=== PATIENT | female | born 1935 | race Asian ===

== ENCOUNTER 2017-01-06 22:35 | Inpatient (IN) | payer MEDICARE, OTHER ==
[~2017-01-06] VITALS: Ht 144.8 cm; Wt 41.5 kg
[~2017-01-06 22:35] MED LIST: CALC650T12 PO; DICL75TA2 PO; DOCU250C58 PO; FER325 PO; FURO40SO PO; GABA300S PO; HYDR-3672 PO; METO-429 PO; NIFE60TA7 PO; PANT40TA4 PO; POTA8CAP PO; SITA50TA2 PO; vit d
[2017-01-06 23:00] VITALS: BP 128/69; PULSE 62; RESP 20
[2017-01-06] MEDS ORDERED: MAGNESIUM HYDROXIDE 30ML CUP PO PRN (23:30)
[2017-01-06] MEDS ORDERED: LACTULOSE 30ML CUP PO PRN (23:30)
[2017-01-06] MEDS ORDERED: BISACODYL 10 MG SUPP PR PRN (23:30)
[2017-01-06 23:56] VITALS: Ht 144.8 cm; Wt 41.5 kg
[2017-01-07] MEDS ORDERED: GUAIFENESIN/DM 5ML CUP PO PRN
[2017-01-07] MEDS ORDERED: LORAZEPAM 2 MG INJ IV PRN
[2017-01-07] MEDS ORDERED: ONDANSETRON 4 MG INJ IV PRN
[2017-01-07] MEDS ORDERED: LORAZEPAM 1 MG TAB PO PRN
[2017-01-07] MEDS ORDERED: DEXTROSE 50% 50 ML SYRINGE IV PRN ×2 (01:00)
[2017-01-07] MEDS ORDERED: GLUCAGON 1 MG INJ IM PRN (01:00)
[2017-01-07] MEDS ORDERED: GLUCOSE GEL 15 GRAM TUBE PO PRN ×2 (01:00)
[2017-01-07] MEDS ORDERED: GLUCOSE GEL 15 GRAM TUBE BUCCAL PRN (01:00)
[2017-01-07] MEDS: ACCUCHECK AT 2AM (Patients on SS coverage) XX SCH (02:45)
[2017-01-07] MEDS: PANTOPRAZOLE (EC) 40 MG TAB PO SCH (06:30)
[2017-01-07 07:30] VITALS: BP 156/69; RESP 20
[2017-01-07] MEDS ORDERED: NOVOLOG PEN INSULIN ASPART (BOLUS with meals) SC SCH (07:35)
[2017-01-07 07:48] LABS: ADD SCAN DIFF NO
[2017-01-07 07:53] LABS: ABNORMAL IP MESSAGE 1; EOSINOPHILS # 0.2 10^3/ul (0.0-0.5); EOSINOPHILS % 3.4 % (0.0-7.0); HEMATOCRIT 32.7 % (37.0-47.0); HEMOGLOBIN 10.3 g/dl (12.0-16.0); LYMPHOCYTES % 14.7 % (15.0-51.0); MEAN CORPUSCULAR HEMOGLOBIN 24.1 pg (29.0-33.0); MEAN CORPUSCULAR HGB CONC 31.5 g/dl (32.0-37.0); MEAN CORPUSCULAR VOLUME 76.6 fl (82.0-101.0); MONOCYTE # 0.8 10^3/ul (0.3-0.9); MONOCYTES % 11.8 % (0.0-11.0); NEUTROPHIL # 4.9 10^3/ul (1.6-7.5); NEUTROPHILS % 69.7 % (39.0-77.0); PLATELET COUNT 140 10^3/UL (140-415); RED BLOOD COUNT 4.27 10^6/ul (4.20-5.40); RED CELL DISTRIBUTION WIDTH 22.5 % (11.5-14.5)
[2017-01-07 08:03] LABS: ALBUMIN 2.8 g/dl (3.3-4.9)
[2017-01-07 08:04] LABS: POTASSIUM 4.9 mmol/L (3.5-5.1)
[2017-01-07] MEDS: NOVOLOG PEN INSULIN ASPART (BOLUS with meals) SC SCH ×3 (08:04→17:59)
[2017-01-07] MEDS: Insulin NOVOLOG SS MILD Algorithm (SS with meals and bedtime) SC SCH ×4 (08:05→21:52)
[2017-01-07 08:06] LABS: ALBUMIN/GLOBULIN RATIO 0.77; BILIRUBIN,INDIRECT 0.6 mg/dl (0-1.1); BILIRUBIN,TOTAL 0.6 mg/dl (0.2-1.3); CREATININE 2.16 mg/dl (0.44-1.00); TOTAL PROTEIN 6.4 g/dl (6.1-8.1)
[2017-01-07 08:07] LABS: CALCIUM 7.9 mg/dl (8.4-10.2)
[2017-01-07 08:07] LABS: ADD UMIC YES; URINE BILIRUBIN (Dip) NEGATIVE (NEGATIVE); URINE BLOOD (Dip) NEGATIVE (NEGATIVE); URINE COLOR LT. YELLOW (YELLOW); URINE GLUCOSE (Dip) NEGATIVE (NEGATIVE); URINE KETONES (Dip) NEGATIVE (NEGATIVE); URINE LEUKOCYTE ESTERASE (Dip) NEGATIVE (NEGATIVE); URINE NITRITE (Dip) NEGATIVE (NEGATIVE); URINE TOTAL PROTEIN (Dip) 2+ (NEGATIVE); URINE UROBILINOGEN (Dip) 0.2 E.U./dL (0.1-1.0)
[2017-01-07 08:26] LABS: SQUAMOUS EPITHELIAL CELL,UR OCCASIONAL; URINE RBCS NONE SEEN /HPF (0)
[2017-01-07] MEDS: ACETAMINOPHEN 325 MG TAB PO PRN ×3 (08:34→21:48)
[2017-01-07] MEDS: ASPIRIN 81 MG TAB PO SCH (08:34)
[2017-01-07] MEDS: METOPROLOL 25 MG TAB PO SCH ×2 (08:35→21:32)
[2017-01-07] MEDS: DOCUSATE SODIUM 100 MG CAP PO SCH ×2 (08:35→21:32)
[2017-01-07] MEDS: OLANZAPINE 5 MG TAB PO SCH (08:36)
[2017-01-07] MEDS: ISOSORBIDE DINITRATE (SA) 40 MG TAB PO SCH ×3 (08:36→21:49)
[2017-01-07] MEDS: AMLODIPINE 5 MG TAB PO SCH ×2 (08:36→21:32)
[2017-01-07] MEDS: HEPARIN 5,000 UNIT/0.5 ML SYG SC SCH ×2 (08:37→21:51)
--- NOTE | 2017-01-07 11:03 | HP ---
DATE OF ADMISSION: 01/06/2017 CHIEF COMPLAINT: Respiratory failure, urinary tract infection HISTORY OF PRESENT ILLNESS: This is a 81-year-old female with a past medical history of diabetes, h ypertension, COPD, history of CKD stage IV, history of diastolic heart failure, anemia, insomnia who was admitted to an outside hospital with acute respiratory failure and altered mental status. The patient was in her usual state of health until about 2 days prior to admission when she was complain ing of shortness of breath, increased chest pain, cough. As a result, she came into [facility] and was subsequently admitted. The patient was diagnosed with acute respiratory failure secondary to pneumonia as well as chronic obstructive pulmonary disease exacerbation and urinary tr act infection. The patient was treated with IV antibiotics, nebulized therapy, steroids with clinic al improvement. Patient during the hospital course did have an episode of acute encephalopathy whic h is felt to be due to prolonged hospital stay and sepsis. The patient had a CT scan of the head wh ich was negative for any acute findings. The patient's mental status improved back towards baseline . The patient also had acute kidney injury during the hospital course. This was felt to be seconda ry to sepsis. Her renal function stabilized and returned back to her previous baseline. The patient was subsequently stabilized and transferred over to [facility] for continued c are. Upon my evaluation of the patient at this time she is currently stable, has no fevers, chills, nause a, vomiting. PAST MEDICAL HISTORY: As stated above, history of CKD stage IV, diabetes, anemia, osteoarthritis, C OPD, diastolic heart failure. PAST SURGICAL HISTORY: . ALLERGIES: NO KNOWN DRUG ALLERGIES. FAMILY HISTORY: No family history of kidney disease or heart disease. MEDICATIONS: Patient medications have been reviewed and reconciled. REVIEW OF SYSTEMS: A 14-point review of systems was conducted. Pertinent positives in HPI, otherwi se negative. PHYSICAL EXAMINATION: VITAL SIGNS: Blood pressure is 120/69, respirations 20, pulse 62, temperature 98.5. HEENT: Head is normocephalic. NECK: Supple. HEART: Regular rate. LUNGS: Show diminished breath sounds at the base. ABDOMEN: Soft, nontender to palpation. No rebound or guarding. EXTREMITIES: Negative for clubbing, cyanosis, no edema. DERMATOLOGIC: No rashes. MUSCULOSKELETAL: No joint effusions. NEUROLOGIC: No change in exam. MEDICATIONS: The patient's medications have been reviewed. LABORATORY DATA: Shows a white count of 7.0, hemoglobin 10.3, hematocrit 32.7, platelet count 140. Sodium 142, potassium 4.9, chloride 108, BUN 52, creatinine 2.16. ASSESSMENT AND PLAN: This is a 81-year-old female who presents with: 1. Acute respiratory failure secondary to chronic obstructive pulmonary disease exacerbation, pneum onia. The patient is clinically improved status post antibiotics. At this point, continue current treatment plan. Continue supplemental oxygen and nebulizer therapy, monitor closely. 2. Nonoliguric acute kidney injury on top of chronic kidney disease, stage IV. Etiology secondary to hemodynamics. The patient's renal function has improved, currently at baseline. Continue suppor tive care, renally dose all meds, avoid nephrotoxins. 3. Urinary tract infection. Patient has completed antibiotic course. 4. Acute encephalopathy and dementia. Etiology is toxic metabolic. The patient's mental status im proved. Continue to monitor. 5. History of diastolic heart failure. The patient is currently stable, euvolemic. Continue medic al management. 6. Hypertension. Continue current blood pressure regimen. 7. Diabetes. Continue current insulin regimen. 8. Anemia. The patient is status post blood transfusion. Continue to monitor H and H levels. 9. GI and deep venous thrombosis prophylaxis. Continue proton pump inhibitor and heparin. 10. General debility. Continue physical therapy. 11. Dementia. Continue Zyprexa. Dictated By: MIKE ROSA/MADAN Conf#: [id number] DID#: [id number]
--- NOTE | 2017-01-07 13:07 | CONS ---
DATE OF ADMISSION: 01/06/2017 DATE OF CONSULTATION: 01/06/2017 TYPE OF CONSULTATION: REHABILITATION POST-ADMISSION PHYSICIAN EVALUATION. REHABILITATION IMPAIRMENT CATEGORY: Toxic metabolic encephalopathy. ACTIVE COMORBIDITIES: 1. Status post acute respiratory failure chronic pulmonary disease exacerbation. 2. Diastolic heart failure. 3. Diabetes mellitus type 2. 4. Hypertension. 5. Acute kidney injury. 6. Urinary tract infection. 7. Impairments in self-care, mobility and cognition. HISTORY OF PRESENT ILLNESS: The patient is a pleasant 81-year-old female with a history of multipl e medical comorbidities who presented with increasing shortness of breath, cough and chest discomfor t. The patient was noted to have acute respiratory failure secondary to chronic obstructive pulmona ry disease exacerbation and diastolic heart failure. The patient was also noted to have acute on ch ronic encephalopathy in addition to acute kidney injury. She was also followed closely for her diab etes mellitus and her hypertension. Patient has been noted to have a significant impairment in self -care and mobility as compared to baseline, and has now been cleared to transfer to the rehabilitati on unit for comprehensive interdisciplinary rehab care. FUNCTIONAL HISTORY: Prior to recent events, the patient was independent in self-care tasks and mobi lity. Currently, the patient requires maximal assist for self-care and moderate assist for mobility tasks. SOCIAL HISTORY: The patient reportedly lives at home with family and hopes to return there upon dis charge. PAST MEDICAL HISTORY: 1. Diabetes mellitus. 2. Hypertension. 3. COPD. 4. Chronic kidney disease. 5. Anemia. CURRENT MEDICATIONS: 1. Insulin sliding scale. 2. Metoprolol 25 mg b.i.d. 3. Aspirin 81 mg p.o. daily. 4. Protonix 40 mg p.o. daily. 5. Zofran p.r.n. 6. Isordil 20 mg t.i.d. 7. Apresoline p.r.n. 8. Heparin subq. 9. Norvasc 5 mg b.i.d. 10. NovoLog 8 units subcutaneous prior to meals. 11. Ativan p.r.n. 12. Levemir 60 units subcu at bedtime. 13. Zyprexa 5 mg p.o. daily. 14. Robitussin p.r.n. ALLERGIES: THE PATIENT WITH NO KNOWN DRUG ALLERGIES. PHYSICAL EXAMINATION: VITAL SIGNS: The patient is currently afebrile with stable vital signs. HEENT: Extraocular motions intact. Oropharynx clear. NECK: Supple. LUNGS: Clear anteriorly. CARDIAC: S1, S2. ABDOMEN: Soft, nontender, positive bowel sounds. EXTREMITIES: Reveals multiple ecchymoses. NEUROLOGIC: She is awake and alert. She is oriented to person. She will follow simple 1-step com mands. She demonstrates antigravity strength in bilateral upper extremity and lower extremity. PLAN: The patient has been admitted for comprehensive interdisciplinary acute rehab and is anticipa gilbert to tolerate 3 hours of daily therapy in divided doses for at least 5/7 days a week. Treatment p harish will include: 1. Physical therapy to focus on bed mobility, transfers, and household ambulation with the goal of having the patient reach standby assist level. 2. Occupational therapy to focus on hygiene, grooming, dressing, bathing, and toileting activities with goal of having the patient reach standby assist level. 3. Speech therapy for full cognitive assessment and retraining with the goal of having the patient return to baseline cognition. 4. Rehabilitation nursing for carryover of therapeutic interventions, the goal of continent of rachael l and bladder, and the goal of pain adequately managed on oral medications. REHABILITATION BARRIER: Cognition. INTERVENTION FOR BARRIER: Speech therapy. ESTIMATED LENGTH OF STAY: 10 days. DISPOSITION GOAL: Home. I acknowledge that I performed a full physical examination on this patient within 24 hours of admiss ion to the rehabilitation unit and believe the patient is a good candidate for comprehensive interdi sciplinary rehab care and is anticipated to make reasonable goals in a reasonable period of time as outlined above. Dictated By: ADRIANNE OLIVAREZ/MADAN Conf#: [id number] DID#: [id number]
[2017-01-07 20:00] VITALS: BP 133/60; RESP 18
[2017-01-07] MEDS: SENNA TAB PO SCH (21:32)
[2017-01-07] MEDS: INSULIN DETEMIR [LEVEMIR] 3ML CART SC SCH (21:50)
[2017-01-08] MEDS: ACCUCHECK AT 2AM (Patients on SS coverage) XX SCH (02:30)
[2017-01-08] MEDS: PANTOPRAZOLE (EC) 40 MG TAB PO SCH (06:35)
[2017-01-08] MEDS: Insulin NOVOLOG SS MILD Algorithm (SS with meals and bedtime) SC SCH ×4 (07:05→21:00)
[2017-01-08] MEDS: OLANZAPINE 5 MG TAB PO SCH (08:27)
[2017-01-08] MEDS: DOCUSATE SODIUM 100 MG CAP PO SCH ×2 (08:27→20:42)
[2017-01-08] MEDS: AMLODIPINE 5 MG TAB PO SCH ×2 (08:27→20:40)
[2017-01-08] MEDS: ASPIRIN 81 MG TAB PO SCH (08:27)
[2017-01-08] MEDS: METOPROLOL 25 MG TAB PO SCH ×2 (08:28→21:34)
[2017-01-08] MEDS: ISOSORBIDE DINITRATE (SA) 40 MG TAB PO SCH ×3 (08:28→20:40)
[2017-01-08] MEDS: ACETAMINOPHEN 325 MG TAB PO PRN (08:29)
[2017-01-08] MEDS: NOVOLOG PEN INSULIN ASPART (BOLUS with meals) SC SCH ×3 (08:30→17:54)
[2017-01-08] MEDS: HEPARIN 5,000 UNIT/0.5 ML SYG SC SCH (08:31)
--- NOTE | 2017-01-08 09:42 | PN ---
DATE: 01/08/2017 SUBJECTIVE: The patient is complaining of left foot pain. No other acute events noted. No hemopty sis, hematemesis or hematochezia. OBJECTIVE: VITAL SIGNS: Blood pressure 133/60, respirations 18, pulse 68, temperature 97.8. HEENT: Head is normocephalic. NECK: Supple. HEART: Regular rate. LUNGS: Show diminished breath sounds at the base. ABDOMEN: Soft, nontender to palpation. No rebound or guarding. EXTREMITIES: Negative for clubbing or cyanosis. No edema. Positive tenderness to palpation of the left anterior dorsal foot. NEUROLOGIC: No change in exam. DERMATOLOGIC: No rashes. MEDICATIONS: The patient's medications have been reviewed. LABORATORY DATA: Currently pending. ASSESSMENT AND PLAN: 1. Acute respiratory failure secondary to chronic obstructive pulmonary disease exacerbation and pn eumonia. The patient is clinically improved. The patient is status post antibiotics. Will continu e to monitor. 2. Nonoliguric acute kidney injury on top of chronic kidney disease stage IV. Etiology is secondar y to hemodynamics. Renal function has stabilized back to baseline. Continue supportive care. 3. Urinary tract infection. The patient completed an antibiotic course. 4. Left foot pain. Etiology is unclear. Will check a chest x-ray, check a uric acid level, contin ue pain control. 5. History of diastolic heart failure. Continue medical management. 6. Hypertension. Continue the current blood pressure regimen. 7. Diabetes. Continue the current insulin regimen. 8. Anemia. The patient is status post blood transfusion. Continue to monitor hemoglobin and hemat ocrit levels. 9. Dementia. Continue Zyprexa. 10. Gastrointestinal and deep venous thrombosis prophylaxis. Continue proton pump inhibitor and Lo venox. Dictated By: MIKE ALBERT DO NR/NTS Conf#: [id number] DID#: [id number]
[2017-01-08 16:26] VITALS: BP 150/53; RESP 16
--- NOTE | 2017-01-08 16:53 | RADRPT ---
PROCEDURE: XR Left Foot. CLINICAL INDICATION: Left foot pain. TECHNIQUE: Two views. Frontal and lateral. COMPARISON: None. FINDINGS: There is no acute fracture or dislocation. There is an old healed fracture of the distal neck of th e third metatarsal with minimal deformity. The soft tissues are normal. There is diffuse osteopenia. Articular surfaces are intact. There is no lytic or blastic lesion. There is no radiopaque foreign body. IMPRESSION: 1. Diffuse osteopenia. 2. Old healed fracture of the distal neck of the third metatarsal. 3. Otherwise normal images of the left foot. RPTAT: QQ .Lane Hernandez MD, MD Date Time Electronically viewed and signed by .Lane Hernandez MD, on 01/08/2017 16:52 .R/
[2017-01-08 20:10] VITALS: BP 138/65; RESP 20
[2017-01-08] MEDS: SENNA TAB PO SCH (20:40)
[2017-01-08] MEDS: ZOLPIDEM 5 MG TAB PO PRN (20:41)
[2017-01-08] MEDS: INSULIN DETEMIR [LEVEMIR] 3ML CART SC SCH (20:51)
[2017-01-09] MEDS: ACCUCHECK AT 2AM (Patients on SS coverage) XX SCH (02:00)
[2017-01-09] MEDS: PANTOPRAZOLE (EC) 40 MG TAB PO SCH (06:37)
[2017-01-09 07:00] LABS: ADD SCAN DIFF NO
[2017-01-09 07:09] LABS: ABNORMAL IP MESSAGE 1; BASOPHILS % 0.2 % (0.0-2.0); EOSINOPHILS # 0.2 10^3/ul (0.0-0.5); HEMATOCRIT 32.2 % (37.0-47.0); HEMOGLOBIN 10.4 g/dl (12.0-16.0); LYMPHOCYTES # 0.8 10^3/ul (0.8-2.9); LYMPHOCYTES % 13.7 % (15.0-51.0); MEAN CORPUSCULAR HEMOGLOBIN 24.6 pg (29.0-33.0); MEAN CORPUSCULAR HGB CONC 32.3 g/dl (32.0-37.0); MEAN CORPUSCULAR VOLUME 76.3 fl (82.0-101.0); MONOCYTE # 0.6 10^3/ul (0.3-0.9); MONOCYTES % 9.6 % (0.0-11.0); NEUTROPHIL # 4.4 10^3/ul (1.6-7.5); PLATELET COUNT 175 10^3/UL (140-415); RED BLOOD COUNT 4.22 10^6/ul (4.20-5.40); RED CELL DISTRIBUTION WIDTH 22.1 % (11.5-14.5)
[2017-01-09 07:27] LABS: POTASSIUM 4.4 mmol/L (3.5-5.1)
[2017-01-09 07:29] LABS: CREATININE 2.44 mg/dl (0.44-1.00)
[2017-01-09 07:30] LABS: CALCIUM 8.3 mg/dl (8.4-10.2); MAGNESIUM 2.4 mg/dl (1.7-2.5)
[2017-01-09 07:44] VITALS: BP 147/65; PULSE 59; RESP 20
[2017-01-09] MEDS: OLANZAPINE 5 MG TAB PO SCH (08:11)
[2017-01-09] MEDS: ASPIRIN 81 MG TAB PO SCH (08:13)
[2017-01-09] MEDS: AMLODIPINE 5 MG TAB PO SCH ×2 (08:13→20:07)
[2017-01-09] MEDS: METOPROLOL 25 MG TAB PO SCH ×2 (08:13→20:07)
[2017-01-09] MEDS: DOCUSATE SODIUM 100 MG CAP PO SCH ×2 (08:14→20:06)
[2017-01-09] MEDS: ISOSORBIDE DINITRATE (SA) 40 MG TAB PO SCH ×3 (08:14→21:01)
[2017-01-09] MEDS: Insulin NOVOLOG SS MILD Algorithm (SS with meals and bedtime) SC SCH ×4 (08:17→21:04)
[2017-01-09] MEDS: NOVOLOG PEN INSULIN ASPART (BOLUS with meals) SC SCH ×3 (08:17→17:38)
[2017-01-09] MEDS: ENOXAPARIN 30 MG/0.3 ML SYG SC SCH (08:18)
--- NOTE | 2017-01-09 09:39 | PN ---
DATE: 01/09/2017 SUBJECTIVE: The patient is stable, no acute events overnight. No fevers, chills, nausea, vomiting. OBJECTIVE: VITAL SIGNS: Blood pressure 146/65, respiration 20, pulse 59, temperature 98.2. HEENT: Head is normocephalic. NECK: Supple. HEART: Regular rate. LUNGS: Show diminished breath sounds at the base. ABDOMEN: Soft, nontender to palpation. No rebound or guarding. EXTREMITIES: Negative for clubbing, cyanosis, no edema. DERMATOLOGIC: No rashes. MUSCULOSKELETAL: No joint effusions. The patient has mild pain over the left foot, improved. NEUROLOGICAL: No change in exam. IMAGING: X-rays of the left foot shows diffuse osteopenia, old healed fracture, otherwise, normal. LABORATORY DATA: Laboratory data shows uric acid 8.3. Sodium 147, potassium 4.4, chloride 113, BUN 6, creatinine 2.44. White count 6.9, hemoglobin 10.4, hematocrit 32.2, platelet count is 175. ASSESSMENT AND PLAN: 1. Acute respiratory failure secondary to chronic obstructive pulmonary disease exacerbation, pneum onia. The patient is clinically improving. Continue supplemental oxygen. The patient is status po st antibiotics. 2. Nonoliguric acute kidney injury on top of chronic kidney disease stage IV. Etiology is secondar y to hemodynamics, sepsis. Renal function is near baseline. Continue current treatment plan, suppo rtive care, renally dose all meds. 3. Urinary tract infection. The patient has completed antibiotic course. 4. Left foot pain. The patient's x-ray shows no acute fracture. The patient has an elevated uric acid level, questionable gout. We will continue to monitor. If pain continues we will give colchic ine. 5. Acute diastolic heart failure. Continue medical management. 6. Hypertension. Continue current blood pressure regimen. 7. Diabetes. Continue current insulin regimen. 8. Anemia. Continue to monitor hemoglobin and hematocrit levels. 9. Dementia. Continue Zyprexa. 10. Gastrointestinal and deep venous thrombosis prophylaxis. Continue proton pump inhibitor and Lo venox. 11. Hypernatremia. We will encourage free water intake 300 mL q. shift. Dictated By: MIKE ROSA/MADAN Conf#: [id number] DID#: [id number]
[2017-01-09 09:54] VITALS: BP 147/65; RESP 18
--- NOTE | 2017-01-09 11:23 | CONS ---
Date/Time of Note Date/Time of Note DATE: 01/09/17 TIME: 11:22 Consult Date/Type/Reason Admit Date/Time Jan 06, 2017 at 22:35 Initial Consult Date Subjective Doing well Objective pulm-cta abd-soft min assist ambulation Vital Signs Date Time Temp Pulse Resp B/P Pulse Ox O2 Delivery O2 Flow Rate FiO2 01/09/17 09:54 98.2 59 18 147/65 94 01/09/17 07:44 Room Air 01/07/17 19:32 2.0 Intake and Output 01/08/17 01/08/17 01/09/17 15:00 23:00 07:00 Intake Total 300 ml 50 ml Balance 300 ml 50 ml Results/Medications Result Diagram: 01/09/17 0600 01/09/17 0600 Results 24 hrs Laboratory Tests Test 01/08/17 11:45 01/08/17 17:02 01/08/17 20:36 01/09/17 06:00 Bedside Glucose 128 138 143 Anion Gap 17 H Basophils # 0.0 Basophils % 0.2 Blood Urea Nitrogen 60 H Calcium Level 8.3 L Carbon Dioxide Level 21 Chloride Level 113 H Creatinine 2.44 H Eosinophils # 0.2 Eosinophils % 3.0 Glucose Level 189 Hematocrit 32.2 L Hemoglobin 10.4 L Lymphocytes # 0.8 Lymphocytes % 13.7 L Magnesium Level 2.4 Mean Corpuscular Hemoglobin 24.6 L Mean Corpuscular Hemoglobin Concent 32.3 Mean Corpuscular Volume 76.3 L Mean Platelet Volume Monocytes # 0.6 Monocytes % 9.6 Neutrophils # 4.4 Neutrophils % 73.0 Nucleated Red Blood Cells # 0.0 Nucleated Red Blood Cells % 0.0 Phosphorus Level 4.0 Platelet Count 175 # Potassium Level 4.4 Red Blood Count 4.22 Red Cell Distribution Width 22.1 H Sodium Level 147 H White Blood Count 6.0 Test 01/09/17 07:35 Bedside Glucose 168 Medications Current Medications Docusate Sodium (Colace) 100 mg BID PO Last administered on 01/09/17 08:14; Admin Dose 100 MG; Start 01/07/17 at 09:00 Senna (Senokot) 1 tab HS PO Last administered on 01/08/17 20:40; Admin Dose 1 TAB; Start 01/07/17 at 21:00 Magnesium Hydroxide (Milk Of Mag) 30 ml BID PRN PO CONSTIPATION; Start at 23:30 Lactulose (Enulose) 20 gm DAILY PRN PO CONSTIPATION; Start 01/06/17 at 23:30 Bisacodyl (Dulcolax Supp) 10 mg DAILY PRN [place] CONSTIPATION; Start 01/06/17 at 23 :30 Metoprolol Tartrate (Lopressor) 25 mg BID PO Last administered on 01/09/17 08: 13; Admin Dose 25 MG; Start 01/07/17 at 09:00 Aspirin (Aspirin) 81 mg DAILY PO Last administered on 01/09/17 08:13; Admin Dose 81 MG; Start 01/07/17 at 09:00 Pantoprazole (Protonix Tab) 40 mg DAILY@06 PO Last administered on 01/09/17 06: 37; Admin Dose 40 MG; Start 01/07/17 at 06:00 Ondansetron HCl (Zofran Inj) 4 mg Q4H PRN IV NAUSEA AND/OR VOMITING; Start 01/07 at 00:00 Acetaminophen (Tylenol Tab) 650 mg Q6H PRN PO PAIN AND OR ELEVATED TEMP Last administered on 01/08/17 08:29; Admin Dose 650 MG; Start 01/07/17 at 00:00 Isosorbide Dinitrate (Isordil (Sa)) 20 mg TID PO Last administered on 01/09/17 08:14; Admin Dose 20 MG; Start 01/07/17 at 09:00 Amlodipine Besylate (Norvasc) 5 mg BID PO Last administered on 01/09/17 08:13; Admin Dose 5 MG; Start 01/07/17 at 09:00 Lorazepam (Ativan) 1 mg Q12 PRN PO AGITATION; Start 01/07/17 at 00:00 Lorazepam (Ativan) 0.5 mg Q4 PRN IV ANXIETY; Start 01/07/17 at 00:00 Hydralazine HCl (Apresoline) 50 mg TID PO Last administered on 01/09/17 08:13; Admin Dose 50 MG; Start 01/07/17 at 09:00 Insulin Detemir (Levemir) 6 unit DAILY@20 SC Last administered on 01/08/17 20: 51; Admin Dose 6 UNIT; Start 01/07/17 at 20:00 Guaifenesin/ Dextromethorphan (Robitussin Dm Liquid Cup) 10 ml Q4H PRN PO COUGH ; Start 01/07/17 at 00:00 Olanzapine (Zyprexa) 5 mg DAILY PO Last administered on 01/09/17 08:11; Admin Dose 5 MG; Start 01/07/17 at 09:00 Miscellaneous Information 1 ea NOTE XX ; Start 01/07/17 at 01:00 Glucose (Glutose) 15 gm Q15M PRN PO DECREASED GLUCOSE; Start 01/07/17 at 01:00 Glucose (Glutose) 22.5 gm Q15M PRN PO DECREASED GLUCOSE; Start 01/07/17 at 01:00 Dextrose (D50w Syringe) 25 ml Q15M PRN IV DECREASED GLUCOSE; Start 01/07/17 at 01:00 Dextrose (D50w Syringe) 50 ml Q15M PRN IV DECREASED GLUCOSE; Start 01/07/17 at 01:00 Glucagon (Glucagen) 1 mg Q15M PRN IM DECREASED GLUCOSE; Start 01/07/17 at 01:00 Glucose (Glutose) 15 gm Q15M PRN BUCCAL DECREASED GLUCOSE; Start 01/07/17 at 01: 00 Diagnostic Test (Pha) (Accucheck) 1 ea 02 XX Last administered on 01/08/17 02: 30; Admin Dose 1 EA; Start 01/07/17 at 02:00 Enoxaparin Sodium (Lovenox) 30 mg DAILY SC Last administered on 01/09/17 08:18 ; Admin Dose 30 MG; Start 01/09/17 at 09:00 Zolpidem Tartrate (Ambien) 5 mg HS PRN PO INSOMNIA Last administered on 20:41; Admin Dose 5 MG; Start 01/08/17 at 12:00 Acetaminophen/ Hydrocodone Bitart ([place] (5/325)) 1 tab Q6H PRN PO PAIN; Start 01/09/17 at 11:00 Assessment/Plan Additional Assessment/Plan Rehab- Toxic metabolic encephalopathy. Continue treatment plan Foot pain- xray negative. [place] prn Status post acute respiratory failure chronic pulmonary disease exacerbation. Diastolic heart failure. Diabetes mellitus type 2. Hypertension. Acute kidney injury. Urinary tract infection. ADRIANNE BURDEN MD Jan 09, 2017 11:23
[2017-01-09] MEDS: HYDROCODONE/APAP (5/325) TAB PO PRN (12:31)
[2017-01-09 20:00] VITALS: BP 152/65; RESP 19
[2017-01-09] MEDS: ACETAMINOPHEN 325 MG TAB PO PRN (20:06)
[2017-01-09] MEDS: SENNA TAB PO SCH (20:07)
[2017-01-09] MEDS: ZOLPIDEM 5 MG TAB PO PRN (21:00)
[2017-01-09] MEDS: INSULIN DETEMIR [LEVEMIR] 3ML CART SC SCH (21:03)
[2017-01-10] MEDS: ACCUCHECK AT 2AM (Patients on SS coverage) XX SCH (02:00)
[2017-01-10] MEDS: PANTOPRAZOLE (EC) 40 MG TAB PO SCH (06:40)
[2017-01-10 06:51] LABS: ADD SCAN DIFF NO
[2017-01-10 06:57] LABS: ABNORMAL IP MESSAGE 1; EOSINOPHILS # 0.2 10^3/ul (0.0-0.5); EOSINOPHILS % 3.8 % (0.0-7.0); HEMATOCRIT 32.1 % (37.0-47.0); HEMOGLOBIN 10.1 g/dl (12.0-16.0); LYMPHOCYTES # 1.1 10^3/ul (0.8-2.9); LYMPHOCYTES % 18.2 % (15.0-51.0); MEAN CORPUSCULAR HGB CONC 31.5 g/dl (32.0-37.0); MEAN CORPUSCULAR VOLUME 76.2 fl (82.0-101.0); MONOCYTE # 0.6 10^3/ul (0.3-0.9); MONOCYTES % 9.9 % (0.0-11.0); NEUTROPHIL # 4.1 10^3/ul (1.6-7.5); NEUTROPHILS % 67.8 % (39.0-77.0); PLATELET COUNT 166 10^3/UL (140-415); RED BLOOD COUNT 4.21 10^6/ul (4.20-5.40); RED CELL DISTRIBUTION WIDTH 22.4 % (11.5-14.5); WHITE BLOOD COUNT 6.1 10^3/ul (4.8-10.8)
[2017-01-10 07:02] LABS: POTASSIUM 4.5 mmol/L (3.5-5.1)
[2017-01-10 07:05] LABS: CREATININE 2.26 mg/dl (0.44-1.00)
[2017-01-10 07:06] LABS: CALCIUM 8.2 mg/dl (8.4-10.2); MAGNESIUM 2.4 mg/dl (1.7-2.5); PHOSPHORUS 3.7 mg/dl (2.5-4.9)
[2017-01-10 07:30] VITALS: BP 143/63; RESP 20
[2017-01-10] MEDS: OLANZAPINE 5 MG TAB PO SCH (08:03)
[2017-01-10] MEDS: AMLODIPINE 5 MG TAB PO SCH ×2 (08:03→20:40)
[2017-01-10] MEDS: ASPIRIN 81 MG TAB PO SCH (08:03)
[2017-01-10] MEDS: METOPROLOL 25 MG TAB PO SCH ×2 (08:04→20:40)
[2017-01-10] MEDS: ISOSORBIDE DINITRATE (SA) 40 MG TAB PO SCH ×3 (08:04→20:40)
[2017-01-10] MEDS: DOCUSATE SODIUM 100 MG CAP PO SCH ×2 (08:05→20:39)
[2017-01-10] MEDS: ENOXAPARIN 30 MG/0.3 ML SYG SC SCH (08:08)
[2017-01-10] MEDS: NOVOLOG PEN INSULIN ASPART (BOLUS with meals) SC SCH ×3 (08:08→17:46)
[2017-01-10] MEDS: Insulin NOVOLOG SS MILD Algorithm (SS with meals and bedtime) SC SCH ×4 (08:10→21:00)
[2017-01-10 08:16] VITALS: BP 143/63; PULSE 72; RESP 18
--- NOTE | 2017-01-10 09:33 | CONS ---
Date/Time of Note Date/Time of Note DATE: 01/10/17 TIME: 09:32 Consult Date/Type/Reason Admit Date/Time Jan 06, 2017 at 22:35 Initial Consult Date Subjective no new c/o. good uop. no cp/sob/n/v/f/c. Objective Vital Signs Date Time Temp Pulse Resp B/P Pulse Ox O2 Delivery O2 Flow Rate FiO2 01/10/17 08:16 98.2 72 18 143/63 99 Nasal Cannula 01/10/17 05:55 2.0 Intake and Output 01/09/17 01/09/17 01/10/17 15:00 23:00 07:00 Intake Total 2300 ml 200 ml Balance 2300 ml 200 ml HEENT: Head is normocephalic. NECK: Supple. HEART: Regular rate. LUNGS: Show diminished breath sounds at the base. ABDOMEN: Soft, nontender to palpation. No rebound or guarding. EXTREMITIES: Negative for clubbing, cyanosis, no edema. DERMATOLOGIC: No rashes. MUSCULOSKELETAL: No joint effusions. The patient has mild pain over the left foot, improved. NEUROLOGICAL: No change in exam. Results/Medications Result Diagram: 01/10/1718 01/10/17 0618 Results 24 hrs Laboratory Tests Test 01/09/17 11:52 01/09/17 17:10 01/09/17 20:56 01/10/17 06:18 Bedside Glucose 84 237 H 195 Anion Gap 16 Basophils # 0.0 Basophils % 0.0 Blood Urea Nitrogen 53 H Calcium Level 8.2 L Carbon Dioxide Level 20 L Chloride Level 114 H Creatinine 2.26 H Eosinophils # 0.2 Eosinophils % 3.8 Glucose Level 134 # Hematocrit 32.1 L Hemoglobin 10.1 L Lymphocytes # 1.1 Lymphocytes % 18.2 Magnesium Level 2.4 Mean Corpuscular Hemoglobin 24.0 L Mean Corpuscular Hemoglobin Concent 31.5 L Mean Corpuscular Volume 76.2 L Mean Platelet Volume Monocytes # 0.6 Monocytes % 9.9 Neutrophils # 4.1 Neutrophils % 67.8 Nucleated Red Blood Cells # 0.0 Nucleated Red Blood Cells % 0.0 Phosphorus Level 3.7 Platelet Count 166 Potassium Level 4.5 Red Blood Count 4.21 Red Cell Distribution Width 22.4 H Sodium Level 145 H White Blood Count 6.1 Test 01/10/17 07:29 Bedside Glucose 146 Medications Current Medications Docusate Sodium (Colace) 100 mg BID PO Last administered on 01/09/17 20:06; Admin Dose 100 MG; Start 01/07/17 at 09:00 Senna (Senokot) 1 tab HS PO Last administered on 01/09/17 20:07; Admin Dose 1 TAB; Start 01/07/17 at 21:00 Magnesium Hydroxide (Milk Of Mag) 30 ml BID PRN PO CONSTIPATION; Start at 23:30 Lactulose (Enulose) 20 gm DAILY PRN PO CONSTIPATION; Start 01/06/17 at 23:30 Bisacodyl (Dulcolax Supp) 10 mg DAILY PRN [place] CONSTIPATION; Start 01/06/17 at 23 :30 Metoprolol Tartrate (Lopressor) 25 mg BID PO Last administered on 01/10/17 08: 04; Admin Dose 25 MG; Start 01/07/17 at 09:00 Aspirin (Aspirin) 81 mg DAILY PO Last administered on 01/10/17 08:03; Admin Dose 81 MG; Start 01/07/17 at 09:00 Pantoprazole (Protonix Tab) 40 mg DAILY@06 PO Last administered on 01/10/17 06: 40; Admin Dose 40 MG; Start 01/07/17 at 06:00 Ondansetron HCl (Zofran Inj) 4 mg Q4H PRN IV NAUSEA AND/OR VOMITING; Start 01/07 at 00:00 Acetaminophen (Tylenol Tab) 650 mg Q6H PRN PO PAIN AND OR ELEVATED TEMP Last administered on 01/09/17 20:06; Admin Dose 650 MG; Start 01/07/17 at 00:00 Isosorbide Dinitrate (Isordil (Sa)) 20 mg TID PO Last administered on 01/10/17 08:04; Admin Dose 20 MG; Start 01/07/17 at 09:00 Amlodipine Besylate (Norvasc) 5 mg BID PO Last administered on 01/10/17 08:03; Admin Dose 5 MG; Start 01/07/17 at 09:00 Lorazepam (Ativan) 1 mg Q12 PRN PO AGITATION; Start 01/07/17 at 00:00 Lorazepam (Ativan) 0.5 mg Q4 PRN IV ANXIETY; Start 01/07/17 at 00:00 Hydralazine HCl (Apresoline) 50 mg TID PO Last administered on 01/10/17 08:05; Admin Dose 50 MG; Start 01/07/17 at 09:00 Insulin Detemir (Levemir) 6 unit DAILY@20 SC Last administered on 01/09/17 21: 03; Admin Dose 6 UNIT; Start 01/07/17 at 20:00 Guaifenesin/ Dextromethorphan (Robitussin Dm Liquid Cup) 10 ml Q4H PRN PO COUGH ; Start 01/07/17 at 00:00 Olanzapine (Zyprexa) 5 mg DAILY PO Last administered on 01/10/17 08:03; Admin Dose 5 MG; Start 01/07/17 at 09:00 Miscellaneous Information 1 ea NOTE XX ; Start 01/07/17 at 01:00 Glucose (Glutose) 15 gm Q15M PRN PO DECREASED GLUCOSE; Start 01/07/17 at 01:00 Glucose (Glutose) 22.5 gm Q15M PRN PO DECREASED GLUCOSE; Start 01/07/17 at 01:00 Dextrose (D50w Syringe) 25 ml Q15M PRN IV DECREASED GLUCOSE; Start 01/07/17 at 01:00 Dextrose (D50w Syringe) 50 ml Q15M PRN IV DECREASED GLUCOSE; Start 01/07/17 at 01:00 Glucagon (Glucagen) 1 mg Q15M PRN IM DECREASED GLUCOSE; Start 01/07/17 at 01:00 Glucose (Glutose) 15 gm Q15M PRN BUCCAL DECREASED GLUCOSE; Start 01/07/17 at 01: 00 Diagnostic Test (Pha) (Accucheck) 1 ea 02 XX Last administered on 01/08/17 02: 30; Admin Dose 1 EA; Start 01/07/17 at 02:00 Enoxaparin Sodium (Lovenox) 30 mg DAILY SC Last administered on 01/10/17 08:08 ; Admin Dose 30 MG; Start 01/09/17 at 09:00 Zolpidem Tartrate (Ambien) 5 mg HS PRN PO INSOMNIA Last administered on 21:00; Admin Dose 5 MG; Start 01/08/17 at 12:00 Acetaminophen/ Hydrocodone Bitart ([place] (5/325)) 1 tab Q6H PRN PO PAIN Last administered on 01/09/17t 12:31; Admin Dose 1 TAB; Start 01/09/17 at 11:00 Assessment/Plan Chief Complaint/Hosp Course 1. Acute respiratory failure secondary to chronic obstructive pulmonary disease exacerbation, pneumonia. The patient is clinically improving. Continue supplemental oxygen. The patient is status post antibiotics. 2. Nonoliguric acute kidney injury on top of chronic kidney disease stage IV. Etiology is secondary to hemodynamics, sepsis. Renal function is near baseline. Continue current treatment plan, supportive care, renally dose all meds. 3. Urinary tract infection. The patient has completed antibiotic course. 4. Left foot pain. The patient's x-ray shows no acute fracture. The patient has an elevated uric acid level, questionable gout. We will continue to monitor. If pain continues we will give colchicine. 5. Acute diastolic heart failure. Continue medical management. 6. Hypertension. Continue current blood pressure regimen. 7. Diabetes. Continue current insulin regimen. 8. Anemia. Continue to monitor hemoglobin and hematocrit levels. 9. Dementia. Continue Zyprexa. 10. Gastrointestinal and deep venous thrombosis prophylaxis. Continue proton pump inhibitor and Lovenox. 11. Hypernatremia. We will encourage free water intake 300 mL q. shift. Problems: ADY SUN MD Jan 10, 2017 09:32
--- NOTE | 2017-01-10 09:47 | CONS ---
Date/Time of Note Date/Time of Note DATE: 01/10/17 TIME: 09:47 Consult Date/Type/Reason Admit Date/Time Jan 06, 2017 at 22:35 Subjective Comfortable Objective pulm-cta abd-soft Vital Signs Date Time Temp Pulse Resp B/P Pulse Ox O2 Delivery O2 Flow Rate FiO2 01/10/17 08:16 98.2 72 18 143/63 99 Nasal Cannula 01/10/17 05:55 2.0 Intake and Output 01/09/17 01/09/17 01/10/17 15:00 23:00 07:00 Intake Total 2300 ml 200 ml Balance 2300 ml 200 ml Results/Medications Result Diagram: 01/10/1718 01/10/1718 Results 24 hrs Laboratory Tests Test 01/09/17 11:52 01/09/17 17:10 01/09/17 20:56 01/10/17 06:18 Bedside Glucose 84 237 H 195 Anion Gap 16 Basophils # 0.0 Basophils % 0.0 Blood Urea Nitrogen 53 H Calcium Level 8.2 L Carbon Dioxide Level 20 L Chloride Level 114 H Creatinine 2.26 H Eosinophils # 0.2 Eosinophils % 3.8 Glucose Level 134 # Hematocrit 32.1 L Hemoglobin 10.1 L Lymphocytes # 1.1 Lymphocytes % 18.2 Magnesium Level 2.4 Mean Corpuscular Hemoglobin 24.0 L Mean Corpuscular Hemoglobin Concent 31.5 L Mean Corpuscular Volume 76.2 L Mean Platelet Volume Monocytes # 0.6 Monocytes % 9.9 Neutrophils # 4.1 Neutrophils % 67.8 Nucleated Red Blood Cells # 0.0 Nucleated Red Blood Cells % 0.0 Phosphorus Level 3.7 Platelet Count 166 Potassium Level 4.5 Red Blood Count 4.21 Red Cell Distribution Width 22.4 H Sodium Level 145 H White Blood Count 6.1 Test 01/10/17 07:29 Bedside Glucose 146 Medications Current Medications Docusate Sodium (Colace) 100 mg BID PO Last administered on 01/09/17 20:06; Admin Dose 100 MG; Start 01/07/17 at 09:00 Senna (Senokot) 1 tab HS PO Last administered on 01/09/17 20:07; Admin Dose 1 TAB; Start 01/07/17 at 21:00 Magnesium Hydroxide (Milk Of Mag) 30 ml BID PRN PO CONSTIPATION; Start at 23:30 Lactulose (Enulose) 20 gm DAILY PRN PO CONSTIPATION; Start 01/06/17 at 23:30 Bisacodyl (Dulcolax Supp) 10 mg DAILY PRN [place] CONSTIPATION; Start 01/06/17 at 23 :30 Metoprolol Tartrate (Lopressor) 25 mg BID PO Last administered on 01/10/17 08: 04; Admin Dose 25 MG; Start 01/07/17 at 09:00 Aspirin (Aspirin) 81 mg DAILY PO Last administered on 01/10/17 08:03; Admin Dose 81 MG; Start 01/07/17 at 09:00 Pantoprazole (Protonix Tab) 40 mg DAILY@06 PO Last administered on 01/10/17 06: 40; Admin Dose 40 MG; Start 01/07/17 at 06:00 Ondansetron HCl (Zofran Inj) 4 mg Q4H PRN IV NAUSEA AND/OR VOMITING; Start 01/07 at 00:00 Acetaminophen (Tylenol Tab) 650 mg Q6H PRN PO PAIN AND OR ELEVATED TEMP Last administered on 01/09/17 20:06; Admin Dose 650 MG; Start 01/07/17 at 00:00 Isosorbide Dinitrate (Isordil (Sa)) 20 mg TID PO Last administered on 01/10/17 08:04; Admin Dose 20 MG; Start 01/07/17 at 09:00 Amlodipine Besylate (Norvasc) 5 mg BID PO Last administered on 01/10/17 08:03; Admin Dose 5 MG; Start 01/07/17 at 09:00 Lorazepam (Ativan) 1 mg Q12 PRN PO AGITATION; Start 01/07/17 at 00:00 Lorazepam (Ativan) 0.5 mg Q4 PRN IV ANXIETY; Start 01/07/17 at 00:00 Hydralazine HCl (Apresoline) 50 mg TID PO Last administered on 01/10/17 08:05; Admin Dose 50 MG; Start 01/07/17 at 09:00 Insulin Detemir (Levemir) 6 unit DAILY@20 SC Last administered on 01/09/17 21: 03; Admin Dose 6 UNIT; Start 01/07/17 at 20:00 Guaifenesin/ Dextromethorphan (Robitussin Dm Liquid Cup) 10 ml Q4H PRN PO COUGH ; Start 01/07/17 at 00:00 Olanzapine (Zyprexa) 5 mg DAILY PO Last administered on 01/10/17 08:03; Admin Dose 5 MG; Start 01/07/17 at 09:00 Miscellaneous Information 1 ea NOTE XX ; Start 01/07/17 at 01:00 Glucose (Glutose) 15 gm Q15M PRN PO DECREASED GLUCOSE; Start 01/07/17 at 01:00 Glucose (Glutose) 22.5 gm Q15M PRN PO DECREASED GLUCOSE; Start 01/07/17 at 01:00 Dextrose (D50w Syringe) 25 ml Q15M PRN IV DECREASED GLUCOSE; Start 01/07/17 at 01:00 Dextrose (D50w Syringe) 50 ml Q15M PRN IV DECREASED GLUCOSE; Start 01/07/17 at 01:00 Glucagon (Glucagen) 1 mg Q15M PRN IM DECREASED GLUCOSE; Start 01/07/17 at 01:00 Glucose (Glutose) 15 gm Q15M PRN BUCCAL DECREASED GLUCOSE; Start 01/07/17 at 01: 00 Diagnostic Test (Pha) (Accucheck) 1 ea 02 XX Last administered on 01/08/17 02: 30; Admin Dose 1 EA; Start 01/07/17 at 02:00 Enoxaparin Sodium (Lovenox) 30 mg DAILY SC Last administered on 01/10/17 08:08 ; Admin Dose 30 MG; Start 01/09/17 at 09:00 Zolpidem Tartrate (Ambien) 5 mg HS PRN PO INSOMNIA Last administered on 21:00; Admin Dose 5 MG; Start 01/08/17 at 12:00 Acetaminophen/ Hydrocodone Bitart ([place] (5/325)) 1 tab Q6H PRN PO PAIN Last administered on 01/09/17 12:31; Admin Dose 1 TAB; Start 01/09/17 at 11:00 Assessment/Plan Additional Assessment/Plan Rehab- Toxic metabolic encephalopathy. Continue rehab program Status post acute respiratory failure chronic pulmonary disease exacerbation. Diastolic heart failure. Diabetes mellitus type 2-monitor Hypertension. Acute kidney injury. Urinary tract infection. ADRIANNE BURDEN MD Jan 10, 2017 09:47
[2017-01-10 12:29] VITALS: BP 109/58; PULSE 58; RESP 18
[2017-01-10 19:26] VITALS: BP 158/67; RESP 20
[2017-01-10] MEDS: SENNA TAB PO SCH (20:38)
[2017-01-10] MEDS: ZOLPIDEM 5 MG TAB PO PRN (20:41)
[2017-01-10] MEDS: INSULIN DETEMIR [LEVEMIR] 3ML CART SC SCH (21:42)
[2017-01-11] MEDS: ACCUCHECK AT 2AM (Patients on SS coverage) XX SCH (02:00)
[2017-01-11] MEDS: PANTOPRAZOLE (EC) 40 MG TAB PO SCH (06:12)
[2017-01-11] MEDS: Insulin NOVOLOG SS MILD Algorithm (SS with meals and bedtime) SC SCH ×4 (07:05→20:26)
[2017-01-11 07:45] VITALS: BP 132/63; PULSE 62; RESP 18
[2017-01-11] MEDS: NOVOLOG PEN INSULIN ASPART (BOLUS with meals) SC SCH (07:56)
[2017-01-11] MEDS: ENOXAPARIN 30 MG/0.3 ML SYG SC SCH (08:05)
[2017-01-11] MEDS: METOPROLOL 25 MG TAB PO SCH ×2 (08:07→20:15)
[2017-01-11] MEDS: OLANZAPINE 5 MG TAB PO SCH (08:07)
[2017-01-11] MEDS: ASPIRIN 81 MG TAB PO SCH (08:07)
[2017-01-11] MEDS: DOCUSATE SODIUM 100 MG CAP PO SCH ×2 (08:07→20:15)
[2017-01-11] MEDS: ISOSORBIDE DINITRATE (SA) 40 MG TAB PO SCH ×3 (08:07→20:18)
[2017-01-11] MEDS: AMLODIPINE 5 MG TAB PO SCH ×2 (08:08→20:16)
[2017-01-11 08:21] VITALS: BP 158/67; PULSE 66; RESP 18
--- NOTE | 2017-01-11 09:53 | CONS ---
Date/Time of Note Date/Time of Note DATE: 01/11/17 TIME: 09:50 Consult Date/Type/Reason Admit Date/Time Jan 06, 2017 at 22:35 Objective Vital Signs Date Time Temp Pulse Resp B/P Pulse Ox O2 Delivery O2 Flow Rate FiO2 01/11/17 08:21 98.0 66 18 158/67 98 01/11/17 07:45 Room Air 01/10/17 17:42 2.0 Intake and Output 01/10/17 01/10/17 01/11/17 15:00 23:00 07:00 Intake Total 750 ml 1530 ml 300 ml Output Total 782 ml Balance 750 ml 748 ml 300 ml Results/Medications Result Diagram: 01/10/1718 01/10/17 0618 Results 24 hrs Laboratory Tests Test 01/10/17 11:46 01/10/17 16:45 01/10/17 21:01 01/11/17 01:18 Bedside Glucose 93 190 85 131 Test 01/11/17 07:11 Bedside Glucose 105 Medications Current Medications Docusate Sodium (Colace) 100 mg BID PO Last administered on 01/10/17 20:39; Admin Dose 100 MG; Start 01/07/17 at 09:00 Senna (Senokot) 1 tab HS PO Last administered on 01/10/17 20:38; Admin Dose 1 TAB; Start 01/07/17 at 21:00 Magnesium Hydroxide (Milk Of Mag) 30 ml BID PRN PO CONSTIPATION; Start at 23:30 Lactulose (Enulose) 20 gm DAILY PRN PO CONSTIPATION; Start 01/06/17 at 23:30 Bisacodyl (Dulcolax Supp) 10 mg DAILY PRN [place] CONSTIPATION; Start 01/06/17 at 23 :30 Metoprolol Tartrate (Lopressor) 25 mg BID PO Last administered on 01/11/17 08: 07; Admin Dose 25 MG; Start 01/07/17 at 09:00 Aspirin (Aspirin) 81 mg DAILY PO Last administered on 01/11/17 08:07; Admin Dose 81 MG; Start 01/07/17 at 09:00 Pantoprazole (Protonix Tab) 40 mg DAILY@06 PO Last administered on 01/11/17 06: 12; Admin Dose 40 MG; Start 01/07/17 at 06:00 Ondansetron HCl (Zofran Inj) 4 mg Q4H PRN IV NAUSEA AND/OR VOMITING; Start 01/07 at 00:00 Acetaminophen (Tylenol Tab) 650 mg Q6H PRN PO PAIN AND OR ELEVATED TEMP Last administered on 01/09/17 20:06; Admin Dose 650 MG; Start 01/07/17 at 00:00 Isosorbide Dinitrate (Isordil (Sa)) 20 mg TID PO Last administered on 01/11/17 08:07; Admin Dose 20 MG; Start 01/07/17 at 09:00 Amlodipine Besylate (Norvasc) 5 mg BID PO Last administered on 01/11/17 08:08; Admin Dose 5 MG; Start 01/07/17 at 09:00 Lorazepam (Ativan) 1 mg Q12 PRN PO AGITATION; Start 01/07/17 at 00:00 Lorazepam (Ativan) 0.5 mg Q4 PRN IV ANXIETY; Start 01/07/17 at 00:00 Hydralazine HCl (Apresoline) 50 mg TID PO Last administered on 01/11/17 08:08; Admin Dose 50 MG; Start 01/07/17 at 09:00 Insulin Detemir (Levemir) 6 unit DAILY@20 SC Last administered on 01/10/17 21: 42; Admin Dose 6 UNIT; Start 01/07/17 at 20:00 Guaifenesin/ Dextromethorphan (Robitussin Dm Liquid Cup) 10 ml Q4H PRN PO COUGH ; Start 01/07/17 at 00:00 Olanzapine (Zyprexa) 5 mg DAILY PO Last administered on 01/11/17 08:07; Admin Dose 5 MG; Start 01/07/17 at 09:00 Miscellaneous Information 1 ea NOTE XX ; Start 01/07/17 at 01:00 Glucose (Glutose) 15 gm Q15M PRN PO DECREASED GLUCOSE; Start 01/07/17 at 01:00 Glucose (Glutose) 22.5 gm Q15M PRN PO DECREASED GLUCOSE; Start 01/07/17 at 01:00 Dextrose (D50w Syringe) 25 ml Q15M PRN IV DECREASED GLUCOSE; Start 01/07/17 at 01:00 Dextrose (D50w Syringe) 50 ml Q15M PRN IV DECREASED GLUCOSE; Start 01/07/17 at 01:00 Glucagon (Glucagen) 1 mg Q15M PRN IM DECREASED GLUCOSE; Start 01/07/17 at 01:00 Glucose (Glutose) 15 gm Q15M PRN BUCCAL DECREASED GLUCOSE; Start 01/07/17 at 01: 00 Diagnostic Test (Pha) (Accucheck) 1 ea 02 XX Last administered on 01/08/17 02: 30; Admin Dose 1 EA; Start 01/07/17 at 02:00 Enoxaparin Sodium (Lovenox) 30 mg DAILY SC Last administered on 01/11/17 08:05 ; Admin Dose 30 MG; Start 01/09/17 at 09:00 Zolpidem Tartrate (Ambien) 5 mg HS PRN PO INSOMNIA Last administered on 20:41; Admin Dose 5 MG; Start 01/08/17 at 12:00 Acetaminophen/ Hydrocodone Bitart ([place] (5/325)) 1 tab Q6H PRN PO PAIN Last administered on 01/09/17 12:31; Admin Dose 1 TAB; Start 01/09/17 at 11:00 Assessment/Plan Chief Complaint/Hosp Course 1. Acute respiratory failure secondary to chronic obstructive pulmonary disease exacerbation, pneumonia. The patient is clinically improving. Continue supplemental oxygen. The patient is status post antibiotics. 2. Nonoliguric acute kidney injury on top of chronic kidney disease stage IV. Etiology is secondary to hemodynamics, sepsis. Renal function is near baseline. Continue current treatment plan, supportive care, renally dose all meds. 3. Urinary tract infection. The patient has completed antibiotic course. 4. Left foot pain. The patient's x-ray shows no acute fracture. The patient has an elevated uric acid level, questionable gout. We will continue to monitor. If pain continues we will give colchicine. 5. Acute diastolic heart failure. Continue medical management. 6. Hypertension. Continue current blood pressure regimen. 7. Diabetes. Continue current insulin regimen. 8. Anemia. Continue to monitor hemoglobin and hematocrit levels. 9. Dementia. Continue Zyprexa. 10. Gastrointestinal and deep venous thrombosis prophylaxis. Continue proton pump inhibitor and Lovenox. 11. Hypernatremia. We will encourage free water intake 300 mL q. shift. Problems: ADY SUN MD Jan 11, 2017 09:53
[2017-01-11 12:11] VITALS: BP 132/61; PULSE 58; RESP 18
[2017-01-11 19:39] VITALS: BP 144/65; RESP 17
[2017-01-11] MEDS: SENNA TAB PO SCH (20:15)
[2017-01-11] MEDS: ZOLPIDEM 5 MG TAB PO PRN (20:16)
[2017-01-11] MEDS: INSULIN DETEMIR [LEVEMIR] 3ML CART SC SCH (20:27)
[2017-01-12] MEDS: ACCUCHECK AT 2AM (Patients on SS coverage) XX SCH (02:37)
[2017-01-12] MEDS: PANTOPRAZOLE (EC) 40 MG TAB PO SCH (06:27)
[2017-01-12 07:30] VITALS: BP 147/64; RESP 20
[2017-01-12] MEDS: ASPIRIN 81 MG TAB PO SCH (08:19)
[2017-01-12] MEDS: ISOSORBIDE DINITRATE (SA) 40 MG TAB PO SCH ×3 (08:19→21:30)
[2017-01-12] MEDS: HYDROCODONE/APAP (5/325) TAB PO PRN (08:19)
[2017-01-12] MEDS: DOCUSATE SODIUM 100 MG CAP PO SCH ×2 (08:20→21:29)
[2017-01-12] MEDS: OLANZAPINE 5 MG TAB PO SCH (08:20)
[2017-01-12] MEDS: AMLODIPINE 5 MG TAB PO SCH ×2 (08:20→21:29)
[2017-01-12] MEDS: ENOXAPARIN 30 MG/0.3 ML SYG SC SCH (08:23)
[2017-01-12] MEDS: Insulin NOVOLOG SS MILD Algorithm (SS with meals and bedtime) SC SCH ×4 (08:24→21:33)
[2017-01-12] MEDS: METOPROLOL 25 MG TAB PO SCH ×2 (09:00→21:30)
--- NOTE | 2017-01-12 09:30 | PN ---
DATE: 01/12/2017 SUBJECTIVE: The patient is stable, no acute events overnight. No fevers, chills, nausea, vomiting, no shortness breath. OBJECTIVE: VITAL SIGNS: Blood pressure is 147/64, respirations 20, pulse 60, temperature 98.3. HEENT: Head is normocephalic. NECK: Supple. HEART: Regular rate. LUNGS: Show diminished breath sounds at base. ABDOMEN: Soft, nontender to palpation, no rebound or guarding. EXTREMITIES: Negative for clubbing, cyanosis, no edema. DERMATOLOGIC: No rashes. MUSCULOSKELETAL: No joint effusions. NEUROLOGIC: No change in exam. MEDICATIONS: The patient's medications have been reviewed. LABORATORY DATA: Has been reviewed. No new labs. ASSESSMENT AND PLAN: 1. Acute respiratory failure secondary to chronic obstructive pulmonary disease exacerbation and pn eumonia. The patient is clinically improving. Continue supplemental oxygen. Patient is status pos t antibiotics. 2. Nonoliguric acute kidney injury on top of chronic kidney disease stage IV. Etiology secondary t o hemodynamics. Renal function has been stable. Continue supportive care, renally dose medications , avoid nephrotoxins. 3. Left foot pain, improved. Continue to monitor. 4. Acute diastolic heart failure. Continue medical management. 5. Hypertension. Continue current blood pressure regimen. 6. Diabetes. Continue current insulin regimen. 7. Anemia. Continue to monitor hemoglobin and hematocrit levels. 8. Dementia with psychosis. Continue Zyprexa. 9. Hypernatremia. Continue to encourage free water intake. 10. Status post urinary tract infection. 11. Gastrointestinal and deep venous thrombosis prophylaxis. Continue proton pump inhibitor and Lo venox. Dictated By: MIKE ROSA/MADAN Conf#: [id number] DID#: [id number]
--- NOTE | 2017-01-12 11:47 | CONS ---
Date/Time of Note Date/Time of Note DATE: 01/12/17 TIME: 11:46 Consult Date/Type/Reason Admit Date/Time Jan 06, 2017 at 22:35 Subjective No new complaints Objective Vital Signs Date Time Temp Pulse Resp B/P Pulse Ox O2 Delivery O2 Flow Rate FiO2 01/12/17 07:30 98.3 60 20 147/64 96 01/11/17 12:11 Room Air 01/10/17 17:42 2.0 Intake and Output 01/11/17 01/11/17 01/12/17 15:00 23:00 07:00 Intake Total 650 ml 200 ml 700 ml Output Total 550 ml 150 ml Balance 100 ml 50 ml 700 ml INTERDISCIPLINARY TEAM CONFERENCE BOWEL- Cont BLADDER-Cont SKIN- intact OT- DRESSING-min BATHING-min TOILETING-min PT- BED MOBILITY-cga TRANSFERS-cga AMBULATION-cga 150 feet SPEECH- COGNITION-mod A/P- Interdisciplinary team conference held today. Please see interdisciplinary sheet. Working toward d.c. on 01/16 with post discharge follow up of physical therapy, occupational therapy. Results/Medications Result Diagram: 01/10/1718 01/10/17 0618 Results 24 hrs Laboratory Tests Test 01/11/17 16:45 01/11/17 20:08 01/12/17 02:24 01/12/17 07:36 Bedside Glucose 175 248 H 196 143 Test 01/12/17 11:27 Bedside Glucose 224 H Medications Current Medications Docusate Sodium (Colace) 100 mg BID PO Last administered on 01/12/17 08:20; Admin Dose 100 MG; Start 01/07/17 at 09:00 Senna (Senokot) 1 tab HS PO Last administered on 01/11/17 20:15; Admin Dose 1 TAB; Start 01/07/17 at 21:00 Magnesium Hydroxide (Milk Of Mag) 30 ml BID PRN PO CONSTIPATION; Start at 23:30 Lactulose (Enulose) 20 gm DAILY PRN PO CONSTIPATION; Start 01/06/17 at 23:30 Bisacodyl (Dulcolax Supp) 10 mg DAILY PRN [place] CONSTIPATION; Start 01/06/17 at 23 :30 Metoprolol Tartrate (Lopressor) 25 mg BID PO Last administered on 01/11/17 20: 15; Admin Dose 25 MG; Start 01/07/17 at 09:00 Aspirin (Aspirin) 81 mg DAILY PO Last administered on 01/12/17 08:19; Admin Dose 81 MG; Start 01/07/17 at 09:00 Pantoprazole (Protonix Tab) 40 mg DAILY@06 PO Last administered on 01/12/17 06: 27; Admin Dose 40 MG; Start 01/07/17 at 06:00 Ondansetron HCl (Zofran Inj) 4 mg Q4H PRN IV NAUSEA AND/OR VOMITING; Start 01/07 at 00:00 Acetaminophen (Tylenol Tab) 650 mg Q6H PRN PO PAIN AND OR ELEVATED TEMP Last administered on 01/09/17 20:06; Admin Dose 650 MG; Start 01/07/17 at 00:00 Isosorbide Dinitrate (Isordil (Sa)) 20 mg TID PO Last administered on 01/12/17 08:19; Admin Dose 20 MG; Start 01/07/17 at 09:00 Amlodipine Besylate (Norvasc) 5 mg BID PO Last administered on 01/12/17 08:20; Admin Dose 5 MG; Start 01/07/17 at 09:00 Lorazepam (Ativan) 1 mg Q12 PRN PO AGITATION; Start 01/07/17 at 00:00 Lorazepam (Ativan) 0.5 mg Q4 PRN IV ANXIETY; Start 01/07/17 at 00:00 Hydralazine HCl (Apresoline) 50 mg TID PO Last administered on 01/12/17 08:20; Admin Dose 50 MG; Start 01/07/17 at 09:00 Insulin Detemir (Levemir) 6 unit DAILY@20 SC Last administered on 01/11/17 20: 27; Admin Dose 6 UNIT; Start 01/07/17 at 20:00 Guaifenesin/ Dextromethorphan (Robitussin Dm Liquid Cup) 10 ml Q4H PRN PO COUGH ; Start 01/07/17 at 00:00 Olanzapine (Zyprexa) 5 mg DAILY PO Last administered on 01/12/17 08:20; Admin Dose 5 MG; Start 01/07/17 at 09:00 Miscellaneous Information 1 ea NOTE XX ; Start 01/07/17 at 01:00 Glucose (Glutose) 15 gm Q15M PRN PO DECREASED GLUCOSE; Start 01/07/17 at 01:00 Glucose (Glutose) 22.5 gm Q15M PRN PO DECREASED GLUCOSE; Start 01/07/17 at 01:00 Dextrose (D50w Syringe) 25 ml Q15M PRN IV DECREASED GLUCOSE; Start 01/07/17 at 01:00 Dextrose (D50w Syringe) 50 ml Q15M PRN IV DECREASED GLUCOSE; Start 01/07/17 at 01:00 Glucagon (Glucagen) 1 mg Q15M PRN IM DECREASED GLUCOSE; Start 01/07/17 at 01:00 Glucose (Glutose) 15 gm Q15M PRN BUCCAL DECREASED GLUCOSE; Start 01/07/17 at 01: 00 Diagnostic Test (Pha) (Accucheck) 1 ea 02 XX Last administered on 01/12/17 02: 37; Admin Dose 1 EA; Start 01/07/17 at 02:00 Enoxaparin Sodium (Lovenox) 30 mg DAILY SC Last administered on 01/12/17 08:23 ; Admin Dose 30 MG; Start 01/09/17 at 09:00 Zolpidem Tartrate (Ambien) 5 mg HS PRN PO INSOMNIA Last administered on 20:16; Admin Dose 5 MG; Start 01/08/17 at 12:00 Acetaminophen/ Hydrocodone Bitart ([place] (5/325)) 1 tab Q6H PRN PO PAIN Last administered on 01/12/17 08:19; Admin Dose 1 TAB; Start 01/09/17 at 11:00 ADRIANNE BURDEN MD Jan 12, 2017 11:47
[2017-01-12 19:49] VITALS: BP 139/63; PULSE 67; RESP 16
[2017-01-12] MEDS: ZOLPIDEM 5 MG TAB PO PRN (21:29)
[2017-01-12] MEDS: SENNA TAB PO SCH (21:29)
[2017-01-12] MEDS: INSULIN DETEMIR [LEVEMIR] 3ML CART SC SCH (21:32)
[2017-01-13] MEDS: ACCUCHECK AT 2AM (Patients on SS coverage) XX SCH (02:00)
[2017-01-13] MEDS: PANTOPRAZOLE (EC) 40 MG TAB PO SCH (05:39)
[2017-01-13 06:27] LABS: ADD SCAN DIFF NO
[2017-01-13 06:39] LABS: ABNORMAL IP MESSAGE 1; EOSINOPHILS # 0.3 10^3/ul (0.0-0.5); HEMATOCRIT 29.2 % (37.0-47.0); LYMPHOCYTES # 0.8 10^3/ul (0.8-2.9); LYMPHOCYTES % 20.1 % (15.0-51.0); MEAN CORPUSCULAR HEMOGLOBIN 23.7 pg (29.0-33.0); MEAN CORPUSCULAR HGB CONC 30.8 g/dl (32.0-37.0); MEAN PLATELET VOLUME 11.6 fl (7.4-10.4); MONOCYTE # 0.3 10^3/ul (0.3-0.9); MONOCYTES % 8.2 % (0.0-11.0); NEUTROPHIL # 2.7 10^3/ul (1.6-7.5); NEUTROPHILS % 65.2 % (39.0-77.0); PLATELET COUNT 177 10^3/UL (140-415); RED BLOOD COUNT 3.79 10^6/ul (4.20-5.40); RED CELL DISTRIBUTION WIDTH 22.3 % (11.5-14.5); WHITE BLOOD COUNT 4.2 10^3/ul (4.8-10.8)
[2017-01-13 06:59] LABS: POTASSIUM 4.2 mmol/L (3.5-5.1)
[2017-01-13 07:01] LABS: CREATININE 1.87 mg/dl (0.44-1.00)
[2017-01-13 07:02] LABS: CALCIUM 7.8 mg/dl (8.4-10.2); MAGNESIUM 2.2 mg/dl (1.7-2.5); PHOSPHORUS 4.8 mg/dl (2.5-4.9)
[2017-01-13 08:28] VITALS: BP 135/65; RESP 18
[2017-01-13] MEDS: ASPIRIN 81 MG TAB PO SCH (08:31)
[2017-01-13] MEDS: AMLODIPINE 5 MG TAB PO SCH ×2 (08:31→20:07)
[2017-01-13] MEDS: DOCUSATE SODIUM 100 MG CAP PO SCH ×2 (08:31→20:07)
[2017-01-13] MEDS: ISOSORBIDE DINITRATE (SA) 40 MG TAB PO SCH ×3 (08:31→20:08)
[2017-01-13] MEDS: METOPROLOL 25 MG TAB PO SCH ×2 (08:32→20:08)
[2017-01-13] MEDS: OLANZAPINE 5 MG TAB PO SCH (08:32)
[2017-01-13] MEDS: ENOXAPARIN 30 MG/0.3 ML SYG SC SCH (08:34)
[2017-01-13] MEDS: Insulin NOVOLOG SS MILD Algorithm (SS with meals and bedtime) SC SCH ×4 (08:35→20:11)
--- NOTE | 2017-01-13 09:00 | PN ---
DATE: 01/13/2017 SUBJECTIVE: The patient is stable, no acute events overnight. No fevers, chills, nausea, vomiting. OBJECTIVE: VITAL SIGNS: Blood pressure 135/65, respirations 18, pulse 69, temperature 98.5. HEENT: Head is normocephalic. NECK: Supple. HEART: Regular rate. LUNGS: Show diminished breath sounds at the base. ABDOMEN: Soft, nontender to palpation. No rebound or guarding. EXTREMITIES: Negative for clubbing, cyanosis, no edema. DERMATOLOGIC: No rashes. MUSCULOSKELETAL: No joint effusions. NEUROLOGIC: No change in exam. MEDICATIONS: The patient's medications have been reviewed. LABORATORY DATA: Showed sodium 144, potassium 4.2, chloride 113, BUN 15, creatinine 1.87. White co unt 4.0, hemoglobin 9.0, hematocrit 29.2, platelet count is 177. ASSESSMENT AND PLAN: 1. Acute respiratory failure secondary to chronic obstructive pulmonary disease exacerbation, pneum onia. The patient is clinically improving. Continue current treatment plan. Continue supplemental oxygen. 2. Oliguric acute kidney injury on top of chronic kidney disease stage IV. Etiology is hemodynamic s. Renal function has slowly been improving. Continue supportive care, renally dose meds, avoid ne phrotoxins. 3. Acute diastolic heart failure. Patient is currently euvolemic. Continue medical management. 4. Hypertension. Continue current blood pressure regimen. 5. Diabetes. Continue current insulin regimen. We will adjust Lantus as needed. 6. Anemia. Continue to monitor hemoglobin and hematocrit levels. 7. Dementia with psychosis. Continue Zyprexa. 8. Hyponatremia, improved. Continue free water intake. 9. Status post urinary tract infection. 10. Gastrointestinal and deep venous thrombosis prophylaxis. Continue proton pump inhibitor and Lo venox. Dictated By: MIKE ROSA/NTS Conf#: [id number] DID#: [id number]
[2017-01-13] MEDS: HYDROCODONE/APAP (5/325) TAB PO PRN (12:45)
--- NOTE | 2017-01-13 18:59 | PN ---
DATE: 01/13/2017 SUBJECTIVE: Patient seen. Patient overall in a good mood, with no complaints. I appreciate Dr. Ra guo's input and coverage during my vacation. The patient's kidney function also is improving. I appreciate nephrology input. PHYSICAL EXAMINATION VITAL SIGNS: Temperature is 98.5, pulse 69, respirations 18, blood pressure 125/65, saturation 96% on room air. GENERAL: No acute distress. HEENT: Normocephalic, atraumatic. The patient is pale. HEENT: Temporal wasting. CARDIOVASCULAR: Positive S1 and S2. Regular rate. LUNGS: Mild rhonchi at the bases. ABDOMEN: Soft, nontender. EXTREMITIES: No clubbing, cyanosis, or edema. LABORATORY DATA: White count is normal at 4.2, hemoglobin went down to 9, hematocrit 29, platelet c ount 177, neutrophils 65%, lymphocytes 20%. Chemistry: Sodium is 144, potassium 4.2, chloride 113, bicarbonate 19, BUN is 50, creatinine 1.87, glucose of 233. Last glucose level of 261, 204, and 16 7. UA on admission was negative. Cultures including urine culture shows mixed gram-positive organi sm, only 10,000 to 20,000. MRSA of the nares was negative. MEDICATIONS: Patient's medications reviewed, include the followin. [place] 5/325 q.6h. p.r.n. 2. Lovenox 30 mg subq every day. 3. Ambien 5 at bedtime p.r.n. 4. Senna 1 tab at bedtime. 5. Levemir 6 units daily. 6. Colace 100 b.i.d. 7. Lopressor 25 b.i.d. 8. Aspirin 81 mg daily. 9. Isordil 20 mg t.i.d. 10. Norvasc 5 mg b.i.d. 11. Hydralazine 50 t.i.d. 12. Zyprexa 5 mg daily. 13. Insulin aspart per sliding scale. 14. Protonix 40 mg daily. 15. Accu-Cheks q.a.c. and nightly, hypoglycemia protocol. 16. Zofran p.r.n. 17. Tylenol p.r.n. 18. Lorazepam p.r.n. 19. Robitussin p.r.n. 20. Milk of Magnesia p.r.n. 21. Lactulose. 22. Dulcolax p.r.n. Foot x-ray on 01/26/2017. This was of the left foot, shows old healed fracture of the distal neck t o the third metatarsal. Otherwise, normal of the left foot. There is diffuse osteopenia as well. ASSESSMENT AND PLAN: This is a 81-year-old [place] female with history of chronic obstructive pulm onary disease, who recently presented with chronic obstructive pulmonary disease exacerbation and pn eumonia, more stabilized, but overall with significant dyspnea on disability with generalized weakne ss. 1. Generalized weakness with deconditioning, status post recent hospitalization. Continue physical therapy, occupational therapy, help with activities of daily living with anticipation hopefully to go home with home health. 2. Status post pneumonia, status post antibiotic management. 3. Continue deep vein thrombosis prophylaxis and gastrointestinal prophylaxis. 4. Diabetes mellitus. Will increase Levemir to 8 units daily. 5. Hypertension. Continue all medications. Continue deep venous thrombosis prophylaxis as well. 6. Continue gastrointestinal prophylaxis with Protonix. 7. Diastolic dysfunction, heart failure, stable. No evidence of fluid overload state. 8. Recent psychosis, which may be induced likely secondary to steroid use for treatment of chronic obstructive pulmonary disease, now off steroids. Continue Zyprexa. 9. Left foot pain. Reviewed x-rays. 10. Unremarkable urinalysis. 11. Anemia. Continue to monitor hematocrit and hemoglobin. Currently no need for transfusion. 12. I reviewed the patient's colonoscopy, biopsy done in February 2014, with no significant pathology. We will follow. Dictated By: DYLON HULL/MADAN Conf#: [id number] DID#: [id number]
[2017-01-13 19:37] VITALS: BP 152/68; RESP 20
[2017-01-13] MEDS: SENNA TAB PO SCH (20:07)
[2017-01-13] MEDS: ZOLPIDEM 5 MG TAB PO PRN (20:09)
[2017-01-13] MEDS: INSULIN DETEMIR [LEVEMIR] 3ML CART SC SCH (20:11)
[2017-01-14] MEDS: ACCUCHECK AT 2AM (Patients on SS coverage) XX SCH (02:00)
[2017-01-14] MEDS: PANTOPRAZOLE (EC) 40 MG TAB PO SCH (05:28)
[2017-01-14 05:35] VITALS: BP 131/73; PULSE 63
[2017-01-14 07:57] VITALS: BP 150/88; RESP 18
[2017-01-14] MEDS: ENOXAPARIN 30 MG/0.3 ML SYG SC SCH (08:25)
[2017-01-14] MEDS: Insulin NOVOLOG SS MILD Algorithm (SS with meals and bedtime) SC SCH ×4 (08:25→20:52)
[2017-01-14] MEDS: ASPIRIN 81 MG TAB PO SCH (08:26)
[2017-01-14] MEDS: OLANZAPINE 5 MG TAB PO SCH (08:26)
[2017-01-14] MEDS: ISOSORBIDE DINITRATE (SA) 40 MG TAB PO SCH ×3 (08:26→20:44)
[2017-01-14] MEDS: DOCUSATE SODIUM 100 MG CAP PO SCH ×2 (08:27→20:42)
[2017-01-14] MEDS: AMLODIPINE 5 MG TAB PO SCH ×2 (08:27→20:43)
[2017-01-14] MEDS: METOPROLOL 25 MG TAB PO SCH ×2 (08:27→20:43)
--- NOTE | 2017-01-14 09:22 | PN ---
DATE: 01/14/2017 SUBJECTIVE: The patient is stable, no acute events overnight. No fevers, chills, nausea, vomiting. No shortness of breath. OBJECTIVE: VITAL SIGNS: Blood pressure is 150/88, respirations 18, pulse 67, temperature 98.2. HEENT: Head is normocephalic. NECK: Supple. HEART: Regular rate. LUNGS: Show diminished breath sounds at the bases. ABDOMEN: Soft, nontender to palpation. No rebound or guarding. EXTREMITIES: Negative for clubbing, cyanosis. No edema. DERMATOLOGIC: No rashes. MUSCULOSKELETAL: No joint effusions. NEUROLOGIC: No change in exam. MEDICATIONS: The patient's medications have been reviewed. LABORATORY DATA: Has been reviewed. No new labs. ASSESSMENT AND PLAN: 1. Nonoliguric acute kidney injury on top of chronic kidney disease stage IV. Etiology of acute ki dney injury is secondary to hemodynamics. Renal function has slowly been improving. Continue suppo rtive care, renally dose all medications, avoid nephrotoxins. 2. Acute diastolic heart failure. The patient is currently euvolemic. Continue medical management . 3. Hypertension. Continue current blood pressure regimen. 4. Diabetes. Continue current insulin regimen. 5. Anemia. Continue to monitor hemoglobin and hematocrit levels. 6. Hypernatremia, improved. 7. Status post urinary tract infection. 8. Status post respiratory failure. 9. Gastrointestinal and deep venous thrombosis prophylaxis. Continue proton pump inhibitor and [place] enox. Dictated By: MIKE ROSA/MADAN Conf#: [id number] DID#: [id number]
--- NOTE | 2017-01-14 12:29 | CONS ---
Date/Time of Note Date/Time of Note DATE: 01/14/17 TIME: 12:28 Consult Date/Type/Reason Admit Date/Time Jan 06, 2017 at 22:35 Subjective in good spirits Objective pulm-cta sba ambulation Vital Signs Date Time Temp Pulse Resp B/P Pulse Ox O2 Delivery O2 Flow Rate FiO2 01/14/17 07:57 98.2 67 18 150/88 94 01/12/17 19:49 Room Air 01/10/17 17:42 2.0 Intake and Output 01/13/17 01/13/17 01/14/17 15:00 23:00 07:00 Intake Total 720 ml 1080 ml 400 ml Output Total 150 ml 500 ml Balance 570 ml 1080 ml -100 ml Results/Medications Result Diagram: 01/13/17 0559 01/13/17 0559 Results 24 hrs Laboratory Tests Test 01/13/17 17:00 01/13/17 20:05 01/14/17 02:26 01/14/17 07:45 Bedside Glucose 261 H 219 149 153 Test 01/14/17 12:00 Bedside Glucose 107 Medications Current Medications Docusate Sodium (Colace) 100 mg BID PO Last administered on 01/14/17 08:27; Admin Dose 100 MG; Start 01/07/17 at 09:00 Senna (Senokot) 1 tab HS PO Last administered on 01/13/17 20:07; Admin Dose 1 TAB; Start 01/07/17 at 21:00 Magnesium Hydroxide (Milk Of Mag) 30 ml BID PRN PO CONSTIPATION; Start at 23:30 Lactulose (Enulose) 20 gm DAILY PRN PO CONSTIPATION; Start 01/06/17 at 23:30 Bisacodyl (Dulcolax Supp) 10 mg DAILY PRN [place] CONSTIPATION; Start 01/06/17 at 23 :30 Metoprolol Tartrate (Lopressor) 25 mg BID PO Last administered on 01/14/17 08: 27; Admin Dose 25 MG; Start 01/07/17 at 09:00 Aspirin (Aspirin) 81 mg DAILY PO Last administered on 01/14/17 08:26; Admin Dose 81 MG; Start 01/07/17 at 09:00 Pantoprazole (Protonix Tab) 40 mg DAILY@06 PO Last administered on 01/14/17 05: 28; Admin Dose 40 MG; Start 01/07/17 at 06:00 Ondansetron HCl (Zofran Inj) 4 mg Q4H PRN IV NAUSEA AND/OR VOMITING; Start 01/07 at 00:00 Acetaminophen (Tylenol Tab) 650 mg Q6H PRN PO PAIN AND OR ELEVATED TEMP Last administered on 01/09/17 20:06; Admin Dose 650 MG; Start 01/07/17 at 00:00 Isosorbide Dinitrate (Isordil (Sa)) 20 mg TID PO Last administered on 01/14/17 08:26; Admin Dose 20 MG; Start 01/07/17 at 09:00 Amlodipine Besylate (Norvasc) 5 mg BID PO Last administered on 01/14/17 08:27; Admin Dose 5 MG; Start 01/07/17 at 09:00 Lorazepam (Ativan) 1 mg Q12 PRN PO AGITATION; Start 01/07/17 at 00:00 Lorazepam (Ativan) 0.5 mg Q4 PRN IV ANXIETY; Start 01/07/17 at 00:00 Hydralazine HCl (Apresoline) 50 mg TID PO Last administered on 01/14/17 08:27; Admin Dose 50 MG; Start 01/07/17 at 09:00 Insulin Detemir (Levemir) 6 unit DAILY@20 SC Last administered on 01/13/17 20: 11; Admin Dose 6 UNIT; Start 01/07/17 at 20:00 Guaifenesin/ Dextromethorphan (Robitussin Dm Liquid Cup) 10 ml Q4H PRN PO COUGH ; Start 01/07/17 at 00:00 Olanzapine (Zyprexa) 5 mg DAILY PO Last administered on 01/14/17 08:26; Admin Dose 5 MG; Start 01/07/17 at 09:00 Miscellaneous Information 1 ea NOTE XX ; Start 01/07/17 at 01:00 Glucose (Glutose) 15 gm Q15M PRN PO DECREASED GLUCOSE; Start 01/07/17 at 01:00 Glucose (Glutose) 22.5 gm Q15M PRN PO DECREASED GLUCOSE; Start 01/07/17 at 01:00 Dextrose (D50w Syringe) 25 ml Q15M PRN IV DECREASED GLUCOSE; Start 3/1/17 at 01:00 Dextrose (D50w Syringe) 50 ml Q15M PRN IV DECREASED GLUCOSE; Start 01/07/17 at 01:00 Glucagon (Glucagen) 1 mg Q15M PRN IM DECREASED GLUCOSE; Start 01/07/17 at 01:00 Glucose (Glutose) 15 gm Q15M PRN BUCCAL DECREASED GLUCOSE; Start 01/07/17 at 01: 00 Diagnostic Test (Pha) (Accucheck) 1 ea 02 XX Last administered on 01/12/17 02: 37; Admin Dose 1 EA; Start 01/07/17 at 02:00 Enoxaparin Sodium (Lovenox) 30 mg DAILY SC Last administered on 01/14/17 08:25 ; Admin Dose 30 MG; Start 01/09/17 at 09:00 Zolpidem Tartrate (Ambien) 5 mg HS PRN PO INSOMNIA Last administered on 20:09; Admin Dose 5 MG; Start 01/08/17 at 12:00 Acetaminophen/ Hydrocodone Bitart ([place] (5/325)) 1 tab Q6H PRN PO PAIN Last administered on 01/13/17 12:45; Admin Dose 1 TAB; Start 01/09/17 at 11:00 Assessment/Plan Additional Assessment/Plan Rehab- Toxic metabolic encephalopathy. Continue rehab therapies Status post acute respiratory failure chronic pulmonary disease exacerbation. Diastolic heart failure. Diabetes mellitus type 2-monitor Hypertension. Acute kidney injury. Urinary tract infection. ADRIANNE BURDEN MD Jan 14, 2017 12:29
[2017-01-14 12:49] VITALS: BP 152/70
--- NOTE | 2017-01-14 16:10 | PN ---
DATE: 01/14/2017 SUBJECTIVE: The patient is seen with currently no complaints, participating with physical therapy. Anticipate discharge in two days. PHYSICAL EXAMINATION: VITAL SIGNS: Patient is afebrile. Temperature 98.2, pulse 67, respirations 18, blood pressure 152/7 0, saturation 94%. GENERAL: No acute distress. HEENT: Normocephalic, atraumatic. The patient is pale. HEENT: Temporal wasting. Oxygen in place. CARDIOVASCULAR: Positive S1 and S2. LUNGS: Decreased bilaterally. ABDOMEN: Soft, nontender. EXTREMITIES: No clubbing, cyanosis, or edema. LABORATORY DATA: No new labs today. Labs yesterday were all reviewed. BUN and creatinine was 50/1 .87 with a hemoglobin of 9 and hematocrit of 29. MEDICATIONS: Include: 1. [place] p.r.n. 2. Lovenox 30 mg subQ every day. 3. Ambien 5 mg at bedtime. 4. Senna 1 tab at bedtime. 5. Levemir 6 units daily. 6. Colace 100 b.i.d. 7. Lopressor 25 b.i.d. 8. Aspirin 81 mg daily. 9. Isordil 20 mg t.i.d. 10. Norvasc 5 mg b.i.d. 11. Hydralazine 50 t.i.d. 12. Zyprexa 5 mg daily. 13. Insulin per sliding scale. 14. Protonix 40 mg daily. 15. Accu-Chek q.a.c. and every bedtime. 16. Hyperglycemia protocol. 17. Zofran p.r.n. 18. Tylenol p.r.n. 19. Ativan p.r.n. 20. Robitussin p.r.n. 21. Milk of magnesia. 22. Lactulose. 23. Dulcolax p.r.n. ASSESSMENT AND PLAN: This is a 81-year-old [place] female with history of COPD, who recently prese nted with COPD exacerbation, pneumonia and encephalopathy, general debilitated state. 1. Generalized weakness and deconditioning, status post recent hospitalization complicated by confu robert, encephalopathy. Continue physical therapy, occupational therapy, help with activities of maria g y living. The patient continues to improve. 2. Status post pneumonia, status post antibiotic management. 3. Continue deep vein thrombosis prophylaxis on Lovenox. 4. Diabetes mellitus. Glucose levels are better now in the low 100s. Continue Levemir 6 units at bedtime. 5. Hypertension, better controlled. Continue current regimen. 6. Continue Protonix for GI prophylaxis. 7. Diastolic and systolic dysfunction heart failure, compensated. No evidence of fluid overload st ate. 8. Acute renal failure, improving. Check a.m. labs. 9. Left foot pain, x-ray was reviewed, showed old healed fracture of the distal neck of the 3rd met atarsal. 10. Anemia, likely anemia of chronic disease. Monitor. We will follow. Dictated By: DYLON HULL/MADAN Conf#: [id number] DID#: [id number]
--- NOTE | 2017-01-14 19:15 | CONS ---
DATE OF ADMISSION: 01/06/2017 DATE OF CONSULTATION: 01/14/2017 TYPE OF CONSULTATION: Psychological. REFERRING PHYSICIAN: Adrianne Barone MD CONSULTING PSYCHOLOGIST: Ron Duran, PhD REASON FOR CONSULTATION: This consultation was requested by Dr. Bhumika Barone in order to evaluate the cognitive and emotional functioning of this patient related to her present medical condition. HISTORY OF PRESENT ILLNESS: The patient is a 81-year-old female. She has a past history of multipl e medical problems. The patient had acute respiratory failure and altered mental status. The patie nt was doing fairly well approximately 2 days prior to admission to the hospital. The patient was f inally cleared medically and then transferred to the acute rehabilitation unit for acute multidiscip linary rehabilitation. The patient was nervous and depressed about what was going on. The patient was confused at the time, but her thinking has cleared for the most part. The patient is motivated to get better and does want to return to her previous level of functioning. FAMILY AND SOCIAL HISTORY: The patient presently lives with her daughter. The patient reports that she wants to return there after discharge. The patient does say that she goes back and forth betwe en her different daughters. MEDICATIONS: The patient is on: 1. Zyprexa 5 mg daily. 2. Ativan 1 mg q.12h. p.r.n. and 0.5 q.4h. p.r.n. SUBSTANCE USE: The patient reports that she smoked, but stopped approximately 15 years ago. The pa karina reports that she does not drink or use other drugs. MENTAL STATUS EXAMINATION: APPEARANCE: The patient was seen in her wheelchair. She appears of average height and weight. The patient is on oxygen. The patient is right-handed. BEHAVIOR: The patient was cooperative during the consultation. The patient did attempt to answer a ll questions presented to her by the interviewer. MOOD AND AFFECT: The patient's mood appears to be somewhat nervous and depressed. The patient's af fect was slightly anxious. PERCEPTION: The patient reports no hallucinations or delusions. The patient was alert to person, p lace, situation, and time. MEMORY AND COGNITION: The patient's memory and cognition are just very slightly impaired at the pre sent time. They are not as impaired as she was in the last few days by report. The patient was abl e to say the month and the year. The patient was not exactly able to say the name of the hospital. She thought it was "[facility]." She could say who the numerical control machine machinist is , but could not say who the governor of the state, or the mayor of the the [facility] is. The patient could n ot spell "world" backwards. The patient was able to do 1 serial 7 subtraction from 100, but then co uld not go further. Given her age and her previous level of cognitive functioning, the patient is e xperiencing some mild level of cognitive dysfunction at the present time. INTELLIGENCE: Intelligence appears to fall in the average range when functioning well. INSIGHT: Fair. JUDGMENT: Fair. THOUGHT CONTENT: The patient is concerned about her present medical condition. The patient does wa nt to return to her previous level of functioning. The patient is frustrated about her present cond ition and fears that she will not be able to get better and function as she was before. DISCUSSION: The patient can likely benefit from some cognitive/behavioral psychotherapy while she i s on the unit. This psychotherapy would focus on her underlying level of frustration and on her con fusion that is beginning to clear. DIAGNOSTIC IMPRESSION: 1. 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 2. F06.8, cognitive disorder, not otherwise specified. Dictated By: RON DURAN PHD MEGHAN/MADAN Conf#: [id number] DID#: [id number] CC: ADRIANNE BARONE MD;*EndCC*
[2017-01-14 20:32] VITALS: BP 145/63; RESP 18
[2017-01-14] MEDS: SENNA TAB PO SCH (20:42)
[2017-01-14] MEDS: ZOLPIDEM 5 MG TAB PO PRN (20:42)
[2017-01-14] MEDS: INSULIN DETEMIR [LEVEMIR] 3ML CART SC SCH (20:52)
[2017-01-15] VITALS: BP 155/62; PULSE 72
[2017-01-15] MEDS: ACCUCHECK AT 2AM (Patients on SS coverage) XX SCH (02:56)
[2017-01-15] MEDS: PANTOPRAZOLE (EC) 40 MG TAB PO SCH (05:20)
[2017-01-15] MEDS: ACETAMINOPHEN 325 MG TAB PO PRN (05:20)
[2017-01-15 07:30] VITALS: BP 155/67; RESP 20
[2017-01-15] MEDS: ENOXAPARIN 30 MG/0.3 ML SYG SC SCH (07:58)
[2017-01-15] MEDS: Insulin NOVOLOG SS MILD Algorithm (SS with meals and bedtime) SC SCH ×4 (07:58→21:45)
[2017-01-15] MEDS: OLANZAPINE 5 MG TAB PO SCH (09:13)
[2017-01-15] MEDS: DOCUSATE SODIUM 100 MG CAP PO SCH ×2 (09:15→21:34)
[2017-01-15] MEDS: METOPROLOL 25 MG TAB PO SCH ×2 (09:16→21:33)
[2017-01-15] MEDS: ASPIRIN 81 MG TAB PO SCH (09:16)
[2017-01-15] MEDS: AMLODIPINE 5 MG TAB PO SCH ×2 (09:17→21:35)
[2017-01-15] MEDS: HYDROCODONE/APAP (5/325) TAB PO PRN (09:17)
[2017-01-15] MEDS: ISOSORBIDE DINITRATE (SA) 40 MG TAB PO SCH ×3 (09:17→21:34)
--- NOTE | 2017-01-15 10:04 | PN ---
DATE: 01/15/2017 SUBJECTIVE: The patient is stable, no acute events overnight. No fevers, chills, nausea, vomiting. No shortness of breath. OBJECTIVE: VITAL SIGNS: Blood pressure is 155/60, respirations 18, pulse 62, temperature 98.4. HEENT: Head is normocephalic. NECK: Supple. HEART: Regular rate. LUNGS: Show diminished breath sounds at the bases. ABDOMEN: Soft, nontender to palpation. No rebound or guarding. EXTREMITIES: Negative for clubbing, cyanosis. No edema. DERMATOLOGIC: No rashes. MUSCULOSKELETAL: No joint effusions. NEUROLOGIC: No change in exam. MEDICATIONS: The patient's medications have been reviewed. LABORATORY DATA: Has been reviewed. No new labs. ASSESSMENT AND PLAN: 1. Nonoliguric acute kidney injury on top of chronic kidney disease stage IV. Etiology of acute ki dney injury is secondary to hemodynamics. Renal function has slowly been improving. Continue suppo rtive care, renally dose all meds, avoid nephrotoxins. 2. Acute diastolic heart failure. The patient appears euvolemic. Continue current medical managem ent. 3. Hypertension. Continue current blood pressure regimen. 4. Diabetes. Continue Accu-Cheks and sliding scale. 5. Anemia. Continue to monitor hemoglobin and hematocrit levels. 6. Hypernatremia, improved. Continue current free water intake. 7. Status post urinary tract infection. 8. Status post respiratory failure. 9. Gastrointestinal and deep venous thrombosis prophylaxis. Continue proton pump inhibitor and [place] enox. Dictated By: MIKE ROSA/MADAN Conf#: [id number] DID#: [id number]
--- NOTE | 2017-01-15 12:06 | CONS ---
Date/Time of Note Date/Time of Note DATE: 01/15/17 TIME: 12:05 Consult Date/Type/Reason Admit Date/Time Jan 06, 2017 at 22:35 Subjective comfortable Objective up for activities sba ambulation Vital Signs Date Time Temp Pulse Resp B/P Pulse Ox O2 Delivery O2 Flow Rate FiO2 01/15/17 07:30 99.0 62 20 155/67 96 01/12/17 19:49 Room Air Intake and Output 01/14/17 01/14/17 01/15/17 14:59 22:59 06:59 Intake Total 720 ml 840 ml 550 ml Output Total 350 ml 850 ml 800 ml Balance 370 ml -10 ml -250 ml Results/Medications Result Diagram: 01/13/17 0559 01/13/17 0559 Results 24 hrs Laboratory Tests Test 01/14/17 17:04 01/14/17 20:15 01/15/17 02:05 01/15/17 07:24 Bedside Glucose 244 H 210 174 172 Medications Current Medications Docusate Sodium (Colace) 100 mg BID PO Last administered on 01/15/17 09:15; Admin Dose 100 MG; Start 01/07/17 at 09:00 Senna (Senokot) 1 tab HS PO Last administered on 01/14/17 20:42; Admin Dose 1 TAB; Start 01/07/17 at 21:00 Magnesium Hydroxide (Milk Of Mag) 30 ml BID PRN PO CONSTIPATION; Start at 23:30 Lactulose (Enulose) 20 gm DAILY PRN PO CONSTIPATION; Start 01/06/17 at 23:30 Bisacodyl (Dulcolax Supp) 10 mg DAILY PRN [place] CONSTIPATION; Start 01/06/17 at 23 :30 Metoprolol Tartrate (Lopressor) 25 mg BID PO Last administered on 01/15/17 09: 16; Admin Dose 25 MG; Start 01/07/17 at 09:00 Aspirin (Aspirin) 81 mg DAILY PO Last administered on 01/15/17 09:16; Admin Dose 81 MG; Start 01/07/17 at 09:00 Pantoprazole (Protonix Tab) 40 mg DAILY@06 PO Last administered on 01/15/17 05: 20; Admin Dose 40 MG; Start 01/07/17 at 06:00 Ondansetron HCl (Zofran Inj) 4 mg Q4H PRN IV NAUSEA AND/OR VOMITING; Start 01/07 at 00:00 Acetaminophen (Tylenol Tab) 650 mg Q6H PRN PO PAIN AND OR ELEVATED TEMP Last administered on 01/15/17 05:20; Admin Dose 650 MG; Start 01/07/17 at 00:00 Isosorbide Dinitrate (Isordil (Sa)) 20 mg TID PO Last administered on 01/15/17 09:17; Admin Dose 20 MG; Start 01/07/17 at 09:00 Amlodipine Besylate (Norvasc) 5 mg BID PO Last administered on 01/15/17 09:17; Admin Dose 5 MG; Start 01/07/17 at 09:00 Lorazepam (Ativan) 1 mg Q12 PRN PO AGITATION; Start 01/07/17 at 00:00 Lorazepam (Ativan) 0.5 mg Q4 PRN IV ANXIETY; Start 01/07/17 at 00:00 Hydralazine HCl (Apresoline) 50 mg TID PO Last administered on 01/15/17 09:17; Admin Dose 50 MG; Start 01/07/17 at 09:00 Insulin Detemir (Levemir) 6 unit DAILY@20 SC Last administered on 01/14/17 20: 52; Admin Dose 6 UNIT; Start 01/07/17 at 20:00 Guaifenesin/ Dextromethorphan (Robitussin Dm Liquid Cup) 10 ml Q4H PRN PO COUGH ; Start 01/07/17 at 00:00 Olanzapine (Zyprexa) 5 mg DAILY PO Last administered on 01/15/17 09:13; Admin Dose 5 MG; Start 01/07/17 at 09:00 Miscellaneous Information 1 ea NOTE XX ; Start 01/07/17 at 01:00 Glucose (Glutose) 15 gm Q15M PRN PO DECREASED GLUCOSE; Start 01/07/17 at 01:00 Glucose (Glutose) 22.5 gm Q15M PRN PO DECREASED GLUCOSE; Start 01/07/17 at 01:00 Dextrose (D50w Syringe) 25 ml Q15M PRN IV DECREASED GLUCOSE; Start 01/07/17 at 01:00 Dextrose (D50w Syringe) 50 ml Q15M PRN IV DECREASED GLUCOSE; Start 01/07/17 at 01:00 Glucagon (Glucagen) 1 mg Q15M PRN IM DECREASED GLUCOSE; Start 01/07/17 at 01:00 Glucose (Glutose) 15 gm Q15M PRN BUCCAL DECREASED GLUCOSE; Start 01/07/17 at 01: 00 Diagnostic Test (Pha) (Accucheck) 1 ea 02 XX Last administered on 01/15/17 02: 56; Admin Dose 1 EA; Start 01/07/17 at 02:00 Enoxaparin Sodium (Lovenox) 30 mg DAILY SC Last administered on 01/15/17 07:58 ; Admin Dose 30 MG; Start 01/09/17 at 09:00 Zolpidem Tartrate (Ambien) 5 mg HS PRN PO INSOMNIA Last administered on 20:42; Admin Dose 5 MG; Start 01/08/17 at 12:00 Acetaminophen/ Hydrocodone Bitart ([place] (5/325)) 1 tab Q6H PRN PO PAIN Last administered on 01/15/17 09:17; Admin Dose 1 TAB; Start 01/09/17 at 11:00 Assessment/Plan Additional Assessment/Plan Rehab- Toxic metabolic encephalopathy. Continue rehab program. Anticipate dc tomorrow Status post acute respiratory failure chronic pulmonary disease exacerbation. Diastolic heart failure. Diabetes mellitus type 2-monitor Hypertension. Acute kidney injury. Urinary tract infection. ADRIANNE BURDEN MD Jan 15, 2017 12:06
--- NOTE | 2017-01-15 15:27 | PN ---
DATE: 01/15/2017 SUBJECTIVE: The patient is seen lying in bed comfortably, anticipated discharge is tomorrow. The p atient had a temperature of 99 this morning. Otherwise, the patient denies any evidence of infectio n. Denies dysuria, denies any cough. The patient overall with no complaints. PHYSICAL EXAMINATION: VITAL SIGNS: Temperature 99, pulse 62, respirations 20, blood pressure 155/67, saturation 96%. GENERAL: No acute distress. HEENT: Normocephalic, atraumatic. The patient is pale. CARDIOVASCULAR: S1 and S2, regular rate. LUNGS: Clear. ABDOMEN: Soft, nontender. EXTREMITIES: No clubbing, cyanosis, or edema. LABORATORY DATA: White count is 4.2, hemoglobin 9, hematocrit 29, that was 2 days ago. Chemistry o n 01/13/2017: Sodium 144, potassium 4.2, chloride 113, bicarbonate 19, BUN is 50, creatinine 1.87, glucose of 233. Last glucose levels were 190, 172, 174, better. UA on admission on 01/07/2017, was negative. The patient's urine culture on admission shows mixed gram-positive organisms. MEDICATIONS: Include: 1. [place] p.r.n. 2. Lovenox 30 mg subcutaneous daily. 3. Ambien 5 mg at bedtime p.r.n. 4. Senna 1 tab at bedtime. 5. Levemir 6 units daily. 6. Colace 100 b.i.d. 7. Metoprolol 25 b.i.d. 8. Aspirin 81 mg daily. 9. Isordil 20 mg t.i.d. 10. Norvasc 5 mg b.i.d. 11. Hydralazine 50 t.i.d. 12. Zyprexa 5 mg daily. 13. Insulin aspart per sliding scale. 14. Protonix 40 mg daily. 15. Hypoglycemia protocol. 16. Zofran p.r.n. 17. Tylenol p.r.n. 18. Ativan p.r.n. 19. Robitussin p.r.n. 20. Milk of magnesia p.r.n. 21. Lactulose p.r.n. 22. Dulcolax p.r.n. ASSESSMENT AND PLAN: This is a 81-year-old [place] female with history of chronic obstructive pulm onary disease, who recently presented with COPD exacerbation, pneumonia, encephalopathy and generali zed debilitated state. 1. Generalized weakness and recent confusion, deconditioning. The patient is now undergoing rehabi litation with physical therapy, continues to improve, more coherent. 2. Status post pneumonia, status post antibiotic management. We will repeat labs in the a.m. as th e patient had a temperature of 99. 3. Continue deep vein thrombosis prophylaxis and Protonix gastrointestinal prophylaxis. 4. Diabetes mellitus. Increase Levemir to 8 units. 5. Hypertension. Continue to monitor. Continue current regimen for now. 6. Diastolic dysfunction heart failure and systolic dysfunction heart failure, currently compensate d. 7. Acute on chronic renal insufficiency. We will follow up a.m. labs. Follow up the patient closely. Dictated By: DYLON HULL/MADAN Conf#: [id number] DID#: [id number]
[2017-01-15 20:00] VITALS: BP 145/61; RESP 18
[2017-01-15] MEDS ORDERED: INSULIN DETEMIR [LEVEMIR] 3ML CART SC SCH (20:00)
[2017-01-15] MEDS: SENNA TAB PO SCH (21:33)
[2017-01-15] MEDS: ZOLPIDEM 5 MG TAB PO PRN (21:35)
[2017-01-16] MEDS: ACCUCHECK AT 2AM (Patients on SS coverage) XX SCH (02:00)
[2017-01-16] MEDS: PANTOPRAZOLE (EC) 40 MG TAB PO SCH (06:08)
[2017-01-16] MEDS: Insulin NOVOLOG SS MILD Algorithm (SS with meals and bedtime) SC SCH (07:05)
[2017-01-16 07:29] LABS: ADD SCAN DIFF NO
[2017-01-16 07:30] VITALS: BP 148/67; RESP 18
[2017-01-16 07:33] LABS: BASOPHILS % 0.3 % (0.0-2.0); EOSINOPHILS # 0.2 10^3/ul (0.0-0.5); EOSINOPHILS % 5.5 % (0.0-7.0); HEMATOCRIT 29.8 % (37.0-47.0); HEMOGLOBIN 9.5 g/dl (12.0-16.0); LYMPHOCYTES # 1.5 10^3/ul (0.8-2.9); LYMPHOCYTES % 40.2 % (15.0-51.0); MEAN CORPUSCULAR HEMOGLOBIN 24.1 pg (29.0-33.0); MEAN CORPUSCULAR HGB CONC 31.9 g/dl (32.0-37.0); MEAN CORPUSCULAR VOLUME 75.6 fl (82.0-101.0); MEAN PLATELET VOLUME 11.5 fl (7.4-10.4); MONOCYTE # 0.5 10^3/ul (0.3-0.9); MONOCYTES % 12.3 % (0.0-11.0); NEUTROPHIL # 1.6 10^3/ul (1.6-7.5); NEUTROPHILS % 40.9 % (39.0-77.0); PLATELET COUNT 277 10^3/UL (140-415); RED BLOOD COUNT 3.94 10^6/ul (4.20-5.40); RED CELL DISTRIBUTION WIDTH 21.4 % (11.5-14.5); WHITE BLOOD COUNT 3.8 10^3/ul (4.8-10.8)
[2017-01-16 07:48] LABS: ALBUMIN 2.9 g/dl (3.3-4.9)
[2017-01-16 07:49] LABS: POTASSIUM 4.1 mmol/L (3.5-5.1)
[2017-01-16 07:51] LABS: BILIRUBIN,INDIRECT 0.2 mg/dl (0-1.1); BILIRUBIN,TOTAL 0.2 mg/dl (0.2-1.3); CREATININE 1.98 mg/dl (0.44-1.00)
[2017-01-16 07:51] LABS: MAGNESIUM 2.1 mg/dl (1.7-2.5); PHOSPHORUS 3.7 mg/dl (2.5-4.9)
[2017-01-16 07:52] LABS: ALBUMIN/GLOBULIN RATIO 0.87; CALCIUM 8.5 mg/dl (8.4-10.2); TOTAL PROTEIN 6.2 g/dl (6.1-8.1)
--- NOTE | 2017-01-16 08:57 | PN ---
DATE: 01/16/2017 SUBJECTIVE: The patient is stable, no acute events overnight. No fevers, chills, nausea, vomiting. OBJECTIVE: VITAL SIGNS: Blood pressure 145/61, respirations 18, pulse 63, temperature 98.1. HEENT: Head is normocephalic. NECK: Supple. HEART: Regular rate. LUNGS: Show diminished breath sounds at the bases. ABDOMEN: Soft, nontender to palpation. No rebound, guarding. EXTREMITIES: Negative for clubbing, cyanosis. No edema. DERMATOLOGIC: No rashes. MUSCULOSKELETAL: No joint effusions. NEUROLOGIC: No change in exam. MEDICATIONS: The patient's medications have been reviewed. LABORATORY DATA: Shows sodium 149, potassium 4.1, chloride 115, BUN 48, creatinine 1.98. White cou nt 3.8, hemoglobin 9.5, hematocrit 29.8, platelet count is 277. ASSESSMENT AND PLAN: 1. Nonoliguric acute kidney injury on top of chronic kidney disease stage IV. Etiology of acute ki dney injury is secondary to hemodynamics. Renal function appears to have stabilized around a creati nine of 1.7 to 1.8 mg/dL. Continue current treatment plan, supportive care, renally dose all medica tions, avoid nephrotoxins. 2. Hypernatremia. The patient has a free water deficit of approximately 1.5 liters. We will rehana nue to encourage free water intake. 3. Acute diastolic heart failure, improved. Continue medical management. 4. Hypertension. Current blood pressure regimen. 5. Diabetes. Continue Accu-Cheks, insulin sliding scale. 6. Anemia. Continue to monitor hemoglobin and hematocrit levels. 7. Status post urinary tract infection. 8. Status post respiratory failure. Dictated By: MIKE ROSA/MADAN Conf#: [id number] DID#: [id number]
[2017-01-16] MEDS: ASPIRIN 81 MG TAB PO SCH (09:22)
[2017-01-16] MEDS: DOCUSATE SODIUM 100 MG CAP PO SCH (09:24)
[2017-01-16] MEDS: ISOSORBIDE DINITRATE (SA) 40 MG TAB PO SCH (09:25)
[2017-01-16] MEDS: AMLODIPINE 5 MG TAB PO SCH (09:25)
[2017-01-16] MEDS: METOPROLOL 25 MG TAB PO SCH (09:27)
[2017-01-16] MEDS: OLANZAPINE 5 MG TAB PO SCH (09:27)
[2017-01-16] MEDS: ENOXAPARIN 30 MG/0.3 ML SYG SC SCH (09:28)
[2017-01-16] MEDS: ACETAMINOPHEN 325 MG TAB PO PRN (09:37)
[2017-01-16] MEDS ORDERED: INSULIN DETEMIR [LEVEMIR] 3ML CART SC SCH (20:00)
== END 2017-01-16 12:04 | disposition home health service (06) | DRG 91 ==
LOC: VRC 22:35
PROVIDERS: ADMIT Physical Medicine & Rehabilitation; ATTEND Internal Medicine
DX: G92 Toxic encephalopathy (principal); J96.00 Acute respiratory failure, unspecified whether with hypoxia or hypercapnia; J18.9 Pneumonia, unspecified organism; I50.31 Acute diastolic (congestive) heart failure; E87.0 Hyperosmolality and hypernatremia; N17.9 Acute kidney failure, unspecified; N18.4 Chronic kidney disease, stage 4 (severe); F03.90 Unspecified dementia, unspecified severity, without behavioral disturbance, psychotic disturbance, mood disturbance, and anxiety; I13.0 Hypertensive heart and chronic kidney disease with heart failure and stage 1 through stage 4 chronic kidney disease, or unspecified chronic kidney disease; D64.9 Anemia, unspecified; E11.9 Type 2 diabetes mellitus without complications; J44.1 Chronic obstructive pulmonary disease with (acute) exacerbation; N39.0 Urinary tract infection, site not specified; M79.672 Pain in left foot; M85.872 Other specified disorders of bone density and structure, left ankle and foot; F06.31 Mood disorder due to known physiological condition with depressive features; F06.8 Other specified mental disorders due to known physiological condition
CPT/HCPCS: 73620; 80048; 80053; 81001; 81003; 82962; 83735; 84100; 84560; 85025; 87081; 87086; 92507; 92523; 92526; 92610; 95852; 97110; 97112; 97116; 97150; 97163; 97166; 97530; 97535; J1650; J1815

== ENCOUNTER 2018-10-16 16:59 | Inpatient (IN) | payer MEDICARE, OTHER ==
[~2018-10-16] VITALS: Ht 149.9 cm; Wt 38.6 kg
[~2018-10-16 16:59] MED LIST changes: +NIFE60TA18 PO; -NIFE60TA7 PO
[2018-10-16] MEDS ORDERED: ACET-2047 GTB (17:56)
[2018-10-16] MEDS ORDERED: AMLO5TAB4 GTB (17:59)
[2018-10-16] MEDS ORDERED: LORA1TAB GTB (18:01)
[2018-10-16] MEDS ORDERED: DOCU-144 GTB (18:02)
[2018-10-16] MEDS ORDERED: CLON1PAT2 TD (18:02)
[2018-10-16] MEDS ORDERED: FERR220S13 GTB (18:03)
[2018-10-16] MEDS ORDERED: FOLI-49 GTB (18:04)
[2018-10-16] MEDS ORDERED: HYDR-3671 GTB (18:05)
[2018-10-16] MEDS ORDERED: IPRA3AMP29 INHALATION (18:07)
[2018-10-16] MEDS ORDERED: LINA145C GTB (18:08)
[2018-10-16] MEDS ORDERED: INSU100I27 SQ (18:08)
[2018-10-16] MEDS ORDERED: METO-429 GTB ×2 (18:10→18:11)
[2018-10-16] MEDS ORDERED: POLY17PO6 GTB (18:12)
[2018-10-16] MEDS ORDERED: NEPHRO-VITE GTB (18:13)
[2018-10-16] MEDS ORDERED: CALC1TAB93 GTB (18:14)
[2018-10-16] MEDS ORDERED: PANT40TA3 GTB (18:14)
[2018-10-16] MEDS ORDERED: SEVE800T7 GTB (18:15)
[2018-10-16] MEDS ORDERED: QUET25TA GTB (18:16)
[2018-10-16] MEDS ORDERED: LINA5TAB GTB (18:16)
[2018-10-16] MEDS ORDERED: CHOL400T8 GTB (18:17)
[2018-10-16] MEDS ORDERED: ONDA4TAB13 GTB (18:18)
[2018-10-16] MEDS ORDERED: NOVO3I SC (18:21)
[2018-10-16] MEDS ORDERED: ONDANSETRON 4 MG INJ IV PRN ×2 (19:00→22:00)
[2018-10-16] MEDS ORDERED: ACETAMINOPHEN 325 MG TAB PO PRN (19:00)
--- NOTE | 2018-10-16 20:08 | ERD ---
ER Documentation Chief Complaint Chief Complaint bib ra from dialysis, did not recieve dialysis, here for weakness HPI Patient is an 83-year-old female with CHF, COPD, diabetes, anemia, and dialysis who presents for low blood pressure and altered mental status. The patient was brought in by ambulance. She came from dialysis. She did not get dialysis because she was altered and the pressure was low. She had been given 1 Ativan prior as well. Please note the history and physical exam is limited secondary to mental status. ROS All systems reviewed and are negative except as per history of present illness. Medications Home Meds Reported Medications Insulin Aspart* (Novolog Insulin Pen*) 100 Unit/Ml Soln, 0 SC .SLIDING SCALE AC, EA IF BS 150-199=2 UNITS,200-249=3 UNITS,250-299=5 UNITS,300-349=7 UNITS>349=10 UNITS THEN CALL MD. 10/16/18 Ondansetron Hcl* (Zofran*) 4 Mg Tab, 4 MG GTB Q4H PRN for NAUSEA AND OR VOMITING, TAB 10/16/18 Cholecalciferol (Vitamin D3) 400 Unit Tablet, 800 UNIT GTB DAILY, TAB 10/16/18 Linagliptin (TRADJENTA) 5 Mg Tablet, 5 MG GTB DAILY, TAB 10/16/18 Quetiapine Fumarate* (Seroquel*) 25 Mg Tablet, 25 MG GTB BID, #60 TAB 10/16/18 Sevelamer Carbonate* (Renvela*) 800 Mg Tablet, 0.8 GM GTB BID, TAB 10/16/18 Pantoprazole* (Protonix*) 40 Mg Tablet.dr, 40 MG GTB QAM, TAB 10/16/18 Calcium Carbonate/Vitamin D3 (OYSTER SHELL 500 MG + VIT D TB) 1 Each Tablet, 1 EACH GTB BID, TAB 10/16/18 [Nephro-Roque] No Conflict Check, 0.8 MG GTB DAILY 10/16/18 Polyethylene Glycol* (Miralax*) 17 Gm Powd.pack, 17 GM GTB Q24H, #30 PACKET 10/16/18 Metoprolol Tartrate* (Lopressor*) 50 Mg Tab, 50 MG GTB DAILY, #60 TAB Q MON,WED,FRI,SUN,HOLD FOR SBP<110 OR ID<60 10/16/18 Metoprolol Tartrate* (Lopressor*) 50 Mg Tab, 50 MG GTB DAILY, #60 TAB QTUE,ANDREW,SAT,HOLD FOR SBP<110 OR ID<60 10/16/18 Linaclotide (LINZESS) 145 Mcg Capsule, 145 MCG GTB DAILY, #30 CAP 10/16/18 Insulin Detemir (Levemir Flextouch) 100 Unit/1 Ml Insuln.pen, 18 UNIT SQ DAILY, EA 10/16/18 Ipratropium-Albuterol (Ipratropium-Albuterol) 0.5-3 Mg/3 Ml Ampul.neb, 3 ML INHALATION Q6, #30 VIAL FOR 14 DAYS,STOP DATE 10/17/18 10/16/18 Hydralazine Hcl* (Hydralazine Hcl*) 25 Mg Tab, 25 MG GTB DAILY, #60 TAB Q TUE,ANDREW,SAT,HOLD IF SBP<110 OR ID<60 10/16/18 Folic Acid* (Folic Acid*) 1 Mg Tablet, 1 MG GTB DAILY, TAB 10/16/18 Ferrous Sulfate* (Ferrous Sulfate*) 220 Mg/5 Ml Solution, 7.5 ML GTB BID, ML 10/16/18 Docusate Sodium* (Colace*) 100 Mg Capsule, 100 MG GTB DAILY, #30 CAP 10/16/18 Clonidine Patch (CLONIDINE PATCH) 0.2 Mg/24 Hr Patch, 1 PATCH.WK TD Q SUN, #4 PATCH.WK 10/16/18 Lorazepam* (Lorazepam*) 1 Mg Tablet, 1 MG GTB HS PRN for ANXIETY, #30 TAB Q TUE,ANDREW,SAT 10/16/18 Amlodipine Besylate* (Norvasc*) 5 Mg Tablet, 5 MG GTB DAILY, TAB TAKE Q TUE,ANDREW,SAT FOR HTN, HOLD FOR SBP<110 OR ID<60 10/16/18 Amlodipine Besylate* (Norvasc*) 5 Mg Tablet, 5 MG GTB BID, TAB TAKE Q MON,WED,FRI,SUN,HOLD FOR SBP<110 OR ID<60 10/16/18 Acetaminophen* (Acetaminophen*) 650 Mg Tablet, 650 MG GTB Q6H PRN for PAIN LEVEL 1-1010, #30 TAB 10/16/18 Discontinued Reported Medications Diclofenac Sodium* (Diclofenac Sodium*) 75 Mg Tablet.dr, 75 MG PO BID 02/13/14 [vit d] No Conflict Check 02/13/14 Potassium Chloride* (Potassium Chloride*) 8 Meq Capsule.er, 10 MEQ PO DAILY 02/13/14 Metoprolol Tartrate (LOPRESSOR) 50 Mg Tab, 25 MG PO BID, TAB 02/13/14 Hydralazine Hcl* (Hydralazine Hcl*) 50 Mg Tablet, 50 MG PO DAILY 02/13/14 Nifedipine* (Nifedipine ER*) 60 Mg Tablet.sa, 60 MG PO BID 02/13/14 Furosemide* (Furosemide*) 40 Mg/5 Ml Solution, MG PO DAILY 02/13/14 Sitagliptin* (Januvia*) 50 Mg Tablet, 50 MG PO DAILY 02/13/14 Pantoprazole (Protonix) 40 Mg Tabec, 40 MG PO DAILY 02/13/14 Gabapentin (GABAPENTIN) 300 Mg/6 Ml Solution, 300 MG PO HS 02/13/14 Calcium Carbonate (Calcium Carbonate) 650 Mg Tablet, 650 MG PO BID 02/13/14 Docusate Sodium* (Colace*) 250 Mg Capsule, 250 MG PO BID 02/13/14 Ferrous Sulfate* (Ferrous Sulfate*) 325 Mg Tabec, 325 MG PO DAILY 02/13/14 Allergies Allergies: Coded Allergies: No Known Allergy (Unverified , 10/16/18) PMhx/Soc History of Surgery: No Anesthesia Reaction: No Hx 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 Disorder: No Hx Respiratory Disorders: Yes (COPD) Hx Cardiac Disorders: Yes (HTN) Hx Psychiatric Problems: Yes (confusion and agitation) Hx Alcohol Use: No Hx Substance Use: No Hx Tobacco Use: Yes Smoking Status: Never smoker FmHx Unable to obtain Physical Exam Vitals Vital Signs Date Temp Pulse Resp B/P (MAP) Pulse Ox O2 O2 Flow FiO2 Time Delivery Rate 10/16/18 98.0 90 20 102/44 97 Room Air 19:40 (63) 10/16/18 86 24 112/52 96 Room Air 18:45 (72) 10/16/18 83 14 97/47 (64) 96 Room Air 17:32 10/16/18 Nasal 2 17:13 Cannula 10/16/18 98.3 86 19 129/79 96 17:09 (96) Physical Exam Const: Altered Head: Atraumatic Eyes: Normal Conjunctiva ENT: Normal External Ears, Nose and Mouth. Neck: Full range of motion. No meningismus. Resp: Clear to auscultation bilaterally Cardio: Regular rate and rhythm, no murmurs Abd: Soft, non tender, non distended. Normal bowel sounds Skin: No petechiae or rashes Back: No midline or flank tenderness Ext: No cyanosis, or edema Neur: Eyes closed but will respond to sternal rub Result Diagram: 10/16/18 1747 10/16/18 1747 Results 24 hrs Laboratory Tests Test 10/16/18 17:47 10/16/18 17:48 White Blood Count 10.7 10^3/ul Red Blood Count 4.45 10^6/ul Hemoglobin 10.7 g/dl Hematocrit 36.5 % Mean Corpuscular Volume 82.0 fl Mean Corpuscular Hemoglobin 24.0 pg Mean Corpuscular Hemoglobin Concent 29.3 g/dl Red Cell Distribution Width 21.8 % Platelet Count 263 10^3/UL Mean Platelet Volume 10.5 fl Immature Granulocytes % 0.900 % Neutrophils % 71.0 % Lymphocytes % 14.9 % Monocytes % 7.9 % Eosinophils % 4.7 % Basophils % 0.6 % Nucleated Red Blood Cells % 1.2 /100WBC Immature Granulocytes # 0.100 10^3/ul Neutrophils # 7.6 10^3/ul Lymphocytes # 1.6 10^3/ul Monocytes # 0.9 10^3/ul Eosinophils # 0.5 10^3/ul Basophils # 0.1 10^3/ul Nucleated Red Blood Cells # 0.1 10^3/ul Prothrombin Time 13.0 Sec Prothrombin Time Ratio 1.0 INR International Normalized Ratio 0.97 Activated Partial Thromboplast Time 32.0 Sec Sodium Level 131 mmol/L Potassium Level 3.4 mmol/L Chloride Level 91 mmol/L Carbon Dioxide Level 26 mmol/L Anion Gap 14 Blood Urea Nitrogen 46 mg/dl Creatinine 4.43 mg/dl Est Glomerular Filtrat Rate mL/min mL/min Glucose Level 124 mg/dl Calcium Level 8.9 mg/dl Ammonia 23 umol/l Troponin I < 0.012 ng/ml Lactic Acid Level 2.5 mmol/L Current Medications Medications Dose Sig/Ricardo Start Time Status Last (Trade) Ordered Route PRN Stop Time Admin Dose Reason Admin Ondansetron 4 mg BRIDGE ORDER 10/16/18 HCl (Zofran PRN IV 19:00 Inj) NAUSEA AND/OR 10/17/18 18:59 VOMITING 650 mg ER BRIDGE 10/16/18 Acetaminophen PRN PO MILD 19:00 (Tylenol PAIN(1-3)OR 10/17/18 18:59 Tab) ELEVATED TEMP Procedures/MDM CT brain read by radiology. Chest x-ray read by radiology. EKG read by me: Rate/Rhythm: Regular rate and rhythm at a normal rate Intervals: Normal Impression: No evidence of ischemia or arrhythmia Patient is a 83-year-old female with multiple comorbidities who presents after she missed dialysis. Blood pressure was slightly low. At this point I see no sign of obvious infection and I doubt sepsis. I do believe the patient requires admission for dialysis as her next scheduled dialysis would be Thursday. I spoke with Dr. Perez her primary doctor who says that she has a history of dementia. The patient will be admitted to a medical surgical bed as her potassium is actually low at 3.4. Departure Diagnosis: Primary Impression: Missed dialysis Additional Impressions: Acute weakness Altered mental status Altered mental status type: unspecified Qualified Codes: R41.82 - Altered mental status, unspecified Condition: Serious MEGAN BRIGGS MD Oct 16, 2018 20:08
[2018-10-16 20:22] VITALS: BP 123/60; PULSE 88; RESP 18
[2018-10-16] MEDS ORDERED: POLYETHYLENE GLYCOL 17 GM PACKET GTB PRN (22:00)
[2018-10-16] MEDS ORDERED: GLUCOSE GEL 15 GRAM TUBE PO PRN ×2 (22:30)
[2018-10-16] MEDS ORDERED: GLUCAGON 1 MG INJ IM PRN (22:30)
[2018-10-16] MEDS ORDERED: DEXTROSE 50% 50 ML SYRINGE IV PRN ×2 (22:30)
--- NOTE | 2018-10-16 22:30 | NUR ---
Admitted an 83 y/o female patient from ER Dx: Encephalopathy, missed HD. MD was called for admission orders received and carried out. deck supervisor/ Harley made aware of 1:1 sitter order for the patient. Pt's daughter had called twice and informed staff that patient needs a sitter, had asked the doctor herself to put it in order. Said further that bed alarm is not enough and that she can't afford for another fall to happen. Patient had a fall at [facility] last July and sustained fracture of left hip, had surgery and since then unable to walk. Patient is confused and disoriented. Nursing Office will update of staff availability for 1:1 sitter. Fall risks precautions in place.
[2018-10-16 23:16] VITALS: Ht 149.9 cm; Wt 38.6 kg
[2018-10-16] MEDS: FERROUS SULFATE 60 MG/ML 5ML CUP GTB SCH (23:54)
[2018-10-16] MEDS: METOPROLOL 25 MG TAB GTB SCH (23:55)
[2018-10-16] MEDS: SENNA TAB GTB SCH (23:55)
[2018-10-16] MEDS: QUETIAPINE 25 MG TAB GTB SCH (23:55)
[2018-10-17 01:45] VITALS: BP 103/64; PULSE 62; RESP 16
[2018-10-17] MEDS: ACCU-CHEK XX SCH ×5 (02:16→21:44)
[2018-10-17] MEDS: PANTOPRAZOLE (EC) 40 MG TAB PO SCH (05:59)
--- NOTE | 2018-10-17 06:58 | NUR ---
END OF SHIFT: PATIENT SLEPT WELL. NO S/S HYPO/HYPERGLYCEMIA NOTED.HOURLY ROUNDING DONE. BED ALARM ON AND STAFF PRESENT IN THE ROOM FOR SAFETY.V/S STABLE. KEPT CLEAN AND DRY.NO RESP. DISTRESS NOTED.
[2018-10-17 07:43] VITALS: BP_SYST 110; BP_SYST 97; BP_DIAS 52; BP_DIAS 67; PULSE 69; RESP 18
[2018-10-17] MEDS ORDERED: INSULIN DETEMIR [LEVEMIR] (100 UNITS/ML) SYG SC SCH (08:00)
[2018-10-17] MEDS: DOCUSATE SODIUM 10 MG/ML (10ML CUP) GTB SCH (08:27)
[2018-10-17] MEDS: FOLIC ACID 1 MG TAB GTB SCH (08:28)
[2018-10-17] MEDS: FERROUS SULFATE 60 MG/ML 5ML CUP GTB SCH ×2 (08:28→21:43)
[2018-10-17] MEDS: LINAGLIPTIN 5 MG TABLET G-TUBE SCH (08:28)
[2018-10-17] MEDS: MULTIVIT/CA CARB/B CMPLX/FA TAB GTB SCH (08:29)
[2018-10-17] MEDS: SEVELAMER CARBONATE 0.8 GM PKT GTB SCH (08:29)
[2018-10-17] MEDS: QUETIAPINE 25 MG TAB GTB SCH ×2 (08:29→21:43)
[2018-10-17] MEDS: SENNA TAB GTB SCH ×2 (08:29→21:43)
[2018-10-17] MEDS: METOPROLOL 25 MG TAB GTB SCH (08:31)
[2018-10-17] MEDS: INSULIN ASPART [NOVOLOG] 3 ML PEN SC SCH ×4 (08:39→21:00)
--- NOTE | 2018-10-17 13:10 | NUR ---
Patient has low BP 78/42, P 65 on Left Arm, 74/37 on Right Arm, P 64. Dr. Perez at nursing station made him aware. Will give 500ml bolus of NS. Patient is awake and alert. Will monitor patient closely
[2018-10-17] MEDS ORDERED: SOD CHLORIDE 0.9% 500 ML IV ONE (13:30)
[2018-10-17 14:02] VITALS: BP 93/47; PULSE 70; RESP 16
--- NOTE | 2018-10-17 14:34 | NUR ---
Spoke to Dr. Perez made him aware patient's blood culture is gram positive cocci in pairs and chains. Vanco IV was ordered per pharmacy to dose. His also aware about the patient's current BP 93/47, P 62. No further order given
[2018-10-17] MEDS ORDERED: VANCOMYCIN IV PER PHARMACY XX SCH (15:00)
--- NOTE | 2018-10-17 15:55 | NUR ---
RX NOTE: VANCOMYCIN IV PER RX PROTOCOL 83 YO FROM SNF, ADMITTED FROM HD CENTER FOR HYPOTENSION AND AMS. PMHX: ESRD-HD/COPD/DM/CHF WT~ 84LBS BUN/SCR = 49/4/95. 10/16 BLD CX X1: GPC (SPECIATION PENDING) A/P: ESRD- ON HD. WILL GIVE VANCOMYCIN 1GM X1. REBOLUS NEEDED FOR THERAPEUTIC GOAL "TROUGH" OF 10-20. RX WILL TO CONTINUE TO FOLLOW CLOSELY.
[2018-10-17] MEDS ORDERED: VANCOMYCIN 1 GM 250 ML IVPB SCH (16:00)
--- NOTE | 2018-10-17 17:46 | HP ---
DATE OF ADMISSION: 10/16/2018 REASON FOR ADMISSION: Hypotension at the dialysis center and mild encephalopathy. HISTORY OF PRESENT ILLNESS: Patient is an 83-year-old [place]ian female, very well known to me with hi story of end-stage renal disease on dialysis 3 times a week with Dr. Juliocesar Stringer. Also, history of diastolic dysfunction heart failure, diabetes mellitus type 2, hypertension, vascular dementia and an xiety disorder. The patient also has history of COPD. The patient was in usual state of health up u ntil the day of admission when she was at dialysis center and noted to have a blood pressure in the 8 0s. Also, patient was somewhat more confused. She was transferred to [facility] Emergency Department for further evaluation. Upon presentation, the patient underwent various tests including labs, which shows a normal white count of 10.7, hemoglobin 10.7, BUN, creatinine was 46/4.43 and a po tassium of 3.4. Lactic acid was slightly high at 2.5 and troponin was negative. The patient receive d Zofran, Tylenol. Because of her end-stage dialysis, she did not receive aggressive fluid hydration . Overall, it was decided to admit the patient for monitoring and likely resume dialysis. EKG showe d normal sinus rhythm at 85 beats per minute. The patient needed further care. Upon evaluation, the daughter is at bedside. The patient is resting comfortably without oxygen. No reports of fever, ch ills, fall, etc. PAST MEDICAL HISTORY: End-stage renal disease on dialysis, diabetes mellitus, anemia, osteoarthritis , COPD, diastolic dysfunction heart failure, dysphagia and moderate caloric-protein malnutrition. SURGICAL HISTORY: Includes and G-tube placement. ALLERGIES: NO DRUG ALLERGIES. FAMILY HISTORY: Noncontributory. REVIEW OF SYSTEMS: Per HPI. MEDICATIONS: The patient's home medications were reviewed as she currently resides at [facility]. 1. Levemir 18 units daily. 2. Linzess 145 twice a day. 3. Lopressor 50 mg b.i.d., sometimes not given on dialysis days. 4. MiraLax 17 grams daily. 5. Nephro-Roque 1 tab daily. 6. Oyster brittany 500 mg b.i.d. 7. Tylenol p.r.n. 8. Amlodipine 5 mg daily. 9. Ativan 1 mg twice a day. 10. Clonidine 0.2 as directed. 11. Colace 100 b.i.d. 12. Ferrous sulfate 325 as directed. 13. Folic acid 1 mg daily. 14. Hydralazine 25 daily. 15. Insulin aspart 70/30 per sliding scale. 16. Ipratropium as directed. 17. Protonix 40 mg daily. 18. Renvela as directed. 19. Senna, as directed. 20. Seroquel 25 twice a day. 21. Tradjenta 5 mg daily. 22. Vitamin D3 400 daily. 23. Zofran p.r.n. PHYSICAL EXAMINATION: VITAL SIGNS: Temperature 97.6, pulse 69, respirations 18, blood pressure 110/67, saturation 97%. GENERAL: The patient in no acute distress. HEENT: Atraumatic, normocephalic. Temporal wasting, decreased dentition, pale. CARDIOVASCULAR: S1, S2, regular rate. LUNGS: Clear. ABDOMEN: Soft. G-tube in place. EXTREMITIES: No clubbing, cyanosis, or edema. LABORATORY DATA: White count is normal at 7.2, hemoglobin 9.7, hematocrit 31, platelet count of 360, neutrophils 65%, seds 15%. Chemistry: Sodium 131, potassium 3.6, chloride 91, bicarbonate 28, BUN is 49, creatinine 4.95, glucose 107. Hemoglobin A1c is normal at 5.2. Lactic acid normalized at 1.2 . AST 22, ALT 19, alkaline phosphatase 68. TSH 0.863. INR is 0.97. IMAGING: CAT scan of the brain done in the emergency department shows no acute intracranial hemorrha ge or mass effect. There is old left MCA and left IMPLEMENTATION TECHNICIAN patch territory infarct with otherwise mild pr esumed chronic small vessel ischemic changes and central atrophy. MRI of the brain has improved sens itivity for acute infarct or septal lesion. The patient's chest x-ray reveals left lower lung field subsegmental atelectasis. No focal consolidation, pleural effusion, or pneumothorax. ASSESSMENT AND PLAN: This is an unfortunate 83-year-old [place]ian female with end-stage renal disease , COPD, vascular dementia, CVA as above CAT scan shows, mild malnutrition, dysphagia, who presented w ith hypotension. 1. Respiratory: Stable, in no distress. O2 support as needed. 2. Cardiovascular: The patient with hypotension; actually just now the nurse informed me that the b marcinod pressure again is low in the low 80s. Will give the patient a bolus of fluids. Clinically, burch s not appear to be fluid overload state based on clinical exam and on chest x-ray. The patient will be placed on DVT prophylaxis with heparin. 3. Diabetes mellitus. Continue Accu-Chek every morning and at bedtime. Titrate insulin as needed. 4. Dysphagia. Continue G-tube feeding. The patient also has pureed diet for gratification and disc ussed with the nursing staff. Continue aspiration precautions. We will follow. 5. Hypertension. Hold all blood pressure medication. May consider echocardiogram to evaluate eject ion fraction in the setting of hypotension. 6. Psychiatric disorder. Resume psych meds. The patient with a sitter with risk of fall. 7. Anemia, likely anemia of chronic disease due to CKD. 8. End-stage renal disease. Dialysis is not urgent. The patient is overall stable, appears to be m ore on the dry side. Dr. Juliocesar Stringer to follow. Case discussed with the patient's daughter. We wi ll follow. Dictated By: DYLON HULL/MADAN Conf#: [id number] DID#: [id number]
--- NOTE | 2018-10-17 18:40 | NUR ---
Shift report No significant changes noted. Blood sugar checked administered insulin coverage. Urine specimen sent for UA and culture. Repeat blood culture came back positive with the same organism. Started on Vanco 1gm IV. Patient had puree diet for dinner. Repositioned q2h. office rental clerk at bedside at all times. Dr. Natarajan consulted
--- NOTE | 2018-10-17 19:02 | QN ---
Documentation Comment seen and examined JOSE RAUL ANDREWS MD Oct 17, 2018 19:02
[2018-10-17 20:00] VITALS: BP 98/55; PULSE 70; RESP 18
--- NOTE | 2018-10-17 20:16 | CONS ---
DATE OF ADMISSION: 10/16/2018 DATE OF CONSULTATION: TYPE OF CONSULTATION: Renal REASON FOR CONSULTATION: Hemodialysis. HISTORY OF PRESENT ILLNESS: This is an 83-year-old woman with the past medical history of end-stage renal disease on hemodialysis 3 times a week on Thursday, , Thursday, diastolic dysfunction, d iabetes, hypertension, vascular dementia, anxiety disorder, COPD who lives at the [facility], who was sent in from dialysis center due to low blood pressures. According to the daughter, patient had history of UTI before and was treated with antibiotics through the G-tube. The patient h as had her new Perm-A-Cath six months ago according to the snf and had been giving all her b lood pressure medicines even before dialysis. The patient was also on clonidine patch. When the pat ient went to dialysis center, she was noted to have blood pressure in the 80s. The patient was also more confused. On admission, vital signs showed a blood pressure of 110 with the dips to like 90s, r espirations 18, afebrile, pulse 69. The patient had a CT of the brain and showed no acute intracrani al abnormality, old left MCA and left SOCIAL WORK ASSISTANT patch territory. Chest x-ray revealed left lower lobe segm ental atelectasis. Labs showed a white count of 10.7, hemoglobin 10.7, BUN of 46 and creatinine of 4 .43, potassium 3.4. Lactic acid was slightly high at 2.5 and troponin was negative. The patient was admitted for further management. PAST MEDICAL HISTORY: 1. End-stage renal on hemodialysis for the last one year. 2. Hypertension. 3. Hyperlipidemia. 4. Vascular dementia. 5. Chronic obstructive pulmonary disease. 6. Congestive heart failure. 7. Moderate ____ and malnutrition. 8. Osteoarthritis. PAST SURGICAL HISTORY: and G-tube placement. ALLERGIES: NO DRUG ALLERGIES. FAMILY HISTORY: Noncontributory. SOCIAL HISTORY: The patient used to live with her daughter, however, currently resides at [facility]. [facility]S [facility]: 1. Levemir 18. 2. Linzess. 3. Lopressor 50 b.i.d. 4. MiraLax. 5. Nephro-Roque. 6. ____. 7. Tylenol. 8. Amlodipine. 9. Ativan. 10. Clonidine patch 0.2. 11. Colace. 12. Iron sulfate. 13. Folic acid. 14. Hydralazine. 15. Protonix. 16. Renvela. 17. Senna. 18. Seroquel. 19. Tradjenta. 20. Vitamin D3. 21. Zofran p.r.n. REVIEW OF SYSTEMS: The patient is currently confused and could not be obtained. PHYSICAL EXAMINATION: VITAL SIGNS: Currently temperature 98.0, blood pressure 93/47, pulse 70, respirations 16. GENERAL: The patient appears very confused. HEENT: Pupils equal, round, reactive to light. Actually, patient appears dry. NECK: Supple. No JVD. HEART: Regular rate and rhythm. LUNGS: Clear to auscultation bilaterally. ABDOMEN: Soft, nontender, nondistended. The patient has a G-tube in place. EXTREMITIES: Multiple bruises present. The patient has a right chest wall Perm-A-Cath. LABORATORY DATA: Sodium 131, potassium 3.6, chloride 91, BUN of 49, creatinine 4.95. White count 10 .7, hemoglobin 10.7, platelet count 263. UA shows 138 WBC, 18 RBCs, moderate bacteria. INR 0.97. DIAGNOSTIC DATA: CT of the head showed old left MCA and left SOCIAL WORK ASSISTANT branch territory infarcts. Chest x -ray is essentially negative. ASSESSMENT AND PLAN: This is an 83-year-old female with: 1. Hypotension, could be secondary to sepsis as the patient has positive bacteremia/urinary tract in fection. The patient could continue on blood pressure medicines aggressively while going for dialysi s. 2. Altered level of consciousness, likely secondary to metabolic encephalopathy, secondary to low bl ood pressures. 3. Mild hyponatremia. 4. End-stage renal disease on hemodialysis. 5. Diabetes. 6. Dysphagia, status post G-tube feeding. 7. History of vascular dementia. 8. Hypertension. 9. History of falls. 10. Anemia. PLAN: At this period of time, patient is admitted to med-surg. We will continue the patient on vanc omycin and Rocephin. Urine cultures will be sent. We will also hold off on dialysis now. We will c all ID consultation with Dr. Proctor and vascular consultation with Dr. Sagastume. Based on the blood cul tures, patient will likely need Perm-A-Cath removal. I spoke to the daughter, ____, over the phone t o hold off all blood pressure medicines. Rest of the treatment will depend on the patient's hospital ization course. Dictated By: JOSE RAUL FERNANDO/MADAN Conf#: [id number] DID#: [id number] CC: DYLON WALLS MD;*EndCC*
[2018-10-17] MEDS: GLUCOSE GEL 15 GRAM TUBE BUCCAL PRN ×2 (21:10→21:33)
--- NOTE | 2018-10-17 21:30 | NUR ---
BLOOD GLUCOSE LEVEL 54,RECHECKED TO VERIFY 52. PATIENT ALERT AND AWAKE.NO DIAPHORESIS NOTED.GIVEN GLUCOSE GEL PRN.
--- NOTE | 2018-10-17 21:33 | NUR ---
BLOOD GLUCOSE 57,59 ON BLOOD DRAW.GLUCOSE GEL GIVEN ORDERED.
[2018-10-17] MEDS: CEFTRIAXONE 1 GM/50 ML (PMX) 50 ML IVPB SCH (21:44)
--- NOTE | 2018-10-17 21:59 | NUR ---
BLOOD SUGAR RECHECKED 103 AT THIS TIME.PATIENT REMAINS AWAKE AND ALERT .
--- NOTE | 2018-10-17 22:23 | NUR ---
RECHECKED BLOOD SUGAR,[id number].
[2018-10-18] VITALS (20 sets, daily range): BP systolic 92–146; BP diastolic 47–69; PULSE 74–98; RESP 18–20
[2018-10-18] MEDS: ACCU-CHEK XX SCH ×5 (02:00→21:00)
[2018-10-18] MEDS: PANTOPRAZOLE (EC) 40 MG TAB PO SCH (05:21)
--- NOTE | 2018-10-18 06:12 | NUR ---
SHIFT NOTES: PATIENT WITH 1 TO 1 SITTER AT BEDSIDE.TOLERATED TUBE FEEDING WEE. TURNED AND REPOSITIONED Q 2HOURS.KEPT CLEAN AND DRY.PATIENT CONFUSED AND DISORIENTED.NO C/O PAIN OR DISCOMFORT.V/S STABLE.NO RESP. DISTRESS NOTED. AFEBRILE.
[2018-10-18] MEDS: SENNA TAB GTB SCH ×2 (09:13→20:44)
[2018-10-18] MEDS: SEVELAMER CARBONATE 0.8 GM PKT GTB SCH (09:14)
[2018-10-18] MEDS: MULTIVIT/CA CARB/B CMPLX/FA TAB GTB SCH (09:14)
[2018-10-18] MEDS: LINAGLIPTIN 5 MG TABLET G-TUBE SCH (09:14)
[2018-10-18] MEDS: DOCUSATE SODIUM 10 MG/ML (10ML CUP) GTB SCH (09:14)
[2018-10-18] MEDS: FERROUS SULFATE 60 MG/ML 5ML CUP GTB SCH ×2 (09:14→20:44)
[2018-10-18] MEDS: QUETIAPINE 25 MG TAB GTB SCH ×2 (09:14→20:44)
[2018-10-18] MEDS: FOLIC ACID 1 MG TAB GTB SCH (09:14)
[2018-10-18] MEDS ORDERED: ALBUMIN HUMAN 25% 50 ML IV PRN (10:30)
[2018-10-18] MEDS ORDERED: POTASSIUM CHLORIDE (SR) 10 MEQ TAB PO SCH (10:30)
--- NOTE | 2018-10-18 10:44 | NUR ---
MEE CONFIRMATION # [id number] FOR HD TODAY
--- NOTE | 2018-10-18 11:41 | CONS ---
DATE OF ADMISSION: 10/16/2018 DATE OF CONSULTATION: 10/17/2018 TYPE OF CONSULTATION: Infectious disease. REASON FOR CONSULTATION: Antibiotic management. HISTORY OF PRESENT ILLNESS: Zahira White is an 83-year-old female admitted on 10/16/2018 with hypert ension from the dialysis center and is being seen for antibiotic management. She is an 83-year-old F ilip[place] with: 1. End-stage renal disease on hemodialysis 3 times a week. 2. Diastolic dysfunction heart failure. 3. Diabetes mellitus. 4. Hypertension. 5. Vascular dementia. 6. Anxiety disorder 7. COPD. Patient was in her usual state of health until the day of admission, 10/16/2018, when she was at dial ysis and had a blood pressure in the 80s. She is also confused and was transferred to [facility]. She had a white count of 10.7, hemoglobin 10.7. BUN and creatinine 46/4.3, potassiu m 3.4. Lactic acid was 2.5. Troponin was negative. She received Zofran and Tylenol. She was admit gilbert. EKG showed regular sinus rhythm. PAST MEDICAL HISTORY: As outlined and includes protein calorie malnutrition. PAST SURGICAL HISTORY: Status post , status post G-tube placement. ALLERGIES: None to penicillin, sulfa or food. FAMILY HISTORY: Noncontributory. SOCIAL HISTORY: She does not smoke, drink or abuse drugs. MEDICATIONS: Per chart. REVIEW OF SYSTEMS: As per HPI. PHYSICAL EXAMINATION: GENERAL: The patient is an elderly appearing female who is somewhat demented. No acute distress. VITAL SIGNS: Stable. She is afebrile. SKIN: Without generalized rash. HEENT: Within normal limits. NECK: Supple. LYMPH NODES: None palpable. CHEST: Decreased breath sounds at the bases. HEART: Without murmur or gallop. ABDOMEN: Soft, nontender, without organosplenomegaly or masses. She has a G-tube. EXTREMITIES: Without cyanosis, clubbing, or edema. RECTAL AND GENITAL: Deferred. NEUROLOGIC: No focal neurological abnormalities. HOSPITAL COURSE: On admission, her white count was 7.2. BUN and creatinine 49/4.95. A CAT scan of the brain showed no acute intracranial hemorrhage or mass effect. There is an old MCA and left AIRCRAFT ENGINE MECHANIC OVERHAUL p atch territory infarct with otherwise mild presumed chronic small vessel ischemic changes and central atrophy. Her blood cultures have grown out gram-positive cocci in pairs and chains. Her white coun t is 7.6. IMPRESSION AND PLAN: The fear is that she has a Perm-A-Cath infection. Her chest x-ray shows left l ower lobe subsegmental atelectasis, no focal consolidation, pleural effusions or pneumothorax. The p atient's on vancomycin and ceftriaxone. I believe a repeat blood culture was done. Urine culture wa s done and the PermCath may have to be changed. I will dictate my findings to Dr. Walls and Dr. Dixon in. Dictated By: EDIE CHANG MD, JD/NTS Conf#: [id number] DID#: [id number] CC: DYLON WALLS MD; JOSE RAUL ANDREWS;*End*
--- NOTE | 2018-10-18 12:29 | CONS ---
DATE OF ADMISSION: 10/16/2018 DATE OF CONSULTATION: 10/18/2018 REFERRING PHYSICIAN: Dr. Linda Andrews. REASON FOR CONSULTATION: To evaluate for line infection. HISTORY OF PRESENT ILLNESS: This is a fairly demented 83-year-old Filipina woman. She was brought i n from a [facility] basically with some confusion and hypotension. She is a dialysis patient. She has a right IJ Perm-A-Cath that has been in place for about 6 months, it seems. She was found to lane ve positive blood cultures, gram-positive cocci in pairs and chains, has not been speciated yet, but that was the initial Gram stain. Dr. Andrews asked me to evaluate her for possible catheter removal. Again, she is bedridden. She has a G-tube for feeding. She has had a history of UTIs. She has RN SECURITY D. PAST MEDICAL HISTORY: Significant for end-stage renal disease, diabetes, anemia, arthritis, COPD, CH F, dysphagia, and dementia. PAST SURGICAL HISTORY: and a G-tube placement. MEDICATIONS: Consist of: 1. Levemir. 2. Linzess. 3. Lopressor. 4. MiraLax. 5. Nephro-Roque. 6. Tylenol. 7. Amlodipine. 8. Ativan. 9. Clonidine. 10. Colace. 11. Iron. 12. Folate. 13. Hydralazine. 14. Insulin. 15. Protonix. 16. Is getting some nebulizers. 17. Renvela. 18. Seroquel. 19. Tradjenta. 20. Vitamin D. 21. Zofran. She has also now been gettin. Subcutaneous heparin. 23. Ceftriaxone. 24. Vancomycin. SOCIAL HISTORY: It is really unclear as she is not able to give me any further history. Again, she is living in a fci. Her daughter is apparently a dialysis nurse. FAMILY HISTORY: Noncontributory. REVIEW OF SYSTEMS: She is currently lethargic. She does wake up and is a little bit agitated when s he wakes up. She has apparently been trying to pull out the catheter, but overall just has a fairly high level of dementia. PHYSICAL EXAMINATION GENERAL: She is an elderly Somali woman. She has no acute distress. VITAL SIGNS: She is afebrile. Her blood pressure is 146/69, heart rate 79, respiratory rate is 18. She is 94% sat on room air. NECK: She has 2+ carotid, radial and brachial pulses bilaterally. She has a right chest wall Perm-A -Cath in place. I do not see any external signs of infection. There is no erythema or drainage arou nd it. LUNGS: Clear. HEART: Regular rate and rhythm. ABDOMEN: Soft, nontender, nondistended. She does have a G-tube. The site looks okay. There is a l ittle bit of purulent stuff around the site, but it is not unusual looking. EXTREMITIES: She has 2+ femoral, popliteal, DP and PT pulses bilaterally. No leg edema. LABORATORY DATA: Show a white count of 7.6. It was a little higher at 10.7 yesterday when she came in. Her potassium is fine at 3.4. Creatinine is baseline in the 4 to [address] done kathrine ral days ago shows just old left-sided stroke. Again, the microbiology - the blood cultures showed 2 bottles with gram-positive cocci in pairs and chains. She has not dialyzed since last week, on of last week. IMPRESSION: Likely dialysis catheter infection. She is currently afebrile with normal white count. After several doses of IV antibiotics, she has not dialyzed in several days, so talked to Dr. Andrews , and she is going to dialyze either today or tomorrow and then can probably remove the catheter afte r dialysis and then plan for a few days holiday and then plan to replace the catheter later in the we ek. Dictated By: MIKEL JONES/MADAN Conf#: [id number] DID#: [id number] CC: LINDA ANDREWS; DYLON WALLS MD;*EndCC*
[2018-10-18] MEDS ORDERED: POTASSIUM CHLORIDE 20 MEQ POWDER FOR ORAL SOLN GTB SCH (12:30)
--- NOTE | 2018-10-18 13:36 | PN ---
DATE: 10/18/2018 SUBJECTIVE: The patient was seen. Unfortunately, her blood culture turned out to be positive for gr am-positive cocci in pairs, 2/2 bottles. The patient was started on antibiotic therapy with IV vanco mycin and IV ceftriaxone. ID was consulted and also vascular surgery was consulted. This patient mo st likely will have her dialysis catheter removed as we are concerned about line sepsis as the patien t's initial presentation was hypotension, encephalopathy. Repeat blood cultures were ordered as well and we will follow. I appreciate ID input and recommendation. PHYSICAL EXAMINATION: VITAL SIGNS: Temperature 97.5, pulse 79, respirations 18, blood pressure improved to 146/69, saturat ion 94%. GENERAL: The patient is in no acute distress. The patient is pale, alert. CARDIOVASCULAR: S1 and S2. Regular rate. LUNGS: Clear. ABDOMEN: Soft, nontender. EXTREMITIES: No clubbing, cyanosis or edema. SKIN: The patient is very thin. She does have a G-tube and a left upper extremity, PermCath. LABORATORY DATA: White count is 7.6, hemoglobin 9.1, hematocrit 30, platelet count of 330, neutrophi ls 72%, lymphocytes 14%. Chemistry: Sodium 132, potassium slightly low at 3.4, chloride 93, bicarbo rayray 25, BUN is 75, creatinine 4.6 and glucose of 170. TSH was 0.86. Hepatitis B antibody was posit mayur she is immune, antigen negative. Urinalysis also is positive for leukocyte esterase +2 and WBC m any 128 also suggestive of UTI, but urine culture is negative. CURRENT MEDICATIONS: Include: 1. Potassium chloride 10 mEq daily. 2. Heparin 4000 after dialysis. 3. Albumin as directed. 4. Rocephin 1 g q.24 hours. 5. Vancomycin dose per pharmacy. 6. Colace 100 daily. 7. Folic acid 1 mg daily. 8. Multivitamin. 9. Kianna-Roque 1 tab daily. 10. Tradjenta 5 mg daily. 11. Renvela 0.8 daily. 12. Accu-Chek as directed. 13. Protonix 40 mg daily. 14. MiraLax p.r.n. 15. Seroquel 25 b.i.d. 16. Ativan 1 mg q.8 p.r.n. 17. Senna 1 tab b.i.d. 18. Zofran p.r.n. 19. Tylenol p.r.n. ASSESSMENT AND PLAN: This is an 83-year-old [place] female with history of end-stage renal disease, chronic obstructive pulmonary disease, vascular dementia and cerebrovascular accident, who presented with hypotension, encephalopathy, was found to have bacteremia, likely line sepsis, also urinary tra ct infection. 1. Respiratory: Stable. O2 support as needed. 2. Cardiovascular: The patient's blood pressure is now better, status post bolus of fluids, treated for bacteremia currently. Heparin for deep venous thrombosis prophylaxis. 3. Diabetes mellitus. Continue Accu-Cheks. 4. Dysphagia. Continue G-tube feeding for oral gratification. Continue aspiration precautions. 5. Hypertension. Hold blood pressure medications in the setting of sepsis, bacteremia and hypotensi on. 6. Psychiatric disorder. Resume all psychiatric meds including Seroquel. 7. The patient has a sitter to monitor for risk of fall. 8. Anemia, likely anemia of chronic disease. Observe. 9. End-stage renal disease, dialysis per Dr. Natarajan. Likely, we will dialyze her and remove the kiran e and a new line be placed by Dr. Sagastume. Overall, clinically stable. We will follow. Case to be discussed with family. Dictated By: DYLON HULL/MADAN Conf#: [id number] DID#: [id number] CC: MIKEL SAGASTUME MD;*EndCC*
--- NOTE | 2018-10-18 16:59 | CONS ---
Date/Time of Note Date/Time of Note DATE: 10/18/18 TIME: 16:47 Assessment/Plan Assessment/Plan Chief Complaint/Hosp Course 83 y/o with This is an 83-year-old female with: 1. Hypotension, could be secondary to sepsis as the patient has positive bacteremia/urinary tract infection. The patient was continued on blood pressure medicines aggressively 2. Altered level of consciousness, likely secondary to metabolic encephalopathy, secondary to low blood pressures. vs Vascular dementia 3. Mild hyponatremia. 4. End-stage renal disease on hemodialysis. 5. Diabetes. 6. Dysphagia, status post G-tube feeding. 7. History of vascular dementia. 8. Hypertension. 9. History of falls. 10. Anemia. Plan -HD with high K bath today -PT patient has been afebrile white count has been normal but blood culture is positive spoke to Dr. Sagastume will do dialysis today for a good session and will likely give line holiday after -Also wait for final cultures -Appreciate vascular/ID consultation -HD today -HOLD Off BP meds -Renally dose all meds Consultation Date/Type/Reason Admit Date/Time Oct 16, 2018 at 18:45 Initial Consult Date 24 HR Interval Summary Free Text/Dictation She has been afebrile Cultures positive from gram-positive cocci in pairs/chains On vancomycin Exam/Review of Systems Vital Signs Vitals Vital Signs Date Temp Pulse Resp B/P (MAP) Pulse Ox O2 O2 Flow FiO2 Time Delivery Rate 10/18/18 90 16:15 10/18/18 18 118/59 Room Air 16:07 (78) 10/18/18 98.3 96 14:15 10/16/18 2 17:13 Intake and Output 10/17/18 10/17/18 10/18/18 1515:00 23:00 07:00 IntakeIntake Total 900 ml 250 ml 400 ml BalanceBalance 900 ml 250 ml 400 ml Exam GENERAL: The patient appears very confused. HEENT: Pupils equal, round, reactive to light. Actually, patient appears dry. NECK: Supple. No JVD. HEART: Regular rate and rhythm. LUNGS: Clear to auscultation bilaterally. ABDOMEN: Soft, nontender, nondistended. The patient has a G-tube in place. EXTREMITIES: Multiple bruises present. The patient has a right chest wall Perm-A-Cath. Medications Medications Current Medications Docusate Sodium (Colace Liquid Cup) 100 mg DAILY GTB Last administered on 10/18/18 09:14; Admin Dose 100 MG; Start 10/17/18 at 09:00 Ferrous Sulfate (Feosol Liquid Cup) 330 mg BID GTB Last administered on 10/18/18 09:14; Admin Dose 330 MG; Start 10/16/18 at 22:00 Folic Acid (Folic Acid) 1 mg DAILY GTB Last administered on 10/18/18 09:14; Admin Dose 1 MG; Start 10/17/18 at 09:00 Insulin Detemir (Levemir) 8 units DAILY@0800 SC Last administered on 10/17/18 08:40; Admin Dose 8 UNITS; Start 10/17/18 at 08:00; Status Hold Polyethylene Glycol (Miralax) 8.5 gm DAILY PRN GTB CONSTIPATION; Start 10/16/18 at 22:00 Multivit/Ca Carb/ B Cmplx/FA/Prenat (Kianna-Roque) 1 tab DAILY GTB Last administered on 10/18/18 09:14; Admin Dose 1 TAB; Start 10/17/18 at 09:00 Quetiapine Fumarate (Seroquel) 25 mg BID GTB Last administered on 10/18/18 09:14; Admin Dose 25 MG; Start 10/16/18 at 22:00 Linagliptin (Tradjenta) 5 mg DAILY G-TUBE Last administered on 10/18/18 09:14; Admin Dose 5 MG; Start 10/17/18 at 09:00 Diagnostic Test (Pha) (Accu-Chek) 1 ea AC MEALS AND BEDTIME XX Last administered on 10/18/18at 13:33; Admin Dose 1 EA; Start 10/17/18 at 07:00 Lorazepam (Ativan) 1 mg Q8H PRN GTB ANXIETY; Start 10/16/18 at 22:00 Pantoprazole (Protonix Tab) 40 mg DAILY@06 PO Last administered on 10/18/18 05:21; Admin Dose 40 MG; Start 10/17/18 at 06:00 Sevelamer Carbonate (Renvela) 0.8 gm DAILY GTB Last administered on 10/18/18 09:14; Admin Dose 0.8 GM; Start 10/17/18 at 09:00 Senna (Senokot) 1 tab BID GTB Last administered on 10/18/18at 09:13; Admin Dose 1 TAB; Start 10/16/18 at 22:00 Ondansetron HCl (Zofran Inj) 4 mg Q6H PRN IV NAUSEA AND/OR VOMITING; Start 10/16/18 at 22:00 Acetaminophen (Tylenol Liquid) 650 mg Q6 PRN GTB PAIN; Start 10/16/18 at 22:00 Miscellaneous Information (* Miscellaneous Pharmacy Order) LINZESS CAPSULE 145 ... DAILY PO ; Start 10/17/18 at 09:00; Status UNV Diagnostic Test (Pha) (Accu-Chek) 1 ea 02 XX Last administered on 10/17/18at 02:16; Admin Dose 1 EA; Start 10/17/18 at 02:00 Insulin Aspart (Novolog Insulin Pen) NOVOLOG *MODERATE* ALGORITHM WITH MEALS BEDTIME SC Last administered on 10/17/18at 17:48; Admin Dose 4 UNIT; Start 10/17/18 at 08:00; Status Hold Miscellaneous Information 1 ea NOTE XX ; Start 10/16/18 at 22:30 Glucose (Glutose) 15 gm Q15M PRN PO DECREASED GLUCOSE; Start 10/16/18 at 22:30 Glucose (Glutose) 22.5 gm Q15M PRN PO DECREASED GLUCOSE; Start 10/16/18 at 2 2:30 Dextrose (D50w Syringe) 25 ml Q15M PRN IV DECREASED GLUCOSE; Start 10/16/18 at 22:30 Dextrose (D50w Syringe) 50 ml Q15M PRN IV DECREASED GLUCOSE; Start 10/16/18 at 22:30 Glucagon (Glucagen) 1 mg Q15M PRN IM DECREASED GLUCOSE; Start 10/16/18 at 22:30 Glucose (Glutose) 15 gm Q15M PRN BUCCAL DECREASED GLUCOSE Last administered on 10/17/18at 21:33; Admin Dose 15 GM; Start 10/16/18 at 22:30 Vancomycin HCl (Vanco Iv Per Pharmacy) VANCOMYCIN PER PHARMACY PER PROTOCOL XX ; Start 10/17/18 at 15:00 Ceftriaxone Sodium 50 ml @ 100 mls/hr Q24H IVPB Last administered on 10/17/18at 21:44; Admin Dose 100 MLS/HR; Start 10/17/18 at 19:30 Heparin Sodium (Porcine) (Heparin (1000 Units/ml)) 4,000 unit AFTER DIALYSIS CATHETER ; Start 10/18/18 at 10:30 Albumin Human 50 ml @ 100 mls/hr WITH DIALYSIS PRN IV SBP<90; Start 10/18/18 at 10:30 Miscellaneous Information (*Rx Drug Level Order Reminder*) 1 ONCE ONCE XX ; Start 10/19/18 at 05:00; Stop 10/19/18 at 05:01 Potassium Chloride (Potassium Chloride Pwd/Soln) 10 meq DAILY GTB Last administered on 10/18/18at 13:33; Admin Dose 10 MEQ; Start 10/18/18 at 12:30 Results Result Diagram: 10/18/18 0608 10/18/18 0608 Results 24 hrs Laboratory Tests Test 10/17/18 17:45 10/17/18 20:59 10/17/18 21:22 10/17/18 21:23 Bedside Glucose 187 52 L 57 L Glucose Level 59 #L Test 10/17/18 21:59 10/17/18 22:23 10/18/18 06:06 10/18/18 06:08 Bedside Glucose 103 134 Hepatitis B NEGATIVE Surface Antigen Hepatitis B POSITIVE H Surface Antibody White Blood 7.6 Count Red Blood Count 3.73 L Hemoglobin 9.1 L Hematocrit 29.5 L Mean Corpuscular 79.1 L Volume Mean Corpuscular 24.4 L Hemoglobin Mean Corpuscular 30.8 L Hemoglobin Mckayla nt Red Cell 21.3 H Distribution Width Platelet Count 313 Mean Platelet 11.1 H Volume Immature 0.900 H Granulocytes % Neutrophils % 71.5 Lymphocytes % 13.8 L Monocytes % 7.4 Eosinophils % 6.3 Basophils % 0.1 Nucleated Red 1.3 H Blood Cells % Immature 0.070 H Granulocytes # Neutrophils # 5.4 Lymphocytes # 1.1 Monocytes # 0.6 Eosinophils # 0.5 Basophils # 0.0 Nucleated Red 0.1 H Blood Cells # Sodium Level 132 L Potassium Level 3.4 L Chloride Level 93 L Carbon Dioxide 25 Level Anion Gap 14 H Blood Urea 75 H Nitrogen Creatinine 4.60 H Est Glomerular Filtrat Rate mL/min Glucose Level 170 # Calcium Level 8.3 L Phosphorus Level 3.0 Magnesium Level 2.4 Test 10/18/18 08:26 12/10/18 13:17 Bedside Glucose 179 180 DARRYL,JOSE RAUL MD Oct 18, 2018 16:59
[2018-10-18] MEDS: HEPARIN 1000 UNITS/ML 10 ML INJ CATHETER SCH (17:50)
--- NOTE | 2018-10-18 18:26 | NUR ---
EOSS: PT STABLE THROUGHOUT SHIFT, STILL COMBATIVE, SPITTING AND YELLING AT 1:1 SITTER AND TRYING TO PULL OUT PERMACATH, IV LINE, AND GTUBE. 1:[address] AT ALL TIMES. ALL DUE MEDS GIVEN, HOURLY ROUNDING COMPLETED. PT WITH VERY POOR APPETITE BUT GIVEN BOLUS GTUBE FEEDING ORDERED. WILL ENDORSE CARE OF PT TO ONCOMING SANDBLASTER SUPERVISOR RN.
[2018-10-18] MEDS: CEFTRIAXONE 1 GM/50 ML (PMX) 50 ML IVPB SCH (20:50)
[2018-10-18] MEDS: ACETAMINOPHEN 650MG/20.3ML CUP GTB PRN (20:50)
[2018-10-19 02:00] VITALS: BP 122/55; PULSE 87; RESP 18
[2018-10-19] MEDS: ACCU-CHEK XX SCH ×5 (02:00→21:00)
[2018-10-19] MEDS: LORAZEPAM 1 MG TAB GTB PRN (02:16)
[2018-10-19] MEDS: PANTOPRAZOLE (EC) 40 MG TAB PO SCH (05:18)
--- NOTE | 2018-10-19 06:24 | NUR ---
END OF SHIFT NOTE: PATIENT IS SO CONFUSED. WITH 1:1 SITTER. TRYING TO SPIT AND PUNCH SITTER AND NURSE. PULLED OUT IV ACCESS TWICE. MEDICATED WITH TYLENOL FOR PAIN. NO SIGNS OF RESPIRATORY DISTRESS. WITH FEW HOURS SLEEP. REPOSITION EVERY 2 HOURS. FALL PRECAUTION OBSERVED. ALL NEEDS ATTENDED TO.
[2018-10-19 07:21] VITALS: BP 131/60; PULSE 90; RESP 18
[2018-10-19] MEDS: LINAGLIPTIN 5 MG TABLET G-TUBE SCH (09:13)
[2018-10-19] MEDS: FOLIC ACID 1 MG TAB GTB SCH (09:23)
[2018-10-19] MEDS: SENNA TAB GTB SCH ×2 (09:23→21:51)
[2018-10-19] MEDS: FERROUS SULFATE 60 MG/ML 5ML CUP GTB SCH ×2 (09:23→21:51)
[2018-10-19] MEDS: DOCUSATE SODIUM 10 MG/ML (10ML CUP) GTB SCH (09:23)
[2018-10-19] MEDS: MULTIVIT/CA CARB/B CMPLX/FA TAB GTB SCH (09:23)
[2018-10-19] MEDS: QUETIAPINE 25 MG TAB GTB SCH ×2 (09:23→21:51)
[2018-10-19] MEDS ORDERED: [UNRECOGNIZED DRUG - OTHER] XX SCH (09:30)
--- NOTE | 2018-10-19 09:46 | NUR ---
Residual check prior to med administration, zero. Addendum: 10/19/18 at 0947 by HANSA MADDEN Amended: Links added.
[2018-10-19] MEDS: LINEZOLID 600 MG/D5W (PMX) 300 ML IVPB SCH ×2 (11:30→21:50)
[2018-10-19 14:12] VITALS: BP 134/61; PULSE 87; RESP 14
--- NOTE | 2018-10-19 14:14 | CONS ---
Date/Time of Note Date/Time of Note DATE: 10/19/18 TIME: 14:14 Assessment/Plan Assessment/Plan Chief Complaint/Hosp Course No acute changes overnight patient had been restless all night currently sleeping she is in no distress afebrile she has a sitter at bedside Temperature 98.2 pulse 90 respirations 18 blood pressure 131/60 saturation 98 on room air Indwelling: Right chest permacath Microbiology: Blood cultures since admission grew VRE repeat blood cultures negative urine culture negative Antimicrobials: Zyvox Rocephin Chest x-ray on admission revealed left lower lung field subsegmental atelectasis no focal consolidation pleural effusion or pneumothorax Physical examination: Chronically ill-appearing elderly woman who is in no distress. Head atraumatic normocephalic. Neck is supple. Chest rise s ymmetrical breath sounds diminished bases. Heart: S1-S2. Abdomen soft bowel sounds present extremities without edema Assessment: 1. Sepsis with VRE bacteremia, cannot rule out line stream infection 2. Positive urinalysis on admission, urine culture came back negative 3. End-stage renal disease, hemodialysis dependent 4. Dementia 5. Failure to thrive 6. Diabetes Plan: We are going to discontinue Rocephin, continue Zyvox order 2D echo, repeat chest x-ray in a.m. Patient may need hemodialysis catheter change Consultation Date/Type/Reason Admit Date/Time Oct 16, 2018 at 18:45 Initial Consult Date Type of Consult ID Exam/Review of Systems Vital Signs Vitals Vital Signs Date Temp Pulse Resp B/P (MAP) Pulse Ox O2 O2 Flow FiO2 Time Delivery Rate 10/19/18 98.1 87 14 134/61 98 14:12 (85) 10/19/18 Room Air 07:21 10/16/18 2 17:13 Intake and Output 10/18/18 10/18/18 10/19/18 1515:00 23:00 07:00 IntakeIntake Total 120 ml 350 ml OutputOutput Total 2400 ml BalanceBalance 120 ml -2050 ml Medications Medications Current Medications Docusate Sodium (Colace Liquid Cup) 100 mg DAILY GTB Last administered on 10/19/18at 09:23; Admin Dose 100 MG; Start 10/17/18 at 09:00 Ferrous Sulfate (Feosol Liquid Cup) 330 mg BID GTB Last administered on 10/19/18at 09:23; Admin Dose 330 MG; Start 10/16/18 at 22:00 Folic Acid (Folic Acid) 1 mg DAILY GTB Last administered on 10/19/18 09:23; Admin Dose 1 MG; Start 10/17/18 at 09:00 Insulin Detemir (Levemir) 8 units DAILY@0800 SC Last administered on 10/17/18at 08:40; Admin Dose 8 UNITS; Start 10/17/18 at 08:00; Status Hold Polyethylene Glycol (Miralax) 8.5 gm DAILY PRN GTB CONSTIPATION; Start 10/16/18 at 22:00 Multivit/Ca Carb/ B Cmplx/FA/Prenat (Kianna-Roque) 1 tab DAILY GTB Last adminis tered on 10/19/18 09:23; Admin Dose 1 TAB; Start 10/17/18 at 09:00 Quetiapine Fumarate (Seroquel) 25 mg BID GTB Last administered on 10/19/18 09:23; Admin Dose 25 MG; Start 10/16/18 at 22:00 Linagliptin (Tradjenta) 5 mg DAILY G-TUBE Last administered on 10/19/18 09:13; Admin Dose 5 MG; Start 10/17/18 at 09:00 Diagnostic Test (Pha) (Accu-Chek) 1 ea AC MEALS AND BEDTIME XX Last administered on 10/19/18 11:30; Admin Dose 1 EA; Start 10/17/18 at 07:00 Lorazepam (Ativan) 1 mg Q8H PRN GTB ANXIETY Last administered on 10/19/18 02:16; Admin Dose 1 MG; Start 10/16/18 at 22:00 Pantoprazole (Protonix Tab) 40 mg DAILY@06 PO Last administered on 10/19/18 05:18; Admin Dose 40 MG; Start 10/17/18 at 06:00 Senna (Senokot) 1 tab BID GTB Last administered on 10/19/18 09:23; Admin Dose 1 TAB; Start 10/16/18 at 22:00 Ondansetron HCl (Zofran Inj) 4 mg Q6H PRN IV NAUSEA AND/OR VOMITING; Start 10/16/18 at 22:00 Acetaminophen (Tylenol Liquid) 650 mg Q6 PRN GTB PAIN Last administered on 1 2/10/18at 20:50; Admin Dose 650 MG; Start 10/16/18 at 22:00 Miscellaneous Information (* Miscellaneous Pharmacy Order) LINZESS CAPSULE 145 ... DAILY PO ; Start 10/17/18 at 09:00; Status UNV Diagnostic Test (Pha) (Accu-Chek) 1 ea 02 XX Last administered on 10/17/18at 02:16; Admin Dose 1 EA; Start 10/17/18 at 02:00 Insulin Aspart (Novolog Insulin Pen) NOVOLOG *MODERATE* ALGORITHM WITH MEALS BEDTIME SC Last administered on 10/17/18at 17:48; Admin Dose 4 UNIT; Start 10/17/18 at 08:00; Status Hold Miscellaneous Information 1 ea NOTE XX ; Start 10/16/18 at 22:30 Glucose (Glutose) 15 gm Q15M PRN PO DECREASED GLUCOSE; Start 10/16/18 at 22:30 Glucose (Glutose) 22.5 gm Q15M PRN PO DECREASED GLUCOSE; Start 10/16/18 at 22:30 Dextrose (D50w Syringe) 25 ml Q15M PRN IV DECREASED GLUCOSE; Start 10/16/18 at 22:30 Dextrose (D50w Syringe) 50 ml Q15M PRN IV DECREASED GLUCOSE; Start 10/16/18 at 22:30 Glucagon (Glucagen) 1 mg Q15M PRN IM DECREASED GLUCOSE; Start 10/16/18 at 22:30 Glucose (Glutose) 15 gm Q15M PRN BUCCAL DECREASED GLUCOSE Last administered on 10/17/18at 21:33; Admin Dose 15 GM; Start 10/16/18 at 22:30 Ceftriaxone Sodium 50 ml @ 100 mls/hr Q24H IVPB Last administered on 10/18/18a t 20:50; Admin Dose 100 MLS/HR; Start 10/17/18 at 19:30 Heparin Sodium (Porcine) (Heparin (1000 Units/ml)) 4,000 unit AFTER DIALYSIS CATHETER Last administered on 10/18/18at 17:50; Admin Dose 4,000 UNIT; Start 10/18/18 at 10:30 Albumin Human 50 ml @ 100 mls/hr WITH DIALYSIS PRN IV SBP<90; Start 10/18/18 at 10:30 Miscellaneous Information (*Order Clarification Bulletin) WAITING FOR LINZESS VE RIFICAT... Q8H XX ; Start 10/19/18 at 09:30 Linezolid 300 ml @ 300 mls/hr Q12 IVPB Last administered on 10/19/18at 11:30; Admin Dose 300 MLS/HR; Start 10/19/18 at 11:00 Results Result Diagram: 10/18/18 0608 10/19/18 0502 Results 24 hrs Laboratory Tests Test 10/18/18 17:46 10/18/18 21:00 10/19/18 05:02 10/19/18 08:01 Bedside Glucose 147 153 154 Sodium Level 143 Potassium Level 4.4 Chloride Level 107 # Carbon Dioxide 30 Level Anion Gap 6 # Blood Urea 22 #H Nitrogen Creatinine 1.69 #H Est Glomerular Filtrat Rate mL/min Glucose Level 103 # Calcium Level 8.7 Random 10.5 Vancomycin Level Test 10/19/18 11:45 Bedside Glucose 130 PHYLICIA HOLCOMB NP Oct 19, 2018 14:14
--- NOTE | 2018-10-19 15:36 | PN ---
Date/Time of Note Date/Time of Note DATE: 10/19/18 TIME: 15:33 Assessment/Plan VTE Prophylaxis Risk score (from Ns)>0 risk: 12 SCD applied (from [facility] [place]): No SCD contraindicated: other Pharmacological prophylaxis: other Lines/Catheters IV Catheter Type (from [facility]): Saline Lock Assessment/Plan Hospital Course 83 y/o with This is an 83-year-old female with: 1. Hypotension, could be secondary to sepsis as the patient has positive bacteremia/urinary tract infection. The patient was continued on blood pressure medicines aggressively 2. Altered level of consciousness, likely secondary to metabolic encephalopathy, secondary to low blood pressures. vs Vascular dementia 3. Mild hyponatremia. 4. End-stage renal disease on hemodialysis. 5. Diabetes. 6. Dysphagia, status post G-tube feeding. 7. History of vascular dementia. 8. Hypertension. 9. History of falls. 10. Anemia. 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 ? source UA VS PERMACATH Plan -HD tmw -? Source of VRE > cathether vs UA - ? Line exchange vs new line, will send cx from permcat -cw zyvox -Appreciate vascular/ID consultation -HOLD Off BP meds -Renally dose all meds Subjective 24 Hr Interval Summary Free Text/Dictation Pt look and respond better today Exam/Review of Systems Vital Signs Vitals Vital Signs Date Temp Pulse Resp B/P (MAP) Pulse Ox O2 O2 Flow FiO2 Time Delivery Rate 10/19/18 98.1 87 14 134/61 98 14:12 (85) 10/19/18 Room Air 07:21 10/16/18 2 17:13 Intake and Output 10/18/18 10/18/18 10/19/18 1515:00 23:00 07:00 IntakeIntake Total 120 ml 350 ml OutputOutput Total 2400 ml BalanceBalance 120 ml -2050 ml Exam GENERAL: The patient calmer today HEENT: Pupils equal, round, reactive to light. Actually, patient appears dry. NECK: Supple. No JVD. HEART: Regular rate and rhythm. LUNGS: Clear to auscultation bilaterally. ABDOMEN: Soft, nontender, nondistended. The patient has a G-tube in place. EXTREMITIES: Multiple bruises present. The patient has a right chest wall Perm-A-Cath. Medications Medications Current Medications Docusate Sodium (Colace Liquid Cup) 100 mg DAILY GTB Last administered on 10/19/18 09:23; Admin Dose 100 MG; Start 10/17/18 at 09:00 Ferrous Sulfate (Feosol Liquid Cup) 330 mg BID GTB Last administered on 10/19/18 09:23; Admin Dose 330 MG; Start 10/16/18 at 22:00 Folic Acid (Folic Acid) 1 mg DAILY GTB Last administered on 10/19/18 09:23; Admin Dose 1 MG; Start 10/17/18 at 09:00 Insulin Detemir (Levemir) 8 units DAILY@0800 SC Last administered on 10/17/18 08:40; Admin Dose 8 UNITS; Start 10/17/18 at 08:00; Status Hold Polyethylene Glycol (Miralax) 8.5 gm DAILY PRN GTB CONSTIPATION; Start 10/16/18 at 22:00 Multivit/Ca Carb/ B Cmplx/FA/Prenat (Kianna-Roque) 1 tab DAILY GTB Last administered on 10/19/18 09:23; Admin Dose 1 TAB; Start 10/17/18 at 09:00 Quetiapine Fumarate (Seroquel) 25 mg BID GTB Last administered on 10/19/18 09:23; Admin Dose 25 MG; Start 10/16/18 at 22:00 Linagliptin (Tradjenta) 5 mg DAILY G-TUBE Last administered on 10/19/18 09:13; Admin Dose 5 MG; Start 10/17/18 at 09:00 Diagnostic Test (Pha) (Accu-Chek) 1 ea AC MEALS AND BEDTIME XX Last administered on 10/19/18 11:30; Admin Dose 1 EA; Start 10/17/18 at 07:00 Lorazepam (Ativan) 1 mg Q8H PRN GTB ANXIETY Last administered on 10/19/18 02:16; Admin Dose 1 MG; Start 10/16/18 at 22:00 Pantoprazole (Protonix Tab) 40 mg DAILY@06 PO Last administered on 10/19/18 05:18; Admin Dose 40 MG; Start 10/17/18 at 06:00 Senna (Senokot) 1 tab BID GTB Last administered on 10/19/18 09:23; Admin Dose 1 TAB; Start 10/16/18 at 22:00 Ondansetron HCl (Zofran Inj) 4 mg Q6H PRN IV NAUSEA AND/OR VOMITING; Start 10/16/18 at 22:00 Acetaminophen (Tylenol Liquid) 650 mg Q6 PRN GTB PAIN Last administered on 10/18/18at 20:50; Admin Dose 650 MG; Start 10/16/18 at 22:00 Miscellaneous Information (* Miscellaneous Pharmacy Order) LINZESS CAPSULE 145 ... DAILY PO ; Start 10/17/18 at 09:00; Status UNV Diagnostic Test (Pha) (Accu-Chek) 1 ea 02 XX Last administered on 10/17/18at 02:16; Admin Dose 1 EA; Start 10/17/18 at 02:00 Insulin Aspart (Novolog Insulin Pen) NOVOLOG *MODERATE* ALGORITHM WITH MEALS BEDTIME SC Last administered on 10/17/18at 17:48; Admin Dose 4 UNIT; Start 10/17/18 at 08:00; Status Hold Miscellaneous Information 1 ea NOTE XX ; Start 10/16/18 at 22:30 Glucose (Glutose) 15 gm Q15M PRN PO DECREASED GLUCOSE; Start 10/16/18 at 22:30 Glucose (Glutose) 22.5 gm Q15M PRN PO DECREASED GLUCOSE; Start 10/16/18 at 22: 30 Dextrose (D50w Syringe) 25 ml Q15M PRN IV DECREASED GLUCOSE; Start 10/16/18 at 22:30 Dextrose (D50w Syringe) 50 ml Q15M PRN IV DECREASED GLUCOSE; Start 10/16/18 at 22:30 Glucagon (Glucagen) 1 mg Q15M PRN IM DECREASED GLUCOSE; Start 10/16/18 at 22:30 Glucose (Glutose) 15 gm Q15M PRN BUCCAL DECREASED GLUCOSE Last administered on 10/17/18at 21:33; Admin Dose 15 GM; Start 10/16/18 at 22:30 Heparin Sodium (Porcine) (Heparin (1000 Units/ml)) 4,000 unit AFTER DIALYSIS CATHETER Last administered on 10/18/18at 17:50; Admin Dose 4,000 UNIT; Start 10/18/18 at 10:30 Albumin Human 50 ml @ 100 mls/hr WITH DIALYSIS PRN IV SBP<90; Start 10/18/18 at 10:30 Miscellaneous Information (*Order Clarification Bulletin) WAITING FOR LINZESS VERIFICAT... Q8H XX ; Start 10/19/18 at 09:30 Linezolid 300 ml @ 300 mls/hr Q12 IVPB Last administered on 10/19/18at 11:30; Admin Dose 300 MLS/HR; Start 10/19/18 at 11:00 Results Result Diagram: 10/18/18 0608 10/19/18 0502 Results 24 hrs Laboratory Tests Test 10/18/18 17:46 10/18/18 21:00 10/19/18 05:02 10/19/18 08:01 Bedside Glucose 147 153 154 Sodium Level 143 Potassium Level 4.4 Chloride Level 107 # Carbon Dioxide 30 Level Anion Gap 6 # Blood Urea 22 #H Nitrogen Creatinine 1.69 #H Est Glomerular Filtrat Rate mL/min Glucose Level 103 # Calcium Level 8.7 Random 10.5 Vancomycin Level Test 10/19/18 11:45 Bedside Glucose 130 JOSE RAUL ANDREWS MD Oct 19, 2018 15:36
[2018-10-19] MEDS: ACETAMINOPHEN 650MG/20.3ML CUP GTB PRN (16:59)
--- NOTE | 2018-10-19 19:29 | NUR ---
End of shift summary: Patient in stable condition .Alert x1-2 .V.S within normal limits .1:1 sitter .Feeding bolus given q 8 hrs..Patient VRE(+) Blood culture .MD notified .new orders given .Patient on contact isolation per protocol .Urine collected by I&O cath and sent to microbiology lab,pending results. Pending stool culture .Endorsed next shift RN to follow up .Planning Hemodialysis tomorrow .Called De [facility] regarding MD order .Conformation number:[phone]. Full report given to next shift RN.
[2018-10-19 19:53] VITALS: BP 145/51; PULSE 95; RESP 16
[2018-10-20] VITALS (20 sets, daily range): BP systolic 107–188; BP diastolic 51–93; PULSE 90–102; RESP 14–18
--- NOTE | 2018-10-20 00:31 | PN ---
DATE: 10/19/2018 SUBJECTIVE: Blood cultures came back as VRE bacteremia. The patient's vancomycin was discontinued. We started the patient on Zyvox. The patient is status post dialysis yesterday. PHYSICAL EXAMINATION: VITAL SIGNS: Temperature 98.2, pulse 90, respirations 19, blood pressure 121/60, saturation 98%. GENERAL: The patient is in no acute distress, comfortable, pale. HEENT: Temporal wasting. CARDIOVASCULAR: S1, S2. Right chest dialysis catheter. ABDOMEN: Soft, nontender. EXTREMITIES: No clubbing, cyanosis or edema. SKIN: The patient does have a G-tube. LABORATORY DATA: Sodium 143, potassium 4.4, chloride 107, bicarbonate 30, BUN is 22, creatinine 1.69 and glucose of 103. Last glucose level of 120, 154. Blood culture shows VRE, 2/2. Repeat blood cu ltures the following day on 10/17/2018 are negative. MEDICATIONS: 1. Linezolid IV q.12. 2. Heparin as directed. 3. Rocephin 1 gram q.24 hours. 4. Colace 100 daily. 5. Folic acid 1 mg daily. 6. Kianna-Roque 1 tab daily. 7. Tradjenta 5 mg daily. 8. Protonix 40 mg daily. 9. Accu-Chek as directed. 10. Hypoglycemia protocol as directed. 11. Ferrous sulfate 325 b.i.d. 12. MiraLax p.r.n. 13. Seroquel 25 b.i.d. 14. Ativan p.r.n. 15. Senna 1 tab b.i.d. 16. Zofran p.r.n. 17. Tylenol p.r.n. ASSESSMENT AND PLAN: This is an 83-year-old Filipina female with history of end-stage renal disease, chronic obstructive pulmonary disease, vascular dementia, cerebrovascular accident, presented with h ypotension, encephalopathy and was found to have bacteremia likely line sepsis, also urinary tract in fection. 1. Respiratory. Continue O2 support. 2. Cardiovascular. Vitals are stable. Continue heparin for deep venous thrombosis prophylaxis. 3. Diabetes mellitus. Continue above Accu-Chek. Glucose level in the low 100s. 4. Dysphagia, on oral feedings for oral gratification and bolus feedings as well. Dietary is follow ing. 5. Psychiatric disorder. Resume all medications including Seroquel. 6. Bacteremia and urinary tract infection. Continue Zyvox and Rocephin. ID is following. Repeat c ultures are so far negative. Awaiting PermCath placement by Dr. Reddy. 7. End-stage renal disease, dialysis per Dr. Juliocesar Stringer and Dr. Natarajan, clinically stable. 8. The patient with 1:1 sitter due to risk of danger to self, falls and removing lines. We will follow. Daughter is aware of plan of care. Dictated By: DYLON WALLS MD JL/NTS Conf#: [id number] DID#: [id number] CC: MIKEL REDDY MD;*EndCC*
[2018-10-20] MEDS: LORAZEPAM 1 MG TAB GTB PRN (01:43)
[2018-10-20] MEDS: ACCU-CHEK XX SCH ×5 (02:00→21:33)
[2018-10-20] MEDS: PANTOPRAZOLE (EC) 40 MG TAB PO SCH (05:51)
--- NOTE | 2018-10-20 06:46 | NUR ---
END OF SHIFT NOTE: PATIENT STILL CONFUSED, TRYING TO PULLS CHRIS CATHETER AND IV ACCES. WITH 1:1 SITTER. FALL PRECAUTION MAINTAIN. REPOSITION AND INCONTINENT CHECK EVERY 2 HOURS. TUBE FEEDING EVERY 8 HOURS AND TOLERATED WELL. ALL NEEDS ATTENDED TO.
[2018-10-20] MEDS: QUETIAPINE 25 MG TAB GTB SCH ×2 (08:36→20:18)
[2018-10-20] MEDS: FOLIC ACID 1 MG TAB GTB SCH (08:36)
[2018-10-20] MEDS: FERROUS SULFATE 60 MG/ML 5ML CUP GTB SCH ×2 (08:36→20:18)
[2018-10-20] MEDS: MULTIVIT/CA CARB/B CMPLX/FA TAB GTB SCH (08:36)
--- NOTE | 2018-10-20 08:58 | RADRPT ---
Echocardiogram Report Patient Name: MIGUEL BA Gender: Female Date: 1935 Study Date: 19-Oct-2018 Legal Instructor: Kike Henao [facility] Location: 2273 Ref. Physician: PHYLICIA HOLOCMB Quality: Adequate Procedures: Transthoracic echocardiogram with complete 2D, M-Mode, and doppler examination. Indications: r/o vegetation. 2D/M Mode Doppler Measurement Value Normal Ranges Measurement Value Normal Ranges LVIDd 2D 3.1 3.5 - 5.6 cm AV Peak Steve 1.4 m/sec LVIDs 2D 2.1 2.1 - 4.1 cm AV Peak PG 8.0 mmHg LVPWd 2D 1.1 0.6 - 1.1 cm AI Peak PG 43.0 mmHg IVSd 2D 1.3 0.6 - 1.1 cm AI Peak Steve 3.3 m/sec AoR Diam 2D 2.9 2.0 - 3.7 cm AI PHT 215.0 msec LA/Ao 2D 1 0 - 1 LVOT Peak Steve 1.1 m/sec LA Dimen 2D 2.7 2.3 - 4.0 cm LVOT Peak PG 5.0 mmHg TR Peak Steve 3.0 m/sec TR Peak PG 37.0 mmHg RVSP 40.0 mmHg RA Pressure 3.0 Findings Left Ventricle: Normal left ventricular systolic function. Normal left ventricular cavity size. Moderate concentric left ventricular hypertrophy. Ejection fraction is visually estimated at 65 %. Abnormal Diastolic Function. Right Ventricle: Normal right ventricular size. Normal right ventricular systolic function. Left Atrium: The left atrium is normal in size. Right Atrium: The right atrium is normal in size. Mitral Valve: Mitral valve leaflets appear moderately thickened. Moderate mitral annular calcification. Trace mitral regurgitation. Aortic Valve: Aortic valve not well visualized. No hemodynamically significant aortic stenosis by doppler. Aortic sclerosis without significant stenosis. Aortic cusps appear mildly calcified. Mild to moderate aortic valve regurgitation. Tricuspid Valve: Estimated peak PA systolic pressure 40 mmHg. Tricuspid valve appears moderately thickened. There is mild tricuspid regurgitation. Pulmonic Valve: Pulmonic valve not well visualized. Pericardium: Normal pericardium with no significant pericardial effusion. Aorta: Normal aortic root. IVC: Normal size and normal respiratory collapse consistent with normal right atrial pressure. Conclusions Normal left ventricular systolic function. Normal left ventricular cavity size. Moderate concentric left ventricular hypertrophy. Ejection fraction is visually estimated at 65 %. Abnormal Diastolic Function. Mitral valve leaflets appear moderately thickened. Moderate mitral annular calcification. Trace mitral regurgitation. Aortic valve not well visualized. No hemodynamically significant aortic stenosis by doppler. Aortic sclerosis without significant stenosis. Aortic cusps appear mildly calcified. Mild to moderate aortic valve regurgitation. Estimated peak PA systolic pressure 40 mmHg. Tricuspid valve appears moderately thickened. There is mild tricuspid regurgitation. Electronically Signed By: Scottie Stevens 20-Oct-2018 08:56:54 -0800 Patient Name: MIGUEL BA Study Date: 19-Oct-2018 [id number]
[2018-10-20] MEDS: SENNA TAB GTB SCH ×2 (09:29→20:18)
[2018-10-20] MEDS: LINAGLIPTIN 5 MG TABLET G-TUBE SCH (09:29)
[2018-10-20] MEDS: DOCUSATE SODIUM 10 MG/ML (10ML CUP) GTB SCH (09:29)
[2018-10-20] MEDS: LINEZOLID 600 MG/D5W (PMX) 300 ML IVPB SCH ×2 (09:30→20:18)
[2018-10-20] MEDS ORDERED: CALAMINE 170 ML LOT TOP PRN (14:00)
--- NOTE | 2018-10-20 14:00 | NUR ---
Pt completed hemodialysis well total uf removal 800 ml.
[2018-10-20] MEDS: HEPARIN 1000 UNITS/ML 10 ML INJ CATHETER SCH (14:22)
--- NOTE | 2018-10-20 15:09 | NUR ---
CM NOTE Received call from [place] at [facility] (P:[phone], F:[phone]) inquiring about pt d/c. informed [place] that there were no d/c orders as of yet. CM to update [place] when d/c orders available. Ranulfo Hatfield RN CM [phone]
--- NOTE | 2018-10-20 15:55 | CONS ---
Date/Time of Note Date/Time of Note DATE: 10/20/18 TIME: 15:53 Assessment/Plan Assessment/Plan Chief Complaint/Hosp Course 1300 Patient is awake, in hemodialysis, looks comfortable, no fevers overnight WBC 6.9 H&H 9.1 and 31.1 platelets 289 neutrophils 52.1 Indwelling: Right chest permacath, PEG Microbiology: Blood cultures since admission grew VRE repeat blood cultures negative urine culture negative Antimicrobials: Zyvox Chest x-ray on admission revealed left lower lung field subsegmental atelectasis no focal consolidation pleural effusion or pneumothorax Physical examination: Chronically ill-appearing elderly woman who is in no distress. Head atraumatic normocephalic. Neck is supple. Chest rise symmetrical breath sounds diminished bases. Heart: S1-S2. Abdomen soft bowel sounds present extremities without edema Assessment: 1. Sepsis with VRE bacteremia, can't rule out line sepsis 2. Positive urinalysis on admission, urine culture came back negative 3. End-stage renal disease, hemodialysis dependent 4. Dementia 5. Failure to thrive 6. Diabetes Plan: Patient remains stable she had blood culture drawn during hemodialysis today, repeat blood cultures had been negative, 2D echo revealed no vegetations, continue on current antibiotics Consultation Date/Type/Reason Admit Date/Time Oct 16, 2018 at 18:45 Initial Consult Date Type of Consult ID Exam/Review of Systems Vital Signs Vitals Vital Signs Date Temp Pulse Resp B/P (MAP) Pulse Ox O2 O2 Flow FiO2 Time Delivery Rate 10/20/18 96 161/68 99 Room Air 14:04 (99) 10/20/18 98.2 16 13:46 10/16/18 2 17:13 Intake and Output 10/19/18 10/19/18 10/20/18 1414:59 22:59 06:59 IntakeIntake Total 400 ml 650 ml 350 ml BalanceBalance 400 ml 650 ml 350 ml Medications Medications Current Medications Docusate Sodium (Colace Liquid Cup) 100 mg DAILY GTB Last administered on 10/20/18at 09:29; Admin Dose 100 MG; Start 10/17/18 at 09:00 Ferrous Sulfate (Feosol Liquid Cup) 330 mg BID GTB Last administered on 10/20/18at 08:36; Admin Dose 330 MG; Start 10/16/18 at 22:00 Folic Acid (Folic Acid) 1 mg DAILY GTB Last administered on 10/20/18 08:36; Admin Dose 1 MG; Start 10/17/18 at 09:00 Insulin Detemir (Levemir) 8 units DAILY@0800 SC Last administered on 10/17/18 08:40; Admin Dose 8 UNITS; Start 10/17/18 at 08:00; Status Hold Polyethylene Glycol (Miralax) 8.5 gm DAILY PRN GTB CONSTIPATION; Start 10/16/18 at 22:00 Multivit/Ca Carb/ B Cmplx/FA/Prenat (Kianna-Roque) 1 tab DAILY GTB Last administered on 10/20/18 08:36; Admin Dose 1 TAB; Start 10/17/18 at 09:00 Quetiapine Fumarate (Seroquel) 25 mg BID GTB Last administered on 10/20/18 08:36; Admin Dose 25 MG; Start 10/16/18 at 22:00 Linagliptin (Tradjenta) 5 mg DAILY G-TUBE Last administered on 10/20/18 09:29; Admin Dose 5 MG; Start 10/17/18 at 09:00 Diagnostic Test (Pha) (Accu-Chek) 1 ea AC MEALS AND BEDTIME XX Last administered on 10/19/18 17:06; Admin Dose 1 EA; Start 10/17/18 at 07:00 Lorazepam (Ativan) 1 mg Q8H PRN GTB ANXIETY Last administered on 10/20/18 01:43; Admin Dose 1 MG; Start 10/16/18 at 22:00 Pantoprazole (Protonix Tab) 40 mg DAILY@06 PO Last administered on 10/20/18 05:51; Admin Dose 40 MG; Start 10/17/18 at 06:00 Senna (Senokot) 1 tab BID GTB Last administered on 10/20/18 09:29; Admin Dose 1 TAB; Start 10/16/18 at 22:00 Ondansetron HCl (Zofran Inj) 4 mg Q6H PRN IV NAUSEA AND/OR VOMITING; Start 10/16/18 at 22:00 Acetaminophen (Tylenol Liquid) 650 mg Q6 PRN GTB PAIN Last administered on 10/19/18 16:59; Admin Dose 650 MG; Start 10/16/18 at 22:00 Diagnostic Test (Pha) (Accu-Chek) 1 ea 02 XX Last administered on 10/17/18at 02:16; Admin Dose 1 EA; Start 10/17/18 at 02:00 Insulin Aspart (Novolog Insulin Pen) NOVOLOG *MODERATE* ALGORITHM WITH MEALS BEDTIME SC Last administered on 10/17/18at 17:48; Admin Dose 4 UNIT; Start 10/17/18 at 08:00; Status Hold Miscellaneous Information 1 ea NOTE XX ; Start 10/16/18 at 22:30 Glucose (Glutose) 15 gm Q15M PRN PO DECREASED GLUCOSE; Start 10/16/18 at 22:30 Glucose (Glutose) 22.5 gm Q15M PRN PO DECREASED GLUCOSE; Start 10/16/18 at 22:30 Dextrose (D50w Syringe) 25 ml Q15M PRN IV DECREASED GLUCOSE; Start 10/16/18 at 22:30 Dextrose (D50w Syringe) 50 ml Q15M PRN IV DECREASED GLUCOSE; Start 10/16/18 at 22:30 Glucagon (Glucagen) 1 mg Q15M PRN IM DECREASED GLUCOSE; Start 10/16/18 at 22:30 Glucose (Glutose) 15 gm Q15M PRN BUCCAL DECREASED GLUCOSE Last administered on 10/17/18at 21:33; Admin Dose 15 GM; Start 10/16/18 at 22:30 Heparin Sodium (Porcine) (Heparin (1000 Units/ml)) 4,000 unit AFTER DIALYSIS CATHETER Last administered on 10/20/18at 14:22; Admin Dose 4,000 UNIT; Start 10/18/18 at 10:30 Albumin Human 50 ml @ 100 mls/hr WITH DIALYSIS PRN IV SBP<90; Start 10/18/18 at 10:30 Linezolid 300 ml @ 300 mls/hr Q12 IVPB Last administered on 10/20/18at 09:30; Admin Dose 300 MLS/HR; Start 10/19/18 at 11:00 Hydroxyzine HCl (Atarax) 25 mg Q6H PRN GTB ITCHING; Start 10/20/18 at 14:00 Calamine (Calamine Lotion) 1 applic BID PRN TOP itching; Start 10/20/18 at 14:00 Results Result Diagram: 10/20/18 0435 10/20/18 0435 Results 24 hrs Laboratory Tests Test 10/19/18 17:06 10/19/18 22:00 10/20/18 04:35 10/20/18 08:23 Bedside Glucose 179 109 152 White Blood 6.9 Count Red Blood Count 3.79 L Hemoglobin 9.1 L Hematocrit 31.1 L Mean Corpuscular 82.1 Volume Mean Corpuscular 24.0 L Hemoglobin Mean Corpuscular 29.3 L Hemoglobin Mckayla nt Red Cell 21.7 H Distribution Width Platelet Count 289 Mean Platelet 10.9 H Volume Immature 0.600 H Granulocytes % Neutrophils % 52.1 Lymphocytes % 20.5 Monocytes % 12.0 H Eosinophils % 14.4 H Basophils % 0.4 Nucleated Red 0.6 H Blood Cells % Immature 0.040 H Granulocytes # Neutrophils # 3.6 Lymphocytes # 1.4 Monocytes # 0.8 Eosinophils # 1.0 H Basophils # 0.0 Nucleated Red 0.0 Blood Cells # Sodium Level 144 Potassium Level 4.0 Chloride Level 105 Carbon Dioxide 31 Level Anion Gap 8 Blood Urea 43 #H Nitrogen Creatinine 2.27 H Est Glomerular Filtrat Rate mL/min Glucose Level 83 Calcium Level 8.8 Phosphorus Level 2.2 L Magnesium Level 2.4 Test 10/20/18 12:13 Bedside Glucose 127 PHYLICIA HOLCOMB NP Oct 20, 2018 15:55
--- NOTE | 2018-10-20 18:46 | CONS ---
Date/Time of Note Date/Time of Note DATE: 10/20/18 TIME: 18:44 Assessment/Plan Assessment/Plan Chief Complaint/Hosp Course 83 y/o with This is an 83-year-old female with: 1. Hypotension, could be secondary to sepsis as the patient has positive bacteremia/urinary tract infection. The patient was continued on blood pressure medicines aggressively 2. Altered level of consciousness, likely secondary to metabolic encephalopathy, secondary to low blood pressures. vs Vascular dementia 3. Mild hyponatremia. 4. End-stage renal disease on hemodialysis. 5. Diabetes. 6. Dysphagia, status post G-tube feeding. 7. History of vascular dementia. 8. Hypertension. 9. History of falls. 10. Anemia. 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 ? source UA VS PERMACATH Plan -HD TOday -Acute blood cultures have been negative even though patient was not treated for VRE before and blood cultures from permacath pending UA\CX have been negative toO, she does not look septic normal white count no fevers we will check with ID if you still have permacath needs to be exchanged or removed -cw zyvox -Appreciate vascular/ID consultation -Can resume some bp meds after HD -Renally dose all meds Consultation Date/Type/Reason Admit Date/Time Oct 16, 2018 at 18:45 Initial Consult Date 24 HR Interval Summary Free Text/Dictation HD Today Appears much more calmer Exam/Review of Systems Vital Signs Vitals Vital Signs Date Temp Pulse Resp B/P (MAP) Pulse Ox O2 O2 Flow FiO2 Time Delivery Rate 10/20/18 96 161/68 99 Room Air 14:04 (99) 10/20/18 98.2 16 13:46 10/16/18 2 17:13 Intake and Output 10/19/18 10/19/18 10/20/18 1414:59 22:59 06:59 IntakeIntake Total 400 ml 650 ml 350 ml BalanceBalance 400 ml 650 ml 350 ml Exam GENERAL: The patient calmer today HEENT: Pupils equal, round, reactive to light. NECK: Supple. No JVD. HEART: Regular rate and rhythm. LUNGS: Clear to auscultation bilaterally. ABDOMEN: Soft, nontender, nondistended. The patient has a G-tube in place. EXTREMITIES: Multiple bruises present. The patient has a right chest wall Perm-A-Cath. Medications Medications Current Medications Docusate Sodium (Colace Liquid Cup) 100 mg DAILY GTB Last administered on 10/20/18 09:29; Admin Dose 100 MG; Start 10/17/18 at 09:00 Ferrous Sulfate (Feosol Liquid Cup) 330 mg BID GTB Last administered on 10/20/18 08:36; Admin Dose 330 MG; Start 10/16/18 at 22:00 Folic Acid (Folic Acid) 1 mg DAILY GTB Last administered on 10/20/18 08:36; Admin Dose 1 MG; Start 10/17/18 at 09:00 Insulin Detemir (Levemir) 8 units DAILY@0800 SC Last administered on 10/17/18 08:40; Admin Dose 8 UNITS; Start 10/17/18 at 08:00; Status Hold Polyethylene Glycol (Miralax) 8.5 gm DAILY PRN GTB CONSTIPATION; Start 10/16/18 at 22:00 Multivit/Ca Carb/ B Cmplx/FA/Prenat (Kianna-Roque) 1 tab DAILY GTB Last administered on 10/20/18 08:36; Admin Dose 1 TAB; Start 10/17/18 at 09:00 Quetiapine Fumarate (Seroquel) 25 mg BID GTB Last administered on 10/20/18 08:36; Admin Dose 25 MG; Start 10/16/18 at 22:00 Linagliptin (Tradjenta) 5 mg DAILY G-TUBE Last administered on 10/20/18 09:29; Admin Dose 5 MG; Start 10/17/18 at 09:00 Diagnostic Test (Pha) (Accu-Chek) 1 ea AC MEALS AND BEDTIME XX Last administered on 10/19/18 17:06; Admin Dose 1 EA; Start 10/17/18 at 07:00 Lorazepam (Ativan) 1 mg Q8H PRN GTB ANXIETY Last administered on 10/20/18 01: 43; Admin Dose 1 MG; Start 10/16/18 at 22:00 Pantoprazole (Protonix Tab) 40 mg DAILY@06 PO Last administered on 10/20/18 05:51; Admin Dose 40 MG; Start 10/17/18 at 06:00 Senna (Senokot) 1 tab BID GTB Last administered on 10/20/18 09:29; Admin Dose 1 TAB; Start 10/16/18 at 22:00 Ondansetron HCl (Zofran Inj) 4 mg Q6H PRN IV NAUSEA AND/OR VOMITING; Start 10/16/18 at 22:00 Acetaminophen (Tylenol Liquid) 650 mg Q6 PRN GTB PAIN Last administered on 10/19/18at 16:59; Admin Dose 650 MG; Start 10/16/18 at 22:00 Diagnostic Test (Pha) (Accu-Chek) 1 ea 02 XX Last administered on 10/17/18at 02:16; Admin Dose 1 EA; Start 10/17/18 at 02:00 Insulin Aspart (Novolog Insulin Pen) NOVOLOG *MODERATE* ALGORITHM WITH MEALS BEDTIME SC Last administered on 10/17/18at 17:48; Admin Dose 4 UNIT; Start 10/17/18 at 08:00; Status Hold Miscellaneous Information 1 ea NOTE XX ; Start 10/16/18 at 22:30 Glucose (Glutose) 15 gm Q15M PRN PO DECREASED GLUCOSE; Start 10/16/18 at 22:30 Glucose (Glutose) 22.5 gm Q15M PRN PO DECREASED GLUCOSE; Start 10/16/18 at 22:30 Dextrose (D50w Syringe) 25 ml Q15M PRN IV DECREASED GLUCOSE; Start 10/16/18 at 22:30 Dextrose (D50w Syringe) 50 ml Q15M PRN IV DECREASED GLUCOSE; Start 10/16/18 at 22:30 Glucagon (Glucagen) 1 mg Q15M PRN IM DECREASED GLUCOSE; Start 10/16/18 at 22:30 Glucose (Glutose) 15 gm Q15M PRN BUCCAL DECREASED GLUCOSE Last administered on 10/17/18at 21:33; Admin Dose 15 GM; Start 10/16/18 at 22:30 Heparin Sodium (Porcine) (Heparin (1000 Units/ml)) 4,000 unit AFTER DIALYSIS CATHETER Last administered on 10/20/18at 14:22; Admin Dose 4,000 UNIT; Start 10/18/18 at 10:30 Albumin Human 50 ml @ 100 mls/hr WITH DIALYSIS PRN IV SBP<90; Start 10/18/18 at 10:30 Linezolid 300 ml @ 300 mls/hr Q12 IVPB Last administered on 10/20/18at 09:30; Admin Dose 300 MLS/HR; Start 10/19/18 at 11:00 Hydroxyzine HCl (Atarax) 25 mg Q6H PRN GTB ITCHING; Start 10/20/18 at 14:00 Calamine (Calamine Lotion) 1 applic BID PRN TOP itching; Start 10/20/18 at 14:00 Results Result Diagram: 10/20/18 0435 10/20/18 0435 Results 24 hrs Laboratory Tests Test 10/19/18 22:00 10/20/18 04:35 10/20/18 08:23 10/20/18 12:13 Bedside Glucose 109 152 127 White Blood 6.9 Count Red Blood Count 3.79 L Hemoglobin 9.1 L Hematocrit 31.1 L Mean Corpuscular 82.1 Volume Mean Corpuscular 24.0 L Hemoglobin Mean Corpuscular 29.3 L Hemoglobin Mckayla nt Red Cell 21.7 H Distribution Width Platelet Count 289 Mean Platelet 10.9 H Volume Immature 0.600 H Granulocytes % Neutrophils % 52.1 Lymphocytes % 20.5 Monocytes % 12.0 H Eosinophils % 14.4 H Basophils % 0.4 Nucleated Red 0.6 H Blood Cells % Immature 0.040 H Granulocytes # Neutrophils # 3.6 Lymphocytes # 1.4 Monocytes # 0.8 Eosinophils # 1.0 H Basophils # 0.0 Nucleated Red 0.0 Blood Cells # Sodium Level 144 Potassium Level 4.0 Chloride Level 105 Carbon Dioxide 31 Level Anion Gap 8 Blood Urea 43 #H Nitrogen Creatinine 2.27 H Est Glomerular Filtrat Rate mL/min Glucose Level 83 Calcium Level 8.8 Phosphorus Level 2.2 L Magnesium Level 2.4 Test 10/20/18 17:12 Bedside Glucose 193 JOSE RAUL ANDREWS MD Oct 20, 2018 18:46
--- NOTE | 2018-10-20 18:53 | NUR ---
END OF SHIFT Patient alert, confused. no acute distress. Still with episode of trying to pull out IV and dialysis access, will continue 1;1 sitter. Needs attended. Due medication given, tolerated well. Fed patient with maximum encouragement. Will continue to monitor.
[2018-10-20] MEDS: AMLODIPINE 5 MG TAB GTB SCH (20:18)
--- NOTE | 2018-10-20 20:18 | PN ---
DATE: 10/20/2018 SUBJECTIVE: The patient seen. The patient is alert, comfortable, in no distress. The patient does have VRE bacteremia. Repeat blood cultures are negative. Urine culture is negative as well. PHYSICAL EXAMINATION: VITAL SIGNS: Temperature 98.2, pulse 96, respirations 16, blood pressure 161/68, saturation 99% on r oom air. GENERAL: No acute distress, the patient is pale, temporal wasting, frail. HEENT: Normocephalic, atraumatic. CARDIOVASCULAR: S1, S2, regular rate. LUNGS: Clear. ABDOMEN: Soft, G-tube in place. EXTREMITIES: No clubbing, cyanosis, or edema. LABORATORY DATA: White count is 6.9, hemoglobin 9.1, hematocrit 31, platelet count 289, neutrophils 52%, lymphs 21%. Chemistry: Sodium is 144, potassium 4.0, chloride 105, bicarbonate 31, BUN 42, cre atinine 2.27, glucose 83. Urinalysis showed +2 leukocyte esterase. Cultures: Only blood cultures i nitially showed VRE. CURRENT MEDICATIONS: Include: 1. Atarax. 2. Calamine. 3. Linezolid. 4. Heparin. 5. Albumin. 6. Colace. 7. Folic acid. 8. Multivitamin. 9. Tradjenta. 10. Accu-Chek. 11. Protonix. 12. Hypoglycemia protocol. 13. Ferrous sulfate. 14. MiraLax. 15. Seroquel. 16. Ativan. 17. Senna. 18. Zofran p.r.n. 19. Tylenol p.r.n. ASSESSMENT AND PLAN: This is an 83-year-old [place] female with history of end-stage renal disease, chronic obstructive pulmonary disease, vascular dementia, CVA, who presented with hypotension and en cephalopathy, was found to have bacteremia possibly due to line sepsis versus urinary tract infection versus other. 1. Respiratory. Continue O2 support. 2. Cardiovascular. Blood pressure is now back up. May start some of her meds again as her infectio n is under control. 3. Diabetes mellitus. Continue Accu-Chek. 4. Dysphagia. Continue G-tube feeding and feeding for gratification. 5. Psychiatric disorder. Resume Seroquel. 6. Bacteremia and urinary tract infection. Remains on Zyvox. ID to decide on the type and duration of antibiotics. 7. End-stage renal disease, dialysis per nephrology. 8. Continue 1:1 sitter as the patient is a danger to self with risk of fall, clinically stable. DISPOSITION: Per ID. Back to group home facility. Case discussed briefly with egg caser. We will follow. Dictated By: DYLON HULL/MADAN Conf#: [id number] DID#: [id number]
[2018-10-20] MEDS ORDERED: INSULIN ASPART [NOVOLOG] 3 ML PEN SC ONE (22:30)
--- NOTE | 2018-10-20 23:10 | NUR ---
RN NOTE called Dr Perez at 2223 for blood glucose results. relayed BS results 193 at 1712pm and [address] Perez said he isnt worried about the 193 result. no new orders, but for 226, to give 1 time Novolog 4 units. at 2240, patient was refusing blood glucose check. was able to take blood glucose at 2301pm, with result of 153. novolog no longer given.
[2018-10-21] MEDS: LORAZEPAM 1 MG TAB GTB PRN (01:44)
[2018-10-21] MEDS: ACCU-CHEK XX SCH ×5 (01:44→21:37)
[2018-10-21 01:49] VITALS: BP 184/81; PULSE 96; RESP 18
[2018-10-21] MEDS: LANSOPRAZOLE 30 MG CAP GTB SCH (06:24)
--- NOTE | 2018-10-21 07:28 | NUR ---
EOSS patient alert x 1., confused. 1:1 sitter maintained. blood glucose monitored. encouraged food intake, patient refused. IV antibiotic given as ordered, denies pain. needs attended. patient did not sleep at night. ativan 1mg given prn as ordered. will continue to monitor
[2018-10-21 08:17] VITALS: BP 144/73; PULSE 92; RESP 18
--- NOTE | 2018-10-21 08:35 | NUR ---
YOSVANY Ruvalcaba, aware of abnormal preliminary blood culture result.
[2018-10-21] MEDS ORDERED: METOPROLOL 50 MG TAB GTB SCH (09:00)
[2018-10-21] MEDS: FERROUS SULFATE 60 MG/ML 5ML CUP GTB SCH ×2 (09:19→21:09)
[2018-10-21] MEDS: MULTIVIT/CA CARB/B CMPLX/FA TAB GTB SCH (09:19)
[2018-10-21] MEDS: DOCUSATE SODIUM 10 MG/ML (10ML CUP) GTB SCH (09:19)
[2018-10-21] MEDS: AMLODIPINE 5 MG TAB GTB SCH ×2 (09:20→21:11)
[2018-10-21] MEDS: FOLIC ACID 1 MG TAB GTB SCH (09:20)
[2018-10-21] MEDS: SENNA TAB GTB SCH ×2 (09:20→21:10)
[2018-10-21] MEDS: QUETIAPINE 25 MG TAB GTB SCH ×2 (09:21→21:11)
[2018-10-21] MEDS: hydrOXYzine HCL 25 MG TAB GTB PRN (09:27)
[2018-10-21] MEDS: LINAGLIPTIN 5 MG TABLET G-TUBE SCH (09:27)
--- NOTE | 2018-10-21 10:17 | CONS ---
Date/Time of Note Date/Time of Note DATE: 10/21/18 TIME: 10:15 Assessment/Plan Assessment/Plan Chief Complaint/Hosp Course No acute events, looks comfortable, afebrile Indwelling: Right chest permacath, PEG Microbiology: Blood cultures since admission grew VRE, repeat blood cultures from HD cath + Antimicrobials: Zyvox Chest x-ray on admission revealed left lower lung field subsegmental atelectasis no focal consolidation pleural effusion or pneumothorax Physical examination: Chronically ill-appearing elderly woman who is in no distress. Head atraumatic normocephalic. Neck is supple. Chest rise symmetri brittany breath sounds diminished bases. Heart: S1-S2. Abdomen soft bowel sounds present extremities without edema Assessment: 1. Sepsis with VRE bacteremia 2 to infected Pcath 2. Positive urinalysis on admission, urine culture came back negative 3. End-stage renal disease, hemodialysis dependent 4. Dementia 5. Failure to thrive 6. Diabetes Plan: Patient remains stable, repeat bld cx drawn form HD cath yesterday +, consider dc pcath with line holiday DW Dr Natarajan Consultation Date/Type/Reason Admit Date/Time Oct 16, 2018 at 18:45 Initial Consult Date Type of Consult ID Exam/Review of Systems Vital Signs Vitals Vital Signs Date Temp Pulse Resp B/P (MAP) Pulse Ox O2 O2 Flow FiO2 Time Delivery Rate 10/21/18 98.0 92 18 144/73 99 Room Air 08:17 (96) Intake and Output 10/20/18 10/20/18 10/21/18 1515:00 23:00 07:00 IntakeIntake Total 300 ml 300 ml 60 ml OutputOutput Total 400 ml BalanceBalance -100 ml 300 ml 60 ml Medications Medications Current Medications Docusate Sodium (Colace Liquid Cup) 100 mg DAILY GTB Last administered on 10/21/18at 09:19; Admin Dose 100 MG; Start 10/17/18 at 09:00 Ferrous Sulfate (Feosol Liquid Cup) 330 mg BID GTB Last administered on 10/21/18at 09:19; Admin Dose 330 MG; Start 10/16/18 at 22:00 Folic Acid (Folic Acid) 1 mg DAILY GTB Last administered on 10/21/18at 09:20; Admin Dose 1 MG; Start 10/17/18 at 09:00 Insulin Detemir (Levemir) 8 units DAILY@0800 SC Last administered on 10/17/18 08:40; Admin Dose 8 UNITS; Start 10/17/18 at 08:00; Status Hold Polyethylene Glycol (Miralax) 8.5 gm DAILY PRN GTB CONSTIPATION; Start 10/16/18 at 22:00 Multivit/Ca Carb/ B Cmplx/FA/Prenat (Kianna-Roque) 1 tab DAILY GTB Last administered on 10/21/18 09:19; Admin Dose 1 TAB; Start 10/17/18 at 09:00 Quetiapine Fumarate (Seroquel) 25 mg BID GTB Last administered on 10/21/18 09:21; Admin Dose 25 MG; Start 10/16/18 at 22:00 Linagliptin (Tradjenta) 5 mg DAILY G-TUBE Last administered on 10/21/18 09:27; Admin Dose 5 MG; Start 10/17/18 at 09:00 Diagnostic Test (Pha) (Accu-Chek) 1 ea AC MEALS AND BEDTIME XX Last administered on 10/20/18 21:33; Admin Dose 1 EA; Start 10/17/18 at 07:00 Lorazepam (Ativan) 1 mg Q8H PRN GTB ANXIETY Last administered on 10/21/18 01:44; Admin Dose 1 MG; Start 10/16/18 at 22:00 Senna (Senokot) 1 tab BID GTB Last administered on 10/21/18 09:20; Admin Dose 1 TAB; Start 10/16/18 at 22:00 Ondansetron HCl (Zofran Inj) 4 mg Q6H PRN IV NAUSEA AND/OR VOMITING; Start 10/16/18 at 22:00 Acetaminophen (Tylenol Liquid) 650 mg Q6 PRN GTB PAIN Last administered on 10/19/18 16:59; Admin Dose 650 MG; Start 10/16/18 at 22:00 Diagnostic Test (Pha) (Accu-Chek) 1 ea 02 XX Last administered on 10/17/18 02:16; Admin Dose 1 EA; Start 10/17/18 at 02:00 Insulin Aspart (Novolog Insulin Pen) NOVOLOG *MODERATE* ALGORITHM WITH MEALS BEDTIME SC Last administered on 10/17/18 17:48; Admin Dose 4 UNIT; Start 10/17/18 at 08:00; Status Hold Miscellaneous Information 1 ea NOTE XX ; Start 10/16/18 at 22:30 Glucose (Glutose) 15 gm Q15M PRN PO DECREASED GLUCOSE; Start 10/16/18 at 22:30 Glucose (Glutose) 22.5 gm Q15M PRN PO DECREASED GLUCOSE; Start 10/16/18 at 22:30 Dextrose (D50w Syringe) 25 ml Q15M PRN IV DECREASED GLUCOSE; Start 10/16/18 at 22:30 Dextrose (D50w Syringe) 50 ml Q15M PRN IV DECREASED GLUCOSE; Start 10/16/18 at 22:30 Glucagon (Glucagen) 1 mg Q15M PRN IM DECREASED GLUCOSE; Start 10/16/18 at 22:30 Glucose (Glutose) 15 gm Q15M PRN BUCCAL DECREASED GLUCOSE Last administered on 10/17/18at 21:33; Admin Dose 15 GM; Start 10/16/18 at 22:30 Heparin Sodium (Porcine) (Heparin (1000 Units/ml)) 4,000 unit AFTER DIALYSIS CATHETER Last administered on 10/20/18at 14:22; Admin Dose 4,000 UNIT; Start 10/18/18 at 10:30 Albumin Human 50 ml @ 100 mls/hr WITH DIALYSIS PRN IV SBP<90; Start 10/18/18 at 10:30 Linezolid 300 ml @ 300 mls/hr Q12 IVPB Last administered on 10/20/18at 20:18; Admin Dose 300 MLS/HR; Start 10/19/18 at 11:00 Hydroxyzine HCl (Atarax) 25 mg Q6H PRN GTB ITCHING Last administered on 10/21/18at 09:27; Admin Dose 25 MG; Start 10/20/18 at 14:00 Calamine (Calamine Lotion) 1 applic BID PRN TOP itching; Start 10/20/18 at 14:00 Amlodipine Besylate (Norvasc) 5 mg BID GTB Last administered on 10/21/18at 09:20; Admin Dose 5 MG; Start 10/20/18 at 21:00 Hydralazine HCl (Apresoline) 25 mg DAILY GTB Last administered on 10/21/18at 09:27; Admin Dose 25 MG; Start 10/20/18 at 19:30 Metoprolol Tartrate (Lopressor) 50 mg DAILY GTB Last administered on 10/21/18at 09:20; Admin Dose 50 MG; Start 10/21/18 at 09:00 Lansoprazole (Prevacid) 30 mg DAILY@06 GTB Last administered on 10/21/18at 06:24; Admin Dose 30 MG; Start 10/21/18 at 06:00 Results Result Diagram: 10/20/18 0435 10/20/18 0435 Results 24 hrs Laboratory Tests Test 10/20/18 12:13 10/20/18 17:12 10/20/18 21:28 10/20/18 23:01 Bedside Glucose 127 193 226 H 153 Test 10/21/18 06:31 10/21/18 08:11 10/21/18 09:26 Bedside Glucose 114 142 163 PHYLICIA HOLCOMB NP Oct 21, 2018 10:17
[2018-10-21] MEDS: LINEZOLID 600 MG/D5W (PMX) 300 ML IVPB SCH ×2 (11:42→21:54)
[2018-10-21 13:10] VITALS: BP 167/72; PULSE 79; RESP 20
--- NOTE | 2018-10-21 16:00 | PN ---
DATE: 10/21/2018 SUBJECTIVE: Unfortunately, repeat blood cultures which were drawn on 10/20/2018 does report a gram-p ositive cocci in pairs. Due to that, we will have to decide whether to remove the patient's Perm-A-C ath. Case to be discussed with and Vascular, ID and Nephrology. Case discussed with the family at [facility]. The patient overall clinically looks much better. She is on the appropriate antibiotics and responding well, but unfortunately again repeat blood cultures are positive. OBJECTIVE: VITAL SIGNS: Blood pressure is 167/72, pulse 79, respirations 20, temperature 97.7, saturation 100%. GENERAL: No acute distress. The patient is frail, pale. Temporal wasting. BMI 17.2. CARDIOVASCULAR: S1, S2. LUNGS: Right chest Perm-A-Cath. ABDOMEN: Soft. G-tube in place. EXTREMITIES: No clubbing, cyanosis or edema. The patient is very thin. LABORATORY DATA: No new labs today. Her glucose level 197, 162 and 142. The patient's blood cultur es again showed gram-positive cocci in pairs. Urine culture on 10/17/2018 and 10/19/2018 negative. MEDICATIONS: 1. Lopressor 50 daily. We can make it twice a day. 2. Prevacid 20 mg daily. 3. Norvasc 5 mg b.i.d. 4. Hydralazine 25 daily. We can change the frequency. 5. p.r.n. 6. Calamine as directed. 7. Linezolid IV q.12. 8. Heparin as directed. 9. Albumin as directed. 10. Colace as directed. 11. Folic acid as directed. 12. Kianna-Roque as directed. 13. Tradjenta 5 mg daily. 14. Accu-Chek q.a.c. and at bedtime. 15. Hypoglycemia protocol. 16. Protonix 40 b.i.d. 17. MiraLax p.r.n. 18. Seroquel 25 b.i.d. 19. Ativan 1 mg q.8h. p.r.n. 20. Senna. 21. Zofran. 22. Tylenol p.r.n. ASSESSMENT AND PLAN: This is an 83-year-old [place] female with history of end-stage renal disease, chronic obstructive pulmonary disease, vascular dementia, cerebrovascular accident, presented with h ypotension, encephalopathy, was found to have bacteremia, likely due to line sepsis versus urinary tr act infection. 1. Respiratory. O2 support as needed. 2. Cardiovascular. Blood pressure is back up. Continue to titrate medications up. 3. Diabetes mellitus. Continue Accu-Chek, glucose level in the 100s. 4. Dysphagia. Continue G-tube feeding and oral feedings for oral gratification. 5. Psychiatric disorder including Seroquel. 6. Bacteremia, likely due to line infection, likely we will need to remove the patient's Perm-A-Cath and have a line holiday. 7. End-stage renal disease, dialysis per nephrology. 8. Continue 1:1 sitter due to the risk of fall, which happened previously. 9. Anemia. No need for transfusion. Epogen p.r.n. 10. Repeat blood cultures tomorrow. Again, we will discuss with the team regarding removal of the l ine. We will follow. Dictated By: DYLON HULL/MADAN Conf#: [id number] DID#: [id number]
--- NOTE | 2018-10-21 18:33 | CONS ---
Date/Time of Note Date/Time of Note DATE: 10/21/18 TIME: 18:31 Assessment/Plan Assessment/Plan Chief Complaint/Hosp Course 83 y/o with This is an 83-year-old female with: 1. Hypotension, could be secondary to sepsis as the patient has positive bacteremia/urinary tract infection. The patient was continued on blood pressure medicines aggressively 2. Altered level of consciousness, likely secondary to metabolic encephalopathy, secondary to low blood pressures. vs Vascular dementia 3. Mild hyponatremia. 4. End-stage renal disease on hemodialysis. 5. Diabetes. 6. Dysphagia, status post G-tube feeding. 7. History of vascular dementia. 8. Hypertension. 9. History of falls. 10. Anemia. 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 ? 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 surface fabricator and then remove the permacath -cw zyvox -Appreciate vascular/ID consultation -bp medications have been resumed -Renally dose all meds Consultation Date/Type/Reason Admit Date/Time Oct 16, 2018 at 18:45 Initial Consult Date 24 HR Interval Summary Free Text/Dictation Culture positive from permacath yesterday No new complaints Exam/Review of Systems Vital Signs Vitals Vital Signs Date Temp Pulse Resp B/P (MAP) Pulse Ox O2 O2 Flow FiO2 Time Delivery Rate 10/21/18 97.7 79 20 167/72 100 Room Air 13:10 (103) Intake and Output 10/20/18 10/20/18 10/21/18 1515:00 23:00 07:00 IntakeIntake Total 300 ml 300 ml 60 ml OutputOutput Total 400 ml BalanceBalance -100 ml 300 ml 60 ml Exam GENERAL: The patient calmer today HEENT: Pupils equal, round, reactive to light. NECK: Supple. No JVD. HEART: Regular rate and rhythm. LUNGS: Clear to auscultation bilaterally. ABDOMEN: Soft, nontender, nondistended. The patient has a G-tube in place. EXTREMITIES: Multiple bruises present. The patient has a right chest wall Perm-A-Cath. Medications Medications Current Medications Docusate Sodium (Colace Liquid Cup) 100 mg DAILY GTB Last administered on 10/21/18at 09:19; Admin Dose 100 MG; Start 10/17/18 at 09:00 Ferrous Sulfate (Feosol Liquid Cup) 330 mg BID GTB Last administered on 10/21/18 09:19; Admin Dose 330 MG; Start 10/16/18 at 22:00 Folic Acid (Folic Acid) 1 mg DAILY GTB Last administered on 10/21/18 09:20; Admin Dose 1 MG; Start 10/17/18 at 09:00 Insulin Detemir (Levemir) 8 units DAILY@0800 SC Last administered on 10/17/18 08:40; Admin Dose 8 UNITS; Start 10/17/18 at 08:00; Status Hold Polyethylene Glycol (Miralax) 8.5 gm DAILY PRN GTB CONSTIPATION; Start 10/16/18 at 22:00 Multivit/Ca Carb/ B Cmplx/FA/Prenat (Kianna-Roque) 1 tab DAILY GTB Last administered on 10/21/18 09:19; Admin Dose 1 TAB; Start 10/17/18 at 09:00 Quetiapine Fumarate (Seroquel) 25 mg BID GTB Last administered on 10/21/18 09:21; Admin Dose 25 MG; Start 10/16/18 at 22:00 Linagliptin (Tradjenta) 5 mg DAILY G-TUBE Last administered on 10/21/18 09:27; Admin Dose 5 MG; Start 10/17/18 at 09:00 Diagnostic Test (Pha) (Accu-Chek) 1 ea AC MEALS AND BEDTIME XX Last administered on 10/20/18 21:33; Admin Dose 1 EA; Start 10/17/18 at 07:00 Lorazepam (Ativan) 1 mg Q8H PRN GTB ANXIETY Last administered on 10/21/18 01:44; Admin Dose 1 MG; Start 10/16/18 at 22:00 Senna (Senokot) 1 tab BID GTB Last administered on 10/21/18 09:20; Admin Dose 1 TAB; Start 10/16/18 at 22:00 Ondansetron HCl (Zofran Inj) 4 mg Q6H PRN IV NAUSEA AND/OR VOMITING; Start 10/16/18 at 22:00 Acetaminophen (Tylenol Liquid) 650 mg Q6 PRN GTB PAIN Last administered on 10/19/18 16:59; Admin Dose 650 MG; Start 10/16/18 at 22:00 Diagnostic Test (Pha) (Accu-Chek) 1 ea 02 XX Last administered on 10/17/18at 02:16; Admin Dose 1 EA; Start 10/17/18 at 02:00 Insulin Aspart (Novolog Insulin Pen) NOVOLOG *MODERATE* ALGORITHM WITH MEALS BEDTIME SC Last administered on 10/17/18at 17:48; Admin Dose 4 UNIT; Start 10/17/18 at 08:00; Status Hold Miscellaneous Information 1 ea NOTE XX ; Start 10/16/18 at 22:30 Glucose (Glutose) 15 gm Q15M PRN PO DECREASED GLUCOSE; Start 10/16/18 at 22:30 Glucose (Glutose) 22.5 gm Q15M PRN PO DECREASED GLUCOSE; Start 10/16/18 at 22:30 Dextrose (D50w Syringe) 25 ml Q15M PRN IV DECREASED GLUCOSE; Start 10/16/18 at 22:30 Dextrose (D50w Syringe) 50 ml Q15M PRN IV DECREASED GLUCOSE; Start 10/16/18 at 22:30 Glucagon (Glucagen) 1 mg Q15M PRN IM DECREASED GLUCOSE; Start 10/16/18 at 22:30 Glucose (Glutose) 15 gm Q15M PRN BUCCAL DECREASED GLUCOSE Last administered on 10/17/18at 21:33; Admin Dose 15 GM; Start 10/16/18 at 22:30 Heparin Sodium (Porcine) (Heparin (1000 Units/ml)) 4,000 unit AFTER DIALYSIS CATHETER Last administered on 10/20/18at 14:22; Admin Dose 4,000 UNIT; Start 10/18/18 at 10:30 Albumin Human 50 ml @ 100 mls/hr WITH DIALYSIS PRN IV SBP<90; Start 10/18/18 at 10:30 Linezolid 300 ml @ 300 mls/hr Q12 IVPB Last administered on 10/21/18at 11:42; Admin Dose 300 MLS/HR; Start 10/19/18 at 11:00 Hydroxyzine HCl (Atarax) 25 mg Q6H PRN GTB ITCHING Last administered on at 09:27; Admin Dose 25 MG; Start 10/20/18 at 14:00 Calamine (Calamine Lotion) 1 applic BID PRN TOP itching; Start 10/20/18 at 14:00 Amlodipine Besylate (Norvasc) 5 mg BID GTB Last administered on 10/21/18at 09:20; Admin Dose 5 MG; Start 10/20/18 at 21:00 Lansoprazole (Prevacid) 30 mg DAILY@06 GTB Last administered on 10/21/18at 06:24; Admin Dose 30 MG; Start 10/21/18 at 06:00 Hydralazine HCl (Apresoline) 25 mg TID GTB ; Start 10/21/18 at 21:00 Metoprolol Tartrate (Lopressor) 50 mg BID GTB ; Start 10/21/18 at 21:00 Results Result Diagram: 10/20/18 0435 10/20/18 0435 Results 24 hrs Laboratory Tests Test 10/20/18 21:28 10/20/18 23:01 10/21/18 06:31 10/21/18 08:11 Bedside Glucose 226 H 153 114 142 Test 10/21/18 09:26 10/21/18 12:26 10/21/18 17:25 Bedside Glucose 163 197 174 JOSE RAUL ANDREWS MD Oct 21, 2018 18:33
--- NOTE | 2018-10-21 18:40 | NUR ---
END OF SHIFT Patient alert and verbally responsive. No acute distress. Due medications given. Needs attended. Continue to have 1:1 sitter, patient still with episode of trying to pull out iv lines. Patient to have dialysis in am, endorsed to incoming nurse to confirm with [facility]. Will continue to monitor.
[2018-10-21] MEDS ORDERED: ALBUMIN HUMAN 25% 100 ML IV PRN (19:00)
[2018-10-21 19:29] VITALS: BP 168/77; PULSE 87; RESP 16
[2018-10-21] MEDS: METOPROLOL 50 MG TAB GTB SCH (21:11)
[2018-10-22] VITALS (20 sets, daily range): BP systolic 77–155; BP diastolic 54–74; PULSE 78–102; RESP 16–18
[2018-10-22] MEDS: ACCU-CHEK XX SCH ×5 (01:57→21:03)
--- NOTE | 2018-10-22 02:54 | NUR ---
Spoke with Wen at Dialysis [facility]. Marc will be doing dialysis for pt this AM.
[2018-10-22] MEDS: LANSOPRAZOLE 30 MG CAP GTB SCH (05:50)
--- NOTE | 2018-10-22 06:53 | NUR ---
END OF SHIFT REPORT Pt alert and confused. Pt with 1:1 sitter. Pt's vitals stable. All due meds given. No acute distress noted. Blood glucose check completed with no insulin coverage. Pt currently receiving hemodialysis. Will endorse pt to AM shift nurse for continuation of care.
[2018-10-22] MEDS: LINAGLIPTIN 5 MG TABLET G-TUBE SCH (09:24)
[2018-10-22] MEDS: SENNA TAB GTB SCH ×2 (09:24→21:02)
[2018-10-22] MEDS: DOCUSATE SODIUM 10 MG/ML (10ML CUP) GTB SCH (09:24)
[2018-10-22] MEDS: FOLIC ACID 1 MG TAB GTB SCH (09:24)
[2018-10-22] MEDS: MULTIVIT/CA CARB/B CMPLX/FA TAB GTB SCH (09:24)
[2018-10-22] MEDS: QUETIAPINE 25 MG TAB GTB SCH ×2 (09:24→21:03)
[2018-10-22] MEDS: FERROUS SULFATE 60 MG/ML 5ML CUP GTB SCH ×2 (09:25→21:02)
[2018-10-22] MEDS: HEPARIN 1000 UNITS/ML 10 ML INJ CATHETER SCH (09:34)
[2018-10-22] MEDS: LINEZOLID 600 MG/D5W (PMX) 300 ML IVPB SCH ×2 (10:49→21:15)
--- NOTE | 2018-10-22 10:58 | CONS ---
Date/Time of Note Date/Time of Note DATE: 10/22/18 TIME: 10:57 Assessment/Plan Assessment/Plan Chief Complaint/Hosp Course No acute changes over night, looks comfortable, afebrile Indwelling: Right chest permacath, PEG Microbiology: Blood cultures since admission grew VRE, repeat blood cultures from HD cath + Antimicrobials: Zyvox Chest x-ray on admission revealed left lower lung field subsegmental atelectasis no focal consolidation pleural effusion or pneumothorax Physical examination: Chronically ill-appearing elderly woman who is in no distress. Head atraumatic normocephalic. Neck is supple. Chest rise symmetrical breath sounds diminished bases. Heart: S1-S2. Abdomen soft bowel sounds present extremities without edema Assessment: 1. Sepsis with VRE bacteremia 2 to infected Pcath 2. Positive urinalysis on admission, urine culture came back negative 3. End-stage renal disease, hemodialysis dependent 4. Dementia 5. Failure to thrive 6. Diabetes Plan: Patient remains stable, pending dc pcath, continue abx [facility] staff Consultation Date/Type/Reason Admit Date/Time Oct 16, 2018 at 18:45 Initial Consult Date Type of Consult ID Exam/Review of Systems Vital Signs Vitals Vital Signs Date Temp Pulse Resp B/P (MAP) Pulse Ox O2 O2 Flow FiO2 Time Delivery Rate 10/22/18 95 09:40 10/22/18 18 153/74 Room Air 08:47 (100) 10/22/18 97.4 100 07:45 Intake and Output 10/21/18 10/21/18 10/22/18 1515:00 23:00 07:00 IntakeIntake Total 480 ml 300 ml 180 ml OutputOutput Total 200 ml BalanceBalance 480 ml 300 ml -20 ml Medications Medications Current Medications Docusate Sodium (Colace Liquid Cup) 100 mg DAILY GTB Last administered on at 09:24; Admin Dose 100 MG; Start 10/17/18 at 09:00 Ferrous Sulfate (Feosol Liquid Cup) 330 mg BID GTB Last administered on 10/22/18at 09:25; Admin Dose 330 MG; Start 10/16/18 at 22:00 Folic Acid (Folic Acid) 1 mg DAILY GTB Last administered on 10/22/18at 09:24; Admin Dose 1 MG; Start 10/17/18 at 09:00 Insulin Detemir (Levemir) 8 units DAILY@0800 SC Last administered on 10/17/18 08:40; Admin Dose 8 UNITS; Start 10/17/18 at 08:00; Status Hold Polyethylene Glycol (Miralax) 8.5 gm DAILY PRN GTB CONSTIPATION; Start 10/16/18 at 22:00 Multivit/Ca Carb/ B Cmplx/FA/Prenat (Kianna-Roque) 1 tab DAILY GTB Last administered on 10/22/18 09:24; Admin Dose 1 TAB; Start 10/17/18 at 09:00 Quetiapine Fumarate (Seroquel) 25 mg BID GTB Last administered on 10/22/18 09:24; Admin Dose 25 MG; Start 10/16/18 at 22:00 Linagliptin (Tradjenta) 5 mg DAILY G-TUBE Last administered on 10/22/18 09:24 ; Admin Dose 5 MG; Start 10/17/18 at 09:00 Diagnostic Test (Pha) (Accu-Chek) 1 ea AC MEALS AND BEDTIME XX Last administered on 10/21/18 21:37; Admin Dose 1 EA; Start 10/17/18 at 07:00 Lorazepam (Ativan) 1 mg Q8H PRN GTB ANXIETY Last administered on 10/21/18 01:44; Admin Dose 1 MG; Start 10/16/18 at 22:00 Senna (Senokot) 1 tab BID GTB Last administered on 10/22/18 09:24; Admin Dose 1 TAB; Start 10/16/18 at 22:00 Ondansetron HCl (Zofran Inj) 4 mg Q6H PRN IV NAUSEA AND/OR VOMITING; Start 10/16/18 at 22:00 Acetaminophen (Tylenol Liquid) 650 mg Q6 PRN GTB PAIN Last administered on 10/19/18 16:59; Admin Dose 650 MG; Start 10/16/18 at 22:00 Diagnostic Test (Pha) (Accu-Chek) 1 ea 02 XX Last administered on 10/22/18 01:57; Admin Dose 1 EA; Start 10/17/18 at 02:00 Insulin Aspart (Novolog Insulin Pen) NOVOLOG *MODERATE* ALGORITHM WITH MEALS BEDTIME SC Last administered on 10/17/18 17:48; Admin Dose 4 UNIT; Start 10/17/18 at 08:00; Status Hold Miscellaneous Information 1 ea NOTE XX ; Start 10/16/18 at 22:30 Glucose (Glutose) 15 gm Q15M PRN PO DECREASED GLUCOSE; Start 10/16/18 at 22:30 Glucose (Glutose) 22.5 gm Q15M PRN PO DECREASED GLUCOSE; Start 10/16/18 at 22:30 Dextrose (D50w Syringe) 25 ml Q15M PRN IV DECREASED GLUCOSE; Start 10/16/18 at 22:30 Dextrose (D50w Syringe) 50 ml Q15M PRN IV DECREASED GLUCOSE; Start 10/16/18 at 22:30 Glucagon (Glucagen) 1 mg Q15M PRN IM DECREASED GLUCOSE; Start 10/16/18 at 22:30 Glucose (Glutose) 15 gm Q15M PRN BUCCAL DECREASED GLUCOSE Last administered on 10/17/18at 21:33; Admin Dose 15 GM; Start 10/16/18 at 22:30 Heparin Sodium (Porcine) (Heparin (1000 Units/ml)) 4,000 unit AFTER DIALYSIS CATHETER Last administered on 10/22/18at 09:34; Admin Dose 4,000 UNIT; Start 10/18/18 at 10:30 Linezolid 300 ml @ 300 mls/hr Q12 IVPB Last administered on 10/22/18at 10:49; Admin Dose 300 MLS/HR; Start 10/19/18 at 11:00 Hydroxyzine HCl (Atarax) 25 mg Q6H PRN GTB ITCHING Last administered on 10/21/18at 09:27; Admin Dose 25 MG; Start 10/20/18 at 14:00 Calamine (Calamine Lotion) 1 applic BID PRN TOP itching; Start 10/20/18 at 14:00 Amlodipine Besylate (Norvasc) 5 mg BID GTB Last administered on 10/21/18at 21:11; Admin Dose 5 MG; Start 10/20/18 at 21:00 Lansoprazole (Prevacid) 30 mg DAILY@06 GTB Last administered on 10/22/18at 05:50; Admin Dose 30 MG; Start 10/21/18 at 06:00 Hydralazine HCl (Apresoline) 25 mg TID GTB Last administered on 10/21/18at 21:12; Admin Dose 25 MG; Start 10/21/18 at 21:00 Metoprolol Tartrate (Lopressor) 50 mg BID GTB Last administered on 10/21/18at 21:11; Admin Dose 50 MG; Start 10/21/18 at 21:00 Heparin Sodium (Porcine) (Heparin (1000 Units/ml)) 4,000 unit AFTER DIALYSIS CATHETER ; Start 10/21/18 at 19:00 Albumin Human 100 ml @ 100 mls/hr WITH DIALYSIS PRN IV SBP<90; Start 10/21/18 at 19:00 Results Result Diagram: 10/22/18 0444 10/22/18 0444 Results 24 hrs Laboratory Tests Test 10/21/18 12:26 10/21/18 17:25 10/21/18 21:07 10/22/18 01:54 Bedside Glucose 197 174 148 142 Test 10/22/18 04:44 10/22/18 09:22 White Blood 6.4 Count Red Blood Count 4.08 L Hemoglobin 9.9 L Hematocrit 32.5 L Mean Corpuscular 79.7 L Volume Mean Corpuscular 24.3 L Hemoglobin Mean Corpuscular 30.5 L Hemoglobin Mckayla nt Red Cell 21.3 H Distribution Width Platelet Count 270 Mean Platelet 11.3 H Volume Immature 0.300 Granulocytes % Neutrophils % 60.8 Lymphocytes % 17.8 Monocytes % 9.2 Eosinophils % 11.4 H Basophils % 0.5 Nucleated Red 0.8 H Blood Cells % Immature 0.020 Granulocytes # Neutrophils # 3.9 Lymphocytes # 1.1 Monocytes # 0.6 Eosinophils # 0.7 H Basophils # 0.0 Nucleated Red 0.1 H Blood Cells # Sodium Level 137 Potassium Level 4.5 Chloride Level 99 Carbon Dioxide 30 Level Anion Gap 8 Blood Urea 31 H Nitrogen Creatinine 2.07 H Est Glomerular Filtrat Rate mL/min Glucose Level 124 Calcium Level 9.2 Bedside Glucose 117 PHYLICIA HOLCOMB NP Oct 22, 2018 10:58
[2018-10-22] MEDS: AMLODIPINE 5 MG TAB GTB SCH ×2 (11:06→21:03)
[2018-10-22] MEDS: METOPROLOL 50 MG TAB GTB SCH ×2 (11:06→21:02)
[2018-10-22] MEDS ORDERED: LIDOCAINE 1% (MPF) 5 ML VIAL INJ ONE (12:00)
--- NOTE | 2018-10-22 13:24 | QN ---
Documentation Comment R IJ permacath removed at bedside using sharp dissection - tips and cuff intact Catheter tip sent for C&S MIKEL REDDY MD Oct 22, 2018 13:24
--- NOTE | 2018-10-22 18:24 | NUR ---
END OF SHIFT Patient in no acute distress, confused. continue 1;1 sitter. Permacath on right chest was removed by Dr. Sagastume, sent catheter tip for culture. Due medications given, tolerated well. Needs attended. Repositioned every 2hours. Will continue to monitor.
--- NOTE | 2018-10-22 19:01 | CONS ---
Date/Time of Note Date/Time of Note DATE: 10/22/18 TIME: 19:00 Assessment/Plan Assessment/Plan Chief Complaint/Hosp Course 83 y/o with This is an 83-year-old female with: 1. Hypotension, could be secondary to sepsis as the patient has positive bacteremia/urinary tract infection. The patient was continued on blood pressure medicines aggressively 2. Altered level of consciousness, likely secondary to metabolic encephalopathy, secondary to low blood pressures. vs Vascular dementia 3. Mild hyponatremia. 4. End-stage renal disease on hemodialysis. 5. Diabetes. 6. Dysphagia, status post G-tube feeding. 7. History of vascular dementia. 8. Hypertension. 9. History of falls. 10. Anemia. 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 S/P REMOVAL TODAY Plan -DC Permacath today - f/u repeat cx - LIine holiday -fluid restriction while line holiday -cw zyvox -Appreciate vascular/ID consultation -bp medications have been resumed -Renally dose all meds Consultation Date/Type/Reason Admit Date/Time Oct 16, 2018 at 18:45 Initial Consult Date 24 HR Interval Summary Free Text/Dictation bld cx permcath +VRE Exam/Review of Systems Vital Signs Vitals Vital Signs Date Temp Pulse Resp B/P (MAP) Pulse Ox O2 O2 Flow FiO2 Time Delivery Rate 10/22/18 97.8 83 18 146/63 99 13:58 (90) 10/22/18 Room Air 08:47 Intake and Output 10/21/18 10/21/18 10/22/18 1515:00 23:00 07:00 IntakeIntake Total 480 ml 300 ml 180 ml OutputOutput Total 200 ml BalanceBalance 480 ml 300 ml -20 ml Exam GENERAL: The patient calmer today HEENT: Pupils equal, round, reactive to light. NECK: Supple. No JVD. HEART: Regular rate and rhythm. LUNGS: Clear to auscultation bilaterally. ABDOMEN: Soft, nontender, nondistended. The patient has a G-tube in place. EXTREMITIES: Multiple bruises present. The patient has a right chest wall Perm-A-Cath.S/P REOVOAL TODAY Medications Medications Current Medications Docusate Sodium (Colace Liquid Cup) 100 mg DAILY GTB Last administered on 10/22/18at 09:24; Admin Dose 100 MG; Start 10/17/18 at 09:00 Ferrous Sulfate (Feosol Liquid Cup) 330 mg BID GTB Last administered on 10/22/18 09:25; Admin Dose 330 MG; Start 10/16/18 at 22:00 Folic Acid (Folic Acid) 1 mg DAILY GTB Last administered on 10/22/18 09:24; Admin Dose 1 MG; Start 10/17/18 at 09:00 Insulin Detemir (Levemir) 8 units DAILY@0800 SC Last administered on 10/17/18 08:40; Admin Dose 8 UNITS; Start 10/17/18 at 08:00; Status Hold Polyethylene Glycol (Miralax) 8.5 gm DAILY PRN GTB CONSTIPATION; Start 10/16/18 at 22:00 Multivit/Ca Carb/ B Cmplx/FA/Prenat (Kianna-Roque) 1 tab DAILY GTB Last administered on 10/22/18 09:24; Admin Dose 1 TAB; Start 10/17/18 at 09:00 Quetiapine Fumarate (Seroquel) 25 mg BID GTB Last administered on 10/22/18 09:24; Admin Dose 25 MG; Start 10/16/18 at 22:00 Linagliptin (Tradjenta) 5 mg DAILY G-TUBE Last administered on 10/22/18 09:24; Admin Dose 5 MG; Start 10/17/18 at 09:00 Diagnostic Test (Pha) (Accu-Chek) 1 ea AC MEALS AND BEDTIME XX Last administered on 10/21/18 21:37; Admin Dose 1 EA; Start 10/17/18 at 07:00 Lorazepam (Ativan) 1 mg Q8H PRN GTB ANXIETY Last administered on 10/21/18 01:44; Admin Dose 1 MG; Start 10/16/18 at 22:00 Senna (Senokot) 1 tab BID GTB Last administered on 10/22/18 09:24; Admin Dose 1 TAB; Start 10/16/18 at 22:00 Ondansetron HCl (Zofran Inj) 4 mg Q6H PRN IV NAUSEA AND/OR VOMITING; Start 10/16/18 at 22:00 Acetaminophen (Tylenol Liquid) 650 mg Q6 PRN GTB PAIN Last administered on 10/19/18 16:59; Admin Dose 650 MG; Start 10/16/18 at 22:00 Diagnostic Test (Pha) (Accu-Chek) 1 ea 02 XX Last administered on 10/22/18at 01:57; Admin Dose 1 EA; Start 10/17/18 at 02:00 Insulin Aspart (Novolog Insulin Pen) NOVOLOG *MODERATE* ALGORITHM WITH MEALS BEDTIME SC Last administered on 10/17/18at 17:48; Admin Dose 4 UNIT; Start 10/17/18 at 08:00; Status Hold Miscellaneous Information 1 ea NOTE XX ; Start 10/16/18 at 22:30 Glucose (Glutose) 15 gm Q15M PRN PO DECREASED GLUCOSE; Start 10/16/18 at 22:30 Glucose (Glutose) 22.5 gm Q15M PRN PO DECREASED GLUCOSE; Start 10/16/18 at 22:30 Dextrose (D50w Syringe) 25 ml Q15M PRN IV DECREASED GLUCOSE; Start 10/16/18 at 22:30 Dextrose (D50w Syringe) 50 ml Q15M PRN IV DECREASED GLUCOSE; Start 10/16/18 at 22:30 Glucagon (Glucagen) 1 mg Q15M PRN IM DECREASED GLUCOSE; Start 10/16/18 at 22:30 Glucose (Glutose) 15 gm Q15M PRN BUCCAL DECREASED GLUCOSE Last administered on 10/17/18at 21:33; Admin Dose 15 GM; Start 10/16/18 at 22:30 Heparin Sodium (Porcine) (Heparin (1000 Units/ml)) 4,000 unit AFTER DIALYSIS CATHETER Last administered on 10/22/18at 09:34; Admin Dose 4,000 UNIT; Start 10/18/18 at 10:30 Linezolid 300 ml @ 300 mls/hr Q12 IVPB Last administered on 10/22/18at 10:49; Admin Dose 300 MLS/HR; Start 10/19/18 at 11:00 Hydroxyzine HCl (Atarax) 25 mg Q6H PRN GTB ITCHING Last administered on 10/21/18at 09:27; Admin Dose 25 MG; Start 10/20/18 at 14:00 Calamine (Calamine Lotion) 1 applic BID PRN TOP itching; Start 10/20/18 at 14:00 Amlodipine Besylate (Norvasc) 5 mg BID GTB Last administered on 10/21/18at 21:11; Admin Dose 5 MG; Start 10/20/18 at 21:00 Lansoprazole (Prevacid) 30 mg DAILY@06 GTB Last administered on 10/22/18at 05:50; Admin Dose 30 MG; Start 10/21/18 at 06:00 Hydralazine HCl (Apresoline) 25 mg TID GTB Last administered on 10/22/18at 13:49; Admin Dose 25 MG; Start 10/21/18 at 21:00 Metoprolol Tartrate (Lopressor) 50 mg BID GTB Last administered on 10/21/18at 21:11; Admin Dose 50 MG; Start 10/21/18 at 21:00 Heparin Sodium (Porcine) (Heparin (1000 Units/ml)) 4,000 unit AFTER DIALYSIS CATHETER ; Start 10/21/18 at 19:00 Albumin Human 100 ml @ 100 mls/hr WITH DIALYSIS PRN IV SBP<90; Start 10/21/18 at 19:00 Results Result Diagram: 10/22/18 0444 10/22/18 0444 Results 24 hrs Laboratory Tests Test 10/21/18 21:07 10/22/18 01:54 10/22/18 04:44 10/22/18 09:22 Bedside Glucose 148 142 117 White Blood 6.4 Count Red Blood Count 4.08 L Hemoglobin 9.9 L Hematocrit 32.5 L Mean Corpuscular 79.7 L Volume Mean Corpuscular 24.3 L Hemoglobin Mean Corpuscular 30.5 L Hemoglobin Mckayla nt Red Cell 21.3 H Distribution Width Platelet Count 270 Mean Platelet 11.3 H Volume Immature 0.300 Granulocytes % Neutrophils % 60.8 Lymphocytes % 17.8 Monocytes % 9.2 Eosinophils % 11.4 H Basophils % 0.5 Nucleated Red 0.8 H Blood Cells % Immature 0.020 Granulocytes # Neutrophils # 3.9 Lymphocytes # 1.1 Monocytes # 0.6 Eosinophils # 0.7 H Basophils # 0.0 Nucleated Red 0.1 H Blood Cells # Sodium Level 137 Potassium Level 4.5 Chloride Level 99 Carbon Dioxide 30 Level Anion Gap 8 Blood Urea 31 H Nitrogen Creatinine 2.07 H Est Glomerular Filtrat Rate mL/min Glucose Level 124 Calcium Level 9.2 Test 10/22/18 12:42 10/22/18 17:28 Bedside Glucose 231 H 132 JOSE RAUL ANDREWS MD Oct 22, 2018 19:01
--- NOTE | 2018-10-22 20:38 | PN ---
DATE: 10/22/2018 SUBJECTIVE: Patient was seen. The patient's PermCath was removed today due to bacteremia and most l ikely line sepsis. The patient is alert, remains confused but overall comfortable. [facility]. The patient also to have a low air mattress. PHYSICAL EXAMINATION: VITAL SIGNS: Temperature 97.8, pulse 83, respiration 18, blood pressure 146/63, saturation 99% on ro om air. GENERAL: No acute distress. The patient is frail, pale. CARDIOVASCULAR: S1, S2, regular rate. LUNGS: Clear. ABDOMEN: Soft. G-tube in place. EXTREMITIES: No clubbing, cyanosis, or edema. LABORATORY DATA: White count 6.4, hemoglobin 9.9, hematocrit 33, platelet count of 270 with normal d ifferential. Chemistry: Sodium is 137, potassium 4.5, chloride 99, bicarbonate 30, BUN is 31, creat inine 2.07, glucose 124. Patient was dialyzed this morning. Last glucose level 132, 231, 117. Kirsten ent's cultures again, blood cultures on admission on 10/16/2018 showed 2/2 bottles of VRE, repeat cul tures on 10/20/2018 shows enterococcus species and urine culture was negative. CURRENT MEDICATIONS: Reviewed and include: 1. Hydralazine 25 t.i.d. 2. Lopressor 50 b.i.d. 3. Heparin as directed. 4. Albumin as directed. 5. Prevacid 30 mg daily. 6. Norvasc 5 mg b.i.d. 7. Atarax 25 q.6h. p.r.n. 8. Calamine lotion b.i.d. p.r.n. 9. Linezolid IV dosed per pharmacy. 10. Colace 100 daily. 11. Folic acid 1 mg daily. 12. Kianna-Roque 1 tab daily. 13. Tradjenta 5 mg daily. 14. Hypoglycemia protocol. 15. PRN meds were reviewed. 16. Also, she is on ferrous sulfate 30 mg b.i.d. 17. MiraLax p.r.n. 18. Seroquel 25 b.i.d. 19. Ativan 1 mg via G-tube q.8h. p.r.n. 20. Senna. 21. Zofran. 22. Tylenol. ASSESSMENT AND PLAN: This is an 83-year-old Stateless female with history of end-stage renal disease, COPD, vascular dementia, CVA, who presented with hypotension, encephalopathy, was found to have bact eremia, likely due to line sepsis, also urinary tract infection. 1. Respiratory. Remains stable off oxygen. 2. Cardiovascular. Blood pressure is better controlled. Continue above meds with holding parameter s. 3. Diabetes mellitus. Accu-Cheks are good in the 100s. 4. Dysphagia. Remains with G-tube feeding. Oral intake is about 20%, but she does have bolus feedi ngs 3 times a day. 5. Psychiatric disorder. Continue Seroquel. Mood appears to be stable. The patient has a 1:1 sitt er due to danger to self, risk of fall and confusion. 6. Bacteremia. Due to line infection, we will repeat blood cultures. In the meantime, continue abo ve antibiotics with linezolid. ID is following and assisting with antibiotic management. 7. End-stage renal disease. Dialysis was done today. Likely, we will need line rest and another Pe rmCath will be placed hopefully early next week. 8. Anemia. Epogen p.r.n. Currently, no need for transfusion. 9. We will follow. Continue Protonix for GI prophylaxis. 10. Continue stool softeners. We will follow closely. Dictated By: DYLON HULL/MADAN Conf#: [id number] DID#: [id number]
[2018-10-23 02:00] VITALS: BP 138/82; PULSE 89; RESP 18
[2018-10-23] MEDS: ACCU-CHEK XX SCH ×5 (02:23→21:40)
[2018-10-23] MEDS: LANSOPRAZOLE 30 MG CAP GTB SCH (05:21)
--- NOTE | 2018-10-23 06:45 | NUR ---
EOSS: Patient remain stable. No s/s of SOB or any discomfort noted. Patient 1:[address] Bed in low position and locked. Will endorse to morning nurse for continuity of care.
[2018-10-23 07:53] VITALS: BP 131/58; PULSE 84; RESP 17
[2018-10-23] MEDS: FERROUS SULFATE 60 MG/ML 5ML CUP GTB SCH ×2 (08:49→21:38)
[2018-10-23] MEDS: AMLODIPINE 5 MG TAB GTB SCH ×2 (08:50→21:39)
[2018-10-23] MEDS: SENNA TAB GTB SCH ×2 (08:51→21:39)
[2018-10-23] MEDS: LINAGLIPTIN 5 MG TABLET G-TUBE SCH (08:51)
[2018-10-23] MEDS: MULTIVIT/CA CARB/B CMPLX/FA TAB GTB SCH (08:51)
[2018-10-23] MEDS: FOLIC ACID 1 MG TAB GTB SCH (08:51)
[2018-10-23] MEDS: QUETIAPINE 25 MG TAB GTB SCH ×2 (08:51→21:39)
[2018-10-23] MEDS: METOPROLOL 50 MG TAB GTB SCH ×2 (08:52→21:39)
[2018-10-23] MEDS: DOCUSATE SODIUM 10 MG/ML (10ML CUP) GTB SCH (08:58)
[2018-10-23] MEDS: LINEZOLID 600 MG/D5W (PMX) 300 ML IVPB SCH ×2 (10:21→21:42)
[2018-10-23 14:00] VITALS: BP 142/66; PULSE 78; RESP 18
--- NOTE | 2018-10-23 14:24 | CONS ---
Date/Time of Note Date/Time of Note DATE: 10/23/18 TIME: 14:21 Consultation Date/Type/Reason Admit Date/Time Oct 16, 2018 at 18:45 Type of Consult SUBJECTIVE: Pt is awake, alert, afebrile. S/P Permacath removal yesterday. VS: stable. T:98.1 LABS: Reviewed. Indwelling: Right chest permacath(removed), PEG Microbiology: Blood cultures since admission grew VRE, repeat blood cultures from HD cath + Antimicrobials: Zyvox Chest x-ray on admission revealed left lower lung field subsegmental atelectasis no focal consolidation pleural effusion or pneumothorax Physical examination: GEN:Chronically ill-appearing elderly woman who is in no distress. Head atraumatic normocephalic. Neck is supple. Chest rise symmetrical breath sounds diminished bases. Heart: S1-S2. Abdomen soft bowel sounds present Extremities without edema Assessment: 1. Sepsis with VRE bacteremia 2 to infected Pcath 2. Positive urinalysis on admission, urine culture came back negative 3. End-stage renal disease, hemodialysis dependent 4. Dementia 5. Failure to thrive 6. Diabetes Plan: Patient remains stable. S/P removal of pcath yesterday. Will continue current abx. Repeat blood culture from yesterday is neg. Social History Smoking Status: Never smoker Exam/Review of Systems Vital Signs Vitals Vital Signs Date Temp Pulse Resp B/P (MAP) Pulse Ox O2 O2 Flow FiO2 Time Delivery Rate 10/23/18 98.1 84 17 131/58 96 Room Air 07:53 (82) Intake and Output 10/22/18 10/22/18 10/23/18 1515:00 23:00 07:00 IntakeIntake Total 480 ml 60 ml 300 ml OutputOutput Total 2200 ml BalanceBalance -1720 ml 60 ml 300 ml Medications Medications Current Medications Docusate Sodium (Colace Liquid Cup) 100 mg DAILY GTB Last administered on 10/23/18at 08:58; Admin Dose 100 MG; Start 10/17/18 at 09:00 Ferrous Sulfate (Feosol Liquid Cup) 330 mg BID GTB Last administered on 10/23/18at 08:49; Admin Dose 330 MG; Start 10/16/18 at 22:00 Folic Acid (Folic Acid) 1 mg DAILY GTB Last administered on 10/23/18at 08:51; Admin Dose 1 MG; Start 10/17/18 at 09:00 Insulin Detemir (Levemir) 8 units DAILY@0800 SC Last administered on 10/17/18 08:40; Admin Dose 8 UNITS; Start 10/17/18 at 08:00; Status Hold Polyethylene Glycol (Miralax) 8.5 gm DAILY PRN GTB CONSTIPATION; Start 10/16/18 at 22:00 Multivit/Ca Carb/ B Cmplx/FA/Prenat (Kianna-Roque) 1 tab DAILY GTB Last administered on 10/23/18 08:51; Admin Dose 1 TAB; Start 10/17/18 at 09:00 Quetiapine Fumarate (Seroquel) 25 mg BID GTB Last administered on 10/23/18 08:51; Admin Dose 25 MG; Start 10/16/18 at 22:00 Linagliptin (Tradjenta) 5 mg DAILY G-TUBE Last administered on 10/23/18 08:51; Admin Dose 5 MG; Start 10/17/18 at 09:00 Diagnostic Test (Pha) (Accu-Chek) 1 ea AC MEALS AND BEDTIME XX Last administered on 10/23/18 11:30; Admin Dose 1 EA; Start 10/17/18 at 07:00 Lorazepam (Ativan) 1 mg Q8H PRN GTB ANXIETY Last administered on 10/21/18 01:44; Admin Dose 1 MG; Start 10/16/18 at 22:00 Senna (Senokot) 1 tab BID GTB Last administered on 10/23/18 08:51; Admin Dose 1 TAB; Start 10/16/18 at 22:00 Ondansetron HCl (Zofran Inj) 4 mg Q6H PRN IV NAUSEA AND/OR VOMITING; Start 10/16/18 at 22:00 Acetaminophen (Tylenol Liquid) 650 mg Q6 PRN GTB PAIN Last administered on 10/19/18 16:59; Admin Dose 650 MG; Start 10/16/18 at 22:00 Diagnostic Test (Pha) (Accu-Chek) 1 ea 02 XX Last administered on 10/23/18 02:23; Admin Dose 1 EA; Start 10/17/18 at 02:00 Insulin Aspart (Novolog Insulin Pen) NOVOLOG *MODERATE* ALGORITHM WITH MEALS BEDTIME SC Last administered on 10/17/18at 17:48; Admin Dose 4 UNIT; Start 10/17/18 at 08:00; Status Hold Miscellaneous Information 1 ea NOTE XX ; Start 10/16/18 at 22:30 Glucose (Glutose) 15 gm Q15M PRN PO DECREASED GLUCOSE; Start 10/16/18 at 22:30 Glucose (Glutose) 22.5 gm Q15M PRN PO DECREASED GLUCOSE; Start 10/16/18 at 22:30 Dextrose (D50w Syringe) 25 ml Q15M PRN IV DECREASED GLUCOSE; Start 10/16/18 at 22:30 Dextrose (D50w Syringe) 50 ml Q15M PRN IV DECREASED GLUCOSE; Start 10/16/18 at 22:30 Glucagon (Glucagen) 1 mg Q15M PRN IM DECREASED GLUCOSE; Start 10/16/18 at 22:30 Glucose (Glutose) 15 gm Q15M PRN BUCCAL DECREASED GLUCOSE Last administered on 10/17/18at 21:33; Admin Dose 15 GM; Start 10/16/18 at 22:30 Heparin Sodium (Porcine) (Heparin (1000 Units/ml)) 4,000 unit AFTER DIALYSIS CATHETER Last administered on 10/22/18at 09:34; Admin Dose 4,000 UNIT; Start 10/18/18 at 10:30 Linezolid 300 ml @ 300 mls/hr Q12 IVPB Last administered on 10/23/18at 10:21; Admin Dose 300 MLS/HR; Start 10/19/18 at 11:00 Hydroxyzine HCl (Atarax) 25 mg Q6H PRN GTB ITCHING Last administered on 10/21/18at 09:27; Admin Dose 25 MG; Start 10/20/18 at 14:00 Calamine (Calamine Lotion) 1 applic BID PRN TOP itching; Start 10/20/18 at 14:00 Amlodipine Besylate (Norvasc) 5 mg BID GTB Last administered on 10/23/18at 08:50; Admin Dose 5 MG; Start 10/20/18 at 21:00 Lansoprazole (Prevacid) 30 mg DAILY@06 GTB Last administered on 10/23/18at 05:21; Admin Dose 30 MG; Start 10/21/18 at 06:00 Hydralazine HCl (Apresoline) 25 mg TID GTB Last administered on 10/23/18at 12:57; Admin Dose 25 MG; Start 10/21/18 at 21:00 Metoprolol Tartrate (Lopressor) 50 mg BID GTB Last administered on 10/23/18at 08:52; Admin Dose 50 MG; Start 10/21/18 at 21:00 Heparin Sodium (Porcine) (Heparin (1000 Units/ml)) 4,000 unit AFTER DIALYSIS CATHETER ; Start 10/21/18 at 19:00 Albumin Human 100 ml @ 100 mls/hr WITH DIALYSIS PRN IV SBP<90; Start 10/21/18 at 19:00 Results Result Diagram: 10/22/18 0444 10/22/18 0444 Results 24 hrs Laboratory Tests Test 10/22/18 17:28 10/22/18 20:38 10/23/18 08:34 10/23/18 12:52 Bedside Glucose 132 141 185 150 SCOTT SHEEHAN Oct 23, 2018 14:24
[2018-10-23] MEDS: LORAZEPAM 1 MG TAB GTB PRN ×2 (14:30→22:30)
--- NOTE | 2018-10-23 18:28 | NUR ---
END OF SHIFT REPORT Pt alert and confused. Pt with 1:1 sitter. Pt's vitals stable. All due medications given. No acute distress noted. Blood glucose check completed with no insulin coverage.Diet order clarified with Dr. Perez. When it was ordered Gtube feeding other diet was automatically discontinued. Patients daughter was upset that we stopped feeding patient with pureed food. New order received. Patient will have additional to bolus Gtube feeding pureed nectar thick meals TID. Patient remained safe during the day. Will continue to monitor.
[2018-10-23 19:16] VITALS: BP 162/73; PULSE 87; RESP 16
--- NOTE | 2018-10-23 19:18 | CONS ---
Date/Time of Note Date/Time of Note DATE: 10/23/18 TIME: 19:16 Assessment/Plan Assessment/Plan Chief Complaint/Hosp Course 1. SEPSIS 2. Altered level of consciousness, likely secondary to metabolic encephalopathy, secondary to low blood pressures. vs Vascular dementia 3. Mild hyponatremia. 4. End-stage renal disease on hemodialysis. 5. Diabetes. 6. Dysphagia, status post G-tube feeding. 7. History of vascular dementia. 8. Hypertension. 9. History of falls. 10. Anemia. 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 PLAN ANTIBIOTIC CONTINUE HD Consultation Date/Type/Reason Admit Date/Time Oct 16, 2018 at 18:45 Initial Consult Date RENAL NO SOB NO CP Exam/Review of Systems Vital Signs Vitals Vital Signs Date Temp Pulse Resp B/P (MAP) Pulse Ox O2 O2 Flow FiO2 Time Delivery Rate 10/23/18 97.4 78 18 142/66 95 Room Air 14:00 (91) Intake and Output 10/22/18 10/22/18 10/23/18 1414:59 22:59 06:59 IntakeIntake Total 480 ml 60 ml 300 ml OutputOutput Total 2200 ml BalanceBalance -1720 ml 60 ml 300 ml Exam Respiratory: clear to auscultation Cardiovascular: regular rate and rhythm Gastrointestinal: soft Musculoskeletal: nl extremities to inspection Extremities: normal pulses Medications Medications Current Medications Docusate Sodium (Colace Liquid Cup) 100 mg DAILY GTB Last administered on 10/23/18at 08:58; Admin Dose 100 MG; Start 10/17/18 at 09:00 Ferrous Sulfate (Feosol Liquid Cup) 330 mg BID GTB Last administered on 10/23/18at 08:49; Admin Dose 330 MG; Start 10/16/18 at 22:00 Folic Acid (Folic Acid) 1 mg DAILY GTB Last administered on 10/23/18at 08:51; Admin Dose 1 MG; Start 10/17/18 at 09:00 Insulin Detemir (Levemir) 8 units DAILY@0800 SC Last administered on 10/17/18at 08:40; Admin Dose 8 UNITS; Start 10/17/18 at 08:00; Status Hold Polyethylene Glycol (Miralax) 8.5 gm DAILY PRN GTB CONSTIPATION; Start 10/16/18 at 22:00 Multivit/Ca Carb/ B Cmplx/FA/Prenat (Kianna-Roque) 1 tab DAILY GTB Last administered on 10/23/18 08:51; Admin Dose 1 TAB; Start 10/17/18 at 09:00 Quetiapine Fumarate (Seroquel) 25 mg BID GTB Last administered on 10/23/18 08:51; Admin Dose 25 MG; Start 10/16/18 at 22:00 Linagliptin (Tradjenta) 5 mg DAILY G-TUBE Last administered on 10/23/18 08 :51; Admin Dose 5 MG; Start 10/17/18 at 09:00 Diagnostic Test (Pha) (Accu-Chek) 1 ea AC MEALS AND BEDTIME XX Last administered on 10/23/18 17:31; Admin Dose 1 EA; Start 10/17/18 at 07:00 Lorazepam (Ativan) 1 mg Q8H PRN GTB ANXIETY Last administered on 10/23/18 14:30; Admin Dose 1 MG; Start 10/16/18 at 22:00 Senna (Senokot) 1 tab BID GTB Last administered on 10/23/18 08:51; Admin Dose 1 TAB; Start 10/16/18 at 22:00 Ondansetron HCl (Zofran Inj) 4 mg Q6H PRN IV NAUSEA AND/OR VOMITING; Start 10/16/18 at 22:00 Acetaminophen (Tylenol Liquid) 650 mg Q6 PRN GTB PAIN Last administered on 16:59; Admin Dose 650 MG; Start 10/16/18 at 22:00 Diagnostic Test (Pha) (Accu-Chek) 1 ea 02 XX Last administered on 10/23/18at 02:23; Admin Dose 1 EA; Start 10/17/18 at 02:00 Insulin Aspart (Novolog Insulin Pen) NOVOLOG *MODERATE* ALGORITHM WITH MEALS BEDTIME SC Last administered on 10/17/18 17:48; Admin Dose 4 UNIT; Start 10/17/18 at 08:00; Status Hold Miscellaneous Information 1 ea NOTE XX ; Start 10/16/18 at 22:30 Glucose (Glutose) 15 gm Q15M PRN PO DECREASED GLUCOSE; Start 10/16/18 at 22:30 Glucose (Glutose) 22.5 gm Q15M PRN PO DECREASED GLUCOSE; Start 10/16/18 at 22:30 Dextrose (D50w Syringe) 25 ml Q15M PRN IV DECREASED GLUCOSE; Start 10/16/18 at 22:30 Dextrose (D50w Syringe) 50 ml Q15M PRN IV DECREASED GLUCOSE; Start 10/16/18 at 22:30 Glucagon (Glucagen) 1 mg Q15M PRN IM DECREASED GLUCOSE; Start 10/16/18 at 22:30 Glucose (Glutose) 15 gm Q15M PRN BUCCAL DECREASED GLUCOSE Last administered on 10/17/18at 21:33; Admin Dose 15 GM; Start 10/16/18 at 22:30 Heparin Sodium (Porcine) (Heparin (1000 Units/ml)) 4,000 unit AFTER DIALYSIS CATHETER Last administered on 10/22/18at 09:34; Admin Dose 4,000 UNIT; Start 10/18/18 at 10:30 Linezolid 300 ml @ 300 mls/hr Q12 IVPB Last administered on 10/23/18at 10:21; Admin Dose 300 MLS/HR; Start 10/19/18 at 11:00 Hydroxyzine HCl (Atarax) 25 mg Q6H PRN GTB ITCHING Last administered on 10/21/18at 09:27; Admin Dose 25 MG; Start 10/20/18 at 14:00 Calamine (Calamine Lotion) 1 applic BID PRN TOP itching; Start 10/20/18 at 14:00 Amlodipine Besylate (Norvasc) 5 mg BID GTB Last administered on 10/23/18at 08:50; Admin Dose 5 MG; Start 10/20/18 at 21:00 Lansoprazole (Prevacid) 30 mg DAILY@06 GTB Last administered on 10/23/18at 05:21; Admin Dose 30 MG; Start 10/21/18 at 06:00 Hydralazine HCl (Apresoline) 25 mg TID GTB Last administered on 10/23/18at 12:57; Admin Dose 25 MG; Start 10/21/18 at 21:00 Metoprolol Tartrate (Lopressor) 50 mg BID GTB Last administered on 10/23/18at 08:52; Admin Dose 50 MG; Start 10/21/18 at 21:00 Heparin Sodium (Porcine) (Heparin (1000 Units/ml)) 4,000 unit AFTER DIALYSIS CATHETER ; Start 10/21/18 at 19:00 Albumin Human 100 ml @ 100 mls/hr WITH DIALYSIS PRN IV SBP<90; Start 10/21/18 at 19:00 Results Result Diagram: 10/22/18 0444 10/22/18 0444 Results 24 hrs Laboratory Tests Test 10/22/18 20:38 10/23/18 08:34 10/23/18 12:52 10/23/18 17:28 Bedside Glucose 141 185 150 161 GEOFF KATHLEEN MD Oct 23, 2018 19:18
[2018-10-23] MEDS: hydrOXYzine HCL 25 MG TAB GTB PRN (23:17)
[2018-10-24 01:16] VITALS: BP 137/60; PULSE 84; RESP 18
--- NOTE | 2018-10-24 01:17 | PN ---
DATE: 10/23/2018 SUBJECTIVE: The patient was seen, comfortable with no complaints. Appetite is borderline not eating too much, but she does have bolus feedings via G-tube. The patient is currently on line rest as pat aurelia's Perm-A-Cath was removed. PHYSICAL EXAMINATION: VITAL SIGNS: Temperature 97.4, pulse 78, respirations 18, blood pressure 142/66, saturation 95% on r oom air. GENERAL: No acute distress. The patient is frail, pale. CARDIOVASCULAR: S1, S2, regular rate. LUNGS: Clear. ABDOMEN: Soft. G-tube in place. EXTREMITIES: No clubbing, cyanosis, or edema. LABORATORY DATA: No new labs today. Last glucose level 161, 150, and 185. The patient repeated blo od cultures on 10/22/2018, which shows no growth. Again, blood cultures previously did show VRE. Th e patient is on linezolid. Catheter tip culture is pending. MEDICATIONS: Reviewed and include: 1. Hydralazine. 2. Lopressor. 3. Heparin. 4. Albumin p.r.n. 5. Prevacid. 6. Norvasc. 7. Atarax. 8. Calamine. 9. Linezolid. 10. Colace. 11. Folic acid. 12. Kianna-Roque. 13. Tradjenta. 14. Accu-Cheks. 15. Hypoglycemia protocol. 16. Ferrous sulfate. 17. MiraLax. 18. Seroquel. 19. Ativan. 20. Senna. 21. Zofran. 22. Tylenol. ASSESSMENT AND PLAN: This is an 83-year-old [place] female with history of end-stage renal disease, chronic obstructive pulmonary disease, vascular dementia and cerebrovascular accident who presented with hypotension, encephalopathy, was found to have bacteremia, likely due to line sepsis, also urina ry tract infection. 1. Respiratory. Stable off oxygen. 2. Cardiovascular. Continue above blood pressure meds. 3. Diabetes mellitus. Glucose levels are in the 100s. Continue the same. 4. Dysphagia. Continue G-tube feeding and oral feeding for gratification with aspiration precaution s. 5. Psychiatric disorder, on Seroquel. Mood appears to be stable. 6. Bacteremia, on Zyvox. We will need to be on it for 2 weeks. 7. End-stage renal disease. A dialysis access will be done likely on Thursday as currently patient is receiving antibiotics for line sepsis. 8. Anemia. Epogen p.r.n. Currently, no need for transfusion. 9. Continue Protonix for GI prophylaxis. 10. Continue supportive care. Patient with a 1:1 sitter due to danger to self, history of falls. W e will follow. Dictated By: DYLON HULL/MADAN Conf#: [id number] DID#: [id number]
[2018-10-24] MEDS: ACCU-CHEK XX SCH ×6 (01:31→21:27)
[2018-10-24] MEDS: hydrOXYzine HCL 25 MG TAB GTB PRN (04:39)
--- NOTE | 2018-10-24 05:15 | NUR ---
EOSS: Patient remain stable. No s/s of SOB or any discomfort noted. Patient 1:[address] Bed in low position and locked. IV site on LAC infiltrated, not successful IV insertion x2, will endorse to morning nurse.
[2018-10-24] MEDS: LANSOPRAZOLE 30 MG CAP GTB SCH (06:14)
[2018-10-24 07:18] VITALS: BP 141/65; PULSE 78; RESP 16
[2018-10-24] MEDS: FOLIC ACID 1 MG TAB GTB SCH (08:14)
[2018-10-24] MEDS: QUETIAPINE 25 MG TAB GTB SCH ×2 (08:15→20:23)
[2018-10-24] MEDS: AMLODIPINE 5 MG TAB GTB SCH ×2 (08:15→20:23)
[2018-10-24] MEDS: DOCUSATE SODIUM 10 MG/ML (10ML CUP) GTB SCH (08:15)
[2018-10-24] MEDS: FERROUS SULFATE 60 MG/ML 5ML CUP GTB SCH ×2 (08:15→20:23)
[2018-10-24] MEDS: MULTIVIT/CA CARB/B CMPLX/FA TAB GTB SCH (08:15)
[2018-10-24] MEDS: METOPROLOL 50 MG TAB GTB SCH ×2 (08:15→20:23)
[2018-10-24] MEDS: SENNA TAB GTB SCH ×2 (08:15→20:23)
[2018-10-24] MEDS: LINAGLIPTIN 5 MG TABLET G-TUBE SCH (08:16)
[2018-10-24] MEDS: LINEZOLID 600 MG/D5W (PMX) 300 ML IVPB SCH ×3 (10:25→21:59)
--- NOTE | 2018-10-24 11:12 | CONS ---
Date/Time of Note Date/Time of Note DATE: 10/24/18 TIME: 11:08 Consultation Date/Type/Reason Admit Date/Time Oct 16, 2018 at 18:45 Initial Consult Date Type of Consult SUBJECTIVE: Pt is awake, alert, afebrile. S/P Permacath removal. VS: stable. T:98.0 LABS: Reviewed. WBC-7.1 Indwelling: Right chest permacath(removed), PEG Microbiology: Blood cultures since admission grew VRE. Repeat blood cultures from HD cath + are negative. Catheter Culture upon removal: KAMI STAIN Final Gram stain not appropriate for this specimen type WOUND CULTURE Preliminary Organism 1 ENTEROCOCCUS SPECIES QUANTITY Antimicrobials: Zyvox Chest x-ray on admission revealed left lower lung field subsegmental atelectasis no focal consolidation pleural effusion or pneumothorax Physical examination: GEN:Chronically ill-appearing elderly woman who is in no distress. Head atraumatic normocephalic. Neck is supple. Chest rise symmetrical breath sounds diminished bases. Heart: S1-S2. Abdomen soft bowel sounds present Extremities without edema Assessment: 1. Sepsis with VRE bacteremia 2 to infected Pcath 2. Positive urinalysis on admission, urine culture came back negative 3. End-stage renal disease, hemodialysis dependent 4. Dementia 5. Failure to thrive 6. Diabetes Plan: Patient remains stable. S/P removal of pcath. Will continue current abx. Repeat blood cultures are negative. Cath tip culture is pending final results. Exam/Review of Systems Vital Signs Vitals Vital Signs Date Temp Pulse Resp B/P (MAP) Pulse Ox O2 O2 Flow FiO2 Time Delivery Rate 10/24/18 98.0 78 16 141/65 100 Room Air 07:18 (90) Intake and Output 10/23/18 10/23/18 10/24/18 1515:00 23:00 07:00 IntakeIntake Total 300 ml 670 ml 150 ml BalanceBalance 300 ml 670 ml 150 ml Medications Medications Current Medications Docusate Sodium (Colace Liquid Cup) 100 mg DAILY GTB Last administered on 10/24/18at 08:15; Admin Dose 100 MG; Start 10/17/18 at 09:00 Ferrous Sulfate (Feosol Liquid Cup) 330 mg BID GTB Last administered on 10/24/18at 08:15; Admin Dose 330 MG; Start 10/16/18 at 22:00 Folic Acid (Folic Acid) 1 mg DAILY GTB Last administered on 10/24/18at 08:14; Admin Dose 1 MG; Start 10/17/18 at 09:00 Insulin Detemir (Levemir) 8 units DAILY@0800 SC Last administered on 10/17/18at 08:40; Admin Dose 8 UNITS; Start 10/17/18 at 08:00; Status Hold Polyethylene Glycol (Miralax) 8.5 gm DAILY PRN GTB CONSTIPATION; Start 10/16/18 at 22:00 Multivit/Ca Carb/ B Cmplx/FA/Prenat (Kianna-Roque) 1 tab DAILY GTB Last administered on 10/24/18at 08:15; Admin Dose 1 TAB; Start 10/17/18 at 09:00 Quetiapine Fumarate (Seroquel) 25 mg BID GTB Last administered on 10/24/18at 08:15; Admin Dose 25 MG; Start 10/16/18 at 22:00 Linagliptin (Tradjenta) 5 mg DAILY G-TUBE Last administered on 10/24/18 08:16; Admin Dose 5 MG; Start 10/17/18 at 09:00 Diagnostic Test (Pha) (Accu-Chek) 1 ea AC MEALS AND BEDTIME XX Last administered on 10/24/18at 07:56; Admin Dose 1 EA; Start 10/17/18 at 07:00 Lorazepam (Ativan) 1 mg Q8H PRN GTB ANXIETY Last administered on 10/23/18at 22:30; Admin Dose 1 MG; Start 10/16/18 at 22:00 Senna (Senokot) 1 tab BID GTB Last administered on 10/24/18at 08:15; Admin Dose 1 TAB; Start 10/16/18 at 22:00 Ondansetron HCl (Zofran Inj) 4 mg Q6H PRN IV NAUSEA AND/OR VOMITING; Start 10/16/18 at 22:00 Acetaminophen (Tylenol Liquid) 650 mg Q6 PRN GTB PAIN Last administered on 10/19/18at 16:59; Admin Dose 650 MG; Start 10/16/18 at 22:00 Diagnostic Test (Pha) (Accu-Chek) 1 ea 02 XX Last administered on 10/23/18at 02:23; Admin Dose 1 EA; Start 10/17/18 at 02:00 Insulin Aspart (Novolog Insulin Pen) NOVOLOG *MODERATE* ALGORITHM WITH MEALS BEDTIME SC Last administered on 10/17/18at 17:48; Admin Dose 4 UNIT; Start 10/17/18 at 08:00; Status Hold Miscellaneous Information 1 ea NOTE XX ; Start 10/16/18 at 22:30 Glucose (Glutose) 15 gm Q15M PRN PO DECREASED GLUCOSE; Start 10/16/18 at 22:30 Glucose (Glutose) 22.5 gm Q15M PRN PO DECREASED GLUCOSE; Start 10/16/18 at 22:30 Dextrose (D50w Syringe) 25 ml Q15M PRN IV DECREASED GLUCOSE; Start 10/16/18 at 22:30 Dextrose (D50w Syringe) 50 ml Q15M PRN IV DECREASED GLUCOSE; Start 10/16/18 at 22:30 Glucagon (Glucagen) 1 mg Q15M PRN IM DECREASED GLUCOSE; Start 10/16/18 at 22:30 Glucose (Glutose) 15 gm Q15M PRN BUCCAL DECREASED GLUCOSE Last administered on 10/17/18at 21:33; Admin Dose 15 GM; Start 10/16/18 at 22:30 Heparin Sodium (Porcine) (Heparin (1000 Units/ml)) 4,000 unit AFTER DIALYSIS CATHETER Last administered on 10/22/18at 09:34; Admin Dose 4,000 UNIT; Start 10/18/18 at 10:30 Linezolid 300 ml @ 300 mls/hr Q12 IVPB Last administered on 10/24/18at 10:25; Admin Dose 300 MLS/HR; Start 10/19/18 at 11:00 Hydroxyzine HCl (Atarax) 25 mg Q6H PRN GTB ITCHING Last administered on 10/24/18at 04:39; Admin Dose 25 MG; Start 10/20/18 at 14:00 Calamine (Calamine Lotion) 1 applic BID PRN TOP itching; Start 10/20/18 at 14:00 Amlodipine Besylate (Norvasc) 5 mg BID GTB Last administered on 10/24/18at 08:15; Admin Dose 5 MG; Start 10/20/18 at 21:00 Lansoprazole (Prevacid) 30 mg DAILY@06 GTB Last administered on 10/24/18at 06:14; Admin Dose 30 MG; Start 10/21/18 at 06:00 Hydralazine HCl (Apresoline) 25 mg TID GTB Last administered on 10/24/18at 08:15; Admin Dose 25 MG; Start 10/21/18 at 21:00 Metoprolol Tartrate (Lopressor) 50 mg BID GTB Last administered on 10/24/18at 08:15; Admin Dose 50 MG; Start 10/21/18 at 21:00 Heparin Sodium (Porcine) (Heparin (1000 Units/ml)) 4,000 unit AFTER DIALYSIS CATHETER ; Start 10/21/18 at 19:00 Albumin Human 100 ml @ 100 mls/hr WITH DIALYSIS PRN IV SBP<90; Start 10/21/18 at 19:00 Results Result Diagram: 10/24/1828 10/24/18 0528 Results 24 hrs Laboratory Tests Test 10/23/18 12:52 10/23/18 17:28 10/23/18 21:38 10/24/18 05:28 Bedside Glucose 150 161 138 White Blood 7.1 Count Red Blood Count 3.59 L Hemoglobin 8.8 L Hematocrit 28.6 L Mean Corpuscular 79.7 L Volume Mean Corpuscular 24.5 L Hemoglobin Mean Corpuscular 30.8 L Hemoglobin Mckayla nt Red Cell 19.8 H Distribution Width Platelet Count 218 Mean Platelet 11.9 H Volume Immature 0.400 Granulocytes % Neutrophils % 58.2 Lymphocytes % 19.1 Monocytes % 8.4 Eosinophils % 13.6 H Basophils % 0.3 Nucleated Red 0.0 Blood Cells % Immature 0.030 Granulocytes # Neutrophils # 4.1 Lymphocytes # 1.4 Monocytes # 0.6 Eosinophils # 1.0 H Basophils # 0.0 Nucleated Red 0.0 Blood Cells # Sodium Level 133 L Potassium Level 4.5 Chloride Level 94 L Carbon Dioxide 29 Level Anion Gap 10 Blood Urea 49 H Nitrogen Creatinine 2.45 H Est Glomerular Filtrat Rate mL/min Glucose Level 162 Calcium Level 8.6 Phosphorus Level 4.6 Magnesium Level 2.1 Test 10/24/18 07:55 Bedside Glucose 136 SCOTT SHEEHAN Oct 24, 2018 11:12
[2018-10-24 12:51] VITALS: BP 126/58; PULSE 80; RESP 20
[2018-10-24 13:49] VITALS: BP 134/63; PULSE 84; RESP 20
--- NOTE | 2018-10-24 17:21 | CONS ---
Date/Time of Note Date/Time of Note DATE: 10/24/18 TIME: 17:20 Assessment/Plan Assessment/Plan Chief Complaint/Hosp Course 1. SEPSIS on antibiotic 2. s/p ams 3. Mild hyponatremia. 4. End-stage renal disease on hemodialysis. 5. Diabetes. 6. hx hip fracture 7. History of vascular dementia. 8. Hypertension. 9. History of falls. 10. Anemia. 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 PLAN ANTIBIOTIC CONTINUE HD cath placement am Consultation Date/Type/Reason Admit Date/Time Oct 16, 2018 at 18:45 Initial Consult Date RENAL NO SOB NO CP permacath am 24 HR Interval Summary Constitutional: no complaints Exam/Review of Systems Vital Signs Vitals Vital Signs Date Temp Pulse Resp B/P (MAP) Pulse Ox O2 O2 Flow FiO2 Time Delivery Rate 10/24/18 98.7 84 20 134/63 98 Room Air 13:49 (86) Intake and Output 10/23/18 10/23/18 10/24/18 1515:00 23:00 07:00 IntakeIntake Total 300 ml 670 ml 150 ml BalanceBalance 300 ml 670 ml 150 ml Exam Respiratory: clear to auscultation Cardiovascular: regular rate and rhythm Gastrointestinal: soft, bowel sounds (+) Extremities: No edema Medications Medications Current Medications Docusate Sodium (Colace Liquid Cup) 100 mg DAILY GTB Last administered on 10/24/18at 08:15; Admin Dose 100 MG; Start 10/17/18 at 09:00 Ferrous Sulfate (Feosol Liquid Cup) 330 mg BID GTB Last administered on 10/24/18 08:15; Admin Dose 330 MG; Start 10/16/18 at 22:00 Folic Acid (Folic Acid) 1 mg DAILY GTB Last administered on 10/24/18at 08:14; Admin Dose 1 MG; Start 10/17/18 at 09:00 Insulin Detemir (Levemir) 8 units DAILY@0800 SC Last administered on 10/17/18at 08:40; Admin Dose 8 UNITS; Start 10/17/18 at 08:00; Status Hold Polyethylene Glycol (Miralax) 8.5 gm DAILY PRN GTB CONSTIPATION; Start 10/16/18 at 22:00 Multivit/Ca Carb/ B Cmplx/FA/Prenat (Kianna-Roque) 1 tab DAILY GTB Last administered on 10/24/18 08:15; Admin Dose 1 TAB; Start 10/17/18 at 09:00 Quetiapine Fumarate (Seroquel) 25 mg BID GTB Last administered on 10/24/18at 08:15; Admin Dose 25 MG; Start 10/16/18 at 22:00 Linagliptin (Tradjenta) 5 mg DAILY G-TUBE Last administered on 10/24/18 08:16; Admin Dose 5 MG; Start 10/17/18 at 09:00 Diagnostic Test (Pha) (Accu-Chek) 1 ea AC MEALS AND BEDTIME XX Last administered on 10/24/18 11:30; Admin Dose 1 EA; Start 10/17/18 at 07:00 Lorazepam (Ativan) 1 mg Q8H PRN GTB ANXIETY Last administered on 10/23/18 22:30; Admin Dose 1 MG; Start 10/16/18 at 22:00 Senna (Senokot) 1 tab BID GTB Last administered on 10/24/18 08:15; Admin Dose 1 TAB; Start 10/16/18 at 22:00 Ondansetron HCl (Zofran Inj) 4 mg Q6H PRN IV NAUSEA AND/OR VOMITING; Start 10/16/18 at 22:00 Acetaminophen (Tylenol Liquid) 650 mg Q6 PRN GTB PAIN Last administered on 10/19/18at 16:59; Admin Dose 650 MG; Start 10/16/18 at 22:00 Diagnostic Test (Pha) (Accu-Chek) 1 ea 02 XX Last administered on 10/23/18at 02:23; Admin Dose 1 EA; Start 10/17/18 at 02:00 Insulin Aspart (Novolog Insulin Pen) NOVOLOG *MODERATE* ALGORITHM WITH MEALS BEDTIME SC Last administered on 10/17/18at 17:48; Admin Dose 4 UNIT; Start 10/17/18 at 08:00; Status Hold Miscellaneous Information 1 ea NOTE XX ; Start 10/16/18 at 22:30 Glucose (Glutose) 15 gm Q15M PRN PO DECREASED GLUCOSE; Start 10/16/18 at 22:30 Glucose (Glutose) 22.5 gm Q15M PRN PO DECREASED GLUCOSE; Start 10/16/18 at 22:30 Dextrose (D50w Syringe) 25 ml Q15M PRN IV DECREASED GLUCOSE; Start 10/16/18 at 22:30 Dextrose (D50w Syringe) 50 ml Q15M PRN IV DECREASED GLUCOSE; Start 10/16/18 at 22:30 Glucagon (Glucagen) 1 mg Q15M PRN IM DECREASED GLUCOSE; Start 10/16/18 at 22:30 Glucose (Glutose) 15 gm Q15M PRN BUCCAL DECREASED GLUCOSE Last administered on 10/17/18at 21:33; Admin Dose 15 GM; Start 10/16/18 at 22:30 Linezolid 300 ml @ 300 mls/hr Q12 IVPB Last administered on 10/24/18at 10:25; Admin Dose 300 MLS/HR; Start 10/19/18 at 11:00 Hydroxyzine HCl (Atarax) 25 mg Q6H PRN GTB ITCHING Last administered on at 04:39; Admin Dose 25 MG; Start 10/20/18 at 14:00 Calamine (Calamine Lotion) 1 applic BID PRN TOP itching; Start 10/20/18 at 14:00 Amlodipine Besylate (Norvasc) 5 mg BID GTB Last administered on 10/24/18at 08:15; Admin Dose 5 MG; Start 10/20/18 at 21:00 Lansoprazole (Prevacid) 30 mg DAILY@06 GTB Last administered on 10/24/18at 06:14; Admin Dose 30 MG; Start 10/21/18 at 06:00 Hydralazine HCl (Apresoline) 25 mg TID GTB Last administered on 10/24/18at 13:53; Admin Dose 25 MG; Start 10/21/18 at 21:00 Metoprolol Tartrate (Lopressor) 50 mg BID GTB Last administered on 10/24/18at 08:15; Admin Dose 50 MG; Start 10/21/18 at 21:00 Heparin Sodium (Porcine) (Heparin (1000 Units/ml)) 4,000 unit AFTER DIALYSIS CATHETER ; Start 10/21/18 at 19:00 Albumin Human 100 ml @ 100 mls/hr WITH DIALYSIS PRN IV SBP<90; Start 10/21/18 at 19:00 Results Result Diagram: 10/24/18 0528 10/24/18 05 Results 24 hrs Laboratory Tests Test 10/23/18 17:28 10/23/18 21:38 10/24/18 05:28 10/24/18 07:55 Bedside Glucose 161 138 136 White Blood 7.1 Count Red Blood Count 3.59 L Hemoglobin 8.8 L Hematocrit 28.6 L Mean Corpuscular 79.7 L Volume Mean Corpuscular 24.5 L Hemoglobin Mean Corpuscular 30.8 L Hemoglobin Mckayla nt Red Cell 19.8 H Distribution Width Platelet Count 218 Mean Platelet 11.9 H Volume Immature 0.400 Granulocytes % Neutrophils % 58.2 Lymphocytes % 19.1 Monocytes % 8.4 Eosinophils % 13.6 H Basophils % 0.3 Nucleated Red 0.0 Blood Cells % Immature 0.030 Granulocytes # Neutrophils # 4.1 Lymphocytes # 1.4 Monocytes # 0.6 Eosinophils # 1.0 H Basophils # 0.0 Nucleated Red 0.0 Blood Cells # Sodium Level 133 L Potassium Level 4.5 Chloride Level 94 L Carbon Dioxide 29 Level Anion Gap 10 Blood Urea 49 H Nitrogen Creatinine 2.45 H Est Glomerular Filtrat Rate mL/min Glucose Level 162 Calcium Level 8.6 Phosphorus Level 4.6 Magnesium Level 2.1 Test 10/24/18 12:31 Bedside Glucose 191 GEOFF KATHLEEN MD Oct 24, 2018 17:21
--- NOTE | 2018-10-24 17:37 | NUR ---
Notified MD 2 consecutive BG check >180, NNO at this time
--- NOTE | 2018-10-24 18:36 | NUR ---
End of Shift Notes Dialysis order noted, per Dr Stringer patient will have a permacath inserted tomorrow. Attempted to verify with Dr Sagastume however Dr Torres is transitions manager rn and unsure of schedule. Notified Dr Myke MD made aware, orders to wait until tomorrow AM to verify then place HD orders. Currently patient does not have a dialysis access. All other needs attended to, no complaints of pain, kept clean and dry tolerating tube feeding well. Hourly roundings done, call light within reach, continued on 1:1 sitter due to fall risk.
[2018-10-24 19:17] VITALS: BP 162/72; PULSE 90; RESP 18
--- NOTE | 2018-10-24 19:18 | PN ---
DATE: 10/24/2018 SUBJECTIVE: The patient was seen, comfortable. The patient is currently receiving IV antibiotics. His PermCath was removed due to line sepsis/bacteremia. The patient overall appears to be comfortabl e. Daughter is at bedside. PHYSICAL EXAMINATION: VITAL SIGNS: Temperature 98.7, pulse 84, respirations 20, blood pressure 134/63, saturation 98% on r oom air. GENERAL: In no acute distress. The patient is frail, pale, cachectic. CARDIOVASCULAR: S1, S2. LUNGS: Decreased bilaterally, otherwise clear. ABDOMEN: Soft. G-tube in place. EXTREMITIES: No clubbing, cyanosis or edema. LABORATORY DATA: White count today 7.1, hemoglobin 8.8, hematocrit 29, platelet count of 218, neutro phils 58%, lymphocytes 19%. Chemistry: Sodium is 133, potassium 4.5, chloride 94, bicarbonate 29, B UN is 49, creatinine 2.45, glucose 162. Last glucose level is 191. The last positive blood culture was on 10/20/2018. Repeat blood cultures on 10/23/2018 negative. Wound culture showed Enterococcus species. This is from the catheter line. We will follow with results. MEDICATIONS: 1. Hydralazine. 2. Lopressor. 3. Heparin. 4. Albumin. 5. Prevacid. 6. Norvasc. 7. Atarax. 8. Calamine. 9. Linezolid. 10. Colace. 11. Folic acid. 12. Kianna-Roque. 13. Tradjenta. 14. Accu-Cheks hypoglycemia protocol. 15. Ferrous sulfate. 16. MiraLax. 17. Seroquel. 18. Ativan. 19. Senna. 20. Zofran. 21. Tylenol. All medications were reviewed. ASSESSMENT AND PLAN: This is an 83-year-old [place] female with history of end-stage renal disease, chronic obstructive pulmonary disease, vascular dementia, cerebrovascular accident, who presented wi th hypotension, was found to have line sepsis. 1. Respiratory: Off oxygen, stable. 2. Cardiovascular: Continue above blood pressure meds. 3. Diabetes mellitus. Glucose levels are in the 100s. Continue Tradjenta and continue insulin slid ing scale. 4. Dysphagia. Has a G-tube. Also, oral feeding for gratification. 5. Psychiatric disorder. Mood appears to be stable. Seroquel in place. 6. Bacteremia, on Zyvox. Follow up catheter tip cultures and adjustment of antibiotics per ID. 7. End-stage renal disease. The patient will need another access with a PermCath hopefully tomorrow . 8. Anemia. Continue Epogen. 9. End-stage renal disease. Again, dialysis is currently on hold and she will need a line as it was removed due to line sepsis. 10. Continue supportive care. The patient is with 1:1 sitter due to risk of fall. 11. Remain stable. Case was discussed with daughter. Dictated By: DYLON HULL/NTS Conf#: [id number] DID#: [id number] CC: MIKEL REDDY MD;*EndCC*
[2018-10-24 20:30] VITALS: BP 129/63; PULSE 85
[2018-10-24] MEDS: LORAZEPAM 1 MG TAB GTB PRN (21:42)
[2018-10-25] VITALS (20 sets, daily range): BP systolic 107–169; BP diastolic 49–87; PULSE 84–110; RESP 16–20
--- NOTE | 2018-10-25 01:01 | NUR ---
$100 noted a $100.oo bill on a cup inside her gown. asked her if she wants it to be send to security for safekeeping but pt refused. advised the product safety technician to keep an eye on it and endorse accordingly. advised pt to give it back to her daughter in am and pt agreed. Addendum: 10/25/18 at 0722 by CORAL JACQUES RN fake $ 100 bill as endorsed by yesterday oliva juárez.
--- NOTE | 2018-10-25 05:18 | NUR ---
shift note had been restless the whole night. medicated with ativan x1 po. vs taken and recorded. accucheck done. cooperative but forgetful. maintained on contact isolation. aviation safety equipment technician at all times. placed on npo at midnight. scheduled for [address] estevez. no orders to get consent yet. due meds given. bed alarm on.
[2018-10-25] MEDS: LANSOPRAZOLE 30 MG CAP GTB SCH (05:37)
[2018-10-25] MEDS: ACCU-CHEK XX SCH ×4 (07:00→20:18)
--- NOTE | 2018-10-25 07:25 | NUR ---
HD confirmation #: [id number]. Per report, patient scheduled for permacath placement later today. HD to be done after placement
--- NOTE | 2018-10-25 08:48 | SIPON ---
Date/Time of Note Date/Time of Note DATE: 10/25/18 TIME: 08:46 Operative Report Preoperative Diagnosis ESRD Postoperative Diagnosis same Operation/Procedure Performed L IJ permacath placement using ultrasound and fluoroscopic guidance Surgeon see signature line assistant education director none Anesthesia: other Estimated blood loss: minimal Transfusion Required none Specimen none Grafts/Implants 18 cm tunneled hemodialysis catheter placement Complications none MIKEL REDDY MD Oct 25, 2018 08:48
[2018-10-25] MEDS ORDERED: LIDOCAINE 2% (MDV) 20 ML INJ ONE (08:50)
[2018-10-25] MEDS ORDERED: HEPARIN 1000 UNITS/ML 10 ML INJ ONE (08:51)
[2018-10-25] MEDS: AMLODIPINE 5 MG TAB GTB SCH ×2 (09:00→20:13)
[2018-10-25] MEDS: METOPROLOL 50 MG TAB GTB SCH ×2 (09:00→20:13)
--- NOTE | 2018-10-25 09:09 | OPR ---
DATE OF OPERATION: 10/25/2018 PREOPERATIVE DIAGNOSIS: End-stage renal disease. POSTOPERATIVE DIAGNOSIS: End-stage renal disease. PROCEDURE PERFORMED: Insertion of left internal jugular vein tunneled hemodialysis catheter using ul trasound and fluoroscopic guidance. ANESTHESIA: Local anesthesia. ESTIMATED BLOOD LOSS: Minimal. COMPLICATIONS: No intraprocedural complications. INDICATIONS: This is an 83-year-old woman. She had an infected catheter removed last week and out f or 3 days. She needs to dialyze and she is very demented, so we brought her down today for insertion of a new left internal jugular vein Perm-A-Cath. I looked at the right IJ. There was thrombus in t he right IJ site so I am going to put it back in there especially recent catheter was removed that wa s infected. DESCRIPTION OF PROCEDURE: The patient was brought to the laborer/key man, placed on the table in supine pos ition. Left neck and chest wall were prepped and draped in the usual sterile fashion. I used ultras ound to identify the left internal jugular vein. It was fully compressible with no filling defects. I infiltrated over the vein at the base of the neck using about 10 mL of 1% Xylocaine using micropun cture needle to enter the vein under ultrasound guidance. An 0.018 wire was inserted through the nee dle into vein, and a micropuncture sheath was advanced over the wire into the vein and then advanced 0.035 Amplatz wire down through the heart into the inferior vena cava. I then anesthetized the tract down on to the left anterior chest wall below the clavicle using another 10 mL of 1% Xylocaine. I m jose daniel a small incision below the clavicle and tunneled 18 cm tunneled hemodialysis catheter between the 2 incisions leaving the cuff in the mid portion of the tract. I then dilated over the wire and then placed a large peel away sheath over the wire into the right atrium. I then removed the wire and th e obturator and placed into the catheter through the peel-away sheath, peeled the sheath away leaving the tip of the catheter in the right atrium. There was good backflow from both ports and both flush ed easily. I then left 1.2 mL of heparin and of 1000 unit per mL heparin in each port. I anchored t he catheter to the skin with 3-0 nylon sutures. I put some 4-0 Monocryl sutures at the puncture site in the neck and also around the exit site to keep it from oozing. A very bulky dressing was then ap plied and she was then transferred back to the room in stable condition. She tolerated the procedure well without any complication. The catheter is ready to use. Dictated By: MIKEL JONES/MADAN Conf#: [id number] DID#: [id number] CC: GEOFF KATHLEEN MD; MIKEL REDDY MD; DYLON WALLS MD; JOSE RAUL ANDREWS;*EndCC*
[2018-10-25] MEDS: LORAZEPAM 1 MG TAB GTB PRN ×2 (09:47→16:57)
[2018-10-25] MEDS: FERROUS SULFATE 60 MG/ML 5ML CUP GTB SCH ×2 (09:47→20:14)
[2018-10-25] MEDS: LINAGLIPTIN 5 MG TABLET G-TUBE SCH (09:47)
[2018-10-25] MEDS: QUETIAPINE 25 MG TAB GTB SCH ×2 (09:48→20:13)
[2018-10-25] MEDS: DOCUSATE SODIUM 10 MG/ML (10ML CUP) GTB SCH (09:48)
[2018-10-25] MEDS: FOLIC ACID 1 MG TAB GTB SCH (09:48)
[2018-10-25] MEDS: SENNA TAB GTB SCH ×2 (09:48→20:13)
[2018-10-25] MEDS: MULTIVIT/CA CARB/B CMPLX/FA TAB GTB SCH (09:48)
[2018-10-25] MEDS: LINEZOLID 600 MG/D5W (PMX) 300 ML IVPB SCH (10:21)
--- NOTE | 2018-10-25 10:34 | NUR ---
Permacath placed on left chest, noted with some bleeding upon arrival to the unit, pressure applied x 20 minutes, dressing changed. No signs of distress, remains at baseline mental status, will monitor closely.
--- NOTE | 2018-10-25 15:02 | CONS ---
Date/Time of Note Date/Time of Note DATE: 10/25/18 TIME: 15:01 Assessment/Plan Assessment/Plan Chief Complaint/Hosp Course No acute changes patient is status post left chest permacath, repeat blood cultures negative, she remains on Zyvox Chest x-ray on admission revealed left lower lung field subsegmental atelectasis no focal consolidation pleural effusion or pneumothorax Physical examination: Chronically ill-appearing elderly woman who is awake, confused, in no distress. Head atraumatic normocephalic. Neck is supple. Chest rise symmetrical breath sounds diminished bases. Heart: S1-S2. Abdomen soft bowel sounds present extremities without edema Assessment: 1. Sepsis with VRE bacteremia 2 to infected Pcath 2. Positive urinalysis on admission, urine culture came back negative 3. End-stage renal disease, hemodialysis dependent 4. Dementia 5. Failure to thrive 6. Diabetes Plan: Patient remains stable, repeat blood cultures negative, status post new permacath, continue abx for 2 more weeks may change to IV daptomycin DW staff Consultation Date/Type/Reason Admit Date/Time Oct 16, 2018 at 18:45 Initial Consult Date Type of Consult ID Exam/Review of Systems Vital Signs Vitals Vital Signs Date Temp Pulse Resp B/P (MAP) Pulse Ox O2 O2 Flow FiO2 Time Delivery Rate 10/25/18 97.9 90 16 132/59 95 14:56 (83) 10/25/18 Room Air 02:00 Intake and Output 10/24/18 10/24/18 10/25/18 1515:00 23:00 07:00 IntakeIntake Total 400 ml 350 ml 300 ml BalanceBalance 400 ml 350 ml 300 ml Medications Medications Current Medications Docusate Sodium (Colace Liquid Cup) 100 mg DAILY GTB Last administered on 10/25/18at 09:48; Admin Dose 100 MG; Start 10/17/18 at 09:00 Ferrous Sulfate (Feosol Liquid Cup) 330 mg BID GTB Last administered on 10/25/18at 09:47; Admin Dose 330 MG; Start 10/16/18 at 22:00 Folic Acid (Folic Acid) 1 mg DAILY GTB Last administered on 10/25/18at 09:48; Admin Dose 1 MG; Start 10/17/18 at 09:00 Insulin Detemir (Levemir) 8 units DAILY@0800 SC Last administered on 10/17/18 08:40; Admin Dose 8 UNITS; Start 10/17/18 at 08:00; Status Hold Polyethylene Glycol (Miralax) 8.5 gm DAILY PRN GTB CONSTIPATION; Start 10/16/18 at 22:00 Multivit/Ca Carb/ B Cmplx/FA/Prenat (Kianna-Roque) 1 tab DAILY GTB Last administered on 10/25/18 09:48; Admin Dose 1 TAB; Start 10/17/18 at 09:00 Quetiapine Fumarate (Seroquel) 25 mg BID GTB Last administered on 10/25/18 09:48; Admin Dose 25 MG; Start 10/16/18 at 22:00 Linagliptin (Tradjenta) 5 mg DAILY G-TUBE Last administered on 10/25/18 09:47; Admin Dose 5 MG; Start 10/17/18 at 09:00 Diagnostic Test (Pha) (Accu-Chek) 1 ea AC MEALS AND BEDTIME XX Last administered on 10/25/18 11:30; Admin Dose 1 EA; Start 10/17/18 at 07:00 Lorazepam (Ativan) 1 mg Q8H PRN GTB ANXIETY Last administered on 10/24/18 21:42; Admin Dose 1 MG; Start 10/16/18 at 22:00 Senna (Senokot) 1 tab BID GTB Last administered on 10/25/18 09:48; Admin Dose 1 TAB; Start 10/16/18 at 22:00 Ondansetron HCl (Zofran Inj) 4 mg Q6H PRN IV NAUSEA AND/OR VOMITING; Start 10/16/18 at 22:00 Acetaminophen (Tylenol Liquid) 650 mg Q6 PRN GTB PAIN Last administered on 10/19/18 16:59; Admin Dose 650 MG; Start 10/16/18 at 22:00 Diagnostic Test (Pha) (Accu-Chek) 1 ea 02 XX Last administered on 10/23/18 02:23; Admin Dose 1 EA; Start 10/17/18 at 02:00 Insulin Aspart (Novolog Insulin Pen) NOVOLOG *MODERATE* ALGORITHM WITH MEALS BEDTIME SC Last administered on 10/17/18 17:48; Admin Dose 4 UNIT; Start 10/17/18 at 08:00; Status Hold Miscellaneous Information 1 ea NOTE XX ; Start 10/16/18 at 22:30 Glucose (Glutose) 15 gm Q15M PRN PO DECREASED GLUCOSE; Start 10/16/18 at 22:30 Glucose (Glutose) 22.5 gm Q15M PRN PO DECREASED GLUCOSE; Start 10/16/18 at 22:30 Dextrose (D50w Syringe) 25 ml Q15M PRN IV DECREASED GLUCOSE; Start 10/16/18 at 22:30 Dextrose (D50w Syringe) 50 ml Q15M PRN IV DECREASED GLUCOSE; Start 10/16/18 at 22:30 Glucagon (Glucagen) 1 mg Q15M PRN IM DECREASED GLUCOSE; Start 10/16/18 at 22:30 Glucose (Glutose) 15 gm Q15M PRN BUCCAL DECREASED GLUCOSE Last administered on 10/17/18at 21:33; Admin Dose 15 GM; Start 10/16/18 at 22:30 Linezolid 300 ml @ 300 mls/hr Q12 IVPB Last administered on 10/25/18at 10:21; Admin Dose 300 MLS/HR; Start 10/19/18 at 11:00 Hydroxyzine HCl (Atarax) 25 mg Q6H PRN GTB ITCHING Last administered on 10/24/18at 04:39; Admin Dose 25 MG; Start 10/20/18 at 14:00 Calamine (Calamine Lotion) 1 applic BID PRN TOP itching; Start 10/20/18 at 14:00 Amlodipine Besylate (Norvasc) 5 mg BID GTB Last administered on 10/24/18at 20:23; Admin Dose 5 MG; Start 10/20/18 at 21:00 Lansoprazole (Prevacid) 30 mg DAILY@06 GTB Last administered on 10/25/18at 05:37; Admin Dose 30 MG; Start 10/21/18 at 06:00 Hydralazine HCl (Apresoline) 25 mg TID GTB Last administered on 10/24/18at 20:23; Admin Dose 25 MG; Start 10/21/18 at 21:00 Metoprolol Tartrate (Lopressor) 50 mg BID GTB Last administered on 10/24/18at 20:23; Admin Dose 50 MG; Start 10/21/18 at 21:00 Heparin Sodium (Porcine) (Heparin (1000 Units/ml)) 4,000 unit AFTER DIALYSIS CATHETER ; Start 10/21/18 at 19:00 Albumin Human 100 ml @ 100 mls/hr WITH DIALYSIS PRN IV SBP<90; Start 10/21/18 at 19:00 Results Result Diagram: 10/24/18 0528 10/24/18 0528 Results 24 hrs Laboratory Tests Test 10/24/18 17:28 10/24/18 20:26 10/25/18 09:14 10/25/18 12:54 Bedside Glucose 183 181 161 205 PHYLICIA HOLCOMB NP Oct 25, 2018 15:02
--- NOTE | 2018-10-25 17:02 | CONS ---
Date/Time of Note Date/Time of Note DATE: 10/25/18 TIME: 17:00 Assessment/Plan Assessment/Plan Chief Complaint/Hosp Course 83 y/o with This is an 83-year-old female with: 1. Hypotension, could be secondary to sepsis as the patient has positive bacteremia/urinary tract infection VRE bactermia. s/p permcath removal and new placement The patient was continued on blood pressure medicines aggressively 2. Altered level of consciousness, likely secondary to metabolic encephalopathy, secondary to low blood pressures. vs Vascular dementia 3. Mild hyponatremia. 4. End-stage renal disease on hemodialysis. 5. Diabetes. 6. Dysphagia, status post G-tube feeding. 7. History of vascular dementia. 8. Hypertension. 9. History of falls. 10. Anemia. 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 S/P REMOVAL TODAY now with nre permcatth Plan - permcagth today - hd today -cw zyvox? Dapto> ? SNIF Will cover DAPTO -Appreciate vascular/ID consultation -bp medications have been resumed -Renally dose all meds Consultation Date/Type/Reason Admit Date/Time Oct 16, 2018 at 18:45 Initial Consult Date 24 HR Interval Summary Free Text/Dictation Pt got permcath today > Hd in progress Exam/Review of Systems Vital Signs Vitals Vital Signs Date Temp Pulse Resp B/P (MAP) Pulse Ox O2 O2 Flow FiO2 Time Delivery Rate 10/25/18 97.9 90 16 132/59 95 14:56 (83) 10/25/18 Room Air 02:00 Intake and Output 10/24/18 10/24/18 10/25/18 1515:00 23:00 07:00 IntakeIntake Total 400 ml 350 ml 300 ml BalanceBalance 400 ml 350 ml 300 ml Exam Respiratory: clear to auscultation Cardiovascular: regular rate and rhythm Gastrointestinal: soft, bowel sounds (+) Extremities: No edema permcath Medications Medications Current Medications Docusate Sodium (Colace Liquid Cup) 100 mg DAILY GTB Last administered on 10/25/18at 09:48; Admin Dose 100 MG; Start 10/17/18 at 09:00 Ferrous Sulfate (Feosol Liquid Cup) 330 mg BID GTB Last administered on 10/25/18at 09:47; Admin Dose 330 MG; Start 10/16/18 at 22:00 Folic Acid (Folic Acid) 1 mg DAILY GTB Last administered on 10/25/18 09:48; Admin Dose 1 MG; Start 10/17/18 at 09:00 Insulin Detemir (Levemir) 8 units DAILY@0800 SC Last administered on 10/17/18 08:40; Admin Dose 8 UNITS; Start 10/17/18 at 08:00; Status Hold Polyethylene Glycol (Miralax) 8.5 gm DAILY PRN GTB CONSTIPATION; Start 10/16/18 at 22:00 Multivit/Ca Carb/ B Cmplx/FA/Prenat (Kianna-Roque) 1 tab DAILY GTB Last administered on 10/25/18 09:48; Admin Dose 1 TAB; Start 10/17/18 at 09:00 Quetiapine Fumarate (Seroquel) 25 mg BID GTB Last administered on 10/25/18 09:48; Admin Dose 25 MG; Start 10/16/18 at 22:00 Linagliptin (Tradjenta) 5 mg DAILY G-TUBE Last administered on 10/25/18 09:47; Admin Dose 5 MG; Start 10/17/18 at 09:00 Diagnostic Test (Pha) (Accu-Chek) 1 ea AC MEALS AND BEDTIME XX Last administered on 10/25/18 11:30; Admin Dose 1 EA; Start 10/17/18 at 07:00 Lorazepam (Ativan) 1 mg Q8H PRN GTB ANXIETY Last administered on 10/25/18 16:57; Admin Dose 1 MG; Start 10/16/18 at 22:00 Senna (Senokot) 1 tab BID GTB Last administered on 10/25/18 09:48; Admin Dose 1 TAB; Start 10/16/18 at 22:00 Ondansetron HCl (Zofran Inj) 4 mg Q6H PRN IV NAUSEA AND/OR VOMITING; Start 10/16/18 at 22:00 Acetaminophen (Tylenol Liquid) 650 mg Q6 PRN GTB PAIN Last administered on 10/19/18 16:59; Admin Dose 650 MG; Start 10/16/18 at 22:00 Diagnostic Test (Pha) (Accu-Chek) 1 ea 02 XX Last administered on 10/23/18 02:23; Admin Dose 1 EA; Start 10/17/18 at 02:00 Insulin Aspart (Novolog Insulin Pen) NOVOLOG *MODERATE* ALGORITHM WITH MEALS BEDTIME SC Last administered on 10/17/18at 17:48; Admin Dose 4 UNIT; Start 10/17/18 at 08:00; Status Hold Miscellaneous Information 1 ea NOTE XX ; Start 10/16/18 at 22:30 Glucose (Glutose) 15 gm Q15M PRN PO DECREASED GLUCOSE; Start 10/16/18 at 22:30 Glucose (Glutose) 22.5 gm Q15M PRN PO DECREASED GLUCOSE; Start 10/16/18 at 22:30 Dextrose (D50w Syringe) 25 ml Q15M PRN IV DECREASED GLUCOSE; Start 10/16/18 at 22:30 Dextrose (D50w Syringe) 50 ml Q15M PRN IV DECREASED GLUCOSE; Start 10/16/18 at 22:30 Glucagon (Glucagen) 1 mg Q15M PRN IM DECREASED GLUCOSE; Start 10/16/18 at 22:30 Glucose (Glutose) 15 gm Q15M PRN BUCCAL DECREASED GLUCOSE Last administered on 10/17/18at 21:33; Admin Dose 15 GM; Start 10/16/18 at 22:30 Hydroxyzine HCl (Atarax) 25 mg Q6H PRN GTB ITCHING Last administered on 10/24/18at 04:39; Admin Dose 25 MG; Start 10/20/18 at 14:00 Calamine (Calamine Lotion) 1 applic BID PRN TOP itching; Start 10/20/18 at 14:00 Amlodipine Besylate (Norvasc) 5 mg BID GTB Last administered on 10/24/18at 20:23; Admin Dose 5 MG; Start 10/20/18 at 21:00 Lansoprazole (Prevacid) 30 mg DAILY@06 GTB Last administered on 10/25/18at 05:37; Admin Dose 30 MG; Start 10/21/18 at 06:00 Hydralazine HCl (Apresoline) 25 mg TID GTB Last administered on 10/24/18at 20:23; Admin Dose 25 MG; Start 10/21/18 at 21:00 Metoprolol Tartrate (Lopressor) 50 mg BID GTB Last administered on 10/24/18at 20:23; Admin Dose 50 MG; Start 10/21/18 at 21:00 Heparin Sodium (Porcine) (Heparin (1000 Units/ml)) 4,000 unit AFTER DIALYSIS CATHETER ; Start 10/21/18 at 19:00 Albumin Human 100 ml @ 100 mls/hr WITH DIALYSIS PRN IV SBP<90; Start 10/21/18 at 19:00 Linezolid (Zyvox) 600 mg BID GTB ; Start 10/25/18 at 21:00 Results Result Diagram: 10/24/18 0528 10/24/18 0528 Results 24 hrs Laboratory Tests Test 10/24/18 17:28 10/24/18 20:26 10/25/18 09:14 10/25/18 12:54 Bedside Glucose 183 181 161 205 JOSE RAUL ANDREWS MD Oct 25, 2018 17:02
--- NOTE | 2018-10-25 18:22 | NUR ---
End of Shift Notes Patient currently being dialyzed, alert and oriented x 1 verbally responsive, no signs of acute distress. Permacath on left chest, no signs of bleeding noted. Denies any pain, still noted with poor appetite, tolerating gtube bolus feeding well. No nausea/vomiting noted, able to sit up in chair during shift, kept clean and dry repositioned throughout shift, continued with 1:1 sitter for safety issues. Hourly roundings done, all needs attended to.
--- NOTE | 2018-10-25 19:02 | PN ---
DATE: 10/25/2018 SUBJECTIVE: The patient is seen. The patient is status post left IJ Perm-A-Cath placement. The pat ient tolerated the procedure well. The patient is now receiving dialysis with a new line. The patie nt is slightly anxious. PHYSICAL EXAMINATION: VITAL SIGNS: Temperature 97.9, pulse 101, respirations 16, blood pressure ____, saturation 98% on ro om air. GENERAL: No acute distress. HEENT: Head is normocephalic and atraumatic. The patient is frail. Temporal wasting. Anxious. CARDIOVASCULAR: S1, S2. LUNGS: Clear. ABDOMEN: Soft, nontender. G-tube in place. EXTREMITIES: No clubbing, cyanosis or edema. LABORATORY DATA: No new labs today. Last glucose level 205, 161, and 181. MEDICATIONS: The patient's current meds were all reviewed includin. Still on the Nasalide but now p.o. via G-tube 600 twice a day. 2. Hydralazine. 3. Lopressor. 4. Heparin. 5. Albumin. 6. Prevacid. 7. Norvasc. 8. Atarax. 9. Calamine. 10. Colace. 11. Folic acid. 12. Kianna-Roque. 13. Tradjenta. 14. Hypoglycemia protocol. 15. MiraLax. 16. Seroquel. 17. Ativan. 18. Senna. 19. Zofran. 20. Tylenol. ASSESSMENT AND PLAN: This is an 83-year-old Citizen Of [place] female with end-stage renal disease, chronic ob structive pulmonary disease, vascular dementia, and cerebrovascular accident who presented with hyper tension and was found to have line sepsis. 1. Respiratory. Off oxygen stable. 2. Cardiovascular. Continue above meds. Some meds are being placed on hold due to dialysis. 3. Diabetes mellitus. Continue Tradjenta and insulin sliding scale for now. 4. Dysphagia. Continue G-tube feeding and puree diet for oral gratification. 5. Psychiatric disorder. Mood overall stable, slightly anxious since she is getting dialysis. 6. Bacteremia, on Zyvox. We will need a total of two weeks. Repeat blood cultures are now negative . 7. Disposition. Hopefully, tomorrow back to the longterm facility. 8. Anemia. Continue Epogen. 9. End-stage renal disease, now on dialysis. Monitor electrolytes tomorrow. 10. If clinically better, but we will follow discharge planning for tomorrow. Dictated By: DYLON HULL/MADAN Conf#: [id number] DID#: [id number]
[2018-10-25] MEDS: HEPARIN 1000 UNITS/ML 10 ML INJ CATHETER SCH (19:42)
[2018-10-25] MEDS: ZYVOX 600 MG TAB GTB SCH (20:12)
[2018-10-25] MEDS: ACETAMINOPHEN 650MG/20.3ML CUP GTB PRN (20:14)
--- NOTE | 2018-10-25 21:55 | NUR ---
agitation and combative behavior patient was very agitated, paranoid, anxious and was hitting the 2 tax expert in their arms. bleeding noted to left subclavian permacath. tax expert tried to calm her down to no avail. called dr. hernandez and got an order for ativan 0.5mg iv x1. medicated patient and after 30 mins, she settles down and was able to change the dressing on her permacath. saturation check and was 96% on ra.
[2018-10-25] MEDS ORDERED: LORAZEPAM 2 MG INJ IV ONE (22:00)
--- NOTE | 2018-10-25 23:19 | NUR ---
bleeding noted an oozing blood in the patient's left subclavian permacath. pressure applied still bleeding continuous. applied surgicel and covered with gauze and abd pad and secured with paper tape. abdominal binder changed. will monitor.
[2018-10-26] VITALS (10 sets, daily range): BP systolic 100–194; BP diastolic 56–81; PULSE 75–101; RESP 17–20
--- NOTE | 2018-10-26 00:13 | NUR ---
Dr. Perez was informed of bleeding from permacath, BP 194/81, HR 87, patient's permacath started to ooze after dialysis then would stop. Patient started bleeding again and continues to bleed. Surgicell was applied, suture appears to be in place. ordered Hydralazine and Haldol because patient is also very agitated. Dr. Perez ordered to call the vascular surgeon.
--- NOTE | 2018-10-26 00:20 | NUR ---
Dr. Holm was informed of patient's status and per report from R.N, bleeding would stop but started to ooze again when patient moves. MD ordered to apply a sand bag.
[2018-10-26] MEDS: HALOPERIDOL 5 MG INJ IM PRN ×2 (00:27→22:53)
[2018-10-26] MEDS ORDERED: hydrALAzine 20 MG INJ IV ONE (00:30)
--- NOTE | 2018-10-26 00:50 | NUR ---
Maximus, Mediator was informed that we cannot locate a sand bag, he will follow up.
--- NOTE | 2018-10-26 00:58 | NUR ---
Dr. Perez was informed that patient is still restless, nurses at bedside trying to calm her down, haldol was given, permacath site still oozing. MD ordered to apply restraints.
--- NOTE | 2018-10-26 01:03 | NUR ---
Spoke with Maximus, Counselor At Law, he was informed that we are still looking for a sand bag. Will see patient.
[2018-10-26] MEDS ORDERED: DIPHENHYDRAMINE 50 MG INJ ONE (01:23)
[2018-10-26] MEDS ORDERED: HALOPERIDOL 5 MG INJ IM ONE (01:30)
[2018-10-26] MEDS ORDERED: LORAZEPAM 2 MG INJ IV ONE (01:30)
[2018-10-26] MEDS ORDERED: DIPHENHYDRAMINE 50 MG INJ IV ONE (01:30)
--- NOTE | 2018-10-26 01:45 | NUR ---
Dr. Perez was informed that CLEAN UP SUPERVISOR was called because patient's permacath site continued to bleed and patient was very restless.
--- NOTE | 2018-10-26 01:51 | NUR ---
Left a message for Kady on numbers listed on face sheet and board, no answer.
[2018-10-26] MEDS: ACCU-CHEK XX SCH ×5 (02:00→21:26)
--- NOTE | 2018-10-26 03:35 | NUR ---
director of manufacturing patient very agitated and restless. would pull on her left permacath and gt. sitter at bedside holding her and trying to calm her down but bleeding still continuous to left permacath. changed the dressing several times and surgicel was applied. charge was able to obtain an order for soft limb restraint. applied to patient. rn and mud jack operator was able to focus on applying pressure on her left subclavian permacath. but still bleeding would stop and start again. director of manufacturing was called as bp was elevated as documented. even after giving hydralazine 20mg iv. placed on monitor. director of manufacturing responded and applied pressure dressing to site. cbc was drawn and ordered sandbag and applied. dr. meyer came and ordered, haldol, ativan and benadryl. after 10 mins bleeding seems to stop, patient was calmer and bp improved. human resources safety manager still at bedside.
[2018-10-26] MEDS: LANSOPRAZOLE 30 MG CAP GTB SCH (06:11)
--- NOTE | 2018-10-26 06:52 | NUR ---
shift note patient still restless even with haldol, and ativan. still attempts to pull permacath. bilateral upper soft limb secured. bleeding somehow stopped to left upper chest. sand bag off. gt clamped. binder saturated with blood. ordered a new one. incontinent care given. turned and repositioned. vs taken and recorded. bp improved with hydralazine. accucheck done. maintained on contact isolation. heplock x2 patent. product safety technician at bedside. bed alarm on.
[2018-10-26] MEDS: DOCUSATE SODIUM 10 MG/ML (10ML CUP) GTB SCH (08:24)
[2018-10-26] MEDS: MULTIVIT/CA CARB/B CMPLX/FA TAB GTB SCH (08:24)
[2018-10-26] MEDS: ZYVOX 600 MG TAB GTB SCH ×3 (08:24→23:44)
[2018-10-26] MEDS: FOLIC ACID 1 MG TAB GTB SCH (08:24)
[2018-10-26] MEDS: FERROUS SULFATE 60 MG/ML 5ML CUP GTB SCH ×2 (08:24→21:26)
[2018-10-26] MEDS: SENNA TAB GTB SCH ×2 (08:25→21:26)
[2018-10-26] MEDS: LINAGLIPTIN 5 MG TABLET G-TUBE SCH (08:25)
[2018-10-26] MEDS: AMLODIPINE 5 MG TAB GTB SCH ×2 (08:26→21:24)
[2018-10-26] MEDS: METOPROLOL 50 MG TAB GTB SCH ×2 (08:26→21:25)
[2018-10-26] MEDS: QUETIAPINE 25 MG TAB GTB SCH ×2 (08:26→21:24)
--- NOTE | 2018-10-26 10:00 | NUR ---
Patient's restraint discontinued, currently resting comfortably, no signs of agitation or restlessness no attempts at pulling lines and tubes. Spoke with Dr Perez, also notified Alejandro (daughter) will continue 1:1 sitter at this time
--- NOTE | 2018-10-26 13:21 | NUR ---
Noted with cough, blood tinged sputum, afebrile, no signs of diaphoresis or distress. Spoke with Dr Perez, relayed assessments, orders placed
--- NOTE | 2018-10-26 16:36 | CONS ---
Date/Time of Note Date/Time of Note DATE: 10/26/18 TIME: 16:34 Assessment/Plan Assessment/Plan Chief Complaint/Hosp Course 83 y/o with This is an 83-year-old female with: 1. Hypotension, could be secondary to sepsis as the patient has positive bacteremia/urinary tract infection VRE bactermia. s/p permcath removal and new placement The patient was continued on blood pressure medicines aggressively 2. Altered level of consciousness, likely secondary to metabolic encephalopathy, secondary to low blood pressures. vs Vascular dementia 3. Mild hyponatremia. 4. End-stage renal disease on hemodialysis. 5. Diabetes. 6. Dysphagia, status post G-tube feeding. 7. History of vascular dementia. 8. Hypertension. 9. History of falls. 10. Anemia. 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 S/P REMOVAL TODAY now with nre permcatth Plan - next HD tmw thru left permcath - prbc -cw zyvox? Dapto> ? SNIF Will cover DAPTO? -Appreciate vascular/ID consultation -bp medications have been resumed -Renally dose all meds Consultation Date/Type/Reason Admit Date/Time Oct 16, 2018 at 18:45 Initial Consult Date 24 HR Interval Summary Free Text/Dictation pT WAS NOTED TO HAVE bleeding from permcath s/p HD yesterday Pt has dried blood Hb 7.1 Exam/Review of Systems Vital Signs Vitals Vital Signs Date Temp Pulse Resp B/P (MAP) Pulse Ox O2 O2 Flow FiO2 Time Delivery Rate 10/26/18 97.8 83 17 121/56 99 Room Air 14:00 (77) Intake and Output 10/25/18 10/25/18 10/26/18 1515:00 23:00 07:00 IntakeIntake Total 300 ml 180 ml OutputOutput Total 1500 ml BalanceBalance 300 ml -1320 ml Exam Respiratory: clear to auscultation Cardiovascular: regular rate and rhythm Gastrointestinal: soft, bowel sounds (+) Extremities: No edema left permcath with dried clotted blood JOSE RAUL ANDREWS MD Oct 26, 2018 16:35
--- NOTE | 2018-10-26 16:52 | PN ---
DATE: 10/26/2018 SUBJECTIVE: The patient was seen. Unfortunately yesterday evening, the patient had bleeding from he r new PermCath in the left IJ area. ____ placed to put pressure. Hemoglobin did drop to 7.5 and hem atocrit of 24. We will transfuse 1 unit of PRBC. Last dialysis was yesterday. PHYSICAL EXAMINATION: VITAL SIGNS: Temperature 97.8, pulse 83, respirations 17, blood pressure 121/56, saturation 99%. GENERAL: The patient is frail, pale, weak. CARDIOVASCULAR: S1, S2. Regular rate. LUNGS: Clear. ABDOMEN: Soft, nontender. EXTREMITIES: No clubbing, cyanosis or edema. SKIN: Left IJ PermCath, definitely blood all over. LABORATORY DATA: White count is 8.6, hemoglobin 7.5, hematocrit 24, platelet count 182, normal diffe rential. Chemistry: Sodium 131, potassium 4.2, chloride 95, bicarbonate 29, BUN is 31, creatinine _ ___, glucose of 166. MEDICATIONS: Were all reviewed and include: 1. Haldol. 2. Zyvox. 3. Hydralazine. 4. Lopressor. 5. Heparin. 6. Prevacid. 7. Norvasc. 8. Atarax. 9. Calamine. 10. Colace. 11. Folic acid. 12. Kianna-Roque. 13. Tradjenta. 14. Accu-Cheks hypoglycemia protocol. 15. Ativan. 16. Seroquel. 17. MiraLax. 18. Ferrous sulfate. 19. Senna. 20. Zofran. 21. Tylenol. ASSESSMENT AND PLAN: This is an 83-year-old [place]ian female with end-stage renal disease, chronic ob structive pulmonary disease, vascular dementia, cerebrovascular accident, who presented with hypotens ion and was found to have line sepsis. 1. Respiratory: Stable off of oxygen. 2. Cardiovascular: Continue above medications. The patient is on hydralazine, Lopressor, Norvasc. 3. Gastrointestinal: We will transfuse the patient 1 unit of PRBC due to above bleeding. Continue Protonix. 4. Dysphagia and malnutrition. Continue G-tube feeding and puree diet for oral gratification. 5. Psychiatric disorder. Continue Ativan and Haldol as needed. 6. Bacteremia, on Zyvox. We will need a total of 2 weeks of treatment. 7. Disposition: Tomorrow if H and H is stable after dialysis, see if PermCath line works appropriat dennise. Discharge planning for tomorrow. We will follow. Dictated By: DYLON HULL/MADAN Conf#: [id number] DID#: [id number] CC: MIKEL REDDY MD;*End*
--- NOTE | 2018-10-26 16:59 | NUR ---
Per Dr Natarajan, okay to transfuse patient today, HD order placed for tomorrow. Confirmation # [id number]
[2018-10-26] MEDS ORDERED: ALBUMIN HUMAN 25% 50 ML IV PRN (17:00)
[2018-10-26] MEDS ORDERED: SODIUM CHLORIDE 0.9% 1L BAG IV PRN (17:00)
--- NOTE | 2018-10-26 18:33 | CONS ---
Date/Time of Note Date/Time of Note DATE: 10/26/18 TIME: 18:31 Assessment/Plan Assessment/Plan Chief Complaint/Hosp Course 1130 No acute changes patient is sleeping, looks comfortable, no fevers Indwelling: left chest permacath Chest x-ray on admission revealed left lower lung field subsegmental atelectasis no focal consolidation pleural effusion or pneumothorax Physical examination: Chronically ill-appearing elderly woman who is awake, confused, in no distress. Head atraumatic normocephalic. Neck is supple. Chest rise symmetrical breath sounds diminished bases. Heart: S1-S2. Abdomen soft bowel sounds present extremities without edema Assessment: 1. Sepsis with VRE bacteremia 2 to infected Pcath 2. Positive urinalysis on admission, urine culture came back negative 3. End-stage renal disease, hemodialysis dependent 4. Dementia 5. Failure to thrive 6. Diabetes Plan: Patient remains stable, status post new permacath, continue abx==> last dose Nov 06, may change Zyvox to IV daptomycin if plts get too low DW staff Consultation Date/Type/Reason Admit Date/Time Oct 16, 2018 at 18:45 Initial Consult Date Type of Consult ID Exam/Review of Systems Vital Signs Vitals Vital Signs Date Temp Pulse Resp B/P (MAP) Pulse Ox O2 O2 Flow FiO2 Time Delivery Rate 10/26/18 97.8 83 17 121/56 99 Room Air 14:00 (77) Intake and Output 10/25/18 10/25/18 10/26/18 1515:00 23:00 07:00 IntakeIntake Total 300 ml 180 ml OutputOutput Total 1500 ml BalanceBalance 300 ml -1320 ml PHYLICIA HOLCOMB NP Oct 26, 2018 18:33
--- NOTE | 2018-10-26 19:28 | NUR ---
End of Shift Notes Patient in bed alert and oriented x 1 verbally responsive, no episodes of attempting to pull out tubes/lines, resting comfortably. No signs of distress, all needs attended to continue with 1:1 sitter. Tolerating gtube feeding well, will transfuse once blood product is ready, no more episodes of bleeding at permacat site
[2018-10-26] MEDS: LORAZEPAM 1 MG TAB GTB PRN (21:24)
--- NOTE | 2018-10-26 23:07 | NUR ---
Patient is still bleeding on her new permacath on her left upper chest. Called salesperson books surgeon and spoke with Mhiai Dunlap and per Dr. Holm just keep putting pressure and apply sandbag and will see her tomorrow for stitches on the surgical site. Will continue to monitor patient.
--- NOTE | 2018-10-26 23:53 | NUR ---
Started 1 unit of PRBC. Will continue to monitor patient.
[2018-10-27] VITALS (23 sets, daily range): BP systolic 101–178; BP diastolic 52–102; PULSE 84–98; RESP 18
[2018-10-27] MEDS: hydrOXYzine HCL 25 MG TAB GTB PRN (00:14)
[2018-10-27] MEDS: ACCU-CHEK XX SCH ×5 (01:25→20:56)
--- NOTE | 2018-10-27 03:00 | NUR ---
1 unit of PRBC transfused. No complaints at this time. Will continue to monitor patient.
--- NOTE | 2018-10-27 05:37 | NUR ---
EOSS: Transfused 1 unit of PRBC. Ativan and Haldol administered last night due to patient being agitated. Left upper chest permacath still oozing blood. Surgicell applied and 4x4 gauze applied with surgical tape on top and sandbag applied. Informed Dr. Holm and per just keep putting pressure and they will do some stitches in the AM. 1:1 sitter still with patient. Will endorse to morning nurse for continuity of care.
[2018-10-27] MEDS: LANSOPRAZOLE 30 MG CAP GTB SCH (05:53)
[2018-10-27] MEDS: FERROUS SULFATE 60 MG/ML 5ML CUP GTB SCH ×2 (08:57→20:54)
[2018-10-27] MEDS: DOCUSATE SODIUM 10 MG/ML (10ML CUP) GTB SCH (08:57)
[2018-10-27] MEDS: ZYVOX 600 MG TAB GTB SCH (08:58)
[2018-10-27] MEDS: QUETIAPINE 25 MG TAB GTB SCH ×2 (08:58→20:55)
[2018-10-27] MEDS: MULTIVIT/CA CARB/B CMPLX/FA TAB GTB SCH (08:58)
[2018-10-27] MEDS: FOLIC ACID 1 MG TAB GTB SCH (08:58)
[2018-10-27] MEDS: METOPROLOL 50 MG TAB GTB SCH ×2 (08:58→20:56)
[2018-10-27] MEDS: SENNA TAB GTB SCH ×2 (08:59→20:55)
[2018-10-27] MEDS: AMLODIPINE 5 MG TAB GTB SCH ×2 (08:59→20:55)
[2018-10-27] MEDS: LINAGLIPTIN 5 MG TABLET G-TUBE SCH (08:59)
--- NOTE | 2018-10-27 12:44 | CONS ---
Date/Time of Note Date/Time of Note DATE: 10/27/18 TIME: 12:42 Assessment/Plan Assessment/Plan Chief Complaint/Hosp Course 83 y/o with This is an 83-year-old female with: 1. Hypotension, could be secondary to sepsis as the patient has positive bacteremia/urinary tract infection VRE bactermia. s/p permcath removal and new placement The patient was continued on blood pressure medicines aggressively 2. Altered level of consciousness, likely secondary to metabolic encephalopathy, secondary to low blood pressures. vs Vascular dementia 3. Mild hyponatremia. 4. End-stage renal disease on hemodialysis. 5. Diabetes. 6. Dysphagia, status post G-tube feeding. 7. History of vascular dementia. 8. Hypertension. 9. History of falls. 10. Anemia. 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 S/P REMOVAL now with new permcatth Plan - HD today - Monitor H/H -cw zyvox? OK to dc from renal prespective if SNIF covers dapto or zyvox> per ID -Appreciate vascular/ID consultation -bp medications have been resumed -Renally dose all meds Consultation Date/Type/Reason Admit Date/Time Oct 16, 2018 at 18:45 Initial Consult Date 24 HR Interval Summary Free Text/Dictation It was bleeding from the permacath site last night according to the nurses however today he does not is not bleeding HD today Exam/Review of Systems Vital Signs Vitals Vital Signs Date Temp Pulse Resp B/P (MAP) Pulse Ox O2 O2 Flow FiO2 Time Delivery Rate 10/27/18 98.6 94 18 178/71 100 Room Air 09:00 (106) Exam Exam Respiratory: clear to auscultation Cardiovascular: regular rate and rhythm Gastrointestinal: soft, bowel sounds (+) Extremities: No edema left permcath with dried clotted blood JOSE RAUL ANDREWS MD Oct 27, 2018 12:44
--- NOTE | 2018-10-27 13:40 | CONS ---
Date/Time of Note Date/Time of Note DATE: 10/27/18 TIME: 13:38 Assessment/Plan Assessment/Plan Chief Complaint/Hosp Course No acute changes, patient is sleeping, no fevers Indwelling: left chest permacath Chest x-ray on admission revealed left lower lung field subsegmental atelectasis no focal consolidation pleural effusion or pneumothorax Physical examination: Chronically ill-appearing elderly woman who is awake, confused, in no distress. Head atraumatic normocephalic. Neck is supple. Chest rise symmetrical breath sounds diminished bases. Heart: S1-S2. Abdomen soft bowel sounds present extremities without edema Assessment: 1. Sepsis with VRE bacteremia 2 to infected Pcath 2. Positive urinalysis on admission, urine culture came back negative 3. End-stage renal disease, hemodialysis dependent 4. Dementia 5. Failure to thrive 6. Diabetes Plan: Patient remains unchanged, continue abx==> last dose Nov 06, will c hange Zyvox to IV daptomycin since her plts trending down DW staff Consultation Date/Type/Reason Admit Date/Time Oct 16, 2018 at 18:45 Initial Consult Date Type of Consult ID Exam/Review of Systems Vital Signs Vitals Vital Signs Date Temp Pulse Resp B/P (MAP) Pulse Ox O2 O2 Flow FiO2 Time Delivery Rate 10/27/18 126/60 10:20 (82) 10/27/18 98.6 94 18 100 Room Air 09:00 PHYLICIA HOLCOMB NP Oct 27, 2018 13:40
[2018-10-27] MEDS ORDERED: DAPTOMYCIN IVPB SCH ×5 (14:30→16:00)
[2018-10-27] MEDS ORDERED: SOD CHLORIDE 0.9% IVPB SCH ×5 (14:30→16:00)
[2018-10-27] MEDS: LORAZEPAM 1 MG TAB GTB PRN (16:56)
--- NOTE | 2018-10-27 17:07 | NUR ---
Pt is getting agitated and restless. Unable to follow instructions. Pt doesn't listen to staff. Pt is confused.Dialysis ongoing right now and interfering with the dialysis, pt is reaching for the dialysis catheter. Dialysis catheter started to ooze blood and pt cannot keep still during the treatment. Bilateral wrist restraint placed to prevent pulling the dialysis catheter. Dr. Perez informed of placing the bilateral wrist restraint. Order in place.
--- NOTE | 2018-10-27 19:51 | NUR ---
Left chest perma cath bleeding after the dialysis. Dressing changed surgicel applied with pressure dressing. Sand bag in place. Endorsed to FADY Cosme for continuity of care.
--- NOTE | 2018-10-27 21:05 | PN ---
DATE: 10/27/2018 SUBJECTIVE: The patient is seen. Currently being dialyzed. The left IJ PermCath is still draining some blood in it. The area is soaked. PHYSICAL EXAMINATION: VITAL SIGNS: Temperature 98.3, pulse 84, respiration 18, blood pressure 125/59, saturation 98%. GENERAL: No acute distress. The patient is frail, pale. CARDIOVASCULAR: S1, S2, regular rate. LUNGS: Clear. ABDOMEN: Soft, nontender. EXTREMITIES: No clubbing, cyanosis, or edema. LABORATORY DATA: White count 9.1, hemoglobin 8.7, hematocrit 27, platelet count 143. Sodium 135, po tassium 4.5, chloride 97, bicarbonate 26, BUN 65, creatinine 2.27, glucose 145. MEDICATIONS: All reviewed. ASSESSMENT AND PLAN: This is an 83-year-old Polish female with end-stage renal disease, chronic ob structive pulmonary disease, vascular dementia, and CVA who presented with hypotension and was found to have line sepsis. 1. Respiratory. Off oxygen. 2. Cardiovascular. Continue above meds. The patient is on hydralazine, Lopressor, and Norvasc. 3. Gastrointestinal. Status post transfusion. Monitor hemoglobin and hematocrit as there is some a ctive blood noted at the PermCath site. Again, we will follow hemoglobin and hematocrit. 4. Dysphagia and malnutrition. Continue G-tube feeding and oral feeding for gratification. 5. Psychiatric disorder. Continue psych meds. 6. Bacteremia, on Zyvox. Complete 2 weeks' course of treatment. DISPOSITION: If H and H is stable, any facility will take the patient back. We will follow. Galileo stiles to assist with placement. Dictated By: DYLON HULL/MADAN Conf#: [id number] DID#: [id number]
[2018-10-28] VITALS (10 sets, daily range): BP systolic 122–175; BP diastolic 47–98; PULSE 79–96; RESP 16–18
[2018-10-28] MEDS: ACCU-CHEK XX SCH ×5 (02:25→20:18)
--- NOTE | 2018-10-28 06:02 | NUR ---
BRITTA NOTE: DISCHARGE PLANNING Updated clinicals and new order for Daptomycin faxed to [facility] (P:[phone], F:[phone]). Confirmation received. Ranulfo Obregon RN CM [id number] Addendum: 10/28/18 at 1150 by FELICIANO OBREGON CM Per Maria Luisa at [facility], pt ok to return once IV Daptomycin is completed.
[2018-10-28] MEDS: LANSOPRAZOLE 30 MG CAP GTB SCH (06:26)
--- NOTE | 2018-10-28 06:35 | NUR ---
restless and agitated during the shift, trying to pull new permacath on left chest that is bleeding. Maintained the sandbag on and watched for progression. Closely watched by product safety officer at the bedside.
--- NOTE | 2018-10-28 08:58 | NUR ---
NURSES NOTES :LATE ENTRY FOR 0730 RECEIVED PT DURING ROUNDS . PT AWAKE, VERBALLY RESPONSIVE, CONFUSED AND DISORIENTED. SOFT UPPER LIMB RESTRAINTS NOTED , RESTRAINT PROTOCOL FOLLOWED.PT NOTED SCRATCHING SKIN , FOLLOWS COMMAND WHEN INSTRUCTED NOT TO PULL OUT TUBING. SITTER AT BEDSIDE.REALITY ORIENTATION PROVIDED. WILL REASSESS NEED FOR RESTRAINT.
--- NOTE | 2018-10-28 09:03 | NUR ---
NURSES NOTES: PT MORE ALERT , VERBALLY RESPONSIVE , MORE COOPERATIVE FOLLOWS COMMAND ALTHOUGH STILL CONFUSED. RESTRAINT WAS DCD AT 0800.. SITTER AT BEDSIDE. SAFETY PRECAUTIONS OBSERVED AND MAINTAINED.
[2018-10-28] MEDS: DOCUSATE SODIUM 10 MG/ML (10ML CUP) GTB SCH (10:00)
[2018-10-28] MEDS: FERROUS SULFATE 60 MG/ML 5ML CUP GTB SCH ×2 (10:00→20:12)
[2018-10-28] MEDS: FOLIC ACID 1 MG TAB GTB SCH (10:01)
[2018-10-28] MEDS: QUETIAPINE 25 MG TAB GTB SCH ×2 (10:01→20:11)
[2018-10-28] MEDS: SENNA TAB GTB SCH ×2 (10:01→20:12)
[2018-10-28] MEDS: MULTIVIT/CA CARB/B CMPLX/FA TAB GTB SCH (10:01)
[2018-10-28] MEDS: METOPROLOL 50 MG TAB GTB SCH ×2 (10:02→20:12)
[2018-10-28] MEDS: LINAGLIPTIN 5 MG TABLET G-TUBE SCH (10:02)
[2018-10-28] MEDS: AMLODIPINE 5 MG TAB GTB SCH ×2 (10:03→20:11)
[2018-10-28] MEDS: hydrOXYzine HCL 25 MG TAB GTB PRN (10:03)
--- NOTE | 2018-10-28 12:06 | NUR ---
PATIENT SLEEPING AT THIS TIME, HAD TO RE-ORIENT Pt THAT SHE WAS IN THE HOSPITAL AND WE ARE TAKING CARE OF HER. Pt FOLLOWED COMMANDS AND SHE IS CALM AT THIS TIME.
--- NOTE | 2018-10-28 16:30 | PN ---
DATE: 10/28/2018 SUBJECTIVE: Unfortunately, yesterday, the patient also had again bleeding through the left Perm-A-Ca th. Hemoglobin dropped again from 8.7 to 7.7. We will transfuse 1 unit of PRBC and continue to [facility] for bleeding. The patient also remains on daptomycin for VRE bacteremia. PHYSICAL EXAMINATION: VITAL SIGNS: Temperature 97.8, pulse 92, respirations 16, blood pressure 148/98, saturation 95% on r oom air. GENERAL: No acute distress. The patient is frail, pale. CARDIOVASCULAR: S1 and S2, regular rate. LUNGS: Clear. ABDOMEN: Soft, nontender. EXTREMITIES: No clubbing, cyanosis, or edema. LABORATORY DATA: White count is 6.8, hemoglobin 7.7, hematocrit 24, platelets count is 135, neutroph ils 73%, lymphocytes 13%. Chemistry: Sodium 140, potassium 4.2, chloride 102, bicarbonate 31, BUN i s 32, creatinine 0.6, glucose 126. MEDICATIONS: All reviewed. They include: 1. Daptomycin. 2. Albumin. 3. Sodium chloride p.r.n. 4. Haldol. 5. Hydralazine. 6. Lopressor. 7. Heparin. 8. Prevacid. 9. Norvasc. 10. Atarax. 11. Calamine. 12. Colace. 13. Folic acid. 14. Kianna-Roque. 15. Tradjenta. 16. Accu-Cheks. 17. Ferrous sulfate. 18. MiraLax. 19. Seroquel. 20. Ativan. 21. Senna. 22. Sulfa. 23. Tylenol. ASSESSMENT AND PLAN: This is an 83-year-old [place]ian female with end-stage renal disease, chronic ob structive pulmonary disease, vascular dementia, cerebrovascular accident who presented with hypotensi on, was found to have line sepsis. 1. Respiratory. Off oxygen. No evidence of fluid overload state. 2. Cardiovascular. Continue above meds. Blood pressure is under control. 3. Gastrointestinal. Continue Protonix for gastrointestinal prophylaxis. 4. Anemia, partly blood loss from the Perm-A-Cath. We will transfuse 1 unit of PRBC. Monitor H and H and monitor for bleeding. 5. Dysphagia and malnutrition. Continue bolus feedings and oral feeding. 6. Psychiatric disorder. Resume all psych meds. 7. Bacteremia. Continue daptomycin. Will need total of 2 weeks of antibiotic care. We will follow. Continue physical therapy as tolerated. Dictated By: DYLON HULL/MADAN Conf#: [id number] DID#: [id number]
--- NOTE | 2018-10-28 17:18 | NUR ---
NURSES NOTES: DR. ANDREWS SEEN PT AT BEDSIDE , INFORMED THAT PT IS SCHEDULED TO RECEIVE 1 UNIT OF PRBC TODAY. PER DR. ANDREWS BLOOD TRANSFUSION CAN BE GIVEN TOMORROW DURING HEMODIALYSIS.
--- NOTE | 2018-10-28 17:20 | CONS ---
Date/Time of Note Date/Time of Note DATE: 10/28/18 TIME: 17:18 Assessment/Plan Assessment/Plan Chief Complaint/Hosp Course 83 y/o with This is an 83-year-old female with: 1. Hypotension, could be secondary to sepsis as the patient has positive bacteremia/urinary tract infection VRE bactermia. s/p permcath removal and new placement The patient was continued on blood pressure medicines aggressively 2. Altered level of consciousness, likely secondary to metabolic encephalopathy, secondary to low blood pressures. vs Vascular dementia 3. Mild hyponatremia. 4. End-stage renal disease on hemodialysis. 5. Diabetes. 6. Dysphagia, status post G-tube feeding. 7. History of vascular dementia. 8. Hypertension. 9. History of falls. 10. Anemia. 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 S/P REMOVAL now with new permcatth Plan - HD tmw, will give Prbc along with HD tmw - Monitor H/H -on iv dapto -Appreciate vascular/ID consultation -bp medications have been resumed -Renally dose all meds Consultation Date/Type/Reason Admit Date/Time Oct 16, 2018 at 18:45 Initial Consult Date 24 HR Interval Summary Free Text/Dictation Pt had bleeding from permacth site which has stopped hb 7.7 today Exam/Review of Systems Vital Signs Vitals Vital Signs Date Temp Pulse Resp B/P (MAP) Pulse Ox O2 O2 Flow FiO2 Time Delivery Rate 10/28/18 98.0 79 16 122/53 99 Room Air 14:20 (76) Intake and Output 10/27/18 10/27/18 10/28/18 1515:00 23:00 07:00 IntakeIntake Total 410 ml 270 ml OutputOutput Total 1400 ml BalanceBalance 410 ml -1130 ml Exam Respiratory: clear to auscultation Cardiovascular: regular rate and rhythm Gastrointestinal: soft, bowel sounds (+) Extremities: No edema left permcath with dried clotted blood JOSE RAUL ANDREWS MD Oct 28, 2018 17:20
--- NOTE | 2018-10-28 18:07 | NUR ---
NURSES NOTES: CALLED MEECarmen SPOKE TO GINA RE: HEMODIALSYIS SCHEDULE 10/29/18. CONFIRMATION # [id number].
--- NOTE | 2018-10-28 18:22 | NUR ---
SHIFT SUMMARY: NO SIGNIFICANT CHANGE OF CONDITON. NO SOB NOTED.LEFT CHEST PERMACATH INTACT AND DRY. NO ACTIVE BLEEDING NOTED.PT STILL CONFUSED BUT FOLLOW COMMANDS. DENIES PAIN AT THSIS TIME. SITTER AT BEDSIDE. ALL NEEDS ATTENDED AND RENDERED. CALL LIGHT WITHIN REACH. Addendum: 10/28/18 at 1856 by ANDREA DAVIS RN ADDENDUM TO ABOVE NOTES: NEPHRO 1 CAN BOLUS GIVEN AT 8AM AND 2PM TODAY. GT INTACT , PATENT, PLACEMENT AND RESIDUAL CHECKED. ASPIRATION PRECAUTIONS OBSERVED.
--- NOTE | 2018-10-28 19:26 | CONS ---
Date/Time of Note Date/Time of Note DATE: 10/28/18 TIME: 19:19 Assessment/Plan Assessment/Plan Chief Complaint/Hosp Course 1235 No acute changes, looks comfortable, afebrile Indwelling: left chest permacath Chest x-ray on admission revealed left lower lung field subsegmental atelectasis no focal consolidation pleural effusion or pneumothorax Physical examination: Chronically ill-appearing elderly woman who is awake, confused, in no distress. Head atraumatic normocephalic. Neck is supple. Chest rise symmetrical breath sounds diminished bases. Heart: S1-S2. Abdomen soft bowel sounds present extremities without edema Assessment: 1. Sepsis with VRE bacteremia 2 to infected Pcath 2. Positive urinalysis on admission, urine culture came back negative 3. End-stage renal disease, hemodialysis dependent 4. Dementia 5. Failure to thrive 6. Diabetes Plan: Patient remains unchanged, continue Daptomycin ==> last dose Nov 06 staff Consultation Date/Type/Reason Admit Date/Time Oct 16, 2018 at 18:45 Initial Consult Date Type of Consult ID Exam/Review of Systems Vital Signs Vitals Vital Signs Date Temp Pulse Resp B/P (MAP) Pulse Ox O2 O2 Flow FiO2 Time Delivery Rate 10/28/18 98.0 79 16 122/53 99 Room Air 14:20 (76) Intake and Output 10/27/18 10/27/18 10/28/18 1515:00 23:00 07:00 IntakeIntake Total 410 ml 270 ml OutputOutput Total 1400 ml BalanceBalance 410 ml -1130 ml PHYLICIA HOLCOMB NP Oct 28, 2018 19:26
[2018-10-29] VITALS (16 sets, daily range): BP systolic 87–140; BP diastolic 42–74; PULSE 82–115; RESP 14–20
[2018-10-29] MEDS: LORAZEPAM 1 MG TAB GTB PRN ×2 (00:20→16:20)
[2018-10-29] MEDS: ACCU-CHEK XX SCH ×5 (01:52→21:32)
[2018-10-29] MEDS: hydrOXYzine HCL 25 MG TAB GTB PRN ×2 (02:09→21:32)
--- NOTE | 2018-10-29 02:15 | NUR ---
PT has been attempting to climb out of bed throughout shift. Ativan given. Reassessed pt. Ativan not effective. 1:1 sitter is holding pt hands to prevent pt from pulling out lines and climb out of bed. Pt has also been scratching skin. Atarax given for itchiness. Will continue to monitor. Addendum: 10/29/18 at 0548 by SOFÍA HANKINS RN Pt self inflicted abrasion on right forearm with nails. Site is bleeding and muscle/tendon is exposed. plastic technician aware. Pictures taken. Will notify . Ordered wound care consult. Will endorse to next shift to have family members clip pt nails. Addendum: 10/29/18 at 0602 by SOFÍA HANKINS RN Incident occurred when pt was being turned on her side and her sharp, pointy nails rubbed against her thin skin. Addendum: 10/29/18 at 0610 by SCOTTY SLOAN RN During AM Care - patient vigorously scratched her right forearm with her pointed and sharp finger nails - sustained a laceration 7 x 1.5 cms ,+ bleeding - Steri- strips applied , bleeding controlled - covered with gauze and kerligs. made aware , wound consult ordered. Addendum: 10/29/18 at 0737 by SOFÍA HANKINS RN Correction: Wound was not an abrasion. Wound is a full thickness wound secondary to pt scratching herself.
[2018-10-29] MEDS: HALOPERIDOL 5 MG INJ IM PRN ×3 (02:37→20:08)
--- NOTE | 2018-10-29 02:39 | NUR ---
Haldol given, med not scanning.
--- NOTE | 2018-10-29 06:17 | NUR ---
Family notification: Patient's next of kin contacted to relay the incidence and plan of care -[phone] ( not accepting any calls ) . [phone] message left to call back the unit.
--- NOTE | 2018-10-29 06:34 | NUR ---
1:[address] S[address] ORDER [address] sonia Perez to confirm whether he wanted soft mitten restraints or to keep 1:1 sitter. He said he wanted both and I explained manager pest, Roberto Wade, said it can only be either restraint or sitter. Dr. Perez stated, "Okay sitter #1 and no restraints." Will continue with order. That is the order we have now.
--- NOTE | 2018-10-29 06:39 | NUR ---
EOSS All due meds and nephro novasource given via G tube. Pt denies pain. Accuchecks done. No coverage required. Pt turned Q2 hours. Pt continues to try and climb out of bed and pulling out lines. Pt self inflicted abrasion on right forearm. Notified Dr. Perez. Received order for wound care consult and to continue with 1:1 sitter. Pictures taken. Family notified by meteorologist in charge. Steristrips applied and covered with gauze and wrapped with kerlix roll. Pt scheduled to have HD and 1 unit PRBC transfusion during dialysis treatment. Hourly rounding done. Bed left in lowest position with bed alarm on. Will endorse to next shift.
[2018-10-29] MEDS: LANSOPRAZOLE 30 MG CAP GTB SCH (06:48)
[2018-10-29] MEDS: QUETIAPINE 25 MG TAB GTB SCH ×2 (07:57→21:32)
[2018-10-29] MEDS: FERROUS SULFATE 60 MG/ML 5ML CUP GTB SCH ×2 (07:57→21:31)
[2018-10-29] MEDS: MULTIVIT/CA CARB/B CMPLX/FA TAB GTB SCH (07:57)
[2018-10-29] MEDS: SENNA TAB GTB SCH ×2 (07:57→21:31)
[2018-10-29] MEDS: LINAGLIPTIN 5 MG TABLET G-TUBE SCH (07:57)
[2018-10-29] MEDS: METOPROLOL 50 MG TAB GTB SCH ×2 (07:58→21:32)
[2018-10-29] MEDS: AMLODIPINE 5 MG TAB GTB SCH ×2 (07:59→21:31)
[2018-10-29] MEDS: DOCUSATE SODIUM 10 MG/ML (10ML CUP) GTB SCH (08:05)
[2018-10-29] MEDS: FOLIC ACID 1 MG TAB GTB SCH (08:05)
--- NOTE | 2018-10-29 11:37 | CONS ---
[facility] HCIS Consult Follow-up Patient Name: Zahira White Unit Number: [id number] Date of : 1935 Patient Status: Admitted Inpatient Attending Doctor: Kemar Perez MD Edit: JOSE RALU ANDREWS MD on 10/29/18 @ 15:44 Pt seen and examined Spoke to daugther at bedside Hd today along with blood Date/Time of Note Date/Time of Note DATE: 10/29/18 TIME: 11:33 Assessment/Plan Assessment/Plan Chief Complaint/Hosp Course 1. End-stage renal disease on hemodialysis. 2. Altered level of consciousness, likely secondary to metabolic encephalopathy, secondary to low blood pressures. vs Vascular dementia 3. Mild hyponatremia resolved. 4. Hypotension, resolved. 5. Diabetes. 6. Dysphagia, status post G-tube placement 7. History of vascular dementia. 8. Hypertension. 9. History of falls. 10. Anemia. 11. VRE bacteremia FROM PERMACATH S/P REMOVAL, now with new Permcatth Additional Assessment/Plan - HD today with 1 unit PRBC - Monitor H/H -on iv daptomycin -Appreciate vascular/ID consultation -c/w BP medications -Renally dose all meds Consultation Date/Type/Reason Admit Date/Time Oct 16, 2018 at 18:45 Initial Consult Date 10/16/2018 Type of Consult nephrology 24 HR Interval Summary Constitutional: disoriented Exam/Review of Systems Vital Signs Vitals Vital Signs Date Temp Pulse Resp B/P (MAP) Pulse Ox O2 O2 Flow FiO2 Time Delivery Rate 10/29/18 98.3 94 14 138/64 98 Room Air 07:32 (88) Intake and Output 10/28/18 10/28/18 10/29/18 1414:59 22:59 06:59 IntakeIntake Total 100 ml 110 ml BalanceBalance 100 ml 110 ml Exam left chest Permcath Eyes: nl conjunctiva Respiratory: normal air movement Cardiovascular: regular rate and rhythm Gastrointestinal: soft, other (G tube) Genitourinary - Female: CVA tenderness; No nl adnexae, No nl external genitalia, No CMT, No uterus, No other Musculoskeletal: joint tenderness, swelling (left hand) 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: confused FLAVIO CLAYTON Oct 29, 2018 11:37
--- NOTE | 2018-10-29 11:39 | NUR ---
WOUND CONSULT FOR RIGHT FOREARM WOUND CONSULT: 83 year old female with history of End-stage renal disease on dialysis, diabetes mellitus, anemia, osteoarthritis, COPD, diastolic dysfunction heart failure, dysphagia and moderate caloric-protein malnutrition per medical history. Patient awake, alert, confuse with 1:1 sitter in room. Patient appears restless during skin/wound assessment. She is trying to get up and constantly moving her legs. Patient on dialysis. Unable to assess Sacrococcyx area at this time. On low air loss surface. ASSESSMENT: - Right forearm skin tear with steri-strips. Ecchymosis. Thin, fragile skin. No drainage. No odor. Recommendation: Deep Steri-strips on until it fall-off by itself. Cover with Xeroform and gauze. Then, wrap with roll-gauze. - Bilateral heels and bilateral ankles: Cover with foam border dressing and apply socks to prevent friction. - Continue low air loss surface. - Reposition every 2 hours. Discussed assessment and plan of care with Ignacia SHRESTHA. RN to obtain wound care recommendations from . YARITZA Garcia RN Addendum: 10/29/18 at 1146 by KACEY DUENAS RN Sacrococcyx: Cover with foam border dressing for prophylactic protection. Assess skin under dressing every shift. Change every 3 days and as needed.
--- NOTE | 2018-10-29 16:24 | CONS ---
Date/Time of Note Date/Time of Note DATE: 10/29/18 TIME: 16:22 Assessment/Plan Assessment/Plan Chief Complaint/Hosp Course 1200 Patient had been agitated she has restraints and sitter at bedside currently sleeping in no distress WBC 8.5 H&H 6.9 and 21.9 platelets 117 Indwelling: Left chest permacath Antimicrobials: Daptomycin Physical examination: Chronically ill-appearing elderly woman who is awake, confused, in no distress. Head atraumatic normocephalic. Neck is supple. Chest rise symmetrical breath sounds diminished bases. Heart: S1-S2. Abdomen soft bowel sounds present extremities without edema Assessment: 1. Sepsis with VRE bacteremia 2 to infected Pcath 2. Positive urinalysis on admission, urine culture came back negative 3. End-stage renal disease, hemodialysis dependent 4. Dementia 5. Failure to thrive 6. Diabetes Plan: Patient remains unchanged, repeat blood cultures have been negative, continue Daptomycin ==> last dose Nov 06 staff Consultation Date/Type/Reason Admit Date/Time Oct 16, 2018 at 18:45 Initial Consult Date Type of Consult ID Exam/Review of Systems Vital Signs Vitals Vital Signs Date Temp Pulse Resp B/P (MAP) Pulse Ox O2 O2 Flow FiO2 Time Delivery Rate 10/29/18 20 115/42 Room Air 13:38 (66) 10/29/18 114 13:38 10/29/18 97.8 97 13:38 Intake and Output 10/28/18 10/28/18 10/29/18 1515:00 23:00 07:00 IntakeIntake Total 100 ml 110 ml BalanceBalance 100 ml 110 ml PHYLICIA HOLCOMB NP Oct 29, 2018 16:24
--- NOTE | 2018-10-29 16:46 | PN ---
DATE: 10/29/2018 SUBJECTIVE: The patient is seen. Unfortunately overnight, the patient scratched herself. Hospital policy is not to place mittens if the patient is already on 1:1 sitter. Anyhow, the patient remains with a sitter, who is monitoring the patient closely. The patient did not sleep well at night, so no w the patient is sleeping comfortably. Hemoglobin continues to drop down to 6.9. We will transfuse the patient more blood during dialysis today. Dr. Sagastume is following. PHYSICAL EXAMINATION: VITAL SIGNS: Temperature 98.3, pulse 94, respirations 14, blood pressure 138/64, saturation 98% on r oom air. GENERAL: The patient is in no acute distress, frail, pale, resting, sleeping. CARDIOVASCULAR: S1, S2. LUNGS: Decreased bilaterally, but overall breathing comfortably. ABDOMEN: Soft. G-tube in place. EXTREMITIES: No clubbing, cyanosis or edema. There is definite skin ecchymosis of the wrists, hands and the shoulder area. LABORATORY DATA: White count is 8.5, hemoglobin 6.9, hematocrit 21.9, platelet counts 117, neutrophi ls 62% lymphocytes 23%. Chemistry: Sodium 140, potassium 4.2, chloride 101, bicarbonate 29, B UN is 51, creatinine 2.28 and glucose 133. MEDICATIONS: Include: 1. Daptomycin IV dose per pharmacy q.48 hours. 2. Albumin as directed. 3. Haldol 2 mg IM q.4 p.r.n. 4. Hydralazine 25 t.i.d. 5. Lopressor 50 mg b.i.d. 6. Heparin as directed after dialysis. 7. Prevacid 20 mg daily. 8. Norvasc 5 mg b.i.d. 9. Atarax p.r.n. 10. Calamine as directed. 11. Colace 100 daily. 12. Folic acid 1 mg daily. 13. Kianna-Roque 1 tab daily. 14. Tradjenta 5 mg daily. 15. Accu-Chek as directed hypoglycemia protocol. 16. Ferrous sulfate 325 b.i.d. 17. MiraLax as directed. 18. Seroquel 25 b.i.d. 19. Ativan p.r.n. 20. Senna b.i.d. 21. Zofran p.r.n. 22. Tylenol p.r.n. ASSESSMENT AND PLAN: This is an unfortunate 83-year-old [place] female with end-stage renal disease , chronic obstructive pulmonary disease, vascular dementia, cerebrovascular accident, who presented w ith hypotension, was found to have line sepsis and vancomycin-resistant Enterococcus. 1. Respiratory: Off oxygen, breathing comfortably. No evidence of fluid overload state. 2. Cardiovascular: Blood pressure has been stable. 3. Infectious disease. The patient with vancomycin-resistant Enterococcus bacteremia. Continue dap tomycin. Infectious disease is following. The patient is afebrile with normal white count. 4. Ongoing anemia and bleeding through the PermCath versus other. Continue transfusion with dialysi s today. Vascular surgeon hopefully to follow. 5. Gastrointestinal. Continue Protonix for gastrointestinal prophylaxis. 6. Dysphagia. The patient has G-tube feeding and also oral feeding for oral gratification as tolera gilbert. 7. Psychiatric disorder. Resume psych meds including Seroquel. 8. Continue 1:1 sitter due to danger to self. 9. Wound care consultation requested for her wounds. Once bleeding issue is addressed and hemoglobi n and hematocrit is stable, discharge planning to proceed. Again, case was discussed as well with child support case officer. We will follow. Dictated By: DYLON HULL/MADAN Conf#: [id number] DID#: [id number] CC: MIKEL SAGASTUME MD;*EndCC*
[2018-10-29] MEDS: DAPTOMYCIN 230 MG in SOD CHLORIDE 0.9% 100 ML IVPB SCH (17:25)
--- NOTE | 2018-10-29 18:41 | NUR ---
END OF SHIFT SUMMARY Pt alert oriented x1. All due meds given as ordered via apple sauce and one at a time. Gt bolus feeding done TID. Pt did not tolerate well, couple hours later pt spit up roughly 15cc of feeding. Pt sat up in bed all the way; 90 degrees. Pt continues with permacath to Left upper chest and IV site at right hand. HD this morning and 1unit of PRBCs done. 1 more unit ordered; type and cross to be done soon, 1unit awaiting in blood bank. Wound care consult ordered; nurse came to assess the wound; no stitches needed. Xeroform dressing ordered as well as allevyn and socks to bilateral heels to prevent friction. Pt remains with 1:1 sitter and MD ordered soft wrist restraints during HD as well as Haldol 2mg x1 now and again in 1/2hr if needed; pt only required one dose. Pt tolerated well able to allow HD. pt permacath bleed today as well; MD admissions clerk notified with new order to enter a nurse to MD communication to change dressing if bleeding continues and apply 5lb bag x1hr. Order transcribed and followed through. Pt's permacath continues to bleed, 5lb bag reapplied. No injuries, no adverse events occurred during my shift. Will continue to monitor pt and endorse new plan of care to oncoming shift RN.
--- NOTE | 2018-10-29 21:00 | NUR ---
2nd unit of blood started. Will continue to monitor patient.
[2018-10-30] MEDS: ACCU-CHEK XX SCH ×5 (01:39→20:22)
[2018-10-30 01:57] VITALS: BP 149/65; PULSE 82; RESP 16
--- NOTE | 2018-10-30 02:00 | NUR ---
2nd unit of blood transfused. No allergic reactions noted. Will continue to monitor patient.
[2018-10-30] MEDS: hydrOXYzine HCL 25 MG TAB GTB PRN (03:43)
[2018-10-30] MEDS: LORAZEPAM 1 MG TAB GTB PRN (03:44)
[2018-10-30] MEDS: HALOPERIDOL 5 MG INJ IM PRN (04:45)
--- NOTE | 2018-10-30 05:08 | NUR ---
EOSS: 1:1 sitter maintained this shift. Patient is agitated and trying to pull out lines when awake. Slept couple of hours this shift. No bleeding noted on the left permacath. Dressing changed. Bed in low position and locked. Siderails x2 up. Will endorse to morning nurse for continuity of care.
[2018-10-30] MEDS: LANSOPRAZOLE 30 MG CAP GTB SCH (06:23)
[2018-10-30 07:31] VITALS: BP 108/55; PULSE 70; RESP 16
[2018-10-30] MEDS: LINAGLIPTIN 5 MG TABLET G-TUBE SCH (08:58)
[2018-10-30] MEDS: MULTIVIT/CA CARB/B CMPLX/FA TAB GTB SCH (08:58)
[2018-10-30] MEDS: FERROUS SULFATE 60 MG/ML 5ML CUP GTB SCH ×2 (08:58→20:21)
[2018-10-30] MEDS: DOCUSATE SODIUM 10 MG/ML (10ML CUP) GTB SCH (08:58)
[2018-10-30] MEDS: FOLIC ACID 1 MG TAB GTB SCH (08:58)
[2018-10-30] MEDS: SENNA TAB GTB SCH ×2 (08:59→20:21)
[2018-10-30] MEDS: QUETIAPINE 25 MG TAB GTB SCH ×2 (08:59→20:21)
[2018-10-30] MEDS: METOPROLOL 50 MG TAB GTB SCH ×2 (08:59→20:21)
[2018-10-30] MEDS: AMLODIPINE 5 MG TAB GTB SCH ×2 (09:00→20:22)
[2018-10-30 13:36] VITALS: BP 100/98; PULSE 74; RESP 16
--- NOTE | 2018-10-30 14:02 | CONS ---
Date/Time of Note Date/Time of Note DATE: 10/30/18 TIME: 14:01 Assessment/Plan Assessment/Plan Chief Complaint/Hosp Course 1. End-stage renal disease on hemodialysis. 2. Altered level of consciousness, likely secondary to metabolic encephalopathy, secondary to low blood pressures. vs Vascular dementia 3. Mild hyponatremia resolved. 4. Hypotension, resolved. 5. Diabetes. 6. Dysphagia, status post G-tube placement 7. History of vascular dementia. 8. Hypertension. 9. History of falls. 10. Anemia. 11. VRE bacteremia FROM PERMACATH S/P REMOVAL, now with new Permcatth Additional Assessment/Plan - HD yesterday - Monitor H/H -on iv daptomycin -Appreciate vascular/ID consultation -c/w BP medications -Renally dose all meds Consultation Date/Type/Reason Admit Date/Time Oct 16, 2018 at 18:45 Initial Consult Date 10/16/2018 Type of Consult nephrology Reason for Consultation Dr Stringer 24 HR Interval Summary Constitutional: disoriented Exam/Review of Systems Vital Signs Vitals Vital Signs Date Temp Pulse Resp B/P (MAP) Pulse Ox O2 O2 Flow FiO2 Time Delivery Rate 10/30/18 97.7 74 16 100/98 97 13:36 (99) 10/29/18 Room Air 20:09 Intake and Output 10/29/18 10/29/18 10/30/18 1515:00 23:00 07:00 IntakeIntake Total 50 ml 280 ml 350 ml OutputOutput Total 950 ml BalanceBalance -900 ml 280 ml 350 ml Exam left chest Permcath bleeding Constitutional: alert, oriented Gastrointestinal: soft, other (G tube) FLAVIO CLAYTON Oct 30, 2018 14:02
--- NOTE | 2018-10-30 15:20 | CONS ---
Date/Time of Note Date/Time of Note DATE: 10/30/18 TIME: 15:18 Consultation Date/Type/Reason Admit Date/Time Oct 16, 2018 at 18:45 Initial Consult Date Type of Consult SUBJECTIVE: Pt is awake, alert, afebrile. VS: stable. T:97.7 LABS: Reviewed. WBC-7.8 Indwelling: Right chest permacath(removed), PEG Microbiology: Blood cultures since admission grew VRE. Repeat blood cultures from HD cath + are negative. Repeat blood cultures have been negative Antimicrobials: Daptomycin Chest x-ray on admission revealed left lower lung field subsegmental atelectasis no focal consolidation pleural effusion or pneumothorax Physical examination: GEN:Chronically ill-appearing elderly woman who is in no distress. Head atraumatic normocephalic. Neck is supple. Chest rise symmetrical breath sounds diminished bases. Heart: S1-S2. Abdomen soft bowel sounds present Extremities without edema Assessment: 1. Sepsis with VRE bacteremia 2 to infected Pcath 2. Positive urinalysis on admission, urine culture came back negative 3. End-stage renal disease, hemodialysis dependent 4. Dementia 5. Failure to thrive 6. Diabetes Plan: Patient remains stable. Will continue current abx. Repeat blood cultures are negative. Daptomycin ==> last dose Nov 06 Plan: Patient remains unchanged, Exam/Review of Systems Vital Signs Vitals Vital Signs Date Temp Pulse Resp B/P (MAP) Pulse Ox O2 O2 Flow FiO2 Time Delivery Rate 10/30/18 97.7 74 16 100/98 97 13:36 (99) 10/29/18 Room Air 20:09 Intake and Output 10/29/18 10/29/18 10/30/18 1515:00 23:00 07:00 IntakeIntake Total 50 ml 280 ml 350 ml OutputOutput Total 950 ml BalanceBalance -900 ml 280 ml 350 ml SCOTT SHEEHAN Oct 30, 2018 15:20
--- NOTE | 2018-10-30 18:51 | NUR ---
NO ACUTE DISTRESS DURING THE DAY.Pt was calm and was sleeping moist of the day with 1:1 sitter. Pt's vitals stable.Had episode of BP =100/38, Dr. Perez aware.Hydralazine been held. All due meds given. No acute distress noted.No s/s of bleeding noted during the day.Dressing change done. Blood glucose check completed with no insulin coverage.Bolus of Novosource given twice. patient had x 1 large BM. No falls , no injury . Will continue to monitor.
[2018-10-30 19:30] VITALS: BP 138/65; PULSE 75; RESP 16
[2018-10-31 01:10] VITALS: BP 137/66; PULSE 80; RESP 16
[2018-10-31] MEDS: ACCU-CHEK XX SCH ×5 (02:00→21:23)
[2018-10-31] MEDS: LORAZEPAM 1 MG TAB GTB PRN (03:27)
[2018-10-31] MEDS: hydrOXYzine HCL 25 MG TAB GTB PRN (03:27)
[2018-10-31] MEDS: LANSOPRAZOLE 30 MG CAP GTB SCH (05:35)
[2018-10-31] MEDS: HALOPERIDOL 5 MG INJ IM PRN (05:36)
[2018-10-31 07:18] VITALS: BP 106/55; PULSE 91; RESP 18
[2018-10-31] MEDS: QUETIAPINE 25 MG TAB GTB SCH ×2 (09:07→21:24)
[2018-10-31] MEDS: LINAGLIPTIN 5 MG TABLET G-TUBE SCH (09:07)
[2018-10-31] MEDS: SENNA TAB GTB SCH ×2 (09:07→21:23)
[2018-10-31] MEDS: MULTIVIT/CA CARB/B CMPLX/FA TAB GTB SCH (09:07)
[2018-10-31] MEDS: FOLIC ACID 1 MG TAB GTB SCH (09:07)
[2018-10-31] MEDS: METOPROLOL 50 MG TAB GTB SCH ×2 (09:08→21:24)
[2018-10-31] MEDS: FERROUS SULFATE 60 MG/ML 5ML CUP GTB SCH ×2 (09:08→21:23)
[2018-10-31] MEDS: AMLODIPINE 5 MG TAB GTB SCH ×2 (09:08→21:24)
[2018-10-31] MEDS: DOCUSATE SODIUM 10 MG/ML (10ML CUP) GTB SCH (09:11)
[2018-10-31 09:26] VITALS: BP 116/46; PULSE 87
--- NOTE | 2018-10-31 10:08 | PN ---
DATE: 10/30/2018 The patient is seen. She is currently sedated. She received a dose of Haldol at night. She was anxi ous. Overall, no acute events. Status post of 2 units PRBC with dialysis yesterday. The patient's H and H corrected adequately. No active bleeding. Case discussed with Dr. Stringer the focusing machine operator. PHYSICAL EXAMINATION: VITAL SIGNS: Temperature 97.7, pulse 74, respirations 16, blood pressure 100/90, saturation 97%. GENERAL: No acute distress. HEENT: Normocephalic, atraumatic, is resting comfortably, pale. HEENT: Temporal wasting. CARDIOVASCULAR: S1, S2. LUNGS: Clear. ABDOMEN: Soft, nontender. G-tube in place. EXTREMITIES: No clubbing, cyanosis, or edema. LABORATORY DATA: White count 7.8, hemoglobin 9.4, hematocrit 29, platelet count of 81. Chemistry: Sodium is 140, potassium 4.1, chloride 98, bicarbonate 30, BUN is 42, creatinine 0.91 and glucose of 140. Microbiology: Repeat blood culture on 10/23/2018 and are negative. MEDICATIONS: Reviewed and include, daptomycin albumin, sodium chloride, Haldol, hydralazine, metopro lol, heparin, Prevacid, Norvasc, hydralazine, calamine, Colace, folic acid, Kianna-Roque, Tradjenta. Ac cu-Cheks glucose, ferrous sulfate, MiraLax, Senokot, Ativan, Zofran and Tylenol. ASSESSMENT AND PLAN: This is an 83-year-old [place]ian female with history of end-stage renal disease, COPD, vascular dementia, CVA, presented with hypotension, was found to have sepsis and vancomycin-re sistant Enterococcus VRE. 1. Respiratory. Continue monitoring O2 as needed. No evidence of fluid overload state. 2. Cardiovascular. Blood pressure is under control and may even discontinue one or two medications. 3. Infectious disease. Continue treatment for VRE bacteremia, likely due to sepsis. Patient is on daptomycin, last dose on 11/06/2018. 4. Anemia with questionable bleeding through the new Perm-A-Cath. Currently, no evidence of bleedin g, status post transfusion. Monitor hemoglobin and hematocrit. 5. Gastrointestinal. Continue Protonix for gastrointestinal prophylaxis. 6. Dysphagia. Continue G-tube feeding, oral feeding for oral gratification. 7. Psychiatric, p.r.n. Haldol. The patient also on Seroquel. 8. Wound care consult is following, remains stable. DISPOSITION: I discussed with caser up regarding placement. We will follow. Dictated By: DYLON HULL/MADAN Conf#: [id number] DID#: [id number] CC: MIKEL REDDY MD;*EndCC*
--- NOTE | 2018-10-31 10:33 | CONS ---
Date/Time of Note Date/Time of Note DATE: 10/31/18 TIME: 10:31 Assessment/Plan Assessment/Plan Chief Complaint/Hosp Course 1. End-stage renal disease on hemodialysis. 2. Altered level of consciousness, likely secondary to metabolic encephalopathy, secondary to low blood pressures. vs Vascular dementia, better 3. Mild hyponatremia resolved. 4. Hypotension, resolved. 5. Diabetes. 6. Dysphagia, status post G-tube placement 7. History of vascular dementia. 8. Hypertension. 9. History of falls. 10. Anemia. 11. 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 left hand edema and pain Additional Assessment/Plan -left hand xray per primary team - c/w HD - Monitor H/H -on iv daptomycin -Appreciate vascular/ID consultation -c/w BP medications -Renally dose all meds Consultation Date/Type/Reason Admit Date/Time Oct 16, 2018 at 18:45 Initial Consult Date 10/16/2018 Type of Consult nephrology Reason for Consultation Dr Leone 24 HR Interval Summary Constitutional: disoriented Exam/Review of Systems Vital Signs Vitals Vital Signs Date Temp Pulse Resp B/P (MAP) Pulse Ox O2 O2 Flow FiO2 Time Delivery Rate 10/31/18 87 116/46 09:26 (69) 10/31/18 98.0 18 96 Room Air 07:18 Intake and Output 10/30/18 10/30/18 10/31/18 1515:00 23:00 07:00 IntakeIntake Total 780 ml 350 ml BalanceBalance 780 ml 350 ml Exam left chest Permcath with a sand bag Neck: supple Respiratory: diminished breath sounds Cardiovascular: regular rate and rhythm Gastrointestinal: soft, other (g tube) Musculoskeletal: joint tenderness (left wrist), muscle weakness FLAVIO CLAYTON Oct 31, 2018 10:33
--- NOTE | 2018-10-31 12:54 | CONS ---
Date/Time of Note Date/Time of Note DATE: 10/31/18 TIME: 12:53 Assessment/Plan Assessment/Plan Chief Complaint/Hosp Course No acute events overnight patient is sleeping, looks comfortable, she has a sitter at bedside, no fevers Indwelling: Left chest permacath Antimicrobials: Daptomycin Physical examination: Chronically ill-appearing elderly woman who is awake, confused, in no distress. Head atraumatic normocephalic. Neck is supple. Chest rise symmetrical breath sounds diminished bases. Heart: S1-S2. Abdomen soft bowel sounds present extremities without edema Assessment: 1. Status post sepsis with VRE bacteremia 2 to infected Pcath 2. Positive urinalysis on admission, urine culture came back negative 3. End-stage renal disease, hemodialysis dependent 4. Dementia 5. Failure to thrive 6. Diabetes Plan: Patient remains unchanged, repeat blood cultures have been negative, continue Daptomycin ==> last dose Nov 06 staff Consultation Date/Type/Reason Admit Date/Time Oct 16, 2018 at 18:45 Initial Consult Date Type of Consult ID Exam/Review of Systems Vital Signs Vitals Vital Signs Date Temp Pulse Resp B/P (MAP) Pulse Ox O2 O2 Flow FiO2 Time Delivery Rate 10/31/18 87 116/46 09:26 (69) 10/31/18 98.0 18 96 Room Air 07:18 Intake and Output 10/30/18 10/30/18 10/31/18 1515:00 23:00 07:00 IntakeIntake Total 780 ml 350 ml BalanceBalance 780 ml 350 ml PHYLICIA HOLCOMB NP Oct 31, 2018 12:54
[2018-10-31 13:15] VITALS: BP 114/59; PULSE 78; RESP 18
--- NOTE | 2018-10-31 15:49 | PN ---
DATE: 10/31/2018 SUBJECTIVE: The patient was seen. Unfortunately, the patient with possible still bleeding from the left PermCath. PHYSICAL EXAMINATION: VITAL SIGNS: Temperature 98.6, pulse 78, respiration 18, blood pressure 114/59, saturation 99%. GENERAL: The patient is frail. Somebody body ecchymosis is noted. HEENT: The patient is pale, frail, temporal wasting. CARDIOVASCULAR: S1, S2, regular rate. LUNGS: Clear. ABDOMEN: Soft. G-tube in place. EXTREMITIES: No clubbing, cyanosis or edema. LABORATORY DATA: Done yesterday was reviewed. No labs today. Last glucose level: 203, 124, 187. MEDICATIONS: All reviewed as well and include: 1. Daptomycin. 2. Albumin. 3. Haldol. 4. Hydralazine. 5. Lopressor. 6. Heparin after dialysis only. 7. Prevacid 30 daily. 8. Norvasc 5 mg b.i.d. 9. Atarax 25 q.6 p.r.n. 10. Calamine lotion as directed. 11. Colace as directed. 12. Kianna-Roque. 13. Tradjenta. 14. Accu-Cheks hypoglycemia protocol. 15. Seroquel. 16. MiraLax. 17. Iron. 18. Ativan. 19. Senna. 20. Zofran. 21. Tylenol. ASSESSMENT AND PLAN: This is an 83-year-old Luxembourger female with history of end-stage renal disease, chronic obstructive pulmonary disease vascular dementia and cerebrovascular accident, presented with hypotension, was found to have line sepsis vancomycin-resistant Enterococcus. 1. Respiratory: O2 support as needed. 2. Cardiovascular: Vitals are stable. 3. Infectious disease: The patient with vancomycin-resistant Enterococcus bacteremia to complete a course of 2 weeks with daptomycin. 4. Anemia. Monitor bleeding from the PermCath. Transfuse p.r.n. 5. End-stage renal disease. Dialysis done by Dr. Stringer. 6. Dysphagia. Continue G-tube feeding and p.r.n. oral gratification. 7. Psychiatric. Continue Seroquel and p.r.n. Haldol. The patient has a sitter due to risk to harm herself. 8. Wound care consultation is following. We will follow labs tomorrow. Dictated By: DYLON HULL/MADAN Conf#: [id number] DID#: [id number] CC: MIKEL REDDY MD;*End*
[2018-10-31] MEDS: DAPTOMYCIN 230 MG in SOD CHLORIDE 0.9% 100 ML IVPB SCH (16:55)
--- NOTE | 2018-10-31 18:30 | NUR ---
Shift report Patient remain stable during my shift. No acute distress noted. Permacath dressing was done in am by nightclub manager nurse, no sign and symptoms of bleeding noted. Dressing changed was done on right forearm. Blood glucose checked no sign of hypoglycemia noted. Bolus of Novosource given twice. Patient had BM x1. Seen by Dr. Stringer he was concerned about patient's left hand swollen and discoloration. Left hand X-ray was ordered and done. Ice pack was placed on left hand per MD. Notified Dr. Perez his been aware about the patient's hand. Patient still confused, remain on 1:1 sitter. Scheduled for dialysis tomorrow, spoke to [facility] with confirmation no. [id number].
[2018-10-31 19:21] VITALS: BP 146/64; PULSE 93; RESP 18
[2018-11-01] VITALS (22 sets, daily range): BP systolic 79–146; BP diastolic 37–71; PULSE 86–111; RESP 14–18
[2018-11-01] MEDS: ACCU-CHEK XX SCH ×5 (02:00→20:55)
--- NOTE | 2018-11-01 06:11 | NUR ---
shift summary no other major changes noted. Vital signs stable.
[2018-11-01] MEDS: LANSOPRAZOLE 30 MG CAP GTB SCH (06:51)
[2018-11-01] MEDS: DOCUSATE SODIUM 10 MG/ML (10ML CUP) GTB SCH (08:56)
[2018-11-01] MEDS: MULTIVIT/CA CARB/B CMPLX/FA TAB GTB SCH (08:56)
[2018-11-01] MEDS: SENNA TAB GTB SCH ×2 (08:56→20:54)
[2018-11-01] MEDS: hydrOXYzine HCL 25 MG TAB GTB PRN ×2 (08:56→20:54)
[2018-11-01] MEDS: FERROUS SULFATE 60 MG/ML 5ML CUP GTB SCH ×2 (08:56→20:55)
[2018-11-01] MEDS: LINAGLIPTIN 5 MG TABLET G-TUBE SCH (08:56)
[2018-11-01] MEDS: FOLIC ACID 1 MG TAB GTB SCH (08:56)
[2018-11-01] MEDS: AMLODIPINE 5 MG TAB GTB SCH ×2 (08:57→20:54)
[2018-11-01] MEDS: QUETIAPINE 25 MG TAB GTB SCH ×2 (08:57→20:54)
[2018-11-01] MEDS: METOPROLOL 50 MG TAB GTB SCH ×2 (08:57→20:55)
--- NOTE | 2018-11-01 10:33 | QN ---
Documentation Comment L IJ permacath site was bleeding again. I placed a 3-0 Vicryl pursestring stitch around the exit site with no more bleeding. - she is pulling on the catheter - needs a bulky dressing and close monitoring to prevent this MIKEL REDDY MD Nov 01, 2018 10:33
--- NOTE | 2018-11-01 11:30 | NUR ---
Dr. Sagastume informed of patient's left perm-a-cath still bleeding, MD resutured the perm-a-cath, covered with dry dressing, no active bleeding at this time.
[2018-11-01] MEDS ORDERED: SOD CHLORIDE 0.9% IVPB SCH (12:00)
[2018-11-01] MEDS ORDERED: DESMOPRESSIN IVPB SCH (12:00)
[2018-11-01] MEDS ORDERED: GUAIFENESIN 20 MG/ML 5ML CUP PO PRN (13:30)
--- NOTE | 2018-11-01 13:45 | NUR ---
SS NOTE: LOS SW ATTEMPTED TO MEET WITH PT REGARDING LOS. PT IS 83 YR OLD FEMALE ADMITTED FOR ENCEPHALOPATHY. PT APPEARED TO BE CONFUSED AND NOT A&O. SW PLACED CALL AND LEFT VM FOR PT'S DAUGHTER CAESAR ([phone]). SW REMAINS AVAILABLE FOR F/U NEEDED.
--- NOTE | 2018-11-01 13:57 | NUR ---
Confirmed with Dr. Natarajan the indication for Desmopressin, per MD for bleeding. Informed Dr. Tanika ISSA sutured perm-a-cath site, no further bleeding. To continue to give medication as ordered.
--- NOTE | 2018-11-01 14:26 | CONS ---
Date/Time of Note Date/Time of Note DATE: 11/01/18 TIME: 14:25 Assessment/Plan Assessment/Plan Chief Complaint/Hosp Course No acute events overnight patient is sleeping, sitter at bedside, no fevers Indwelling: Left chest permacath Antimicrobials: Daptomycin Physical examination: Chronically ill-appearing elderly woman who is awake, confused, in no distress. Head atraumatic normocephalic. Neck is supple. Chest rise symmetrical breath sounds diminished bases. Heart: S1-S2. Abdomen soft bowel sounds present extremities without edema Assessment: 1. Status post sepsis with VRE bacteremia 2 to infected Pcath 2. Positive urinalysis on admission, urine culture came back negative 3. End-stage renal disease, hemodialysis dependent 4. Dementia 5. Failure to thrive 6. Diabetes Plan: Patient remains unchanged, completing Daptomycin ==> last dose Nov 06 staff Consultation Date/Type/Reason Admit Date/Time Oct 16, 2018 at 18:45 Initial Consult Date Type of Consult ID Exam/Review of Systems Vital Signs Vitals Vital Signs Date Temp Pulse Resp B/P (MAP) Pulse Ox O2 O2 Flow FiO2 Time Delivery Rate 11/01/18 87 117/58 13:50 (77) 11/01/18 98.7 17 99 07:21 10/31/18 Room Air 13:15 Intake and Output 10/31/18 10/31/18 11/01/18 1515:00 23:00 07:00 IntakeIntake Total 920 ml BalanceBalance 920 ml Medications Medications Current Medications Docusate Sodium (Colace Liquid Cup) 100 mg DAILY GTB Last administered on 11/01/18at 08:56; Admin Dose 100 MG; Start 10/17/18 at 09:00 Ferrous Sulfate (Feosol Liquid Cup) 330 mg BID GTB Last administered on 8at 08:56; Admin Dose 330 MG; Start 10/16/18 at 22:00 Folic Acid (Folic Acid) 1 mg DAILY GTB Last administered on 11/01/18at 08:56; Admin Dose 1 MG; Start 10/17/18 at 09:00 Insulin Detemir (Levemir) 8 units DAILY@0800 SC Last administered on 10/17/18at 08:40; Admin Dose 8 UNITS; Start 10/17/18 at 08:00; Status Hold Polyethylene Glycol (Miralax) 8.5 gm DAILY PRN GTB CONSTIPATION; Start 10/16/18 at 22:00 Multivit/Ca Carb/ B Cmplx/FA/Prenat (Kianna-Roque) 1 tab DAILY GTB Last administered on 11/01/18 08:56; Admin Dose 1 TAB; Start 10/17/18 at 09:00 Quetiapine Fumarate (Seroquel) 25 mg BID GTB Last administered on 11/01/18 08:57; Admin Dose 25 MG; Start 10/16/18 at 22:00 Linagliptin (Tradjenta) 5 mg DAILY G-TUBE Last administered on 11/01/18 08:56; Admin Dose 5 MG; Start 10/17/18 at 09:00 Diagnostic Test (Pha) (Accu-Chek) 1 ea AC MEALS AND BEDTIME XX Last administered on 11/01/18 06:51; Admin Dose 1 EA; Start 10/17/18 at 07:00 Lorazepam (Ativan) 1 mg Q8H PRN GTB ANXIETY Last administered on 10/31/18 03:27; Admin Dose 1 MG; Start 10/16/18 at 22:00 Senna (Senokot) 1 tab BID GTB Last administered on 11/01/18 08:56; Admin Dose 1 TAB; Start 10/16/18 at 22:00 Ondansetron HCl (Zofran Inj) 4 mg Q6H PRN IV NAUSEA AND/OR VOMITING; Start 10/16/18 at 22:00 Acetaminophen (Tylenol Liquid) 650 mg Q6 PRN GTB PAIN Last administered on 10/25/18at 20:14; Admin Dose 650 MG; Start 10/16/18 at 22:00 Diagnostic Test (Pha) (Accu-Chek) 1 ea 02 XX Last administered on 11/01/18 02:00; Admin Dose 1 EA; Start 10/17/18 at 02:00 Insulin Aspart (Novolog Insulin Pen) NOVOLOG *MODERATE* ALGORITHM WITH MEALS BEDTIME SC Last administered on 10/17/18 17:48; Admin Dose 4 UNIT; Start 10/17/18 at 08:00; Status Hold Miscellaneous Information 1 ea NOTE XX ; Start 10/16/18 at 22:30 Glucose (Glutose) 15 gm Q15M PRN PO DECREASED GLUCOSE; Start 10/16/18 at 22:30 Glucose (Glutose) 22.5 gm Q15M PRN PO DECREASED GLUCOSE; Start 10/16/18 at 22:30 Dextrose (D50w Syringe) 25 ml Q15M PRN IV DECREASED GLUCOSE; Start 10/16/18 at 22:30 Dextrose (D50w Syringe) 50 ml Q15M PRN IV DECREASED GLUCOSE; Start 10/16/18 at 22:30 Glucagon (Glucagen) 1 mg Q15M PRN IM DECREASED GLUCOSE; Start 10/16/18 at 22:30 Glucose (Glutose) 15 gm Q15M PRN BUCCAL DECREASED GLUCOSE Last administered on 10/17/18at 21:33; Admin Dose 15 GM; Start 10/16/18 at 22:30 Hydroxyzine HCl (Atarax) 25 mg Q6H PRN GTB ITCHING Last administered on 11/01/18at 08:56; Admin Dose 25 MG; Start 10/20/18 at 14:00 Calamine (Calamine Lotion) 1 applic BID PRN TOP itching; Start 10/20/18 at 1 4:00 Amlodipine Besylate (Norvasc) 5 mg BID GTB Last administered on 10/31/18at 21:24; Admin Dose 5 MG; Start 10/20/18 at 21:00 Lansoprazole (Prevacid) 30 mg DAILY@06 GTB Last administered on 11/01/18at 06:51; Admin Dose 30 MG; Start 10/21/18 at 06:00 Hydralazine HCl (Apresoline) 25 mg TID GTB Last administered on 10/31/18at 21:24; Admin Dose 25 MG; Start 10/21/18 at 21:00 Metoprolol Tartrate (Lopressor) 50 mg BID GTB Last administered on 10/31/18at 21:24; Admin Dose 50 MG; Start 10/21/18 at 21:00 Heparin Sodium (Porcine) (Heparin (1000 Units/ml)) 4,000 unit AFTER DIALYSIS CATHETER Last administered on 10/25/18at 19:42; Admin Dose 4,000 UNIT; Start 10/21/18 at 19:00 Haloperidol (Haldol) 2 mg Q4H PRN IM AGITATION Last administered on 10/31/18at 05:36; Admin Dose 2 MG; Start 10/26/18 at 00:30 Albumin Human 50 ml @ 100 mls/hr WITH DIALYSIS PRN IV SBP<90 Last administered on 10/29/18at 12:34; Admin Dose 100 MLS/HR; Start 10/26/18 at 17:00 Sodium Chloride (NS) -To prime the dialy... DIRECTED FOR HD PRN IV SBP<90; Start 10/26/18 at 17:00 Daptomycin 230 mg/ Sodium Chloride 100 ml @ 200 mls/hr Q48H IVPB Last administered on 10/31/18at 16:55; Admin Dose 200 MLS/HR; Start 10/29/18 at 16:00 Desmopressin Acetate 11.6 mcg/ Sodium Chloride 52.9 ml @ 105.8 mls/ hr ONCE IVPB Last administered on 11/01/18at 13:49; Admin Dose 105.8 MLS/HR; Start 11/01/18 at 12:00; Stop 11/01/18 at 18:00 PHYLICIA HOLCOMB NP Nov 01, 2018 14:26
--- NOTE | 2018-11-01 15:02 | CONS ---
Date/Time of Note Date/Time of Note DATE: 11/01/18 TIME: 14:59 Assessment/Plan Assessment/Plan Chief Complaint/Hosp Course 83 y/o with This is an 83-year-old female with: 1. Hypotension, could be secondary to sepsis as the patient has positive bacteremia/urinary tract infection VRE bactermia. s/p permcath removal and new placement The patient was continued on blood pressure medicines aggressively 2. Altered level of consciousness, likely secondary to metabolic encephalopathy, secondary to low blood pressures. vs Vascular dementia 3. Mild hyponatremia. 4. End-stage renal disease on hemodialysis. 5. Diabetes. 6. Dysphagia, status post G-tube feeding. 7. History of vascular dementia. 8. Hypertension. 9. History of falls. 10. Anemia. 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 S/P REMOVAL now with new permcatth 12 Persistent on and off bledeing from permcath > s/p suture today, but pt keep on pulling Plan - HD today - Dr Estevez put it suture along exit site - ddvap as uremic - Monitor H/H -on iv dapto -Appreciate vascular/ID consultation -Renally dose all meds Consultation Date/Type/Reason Admit Date/Time Oct 16, 2018 at 18:45 Initial Consult Date 24 HR Interval Summary Free Text/Dictation permcath site was bleeding again called dr estevez who had put stich around exit site, bleeding stopped pt very uremic Exam/Review of Systems Vital Signs Vitals Vital Signs Date Temp Pulse Resp B/P (MAP) Pulse Ox O2 O2 Flow FiO2 Time Delivery Rate 11/01/18 87 117/58 13:50 (77) 11/01/18 98.7 17 99 07:21 10/31/18 Room Air 13:15 Intake and Output 10/31/18 10/31/18 11/01/18 1515:00 23:00 07:00 IntakeIntake Total 920 ml BalanceBalance 920 ml Exam left chest Permcath not bleeding Constitutional: alert, oriented Gastrointestinal: soft, other (G tube) Medications Medications Current Medications Docusate Sodium (Colace Liquid Cup) 100 mg DAILY GTB Last administered on 11/01at 08:56; Admin Dose 100 MG; Start 10/17/18 at 09:00 Ferrous Sulfate (Feosol Liquid Cup) 330 mg BID GTB Last administered on 11/01/18 08:56; Admin Dose 330 MG; Start 10/16/18 at 22:00 Folic Acid (Folic Acid) 1 mg DAILY GTB Last administered on 11/01/18 08:56; Admin Dose 1 MG; Start 10/17/18 at 09:00 Insulin Detemir (Levemir) 8 units DAILY@0800 SC Last administered on 10/17/18 08:40; Admin Dose 8 UNITS; Start 10/17/18 at 08:00; Status Hold Polyethylene Glycol (Miralax) 8.5 gm DAILY PRN GTB CONSTIPATION; Start 10/16/18 at 22:00 Multivit/Ca Carb/ B Cmplx/FA/Prenat (Kianna-Roque) 1 tab DAILY GTB Last administered on 11/01/18 08:56; Admin Dose 1 TAB; Start 10/17/18 at 09:00 Quetiapine Fumarate (Seroquel) 25 mg BID GTB Last administered on 11/01/18 08:57; Admin Dose 25 MG; Start 10/16/18 at 22:00 Linagliptin (Tradjenta) 5 mg DAILY G-TUBE Last administered on 11/01/18 08: 56; Admin Dose 5 MG; Start 10/17/18 at 09:00 Diagnostic Test (Pha) (Accu-Chek) 1 ea AC MEALS AND BEDTIME XX Last administered on 11/01/18 06:51; Admin Dose 1 EA; Start 10/17/18 at 07:00 Lorazepam (Ativan) 1 mg Q8H PRN GTB ANXIETY Last administered on 10/31/18 03:27; Admin Dose 1 MG; Start 10/16/18 at 22:00 Senna (Senokot) 1 tab BID GTB Last administered on 11/01/18 08:56; Admin Dose 1 TAB; Start 10/16/18 at 22:00 Ondansetron HCl (Zofran Inj) 4 mg Q6H PRN IV NAUSEA AND/OR VOMITING; Start 10/16/18 at 22:00 Acetaminophen (Tylenol Liquid) 650 mg Q6 PRN GTB PAIN Last administered on 10/25/18 20:14; Admin Dose 650 MG; Start 10/16/18 at 22:00 Diagnostic Test (Pha) (Accu-Chek) 1 ea 02 XX Last administered on 11/01/18at 02:00; Admin Dose 1 EA; Start 10/17/18 at 02:00 Insulin Aspart (Novolog Insulin Pen) NOVOLOG *MODERATE* ALGORITHM WITH MEALS BEDTIME SC Last administered on 10/17/18at 17:48; Admin Dose 4 UNIT; Start 10/17/18 at 08:00; Status Hold Miscellaneous Information 1 ea NOTE XX ; Start 10/16/18 at 22:30 Glucose (Glutose) 15 gm Q15M PRN PO DECREASED GLUCOSE; Start 10/16/18 at 22:30 Glucose (Glutose) 22.5 gm Q15M PRN PO DECREASED GLUCOSE; Start 10/16/18 at 22:30 Dextrose (D50w Syringe) 25 ml Q15M PRN IV DECREASED GLUCOSE; Start 10/16/18 at 22:30 Dextrose (D50w Syringe) 50 ml Q15M PRN IV DECREASED GLUCOSE; Start 10/16/18 at 22:30 Glucagon (Glucagen) 1 mg Q15M PRN IM DECREASED GLUCOSE; Start 10/16/18 at 22:30 Glucose (Glutose) 15 gm Q15M PRN BUCCAL DECREASED GLUCOSE Last administered on 10/17/18at 21:33; Admin Dose 15 GM; Start 10/16/18 at 22:30 Hydroxyzine HCl (Atarax) 25 mg Q6H PRN GTB ITCHING Last administered on at 08:56; Admin Dose 25 MG; Start 10/20/18 at 14:00 Calamine (Calamine Lotion) 1 applic BID PRN TOP itching; Start 10/20/18 at 14:00 Amlodipine Besylate (Norvasc) 5 mg BID GTB Last administered on 10/31/18at 21:24; Admin Dose 5 MG; Start 10/20/18 at 21:00 Lansoprazole (Prevacid) 30 mg DAILY@06 GTB Last administered on 11/01/18at 06:51; Admin Dose 30 MG; Start 10/21/18 at 06:00 Hydralazine HCl (Apresoline) 25 mg TID GTB Last administered on 10/31/18at 21:24; Admin Dose 25 MG; Start 10/21/18 at 21:00 Metoprolol Tartrate (Lopressor) 50 mg BID GTB Last administered on 10/31/18 21:24; Admin Dose 50 MG; Start 10/21/18 at 21:00 Heparin Sodium (Porcine) (Heparin (1000 Units/ml)) 4,000 unit AFTER DIALYSIS CATHETER Last administered on 10/25/18at 19:42; Admin Dose 4,000 UNIT; Start 10/21/18 at 19:00 Haloperidol (Haldol) 2 mg Q4H PRN IM AGITATION Last administered on 10/31/18 05:36; Admin Dose 2 MG; Start 10/26/18 at 00:30 Albumin Human 50 ml @ 100 mls/hr WITH DIALYSIS PRN IV SBP<90 Last administered on 10/29/18at 12:34; Admin Dose 100 MLS/HR; Start 10/26/18 at 17:00 Sodium Chloride (NS) -To prime the dialy... DIRECTED FOR HD PRN IV SBP<90; Start 10/26/18 at 17:00 Daptomycin 230 mg/ Sodium Chloride 100 ml @ 200 mls/hr Q48H IVPB Last admi nistered on 10/31/18at 16:55; Admin Dose 200 MLS/HR; Start 10/29/18 at 16:00 Desmopressin Acetate 11.6 mcg/ Sodium Chloride 52.9 ml @ 105.8 mls/ hr ONCE IVPB Last administered on 11/01/18at 13:49; Admin Dose 105.8 MLS/HR; Start 11/01/18 at 12:00; Stop 11/01/18 at 18:00 JOSE RAUL ANDREWS MD Nov 01, 2018 15:02
--- NOTE | 2018-11-01 16:59 | NUR ---
Called [facility] [phone] spoke with Bridget, patient both negative for hepatitis B antigen and surface. To call on 11/03 to fax the result.
[2018-11-01] MEDS ORDERED: ALBUMIN HUMAN 25% 100 ML IV ONE (17:30)
[2018-11-01] MEDS ORDERED: ALBUMIN HUMAN 25% 100 ML IV PRN (18:00)
[2018-11-01] MEDS: HEPARIN 1000 UNITS/ML 10 ML INJ CATHETER SCH (18:02)
--- NOTE | 2018-11-01 18:15 | NUR ---
END OF SHIFT Patient alert, no acute distress. Ongoing dialysis at this time. left chest perm-a-cath no bleeding, covered with dry dressing. Bolus Gt feeding given, tolerated well. Needs attended. Continue 1:1 sitter. due medications given. Will continue to monitor.
--- NOTE | 2018-11-01 18:39 | PN ---
DATE: 11/01/2018 SUBJECTIVE: The patient is seen. I appreciate Dr. Sagastume' left IJ Perm-A-Cath, was sutured as the pa tient had some bleeding now. There is no abnormal bleeding. The patient is currently receiving dial ysis. Slightly hypotensive. Albumin will be given. PHYSICAL EXAMINATION: VITAL SIGNS: Temperature 98.7, pulse 87, earlier blood pressure 113/50, saturation 99%. GENERAL: No acute distress. The patient is resting, pale. CARDIOVASCULAR: S1, S2, regular rate. LUNGS: Clear. ABDOMEN: Soft. G-tube in place. EXTREMITIES: No clubbing, cyanosis, or edema. LABORATORY DATA: White count 9.3, hemoglobin 8.4, hematocrit 25, platelet counts of 102. Chemistry: Last glucose level of 171, 191, and 126. Sodium 137, potassium 4.0, chloride 87, bicarbonate 27, B UN is 81, creatinine 2.89. I am concerned that H and H will continue to drop. She had an x-ray of the hand that shows pronounce d soft tissue swelling over the dorsum of the left hand without visible underlying fracture or other bony lesions. MEDICATIONS: All reviewed include: 1. Daptomycin. 2. Desmopressin. 3. Albumin. 4. Normal saline p.r.n. 5. Haldol 6. Hydralazine. 7. Lopressor. 8. Heparin. 9. Prevacid. 10. Norvasc. 11. Atarax. 12. Calamine. 13. Colace. 14. Folic acid. 15. Kianna-Roque. 16. Tradjenta, hypoglycemia protocol. 17. Lorazepam. 19. Seroquel. 20. MiraLax. 21. Ferrous sulfate. 22. Senna. 23. Zofran. 24. Tylenol. ASSESSMENT AND PLAN: This is an 83-year-old [place] female with history of end-stage renal disease, COPD, vascular dementia, and CVA who presented with hypotension, was found to have underlying sepsis . 1. Respiratory. Stable. 2. Cardiovascular. Blood pressure slightly low during dialysis. Observe. Albumin to be provided. 4. Infectious Disease. The patient has VRE bacteremia on daptomycin, to complete a course of 2 week s. 5. Anemia. May need more transfusion. Follow up H and H tomorrow. 6. End-stage renal disease. Continue dialysis per Dr. Stringer. The patient is currently being dialyz ed. 7. Dysphagia. Continue G-tube feeding and oral feeding for gratification. 8. Psychiatric disorder. Resume Seroquel and p.r.n. Haldol. Continue 1:1 sitter due to risk for se lf. 9. Continue wound care. We will follow closely. Dictated By: DYLON HULL/MADAN Conf#: [id number] DID#: [id number] CC: DYLON WALLS MD;*EndCC*
[2018-11-01] MEDS: LORAZEPAM 1 MG TAB GTB PRN (20:54)
[2018-11-02 02:00] VITALS: BP 132/65; PULSE 84; RESP 18
[2018-11-02] MEDS: ACCU-CHEK XX SCH ×5 (02:35→20:40)
--- NOTE | 2018-11-02 04:36 | NUR ---
SHIFT NOTES: PT STABLE THIS SHIFT. PT WAS RESTLESS AFTER DIALYSIS. PT WAS GIVEN ATIVAN AND ATARAX FOR ANXIETY AND ITCHING RESPECTIVELY. OTHER DUE MEDS GIVEN VIA GTUBE. BOLUS FEEDING GIVEN. SLEPT AT INTERVALS. V/S STABLE. FALL PRECAUTION MAINTAINED. 1:1 SITTER AT THE BEDSIDE. WILL CONTINUE TO MONITOR.
[2018-11-02] MEDS: LANSOPRAZOLE 30 MG CAP GTB SCH (05:44)
--- NOTE | 2018-11-02 06:53 | NUR ---
CRITICAL VALUE: PT'S LATEST HGB IS 6.6. DR. WALLS NOTIFIED, RECEIVED ORDER TO TRANSFUSE 1 UNIT PRBC THIS AM. ORDER NOTED. WILL ENDORSE TO ONCOMING NURSE.
[2018-11-02 07:31] VITALS: BP 155/69; PULSE 84; RESP 18
[2018-11-02] MEDS: QUETIAPINE 25 MG TAB GTB SCH ×2 (08:24→20:43)
[2018-11-02] MEDS: FOLIC ACID 1 MG TAB GTB SCH (08:24)
[2018-11-02] MEDS: MULTIVIT/CA CARB/B CMPLX/FA TAB GTB SCH (08:24)
[2018-11-02] MEDS: SENNA TAB GTB SCH ×2 (08:24→20:43)
[2018-11-02] MEDS: METOPROLOL 50 MG TAB GTB SCH ×2 (08:24→20:44)
[2018-11-02] MEDS: AMLODIPINE 5 MG TAB GTB SCH ×2 (08:25→20:44)
[2018-11-02] MEDS: LINAGLIPTIN 5 MG TABLET G-TUBE SCH (08:25)
[2018-11-02] MEDS: DOCUSATE SODIUM 10 MG/ML (10ML CUP) GTB SCH (08:27)
[2018-11-02] MEDS: FERROUS SULFATE 60 MG/ML 5ML CUP GTB SCH ×2 (08:27→20:42)
--- NOTE | 2018-11-02 13:27 | NUR ---
Patient's Gtube noted with a tear, leaking present. Notified Dr Perez, he will speak with Dr Baird for replacement.
[2018-11-02 14:25] VITALS: BP 120/51; PULSE 82; RESP 18
--- NOTE | 2018-11-02 14:59 | PN ---
DATE: 11/02/2018 SUBJECTIVE: The patient is receiving 1 unit of PRBC as hemoglobin dropped to 6.6, ____ left IJ PermC ath was fixed and sutured and there is no recurrent bleeding. The patient's G-tube is malfunctioning per nursing staff. GI to be consulted. PHYSICAL EXAMINATION: VITAL SIGNS: Temperature 98.5, pulse 84, respirations 18, blood pressure 155/69, saturation 99%. GENERAL: The patient is resting comfortably. The patient has a sitter. HEENT: With temporal wasting, pale. CARDIOVASCULAR: S1 and S2. Regular rate. LUNGS: Clear. ABDOMEN: Soft. G-tube in place. EXTREMITIES: No clubbing, cyanosis or edema. SKIN: The patient does have skin ecchymosis especially in the left hand. LABORATORY DATA: White count 6.6, hemoglobin 6.6, hematocrit 20, platelet count 106, neutrophils 67, bands 4%. Chemistry: Sodium is 141, potassium 3.9, chloride 100, bicarbonate 31, BUN is 29, creati nine 1.56 and glucose 117. MEDICATIONS: All reviewed, include daptomycin. ASSESSMENT AND PLAN: This is an 83-year-old [place] female with history of end-stage renal disease, chronic obstructive pulmonary disease, vascular dementia and cerebrovascular accident, who presented with hypotension, was found to have line sepsis. 1. Respiratory: Stable. 2. Cardiovascular: Monitor vitals. Currently stable. 3. Infectious disease. The patient with vancomycin-resistant Enterococcus bacteremia on daptomycin. 4. Anemia. Transfuse. I do not anticipate further need for transfusion as the patient's bleeding h as stopped. I appreciate vascular surgery in an intervention. 6. End-stage renal disease. Continue dialysis per Dr. Stringer. 7. Dysphagia. Continue G-tube feeding and oral feeding for gratification. 8. Psychiatric disorder. Resume all psych meds including Seroquel and Haldol. Continue 1:1 sitter due to risk for self. 9. Continue wound care. 10. Malfunctioning G-tube. GI to be consulted. Monitor H and H. She is not being dialyzed today, but she may need 1 more unit. We will follow. Dictated By: DYLON HULL/MADAN Conf#: [id number] DID#: [id number] CC: MIKEL REDDY MD;*End*
--- NOTE | 2018-11-02 15:06 | CONS ---
Date/Time of Note Date/Time of Note DATE: 11/02/18 TIME: 15:05 Assessment/Plan Assessment/Plan Chief Complaint/Hosp Course Awake looks comfortable, status post blood transfusion this morning no fevers Indwelling: Left chest permacath Antimicrobials: Daptomycin Physical examination: Chronically ill-appearing elderly woman who is awake, confused, in no distress. Head atraumatic normocephalic. Neck is supple. Chest rise symmetrical breath sounds diminished bases. Heart: S1-S2. Abdomen soft bowel sounds present extremities without edema Assessment: 1. Status post sepsis with VRE bacteremia 2 to infected Pcath 2. Positive urinalysis on admission, urine culture came back negative 3. End-stage renal disease, hemodialysis dependent 4. Dementia 5. Failure to thrive 6. Diabetes 7. Acute on chronic anemia, status post blood transfusion Plan: Patient remains unchanged, completing Daptomycin ==> last dose Nov 06 staff Consultation Date/Type/Reason Admit Date/Time Oct 16, 2018 at 18:45 Initial Consult Date Type of Consult ID Exam/Review of Systems Vital Signs Vitals Vital Signs Date Temp Pulse Resp B/P (MAP) Pulse Ox O2 O2 Flow FiO2 Time Delivery Rate 11/02/18 98.6 82 18 120/51 100 14:25 (74) 11/02/18 Room Air 07:31 Intake and Output 11/01/18 11/01/18 11/02/18 1414:59 22:59 06:59 IntakeIntake Total 52.9 ml 240 ml 409 ml OutputOutput Total 1700 ml BalanceBalance 52.9 ml -1460 ml 409 ml Medications Medications Current Medications Docusate Sodium (Colace Liquid Cup) 100 mg DAILY GTB Last administered on 11/02/18at 08:27; Admin Dose 100 MG; Start 10/17/18 at 09:00 Ferrous Sulfate (Feosol Liquid Cup) 330 mg BID GTB Last administered on 11/02/18at 08:27; Admin Dose 330 MG; Start 10/16/18 at 22:00 Folic Acid (Folic Acid) 1 mg DAILY GTB Last administered on 11/02/18at 08:24; Admin Dose 1 MG; Start 10/17/18 at 09:00 Insulin Detemir (Levemir) 8 units DAILY@0800 SC Last administered on 10/17/18at 08:40; Admin Dose 8 UNITS; Start 10/17/18 at 08:00; Status Hold Polyethylene Glycol (Miralax) 8.5 gm DAILY PRN GTB CONSTIPATION; Start 10/16/18 at 22:00 Multivit/Ca Carb/ B Cmplx/FA/Prenat (Kianna-Roque) 1 tab DAILY GTB Last administered on 11/02/18 08:24; Admin Dose 1 TAB; Start 10/17/18 at 09:00 Quetiapine Fumarate (Seroquel) 25 mg BID GTB Last administered on 11/02/18 08:24; Admin Dose 25 MG; Start 10/16/18 at 22:00 Linagliptin (Tradjenta) 5 mg DAILY G-TUBE Last administered on 11/02/18 08:25; Admin Dose 5 MG; Start 10/17/18 at 09:00 Diagnostic Test (Pha) (Accu-Chek) 1 ea AC MEALS AND BEDTIME XX Last administered on 11/02/18 11:30; Admin Dose 1 EA; Start 10/17/18 at 07:00 Lorazepam (Ativan) 1 mg Q8H PRN GTB ANXIETY Last administered on 11/01/18 20:54; Admin Dose 1 MG; Start 10/16/18 at 22:00 Senna (Senokot) 1 tab BID GTB Last administered on 11/02/18 08:24; Admin Dose 1 TAB; Start 10/16/18 at 22:00 Ondansetron HCl (Zofran Inj) 4 mg Q6H PRN IV NAUSEA AND/OR VOMITING; Start 10/16/18 at 22:00 Acetaminophen (Tylenol Liquid) 650 mg Q6 PRN GTB PAIN Last administered on 10/25/18at 20:14; Admin Dose 650 MG; Start 10/16/18 at 22:00 Diagnostic Test (Pha) (Accu-Chek) 1 ea 02 XX Last administered on 11/02/18 02:35; Admin Dose 1 EA; Start 10/17/18 at 02:00 Insulin Aspart (Novolog Insulin Pen) NOVOLOG *MODERATE* ALGORITHM WITH MEALS BEDTIME SC Last administered on 10/17/18 17:48; Admin Dose 4 UNIT; Start 10/17 at 08:00; Status Hold Miscellaneous Information 1 ea NOTE XX ; Start 10/16/18 at 22:30 Glucose (Glutose) 15 gm Q15M PRN PO DECREASED GLUCOSE; Start 10/16/18 at 22:30 Glucose (Glutose) 22.5 gm Q15M PRN PO DECREASED GLUCOSE; Start 10/16/18 at 22:30 Dextrose (D50w Syringe) 25 ml Q15M PRN IV DECREASED GLUCOSE; Start 10/16/18 at 22:30 Dextrose (D50w Syringe) 50 ml Q15M PRN IV DECREASED GLUCOSE; Start 10/16/18 at 22:30 Glucagon (Glucagen) 1 mg Q15M PRN IM DECREASED GLUCOSE; Start 10/16/18 at 22:30 Glucose (Glutose) 15 gm Q15M PRN BUCCAL DECREASED GLUCOSE Last administered on 10/17/18at 21:33; Admin Dose 15 GM; Start 10/16/18 at 22:30 Hydroxyzine HCl (Atarax) 25 mg Q6H PRN GTB ITCHING Last administered on 11/01/18at 20:54; Admin Dose 25 MG; Start 10/20/18 at 14:00 Calamine (Calamine Lotion) 1 applic BID PRN TOP itching; Start 10/20/18 at 14:00 Amlodipine Besylate (Norvasc) 5 mg BID GTB Last administered on 11/02/18at 08:25; Admin Dose 5 MG; Start 10/20/18 at 21:00 Lansoprazole (Prevacid) 30 mg DAILY@06 GTB Last administered on 11/02/18at 05:44; Admin Dose 30 MG; Start 10/21/18 at 06:00 Hydralazine HCl (Apresoline) 25 mg TID GTB Last administered on 11/02/18at 14:13; Admin Dose 25 MG; Start 10/21/18 at 21:00 Metoprolol Tartrate (Lopressor) 50 mg BID GTB Last administered on 11/02/18at 08:24; Admin Dose 50 MG; Start 10/21/18 at 21:00 Heparin Sodium (Porcine) (Heparin (1000 Units/ml)) 4,000 unit AFTER DIALYSIS CATHETER Last administered on 11/01/18at 18:02; Admin Dose 3,200 UNIT; Start 10/21/18 at 19:00 Haloperidol (Haldol) 2 mg Q4H PRN IM AGITATION Last administered on 10/31/18at 05:36; Admin Dose 2 MG; Start 10/26/18 at 00:30 Albumin Human 50 ml @ 100 mls/hr WITH DIALYSIS PRN IV SBP<90 Last administered on 10/29/18at 12:34; Admin Dose 100 MLS/HR; Start 10/26/18 at 17:00 Sodium Chloride (NS) -To prime the dialy... DIRECTED FOR HD PRN IV SBP<90; Start 10/26/18 at 17:00 Daptomycin 230 mg/ Sodium Chloride 100 ml @ 200 mls/hr Q48H IVPB Last administered on 10/31/18at 16:55; Admin Dose 200 MLS/HR; Start 10/29/18 at 16:00 PHYLICIA HOLCOMB NP Nov 02, 2018 15:06
--- NOTE | 2018-11-02 15:31 | NUR ---
Restraint order discontinued, spoke with Dr Perez, notified MD nursing staff will contact him if restraint will be needed. Order was discontinued as soon as chart check was done. Patient was placed on 1:1 sitter during shift, no restraint was placed on her, no agitation, restlessness or pulling at lines/tubes were noted. Will monitor closely fall precautions in place
[2018-11-02] MEDS: DAPTOMYCIN 230 MG in SOD CHLORIDE 0.9% 100 ML IVPB SCH (17:10)
--- NOTE | 2018-11-02 17:41 | CONS ---
Date/Time of Note Date/Time of Note DATE: 11/02/18 TIME: 17:40 Assessment/Plan Assessment/Plan Chief Complaint/Hosp Course 1. SEPSIS on antibiotic 2. s/p ams 3. Mild hyponatremia. 4. End-stage renal disease on hemodialysis. 5. Diabetes. 6. hx hip fracture 7. History of vascular dementia. 8. Hypertension. 9. History of falls. 10. Anemia. 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 PLAN ANTIBIOTIC CONTINUE HD prbc Consultation Date/Type/Reason Admit Date/Time Oct 16, 2018 at 18:45 Initial Consult Date RENAL no bleeding from cath site Exam/Review of Systems Vital Signs Vitals Vital Signs Date Temp Pulse Resp B/P (MAP) Pulse Ox O2 O2 Flow FiO2 Time Delivery Rate 11/02/18 98.6 82 18 120/51 100 14:25 (74) 11/02/18 Room Air 07:31 Intake and Output 11/01/18 11/01/18 11/02/18 1515:00 23:00 07:00 IntakeIntake Total 52.9 ml 240 ml 409 ml OutputOutput Total 1700 ml BalanceBalance 52.9 ml -1460 ml 409 ml Exam Cardiovascular: regular rate and rhythm Gastrointestinal: soft Musculoskeletal: nl extremities to inspection Extremities: normal pulses Medications Medications Current Medications Docusate Sodium (Colace Liquid Cup) 100 mg DAILY GTB Last administered on 11/02/18at 08:27; Admin Dose 100 MG; Start 10/17/18 at 09:00 Ferrous Sulfate (Feosol Liquid Cup) 330 mg BID GTB Last administered on 11/02/18 08:27; Admin Dose 330 MG; Start 10/16/18 at 22:00 Folic Acid (Folic Acid) 1 mg DAILY GTB Last administered on 11/02/18at 08:24; Admin Dose 1 MG; Start 10/17/18 at 09:00 Insulin Detemir (Levemir) 8 units DAILY@0800 SC Last administered on 10/17/18at 08:40; Admin Dose 8 UNITS; Start 10/17/18 at 08:00; Status Hold Polyethylene Glycol (Miralax) 8.5 gm DAILY PRN GTB CONSTIPATION; Start 10/16/18 at 22:00 Multivit/Ca Carb/ B Cmplx/FA/Prenat (Kianna-Roque) 1 tab DAILY GTB Last administered on 11/02/18 08:24; Admin Dose 1 TAB; Start 10/17/18 at 09:00 Quetiapine Fumarate (Seroquel) 25 mg BID GTB Last administered on 11/02/18 08:24; Admin Dose 25 MG; Start 10/16/18 at 22:00 Linagliptin (Tradjenta) 5 mg DAILY G-TUBE Last administered on 11/02/18 08:25; Admin Dose 5 MG; Start 10/17/18 at 09:00 Diagnostic Test (Pha) (Accu-Chek) 1 ea AC MEALS AND BEDTIME XX Last administered on 11/02/18 11:30; Admin Dose 1 EA; Start 10/17/18 at 07:00 Lorazepam (Ativan) 1 mg Q8H PRN GTB ANXIETY Last administered on 11/01/18 20:54; Admin Dose 1 MG; Start 10/16/18 at 22:00 Senna (Senokot) 1 tab BID GTB Last administered on 11/02/18 08:24; Admin Dose 1 TAB; Start 10/16/18 at 22:00 Ondansetron HCl (Zofran Inj) 4 mg Q6H PRN IV NAUSEA AND/OR VOMITING; Start 10/16/18 at 22:00 Acetaminophen (Tylenol Liquid) 650 mg Q6 PRN GTB PAIN Last administered on 10/25/18 20:14; Admin Dose 650 MG; Start 10/16/18 at 22:00 Diagnostic Test (Pha) (Accu-Chek) 1 ea 02 XX Last administered on 11/02/18 02:35; Admin Dose 1 EA; Start 10/17/18 at 02:00 Insulin Aspart (Novolog Insulin Pen) NOVOLOG *MODERATE* ALGORITHM WITH MEALS BEDTIME SC Last administered on 10/17/18 17:48; Admin Dose 4 UNIT; Start 10/17/18 at 08:00; Status Hold Miscellaneous Information 1 ea NOTE XX ; Start 10/16/18 at 22:30 Glucose (Glutose) 15 gm Q15M PRN PO DECREASED GLUCOSE; Start 10/16/18 at 22:30 Glucose (Glutose) 22.5 gm Q15M PRN PO DECREASED GLUCOSE; Start 10/16/18 at 22:30 Dextrose (D50w Syringe) 25 ml Q15M PRN IV DECREASED GLUCOSE; Start 10/16/18 at 22:30 Dextrose (D50w Syringe) 50 ml Q15M PRN IV DECREASED GLUCOSE; Start 10/16/18 at 22:30 Glucagon (Glucagen) 1 mg Q15M PRN IM DECREASED GLUCOSE; Start 10/16/18 at 22:30 Glucose (Glutose) 15 gm Q15M PRN BUCCAL DECREASED GLUCOSE Last administered on 10/17/18at 21:33; Admin Dose 15 GM; Start 10/16/18 at 22:30 Hydroxyzine HCl (Atarax) 25 mg Q6H PRN GTB ITCHING Last administered on 11/01/18at 20:54; Admin Dose 25 MG; Start 10/20/18 at 14:00 Calamine (Calamine Lotion) 1 applic BID PRN TOP itching; Start 10/20/18 at 14:00 Amlodipine Besylate (Norvasc) 5 mg BID GTB Last administered on 11/02/18 08:25; Admin Dose 5 MG; Start 10/20/18 at 21:00 Lansoprazole (Prevacid) 30 mg DAILY@06 GTB Last administered on 11/02/18at 05:44; Admin Dose 30 MG; Start 10/21/18 at 06:00 Hydralazine HCl (Apresoline) 25 mg TID GTB Last administered on 11/02/18at 14:13; Admin Dose 25 MG; Start 10/21/18 at 21:00 Metoprolol Tartrate (Lopressor) 50 mg BID GTB Last administered on 11/02/18 08:24; Admin Dose 50 MG; Start 10/21/18 at 21:00 Heparin Sodium (Porcine) (Heparin (1000 Units/ml)) 4,000 unit AFTER DIALYSIS CATHETER Last administered on 11/01/18at 18:02; Admin Dose 3,200 UNIT; Start 10/21/18 at 19:00 Haloperidol (Haldol) 2 mg Q4H PRN IM AGITATION Last administered on 10/31/18 05:36; Admin Dose 2 MG; Start 10/26/18 at 00:30 Albumin Human 50 ml @ 100 mls/hr WITH DIALYSIS PRN IV SBP<90 Last administered on 10/29/18at 12:34; Admin Dose 100 MLS/HR; Start 10/26/18 at 17:00 Sodium Chloride (NS) -To prime the dialy... DIRECTED FOR HD PRN IV SBP<90; Start 10/26/18 at 17:00 Daptomycin 230 mg/ Sodium Chloride 100 ml @ 200 mls/hr Q48H IVPB Last administered on 11/02/18at 17:10; Admin Dose 200 MLS/HR; Start 10/29/18 at 16:00 GEOFF KATHLEEN MD Nov 02, 2018 17:41
[2018-11-02] MEDS: ACETAMINOPHEN 650MG/20.3ML CUP GTB PRN (17:46)
--- NOTE | 2018-11-02 19:30 | NUR ---
End of Shift Notes Seen by Dr Baird, plans to replace Gtube tomorrow, daughter spoke with him directly. No distress noted, all needs attended to, seen by Dr Stringer. Endorsed to oncoming shift to expect HD orders for tomorrow. Hourly roundings done, aspiration precatuions in place continue with 1:1 sitter. No episodes of agitation or restlessness noted, will monitor closely
[2018-11-02 19:54] VITALS: BP 165/74; PULSE 90; RESP 18
[2018-11-02 22:31] VITALS: BP 128/61; PULSE 77; RESP 18
[2018-11-03] VITALS (17 sets, daily range): BP systolic 88–165; BP diastolic 40–85; PULSE 73–94; RESP 17–18
[2018-11-03] MEDS: ACCU-CHEK XX SCH ×5 (01:35→21:00)
[2018-11-03] MEDS: LANSOPRAZOLE 30 MG CAP GTB SCH (05:30)
--- NOTE | 2018-11-03 06:21 | NUR ---
EOSS No acute changes in patient's condition. BP remains high. Pt A &OX1. All due meds crushed and given. G tube broken and leaking. No c/o pain. Pt repositioned Q 2 hours. Contact precautions maintained. 1:1 sitter maintained. Pt continues to attempt to pull lines and punch sitter. Plan for day is for Dr. Stringer to put in orders for hemodialysis today. Ice packs applied to hands for swelling and bruising. Hourly rounding done. Bed left in lowest position with bed alarm on. Call light left within reach.
[2018-11-03] MEDS: FERROUS SULFATE 60 MG/ML 5ML CUP GTB SCH ×2 (09:36→20:54)
[2018-11-03] MEDS: DOCUSATE SODIUM 10 MG/ML (10ML CUP) GTB SCH (09:37)
[2018-11-03] MEDS: FOLIC ACID 1 MG TAB GTB SCH (09:38)
[2018-11-03] MEDS: MULTIVIT/CA CARB/B CMPLX/FA TAB GTB SCH (09:38)
[2018-11-03] MEDS: hydrOXYzine HCL 25 MG TAB GTB PRN (09:38)
[2018-11-03] MEDS: SENNA TAB GTB SCH ×2 (09:38→20:54)
[2018-11-03] MEDS: QUETIAPINE 25 MG TAB GTB SCH ×2 (09:38→20:54)
[2018-11-03] MEDS: LORAZEPAM 1 MG TAB GTB PRN ×2 (09:39→20:53)
[2018-11-03] MEDS: LINAGLIPTIN 5 MG TABLET G-TUBE SCH (09:39)
[2018-11-03] MEDS: METOPROLOL 50 MG TAB GTB SCH ×2 (09:40→21:00)
[2018-11-03] MEDS: AMLODIPINE 5 MG TAB GTB SCH ×2 (09:40→21:00)
--- NOTE | 2018-11-03 12:33 | CONS ---
Date/Time of Note Date/Time of Note DATE: 11/03/18 TIME: 12:33 Assessment/Plan Assessment/Plan Hospital Course Patient remains intermittently agitated, currently sleeping no fevers overnight WBC 9.7 H&H 8.6 and 25.3 platelets 148 neutrophils 68.8 Indwelling: Left chest permacath Antimicrobials: Daptomycin Physical examination: Chronically ill-appearing elderly woman who is awake, confused, in no distress. Head atraumatic normocephalic. Neck is supple. Chest rise symmetrical breath sounds diminished bases. Heart: S1-S2. Abdomen soft bowel sounds present extremities without edema Assessment: 1. Status post sepsis with VRE bacteremia 2 to infected Pcath 2. Positive urinalysis on admission, urine culture came back negative 3. End-stage renal disease, hemodialysis dependent 4. Dementia 5. Failure to thrive 6. Diabetes 7. Acute on chronic anemia, status post blood transfusion Plan: Patient remains unchanged, completing Daptomycin ==> last dose Nov 06 staff Result Diagram: 11/03/18 0608 11/03/18 0608 Results 24hrs Laboratory Tests Test 11/02/18 17:54 11/02/18 20:40 11/03/18 06:08 11/03/18 09:33 Bedside Glucose 247 H 161 182 White Blood 9.7 # Count Red Blood Count 3.08 #L Hemoglobin 8.6 #L Hematocrit 25.3 #L Mean Corpuscular 82.1 Volume Mean Corpuscular 27.9 L Hemoglobin Mean Corpuscular 34.0 Hemoglobin Mckayla nt Red Cell 16.0 H Distribution Width Platelet Count 148 # Mean Platelet 12.4 H Volume Immature 0.600 H Granulocytes % Neutrophils % 68.8 Lymphocytes % 13.3 L Monocytes % 10.0 Eosinophils % 6.8 Basophils % 0.5 Nucleated Red 0.0 Blood Cells % Immature 0.060 H Granulocytes # Neutrophils # 6.6 Lymphocytes # 1.3 Monocytes # 1.0 H Eosinophils # 0.7 H Basophils # 0.1 Nucleated Red 0.0 Blood Cells # Sodium Level 141 Potassium Level 3.6 Chloride Level 98 Carbon Dioxide 30 Level Anion Gap 13 Blood Urea 65 #H Nitrogen Creatinine 2.50 H Est Glomerular Filtrat Rate mL/min Glucose Level 153 Calcium Level 9.6 Phosphorus Level 2.3 L Magnesium Level 2.4 Consultation Date/Type/Reason Admit Date/Time Oct 16, 2018 at 18:45 Initial Consult Date Type of Consult ID Exam/Review of Systems Vital Signs Vitals Vital Signs Date Temp Pulse Resp B/P (MAP) Pulse Ox O2 O2 Flow FiO2 Time Delivery Rate 11/03/18 98.1 94 18 151/63 97 08:00 (92) 11/02/18 Room Air 07:31 Intake and Output 11/02/18 11/02/18 11/03/18 1515:00 23:00 07:00 IntakeIntake Total 150 ml OutputOutput Total 1 ml BalanceBalance 149 ml Medications Medications Current Medications Docusate Sodium (Colace Liquid Cup) 100 mg DAILY GTB Last administered on 11/03/18 09:37; Admin Dose 100 MG; Start 10/17/18 at 09:00 Ferrous Sulfate (Feosol Liquid Cup) 330 mg BID GTB Last administered on 11/03/18 09:36; Admin Dose 330 MG; Start 10/16/18 at 22:00 Folic Acid (Folic Acid) 1 mg DAILY GTB Last administered on 11/03/18 09:38; Admin Dose 1 MG; Start 10/17/18 at 09:00 Insulin Detemir (Levemir) 8 units DAILY@0800 SC Last administered on 10/17/18 08:40; Admin Dose 8 UNITS; Start 10/17/18 at 08:00; Status Hold Polyethylene Glycol (Miralax) 8.5 gm DAILY PRN GTB CONSTIPATION; Start 10/16/18 at 22:00 Multivit/Ca Carb/ B Cmplx/FA/Prenat (Kianna-Roque) 1 tab DAILY GTB Last administered on 11/03/18 09:38; Admin Dose 1 TAB; Start 10/17/18 at 09:00 Quetiapine Fumarate (Seroquel) 25 mg BID GTB Last administered on 11/03/18 09:38; Admin Dose 25 MG; Start 10/16/18 at 22:00 Linagliptin (Tradjenta) 5 mg DAILY G-TUBE Last administered on 11/03/18 09:39; Admin Dose 5 MG; Start 10/17/18 at 09:00 Diagnostic Test (Pha) (Accu-Chek) 1 ea AC MEALS AND BEDTIME XX Last administered on 11/03/18 07:00; Admin Dose 1 EA; Start 10/17/18 at 07:00 Lorazepam (Ativan) 1 mg Q8H PRN GTB ANXIETY Last administered on 11/03/18 09:39; Admin Dose 1 MG; Start 10/16/18 at 22:00 Senna (Senokot) 1 tab BID GTB Last administered on 11/03/18 09:38; Admin Dose 1 TAB; Start 10/16/18 at 22:00 Ondansetron HCl (Zofran Inj) 4 mg Q6H PRN IV NAUSEA AND/OR VOMITING; Start 10/16/18 at 22:00 Acetaminophen (Tylenol Liquid) 650 mg Q6 PRN GTB PAIN Last administered on 11/02/18 17:46; Admin Dose 650 MG; Start 10/16/18 at 22:00 Diagnostic Test (Pha) (Accu-Chek) 1 ea 02 XX Last administered on 11/02/18 02:35; Admin Dose 1 EA; Start 10/17/18 at 02:00 Insulin Aspart (Novolog Insulin Pen) NOVOLOG *MODERATE* ALGORITHM WITH MEALS BEDTIME SC Last administered on 10/17/18at 17:48; Admin Dose 4 UNIT; Start 10/17/18 at 08:00; Status Hold Miscellaneous Information 1 ea NOTE XX ; Start 10/16/18 at 22:30 Glucose (Glutose) 15 gm Q15M PRN PO DECREASED GLUCOSE; Start 10/16/18 at 22:30 Glucose (Glutose) 22.5 gm Q15M PRN PO DECREASED GLUCOSE; Start 10/16/18 at 22:30 Dextrose (D50w Syringe) 25 ml Q15M PRN IV DECREASED GLUCOSE; Start 10/16/18 at 22:30 Dextrose (D50w Syringe) 50 ml Q15M PRN IV DECREASED GLUCOSE; Start 10/16/18 at 22:30 Glucagon (Glucagen) 1 mg Q15M PRN IM DECREASED GLUCOSE; Start 10/16/18 at 22:30 Glucose (Glutose) 15 gm Q15M PRN BUCCAL DECREASED GLUCOSE Last administered on 10/17/18at 21:33; Admin Dose 15 GM; Start 10/16/18 at 22:30 Hydroxyzine HCl (Atarax) 25 mg Q6H PRN GTB ITCHING Last administered on 11/03/18 09:38; Admin Dose 25 MG; Start 10/20/18 at 14:00 Calamine (Calamine Lotion) 1 applic BID PRN TOP itching; Start 10/20/18 at 14:00 Amlodipine Besylate (Norvasc) 5 mg BID GTB Last administered on 11/03/18 09:40; Admin Dose 5 MG; Start 10/20/18 at 21:00 Lansoprazole (Prevacid) 30 mg DAILY@06 GTB Last administered on 11/03/18at 05 :30; Admin Dose 30 MG; Start 10/21/18 at 06:00 Hydralazine HCl (Apresoline) 25 mg TID GTB Last administered on 11/03/18 09:37; Admin Dose 25 MG; Start 10/21/18 at 21:00 Metoprolol Tartrate (Lopressor) 50 mg BID GTB Last administered on 11/03/18 09:40; Admin Dose 50 MG; Start 10/21/18 at 21:00 Heparin Sodium (Porcine) (Heparin (1000 Units/ml)) 4,000 unit AFTER DIALYSIS CATHETER Last administered on 11/01/18 18:02; Admin Dose 3,200 UNIT; Start 10/21/18 at 19:00 Haloperidol (Haldol) 2 mg Q4H PRN IM AGITATION Last administered on 10/31/18 05:36; Admin Dose 2 MG; Start 10/26/18 at 00:30 Albumin Human 50 ml @ 100 mls/hr WITH DIALYSIS PRN IV SBP<90 Last administered on 10/29/18at 12:34; Admin Dose 100 MLS/HR; Start 10/26/18 at 17:00 Sodium Chloride (NS) -To prime the dialy... DIRECTED FOR HD PRN IV SBP<90; Start 10/26/18 at 17:00 Daptomycin 230 mg/ Sodium Chloride 100 ml @ 200 mls/hr Q48H IVPB Last administered on 11/02/18 17:10; Admin Dose 200 MLS/HR; Start 10/29/18 at 16:00 PHYLICIA HOLCOMB NP Nov 03, 2018 12:33
--- NOTE | 2018-11-03 13:38 | PN ---
DATE: 11/03/2018 SUBJECTIVE: The patient seen per nursing staff when the patient received a bolus of feeding, it came up a little bit on the mouth and some was tinged with blood slightly. I did request GI consultation as well with Dr. Baird. I did ask for GI consultation. PHYSICAL EXAMINATION: VITAL SIGNS: Temperature 98.1, pulse 74, respiration 18, blood pressure 151/63, saturation 97%. GENERAL: The patient is in no acute distress. The patient is frail, pale, currently resting comfort ably. CARDIOVASCULAR: S1 and S2, regular rate. LUNGS: Clear. ABDOMEN: Soft. G-tube in place. EXTREMITIES: No clubbing, cyanosis, or edema. Patient is contracted. LABORATORY DATA: White count 9.7, hemoglobin 8.6, hematocrit 25, platelet count of 148, much improve d. Sodium 141, potassium 3.6, chloride 98, bicarbonate 30, BUN is 65, creatinine 2.5, glucose 153. Last glucose was 182. CURRENT MEDICATIONS: All reviewed, include: 1. Daptomycin. 2. Albumin. 3. Normal saline p.r.n. 4. Haldol. 5. Hydralazine. 6. Lopressor. 7. Heparin. 8. Prevacid. 9. Norvasc. 10. 11. Colace. 12. Folic acid. 13. Kianna-Roque. 14. Tradjenta. 15. Accu-Chek. 16. MiraLax. 17. Ativan. 18. Senna. 19. . X-ray of the hand was ordered as well, shows pronounced soft tissue swelling over the dorsum of the l eft hand without visible underlying fracture or other bony lesion. ASSESSMENT AND PLAN: This is an 83-year-old [place] female with history of end-stage renal disease, chronic obstructive sleep apnea, vascular dementia and cerebrovascular accident who presented with h ypotension, was found to have line sepsis. 1. Respiratory. Stable. 2. Cardiovascular. Vitals are stable with the above blood pressure meds. 3. Infectious disease. The patient is currently being treated for Vancomycin-resistant enterococci bacteremia, likely due to line sepsis, on daptomycin, to finish the course of antibiotics on 11/06/[address] Proctor. 4. Anemia, status post transfusion. The patient had significant bleeding from her left internal jug ular. Area was sutured by the vascular surgeon. 5. End-stage renal disease, dialysis per Dr. Stringer. 6. Anemia. Again, transfuse p.r.n. 7. Dysphagia. Continue G-tube feeding. 8. Psychiatric disorder. Patient with 1:1 sitter and on antipsychotics. 9. Malfunctioning G-tube with questionable gastrointestinal bleed. Gastroenterology to be consulted . Continue Prevacid and G-tube likely needs to be changed. We will follow. Dictated By: DYLON HULL/MADAN Conf#: [id number] DID#: [id number]
--- NOTE | 2018-11-03 15:16 | NUR ---
PT status: Called [facility] and scheduled patient for Dialysis today per Dr orders, will be done between 6pm-10pm, confirmation # [id number].
--- NOTE | 2018-11-03 15:27 | CONS ---
Date/Time of Note Date/Time of Note DATE: 11/03/18 TIME: 15:26 Assessment/Plan Assessment/Plan Hospital Course 83 y/o with This is an 83-year-old female with: 1. Hypotension, could be secondary to sepsis as the patient has positive bacteremia/urinary tract infection VRE bactermia. s/p permcath removal and new placement The patient was continued on blood pressure medicines aggressively 2. Altered level of consciousness, likely secondary to metabolic encephalopathy, secondary to low blood pressures. vs Vascular dementia 3. Mild hyponatremia. 4. End-stage renal disease on hemodialysis. 5. Diabetes. 6. Dysphagia, status post G-tube feeding. 7. History of vascular dementia. 8. Hypertension. 9. History of falls. 10. Anemia. 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 S/P REMOVAL now with new permcatth 12 Persistent on and off bledeing from permcath > s/p suture Plan - HD today - Monitor H/H -on iv dapto per ID -GI consultation for G-tube leaking -Appreciate vascular/ID consultation -Renally dose all meds Result Diagram: 11/03/18 0608 11/03/18 0608 Results 24hrs Laboratory Tests Test 11/02/18 17:54 11/02/18 20:40 11/03/18 06:08 11/03/18 09:33 Bedside Glucose 247 H 161 182 White Blood 9.7 # Count Red Blood Count 3.08 #L Hemoglobin 8.6 #L Hematocrit 25.3 #L Mean Corpuscular 82.1 Volume Mean Corpuscular 27.9 L Hemoglobin Mean Corpuscular 34.0 Hemoglobin Mckayla nt Red Cell 16.0 H Distribution Width Platelet Count 148 # Mean Platelet 12.4 H Volume Immature 0.600 H Granulocytes % Neutrophils % 68.8 Lymphocytes % 13.3 L Monocytes % 10.0 Eosinophils % 6.8 Basophils % 0.5 Nucleated Red 0.0 Blood Cells % Immature 0.060 H Granulocytes # Neutrophils # 6.6 Lymphocytes # 1.3 Monocytes # 1.0 H Eosinophils # 0.7 H Basophils # 0.1 Nucleated Red 0.0 Blood Cells # Sodium Level 141 Potassium Level 3.6 Chloride Level 98 Carbon Dioxide 30 Level Anion Gap 13 Blood Urea 65 #H Nitrogen Creatinine 2.50 H Est Glomerular Filtrat Rate mL/min Glucose Level 153 Calcium Level 9.6 Phosphorus Level 2.3 L Magnesium Level 2.4 Test 11/03/18 13:32 Bedside Glucose 152 Consultation Date/Type/Reason Admit Date/Time Oct 16, 2018 at 18:45 Initial Consult Date 24 HR Interval Summary Free Text/Dictation Patient remains confused. Exam/Review of Systems Vital Signs Vitals Vital Signs Date Temp Pulse Resp B/P (MAP) Pulse Ox O2 O2 Flow FiO2 Time Delivery Rate 11/03/18 99.2 73 18 110/47 97 14:00 (68) 11/02/18 Room Air 07:31 Intake and Output 11/02/18 11/02/18 11/03/18 1414:59 22:59 06:59 IntakeIntake Total 150 ml OutputOutput Total 1 ml BalanceBalance 149 ml Exam Exam left chest Permcath not bleeding Constitutional: CONFUSED Gastrointestinal: soft, other (G tube) LEAKING LEFT Permacath Bruises++ Medications Medications Current Medications Docusate Sodium (Colace Liquid Cup) 100 mg DAILY GTB Last administered on 11/03/18at 09:37; Admin Dose 100 MG; Start 10/17/18 at 09:00 Ferrous Sulfate (Feosol Liquid Cup) 330 mg BID GTB Last administered on 11/03/18at 09:36; Admin Dose 330 MG; Start 10/16/18 at 22:00 Folic Acid (Folic Acid) 1 mg DAILY GTB Last administered on 11/03/18at 09:38; Admin Dose 1 MG; Start 10/17/18 at 09:00 Insulin Detemir (Levemir) 8 units DAILY@0800 SC Last administered on 10/17/18at 08:40; Admin Dose 8 UNITS; Start 10/17/18 at 08:00; Status Hold Polyethylene Glycol (Miralax) 8.5 gm DAILY PRN GTB CONSTIPATION; Start 10/16/18 at 22:00 Multivit/Ca Carb/ B Cmplx/FA/Prenat (Kianna-Roque) 1 tab DAILY GTB Last administered on 11/03/18at 09:38; Admin Dose 1 TAB; Start 10/17/18 at 09:00 Quetiapine Fumarate (Seroquel) 25 mg BID GTB Last administered on 11/03/18 09:38; Admin Dose 25 MG; Start 10/16/18 at 22:00 Linagliptin (Tradjenta) 5 mg DAILY G-TUBE Last administered on 11/03/18 09:39; Admin Dose 5 MG; Start 10/17/18 at 09:00 Diagnostic Test (Pha) (Accu-Chek) 1 ea AC MEALS AND BEDTIME XX Last administered on 11/03/18 11:30; Admin Dose 1 EA; Start 10/17/18 at 07:00 Lorazepam (Ativan) 1 mg Q8H PRN GTB ANXIETY Last administered on 11/03/18 09:39; Admin Dose 1 MG; Start 10/16/18 at 22:00 Senna (Senokot) 1 tab BID GTB Last administered on 11/03/18 09:38; Admin Dose 1 TAB; Start 10/16/18 at 22:00 Ondansetron HCl (Zofran Inj) 4 mg Q6H PRN IV NAUSEA AND/OR VOMITING; Start 10/16/18 at 22:00 Acetaminophen (Tylenol Liquid) 650 mg Q6 PRN GTB PAIN Last administered on 11/02/18 17:46; Admin Dose 650 MG; Start 10/16/18 at 22:00 Diagnostic Test (Pha) (Accu-Chek) 1 ea 02 XX Last administered on 11/02/18 02:35; Admin Dose 1 EA; Start 10/17/18 at 02:00 Insulin Aspart (Novolog Insulin Pen) NOVOLOG *MODERATE* ALGORITHM WITH MEALS BEDTIME SC Last administered on 10/17/18 17:48; Admin Dose 4 UNIT; Start 10/17/18 at 08:00; Status Hold Miscellaneous Information 1 ea NOTE XX ; Start 10/16/18 at 22:30 Glucose (Glutose) 15 gm Q15M PRN PO DECREASED GLUCOSE; Start 10/16/18 at 22:30 Glucose (Glutose) 22.5 gm Q15M PRN PO DECREASED GLUCOSE; Start 10/16/18 at 22:30 Dextrose (D50w Syringe) 25 ml Q15M PRN IV DECREASED GLUCOSE; Start 10/16/18 at 22:30 Dextrose (D50w Syringe) 50 ml Q15M PRN IV DECREASED GLUCOSE; Start 10/16/18 at 22:30 Glucagon (Glucagen) 1 mg Q15M PRN IM DECREASED GLUCOSE; Start 10/16/18 at 22:30 Glucose (Glutose) 15 gm Q15M PRN BUCCAL DECREASED GLUCOSE Last administered on 10/17/18 21:33; Admin Dose 15 GM; Start 10/16/18 at 22:30 Hydroxyzine HCl (Atarax) 25 mg Q6H PRN GTB ITCHING Last administered on 11/03/18 09:38; Admin Dose 25 MG; Start 10/20/18 at 14:00 Calamine (Calamine Lotion) 1 applic BID PRN TOP itching; Start 10/20/18 at 14:00 Amlodipine Besylate (Norvasc) 5 mg BID GTB Last administered on 11/03/18 09:40; Admin Dose 5 MG; Start 10/20/18 at 21:00 Lansoprazole (Prevacid) 30 mg DAILY@06 GTB Last administered on 11/03/18 05:30; Admin Dose 30 MG; Start 10/21/18 at 06:00 Hydralazine HCl (Apresoline) 25 mg TID GTB Last administered on 11/03/18 13:37; Admin Dose 25 MG; Start 10/21/18 at 21:00 Metoprolol Tartrate (Lopressor) 50 mg BID GTB Last administered on 11/03/18 09:40; Admin Dose 50 MG; Start 10/21/18 at 21:00 Heparin Sodium (Porcine) (Heparin (1000 Units/ml)) 4,000 unit AFTER DIALYSIS CATHETER Last administered on 11/01/18 18:02; Admin Dose 3,200 UNIT; Start 10/21/18 at 19:00 Haloperidol (Haldol) 2 mg Q4H PRN IM AGITATION Last administered on 10/31/18 05:36; Admin Dose 2 MG; Start 10/26/18 at 00:30 Albumin Human 50 ml @ 100 mls/hr WITH DIALYSIS PRN IV SBP<90 Last administered on 10/29/18 12:34; Admin Dose 100 MLS/HR; Start 10/26/18 at 17:00 Sodium Chloride (NS) -To prime the dialy... DIRECTED FOR HD PRN IV SBP<90; Start 10/26/18 at 17:00 Daptomycin 230 mg/ Sodium Chloride 100 ml @ 200 mls/hr Q48H IVPB Last administered on 11/02/18 17:10; Admin Dose 200 MLS/HR; Start 10/29/18 at 16:00 Sodium Chloride (NS) -To prime the dialy... DIRECTED FOR HD PRN IV SBP<90; Start 11/03/18 at 15:30 JOSE RAUL ANDREWS MD Nov 03, 2018 15:27
[2018-11-03] MEDS ORDERED: SODIUM CHLORIDE 0.9% 1L BAG IV PRN (15:30)
[2018-11-03] MEDS: ACETAMINOPHEN 650MG/20.3ML CUP GTB PRN (16:31)
--- NOTE | 2018-11-03 17:57 | CONS ---
DATE OF ADMISSION: 10/16/2018 DATE OF CONSULTATION: 11/02/2018 TYPE OF CONSULTATION: Gastroenterology. From Chriss Baird MD, to Kemar Walls MD HISTORY OF PRESENT ILLNESS: The patient is an 83-year-old [place] female with end-stage renal disea se on dialysis, diastolic heart failure, diabetes mellitus, hypertension, dementia, was admitted a fe w days ago with complaints of hypotension which was noticed when the patient was on dialysis. The alvaro collins was admitted for further management. There was no GI bleeding then. 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 The patient has been optimized during her stay in the hospital. GI consult was call ed in for malfunctioning of the G-tube. As per the staff whenever they give the bolus, there is a qu estionable some food is coming out through the mouth. PAST MEDICAL HISTORY: End-stage renal disease, diabetes mellitus, COPD, diastolic dysfunction. ALLERGIES: NONE. PAST SURGICAL HISTORY: and G-tube placement. MEDICATIONS: All reviewed. DIAGNOSTIC DATA: CT scan of the head was normal. No acute changes. IMPRESSION: 1. Dysphagia, status post G-tube placement. 2. Malfunctioning G-tube. 3. Psychiatric disorder. 4. Hypertension. 5. End-stage renal disease. 6. Anemia. 7. Hypertension, which is optimized. PLAN: I discussed with the daughter. We will change the G-tube. I have asked staff to bring the G- tube to the floor. Dictated By: CHRISS BAIRD MD PJ/NTS Conf#: [id number] DID#: [id number] CC: KEMAR WALLS MD; MIKEL REDDY MD;*EndCC*
--- NOTE | 2018-11-03 18:54 | NUR ---
EOSS: Patient is in bed with a 1:1 sitter. Pt is a/o x1, not able to comprehend care plan. PT has bed alarm on. Hemodialysis nurse is in patient room to start dialysis. Gtube will be replaced by tomorrow until gtube FR20 and Fr26 is found to replace current gtube. Current gtube is leaking. No other signs of distress noted. Call light within reach.
[2018-11-04 01:50] VITALS: BP 133/88; PULSE 86; RESP 17
[2018-11-04] MEDS: ACCU-CHEK XX SCH ×5 (02:00→21:00)
[2018-11-04] MEDS: LANSOPRAZOLE 30 MG CAP GTB SCH (05:12)
[2018-11-04] MEDS: LORAZEPAM 1 MG TAB GTB PRN (05:12)
--- NOTE | 2018-11-04 06:39 | PN ---
Date/Time of Note Date/Time of Note DATE: 11/04/18 TIME: 06:39 Assessment/Plan VTE Prophylaxis Risk score (from [facility])>0 risk: 6 SCD applied (from [facility]): No Lines/Catheters IV Catheter Type (from Nrsg): Saline Lock Urinary Cath still in place: No Assessment/Plan Hospital Course 83 yo female 1. Dysphagia, status post G-tube placement. 2. Malfunctioning G-tube. 3. Psychiatric disorder. 4. Hypertension. 5. End-stage renal disease. 6. Anemia. 7. Hypertension, which is optimized. Plan: Result Diagram: 11/04/1845611/04/18456 Results 24hrs Laboratory Tests Test 11/03/18 09:33 11/03/18 13:32 11/03/18 18:24 11/03/18 22:18 Bedside Glucose 182 152 190 117 Test 11/04/18 04:57 White Blood 10.0 Count Red Blood Count 2.93 L Hemoglobin 8.2 L Hematocrit 24.3 L Mean Corpuscular 82.9 Volume Mean Corpuscular 28.0 L Hemoglobin Mean Corpuscular 33.7 Hemoglobin Mckayla nt Red Cell 16.1 H Distribution Width Platelet Count 188 # Mean Platelet 12.3 H Volume Immature 0.600 H Granulocytes % Neutrophils % 71.2 Lymphocytes % 13.4 L Monocytes % 9.6 Eosinophils % 4.9 Basophils % 0.3 Nucleated Red 0.2 H Blood Cells % Immature 0.060 H Granulocytes # Neutrophils # 7.1 Lymphocytes # 1.3 Monocytes # 1.0 H Eosinophils # 0.5 Basophils # 0.0 Nucleated Red 0.0 Blood Cells # Sodium Level 139 Potassium Level 3.7 Chloride Level 100 Carbon Dioxide 32 H Level Anion Gap 7 Blood Urea 25 #H Nitrogen Creatinine 1.27 #H Est Glomerular Filtrat Rate mL/min Glucose Level 175 Calcium Level 8.7 Phosphorus Level 1.7 L Magnesium Level 2.0 Creatine Kinase 111 Exam/Review of Systems Vital Signs Vitals Vital Signs Date Temp Pulse Resp B/P (MAP) Pulse Ox O2 O2 Flow FiO2 Time Delivery Rate 11/04/18 98.3 86 17 133/88 95 01:50 (103) 11/03/18 Room Air 19:00 Intake and Output 11/03/18 11/03/18 11/04/18 1515:00 23:00 07:00 OutputOutput Total 700 ml BalanceBalance -700 ml Medications Medications Current Medications Docusate Sodium (Colace Liquid Cup) 100 mg DAILY GTB Last administered on 11/03/18 09:37; Admin Dose 100 MG; Start 10/17/18 at 09:00 Ferrous Sulfate (Feosol Liquid Cup) 330 mg BID GTB Last administered on 11/03/18 20:54; Admin Dose 330 MG; Start 10/16/18 at 22:00 Folic Acid (Folic Acid) 1 mg DAILY GTB Last administered on 11/03/18 09:38; Admin Dose 1 MG; Start 10/17/18 at 09:00 Insulin Detemir (Levemir) 8 units DAILY@0800 SC Last administered on 10/17/18 08:40; Admin Dose 8 UNITS; Start 10/17/18 at 08:00; Status Hold Polyethylene Glycol (Miralax) 8.5 gm DAILY PRN GTB CONSTIPATION; Start 10/16/18 at 22:00 Multivit/Ca Carb/ B Cmplx/FA/Prenat (Kianna-Roque) 1 tab DAILY GTB Last administered on 11/03/18 09:38; Admin Dose 1 TAB; Start 10/17/18 at 09:00 Quetiapine Fumarate (Seroquel) 25 mg BID GTB Last administered on 11/03/18 20:54; Admin Dose 25 MG; Start 10/16/18 at 22:00 Linagliptin (Tradjenta) 5 mg DAILY G-TUBE Last administered on 11/03/18 09:39; Admin Dose 5 MG; Start 10/17/18 at 09:00 Diagnostic Test (Pha) (Accu-Chek) 1 ea AC MEALS AND BEDTIME XX Last administered on 11/03/18 17:30; Admin Dose 1 EA; Start 10/17/18 at 07:00 Lorazepam (Ativan) 1 mg Q8H PRN GTB ANXIETY Last administered on 11/04/18 05:12; Admin Dose 1 MG; Start 10/16/18 at 22:00 Senna (Senokot) 1 tab BID GTB Last administered on 11/03/18 20:54; Admin Dose 1 TAB; Start 10/16/18 at 22:00 Ondansetron HCl (Zofran Inj) 4 mg Q6H PRN IV NAUSEA AND/OR VOMITING; Start 10/16/18 at 22:00 Acetaminophen (Tylenol Liquid) 650 mg Q6 PRN GTB PAIN Last administered on 11/03/18at 16:31; Admin Dose 650 MG; Start 10/16/18 at 22:00 Diagnostic Test (Pha) (Accu-Chek) 1 ea 02 XX Last administered on 11/02/18at 02:35; Admin Dose 1 EA; Start 10/17/18 at 02:00 Insulin Aspart (Novolog Insulin Pen) NOVOLOG *MODERATE* ALGORITHM WITH MEALS BEDTIME SC Last administered on 10/17/18at 17:48; Admin Dose 4 UNIT; Start 10/17/18 at 08:00; Status Hold Miscellaneous Information 1 ea NOTE XX ; Start 10/16/18 at 22:30 Glucose (Glutose) 15 gm Q15M PRN PO DECREASED GLUCOSE; Start 10/16/18 at 22:30 Glucose (Glutose) 22.5 gm Q15M PRN PO DECREASED GLUCOSE; Start 10/16/18 at 22:30 Dextrose (D50w Syringe) 25 ml Q15M PRN IV DECREASED GLUCOSE; Start 10/16/18 at 22:30 Dextrose (D50w Syringe) 50 ml Q15M PRN IV DECREASED GLUCOSE; Start 10/16/18 at 22:30 Glucagon (Glucagen) 1 mg Q15M PRN IM DECREASED GLUCOSE; Start 10/16/18 at 22:30 Glucose (Glutose) 15 gm Q15M PRN BUCCAL DECREASED GLUCOSE Last administered on 10/17/18at 21:33; Admin Dose 15 GM; Start 10/16/18 at 22:30 Hydroxyzine HCl (Atarax) 25 mg Q6H PRN GTB ITCHING Last administered on 11/03/18at 09:38; Admin Dose 25 MG; Start 10/20/18 at 14:00 Calamine (Calamine Lotion) 1 applic BID PRN TOP itching; Start 10/20/18 at 14:00 Amlodipine Besylate (Norvasc) 5 mg BID GTB Last administered on 11/03/18at 09:40; Admin Dose 5 MG; Start 10/20/18 at 21:00 Lansoprazole (Prevacid) 30 mg DAILY@06 GTB Last administered on 11/04/18at 05:12; Admin Dose 30 MG; Start 10/21/18 at 06:00 Hydralazine HCl (Apresoline) 25 mg TID GTB Last administered on 11/03/18at 13:37; Admin Dose 25 MG; Start 10/21/18 at 21:00 Metoprolol Tartrate (Lopressor) 50 mg BID GTB Last administered on 11/03/18at 09:40; Admin Dose 50 MG; Start 10/21/18 at 21:00 Heparin Sodium (Porcine) (Heparin (1000 Units/ml)) 4,000 unit AFTER DIALYSIS CATHETER Last administered on 11/01/18at 18:02; Admin Dose 3,200 UNIT; Start 10/21/18 at 19:00 Haloperidol (Haldol) 2 mg Q4H PRN IM AGITATION Last administered on 10/31/18at 05:36; Admin Dose 2 MG; Start 10/26/18 at 00:30 Albumin Human 50 ml @ 100 mls/hr WITH DIALYSIS PRN IV SBP<90 Last administered on 10/29/18at 12:34; Admin Dose 100 MLS/HR; Start 10/26/18 at 17:00 Sodium Chloride (NS) -To prime the dialy... DIRECTED FOR HD PRN IV SBP<90; Start 10/26/18 at 17:00 Daptomycin 230 mg/ Sodium Chloride 100 ml @ 200 mls/hr Q48H IVPB Last adm inistered on 11/02/18at 17:10; Admin Dose 200 MLS/HR; Start 10/29/18 at 16:00 Sodium Chloride (NS) -To prime the dialy... DIRECTED FOR HD PRN IV SBP<90; Start 11/03/18 at 15:30 CHRISS WELCH MD Nov 04, 2018 06:39
--- NOTE | 2018-11-04 06:57 | NUR ---
Hemodialysis completed last night via Perma Cath in left chest area. Patient confused, calling out & yelling becoming disruptive. Was medicated last night with Ativan with seroquel , made her sleep for a while. GT bolus feeding given last night, no vomiting or leakage noted. Accu check result within normal limits. Remain with 1:1 sitter for safety , contact isolation precaution observed. Kept comfortable in bed, Vital signs stable.
[2018-11-04 07:15] VITALS: BP 183/74; PULSE 88; RESP 18
--- NOTE | 2018-11-04 08:55 | PN ---
Date/Time of Note Date/Time of Note DATE: 11/04/18 TIME: 08:53 Assessment/Plan VTE Prophylaxis [place] [facility] [place] risk: 6 SCD applied ([place] [facility] [place] No SCD contraindicated: patient refusal Pharmacological prophylaxis: NA/contraindicated Pharm contraindication: low risk/ambulating Lines/Catheters IV Catheter Type (from [facility]): Saline Lock Urinary Cath still in place: No Assessment/Plan Hospital Course 83 yo female 1. Dysphagia, status post G-tube placement. 2. Malfunctioning G-tube. 3. Psychiatric disorder. 4. Hypertension. 5. End-stage renal disease. 6. Anemia. 7. Hypertension, which is optimized. PLAN: 18 lao g tube placed. Return gastric fluid. KUB fir g tub placement Pt examined and plan of care discussed with Dr. Baird Result Diagram: 11/04/18 0457 11/04/18 0457 Results 24hrs Laboratory Tests Test 11/03/18 09:33 11/03/18 13:32 11/03/18 18:24 11/03/18 22:18 Bedside Glucose 182 152 190 117 Test 11/04/18 04:57 White Blood 10.0 Count Red Blood Count 2.93 L Hemoglobin 8.2 L Hematocrit 24.3 L Mean Corpuscular 82.9 Volume Mean Corpuscular 28.0 L Hemoglobin Mean Corpuscular 33.7 Hemoglobin Mckayla nt Red Cell 16.1 H Distribution Width Platelet Count 188 # Mean Platelet 12.3 H Volume Immature 0.600 H Granulocytes % Neutrophils % 71.2 Lymphocytes % 13.4 L Monocytes % 9.6 Eosinophils % 4.9 Basophils % 0.3 Nucleated Red 0.2 H Blood Cells % Immature 0.060 H Granulocytes # Neutrophils # 7.1 Lymphocytes # 1.3 Monocytes # 1.0 H Eosinophils # 0.5 Basophils # 0.0 Nucleated Red 0.0 Blood Cells # Sodium Level 139 Potassium Level 3.7 Chloride Level 100 Carbon Dioxide 32 H Level Anion Gap 7 Blood Urea 25 #H Nitrogen Creatinine 1.27 #H Est Glomerular Filtrat Rate mL/min Glucose Level 175 Calcium Level 8.7 Phosphorus Level 1.7 L Magnesium Level 2.0 Creatine Kinase 111 Exam/Review of Systems Vital Signs Vitals Vital Signs Date Temp Pulse Resp B/P (MAP) Pulse Ox O2 O2 Flow FiO2 Time Delivery Rate 11/04/18 98.6 88 18 183/74 98 07:15 (110) 11/03/18 Room Air 19:00 Intake and Output 11/03/18 11/03/18 11/04/18 1515:00 23:00 07:00 OutputOutput Total 700 ml BalanceBalance -700 ml Exam Constitutional: alert Psych: no complaints Head: normocephalic Eyes: nl sclera, PERRL ENMT: mucosa pink and moist Respiratory: clear to auscultation Cardiovascular: regular rate and rhythm Gastrointestinal: soft, non-tender Extremities: normal pulses 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: nl speech Medications Medications Current Medications Docusate Sodium (Colace Liquid Cup) 100 mg DAILY GTB Last administered on 11/03/18 09:37; Admin Dose 100 MG; Start 10/17/18 at 09:00 Ferrous Sulfate (Feosol Liquid Cup) 330 mg BID GTB Last administered on 11/03/18 20:54; Admin Dose 330 MG; Start 10/16/18 at 22:00 Folic Acid (Folic Acid) 1 mg DAILY GTB Last administered on 11/03/18 09:38; Admin Dose 1 MG; Start 10/17/18 at 09:00 Insulin Detemir (Levemir) 8 units DAILY@0800 SC Last administered on 10/17/18 08:40; Admin Dose 8 UNITS; Start 10/17/18 at 08:00; Status Hold Polyethylene Glycol (Miralax) 8.5 gm DAILY PRN GTB CONSTIPATION; Start 10/16/18 at 22:00 Multivit/Ca Carb/ B Cmplx/FA/Prenat (Kianna-Roque) 1 tab DAILY GTB Last administered on 11/03/18 09:38; Admin Dose 1 TAB; Start 10/17/18 at 09:00 Quetiapine Fumarate (Seroquel) 25 mg BID GTB Last administered on 11/03/18 20:54; Admin Dose 25 MG; Start 10/16/18 at 22:00 Linagliptin (Tradjenta) 5 mg DAILY G-TUBE Last administered on 11/03/18 09:39; Admin Dose 5 MG; Start 10/17/18 at 09:00 Diagnostic Test (Pha) (Accu-Chek) 1 ea AC MEALS AND BEDTIME XX Last administered on 11/03/18 17:30; Admin Dose 1 EA; Start 10/17/18 at 07:00 Lorazepam (Ativan) 1 mg Q8H PRN GTB ANXIETY Last administered on 11/04/18at 05:12; Admin Dose 1 MG; Start 10/16/18 at 22:00 Senna (Senokot) 1 tab BID GTB Last administered on 11/03/18at 20:54; Admin Dose 1 TAB; Start 10/16/18 at 22:00 Ondansetron HCl (Zofran Inj) 4 mg Q6H PRN IV NAUSEA AND/OR VOMITING; Start at 22:00 Acetaminophen (Tylenol Liquid) 650 mg Q6 PRN GTB PAIN Last administered on 11/03/18at 16:31; Admin Dose 650 MG; Start 10/16/18 at 22:00 Diagnostic Test (Pha) (Accu-Chek) 1 ea 02 XX Last administered on 11/02/18at 02:35; Admin Dose 1 EA; Start 10/17/18 at 02:00 Insulin Aspart (Novolog Insulin Pen) NOVOLOG *MODERATE* ALGORITHM WITH MEALS BEDTIME SC Last administered on 10/17/18at 17:48; Admin Dose 4 UNIT; Start 10/17/18 at 08:00; Status Hold Miscellaneous Information 1 ea NOTE XX ; Start 10/16/18 at 22:30 Glucose (Glutose) 15 gm Q15M PRN PO DECREASED GLUCOSE; Start 10/16/18 at 22:30 Glucose (Glutose) 22.5 gm Q15M PRN PO DECREASED GLUCOSE; Start 10/16/18 at 22:30 Dextrose (D50w Syringe) 25 ml Q15M PRN IV DECREASED GLUCOSE; Start 10/16/18 at 22:30 Dextrose (D50w Syringe) 50 ml Q15M PRN IV DECREASED GLUCOSE; Start 10/16/18 at 22:30 Glucagon (Glucagen) 1 mg Q15M PRN IM DECREASED GLUCOSE; Start 10/16/18 at 22:30 Glucose (Glutose) 15 gm Q15M PRN BUCCAL DECREASED GLUCOSE Last administered on 10/17/18at 21:33; Admin Dose 15 GM; Start 10/16/18 at 22:30 Hydroxyzine HCl (Atarax) 25 mg Q6H PRN GTB ITCHING Last administered on 11/03/18at 09:38; Admin Dose 25 MG; Start 10/20/18 at 14:00 Calamine (Calamine Lotion) 1 applic BID PRN TOP itching; Start 10/20/18 at 14:00 Amlodipine Besylate (Norvasc) 5 mg BID GTB Last administered on 11/03/18 09:40; Admin Dose 5 MG; Start 10/20/18 at 21:00 Lansoprazole (Prevacid) 30 mg DAILY@06 GTB Last administered on 11/04/18 05:12; Admin Dose 30 MG; Start 10/21/18 at 06:00 Hydralazine HCl (Apresoline) 25 mg TID GTB Last administered on 11/03/18 13:37; Admin Dose 25 MG; Start 10/21/18 at 21:00 Metoprolol Tartrate (Lopressor) 50 mg BID GTB Last administered on 11/03/18 09:40; Admin Dose 50 MG; Start 10/21/18 at 21:00 Heparin Sodium (Porcine) (Heparin (1000 Units/ml)) 4,000 unit AFTER DIALYSIS CATHETER Last administered on 11/01/18 18:02; Admin Dose 3,200 UNIT; Start 10/21/18 at 19:00 Haloperidol (Haldol) 2 mg Q4H PRN IM AGITATION Last administered on 10/31/18 05:36; Admin Dose 2 MG; Start 10/26/18 at 00:30 Albumin Human 50 ml @ 100 mls/hr WITH DIALYSIS PRN IV SBP<90 Last administered on 10/29/18 12:34; Admin Dose 100 MLS/HR; Start 10/26/18 at 17:00 Sodium Chloride (NS) -To prime the dialy... DIRECTED FOR HD PRN IV SBP<90; Start 10/26/18 at 17:00 Daptomycin 230 mg/ Sodium Chloride 100 ml @ 200 mls/hr Q48H IVPB Last administered on 11/02/18 17:10; Admin Dose 200 MLS/HR; Start 10/29/18 at 16:00 Sodium Chloride (NS) -To prime the dialy... DIRECTED FOR HD PRN IV SBP<90; Start 11/03/18 at 15:30 TONY VENCES Nov 04, 2018 08:55
--- NOTE | 2018-11-04 09:06 | PN ---
DATE: 11/04/2018 SUBJECTIVE: The patient seen, awaiting a G-tube replacement by Dr. Baird as it somewhat malfunction ing and leaking. The patient's H and H now maintaining. No need for transfusion today. The patient still being treated for VRE bacteremia with daptomycin. Wound culture also showed VRE on 10/22/2018 . PHYSICAL EXAMINATION: VITAL SIGNS: Patient is anxious. Temperature 98.6, pulse 88, respiration 18, blood pressure slightl y high this morning 183/74, saturation 98%. GENERAL: The patient is frail, cachectic. HEENT: Temporal wasting and left IJ Perm-A-Cath in place. CARDIOVASCULAR: S1, S2 regular. LUNGS: Clear. ABDOMEN: Soft. EXTREMITIES: No clubbing, cyanosis, or edema. LABORATORY DATA: Today shows a white count of 10, hemoglobin 8.2, hematocrit 24, platelets 188, neut rophils 71%, lymphocytes 13%. Chemistry: Sodium 139, potassium 3.7, chloride 100, bicarbonate 32, B UN 25, creatinine 1.27, glucose 175. Phosphorus slightly low at 1.7. CK is 111. MEDICATIONS: 1. Daptomycin, dose per pharmacy. 2. Haldol p.r.n. 3. Hydralazine 25 t.i.d. 4. Lopressor 50 b.i.d. 5. Heparin as directed. 6. Prevacid 30 mg daily. 7. Norvasc 5 mg b.i.d. 8. Atarax p.r.n. 9. Calamine lotion p.r.n. 10. Colace 100 daily. 11. Folic acid 1 mg daily. 12. Kianna-Roque 1 tab daily. 13. Tradjenta 5 mg daily. 14. Accu-Chek as directed. 15. Hypoglycemia protocol as directed. 16. 325 b.i.d. 17. MiraLax p.r.n. 18. Seroquel 25 b.i.d. 19. Ativan. 20. Senna. 21. Zofran. 22. Tylenol p.r.n. ASSESSMENT AND PLAN: This is an unfortunate 83-year-old [place] female with history of end-stage re nal disease, COPD, vascular dementia, CVA, who presented with hypotension and was found to have line sepsis. 1. Respiratory. Remains stable. 2. Cardiovascular, titrate blood pressure medication up. At times meds are being placed on hold due to dialysis. 3. Infectious disease. Currently being treated for VRE bacteremia and wound infection. Plan to jerri at for [address] Proctor. 4. Malfunctioning G-tube. Awaiting Dr. Baird to change the G-tube. 5. In-stent disease on dialysis per Dr. Stringer 3 times a week. 6. Anemia. Transfuse p.r.n. Hemoglobin and hematocrit now is more stable after Dr. Sagastume sutured t he left IJ site. 7. Dysphagia. Continue G-tube feeding, also has oral feedings for gratification. 8. Psychiatric disorder meant to 1:1 sitter as the patient is a danger to self with history of fall and fractures in the past. Definitely needs to be placed on close monitoring until discharge. 9. Continue anxiolytics p.r.n. 10. Discharge once off antibiotics. 11. Diabetes mellitus. Accu-Chek in the 100s. Continue the same regimen. We will follow. Dictated By: DYLON HULL/MADAN Conf#: [id number] DID#: [id number] CC: DYLON WALLS MD;*EndCC*
[2018-11-04] MEDS ORDERED: DIATR MEGLU/DIATRIZOATE SODIUM 120 ML BTL ONE (09:15)
[2018-11-04] MEDS: DOCUSATE SODIUM 10 MG/ML (10ML CUP) GTB SCH (10:18)
[2018-11-04] MEDS: FERROUS SULFATE 60 MG/ML 5ML CUP GTB SCH ×2 (10:18→21:43)
[2018-11-04] MEDS: SENNA TAB GTB SCH ×2 (10:19→21:43)
[2018-11-04] MEDS: MULTIVIT/CA CARB/B CMPLX/FA TAB GTB SCH (10:19)
[2018-11-04] MEDS: LINAGLIPTIN 5 MG TABLET G-TUBE SCH (10:19)
[2018-11-04] MEDS: FOLIC ACID 1 MG TAB GTB SCH (10:20)
[2018-11-04] MEDS: METOPROLOL 50 MG TAB GTB SCH ×2 (10:20→21:43)
[2018-11-04] MEDS: AMLODIPINE 5 MG TAB GTB SCH ×2 (10:20→21:44)
[2018-11-04] MEDS: QUETIAPINE 25 MG TAB GTB SCH (10:20)
[2018-11-04] MEDS: hydrOXYzine HCL 25 MG TAB GTB PRN (10:20)
[2018-11-04] MEDS: ACETAMINOPHEN 650MG/20.3ML CUP GTB PRN (10:21)
[2018-11-04 14:28] VITALS: BP 104/51; PULSE 61; RESP 18
--- NOTE | 2018-11-04 15:06 | CONS ---
Date/Time of Note Date/Time of Note DATE: 11/04/18 TIME: 15:05 Assessment/Plan Assessment/Plan Hospital Course 1230 Patient is sleeping looks comfortable sitter at bedside, no fevers overnight Indwelling: Left chest permacath Antimicrobials: Daptomycin Physical examination: Chronically ill-appearing elderly woman who is awake, confused, in no distress. Head atraumatic normocephalic. Neck is supple. Chest rise symmetrical breath sounds diminished bases. Heart: S1-S2. Abdomen soft bowel sounds present extremities without edema Assessment: 1. Status post sepsis with VRE bacteremia 2 to infected Pcath 2. Positive urinalysis on admission, urine culture came back negative 3. End-stage renal disease, hemodialysis dependent 4. Dementia 5. Failure to thrive 6. Diabetes 7. Acute on chronic anemia, status post blood transfusion Plan: Patient remains unchanged, completing Daptomycin ==> last dose Nov 06, KUB noted [facility] staff Result Diagram: 11/04/18 0457 11/04/18 0457 Results 24hrs Laboratory Tests Test 11/03/18 18:24 11/03/18 22:18 11/04/18 04:57 11/04/18 09:19 Bedside Glucose 190 117 126 White Blood 10.0 Count Red Blood Count 2.93 L Hemoglobin 8.2 L Hematocrit 24.3 L Mean Corpuscular 82.9 Volume Mean Corpuscular 28.0 L Hemoglobin Mean Corpuscular 33.7 Hemoglobin Mckayla nt Red Cell 16.1 H Distribution Width Platelet Count 188 # Mean Platelet 12.3 H Volume Immature 0.600 H Granulocytes % Neutrophils % 71.2 Lymphocytes % 13.4 L Monocytes % 9.6 Eosinophils % 4.9 Basophils % 0.3 Nucleated Red 0.2 H Blood Cells % Immature 0.060 H Granulocytes # Neutrophils # 7.1 Lymphocytes # 1.3 Monocytes # 1.0 H Eosinophils # 0.5 Basophils # 0.0 Nucleated Red 0.0 Blood Cells # Sodium Level 139 Potassium Level 3.7 Chloride Level 100 Carbon Dioxide 32 H Level Anion Gap 7 Blood Urea 25 #H Nitrogen Creatinine 1.27 #H Est Glomerular Filtrat Rate mL/min Glucose Level 175 Calcium Level 8.7 Phosphorus Level 1.7 L Magnesium Level 2.0 Creatine Kinase 111 Test 11/04/18 12:51 Bedside Glucose 219 Consultation Date/Type/Reason Admit Date/Time Oct 16, 2018 at 18:45 Initial Consult Date Type of Consult ID Exam/Review of Systems Vital Signs Vitals Vital Signs Date Temp Pulse Resp B/P (MAP) Pulse Ox O2 O2 Flow FiO2 Time Delivery Rate 11/04/18 98.3 61 18 104/51 97 14:28 (68) 11/03/18 Room Air 19:00 Intake and Output 11/03/18 11/03/18 11/04/18 1515:00 23:00 07:00 OutputOutput Total 700 ml BalanceBalance -700 ml Medications Medications Current Medications Docusate Sodium (Colace Liquid Cup) 100 mg DAILY GTB Last administered on 11/04/18 10:18; Admin Dose 100 MG; Start 10/17/18 at 09:00 Ferrous Sulfate (Feosol Liquid Cup) 330 mg BID GTB Last administered on 11/04/18 10:18; Admin Dose 330 MG; Start 10/16/18 at 22:00 Folic Acid (Folic Acid) 1 mg DAILY GTB Last administered on 11/04/18 10:20; Admin Dose 1 MG; Start 10/17/18 at 09:00 Insulin Detemir (Levemir) 8 units DAILY@0800 SC Last administered on 10/17/18at 08:40; Admin Dose 8 UNITS; Start 10/17/18 at 08:00; Status Hold Polyethylene Glycol (Miralax) 8.5 gm DAILY PRN GTB CONSTIPATION; Start 10/16/18 at 22:00 Multivit/Ca Carb/ B Cmplx/FA/Prenat (Kianna-Roque) 1 tab DAILY GTB Last administered on 11/04/18 10:19; Admin Dose 1 TAB; Start 10/17/18 at 09:00 Quetiapine Fumarate (Seroquel) 25 mg BID GTB Last administered on 11/04/18 10:20; Admin Dose 25 MG; Start 10/16/18 at 22:00 Linagliptin (Tradjenta) 5 mg DAILY G-TUBE Last administered on 11/04/18 10:19; Admin Dose 5 MG; Start 10/17/18 at 09:00 Diagnostic Test (Pha) (Accu-Chek) 1 ea AC MEALS AND BEDTIME XX Last administered on 11/04/18at 07:00; Admin Dose 1 EA; Start 10/17/18 at 07:00 Lorazepam (Ativan) 1 mg Q8H PRN GTB ANXIETY Last administered on 11/04/18at 05:12; Admin Dose 1 MG; Start 10/16/18 at 22:00 Senna (Senokot) 1 tab BID GTB Last administered on 11/04/18at 10:19; Admin Dose 1 TAB; Start 10/16/18 at 22:00 Ondansetron HCl (Zofran Inj) 4 mg Q6H PRN IV NAUSEA AND/OR VOMITING; Start 10/16/18 at 22:00 Acetaminophen (Tylenol Liquid) 650 mg Q6 PRN GTB PAIN Last administered on 11/04/18at 10:21; Admin Dose 650 MG; Start 10/16/18 at 22:00 Diagnostic Test (Pha) (Accu-Chek) 1 ea 02 XX Last administered on 11/02/18at 02:35; Admin Dose 1 EA; Start 10/17/18 at 02:00 Insulin Aspart (Novolog Insulin Pen) NOVOLOG *MODERATE* ALGORITHM WITH MEALS BEDTIME SC Last administered on 10/17/18at 17:48; Admin Dose 4 UNIT; Start 10/17/18 at 08:00; Status Hold Miscellaneous Information 1 ea NOTE XX ; Start 10/16/18 at 22:30 Glucose (Glutose) 15 gm Q15M PRN PO DECREASED GLUCOSE; Start 10/16/18 at 22:30 Glucose (Glutose) 22.5 gm Q15M PRN PO DECREASED GLUCOSE; Start 10/16/18 at 22:3 0 Dextrose (D50w Syringe) 25 ml Q15M PRN IV DECREASED GLUCOSE; Start 10/16/18 at 22:30 Dextrose (D50w Syringe) 50 ml Q15M PRN IV DECREASED GLUCOSE; Start 10/16/18 at 22:30 Glucagon (Glucagen) 1 mg Q15M PRN IM DECREASED GLUCOSE; Start 10/16/18 at 22:30 Glucose (Glutose) 15 gm Q15M PRN BUCCAL DECREASED GLUCOSE Last administered on 10/17/18at 21:33; Admin Dose 15 GM; Start 10/16/18 at 22:30 Hydroxyzine HCl (Atarax) 25 mg Q6H PRN GTB ITCHING Last administered on 11/04/18at 10:20; Admin Dose 25 MG; Start 10/20/18 at 14:00 Calamine (Calamine Lotion) 1 applic BID PRN TOP itching; Start 10/20/18 at 14:00 Amlodipine Besylate (Norvasc) 5 mg BID GTB Last administered on 11/04/18 10:20; Admin Dose 5 MG; Start 10/20/18 at 21:00 Lansoprazole (Prevacid) 30 mg DAILY@06 GTB Last administered on 11/04/18 05:12; Admin Dose 30 MG; Start 10/21/18 at 06:00 Hydralazine HCl (Apresoline) 25 mg TID GTB Last administered on 11/04/18 10:19; Admin Dose 25 MG; Start 10/21/18 at 21:00 Metoprolol Tartrate (Lopressor) 50 mg BID GTB Last administered on 11/04/18 10:20; Admin Dose 50 MG; Start 10/21/18 at 21:00 Heparin Sodium (Porcine) (Heparin (1000 Units/ml)) 4,000 unit AFTER DIALYSIS CATHETER Last administered on 11/01/18at 18:02; Admin Dose 3,200 UNIT; Start 10/21/18 at 19:00 Haloperidol (Haldol) 2 mg Q4H PRN IM AGITATION Last administered on 10/31/18 05:36; Admin Dose 2 MG; Start 10/26/18 at 00:30 Albumin Human 50 ml @ 100 mls/hr WITH DIALYSIS PRN IV SBP<90 Last administered on 10/29/18at 12:34; Admin Dose 100 MLS/HR; Start 10/26/18 at 17:00 Sodium Chloride (NS) -To prime the dialy... DIRECTED FOR HD PRN IV SBP<90; Start 10/26/18 at 17:00 Daptomycin 230 mg/ Sodium Chloride 100 ml @ 200 mls/hr Q48H IVPB Last administered on 11/02/18at 17:10; Admin Dose 200 MLS/HR; Start 10/29/18 at 16:00 Sodium Chloride (NS) -To prime the dialy... DIRECTED FOR HD PRN IV SBP<90; Start 11/03/18 at 15:30 PHYLICIA HOLCOMB NP Nov 04, 2018 15:06
[2018-11-04] MEDS: DAPTOMYCIN 230 MG in SOD CHLORIDE 0.9% 100 ML IVPB SCH (16:53)
--- NOTE | 2018-11-04 17:23 | CONS ---
Date/Time of Note Date/Time of Note DATE: 11/04/18 TIME: 17:22 Assessment/Plan Assessment/Plan Hospital Course 83 y/o with This is an 83-year-old female with: 1. Hypotension, could be secondary to sepsis as the patient has positive bacteremia/urinary tract infection VRE bactermia. s/p permcath removal and new placement The patient was continued on blood pressure medicines aggressively 2. Altered level of consciousness, likely secondary to metabolic encephalopathy, secondary to low blood pressures. vs Vascular dementia 3. Mild hyponatremia. 4. End-stage renal disease on hemodialysis. 5. Diabetes. 6. Dysphagia, status post G-tube feeding. 7. History of vascular dementia. 8. Hypertension. 9. History of falls. 10. Anemia. 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 S/P REMOVAL now with new permcatth 12 Persistent on and off bleedeing from permcath > s/p suture now stopped Plan - HD tmw - Monitor H/H -on iv dapto per ID - hold bp meds before HD -Appreciate vascular/ID consultation -Renally dose all meds Result Diagram: 11/04/18 0457 11/04/18 0457 Results 24hrs Laboratory Tests Test 11/03/18 18:24 11/03/18 22:18 11/04/18 04:57 11/04/18 09:19 Bedside Glucose 190 117 126 White Blood 10.0 Count Red Blood Count 2.93 L Hemoglobin 8.2 L Hematocrit 24.3 L Mean Corpuscular 82.9 Volume Mean Corpuscular 28.0 L Hemoglobin Mean Corpuscular 33.7 Hemoglobin Mckayla nt Red Cell 16.1 H Distribution Width Platelet Count 188 # Mean Platelet 12.3 H Volume Immature 0.600 H Granulocytes % Neutrophils % 71.2 Lymphocytes % 13.4 L Monocytes % 9.6 Eosinophils % 4.9 Basophils % 0.3 Nucleated Red 0.2 H Blood Cells % Immature 0.060 H Granulocytes # Neutrophils # 7.1 Lymphocytes # 1.3 Monocytes # 1.0 H Eosinophils # 0.5 Basophils # 0.0 Nucleated Red 0.0 Blood Cells # Sodium Level 139 Potassium Level 3.7 Chloride Level 100 Carbon Dioxide 32 H Level Anion Gap 7 Blood Urea 25 #H Nitrogen Creatinine 1.27 #H Est Glomerular Filtrat Rate mL/min Glucose Level 175 Calcium Level 8.7 Phosphorus Level 1.7 L Magnesium Level 2.0 Creatine Kinase 111 Test 11/04/18 12:51 Bedside Glucose 219 Consultation Date/Type/Reason Admit Date/Time Oct 16, 2018 at 18:45 Initial Consult Date 24 HR Interval Summary Free Text/Dictation New G tube placed Pt awake today Exam/Review of Systems Vital Signs Vitals Vital Signs Date Temp Pulse Resp B/P (MAP) Pulse Ox O2 O2 Flow FiO2 Time Delivery Rate 11/04/18 98.3 61 18 104/51 97 14:28 (68) 11/03/18 Room Air 19:00 Intake and Output 11/03/18 11/03/18 11/04/18 1515:00 23:00 07:00 OutputOutput Total 700 ml BalanceBalance -700 ml Exam eft chest Permcath not bleeding Constitutional: CONFUSED Gastrointestinal: soft, other (G tube) LEAKING LEFT Permacath Bruises++ Medications Medications Current Medications Docusate Sodium (Colace Liquid Cup) 100 mg DAILY GTB Last administered on 11/04/18at 10:18; Admin Dose 100 MG; Start 10/17/18 at 09:00 Ferrous Sulfate (Feosol Liquid Cup) 330 mg BID GTB Last administered on 11/04/18at 10:18; Admin Dose 330 MG; Start 10/16/18 at 22:00 Folic Acid (Folic Acid) 1 mg DAILY GTB Last administered on 11/04/18at 10:20; Admin Dose 1 MG; Start 10/17/18 at 09:00 Insulin Detemir (Levemir) 8 units DAILY@0800 SC Last administered on 10/17/18at 08:40; Admin Dose 8 UNITS; Start 10/17/18 at 08:00; Status Hold Polyethylene Glycol (Miralax) 8.5 gm DAILY PRN GTB CONSTIPATION; Start 10/16/18 at 22:00 Multivit/Ca Carb/ B Cmplx/FA/Prenat (Kianna-Roque) 1 tab DAILY GTB Last administered on 11/04/18at 10:19; Admin Dose 1 TAB; Start 10/17/18 at 09:00 Quetiapine Fumarate (Seroquel) 25 mg BID GTB Last administered on 11/04/18at 10:20; Admin Dose 25 MG; Start 10/16/18 at 22:00 Linagliptin (Tradjenta) 5 mg DAILY G-TUBE Last administered on 11/04/18 10:19; Admin Dose 5 MG; Start 10/17/18 at 09:00 Diagnostic Test (Pha) (Accu-Chek) 1 ea AC MEALS AND BEDTIME XX Last administered on 11/04/18at 11:30; Admin Dose 1 EA; Start 10/17/18 at 07:00 Lorazepam (Ativan) 1 mg Q8H PRN GTB ANXIETY Last administered on 11/04/18 05:12; Admin Dose 1 MG; Start 10/16/18 at 22:00 Senna (Senokot) 1 tab BID GTB Last administered on 11/04/18 10:19; Admin Dose 1 TAB; Start 10/16/18 at 22:00 Ondansetron HCl (Zofran Inj) 4 mg Q6H PRN IV NAUSEA AND/OR VOMITING; Start 10/16/18 at 22:00 Acetaminophen (Tylenol Liquid) 650 mg Q6 PRN GTB PAIN Last administered on 11/04/18at 10:21; Admin Dose 650 MG; Start 10/16/18 at 22:00 Diagnostic Test (Pha) (Accu-Chek) 1 ea 02 XX Last administered on 11/02/18at 02:35; Admin Dose 1 EA; Start 10/17/18 at 02:00 Insulin Aspart (Novolog Insulin Pen) NOVOLOG *MODERATE* ALGORITHM WITH MEALS BEDTIME SC Last administered on 10/17/18at 17:48; Admin Dose 4 UNIT; Start 10/17/18 at 08:00; Status Hold Miscellaneous Information 1 ea NOTE XX ; Start 10/16/18 at 22:30 Glucose (Glutose) 15 gm Q15M PRN PO DECREASED GLUCOSE; Start 10/16/18 at 22:30 Glucose (Glutose) 22.5 gm Q15M PRN PO DECREASED GLUCOSE; Start 10/16/18 at 22:30 Dextrose (D50w Syringe) 25 ml Q15M PRN IV DECREASED GLUCOSE; Start 10/16/18 at 22:30 Dextrose (D50w Syringe) 50 ml Q15M PRN IV DECREASED GLUCOSE; Start 10/16/18 at 22:30 Glucagon (Glucagen) 1 mg Q15M PRN IM DECREASED GLUCOSE; Start 10/16/18 at 22:30 Glucose (Glutose) 15 gm Q15M PRN BUCCAL DECREASED GLUCOSE Last administered on 10/17/18 21:33; Admin Dose 15 GM; Start 10/16/18 at 22:30 Hydroxyzine HCl (Atarax) 25 mg Q6H PRN GTB ITCHING Last administered on 11/04/18 10:20; Admin Dose 25 MG; Start 10/20/18 at 14:00 Calamine (Calamine Lotion) 1 applic BID PRN TOP itching; Start 10/20/18 at 14:00 Amlodipine Besylate (Norvasc) 5 mg BID GTB Last administered on 11/04/18 10:20; Admin Dose 5 MG; Start 10/20/18 at 21:00 Lansoprazole (Prevacid) 30 mg DAILY@06 GTB Last administered on 11/04/18 05:12; Admin Dose 30 MG; Start 10/21/18 at 06:00 Hydralazine HCl (Apresoline) 25 mg TID GTB Last administered on 11/04/18 10:19; Admin Dose 25 MG; Start 10/21/18 at 21:00 Metoprolol Tartrate (Lopressor) 50 mg BID GTB Last administered on 11/04/18 10:20; Admin Dose 50 MG; Start 10/21/18 at 21:00 Heparin Sodium (Porcine) (Heparin (1000 Units/ml)) 4,000 unit AFTER DIALYSIS CATHETER Last administered on 11/01/18 18:02; Admin Dose 3,200 UNIT; Start 10/21/18 at 19:00 Haloperidol (Haldol) 2 mg Q4H PRN IM AGITATION Last administered on 10/31/18 05:36; Admin Dose 2 MG; Start 10/26/18 at 00:30 Albumin Human 50 ml @ 100 mls/hr WITH DIALYSIS PRN IV SBP<90 Last administered on 10/29/18 12:34; Admin Dose 100 MLS/HR; Start 10/26/18 at 17:00 Sodium Chloride (NS) -To prime the dialy... DIRECTED FOR HD PRN IV SBP<90; Start 10/26/18 at 17:00 Daptomycin 230 mg/ Sodium Chloride 100 ml @ 200 mls/hr Q48H IVPB Last administered on 11/04/18at 16:53; Admin Dose 200 MLS/HR; Start 10/29/18 at 16:00 Sodium Chloride (NS) -To prime the dialy... DIRECTED FOR HD PRN IV SBP<90; Start 11/03/18 at 15:30 JOSE RAUL ANDREWS MD Nov 04, 2018 17:23
--- NOTE | 2018-11-04 18:56 | NUR ---
EOSS: Patient is in bed resting, asleep. Pt had a few spoons of her dinner, and plenty of liquids. Pt has an 1:1 sitter, side rails up x3, and call light within reach. Pt will have dialysis scheduled for tomorrow per Dr wallace, called [facility] confirmation # [id number]. Pt blood sugar wnl, no coverage needed. Will endorse to next shift.
[2018-11-04 19:26] VITALS: BP 131/58; PULSE 65; RESP 16
[2018-11-05] VITALS (19 sets, daily range): BP systolic 91–152; BP diastolic 34–96; PULSE 72–95; RESP 16–18
[2018-11-05] MEDS: hydrOXYzine HCL 25 MG TAB GTB PRN (00:40)
[2018-11-05] MEDS: QUETIAPINE 25 MG TAB GTB SCH ×3 (00:40→21:18)
[2018-11-05] MEDS: ACCU-CHEK XX SCH ×5 (02:00→21:20)
[2018-11-05] MEDS: LORAZEPAM 1 MG TAB GTB PRN ×2 (03:47→15:26)
--- NOTE | 2018-11-05 05:34 | NUR ---
No event overnight. Slept thru from start of the shift until midnight. Patient is confused and disoriented with paranoia, unable to re-orientate with situation, maintain with 1:1 sitter for safety precautions. Medicated with Ativan & atarax on the shift as needed, helpful. Patient had 2x large loose BMs with 1 medium size formed soft BM with it. Tolerated GT feeding, no leaking, no vomiting occurred. All needs anticipated, fall risks precautions & contact isolation precaution observed.
[2018-11-05] MEDS: LANSOPRAZOLE 30 MG CAP GTB SCH (06:32)
--- NOTE | 2018-11-05 07:30 | PN ---
Date/Time of Note Date/Time of Note DATE: 11/05/18 TIME: 07:29 Assessment/Plan VTE Prophylaxis Risk score (from [facility] [place]0 risk: 8 SCD applied (from [facility] [place]): No SCD contraindicated: patient refusal Pharmacological prophylaxis: NA/contraindicated Pharm contraindication: bleeding Lines/Catheters IV C[facility]ter Type (from [facility] Saline Lock Urinary Cath still in place: No Assessment/Plan Hospital Course 83 yo female 1. Dysphagia, status post G-tube placement. 2. Malfunctioning G-tube. 3. Psychiatric disorder. 4. Hypertension. 5. End-stage renal disease. 6. Anemia. 7. Hypertension, which is optimized. PLAN: 18 bhutanese g tube placed. Return gastric fluid. KUB confirmed placement of G tube Pt examined and plan of care discussed with Dr. Baird Result Diagram: 11/05/18 0610 11/05/18 0610 Results 24hrs Laboratory Tests Test 11/04/18 09:19 11/04/18 12:51 11/04/18 18:25 11/04/18 21:42 Bedside Glucose 126 219 112 124 Test 11/05/18 06:10 White Blood 10.9 H Count Red Blood Count 2.92 L Hemoglobin 8.2 L Hematocrit 24.3 L Mean Corpuscular 83.2 Volume Mean Corpuscular 28.1 L Hemoglobin Mean Corpuscular 33.7 Hemoglobin Mckayla nt Red Cell 16.1 H Distribution Width Platelet Count 220 Mean Platelet 11.9 H Volume Immature 0.600 H Granulocytes % Neutrophils % 72.7 Lymphocytes % 12.6 L Monocytes % 8.7 Eosinophils % 5.1 Basophils % 0.3 Nucleated Red 0.2 H Blood Cells % Immature 0.060 H Granulocytes # Neutrophils # 7.9 H Lymphocytes # 1.4 Monocytes # 0.9 Eosinophils # 0.6 H Basophils # 0.0 Nucleated Red 0.0 Blood Cells # Sodium Level 137 Potassium Level 3.9 Chloride Level 102 Carbon Dioxide 30 Level Anion Gap 5 Blood Urea 53 H Nitrogen Creatinine 2.43 #H Est Glomerular Filtrat Rate mL/min Glucose Level 151 Calcium Level 8.8 Phosphorus Level 2.9 Magnesium Level 2.4 Exam/Review of Systems Vital Signs Vitals Vital Signs Date Temp Pulse Resp B/P (MAP) Pulse Ox O2 O2 Flow FiO2 Time Delivery Rate 11/05/18 97.7 81 16 152/70 99 07:13 (97) 12/26/18 Room Air 19:00 Intake and Output 11/04/18 11/04/18 11/05/18 1515:00 23:00 07:00 IntakeIntake Total 460 ml 120 ml BalanceBalance 460 ml 120 ml Medications Medications Current Medications Docusate Sodium (Colace Liquid Cup) 100 mg DAILY GTB Last administered on 11/04/18 10:18; Admin Dose 100 MG; Start 10/17/18 at 09:00 Ferrous Sulfate (Feosol Liquid Cup) 330 mg BID GTB Last administered on 11/04 21:43; Admin Dose 330 MG; Start 10/16/18 at 22:00 Folic Acid (Folic Acid) 1 mg DAILY GTB Last administered on 11/04/18 10:20; Admin Dose 1 MG; Start 10/17/18 at 09:00 Insulin Detemir (Levemir) 8 units DAILY@0800 SC Last administered on 10/17/18 08:40; Admin Dose 8 UNITS; Start 10/17/18 at 08:00; Status Hold Polyethylene Glycol (Miralax) 8.5 gm DAILY PRN GTB CONSTIPATION; Start 10/16/18 at 22:00 Multivit/Ca Carb/ B Cmplx/FA/Prenat (Kianna-Roque) 1 tab DAILY GTB Last administered on 11/04/18 10:19; Admin Dose 1 TAB; Start 10/17/18 at 09:00 Quetiapine Fumarate (Seroquel) 25 mg BID GTB Last administered on 11/05/18at 00:40; Admin Dose 25 MG; Start 10/16/18 at 22:00 Linagliptin (Tradjenta) 5 mg DAILY G-TUBE Last administered on 11/04/18 10:19; Admin Dose 5 MG; Start 10/17/18 at 09:00 Diagnostic Test (Pha) (Accu-Chek) 1 ea AC MEALS AND BEDTIME XX Last administered on 11/04/18at 18:00; Admin Dose 1 EA; Start 10/17/18 at 07:00 Lorazepam (Ativan) 1 mg Q8H PRN GTB ANXIETY Last administered on 11/05/18 03:47; Admin Dose 1 MG; Start 10/16/18 at 22:00 Senna (Senokot) 1 tab BID GTB Last administered on 11/04/18at 21:43; Admin Dose 1 TAB; Start 10/16/18 at 22:00 Ondansetron HCl (Zofran Inj) 4 mg Q6H PRN IV NAUSEA AND/OR VOMITING; Start 10/16/18 at 22:00 Acetaminophen (Tylenol Liquid) 650 mg Q6 PRN GTB PAIN Last administered on 11/04/18at 10:21; Admin Dose 650 MG; Start 10/16/18 at 22:00 Diagnostic Test (Pha) (Accu-Chek) 1 ea 02 XX Last administered on 11/02/18at 02 :35; Admin Dose 1 EA; Start 10/17/18 at 02:00 Insulin Aspart (Novolog Insulin Pen) NOVOLOG *MODERATE* ALGORITHM WITH MEALS BEDTIME SC Last administered on 10/17/18at 17:48; Admin Dose 4 UNIT; Start 10/17/18 at 08:00; Status Hold Miscellaneous Information 1 ea NOTE XX ; Start 10/16/18 at 22:30 Glucose (Glutose) 15 gm Q15M PRN PO DECREASED GLUCOSE; Start 10/16/18 at 22:30 Glucose (Glutose) 22.5 gm Q15M PRN PO DECREASED GLUCOSE; Start 10/16/18 at 22:30 Dextrose (D50w Syringe) 25 ml Q15M PRN IV DECREASED GLUCOSE; Start 10/16/18 at 22:30 Dextrose (D50w Syringe) 50 ml Q15M PRN IV DECREASED GLUCOSE; Start 10/16/18 at 22:30 Glucagon (Glucagen) 1 mg Q15M PRN IM DECREASED GLUCOSE; Start 10/16/18 at 22:30 Glucose (Glutose) 15 gm Q15M PRN BUCCAL DECREASED GLUCOSE Last administered on 10/17/18at 21:33; Admin Dose 15 GM; Start 10/16/18 at 22:30 Hydroxyzine HCl (Atarax) 25 mg Q6H PRN GTB ITCHING Last administered on 11/05/18at 00:40; Admin Dose 25 MG; Start 10/20/18 at 14:00 Calamine (Calamine Lotion) 1 applic BID PRN TOP itching; Start 10/20/18 at 14:00 Amlodipine Besylate (Norvasc) 5 mg BID GTB Last administered on 11/04/18at 21:44; Admin Dose 5 MG; Start 10/20/18 at 21:00 Lansoprazole (Prevacid) 30 mg DAILY@06 GTB Last administered on 11/05/18 06:32; Admin Dose 30 MG; Start 10/21/18 at 06:00 Hydralazine HCl (Apresoline) 25 mg TID GTB Last administered on 11/04/18 21:44; Admin Dose 25 MG; Start 10/21/18 at 21:00 Metoprolol Tartrate (Lopressor) 50 mg BID GTB Last administered on 11/04/18 21:43; Admin Dose 50 MG; Start 10/21/18 at 21:00 Heparin Sodium (Porcine) (Heparin (1000 Units/ml)) 4,000 unit AFTER DIALYSIS CATHETER Last administered on 11/01/18 18:02; Admin Dose 3,200 UNIT; Start 10/21/18 at 19:00 Haloperidol (Haldol) 2 mg Q4H PRN IM AGITATION Last administered on 10/31/18 05:36; Admin Dose 2 MG; Start 10/26/18 at 00:30 Albumin Human 50 ml @ 100 mls/hr WITH DIALYSIS PRN IV SBP<90 Last administered on 10/29/18 12:34; Admin Dose 100 MLS/HR; Start 10/26/18 at 17:00 Sodium Chloride (NS) -To prime the dialy... DIRECTED FOR HD PRN IV SBP<90; Start 10/26/18 at 17:00 Daptomycin 230 mg/ Sodium Chloride 100 ml @ 200 mls/hr Q48H IVPB Last administered on 11/04/18at 16:53; Admin Dose 200 MLS/HR; Start 10/29/18 at 16:00 Sodium Chloride (NS) -To prime the dialy... DIRECTED FOR HD PRN IV SBP<90; Start 11/03/18 at 15:30 TONY VENCES Nov 05, 2018 07:30
[2018-11-05] MEDS: FOLIC ACID 1 MG TAB GTB SCH (08:31)
[2018-11-05] MEDS: MULTIVIT/CA CARB/B CMPLX/FA TAB GTB SCH (08:31)
[2018-11-05] MEDS: DOCUSATE SODIUM 10 MG/ML (10ML CUP) GTB SCH (08:31)
[2018-11-05] MEDS: FERROUS SULFATE 60 MG/ML 5ML CUP GTB SCH ×2 (08:31→21:20)
[2018-11-05] MEDS: LINAGLIPTIN 5 MG TABLET G-TUBE SCH (08:32)
[2018-11-05] MEDS: AMLODIPINE 5 MG TAB GTB SCH ×2 (08:33→21:19)
[2018-11-05] MEDS: METOPROLOL 50 MG TAB GTB SCH ×2 (08:33→21:19)
[2018-11-05] MEDS: SENNA TAB GTB SCH ×2 (08:33→21:18)
--- NOTE | 2018-11-05 11:04 | CONS ---
Date/Time of Note Date/Time of Note DATE: 11/05/18 TIME: 11:03 Assessment/Plan Assessment/Plan Hospital Course All noted, looks comfortable, no fevers Indwelling: Left chest permacath, PEG Antimicrobials: Daptomycin Physical examination: Chronically ill-appearing elderly woman who is awake, confused, in no distress. Head atraumatic normocephalic. Neck is supple. Chest rise symmetrical breath sounds diminished bases. Heart: S1-S2. Abdomen soft bowel sounds present extremities without edema Assessment: 1. Status post sepsis with VRE bacteremia 2 to infected Pcath 2. Positive urinalysis on admission, urine culture came back negative 3. End-stage renal disease, hemodialysis dependent 4. Dementia 5. Failure to thrive 6. Diabetes 7. Acute on chronic anemia, status post blood transfusion Plan: Patient remains unchanged, completing Daptomycin ==> last dose tomorrow Nov 06, GI rec-s noted [facility] staff Result Diagram: 11/05/18 0610 11/05/18 0610 Results 24hrs Laboratory Tests Test 11/04/18 12:51 11/04/18 18:25 11/04/18 21:42 11/05/18 06:10 Bedside Glucose 219 112 124 White Blood 10.9 H Count Red Blood Count 2.92 L Hemoglobin 8.2 L Hematocrit 24.3 L Mean Corpuscular 83.2 Volume Mean Corpuscular 28.1 L Hemoglobin Mean Corpuscular 33.7 Hemoglobin Mckayla nt Red Cell 16.1 H Distribution Width Platelet Count 220 Mean Platelet 11.9 H Volume Immature 0.600 H Granulocytes % Neutrophils % 72.7 Lymphocytes % 12.6 L Monocytes % 8.7 Eosinophils % 5.1 Basophils % 0.3 Nucleated Red 0.2 H Blood Cells % Immature 0.060 H Granulocytes # Neutrophils # 7.9 H Lymphocytes # 1.4 Monocytes # 0.9 Eosinophils # 0.6 H Basophils # 0.0 Nucleated Red 0.0 Blood Cells # Sodium Level 137 Potassium Level 3.9 Chloride Level 102 Carbon Dioxide 30 Level Anion Gap 5 Blood Urea 53 H Nitrogen Creatinine 2.43 #H Est Glomerular Filtrat Rate mL/min Glucose Level 151 Calcium Level 8.8 Phosphorus Level 2.9 Magnesium Level 2.4 Test 11/05/18 08:00 Bedside Glucose 139 Consultation Date/Type/Reason Admit Date/Time Oct 16, 2018 at 18:45 Initial Consult Date Type of Consult ID Exam/Review of Systems Vital Signs Vitals Vital Signs Date Temp Pulse Resp B/P (MAP) Pulse Ox O2 O2 Flow FiO2 Time Delivery Rate 11/05/18 97.7 81 16 152/70 99 07:13 (97) 11/03/18 Room Air 19:00 Intake and Output 11/04/18 11/04/18 11/05/18 1515:00 23:00 07:00 IntakeIntake Total 460 ml 120 ml BalanceBalance 460 ml 120 ml Medications Medications Current Medications Docusate Sodium (Colace Liquid Cup) 100 mg DAILY GTB Last administered on 11/05/18 08:31; Admin Dose 100 MG; Start 10/17/18 at 09:00 Ferrous Sulfate (Feosol Liquid Cup) 330 mg BID GTB Last administered on 08:31; Admin Dose 330 MG; Start 10/16/18 at 22:00 Folic Acid (Folic Acid) 1 mg DAILY GTB Last administered on 11/05/18 08:31; Admin Dose 1 MG; Start 10/17/18 at 09:00 Insulin Detemir (Levemir) 8 units DAILY@0800 SC Last administered on 10/17/18 08:40; Admin Dose 8 UNITS; Start 10/17/18 at 08:00; Status Hold Polyethylene Glycol (Miralax) 8.5 gm DAILY PRN GTB CONSTIPATION; Start 10/16/18 at 22:00 Multivit/Ca Carb/ B Cmplx/FA/Prenat (Kianna-Roque) 1 tab DAILY GTB Last administered on 11/05/18 08:31; Admin Dose 1 TAB; Start 10/17/18 at 09:00 Quetiapine Fumarate (Seroquel) 25 mg BID GTB Last administered on 11/05/18 08:31; Admin Dose 25 MG; Start 10/16/18 at 22:00 Linagliptin (Tradjenta) 5 mg DAILY G-TUBE Last administered on 11/05/18 08:32; Admin Dose 5 MG; Start 10/17/18 at 09:00 Diagnostic Test (Pha) (Accu-Chek) 1 ea AC MEALS AND BEDTIME XX Last administered on 11/05/18 08:08; Admin Dose 1 EA; Start 10/17/18 at 07:00 Lorazepam (Ativan) 1 mg Q8H PRN GTB ANXIETY Last administered on 11/05/18 03:47; Admin Dose 1 MG; Start 10/16/18 at 22:00 Senna (Senokot) 1 tab BID GTB Last administered on 11/04/18at 21:43; Admin Dose 1 TAB; Start 10/16/18 at 22:00 Ondansetron HCl (Zofran Inj) 4 mg Q6H PRN IV NAUSEA AND/OR VOMITING; Start 10/16/18 at 22:00 Acetaminophen (Tylenol Liquid) 650 mg Q6 PRN GTB PAIN Last administered on 11/04/18at 10:21; Admin Dose 650 MG; Start 10/16/18 at 22:00 Diagnostic Test (Pha) (Accu-Chek) 1 ea 02 XX Last administered on 11/02/18at 02:35; Admin Dose 1 EA; Start 10/17/18 at 02:00 Insulin Aspart (Novolog Insulin Pen) NOVOLOG *MODERATE* ALGORITHM WITH MEALS BEDTIME SC Last administered on 10/17/18at 17:48; Admin Dose 4 UNIT; Start 10/17/18 at 08:00; Status Hold Miscellaneous Information 1 ea NOTE XX ; Start 10/16/18 at 22:30 Glucose (Glutose) 15 gm Q15M PRN PO DECREASED GLUCOSE; Start 10/16/18 at 22:30 Glucose (Glutose) 22.5 gm Q15M PRN PO DECREASED GLUCOSE; Start 10/16/18 at 22:30 Dextrose (D50w Syringe) 25 ml Q15M PRN IV DECREASED GLUCOSE; Start 10/16/18 at 22:30 Dextrose (D50w Syringe) 50 ml Q15M PRN IV DECREASED GLUCOSE; Start 10/16/18 at 22:30 Glucagon (Glucagen) 1 mg Q15M PRN IM DECREASED GLUCOSE; Start 10/16/18 at 22:30 Glucose (Glutose) 15 gm Q15M PRN BUCCAL DECREASED GLUCOSE Last administered on 10/17/18at 21:33; Admin Dose 15 GM; Start 10/16/18 at 22:30 Hydroxyzine HCl (Atarax) 25 mg Q6H PRN GTB ITCHING Last administered on 11/05/18at 00:40; Admin Dose 25 MG; Start 10/20/18 at 14:00 Calamine (Calamine Lotion) 1 applic BID PRN TOP itching; Start 10/20/18 at 14:00 Amlodipine Besylate (Norvasc) 5 mg BID GTB Last administered on 11/04/18 21:44; Admin Dose 5 MG; Start 10/20/18 at 21:00 Lansoprazole (Prevacid) 30 mg DAILY@06 GTB Last administered on 11/05/18 06:32; Admin Dose 30 MG; Start 10/21/18 at 06:00 Hydralazine HCl (Apresoline) 25 mg TID GTB Last administered on 11/04/18 21: 44; Admin Dose 25 MG; Start 10/21/18 at 21:00 Metoprolol Tartrate (Lopressor) 50 mg BID GTB Last administered on 11/04/18 21:43; Admin Dose 50 MG; Start 10/21/18 at 21:00 Heparin Sodium (Porcine) (Heparin (1000 Units/ml)) 4,000 unit AFTER DIALYSIS CATHETER Last administered on 11/01/18 18:02; Admin Dose 3,200 UNIT; Start 10/21/18 at 19:00 Haloperidol (Haldol) 2 mg Q4H PRN IM AGITATION Last administered on 10/31/18 05:36; Admin Dose 2 MG; Start 10/26/18 at 00:30 Albumin Human 50 ml @ 100 mls/hr WITH DIALYSIS PRN IV SBP<90 Last administered on 10/29/18at 12:34; Admin Dose 100 MLS/HR; Start 10/26/18 at 17:00 Sodium Chloride (NS) -To prime the dialy... DIRECTED FOR HD PRN IV SBP<90; Start 10/26/18 at 17:00 Daptomycin 230 mg/ Sodium Chloride 100 ml @ 200 mls/hr Q48H IVPB Last administered on 11/04/18 16:53; Admin Dose 200 MLS/HR; Start 10/29/18 at 16:00 Sodium Chloride (NS) -To prime the dialy... DIRECTED FOR HD PRN IV SBP<90; Start 11/03/18 at 15:30 PHYLICIA HOLCOMB NP Nov 05, 2018 11:04
--- NOTE | 2018-11-05 12:11 | PN ---
DATE: 11/05/2018 SUBJECTIVE: The patient is stable. No events overnight. No fevers or chills. The patient remains markedly confused. OBJECTIVE: VITAL SIGNS: Blood pressure is 152/70, respirations 16, pulse 81, temperature 97.7. HEENT: Head is normocephalic. NECK: Supple. HEART: Regular rate. LUNGS: Show diminished breath sounds at the base. ABDOMEN: Soft, nontender to palpation. No rebound or guarding. EXTREMITIES: Negative for clubbing, cyanosis. No edema. DERMATOLOGIC: No rashes. MUSCULOSKELETAL: No joint effusion. NEUROLOGIC: No change in exam. MEDICATIONS: Have been reviewed. LABORATORY DATA: Have been reviewed. ASSESSMENT AND PLAN: 1. 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 Continue cu rrent antibiotic therapy. Follow up infectious disease. Anticipate another 24 hours of IV antibioti cs. 2. Dysphagia. The patient has been seen by GI, status post G-tube placement. Anticipate continuing tube feeding. 3. Anemia. Monitor hemoglobin and hematocrit levels. 4. End-stage renal disease. Continue hemodialysis per Dr. Stringer. 5. Psychosis, psychiatric disorder. The patient is on 1:1 sitter. Continue to monitor. Continue m edical management. 6. Diabetes. Continue current insulin regimen. 7. Gastrointestinal and deep venous thrombosis prophylaxis. 8. Hypertension. Continue current blood pressure regimen. Dictated By: MIKE ALBERT DO NR/NTS Conf#: [id number] DID#: [id number] CC: MIKEL REDDY MD; DYLON WALLS MD;*End*
--- NOTE | 2018-11-05 13:16 | CONS ---
Date/Time of Note Date/Time of Note DATE: 11/05/18 TIME: 13:15 Assessment/Plan Assessment/Plan Hospital Course 1. End-stage renal disease on hemodialysis. 2. Altered level of consciousness, likely secondary to metabolic encephalopathy, secondary to low blood pressures. vs Vascular dementia, better 3. Mild hyponatremia resolved. 4. Hypotension, resolved. 5. Diabetes. 6. Dysphagia, status post G-tube placement 7. History of vascular dementia. 8. Hypertension. 9. History of falls. 10. Anemia. 11. 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 left hand edema and pain Assessment/Plan - HD today - Monitor H/H -on iv dapto per ID - hold bp meds before HD -Appreciate vascular/ID consultation -Renally dose all meds Result Diagram: 11/05/18 0610 11/05/18 0610 Results 24hrs Laboratory Tests Test 11/04/18 18:25 11/04/18 21:42 11/05/18 06:10 11/05/18 08:00 Bedside Glucose 112 124 139 White Blood 10.9 H Count Red Blood Count 2.92 L Hemoglobin 8.2 L Hematocrit 24.3 L Mean Corpuscular 83.2 Volume Mean Corpuscular 28.1 L Hemoglobin Mean Corpuscular 33.7 Hemoglobin Mckayla nt Red Cell 16.1 H Distribution Width Platelet Count 220 Mean Platelet 11.9 H Volume Immature 0.600 H Granulocytes % Neutrophils % 72.7 Lymphocytes % 12.6 L Monocytes % 8.7 Eosinophils % 5.1 Basophils % 0.3 Nucleated Red 0.2 H Blood Cells % Immature 0.060 H Granulocytes # Neutrophils # 7.9 H Lymphocytes # 1.4 Monocytes # 0.9 Eosinophils # 0.6 H Basophils # 0.0 Nucleated Red 0.0 Blood Cells # Sodium Level 137 Potassium Level 3.9 Chloride Level 102 Carbon Dioxide 30 Level Anion Gap 5 Blood Urea 53 H Nitrogen Creatinine 2.43 #H Est Glomerular Filtrat Rate mL/min Glucose Level 151 Calcium Level 8.8 Phosphorus Level 2.9 Magnesium Level 2.4 Test 11/05/18 12:29 Bedside Glucose 128 Consultation Date/Type/Reason Admit Date/Time Oct 16, 2018 at 18:45 Initial Consult Date 10/16/2018 Type of Consult nephrology Reason for Consultation dr Stringer Exam/Review of Systems Vital Signs Vitals Vital Signs Date Temp Pulse Resp B/P (MAP) Pulse Ox O2 O2 Flow FiO2 Time Delivery Rate 11/05/18 97.7 81 16 152/70 99 07:13 (97) 11/03/18 Room Air 19:00 Intake and Output 11/04/18 11/04/18 11/05/18 1515:00 23:00 07:00 IntakeIntake Total 460 ml 120 ml BalanceBalance 460 ml 120 ml Exam left chest Permcath Neck: supple Gastrointestinal: soft, other (GT) 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: confused Medications Medications Current Medications Docusate Sodium (Colace Liquid Cup) 100 mg DAILY GTB Last administered on 11/05/18 08:31; Admin Dose 100 MG; Start 10/17/18 at 09:00 Ferrous Sulfate (Feosol Liquid Cup) 330 mg BID GTB Last administered on 11/05/18 08:31; Admin Dose 330 MG; Start 10/16/18 at 22:00 Folic Acid (Folic Acid) 1 mg DAILY GTB Last administered on 11/05/18 08:31; Admin Dose 1 MG; Start 10/17/18 at 09:00 Insulin Detemir (Levemir) 8 units DAILY@0800 SC Last administered on 10/17/18 08:40; Admin Dose 8 UNITS; Start 10/17/18 at 08:00; Status Hold Polyethylene Glycol (Miralax) 8.5 gm DAILY PRN GTB CONSTIPATION; Start 10/16/18 at 22:00 Multivit/Ca Carb/ B Cmplx/FA/Prenat (Kianna-Roque) 1 tab DAILY GTB Last administered on 11/05/18 08:31; Admin Dose 1 TAB; Start 10/17/18 at 09:00 Quetiapine Fumarate (Seroquel) 25 mg BID GTB Last administered on 11/05/18 08:31; Admin Dose 25 MG; Start 10/16/18 at 22:00 Linagliptin (Tradjenta) 5 mg DAILY G-TUBE Last administered on 11/05/18 08:32; Admin Dose 5 MG; Start 10/17/18 at 09:00 Diagnostic Test (Pha) (Accu-Chek) 1 ea AC MEALS AND BEDTIME XX Last administered on 11/05/18at 12:27; Admin Dose 1 EA; Start 10/17/18 at 07:00 Lorazepam (Ativan) 1 mg Q8H PRN GTB ANXIETY Last administered on 11/05/18at 03:47; Admin Dose 1 MG; Start 10/16/18 at 22:00 Senna (Senokot) 1 tab BID GTB Last administered on 11/04/18at 21:43; Admin Dose 1 TAB; Start 10/16/18 at 22:00 Ondansetron HCl (Zofran Inj) 4 mg Q6H PRN IV NAUSEA AND/OR VOMITING; Start 10/16/18 at 22:00 Acetaminophen (Tylenol Liquid) 650 mg Q6 PRN GTB PAIN Last administered on 11/04/18at 10:21; Admin Dose 650 MG; Start 10/16/18 at 22:00 Diagnostic Test (Pha) (Accu-Chek) 1 ea 02 XX Last administered on 11/02/18at 02:35; Admin Dose 1 EA; Start 10/17/18 at 02:00 Insulin Aspart (Novolog Insulin Pen) NOVOLOG *MODERATE* ALGORITHM WITH MEALS BEDTIME SC Last administered on 10/17/18at 17:48; Admin Dose 4 UNIT; Start 10/17/18 at 08:00; Status Hold Miscellaneous Information 1 ea NOTE XX ; Start 10/16/18 at 22:30 Glucose (Glutose) 15 gm Q15M PRN PO DECREASED GLUCOSE; Start 10/16/18 at 22:30 Glucose (Glutose) 22.5 gm Q15M PRN PO DECREASED GLUCOSE; Start 10/16/18 at 22:30 Dextrose (D50w Syringe) 25 ml Q15M PRN IV DECREASED GLUCOSE; Start 10/16/18 at 22:30 Dextrose (D50w Syringe) 50 ml Q15M PRN IV DECREASED GLUCOSE; Start 10/16/18 at 22:30 Glucagon (Glucagen) 1 mg Q15M PRN IM DECREASED GLUCOSE; Start 10/16/18 at 22:30 Glucose (Glutose) 15 gm Q15M PRN BUCCAL DECREASED GLUCOSE Last administered on 10/17/18at 21:33; Admin Dose 15 GM; Start 10/16/18 at 22:30 Hydroxyzine HCl (Atarax) 25 mg Q6H PRN GTB ITCHING Last administered on 11/05/18at 00:40; Admin Dose 25 MG; Start 10/20/18 at 14:00 Calamine (Calamine Lotion) 1 applic BID PRN TOP itching; Start 10/20/18 at 14:00 Amlodipine Besylate (Norvasc) 5 mg BID GTB Last administered on 11/04/18at 21:44; Admin Dose 5 MG; Start 10/20/18 at 21:00 Lansoprazole (Prevacid) 30 mg DAILY@06 GTB Last administered on 11/05/18 06:32; Admin Dose 30 MG; Start 10/21/18 at 06:00 Hydralazine HCl (Apresoline) 25 mg TID GTB Last administered on 11/04/18 2 1:44; Admin Dose 25 MG; Start 10/21/18 at 21:00 Metoprolol Tartrate (Lopressor) 50 mg BID GTB Last administered on 11/04/18 21:43; Admin Dose 50 MG; Start 10/21/18 at 21:00 Heparin Sodium (Porcine) (Heparin (1000 Units/ml)) 4,000 unit AFTER DIALYSIS CATHETER Last administered on 11/01/18at 18:02; Admin Dose 3,200 UNIT; Start 10/21/18 at 19:00 Haloperidol (Haldol) 2 mg Q4H PRN IM AGITATION Last administered on 10/31/18 05:36; Admin Dose 2 MG; Start 10/26/18 at 00:30 Albumin Human 50 ml @ 100 mls/hr WITH DIALYSIS PRN IV SBP<90 Last administered on 10/29/18 12:34; Admin Dose 100 MLS/HR; Start 10/26/18 at 17:00 Sodium Chloride (NS) -To prime the dialy... DIRECTED FOR HD PRN IV SBP<90; Start 10/26/18 at 17:00 Daptomycin 230 mg/ Sodium Chloride 100 ml @ 200 mls/hr Q48H IVPB Last administered on 11/04/18 16:53; Admin Dose 200 MLS/HR; Start 10/29/18 at 16:00 Sodium Chloride (NS) -To prime the dialy... DIRECTED FOR HD PRN IV SBP<90; Start 11/03/18 at 15:30 FLAVIO CLAYTON Nov 05, 2018 13:16
--- NOTE | 2018-11-05 13:54 | NUR ---
HD NURSE HERE TO START HD, REPORT GIVEN, PT SLEEPING AND APPEARS COMFORTABLE.
[2018-11-05] MEDS: ACETAMINOPHEN 650MG/20.3ML CUP GTB PRN (14:49)
[2018-11-05] MEDS: HEPARIN 1000 UNITS/ML 10 ML INJ CATHETER SCH (17:36)
--- NOTE | 2018-11-05 18:12 | NUR ---
EOSS: PT STABLE THROUGHOUT SHIFT. CONTINUES TO YELL AND TRY TO PULL OUT LINES. 1:[address] HD DONE, PT TOLERATED WELL. WILL ENDORSE CARE OF PT TO ONCOMING MATCHER OFFBEARER RN.
[2018-11-06] MEDS: LORAZEPAM 1 MG TAB GTB PRN (00:39)
[2018-11-06] MEDS: ACCU-CHEK XX SCH ×5 (02:00→21:00)
[2018-11-06 02:30] VITALS: BP 136/83; PULSE 81; RESP 18
--- NOTE | 2018-11-06 04:15 | NUR ---
PT AWAKE MOST OF THE SHIFT WITH INTERMITTENT SCREAMING AND LOUD CONVERSATION WITH SELF AND CASING SEWER. PT CONFUSED,INTERMITTENTLY TRYING TO PULL HER LINES/PERMA CATHETER. KEPT CASING SEWER. TOLERATED BOLUS GT FEEDING GIVEN. PROVIDED ASSISTANCE. CALL LIGHT WITHIN REACH.
[2018-11-06] MEDS: LANSOPRAZOLE 30 MG CAP GTB SCH (06:45)
--- NOTE | 2018-11-06 07:11 | PN ---
Date/Time of Note Date/Time of Note DATE: 11/06/18 TIME: 07:11 Assessment/Plan VTE Prophylaxis Risk score (from Nsg)>0 risk: 6 SCD applied (from Nsg): Yes Pharmacological prophylaxis: other Lines/Catheters IV Catheter Type (from Nrsg): Saline Lock Urinary Cath still in place: No Assessment/Plan Hospital Course medicine follow up (coverage for Dr Perez) SUBJECTIVE: The patient is stable. No events overnight. No fevers or chills. The patient remains markedly confused. OBJECTIVE: HEENT: Head is normocephalic. NECK: Supple. HEART: Regular rate. LUNGS: Show diminished breath sounds at the base. ABDOMEN: Soft, nontender to palpation. No rebound or guarding. EXTREMITIES: Negative for clubbing, cyanosis. No edema. DERMATOLOGIC: No rashes. MUSCULOSKELETAL: No joint effusion. NEUROLOGIC: No change in exam. MEDICATIONS: Have been reviewed. LABORATORY DATA: Have been reviewed. ASSESSMENT AND PLAN: 1. 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 Continue current antibiotic therapy. Follow up infectious disease. 2. Dysphagia. The patient has been seen by GI, status post G-tube placement. Anticipate continuing tube feeding. 3. Anemia. Monitor hemoglobin and hematocrit levels. 4. End-stage renal disease. Continue hemodialysis per Dr. Stringer. 5. Psychosis, psychiatric disorder. The patient is on 1:1 sitter. Continue to monitor. Continue medical management. 6. Diabetes. Continue current insulin regimen. 7. Gastrointestinal and deep venous thrombosis prophylaxis. 8. Hypertension. Continue current blood pressure regimen. Result Diagram: 11/05/18 0610 11/05/18 0610 Results 24hrs Laboratory Tests Test 11/05/18 08:00 11/05/18 12:29 11/05/18 17:38 11/05/18 21:17 Bedside Glucose 139 128 130 178 Exam/Review of Systems Vital Signs Vitals Vital Signs Date Temp Pulse Resp B/P (MAP) Pulse Ox O2 O2 Flow FiO2 Time Delivery Rate 11/06/18 98.5 81 18 136/83 100 02:30 (100) 11/05/18 Room Air 17:29 Intake and Output 11/05/18 11/05/18 11/06/18 1515:00 23:00 07:00 IntakeIntake Total 250 ml 490 ml 420 ml OutputOutput Total 2400 ml BalanceBalance 250 ml -1910 ml 420 ml Medications Medications Current Medications Docusate Sodium (Colace Liquid Cup) 100 mg DAILY GTB Last administered on 11/05/18 08:31; Admin Dose 100 MG; Start 10/17/18 at 09:00 Ferrous Sulfate (Feosol Liquid Cup) 330 mg BID GTB Last administered on 11/05/18 21:20; Admin Dose 330 MG; Start 10/16/18 at 22:00 Folic Acid (Folic Acid) 1 mg DAILY GTB Last administered on 11/05/18 08:31; Admin Dose 1 MG; Start 10/17/18 at 09:00 Insulin Detemir (Levemir) 8 units DAILY@0800 SC Last administered on 10/17/18 08:40; Admin Dose 8 UNITS; Start 10/17/18 at 08:00; Status Hold Polyethylene Glycol (Miralax) 8.5 gm DAILY PRN GTB CONSTIPATION; Start 10/16/18 at 22:00 Multivit/Ca Carb/ B Cmplx/FA/Prenat (Kianna-Roque) 1 tab DAILY GTB Last administered on 11/05/18 08:31; Admin Dose 1 TAB; Start 10/17/18 at 09:00 Quetiapine Fumarate (Seroquel) 25 mg BID GTB Last administered on 11/05/18 21:18; Admin Dose 25 MG; Start 10/16/18 at 22:00 Linagliptin (Tradjenta) 5 mg DAILY G-TUBE Last administered on 11/05/18 08:32; Admin Dose 5 MG; Start 10/17/18 at 09:00 Diagnostic Test (Pha) (Accu-Chek) 1 ea AC MEALS AND BEDTIME XX Last administered on 11/05/18 21:20; Admin Dose 1 EA; Start 10/17/18 at 07:00 Lorazepam (Ativan) 1 mg Q8H PRN GTB ANXIETY Last administered on 11/06/18 00:39; Admin Dose 1 MG; Start 10/16/18 at 22:00 Senna (Senokot) 1 tab BID GTB Last administered on 11/05/18 21:18; Admin Dose 1 TAB; Start 10/16/18 at 22:00 Ondansetron HCl (Zofran Inj) 4 mg Q6H PRN IV NAUSEA AND/OR VOMITING; Start 10/16/18 at 22:00 Acetaminophen (Tylenol Liquid) 650 mg Q6 PRN GTB PAIN Last administered on 11/05/18at 14:49; Admin Dose 650 MG; Start 10/16/18 at 22:00 Diagnostic Test (Pha) (Accu-Chek) 1 ea 02 XX Last administered on 11/02/18at 02:35; Admin Dose 1 EA; Start 10/17/18 at 02:00 Insulin Aspart (Novolog Insulin Pen) NOVOLOG *MODERATE* ALGORITHM WITH MEALS BEDTIME SC Last administered on 10/17/18at 17:48; Admin Dose 4 UNIT; Start 10/17/18 at 08:00; Status Hold Miscellaneous Information 1 ea NOTE XX ; Start 10/16/18 at 22:30 Glucose (Glutose) 15 gm Q15M PRN PO DECREASED GLUCOSE; Start 10/16/18 at 22:30 Glucose (Glutose) 22.5 gm Q15M PRN PO DECREASED GLUCOSE; Start 10/16/18 at 22:30 Dextrose (D50w Syringe) 25 ml Q15M PRN IV DECREASED GLUCOSE; Start 10/16/18 at 22:30 Dextrose (D50w Syringe) 50 ml Q15M PRN IV DECREASED GLUCOSE; Start 10/16/18 at 22:30 Glucagon (Glucagen) 1 mg Q15M PRN IM DECREASED GLUCOSE; Start 10/16/18 at 22:30 Glucose (Glutose) 15 gm Q15M PRN BUCCAL DECREASED GLUCOSE Last administered on 10/17/18at 21:33; Admin Dose 15 GM; Start 10/16/18 at 22:30 Hydroxyzine HCl (Atarax) 25 mg Q6H PRN GTB ITCHING Last administered on 11/05/18at 00:40; Admin Dose 25 MG; Start 10/20/18 at 14:00 Calamine (Calamine Lotion) 1 applic BID PRN TOP itching; Start 10/20/18 at 14:00 Amlodipine Besylate (Norvasc) 5 mg BID GTB Last administered on 11/05/18at 2 1:19; Admin Dose 5 MG; Start 10/20/18 at 21:00 Lansoprazole (Prevacid) 30 mg DAILY@06 GTB Last administered on 11/06/18at 06:45; Admin Dose 30 MG; Start 10/21/18 at 06:00 Hydralazine HCl (Apresoline) 25 mg TID GTB Last administered on 11/05/18 21:19; Admin Dose 25 MG; Start 10/21/18 at 21:00 Metoprolol Tartrate (Lopressor) 50 mg BID GTB Last administered on 11/05/18 21:19; Admin Dose 50 MG; Start 10/21/18 at 21:00 Heparin Sodium (Porcine) (Heparin (1000 Units/ml)) 4,000 unit AFTER DIALYSIS CATHETER Last administered on 11/05/18 17:36; Admin Dose 4,000 UNIT; Start 10/21/18 at 19:00 Haloperidol (Haldol) 2 mg Q4H PRN IM AGITATION Last administered on 10/31/18 05:36; Admin Dose 2 MG; Start 10/26/18 at 00:30 Albumin Human 50 ml @ 100 mls/hr WITH DIALYSIS PRN IV SBP<90 Last administered on 10/29/18at 12:34; Admin Dose 100 MLS/HR; Start 10/26/18 at 17:00 Sodium Chloride (NS) -To prime the dialy... DIRECTED FOR HD PRN IV SBP<90; Start 10/26/18 at 17:00 Daptomycin 230 mg/ Sodium Chloride 100 ml @ 200 mls/hr Q48H IVPB Last administered on 11/04/18at 16:53; Admin Dose 200 MLS/HR; Start 10/29/18 at 16:00 Sodium Chloride (NS) -To prime the dialy... DIRECTED FOR HD PRN IV SBP<90; Start 11/03/18 at 15:30 JOHNATHAN RUTLEDGE DO Nov 06, 2018 07:11
[2018-11-06 07:16] VITALS: BP 175/74; PULSE 84; RESP 20
[2018-11-06] MEDS: LINAGLIPTIN 5 MG TABLET G-TUBE SCH (08:19)
[2018-11-06] MEDS: SENNA TAB GTB SCH ×2 (08:19→21:00)
[2018-11-06] MEDS: FOLIC ACID 1 MG TAB GTB SCH (08:20)
[2018-11-06] MEDS: AMLODIPINE 5 MG TAB GTB SCH ×2 (08:21→21:47)
[2018-11-06] MEDS: DOCUSATE SODIUM 10 MG/ML (10ML CUP) GTB SCH (08:21)
[2018-11-06] MEDS: QUETIAPINE 25 MG TAB GTB SCH ×2 (08:21→21:49)
[2018-11-06] MEDS: FERROUS SULFATE 60 MG/ML 5ML CUP GTB SCH ×2 (08:21→21:49)
[2018-11-06] MEDS: MULTIVIT/CA CARB/B CMPLX/FA TAB GTB SCH (08:21)
[2018-11-06] MEDS: METOPROLOL 50 MG TAB GTB SCH ×2 (08:22→21:47)
[2018-11-06] MEDS: ACETAMINOPHEN 650MG/20.3ML CUP GTB PRN ×2 (08:34→16:39)
--- NOTE | 2018-11-06 12:06 | NUR ---
11/06/18 . THIS POURED WALL FOREMAN PLACED A CALL TO INTAKE FOR [facility] - [phone] , SPOKE TO PAYAL MADE AWARE AND STATED WILL HAVE TO CHECK WITH THEIR OFFICE IF AUTH HAS BEEN OBTAINED AND WILL INFORMED THIS RN BRITTA .
--- NOTE | 2018-11-06 12:35 | NUR ---
11/06/18 . AF. PATIENT PRIMARY RN ( BO Soler ) UPDATED OF THE BED STATUS @ [facility] .
--- NOTE | 2018-11-06 12:58 | NUR ---
11/06/18 . AF. FOLLOW CALL MADE @ [facility] , SPOKE TO INTAKE ( PAYAL ) INFORMED THIS RN CM THAT THEY ARE UNABLE TO ACCEPT PT. TODAY , SINCE SNF WONT BE ABLE TO ARRANGE TRANSPORTATION FOR OUT PT. DIALYSIS . PER BEDSIDE RN , DIALYSIS DAYS ARE . [facility] ASSURED THIS DISC INSPECTOR THAT SHE WILL ENDORSE TO ADMISSION ON THURSDAY TO ARRANGE TRANSPORTATION FOR OUT . PT. DIALYSIS .
[2018-11-06 14:00] VITALS: BP 121/60; PULSE 75; RESP 18
[2018-11-06] MEDS ORDERED: SOD CHLORIDE 0.9% 250 ML IV ONE (14:00)
--- NOTE | 2018-11-06 14:53 | CONS ---
Date/Time of Note Date/Time of Note DATE: 11/06/18 TIME: 14:51 Assessment/Plan Assessment/Plan Hospital Course 1. End-stage renal disease on hemodialysis. 2. Altered level of consciousness, likely secondary to metabolic encephalopathy, secondary to low blood pressures. vs Vascular dementia, better 3. Mild hyponatremia resolved. 4. Hypotension, resolved. 5. Diabetes. 6. Dysphagia, status post G-tube placement 7. History of vascular dementia. 8. Hypertension. 9. History of falls. 10. Anemia. 11. VRE bacteremia FROM PERMACATH S/P REMOVAL, now with new Permcath 12. left hand edema and pain 13. Hypotension Assessment/Plan - HD today -today is last day for a/b therapy -pt was given bolus -hold BP meds - Monitor H/H -on iv dapto per ID - hold bp meds before HD -Appreciate vascular/ID consultation -Renally dose all meds Result Diagram: 11/05/18 0610 11/05/18 0610 Results 24hrs Laboratory Tests Test 11/05/18 17:38 11/05/18 21:17 11/06/18 07:50 11/06/18 12:26 Bedside Glucose 130 178 121 151 Consultation Date/Type/Reason Admit Date/Time Oct 16, 2018 at 18:45 Initial Consult Date 10/16/2018 Type of Consult nephrology Reason for Consultation dr Stringer 24 HR Interval Summary Free Text/Dictation hypotension Exam/Review of Systems Vital Signs Vitals Vital Signs Date Temp Pulse Resp B/P (MAP) Pulse Ox O2 O2 Flow FiO2 Time Delivery Rate 11/06/18 98.9 84 20 175/74 97 07:16 (107) 11/05/18 Room Air 17:29 Intake and Output 11/05/18 11/05/18 11/06/18 1515:00 23:00 07:00 IntakeIntake Total 250 ml 490 ml 420 ml OutputOutput Total 2400 ml BalanceBalance 250 ml -1910 ml 420 ml Exam left chest Permcath Constitutional: alert Psych: no complaints Head: normocephalic Neck: supple Respiratory: diminished breath sounds Cardiovascular: regular rate and rhythm Gastrointestinal: soft, other (GT) Musculoskeletal: muscle weakness 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: confused Medications Medications Current Medications Docusate Sodium (Colace Liquid Cup) 100 mg DAILY GTB Last administered on 11/06/18at 08:21; Admin Dose 100 MG; Start 10/17/18 at 09:00 Ferrous Sulfate (Feosol Liquid Cup) 330 mg BID GTB Last administered on 8at 08:21; Admin Dose 330 MG; Start 10/16/18 at 22:00 Folic Acid (Folic Acid) 1 mg DAILY GTB Last administered on 11/06/18 08:20; Admin Dose 1 MG; Start 10/17/18 at 09:00 Insulin Detemir (Levemir) 8 units DAILY@0800 SC Last administered on 10/17/18 08:40; Admin Dose 8 UNITS; Start 10/17/18 at 08:00; Status Hold Polyethylene Glycol (Miralax) 8.5 gm DAILY PRN GTB CONSTIPATION; Start 10/16/18 at 22:00 Multivit/Ca Carb/ B Cmplx/FA/Prenat (Kianna-Roque) 1 tab DAILY GTB Last administered on 11/06/18 08:21; Admin Dose 1 TAB; Start 10/17/18 at 09:00 Quetiapine Fumarate (Seroquel) 25 mg BID GTB Last administered on 11/06/18 08:21; Admin Dose 25 MG; Start 10/16/18 at 22:00 Linagliptin (Tradjenta) 5 mg DAILY G-TUBE Last administered on 11/06/18 08:19; Admin Dose 5 MG; Start 10/17/18 at 09:00 Diagnostic Test (Pha) (Accu-Chek) 1 ea AC MEALS AND BEDTIME XX Last administered on 11/06/18 12:25; Admin Dose 1 EA; Start 10/17/18 at 07:00 Lorazepam (Ativan) 1 mg Q8H PRN GTB ANXIETY Last administered on 11/06/18 00:39; Admin Dose 1 MG; Start 10/16/18 at 22:00 Senna (Senokot) 1 tab BID GTB Last administered on 11/06/18 08:19; Admin Dose 1 TAB; Start 10/16/18 at 22:00 Ondansetron HCl (Zofran Inj) 4 mg Q6H PRN IV NAUSEA AND/OR VOMITING; Start 10/16/18 at 22:00 Acetaminophen (Tylenol Liquid) 650 mg Q6 PRN GTB PAIN Last administered on 12/29/18at 08:34; Admin Dose 650 MG; Start 10/16/18 at 22:00 Diagnostic Test (Pha) (Accu-Chek) 1 ea 02 XX Last administered on 11/02/18at 02:35; Admin Dose 1 EA; Start 10/17/18 at 02:00 Insulin Aspart (Novolog Insulin Pen) NOVOLOG *MODERATE* ALGORITHM WITH MEALS BEDTIME SC Last administered on 10/17/18at 17:48; Admin Dose 4 UNIT; Start at 08:00; Status Hold Miscellaneous Information 1 ea NOTE XX ; Start 10/16/18 at 22:30 Glucose (Glutose) 15 gm Q15M PRN PO DECREASED GLUCOSE; Start 10/16/18 at 22:30 Glucose (Glutose) 22.5 gm Q15M PRN PO DECREASED GLUCOSE; Start 10/16/18 at 22:30 Dextrose (D50w Syringe) 25 ml Q15M PRN IV DECREASED GLUCOSE; Start 10/16/18 at 22:30 Dextrose (D50w Syringe) 50 ml Q15M PRN IV DECREASED GLUCOSE; Start 10/16/18 at 22:30 Glucagon (Glucagen) 1 mg Q15M PRN IM DECREASED GLUCOSE; Start 10/16/18 at 22:30 Glucose (Glutose) 15 gm Q15M PRN BUCCAL DECREASED GLUCOSE Last administered on 10/17/18at 21:33; Admin Dose 15 GM; Start 10/16/18 at 22:30 Hydroxyzine HCl (Atarax) 25 mg Q6H PRN GTB ITCHING Last administered on 11/05/18at 00:40; Admin Dose 25 MG; Start 10/20/18 at 14:00 Calamine (Calamine Lotion) 1 applic BID PRN TOP itching; Start 10/20/18 at 14:00 Amlodipine Besylate (Norvasc) 5 mg BID GTB Last administered on 11/06/18at 08:21; Admin Dose 5 MG; Start 10/20/18 at 21:00 Lansoprazole (Prevacid) 30 mg DAILY@06 GTB Last administered on 11/06/18at 06:45; Admin Dose 30 MG; Start 10/21/18 at 06:00 Hydralazine HCl (Apresoline) 25 mg TID GTB Last administered on 11/06/18at 08:21; Admin Dose 25 MG; Start 10/21/18 at 21:00 Metoprolol Tartrate (Lopressor) 50 mg BID GTB Last administered on 11/06/18 08:22; Admin Dose 50 MG; Start 10/21/18 at 21:00 Heparin Sodium (Porcine) (Heparin (1000 Units/ml)) 4,000 unit AFTER DIALYSIS CATHETER Last administered on 11/05/18 17:36; Admin Dose 4,000 UNIT; Start 10/21/18 at 19:00 Haloperidol (Haldol) 2 mg Q4H PRN IM AGITATION Last administered on 10/31/18 05:36; Admin Dose 2 MG; Start 10/26/18 at 00:30 Albumin Human 50 ml @ 100 mls/hr WITH DIALYSIS PRN IV SBP<90 Last administered on 10/29/18 12:34; Admin Dose 100 MLS/HR; Start 10/26/18 at 17:00 Sodium Chloride (NS) -To prime the dialy... DIRECTED FOR HD PRN IV SBP<90; Start 10/26/18 at 17:00 Daptomycin 230 mg/ Sodium Chloride 100 ml @ 200 mls/hr Q48H IVPB Last administered on 11/04/18at 16:53; Admin Dose 200 MLS/HR; Start 10/29/18 at 16:00 Sodium Chloride (NS) -To prime the dialy... DIRECTED FOR HD PRN IV SBP<90; Start 11/03/18 at 15:30 Sodium Chloride 250 ml @ 250 mls/hr Q1H ONCE IV Last administered on 11/06/18at 14:37; Admin Dose 250 MLS/HR; Start 11/06/18 at 14:00; Stop 11/06/18 at 14:59 FLAVIO CLAYTON Nov 06, 2018 14:53
[2018-11-06] MEDS: DAPTOMYCIN 230 MG in SOD CHLORIDE 0.9% 100 ML IVPB SCH (15:06)
--- NOTE | 2018-11-06 18:32 | NUR ---
EOSS: PT WITH 1:1 SITTER AT ALL TIMES, FREQUENTLY YELLING, TRYING TO PULL OUT LINES. HAD 2 LARGE BM'S TODAY AND 2 SM BM'S. PT KEPT CLEAN AND DRY. HOURLY ROUNDING COMPLETED, ALL DUE MEDS GIVEN. PT WITH ONE EPISODE OF LOW BP, 250ML NS BOLUS GIVEN PER MD ORDER. BP WNL AFTER BOLUS. PT MEDICATED FOR PAIN WITH TYLENOL X2. WILL ENDORSE CARE OF PT TO ONCOMING TUBE WASHER RN.
[2018-11-06 19:24] VITALS: BP 140/64; PULSE 74; RESP 18
[2018-11-06 22:00] VITALS: BP 154/63; RESP 18
[2018-11-07 02:00] VITALS: BP 120/56; PULSE 77; RESP 18
[2018-11-07] MEDS: ACCU-CHEK XX SCH ×5 (02:00→20:20)
[2018-11-07] MEDS: LANSOPRAZOLE 30 MG CAP GTB SCH (05:53)
--- NOTE | 2018-11-07 06:27 | NUR ---
Shift Summary Patient did not sleep much during shift. Patient refused morning Prevacid, but received all other due medications during shift. Patient is incontinent and voided several times during shift. Patient kept calm by 1:1 sitter. wound care provided. Will endorse care to next shift.
[2018-11-07 07:52] VITALS: BP 139/74; PULSE 88; RESP 16
[2018-11-07] MEDS: SENNA TAB GTB SCH ×2 (09:13→20:19)
[2018-11-07] MEDS: QUETIAPINE 25 MG TAB GTB SCH ×2 (09:13→20:19)
[2018-11-07] MEDS: MULTIVIT/CA CARB/B CMPLX/FA TAB GTB SCH (09:13)
[2018-11-07] MEDS: LINAGLIPTIN 5 MG TABLET G-TUBE SCH (09:13)
[2018-11-07] MEDS: FOLIC ACID 1 MG TAB GTB SCH (09:13)
[2018-11-07] MEDS: hydrOXYzine HCL 25 MG TAB GTB PRN (09:14)
[2018-11-07] MEDS: FERROUS SULFATE 60 MG/ML 5ML CUP GTB SCH ×2 (09:16→20:18)
[2018-11-07] MEDS: DOCUSATE SODIUM 10 MG/ML (10ML CUP) GTB SCH (09:51)
[2018-11-07] MEDS: AMLODIPINE 5 MG TAB GTB SCH ×2 (09:51→20:19)
[2018-11-07] MEDS: METOPROLOL 50 MG TAB GTB SCH ×2 (09:52→20:19)
--- NOTE | 2018-11-07 11:02 | CONS ---
Date/Time of Note Date/Time of Note DATE: 11/07/18 TIME: 11:01 Assessment/Plan Assessment/Plan Hospital Course 83 yo female 1. Dysphagia, status post G-tube placement. 2. Malfunctioning G-tube. 3. Psychiatric disorder. 4. Hypertension. 5. End-stage renal disease. 6. Anemia. 7. Hypertension, which is optimized. Plan: Assessment/Plan 3 yo female 1. Dysphagia, status post G-tube placement. 2. Malfunctioning G-tube. 3. Psychiatric disorder. 4. Hypertension. 5. End-stage renal disease. 6. Anemia. 7. Hypertension, which is optimized. PLAN: 20 [place] g tube placed. Patient is tolerating feeding no high residual Result Diagram: 11/05/18 0610 11/05/18 0610 Results 24hrs Laboratory Tests Test 11/06/18 12:26 11/06/18 17:34 11/06/18 21:40 11/07/18 08:01 Bedside Glucose 151 170 125 147 Consultation Date/Type/Reason Admit Date/Time Oct 16, 2018 at 18:45 Initial Consult Date 24 HR Interval Summary Free Text/Dictation No complaints patient is tolerating feeding Exam/Review of Systems Vital Signs Vitals Vital Signs Date Temp Pulse Resp B/P (MAP) Pulse Ox O2 O2 Flow FiO2 Time Delivery Rate 11/07/18 98.6 88 16 139/74 98 Room Air 07:52 (95) Intake and Output 11/06/18 11/06/18 11/07/18 1515:00 23:00 07:00 IntakeIntake Total 250 ml 600 ml BalanceBalance 250 ml 600 ml Exam Constitutional: alert, oriented, well developed Psych: no complaints, nl mood/affect Head: normocephalic, atraumatic Eyes: nl conjunctiva, EOMI, nl lids, nl sclera, PERRL ENMT: nl external ears & nose, nl lips & teeth, nl nasal mucosa & septum Neck: supple, non-tender Respiratory: clear to auscultation, normal air movement Cardiovascular: regular rate and rhythm, nl pulses Gastrointestinal: soft, nl liver, spleen, non-tender Musculoskeletal: nl extremities to inspection, nl gait and stance Extremities: normal pulses 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: GUM REMOVER II-XII intact, nl mental status, nl speech, nl strength Skin: nl turgor; No rash or lesions Lymph: nl lymph nodes Medications Medications Current Medications Docusate Sodium (Colace Liquid Cup) 100 mg DAILY GTB Last administered on 11/07/18 09:51; Admin Dose 100 MG; Start 10/17/18 at 09:00 Ferrous Sulfate (Feosol Liquid Cup) 330 mg BID GTB Last administered on 11/07/18 09:16; Admin Dose 330 MG; Start 10/16/18 at 22:00 Folic Acid (Folic Acid) 1 mg DAILY GTB Last administered on 11/07/18 09:13; Admin Dose 1 MG; Start 10/17/18 at 09:00 Insulin Detemir (Levemir) 8 units DAILY@0800 SC Last administered on 10/17/18 08:40; Admin Dose 8 UNITS; Start 10/17/18 at 08:00; Status Hold Polyethylene Glycol (Miralax) 8.5 gm DAILY PRN GTB CONSTIPATION; Start 10/16/18 at 22:00 Multivit/Ca Carb/ B Cmplx/FA/Prenat (Kianna-Roque) 1 tab DAILY GTB Last administered on 11/07/18 09:13; Admin Dose 1 TAB; Start 10/17/18 at 09:00 Quetiapine Fumarate (Seroquel) 25 mg BID GTB Last administered on 11/07/18 09:13; Admin Dose 25 MG; Start 10/16/18 at 22:00 Linagliptin (Tradjenta) 5 mg DAILY G-TUBE Last administered on 11/07/18 09:13; Admin Dose 5 MG; Start 10/17/18 at 09:00 Diagnostic Test (Pha) (Accu-Chek) 1 ea AC MEALS AND BEDTIME XX Last administered on 11/07/18 07:00; Admin Dose 1 EA; Start 10/17/18 at 07:00 Lorazepam (Ativan) 1 mg Q8H PRN GTB ANXIETY Last administered on 11/06/18 00:39; Admin Dose 1 MG; Start 10/16/18 at 22:00 Senna (Senokot) 1 tab BID GTB Last administered on 11/07/18 09:13; Admin Dose 1 TAB; Start 10/16/18 at 22:00 Ondansetron HCl (Zofran Inj) 4 mg Q6H PRN IV NAUSEA AND/OR VOMITING; Start 10/16/18 at 22:00 Acetaminophen (Tylenol Liquid) 650 mg Q6 PRN GTB PAIN Last administered on 11/06/18at 16:39; Admin Dose 650 MG; Start 10/16/18 at 22:00 Diagnostic Test (Pha) (Accu-Chek) 1 ea 02 XX Last administered on 11/02/18at 02:35; Admin Dose 1 EA; Start 10/17/18 at 02:00 Insulin Aspart (Novolog Insulin Pen) NOVOLOG *MODERATE* ALGORITHM WITH MEALS BEDTIME SC Last administered on 10/17/18at 17:48; Admin Dose 4 UNIT; Start 10/17/18 at 08:00; Status Hold Miscellaneous Information 1 ea NOTE XX ; Start 10/16/18 at 22:30 Glucose (Glutose) 15 gm Q15M PRN PO DECREASED GLUCOSE; Start 10/16/18 at 22:30 Glucose (Glutose) 22.5 gm Q15M PRN PO DECREASED GLUCOSE; Start 10/16/18 at 22:30 Dextrose (D50w Syringe) 25 ml Q15M PRN IV DECREASED GLUCOSE; Start 10/16/18 at 22:30 Dextrose (D50w Syringe) 50 ml Q15M PRN IV DECREASED GLUCOSE; Start 10/16/18 at 22:30 Glucagon (Glucagen) 1 mg Q15M PRN IM DECREASED GLUCOSE; Start 10/16/18 at 22:30 Glucose (Glutose) 15 gm Q15M PRN BUCCAL DECREASED GLUCOSE Last administered on 10/17/18at 21:33; Admin Dose 15 GM; Start 10/16/18 at 22:30 Hydroxyzine HCl (Atarax) 25 mg Q6H PRN GTB ITCHING Last administered on 11/07/18at 09:14; Admin Dose 25 MG; Start 10/20/18 at 14:00 Calamine (Calamine Lotion) 1 applic BID PRN TOP itching; Start 10/20/18 at 14:00 Amlodipine Besylate (Norvasc) 5 mg BID GTB Last administered on 11/07/18at 09:51; Admin Dose 5 MG; Start 10/20/18 at 21:00 Lansoprazole (Prevacid) 30 mg DAILY@06 GTB Last administered on 11/06/18at 06:45; Admin Dose 30 MG; Start 10/21/18 at 06:00 Hydralazine HCl (Apresoline) 25 mg TID GTB Last administered on 11/07/18 09:53; Admin Dose 25 MG; Start 10/21/18 at 21:00 Metoprolol Tartrate (Lopressor) 50 mg BID GTB Last administered on 11/07/18 09:52; Admin Dose 50 MG; Start 10/21/18 at 21:00 Heparin Sodium (Porcine) (Heparin (1000 Units/ml)) 4,000 unit AFTER DIALYSIS CATHETER Last administered on 11/05/18 17:36; Admin Dose 4,000 UNIT; Start 10/21/18 at 19:00 Haloperidol (Haldol) 2 mg Q4H PRN IM AGITATION Last administered on 10/31/18 05:36; Admin Dose 2 MG; Start 10/26/18 at 00:30 Albumin Human 50 ml @ 100 mls/hr WITH DIALYSIS PRN IV SBP<90 Last administered on 10/29/18at 12:34; Admin Dose 100 MLS/HR; Start 10/26/18 at 17:00 Sodium Chloride (NS) -To prime the dialy... DIRECTED FOR HD PRN IV SBP<90; Start 10/26/18 at 17:00 Daptomycin 230 mg/ Sodium Chloride 100 ml @ 200 mls/hr Q48H IVPB Last administered on 11/06/18at 15:06; Admin Dose 200 MLS/HR; Start 10/29/18 at 16:00 Sodium Chloride (NS) -To prime the dialy... DIRECTED FOR HD PRN IV SBP<90; Start 11/03/18 at 15:30 CHRISS WELCH MD Nov 07, 2018 11:02
[2018-11-07 14:09] VITALS: BP 128/59; PULSE 73; RESP 16
--- NOTE | 2018-11-07 18:13 | CONS ---
Date/Time of Note Date/Time of Note DATE: 11/07/18 TIME: 18:12 Assessment/Plan Assessment/Plan Hospital Course 1. SEPSIS 2. s/p ams 3. Mild hyponatremia. 4. End-stage renal disease on hemodialysis. 5. Diabetes. 6. hx hip fracture 7. History of vascular dementia. 8. Hypertension. 9. History of falls. 10. Anemia. 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 plan hd am Result Diagram: 11/05/18 0610 11/05/18 0610 Results 24hrs Laboratory Tests Test 11/06/18 21:40 11/07/18 08:01 11/07/18 14:17 11/07/18 17:41 Bedside Glucose 125 147 100 227 H Consultation Date/Type/Reason Admit Date/Time Oct 16, 2018 at 18:45 Initial Consult Date RENAL no bleeding from cath site no sob no distress 24 HR Interval Summary Constitutional: no complaints Exam/Review of Systems Vital Signs Vitals Vital Signs Date Temp Pulse Resp B/P (MAP) Pulse Ox O2 O2 Flow FiO2 Time Delivery Rate 11/07/18 98.1 73 16 128/59 96 Room Air 14:09 (82) Intake and Output 11/06/18 11/06/18 11/07/18 1515:00 23:00 07:00 IntakeIntake Total 250 ml 600 ml BalanceBalance 250 ml 600 ml Exam Respiratory: clear to auscultation Cardiovascular: regular rate and rhythm Gastrointestinal: soft, bowel sounds (+) Extremities: No edema Medications Medications Current Medications Docusate Sodium (Colace Liquid Cup) 100 mg DAILY GTB Last administered on 11/07/18at 09:51; Admin Dose 100 MG; Start 10/17/18 at 09:00 Ferrous Sulfate (Feosol Liquid Cup) 330 mg BID GTB Last administered on 11/07/18at 09:16; Admin Dose 330 MG; Start 10/16/18 at 22:00 Folic Acid (Folic Acid) 1 mg DAILY GTB Last administered on 11/07/18at 09:13; Admin Dose 1 MG; Start 10/17/18 at 09:00 Insulin Detemir (Levemir) 8 units DAILY@0800 SC Last administered on 10/17/18at 08:40; Admin Dose 8 UNITS; Start 10/17/18 at 08:00; Status Hold Polyethylene Glycol (Miralax) 8.5 gm DAILY PRN GTB CONSTIPATION; Start 10/16/18 at 22:00 Multivit/Ca Carb/ B Cmplx/FA/Prenat (Kianna-Roque) 1 tab DAILY GTB Last administered on 11/07/18 09:13; Admin Dose 1 TAB; Start 10/17/18 at 09:00 Quetiapine Fumarate (Seroquel) 25 mg BID GTB Last administered on 11/07/18 09:13; Admin Dose 25 MG; Start 10/16/18 at 22:00 Linagliptin (Tradjenta) 5 mg DAILY G-TUBE Last administered on 11/07/18 09:13; Admin Dose 5 MG; Start 10/17/18 at 09:00 Diagnostic Test (Pha) (Accu-Chek) 1 ea AC MEALS AND BEDTIME XX Last a dministered on 11/07/18 17:44; Admin Dose 1 EA; Start 10/17/18 at 07:00 Lorazepam (Ativan) 1 mg Q8H PRN GTB ANXIETY Last administered on 11/06/18 00:39; Admin Dose 1 MG; Start 10/16/18 at 22:00 Senna (Senokot) 1 tab BID GTB Last administered on 11/07/18 09:13; Admin Dose 1 TAB; Start 10/16/18 at 22:00 Ondansetron HCl (Zofran Inj) 4 mg Q6H PRN IV NAUSEA AND/OR VOMITING; Start 10/16/18 at 22:00 Acetaminophen (Tylenol Liquid) 650 mg Q6 PRN GTB PAIN Last administered on 11/06/18 16:39; Admin Dose 650 MG; Start 10/16/18 at 22:00 Diagnostic Test (Pha) (Accu-Chek) 1 ea 02 XX Last administered on 11/02/18 02:35; Admin Dose 1 EA; Start 10/17/18 at 02:00 Insulin Aspart (Novolog Insulin Pen) NOVOLOG *MODERATE* ALGORITHM WITH MEALS BEDTIME SC Last administered on 10/17/18 17:48; Admin Dose 4 UNIT; Start 10/17/18 at 08:00; Status Hold Miscellaneous Information 1 ea NOTE XX ; Start 10/16/18 at 22:30 Glucose (Glutose) 15 gm Q15M PRN PO DECREASED GLUCOSE; Start 10/16/18 at 22:30 Glucose (Glutose) 22.5 gm Q15M PRN PO DECREASED GLUCOSE; Start 10/16/18 at 22:30 Dextrose (D50w Syringe) 25 ml Q15M PRN IV DECREASED GLUCOSE; Start 10/16/18 at 22:30 Dextrose (D50w Syringe) 50 ml Q15M PRN IV DECREASED GLUCOSE; Start 10/16/18 at 22:30 Glucagon (Glucagen) 1 mg Q15M PRN IM DECREASED GLUCOSE; Start 10/16/18 at 22:30 Glucose (Glutose) 15 gm Q15M PRN BUCCAL DECREASED GLUCOSE Last administered on 10/17/18at 21:33; Admin Dose 15 GM; Start 10/16/18 at 22:30 Hydroxyzine HCl (Atarax) 25 mg Q6H PRN GTB ITCHING Last administered on 11/07/18at 09:14; Admin Dose 25 MG; Start 10/20/18 at 14:00 Calamine (Calamine Lotion) 1 applic BID PRN TOP itching; Start 10/20/18 at 14:00 Amlodipine Besylate (Norvasc) 5 mg BID GTB Last administered on 11/07/18at 09:51; Admin Dose 5 MG; Start 10/20/18 at 21:00 Lansoprazole (Prevacid) 30 mg DAILY@06 GTB Last administered on 11/06/18at 06:45; Admin Dose 30 MG; Start 10/21/18 at 06:00 Hydralazine HCl (Apresoline) 25 mg TID GTB Last administered on 11/07/18at 14:37; Admin Dose 25 MG; Start 10/21/18 at 21:00 Metoprolol Tartrate (Lopressor) 50 mg BID GTB Last administered on 11/07/18at 09:52; Admin Dose 50 MG; Start 10/21/18 at 21:00 Heparin Sodium (Porcine) (Heparin (1000 Units/ml)) 4,000 unit AFTER DIALYSIS CATHETER Last administered on 11/05/18at 17:36; Admin Dose 4,000 UNIT; Start 10/21/18 at 19:00 Haloperidol (Haldol) 2 mg Q4H PRN IM AGITATION Last administered on 10/31/18at 05:36; Admin Dose 2 MG; Start 10/26/18 at 00:30 Albumin Human 50 ml @ 100 mls/hr WITH DIALYSIS PRN IV SBP<90 Last administered on 10/29/18at 12:34; Admin Dose 100 MLS/HR; Start 10/26/18 at 17:00 Sodium Chloride (NS) -To prime the dialy... DIRECTED FOR HD PRN IV SBP<90; Start 10/26/18 at 17:00 Daptomycin 230 mg/ Sodium Chloride 100 ml @ 200 mls/hr Q48H IVPB Last administered on 11/06/18at 15:06; Admin Dose 200 MLS/HR; Start 10/29/18 at 16:00 Sodium Chloride (NS) -To prime the dialy... DIRECTED FOR HD PRN IV SBP<90; Start 11/03/18 at 15:30 GEOFF KATHLEEN MD Nov 07, 2018 18:13
--- NOTE | 2018-11-07 18:40 | NUR ---
End of shift summary: Patient in stable condition .V.S within normal limits . Patient alert x 1 ,1:1` sitter for pt's safety .Planning HD tomorrow 11/08/18 Bolus Tube feeding TID ..Called [facility] regarding MD order .Conformation # [id number]. Pending SNF placement . Full report will be given to next shift RN.
[2018-11-07 19:19] VITALS: BP 155/70; PULSE 74; RESP 16
[2018-11-08] VITALS (18 sets, daily range): BP systolic 98–166; BP diastolic 44–74; PULSE 73–110; RESP 16–18
[2018-11-08] MEDS: ACCU-CHEK XX SCH ×5 (02:00→21:27)
[2018-11-08] MEDS: LANSOPRAZOLE 30 MG CAP GTB SCH (05:49)
--- NOTE | 2018-11-08 06:11 | NUR ---
SHIFT NOTES: PATIENT WITH 1 TO 1 SITTER AT BEDSIDE. SCREAMS AND YELLS AT TIMES.PATIENT CONFUSED AND DISORIENTED.BOLUS FEEDING TID TOLERATED WELL. NO RESIDUAL NOTED.KEPT CLEAN AND DRY. LEFT CHEST DIALYSIS CATHETER INTACT. NO BLEEDING NOTED.V/S STABLE,PATIENT FOR HEMODIALYSIS TODAY.NO DIABETIC REACTION NOTED.
--- NOTE | 2018-11-08 06:53 | PN ---
Date/Time of Note Date/Time of Note DATE: 11/08/18 TIME: 06:51 Assessment/Plan VTE Prophylaxis Risk score (from Ns)>0 risk: 8 SCD applied (from Ns): Yes Pharmacological prophylaxis: NA/contraindicated Pharm contraindication: low risk/ambulating Lines/Catheters [facility] Saline Lock Urinary Cath still in place: No Assessment/Plan Hospital Course 83 yo female 1. Dysphagia, status post G-tube placement. 2. Malfunctioning G-tube. 3. Psychiatric disorder. 4. Hypertension. 5. End-stage renal disease. 6. Anemia. 7. Hypertension, which is optimized. 8. 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 PLAN: Continue tube feed bolus, diet as tolerated Pt examined and plan of care discussed with Dr. Baird Result Diagram: 11/05/18 0610 11/05/18 0610 Results 24hrs Laboratory Tests Test 11/07/18 08:01 11/07/18 14:17 11/07/18 17:41 11/07/18 20:15 Bedside Glucose 147 100 227 H 135 Subjective 24 Hr Interval Summary Free Text/Dictation Tolerating tube feeds boluses. NO leaking at tube feed site. Exam/Review of Systems Vital Signs Vitals Vital Signs Date Temp Pulse Resp B/P (MAP) Pulse Ox O2 O2 Flow FiO2 Time Delivery Rate 11/08/18 98.5 73 16 128/74 98 02:00 (92) 11/07/18 Room Air 14:09 Intake and Output 11/07/18 11/07/18 11/08/18 1515:00 23:00 07:00 IntakeIntake Total 250 ml 200 ml BalanceBalance 250 ml 200 ml Exam Constitutional: alert, oriented Psych: no complaints Head: normocephalic Eyes: nl sclera, PERRL ENMT: mucosa pink and moist Respiratory: clear to auscultation Cardiovascular: regular rate and rhythm Gastrointestinal: soft, non-tender, bowel sounds Musculoskeletal: nl gait and stance 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: confused Medications Medications Current Medications Docusate Sodium (Colace Liquid Cup) 100 mg DAILY GTB Last administered on 11/07/18at 09:51; Admin Dose 100 MG; Start 10/17/18 at 09:00 Ferrous Sulfate (Feosol Liquid Cup) 330 mg BID GTB Last administered on 11/07/18at 20:18; Admin Dose 330 MG; Start 10/16/18 at 22:00 Folic Acid (Folic Acid) 1 mg DAILY GTB Last administered on 11/07/18 09:13; Admin Dose 1 MG; Start 10/17/18 at 09:00 Insulin Detemir (Levemir) 8 units DAILY@0800 SC Last administered on 10/17/18 08:40; Admin Dose 8 UNITS; Start 10/17/18 at 08:00; Status Hold Polyethylene Glycol (Miralax) 8.5 gm DAILY PRN GTB CONSTIPATION; Start 10/16/18 at 22:00 Multivit/Ca Carb/ B Cmplx/FA/Prenat (Kianna-Roque) 1 tab DAILY GTB Last administered on 11/07/18 09:13; Admin Dose 1 TAB; Start 10/17/18 at 09:00 Quetiapine Fumarate (Seroquel) 25 mg BID GTB Last administered on 11/07/18 20:19; Admin Dose 25 MG; Start 10/16/18 at 22:00 Linagliptin (Tradjenta) 5 mg DAILY G-TUBE Last administered on 11/07/18 09:13; Admin Dose 5 MG; Start 10/17/18 at 09:00 Diagnostic Test (Pha) (Accu-Chek) 1 ea AC MEALS AND BEDTIME XX Last administered on 11/07/18 20:20; Admin Dose 1 EA; Start 10/17/18 at 07:00 Lorazepam (Ativan) 1 mg Q8H PRN GTB ANXIETY Last administered on 11/06/18 00:39; Admin Dose 1 MG; Start 10/16/18 at 22:00 Senna (Senokot) 1 tab BID GTB Last administered on 11/07/18 20:19; Admin Dose 1 TAB; Start 10/16/18 at 22:00 Ondansetron HCl (Zofran Inj) 4 mg Q6H PRN IV NAUSEA AND/OR VOMITING; Start 1 12/17/17 at 22:00 Acetaminophen (Tylenol Liquid) 650 mg Q6 PRN GTB PAIN Last administered on 11/06/18 16:39; Admin Dose 650 MG; Start 10/16/18 at 22:00 Diagnostic Test (Pha) (Accu-Chek) 1 ea 02 XX Last administered on 12/25/18at 02:35; Admin Dose 1 EA; Start 10/17/18 at 02:00 Insulin Aspart (Novolog Insulin Pen) NOVOLOG *MODERATE* ALGORITHM WITH MEALS BEDTIME SC Last administered on 10/17/18at 17:48; Admin Dose 4 UNIT; Start 10/17/18 at 08:00; Status Hold Miscellaneous Information 1 ea NOTE XX ; Start 10/16/18 at 22:30 Glucose (Glutose) 15 gm Q15M PRN PO DECREASED GLUCOSE; Start 10/16/18 at 22:30 Glucose (Glutose) 22.5 gm Q15M PRN PO DECREASED GLUCOSE; Start 10/16/18 at 22:30 Dextrose (D50w Syringe) 25 ml Q15M PRN IV DECREASED GLUCOSE; Start 10/16/18 at 22:30 Dextrose (D50w Syringe) 50 ml Q15M PRN IV DECREASED GLUCOSE; Start 10/16/18 at 22:30 Glucagon (Glucagen) 1 mg Q15M PRN IM DECREASED GLUCOSE; Start 10/16/18 at 22:30 Glucose (Glutose) 15 gm Q15M PRN BUCCAL DECREASED GLUCOSE Last administered on 10/17/18at 21:33; Admin Dose 15 GM; Start 10/16/18 at 22:30 Hydroxyzine HCl (Atarax) 25 mg Q6H PRN GTB ITCHING Last administered on 11/07/18at 09:14; Admin Dose 25 MG; Start 10/20/18 at 14:00 Calamine (Calamine Lotion) 1 applic BID PRN TOP itching; Start 10/20/18 at 14:00 Amlodipine Besylate (Norvasc) 5 mg BID GTB Last administered on 11/07/18at 20:19; Admin Dose 5 MG; Start 10/20/18 at 21:00 Lansoprazole (Prevacid) 30 mg DAILY@06 GTB Last administered on 11/08/18at 05:49; Admin Dose 30 MG; Start 10/21/18 at 06:00 Hydralazine HCl (Apresoline) 25 mg TID GTB Last administered on 11/07/18at 20:20; Admin Dose 25 MG; Start 10/21/18 at 21:00 Metoprolol Tartrate (Lopressor) 50 mg BID GTB Last administered on 11/07/18at 20:19; Admin Dose 50 MG; Start 10/21/18 at 21:00 Heparin Sodium (Porcine) (Heparin (1000 Units/ml)) 4,000 unit AFTER DIALYSIS CATHETER Last administered on 11/05/18at 17:36; Admin Dose 4,000 UNIT; Start 10/21/18 at 19:00 Haloperidol (Haldol) 2 mg Q4H PRN IM AGITATION Last administered on 10/31/18 05:36; Admin Dose 2 MG; Start 10/26/18 at 00:30 Albumin Human 50 ml @ 100 mls/hr WITH DIALYSIS PRN IV SBP<90 Last administered on 10/29/18at 12:34; Admin Dose 100 MLS/HR; Start 10/26/18 at 17:00 Sodium Chloride (NS) -To prime the dialy... DIRECTED FOR HD PRN IV SBP<90; Start 10/26/18 at 17:00 Daptomycin 230 mg/ Sodium Chloride 100 ml @ 200 mls/hr Q48H IVPB Last administered on 11/06/18at 15:06; Admin Dose 200 MLS/HR; Start 10/29/18 at 16:00 Sodium Chloride (NS) -To prime the dialy... DIRECTED FOR HD PRN IV SBP<90; Start 11/03/18 at 15:30 TONY VENCES Nov 08, 2018 06:53
[2018-11-08] MEDS: AMLODIPINE 5 MG TAB GTB SCH ×2 (09:00→21:08)
[2018-11-08] MEDS: METOPROLOL 50 MG TAB GTB SCH ×2 (09:00→21:06)
--- NOTE | 2018-11-08 09:12 | NUR ---
BRITTA NOTE: SNF UPDATE S/W Maria Luisa at [facility] (P:[phone], F:[phone]) regarding acceptance back. Per Maria Luisa, she is working on transportation to dialysis for pt. Updated clinicals faxed per Maria Luisa request. Confirmation received. Ranulfo Obregon RN CM [id number] Addendum: 11/08/18 at 1533 by FELICIANO OBREGON CM S/W Maria Luisa from [facility] who states that they are accepting pt, however unable to accept until Thursday when transportation can be arranged due to Dialysis Center being closed tomorrow. FADY Otto aware.
[2018-11-08] MEDS: MULTIVIT/CA CARB/B CMPLX/FA TAB GTB SCH (09:15)
[2018-11-08] MEDS: DOCUSATE SODIUM 10 MG/ML (10ML CUP) GTB SCH (09:15)
[2018-11-08] MEDS: SENNA TAB GTB SCH ×2 (09:15→21:07)
[2018-11-08] MEDS: QUETIAPINE 25 MG TAB GTB SCH ×2 (09:15→21:07)
[2018-11-08] MEDS: LINAGLIPTIN 5 MG TABLET G-TUBE SCH (09:15)
[2018-11-08] MEDS: FOLIC ACID 1 MG TAB GTB SCH (09:15)
[2018-11-08] MEDS: FERROUS SULFATE 60 MG/ML 5ML CUP GTB SCH ×2 (09:15→21:05)
--- NOTE | 2018-11-08 10:14 | PDOCDIS ---
Discharge Instructions CONDITION [id number] Patient Condition: [id number] Stable HOME CARE INSTRUCTIONS: [id number] Special Diet: [id number] pureed FOLLOW UP/APPOINTMENTS Follow-up Plan see reconciliation, fall precautions at all times, psychiatry follow up DYLON WALLS MD Nov 08, 2018 10:14
[2018-11-08] MEDS: hydrOXYzine HCL 25 MG TAB GTB PRN (12:56)
[2018-11-08] MEDS ORDERED: DIVALPROEX (EC) 125 MG TAB PO SCH (13:00)
[2018-11-08] MEDS: VALPROIC ACID LIQUID CUP 250 MG/5 ML CUP PO SCH ×2 (14:33→21:05)
--- NOTE | 2018-11-08 16:00 | NUR ---
Patient with ongoing dialysis, will give IV ATB after dialysis
--- NOTE | 2018-11-08 16:33 | DS ---
DATE OF ADMISSION: 10/16/2018 DATE OF DISCHARGE: 11/08/2018 REASON FOR ADMISSION: Hypotension, mild encephalopathy, rule out sepsis. HISTORY OF PRESENT ILLNESS: The patient is an 83-year-old [place] female with multiple medical prob lems including end-stage renal disease on dialysis 3 times a week, diastolic dysfunction, heart failu re, diabetes mellitus, hypertension, vascular dementia, anxiety disorder, COPD, anemia, who was broug ht into [facility] after she was noted to be hypotensive in the dialysis center in the 80s. Upon presentation, lactic acid was high at 2.5. We were concerned about sepsis. Blood pre ssure meds were placed on hold and she was found to have bacteremia as the blood cultures were positi ve. The patient was started on antibiotics and multiple physicians were consulted during this hospit alization including Dr. Proctor, the infectious disease specialist, Dr. Juliocesar Stringer, the field superintendent , Dr. Stevens, who just was consulted regarding the echocardiogram and Dr. Sagastume, the vascular surgeon . Ultimately blood cultures revealed VRE. Initially she was placed on Zyvox and then daptomycin. S he completed a course of 2 weeks. During hospitalization, she required transfusions due to a somewha t malfunctioning left IJ. Her right IJ Perm-A-Cath was removed due to her line sepsis. The patient also very anxious and was asked to have a sitter due to danger to self. The patient had previous hi story of fall. H and H has stabilized and repeat blood cultures actually came back positive again on 10/22/2018. This is from the wound culture, but then repeat cultures on the was negative, so 2 weeks course of antibiotics were given and patient is stable. She will be dialyzed today and patien t can then be discharged back to the [facility] facility for further medical management. DISCHARGE MEDICATIONS: The patient will be discharged with the following medications: 1. Accu-Chek q.a.c. and at bedtime. 2. Tylenol p.r.n. 3. Norvasc 5 mg twice a day. Calamine lotion as directed. 4. Daptomycin to be discontinued. 5. Depakote. I just started that today 125 t.i.d. due to her mood. 6. Colace 100 mg daily. 7. Ferrous sulfate 330 b.i.d. 8. Folic acid 1 mg daily. 9. Haldol 1 to 2 IM q.4h p.r.n. 10. Hydralazine 25 t.i.d. 11. Hydroxyzine q.6h p.r.n. for pruritus. 12. Insulin Aspart per sliding scale. 13. Levimir 8 units daily. 14. Prevacid 30 mg daily. 15. Tradjenta 5 mg daily. 16. Ativan 1 mg q. 8 hours as needed. 17. Lopressor 50 mg b.i.d. 18. Treatment of hypoglycemia as directed. 19. Multivitamin or Kianna-Roque 1 tab daily. 20. Zofran 4 mg G-tube q.4h p.r.n. nausea, vomiting. 21. MiraLax as directed. 22. Seroquel 25 b.i.d. 23. Senna 1 tab b.i.d. FINAL DIAGNOSES: 1. Hypotension, rule out sepsis. 2. Line sepsis, organism VRE. 3. End-stage renal disease. 4. Anemia, status post multiple transfusions. 5. Malfunctioning left IJ status post suturing by Dr. Sagastume. 6. advanced renal disease. 7. Hypertension. 8. Anxiety disorder. 9. Diabetes mellitus, overall controlled. 10. Dysphagia. 11. Moderate caloric-protein malnutrition, on G-tube feeding as well as oral feeding for oral gratif ication. 12. Constipation. 13. Malfunctioning G-tube that was replaced as well by Dr. Baird. 14. History of falls. 15. Significant vascular dementia. 16. History of hip fracture. 17. Thrombocytopenia, resolved. May be medication induced. 18. Atherosclerotic cardiovascular disease. 19. The patient had a sitter throughout her stay due to risk for a fall. DIET: Again via G-tube and pureed via oral and a renal 2 gram sodium. CONDITION ON DISCHARGE: The patient will be discharged in fair condition. LONG-TERM PROGNOSIS: Remains guarded due to multiple medical issues. Case discussed with the [facility] on an intermittent basis. Dictated By: DYLON HULL/MADAN Conf#: [id number] DID#: [id number] CC: DYLON WALLS MD;*EndCC*
--- NOTE | 2018-11-08 16:40 | CONS ---
Date/Time of Note Date/Time of Note DATE: 11/08/18 TIME: 16:39 Assessment/Plan Assessment/Plan Hospital Course 1. SEPSIS 2. s/p ams 3. s/p prbc 4. End-stage renal disease on hemodialysis. 5. Diabetes. 6. hx hip fracture 7. History of vascular dementia. 8. Hypertension. 9. History of falls. 10. Anemia. 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 plan hd am dc planning Result Diagram: 11/08/18 0911 11/08/18 0911 Results 24hrs Laboratory Tests Test 11/07/18 17:41 11/07/18 20:15 11/08/18 08:44 11/08/18 09:11 Bedside Glucose 227 H 135 151 White Blood 9.7 Count Red Blood Count 2.96 L Hemoglobin 8.3 L Hematocrit 25.0 L Mean Corpuscular 84.5 Volume Mean Corpuscular 28.0 L Hemoglobin Mean Corpuscular 33.2 Hemoglobin Mckayla nt Red Cell 16.1 H Distribution Width Platelet Count 343 # Mean Platelet 11.7 H Volume Immature 0.300 Granulocytes % Neutrophils % 71.1 Lymphocytes % 13.1 L Monocytes % 8.2 Eosinophils % 7.0 Basophils % 0.3 Nucleated Red 0.3 H Blood Cells % Immature 0.030 Granulocytes # Neutrophils # 6.9 Lymphocytes # 1.3 Monocytes # 0.8 Eosinophils # 0.7 H Basophils # 0.0 Nucleated Red 0.0 Blood Cells # Sodium Level 142 Potassium Level 3.9 Chloride Level 99 Carbon Dioxide 28 Level Anion Gap 15 H Blood Urea 87 H Nitrogen Creatinine 3.05 H Est Glomerular Filtrat Rate mL/min Glucose Level 137 Calcium Level 9.6 Test 11/08/18 12:56 Bedside Glucose 144 Consultation Date/Type/Reason Admit Date/Time Oct 16, 2018 at 18:45 Initial Consult Date RENAL no bleeding from cath site no sob no distress 24 HR Interval Summary Constitutional: no complaints; No disoriented, No febrile Exam/Review of Systems Vital Signs Vitals Vital Signs Date Temp Pulse Resp B/P (MAP) Pulse Ox O2 O2 Flow FiO2 Time Delivery Rate 11/08/18 98.2 88 18 149/65 97 14:00 (93) 11/07/18 Room Air 14:09 Intake and Output 11/07/18 11/07/18 11/08/18 1515:00 23:00 07:00 IntakeIntake Total 250 ml 200 ml BalanceBalance 250 ml 200 ml Exam Neck: supple Respiratory: diminished breath sounds Cardiovascular: regular rate and rhythm Gastrointestinal: soft Musculoskeletal: nl extremities to inspection Extremities: normal pulses Medications Medications Current Medications Docusate Sodium (Colace Liquid Cup) 100 mg DAILY GTB Last administered on 1 09:15; Admin Dose 100 MG; Start 10/17/18 at 09:00 Ferrous Sulfate (Feosol Liquid Cup) 330 mg BID GTB Last administered on 11/08/18 09:15; Admin Dose 330 MG; Start 10/16/18 at 22:00 Folic Acid (Folic Acid) 1 mg DAILY GTB Last administered on 11/08/18 09:15; Admin Dose 1 MG; Start 10/17/18 at 09:00 Insulin Detemir (Levemir) 8 units DAILY@0800 SC Last administered on 10/17/18 08:40; Admin Dose 8 UNITS; Start 10/17/18 at 08:00; Status Hold Polyethylene Glycol (Miralax) 8.5 gm DAILY PRN GTB CONSTIPATION; Start 10/16/18 at 22:00 Multivit/Ca Carb/ B Cmplx/FA/Prenat (Kianna-Roque) 1 tab DAILY GTB Last administered on 11/08/18 09:15; Admin Dose 1 TAB; Start 10/17/18 at 09:00 Quetiapine Fumarate (Seroquel) 25 mg BID GTB Last administered on 11/08/18 09:15; Admin Dose 25 MG; Start 10/16/18 at 22:00 Linagliptin (Tradjenta) 5 mg DAILY G-TUBE Last administered on 11/08/18 09: 15; Admin Dose 5 MG; Start 10/17/18 at 09:00 Diagnostic Test (Pha) (Accu-Chek) 1 ea AC MEALS AND BEDTIME XX Last administered on 11/07/18 20:20; Admin Dose 1 EA; Start 10/17/18 at 07:00 Lorazepam (Ativan) 1 mg Q8H PRN GTB ANXIETY Last administered on 11/06/18 00:39; Admin Dose 1 MG; Start 10/16/18 at 22:00 Senna (Senokot) 1 tab BID GTB Last administered on 12/31/18at 09:15; Admin Dose 1 TAB; Start 10/16/18 at 22:00 Ondansetron HCl (Zofran Inj) 4 mg Q6H PRN IV NAUSEA AND/OR VOMITING; Start 10/16/18 at 22:00 Acetaminophen (Tylenol Liquid) 650 mg Q6 PRN GTB PAIN Last administered on at 16:39; Admin Dose 650 MG; Start 10/16/18 at 22:00 Diagnostic Test (Pha) (Accu-Chek) 1 ea 02 XX Last administered on 11/02/18at 02:35; Admin Dose 1 EA; Start 10/17/18 at 02:00 Insulin Aspart (Novolog Insulin Pen) NOVOLOG *MODERATE* ALGORITHM WITH MEALS BEDTIME SC Last administered on 10/17/18at 17:48; Admin Dose 4 UNIT; Start 10/17/18 at 08:00; Status Hold Miscellaneous Information 1 ea NOTE XX ; Start 10/16/18 at 22:30 Glucose (Glutose) 15 gm Q15M PRN PO DECREASED GLUCOSE; Start 10/16/18 at 22:30 Glucose (Glutose) 22.5 gm Q15M PRN PO DECREASED GLUCOSE; Start 10/16/18 at 22:30 Dextrose (D50w Syringe) 25 ml Q15M PRN IV DECREASED GLUCOSE; Start 10/16/18 at 22:30 Dextrose (D50w Syringe) 50 ml Q15M PRN IV DECREASED GLUCOSE; Start 10/16/18 at 22:30 Glucagon (Glucagen) 1 mg Q15M PRN IM DECREASED GLUCOSE; Start 10/16/18 at 22:30 Glucose (Glutose) 15 gm Q15M PRN BUCCAL DECREASED GLUCOSE Last administered on 10/17/18at 21:33; Admin Dose 15 GM; Start 10/16/18 at 22:30 Hydroxyzine HCl (Atarax) 25 mg Q6H PRN GTB ITCHING Last administered on 11/08/18at 12:56; Admin Dose 25 MG; Start 10/20/18 at 14:00 Calamine (Calamine Lotion) 1 applic BID PRN TOP itching; Start 10/20/18 at 1 4:00 Amlodipine Besylate (Norvasc) 5 mg BID GTB Last administered on 11/07/18at 20:19; Admin Dose 5 MG; Start 10/20/18 at 21:00 Lansoprazole (Prevacid) 30 mg DAILY@06 GTB Last administered on 11/08/18 05:49; Admin Dose 30 MG; Start 10/21/18 at 06:00 Hydralazine HCl (Apresoline) 25 mg TID GTB Last administered on 11/07/18 20:20; Admin Dose 25 MG; Start 10/21/18 at 21:00 Metoprolol Tartrate (Lopressor) 50 mg BID GTB Last administered on 11/07/18 20:19; Admin Dose 50 MG; Start 10/21/18 at 21:00 Heparin Sodium (Porcine) (Heparin (1000 Units/ml)) 4,000 unit AFTER DIALYSIS CATHETER Last administered on 11/05/18 17:36; Admin Dose 4,000 UNIT; Start 10/21/18 at 19:00 Haloperidol (Haldol) 2 mg Q4H PRN IM AGITATION Last administered on 10/31/18 05:36; Admin Dose 2 MG; Start 10/26/18 at 00:30 Albumin Human 50 ml @ 100 mls/hr WITH DIALYSIS PRN IV SBP<90 Last administered on 10/29/18at 12:34; Admin Dose 100 MLS/HR; Start 10/26/18 at 17:00 Sodium Chloride (NS) -To prime the dialy... DIRECTED FOR HD PRN IV SBP<90; Start 10/26/18 at 17:00 Daptomycin 230 mg/ Sodium Chloride 100 ml @ 200 mls/hr Q48H IVPB Last administered on 11/06/18at 15:06; Admin Dose 200 MLS/HR; Start 10/29/18 at 16:00 Sodium Chloride (NS) -To prime the dialy... DIRECTED FOR HD PRN IV SBP<90; Start 11/03/18 at 15:30 Valproate Sodium (Depakene Liquid Cup) 125 mg TID PO Last administered on 11/08/18at 14:33; Admin Dose 125 MG; Start 11/08/18 at 13:36 GEOFF KATHLEEN MD Nov 08, 2018 16:40
--- NOTE | 2018-11-08 18:12 | NUR ---
END OF SHIFT Patient alert, confused. Continue 1:1sitter for safety. Ongoing dialysis at this time. Needs attended. Due medications given, tolerated well. Will continue to monitor.
[2018-11-08] MEDS: DAPTOMYCIN 230 MG in SOD CHLORIDE 0.9% 100 ML IVPB SCH (18:48)
[2018-11-08] MEDS: LORAZEPAM 1 MG TAB GTB PRN (21:06)
[2018-11-09 02:00] VITALS: BP 137/63; PULSE 83; RESP 18
[2018-11-09] MEDS: ACCU-CHEK XX SCH ×5 (02:00→21:00)
[2018-11-09] MEDS: hydrOXYzine HCL 25 MG TAB GTB PRN (05:27)
[2018-11-09] MEDS: LANSOPRAZOLE 30 MG CAP GTB SCH (05:27)
--- NOTE | 2018-11-09 05:48 | NUR ---
SHIFT REPORT; NO SIGNIFICANT CHANGE OF CONDITION WAS NOTED THIS SHIFT. PATIENT CONTINUE ON HER ROUTINE ACTIVITY WHICH IS SCREAMING AND CURSING THE STAFFS.PATIENT IS COMBATIVE. ON 1:1 SITTER TO PREVENT PULLING OUT HER PERMACATH AND GTUBE.DUE MEDICATIONS WAS GIVEN. NOVASOURCE 250ML WAS GIVEN AT 10PM, WITH ASPIRATION PRECAUTION. FALL RISK. ALL NEEDS MET AND ATTENDED. WILL CONTINUE TO MONITOR.
[2018-11-09 07:51] VITALS: BP 132/60; PULSE 88; RESP 18
[2018-11-09] MEDS: FERROUS SULFATE 60 MG/ML 5ML CUP GTB SCH ×2 (08:51→22:03)
[2018-11-09] MEDS: ACETAMINOPHEN 650MG/20.3ML CUP GTB PRN (08:51)
[2018-11-09] MEDS: DOCUSATE SODIUM 10 MG/ML (10ML CUP) GTB SCH (08:51)
[2018-11-09] MEDS: QUETIAPINE 25 MG TAB GTB SCH ×2 (08:52→22:03)
[2018-11-09] MEDS: LORAZEPAM 1 MG TAB GTB PRN (08:52)
[2018-11-09] MEDS: VALPROIC ACID LIQUID CUP 250 MG/5 ML CUP PO SCH ×3 (08:52→22:03)
[2018-11-09] MEDS: FOLIC ACID 1 MG TAB GTB SCH (08:52)
[2018-11-09] MEDS: LINAGLIPTIN 5 MG TABLET G-TUBE SCH (08:52)
[2018-11-09] MEDS: MULTIVIT/CA CARB/B CMPLX/FA TAB GTB SCH (08:52)
[2018-11-09] MEDS: METOPROLOL 50 MG TAB GTB SCH ×2 (08:53→21:00)
[2018-11-09] MEDS: SENNA TAB GTB SCH ×2 (08:53→21:00)
[2018-11-09] MEDS: AMLODIPINE 5 MG TAB GTB SCH ×2 (08:53→21:00)
--- NOTE | 2018-11-09 09:17 | CONS ---
Date/Time of Note Date/Time of Note DATE: 11/09/18 TIME: 09:15 Consult Date/Type/Reason Admit Date/Time Oct 16, 2018 at 18:45 Initial Consult Date Subjective tolerating tube feeds, no PEG leak, no n/v Objective Vital Signs Date Temp Pulse Resp B/P (MAP) Pulse Ox O2 O2 Flow FiO2 Time Delivery Rate 11/09/18 98.6 88 18 132/60 99 07:51 (84) 11/08/18 Room Air 19:12 Intake and Output 11/08/18 11/08/18 11/09/18 1515:00 23:00 07:00 IntakeIntake Total 600 ml 300 ml OutputOutput Total 1900 ml BalanceBalance -1300 ml 300 ml Exam Constitutional: alert, oriented Psych: no complaints Head: normocephalic Eyes: nl sclera, PERRL ENMT: mucosa pink and moist Respiratory: clear to auscultation Cardiovascular: regular rate and rhythm Gastrointestinal: soft, non-tender, bowel sounds Musculoskeletal: nl gait and stance 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: confused Results/Medications Result Diagram: 11/08/18 0911 11/08/18 0911 Results 24 hrs Laboratory Tests Test 11/08/18 12:56 11/08/18 17:46 11/08/18 21:22 11/09/18 08:30 Bedside Glucose 144 199 160 134 Medications Current Medications Docusate Sodium (Colace Liquid Cup) 100 mg DAILY GTB Last administered on 11/09/18 08:51; Admin Dose 100 MG; Start 10/17/18 at 09:00 Ferrous Sulfate (Feosol Liquid Cup) 330 mg BID GTB Last administered on 08:51; Admin Dose 330 MG; Start 10/16/18 at 22:00 Folic Acid (Folic Acid) 1 mg DAILY GTB Last administered on 11/09/18 08:52; Admin Dose 1 MG; Start 10/17/18 at 09:00 Insulin Detemir (Levemir) 8 units DAILY@0800 SC Last administered on 10/17/18at 08:40; Admin Dose 8 UNITS; Start 10/17/18 at 08:00; Status Hold Polyethylene Glycol (Miralax) 8.5 gm DAILY PRN GTB CONSTIPATION; Start 10/16/18 at 22:00 Multivit/Ca Carb/ B Cmplx/FA/Prenat (Kianna-Roque) 1 tab DAILY GTB Last administered on 11/09/18 08:52; Admin Dose 1 TAB; Start 10/17/18 at 09:00 Quetiapine Fumarate (Seroquel) 25 mg BID GTB Last administered on 11/09/18 08:52; Admin Dose 25 MG; Start 10/16/18 at 22:00 Linagliptin (Tradjenta) 5 mg DAILY G-TUBE Last administered on 11/09/18 08:52; Admin Dose 5 MG; Start 10/17/18 at 09:00 Diagnostic Test (Pha) (Accu-Chek) 1 ea AC MEALS AND BEDTIME XX Last administered on 11/08/18 21:27; Admin Dose 1 EA; Start 10/17/18 at 07:00 Lorazepam (Ativan) 1 mg Q8H PRN GTB ANXIETY Last administered on 11/09/18 08:52; Admin Dose 1 MG; Start 10/16/18 at 22:00 Senna (Senokot) 1 tab BID GTB Last administered on 11/09/18 08:53; Admin Dose 1 TAB; Start 10/16/18 at 22:00 Ondansetron HCl (Zofran Inj) 4 mg Q6H PRN IV NAUSEA AND/OR VOMITING; Start 10/16/18 at 22:00 Acetaminophen (Tylenol Liquid) 650 mg Q6 PRN GTB PAIN Last administered on 11/09/18 08:51; Admin Dose 650 MG; Start 10/16/18 at 22:00 Diagnostic Test (Pha) (Accu-Chek) 1 ea 02 XX Last administered on 11/02/18at 02:35; Admin Dose 1 EA; Start 10/17/18 at 02:00 Insulin Aspart (Novolog Insulin Pen) NOVOLOG *MODERATE* ALGORITHM WITH MEALS BEDTIME SC Last administered on 10/17/18at 17:48; Admin Dose 4 UNIT; Start 10/17/18 at 08:00; Status Hold Miscellaneous Information 1 ea NOTE XX ; Start 10/16/18 at 22:30 Glucose (Glutose) 15 gm Q15M PRN PO DECREASED GLUCOSE; Start 10/16/18 at 22:30 Glucose (Glutose) 22.5 gm Q15M PRN PO DECREASED GLUCOSE; Start 10/16/18 at 22:30 Dextrose (D50w Syringe) 25 ml Q15M PRN IV DECREASED GLUCOSE; Start 10/16/18 at 22:30 Dextrose (D50w Syringe) 50 ml Q15M PRN IV DECREASED GLUCOSE; Start 10/16/18 at 22:30 Glucagon (Glucagen) 1 mg Q15M PRN IM DECREASED GLUCOSE; Start 10/16/18 at 22:30 Glucose (Glutose) 15 gm Q15M PRN BUCCAL DECREASED GLUCOSE Last administered on 10/17/18 21:33; Admin Dose 15 GM; Start 10/16/18 at 22:30 Hydroxyzine HCl (Atarax) 25 mg Q6H PRN GTB ITCHING Last administered on 11/09/18 05:27; Admin Dose 25 MG; Start 10/20/18 at 14:00 Calamine (Calamine Lotion) 1 applic BID PRN TOP itching; Start 10/20/18 at 14:00 Amlodipine Besylate (Norvasc) 5 mg BID GTB Last administered on 11/09/18 08:53; Admin Dose 5 MG; Start 10/20/18 at 21:00 Lansoprazole (Prevacid) 30 mg DAILY@06 GTB Last administered on 11/09/18 05:27; Admin Dose 30 MG; Start 10/21/18 at 06:00 Hydralazine HCl (Apresoline) 25 mg TID GTB Last administered on 11/09/18 08:53; Admin Dose 25 MG; Start 10/21/18 at 21:00 Metoprolol Tartrate (Lopressor) 50 mg BID GTB Last administered on 11/09/18 08:53; Admin Dose 50 MG; Start 10/21/18 at 21:00 Heparin Sodium (Porcine) (Heparin (1000 Units/ml)) 4,000 unit AFTER DIALYSIS CATHETER Last administered on 11/05/18 17:36; Admin Dose 4,000 UNIT; Start 10/21/18 at 19:00 Haloperidol (Haldol) 2 mg Q4H PRN IM AGITATION Last administered on 10/31/18 05:36; Admin Dose 2 MG; Start 10/26/18 at 00:30 Albumin Human 50 ml @ 100 mls/hr WITH DIALYSIS PRN IV SBP<90 Last administered on 10/29/18at 12:34; Admin Dose 100 MLS/HR; Start 10/26/18 at 17:00 Sodium Chloride (NS) -To prime the dialy... DIRECTED FOR HD PRN IV SBP<90; Start 10/26/18 at 17:00 Daptomycin 230 mg/ Sodium Chloride 100 ml @ 200 mls/hr Q48H IVPB Last administered on 11/08/18at 18:48; Admin Dose 200 MLS/HR; Start 10/29/18 at 16:00 Sodium Chloride (NS) -To prime the dialy... DIRECTED FOR HD PRN IV SBP<90; Start 11/03/18 at 15:30 Valproate Sodium (Depakene Liquid Cup) 125 mg TID PO Last administered on 11/09/18at 08:52; Admin Dose 125 MG; Start 11/08/18 at 13:36 Assessment/Plan Additional Assessment/Plan 1. Dysphagia, status post G-tube placement. 2. Malfunctioning G-tube. 3. Psychiatric disorder. 4. Hypertension. 5. End-stage renal disease. 6. Anemia. 7. Hypertension, which is optimized. 8. 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 PLAN: Continue tube feed bolus, diet as tolerated PEG care per floor protocol VICTORINO PATEL MD Nov 09, 2018 09:17
[2018-11-09 13:15] VITALS: BP 92/43; PULSE 77; RESP 18
--- NOTE | 2018-11-09 15:06 | CONS ---
Date/Time of Note Date/Time of Note DATE: 11/09/18 TIME: 15:04 Assessment/Plan Assessment/Plan Hospital Course 83 y/o with This is an 83-year-old female with: 1. Hypotension, could be secondary to sepsis as the patient has positive bacteremia/urinary tract infection VRE bactermia. s/p permcath removal and new placement The patient was continued on blood pressure medicines aggressively 2. Altered level of consciousness, likely secondary to metabolic encephalopathy, secondary to low blood pressures. vs Vascular dementia 3. Mild hyponatremia. 4. End-stage renal disease on hemodialysis. 5. Diabetes. 6. Dysphagia, status post G-tube feeding. 7. History of vascular dementia. 8. Hypertension. 9. History of falls. 10. Anemia. 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 S/P REMOVAL now with new permcatth 12 Persistent on and off bleedeing from permcath > s/p suture now stopped Plan - HD tmw -on iv dapto per ID - hold bp meds before HD -Appreciate vascular/ID consultation -Renally dose all meds Result Diagram: 11/08/18 0911 11/08/18 0911 Results 24hrs Laboratory Tests Test 11/08/18 17:46 11/08/18 21:22 11/09/18 08:30 11/09/18 11:30 Bedside Glucose 199 160 134 180 Consultation Date/Type/Reason Admit Date/Time Oct 16, 2018 at 18:45 Initial Consult Date 24 HR Interval Summary Free Text/Dictation Plan is to dc in am Pt is comfortable Exam/Review of Systems Vital Signs Vitals Vital Signs Date Temp Pulse Resp B/P (MAP) Pulse Ox O2 O2 Flow FiO2 Time Delivery Rate 11/09/18 98.1 77 18 92/43 (59) 93 Room Air 13:15 Intake and Output 11/08/18 11/08/18 11/09/18 1515:00 23:00 07:00 IntakeIntake Total 600 ml 300 ml OutputOutput Total 1900 ml BalanceBalance -1300 ml 300 ml Exam Neck: supple Respiratory: diminished breath sounds Cardiovascular: regular rate and rhythm Gastrointestinal: soft Musculoskeletal: nl extremities to inspection Extremities: normal pulses Medications Medications Current Medications Docusate Sodium (Colace Liquid Cup) 100 mg DAILY GTB Last administered on 11/09/18at 08:51; Admin Dose 100 MG; Start 10/17/18 at 09:00 Ferrous Sulfate (Feosol Liquid Cup) 330 mg BID GTB Last administered on 11/09/18 08:51; Admin Dose 330 MG; Start 10/16/18 at 22:00 Folic Acid (Folic Acid) 1 mg DAILY GTB Last administered on 11/09/18 08:52; Admin Dose 1 MG; Start 10/17/18 at 09:00 Insulin Detemir (Levemir) 8 units DAILY@0800 SC Last administered on 10/17/18at 08:40; Admin Dose 8 UNITS; Start 10/17/18 at 08:00; Status Hold Polyethylene Glycol (Miralax) 8.5 gm DAILY PRN GTB CONSTIPATION; Start 10/16/18 at 22:00 Multivit/Ca Carb/ B Cmplx/FA/Prenat (Kianna-Roque) 1 tab DAILY GTB Last administered on 11/09/18 08:52; Admin Dose 1 TAB; Start 10/17/18 at 09:00 Quetiapine Fumarate (Seroquel) 25 mg BID GTB Last administered on 11/09/18 08:52; Admin Dose 25 MG; Start 10/16/18 at 22:00 Linagliptin (Tradjenta) 5 mg DAILY G-TUBE Last administered on 11/09/18 08:52; Admin Dose 5 MG; Start 10/17/18 at 09:00 Diagnostic Test (Pha) (Accu-Chek) 1 ea AC MEALS AND BEDTIME XX Last administered on 11/08/18at 21:27; Admin Dose 1 EA; Start 10/17/18 at 07:00 Senna (Senokot) 1 tab BID GTB Last administered on 11/09/18 08:53; Admin Dose 1 TAB; Start 10/16/18 at 22:00 Ondansetron HCl (Zofran Inj) 4 mg Q6H PRN IV NAUSEA AND/OR VOMITING; Start 10/16/18 at 22:00 Acetaminophen (Tylenol Liquid) 650 mg Q6 PRN GTB PAIN Last administered on 11/09/18 08:51; Admin Dose 650 MG; Start 10/16/18 at 22:00 Diagnostic Test (Pha) (Accu-Chek) 1 ea 02 XX Last administered on 11/02/18at 02:35; Admin Dose 1 EA; Start 10/17/18 at 02:00 Insulin Aspart (Novolog Insulin Pen) NOVOLOG *MODERATE* ALGORITHM WITH MEALS BEDTIME SC Last administered on 10/17/18at 17:48; Admin Dose 4 UNIT; Start 10/17/18 at 08:00; Status Hold Miscellaneous Information 1 ea NOTE XX ; Start 10/16/18 at 22:30 Glucose (Glutose) 15 gm Q15M PRN PO DECREASED GLUCOSE; Start 10/16/18 at 22:30 Glucose (Glutose) 22.5 gm Q15M PRN PO DECREASED GLUCOSE; Start 10/16/18 at 22:30 Dextrose (D50w Syringe) 25 ml Q15M PRN IV DECREASED GLUCOSE; Start 10/16/18 at 22:30 Dextrose (D50w Syringe) 50 ml Q15M PRN IV DECREASED GLUCOSE; Start 10/16/18 at 22:30 Glucagon (Glucagen) 1 mg Q15M PRN IM DECREASED GLUCOSE; Start 10/16/18 at 22:30 Glucose (Glutose) 15 gm Q15M PRN BUCCAL DECREASED GLUCOSE Last administered on 10/17/18at 21:33; Admin Dose 15 GM; Start 10/16/18 at 22:30 Hydroxyzine HCl (Atarax) 25 mg Q6H PRN GTB ITCHING Last administered on 11/09/18 05:27; Admin Dose 25 MG; Start 10/20/18 at 14:00 Calamine (Calamine Lotion) 1 applic BID PRN TOP itching; Start 10/20/18 at 14:00 Amlodipine Besylate (Norvasc) 5 mg BID GTB Last administered on 11/09/18 08:53; Admin Dose 5 MG; Start 10/20/18 at 21:00 Lansoprazole (Prevacid) 30 mg DAILY@06 GTB Last administered on 11/09/18 05:27; Admin Dose 30 MG; Start 10/21/18 at 06:00 Hydralazine HCl (Apresoline) 25 mg TID GTB Last administered on 11/09/18 08:53; Admin Dose 25 MG; Start 10/21/18 at 21:00 Metoprolol Tartrate (Lopressor) 50 mg BID GTB Last administered on 11/09/18 08:53; Admin Dose 50 MG; Start 10/21/18 at 21:00 Heparin Sodium (Porcine) (Heparin (1000 Units/ml)) 4,000 unit AFTER DIALYSIS CATHETER Last administered on 11/05/18at 17:36; Admin Dose 4,000 UNIT; Start 10/21/18 at 19:00 Haloperidol (Haldol) 2 mg Q4H PRN IM AGITATION Last administered on 10/31/18at 05:36; Admin Dose 2 MG; Start 10/26/18 at 00:30 Albumin Human 50 ml @ 100 mls/hr WITH DIALYSIS PRN IV SBP<90 Last administered on 10/29/18at 12:34; Admin Dose 100 MLS/HR; Start 10/26/18 at 17:00 Sodium Chloride (NS) -To prime the dialy... DIRECTED FOR HD PRN IV SBP<90; Start 10/26/18 at 17:00 Daptomycin 230 mg/ Sodium Chloride 100 ml @ 200 mls/hr Q48H IVPB Last administered on 11/08/18at 18:48; Admin Dose 200 MLS/HR; Start 10/29/18 at 16:00 Sodium Chloride (NS) -To prime the dialy... DIRECTED FOR HD PRN IV SBP<90; Start 11/03/18 at 15:30 Valproate Sodium (Depakene Liquid Cup) 125 mg TID PO Last administered on 11/09/18at 13:19; Admin Dose 125 MG; Start 11/08/18 at 13:36 Lorazepam (Ativan) 0.5 mg Q8H PRN GTB ANXIETY; Start 11/09/18 at 15:00 JOSE RAUL ANDREWS MD Nov 09, 2018 15:06
--- NOTE | 2018-11-09 15:52 | NUR ---
Called [facility],, scheduled dialysis for tomorrow spoke with Dian with confirmation #[id number]
--- NOTE | 2018-11-09 16:21 | PN ---
DATE: 11/09/2018 SUBJECTIVE: The patient was not discharged yesterday as the facility is arranging hemodialysis trans portation. This may take a day or two to arrange. Case discussed with nursing staff. Overall, teo ent remains comfortable lying in bed, currently resting. PHYSICAL EXAMINATION: VITAL SIGNS: Temperature 98.6, pulse 98, respirations 18, blood pressure 122/ , saturation 99% o n room air. GENERAL: In no acute distress. The patient is frail. Temporal wasting. CARDIOVASCULAR: S1, S2. Regular rate. LUNGS: Clear. CHEST: Left IJ is in place. ABDOMEN: Soft, nontender. G-tube in place. EXTREMITIES: No clubbing, cyanosis or edema. LABORATORY DATA: No new labs today. Labs dated yesterday show a white count of 9.7, hemoglobin 8.3. Chemistry on 11/08 shows sodium 142, potassium 3.9, chloride 99, bicarb 28, BUN is 87, creatinine 3 .05 and glucose of 137. MEDICATIONS: 1. Depakote 125 t.i.d. I started that yesterday due to patient's mood. 2. Daptomycin as directed. We can discontinue that. She finished a course for 2 weeks of IV antibi otics for VRE bacteremia. 3. The patient is on Haldol p.r.n. 4. Hydralazine 25 t.i.d. 5. Metoprolol tartrate 50 b.i.d. 6. Heparin as directed. 7. Prevacid 20 mg daily. 8. Norvasc 5 mg b.i.d. 9. Atarax p.r.n. 10. Calamine lotion as directed. 11. Colace daily. 12. Folic acid as directed. 13. Kianna-Roque 1 tab daily. 14. Tradjenta 5 mg daily. 15. Accu-Chek as directed. 16. Hypoglycemia protocol as directed. 17. Ferrous sulfate b.i.d. 18. MiraLax p.r.n. 19. Seroquel 25 b.i.d. 20. Ativan 1 mg q.8 p.r.n. 21. Senna 1 tab b.i.d. 22. Zofran p.r.n. 23. Tylenol p.r.n. ASSESSMENT AND PLAN: This is an 83-year-old [place] female with history of end-stage renal disease, chronic obstructive pulmonary disease, vascular dementia, cerebrovascular accident, who presented wi th hypotension and was found to have line sepsis. 1. Respiratory. Stable off oxygen. 2. Cardiovascular. Blood pressure is controlled. Continue all current meds. Sometimes her blood p ressure meds are being held on dialysis days. 3. Infectious disease. The patient completed the course of 2 weeks of IV antibiotics for vancomycin -resistant enterococcal bacteremia. The patient is afebrile. 4. Malfunctioning G-tube. Dr. Baird changed the G-tube, currently functioning well. 5. End-stage renal disease. Dialysis 3 times a week per Dr. Stringer. Arrange outpatient dialysis per case management. 6. Anemia. Follow up tomorrow's H and H. Transfuse p.r.n. 7. Dysphagia. Continue G-tube feeding. Maximum nutritional support. 8. Psychiatric disorder and danger to self. I started her on Depakote yesterday. Continue one-to-o ne sitter due to danger to self. 9. Discharge planning hopefully tomorrow. 10. Diabetes mellitus. Glucose levels are controlled. We will follow. Dictated By: DYLON HULL/MADAN Conf#: [id number] DID#: [id number]
--- NOTE | 2018-11-09 18:34 | NUR ---
END OF SHIFT Patient in no acute distress. Due medications given. GT bolus feeding given. Needs attended. Repositioned every 2 hours. continue 1:1 sitter for patient's safety. Will continue to monitor,
[2018-11-09 19:23] VITALS: BP 94/46; PULSE 75; RESP 16
[2018-11-10] VITALS (24 sets, daily range): BP systolic 103–206; BP diastolic 55–162; PULSE 60–116; RESP 16–20
[2018-11-10] MEDS: ACCU-CHEK XX SCH ×5 (00:15→20:41)
[2018-11-10] MEDS: LORAZEPAM 0.5 MG TAB GTB PRN ×2 (02:46→13:48)
[2018-11-10] MEDS: hydrOXYzine HCL 25 MG TAB GTB PRN (02:46)
--- NOTE | 2018-11-10 04:30 | NUR ---
hematoma called to room by William schofield and showed me the hematoma on her forehead. 2.5cm x 2.5cm. according to him the patient was able to get hold of the call light and hit her forehead. vs taken and recorded. ice pack applied. battery recharger came to room and notify md and wax room supervisor. battery recharger also notified daughter.
--- NOTE | 2018-11-10 04:40 | NUR ---
Went to patient's room and found RN and [employer] CONSULTANT at bedside, patient has a hematoma on her forehead. Per report, patient hit herself with the call light. No change in LOC. Dr. Perez was informed, no orders.
--- NOTE | 2018-11-10 04:50 | NUR ---
Abimael, Nuisance Wildlife Trapper was informed of the incident, stated he will come up to see the patient. He was informed that Dr. Perez did not give any orders.
--- NOTE | 2018-11-10 05:05 | NUR ---
Patient was seen by Abimael Guest Attendant.
--- NOTE | 2018-11-10 05:05 | NUR ---
Called patient's daughter, Alejandro. She was informed of patient's condition and she requested to speak with her mom. Alejandro was placed on hold so the call can be transferred but the line was disconnected. Called Alejandro back and was unable to contact her because 'this line is not accepting any calls at this time". Ed, AIRCRAFT MECHANIC ARMAMENT also called her back from patient's room and got the same message.
[2018-11-10] MEDS: LANSOPRAZOLE 30 MG CAP GTB SCH (06:06)
--- NOTE | 2018-11-10 07:56 | NUR ---
Pt scheduled to have dialysis today. Sitter at bedside. Per sitter and dialysis nurse, pt more agitated this morning, attempted to grab dialysis nurse and dialysis machine along with its tubings. Sitter at bedside trying to hold pt's arms but pt still very agitated, screaming, and unable to calm pt down. Dialysis nurse stated does not feel safe to start dialysis with pt constantly trying to grab tubings and the nurses and would not start dialysis unless pt is in restraints. Ish called but he's not in today. Received call from Andrea RAM and explained the situation. Andrea aware pt needs restraints and gave permission to call MD for order. MD Perez made aware, received order for brayden soft wrist restraints. Order received and carried out. Attempted to call daughter Markus [phone] to made her aware but phone not accepting calls at this time. Will try back again later.
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
[2018-11-10] MEDS: QUETIAPINE 25 MG TAB GTB SCH ×2 (08:39→20:39)
[2018-11-10] MEDS: FOLIC ACID 1 MG TAB GTB SCH (08:39)
[2018-11-10] MEDS: LINAGLIPTIN 5 MG TABLET G-TUBE SCH (08:39)
[2018-11-10] MEDS: SENNA TAB GTB SCH ×2 (08:39→20:42)
--- NOTE | 2018-11-10 08:39 | CONS ---
Date/Time of Note Date/Time of Note DATE: 11/10/18 TIME: 08:33 Assessment/Plan Assessment/Plan Hospital Course 1. Dysphagia, status post G-tube placement. 2. Malfunctioning G-tube. 3. Psychiatric disorder. 4. Hypertension. 5. End-stage renal disease. 6. Anemia. 7. Hypertension, which is optimized. 8. 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 PLAN: Continue tube feed bolus, diet as tolerated PEG care per floor protocol given acute increase in WBC and disoriented, would recommend ID consult per primary Result Diagram: 11/10/18 0450 11/10/18 0450 Results 24hrs Laboratory Tests Test 11/09/18 11:30 11/09/18 17:18 11/09/18 22:11 11/10/18 04:50 Bedside Glucose 180 135 160 White Blood Count 23.5 #H Red Blood Count 2.84 L Hemoglobin 8.0 L Hematocrit 23.9 L Mean Corpuscular Volume 84.2 Mean Corpuscular 28.2 L Hemoglobin Mean Corpuscular 33.5 Hemoglobin Concent Red Cell Distribution 16.0 H Width Platelet Count 347 Mean Platelet Volume 11.5 H Immature Granulocytes % 0.900 H Neutrophils % 87.2 H Lymphocytes % 4.2 L Monocytes % 5.8 Eosinophils % 1.7 Basophils % 0.2 Nucleated Red Blood 0.3 H Cells % Immature Granulocytes # 0.210 H Neutrophils # 20.5 H Lymphocytes # 1.0 Monocytes # 1.4 H Eosinophils # 0.4 Basophils # 0.0 Nucleated Red Blood 0.1 H Cells # Sodium Level 139 Potassium Level 3.6 Chloride Level 100 Carbon Dioxide Level 24 Anion Gap 15 H Blood Urea Nitrogen 80 H Creatinine 3.43 H Est Glomerular Filtrat Rate mL/min Glucose Level 244 #H Calcium Level 9.5 Phosphorus Level 2.7 Magnesium Level 2.4 Consultation Date/Type/Reason Admit Date/Time Oct 16, 2018 at 18:45 Initial Consult Date Type of Consult GI 24 HR Interval Summary Constitutional: disoriented Exam/Review of Systems Vital Signs Vitals Vital Signs Date Temp Pulse Resp B/P (MAP) Pulse Ox O2 O2 Flow FiO2 Time Delivery Rate 11/10/18 98.1 106 19 112/76 96 Room Air 04:20 (88) Intake and Output 11/09/18 11/09/18 11/10/18 1515:00 23:00 07:00 IntakeIntake Total 50 ml 500 ml 300 ml BalanceBalance 50 ml 500 ml 300 ml Exam Constitutional: frail Psych: confusion Head: normocephalic, atraumatic Eyes: nl conjunctiva, EOMI, nl lids ENMT: nl external ears & nose, nl lips & teeth, nl nasal mucosa & septum Neck: supple, non-tender Respiratory: clear to auscultation, normal air movement Cardiovascular: regular rate and rhythm, nl pulses Gastrointestinal: soft, non-tender, bowel sounds, other (PEG c/d/i) Medications Medications Current Medications Docusate Sodium (Colace Liquid Cup) 100 mg DAILY GTB Last administered on 11/09/18 08:51; Admin Dose 100 MG; Start 10/17/18 at 09:00 Ferrous Sulfate (Feosol Liquid Cup) 330 mg BID GTB Last administered on 11/09/18 22:03; Admin Dose 330 MG; Start 10/16/18 at 22:00 Folic Acid (Folic Acid) 1 mg DAILY GTB Last administered on 11/09/18 08:52; Admin Dose 1 MG; Start 10/17/18 at 09:00 Insulin Detemir (Levemir) 8 units DAILY@0800 SC Last administered on 10/17/18 08:40; Admin Dose 8 UNITS; Start 10/17/18 at 08:00; Status Hold Polyethylene Glycol (Miralax) 8.5 gm DAILY PRN GTB CONSTIPATION; Start 10/16/18 at 22:00 Multivit/Ca Carb/ B Cmplx/FA/Prenat (Kianna-Roque) 1 tab DAILY GTB Last administered on 11/09/18 08:52; Admin Dose 1 TAB; Start 10/17/18 at 09:00 Quetiapine Fumarate (Seroquel) 25 mg BID GTB Last administered on 11/09/18 22:03; Admin Dose 25 MG; Start 10/16/18 at 22:00 Linagliptin (Tradjenta) 5 mg DAILY G-TUBE Last administered on 11/09/18 08:52; Admin Dose 5 MG; Start 10/17/18 at 09:00 Diagnostic Test (Pha) (Accu-Chek) 1 ea AC MEALS AND BEDTIME XX Last administered on 11/09/18 21:00; Admin Dose 1 EA; Start 10/17/18 at 07:00 Senna (Senokot) 1 tab BID GTB Last administered on 11/09/18 08:53; Admin Dose 1 TAB; Start 10/16/18 at 22:00 Ondansetron HCl (Zofran Inj) 4 mg Q6H PRN IV NAUSEA AND/OR VOMITING; Start 10/16/18 at 22:00 Acetaminophen (Tylenol Liquid) 650 mg Q6 PRN GTB PAIN Last administered on 11/09/18 08:51; Admin Dose 650 MG; Start 10/16/18 at 22:00 Diagnostic Test (Pha) (Accu-Chek) 1 ea 02 XX Last administered on 11/02/18at 02:35; Admin Dose 1 EA; Start 10/17/18 at 02:00 Insulin Aspart (Novolog Insulin Pen) NOVOLOG *MODERATE* ALGORITHM WITH MEALS BEDTIME SC Last administered on 10/17/18at 17:48; Admin Dose 4 UNIT; Start 10/17/18 at 08:00; Status Hold Miscellaneous Information 1 ea NOTE XX ; Start 10/16/18 at 22:30 Glucose (Glutose) 15 gm Q15M PRN PO DECREASED GLUCOSE; Start 10/16/18 at 22:30 Glucose (Glutose) 22.5 gm Q15M PRN PO DECREASED GLUCOSE; Start 10/16/18 at 22:30 Dextrose (D50w Syringe) 25 ml Q15M PRN IV DECREASED GLUCOSE; Start 10/16/18 at 22:30 Dextrose (D50w Syringe) 50 ml Q15M PRN IV DECREASED GLUCOSE; Start 10/16/18 at 22:30 Glucagon (Glucagen) 1 mg Q15M PRN IM DECREASED GLUCOSE; Start 10/16/18 at 22:30 Glucose (Glutose) 15 gm Q15M PRN BUCCAL DECREASED GLUCOSE Last administered on 10/17/18at 21:33; Admin Dose 15 GM; Start 10/16/18 at 22:30 Hydroxyzine HCl (Atarax) 25 mg Q6H PRN GTB ITCHING Last administered on 11/10/18 02:46; Admin Dose 25 MG; Start 10/20/18 at 14:00 Calamine (Calamine Lotion) 1 applic BID PRN TOP itching; Start 10/20/18 at 14:00 Amlodipine Besylate (Norvasc) 5 mg BID GTB Last administered on 11/09/18 08:53; Admin Dose 5 MG; Start 10/20/18 at 21:00 Lansoprazole (Prevacid) 30 mg DAILY@06 GTB Last administered on 11/10/18 06:06; Admin Dose 30 MG; Start 10/21/18 at 06:00 Hydralazine HCl (Apresoline) 25 mg TID GTB Last administered on 11/09/18 08:53; Admin Dose 25 MG; Start 10/21/18 at 21:00 Metoprolol Tartrate (Lopressor) 50 mg BID GTB Last administered on 11/09/18 08:53; Admin Dose 50 MG; Start 10/21/18 at 21:00 Heparin Sodium (Porcine) (Heparin (1000 Units/ml)) 4,000 unit AFTER DIALYSIS CATHETER Last administered on 11/05/18 17:36; Admin Dose 4,000 UNIT; Start 10/21/18 at 19:00 Haloperidol (Haldol) 2 mg Q4H PRN IM AGITATION Last administered on 10/31/18 05:36; Admin Dose 2 MG; Start 10/26/18 at 00:30 Albumin Human 50 ml @ 100 mls/hr WITH DIALYSIS PRN IV SBP<90 Last administered on 10/29/18 12:34; Admin Dose 100 MLS/HR; Start 10/26/18 at 17:00 Sodium Chloride (NS) -To prime the dialy... DIRECTED FOR HD PRN IV SBP<90; Start 10/26/18 at 17:00 Daptomycin 230 mg/ Sodium Chloride 100 ml @ 200 mls/hr Q48H IVPB Last administered on 11/08/18 18:48; Admin Dose 200 MLS/HR; Start 10/29/18 at 16:00 Sodium Chloride (NS) -To prime the dialy... DIRECTED FOR HD PRN IV SBP<90; Start 11/03/18 at 15:30 Valproate Sodium (Depakene Liquid Cup) 125 mg TID PO Last administered on 11/09/18 22:03; Admin Dose 125 MG; Start 11/08/18 at 13:36 Lorazepam (Ativan) 0.5 mg Q8H PRN GTB ANXIETY Last administered on 1/2/19at 02:46; Admin Dose 0.5 MG; Start 11/09/18 at 15:00 VICTORINO PATEL MD Nov 10, 2018 08:39
[2018-11-10] MEDS: VALPROIC ACID LIQUID CUP 250 MG/5 ML CUP PO SCH ×3 (08:40→20:41)
[2018-11-10] MEDS: FERROUS SULFATE 60 MG/ML 5ML CUP GTB SCH ×2 (08:41→20:40)
[2018-11-10] MEDS: DOCUSATE SODIUM 10 MG/ML (10ML CUP) GTB SCH (08:43)
[2018-11-10] MEDS: METOPROLOL 50 MG TAB GTB SCH ×2 (08:47→20:40)
[2018-11-10] MEDS: AMLODIPINE 5 MG TAB GTB SCH ×2 (08:47→20:39)
[2018-11-10] MEDS: MULTIVIT/CA CARB/B CMPLX/FA TAB GTB SCH (08:48)
[2018-11-10] MEDS: HEPARIN 1000 UNITS/ML 10 ML INJ CATHETER SCH (12:04)
[2018-11-10] MEDS: HALOPERIDOL 5 MG INJ IM PRN (12:20)
--- NOTE | 2018-11-10 12:31 | CONS ---
Date/Time of Note Date/Time of Note DATE: 11/10/18 TIME: 12:29 Assessment/Plan Assessment/Plan Hospital Course Patient is very agitated today status post hemodialysis. No fevers overnight she is awake in no distress has a sitter at bedside. WBC today went up to 23.5 with neutrophils 87.2 bands 12, blood cultures were ordered and drawn chest x- ray ordered pending. Indwelling: Left chest permacath, PEG Antimicrobials: Daptomycin Physical examination: Chronically ill-appearing elderly woman who is awake, confused, in no distress. Head atraumatic normocephalic. Neck is supple. Chest rise symmetrical breath sounds diminished bases. Heart: S1-S2. Abdomen soft bowel sounds present extremities without edema Assessment: 1. Leukocytosis with severe agitation and mental status change, concern for nosocomial sepsis 2. Status post VRE bacteremia 2 to infected Pcath 3. Positive urinalysis on admission, urine culture came back negative 4. End-stage renal disease, hemodialysis dependent 5. Dementia 6. Failure to thrive 7. Diabetes 8. Anemia Plan: Patient is doing worse with mental status change and leukocytosis with bandemia, will discontinue daptomycin, start her on vancomycin, meropenem and empiric Flagyl and follow cultures and chest x-ray Discussed with staff at bedside Result Diagram: 11/10/18 0450 11/10/18 0450 Results 24hrs Laboratory Tests Test 11/09/18 17:18 11/09/18 22:11 11/10/18 04:50 11/10/18 08:37 Bedside Glucose 135 160 164 White Blood Count 23.5 #H Red Blood Count 2.84 L Hemoglobin 8.0 L Hematocrit 23.9 L Mean Corpuscular Volume 84.2 Mean Corpuscular 28.2 L Hemoglobin Mean Corpuscular 33.5 Hemoglobin Concent Red Cell Distribution 16.0 H Width Platelet Count 347 Mean Platelet Volume 11.5 H Immature Granulocytes % 0.900 H Neutrophils % 87.2 H Segmented Neutrophils 77 % (Manual) Band Neutrophils % 12 H (Manual) Lymphocytes % 4.2 L Lymphocytes % (Manual) 3 L Monocytes % 5.8 Monocytes % (Manual) 3 Eosinophils % 1.7 Eosinophils % (Manual) 2 Basophils % 0.2 Metamyelocytes % 2 H (manual) Myelocytes % (Manual) 1 H Nucleated Red Blood 2 H Cells % Immature Granulocytes # 0.210 H Neutrophils # 20.5 H Neutrophils # (Manual) 18.8 H Band Neutrophils # 2.8 H Lymphocytes (Manual) 0.7 L Lymphocytes # 1.0 Monocytes # 1.4 H Monocytes # (Manual) 0.7 Eosinophils # 0.4 Basophils # 0.0 Metamyelocytes # 0.4 H Myelocytes # 0.2 H Nucleated Red Blood 0.1 H Cells # Platelet Estimate NORMAL Giant Platelets 7 H Platelet Morphology @See below Comment Polychromasia 1+ Basophilic Stippling 1+ Anisocytosis 1+ Microcytosis 1+ Sodium Level 139 Potassium Level 3.6 Chloride Level 100 Carbon Dioxide Level 24 Anion Gap 15 H Blood Urea Nitrogen 80 H Creatinine 3.43 H Est Glomerular Filtrat Rate mL/min Glucose Level 244 #H Calcium Level 9.5 Phosphorus Level 2.7 Magnesium Level 2.4 Test 11/10/18 10:59 11/10/18 12:07 Lactic Acid Level 1.8 Bedside Glucose 136 Consultation Date/Type/Reason Admit Date/Time Oct 16, 2018 at 18:45 Initial Consult Date Type of Consult ID Exam/Review of Systems Vital Signs Vitals Vital Signs Date Temp Pulse Resp B/P (MAP) Pulse Ox O2 O2 Flow FiO2 Time Delivery Rate 11/10/18 83 11:01 11/10/18 20 184/147 92 Room Air 08:40 (159) 11/10/18 98.0 08:00 Intake and Output 11/09/18 11/09/18 11/10/18 1515:00 23:00 07:00 IntakeIntake Total 50 ml 500 ml 300 ml BalanceBalance 50 ml 500 ml 300 ml Medications Medications Current Medications Docusate Sodium (Colace Liquid Cup) 100 mg DAILY GTB Last administered on 11/10/18 08:43; Admin Dose 100 MG; Start 10/17/18 at 09:00 Ferrous Sulfate (Feosol Liquid Cup) 330 mg BID GTB Last administered on 11/10/18 08:41; Admin Dose 330 MG; Start 10/16/18 at 22:00 Folic Acid (Folic Acid) 1 mg DAILY GTB Last administered on 11/10/18 08:39; Admin Dose 1 MG; Start 10/17/18 at 09:00 Insulin Detemir (Levemir) 8 units DAILY@0800 SC Last administered on 10/17/18at 08:40; Admin Dose 8 UNITS; Start 10/17/18 at 08:00; Status Hold Polyethylene Glycol (Miralax) 8.5 gm DAILY PRN GTB CONSTIPATION; Start 10/16/18 at 22:00 Multivit/Ca Carb/ B Cmplx/FA/Prenat (Kianna-Roque) 1 tab DAILY GTB Last administered on 11/10/18 08:48; Admin Dose 1 TAB; Start 10/17/18 at 09:00 Quetiapine Fumarate (Seroquel) 25 mg BID GTB Last administered on 11/10/18 08:39; Admin Dose 25 MG; Start 10/16/18 at 22:00 Linagliptin (Tradjenta) 5 mg DAILY G-TUBE Last administered on 11/10/18 08:39; Admin Dose 5 MG; Start 10/17/18 at 09:00 Diagnostic Test (Pha) (Accu-Chek) 1 ea AC MEALS AND BEDTIME XX Last administered on 11/09/18 21:00; Admin Dose 1 EA; Start 10/17/18 at 07:00 Senna (Senokot) 1 tab BID GTB Last administered on 11/10/18 08:39; Admin Dose 1 TAB; Start 10/16/18 at 22:00 Ondansetron HCl (Zofran Inj) 4 mg Q6H PRN IV NAUSEA AND/OR VOMITING; Start 10/16/18 at 22:00 Acetaminophen (Tylenol Liquid) 650 mg Q6 PRN GTB PAIN Last administered on 11/09/18 08:51; Admin Dose 650 MG; Start 10/16/18 at 22:00 Diagnostic Test (Pha) (Accu-Chek) 1 ea 02 XX Last administered on 11/02/18at 02:35; Admin Dose 1 EA; Start 10/17/18 at 02:00 Insulin Aspart (Novolog Insulin Pen) NOVOLOG *MODERATE* ALGORITHM WITH MEALS BEDTIME SC Last administered on 10/17/18at 17:48; Admin Dose 4 UNIT; Start 10/17/18 at 08:00; Status Hold Miscellaneous Information 1 ea NOTE XX ; Start 10/16/18 at 22:30 Glucose (Glutose) 15 gm Q15M PRN PO DECREASED GLUCOSE; Start 10/16/18 at 22:30 Glucose (Glutose) 22.5 gm Q15M PRN PO DECREASED GLUCOSE; Start 10/16/18 at 22:30 Dextrose (D50w Syringe) 25 ml Q15M PRN IV DECREASED GLUCOSE; Start 10/16/18 at 22:30 Dextrose (D50w Syringe) 50 ml Q15M PRN IV DECREASED GLUCOSE; Start 10/16/18 at 22:30 Glucagon (Glucagen) 1 mg Q15M PRN IM DECREASED GLUCOSE; Start 10/16/18 at 22:30 Glucose (Glutose) 15 gm Q15M PRN BUCCAL DECREASED GLUCOSE Last administered on 10/17/18 21:33; Admin Dose 15 GM; Start 10/16/18 at 22:30 Hydroxyzine HCl (Atarax) 25 mg Q6H PRN GTB ITCHING Last administered on 11/10/18 02:46; Admin Dose 25 MG; Start 10/20/18 at 14:00 Calamine (Calamine Lotion) 1 applic BID PRN TOP itching; Start 10/20/18 at 14:00 Amlodipine Besylate (Norvasc) 5 mg BID GTB Last administered on 11/09/18 08:53; Admin Dose 5 MG; Start 10/20/18 at 21:00 Lansoprazole (Prevacid) 30 mg DAILY@06 GTB Last administered on 11/10/18 06:06; Admin Dose 30 MG; Start 10/21/18 at 06:00 Hydralazine HCl (Apresoline) 25 mg TID GTB Last administered on 11/09/18 08:53; Admin Dose 25 MG; Start 10/21/18 at 21:00 Metoprolol Tartrate (Lopressor) 50 mg BID GTB Last administered on 11/09/18 08:53; Admin Dose 50 MG; Start 10/21/18 at 21:00 Heparin Sodium (Porcine) (Heparin (1000 Units/ml)) 4,000 unit AFTER DIALYSIS CATHETER Last administered on 11/10/18 12:04; Admin Dose 4,000 UNIT; Start 10/21/18 at 19:00 Haloperidol (Haldol) 2 mg Q4H PRN IM AGITATION Last administered on 11/10/18 12:20; Admin Dose 2 MG; Start 10/26/18 at 00:30 Albumin Human 50 ml @ 100 mls/hr WITH DIALYSIS PRN IV SBP<90 Last administered on 10/29/18at 12:34; Admin Dose 100 MLS/HR; Start 10/26/18 at 17:00 Sodium Chloride (NS) -To prime the dialy... DIRECTED FOR HD PRN IV SBP<90; Start 10/26/18 at 17:00 Sodium Chloride (NS) -To prime the dialy... DIRECTED FOR HD PRN IV SBP<90; Start 11/03/18 at 15:30 Valproate Sodium (Depakene Liquid Cup) 125 mg TID PO Last administered on 11/10/18at 08:40; Admin Dose 125 MG; Start 11/08/18 at 13:36 Lorazepam (Ativan) 0.5 mg Q8H PRN GTB ANXIETY Last administered on 11/10/18at 02:46; Admin Dose 0.5 MG; Start 11/09/18 at 15:00 Metronidazole (Flagyl) 500 mg Q8 GTB ; Start 11/10/18 at 14:00 PHYLICIA HOLCOMB NP Nov 10, 2018 12:31
[2018-11-10] MEDS ORDERED: VANCOMYCIN IV PER PHARMACY XX SCH (13:00)
--- NOTE | 2018-11-10 13:00 | NUR ---
HD is finished, pt is even more agitated, will not stop reaching her arms and legs out, screaming. MD Perez was at bedside and agreed pt should continue brayden soft wrist restraints as well as sitter 1:1. Family finally came in and made her aware of what happened. She is trying to calm pt now. Will continue to monitor pt and will d/c restraint if pt's behavior permits.
[2018-11-10] MEDS ORDERED: VANCOMYCIN 1 GM 250 ML IVPB SCH (13:30)
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
[2018-11-10] MEDS: ACETAMINOPHEN 650MG/20.3ML CUP GTB PRN (14:22)
[2018-11-10] MEDS ORDERED: MEROPENEM 500MG/50 ML (PMX) 50 ML IVPB SCH (14:30)
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
--- NOTE | 2018-11-10 17:04 | CONS ---
Date/Time of Note Date/Time of Note DATE: 11/10/18 TIME: 17:03 Assessment/Plan Assessment/Plan Hospital Course 83 y/o with This is an 83-year-old female with: 1. Hypotension, could be secondary to sepsis as the patient has positive bacteremia/urinary tract infection VRE bactermia. s/p permcath removal and new placement The patient was continued on blood pressure medicines aggressively 2. Altered level of consciousness, likely secondary to metabolic encephalopathy, secondary to low blood pressures. vs Vascular dementia 3. Mild hyponatremia. 4. End-stage renal disease on hemodialysis. 5. Diabetes. 6. Dysphagia, status post G-tube feeding. 7. History of vascular dementia. 8. Hypertension. 9. History of falls. 10. Anemia. 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 leukocytosis > broadened coverage - hold bp meds before HD -Appreciate vascular/ID consultation -Renally dose all meds Result Diagram: 11/10/18 0450 11/10/18 0450 Results 24hrs Laboratory Tests Test 11/09/18 17:18 11/09/18 22:11 11/10/18 04:50 11/10/18 08:37 Bedside Glucose 135 160 164 White Blood Count 23.5 #H Red Blood Count 2.84 L Hemoglobin 8.0 L Hematocrit 23.9 L Mean Corpuscular Volume 84.2 Mean Corpuscular 28.2 L Hemoglobin Mean Corpuscular 33.5 Hemoglobin Concent Red Cell Distribution 16.0 H Width Platelet Count 347 Mean Platelet Volume 11.5 H Immature Granulocytes % 0.900 H Neutrophils % 87.2 H Segmented Neutrophils 77 % (Manual) Band Neutrophils % 12 H (Manual) Lymphocytes % 4.2 L Lymphocytes % (Manual) 3 L Monocytes % 5.8 Monocytes % (Manual) 3 Eosinophils % 1.7 Eosinophils % (Manual) 2 Basophils % 0.2 Metamyelocytes % 2 H (manual) Myelocytes % (Manual) 1 H Nucleated Red Blood 2 H Cells % Immature Granulocytes # 0.210 H Neutrophils # 20.5 H Neutrophils # (Manual) 18.8 H Band Neutrophils # 2.8 H Lymphocytes (Manual) 0.7 L Lymphocytes # 1.0 Monocytes # 1.4 H Monocytes # (Manual) 0.7 Eosinophils # 0.4 Basophils # 0.0 Metamyelocytes # 0.4 H Myelocytes # 0.2 H Nucleated Red Blood 0.1 H Cells # Platelet Estimate NORMAL Giant Platelets 7 H Platelet Morphology @See below Comment Polychromasia 1+ Basophilic Stippling 1+ Anisocytosis 1+ Microcytosis 1+ Sodium Level 139 Potassium Level 3.6 Chloride Level 100 Carbon Dioxide Level 24 Anion Gap 15 H Blood Urea Nitrogen 80 H Creatinine 3.43 H Est Glomerular Filtrat Rate mL/min Glucose Level 244 #H Calcium Level 9.5 Phosphorus Level 2.7 Magnesium Level 2.4 Test 11/10/18 10:59 11/10/18 12:07 Lactic Acid Level 1.8 Bedside Glucose 136 Consultation Date/Type/Reason Admit Date/Time Oct 16, 2018 at 18:45 Initial Consult Date 24 HR Interval Summary Free Text/Dictation pt was much more combatibve today Exam/Review of Systems Vital Signs Vitals Vital Signs Date Temp Pulse Resp B/P (MAP) Pulse Ox O2 O2 Flow FiO2 Time Delivery Rate 11/10/18 98.2 105 19 114/63 94 Room Air 16:00 (80) Intake and Output 11/09/18 11/09/18 11/10/18 1515:00 23:00 07:00 IntakeIntake Total 50 ml 500 ml 300 ml BalanceBalance 50 ml 500 ml 300 ml Exam Neck: supple Respiratory: diminished breath sounds Cardiovascular: regular rate and rhythm Gastrointestinal: soft Musculoskeletal: nl extremities to inspection Extremities: normal pulses Medications Medications Current Medications Docusate Sodium (Colace Liquid Cup) 100 mg DAILY GTB Last administered on 11/10/18 08:43; Admin Dose 100 MG; Start 10/17/18 at 09:00 Ferrous Sulfate (Feosol Liquid Cup) 330 mg BID GTB Last administered on 11/10/18 08:41; Admin Dose 330 MG; Start 10/16/18 at 22:00 Folic Acid (Folic Acid) 1 mg DAILY GTB Last administered on 11/10/18 08:39; Admin Dose 1 MG; Start 10/17/18 at 09:00 Insulin Detemir (Levemir) 8 units DAILY@0800 SC Last administered on 10/17/18at 08:40; Admin Dose 8 UNITS; Start 10/17/18 at 08:00; Status Hold Polyethylene Glycol (Miralax) 8.5 gm DAILY PRN GTB CONSTIPATION; Start 10/16/18 at 22:00 Multivit/Ca Carb/ B Cmplx/FA/Prenat (Kianna-Roque) 1 tab DAILY GTB Last administered on 11/10/18 08:48; Admin Dose 1 TAB; Start 10/17/18 at 09:00 Linagliptin (Tradjenta) 5 mg DAILY G-TUBE Last administered on 11/10/18 08:39; Admin Dose 5 MG; Start 10/17/18 at 09:00 Diagnostic Test (Pha) (Accu-Chek) 1 ea AC MEALS AND BEDTIME XX Last administered on 11/09/18 21:00; Admin Dose 1 EA; Start 10/17/18 at 07:00 Senna (Senokot) 1 tab BID GTB Last administered on 11/10/18 08:39; Admin Dose 1 TAB; Start 10/16/18 at 22:00 Ondansetron HCl (Zofran Inj) 4 mg Q6H PRN IV NAUSEA AND/OR VOMITING; Start 10/16/18 at 22:00 Acetaminophen (Tylenol Liquid) 650 mg Q6 PRN GTB PAIN Last administered on 11/10/18 14:22; Admin Dose 650 MG; Start 10/16/18 at 22:00 Diagnostic Test (Pha) (Accu-Chek) 1 ea 02 XX Last administered on 11/02/18at 02:35; Admin Dose 1 EA; Start 10/17/18 at 02:00 Insulin Aspart (Novolog Insulin Pen) NOVOLOG *MODERATE* ALGORITHM WITH MEALS BEDTIME SC Last administered on 10/17/18at 17:48; Admin Dose 4 UNIT; Start 10/17/18 at 08:00; Status Hold Miscellaneous Information 1 ea NOTE XX ; Start 10/16/18 at 22:30 Glucose (Glutose) 15 gm Q15M PRN PO DECREASED GLUCOSE; Start 10/16/18 at 22:30 Glucose (Glutose) 22.5 gm Q15M PRN PO DECREASED GLUCOSE; Start 10/16/18 at 22:30 Dextrose (D50w Syringe) 25 ml Q15M PRN IV DECREASED GLUCOSE; Start 10/16/18 at 22:30 Dextrose (D50w Syringe) 50 ml Q15M PRN IV DECREASED GLUCOSE; Start 10/16/18 at 22:30 Glucagon (Glucagen) 1 mg Q15M PRN IM DECREASED GLUCOSE; Start 10/16/18 at 22:30 Glucose (Glutose) 15 gm Q15M PRN BUCCAL DECREASED GLUCOSE Last administered on 10/17/18at 21:33; Admin Dose 15 GM; Start 10/16/18 at 22:30 Hydroxyzine HCl (Atarax) 25 mg Q6H PRN GTB ITCHING Last administered on 11/10/18 02:46; Admin Dose 25 MG; Start 10/20/18 at 14:00 Calamine (Calamine Lotion) 1 applic BID PRN TOP itching; Start 10/20/18 at 14:00 Amlodipine Besylate (Norvasc) 5 mg BID GTB Last administered on 11/09/18 08:53; Admin Dose 5 MG; Start 10/20/18 at 21:00 Lansoprazole (Prevacid) 30 mg DAILY@06 GTB Last administered on 11/10/18 06:06; Admin Dose 30 MG; Start 10/21/18 at 06:00 Hydralazine HCl (Apresoline) 25 mg TID GTB Last administered on 11/10/18 12:56; Admin Dose 25 MG; Start 10/21/18 at 21:00 Metoprolol Tartrate (Lopressor) 50 mg BID GTB Last administered on 11/09/18 08:53; Admin Dose 50 MG; Start 10/21/18 at 21:00 Heparin Sodium (Porcine) (Heparin (1000 Units/ml)) 4,000 unit AFTER DIALYSIS CATHETER Last administered on 11/10/18 12:04; Admin Dose 4,000 UNIT; Start 10/21/18 at 19:00 Haloperidol (Haldol) 2 mg Q4H PRN IM AGITATION Last administered on 11/10/18 12:20; Admin Dose 2 MG; Start 10/26/18 at 00:30 Albumin Human 50 ml @ 100 mls/hr WITH DIALYSIS PRN IV SBP<90 Last administered on 10/29/18at 12:34; Admin Dose 100 MLS/HR; Start 10/26/18 at 17:00 Sodium Chloride (NS) -To prime the dialy... DIRECTED FOR HD PRN IV SBP<90; Start 10/26/18 at 17:00 Sodium Chloride (NS) -To prime the dialy... DIRECTED FOR HD PRN IV SBP<90; Start 11/03/18 at 15:30 Valproate Sodium (Depakene Liquid Cup) 125 mg TID PO Last administered on 11/10/18at 12:56; Admin Dose 125 MG; Start 11/08/18 at 13:36 Lorazepam (Ativan) 0.5 mg Q8H PRN GTB ANXIETY Last administered on 11/10/18at 13:48; Admin Dose 0.5 MG; Start 11/09/18 at 15:00 Metronidazole (Flagyl) 500 mg Q8 GTB ; Start 11/10/18 at 14:00 Vancomycin HCl (Vanco Iv Per Pharmacy) VANCOMYCIN PER PHARMACY PER PROTOCOL XX ; Start 11/10/18 at 13:00 Meropenem/Sodium Chloride 50 ml @ 100 mls/hr DAILY@2000 IVPB ; Start 11/10/18 at 14:30 Vancomycin HCl 250 ml @ 125 mls/hr ONCE IVPB Last administered on 11/10/18at 13:20; Admin Dose 125 MLS/HR; Start 11/10/18 at 13:30; Stop 11/10/18 at 20:00 Quetiapine Fumarate (Seroquel) 50 mg BID GTB ; Start 11/10/18 at 21:00 JOSE RAUL ANDREWS MD Nov 10, 2018 17:04
--- NOTE | 2018-11-10 17:26 | PSY ---
Date/Time of Note Date/Time of Note DATE: 11/10/18 TIME: 17:25 Psychiatric Subjective Eval Subjective Evaluation Chief Complaint: bib ra from dialysis, did not recieve dialysis, here for weakness History of present illness Patient is an 83-year-old [place] female, with history of diabetes mellitus type 2, hypertension, vascular dementia end-stage renal disease on dialysis. The patient is disorganized and confused very agitated. Daughter at the bedside, states patient gets increasingly agitated when Haldol is given an patient's da ughter demanded that Haldol be discontinued Past psychiatric history History of dementia Hospitalization: no Medical history Problems Medical Problems: (1) Acute weakness Status: Acute (2) Altered mental status Status: Acute (3) Missed dialysis Status: Acute Allergies: Coded Allergies: No Known Allergy (Unverified , 10/16/18) Substance Abuse Substance abuse history: No Prior substance abuse treatmen: No Social History Marital status: other DPA/Conservatorship: No Psychiatric Objective Eval Review of Systems: Review of Systems: Not Applicable Physical Examination: Physical Examination: Not Applicable Appetite: Adequate Energy: Adequate Interest: Adequate Mental Status Examination: Appearance: Poor Hygiene Eye Contact: Fair Psychomotor Activity: Agitated Behavior: Agitated Speech: Disorganized AFFECT: Constricted Mood: Anxious Though Process: Illogical Orientation: x2 Insight: Impared Judgement: Impared Attention Span: Distractible Laboratory Results Laboratory Tests Test 11/08/18 17:46 11/08/18 21:22 11/09/18 08:30 11/09/18 11:30 Bedside Glucose 199 mg/dL 160 mg/dL 134 mg/dL 180 mg/dL Test 11/09/18 17:18 11/09/18 22:11 11/10/18 04:50 11/10/18 08:37 Bedside Glucose 135 mg/dL 160 mg/dL 164 mg/dL White Blood Count 23.5 10^3/ul Red Blood Count 2.84 10^6/ul Hemoglobin 8.0 g/dl Hematocrit 23.9 % Mean Corpuscular 84.2 fl Volume Mean Corpuscular 28.2 pg Hemoglobin Mean Corpuscular 33.5 g/dl Hemoglobin Concent Red Cell 16.0 % Distribution Width Platelet Count 347 10^3/UL Mean Platelet 11.5 fl Volume Immature 0.900 % Granulocytes % Neutrophils % 87.2 % Segmented 77 % Neutrophils % (Manual) Band Neutrophils % 12 % (Manual) Lymphocytes % 4.2 % Lymphocytes % 3 % (Manual) Monocytes % 5.8 % Monocytes % 3 % (Manual) Eosinophils % 1.7 % Eosinophils % 2 % (Manual) Basophils % 0.2 % Metamyelocytes % 2 % (manual) Myelocytes % 1 % (Manual) Nucleated Red 2 % Blood Cells % Immature 0.210 10^3/ul Granulocytes # Neutrophils # 20.5 10^3/ul Neutrophils # 18.8 10^3/ul (Manual) Band Neutrophils # 2.8 10^3/ul Lymphocytes 0.7 10^3/ul (Manual) Lymphocytes # 1.0 10^3/ul Monocytes # 1.4 10^3/ul Monocytes # 0.7 10^3/ul (Manual) Eosinophils # 0.4 10^3/ul Basophils # 0.0 10^3/ul Metamyelocytes # 0.4 10^3/ul Myelocytes # 0.2 10^3/ul Nucleated Red 0.1 10^3/ul Blood Cells # Platelet Estimate NORMAL Giant Platelets 7 % Platelet @See below Morphology Comment Polychromasia 1+ Basophilic 1+ Stippling Anisocytosis 1+ Microcytosis 1+ Sodium Level 139 mmol/L Potassium Level 3.6 mmol/L Chloride Level 100 mmol/L Carbon Dioxide 24 mmol/L Level Anion Gap 15 Blood Urea 80 mg/dl Nitrogen Creatinine 3.43 mg/dl Est Glomerular mL/min Filtrat Rate mL/min Glucose Level 244 mg/dl Calcium Level 9.5 mg/dl Phosphorus Level 2.7 mg/dl Magnesium Level 2.4 mg/dl Test 11/10/18 10:59 11/10/18 12:07 Lactic Acid Level 1.8 mmol/L Bedside Glucose 136 mg/dL Assessment and Plan Recommendation/Plan Discharge Disposition: Other Legal Status: Voluntary (Does not meets criteria for 5150 hold) MARELY SAMANO NP Nov 10, 2018 17:26
--- NOTE | 2018-11-10 18:54 | NUR ---
END OF SHIFT SUMMARY Pt alert and oriented, all due meds given as ordered. Pt very aggressive and agitated today. MD was notified ordered to give the PRN Haldol. Ativan later given. Pt was very combative throughout dialysis and after, kicking, scratching, spitting. MD, munitions worker and family made aware. Pt continues with 1:1 sitter and soft limb restraints to upper extremities. Radiology able to do chest x-ray after second attempt. Pt had sepsis risk today, MD notified with new orders. Orders noted and carried out. Q2hrs monitoring and assessing was done. GT bolus feeding administered. Site intact. Accu-checks done. Will continue to monitor pt and document accordingly. Will endorse new plan of care to oncoming shift.
[2018-11-10] MEDS: metroNIDAZOLE 500 MG TAB GTB SCH (19:10)
--- NOTE | 2018-11-10 22:00 | NUR ---
PER PHARMACIST MIN, GIVE THE FLAGYL AT 0500AM CATCH UP TIME DUE TO THE PREVIOUS SHIFT LATE ADMINISTRATION.
[2018-11-11] VITALS (10 sets, daily range): BP systolic 100–141; BP diastolic 50–78; PULSE 69–85; RESP 18
[2018-11-11] MEDS: ACCU-CHEK XX SCH ×5 (02:00→21:00)
[2018-11-11] MEDS: metroNIDAZOLE 500 MG TAB GTB SCH ×3 (05:12→14:07)
[2018-11-11] MEDS: LANSOPRAZOLE 30 MG CAP GTB SCH (05:12)
--- NOTE | 2018-11-11 05:52 | NUR ---
SHIFT REPORT: NO SIGNIFICANT CHANGE OF CONDITION WAS NOTED THIS SHIFT. PATIENT IS CONTINUE ON SOFT WRIST RESTRAINT PROTECTION FOR SELF PULLING OUT OF IV'S AND TUBING. CONTINUE ALSO ON 1:1 SITTER. PATIENT IS HIGH RISK FOR FALL. DUE MEDICATIONS GIVEN VIA GTUBE. ALL NEEDS MET AND ATTENDED. WILL CONTINUE TO MONITOR.
[2018-11-11] MEDS: MULTIVIT/CA CARB/B CMPLX/FA TAB GTB SCH (09:25)
[2018-11-11] MEDS: LINAGLIPTIN 5 MG TABLET G-TUBE SCH (09:25)
[2018-11-11] MEDS: FERROUS SULFATE 60 MG/ML 5ML CUP GTB SCH ×2 (09:26→21:43)
[2018-11-11] MEDS: AMLODIPINE 5 MG TAB GTB SCH ×2 (09:26→21:45)
[2018-11-11] MEDS: QUETIAPINE 25 MG TAB GTB SCH ×2 (09:27→21:45)
[2018-11-11] MEDS: METOPROLOL 50 MG TAB GTB SCH ×2 (09:27→21:45)
[2018-11-11] MEDS: SENNA TAB GTB SCH ×2 (09:27→21:45)
[2018-11-11] MEDS: FOLIC ACID 1 MG TAB GTB SCH (09:28)
[2018-11-11] MEDS: VALPROIC ACID LIQUID CUP 250 MG/5 ML CUP PO SCH ×3 (09:29→21:44)
[2018-11-11] MEDS: DOCUSATE SODIUM 10 MG/ML (10ML CUP) GTB SCH (09:52)
--- NOTE | 2018-11-11 14:47 | CONS ---
Date/Time of Note Date/Time of Note DATE: 11/11/18 TIME: 14:46 Assessment/Plan Assessment/Plan Hospital Course Patient looks comfortable no fevers overnight WBC today 8.9 no shift no bands Blood cultures since yesterday negative Chest x-ray from yesterday revealed no evidence for active cardiopulmonary disease Indwelling: Left chest permacath, PEG Antimicrobials: Vancomycin, meropenem, Flagyl Physical examination: Chronically ill-appearing elderly woman who is awake, confused, in no distress. Head atraumatic normocephalic. Neck is supple. Chest rise symmetrical breath sounds diminished bases. Heart: S1-S2. Abdomen soft bowel sounds present extremities without edema Assessment: 1. Status post leukocytosis with severe agitation and mental status change 2. Status post VRE bacteremia 2 to infected Pcath 3. Positive urinalysis on admission, urine culture came back negative 4. End-stage renal disease, hemodialysis dependent 5. Dementia 6. Failure to thrive 7. Diabetes 8. Anemia Plan: Stable, cultures negative, chest x-ray negative, WBC normalized, no vomiting, no diarrhea, DC antibiotics and observe Discussed with staff at bedside Result Diagram: 11/11/18 0547 11/11/18 0547 Results 24hrs Laboratory Tests Test 11/10/18 17:57 11/10/18 20:37 11/11/18 05:47 11/11/18 08:08 Bedside Glucose 136 150 133 White Blood Count 8.9 # Red Blood Count 2.60 L Hemoglobin 7.2 L Hematocrit 22.2 L Mean Corpuscular Volume 85.4 Mean Corpuscular 27.7 L Hemoglobin Mean Corpuscular 32.4 Hemoglobin Concent Red Cell Distribution 16.1 H Width Platelet Count 295 Mean Platelet Volume 11.8 H Immature Granulocytes % 0.600 H Neutrophils % 72.9 Lymphocytes % 8.2 L Monocytes % 10.6 Eosinophils % 7.2 H Basophils % 0.5 Nucleated Red Blood 0.3 H Cells % Immature Granulocytes # 0.050 H Neutrophils # 6.5 Lymphocytes # 0.7 L Monocytes # 0.9 Eosinophils # 0.6 H Basophils # 0.0 Nucleated Red Blood 0.0 Cells # Sodium Level 143 Potassium Level 4.4 Chloride Level 101 Carbon Dioxide Level 30 Anion Gap 12 Blood Urea Nitrogen 38 #H Creatinine 2.34 #H Est Glomerular Filtrat Rate mL/min Glucose Level 151 Calcium Level 9.7 Phosphorus Level 2.6 Magnesium Level 2.4 Total Bilirubin 0.7 Direct Bilirubin 0.00 Indirect Bilirubin 0.7 Aspartate Amino 44 Transf (AST/SGOT) Alanine 23 Aminotransferase (ALT/SG PT) Alkaline Phosphatase 81 Total Protein 7.1 Albumin 4.0 Globulin 3.10 Albumin/Globulin Ratio 1.29 Test 11/11/18 13:00 Bedside Glucose 132 Consultation Date/Type/Reason Admit Date/Time Oct 16, 2018 at 18:45 Initial Consult Date Type of Consult ID Exam/Review of Systems Vital Signs Vitals Vital Signs Date Temp Pulse Resp B/P (MAP) Pulse Ox O2 O2 Flow FiO2 Time Delivery Rate 11/11/18 98.4 69 18 100/50 99 Room Air 14:12 (67) Intake and Output 11/10/18 11/10/18 11/11/18 1515:00 23:00 07:00 IntakeIntake Total 60 ml 1053 ml 50 ml OutputOutput Total 400 ml BalanceBalance -340 ml 1053 ml 50 ml Medications Medications Current Medications Docusate Sodium (Colace Liquid Cup) 100 mg DAILY GTB Last administered on 11/11/18 09:52; Admin Dose 100 MG; Start 10/17/18 at 09:00 Ferrous Sulfate (Feosol Liquid Cup) 330 mg BID GTB Last administered on 11/11/18 09:26; Admin Dose 330 MG; Start 10/16/18 at 22:00 Folic Acid (Folic Acid) 1 mg DAILY GTB Last administered on 11/11/18 09:28; Admin Dose 1 MG; Start 10/17/18 at 09:00 Insulin Detemir (Levemir) 8 units DAILY@0800 SC Last administered on 10/17/18at 08:40; Admin Dose 8 UNITS; Start 10/17/18 at 08:00; Status Hold Polyethylene Glycol (Miralax) 8.5 gm DAILY PRN GTB CONSTIPATION; Start 10/16/18 at 22:00 Multivit/Ca Carb/ B Cmplx/FA/Prenat (Kianna-Roque) 1 tab DAILY GTB Last administered on 11/11/18 09:25; Admin Dose 1 TAB; Start 10/17/18 at 09:00 Linagliptin (Tradjenta) 5 mg DAILY G-TUBE Last administered on 11/11/18 09:25; Admin Dose 5 MG; Start 10/17/18 at 09:00 Diagnostic Test (Pha) (Accu-Chek) 1 ea AC MEALS AND BEDTIME XX Last administered on 11/11/18 11:30; Admin Dose 1 EA; Start 10/17/18 at 07:00 Senna (Senokot) 1 tab BID GTB Last administered on 11/11/18 09:27; Admin Dose 1 TAB; Start 10/16/18 at 22:00 Ondansetron HCl (Zofran Inj) 4 mg Q6H PRN IV NAUSEA AND/OR VOMITING; Start 10/16/18 at 22:00 Acetaminophen (Tylenol Liquid) 650 mg Q6 PRN GTB PAIN Last administered on 11/10/18 14:22; Admin Dose 650 MG; Start 10/16/18 at 22:00 Diagnostic Test (Pha) (Accu-Chek) 1 ea 02 XX Last administered on 11/02/18at 02:35; Admin Dose 1 EA; Start 10/17/18 at 02:00 Insulin Aspart (Novolog Insulin Pen) NOVOLOG *MODERATE* ALGORITHM WITH MEALS BEDTIME SC Last administered on 10/17/18 17:48; Admin Dose 4 UNIT; Start 10/17/18 at 08:00; Status Hold Miscellaneous Information 1 ea NOTE XX ; Start 10/16/18 at 22:30 Glucose (Glutose) 15 gm Q15M PRN PO DECREASED GLUCOSE; Start 10/16/18 at 22:30 Glucose (Glutose) 22.5 gm Q15M PRN PO DECREASED GLUCOSE; Start 10/16/18 at 22:30 Dextrose (D50w Syringe) 25 ml Q15M PRN IV DECREASED GLUCOSE; Start 10/16/18 at 22:30 Dextrose (D50w Syringe) 50 ml Q15M PRN IV DECREASED GLUCOSE; Start 10/16/18 at 22:30 Glucagon (Glucagen) 1 mg Q15M PRN IM DECREASED GLUCOSE; Start 10/16/18 at 22:30 Glucose (Glutose) 15 gm Q15M PRN BUCCAL DECREASED GLUCOSE Last administered on 10/17/18at 21:33; Admin Dose 15 GM; Start 10/16/18 at 22:30 Hydroxyzine HCl (Atarax) 25 mg Q6H PRN GTB ITCHING Last administered on 11/10/18 02:46; Admin Dose 25 MG; Start 10/20/18 at 14:00 Calamine (Calamine Lotion) 1 applic BID PRN TOP itching; Start 10/20/18 at 14:00 Amlodipine Besylate (Norvasc) 5 mg BID GTB Last administered on 11/11/18 09:26; Admin Dose 5 MG; Start 10/20/18 at 21:00 Lansoprazole (Prevacid) 30 mg DAILY@06 GTB Last administered on 11/11/18 05:12; Admin Dose 30 MG; Start 10/21/18 at 06:00 Hydralazine HCl (Apresoline) 25 mg TID GTB Last administered on 11/11/18 09:52; Admin Dose 25 MG; Start 10/21/18 at 21:00 Metoprolol Tartrate (Lopressor) 50 mg BID GTB Last administered on 11/11/18 09:27; Admin Dose 50 MG; Start 10/21/18 at 21:00 Heparin Sodium (Porcine) (Heparin (1000 Units/ml)) 4,000 unit AFTER DIALYSIS CATHETER Last administered on 11/10/18 12:04; Admin Dose 4,000 UNIT; Start 12/22/17 at 19:00 Haloperidol (Haldol) 2 mg Q4H PRN IM AGITATION Last administered on 11/10/18 12:20; Admin Dose 2 MG; Start 10/26/18 at 00:30 Albumin Human 50 ml @ 100 mls/hr WITH DIALYSIS PRN IV SBP<90 Last administered on 10/29/18at 12:34; Admin Dose 100 MLS/HR; Start 10/26/18 at 17:00 Sodium Chloride (NS) -To prime the dialy... DIRECTED FOR HD PRN IV SBP<90; Start 10/26/18 at 17:00 Sodium Chloride (NS) -To prime the dialy... DIRECTED FOR HD PRN IV SBP<90; Start 11/03/18 at 15:30 Valproate Sodium (Depakene Liquid Cup) 125 mg TID PO Last administered on 11/11/18 09:29; Admin Dose 125 MG; Start 11/08/18 at 13:36 Lorazepam (Ativan) 0.5 mg Q8H PRN GTB ANXIETY Last administered on 1/2/19at 13:48; Admin Dose 0.5 MG; Start 11/09/18 at 15:00 Metronidazole (Flagyl) 500 mg Q8 GTB Last administered on 11/11/18at 14:07; Admin Dose 500 MG; Start 11/10/18 at 14:00 Vancomycin HCl (Vanco Iv Per Pharmacy) VANCOMYCIN PER PHARMACY PER PROTOCOL XX ; Start 11/10/18 at 13:00 Meropenem/Sodium Chloride 50 ml @ 100 mls/hr DAILY@2000 IVPB Last administered on 11/10/18at 17:52; Admin Dose 100 MLS/HR; Start 11/10/18 at 14:30 Quetiapine Fumarate (Seroquel) 50 mg BID GTB Last administered on 11/11/18at 09:27; Admin Dose 50 MG; Start 11/10/18 at 21:00 PHYLICIA HOLCOMB NP Nov 11, 2018 14:47
--- NOTE | 2018-11-11 15:13 | CONS ---
Date/Time of Note Date/Time of Note DATE: 11/11/18 TIME: 15:11 Assessment/Plan Assessment/Plan Hospital Course 1. Dysphagia, status post G-tube placement. 2. Malfunctioning G-tube. 3. Psychiatric disorder. 4. Hypertension. 5. End-stage renal disease. 6. Anemia. 7. Hypertension, which is optimized. 8. 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 PLAN: Continue tube feed bolus, diet as tolerated PEG care per floor protocol given acute increase in WBC and disoriented, would recommend ID consult per primary continue supportive care Result Diagram: 11/11/18 0547 11/11/18 0547 Results 24hrs Laboratory Tests Test 11/10/18 17:57 11/10/18 20:37 11/11/18 05:47 11/11/18 08:08 Bedside Glucose 136 150 133 White Blood Count 8.9 # Red Blood Count 2.60 L Hemoglobin 7.2 L Hematocrit 22.2 L Mean Corpuscular Volume 85.4 Mean Corpuscular 27.7 L Hemoglobin Mean Corpuscular 32.4 Hemoglobin Concent Red Cell Distribution 16.1 H Width Platelet Count 295 Mean Platelet Volume 11.8 H Immature Granulocytes % 0.600 H Neutrophils % 72.9 Lymphocytes % 8.2 L Monocytes % 10.6 Eosinophils % 7.2 H Basophils % 0.5 Nucleated Red Blood 0.3 H Cells % Immature Granulocytes # 0.050 H Neutrophils # 6.5 Lymphocytes # 0.7 L Monocytes # 0.9 Eosinophils # 0.6 H Basophils # 0.0 Nucleated Red Blood 0.0 Cells # Sodium Level 143 Potassium Level 4.4 Chloride Level 101 Carbon Dioxide Level 30 Anion Gap 12 Blood Urea Nitrogen 38 #H Creatinine 2.34 #H Est Glomerular Filtrat Rate mL/min Glucose Level 151 Calcium Level 9.7 Phosphorus Level 2.6 Magnesium Level 2.4 Total Bilirubin 0.7 Direct Bilirubin 0.00 Indirect Bilirubin 0.7 Aspartate Amino 44 Transf (AST/SGOT) Alanine 23 Aminotransferase (ALT/SG PT) Alkaline Phosphatase 81 Total Protein 7.1 Albumin 4.0 Globulin 3.10 Albumin/Globulin Ratio 1.29 Test 11/11/18 13:00 Bedside Glucose 132 Consultation Date/Type/Reason Admit Date/Time Oct 16, 2018 at 18:45 Initial Consult Date Type of Consult GI 24 HR Interval Summary Free Text/Dictation tolerating tube feed without leak Exam/Review of Systems Vital Signs Vitals Vital Signs Date Temp Pulse Resp B/P (MAP) Pulse Ox O2 O2 Flow FiO2 Time Delivery Rate 11/11/18 98.4 69 18 100/50 99 Room Air 14:12 (67) Intake and Output 11/10/18 11/10/18 11/11/18 1515:00 23:00 07:00 IntakeIntake Total 60 ml 1053 ml 50 ml OutputOutput Total 400 ml BalanceBalance -340 ml 1053 ml 50 ml Exam Psych: no complaints, nl mood/affect Head: normocephalic, atraumatic Eyes: nl conjunctiva, EOMI, nl lids ENMT: nl external ears & nose, nl lips & teeth, nl nasal mucosa & septum Neck: supple, non-tender Respiratory: clear to auscultation, normal air movement Cardiovascular: regular rate and rhythm, nl pulses Gastrointestinal: soft, non-tender, other (GT c/d/i) Medications Medications Current Medications Docusate Sodium (Colace Liquid Cup) 100 mg DAILY GTB Last administered on 11/11/18 09:52; Admin Dose 100 MG; Start 10/17/18 at 09:00 Ferrous Sulfate (Feosol Liquid Cup) 330 mg BID GTB Last administered on 11/11/18 09:26; Admin Dose 330 MG; Start 10/16/18 at 22:00 Folic Acid (Folic Acid) 1 mg DAILY GTB Last administered on 11/11/18 09:28; Admin Dose 1 MG; Start 10/17/18 at 09:00 Insulin Detemir (Levemir) 8 units DAILY@0800 SC Last administered on 10/17/18at 08:40; Admin Dose 8 UNITS; Start 10/17/18 at 08:00; Status Hold Polyethylene Glycol (Miralax) 8.5 gm DAILY PRN GTB CONSTIPATION; Start 10/16/18 at 22:00 Multivit/Ca Carb/ B Cmplx/FA/Prenat (Kianna-Roque) 1 tab DAILY GTB Last administered on 11/11/18 09:25; Admin Dose 1 TAB; Start 10/17/18 at 09:00 Linagliptin (Tradjenta) 5 mg DAILY G-TUBE Last administered on 11/11/18 09:25; Admin Dose 5 MG; Start 10/17/18 at 09:00 Diagnostic Test (Pha) (Accu-Chek) 1 ea AC MEALS AND BEDTIME XX Last ad ministered on 11/11/18 11:30; Admin Dose 1 EA; Start 10/17/18 at 07:00 Senna (Senokot) 1 tab BID GTB Last administered on 11/11/18 09:27; Admin Dose 1 TAB; Start 10/16/18 at 22:00 Ondansetron HCl (Zofran Inj) 4 mg Q6H PRN IV NAUSEA AND/OR VOMITING; Start 10/16/18 at 22:00 Acetaminophen (Tylenol Liquid) 650 mg Q6 PRN GTB PAIN Last administered on 11/10/18 14:22; Admin Dose 650 MG; Start 10/16/18 at 22:00 Diagnostic Test (Pha) (Accu-Chek) 1 ea 02 XX Last administered on 11/02/18 02:35; Admin Dose 1 EA; Start 10/17/18 at 02:00 Insulin Aspart (Novolog Insulin Pen) NOVOLOG *MODERATE* ALGORITHM WITH MEALS BEDTIME SC Last administered on 10/17/18at 17:48; Admin Dose 4 UNIT; Start 10/17/18 at 08:00; Status Hold Miscellaneous Information 1 ea NOTE XX ; Start 10/16/18 at 22:30 Glucose (Glutose) 15 gm Q15M PRN PO DECREASED GLUCOSE; Start 10/16/18 at 22:30 Glucose (Glutose) 22.5 gm Q15M PRN PO DECREASED GLUCOSE; Start 10/16/18 at 22:30 Dextrose (D50w Syringe) 25 ml Q15M PRN IV DECREASED GLUCOSE; Start 10/16/18 at 22:30 Dextrose (D50w Syringe) 50 ml Q15M PRN IV DECREASED GLUCOSE; Start 10/16/18 at 22:30 Glucagon (Glucagen) 1 mg Q15M PRN IM DECREASED GLUCOSE; Start 10/16/18 at 22:30 Glucose (Glutose) 15 gm Q15M PRN BUCCAL DECREASED GLUCOSE Last administered on 10/17/18at 21:33; Admin Dose 15 GM; Start 10/16/18 at 22:30 Hydroxyzine HCl (Atarax) 25 mg Q6H PRN GTB ITCHING Last administered on 11/10/18 02:46; Admin Dose 25 MG; Start 10/20/18 at 14:00 Calamine (Calamine Lotion) 1 applic BID PRN TOP itching; Start 10/20/18 at 14:00 Amlodipine Besylate (Norvasc) 5 mg BID GTB Last administered on 11/11/18 09:26; Admin Dose 5 MG; Start 10/20/18 at 21:00 Lansoprazole (Prevacid) 30 mg DAILY@06 GTB Last administered on 11/11/18 05:12; Admin Dose 30 MG; Start 10/21/18 at 06:00 Hydralazine HCl (Apresoline) 25 mg TID GTB Last administered on 11/11/18 09:52; Admin Dose 25 MG; Start 10/21/18 at 21:00 Metoprolol Tartrate (Lopressor) 50 mg BID GTB Last administered on 11/11/18 09:27; Admin Dose 50 MG; Start 10/21/18 at 21:00 Heparin Sodium (Porcine) (Heparin (1000 Units/ml)) 4,000 unit AFTER DIALYSIS CATHETER Last administered on 11/10/18 12:04; Admin Dose 4,000 UNIT; Start 10/21/18 at 19:00 Albumin Human 50 ml @ 100 mls/hr WITH DIALYSIS PRN IV SBP<90 Last administered on 10/29/18at 12:34; Admin Dose 100 MLS/HR; Start 10/26/18 at 17:00 Sodium Chloride (NS) -To prime the dialy... DIRECTED FOR HD PRN IV SBP<90; Start 10/26/18 at 17:00 Sodium Chloride (NS) -To prime the dialy... DIRECTED FOR HD PRN IV SBP<90; Start 11/03/18 at 15:30 Valproate Sodium (Depakene Liquid Cup) 125 mg TID PO Last administered on 11/11/18 14:49; Admin Dose 125 MG; Start 11/08/18 at 13:36 Lorazepam (Ativan) 0.5 mg Q8H PRN GTB ANXIETY Last administered on 11/10/18 13:48; Admin Dose 0.5 MG; Start 11/09/18 at 15:00 Quetiapine Fumarate (Seroquel) 50 mg BID GTB Last administered on 11/11/18 09:27; Admin Dose 50 MG; Start 11/10/18 at 21:00 VICTORINO PATEL MD Nov 11, 2018 15:12
--- NOTE | 2018-11-11 16:06 | NUR ---
SPOKE WITH NEELAM IN BLOOD BANK UNIT OF PRBC NOT AVAILABLE YET. WILL CALL RN . Addendum: 11/11/18 at 1839 by REID GILMORE RN END OF SHIFT NOTES: PATIENT CALM ALL DAY AFTER RESTRAINTS REMOVED WITH 1:1 SITTER AT BEDSIDE.ALL NEEDS ATTENDED, NO SIGNIFICANT CHANGES DURING THE DAY. ALL MEDS CRUSHED GIVEN VIA G-TUBE.PT TURNED AND REPOSITIONED EVERY 2 HOURS, ISOLATION MAINTAINED. 1 UNIT PRBC STARTED VIA NEW IV LINE ON RIGHT AC. VITALS STABLE CONTINUE TO ASSESS.DIALYSIS CALLED TO [facility] SPOKE WITH NIKIA # [id number] GIVEN FOR AM HD.
--- NOTE | 2018-11-11 16:29 | CONS ---
Date/Time of Note Date/Time of Note DATE: 11/11/18 TIME: 16:27 Assessment/Plan Assessment/Plan Hospital Course 83 y/o with This is an 83-year-old female with: 1. Hypotension, could be secondary to sepsis as the patient has positive bacteremia/urinary tract infection VRE bactermia. s/p permcath removal and new placement The patient was continued on blood pressure medicines aggressively 2. Altered level of consciousness, likely secondary to metabolic encephalopathy, secondary to low blood pressures. vs Vascular dementia 3. Mild hyponatremia. 4. End-stage renal disease on hemodialysis. 5. Diabetes. 6. Dysphagia, status post G-tube feeding. 7. History of vascular dementia. 8. Hypertension. 9. History of falls. 10. Anemia. 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 leukocytosis > broadened coverage> however normalised ? error before - hold bp meds before HD -Appreciate vascular/ID consultation -Renally dose all meds Result Diagram: 11/11/18 0547 11/11/18 0547 Results 24hrs Laboratory Tests Test 11/10/18 17:57 11/10/18 20:37 11/11/18 05:47 11/11/18 08:08 Bedside Glucose 136 150 133 White Blood Count 8.9 # Red Blood Count 2.60 L Hemoglobin 7.2 L Hematocrit 22.2 L Mean Corpuscular Volume 85.4 Mean Corpuscular 27.7 L Hemoglobin Mean Corpuscular 32.4 Hemoglobin Concent Red Cell Distribution 16.1 H Width Platelet Count 295 Mean Platelet Volume 11.8 H Immature Granulocytes % 0.600 H Neutrophils % 72.9 Lymphocytes % 8.2 L Monocytes % 10.6 Eosinophils % 7.2 H Basophils % 0.5 Nucleated Red Blood 0.3 H Cells % Immature Granulocytes # 0.050 H Neutrophils # 6.5 Lymphocytes # 0.7 L Monocytes # 0.9 Eosinophils # 0.6 H Basophils # 0.0 Nucleated Red Blood 0.0 Cells # Sodium Level 143 Potassium Level 4.4 Chloride Level 101 Carbon Dioxide Level 30 Anion Gap 12 Blood Urea Nitrogen 38 #H Creatinine 2.34 #H Est Glomerular Filtrat Rate mL/min Glucose Level 151 Calcium Level 9.7 Phosphorus Level 2.6 Magnesium Level 2.4 Total Bilirubin 0.7 Direct Bilirubin 0.00 Indirect Bilirubin 0.7 Aspartate Amino 44 Transf (AST/SGOT) Alanine 23 Aminotransferase (ALT/SG PT) Alkaline Phosphatase 81 Total Protein 7.1 Albumin 4.0 Globulin 3.10 Albumin/Globulin Ratio 1.29 Test 11/11/18 13:00 Bedside Glucose 132 Consultation Date/Type/Reason Admit Date/Time Oct 16, 2018 at 18:45 Initial Consult Date 24 HR Interval Summary Free Text/Dictation 1 unit of blood today pending dc Exam/Review of Systems Vital Signs Vitals Vital Signs Date Temp Pulse Resp B/P (MAP) Pulse Ox O2 O2 Flow FiO2 Time Delivery Rate 11/11/18 98.4 69 18 100/50 99 Room Air 14:12 (67) Intake and Output 11/10/18 11/10/18 11/11/18 1515:00 23:00 07:00 IntakeIntake Total 60 ml 1053 ml 50 ml OutputOutput Total 400 ml BalanceBalance -340 ml 1053 ml 50 ml Exam Neck: supple Respiratory: diminished breath sounds Cardiovascular: regular rate and rhythm Gastrointestinal: soft Musculoskeletal: nl extremities to inspection Extremities: normal pulses permcath left Medications Medications Current Medications Docusate Sodium (Colace Liquid Cup) 100 mg DAILY GTB Last administered on 11/11/18 09:52; Admin Dose 100 MG; Start 10/17/18 at 09:00 Ferrous Sulfate (Feosol Liquid Cup) 330 mg BID GTB Last administered on 09:26; Admin Dose 330 MG; Start 10/16/18 at 22:00 Folic Acid (Folic Acid) 1 mg DAILY GTB Last administered on 11/11/18 09:28; Admin Dose 1 MG; Start 10/17/18 at 09:00 Insulin Detemir (Levemir) 8 units DAILY@0800 SC Last administered on 10/17/18at 08:40; Admin Dose 8 UNITS; Start 10/17/18 at 08:00; Status Hold Polyethylene Glycol (Miralax) 8.5 gm DAILY PRN GTB CONSTIPATION; Start 10/16/18 at 22:00 Multivit/Ca Carb/ B Cmplx/FA/Prenat (Kianna-Roque) 1 tab DAILY GTB Last administered on 11/11/18 09:25; Admin Dose 1 TAB; Start 10/17/18 at 09:00 Linagliptin (Tradjenta) 5 mg DAILY G-TUBE Last administered on 11/11/18 09:25; Admin Dose 5 MG; Start 10/17/18 at 09:00 Diagnostic Test (Pha) (Accu-Chek) 1 ea AC MEALS AND BEDTIME XX Last administered on 11/11/18 11:30; Admin Dose 1 EA; Start 10/17/18 at 07:00 Senna (Senokot) 1 tab BID GTB Last administered on 11/11/18 09:27; Admin Dose 1 TAB; Start 10/16/18 at 22:00 Ondansetron HCl (Zofran Inj) 4 mg Q6H PRN IV NAUSEA AND/OR VOMITING; Start 10/16/18 at 22:00 Acetaminophen (Tylenol Liquid) 650 mg Q6 PRN GTB PAIN Last administered on 14:22; Admin Dose 650 MG; Start 10/16/18 at 22:00 Diagnostic Test (Pha) (Accu-Chek) 1 ea 02 XX Last administered on 11/02/18at 02:35; Admin Dose 1 EA; Start 10/17/18 at 02:00 Insulin Aspart (Novolog Insulin Pen) NOVOLOG *MODERATE* ALGORITHM WITH MEALS BEDTIME SC Last administered on 10/17/18at 17:48; Admin Dose 4 UNIT; Start 10/17/18 at 08:00; Status Hold Miscellaneous Information 1 ea NOTE XX ; Start 10/16/18 at 22:30 Glucose (Glutose) 15 gm Q15M PRN PO DECREASED GLUCOSE; Start 10/16/18 at 22:30 Glucose (Glutose) 22.5 gm Q15M PRN PO DECREASED GLUCOSE; Start 10/16/18 at 22:30 Dextrose (D50w Syringe) 25 ml Q15M PRN IV DECREASED GLUCOSE; Start 10/16/18 at 22:30 Dextrose (D50w Syringe) 50 ml Q15M PRN IV DECREASED GLUCOSE; Start 10/16/18 at 22:30 Glucagon (Glucagen) 1 mg Q15M PRN IM DECREASED GLUCOSE; Start 10/16/18 at 22:30 Glucose (Glutose) 15 gm Q15M PRN BUCCAL DECREASED GLUCOSE Last administered on 10/17/18 21:33; Admin Dose 15 GM; Start 10/16/18 at 22:30 Hydroxyzine HCl (Atarax) 25 mg Q6H PRN GTB ITCHING Last administered on 11/10/18 02:46; Admin Dose 25 MG; Start 10/20/18 at 14:00 Calamine (Calamine Lotion) 1 applic BID PRN TOP itching; Start 10/20/18 at 14:00 Amlodipine Besylate (Norvasc) 5 mg BID GTB Last administered on 11/11/18 09:26; Admin Dose 5 MG; Start 10/20/18 at 21:00 Lansoprazole (Prevacid) 30 mg DAILY@06 GTB Last administered on 11/11/18 05:12; Admin Dose 30 MG; Start 10/21/18 at 06:00 Hydralazine HCl (Apresoline) 25 mg TID GTB Last administered on 11/11/18 09:52; Admin Dose 25 MG; Start 10/21/18 at 21:00 Metoprolol Tartrate (Lopressor) 50 mg BID GTB Last administered on 11/11/18 09:27; Admin Dose 50 MG; Start 10/21/18 at 21:00 Heparin Sodium (Porcine) (Heparin (1000 Units/ml)) 4,000 unit AFTER DIALYSIS CATHETER Last administered on 11/10/18 12:04; Admin Dose 4,000 UNIT; Start 10/21/18 at 19:00 Albumin Human 50 ml @ 100 mls/hr WITH DIALYSIS PRN IV SBP<90 Last administered on 10/29/18at 12:34; Admin Dose 100 MLS/HR; Start 10/26/18 at 17:00 Sodium Chloride (NS) -To prime the dialy... DIRECTED FOR HD PRN IV SBP<90; Start 10/26/18 at 17:00 Sodium Chloride (NS) -To prime the dialy... DIRECTED FOR HD PRN IV SBP<90; Start 11/03/18 at 15:30 Valproate Sodium (Depakene Liquid Cup) 125 mg TID PO Last administered on 11/11/18 14:49; Admin Dose 125 MG; Start 11/08/18 at 13:36 Lorazepam (Ativan) 0.5 mg Q8H PRN GTB ANXIETY Last administered on 11/10/18at 13:48; Admin Dose 0.5 MG; Start 11/09/18 at 15:00 Quetiapine Fumarate (Seroquel) 50 mg BID GTB Last administered on 11/11/18at 09:27; Admin Dose 50 MG; Start 11/10/18 at 21:00 JOSE RAUL ANDREWS MD Nov 11, 2018 16:29
[2018-11-11] MEDS ORDERED: ALBUMIN HUMAN 25% 100 ML IV PRN (16:30)
--- NOTE | 2018-11-11 20:52 | PN ---
DATE: 11/11/2018 SUBJECTIVE: Patient seen, noted a drop in her hemoglobin as it is 7.2 with hematocrit of 22. One un it of PRBC was ordered. We are awaiting transfusion. The patient to be dialyzed again tomorrow. Wh ite count actually improved to 8.9. Case discussed with ID as severe leukocytosis may be an error. PHYSICAL EXAMINATION: VITAL SIGNS: Temperature 98.4, pulse 60, respirations 18, blood pressure is 100/50, saturation is 99 % on room air. GENERAL: No acute distress. The patient is frail, pale. CARDIOVASCULAR: S1, S2, regular rate. LUNGS: Clear. ABDOMEN: Soft. G-tube in place. EXTREMITIES: No clubbing, cyanosis, or edema. She has a left chest IJ hemodialysis line. LABORATORY DATA: White count 8.9, hemoglobin 7.2, hematocrit 22, platelet count of 295, neutrophils 73%, 8%. Chemistry: Sodium 143, potassium 4.4, chloride 101, bicarbonate 30, BUN is 38, creat inine 2.34, glucose 151. LFTs are all normal. Blood cultures dated from yesterday were all negative . Chest x-ray which was ordered yesterday as well, shows the following: No evidence of active cardiopu lmonary disease, left tunneled dialysis catheter without pneumothorax. MEDICATIONS: All reviewed and include: 1. Seroquel 50 b.i.d. 2. Merrem dose per pharmacy. 3. Flagyl dose per pharmacy. 4. Vancomycin dose per pharmacy. Other medications include: 1. Ativan 2. Depakote. 3. Haldol. We discontinued the Haldol per family request. 4. Hydralazine. 5. Lopressor. 6. Heparin. 7. Prevacid. 8. Norvasc. 9. Atarax. 10. Calamine. 11. Colace. 12. Folic acid. 13. Kianna-Roque. 14. Tradjenta. 15. Accu-Cheks. 16. Hypoglycemic protocol. 17. Senna. 18. Zofran 19. Tylenol p.r.n. ASSESSMENT AND PLAN: This is an 83-year-old [place] female with history of end-stage renal disease, chronic obstructive p ulmonary disease, vascular dementia cerebrovascular accident who presented with hypotension due to li ne sepsis. 1. Respiratory. Off oxygen. Repeat chest x-ray is negative. 2. Severe leukocytosis yesterday, likely possible error. May continue discontinue antibiotics and o bserving. 3. Acute psychosis. I appreciate psychiatric input. Continue antipsychotics. Hold Haldol per fami ly request. 4. Infectious disease. Finished a course of antibiotics for VRE bacteremia which was due to line se psis. The patient now has a new line. 5. Anemia. Transfuse a unit of PRBC. Monitor hemoglobin and hematocrit. May benefit from Epogen. 6. End-stage renal disease. Continue dialysis 3 times a week with Dr. Stringer. 7. Dysphagia. The patient has a G-tube. Also, oral feeding p.r.n. for oral gratification. 8. Disposition: Likely tomorrow. Monitor H and H and monitor fever and white count. Otherwise, di gladysrge planning for likely tomorrow. 9. Diabetes mellitus, overall well controlled. We will follow. The patient remains with 1:1 sitter due to danger to self. Dictated By: DYLON HULL/MADAN Conf#: [id number] DID#: [id number]
[2018-11-11] MEDS: LORAZEPAM 0.5 MG TAB GTB PRN (21:44)
[2018-11-12] VITALS (17 sets, daily range): BP systolic 80–155; BP diastolic 43–65; PULSE 70–93; RESP 16–18
[2018-11-12] MEDS: ACCU-CHEK XX SCH ×4 (02:00→17:35)
[2018-11-12] MEDS: LANSOPRAZOLE 30 MG CAP GTB SCH (06:42)
--- NOTE | 2018-11-12 07:31 | NUR ---
REMAINS CONFUSED. 1:[address] PATIENT FINISHED 1 UNIT OF PRBC LAST NIGHT, NO ADVERSE EFFECT NOTED. DISCHARGE PLANNING IN PROGRESS.
--- NOTE | 2018-11-12 08:30 | NUR ---
BRITTA NOTE: SNF UPDATE Updated clinicals faxed to [facility] (P:[phone], F:[phone]). Confirmation received. Ranulfo Obregon RN CM [id number] Addendum: 11/12/18 at 1415 by FELICIANO OBREGON CM Received call from Beatriz at [facility] who states that she is accepting pt. Pt scheduled for transportation via [facility] (P:[phone]) scheduled for 1829. trip#[id number], FADY Peterson aware. Addendum: 11/12/18 at 1517 by FELICIANO OBREGON CM Called pt dtr Alejandro (P:[phone]) and informed her of transfer. Pt Dtr. agreeable.
--- NOTE | 2018-11-12 08:30 | NUR ---
CM NOTE: IMM No family at bedside. Pt unable to sign. Original placed in pt chart. Ranulfo Hatfield RN CM [id number]
[2018-11-12] MEDS: METOPROLOL 50 MG TAB GTB SCH (09:00)
[2018-11-12] MEDS: AMLODIPINE 5 MG TAB GTB SCH (09:00)
--- NOTE | 2018-11-12 09:02 | CONS ---
Date/Time of Note Date/Time of Note DATE: 11/12/18 TIME: 09:01 Assessment/Plan Assessment/Plan Hospital Course 1. Dysphagia, status post G-tube placement. 2. Malfunctioning G-tube. 3. Psychiatric disorder. 4. Hypertension. 5. End-stage renal disease. 6. Anemia. 7. Hypertension, which is optimized. 8. 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 PLAN: Continue tube feed bolus, diet as tolerated PEG care per floor protocol given acute increase in WBC and disoriented, would recommend ID consult per primary continue supportive care given no new GI recs, GI will follow peripherally Result Diagram: 11/12/1838 11/12/1838 Results 24hrs Laboratory Tests Test 11/11/18 13:00 11/11/18 17:41 11/11/18 22:17 11/12/18 06:38 Bedside Glucose 132 152 151 White Blood Count 5.6 # Red Blood Count 3.22 #L Hemoglobin 9.3 #L Hematocrit 27.2 #L Mean Corpuscular Volume 84.5 Mean Corpuscular 28.9 L Hemoglobin Mean Corpuscular 34.2 Hemoglobin Concent Red Cell Distribution 15.2 H Width Platelet Count 255 Mean Platelet Volume 11.8 H Immature Granulocytes % 0.700 H Neutrophils % 59.0 Lymphocytes % 13.3 L Monocytes % 12.1 H Eosinophils % 14.4 H Basophils % 0.5 Nucleated Red Blood 0.5 H Cells % Immature Granulocytes # 0.040 H Neutrophils # 3.3 Lymphocytes # 0.7 L Monocytes # 0.7 Eosinophils # 0.8 H Basophils # 0.0 Nucleated Red Blood 0.0 Cells # Sodium Level 138 Potassium Level 4.4 Chloride Level 101 Carbon Dioxide Level 27 Anion Gap 10 Blood Urea Nitrogen 62 H Creatinine 3.13 H Est Glomerular Filtrat Rate mL/min Glucose Level 106 # Calcium Level 9.2 Phosphorus Level 4.1 Magnesium Level 2.6 H Total Bilirubin 0.4 Direct Bilirubin 0.00 Indirect Bilirubin 0.4 Aspartate Amino 35 Transf (AST/SGOT) Alanine 27 Aminotransferase (ALT/SG PT) Alkaline Phosphatase 89 Total Protein 7.4 Albumin 3.7 Globulin 3.70 H Albumin/Globulin Ratio 1.00 Consultation Date/Type/Reason Admit Date/Time Oct 16, 2018 at 18:45 Initial Consult Date Type of Consult GI 24 HR Interval Summary Free Text/Dictation no n/v, tolerating tube feeds Exam/Review of Systems Vital Signs Vitals Vital Signs Date Temp Pulse Resp B/P (MAP) Pulse Ox O2 O2 Flow FiO2 Time Delivery Rate 11/12/18 97.6 70 16 138/60 98 07:35 (86) 11/11/18 Room Air 14:12 Intake and Output 11/11/18 11/11/18 11/12/18 1515:00 23:00 07:00 IntakeIntake Total 30 ml 350 ml 50 ml BalanceBalance 30 ml 350 ml 50 ml Exam Psych: confusion Head: normocephalic, atraumatic Eyes: nl conjunctiva, EOMI, nl lids ENMT: nl external ears & nose, nl lips & teeth, nl nasal mucosa & septum Neck: supple, non-tender Respiratory: clear to auscultation, normal air movement Cardiovascular: regular rate and rhythm, nl pulses Gastrointestinal: soft, non-tender, bowel sounds, other (GT c/d/i) Medications Medications Current Medications Docusate Sodium (Colace Liquid Cup) 100 mg DAILY GTB Last administered on 11/11/18 09:52; Admin Dose 100 MG; Start 10/17/18 at 09:00 Ferrous Sulfate (Feosol Liquid Cup) 330 mg BID GTB Last administered on 11/11/18 21:43; Admin Dose 330 MG; Start 10/16/18 at 22:00 Folic Acid (Folic Acid) 1 mg DAILY GTB Last administered on 11/11/18 09:28; Admin Dose 1 MG; Start 10/17/18 at 09:00 Insulin Detemir (Levemir) 8 units DAILY@0800 SC Last administered on 10/17/18at 08:40; Admin Dose 8 UNITS; Start 10/17/18 at 08:00; Status Hold Polyethylene Glycol (Miralax) 8.5 gm DAILY PRN GTB CONSTIPATION; Start 10/16/18 at 22:00 Multivit/Ca Carb/ B Cmplx/FA/Prenat (Kianna-Roque) 1 tab DAILY GTB Last administered on 11/11/18 09:25; Admin Dose 1 TAB; Start 10/17/18 at 09:00 Linagliptin (Tradjenta) 5 mg DAILY G-TUBE Last administered on 11/11/18 09:25; Admin Dose 5 MG; Start 10/17/18 at 09:00 Diagnostic Test (Pha) (Accu-Chek) 1 ea AC MEALS AND BEDTIME XX Last administered on 11/11/18 17:47; Admin Dose 1 EA; Start 10/17/18 at 07:00 Senna (Senokot) 1 tab BID GTB Last administered on 11/11/18 21:45; Admin Dose 1 TAB; Start 10/16/18 at 22:00 Ondansetron HCl (Zofran Inj) 4 mg Q6H PRN IV NAUSEA AND/OR VOMITING; Start 10/16/18 at 22:00 Acetaminophen (Tylenol Liquid) 650 mg Q6 PRN GTB PAIN Last administered on 11/10/18 14:22; Admin Dose 650 MG; Start 10/16/18 at 22:00 Diagnostic Test (Pha) (Accu-Chek) 1 ea 02 XX Last administered on 11/02/18 02:35; Admin Dose 1 EA; Start 10/17/18 at 02:00 Insulin Aspart (Novolog Insulin Pen) NOVOLOG *MODERATE* ALGORITHM WITH MEALS BEDTIME SC Last administered on 10/17/18 17:48; Admin Dose 4 UNIT; Start 10/17/18 at 08:00; Status Hold Miscellaneous Information 1 ea NOTE XX ; Start 10/16/18 at 22:30 Glucose (Glutose) 15 gm Q15M PRN PO DECREASED GLUCOSE; Start 10/16/18 at 22:30 Glucose (Glutose) 22.5 gm Q15M PRN PO DECREASED GLUCOSE; Start 10/16/18 at 22:30 Dextrose (D50w Syringe) 25 ml Q15M PRN IV DECREASED GLUCOSE; Start 10/16/18 at 22:30 Dextrose (D50w Syringe) 50 ml Q15M PRN IV DECREASED GLUCOSE; Start 10/16/18 at 22:30 Glucagon (Glucagen) 1 mg Q15M PRN IM DECREASED GLUCOSE; Start 10/16/18 at 22:30 Glucose (Glutose) 15 gm Q15M PRN BUCCAL DECREASED GLUCOSE Last administered on 10/17/18at 21:33; Admin Dose 15 GM; Start 10/16/18 at 22:30 Hydroxyzine HCl (Atarax) 25 mg Q6H PRN GTB ITCHING Last administered on 11/10/18 02:46; Admin Dose 25 MG; Start 10/20/18 at 14:00 Calamine (Calamine Lotion) 1 applic BID PRN TOP itching; Start 10/20/18 at 14:00 Amlodipine Besylate (Norvasc) 5 mg BID GTB Last administered on 11/11/18 21:45; Admin Dose 5 MG; Start 10/20/18 at 21:00 Lansoprazole (Prevacid) 30 mg DAILY@06 GTB Last administered on 11/12/18 06:42; Admin Dose 30 MG; Start 10/21/18 at 06:00 Hydralazine HCl (Apresoline) 25 mg TID GTB Last administered on 11/11/18 21:45; Admin Dose 25 MG; Start 10/21/18 at 21:00 Metoprolol Tartrate (Lopressor) 50 mg BID GTB Last administered on 11/11/18 21:45; Admin Dose 50 MG; Start 10/21/18 at 21:00 Heparin Sodium (Porcine) (Heparin (1000 Units/ml)) 4,000 unit AFTER DIALYSIS CATHETER Last administered on 11/10/18 12:04; Admin Dose 4,000 UNIT; Start 10/21/18 at 19:00 Albumin Human 50 ml @ 100 mls/hr WITH DIALYSIS PRN IV SBP<90 Last administered on 10/29/18at 12:34; Admin Dose 100 MLS/HR; Start 10/26/18 at 17:00 Sodium Chloride (NS) -To prime the dialy... DIRECTED FOR HD PRN IV SBP<90; Start 10/26/18 at 17:00 Sodium Chloride (NS) -To prime the dialy... DIRECTED FOR HD PRN IV SBP<90; Start 11/03/18 at 15:30 Valproate Sodium (Depakene Liquid Cup) 125 mg TID PO Last administered on 11/11/18 21:44; Admin Dose 125 MG; Start 11/08/18 at 13:36 Lorazepam (Ativan) 0.5 mg Q8H PRN GTB ANXIETY Last administered on 11/11/18 21:44; Admin Dose 0.5 MG; Start 11/09/18 at 15:00 Quetiapine Fumarate (Seroquel) 50 mg BID GTB Last administered on 11/11/18 21:45; Admin Dose 50 MG; Start 11/10/18 at 21:00 Albumin Human 100 ml @ 100 mls/hr WITH DIALYSIS PRN IV SBP<90; Start 11/11/18 at 16:30 VICTORINO PATEL MD Nov 12, 2018 09:02
[2018-11-12] MEDS: FOLIC ACID 1 MG TAB GTB SCH (09:20)
[2018-11-12] MEDS: DOCUSATE SODIUM 10 MG/ML (10ML CUP) GTB SCH (09:20)
[2018-11-12] MEDS: FERROUS SULFATE 60 MG/ML 5ML CUP GTB SCH (09:20)
[2018-11-12] MEDS: VALPROIC ACID LIQUID CUP 250 MG/5 ML CUP PO SCH ×2 (09:20→14:06)
[2018-11-12] MEDS: SENNA TAB GTB SCH (09:21)
[2018-11-12] MEDS: QUETIAPINE 25 MG TAB GTB SCH (09:21)
[2018-11-12] MEDS: LINAGLIPTIN 5 MG TABLET G-TUBE SCH (09:21)
[2018-11-12] MEDS: MULTIVIT/CA CARB/B CMPLX/FA TAB GTB SCH (09:21)
--- NOTE | 2018-11-12 10:39 | CONS ---
Date/Time of Note Date/Time of Note DATE: 11/12/18 TIME: 10:38 Assessment/Plan Assessment/Plan Hospital Course 1. End-stage renal disease on hemodialysis. 2. Altered level of consciousness, likely secondary to metabolic encephalopathy, secondary to low blood pressures. vs Vascular dementia, better 3. Mild hyponatremia resolved. 4. Hypotension, resolved. 5. Diabetes. 6. Dysphagia, status post G-tube placement 7. History of vascular dementia. 8. Hypertension. 9. History of falls. 10. Anemia. 11. VRE bacteremia FROM PERMACATH S/P REMOVAL, now with new Permcath 12. left hand edema and pain 13. Hypotension Assessment/Plan - HD today -d/c pending to SNF per primary - 1 unit prbc done yesterday -WBC normal - hold bp meds before HD -Appreciate vascular/ID consultation -Renally dose all meds Result Diagram: 11/12/18 0638 11/12/18 0638 Results 24hrs Laboratory Tests Test 11/11/18 13:00 11/11/18 17:41 11/11/18 22:17 11/12/18 06:38 Bedside Glucose 132 152 151 White Blood Count 5.6 # Red Blood Count 3.22 #L Hemoglobin 9.3 #L Hematocrit 27.2 #L Mean Corpuscular Volume 84.5 Mean Corpuscular 28.9 L Hemoglobin Mean Corpuscular 34.2 Hemoglobin Concent Red Cell Distribution 15.2 H Width Platelet Count 255 Mean Platelet Volume 11.8 H Immature Granulocytes % 0.700 H Neutrophils % 59.0 Lymphocytes % 13.3 L Monocytes % 12.1 H Eosinophils % 14.4 H Basophils % 0.5 Nucleated Red Blood 0.5 H Cells % Immature Granulocytes # 0.040 H Neutrophils # 3.3 Lymphocytes # 0.7 L Monocytes # 0.7 Eosinophils # 0.8 H Basophils # 0.0 Nucleated Red Blood 0.0 Cells # Sodium Level 138 Potassium Level 4.4 Chloride Level 101 Carbon Dioxide Level 27 Anion Gap 10 Blood Urea Nitrogen 62 H Creatinine 3.13 H Est Glomerular Filtrat Rate mL/min Glucose Level 106 # Calcium Level 9.2 Phosphorus Level 4.1 Magnesium Level 2.6 H Total Bilirubin 0.4 Direct Bilirubin 0.00 Indirect Bilirubin 0.4 Aspartate Amino 35 Transf (AST/SGOT) Alanine 27 Aminotransferase (ALT/SG PT) Alkaline Phosphatase 89 Total Protein 7.4 Albumin 3.7 Globulin 3.70 H Albumin/Globulin Ratio 1.00 Test 11/12/18 09:18 Bedside Glucose 105 Consultation Date/Type/Reason Admit Date/Time Oct 16, 2018 at 18:45 Initial Consult Date 10/16/2018 Type of Consult nephrology Reason for Consultation Dr Stringer 24 HR Interval Summary Free Text/Dictation confused Exam/Review of Systems Vital Signs Vitals Vital Signs Date Temp Pulse Resp B/P (MAP) Pulse Ox O2 O2 Flow FiO2 Time Delivery Rate 11/12/18 97.6 70 16 138/60 98 07:35 (86) 11/11/18 Room Air 14:12 Intake and Output 11/11/18 11/11/18 11/12/18 1515:00 23:00 07:00 IntakeIntake Total 30 ml 350 ml 50 ml BalanceBalance 30 ml 350 ml 50 ml Exam Perm cath left chest Constitutional: alert ENMT: nl external ears & nose Neck: supple Respiratory: diminished breath sounds Cardiovascular: regular rate and rhythm Gastrointestinal: soft 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: confused Skin: ecchymosis, laceration Medications Medications Current Medications Docusate Sodium (Colace Liquid Cup) 100 mg DAILY GTB Last administered on 11/12/18 09:20; Admin Dose 100 MG; Start 10/17/18 at 09:00 Ferrous Sulfate (Feosol Liquid Cup) 330 mg BID GTB Last administered on 11/12/18 09:20; Admin Dose 330 MG; Start 10/16/18 at 22:00 Folic Acid (Folic Acid) 1 mg DAILY GTB Last administered on 11/12/18 09:20; Admin Dose 1 MG; Start 10/17/18 at 09:00 Insulin Detemir (Levemir) 8 units DAILY@0800 SC Last administered on 10/17/18at 08:40; Admin Dose 8 UNITS; Start 10/17/18 at 08:00; Status Hold Polyethylene Glycol (Miralax) 8.5 gm DAILY PRN GTB CONSTIPATION; Start 10/16/18 at 22:00 Multivit/Ca Carb/ B Cmplx/FA/Prenat (Kianna-Roque) 1 tab DAILY GTB Last administered on 11/12/18 09:21; Admin Dose 1 TAB; Start 10/17/18 at 09:00 Linagliptin (Tradjenta) 5 mg DAILY G-TUBE Last administered on 11/12/18 09:21; Admin Dose 5 MG; Start 10/17/18 at 09:00 Diagnostic Test (Pha) (Accu-Chek) 1 ea AC MEALS AND BEDTIME XX Last administered on 11/12/18 07:00; Admin Dose 1 EA; Start 10/17/18 at 07:00 Senna (Senokot) 1 tab BID GTB Last administered on 11/12/18 09:21; Admin Dose 1 TAB; Start 10/16/18 at 22:00 Ondansetron HCl (Zofran Inj) 4 mg Q6H PRN IV NAUSEA AND/OR VOMITING; Start 10/16/18 at 22:00 Acetaminophen (Tylenol Liquid) 650 mg Q6 PRN GTB PAIN Last administered on 11/10/18 14:22; Admin Dose 650 MG; Start 10/16/18 at 22:00 Diagnostic Test (Pha) (Accu-Chek) 1 ea 02 XX Last administered on 11/02/18at 02:35; Admin Dose 1 EA; Start 10/17/18 at 02:00 Insulin Aspart (Novolog Insulin Pen) NOVOLOG *MODERATE* ALGORITHM WITH MEALS BEDTIME SC Last administered on 10/17/18 17:48; Admin Dose 4 UNIT; Start 10/17/18 at 08:00; Status Hold Miscellaneous Information 1 ea NOTE XX ; Start 10/16/18 at 22:30 Glucose (Glutose) 15 gm Q15M PRN PO DECREASED GLUCOSE; Start 10/16/18 at 22:30 Glucose (Glutose) 22.5 gm Q15M PRN PO DECREASED GLUCOSE; Start 10/16/18 at 22:30 Dextrose (D50w Syringe) 25 ml Q15M PRN IV DECREASED GLUCOSE; Start 10/16/18 at 22:30 Dextrose (D50w Syringe) 50 ml Q15M PRN IV DECREASED GLUCOSE; Start 10/16/18 at 22:30 Glucagon (Glucagen) 1 mg Q15M PRN IM DECREASED GLUCOSE; Start 10/16/18 at 22:30 Glucose (Glutose) 15 gm Q15M PRN BUCCAL DECREASED GLUCOSE Last administered on 10/17/18at 21:33; Admin Dose 15 GM; Start 10/16/18 at 22:30 Hydroxyzine HCl (Atarax) 25 mg Q6H PRN GTB ITCHING Last administered on 11/10/18 02:46; Admin Dose 25 MG; Start 10/20/18 at 14:00 Calamine (Calamine Lotion) 1 applic BID PRN TOP itching; Start 10/20/18 at 14 :00 Amlodipine Besylate (Norvasc) 5 mg BID GTB Last administered on 11/11/18 21:45; Admin Dose 5 MG; Start 10/20/18 at 21:00 Lansoprazole (Prevacid) 30 mg DAILY@06 GTB Last administered on 11/12/18 06:42; Admin Dose 30 MG; Start 10/21/18 at 06:00 Hydralazine HCl (Apresoline) 25 mg TID GTB Last administered on 11/11/18 21:45; Admin Dose 25 MG; Start 10/21/18 at 21:00 Metoprolol Tartrate (Lopressor) 50 mg BID GTB Last administered on 11/11/18 21:45; Admin Dose 50 MG; Start 10/21/18 at 21:00 Heparin Sodium (Porcine) (Heparin (1000 Units/ml)) 4,000 unit AFTER DIALYSIS CATHETER Last administered on 11/10/18 12:04; Admin Dose 4,000 UNIT; Start 10/21/18 at 19:00 Albumin Human 50 ml @ 100 mls/hr WITH DIALYSIS PRN IV SBP<90 Last administered on 10/29/18at 12:34; Admin Dose 100 MLS/HR; Start 10/26/18 at 17:00 Sodium Chloride (NS) -To prime the dialy... DIRECTED FOR HD PRN IV SBP<90; Start 10/26/18 at 17:00 Sodium Chloride (NS) -To prime the dialy... DIRECTED FOR HD PRN IV SBP<90; Start 11/03/18 at 15:30 Valproate Sodium (Depakene Liquid Cup) 125 mg TID PO Last administered on 11/12/18 09:20; Admin Dose 125 MG; Start 11/08/18 at 13:36 Lorazepam (Ativan) 0.5 mg Q8H PRN GTB ANXIETY Last administered on 11/11/18 21:44; Admin Dose 0.5 MG; Start 11/09/18 at 15:00 Quetiapine Fumarate (Seroquel) 50 mg BID GTB Last administered on 11/12/18at 09:21; Admin Dose 50 MG; Start 11/10/18 at 21:00 Albumin Human 100 ml @ 100 mls/hr WITH DIALYSIS PRN IV SBP<90; Start 11/11/18 at 16:30 FLAVIO CLAYTON Nov 12, 2018 10:39
--- NOTE | 2018-11-12 11:29 | CONS ---
Date/Time of Note Date/Time of Note DATE: 11/12/18 TIME: 11:28 Assessment/Plan Assessment/Plan Hospital Course Patient looks comfortable no fevers overnight WBC 5.6 H&H 9.3 and 27.2 platelets 255, no shift Blood cultures negative Chest x-ray 11/10/18 revealed no evidence for active cardiopulmonary disease Indwelling: Left chest permacath, PEG Antimicrobials: none Physical examination: Chronically ill-appearing elderly woman who is awake, confused, in no distress. Head atraumatic normocephalic. Neck is supple. Chest rise symmetrical breath sounds diminished bases. Heart: S1-S2. Abdomen soft bowel sounds present extremities without edema Assessment: 1. Status post leukocytosis with severe agitation and mental status change 2. Status post VRE bacteremia 2 to infected Pcath 3. Positive urinalysis on admission, urine culture came back negative 4. End-stage renal disease, hemodialysis dependent 5. Dementia 6. Failure to thrive 7. Diabetes 8. Anemia Plan: Stable off abx Result Diagram: 11/12/18 0638 11/12/18 0638 Results 24hrs Laboratory Tests Test 11/11/18 13:00 11/11/18 17:41 11/11/18 22:17 11/12/18 06:38 Bedside Glucose 132 152 151 White Blood Count 5.6 # Red Blood Count 3.22 #L Hemoglobin 9.3 #L Hematocrit 27.2 #L Mean Corpuscular Volume 84.5 Mean Corpuscular 28.9 L Hemoglobin Mean Corpuscular 34.2 Hemoglobin Concent Red Cell Distribution 15.2 H Width Platelet Count 255 Mean Platelet Volume 11.8 H Immature Granulocytes % 0.700 H Neutrophils % 59.0 Lymphocytes % 13.3 L Monocytes % 12.1 H Eosinophils % 14.4 H Basophils % 0.5 Nucleated Red Blood 0.5 H Cells % Immature Granulocytes # 0.040 H Neutrophils # 3.3 Lymphocytes # 0.7 L Monocytes # 0.7 Eosinophils # 0.8 H Basophils # 0.0 Nucleated Red Blood 0.0 Cells # Sodium Level 138 Potassium Level 4.4 Chloride Level 101 Carbon Dioxide Level 27 Anion Gap 10 Blood Urea Nitrogen 62 H Creatinine 3.13 H Est Glomerular Filtrat Rate mL/min Glucose Level 106 # Calcium Level 9.2 Phosphorus Level 4.1 Magnesium Level 2.6 H Total Bilirubin 0.4 Direct Bilirubin 0.00 Indirect Bilirubin 0.4 Aspartate Amino 35 Transf (AST/SGOT) Alanine 27 Aminotransferase (ALT/SG PT) Alkaline Phosphatase 89 Total Protein 7.4 Albumin 3.7 Globulin 3.70 H Albumin/Globulin Ratio 1.00 Test 11/12/18 09:18 Bedside Glucose 105 Consultation Date/Type/Reason Admit Date/Time Oct 16, 2018 at 18:45 Initial Consult Date Type of Consult ID Exam/Review of Systems Vital Signs Vitals Vital Signs Date Temp Pulse Resp B/P (MAP) Pulse Ox O2 O2 Flow FiO2 Time Delivery Rate 11/12/18 97.6 70 16 138/60 98 07:35 (86) 11/11/18 Room Air 14:12 Intake and Output 11/11/18 11/11/18 11/12/18 1515:00 23:00 07:00 IntakeIntake Total 30 ml 350 ml 50 ml BalanceBalance 30 ml 350 ml 50 ml Medications Medications Current Medications Docusate Sodium (Colace Liquid Cup) 100 mg DAILY GTB Last administered on 11/12/18 09:20; Admin Dose 100 MG; Start 10/17/18 at 09:00 Ferrous Sulfate (Feosol Liquid Cup) 330 mg BID GTB Last administered on 11/12/18 09:20; Admin Dose 330 MG; Start 10/16/18 at 22:00 Folic Acid (Folic Acid) 1 mg DAILY GTB Last administered on 11/12/18 09:20; Admin Dose 1 MG; Start 10/17/18 at 09:00 Insulin Detemir (Levemir) 8 units DAILY@0800 SC Last administered on 10/17/18at 08:40; Admin Dose 8 UNITS; Start 10/17/18 at 08:00; Status Hold Polyethylene Glycol (Miralax) 8.5 gm DAILY PRN GTB CONSTIPATION; Start 10/16/18 at 22:00 Multivit/Ca Carb/ B Cmplx/FA/Prenat (Kianna-Roque) 1 tab DAILY GTB Last administered on 11/12/18 09:21; Admin Dose 1 TAB; Start 10/17/18 at 09:00 Linagliptin (Tradjenta) 5 mg DAILY G-TUBE Last administered on 11/12/18 09:21; Admin Dose 5 MG; Start 10/17/18 at 09:00 Diagnostic Test (Pha) (Accu-Chek) 1 ea AC MEALS AND BEDTIME XX Last administered on 11/12/18 07:00; Admin Dose 1 EA; Start 10/17/18 at 07:00 Senna (Senokot) 1 tab BID GTB Last administered on 11/12/18 09:21; Admin Dose 1 TAB; Start 10/16/18 at 22:00 Ondansetron HCl (Zofran Inj) 4 mg Q6H PRN IV NAUSEA AND/OR VOMITING; Start 10/16/18 at 22:00 Acetaminophen (Tylenol Liquid) 650 mg Q6 PRN GTB PAIN Last administered on 11/10/18 14:22; Admin Dose 650 MG; Start 10/16/18 at 22:00 Diagnostic Test (Pha) (Accu-Chek) 1 ea 02 XX Last administered on 11/02/18 02:35; Admin Dose 1 EA; Start 10/17/18 at 02:00 Insulin Aspart (Novolog Insulin Pen) NOVOLOG *MODERATE* ALGORITHM WITH MEALS BEDTIME SC Last administered on 10/17/18 17:48; Admin Dose 4 UNIT; Start 10/17/18 at 08:00; Status Hold Miscellaneous Information 1 ea NOTE XX ; Start 10/16/18 at 22:30 Glucose (Glutose) 15 gm Q15M PRN PO DECREASED GLUCOSE; Start 10/16/18 at 22:30 Glucose (Glutose) 22.5 gm Q15M PRN PO DECREASED GLUCOSE; Start 10/16/18 at 22:30 Dextrose (D50w Syringe) 25 ml Q15M PRN IV DECREASED GLUCOSE; Start 10/16/18 at 22:30 Dextrose (D50w Syringe) 50 ml Q15M PRN IV DECREASED GLUCOSE; Start 10/16/18 at 22:30 Glucagon (Glucagen) 1 mg Q15M PRN IM DECREASED GLUCOSE; Start 10/16/18 at 22:30 Glucose (Glutose) 15 gm Q15M PRN BUCCAL DECREASED GLUCOSE Last administered on 10/17/18 21:33; Admin Dose 15 GM; Start 10/16/18 at 22:30 Hydroxyzine HCl (Atarax) 25 mg Q6H PRN GTB ITCHING Last administered on 11/10/18 02:46; Admin Dose 25 MG; Start 10/20/18 at 14:00 Calamine (Calamine Lotion) 1 applic BID PRN TOP itching; Start 10/20/18 at 14:00 Amlodipine Besylate (Norvasc) 5 mg BID GTB Last administered on 11/11/18 21:45; Admin Dose 5 MG; Start 10/20/18 at 21:00 Lansoprazole (Prevacid) 30 mg DAILY@06 GTB Last administered on 11/12/18 06:42; Admin Dose 30 MG; Start 10/21/18 at 06:00 Hydralazine HCl (Apresoline) 25 mg TID GTB Last administered on 11/11/18 21:45; Admin Dose 25 MG; Start 10/21/18 at 21:00 Metoprolol Tartrate (Lopressor) 50 mg BID GTB Last administered on 11/11/18 21:45; Admin Dose 50 MG; Start 10/21/18 at 21:00 Heparin Sodium (Porcine) (Heparin (1000 Units/ml)) 4,000 unit AFTER DIALYSIS CATHETER Last administered on 11/10/18 12:04; Admin Dose 4,000 UNIT; Start 10/21/18 at 19:00 Albumin Human 50 ml @ 100 mls/hr WITH DIALYSIS PRN IV SBP<90 Last administered on 10/29/18at 12:34; Admin Dose 100 MLS/HR; Start 10/26/18 at 17:00 Sodium Chloride (NS) -To prime the dialy... DIRECTED FOR HD PRN IV SBP<90; Start 10/26/18 at 17:00 Sodium Chloride (NS) -To prime the dialy... DIRECTED FOR HD PRN IV SBP<90; Start 11/03/18 at 15:30 Valproate Sodium (Depakene Liquid Cup) 125 mg TID PO Last administered on 11/12/18 09:20; Admin Dose 125 MG; Start 11/08/18 at 13:36 Lorazepam (Ativan) 0.5 mg Q8H PRN GTB ANXIETY Last administered on 11/11/18 21:44; Admin Dose 0.5 MG; Start 11/09/18 at 15:00 Quetiapine Fumarate (Seroquel) 50 mg BID GTB Last administered on 11/12/18 09:21; Admin Dose 50 MG; Start 11/10/18 at 21:00 Albumin Human 100 ml @ 100 mls/hr WITH DIALYSIS PRN IV SBP<90; Start 11/11/18 at 16:30 PHYLICIA HOLCOMB NP Nov 12, 2018 11:29
--- NOTE | 2018-11-12 13:08 | PDOCDIS ---
Discharge Instructions CONDITION [id number] Patient Condition: [id number] Stable HOME CARE INSTRUCTIONS: [id number] Special Diet: [id number] PUREED, NECTAR THICK, GTF BOLUS FOLLOW UP/APPOINTMENTS Follow-up Plan see reconciliation, fall precautions at all times, psychiatry follow up REFERRALS 2 [id number] Agency Name and Phone [address], see Number: reconciliation DYLON WALLS MD Nov 12, 2018 13:08
--- NOTE | 2018-11-12 13:44 | DS ---
DATE OF ADMISSION: 10/16/2018 DATE OF DISCHARGE: 11/12/2018 REASON FOR ADMISSION: Hypotension and mild encephalopathy, rule out sepsis. HOSPITAL COURSE: The patient is an 83-year-old Croatian female with multiple medical problems includ ing end-stage renal disease on dialysis 3 times a week, diastolic dysfunction heart failure, diabetes mellitus, hypertension, vascular dementia, anxiety disorder, COPD, anemia, psychiatric disorder, who was brought into [facility] from the dialysis center. The patient was noted to be hypotensive. Upon presentation, she had elevated lactic acid and we were concerned about sepsis. U ltimately, blood cultures came back positive for VRE as patient was given antibiotics initially with Zyvox then this was switched to daptomycin. The patient was treated for 2 weeks during her hospitali zation. The right IJ was removed and she had a left IJ placed due to the line sepsis. In addition, she required multiple transfusions due to bleeding from the new IJ line. This was sutured and the pa tient has been more stable with low hemoglobin. She did receive another unit of blood yesterday. Th e patient is anemic partly due to end-stage renal disease and she may benefit from Epogen. The patie nt required 1:1 sitter due to danger to self. Wound culture also showed possible VRE, but she was treated for more than 2 weeks with IV antibiotics for her VRE. White count normalized and the pa tient is doing otherwise stable, currently being dialyzed. Temperature 97.6, pulse 70, respirations 16, blood pressure 138/60, saturation 98%. DISCHARGE MEDICATIONS: The patient was discharged back to the assisted facility with the foll owing medications: 1. Accu-Chek before every meal and at bedtime. 2. Tylenol p.r.n. for pain. 3. Norvasc 5 mg. As her blood pressure has been quite okay, we will just make it once a day. 4. Calamine lotion p.r.n. 5. Colace 100 daily. 6. Ferrous sulfate 325 b.i.d. 7. Folic acid 1 mg daily. 8. Hypoglycemic protocol. 9. Hydralazine 25 t.i.d., hold for systolic blood pressure less than 100 mg. 10. Atarax p.r.n. 11. Insulin aspart per sliding scale. 12. Levemir 8 units daily. 13. Prevacid 30 mg daily. 14. Tradjenta 5 mg daily. 15. Ativan 0.5 q.8 p.r.n. for anxiety. 16. Lopressor 50 mg b.i.d., hold for systolic blood pressure less than 110, heart rate less than 60. 17. Kianna-Roque 1 tab daily. 18. Zofran 4 mg p.o. or G-tube q.4 p.r.n. 19. MiraLax 17 grams daily. 20. Seroquel 50 b.i.d. 21. Senna as directed. 22. Depakote 125 t.i.d. 23. Vitamin D3 800 mg via G-tube daily. Fall precautions. During her stay also, G-tube was changed by Dr. Baird due to old G-tube which was malfunctioning. The patient will be discharged with today in fair condition. Continue G-tube feedi ng. FINAL DIAGNOSES: 1. Hypotension, rule out sepsis. 2. Sepsis, organism vancomycin-resistant Enterococcus. 3. End-stage renal disease. 4. Anemia, status post multiple transfusions. 5. Malfunctioning left IJ status post suturing. 6. Malnutrition. 7. Dysphagia. 8. Anxiety disorder. 9. Acute psychosis. 10. Diabetes mellitus, overall controlled. 11. Dysphagia. 12. Moderate caloric-protein malnutrition. 13. Constipation. 14. History of recurrent falls. 15. Vascular dementia. 16. History of hip fracture. 17. Thrombocytopenia, resolved. 18. Atherosclerotic cardiovascular disease 19. Constipation. 20. Rash, pruritus, possible medication induced. 21. Anemia, status post multiple transfusions. Case was discussed with the daughter on intermittent basis. The patient is stable for discharge afte r dialysis today back to the assisted facility. Dictated By: DYLON HULL/MADAN Conf#: [id number] DID#: [id number] CC: MIKEL REDDY MD;*EndCC*
--- NOTE | 2018-11-12 14:43 | NUR ---
Hemodialysis completed, no uf removed, Albumin given for BP support, in no distress, no sob, denies pain, access remains clean and dry, secured, safety observed, primary RN aware. BP 124/60 post HD Addendum: 11/12/18 at 1444 by CARLO COTO Amended: Links added.
[2018-11-12] MEDS: HEPARIN 1000 UNITS/ML 10 ML INJ CATHETER SCH (14:49)
[2018-11-12] MEDS: ACETAMINOPHEN 650MG/20.3ML CUP GTB PRN (15:33)
--- NOTE | 2018-11-12 18:13 | NUR ---
End of Shift Notes Patient to be discharged today to [facility] ([place]), report given to Brisa SHRESTHA. Daughter Markus is aware of the transfer, patient was dialyzed today, no distress noted. All needs attended to, vitals stable, will endorse to oncoming shift for discharge
== END 2018-11-12 19:20 | DRG 314 ==
LOC: E/R 16:59 → 2NE 18:45
PROVIDERS: ADMIT Internal Medicine; ATTEND Internal Medicine
PROC: 5A1D70Z Performance of Urinary Filtration, Intermittent, Less than 6 Hours Per Day (ICD-10-PCS; 2018-10-18)
PROC: 02PAX3Z Removal of Infusion Device from Heart, External Approach (ICD-10-PCS; 2018-10-22)
PROC: 02H633Z Insertion of Infusion Device into Right Atrium, Percutaneous Approach (ICD-10-PCS; 2018-10-25)
PROC: 0JH63XZ Insertion of Tunneled Vascular Access Device into Chest Subcutaneous Tissue and Fascia, Percutaneous Approach (ICD-10-PCS; principal; 2018-10-25 08:30)
PROC: 30233N1 Transfusion of Nonautologous Red Blood Cells into Peripheral Vein, Percutaneous Approach (ICD-10-PCS; 2018-10-26)
PROC: 0D20XUZ Change Feeding Device in Upper Intestinal Tract, External Approach (ICD-10-PCS; 2018-11-04)
DX: T82.7XXA Infection and inflammatory reaction due to other cardiac and vascular devices, implants and grafts, initial encounter (principal); G93.41 Metabolic encephalopathy; A41.81 Sepsis due to Enterococcus; R65.20 Severe sepsis without septic shock; N18.6 End stage renal disease; I13.2 Hypertensive heart and chronic kidney disease with heart failure and with stage 5 chronic kidney disease, or end stage renal disease; I50.30 Unspecified diastolic (congestive) heart failure; E44.0 Moderate protein-calorie malnutrition; E87.1 Hypo-osmolality and hyponatremia; N39.0 Urinary tract infection, site not specified; Z68.1 Body mass index [BMI] 19.9 or less, adult; J98.11 Atelectasis; K94.23 Gastrostomy malfunction; F23 Brief psychotic disorder; Z16.21 Resistance to vancomycin; D63.1 Anemia in chronic kidney disease; E11.22 Type 2 diabetes mellitus with diabetic chronic kidney disease; E78.5 Hyperlipidemia, unspecified; F01.50 Vascular dementia, unspecified severity, without behavioral disturbance, psychotic disturbance, mood disturbance, and anxiety; F41.9 Anxiety disorder, unspecified; F03.90 Unspecified dementia, unspecified severity, without behavioral disturbance, psychotic disturbance, mood disturbance, and anxiety; I95.9 Hypotension, unspecified; J44.9 Chronic obstructive pulmonary disease, unspecified; L27.0 Generalized skin eruption due to drugs and medicaments taken internally; M19.90 Unspecified osteoarthritis, unspecified site; M79.642 Pain in left hand; R13.10 Dysphagia, unspecified; R62.7 Adult failure to thrive; R60.0 Localized edema; T82.838A Hemorrhage due to vascular prosthetic devices, implants and grafts, initial encounter; Z99.2 Dependence on renal dialysis; Z91.15 Patient's noncompliance with renal dialysis; Z86.73 Personal history of transient ischemic attack (TIA), and cerebral infarction without residual deficits; Z91.81 History of falling; Z79.4 Long term (current) use of insulin
CPT/HCPCS: 36415; 36430; 49465; 70450; 71045; 74018; 80048; 80053; 80202; 81001; 82140; 82550; 82947; 82962; 83036; 83605; 83735; 84100; 84443; 84484; 85025; 85610; 85730; 86644; 86706; 86850; 86900; 86901; 86920; 87040; 87070; 87086; 87340; 90935; 93005; 93306; A4310; C1750; J0360; J0696; J1200; J1630; J1644; J1815; J2060; J2185; J2597; J3370; J7040; P9016; P9047

== ENCOUNTER 2018-11-16 02:09 | Inpatient (IN) | payer MEDICARE, OTHER ==
[~2018-11-16] VITALS: Ht 149.9 cm; Wt 44.0 kg
[~2018-11-16 02:09] MED LIST changes: +ACET-2047 GTB; +AMLO5TAB4 GTB; +CALC1TAB93 GTB; -CALC650T12 PO; +CHOL400T8 GTB; +CLON1PAT2 TD; -DICL75TA2 PO; +DOCU-144 GTB; -DOCU250C58 PO; -FER325 PO; +FERR220S13 GTB; +FOLI-49 GTB; -FURO40SO PO; -GABA300S PO; +HYDR-3671 GTB; -HYDR-3672 PO; +INSU100I27 SQ; +IPRA3AMP29 INHALATION; +LINA145C GTB; +LINA5TAB GTB; +LORA1TAB GTB; +METO-429 GTB; -METO-429 PO; +NEPHRO-VITE GTB; -NIFE60TA18 PO; +NOVO3I SC; +ONDA4TAB13 GTB; +PANT40TA3 GTB; -PANT40TA4 PO; +POLY17PO6 GTB; -POTA8CAP PO; +QUET25TA GTB; +SEVE800T7 GTB; -SITA50TA2 PO; -vit d
[2018-11-16 02:21] VITALS: Ht 149.9 cm; Wt 44.0 kg
[2018-11-16] MEDS ORDERED: morphine 4 MG/ML VIAL IV STA (03:11)
[2018-11-16] MEDS ORDERED: VALP250S2 PO (04:12)
[2018-11-16] MEDS ORDERED: SEVE0.8P PO (04:43)
[2018-11-16] MEDS ORDERED: LANS30CA PO (04:43)
[2018-11-16] MEDS ORDERED: FER325 PO (04:43)
[2018-11-16] MEDS ORDERED: HYDR-3671 PO (04:43)
[2018-11-16] MEDS ORDERED: SENN-120 PO (04:43)
[2018-11-16] MEDS ORDERED: PIPER-TAZO 3.375 GM IV (PMX) 100 ML IVPB ONE (06:00)
[2018-11-16] MEDS ORDERED: LORAZEPAM 2 MG INJ IV ONE (06:30)
[2018-11-16] MEDS: SENNA TAB PO SCH ×2 (09:00→21:18)
[2018-11-16] MEDS ORDERED: HYDROCODONE/APAP (5/325) TAB PO PRN (09:00)
[2018-11-16] MEDS ORDERED: ALBUTEROL/IPRATROPIUM (NEB) 3 ML AMP HHN PRN (09:00)
[2018-11-16] MEDS ORDERED: MAGNESIUM HYDROXIDE 30ML CUP PO PRN (09:00)
[2018-11-16] MEDS ORDERED: DOCUSATE SODIUM 100 MG CAP PO PRN (09:00)
[2018-11-16] MEDS: DOCUSATE SODIUM 100 MG CAP PO SCH (09:00)
[2018-11-16] MEDS: LANSOPRAZOLE 30 MG CAP PO SCH (09:00)
[2018-11-16] MEDS ORDERED: NACL 0.9% 3 ML SYG IV SCH (09:00)
[2018-11-16] MEDS ORDERED: VANCOMYCIN IV PER PHARMACY XX SCH (09:00)
[2018-11-16] MEDS ORDERED: ACETAMINOPHEN 325 MG TAB GTB PRN (09:00)
[2018-11-16] MEDS: FOLIC ACID 1 MG TAB GTB SCH (09:00)
[2018-11-16] MEDS: LINAGLIPTIN 5 MG TABLET GTB SCH (09:00)
[2018-11-16 10:52] VITALS: BP 170/110; PULSE 99; RESP 16
[2018-11-16] MEDS ORDERED: VANCOMYCIN 1 GM 250 ML IVPB SCH (11:00)
[2018-11-16] MEDS: SEVELAMER CARBONATE 0.8 GM PKT PO SCH ×2 (11:30→17:16)
[2018-11-16] MEDS: QUETIAPINE 25 MG TAB GTB SCH ×2 (11:41→21:18)
[2018-11-16] MEDS: METOPROLOL 50 MG TAB GTB SCH ×2 (11:41→21:20)
[2018-11-16] MEDS: AMLODIPINE 5 MG TAB GTB SCH ×2 (11:41→21:18)
[2018-11-16 13:01] VITALS: BP 145/65; PULSE 63; RESP 16
--- NOTE | 2018-11-16 13:57 | QN ---
Documentation Comment seen and examined JOSE RAUL ANDREWS MD Nov 16, 2018 13:57
--- NOTE | 2018-11-16 14:08 | CONS ---
DATE OF ADMISSION: 11/16/2018 DATE OF CONSULTATION: 11/16/2018 TYPE OF CONSULTATION: Infectious disease. REASON FOR CONSULTATION: Antibiotic management. HISTORY OF PRESENT ILLNESS: Zahira White is an 83-year-old unfortunate female well known to us from previous recent admission, who comes in now with cellulitis of the hand. The patient was brought in by RA from [facility] with right hand swelling and pain after dialysis last night. She has chronic altered mental status. Her problems include: 1. Senile dementia. 2. Chronic obstructive pulmonary disease. 3. Pneumonia. 4. Hypertension. 5. Anxiety. Patient was hospitalized here for a prolonged period of time. She was admitted on 06/2018 and was here until 11/14/2018. 6. As noted, she has end-stage renal disease on hemodialysis, diastolic dysfunction heart failure, d iabetes mellitus, hypertension, vascular dementia, anxiety and COPD. She is status post sepsis with VRE bacteremia secondary to an infected Perm-A-Cath. She was on daptomycin; last dose 11/06/2018. S he has an indwelling left chest Perm-A-Cath and a G-tube, status post leukocytosis with severe agitat ion and mental status changes, status post VRE bacteremia secondary to Perm-A-Cath infection, positiv e urinalysis, urine culture negative. End-stage renal disease, on hemodialysis, dementia, failure to thrive, and so on. She now comes in with cellulitis of the right hand. PAST MEDICAL HISTORY: Operations as outlined. FAMILY HISTORY: Noncontributory. SOCIAL HISTORY: She does not smoke, drink or abuse drugs. ALLERGIES: None to penicillin, sulfa or foods. MEDICATIONS: Per chart. REVIEW OF SYSTEMS: As per HPI. PHYSICAL EXAMINATION: GENERAL: She is an elderly appearing female who is demented. No acute distress. VITAL SIGNS: Stable. She is afebrile. SKIN: Without generalized rash. HEENT: Within normal limits. NECK: Supple. LYMPH NODES: None palpable. CHEST: Decreased breath sounds at the bases with occasional rhonchi. THORAX: She has a Perm-A-Cath in the left chest. HEART: Without murmur or gallops. ABDOMEN: Soft, nontender. G-tube in place. No organosplenomegaly or masses. EXTREMITIES: Without cyanosis, clubbing, or edema. RECTAL AND GENITAL: Deferred. NEUROLOGIC: The patient is demented. No focal neurological abnormality. The patient was started on vancomycin and Zosyn. Her white count was 10.1, H and H was 7.9 and 23.9, platelet count 241,000 with 80% polys. BUN and c reatinine 27/11.42. We will continue this patient on current therapy. I will dictate my findings to Dr. Perez. Blood cultures have been done. I want to thank him for asking me to see this unfortunate lady in consultation. Dictated By: EDIE CHANG MD, JD/NTS Conf#: [id number] DID#: [id number] CC: DYLON PEREZ MD;*[facility]*
[2018-11-16] MEDS: PIPER-TAZO 2.25 GM (PMX) 50 ML IVPB SCH ×2 (14:20→21:18)
[2018-11-16] MEDS: VALPROIC ACID LIQUID CUP 250 MG/5 ML CUP PO SCH ×2 (14:20→21:18)
[2018-11-16 14:29] VITALS: BP 146/67; PULSE 67; RESP 16
--- NOTE | 2018-11-16 14:59 | CONS ---
DATE OF ADMISSION: 11/16/2018 DATE OF CONSULTATION: 11/16/2018 REASON FOR CONSULTATION: End-stage renal disease on hemodialysis. HISTORY OF PRESENT ILLNESS: This is an 83-year-old female with a past medical history of hypertensio n, hyperlipidemia, history of vascular dementia and a malfunctioning right IJ, dysphagia, diabetes, p rotein-energy malnutrition, history of hip fracture who was recently admitted from [facility] from 10/16/2018 to 11/12/2018. At that time, patient had blood cultures that are positive for VRE, was treated and antibiotics, Zyvox and then the Perm-A-Cath was switched to daptomycin. Ri t Perm-A-Cath was removed. The patient had a left IJ placed. The patient was having intermittent episodes of bleeding. Patient was discharged to [facility] on 11/12/2018. However, according to huber vera daughter, the patient had been doing fine on the day of dialysis. After dialysis, she was noted t o have swelling of the right arm. She was also noted to have black stools and was sent into the ER f or further evaluation. History is somewhat limited as the patient is unable to give any meaningful h istory. On arrival to ED, vital signs showed blood pressure 155/65, afebrile, heart rate 93. Labs s howed hemoglobin of 7.9. BMP within normal limit except BUN of 19, creatinine 1.42, lipase of 343. Patient had x-ray of the right hand that showed extensive soft tissue swelling along the dorsum of th e right hand and wrist but no soft tissue gas or foreign body. The patient also had an extreme venou s study that showed no evidence of venous thrombus, problem large fluid collection of the dorsum of t he hand and both shown. Also has arterial study that shows unremarkable flow in the subclavian, axil nitza and brachial arteries and the patient was admitted for further management. PAST MEDICAL HISTORY: 1. End-stage renal disease on hemodialysis Thursday, Thursday, Thursday. Left IJ Perm-A-Cath. 2. Hypertension. 3. Hyperlipidemia. 4. Dysphagia, G-tube. 5. Anxiety disorder. 6. Moderate protein-energy malnutrition. 7. History of recurrent falls. 8. History of vascular dementia. 9. Atherosclerotic aortic disease. ALLERGIES: NONE. PAST SURGICAL HISTORY: Perm-A-Cath placement. SOCIAL HISTORY: No history of smoking, alcohol or any drug use. Currently lives at [facility]. MEDICATION: At the [facility] are: 1. Levimir. 2. Linzess. 3. Lopressor. 4. MiraLax. 5. Nephro-Roque. 6. Tylenol. 7. Amlodipine. 8. Ativan. 9. Colace. 10. Iron sulfate. 11. Folic acid. 12. Hydralazine. 13. Protonix. 14. Renvela. 15. Senna. 16. Seroquel. 17. Tradjenta. REVIEW OF SYSTEMS: The patient is currently confused and this could not be obtained. PHYSICAL EXAMINATION: VITAL SIGNS: Blood pressure 145/65, afebrile, heart rate 63, respirations 16, saturation 95% on room air. GENERAL: The patient is awake, alert; however, somewhat combative and confused in between. HEENT: Pupils equal, round, reactive to light. NECK: Supple. HEART: Regular rate and rhythm. LUNGS: Clear to auscultate bilaterally. CARDIOVASCULAR: Patient has a left IJ in place. Her right arm is extremely swollen, especially the fingers on the right hand, unable to open and close the fist. The patient has a marked swelling also on the right forearm tender to palpation. Patient has also noted multiple bruises. EXTREMITIES: No clubbing, cyanosis, or edema. DIAGNOSTIC DATA: Sodium 134, potassium 3.9, chloride 97, bicarbonate 27, BUN of 19, creatinine 1.42. White count 10.1, hemoglobin 7.9, platelet count 241. ASSESSMENT AND PLAN: This is an 83-year-old female presenting with: 1. Right hand swelling, likely secondary to cellulitis, hematoma, questionable fall. 2. Gastrointestinal bleed with melena. 3. Hypertension. 4. Diabetes. 5. End-stage renal disease on hemodialysis. 6. History of falls. 7. Vascular dementia. 8. History of sepsis with VRE. 9. Dysphagia, status post G-tube. 10. History of hip fracture. 11. Thrombocytopenia. 12. Atherosclerotic heart disease. PLAN: At this period of time, the patient is admitted to med-surg. We will make sure the patient do es not get any Heparin IV antibiotics per primary team. Patient will also benefit from a CT scan. W e will continue the patient on hemodialysis. Patient is getting GI evaluation and an EGD today. Dictated By: JOSE RAUL FERNANDO/MADAN Conf#: [id number] DID#: [id number] CC: DYLON WALLS MD;*EndCC*
[2018-11-16] MEDS ORDERED: SODIUM CHLORIDE 0.9% 1L BAG IV PRN (15:00)
--- NOTE | 2018-11-16 15:28 | HP ---
DATE OF ADMISSION: 11/16/2018 REASON FOR ADMISSION: GI bleed, right hand, wrist swelling and severe hematoma. HISTORY OF PRESENT ILLNESS: The patient is an unfortunate 83-year-old [place] female, very frail wi th history of end-stage renal disease on dialysis 3 times a week with Dr. Juliocesar Stringer. The patient also has history of diastolic dysfunction heart failure, diabetes mellitus type 2 controlled, hyperte nsion, vascular dementia and anxiety disorder. Unfortunately, the patient is very anxious, high risk of fall and self-endangerment. The patient was recently admitted to [facility] to line sepsis and VRE bacteremia throughout her stay and she was here for more than 2 weeks. She was on for 1:1 sitter. The patient had to be placed on intermittent restraints at times and received anxiolytics and antipsychotics. The patient resides at [facility] as she was evaluated after she came back from the dialysis center that to have black stools. On top of carie t, there were reports of significant swelling of her right upper extremity. With all this in mind, i t was decided to send her to the emergency department for evaluation. Upon presentation, the patient 's hemoglobin was 7.9. X-rays done of the right hand showed the following: Extensive soft tissue sw elling involving the dorsum of the right hand and wrist, but no soft tissue gas or foreign body. No evidence of fracture, dislocation or erosions imaging evidence of an osteomyelitis, basically j ust swelling. Venous ultrasound shows no evidence of DVT of the right upper extremity. Probable lar ge complex fluid collection of the dorsum of the hand. CT or MRI with contrast may be helpful for fu rther evaluation. This was followed by the arterial study and shows unremarkable flow in the subclav christina, axillary and brachial arteries. Ultimately, the patient received antibiotics with Zosyn, morphi ne and Ativan were given as well. The patient was admitted to the medical/surgical floor for further care. Upon presentation, I already consulted Dr. Baird, the GI specialist and I also requested Dr. Stringer, the director of public safety, to see the patient in consultation for dialysis purposes and close antoinette corrales and Dr. Juan Miranda, the orthopedic doctor, due to her extensive right hand and wrist swelling, whic h is most likely due to possible hematoma and possible due to traumatic possible self-inflicting inju ry. I have left a message with the patient's daughter whose name is Alejandro. The patient otherwise is anxious, awaiting EGD. Also, case was discussed with dietary regarding bolus feeding. The patient is admitted for further care. The patient currently cannot provide any history. PAST MEDICAL HISTORY: Includes end-stage renal disease on dialysis 3 times a week, diabetes mellitus , anemia, osteoarthritis, COPD, diastolic dysfunction heart failure, dysphagia, moderate caloric-prot ein malnutrition. PAST SURGICAL HISTORY: Hip replacement surgery due to recent hip fracture, and G-tube plac ement. ALLERGIES: NO KNOWN DRUG ALLERGIES. FAMILY HISTORY: Noncontributory. SOCIAL HISTORY: The patient has a daughter whose name is Alejandro, who helps with care. The patient re sides at [facility]. REVIEW OF SYSTEMS: Per HPI. HOME MEDICATIONS: All reviewed at [facility]. They include the followin. Appropriate feeding and she is on pureed texture nectar consistently for oral gratification. 2. Tylenol p.r.n. 3. Ativan 0.5 q.8 p.r.n. 4. Colace 100 mg daily. 5. Depakote 125 t.i.d. This is for mood I started her. 6. Ferrous sulfate 325 b.i.d. 7. Folic acid 1 mg daily. 8. Hydralazine 25 t.i.d. 9. Insulin aspart per sliding scale. 10. Insulin Levemir 8 units daily. 11. Tradjenta 5 mg daily. 12. Metoprolol titrate 50 mg twice a day. 13. Norvasc 5 mg b.i.d. 14. Prevacid 30 mg daily. 15. Kianna-Roque 1 tab daily. 16. Senna 8.6 b.i.d. 17. Seroquel 50 mg b.i.d. PHYSICAL EXAMINATION: VITAL SIGNS: Temperature 96.6, pulse 62, respirations 16, blood pressure 145/65, saturation 95%. GENERAL: The patient is in no acute distress, resting comfortably, agitated. The patient has to be monitored. HEENT: The patient is pale, frail. CARDIOVASCULAR: S1, S2. Regular rate. LUNGS: Clear. Left IJ PermCath. EXTREMITIES: Right hand was remarkably swollen with a significant hematoma with decreased range of m otion at the right wrist movement due to the significant hematoma. There is no any erythema. It burch s not look infected. This appears to be just fluid collection causing severe swelling and skin tight ness making it very difficult for her to flex the hand. Arm is being elevated. LABORATORY DATA: White count is 10.1, hemoglobin 7.9, hematocrit 24, platelet count 241, neutrophils 80%, lymphocytes 10%. Chemistry: Sodium 134, potassium 3.9, chloride 97, bicarbonate 27, BUN is 19 , creatinine 1.42 and glucose of 195. AST 22, ALT 26, alkaline phosphatase is 78, albumin is 4.0. L ipase is elevated borderline at 343. The patient's INR is 0.94. The patient's PTT is high at 117, m ay be due to heparin administration. ASSESSMENT AND PLAN: This is an unfortunate 83-year-old with end-stage renal disease, chronic obstru ctive pulmonary disease, vascular dementia and cerebrovascular accident, who presents with gastrointe stinal bleed and the right hand and wrist swelling consistent with hematoma. 1. Rule out gastrointestinal bleed with black stools per report. GI will be consulted. The patient likely will undergo an EGD. Hold blood thinners. The patient will be placed on Protonix and transf use p.r.n. 2. Right hand and wrist swelling due to hematoma causing some compression. We will consult Dr. Bindu Miranda, the orthopedic doctor, for possible I and D and evaluation. The area does not look infected, but empirically the patient was started on antibiotics per Dr. Proctor. 3. End-stage renal disease. Dialysis 3 times a week. No evidence of fluid overload state. 4. Dysphagia. Continue pureed nectar for oral gratification and bolus feedings per dietary. A mess age was left with daughter. 5. Diabetes mellitus. Check Accu-Cheks. 6. Disposition once the above is addressed. 7. Clinically stable. 8. Hypertension. Continue with meds. Remains stable. 9. The patient is to be placed on 1:1 sitter due to anxiety. Continue antipsychotics and make sure patient is comfortable at all times. Long-term prognosis is overall guarded due to multiple medical issues. We will follow. Dictated By: DYLON HULL/MADAN Conf#: [id number] DID#: [id number] CC: CHRISS BAIRD MD;*End*
--- NOTE | 2018-11-16 16:48 | CONS ---
DATE OF ADMISSION: 11/16/2018 DATE OF CONSULTATION: 11/16/2018 TYPE OF CONSULTATION: Orthopedic surgical. HISTORY OF PRESENT ILLNESS: The patient is an 83-year-old female, a resident of [facility] with dementia, who was admitted on 11/16/2018 because of the extensive swelling involving the ri ght upper extremity along with the history of tarry stool. At the time of admission, she was afebrile and there was no leukocytosis; however, there was anemia w ith the hemoglobin of 7.9 and extensive swelling involving the right forearm, right wrist and right h and was noted. PAST MEDICAL HISTORY: She has multiple medical problems including end-stage renal disease on dialysi s, history of diastolic dysfunction, heart failure, diabetes mellitus type 2, hypertension, vascular dementia and anxiety disorder. On top of that, there was a recent tarry stool and history of septice gamaliel not too long ago, probably arising from the infection of the AV fistula. PHYSICAL EXAMINATION: My examination revealed an 83-year-old female who cannot participate in the hi story taking or physical examination. There was a rather extensive bulbous swelling involving both d orsal aspect and volar aspect of the hand extending upward along the wrist and forearm. There were n o signs of acute pyogenic process such as redness, increased warmth or acute tenderness. The range o f motion of the right fingers could not be assessed properly because of the extensive swelling. It f elt more like a collection of fluid under the skin rather than edema. DIAGNOSTIC DATA: X-rays of the right hand was showing extensive soft tissue swelling. DIAGNOSTIC IMPRESSION: Extensive bulbous swelling involving the right hand, right wrist and right fo rearm, possibly from extravasation of fluid or hematoma. TREATMENT PLAN: If we allow the skin to be pushed out by the extensive collection of fluid or hemato ma, the circulation to the skin will be compromised leading into the necrosis and destruction. For t hat reason, we should decompress the area as soon as possible in order to save the integrity of the s kin. Prior to any surgical intervention, MRI scan could be of help and this was ordered on an emerge ncy basis and the patient was tentatively scheduled for extensive incision and drainage in earliest c onvenience. Dictated By: CESARIO CARDOZO/MADAN Conf#: [id number] DID#: [id number] CC: DYLON WALLS MD; CHRISS WELCH MD;*End*
[2018-11-16 20:00] VITALS: BP 168/66; PULSE 86; RESP 18
--- NOTE | 2018-11-16 20:41 | CONS ---
Date/Time of Note Date/Time of Note DATE: 11/16/18 TIME: 20:32 Assessment/Plan Assessment/Plan Hospital Course Cardiovascular preop evaluation Right hand hematoma Renal failure on dialysis Hypertension Dementia Anemia Possible GI bleed Recommendations: I have ordered an baseline EKG and echocardiogram Dialysis as per renal team Her old chart was reviewed. In 2013 patient had a stress test which showed ejection fraction of 80% and no evidence of reversible ischemia considered a normal stress test at the time Based on above no further cardiac workup would be indicated. Continue with the blood pressure medication especially beta-farrah up to and including day of surgery Thank you for his referral. We will continue to follow along with you CHRISTEN ESCOBEDO MD [facility] Result Diagram: 11/16/187 11/16/18 0237 Results 24hrs Laboratory Tests Test 11/16/18 02:37 White Blood Count 10.1 # Red Blood Count 2.82 L Hemoglobin 7.9 L Hematocrit 23.9 L Mean Corpuscular Volume 84.8 Mean Corpuscular Hemoglobin 28.0 L Mean Corpuscular Hemoglobin Concent 33.1 Red Cell Distribution Width 14.9 H Platelet Count 241 Mean Platelet Volume 10.5 H Immature Granulocytes % 0.500 H Neutrophils % 79.8 H Lymphocytes % 10.3 L Monocytes % 7.0 Eosinophils % 2.2 Basophils % 0.2 Nucleated Red Blood Cells % 0.2 H Immature Granulocytes # 0.050 H Neutrophils # 8.1 H Lymphocytes # 1.0 Monocytes # 0.7 Eosinophils # 0.2 Basophils # 0.0 Nucleated Red Blood Cells # 0.0 Prothrombin Time 12.7 Prothrombin Time Ratio 1.0 INR International Normalized Ratio 0.94 Activated Partial Thromboplast Time 117.6 *H Sodium Level 134 L Potassium Level 3.9 Chloride Level 97 Carbon Dioxide Level 27 Anion Gap 10 Blood Urea Nitrogen 19 Creatinine 1.42 H Est Glomerular Filtrat Rate mL/min Glucose Level 195 Calcium Level 8.8 Total Bilirubin 0.7 Direct Bilirubin 0.00 Indirect Bilirubin 0.7 Aspartate Amino Transf (AST/SGOT) 32 Alanine Aminotransferase (ALT/SGPT) 26 Alkaline Phosphatase 78 Total Protein 7.7 Albumin 4.0 Globulin 3.70 H Albumin/Globulin Ratio 1.08 Lipase 343 H Consultation Date/Type/Reason Admit Date/Time Nov 16, 2018 at 05:51 Date of Consultation: Nov 16, 2018 Type of Consult cv Reason for Consultation cv preop evaluation Requesting Provider: DYLON WALLS MD Hx of Present Illness Interventional cardiology consultation note Chief complaint: hand hematoma Reason for consult: Cardia vascular preop evaluation History of present illness: Thank you for this referral. This is an unfortunate 83-year-old [place]ian female, with history of end-stage renal disease on dialysis , diastolic dysfunction heart failure, diabetes mellitus type 2 controlled, hypertension, vascular dementia and anxiety disorder who was admitted for upper extremity hematoma scheduled for I&D of the hematoma of the right hand and wrist. Patient himself is not able to provide any history to me and she is very confused and agitated.. The patient was recently admitted to [facility] due to line sepsis and VRE bacteremia throughout her stay and she was here for more than 2 weeks. She was on for 1:1 sitter. The patient had to be placed on intermittent restraints at times and received anxiolytics and antipsychotics. The patient resides at [facility] as she was evaluated after she came back from the [facility] that to have black stools. On top of that, there were reports of significant swelling of her right upper extremity. Upon presentation, the patient's hemoglobin was 7.9. X-rays done of the right hand showed the following: Extensive soft tissue swelling involving the dorsum of the right hand and wrist, but no soft tissue gas or foreign body. Patient has been scheduled for above procedure were kindly asked to evaluate and optimize prior to the surgery. Again patient has very limited activity is not able to provide any reliable history to me PAST MEDICAL HISTORY: Includes end-stage renal disease on dialysis 3 times a week, diabetes mellitus, anemia, osteoarthritis, COPD, diastolic dysfunction heart failure, dysphagia, moderate caloric-protein malnutrition. PAST SURGICAL HISTORY: Hip replacement surgery due to recent hip fracture, C- section and G-tube placement. ALLERGIES: NO KNOWN DRUG ALLERGIES. FAMILY HISTORY: Noncontributory. SOCIAL HISTORY: The patient has a daughter whose name is Alejandro, who helps with care. The patient resides at [facility]. REVIEW OF SYSTEMS: Per HPI. HOME MEDICATIONS: All reviewed at [facility]. They include the followin. Appropriate feeding and she is on pureed texture nectar consistently for oral gratification. 2. Tylenol p.r.n. 3. Ativan 0.5 q.8 p.r.n. 4. Colace 100 mg daily. 5. Depakote 125 t.i.d. This is for mood I started her. 6. Ferrous sulfate 325 b.i.d. 7. Folic acid 1 mg daily. 8. Hydralazine 25 t.i.d. 9. Insulin aspart per sliding scale. 10. Insulin Levemir 8 units daily. 11. Tradjenta 5 mg daily. 12. Metoprolol titrate 50 mg twice a day. 13. Norvasc 5 mg b.i.d. 14. Prevacid 30 mg daily. 15. Kianna-Roque 1 tab daily. 16. Senna 8.6 b.i.d. 17. Seroquel 50 mg b.i.d. Allergies: Medications were reviewed as per medical reconciliation sheet Family history: Social history: Past medical history: Review of system: Patient denies all others except for above-mentioned Past Medical History Medications Current Medications IV Flush (NS 3 ml) 3 ml PER PROTOCOL IV ; Start 11/16/18 at 09:00 Ondansetron HCl (Zofran Inj) 4 mg Q6H PRN IV NAUSEA AND/OR VOMITING; Start 11/16/18 at 09:00 Acetaminophen (Tylenol Tab) 650 mg Q6H PRN PO PAIN LEVEL 1-3 OR FEVER; Start 11/16/18 at 09:00 Acetaminophen/ Hydrocodone Bitart ([place] (5/325)) 1 tab Q6H PRN PO MODERATE PAIN LEVEL 4-6; Start 11/16/18 at 09:00 Morphine Sulfate (morphine SULFATE (PF)) 2 mg Q4H PRN IV SEVERE PAIN LEVEL 7- 10; Start 11/16/18 at 09:00 Docusate Sodium (Colace) 100 mg Q12H PRN PO CONSTIPATION; Start 11/16/18 at 09:00 Magnesium Hydroxide (Milk Of Mag) 30 ml DAILY PRN PO CONSTIPATION; Start 11/16/18 at 09:00 Vancomycin HCl (Vanco Iv Per Pharmacy) 1 ea NOTE XX ; Start 11/16/18 at 09:00 Amlodipine Besylate (Norvasc) 5 mg BID GTB Last administered on 11/16/18at 11:41; Admin Dose 5 MG; Start 11/16/18 at 09:00 Docusate Sodium (Colace) 100 mg DAILY PO ; Start 11/16/18 at 09:00 Folic Acid (Folic Acid) 1 mg DAILY GTB ; Start 11/16/18 at 09:00 Hydralazine HCl (Apresoline) 25 mg Q8 PO Last administered on 11/16/18at 14:20; Admin Dose 25 MG; Start 11/16/18 at 14:00 Albuterol/ Ipratropium (Duoneb) 3 ml Q6 PRN HHN sob; Start 11/16/18 at 09:00 Lansoprazole (Prevacid) 30 mg QAM PO ; Start 11/16/18 at 09:00 Linagliptin (Tradjenta) 5 mg DAILY GTB ; Start 11/16/18 at 09:00 Lorazepam (Ativan) 1 mg HS PRN GTB ANXIETY; Start 11/16/18 at 09:00 Metoprolol Tartrate (Lopressor) 50 mg BID GTB Last administered on 11/16/18at 11:41; Admin Dose 50 MG; Start 11/16/18 at 09:00 Quetiapine Fumarate (Seroquel) 25 mg BID GTB Last administered on 11/16/18at 11:41; Admin Dose 25 MG; Start 11/16/18 at 09:00 Senna (Senokot) 1 tab BID PO ; Start 11/16/18 at 09:00 Sevelamer Carbonate (Renvela) 0.8 gm WITH MEALS PO ; Start 11/16/18 at 11:30 Valproate Sodium (Depakene Liquid Cup) 250 mg Q8 PO Last administered on 11/16/18 14:20; Admin Dose 250 MG; Start 11/16/18 at 14:00 Piperacillin Sod/ Tazobactam Sod 50 ml @ 100 mls/hr Q8 IVPB Last administered on 11/16/18 14:20; Admin Dose 100 MLS/HR; Start 11/16/18 at 14:00 Vancomycin HCl 250 ml @ 125 mls/hr ONCE IVPB Last administered on 11/16/18 11:40; Admin Dose 125 MLS/HR; Start 11/16/18 at 11:00; Stop 11/16/18 at 23:59 Sodium Chloride (NS) -To prime the dialy... DIRECTED FOR HD PRN IV SBP<90; Start 11/16/18 at 15:00 Allergies: Coded Allergies: No Known Allergy (Unverified , 10/16/18) Social History Smoking Status: Never smoker Exam/Review of Systems Vital Signs Vitals Vital Signs Date Temp Pulse Resp B/P (MAP) Pulse Ox O2 O2 Flow FiO2 Time Delivery Rate 11/16/18 97.5 67 16 146/67 98 14:29 (93) 11/16/18 Room Air 13:01 Exam General: Elderly frail male in no acute distress HEENT: NC/AT. pupils are equal. round. NECK: NO JVD. no stridor. CV: RRR. systolic murmur; no gallop or rubs. PULM: no wheezing or rhonchi. GI: SOFT, NT, ND, no rebound or guarding Extremity: Right upper extremity is covered with dressing neuro: awake and alert, OX1 only. Psych: calm moment rectal: deferred An x-ray shows 1. Extensive soft-tissue swelling involving the dorsum of the right hand and wrist but no soft tissue gas or foreign body. 2. No evidence of fracture dislocation or erosions or plain imaging evidence of osteomyelitis. Medications Medications Current Medications IV Flush (NS 3 ml) 3 ml PER PROTOCOL IV ; Start 11/16/18 at 09:00 Ondansetron HCl (Zofran Inj) 4 mg Q6H PRN IV NAUSEA AND/OR VOMITING; Start 11/16/18 at 09:00 Acetaminophen (Tylenol Tab) 650 mg Q6H PRN PO PAIN LEVEL 1-3 OR FEVER; Start 11/16/18 at 09:00 Acetaminophen/ Hydrocodone Bitart ([place] (5/325)) 1 tab Q6H PRN PO MODERATE KIRAN N LEVEL 4-6; Start 11/16/18 at 09:00 Morphine Sulfate (morphine SULFATE (PF)) 2 mg Q4H PRN IV SEVERE PAIN LEVEL 7- 10; Start 11/16/18 at 09:00 Docusate Sodium (Colace) 100 mg Q12H PRN PO CONSTIPATION; Start 11/16/18 at 09:00 Magnesium Hydroxide (Milk Of Mag) 30 ml DAILY PRN PO CONSTIPATION; Start 11/16/18 at 09:00 Vancomycin HCl (Vanco Iv Per Pharmacy) 1 ea NOTE XX ; Start 11/16/18 at 09:00 Amlodipine Besylate (Norvasc) 5 mg BID GTB Last administered on 11/16/18 11:41; Admin Dose 5 MG; Start 11/16/18 at 09:00 Docusate Sodium (Colace) 100 mg DAILY PO ; Start 11/16/18 at 09:00 Folic Acid (Folic Acid) 1 mg DAILY GTB ; Start 11/16/18 at 09:00 Hydralazine HCl (Apresoline) 25 mg Q8 PO Last administered on 11/16/18 14:20; Admin Dose 25 MG; Start 11/16/18 at 14:00 Albuterol/ Ipratropium (Duoneb) 3 ml Q6 PRN HHN sob; Start 11/16/18 at 09:00 Lansoprazole (Prevacid) 30 mg QAM PO ; Start 11/16/18 at 09:00 Linagliptin (Tradjenta) 5 mg DAILY GTB ; Start 11/16/18 at 09:00 Lorazepam (Ativan) 1 mg HS PRN GTB ANXIETY; Start 11/16/18 at 09:00 Metoprolol Tartrate (Lopressor) 50 mg BID GTB Last administered on 11/16/18 11:41; Admin Dose 50 MG; Start 11/16/18 at 09:00 Quetiapine Fumarate (Seroquel) 25 mg BID GTB Last administered on 11/16/18 11:41; Admin Dose 25 MG; Start 11/16/18 at 09:00 Senna (Senokot) 1 tab BID PO ; Start 11/16/18 at 09:00 Sevelamer Carbonate (Renvela) 0.8 gm WITH MEALS PO ; Start 11/16/18 at 11:30 Valproate Sodium (Depakene Liquid Cup) 250 mg Q8 PO Last administered on 11/16/18 14:20; Admin Dose 250 MG; Start 11/16/18 at 14:00 Piperacillin Sod/ Tazobactam Sod 50 ml @ 100 mls/hr Q8 IVPB Last administered on 11/16/18 14:20; Admin Dose 100 MLS/HR; Start 11/16/18 at 14:00 Vancomycin HCl 250 ml @ 125 mls/hr ONCE IVPB Last administered on 11/16/18 11:40; Admin Dose 125 MLS/HR; Start 11/16/18 at 11:00; Stop 11/16/18 at 23:59 Sodium Chloride (NS) -To prime the dialy... DIRECTED FOR HD PRN IV SBP<90; Start 11/16/18 at 15:00 CHRISTEN ESCOBEDO MD Nov 16, 2018 20:41
[2018-11-16] MEDS: LORAZEPAM 1 MG TAB GTB PRN (22:10)
[2018-11-16 23:29] VITALS: BP 136/71
[2018-11-17] VITALS (22 sets, daily range): BP systolic 104–203; BP diastolic 48–95; PULSE 76–108; RESP 16–41
[2018-11-17] MEDS: VALPROIC ACID LIQUID CUP 250 MG/5 ML CUP PO SCH ×3 (05:12→21:10)
[2018-11-17] MEDS: PIPER-TAZO 2.25 GM (PMX) 50 ML IVPB SCH ×3 (05:44→21:09)
[2018-11-17] MEDS: SEVELAMER CARBONATE 0.8 GM PKT PO SCH ×3 (07:35→18:35)
--- NOTE | 2018-11-17 07:41 | PN ---
Date/Time of Note Date/Time of Note DATE: 11/17/18 TIME: 07:36 Assessment/Plan VTE Prophylaxis Risk score (from Ns)>0 risk: 8 SCD applied (from Ns): Yes Lines/Catheters IV Catheter Type (from Nrsg): Saline Lock Assessment/Plan Result Diagram: 11/17/18 0541 11/17/18 0541 Results 24hrs Laboratory Tests Test 11/17/18 05:41 11/17/18 06:10 White Blood Count 8.9 Red Blood Count 2.39 L Hemoglobin 6.8 *L Hematocrit 20.3 L Mean Corpuscular Volume 84.9 Mean Corpuscular Hemoglobin 28.5 L Mean Corpuscular Hemoglobin Concent 33.5 Red Cell Distribution Width 15.3 H Platelet Count 214 Mean Platelet Volume 11.7 H Immature Granulocytes % 0.700 H Neutrophils % Lymphocytes % Monocytes % Eosinophils % Basophils % Nucleated Red Blood Cells % 0.7 H Immature Granulocytes # 0.060 H Neutrophils # Lymphocytes # Monocytes # Eosinophils # Basophils # Nucleated Red Blood Cells # Sodium Level 137 Potassium Level 4.3 Chloride Level 98 Carbon Dioxide Level 28 Anion Gap 11 Blood Urea Nitrogen 32 #H Creatinine 2.30 H Est Glomerular Filtrat Rate mL/min Glucose Level 112 # Calcium Level 8.7 Phosphorus Level 4.0 Magnesium Level 2.2 Total Bilirubin 0.5 Direct Bilirubin 0.00 Indirect Bilirubin 0.5 Aspartate Amino Transf (AST/SGOT) 25 Alanine Aminotransferase (ALT/SGPT) 20 Alkaline Phosphatase 68 Total Protein 7.1 Albumin 3.8 Globulin 3.30 H Albumin/Globulin Ratio 1.15 Hemoglobin A1c 6.2 H Subjective 24 Hr Interval Summary Free Text/Dictation 83 yo female with ESRD (HD 3x/wk), diastolic dysfunction heart failure, DM2, htn, vascular dementia, s/p peg was recently in hospital for line sepsis and VRE bacteremia at which time we changed out a malfunctioning g tube at bedside. She was transferred from [facility] for black stools and found to have hgb of 7.9 which today has fallen to 6.8. Pt also has swelling of RUE, X rays shows extensive soft tissue swelling involving dorsum or right hand and wrist. Exam/Review of Systems Vital Signs Vitals Vital Signs Date Temp Pulse Resp B/P (MAP) Pulse Ox O2 O2 Flow FiO2 Time Delivery Rate 11/17/18 97.6 76 16 143/67 100 Room Air 02:01 (92) Intake and Output 11/16/18 11/16/18 11/17/18 1515:00 23:00 07:00 IntakeIntake Total 300 ml 50 ml 50 ml BalanceBalance 300 ml 50 ml 50 ml Medications Medications Current Medications IV Flush (NS 3 ml) 3 ml PER PROTOCOL IV ; Start 11/16/18 at 09:00 Ondansetron HCl (Zofran Inj) 4 mg Q6H PRN IV NAUSEA AND/OR VOMITING; Start 11/16/18 at 09:00 Acetaminophen (Tylenol Tab) 650 mg Q6H PRN PO PAIN LEVEL 1-3 OR FEVER; Start 11/16/18 at 09:00 Acetaminophen/ Hydrocodone Bitart ([place] (5/325)) 1 tab Q6H PRN PO MODERATE PAIN LEVEL 4-6; Start 11/16/18 at 09:00 Morphine Sulfate (morphine SULFATE (PF)) 2 mg Q4H PRN IV SEVERE PAIN LEVEL 7- 10; Start 11/16/18 at 09:00 Docusate Sodium (Colace) 100 mg Q12H PRN PO CONSTIPATION; Start 11/16/18 at 09:00 Magnesium Hydroxide (Milk Of Mag) 30 ml DAILY PRN PO CONSTIPATION; Start 11/16/18 at 09:00 Vancomycin HCl (Vanco Iv Per Pharmacy) 1 ea NOTE XX ; Start 11/16/18 at 09:00 Amlodipine Besylate (Norvasc) 5 mg BID GTB Last administered on 11/16/18at 21:18; Admin Dose 5 MG; Start 11/16/18 at 09:00 Docusate Sodium (Colace) 100 mg DAILY PO ; Start 11/16/18 at 09:00 Folic Acid (Folic Acid) 1 mg DAILY GTB ; Start 11/16/18 at 09:00 Hydralazine HCl (Apresoline) 25 mg Q8 PO Last administered on 11/16/18at 21:19; Admin Dose 25 MG; Start 11/16/18 at 14:00 Albuterol/ Ipratropium (Duoneb) 3 ml Q6 PRN HHN sob; Start 11/16/18 at 09:00 Lansoprazole (Prevacid) 30 mg QAM PO ; Start 11/16/18 at 09:00 Linagliptin (Tradjenta) 5 mg DAILY GTB ; Start 11/16/18 at 09:00 Lorazepam (Ativan) 1 mg HS PRN GTB ANXIETY Last administered on 11/16/18 22:10; Admin Dose 1 MG; Start 11/16/18 at 09:00 Metoprolol Tartrate (Lopressor) 50 mg BID GTB Last administered on 11/16/18 21:20; Admin Dose 50 MG; Start 11/16/18 at 09:00 Quetiapine Fumarate (Seroquel) 25 mg BID GTB Last administered on 11/16/18 21:18; Admin Dose 25 MG; Start 11/16/18 at 09:00 Senna (Senokot) 1 tab BID PO Last administered on 11/16/18 21:18; Admin Dose 1 TAB; Start 11/16/18 at 09:00 Sevelamer Carbonate (Renvela) 0.8 gm WITH MEALS PO ; Start 11/16/18 at 11:30 Valproate Sodium (Depakene Liquid Cup) 250 mg Q8 PO Last administered on 11/16/18 21:18; Admin Dose 250 MG; Start 11/16/18 at 14:00 Piperacillin Sod/ Tazobactam Sod 50 ml @ 100 mls/hr Q8 IVPB Last administered on 11/17/18 05:44; Admin Dose 100 MLS/HR; Start 11/16/18 at 14:00 Sodium Chloride (NS) -To prime the dialy... DIRECTED FOR HD PRN IV SBP<90; Start 11/16/18 at 15:00 TONY VENCES Nov 17, 2018 07:41
--- NOTE | 2018-11-17 07:57 | CONS ---
Date/Time of Note Date/Time of Note DATE: 11/17/18 TIME: 07:45 Assessment/Plan Assessment/Plan Hospital Course 83 yo female in ESRD on HD presents for melena and anemia and also found to have edematous Rt hand/wrist 1. UGIB manifested through melena and anemia 2. Anemia, acute on chronic 3. ESRD on HD -receiving HD currently 4. Edematous Rt hand and wrist -I and D today with Dr Dean 5. Dysphagia -on tube feeds and pureed nectar for oral gratification 6. DM2 7. HTN 8. H/O diastolic dysfunction heart failure Plan: 2 units PRBC with HD EGD today- NPO now, INR 0.94, No anti coagulants Monitor HH and for active GI bleeding Monitor lipase PPI BID Pt examined and plan of care discussed with Dr. Baird Result Diagram: 11/17/18 0541 11/17/18 0541 Results 24hrs Laboratory Tests Test 11/17/18 05:41 11/17/18 06:10 White Blood Count 8.9 Red Blood Count 2.39 L Hemoglobin 6.8 *L Hematocrit 20.3 L Mean Corpuscular Volume 84.9 Mean Corpuscular Hemoglobin 28.5 L Mean Corpuscular Hemoglobin Concent 33.5 Red Cell Distribution Width 15.3 H Platelet Count 214 Mean Platelet Volume 11.7 H Immature Granulocytes % 0.700 H Neutrophils % Lymphocytes % Monocytes % Eosinophils % Basophils % Nucleated Red Blood Cells % 0.7 H Immature Granulocytes # 0.060 H Neutrophils # Lymphocytes # Monocytes # Eosinophils # Basophils # Nucleated Red Blood Cells # Sodium Level 137 Potassium Level 4.3 Chloride Level 98 Carbon Dioxide Level 28 Anion Gap 11 Blood Urea Nitrogen 32 #H Creatinine 2.30 H Est Glomerular Filtrat Rate mL/min Glucose Level 112 # Calcium Level 8.7 Phosphorus Level 4.0 Magnesium Level 2.2 Total Bilirubin 0.5 Direct Bilirubin 0.00 Indirect Bilirubin 0.5 Aspartate Amino Transf (AST/SGOT) 25 Alanine Aminotransferase (ALT/SGPT) 20 Alkaline Phosphatase 68 Total Protein 7.1 Albumin 3.8 Globulin 3.30 H Albumin/Globulin Ratio 1.15 Hemoglobin A1c 6.2 H Consultation Date/Type/Reason Admit Date/Time Nov 16, 2018 at 05:51 Hx of Present Illness 83 yo female with ESRD (HD 3x/wk), diastolic dysfunction heart failure, DM2, htn, vascular dementia, s/p peg was recently in hospital for line sepsis and VRE bacteremia at which time we changed out a malfunctioning g tube at bedside. She was transferred from [facility] for black stools and found to have hgb of 7.9 which today has fallen to 6.8. Unable to get HPI from pt due to dementia and confusion. MANAGER LOCAL and RN deny any signs of GI bleeding. No bm. No coffee ground in g tube residuals. No n/v. Lipase is 343. WBC wnl. Afebrile. INR 0.94. Pt does not show any non verbal cues to pain during abdominal palpitation . Pt also has swelling of RUE, X rays shows extensive soft tissue swelling involving dorsum or right hand and wrist. Past Medical History Medications Current Medications IV Flush (NS 3 ml) 3 ml PER PROTOCOL IV ; Start 11/16/18 at 09:00 Ondansetron HCl (Zofran Inj) 4 mg Q6H PRN IV NAUSEA AND/OR VOMITING; Start 11/16/18 at 09:00 Acetaminophen (Tylenol Tab) 650 mg Q6H PRN PO PAIN LEVEL 1-3 OR FEVER; Start 11/16/18 at 09:00 Acetaminophen/ Hydrocodone Bitart ([place] (5/325)) 1 tab Q6H PRN PO MODERATE PAIN LEVEL 4-6; Start 11/16/18 at 09:00 Morphine Sulfate (morphine SULFATE (PF)) 2 mg Q4H PRN IV SEVERE PAIN LEVEL 7- 10; Start 11/16/18 at 09:00 Docusate Sodium (Colace) 100 mg Q12H PRN PO CONSTIPATION; Start 11/16/18 at 09:00 Magnesium Hydroxide (Milk Of Mag) 30 ml DAILY PRN PO CONSTIPATION; Start 11/16/18 at 09:00 Vancomycin HCl (Vanco Iv Per Pharmacy) 1 ea NOTE XX ; Start 11/16/18 at 09:00 Amlodipine Besylate (Norvasc) 5 mg BID GTB Last administered on 11/16/18at 21:18; Admin Dose 5 MG; Start 11/16/18 at 09:00 Docusate Sodium (Colace) 100 mg DAILY PO ; Start 11/16/18 at 09:00 Folic Acid (Folic Acid) 1 mg DAILY GTB ; Start 11/16/18 at 09:00 Hydralazine HCl (Apresoline) 25 mg Q8 PO Last administered on 11/16/18 21:19; Admin Dose 25 MG; Start 11/16/18 at 14:00 Albuterol/ Ipratropium (Duoneb) 3 ml Q6 PRN HHN sob; Start 11/16/18 at 09:00 Lansoprazole (Prevacid) 30 mg QAM PO ; Start 11/16/18 at 09:00 Linagliptin (Tradjenta) 5 mg DAILY GTB ; Start 11/16/18 at 09:00 Lorazepam (Ativan) 1 mg HS PRN GTB ANXIETY Last administered on 11/16/18at 22:10; Admin Dose 1 MG; Start 11/16/18 at 09:00 Metoprolol Tartrate (Lopressor) 50 mg BID GTB Last administered on 11/16/18 21:20; Admin Dose 50 MG; Start 11/16/18 at 09:00 Quetiapine Fumarate (Seroquel) 25 mg BID GTB Last administered on 11/16/18 21:18; Admin Dose 25 MG; Start 11/16/18 at 09:00 Senna (Senokot) 1 tab BID PO Last administered on 11/16/18 21:18; Admin Dose 1 TAB; Start 11/16/18 at 09:00 Sevelamer Carbonate (Renvela) 0.8 gm WITH MEALS PO ; Start 11/16/18 at 11:30 Valproate Sodium (Depakene Liquid Cup) 250 mg Q8 PO Last administered on 11/16/18at 21:18; Admin Dose 250 MG; Start 11/16/18 at 14:00 Piperacillin Sod/ Tazobactam Sod 50 ml @ 100 mls/hr Q8 IVPB Last administered on 11/17/18at 05:44; Admin Dose 100 MLS/HR; Start 11/16/18 at 14:00 Sodium Chloride (NS) -To prime the dialy... DIRECTED FOR HD PRN IV SBP<90; Start 11/16/18 at 15:00 Allergies: Coded Allergies: No Known Allergy (Unverified , 10/16/18) Social History Smoking Status: Never smoker Exam/Review of Systems Vital Signs Vitals Vital Signs Date Temp Pulse Resp B/P (MAP) Pulse Ox O2 O2 Flow FiO2 Time Delivery Rate 11/17/18 97.6 76 16 143/67 100 Room Air 02:01 (92) Intake and Output 11/16/18 11/16/18 11/17/18 1515:00 23:00 07:00 IntakeIntake Total 300 ml 50 ml 50 ml BalanceBalance 300 ml 50 ml 50 ml Exam Constitutional: alert Psych: confusion Head: normocephalic Eyes: nl sclera, PERRL Respiratory: clear to auscultation Cardiovascular: regular rate and rhythm Gastrointestinal: soft, non-tender Extremities: other (RUE is extremely edematous with blisters) 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: confused Skin: ecchymosis, other (poor turgor) Medications Medications Current Medications IV Flush (NS 3 ml) 3 ml PER PROTOCOL IV ; Start 11/16/18 at 09:00 Ondansetron HCl (Zofran Inj) 4 mg Q6H PRN IV NAUSEA AND/OR VOMITING; Start 11/16/18 at 09:00 Acetaminophen (Tylenol Tab) 650 mg Q6H PRN PO PAIN LEVEL 1-3 OR FEVER; Start 11/16/18 at 09:00 Acetaminophen/ Hydrocodone Bitart ([place] (5/325)) 1 tab Q6H PRN PO MODERATE PAIN LEVEL 4-6; Start 11/16/18 at 09:00 Morphine Sulfate (morphine SULFATE (PF)) 2 mg Q4H PRN IV SEVERE PAIN LEVEL 7- 10; Start 11/16/18 at 09:00 Docusate Sodium (Colace) 100 mg Q12H PRN PO CONSTIPATION; Start 11/16/18 at 09:00 Magnesium Hydroxide (Milk Of Mag) 30 ml DAILY PRN PO CONSTIPATION; Start 11/16/18 at 09:00 Vancomycin HCl (Vanco Iv Per Pharmacy) 1 ea NOTE XX ; Start 11/16/18 at 09:00 Amlodipine Besylate (Norvasc) 5 mg BID GTB Last administered on 11/16/18at 21:18; Admin Dose 5 MG; Start 11/16/18 at 09:00 Docusate Sodium (Colace) 100 mg DAILY PO ; Start 11/16/18 at 09:00 Folic Acid (Folic Acid) 1 mg DAILY GTB ; Start 11/16/18 at 09:00 Hydralazine HCl (Apresoline) 25 mg Q8 PO Last administered on 11/16/18 21:19; Admin Dose 25 MG; Start 11/16/18 at 14:00 Albuterol/ Ipratropium (Duoneb) 3 ml Q6 PRN HHN sob; Start 11/16/18 at 09:00 Lansoprazole (Prevacid) 30 mg QAM PO ; Start 11/16/18 at 09:00 Linagliptin (Tradjenta) 5 mg DAILY GTB ; Start 11/16/18 at 09:00 Lorazepam (Ativan) 1 mg HS PRN GTB ANXIETY Last administered on 11/16/18at 22:10; Admin Dose 1 MG; Start 11/16/18 at 09:00 Metoprolol Tartrate (Lopressor) 50 mg BID GTB Last administered on 11/16/18 21 :20; Admin Dose 50 MG; Start 11/16/18 at 09:00 Quetiapine Fumarate (Seroquel) 25 mg BID GTB Last administered on 11/16/18 21:18; Admin Dose 25 MG; Start 11/16/18 at 09:00 Senna (Senokot) 1 tab BID PO Last administered on 11/16/18 21:18; Admin Dose 1 TAB; Start 11/16/18 at 09:00 Sevelamer Carbonate (Renvela) 0.8 gm WITH MEALS PO ; Start 11/16/18 at 11:30 Valproate Sodium (Depakene Liquid Cup) 250 mg Q8 PO Last administered on 11/16/18 21:18; Admin Dose 250 MG; Start 11/16/18 at 14:00 Piperacillin Sod/ Tazobactam Sod 50 ml @ 100 mls/hr Q8 IVPB Last administered on 11/17/18at 05:44; Admin Dose 100 MLS/HR; Start 11/16/18 at 14:00 Sodium Chloride (NS) -To prime the dialy... DIRECTED FOR HD PRN IV SBP<90; Start 11/16/18 at 15:00 TONY VENCES Nov 17, 2018 07:57
[2018-11-17] MEDS: METOPROLOL 50 MG TAB GTB SCH ×2 (08:06→21:00)
[2018-11-17] MEDS: FOLIC ACID 1 MG TAB GTB SCH (08:06)
[2018-11-17] MEDS: QUETIAPINE 25 MG TAB GTB SCH ×2 (08:07→21:10)
[2018-11-17] MEDS: SENNA TAB PO SCH ×2 (08:07→21:10)
[2018-11-17] MEDS: LANSOPRAZOLE 30 MG CAP PO SCH (08:07)
[2018-11-17] MEDS: DOCUSATE SODIUM 100 MG CAP PO SCH (08:07)
[2018-11-17] MEDS: AMLODIPINE 5 MG TAB GTB SCH ×2 (08:07→21:00)
--- NOTE | 2018-11-17 08:57 | CONS ---
Date/Time of Note Date/Time of Note DATE: 11/17/18 TIME: 08:53 Consult Date/Type/Reason Admit Date/Time Nov 16, 2018 at 05:51 Initial Consult Date 11/16/18 Type of Consultation: cv Requesting Provider: DYLON WALLS MD Subjective cv follow up note Sl DW/ Staff pt remains intermittently very agitated and yelling no report of any chest pain or pressure or palpitations. O: General: Elderly frail male in no acute distress HEENT: NC/AT. pupils are equal. round. NECK: NO JVD. no stridor. CV: RRR. systolic murmur; no gallop or rubs. PULM: no wheezing or rhonchi. GI: SOFT, NT, ND, no rebound or guarding Extremity: Right upper extremity is covered with dressing neuro: awake and alert, OX1 only. Psych: agitated and yelling rectal: deferred An x-ray shows 1. Extensive soft-tissue swelling involving the dorsum of the right hand and wr ist but no soft tissue gas or foreign body. 2. No evidence of fracture dislocation or erosions or plain imaging evidence of osteomyelitis. review of old chart shows ECHO done Oct 2018: Normal left ventricular systolic function. Normal left ventricular cavity size. Moderate concentric left ventricular hypertrophy. Ejection fraction is visually estimated at 65 %. Abnormal Diastolic Function. Mitral valve leaflets appear moderately thickened. Moderate mitral annular calcification. Trace mitral regurgitation. Aortic valve not well visualized. No hemodynamically significant aortic stenosis by doppler. Aortic sclerosis without significant stenosis. Aortic cusps appear mildly calcified. Mild to moderate aortic valve regurgitation. Estimated peak PA systolic pressure 40 mmHg. Tricuspid valve appears moderately thickened. There is mild tricuspid regurgitation. ECG 11/16/18: NSR no ischemia Objective Vital Signs Date Temp Pulse Resp B/P (MAP) Pulse Ox O2 O2 Flow FiO2 Time Delivery Rate 11/17/18 97.6 76 16 143/67 100 Room Air 02:01 (92) Intake and Output 11/16/18 11/16/18 11/17/18 1515:00 23:00 07:00 IntakeIntake Total 300 ml 50 ml 50 ml BalanceBalance 300 ml 50 ml 50 ml Results/Medications Result Diagram: 11/17/18 0541 11/17/18 0541 Results 24 hrs Laboratory Tests Test 11/17/18 05:41 11/17/18 06:10 White Blood Count 8.9 Red Blood Count 2.39 L Hemoglobin 6.8 *L Hematocrit 20.3 L Mean Corpuscular Volume 84.9 Mean Corpuscular Hemoglobin 28.5 L Mean Corpuscular Hemoglobin Concent 33.5 Red Cell Distribution Width 15.3 H Platelet Count 214 Mean Platelet Volume 11.7 H Immature Granulocytes % 0.700 H Neutrophils % Lymphocytes % Monocytes % Eosinophils % Basophils % Nucleated Red Blood Cells % 0.7 H Immature Granulocytes # 0.060 H Neutrophils # Lymphocytes # Monocytes # Eosinophils # Basophils # Nucleated Red Blood Cells # Sodium Level 137 Potassium Level 4.3 Chloride Level 98 Carbon Dioxide Level 28 Anion Gap 11 Blood Urea Nitrogen 32 #H Creatinine 2.30 H Est Glomerular Filtrat Rate mL/min Glucose Level 112 # Calcium Level 8.7 Phosphorus Level 4.0 Magnesium Level 2.2 Total Bilirubin 0.5 Direct Bilirubin 0.00 Indirect Bilirubin 0.5 Aspartate Amino Transf (AST/SGOT) 25 Alanine Aminotransferase (ALT/SGPT) 20 Alkaline Phosphatase 68 Total Protein 7.1 Albumin 3.8 Globulin 3.30 H Albumin/Globulin Ratio 1.15 Hemoglobin A1c 6.2 H Medications Current Medications IV Flush (NS 3 ml) 3 ml PER PROTOCOL IV ; Start 11/16/18 at 09:00 Ondansetron HCl (Zofran Inj) 4 mg Q6H PRN IV NAUSEA AND/OR VOMITING; Start 11/16/18 at 09:00 Acetaminophen (Tylenol Tab) 650 mg Q6H PRN PO PAIN LEVEL 1-3 OR FEVER; Start 11/16/18 at 09:00 Acetaminophen/ Hydrocodone Bitart ([place] (5/325)) 1 tab Q6H PRN PO MODERATE PAIN LEVEL 4-6; Start 11/16/18 at 09:00 Morphine Sulfate (morphine SULFATE (PF)) 2 mg Q4H PRN IV SEVERE PAIN LEVEL 7- 10; Start 11/16/18 at 09:00 Docusate Sodium (Colace) 100 mg Q12H PRN PO CONSTIPATION; Start 11/16/18 at 09:00 Magnesium Hydroxide (Milk Of Mag) 30 ml DAILY PRN PO CONSTIPATION; Start 11/16/18 at 09:00 Vancomycin HCl (Vanco Iv Per Pharmacy) 1 ea NOTE XX ; Start 11/16/18 at 09:00 Amlodipine Besylate (Norvasc) 5 mg BID GTB Last administered on 11/16/18 21:18; Admin Dose 5 MG; Start 11/16/18 at 09:00 Docusate Sodium (Colace) 100 mg DAILY PO ; Start 11/16/18 at 09:00 Folic Acid (Folic Acid) 1 mg DAILY GTB ; Start 11/16/18 at 09:00 Hydralazine HCl (Apresoline) 25 mg Q8 PO Last administered on 11/16/18 21:19; Admin Dose 25 MG; Start 11/16/18 at 14:00 Albuterol/ Ipratropium (Duoneb) 3 ml Q6 PRN HHN sob; Start 11/16/18 at 09:00 Lansoprazole (Prevacid) 30 mg QAM PO ; Start 11/16/18 at 09:00 Linagliptin (Tradjenta) 5 mg DAILY GTB ; Start 11/16/18 at 09:00 Lorazepam (Ativan) 1 mg HS PRN GTB ANXIETY Last administered on 11/16/18at 22:10; Admin Dose 1 MG; Start 11/16/18 at 09:00 Metoprolol Tartrate (Lopressor) 50 mg BID GTB Last administered on 11/16/18 21:20; Admin Dose 50 MG; Start 11/16/18 at 09:00 Quetiapine Fumarate (Seroquel) 25 mg BID GTB Last administered on 11/16/18 21:18; Admin Dose 25 MG; Start 11/16/18 at 09:00 Senna (Senokot) 1 tab BID PO Last administered on 11/16/18 21:18; Admin Dose 1 TAB; Start 11/16/18 at 09:00 Sevelamer Carbonate (Renvela) 0.8 gm WITH MEALS PO ; Start 11/16/18 at 11:30 Valproate Sodium (Depakene Liquid Cup) 250 mg Q8 PO Last administered on 11/16/18 21:18; Admin Dose 250 MG; Start 11/16/18 at 14:00 Piperacillin Sod/ Tazobactam Sod 50 ml @ 100 mls/hr Q8 IVPB Last administered on 11/17/18at 05:44; Admin Dose 100 MLS/HR; Start 11/16/18 at 14:00 Sodium Chloride (NS) -To prime the dialy... DIRECTED FOR HD PRN IV SBP<90; Start 11/16/18 at 15:00 Pantoprazole (Protonix Iv) 40 mg BID@06,18 IV ; Start 11/17/18 at 18:00 Assessment/Plan Chief Complaint/Hosp Course Cardiovascular preop evaluation Right hand hematoma Renal failure on dialysis Hypertension Dementia Anemia Possible GI bleed AI Recommendations: transfusion with HD today Dialysis as per renal team Her old chart was reviewed. In 2013 patient had a stress test which showed ejection fraction of 80% and no evidence of reversible ischemia considered a normal stress test at the time Based on above no further cardiac workup would be indicated. Continue with the blood pressure medication especially beta-farrah up to and including day of surgery Thank you for his referral. We will continue to follow along with you CHRISTEN ESCOBEDO MD [facility] CHRISTEN ESCOBEDO MD Nov 17, 2018 08:57
[2018-11-17] MEDS: LINAGLIPTIN 5 MG TABLET GTB SCH (09:00)
[2018-11-17] MEDS ORDERED: HEPARIN 1000 UNITS/ML 10 ML INJ CATHETER ONE (10:30)
[2018-11-17] MEDS: morphine SULFATE/PF (2 MG/2 ML) SYG IV PRN ×2 (11:15→20:12)
--- NOTE | 2018-11-17 12:04 | RADRPT ---
Vent Rate: 88 bpm RR Interval: 0 msec DC Interval: 188 msec QRS Duration: 90 msec QT Interval: 400 msec QTC Interval: 484 msec P-R-T [place]: 86 - 97 - 87 degrees Normal sinus rhythm Rightward axis Minimal voltage criteria for LVH, may be normal variant Possible Anterior infarct , age undetermined Abnormal ECG Electronically Signed By: Jason Chandler [id number]
--- NOTE | 2018-11-17 12:06 | CONS ---
Date/Time of Note Date/Time of Note DATE: 11/17/18 TIME: 12:03 Assessment/Plan Assessment/Plan Assessment/Plan 83 y/o with 1. Right hand swelling, likely secondary to hematoma, questionable fall. with compression 2. Gastrointestinal bleed with melena. 3. Hypertension. 4. Diabetes. 5. End-stage renal disease on hemodialysis. 6. History of falls. 7. Vascular dementia. 8. History of sepsis with VRE. 9. Dysphagia, status post G-tube. 10. History of hip fracture. 11. Thrombocytopenia. 12. Atherosclerotic heart disease. Plan - HD today - I and D today - prbc today - EGD? pending - renally dose all meds Result Diagram: 11/17/18 0541 11/17/18 0541 Results 24hrs Laboratory Tests Test 11/17/18 05:28 11/17/18 05:41 11/17/18 06:10 11/17/18 09:14 Hepatitis B Surface NEGATIVE Antigen White Blood Count 8.9 Red Blood Count 2.39 L Hemoglobin 6.8 *L Hematocrit 20.3 L Mean Corpuscular Volume 84.9 Mean Corpuscular 28.5 L Hemoglobin Mean Corpuscular 33.5 Hemoglobin Concent Red Cell Distribution 15.3 H Width Platelet Count 214 Mean Platelet Volume 11.7 H Immature Granulocytes % 0.700 H Neutrophils % Segmented Neutrophils 73 % (Manual) Band Neutrophils % 3 (Manual) Lymphocytes % Lymphocytes % (Manual) 19 Monocytes % Eosinophils % Eosinophils % (Manual) 5 Basophils % Nucleated Red Blood 1 H Cells % Immature Granulocytes # 0.060 H Neutrophils # Neutrophils # (Manual) 6.5 Band Neutrophils # 0.2 Lymphocytes (Manual) 1.6 Lymphocytes # Monocytes # Eosinophils # Basophils # Nucleated Red Blood Cells # Platelet Estimate NORMAL Giant Platelets 1 H Polychromasia 1+ Basophilic Stippling 1+ Anisocytosis 1+ Microcytosis 1+ Spherocytes 1+ Sodium Level 137 Potassium Level 4.3 Chloride Level 98 Carbon Dioxide Level 28 Anion Gap 11 Blood Urea Nitrogen 32 #H Creatinine 2.30 H Est Glomerular Filtrat Rate mL/min Glucose Level 112 # Calcium Level 8.7 Phosphorus Level 4.0 Magnesium Level 2.2 Total Bilirubin 0.5 Direct Bilirubin 0.00 Indirect Bilirubin 0.5 Aspartate Amino 25 Transf (AST/SGOT) Alanine 20 Aminotransferase (ALT/SG PT) Alkaline Phosphatase 68 Total Protein 7.1 Albumin 3.8 Globulin 3.30 H Albumin/Globulin Ratio 1.15 Hemoglobin A1c 6.2 H Bedside Glucose 121 Consultation Date/Type/Reason Admit Date/Time Nov 16, 2018 at 05:51 Initial Consult Date 11/16/18 Requesting Provider: DYLON WALLS MD 24 HR Interval Summary Free Text/Dictation S/P HD today with PRBC Plan to do to I/D today Exam/Review of Systems Vital Signs Vitals Vital Signs Date Temp Pulse Resp B/P (MAP) Pulse Ox O2 O2 Flow FiO2 Time Delivery Rate 11/17/18 108 10:30 11/17/18 18 140/95 100 Room Air 10:30 (110) 11/17/18 97.6 02:01 Intake and Output 11/16/18 11/16/18 11/17/18 1515:00 23:00 07:00 IntakeIntake Total 300 ml 50 ml 50 ml BalanceBalance 300 ml 50 ml 50 ml Exam GENERAL: The patient is awake, alert; however, somewhat combative and confused in between. HEENT: Pupils equal, round, reactive to light. NECK: Supple. HEART: Regular rate and rhythm. LUNGS: Clear to auscultate bilaterally. CARDIOVASCULAR: Patient has a left IJ in place. Her right arm is extremely swollen, especially the fingers on the right hand, unable to open and close the fist. The patient has a marked swelling also on the right forearm tender to palpation. Patient has also noted multiple bruises. EXTREMITIES: No clubbing, cyanosis, or edema. Medications Medications Current Medications IV Flush (NS 3 ml) 3 ml PER PROTOCOL IV ; Start 11/16/18 at 09:00 Ondansetron HCl (Zofran Inj) 4 mg Q6H PRN IV NAUSEA AND/OR VOMITING; Start 11/16/18 at 09:00 Acetaminophen (Tylenol Tab) 650 mg Q6H PRN PO PAIN LEVEL 1-3 OR FEVER; Start 11/16/18 at 09:00 Acetaminophen/ Hydrocodone Bitart ([place] (5/325)) 1 tab Q6H PRN PO MODERATE PAIN LEVEL 4-6; Start 11/16/18 at 09:00 Morphine Sulfate (morphine SULFATE (PF)) 2 mg Q4H PRN IV SEVERE PAIN LEVEL 7-10 Last administered on 11/17/18at 11:15; Admin Dose 2 MG; Start 11/16/18 at 09:00 Docusate Sodium (Colace) 100 mg Q12H PRN PO CONSTIPATION; Start 11/16/18 at 09:00 Magnesium Hydroxide (Milk Of Mag) 30 ml DAILY PRN PO CONSTIPATION; Start 11/16/18 at 09:00 Vancomycin HCl (Vanco Iv Per Pharmacy) 1 ea NOTE XX ; Start 11/16/18 at 09:00 Amlodipine Besylate (Norvasc) 5 mg BID GTB Last administered on 11/16/18 21:18; Admin Dose 5 MG; Start 11/16/18 at 09:00 Docusate Sodium (Colace) 100 mg DAILY PO ; Start 11/16/18 at 09:00 Folic Acid (Folic Acid) 1 mg DAILY GTB ; Start 11/16/18 at 09:00 Hydralazine HCl (Apresoline) 25 mg Q8 PO Last administered on 11/16/18 21:19; Admin Dose 25 MG; Start 11/16/18 at 14:00 Albuterol/ Ipratropium (Duoneb) 3 ml Q6 PRN HHN sob; Start 11/16/18 at 09:00 Lansoprazole (Prevacid) 30 mg QAM PO ; Start 11/16/18 at 09:00 Linagliptin (Tradjenta) 5 mg DAILY GTB ; Start 11/16/18 at 09:00 Lorazepam (Ativan) 1 mg HS PRN GTB ANXIETY Last administered on 11/16/18at 22:10; Admin Dose 1 MG; Start 11/16/18 at 09:00 Metoprolol Tartrate (Lopressor) 50 mg BID GTB Last administered on 11/16/18at 21:20; Admin Dose 50 MG; Start 11/16/18 at 09:00 Quetiapine Fumarate (Seroquel) 25 mg BID GTB Last administered on 11/16/18 21:18; Admin Dose 25 MG; Start 11/16/18 at 09:00 Senna (Senokot) 1 tab BID PO Last administered on 11/16/18 21:18; Admin Dose 1 TAB; Start 11/16/18 at 09:00 Sevelamer Carbonate (Renvela) 0.8 gm WITH MEALS PO ; Start 11/16/18 at 11:30 Valproate Sodium (Depakene Liquid Cup) 250 mg Q8 PO Last administered on 11/16/18at 21:18; Admin Dose 250 MG; Start 11/16/18 at 14:00 Piperacillin Sod/ Tazobactam Sod 50 ml @ 100 mls/hr Q8 IVPB Last administered on 11/17/18at 05:44; Admin Dose 100 MLS/HR; Start 11/16/18 at 14:00 Sodium Chloride (NS) -To prime the dialy... DIRECTED FOR HD PRN IV SBP<90; S tart 11/16/18 at 15:00 Pantoprazole (Protonix Iv) 40 mg BID@06,18 IV ; Start 11/17/18 at 18:00 Hydralazine HCl (Apresoline) 10 mg Q4H PRN IV ELEVATED BLOOD PRESSURE; Start 11/17/18 at 10:30 Miscellaneous Information (*Rx Drug Level Order Reminder*) VANCO RANDOM @ 0,500 ONCE ONCE XX ; Start 11/18/18 at 05:00; Stop 11/18/18 at 05:01 JOSE RAUL ANDREWS MD Nov 17, 2018 12:06
--- NOTE | 2018-11-17 12:35 | PREAC ---
Date/Time of Note Date/Time of Note DATE: 11/17/18 TIME: 12:31 Anesthesia Eval and Record Evaluation Time Pre-Procedure Interview DATE: 11/17/18 TIME: 12:31 Age 83 Sex female NPO: 8 hrs Preoperative diagnosis right hand hematoma Planned procedure i and d right hand and wrist hematoma Past Medical History Past Medical History: Includes Cardio: HTN, CHF Endo: Diabetes Pulm: COPD Neuro: CVA Renal: ESRD on dialysis Heme: Anemia Surgery & Anesthesia Issues No known issue Meds Anticoagulation: No Beta Magalys within 24 hr: Yes Reported Medications Sennosides* (Senna Lax*) 8.6 Mg Tablet, 1 TAB PO BID, TAB 11/16/18 Sevelamer Carbonate* (Renvela*) 0.8 Gm Powd.pack, 0.8 GM PO WITH MEALS, PACKET 11/16/18 Lansoprazole* (Lansoprazole*) 30 Mg Capsule.dr, 30 MG PO QAM, CAP 11/16/18 Hydralazine Hcl* (Hydralazine Hcl*) 25 Mg Tab, 25 MG PO Q8, #90 TAB 11/16/18 Ferrous Sulfate* (Ferrous Sulfate*) 325 Mg Tabec, 325 MG PO BID for anemia, TAB 11/16/18 Valproate Sodium (Valproic Acid) 250 Mg/5 Ml Solution, 250 MG PO Q8, ML 11/16/18 Insulin Aspart* (Novolog Insulin Pen*) 100 Unit/Ml Soln, 0 SC .SLIDING SCALE AC, EA IF BS 160-200=2 UNITS,201-250=4 UNITS,251-300=8 UNITS,301-350=12 UNITS;351-400=16 UNITS THEN CALL . 10/16/18 Ondansetron Hcl* (Zofran*) 4 Mg Tab, 4 MG GTB Q4H PRN for NAUSEA AND OR VOMITING, TAB 10/16/18 Linagliptin (TRADJENTA) 5 Mg Tablet, 5 MG GTB DAILY, TAB 10/16/18 Quetiapine Fumarate* (Seroquel*) 25 Mg Tablet, 25 MG GTB BID, #60 TAB 10/16/18 [Nephro-Roque] No Conflict Check, 0.8 MG GTB DAILY 10/16/18 Polyethylene Glycol* (Miralax*) 17 Gm Powd.pack, 17 GM GTB Q24H, #30 PACKET 10/16/18 Metoprolol Tartrate* (Lopressor*) 50 Mg Tab, 50 MG GTB DAILY, #60 TAB Q MON,WED,FRI,SUN,HOLD FOR SBP<110 OR AZ<60 10/16/18 Metoprolol Tartrate* (Lopressor*) 50 Mg Tab, 50 MG GTB BID, #60 TAB QTUE,ANDREW,SAT,HOLD FOR SBP<110 OR AZ<60 10/16/18 Linaclotide (LINZESS) 145 Mcg Capsule, 145 MCG GTB DAILY, #30 CAP 10/16/18 Ipratropium-Albuterol (Ipratropium-Albuterol) 0.5-3 Mg/3 Ml Ampul.neb, 3 ML INHALATION Q6, #30 VIAL FOR 14 DAYS,STOP DATE 10/17/18 10/16/18 Hydralazine Hcl* (Hydralazine Hcl*) 25 Mg Tab, 25 MG GTB DAILY, #60 TAB Q TUE,ANDREW,SAT,HOLD IF SBP<110 OR [place]<60 10/16/18 Folic Acid* (Folic Acid*) 1 Mg Tablet, 1 MG GTB DAILY, TAB 10/16/18 Docusate Sodium* (Colace*) 100 Mg Capsule, 100 MG GTB DAILY, #30 CAP 10/16/18 Lorazepam* (Lorazepam*) 1 Mg Tablet, 1 MG GTB HS PRN for ANXIETY, #30 TAB Q TUE,ANDREW,SAT 10/16/18 Amlodipine Besylate* (Norvasc*) 5 Mg Tablet, 5 MG GTB BID, TAB TAKE Q TUE,ANDREW,SAT FOR HTN, HOLD FOR SBP<110 OR AZ<60 10/16/18 Acetaminophen* (Acetaminophen*) 650 Mg Tablet, 650 MG GTB Q6H PRN for PAIN LEVEL 1-1010, #30 TAB 10/16/18 Discontinued Reported Medications Cholecalciferol (Vitamin D3) 400 Unit Tablet, 800 UNIT GTB DAILY, TAB 10/16/18 Sevelamer Carbonate* (Renvela*) 800 Mg Tablet, 0.8 GM GTB BID, TAB 10/16/18 Pantoprazole* (Protonix*) 40 Mg Tablet.dr, 40 MG GTB QAM, TAB 10/16/18 Calcium Carbonate/Vitamin D3 (OYSTER SHELL 500 MG + VIT D TB) 1 Each Tablet, 1 EACH GTB BID, TAB 10/16/18 Insulin Detemir (Levemir Flextouch) 100 Unit/1 Ml Insuln.pen, 18 UNIT SQ DAILY, EA 10/16/18 Ferrous Sulfate* (Ferrous Sulfate*) 220 Mg/5 Ml Solution, 7.5 ML GTB BID, ML 10/16/18 Clonidine Patch (CLONIDINE PATCH) 0.2 Mg/24 Hr Patch, 1 PATCH.WK TD Q SUN, #4 PATCH.WK 10/16/18 Amlodipine Besylate* (Norvasc*) 5 Mg Tablet, 5 MG GTB BID, TAB TAKE Q MON,WED,FRI,SUN,HOLD FOR SBP<110 OR [place]<60 10/16/18 Current Medications IV Flush (NS 3 ml) 3 ml PER PROTOCOL IV ; Start 11/16/18 at 09:00 Ondansetron HCl (Zofran Inj) 4 mg Q6H PRN IV NAUSEA AND/OR VOMITING; Start 11/16/18 at 09:00 Acetaminophen (Tylenol Tab) 650 mg Q6H PRN PO PAIN LEVEL 1-3 OR FEVER; Start 11/16/18 at 09:00 Acetaminophen/ Hydrocodone Bitart ([place] (5/325)) 1 tab Q6H PRN PO MODERATE PAIN LEVEL 4-6; Start 11/16/18 at 09:00 Morphine Sulfate (morphine SULFATE (PF)) 2 mg Q4H PRN IV SEVERE PAIN LEVEL 7-10 Last administered on 11/17/18at 11:15; Admin Dose 2 MG; Start 11/16/18 at 09:00 Docusate Sodium (Colace) 100 mg Q12H PRN PO CONSTIPATION; Start 11/16/18 at 09:00 Magnesium Hydroxide (Milk Of Mag) 30 ml DAILY PRN PO CONSTIPATION; Start 11/16/18 at 09:00 Vancomycin HCl (Vanco Iv Per Pharmacy) 1 ea NOTE XX ; Start 11/16/18 at 09:00 Amlodipine Besylate (Norvasc) 5 mg BID GTB Last administered on 11/16/18at 21:18; Admin Dose 5 MG; Start 11/16/18 at 09:00 Docusate Sodium (Colace) 100 mg DAILY PO ; Start 11/16/18 at 09:00 Folic Acid (Folic Acid) 1 mg DAILY GTB ; Start 11/16/18 at 09:00 Hydralazine HCl (Apresoline) 25 mg Q8 PO Last administered on 11/16/18at 21:19; Admin Dose 25 MG; Start 11/16/18 at 14:00 Albuterol/ Ipratropium (Duoneb) 3 ml Q6 PRN HHN sob; Start 11/16/18 at 09:00 Lansoprazole (Prevacid) 30 mg QAM PO ; Start 11/16/18 at 09:00 Linagliptin (Tradjenta) 5 mg DAILY GTB ; Start 11/16/18 at 09:00 Lorazepam (Ativan) 1 mg HS PRN GTB ANXIETY Last administered on 11/16/18at 22:10; Admin Dose 1 MG; Start 11/16/18 at 09:00 Metoprolol Tartrate (Lopressor) 50 mg BID GTB Last administered on 11/16/18at 21:20; Admin Dose 50 MG; Start 11/16/18 at 09:00 Quetiapine Fumarate (Seroquel) 25 mg BID GTB Last administered on 11/16/18at 21:18; Admin Dose 25 MG; Start 11/16/18 at 09:00 Senna (Senokot) 1 tab BID PO Last administered on 11/16/18at 21:18; Admin Dose 1 TAB; Start 11/16/18 at 09:00 Sevelamer Carbonate (Renvela) 0.8 gm WITH MEALS PO ; Start 11/16/18 at 11:30 Valproate Sodium (Depakene Liquid Cup) 250 mg Q8 PO Last administered on 11/16/18at 21:18; Admin Dose 250 MG; Start 11/16/18 at 14:00 Piperacillin Sod/ Tazobactam Sod 50 ml @ 100 mls/hr Q8 IVPB Last administered on 11/17/18at 05:44; Admin Dose 100 MLS/HR; Start 11/16/18 at 14:00 Sodium Chloride (NS) -To prime the dialy... DIRECTED FOR HD PRN IV SBP<90; Start 11/16/18 at 15:00 Pantoprazole (Protonix Iv) 40 mg BID@06,18 IV ; Start 11/17/18 at 18:00 Hydralazine HCl (Apresoline) 10 mg Q4H PRN IV ELEVATED BLOOD PRESSURE; Start 11/17/18 at 10:30 Miscellaneous Information (*Rx Drug Level Order Reminder*) VANCO RANDOM @ 0,500 ONCE ONCE XX ; Start 11/18/18 at 05:00; Stop 11/18/18 at 05:01 Meds reviewed: Yes Allergies Coded Allergies: No Known Allergy (Unverified , 10/16/18) Allergies Reviewed: Yes Labs/Studies Labs Reviewed: Reviewed by anesthesiologist Result Diagram: 11/17/18 0541 11/17/18 0541 Laboratory Tests 11/17/18 05:41 Blood Bank Test 11/16/18 16:26 Antibody Screen NEGATIVE Blood Product Summary Counts Blood Type A POSITIVE Crossmatch Red Blood Cells test: N/A Studies: ECG, CXR Pre-procedure Exam Last vitals Vital Signs Date Temp Pulse Resp B/P (MAP) Pulse Ox O2 O2 Flow FiO2 Time Delivery Rate 11/17/18 108 10:30 11/17/18 18 140/95 100 Room Air 10:30 (110) 11/17/18 98.3 07:00 Airway: Adequate mouth opening, Adequate thyromental dist Mallampati: Mallampati I Teeth: Normal Lung: Normal Heart: Normal ASA Physical Status ASA physical status: 3 Emergency: None Planned Anesthetic General/MAC: LMA Planned Pain Management Parenteral pain med Pre-operative Attestations Prior to commencing anesthesia and surgery, the patient was re-evaluated, there was verification of: *The patient's identity *The results of appropriate recent lab work and preoperative vital signs *The above evaluation not changing prior to induction *Anesthetic plan, risk benefits, alternative and complications discussed with patient/family; questions answered; patient/family understands, accepts and wishes to proceed. KEON REYNA Nov 17, 2018 12:35
[2018-11-17] MEDS ORDERED: PROPOFOL 20 ML ONE (12:40)
[2018-11-17] MEDS ORDERED: FENTAnyl 50 MCG/ML VIAL ONE (13:14)
[2018-11-17] MEDS ORDERED: POLYMYXIN B 500000 UNIT INJ ONE (13:16)
--- NOTE | 2018-11-17 13:19 | HPN ---
Date/Time of Note Date/Time of Note DATE: 11/17/18 TIME: 13:18 Interval H&P Admission Note Pt. seen H&P reviewed: No system changes LADONNA RIVERA MD Nov 17, 2018 13:19
[2018-11-17] MEDS ORDERED: CEFAZOLIN 1 GM INJ ONE (13:37)
[2018-11-17] MEDS ORDERED: DEXAMETHASONE 4 MG/ML 5 ML INJ ONE (13:37)
[2018-11-17] MEDS ORDERED: ONDANSETRON 4 MG INJ ONE (13:37)
--- NOTE | 2018-11-17 14:20 | CONS ---
Date/Time of Note Date/Time of Note DATE: 11/17/18 TIME: 14:16 Assessment/Plan Assessment/Plan Hospital Course No acute changes WBC 8.9 H&H 6.8 and 20.3 platelets 214 X-ray of the hand revealed extensive soft tissue swelling no soft tissue gas or foreign body, no evidence of fracture or dislocation or evidence of oste omyelitis. Ultrasound revealed no evidence for DVT. Arterial study was unremarkable Blood cultures negative Antimicrobials: Vanco, Zosyn Indwelling: Left chest permacath, PEG Physical examination: Chronically ill-appearing elderly woman who is awake, confused, in no distress. Head atraumatic normocephalic. Neck is supple. Chest rise symmetrical breath sounds diminished bases. Heart: S1-S2. Abdomen soft bowel sounds present extremities without R FA edema/erythema Assessment: 1. Right hand cellulitis 2. Status post VRE bacteremia, status post new Pcath 3. End-stage renal disease, hemodialysis dependent 4. Dementia 5. Failure to thrive 6. Diabetes 8. Anemia Plan: Clinically stable, continue antibiotics, await for surgical intervention, blood transfusion per primary Result Diagram: 11/17/18 0541 11/17/18 0541 Results 24hrs Laboratory Tests Test 11/17/18 05:28 11/17/18 05:41 11/17/18 06:10 11/17/18 09:14 Hepatitis B Surface NEGATIVE Antigen White Blood Count 8.9 Red Blood Count 2.39 L Hemoglobin 6.8 *L Hematocrit 20.3 L Mean Corpuscular Volume 84.9 Mean Corpuscular 28.5 L Hemoglobin Mean Corpuscular 33.5 Hemoglobin Concent Red Cell Distribution 15.3 H Width Platelet Count 214 Mean Platelet Volume 11.7 H Immature Granulocytes % 0.700 H Neutrophils % Segmented Neutrophils 73 % (Manual) Band Neutrophils % 3 (Manual) Lymphocytes % Lymphocytes % (Manual) 19 Monocytes % Eosinophils % Eosinophils % (Manual) 5 Basophils % Nucleated Red Blood 1 H Cells % Immature Granulocytes # 0.060 H Neutrophils # Neutrophils # (Manual) 6.5 Band Neutrophils # 0.2 Lymphocytes (Manual) 1.6 Lymphocytes # Monocytes # Eosinophils # Basophils # Nucleated Red Blood Cells # Platelet Estimate NORMAL Giant Platelets 1 H Polychromasia 1+ Basophilic Stippling 1+ Anisocytosis 1+ Microcytosis 1+ Spherocytes 1+ Sodium Level 137 Potassium Level 4.3 Chloride Level 98 Carbon Dioxide Level 28 Anion Gap 11 Blood Urea Nitrogen 32 #H Creatinine 2.30 H Est Glomerular Filtrat Rate mL/min Glucose Level 112 # Calcium Level 8.7 Phosphorus Level 4.0 Magnesium Level 2.2 Total Bilirubin 0.5 Direct Bilirubin 0.00 Indirect Bilirubin 0.5 Aspartate Amino 25 Transf (AST/SGOT) Alanine 20 Aminotransferase (ALT/SG PT) Alkaline Phosphatase 68 Total Protein 7.1 Albumin 3.8 Globulin 3.30 H Albumin/Globulin Ratio 1.15 Hemoglobin A1c 6.2 H Bedside Glucose 121 Consultation Date/Type/Reason Admit Date/Time Nov 16, 2018 at 05:51 Initial Consult Date 11/16/18 Type of Consult id Requesting Provider: DYLON WALLS MD Exam/Review of Systems Vital Signs Vitals Vital Signs Date Temp Pulse Resp B/P (MAP) Pulse Ox O2 O2 Flow FiO2 Time Delivery Rate 11/17/18 108 10:30 11/17/18 18 140/95 100 Room Air 10:30 (110) 11/17/18 98.3 07:00 Intake and Output 11/16/18 11/16/18 11/17/18 1515:00 23:00 07:00 IntakeIntake Total 300 ml 50 ml 50 ml BalanceBalance 300 ml 50 ml 50 ml Medications Medications Current Medications IV Flush (NS 3 ml) 3 ml PER PROTOCOL IV ; Start 11/16/18 at 09:00 Ondansetron HCl (Zofran Inj) 4 mg Q6H PRN IV NAUSEA AND/OR VOMITING; Start 11/16/18 at 09:00 Acetaminophen (Tylenol Tab) 650 mg Q6H PRN PO PAIN LEVEL 1-3 OR FEVER; Start 11/16/18 at 09:00 Acetaminophen/ Hydrocodone Bitart ([place] (5/325)) 1 tab Q6H PRN PO MODERATE PAIN LEVEL 4-6; Start 11/16/18 at 09:00 Morphine Sulfate (morphine SULFATE (PF)) 2 mg Q4H PRN IV SEVERE PAIN LEVEL 7-10 Last administered on 11/17/18at 11:15; Admin Dose 2 MG; Start 11/16/18 at 09:00 Docusate Sodium (Colace) 100 mg Q12H PRN PO CONSTIPATION; Start 11/16/18 at 09:00 Magnesium Hydroxide (Milk Of Mag) 30 ml DAILY PRN PO CONSTIPATION; Start 11/16/18 at 09:00 Vancomycin HCl (Vanco Iv Per Pharmacy) 1 ea NOTE XX ; Start 11/16/18 at 09:00 Amlodipine Besylate (Norvasc) 5 mg BID GTB Last administered on 11/16/18 21:18; Admin Dose 5 MG; Start 11/16/18 at 09:00 Docusate Sodium (Colace) 100 mg DAILY PO ; Start 11/16/18 at 09:00 Folic Acid (Folic Acid) 1 mg DAILY GTB ; Start 11/16/18 at 09:00 Hydralazine HCl (Apresoline) 25 mg Q8 PO Last administered on 11/16/18 21:19; Admin Dose 25 MG; Start 11/16/18 at 14:00 Albuterol/ Ipratropium (Duoneb) 3 ml Q6 PRN HHN sob; Start 11/16/18 at 09:00 Lansoprazole (Prevacid) 30 mg QAM PO ; Start 11/16/18 at 09:00 Linagliptin (Tradjenta) 5 mg DAILY GTB ; Start 11/16/18 at 09:00 Lorazepam (Ativan) 1 mg HS PRN GTB ANXIETY Last administered on 11/16/18at 22:10; Admin Dose 1 MG; Start 11/16/18 at 09:00 Metoprolol Tartrate (Lopressor) 50 mg BID GTB Last administered on 11/16/18at 21:20; Admin Dose 50 MG; Start 11/16/18 at 09:00 Quetiapine Fumarate (Seroquel) 25 mg BID GTB Last administered on 11/16/18 21:18; Admin Dose 25 MG; Start 11/16/18 at 09:00 Senna (Senokot) 1 tab BID PO Last administered on 11/16/18 21:18; Admin Dose 1 TAB; Start 11/16/18 at 09:00 Sevelamer Carbonate (Renvela) 0.8 gm WITH MEALS PO ; Start 11/16/18 at 11:30 Valproate Sodium (Depakene Liquid Cup) 250 mg Q8 PO Last administered on 11/16/18at 21:18; Admin Dose 250 MG; Start 11/16/18 at 14:00 Piperacillin Sod/ Tazobactam Sod 50 ml @ 100 mls/hr Q8 IVPB Last administered on 11/17/18at 05:44; Admin Dose 100 MLS/HR; Start 11/16/18 at 14:00 Sodium Chloride (NS) -To prime the dialy... DIRECTED FOR HD PRN IV SBP<90; Start 11/16/18 at 15:00 Pantoprazole (Protonix Iv) 40 mg BID@06,18 IV ; Start 11/17/18 at 18:00 Hydralazine HCl (Apresoline) 10 mg Q4H PRN IV ELEVATED BLOOD PRESSURE; Start 11/17/18 at 10:30 Miscellaneous Information (*Rx Drug Level Order Reminder*) VANCO RANDOM @ 0,500 ONCE ONCE XX ; Start 11/18/18 at 05:00; Stop 11/18/18 at 05:01 PHYLICIA HOLCOMB NP Nov 17, 2018 14:20
--- NOTE | 2018-11-17 14:28 | PAC ---
Date/Time of Note Date/Time of Note DATE: 11/17/18 TIME: 14:26 Post-Anesthesia Notes Post-Anesthesia Note Last documented vital signs Vital Signs Date Temp Pulse Resp B/P (MAP) Pulse Ox O2 O2 Flow FiO2 Time Delivery Rate 11/17/18 98.0 108 17 190/89 100 1426 11/17/18 18 140/95 100 Room Air 10:30 (110) 11/17/18 98.3 07:00 Activity: WNL Respiratory function: WNL Cardiovascular function: WNL Mental status: Baseline Pain reasonably controlled: Yes Hydration appropriate: Yes Nausea/Vomiting absent: Yes Comments will treat increased blood pressure with labetalol KEON REYNA Nov 17, 2018 14:28
[2018-11-17] MEDS ORDERED: BACITRACIN 50000 UNITS INJ IRR ONE (14:29)
[2018-11-17] MEDS ORDERED: NACL 0.9% 3 ML SYG IV SCH (14:30)
[2018-11-17] MEDS ORDERED: KETOROLAC 30 MG INJ IV PRN (14:30)
[2018-11-17] MEDS ORDERED: LABETALOL HCL 20MG INJ IV PRN (14:30)
[2018-11-17] MEDS ORDERED: ONDANSETRON 4 MG INJ IV PRN (14:30)
[2018-11-17] MEDS ORDERED: MIDAZOLAM 1 MG/ML 2 ML INJ IV PRN (14:30)
[2018-11-17] MEDS ORDERED: morphine 2 MG INJ IV PRN (14:30)
[2018-11-17] MEDS ORDERED: FENTAnyl 50 MCG/ML VIAL IV PRN ×3 (14:30)
[2018-11-17] MEDS ORDERED: METOCLOPRAMIDE 10 MG INJ IV PRN (14:30)
[2018-11-17] MEDS ORDERED: ALBUTEROL 0.083% (NEB) 2.5 MG/3 ML AMP HHN PRN (14:30)
[2018-11-17] MEDS ORDERED: DIPHENHYDRAMINE 50 MG INJ IV PRN (14:30)
[2018-11-17] MEDS ORDERED: HYDROmorphONE 1 MG/5 ML IV SYRINGE IV PRN ×3 (14:30)
[2018-11-17] MEDS ORDERED: EPHEDrine SULFATE 50 MG/5 ML SYG IV PRN (14:30)
[2018-11-17] MEDS ORDERED: hydrALAzine 20 MG INJ IV PRN (14:30)
[2018-11-17] MEDS ORDERED: MEPERIDINE 25 MG INJ IV PRN (14:30)
--- NOTE | 2018-11-17 14:35 | SIPON ---
Date/Time of Note Date/Time of Note DATE: 11/17/18 TIME: 14:31 Operative Report Preoperative Diagnosis hematoma Rt. hand Postoperative Diagnosis same Operation/Procedure Performed incision & drainage of hematoma Rt hand Surgeon see signature line economist research assistant none Anesthesia: general Estimated blood loss: 0 - 10 ml's Transfusion Required none Specimen none Grafts/Implants none Complications none LADONNA RIVERA MD Nov 17, 2018 14:35
[2018-11-17] MEDS: hydrALAzine 20 MG INJ IV PRN (14:57)
--- NOTE | 2018-11-17 15:39 | OPR ---
DATE OF OPERATION: 11/17/2018 PREOPERATIVE DIAGNOSIS: Hematoma, right hand. POSTOPERATIVE DIAGNOSIS: Hematoma, right hand. PROCEDURE PERFORMED: Incision and evacuation of the hematoma from the right hand. ANESTHESIA: General anesthesia. SURGEON: Cesario Rivera MD PROCEDURE AND FINDINGS: Under general anesthesia, the patient was placed in supine position upon the operating table. A tourniquet was placed over the proximal portion of the right arm, but was never used. Usual prep and drape was done exposing the right hand and right wrist and right forearm. Afte r gentle evaluation which confirmed preoperative diagnosis of large hematoma, the hematoma over the d orsal aspect of the right hand was approached through about an inch and a half longitudinal incision over the dorsum of the right hand right in the middle of the palpable hematoma. On opening, burst of hematoma was noted. It was not fluidy anymore and it was organizing in a way. A specimen was taken for culture and sensitivity. After rather aggressive mechanical evacuation of the organizing hemato ma, further debridement and irrigation was carried out using hydrogen peroxide followed by powerful i rrigation with antibiotic solution. After the satisfactory irrigation and evacuation, #10 Guido-Pr att tube was laid in that space and then closure of the incision was carried out using 3-0 Vicryl in an interrupted fashion. dressings were applied. The patient tolerated the entire procedure very well and was sent to the recovery room in good condit ion. Dictated By: CESARIO RIVERA MD IK/NTS Conf#: [id number] DID#: [id number] CC: CHRISS WELCH MD; DYLON WALLS MD;*[facility]*
[2018-11-17] MEDS: SOD CHLORIDE 0.9% 1,000 ML IV SCH (16:11)
--- NOTE | 2018-11-17 18:33 | PN ---
DATE: 11/17/2018 SUBJECTIVE: Patient is seen status post I and D of right hand and wrist hematoma. Also, status post dialysis with 2 units of PRBC was given. The patient currently resting comfortably and the right ar m is elevated. I reviewed Dr. Juan Miranda's operative report. Specimen was sent for cultures. PHYSICAL EXAMINATION: VITAL SIGNS: Temperature is 98.3, pulse 103, respirations 18, blood pressure ____, saturation 93%. GENERAL: ____ no acute distress. HEENT: Normocephalic, atraumatic. The patient is resting. CARDIOVASCULAR: S1, S2, regular rate. LUNGS: Clear. ABDOMEN: Soft, nontender. EXTREMITIES: No clubbing, cyanosis, or edema. LABORATORY DATA: White count is 8.9, hemoglobin was 6.8, this is before the transfusion, hematocrit ____, platelet count 214. Sodium 137, potassium 4.3, chloride 98, bicarbonate 28, BUN is 32, creatin ine 2.3, and glucose of 112. MRSA screening and blood cultures are negative. MEDICATIONS: Include: 1. Lovenox. 2. Protonix. 3. Dilaudid. 4. Fentanyl. 5. Toradol. 6. Zofran. 7. Reglan. 8. Labetalol. 9. Hydralazine. 10. Demerol. 11. Benadryl. 12. Versed. 13. [place]. 14. Normal saline. 15. Hydralazine. 16. Sodium chloride. 17. Depakote. 18. Zosyn. 19. Renvela. 20. Zofran. 21. Tylenol. 22. Morphine. 23. Colace. 24. Milk of magnesia. 25. Vancomycin. 26. Norvasc. 27. Colace. 28. Folic acid. 29. DuoNeb. 30. Prevacid. 31. Tradjenta. 32. Ativan. 33. Lopressor. 34. Seroquel. 35. Senna. ASSESSMENT AND PLAN: This is an 83-year-old [place] female with end-stage renal disease, CODP, vasc ular dementia, CVA, who presented with gastrointestinal bleed, also right hand and wrist swelling con sistent with hematoma. 1. Right hand hematoma status post I and D. Continue wound care. Arm elevation. Monitor H and H p ostoperatively. 2. Anemia, status post 2 units of PRBC. Transfuse p.r.n. 3. End-stage renal disease status post dialysis today. Monitor electrolytes. 4. Dysphagia, on oral with pureed and bolus feeding. 5. Diabetes mellitus. Continue Accu-Cheks with coverage glucose levels are in the 100s. 6. The patient is in to 1:1 sitter due to danger to self and psychiatric disorder. 7. Hypertension. Continue current medications. 8. Gastrointestinal bleed. Patient to undergo EGD in the a.m. We will follow. Dictated By: DYLON HULL/MADAN Conf#: [id number] DID#: [id number]
[2018-11-17] MEDS: PANTOPRAZOLE 40 MG INJ IV SCH (18:35)
[2018-11-18] VITALS (10 sets, daily range): BP systolic 117–142; BP diastolic 55–75; PULSE 84–109; RESP 8–27
--- NOTE | 2018-11-18 00:45 | OPR ---
DATE OF OPERATION: 11/17/2018 PREOPERATIVE DIAGNOSIS: Extensive hematoma involving the right hand and wrist. POSTOPERATIVE DIAGNOSIS: Extensive hematoma involving the right hand and wrist. PROCEDURE PERFORMED: Incision and evacuation of the extensive hematoma from the dorsal aspect of the right hand, and closure over a Guido-Tran tube. ANESTHESIA: General anesthesia. SURGEON: Cesario Rivera MD PROCEDURE AND FINDINGS: Under anesthesia, the patient was placed in supine position up on the operat ing table. The entire extensive hematoma was evaluated under anesthesia, and this hematoma was appro ached through the longitudinal incision made over the dorsal aspect of the mid portion of the right h and. On opening the incision, it was obvious that this is an organizing hematoma involving the entir e dorsal aspect of the right hand under the skin and extending all throughout the hand and also exten ding upward along the wrist. After obtaining specimen for Gram stain and culture and sensitivity edelmira t, mechanical evacuation of the large amount of organizing hematoma was removed. After removing the majority of the hematoma, the area was irrigated with hydrogen peroxide, which was followed by aggres sive mechanical irrigation using power irrigation system. At the end of the procedure, a #9 Guido- Tran tube was inserted into the area, and then the closure of the incision was carried out using 3-0 nylon in an interrupted fashion. Sterile pressure dressings were applied. The patient tolerated the entire procedure very well and was sent to the recovery room in good condit ion. Dictated By: CESARIO RIVERA MD IK/NTS Conf#: [id number] DID#: [id number] CC: DYLON WALLS MD;*EndCC*
[2018-11-18] MEDS: PANTOPRAZOLE 40 MG INJ IV SCH ×2 (05:10→17:20)
[2018-11-18] MEDS: PIPER-TAZO 2.25 GM (PMX) 50 ML IVPB SCH ×3 (05:10→20:36)
[2018-11-18] MEDS: VALPROIC ACID LIQUID CUP 250 MG/5 ML CUP PO SCH ×3 (06:33→20:35)
[2018-11-18] MEDS: morphine SULFATE/PF (2 MG/2 ML) SYG IV PRN (06:33)
[2018-11-18] MEDS: SOD CHLORIDE 0.9% 1,000 ML IV SCH ×2 (06:53→13:30)
--- NOTE | 2018-11-18 07:09 | PN ---
Date/Time of Note Date/Time of Note DATE: 11/18/18 TIME: 07:07 Assessment/Plan VTE Prophylaxis Risk score (from Ns)>0 risk: 7 SCD applied (from Ns): Yes Pharmacological prophylaxis: NA/contraindicated Pharm contraindication: bleeding Lines/Catheters IV Catheter Type (from [facility]): Peripheral IV Assessment/Plan Hospital Course 83 yo female in ESRD on HD presents for melena and anemia and also found to have edematous Rt hand/wrist 1. UGIB manifested through melena and anemia 2. Anemia, acute on chronic -s/p 2 units with HD on 11/17 3. ESRD on HD -receiving HD currently 4. Hematoma of Rt hand and wrist -I and D drainage by Dr. Dean 11/17 5. Dysphagia -on tube feeds and pureed nectar for oral gratification 6. DM2 7. HTN 8. H/O diastolic dysfunction heart failure Plan: EGD today- NPO now, INR 0.94, No anti coagulants Monitor HH and for active GI bleeding PPI BID Pt examined and plan of care discussed with Dr. Baird Result Diagram: 11/18/1815 11/18/18 05 Results 24hrs Laboratory Tests Test 11/17/18 09:14 11/17/18 16:27 11/18/18 05:15 11/18/18 05:19 Bedside Glucose 121 White Blood Count 11.9 #H 6.6 # Red Blood Count 3.87 #L 3.29 L Hemoglobin 10.6 #L 9.2 L Hematocrit 31.9 #L 27.3 L Mean Corpuscular 82.4 83.0 Volume Mean Corpuscular 27.4 L 28.0 L Hemoglobin Mean Corpuscular 33.2 33.7 Hemoglobin Concent Red Cell Distribution 15.7 H 16.4 H Width Platelet Count 168 # 146 Mean Platelet Volume 11.0 H 11.7 H Immature Granulocytes 1.400 H 1.500 H % Neutrophils % 92.5 H 76.5 Lymphocytes % 2.8 L 10.3 L Monocytes % 2.9 11.2 H Eosinophils % 0.1 0.2 Basophils % 0.3 0.3 Nucleated Red Blood 0.4 H 0.8 H Cells % Immature Granulocytes 0.170 H 0.100 H # Neutrophils # 11.0 H 5.0 Lymphocytes # 0.3 L 0.7 L Monocytes # 0.3 0.7 Eosinophils # 0.0 0.0 Basophils # 0.0 0.0 Nucleated Red Blood 0.1 H 0.1 H Cells # Phosphorus Level 3.7 Magnesium Level 2.0 Lipase 64 Sodium Level 139 Potassium Level 3.8 Chloride Level 102 Carbon Dioxide Level 28 Anion Gap 9 Blood Urea Nitrogen 20 # Creatinine 1.75 H Est Glomerular Filtrat Rate mL/min Glucose Level 148 Calcium Level 7.9 L Random Vancomycin 13.0 Level Exam/Review of Systems Vital Signs Vitals Vital Signs Date Temp Pulse Resp B/P (MAP) Pulse Ox O2 O2 Flow FiO2 Time Delivery Rate 11/18/18 97.4 97 18 135/55 95 01:51 (81) 11/17/18 Room Air 15:42 11/17/18 10.0 14:50 Intake and Output 11/17/18 11/17/18 11/18/18 1515:00 23:00 07:00 IntakeIntake Total 400 ml 350 ml 850 ml OutputOutput Total 1115 ml 75 ml 60 ml BalanceBalance -715 ml 275 ml 790 ml Medications Medications Current Medications IV Flush (NS 3 ml) 3 ml PER PROTOCOL IV ; Start 11/16/18 at 09:00 Ondansetron HCl (Zofran Inj) 4 mg Q6H PRN IV NAUSEA AND/OR VOMITING; Start 11/16/18 at 09:00 Acetaminophen (Tylenol Tab) 650 mg Q6H PRN PO PAIN LEVEL 1-3 OR FEVER; Start 11/16/18 at 09:00 Morphine Sulfate (morphine SULFATE (PF)) 2 mg Q4H PRN IV SEVERE PAIN LEVEL 7-10 Last administered on 11/18/18at 06:33; Admin Dose 2 MG; Start 11/16/18 at 09:00 Docusate Sodium (Colace) 100 mg Q12H PRN PO CONSTIPATION; Start 11/16/18 at 09:00 Magnesium Hydroxide (Milk Of Mag) 30 ml DAILY PRN PO CONSTIPATION; Start 11/16/18 at 09:00 Vancomycin HCl (Vanco Iv Per Pharmacy) 1 ea NOTE XX ; Start 11/16/18 at 09:00 Docusate Sodium (Colace) 100 mg DAILY PO ; Start 11/16/18 at 09:00 Folic Acid (Folic Acid) 1 mg DAILY GTB ; Start 11/16/18 at 09:00 Albuterol/ Ipratropium (Duoneb) 3 ml Q6 PRN HHN sob; Start 11/16/18 at 09:00 Lansoprazole (Prevacid) 30 mg QAM PO ; Start 11/16/18 at 09:00 Linagliptin (Tradjenta) 5 mg DAILY GTB ; Start 11/16/18 at 09:00 Lorazepam (Ativan) 1 mg HS PRN GTB ANXIETY Last administered on 11/16/18 22:10; Admin Dose 1 MG; Start 11/16/18 at 09:00 Quetiapine Fumarate (Seroquel) 25 mg BID GTB Last administered on 11/17/18 21:10; Admin Dose 25 MG; Start 11/16/18 at 09:00 Senna (Senokot) 1 tab BID PO Last administered on 11/17/18 21:10; Admin Dose 1 TAB; Start 11/16/18 at 09:00 Sevelamer Carbonate (Renvela) 0.8 gm WITH MEALS PO Last administered on 11/17/18 18:35; Admin Dose 0.8 GM; Start 11/16/18 at 11:30 Valproate Sodium (Depakene Liquid Cup) 250 mg Q8 PO Last administered on 11/18/18 06:33; Admin Dose 250 MG; Start 11/16/18 at 14:00 Piperacillin Sod/ Tazobactam Sod 50 ml @ 100 mls/hr Q8 IVPB Last administered on 11/18/18 05:10; Admin Dose 100 MLS/HR; Start 11/16/18 at 14:00 Sodium Chloride (NS) -To prime the dialy... DIRECTED FOR HD PRN IV SBP<90; Start 11/16/18 at 15:00 Pantoprazole (Protonix Iv) 40 mg BID@06,18 IV Last administered on 11/18/18 05:10; Admin Dose 40 MG; Start 11/17/18 at 18:00 Hydralazine HCl (Apresoline) 10 mg Q4H PRN IV ELEVATED BLOOD PRESSURE Last administered on 11/17/18 14:57; Admin Dose 10 MG; Start 11/17/18 at 10:30 Sodium Chloride 1,000 ml @ 60 mls/hr [id number] IV Last administered on 1/9/19at 16:11; Admin Dose 60 MLS/HR; Start 11/17/18 at 14:13 Enoxaparin Sodium (Lovenox) 30 mg DAILY SC ; Start 11/18/18 at 09:00 Acetaminophen/ Hydrocodone Bitart ([place] (5/325)) 1 tab Q3H PRN PO MODERATE PAIN LEVEL 4-6; Start 11/17/18 at 14:30 Amlodipine Besylate (Norvasc) 5 mg BID GTB ; Start 11/18/18 at 09:00 Hydralazine HCl (Apresoline) 25 mg Q8 PO Last administered on 11/18/18at 06:33; Admin Dose 25 MG; Start 11/18/18 at 06:00 Metoprolol Tartrate (Lopressor) 50 mg BID GTB ; Start 11/18/18 at 09:00 TONY VENCES Nov 18, 2018 07:09
[2018-11-18] MEDS: QUETIAPINE 25 MG TAB GTB SCH ×2 (08:50→20:35)
[2018-11-18] MEDS: AMLODIPINE 5 MG TAB GTB SCH ×2 (08:50→20:35)
[2018-11-18] MEDS: METOPROLOL 50 MG TAB GTB SCH ×2 (08:51→20:34)
[2018-11-18] MEDS: FOLIC ACID 1 MG TAB GTB SCH (08:51)
[2018-11-18] MEDS ORDERED: ENOXAPARIN 30 MG/0.3 ML SYG SC SCH (09:00)
[2018-11-18] MEDS: LINAGLIPTIN 5 MG TABLET GTB SCH (09:00)
--- NOTE | 2018-11-18 09:29 | PN ---
DATE: 11/18/2018 SUBJECTIVE: The patient is seen. The patient is alert, quite anxious, status post transfusion yeste rday. Hemoglobin improved but back down. It was 10.6 post-surgery after transfusion and now is 9.2. We will follow. PHYSICAL EXAMINATION: VITAL SIGNS: Temperature is 97.4, pulse 97, respirations 18, blood pressure 135/55, saturation 95%. GENERAL: No acute distress. The patient is pale. CARDIOVASCULAR: S1, S2, regular rate. LUNGS: Clear. ABDOMEN: Soft, nontender. EXTREMITIES: Currently hanging on the special brace support after surgery. The patient is quite anx ious. LABORATORY DATA: White count 6.6, hemoglobin 9.2, hematocrit 27, platelet count 146, neutrophils 77, sed. 10%. Chemistry: Sodium 139, potassium 3.8, chloride 102, bicarbonate 28, BUN is 20, creatinin e 0.75, glucose 148. The patient's MRSA screening and blood cultures are all negative. MEDICATIONS INCLUDE: 1. Lovenox. 2. Norvasc. 3. Lopressor. 4. Hydralazine. 5. Protonix. 6. [place]. 7. Zosyn. 8. Renvela. 9. Tylenol. 10. Morphine. 11. Colace. 12. Milk of magnesia. 13. Colace. 14. Folic acid. 15. DuoNeb. 16. Ativan. 17. Seroquel. 18. Depakote. 19. Zofran. 20. Prevacid. 21. Tradjenta. 22. Senna. ASSESSMENT AND PLAN: This is an 83-year-old [place] female with end-stage renal disease, chronic ob structive pulmonary disease, vascular dementia, cerebrovascular accident, presented with gastrointest inal bleed also right hand and wrist swelling consistent with hematoma. 1. Right hand hematoma quite extensive causing significant skin tightening. The patient is now stat us post incision and drainage. Continue arm elevation and wound care. 2. Anemia. Monitor hemoglobin and hematocrit, status post 2 units of PRBC. 3. Questionable gastrointestinal bleed. The patient is awaiting esophagogastroduodenoscopy. Hold L ovenox. 4. End-stage renal disease. Continue dialysis [address] Stringer is following. 5. Dysphagia. Continue oral feeding and G-tube feeding. 6. Diabetes mellitus. Continue Accu-Cheks. Glucose levels are controlled in the low 100s. 7. Hypertension. Continue current medications withholding parameters were discussed with nursing st aff overnight. 8. Anxiety. Continue antipsychotics in 1:1 sitter with danger to self. 9. We will follow closely. Dictated By: DYLON HULL/MADAN Conf#: [id number] DID#: [id number] CC: DYLON WALLS MD; CHRISS WELCH MD;*End*
--- NOTE | 2018-11-18 09:45 | CONS ---
Date/Time of Note Date/Time of Note DATE: 11/18/18 TIME: 09:44 Consult Date/Type/Reason Admit Date/Time Nov 16, 2018 at 05:51 Initial Consult Date 11/16/18 Type of Consultation: cv Requesting Provider: DYLON PEREZ MD Subjective cv follow up note Sl DW/ Staff d/w Dr Perez pt is still intermittently very agitated and yelling/screaming no report of any chest pain or pressure or palpitations. s/p I/D 11/17 Awaiting EGD O: General: Elderly frail male in no acute distress HEENT: NC/AT. pupils are equal. round. NECK: NO JVD. no stridor. CV: RRR. systolic murmur; no gallop or rubs. PULM: no wheezing or rhonchi. GI: SOFT, NT, ND, no rebound or guarding Extremity: Right upper extremity is covered with dressing neuro: awake and alert, OX1 only. Psych: agitated and yelling rectal: deferred An x-ray shows 1. Extensive soft-tissue swelling involving the dorsum of the right hand and wrist but no soft tissue gas or foreign body. 2. No evidence of fracture dislocation or erosions or plain imaging evidence of osteomyelitis. review of old chart shows ECHO done Oct 2018: Normal left ventricular systolic function. Normal left ventricular cavity size. Moderate concentric left ventricular hypertrophy. Ejection fraction is visually estimated at 65 %. Abnormal Diastolic Function. Mitral valve leaflets appear moderately thickened. Moderate mitral annular calcification. Trace mitral regurgitation. Aortic valve not well visualized. No hemodynamically significant aortic stenosis by doppler. Aortic sclerosis without significant stenosis. Aortic cusps appear mildly calcified. Mild to moderate aortic valve reg urgitation. Estimated peak PA systolic pressure 40 mmHg. Tricuspid valve appears moderately thickened. There is mild tricuspid regurgitation. ECG 11/16/18: NSR no ischemia Objective Vital Signs Date Temp Pulse Resp B/P (MAP) Pulse Ox O2 O2 Flow FiO2 Time Delivery Rate 11/18/18 97.4 97 18 135/55 95 01:51 (81) 11/17/18 Room Air 15:42 11/17/18 10.0 14:50 Intake and Output 11/17/18 11/17/18 11/18/18 1515:00 23:00 07:00 IntakeIntake Total 400 ml 350 ml 850 ml OutputOutput Total 1115 ml 75 ml 60 ml BalanceBalance -715 ml 275 ml 790 ml Results/Medications Result Diagram: 11/18/18 0515 11/18/18 0519 Results 24 hrs Laboratory Tests Test 11/17/18 16:27 11/18/18 05:15 11/18/18 05:19 11/18/18 08:04 White Blood Count 11.9 #H 6.6 # Red Blood Count 3.87 #L 3.29 L Hemoglobin 10.6 #L 9.2 L Hematocrit 31.9 #L 27.3 L Mean Corpuscular 82.4 83.0 Volume Mean Corpuscular 27.4 L 28.0 L Hemoglobin Mean Corpuscular 33.2 33.7 Hemoglobin Concen t Red Cell 15.7 H 16.4 H Distribution Width Platelet Count 168 # 146 Mean Platelet 11.0 H 11.7 H Volume Immature 1.400 H 1.500 H Granulocytes % Neutrophils % 92.5 H 76.5 Lymphocytes % 2.8 L 10.3 L Monocytes % 2.9 11.2 H Eosinophils % 0.1 0.2 Basophils % 0.3 0.3 Nucleated Red 0.4 H 0.8 H Blood Cells % Immature 0.170 H 0.100 H Granulocytes # Neutrophils # 11.0 H 5.0 Lymphocytes # 0.3 L 0.7 L Monocytes # 0.3 0.7 Eosinophils # 0.0 0.0 Basophils # 0.0 0.0 Nucleated Red 0.1 H 0.1 H Blood Cells # Phosphorus Level 3.7 Magnesium Level 2.0 Lipase 64 Sodium Level 139 Potassium Level 3.8 Chloride Level 102 Carbon Dioxide 28 Level Anion Gap 9 Blood Urea 20 # Nitrogen Creatinine 1.75 H Est Glomerular Filtrat Rate mL/min Glucose Level 148 Calcium Level 7.9 L Random Vancomycin 13.0 Level Lab Scanned BLOOD TRANSFUSION Report Medications Current Medications IV Flush (NS 3 ml) 3 ml PER PROTOCOL IV ; Start 11/16/18 at 09:00 Ondansetron HCl (Zofran Inj) 4 mg Q6H PRN IV NAUSEA AND/OR VOMITING; Start 11/16/18 at 09:00 Acetaminophen (Tylenol Tab) 650 mg Q6H PRN PO PAIN LEVEL 1-3 OR FEVER; Start 11/16/18 at 09:00 Morphine Sulfate (morphine SULFATE (PF)) 2 mg Q4H PRN IV SEVERE PAIN LEVEL 7-10 Last administered on 11/18/18 06:33; Admin Dose 2 MG; Start 11/16/18 at 09:00 Docusate Sodium (Colace) 100 mg Q12H PRN PO CONSTIPATION; Start 11/16/18 at 09:00 Magnesium Hydroxide (Milk Of Mag) 30 ml DAILY PRN PO CONSTIPATION; Start 11/16/18 at 09:00 Vancomycin HCl (Vanco Iv Per Pharmacy) 1 ea NOTE XX ; Start 11/16/18 at 09:00 Docusate Sodium (Colace) 100 mg DAILY PO ; Start 11/16/18 at 09:00 Folic Acid (Folic Acid) 1 mg DAILY GTB Last administered on 11/18/18 08:51; Admin Dose 1 MG; Start 11/16/18 at 09:00 Albuterol/ Ipratropium (Duoneb) 3 ml Q6 PRN HHN sob; Start 11/16/18 at 09:00 Lansoprazole (Prevacid) 30 mg QAM PO ; Start 11/16/18 at 09:00 Linagliptin (Tradjenta) 5 mg DAILY GTB ; Start 11/16/18 at 09:00 Lorazepam (Ativan) 1 mg HS PRN GTB ANXIETY Last administered on 11/16/18 22:10; Admin Dose 1 MG; Start 11/16/18 at 09:00 Quetiapine Fumarate (Seroquel) 25 mg BID GTB Last administered on 11/18/18 08:50; Admin Dose 25 MG; Start 11/16/18 at 09:00 Senna (Senokot) 1 tab BID PO Last administered on 11/17/18 21:10; Admin Dose 1 TAB; Start 11/16/18 at 09:00 Sevelamer Carbonate (Renvela) 0.8 gm WITH MEALS PO Last administered on 11/17/18 18:35; Admin Dose 0.8 GM; Start 11/16/18 at 11:30 Valproate Sodium (Depakene Liquid Cup) 250 mg Q8 PO Last administered on 11/18/18 06:33; Admin Dose 250 MG; Start 11/16/18 at 14:00 Piperacillin Sod/ Tazobactam Sod 50 ml @ 100 mls/hr Q8 IVPB Last administered on 1/10/19at 05:10; Admin Dose 100 MLS/HR; Start 11/16/18 at 14:00 Sodium Chloride (NS) -To prime the dialy... DIRECTED FOR HD PRN IV SBP<90; Start 11/16/18 at 15:00 Pantoprazole (Protonix Iv) 40 mg BID@06,18 IV Last administered on 11/18/18at 05:10; Admin Dose 40 MG; Start 11/17/18 at 18:00 Hydralazine HCl (Apresoline) 10 mg Q4H PRN IV ELEVATED BLOOD PRESSURE Last administered on 11/17/18 14:57; Admin Dose 10 MG; Start 11/17/18 at 10:30 Sodium Chloride 1,000 ml @ 60 mls/hr [id number] IV Last administered on 11/17/18 16:11; Admin Dose 60 MLS/HR; Start 11/17/18 at 14:13 Acetaminophen/ Hydrocodone Bitart ([place] (5/325)) 1 tab Q3H PRN PO MODERATE PAIN LEVEL 4-6; Start 11/17/18 at 14:30 Amlodipine Besylate (Norvasc) 5 mg BID GTB Last administered on 11/18/18 08:50; Admin Dose 5 MG; Start 11/18/18 at 09:00 Hydralazine HCl (Apresoline) 25 mg Q8 PO Last administered on 11/18/18 06:33; Admin Dose 25 MG; Start 11/18/18 at 06:00 Metoprolol Tartrate (Lopressor) 50 mg BID GTB Last administered on 11/18/18 08:51; Admin Dose 50 MG; Start 11/18/18 at 09:00 Assessment/Plan Chief Complaint/Hosp Course Cardiovascular preop evaluation Right hand hematoma Renal failure on dialysis Hypertension Dementia Anemia Possible GI bleed AI Recommendations: transfusion with HD today Dialysis as per renal team Her old chart was reviewed. In 2013 patient had a stress test which showed ejection fraction of 80% and no evidence of reversible ischemia considered a normal stress test at the time Based on above no further cardiac workup would be indicated. Continue with the blood pressure medication especially beta-farrah up to and including day of surgery Thank you for his referral. We will continue to follow along with you CHRISTEN ESCOBEDO MD [facility] CHRISTEN ESCOBEDO MD Nov 18, 2018 09:45
--- NOTE | 2018-11-18 11:18 | CONS ---
Date/Time of Note Date/Time of Note DATE: 11/18/18 TIME: 11:16 Assessment/Plan Assessment/Plan Hospital Course No acute events overnight. Patient is lying comfortably in bed, no fevers, right arm elevated WBC 6.6 H&H 9.2 and 27.3 platelets 146 Blood cultures negative Antimicrobials: Vanco, Zosyn Indwelling: Left chest permacath, PEG Physical examination: Chronically ill-appearing elderly woman who is awake, con fused, in no distress. Head atraumatic normocephalic. Neck is supple. Chest rise symmetrical breath sounds diminished bases. Heart: S1-S2. Abdomen soft bowel sounds present extremities without R FA edema/erythema Assessment: 1. Right hand hematoma, status post I&D 11/17/18 2. Status post VRE bacteremia, status post new Pcath 3. End-stage renal disease, hemodialysis dependent 4. Dementia 5. Failure to thrive 6. Diabetes 8. Anemia Plan: Clinically stable, continue antibiotics, await for intraoperative cultures, follow ortho recommendations Result Diagram: 11/18/18 0515 11/18/18 0519 Results 24hrs Laboratory Tests Test 11/17/18 16:27 11/18/18 05:15 11/18/18 05:19 11/18/18 08:04 White Blood Count 11.9 #H 6.6 # Red Blood Count 3.87 #L 3.29 L Hemoglobin 10.6 #L 9.2 L Hematocrit 31.9 #L 27.3 L Mean Corpuscular 82.4 83.0 Volume Mean Corpuscular 27.4 L 28.0 L Hemoglobin Mean Corpuscular 33.2 33.7 Hemoglobin Concen t Red Cell 15.7 H 16.4 H Distribution Width Platelet Count 168 # 146 Mean Platelet 11.0 H 11.7 H Volume Immature 1.400 H 1.500 H Granulocytes % Neutrophils % 92.5 H 76.5 Lymphocytes % 2.8 L 10.3 L Monocytes % 2.9 11.2 H Eosinophils % 0.1 0.2 Basophils % 0.3 0.3 Nucleated Red 0.4 H 0.8 H Blood Cells % Immature 0.170 H 0.100 H Granulocytes # Neutrophils # 11.0 H 5.0 Lymphocytes # 0.3 L 0.7 L Monocytes # 0.3 0.7 Eosinophils # 0.0 0.0 Basophils # 0.0 0.0 Nucleated Red 0.1 H 0.1 H Blood Cells # Phosphorus Level 3.7 Magnesium Level 2.0 Lipase 64 Sodium Level 139 Potassium Level 3.8 Chloride Level 102 Carbon Dioxide 28 Level Anion Gap 9 Blood Urea 20 # Nitrogen Creatinine 1.75 H Est Glomerular Filtrat Rate mL/min Glucose Level 148 Calcium Level 7.9 L Random Vancomycin 13.0 Level Lab Scanned BLOOD TRANSFUSION Report Consultation Date/Type/Reason Admit Date/Time Nov 16, 2018 at 05:51 Initial Consult Date 11/16/18 Type of Consult id Requesting Provider: DYLON WALLS MD Exam/Review of Systems Vital Signs Vitals Vital Signs Date Temp Pulse Resp B/P (MAP) Pulse Ox O2 O2 Flow FiO2 Time Delivery Rate 11/18/18 97.4 97 18 135/55 95 01:51 (81) 11/17/18 Room Air 15:42 11/17/18 10.0 14:50 Intake and Output 11/17/18 11/17/18 11/18/18 1414:59 22:59 06:59 IntakeIntake Total 400 ml 350 ml 850 ml OutputOutput Total 1115 ml 75 ml 60 ml BalanceBalance -715 ml 275 ml 790 ml Medications Medications Current Medications IV Flush (NS 3 ml) 3 ml PER PROTOCOL IV ; Start 11/16/18 at 09:00 Ondansetron HCl (Zofran Inj) 4 mg Q6H PRN IV NAUSEA AND/OR VOMITING; Start 11/16/18 at 09:00 Acetaminophen (Tylenol Tab) 650 mg Q6H PRN PO PAIN LEVEL 1-3 OR FEVER; Start 11/16/18 at 09:00 Morphine Sulfate (morphine SULFATE (PF)) 2 mg Q4H PRN IV SEVERE PAIN LEVEL 7-10 Last administered on 11/18/18at 06:33; Admin Dose 2 MG; Start 11/16/18 at 09:00 Docusate Sodium (Colace) 100 mg Q12H PRN PO CONSTIPATION; Start 11/16/18 at 09:00 Magnesium Hydroxide (Milk Of Mag) 30 ml DAILY PRN PO CONSTIPATION; Start 11/16/18 at 09:00 Vancomycin HCl (Vanco Iv Per Pharmacy) 1 ea NOTE XX ; Start 11/16/18 at 09:00 Docusate Sodium (Colace) 100 mg DAILY PO ; Start 11/16/18 at 09:00 Folic Acid (Folic Acid) 1 mg DAILY GTB Last administered on 11/18/18 08:51; Admin Dose 1 MG; Start 11/16/18 at 09:00 Albuterol/ Ipratropium (Duoneb) 3 ml Q6 PRN HHN sob; Start 11/16/18 at 09:00 Lansoprazole (Prevacid) 30 mg QAM PO ; Start 11/16/18 at 09:00 Linagliptin (Tradjenta) 5 mg DAILY GTB ; Start 11/16/18 at 09:00 Lorazepam (Ativan) 1 mg HS PRN GTB ANXIETY Last administered on 11/16/18 22:10; Admin Dose 1 MG; Start 11/16/18 at 09:00 Quetiapine Fumarate (Seroquel) 25 mg BID GTB Last administered on 11/18/18 08:50; Admin Dose 25 MG; Start 11/16/18 at 09:00 Senna (Senokot) 1 tab BID PO Last administered on 11/17/18 21:10; Admin Dose 1 TAB; Start 11/16/18 at 09:00 Sevelamer Carbonate (Renvela) 0.8 gm WITH MEALS PO Last administered on 11/17/18 18:35; Admin Dose 0.8 GM; Start 11/16/18 at 11:30 Valproate Sodium (Depakene Liquid Cup) 250 mg Q8 PO Last administered on 11/18/18 06:33; Admin Dose 250 MG; Start 11/16/18 at 14:00 Piperacillin Sod/ Tazobactam Sod 50 ml @ 100 mls/hr Q8 IVPB Last administered on 11/18/18 05:10; Admin Dose 100 MLS/HR; Start 11/16/18 at 14:00 Sodium Chloride (NS) -To prime the dialy... DIRECTED FOR HD PRN IV SBP<90; Start 11/16/18 at 15:00 Pantoprazole (Protonix Iv) 40 mg BID@06,18 IV Last administered on 11/18/18 05:10; Admin Dose 40 MG; Start 11/17/18 at 18:00 Hydralazine HCl (Apresoline) 10 mg Q4H PRN IV ELEVATED BLOOD PRESSURE Last administered on 11/17/18at 14:57; Admin Dose 10 MG; Start 11/17/18 at 10:30 Sodium Chloride 1,000 ml @ 60 mls/hr [id number] IV Last administered on 11/17/18at 16:11; Admin Dose 60 MLS/HR; Start 11/17/18 at 14:13 Acetaminophen/ Hydrocodone Bitart ([place] (5/325)) 1 tab Q3H PRN PO MODERATE PAIN LEVEL 4-6; Start 11/17/18 at 14:30 Amlodipine Besylate (Norvasc) 5 mg BID GTB Last administered on 11/18/18at 08:50; Admin Dose 5 MG; Start 11/18/18 at 09:00 Hydralazine HCl (Apresoline) 25 mg Q8 PO Last administered on 11/18/18at 06:33; Admin Dose 25 MG; Start 11/18/18 at 06:00 Metoprolol Tartrate (Lopressor) 50 mg BID GTB Last administered on 11/18/18at 08:51; Admin Dose 50 MG; Start 11/18/18 at 09:00 PHYLICIA HOLCOMB NP Nov 18, 2018 11:18
--- NOTE | 2018-11-18 11:25 | PREAC ---
Date/Time of Note Date/Time of Note DATE: 11/18/18 TIME: 11:23 Anesthesia Eval and Record Evaluation Time Pre-Procedure Interview DATE: 11/18/18 TIME: 11:23 Age 83 Sex female NPO: 8 hrs Preoperative diagnosis melena Planned procedure EGD Past Medical History Past Medical History: Includes Cardio: HTN, Other (EF65%) Endo: Diabetes Renal: ESRD on dialysis, HD last: (yesterday) Surgery & Anesthesia Issues No known issue Meds Anticoagulation: No Beta Magalys within 24 hr: Yes Reported Medications Sennosides* (Senna Lax*) 8.6 Mg Tablet, 1 TAB PO BID, TAB 11/16/18 Sevelamer Carbonate* (Renvela*) 0.8 Gm Powd.pack, 0.8 GM PO WITH MEALS, PACKET 11/16/18 Lansoprazole* (Lansoprazole*) 30 Mg Capsule.dr, 30 MG PO QAM, CAP 11/16/18 Hydralazine Hcl* (Hydralazine Hcl*) 25 Mg Tab, 25 MG PO Q8, #90 TAB 11/16/18 Ferrous Sulfate* (Ferrous Sulfate*) 325 Mg Tabec, 325 MG PO BID for anemia, TAB 11/16/18 Valproate Sodium (Valproic Acid) 250 Mg/5 Ml Solution, 250 MG PO Q8, ML 11/16/18 Insulin Aspart* (Novolog Insulin Pen*) 100 Unit/Ml Soln, 0 SC .SLIDING SCALE AC, EA IF BS 160-200=2 UNITS,201-250=4 UNITS,251-300=8 UNITS,301-350=12 UNITS;351-400=16 UNITS THEN CALL . 10/16/18 Ondansetron Hcl* (Zofran*) 4 Mg Tab, 4 MG GTB Q4H PRN for NAUSEA AND OR VOMITING, TAB 10/16/18 Linagliptin (TRADJENTA) 5 Mg Tablet, 5 MG GTB DAILY, TAB 10/16/18 Quetiapine Fumarate* (Seroquel*) 25 Mg Tablet, 25 MG GTB BID, #60 TAB 10/16/18 [Nephro-Roque] No Conflict Check, 0.8 MG GTB DAILY 10/16/18 Polyethylene Glycol* (Miralax*) 17 Gm Powd.pack, 17 GM GTB Q24H, #30 PACKET 10/16/18 Metoprolol Tartrate* (Lopressor*) 50 Mg Tab, 50 MG GTB DAILY, #60 TAB Q MON,WED,FRI,SUN,HOLD FOR SBP<110 OR AK<60 10/16/18 Metoprolol Tartrate* (Lopressor*) 50 Mg Tab, 50 MG GTB BID, #60 TAB QTUE,ANDREW,SAT,HOLD FOR SBP<110 OR AK<60 10/16/18 Linaclotide (LINZESS) 145 Mcg Capsule, 145 MCG GTB DAILY, #30 CAP 10/16/18 Ipratropium-Albuterol (Ipratropium-Albuterol) 0.5-3 Mg/3 Ml Ampul.neb, 3 ML INHALATION Q6, #30 VIAL FOR 14 DAYS,STOP DATE 10/17/18 10/16/18 Hydralazine Hcl* (Hydralazine Hcl*) 25 Mg Tab, 25 MG GTB DAILY, #60 TAB Q TUE,ANDREW,SAT,HOLD IF SBP<110 OR AK<60 10/16/18 Folic Acid* (Folic Acid*) 1 Mg Tablet, 1 MG GTB DAILY, TAB 10/16/18 Docusate Sodium* (Colace*) 100 Mg Capsule, 100 MG GTB DAILY, #30 CAP 10/16/18 Lorazepam* (Lorazepam*) 1 Mg Tablet, 1 MG GTB HS PRN for ANXIETY, #30 TAB Q TUE,ANDREW,SAT 10/16/18 Amlodipine Besylate* (Norvasc*) 5 Mg Tablet, 5 MG GTB BID, TAB TAKE Q TUE,ANDREW,SAT FOR HTN, HOLD FOR SBP<110 OR AK<60 10/16/18 Acetaminophen* (Acetaminophen*) 650 Mg Tablet, 650 MG GTB Q6H PRN for PAIN LEVEL 1-1010, #30 TAB 10/16/18 Discontinued Reported Medications Cholecalciferol (Vitamin D3) 400 Unit Tablet, 800 UNIT GTB DAILY, TAB 10/16/18 Sevelamer Carbonate* (Renvela*) 800 Mg Tablet, 0.8 GM GTB BID, TAB 10/16/18 Pantoprazole* (Protonix*) 40 Mg Tablet.dr, 40 MG GTB QAM, TAB 10/16/18 Calcium Carbonate/Vitamin D3 (OYSTER SHELL 500 MG + VIT D TB) 1 Each Tablet, 1 EACH GTB BID, TAB 10/16/18 Insulin Detemir (Levemir Flextouch) 100 Unit/1 Ml Insuln.pen, 18 UNIT SQ DAILY, EA 10/16/18 Ferrous Sulfate* (Ferrous Sulfate*) 220 Mg/5 Ml Solution, 7.5 ML GTB BID, ML 10/16/18 Clonidine Patch (CLONIDINE PATCH) 0.2 Mg/24 Hr Patch, 1 PATCH.WK TD Q SUN, #4 PATCH.WK 10/16/18 Amlodipine Besylate* (Norvasc*) 5 Mg Tablet, 5 MG GTB BID, TAB TAKE Q MON,WED,FRI,SUN,HOLD FOR SBP<110 OR AK<60 10/16/18 Current Medications IV Flush (NS 3 ml) 3 ml PER PROTOCOL IV ; Start 11/16/18 at 09:00 Ondansetron HCl (Zofran Inj) 4 mg Q6H PRN IV NAUSEA AND/OR VOMITING; Start 11/16/18 at 09:00 Acetaminophen (Tylenol Tab) 650 mg Q6H PRN PO PAIN LEVEL 1-3 OR FEVER; Start 11/16/18 at 09:00 Morphine Sulfate (morphine SULFATE (PF)) 2 mg Q4H PRN IV SEVERE PAIN LEVEL 7-10 Last administered on 11/18/18at 06:33; Admin Dose 2 MG; Start 11/16/18 at 09:00 Docusate Sodium (Colace) 100 mg Q12H PRN PO CONSTIPATION; Start 11/16/18 at 09:00 Magnesium Hydroxide (Milk Of Mag) 30 ml DAILY PRN PO CONSTIPATION; Start 11/16/18 at 09:00 Vancomycin HCl (Vanco Iv Per Pharmacy) 1 ea NOTE XX ; Start 11/16/18 at 09:00 Docusate Sodium (Colace) 100 mg DAILY PO ; Start 11/16/18 at 09:00 Folic Acid (Folic Acid) 1 mg DAILY GTB Last administered on 11/18/18at 08:51; Admin Dose 1 MG; Start 11/16/18 at 09:00 Albuterol/ Ipratropium (Duoneb) 3 ml Q6 PRN HHN sob; Start 11/16/18 at 09:00 Lansoprazole (Prevacid) 30 mg QAM PO ; Start 11/16/18 at 09:00 Linagliptin (Tradjenta) 5 mg DAILY GTB ; Start 11/16/18 at 09:00 Lorazepam (Ativan) 1 mg HS PRN GTB ANXIETY Last administered on 11/16/18 22:10; Admin Dose 1 MG; Start 11/16/18 at 09:00 Quetiapine Fumarate (Seroquel) 25 mg BID GTB Last administered on 11/18/18 08:50; Admin Dose 25 MG; Start 11/16/18 at 09:00 Senna (Senokot) 1 tab BID PO Last administered on 11/17/18 21:10; Admin Dose 1 TAB; Start 11/16/18 at 09:00 Sevelamer Carbonate (Renvela) 0.8 gm WITH MEALS PO Last administered on 11/17/18 18:35; Admin Dose 0.8 GM; Start 11/16/18 at 11:30 Valproate Sodium (Depakene Liquid Cup) 250 mg Q8 PO Last administered on 11/18/18 06:33; Admin Dose 250 MG; Start 11/16/18 at 14:00 Piperacillin Sod/ Tazobactam Sod 50 ml @ 100 mls/hr Q8 IVPB Last administered on 11/18/18 05:10; Admin Dose 100 MLS/HR; Start 11/16/18 at 14:00 Sodium Chloride (NS) -To prime the dialy... DIRECTED FOR HD PRN IV SBP<90; Start 11/16/18 at 15:00 Pantoprazole (Protonix Iv) 40 mg BID@06,18 IV Last administered on 11/18/18 05:10; Admin Dose 40 MG; Start 11/17/18 at 18:00 Hydralazine HCl (Apresoline) 10 mg Q4H PRN IV ELEVATED BLOOD PRESSURE Last administered on 11/17/18 14:57; Admin Dose 10 MG; Start 11/17/18 at 10:30 Sodium Chloride 1,000 ml @ 60 mls/hr [id number] IV Last administered on 11/17/18 16:11; Admin Dose 60 MLS/HR; Start 11/17/18 at 14:13 Acetaminophen/ Hydrocodone Bitart ([place] (5/325)) 1 tab Q3H PRN PO MODERATE PAIN LEVEL 4-6; Start 11/17/18 at 14:30 Amlodipine Besylate (Norvasc) 5 mg BID GTB Last administered on 11/18/18at 08:50; Admin Dose 5 MG; Start 11/18/18 at 09:00 Hydralazine HCl (Apresoline) 25 mg Q8 PO Last administered on 11/18/18at 06:33; Admin Dose 25 MG; Start 11/18/18 at 06:00 Metoprolol Tartrate (Lopressor) 50 mg BID GTB Last administered on 11/18/18at 08:51; Admin Dose 50 MG; Start 11/18/18 at 09:00 Meds reviewed: Yes Allergies Coded Allergies: No Known Allergy (Unverified , 10/16/18) Allergies Reviewed: Yes Labs/Studies Labs Reviewed: Reviewed by anesthesiologist Result Diagram: 11/18/1851411/18/18518 Laboratory Tests 11/18/18 05:15 11/18/18 05:19 test: N/A Studies: ECG (sr), CXR (n/a) Pre-procedure Exam Last vitals Vital Signs Date Temp Pulse Resp B/P (MAP) Pulse Ox O2 O2 Flow FiO2 Time Delivery Rate 11/18/18 97.4 97 18 135/55 95 01:51 (81) 11/17/18 Room Air 15:42 11/17/18 10.0 14:50 Airway: Adequate mouth opening Mallampati: Mallampati I Teeth: Abnormal Lung: Normal Heart: Normal ASA Physical Status ASA physical status: 3 Emergency: None Planned Anesthetic General/MAC: MAC Planned Pain Management Parenteral pain med Pre-operative Attestations Prior to commencing anesthesia and surgery, the patient was re-evaluated, there was verification of: *The patient's identity *The results of appropriate recent lab work and preoperative vital signs *The above evaluation not changing prior to induction *Anesthetic plan, risk benefits, alternative and complications discussed with patient/family; questions answered; patient/family understands, accepts and wishes to proceed. MARGARET BRYAN MD Nov 18, 2018 11:25
[2018-11-18] MEDS ORDERED: PROPOFOL 20 ML ONE (11:27)
[2018-11-18] MEDS: SEVELAMER CARBONATE 0.8 GM PKT PO SCH ×3 (11:30→17:20)
[2018-11-18] MEDS: DOCUSATE SODIUM 100 MG CAP PO SCH (13:03)
[2018-11-18] MEDS: LANSOPRAZOLE 30 MG CAP PO SCH (13:03)
[2018-11-18] MEDS: SENNA TAB PO SCH ×2 (13:04→20:35)
--- NOTE | 2018-11-18 13:40 | PAC ---
Date/Time of Note Date/Time of Note DATE: 11/18/18 TIME: 13:40 Post-Anesthesia Notes Post-Anesthesia Note Last documented vital signs Vital Signs Date Temp Pulse Resp B/P (MAP) Pulse Ox O2 O2 Flow FiO2 Time Delivery Rate 11/18/18 98.2 84 16 140/69 100 Nasal 2.0 12:28 (92) Cannula 11/18/18 98.2 12:01 Activity: WNL Respiratory function: WNL Cardiovascular function: WNL Mental status: Baseline Pain reasonably controlled: Yes Hydration appropriate: Yes Nausea/Vomiting absent: No MARGARET BRYAN MD Nov 18, 2018 13:40
--- NOTE | 2018-11-18 14:34 | CONS ---
Date/Time of Note Date/Time of Note DATE: 11/18/18 TIME: 14:32 Assessment/Plan Assessment/Plan Assessment/Plan 83 y/o with 1. Right hand swelling, likely secondary to hematoma, questionable fall. with compression s/p I and D on 11/17/18 2. Gastrointestinal bleed with melena. 3. Hypertension. 4. Diabetes. 5. End-stage renal disease on hemodialysis. 6. History of falls. 7. Vascular dementia. 8. History of sepsis with VRE. 9. Dysphagia, status post G-tube. 10. History of hip fracture. 11. Thrombocytopenia. 12. Atherosclerotic heart disease. Plan - HD tmw - EGD today - renally dose all meds - abx per ID Result Diagram: 11/18/1815 11/18/18518 Results 24hrs Laboratory Tests Test 11/17/18 16:27 11/18/18 05:15 11/18/18 05:19 11/18/18 08:04 White Blood Count 11.9 #H 6.6 # Red Blood Count 3.87 #L 3.29 L Hemoglobin 10.6 #L 9.2 L Hematocrit 31.9 #L 27.3 L Mean Corpuscular 82.4 83.0 Volume Mean Corpuscular 27.4 L 28.0 L Hemoglobin Mean Corpuscular 33.2 33.7 Hemoglobin Concen t Red Cell 15.7 H 16.4 H Distribution Width Platelet Count 168 # 146 Mean Platelet 11.0 H 11.7 H Volume Immature 1.400 H 1.500 H Granulocytes % Neutrophils % 92.5 H 76.5 Lymphocytes % 2.8 L 10.3 L Monocytes % 2.9 11.2 H Eosinophils % 0.1 0.2 Basophils % 0.3 0.3 Nucleated Red 0.4 H 0.8 H Blood Cells % Immature 0.170 H 0.100 H Granulocytes # Neutrophils # 11.0 H 5.0 Lymphocytes # 0.3 L 0.7 L Monocytes # 0.3 0.7 Eosinophils # 0.0 0.0 Basophils # 0.0 0.0 Nucleated Red 0.1 H 0.1 H Blood Cells # Phosphorus Level 3.7 Magnesium Level 2.0 Lipase 64 Sodium Level 139 Potassium Level 3.8 Chloride Level 102 Carbon Dioxide 28 Level Anion Gap 9 Blood Urea 20 # Nitrogen Creatinine 1.75 H Est Glomerular Filtrat Rate mL/min Glucose Level 148 Calcium Level 7.9 L Random Vancomycin 13.0 Level Lab Scanned BLOOD TRANSFUSION Report Consultation Date/Type/Reason Admit Date/Time Nov 16, 2018 at 05:51 Initial Consult Date 11/16/18 Requesting Provider: DYLON WALLS MD 24 HR Interval Summary Free Text/Dictation s/p I AND D Yesterday pT VERY CONFUSED Exam/Review of Systems Vital Signs Vitals Vital Signs Date Temp Pulse Resp B/P (MAP) Pulse Ox O2 O2 Flow FiO2 Time Delivery Rate 11/18/18 84 16 140/69 100 Nasal 2.0 12:28 (92) Cannula 11/18/18 98.2 12:01 Intake and Output 11/17/18 11/17/18 11/18/18 1414:59 22:59 06:59 IntakeIntake Total 400 ml 350 ml 850 ml OutputOutput Total 1115 ml 75 ml 60 ml BalanceBalance -715 ml 275 ml 790 ml Exam ENERAL: The patient is awake, alert; however, somewhat combative and confused in between. HEENT: Pupils equal, round, reactive to light. NECK: Supple. HEART: Regular rate and rhythm. LUNGS: Clear to auscultate bilaterally. CARDIOVASCULAR: Patient has a left IJ in place. Rt arm with drain EXTREMITIES: No clubbing, cyanosis, or edema. Medications Medications Current Medications IV Flush (NS 3 ml) 3 ml PER PROTOCOL IV ; Start 11/16/18 at 09:00 Ondansetron HCl (Zofran Inj) 4 mg Q6H PRN IV NAUSEA AND/OR VOMITING; Start 11/16/18 at 09:00 Acetaminophen (Tylenol Tab) 650 mg Q6H PRN PO PAIN LEVEL 1-3 OR FEVER; Start 11/16/18 at 09:00 Morphine Sulfate (morphine SULFATE (PF)) 2 mg Q4H PRN IV SEVERE PAIN LEVEL 7-10 Last administered on 11/18/18at 06:33; Admin Dose 2 MG; Start 11/16/18 at 09:00 Docusate Sodium (Colace) 100 mg Q12H PRN PO CONSTIPATION; Start 11/16/18 at 09:00 Magnesium Hydroxide (Milk Of Mag) 30 ml DAILY PRN PO CONSTIPATION; Start 11/16/18 at 09:00 Vancomycin HCl (Vanco Iv Per Pharmacy) 1 ea NOTE XX ; Start 11/16/18 at 09:00 Docusate Sodium (Colace) 100 mg DAILY PO Last administered on 11/18/18 13:03; Admin Dose 100 MG; Start 11/16/18 at 09:00 Folic Acid (Folic Acid) 1 mg DAILY GTB Last administered on 11/18/18 08:51; Admin Dose 1 MG; Start 11/16/18 at 09:00 Albuterol/ Ipratropium (Duoneb) 3 ml Q6 PRN HHN sob; Start 11/16/18 at 09:00 Lansoprazole (Prevacid) 30 mg QAM PO Last administered on 11/18/18 13:03; Admin Dose 30 MG; Start 11/16/18 at 09:00 Linagliptin (Tradjenta) 5 mg DAILY GTB ; Start 11/16/18 at 09:00 Lorazepam (Ativan) 1 mg HS PRN GTB ANXIETY Last administered on 11/16/18 22:10; Admin Dose 1 MG; Start 11/16/18 at 09:00 Quetiapine Fumarate (Seroquel) 25 mg BID GTB Last administered on 11/18/18 08:50; Admin Dose 25 MG; Start 11/16/18 at 09:00 Senna (Senokot) 1 tab BID PO Last administered on 11/18/18 13:04; Admin Dose 1 TAB; Start 11/16/18 at 09:00 Sevelamer Carbonate (Renvela) 0.8 gm WITH MEALS PO Last administered on 11/18/18 13:03; Admin Dose 0.8 GM; Start 11/16/18 at 11:30 Valproate Sodium (Depakene Liquid Cup) 250 mg Q8 PO Last administered on 11/18/18 13:03; Admin Dose 250 MG; Start 11/16/18 at 14:00 Piperacillin Sod/ Tazobactam Sod 50 ml @ 100 mls/hr Q8 IVPB Last administered on 11/18/18 13:30; Admin Dose 100 MLS/HR; Start 11/16/18 at 14:00 Sodium Chloride (NS) -To prime the dialy... DIRECTED FOR HD PRN IV SBP<90; Start 11/16/18 at 15:00 Pantoprazole (Protonix Iv) 40 mg BID@06,18 IV Last administered on 11/18/18 05:10; Admin Dose 40 MG; Start 11/17/18 at 18:00 Hydralazine HCl (Apresoline) 10 mg Q4H PRN IV ELEVATED BLOOD PRESSURE Last administered on 11/17/18at 14:57; Admin Dose 10 MG; Start 11/17/18 at 10:30 Sodium Chloride 1,000 ml @ 60 mls/hr [id number] IV Last administered on 11/18/18at 13:30; Admin Dose 60 MLS/HR; Start 11/17/18 at 14:13 Acetaminophen/ Hydrocodone Bitart ([place] (5/325)) 1 tab Q3H PRN PO MODERATE PAIN LEVEL 4-6; Start 11/17/18 at 14:30 Amlodipine Besylate (Norvasc) 5 mg BID GTB Last administered on 11/18/18 08:50; Admin Dose 5 MG; Start 11/18/18 at 09:00 Hydralazine HCl (Apresoline) 25 mg Q8 PO Last administered on 11/18/18at 06:33; Admin Dose 25 MG; Start 11/18/18 at 06:00 Metoprolol Tartrate (Lopressor) 50 mg BID GTB Last administered on 11/18/18 08:51; Admin Dose 50 MG; Start 11/18/18 at 09:00 Vancomycin HCl 250 ml @ 125 mls/hr ONCE ONCE IVPB ; Start 11/18/18 at 16:00; Stop 11/18/18 at 17:59 JOSE RAUL ANDREWS MD Nov 18, 2018 14:34
[2018-11-18] MEDS ORDERED: VANCOMYCIN 1 GM 250 ML IVPB ONE (16:00)
[2018-11-19] VITALS (17 sets, daily range): BP systolic 111–151; BP diastolic 42–70; PULSE 83–114; RESP 17–20
[2018-11-19] MEDS: LORAZEPAM 1 MG TAB GTB PRN ×2 (00:21→22:23)
[2018-11-19] MEDS: PIPER-TAZO 2.25 GM (PMX) 50 ML IVPB SCH ×2 (06:42→13:12)
[2018-11-19] MEDS: PANTOPRAZOLE 40 MG INJ IV SCH ×2 (06:42→17:47)
[2018-11-19] MEDS: VALPROIC ACID LIQUID CUP 250 MG/5 ML CUP PO SCH ×3 (06:42→22:20)
[2018-11-19] MEDS: LANSOPRAZOLE 30 MG CAP PO SCH (08:56)
[2018-11-19] MEDS: QUETIAPINE 25 MG TAB GTB SCH ×2 (08:56→21:11)
[2018-11-19] MEDS: LINAGLIPTIN 5 MG TABLET GTB SCH (08:56)
[2018-11-19] MEDS: FOLIC ACID 1 MG TAB GTB SCH (08:56)
[2018-11-19] MEDS: SENNA TAB PO SCH ×2 (08:56→21:11)
[2018-11-19] MEDS: SEVELAMER CARBONATE 0.8 GM PKT PO SCH ×3 (08:56→16:38)
[2018-11-19] MEDS: AMLODIPINE 5 MG TAB GTB SCH ×2 (09:00→21:11)
[2018-11-19] MEDS: METOPROLOL 50 MG TAB GTB SCH ×2 (09:00→21:11)
[2018-11-19] MEDS: DOCUSATE SODIUM 100 MG CAP PO SCH (09:00)
--- NOTE | 2018-11-19 10:40 | PN ---
Date/Time of Note Date/Time of Note DATE: 11/19/18 TIME: 10:29 Assessment/Plan VTE Prophylaxis Risk score (from Ns)>0 risk: 9 SCD applied (from Ns): No SCD contraindicated: patient refusal Pharmacological prophylaxis: NA/contraindicated Pharm contraindication: bleeding Lines/Catheters IV Catheter Type (from [facility]): Peripheral IV Assessment/Plan Hospital Course 83 yo female in ESRD on HD presents for melena and anemia and also found to have edematous Rt hand/wrist 1. UGIB manifested through melena and anemia 2. Anemia, acute on chronic -Hgb 6.8->10.6->9.2->8.3 -No evidence of active GI bleeding, consider etiology of blood loss anemia to be from hematoma in hand -s/p 2 units with HD on 11/17 3. ESRD on HD -receiving HD currently 4. Hematoma of Rt hand and wrist -I and D drainage by Dr. Dean 11/17 5. Dysphagia -on tube feeds and pureed nectar for oral gratification 6. DM2 7. HTN 8. H/O diastolic dysfunction heart failure 9. S/P EGD 11/18 10. Moderate gastritis with no bleeding noted. Plan: Anemia work up Re start Novasource bolus TID Monitor HH closely and for active GI bleeding PPI BID Pt examined and plan of care discussed with Dr. Baird Result Diagram: 11/19/18 0559 11/19/18 0559 Results 24hrs Laboratory Tests Test 11/19/18 05:59 White Blood Count 6.8 Red Blood Count 2.98 L Hemoglobin 8.3 L Hematocrit 25.7 L Mean Corpuscular Volume 86.2 Mean Corpuscular Hemoglobin 27.9 L Mean Corpuscular Hemoglobin Concent 32.3 Red Cell Distribution Width 16.8 H Platelet Count 153 Mean Platelet Volume 11.2 H Immature Granulocytes % 1.600 H Neutrophils % 67.5 Lymphocytes % 12.1 L Monocytes % 13.7 H Eosinophils % 4.7 Basophils % 0.4 Nucleated Red Blood Cells % 0.9 H Immature Granulocytes # 0.110 H Neutrophils # 4.6 Lymphocytes # 0.8 Monocytes # 0.9 Eosinophils # 0.3 Basophils # 0.0 Nucleated Red Blood Cells # 0.1 H Sodium Level 143 Potassium Level 3.4 L Chloride Level 107 Carbon Dioxide Level 27 Anion Gap 9 Blood Urea Nitrogen 27 H Creatinine 2.24 H Est Glomerular Filtrat Rate mL/min Glucose Level 89 # Calcium Level 7.6 L Phosphorus Level 3.6 Magnesium Level 2.0 Subjective 24 Hr Interval Summary Free Text/Dictation RN and 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 RN states no blood or coffee ground noted in g tube when checked for residuals. Pt had minimal food this am. Pt was on novasource boluses TID. Exam/Review of Systems Vital Signs Vitals Vital Signs Date Temp Pulse Resp B/P (MAP) Pulse Ox O2 O2 Flow FiO2 Time Delivery Rate 11/19/18 85 09:55 11/19/18 20 121/58 Room Air 09:10 (79) 11/19/18 97.6 95 08:00 11/18/18 2.0 12:28 Intake and Output 11/18/18 11/18/18 11/19/18 1515:00 23:00 07:00 IntakeIntake Total 250 ml 490 ml 600 ml OutputOutput Total 70 ml BalanceBalance 250 ml 420 ml 600 ml Exam Constitutional: alert Psych: no complaints Head: normocephalic Eyes: nl sclera, PERRL ENMT: mucosa pink and moist Respiratory: clear to auscultation Cardiovascular: regular rate and rhythm Gastrointestinal: soft, non-tender, other (g tube site clean and dry) Musculoskeletal: nl extremities to inspection Extremities: normal pulses 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: confused Medications Medications Current Medications IV Flush (NS 3 ml) 3 ml PER PROTOCOL IV ; Start 11/16/18 at 09:00 Ondansetron HCl (Zofran Inj) 4 mg Q6H PRN IV NAUSEA AND/OR VOMITING; Start 11/16/18 at 09:00 Acetaminophen (Tylenol Tab) 650 mg Q6H PRN PO PAIN LEVEL 1-3 OR FEVER; Start 11/16/18 at 09:00 Docusate Sodium (Colace) 100 mg Q12H PRN PO CONSTIPATION; Start 11/16/18 at 09:00 Magnesium Hydroxide (Milk Of Mag) 30 ml DAILY PRN PO CONSTIPATION; Start 11/16/18 at 09:00 Vancomycin HCl (Vanco Iv Per Pharmacy) 1 ea NOTE XX ; Start 11/16/18 at 09:00 Folic Acid (Folic Acid) 1 mg DAILY GTB Last administered on 11/19/18 08:56; Admin Dose 1 MG; Start 11/16/18 at 09:00 Albuterol/ Ipratropium (Duoneb) 3 ml Q6 PRN HHN sob; Start 11/16/18 at 09:00 Lansoprazole (Prevacid) 30 mg QAM PO Last administered on 11/19/18 08:56; Admin Dose 30 MG; Start 11/16/18 at 09:00 Linagliptin (Tradjenta) 5 mg DAILY GTB Last administered on 11/19/18 08:56; Admin Dose 5 MG; Start 11/16/18 at 09:00 Lorazepam (Ativan) 1 mg HS PRN GTB ANXIETY Last administered on 11/19/18 00:21; Admin Dose 1 MG; Start 11/16/18 at 09:00 Quetiapine Fumarate (Seroquel) 25 mg BID GTB Last administered on 11/19/18 08:56; Admin Dose 25 MG; Start 11/16/18 at 09:00 Senna (Senokot) 1 tab BID PO Last administered on 11/19/18 08:56; Admin Dose 1 TAB; Start 11/16/18 at 09:00 Sevelamer Carbonate (Renvela) 0.8 gm WITH MEALS PO Last administered on 11/19/18 08:56; Admin Dose 0.8 GM; Start 11/16/18 at 11:30 Valproate Sodium (Depakene Liquid Cup) 250 mg Q8 PO Last administered on 11/19/18 06:42; Admin Dose 250 MG; Start 11/16/18 at 14:00 Piperacillin Sod/ Tazobactam Sod 50 ml @ 100 mls/hr Q8 IVPB Last administered on 11/19/18 06:42; Admin Dose 100 MLS/HR; Start 11/16/18 at 14:00 Sodium Chloride (NS) -To prime the dialy... DIRECTED FOR HD PRN IV SBP<90; Start 11/16/18 at 15:00 Pantoprazole (Protonix Iv) 40 mg BID@06,18 IV Last administered on 11/19/18 06:42; Admin Dose 40 MG; Start 11/17/18 at 18:00 Hydralazine HCl (Apresoline) 10 mg Q4H PRN IV ELEVATED BLOOD PRESSURE Last administered on 11/17/18at 14:57; Admin Dose 10 MG; Start 11/17/18 at 10:30 Sodium Chloride 1,000 ml @ 60 mls/hr [id number] IV Last administered on 11/18/18at 13:30; Admin Dose 60 MLS/HR; Start 11/17/18 at 14:13 Acetaminophen/ Hydrocodone Bitart ([place] (5/325)) 1 tab Q3H PRN PO MODERATE PAIN LEVEL 4-6; Start 11/17/18 at 14:30 Amlodipine Besylate (Norvasc) 5 mg BID GTB Last administered on 11/18/18at 20:35; Admin Dose 5 MG; Start 11/18/18 at 09:00 Hydralazine HCl (Apresoline) 25 mg Q8 PO Last administered on 11/19/18at 06:42; Admin Dose 25 MG; Start 11/18/18 at 06:00 Metoprolol Tartrate (Lopressor) 50 mg BID GTB Last administered on 11/18/18at 20:34; Admin Dose 50 MG; Start 11/18/18 at 09:00 Albumin Human 50 ml @ 100 mls/hr WITH DIALYSIS PRN IV SBP<90; Start 11/18/18 at 14:30 Morphine Sulfate (morphine) 6 mg Q4H PRN PO SEVERE PAIN LEVEL 7-10; Start 11/18/18 at 23:00 Docusate Sodium (Colace Liquid Cup) 100 mg DAILY GTB ; Start 11/19/18 at 09:30 TONY VENCES Nov 19, 2018 10:40
[2018-11-19] MEDS: SOD CHLORIDE 0.9% 1,000 ML IV SCH (11:22)
--- NOTE | 2018-11-19 12:46 | CONS ---
Date/Time of Note Date/Time of Note DATE: 11/19/18 TIME: 12:43 Assessment/Plan Assessment/Plan Hospital Course 1. Right hand swelling, likely secondary to hematoma, questionable fall. with compression s/p I and D on 11/17/18 2. Gastrointestinal bleed with melena. 3. Hypertension. 4. Diabetes. 5. End-stage renal disease on hemodialysis. 6. History of falls. 7. Vascular dementia. 8. History of sepsis with VRE. 9. Dysphagia, status post G-tube. 10. History of hip fracture. 11. Thrombocytopenia. 12. Atherosclerotic heart disease. Assessment/Plan - HD today - EGD today - renally dose all meds - abx per ID Result Diagram: 11/19/18 0559 11/19/18 0559 Results 24hrs Laboratory Tests Test 11/19/18 05:57 11/19/18 05:59 Absolute Reticulocyte Count 0.038 Percent Reticulocyte Count 1.3 Iron Level 85 Total Iron Binding Capacity 173 L Percent Iron Saturation 49 White Blood Count 6.8 Red Blood Count 2.98 L Hemoglobin 8.3 L Hematocrit 25.7 L Mean Corpuscular Volume 86.2 Mean Corpuscular Hemoglobin 27.9 L Mean Corpuscular Hemoglobin Concent 32.3 Red Cell Distribution Width 16.8 H Platelet Count 153 Mean Platelet Volume 11.2 H Immature Granulocytes % 1.600 H Neutrophils % 67.5 Lymphocytes % 12.1 L Monocytes % 13.7 H Eosinophils % 4.7 Basophils % 0.4 Nucleated Red Blood Cells % 0.9 H Immature Granulocytes # 0.110 H Neutrophils # 4.6 Lymphocytes # 0.8 Monocytes # 0.9 Eosinophils # 0.3 Basophils # 0.0 Nucleated Red Blood Cells # 0.1 H Sodium Level 143 Potassium Level 3.4 L Chloride Level 107 Carbon Dioxide Level 27 Anion Gap 9 Blood Urea Nitrogen 27 H Creatinine 2.24 H Est Glomerular Filtrat Rate mL/min Glucose Level 89 # Calcium Level 7.6 L Phosphorus Level 3.6 Magnesium Level 2.0 Consultation Date/Type/Reason Admit Date/Time Nov 16, 2018 at 05:51 Initial Consult Date 11/16/18 Type of Consult nephrology Reason for Consultation Dr Stringer Requesting Provider: DYLON WALLS MD 24 HR Interval Summary Constitutional: no complaints, disoriented Exam/Review of Systems Vital Signs Vitals Vital Signs Date Temp Pulse Resp B/P (MAP) Pulse Ox O2 O2 Flow FiO2 Time Delivery Rate 11/19/18 90 12:25 11/19/18 20 121/58 Room Air 09:10 (79) 11/19/18 97.6 95 08:00 11/18/18 2.0 12:28 Intake and Output 11/18/18 11/18/18 11/19/18 1515:00 23:00 07:00 IntakeIntake Total 250 ml 490 ml 600 ml OutputOutput Total 70 ml BalanceBalance 250 ml 420 ml 600 ml Exam left chest perm cath Constitutional: alert Eyes: nl conjunctiva Gastrointestinal: soft, surgical scars, other (GT) Genitourinary - Female: CVA tenderness; No nl adnexae, No nl external genitalia, No CMT, No uterus, No other Musculoskeletal: muscle weakness 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: confused Skin: ecchymosis Medications Medications Current Medications IV Flush (NS 3 ml) 3 ml PER PROTOCOL IV ; Start 11/16/18 at 09:00 Ondansetron HCl (Zofran Inj) 4 mg Q6H PRN IV NAUSEA AND/OR VOMITING; Start 11/16/18 at 09:00 Acetaminophen (Tylenol Tab) 650 mg Q6H PRN PO PAIN LEVEL 1-3 OR FEVER; Start 11/16/18 at 09:00 Docusate Sodium (Colace) 100 mg Q12H PRN PO CONSTIPATION; Start 11/16/18 at 09:00 Magnesium Hydroxide (Milk Of Mag) 30 ml DAILY PRN PO CONSTIPATION; Start 11/16/18 at 09:00 Vancomycin HCl (Vanco Iv Per Pharmacy) 1 ea NOTE XX ; Start 11/16/18 at 09:00 Folic Acid (Folic Acid) 1 mg DAILY GTB Last administered on 11/19/18at 08:56; Admin Dose 1 MG; Start 11/16/18 at 09:00 Albuterol/ Ipratropium (Duoneb) 3 ml Q6 PRN HHN sob; Start 11/16/18 at 09:00 Lansoprazole (Prevacid) 30 mg QAM PO Last administered on 11/19/18at 08:56; Admin Dose 30 MG; Start 11/16/18 at 09:00 Linagliptin (Tradjenta) 5 mg DAILY GTB Last administered on 11/19/18at 08:56; Admin Dose 5 MG; Start 11/16/18 at 09:00 Lorazepam (Ativan) 1 mg HS PRN GTB ANXIETY Last administered on 11/19/18 00:21; Admin Dose 1 MG; Start 11/16/18 at 09:00 Quetiapine Fumarate (Seroquel) 25 mg BID GTB Last administered on 11/19/18 08:56; Admin Dose 25 MG; Start 11/16/18 at 09:00 Senna (Senokot) 1 tab BID PO Last administered on 11/19/18 08:56; Admin Dose 1 TAB; Start 11/16/18 at 09:00 Sevelamer Carbonate (Renvela) 0.8 gm WITH MEALS PO Last administered on 11/19/18 08:56; Admin Dose 0.8 GM; Start 11/16/18 at 11:30 Valproate Sodium (Depakene Liquid Cup) 250 mg Q8 PO Last administered on 11/19/18 06:42; Admin Dose 250 MG; Start 11/16/18 at 14:00 Piperacillin Sod/ Tazobactam Sod 50 ml @ 100 mls/hr Q8 IVPB Last administered on 11/19/18 06:42; Admin Dose 100 MLS/HR; Start 11/16/18 at 14:00 Sodium Chloride (NS) -To prime the dialy... DIRECTED FOR HD PRN IV SBP<90; Start 11/16/18 at 15:00 Pantoprazole (Protonix Iv) 40 mg BID@06,18 IV Last administered on 11/19/18 06:42; Admin Dose 40 MG; Start 11/17/18 at 18:00 Hydralazine HCl (Apresoline) 10 mg Q4H PRN IV ELEVATED BLOOD PRESSURE Last administered on 11/17/18 14:57; Admin Dose 10 MG; Start 11/17/18 at 10:30 Sodium Chloride 1,000 ml @ 60 mls/hr [id number] IV Last administered on 11/19/18 11:22; Admin Dose 60 MLS/HR; Start 11/17/18 at 14:13 Acetaminophen/ Hydrocodone Bitart ([place] (5/325)) 1 tab Q3H PRN PO MODERATE PAIN LEVEL 4-6; Start 11/17/18 at 14:30 Amlodipine Besylate (Norvasc) 5 mg BID GTB Last administered on 11/18/18at 20:35; Admin Dose 5 MG; Start 11/18/18 at 09:00 Hydralazine HCl (Apresoline) 25 mg Q8 PO Last administered on 11/19/18at 06:42; Admin Dose 25 MG; Start 11/18/18 at 06:00 Metoprolol Tartrate (Lopressor) 50 mg BID GTB Last administered on 11/18/18at 20:34; Admin Dose 50 MG; Start 11/18/18 at 09:00 Albumin Human 50 ml @ 100 mls/hr WITH DIALYSIS PRN IV SBP<90; Start 11/18/18 at 14:30 Morphine Sulfate (morphine) 6 mg Q4H PRN PO SEVERE PAIN LEVEL 7-10; Start 11/18/18 at 23:00 Docusate Sodium (Colace Liquid Cup) 100 mg DAILY GTB ; Start 11/19/18 at 09:30 FLAVIO CLAYTON Nov 19, 2018 12:46
[2018-11-19] MEDS: DOCUSATE SODIUM 10 MG/ML (10ML CUP) GTB SCH (13:12)
--- NOTE | 2018-11-19 14:00 | PN ---
DATE: 11/19/2018 SUBJECTIVE: The patient was seen, appears to be comfortable, anxious, status post dialysis today. N oted a drop in hemoglobin from 9.2 to 8.3. We will continue to monitor. PHYSICAL EXAMINATION: VITAL SIGNS: Temperature is 97.6, pulse 85, respiration is 20, blood pressure 121/58, saturation 95% . GENERAL: The patient is frail, pale, anxious. CARDIOVASCULAR: S1, S2. Regular rate. LUNGS: Clear. ABDOMEN: Soft, nontender. EXTREMITIES: No clubbing, cyanosis or edema. Right upper extremity is currently elevated in a speci al support, status post surgery. LABORATORY DATA: White count is 6.8, hemoglobin 8.3, hematocrit 26, platelet count 153, neutrophils 68%, lymphocytes 21%. Chemistry: Sodium 143, potassium 3.4, chloride 107, bicarbonate 27, BUN is 27 , creatinine 2.24, glucose of 89. B12 is 940. Folic acid is greater than 20. Iron levels were actu ally normal. TIBC is low at 173, suggestive of anemia of chronic disease. The patient on blood cult ures, MRSA screening negative. Wound culture also shows no organism. MEDICATIONS: Include: 1. Colace. 2. Morphine p.r.n. 3. Albumin. 4. Norvasc. 5. Metoprolol. 6. Hydralazine. 7. Protonix. 8. [place]. 9. Depakote. 10. Zosyn. 11. Zofran. 12. Tylenol. 13. Colace. 14. Milk of [place]. 15. Vancomycin. 16. Folic acid. 17. Prevacid. 18. Tradjenta. 19. Ativan. 20. Seroquel. 21. Senna. ASSESSMENT AND PLAN: This is an 83-year-old [place] female with history of end-stage renal disease, chronic obstructive pulmonary disease, vascular dementia and cerebrovascular accident, who presented with gastrointestinal bleed and also severe right hand and wrist swelling consistent with hematoma. 1. Right hematoma status post evacuation. Continue wound care and arm elevation. 2. Anemia. Monitor H and H, partly maybe hemodilution. Transfuse p.r.n. Hep-Lock IV fluids. GI i s following. 3. Questionable gastrointestinal bleed. Follow up GI recommendation. 4. End-stage renal disease. Dialysis 3 times a week Thursday, Thursday, Thursday, status post dialysis today. 5. Dysphagia. Continue bolus feeding. Pureed diet for oral gratification. 6. Diabetes mellitus. Glucose levels are good. Continue Accu-Cheks. 7. Hypertension. The patient's blood pressure is controlled as well. 8. Anxiety and psychosis. Continue antipsychotics and anxiolytics. The patient remained stable. DISPOSITION: Hopefully back to the nursing home facility once H and H remains stable. Dictated By: DYLON HULL/NTS Conf#: [id number] DID#: [id number] CC: CHRISS WELCH MD;*EndCC*
--- NOTE | 2018-11-19 15:46 | CONS ---
Date/Time of Note Date/Time of Note DATE: 11/19/18 TIME: 15:44 Assessment/Plan Assessment/Plan Hospital Course No acute events. Patient is status post hemodialysis awake, confused his overnight. Right upper extremity Armani wrapped WBC 6.8 H&H 8.3 and 25.7 platelets 153 neutrophils 67.5 Microbiology: Intraoperative cultures preliminary negative Antimicrobials: Vanco, Zosyn Indwelling: Left chest permacath, PEG Physical examination: Chronically ill-appearing elderly woman who is awake, confused, in no distress. Head atraumatic normocephalic. Neck is supple. Chest rise symmetrical breath sounds diminished bases. Heart: S1-S2. Abdomen soft bowel sounds present extremities without R FA edema/erythema Assessment: 1. Right hand hematoma, status post I&D 11/17/18 2. Status post VRE bacteremia, status post new Pcath 3. End-stage renal disease, hemodialysis dependent 4. Dementia 5. Failure to thrive 6. Diabetes 8. Anemia Plan: Remains stable, intraoperative cultures are negative, we will discontinue antibiotics and observe her, follow ortho recommendations Result Diagram: 11/19/18 0559 11/19/18 0559 Results 24hrs Laboratory Tests Test 11/19/18 05:57 11/19/18 05:59 Absolute Reticulocyte Count 0.038 Percent Reticulocyte Count 1.3 Iron Level 85 Total Iron Binding Capacity 173 L Percent Iron Saturation 49 Ferritin 1090.0 H Vitamin B12 Level 940 H Folate > 20.0 H White Blood Count 6.8 Red Blood Count 2.98 L Hemoglobin 8.3 L Hematocrit 25.7 L Mean Corpuscular Volume 86.2 Mean Corpuscular Hemoglobin 27.9 L Mean Corpuscular Hemoglobin Concent 32.3 Red Cell Distribution Width 16.8 H Platelet Count 153 Mean Platelet Volume 11.2 H Immature Granulocytes % 1.600 H Neutrophils % 67.5 Lymphocytes % 12.1 L Monocytes % 13.7 H Eosinophils % 4.7 Basophils % 0.4 Nucleated Red Blood Cells % 0.9 H Immature Granulocytes # 0.110 H Neutrophils # 4.6 Lymphocytes # 0.8 Monocytes # 0.9 Eosinophils # 0.3 Basophils # 0.0 Nucleated Red Blood Cells # 0.1 H Sodium Level 143 Potassium Level 3.4 L Chloride Level 107 Carbon Dioxide Level 27 Anion Gap 9 Blood Urea Nitrogen 27 H Creatinine 2.24 H Est Glomerular Filtrat Rate mL/min Glucose Level 89 # Calcium Level 7.6 L Phosphorus Level 3.6 Magnesium Level 2.0 Consultation Date/Type/Reason Admit Date/Time Nov 16, 2018 at 05:51 Initial Consult Date 11/16/18 Type of Consult id Requesting Provider: DYLON WALLS MD Exam/Review of Systems Vital Signs Vitals Vital Signs Date Temp Pulse Resp B/P (MAP) Pulse Ox O2 O2 Flow FiO2 Time Delivery Rate 11/19/18 90 12:25 11/19/18 20 121/58 Room Air 09:10 (79) 11/19/18 97.6 95 08:00 11/18/18 2.0 12:28 Intake and Output 11/18/18 11/18/18 11/19/18 1515:00 23:00 07:00 IntakeIntake Total 250 ml 490 ml 600 ml OutputOutput Total 70 ml BalanceBalance 250 ml 420 ml 600 ml Medications Medications Current Medications IV Flush (NS 3 ml) 3 ml PER PROTOCOL IV ; Start 11/16/18 at 09:00 Ondansetron HCl (Zofran Inj) 4 mg Q6H PRN IV NAUSEA AND/OR VOMITING; Start 11/16/18 at 09:00 Acetaminophen (Tylenol Tab) 650 mg Q6H PRN PO PAIN LEVEL 1-3 OR FEVER; Start 11/16/18 at 09:00 Docusate Sodium (Colace) 100 mg Q12H PRN PO CONSTIPATION; Start 11/16/18 at 09:00 Magnesium Hydroxide (Milk Of Mag) 30 ml DAILY PRN PO CONSTIPATION; Start 11/16/18 at 09:00 Vancomycin HCl (Vanco Iv Per Pharmacy) 1 ea NOTE XX ; Start 11/16/18 at 09:00 Folic Acid (Folic Acid) 1 mg DAILY GTB Last administered on 11/19/18at 08:56; Admin Dose 1 MG; Start 11/16/18 at 09:00 Albuterol/ Ipratropium (Duoneb) 3 ml Q6 PRN HHN sob; Start 11/16/18 at 09:00 Lansoprazole (Prevacid) 30 mg QAM PO Last administered on 11/19/18at 08:56; Admin Dose 30 MG; Start 11/16/18 at 09:00 Linagliptin (Tradjenta) 5 mg DAILY GTB Last administered on 11/19/18 08:56; Admin Dose 5 MG; Start 11/16/18 at 09:00 Lorazepam (Ativan) 1 mg HS PRN GTB ANXIETY Last administered on 11/19/18 00:21; Admin Dose 1 MG; Start 11/16/18 at 09:00 Quetiapine Fumarate (Seroquel) 25 mg BID GTB Last administered on 11/19/18 08:56; Admin Dose 25 MG; Start 11/16/18 at 09:00 Senna (Senokot) 1 tab BID PO Last administered on 11/19/18 08:56; Admin Dose 1 TAB; Start 11/16/18 at 09:00 Sevelamer Carbonate (Renvela) 0.8 gm WITH MEALS PO Last administered on 11/19/18 13:12; Admin Dose 0.8 GM; Start 11/16/18 at 11:30 Valproate Sodium (Depakene Liquid Cup) 250 mg Q8 PO Last administered on 11/19/18 13:12; Admin Dose 250 MG; Start 11/16/18 at 14:00 Piperacillin Sod/ Tazobactam Sod 50 ml @ 100 mls/hr Q8 IVPB Last administered on 11/19/18 13:12; Admin Dose 100 MLS/HR; Start 11/16/18 at 14:00 Sodium Chloride (NS) -To prime the dialy... DIRECTED FOR HD PRN IV SBP<90; S tart 11/16/18 at 15:00 Pantoprazole (Protonix Iv) 40 mg BID@06,18 IV Last administered on 11/19/18at 0 6:42; Admin Dose 40 MG; Start 11/17/18 at 18:00 Hydralazine HCl (Apresoline) 10 mg Q4H PRN IV ELEVATED BLOOD PRESSURE Last administered on 11/17/18 14:57; Admin Dose 10 MG; Start 11/17/18 at 10:30 Acetaminophen/ Hydrocodone Bitart ([place] (5/325)) 1 tab Q3H PRN PO MODERATE PAIN LEVEL 4-6; Start 11/17/18 at 14:30 Amlodipine Besylate (Norvasc) 5 mg BID GTB Last administered on 11/18/18 20:35; Admin Dose 5 MG; Start 11/18/18 at 09:00 Hydralazine HCl (Apresoline) 25 mg Q8 PO Last administered on 11/19/18at 13:13; Admin Dose 25 MG; Start 11/18/18 at 06:00 Metoprolol Tartrate (Lopressor) 50 mg BID GTB Last administered on 11/18/18at 20:34; Admin Dose 50 MG; Start 11/18/18 at 09:00 Albumin Human 50 ml @ 100 mls/hr WITH DIALYSIS PRN IV SBP<90; Start 11/18/18 at 14:30 Morphine Sulfate (morphine) 6 mg Q4H PRN PO SEVERE PAIN LEVEL 7-10; Start 11/18/18 at 23:00 Docusate Sodium (Colace Liquid Cup) 100 mg DAILY GTB Last administered on 11/19/18at 13:12; Admin Dose 100 MG; Start 11/19/18 at 09:30 PHYLICIA HOLCOMB NP Nov 19, 2018 15:46
--- NOTE | 2018-11-19 16:06 | CONS ---
Date/Time of Note Date/Time of Note DATE: 11/19/18 TIME: 16:04 Consult Date/Type/Reason Admit Date/Time Nov 16, 2018 at 05:51 Initial Consult Date 11/16/18 Type of Consultation: cv Requesting Provider: DYLON WALLS MD Subjective Cardiology follow up note Sl DW/ Staff pt is still getting agitated and yelling/screaming no report of any chest pain or pressure or palpitations. s/p I/D 11/17 O: General: Elderly frail male in no acute distress HEENT: NC/AT. pupils are equal. round. NECK: NO JVD. no stridor. CV: RRR. systolic murmur; no gallop or rubs. PULM: no wheezing or rhonchi. GI: SOFT, NT, ND, no rebound or guarding Extremity: Right upper extremity is covered with dressing neuro: awake and alert, OX1 only. Psych: agitated and yelling rectal: deferred An x-ray shows 1. Extensive soft-tissue swelling involving the dorsum of the right hand and wrist but no soft tissue gas or foreign body. 2. No evidence of fracture dislocation or erosions or plain imaging evidence of osteomyelitis. review of old chart shows ECHO done Oct 2018: Normal left ventricular systolic function. Normal left ventricular cavity size. Moderate concentric left ventricular hypertrophy. Ejection fraction is visually estimated at 65 %. Abnormal Diastolic Function. Mitral valve leaflets appear moderately thickened. Moderate mitral annular calcification. Trace mitral regurgitation. Aortic valve not well visualized. No hemodynamically significant aortic stenosis by doppler. Aortic sclerosis without significant stenosis. Aortic cusps appear mildly calcified. Mild to moderate aortic valve regurgitation. Estimated peak PA systolic pressure 40 mmHg. Tricuspid valve appears moderately thickened. There is mild tricuspid regurgitation. ECG 11/16/18: NSR no ischemia Objective Vital Signs Date Temp Pulse Resp B/P (MAP) Pulse Ox O2 O2 Flow FiO2 Time Delivery Rate 11/19/18 90 12:25 11/19/18 20 121/58 Room Air 09:10 (79) 11/19/18 97.6 95 08:00 11/18/18 2.0 12:28 Intake and Output 11/18/18 11/18/18 11/19/18 1515:00 23:00 07:00 IntakeIntake Total 250 ml 490 ml 600 ml OutputOutput Total 70 ml BalanceBalance 250 ml 420 ml 600 ml Results/Medications Result Diagram: 11/19/18 0559 11/19/18 0559 Results 24 hrs Laboratory Tests Test 11/19/18 05:57 11/19/18 05:59 Absolute Reticulocyte Count 0.038 Percent Reticulocyte Count 1.3 Iron Level 85 Total Iron Binding Capacity 173 L Percent Iron Saturation 49 Ferritin 1090.0 H Vitamin B12 Level 940 H Folate > 20.0 H White Blood Count 6.8 Red Blood Count 2.98 L Hemoglobin 8.3 L Hematocrit 25.7 L Mean Corpuscular Volume 86.2 Mean Corpuscular Hemoglobin 27.9 L Mean Corpuscular Hemoglobin Concent 32.3 Red Cell Distribution Width 16.8 H Platelet Count 153 Mean Platelet Volume 11.2 H Immature Granulocytes % 1.600 H Neutrophils % 67.5 Lymphocytes % 12.1 L Monocytes % 13.7 H Eosinophils % 4.7 Basophils % 0.4 Nucleated Red Blood Cells % 0.9 H Immature Granulocytes # 0.110 H Neutrophils # 4.6 Lymphocytes # 0.8 Monocytes # 0.9 Eosinophils # 0.3 Basophils # 0.0 Nucleated Red Blood Cells # 0.1 H Sodium Level 143 Potassium Level 3.4 L Chloride Level 107 Carbon Dioxide Level 27 Anion Gap 9 Blood Urea Nitrogen 27 H Creatinine 2.24 H Est Glomerular Filtrat Rate mL/min Glucose Level 89 # Calcium Level 7.6 L Phosphorus Level 3.6 Magnesium Level 2.0 Medications Current Medications IV Flush (NS 3 ml) 3 ml PER PROTOCOL IV ; Start 11/16/18 at 09:00 Ondansetron HCl (Zofran Inj) 4 mg Q6H PRN IV NAUSEA AND/OR VOMITING; Start 11/16/18 at 09:00 Acetaminophen (Tylenol Tab) 650 mg Q6H PRN PO PAIN LEVEL 1-3 OR FEVER; Start 11/16/18 at 09:00 Docusate Sodium (Colace) 100 mg Q12H PRN PO CONSTIPATION; Start 11/16/18 at 09:00 Magnesium Hydroxide (Milk Of Mag) 30 ml DAILY PRN PO CONSTIPATION; Start 11/16/18 at 09:00 Folic Acid (Folic Acid) 1 mg DAILY GTB Last administered on 11/19/18at 08:56; Admin Dose 1 MG; Start 11/16/18 at 09:00 Albuterol/ Ipratropium (Duoneb) 3 ml Q6 PRN HHN sob; Start 11/16/18 at 09:00 Lansoprazole (Prevacid) 30 mg QAM PO Last administered on 11/19/18 08:56; Admin Dose 30 MG; Start 11/16/18 at 09:00 Linagliptin (Tradjenta) 5 mg DAILY GTB Last administered on 11/19/18 08:56; Admin Dose 5 MG; Start 11/16/18 at 09:00 Lorazepam (Ativan) 1 mg HS PRN GTB ANXIETY Last administered on 11/19/18 00:21; Admin Dose 1 MG; Start 11/16/18 at 09:00 Quetiapine Fumarate (Seroquel) 25 mg BID GTB Last administered on 11/19/18 08:56; Admin Dose 25 MG; Start 11/16/18 at 09:00 Senna (Senokot) 1 tab BID PO Last administered on 11/19/18 08:56; Admin Dose 1 TAB; Start 11/16/18 at 09:00 Sevelamer Carbonate (Renvela) 0.8 gm WITH MEALS PO Last administered on 11/19 13:12; Admin Dose 0.8 GM; Start 11/16/18 at 11:30 Valproate Sodium (Depakene Liquid Cup) 250 mg Q8 PO Last administered on 11/19/18 13:12; Admin Dose 250 MG; Start 11/16/18 at 14:00 Sodium Chloride (NS) -To prime the dialy... DIRECTED FOR HD PRN IV SBP<90; Start 11/16/18 at 15:00 Pantoprazole (Protonix Iv) 40 mg BID@06,18 IV Last administered on 11/19/18 06:42; Admin Dose 40 MG; Start 11/17/18 at 18:00 Hydralazine HCl (Apresoline) 10 mg Q4H PRN IV ELEVATED BLOOD PRESSURE Last administered on 11/17/18 14:57; Admin Dose 10 MG; Start 11/17/18 at 10:30 Acetaminophen/ Hydrocodone Bitart ([place] (5/325)) 1 tab Q3H PRN PO MODERATE PAIN LEVEL 4-6; Start 11/17/18 at 14:30 Amlodipine Besylate (Norvasc) 5 mg BID GTB Last administered on 11/18/18at 20:35; Admin Dose 5 MG; Start 11/18/18 at 09:00 Hydralazine HCl (Apresoline) 25 mg Q8 PO Last administered on 11/19/18at 13:13; Admin Dose 25 MG; Start 11/18/18 at 06:00 Metoprolol Tartrate (Lopressor) 50 mg BID GTB Last administered on 11/18/18at 20:34; Admin Dose 50 MG; Start 11/18/18 at 09:00 Albumin Human 50 ml @ 100 mls/hr WITH DIALYSIS PRN IV SBP<90; Start 11/18/18 at 14:30 Morphine Sulfate (morphine) 6 mg Q4H PRN PO SEVERE PAIN LEVEL 7-10; Start 11/18/18 at 23:00 Docusate Sodium (Colace Liquid Cup) 100 mg DAILY GTB Last administered on 11/19/18at 13:12; Admin Dose 100 MG; Start 11/19/18 at 09:30 Assessment/Plan Chief Complaint/Hosp Course Cardiovascular preop evaluation Right hand hematoma Renal failure on dialysis Hypertension Dementia Anemia Possible GI bleed AI Recommendations: transfusion with HD prn Dialysis as per renal team Her old chart was reviewed. In 2013 patient had a stress test which showed ejection fraction of 80% and no evidence of reversible ischemia considered a normal stress test at the time Based on above no further cardiac workup would be indicated. Continue with the blood pressure medication especially beta-farrah up to and including day of surgery Thank you for his referral. We will continue to follow along with you as needed CHRISTEN ESCOBEDO MD [facility] CHRISTEN ESCOBEDO MD Nov 19, 2018 16:06
[2018-11-19] MEDS: ACETAMINOPHEN 325 MG TAB PO PRN (16:46)
[2018-11-20 02:00] VITALS: BP 127/82; PULSE 100; RESP 18
[2018-11-20] MEDS: PANTOPRAZOLE 40 MG INJ IV SCH ×2 (06:08→17:12)
[2018-11-20] MEDS: VALPROIC ACID LIQUID CUP 250 MG/5 ML CUP PO SCH ×3 (06:08→22:11)
[2018-11-20 07:20] VITALS: BP 143/53; PULSE 98; RESP 17
[2018-11-20] MEDS: DOCUSATE SODIUM 10 MG/ML (10ML CUP) GTB SCH (08:11)
[2018-11-20] MEDS: SEVELAMER CARBONATE 0.8 GM PKT PO SCH ×3 (08:11→17:12)
[2018-11-20] MEDS: FOLIC ACID 1 MG TAB GTB SCH (08:12)
[2018-11-20] MEDS: LINAGLIPTIN 5 MG TABLET GTB SCH (08:12)
[2018-11-20] MEDS: QUETIAPINE 25 MG TAB GTB SCH ×2 (08:12→20:55)
[2018-11-20] MEDS: LANSOPRAZOLE 30 MG CAP PO SCH (08:12)
[2018-11-20] MEDS: AMLODIPINE 5 MG TAB GTB SCH ×2 (08:12→20:56)
[2018-11-20] MEDS: METOPROLOL 50 MG TAB GTB SCH ×2 (08:13→20:56)
[2018-11-20] MEDS: SENNA TAB PO SCH ×2 (08:13→20:55)
--- NOTE | 2018-11-20 13:05 | CONS ---
Date/Time of Note Date/Time of Note DATE: 11/20/18 TIME: 13:04 Assessment/Plan Assessment/Plan Assessment/Plan Assessment/Plan Hospital Course 83 yo female in ESRD on HD presents for melena and anemia and also found to have edematous Rt hand/wrist 1. UGIB manifested through melena and anemia 2. Anemia, acute on chronic -Hgb 6.8->10.6->9.2->8.3 -No evidence of active GI bleeding, consider etiology of blood loss anemia to be from hematoma in hand -s/p 2 units with HD on 11/17 3. ESRD on HD -receiving HD currently 4. Hematoma of Rt hand and wrist -I and D drainage by Dr. Dean 11/17 5. Dysphagia -on tube feeds and pureed nectar for oral gratification 6. DM2 7. HTN 8. H/O diastolic dysfunction heart failure 9. S/P EGD 11/18 10. Moderate gastritis with no bleeding noted. 11. Confusion Plan: Anemia work up Re start Novasource bolus TID Monitor HH closely and for active GI bleeding PPI BID Result Diagram: 11/20/18 0506 11/20/18 0506 Results 24hrs Laboratory Tests Test 11/19/18 18:10 11/20/18 05:06 11/20/18 08:10 Stool Occult Blood NEGATIVE White Blood Count 7.7 Red Blood Count 3.09 L Hemoglobin 8.6 L Hematocrit 26.4 L Mean Corpuscular Volume 85.4 Mean Corpuscular Hemoglobin 27.8 L Mean Corpuscular Hemoglobin Concent 32.6 Red Cell Distribution Width 16.2 H Platelet Count 171 Mean Platelet Volume 11.0 H Immature Granulocytes % 1.300 H Neutrophils % 71.4 Lymphocytes % 8.6 L Monocytes % 12.4 H Eosinophils % 5.9 Basophils % 0.4 Nucleated Red Blood Cells % 1.0 H Immature Granulocytes # 0.100 H Neutrophils # 5.5 Lymphocytes # 0.7 L Monocytes # 1.0 H Eosinophils # 0.5 Basophils # 0.0 Nucleated Red Blood Cells # 0.1 H Sodium Level 143 Potassium Level 3.4 L Chloride Level 104 Carbon Dioxide Level 31 Anion Gap 8 Blood Urea Nitrogen 17 # Creatinine 1.62 H Est Glomerular Filtrat Rate mL/min Glucose Level 139 # Calcium Level 8.3 L Phosphorus Level 1.5 #L Magnesium Level 2.2 Bedside Glucose 119 Consultation Date/Type/Reason Admit Date/Time Nov 16, 2018 at 05:51 Initial Consult Date 11/16/18 Requesting Provider: DYLON WALLS MD 24 HR Interval Summary Constitutional: no complaints Exam/Review of Systems Vital Signs Vitals Vital Signs Date Temp Pulse Resp B/P (MAP) Pulse Ox O2 O2 Flow FiO2 Time Delivery Rate 11/20/18 98.0 98 17 143/53 96 Room Air 07:20 (83) 11/18/18 2.0 12:28 Intake and Output 11/19/18 11/19/18 11/20/18 1515:00 23:00 07:00 IntakeIntake Total 430 ml 412 ml 50 ml OutputOutput Total 240 ml 30 ml BalanceBalance 190 ml 382 ml 50 ml Exam Constitutional: alert, oriented, well developed Psych: no complaints, nl mood/affect Head: normocephalic, atraumatic Eyes: nl conjunctiva, EOMI, nl lids, nl sclera, PERRL ENMT: nl external ears & nose, nl lips & teeth, nl nasal mucosa & septum Neck: supple, non-tender Respiratory: clear to auscultation, normal air movement Cardiovascular: regular rate and rhythm, nl pulses Gastrointestinal: soft, nl liver, spleen, non-tender Musculoskeletal: nl extremities to inspection, nl gait and stance Extremities: normal pulses 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: 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, nl mental status, nl speech, nl strength Skin: nl turgor; No rash or lesions Lymph: nl lymph nodes Medications Medications Current Medications IV Flush (NS 3 ml) 3 ml PER PROTOCOL IV ; Start 11/16/18 at 09:00 Ondansetron HCl (Zofran Inj) 4 mg Q6H PRN IV NAUSEA AND/OR VOMITING; Start 11/16/18 at 09:00 Acetaminophen (Tylenol Tab) 650 mg Q6H PRN PO PAIN LEVEL 1-3 OR FEVER Last administered on 11/19/18at 16:46; Admin Dose 650 MG; Start 11/16/18 at 09:00 Docusate Sodium (Colace) 100 mg Q12H PRN PO CONSTIPATION; Start 11/16/18 at 09:00 Magnesium Hydroxide (Milk Of Mag) 30 ml DAILY PRN PO CONSTIPATION; Start at 09:00 Folic Acid (Folic Acid) 1 mg DAILY GTB Last administered on 11/20/18 08:12; Admin Dose 1 MG; Start 11/16/18 at 09:00 Albuterol/ Ipratropium (Duoneb) 3 ml Q6 PRN HHN sob; Start 11/16/18 at 09:00 Lansoprazole (Prevacid) 30 mg QAM PO Last administered on 11/20/18 08:12; Admin Dose 30 MG; Start 11/16/18 at 09:00 Linagliptin (Tradjenta) 5 mg DAILY GTB Last administered on 11/20/18 08:12; Admin Dose 5 MG; Start 11/16/18 at 09:00 Lorazepam (Ativan) 1 mg HS PRN GTB ANXIETY Last administered on 11/19/18 22:23; Admin Dose 1 MG; Start 11/16/18 at 09:00 Quetiapine Fumarate (Seroquel) 25 mg BID GTB Last administered on 11/20/18 08:12; Admin Dose 25 MG; Start 11/16/18 at 09:00 Senna (Senokot) 1 tab BID PO Last administered on 11/20/18 08:13; Admin Dose 1 TAB; Start 11/16/18 at 09:00 Sevelamer Carbonate (Renvela) 0.8 gm WITH MEALS PO Last administered on 11/20/18 11:33; Admin Dose 0.8 GM; Start 11/16/18 at 11:30 Valproate Sodium (Depakene Liquid Cup) 250 mg Q8 PO Last administered on 11/20/18 06:08; Admin Dose 250 MG; Start 11/16/18 at 14:00 Sodium Chloride (NS) -To prime the dialy... DIRECTED FOR HD PRN IV SBP<90; Start 11/16/18 at 15:00 Pantoprazole (Protonix Iv) 40 mg BID@06,18 IV Last administered on 11/20/18 06:08; Admin Dose 40 MG; Start 11/17/18 at 18:00 Hydralazine HCl (Apresoline) 10 mg Q4H PRN IV ELEVATED BLOOD PRESSURE Last administered on 11/17/18 14:57; Admin Dose 10 MG; Start 11/17/18 at 10:30 Acetaminophen/ Hydrocodone Bitart ([place] (5/325)) 1 tab Q3H PRN PO MODERATE PAIN LEVEL 4-6; Start 11/17/18 at 14:30 Amlodipine Besylate (Norvasc) 5 mg BID GTB Last administered on 11/20/18at 08:12; Admin Dose 5 MG; Start 11/18/18 at 09:00 Hydralazine HCl (Apresoline) 25 mg Q8 PO Last administered on 11/20/18at 06:13; Admin Dose 25 MG; Start 11/18/18 at 06:00 Metoprolol Tartrate (Lopressor) 50 mg BID GTB Last administered on 11/20/18at 08:13; Admin Dose 50 MG; Start 11/18/18 at 09:00 Albumin Human 50 ml @ 100 mls/hr WITH DIALYSIS PRN IV SBP<90; Start 11/18/18 at 14:30 Morphine Sulfate (morphine) 6 mg Q4H PRN PO SEVERE PAIN LEVEL 7-10; Start 11/18/18 at 23:00 Docusate Sodium (Colace Liquid Cup) 100 mg DAILY GTB Last administered on 11/20/18at 08:11; Admin Dose 100 MG; Start 11/19/18 at 09:30 CHRISS WELCH MD Nov 20, 2018 13:05
--- NOTE | 2018-11-20 13:41 | CONS ---
Date/Time of Note Date/Time of Note DATE: 11/20/18 TIME: 13:38 Assessment/Plan Assessment/Plan Result Diagram: 11/20/18 0506 11/20/18 0506 Results 24hrs Laboratory Tests Test 11/19/18 18:10 11/20/18 05:06 11/20/18 08:10 Stool Occult Blood NEGATIVE White Blood Count 7.7 Red Blood Count 3.09 L Hemoglobin 8.6 L Hematocrit 26.4 L Mean Corpuscular Volume 85.4 Mean Corpuscular Hemoglobin 27.8 L Mean Corpuscular Hemoglobin Concent 32.6 Red Cell Distribution Width 16.2 H Platelet Count 171 Mean Platelet Volume 11.0 H Immature Granulocytes % 1.300 H Neutrophils % 71.4 Lymphocytes % 8.6 L Monocytes % 12.4 H Eosinophils % 5.9 Basophils % 0.4 Nucleated Red Blood Cells % 1.0 H Immature Granulocytes # 0.100 H Neutrophils # 5.5 Lymphocytes # 0.7 L Monocytes # 1.0 H Eosinophils # 0.5 Basophils # 0.0 Nucleated Red Blood Cells # 0.1 H Sodium Level 143 Potassium Level 3.4 L Chloride Level 104 Carbon Dioxide Level 31 Anion Gap 8 Blood Urea Nitrogen 17 # Creatinine 1.62 H Est Glomerular Filtrat Rate mL/min Glucose Level 139 # Calcium Level 8.3 L Phosphorus Level 1.5 #L Magnesium Level 2.2 Bedside Glucose 119 Consultation Date/Type/Reason Admit Date/Time Nov 16, 2018 at 05:51 Initial Consult Date SUBJECTIVE: Patient is awake, alert, afebrile. Looks comfortable. VS: stable. T: 98.0 LABS: reviewed. WBC-7.7 Microbiology: Intraoperative cultures preliminary negative Antimicrobials: Vanco, Zosyn Indwelling: Left chest permacath, PEG PHYSICAL EXAM: GEN: Chronically ill-appearing elderly woman who is awake, confused, in no distress. HENT: Head atraumatic normocephalic. Neck is supple. PULM: Chest rise symmetrical breath sounds diminished bases. Heart: S1-S2. Abdomen soft bowel sounds present Extremities without R FA edema/erythema Assessment: 1. Right hand hematoma, status post I&D 11/17/18 2. Status post VRE bacteremia, status post new Pcath 3. End-stage renal disease, hemodialysis dependent 4. Dementia 5. Failure to thrive 6. Diabetes 8. Anemia Plan: Patient remains stable. Continue to monitor off of antbx. Requesting Provider: DYLON WALLS MD Exam/Review of Systems Vital Signs Vitals Vital Signs Date Temp Pulse Resp B/P (MAP) Pulse Ox O2 O2 Flow FiO2 Time Delivery Rate 11/20/18 98.0 98 17 143/53 96 Room Air 07:20 (83) 11/18/18 2.0 12:28 Intake and Output 11/19/18 11/19/18 11/20/18 1515:00 23:00 07:00 IntakeIntake Total 430 ml 412 ml 50 ml OutputOutput Total 240 ml 30 ml BalanceBalance 190 ml 382 ml 50 ml Medications Medications Current Medications IV Flush (NS 3 ml) 3 ml PER PROTOCOL IV ; Start 11/16/18 at 09:00 Ondansetron HCl (Zofran Inj) 4 mg Q6H PRN IV NAUSEA AND/OR VOMITING; Start 11/16/18 at 09:00 Acetaminophen (Tylenol Tab) 650 mg Q6H PRN PO PAIN LEVEL 1-3 OR FEVER Last administered on 11/19/18at 16:46; Admin Dose 650 MG; Start 11/16/18 at 09:00 Docusate Sodium (Colace) 100 mg Q12H PRN PO CONSTIPATION; Start 11/16/18 at 09:00 Magnesium Hydroxide (Milk Of Mag) 30 ml DAILY PRN PO CONSTIPATION; Start 11/16/18 at 09:00 Folic Acid (Folic Acid) 1 mg DAILY GTB Last administered on 11/20/18at 08:12; Admin Dose 1 MG; Start 11/16/18 at 09:00 Albuterol/ Ipratropium (Duoneb) 3 ml Q6 PRN HHN sob; Start 11/16/18 at 09:00 Lansoprazole (Prevacid) 30 mg QAM PO Last administered on 11/20/18at 08:12; Admin Dose 30 MG; Start 11/16/18 at 09:00 Linagliptin (Tradjenta) 5 mg DAILY GTB Last administered on 11/20/18at 08:12; Admin Dose 5 MG; Start 11/16/18 at 09:00 Lorazepam (Ativan) 1 mg HS PRN GTB ANXIETY Last administered on 11/19/18at 22:23; Admin Dose 1 MG; Start 11/16/18 at 09:00 Quetiapine Fumarate (Seroquel) 25 mg BID GTB Last administered on 11/20/18 08:12; Admin Dose 25 MG; Start 11/16/18 at 09:00 Senna (Senokot) 1 tab BID PO Last administered on 11/20/18 08:13; Admin Dose 1 TAB; Start 11/16/18 at 09:00 Sevelamer Carbonate (Renvela) 0.8 gm WITH MEALS PO Last administered on 11/20/18 11:33; Admin Dose 0.8 GM; Start 11/16/18 at 11:30 Valproate Sodium (Depakene Liquid Cup) 250 mg Q8 PO Last administered on 11/20/18 06:08; Admin Dose 250 MG; Start 11/16/18 at 14:00 Sodium Chloride (NS) -To prime the dialy... DIRECTED FOR HD PRN IV SBP<90; Start 11/16/18 at 15:00 Pantoprazole (Protonix Iv) 40 mg BID@06,18 IV Last administered on 11/20/18 06:08; Admin Dose 40 MG; Start 11/17/18 at 18:00 Hydralazine HCl (Apresoline) 10 mg Q4H PRN IV ELEVATED BLOOD PRESSURE Last administered on 11/17/18 14:57; Admin Dose 10 MG; Start 11/17/18 at 10:30 Acetaminophen/ Hydrocodone Bitart ([place] (5/325)) 1 tab Q3H PRN PO MODERATE PAIN LEVEL 4-6; Start 11/17/18 at 14:30 Amlodipine Besylate (Norvasc) 5 mg BID GTB Last administered on 11/20/18 08:12; Admin Dose 5 MG; Start 11/18/18 at 09:00 Hydralazine HCl (Apresoline) 25 mg Q8 PO Last administered on 11/20/18 06:13; Admin Dose 25 MG; Start 11/18/18 at 06:00 Metoprolol Tartrate (Lopressor) 50 mg BID GTB Last administered on 11/20/18 08:13; Admin Dose 50 MG; Start 11/18/18 at 09:00 Albumin Human 50 ml @ 100 mls/hr WITH DIALYSIS PRN IV SBP<90; Start 11/18/18 at 14:30 Morphine Sulfate (morphine) 6 mg Q4H PRN PO SEVERE PAIN LEVEL 7-10; Start 11/18/18 at 23:00 Docusate Sodium (Colace Liquid Cup) 100 mg DAILY GTB Last administered on 11/20/18at 08:11; Admin Dose 100 MG; Start 11/19/18 at 09:30 SCOTT SHEEHAN Nov 20, 2018 13:41
[2018-11-20 14:00] VITALS: BP 137/57; PULSE 92; RESP 18
--- NOTE | 2018-11-20 14:16 | PN ---
Date/Time of Note Date/Time of Note DATE: 11/20/18 TIME: 14:15 Assessment/Plan VTE Prophylaxis Risk score (from Ns)>0 risk: 8 SCD applied (from [facility] [place]): Yes SCD contraindicated: low risk/ambulating Pharmacological prophylaxis: NA/contraindicated Pharm contraindication: low risk/ambulating (err) Assessment/Plan Hospital Course 1. Right hand swelling, likely secondary to hematoma, questionable fall. with compression s/p I and D on 11/17/18 2. Gastrointestinal bleed with melena. 3. Hypertension. 4. Diabetes. 5. End-stage renal disease on hemodialysis. 6. History of falls. 7. Vascular dementia. 8. History of sepsis with VRE. 9. Dysphagia, status post G-tube. 10. History of hip fracture. 11. Thrombocytopenia. 12. Atherosclerotic heart disease. Assessment/Plan Assessment/Plan - HDyestarday - EGD today - renally dose all meds - abx per ID Result Diagram: 11/20/18 0506 11/20/18 0506 Results 24hrs Laboratory Tests Test 11/19/18 18:10 11/20/18 05:06 11/20/18 08:10 Stool Occult Blood NEGATIVE White Blood Count 7.7 Red Blood Count 3.09 L Hemoglobin 8.6 L Hematocrit 26.4 L Mean Corpuscular Volume 85.4 Mean Corpuscular Hemoglobin 27.8 L Mean Corpuscular Hemoglobin Concent 32.6 Red Cell Distribution Width 16.2 H Platelet Count 171 Mean Platelet Volume 11.0 H Immature Granulocytes % 1.300 H Neutrophils % 71.4 Lymphocytes % 8.6 L Monocytes % 12.4 H Eosinophils % 5.9 Basophils % 0.4 Nucleated Red Blood Cells % 1.0 H Immature Granulocytes # 0.100 H Neutrophils # 5.5 Lymphocytes # 0.7 L Monocytes # 1.0 H Eosinophils # 0.5 Basophils # 0.0 Nucleated Red Blood Cells # 0.1 H Sodium Level 143 Potassium Level 3.4 L Chloride Level 104 Carbon Dioxide Level 31 Anion Gap 8 Blood Urea Nitrogen 17 # Creatinine 1.62 H Est Glomerular Filtrat Rate mL/min Glucose Level 139 # Calcium Level 8.3 L Phosphorus Level 1.5 #L Magnesium Level 2.2 Bedside Glucose 119 Exam/Review of Systems Vital Signs Vitals Vital Signs Date Temp Pulse Resp B/P (MAP) Pulse Ox O2 O2 Flow FiO2 Time Delivery Rate 11/20/18 98.0 98 17 143/53 96 Room Air 07:20 (83) 11/18/18 2.0 12:28 Intake and Output 11/19/18 11/19/18 11/20/18 1515:00 23:00 07:00 IntakeIntake Total 430 ml 412 ml 50 ml OutputOutput Total 240 ml 30 ml BalanceBalance 190 ml 382 ml 50 ml Medications Medications Current Medications IV Flush (NS 3 ml) 3 ml PER PROTOCOL IV ; Start 11/16/18 at 09:00 Ondansetron HCl (Zofran Inj) 4 mg Q6H PRN IV NAUSEA AND/OR VOMITING; Start 11/16/18 at 09:00 Acetaminophen (Tylenol Tab) 650 mg Q6H PRN PO PAIN LEVEL 1-3 OR FEVER Last administered on 11/19/18at 16:46; Admin Dose 650 MG; Start 11/16/18 at 09:00 Docusate Sodium (Colace) 100 mg Q12H PRN PO CONSTIPATION; Start 11/16/18 at 09:00 Magnesium Hydroxide (Milk Of Mag) 30 ml DAILY PRN PO CONSTIPATION; Start 11/16/18 at 09:00 Folic Acid (Folic Acid) 1 mg DAILY GTB Last administered on 11/20/18at 08:12; Admin Dose 1 MG; Start 11/16/18 at 09:00 Albuterol/ Ipratropium (Duoneb) 3 ml Q6 PRN HHN sob; Start 11/16/18 at 09:00 Lansoprazole (Prevacid) 30 mg QAM PO Last administered on 11/20/18at 08:12; Admin Dose 30 MG; Start 11/16/18 at 09:00 Linagliptin (Tradjenta) 5 mg DAILY GTB Last administered on 11/20/18 08:12; Admin Dose 5 MG; Start 11/16/18 at 09:00 Lorazepam (Ativan) 1 mg HS PRN GTB ANXIETY Last administered on 11/19/18at 22:23; Admin Dose 1 MG; Start 11/16/18 at 09:00 Quetiapine Fumarate (Seroquel) 25 mg BID GTB Last administered on 11/20/18 08:12; Admin Dose 25 MG; Start 11/16/18 at 09:00 Senna (Senokot) 1 tab BID PO Last administered on 11/20/18 08:13; Admin Dose 1 TAB; Start 11/16/18 at 09:00 Sevelamer Carbonate (Renvela) 0.8 gm WITH MEALS PO Last administered on 11/20/18 11:33; Admin Dose 0.8 GM; Start 11/16/18 at 11:30 Valproate Sodium (Depakene Liquid Cup) 250 mg Q8 PO Last administered on 11/20/18at 14:05; Admin Dose 250 MG; Start 11/16/18 at 14:00 Sodium Chloride (NS) -To prime the dialy... DIRECTED FOR HD PRN IV SBP<90; Start 11/16/18 at 15:00 Pantoprazole (Protonix Iv) 40 mg BID@06,18 IV Last administered on 11/20/18at 06:08; Admin Dose 40 MG; Start 11/17/18 at 18:00 Hydralazine HCl (Apresoline) 10 mg Q4H PRN IV ELEVATED BLOOD PRESSURE Last administered on 11/17/18at 14:57; Admin Dose 10 MG; Start 11/17/18 at 10:30 Acetaminophen/ Hydrocodone Bitart ([place] (5/325)) 1 tab Q3H PRN PO MODERATE PAIN LEVEL 4-6; Start 11/17/18 at 14:30 Amlodipine Besylate (Norvasc) 5 mg BID GTB Last administered on 11/20/18 08:12; Admin Dose 5 MG; Start 11/18/18 at 09:00 Hydralazine HCl (Apresoline) 25 mg Q8 PO Last administered on 11/20/18at 14:08; Admin Dose 25 MG; Start 11/18/18 at 06:00 Metoprolol Tartrate (Lopressor) 50 mg BID GTB Last administered on 11/20/18 08 :13; Admin Dose 50 MG; Start 11/18/18 at 09:00 Albumin Human 50 ml @ 100 mls/hr WITH DIALYSIS PRN IV SBP<90; Start 11/18/18 at 14:30 Morphine Sulfate (morphine) 6 mg Q4H PRN PO SEVERE PAIN LEVEL 7-10; Start 11/18/18 at 23:00 Docusate Sodium (Colace Liquid Cup) 100 mg DAILY GTB Last administered on 1/12/19at 08:11; Admin Dose 100 MG; Start 11/19/18 at 09:30 Guaifenesin/ Dextromethorphan (Robitussin Dm Liquid Cup) 5 ml Q4H PRN PO cough; Start 11/20/18 at 14:00 FLAVIO CLAYTON Nov 20, 2018 14:16
--- NOTE | 2018-11-20 14:19 | CONS ---
Date/Time of Note Date/Time of Note DATE: 11/20/18 TIME: 14:18 Assessment/Plan Assessment/Plan Hospital Course 1. Right hand swelling, likely secondary to hematoma, questionable fall. with compression s/p I and D on 11/17/18 2. Gastrointestinal bleed with melena. 3. Hypertension. 4. Diabetes. 5. End-stage renal disease on hemodialysis. 6. History of falls. 7. Vascular dementia. 8. History of sepsis with VRE. 9. Dysphagia, status post G-tube. 10. History of hip fracture. 11. Thrombocytopenia. 12. Atherosclerotic heart disease. Assessment/Plan - HD yestarday - EGD today - renally dose all meds - abx per ID Result Diagram: 11/20/18 0506 11/20/18 0506 Results 24hrs Laboratory Tests Test 11/19/18 18:10 11/20/18 05:06 11/20/18 08:10 Stool Occult Blood NEGATIVE White Blood Count 7.7 Red Blood Count 3.09 L Hemoglobin 8.6 L Hematocrit 26.4 L Mean Corpuscular Volume 85.4 Mean Corpuscular Hemoglobin 27.8 L Mean Corpuscular Hemoglobin Concent 32.6 Red Cell Distribution Width 16.2 H Platelet Count 171 Mean Platelet Volume 11.0 H Immature Granulocytes % 1.300 H Neutrophils % 71.4 Lymphocytes % 8.6 L Monocytes % 12.4 H Eosinophils % 5.9 Basophils % 0.4 Nucleated Red Blood Cells % 1.0 H Immature Granulocytes # 0.100 H Neutrophils # 5.5 Lymphocytes # 0.7 L Monocytes # 1.0 H Eosinophils # 0.5 Basophils # 0.0 Nucleated Red Blood Cells # 0.1 H Sodium Level 143 Potassium Level 3.4 L Chloride Level 104 Carbon Dioxide Level 31 Anion Gap 8 Blood Urea Nitrogen 17 # Creatinine 1.62 H Est Glomerular Filtrat Rate mL/min Glucose Level 139 # Calcium Level 8.3 L Phosphorus Level 1.5 #L Magnesium Level 2.2 Bedside Glucose 119 Consultation Date/Type/Reason Admit Date/Time Nov 16, 2018 at 05:51 Initial Consult Date 11/16/18 Type of Consult nephrology Requesting Provider: DYLON WALLS MD 24 HR Interval Summary Constitutional: disoriented Exam/Review of Systems Vital Signs Vitals Vital Signs Date Temp Pulse Resp B/P (MAP) Pulse Ox O2 O2 Flow FiO2 Time Delivery Rate 11/20/18 98.0 98 17 143/53 96 Room Air 07:20 (83) 11/18/18 2.0 12:28 Intake and Output 11/19/18 11/19/18 11/20/18 1515:00 23:00 07:00 IntakeIntake Total 430 ml 412 ml 50 ml OutputOutput Total 240 ml 30 ml BalanceBalance 190 ml 382 ml 50 ml Exam right chest Permcath Head: normocephalic Eyes: nl conjunctiva Respiratory: diminished breath sounds Cardiovascular: regular rate and rhythm Gastrointestinal: soft Medications Medications Current Medications IV Flush (NS 3 ml) 3 ml PER PROTOCOL IV ; Start 11/16/18 at 09:00 Ondansetron HCl (Zofran Inj) 4 mg Q6H PRN IV NAUSEA AND/OR VOMITING; Start 11/16/18 at 09:00 Acetaminophen (Tylenol Tab) 650 mg Q6H PRN PO PAIN LEVEL 1-3 OR FEVER Last administered on 11/19/18at 16:46; Admin Dose 650 MG; Start 11/16/18 at 09:00 Docusate Sodium (Colace) 100 mg Q12H PRN PO CONSTIPATION; Start 11/16/18 at 09:00 Magnesium Hydroxide (Milk Of Mag) 30 ml DAILY PRN PO CONSTIPATION; Start 11/16/18 at 09:00 Folic Acid (Folic Acid) 1 mg DAILY GTB Last administered on 11/20/18at 08:12; Admin Dose 1 MG; Start 11/16/18 at 09:00 Albuterol/ Ipratropium (Duoneb) 3 ml Q6 PRN HHN sob; Start 11/16/18 at 09:00 Lansoprazole (Prevacid) 30 mg QAM PO Last administered on 11/20/18at 08:12; Admin Dose 30 MG; Start 11/16/18 at 09:00 Linagliptin (Tradjenta) 5 mg DAILY GTB Last administered on 11/20/18at 08:12; Admin Dose 5 MG; Start 11/16/18 at 09:00 Lorazepam (Ativan) 1 mg HS PRN GTB ANXIETY Last administered on 11/19/18at 22:23; Admin Dose 1 MG; Start 11/16/18 at 09:00 Quetiapine Fumarate (Seroquel) 25 mg BID GTB Last administered on 11/20/18 08:12; Admin Dose 25 MG; Start 11/16/18 at 09:00 Senna (Senokot) 1 tab BID PO Last administered on 11/20/18 08:13; Admin Dose 1 TAB; Start 11/16/18 at 09:00 Sevelamer Carbonate (Renvela) 0.8 gm WITH MEALS PO Last administered on 11/20/18 11:33; Admin Dose 0.8 GM; Start 11/16/18 at 11:30 Valproate Sodium (Depakene Liquid Cup) 250 mg Q8 PO Last administered on 11/20/18 14:05; Admin Dose 250 MG; Start 11/16/18 at 14:00 Sodium Chloride (NS) -To prime the dialy... DIRECTED FOR HD PRN IV SBP<90; Start 11/16/18 at 15:00 Pantoprazole (Protonix Iv) 40 mg BID@06,18 IV Last administered on 11/20/18 06:08; Admin Dose 40 MG; Start 11/17/18 at 18:00 Hydralazine HCl (Apresoline) 10 mg Q4H PRN IV ELEVATED BLOOD PRESSURE Last administered on 11/17/18at 14:57; Admin Dose 10 MG; Start 11/17/18 at 10:30 Acetaminophen/ Hydrocodone Bitart ([place] (5/325)) 1 tab Q3H PRN PO MODERATE PAIN LEVEL 4-6; Start 11/17/18 at 14:30 Amlodipine Besylate (Norvasc) 5 mg BID GTB Last administered on 11/20/18 08:12; Admin Dose 5 MG; Start 11/18/18 at 09:00 Hydralazine HCl (Apresoline) 25 mg Q8 PO Last administered on 11/20/18 14:08; Admin Dose 25 MG; Start 11/18/18 at 06:00 Metoprolol Tartrate (Lopressor) 50 mg BID GTB Last administered on 11/20/18 08:13; Admin Dose 50 MG; Start 11/18/18 at 09:00 Albumin Human 50 ml @ 100 mls/hr WITH DIALYSIS PRN IV SBP<90; Start 11/18/18 at 14:30 Morphine Sulfate (morphine) 6 mg Q4H PRN PO SEVERE PAIN LEVEL 7-10; Start 11/18/18 at 23:00 Docusate Sodium (Colace Liquid Cup) 100 mg DAILY GTB Last administered on 11/20/18at 08:11; Admin Dose 100 MG; Start 11/19/18 at 09:30 Guaifenesin/ Dextromethorphan (Robitussin Dm Liquid Cup) 5 ml Q4H PRN PO cough; Start 11/20/18 at 14:00 FLAVIO CLAYTON Nov 20, 2018 14:18
--- NOTE | 2018-11-20 16:32 | PN ---
DATE: 11/20/2018 SUBJECTIVE: The patient seen lying in bed comfortably. She is now off the hand support brace after her surgery. The patient is comfortable. The patient has a 1:1 sitter. Noted labs today is patient with slight hypokalemia and hypophosphatemia. PHYSICAL EXAMINATION: VITAL SIGNS: Blood pressure is 123/53, pulse 98, respirations 18, temperature 98, saturation 96%. GENERAL: No acute distress. The patient is frail, pale. CARDIOVASCULAR: S1, S2, regular rate. LUNGS: Clear. ABDOMEN: Soft, nontender. EXTREMITIES: Right hand is banded, otherwise no edema throughout. LABORATORY DATA: White count is 7.7, hemoglobin 8.6, hematocrit 26, platelet count is 171, neutrophi ls 71%, lymphocytes 9%. Chemistry: Sodium 143, potassium 3.4, chloride 104, bicarbonate 31, BUN is 17, creatinine 1.62, and glucose of 139. Stool occult blood turned out to be negative. MEDICATIONS: Include: 1. Colace 100 daily. 2. Amlodipine 5 mg b.i.d. 3. Lopressor 50 b.i.d. 4. Hydralazine 25 q.8. 5. Protonix 40 IV b.i.d. 6. [place] p.r.n. 7. Hydralazine p.r.n. 8. Depakote 250 q.8. 9. Renvela with meals. 10. Zofran p.r.n. 11. Tylenol p.r.n. 12. Milk of magnesia p.r.n. 14. Folic acid 1 mg daily. 15. DuoNeb p.r.n. 16. Prevacid 10 mg daily. 17. Tradjenta 5 mg daily. 18. Ativan 1 mg at bedtime p.r.n. 19. Seroquel 25 b.i.d. 20. Senna 1 tab b.i.d. BLOOD CULTURES: MRSA screening negative. Wound culture from the wound was negative as well. ASSESSMENT AND PLAN: This is an 83-year-old [place] female with history of end-stage renal disease, COPD, vascular dementia, CVA, presented with GI bleed. Also, was found to have a right hand and wri st swelling consistent with hematoma. 1. Right hematoma, status post evacuation. Cultures are negative. Now off antibiotics. I apprecia te also ID input. 2. Anemia. H and H overall stable. No need for transfusion. May benefit from Epogen. No evidence of GI bleed as stool occult blood is negative. 3. End-stage renal disease, dialysis 3 times a week. 4. Mild cough. Continue aspiration precautions. Robitussin p.r.n. for cough. 5. Malnutrition and dysphagia. Continue G-tube feeding, bolus feedings and p.r.n. pureed diet for o ral gratification. 6. Hypertension. Continue above. Blood pressure is overall controlled. 7. Psychiatric disorder. Resume all psych medications. The patient with 1:1 sitter. 8. Clinically improving. DISPOSITION: Soon back to nursing home facility. We will follow. Dictated By: DYLON HULL/MADAN Conf#: [id number] DID#: [id number]
[2018-11-20] MEDS ORDERED: POTASSIUM CHLORIDE 20 MEQ POWDER FOR ORAL SOLN GTB ONE (17:30)
[2018-11-20] MEDS ORDERED: POTASSIUM CHLORIDE (SR) 8 MEQ CAP PO ONE (17:30)
[2018-11-20] MEDS: GUAIFENESIN/DM 5ML CUP PO PRN (17:33)
[2018-11-20 20:00] VITALS: BP 148/68; PULSE 104; RESP 18
[2018-11-20] MEDS: LORAZEPAM 1 MG TAB GTB PRN (22:11)
[2018-11-21 02:00] VITALS: BP 165/71; PULSE 89; RESP 18
[2018-11-21] MEDS: morphine LIQ (10 MG/5 ML) CUP PO PRN ×2 (06:07→21:45)
[2018-11-21] MEDS: PANTOPRAZOLE 40 MG INJ IV SCH (06:10)
[2018-11-21] MEDS: VALPROIC ACID LIQUID CUP 250 MG/5 ML CUP PO SCH ×3 (06:10→20:37)
[2018-11-21 09:35] VITALS: BP 136/56; PULSE 86; RESP 18
[2018-11-21] MEDS: DOCUSATE SODIUM 10 MG/ML (10ML CUP) GTB SCH (09:37)
[2018-11-21] MEDS: SEVELAMER CARBONATE 0.8 GM PKT PO SCH ×3 (09:37→17:35)
[2018-11-21] MEDS: LANSOPRAZOLE 30 MG CAP PO SCH (09:38)
[2018-11-21] MEDS: QUETIAPINE 25 MG TAB GTB SCH ×2 (09:38→20:37)
[2018-11-21] MEDS: SENNA TAB PO SCH ×2 (09:38→20:37)
[2018-11-21] MEDS: LINAGLIPTIN 5 MG TABLET GTB SCH (09:38)
[2018-11-21] MEDS: METOPROLOL 50 MG TAB GTB SCH ×2 (09:38→20:40)
[2018-11-21] MEDS: FOLIC ACID 1 MG TAB GTB SCH (09:38)
[2018-11-21] MEDS: AMLODIPINE 5 MG TAB GTB SCH ×2 (09:39→20:40)
--- NOTE | 2018-11-21 12:35 | CONS ---
Date/Time of Note Date/Time of Note DATE: 11/21/18 TIME: 12:33 Assessment/Plan Assessment/Plan Result Diagram: 11/20/18 0506 11/21/18 0511 Results 24hrs Laboratory Tests Test 11/21/18 05:11 Sodium Level 142 Potassium Level 3.6 Chloride Level 106 Carbon Dioxide Level 29 Anion Gap 7 Blood Urea Nitrogen 32 #H Creatinine 2.12 H Est Glomerular Filtrat Rate mL/min Glucose Level 115 Calcium Level 8.7 Consultation Date/Type/Reason Admit Date/Time Nov 16, 2018 at 05:51 Initial Consult Date SUBJECTIVE: Patient is awake, alert, afebrile. no acute events over night. VS: stable. T: 98.2 LABS: reviewed. Microbiology: Intraoperative cultures preliminary negative Antimicrobials: S/P Vanco, Zosyn Indwelling: Left chest permacath, PEG PHYSICAL EXAM: GEN: Chronically ill-appearing elderly woman who is awake, confused, in no distress. HENT: Head atraumatic normocephalic. Neck is supple. PULM: Chest rise symmetrical breath sounds diminished bases. Heart: S1-S2. Abdomen soft bowel sounds present Extremities without R FA edema/erythema Assessment: 1. Right hand hematoma, status post I&D 11/17/18 2. Status post VRE bacteremia, status post new Pcath 3. End-stage renal disease, hemodialysis dependent 4. Dementia 5. Failure to thrive 6. Diabetes 8. Anemia Plan: Patient remains stable. Continue to monitor off of antbx. Requesting Provider: DYLON WALLS MD Exam/Review of Systems Vital Signs Vitals Vital Signs Date Temp Pulse Resp B/P (MAP) Pulse Ox O2 O2 Flow FiO2 Time Delivery Rate 11/21/18 98.2 86 18 136/56 96 09:35 (82) 11/20/18 Room Air 14:00 11/18/18 2.0 12:28 Intake and Output 11/20/18 11/20/18 11/21/18 1414:59 22:59 06:59 IntakeIntake Total 70 ml 920 ml 20 ml BalanceBalance 70 ml 920 ml 20 ml Medications Medications Current Medications IV Flush (NS 3 ml) 3 ml PER PROTOCOL IV ; Start 11/16/18 at 09:00 Ondansetron HCl (Zofran Inj) 4 mg Q6H PRN IV NAUSEA AND/OR VOMITING; Start 11/16/18 at 09:00 Acetaminophen (Tylenol Tab) 650 mg Q6H PRN PO PAIN LEVEL 1-3 OR FEVER Last administered on 11/19/18 16:46; Admin Dose 650 MG; Start 11/16/18 at 09:00 Docusate Sodium (Colace) 100 mg Q12H PRN PO CONSTIPATION; Start 11/16/18 at 09:00 Magnesium Hydroxide (Milk Of Mag) 30 ml DAILY PRN PO CONSTIPATION; Start 11/16/18 at 09:00 Folic Acid (Folic Acid) 1 mg DAILY GTB Last administered on 11/21/18 09:38; Admin Dose 1 MG; Start 11/16/18 at 09:00 Albuterol/ Ipratropium (Duoneb) 3 ml Q6 PRN HHN sob; Start 11/16/18 at 09:00 Lansoprazole (Prevacid) 30 mg QAM PO Last administered on 11/21/18 09:38; Admin Dose 30 MG; Start 11/16/18 at 09:00 Linagliptin (Tradjenta) 5 mg DAILY GTB Last administered on 11/21/18 09:38; Admin Dose 5 MG; Start 11/16/18 at 09:00 Lorazepam (Ativan) 1 mg HS PRN GTB ANXIETY Last administered on 11/20/18 22:11; Admin Dose 1 MG; Start 11/16/18 at 09:00 Quetiapine Fumarate (Seroquel) 25 mg BID GTB Last administered on 11/21/18 09:38; Admin Dose 25 MG; Start 11/16/18 at 09:00 Senna (Senokot) 1 tab BID PO Last administered on 11/21/18 09:38; Admin Dose 1 TAB; Start 11/16/18 at 09:00 Sevelamer Carbonate (Renvela) 0.8 gm WITH MEALS PO Last administered on 11/21/18 12:25; Admin Dose 0.8 GM; Start 11/16/18 at 11:30 Valproate Sodium (Depakene Liquid Cup) 250 mg Q8 PO Last administered on 11/21/18 06:10; Admin Dose 250 MG; Start 11/16/18 at 14:00 Sodium Chloride (NS) -To prime the dialy... DIRECTED FOR HD PRN IV SBP<90; Start 11/16/18 at 15:00 Pantoprazole (Protonix Iv) 40 mg BID@06,18 IV Last administered on 11/21/18 06:10; Admin Dose 40 MG; Start 11/17/18 at 18:00 Hydralazine HCl (Apresoline) 10 mg Q4H PRN IV ELEVATED BLOOD PRESSURE Last administered on 11/17/18 14:57; Admin Dose 10 MG; Start 11/17/18 at 10:30 Acetaminophen/ Hydrocodone Bitart ([place] (5/325)) 1 tab Q3H PRN PO MODERATE PAIN LEVEL 4-6; Start 11/17/18 at 14:30 Amlodipine Besylate (Norvasc) 5 mg BID GTB Last administered on 11/21/18 09:39; Admin Dose 5 MG; Start 11/18/18 at 09:00 Hydralazine HCl (Apresoline) 25 mg Q8 PO Last administered on 11/21/18 06:10; Admin Dose 25 MG; Start 11/18/18 at 06:00 Metoprolol Tartrate (Lopressor) 50 mg BID GTB Last administered on 11/21/18 09:38; Admin Dose 50 MG; Start 11/18/18 at 09:00 Albumin Human 50 ml @ 100 mls/hr WITH DIALYSIS PRN IV SBP<90; Start 11/18/18 at 14:30 Morphine Sulfate (morphine) 6 mg Q4H PRN PO SEVERE PAIN LEVEL 7-10 Last administered on 11/21/18 06:07; Admin Dose 6 MG; Start 11/18/18 at 23:00 Docusate Sodium (Colace Liquid Cup) 100 mg DAILY GTB Last administered on 11/21/18 09:37; Admin Dose 100 MG; Start 11/19/18 at 09:30 Guaifenesin/ Dextromethorphan (Robitussin Dm Liquid Cup) 5 ml Q4H PRN PO cough Last administered on 11/20/18 17:33; Admin Dose 5 ML; Start 11/20/18 at 14:00 SCOTT SHEEHAN Nov 21, 2018 12:35
--- NOTE | 2018-11-21 13:45 | CONS ---
Date/Time of Note Date/Time of Note DATE: 11/21/18 TIME: 13:44 Assessment/Plan Assessment/Plan Hospital Course 1. Right hand swelling, likely secondary to hematoma, questionable fall. with compression s/p I and D on 11/17/18 2. Gastrointestinal bleed with melena. 3. Hypertension. 4. Diabetes. 5. End-stage renal disease on hemodialysis. 6. History of falls. 7. Vascular dementia. 8. History of sepsis with VRE. 9. Dysphagia, status post G-tube. 10. History of hip fracture. 11. Thrombocytopenia. 12. Atherosclerotic heart disease. plan hd tomorrow Result Diagram: 11/20/18 0506 11/21/18 0511 Results 24hrs Laboratory Tests Test 11/21/18 05:11 Sodium Level 142 Potassium Level 3.6 Chloride Level 106 Carbon Dioxide Level 29 Anion Gap 7 Blood Urea Nitrogen 32 #H Creatinine 2.12 H Est Glomerular Filtrat Rate mL/min Glucose Level 115 Calcium Level 8.7 Consultation Date/Type/Reason Admit Date/Time Nov 16, 2018 at 05:51 Initial Consult Date 11/16/18 Type of Consult no sob resting Requesting Provider: DYLON WALLS MD Exam/Review of Systems Vital Signs Vitals Vital Signs Date Temp Pulse Resp B/P (MAP) Pulse Ox O2 O2 Flow FiO2 Time Delivery Rate 11/21/18 98.2 86 18 136/56 96 09:35 (82) 11/20/18 Room Air 14:00 11/18/18 2.0 12:28 Intake and Output 11/20/18 11/20/18 11/21/18 1515:00 23:00 07:00 IntakeIntake Total 70 ml 920 ml 20 ml BalanceBalance 70 ml 920 ml 20 ml Exam Neck: supple Respiratory: clear to auscultation Cardiovascular: regular rate and rhythm Gastrointestinal: soft, bowel sounds (+) Extremities: No edema Medications Medications Current Medications IV Flush (NS 3 ml) 3 ml PER PROTOCOL IV ; Start 11/16/18 at 09:00 Ondansetron HCl (Zofran Inj) 4 mg Q6H PRN IV NAUSEA AND/OR VOMITING; Start 11/16/18 at 09:00 Acetaminophen (Tylenol Tab) 650 mg Q6H PRN PO PAIN LEVEL 1-3 OR FEVER Last administered on 11/19/18at 16:46; Admin Dose 650 MG; Start 11/16/18 at 09:00 Docusate Sodium (Colace) 100 mg Q12H PRN PO CONSTIPATION; Start 11/16/18 at 09:00 Magnesium Hydroxide (Milk Of Mag) 30 ml DAILY PRN PO CONSTIPATION; Start 11/16/18 at 09:00 Folic Acid (Folic Acid) 1 mg DAILY GTB Last administered on 11/21/18 09:38; Admin Dose 1 MG; Start 11/16/18 at 09:00 Albuterol/ Ipratropium (Duoneb) 3 ml Q6 PRN HHN sob; Start 11/16/18 at 09:00 Lansoprazole (Prevacid) 30 mg QAM PO Last administered on 11/21/18 09:38; Admin Dose 30 MG; Start 11/16/18 at 09:00 Linagliptin (Tradjenta) 5 mg DAILY GTB Last administered on 11/21/18 09:38; Admin Dose 5 MG; Start 11/16/18 at 09:00 Lorazepam (Ativan) 1 mg HS PRN GTB ANXIETY Last administered on 11/20/18 22:11; Admin Dose 1 MG; Start 11/16/18 at 09:00 Quetiapine Fumarate (Seroquel) 25 mg BID GTB Last administered on 11/21/18 09:38; Admin Dose 25 MG; Start 11/16/18 at 09:00 Senna (Senokot) 1 tab BID PO Last administered on 11/21/18 09:38; Admin Dose 1 TAB; Start 11/16/18 at 09:00 Sevelamer Carbonate (Renvela) 0.8 gm WITH MEALS PO Last administered on 11/21/18 12:25; Admin Dose 0.8 GM; Start 11/16/18 at 11:30 Valproate Sodium (Depakene Liquid Cup) 250 mg Q8 PO Last administered on 11/21/18 06:10; Admin Dose 250 MG; Start 11/16/18 at 14:00 Sodium Chloride (NS) -To prime the dialy... DIRECTED FOR HD PRN IV SBP<90; Start 11/16/18 at 15:00 Pantoprazole (Protonix Iv) 40 mg BID@,18 IV Last administered on 11/21/18 06:10; Admin Dose 40 MG; Start 11/17/18 at 18:00 Hydralazine HCl (Apresoline) 10 mg Q4H PRN IV ELEVATED BLOOD PRESSURE Last administered on 11/17/18at 14:57; Admin Dose 10 MG; Start 11/17/18 at 10:30 Acetaminophen/ Hydrocodone Bitart ([place] (5/325)) 1 tab Q3H PRN PO MODERATE PAIN LEVEL 4-6; Start 11/17/18 at 14:30 Amlodipine Besylate (Norvasc) 5 mg BID GTB Last administered on 11/21/18at 09:39; Admin Dose 5 MG; Start 11/18/18 at 09:00 Hydralazine HCl (Apresoline) 25 mg Q8 PO Last administered on 11/21/18 06:10; Admin Dose 25 MG; Start 11/18/18 at 06:00 Metoprolol Tartrate (Lopressor) 50 mg BID GTB Last administered on 11/21/18 09:38; Admin Dose 50 MG; Start 11/18/18 at 09:00 Albumin Human 50 ml @ 100 mls/hr WITH DIALYSIS PRN IV SBP<90; Start 11/18/18 at 14:30 Morphine Sulfate (morphine) 6 mg Q4H PRN PO SEVERE PAIN LEVEL 7-10 Last administered on 11/21/18 06:07; Admin Dose 6 MG; Start 11/18/18 at 23:00 Docusate Sodium (Colace Liquid Cup) 100 mg DAILY GTB Last administered on 11/21/18 09:37; Admin Dose 100 MG; Start 11/19/18 at 09:30 Guaifenesin/ Dextromethorphan (Robitussin Dm Liquid Cup) 5 ml Q4H PRN PO cough Last administered on 11/20/18 17:33; Admin Dose 5 ML; Start 11/20/18 at 14:00 GEOFF KATHLEEN MD Nov 21, 2018 13:45
[2018-11-21 14:00] VITALS: BP 140/65; PULSE 86; RESP 18
--- NOTE | 2018-11-21 15:50 | PN ---
DATE: 11/21/2018 SUBJECTIVE: The patient seen. The patient slept most of the day, but I did see that she got a dose of oral morphine early this morning. PHYSICAL EXAMINATION: VITAL SIGNS: Temperature 98.3, pulse 86, respiration 18, blood pressure 140/65, saturation 96%. GENERAL: The patient is frail, sleeping. CARDIOVASCULAR: S1, S2. LUNGS: Decreased bilaterally. ABDOMEN: Soft, nontender. EXTREMITIES: Right hand is banded. The left knuckles had some swelling. LABORATORY DATA: Sodium 142, potassium 3.6, chloride 106, bicarbonate 29, BUN 32, creatinine 2.12, a nd glucose 115. CBC not done today. Last hemoglobin 8.6 yesterday. MEDICATIONS: All reviewed and include: 1. Robitussin. 2. Colace. 3. Morphine. 4. Albumin. 5. Norvasc. 6. Lopressor. 7. Hydralazine. 8. Protonix. 9. ____ 10. Depakote 11. Renvela. 12. Zofran. 13. Tylenol. 14. Milk of magnesia. 15. Folic acid. 16. DuoNeb. 17. Prevacid. 18. Tradjenta. 19. Ativan 20. Seroquel. 21. Senna. ASSESSMENT AND PLAN: This is an 83-year-old [place] female with history of end-stage renal disease, chronic obstructive pulmonary disease, vascular dementia, cerebrovascular accident who presented wit h gastrointestinal bleed. Also, was found to have right hand and wrist swelling. Continue with ruiz jennifer. 1. Right hematoma status post evacuation. Continue wound care. Hemoglobin and hematocrit have been stable. 2. Anemia. H and H again is stable. Questionable gastrointestinal bleed, but stool occult blood is negative. Continue proton pump inhibitor. May benefit from Epogen. Transfuse p.r.n. Follow up CB C tomorrow. 3. End-stage renal disease. Next dialysis is due for tomorrow on Thursday. 4. Mild cough, resolved. 5. Malnutrition and dysphagia. Continue G-tube feeding. The patient is not eating much by mouth. 6. Hypertension. Continue all meds. 7. Psychiatric disorder, on multiple psych meds and 1:1 sitter. PLAN: Plan is for discharge tomorrow after dialysis. We will follow. Dictated By: DYLON HULL/MADAN Conf#: [id number] DID#: [id number]
--- NOTE | 2018-11-21 17:00 | CONS ---
Date/Time of Note Date/Time of Note DATE: 11/21/18 TIME: 17:00 Assessment/Plan Assessment/Plan Assessment/Plan Hospital Course 83 yo female in ESRD on HD presents for melena and anemia and also found to have edematous Rt hand/wrist 1. UGIB manifested through melena and anemia 2. Anemia, acute on chronic -Hgb 6.8->10.6->9.2->8.3 -No evidence of active GI bleeding, consider etiology of blood loss anemia to be from hematoma in hand -s/p 2 units with HD on 11/17 3. ESRD on HD -receiving HD currently 4. Hematoma of Rt hand and wrist -I and D drainage by Dr. Dean 11/17 5. Dysphagia -on tube feeds and pureed nectar for oral gratification 6. DM2 7. HTN 8. H/O diastolic dysfunction heart failure 9. S/P EGD 11/18 10. Moderate gastritis with no bleeding noted. 11. Confusion Plan: Anemia work up Re start Novasource bolus TID Monitor HH closely and for active GI bleeding Discussed with the daughter there is no further bleeding and patient is tolerating feeding Result Diagram: 11/20/18 0506 11/21/18 0511 Results 24hrs Laboratory Tests Test 11/21/18 05:11 Sodium Level 142 Potassium Level 3.6 Chloride Level 106 Carbon Dioxide Level 29 Anion Gap 7 Blood Urea Nitrogen 32 #H Creatinine 2.12 H Est Glomerular Filtrat Rate mL/min Glucose Level 115 Calcium Level 8.7 Consultation Date/Type/Reason Admit Date/Time Nov 16, 2018 at 05:51 Initial Consult Date 11/16/18 Requesting Provider: DYLON WALLS MD 24 HR Interval Summary Constitutional: no complaints Exam/Review of Systems Vital Signs Vitals Vital Signs Date Temp Pulse Resp B/P (MAP) Pulse Ox O2 O2 Flow FiO2 Time Delivery Rate 11/21/18 98.3 86 18 140/65 96 14:00 (90) 11/20/18 Room Air 14:00 11/18/18 2.0 12:28 Intake and Output 11/20/18 11/20/18 11/21/18 1515:00 23:00 07:00 IntakeIntake Total 70 ml 920 ml 20 ml BalanceBalance 70 ml 920 ml 20 ml Exam Constitutional: alert, oriented, well developed Psych: no complaints, nl mood/affect Head: normocephalic, atraumatic Eyes: nl conjunctiva, EOMI, nl lids, nl sclera, PERRL ENMT: nl external ears & nose, nl lips & teeth, nl nasal mucosa & septum Neck: supple, non-tender Respiratory: clear to auscultation, normal air movement Cardiovascular: regular rate and rhythm, nl pulses Gastrointestinal: soft, nl liver, spleen, non-tender Musculoskeletal: nl extremities to inspection, nl gait and stance Extremities: normal pulses 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: TASSEL SNIPPER II-XII intact, nl mental status, nl speech, nl strength Skin: nl turgor; No rash or lesions Lymph: nl lymph nodes Medications Medications Current Medications IV Flush (NS 3 ml) 3 ml PER PROTOCOL IV ; Start 11/16/18 at 09:00 Ondansetron HCl (Zofran Inj) 4 mg Q6H PRN IV NAUSEA AND/OR VOMITING; Start 11/16/18 at 09:00 Acetaminophen (Tylenol Tab) 650 mg Q6H PRN PO PAIN LEVEL 1-3 OR FEVER Last administered on 11/19/18at 16:46; Admin Dose 650 MG; Start 11/16/18 at 09:00 Docusate Sodium (Colace) 100 mg Q12H PRN PO CONSTIPATION; Start 11/16/18 at 09:00 Magnesium Hydroxide (Milk Of Mag) 30 ml DAILY PRN PO CONSTIPATION; Start 11/16/18 at 09:00 Folic Acid (Folic Acid) 1 mg DAILY GTB Last administered on 11/21/18at 09:38; Admin Dose 1 MG; Start 11/16/18 at 09:00 Albuterol/ Ipratropium (Duoneb) 3 ml Q6 PRN HHN sob; Start 11/16/18 at 09:00 Linagliptin (Tradjenta) 5 mg DAILY GTB Last administered on 11/21/18at 09:38; Admin Dose 5 MG; Start 11/16/18 at 09:00 Lorazepam (Ativan) 1 mg HS PRN GTB ANXIETY Last administered on 11/20/18at 22:11; Admin Dose 1 MG; Start 11/16/18 at 09:00 Quetiapine Fumarate (Seroquel) 25 mg BID GTB Last administered on 11/21/18at 09:38; Admin Dose 25 MG; Start 11/16/18 at 09:00 Senna (Senokot) 1 tab BID PO Last administered on 11/21/18 09:38; Admin Dose 1 TAB; Start 11/16/18 at 09:00 Sevelamer Carbonate (Renvela) 0.8 gm WITH MEALS PO Last administered on 11/21/18 12:25; Admin Dose 0.8 GM; Start 11/16/18 at 11:30 Valproate Sodium (Depakene Liquid Cup) 250 mg Q8 PO Last administered on 11/21/18 15:17; Admin Dose 250 MG; Start 11/16/18 at 14:00 Sodium Chloride (NS) -To prime the dialy... DIRECTED FOR HD PRN IV SBP<90; Start 11/16/18 at 15:00 Hydralazine HCl (Apresoline) 10 mg Q4H PRN IV ELEVATED BLOOD PRESSURE Last administered on 11/17/18at 14:57; Admin Dose 10 MG; Start 11/17/18 at 10:30 Acetaminophen/ Hydrocodone Bitart ([place] (5/325)) 1 tab Q3H PRN PO MODERATE PAIN LEVEL 4-6; Start 11/17/18 at 14:30 Amlodipine Besylate (Norvasc) 5 mg BID GTB Last administered on 11/21/18 09:39; Admin Dose 5 MG; Start 11/18/18 at 09:00 Hydralazine HCl (Apresoline) 25 mg Q8 PO Last administered on 11/21/18 15:17; Admin Dose 25 MG; Start 11/18/18 at 06:00 Metoprolol Tartrate (Lopressor) 50 mg BID GTB Last administered on 11/21/18 09:38; Admin Dose 50 MG; Start 11/18/18 at 09:00 Albumin Human 50 ml @ 100 mls/hr WITH DIALYSIS PRN IV SBP<90; Start 11/18/18 at 14:30 Morphine Sulfate (morphine) 6 mg Q4H PRN PO SEVERE PAIN LEVEL 7-10 Last administered on 11/21/18 06:07; Admin Dose 6 MG; Start 11/18/18 at 23:00 Docusate Sodium (Colace Liquid Cup) 100 mg DAILY GTB Last administered on 11/21/18 09:37; Admin Dose 100 MG; Start 11/19/18 at 09:30 Guaifenesin/ Dextromethorphan (Robitussin Dm Liquid Cup) 5 ml Q4H PRN PO cough Last administered on 11/20/18at 17:33; Admin Dose 5 ML; Start 11/20/18 at 14:00 Lansoprazole (Prevacid) 30 mg BID@0600,1800 GTB ; Start 11/21/18 at 18:00 CHRISS WELCH MD Nov 21, 2018 17:00
[2018-11-21] MEDS: LANSOPRAZOLE 30 MG CAP GTB SCH (18:45)
[2018-11-21 20:00] VITALS: BP 120/59; PULSE 100; RESP 19
[2018-11-22] VITALS (19 sets, daily range): BP systolic 80–153; BP diastolic 52–105; PULSE 81–112; RESP 17–20
[2018-11-22] MEDS: morphine LIQ (10 MG/5 ML) CUP PO PRN (02:16)
[2018-11-22] MEDS: LANSOPRAZOLE 30 MG CAP GTB SCH ×2 (05:25→17:07)
[2018-11-22] MEDS: VALPROIC ACID LIQUID CUP 250 MG/5 ML CUP PO SCH ×3 (05:25→21:29)
--- NOTE | 2018-11-22 07:02 | PN ---
Date/Time of Note Date/Time of Note DATE: 11/22/18 TIME: 07:00 Assessment/Plan VTE Prophylaxis Risk score (from Nsg)>0 risk: 6 SCD applied (from Nsg): Yes Pharmacological prophylaxis: NA/contraindicated Pharm contraindication: bleeding Lines/Catheters IV Catheter Type (from Nrsg): Saline Lock Urinary Cath still in place: No Assessment/Plan Hospital Course 83 yo female in ESRD on HD presents for melena and anemia and also found to have edematous Rt hand/wrist 1. UGIB manifested through melena and anemia -no melena noted or GI bleeding noted by nursing staff 2. Anemia, acute on chronic, acute likely due to blood loss in rt hand -Hgb 6.8->10.6->9.2->8.3 -No evidence of active GI bleeding, consider etiology of blood loss anemia to be from hematoma in hand -s/p 2 units with HD on 11/17 -Fe wnl, TIBC low, Ferritin, folate, b12 high, FOB neg 3. ESRD on HD -receiving HD currently 4. Hematoma of Rt hand and wrist -I and D drainage by Dr. Dean 11/17 5. Dysphagia -on tube feeds and pureed nectar for oral gratification 6. DM2 7. HTN 8. H/O diastolic dysfunction heart failure 9. S/P EGD 11/18 10. Moderate gastritis with no bleeding noted. Gastric biopsy results: Stomach, biopsy: -- Antral and oxyntic mucosa showing minimal plasma cell infiltration and small focus of intestinal metaplasia. -- No Helicobacter pylori is identified in Giemsa stain (positive control concurrently reviewed). -- No evidence of dysplasia or malignancy. Plan: Re start Novasource bolus TID Monitor HH closely and for active GI bleeding PPI BID Pt examined and plan of care discussed with Dr. Baird Result Diagram: 11/22/1842611/22/18426 Results 24hrs Laboratory Tests Test 11/22/18 04:27 White Blood Count 11.8 #H Red Blood Count 3.02 L Hemoglobin 8.4 L Hematocrit 26.4 L Mean Corpuscular Volume 87.4 Mean Corpuscular Hemoglobin 27.8 L Mean Corpuscular Hemoglobin Concent 31.8 L Red Cell Distribution Width 16.5 H Platelet Count 195 Mean Platelet Volume 10.7 H Immature Granulocytes % 1.000 H Neutrophils % 72.1 Lymphocytes % 11.3 L Monocytes % 10.5 Eosinophils % 4.8 Basophils % 0.3 Nucleated Red Blood Cells % 0.6 H Immature Granulocytes # 0.120 H Neutrophils # 8.5 H Lymphocytes # 1.3 Monocytes # 1.2 H Eosinophils # 0.6 H Basophils # 0.0 Nucleated Red Blood Cells # 0.1 H Sodium Level 144 Potassium Level 3.8 Chloride Level 107 Carbon Dioxide Level 30 Anion Gap 7 Blood Urea Nitrogen 43 #H Creatinine 2.43 H Est Glomerular Filtrat Rate mL/min Glucose Level 119 Calcium Level 8.7 Phosphorus Level 2.8 Magnesium Level 2.5 Subjective 24 Hr Interval Summary Free Text/Dictation no evidence of GI bleeding. No N/V. Bm have brown. formed. Exam/Review of Systems Vital Signs Vitals Vital Signs Date Temp Pulse Resp B/P (MAP) Pulse Ox O2 O2 Flow FiO2 Time Delivery Rate 11/22/18 98.6 97 20 153/62 98 Room Air 02:13 (92) 11/18/18 2.0 12:28 Intake and Output 11/21/18 11/21/18 11/22/18 1515:00 23:00 07:00 IntakeIntake Total 270 ml 240 ml BalanceBalance 270 ml 240 ml Exam Constitutional: alert Psych: no complaints Head: normocephalic Eyes: nl sclera, PERRL ENMT: mucosa pink and moist Respiratory: clear to auscultation Cardiovascular: regular rate and rhythm Gastrointestinal: soft, non-tender Extremities: other (RUE gauze bandage around hand, echymosis) Skin: ecchymosis Medications Medications Current Medications IV Flush (NS 3 ml) 3 ml PER PROTOCOL IV ; Start 11/16/18 at 09:00 Ondansetron HCl (Zofran Inj) 4 mg Q6H PRN IV NAUSEA AND/OR VOMITING; Start 11/16/18 at 09:00 Acetaminophen (Tylenol Tab) 650 mg Q6H PRN PO PAIN LEVEL 1-3 OR FEVER Last administered on 11/19/18at 16:46; Admin Dose 650 MG; Start 11/16/18 at 09:00 Docusate Sodium (Colace) 100 mg Q12H PRN PO CONSTIPATION; Start 11/16/18 at 09 :00 Magnesium Hydroxide (Milk Of Mag) 30 ml DAILY PRN PO CONSTIPATION; Start 11/16/18 at 09:00 Folic Acid (Folic Acid) 1 mg DAILY GTB Last administered on 11/21/18 09:38; Admin Dose 1 MG; Start 11/16/18 at 09:00 Albuterol/ Ipratropium (Duoneb) 3 ml Q6 PRN HHN sob; Start 11/16/18 at 09:00 Linagliptin (Tradjenta) 5 mg DAILY GTB Last administered on 11/21/18 09:38; Admin Dose 5 MG; Start 11/16/18 at 09:00 Lorazepam (Ativan) 1 mg HS PRN GTB ANXIETY Last administered on 11/20/18 22:11; Admin Dose 1 MG; Start 11/16/18 at 09:00 Quetiapine Fumarate (Seroquel) 25 mg BID GTB Last administered on 11/21/18 20:37; Admin Dose 25 MG; Start 11/16/18 at 09:00 Senna (Senokot) 1 tab BID PO Last administered on 11/21/18 20:37; Admin Dose 1 TAB; Start 11/16/18 at 09:00 Sevelamer Carbonate (Renvela) 0.8 gm WITH MEALS PO Last administered on 11/21/18 12:25; Admin Dose 0.8 GM; Start 11/16/18 at 11:30 Valproate Sodium (Depakene Liquid Cup) 250 mg Q8 PO Last administered on 11/22/18 05:25; Admin Dose 250 MG; Start 11/16/18 at 14:00 Sodium Chloride (NS) -To prime the dialy... DIRECTED FOR HD PRN IV SBP<90; Start 11/16/18 at 15:00 Hydralazine HCl (Apresoline) 10 mg Q4H PRN IV ELEVATED BLOOD PRESSURE Last administered on 11/17/18 14:57; Admin Dose 10 MG; Start 11/17/18 at 10:30 Acetaminophen/ Hydrocodone Bitart ([place] (5/325)) 1 tab Q3H PRN PO MODERATE PAIN LEVEL 4-6; Start 11/17/18 at 14:30 Amlodipine Besylate (Norvasc) 5 mg BID GTB Last administered on 11/21/18 20:40; Admin Dose 5 MG; Start 11/18/18 at 09:00 Hydralazine HCl (Apresoline) 25 mg Q8 PO Last administered on 11/22/18 05:26; Admin Dose 25 MG; Start 11/18/18 at 06:00 Metoprolol Tartrate (Lopressor) 50 mg BID GTB Last administered on 11/21/18at 20:40; Admin Dose 50 MG; Start 11/18/18 at 09:00 Albumin Human 50 ml @ 100 mls/hr WITH DIALYSIS PRN IV SBP<90; Start 11/18/18 at 14:30 Morphine Sulfate (morphine) 6 mg Q4H PRN PO SEVERE PAIN LEVEL 7-10 Last administered on 11/22/18at 02:16; Admin Dose 6 MG; Start 11/18/18 at 23:00 Docusate Sodium (Colace Liquid Cup) 100 mg DAILY GTB Last administered on 11/21/18at 09:37; Admin Dose 100 MG; Start 11/19/18 at 09:30 Guaifenesin/ Dextromethorphan (Robitussin Dm Liquid Cup) 5 ml Q4H PRN PO cough Last administered on 11/20/18at 17:33; Admin Dose 5 ML; Start 11/20/18 at 14:00 Lansoprazole (Prevacid) 30 mg BID@0600,1800 GTB Last administered on 11/22/18 05:25; Admin Dose 30 MG; Start 11/21/18 at 18:00 TONY VENCES Nov 22, 2018 07:02
--- NOTE | 2018-11-22 07:53 | PN ---
DATE: 11/19/2018 Second postop day. Considerable reduction in swelling. Guido-Tran tube was removed and new dress ings were applied. She can be discharged any time from orthopedics point. Need to be seen by orthop edics in 1 week for followup care. Dictated By: CESARIO RIVERA MD IK/NTS Conf#: [id number] DID#: [id number] CC: DYLON WALLS MD; CHRISS WELCH MD;*EndCC*
[2018-11-22] MEDS: LINAGLIPTIN 5 MG TABLET GTB SCH (08:25)
[2018-11-22] MEDS: SEVELAMER CARBONATE 0.8 GM PKT PO SCH ×3 (08:25→17:07)
[2018-11-22] MEDS: DOCUSATE SODIUM 10 MG/ML (10ML CUP) GTB SCH (08:25)
[2018-11-22] MEDS: SENNA TAB PO SCH ×2 (08:25→21:29)
[2018-11-22] MEDS: FOLIC ACID 1 MG TAB GTB SCH (08:25)
[2018-11-22] MEDS: QUETIAPINE 25 MG TAB GTB SCH ×2 (08:25→21:30)
--- NOTE | 2018-11-22 08:25 | PQ ---
Date/Time of Note Date/Time of Note DATE: 11/22/18 TIME: 08:[address] Perez, A review of the medical record found a need for documentation clarification. patient admitted with dementia and has G tube. per RD notes patient does have dysphagia, poor PO intake, muscle wasting with BMI 19. per Rd notes patient does have "Severe protein calorie malnutrition" malnutrition is documented in progress note, please specify if you agree with RD assessment. Thank you Please clarify a diagnosis being treated. To facilitate accurate and complete coding, please glenna ( x ) the suspected diagnosis that apply: ( x ) Severe protein calorie malnutrition ( ) Moderate protein calorie malnutrition ( ) Mild protein calorie malnutrition ( ) Other Please provide your response by clicking edit document,make your choice (x ) , click ok/save and finally click sign. You may alsodocument your responseinyour progress notes. Thank you for your time. Jessica BENITEZ,CCS,CCDS Clinical Consular Officer Health Information Management, CDI and Coding Services [phone] Room # 1525 - [address] [address] JESSICA CINTRON Nov 22, 2018 08:25 DYLON PEREZ MD Nov 22, 2018 13:35
[2018-11-22] MEDS: METOPROLOL 50 MG TAB GTB SCH ×2 (08:26→21:30)
[2018-11-22] MEDS: AMLODIPINE 5 MG TAB GTB SCH (08:26)
[2018-11-22] MEDS: ALBUMIN HUMAN 25% 50 ML IV PRN (11:25)
--- NOTE | 2018-11-22 13:20 | CONS ---
Date/Time of Note Date/Time of Note DATE: 11/22/18 TIME: 13:20 Assessment/Plan Assessment/Plan Hospital Course 83 y/o with 1. Right hand swelling, likely secondary to hematoma, questionable fall. with compression s/p I and D on 11/17/18 2. Gastrointestinal bleed with melena. 3. Hypertension. 4. Diabetes. 5. End-stage renal disease on hemodialysis. 6. History of falls. 7. Vascular dementia. 8. History of sepsis with VRE. 9. Dysphagia, status post G-tube. 10. History of hip fracture. 11. Thrombocytopenia. 12. Atherosclerotic heart disease. Plan - HD today - Hold BP meds before hd - renally dose all meds - abx per ID Result Diagram: 11/22/1842611/22/18426 Results 24hrs Laboratory Tests Test 11/22/18 04:27 11/22/18 08:23 White Blood Count 11.8 #H Red Blood Count 3.02 L Hemoglobin 8.4 L Hematocrit 26.4 L Mean Corpuscular Volume 87.4 Mean Corpuscular Hemoglobin 27.8 L Mean Corpuscular Hemoglobin Concent 31.8 L Red Cell Distribution Width 16.5 H Platelet Count 195 Mean Platelet Volume 10.7 H Immature Granulocytes % 1.000 H Neutrophils % 72.1 Lymphocytes % 11.3 L Monocytes % 10.5 Eosinophils % 4.8 Basophils % 0.3 Nucleated Red Blood Cells % 0.6 H Immature Granulocytes # 0.120 H Neutrophils # 8.5 H Lymphocytes # 1.3 Monocytes # 1.2 H Eosinophils # 0.6 H Basophils # 0.0 Nucleated Red Blood Cells # 0.1 H Sodium Level 144 Potassium Level 3.8 Chloride Level 107 Carbon Dioxide Level 30 Anion Gap 7 Blood Urea Nitrogen 43 #H Creatinine 2.43 H Est Glomerular Filtrat Rate mL/min Glucose Level 119 Calcium Level 8.7 Phosphorus Level 2.8 Magnesium Level 2.5 Bedside Glucose 135 Consultation Date/Type/Reason Admit Date/Time Nov 16, 2018 at 05:51 Initial Consult Date 11/16/18 Requesting Provider: DYLON WALLS MD 24 HR Interval Summary Free Text/Dictation S/P HD today Pt still very confused, combative Exam/Review of Systems Vital Signs Vitals Vital Signs Date Temp Pulse Resp B/P (MAP) Pulse Ox O2 O2 Flow FiO2 Time Delivery Rate 11/22/18 104 12:33 11/22/18 18 93/60 (71) 94 Room Air 12:30 11/22/18 98.6 02:13 11/18/18 2.0 12:28 Intake and Output 11/21/18 11/21/18 11/22/18 1515:00 23:00 07:00 IntakeIntake Total 270 ml 240 ml BalanceBalance 270 ml 240 ml Exam ENERAL: The patient is awake, alert; however, somewhat combative and confused in between. HEENT: Pupils equal, round, reactive to light. NECK: Supple. HEART: Regular rate and rhythm. LUNGS: Clear to auscultate bilaterally. CARDIOVASCULAR: Patient has a left IJ in place. Rt arm s/p I and d WRAPPED EXTREMITIES: No clubbing, cyanosis, or edema. Medications Medications Current Medications IV Flush (NS 3 ml) 3 ml PER PROTOCOL IV ; Start 11/16/18 at 09:00 Ondansetron HCl (Zofran Inj) 4 mg Q6H PRN IV NAUSEA AND/OR VOMITING; Start 11/16/18 at 09:00 Acetaminophen (Tylenol Tab) 650 mg Q6H PRN PO PAIN LEVEL 1-3 OR FEVER Last administered on 11/19/18at 16:46; Admin Dose 650 MG; Start 11/16/18 at 09:00 Docusate Sodium (Colace) 100 mg Q12H PRN PO CONSTIPATION; Start 11/16/18 at 09:00 Magnesium Hydroxide (Milk Of Mag) 30 ml DAILY PRN PO CONSTIPATION; Start 11/16/18 at 09:00 Folic Acid (Folic Acid) 1 mg DAILY GTB Last administered on 11/22/18at 08:25; Admin Dose 1 MG; Start 11/16/18 at 09:00 Albuterol/ Ipratropium (Duoneb) 3 ml Q6 PRN HHN sob; Start 11/16/18 at 09:00 Linagliptin (Tradjenta) 5 mg DAILY GTB Last administered on 11/22/18at 08:25; Admin Dose 5 MG; Start 11/16/18 at 09:00 Lorazepam (Ativan) 1 mg HS PRN GTB ANXIETY Last administered on 11/20/18at 22:11; Admin Dose 1 MG; Start 11/16/18 at 09:00 Quetiapine Fumarate (Seroquel) 25 mg BID GTB Last administered on 11/22/18 08:25; Admin Dose 25 MG; Start 11/16/18 at 09:00 Senna (Senokot) 1 tab BID PO Last administered on 11/22/18 08:25; Admin Dose 1 TAB; Start 11/16/18 at 09:00 Sevelamer Carbonate (Renvela) 0.8 gm WITH MEALS PO Last administered on 11/22/18 08:25; Admin Dose 0.8 GM; Start 11/16/18 at 11:30 Valproate Sodium (Depakene Liquid Cup) 250 mg Q8 PO Last administered on 11/22/18 05:25; Admin Dose 250 MG; Start 11/16/18 at 14:00 Sodium Chloride (NS) -To prime the dialy... DIRECTED FOR HD PRN IV SBP<90; Start 11/16/18 at 15:00 Hydralazine HCl (Apresoline) 10 mg Q4H PRN IV ELEVATED BLOOD PRESSURE Last admi nistered on 11/17/18 14:57; Admin Dose 10 MG; Start 11/17/18 at 10:30 Acetaminophen/ Hydrocodone Bitart ([place] (5/325)) 1 tab Q3H PRN PO MODERATE PAIN LEVEL 4-6; Start 11/17/18 at 14:30 Amlodipine Besylate (Norvasc) 5 mg BID GTB Last administered on 11/21/18 20:40; Admin Dose 5 MG; Start 11/18/18 at 09:00 Hydralazine HCl (Apresoline) 25 mg Q8 PO Last administered on 11/22/18 05:26; Admin Dose 25 MG; Start 11/18/18 at 06:00 Metoprolol Tartrate (Lopressor) 50 mg BID GTB Last administered on 11/21/18 20:40; Admin Dose 50 MG; Start 11/18/18 at 09:00 Albumin Human 50 ml @ 100 mls/hr WITH DIALYSIS PRN IV SBP<90 Last administered on 11/22/18 11:25; Admin Dose 100 MLS/HR; Start 11/18/18 at 14:30 Morphine Sulfate (morphine) 6 mg Q4H PRN PO SEVERE PAIN LEVEL 7-10 Last administered on 1/14/19at 02:16; Admin Dose 6 MG; Start 11/18/18 at 23:00 Docusate Sodium (Colace Liquid Cup) 100 mg DAILY GTB Last administered on 11/22/18at 08:25; Admin Dose 100 MG; Start 11/19/18 at 09:30 Guaifenesin/ Dextromethorphan (Robitussin Dm Liquid Cup) 5 ml Q4H PRN PO cough Last administered on 11/20/18at 17:33; Admin Dose 5 ML; Start 11/20/18 at 14:00 Lansoprazole (Prevacid) 30 mg BID@0600,1800 GTB Last administered on 11/22/18at 05:25; Admin Dose 30 MG; Start 11/21/18 at 18:00 JOSE RAUL ANDREWS MD Nov 22, 2018 13:20
--- NOTE | 2018-11-22 14:35 | PN ---
DATE: 11/22/2018 SUBJECTIVE: The patient was seen and very anxious, status post dialysis today. Vital signs document ed just now as I requested to the nursing staff. PHYSICAL EXAMINATION: VITAL SIGNS: Blood pressure 128/52, pulse 112, respiration is 16, temperature is 98.2, saturation 92 % on room air. GENERAL: The patient is frail. HEENT: Pale, temporal wasting, cachectic. CARDIOVASCULAR: S1, S2. Tachycardic. LUNGS: Decreased bilaterally. ABDOMEN: Soft, nontender. EXTREMITIES: No clubbing, cyanosis or edema. LABORATORY DATA: White count jumped up to 11.8, hemoglobin 8.4, hematocrit 26, platelet count 195, n eutrophils 72%, lymphocytes 11%. Chemistry: Sodium 144, potassium 3.8, chloride 107, bicarbonate 30 , BUN is 43, creatinine 2.43, glucose of 119. The patient's wound culture on 11/17/2018 was negative . Otherwise, all other cultures are negative. MEDICATIONS: All reviewed and include: 1. Prevacid. 2. Robitussin. 3. Colace. 4. Morphine. 5. Albumin. 6. Norvasc. 7. Lopressor. 8. Hydralazine. 9. [place]. 10. Depakote. 11. Renvela. 12. Zofran. 13. Tylenol. 14. Colace. 15. Milk of Magnesia. 16. Folic acid. 17. DuoNeb. 18. Tradjenta. 19. Ativan. 20. Seroquel. 21. Senna. DIAGNOSTIC DATA: Again, EGD was done showed chronic gastritis and pathology report showed antral and oxyntic mucosa showing minimal infiltration and small focus of interstitial metaplasia. No ev idence of dysplasia. No H. pylori. ASSESSMENT AND PLAN: This is an 83-year-old [place] female with history of end-stage renal disease, chronic obstructive pulmonary disease, vascular dementia, cerebrovascular accident, presented with q uestionable gastrointestinal bleed and also was found to have right hand hematoma and wrist swelling. 1. Right hand hematoma status post evacuation. SIOBHAN drainage was removed. Continue wound care and fo llow up with orthopedics in 1 week. 2. Anemia. H and H is now stable. Status post EGD, no active bleeding. Continue proton pump inhib itor. 3. End-stage renal disease. Dialysis was done today. 4. Tachycardia and borderline blood pressure. We will monitor. 5. Anxiety, multifactorial. 6. Continue 1:1 sitter due to danger to self and recurrent falls. 7. Hypertension. May continue reducing the patient's meds due to low borderline blood pressure. 8. Continue G-tube feeding. 9. Severe caloric-protein malnutrition, on G-tube feeding. We will follow. The patient's BMI is 19 .6. Dictated By: DYLON WALLS MD JL/NTS Conf#: [id number] DID#: [id number] CC: CHRISS WELCH MD;*EndCC*
--- NOTE | 2018-11-22 14:43 | CONS ---
Date/Time of Note Date/Time of Note DATE: 11/22/18 TIME: 14:42 Assessment/Plan Assessment/Plan Hospital Course Patient is very restless, status post hemodialysis no fevers overnight. WBC today 11.8 platelets 195 neutrophils 72.1 Microbiology: Intraoperative cultures negative Indwelling: Left chest permacath, PEG Physical examination: Chronically ill-appearing elderly woman who is awake, confused, in no distress. Head atraumatic normocephalic. Neck is supple. Chest rise symmetrical breath sounds diminished bases. Heart: S1-S2. Abdomen soft bowel sounds present, right upper extremity Armani wrapped Assessment: 1. Right hand hematoma, status post I&D 11/17/18 2. Status post VRE bacteremia, status post new Pcath 3. End-stage renal disease, hemodialysis dependent 4. Dementia 5. Failure to thrive 6. Diabetes 8. Anemia Plan: Clinically unchanged, on and off restless, white blood cell count mildly increased today, will check chest x-ray to make sure she didn't not aspirated, follow CBC in a.m. Result Diagram: 11/22/18 0427 11/22/18 0427 Results 24hrs Laboratory Tests Test 11/22/18 04:27 11/22/18 08:23 White Blood Count 11.8 #H Red Blood Count 3.02 L Hemoglobin 8.4 L Hematocrit 26.4 L Mean Corpuscular Volume 87.4 Mean Corpuscular Hemoglobin 27.8 L Mean Corpuscular Hemoglobin Concent 31.8 L Red Cell Distribution Width 16.5 H Platelet Count 195 Mean Platelet Volume 10.7 H Immature Granulocytes % 1.000 H Neutrophils % 72.1 Lymphocytes % 11.3 L Monocytes % 10.5 Eosinophils % 4.8 Basophils % 0.3 Nucleated Red Blood Cells % 0.6 H Immature Granulocytes # 0.120 H Neutrophils # 8.5 H Lymphocytes # 1.3 Monocytes # 1.2 H Eosinophils # 0.6 H Basophils # 0.0 Nucleated Red Blood Cells # 0.1 H Sodium Level 144 Potassium Level 3.8 Chloride Level 107 Carbon Dioxide Level 30 Anion Gap 7 Blood Urea Nitrogen 43 #H Creatinine 2.43 H Est Glomerular Filtrat Rate mL/min Glucose Level 119 Calcium Level 8.7 Phosphorus Level 2.8 Magnesium Level 2.5 Bedside Glucose 135 Consultation Date/Type/Reason Admit Date/Time Nov 16, 2018 at 05:51 Initial Consult Date 11/16/18 Type of Consult id Requesting Provider: DYLON WALLS MD Exam/Review of Systems Vital Signs Vitals Vital Signs Date Temp Pulse Resp B/P (MAP) Pulse Ox O2 O2 Flow FiO2 Time Delivery Rate 11/22/18 98.1 112 18 128/52 94 Room Air 14:04 (77) 11/18/18 2.0 12:28 Intake and Output 11/21/18 11/21/18 11/22/18 1515:00 23:00 07:00 IntakeIntake Total 270 ml 240 ml BalanceBalance 270 ml 240 ml Medications Medications Current Medications IV Flush (NS 3 ml) 3 ml PER PROTOCOL IV ; Start 11/16/18 at 09:00 Ondansetron HCl (Zofran Inj) 4 mg Q6H PRN IV NAUSEA AND/OR VOMITING; Start 11/16/18 at 09:00 Acetaminophen (Tylenol Tab) 650 mg Q6H PRN PO PAIN LEVEL 1-3 OR FEVER Last administered on 11/19/18at 16:46; Admin Dose 650 MG; Start 11/16/18 at 09:00 Docusate Sodium (Colace) 100 mg Q12H PRN PO CONSTIPATION; Start 11/16/18 at 09:00 Magnesium Hydroxide (Milk Of Mag) 30 ml DAILY PRN PO CONSTIPATION; Start 11/16/18 at 09:00 Folic Acid (Folic Acid) 1 mg DAILY GTB Last administered on 11/22/18at 08:25; Admin Dose 1 MG; Start 11/16/18 at 09:00 Albuterol/ Ipratropium (Duoneb) 3 ml Q6 PRN HHN sob; Start 11/16/18 at 09:00 Linagliptin (Tradjenta) 5 mg DAILY GTB Last administered on 11/22/18at 08:25; Admin Dose 5 MG; Start 11/16/18 at 09:00 Lorazepam (Ativan) 1 mg HS PRN GTB ANXIETY Last administered on 11/20/18at 22:11; Admin Dose 1 MG; Start 11/16/18 at 09:00 Quetiapine Fumarate (Seroquel) 25 mg BID GTB Last administered on 11/22/18at 08:25; Admin Dose 25 MG; Start 11/16/18 at 09:00 Senna (Senokot) 1 tab BID PO Last administered on 11/22/18 08:25; Admin Dose 1 TAB; Start 11/16/18 at 09:00 Sevelamer Carbonate (Renvela) 0.8 gm WITH MEALS PO Last administered on 11/22/18 08:25; Admin Dose 0.8 GM; Start 11/16/18 at 11:30 Valproate Sodium (Depakene Liquid Cup) 250 mg Q8 PO Last administered on 11/22/18 14:24; Admin Dose 250 MG; Start 11/16/18 at 14:00 Sodium Chloride (NS) -To prime the dialy... DIRECTED FOR HD PRN IV SBP<90; Start 11/16/18 at 15:00 Hydralazine HCl (Apresoline) 10 mg Q4H PRN IV ELEVATED BLOOD PRESSURE Last administered on 11/17/18 14:57; Admin Dose 10 MG; Start 11/17/18 at 10:30 Acetaminophen/ Hydrocodone Bitart ([place] (5/325)) 1 tab Q3H PRN PO MODERATE PAIN LEVEL 4-6; Start 11/17/18 at 14:30 Hydralazine HCl (Apresoline) 25 mg Q8 PO Last administered on 11/22/18 14:24; Admin Dose 25 MG; Start 11/18/18 at 06:00 Metoprolol Tartrate (Lopressor) 50 mg BID GTB Last administered on 11/21/18 20:40; Admin Dose 50 MG; Start 11/18/18 at 09:00 Albumin Human 50 ml @ 100 mls/hr WITH DIALYSIS PRN IV SBP<90 Last administered on 11/22/18 11:25; Admin Dose 100 MLS/HR; Start 11/18/18 at 14:30 Morphine Sulfate (morphine) 6 mg Q4H PRN PO SEVERE PAIN LEVEL 7-10 Last administered on 11/22/18 02:16; Admin Dose 6 MG; Start 11/18/18 at 23:00 Docusate Sodium (Colace Liquid Cup) 100 mg DAILY GTB Last administered on 11/22/18 08:25; Admin Dose 100 MG; Start 11/19/18 at 09:30 Guaifenesin/ Dextromethorphan (Robitussin Dm Liquid Cup) 5 ml Q4H PRN PO cough Last administered on 1/12/19at 17:33; Admin Dose 5 ML; Start 11/20/18 at 14:00 Lansoprazole (Prevacid) 30 mg BID@0600,1800 GTB Last administered on 11/22/18at 05:25; Admin Dose 30 MG; Start 11/21/18 at 18:00 Amlodipine Besylate (Norvasc) 2.5 mg BID GTB ; Start 11/22/18 at 21:00 PHYLICIA HOLCOMB NP Nov 22, 2018 14:43
--- NOTE | 2018-11-22 15:36 | CONS ---
Date/Time of Note Date/Time of Note DATE: 11/22/18 TIME: 15:34 Consult Date/Type/Reason Admit Date/Time Nov 16, 2018 at 05:51 Initial Consult Date 11/16/18 Type of Consultation: cv Requesting Provider: DYLON WALLS MD Subjective Cardiology follow up note Sl DW/ Staff pt is still getting agitated and yelling/screaming. no report of any chest pain or pressure or palpitations but pt is a very poor historian s/p I/D 11/17 EGD 11.18.18 O: General: Elderly frail male in no acute distress HEENT: NC/AT. pupils are equal. round. NECK: NO JVD. no stridor. CV: RRR. systolic murmur; no gallop or rubs. PULM: no wheezing or rhonchi. GI: SOFT, NT, ND, no rebound or guarding Extremity: Right upper extremity is covered with dressing neuro: awake and alert, does not answer my question Psych: agitated and yelling rectal: deferred An x-ray shows 1. Extensive soft-tissue swelling involving the dorsum of the right hand and wrist but no soft tissue gas or foreign body. 2. No evidence of fracture dislocation or erosions or plain imaging evidence of osteomyelitis. review of old chart shows ECHO done Oct 2018: Normal left ventricular systolic function. Normal left ventricular cavity size. Moderate concentric left ventricular hypertrophy. Ejection fraction is visually estimated at 65 %. Abnormal Diastolic Function. Mitral valve leaflets appear moderately thickened. Moderate mitral annular calcification. Trace mitral regurgitation. Aortic valve not well visualized. No hemodynamically significant aortic stenosis by doppler. Aortic sclerosis without significant stenosis. Aortic cusps appear mildly calcified. Mild to moderate aortic valve regurgitation. Estimated peak PA systolic pressure 40 mmHg. Tricuspid valve appears moderately thickened. There is mild tricuspid regurgitation. ECG 11/16/18: NSR no ischemia Objective Vital Signs Date Temp Pulse Resp B/P (MAP) Pulse Ox O2 O2 Flow FiO2 Time Delivery Rate 11/22/18 98.1 112 18 128/52 94 Room Air 14:04 (77) 11/18/18 2.0 12:28 Intake and Output 11/21/18 11/21/18 11/22/18 1414:59 22:59 06:59 IntakeIntake Total 270 ml 240 ml BalanceBalance 270 ml 240 ml Results/Medications Result Diagram: 11/22/18 0427 11/22/18 0427 Results 24 hrs Laboratory Tests Test 11/22/18 04:27 11/22/18 08:23 White Blood Count 11.8 #H Red Blood Count 3.02 L Hemoglobin 8.4 L Hematocrit 26.4 L Mean Corpuscular Volume 87.4 Mean Corpuscular Hemoglobin 27.8 L Mean Corpuscular Hemoglobin Concent 31.8 L Red Cell Distribution Width 16.5 H Platelet Count 195 Mean Platelet Volume 10.7 H Immature Granulocytes % 1.000 H Neutrophils % 72.1 Lymphocytes % 11.3 L Monocytes % 10.5 Eosinophils % 4.8 Basophils % 0.3 Nucleated Red Blood Cells % 0.6 H Immature Granulocytes # 0.120 H Neutrophils # 8.5 H Lymphocytes # 1.3 Monocytes # 1.2 H Eosinophils # 0.6 H Basophils # 0.0 Nucleated Red Blood Cells # 0.1 H Sodium Level 144 Potassium Level 3.8 Chloride Level 107 Carbon Dioxide Level 30 Anion Gap 7 Blood Urea Nitrogen 43 #H Creatinine 2.43 H Est Glomerular Filtrat Rate mL/min Glucose Level 119 Calcium Level 8.7 Phosphorus Level 2.8 Magnesium Level 2.5 Bedside Glucose 135 Medications Current Medications IV Flush (NS 3 ml) 3 ml PER PROTOCOL IV ; Start 11/16/18 at 09:00 Ondansetron HCl (Zofran Inj) 4 mg Q6H PRN IV NAUSEA AND/OR VOMITING; Start 11/16/18 at 09:00 Acetaminophen (Tylenol Tab) 650 mg Q6H PRN PO PAIN LEVEL 1-3 OR FEVER Last administered on 11/19/18at 16:46; Admin Dose 650 MG; Start 11/16/18 at 09:00 Docusate Sodium (Colace) 100 mg Q12H PRN PO CONSTIPATION; Start 11/16/18 at 09:00 Magnesium Hydroxide (Milk Of Mag) 30 ml DAILY PRN PO CONSTIPATION; Start 11/16/18 at 09:00 Folic Acid (Folic Acid) 1 mg DAILY GTB Last administered on 11/22/18at 08:25; Admin Dose 1 MG; Start 11/16/18 at 09:00 Albuterol/ Ipratropium (Duoneb) 3 ml Q6 PRN HHN sob; Start 11/16/18 at 09:00 Linagliptin (Tradjenta) 5 mg DAILY GTB Last administered on 11/22/18 08:25; Admin Dose 5 MG; Start 11/16/18 at 09:00 Lorazepam (Ativan) 1 mg HS PRN GTB ANXIETY Last administered on 11/20/18 22:11; Admin Dose 1 MG; Start 11/16/18 at 09:00 Quetiapine Fumarate (Seroquel) 25 mg BID GTB Last administered on 11/22/18 08:25; Admin Dose 25 MG; Start 11/16/18 at 09:00 Senna (Senokot) 1 tab BID PO Last administered on 11/22/18 08:25; Admin Dose 1 TAB; Start 11/16/18 at 09:00 Sevelamer Carbonate (Renvela) 0.8 gm WITH MEALS PO Last administered on 11/22/18 08:25; Admin Dose 0.8 GM; Start 11/16/18 at 11:30 Valproate Sodium (Depakene Liquid Cup) 250 mg Q8 PO Last administered on 11/22/18 14:24; Admin Dose 250 MG; Start 11/16/18 at 14:00 Sodium Chloride (NS) -To prime the dialy... DIRECTED FOR HD PRN IV SBP<90; Start 11/16/18 at 15:00 Hydralazine HCl (Apresoline) 10 mg Q4H PRN IV ELEVATED BLOOD PRESSURE Last administered on 11/17/18 14:57; Admin Dose 10 MG; Start 11/17/18 at 10:30 Acetaminophen/ Hydrocodone Bitart ([place] (5/325)) 1 tab Q3H PRN PO MODERATE PAIN LEVEL 4-6; Start 11/17/18 at 14:30 Hydralazine HCl (Apresoline) 25 mg Q8 PO Last administered on 11/22/18 14:24; Admin Dose 25 MG; Start 11/18/18 at 06:00 Metoprolol Tartrate (Lopressor) 50 mg BID GTB Last administered on 11/21/18 20:40; Admin Dose 50 MG; Start 11/18/18 at 09:00 Albumin Human 50 ml @ 100 mls/hr WITH DIALYSIS PRN IV SBP<90 Last administered on 11/22/18 11:25; Admin Dose 100 MLS/HR; Start 11/18/18 at 14:30 Morphine Sulfate (morphine) 6 mg Q4H PRN PO SEVERE PAIN LEVEL 7-10 Last administered on 11/22/18 02:16; Admin Dose 6 MG; Start 11/18/18 at 23:00 Docusate Sodium (Colace Liquid Cup) 100 mg DAILY GTB Last administered on 11/22/18 08:25; Admin Dose 100 MG; Start 11/19/18 at 09:30 Guaifenesin/ Dextromethorphan (Robitussin Dm Liquid Cup) 5 ml Q4H PRN PO cough Last administered on 11/20/18at 17:33; Admin Dose 5 ML; Start 11/20/18 at 14:00 Lansoprazole (Prevacid) 30 mg BID@0600,1800 GTB Last administered on 11/22/18at 05:25; Admin Dose 30 MG; Start 11/21/18 at 18:00 Amlodipine Besylate (Norvasc) 2.5 mg BID GTB ; Start 11/22/18 at 21:00 Assessment/Plan Chief Complaint/Hosp Course Cardiovascular preop evaluation Right hand hematoma Renal failure on dialysis Hypertension Dementia Anemia Possible GI bleed: Status post EGD AI Recommendations: transfusion with HD prn Dialysis as per renal team Her old chart was reviewed. In 2013 patient had a stress test which showed ejection fraction of 80% and no evidence of reversible ischemia considered a normal stress test at the time Based on above no further cardiac workup would be indicated. Continue with the blood pressure medication especially beta-farrah up to and including day of surgery Thank you for his referral. We will continue to follow along with you as needed CHRISTEN ESCOBEDO MD [facility] CHRISTEN ESCOBEDO MD Nov 22, 2018 15:35
[2018-11-22] MEDS: HYDROCODONE/APAP (5/325) TAB PO PRN (17:07)
[2018-11-22] MEDS: AMLODIPINE 2.5 MG TAB GTB SCH (21:31)
[2018-11-22] MEDS: ACETAMINOPHEN 325 MG TAB PO PRN (21:31)
[2018-11-22] MEDS: LORAZEPAM 1 MG TAB GTB PRN (21:31)
[2018-11-23 02:00] VITALS: BP 111/52; PULSE 88; RESP 18
[2018-11-23] MEDS: VALPROIC ACID LIQUID CUP 250 MG/5 ML CUP PO SCH ×3 (06:19→21:50)
[2018-11-23] MEDS: LANSOPRAZOLE 30 MG CAP GTB SCH ×2 (06:19→17:28)
[2018-11-23 08:33] VITALS: BP 115/45; PULSE 88; RESP 16
--- NOTE | 2018-11-23 09:04 | CONS ---
Date/Time of Note Date/Time of Note DATE: 11/23/18 TIME: 09:03 Consult Date/Type/Reason Admit Date/Time Nov 16, 2018 at 05:51 Initial Consult Date 11/16/18 Type of Consultation: cv Requesting Provider: DYLON WALLS MD Subjective Cardiology follow up note Sl DW/ Staff pt is still getting confused and agitated and yelling/screaming. no report of any chest pain or pressure or palpitations but pt is a very poor historian s/p I/D 11/17 EGD 11.18.18 O: General: Elderly frail male in no acute distress HEENT: NC/AT. pupils are equal. round. NECK: NO JVD. no stridor. CV: RRR. systolic murmur; no gallop or rubs. PULM: no wheezing or rhonchi. GI: SOFT, NT, ND, no rebound or guarding Extremity: Right upper extremity is covered with dressing neuro: sleeping now Psych: calm now rectal: deferred CXR 11/22: 1. Left lung interstitial opacities may reflect edema or pneumonia. Findings are new when compared to the prior examination. 2. Mild cardiomegaly and aortic atherosclerosis. 3. Left chest Perma-Cath with tip in the lower SVC. review of old chart shows ECHO done Oct 2018: Normal left ventricular systolic function. Normal left ventricular cavity size. Moderate concentric left ventricular hypertrophy. Ejection fraction is visually estimated at 65 %. Abnormal Diastolic Function. Mitral valve leaflets appear moderately thickened. Moderate mitral annular calcification. Trace mitral regurgitation. Aortic valve not well visualized. No hemodynamically significant aortic stenosis by doppler. Aortic sclerosis without significant stenosis. Aortic cusps appear mildly calcified. Mild to moderate aortic valve regurgitation. Estimated peak PA systolic pressure 40 mmHg. Tricuspid valve appears moderately thickened. There is mild tricuspid regurgitation. ECG 11/16/18: NSR no ischemia Objective Vital Signs Date Temp Pulse Resp B/P (MAP) Pulse Ox O2 O2 Flow FiO2 Time Delivery Rate 11/23/18 100.2 88 16 115/45 96 08:33 (68) 11/22/18 Room Air 14:04 Intake and Output 11/22/18 11/22/18 11/23/18 1414:59 22:59 06:59 IntakeIntake Total 50 ml OutputOutput Total 1700 ml BalanceBalance -1700 ml 50 ml Results/Medications Result Diagram: 11/23/18 0511/23/18 0521 Results 24 hrs Laboratory Tests Test 11/23/18 05:21 White Blood Count 7.6 # Red Blood Count 2.93 L Hemoglobin 8.1 L Hematocrit 26.1 L Mean Corpuscular Volume 89.1 Mean Corpuscular Hemoglobin 27.6 L Mean Corpuscular Hemoglobin Concent 31.0 L Red Cell Distribution Width 16.7 H Platelet Count 173 Mean Platelet Volume 11.2 H Immature Granulocytes % 1.100 H Neutrophils % 73.8 Lymphocytes % 9.0 L Monocytes % 12.0 H Eosinophils % 3.8 Basophils % 0.3 Nucleated Red Blood Cells % 0.8 H Immature Granulocytes # 0.080 H Neutrophils # 5.6 Lymphocytes # 0.7 L Monocytes # 0.9 Eosinophils # 0.3 Basophils # 0.0 Nucleated Red Blood Cells # 0.1 H Sodium Level 143 Potassium Level 3.5 Chloride Level 101 Carbon Dioxide Level 34 H Anion Gap 8 Blood Urea Nitrogen 31 #H Creatinine 2.10 H Est Glomerular Filtrat Rate mL/min Glucose Level 127 Calcium Level 8.5 Phosphorus Level 1.9 L Magnesium Level 2.4 Medications Current Medications IV Flush (NS 3 ml) 3 ml PER PROTOCOL IV ; Start 11/16/18 at 09:00 Ondansetron HCl (Zofran Inj) 4 mg Q6H PRN IV NAUSEA AND/OR VOMITING; Start 11/16/18 at 09:00 Acetaminophen (Tylenol Tab) 650 mg Q6H PRN PO PAIN LEVEL 1-3 OR FEVER Last administered on 11/22/18at 21:31; Admin Dose 650 MG; Start 11/16/18 at 09:00 Docusate Sodium (Colace) 100 mg Q12H PRN PO CONSTIPATION; Start 11/16/18 at 09:00 Magnesium Hydroxide (Milk Of Mag) 30 ml DAILY PRN PO CONSTIPATION; Start 11/16/18 at 09:00 Folic Acid (Folic Acid) 1 mg DAILY GTB Last administered on 11/22/18at 08:25; Admin Dose 1 MG; Start 11/16/18 at 09:00 Albuterol/ Ipratropium (Duoneb) 3 ml Q6 PRN HHN sob; Start 11/16/18 at 09:00 Linagliptin (Tradjenta) 5 mg DAILY GTB Last administered on 11/22/18 08:25; Admin Dose 5 MG; Start 11/16/18 at 09:00 Lorazepam (Ativan) 1 mg HS PRN GTB ANXIETY Last administered on 11/22/18 21:31; Admin Dose 1 MG; Start 11/16/18 at 09:00 Quetiapine Fumarate (Seroquel) 25 mg BID GTB Last administered on 11/22/18 21:30; Admin Dose 25 MG; Start 11/16/18 at 09:00 Senna (Senokot) 1 tab BID PO Last administered on 11/22/18 21:29; Admin Dose 1 TAB; Start 11/16/18 at 09:00 Sevelamer Carbonate (Renvela) 0.8 gm WITH MEALS PO Last administered on 11/22/18 17:07; Admin Dose 0.8 GM; Start 11/16/18 at 11:30 Valproate Sodium (Depakene Liquid Cup) 250 mg Q8 PO Last administered on 11/23/18 06:19; Admin Dose 250 MG; Start 11/16/18 at 14:00 Sodium Chloride (NS) -To prime the dialy... DIRECTED FOR HD PRN IV SBP<90; Start 11/16/18 at 15:00 Hydralazine HCl (Apresoline) 10 mg Q4H PRN IV ELEVATED BLOOD PRESSURE Last administered on 11/17/18 14:57; Admin Dose 10 MG; Start 11/17/18 at 10:30 Acetaminophen/ Hydrocodone Bitart ([place] (5/325)) 1 tab Q3H PRN PO MODERATE PAIN LEVEL 4-6 Last administered on 11/22/18 17:07; Admin Dose 1 TAB; Start 11/17/18 at 14:30 Hydralazine HCl (Apresoline) 25 mg Q8 PO Last administered on 11/22/18 21:31; Admin Dose 25 MG; Start 11/18/18 at 06:00 Metoprolol Tartrate (Lopressor) 50 mg BID GTB Last administered on 11/22/18 21:30; Admin Dose 50 MG; Start 11/18/18 at 09:00 Albumin Human 50 ml @ 100 mls/hr WITH DIALYSIS PRN IV SBP<90 Last administered on 11/22/18 11:25; Admin Dose 100 MLS/HR; Start 11/18/18 at 14:30 Morphine Sulfate (morphine) 6 mg Q4H PRN PO SEVERE PAIN LEVEL 7-10 Last administered on 11/22/18at 02:16; Admin Dose 6 MG; Start 11/18/18 at 23:00 Docusate Sodium (Colace Liquid Cup) 100 mg DAILY GTB Last administered on 11/22/18at 08:25; Admin Dose 100 MG; Start 11/19/18 at 09:30 Guaifenesin/ Dextromethorphan (Robitussin Dm Liquid Cup) 5 ml Q4H PRN PO cough Last administered on 11/20/18at 17:33; Admin Dose 5 ML; Start 11/20/18 at 14:00 Lansoprazole (Prevacid) 30 mg BID@0600,1800 GTB Last administered on 11/23/18at 06:19; Admin Dose 30 MG; Start 11/21/18 at 18:00 Amlodipine Besylate (Norvasc) 2.5 mg BID GTB Last administered on 11/22/18at 21:31; Admin Dose 2.5 MG; Start 11/22/18 at 21:00 Assessment/Plan Chief Complaint/Hosp Course Cardiovascular preop evaluation Right hand hematoma Renal failure on dialysis Hypertension Dementia Anemia Possible GI bleed: Status post EGD AI Recommendations: transfusion with HD prn Dialysis as per renal team Her old chart was reviewed. In 2013 patient had a stress test which showed ejection fraction of 80% and no evidence of reversible ischemia considered a normal stress test at the time Based on above no further cardiac workup would be indicated. Continue with the blood pressure medication especially beta-farrah up to and including day of surgery Thank you for his referral. We will continue to follow along with you as needed CHRISTEN ESCOBEDO MD [facility] CHRISTEN ESCOBEDO MD Nov 23, 2018 09:04
--- NOTE | 2018-11-23 09:10 | PN ---
Date/Time of Note Date/Time of Note DATE: 11/23/18 TIME: 09:09 Assessment/Plan VTE Prophylaxis Risk score (from Nsg)>0 risk: 9 SCD applied (from Ns): Yes Pharmacological prophylaxis: NA/contraindicated Pharm contraindication: bleeding, renal impairment Lines/Catheters IV Catheter Type (from Nrs): Saline Lock Urinary Cath still in place: No Assessment/Plan Hospital Course 83 yo female in ESRD on HD presents for melena and anemia and also found to have edematous Rt hand/wrist 1. UGIB manifested through melena and anemia -no melena noted or GI bleeding noted by nursing staff 2. Anemia, acute on chronic, acute likely due to blood loss in rt hand -Hgb 6.8->10.6->9.2->8.3 -No evidence of active GI bleeding, consider etiology of blood loss anemia to be from hematoma in hand -s/p 2 units with HD on 11/17 -Fe wnl, TIBC low, Ferritin, folate, b12 high, FOB neg 3. ESRD on HD -receiving HD currently 4. Hematoma of Rt hand and wrist -I and D drainage by Dr. Dean 11/17 5. Dysphagia -on tube feeds and pureed nectar for oral gratification 6. DM2 7. HTN 8. H/O diastolic dysfunction heart failure 9. S/P EGD 11/18 10. Moderate gastritis with no bleeding noted. Gastric biopsy results: Stomach, biopsy: -- Antral and oxyntic mucosa showing minimal plasma cell infiltration and small focus of intestinal metaplasia. -- No Helicobacter pylori is identified in Giemsa stain (positive control concurrently reviewed). -- No evidence of dysplasia or malignancy. Plan: Continue present care Monitor HH closely and for active GI bleeding PPI BID Pt examined and plan of care discussed with Dr. Baird Result Diagram: 11/23/18 0511/23/1821 Results 24hrs Laboratory Tests Test 11/23/18 05:21 White Blood Count 7.6 # Red Blood Count 2.93 L Hemoglobin 8.1 L Hematocrit 26.1 L Mean Corpuscular Volume 89.1 Mean Corpuscular Hemoglobin 27.6 L Mean Corpuscular Hemoglobin Concent 31.0 L Red Cell Distribution Width 16.7 H Platelet Count 173 Mean Platelet Volume 11.2 H Immature Granulocytes % 1.100 H Neutrophils % 73.8 Lymphocytes % 9.0 L Monocytes % 12.0 H Eosinophils % 3.8 Basophils % 0.3 Nucleated Red Blood Cells % 0.8 H Immature Granulocytes # 0.080 H Neutrophils # 5.6 Lymphocytes # 0.7 L Monocytes # 0.9 Eosinophils # 0.3 Basophils # 0.0 Nucleated Red Blood Cells # 0.1 H Sodium Level 143 Potassium Level 3.5 Chloride Level 101 Carbon Dioxide Level 34 H Anion Gap 8 Blood Urea Nitrogen 31 #H Creatinine 2.10 H Est Glomerular Filtrat Rate mL/min Glucose Level 127 Calcium Level 8.5 Phosphorus Level 1.9 L Magnesium Level 2.4 Subjective 24 Hr Interval Summary Free Text/Dictation No acute changes. No bm since 11/21. Tolerating tube feed boluses TID. Resting comfortably. Exam/Review of Systems Vital Signs Vitals Vital Signs Date Temp Pulse Resp B/P (MAP) Pulse Ox O2 O2 Flow FiO2 Time Delivery Rate 11/23/18 100.2 88 16 115/45 96 08:33 (68) 11/22/18 Room Air 14:04 Intake and Output 11/22/18 11/22/18 11/23/18 1515:00 23:00 07:00 IntakeIntake Total 50 ml OutputOutput Total 1700 ml BalanceBalance -1700 ml 50 ml Exam Constitutional: alert, oriented Psych: no complaints Head: normocephalic Eyes: nl sclera, PERRL ENMT: mucosa pink and moist Respiratory: diminished breath sounds Cardiovascular: regular rate and rhythm Gastrointestinal: soft 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: confused Medications Medications Current Medications IV Flush (NS 3 ml) 3 ml PER PROTOCOL IV ; Start 11/16/18 at 09:00 Ondansetron HCl (Zofran Inj) 4 mg Q6H PRN IV NAUSEA AND/OR VOMITING; Start 11/16/18 at 09:00 Acetaminophen (Tylenol Tab) 650 mg Q6H PRN PO PAIN LEVEL 1-3 OR FEVER Last administered on 11/22/18at 21:31; Admin Dose 650 MG; Start 11/16/18 at 09:00 Docusate Sodium (Colace) 100 mg Q12H PRN PO CONSTIPATION; Start 11/16/18 at 09:00 Magnesium Hydroxide (Milk Of Mag) 30 ml DAILY PRN PO CONSTIPATION; Start 11/16/18 at 09:00 Folic Acid (Folic Acid) 1 mg DAILY GTB Last administered on 11/22/18 08:25; Admin Dose 1 MG; Start 11/16/18 at 09:00 Albuterol/ Ipratropium (Duoneb) 3 ml Q6 PRN HHN sob; Start 11/16/18 at 09:00 Linagliptin (Tradjenta) 5 mg DAILY GTB Last administered on 11/22/18 08:25; Admin Dose 5 MG; Start 11/16/18 at 09:00 Lorazepam (Ativan) 1 mg HS PRN GTB ANXIETY Last administered on 11/22/18 21:31; Admin Dose 1 MG; Start 11/16/18 at 09:00 Quetiapine Fumarate (Seroquel) 25 mg BID GTB Last administered on 11/22/18 21:30; Admin Dose 25 MG; Start 11/16/18 at 09:00 Senna (Senokot) 1 tab BID PO Last administered on 11/22/18 21:29; Admin Dose 1 TAB; Start 11/16/18 at 09:00 Sevelamer Carbonate (Renvela) 0.8 gm WITH MEALS PO Last administered on 11/22/18 17:07; Admin Dose 0.8 GM; Start 11/16/18 at 11:30 Valproate Sodium (Depakene Liquid Cup) 250 mg Q8 PO Last administered on 11/23/18 06:19; Admin Dose 250 MG; Start 11/16/18 at 14:00 Sodium Chloride (NS) -To prime the dialy... DIRECTED FOR HD PRN IV SBP<90; Start 11/16/18 at 15:00 Hydralazine HCl (Apresoline) 10 mg Q4H PRN IV ELEVATED BLOOD PRESSURE Last administered on 11/17/18 14:57; Admin Dose 10 MG; Start 11/17/18 at 10:30 Acetaminophen/ Hydrocodone Bitart ([place] (5/325)) 1 tab Q3H PRN PO MODERATE PAIN LEVEL 4-6 Last administered on 11/22/18 17:07; Admin Dose 1 TAB; Start 11/17/18 at 14:30 Hydralazine HCl (Apresoline) 25 mg Q8 PO Last administered on 11/22/18 21:31; Admin Dose 25 MG; Start 11/18/18 at 06:00 Metoprolol Tartrate (Lopressor) 50 mg BID GTB Last administered on 11/22/18 21:30; Admin Dose 50 MG; Start 11/18/18 at 09:00 Albumin Human 50 ml @ 100 mls/hr WITH DIALYSIS PRN IV SBP<90 Last administered on 11/22/18 11:25; Admin Dose 100 MLS/HR; Start 11/18/18 at 14:30 Morphine Sulfate (morphine) 6 mg Q4H PRN PO SEVERE PAIN LEVEL 7-10 Last administered on 11/22/18 02:16; Admin Dose 6 MG; Start 11/18/18 at 23:00 Docusate Sodium (Colace Liquid Cup) 100 mg DAILY GTB Last administered on 11/22/18 08:25; Admin Dose 100 MG; Start 11/19/18 at 09:30 Guaifenesin/ Dextromethorphan (Robitussin Dm Liquid Cup) 5 ml Q4H PRN PO cough Last administered on 11/20/18 17:33; Admin Dose 5 ML; Start 11/20/18 at 14:00 Lansoprazole (Prevacid) 30 mg BID@0600,1800 GTB Last administered on 11/23/18 06:19; Admin Dose 30 MG; Start 11/21/18 at 18:00 Amlodipine Besylate (Norvasc) 2.5 mg BID GTB Last administered on 11/22/18 21:31; Admin Dose 2.5 MG; Start 11/22/18 at 21:00 TONY VENCES Nov 23, 2018 09:10
[2018-11-23] MEDS: SEVELAMER CARBONATE 0.8 GM PKT PO SCH ×3 (09:51→17:28)
[2018-11-23] MEDS: ACETAMINOPHEN 325 MG TAB PO PRN (09:52)
[2018-11-23] MEDS: DOCUSATE SODIUM 10 MG/ML (10ML CUP) GTB SCH (09:52)
[2018-11-23] MEDS: FOLIC ACID 1 MG TAB GTB SCH (09:52)
[2018-11-23] MEDS: QUETIAPINE 25 MG TAB GTB SCH ×2 (09:52→20:47)
[2018-11-23] MEDS: SENNA TAB PO SCH ×2 (09:52→20:48)
[2018-11-23] MEDS: AMLODIPINE 2.5 MG TAB GTB SCH ×2 (09:53→20:46)
[2018-11-23] MEDS: METOPROLOL 50 MG TAB GTB SCH ×2 (09:53→20:48)
[2018-11-23] MEDS: LINAGLIPTIN 5 MG TABLET GTB SCH (09:58)
--- NOTE | 2018-11-23 11:41 | CONS ---
Date/Time of Note Date/Time of Note DATE: 11/23/18 TIME: 11:40 Assessment/Plan Assessment/Plan Hospital Course Low-grade fevers with a T-max of 100.4. WBC 7.6 platelets 173 neutrophils 73.8 Chest x-ray revealed left lung interstitial opacities questionable edema versus pneumonia. Findings are new Indwelling: Left chest permacath, PEG Physical examination: Chronically ill-appearing elderly woman who is awake, con fused, in no distress. Head atraumatic normocephalic. Neck is supple. Chest rise symmetrical breath sounds diminished bases. Heart: S1-S2. Abdomen soft bowel sounds present, right upper extremity Armani wrapped Assessment: 1. Healthcare associated pneumonia, possibly aspiration 2. Right hand hematoma, status post I&D 11/17/18 3. Status post VRE bacteremia, status post new Pcath 4. End-stage renal disease, hemodialysis dependent 5. Dementia 6. Failure to thrive 7. Diabetes 8. Anemia Plan: Clinically unchanged, we will will start her on broad-spectrum antibiotics with vancomycin and meropenem Result Diagram: 11/23/1821 11/23/18 0521 Results 24hrs Laboratory Tests Test 11/23/18 05:21 11/23/18 09:58 White Blood Count 7.6 # Red Blood Count 2.93 L Hemoglobin 8.1 L Hematocrit 26.1 L Mean Corpuscular Volume 89.1 Mean Corpuscular Hemoglobin 27.6 L Mean Corpuscular Hemoglobin Concent 31.0 L Red Cell Distribution Width 16.7 H Platelet Count 173 Mean Platelet Volume 11.2 H Immature Granulocytes % 1.100 H Neutrophils % 73.8 Lymphocytes % 9.0 L Monocytes % 12.0 H Eosinophils % 3.8 Basophils % 0.3 Nucleated Red Blood Cells % 0.8 H Immature Granulocytes # 0.080 H Neutrophils # 5.6 Lymphocytes # 0.7 L Monocytes # 0.9 Eosinophils # 0.3 Basophils # 0.0 Nucleated Red Blood Cells # 0.1 H Sodium Level 143 Potassium Level 3.5 Chloride Level 101 Carbon Dioxide Level 34 H Anion Gap 8 Blood Urea Nitrogen 31 #H Creatinine 2.10 H Est Glomerular Filtrat Rate mL/min Glucose Level 127 Calcium Level 8.5 Phosphorus Level 1.9 L Magnesium Level 2.4 Bedside Glucose 150 Consultation Date/Type/Reason Admit Date/Time Nov 16, 2018 at 05:51 Initial Consult Date 11/16/18 Type of Consult id Requesting Provider: DYLON WALLS MD Exam/Review of Systems Vital Signs Vitals Vital Signs Date Temp Pulse Resp B/P (MAP) Pulse Ox O2 O2 Flow FiO2 Time Delivery Rate 11/23/18 98.8 11:08 11/23/18 88 16 115/45 96 08:33 (68) 11/22/18 Room Air 14:04 Intake and Output 11/22/18 11/22/18 11/23/18 1515:00 23:00 07:00 IntakeIntake Total 50 ml OutputOutput Total 1700 ml BalanceBalance -1700 ml 50 ml Medications Medications Current Medications IV Flush (NS 3 ml) 3 ml PER PROTOCOL IV ; Start 11/16/18 at 09:00 Ondansetron HCl (Zofran Inj) 4 mg Q6H PRN IV NAUSEA AND/OR VOMITING; Start 11/16/18 at 09:00 Acetaminophen (Tylenol Tab) 650 mg Q6H PRN PO PAIN LEVEL 1-3 OR FEVER Last administered on 11/23/18at 09:52; Admin Dose 650 MG; Start 11/16/18 at 09:00 Docusate Sodium (Colace) 100 mg Q12H PRN PO CONSTIPATION; Start 11/16/18 at 09:00 Magnesium Hydroxide (Milk Of Mag) 30 ml DAILY PRN PO CONSTIPATION; Start 11/16/18 at 09:00 Folic Acid (Folic Acid) 1 mg DAILY GTB Last administered on 11/23/18at 09:52; Admin Dose 1 MG; Start 11/16/18 at 09:00 Albuterol/ Ipratropium (Duoneb) 3 ml Q6 PRN HHN sob; Start 11/16/18 at 09:00 Linagliptin (Tradjenta) 5 mg DAILY GTB Last administered on 11/23/18at 09:58; Admin Dose 5 MG; Start 11/16/18 at 09:00 Lorazepam (Ativan) 1 mg HS PRN GTB ANXIETY Last administered on 11/22/18at 21:31; Admin Dose 1 MG; Start 11/16/18 at 09:00 Quetiapine Fumarate (Seroquel) 25 mg BID GTB Last administered on 11/23/18at 09:52; Admin Dose 25 MG; Start 11/16/18 at 09:00 Senna (Senokot) 1 tab BID PO Last administered on 11/23/18 09:52; Admin Dose 1 TAB; Start 11/16/18 at 09:00 Sevelamer Carbonate (Renvela) 0.8 gm WITH MEALS PO Last administered on 11/23/18 09:51; Admin Dose 0.8 GM; Start 11/16/18 at 11:30 Valproate Sodium (Depakene Liquid Cup) 250 mg Q8 PO Last administered on 11/23/18 06:19; Admin Dose 250 MG; Start 11/16/18 at 14:00 Sodium Chloride (NS) -To prime the dialy... DIRECTED FOR HD PRN IV SBP<90; Start 11/16/18 at 15:00 Hydralazine HCl (Apresoline) 10 mg Q4H PRN IV ELEVATED BLOOD PRESSURE Last administered on 11/17/18 14:57; Admin Dose 10 MG; Start 11/17/18 at 10:30 Acetaminophen/ Hydrocodone Bitart ([place] (5/325)) 1 tab Q3H PRN PO MODERATE PAIN LEVEL 4-6 Last administered on 11/22/18 17:07; Admin Dose 1 TAB; Start 11/17/18 at 14:30 Hydralazine HCl (Apresoline) 25 mg Q8 PO Last administered on 11/22/18 21:31; Admin Dose 25 MG; Start 11/18/18 at 06:00 Metoprolol Tartrate (Lopressor) 50 mg BID GTB Last administered on 11/23/18 09:53; Admin Dose 50 MG; Start 11/18/18 at 09:00 Albumin Human 50 ml @ 100 mls/hr WITH DIALYSIS PRN IV SBP<90 Last administered on 11/22/18 11:25; Admin Dose 100 MLS/HR; Start 11/18/18 at 14:30 Morphine Sulfate (morphine) 6 mg Q4H PRN PO SEVERE PAIN LEVEL 7-10 Last administered on 11/22/18 02:16; Admin Dose 6 MG; Start 11/18/18 at 23:00 Docusate Sodium (Colace Liquid Cup) 100 mg DAILY GTB Last administered on 11/23/18 09:52; Admin Dose 100 MG; Start 11/19/18 at 09:30 Guaifenesin/ Dextromethorphan (Robitussin Dm Liquid Cup) 5 ml Q4H PRN PO cough Last administered on 11/20/18at 17:33; Admin Dose 5 ML; Start 11/20/18 at 14:00 Lansoprazole (Prevacid) 30 mg BID@0600,1800 GTB Last administered on 11/23/18at 06:19; Admin Dose 30 MG; Start 11/21/18 at 18:00 Amlodipine Besylate (Norvasc) 2.5 mg BID GTB Last administered on 11/23/18at 09:53; Admin Dose 2.5 MG; Start 11/22/18 at 21:00 Vancomycin HCl (Vanco Iv Per Pharmacy) VANCOMYCIN PER PHARMACY PER PROTOCOL XX ; Start 11/23/18 at 12:00; Status UNV Meropenem/Sodium Chloride 50 ml @ 100 mls/hr Q12 IVPB ; Start 11/23/18 at 13:00 PHYLICIA HOLCOMB NP Nov 23, 2018 11:41
[2018-11-23] MEDS ORDERED: VANCOMYCIN IV PER PHARMACY XX SCH (12:00)
[2018-11-23] MEDS ORDERED: MEROPENEM 500MG/50 ML (PMX) 50 ML IVPB SCH (13:00)
[2018-11-23] MEDS ORDERED: VANCOMYCIN 750 MG (PMX) 250 ML IVPB SCH (13:30)
--- NOTE | 2018-11-23 14:12 | PN ---
DATE: 11/23/2018 SUBJECTIVE: Unfortunately, the patient is spiking up fever. Case was discussed with ID. The patien t empirically was on broad spectrum antibiotics with vancomycin and Merrem. Chest x-ray shows left l sun interstitial opacity, may reflect edema or pneumonia. Findings are new. Again, we are concerned that patient may have aspirated. ID is following closely. PHYSICAL EXAMINATION: VITAL SIGNS: Blood pressure is 115/45, pulse 88, respirations 16, temperature 98.8, saturation 96%. T-max is 100.4. GENERAL: The patient is in no acute distress, currently sleeping, lethargic. CARDIOVASCULAR: S1, S2. LUNGS: Decreased bilaterally. ABDOMEN: Soft, nontender. EXTREMITIES: No clubbing, cyanosis or edema. LABORATORY DATA: White count 7.6, hemoglobin 8.1, hematocrit 26, platelet count is 173, neutrophils 74%, lymphs 9%. Chemistry: Sodium 143, potassium 3.5, chloride 101, bicarbonate 34, BUN is 31, crea tinine 2.1, glucose 127. DIAGNOSTIC DATA: Again, chest x-ray does show left lung interstitial opacity, may reflect edema or p neumonia. Findings are new compared to the prior exam. Mild cardiomegaly and aortic atherosclerosis . Left chest PermCath with tip in the low SVC. CURRENT MEDICATIONS: Reviewed and include: 1. Merrem daily. 2. Vancomycin daily as directed. 3. Norvasc 2.5 b.i.d. 4. Prevacid 30 mg twice a day. 5. Robitussin p.r.n. 6. Colace 100 daily. 7. Morphine sulfate as directed. 8. Albumin p.r.n. 9. Lopressor 50 b.i.d. 10. Hydralazine 25 mg q.8. 11. [place] p.r.n. 12. ____ 13. Depakote 250 q.8. 14. Renvela 0.8 t.i.d. meals. 15. Zofran p.r.n. 16. Tylenol p.r.n. 17. Colace p.r.n. 18. Milk of Magnesia. 19. Folic acid 1 mg daily. 20. DuoNeb q.6 p.r.n. 21. Tradjenta 5 mg daily. 22. Lorazepam 1 mg at bedtime p.r.n. 23. Seroquel 25 b.i.d. 24. Senna 1 tab b.i.d. ASSESSMENT AND PLAN: This is an 83-year-old [place] female with past medical history of end-stage r enal disease, dementia, psychiatric disorder, chronic obstructive pulmonary disease, who presented wi th right hand severe hematoma which may have been due to fall and also gastrointestinal bleed. 1. Right hand hematoma, status post evacuation and SIOBHAN drainage removal. Continue wound care. Follo w up with orthopedics in 1 week. 2. Anemia. Transfuse p.r.n. Status post EGD. Stool occult blood was negative and no significant f inding on EGD. Continue proton pump inhibitor. 3. End-stage renal disease. Dialysis 3 times a week on Thursday, Thursday and Thursday. 4. Tachycardia, stable, resolved. Blood pressure is stable. 5. Anxiety, multifactorial. Continue 1:1 sitter due to danger to self and recurrent falls. 6. Continue G-tube feeding. 7. Hospital-acquired pneumonia likely due to aspiration. Broad spectrum antibiotics started again. We will follow up with fever curve. Follow up labs. DISPOSITION: ____ Dictated By: DYLON HULL/MADAN Conf#: [id number] DID#: [id number] CC: CHRISS WELCH MD;*EndCC*
--- NOTE | 2018-11-23 14:36 | CONS ---
Date/Time of Note Date/Time of Note DATE: 11/23/18 TIME: 14:34 Assessment/Plan Assessment/Plan Hospital Course 83 y/o with 1. Right hand swelling, likely secondary to hematoma, questionable fall. with compression s/p I and D on 11/17/18 2. Gastrointestinal bleed with melena. 3. Hypertension. 4. Diabetes. 5. End-stage renal disease on hemodialysis. 6. History of falls. 7. Vascular dementia.with AMS 8. History of sepsis with VRE. 9. Dysphagia, status post G-tube. 10. History of hip fracture. 11. Thrombocytopenia. 12. Atherosclerotic heart disease. Plan - HD TMW - Restarted abx - Monitor fevers - Hold BP meds before hd - renally dose all meds Result Diagram: 11/23/1852011/23/18520 Results 24hrs Laboratory Tests Test 11/23/18 05:21 11/23/18 09:58 White Blood Count 7.6 # Red Blood Count 2.93 L Hemoglobin 8.1 L Hematocrit 26.1 L Mean Corpuscular Volume 89.1 Mean Corpuscular Hemoglobin 27.6 L Mean Corpuscular Hemoglobin Concent 31.0 L Red Cell Distribution Width 16.7 H Platelet Count 173 Mean Platelet Volume 11.2 H Immature Granulocytes % 1.100 H Neutrophils % 73.8 Lymphocytes % 9.0 L Monocytes % 12.0 H Eosinophils % 3.8 Basophils % 0.3 Nucleated Red Blood Cells % 0.8 H Immature Granulocytes # 0.080 H Neutrophils # 5.6 Lymphocytes # 0.7 L Monocytes # 0.9 Eosinophils # 0.3 Basophils # 0.0 Nucleated Red Blood Cells # 0.1 H Sodium Level 143 Potassium Level 3.5 Chloride Level 101 Carbon Dioxide Level 34 H Anion Gap 8 Blood Urea Nitrogen 31 #H Creatinine 2.10 H Est Glomerular Filtrat Rate mL/min Glucose Level 127 Calcium Level 8.5 Phosphorus Level 1.9 L Magnesium Level 2.4 Bedside Glucose 150 Consultation Date/Type/Reason Admit Date/Time Nov 16, 2018 at 05:51 Initial Consult Date 11/16/18 Requesting Provider: DYLON WALLS MD 24 HR Interval Summary Free Text/Dictation Fevers again today pt sleepy Exam/Review of Systems Vital Signs Vitals Vital Signs Date Temp Pulse Resp B/P (MAP) Pulse Ox O2 O2 Flow FiO2 Time Delivery Rate 11/23/18 98.8 11:08 11/23/18 88 16 115/45 96 08:33 (68) 11/22/18 Room Air 14:04 Intake and Output 11/22/18 11/22/18 11/23/18 1515:00 23:00 07:00 IntakeIntake Total 50 ml OutputOutput Total 1700 ml BalanceBalance -1700 ml 50 ml Exam ENERAL: The patient is sleepy HEENT: Pupils equal, round, reactive to light. NECK: Supple. HEART: Regular rate and rhythm. LUNGS: Clear to auscultate bilaterally. CARDIOVASCULAR: Patient has a left IJ in place. Rt arm s/p I and d WRAPPED EXTREMITIES: No clubbing, cyanosis, or edema. Medications Medications Current Medications IV Flush (NS 3 ml) 3 ml PER PROTOCOL IV ; Start 11/16/18 at 09:00 Ondansetron HCl (Zofran Inj) 4 mg Q6H PRN IV NAUSEA AND/OR VOMITING; Start 11/16/18 at 09:00 Acetaminophen (Tylenol Tab) 650 mg Q6H PRN PO PAIN LEVEL 1-3 OR FEVER Last administered on 11/23/18at 09:52; Admin Dose 650 MG; Start 11/16/18 at 09:00 Docusate Sodium (Colace) 100 mg Q12H PRN PO CONSTIPATION; Start 11/16/18 at 09:00 Magnesium Hydroxide (Milk Of Mag) 30 ml DAILY PRN PO CONSTIPATION; Start 11/16/18 at 09:00 Folic Acid (Folic Acid) 1 mg DAILY GTB Last administered on 11/23/18at 09:52; Admin Dose 1 MG; Start 11/16/18 at 09:00 Albuterol/ Ipratropium (Duoneb) 3 ml Q6 PRN HHN sob; Start 11/16/18 at 09:00 Linagliptin (Tradjenta) 5 mg DAILY GTB Last administered on 11/23/18at 09:58; Admin Dose 5 MG; Start 11/16/18 at 09:00 Lorazepam (Ativan) 1 mg HS PRN GTB ANXIETY Last administered on 11/22/18at 21:31; Admin Dose 1 MG; Start 11/16/18 at 09:00 Quetiapine Fumarate (Seroquel) 25 mg BID GTB Last administered on 11/23/18 09:52; Admin Dose 25 MG; Start 11/16/18 at 09:00 Senna (Senokot) 1 tab BID PO Last administered on 11/23/18 09:52; Admin Dose 1 TAB; Start 11/16/18 at 09:00 Sevelamer Carbonate (Renvela) 0.8 gm WITH MEALS PO Last administered on 11/23/18 12:17; Admin Dose 0.8 GM; Start 11/16/18 at 11:30 Valproate Sodium (Depakene Liquid Cup) 250 mg Q8 PO Last administered on 11/23/18 06:19; Admin Dose 250 MG; Start 11/16/18 at 14:00 Sodium Chloride (NS) -To prime the dialy... DIRECTED FOR HD PRN IV SBP<90; Start 11/16/18 at 15:00 Hydralazine HCl (Apresoline) 10 mg Q4H PRN IV ELEVATED BLOOD PRESSURE Last administered on 11/17/18 14:57; Admin Dose 10 MG; Start 11/17/18 at 10:30 Acetaminophen/ Hydrocodone Bitart ([place] (5/325)) 1 tab Q3H PRN PO MODERATE PAIN LEVEL 4-6 Last administered on 11/22/18 17:07; Admin Dose 1 TAB; Start 11/17/18 at 14:30 Hydralazine HCl (Apresoline) 25 mg Q8 PO Last administered on 11/22/18 21:31; Admin Dose 25 MG; Start 11/18/18 at 06:00 Metoprolol Tartrate (Lopressor) 50 mg BID GTB Last administered on 11/23/18 09:53; Admin Dose 50 MG; Start 11/18/18 at 09:00 Albumin Human 50 ml @ 100 mls/hr WITH DIALYSIS PRN IV SBP<90 Last administered on 11/22/18 11:25; Admin Dose 100 MLS/HR; Start 11/18/18 at 14:30 Morphine Sulfate (morphine) 6 mg Q4H PRN PO SEVERE PAIN LEVEL 7-10 Last administered on 11/22/18 02:16; Admin Dose 6 MG; Start 11/18/18 at 23:00 Docusate Sodium (Colace Liquid Cup) 100 mg DAILY GTB Last administered on 1 /15/19at 09:52; Admin Dose 100 MG; Start 11/19/18 at 09:30 Guaifenesin/ Dextromethorphan (Robitussin Dm Liquid Cup) 5 ml Q4H PRN PO cough Last administered on 11/20/18at 17:33; Admin Dose 5 ML; Start 11/20/18 at 14:00 Lansoprazole (Prevacid) 30 mg BID@0600,1800 GTB Last administered on 11/23/18at 06:19; Admin Dose 30 MG; Start 11/21/18 at 18:00 Amlodipine Besylate (Norvasc) 2.5 mg BID GTB Last administered on 11/23/18at 09:53; Admin Dose 2.5 MG; Start 11/22/18 at 21:00 Vancomycin HCl (Vanco Iv Per Pharmacy) VANCOMYCIN PER PHARMACY PER PROTOCOL XX ; Start 11/23/18 at 12:00 Vancomycin/Sodium Chloride 250 ml @ 125 mls/hr ONCE IVPB Last administered on 11/23/18at 13:55; Admin Dose 125 MLS/HR; Start 11/23/18 at 13:30; Stop 11/23/18 at 20:00 Meropenem/Sodium Chloride 50 ml @ 100 mls/hr Q24H IVPB ; Start 11/24/18 at 13:00 JOSE RAUL ANDREWS MD Nov 23, 2018 14:36
[2018-11-23 14:37] VITALS: BP 99/48; PULSE 77; RESP 18
[2018-11-23 20:00] VITALS: BP 135/56; PULSE 82; RESP 18
[2018-11-23] MEDS: GUAIFENESIN/DM 5ML CUP PO PRN (21:50)
[2018-11-24] VITALS (18 sets, daily range): BP systolic 58–132; BP diastolic 45–97; PULSE 78–99; RESP 17–20
[2018-11-24] MEDS: VALPROIC ACID LIQUID CUP 250 MG/5 ML CUP PO SCH ×3 (06:43→20:18)
[2018-11-24] MEDS: LANSOPRAZOLE 30 MG CAP GTB SCH ×2 (06:45→17:42)
[2018-11-24] MEDS: FOLIC ACID 1 MG TAB GTB SCH (08:24)
[2018-11-24] MEDS: SENNA TAB PO SCH ×2 (08:24→20:17)
[2018-11-24] MEDS: SEVELAMER CARBONATE 0.8 GM PKT PO SCH ×3 (08:24→17:42)
[2018-11-24] MEDS: QUETIAPINE 25 MG TAB GTB SCH ×2 (08:25→20:17)
[2018-11-24] MEDS: DOCUSATE SODIUM 10 MG/ML (10ML CUP) GTB SCH (08:25)
[2018-11-24] MEDS: MULTIVIT/CA CARB/B CMPLX/FA TAB GTB SCH (08:26)
[2018-11-24] MEDS: LINAGLIPTIN 5 MG TABLET GTB SCH (08:34)
--- NOTE | 2018-11-24 08:45 | CONS ---
Date/Time of Note Date/Time of Note DATE: 11/24/18 TIME: 08:44 Consult Date/Type/Reason Admit Date/Time Nov 16, 2018 at 05:51 Initial Consult Date 11/16/18 Type of Consultation: cv Requesting Provider: DYLON WALLS MD Subjective Cardiology follow up note Sl DW/ Staff pt is still getting confused and agitated and yelling/screaming. no report of any chest pain or pressure or palpitations but pt is a very poor historian s/p I/D 11/17 EGD 11.18.18 O: General: Elderly frail male in no acute distress HEENT: NC/AT. pupils are equal. round. NECK: NO JVD. no stridor. CV: RRR. systolic murmur; no gallop or rubs. PULM: no wheezing or rhonchi. GI: SOFT, NT, ND, no rebound or guarding Extremity: Right upper extremity is covered with dressing neuro: Awake and agitated Psych: Agitated rectal: deferred CXR 11/22: 1. Left lung interstitial opacities may reflect edema or pneumonia. Findings are new when compared to the prior examination. 2. Mild cardiomegaly and aortic atherosclerosis. 3. Left chest Perma-Cath with tip in the lower SVC. review of old chart shows ECHO done Oct 2018: Normal left ventricular systolic function. Normal left ventricular cavity size. Moderate concentric left ventricular hypertrophy. Ejection fraction is visually estimated at 65 %. Abnormal Diastolic Function. Mitral valve leaflets appear moderately thickened. Moderate mitral annular calcification. Trace mitral regurgitation. Aortic valve not well visualized. No hemodynamically significant aortic stenosis by doppler. Aortic sclerosis without significant stenosis. Aortic cusps appear mildly calcified. Mild to moderate aortic valve regurgitation. Estimated peak PA systolic pressure 40 mmHg. Tricuspid valve appears moderately thickened. There is mild tricuspid regurgitation. ECG 11/16/18: NSR no ischemia Objective Vital Signs Date Temp Pulse Resp B/P (MAP) Pulse Ox O2 O2 Flow FiO2 Time Delivery Rate 11/24/18 98.0 78 20 132/62 96 02:04 (85) 11/22/18 Room Air 14:04 Intake and Output 11/23/18 11/23/18 11/24/18 1515:00 23:00 07:00 IntakeIntake Total 50 ml 530 ml 240 ml OutputOutput Total 0 ml BalanceBalance 50 ml 530 ml 240 ml Results/Medications Result Diagram: 11/24/18 0540 11/24/18 0540 Results 24 hrs Laboratory Tests Test 11/23/18 09:58 11/24/18 05:40 11/24/18 08:30 Bedside Glucose 150 150 White Blood Count 11.9 #H Red Blood Count 2.82 L Hemoglobin 7.9 L Hematocrit 24.7 L Mean Corpuscular Volume 87.6 Mean Corpuscular Hemoglobin 28.0 L Mean Corpuscular Hemoglobin Concent 32.0 Red Cell Distribution Width 16.6 H Platelet Count 192 Mean Platelet Volume 11.3 H Immature Granulocytes % 0.900 H Neutrophils % 76.9 Lymphocytes % 10.3 L Monocytes % 9.3 Eosinophils % 2.4 Basophils % 0.2 Nucleated Red Blood Cells % 0.3 H Immature Granulocytes # 0.110 H Neutrophils # 9.2 H Lymphocytes # 1.2 Monocytes # 1.1 H Eosinophils # 0.3 Basophils # 0.0 Nucleated Red Blood Cells # 0.0 Sodium Level 141 Potassium Level 3.6 Chloride Level 100 Carbon Dioxide Level 29 Anion Gap 12 Blood Urea Nitrogen 49 #H Creatinine 2.73 H Est Glomerular Filtrat Rate mL/min Glucose Level 123 Calcium Level 8.6 Phosphorus Level 2.2 L Magnesium Level 2.4 Medications Current Medications IV Flush (NS 3 ml) 3 ml PER PROTOCOL IV ; Start 11/16/18 at 09:00 Ondansetron HCl (Zofran Inj) 4 mg Q6H PRN IV NAUSEA AND/OR VOMITING; Start 11/16/18 at 09:00 Acetaminophen (Tylenol Tab) 650 mg Q6H PRN PO PAIN LEVEL 1-3 OR FEVER Last administered on 11/23/18at 09:52; Admin Dose 650 MG; Start 11/16/18 at 09:00 Docusate Sodium (Colace) 100 mg Q12H PRN PO CONSTIPATION; Start 11/16/18 at 09:00 Magnesium Hydroxide (Milk Of Mag) 30 ml DAILY PRN PO CONSTIPATION; Start 11/16/18 at 09:00 Folic Acid (Folic Acid) 1 mg DAILY GTB Last administered on 11/24/18at 08:24; Admin Dose 1 MG; Start 11/16/18 at 09:00 Albuterol/ Ipratropium (Duoneb) 3 ml Q6 PRN HHN sob; Start 11/16/18 at 09:00 Linagliptin (Tradjenta) 5 mg DAILY GTB Last administered on 11/24/18 08:34; Admin Dose 5 MG; Start 11/16/18 at 09:00 Lorazepam (Ativan) 1 mg HS PRN GTB ANXIETY Last administered on 11/22/18 21:31; Admin Dose 1 MG; Start 11/16/18 at 09:00 Quetiapine Fumarate (Seroquel) 25 mg BID GTB Last administered on 11/24/18 08:25; Admin Dose 25 MG; Start 11/16/18 at 09:00 Senna (Senokot) 1 tab BID PO Last administered on 11/24/18 08:24; Admin Dose 1 TAB; Start 11/16/18 at 09:00 Sevelamer Carbonate (Renvela) 0.8 gm WITH MEALS PO Last administered on 11/24/18 08:24; Admin Dose 0.8 GM; Start 11/16/18 at 11:30 Valproate Sodium (Depakene Liquid Cup) 250 mg Q8 PO Last administered on 11/24/18 06:43; Admin Dose 250 MG; Start 11/16/18 at 14:00 Sodium Chloride (NS) -To prime the dialy... DIRECTED FOR HD PRN IV SBP<90; Start 11/16/18 at 15:00 Hydralazine HCl (Apresoline) 10 mg Q4H PRN IV ELEVATED BLOOD PRESSURE Last administered on 11/17/18 14:57; Admin Dose 10 MG; Start 11/17/18 at 10:30 Acetaminophen/ Hydrocodone Bitart ([place] (5/325)) 1 tab Q3H PRN PO MODERATE PAIN LEVEL 4-6 Last administered on 11/22/18 17:07; Admin Dose 1 TAB; Start 11/17/18 at 14:30 Hydralazine HCl (Apresoline) 25 mg Q8 PO Last administered on 11/23/18 21:50; Admin Dose 25 MG; Start 11/18/18 at 06:00 Metoprolol Tartrate (Lopressor) 50 mg BID GTB Last administered on 11/23/18 20:48; Admin Dose 50 MG; Start 11/18/18 at 09:00 Albumin Human 50 ml @ 100 mls/hr WITH DIALYSIS PRN IV SBP<90 Last administered on 11/22/18 11:25; Admin Dose 100 MLS/HR; Start 11/18/18 at 14:30 Morphine Sulfate (morphine) 6 mg Q4H PRN PO SEVERE PAIN LEVEL 7-10 Last administered on 11/22/18 02:16; Admin Dose 6 MG; Start 11/18/18 at 23:00 Docusate Sodium (Colace Liquid Cup) 100 mg DAILY GTB Last administered on 11/24/18 08:25; Admin Dose 100 MG; Start 11/19/18 at 09:30 Guaifenesin/ Dextromethorphan (Robitussin Dm Liquid Cup) 5 ml Q4H PRN PO cough Last administered on 11/23/18 21:50; Admin Dose 5 ML; Start 11/20/18 at 14:00 Lansoprazole (Prevacid) 30 mg BID@0600,1800 GTB Last administered on 11/24/18 06:45; Admin Dose 30 MG; Start 11/21/18 at 18:00 Amlodipine Besylate (Norvasc) 2.5 mg BID GTB Last administered on 11/23/18 20:46; Admin Dose 2.5 MG; Start 11/22/18 at 21:00 Vancomycin HCl (Vanco Iv Per Pharmacy) VANCOMYCIN PER PHARMACY PER PROTOCOL XX ; Start 11/23/18 at 12:00 Meropenem/Sodium Chloride 50 ml @ 100 mls/hr Q24H IVPB ; Start 11/24/18 at 13:00 Multivit/Ca Carb/ B Cmplx/FA/Prenat ([place]na-Roque) 1 tab DAILY GTB Last administered on 11/24/18 08:26; Admin Dose 1 TAB; Start 11/24/18 at 09:00 Assessment/Plan Chief Complaint/Hosp Course Cardiovascular preop evaluation Right hand hematoma: Status post IND now Renal failure on dialysis Hypertension Dementia Anemia Possible GI bleed: Status post EGD AI Recommendations: transfusion with HD prn Dialysis as per renal team Neuro workup and treatment as per internal medicine Thank you for his referral. We will continue to follow along with you as needed CHRISTEN ESCOBEDO MD [facility] CHRISTEN ESCOBEDO MD Nov 24, 2018 08:45
[2018-11-24] MEDS: METOPROLOL 50 MG TAB GTB SCH ×2 (09:00→20:18)
[2018-11-24] MEDS: AMLODIPINE 2.5 MG TAB GTB SCH ×2 (09:00→20:18)
[2018-11-24] MEDS: ACETAMINOPHEN 325 MG TAB PO PRN ×2 (10:57→20:19)
--- NOTE | 2018-11-24 11:25 | PN ---
Date/Time of Note Date/Time of Note DATE: 11/24/18 TIME: 11:24 Assessment/Plan VTE Prophylaxis Risk score (from Nsg)>0 risk: 6 SCD applied (from Nsg): Yes Pharmacological prophylaxis: NA/contraindicated Pharm contraindication: bleeding Lines/Catheters IV Catheter Type (from Nrsg): Saline Lock Urinary Cath still in place: No Assessment/Plan Hospital Course 83 yo female in ESRD on HD presents for melena and anemia and also found to have edematous Rt hand/wrist 1. UGIB manifested through melena and anemia -no melena noted or GI bleeding noted by nursing staff 2. Anemia, acute on chronic, acute likely due to blood loss in rt hand -Hgb 6.8->10.6->9.2->8.3 -No evidence of active GI bleeding, consider etiology of blood loss anemia to be from hematoma in hand -s/p 2 units with HD on 11/17 -Fe wnl, TIBC low, Ferritin, folate, b12 high, FOB neg 3. ESRD on HD -receiving HD currently 4. Hematoma of Rt hand and wrist -I and D drainage by Dr. Dean 11/17 5. Dysphagia -on tube feeds and pureed nectar for oral gratification 6. DM2 7. HTN 8. H/O diastolic dysfunction heart failure 9. S/P EGD 11/18 10. Moderate gastritis with no bleeding noted. 11. Hospital acquired pneumonia- concern for aspiration Gastric biopsy results: Stomach, biopsy: -- Antral and oxyntic mucosa showing minimal plasma cell infiltration and small focus of intestinal metaplasia. -- No Helicobacter pylori is identified in Giemsa stain (positive control conc urrently reviewed). -- No evidence of dysplasia or malignancy. Plan: Cont abx Continue present care Monitor HH closely and for active GI bleeding PPI BID Pt examined and plan of care discussed with Dr. Baird Result Diagram: 11/24/18 0540 11/24/18 0540 Results 24hrs Laboratory Tests Test 11/24/18 05:40 11/24/18 08:30 White Blood Count 11.9 #H Red Blood Count 2.82 L Hemoglobin 7.9 L Hematocrit 24.7 L Mean Corpuscular Volume 87.6 Mean Corpuscular Hemoglobin 28.0 L Mean Corpuscular Hemoglobin Concent 32.0 Red Cell Distribution Width 16.6 H Platelet Count 192 Mean Platelet Volume 11.3 H Immature Granulocytes % 0.900 H Neutrophils % 76.9 Lymphocytes % 10.3 L Monocytes % 9.3 Eosinophils % 2.4 Basophils % 0.2 Nucleated Red Blood Cells % 0.3 H Immature Granulocytes # 0.110 H Neutrophils # 9.2 H Lymphocytes # 1.2 Monocytes # 1.1 H Eosinophils # 0.3 Basophils # 0.0 Nucleated Red Blood Cells # 0.0 Sodium Level 141 Potassium Level 3.6 Chloride Level 100 Carbon Dioxide Level 29 Anion Gap 12 Blood Urea Nitrogen 49 #H Creatinine 2.73 H Est Glomerular Filtrat Rate mL/min Glucose Level 123 Calcium Level 8.6 Phosphorus Level 2.2 L Magnesium Level 2.4 Bedside Glucose 150 Subjective 24 Hr Interval Summary Free Text/Dictation No evidence of GI bleeding. Last bm 11/21. No N/V. No abd pain. Pt has been febrile. Exam/Review of Systems Vital Signs Vitals Vital Signs Date Temp Pulse Resp B/P (MAP) Pulse Ox O2 O2 Flow FiO2 Time Delivery Rate 11/24/18 100.8 10:57 11/24/18 128/60 98 08:20 (82) 11/24/18 78 02:04 11/22/18 Room Air 14:04 Intake and Output 11/23/18 11/23/18 11/24/18 1515:00 23:00 07:00 IntakeIntake Total 50 ml 530 ml 240 ml OutputOutput Total 0 ml BalanceBalance 50 ml 530 ml 240 ml Exam Constitutional: alert, oriented Psych: no complaints Eyes: nl sclera, PERRL Gastrointestinal: soft, non-tender 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: confused Medications Medications Current Medications IV Flush (NS 3 ml) 3 ml PER PROTOCOL IV ; Start 11/16/18 at 09:00 Ondansetron HCl (Zofran Inj) 4 mg Q6H PRN IV NAUSEA AND/OR VOMITING; Start 11/16/18 at 09:00 Acetaminophen (Tylenol Tab) 650 mg Q6H PRN PO PAIN LEVEL 1-3 OR FEVER Last administered on 11/24/18at 10:57; Admin Dose 650 MG; Start 11/16/18 at 09:00 Docusate Sodium (Colace) 100 mg Q12H PRN PO CONSTIPATION; Start 11/16/18 at 09:00 Magnesium Hydroxide (Milk Of Mag) 30 ml DAILY PRN PO CONSTIPATION; Start 11/16/18 at 09:00 Folic Acid (Folic Acid) 1 mg DAILY GTB Last administered on 11/24/18 08:24; Admin Dose 1 MG; Start 11/16/18 at 09:00 Albuterol/ Ipratropium (Duoneb) 3 ml Q6 PRN HHN sob; Start 11/16/18 at 09:00 Linagliptin (Tradjenta) 5 mg DAILY GTB Last administered on 11/24/18 08:34; Admin Dose 5 MG; Start 11/16/18 at 09:00 Lorazepam (Ativan) 1 mg HS PRN GTB ANXIETY Last administered on 11/22/18 21:31; Admin Dose 1 MG; Start 11/16/18 at 09:00 Quetiapine Fumarate (Seroquel) 25 mg BID GTB Last administered on 11/24/18 08:25; Admin Dose 25 MG; Start 11/16/18 at 09:00 Senna (Senokot) 1 tab BID PO Last administered on 11/24/18 08:24; Admin Dose 1 TAB; Start 11/16/18 at 09:00 Sevelamer Carbonate (Renvela) 0.8 gm WITH MEALS PO Last administered on 11/09 08:24; Admin Dose 0.8 GM; Start 11/16/18 at 11:30 Valproate Sodium (Depakene Liquid Cup) 250 mg Q8 PO Last administered on 11/24/18 06:43; Admin Dose 250 MG; Start 11/16/18 at 14:00 Sodium Chloride (NS) -To prime the dialy... DIRECTED FOR HD PRN IV SBP<90; Start 11/16/18 at 15:00 Hydralazine HCl (Apresoline) 10 mg Q4H PRN IV ELEVATED BLOOD PRESSURE Last administered on 11/17/18 14:57; Admin Dose 10 MG; Start 11/17/18 at 10:30 Acetaminophen/ Hydrocodone Bitart ([place] (5/325)) 1 tab Q3H PRN PO MODERATE PAIN LEVEL 4-6 Last administered on 11/22/18 17:07; Admin Dose 1 TAB; Start 11/17/18 at 14:30 Hydralazine HCl (Apresoline) 25 mg Q8 PO Last administered on 11/23/18 21:50; Admin Dose 25 MG; Start 11/18/18 at 06:00 Metoprolol Tartrate (Lopressor) 50 mg BID GTB Last administered on 11/23/18 20:48; Admin Dose 50 MG; Start 11/18/18 at 09:00 Albumin Human 50 ml @ 100 mls/hr WITH DIALYSIS PRN IV SBP<90 Last administered on 11/22/18 11:25; Admin Dose 100 MLS/HR; Start 11/18/18 at 14:30 Morphine Sulfate (morphine) 6 mg Q4H PRN PO SEVERE PAIN LEVEL 7-10 Last administered on 11/22/18 02:16; Admin Dose 6 MG; Start 11/18/18 at 23:00 Docusate Sodium (Colace Liquid Cup) 100 mg DAILY GTB Last administered on 11/24/18 08:25; Admin Dose 100 MG; Start 11/19/18 at 09:30 Guaifenesin/ Dextromethorphan (Robitussin Dm Liquid Cup) 5 ml Q4H PRN PO cough Last administered on 11/23/18 21:50; Admin Dose 5 ML; Start 11/20/18 at 14:00 Lansoprazole (Prevacid) 30 mg BID@0600,1800 GTB Last administered on 11/24/18 06:45; Admin Dose 30 MG; Start 11/21/18 at 18:00 Amlodipine Besylate (Norvasc) 2.5 mg BID GTB Last administered on 11/23/18 20:46; Admin Dose 2.5 MG; Start 11/22/18 at 21:00 Vancomycin HCl (Vanco Iv Per Pharmacy) VANCOMYCIN PER PHARMACY PER PROTOCOL XX ; Start 11/23/18 at 12:00 Meropenem/Sodium Chloride 50 ml @ 100 mls/hr Q24H IVPB ; Start 11/24/18 at 13:00 Multivit/Ca Carb/ B Cmplx/FA/Prenat (Kianna-Roque) 1 tab DAILY GTB Last administered on 11/24/18 08:26; Admin Dose 1 TAB; Start 11/24/18 at 09:00 TONY VENCES Nov 24, 2018 11:25
--- NOTE | 2018-11-24 13:46 | CONS ---
Date/Time of Note Date/Time of Note DATE: 11/24/18 TIME: 13:45 Assessment/Plan Assessment/Plan Hospital Course Patient is in hemodialysis. Looks comfortable. She spiked fever of 100.8. Blood cultures were sent. Antimicrobials: Vancomycin, meropenem Chest x-ray 11/23/18 revealed left lung interstitial opacities questionable edema versus pneumonia. Findings are new Indwelling: Left chest permacath, PEG Physical examination: Chronically ill-appearing elderly woman who is awake, confused, in no distress. Head atraumatic normocephalic. Neck is supple. Chest rise symmetrical breath sounds diminished bases. Heart: S1-S2. Abdomen soft bowel sounds present, right upper extremity Armani wrapped Assessment: 1. Healthcare associated pneumonia, possibly aspiration 2. Right hand hematoma, status post I&D 11/17/18 3. Status post VRE bacteremia, status post new Pcath 4. End-stage renal disease, hemodialysis dependent 5. Dementia 6. Failure to thrive 7. Diabetes 8. Anemia Plan: Clinically unchanged, started on broad-spectrum antibiotics yesterday for concern of pneumonia, still ongoing fevers, pending repeat blood cultures Result Diagram: 11/24/18 0540 11/24/18 0540 Results 24hrs Laboratory Tests Test 11/24/18 05:40 11/24/18 08:30 White Blood Count 11.9 #H Red Blood Count 2.82 L Hemoglobin 7.9 L Hematocrit 24.7 L Mean Corpuscular Volume 87.6 Mean Corpuscular Hemoglobin 28.0 L Mean Corpuscular Hemoglobin Concent 32.0 Red Cell Distribution Width 16.6 H Platelet Count 192 Mean Platelet Volume 11.3 H Immature Granulocytes % 0.900 H Neutrophils % 76.9 Lymphocytes % 10.3 L Monocytes % 9.3 Eosinophils % 2.4 Basophils % 0.2 Nucleated Red Blood Cells % 0.3 H Immature Granulocytes # 0.110 H Neutrophils # 9.2 H Lymphocytes # 1.2 Monocytes # 1.1 H Eosinophils # 0.3 Basophils # 0.0 Nucleated Red Blood Cells # 0.0 Sodium Level 141 Potassium Level 3.6 Chloride Level 100 Carbon Dioxide Level 29 Anion Gap 12 Blood Urea Nitrogen 49 #H Creatinine 2.73 H Est Glomerular Filtrat Rate mL/min Glucose Level 123 Calcium Level 8.6 Phosphorus Level 2.2 L Magnesium Level 2.4 Bedside Glucose 150 Consultation Date/Type/Reason Admit Date/Time Nov 16, 2018 at 05:51 Initial Consult Date 11/16/18 Type of Consult id Requesting Provider: DYLON WALLS MD Exam/Review of Systems Vital Signs Vitals Vital Signs Date Temp Pulse Resp B/P (MAP) Pulse Ox O2 O2 Flow FiO2 Time Delivery Rate 11/24/18 91 13:20 11/24/18 17 109/48 98 Room Air 11:50 (68) 11/24/18 99.0 11:42 Intake and Output 11/23/18 11/23/18 11/24/18 1515:00 23:00 07:00 IntakeIntake Total 50 ml 530 ml 240 ml OutputOutput Total 0 ml BalanceBalance 50 ml 530 ml 240 ml Medications Medications Current Medications IV Flush (NS 3 ml) 3 ml PER PROTOCOL IV ; Start 11/16/18 at 09:00 Ondansetron HCl (Zofran Inj) 4 mg Q6H PRN IV NAUSEA AND/OR VOMITING; Start 11/16/18 at 09:00 Acetaminophen (Tylenol Tab) 650 mg Q6H PRN PO PAIN LEVEL 1-3 OR FEVER Last administered on 11/24/18at 10:57; Admin Dose 650 MG; Start 11/16/18 at 09:00 Docusate Sodium (Colace) 100 mg Q12H PRN PO CONSTIPATION; Start 11/16/18 at 09:00 Magnesium Hydroxide (Milk Of Mag) 30 ml DAILY PRN PO CONSTIPATION; Start 11/16/18 at 09:00 Folic Acid (Folic Acid) 1 mg DAILY GTB Last administered on 11/24/18at 08:24; Admin Dose 1 MG; Start 11/16/18 at 09:00 Albuterol/ Ipratropium (Duoneb) 3 ml Q6 PRN HHN sob; Start 11/16/18 at 09:00 Linagliptin (Tradjenta) 5 mg DAILY GTB Last administered on 11/24/18at 08:34; Admin Dose 5 MG; Start 11/16/18 at 09:00 Lorazepam (Ativan) 1 mg HS PRN GTB ANXIETY Last administered on 11/22/18at 21:31; Admin Dose 1 MG; Start 11/16/18 at 09:00 Quetiapine Fumarate (Seroquel) 25 mg BID GTB Last administered on 1/16/19at 08:25; Admin Dose 25 MG; Start 11/16/18 at 09:00 Senna (Senokot) 1 tab BID PO Last administered on 11/24/18 08:24; Admin Dose 1 TAB; Start 11/16/18 at 09:00 Sevelamer Carbonate (Renvela) 0.8 gm WITH MEALS PO Last administered on 11/24/18 08:24; Admin Dose 0.8 GM; Start 11/16/18 at 11:30 Valproate Sodium (Depakene Liquid Cup) 250 mg Q8 PO Last administered on 11/24/18 06:43; Admin Dose 250 MG; Start 11/16/18 at 14:00 Sodium Chloride (NS) -To prime the dialy... DIRECTED FOR HD PRN IV SBP<90; Start 11/16/18 at 15:00 Hydralazine HCl (Apresoline) 10 mg Q4H PRN IV ELEVATED BLOOD PRESSURE Last administered on 11/17/18 14:57; Admin Dose 10 MG; Start 11/17/18 at 10:30 Acetaminophen/ Hydrocodone Bitart ([place] (5/325)) 1 tab Q3H PRN PO MODERATE PAIN LEVEL 4-6 Last administered on 11/22/18 17:07; Admin Dose 1 TAB; Start 11/17/18 at 14:30 Hydralazine HCl (Apresoline) 25 mg Q8 PO Last administered on 11/23/18 21:50; Admin Dose 25 MG; Start 11/18/18 at 06:00 Metoprolol Tartrate (Lopressor) 50 mg BID GTB Last administered on 11/23/18 20:48; Admin Dose 50 MG; Start 11/18/18 at 09:00 Albumin Human 50 ml @ 100 mls/hr WITH DIALYSIS PRN IV SBP<90 Last administered on 11/22/18 11:25; Admin Dose 100 MLS/HR; Start 11/18/18 at 14:30 Morphine Sulfate (morphine) 6 mg Q4H PRN PO SEVERE PAIN LEVEL 7-10 Last administered on 11/22/18 02:16; Admin Dose 6 MG; Start 11/18/18 at 23:00 Docusate Sodium (Colace Liquid Cup) 100 mg DAILY GTB Last administered on 11/24/18 08:25; Admin Dose 100 MG; Start 11/19/18 at 09:30 Guaifenesin/ Dextromethorphan (Robitussin Dm Liquid Cup) 5 ml Q4H PRN PO cough Last administered on 11/23/18at 21:50; Admin Dose 5 ML; Start 11/20/18 at 14:00 Lansoprazole (Prevacid) 30 mg BID@0600,1800 GTB Last administered on 11/24/18at 06:45; Admin Dose 30 MG; Start 11/21/18 at 18:00 Amlodipine Besylate (Norvasc) 2.5 mg BID GTB Last administered on 11/23/18at 20:46; Admin Dose 2.5 MG; Start 11/22/18 at 21:00 Vancomycin HCl (Vanco Iv Per Pharmacy) VANCOMYCIN PER PHARMACY PER PROTOCOL XX ; Start 11/23/18 at 12:00 Meropenem/Sodium Chloride 50 ml @ 100 mls/hr Q24H IVPB ; Start 11/24/18 at 13:00 Multivit/Ca Carb/ B Cmplx/FA/Prenat ([place]ianna-Roque) 1 tab DAILY GTB Last administered on 11/24/18at 08:26; Admin Dose 1 TAB; Start 11/24/18 at 09:00 PHYLICIA HOLCOMB NP Nov 24, 2018 13:46
--- NOTE | 2018-11-24 14:45 | CONS ---
Date/Time of Note Date/Time of Note DATE: 11/24/18 TIME: 14:42 Assessment/Plan Assessment/Plan Hospital Course 83 y/o with 1. Right hand swelling, likely secondary to hematoma, questionable fall. with compression s/p I and D on 11/17/18 2. Gastrointestinal bleed with melena. 3. Hypertension. 4. Diabetes. 5. End-stage renal disease on hemodialysis. 6. History of falls. 7. Vascular dementia.with AMS 8. History of sepsis with VRE. 9. Dysphagia, status post G-tube. 10. History of hip fracture. 11. Thrombocytopenia. 12. Atherosclerotic heart disease. 13 ongoing fevers questionable pneumonia Plan - HD today -Also send blood cultures from permacath - Restarted abx on vancomycin/meropenem - Monitor fevers - Hold BP meds before hd - renally dose all meds Result Diagram: 11/24/18 0540 11/24/18 0540 Results 24hrs Laboratory Tests Test 11/24/18 05:40 11/24/18 08:30 White Blood Count 11.9 #H Red Blood Count 2.82 L Hemoglobin 7.9 L Hematocrit 24.7 L Mean Corpuscular Volume 87.6 Mean Corpuscular Hemoglobin 28.0 L Mean Corpuscular Hemoglobin Concent 32.0 Red Cell Distribution Width 16.6 H Platelet Count 192 Mean Platelet Volume 11.3 H Immature Granulocytes % 0.900 H Neutrophils % 76.9 Lymphocytes % 10.3 L Monocytes % 9.3 Eosinophils % 2.4 Basophils % 0.2 Nucleated Red Blood Cells % 0.3 H Immature Granulocytes # 0.110 H Neutrophils # 9.2 H Lymphocytes # 1.2 Monocytes # 1.1 H Eosinophils # 0.3 Basophils # 0.0 Nucleated Red Blood Cells # 0.0 Sodium Level 141 Potassium Level 3.6 Chloride Level 100 Carbon Dioxide Level 29 Anion Gap 12 Blood Urea Nitrogen 49 #H Creatinine 2.73 H Est Glomerular Filtrat Rate mL/min Glucose Level 123 Calcium Level 8.6 Phosphorus Level 2.2 L Magnesium Level 2.4 Bedside Glucose 150 Consultation Date/Type/Reason Admit Date/Time Nov 16, 2018 at 05:51 Initial Consult Date 11/16/18 Requesting Provider: DYLON WALLS MD 24 HR Interval Summary Free Text/Dictation Still having fevers 100.8 Exam/Review of Systems Vital Signs Vitals Vital Signs Date Temp Pulse Resp B/P (MAP) Pulse Ox O2 O2 Flow FiO2 Time Delivery Rate 11/24/18 92 17 115/67 98 Room Air 14:19 (83) 11/24/18 99.0 11:42 Intake and Output 11/23/18 11/23/18 11/24/18 1515:00 23:00 07:00 IntakeIntake Total 50 ml 530 ml 240 ml OutputOutput Total 0 ml BalanceBalance 50 ml 530 ml 240 ml Exam ENERAL: The patient is sleepy HEENT: Pupils equal, round, reactive to light. NECK: Supple. HEART: Regular rate and rhythm. LUNGS: Clear to auscultate bilaterally. CARDIOVASCULAR: Patient has a left IJ in place. Rt arm s/p I and d WRAPPED EXTREMITIES: No clubbing, cyanosis, or edema. Medications Medications Current Medications IV Flush (NS 3 ml) 3 ml PER PROTOCOL IV ; Start 11/16/18 at 09:00 Ondansetron HCl (Zofran Inj) 4 mg Q6H PRN IV NAUSEA AND/OR VOMITING; Start 11/16/18 at 09:00 Acetaminophen (Tylenol Tab) 650 mg Q6H PRN PO PAIN LEVEL 1-3 OR FEVER Last administered on 11/24/18at 10:57; Admin Dose 650 MG; Start 11/16/18 at 09:00 Docusate Sodium (Colace) 100 mg Q12H PRN PO CONSTIPATION; Start 11/16/18 at 09:00 Magnesium Hydroxide (Milk Of Mag) 30 ml DAILY PRN PO CONSTIPATION; Start 11/16/18 at 09:00 Folic Acid (Folic Acid) 1 mg DAILY GTB Last administered on 11/24/18at 08:24; Admin Dose 1 MG; Start 11/16/18 at 09:00 Albuterol/ Ipratropium (Duoneb) 3 ml Q6 PRN HHN sob; Start 11/16/18 at 09:00 Linagliptin (Tradjenta) 5 mg DAILY GTB Last administered on 11/24/18at 08:34; Admin Dose 5 MG; Start 11/16/18 at 09:00 Lorazepam (Ativan) 1 mg HS PRN GTB ANXIETY Last administered on 11/22/18at 21:31; Admin Dose 1 MG; Start 11/16/18 at 09:00 Quetiapine Fumarate (Seroquel) 25 mg BID GTB Last administered on 11/24/18 08:25; Admin Dose 25 MG; Start 11/16/18 at 09:00 Senna (Senokot) 1 tab BID PO Last administered on 11/24/18 08:24; Admin Dose 1 TAB; Start 11/16/18 at 09:00 Sevelamer Carbonate (Renvela) 0.8 gm WITH MEALS PO Last administered on 11/24/18 08:24; Admin Dose 0.8 GM; Start 11/16/18 at 11:30 Valproate Sodium (Depakene Liquid Cup) 250 mg Q8 PO Last administered on 9at 06:43; Admin Dose 250 MG; Start 11/16/18 at 14:00 Sodium Chloride (NS) -To prime the dialy... DIRECTED FOR HD PRN IV SBP<90; Start 11/16/18 at 15:00 Hydralazine HCl (Apresoline) 10 mg Q4H PRN IV ELEVATED BLOOD PRESSURE Last administered on 11/17/18 14:57; Admin Dose 10 MG; Start 11/17/18 at 10:30 Acetaminophen/ Hydrocodone Bitart ([place] (5/325)) 1 tab Q3H PRN PO MODERATE PAIN LEVEL 4-6 Last administered on 11/22/18 17:07; Admin Dose 1 TAB; Start 11/17/18 at 14:30 Hydralazine HCl (Apresoline) 25 mg Q8 PO Last administered on 11/23/18 21:50; Admin Dose 25 MG; Start 11/18/18 at 06:00 Metoprolol Tartrate (Lopressor) 50 mg BID GTB Last administered on 11/23/18 20:48; Admin Dose 50 MG; Start 11/18/18 at 09:00 Albumin Human 50 ml @ 100 mls/hr WITH DIALYSIS PRN IV SBP<90 Last administered on 11/22/18 11:25; Admin Dose 100 MLS/HR; Start 11/18/18 at 14:30 Morphine Sulfate (morphine) 6 mg Q4H PRN PO SEVERE PAIN LEVEL 7-10 Last administered on 11/22/18 02:16; Admin Dose 6 MG; Start 11/18/18 at 23:00 Docusate Sodium (Colace Liquid Cup) 100 mg DAILY GTB Last administered on 11/24/18at 08:25; Admin Dose 100 MG; Start 11/19/18 at 09:30 Guaifenesin/ Dextromethorphan (Robitussin Dm Liquid Cup) 5 ml Q4H PRN PO cough Last administered on 11/23/18at 21:50; Admin Dose 5 ML; Start 11/20/18 at 14:00 Lansoprazole (Prevacid) 30 mg BID@0600,1800 GTB Last administered on 11/24/18at 06:45; Admin Dose 30 MG; Start 11/21/18 at 18:00 Amlodipine Besylate (Norvasc) 2.5 mg BID GTB Last administered on 11/23/18at 20:46; Admin Dose 2.5 MG; Start 11/22/18 at 21:00 Vancomycin HCl (Vanco Iv Per Pharmacy) VANCOMYCIN PER PHARMACY PER PROTOCOL XX ; Start 11/23/18 at 12:00 Meropenem/Sodium Chloride 50 ml @ 100 mls/hr Q24H IVPB ; Start 11/24/18 at 13:00 Multivit/Ca Carb/ B Cmplx/FA/Prenat ([place]Ro[place]) 1 tab DAILY GTB Last administered on 11/24/18 08:26; Admin Dose 1 TAB; Start 11/24/18 at 09:00 JOSE RAUL ANDREWS MD Nov 24, 2018 14:45
[2018-11-24] MEDS: MEROPENEM 500MG/50 ML (PMX) 50 ML IVPB SCH (14:52)
--- NOTE | 2018-11-24 18:23 | PN ---
DATE: 11/24/2018 SUBJECTIVE: The patient is seen, currently resting comfortably. The patient continues to have a low -grade temperature of 100.8. The patient was started on broad-spectrum antibiotics for pneumonia as noted on the chest x-ray. The patient may have likely aspirated. This patient is quite challenging. She is combative and does not follow directions, etc. White count increased to 11.9, hemoglobin sl ightly low at 7.9. The patient continues to be monitored closely. PHYSICAL EXAMINATION: VITAL SIGNS: Temperature 99.2, pulse 92, respirations 17, blood pressure 115/67, saturation is 98% o n room air. GENERAL: The patient is in no acute distress. The patient is frail, pale. CARDIOVASCULAR: S1, S2. LUNGS: Decreased bilaterally. Poor effort. ABDOMEN: Soft. G-tube in place. EXTREMITIES: No clubbing or cyanosis. Right hand is covered. LABORATORY DATA: White count increased to 11.9, hemoglobin 7.9, hematocrit 25, platelet count of 192 with normal differential. Chemistry: Sodium 141, potassium 3.6, chloride 100, bicarb 29, BUN is 49 , creatinine 2.73, glucose of 123, phosphorus is slightly low at 2.2. MEDICATIONS: Reviewed, include: 1. Merrem. 2. Kianna-Roque. 3. Vancomycin. 4. Norvasc. 5. Prevacid. 6. Robitussin. 7. Colace. 8. Morphine. 9. Lopressor. 10. Hydralazine. 11. [place]. 12. Depakote. 13. Renvela. 14. Zofran. 15. Tylenol. 16. Milk of Magnesia. 17. Folic acid. 18. DuoNeb. 19. Tradjenta. 20. Ativan. 21. Seroquel. 22. Senna. ASSESSMENT AND PLAN: This is an 83-year-old [place] female with a history of end-stage renal diseas e, dementia, psychiatric disorder, chronic obstructive pulmonary disease, who presented with right lane nd severe hematoma status post possible fall, status post I and D and evacuation of hematoma, unfortu nately now with possible aspiration pneumonia. 1. Respiratory. Continue antibiotics per ID. Follow up chest x-ray within 1 to 2 days. Monitor WB C. Monitor fevers. 2. Cardiovascular. Continue above meds. Vitals are stable. 3. End-stage renal disease. Dialysis 3 times a week. 4. Anxiety, multifactorial. Continue one-to-one sitter due to danger to self and recurrent falls. 5. Dysphagia. Continue G-tube feeding. 6. Diabetes mellitus, controlled with the above treatment plan. Glucose level in the low 100s. 7. Blood cultures were ordered as well and we would follow closely, make sure there is no recurrent line infection. 8. Status post vancomycin-resistant enterococcal bacteremia, now has a new PermCath. 9. Overall prognosis is guarded due to her multiple medical issues and behavioral disturbances. We will follow. Dictated By: DYLON HULL/MADAN Conf#: [id number] DID#: [id number]
[2018-11-24] MEDS: LORAZEPAM 1 MG TAB GTB PRN (20:19)
[2018-11-25] MEDS: morphine LIQ (10 MG/5 ML) CUP PO PRN (00:09)
[2018-11-25 01:43] VITALS: BP 117/86; PULSE 92; RESP 18
[2018-11-25] MEDS: VALPROIC ACID LIQUID CUP 250 MG/5 ML CUP PO SCH ×3 (05:43→22:09)
[2018-11-25] MEDS: LANSOPRAZOLE 30 MG CAP GTB SCH (05:43)
[2018-11-25 08:00] VITALS: BP 130/69; PULSE 69; RESP 17
[2018-11-25] MEDS: SEVELAMER CARBONATE 0.8 GM PKT PO SCH ×3 (08:15→16:53)
[2018-11-25] MEDS: LINAGLIPTIN 5 MG TABLET GTB SCH (08:16)
[2018-11-25] MEDS: DOCUSATE SODIUM 10 MG/ML (10ML CUP) GTB SCH (08:16)
[2018-11-25] MEDS: QUETIAPINE 25 MG TAB GTB SCH ×2 (08:16→20:51)
[2018-11-25] MEDS: AMLODIPINE 2.5 MG TAB GTB SCH ×2 (08:16→20:52)
[2018-11-25] MEDS: SENNA TAB PO SCH ×2 (08:16→20:51)
[2018-11-25] MEDS: MULTIVIT/CA CARB/B CMPLX/FA TAB GTB SCH (08:16)
[2018-11-25] MEDS: FOLIC ACID 1 MG TAB GTB SCH (08:16)
[2018-11-25] MEDS: METOPROLOL 50 MG TAB GTB SCH ×2 (08:17→20:53)
--- NOTE | 2018-11-25 08:37 | CONS ---
Date/Time of Note Date/Time of Note DATE: 11/25/18 TIME: 08:37 Consult Date/Type/Reason Admit Date/Time Nov 16, 2018 at 05:51 Initial Consult Date 11/16/18 Type of Consultation: cv Requesting Provider: DYLON WALLS MD Subjective Cardiology follow up note Sl DW/ Staff pt is still getting confused and agitated and yelling/screaming. no report of any chest pain or pressure or palpitations but pt is a very poor historian s/p I/D 11/17 EGD 11.18.18 O: General: Elderly frail male in no acute distress HEENT: NC/AT. pupils are equal. round. NECK: NO JVD. no stridor. CV: RRR. systolic murmur; no gallop or rubs. PULM: no wheezing or rhonchi. GI: SOFT, NT, ND, no rebound or guarding Extremity: Right upper extremity is covered with dressing neuro: SLEEPING Psych: calm rectal: deferred CXR 11/22: 1. Left lung interstitial opacities may reflect edema or pneumonia. Findings are new when compared to the prior examination. 2. Mild cardiomegaly and aortic atherosclerosis. 3. Left chest Perma-Cath with tip in the lower SVC. review of old chart shows ECHO done Oct 2018: Normal left ventricular systolic function. Normal left ventricular cavity size. Moderate concentric left ventricular hypertrophy. Ejection fraction is visually estimated at 65 %. Abnormal Diastolic Function. Mitral valve leaflets appear moderately thickened. Moderate mitral annular calcification. Trace mitral regurgitation. Aortic valve not well visualized. No hemodynamically significant aortic stenosis by doppler. Aortic sclerosis without significant stenosis. Aortic cusps appear mildly calcified. Mild to moderate aortic valve re gurgitation. Estimated peak PA systolic pressure 40 mmHg. Tricuspid valve appears moderately thickened. There is mild tricuspid regurgitation. ECG 11/16/18: NSR no ischemia Objective Vital Signs Date Temp Pulse Resp B/P (MAP) Pulse Ox O2 O2 Flow FiO2 Time Delivery Rate 11/25/18 97.4 69 17 130/69 94 Room Air 08:00 (89) Intake and Output 11/24/18 11/24/18 11/25/18 1515:00 23:00 07:00 IntakeIntake Total 50 ml OutputOutput Total 401 ml BalanceBalance -401 ml 50 ml Results/Medications Result Diagram: 11/25/1811/25/19 0519 Results 24 hrs Laboratory Tests Test 11/25/18 05:19 11/25/18 08:15 White Blood Count 7.5 # Red Blood Count 2.86 L Hemoglobin 7.8 L Hematocrit 24.9 L Mean Corpuscular Volume 87.1 Mean Corpuscular Hemoglobin 27.3 L Mean Corpuscular Hemoglobin Concent 31.3 L Red Cell Distribution Width 16.5 H Platelet Count 183 Mean Platelet Volume 11.4 H Immature Granulocytes % 1.200 H Neutrophils % 67.0 Lymphocytes % 12.3 L Monocytes % 15.3 H Eosinophils % 3.8 Basophils % 0.4 Nucleated Red Blood Cells % 0.4 H Immature Granulocytes # 0.090 H Neutrophils # 5.1 Lymphocytes # 0.9 Monocytes # 1.2 H Eosinophils # 0.3 Basophils # 0.0 Nucleated Red Blood Cells # 0.0 Sodium Level 136 Potassium Level 3.4 L Chloride Level 99 Carbon Dioxide Level 33 H Anion Gap 4 #L Blood Urea Nitrogen 30 #H Creatinine 1.70 #H Est Glomerular Filtrat Rate mL/min Glucose Level 101 Calcium Level 8.1 L Phosphorus Level 2.0 L Magnesium Level 2.3 Random Vancomycin Level 10.5 Bedside Glucose 101 Medications Current Medications IV Flush (NS 3 ml) 3 ml PER PROTOCOL IV ; Start 11/16/18 at 09:00 Ondansetron HCl (Zofran Inj) 4 mg Q6H PRN IV NAUSEA AND/OR VOMITING; Start 11/16/18 at 09:00 Acetaminophen (Tylenol Tab) 650 mg Q6H PRN PO PAIN LEVEL 1-3 OR FEVER Last administered on 11/24/18at 20:19; Admin Dose 650 MG; Start 11/16/18 at 09:00 Docusate Sodium (Colace) 100 mg Q12H PRN PO CONSTIPATION; Start 11/16/18 at 09:00 Magnesium Hydroxide (Milk Of Mag) 30 ml DAILY PRN PO CONSTIPATION; Start 11/16/18 at 09:00 Folic Acid (Folic Acid) 1 mg DAILY GTB Last administered on 11/25/18at 08:16; Admin Dose 1 MG; Start 11/16/18 at 09:00 Albuterol/ Ipratropium (Duoneb) 3 ml Q6 PRN HHN sob; Start 11/16/18 at 09:00 Linagliptin (Tradjenta) 5 mg DAILY GTB Last administered on 11/25/18 08:16; Admin Dose 5 MG; Start 11/16/18 at 09:00 Lorazepam (Ativan) 1 mg HS PRN GTB ANXIETY Last administered on 11/24/18 20:19; Admin Dose 1 MG; Start 11/16/18 at 09:00 Quetiapine Fumarate (Seroquel) 25 mg BID GTB Last administered on 11/25/18 08:16; Admin Dose 25 MG; Start 11/16/18 at 09:00 Senna (Senokot) 1 tab BID PO Last administered on 11/25/18 08:16; Admin Dose 1 TAB; Start 11/16/18 at 09:00 Sevelamer Carbonate (Renvela) 0.8 gm WITH MEALS PO Last administered on 11/25/18 08:15; Admin Dose 0.8 GM; Start 11/16/18 at 11:30 Valproate Sodium (Depakene Liquid Cup) 250 mg Q8 PO Last administered on 11/25/18at 05:43; Admin Dose 250 MG; Start 11/16/18 at 14:00 Sodium Chloride (NS) -To prime the dialy... DIRECTED FOR HD PRN IV SBP<90; Start 11/16/18 at 15:00 Hydralazine HCl (Apresoline) 10 mg Q4H PRN IV ELEVATED BLOOD PRESSURE Last administered on 11/17/18 14:57; Admin Dose 10 MG; Start 11/17/18 at 10:30 Acetaminophen/ Hydrocodone Bitart ([place] (5/325)) 1 tab Q3H PRN PO MODERATE PAIN LEVEL 4-6 Last administered on 11/22/18at 17:07; Admin Dose 1 TAB; Start 11/17/18 at 14:30 Hydralazine HCl (Apresoline) 25 mg Q8 PO Last administered on 11/25/18 05:49; Admin Dose 25 MG; Start 11/18/18 at 06:00 Metoprolol Tartrate (Lopressor) 50 mg BID GTB Last administered on 11/25/18 08:17; Admin Dose 50 MG; Start 11/18/18 at 09:00 Albumin Human 50 ml @ 100 mls/hr WITH DIALYSIS PRN IV SBP<90 Last administered on 11/22/18 11:25; Admin Dose 100 MLS/HR; Start 11/18/18 at 14:30 Morphine Sulfate (morphine) 6 mg Q4H PRN PO SEVERE PAIN LEVEL 7-10 Last administered on 11/25/18 00:09; Admin Dose 6 MG; Start 11/18/18 at 23:00 Docusate Sodium (Colace Liquid Cup) 100 mg DAILY GTB Last administered on 11/25/18 08:16; Admin Dose 100 MG; Start 11/19/18 at 09:30 Guaifenesin/ Dextromethorphan (Robitussin Dm Liquid Cup) 5 ml Q4H PRN PO cough Last administered on 11/23/18 21:50; Admin Dose 5 ML; Start 11/20/18 at 14:00 Lansoprazole (Prevacid) 30 mg BID@0600,1800 GTB Last administered on 11/25/18 05:43; Admin Dose 30 MG; Start 11/21/18 at 18:00 Amlodipine Besylate (Norvasc) 2.5 mg BID GTB Last administered on 11/25/18 08:16; Admin Dose 2.5 MG; Start 11/22/18 at 21:00 Vancomycin HCl (Vanco Iv Per Pharmacy) VANCOMYCIN PER PHARMACY PER PROTOCOL XX ; Start 11/23/18 at 12:00 Meropenem/Sodium Chloride 50 ml @ 100 mls/hr Q24H IVPB Last administered on 11/24/18 14:52; Admin Dose 100 MLS/HR; Start 11/24/18 at 13:00 Multivit/Ca Carb/ B Cmplx/FA/Prenat ([place]) 1 tab DAILY GTB Last administered on 11/25/18 08:16; Admin Dose 1 TAB; Start 11/24/18 at 09:00 Assessment/Plan Chief Complaint/Hosp Course Cardiovascular preop evaluation Right hand hematoma: Status post IND now Renal failure on dialysis Hypertension Dementia Anemia Possible GI bleed: Status post EGD AI Recommendations: transfusion with HD prn Dialysis as per renal team Neuro workup and treatment as per internal medicine Thank you for his referral. We will continue to follow along with you as needed CHRISTEN ESCOBEDO MD LOCATED WITHIN [facility] CHRISTEN ESCOBEDO MD Nov 25, 2018 08:37
[2018-11-25] MEDS ORDERED: POTASSIUM CHLORIDE (SR) 20 MEQ TAB PO STA (09:45)
[2018-11-25] MEDS ORDERED: POTASSIUM CHLORIDE 20 MEQ POWDER FOR ORAL SOLN PO STA (10:03)
[2018-11-25] MEDS ORDERED: POTASSIUM CHLORIDE 20 MEQ POWDER FOR ORAL SOLN GTB STA (10:04)
--- NOTE | 2018-11-25 10:57 | CONS ---
Date/Time of Note Date/Time of Note DATE: 11/25/18 TIME: 10:48 Assessment/Plan Assessment/Plan Hospital Course seen for anemia initially. large rt wrist hematoma.CKD recent EGD: gastritis, no bleeding has been on BID PPI although not on flow sheet, nurse reports small, non melenic, non bloody BM;s will decrease PPI to once daily ac breakfast f/u gi prn Result Diagram: 11/25/18 0519 11/25/18 0519 Results 24hrs Laboratory Tests Test 11/25/18 05:19 11/25/18 08:15 White Blood Count 7.5 # Red Blood Count 2.86 L Hemoglobin 7.8 L Hematocrit 24.9 L Mean Corpuscular Volume 87.1 Mean Corpuscular Hemoglobin 27.3 L Mean Corpuscular Hemoglobin Concent 31.3 L Red Cell Distribution Width 16.5 H Platelet Count 183 Mean Platelet Volume 11.4 H Immature Granulocytes % 1.200 H Neutrophils % 67.0 Lymphocytes % 12.3 L Monocytes % 15.3 H Eosinophils % 3.8 Basophils % 0.4 Nucleated Red Blood Cells % 0.4 H Immature Granulocytes # 0.090 H Neutrophils # 5.1 Lymphocytes # 0.9 Monocytes # 1.2 H Eosinophils # 0.3 Basophils # 0.0 Nucleated Red Blood Cells # 0.0 Sodium Level 136 Potassium Level 3.4 L Chloride Level 99 Carbon Dioxide Level 33 H Anion Gap 4 #L Blood Urea Nitrogen 30 #H Creatinine 1.70 #H Est Glomerular Filtrat Rate mL/min Glucose Level 101 Calcium Level 8.1 L Phosphorus Level 2.0 L Magnesium Level 2.3 Random Vancomycin Level 10.5 Bedside Glucose 101 Consultation Date/Type/Reason Admit Date/Time Nov 16, 2018 at 05:51 Initial Consult Date 11/16/18 Type of Consult consult follow up Requesting Provider: DYLON WALLS MD Exam/Review of Systems Vital Signs Vitals Vital Signs Date Temp Pulse Resp B/P (MAP) Pulse Ox O2 O2 Flow FiO2 Time Delivery Rate 11/25/18 97.4 69 17 130/69 94 Room Air 08:00 (89) Intake and Output 11/24/18 11/24/18 11/25/18 1515:00 23:00 07:00 IntakeIntake Total 50 ml OutputOutput Total 401 ml BalanceBalance -401 ml 50 ml Medications Medications Current Medications IV Flush (NS 3 ml) 3 ml PER PROTOCOL IV ; Start 11/16/18 at 09:00 Ondansetron HCl (Zofran Inj) 4 mg Q6H PRN IV NAUSEA AND/OR VOMITING; Start 11/16/18 at 09:00 Acetaminophen (Tylenol Tab) 650 mg Q6H PRN PO PAIN LEVEL 1-3 OR FEVER Last administered on 11/24/18 20:19; Admin Dose 650 MG; Start 11/16/18 at 09:00 Docusate Sodium (Colace) 100 mg Q12H PRN PO CONSTIPATION; Start 11/16/18 at 09:00 Magnesium Hydroxide (Milk Of Mag) 30 ml DAILY PRN PO CONSTIPATION; Start 11/16/18 at 09:00 Folic Acid (Folic Acid) 1 mg DAILY GTB Last administered on 11/25/18at 08:16; Admin Dose 1 MG; Start 11/16/18 at 09:00 Albuterol/ Ipratropium (Duoneb) 3 ml Q6 PRN HHN sob; Start 11/16/18 at 09:00 Linagliptin (Tradjenta) 5 mg DAILY GTB Last administered on 11/25/18 08:16; Admin Dose 5 MG; Start 11/16/18 at 09:00 Lorazepam (Ativan) 1 mg HS PRN GTB ANXIETY Last administered on 11/24/18 20:19; Admin Dose 1 MG; Start 11/16/18 at 09:00 Quetiapine Fumarate (Seroquel) 25 mg BID GTB Last administered on 11/25/18 08:16; Admin Dose 25 MG; Start 11/16/18 at 09:00 Senna (Senokot) 1 tab BID PO Last administered on 11/25/18 08:16; Admin Dose 1 TAB; Start 11/16/18 at 09:00 Sevelamer Carbonate (Renvela) 0.8 gm WITH MEALS PO Last administered on 11/25/18 08:15; Admin Dose 0.8 GM; Start 11/16/18 at 11:30 Valproate Sodium (Depakene Liquid Cup) 250 mg Q8 PO Last administered on 11/25/18at 05:43; Admin Dose 250 MG; Start 11/16/18 at 14:00 Sodium Chloride (NS) -To prime the dialy... DIRECTED FOR HD PRN IV SBP<90; Start 11/16/18 at 15:00 Hydralazine HCl (Apresoline) 10 mg Q4H PRN IV ELEVATED BLOOD PRESSURE Last administered on 11/17/18at 14:57; Admin Dose 10 MG; Start 11/17/18 at 10:30 Acetaminophen/ Hydrocodone Bitart ([place] (5/325)) 1 tab Q3H PRN PO MODERATE PAIN LEVEL 4-6 Last administered on 11/22/18 17:07; Admin Dose 1 TAB; Start 11/17/18 at 14:30 Hydralazine HCl (Apresoline) 25 mg Q8 PO Last administered on 11/25/18 05:49; Admin Dose 25 MG; Start 11/18/18 at 06:00 Metoprolol Tartrate (Lopressor) 50 mg BID GTB Last administered on 11/25/18 08:17; Admin Dose 50 MG; Start 11/18/18 at 09:00 Albumin Human 50 ml @ 100 mls/hr WITH DIALYSIS PRN IV SBP<90 Last administered on 11/22/18at 11:25; Admin Dose 100 MLS/HR; Start 11/18/18 at 14:30 Morphine Sulfate (morphine) 6 mg Q4H PRN PO SEVERE PAIN LEVEL 7-10 Last administered on 11/25/18 00:09; Admin Dose 6 MG; Start 11/18/18 at 23:00 Docusate Sodium (Colace Liquid Cup) 100 mg DAILY GTB Last administered on 11/25/18 08:16; Admin Dose 100 MG; Start 11/19/18 at 09:30 Guaifenesin/ Dextromethorphan (Robitussin Dm Liquid Cup) 5 ml Q4H PRN PO cough Last administered on 11/23/18 21:50; Admin Dose 5 ML; Start 11/20/18 at 14:00 Lansoprazole (Prevacid) 30 mg BID@0600,1800 GTB Last administered on 11/25/18 05:43; Admin Dose 30 MG; Start 11/21/18 at 18:00 Amlodipine Besylate (Norvasc) 2.5 mg BID GTB Last administered on 11/25/18 08:16; Admin Dose 2.5 MG; Start 11/22/18 at 21:00 Vancomycin HCl (Vanco Iv Per Pharmacy) VANCOMYCIN PER PHARMACY PER PROTOCOL XX ; Start 11/23/18 at 12:00 Meropenem/Sodium Chloride 50 ml @ 100 mls/hr Q24H IVPB Last administered on 11/24/18at 14:52; Admin Dose 100 MLS/HR; Start 11/24/18 at 13:00 Multivit/Ca Carb/ B Cmplx/FA/Prenat ([place]) 1 tab DAILY GTB Last admi nistered on 11/25/18at 08:16; Admin Dose 1 TAB; Start 11/24/18 at 09:00 ALICIA MARTINEZ MD Nov 25, 2018 10:57
[2018-11-25] MEDS: MEROPENEM 500MG/50 ML (PMX) 50 ML IVPB SCH (13:57)
[2018-11-25 14:00] VITALS: BP 118/50; PULSE 70; RESP 18
--- NOTE | 2018-11-25 14:02 | CONS ---
Date/Time of Note Date/Time of Note DATE: 11/25/18 TIME: 14:01 Assessment/Plan Assessment/Plan Hospital Course Sleeping. Looks comfortable. No fevers overnight Microbiology: Blood cultures negative Antimicrobials: Vancomycin, meropenem Chest x-ray 11/23/18 revealed left lung interstitial opacities questionable edema versus pneumonia. Findings are new Indwelling: Left chest permacath, PEG Physical examination: Chronically ill-appearing elderly woman who is awake, confused, in no distress. Head atraumatic normocephalic. Neck is supple. Chest rise symmetrical breath sounds diminished bases. Heart: S1-S2. Abdomen soft bowel sounds present, right upper extremity Armani wrapped Assessment: 1. Healthcare associated pneumonia, possibly aspiration 2. Right hand hematoma, status post I&D 11/17/18 3. Status post VRE bacteremia, status post new Pcath 4. End-stage renal disease, hemodialysis dependent 5. Dementia 6. Failure to thrive 7. Diabetes 8. Anemia Plan: Clinically unchanged, had been afebrile since yesterday, blood cultures negative, continue antibiotics, aspiration precautions Result Diagram: 11/25/18 0519 11/25/18 0519 Results 24hrs Laboratory Tests Test 11/25/18 05:19 11/25/18 08:15 White Blood Count 7.5 # Red Blood Count 2.86 L Hemoglobin 7.8 L Hematocrit 24.9 L Mean Corpuscular Volume 87.1 Mean Corpuscular Hemoglobin 27.3 L Mean Corpuscular Hemoglobin Concent 31.3 L Red Cell Distribution Width 16.5 H Platelet Count 183 Mean Platelet Volume 11.4 H Immature Granulocytes % 1.200 H Neutrophils % 67.0 Lymphocytes % 12.3 L Monocytes % 15.3 H Eosinophils % 3.8 Basophils % 0.4 Nucleated Red Blood Cells % 0.4 H Immature Granulocytes # 0.090 H Neutrophils # 5.1 Lymphocytes # 0.9 Monocytes # 1.2 H Eosinophils # 0.3 Basophils # 0.0 Nucleated Red Blood Cells # 0.0 Sodium Level 136 Potassium Level 3.4 L Chloride Level 99 Carbon Dioxide Level 33 H Anion Gap 4 #L Blood Urea Nitrogen 30 #H Creatinine 1.70 #H Est Glomerular Filtrat Rate mL/min Glucose Level 101 Calcium Level 8.1 L Phosphorus Level 2.0 L Magnesium Level 2.3 Random Vancomycin Level 10.5 Bedside Glucose 101 Consultation Date/Type/Reason Admit Date/Time Nov 16, 2018 at 05:51 Initial Consult Date 11/16/18 Type of Consult id Requesting Provider: DYLON WALLS MD Exam/Review of Systems Vital Signs Vitals Vital Signs Date Temp Pulse Resp B/P (MAP) Pulse Ox O2 O2 Flow FiO2 Time Delivery Rate 11/25/18 97.4 69 17 130/69 94 Room Air 08:00 (89) Intake and Output 11/24/18 11/24/18 11/25/18 1515:00 23:00 07:00 IntakeIntake Total 50 ml OutputOutput Total 401 ml BalanceBalance -401 ml 50 ml Medications Medications Current Medications IV Flush (NS 3 ml) 3 ml PER PROTOCOL IV ; Start 11/16/18 at 09:00 Ondansetron HCl (Zofran Inj) 4 mg Q6H PRN IV NAUSEA AND/OR VOMITING; Start 11/16/18 at 09:00 Acetaminophen (Tylenol Tab) 650 mg Q6H PRN PO PAIN LEVEL 1-3 OR FEVER Last administered on 11/24/18at 20:19; Admin Dose 650 MG; Start 11/16/18 at 09:00 Docusate Sodium (Colace) 100 mg Q12H PRN PO CONSTIPATION; Start 11/16/18 at 09:00 Magnesium Hydroxide (Milk Of Mag) 30 ml DAILY PRN PO CONSTIPATION; Start 11/16/18 at 09:00 Folic Acid (Folic Acid) 1 mg DAILY GTB Last administered on 11/25/18at 08:16; Admin Dose 1 MG; Start 11/16/18 at 09:00 Albuterol/ Ipratropium (Duoneb) 3 ml Q6 PRN HHN sob; Start 11/16/18 at 09:00 Linagliptin (Tradjenta) 5 mg DAILY GTB Last administered on 11/25/18at 08:16; Admin Dose 5 MG; Start 11/16/18 at 09:00 Lorazepam (Ativan) 1 mg HS PRN GTB ANXIETY Last administered on 11/24/18at 20:19; Admin Dose 1 MG; Start 11/16/18 at 09:00 Quetiapine Fumarate (Seroquel) 25 mg BID GTB Last administered on 11/25/18at 08:16; Admin Dose 25 MG; Start 11/16/18 at 09:00 Senna (Senokot) 1 tab BID PO Last administered on 11/25/18 08:16; Admin Dose 1 TAB; Start 11/16/18 at 09:00 Sevelamer Carbonate (Renvela) 0.8 gm WITH MEALS PO Last administered on 11/25/18 11:30; Admin Dose 0.8 GM; Start 11/16/18 at 11:30 Valproate Sodium (Depakene Liquid Cup) 250 mg Q8 PO Last administered on 11/25/18 13:57; Admin Dose 250 MG; Start 11/16/18 at 14:00 Sodium Chloride (NS) -To prime the dialy... DIRECTED FOR HD PRN IV SBP<90; Start 11/16/18 at 15:00 Hydralazine HCl (Apresoline) 10 mg Q4H PRN IV ELEVATED BLOOD PRESSURE Last administered on 11/17/18 14:57; Admin Dose 10 MG; Start 11/17/18 at 10:30 Acetaminophen/ Hydrocodone Bitart ([place] (5/325)) 1 tab Q3H PRN PO MODERATE PAIN LEVEL 4-6 Last administered on 11/22/18 17:07; Admin Dose 1 TAB; Start 11/17/18 at 14:30 Hydralazine HCl (Apresoline) 25 mg Q8 PO Last administered on 11/25/18 13:58; Admin Dose 25 MG; Start 11/18/18 at 06:00 Metoprolol Tartrate (Lopressor) 50 mg BID GTB Last administered on 11/25/18 08:17; Admin Dose 50 MG; Start 11/18/18 at 09:00 Albumin Human 50 ml @ 100 mls/hr WITH DIALYSIS PRN IV SBP<90 Last administered on 11/22/18 11:25; Admin Dose 100 MLS/HR; Start 11/18/18 at 14:30 Morphine Sulfate (morphine) 6 mg Q4H PRN PO SEVERE PAIN LEVEL 7-10 Last adminis tered on 11/25/18at 00:09; Admin Dose 6 MG; Start 11/18/18 at 23:00 Docusate Sodium (Colace Liquid Cup) 100 mg DAILY GTB Last administered on 11/25/18 08:16; Admin Dose 100 MG; Start 11/19/18 at 09:30 Guaifenesin/ Dextromethorphan (Robitussin Dm Liquid Cup) 5 ml Q4H PRN PO cough Last administered on 11/23/18at 21:50; Admin Dose 5 ML; Start 11/20/18 at 14:00 Amlodipine Besylate (Norvasc) 2.5 mg BID GTB Last administered on 11/25/18at 08:16; Admin Dose 2.5 MG; Start 11/22/18 at 21:00 Vancomycin HCl (Vanco Iv Per Pharmacy) VANCOMYCIN PER PHARMACY PER PROTOCOL XX ; Start 11/23/18 at 12:00 Meropenem/Sodium Chloride 50 ml @ 100 mls/hr Q24H IVPB Last administered on 11/25/18at 13:57; Admin Dose 100 MLS/HR; Start 11/24/18 at 13:00 Multivit/Ca Carb/ B Cmplx/FA/Prenat ([place]-Roque) 1 tab DAILY GTB Last administered on 11/25/18at 08:16; Admin Dose 1 TAB; Start 11/24/18 at 09:00 Lansoprazole (Prevacid) 30 mg DAILY GTB ; Start 11/26/18 at 09:00 PHYLICIA HOLCOMB NP Nov 25, 2018 14:02
--- NOTE | 2018-11-25 15:18 | CONS ---
Date/Time of Note Date/Time of Note DATE: 11/25/18 TIME: 15:11 Assessment/Plan Assessment/Plan Hospital Course 83 y/o with 1. Right hand swelling, likely secondary to hematoma, questionable fall. with compression s/p I and D on 11/17/18 2. Gastrointestinal bleed with melena. 3. Hypertension. 4. Diabetes. 5. End-stage renal disease on hemodialysis. 6. History of falls. 7. Vascular dementia.with AMS 8. History of sepsis with VRE. 9. Dysphagia, status post G-tube. 10. History of hip fracture. 11. Thrombocytopenia. 12. Atherosclerotic heart disease. 13 ongoing fevers questionable pneumonia Plan - HD tmw - K supplement - cw vancomycin/meropenem - Monitor fevers - Hold BP meds before hd - renally dose all meds Result Diagram: 11/25/1819 11/25/1819 Results 24hrs Laboratory Tests Test 11/25/18 05:19 11/25/18 08:15 White Blood Count 7.5 # Red Blood Count 2.86 L Hemoglobin 7.8 L Hematocrit 24.9 L Mean Corpuscular Volume 87.1 Mean Corpuscular Hemoglobin 27.3 L Mean Corpuscular Hemoglobin Concent 31.3 L Red Cell Distribution Width 16.5 H Platelet Count 183 Mean Platelet Volume 11.4 H Immature Granulocytes % 1.200 H Neutrophils % 67.0 Lymphocytes % 12.3 L Monocytes % 15.3 H Eosinophils % 3.8 Basophils % 0.4 Nucleated Red Blood Cells % 0.4 H Immature Granulocytes # 0.090 H Neutrophils # 5.1 Lymphocytes # 0.9 Monocytes # 1.2 H Eosinophils # 0.3 Basophils # 0.0 Nucleated Red Blood Cells # 0.0 Sodium Level 136 Potassium Level 3.4 L Chloride Level 99 Carbon Dioxide Level 33 H Anion Gap 4 #L Blood Urea Nitrogen 30 #H Creatinine 1.70 #H Est Glomerular Filtrat Rate mL/min Glucose Level 101 Calcium Level 8.1 L Phosphorus Level 2.0 L Magnesium Level 2.3 Random Vancomycin Level 10.5 Bedside Glucose 101 Consultation Date/Type/Reason Admit Date/Time Nov 16, 2018 at 05:51 Initial Consult Date 11/16/18 Requesting Provider: DYLON WALLS MD 24 HR Interval Summary Free Text/Dictation No fevers s/p HD yesterday Exam/Review of Systems Vital Signs Vitals Vital Signs Date Temp Pulse Resp B/P (MAP) Pulse Ox O2 O2 Flow FiO2 Time Delivery Rate 11/25/18 98.0 70 18 118/50 96 Room Air 14:00 (72) Intake and Output 11/24/18 11/24/18 11/25/18 1515:00 23:00 07:00 IntakeIntake Total 50 ml OutputOutput Total 401 ml BalanceBalance -401 ml 50 ml Exam ENERAL: The patient is sleepy HEENT: Pupils equal, round, reactive to light. NECK: Supple. HEART: Regular rate and rhythm. LUNGS: Clear to auscultate bilaterally. CARDIOVASCULAR: Patient has a left IJ in place. Rt arm s/p I and d WRAPPED EXTREMITIES: No clubbing, cyanosis, or edema. Medications Medications Current Medications IV Flush (NS 3 ml) 3 ml PER PROTOCOL IV ; Start 11/16/18 at 09:00 Ondansetron HCl (Zofran Inj) 4 mg Q6H PRN IV NAUSEA AND/OR VOMITING; Start 11/16/18 at 09:00 Acetaminophen (Tylenol Tab) 650 mg Q6H PRN PO PAIN LEVEL 1-3 OR FEVER Last administered on 11/24/18at 20:19; Admin Dose 650 MG; Start 11/16/18 at 09:00 Docusate Sodium (Colace) 100 mg Q12H PRN PO CONSTIPATION; Start 11/16/18 at 09:00 Magnesium Hydroxide (Milk Of Mag) 30 ml DAILY PRN PO CONSTIPATION; Start 11/16/18 at 09:00 Folic Acid (Folic Acid) 1 mg DAILY GTB Last administered on 11/25/18at 08:16; Admin Dose 1 MG; Start 11/16/18 at 09:00 Albuterol/ Ipratropium (Duoneb) 3 ml Q6 PRN HHN sob; Start 11/16/18 at 09:00 Linagliptin (Tradjenta) 5 mg DAILY GTB Last administered on 11/25/18at 08:16; Admin Dose 5 MG; Start 11/16/18 at 09:00 Lorazepam (Ativan) 1 mg HS PRN GTB ANXIETY Last administered on 11/24/18at 20:19; Admin Dose 1 MG; Start 11/16/18 at 09:00 Quetiapine Fumarate (Seroquel) 25 mg BID GTB Last administered on 11/25/18at 08:16; Admin Dose 25 MG; Start 11/16/18 at 09:00 Senna (Senokot) 1 tab BID PO Last administered on 11/25/18at 08:16; Admin Dose 1 TAB; Start 11/16/18 at 09:00 Sevelamer Carbonate (Renvela) 0.8 gm WITH MEALS PO Last administered on 11/25/18 11:30; Admin Dose 0.8 GM; Start 11/16/18 at 11:30 Valproate Sodium (Depakene Liquid Cup) 250 mg Q8 PO Last administered on 11/25/18at 13:57; Admin Dose 250 MG; Start 11/16/18 at 14:00 Sodium Chloride (NS) -To prime the dialy... DIRECTED FOR HD PRN IV SBP<90; Start 11/16/18 at 15:00 Hydralazine HCl (Apresoline) 10 mg Q4H PRN IV ELEVATED BLOOD PRESSURE Last administered on 11/17/18at 14:57; Admin Dose 10 MG; Start 11/17/18 at 10:30 Acetaminophen/ Hydrocodone Bitart ([place] (5/325)) 1 tab Q3H PRN PO MODERATE PAIN LEVEL 4-6 Last administered on 11/22/18at 17:07; Admin Dose 1 TAB; Start 11/17/18 at 14:30 Hydralazine HCl (Apresoline) 25 mg Q8 PO Last administered on 11/25/18at 13:58; Admin Dose 25 MG; Start 11/18/18 at 06:00 Metoprolol Tartrate (Lopressor) 50 mg BID GTB Last administered on 11/25/18at 08:17; Admin Dose 50 MG; Start 11/18/18 at 09:00 Albumin Human 50 ml @ 100 mls/hr WITH DIALYSIS PRN IV SBP<90 Last administered on 11/22/18at 11:25; Admin Dose 100 MLS/HR; Start 11/18/18 at 14:30 Morphine Sulfate (morphine) 6 mg Q4H PRN PO SEVERE PAIN LEVEL 7-10 Last administered on 11/25/18at 00:09; Admin Dose 6 MG; Start 11/18/18 at 23:00 Docusate Sodium (Colace Liquid Cup) 100 mg DAILY GTB Last administered on 11/25/18 08:16; Admin Dose 100 MG; Start 11/19/18 at 09:30 Guaifenesin/ Dextromethorphan (Robitussin Dm Liquid Cup) 5 ml Q4H PRN PO cough Last administered on 11/23/18at 21:50; Admin Dose 5 ML; Start 11/20/18 at 14:00 Amlodipine Besylate (Norvasc) 2.5 mg BID GTB Last administered on 11/25/18at 08:16; Admin Dose 2.5 MG; Start 11/22/18 at 21:00 Vancomycin HCl (Vanco Iv Per Pharmacy) VANCOMYCIN PER PHARMACY PER PROTOCOL XX ; Start 11/23/18 at 12:00 Meropenem/Sodium Chloride 50 ml @ 100 mls/hr Q24H IVPB Last administered on 11/25/18at 13:57; Admin Dose 100 MLS/HR; Start 11/24/18 at 13:00 Multivit/Ca Carb/ B Cmplx/FA/Prenat ([place]ianna-Roque) 1 tab DAILY GTB Last administered on 11/25/18at 08:16; Admin Dose 1 TAB; Start 11/24/18 at 09:00 Lansoprazole (Prevacid) 30 mg DAILY GTB ; Start 11/26/18 at 09:00 JOSE RAUL ANDREWS MD Nov 25, 2018 15:18
[2018-11-25] MEDS ORDERED: VANCOMYCIN 750 MG (PMX) 250 ML IVPB SCH (17:00)
[2018-11-25] MEDS ORDERED: LIDOCAINE 1% (MPF) 5 ML VIAL SC ONE (17:30)
--- NOTE | 2018-11-25 17:49 | PN ---
DATE: 11/25/2018 SUBJECTIVE: The patient is responding well to antibiotics. The patient is doing better. White coun t now back normalized. She remains on antibiotics, so we [facility] I discussed with nursing staff. PHYSICAL EXAMINATION: VITAL SIGNS: Temperature 98, pulse 70, respiration 18, blood pressure 118/50, saturation 96%. HEENT: The patient is frail, pale. CARDIOVASCULAR: S1, S2. Regular rate. PermCath in place. ABDOMEN: Soft. G-tube in place. EXTREMITIES: Right hand bandage. Some skin ecchymosis. No clubbing, cyanosis, or edema otherwise. LABORATORY DATA: White count 7.5, hemoglobin 7.8, hematocrit 25, platelet count 183 with normal diff erential. Chemistry: Sodium 136, potassium 3.4, chloride 99, bicarbonate 33, BUN is 30, creatinine 1.7, glucose of 101. Blood culture dated 11/24/2018 done negative. DIAGNOSTIC DATA: The patient's chest x-ray was done a few days ago which did show pneumonia. MEDICATIONS: I appreciate GI input. ASSESSMENT AND PLAN: This is an 83-year-old Citizen Of [place] female with history of end-stage renal disease, dementia, psychiatric disorder, chronic obstructive pulmonary disease, who presented with right hand severe hematoma, status post incision and drainage and evacuation, also now being treated for aspira tion pneumonia. 1. Respiratory. Continue above antibiotics. Repeat chest x-ray in a.m. PICC line to be placed for the IV antibiotics in this patient at the nursing home facility. The patient is afebrile with no rmal white count. 2. Cardiovascular. Vitals are stable. 3. End-stage renal disease. Dialysis 3 times a week. 4. Anxiety, multifactorial, improved. 5. Dysphagia. Continue G-tube feeding. 6. Diabetes mellitus. Glucose level is in the low 100s. 7. Anemia. May consider transfusion. Follow up H and H. The patient is to be placed on iron suppl ements. May benefit from Epogen. Nephrology is following. We will follow. Dictated By: DYLON HULL/MADAN Conf#: [id number] DID#: [id number] CC: CHRISS WELCH MD;*EndCC*
[2018-11-25 19:30] VITALS: BP 123/70; PULSE 76; RESP 16
[2018-11-25] MEDS: FERROUS SULFATE (EC) 325 MG TAB PO SCH (20:51)
[2018-11-26] VITALS (16 sets, daily range): BP systolic 100–162; BP diastolic 43–147; PULSE 53–104; RESP 16–20
[2018-11-26] MEDS: morphine LIQ (10 MG/5 ML) CUP PO PRN (00:39)
[2018-11-26] MEDS: VALPROIC ACID LIQUID CUP 250 MG/5 ML CUP PO SCH ×3 (05:45→22:02)
[2018-11-26] MEDS ORDERED: ACETAMINOPHEN 650 MG SUPP PR ONE (08:29)
[2018-11-26] MEDS ORDERED: ACETAMINOPHEN 650 MG SUPP PR PRN (08:30)
[2018-11-26] MEDS: LANSOPRAZOLE 30 MG CAP GTB SCH (08:32)
[2018-11-26] MEDS: FOLIC ACID 1 MG TAB GTB SCH (08:32)
[2018-11-26] MEDS: FERROUS SULFATE (EC) 325 MG TAB PO SCH ×2 (08:32→20:52)
[2018-11-26] MEDS: MULTIVIT/CA CARB/B CMPLX/FA TAB GTB SCH (08:32)
[2018-11-26] MEDS: DOCUSATE SODIUM 10 MG/ML (10ML CUP) GTB SCH (08:33)
[2018-11-26] MEDS: SEVELAMER CARBONATE 0.8 GM PKT PO SCH ×2 (08:33→12:28)
[2018-11-26] MEDS: QUETIAPINE 25 MG TAB GTB SCH ×2 (08:35→20:52)
[2018-11-26] MEDS: SENNA TAB PO SCH ×2 (08:37→20:52)
[2018-11-26] MEDS: LINAGLIPTIN 5 MG TABLET GTB SCH (08:37)
[2018-11-26] MEDS: METOPROLOL 50 MG TAB GTB SCH ×2 (08:38→20:52)
[2018-11-26] MEDS: AMLODIPINE 2.5 MG TAB GTB SCH ×2 (08:38→20:53)
--- NOTE | 2018-11-26 10:24 | CONS ---
Date/Time of Note Date/Time of Note DATE: 11/26/18 TIME: 10:24 Assessment/Plan Assessment/Plan Hospital Course 83 yo female in ESRD on HD presents for melena and anemia and also found to have edematous Rt hand/wrist 1. UGIB manifested through melena and anemia -no melena noted or GI bleeding noted by nursing staff 2. Anemia, acute on chronic, acute likely due to blood loss in rt hand -Hgb 6.8->10.6->9.2->8.3 -No evidence of active GI bleeding, consider etiology of blood loss anemia to be from hematoma in hand -s/p 2 units with HD on 11/17 -Fe wnl, TIBC low, Ferritin, folate, b12 high, FOB neg 3. ESRD on HD -receiving HD currently 4. Hematoma of Rt hand and wrist -I and D drainage by Dr. Dean 11/17 5. Dysphagia -on tube feeds and pureed nectar for oral gratification 6. DM2 7. HTN 8. H/O diastolic dysfunction heart failure 9. S/P EGD 11/18 10. Moderate gastritis with no bleeding noted. 11. Hospital acquired pneumonia- concern for aspiration Gastric biopsy results: Stomach, biopsy: -- Antral and oxyntic mucosa showing minimal plasma cell infiltration and small focus of intestinal metaplasia. -- No Helicobacter pylori is identified in Giemsa stain (positive control concurrently reviewed). -- No evidence of dysplasia or malignancy. Plan: Cont abx Continue present care Monitor HH closely and for active GI bleeding PPI BID Pt examined and plan of care discussed with Dr. Baird Result Diagram: 11/26/18 0434 11/26/18 0434 Results 24hrs Laboratory Tests Test 11/26/18 04:34 11/26/18 08:36 White Blood Count 8.2 Red Blood Count 2.66 L Hemoglobin 7.2 L Hematocrit 23.0 L Mean Corpuscular Volume 86.5 Mean Corpuscular Hemoglobin 27.1 L Mean Corpuscular Hemoglobin Concent 31.3 L Red Cell Distribution Width 16.6 H Platelet Count 196 Mean Platelet Volume 11.8 H Immature Granulocytes % 1.100 H Neutrophils % 62.4 Lymphocytes % 14.4 L Monocytes % 15.7 H Eosinophils % 6.0 Basophils % 0.4 Nucleated Red Blood Cells % 0.6 H Immature Granulocytes # 0.090 H Neutrophils # 5.1 Lymphocytes # 1.2 Monocytes # 1.3 H Eosinophils # 0.5 Basophils # 0.0 Nucleated Red Blood Cells # 0.1 H Sodium Level 135 Potassium Level 4.1 Chloride Level 98 Carbon Dioxide Level 30 Anion Gap 7 Blood Urea Nitrogen 44 #H Creatinine 2.39 H Est Glomerular Filtrat Rate mL/min Glucose Level 120 Calcium Level 8.4 Phosphorus Level 1.8 L Magnesium Level 2.4 Bedside Glucose 132 Consultation Date/Type/Reason Admit Date/Time Nov 16, 2018 at 05:51 Initial Consult Date 11/16/18 Requesting Provider: DYLON WALLS MD 24 HR Interval Summary Free Text/Dictation NO evidence of GI bleeding. Exam/Review of Systems Vital Signs Vitals Vital Signs Date Temp Pulse Resp B/P (MAP) Pulse Ox O2 O2 Flow FiO2 Time Delivery Rate 11/26/18 88 10:03 11/26/18 99.5 09:21 11/26/18 20 162/147 96 Room Air 08:17 (152) Intake and Output 11/25/18 11/25/18 11/26/18 1515:00 23:00 07:00 IntakeIntake Total 50 ml 1070 ml 100 ml BalanceBalance 50 ml 1070 ml 100 ml Exam Constitutional: alert Psych: no complaints Eyes: PERRL Gastrointestinal: soft, non-tender 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: confused Medications Medications Current Medications IV Flush (NS 3 ml) 3 ml PER PROTOCOL IV ; Start 11/16/18 at 09:00 Ondansetron HCl (Zofran Inj) 4 mg Q6H PRN IV NAUSEA AND/OR VOMITING; Start 11/16/18 at 09:00 Acetaminophen (Tylenol Tab) 650 mg Q6H PRN PO PAIN LEVEL 1-3 OR FEVER Last administered on 11/24/18at 20:19; Admin Dose 650 MG; Start 11/16/18 at 09:00 Docusate Sodium (Colace) 100 mg Q12H PRN PO CONSTIPATION; Start 11/16/18 at 09:00 Magnesium Hydroxide (Milk Of Mag) 30 ml DAILY PRN PO CONSTIPATION; Start 11/16/18 at 09:00 Folic Acid (Folic Acid) 1 mg DAILY GTB Last administered on 11/26/18at 08:32; Admin Dose 1 MG; Start 11/16/18 at 09:00 Albuterol/ Ipratropium (Duoneb) 3 ml Q6 PRN HHN sob; Start 11/16/18 at 09:00 Linagliptin (Tradjenta) 5 mg DAILY GTB Last administered on 11/26/18 08:37; Admin Dose 5 MG; Start 11/16/18 at 09:00 Lorazepam (Ativan) 1 mg HS PRN GTB ANXIETY Last administered on 11/24/18 20: 19; Admin Dose 1 MG; Start 11/16/18 at 09:00 Quetiapine Fumarate (Seroquel) 25 mg BID GTB Last administered on 11/26/18 08:35; Admin Dose 25 MG; Start 11/16/18 at 09:00 Senna (Senokot) 1 tab BID PO Last administered on 11/26/18 08:37; Admin Dose 1 TAB; Start 11/16/18 at 09:00 Sevelamer Carbonate (Renvela) 0.8 gm WITH MEALS PO Last administered on 11/26/18 08:33; Admin Dose 0.8 GM; Start 11/16/18 at 11:30 Valproate Sodium (Depakene Liquid Cup) 250 mg Q8 PO Last administered on 11/26/18 05:45; Admin Dose 250 MG; Start 11/16/18 at 14:00 Sodium Chloride (NS) -To prime the dialy... DIRECTED FOR HD PRN IV SBP<90; Start 11/16/18 at 15:00 Hydralazine HCl (Apresoline) 10 mg Q4H PRN IV ELEVATED BLOOD PRESSURE Last administered on 11/17/18 14:57; Admin Dose 10 MG; Start 11/17/18 at 10:30 Acetaminophen/ Hydrocodone Bitart ([place] (5/325)) 1 tab Q3H PRN PO MODERATE PAIN LEVEL 4-6 Last administered on 11/22/18 17:07; Admin Dose 1 TAB; Start 11/17/18 at 14:30 Hydralazine HCl (Apresoline) 25 mg Q8 PO Last administered on 11/26/18 05:46; Admin Dose 25 MG; Start 11/18/18 at 06:00 Metoprolol Tartrate (Lopressor) 50 mg BID GTB Last administered on 11/25/18 20:53; Admin Dose 50 MG; Start 11/18/18 at 09:00 Albumin Human 50 ml @ 100 mls/hr WITH DIALYSIS PRN IV SBP<90 Last administered on 11/22/18 11:25; Admin Dose 100 MLS/HR; Start 11/18/18 at 14:30 Morphine Sulfate (morphine) 6 mg Q4H PRN PO SEVERE PAIN LEVEL 7-10 Last administered on 11/26/18 00:39; Admin Dose 6 MG; Start 11/18/18 at 23:00 Docusate Sodium (Colace Liquid Cup) 100 mg DAILY GTB Last administered on 11/26/18 08:33; Admin Dose 100 MG; Start 11/19/18 at 09:30 Guaifenesin/ Dextromethorphan (Robitussin Dm Liquid Cup) 5 ml Q4H PRN PO cough Last administered on 11/23/18 21:50; Admin Dose 5 ML; Start 11/20/18 at 14:00 Amlodipine Besylate (Norvasc) 2.5 mg BID GTB Last administered on 11/25/18 20:52; Admin Dose 2.5 MG; Start 11/22/18 at 21:00 Vancomycin HCl (Vanco Iv Per Pharmacy) VANCOMYCIN PER PHARMACY PER PROTOCOL XX ; Start 11/23/18 at 12:00 Meropenem/Sodium Chloride 50 ml @ 100 mls/hr Q24H IVPB Last administered on 11/25/18 13:57; Admin Dose 100 MLS/HR; Start 11/24/18 at 13:00 Multivit/Ca Carb/ B Cmplx/FA/Prenat ([place]-Roque) 1 tab DAILY GTB Last administered on 11/26/18 08:32; Admin Dose 1 TAB; Start 11/24/18 at 09:00 Lansoprazole (Prevacid) 30 mg DAILY GTB Last administered on 11/26/18 08:32; Admin Dose 30 MG; Start 11/26/18 at 09:00 Ferrous Sulfate (Ferrous Sulfate (Ec)) 325 mg BID PO Last administered on 11/26/18 08:32; Admin Dose 325 MG; Start 11/25/18 at 21:00 Acetaminophen (Tylenol Supp) 650 mg Q4H PRN CA MILD PAIN(1-3) OR TEMP>38C Last administered on 11/26/18 08:32; Admin Dose 650 MG; Start 11/26/18 at 08:30 TONY VENCES Nov 26, 2018 10:24
--- NOTE | 2018-11-26 12:21 | CONS ---
[facility] HCIS Consult Follow-up Patient Name: Zahira White Unit Number: [id number] Date of : 1935 Patient Status: Admitted Inpatient Attending Doctor: Kemar Walls MD Edit: JOSE RAUL ANDREWS MD on 11/27/18 @ 15:56 HD [facility]ENTER CAN DO VANCOMYCIN AND GENTAMYCIN Date/Time of Note Date/Time of Note DATE: 11/26/18 TIME: 12:19 Assessment/Plan Assessment/Plan Hospital Course 1. Right hand swelling, likely secondary to hematoma, questionable fall. with compression s/p I and D on 11/17/18 2. Gastrointestinal bleed with melena. 3. Hypertension. 4. Diabetes. 5. End-stage renal disease on hemodialysis. 6. History of falls. 7. Vascular dementia. 8. History of sepsis with VRE. 9. Dysphagia, status post G-tube. 10. History of hip fracture. 11. Thrombocytopenia. 12. Atherosclerotic heart disease. Assessment/Plan - object central line, not appropriate for HD pts -HD service may provide Vanco/Meropenem injection -HD today - K supplement as needed - cw vancomycin/meropenem - Monitor fevers - Hold BP meds before hd - renally dose all meds Result Diagram: 11/26/18 0434 11/26/18 0434 Results 24hrs Laboratory Tests Test 11/26/18 04:34 11/26/18 08:36 11/26/18 11:41 White Blood Count 8.2 Red Blood Count 2.66 L Hemoglobin 7.2 L Hematocrit 23.0 L Mean Corpuscular Volume 86.5 Mean Corpuscular Hemoglobin 27.1 L Mean Corpuscular Hemoglobin Concent 31.3 L Red Cell Distribution Width 16.6 H Platelet Count 196 Mean Platelet Volume 11.8 H Immature Granulocytes % 1.100 H Neutrophils % 62.4 Lymphocytes % 14.4 L Monocytes % 15.7 H Eosinophils % 6.0 Basophils % 0.4 Nucleated Red Blood Cells % 0.6 H Immature Granulocytes # 0.090 H Neutrophils # 5.1 Lymphocytes # 1.2 Monocytes # 1.3 H Eosinophils # 0.5 Basophils # 0.0 Nucleated Red Blood Cells # 0.1 H Sodium Level 135 Potassium Level 4.1 Chloride Level 98 Carbon Dioxide Level 30 Anion Gap 7 Blood Urea Nitrogen 44 #H Creatinine 2.39 H Est Glomerular Filtrat Rate mL/min Glucose Level 120 Calcium Level 8.4 Phosphorus Level 1.8 L Magnesium Level 2.4 Bedside Glucose 132 140 Consultation Date/Type/Reason Admit Date/Time Nov 16, 2018 at 05:51 Initial Consult Date 11/16/18 Type of Consult nephrology Requesting Provider: KEMAR WALLS MD 24 HR Interval Summary Constitutional: disoriented Exam/Review of Systems Vital Signs Vitals Vital Signs Date Temp Pulse Resp B/P (MAP) Pulse Ox O2 O2 Flow FiO2 Time Delivery Rate 11/26/18 78 20 106/69 96 Room Air 11:40 (81) 11/26/18 99.5 09:21 Intake and Output 11/25/18 11/25/18 11/26/18 1515:00 23:00 07:00 IntakeIntake Total 50 ml 1070 ml 100 ml BalanceBalance 50 ml 1070 ml 100 ml Exam left chest Perm cath ENMT: nl external ears & nose Neck: supple Respiratory: clear to auscultation Cardiovascular: regular rate and rhythm Gastrointestinal: soft, other (GT) 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: confused Medications Medications Current Medications IV Flush (NS 3 ml) 3 ml PER PROTOCOL IV ; Start 11/16/18 at 09:00 Ondansetron HCl (Zofran Inj) 4 mg Q6H PRN IV NAUSEA AND/OR VOMITING; Start 11/16/18 at 09:00 Acetaminophen (Tylenol Tab) 650 mg Q6H PRN PO PAIN LEVEL 1-3 OR FEVER Last administered on 11/24/18at 20:19; Admin Dose 650 MG; Start 11/16/18 at 09:00 Docusate Sodium (Colace) 100 mg Q12H PRN PO CONSTIPATION; Start 11/16/18 at 09:00 Magnesium Hydroxide (Milk Of Mag) 30 ml DAILY PRN PO CONSTIPATION; Start 11/16/18 at 09:00 Folic Acid (Folic Acid) 1 mg DAILY GTB Last administered on 11/26/18 08:32; Admin Dose 1 MG; Start 11/16/18 at 09:00 Albuterol/ Ipratropium (Duoneb) 3 ml Q6 PRN HHN sob; Start 11/16/18 at 09:00 Linagliptin (Tradjenta) 5 mg DAILY GTB Last administered on 11/26/18 08:37; Admin Dose 5 MG; Start 11/16/18 at 09:00 Lorazepam (Ativan) 1 mg HS PRN GTB ANXIETY Last administered on 11/24/18 20:19; Admin Dose 1 MG; Start 11/16/18 at 09:00 Quetiapine Fumarate (Seroquel) 25 mg BID GTB Last administered on 11/26/18 08:35; Admin Dose 25 MG; Start 11/16/18 at 09:00 Senna (Senokot) 1 tab BID PO Last administered on 11/26/18 08:37; Admin Dose 1 TAB; Start 11/16/18 at 09:00 Sevelamer Carbonate (Renvela) 0.8 gm WITH MEALS PO Last administered on 11/26/18 08:33; Admin Dose 0.8 GM; Start 11/16/18 at 11:30 Valproate Sodium (Depakene Liquid Cup) 250 mg Q8 PO Last administered on 11/26/18 05:45; Admin Dose 250 MG; Start 11/16/18 at 14:00 Sodium Chloride (NS) -To prime the dialy... DIRECTED FOR HD PRN IV SBP<90; Start 11/16/18 at 15:00 Hydralazine HCl (Apresoline) 10 mg Q4H PRN IV ELEVATED BLOOD PRESSURE Last administered on 11/17/18 14:57; Admin Dose 10 MG; Start 11/17/18 at 10:30 Acetaminophen/ Hydrocodone Bitart ([place] (5/325)) 1 tab Q3H PRN PO MODERATE PAIN LEVEL 4-6 Last administered on 11/22/18 17:07; Admin Dose 1 TAB; Start 11/17/18 at 14:30 Hydralazine HCl (Apresoline) 25 mg Q8 PO Last administered on 11/26/18 05:46; Admin Dose 25 MG; Start 11/18/18 at 06:00 Metoprolol Tartrate (Lopressor) 50 mg BID GTB Last administered on 11/25/18 20:53; Admin Dose 50 MG; Start 11/18/18 at 09:00 Albumin Human 50 ml @ 100 mls/hr WITH DIALYSIS PRN IV SBP<90 Last administered on 11/22/18 11:25; Admin Dose 100 MLS/HR; Start 11/18/18 at 14:30 Morphine Sulfate (morphine) 6 mg Q4H PRN PO SEVERE PAIN LEVEL 7-10 Last administered on 11/26/18 00:39; Admin Dose 6 MG; Start 11/18/18 at 23:00 Docusate Sodium (Colace Liquid Cup) 100 mg DAILY GTB Last administered on 11/26/18 08:33; Admin Dose 100 MG; Start 11/19/18 at 09:30 Guaifenesin/ Dextromethorphan (Robitussin Dm Liquid Cup) 5 ml Q4H PRN PO cough Last administered on 11/23/18 21:50; Admin Dose 5 ML; Start 11/20/18 at 14:00 Amlodipine Besylate (Norvasc) 2.5 mg BID GTB Last administered on 11/25/18 20:52; Admin Dose 2.5 MG; Start 11/22/18 at 21:00 Vancomycin HCl (Vanco Iv Per Pharmacy) VANCOMYCIN PER PHARMACY PER PROTOCOL XX ; Start 11/23/18 at 12:00 Meropenem/Sodium Chloride 50 ml @ 100 mls/hr Q24H IVPB Last administered on 11/25/18 13:57; Admin Dose 100 MLS/HR; Start 11/24/18 at 13:00 Multivit/Ca Carb/ B Cmplx/FA/Prenat (Kianna-Roque) 1 tab DAILY GTB Last administered on 11/26/18 08:32; Admin Dose 1 TAB; Start 11/24/18 at 09:00 Lansoprazole (Prevacid) 30 mg DAILY GTB Last administered on 11/26/18 08:32; Admin Dose 30 MG; Start 11/26/18 at 09:00 Ferrous Sulfate (Ferrous Sulfate (Ec)) 325 mg BID PO Last administered on 11/26/18 08:32; Admin Dose 325 MG; Start 11/25/18 at 21:00 Acetaminophen (Tylenol Supp) 650 mg Q4H PRN [place] MILD PAIN(1-3) OR TEMP>38C Last administered on 11/26/18at 08:32; Admin Dose 650 MG; Start 11/26/18 at 08:30 FLAVIO CLAYTON Nov 26, 2018 12:21
[2018-11-26] MEDS: MEROPENEM 500MG/50 ML (PMX) 50 ML IVPB SCH (13:30)
--- NOTE | 2018-11-26 14:56 | CONS ---
Date/Time of Note Date/Time of Note DATE: 11/26/18 TIME: 14:55 Assessment/Plan Assessment/Plan Hospital Course Sleeping. Looks comfortable. Microbiology: Blood cultures negative Antimicrobials: Vancomycin, meropenem Chest x-ray today: 1. Interval decreased left lung interstitial and airspace opacities, compatible with improving pneumonia. 2. Hyperinflation, compatible with emphysema. 3. Mild cardiomegaly and aortic atherosclerosis. Indwelling: Left chest permacath, PEG Physical examination: Chronically ill-appearing elderly woman who is awake, confused, in no distress. Head atraumatic normocephalic. Neck is supple. Chest rise symmetrical breath sounds diminished bases. Heart: S1-S2. Abdomen soft bowel sounds present, right upper extremity Armani wrapped Assessment: 1. Healthcare associated pneumonia, possibly aspiration 2. Right hand hematoma, status post I&D 11/17/18 3. Status post VRE bacteremia, status post new Pcath 4. End-stage renal disease, hemodialysis dependent 5. Dementia 6. Failure to thrive 7. Diabetes 8. Anemia Plan: Clinically unchanged, blood cultures negative, CXR improved, continue antibiotics, aspiration precautions Result Diagram: 11/26/18 0434 11/26/18 0434 Results 24hrs Laboratory Tests Test 11/26/18 04:34 11/26/18 08:36 11/26/18 11:41 White Blood Count 8.2 Red Blood Count 2.66 L Hemoglobin 7.2 L Hematocrit 23.0 L Mean Corpuscular Volume 86.5 Mean Corpuscular Hemoglobin 27.1 L Mean Corpuscular Hemoglobin Concent 31.3 L Red Cell Distribution Width 16.6 H Platelet Count 196 Mean Platelet Volume 11.8 H Immature Granulocytes % 1.100 H Neutrophils % 62.4 Lymphocytes % 14.4 L Monocytes % 15.7 H Eosinophils % 6.0 Basophils % 0.4 Nucleated Red Blood Cells % 0.6 H Immature Granulocytes # 0.090 H Neutrophils # 5.1 Lymphocytes # 1.2 Monocytes # 1.3 H Eosinophils # 0.5 Basophils # 0.0 Nucleated Red Blood Cells # 0.1 H Sodium Level 135 Potassium Level 4.1 Chloride Level 98 Carbon Dioxide Level 30 Anion Gap 7 Blood Urea Nitrogen 44 #H Creatinine 2.39 H Est Glomerular Filtrat Rate mL/min Glucose Level 120 Calcium Level 8.4 Phosphorus Level 1.8 L Magnesium Level 2.4 Bedside Glucose 132 140 Consultation Date/Type/Reason Admit Date/Time Nov 16, 2018 at 05:51 Initial Consult Date 11/16/18 Type of Consult id Requesting Provider: DYLON WALLS MD Exam/Review of Systems Vital Signs Vitals Vital Signs Date Temp Pulse Resp B/P (MAP) Pulse Ox O2 O2 Flow FiO2 Time Delivery Rate 11/26/18 78 20 106/69 96 Room Air 11:40 (81) 11/26/18 99.5 09:21 Intake and Output 11/25/18 11/25/18 11/26/18 1515:00 23:00 07:00 IntakeIntake Total 50 ml 1070 ml 100 ml BalanceBalance 50 ml 1070 ml 100 ml Medications Medications Current Medications IV Flush (NS 3 ml) 3 ml PER PROTOCOL IV ; Start 11/16/18 at 09:00 Ondansetron HCl (Zofran Inj) 4 mg Q6H PRN IV NAUSEA AND/OR VOMITING; Start 11/16/18 at 09:00 Acetaminophen (Tylenol Tab) 650 mg Q6H PRN PO PAIN LEVEL 1-3 OR FEVER Last administered on 11/24/18at 20:19; Admin Dose 650 MG; Start 11/16/18 at 09:00 Docusate Sodium (Colace) 100 mg Q12H PRN PO CONSTIPATION; Start 11/16/18 at 09:00 Magnesium Hydroxide (Milk Of Mag) 30 ml DAILY PRN PO CONSTIPATION; Start 11/16/18 at 09:00 Folic Acid (Folic Acid) 1 mg DAILY GTB Last administered on 11/26/18at 08:32; Admin Dose 1 MG; Start 11/16/18 at 09:00 Albuterol/ Ipratropium (Duoneb) 3 ml Q6 PRN HHN sob; Start 11/16/18 at 09:00 Linagliptin (Tradjenta) 5 mg DAILY GTB Last administered on 11/26/18at 08:37; Admin Dose 5 MG; Start 11/16/18 at 09:00 Lorazepam (Ativan) 1 mg HS PRN GTB ANXIETY Last administered on 11/24/18at 20:19; Admin Dose 1 MG; Start 11/16/18 at 09:00 Quetiapine Fumarate (Seroquel) 25 mg BID GTB Last administered on 11/26/18at 08:35; Admin Dose 25 MG; Start 11/16/18 at 09:00 Senna (Senokot) 1 tab BID PO Last administered on 11/26/18 08:37; Admin Dose 1 TAB; Start 11/16/18 at 09:00 Valproate Sodium (Depakene Liquid Cup) 250 mg Q8 PO Last administered on 11/26/18 14:17; Admin Dose 250 MG; Start 11/16/18 at 14:00 Sodium Chloride (NS) -To prime the dialy... DIRECTED FOR HD PRN IV SBP<90; Start 11/16/18 at 15:00 Hydralazine HCl (Apresoline) 10 mg Q4H PRN IV ELEVATED BLOOD PRESSURE Last administered on 11/17/18 14:57; Admin Dose 10 MG; Start 11/17/18 at 10:30 Acetaminophen/ Hydrocodone Bitart ([place] (5/325)) 1 tab Q3H PRN PO MODERATE P AIN LEVEL 4-6 Last administered on 11/22/18 17:07; Admin Dose 1 TAB; Start 11/17/18 at 14:30 Hydralazine HCl (Apresoline) 25 mg Q8 PO Last administered on 11/26/18 14:17; Admin Dose 25 MG; Start 11/18/18 at 06:00 Metoprolol Tartrate (Lopressor) 50 mg BID GTB Last administered on 11/25/18 20:53; Admin Dose 50 MG; Start 11/18/18 at 09:00 Albumin Human 50 ml @ 100 mls/hr WITH DIALYSIS PRN IV SBP<90 Last administered on 11/22/18 11:25; Admin Dose 100 MLS/HR; Start 11/18/18 at 14:30 Morphine Sulfate (morphine) 6 mg Q4H PRN PO SEVERE PAIN LEVEL 7-10 Last administered on 11/26/18 00:39; Admin Dose 6 MG; Start 11/18/18 at 23:00 Docusate Sodium (Colace Liquid Cup) 100 mg DAILY GTB Last administered on 11/26/18 08:33; Admin Dose 100 MG; Start 11/19/18 at 09:30 Guaifenesin/ Dextromethorphan (Robitussin Dm Liquid Cup) 5 ml Q4H PRN PO cough Last administered on 11/23/18 21:50; Admin Dose 5 ML; Start 11/20/18 at 14:00 Amlodipine Besylate (Norvasc) 2.5 mg BID GTB Last administered on 11/25/18 20:52; Admin Dose 2.5 MG; Start 11/22/18 at 21:00 Vancomycin HCl (Vanco Iv Per Pharmacy) VANCOMYCIN PER PHARMACY PER PROTOCOL XX ; Start 11/23/18 at 12:00 Meropenem/Sodium Chloride 50 ml @ 100 mls/hr Q24H IVPB Last administered on 11/26/18 13:30; Admin Dose 100 MLS/HR; Start 11/24/18 at 13:00 Multivit/Ca Carb/ B Cmplx/FA/Prenat (Kianna-Roque) 1 tab DAILY GTB Last administered on 11/26/18 08:32; Admin Dose 1 TAB; Start 11/24/18 at 09:00 Lansoprazole (Prevacid) 30 mg DAILY GTB Last administered on 11/26/18 08:32; Admin Dose 30 MG; Start 11/26/18 at 09:00 Ferrous Sulfate (Ferrous Sulfate (Ec)) 325 mg BID PO Last administered on 11/26/18 08:32; Admin Dose 325 MG; Start 11/25/18 at 21:00 Acetaminophen (Tylenol Supp) 650 mg Q4H PRN [place] MILD PAIN(1-3) OR TEMP>38C Last administered on 11/26/18 08:32; Admin Dose 650 MG; Start 11/26/18 at 08:30 PHYLICIA HOLCOMB NP Nov 26, 2018 14:56
--- NOTE | 2018-11-26 21:07 | CONS ---
Date/Time of Note Date/Time of Note DATE: 11/26/18 TIME: 21:06 Consult Date/Type/Reason Admit Date/Time Nov 16, 2018 at 05:51 Initial Consult Date 11/16/18 Type of Consultation: cv Requesting Provider: DYLON WALLS MD Subjective Cardiology follow up note Sl DW/ Staff pt is still getting confused and agitated no report of any chest pain or pressure or palpitations but pt is a very poor historian s/p I/D 11/17 EGD 11.18.18 O: General: Elderly frail male in no acute distress HEENT: NC/AT. pupils are equal. round. NECK: NO JVD. no stridor. CV: RRR. systolic murmur; no gallop or rubs. PULM: no wheezing or rhonchi. GI: SOFT, NT, ND, no rebound or guarding Extremity: Right upper extremity is covered with dressing neuro: awake but confused Psych: calm now rectal: deferred CXR 11/22: 1. Left lung interstitial opacities may reflect edema or pneumonia. Findings are new when compared to the prior examination. 2. Mild cardiomegaly and aortic atherosclerosis. 3. Left chest Perma-Cath with tip in the lower SVC. review of old chart shows ECHO done Oct 2018: Normal left ventricular systolic function. Normal left ventricular cavity size. Moderate concentric left ventricular hypertrophy. Ejection fraction is visually estimated at 65 %. Abnormal Diastolic Function. Mitral valve leaflets appear moderately thickened. Moderate mitral annular calcification. Trace mitral regurgitation. Aortic valve not well visualized. No hemodynamically significant aortic stenosis by doppler. Aortic sclerosis without significant stenosis. Aortic cusps appear mildly calcified. Mild to moderate aortic valve regurgita tion. Estimated peak PA systolic pressure 40 mmHg. Tricuspid valve appears moderately thickened. There is mild tricuspid regurgitation. Objective Vital Signs Date Temp Pulse Resp B/P (MAP) Pulse Ox O2 O2 Flow FiO2 Time Delivery Rate 11/26/18 98.7 92 18 143/71 93 19:30 (95) 11/26/18 Room Air 11:40 Intake and Output 11/25/18 11/25/18 11/26/18 1414:59 22:59 06:59 IntakeIntake Total 50 ml 1070 ml 100 ml BalanceBalance 50 ml 1070 ml 100 ml Results/Medications Result Diagram: 11/26/18 0434 11/26/18 043 Results 24 hrs Laboratory Tests Test 11/26/18 04:34 11/26/18 08:36 11/26/18 11:41 White Blood Count 8.2 Red Blood Count 2.66 L Hemoglobin 7.2 L Hematocrit 23.0 L Mean Corpuscular Volume 86.5 Mean Corpuscular Hemoglobin 27.1 L Mean Corpuscular Hemoglobin Concent 31.3 L Red Cell Distribution Width 16.6 H Platelet Count 196 Mean Platelet Volume 11.8 H Immature Granulocytes % 1.100 H Neutrophils % 62.4 Lymphocytes % 14.4 L Monocytes % 15.7 H Eosinophils % 6.0 Basophils % 0.4 Nucleated Red Blood Cells % 0.6 H Immature Granulocytes # 0.090 H Neutrophils # 5.1 Lymphocytes # 1.2 Monocytes # 1.3 H Eosinophils # 0.5 Basophils # 0.0 Nucleated Red Blood Cells # 0.1 H Sodium Level 135 Potassium Level 4.1 Chloride Level 98 Carbon Dioxide Level 30 Anion Gap 7 Blood Urea Nitrogen 44 #H Creatinine 2.39 H Est Glomerular Filtrat Rate mL/min Glucose Level 120 Calcium Level 8.4 Phosphorus Level 1.8 L Magnesium Level 2.4 Bedside Glucose 132 140 Medications Current Medications IV Flush (NS 3 ml) 3 ml PER PROTOCOL IV ; Start 11/16/18 at 09:00 Ondansetron HCl (Zofran Inj) 4 mg Q6H PRN IV NAUSEA AND/OR VOMITING; Start 11/16/18 at 09:00 Acetaminophen (Tylenol Tab) 650 mg Q6H PRN PO PAIN LEVEL 1-3 OR FEVER Last administered on 11/24/18at 20:19; Admin Dose 650 MG; Start 11/16/18 at 09:00 Docusate Sodium (Colace) 100 mg Q12H PRN PO CONSTIPATION; Start 11/16/18 at 09:00 Magnesium Hydroxide (Milk Of Mag) 30 ml DAILY PRN PO CONSTIPATION; Start 11/16/18 at 09:00 Folic Acid (Folic Acid) 1 mg DAILY GTB Last administered on 11/26/18at 08:32; Admin Dose 1 MG; Start 11/16/18 at 09:00 Albuterol/ Ipratropium (Duoneb) 3 ml Q6 PRN HHN sob; Start 11/16/18 at 09:00 Linagliptin (Tradjenta) 5 mg DAILY GTB Last administered on 11/26/18 08:37; Admin Dose 5 MG; Start 11/16/18 at 09:00 Lorazepam (Ativan) 1 mg HS PRN GTB ANXIETY Last administered on 11/24/18 20:19; Admin Dose 1 MG; Start 11/16/18 at 09:00 Quetiapine Fumarate (Seroquel) 25 mg BID GTB Last administered on 11/26/18 20:52; Admin Dose 25 MG; Start 11/16/18 at 09:00 Senna (Senokot) 1 tab BID PO Last administered on 11/26/18 20:52; Admin Dose 1 TAB; Start 11/16/18 at 09:00 Valproate Sodium (Depakene Liquid Cup) 250 mg Q8 PO Last administered on 11/26/18 14:17; Admin Dose 250 MG; Start 11/16/18 at 14:00 Sodium Chloride (NS) -To prime the dialy... DIRECTED FOR HD PRN IV SBP<90; Start 11/16/18 at 15:00 Hydralazine HCl (Apresoline) 10 mg Q4H PRN IV ELEVATED BLOOD PRESSURE Last administered on 11/17/18 14:57; Admin Dose 10 MG; Start 11/17/18 at 10:30 Acetaminophen/ Hydrocodone Bitart ([place] (5/325)) 1 tab Q3H PRN PO MODERATE PAIN LEVEL 4-6 Last administered on 11/22/18 17:07; Admin Dose 1 TAB; Start 11/17/18 at 14:30 Hydralazine HCl (Apresoline) 25 mg Q8 PO Last administered on 11/26/18 14:17; Admin Dose 25 MG; Start 11/18/18 at 06:00 Metoprolol Tartrate (Lopressor) 50 mg BID GTB Last administered on 11/26/18 20:52; Admin Dose 50 MG; Start 11/18/18 at 09:00 Albumin Human 50 ml @ 100 mls/hr WITH DIALYSIS PRN IV SBP<90 Last administered on 11/22/18 11:25; Admin Dose 100 MLS/HR; Start 11/18/18 at 14:30 Morphine Sulfate (morphine) 6 mg Q4H PRN PO SEVERE PAIN LEVEL 7-10 Last administered on 1/18/19at 00:39; Admin Dose 6 MG; Start 11/18/18 at 23:00 Docusate Sodium (Colace Liquid Cup) 100 mg DAILY GTB Last administered on 11/26/18at 08:33; Admin Dose 100 MG; Start 11/19/18 at 09:30 Guaifenesin/ Dextromethorphan (Robitussin Dm Liquid Cup) 5 ml Q4H PRN PO cough Last administered on 11/23/18at 21:50; Admin Dose 5 ML; Start 11/20/18 at 14:00 Amlodipine Besylate (Norvasc) 2.5 mg BID GTB Last administered on 11/26/18at 20 :53; Admin Dose 2.5 MG; Start 11/22/18 at 21:00 Vancomycin HCl (Vanco Iv Per Pharmacy) VANCOMYCIN PER PHARMACY PER PROTOCOL XX ; Start 11/23/18 at 12:00 Meropenem/Sodium Chloride 50 ml @ 100 mls/hr Q24H IVPB Last administered on 11/26/18at 13:30; Admin Dose 100 MLS/HR; Start 11/24/18 at 13:00 Multivit/Ca Carb/ B Cmplx/FA/Prenat (Kianna-Roque) 1 tab DAILY GTB Last administered on 11/26/18at 08:32; Admin Dose 1 TAB; Start 11/24/18 at 09:00 Lansoprazole (Prevacid) 30 mg DAILY GTB Last administered on 11/26/18at 08:32; Admin Dose 30 MG; Start 11/26/18 at 09:00 Ferrous Sulfate (Ferrous Sulfate (Ec)) 325 mg BID PO Last administered on 11/26/18at 20:52; Admin Dose 325 MG; Start 11/25/18 at 21:00 Acetaminophen (Tylenol Supp) 650 mg Q4H PRN [place] MILD PAIN(1-3) OR TEMP>38C Last administered on 11/26/18at 08:32; Admin Dose 650 MG; Start 11/26/18 at 08:30 Miscellaneous Information (*Rx Drug Level Order Reminder*) RANDOM VANCO LEVEL... ONCE ONCE XX ; Start 11/27/18 at 05:00; Stop 11/27/18 at 05:01 Assessment/Plan Chief Complaint/Hosp Course Cardiovascular preop evaluation Right hand hematoma: Status post IND now Renal failure on dialysis Hypertension Dementia Anemia Possible GI bleed: Status post EGD AI Recommendations: transfusion with HD prn Dialysis as per renal team Neuro workup and treatment as per internal medicine Thank you for his referral. We will continue to follow along with you as needed CHRISTEN ESCOBEDO MD [facility] CHRISTEN ESCOBEDO MD Nov 26, 2018 21:07
[2018-11-27] MEDS: morphine LIQ (10 MG/5 ML) CUP PO PRN (00:35)
[2018-11-27] MEDS: VALPROIC ACID LIQUID CUP 250 MG/5 ML CUP PO SCH ×3 (06:24→22:41)
[2018-11-27 07:27] VITALS: BP 137/94; PULSE 89; RESP 16
[2018-11-27 08:00] VITALS: BP 110/46; PULSE 85; RESP 17
--- NOTE | 2018-11-27 08:02 | CONS ---
Date/Time of Note Date/Time of Note DATE: 11/27/18 TIME: 08:01 Assessment/Plan Assessment/Plan Assessment/Plan 83 yo female in ESRD on HD presents for melena and anemia and also found to have edematous Rt hand/wrist 1. UGIB manifested through melena and anemia -no melena noted or GI bleeding noted by nursing staff 2. Anemia, acute on chronic, acute likely due to blood loss in rt hand -Hgb 6.8->10.6->9.2->8.3 -No evidence of active GI bleeding, consider etiology of blood loss anemia to be from hematoma in hand -s/p 2 units with HD on 11/17 -Fe wnl, TIBC low, Ferritin, folate, b12 high, FOB neg 3. ESRD on HD -receiving HD currently 4. Hematoma of Rt hand and wrist -I and D drainage by Dr. Dean 11/17 5. Dysphagia -on tube feeds and pureed nectar for oral gratification 6. DM2 7. HTN 8. H/O diastolic dysfunction heart failure 9. S/P EGD 11/18 10. Moderate gastritis with no bleeding noted. 11. Hospital acquired pneumonia- concern for aspiration Gastric biopsy results: Stomach, biopsy: -- Antral and oxyntic mucosa showing minimal plasma cell infiltration and small focus of intestinal metaplasia. -- No Helicobacter pylori is identified in Giemsa stain (positive control concurrently reviewed). -- No evidence of dysplasia or malignancy. Plan: Cont abx Continue present care Monitor HH closely and for active GI bleeding PPI qd Result Diagram: 11/27/18 0444 11/27/18 0444 Results 24hrs Laboratory Tests Test 11/26/18 08:36 11/26/18 11:41 11/27/18 04:44 Bedside Glucose 132 140 White Blood Count 6.8 Red Blood Count 2.96 L Hemoglobin 8.2 L Hematocrit 25.7 L Mean Corpuscular Volume 86.8 Mean Corpuscular Hemoglobin 27.7 L Mean Corpuscular Hemoglobin Concent 31.9 L Red Cell Distribution Width 16.1 H Platelet Count 172 Mean Platelet Volume 12.0 H Immature Granulocytes % 2.100 H Neutrophils % 59.1 Lymphocytes % 14.9 L Monocytes % 18.6 H Eosinophils % 4.9 Basophils % 0.4 Nucleated Red Blood Cells % 0.6 H Immature Granulocytes # 0.140 H Neutrophils # 4.0 Lymphocytes # 1.0 Monocytes # 1.3 H Eosinophils # 0.3 Basophils # 0.0 Nucleated Red Blood Cells # 0.0 Sodium Level 134 L Potassium Level 4.2 Chloride Level 97 Carbon Dioxide Level 32 H Anion Gap 5 Blood Urea Nitrogen 26 #H Creatinine 1.68 H Est Glomerular Filtrat Rate mL/min Glucose Level 97 Calcium Level 8.0 L Random Vancomycin Level 13.3 Consultation Date/Type/Reason Admit Date/Time Nov 16, 2018 at 05:51 Initial Consult Date 11/16/18 Requesting Provider: DYLON WALLS MD 24 HR Interval Summary Constitutional: no complaints, improved, disoriented Exam/Review of Systems Vital Signs Vitals Vital Signs Date Temp Pulse Resp B/P (MAP) Pulse Ox O2 O2 Flow FiO2 Time Delivery Rate 11/27/18 99.2 89 16 137/94 93 Room Air 07:27 (108) 11/27/18 21 00:43 Intake and Output 11/26/18 11/26/18 11/27/18 1515:00 23:00 07:00 IntakeIntake Total 1511 ml 50 ml OutputOutput Total 400 ml BalanceBalance -400 ml 1511 ml 50 ml Exam Constitutional: alert, oriented, well developed Psych: no complaints, nl mood/affect Head: normocephalic, atraumatic Eyes: nl conjunctiva, EOMI, nl lids, nl sclera, PERRL ENMT: nl external ears & nose, nl lips & teeth, nl nasal mucosa & septum Neck: supple, non-tender Respiratory: clear to auscultation, normal air movement Cardiovascular: regular rate and rhythm, nl pulses Gastrointestinal: soft, nl liver, spleen, non-tender Musculoskeletal: nl extremities to inspection, nl gait and stance Extremities: normal pulses 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: [employer] II-XII intact, nl mental status, nl speech, nl strength Skin: nl turgor; No rash or lesions Lymph: nl lymph nodes Medications Medications Current Medications IV Flush (NS 3 ml) 3 ml PER PROTOCOL IV ; Start 11/16/18 at 09:00 Ondansetron HCl (Zofran Inj) 4 mg Q6H PRN IV NAUSEA AND/OR VOMITING; Start 11/16/18 at 09:00 Acetaminophen (Tylenol Tab) 650 mg Q6H PRN PO PAIN LEVEL 1-3 OR FEVER Last administered on 11/24/18 20:19; Admin Dose 650 MG; Start 11/16/18 at 09:00 Docusate Sodium (Colace) 100 mg Q12H PRN PO CONSTIPATION; Start 11/16/18 at 09:00 Magnesium Hydroxide (Milk Of Mag) 30 ml DAILY PRN PO CONSTIPATION; Start 11/16/18 at 09:00 Folic Acid (Folic Acid) 1 mg DAILY GTB Last administered on 11/26/18 08:32; Admin Dose 1 MG; Start 11/16/18 at 09:00 Albuterol/ Ipratropium (Duoneb) 3 ml Q6 PRN HHN sob; Start 11/16/18 at 09:00 Linagliptin (Tradjenta) 5 mg DAILY GTB Last administered on 11/26/18 08:37; Admin Dose 5 MG; Start 11/16/18 at 09:00 Lorazepam (Ativan) 1 mg HS PRN GTB ANXIETY Last administered on 11/24/18 20:19; Admin Dose 1 MG; Start 11/16/18 at 09:00 Quetiapine Fumarate (Seroquel) 25 mg BID GTB Last administered on 11/26/18 20:52; Admin Dose 25 MG; Start 11/16/18 at 09:00 Senna (Senokot) 1 tab BID PO Last administered on 11/26/18 20:52; Admin Dose 1 TAB; Start 11/16/18 at 09:00 Valproate Sodium (Depakene Liquid Cup) 250 mg Q8 PO Last administered on 11/27/18 06:24; Admin Dose 250 MG; Start 11/16/18 at 14:00 Sodium Chloride (NS) -To prime the dialy... DIRECTED FOR HD PRN IV SBP<90; Start 11/16/18 at 15:00 Hydralazine HCl (Apresoline) 10 mg Q4H PRN IV ELEVATED BLOOD PRESSURE Last administered on 11/17/18 14:57; Admin Dose 10 MG; Start 11/17/18 at 10:30 Acetaminophen/ Hydrocodone Bitart ([place] (5/325)) 1 tab Q3H PRN PO MODERATE PAIN LEVEL 4-6 Last administered on 11/22/18 17:07; Admin Dose 1 TAB; Start 11/17/18 at 14:30 Hydralazine HCl (Apresoline) 25 mg Q8 PO Last administered on 11/27/18 06:25; Admin Dose 25 MG; Start 11/18/18 at 06:00 Metoprolol Tartrate (Lopressor) 50 mg BID GTB Last administered on 11/26/18 20:52; Admin Dose 50 MG; Start 11/18/18 at 09:00 Albumin Human 50 ml @ 100 mls/hr WITH DIALYSIS PRN IV SBP<90 Last administered on 11/22/18 11:25; Admin Dose 100 MLS/HR; Start 11/18/18 at 14:30 Morphine Sulfate (morphine) 6 mg Q4H PRN PO SEVERE PAIN LEVEL 7-10 Last administered on 11/27/18 00:35; Admin Dose 6 MG; Start 11/18/18 at 23:00 Docusate Sodium (Colace Liquid Cup) 100 mg DAILY GTB Last administered on 11/26/18 08:33; Admin Dose 100 MG; Start 11/19/18 at 09:30 Guaifenesin/ Dextromethorphan (Robitussin Dm Liquid Cup) 5 ml Q4H PRN PO cough Last administered on 11/23/18 21:50; Admin Dose 5 ML; Start 11/20/18 at 14:00 Amlodipine Besylate (Norvasc) 2.5 mg BID GTB Last administered on 11/26/18 20:53; Admin Dose 2.5 MG; Start 11/22/18 at 21:00 Vancomycin HCl (Vanco Iv Per Pharmacy) VANCOMYCIN PER PHARMACY PER PROTOCOL XX ; Start 11/23/18 at 12:00 Meropenem/Sodium Chloride 50 ml @ 100 mls/hr Q24H IVPB Last administered on 11/26/18 13:30; Admin Dose 100 MLS/HR; Start 11/24/18 at 13:00 Multivit/Ca Carb/ B Cmplx/FA/Prenat ([place]ianna-Roque) 1 tab DAILY GTB Last administered on 11/26/18 08:32; Admin Dose 1 TAB; Start 11/24/18 at 09:00 Lansoprazole (Prevacid) 30 mg DAILY GTB Last administered on 11/26/18 08:32; Admin Dose 30 MG; Start 11/26/18 at 09:00 Ferrous Sulfate (Ferrous Sulfate (Ec)) 325 mg BID PO Last administered on 11/26/18at 20:52; Admin Dose 325 MG; Start 11/25/18 at 21:00 Acetaminophen (Tylenol Supp) 650 mg Q4H PRN [place] MILD PAIN(1-3) OR TEMP>38C Last administered on 11/26/18 08:32; Admin Dose 650 MG; Start 11/26/18 at 08:30 CHRISS WELCH MD Nov 27, 2018 08:02
[2018-11-27] MEDS: QUETIAPINE 25 MG TAB GTB SCH ×2 (08:11→21:12)
[2018-11-27] MEDS: FOLIC ACID 1 MG TAB GTB SCH (08:11)
[2018-11-27] MEDS: LANSOPRAZOLE 30 MG CAP GTB SCH (08:11)
[2018-11-27] MEDS: SENNA TAB PO SCH ×2 (08:11→21:12)
[2018-11-27] MEDS: MULTIVIT/CA CARB/B CMPLX/FA TAB GTB SCH (08:11)
[2018-11-27] MEDS: FERROUS SULFATE (EC) 325 MG TAB PO SCH ×2 (08:11→21:12)
[2018-11-27] MEDS: DOCUSATE SODIUM 10 MG/ML (10ML CUP) GTB SCH (08:11)
[2018-11-27] MEDS: HYDROCODONE/APAP (5/325) TAB PO PRN (08:12)
[2018-11-27] MEDS: LINAGLIPTIN 5 MG TABLET GTB SCH (08:12)
[2018-11-27] MEDS: AMLODIPINE 2.5 MG TAB GTB SCH ×2 (08:13→21:13)
[2018-11-27] MEDS: METOPROLOL 50 MG TAB GTB SCH ×2 (08:13→21:13)
--- NOTE | 2018-11-27 11:36 | CONS ---
[facility] HCIS Consult Follow-up Patient Name: Zahira White Unit Number: [id number] Date of : 1935 Patient Status: Admitted Inpatient Attending Doctor: Kemar Walls MD Edit: JOSE RAUL ANDREWS MD on 11/27/18 @ 15:57 HD CENTER CAN DO VANCO/GENTAMYCIN Date/Time of Note Date/Time of Note DATE: 11/27/18 TIME: 11:35 Assessment/Plan Assessment/Plan Hospital Course 1. Right hand swelling, likely secondary to hematoma, questionable fall. with compression s/p I and D on 11/17/18 2. Gastrointestinal bleed with melena. 3. Hypertension. 4. Diabetes. 5. End-stage renal disease on hemodialysis. 6. History of falls. 7. Vascular dementia. 8. History of sepsis with VRE. 9. Dysphagia, status post G-tube. 10. History of hip fracture. 11. Thrombocytopenia. 12. Atherosclerotic heart disease. Assessment/Plan - ok for case amnagement arrange A/b infusion after HD session -HD service may provide Vanco/Meropenem injection -HD today - K supplement as needed - cw vancomycin/meropenem - Monitor fevers - Hold BP meds before hd - renally dose all meds Result Diagram: 11/27/18 0444 11/27/18 0444 Results 24hrs Laboratory Tests Test 11/26/18 11:41 11/27/18 04:44 11/27/18 08:10 Bedside Glucose 140 125 White Blood Count 6.8 Red Blood Count 2.96 L Hemoglobin 8.2 L Hematocrit 25.7 L Mean Corpuscular Volume 86.8 Mean Corpuscular Hemoglobin 27.7 L Mean Corpuscular Hemoglobin Concent 31.9 L Red Cell Distribution Width 16.1 H Platelet Count 172 Mean Platelet Volume 12.0 H Immature Granulocytes % 2.100 H Neutrophils % 59.1 Lymphocytes % 14.9 L Monocytes % 18.6 H Eosinophils % 4.9 Basophils % 0.4 Nucleated Red Blood Cells % 0.6 H Immature Granulocytes # 0.140 H Neutrophils # 4.0 Lymphocytes # 1.0 Monocytes # 1.3 H Eosinophils # 0.3 Basophils # 0.0 Nucleated Red Blood Cells # 0.0 Sodium Level 134 L Potassium Level 4.2 Chloride Level 97 Carbon Dioxide Level 32 H Anion Gap 5 Blood Urea Nitrogen 26 #H Creatinine 1.68 H Est Glomerular Filtrat Rate mL/min Glucose Level 97 Calcium Level 8.0 L Random Vancomycin Level 13.3 Consultation Date/Type/Reason Admit Date/Time Nov 16, 2018 at 05:51 Initial Consult Date 11/16/18 Type of Consult nephrology Requesting Provider: KEMAR WALLS MD 24 HR Interval Summary Constitutional: disoriented Exam/Review of Systems Vital Signs Vitals Vital Signs Date Temp Pulse Resp B/P (MAP) Pulse Ox O2 O2 Flow FiO2 Time Delivery Rate 11/27/18 98.1 85 17 110/46 91 Room Air 08:00 (67) 11/27/18 21 00:43 Intake and Output 11/26/18 11/26/18 11/27/18 1515:00 23:00 07:00 IntakeIntake Total 1511 ml 50 ml OutputOutput Total 400 ml BalanceBalance -400 ml 1511 ml 50 ml Exam Constitutional: frail Eyes: nl conjunctiva Neck: supple Respiratory: diminished breath sounds Gastrointestinal: soft, other (G tube) 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: confused Medications Medications Current Medications IV Flush (NS 3 ml) 3 ml PER PROTOCOL IV ; Start 11/16/18 at 09:00 Ondansetron HCl (Zofran Inj) 4 mg Q6H PRN IV NAUSEA AND/OR VOMITING; Start 11/16/18 at 09:00 Acetaminophen (Tylenol Tab) 650 mg Q6H PRN PO PAIN LEVEL 1-3 OR FEVER Last administered on 11/24/18at 20:19; Admin Dose 650 MG; Start 11/16/18 at 09:00 Docusate Sodium (Colace) 100 mg Q12H PRN PO CONSTIPATION; Start 11/16/18 at 09:00 Magnesium Hydroxide (Milk Of Mag) 30 ml DAILY PRN PO CONSTIPATION; Start 11/16/18 at 09:00 Folic Acid (Folic Acid) 1 mg DAILY GTB Last administered on 11/27/18 08:11; Admin Dose 1 MG; Start 11/16/18 at 09:00 Albuterol/ Ipratropium (Duoneb) 3 ml Q6 PRN HHN sob; Start 11/16/18 at 09:00 Linagliptin (Tradjenta) 5 mg DAILY GTB Last administered on 11/27/18 08:12; Admin Dose 5 MG; Start 11/16/18 at 09:00 Lorazepam (Ativan) 1 mg HS PRN GTB ANXIETY Last administered on 11/24/18 20:19; Admin Dose 1 MG; Start 11/16/18 at 09:00 Quetiapine Fumarate (Seroquel) 25 mg BID GTB Last administered on 11/27/18 08:11; Admin Dose 25 MG; Start 11/16/18 at 09:00 Senna (Senokot) 1 tab BID PO Last administered on 11/27/18 08:11; Admin Dose 1 TAB; Start 11/16/18 at 09:00 Valproate Sodium (Depakene Liquid Cup) 250 mg Q8 PO Last administered on 11/27/18 06:24; Admin Dose 250 MG; Start 11/16/18 at 14:00 Sodium Chloride (NS) -To prime the dialy... DIRECTED FOR HD PRN IV SBP<90; Start 11/16/18 at 15:00 Hydralazine HCl (Apresoline) 10 mg Q4H PRN IV ELEVATED BLOOD PRESSURE Last administered on 11/17/18at 14:57; Admin Dose 10 MG; Start 11/17/18 at 10:30 Acetaminophen/ Hydrocodone Bitart ([place] (5/325)) 1 tab Q3H PRN PO MODERATE PAIN LEVEL 4-6 Last administered on 11/27/18 08:12; Admin Dose 1 TAB; Start 11/17/18 at 14:30 Hydralazine HCl (Apresoline) 25 mg Q8 PO Last administered on 11/27/18 06:25; Admin Dose 25 MG; Start 11/18/18 at 06:00 Metoprolol Tartrate (Lopressor) 50 mg BID GTB Last administered on 11/26/18 20:52; Admin Dose 50 MG; Start 11/18/18 at 09:00 Albumin Human 50 ml @ 100 mls/hr WITH DIALYSIS PRN IV SBP<90 Last administered on 11/22/18 11:25; Admin Dose 100 MLS/HR; Start 11/18/18 at 14:30 Morphine Sulfate (morphine) 6 mg Q4H PRN PO SEVERE PAIN LEVEL 7-10 Last adm inistered on 11/27/18 00:35; Admin Dose 6 MG; Start 11/18/18 at 23:00 Docusate Sodium (Colace Liquid Cup) 100 mg DAILY GTB Last administered on 11/27/18 08:11; Admin Dose 100 MG; Start 11/19/18 at 09:30 Guaifenesin/ Dextromethorphan (Robitussin Dm Liquid Cup) 5 ml Q4H PRN PO cough Last administered on 11/23/18 21:50; Admin Dose 5 ML; Start 11/20/18 at 14:00 Amlodipine Besylate (Norvasc) 2.5 mg BID GTB Last administered on 11/26/18 20:53; Admin Dose 2.5 MG; Start 11/22/18 at 21:00 Vancomycin HCl (Vanco Iv Per Pharmacy) VANCOMYCIN PER PHARMACY PER PROTOCOL XX ; Start 11/23/18 at 12:00 Meropenem/Sodium Chloride 50 ml @ 100 mls/hr Q24H IVPB Last administered on 11/26/18 13:30; Admin Dose 100 MLS/HR; Start 11/24/18 at 13:00 Multivit/Ca Carb/ B Cmplx/FA/Prenat (Kianna-Roque) 1 tab DAILY GTB Last administered on 11/27/18 08:11; Admin Dose 1 TAB; Start 11/24/18 at 09:00 Lansoprazole (Prevacid) 30 mg DAILY GTB Last administered on 11/27/18 08:11; Admin Dose 30 MG; Start 11/26/18 at 09:00 Ferrous Sulfate (Ferrous Sulfate (Ec)) 325 mg BID PO Last administered on 11/27/18 08:11; Admin Dose 325 MG; Start 11/25/18 at 21:00 Acetaminophen (Tylenol Supp) 650 mg Q4H PRN [place] MILD PAIN(1-3) OR TEMP>38C Last administered on 11/26/18 08:32; Admin Dose 650 MG; Start 11/26/18 at 08:30 Vancomycin/Sodium Chloride 250 ml @ 125 mls/hr Q72H IVPB ; Start 11/27/18 at 16:00 FLAVIO CLAYTON Nov 27, 2018 11:36
--- NOTE | 2018-11-27 12:31 | CONS ---
Date/Time of Note Date/Time of Note DATE: 11/27/18 TIME: 12:28 Assessment/Plan Assessment/Plan Result Diagram: 11/27/18 0444 11/27/18 0444 Results 24hrs Laboratory Tests Test 11/27/18 04:44 11/27/18 08:10 White Blood Count 6.8 Red Blood Count 2.96 L Hemoglobin 8.2 L Hematocrit 25.7 L Mean Corpuscular Volume 86.8 Mean Corpuscular Hemoglobin 27.7 L Mean Corpuscular Hemoglobin Concent 31.9 L Red Cell Distribution Width 16.1 H Platelet Count 172 Mean Platelet Volume 12.0 H Immature Granulocytes % 2.100 H Neutrophils % 59.1 Lymphocytes % 14.9 L Monocytes % 18.6 H Eosinophils % 4.9 Basophils % 0.4 Nucleated Red Blood Cells % 0.6 H Immature Granulocytes # 0.140 H Neutrophils # 4.0 Lymphocytes # 1.0 Monocytes # 1.3 H Eosinophils # 0.3 Basophils # 0.0 Nucleated Red Blood Cells # 0.0 Sodium Level 134 L Potassium Level 4.2 Chloride Level 97 Carbon Dioxide Level 32 H Anion Gap 5 Blood Urea Nitrogen 26 #H Creatinine 1.68 H Est Glomerular Filtrat Rate mL/min Glucose Level 97 Calcium Level 8.0 L Random Vancomycin Level 13.3 Bedside Glucose 125 Consultation Date/Type/Reason Admit Date/Time Nov 16, 2018 at 05:51 Initial Consult Date SUBJECTIVE: Patient is awake, alert, afebrile. No acute events over night. VS: stable. T: 98.1 LABS: reviewed. WBC-6.8 Microbiology: Intraoperative cultures preliminary negative Antimicrobials: Vancomycin, meropenem Indwelling: Left chest permacath, PEG PHYSICAL EXAM: GEN: Chronically ill-appearing elderly woman who is awake, confused, in no distress. HENT: Head atraumatic normocephalic. Neck is supple. PULM: Chest rise symmetrical breath sounds diminished bases. Heart: S1-S2. Abdomen soft bowel sounds present Extremities without R FA edema/erythema Assessment: 1. Right hand hematoma, status post I&D 11/17/18 2. Status post VRE bacteremia, status post new Pcath 3. End-stage renal disease, hemodialysis dependent 4. Dementia 5. Failure to thrive 6. Diabetes 8. Anemia 9. Health care Acquired PNA -improving Plan: Patient remains stable. CXR noted. Continue current antibiotics and aspiration precautions. Requesting Provider: DYLON WALLS MD Exam/Review of Systems Vital Signs Vitals Vital Signs Date Temp Pulse Resp B/P (MAP) Pulse Ox O2 O2 Flow FiO2 Time Delivery Rate 11/27/18 98.1 85 17 110/46 91 Room Air 08:00 (67) 11/27/18 21 00:43 Intake and Output 11/26/18 11/26/18 11/27/18 1515:00 23:00 07:00 IntakeIntake Total 1511 ml 50 ml OutputOutput Total 400 ml BalanceBalance -400 ml 1511 ml 50 ml Medications Medications Current Medications IV Flush (NS 3 ml) 3 ml PER PROTOCOL IV ; Start 11/16/18 at 09:00 Ondansetron HCl (Zofran Inj) 4 mg Q6H PRN IV NAUSEA AND/OR VOMITING; Start 11/16/18 at 09:00 Acetaminophen (Tylenol Tab) 650 mg Q6H PRN PO PAIN LEVEL 1-3 OR FEVER Last administered on 11/24/18 20:19; Admin Dose 650 MG; Start 11/16/18 at 09:00 Docusate Sodium (Colace) 100 mg Q12H PRN PO CONSTIPATION; Start 11/16/18 at 09:00 Magnesium Hydroxide (Milk Of Mag) 30 ml DAILY PRN PO CONSTIPATION; Start 11/16/18 at 09:00 Folic Acid (Folic Acid) 1 mg DAILY GTB Last administered on 11/27/18at 08:11; Admin Dose 1 MG; Start 11/16/18 at 09:00 Albuterol/ Ipratropium (Duoneb) 3 ml Q6 PRN HHN sob; Start 11/16/18 at 09:00 Linagliptin (Tradjenta) 5 mg DAILY GTB Last administered on 11/27/18at 08:12; Admin Dose 5 MG; Start 11/16/18 at 09:00 Lorazepam (Ativan) 1 mg HS PRN GTB ANXIETY Last administered on 11/24/18at 20:19; Admin Dose 1 MG; Start 11/16/18 at 09:00 Quetiapine Fumarate (Seroquel) 25 mg BID GTB Last administered on 11/27/18at 08:11; Admin Dose 25 MG; Start 11/16/18 at 09:00 Senna (Senokot) 1 tab BID PO Last administered on 11/27/18 08:11; Admin Dose 1 TAB; Start 11/16/18 at 09:00 Valproate Sodium (Depakene Liquid Cup) 250 mg Q8 PO Last administered on 11/27/18 06:24; Admin Dose 250 MG; Start 11/16/18 at 14:00 Sodium Chloride (NS) -To prime the dialy... DIRECTED FOR HD PRN IV SBP<90; Start 11/16/18 at 15:00 Hydralazine HCl (Apresoline) 10 mg Q4H PRN IV ELEVATED BLOOD PRESSURE Last administered on 11/17/18 14:57; Admin Dose 10 MG; Start 11/17/18 at 10:30 Acetaminophen/ Hydrocodone Bitart ([place] (5/325)) 1 tab Q3H PRN PO MODERATE PAIN LEVEL 4-6 Last administered on 11/27/18 08:12; Admin Dose 1 TAB; Start 11/17/18 at 14:30 Hydralazine HCl (Apresoline) 25 mg Q8 PO Last administered on 11/27/18 06:25; Admin Dose 25 MG; Start 11/18/18 at 06:00 Metoprolol Tartrate (Lopressor) 50 mg BID GTB Last administered on 11/26/18 20:52; Admin Dose 50 MG; Start 11/18/18 at 09:00 Albumin Human 50 ml @ 100 mls/hr WITH DIALYSIS PRN IV SBP<90 Last administered on 11/22/18 11:25; Admin Dose 100 MLS/HR; Start 11/18/18 at 14:30 Morphine Sulfate (morphine) 6 mg Q4H PRN PO SEVERE PAIN LEVEL 7-10 Last administered on 11/27/18 00:35; Admin Dose 6 MG; Start 11/18/18 at 23:00 Docusate Sodium (Colace Liquid Cup) 100 mg DAILY GTB Last administered on 11/27/18 08:11; Admin Dose 100 MG; Start 11/19/18 at 09:30 Guaifenesin/ Dextromethorphan (Robitussin Dm Liquid Cup) 5 ml Q4H PRN PO cough Last administered on 11/23/18 21:50; Admin Dose 5 ML; Start 11/20/18 at 14:00 Amlodipine Besylate (Norvasc) 2.5 mg BID GTB Last administered on 11/26/18 20:53; Admin Dose 2.5 MG; Start 11/22/18 at 21:00 Vancomycin HCl (Vanco Iv Per Pharmacy) VANCOMYCIN PER PHARMACY PER PROTOCOL XX ; Start 11/23/18 at 12:00 Meropenem/Sodium Chloride 50 ml @ 100 mls/hr Q24H IVPB Last administered on 11/26/18 13:30; Admin Dose 100 MLS/HR; Start 11/24/18 at 13:00 Multivit/Ca Carb/ B Cmplx/FA/Prenat (Kianna-Roque) 1 tab DAILY GTB Last administered on 11/27/18 08:11; Admin Dose 1 TAB; Start 11/24/18 at 09:00 Lansoprazole (Prevacid) 30 mg DAILY GTB Last administered on 11/27/18 08:11; Admin Dose 30 MG; Start 11/26/18 at 09:00 Ferrous Sulfate (Ferrous Sulfate (Ec)) 325 mg BID PO Last administered on 11/27/18 08:11; Admin Dose 325 MG; Start 11/25/18 at 21:00 Acetaminophen (Tylenol Supp) 650 mg Q4H PRN [place] MILD PAIN(1-3) OR TEMP>38C Last administered on 11/26/18at 08:32; Admin Dose 650 MG; Start 11/26/18 at 08:30 Vancomycin/Sodium Chloride 250 ml @ 125 mls/hr Q72H IVPB ; Start 11/27/18 at 16:00 SCOTT SHEEHAN Nov 27, 2018 12:31
[2018-11-27] MEDS: MEROPENEM 500MG/50 ML (PMX) 50 ML IVPB SCH (12:39)
[2018-11-27 14:29] VITALS: BP 122/69; PULSE 84; RESP 18
[2018-11-27] MEDS: VANCOMYCIN 750 MG (PMX) 250 ML IVPB SCH (15:33)
[2018-11-27 20:00] VITALS: BP 114/46; PULSE 84; RESP 14
[2018-11-27 21:13] VITALS: BP 122/56
--- NOTE | 2018-11-27 21:39 | PN ---
DATE: 11/27/2018 The patient was seen. Case discussed with nursing staff. Dietary recommended to increase the bolus feeding to 4 times a day. Noted ID recommendations. Plan to switch to possible IV gentamicin and va nco that can be given during dialysis. Overall, she is responding to the new antibiotic regimen and the patient likely had an episode of aspiration pneumonia. A chest x-ray done yesterday does show in terval decreased left lung interstitial and airspace opacities. PHYSICAL EXAMINATION: VITAL SIGNS: Temperature 97.9, pulse 84, respirations 18, blood pressure ____ saturation 95% on room air. GENERAL: The patient is in no acute distress. HEENT: Normocephalic, atraumatic. Patient is frail, pale. CARDIOVASCULAR: S1, S2, regular rate. LUNGS: Clear. ABDOMEN: Soft. G-tube in place. EXTREMITIES: No clubbing, cyanosis or edema. Right hand bandaged. LABORATORY DATA: White count ____ hemoglobin 8.2, hematocrit 26, platelet count 172 with normal diff erential. Chemistry: Sodium 134, potassium 4.2, chloride 97, BUN 26, creatinine 0.68 and glucose of 97. Again, chest x-ray does show improvement. MEDICATIONS: All meds were reviewed. The patient remains on IV vancomycin and Merrem. All other me ds are otherwise reviewed. ASSESSMENT AND PLAN: This is an 83-year-old [place] female with history of end-stage renal disease, dementia, psychiatric disorder, chronic obstructive pulmonary disease, who presented with right hand severe hematoma, status post incision and drainage, also developed pneumonia likely due to aspiratio n. 1. Respiratory. Chest x-ray has improved. Continue above antibiotics. May switch to IV gentamicin and vancomycin if okay with ID. 2. Malnutrition. Increase feeding to q.i.d. if patient not eating much by mouth. 3. Cardiovascular. Vitals remain stable. 4. End-stage renal disease, dialysis 3 times a week. 5. Anemia. May benefit from Epogen. Continue transfusion as needed. Currently no evidence of blee ding, status post esophagogastroduodenoscopy. 6. Dysphagia. Continue G-tube feeding. 7. Diabetes mellitus. Glucose levels are controlled in the 100s. DISPOSITION: Home with IV antibiotics during dialysis. Case discussed with nursing staff. We will follow. Dictated By: DYLON HULL/MADAN Conf#: [id number] [facility]#: [id number]
[2018-11-28 02:00] VITALS: BP 127/51; RESP 15
[2018-11-28] MEDS: VALPROIC ACID LIQUID CUP 250 MG/5 ML CUP PO SCH ×3 (06:03→20:15)
[2018-11-28 07:48] VITALS: BP 171/73; PULSE 87; RESP 18
[2018-11-28 08:06] VITALS: BP 158/75; PULSE 75; RESP 16
--- NOTE | 2018-11-28 09:02 | PDOCDIS ---
Discharge Instructions CONDITION [id number] Patient Condition: [id number] Stable HOME CARE INSTRUCTIONS: Francesco Special Diet: [id number] Bolus GTF; Pureed Diet FOLLOW UP/APPOINTMENTS Follow-up Plan antibiotics at HD center with amikacin and vancomycin for 5 days, pharmacy to dose DYLON WALLS MD Nov 28, 2018 09:02
[2018-11-28] MEDS: DOCUSATE SODIUM 10 MG/ML (10ML CUP) GTB SCH (09:22)
[2018-11-28] MEDS: METOPROLOL 50 MG TAB GTB SCH ×2 (09:22→20:15)
[2018-11-28] MEDS: FOLIC ACID 1 MG TAB GTB SCH (09:22)
[2018-11-28] MEDS: SENNA TAB PO SCH ×2 (09:23→20:14)
[2018-11-28] MEDS: LINAGLIPTIN 5 MG TABLET GTB SCH (09:23)
[2018-11-28] MEDS: AMLODIPINE 2.5 MG TAB GTB SCH ×2 (09:23→20:15)
[2018-11-28] MEDS: LANSOPRAZOLE 30 MG CAP GTB SCH (09:23)
[2018-11-28] MEDS: FERROUS SULFATE (EC) 325 MG TAB PO SCH ×2 (09:23→20:14)
[2018-11-28] MEDS: MULTIVIT/CA CARB/B CMPLX/FA TAB GTB SCH (09:23)
[2018-11-28] MEDS: QUETIAPINE 25 MG TAB GTB SCH ×2 (09:23→20:14)
--- NOTE | 2018-11-28 10:32 | CONS ---
[facility] HCIS Consult Follow-up Patient Name: Zahira White Unit Number: [id number] Date of : 1935 Patient Status: Admitted Inpatient Attending Doctor: Kemar Walls MD Edit: JOSE RAUL ANDREWS MD on 11/28/18 @ 15:28 DC HELD DUE TO YEAST BACTERIMIA Date/Time of Note Date/Time of Note DATE: 11/28/18 TIME: 10:32 Assessment/Plan Assessment/Plan Hospital Course 1. Right hand swelling, likely secondary to hematoma, questionable fall. with compression s/p I and D on 11/17/18 2. Gastrointestinal bleed with melena. 3. Hypertension. 4. Diabetes. 5. End-stage renal disease on hemodialysis. 6. History of falls. 7. Vascular dementia. 8. History of sepsis with VRE. 9. Dysphagia, status post G-tube. 10. History of hip fracture. 11. Thrombocytopenia. 12. Atherosclerotic heart disease. Assessment/Plan - ok for case management arrange A/b infusion after HD session -HD service may provide Vanco/Meropenem injection -HD today - K supplement as needed - cw vancomycin/meropenem - Monitor fevers - Hold BP meds before hd - renally dose all meds Result Diagram: 11/28/187 11/28/187 Results 24hrs Laboratory Tests Test 11/28/18 04:27 White Blood Count 7.4 Red Blood Count 3.13 L Hemoglobin 8.6 L Hematocrit 27.5 L Mean Corpuscular Volume 87.9 Mean Corpuscular Hemoglobin 27.5 L Mean Corpuscular Hemoglobin Concent 31.3 L Red Cell Distribution Width 16.5 H Platelet Count 215 # Mean Platelet Volume 12.0 H Immature Granulocytes % 1.600 H Neutrophils % 59.4 Lymphocytes % 13.0 L Monocytes % 17.3 H Eosinophils % 8.0 H Basophils % 0.7 Nucleated Red Blood Cells % 0.4 H Immature Granulocytes # 0.120 H Neutrophils # 4.4 Lymphocytes # 1.0 Monocytes # 1.3 H Eosinophils # 0.6 H Basophils # 0.1 Nucleated Red Blood Cells # 0.0 Sodium Level 135 Potassium Level 4.3 Chloride Level 100 Carbon Dioxide Level 28 Anion Gap 7 Blood Urea Nitrogen 43 #H Creatinine 2.19 H Est Glomerular Filtrat Rate mL/min Glucose Level 133 Calcium Level 8.6 Phosphorus Level 3.0 Magnesium Level 2.4 Consultation Date/Type/Reason Admit Date/Time Nov 16, 2018 at 05:51 Initial Consult Date 11/16/18 Type of Consult nephrology Reason for Consultation Dr Stringer Requesting Provider: KEMAR WALLS MD 24 HR Interval Summary Constitutional: disoriented Exam/Review of Systems Vital Signs Vitals Vital Signs Date Temp Pulse Resp B/P (MAP) Pulse Ox O2 O2 Flow FiO2 Time Delivery Rate 11/28/18 97.6 87 18 171/73 92 Room Air 07:48 (105) 11/27/18 21 00:43 Intake and Output 11/27/18 11/27/18 11/28/18 1515:00 23:00 07:00 IntakeIntake Total 50 ml 520 ml 50 ml BalanceBalance 50 ml 520 ml 50 ml Exam left chest Permcath Neck: supple Respiratory: diminished breath sounds Cardiovascular: regular rate and rhythm Musculoskeletal: muscle weakness 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: confused Skin: ecchymosis, laceration, other Medications Medications Current Medications IV Flush (NS 3 ml) 3 ml PER PROTOCOL IV ; Start 11/16/18 at 09:00 Ondansetron HCl (Zofran Inj) 4 mg Q6H PRN IV NAUSEA AND/OR VOMITING; Start 11/16/18 at 09:00 Acetaminophen (Tylenol Tab) 650 mg Q6H PRN PO PAIN LEVEL 1-3 OR FEVER Last administered on 11/24/18at 20:19; Admin Dose 650 MG; Start 11/16/18 at 09:00 Docusate Sodium (Colace) 100 mg Q12H PRN PO CONSTIPATION; Start 11/16/18 at 09:00 Magnesium Hydroxide (Milk Of Mag) 30 ml DAILY PRN PO CONSTIPATION; Start 11/16/18 at 09:00 Folic Acid (Folic Acid) 1 mg DAILY GTB Last administered on 11/28/18at 09:22; Admin Dose 1 MG; Start 11/16/18 at 09:00 Albuterol/ Ipratropium (Duoneb) 3 ml Q6 PRN HHN sob; Start 11/16/18 at 09:00 Linagliptin (Tradjenta) 5 mg DAILY GTB Last administered on 11/28/18 09:23; Admin Dose 5 MG; Start 11/16/18 at 09:00 Lorazepam (Ativan) 1 mg HS PRN GTB ANXIETY Last administered on 11/24/18 20:19; Admin Dose 1 MG; Start 11/16/18 at 09:00 Quetiapine Fumarate (Seroquel) 25 mg BID GTB Last administered on 11/28/18 09:23; Admin Dose 25 MG; Start 11/16/18 at 09:00 Senna (Senokot) 1 tab BID PO Last administered on 11/28/18 09:23; Admin Dose 1 TAB; Start 11/16/18 at 09:00 Valproate Sodium (Depakene Liquid Cup) 250 mg Q8 PO Last administered on 11/28/18 06:03; Admin Dose 250 MG; Start 11/16/18 at 14:00 Sodium Chloride (NS) -To prime the dialy... DIRECTED FOR HD PRN IV SBP<90; Start 11/16/18 at 15:00 Hydralazine HCl (Apresoline) 10 mg Q4H PRN IV ELEVATED BLOOD PRESSURE Last administered on 11/17/18at 14:57; Admin Dose 10 MG; Start 11/17/18 at 10:30 Acetaminophen/ Hydrocodone Bitart ([place] (5/325)) 1 tab Q3H PRN PO MODERATE PAIN LEVEL 4-6 Last administered on 11/27/18at 08:12; Admin Dose 1 TAB; Start 11/17/18 at 14:30 Hydralazine HCl (Apresoline) 25 mg Q8 PO Last administered on 11/28/18at 06:10; Admin Dose 25 MG; Start 11/18/18 at 06:00 Metoprolol Tartrate (Lopressor) 50 mg BID GTB Last administered on 11/28/18at 0 9:22; Admin Dose 50 MG; Start 11/18/18 at 09:00 Albumin Human 50 ml @ 100 mls/hr WITH DIALYSIS PRN IV SBP<90 Last administered on 11/22/18 11:25; Admin Dose 100 MLS/HR; Start 11/18/18 at 14:30 Morphine Sulfate (morphine) 6 mg Q4H PRN PO SEVERE PAIN LEVEL 7-10 Last administered on 11/27/18 00:35; Admin Dose 6 MG; Start 11/18/18 at 23:00 Docusate Sodium (Colace Liquid Cup) 100 mg DAILY GTB Last administered on 11/28/18 09:22; Admin Dose 100 MG; Start 11/19/18 at 09:30 Guaifenesin/ Dextromethorphan (Robitussin Dm Liquid Cup) 5 ml Q4H PRN PO cough Last administered on 11/23/18 21:50; Admin Dose 5 ML; Start 11/20/18 at 14:00 Amlodipine Besylate (Norvasc) 2.5 mg BID GTB Last administered on 11/28/18 09:23; Admin Dose 2.5 MG; Start 11/22/18 at 21:00 Vancomycin HCl (Vanco Iv Per Pharmacy) VANCOMYCIN PER PHARMACY PER PROTOCOL XX ; Start 11/23/18 at 12:00 Meropenem/Sodium Chloride 50 ml @ 100 mls/hr Q24H IVPB Last administered on 11/27/18 12:39; Admin Dose 100 MLS/HR; Start 11/24/18 at 13:00 Multivit/Ca Carb/ B Cmplx/FA/Prenat (Kianna-Roque) 1 tab DAILY GTB Last administered on 11/28/18 09:23; Admin Dose 1 TAB; Start 11/24/18 at 09:00 Lansoprazole (Prevacid) 30 mg DAILY GTB Last administered on 11/28/18 09:23; Admin Dose 30 MG; Start 11/26/18 at 09:00 Ferrous Sulfate (Ferrous Sulfate (Ec)) 325 mg BID PO Last administered on 11/28/18 09:23; Admin Dose 325 MG; Start 11/25/18 at 21:00 Acetaminophen (Tylenol Supp) 650 mg Q4H PRN [place] MILD PAIN(1-3) OR TEMP>38C Last administered on 11/26/18 08:32; Admin Dose 650 MG; Start 11/26/18 at 08:30 Vancomycin/Sodium Chloride 250 ml @ 125 mls/hr Q72H IVPB Last administered on 11/27/18at 15:33; Admin Dose 125 MLS/HR; Start 11/27/18 at 16:00 Caspofungin 50 mg/ Sodium Chloride 250 ml @ 250 mls/hr Q24H IVPB ; Start 11/28/18 at 09:30; Status FLAVIO LR Nov 28, 2018 10:32
--- NOTE | 2018-11-28 12:01 | CONS ---
Date/Time of Note Date/Time of Note DATE: 11/28/18 TIME: 12:00 Assessment/Plan Assessment/Plan Hospital Course 83 yo female in ESRD on HD presents for melena and anemia and also found to have edematous Rt hand/wrist 1. UGIB manifested through melena and anemia -no melena noted or GI bleeding noted by nursing staff 2. Anemia, acute on chronic, acute likely due to blood loss in rt hand -Hgb 6.8->10.6->9.2->8.3 -No evidence of active GI bleeding, consider etiology of blood loss anemia to be from hematoma in hand -s/p 2 units with HD on 11/17 -Fe wnl, TIBC low, Ferritin, folate, b12 high, FOB neg 3. ESRD on HD -receiving HD currently 4. Hematoma of Rt hand and wrist -I and D drainage by Dr. Dean 11/17 5. Dysphagia -on tube feeds and pureed nectar for oral gratification 6. DM2 7. HTN 8. H/O diastolic dysfunction heart failure 9. S/P EGD 11/18 10. Moderate gastritis with no bleeding noted. 11. Hospital acquired pneumonia- concern for aspiration Gastric biopsy results: Stomach, biopsy: -- Antral and oxyntic mucosa showing minimal plasma cell infiltration and small focus of intestinal metaplasia. -- No Helicobacter pylori is identified in Giemsa stain (positive control concurrently reviewed). -- No evidence of dysplasia or malignancy. Plan: Cont abx Continue present care Monitor HH closely and for active GI bleeding PPI BID Pt examined and plan of care discussed with Dr. Baird Result Diagram: 11/28/18 0427 11/28/18 0427 Results 24hrs Laboratory Tests Test 11/28/18 04:27 White Blood Count 7.4 Red Blood Count 3.13 L Hemoglobin 8.6 L Hematocrit 27.5 L Mean Corpuscular Volume 87.9 Mean Corpuscular Hemoglobin 27.5 L Mean Corpuscular Hemoglobin Concent 31.3 L Red Cell Distribution Width 16.5 H Platelet Count 215 # Mean Platelet Volume 12.0 H Immature Granulocytes % 1.600 H Neutrophils % 59.4 Lymphocytes % 13.0 L Monocytes % 17.3 H Eosinophils % 8.0 H Basophils % 0.7 Nucleated Red Blood Cells % 0.4 H Immature Granulocytes # 0.120 H Neutrophils # 4.4 Lymphocytes # 1.0 Monocytes # 1.3 H Eosinophils # 0.6 H Basophils # 0.1 Nucleated Red Blood Cells # 0.0 Sodium Level 135 Potassium Level 4.3 Chloride Level 100 Carbon Dioxide Level 28 Anion Gap 7 Blood Urea Nitrogen 43 #H Creatinine 2.19 H Est Glomerular Filtrat Rate mL/min Glucose Level 133 Calcium Level 8.6 Phosphorus Level 3.0 Magnesium Level 2.4 Consultation Date/Type/Reason Admit Date/Time Nov 16, 2018 at 05:51 Initial Consult Date 11/16/18 Requesting Provider: DYLON WALLS MD 24 HR Interval Summary Free Text/Dictation Last bm 11/26. Tolerating tube feed boluses, does not eat much PO. Exam/Review of Systems Vital Signs Vitals Vital Signs Date Temp Pulse Resp B/P (MAP) Pulse Ox O2 O2 Flow FiO2 Time Delivery Rate 11/28/18 97.6 87 18 171/73 92 Room Air 07:48 (105) 11/27/18 21 00:43 Intake and Output 11/27/18 11/27/18 11/28/18 1515:00 23:00 07:00 IntakeIntake Total 50 ml 520 ml 50 ml BalanceBalance 50 ml 520 ml 50 ml Exam Constitutional: alert Psych: no complaints Head: normocephalic Eyes: PERRL Gastrointestinal: soft, non-tender 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: confused Medications Medications Current Medications IV Flush (NS 3 ml) 3 ml PER PROTOCOL IV ; Start 11/16/18 at 09:00 Ondansetron HCl (Zofran Inj) 4 mg Q6H PRN IV NAUSEA AND/OR VOMITING; Start 11/16/18 at 09:00 Acetaminophen (Tylenol Tab) 650 mg Q6H PRN PO PAIN LEVEL 1-3 OR FEVER Last administered on 11/24/18at 20:19; Admin Dose 650 MG; Start 11/16/18 at 09:00 Docusate Sodium (Colace) 100 mg Q12H PRN PO CONSTIPATION; Start 11/16/18 at 09:00 Magnesium Hydroxide (Milk Of Mag) 30 ml DAILY PRN PO CONSTIPATION; Start 11/16/18 at 09:00 Folic Acid (Folic Acid) 1 mg DAILY GTB Last administered on 11/28/18at 09:22; Admin Dose 1 MG; Start 11/16/18 at 09:00 Albuterol/ Ipratropium (Duoneb) 3 ml Q6 PRN HHN sob; Start 11/16/18 at 09:00 Linagliptin (Tradjenta) 5 mg DAILY GTB Last administered on 11/28/18 09:23; Admin Dose 5 MG; Start 11/16/18 at 09:00 Lorazepam (Ativan) 1 mg HS PRN GTB ANXIETY Last administered on 11/24/18 20:19; Admin Dose 1 MG; Start 11/16/18 at 09:00 Quetiapine Fumarate (Seroquel) 25 mg BID GTB Last administered on 11/28/18 09:23; Admin Dose 25 MG; Start 11/16/18 at 09:00 Senna (Senokot) 1 tab BID PO Last administered on 11/28/18 09:23; Admin Dose 1 TAB; Start 11/16/18 at 09:00 Valproate Sodium (Depakene Liquid Cup) 250 mg Q8 PO Last administered on 11/28/18 06:03; Admin Dose 250 MG; Start 11/16/18 at 14:00 Sodium Chloride (NS) -To prime the dialy... DIRECTED FOR HD PRN IV SBP<90; Start 11/16/18 at 15:00 Hydralazine HCl (Apresoline) 10 mg Q4H PRN IV ELEVATED BLOOD PRESSURE Last administered on 11/17/18 14:57; Admin Dose 10 MG; Start 11/17/18 at 10:30 Acetaminophen/ Hydrocodone Bitart ([place] (5/325)) 1 tab Q3H PRN PO MODERATE PAIN LEVEL 4-6 Last administered on 11/27/18 08:12; Admin Dose 1 TAB; Start 11/17/18 at 14:30 Hydralazine HCl (Apresoline) 25 mg Q8 PO Last administered on 11/28/18 06:10; Admin Dose 25 MG; Start 11/18/18 at 06:00 Metoprolol Tartrate (Lopressor) 50 mg BID GTB Last administered on 11/28/18 09:22; Admin Dose 50 MG; Start 11/18/18 at 09:00 Albumin Human 50 ml @ 100 mls/hr WITH DIALYSIS PRN IV SBP<90 Last administered on 11/22/18 11:25; Admin Dose 100 MLS/HR; Start 11/18/18 at 14:30 Morphine Sulfate (morphine) 6 mg Q4H PRN PO SEVERE PAIN LEVEL 7-10 Last administered on 11/27/18 00:35; Admin Dose 6 MG; Start 11/18/18 at 23:00 Docusate Sodium (Colace Liquid Cup) 100 mg DAILY GTB Last administered on 11/28/18 09:22; Admin Dose 100 MG; Start 11/19/18 at 09:30 Guaifenesin/ Dextromethorphan (Robitussin Dm Liquid Cup) 5 ml Q4H PRN PO cough Last administered on 11/23/18 21:50; Admin Dose 5 ML; Start 11/20/18 at 14:00 Amlodipine Besylate (Norvasc) 2.5 mg BID GTB Last administered on 11/28/18 09:23; Admin Dose 2.5 MG; Start 11/22/18 at 21:00 Vancomycin HCl (Vanco Iv Per Pharmacy) VANCOMYCIN PER PHARMACY PER PROTOCOL XX ; Start 11/23/18 at 12:00 Meropenem/Sodium Chloride 50 ml @ 100 mls/hr Q24H IVPB Last administered on 11/27/18 12:39; Admin Dose 100 MLS/HR; Start 11/24/18 at 13:00 Multivit/Ca Carb/ B Cmplx/FA/Prenat (Kianna-Roque) 1 tab DAILY GTB Last adminis tered on 11/28/18 09:23; Admin Dose 1 TAB; Start 11/24/18 at 09:00 Lansoprazole (Prevacid) 30 mg DAILY GTB Last administered on 11/28/18 09:23; Admin Dose 30 MG; Start 11/26/18 at 09:00 Ferrous Sulfate (Ferrous Sulfate (Ec)) 325 mg BID PO Last administered on 11/28/18 09:23; Admin Dose 325 MG; Start 11/25/18 at 21:00 Acetaminophen (Tylenol Supp) 650 mg Q4H PRN [place] MILD PAIN(1-3) OR TEMP>38C Last administered on 11/26/18 08:32; Admin Dose 650 MG; Start 11/26/18 at 08:30 Vancomycin/Sodium Chloride 250 ml @ 125 mls/hr Q72H IVPB Last administered on 11/27/18 15:33; Admin Dose 125 MLS/HR; Start 11/27/18 at 16:00 Caspofungin 50 mg/ Sodium Chloride 250 ml @ 250 mls/hr Q24H IVPB ; Start at 11:00 TONY VENCES Nov 28, 2018 12:01
[2018-11-28] MEDS: CASPOFUNGIN 50 MG in SOD CHLORIDE 0.9% 250 ML IVPB SCH (12:05)
--- NOTE | 2018-11-28 12:05 | DS ---
DATE OF ADMISSION: 11/16/2018 DATE OF DISCHARGE: 11/28/2018 HOSPITAL COURSE: The patient is an unfortunate 83-year-old [place] female, very frail with history of end-stage renal disease on dialysis 3 times a week with Dr. Juliocesar Stringer. She has history of ulloa tolic dysfunction heart failure, Diabetes mellitus type 2, controlled, hypertension, vascular dementi a, anxiety disorder with multiple hospitalizations, once for hip fracture. She is always a risk of f all as she has a close monitoring. Recently, she was discharged from [facility] to line sepsis and VRE bacteremia Unfortunately, at the facility, she was noted to have severe hand swelling and hematoma. We decided to send her back to the hospital. Upon presentation, X-ray of e right hand shows extensive soft tissue swelling over the dorsum of the right hand and wrist, but no soft tissue gas or foreign body. No evidence of fracture. Patient was started on antibiotic empiri nabil for possible infection. During her hospitalization, she was seen by multiple physicians includ ing Dr. Juan Miranda, the orthopedic doctor, Dr. Proctor, the infectious disease specialist, Dr. Stevens, the automated cutting machine operator, Dr. Baird, the GI specialist, as there was also a report of some black stools. e patient underwent an EGD which showed chronic gastritis. G-tube balloon identified normal internal stoma and normal duodenum and ampulla. Dr. Juan Miranda as well took the patient to the operating room and performed incision and drainage. The arm was elevated and the wound improved significantly. Duri ng her stay, she also required a blood transfusion and was noted to have worsening leukocytosis and f ever. Chest x-ray did reveal evidence of pneumonia on 06/22/2018. Chest x-ray shows left lung inter stitial opacity may reflect edema or pneumonia. This patient's condition, she developed pneumonia un fortunately. She was started broad-spectrum antibiotic with Merrem and vancomycin with good results and followup chest x-ray which was done on the already shows interval decreased left lung inters titial airspace opacities. Upon discussion with infectious disease specialist. It is okay to discha rge on amikacin and vancomycin to be given during dialysis. Patient clinically doing better. She is currently being monitored. Dietary saw the patient and increased the feeding to four times a day sindi luses feeding. The patient has been stable, but overall her prognosis is guarded due to her very adv anced dementia and multiple other comorbidities which include end-stage renal disease, malnutrition, dysphagia, anemia. DISCHARGE MEDICATIONS: [facility] with [facility] carlos parra medications: 1. Tylenol 650 q. 6 p.r.n. 2. DuoNeb every 6 hours as needed. 3. Norvasc 2.5 b.i.d. 4. Colace 100 q.12h. 5. MiraLax 17 grams daily. 6. Ferrous sulfate 325 b.i.d. 7. Folic acid 1 mg daily. 8. Robitussin p.r.n. 9. Hydralazine p.r.n. 10 mg every 4 hours p.r.n. for systolic elevated blood pressure and 25 three t imes a day routine. 10. Borup was discontinued. 11. Prevacid 30 mg daily via G-tube. 12. Tradjenta 5 mg daily. 13. Ativan 1 mg every evening at bedtime p.r.n., only at night. 14. Magnesium oxide as directed. 15. Metoprolol titrate 50 b.i.d. 16. Kianna-Roque 1 tab daily. 17. Zofran 4 mg p.o. q.6h. p.r.n. for nausea and vomiting. 18. Seroquel 25 twice a day. 19. Senna 1 tab b.i.d. 20. Depakote 250 q.8h. 21. Vancomycin during HD, after HD at dialysis center x5 days. 22. Amikacin IV per pharmacy after dialysis x5 days. 23. Renvela she takes three times a day with meals. 24. Linzess 145 mg daily. FINAL DIAGNOSES: 1. Right hand hematoma status post evacuation. 2. Aspiration pneumonia. 3. Advanced vascular dementia. 4. End-stage renal disease. 5. Anemia. 6. Rule out gastrointestinal bleed. 7. Gastritis. 8. Dementia with behavioral disturbances. 9. Intermittent psychosis. 10. Hypertension. 11. Dysphagia. 12. G-tube feeding. 13. Diabetes mellitus, controlled off medications. 14. Recent history of bacteremia and line sepsis. The patient will be discharged to [facility]. The patient to continue wit h her dialysis sessions. Dictated By: DYLON HULL/NTS Conf#: [id number] DID#: [id number] CC: CHRISS BAIRD MD;*EndCC*
--- NOTE | 2018-11-28 12:21 | DS ---
DATE OF ADMISSION: 11/16/2018 DATE OF DISCHARGE: ADDENDUM: Unfortunately, the patient's culture just came back as I was informed by nursing staff carie t the blood culture shows yeast, so we will keep the patient in house for another day. We will start the patient Cancidas and we will follow up also with ID recommendations and we will order another se t of blood cultures tomorrow morning. Unfortunately, the patient now has fungemia. Unfortunately, t he patient is immunocompromised. Continue with the above plan. The patient is to be kept at least a nother day until further discharge planning is discussed with ID and make sure patient can get [facility]al treatment [facility]. We will follow. Dictated By: DYLON HULL/NTS Conf#: [id number] DID#: [id number] CC: CHRISS WELCH MD;*EndCC*
[2018-11-28] MEDS: MEROPENEM 500MG/50 ML (PMX) 50 ML IVPB SCH (14:37)
[2018-11-28 14:43] VITALS: BP 133/65; PULSE 89; RESP 16
--- NOTE | 2018-11-28 18:20 | CONS ---
Date/Time of Note Date/Time of Note DATE: 11/28/18 TIME: 18:11 Assessment/Plan Assessment/Plan Hospital Course ID PROGRESS NOTE CURRENT ABX: DAY #=> Merrem # + Cancidas 11/28/1842611/28/18426 24H INTERVAL SUMMARY * Chart reviewed == patient is new to nm w/ABX plan of care per ID colleague Jordon Sidhu NP and Dr. Perez discussed on the phone yesterday. * Now DC plan on hold due to (+)Fungemia on BCx MICRO * 11/24/18 BCX (+) BLOOD CULTURE Preliminary BCULT GRAM BOTTLE 1 Yeast . seen on gram stain of the broth Organism 1 YEAST * PHYSICAL EXAMINATION: GENERAL: Afebrile, VSS, HEENT: AT, NC, anicteric NECK: Supple, trach CHEST: Equal chest rise bilaterally, without dyspnea on observation HEART: Pulse RRR ABDOMEN: Soft / NT EXTREMITIES: Warm, dry SKIN: No rash, no diaphoresis ID ASSESSMENT 83 yo F w/ DEMENTIA admit with: 1. FUNGEMIA 1/2 bottles -- ?Source * 11/24/18 BCX (+) BLOOD CULTURE Preliminary BCULT GRAM BOTTLE 1 Yeast . seen on gram stain of the broth Organism 1 YEAST 2. Status post VRE bacteremia, status post new Pcath 3. End-stage renal disease, hemodialysis dependent 4. Health care Acquired PNA -- ?ASP PNA? 5. Right hand hematoma, status post I&D 11/17/18 6. Diabetes 7. Anemia 8. 5. Failure to thrive (-)MRSA Nares ABX ALLERGIES: KNDA INVASIVES: PIV CURRENT ABX: DAY #=> Merrem # + Cancidas ID RECOMMENDATIONS/PLAN: Continue current ABX -- REPEAT BCX from [facility] . . Result Diagram: 11/28/1842611/28/18426 Results 24hrs Laboratory Tests Test 11/28/18 04:27 White Blood Count 7.4 Red Blood Count 3.13 L Hemoglobin 8.6 L Hematocrit 27.5 L Mean Corpuscular Volume 87.9 Mean Corpuscular Hemoglobin 27.5 L Mean Corpuscular Hemoglobin Concent 31.3 L Red Cell Distribution Width 16.5 H Platelet Count 215 # Mean Platelet Volume 12.0 H Immature Granulocytes % 1.600 H Neutrophils % 59.4 Lymphocytes % 13.0 L Monocytes % 17.3 H Eosinophils % 8.0 H Basophils % 0.7 Nucleated Red Blood Cells % 0.4 H Immature Granulocytes # 0.120 H Neutrophils # 4.4 Lymphocytes # 1.0 Monocytes # 1.3 H Eosinophils # 0.6 H Basophils # 0.1 Nucleated Red Blood Cells # 0.0 Sodium Level 135 Potassium Level 4.3 Chloride Level 100 Carbon Dioxide Level 28 Anion Gap 7 Blood Urea Nitrogen 43 #H Creatinine 2.19 H Est Glomerular Filtrat Rate mL/min Glucose Level 133 Calcium Level 8.6 Phosphorus Level 3.0 Magnesium Level 2.4 Consultation Date/Type/Reason Admit Date/Time Nov 16, 2018 at 05:51 Initial Consult Date 11/16/18 Requesting Provider: DYLON PEREZ MD Exam/Review of Systems Vital Signs Vitals Vital Signs Date Temp Pulse Resp B/P (MAP) Pulse Ox O2 O2 Flow FiO2 Time Delivery Rate 11/28/18 97.9 89 16 133/65 93 Room Air 14:43 (87) 11/27/18 21 00:43 Intake and Output 11/27/18 11/27/18 11/28/18 1414:59 22:59 06:59 IntakeIntake Total 50 ml 520 ml 50 ml BalanceBalance 50 ml 520 ml 50 ml Medications Medications Current Medications IV Flush (NS 3 ml) 3 ml PER PROTOCOL IV ; Start 11/16/18 at 09:00 Ondansetron HCl (Zofran Inj) 4 mg Q6H PRN IV NAUSEA AND/OR VOMITING; Start 11/16/18 at 09:00 Acetaminophen (Tylenol Tab) 650 mg Q6H PRN PO PAIN LEVEL 1-3 OR FEVER Last administered on 11/24/18at 20:19; Admin Dose 650 MG; Start 11/16/18 at 09:00 Docusate Sodium (Colace) 100 mg Q12H PRN PO CONSTIPATION; Start 11/16/18 at 09:00 Magnesium Hydroxide (Milk Of Mag) 30 ml DAILY PRN PO CONSTIPATION; Start 11/16/18 at 09:00 Folic Acid (Folic Acid) 1 mg DAILY GTB Last administered on 11/28/18at 09:22; Admin Dose 1 MG; Start 11/16/18 at 09:00 Albuterol/ Ipratropium (Duoneb) 3 ml Q6 PRN HHN sob; Start 11/16/18 at 09:00 Linagliptin (Tradjenta) 5 mg DAILY GTB Last administered on 11/28/18 09:23; Admin Dose 5 MG; Start 11/16/18 at 09:00 Lorazepam (Ativan) 1 mg HS PRN GTB ANXIETY Last administered on 11/24/18 20:19; Admin Dose 1 MG; Start 11/16/18 at 09:00 Quetiapine Fumarate (Seroquel) 25 mg BID GTB Last administered on 11/28/18 09:23; Admin Dose 25 MG; Start 11/16/18 at 09:00 Senna (Senokot) 1 tab BID PO Last administered on 11/28/18 09:23; Admin Dose 1 TAB; Start 11/16/18 at 09:00 Valproate Sodium (Depakene Liquid Cup) 250 mg Q8 PO Last administered on 11/28/18 14:37; Admin Dose 250 MG; Start 11/16/18 at 14:00 Sodium Chloride (NS) -To prime the dialy... DIRECTED FOR HD PRN IV SBP<90; Start 11/16/18 at 15:00 Hydralazine HCl (Apresoline) 10 mg Q4H PRN IV ELEVATED BLOOD PRESSURE Last ad ministered on 11/17/18 14:57; Admin Dose 10 MG; Start 11/17/18 at 10:30 Acetaminophen/ Hydrocodone Bitart ([place] (5/325)) 1 tab Q3H PRN PO MODERATE PAIN LEVEL 4-6 Last administered on 11/27/18 08:12; Admin Dose 1 TAB; Start 11/17/18 at 14:30 Hydralazine HCl (Apresoline) 25 mg Q8 PO Last administered on 11/28/18 14:42; Admin Dose 25 MG; Start 11/18/18 at 06:00 Metoprolol Tartrate (Lopressor) 50 mg BID GTB Last administered on 11/28/18 09:22; Admin Dose 50 MG; Start 11/18/18 at 09:00 Albumin Human 50 ml @ 100 mls/hr WITH DIALYSIS PRN IV SBP<90 Last administered on 11/22/18 11:25; Admin Dose 100 MLS/HR; Start 11/18/18 at 14:30 Morphine Sulfate (morphine) 6 mg Q4H PRN PO SEVERE PAIN LEVEL 7-10 Last administered on 11/27/18 00:35; Admin Dose 6 MG; Start 11/18/18 at 23:00 Docusate Sodium (Colace Liquid Cup) 100 mg DAILY GTB Last administered on 11/28/18 09:22; Admin Dose 100 MG; Start 11/19/18 at 09:30 Guaifenesin/ Dextromethorphan (Robitussin Dm Liquid Cup) 5 ml Q4H PRN PO cough Last administered on 11/23/18 21:50; Admin Dose 5 ML; Start 11/20/18 at 14:00 Amlodipine Besylate (Norvasc) 2.5 mg BID GTB Last administered on 11/28/18 09:23; Admin Dose 2.5 MG; Start 11/22/18 at 21:00 Vancomycin HCl (Vanco Iv Per Pharmacy) VANCOMYCIN PER PHARMACY PER PROTOCOL XX ; Start 11/23/18 at 12:00 Meropenem/Sodium Chloride 50 ml @ 100 mls/hr Q24H IVPB Last administered on 11/28/18 14:37; Admin Dose 100 MLS/HR; Start 11/24/18 at 13:00 Multivit/Ca Carb/ B Cmplx/FA/Prenat (Kianna-Roque) 1 tab DAILY GTB Last administered on 11/28/18 09:23; Admin Dose 1 TAB; Start 11/24/18 at 09:00 Lansoprazole (Prevacid) 30 mg DAILY GTB Last administered on 11/28/18 09:23; Admin Dose 30 MG; Start 11/26/18 at 09:00 Ferrous Sulfate (Ferrous Sulfate (Ec)) 325 mg BID PO Last administered on 09:23; Admin Dose 325 MG; Start 11/25/18 at 21:00 Acetaminophen (Tylenol Supp) 650 mg Q4H PRN [place] MILD PAIN(1-3) OR TEMP>38C Last administered on 11/26/18 08:32; Admin Dose 650 MG; Start 11/26/18 at 08:30 Vancomycin/Sodium Chloride 250 ml @ 125 mls/hr Q72H IVPB Last administered on 11/27/18 15:33; Admin Dose 125 MLS/HR; Start 11/27/18 at 16:00 Caspofungin 50 mg/ Sodium Chloride 250 ml @ 250 mls/hr Q24H IVPB Last administered on 11/28/18at 12:05; Admin Dose 250 MLS/HR; Start 11/28/18 at 11:00 SEVERO GARCIA NP Nov 28, 2018 18:20
[2018-11-28 20:00] VITALS: BP 164/79; PULSE 81; RESP 18
[2018-11-28] MEDS: ACETAMINOPHEN 325 MG TAB PO PRN (20:14)
[2018-11-28] MEDS: LORAZEPAM 1 MG TAB GTB PRN (20:16)
[2018-11-29] VITALS (17 sets, daily range): BP systolic 96–165; BP diastolic 41–78; PULSE 77–112; RESP 17–18
[2018-11-29] MEDS: VALPROIC ACID LIQUID CUP 250 MG/5 ML CUP PO SCH ×3 (06:10→20:41)
--- NOTE | 2018-11-29 07:56 | CONS ---
Date/Time of Note Date/Time of Note DATE: 11/29/18 TIME: 07:53 Assessment/Plan Assessment/Plan Hospital Course 83 yo female in ESRD on HD presents for melena and anemia and also found to have edematous Rt hand/wrist 1. UGIB manifested through melena and anemia -no melena noted or GI bleeding noted by nursing staff 2. Anemia, acute on chronic, acute likely due to blood loss in rt hand -Hgb 6.8->10.6->9.2->8.3 -No evidence of active GI bleeding, consider etiology of blood loss anemia to be from hematoma in hand -s/p 2 units with HD on 11/17 -Fe wnl, TIBC low, Ferritin, folate, b12 high, FOB neg 3. ESRD on HD -receiving HD currently 4. Hematoma of Rt hand and wrist -I and D drainage by Dr. Dean 11/17 5. Dysphagia -on tube feeds and pureed nectar for oral gratification -Tube feeds boluses QID 6. DM2 7. HTN 8. H/O diastolic dysfunction heart failure 9. S/P EGD 11/18 10. Moderate gastritis with no bleeding noted. 11. Hospital acquired pneumonia- concern for aspiration 12. Yeast in blood cx Gastric biopsy results: Stomach, biopsy: -- Antral and oxyntic mucosa showing minimal plasma cell infiltration and small focus of intestinal metaplasia. -- No Helicobacter pylori is identified in Giemsa stain (positive control concurrently reviewed). -- No evidence of dysplasia or malignancy. Plan: Cont abx Continue present care Monitor HH closely and for active GI bleeding PPI BID Pt examined and plan of care discussed with Dr. Baird Result Diagram: 11/29/18 0556 11/29/18 0556 Results 24hrs Laboratory Tests Test 11/29/18 05:56 White Blood Count 7.5 Red Blood Count 3.28 L Hemoglobin 9.0 L Hematocrit 28.7 L Mean Corpuscular Volume 87.5 Mean Corpuscular Hemoglobin 27.4 L Mean Corpuscular Hemoglobin Concent 31.4 L Red Cell Distribution Width 16.5 H Platelet Count 265 # Mean Platelet Volume 11.3 H Immature Granulocytes % 2.100 H Neutrophils % 58.4 Lymphocytes % 15.7 Monocytes % 15.8 H Eosinophils % 7.5 H Basophils % 0.5 Nucleated Red Blood Cells % 0.4 H Immature Granulocytes # 0.160 H Neutrophils # 4.4 Lymphocytes # 1.2 Monocytes # 1.2 H Eosinophils # 0.6 H Basophils # 0.0 Nucleated Red Blood Cells # 0.0 Sodium Level 135 Potassium Level 4.3 Chloride Level 97 Carbon Dioxide Level 30 Anion Gap 8 Blood Urea Nitrogen 63 H Creatinine 2.60 H Est Glomerular Filtrat Rate mL/min Glucose Level 124 Calcium Level 8.7 Phosphorus Level 3.6 Magnesium Level 2.7 H Consultation Date/Type/Reason Admit Date/Time Nov 16, 2018 at 05:51 Initial Consult Date 11/16/18 Requesting Provider: DYLON WALLS MD 24 HR Interval Summary Free Text/Dictation Small bm last night, green in color. tolerating tube feeds boluses qid. No evidence of GI bleed. Still confused. Takes small amount of nectar thickened liquids. She denies abd pain. Exam/Review of Systems Vital Signs Vitals Vital Signs Date Temp Pulse Resp B/P (MAP) Pulse Ox O2 O2 Flow FiO2 Time Delivery Rate 11/29/18 98.1 80 18 115/59 96 02:02 (77) 11/28/18 Room Air 14:43 11/27/18 21 00:43 Intake and Output 11/28/18 11/28/18 11/29/18 1414:59 22:59 06:59 IntakeIntake Total 250 ml 911 ml BalanceBalance 250 ml 911 ml Exam Constitutional: alert Respiratory: other (non labored, symmetrical chest rise) Cardiovascular: regular rate and rhythm Gastrointestinal: soft, non-tender, other (g tube site clean and dry) 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: confused Medications Medications Current Medications IV Flush (NS 3 ml) 3 ml PER PROTOCOL IV ; Start 11/16/18 at 09:00 Ondansetron HCl (Zofran Inj) 4 mg Q6H PRN IV NAUSEA AND/OR VOMITING; Start 11/16/18 at 09:00 Acetaminophen (Tylenol Tab) 650 mg Q6H PRN PO PAIN LEVEL 1-3 OR FEVER Last administered on 11/28/18at 20:14; Admin Dose 650 MG; Start 11/16/18 at 09:00 Docusate Sodium (Colace) 100 mg Q12H PRN PO CONSTIPATION; Start 11/16/18 at 09:00 Magnesium Hydroxide (Milk Of Mag) 30 ml DAILY PRN PO CONSTIPATION; Start 11/16/18 at 09:00 Folic Acid (Folic Acid) 1 mg DAILY GTB Last administered on 11/28/18 09:22; Admin Dose 1 MG; Start 11/16/18 at 09:00 Albuterol/ Ipratropium (Duoneb) 3 ml Q6 PRN HHN sob; Start 11/16/18 at 09:00 Linagliptin (Tradjenta) 5 mg DAILY GTB Last administered on 11/28/18 09:23; Ad min Dose 5 MG; Start 11/16/18 at 09:00 Lorazepam (Ativan) 1 mg HS PRN GTB ANXIETY Last administered on 11/28/18 20:16; Admin Dose 1 MG; Start 11/16/18 at 09:00 Quetiapine Fumarate (Seroquel) 25 mg BID GTB Last administered on 11/28/18 20:14; Admin Dose 25 MG; Start 11/16/18 at 09:00 Senna (Senokot) 1 tab BID PO Last administered on 11/28/18 20:14; Admin Dose 1 TAB; Start 11/16/18 at 09:00 Valproate Sodium (Depakene Liquid Cup) 250 mg Q8 PO Last administered on 11/29/18 06:10; Admin Dose 250 MG; Start 11/16/18 at 14:00 Sodium Chloride (NS) -To prime the dialy... DIRECTED FOR HD PRN IV SBP<90; Start 11/16/18 at 15:00 Hydralazine HCl (Apresoline) 10 mg Q4H PRN IV ELEVATED BLOOD PRESSURE Last administered on 11/17/18at 14:57; Admin Dose 10 MG; Start 11/17/18 at 10:30 Acetaminophen/ Hydrocodone Bitart ([place] (5/325)) 1 tab Q3H PRN PO MODERATE PAIN LEVEL 4-6 Last administered on 11/27/18 08:12; Admin Dose 1 TAB; Start 11/17/18 at 14:30 Hydralazine HCl (Apresoline) 25 mg Q8 PO Last administered on 11/29/18 06:11; Admin Dose 25 MG; Start 11/18/18 at 06:00 Metoprolol Tartrate (Lopressor) 50 mg BID GTB Last administered on 11/28/18 20:15; Admin Dose 50 MG; Start 11/18/18 at 09:00 Albumin Human 50 ml @ 100 mls/hr WITH DIALYSIS PRN IV SBP<90 Last administered on 11/22/18 11:25; Admin Dose 100 MLS/HR; Start 11/18/18 at 14:30 Morphine Sulfate (morphine) 6 mg Q4H PRN PO SEVERE PAIN LEVEL 7-10 Last administered on 11/27/18 00:35; Admin Dose 6 MG; Start 11/18/18 at 23:00 Docusate Sodium (Colace Liquid Cup) 100 mg DAILY GTB Last administered on 11/28/18 09:22; Admin Dose 100 MG; Start 11/19/18 at 09:30 Guaifenesin/ Dextromethorphan (Robitussin Dm Liquid Cup) 5 ml Q4H PRN PO cough Last administered on 11/23/18 21:50; Admin Dose 5 ML; Start 11/20/18 at 14:00 Amlodipine Besylate (Norvasc) 2.5 mg BID GTB Last administered on 11/28/18 20:15; Admin Dose 2.5 MG; Start 11/22/18 at 21:00 Vancomycin HCl (Vanco Iv Per Pharmacy) VANCOMYCIN PER PHARMACY PER PROTOCOL XX ; Start 11/23/18 at 12:00 Meropenem/Sodium Chloride 50 ml @ 100 mls/hr Q24H IVPB Last administered on 11/28/18 14:37; Admin Dose 100 MLS/HR; Start 11/24/18 at 13:00 Multivit/Ca Carb/ B Cmplx/FA/Prenat (Kianna-Roque) 1 tab DAILY GTB Last administered on 11/28/18 09:23; Admin Dose 1 TAB; Start 11/24/18 at 09:00 Lansoprazole (Prevacid) 30 mg DAILY GTB Last administered on 11/28/18 09:23; Admin Dose 30 MG; Start 11/26/18 at 09:00 Ferrous Sulfate (Ferrous Sulfate (Ec)) 325 mg BID PO Last administered on 11/28/18 20:14; Admin Dose 325 MG; Start 11/25/18 at 21:00 Acetaminophen (Tylenol Supp) 650 mg Q4H PRN [place] MILD PAIN(1-3) OR TEMP>38C Last administered on 1/18/19at 08:32; Admin Dose 650 MG; Start 11/26/18 at 08:30 Vancomycin/Sodium Chloride 250 ml @ 125 mls/hr Q72H IVPB Last administered on 11/27/18at 15:33; Admin Dose 125 MLS/HR; Start 11/27/18 at 16:00 Caspofungin 50 mg/ Sodium Chloride 250 ml @ 250 mls/hr Q24H IVPB Last administered on 11/28/18at 12:05; Admin Dose 250 MLS/HR; Start 11/28/18 at 11:00 TONY VENCES Nov 29, 2018 07:56
--- NOTE | 2018-11-29 08:11 | PN ---
DATE: 11/26/2018 SUBJECTIVE: The patient was seen. Hemoglobin also again went down to 7.2. Transfusion was ordered. In addition, the patient had a low-grade temperature of 100.2 this morning. We decided to continue to monitor another day of the above. The patient is alert, but overall confused, talking. The nurs ing staff cannot understand her. The patient is with 1:1 sitter due danger to self. PHYSICAL EXAMINATION: VITAL SIGNS: T-max 100.2, blood pressure is 106/69, pulse is 78, respirations 20, saturation 96% on room air. GENERAL: The patient is frail, pale. CARDIOVASCULAR: S1, S2. LUNGS: Decreased bilaterally, otherwise clear. Left IJ in place. ABDOMEN: Soft. G-tube in place. EXTREMITIES: No clubbing, cyanosis or edema. The patient's right hand is bandaged, status post I an d D. LABORATORY DATA: White count 8.2, hemoglobin 7.2, hematocrit 23, platelet count 196, neutrophils 62% , lymphocytes 14%, monocytes 16%. Chemistry: Sodium 135, potassium 4.1, chloride 98, bicarbonate 30 , BUN is 44, creatinine 2.39 and glucose of 120. Last glucose level is 140. The patient's blood cul tures on 11/24/2018 were negative. MEDICATIONS: All medications were reviewed. DIAGNOSTIC DATA: Chest x-ray which was done actually today shows interval decreased left lung inters titial airspace opacity compatible with improving pneumonia. ASSESSMENT AND PLAN: This is an 83-year-old [place] female with history of end-stage renal disease, dementia, psychiatric disorder, chronic obstructive pulmonary disease, who presented with right hand severe hematoma, status post incision and drainage, also developed unfortunately pneumonia likely du e to aspiration. 1. Respiratory. Continue antibiotics and chest x-ray has improved. May continue discharge planning with IV vancomycin and gentamicin that can be given during dialysis. In the meantime, continue abov e Merrem and vancomycin. 2. Cardiovascular. Vitals remain stable. Blood pressure is on the low normal side. 3. End-stage renal disease, dialysis 3 times a week. 4. Anxiety, multifactorial, improved. 5. Dysphagia. Continue G-tube feeding, not eating much orally. This patient also is high risk of a spiration. 6. Diabetes mellitus. Glucose levels are controlled in the low 100s. 7. Anemia. Transfuse 1 unit of PRBC. May benefit from Epogen. Currently, no evidence of bleeding. Check tomorrow's labs. DISPOSITION: Likely tomorrow if afebrile and H and H remain stable. We will follow. Dictated By: DYLON HULL/NTS Conf#: [id number] DID#: [id number] CC: CHRISS WELCH MD;*EndCC*
[2018-11-29] MEDS: METOPROLOL 50 MG TAB GTB SCH ×2 (09:00→20:40)
[2018-11-29] MEDS: AMLODIPINE 2.5 MG TAB GTB SCH ×2 (09:00→20:40)
[2018-11-29] MEDS: DOCUSATE SODIUM 10 MG/ML (10ML CUP) GTB SCH (09:20)
[2018-11-29] MEDS: MULTIVIT/CA CARB/B CMPLX/FA TAB GTB SCH (09:20)
[2018-11-29] MEDS: SENNA TAB PO SCH ×2 (09:20→20:39)
[2018-11-29] MEDS: LANSOPRAZOLE 30 MG CAP GTB SCH (09:21)
[2018-11-29] MEDS: FERROUS SULFATE (EC) 325 MG TAB PO SCH ×2 (09:21→20:39)
[2018-11-29] MEDS: QUETIAPINE 25 MG TAB GTB SCH ×2 (09:21→20:40)
[2018-11-29] MEDS: FOLIC ACID 1 MG TAB GTB SCH (09:21)
[2018-11-29] MEDS: LINAGLIPTIN 5 MG TABLET GTB SCH (09:22)
[2018-11-29] MEDS: CASPOFUNGIN 50 MG in SOD CHLORIDE 0.9% 250 ML IVPB SCH (11:22)
--- NOTE | 2018-11-29 14:22 | CONS ---
Date/Time of Note Date/Time of Note DATE: 11/29/18 TIME: 14:20 Assessment/Plan Assessment/Plan Hospital Course 83 y/o with 1. Right hand swelling, likely secondary to hematoma, questionable fall. with compression s/p I and D on 11/17/18 2. Gastrointestinal bleed with melena. 3. Hypertension. 4. Diabetes. 5. End-stage renal disease on hemodialysis. 6. History of falls. 7. Vascular dementia.with AMS 8. History of sepsis with VRE. 9. Dysphagia, status post G-tube. 10. History of hip fracture. 11. Thrombocytopenia. 12. Atherosclerotic heart disease. 13 ongoing fevers questionable pneumonia, now with yeast bacterimia Plan - HD tday with extra UF - CHEST X ray - cw vancomycin/meropenem/caspofungin - ? line replacement - Monitor fevers - Hold BP meds before hd - renally dose all meds Result Diagram: 11/29/18 0556 11/29/18 0556 Results 24hrs Laboratory Tests Test 11/29/18 05:56 11/29/18 09:26 White Blood Count 7.5 Red Blood Count 3.28 L Hemoglobin 9.0 L Hematocrit 28.7 L Mean Corpuscular Volume 87.5 Mean Corpuscular Hemoglobin 27.4 L Mean Corpuscular Hemoglobin Concent 31.4 L Red Cell Distribution Width 16.5 H Platelet Count 265 # Mean Platelet Volume 11.3 H Immature Granulocytes % 2.100 H Neutrophils % 58.4 Lymphocytes % 15.7 Monocytes % 15.8 H Eosinophils % 7.5 H Basophils % 0.5 Nucleated Red Blood Cells % 0.4 H Immature Granulocytes # 0.160 H Neutrophils # 4.4 Lymphocytes # 1.2 Monocytes # 1.2 H Eosinophils # 0.6 H Basophils # 0.0 Nucleated Red Blood Cells # 0.0 Sodium Level 135 Potassium Level 4.3 Chloride Level 97 Carbon Dioxide Level 30 Anion Gap 8 Blood Urea Nitrogen 63 H Creatinine 2.60 H Est Glomerular Filtrat Rate mL/min Glucose Level 124 Calcium Level 8.7 Phosphorus Level 3.6 Magnesium Level 2.7 H Bedside Glucose 123 Consultation Date/Type/Reason Admit Date/Time Nov 16, 2018 at 05:51 Initial Consult Date 11/16/18 Requesting Provider: DYLON WALLS MD 24 HR Interval Summary Free Text/Dictation pt had episode of desaturation last night Exam/Review of Systems Vital Signs Vitals Vital Signs Date Temp Pulse Resp B/P (MAP) Pulse Ox O2 O2 Flow FiO2 Time Delivery Rate 11/29/18 79 13:15 11/29/18 97.7 18 157/78 96 08:11 (104) 11/28/18 Room Air 14:43 11/27/18 21 00:43 Intake and Output 11/28/18 11/28/18 11/29/18 1414:59 22:59 06:59 IntakeIntake Total 250 ml 911 ml BalanceBalance 250 ml 911 ml Exam left chest Permcath Neck: supple Respiratory: diminished breath sounds Cardiovascular: regular rate and rhythm Musculoskeletal: muscle weakness 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: confused Skin: ecchymosis, laceration, other Medications Medications Medications Current Medications IV Flush (NS 3 ml) 3 ml PER PROTOCOL IV ; Start 11/16/18 at 09:00 Ondansetron HCl (Zofran Inj) 4 mg Q6H PRN IV NAUSEA AND/OR VOMITING; Start 11/16 at 09:00 Acetaminophen (Tylenol Tab) 650 mg Q6H PRN PO PAIN LEVEL 1-3 OR FEVER Last administered on 11/28/18at 20:14; Admin Dose 650 MG; Start 11/16/18 at 09:00 Docusate Sodium (Colace) 100 mg Q12H PRN PO CONSTIPATION; Start 11/16/18 at 09:00 Magnesium Hydroxide (Milk Of Mag) 30 ml DAILY PRN PO CONSTIPATION; Start 11/16/18 at 09:00 Folic Acid (Folic Acid) 1 mg DAILY GTB Last administered on 11/29/18at 09:21; Admin Dose 1 MG; Start 11/16/18 at 09:00 Albuterol/ Ipratropium (Duoneb) 3 ml Q6 PRN HHN sob; Start 11/16/18 at 09:00 Linagliptin (Tradjenta) 5 mg DAILY GTB Last administered on 11/29/18at 09:22; Admin Dose 5 MG; Start 11/16/18 at 09:00 Lorazepam (Ativan) 1 mg HS PRN GTB ANXIETY Last administered on 11/28/18at 20:16; Admin Dose 1 MG; Start 11/16/18 at 09:00 Quetiapine Fumarate (Seroquel) 25 mg BID GTB Last administered on 11/29/18 09:21; Admin Dose 25 MG; Start 11/16/18 at 09:00 Senna (Senokot) 1 tab BID PO Last administered on 11/29/18 09:20; Admin Dose 1 TAB; Start 11/16/18 at 09:00 Valproate Sodium (Depakene Liquid Cup) 250 mg Q8 PO Last administered on 11/29/18 06:10; Admin Dose 250 MG; Start 11/16/18 at 14:00 Sodium Chloride (NS) -To prime the dialy... DIRECTED FOR HD PRN IV SBP<90; Start 11/16/18 at 15:00 Hydralazine HCl (Apresoline) 10 mg Q4H PRN IV ELEVATED BLOOD PRESSURE Last administered on 11/17/18 14:57; Admin Dose 10 MG; Start 11/17/18 at 10:30 Acetaminophen/ Hydrocodone Bitart ([place] (5/325)) 1 tab Q3H PRN PO MODERATE PAIN LEVEL 4-6 Last administered on 11/27/18 08:12; Admin Dose 1 TAB; Start 11/17/18 at 14:30 Hydralazine HCl (Apresoline) 25 mg Q8 PO Last administered on 11/29/18 06:11; Admin Dose 25 MG; Start 11/18/18 at 06:00 Metoprolol Tartrate (Lopressor) 50 mg BID GTB Last administered on 11/28/18 20:15; Admin Dose 50 MG; Start 11/18/18 at 09:00 Albumin Human 50 ml @ 100 mls/hr WITH DIALYSIS PRN IV SBP<90 Last administered on 11/22/18 11:25; Admin Dose 100 MLS/HR; Start 11/18/18 at 14:30 Morphine Sulfate (morphine) 6 mg Q4H PRN PO SEVERE PAIN LEVEL 7-10 Last administered on 11/27/18 00:35; Admin Dose 6 MG; Start 11/18/18 at 23:00 Docusate Sodium (Colace Liquid Cup) 100 mg DAILY GTB Last administered on 11/29/18 09:20; Admin Dose 100 MG; Start 11/19/18 at 09:30 Guaifenesin/ Dextromethorphan (Robitussin Dm Liquid Cup) 5 ml Q4H PRN PO cough Last administered on 11/23/18 21:50; Admin Dose 5 ML; Start 11/20/18 at 14:00 Amlodipine Besylate (Norvasc) 2.5 mg BID GTB Last administered on 11/28/18 20:15; Admin Dose 2.5 MG; Start 11/22/18 at 21:00 Vancomycin HCl (Vanco Iv Per Pharmacy) VANCOMYCIN PER PHARMACY PER PROTOCOL XX ; Start 11/23/18 at 12:00 Meropenem/Sodium Chloride 50 ml @ 100 mls/hr Q24H IVPB Last administered on 11/28/18 14:37; Admin Dose 100 MLS/HR; Start 11/24/18 at 13:00 Multivit/Ca Carb/ B Cmplx/FA/Prenat (Kianna-Roque) 1 tab DAILY GTB Last administered on 11/29/18 09:20; Admin Dose 1 TAB; Start 11/24/18 at 09:00 Lansoprazole (Prevacid) 30 mg DAILY GTB Last administered on 11/29/18 09:21; Admin Dose 30 MG; Start 11/26/18 at 09:00 Ferrous Sulfate (Ferrous Sulfate (Ec)) 325 mg BID PO Last administered on 11/29/18 09:21; Admin Dose 325 MG; Start 11/25/18 at 21:00 Acetaminophen (Tylenol Supp) 650 mg Q4H PRN [place] MILD PAIN(1-3) OR TEMP>38C Last administered on 11/26/18 08:32; Admin Dose 650 MG; Start 11/26/18 at 08:30 Vancomycin/Sodium Chloride 250 ml @ 125 mls/hr Q72H IVPB Last administered on 11/27/18 15:33; Admin Dose 125 MLS/HR; Start 11/27/18 at 16:00 Caspofungin 50 mg/ Sodium Chloride 250 ml @ 250 mls/hr Q24H IVPB Last administered on 11/29/18 11:22; Admin Dose 250 MLS/HR; Start 11/28/18 at 11:00 JOSE RAUL ANDREWS MD Nov 29, 2018 14:22
--- NOTE | 2018-11-29 15:21 | CONS ---
Date/Time of Note Date/Time of Note DATE: 11/29/18 TIME: 15:20 Assessment/Plan Assessment/Plan Hospital Course ID PROGRESS NOTE CURRENT ABX: DAY #=> Merrem # + Cancidas 24H INTERVAL SUMMARY * Patient is stable, no fevers -- DC plan on hold due to (+)Fungemia on BCx == recommendation is to repeat BCx from HD access which most likely will need to be changed again. MICRO * 11/24/18 BCX (+) BLOOD CULTURE Preliminary BCULT GRAM BOTTLE 1 Yeast . seen on gram stain of the broth Organism 1 YEAST * PHYSICAL EXAMINATION: GENERAL: Afebrile, VSS, HEENT: AT, NC, anicteric NECK: Supple, trach CHEST: Equal chest rise bilaterally, without dyspnea on observation HEART: Pulse RRR ABDOMEN: Soft / NT EXTREMITIES: Warm, dry SKIN: No rash, no diaphoresis ID ASSESSMENT 83 yo F w/ DEMENTIA admit with: 1. FUNGEMIA 1/2 bottles -- ?Source * 11/24/18 BCX (+) BLOOD CULTURE Preliminary BCULT GRAM BOTTLE 1 Yeast . seen on gram stain of the broth Organism 1 YEAST 2. Status post VRE bacteremia, status post new Pcath 3. End-stage renal disease, hemodialysis dependent 4. Health care Acquired PNA -- ?ASP PNA? 5. Right hand hematoma, status post I&D 11/17/18 6. Diabetes 7. Anemia 8. 5. Failure to thrive (-)MRSA Nares ABX ALLERGIES: KNDA INVASIVES: PIV CURRENT ABX: DAY #=> Merrem # + Cancidas ID RECOMMENDATIONS/PLAN: Continue current ABX -- REPEAT BCX from PermCath Patient is stable, no fevers -- DC plan on hold due to (+)Fungemia on BCx == recommendation is to repeat BCx from HD access which most likely will need to be changed again. . . Result Diagram: 11/29/18 0556 11/29/18 0556 Results 24hrs Laboratory Tests Test 11/29/18 05:56 11/29/18 09:26 White Blood Count 7.5 Red Blood Count 3.28 L Hemoglobin 9.0 L Hematocrit 28.7 L Mean Corpuscular Volume 87.5 Mean Corpuscular Hemoglobin 27.4 L Mean Corpuscular Hemoglobin Concent 31.4 L Red Cell Distribution Width 16.5 H Platelet Count 265 # Mean Platelet Volume 11.3 H Immature Granulocytes % 2.100 H Neutrophils % 58.4 Lymphocytes % 15.7 Monocytes % 15.8 H Eosinophils % 7.5 H Basophils % 0.5 Nucleated Red Blood Cells % 0.4 H Immature Granulocytes # 0.160 H Neutrophils # 4.4 Lymphocytes # 1.2 Monocytes # 1.2 H Eosinophils # 0.6 H Basophils # 0.0 Nucleated Red Blood Cells # 0.0 Sodium Level 135 Potassium Level 4.3 Chloride Level 97 Carbon Dioxide Level 30 Anion Gap 8 Blood Urea Nitrogen 63 H Creatinine 2.60 H Est Glomerular Filtrat Rate mL/min Glucose Level 124 Calcium Level 8.7 Phosphorus Level 3.6 Magnesium Level 2.7 H Bedside Glucose 123 Consultation Date/Type/Reason Admit Date/Time Nov 16, 2018 at 05:51 Initial Consult Date 11/16/18 Requesting Provider: DYLON WALLS MD Exam/Review of Systems Vital Signs Vitals Vital Signs Date Temp Pulse Resp B/P (MAP) Pulse Ox O2 O2 Flow FiO2 Time Delivery Rate 11/29/18 79 13:15 11/29/18 97.7 18 157/78 96 08:11 (104) 11/28/18 Room Air 14:43 11/27/18 21 00:43 Intake and Output 11/28/18 11/28/18 11/29/18 1515:00 23:00 07:00 IntakeIntake Total 250 ml 911 ml BalanceBalance 250 ml 911 ml Medications Medications Current Medications IV Flush (NS 3 ml) 3 ml PER PROTOCOL IV ; Start 11/16/18 at 09:00 Ondansetron HCl (Zofran Inj) 4 mg Q6H PRN IV NAUSEA AND/OR VOMITING; Start 11/16/18 at 09:00 Acetaminophen (Tylenol Tab) 650 mg Q6H PRN PO PAIN LEVEL 1-3 OR FEVER Last administered on 11/28/18at 20:14; Admin Dose 650 MG; Start 11/16/18 at 09:00 Docusate Sodium (Colace) 100 mg Q12H PRN PO CONSTIPATION; Start 11/16/18 at 09:00 Magnesium Hydroxide (Milk Of Mag) 30 ml DAILY PRN PO CONSTIPATION; Start 11/16/18 at 09:00 Folic Acid (Folic Acid) 1 mg DAILY GTB Last administered on 11/29/18 09:21; Admin Dose 1 MG; Start 11/16/18 at 09:00 Albuterol/ Ipratropium (Duoneb) 3 ml Q6 PRN HHN sob; Start 11/16/18 at 09:00 Linagliptin (Tradjenta) 5 mg DAILY GTB Last administered on 11/29/18 09:22; Admin Dose 5 MG; Start 11/16/18 at 09:00 Lorazepam (Ativan) 1 mg HS PRN GTB ANXIETY Last administered on 11/28/18 20:16; Admin Dose 1 MG; Start 11/16/18 at 09:00 Quetiapine Fumarate (Seroquel) 25 mg BID GTB Last administered on 11/29/18 09 :21; Admin Dose 25 MG; Start 11/16/18 at 09:00 Senna (Senokot) 1 tab BID PO Last administered on 11/29/18 09:20; Admin Dose 1 TAB; Start 11/16/18 at 09:00 Valproate Sodium (Depakene Liquid Cup) 250 mg Q8 PO Last administered on 11/29/18 06:10; Admin Dose 250 MG; Start 11/16/18 at 14:00 Sodium Chloride (NS) -To prime the dialy... DIRECTED FOR HD PRN IV SBP<90; Start 11/16/18 at 15:00 Hydralazine HCl (Apresoline) 10 mg Q4H PRN IV ELEVATED BLOOD PRESSURE Last administered on 11/17/18at 14:57; Admin Dose 10 MG; Start 11/17/18 at 10:30 Acetaminophen/ Hydrocodone Bitart ([place] (5/325)) 1 tab Q3H PRN PO MODERATE PAIN LEVEL 4-6 Last administered on 11/27/18 08:12; Admin Dose 1 TAB; Start 11/17/18 at 14:30 Hydralazine HCl (Apresoline) 25 mg Q8 PO Last administered on 11/29/18 06:11; Admin Dose 25 MG; Start 11/18/18 at 06:00 Metoprolol Tartrate (Lopressor) 50 mg BID GTB Last administered on 11/28/18 20:15; Admin Dose 50 MG; Start 11/18/18 at 09:00 Albumin Human 50 ml @ 100 mls/hr WITH DIALYSIS PRN IV SBP<90 Last administered on 11/22/18 11:25; Admin Dose 100 MLS/HR; Start 11/18/18 at 14:30 Morphine Sulfate (morphine) 6 mg Q4H PRN PO SEVERE PAIN LEVEL 7-10 Last administered on 11/27/18 00:35; Admin Dose 6 MG; Start 11/18/18 at 23:00 Docusate Sodium (Colace Liquid Cup) 100 mg DAILY GTB Last administered on 11/29/18 09:20; Admin Dose 100 MG; Start 11/19/18 at 09:30 Guaifenesin/ Dextromethorphan (Robitussin Dm Liquid Cup) 5 ml Q4H PRN PO cough Last administered on 11/23/18 21:50; Admin Dose 5 ML; Start 11/20/18 at 14:00 Amlodipine Besylate (Norvasc) 2.5 mg BID GTB Last administered on 11/28/18 20:15; Admin Dose 2.5 MG; Start 11/22/18 at 21:00 Vancomycin HCl (Vanco Iv Per Pharmacy) VANCOMYCIN PER PHARMACY PER PROTOCOL XX ; Start 11/23/18 at 12:00 Meropenem/Sodium Chloride 50 ml @ 100 mls/hr Q24H IVPB Last administered on 11/28/18at 14:37; Admin Dose 100 MLS/HR; Start 11/24/18 at 13:00 Multivit/Ca Carb/ B Cmplx/FA/Prenat (Kianna-Roque) 1 tab DAILY GTB Last administe red on 11/29/18 09:20; Admin Dose 1 TAB; Start 11/24/18 at 09:00 Lansoprazole (Prevacid) 30 mg DAILY GTB Last administered on 11/29/18 09:21; Admin Dose 30 MG; Start 11/26/18 at 09:00 Ferrous Sulfate (Ferrous Sulfate (Ec)) 325 mg BID PO Last administered on 11/29/18 09:21; Admin Dose 325 MG; Start 11/25/18 at 21:00 Acetaminophen (Tylenol Supp) 650 mg Q4H PRN [place] MILD PAIN(1-3) OR TEMP>38C Last administered on 11/26/18 08:32; Admin Dose 650 MG; Start 11/26/18 at 08:30 Vancomycin/Sodium Chloride 250 ml @ 125 mls/hr Q72H IVPB Last administered on 11/27/18at 15:33; Admin Dose 125 MLS/HR; Start 11/27/18 at 16:00 Caspofungin 50 mg/ Sodium Chloride 250 ml @ 250 mls/hr Q24H IVPB Last admini stered on 11/29/18at 11:22; Admin Dose 250 MLS/HR; Start 11/28/18 at 11:00 SEVERO GARCIA NP Nov 29, 2018 15:21
[2018-11-29] MEDS: MEROPENEM 500MG/50 ML (PMX) 50 ML IVPB SCH (16:00)
--- NOTE | 2018-11-29 18:55 | CONS ---
Date/Time of Note Date/Time of Note DATE: 11/29/18 TIME: 18:55 Consult Date/Type/Reason Admit Date/Time Nov 16, 2018 at 05:51 Initial Consult Date 11/16/18 Type of Consultation: cv Requesting Provider: DYLON WALLS MD Subjective Cardiology follow up note Sl DW/ Staff pt is still getting confused and agitated no report of any chest pain or pressure or palpitations but pt is a very poor historian s/p I/D 11/17 EGD 11.18.18 O: General: Elderly frail male in no acute distress HEENT: NC/AT. pupils are equal. round. NECK: NO JVD. no stridor. CV: RRR. systolic murmur; no gallop or rubs. PULM: no wheezing or rhonchi. GI: SOFT, NT, ND, no rebound or guarding Extremity: Right upper extremity is covered with dressing neuro: awake but confused Psych: calm now rectal: deferred CXR 11/22: 1. Left lung interstitial opacities may reflect edema or pneumonia. Findings are new when compared to the prior examination. 2. Mild cardiomegaly and aortic atherosclerosis. 3. Left chest Perma-Cath with tip in the lower SVC. review of old chart shows ECHO done Oct 2018: Normal left ventricular systolic function. Normal left ventricular cavity size. Moderate concentric left ventricular hypertrophy. Ejection fraction is visually estimated at 65 %. Abnormal Diastolic Function. Mitral valve leaflets appear moderately thickened. Moderate mitral annular calcification. Trace mitral regurgitation. Aortic valve not well visualized. No hemodynamically significant aortic stenosis by doppler. Aortic sclerosis without significant stenosis. Aortic cusps appear mildly calcified. Mild to moderate aortic valve regurgita tion. Estimated peak PA systolic pressure 40 mmHg. Tricuspid valve appears moderately thickened. There is mild tricuspid regurgitation. Objective Vital Signs Date Temp Pulse Resp B/P (MAP) Pulse Ox O2 O2 Flow FiO2 Time Delivery Rate 11/29/18 112 15:30 11/29/18 98.0 17 125/59 96 14:00 (81) 11/29/18 Nasal 2.0 13:20 Cannula 11/27/18 21 00:43 Intake and Output 11/28/18 11/28/18 11/29/18 1515:00 23:00 07:00 IntakeIntake Total 250 ml 911 ml BalanceBalance 250 ml 911 ml Results/Medications Result Diagram: 11/29/18 0556 11/29/18 0556 Results 24 hrs Laboratory Tests Test 11/29/18 05:56 11/29/18 09:26 White Blood Count 7.5 Red Blood Count 3.28 L Hemoglobin 9.0 L Hematocrit 28.7 L Mean Corpuscular Volume 87.5 Mean Corpuscular Hemoglobin 27.4 L Mean Corpuscular Hemoglobin Concent 31.4 L Red Cell Distribution Width 16.5 H Platelet Count 265 # Mean Platelet Volume 11.3 H Immature Granulocytes % 2.100 H Neutrophils % 58.4 Lymphocytes % 15.7 Monocytes % 15.8 H Eosinophils % 7.5 H Basophils % 0.5 Nucleated Red Blood Cells % 0.4 H Immature Granulocytes # 0.160 H Neutrophils # 4.4 Lymphocytes # 1.2 Monocytes # 1.2 H Eosinophils # 0.6 H Basophils # 0.0 Nucleated Red Blood Cells # 0.0 Sodium Level 135 Potassium Level 4.3 Chloride Level 97 Carbon Dioxide Level 30 Anion Gap 8 Blood Urea Nitrogen 63 H Creatinine 2.60 H Est Glomerular Filtrat Rate mL/min Glucose Level 124 Calcium Level 8.7 Phosphorus Level 3.6 Magnesium Level 2.7 H Bedside Glucose 123 Medications Current Medications IV Flush (NS 3 ml) 3 ml PER PROTOCOL IV ; Start 11/16/18 at 09:00 Ondansetron HCl (Zofran Inj) 4 mg Q6H PRN IV NAUSEA AND/OR VOMITING; Start 11/16/18 at 09:00 Acetaminophen (Tylenol Tab) 650 mg Q6H PRN PO PAIN LEVEL 1-3 OR FEVER Last administered on 11/28/18at 20:14; Admin Dose 650 MG; Start 11/16/18 at 09:00 Docusate Sodium (Colace) 100 mg Q12H PRN PO CONSTIPATION; Start 11/16/18 at 09:00 Magnesium Hydroxide (Milk Of Mag) 30 ml DAILY PRN PO CONSTIPATION; Start 11/16/18 at 09:00 Folic Acid (Folic Acid) 1 mg DAILY GTB Last administered on 11/29/18at 09:21; Admin Dose 1 MG; Start 11/16/18 at 09:00 Albuterol/ Ipratropium (Duoneb) 3 ml Q6 PRN HHN sob; Start 11/16/18 at 09:00 Linagliptin (Tradjenta) 5 mg DAILY GTB Last administered on 11/29/18 09:22; Admin Dose 5 MG; Start 11/16/18 at 09:00 Lorazepam (Ativan) 1 mg HS PRN GTB ANXIETY Last administered on 11/28/18 20:16; Admin Dose 1 MG; Start 11/16/18 at 09:00 Quetiapine Fumarate (Seroquel) 25 mg BID GTB Last administered on 11/29/18 09:21; Admin Dose 25 MG; Start 11/16/18 at 09:00 Senna (Senokot) 1 tab BID PO Last administered on 11/29/18 09:20; Admin Dose 1 TAB; Start 11/16/18 at 09:00 Valproate Sodium (Depakene Liquid Cup) 250 mg Q8 PO Last administered on 11/29/18 16:00; Admin Dose 250 MG; Start 11/16/18 at 14:00 Sodium Chloride (NS) -To prime the dialy... DIRECTED FOR HD PRN IV SBP<90; Start 11/16/18 at 15:00 Hydralazine HCl (Apresoline) 10 mg Q4H PRN IV ELEVATED BLOOD PRESSURE Last administered on 11/17/18 14:57; Admin Dose 10 MG; Start 11/17/18 at 10:30 Acetaminophen/ Hydrocodone Bitart ([place] (5/325)) 1 tab Q3H PRN PO MODERATE PAIN LEVEL 4-6 Last administered on 11/27/18 08:12; Admin Dose 1 TAB; Start 11/17/18 at 14:30 Hydralazine HCl (Apresoline) 25 mg Q8 PO Last administered on 11/29/18 16:00; Admin Dose 25 MG; Start 11/18/18 at 06:00 Metoprolol Tartrate (Lopressor) 50 mg BID GTB Last administered on 11/28/18 20:15; Admin Dose 50 MG; Start 11/18/18 at 09:00 Albumin Human 50 ml @ 100 mls/hr WITH DIALYSIS PRN IV SBP<90 Last administered on 11/22/18 11:25; Admin Dose 100 MLS/HR; Start 11/18/18 at 14:30 Morphine Sulfate (morphine) 6 mg Q4H PRN PO SEVERE PAIN LEVEL 7-10 Last administered on 11/27/18 00:35; Admin Dose 6 MG; Start 11/18/18 at 23:00 Docusate Sodium (Colace Liquid Cup) 100 mg DAILY GTB Last administered on 11/29/18 09:20; Admin Dose 100 MG; Start 11/19/18 at 09:30 Guaifenesin/ Dextromethorphan (Robitussin Dm Liquid Cup) 5 ml Q4H PRN PO cough Last administered on 11/23/18 21:50; Admin Dose 5 ML; Start 11/20/18 at 14:00 Amlodipine Besylate (Norvasc) 2.5 mg BID GTB Last administered on 11/28/18 20:15; Admin Dose 2.5 MG; Start 11/22/18 at 21:00 Vancomycin HCl (Vanco Iv Per Pharmacy) VANCOMYCIN PER PHARMACY PER PROTOCOL XX ; Start 11/23/18 at 12:00 Meropenem/Sodium Chloride 50 ml @ 100 mls/hr Q24H IVPB Last administered on 11/29/18 16:00; Admin Dose 100 MLS/HR; Start 11/24/18 at 13:00 Multivit/Ca Carb/ B Cmplx/FA/Prenat (Kianna-Roque) 1 tab DAILY GTB Last administered on 11/29/18 09:20; Admin Dose 1 TAB; Start 11/24/18 at 09:00 Lansoprazole (Prevacid) 30 mg DAILY GTB Last administered on 11/29/18 09:21; Admin Dose 30 MG; Start 11/26/18 at 09:00 Ferrous Sulfate (Ferrous Sulfate (Ec)) 325 mg BID PO Last administered on 11/29/18 09:21; Admin Dose 325 MG; Start 11/25/18 at 21:00 Acetaminophen (Tylenol Supp) 650 mg Q4H PRN [place] MILD PAIN(1-3) OR TEMP>38C Last administered on 11/26/18 08:32; Admin Dose 650 MG; Start 11/26/18 at 08:30 Vancomycin/Sodium Chloride 250 ml @ 125 mls/hr Q72H IVPB Last administered on 11/27/18 15:33; Admin Dose 125 MLS/HR; Start 11/27/18 at 16:00 Caspofungin 50 mg/ Sodium Chloride 250 ml @ 250 mls/hr Q24H IVPB Last administered on 11/29/18at 11:22; Admin Dose 250 MLS/HR; Start 11/28/18 at 11:00 Assessment/Plan Chief Complaint/Hosp Course Cardiovascular preop evaluation Right hand hematoma: Status post IND now Renal failure on dialysis Hypertension Dementia Anemia Possible GI bleed: Status post EGD AI Recommendations: transfusion with HD prn Dialysis as per renal team Neuro workup and treatment as per internal medicine Thank you for his referral. We will continue to follow along with you CHRISTEN ESCOBEDO MD [facility] CHRISTEN ESCOBEDO MD Nov 29, 2018 18:55
--- NOTE | 2018-11-29 20:01 | PN ---
DATE: 11/29/2018 SUBJECTIVE: The patient seen. The patient is more alert, looks better. I did start the patient on caspofungin due to fungemia. PHYSICAL EXAMINATION: VITAL SIGNS: Temperature is 98, pulse 90, respirations 17, blood pressure 125/59, saturation 96%. GENERAL: No acute events atraumatic. pale. CARDIOVASCULAR: S1, S2, regular rate. LUNGS: Clear. ABDOMEN: Soft, nontender. EXTREMITIES: No clubbing, cyanosis, or edema. LABORATORY DATA: White count 7.4, hemoglobin 9, hematocrit 29, platelets of 65 with normal different ial. Chemistry: Sodium is 135, potassium 4.3, bicarbonate 30, BUN 63, creatinine 2.6, glucose 124. Patient's blood culture did show yeast. MEDICATIONS: 1. Caspofungin dose per pharmacy. 2. Vancomycin dose per pharmacy. 3. Prevacid 30 mg daily. 4. Tylenol p.r.n. 5. ____ b.i.d. 6. Merrem dose per pharmacy. 7. Kianna-Roque 1 tab daily. 8. Amlodipine 2.5 b.i.d. 9. Robitussin p.r.n. 10. Colace daily. 11. Morphine p.r.n. 12. Lopressor 50 b.i.d. 13. Hydralazine 25 q.8. 14. [place] p.r.n. 15. Hydralazine p.r.n. 16. Depakote 250 q.8h. 17. Zofran. 18. Tylenol Cold. 19. Folic acid. 20. DuoNeb. 21. Tradjenta 5 mg daily. 22. Ativan p.r.n. 23. Seroquel 25 b.i.d. 24. Senna 1 tab b.i.d. ASSESSMENT AND PLAN: This is an unfortunate 83-year-old Stateless female with history of end-stage re nal disease, dementia, psychiatric disorder, COPD, who presented with right hand severe hematoma, sta tus post incision and drainage, also developed unfortunately pneumonia and now fungemia. 1. Respiratory. Stable. Remains on antibiotics for pneumonia. Follow up chest x-ray. 2. Cardiovascular. Stable. Blood pressure is normal. 3. End-stage renal disease, dialysis 3 times a week. 4. Fungemia. Continue Cancidas. Followup culture results. The patient may need to have dialysis r emoved because of fungemia. We will discuss with staff. 5. Dysphagia. Continue G-tube feeding for now. 6. Diabetes mellitus, controlled with glucose level in the 100s. 7. Anemia, status post transfusion. H and H is stable. May benefit from Epogen. 8. Clinically stable. We will discuss with again staff regarding ongoing treatment with antibiotics , type of antifungal medications and see if we need to remove again the Perm-A-Cath. Dictated By: DYLON HULL/MADAN Conf#: [id number] DID#: [id number]
[2018-11-29] MEDS: LORAZEPAM 1 MG TAB GTB PRN (20:41)
[2018-11-29] MEDS: ACETAMINOPHEN 325 MG TAB PO PRN (20:41)
[2018-11-30 02:00] VITALS: BP 130/63; PULSE 83; RESP 18
[2018-11-30] MEDS: VALPROIC ACID LIQUID CUP 250 MG/5 ML CUP PO SCH ×3 (05:00→21:02)
[2018-11-30 08:01] VITALS: BP 163/72; PULSE 83
[2018-11-30 09:09] VITALS: BP 136/83; PULSE 85
[2018-11-30] MEDS: DOCUSATE SODIUM 10 MG/ML (10ML CUP) GTB SCH (09:17)
[2018-11-30] MEDS: FOLIC ACID 1 MG TAB GTB SCH (09:17)
[2018-11-30] MEDS: MULTIVIT/CA CARB/B CMPLX/FA TAB GTB SCH (09:18)
[2018-11-30] MEDS: LANSOPRAZOLE 30 MG CAP GTB SCH (09:18)
[2018-11-30] MEDS: AMLODIPINE 2.5 MG TAB GTB SCH ×2 (09:18→21:02)
[2018-11-30] MEDS: QUETIAPINE 25 MG TAB GTB SCH ×2 (09:18→21:02)
[2018-11-30] MEDS: METOPROLOL 50 MG TAB GTB SCH ×2 (09:18→21:02)
[2018-11-30] MEDS: SENNA TAB PO SCH ×2 (09:19→21:02)
[2018-11-30] MEDS: FERROUS SULFATE (EC) 325 MG TAB PO SCH ×2 (09:19→21:02)
[2018-11-30] MEDS: LINAGLIPTIN 5 MG TABLET GTB SCH (09:25)
[2018-11-30] MEDS: CASPOFUNGIN 50 MG in SOD CHLORIDE 0.9% 250 ML IVPB SCH (11:54)
[2018-11-30] MEDS: MEROPENEM 500MG/50 ML (PMX) 50 ML IVPB SCH (12:57)
[2018-11-30 14:43] VITALS: BP 158/67; PULSE 84; RESP 18
--- NOTE | 2018-11-30 14:55 | CONS ---
Assessment/Plan Assessment/Plan Hospital Course No acute events overnight per report, patient is sleeping sleeping. Looks comfortable. Microbiology: Blood cultures growing Dominique glabrata Antimicrobials: Vancomycin, meropenem, Cancidas Chest x-ray 11/29/18: Worsening mild left upper lobe infiltrate. No other significant change. Indwelling: Left chest permacath, PEG Physical examination: Chronically ill-appearing elderly woman who is awake, conf used, in no distress. Head atraumatic normocephalic. Neck is supple. Chest rise symmetrical breath sounds diminished bases. Heart: S1-S2. Abdomen soft bowel sounds present, right upper extremity Armani wrapped Assessment: 1. Sepsis with fungemia infected permacath? 2. Healthcare associated pneumonia, possibly aspiration 3. Right hand hematoma, status post I&D 11/17/18 4. Status post VRE bacteremia, status post new Pcath 5. End-stage renal disease, hemodialysis dependent 6. Dementia 7. Failure to thrive 8. Diabetes 9. Anemia Plan: Clinically unchanged, continue antibiotics, repeat bld cx with next HD, continue aspiration precautions Result Diagram: 11/29/18 0556 11/29/18 0556 Results 24hrs Laboratory Tests Test 11/30/18 09:22 Bedside Glucose 131 Consultation Date/Type/Reason Admit Date/Time Nov 16, 2018 at 05:51 Initial Consult Date 11/16/18 Type of Consult id Requesting Provider: DYLON WALLS MD Exam/Review of Systems Vital Signs Vitals Vital Signs Date Temp Pulse Resp B/P (MAP) Pulse Ox O2 O2 Flow FiO2 Time Delivery Rate 11/30/18 98.2 84 18 158/67 96 Room Air 14:43 (97) 11/29/18 2.0 13:20 11/27/18 21 00:43 Intake and Output 11/29/18 11/29/18 11/30/18 1515:00 23:00 07:00 IntakeIntake Total 830 ml 350 ml OutputOutput Total 200 ml BalanceBalance 630 ml 350 ml Medications Medications Current Medications IV Flush (NS 3 ml) 3 ml PER PROTOCOL IV ; Start 11/16/18 at 09:00 Ondansetron HCl (Zofran Inj) 4 mg Q6H PRN IV NAUSEA AND/OR VOMITING; Start 11/16 at 09:00 Acetaminophen (Tylenol Tab) 650 mg Q6H PRN PO PAIN LEVEL 1-3 OR FEVER Last administered on 11/29/18 20:41; Admin Dose 650 MG; Start 11/16/18 at 09:00 Docusate Sodium (Colace) 100 mg Q12H PRN PO CONSTIPATION; Start 11/16/18 at 09:00 Magnesium Hydroxide (Milk Of Mag) 30 ml DAILY PRN PO CONSTIPATION; Start 11/16/18 at 09:00 Folic Acid (Folic Acid) 1 mg DAILY GTB Last administered on 11/30/18 09:17; Admin Dose 1 MG; Start 11/16/18 at 09:00 Albuterol/ Ipratropium (Duoneb) 3 ml Q6 PRN HHN sob; Start 11/16/18 at 09:00 Linagliptin (Tradjenta) 5 mg DAILY GTB Last administered on 11/30/18 09:25; Admin Dose 5 MG; Start 11/16/18 at 09:00 Lorazepam (Ativan) 1 mg HS PRN GTB ANXIETY Last administered on 11/29/18 20:41; Admin Dose 1 MG; Start 11/16/18 at 09:00 Quetiapine Fumarate (Seroquel) 25 mg BID GTB Last administered on 11/30/18 09:18; Admin Dose 25 MG; Start 11/16/18 at 09:00 Senna (Senokot) 1 tab BID PO Last administered on 11/30/18 09:19; Admin Dose 1 TAB; Start 11/16/18 at 09:00 Valproate Sodium (Depakene Liquid Cup) 250 mg Q8 PO Last administered on 11/30/18 14:42; Admin Dose 250 MG; Start 11/16/18 at 14:00 Sodium Chloride (NS) -To prime the dialy... DIRECTED FOR HD PRN IV SBP<90; Start 11/16/18 at 15:00 Hydralazine HCl (Apresoline) 10 mg Q4H PRN IV ELEVATED BLOOD PRESSURE Last administered on 11/17/18 14:57; Admin Dose 10 MG; Start 11/17/18 at 10:30 Acetaminophen/ Hydrocodone Bitart ([place] (5/325)) 1 tab Q3H PRN PO MODERATE PAIN LEVEL 4-6 Last administered on 11/27/18 08:12; Admin Dose 1 TAB; Start 11/17/18 at 14:30 Hydralazine HCl (Apresoline) 25 mg Q8 PO Last administered on 11/30/18 14:42; Admin Dose 25 MG; Start 11/18/18 at 06:00 Metoprolol Tartrate (Lopressor) 50 mg BID GTB Last administered on 11/30/18 09:18; Admin Dose 50 MG; Start 11/18/18 at 09:00 Albumin Human 50 ml @ 100 mls/hr WITH DIALYSIS PRN IV SBP<90 Last administered on 11/22/18 11:25; Admin Dose 100 MLS/HR; Start 11/18/18 at 14:30 Morphine Sulfate (morphine) 6 mg Q4H PRN PO SEVERE PAIN LEVEL 7-10 Last administered on 11/27/18 00:35; Admin Dose 6 MG; Start 11/18/18 at 23:00 Docusate Sodium (Colace Liquid Cup) 100 mg DAILY GTB Last administered on 11/30/18 09:17; Admin Dose 100 MG; Start 11/19/18 at 09:30 Guaifenesin/ Dextromethorphan (Robitussin Dm Liquid Cup) 5 ml Q4H PRN PO cough Last administered on 11/23/18 21:50; Admin Dose 5 ML; Start 11/20/18 at 14:00 Amlodipine Besylate (Norvasc) 2.5 mg BID GTB Last administered on 11/30/18 09:18; Admin Dose 2.5 MG; Start 11/22/18 at 21:00 Vancomycin HCl (Vanco Iv Per Pharmacy) VANCOMYCIN PER PHARMACY PER PROTOCOL XX ; Start 11/23/18 at 12:00 Meropenem/Sodium Chloride 50 ml @ 100 mls/hr Q24H IVPB Last administered on 11/30/18 12:57; Admin Dose 100 MLS/HR; Start 11/24/18 at 13:00 Multivit/Ca Carb/ B Cmplx/FA/Prenat (Kianna-Roque) 1 tab DAILY GTB Last administered on 11/30/18 09:18; Admin Dose 1 TAB; Start 11/24/18 at 09:00 Lansoprazole (Prevacid) 30 mg DAILY GTB Last administered on 11/30/18 09:18; Admin Dose 30 MG; Start 11/26/18 at 09:00 Ferrous Sulfate (Ferrous Sulfate (Ec)) 325 mg BID PO Last administered on 11/30/18at 09:19; Admin Dose 325 MG; Start 11/25/18 at 21:00 Acetaminophen (Tylenol Supp) 650 mg Q4H PRN [place] MILD PAIN(1-3) OR TEMP>38C Last administered on 11/26/18at 08:32; Admin Dose 650 MG; Start 11/26/18 at 08:30 Vancomycin/Sodium Chloride 250 ml @ 125 mls/hr Q72H IVPB Last administered on 11/27/18at 15:33; Admin Dose 125 MLS/HR; Start 11/27/18 at 16:00 Caspofungin 50 mg/ Sodium Chloride 250 ml @ 250 mls/hr Q24H IVPB Last administered on 11/30/18at 11:54; Admin Dose 250 MLS/HR; Start 11/28/18 at 11:00 Date/Time of Note Date/Time of Note DATE: 11/30/18 TIME: 14:51 PHYLICIA HOLCOMB NP Nov 30, 2018 14:55
--- NOTE | 2018-11-30 15:14 | PN ---
Date/Time of Note Date/Time of Note DATE: 11/30/18 TIME: 15:12 Assessment/Plan VTE Prophylaxis Risk score (from Ns)>0 risk: 5 SCD applied (from Nsg): Yes Pharmacological prophylaxis: NA/contraindicated Pharm contraindication: low risk/ambulating Lines/Catheters IV Catheter Type (from Nrsg): Saline Lock Urinary Cath still in place: No Assessment/Plan Hospital Course 83 y/o with 1. Right hand swelling, likely secondary to hematoma, questionable fall. with compression s/p I and D on 11/17/18 2. Gastrointestinal bleed with melena. 3. Hypertension. 4. Diabetes. 5. End-stage renal disease on hemodialysis. 6. History of falls. 7. Vascular dementia.with AMS 8. History of sepsis with VRE. 9. Dysphagia, status post G-tube. 10. History of hip fracture. 11. Thrombocytopenia. 12. Atherosclerotic heart disease. 13 ongoing fevers questionable pneumonia, now with yeast bacterimia Plan - HD tmw - Permcath removal ? called Dr Sagastume - CHEST X ray +Pneumonia - cw vancomycin/meropenem/caspofungin - Monitor fevers - Hold BP meds before hd - renally dose all meds Result Diagram: 11/29/18 0556 11/29/18 0556 Results 24hrs Laboratory Tests Test 11/30/18 09:22 Bedside Glucose 131 Subjective 24 Hr Interval Summary Free Text/Dictation S/P hd yesterday Exam/Review of Systems Vital Signs Vitals Vital Signs Date Temp Pulse Resp B/P (MAP) Pulse Ox O2 O2 Flow FiO2 Time Delivery Rate 11/30/18 98.2 84 18 158/67 96 Room Air 14:43 (97) 11/29/18 2.0 13:20 11/27/18 21 00:43 Intake and Output 11/29/18 11/29/18 11/30/18 1515:00 23:00 07:00 IntakeIntake Total 830 ml 350 ml OutputOutput Total 200 ml BalanceBalance 630 ml 350 ml Exam eft chest Permcath Neck: supple Respiratory: diminished breath sounds Cardiovascular: regular rate and rhythm Musculoskeletal: muscle weakness 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: confused Skin: ecchymosis, laceration, other Medications Medications Current Medications IV Flush (NS 3 ml) 3 ml PER PROTOCOL IV ; Start 11/16/18 at 09:00 Ondansetron HCl (Zofran Inj) 4 mg Q6H PRN IV NAUSEA AND/OR VOMITING; Start 11/16/18 at 09:00 Acetaminophen (Tylenol Tab) 650 mg Q6H PRN PO PAIN LEVEL 1-3 OR FEVER Last administered on 11/29/18 20:41; Admin Dose 650 MG; Start 11/16/18 at 09:00 Docusate Sodium (Colace) 100 mg Q12H PRN PO CONSTIPATION; Start 11/16/18 at 09:00 Magnesium Hydroxide (Milk Of Mag) 30 ml DAILY PRN PO CONSTIPATION; Start 11/16/18 at 09:00 Folic Acid (Folic Acid) 1 mg DAILY GTB Last administered on 11/30/18 09:17; Admin Dose 1 MG; Start 11/16/18 at 09:00 Albuterol/ Ipratropium (Duoneb) 3 ml Q6 PRN HHN sob; Start 11/16/18 at 09:00 Linagliptin (Tradjenta) 5 mg DAILY GTB Last administered on 11/30/18 09:25; Admin Dose 5 MG; Start 11/16/18 at 09:00 Lorazepam (Ativan) 1 mg HS PRN GTB ANXIETY Last administered on 11/29/18 20:41; Admin Dose 1 MG; Start 11/16/18 at 09:00 Quetiapine Fumarate (Seroquel) 25 mg BID GTB Last administered on 11/30/18 09:18; Admin Dose 25 MG; Start 11/16/18 at 09:00 Senna (Senokot) 1 tab BID PO Last administered on 11/30/18 09:19; Admin Dose 1 TAB; Start 11/16/18 at 09:00 Valproate Sodium (Depakene Liquid Cup) 250 mg Q8 PO Last administered on 11/30/18 14:42; Admin Dose 250 MG; Start 11/16/18 at 14:00 Sodium Chloride (NS) -To prime the dialy... DIRECTED FOR HD PRN IV SBP<90; Start 11/16/18 at 15:00 Hydralazine HCl (Apresoline) 10 mg Q4H PRN IV ELEVATED BLOOD PRESSURE Last administered on 11/17/18 14:57; Admin Dose 10 MG; Start 11/17/18 at 10:30 Acetaminophen/ Hydrocodone Bitart ([place] (5/325)) 1 tab Q3H PRN PO MODERATE PAIN LEVEL 4-6 Last administered on 11/27/18 08:12; Admin Dose 1 TAB; Start 11/17/18 at 14:30 Hydralazine HCl (Apresoline) 25 mg Q8 PO Last administered on 11/30/18 14:42; Admin Dose 25 MG; Start 11/18/18 at 06:00 Metoprolol Tartrate (Lopressor) 50 mg BID GTB Last administered on 11/30/18 09:18; Admin Dose 50 MG; Start 11/18/18 at 09:00 Albumin Human 50 ml @ 100 mls/hr WITH DIALYSIS PRN IV SBP<90 Last administered on 11/22/18 11:25; Admin Dose 100 MLS/HR; Start 11/18/18 at 14:30 Morphine Sulfate (morphine) 6 mg Q4H PRN PO SEVERE PAIN LEVEL 7-10 Last administered on 11/27/18 00:35; Admin Dose 6 MG; Start 11/18/18 at 23:00 Docusate Sodium (Colace Liquid Cup) 100 mg DAILY GTB Last administered on 11/30/18 09:17; Admin Dose 100 MG; Start 11/19/18 at 09:30 Guaifenesin/ Dextromethorphan (Robitussin Dm Liquid Cup) 5 ml Q4H PRN PO cough Last administered on 11/23/18 21:50; Admin Dose 5 ML; Start 11/20/18 at 14:00 Amlodipine Besylate (Norvasc) 2.5 mg BID GTB Last administered on 11/30/18 09:18; Admin Dose 2.5 MG; Start 11/22/18 at 21:00 Vancomycin HCl (Vanco Iv Per Pharmacy) VANCOMYCIN PER PHARMACY PER PROTOCOL XX ; Start 11/23/18 at 12:00 Meropenem/Sodium Chloride 50 ml @ 100 mls/hr Q24H IVPB Last administered on 11/30/18 12:57; Admin Dose 100 MLS/HR; Start 11/24/18 at 13:00 Multivit/Ca Carb/ B Cmplx/FA/Prenat (Kianna-Roque) 1 tab DAILY GTB Last administered on 11/30/18 09:18; Admin Dose 1 TAB; Start 11/24/18 at 09:00 Lansoprazole (Prevacid) 30 mg DAILY GTB Last administered on 11/30/18at 09:18; Admin Dose 30 MG; Start 11/26/18 at 09:00 Ferrous Sulfate (Ferrous Sulfate (Ec)) 325 mg BID PO Last administered on 11/30/18 09:19; Admin Dose 325 MG; Start 11/25/18 at 21:00 Acetaminophen (Tylenol Supp) 650 mg Q4H PRN [place] MILD PAIN(1-3) OR TEMP>38C Last administered on 11/26/18at 08:32; Admin Dose 650 MG; Start 11/26/18 at 08:30 Vancomycin/Sodium Chloride 250 ml @ 125 mls/hr Q72H IVPB Last administered on 11/27/18at 15:33; Admin Dose 125 MLS/HR; Start 11/27/18 at 16:00 Caspofungin 50 mg/ Sodium Chloride 250 ml @ 250 mls/hr Q24H IVPB Last administered on 11/30/18at 11:54; Admin Dose 250 MLS/HR; Start 11/28/18 at 11:00 JOSE RAUL ANDREWS MD Nov 30, 2018 15:14
[2018-11-30] MEDS: VANCOMYCIN 750 MG (PMX) 250 ML IVPB SCH (15:41)
--- NOTE | 2018-11-30 16:00 | CONS ---
Date/Time of Note Date/Time of Note DATE: 11/30/18 TIME: 16:00 Assessment/Plan Assessment/Plan Assessment/Plan 83F w/ multiple medical conditions most notably, DM, ESRD on HD, dementia, w/ recent line sepsis s/p removal of RIJ PC w/ subsequent LIJ PC placement by Dr. Sagastume previously, now w/ s/p I&D R hand hematoma, GI bleed w/ melena and 1 of 2 blood cultures from 11/24 growing kaylah glabrata and had h/o of recent persistent fevers, but has been afebrile since 11/26, WBC normal; repeat blood cultures pending; on vanco, erickson and caspofungin. LIJ PC site does not have any overt signs of infection. Plan: -Recommend cont antibiotic/antifungal therapy - follow up repeat blood cultures - monitor for recurrent fevers or signs of SIRS/Sepsis -- would not recommend removing LIJ PC currently -Also recommend consider further discussion with family regarding goals of care given multiple issues along w/ severe dementia -D/w Dr. Sagastume Result Diagram: 11/29/18 0556 11/29/18 0556 Results 24hrs Laboratory Tests Test 11/30/18 09:22 Bedside Glucose 131 Consultation Date/Type/Reason Admit Date/Time Nov 16, 2018 at 05:51 Date of Consultation: Nov 30, 2018 Reason for Consultation +Blood culture Requesting Provider: JOSE RAUL ANDREWS MD Hx of Present Illness 83F w/ multiple medical conditions most notably, DM, ESRD on HD, dementia, w/ recent line sepsis s/p removal of RIJ PC w/ subsequent LIJ PC placement by Dr. Sagastume 10/22/18 and 10/25/18, respectively. She now was readmitted for GI bleed and hematoma to R hand s/p I&D. The patient had fevers and recent blood culture (1 of 2 bottles) grew Kaylah glabrata on 11/24/17. Her last low grade fever was 100.2 on 11/26/18 and has been afebrile since. She has repeat blood cultures pending. There is concern for possible recurrent line sepsis. WBC normal. She is normotensive. She is on vanco, erickson and caspofungin. Unable to perform ROS due to dementia and inappropriate responses Past Medical History End-stage renal disease on dialysis 3 times a week, diabetes mellitus, anemia, osteoarthritis, COPD, diastolic dysfunction heart failure, dysphagia, moderate caloric-protein malnutrition, recent line sepsis, dementia, anxiety Medications Current Medications IV Flush (NS 3 ml) 3 ml PER PROTOCOL IV ; Start 11/16/18 at 09:00 Ondansetron HCl (Zofran Inj) 4 mg Q6H PRN IV NAUSEA AND/OR VOMITING; Start 11/16/18 at 09:00 Acetaminophen (Tylenol Tab) 650 mg Q6H PRN PO PAIN LEVEL 1-3 OR FEVER Last administered on 11/29/18 20:41; Admin Dose 650 MG; Start 11/16/18 at 09:00 Docusate Sodium (Colace) 100 mg Q12H PRN PO CONSTIPATION; Start 11/16/18 at 09:00 Magnesium Hydroxide (Milk Of Mag) 30 ml DAILY PRN PO CONSTIPATION; Start at 09:00 Folic Acid (Folic Acid) 1 mg DAILY GTB Last administered on 11/30/18 09:17; Admin Dose 1 MG; Start 11/16/18 at 09:00 Albuterol/ Ipratropium (Duoneb) 3 ml Q6 PRN HHN sob; Start 11/16/18 at 09:00 Linagliptin (Tradjenta) 5 mg DAILY GTB Last administered on 11/30/18 09:25; Admin Dose 5 MG; Start 11/16/18 at 09:00 Lorazepam (Ativan) 1 mg HS PRN GTB ANXIETY Last administered on 11/29/18 20:41; Admin Dose 1 MG; Start 11/16/18 at 09:00 Quetiapine Fumarate (Seroquel) 25 mg BID GTB Last administered on 11/30/18 09:18; Admin Dose 25 MG; Start 11/16/18 at 09:00 Senna (Senokot) 1 tab BID PO Last administered on 11/30/18 09:19; Admin Dose 1 TAB; Start 11/16/18 at 09:00 Valproate Sodium (Depakene Liquid Cup) 250 mg Q8 PO Last administered on 11/30/18 14:42; Admin Dose 250 MG; Start 11/16/18 at 14:00 Sodium Chloride (NS) -To prime the dialy... DIRECTED FOR HD PRN IV SBP<90; Start 11/16/18 at 15:00 Hydralazine HCl (Apresoline) 10 mg Q4H PRN IV ELEVATED BLOOD PRESSURE Last administered on 11/17/18 14:57; Admin Dose 10 MG; Start 11/17/18 at 10:30 Acetaminophen/ Hydrocodone Bitart ([place] (5/325)) 1 tab Q3H PRN PO MODERATE PAIN LEVEL 4-6 Last administered on 11/27/18 08:12; Admin Dose 1 TAB; Start 11/17/18 at 14:30 Hydralazine HCl (Apresoline) 25 mg Q8 PO Last administered on 11/30/18 14:42; Admin Dose 25 MG; Start 11/18/18 at 06:00 Metoprolol Tartrate (Lopressor) 50 mg BID GTB Last administered on 11/30/18 09:18; Admin Dose 50 MG; Start 11/18/18 at 09:00 Albumin Human 50 ml @ 100 mls/hr WITH DIALYSIS PRN IV SBP<90 Last administered on 11/22/18 11:25; Admin Dose 100 MLS/HR; Start 11/18/18 at 14:30 Morphine Sulfate (morphine) 6 mg Q4H PRN PO SEVERE PAIN LEVEL 7-10 Last administered on 11/27/18 00:35; Admin Dose 6 MG; Start 11/18/18 at 23:00 Docusate Sodium (Colace Liquid Cup) 100 mg DAILY GTB Last administered on 11/30/18 09:17; Admin Dose 100 MG; Start 11/19/18 at 09:30 Guaifenesin/ Dextromethorphan (Robitussin Dm Liquid Cup) 5 ml Q4H PRN PO cough Last administered on 11/23/18 21:50; Admin Dose 5 ML; Start 11/20/18 at 14:00 Amlodipine Besylate (Norvasc) 2.5 mg BID GTB Last administered on 11/30/18 09:18; Admin Dose 2.5 MG; Start 11/22/18 at 21:00 Vancomycin HCl (Vanco Iv Per Pharmacy) VANCOMYCIN PER PHARMACY PER PROTOCOL XX ; Start 11/23/18 at 12:00 Meropenem/Sodium Chloride 50 ml @ 100 mls/hr Q24H IVPB Last administered on 11/30/18 12:57; Admin Dose 100 MLS/HR; Start 11/24/18 at 13:00 Multivit/Ca Carb/ B Cmplx/FA/Prenat (Kianna-Roque) 1 tab DAILY GTB Last administered on 11/30/18at 09:18; Admin Dose 1 TAB; Start 11/24/18 at 09:00 Lansoprazole (Prevacid) 30 mg DAILY GTB Last administered on 11/30/18 09:18; Admin Dose 30 MG; Start 11/26/18 at 09:00 Ferrous Sulfate (Ferrous Sulfate (Ec)) 325 mg BID PO Last administered on 11/30/18 09:19; Admin Dose 325 MG; Start 11/25/18 at 21:00 Acetaminophen (Tylenol Supp) 650 mg Q4H PRN [place] MILD PAIN(1-3) OR TEMP>38C Last administered on 11/26/18at 08:32; Admin Dose 650 MG; Start 11/26/18 at 08:30 Vancomycin/Sodium Chloride 250 ml @ 125 mls/hr Q72H IVPB Last administered on 11/30/18at 15:41; Admin Dose 125 MLS/HR; Start 11/27/18 at 16:00 Caspofungin 50 mg/ Sodium Chloride 250 ml @ 250 mls/hr Q24H IVPB Last administered on 11/30/18at 11:54; Admin Dose 250 MLS/HR; Start 11/28/18 at 11:00 Allergies: Coded Allergies: No Known Allergy (Unverified , 10/16/18) Past Surgical History Hip replacement surgery due to recent hip fracture, and G-tube placement, permacath Social History Smoking Status: Never smoker Exam/Review of Systems Vital Signs Vitals Vital Signs Date Temp Pulse Resp B/P (MAP) Pulse Ox O2 O2 Flow FiO2 Time Delivery Rate 11/30/18 98.2 84 18 158/67 96 Room Air 14:43 (97) 11/29/18 2.0 13:20 11/27/18 21 00:43 Intake and Output 11/29/18 11/29/18 11/30/18 1515:00 23:00 07:00 IntakeIntake Total 830 ml 350 ml OutputOutput Total 200 ml BalanceBalance 630 ml 350 ml Exam Gen: Awake, inappropriate responses, pt saying incoherent words Neck: LIJ PC site c/d/i, no erythema, no edema, no tenderness Heart: Reg Lungs: Clear anteriorly Extr: bilateral hands bandaged, c/d/i, mild edema. B/l feet warm, no overt wounds, 1+ palp DP pulses bilaterally Medications Medications Current Medications IV Flush (NS 3 ml) 3 ml PER PROTOCOL IV ; Start 11/16/18 at 09:00 Ondansetron HCl (Zofran Inj) 4 mg Q6H PRN IV NAUSEA AND/OR VOMITING; Start 11/16/18 at 09:00 Acetaminophen (Tylenol Tab) 650 mg Q6H PRN PO PAIN LEVEL 1-3 OR FEVER Last administered on 11/29/18 20:41; Admin Dose 650 MG; Start 11/16/18 at 09:00 Docusate Sodium (Colace) 100 mg Q12H PRN PO CONSTIPATION; Start 11/16/18 at 09:00 Magnesium Hydroxide (Milk Of Mag) 30 ml DAILY PRN PO CONSTIPATION; Start 11/16/18 at 09:00 Folic Acid (Folic Acid) 1 mg DAILY GTB Last administered on 11/30/18 09:17; Admin Dose 1 MG; Start 11/16/18 at 09:00 Albuterol/ Ipratropium (Duoneb) 3 ml Q6 PRN HHN sob; Start 11/16/18 at 09:00 Linagliptin (Tradjenta) 5 mg DAILY GTB Last administered on 11/30/18 09:25; Admin Dose 5 MG; Start 11/16/18 at 09:00 Lorazepam (Ativan) 1 mg HS PRN GTB ANXIETY Last administered on 11/29/18 20:41; Admin Dose 1 MG; Start 11/16/18 at 09:00 Quetiapine Fumarate (Seroquel) 25 mg BID GTB Last administered on 11/30/18 09:18; Admin Dose 25 MG; Start 11/16/18 at 09:00 Senna (Senokot) 1 tab BID PO Last administered on 11/30/18 09:19; Admin Dose 1 TAB; Start 11/16/18 at 09:00 Valproate Sodium (Depakene Liquid Cup) 250 mg Q8 PO Last administered on 11/30/18at 14:42; Admin Dose 250 MG; Start 11/16/18 at 14:00 Sodium Chloride (NS) -To prime the dialy... DIRECTED FOR HD PRN IV SBP<90; Start 11/16/18 at 15:00 Hydralazine HCl (Apresoline) 10 mg Q4H PRN IV ELEVATED BLOOD PRESSURE Last administered on 11/17/18 14:57; Admin Dose 10 MG; Start 11/17/18 at 10:30 Acetaminophen/ Hydrocodone Bitart ([place] (5/325)) 1 tab Q3H PRN PO MODERATE PAIN LEVEL 4-6 Last administered on 11/27/18 08:12; Admin Dose 1 TAB; Start 11/17/18 at 14:30 Hydralazine HCl (Apresoline) 25 mg Q8 PO Last administered on 11/30/18 14:42; Admin Dose 25 MG; Start 11/18/18 at 06:00 Metoprolol Tartrate (Lopressor) 50 mg BID GTB Last administered on 11/30/18 09:18; Admin Dose 50 MG; Start 11/18/18 at 09:00 Albumin Human 50 ml @ 100 mls/hr WITH DIALYSIS PRN IV SBP<90 Last administered on 11/22/18 11:25; Admin Dose 100 MLS/HR; Start 11/18/18 at 14:30 Morphine Sulfate (morphine) 6 mg Q4H PRN PO SEVERE PAIN LEVEL 7-10 Last administered on 11/27/18 00:35; Admin Dose 6 MG; Start 11/18/18 at 23:00 Docusate Sodium (Colace Liquid Cup) 100 mg DAILY GTB Last administered on 11/30/18 09:17; Admin Dose 100 MG; Start 11/19/18 at 09:30 Guaifenesin/ Dextromethorphan (Robitussin Dm Liquid Cup) 5 ml Q4H PRN PO cough Last administered on 11/23/18 21:50; Admin Dose 5 ML; Start 11/20/18 at 14:00 Amlodipine Besylate (Norvasc) 2.5 mg BID GTB Last administered on 11/30/18 09:18; Admin Dose 2.5 MG; Start 11/22/18 at 21:00 Vancomycin HCl (Vanco Iv Per Pharmacy) VANCOMYCIN PER PHARMACY PER PROTOCOL XX ; Start 11/23/18 at 12:00 Meropenem/Sodium Chloride 50 ml @ 100 mls/hr Q24H IVPB Last administered on 11/30/18 12:57; Admin Dose 100 MLS/HR; Start 11/24/18 at 13:00 Multivit/Ca Carb/ B Cmplx/FA/Prenat (Kianna-Roque) 1 tab DAILY GTB Last admini stered on 11/30/18 09:18; Admin Dose 1 TAB; Start 11/24/18 at 09:00 Lansoprazole (Prevacid) 30 mg DAILY GTB Last administered on 11/30/18 09:18; Admin Dose 30 MG; Start 11/26/18 at 09:00 Ferrous Sulfate (Ferrous Sulfate (Ec)) 325 mg BID PO Last administered on 11/30/18 09:19; Admin Dose 325 MG; Start 11/25/18 at 21:00 Acetaminophen (Tylenol Supp) 650 mg Q4H PRN [place] MILD PAIN(1-3) OR TEMP>38C Last administered on 11/26/18 08:32; Admin Dose 650 MG; Start 11/26/18 at 08:30 Vancomycin/Sodium Chloride 250 ml @ 125 mls/hr Q72H IVPB Last administered on 11/30/18 15:41; Admin Dose 125 MLS/HR; Start 11/27/18 at 16:00 Caspofungin 50 mg/ Sodium Chloride 250 ml @ 250 mls/hr Q24H IVPB Last adm inistered on 11/30/18 11:54; Admin Dose 250 MLS/HR; Start 11/28/18 at 11:00 JAMMIE MARQUEZ MD Nov 30, 2018 16:00
--- NOTE | 2018-11-30 18:39 | PN ---
DATE: 11/30/2018 SUBJECTIVE: The patient unfortunately has fungemia as blood cultures confirmed Dominique glabrata. Th e patient is on the appropriate antifungal treatment with caspofungin. Unfortunately, due to this, s he will most likely have to have her PermCath removed. A vascular surgeon was consulted for further recommendations. Repeat cultures were ordered as well. The patient appears to be more alert and les s agitated than usual. PHYSICAL EXAMINATION:: VITAL SIGNS: Temperature 98.2, pulse 84, respirations 18, blood pressure 150/67, saturation 95% on r oom air. GENERAL: No acute distress. The patient is pale. CARDIOVASCULAR: S1, S2, regular rate. LUNGS: Clear. Left IJ Perm-A-Cath. ABDOMEN: Soft, nontender. G-tube in place. EXTREMITIES: No clubbing, cyanosis, or edema. LABORATORY DATA: No new labs today. Last glucose of 131 and 123. Repeat blood culture dated 2018 are negative. Chest x-ray 11/29/2018, does show worsening mild left upper lobe infiltrate. No other significant change. MEDICATIONS: 1. Caspofungin dose per pharmacy. 2. Vancomycin dose per pharmacy. 3. Tylenol ____dose per pharmacy. 4. Kianna-Roque. 5. Norvasc. 6. Robitussin. 7. Colace. 8. Morphine. 9. Lopressor. 10. Hydralazine. 11. [place]. 12. Depakote. 13. Zofran. 14. Tylenol. 15. Colace. 16. Milk of magnesia. 17. Folic acid. 18. DuoNeb. 19. Tradjenta. 20. Ativan. 21. Seroquel. 22. Senna. ASSESSMENT AND PLAN: This is an unfortunate 83-year-old [place] female with history of end-stage re nal disease, dementia, psychiatric disorder, COPD, who presented with right hand severe hematoma stat us post incision and drainage. She developed also pneumonia, now fungemia. 1. Respiratory. Stable. Chest x-ray is slightly worsening of infiltrate. Monitor chest x-ray. 2. Cardiovascular. Stable. Blood pressure is normal. 3. End-stage renal disease, dialysis 3 times a week. 4. Fungemia. Continue caspofungin. Further decision per ID and vascular regarding removal of PermC ath. 5. Dysphagia. Continue G-tube feeding. 6. Diabetes mellitus. Glucose level of control in the low 100s. 7. Anemia. Transfuse p.r.n. Epogen per nephrology. 8. Clinically stable. Remains with 1:1 sitter due to danger to self. We will follow vascular recom mendations and discharge planning to follow. Dictated By: DYLON HULL/MADAN Conf#: [id number] DID#: [id number]
--- NOTE | 2018-11-30 18:43 | CONS ---
Assessment/Plan Assessment/Plan Assessment/Plan Hospital Course 83 yo female in ESRD on HD presents for melena and anemia and also found to have edematous Rt hand/wrist 1. UGIB manifested through melena and anemia -no melena noted or GI bleeding noted by nursing staff 2. Anemia, acute on chronic, acute likely due to blood loss in rt hand -Hgb 6.8->10.6->9.2->8.3 -No evidence of active GI bleeding, consider etiology of blood loss anemia to be from hematoma in hand -s/p 2 units with HD on 11/17 -Fe wnl, TIBC low, Ferritin, folate, b12 high, FOB neg 3. ESRD on HD -receiving HD currently 4. Hematoma of Rt hand and wrist -I and D drainage by Dr. Dean 11/17 5. Dysphagia -on tube feeds and pureed nectar for oral gratification -Tube feeds boluses QID 6. DM2 7. HTN 8. H/O diastolic dysfunction heart failure 9. S/P EGD 11/18 10. Moderate gastritis with no bleeding noted. 11. Hospital acquired pneumonia- concern for aspiration 12. Yeast in blood cx 13. Dementia Gastric biopsy results: Stomach, biopsy: -- Antral and oxyntic mucosa showing minimal plasma cell infiltration and small focus of intestinal metaplasia. -- No Helicobacter pylori is identified in Giemsa stain (positive control concurrently reviewed). -- No evidence of dysplasia or malignancy. Plan: Cont abx Continue present care Monitor HH closely and for active GI bleeding PPI once a day Result Diagram: 11/29/18 0556 11/29/18 0556 Results 24hrs Laboratory Tests Test 11/30/18 09:22 Bedside Glucose 131 Consultation Date/Type/Reason Admit Date/Time Nov 16, 2018 at 05:51 Initial Consult Date 11/16/18 Requesting Provider: JOSE RAUL ANDREWS MD 24 HR Interval Summary Constitutional: disoriented Exam/Review of Systems Vital Signs Vitals Vital Signs Date Temp Pulse Resp B/P (MAP) Pulse Ox O2 O2 Flow FiO2 Time Delivery Rate 11/30/18 98.2 84 18 158/67 96 Room Air 14:43 (97) 11/29/18 2.0 13:20 11/27/18 21 00:43 Intake and Output 11/29/18 11/29/18 11/30/18 1515:00 23:00 07:00 IntakeIntake Total 830 ml 350 ml OutputOutput Total 200 ml BalanceBalance 630 ml 350 ml Exam Genitourinary - Female: No nl adnexae, No nl external genitalia, No CMT, No CVA tenderness, No uterus, No other Medications Medications Current Medications IV Flush (NS 3 ml) 3 ml PER PROTOCOL IV ; Start 11/16/18 at 09:00 Ondansetron HCl (Zofran Inj) 4 mg Q6H PRN IV NAUSEA AND/OR VOMITING; Start 11/16/18 at 09:00 Acetaminophen (Tylenol Tab) 650 mg Q6H PRN PO PAIN LEVEL 1-3 OR FEVER Last administered on 11/29/18 20:41; Admin Dose 650 MG; Start 11/16/18 at 09:00 Docusate Sodium (Colace) 100 mg Q12H PRN PO CONSTIPATION; Start 11/16/18 at 09:00 Magnesium Hydroxide (Milk Of Mag) 30 ml DAILY PRN PO CONSTIPATION; Start 11/16/18 at 09:00 Folic Acid (Folic Acid) 1 mg DAILY GTB Last administered on 11/30/18 09:17; Admin Dose 1 MG; Start 11/16/18 at 09:00 Albuterol/ Ipratropium (Duoneb) 3 ml Q6 PRN HHN sob; Start 11/16/18 at 09:00 Linagliptin (Tradjenta) 5 mg DAILY GTB Last administered on 11/30/18 09:25; Admin Dose 5 MG; Start 11/16/18 at 09:00 Lorazepam (Ativan) 1 mg HS PRN GTB ANXIETY Last administered on 11/29/18 20:41; Admin Dose 1 MG; Start 11/16/18 at 09:00 Quetiapine Fumarate (Seroquel) 25 mg BID GTB Last administered on 11/30/18 09:18; Admin Dose 25 MG; Start 11/16/18 at 09:00 Senna (Senokot) 1 tab BID PO Last administered on 11/30/18 09:19; Admin Dose 1 TAB; Start 11/16/18 at 09:00 Valproate Sodium (Depakene Liquid Cup) 250 mg Q8 PO Last administered on 11/30/18 14:42; Admin Dose 250 MG; Start 11/16/18 at 14:00 Sodium Chloride (NS) -To prime the dialy... DIRECTED FOR HD PRN IV SBP<90; Start 11/16/18 at 15:00 Hydralazine HCl (Apresoline) 10 mg Q4H PRN IV ELEVATED BLOOD PRESSURE Last administered on 11/17/18at 14:57; Admin Dose 10 MG; Start 11/17/18 at 10:30 Acetaminophen/ Hydrocodone Bitart ([place] (5/325)) 1 tab Q3H PRN PO MODERATE PAIN LEVEL 4-6 Last administered on 11/27/18 08:12; Admin Dose 1 TAB; Start 11/17/18 at 14:30 Hydralazine HCl (Apresoline) 25 mg Q8 PO Last administered on 11/30/18 14:42; Admin Dose 25 MG; Start 11/18/18 at 06:00 Metoprolol Tartrate (Lopressor) 50 mg BID GTB Last administered on 11/30/18 09:18; Admin Dose 50 MG; Start 11/18/18 at 09:00 Albumin Human 50 ml @ 100 mls/hr WITH DIALYSIS PRN IV SBP<90 Last administered on 11/22/18 11:25; Admin Dose 100 MLS/HR; Start 11/18/18 at 14:30 Morphine Sulfate (morphine) 6 mg Q4H PRN PO SEVERE PAIN LEVEL 7-10 Last administered on 11/27/18 00:35; Admin Dose 6 MG; Start 11/18/18 at 23:00 Docusate Sodium (Colace Liquid Cup) 100 mg DAILY GTB Last administered on 11/30/18 09:17; Admin Dose 100 MG; Start 11/19/18 at 09:30 Guaifenesin/ Dextromethorphan (Robitussin Dm Liquid Cup) 5 ml Q4H PRN PO cough Last administered on 11/23/18 21:50; Admin Dose 5 ML; Start 11/20/18 at 14:00 Amlodipine Besylate (Norvasc) 2.5 mg BID GTB Last administered on 11/30/18 09:18; Admin Dose 2.5 MG; Start 11/22/18 at 21:00 Vancomycin HCl (Vanco Iv Per Pharmacy) VANCOMYCIN PER PHARMACY PER PROTOCOL XX ; Start 11/23/18 at 12:00 Meropenem/Sodium Chloride 50 ml @ 100 mls/hr Q24H IVPB Last administered on 11/30/18at 12:57; Admin Dose 100 MLS/HR; Start 11/24/18 at 13:00 Multivit/Ca Carb/ B Cmplx/FA/Prenat ([place]-Roque) 1 tab DAILY GTB Last administered on 11/30/18at 09:18; Admin Dose 1 TAB; Start 11/24/18 at 09:00 Lansoprazole (Prevacid) 30 mg DAILY GTB Last administered on 11/30/18at 09:18; Admin Dose 30 MG; Start 11/26/18 at 09:00 Ferrous Sulfate (Ferrous Sulfate (Ec)) 325 mg BID PO Last administered on 11/30/18at 09:19; Admin Dose 325 MG; Start 11/25/18 at 21:00 Acetaminophen (Tylenol Supp) 650 mg Q4H PRN [place] MILD PAIN(1-3) OR TEMP>38C Last administered on 11/26/18at 08:32; Admin Dose 650 MG; Start 11/26/18 at 08:30 Vancomycin/Sodium Chloride 250 ml @ 125 mls/hr Q72H IVPB Last administered on 11/30/18at 15:41; Admin Dose 125 MLS/HR; Start 11/27/18 at 16:00 Caspofungin 50 mg/ Sodium Chloride 250 ml @ 250 mls/hr Q24H IVPB Last administered on 11/30/18at 11:54; Admin Dose 250 MLS/HR; Start 11/28/18 at 11:00 Date/Time of Note Date/Time of Note DATE: 11/30/18 TIME: 18:42 CHRISS WELCH MD Nov 30, 2018 18:43
[2018-11-30 20:00] VITALS: BP 178/84; PULSE 93; RESP 18
[2018-11-30] MEDS: ACETAMINOPHEN 325 MG TAB PO PRN (21:03)
[2018-11-30] MEDS: LORAZEPAM 1 MG TAB GTB PRN (21:03)
--- NOTE | 2018-11-30 21:15 | CONS ---
Date/Time of Note Date/Time of Note DATE: 11/30/18 TIME: 21:15 Consult Date/Type/Reason Admit Date/Time Nov 16, 2018 at 05:51 Initial Consult Date 11/16/18 Type of Consultation: cv Requesting Provider: DYLON WALLS MD Subjective Cardiology follow up note Sl DW/ Staff pt is less agitated now no report of any chest pain or pressure or palpitations but pt is a very poor historian s/p I/D 11/17 EGD 11.18.18 O: General: Elderly frail male in no acute distress HEENT: NC/AT. pupils are equal. round. NECK: NO JVD. no stridor. CV: RRR. systolic murmur; no gallop or rubs. PULM: no wheezing or rhonchi. GI: SOFT, NT, ND, no rebound or guarding Extremity: Right upper extremity is covered with dressing neuro: awake Psych: calm now rectal: deferred CXR 11/22: 1. Left lung interstitial opacities may reflect edema or pneumonia. Findings ar e new when compared to the prior examination. 2. Mild cardiomegaly and aortic atherosclerosis. 3. Left chest Perma-Cath with tip in the lower SVC. review of old chart shows ECHO done Oct 2018: Normal left ventricular systolic function. Normal left ventricular cavity size. Moderate concentric left ventricular hypertrophy. Ejection fraction is visually estimated at 65 %. Abnormal Diastolic Function. Mitral valve leaflets appear moderately thickened. Moderate mitral annular calcification. Trace mitral regurgitation. Aortic valve not well visualized. No hemodynamically significant aortic stenosis by doppler. Aortic sclerosis without significant stenosis. Aortic cusps appear mildly calcified. Mild to moderate aortic valve regurgitation. Estimated peak PA systolic pressure 40 mmHg. Tricuspid valve appears moderately thickened. There is mild tricuspid regurgitation. Objective Vital Signs Date Temp Pulse Resp B/P (MAP) Pulse Ox O2 O2 Flow FiO2 Time Delivery Rate 11/30/18 98.3 93 18 178/84 95 20:00 (115) 11/30/18 Room Air 14:43 11/29/18 2.0 13:20 11/27/18 21 00:43 Intake and Output 11/29/18 11/29/18 11/30/18 1515:00 23:00 07:00 IntakeIntake Total 830 ml 350 ml OutputOutput Total 200 ml BalanceBalance 630 ml 350 ml Results/Medications Result Diagram: 11/29/18 0556 11/29/18 0556 Results 24 hrs Laboratory Tests Test 11/30/18 09:22 Bedside Glucose 131 Medications Current Medications IV Flush (NS 3 ml) 3 ml PER PROTOCOL IV ; Start 11/16/18 at 09:00 Ondansetron HCl (Zofran Inj) 4 mg Q6H PRN IV NAUSEA AND/OR VOMITING; Start 11/16/18 at 09:00 Acetaminophen (Tylenol Tab) 650 mg Q6H PRN PO PAIN LEVEL 1-3 OR FEVER Last administered on 11/29/18 20:41; Admin Dose 650 MG; Start 11/16/18 at 09:00 Docusate Sodium (Colace) 100 mg Q12H PRN PO CONSTIPATION; Start 11/16/18 at 09:00 Magnesium Hydroxide (Milk Of Mag) 30 ml DAILY PRN PO CONSTIPATION; Start 11/16/18 at 09:00 Folic Acid (Folic Acid) 1 mg DAILY GTB Last administered on 11/30/18 09:17; Admin Dose 1 MG; Start 11/16/18 at 09:00 Albuterol/ Ipratropium (Duoneb) 3 ml Q6 PRN HHN sob; Start 11/16/18 at 09:00 Linagliptin (Tradjenta) 5 mg DAILY GTB Last administered on 11/30/18 09:25; Admin Dose 5 MG; Start 11/16/18 at 09:00 Lorazepam (Ativan) 1 mg HS PRN GTB ANXIETY Last administered on 11/29/18 20:41; Admin Dose 1 MG; Start 11/16/18 at 09:00 Quetiapine Fumarate (Seroquel) 25 mg BID GTB Last administered on 11/30/18 09:18; Admin Dose 25 MG; Start 11/16/18 at 09:00 Senna (Senokot) 1 tab BID PO Last administered on 11/30/18 09:19; Admin Dose 1 TAB; Start 11/16/18 at 09:00 Valproate Sodium (Depakene Liquid Cup) 250 mg Q8 PO Last administered on 11/30/18 14:42; Admin Dose 250 MG; Start 11/16/18 at 14:00 Sodium Chloride (NS) -To prime the dialy... DIRECTED FOR HD PRN IV SBP<90; Start 11/16/18 at 15:00 Hydralazine HCl (Apresoline) 10 mg Q4H PRN IV ELEVATED BLOOD PRESSURE Last administered on 11/17/18 14:57; Admin Dose 10 MG; Start 11/17/18 at 10:30 Acetaminophen/ Hydrocodone Bitart ([place] (5/325)) 1 tab Q3H PRN PO MODERATE PAIN LEVEL 4-6 Last administered on 11/27/18 08:12; Admin Dose 1 TAB; Start 11/17/18 at 14:30 Hydralazine HCl (Apresoline) 25 mg Q8 PO Last administered on 11/30/18 14:42; Admin Dose 25 MG; Start 11/18/18 at 06:00 Metoprolol Tartrate (Lopressor) 50 mg BID GTB Last administered on 11/30/18 09:18; Admin Dose 50 MG; Start 11/18/18 at 09:00 Albumin Human 50 ml @ 100 mls/hr WITH DIALYSIS PRN IV SBP<90 Last administered on 11/22/18 11:25; Admin Dose 100 MLS/HR; Start 11/18/18 at 14:30 Morphine Sulfate (morphine) 6 mg Q4H PRN PO SEVERE PAIN LEVEL 7-10 Last administered on 11/27/18 00:35; Admin Dose 6 MG; Start 11/18/18 at 23:00 Docusate Sodium (Colace Liquid Cup) 100 mg DAILY GTB Last administered on 11/30/18 09:17; Admin Dose 100 MG; Start 11/19/18 at 09:30 Guaifenesin/ Dextromethorphan (Robitussin Dm Liquid Cup) 5 ml Q4H PRN PO cough Last administered on 11/23/18 21:50; Admin Dose 5 ML; Start 11/20/18 at 14:00 Amlodipine Besylate (Norvasc) 2.5 mg BID GTB Last administered on 11/30/18 09:18; Admin Dose 2.5 MG; Start 11/22/18 at 21:00 Vancomycin HCl (Vanco Iv Per Pharmacy) VANCOMYCIN PER PHARMACY PER PROTOCOL XX ; Start 11/23/18 at 12:00 Meropenem/Sodium Chloride 50 ml @ 100 mls/hr Q24H IVPB Last administered on 1/22/19at 12:57; Admin Dose 100 MLS/HR; Start 11/24/18 at 13:00 Multivit/Ca Carb/ B Cmplx/FA/Prenat ([place]ianna-Roque) 1 tab DAILY GTB Last administered on 11/30/18at 09:18; Admin Dose 1 TAB; Start 11/24/18 at 09:00 Lansoprazole (Prevacid) 30 mg DAILY GTB Last administered on 11/30/18 09:18; Admin Dose 30 MG; Start 11/26/18 at 09:00 Ferrous Sulfate (Ferrous Sulfate (Ec)) 325 mg BID PO Last administered on 09:19; Admin Dose 325 MG; Start 11/25/18 at 21:00 Acetaminophen (Tylenol Supp) 650 mg Q4H PRN [place] MILD PAIN(1-3) OR TEMP>38C Last administered on 11/26/18at 08:32; Admin Dose 650 MG; Start 11/26/18 at 08:30 Vancomycin/Sodium Chloride 250 ml @ 125 mls/hr Q72H IVPB Last administered on 11/30/18at 15:41; Admin Dose 125 MLS/HR; Start 11/27/18 at 16:00 Caspofungin 50 mg/ Sodium Chloride 250 ml @ 250 mls/hr Q24H IVPB Last administered on 11/30/18at 11:54; Admin Dose 250 MLS/HR; Start 11/28/18 at 11:00 Assessment/Plan Chief Complaint/Hosp Course Cardiovascular preop evaluation Right hand hematoma: Status post IND now Renal failure on dialysis Hypertension Dementia Anemia Possible GI bleed: Status post EGD AI Recommendations: transfusion with HD prn Dialysis as per renal team Neuro workup and treatment as per internal medicine Thank you for his referral. We will continue to follow along with you CHRISTEN ESCOBEDO MD [facility] CHRISTEN ESCOBEDO MD Nov 30, 2018 21:15
[2018-11-30] MEDS: hydrALAzine 20 MG INJ IV PRN (23:50)
[2018-11-30 23:54] VITALS: BP 183/78; PULSE 81
[2018-12-01] VITALS (19 sets, daily range): BP systolic 137–177; BP diastolic 45–86; PULSE 70–88; RESP 18
[2018-12-01] MEDS: VALPROIC ACID LIQUID CUP 250 MG/5 ML CUP PO SCH ×3 (05:40→21:20)
[2018-12-01] MEDS: DOCUSATE SODIUM 10 MG/ML (10ML CUP) GTB SCH (08:22)
[2018-12-01] MEDS: QUETIAPINE 25 MG TAB GTB SCH ×2 (08:23→21:19)
[2018-12-01] MEDS: LINAGLIPTIN 5 MG TABLET GTB SCH (08:23)
[2018-12-01] MEDS: FERROUS SULFATE (EC) 325 MG TAB PO SCH ×2 (08:23→21:19)
[2018-12-01] MEDS: SENNA TAB PO SCH ×2 (08:23→21:19)
[2018-12-01] MEDS: LANSOPRAZOLE 30 MG CAP GTB SCH (08:23)
[2018-12-01] MEDS: FOLIC ACID 1 MG TAB GTB SCH (08:23)
[2018-12-01] MEDS: MULTIVIT/CA CARB/B CMPLX/FA TAB GTB SCH (08:23)
[2018-12-01] MEDS: AMLODIPINE 2.5 MG TAB GTB SCH ×2 (08:30→21:19)
[2018-12-01] MEDS: METOPROLOL 50 MG TAB GTB SCH ×2 (08:30→21:20)
--- NOTE | 2018-12-01 09:03 | CONS ---
Date/Time of Note Date/Time of Note DATE: 12/01/18 TIME: 09:03 Consult Date/Type/Reason Admit Date/Time Nov 16, 2018 at 05:51 Initial Consult Date 11/16/18 Type of Consultation: cv Requesting Provider: DYLON WALLS MD Subjective Cardiology follow up note Sl DW/ Staff pt is less agitated now no report of any chest pain or pressure or palpitations but pt is a very poor historian s/p I/D 11/17 EGD 11.18.18 O: General: Elderly frail male in no acute distress HEENT: NC/AT. pupils are equal. round. NECK: NO JVD. no stridor. CV: RRR. systolic murmur; no gallop or rubs. PULM: no wheezing or rhonchi. GI: SOFT, NT, ND, no rebound or guarding Extremity: Right upper extremity is covered with dressing neuro: awake Psych: calm now rectal: deferred CXR 11/22: 1. Left lung interstitial opacities may reflect edema or pneumonia. Findings ar e new when compared to the prior examination. 2. Mild cardiomegaly and aortic atherosclerosis. 3. Left chest Perma-Cath with tip in the lower SVC. review of old chart shows ECHO done Oct 2018: Normal left ventricular systolic function. Normal left ventricular cavity size. Moderate concentric left ventricular hypertrophy. Ejection fraction is visually estimated at 65 %. Abnormal Diastolic Function. Mitral valve leaflets appear moderately thickened. Moderate mitral annular calcification. Trace mitral regurgitation. Aortic valve not well visualized. No hemodynamically significant aortic stenosis by doppler. Aortic sclerosis without significant stenosis. Aortic cusps appear mildly calcified. Mild to moderate aortic valve regurgitation. Estimated peak PA systolic pressure 40 mmHg. Tricuspid valve appears moderately thickened. There is mild tricuspid regurgitation. Objective Vital Signs Date Temp Pulse Resp B/P (MAP) Pulse Ox O2 O2 Flow FiO2 Time Delivery Rate 12/01/18 98.3 82 18 155/79 95 02:00 (104) 11/30/18 Room Air 14:43 11/29/18 2.0 13:20 Intake and Output 11/30/18 11/30/18 12/01/18 1515:00 23:00 07:00 IntakeIntake Total 950 ml 850 ml BalanceBalance 950 ml 850 ml Results/Medications Result Diagram: 11/29/18 0556 11/29/18 0556 Results 24 hrs Laboratory Tests Test 11/30/18 09:22 12/01/18 08:21 12/01/18 08:39 Bedside Glucose 131 140 White Blood Count Pending Red Blood Count Pending Hemoglobin Pending Hematocrit Pending Mean Corpuscular Volume Pending Mean Corpuscular Hemoglobin Pending Mean Corpuscular Hemoglobin Concent Pending Red Cell Distribution Width Pending Platelet Count Pending Mean Platelet Volume Pending Medications Current Medications IV Flush (NS 3 ml) 3 ml PER PROTOCOL IV ; Start 11/16/18 at 09:00 Ondansetron HCl (Zofran Inj) 4 mg Q6H PRN IV NAUSEA AND/OR VOMITING; Start 11/16/18 at 09:00 Acetaminophen (Tylenol Tab) 650 mg Q6H PRN PO PAIN LEVEL 1-3 OR FEVER Last administered on 11/30/18 21:03; Admin Dose 650 MG; Start 11/16/18 at 09:00 Docusate Sodium (Colace) 100 mg Q12H PRN PO CONSTIPATION; Start 11/16/18 at 09:00 Magnesium Hydroxide (Milk Of Mag) 30 ml DAILY PRN PO CONSTIPATION; Start 11/16/18 at 09:00 Folic Acid (Folic Acid) 1 mg DAILY GTB Last administered on 12/01/18 08:23; Admin Dose 1 MG; Start 11/16/18 at 09:00 Albuterol/ Ipratropium (Duoneb) 3 ml Q6 PRN HHN sob; Start 11/16/18 at 09:00 Linagliptin (Tradjenta) 5 mg DAILY GTB Last administered on 12/01/18 08:23; Admin Dose 5 MG; Start 11/16/18 at 09:00 Lorazepam (Ativan) 1 mg HS PRN GTB ANXIETY Last administered on 11/30/18 21:03; Admin Dose 1 MG; Start 11/16/18 at 09:00 Quetiapine Fumarate (Seroquel) 25 mg BID GTB Last administered on 12/01/18 08:23; Admin Dose 25 MG; Start 11/16/18 at 09:00 Senna (Senokot) 1 tab BID PO Last administered on 12/01/18 08:23; Admin Dose 1 TAB; Start 11/16/18 at 09:00 Valproate Sodium (Depakene Liquid Cup) 250 mg Q8 PO Last administered on 12/01/18 05:40; Admin Dose 250 MG; Start 11/16/18 at 14:00 Sodium Chloride (NS) -To prime the dialy... DIRECTED FOR HD PRN IV SBP<90; Start 11/16/18 at 15:00 Hydralazine HCl (Apresoline) 10 mg Q4H PRN IV ELEVATED BLOOD PRESSURE Last administered on 11/30/18 23:50; Admin Dose 10 MG; Start 11/17/18 at 10:30 Acetaminophen/ Hydrocodone Bitart ([place] (5/325)) 1 tab Q3H PRN PO MODERATE PAIN LEVEL 4-6 Last administered on 11/27/18 08:12; Admin Dose 1 TAB; Start 11/17/18 at 14:30 Hydralazine HCl (Apresoline) 25 mg Q8 PO Last administered on 11/30/18 21:01; Admin Dose 25 MG; Start 11/18/18 at 06:00 Metoprolol Tartrate (Lopressor) 50 mg BID GTB Last administered on 12/01/18 08:30; Admin Dose 50 MG; Start 11/18/18 at 09:00 Albumin Human 50 ml @ 100 mls/hr WITH DIALYSIS PRN IV SBP<90 Last administered on 11/22/18 11:25; Admin Dose 100 MLS/HR; Start 11/18/18 at 14:30 Morphine Sulfate (morphine) 6 mg Q4H PRN PO SEVERE PAIN LEVEL 7-10 Last administered on 11/27/18 00:35; Admin Dose 6 MG; Start 11/18/18 at 23:00 Docusate Sodium (Colace Liquid Cup) 100 mg DAILY GTB Last administered on 12/01/18 08:22; Admin Dose 100 MG; Start 11/19/18 at 09:30 Guaifenesin/ Dextromethorphan (Robitussin Dm Liquid Cup) 5 ml Q4H PRN PO cough Last administered on 11/23/18 21:50; Admin Dose 5 ML; Start 11/20/18 at 14:00 Amlodipine Besylate (Norvasc) 2.5 mg BID GTB Last administered on 12/01/18 08 :30; Admin Dose 2.5 MG; Start 11/22/18 at 21:00 Vancomycin HCl (Vanco Iv Per Pharmacy) VANCOMYCIN PER PHARMACY PER PROTOCOL XX ; Start 11/23/18 at 12:00 Meropenem/Sodium Chloride 50 ml @ 100 mls/hr Q24H IVPB Last administered on 11/30/18 12:57; Admin Dose 100 MLS/HR; Start 11/24/18 at 13:00 Multivit/Ca Carb/ B Cmplx/FA/Prenat (Kianna-Roque) 1 tab DAILY GTB Last administered on 12/01/18 08:23; Admin Dose 1 TAB; Start 11/24/18 at 09:00 Lansoprazole (Prevacid) 30 mg DAILY GTB Last administered on 12/01/18 08:23; Admin Dose 30 MG; Start 11/26/18 at 09:00 Ferrous Sulfate (Ferrous Sulfate (Ec)) 325 mg BID PO Last administered on 12/01/18 08:23; Admin Dose 325 MG; Start 11/25/18 at 21:00 Acetaminophen (Tylenol Supp) 650 mg Q4H PRN [place] MILD PAIN(1-3) OR TEMP>38C Last administered on 11/26/18 08:32; Admin Dose 650 MG; Start 11/26/18 at 08:30 Vancomycin/Sodium Chloride 250 ml @ 125 mls/hr Q72H IVPB Last administered on 11/30/18 15:41; Admin Dose 125 MLS/HR; Start 11/27/18 at 16:00 Caspofungin 50 mg/ Sodium Chloride 250 ml @ 250 mls/hr Q24H IVPB Last administered on 11/30/18 11:54; Admin Dose 250 MLS/HR; Start 11/28/18 at 11:00 Assessment/Plan Chief Complaint/Hosp Course Cardiovascular preop evaluation Right hand hematoma: Status post IND now Renal failure on dialysis Hypertension Dementia Anemia Possible GI bleed: Status post EGD AI Recommendations: transfusion with HD prn Dialysis as per renal team Neuro workup and treatment as per internal medicine Thank you for his referral. We will continue to follow along with you CHRISTEN ESCOBEDO MD [facility] CHRISTEN ESCOBEDO MD Dec 01, 2018 09:03
--- NOTE | 2018-12-01 10:58 | CONS ---
Assessment/Plan Assessment/Plan Hospital Course 1. Right hand swelling, likely secondary to hematoma, questionable fall. with compression s/p I and D on 11/17/18 2. Gastrointestinal bleed with melena. 3. Hypertension. 4. Diabetes. 5. End-stage renal disease on hemodialysis. 6. History of falls. 7. Vascular dementia. 8. History of sepsis with VRE. 9. Dysphagia, status post G-tube. 10. History of hip fracture. 11. Thrombocytopenia. 12. Atherosclerotic heart disease. Assessment/Plan - HD today - Permcath removal ? - CHEST X ray +Pneumonia - cw vancomycin/meropenem/caspofungin - Monitor fevers - Hold BP meds before hd - renally dose all meds Result Diagram: 12/01/18 0839 12/01/18 0839 Results 24hrs Laboratory Tests Test 12/01/18 08:21 12/01/18 08:39 Bedside Glucose 140 White Blood Count 8.8 Red Blood Count 3.38 L Hemoglobin 9.3 L Hematocrit 29.0 L Mean Corpuscular Volume 85.8 Mean Corpuscular Hemoglobin 27.5 L Mean Corpuscular Hemoglobin Concent 32.1 Red Cell Distribution Width 16.3 H Platelet Count 321 # Mean Platelet Volume 11.7 H Immature Granulocytes % 1.900 H Neutrophils % 70.1 Lymphocytes % 10.0 L Monocytes % 12.0 H Eosinophils % 5.4 Basophils % 0.6 Nucleated Red Blood Cells % 0.0 Immature Granulocytes # 0.170 H Neutrophils # 6.2 Lymphocytes # 0.9 Monocytes # 1.1 H Eosinophils # 0.5 Basophils # 0.1 Nucleated Red Blood Cells # 0.0 Sodium Level 139 Potassium Level 3.9 Chloride Level 100 Carbon Dioxide Level 29 Anion Gap 10 Blood Urea Nitrogen 54 H Creatinine 1.84 H Est Glomerular Filtrat Rate mL/min Glucose Level 146 Calcium Level 8.9 Phosphorus Level 3.3 Magnesium Level 2.6 H Consultation Date/Type/Reason Admit Date/Time Nov 16, 2018 at 05:51 Initial Consult Date 11/16/18 Type of Consult nephrology Reason for Consultation Dr Stringer Requesting Provider: DYLON WALLS MD Exam/Review of Systems Vital Signs Vitals Vital Signs Date Temp Pulse Resp B/P (MAP) Pulse Ox O2 O2 Flow FiO2 Time Delivery Rate 12/01/18 98.3 82 18 155/79 95 02:00 (104) 1/22/19 Room Air 14:43 11/29/18 2.0 13:20 Intake and Output 11/30/18 11/30/18 12/01/18 1515:00 23:00 07:00 IntakeIntake Total 950 ml 850 ml BalanceBalance 950 ml 850 ml Exam left chest Permcath Constitutional: frail Neck: supple Respiratory: diminished breath sounds Cardiovascular: regular rate and rhythm Gastrointestinal: soft, other (GT) 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: confused Medications Medications Current Medications IV Flush (NS 3 ml) 3 ml PER PROTOCOL IV ; Start 11/16/18 at 09:00 Ondansetron HCl (Zofran Inj) 4 mg Q6H PRN IV NAUSEA AND/OR VOMITING; Start 11/16/18 at 09:00 Acetaminophen (Tylenol Tab) 650 mg Q6H PRN PO PAIN LEVEL 1-3 OR FEVER Last administered on 11/30/18at 21:03; Admin Dose 650 MG; Start 11/16/18 at 09:00 Docusate Sodium (Colace) 100 mg Q12H PRN PO CONSTIPATION; Start 11/16/18 at 09:00 Magnesium Hydroxide (Milk Of Mag) 30 ml DAILY PRN PO CONSTIPATION; Start 11/16/18 at 09:00 Folic Acid (Folic Acid) 1 mg DAILY GTB Last administered on 12/01/18 08:23; Admin Dose 1 MG; Start 11/16/18 at 09:00 Albuterol/ Ipratropium (Duoneb) 3 ml Q6 PRN HHN sob; Start 11/16/18 at 09:00 Linagliptin (Tradjenta) 5 mg DAILY GTB Last administered on 12/01/18 08:23; Admin Dose 5 MG; Start 11/16/18 at 09:00 Lorazepam (Ativan) 1 mg HS PRN GTB ANXIETY Last administered on 11/30/18 21 :03; Admin Dose 1 MG; Start 11/16/18 at 09:00 Quetiapine Fumarate (Seroquel) 25 mg BID GTB Last administered on 12/01/18 08:23; Admin Dose 25 MG; Start 11/16/18 at 09:00 Senna (Senokot) 1 tab BID PO Last administered on 12/01/18 08:23; Admin Dose 1 TAB; Start 11/16/18 at 09:00 Valproate Sodium (Depakene Liquid Cup) 250 mg Q8 PO Last administered on 12/01/18 05:40; Admin Dose 250 MG; Start 11/16/18 at 14:00 Sodium Chloride (NS) -To prime the dialy... DIRECTED FOR HD PRN IV SBP<90; Start 11/16/18 at 15:00 Hydralazine HCl (Apresoline) 10 mg Q4H PRN IV ELEVATED BLOOD PRESSURE Last administered on 11/30/18 23:50; Admin Dose 10 MG; Start 11/17/18 at 10:30 Acetaminophen/ Hydrocodone Bitart ([place] (5/325)) 1 tab Q3H PRN PO MODERATE PAIN LEVEL 4-6 Last administered on 11/27/18 08:12; Admin Dose 1 TAB; Start 11/17/18 at 14:30 Hydralazine HCl (Apresoline) 25 mg Q8 PO Last administered on 11/30/18 21:01; Admin Dose 25 MG; Start 11/18/18 at 06:00 Metoprolol Tartrate (Lopressor) 50 mg BID GTB Last administered on 12/01/18 08:30; Admin Dose 50 MG; Start 11/18/18 at 09:00 Albumin Human 50 ml @ 100 mls/hr WITH DIALYSIS PRN IV SBP<90 Last administered on 11/22/18 11:25; Admin Dose 100 MLS/HR; Start 11/18/18 at 14:30 Morphine Sulfate (morphine) 6 mg Q4H PRN PO SEVERE PAIN LEVEL 7-10 Last administered on 11/27/18 00:35; Admin Dose 6 MG; Start 11/18/18 at 23:00 Docusate Sodium (Colace Liquid Cup) 100 mg DAILY GTB Last administered on 12/01/18 08:22; Admin Dose 100 MG; Start 11/19/18 at 09:30 Guaifenesin/ Dextromethorphan (Robitussin Dm Liquid Cup) 5 ml Q4H PRN PO cough Last administered on 11/23/18 21:50; Admin Dose 5 ML; Start 11/20/18 at 14:00 Amlodipine Besylate (Norvasc) 2.5 mg BID GTB Last administered on 12/01/18 08:30; Admin Dose 2.5 MG; Start 11/22/18 at 21:00 Vancomycin HCl (Vanco Iv Per Pharmacy) VANCOMYCIN PER PHARMACY PER PROTOCOL XX ; Start 11/23/18 at 12:00 Meropenem/Sodium Chloride 50 ml @ 100 mls/hr Q24H IVPB Last administered on 11/30/18at 12:57; Admin Dose 100 MLS/HR; Start 11/24/18 at 13:00 Multivit/Ca Carb/ B Cmplx/FA/Prenat ([place]na-Roque) 1 tab DAILY GTB Last administered on 12/01/18 08:23; Admin Dose 1 TAB; Start 11/24/18 at 09:00 Lansoprazole (Prevacid) 30 mg DAILY GTB Last administered on 12/01/18 08:23; Admin Dose 30 MG; Start 11/26/18 at 09:00 Ferrous Sulfate (Ferrous Sulfate (Ec)) 325 mg BID PO Last administered on 12/01/18 08:23; Admin Dose 325 MG; Start 11/25/18 at 21:00 Acetaminophen (Tylenol Supp) 650 mg Q4H PRN [place] MILD PAIN(1-3) OR TEMP>38C Last administered on 11/26/18at 08:32; Admin Dose 650 MG; Start 11/26/18 at 08:30 Vancomycin/Sodium Chloride 250 ml @ 125 mls/hr Q72H IVPB Last administered on 11/30/18at 15:41; Admin Dose 125 MLS/HR; Start 11/27/18 at 16:00 Caspofungin 50 mg/ Sodium Chloride 250 ml @ 250 mls/hr Q24H IVPB Last administered on 11/30/18at 11:54; Admin Dose 250 MLS/HR; Start 11/28/18 at 11:00 Date/Time of Note Date/Time of Note DATE: 12/01/18 TIME: 10:57 FLAVIO CLAYTON Dec 01, 2018 10:58
--- NOTE | 2018-12-01 13:56 | CONS ---
Assessment/Plan Assessment/Plan Hospital Course No acute events overnight per report, patient is in HD. Looks comfortable. Microbiology: Blood cultures growing Dominique glabrata Antimicrobials: Vancomycin, meropenem, Cancidas Chest x-ray 11/29/18: Worsening mild left upper lobe infiltrate. No other significant change. Indwelling: Left chest permacath, PEG Physical examination: Chronically ill-appearing elderly woman who is awake, confused, in no distress. Head atraumatic normocephalic. Neck is supple. Chest rise symmetrical breath sounds diminished bases. Heart: S1-S2. Abdomen soft bowel sounds present, right upper extremity Armani wrapped Assessment: 1. Sepsis with fungemia infected permacath? 2. Healthcare associated pneumonia, possibly aspiration 3. Right hand hematoma, status post I&D 11/17/18 4. Status post VRE bacteremia, status post new Pcath 5. End-stage renal disease, hemodialysis dependent 6. Dementia 7. Failure to thrive 8. Diabetes 9. Anemia Plan: Clinically unchanged, continue antibiotics, repeat bld cx with HD today, continue aspiration precautions Result Diagram: 12/01/18 0839 12/01/18 0839 Results 24hrs Laboratory Tests Test 12/01/18 08:21 12/01/18 08:39 Bedside Glucose 140 White Blood Count 8.8 Red Blood Count 3.38 L Hemoglobin 9.3 L Hematocrit 29.0 L Mean Corpuscular Volume 85.8 Mean Corpuscular Hemoglobin 27.5 L Mean Corpuscular Hemoglobin Concent 32.1 Red Cell Distribution Width 16.3 H Platelet Count 321 # Mean Platelet Volume 11.7 H Immature Granulocytes % 1.900 H Neutrophils % 70.1 Lymphocytes % 10.0 L Monocytes % 12.0 H Eosinophils % 5.4 Basophils % 0.6 Nucleated Red Blood Cells % 0.0 Immature Granulocytes # 0.170 H Neutrophils # 6.2 Lymphocytes # 0.9 Monocytes # 1.1 H Eosinophils # 0.5 Basophils # 0.1 Nucleated Red Blood Cells # 0.0 Sodium Level 139 Potassium Level 3.9 Chloride Level 100 Carbon Dioxide Level 29 Anion Gap 10 Blood Urea Nitrogen 54 H Creatinine 1.84 H Est Glomerular Filtrat Rate mL/min Glucose Level 146 Calcium Level 8.9 Phosphorus Level 3.3 Magnesium Level 2.6 H Consultation Date/Type/Reason Admit Date/Time Nov 16, 2018 at 05:51 Initial Consult Date 11/16/18 Type of Consult id Requesting Provider: DYLON WALLS MD Exam/Review of Systems Vital Signs Vitals Vital Signs Date Temp Pulse Resp B/P (MAP) Pulse Ox O2 O2 Flow FiO2 Time Delivery Rate 12/01/18 71 13:25 12/01/18 163/73 Room Air 11:00 (103) 12/01/18 98.3 18 95 02:00 11/29/18 2.0 13:20 Intake and Output 11/30/18 11/30/18 12/01/18 1515:00 23:00 07:00 IntakeIntake Total 950 ml 850 ml BalanceBalance 950 ml 850 ml Medications Medications Current Medications IV Flush (NS 3 ml) 3 ml PER PROTOCOL IV ; Start 11/16/18 at 09:00 Ondansetron HCl (Zofran Inj) 4 mg Q6H PRN IV NAUSEA AND/OR VOMITING; Start 11/16/18 at 09:00 Acetaminophen (Tylenol Tab) 650 mg Q6H PRN PO PAIN LEVEL 1-3 OR FEVER Last administered on 11/30/18at 21:03; Admin Dose 650 MG; Start 11/16/18 at 09:00 Docusate Sodium (Colace) 100 mg Q12H PRN PO CONSTIPATION; Start 11/16/18 at 09:00 Magnesium Hydroxide (Milk Of Mag) 30 ml DAILY PRN PO CONSTIPATION; Start 11/16/18 at 09:00 Folic Acid (Folic Acid) 1 mg DAILY GTB Last administered on 12/01/18at 08:23; Admin Dose 1 MG; Start 11/16/18 at 09:00 Albuterol/ Ipratropium (Duoneb) 3 ml Q6 PRN HHN sob; Start 11/16/18 at 09:00 Linagliptin (Tradjenta) 5 mg DAILY GTB Last administered on 12/01/18 08:23; Admin Dose 5 MG; Start 11/16/18 at 09:00 Lorazepam (Ativan) 1 mg HS PRN GTB ANXIETY Last administered on 11/30/18at 21:03; Admin Dose 1 MG; Start 11/16/18 at 09:00 Quetiapine Fumarate (Seroquel) 25 mg BID GTB Last administered on 12/01/18at 08:23; Admin Dose 25 MG; Start 11/16/18 at 09:00 Senna (Senokot) 1 tab BID PO Last administered on 12/01/18 08:23; Admin Dose 1 TAB; Start 11/16/18 at 09:00 Valproate Sodium (Depakene Liquid Cup) 250 mg Q8 PO Last administered on 12/01/18 05:40; Admin Dose 250 MG; Start 11/16/18 at 14:00 Sodium Chloride (NS) -To prime the dialy... DIRECTED FOR HD PRN IV SBP<90; Start 11/16/18 at 15:00 Hydralazine HCl (Apresoline) 10 mg Q4H PRN IV ELEVATED BLOOD PRESSURE Last administered on 11/30/18 23:50; Admin Dose 10 MG; Start 11/17/18 at 10:30 Acetaminophen/ Hydrocodone Bitart ([place] (5/325)) 1 tab Q3H PRN PO MODERATE PAIN LEVEL 4-6 Last administered on 11/27/18 08:12; Admin Dose 1 TAB; Start 11/17/18 at 14:30 Hydralazine HCl (Apresoline) 25 mg Q8 PO Last administered on 11/30/18 21:01; Admin Dose 25 MG; Start 11/18/18 at 06:00 Metoprolol Tartrate (Lopressor) 50 mg BID GTB Last administered on 12/01/18 08:30; Admin Dose 50 MG; Start 11/18/18 at 09:00 Albumin Human 50 ml @ 100 mls/hr WITH DIALYSIS PRN IV SBP<90 Last administered on 11/22/18 11:25; Admin Dose 100 MLS/HR; Start 11/18/18 at 14:30 Morphine Sulfate (morphine) 6 mg Q4H PRN PO SEVERE PAIN LEVEL 7-10 Last administered on 11/27/18 00:35; Admin Dose 6 MG; Start 11/18/18 at 23:00 Docusate Sodium (Colace Liquid Cup) 100 mg DAILY GTB Last administered on 12/01/18 08:22; Admin Dose 100 MG; Start 11/19/18 at 09:30 Guaifenesin/ Dextromethorphan (Robitussin Dm Liquid Cup) 5 ml Q4H PRN PO cough Last administered on 11/23/18 21:50; Admin Dose 5 ML; Start 11/20/18 at 14:00 Amlodipine Besylate (Norvasc) 2.5 mg BID GTB Last administered on 12/01/18 08:30; Admin Dose 2.5 MG; Start 11/22/18 at 21:00 Vancomycin HCl (Vanco Iv Per Pharmacy) VANCOMYCIN PER PHARMACY PER PROTOCOL XX ; Start 11/23/18 at 12:00 Meropenem/Sodium Chloride 50 ml @ 100 mls/hr Q24H IVPB Last administered on 11/30/18at 12:57; Admin Dose 100 MLS/HR; Start 11/24/18 at 13:00 Multivit/Ca Carb/ B Cmplx/FA/Prenat (Kianna-Roque) 1 tab DAILY GTB Last administered on 12/01/18 08:23; Admin Dose 1 TAB; Start 11/24/18 at 09:00 Lansoprazole (Prevacid) 30 mg DAILY GTB Last administered on 12/01/18 08:23; Admin Dose 30 MG; Start 11/26/18 at 09:00 Ferrous Sulfate (Ferrous Sulfate (Ec)) 325 mg BID PO Last administered on 12/01/18 08:23; Admin Dose 325 MG; Start 11/25/18 at 21:00 Acetaminophen (Tylenol Supp) 650 mg Q4H PRN [place] MILD PAIN(1-3) OR TEMP>38C Last administered on 11/26/18at 08:32; Admin Dose 650 MG; Start 11/26/18 at 08:30 Vancomycin/Sodium Chloride 250 ml @ 125 mls/hr Q72H IVPB Last administered on 11/30/18at 15:41; Admin Dose 125 MLS/HR; Start 11/27/18 at 16:00 Caspofungin 50 mg/ Sodium Chloride 250 ml @ 250 mls/hr Q24H IVPB Last administered on 11/30/18at 11:54; Admin Dose 250 MLS/HR; Start 11/28/18 at 11:00 Date/Time of Note Date/Time of Note DATE: 12/01/18 TIME: 13:55 PHYLICIA HOLCOMB NP Dec 01, 2018 13:56
[2018-12-01] MEDS: CASPOFUNGIN 50 MG in SOD CHLORIDE 0.9% 250 ML IVPB SCH (14:32)
[2018-12-01] MEDS: MEROPENEM 500MG/50 ML (PMX) 50 ML IVPB SCH (14:32)
[2018-12-01] MEDS: ACETAMINOPHEN 325 MG TAB PO PRN (21:20)
[2018-12-01] MEDS: LORAZEPAM 1 MG TAB GTB PRN (21:20)
--- NOTE | 2018-12-02 00:56 | PN ---
DATE: 12/01/2018 SUBJECTIVE: Patient seen, appears to be more alert, doing quite well. PHYSICAL EXAMINATION: VITAL SIGNS: Temperature 98.2, pulse 88, respirations 18, blood pressure 142/64, saturation 96%. GENERAL: The patient is in no acute distress. HEENT: Normocephalic, atraumatic. Pale. CARDIOVASCULAR: S1, S2, regular rate. LUNGS: Clear. ABDOMEN: Soft, nontender. EXTREMITIES: No clubbing, cyanosis, or edema. LABORATORY DATA: Reviewed. The patient does have yeast including Dominique glabrata in the blood. Re peat blood cultures on 11/29 are negative. White count 8.8, hemoglobin 9.3, hematocrit 29, platelet count of with normal differential. Chemistry: Sodium 139, potassium 3.9, chloride 100, bicarb jb 29, BUN is 54, creatinine 0.84, glucose 146. ASSESSMENT AND PLAN: This is an 83-year-old [place] female with history of end-stage renal disease, dementia, psychiatric disorder, COPD, who presented with right hand severe hematoma, status post inc ision and drainage. She developed also pneumonia and fungemia 1. Respiratory. Remains on IV vancomycin and Merrem for pneumonia. Follow up chest x-ray. Clinica lly, much improved. 2. Fungemia questionable Perm-A-Cath infection, responding well to the treatment and clinically doin g better. Continue Cancidas. A decision regarding removal of line per vascular and ID. 3. Gastrointestinal. Status post EGD, no active bleeding. Hemoglobin and hematocrit is stable. No need for transfusion. 4. End-stage renal disease, dialysis 3 times a week. 5. Dysphagia. Continue G-tube feeding. 6. Diabetes mellitus, controlled with glucose level in the low 100s. 7. Clinically stable. DISPOSITION: We will discuss with infectious disease. We will follow. Dictated By: DYLON HULL/MADAN Conf#: [id number] DID#: [id number]
[2018-12-02 02:08] VITALS: BP 141/78; PULSE 81; RESP 18
[2018-12-02] MEDS: VALPROIC ACID LIQUID CUP 250 MG/5 ML CUP PO SCH ×3 (05:39→22:24)
[2018-12-02 05:47] VITALS: BP 192/96
[2018-12-02 06:52] VITALS: BP 189/78; PULSE 75
[2018-12-02] MEDS: hydrALAzine 20 MG INJ IV PRN (06:53)
--- NOTE | 2018-12-02 06:53 | PN ---
DATE: 12/01/2018 Dressings were changed. The wound over the dorsal aspect of the right hand is partially covered with soft and hard scabs. No signs of any acute pyogenic process. The tendons are not exposed. There i s a possibility that with continuous wound care, the granulation may heal with the coverage. If the wound closure of the wound is not satisfactory, then possibility of skin graft by plastic surgery may have to be considered; however, for now we should continue the wound care with a followup evaluation in about a week. The dressings does not need to be changed for 1 week until the next evaluation. S he can be discharged any time from [facility]o point for further followup as an outpatient. If she is in a skilled nursing, an arrangement can be made to come to my office for weekly followup. Dictated By: CESARIO RIVERA MD IK/NTS Conf#: [id number] DID#: [id number] CC: CHRISS WELCH MD; DYLON WALLS MD;*End*
[2018-12-02 07:46] VITALS: BP 148/63; PULSE 75; RESP 16
--- NOTE | 2018-12-02 08:07 | CONS ---
Assessment/Plan Assessment/Plan Hospital Course 1. Right hand swelling, likely secondary to hematoma, questionable fall. with compression s/p I and D on 11/17/18 2. Gastrointestinal bleed with melena. 3. Hypertension. 4. Diabetes. 5. End-stage renal disease on hemodialysis. 6. History of falls. 7. Vascular dementia. 8. History of sepsis with VRE. 9. Dysphagia, status post G-tube. 10. History of hip fracture. 11. Thrombocytopenia. 12. Atherosclerotic heart disease. 13. Pneumonia left side Assessment/Plan - HD - Permacath removal ? - CHEST X ray +Pneumonia - cw vancomycin/meropenem/caspofungin - Monitor fevers - Hold BP meds before hd - renally dose all meds Result Diagram: 12/01/18 0839 12/01/18 0839 Results 24hrs Laboratory Tests Test 12/01/18 08:21 12/01/18 08:39 Bedside Glucose 140 White Blood Count 8.8 Red Blood Count 3.38 L Hemoglobin 9.3 L Hematocrit 29.0 L Mean Corpuscular Volume 85.8 Mean Corpuscular Hemoglobin 27.5 L Mean Corpuscular Hemoglobin Concent 32.1 Red Cell Distribution Width 16.3 H Platelet Count 321 # Mean Platelet Volume 11.7 H Immature Granulocytes % 1.900 H Neutrophils % 70.1 Lymphocytes % 10.0 L Monocytes % 12.0 H Eosinophils % 5.4 Basophils % 0.6 Nucleated Red Blood Cells % 0.0 Immature Granulocytes # 0.170 H Neutrophils # 6.2 Lymphocytes # 0.9 Monocytes # 1.1 H Eosinophils # 0.5 Basophils # 0.1 Nucleated Red Blood Cells # 0.0 Sodium Level 139 Potassium Level 3.9 Chloride Level 100 Carbon Dioxide Level 29 Anion Gap 10 Blood Urea Nitrogen 54 H Creatinine 1.84 H Est Glomerular Filtrat Rate mL/min Glucose Level 146 Calcium Level 8.9 Phosphorus Level 3.3 Magnesium Level 2.6 H Consultation Date/Type/Reason Admit Date/Time Nov 16, 2018 at 05:51 Initial Consult Date 11/16/18 Type of Consult nephrology Requesting Provider: DYLON WALLS MD 24 HR Interval Summary Constitutional: disoriented Exam/Review of Systems Vital Signs Vitals Vital Signs Date Temp Pulse Resp B/P (MAP) Pulse Ox O2 O2 Flow FiO2 Time Delivery Rate 12/02/18 98.1 75 16 148/63 95 Room Air 07:46 (91) 11/29/18 2.0 13:20 Intake and Output 12/01/18 12/01/18 12/02/18 1515:00 23:00 07:00 IntakeIntake Total 600 ml OutputOutput Total 2600 ml BalanceBalance -2600 ml 600 ml Exam left chest Perm cath Constitutional: frail Neck: supple Respiratory: clear to auscultation Cardiovascular: regular rate and rhythm Gastrointestinal: soft, other (G tube) Musculoskeletal: muscle weakness, other (right arm with wound) 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: confused Medications Medications Current Medications IV Flush (NS 3 ml) 3 ml PER PROTOCOL IV ; Start 11/16/18 at 09:00 Ondansetron HCl (Zofran Inj) 4 mg Q6H PRN IV NAUSEA AND/OR VOMITING; Start 11/16/18 at 09:00 Acetaminophen (Tylenol Tab) 650 mg Q6H PRN PO PAIN LEVEL 1-3 OR FEVER Last administered on 12/01/18 21:20; Admin Dose 650 MG; Start 11/16/18 at 09:00 Docusate Sodium (Colace) 100 mg Q12H PRN PO CONSTIPATION; Start 11/16/18 at 09:00 Magnesium Hydroxide (Milk Of Mag) 30 ml DAILY PRN PO CONSTIPATION; Start 11/16/18 at 09:00 Folic Acid (Folic Acid) 1 mg DAILY GTB Last administered on 12/01/18at 08:23; Admin Dose 1 MG; Start 11/16/18 at 09:00 Albuterol/ Ipratropium (Duoneb) 3 ml Q6 PRN HHN sob; Start 11/16/18 at 09:00 Linagliptin (Tradjenta) 5 mg DAILY GTB Last administered on 12/01/18at 08:23; Admin Dose 5 MG; Start 11/16/18 at 09:00 Lorazepam (Ativan) 1 mg HS PRN GTB ANXIETY Last administered on 12/01/18at 21:20; Admin Dose 1 MG; Start 11/16/18 at 09:00 Quetiapine Fumarate (Seroquel) 25 mg BID GTB Last administered on 12/01/18 21:19; Admin Dose 25 MG; Start 11/16/18 at 09:00 Senna (Senokot) 1 tab BID PO Last administered on 12/01/18 21:19; Admin Dose 1 TAB; Start 11/16/18 at 09:00 Valproate Sodium (Depakene Liquid Cup) 250 mg Q8 PO Last administered on 12/02/18 05:39; Admin Dose 250 MG; Start 11/16/18 at 14:00 Sodium Chloride (NS) -To prime the dialy... DIRECTED FOR HD PRN IV SBP<90; Start 11/16/18 at 15:00 Hydralazine HCl (Apresoline) 10 mg Q4H PRN IV ELEVATED BLOOD PRESSURE Last administered on 12/02/18 06:53; Admin Dose 10 MG; Start 11/17/18 at 10:30 Acetaminophen/ Hydrocodone Bitart ([place] (5/325)) 1 tab Q3H PRN PO MODERATE PAIN LEVEL 4-6 Last administered on 11/27/18 08:12; Admin Dose 1 TAB; Start 11/17/18 at 14:30 Hydralazine HCl (Apresoline) 25 mg Q8 PO Last administered on 12/02/18 05:40; Admin Dose 25 MG; Start 11/18/18 at 06:00 Metoprolol Tartrate (Lopressor) 50 mg BID GTB Last administered on 12/01/18 21:20; Admin Dose 50 MG; Start 11/18/18 at 09:00 Albumin Human 50 ml @ 100 mls/hr WITH DIALYSIS PRN IV SBP<90 Last administered on 11/22/18 11:25; Admin Dose 100 MLS/HR; Start 11/18/18 at 14:30 Morphine Sulfate (morphine) 6 mg Q4H PRN PO SEVERE PAIN LEVEL 7-10 Last administered on 11/27/18 00:35; Admin Dose 6 MG; Start 11/18/18 at 23:00 Docusate Sodium (Colace Liquid Cup) 100 mg DAILY GTB Last administered on 12/01/18 08:22; Admin Dose 100 MG; Start 11/19/18 at 09:30 Guaifenesin/ Dextromethorphan (Robitussin Dm Liquid Cup) 5 ml Q4H PRN PO cough Last administered on 11/23/18 21:50; Admin Dose 5 ML; Start 11/20/18 at 14:00 Amlodipine Besylate (Norvasc) 2.5 mg BID GTB Last administered on 12/01/18 21:19; Admin Dose 2.5 MG; Start 11/22/18 at 21:00 Vancomycin HCl (Vanco Iv Per Pharmacy) VANCOMYCIN PER PHARMACY PER PROTOCOL XX ; Start 11/23/18 at 12:00 Meropenem/Sodium Chloride 50 ml @ 100 mls/hr Q24H IVPB Last administered on 12/01/18 14:32; Admin Dose 100 MLS/HR; Start 11/24/18 at 13:00 Multivit/Ca Carb/ B Cmplx/FA/Prenat (Kianna-Roque) 1 tab DAILY GTB Last administered on 12/01/18 08:23; Admin Dose 1 TAB; Start 11/24/18 at 09:00 Lansoprazole (Prevacid) 30 mg DAILY GTB Last administered on 12/01/18 08:23; Admin Dose 30 MG; Start 11/26/18 at 09:00 Ferrous Sulfate (Ferrous Sulfate (Ec)) 325 mg BID PO Last administered on 12/01/18 21:19; Admin Dose 325 MG; Start 11/25/18 at 21:00 Acetaminophen (Tylenol Supp) 650 mg Q4H PRN [place] MILD PAIN(1-3) OR TEMP>38C Last administered on 11/26/18 08:32; Admin Dose 650 MG; Start 11/26/18 at 08:30 Vancomycin/Sodium Chloride 250 ml @ 125 mls/hr Q72H IVPB Last administered on 11/30/18at 15:41; Admin Dose 125 MLS/HR; Start 11/27/18 at 16:00 Caspofungin 50 mg/ Sodium Chloride 250 ml @ 250 mls/hr Q24H IVPB Last administered on 12/01/18 14:32; Admin Dose 250 MLS/HR; Start 11/28/18 at 11:00 Date/Time of Note Date/Time of Note DATE: 12/02/18 TIME: 08:06 FLAVIO CLAYTON Dec 02, 2018 08:07
[2018-12-02] MEDS: SENNA TAB PO SCH ×2 (08:10→21:27)
[2018-12-02] MEDS: MULTIVIT/CA CARB/B CMPLX/FA TAB GTB SCH (08:10)
[2018-12-02] MEDS: LANSOPRAZOLE 30 MG CAP GTB SCH (08:10)
[2018-12-02] MEDS: DOCUSATE SODIUM 10 MG/ML (10ML CUP) GTB SCH (08:10)
[2018-12-02] MEDS: QUETIAPINE 25 MG TAB GTB SCH ×2 (08:11→21:27)
[2018-12-02] MEDS: LINAGLIPTIN 5 MG TABLET GTB SCH (08:11)
[2018-12-02] MEDS: FERROUS SULFATE (EC) 325 MG TAB PO SCH ×2 (08:11→21:27)
[2018-12-02] MEDS: METOPROLOL 50 MG TAB GTB SCH ×2 (08:11→21:27)
[2018-12-02] MEDS: FOLIC ACID 1 MG TAB GTB SCH (08:11)
[2018-12-02] MEDS: AMLODIPINE 2.5 MG TAB GTB SCH ×2 (08:11→21:27)
--- NOTE | 2018-12-02 09:26 | CONS ---
Date/Time of Note Date/Time of Note DATE: 12/02/18 TIME: 09:26 Consult Date/Type/Reason Admit Date/Time Nov 16, 2018 at 05:51 Initial Consult Date 11/16/18 Type of Consultation: cv Requesting Provider: DYLON WALLS MD Subjective Cardiology follow up note Sl DW/ Staff pt is less agitated now no report of any chest pain or pressure or palpitations but pt is a very poor historian s/p I/D 11/17 EGD 11.18.18 O: General: Elderly frail male in no acute distress HEENT: NC/AT. pupils are equal. round. NECK: NO JVD. no stridor. CV: RRR. systolic murmur; no gallop or rubs. PULM: no wheezing or rhonchi. GI: SOFT, NT, ND, no rebound or guarding Extremity: Right upper extremity is covered with dressing neuro: awake Psych: calm now rectal: deferred CXR 11/22: 1. Left lung interstitial opacities may reflect edema or pneumonia. Findings ar e new when compared to the prior examination. 2. Mild cardiomegaly and aortic atherosclerosis. 3. Left chest Perma-Cath with tip in the lower SVC. review of old chart shows ECHO done Oct 2018: Normal left ventricular systolic function. Normal left ventricular cavity size. Moderate concentric left ventricular hypertrophy. Ejection fraction is visually estimated at 65 %. Abnormal Diastolic Function. Mitral valve leaflets appear moderately thickened. Moderate mitral annular calcification. Trace mitral regurgitation. Aortic valve not well visualized. No hemodynamically significant aortic stenosis by doppler. Aortic sclerosis without significant stenosis. Aortic cusps appear mildly calcified. Mild to moderate aortic valve regurgitation. Estimated peak PA systolic pressure 40 mmHg. Tricuspid valve appears moderately thickened. There is mild tricuspid regurgitation. Objective Vital Signs Date Temp Pulse Resp B/P (MAP) Pulse Ox O2 O2 Flow FiO2 Time Delivery Rate 12/02/18 98.1 75 16 148/63 95 Room Air 07:46 (91) 11/29/18 2.0 13:20 Intake and Output 12/01/18 12/01/18 12/02/18 1515:00 23:00 07:00 IntakeIntake Total 600 ml OutputOutput Total 2600 ml BalanceBalance -2600 ml 600 ml Results/Medications Result Diagram: 12/01/18 0839 12/01/18 0839 Results 24 hrs Laboratory Tests Test 12/02/18 08:09 Bedside Glucose 116 Medications Current Medications IV Flush (NS 3 ml) 3 ml PER PROTOCOL IV ; Start 11/16/18 at 09:00 Ondansetron HCl (Zofran Inj) 4 mg Q6H PRN IV NAUSEA AND/OR VOMITING; Start 11/16/18 at 09:00 Acetaminophen (Tylenol Tab) 650 mg Q6H PRN PO PAIN LEVEL 1-3 OR FEVER Last administered on 12/01/18 21:20; Admin Dose 650 MG; Start 11/16/18 at 09:00 Docusate Sodium (Colace) 100 mg Q12H PRN PO CONSTIPATION; Start 11/16/18 at 09:00 Magnesium Hydroxide (Milk Of Mag) 30 ml DAILY PRN PO CONSTIPATION; Start 11/16/18 at 09:00 Folic Acid (Folic Acid) 1 mg DAILY GTB Last administered on 12/02/18 08:11; Admin Dose 1 MG; Start 11/16/18 at 09:00 Albuterol/ Ipratropium (Duoneb) 3 ml Q6 PRN HHN sob; Start 11/16/18 at 09:00 Linagliptin (Tradjenta) 5 mg DAILY GTB Last administered on 12/02/18 08:11; Admin Dose 5 MG; Start 11/16/18 at 09:00 Lorazepam (Ativan) 1 mg HS PRN GTB ANXIETY Last administered on 12/01/18 21:20; Admin Dose 1 MG; Start 11/16/18 at 09:00 Quetiapine Fumarate (Seroquel) 25 mg BID GTB Last administered on 12/02/18 08:11; Admin Dose 25 MG; Start 11/16/18 at 09:00 Senna (Senokot) 1 tab BID PO Last administered on 12/02/18 08:10; Admin Dose 1 TAB; Start 11/16/18 at 09:00 Valproate Sodium (Depakene Liquid Cup) 250 mg Q8 PO Last administered on 12/02/18 05:39; Admin Dose 250 MG; Start 11/16/18 at 14:00 Sodium Chloride (NS) -To prime the dialy... DIRECTED FOR HD PRN IV SBP<90; Start 11/16/18 at 15:00 Hydralazine HCl (Apresoline) 10 mg Q4H PRN IV ELEVATED BLOOD PRESSURE Last administered on 12/02/18 06:53; Admin Dose 10 MG; Start 11/17/18 at 10:30 Acetaminophen/ Hydrocodone Bitart ([place] (5/325)) 1 tab Q3H PRN PO MODERATE P AIN LEVEL 4-6 Last administered on 11/27/18 08:12; Admin Dose 1 TAB; Start 11/17/18 at 14:30 Hydralazine HCl (Apresoline) 25 mg Q8 PO Last administered on 12/02/18 05:40; Admin Dose 25 MG; Start 11/18/18 at 06:00 Metoprolol Tartrate (Lopressor) 50 mg BID GTB Last administered on 12/02/18 08:11; Admin Dose 50 MG; Start 11/18/18 at 09:00 Albumin Human 50 ml @ 100 mls/hr WITH DIALYSIS PRN IV SBP<90 Last administered on 11/22/18 11:25; Admin Dose 100 MLS/HR; Start 11/18/18 at 14:30 Morphine Sulfate (morphine) 6 mg Q4H PRN PO SEVERE PAIN LEVEL 7-10 Last administered on 11/27/18 00:35; Admin Dose 6 MG; Start 11/18/18 at 23:00 Docusate Sodium (Colace Liquid Cup) 100 mg DAILY GTB Last administered on 12/02/18 08:10; Admin Dose 100 MG; Start 11/19/18 at 09:30 Guaifenesin/ Dextromethorphan (Robitussin Dm Liquid Cup) 5 ml Q4H PRN PO cough Last administered on 11/23/18at 21:50; Admin Dose 5 ML; Start 11/20/18 at 14:00 Amlodipine Besylate (Norvasc) 2.5 mg BID GTB Last administered on 12/02/18 08:11; Admin Dose 2.5 MG; Start 11/22/18 at 21:00 Vancomycin HCl (Vanco Iv Per Pharmacy) VANCOMYCIN PER PHARMACY PER PROTOCOL XX ; Start 11/23/18 at 12:00 Meropenem/Sodium Chloride 50 ml @ 100 mls/hr Q24H IVPB Last administered on 12/01/18 14:32; Admin Dose 100 MLS/HR; Start 11/24/18 at 13:00 Multivit/Ca Carb/ B Cmplx/FA/Prenat (Kianna-Roque) 1 tab DAILY GTB Last administered on 12/02/18 08:10; Admin Dose 1 TAB; Start 11/24/18 at 09:00 Lansoprazole (Prevacid) 30 mg DAILY GTB Last administered on 12/02/18 08:10; Admin Dose 30 MG; Start 11/26/18 at 09:00 Ferrous Sulfate (Ferrous Sulfate (Ec)) 325 mg BID PO Last administered on 12/02/18 08:11; Admin Dose 325 MG; Start 11/25/18 at 21:00 Acetaminophen (Tylenol Supp) 650 mg Q4H PRN [place] MILD PAIN(1-3) OR TEMP>38C Last administered on 11/26/18 08:32; Admin Dose 650 MG; Start 11/26/18 at 08:30 Vancomycin/Sodium Chloride 250 ml @ 125 mls/hr Q72H IVPB Last administered on 11/30/18 15:41; Admin Dose 125 MLS/HR; Start 11/27/18 at 16:00 Caspofungin 50 mg/ Sodium Chloride 250 ml @ 250 mls/hr Q24H IVPB Last administered on 12/01/18 14:32; Admin Dose 250 MLS/HR; Start 11/28/18 at 11:00 Assessment/Plan Chief Complaint/Hosp Course Cardiovascular preop evaluation Right hand hematoma: Status post IND now Renal failure on dialysis Hypertension Dementia Anemia Possible GI bleed: Status post EGD AI Recommendations: transfusion with HD prn Dialysis as per renal team Neuro workup and treatment as per internal medicine Thank you for his referral. We will continue to follow along with you CHRISTEN ESCOBEDO MD [facility] CHRISTEN ESCOBEDO MD Dec 02, 2018 09:26
--- NOTE | 2018-12-02 10:11 | CONS ---
Assessment/Plan Assessment/Plan Hospital Course 83 yo female in ESRD on HD presents for melena and anemia and also found to have edematous Rt hand/wrist 1. UGIB manifested through melena and anemia -no melena noted or GI bleeding noted by nursing staff 2. Anemia, acute on chronic, acute likely due to blood loss in rt hand -Hgb 6.8->10.6->9.2->8.3 -No evidence of active GI bleeding, consider etiology of blood loss anemia to be from hematoma in hand -s/p 2 units with HD on 11/17 -Fe wnl, TIBC low, Ferritin, folate, b12 high, FOB neg 3. ESRD on HD -receiving HD currently 4. Hematoma of Rt hand and wrist -I and D drainage by Dr. Dean 11/17 5. Dysphagia -on tube feeds and pureed nectar for oral gratification -Tube feeds boluses QID 6. DM2 7. HTN 8. H/O diastolic dysfunction heart failure 9. S/P EGD 11/18 10. Moderate gastritis with no bleeding noted. 11. Hospital acquired pneumonia- concern for aspiration 12. Yeast in blood cx Gastric biopsy results: Stomach, biopsy: -- Antral and oxyntic mucosa showing minimal plasma cell infiltration and small focus of intestinal metaplasia. -- No Helicobacter pylori is identified in Giemsa stain (positive control concurrently reviewed). -- No evidence of dysplasia or malignancy. Plan: Cont abx Continue present care Monitor HH closely and for active GI bleeding PPI BID Pt examined and plan of care discussed with Dr. Baird Result Diagram: 12/01/18 0839 12/01/18 0839 Results 24hrs Laboratory Tests Test 12/02/18 08:09 Bedside Glucose 116 Consultation Date/Type/Reason Admit Date/Time Nov 16, 2018 at 05:51 Initial Consult Date 11/16/18 Requesting Provider: DYLON WALLS MD 24 HR Interval Summary Free Text/Dictation BM yesterday, no melena or hematochezia endorsed to RN. Exam/Review of Systems Vital Signs Vitals Vital Signs Date Temp Pulse Resp B/P (MAP) Pulse Ox O2 O2 Flow FiO2 Time Delivery Rate 12/02/18 98.1 75 16 148/63 95 Room Air 07:46 (91) 11/29/18 2.0 13:20 Intake and Output 12/01/18 12/01/1819 1515:00 23:00 07:00 IntakeIntake Total 600 ml OutputOutput Total 2600 ml BalanceBalance -2600 ml 600 ml Exam Constitutional: alert Head: normocephalic Gastrointestinal: soft, non-tender, other ( g tube site clean and dry) 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: confused Medications Medications Current Medications IV Flush (NS 3 ml) 3 ml PER PROTOCOL IV ; Start 11/16/18 at 09:00 Ondansetron HCl (Zofran Inj) 4 mg Q6H PRN IV NAUSEA AND/OR VOMITING; Start 11/16/18 at 09:00 Acetaminophen (Tylenol Tab) 650 mg Q6H PRN PO PAIN LEVEL 1-3 OR FEVER Last administered on 12/01/18 21:20; Admin Dose 650 MG; Start 11/16/18 at 09:00 Docusate Sodium (Colace) 100 mg Q12H PRN PO CONSTIPATION; Start 11/16/18 at 09:00 Magnesium Hydroxide (Milk Of Mag) 30 ml DAILY PRN PO CONSTIPATION; Start 11/16/18 at 09:00 Folic Acid (Folic Acid) 1 mg DAILY GTB Last administered on 12/02/18 08:11; Admin Dose 1 MG; Start 11/16/18 at 09:00 Albuterol/ Ipratropium (Duoneb) 3 ml Q6 PRN HHN sob; Start 11/16/18 at 09:00 Linagliptin (Tradjenta) 5 mg DAILY GTB Last administered on 12/02/18 08:11; Admin Dose 5 MG; Start 11/16/18 at 09:00 Lorazepam (Ativan) 1 mg HS PRN GTB ANXIETY Last administered on 12/01/18 21:20; Admin Dose 1 MG; Start 11/16/18 at 09:00 Quetiapine Fumarate (Seroquel) 25 mg BID GTB Last administered on 12/02/18 08:11; Admin Dose 25 MG; Start 11/16/18 at 09:00 Senna (Senokot) 1 tab BID PO Last administered on 12/02/18 08:10; Admin Dose 1 TAB; Start 11/16/18 at 09:00 Valproate Sodium (Depakene Liquid Cup) 250 mg Q8 PO Last administered on 1/24/19at 05:39; Admin Dose 250 MG; Start 11/16/18 at 14:00 Sodium Chloride (NS) -To prime the dialy... DIRECTED FOR HD PRN IV SBP<90; Start 11/16/18 at 15:00 Hydralazine HCl (Apresoline) 10 mg Q4H PRN IV ELEVATED BLOOD PRESSURE Last administered on 12/02/18at 06:53; Admin Dose 10 MG; Start 11/17/18 at 10:30 Acetaminophen/ Hydrocodone Bitart ([place] (5/325)) 1 tab Q3H PRN PO MODERATE PAIN LEVEL 4-6 Last administered on 11/27/18 08:12; Admin Dose 1 TAB; Start 11/17/18 at 14:30 Hydralazine HCl (Apresoline) 25 mg Q8 PO Last administered on 12/02/18at 05:40; Admin Dose 25 MG; Start 11/18/18 at 06:00 Metoprolol Tartrate (Lopressor) 50 mg BID GTB Last administered on 12/02/18 08:11; Admin Dose 50 MG; Start 11/18/18 at 09:00 Albumin Human 50 ml @ 100 mls/hr WITH DIALYSIS PRN IV SBP<90 Last administered on 11/22/18at 11:25; Admin Dose 100 MLS/HR; Start 11/18/18 at 14:30 Morphine Sulfate (morphine) 6 mg Q4H PRN PO SEVERE PAIN LEVEL 7-10 Last administered on 11/27/18 00:35; Admin Dose 6 MG; Start 11/18/18 at 23:00 Docusate Sodium (Colace Liquid Cup) 100 mg DAILY GTB Last administered on 12/02/18 08:10; Admin Dose 100 MG; Start 11/19/18 at 09:30 Guaifenesin/ Dextromethorphan (Robitussin Dm Liquid Cup) 5 ml Q4H PRN PO cough Last administered on 11/23/18at 21:50; Admin Dose 5 ML; Start 11/20/18 at 14:00 Amlodipine Besylate (Norvasc) 2.5 mg BID GTB Last administered on 12/02/18 08: 11; Admin Dose 2.5 MG; Start 11/22/18 at 21:00 Vancomycin HCl (Vanco Iv Per Pharmacy) VANCOMYCIN PER PHARMACY PER PROTOCOL XX ; Start 11/23/18 at 12:00 Meropenem/Sodium Chloride 50 ml @ 100 mls/hr Q24H IVPB Last administered on 12/01/18 14:32; Admin Dose 100 MLS/HR; Start 11/24/18 at 13:00 Multivit/Ca Carb/ B Cmplx/FA/Prenat (Kianna-Roque) 1 tab DAILY GTB Last administered on 12/02/18 08:10; Admin Dose 1 TAB; Start 11/24/18 at 09:00 Lansoprazole (Prevacid) 30 mg DAILY GTB Last administered on 12/02/18 08:10; Admin Dose 30 MG; Start 11/26/18 at 09:00 Ferrous Sulfate (Ferrous Sulfate (Ec)) 325 mg BID PO Last administered on 12/02/18 08:11; Admin Dose 325 MG; Start 11/25/18 at 21:00 Acetaminophen (Tylenol Supp) 650 mg Q4H PRN [place] MILD PAIN(1-3) OR TEMP>38C Last administered on 11/26/18 08:32; Admin Dose 650 MG; Start 11/26/18 at 08:30 Vancomycin/Sodium Chloride 250 ml @ 125 mls/hr Q72H IVPB Last administered on 11/30/18at 15:41; Admin Dose 125 MLS/HR; Start 11/27/18 at 16:00 Caspofungin 50 mg/ Sodium Chloride 250 ml @ 250 mls/hr Q24H IVPB Last administered on 12/01/18 14:32; Admin Dose 250 MLS/HR; Start 11/28/18 at 11:00 Date/Time of Note Date/Time of Note DATE: 12/02/18 TIME: 10:10 TONY VENCES Dec 02, 2018 10:11
[2018-12-02] MEDS: CASPOFUNGIN 50 MG in SOD CHLORIDE 0.9% 250 ML IVPB SCH (10:38)
[2018-12-02] MEDS: MEROPENEM 500MG/50 ML (PMX) 50 ML IVPB SCH (12:38)
--- NOTE | 2018-12-02 15:42 | CONS ---
Assessment/Plan Assessment/Plan Hospital Course (Demo Recall) No acute events overnight per report, patient is sleeping, looks comfortable, no fevers Microbiology: Blood cultures grew Dominique glabrata, repeat blood cultures from hemodialysis catheter negative Antimicrobials: Vancomycin, meropenem, Cancidas Chest x-ray 11/29/18: Worsening mild left upper lobe infiltrate. No other significant change. Indwelling: Left chest permacath, PEG Physical examination: Chronically ill-appearing elderly woman who is awake, confused, in no distress. Head atraumatic normocephalic. Neck is supple. Chest rise symmetrical breath sounds diminished bases. Heart: S1-S2. Abdomen soft bowel sounds present, right upper extremity Armani wrapped Assessment: 1. Sepsis with fungemia, repeat blood cultures negative 2. Healthcare associated pneumonia, possibly aspiration 3. Right hand hematoma, status post I&D 11/17/18 4. Status post VRE bacteremia, status post new Pcath 5. End-stage renal disease, hemodialysis dependent 6. Dementia 7. Failure to thrive 8. Diabetes 9. Anemia Plan: Clinically unchanged, stable, blood cultures sent from hemodialysis ca theter negative, continue antibiotics for couple more days, continue Cancidas for 2 more weeks Consultation Date/Type/Reason Admit Date/Time Nov 16, 2018 at 05:51 Initial Consult Date 11/16/18 Type of Consult id Requesting Provider: DYLON WALLS MD Date/Time of Note DATE: 12/02/18 TIME: 15:40 Exam/Review of Systems Exam Vitals Vital Signs Date Temp Pulse Resp B/P (MAP) Pulse Ox O2 O2 Flow FiO2 Time Delivery Rate 12/02/18 98.1 75 16 148/63 95 Room Air 07:46 (91) 11/29/18 2.0 13:20 Intake and Output 12/01/18 12/01/18 12/02/18 1515:00 23:00 07:00 IntakeIntake Total 600 ml OutputOutput Total 2600 ml BalanceBalance -2600 ml 600 ml Results Result Diagram: 12/01/18 0839 12/01/18 0839 Results 24hrs Laboratory Tests Test 12/02/18 08:09 Bedside Glucose 116 PHYLICIA HOLCOMB NP Dec 02, 2018 15:42
[2018-12-02 19:27] VITALS: BP 157/72; PULSE 89; RESP 20
[2018-12-03] VITALS (20 sets, daily range): BP systolic 96–173; BP diastolic 46–101; PULSE 75–117; RESP 16–20
--- NOTE | 2018-12-03 00:57 | PN ---
DATE: 12/02/2018 HISTORY OF PRESENT ILLNESS: The patient is seen lying in bed comfortably, less confused, recognizes me, and overall doing better. Repeat blood cultures are negative. His blood cultures on 11/24/2018 did show Dominique glabrata fungemia. Clinically stable. Continue Cancidas for 2 more weeks, so we wi ll work with community case manager to see if we can discharge the patient on IV Cancidas. PHYSICAL EXAMINATION: VITAL SIGNS: Blood pressure 157/72, pulse 89, respirations 20, temperature 98.5, saturation 94%. GENERAL: No acute distress. HEENT: Normocephalic, atraumatic. The patient is pale. CARDIOVASCULAR: S1 and S2, regular rate. LUNGS: Clear. ABDOMEN: Soft, nontender. EXTREMITIES: No clubbing, cyanosis, or edema. IMAGING: Chest x-ray on 11/29 did show worsening of mild left upper lobe infiltrate. MEDICATIONS: All reviewed, include: 1. Caspofungin. 2. Vancomycin. 3. Prevacid. 4. Tylenol. 5. Ferrous sulfate. 6. Merrem. 7. Renal vitamin. 8. Norvasc. 9. Colace. 10. Morphine. 11. Albumin. 12. Lopressor. 13. Hydralazine. 14. [place]. ASSESSMENT AND PLAN: This is an 83-year-old [place] female with history of end-stage renal disease, dementia, psychiatric disorder, chronic obstructive pulmonary disease, , and right hand severe hematoma, status post I and D. Also, developed pneumonia and fungemia. 1. Respiratory. The patient with pneumonia. Follow up chest x-ray. Plan for 2 more days of vancom ycin and Merrem. Clinically doing much better. 2. Fungemia. Needs 2 more weeks of IV Cancidas. We will discuss with case management regarding haider ilability at the SNF. 3. End-stage renal disease. Dialysis 3 times a week. 4. Dysphagia. Continue G-tube feeding. 5. Diabetes mellitus. Glucose level in the 100s. 6. 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 The patient with 1:1 sitter and close monitoring. 7. Anemia. H and H stable. Currently, no need for transfusion. Epogen per Nephrology. Clinically doing much better. We will follow. Discharge planning soon. Dictated By: DYLON HULL/MADAN Conf#: [id number] [facility]#: [id number]
[2018-12-03] MEDS: VALPROIC ACID LIQUID CUP 250 MG/5 ML CUP PO SCH ×3 (06:41→22:35)
--- NOTE | 2018-12-03 07:53 | CONS ---
Assessment/Plan Assessment/Plan Hospital Course (Demo Recall) -Hgb 6.8->10.6->9.2->8.3 -No evidence of active GI bleeding, consider etiology of blood loss anemia to be from hematoma in hand -s/p 2 units with HD on 11/17 -Fe wnl, TIBC low, Ferritin, folate, b12 high, FOB neg 3. ESRD on HD -receiving HD currently 4. Hematoma of Rt hand and wrist -I and D drainage by Dr. Dean 11/17 5. Dysphagia -on tube feeds and pureed nectar for oral gratification -Tube feeds boluses QID 6. DM2 7. HTN 8. H/O diastolic dysfunction heart failure 9. S/P EGD 11/18 10. Moderate gastritis with no bleeding noted. 11. Hospital acquired pneumonia- concern for aspiration 12. Yeast in blood cx Gastric biopsy results: Stomach, biopsy: -- Antral and oxyntic mucosa showing minimal plasma cell infiltration and small focus of intestinal metaplasia. -- No Helicobacter pylori is identified in Giemsa stain (positive control concurrently reviewed). -- No evidence of dysplasia or malignancy. Plan: Continue present care Monitor HH closely and for active GI bleeding Pt examined and plan of care discussed with Dr. Baird Consultation Date/Type/Reason Admit Date/Time Nov 16, 2018 at 05:51 Initial Consult Date 11/16/18 Requesting Provider: DYLON WALLS MD Date/Time of Note DATE: 12/03/18 TIME: 07:50 24 HR Interval Summary Free Text/Dictation 83 yo female in ESRD on HD presents for melena and anemia and also found to have edematous Rt hand/wrist 1. UGIB manifested through melena and anemia -no melena noted or GI bleeding noted by nursing staff 2. Anemia, acute on chronic, acute likely due to blood loss in rt hand Tolerating tube feeds boluses. Pleasantly confused. BM soft brown. Pt stated she was hungry and wanted to eat. Exam/Review of Systems Exam Vitals Vital Signs Date Temp Pulse Resp B/P (MAP) Pulse Ox O2 O2 Flow FiO2 Time Delivery Rate 12/03/18 98.0 77 20 132/90 90 02:00 (104) 12/02/18 Room Air 07:46 11/29/18 2.0 13:20 Intake and Output 12/02/18 12/02/18 12/03/18 1515:00 23:00 07:00 IntakeIntake Total 300 ml 920 ml 50 ml BalanceBalance 300 ml 920 ml 50 ml Constitutional: alert Psych: no complaints Eyes: PERRL Gastrointestinal: soft, non-tender 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: confused Results Result Diagram: 12/01/18 0839 12/01/18 0839 Results 24hrs Laboratory Tests Test 12/02/18 08:09 Bedside Glucose 116 TONY VENCES Dec 03, 2018 07:53
[2018-12-03] MEDS: DOCUSATE SODIUM 10 MG/ML (10ML CUP) GTB SCH (08:12)
[2018-12-03] MEDS: METOPROLOL 50 MG TAB GTB SCH ×2 (08:12→21:48)
[2018-12-03] MEDS: FOLIC ACID 1 MG TAB GTB SCH (08:12)
[2018-12-03] MEDS: LINAGLIPTIN 5 MG TABLET GTB SCH (08:12)
[2018-12-03] MEDS: FERROUS SULFATE (EC) 325 MG TAB PO SCH ×2 (08:12→21:10)
[2018-12-03] MEDS: MULTIVIT/CA CARB/B CMPLX/FA TAB GTB SCH (08:12)
[2018-12-03] MEDS: SENNA TAB PO SCH ×2 (08:12→21:10)
[2018-12-03] MEDS: QUETIAPINE 25 MG TAB GTB SCH ×2 (08:12→21:10)
[2018-12-03] MEDS: LANSOPRAZOLE 30 MG CAP GTB SCH (08:12)
[2018-12-03] MEDS: AMLODIPINE 2.5 MG TAB GTB SCH ×2 (08:13→21:49)
--- NOTE | 2018-12-03 08:38 | CONS ---
Assessment/Plan Assessment/Plan Hospital Course (Demo Recall) 1. Right hand swelling, s/p I and D on 11/17/18 2. Gastrointestinal bleed with melena. 3. Hypertension. 4. Diabetes. 5. End-stage renal disease on hemodialysis. 6. History of falls. 7. Vascular dementia. 8. History of sepsis with VRE. 9. Dysphagia, status post G-tube. 10. History of hip fracture. 11. Thrombocytopenia. 12. Atherosclerotic heart disease. 13. Pneumonia left side Assessment/Plan (Daily) - HD - Permacath removal ? - CHEST X ray +Pneumonia - cw vancomycin/meropenem/caspofungin - Monitor fevers - Hold BP meds before hd - renally dose all meds Consultation Date/Type/Reason Admit Date/Time Nov 16, 2018 at 05:51 Initial Consult Date 11/16/18 Type of Consult nephrology Requesting Provider: DYLON WALLS MD Date/Time of Note DATE: 12/03/18 TIME: 08:38 Exam/Review of Systems Exam Vitals Vital Signs Date Temp Pulse Resp B/P (MAP) Pulse Ox O2 O2 Flow FiO2 Time Delivery Rate 12/03/18 98.1 89 17 128/80 92 08:01 (96) 12/02/18 Room Air 07:46 11/29/18 2.0 13:20 Intake and Output 12/02/18 12/02/18 12/03/18 1515:00 23:00 07:00 IntakeIntake Total 300 ml 920 ml 50 ml BalanceBalance 300 ml 920 ml 50 ml Constitutional: alert, oriented (nsmr), frail Psych: confusion ENMT: nl external ears & nose Neck: supple Respiratory: clear to auscultation Gastrointestinal: soft, other (GT ) Additional Comments left chest permcath Results Result Diagram: 12/01/18 0839 12/01/18 0839 Results 24hrs Laboratory Tests Test 12/03/18 08:11 Bedside Glucose 192 FLAVIO CLAYTON Dec 03, 2018 08:38
--- NOTE | 2018-12-03 08:53 | CONS ---
Consult Date/Type/Reason Admit Date/Time Nov 16, 2018 at 05:51 Initial Consult Date 11/16/18 Type of Consultation: cv Requesting Provider: DYLON WALLS MD Date/Time of Note DATE: 12/03/18 TIME: 08:52 Subjective Cardiology follow up note Sl DW/ Staff pt is less agitated now no report of any chest pain or pressure or palpitations but pt is a very poor historian s/p I/D 11/17 EGD 11.18.18 O: General: Elderly frail male in no acute distress HEENT: NC/AT. pupils are equal. round. NECK: NO JVD. no stridor. CV: RRR. systolic murmur; no gallop or rubs. PULM: no wheezing or rhonchi. GI: SOFT, NT, ND, no rebound or guarding Extremity: Right upper extremity is covered with dressing neuro: awake Psych: calm now rectal: deferred CXR 11/22: 1. Left lung interstitial opacities may reflect edema or pneumonia. Findings are new when compared to the prior examination. 2. Mild cardiomegaly and aortic atherosclerosis. 3. Left chest Perma-Cath with tip in the lower SVC. review of old chart shows ECHO done Oct 2018: Normal left ventricular systolic function. Normal left ventricular cavity size. Moderate concentric left ventricular hypertrophy. Ejection fraction is visually estimated at 65 %. Abnormal Diastolic Function. Mitral valve leaflets appear moderately thickened. Moderate mitral annular calcification. Trace mitral regurgitation. Aortic valve not well visualized. No hemodynamically significant aortic stenosis by doppler. Aortic sclerosis without significant stenosis. Aortic cusps appear mildly calcified. Mild to moderate aortic valve regurgitation. Estimated peak PA systolic pressure 40 mmHg. Tricuspid valve appears moderately thickened. There is mild tricuspid regurgitation. Objective Vitals Vital Signs Date Temp Pulse Resp B/P (MAP) Pulse Ox O2 O2 Flow FiO2 Time Delivery Rate 12/03/18 98.1 89 17 128/80 92 08:01 (96) 12/02/18 Room Air 07:46 11/29/18 2.0 13:20 Intake and Output 12/02/18 12/02/18 12/03/18 1515:00 23:00 07:00 IntakeIntake Total 300 ml 920 ml 50 ml BalanceBalance 300 ml 920 ml 50 ml Results/Medications Result Diagram: 12/01/18 0839 12/01/18 0839 Results 24 hrs Laboratory Tests Test 12/03/18 08:11 Bedside Glucose 192 Home Meds Reported Medications Sennosides* (Senna Lax*) 8.6 Mg Tablet, 1 TAB PO BID, TAB 11/16/18 Sevelamer Carbonate* (Renvela*) 0.8 Gm Powd.pack, 0.8 GM PO WITH MEALS, PACKET 11/16/18 Lansoprazole* (Lansoprazole*) 30 Mg Capsule.dr, 30 MG PO QAM, CAP 11/16/18 Hydralazine Hcl* (Hydralazine Hcl*) 25 Mg Tab, 25 MG PO Q8, #90 TAB 11/16/18 Ferrous Sulfate* (Ferrous Sulfate*) 325 Mg Tabec, 325 MG PO BID for anemia, TAB 11/16/18 Valproate Sodium (Valproic Acid) 250 Mg/5 Ml Solution, 250 MG PO Q8, ML 11/16/18 Insulin Aspart* (Novolog Insulin Pen*) 100 Unit/Ml Soln, 0 SC .SLIDING SCALE AC, EA IF BS 160-200=2 UNITS,201-250=4 UNITS,251-300=8 UNITS,301-350=12 UNITS;351-400=16 UNITS THEN CALL MD. 10/16/18 Ondansetron Hcl* (Zofran*) 4 Mg Tab, 4 MG GTB Q4H PRN for NAUSEA AND OR VOMITING, TAB 10/16/18 Linagliptin (TRADJENTA) 5 Mg Tablet, 5 MG GTB DAILY, TAB 10/16/18 Quetiapine Fumarate* (Seroquel*) 25 Mg Tablet, 25 MG GTB BID, #60 TAB 10/16/18 [Nephro-Roque] No Conflict Check, 0.8 MG GTB DAILY 10/16/18 Polyethylene Glycol* (Miralax*) 17 Gm Powd.pack, 17 GM GTB Q24H, #30 PACKET 10/16/18 Metoprolol Tartrate* (Lopressor*) 50 Mg Tab, 50 MG GTB DAILY, #60 TAB Q MON,WED,FRI,SUN,HOLD FOR SBP<110 OR WI<60 10/16/18 Metoprolol Tartrate* (Lopressor*) 50 Mg Tab, 50 MG GTB BID, #60 TAB QTUE,ANDREW,SAT,HOLD FOR SBP<110 OR WI<60 10/16/18 Linaclotide (LINZESS) 145 Mcg Capsule, 145 MCG GTB DAILY, #30 CAP 10/16/18 Ipratropium-Albuterol (Ipratropium-Albuterol) 0.5-3 Mg/3 Ml Ampul.neb, 3 ML INHALATION Q6, #30 VIAL FOR 14 DAYS,STOP DATE 10/17/18 10/16/18 Hydralazine Hcl* (Hydralazine Hcl*) 25 Mg Tab, 25 MG GTB DAILY, #60 TAB Q TUE,ANDREW,SAT,HOLD IF SBP<110 OR WI<60 10/16/18 Folic Acid* (Folic Acid*) 1 Mg Tablet, 1 MG GTB DAILY, TAB 10/16/18 Docusate Sodium* (Colace*) 100 Mg Capsule, 100 MG GTB DAILY, #30 CAP 10/16/18 Lorazepam* (Lorazepam*) 1 Mg Tablet, 1 MG GTB HS PRN for ANXIETY, #30 TAB Q TUE,ANDREW,SAT 10/16/18 Amlodipine Besylate* (Norvasc*) 5 Mg Tablet, 5 MG GTB BID, TAB TAKE Q TUE,ANDREW,SAT FOR HTN, HOLD FOR SBP<110 OR WI<60 10/16/18 Acetaminophen* (Acetaminophen*) 650 Mg Tablet, 650 MG GTB Q6H PRN for PAIN LEVEL 1-10/10, #30 TAB 10/16/18 Medications Current Medications IV Flush (NS 3 ml) 3 ml PER PROTOCOL IV ; Start 11/16/18 at 09:00 Ondansetron HCl (Zofran Inj) 4 mg Q6H PRN IV NAUSEA AND/OR VOMITING; Start 11/16/18 at 09:00 Acetaminophen (Tylenol Tab) 650 mg Q6H PRN PO PAIN LEVEL 1-3 OR FEVER Last administered on 12/01/18at 21:20; Admin Dose 650 MG; Start 11/16/18 at 09:00 Docusate Sodium (Colace) 100 mg Q12H PRN PO CONSTIPATION; Start 11/16/18 at 09:00 Magnesium Hydroxide (Milk Of Mag) 30 ml DAILY PRN PO CONSTIPATION; Start 11/16/18 at 09:00 Folic Acid (Folic Acid) 1 mg DAILY GTB Last administered on 12/03/18at 08:12; Admin Dose 1 MG; Start 11/16/18 at 09:00 Albuterol/ Ipratropium (Duoneb) 3 ml Q6 PRN HHN sob; Start 11/16/18 at 09:00 Linagliptin (Tradjenta) 5 mg DAILY GTB Last administered on 12/03/18 08:12; Admin Dose 5 MG; Start 11/16/18 at 09:00 Lorazepam (Ativan) 1 mg HS PRN GTB ANXIETY Last administered on 12/01/18 21:20; Admin Dose 1 MG; Start 11/16/18 at 09:00 Quetiapine Fumarate (Seroquel) 25 mg BID GTB Last administered on 12/03/18 08:12; Admin Dose 25 MG; Start 11/16/18 at 09:00 Senna (Senokot) 1 tab BID PO Last administered on 12/03/18 08:12; Admin Dose 1 TAB; Start 11/16/18 at 09:00 Valproate Sodium (Depakene Liquid Cup) 250 mg Q8 PO Last administered on 12/03/18 06:41; Admin Dose 250 MG; Start 11/16/18 at 14:00 Sodium Chloride (NS) -To prime the dialy... DIRECTED FOR HD PRN IV SBP<90; Start 11/16/18 at 15:00 Hydralazine HCl (Apresoline) 10 mg Q4H PRN IV ELEVATED BLOOD PRESSURE Last administered on 12/02/18 06:53; Admin Dose 10 MG; Start 11/17/18 at 10:30 Acetaminophen/ Hydrocodone Bitart ([place] (5/325)) 1 tab Q3H PRN PO MODERATE PAIN LEVEL 4-6 Last administered on 11/27/18 08:12; Admin Dose 1 TAB; Start 11/17/18 at 14:30 Hydralazine HCl (Apresoline) 25 mg Q8 PO Last administered on 12/03/18 06:42; Admin Dose 25 MG; Start 11/18/18 at 06:00 Metoprolol Tartrate (Lopressor) 50 mg BID GTB Last administered on 12/02/18 21:27; Admin Dose 50 MG; Start 11/18/18 at 09:00 Albumin Human 50 ml @ 100 mls/hr WITH DIALYSIS PRN IV SBP<90 Last administered on 11/22/18 11:25; Admin Dose 100 MLS/HR; Start 11/18/18 at 14:30 Morphine Sulfate (morphine) 6 mg Q4H PRN PO SEVERE PAIN LEVEL 7-10 Last administered on 11/27/18 00:35; Admin Dose 6 MG; Start 11/18/18 at 23:00 Docusate Sodium (Colace Liquid Cup) 100 mg DAILY GTB Last administered on 12/03/18 08:12; Admin Dose 100 MG; Start 11/19/18 at 09:30 Guaifenesin/ Dextromethorphan (Robitussin Dm Liquid Cup) 5 ml Q4H PRN PO cough Last administered on 11/23/18 21:50; Admin Dose 5 ML; Start 11/20/18 at 14:00 Amlodipine Besylate (Norvasc) 2.5 mg BID GTB Last administered on 12/02/18 21:27; Admin Dose 2.5 MG; Start 11/22/18 at 21:00 Vancomycin HCl (Vanco Iv Per Pharmacy) VANCOMYCIN PER PHARMACY PER PROTOCOL XX ; Start 11/23/18 at 12:00 Meropenem/Sodium Chloride 50 ml @ 100 mls/hr Q24H IVPB Last administered on 12/02/18 12:38; Admin Dose 100 MLS/HR; Start 11/24/18 at 13:00 Multivit/Ca Carb/ B Cmplx/FA/Prenat (Kianna-Roque) 1 tab DAILY GTB Last administered on 12/03/18 08:12; Admin Dose 1 TAB; Start 11/24/18 at 09:00 Lansoprazole (Prevacid) 30 mg DAILY GTB Last administered on 12/03/18 08:12; Admin Dose 30 MG; Start 11/26/18 at 09:00 Ferrous Sulfate (Ferrous Sulfate (Ec)) 325 mg BID PO Last administered on 12/03/18 08:12; Admin Dose 325 MG; Start 11/25/18 at 21:00 Acetaminophen (Tylenol Supp) 650 mg Q4H PRN [place] MILD PAIN(1-3) OR TEMP>38C Last administered on 11/26/18 08:32; Admin Dose 650 MG; Start 11/26/18 at 08:30 Vancomycin/Sodium Chloride 250 ml @ 125 mls/hr Q72H IVPB Last administered on 11/30/18at 15:41; Admin Dose 125 MLS/HR; Start 11/27/18 at 16:00 Caspofungin 50 mg/ Sodium Chloride 250 ml @ 250 mls/hr Q24H IVPB Last administered on 12/02/18at 10:38; Admin Dose 250 MLS/HR; Start 11/28/18 at 11:00 Miscellaneous Information (*Rx Drug Level Order Reminder*) VANCO TR LEVEL PRIOR... ONCE ONCE XX ; Start 12/03/18 at 15:00; Stop 12/03/18 at 15:01 Assessment/Plan Hospital Course (Demo Recall) Cardiovascular preop evaluation Right hand hematoma: Status post IND now Renal failure on dialysis Hypertension Dementia Anemia Possible GI bleed: Status post EGD AI Recommendations: transfusion with HD prn Dialysis as per renal team Neuro workup and treatment as per internal medicine Thank you for his referral. We will continue to follow along with you as needed basis CHRISTEN ESCOBEDO MD [facility] CHRISTEN ESCOBEDO MD Dec 03, 2018 08:53
--- NOTE | 2018-12-03 11:34 | CONS ---
Assessment/Plan Assessment/Plan Hospital Course (Demo Recall) No acute events, looks comfortable, no fevers Microbiology: Blood cultures grew Dominique glabrata, repeat blood cultures from hemodialysis catheter negative Antimicrobials: Vancomycin, meropenem, Cancidas Chest x-ray this am: Central pulmonary vascular congestion and interstitial prominence in both lungs. Patchy perihilar infiltrates in the left lung with potential small left pleural effusion. Patchy perihilar right lower lobe infiltrates and small right pleural effusion. Indwelling: Left chest permacath, PEG Physical examination: Chronically ill-appearing elderly woman who is awake, confused, in no distress. Head atraumatic normocephalic. Neck is supple. Chest rise symmetrical breath sounds diminished bases. Heart: S1-S2. Abdomen soft bowel sounds present, right upper extremity Armani wrapped Assessment: 1. Sepsis with fungemia, repeat blood cultures negative 2. Healthcare associated pneumonia, possibly aspiration 3. Right hand hematoma, status post I&D 11/17/18 4. Status post VRE bacteremia, status post new Pcath 5. End-stage renal disease, hemodialysis dependent 6. Dementia 7. Failure to thrive 8. Diabetes 9. Anemia Plan: Clinically unchanged, stable, blood cultures sent from hemodialysis catheter remain negative, continue antibiotics for couple more days, Cancidas last day Dec 14 Consultation Date/Type/Reason Admit Date/Time Nov 16, 2018 at 05:51 Initial Consult Date 11/16/18 Type of Consult id Requesting Provider: DYLON WALLS MD Date/Time of Note DATE: 12/03/18 TIME: 11:31 Exam/Review of Systems Exam Vitals Vital Signs Date Temp Pulse Resp B/P (MAP) Pulse Ox O2 O2 Flow FiO2 Time Delivery Rate 12/03/18 98.1 89 17 128/80 92 08:01 (96) 12/02/18 Room Air 07:46 11/29/18 2.0 13:20 Intake and Output 12/02/18 12/02/18 12/03/18 1414:59 22:59 06:59 IntakeIntake Total 300 ml 920 ml 50 ml BalanceBalance 300 ml 920 ml 50 ml Results Result Diagram: 12/01/18 0839 12/01/18 0839 Results 24hrs Laboratory Tests Test 12/03/18 08:11 Bedside Glucose 192 PHYLICIA HOLCOMB NP Dec 03, 2018 11:34
[2018-12-03] MEDS: CASPOFUNGIN 50 MG in SOD CHLORIDE 0.9% 250 ML IVPB SCH (13:42)
[2018-12-03] MEDS: MEROPENEM 500MG/50 ML (PMX) 50 ML IVPB SCH (14:57)
[2018-12-03] MEDS ORDERED: VANCOMYCIN 1 GM 250 ML IVPB SCH (16:00)
[2018-12-03] MEDS: HYDROCODONE/APAP (5/325) TAB PO PRN (16:52)
--- NOTE | 2018-12-03 19:47 | PN ---
DATE: 12/03/2018 SUBJECTIVE: The patient was seen. Daughter is at bedside. Case was discussed. The patient is aler t, slight cough. The patient would like to get more out of bed to a chair if possible with physical therapy. Case was discussed with nephrology regarding need for removal of line. Per recommendation, continue Cancidas until 12/10/2018 and antibiotics in another 1 or 2 more days. PHYSICAL EXAMINATION: VITAL SIGNS: Temperature is 98.1, pulse is 93, respirations 17, blood pressure 147/68, saturation 99 % on 2 liters. GENERAL: In no acute distress. HEENT: Normocephalic. The patient is pale. CARDIOVASCULAR: S1, S2. LUNGS: Faint rhonchi at the bases. ABDOMEN: Soft, nontender. G-tube in place. EXTREMITIES: No clubbing, cyanosis or edema. LABORATORY DATA: On 12/01/2018 was reviewed. Last glucose of 192 and 116. DIAGNOSTIC DATA: The patient's chest x-ray done today shows the following: Calcified atherosclerosi s in the aorta, central pulmonary vascular congestion and interstitial prominence in both lungs, patc hy perihilar infiltrate in the left lung with potential small left pleural effusion, patchy perihilar right lower lobe infiltrate and small right pleural effusion and hyperextended lung. ASSESSMENT AND PLAN: This is an 83-year-old [place]og[place] female with history of end-stage renal disease, dementia, psychiatric disorder, chronic obstructive pulmonary disease , who presented with right chaudhry d edema hematoma status post incision and drainage. She also has pneumonia, possible due to aspirati on, fungemia, possible due to line infection. 1. Respiratory. Finishing antibiotics for pneumonia with vancomycin and Merrem. 2. Fungemia, on Cancidas total of 2 weeks. Further decision regarding line removal per ID. 3. End-stage renal disease on dialysis 3 times a week. 4. Generalized weakness mostly bedbound. Out of bed activity to chair if possible with physical the rapy. 5. Dysphagia, not eating much by mouth. Continue G-tube feeding. 6. Diabetes mellitus. Glucose level in the 100s, controlled. 7. 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 Continue 1:1 sitter and close monitoring. 8. Anemia. Epogen and transfusion as needed. Nephrology is following. DISPOSITION: I discussed with case management. We will follow. Dictated By: DYLON HULL/MADAN Conf#: [id number] [facility]#: [id number] CC: CHRISS WELCH MD;*EndCC*
[2018-12-04] VITALS (9 sets, daily range): BP systolic 149–199; BP diastolic 67–90; PULSE 88–96; RESP 18–20
[2018-12-04] MEDS: LORAZEPAM 1 MG TAB GTB PRN (01:45)
[2018-12-04] MEDS: VALPROIC ACID LIQUID CUP 250 MG/5 ML CUP PO SCH ×3 (06:21→21:59)
[2018-12-04] MEDS: FOLIC ACID 1 MG TAB GTB SCH (08:16)
[2018-12-04] MEDS: DOCUSATE SODIUM 10 MG/ML (10ML CUP) GTB SCH (08:17)
[2018-12-04] MEDS: MULTIVIT/CA CARB/B CMPLX/FA TAB GTB SCH (08:17)
[2018-12-04] MEDS: LANSOPRAZOLE 30 MG CAP GTB SCH (08:17)
[2018-12-04] MEDS: AMLODIPINE 2.5 MG TAB GTB SCH (08:17)
[2018-12-04] MEDS: QUETIAPINE 25 MG TAB GTB SCH ×2 (08:17→21:05)
[2018-12-04] MEDS: SENNA TAB PO SCH ×2 (08:17→21:05)
[2018-12-04] MEDS: METOPROLOL 50 MG TAB GTB SCH ×2 (08:17→21:05)
[2018-12-04] MEDS: LINAGLIPTIN 5 MG TABLET GTB SCH (08:17)
[2018-12-04] MEDS: FERROUS SULFATE (EC) 325 MG TAB PO SCH ×2 (08:17→21:05)
--- NOTE | 2018-12-04 10:01 | CONS ---
Assessment/Plan Assessment/Plan Hospital Course (Demo Recall) 1. Right hand swelling, s/p I and D on 11/17/18 2. Gastrointestinal bleed with melena. 3. Hypertension. 4. Diabetes. 5. End-stage renal disease on hemodialysis. 6. History of falls. 7. Vascular dementia. 8. History of sepsis with VRE. 9. Dysphagia, status post G-tube. 10. History of hip fracture. 11. Thrombocytopenia. 12. Atherosclerotic heart disease. 13. Pneumonia left side Assessment/Plan (Daily) - HD - Permacath removal should be discussed with Dr Sagastume, pt had difficult procedure last time - CHEST X ray +Pneumonia - cw vancomycin/meropenem/caspofungin - Monitor fevers - Hold BP meds before hd - renally dose all meds Consultation Date/Type/Reason Admit Date/Time Nov 16, 2018 at 05:51 Initial Consult Date 11/16/18 Type of Consult nephrology Requesting Provider: DYLON WALLS MD Date/Time of Note DATE: 12/04/18 TIME: 10:00 24 HR Interval Summary Constitutional: disoriented Exam/Review of Systems Exam Vitals Vital Signs Date Temp Pulse Resp B/P (MAP) Pulse Ox O2 O2 Flow FiO2 Time Delivery Rate 12/04/18 98.4 91 20 180/72 99 Room Air 08:00 (108) 12/03/18 2.0 13:20 Intake and Output 12/03/18 12/03/18 12/04/18 1515:00 23:00 07:00 IntakeIntake Total 250 ml 1270 ml 50 ml OutputOutput Total 1900 ml BalanceBalance -1650 ml 1270 ml 50 ml Exam left chest Permcath Respiratory: normal air movement Cardiovascular: regular rate and rhythm 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: confused Results Result Diagram: 12/01/18 0839 12/01/18 0839 Results 24hrs Laboratory Tests Test 12/03/18 14:54 12/04/18 08:15 Vancomycin Level Trough 9.0 L Bedside Glucose 136 Medications Medication Current Medications IV Flush (NS 3 ml) 3 ml PER PROTOCOL IV ; Start 11/16/18 at 09:00 Ondansetron HCl (Zofran Inj) 4 mg Q6H PRN IV NAUSEA AND/OR VOMITING; Start 11/16/18 at 09:00 Acetaminophen (Tylenol Tab) 650 mg Q6H PRN PO PAIN LEVEL 1-3 OR FEVER Last administered on 12/01/18 21:20; Admin Dose 650 MG; Start 11/16/18 at 09:00 Docusate Sodium (Colace) 100 mg Q12H PRN PO CONSTIPATION; Start 11/16/18 at 09:00 Magnesium Hydroxide (Milk Of Mag) 30 ml DAILY PRN PO CONSTIPATION; Start 11/16/18 at 09:00 Folic Acid (Folic Acid) 1 mg DAILY GTB Last administered on 12/04/18 08:16; Admin Dose 1 MG; Start 11/16/18 at 09:00 Albuterol/ Ipratropium (Duoneb) 3 ml Q6 PRN HHN sob; Start 11/16/18 at 09:00 Linagliptin (Tradjenta) 5 mg DAILY GTB Last administered on 12/04/18 08:17; Admin Dose 5 MG; Start 11/16/18 at 09:00 Lorazepam (Ativan) 1 mg HS PRN GTB ANXIETY Last administered on 12/04/18 01:45; Admin Dose 1 MG; Start 11/16/18 at 09:00 Quetiapine Fumarate (Seroquel) 25 mg BID GTB Last administered on 12/04/18 08:17; Admin Dose 25 MG; Start 11/16/18 at 09:00 Senna (Senokot) 1 tab BID PO Last administered on 12/04/18 08:17; Admin Dose 1 TAB; Start 11/16/18 at 09:00 Valproate Sodium (Depakene Liquid Cup) 250 mg Q8 PO Last administered on 12/04/18 06:21; Admin Dose 250 MG; Start 11/16/18 at 14:00 Sodium Chloride (NS) -To prime the dialy... DIRECTED FOR HD PRN IV SBP<90; Start 11/16/18 at 15:00 Hydralazine HCl (Apresoline) 10 mg Q4H PRN IV ELEVATED BLOOD PRESSURE Last administered on 12/02/18 06:53; Admin Dose 10 MG; Start 11/17/18 at 10:30 Acetaminophen/ Hydrocodone Bitart ([place] (5/325)) 1 tab Q3H PRN PO MODERATE PAIN LEVEL 4-6 Last administered on 12/03/18 16:52; Admin Dose 1 TAB; Start 11/17/18 at 14:30 Hydralazine HCl (Apresoline) 25 mg Q8 PO Last administered on 12/04/18 06:22; Admin Dose 25 MG; Start 11/18/18 at 06:00 Metoprolol Tartrate (Lopressor) 50 mg BID GTB Last administered on 12/04/18 08 :17; Admin Dose 50 MG; Start 11/18/18 at 09:00 Albumin Human 50 ml @ 100 mls/hr WITH DIALYSIS PRN IV SBP<90 Last administered on 11/22/18 11:25; Admin Dose 100 MLS/HR; Start 11/18/18 at 14:30 Morphine Sulfate (morphine) 6 mg Q4H PRN PO SEVERE PAIN LEVEL 7-10 Last administered on 11/27/18 00:35; Admin Dose 6 MG; Start 11/18/18 at 23:00 Docusate Sodium (Colace Liquid Cup) 100 mg DAILY GTB Last administered on 12/04/18 08:17; Admin Dose 100 MG; Start 11/19/18 at 09:30 Guaifenesin/ Dextromethorphan (Robitussin Dm Liquid Cup) 5 ml Q4H PRN PO cough Last administered on 11/23/18 21:50; Admin Dose 5 ML; Start 11/20/18 at 14:00 Amlodipine Besylate (Norvasc) 2.5 mg BID GTB Last administered on 12/04/18 08:17; Admin Dose 2.5 MG; Start 11/22/18 at 21:00 Vancomycin HCl (Vanco Iv Per Pharmacy) VANCOMYCIN PER PHARMACY PER PROTOCOL XX ; Start 11/23/18 at 12:00 Meropenem/Sodium Chloride 50 ml @ 100 mls/hr Q24H IVPB Last administered on 12/03/18 14:57; Admin Dose 100 MLS/HR; Start 11/24/18 at 13:00 Multivit/Ca Carb/ B Cmplx/FA/Prenat (Kianna-Roque) 1 tab DAILY GTB Last administered on 12/04/18 08:17; Admin Dose 1 TAB; Start 11/24/18 at 09:00 Lansoprazole (Prevacid) 30 mg DAILY GTB Last administered on 12/04/18 08:17; Admin Dose 30 MG; Start 11/26/18 at 09:00 Ferrous Sulfate (Ferrous Sulfate (Ec)) 325 mg BID PO Last administered on 12/04/18at 08:17; Admin Dose 325 MG; Start 11/25/18 at 21:00 Acetaminophen (Tylenol Supp) 650 mg Q4H PRN [place] MILD PAIN(1-3) OR TEMP>38C Last administered on 11/26/18at 08:32; Admin Dose 650 MG; Start 11/26/18 at 08:30 Caspofungin 50 mg/ Sodium Chloride 250 ml @ 250 mls/hr Q24H IVPB Last administered on 12/03/18at 13:42; Admin Dose 250 MLS/HR; Start 11/28/18 at 11:00 Vancomycin HCl 250 ml @ 125 mls/hr Q72H IVPB Last administered on 12/03/18at 16:05; Admin Dose 125 MLS/HR; Start 12/03/18 at 16:00 FLAVIO CLAYTON Dec 04, 2018 10:01
[2018-12-04] MEDS: CASPOFUNGIN 50 MG in SOD CHLORIDE 0.9% 250 ML IVPB SCH (11:36)
[2018-12-04] MEDS: MEROPENEM 500MG/50 ML (PMX) 50 ML IVPB SCH (14:30)
--- NOTE | 2018-12-04 15:08 | CONS ---
Consultation Date/Type/Reason Admit Date/Time Nov 16, 2018 at 05:51 Initial Consult Date SUBJECTIVE: Patient is awake, alert, afebrile. No acute events over night. VS: stable. T: 98.4 LABS: reviewed. Microbiology: blood cultures from 11/29/18: BLOOD CULTURE Preliminary BCULT GRAM BOTTLE 1 Yeast . seen on gram stain of the broth Organism 1 YEAST REPEAT BLOOD CULTURES ARE NEGATIVE CXR 12/03/18: Central pulmonary vascular congestion and interstitial prominence in both lungs. Patchy perihilar infiltrates in the left lung with potential small left pleural effusion. Patchy perihilar right lower lobe infiltrates and small right pleural effusion. Antimicrobials: Vancomycin, meropenem, Cancidas Indwelling: Left chest permacath, PEG PHYSICAL EXAM: GEN: Chronically ill-appearing elderly woman who is awake, confused, in no distress. HENT: Head atraumatic normocephalic. Neck is supple. PULM: Chest rise symmetrical breath sounds diminished bases. Heart: S1-S2. Abdomen soft bowel sounds present Extremities without R FA edema/erythema Assessment: 1. Right hand hematoma, status post I&D 11/17/18 2. Status post VRE bacteremia, status post new Pcath 3. End-stage renal disease, hemodialysis dependent 4. Dementia 5. Failure to thrive 6. Diabetes 8. Anemia 9. Health care Acquired PNA -improving 10. Sepsis with fungemia, repeat blood cultures negative Plan: Patient remains stable. CXR from yesterday noted. Continue current antibiotics and aspiration precautions. Cancidas last day Dec 14 Requesting Provider: DYLON WALLS MD Date/Time of Note DATE: 12/04/18 TIME: 15:04 Exam/Review of Systems Exam Vitals Vital Signs Date Temp Pulse Resp B/P (MAP) Pulse Ox O2 O2 Flow FiO2 Time Delivery Rate 12/04/18 89 178/90 14:31 (119) 12/04/18 98.4 20 99 Room Air 08:00 12/03/18 2.0 13:20 Intake and Output 12/03/18 12/03/18 12/04/18 1515:00 23:00 07:00 IntakeIntake Total 250 ml 1270 ml 50 ml OutputOutput Total 1900 ml BalanceBalance -1650 ml 1270 ml 50 ml Results Result Diagram: 12/01/18 0839 12/01/18 0839 Results 24hrs Laboratory Tests Test 12/04/18 08:15 Bedside Glucose 136 Medications Medication Current Medications IV Flush (NS 3 ml) 3 ml PER PROTOCOL IV ; Start 11/16/18 at 09:00 Ondansetron HCl (Zofran Inj) 4 mg Q6H PRN IV NAUSEA AND/OR VOMITING; Start 11/16/18 at 09:00 Acetaminophen (Tylenol Tab) 650 mg Q6H PRN PO PAIN LEVEL 1-3 OR FEVER Last administered on 12/01/18at 21:20; Admin Dose 650 MG; Start 11/16/18 at 09:00 Docusate Sodium (Colace) 100 mg Q12H PRN PO CONSTIPATION; Start 11/16/18 at 0 9:00 Magnesium Hydroxide (Milk Of Mag) 30 ml DAILY PRN PO CONSTIPATION; Start 11/16/18 at 09:00 Folic Acid (Folic Acid) 1 mg DAILY GTB Last administered on 12/04/18at 08:16; Admin Dose 1 MG; Start 11/16/18 at 09:00 Albuterol/ Ipratropium (Duoneb) 3 ml Q6 PRN HHN sob; Start 11/16/18 at 09:00 Linagliptin (Tradjenta) 5 mg DAILY GTB Last administered on 12/04/18 08:17; Admin Dose 5 MG; Start 11/16/18 at 09:00 Lorazepam (Ativan) 1 mg HS PRN GTB ANXIETY Last administered on 12/04/18at 01:45; Admin Dose 1 MG; Start 11/16/18 at 09:00 Quetiapine Fumarate (Seroquel) 25 mg BID GTB Last administered on 12/04/18 08:17; Admin Dose 25 MG; Start 11/16/18 at 09:00 Senna (Senokot) 1 tab BID PO Last administered on 12/04/18 08:17; Admin Dose 1 TAB; Start 11/16/18 at 09:00 Valproate Sodium (Depakene Liquid Cup) 250 mg Q8 PO Last administered on 12/04/18 14:31; Admin Dose 250 MG; Start 11/16/18 at 14:00 Sodium Chloride (NS) -To prime the dialy... DIRECTED FOR HD PRN IV SBP<90; Start 11/16/18 at 15:00 Hydralazine HCl (Apresoline) 10 mg Q4H PRN IV ELEVATED BLOOD PRESSURE Last administered on 12/02/18 06:53; Admin Dose 10 MG; Start 11/17/18 at 10:30 Acetaminophen/ Hydrocodone Bitart ([place] (5/325)) 1 tab Q3H PRN PO MODERATE PAIN LEVEL 4-6 Last administered on 12/03/18 16:52; Admin Dose 1 TAB; Start 11/17/18 at 14:30 Hydralazine HCl (Apresoline) 25 mg Q8 PO Last administered on 12/04/18 14:31; Admin Dose 25 MG; Start 11/18/18 at 06:00 Metoprolol Tartrate (Lopressor) 50 mg BID GTB Last administered on 12/04/18 08:17; Admin Dose 50 MG; Start 11/18/18 at 09:00 Albumin Human 50 ml @ 100 mls/hr WITH DIALYSIS PRN IV SBP<90 Last administered on 11/22/18 11:25; Admin Dose 100 MLS/HR; Start 11/18/18 at 14:30 Morphine Sulfate (morphine) 6 mg Q4H PRN PO SEVERE PAIN LEVEL 7-10 Last administered on 11/27/18 00:35; Admin Dose 6 MG; Start 11/18/18 at 23:00 Docusate Sodium (Colace Liquid Cup) 100 mg DAILY GTB Last administered on 12/04/18 08:17; Admin Dose 100 MG; Start 11/19/18 at 09:30 Guaifenesin/ Dextromethorphan (Robitussin Dm Liquid Cup) 5 ml Q4H PRN PO cough Last administered on 11/23/18at 21:50; Admin Dose 5 ML; Start 11/20/18 at 14:00 Amlodipine Besylate (Norvasc) 2.5 mg BID GTB Last administered on 12/04/18 08:17; Admin Dose 2.5 MG; Start 11/22/18 at 21:00 Vancomycin HCl (Vanco Iv Per Pharmacy) VANCOMYCIN PER PHARMACY PER PROTOCOL XX ; Start 11/23/18 at 12:00 Meropenem/Sodium Chloride 50 ml @ 100 mls/hr Q24H IVPB Last administered on 12/04/18at 14:30; Admin Dose 100 MLS/HR; Start 11/24/18 at 13:00 Multivit/Ca Carb/ B Cmplx/FA/Prenat (Kianna-Roque) 1 tab DAILY GTB Last administered on 12/04/18 08:17; Admin Dose 1 TAB; Start 11/24/18 at 09:00 Lansoprazole (Prevacid) 30 mg DAILY GTB Last administered on 12/04/18 08:17; Admin Dose 30 MG; Start 11/26/18 at 09:00 Ferrous Sulfate (Ferrous Sulfate (Ec)) 325 mg BID PO Last administered on 12/04/18 08:17; Admin Dose 325 MG; Start 11/25/18 at 21:00 Acetaminophen (Tylenol Supp) 650 mg Q4H PRN [place] MILD PAIN(1-3) OR TEMP>38C Last administered on 11/26/18at 08:32; Admin Dose 650 MG; Start 11/26/18 at 08:30 Caspofungin 50 mg/ Sodium Chloride 250 ml @ 250 mls/hr Q24H IVPB Last administered on 12/04/18at 11:36; Admin Dose 250 MLS/HR; Start 11/28/18 at 11:00 Vancomycin HCl 250 ml @ 125 mls/hr Q72H IVPB Last administered on 12/03/18 16:05; Admin Dose 125 MLS/HR; Start 12/03/18 at 16:00 SCOTT SHEEHAN Dec 04, 2018 15:08
[2018-12-04] MEDS: hydrALAzine 20 MG INJ IV PRN (21:06)
--- NOTE | 2018-12-04 21:51 | PN ---
DATE: 12/04/2018 HISTORY: The patient is seen. Another blood cultures came back positive for yeast, but this was on 11/29/2018, one day after we got the original culture. So, hopefully we can prevent removal of the l ine especially it is very difficult to place a line as she had bleeding from before etc. We will see how she does. Follow up all remaining blood cultures dated later. ID is following and vascular is following. Case discussed with nephrology. PHYSICAL EXAMINATION: VITAL SIGNS: Temperature 98.4, pulse 88, respiration is 20, blood pressure 159/68, saturation is 99% on room air. GENERAL: No acute distress. The patient is alert and awake. CARDIOVASCULAR: S1, S2, regular rate. LUNGS: Clear. ABDOMEN: Soft, nontender. EXTREMITIES: No clubbing, cyanosis or edema. LABORATORY DATA: White count 8.8 and hemoglobin 9.3, this is from 12/01/2018. Last glucose was 136, 192 and 116. MEDICATIONS: All reviewed and they include: 1. Vancomycin IV. 2. Caspofungin. 3. Prevacid. 4. Tylenol. 5. ____ 6. Merrem. 7. Kianna-Roque. 8. Vancomycin as stated. 9. Norvasc. 10. Robitussin. 11. Colace. 12. Morphine. 13. Lopressor. 14. Hydralazine. 15. [facility] [place]. All medication basically reviewed. ASSESSMENT AND PLAN: This is an unfortunate 83-year-old [place] female with history of end-stage re nal disease, dementia, psychiatric disorder, and COPD who presented with right hand edema and hematom a status post incision and drainage. Also was found to have pneumonia due to aspiration and fungemia likely due to line infection. 1. Respiratory. Stable. Remains on antibiotics for pneumonia. Last chest x-ray dated yesterday st ill shows evidence of pneumonia, but clinically doing much better. 2. Cardiovascular. Vitals remain stable. Blood pressure is slightly elevated. May titrate medicat ions further up. 3. End-stage renal disease. Dialysis per nephrology. 4. Fungemia. Continue ____ for two weeks until 12/14 regarding line removal. Decision will be made by ID and vascular. 5. Generalized weakness, mostly bedbound. Out of bed activities if possible with physical therapy. 6. Dysphagia. Continue G-tube feeding. 7. Diabetes mellitus. Glucose levels are in the 100s. Continue Tradjenta and insulin sliding scale . 8. 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 Remains with 1:1 sitter and close monitoring. 9. Anemia. Epogen and transfusion p.r.n. 10. Check tomorrow's labs. If clinically improved, we will follow. Dictated By: DYLON HULL/MADAN Conf#: [id number] DID#: [id number]
[2018-12-04] MEDS: AMLODIPINE 5 MG TAB GTB SCH (21:59)
[2018-12-05] MEDS: LORAZEPAM 1 MG TAB GTB PRN (00:01)
[2018-12-05] MEDS: ACETAMINOPHEN 325 MG TAB PO PRN (00:01)
[2018-12-05 02:00] VITALS: BP 168/79; PULSE 80; RESP 17
[2018-12-05] MEDS: VALPROIC ACID LIQUID CUP 250 MG/5 ML CUP PO SCH ×3 (06:16→22:10)
[2018-12-05 07:29] VITALS: BP 169/75; PULSE 85; RESP 18
[2018-12-05] MEDS: DOCUSATE SODIUM 10 MG/ML (10ML CUP) GTB SCH (09:00)
[2018-12-05] MEDS: MULTIVIT/CA CARB/B CMPLX/FA TAB GTB SCH (09:50)
[2018-12-05] MEDS: FOLIC ACID 1 MG TAB GTB SCH (09:51)
[2018-12-05] MEDS: METOPROLOL 50 MG TAB GTB SCH ×2 (09:51→20:55)
[2018-12-05] MEDS: AMLODIPINE 5 MG TAB GTB SCH ×2 (09:52→20:55)
[2018-12-05] MEDS: LANSOPRAZOLE 30 MG CAP GTB SCH (09:52)
[2018-12-05] MEDS: QUETIAPINE 25 MG TAB GTB SCH ×2 (09:52→20:46)
[2018-12-05] MEDS: LINAGLIPTIN 5 MG TABLET GTB SCH (09:56)
--- NOTE | 2018-12-05 10:08 | CONS ---
Assessment/Plan Assessment/Plan Hospital Course (Demo Recall) 1. End-stage renal disease on hemodialysis. 2. Gastrointestinal bleed with melena. 3. Hypertension. 4. Diabetes. 5. Right hand swelling, s/p I and D on 11/17/18 6. History of falls. 7. Vascular dementia. 8. History of sepsis with VRE. 9. Dysphagia, status post G-tube. 10. History of hip fracture. 11. Thrombocytopenia. 12. Atherosclerotic heart disease. 13. Pneumonia left side 14. Anemia Assessment/Plan (Daily) -start epogen - HD - Permacath removal should be discussed with Dr Sagastume, pt had difficult procedure last time - CHEST X ray +Pneumonia - cw vancomycin/meropenem/caspofungin - Monitor fevers - Hold BP meds before hd - renally dose all meds Consultation Date/Type/Reason Admit Date/Time Nov 16, 2018 at 05:51 Initial Consult Date 11/16/18 Type of Consult nephrology Requesting Provider: DYLON WALLS MD Date/Time of Note DATE: 12/05/18 TIME: 10:06 24 HR Interval Summary Constitutional: disoriented Exam/Review of Systems Exam Vitals Vital Signs Date Temp Pulse Resp B/P (MAP) Pulse Ox O2 O2 Flow FiO2 Time Delivery Rate 12/05/18 98.2 85 18 169/75 98 Room Air 07:29 (106) 12/03/18 2.0 13:20 Intake and Output 12/04/18 12/04/18 12/05/18 1515:00 23:00 07:00 IntakeIntake Total 300 ml BalanceBalance 300 ml Exam right chest Perm cath Constitutional: frail Head: normocephalic Eyes: nl conjunctiva Neck: supple Respiratory: diminished breath sounds Cardiovascular: regular rate and rhythm Gastrointestinal: soft, other (GT) 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: confused Skin: ecchymosis Results Result Diagram: 12/05/18 0510 12/05/18 0511 Results 24hrs Laboratory Tests Test 12/05/18 05:10 12/05/18 05:11 White Blood Count 10.5 Red Blood Count 2.61 #L Hemoglobin 7.0 #L Hematocrit 22.5 #L Mean Corpuscular Volume 86.2 Mean Corpuscular Hemoglobin 26.8 L Mean Corpuscular Hemoglobin Concent 31.1 L Red Cell Distribution Width 16.7 H Platelet Count 270 Mean Platelet Volume 11.6 H Immature Granulocytes % 1.100 H Neutrophils % 70.9 Lymphocytes % 11.2 L Monocytes % 10.8 Eosinophils % 5.4 Basophils % 0.6 Nucleated Red Blood Cells % 0.5 H Immature Granulocytes # 0.120 H Neutrophils # 7.5 Lymphocytes # 1.2 Monocytes # 1.1 H Eosinophils # 0.6 H Basophils # 0.1 Nucleated Red Blood Cells # 0.1 H Sodium Level 142 Potassium Level 3.8 Chloride Level 100 Carbon Dioxide Level 29 Anion Gap 13 Blood Urea Nitrogen 52 H Creatinine 1.75 H Est Glomerular Filtrat Rate mL/min Glucose Level 103 Calcium Level 8.8 Phosphorus Level 4.0 Magnesium Level 2.3 Medications Medication Current Medications IV Flush (NS 3 ml) 3 ml PER PROTOCOL IV ; Start 11/16/18 at 09:00 Ondansetron HCl (Zofran Inj) 4 mg Q6H PRN IV NAUSEA AND/OR VOMITING; Start 11/16/18 at 09:00 Acetaminophen (Tylenol Tab) 650 mg Q6H PRN PO PAIN LEVEL 1-3 OR FEVER Last administered on 12/05/18at 00:01; Admin Dose 650 MG; Start 11/16/18 at 09:00 Docusate Sodium (Colace) 100 mg Q12H PRN PO CONSTIPATION; Start 11/16/18 at 09:00 Magnesium Hydroxide (Milk Of Mag) 30 ml DAILY PRN PO CONSTIPATION; Start 11/16/18 at 09:00 Folic Acid (Folic Acid) 1 mg DAILY GTB Last administered on 12/05/18at 09:51; Admin Dose 1 MG; Start 11/16/18 at 09:00 Albuterol/ Ipratropium (Duoneb) 3 ml Q6 PRN HHN sob; Start 11/16/18 at 09:00 Linagliptin (Tradjenta) 5 mg DAILY GTB Last administered on 12/05/18at 09:56; Admin Dose 5 MG; Start 11/16/18 at 09:00 Lorazepam (Ativan) 1 mg HS PRN GTB ANXIETY Last administered on 12/05/18at 00:01; Admin Dose 1 MG; Start 11/16/18 at 09:00 Quetiapine Fumarate (Seroquel) 25 mg BID GTB Last administered on 12/05/18at 09:52; Admin Dose 25 MG; Start 11/16/18 at 09:00 Senna (Senokot) 1 tab BID PO Last administered on 12/04/18 21:05; Admin Dose 1 TAB; Start 11/16/18 at 09:00 Valproate Sodium (Depakene Liquid Cup) 250 mg Q8 PO Last administered on 12/05/18 06:16; Admin Dose 250 MG; Start 11/16/18 at 14:00 Sodium Chloride (NS) -To prime the dialy... DIRECTED FOR HD PRN IV SBP<90; Start 11/16/18 at 15:00 Hydralazine HCl (Apresoline) 10 mg Q4H PRN IV ELEVATED BLOOD PRESSURE Last administered on 12/04/18 21:06; Admin Dose 10 MG; Start 11/17/18 at 10:30 Acetaminophen/ Hydrocodone Bitart ([place] (5/325)) 1 tab Q3H PRN PO MODERATE PAIN LEVEL 4-6 Last administered on 12/03/18 16:52; Admin Dose 1 TAB; Start 11/17/18 at 14:30 Hydralazine HCl (Apresoline) 25 mg Q8 PO Last administered on 12/05/18 06:16; Admin Dose 25 MG; Start 11/18/18 at 06:00 Metoprolol Tartrate (Lopressor) 50 mg BID GTB Last administered on 12/05/18 09:51; Admin Dose 50 MG; Start 11/18/18 at 09:00 Albumin Human 50 ml @ 100 mls/hr WITH DIALYSIS PRN IV SBP<90 Last administered on 11/22/18 11:25; Admin Dose 100 MLS/HR; Start 11/18/18 at 14:30 Morphine Sulfate (morphine) 6 mg Q4H PRN PO SEVERE PAIN LEVEL 7-10 Last administered on 11/27/18 00:35; Admin Dose 6 MG; Start 11/18/18 at 23:00 Docusate Sodium (Colace Liquid Cup) 100 mg DAILY GTB Last administered on 12/04/18 08:17; Admin Dose 100 MG; Start 11/19/18 at 09:30 Guaifenesin/ Dextromethorphan (Robitussin Dm Liquid Cup) 5 ml Q4H PRN PO cough Last administered on 11/23/18 21:50; Admin Dose 5 ML; Start 11/20/18 at 14:00 Vancomycin HCl (Vanco Iv Per Pharmacy) VANCOMYCIN PER PHARMACY PER PROTOCOL XX ; Start 11/23/18 at 12:00 Meropenem/Sodium Chloride 50 ml @ 100 mls/hr Q24H IVPB Last administered on 12/04/18 14:30; Admin Dose 100 MLS/HR; Start 11/24/18 at 13:00 Multivit/Ca Carb/ B Cmplx/FA/Prenat (Kianna-Roque) 1 tab DAILY GTB Last administered on 12/05/18 09:50; Admin Dose 1 TAB; Start 11/24/18 at 09:00 Lansoprazole (Prevacid) 30 mg DAILY GTB Last administered on 12/05/18 09:52; Admin Dose 30 MG; Start 11/26/18 at 09:00 Acetaminophen (Tylenol Supp) 650 mg Q4H PRN [place] MILD PAIN(1-3) OR TEMP>38C Last administered on 11/26/18 08:32; Admin Dose 650 MG; Start 11/26/18 at 08:30 Caspofungin 50 mg/ Sodium Chloride 250 ml @ 250 mls/hr Q24H IVPB Last administered on 12/04/18 11:36; Admin Dose 250 MLS/HR; Start 11/28/18 at 11:00 Vancomycin HCl 250 ml @ 125 mls/hr Q72H IVPB Last administered on 12/03/18 16:05; Admin Dose 125 MLS/HR; Start 12/03/18 at 16:00 Amlodipine Besylate (Norvasc) 5 mg BID GTB Last administered on 12/05/18 09:52; Admin Dose 5 MG; Start 12/04/18 at 21:00 Ferrous Sulfate (Feosol Liquid Cup) 300 mg BID GTB ; Start 12/05/18 at 09:30 FLAVIO CLAYTON Dec 05, 2018 10:08
[2018-12-05] MEDS: SENNA TAB PO SCH ×2 (10:21→20:46)
[2018-12-05] MEDS: CASPOFUNGIN 50 MG in SOD CHLORIDE 0.9% 250 ML IVPB SCH (12:17)
[2018-12-05] MEDS: FERROUS SULFATE 60 MG/ML 5ML CUP GTB SCH ×2 (12:22→20:47)
[2018-12-05] MEDS: MEROPENEM 500MG/50 ML (PMX) 50 ML IVPB SCH (14:19)
[2018-12-05 14:21] VITALS: PULSE 77; RESP 17
--- NOTE | 2018-12-05 14:21 | CONS ---
Assessment/Plan Assessment/Plan Hospital Course (Demo Recall) No acute changes overnight patient looks comfortable she is afebrile WBC 10.5 H&H 7 and 22.5 platelets 270 neutrophils 70.9 BUN 52 creatinine 1.75 Microbiology: Blood culture repeated on November 29 grew Dominique glabrata blood cultures since December 01 that were drawn from permacath negative blood culture on December 03 preliminary negative Antimicrobials: Vancomycin, meropenem, Cancidas Indwelling: Left chest permacath, PEG Physical examination: Chronically ill-appearing elderly woman who is awake, confused, in no distress. Head atraumatic normocephalic. Neck is supple. Chest rise symmetrical breath sounds diminished bases. Heart: S1-S2. Abdomen soft bowel sounds present, right upper extremity Armani wrapped Assessment: 1. Sepsis with fungemia ?line 2. Healthcare associated pneumonia, possibly aspiration 3. Right hand hematoma, status post I&D 11/17/18 4. Status post VRE bacteremia, status post new Pcath 5. End-stage renal disease, hemodialysis dependent 6. Dementia 7. Failure to thrive 8. Diabetes 9. Anemia Plan: Clinically unchanged, stable, blood cultures sent from hemodialysis catheter remain negative, we will discontinue antibiotics, and keep her on Ca ncidas to complete 2 weeks total, last dose on December 16 given positive cultures on November 29. After that recommend to keep on oral fluconazole for another 2 weeks Consultation Date/Type/Reason Admit Date/Time Nov 16, 2018 at 05:51 Initial Consult Date 11/16/18 Type of Consult id Requesting Provider: DYLON WALLS MD Date/Time of Note DATE: 12/05/18 TIME: 14:18 Exam/Review of Systems Exam Vitals Vital Signs Date Temp Pulse Resp B/P (MAP) Pulse Ox O2 O2 Flow FiO2 Time Delivery Rate 12/05/18 98.2 85 18 169/75 98 Room Air 07:29 (106) 12/03/18 2.0 13:20 Intake and Output 12/04/18 12/04/18 12/05/18 1515:00 23:00 07:00 IntakeIntake Total 300 ml BalanceBalance 300 ml Results Result Diagram: 12/05/18 0510 12/05/18 0511 Results 24hrs Laboratory Tests Test 12/05/18 05:10 12/05/18 05:11 12/05/18 09:56 White Blood Count 10.5 Red Blood Count 2.61 #L Hemoglobin 7.0 #L Hematocrit 22.5 #L Mean Corpuscular Volume 86.2 Mean Corpuscular Hemoglobin 26.8 L Mean Corpuscular Hemoglobin Concent 31.1 L Red Cell Distribution Width 16.7 H Platelet Count 270 Mean Platelet Volume 11.6 H Immature Granulocytes % 1.100 H Neutrophils % 70.9 Lymphocytes % 11.2 L Monocytes % 10.8 Eosinophils % 5.4 Basophils % 0.6 Nucleated Red Blood Cells % 0.5 H Immature Granulocytes # 0.120 H Neutrophils # 7.5 Lymphocytes # 1.2 Monocytes # 1.1 H Eosinophils # 0.6 H Basophils # 0.1 Nucleated Red Blood Cells # 0.1 H Sodium Level 142 Potassium Level 3.8 Chloride Level 100 Carbon Dioxide Level 29 Anion Gap 13 Blood Urea Nitrogen 52 H Creatinine 1.75 H Est Glomerular Filtrat Rate mL/min Glucose Level 103 Calcium Level 8.8 Phosphorus Level 4.0 Magnesium Level 2.3 Bedside Glucose 129 Medications Medication Current Medications IV Flush (NS 3 ml) 3 ml PER PROTOCOL IV ; Start 11/16/18 at 09:00 Ondansetron HCl (Zofran Inj) 4 mg Q6H PRN IV NAUSEA AND/OR VOMITING; Start 11/16/18 at 09:00 Acetaminophen (Tylenol Tab) 650 mg Q6H PRN PO PAIN LEVEL 1-3 OR FEVER Last administered on 12/05/18at 00:01; Admin Dose 650 MG; Start 11/16/18 at 09:00 Docusate Sodium (Colace) 100 mg Q12H PRN PO CONSTIPATION; Start 11/16/18 at 09:00 Magnesium Hydroxide (Milk Of Mag) 30 ml DAILY PRN PO CONSTIPATION; Start 11/16/18 at 09:00 Folic Acid (Folic Acid) 1 mg DAILY GTB Last administered on 12/05/18at 09:51; Admin Dose 1 MG; Start 11/16/18 at 09:00 Albuterol/ Ipratropium (Duoneb) 3 ml Q6 PRN HHN sob; Start 11/16/18 at 09:00 Linagliptin (Tradjenta) 5 mg DAILY GTB Last administered on 12/05/18at 09:56; Admin Dose 5 MG; Start 11/16/18 at 09:00 Lorazepam (Ativan) 1 mg HS PRN GTB ANXIETY Last administered on 12/05/18 00:01; Admin Dose 1 MG; Start 11/16/18 at 09:00 Quetiapine Fumarate (Seroquel) 25 mg BID GTB Last administered on 12/05/18 09:52; Admin Dose 25 MG; Start 11/16/18 at 09:00 Senna (Senokot) 1 tab BID PO Last administered on 12/05/18 10:21; Admin Dose 1 TAB; Start 11/16/18 at 09:00 Valproate Sodium (Depakene Liquid Cup) 250 mg Q8 PO Last administered on 12/05/18 06:16; Admin Dose 250 MG; Start 11/16/18 at 14:00 Sodium Chloride (NS) -To prime the dialy... DIRECTED FOR HD PRN IV SBP<90; Start 11/16/18 at 15:00 Hydralazine HCl (Apresoline) 10 mg Q4H PRN IV ELEVATED BLOOD PRESSURE Last administered on 12/04/18at 21:06; Admin Dose 10 MG; Start 11/17/18 at 10:30 Acetaminophen/ Hydrocodone Bitart ([place] (5/325)) 1 tab Q3H PRN PO MODERATE PAIN LEVEL 4-6 Last administered on 12/03/18 16:52; Admin Dose 1 TAB; Start 11/17/18 at 14:30 Hydralazine HCl (Apresoline) 25 mg Q8 PO Last administered on 12/05/18 06:16; Admin Dose 25 MG; Start 11/18/18 at 06:00 Metoprolol Tartrate (Lopressor) 50 mg BID GTB Last administered on 12/05/18 09:51; Admin Dose 50 MG; Start 11/18/18 at 09:00 Albumin Human 50 ml @ 100 mls/hr WITH DIALYSIS PRN IV SBP<90 Last administered on 11/22/18 11:25; Admin Dose 100 MLS/HR; Start 11/18/18 at 14:30 Morphine Sulfate (morphine) 6 mg Q4H PRN PO SEVERE PAIN LEVEL 7-10 Last administered on 11/27/18 00:35; Admin Dose 6 MG; Start 11/18/18 at 23:00 Docusate Sodium (Colace Liquid Cup) 100 mg DAILY GTB Last administered on 12/04/18 08:17; Admin Dose 100 MG; Start 11/19/18 at 09:30 Guaifenesin/ Dextromethorphan (Robitussin Dm Liquid Cup) 5 ml Q4H PRN PO cough Last administered on 11/23/18 21:50; Admin Dose 5 ML; Start 11/20/18 at 14:00 Vancomycin HCl (Vanco Iv Per Pharmacy) VANCOMYCIN PER PHARMACY PER PROTOCOL XX ; Start 11/23/18 at 12:00 Meropenem/Sodium Chloride 50 ml @ 100 mls/hr Q24H IVPB Last administered on 12/04/18 14:30; Admin Dose 100 MLS/HR; Start 11/24/18 at 13:00 Multivit/Ca Carb/ B Cmplx/FA/Prenat (Kianna-Roque) 1 tab DAILY GTB Last administered on 12/05/18 09:50; Admin Dose 1 TAB; Start 11/24/18 at 09:00 Lansoprazole (Prevacid) 30 mg DAILY GTB Last administered on 12/05/18 09:52; Admin Dose 30 MG; Start 11/26/18 at 09:00 Acetaminophen (Tylenol Supp) 650 mg Q4H PRN [place] MILD PAIN(1-3) OR TEMP>38C Last administered on 11/26/18 08:32; Admin Dose 650 MG; Start 11/26/18 at 08:30 Caspofungin 50 mg/ Sodium Chloride 250 ml @ 250 mls/hr Q24H IVPB Last administered on 12/05/18 12:17; Admin Dose 250 MLS/HR; Start 11/28/18 at 11:00 Vancomycin HCl 250 ml @ 125 mls/hr Q72H IVPB Last administered on 12/03/18 16:05; Admin Dose 125 MLS/HR; Start 12/03/18 at 16:00 Amlodipine Besylate (Norvasc) 5 mg BID GTB Last administered on 12/05/18 09:52; Admin Dose 5 MG; Start 12/04/18 at 21:00 Ferrous Sulfate (Feosol Liquid Cup) 300 mg BID GTB Last administered on 12/05/18 12:22; Admin Dose 300 MG; Start 12/05/18 at 09:30 Epoetin Michael (Epogen (Esrd)) 4,000 units [email or web address] [place] [facility] [place] Start 12/06/18 at 17:00 PHYLICIA HOLCOMB NP Dec 05, 2018 14:21
[2018-12-05 15:55] VITALS: BP 140/58; PULSE 77; RESP 17
--- NOTE | 2018-12-05 18:04 | PN ---
DATE: 12/05/2018 SUBJECTIVE: Patient seen, appears to be comfortable. Noted ID recommendation regarding 2 weeks of I V Cancidas and then Diflucan. The patient remains afebrile. Noted a drop in hemoglobin. Plan to tr ansfuse with dialysis. Case discussed with daughter at bedside. OBJECTIVE: VITAL SIGNS: Temperature 98.5, pulse 77, respirations 17, blood pressure 140/58, saturation 100%. GENERAL: No acute distress. HEENT: Normocephalic, atraumatic. The patient is pale. The patient responsive. CARDIOVASCULAR: S1, S2. Left IJ catheter in place. LUNGS: Clear. ABDOMEN: Soft, nontender. EXTREMITIES: No clubbing, cyanosis, or edema. LABORATORY DATA: White count 10.5, hemoglobin 7, hematocrit 23, platelet count of 270. Chemistry: Sodium 142, potassium 3.84 100, bicarbonate 29, BUN is 52, creatinine 0.75, glucose 103. MEDICATIONS: 1. Epogen. 2. Ferrous sulfate. 3. Norvasc. 4. Vancomycin. 5. Caspofungin 6. Prevacid. 7. Tylenol. 8. Merrem. 9. Kianna-Roque. 10. Vancomycin. 11. Robitussin. 12. Colace. 13. Morphine. 14. Albumin. 15. Lopressor. 16. Hydralazine. 17. [place]. 18. Depakote. 19. Zofran. 20. Tylenol. 21. Colace. 22. Milk of magnesia. 23. Folic acid. 24. DuoNeb. 25. Tradjenta. 26. Ativan 27. Seroquel. 28. Senna. ASSESSMENT AND PLAN: This is an 83-year-old Filipina female with history of end-stage renal disease, dementia, CKD and COPD who presented with right hand edema/hematoma status post I and D. Also was f ound to have pneumonia due to aspiration. Also, fungemia leakage due to line infection. 1. Respiratory. Stable. Finishing course of treatment for aspiration pneumonia. 2. Cardiovascular. Blood pressure better controlled today, observe. Titrate medication. Further f ollowup as needed. 3. End-stage renal disease. Dialysis per nephrology. 4. Anemia. Transfuse PRBC with dialysis. Monitor hemoglobin and hematocrit. No evidence of active bleeding. Continue Protonix. 5. Fungemia. Two weeks of IV caspofungin and Diflucan. 6. Generalized weakness, mostly in bed. Out of bed activity with physical therapy as tolerated. 7. Dysphagia. Continue G-tube feeding. 8. Diabetes mellitus. Controlled with Tradjenta and insulin sliding scale. 9. 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 Remains with 1:1 sitter and close monitoring. 10. Discussed with daughter at bedside regarding plan of care and possible discharge planning. Foll ow up all remaining blood cultures. If negative, maybe you can salvage the line as per ID recommenda tions. We will follow. Dictated By: DYLON HULL/MADAN Conf#: [id number] DID#: [id number]
[2018-12-05 20:00] VITALS: BP 158/67; RESP 18
[2018-12-06] VITALS (17 sets, daily range): BP systolic 114–172; BP diastolic 54–97; PULSE 83–126; RESP 17–22
[2018-12-06] MEDS: VALPROIC ACID LIQUID CUP 250 MG/5 ML CUP PO SCH ×3 (06:16→22:19)
[2018-12-06] MEDS: LINAGLIPTIN 5 MG TABLET GTB SCH (08:27)
[2018-12-06] MEDS: LANSOPRAZOLE 30 MG CAP GTB SCH (08:27)
[2018-12-06] MEDS: QUETIAPINE 25 MG TAB GTB SCH ×2 (08:28→21:04)
[2018-12-06] MEDS: FOLIC ACID 1 MG TAB GTB SCH (08:28)
[2018-12-06] MEDS: FERROUS SULFATE 60 MG/ML 5ML CUP GTB SCH ×2 (08:28→21:04)
[2018-12-06] MEDS: MULTIVIT/CA CARB/B CMPLX/FA TAB GTB SCH (08:28)
[2018-12-06] MEDS: SENNA TAB PO SCH ×2 (08:34→21:04)
[2018-12-06] MEDS: ACETAMINOPHEN 325 MG TAB PO PRN (08:34)
[2018-12-06] MEDS: DOCUSATE SODIUM 10 MG/ML (10ML CUP) GTB SCH (08:34)
[2018-12-06] MEDS: METOPROLOL 50 MG TAB GTB SCH ×2 (08:36→21:07)
[2018-12-06] MEDS: AMLODIPINE 5 MG TAB GTB SCH ×2 (09:00→21:06)
--- NOTE | 2018-12-06 11:12 | CONS ---
Assessment/Plan Assessment/Plan Hospital Course (Demo Recall) 1. End-stage renal disease on hemodialysis. 2. Gastrointestinal bleed with melena. 3. Hypertension. 4. Diabetes. 5. Right hand swelling, s/p I and D on 11/17/18 6. History of falls. 7. Vascular dementia. 8. History of sepsis with VRE. 9. Dysphagia, status post G-tube. 10. History of hip fracture. 11. Thrombocytopenia. 12. Atherosclerotic heart disease. 13. Pneumonia left side 14. Anemia Assessment/Plan (Daily) -avoid nephrotoxic drugs -HD MWFr -c/w epogen Consultation Date/Type/Reason Admit Date/Time Nov 16, 2018 at 05:51 Initial Consult Date 11/16/18 Type of Consult nephrology Requesting Provider: DYLON WALLS MD Date/Time of Note DATE: 12/06/18 TIME: 11:12 24 HR Interval Summary Constitutional: disoriented Exam/Review of Systems Exam Vitals Vital Signs Date Temp Pulse Resp B/P (MAP) Pulse Ox O2 O2 Flow FiO2 Time Delivery Rate 12/06/18 98.2 90 18 172/87 93 07:16 (115) 12/06/18 Room Air 02:00 12/03/18 2.0 13:20 Intake and Output 12/05/18 12/05/18 12/06/18 1515:00 23:00 07:00 IntakeIntake Total 270 ml 1220 ml 100 ml BalanceBalance 270 ml 1220 ml 100 ml Exam right chest Permcath Constitutional: alert Respiratory: clear to auscultation Cardiovascular: regular rate and rhythm Gastrointestinal: soft, surgical scars (G tube) Results Result Diagram: 12/06/18 0441 12/06/18 0441 Results 24hrs Laboratory Tests Test 12/06/18 04:41 12/06/18 08:22 White Blood Count 10.0 Red Blood Count 3.19 #L Hemoglobin 8.5 #L Hematocrit 27.3 #L Mean Corpuscular Volume 85.6 Mean Corpuscular Hemoglobin 26.6 L Mean Corpuscular Hemoglobin Concent 31.1 L Red Cell Distribution Width 16.5 H Platelet Count 329 # Mean Platelet Volume 11.1 H Immature Granulocytes % 0.900 H Neutrophils % 74.6 Lymphocytes % 10.0 L Monocytes % 8.3 Eosinophils % 5.6 Basophils % 0.6 Nucleated Red Blood Cells % 0.7 H Immature Granulocytes # 0.090 H Neutrophils # 7.4 Lymphocytes # 1.0 Monocytes # 0.8 Eosinophils # 0.6 H Basophils # 0.1 Nucleated Red Blood Cells # 0.1 H Sodium Level 142 Potassium Level 3.6 Chloride Level 101 Carbon Dioxide Level 28 Anion Gap 13 Blood Urea Nitrogen 68 H Creatinine 2.04 H Est Glomerular Filtrat Rate mL/min Glucose Level 150 Calcium Level 9.1 Phosphorus Level 4.8 Magnesium Level 2.4 Bedside Glucose 185 Medications Medication Current Medications IV Flush (NS 3 ml) 3 ml PER PROTOCOL IV ; Start 11/16/18 at 09:00 Ondansetron HCl (Zofran Inj) 4 mg Q6H PRN IV NAUSEA AND/OR VOMITING; Start 11/16/18 at 09:00 Acetaminophen (Tylenol Tab) 650 mg Q6H PRN PO PAIN LEVEL 1-3 OR FEVER Last administered on 12/06/18 08:34; Admin Dose 650 MG; Start 11/16/18 at 09:00 Docusate Sodium (Colace) 100 mg Q12H PRN PO CONSTIPATION; Start 11/16/18 at 09:00 Magnesium Hydroxide (Milk Of Mag) 30 ml DAILY PRN PO CONSTIPATION; Start 11/16/18 at 09:00 Folic Acid (Folic Acid) 1 mg DAILY GTB Last administered on 12/06/18 08:28; Admin Dose 1 MG; Start 11/16/18 at 09:00 Albuterol/ Ipratropium (Duoneb) 3 ml Q6 PRN HHN sob; Start 11/16/18 at 09:00 Linagliptin (Tradjenta) 5 mg DAILY GTB Last administered on 12/06/18 08:27; Admin Dose 5 MG; Start 11/16/18 at 09:00 Lorazepam (Ativan) 1 mg HS PRN GTB ANXIETY Last administered on 12/05/18 00:01; Admin Dose 1 MG; Start 11/16/18 at 09:00 Quetiapine Fumarate (Seroquel) 25 mg BID GTB Last administered on 12/06/18 08:28; Admin Dose 25 MG; Start 11/16/18 at 09:00 Senna (Senokot) 1 tab BID PO Last administered on 12/06/18 08:34; Admin Dose 1 TAB; Start 11/16/18 at 09:00 Valproate Sodium (Depakene Liquid Cup) 250 mg Q8 PO Last administered on 12/06/18 06:16; Admin Dose 250 MG; Start 11/16/18 at 14:00 Sodium Chloride (NS) -To prime the dialy... DIRECTED FOR HD PRN IV SBP<90; Start 11/16/18 at 15:00 Hydralazine HCl (Apresoline) 10 mg Q4H PRN IV ELEVATED BLOOD PRESSURE Last administered on 12/04/18 21:06; Admin Dose 10 MG; Start 11/17/18 at 10:30 Acetaminophen/ Hydrocodone Bitart ([place] (5/325)) 1 tab Q3H PRN PO MODERATE PAIN LEVEL 4-6 Last administered on 12/03/18 16:52; Admin Dose 1 TAB; Start 11/17/18 at 14:30 Hydralazine HCl (Apresoline) 25 mg Q8 PO Last administered on 12/06/18 06:23; Admin Dose 25 MG; Start 11/18/18 at 06:00 Metoprolol Tartrate (Lopressor) 50 mg BID GTB Last administered on 12/06/18 08:36; Admin Dose 50 MG; Start 11/18/18 at 09:00 Albumin Human 50 ml @ 100 mls/hr WITH DIALYSIS PRN IV SBP<90 Last administered on 11/22/18 11:25; Admin Dose 100 MLS/HR; Start 11/18/18 at 14:30 Morphine Sulfate (morphine) 6 mg Q4H PRN PO SEVERE PAIN LEVEL 7-10 Last administered on 11/27/18 00:35; Admin Dose 6 MG; Start 11/18/18 at 23:00 Docusate Sodium (Colace Liquid Cup) 100 mg DAILY GTB Last administered on 12/06/18 08:34; Admin Dose 100 MG; Start 11/19/18 at 09:30 Guaifenesin/ Dextromethorphan (Robitussin Dm Liquid Cup) 5 ml Q4H PRN PO cough Last administered on 11/23/18 21:50; Admin Dose 5 ML; Start 11/20/18 at 14:00 Vancomycin HCl (Vanco Iv Per Pharmacy) VANCOMYCIN PER PHARMACY PER PROTOCOL XX ; Start 11/23/18 at 12:00 Meropenem/Sodium Chloride 50 ml @ 100 mls/hr Q24H IVPB Last administered on 12/05/18 14:19; Admin Dose 100 MLS/HR; Start 11/24/18 at 13:00 Multivit/Ca Carb/ B Cmplx/FA/Prenat (Kianna-Roque) 1 tab DAILY GTB Last administered on 12/06/18 08:28; Admin Dose 1 TAB; Start 11/24/18 at 09:00 Lansoprazole (Prevacid) 30 mg DAILY GTB Last administered on 12/06/18 08:27; Admin Dose 30 MG; Start 11/26/18 at 09:00 Acetaminophen (Tylenol Supp) 650 mg Q4H PRN [place] MILD PAIN(1-3) OR TEMP>38C Last administered on 11/26/18 08:32; Admin Dose 650 MG; Start 11/26/18 at 08:30 Caspofungin 50 mg/ Sodium Chloride 250 ml @ 250 mls/hr Q24H IVPB Last administered on 12/05/18 12:17; Admin Dose 250 MLS/HR; Start 11/28/18 at 11:00 Vancomycin HCl 250 ml @ 125 mls/hr Q72H IVPB Last administered on 12/03/18 16:05; Admin Dose 125 MLS/HR; Start 12/03/18 at 16:00 Amlodipine Besylate (Norvasc) 5 mg BID GTB Last administered on 12/05/18 20:55; Admin Dose 5 MG; Start 12/04/18 at 21:00 Ferrous Sulfate (Feosol Liquid Cup) 300 mg BID GTB Last administered on 12/06/18 08:28; Admin Dose 300 MG; Start 12/05/18 at 09:30 Epoetin Michael (Epogen (Esrd)) 4,000 units MoWeFr@17 SC ; Start 12/06/18 at 17:00 FLAVIO CLAYTON Dec 06, 2018 11:12
[2018-12-06] MEDS: CASPOFUNGIN 50 MG in SOD CHLORIDE 0.9% 250 ML IVPB SCH (11:20)
[2018-12-06] MEDS: MEROPENEM 500MG/50 ML (PMX) 50 ML IVPB SCH (13:00)
--- NOTE | 2018-12-06 14:49 | PN ---
DATE: 12/06/2018 SUBJECTIVE: The patient was seen, currently receiving dialysis. Hemoglobin actually went up from 7 to 8.5 with that transfusion, so I ordered to hold transfusion which was planned for today. There is no need for transfusion as hemoglobin remained stable. OBJECTIVE: VITAL SIGNS: Temperature 97.5, pulse 86, respiration 18, blood pressure 157/61, saturation 96%. GENERAL: In no acute distress. HEENT: The patient is pale, frail. CARDIOVASCULAR: S1, S2. Left IJ PermCath. LUNGS: Otherwise clear. ABDOMEN: Soft, nontender. EXTREMITIES: No clubbing, cyanosis or edema. LABORATORY DATA: White count is 10, hemoglobin 8.5, hematocrit 27, platelet count 329, neutrophils 7 5%, lymphocytes 10%. Chemistry: Sodium 142, potassium 3.6, chloride 101, bicarbonate 28, BUN is 16, creatinine 2.04, glucose 150. Repeat blood cultures done on 12/03/2018, 12/01/2018 and 11/29/2018 a re all negative. MEDICATIONS: Include: 1. Epogen. 2. Ferrous sulfate. 3. Norvasc. 4. Vancomycin. 5. Caspofungin. 6. Prevacid. 7. Tylenol. 8. Merrem. 9. Kianna-Roque. 10. Robitussin. 11. Colace. 12. Morphine. 13. Lopressor. 14. Hydralazine. 15. [place]. 16. Depakote. 17. Zofran. 18. Tylenol. 19. Colace. 20. Milk of Magnesia. 21. Folic acid. 22. DuoNeb. 23. Tradjenta. 24. Ativan. 25. Seroquel. 26. Senna. ASSESSMENT AND PLAN: This is an 83-year-old [place]oth[place] female with history of end-stage renal disease, dementia, chronic kidney disease, chronic obstructive pulmonary disease, who presented with right lane nd edema hematoma status post incision and drainage. The patient was found to have pneumonia due to aspiration and also fungemia likely due to line infection. 1. Respiratory: Stable. We will repeat chest x-ray in the a.m. I believe the patient to finish a course of antibiotics for pneumonia today as per ID instructions. 2. Cardiovascular: Vitals remain stable. Currently being dialyzed. 3. End-stage renal disease. Dialysis every Thursday, Thursday and Thursday. 4. Anemia. Epogen and blood products p.r.n. 5. Fungemia. Plan for 2 weeks of IV caspofungin and then Diflucan. We will discuss with case manag er discharge planning with the above antifungals. 6. Generalized weakness, mostly in bed. Out of bed activity with physical therapy as tolerated. 7. Dysphagia. Continue G-tube feeding. 8. Diabetes mellitus on Tradjenta and insulin sliding scale. 9. Psychiatric disorder and danger to self. Remains a 1:1 sitter with close monitoring. We will fo llow. Dictated By: DYLON HULL/NTS Conf#: [id number] DID#: [id number] CC: CHRISS WELCH MD;*End*
[2018-12-06] MEDS: HYDROCODONE/APAP (5/325) TAB PO PRN (15:38)
--- NOTE | 2018-12-06 16:41 | CONS ---
Assessment/Plan Assessment/Plan Hospital Course (Demo Recall) 1300 No acute changes overnight patient looks comfortable, in HD, no fevers. No IV access Microbiology: Blood culture repeated on November 29 grew Dominique glabrata blood cultures since December 01 that were drawn from permacath negative blood culture on December 03 preliminary negative Antimicrobials: Cancidas Indwelling: Left chest permacath, PEG Physical examination: Chronically ill-appearing elderly woman who is awake, confused, in no distress. Head atraumatic normocephalic. Neck is supple. Chest rise symmetrical breath sounds diminished bases. Heart: S1-S2. Abdomen soft bowel sounds present, right upper extremity Armani wrapped Assessment: 1. Sepsis with fungemia ?line 2. Healthcare associated pneumonia, possibly aspiration 3. Right hand hematoma, status post I&D 11/17/18 4. Status post VRE bacteremia, status post new Pcath 5. End-stage renal disease, hemodialysis dependent 6. Dementia 7. Failure to thrive 8. Diabetes 9. Anemia Plan: Clinically stable, blood cultures sent from hemodialysis catheter remain negative, we will discontinue antibiotics, change Cancidas to Vfend==> last dose on December 16 given positive cultures on November 29. After that recommend to keep on oral fluconazole for another 2 weeks. Will also send urine for cx Consultation Date/Type/Reason Admit Date/Time Nov 16, 2018 at 05:51 Initial Consult Date 11/16/18 Type of Consult id Requesting Provider: DYLON WALLS MD Date/Time of Note DATE: 12/06/18 TIME: 16:39 Exam/Review of Systems Exam Vitals Vital Signs Date Temp Pulse Resp B/P (MAP) Pulse Ox O2 O2 Flow FiO2 Time Delivery Rate 12/06/18 114 15:40 12/06/18 97.5 18 157/61 96 13:55 (93) 12/06/18 Room Air 13:37 12/03/18 2.0 13:20 Intake and Output 12/05/18 12/05/18 12/06/18 1515:00 23:00 07:00 IntakeIntake Total 270 ml 1220 ml 100 ml BalanceBalance 270 ml 1220 ml 100 ml Results Result Diagram: 12/06/18 0441 12/06/18 0441 Results 24hrs Laboratory Tests Test 12/06/18 04:41 12/06/18 08:22 White Blood Count 10.0 Red Blood Count 3.19 #L Hemoglobin 8.5 #L Hematocrit 27.3 #L Mean Corpuscular Volume 85.6 Mean Corpuscular Hemoglobin 26.6 L Mean Corpuscular Hemoglobin Concent 31.1 L Red Cell Distribution Width 16.5 H Platelet Count 329 # Mean Platelet Volume 11.1 H Immature Granulocytes % 0.900 H Neutrophils % 74.6 Lymphocytes % 10.0 L Monocytes % 8.3 Eosinophils % 5.6 Basophils % 0.6 Nucleated Red Blood Cells % 0.7 H Immature Granulocytes # 0.090 H Neutrophils # 7.4 Lymphocytes # 1.0 Monocytes # 0.8 Eosinophils # 0.6 H Basophils # 0.1 Nucleated Red Blood Cells # 0.1 H Sodium Level 142 Potassium Level 3.6 Chloride Level 101 Carbon Dioxide Level 28 Anion Gap 13 Blood Urea Nitrogen 68 H Creatinine 2.04 H Est Glomerular Filtrat Rate mL/min Glucose Level 150 Calcium Level 9.1 Phosphorus Level 4.8 Magnesium Level 2.4 Bedside Glucose 185 Medications Medication Current Medications IV Flush (NS 3 ml) 3 ml PER PROTOCOL IV ; Start 11/16/18 at 09:00 Ondansetron HCl (Zofran Inj) 4 mg Q6H PRN IV NAUSEA AND/OR VOMITING; Start 11/16/18 at 09:00 Acetaminophen (Tylenol Tab) 650 mg Q6H PRN PO PAIN LEVEL 1-3 OR FEVER Last administered on 12/06/18at 08:34; Admin Dose 650 MG; Start 11/16/18 at 09:00 Docusate Sodium (Colace) 100 mg Q12H PRN PO CONSTIPATION; Start 11/16/18 at 09:00 Magnesium Hydroxide (Milk Of Mag) 30 ml DAILY PRN PO CONSTIPATION; Start 11/16/18 at 09:00 Folic Acid (Folic Acid) 1 mg DAILY GTB Last administered on 12/06/18at 08:28; Admin Dose 1 MG; Start 11/16/18 at 09:00 Albuterol/ Ipratropium (Duoneb) 3 ml Q6 PRN HHN sob; Start 11/16/18 at 09:00 Linagliptin (Tradjenta) 5 mg DAILY GTB Last administered on 12/06/18at 08:27; Admin Dose 5 MG; Start 11/16/18 at 09:00 Lorazepam (Ativan) 1 mg HS PRN GTB ANXIETY Last administered on 12/05/18 00:01; Admin Dose 1 MG; Start 11/16/18 at 09:00 Quetiapine Fumarate (Seroquel) 25 mg BID GTB Last administered on 12/06/18 08:28; Admin Dose 25 MG; Start 11/16/18 at 09:00 Senna (Senokot) 1 tab BID PO Last administered on 12/06/18 08:34; Admin Dose 1 TAB; Start 11/16/18 at 09:00 Valproate Sodium (Depakene Liquid Cup) 250 mg Q8 PO Last administered on 12/06/18 15:08; Admin Dose 250 MG; Start 11/16/18 at 14:00 Sodium Chloride (NS) -To prime the dialy... DIRECTED FOR HD PRN IV SBP<90; Start 11/16/18 at 15:00 Hydralazine HCl (Apresoline) 10 mg Q4H PRN IV ELEVATED BLOOD PRESSURE Last administered on 12/04/18 21:06; Admin Dose 10 MG; Start 11/17/18 at 10:30 Acetaminophen/ Hydrocodone Bitart ([place] (5/325)) 1 tab Q3H PRN PO MODERATE PAIN LEVEL 4-6 Last administered on 12/06/18 15:38; Admin Dose 1 TAB; Start 11/17/18 at 14:30 Hydralazine HCl (Apresoline) 25 mg Q8 PO Last administered on 12/06/18 06:23; Admin Dose 25 MG; Start 11/18/18 at 06:00 Metoprolol Tartrate (Lopressor) 50 mg BID GTB Last administered on 12/06/18 08:36; Admin Dose 50 MG; Start 11/18/18 at 09:00 Albumin Human 50 ml @ 100 mls/hr WITH DIALYSIS PRN IV SBP<90 Last administered on 11/22/18 11:25; Admin Dose 100 MLS/HR; Start 11/18/18 at 14:30 Morphine Sulfate (morphine) 6 mg Q4H PRN PO SEVERE PAIN LEVEL 7-10 Last administered on 11/27/18 00:35; Admin Dose 6 MG; Start 11/18/18 at 23:00 Docusate Sodium (Colace Liquid Cup) 100 mg DAILY GTB Last administered on 12/06/18 08:34; Admin Dose 100 MG; Start 11/19/18 at 09:30 Guaifenesin/ Dextromethorphan (Robitussin Dm Liquid Cup) 5 ml Q4H PRN PO cough Last administered on 11/23/18 21:50; Admin Dose 5 ML; Start 11/20/18 at 14:00 Multivit/Ca Carb/ B Cmplx/FA/Prenat ([place]-Ro[place]) 1 tab DAILY GTB Last administered on 12/06/18 08:28; Admin Dose 1 TAB; Start 11/24/18 at 09:00 Lansoprazole (Prevacid) 30 mg DAILY GTB Last administered on 12/06/18 08:27; Admin Dose 30 MG; Start 11/26/18 at 09:00 Acetaminophen (Tylenol Supp) 650 mg Q4H PRN [place] MILD PAIN(1-3) OR TEMP>38C Last administered on 11/26/18 08:32; Admin Dose 650 MG; Start 11/26/18 at 08:30 Caspofungin 50 mg/ Sodium Chloride 250 ml @ 250 mls/hr Q24H IVPB Last administered on 12/06/18 11:20; Admin Dose 250 MLS/HR; Start 11/28/18 at 11:00 Amlodipine Besylate (Norvasc) 5 mg BID GTB Last administered on 12/05/18 20:55; Admin Dose 5 MG; Start 12/04/18 at 21:00 Ferrous Sulfate (Feosol Liquid Cup) 300 mg BID GTB Last administered on 12/06/18 08:28; Admin Dose 300 MG; Start 12/05/18 at 09:30 Epoetin Michael (Epogen (Esrd)) 4,000 units MoWeFr@17 SC ; Start 12/06/18 at 17:00 PHYLICIA HOLCOMB NP Dec 06, 2018 16:41
[2018-12-06] MEDS: EPOETIN 4000 UNITS/1 ML INJ (ESRD) SC SCH (17:59)
--- NOTE | 2018-12-06 20:28 | CONS ---
Consult Date/Type/Reason Admit Date/Time Nov 16, 2018 at 05:51 Initial Consult Date 11/16/18 Type of Consultation: cv Requesting Provider: DYLON WALLS MD Date/Time of Note DATE: 12/06/18 TIME: 20:27 Subjective Cardiology follow up note Sl DW/ Staff pt is STILL CONFUSED and intermittently agitated no report of any chest pain or pressure or palpitations but pt is a very poor historian s/p I/D 11/17 EGD 11.18.18 O: General: Elderly frail male in no acute distress HEENT: NC/AT. pupils are equal. round. NECK: NO JVD. no stridor. CV: RRR. systolic murmur; no gallop or rubs. PULM: no wheezing or rhonchi. GI: SOFT, NT, ND, no rebound or guarding neuro: awake Psych: confused rectal: deferred CXR 11/22: 1. Left lung interstitial opacities may reflect edema or pneumonia. Findings are new when compared to the prior examination. 2. Mild cardiomegaly and aortic atherosclerosis. 3. Left chest Perma-Cath with tip in the lower SVC. review of old chart shows ECHO done Oct 2018: Normal left ventricular systolic function. Normal left ventricular cavity size. Moderate concentric left ventricular hypertrophy. Ejection fraction is visually estimated at 65 %. Abnormal Diastolic Function. Mitral valve leaflets appear moderately thickened. Moderate mitral annular calcification. Trace mitral regurgitation. Aortic valve not well visualized. No hemodynamically significant aortic stenosis by doppler. Aortic sclerosis without significant stenosis. Aortic cusps appear mildly calcified. Mild to moderate aortic valve r egurgitation. Estimated peak PA systolic pressure 40 mmHg. Tricuspid valve appears moderately thickened. There is mild tricuspid regurgitation. Objective Vitals Vital Signs Date Temp Pulse Resp B/P (MAP) Pulse Ox O2 O2 Flow FiO2 Time Delivery Rate 12/06/18 98.8 111 18 135/66 95 19:14 (89) 12/06/18 Nasal 2.0 16:39 Cannula Intake and Output 12/05/18 12/05/18 12/06/18 1515:00 23:00 07:00 IntakeIntake Total 270 ml 1220 ml 100 ml BalanceBalance 270 ml 1220 ml 100 ml Results/Medications Result Diagram: 12/06/18 0441 12/06/18 0441 Results 24 hrs Laboratory Tests Test 12/06/18 04:41 12/06/18 08:22 White Blood Count 10.0 Red Blood Count 3.19 #L Hemoglobin 8.5 #L Hematocrit 27.3 #L Mean Corpuscular Volume 85.6 Mean Corpuscular Hemoglobin 26.6 L Mean Corpuscular Hemoglobin Concent 31.1 L Red Cell Distribution Width 16.5 H Platelet Count 329 # Mean Platelet Volume 11.1 H Immature Granulocytes % 0.900 H Neutrophils % 74.6 Lymphocytes % 10.0 L Monocytes % 8.3 Eosinophils % 5.6 Basophils % 0.6 Nucleated Red Blood Cells % 0.7 H Immature Granulocytes # 0.090 H Neutrophils # 7.4 Lymphocytes # 1.0 Monocytes # 0.8 Eosinophils # 0.6 H Basophils # 0.1 Nucleated Red Blood Cells # 0.1 H Sodium Level 142 Potassium Level 3.6 Chloride Level 101 Carbon Dioxide Level 28 Anion Gap 13 Blood Urea Nitrogen 68 H Creatinine 2.04 H Est Glomerular Filtrat Rate mL/min Glucose Level 150 Calcium Level 9.1 Phosphorus Level 4.8 Magnesium Level 2.4 Bedside Glucose 185 Home Meds Reported Medications Sennosides* (Senna Lax*) 8.6 Mg Tablet, 1 TAB PO BID, TAB 11/16/18 Sevelamer Carbonate* (Renvela*) 0.8 Gm Powd.pack, 0.8 GM PO WITH MEALS, PACKET 11/16/18 Lansoprazole* (Lansoprazole*) 30 Mg Capsule.dr, 30 MG PO QAM, CAP 11/16/18 Hydralazine Hcl* (Hydralazine Hcl*) 25 Mg Tab, 25 MG PO Q8, #90 TAB 11/16/18 Ferrous Sulfate* (Ferrous Sulfate*) 325 Mg Tabec, 325 MG PO BID for anemia, TAB 11/16/18 Valproate Sodium (Valproic Acid) 250 Mg/5 Ml Solution, 250 MG PO Q8, ML 11/16/18 Insulin Aspart* (Novolog Insulin Pen*) 100 Unit/Ml Soln, 0 SC .SLIDING SCALE AC, EA IF BS 160-200=2 UNITS,201-250=4 UNITS,251-300=8 UNITS,301-350=12 UNITS;351-400=16 UNITS THEN CALL 10/16/18 Ondansetron Hcl* (Zofran*) 4 Mg Tab, 4 MG GTB Q4H PRN for NAUSEA AND OR VOMITING, TAB 10/16/18 Linagliptin (TRADJENTA) 5 Mg Tablet, 5 MG GTB DAILY, TAB 10/16/18 Quetiapine Fumarate* (Seroquel*) 25 Mg Tablet, 25 MG GTB BID, #60 TAB 10/16/18 [Nephro-Roque] No Conflict Check, 0.8 MG GTB DAILY 10/16/18 Polyethylene Glycol* (Miralax*) 17 Gm Powd.pack, 17 GM GTB Q24H, #30 PACKET 10/16/18 Metoprolol Tartrate* (Lopressor*) 50 Mg Tab, 50 MG GTB DAILY, #60 TAB Q MON,WED,FRI,SUN,HOLD FOR SBP<110 OR NE<60 10/16/18 Metoprolol Tartrate* (Lopressor*) 50 Mg Tab, 50 MG GTB BID, #60 TAB QTUE,ANDREW,SAT,HOLD FOR SBP<110 OR NE<60 10/16/18 Linaclotide (LINZESS) 145 Mcg Capsule, 145 MCG GTB DAILY, #30 CAP 10/16/18 Ipratropium-Albuterol (Ipratropium-Albuterol) 0.5-3 Mg/3 Ml Ampul.neb, 3 ML IN HALATION Q6, #30 VIAL FOR 14 DAYS,STOP DATE 10/17/18 10/16/18 Hydralazine Hcl* (Hydralazine Hcl*) 25 Mg Tab, 25 MG GTB DAILY, #60 TAB Q TUE,ANDREW,SAT,HOLD IF SBP<110 OR NE<60 10/16/18 Folic Acid* (Folic Acid*) 1 Mg Tablet, 1 MG GTB DAILY, TAB 10/16/18 Docusate Sodium* (Colace*) 100 Mg Capsule, 100 MG GTB DAILY, #30 CAP 10/16/18 Lorazepam* (Lorazepam*) 1 Mg Tablet, 1 MG GTB HS PRN for ANXIETY, #30 TAB Q TUE,ANDREW,SAT 10/16/18 Amlodipine Besylate* (Norvasc*) 5 Mg Tablet, 5 MG GTB BID, TAB TAKE Q TUE,ANDREW,SAT FOR HTN, HOLD FOR SBP<110 OR NE<60 10/16/18 Acetaminophen* (Acetaminophen*) 650 Mg Tablet, 650 MG GTB Q6H PRN for PAIN LEVEL 1-08/18, #30 TAB 10/16/18 Medications Current Medications IV Flush (NS 3 ml) 3 ml PER PROTOCOL IV ; Start 11/16/18 at 09:00 Ondansetron HCl (Zofran Inj) 4 mg Q6H PRN IV NAUSEA AND/OR VOMITING; Start 11/16/18 at 09:00 Acetaminophen (Tylenol Tab) 650 mg Q6H PRN PO PAIN LEVEL 1-3 OR FEVER Last adm inistered on 12/06/18 08:34; Admin Dose 650 MG; Start 11/16/18 at 09:00 Docusate Sodium (Colace) 100 mg Q12H PRN PO CONSTIPATION; Start 11/16/18 at 09:00 Magnesium Hydroxide (Milk Of Mag) 30 ml DAILY PRN PO CONSTIPATION; Start 11/16/18 at 09:00 Folic Acid (Folic Acid) 1 mg DAILY GTB Last administered on 12/06/18 08:28; Admin Dose 1 MG; Start 11/16/18 at 09:00 Albuterol/ Ipratropium (Duoneb) 3 ml Q6 PRN HHN sob; Start 11/16/18 at 09:00 Linagliptin (Tradjenta) 5 mg DAILY GTB Last administered on 12/06/18 08:27; Admin Dose 5 MG; Start 11/16/18 at 09:00 Lorazepam (Ativan) 1 mg HS PRN GTB ANXIETY Last administered on 12/05/18 00:01; Admin Dose 1 MG; Start 11/16/18 at 09:00 Quetiapine Fumarate (Seroquel) 25 mg BID GTB Last administered on 12/06/18 08:28; Admin Dose 25 MG; Start 11/16/18 at 09:00 Senna (Senokot) 1 tab BID PO Last administered on 12/06/18 08:34; Admin Dose 1 TAB; Start 11/16/18 at 09:00 Valproate Sodium (Depakene Liquid Cup) 250 mg Q8 PO Last administered on 12/06/18 15:08; Admin Dose 250 MG; Start 11/16/18 at 14:00 Sodium Chloride (NS) -To prime the dialy... DIRECTED FOR HD PRN IV SBP<90; Start 11/16/18 at 15:00 Hydralazine HCl (Apresoline) 10 mg Q4H PRN IV ELEVATED BLOOD PRESSURE Last administered on 12/04/18 21:06; Admin Dose 10 MG; Start 11/17/18 at 10:30 Acetaminophen/ Hydrocodone Bitart ([place] (5/325)) 1 tab Q3H PRN PO MODERATE PAIN LEVEL 4-6 Last administered on 12/06/18 15:38; Admin Dose 1 TAB; Start 11/17/18 at 14:30 Hydralazine HCl (Apresoline) 25 mg Q8 PO Last administered on 12/06/18 06:23; Admin Dose 25 MG; Start 11/18/18 at 06:00 Metoprolol Tartrate (Lopressor) 50 mg BID GTB Last administered on 12/06/18 08:36; Admin Dose 50 MG; Start 11/18/18 at 09:00 Albumin Human 50 ml @ 100 mls/hr WITH DIALYSIS PRN IV SBP<90 Last administered on 11/22/18 11:25; Admin Dose 100 MLS/HR; Start 11/18/18 at 14:30 Morphine Sulfate (morphine) 6 mg Q4H PRN PO SEVERE PAIN LEVEL 7-10 Last administered on 11/27/18 00:35; Admin Dose 6 MG; Start 11/18/18 at 23:00 Docusate Sodium (Colace Liquid Cup) 100 mg DAILY GTB Last administered on 12/06/18 08:34; Admin Dose 100 MG; Start 11/19/18 at 09:30 Guaifenesin/ Dextromethorphan (Robitussin Dm Liquid Cup) 5 ml Q4H PRN PO cough Last administered on 11/23/18 21:50; Admin Dose 5 ML; Start 11/20/18 at 14:00 Multivit/Ca Carb/ B Cmplx/FA/Prenat (Kianna-Roque) 1 tab DAILY GTB Last administered on 12/06/18 08:28; Admin Dose 1 TAB; Start 11/24/18 at 09:00 Lansoprazole (Prevacid) 30 mg DAILY GTB Last administered on 12/06/18 08:27; Admin Dose 30 MG; Start 11/26/18 at 09:00 Acetaminophen (Tylenol Supp) 650 mg Q4H PRN NE MILD PAIN(1-3) OR TEMP>38C Last administered on 11/26/18 08:32; Admin Dose 650 MG; Start 11/26/18 at 08:30 Amlodipine Besylate (Norvasc) 5 mg BID GTB Last administered on 12/05/18 20:55; Admin Dose 5 MG; Start 12/04/18 at 21:00 Ferrous Sulfate (Feosol Liquid Cup) 300 mg BID GTB Last administered on 12/06/18at 08:28; Admin Dose 300 MG; Start 12/05/18 at 09:30 Epoetin Michael (Epogen (Esrd)) 4,000 units MoWeFr@17 SC Last administered on 12/06/18 17:59; Admin Dose 4,000 UNITS; Start 12/06/18 at 17:00 Voriconazole (Vfend) 200 mg BID PO ; Start 12/06/18 at 21:00 Assessment/Plan Hospital Course (Demo Recall) Cardiovascular preop evaluation Right hand hematoma: Status post IND now Renal failure on dialysis Hypertension Dementia Anemia Possible GI bleed: Status post EGD AI Recommendations: transfusion with HD prn Dialysis as per renal team Neuro workup and treatment as per internal medicine Thank you for his referral. We will continue to follow along with you as needed basis CHRISTEN ESCOBEDO MD [facility] CHRISTEN ESCOBEDO MD Dec 06, 2018 20:28
[2018-12-06] MEDS: VORICONAZOLE 200 MG TAB PO SCH (21:04)
[2018-12-07 02:17] VITALS: BP 158/73; RESP 20
[2018-12-07] MEDS: VALPROIC ACID LIQUID CUP 250 MG/5 ML CUP PO SCH ×3 (05:32→23:56)
[2018-12-07 07:27] VITALS: BP 183/78; PULSE 87; RESP 18
[2018-12-07] MEDS: DOCUSATE SODIUM 10 MG/ML (10ML CUP) GTB SCH (09:23)
[2018-12-07] MEDS: FERROUS SULFATE 60 MG/ML 5ML CUP GTB SCH ×2 (09:23→23:55)
[2018-12-07] MEDS: FOLIC ACID 1 MG TAB GTB SCH (09:23)
[2018-12-07] MEDS: AMLODIPINE 5 MG TAB GTB SCH ×2 (09:24→23:56)
[2018-12-07] MEDS: METOPROLOL 50 MG TAB GTB SCH ×2 (09:24→23:57)
[2018-12-07] MEDS: LANSOPRAZOLE 30 MG CAP GTB SCH (09:24)
[2018-12-07] MEDS: MULTIVIT/CA CARB/B CMPLX/FA TAB GTB SCH (09:24)
[2018-12-07] MEDS: SENNA TAB PO SCH ×2 (09:25→23:58)
[2018-12-07] MEDS: LINAGLIPTIN 5 MG TABLET GTB SCH (09:25)
[2018-12-07] MEDS: VORICONAZOLE 200 MG TAB PO SCH ×2 (09:25→23:55)
[2018-12-07] MEDS: QUETIAPINE 25 MG TAB GTB SCH (09:25)
[2018-12-07 09:27] VITALS: BP 165/89; PULSE 88; RESP 18
[2018-12-07 13:40] VITALS: BP 148/68; PULSE 74; RESP 18
--- NOTE | 2018-12-07 14:38 | PN ---
DATE: 12/07/2018 SUBJECTIVE: The patient was seen. Urine culture done on 12/06/2018 now shows yeast greater than 100 ,000, but repeat blood cultures are negative. ID is following and Cancidas to be changed to Vfend an d then transition to oral Diflucan for 2 weeks. PHYSICAL EXAMINATION: VITAL SIGNS: Temperature 97.7, pulse 74, respirations 18, blood pressure 140/68, saturation 100%. GENERAL: The patient is resting comfortably. HEENT: Pale. CARDIOVASCULAR: S1, S2, regular rate. LUNGS: Clear. ABDOMEN: Soft, nontender. EXTREMITIES: No clubbing, +1 edema. SKIN: The patient with a left IJ PermCath and G-tube in place. LABORATORY DATA: White count 12, hemoglobin 8.5, hematocrit 27, platelet count of 390, neutrophils 8 5%, lymphocytes 9%. Chemistry: Sodium 140, potassium 3.7, chloride 100, bicarbonate 30, BUN is 40, creatinine 1.32 and glucose of 127. Urine culture on 12/06/2018 shows yeast. MEDICATIONS: Reviewed which include: 1. Vfend. 2. Epogen. 3. Ferrous sulfate. 4. Norvasc. 5. Prevacid. 6. Tylenol. 7. Kianna-Roque. 8. Robitussin. 9. Colace. 10. Morphine. 11. Albumin. 12. Lopressor. 13. Hydralazine. 14. Moro. 15. Depakote. 16. Zofran. 17. Milk of Magnesia. 18. Folic acid. 19. DuoNeb. 20. Tradjenta. 21. Ativan. 22. Seroquel. 23. Senna. ASSESSMENT AND PLAN: This is an 83-year-old [place] female with history of end-stage renal disease, dementia, chronic kidney disease, chronic obstructive pulmonary disease, who presented with right lane nd edema and hematoma status post incision and drainage, now also was found to have pneumonia due to aspiration and fungemia and yeast in the urine. 1. Respiratory. Chest x-ray done shows bilateral upper and lower lobe infiltrates, appear to be inc reased. We would continue with dialysis and antibiotics per ID. 2. Fungemia, now on Vfend. Monitor WBC. It is currently trending up. 3. End-stage renal disease, dialysis 3 times a week. Next dialysis is tomorrow. 4. Generalized weakness, in bed with risk of fall. Continue 1:1 sitter. 5. Dysphagia, on G-tube feeding. 6. Anemia. Transfuse p.r.n., Epogen and blood products as needed. 7. Cardiovascular: Noted slightly hypertensive. We will titrate medications up. We will increase hydralazine to 50 mg 3 times a day. operations research manager is to assist with replacement with above antibiotics and antifungals. We will follow. Dictated By: DYLON HULL/NTS Conf#: [id number] DID#: [id number] CC: CHRISS WELCH MD;*EndCC*
--- NOTE | 2018-12-07 15:03 | CONS ---
Assessment/Plan Assessment/Plan Hospital Course (Demo Recall) No acute changes overnight patient looks comfortable, no fevers Microbiology: Blood culture repeated on November 29 grew Dominique glabrata blood cultures since December 01 that were drawn from permacath negative blood culture on December 03 negative, urine culture growing yeast Antimicrobials: Vfend Indwelling: Left chest permacath, PEG Physical examination: Chronically ill-appearing elderly woman who is awake, confused, in no distress. Head atraumatic normocephalic. Neck is supple. C hest rise symmetrical breath sounds diminished bases. Heart: S1-S2. Abdomen soft bowel sounds present, right upper extremity Armani wrapped Assessment: 1. Sepsis with fungemia secondary to urinary tract infection 2. Healthcare associated pneumonia, possibly aspiration 3. Right hand hematoma, status post I&D 11/17/18 4. Status post VRE bacteremia, status post new Pcath 5. End-stage renal disease, hemodialysis dependent 6. Dementia 7. Failure to thrive 8. Diabetes 9. Anemia Plan: Clinically stable, blood cultures sent from hemodialysis catheter remain negative, urine culture growing yeast, patient is on Vfend==> last dose on December 16. We will will continue doing bladder scan and straight caths as needed Consultation Date/Type/Reason Admit Date/Time Nov 16, 2018 at 05:51 Initial Consult Date 11/16/18 Type of Consult id Requesting Provider: DYLON WALLS MD Date/Time of Note DATE: 12/07/18 TIME: 15:01 Exam/Review of Systems Exam Vitals Vital Signs Date Temp Pulse Resp B/P (MAP) Pulse Ox O2 O2 Flow FiO2 Time Delivery Rate 12/07/18 97.7 74 18 148/68 100 13:40 (94) 12/06/18 Nasal 2.0 16:39 Cannula Intake and Output 12/06/18 12/06/18 12/07/18 1515:00 23:00 07:00 IntakeIntake Total 1200 ml 50 ml OutputOutput Total 0 ml 1700 ml BalanceBalance 0 ml -500 ml 50 ml Results Result Diagram: 12/07/18 0429 12/07/18 0429 Results 24hrs Laboratory Tests Test 12/07/18 04:29 12/07/18 09:21 White Blood Count 12.0 H Red Blood Count 3.17 L Hemoglobin 8.5 L Hematocrit 26.9 L Mean Corpuscular Volume 84.9 Mean Corpuscular Hemoglobin 26.8 L Mean Corpuscular Hemoglobin Concent 31.6 L Red Cell Distribution Width 16.3 H Platelet Count 319 Mean Platelet Volume 11.7 H Immature Granulocytes % 1.000 H Neutrophils % 84.7 H Lymphocytes % 8.5 L Monocytes % 5.0 Eosinophils % 0.5 Basophils % 0.3 Nucleated Red Blood Cells % 0.3 H Immature Granulocytes # 0.120 H Neutrophils # 10.1 H Lymphocytes # 1.0 Monocytes # 0.6 Eosinophils # 0.1 Basophils # 0.0 Nucleated Red Blood Cells # 0.0 Sodium Level 140 Potassium Level 3.7 Chloride Level 100 Carbon Dioxide Level 30 Anion Gap 10 Blood Urea Nitrogen 40 #H Creatinine 1.32 H Est Glomerular Filtrat Rate mL/min Glucose Level 127 Calcium Level 9.2 Phosphorus Level 3.7 Magnesium Level 2.3 Bedside Glucose 196 Medications Medication Current Medications IV Flush (NS 3 ml) 3 ml PER PROTOCOL IV ; Start 11/16/18 at 09:00 Ondansetron HCl (Zofran Inj) 4 mg Q6H PRN IV NAUSEA AND/OR VOMITING; Start 11/16/18 at 09:00 Acetaminophen (Tylenol Tab) 650 mg Q6H PRN PO PAIN LEVEL 1-3 OR FEVER Last administered on 12/06/18at 08:34; Admin Dose 650 MG; Start 11/16/18 at 09:00 Docusate Sodium (Colace) 100 mg Q12H PRN PO CONSTIPATION; Start 11/16/18 at 09:00 Magnesium Hydroxide (Milk Of Mag) 30 ml DAILY PRN PO CONSTIPATION; Start 11/16/18 at 09:00 Folic Acid (Folic Acid) 1 mg DAILY GTB Last administered on 12/07/18at 09:23; Admin Dose 1 MG; Start 11/16/18 at 09:00 Albuterol/ Ipratropium (Duoneb) 3 ml Q6 PRN HHN sob; Start 11/16/18 at 09:00 Linagliptin (Tradjenta) 5 mg DAILY GTB Last administered on 12/07/18at 09:25; Admin Dose 5 MG; Start 11/16/18 at 09:00 Lorazepam (Ativan) 1 mg HS PRN GTB ANXIETY Last administered on 12/05/18at 00:01; Admin Dose 1 MG; Start 11/16/18 at 09:00 Quetiapine Fumarate (Seroquel) 25 mg BID GTB Last administered on 12/07/18 09:25; Admin Dose 25 MG; Start 11/16/18 at 09:00 Senna (Senokot) 1 tab BID PO Last administered on 12/07/18 09:25; Admin Dose 1 TAB; Start 11/16/18 at 09:00 Valproate Sodium (Depakene Liquid Cup) 250 mg Q8 PO Last administered on 12/07/18 05:32; Admin Dose 250 MG; Start 11/16/18 at 14:00 Sodium Chloride (NS) -To prime the dialy... DIRECTED FOR HD PRN IV SBP<90; Start 11/16/18 at 15:00 Hydralazine HCl (Apresoline) 10 mg Q4H PRN IV ELEVATED BLOOD PRESSURE Last administered on 12/04/18 21:06; Admin Dose 10 MG; Start 11/17/18 at 10:30 Acetaminophen/ Hydrocodone Bitart ([place] (5/325)) 1 tab Q3H PRN PO MODERATE PAIN LEVEL 4-6 Last administered on 12/06/18 15:38; Admin Dose 1 TAB; Start 11/17/18 at 14:30 Metoprolol Tartrate (Lopressor) 50 mg BID GTB Last administered on 12/07/18 09:24; Admin Dose 50 MG; Start 11/18/18 at 09:00 Albumin Human 50 ml @ 100 mls/hr WITH DIALYSIS PRN IV SBP<90 Last administered on 11/22/18 11:25; Admin Dose 100 MLS/HR; Start 11/18/18 at 14:30 Morphine Sulfate (morphine) 6 mg Q4H PRN PO SEVERE PAIN LEVEL 7-10 Last administered on 11/27/18 00:35; Admin Dose 6 MG; Start 11/18/18 at 23:00 Docusate Sodium (Colace Liquid Cup) 100 mg DAILY GTB Last administered on 12/07/18 09:23; Admin Dose 100 MG; Start 11/19/18 at 09:30 Guaifenesin/ Dextromethorphan (Robitussin Dm Liquid Cup) 5 ml Q4H PRN PO cough Last administered on 11/23/18 21:50; Admin Dose 5 ML; Start 11/20/18 at 14:00 Multivit/Ca Carb/ B Cmplx/FA/Prenat (Kianna-Roque) 1 tab DAILY GTB Last administered on 12/07/18 09:24; Admin Dose 1 TAB; Start 11/24/18 at 09:00 Lansoprazole (Prevacid) 30 mg DAILY GTB Last administered on 12/07/18 09:24; Admin Dose 30 MG; Start 11/26/18 at 09:00 Acetaminophen (Tylenol Supp) 650 mg Q4H PRN [place] MILD PAIN(1-3) OR TEMP>38C Last administered on 11/26/18 08:32; Admin Dose 650 MG; Start 11/26/18 at 08:30 Amlodipine Besylate (Norvasc) 5 mg BID GTB Last administered on 12/07/18 09:24; Admin Dose 5 MG; Start 12/04/18 at 21:00 Ferrous Sulfate (Feosol Liquid Cup) 300 mg BID GTB Last administered on 12/07/18 09:23; Admin Dose 300 MG; Start 12/05/18 at 09:30 Epoetin Michael (Epogen (Esrd)) 4,000 units MoWeFr@17 SC Last administered on 12/06/18 17:59; Admin Dose 4,000 UNITS; Start 12/06/18 at 17:00 Voriconazole (Vfend) 200 mg BID PO Last administered on 12/07/18 09:25; Admin Dose 200 MG; Start 12/06/18 at 21:00 Hydralazine HCl (Apresoline) 50 mg Q8 PO ; Start 12/07/18 at 22:00 PHYLICIA HOLCOMB NP Dec 07, 2018 15:03
--- NOTE | 2018-12-07 17:01 | CONS ---
Assessment/Plan Assessment/Plan Hospital Course (Demo Recall) 83 y/o with Hospital Course (Demo Recall) 1. End-stage renal disease on hemodialysis. 2. Gastrointestinal bleed with melena. 3. Hypertension. 4. Diabetes. 5. Right hand swelling, s/p I and D on 11/17/18 6. History of falls. 7. Vascular dementia. 8. History of sepsis with VRE. 9. Dysphagia, status post G-tube. 10. History of hip fracture. 11. Thrombocytopenia. 12. Atherosclerotic heart disease. 13. Pneumonia left side 14. Anemia Assessment/Plan (Daily) - will do more UF tomorrow along with hemodialysis -Urine culture of positive for yeast - cw with permacath -avoid nephrotoxic drugs -HD MWFr -c/w epogen Consultation Date/Type/Reason Admit Date/Time Nov 16, 2018 at 05:51 Initial Consult Date 11/16/18 Requesting Provider: DYLON WALLS MD Date/Time of Note DATE: 12/07/18 TIME: 16:59 24 HR Interval Summary Free Text/Dictation Slight shortness of breath X-ray shows some congestion Exam/Review of Systems Exam Vitals Vital Signs Date Temp Pulse Resp B/P (MAP) Pulse Ox O2 O2 Flow FiO2 Time Delivery Rate 12/07/18 97.7 74 18 148/68 100 13:40 (94) 12/06/18 Nasal 2.0 16:39 Cannula Intake and Output 12/06/18 12/06/18 12/07/18 1414:59 22:59 06:59 IntakeIntake Total 1200 ml 50 ml OutputOutput Total 0 ml 1700 ml BalanceBalance 0 ml -500 ml 50 ml Exam right chest Permcath Constitutional: alert Respiratory: clear to auscultation Cardiovascular: regular rate and rhythm Gastrointestinal: soft, surgical scars (G tube) Results Result Diagram: 12/07/1842812/07/18428 Results 24hrs Laboratory Tests Test 12/07/18 04:29 12/07/18 09:21 12/07/18 16:33 White Blood Count 12.0 H Red Blood Count 3.17 L Hemoglobin 8.5 L Hematocrit 26.9 L Mean Corpuscular Volume 84.9 Mean Corpuscular Hemoglobin 26.8 L Mean Corpuscular Hemoglobin Concent 31.6 L Red Cell Distribution Width 16.3 H Platelet Count 319 Mean Platelet Volume 11.7 H Immature Granulocytes % 1.000 H Neutrophils % 84.7 H Lymphocytes % 8.5 L Monocytes % 5.0 Eosinophils % 0.5 Basophils % 0.3 Nucleated Red Blood Cells % 0.3 H Immature Granulocytes # 0.120 H Neutrophils # 10.1 H Lymphocytes # 1.0 Monocytes # 0.6 Eosinophils # 0.1 Basophils # 0.0 Nucleated Red Blood Cells # 0.0 Sodium Level 140 Potassium Level 3.7 Chloride Level 100 Carbon Dioxide Level 30 Anion Gap 10 Blood Urea Nitrogen 40 #H Creatinine 1.32 H Est Glomerular Filtrat Rate mL/min Glucose Level 127 Calcium Level 9.2 Phosphorus Level 3.7 Magnesium Level 2.3 Bedside Glucose 196 86 Medications Medication Current Medications IV Flush (NS 3 ml) 3 ml PER PROTOCOL IV ; Start 11/16/18 at 09:00 Ondansetron HCl (Zofran Inj) 4 mg Q6H PRN IV NAUSEA AND/OR VOMITING; Start 11/16/18 at 09:00 Acetaminophen (Tylenol Tab) 650 mg Q6H PRN PO PAIN LEVEL 1-3 OR FEVER Last administered on 12/06/18at 08:34; Admin Dose 650 MG; Start 11/16/18 at 09:00 Docusate Sodium (Colace) 100 mg Q12H PRN PO CONSTIPATION; Start 11/16/18 at 09:00 Magnesium Hydroxide (Milk Of Mag) 30 ml DAILY PRN PO CONSTIPATION; Start 11/16/18 at 09:00 Folic Acid (Folic Acid) 1 mg DAILY GTB Last administered on 12/07/18at 09:23; Admin Dose 1 MG; Start 11/16/18 at 09:00 Albuterol/ Ipratropium (Duoneb) 3 ml Q6 PRN HHN sob; Start 11/16/18 at 09:00 Linagliptin (Tradjenta) 5 mg DAILY GTB Last administered on 12/07/18at 09:25; Admin Dose 5 MG; Start 11/16/18 at 09:00 Lorazepam (Ativan) 1 mg HS PRN GTB ANXIETY Last administered on 12/05/18at 00:01; Admin Dose 1 MG; Start 11/16/18 at 09:00 Quetiapine Fumarate (Seroquel) 25 mg BID GTB Last administered on 1/29/19at 09:25; Admin Dose 25 MG; Start 11/16/18 at 09:00 Senna (Senokot) 1 tab BID PO Last administered on 12/07/18 09:25; Admin Dose 1 TAB; Start 11/16/18 at 09:00 Valproate Sodium (Depakene Liquid Cup) 250 mg Q8 PO Last administered on 12/07/18 14:57; Admin Dose 250 MG; Start 11/16/18 at 14:00 Sodium Chloride (NS) -To prime the dialy... DIRECTED FOR HD PRN IV SBP<90; Start 11/16/18 at 15:00 Hydralazine HCl (Apresoline) 10 mg Q4H PRN IV ELEVATED BLOOD PRESSURE Last administered on 12/04/18 21:06; Admin Dose 10 MG; Start 11/17/18 at 10:30 Acetaminophen/ Hydrocodone Bitart ([place] (5/325)) 1 tab Q3H PRN PO MODERATE PAIN LEVEL 4-6 Last administered on 12/06/18 15:38; Admin Dose 1 TAB; Start 11/17/18 at 14:30 Metoprolol Tartrate (Lopressor) 50 mg BID GTB Last administered on 12/07/18 09:24; Admin Dose 50 MG; Start 11/18/18 at 09:00 Albumin Human 50 ml @ 100 mls/hr WITH DIALYSIS PRN IV SBP<90 Last administered on 11/22/18 11:25; Admin Dose 100 MLS/HR; Start 11/18/18 at 14:30 Morphine Sulfate (morphine) 6 mg Q4H PRN PO SEVERE PAIN LEVEL 7-10 Last administered on 11/27/18 00:35; Admin Dose 6 MG; Start 11/18/18 at 23:00 Docusate Sodium (Colace Liquid Cup) 100 mg DAILY GTB Last administered on 12/07/18 09:23; Admin Dose 100 MG; Start 11/19/18 at 09:30 Guaifenesin/ Dextromethorphan (Robitussin Dm Liquid Cup) 5 ml Q4H PRN PO cough Last administered on 11/23/18 21:50; Admin Dose 5 ML; Start 11/20/18 at 14:00 Multivit/Ca Carb/ B Cmplx/FA/Prenat (Kianna-Roque) 1 tab DAILY GTB Last administered on 12/07/18 09:24; Admin Dose 1 TAB; Start 11/24/18 at 09:00 Lansoprazole (Prevacid) 30 mg DAILY GTB Last administered on 12/07/18 09:24; Admin Dose 30 MG; Start 11/26/18 at 09:00 Acetaminophen (Tylenol Supp) 650 mg Q4H PRN [place] MILD PAIN(1-3) OR TEMP>38C Last administered on 11/26/18 08:32; Admin Dose 650 MG; Start 11/26/18 at 08:30 Amlodipine Besylate (Norvasc) 5 mg BID GTB Last administered on 12/07/18 09:24; Admin Dose 5 MG; Start 12/04/18 at 21:00 Ferrous Sulfate (Feosol Liquid Cup) 300 mg BID GTB Last administered on 12/07/18 09:23; Admin Dose 300 MG; Start 12/05/18 at 09:30 Epoetin Michael (Epogen (Esrd)) 4,000 units MoWeFr@17 SC Last administered on 12/06/18 17:59; Admin Dose 4,000 UNITS; Start 12/06/18 at 17:00 Voriconazole (Vfend) 200 mg BID PO Last administered on 12/07/18 09:25; Admin Dose 200 MG; Start 12/06/18 at 21:00 Hydralazine HCl (Apresoline) 50 mg Q8 PO ; Start 12/07/18 at 22:00 JOSE RAUL ANDREWS MD Dec 07, 2018 17:01
[2018-12-07] MEDS ORDERED: HEPARIN 1000 UNITS/ML 10 ML INJ CATHETER SCH (17:30)
[2018-12-07] MEDS ORDERED: SODIUM CHLORIDE 0.9% 1L BAG IV PRN (17:30)
--- NOTE | 2018-12-07 17:38 | CONS ---
Consult Date/Type/Reason Admit Date/Time Nov 16, 2018 at 05:51 Initial Consult Date 11/16/18 Type of Consultation: cv Requesting Provider: DYLON WALLS MD Date/Time of Note DATE: 12/07/18 TIME: 17:38 Subjective Cardiology follow up note Sl DW/ Staff pt is STILL CONFUSED and intermittently agitated no report of any chest pain or pressure or palpitations but pt is a very poor historian s/p I/D 11/17 EGD 11.18.18 O: General: Elderly frail male in no acute distress HEENT: NC/AT. pupils are equal. round. NECK: NO JVD. no stridor. CV: RRR. systolic murmur; no gallop or rubs. PULM: no wheezing or rhonchi. GI: SOFT, NT, ND, no rebound or guarding neuro: awake Psych: confused rectal: deferred Objective Vitals Vital Signs Date Temp Pulse Resp B/P (MAP) Pulse Ox O2 O2 Flow FiO2 Time Delivery Rate 12/07/18 97.7 74 18 148/68 100 13:40 (94) 12/06/18 Nasal 2.0 16:39 Cannula Intake and Output 12/06/18 12/06/18 12/07/18 1515:00 23:00 07:00 IntakeIntake Total 1200 ml 50 ml OutputOutput Total 0 ml 1700 ml BalanceBalance 0 ml -500 ml 50 ml Results/Medications Result Diagram: 12/07/18 0429 12/07/18 0429 Results 24 hrs Laboratory Tests Test 12/07/18 04:29 12/07/18 09:21 12/07/18 16:33 White Blood Count 12.0 H Red Blood Count 3.17 L Hemoglobin 8.5 L Hematocrit 26.9 L Mean Corpuscular Volume 84.9 Mean Corpuscular Hemoglobin 26.8 L Mean Corpuscular Hemoglobin Concent 31.6 L Red Cell Distribution Width 16.3 H Platelet Count 319 Mean Platelet Volume 11.7 H Immature Granulocytes % 1.000 H Neutrophils % 84.7 H Lymphocytes % 8.5 L Monocytes % 5.0 Eosinophils % 0.5 Basophils % 0.3 Nucleated Red Blood Cells % 0.3 H Immature Granulocytes # 0.120 H Neutrophils # 10.1 H Lymphocytes # 1.0 Monocytes # 0.6 Eosinophils # 0.1 Basophils # 0.0 Nucleated Red Blood Cells # 0.0 Sodium Level 140 Potassium Level 3.7 Chloride Level 100 Carbon Dioxide Level 30 Anion Gap 10 Blood Urea Nitrogen 40 #H Creatinine 1.32 H Est Glomerular Filtrat Rate mL/min Glucose Level 127 Calcium Level 9.2 Phosphorus Level 3.7 Magnesium Level 2.3 Bedside Glucose 196 86 Home Meds Reported Medications Sennosides* (Senna Lax*) 8.6 Mg Tablet, 1 TAB PO BID, TAB 11/16/18 Sevelamer Carbonate* (Renvela*) 0.8 Gm Powd.pack, 0.8 GM PO WITH MEALS, PACKET 11/16/18 Lansoprazole* (Lansoprazole*) 30 Mg Capsule.dr, 30 MG PO QAM, CAP 11/16/18 Hydralazine Hcl* (Hydralazine Hcl*) 25 Mg Tab, 25 MG PO Q8, #90 TAB 11/16/18 Ferrous Sulfate* (Ferrous Sulfate*) 325 Mg Tabec, 325 MG PO BID for anemia, TAB 11/16/18 Valproate Sodium (Valproic Acid) 250 Mg/5 Ml Solution, 250 MG PO Q8, ML 11/16/18 Insulin Aspart* (Novolog Insulin Pen*) 100 Unit/Ml Soln, 0 SC .SLIDING SCALE AC, EA IF BS 160-200=2 UNITS,201-250=4 UNITS,251-300=8 UNITS,301-350=12 UNITS;351-400=16 UNITS THEN CALL MD. 10/16/18 Ondansetron Hcl* (Zofran*) 4 Mg Tab, 4 MG GTB Q4H PRN for NAUSEA AND OR V OMITING, TAB 10/16/18 Linagliptin (TRADJENTA) 5 Mg Tablet, 5 MG GTB DAILY, TAB 10/16/18 Quetiapine Fumarate* (Seroquel*) 25 Mg Tablet, 25 MG GTB BID, #60 TAB 10/16/18 [Nephro-Roque] No Conflict Check, 0.8 MG GTB DAILY 10/16/18 Polyethylene Glycol* (Miralax*) 17 Gm Powd.pack, 17 GM GTB Q24H, #30 PACKET 10/16/18 Metoprolol Tartrate* (Lopressor*) 50 Mg Tab, 50 MG GTB DAILY, #60 TAB Q MON,WED,FRI,SUN,HOLD FOR SBP<110 OR ID<60 10/16/18 Metoprolol Tartrate* (Lopressor*) 50 Mg Tab, 50 MG GTB BID, #60 TAB QTUE,ANDREW,SAT,HOLD FOR SBP<110 OR ID<60 10/16/18 Linaclotide (LINZESS) 145 Mcg Capsule, 145 MCG GTB DAILY, #30 CAP 10/16/18 Ipratropium-Albuterol (Ipratropium-Albuterol) 0.5-3 Mg/3 Ml Ampul.neb, 3 ML INHALATION Q6, #30 VIAL FOR 14 DAYS,STOP DATE 10/17/18 10/16/18 Hydralazine Hcl* (Hydralazine Hcl*) 25 Mg Tab, 25 MG GTB DAILY, #60 TAB Q TUE,ANDREW,SAT,HOLD IF SBP<110 OR ID<60 10/16/18 Folic Acid* (Folic Acid*) 1 Mg Tablet, 1 MG GTB DAILY, TAB 10/16/18 Docusate Sodium* (Colace*) 100 Mg Capsule, 100 MG GTB DAILY, #30 CAP 10/16/18 Lorazepam* (Lorazepam*) 1 Mg Tablet, 1 MG GTB HS PRN for ANXIETY, #30 TAB Q TUE,ANDREW,SAT 10/16/18 Amlodipine Besylate* (Norvasc*) 5 Mg Tablet, 5 MG GTB BID, TAB TAKE Q TUE,ANDREW,SAT FOR HTN, HOLD FOR SBP<110 OR ID<60 10/16/18 Acetaminophen* (Acetaminophen*) 650 Mg Tablet, 650 MG GTB Q6H PRN for PAIN LEVEL 1-10/10, #30 TAB 10/16/18 Medications Current Medications IV Flush (NS 3 ml) 3 ml PER PROTOCOL IV ; Start 11/16/18 at 09:00 Ondansetron HCl (Zofran Inj) 4 mg Q6H PRN IV NAUSEA AND/OR VOMITING; Start 11/16/18 at 09:00 Acetaminophen (Tylenol Tab) 650 mg Q6H PRN PO PAIN LEVEL 1-3 OR FEVER Last administered on 12/06/18at 08:34; Admin Dose 650 MG; Start 11/16/18 at 09:00 Docusate Sodium (Colace) 100 mg Q12H PRN PO CONSTIPATION; Start 11/16/18 at 09:00 Magnesium Hydroxide (Milk Of Mag) 30 ml DAILY PRN PO CONSTIPATION; Start 11/16/18 at 09:00 Folic Acid (Folic Acid) 1 mg DAILY GTB Last administered on 12/07/18 09:23; Ad min Dose 1 MG; Start 11/16/18 at 09:00 Albuterol/ Ipratropium (Duoneb) 3 ml Q6 PRN HHN sob; Start 11/16/18 at 09:00 Linagliptin (Tradjenta) 5 mg DAILY GTB Last administered on 12/07/18 09:25; Admin Dose 5 MG; Start 11/16/18 at 09:00 Lorazepam (Ativan) 1 mg HS PRN GTB ANXIETY Last administered on 12/05/18 00:01; Admin Dose 1 MG; Start 11/16/18 at 09:00 Quetiapine Fumarate (Seroquel) 25 mg BID GTB Last administered on 12/07/18 09:25; Admin Dose 25 MG; Start 11/16/18 at 09:00 Senna (Senokot) 1 tab BID PO Last administered on 12/07/18 09:25; Admin Dose 1 TAB; Start 11/16/18 at 09:00 Valproate Sodium (Depakene Liquid Cup) 250 mg Q8 PO Last administered on 12/07/18 14:57; Admin Dose 250 MG; Start 11/16/18 at 14:00 Sodium Chloride (NS) -To prime the dialy... DIRECTED FOR HD PRN IV SBP<90; Start 11/16/18 at 15:00 Hydralazine HCl (Apresoline) 10 mg Q4H PRN IV ELEVATED BLOOD PRESSURE Last a dministered on 12/04/18 21:06; Admin Dose 10 MG; Start 11/17/18 at 10:30 Acetaminophen/ Hydrocodone Bitart ([place] (5/325)) 1 tab Q3H PRN PO MODERATE PAIN LEVEL 4-6 Last administered on 12/06/18 15:38; Admin Dose 1 TAB; Start 11/17/18 at 14:30 Metoprolol Tartrate (Lopressor) 50 mg BID GTB Last administered on 12/07/18 09:24; Admin Dose 50 MG; Start 11/18/18 at 09:00 Albumin Human 50 ml @ 100 mls/hr WITH DIALYSIS PRN IV SBP<90 Last administered on 11/22/18 11:25; Admin Dose 100 MLS/HR; Start 11/18/18 at 14:30 Morphine Sulfate (morphine) 6 mg Q4H PRN PO SEVERE PAIN LEVEL 7-10 Last administered on 11/27/18 00:35; Admin Dose 6 MG; Start 11/18/18 at 23:00 Docusate Sodium (Colace Liquid Cup) 100 mg DAILY GTB Last administered on 12/07/18 09:23; Admin Dose 100 MG; Start 11/19/18 at 09:30 Guaifenesin/ Dextromethorphan (Robitussin Dm Liquid Cup) 5 ml Q4H PRN PO cough Last administered on 11/23/18 21:50; Admin Dose 5 ML; Start 11/20/18 at 14:00 Multivit/Ca Carb/ B Cmplx/FA/Prenat (Kianna-Roque) 1 tab DAILY GTB Last administered on 12/07/18 09:24; Admin Dose 1 TAB; Start 11/24/18 at 09:00 Lansoprazole (Prevacid) 30 mg DAILY GTB Last administered on 12/07/18 09:24; Admin Dose 30 MG; Start 11/26/18 at 09:00 Acetaminophen (Tylenol Supp) 650 mg Q4H PRN [place] MILD PAIN(1-3) OR TEMP>38C Last administered on 11/26/18 08:32; Admin Dose 650 MG; Start 11/26/18 at 08:30 Amlodipine Besylate (Norvasc) 5 mg BID GTB Last administered on 12/07/18 09:24; Admin Dose 5 MG; Start 12/04/18 at 21:00 Ferrous Sulfate (Feosol Liquid Cup) 300 mg BID GTB Last administered on 12/07/18 09:23; Admin Dose 300 MG; Start 12/05/18 at 09:30 Epoetin Michael (Epogen (Esrd)) 4,000 units MoWeFr@17 SC Last administered on 12/06/18 17:59; Admin Dose 4,000 UNITS; Start 12/06/18 at 17:00 Voriconazole (Vfend) 200 mg BID PO Last administered on 1/29/19at 09:25; Admin Dose 200 MG; Start 12/06/18 at 21:00 Hydralazine HCl (Apresoline) 50 mg Q8 PO ; Start 12/07/18 at 22:00 Heparin Sodium (Porcine) (Heparin (1000 Units/ml)) 4,000 unit AFTER DIALYSIS CATHETER ; Start 12/07/18 at 17:30 Sodium Chloride (NS) -To prime the dialy... DIRECTED FOR HD PRN IV HD; Start 12/07/18 at 17:30 Assessment/Plan Hospital Course (Demo Recall) fungemia Right hand hematoma: Status post IND now Renal failure on dialysis Hypertension Dementia Anemia Possible GI bleed: Status post EGD AI Recommendations: transfusion with HD prn Dialysis as per renal team Neuro workup and treatment as per internal medicine Antibiotic as per ID and internal medicine Thank you for his referral. We will continue to follow along with you as needed basis CHRISTEN ESCOBEDO MD [facility] CHRISTEN ESCOBEDO MD Dec 07, 2018 17:38
[2018-12-07 19:28] VITALS: BP 151/67; PULSE 87; RESP 21
[2018-12-07] MEDS: GUAIFENESIN/DM 5ML CUP PO PRN (23:55)
[2018-12-08] VITALS (19 sets, daily range): BP systolic 104–138; BP diastolic 40–67; PULSE 73–138; RESP 18–20
[2018-12-08] MEDS: QUETIAPINE 25 MG TAB GTB SCH ×3 (00:05→22:27)
[2018-12-08] MEDS: ACETAMINOPHEN 325 MG TAB PO PRN (00:22)
[2018-12-08] MEDS: VALPROIC ACID LIQUID CUP 250 MG/5 ML CUP PO SCH ×3 (06:08→22:30)
[2018-12-08] MEDS: SENNA TAB PO SCH ×2 (08:41→22:29)
[2018-12-08] MEDS: VORICONAZOLE 200 MG TAB PO SCH ×2 (08:41→22:29)
[2018-12-08] MEDS: LANSOPRAZOLE 30 MG CAP GTB SCH (08:41)
[2018-12-08] MEDS: DOCUSATE SODIUM 10 MG/ML (10ML CUP) GTB SCH (08:41)
[2018-12-08] MEDS: LINAGLIPTIN 5 MG TABLET GTB SCH (08:41)
[2018-12-08] MEDS: FERROUS SULFATE 60 MG/ML 5ML CUP GTB SCH ×2 (08:41→22:30)
[2018-12-08] MEDS: FOLIC ACID 1 MG TAB GTB SCH (08:41)
[2018-12-08] MEDS: MULTIVIT/CA CARB/B CMPLX/FA TAB GTB SCH (08:41)
[2018-12-08] MEDS: METOPROLOL 50 MG TAB GTB SCH ×2 (08:42→22:30)
[2018-12-08] MEDS: AMLODIPINE 5 MG TAB GTB SCH ×2 (08:43→22:29)
--- NOTE | 2018-12-08 12:16 | CONS ---
Assessment/Plan Assessment/Plan Hospital Course (Demo Recall) No acute changes, VSS, no fevers, bladder scan neg Microbiology: Blood culture repeated on November 29 grew Dominique glabrata blood cultures since December 01 that were drawn from permacath negative blood culture on December 03 negative, urine culture growing yeast Antimicrobials: Vfend Indwelling: Left chest permacath, PEG Physical examination: Chronically ill-appearing elderly woman who is awake, confused, in no distress. Head atraumatic normocephalic. Neck is supple. Chest rise symmetrical breath sounds diminished bases. Heart: S1-S2. Abdomen soft bowel sounds present, right upper extremity Armani wrapped Assessment: 1. Sepsis with fungemia secondary to urinary tract infection 2. S/p Healthcare associated pneumonia, possibly aspiration 3. Right hand hematoma, status post I&D 11/17/18 4. Status post VRE bacteremia, status post new Pcath 5. End-stage renal disease, hemodialysis dependent 6. Dementia 7. Failure to thrive 8. Diabetes 9. Anemia Plan: Clinically stable, blood cultures sent from hemodialysis catheter remain negative, urine culture growing yeast, patient is on Vfend==> last dose on December 16. Consultation Date/Type/Reason Admit Date/Time Nov 16, 2018 at 05:51 Initial Consult Date 11/16/18 Type of Consult id Requesting Provider: DYLON WALLS MD Date/Time of Note DATE: 12/08/18 TIME: 12:15 Exam/Review of Systems Exam Vitals Vital Signs Date Temp Pulse Resp B/P (MAP) Pulse Ox O2 O2 Flow FiO2 Time Delivery Rate 12/08/18 98.6 73 19 104/51 91 08:25 (68) 12/06/18 Nasal 2.0 16:39 Cannula Intake and Output 12/07/18 12/07/18 12/08/18 1515:00 23:00 07:00 IntakeIntake Total 630 ml 290 ml BalanceBalance 630 ml 290 ml Results Result Diagram: 12/08/18 0548 12/08/18 0548 Results 24hrs Laboratory Tests Test 12/07/18 16:33 12/08/18 05:48 12/08/18 08:37 Bedside Glucose 86 224 H White Blood Count 6.6 # Red Blood Count 2.87 L Hemoglobin 7.7 L Hematocrit 24.8 L Mean Corpuscular Volume 86.4 Mean Corpuscular Hemoglobin 26.8 L Mean Corpuscular Hemoglobin Concent 31.0 L Red Cell Distribution Width 16.9 H Platelet Count 258 Mean Platelet Volume 12.2 H Immature Granulocytes % 1.100 H Neutrophils % 68.9 Lymphocytes % 14.4 L Monocytes % 10.2 Eosinophils % 4.6 Basophils % 0.8 Nucleated Red Blood Cells % 0.8 H Immature Granulocytes # 0.070 H Neutrophils # 4.6 Lymphocytes # 1.0 Monocytes # 0.7 Eosinophils # 0.3 Basophils # 0.1 Nucleated Red Blood Cells # 0.1 H Sodium Level 141 Potassium Level 3.9 Chloride Level 99 Carbon Dioxide Level 31 Anion Gap 11 Blood Urea Nitrogen 73 #H Creatinine 2.25 H Est Glomerular Filtrat Rate mL/min Glucose Level 111 Calcium Level 8.7 Phosphorus Level 5.3 H Magnesium Level 2.5 Medications Medication Current Medications IV Flush (NS 3 ml) 3 ml PER PROTOCOL IV ; Start 11/16/18 at 09:00 Ondansetron HCl (Zofran Inj) 4 mg Q6H PRN IV NAUSEA AND/OR VOMITING; Start 11/16/18 at 09:00 Acetaminophen (Tylenol Tab) 650 mg Q6H PRN PO PAIN LEVEL 1-3 OR FEVER Last administered on 12/08/18at 00:22; Admin Dose 650 MG; Start 11/16/18 at 09:00 Docusate Sodium (Colace) 100 mg Q12H PRN PO CONSTIPATION; Start 11/16/18 at 09:00 Magnesium Hydroxide (Milk Of Mag) 30 ml DAILY PRN PO CONSTIPATION; Start 11/16/18 at 09:00 Folic Acid (Folic Acid) 1 mg DAILY GTB Last administered on 12/08/18at 08:41; Admin Dose 1 MG; Start 11/16/18 at 09:00 Albuterol/ Ipratropium (Duoneb) 3 ml Q6 PRN HHN sob; Start 11/16/18 at 09:00 Linagliptin (Tradjenta) 5 mg DAILY GTB Last administered on 12/08/18at 08:41; Admin Dose 5 MG; Start 11/16/18 at 09:00 Lorazepam (Ativan) 1 mg HS PRN GTB ANXIETY Last administered on 12/05/18at 00:01; Admin Dose 1 MG; Start 11/16/18 at 09:00 Quetiapine Fumarate (Seroquel) 25 mg BID GTB Last administered on 12/08/18 08:41; Admin Dose 25 MG; Start 11/16/18 at 09:00 Senna (Senokot) 1 tab BID PO Last administered on 12/08/18 08:41; Admin Dose 1 TAB; Start 11/16/18 at 09:00 Valproate Sodium (Depakene Liquid Cup) 250 mg Q8 PO Last administered on 12/08/18 06:08; Admin Dose 250 MG; Start 11/16/18 at 14:00 Sodium Chloride (NS) -To prime the dialy... DIRECTED FOR HD PRN IV SBP<90; Start 11/16/18 at 15:00 Hydralazine HCl (Apresoline) 10 mg Q4H PRN IV ELEVATED BLOOD PRESSURE Last administered on 12/04/18 21:06; Admin Dose 10 MG; Start 11/17/18 at 10:30 Acetaminophen/ Hydrocodone Bitart ([place] (5/325)) 1 tab Q3H PRN PO MODERATE PAIN LEVEL 4-6 Last administered on 12/06/18 15:38; Admin Dose 1 TAB; Start 11/17/18 at 14:30 Metoprolol Tartrate (Lopressor) 50 mg BID GTB Last administered on 12/07/18 23:57; Admin Dose 50 MG; Start 11/18/18 at 09:00 Albumin Human 50 ml @ 100 mls/hr WITH DIALYSIS PRN IV SBP<90 Last administered on 11/22/18 11:25; Admin Dose 100 MLS/HR; Start 11/18/18 at 14:30 Morphine Sulfate (morphine) 6 mg Q4H PRN PO SEVERE PAIN LEVEL 7-10 Last administered on 11/27/18 00:35; Admin Dose 6 MG; Start 11/18/18 at 23:00 Docusate Sodium (Colace Liquid Cup) 100 mg DAILY GTB Last administered on 12/08/18 08:41; Admin Dose 100 MG; Start 11/19/18 at 09:30 Guaifenesin/ Dextromethorphan (Robitussin Dm Liquid Cup) 5 ml Q4H PRN PO cough Last administered on 12/07/18 23:55; Admin Dose 5 ML; Start 11/20/18 at 14:00 Multivit/Ca Carb/ B Cmplx/FA/Prenat (Kianna-Roque) 1 tab DAILY GTB Last administered on 12/08/18 08:41; Admin Dose 1 TAB; Start 11/24/18 at 09:00 Lansoprazole (Prevacid) 30 mg DAILY GTB Last administered on 12/08/18 08:41; Admin Dose 30 MG; Start 11/26/18 at 09:00 Acetaminophen (Tylenol Supp) 650 mg Q4H PRN [place] MILD PAIN(1-3) OR TEMP>38C Last administered on 11/26/18 08:32; Admin Dose 650 MG; Start 11/26/18 at 08:30 Amlodipine Besylate (Norvasc) 5 mg BID GTB Last administered on 12/07/18 23:56; Admin Dose 5 MG; Start 12/04/18 at 21:00 Ferrous Sulfate (Feosol Liquid Cup) 300 mg BID GTB Last administered on 12/08/18 08:41; Admin Dose 300 MG; Start 12/05/18 at 09:30 Epoetin Michael (Epogen (Esrd)) 4,000 units MoWeFr@17 SC Last administered on 12/06/18 17:59; Admin Dose 4,000 UNITS; Start 12/06/18 at 17:00 Voriconazole (Vfend) 200 mg BID PO Last administered on 12/08/18 08:41; Admin Dose 200 MG; Start 12/06/18 at 21:00 Hydralazine HCl (Apresoline) 50 mg Q8 PO Last administered on 12/08/18 06:08; Admin Dose 50 MG; Start 12/07/18 at 22:00 Heparin Sodium (Porcine) (Heparin (1000 Units/ml)) 4,000 unit AFTER DIALYSIS CATHETER ; Start 12/07/18 at 17:30 Sodium Chloride (NS) -To prime the dialy... DIRECTED FOR HD PRN IV HD; Start 12/07/18 at 17:30 PHYLICIA HOLCOMB NP Dec 08, 2018 12:16
--- NOTE | 2018-12-08 14:52 | CONS ---
Assessment/Plan Assessment/Plan Hospital Course (Demo Recall) 83 y/o with Hospital Course (Demo Recall) 1. End-stage renal disease on hemodialysis. 2. Gastrointestinal bleed with melena. 3. Hypertension. 4. Diabetes. 5. Right hand swelling, s/p I and D on 11/17/18 6. History of falls. 7. Vascular dementia. 8. History of sepsis with VRE. 9. Dysphagia, status post G-tube. 10. History of hip fracture. 11. Thrombocytopenia. 12. Atherosclerotic heart disease. 13. Pneumonia left side 14. Anemia 15 YEAST BACTERIMIA LIKELY DUE TO UTI Assessment/Plan (Daily) - hd today - vfend with ID - cw with permacath -avoid nephrotoxic drugs -HD MWFr -c/w epogen - Aspiration precautions Consultation Date/Type/Reason Admit Date/Time Nov 16, 2018 at 05:51 Initial Consult Date 11/16/18 Requesting Provider: DYLON WALLS MD Date/Time of Note DATE: 12/08/18 TIME: 14:50 24 HR Interval Summary Free Text/Dictation Hd scheduled today +pt asleep Exam/Review of Systems Exam Vitals Vital Signs Date Temp Pulse Resp B/P (MAP) Pulse Ox O2 O2 Flow FiO2 Time Delivery Rate 12/08/18 98.5 82 18 115/58 99 13:30 (77) 12/06/18 Nasal 2.0 16:39 Cannula Intake and Output 12/07/18 12/07/18 12/08/18 1515:00 23:00 07:00 IntakeIntake Total 630 ml 290 ml BalanceBalance 630 ml 290 ml Exam right chest Permcath Constitutional: alert Respiratory: clear to auscultation Cardiovascular: regular rate and rhythm Gastrointestinal: soft, surgical scars (G tube) Results Result Diagram: 12/08/18 0548 12/08/18 0548 Results 24hrs Laboratory Tests Test 12/07/18 16:33 12/08/18 05:48 12/08/18 08:37 Bedside Glucose 86 224 H White Blood Count 6.6 # Red Blood Count 2.87 L Hemoglobin 7.7 L Hematocrit 24.8 L Mean Corpuscular Volume 86.4 Mean Corpuscular Hemoglobin 26.8 L Mean Corpuscular Hemoglobin Concent 31.0 L Red Cell Distribution Width 16.9 H Platelet Count 258 Mean Platelet Volume 12.2 H Immature Granulocytes % 1.100 H Neutrophils % 68.9 Lymphocytes % 14.4 L Monocytes % 10.2 Eosinophils % 4.6 Basophils % 0.8 Nucleated Red Blood Cells % 0.8 H Immature Granulocytes # 0.070 H Neutrophils # 4.6 Lymphocytes # 1.0 Monocytes # 0.7 Eosinophils # 0.3 Basophils # 0.1 Nucleated Red Blood Cells # 0.1 H Sodium Level 141 Potassium Level 3.9 Chloride Level 99 Carbon Dioxide Level 31 Anion Gap 11 Blood Urea Nitrogen 73 #H Creatinine 2.25 H Est Glomerular Filtrat Rate mL/min Glucose Level 111 Calcium Level 8.7 Phosphorus Level 5.3 H Magnesium Level 2.5 Medications Medication Current Medications IV Flush (NS 3 ml) 3 ml PER PROTOCOL IV ; Start 11/16/18 at 09:00 Ondansetron HCl (Zofran Inj) 4 mg Q6H PRN IV NAUSEA AND/OR VOMITING; Start 11/16/18 at 09:00 Acetaminophen (Tylenol Tab) 650 mg Q6H PRN PO PAIN LEVEL 1-3 OR FEVER Last administered on 12/08/18at 00:22; Admin Dose 650 MG; Start 11/16/18 at 09:00 Docusate Sodium (Colace) 100 mg Q12H PRN PO CONSTIPATION; Start 11/16/18 at 09:00 Magnesium Hydroxide (Milk Of Mag) 30 ml DAILY PRN PO CONSTIPATION; Start 11/16/18 at 09:00 Folic Acid (Folic Acid) 1 mg DAILY GTB Last administered on 12/08/18at 08:41; Admin Dose 1 MG; Start 11/16/18 at 09:00 Albuterol/ Ipratropium (Duoneb) 3 ml Q6 PRN HHN sob; Start 11/16/18 at 09:00 Linagliptin (Tradjenta) 5 mg DAILY GTB Last administered on 12/08/18at 08:41; Admin Dose 5 MG; Start 11/16/18 at 09:00 Lorazepam (Ativan) 1 mg HS PRN GTB ANXIETY Last administered on 12/05/18at 00:01; Admin Dose 1 MG; Start 11/16/18 at 09:00 Quetiapine Fumarate (Seroquel) 25 mg BID GTB Last administered on 12/08/18at 08:41; Admin Dose 25 MG; Start 11/16/18 at 09:00 Senna (Senokot) 1 tab BID PO Last administered on 12/08/18 08:41; Admin Dose 1 TAB; Start 11/16/18 at 09:00 Valproate Sodium (Depakene Liquid Cup) 250 mg Q8 PO Last administered on 12/08/18 13:27; Admin Dose 250 MG; Start 11/16/18 at 14:00 Sodium Chloride (NS) -To prime the dialy... DIRECTED FOR HD PRN IV SBP<90; Start 11/16/18 at 15:00 Hydralazine HCl (Apresoline) 10 mg Q4H PRN IV ELEVATED BLOOD PRESSURE Last administered on 12/04/18 21:06; Admin Dose 10 MG; Start 11/17/18 at 10:30 Acetaminophen/ Hydrocodone Bitart ([place] (5/325)) 1 tab Q3H PRN PO MODERATE PAIN LEVEL 4-6 Last administered on 12/06/18 15:38; Admin Dose 1 TAB; Start 11/17/18 at 14:30 Metoprolol Tartrate (Lopressor) 50 mg BID GTB Last administered on 12/07/18 23:57; Admin Dose 50 MG; Start 11/18/18 at 09:00 Albumin Human 50 ml @ 100 mls/hr WITH DIALYSIS PRN IV SBP<90 Last administered on 11/22/18 11:25; Admin Dose 100 MLS/HR; Start 11/18/18 at 14:30 Morphine Sulfate (morphine) 6 mg Q4H PRN PO SEVERE PAIN LEVEL 7-10 Last administered on 11/27/18 00:35; Admin Dose 6 MG; Start 11/18/18 at 23:00 Docusate Sodium (Colace Liquid Cup) 100 mg DAILY GTB Last administered on 12/08/18 08:41; Admin Dose 100 MG; Start 11/19/18 at 09:30 Guaifenesin/ Dextromethorphan (Robitussin Dm Liquid Cup) 5 ml Q4H PRN PO cough Last administered on 12/07/18 23:55; Admin Dose 5 ML; Start 11/20/18 at 14:00 Multivit/Ca Carb/ B Cmplx/FA/Prenat (Kianna-Roque) 1 tab DAILY GTB Last administered on 12/08/18 08:41; Admin Dose 1 TAB; Start 11/24/18 at 09:00 Lansoprazole (Prevacid) 30 mg DAILY GTB Last administered on 12/08/18 08:41; Admin Dose 30 MG; Start 11/26/18 at 09:00 Acetaminophen (Tylenol Supp) 650 mg Q4H PRN [place] MILD PAIN(1-3) OR TEMP>38C Last administered on 11/26/18 08:32; Admin Dose 650 MG; Start 11/26/18 at 08:30 Amlodipine Besylate (Norvasc) 5 mg BID GTB Last administered on 12/07/18 23:56; Admin Dose 5 MG; Start 12/04/18 at 21:00 Ferrous Sulfate (Feosol Liquid Cup) 300 mg BID GTB Last administered on 12/08/18 08:41; Admin Dose 300 MG; Start 12/05/18 at 09:30 Epoetin Michael (Epogen (Esrd)) 4,000 units MoWeFr@17 SC Last administered on 12/06/18 17:59; Admin Dose 4,000 UNITS; Start 12/06/18 at 17:00 Voriconazole (Vfend) 200 mg BID PO Last administered on 12/08/18 08:41; Admin Dose 200 MG; Start 12/06/18 at 21:00 Hydralazine HCl (Apresoline) 50 mg Q8 PO Last administered on 12/08/18 06:08; Admin Dose 50 MG; Start 12/07/18 at 22:00 Heparin Sodium (Porcine) (Heparin (1000 Units/ml)) 4,000 unit AFTER DIALYSIS CATHETER ; Start 12/07/18 at 17:30 Sodium Chloride (NS) -To prime the dialy... DIRECTED FOR HD PRN IV HD; Start 12/07/18 at 17:30 JOSE RAUL ANDREWS MD Dec 08, 2018 14:52
[2018-12-08] MEDS: EPOETIN 4000 UNITS/1 ML INJ (ESRD) SC SCH (17:12)
--- NOTE | 2018-12-08 20:08 | PN ---
DATE: 12/08/2018 The patient seen, appears to be comfortable, currently being dialyzed today. Hemoglobin dropped to 7 .7, but it has been fluctuating was 7 and then when 8.5 without transfusion. We will continue to mon itor. Hold transfusion for now as patient appears to be stable. PHYSICAL EXAMINATION: VITAL SIGNS: Temperature 98.6, pulse 89, respirations 18, blood pressure 127/53, saturation 98% on r oom air. GENERAL: No acute distress. The patient is pale. CARDIOVASCULAR: S1, S2, regular rate. LUNGS: Clear. ABDOMEN: Soft. G-tube in place. EXTREMITIES: No clubbing, cyanosis, or edema. The patient with left IJ Perm-A-Cath. LABORATORY DATA: White count 6.6, hemoglobin 7.2, hematocrit 25, platelet count of 258 with normal d ifferential. Chemistry: Sodium 141, potassium 3.9, ____ 0.9, bicarbonate 31, BUN is 73, creatinine 2.25, glucose 111. Last glucose level slightly high at 224. Urine culture did show yeast. MEDICATIONS: Include: 1. Hydralazine. 2. Heparin. 3. Vfend 200 b.i.d. 4. Epogen. 5. Ferrous sulfate. 6. Norvasc. 7. Prevacid. 8. Tylenol. 9. Robitussin. 10. Morphine. 11. Lopressor. 12. [place]. 13. Hydralazine. 14. Depakote. 15. Zofran 16. Colace. 17. Milk of magnesia. 18. Folic acid. 19. DuoNeb. 20. Tradjenta. 21. Ativan. 22. Seroquel. 23. Senna. ASSESSMENT AND PLAN: This is an 83-year-old [place] female with end-stage renal disease, dementia, CKD, COPD, who presented with right hand hematoma status post evacuation. Also, was treated for pneu monia and fungemia. Also, urinary tract infection, positive for yeast. 1. Respiratory. Noted on chest x-ray clinically improving. Finished a course of IV antibiotic. ID is following. 2. Fungemia. Continue Vfend. WBC is normal. 3. End-stage renal disease, dialysis 3 times a week. Currently being dialyzed. 4. Anemia. Monitor H and H, transfuse p.r.n. Epogen per nephrology. 5. Dysphagia. Continue G-tube feeding. 6. Disposition to care home facility is willing to provide the patient with all the necessary antifungal medications. 7. Diabetes mellitus, overall controlled. We will continue to monitor, clinically improving. Dispo sition soon. Dictated By: DYLON HULL/MADAN Conf#: [id number] DID#: [id number]
[2018-12-08] MEDS: LORAZEPAM 1 MG TAB GTB PRN (22:27)
[2018-12-09 00:01] VITALS: BP 121/59; PULSE 109
[2018-12-09 01:56] VITALS: BP 135/61; PULSE 82; RESP 16
[2018-12-09] MEDS: VALPROIC ACID LIQUID CUP 250 MG/5 ML CUP PO SCH ×3 (05:51→21:15)
[2018-12-09 06:08] VITALS: BP 144/67; PULSE 77
--- NOTE | 2018-12-09 07:04 | CONS ---
Consult Date/Type/Reason Admit Date/Time Nov 16, 2018 at 05:51 Initial Consult Date 11/16/18 Type of Consultation: cv Requesting Provider: DYLON WALLS MD Date/Time of Note DATE: 12/09/18 TIME: 07:04 Subjective Cardiology follow up note Sl DW/ Staff pt is STILL CONFUSED and intermittently agitated no report of any chest pain or pressure or palpitations but pt is a very poor historian s/p I/D 11/17 EGD 11.18.18 O: General: Elderly frail male in no acute distress HEENT: NC/AT. pupils are equal. round. NECK: NO JVD. no stridor. CV: RRR. systolic murmur; no gallop or rubs. PULM: no wheezing or rhonchi. GI: SOFT, NT, ND, no rebound or guarding neuro: awake Psych: confused rectal: deferred Objective Vitals Vital Signs Date Temp Pulse Resp B/P (MAP) Pulse Ox O2 O2 Flow FiO2 Time Delivery Rate 12/09/18 77 144/67 06:08 (92) 12/09/18 98.5 16 96 01:56 12/08/18 Nasal 21:34 Cannula 12/06/18 2.0 16:39 Intake and Output 12/08/18 12/08/18 12/09/18 1515:00 23:00 07:00 IntakeIntake Total 630 ml 340 ml OutputOutput Total 2400 ml BalanceBalance 630 ml -2060 ml Results/Medications Result Diagram: 12/09/18 0535 12/09/18 0535 Results 24 hrs Laboratory Tests Test 12/08/18 08:37 12/09/18 05:35 Bedside Glucose 224 H White Blood Count 8.4 # Red Blood Count 2.96 L Hemoglobin 7.9 L Hematocrit 25.4 L Mean Corpuscular Volume 85.8 Mean Corpuscular Hemoglobin 26.7 L Mean Corpuscular Hemoglobin Concent 31.1 L Red Cell Distribution Width 16.7 H Platelet Count 260 Mean Platelet Volume 12.0 H Immature Granulocytes % 1.500 H Neutrophils % 74.1 Lymphocytes % 11.6 L Monocytes % 8.6 Eosinophils % 3.6 Basophils % 0.6 Nucleated Red Blood Cells % 0.6 H Immature Granulocytes # 0.130 H Neutrophils # 6.2 Lymphocytes # 1.0 Monocytes # 0.7 Eosinophils # 0.3 Basophils # 0.1 Nucleated Red Blood Cells # 0.1 H Sodium Level 139 Potassium Level 3.9 Chloride Level 99 Carbon Dioxide Level 32 H Anion Gap 8 Blood Urea Nitrogen 34 #H Creatinine 1.28 H Est Glomerular Filtrat Rate mL/min Glucose Level 97 Calcium Level 8.6 Phosphorus Level 2.5 # Magnesium Level 2.3 Home Meds Reported Medications Sennosides* (Senna Lax*) 8.6 Mg Tablet, 1 TAB PO BID, TAB 11/16/18 Sevelamer Carbonate* (Renvela*) 0.8 Gm Powd.pack, 0.8 GM PO WITH MEALS, PACKET 11/16/18 Lansoprazole* (Lansoprazole*) 30 Mg Capsule.dr, 30 MG PO QAM, CAP 11/16/18 Hydralazine Hcl* (Hydralazine Hcl*) 25 Mg Tab, 25 MG PO Q8, #90 TAB 11/16/18 Ferrous Sulfate* (Ferrous Sulfate*) 325 Mg Tabec, 325 MG PO BID for anemia, TAB 11/16/18 Valproate Sodium (Valproic Acid) 250 Mg/5 Ml Solution, 250 MG PO Q8, ML 11/16/18 Insulin Aspart* (Novolog Insulin Pen*) 100 Unit/Ml Soln, 0 SC .SLIDING SCALE AC, EA IF BS 160-200=2 UNITS,201-250=4 UNITS,251-300=8 UNITS,301-350=12 UNITS;351-400=16 UNITS THEN CALL MD. 10/16/18 Ondansetron Hcl* (Zofran*) 4 Mg Tab, 4 MG GTB Q4H PRN for NAUSEA AND OR VOMITING, TAB 10/16/18 Linagliptin (TRADJENTA) 5 Mg Tablet, 5 MG GTB DAILY, TAB 10/16/18 Quetiapine Fumarate* (Seroquel*) 25 Mg Tablet, 25 MG GTB BID, #60 TAB 10/16/18 [Nephro-Roque] No Conflict Check, 0.8 MG GTB DAILY 10/16/18 Polyethylene Glycol* (Miralax*) 17 Gm Powd.pack, 17 GM GTB Q24H, #30 PACKET 10/16/18 Metoprolol Tartrate* (Lopressor*) 50 Mg Tab, 50 MG GTB DAILY, #60 TAB Q MON,WED,FRI,SUN,HOLD FOR SBP<110 OR RI<60 10/16/18 Metoprolol Tartrate* (Lopressor*) 50 Mg Tab, 50 MG GTB BID, #60 TAB QTUE,ANDREW,SAT,HOLD FOR SBP<110 OR RI<60 10/16/18 Linaclotide (LINZESS) 145 Mcg Capsule, 145 MCG GTB DAILY, #30 CAP 10/16/18 Ipratropium-Albuterol (Ipratropium-Albuterol) 0.5-3 Mg/3 Ml Ampul.neb, 3 ML INHALATION Q6, #30 VIAL FOR 14 DAYS,STOP DATE 10/17/18 10/16/18 Hydralazine Hcl* (Hydralazine Hcl*) 25 Mg Tab, 25 MG GTB DAILY, #60 TAB Q TUE,ANDREW,SAT,HOLD IF SBP<110 OR RI<60 10/16/18 Folic Acid* (Folic Acid*) 1 Mg Tablet, 1 MG GTB DAILY, TAB 10/16/18 Docusate Sodium* (Colace*) 100 Mg Capsule, 100 MG GTB DAILY, #30 CAP 10/16/18 Lorazepam* (Lorazepam*) 1 Mg Tablet, 1 MG GTB HS PRN for ANXIETY, #30 TAB Q TUE,ANDREW,SAT 10/16/18 Amlodipine Besylate* (Norvasc*) 5 Mg Tablet, 5 MG GTB BID, TAB TAKE Q TUE,ANDREW,SAT FOR HTN, HOLD FOR SBP<110 OR RI<60 10/16/18 Acetaminophen* (Acetaminophen*) 650 Mg Tablet, 650 MG GTB Q6H PRN for PAIN LEVEL 1-10/10, #30 TAB 10/16/18 Medications Current Medications IV Flush (NS 3 ml) 3 ml PER PROTOCOL IV ; Start 11/16/18 at 09:00 Ondansetron HCl (Zofran Inj) 4 mg Q6H PRN IV NAUSEA AND/OR VOMITING; Start 11/16/18 at 09:00 Acetaminophen (Tylenol Tab) 650 mg Q6H PRN PO PAIN LEVEL 1-3 OR FEVER Last administered on 12/08/18at 00:22; Admin Dose 650 MG; Start 11/16/18 at 09:00 Docusate Sodium (Colace) 100 mg Q12H PRN PO CONSTIPATION; Start 11/16/18 at 09:00 Magnesium Hydroxide (Milk Of Mag) 30 ml DAILY PRN PO CONSTIPATION; Start 11/16/18 at 09:00 Folic Acid (Folic Acid) 1 mg DAILY GTB Last administered on 12/08/18 08:41; Admin Dose 1 MG; Start 11/16/18 at 09:00 Albuterol/ Ipratropium (Duoneb) 3 ml Q6 PRN HHN sob; Start 11/16/18 at 09:00 Linagliptin (Tradjenta) 5 mg DAILY GTB Last administered on 12/08/18 08:41; Admin Dose 5 MG; Start 11/16/18 at 09:00 Lorazepam (Ativan) 1 mg HS PRN GTB ANXIETY Last administered on 12/08/18 22:27; Admin Dose 1 MG; Start 11/16/18 at 09:00 Quetiapine Fumarate (Seroquel) 25 mg BID GTB Last administered on 12/08/18 22:27; Admin Dose 25 MG; Start 11/16/18 at 09:00 Senna (Senokot) 1 tab BID PO Last administered on 12/08/18 22:29; Admin Dose 1 TAB; Start 11/16/18 at 09:00 Valproate Sodium (Depakene Liquid Cup) 250 mg Q8 PO Last administered on 12/09/18 05:51; Admin Dose 250 MG; Start 11/16/18 at 14:00 Sodium Chloride (NS) -To prime the dialy... DIRECTED FOR HD PRN IV SBP<90; Start 11/16/18 at 15:00 Hydralazine HCl (Apresoline) 10 mg Q4H PRN IV ELEVATED BLOOD PRESSURE Last administered on 12/04/18 21:06; Admin Dose 10 MG; Start 11/17/18 at 10:30 Acetaminophen/ Hydrocodone Bitart ([place] (5/325)) 1 tab Q3H PRN PO MODERATE PAIN LEVEL 4-6 Last administered on 12/06/18 15:38; Admin Dose 1 TAB; Start 11/17/18 at 14:30 Metoprolol Tartrate (Lopressor) 50 mg BID GTB Last administered on 12/08/18 22:30; Admin Dose 50 MG; Start 11/18/18 at 09:00 Albumin Human 50 ml @ 100 mls/hr WITH DIALYSIS PRN IV SBP<90 Last administered on 11/22/18 11:25; Admin Dose 100 MLS/HR; Start 11/18/18 at 14:30 Morphine Sulfate (morphine) 6 mg Q4H PRN PO SEVERE PAIN LEVEL 7-10 Last administered on 11/27/18 00:35; Admin Dose 6 MG; Start 11/18/18 at 23:00 Docusate Sodium (Colace Liquid Cup) 100 mg DAILY GTB Last administered on 12/08/18 08:41; Admin Dose 100 MG; Start 11/19/18 at 09:30 Guaifenesin/ Dextromethorphan (Robitussin Dm Liquid Cup) 5 ml Q4H PRN PO cough Last administered on 12/07/18 23:55; Admin Dose 5 ML; Start 11/20/18 at 14:00 Multivit/Ca Carb/ B Cmplx/FA/Prenat (Kianna-Roque) 1 tab DAILY GTB Last administered on 12/08/18 08:41; Admin Dose 1 TAB; Start 11/24/18 at 09:00 Lansoprazole (Prevacid) 30 mg DAILY GTB Last administered on 12/08/18 08:41; Admin Dose 30 MG; Start 11/26/18 at 09:00 Acetaminophen (Tylenol Supp) 650 mg Q4H PRN RI MILD PAIN(1-3) OR TEMP>38C Last administered on 11/26/18 08:32; Admin Dose 650 MG; Start 11/26/18 at 08:30 Amlodipine Besylate (Norvasc) 5 mg BID GTB Last administered on 12/08/18 22:29; Admin Dose 5 MG; Start 12/04/18 at 21:00 Ferrous Sulfate (Feosol Liquid Cup) 300 mg BID GTB Last administered on 12/08/18 22:30; Admin Dose 300 MG; Start 12/05/18 at 09:30 Epoetin Michael (Epogen (Esrd)) 4,000 units MoWeFr@17 SC Last administered on 12/08 17:12; Admin Dose 4,000 UNITS; Start 12/06/18 at 17:00 Voriconazole (Vfend) 200 mg BID PO Last administered on 1/30/19at 22:29; Admin Dose 200 MG; Start 12/06/18 at 21:00 Hydralazine HCl (Apresoline) 50 mg Q8 PO Last administered on 12/09/18at 05:51; Admin Dose 50 MG; Start 12/07/18 at 22:00 Heparin Sodium (Porcine) (Heparin (1000 Units/ml)) 4,000 unit AFTER DIALYSIS CATHETER ; Start 12/07/18 at 17:30 Sodium Chloride (NS) -To prime the dialy... DIRECTED FOR HD PRN IV HD; Start 12/07/18 at 17:30 Assessment/Plan Hospital Course (Demo Recall) fungemia Right hand hematoma: Status post IND now Renal failure on dialysis Hypertension Dementia Anemia Possible GI bleed: Status post EGD AI Recommendations: transfusion with HD prn Dialysis as per renal team Neuro workup and treatment as per internal medicine Antibiotic as per ID and internal medicine Thank you for his referral. We will continue to follow along with you as needed basis CHRISTEN ESCOBEDO MD [facility] CHRISTEN ESCOBEDO MD Dec 09, 2018 07:04
[2018-12-09 07:52] VITALS: BP 127/54; PULSE 73; RESP 20
--- NOTE | 2018-12-09 08:01 | PN ---
DATE: 12/08/2018 SUBJECTIVE: Discussed with the staff. The patient has become agitated. No reported chest pain or p ressure. MEDICATIONS: Reviewed as per medical reconciliation sheet, which was personally reviewed. PHYSICAL EXAMINATION: VITAL SIGNS: Temperature 98, heart of 72, blood pressure 104/51, respirations 19, sat 91%. HEENT: Normocephalic, atraumatic. Elderly female. EYES: Pupils are equal. CARDIOVASCULAR: Regular rate and rhythm. PULMONARY: No wheezes. GASTROINTESTINAL: Soft, nontender. EXTREMITIES: With trivial edema. NEUROLOGIC: Comfortably sleeping now. PSYCHIATRIC: Appears to be calm at the moment. LABORATORY DATA: Showed WBC of 6.2, hemoglobin 7.7, platelet of 258. Sodium 141, potassium 3.9, BUN 73, creatinine 2.25, glucose 111. ASSESSMENT AND PLAN: 1. Fungemia. 2. Status post right hand hematoma on incision and drainage. 3. Renal failure. 4. Hypertension. 5. Anemia. 6. History of aortic valve disorder. RECOMMENDATIONS: Continue with current cardiac care. Dialysis as per renal. We will continue to hemal salomon as per internal medicine. Dictated By: CHRISTEN ESCOBEDO MD AV/NTS Conf#: [id number] DID#: [id number] CC: DYLON WALLS MD; CHRISS WELCH MD;*End*
[2018-12-09] MEDS: METOPROLOL 50 MG TAB GTB SCH ×2 (08:32→21:00)
[2018-12-09] MEDS: FOLIC ACID 1 MG TAB GTB SCH (08:32)
[2018-12-09] MEDS: VORICONAZOLE 200 MG TAB PO SCH ×2 (08:32→21:15)
[2018-12-09] MEDS: SENNA TAB PO SCH ×2 (08:32→21:15)
[2018-12-09] MEDS: LANSOPRAZOLE 30 MG CAP GTB SCH (08:32)
[2018-12-09] MEDS: QUETIAPINE 25 MG TAB GTB SCH ×2 (08:32→21:15)
[2018-12-09] MEDS: AMLODIPINE 5 MG TAB GTB SCH ×2 (08:33→21:00)
[2018-12-09] MEDS: FERROUS SULFATE 60 MG/ML 5ML CUP GTB SCH ×2 (08:33→21:14)
[2018-12-09] MEDS: MULTIVIT/CA CARB/B CMPLX/FA TAB GTB SCH (08:33)
[2018-12-09] MEDS: DOCUSATE SODIUM 10 MG/ML (10ML CUP) GTB SCH (08:33)
[2018-12-09] MEDS: LINAGLIPTIN 5 MG TABLET GTB SCH (08:33)
--- NOTE | 2018-12-09 13:17 | CONS ---
Assessment/Plan Assessment/Plan Assessment/Plan (Daily) a/p anemia no clinical gi bleed. hgb stable Consultation Date/Type/Reason Admit Date/Time Nov 16, 2018 at 05:51 Initial Consult Date 11/16/18 Type of Consult consult follow up Requesting Provider: DYLON WALLS MD Date/Time of Note DATE: 12/09/18 TIME: 13:16 Exam/Review of Systems Exam Vitals Vital Signs Date Temp Pulse Resp B/P (MAP) Pulse Ox O2 O2 Flow FiO2 Time Delivery Rate 12/09/18 97.4 73 20 127/54 94 Room Air 07:52 (78) 12/06/18 2.0 16:39 Intake and Output 12/08/18 12/08/18 12/09/18 1515:00 23:00 07:00 IntakeIntake Total 630 ml 340 ml OutputOutput Total 2400 ml BalanceBalance 630 ml -2060 ml Results Result Diagram: 12/09/18 0535 12/09/18 0535 Results 24hrs Laboratory Tests Test 12/09/18 05:35 White Blood Count 8.4 # Red Blood Count 2.96 L Hemoglobin 7.9 L Hematocrit 25.4 L Mean Corpuscular Volume 85.8 Mean Corpuscular Hemoglobin 26.7 L Mean Corpuscular Hemoglobin Concent 31.1 L Red Cell Distribution Width 16.7 H Platelet Count 260 Mean Platelet Volume 12.0 H Immature Granulocytes % 1.500 H Neutrophils % 74.1 Lymphocytes % 11.6 L Monocytes % 8.6 Eosinophils % 3.6 Basophils % 0.6 Nucleated Red Blood Cells % 0.6 H Immature Granulocytes # 0.130 H Neutrophils # 6.2 Lymphocytes # 1.0 Monocytes # 0.7 Eosinophils # 0.3 Basophils # 0.1 Nucleated Red Blood Cells # 0.1 H Sodium Level 139 Potassium Level 3.9 Chloride Level 99 Carbon Dioxide Level 32 H Anion Gap 8 Blood Urea Nitrogen 34 #H Creatinine 1.28 H Est Glomerular Filtrat Rate mL/min Glucose Level 97 Calcium Level 8.6 Phosphorus Level 2.5 # Magnesium Level 2.3 Medications Medication Current Medications IV Flush (NS 3 ml) 3 ml PER PROTOCOL IV ; Start 11/16/18 at 09:00 Ondansetron HCl (Zofran Inj) 4 mg Q6H PRN IV NAUSEA AND/OR VOMITING; Start 11/16 at 09:00 Acetaminophen (Tylenol Tab) 650 mg Q6H PRN PO PAIN LEVEL 1-3 OR FEVER Last administered on 12/08/18 00:22; Admin Dose 650 MG; Start 11/16/18 at 09:00 Docusate Sodium (Colace) 100 mg Q12H PRN PO CONSTIPATION; Start 11/16/18 at 09:00 Magnesium Hydroxide (Milk Of Mag) 30 ml DAILY PRN PO CONSTIPATION; Start 11/16/18 at 09:00 Folic Acid (Folic Acid) 1 mg DAILY GTB Last administered on 12/09/18 08:32; Admin Dose 1 MG; Start 11/16/18 at 09:00 Albuterol/ Ipratropium (Duoneb) 3 ml Q6 PRN HHN sob; Start 11/16/18 at 09:00 Linagliptin (Tradjenta) 5 mg DAILY GTB Last administered on 12/09/18 08:33; Admin Dose 5 MG; Start 11/16/18 at 09:00 Lorazepam (Ativan) 1 mg HS PRN GTB ANXIETY Last administered on 12/08/18 22:27; Admin Dose 1 MG; Start 11/16/18 at 09:00 Quetiapine Fumarate (Seroquel) 25 mg BID GTB Last administered on 12/09/18 08:32; Admin Dose 25 MG; Start 11/16/18 at 09:00 Senna (Senokot) 1 tab BID PO Last administered on 12/09/18 08:32; Admin Dose 1 TAB; Start 11/16/18 at 09:00 Valproate Sodium (Depakene Liquid Cup) 250 mg Q8 PO Last administered on 12/09/18at 05:51; Admin Dose 250 MG; Start 11/16/18 at 14:00 Sodium Chloride (NS) -To prime the dialy... DIRECTED FOR HD PRN IV SBP<90; Start 11/16/18 at 15:00 Hydralazine HCl (Apresoline) 10 mg Q4H PRN IV ELEVATED BLOOD PRESSURE Last administered on 12/04/18at 21:06; Admin Dose 10 MG; Start 11/17/18 at 10:30 Acetaminophen/ Hydrocodone Bitart ([place] (5/325)) 1 tab Q3H PRN PO MODERATE PAIN LEVEL 4-6 Last administered on 12/06/18 15:38; Admin Dose 1 TAB; Start 11/17/18 at 14:30 Metoprolol Tartrate (Lopressor) 50 mg BID GTB Last administered on 12/09/18 08:32; Admin Dose 50 MG; Start 11/18/18 at 09:00 Albumin Human 50 ml @ 100 mls/hr WITH DIALYSIS PRN IV SBP<90 Last administered on 11/22/18 11:25; Admin Dose 100 MLS/HR; Start 11/18/18 at 14:30 Morphine Sulfate (morphine) 6 mg Q4H PRN PO SEVERE PAIN LEVEL 7-10 Last administered on 11/27/18 00:35; Admin Dose 6 MG; Start 11/18/18 at 23:00 Docusate Sodium (Colace Liquid Cup) 100 mg DAILY GTB Last administered on 12/09/18 08:33; Admin Dose 100 MG; Start 11/19/18 at 09:30 Guaifenesin/ Dextromethorphan (Robitussin Dm Liquid Cup) 5 ml Q4H PRN PO cough Last administered on 12/07/18 23:55; Admin Dose 5 ML; Start 11/20/18 at 14:00 Multivit/Ca Carb/ B Cmplx/FA/Prenat (Kianna-Roque) 1 tab DAILY GTB Last administered on 12/09/18 08:33; Admin Dose 1 TAB; Start 11/24/18 at 09:00 Lansoprazole (Prevacid) 30 mg DAILY GTB Last administered on 12/09/18 08:32; Admin Dose 30 MG; Start 11/26/18 at 09:00 Acetaminophen (Tylenol Supp) 650 mg Q4H PRN IN MILD PAIN(1-3) OR TEMP>38C Last administered on 11/26/18 08:32; Admin Dose 650 MG; Start 11/26/18 at 08:30 Amlodipine Besylate (Norvasc) 5 mg BID GTB Last administered on 12/09/18 08:33; Admin Dose 5 MG; Start 12/04/18 at 21:00 Ferrous Sulfate (Feosol Liquid Cup) 300 mg BID GTB Last administered on 08:33; Admin Dose 300 MG; Start 12/05/18 at 09:30 Epoetin Michael (Epogen (Esrd)) 4,000 units MoWeFr@17 SC Last administered on 12/08/18at 17:12; Admin Dose 4,000 UNITS; Start 12/06/18 at 17:00 Voriconazole (Vfend) 200 mg BID PO Last administered on 12/09/18at 08:32; Admin Dose 200 MG; Start 12/06/18 at 21:00 Hydralazine HCl (Apresoline) 50 mg Q8 PO Last administered on 12/09/18at 05:51; Admin Dose 50 MG; Start 12/07/18 at 22:00 Heparin Sodium (Porcine) (Heparin (1000 Units/ml)) 4,000 unit AFTER DIALYSIS CATHETER ; Start 12/07/18 at 17:30 Sodium Chloride (NS) -To prime the dialy... DIRECTED FOR HD PRN IV HD; Start 12/07/18 at 17:30 ALICIA MARTINEZ MD Dec 09, 2018 13:17
[2018-12-09 14:17] VITALS: BP 107/46; PULSE 71; RESP 18
--- NOTE | 2018-12-09 14:44 | CONS ---
Assessment/Plan Assessment/Plan Hospital Course (Demo Recall) No acute changes, sleeping, looks comfortable, no feverfs Microbiology: Blood culture repeated on November 29 grew Dominique glabrata blood cultures since December 01 that were drawn from permacath negative blood culture on December 03 negative, urine culture growing C glabrata Antimicrobials: Vfend Indwelling: Left chest permacath, PEG Physical examination: Chronically ill-appearing elderly woman who is awake, confused, in no distress. Head atraumatic normocephalic. Neck is supple. Dora [address] rise symmetrical breath sounds diminished bases. Heart: S1-S2. Abdomen soft bowel sounds present, right upper extremity Armani wrapped Assessment: 1. Fungemia secondary to urinary tract infection 2. S/p pneumonia, possibly aspiration 3. Right hand hematoma, status post I&D 11/17/18 4. Status post VRE bacteremia/new Pcath 5. End-stage renal disease, hemodialysis dependent 6. Dementia 7. Failure to thrive 8. Diabetes 9. Anemia 10. S/p sepsis Plan: Remains stable, continue on Vfend==> last dose on December 16. Consultation Date/Type/Reason Admit Date/Time Nov 16, 2018 at 05:51 Initial Consult Date 11/16/18 Type of Consult id Requesting Provider: DYLON WALLS MD Date/Time of Note DATE: 12/09/18 TIME: 14:42 Exam/Review of Systems Exam Vitals Vital Signs Date Temp Pulse Resp B/P (MAP) Pulse Ox O2 O2 Flow FiO2 Time Delivery Rate 12/09/18 97.6 71 18 107/46 94 Room Air 14:17 (66) 12/06/18 2.0 16:39 Intake and Output 12/08/18 12/08/18 12/09/18 1515:00 23:00 07:00 IntakeIntake Total 630 ml 340 ml OutputOutput Total 2400 ml BalanceBalance 630 ml -2060 ml Results Result Diagram: 12/09/1835 12/09/1835 Results 24hrs Laboratory Tests Test 12/09/18 05:35 White Blood Count 8.4 # Red Blood Count 2.96 L Hemoglobin 7.9 L Hematocrit 25.4 L Mean Corpuscular Volume 85.8 Mean Corpuscular Hemoglobin 26.7 L Mean Corpuscular Hemoglobin Concent 31.1 L Red Cell Distribution Width 16.7 H Platelet Count 260 Mean Platelet Volume 12.0 H Immature Granulocytes % 1.500 H Neutrophils % 74.1 Lymphocytes % 11.6 L Monocytes % 8.6 Eosinophils % 3.6 Basophils % 0.6 Nucleated Red Blood Cells % 0.6 H Immature Granulocytes # 0.130 H Neutrophils # 6.2 Lymphocytes # 1.0 Monocytes # 0.7 Eosinophils # 0.3 Basophils # 0.1 Nucleated Red Blood Cells # 0.1 H Sodium Level 139 Potassium Level 3.9 Chloride Level 99 Carbon Dioxide Level 32 H Anion Gap 8 Blood Urea Nitrogen 34 #H Creatinine 1.28 H Est Glomerular Filtrat Rate mL/min Glucose Level 97 Calcium Level 8.6 Phosphorus Level 2.5 # Magnesium Level 2.3 Medications Medication Current Medications IV Flush (NS 3 ml) 3 ml PER PROTOCOL IV ; Start 11/16/18 at 09:00 Ondansetron HCl (Zofran Inj) 4 mg Q6H PRN IV NAUSEA AND/OR VOMITING; Start 11/16/18 at 09:00 Acetaminophen (Tylenol Tab) 650 mg Q6H PRN PO PAIN LEVEL 1-3 OR FEVER Last administered on 12/08/18at 00:22; Admin Dose 650 MG; Start 11/16/18 at 09:00 Docusate Sodium (Colace) 100 mg Q12H PRN PO CONSTIPATION; Start 11/16/18 at 09:00 Magnesium Hydroxide (Milk Of Mag) 30 ml DAILY PRN PO CONSTIPATION; Start 11/16/18 at 09:00 Folic Acid (Folic Acid) 1 mg DAILY GTB Last administered on 12/09/18at 08:32; Admin Dose 1 MG; Start 11/16/18 at 09:00 Albuterol/ Ipratropium (Duoneb) 3 ml Q6 PRN HHN sob; Start 11/16/18 at 09:00 Linagliptin (Tradjenta) 5 mg DAILY GTB Last administered on 12/09/18at 08:33; Admin Dose 5 MG; Start 11/16/18 at 09:00 Lorazepam (Ativan) 1 mg HS PRN GTB ANXIETY Last administered on 12/08/18at 22:27; Admin Dose 1 MG; Start 11/16/18 at 09:00 Quetiapine Fumarate (Seroquel) 25 mg BID GTB Last administered on 12/09/18at 08:32; Admin Dose 25 MG; Start 11/16/18 at 09:00 Senna (Senokot) 1 tab BID PO Last administered on 12/09/18 08:32; Admin Dose 1 TAB; Start 11/16/18 at 09:00 Valproate Sodium (Depakene Liquid Cup) 250 mg Q8 PO Last administered on 12/09/18 13:23; Admin Dose 250 MG; Start 11/16/18 at 14:00 Sodium Chloride (NS) -To prime the dialy... DIRECTED FOR HD PRN IV SBP<90; Start 11/16/18 at 15:00 Hydralazine HCl (Apresoline) 10 mg Q4H PRN IV ELEVATED BLOOD PRESSURE Last administered on 12/04/18 21:06; Admin Dose 10 MG; Start 11/17/18 at 10:30 Acetaminophen/ Hydrocodone Bitart ([place] (5/325)) 1 tab Q3H PRN PO MODERATE PAIN LEVEL 4-6 Last administered on 12/06/18 15:38; Admin Dose 1 TAB; Start 11/17/18 at 14:30 Metoprolol Tartrate (Lopressor) 50 mg BID GTB Last administered on 12/09/18 08:32; Admin Dose 50 MG; Start 11/18/18 at 09:00 Albumin Human 50 ml @ 100 mls/hr WITH DIALYSIS PRN IV SBP<90 Last administered on 11/22/18 11:25; Admin Dose 100 MLS/HR; Start 11/18/18 at 14:30 Morphine Sulfate (morphine) 6 mg Q4H PRN PO SEVERE PAIN LEVEL 7-10 Last administered on 11/27/18 00:35; Admin Dose 6 MG; Start 11/18/18 at 23:00 Docusate Sodium (Colace Liquid Cup) 100 mg DAILY GTB Last administered on 12/09/18 08:33; Admin Dose 100 MG; Start 11/19/18 at 09:30 Guaifenesin/ Dextromethorphan (Robitussin Dm Liquid Cup) 5 ml Q4H PRN PO cough Last administered on 12/07/18 23:55; Admin Dose 5 ML; Start 11/20/18 at 14:00 Multivit/Ca Carb/ B Cmplx/FA/Prenat (Kianna-Roque) 1 tab DAILY GTB Last administered on 12/09/18 08:33; Admin Dose 1 TAB; Start 11/24/18 at 09:00 Lansoprazole (Prevacid) 30 mg DAILY GTB Last administered on 12/09/18 08:32; Admin Dose 30 MG; Start 11/26/18 at 09:00 Acetaminophen (Tylenol Supp) 650 mg Q4H PRN AR MILD PAIN(1-3) OR TEMP>38C Last administered on 11/26/18 08:32; Admin Dose 650 MG; Start 11/26/18 at 08:30 Amlodipine Besylate (Norvasc) 5 mg BID GTB Last administered on 12/09/18 08:33; Admin Dose 5 MG; Start 12/04/18 at 21:00 Ferrous Sulfate (Feosol Liquid Cup) 300 mg BID GTB Last administered on 12/09/18 08:33; Admin Dose 300 MG; Start 12/05/18 at 09:30 Epoetin Michael (Epogen (Esrd)) 4,000 units MoWeFr@17 SC Last administered on 12/08/18 17:12; Admin Dose 4,000 UNITS; Start 12/06/18 at 17:00 Voriconazole (Vfend) 200 mg BID PO Last administered on 12/09/18 08:32; Admin Dose 200 MG; Start 12/06/18 at 21:00 Hydralazine HCl (Apresoline) 50 mg Q8 PO Last administered on 12/09/18 05:51; Admin Dose 50 MG; Start 12/07/18 at 22:00 Heparin Sodium (Porcine) (Heparin (1000 Units/ml)) 4,000 unit AFTER DIALYSIS CATHETER ; Start 12/07/18 at 17:30 Sodium Chloride (NS) -To prime the dialy... DIRECTED FOR HD PRN IV HD; Start 12/07/18 at 17:30 PHYLICIA HOLCOMB NP Dec 09, 2018 14:43
--- NOTE | 2018-12-09 16:00 | CONS ---
Assessment/Plan Assessment/Plan Hospital Course (Demo Recall) 83 y/o with Hospital Course (Demo Recall) 1. End-stage renal disease on hemodialysis. 2. Gastrointestinal bleed with melena. 3. Hypertension. 4. Diabetes. 5. Right hand swelling, s/p I and D on 11/17/18 6. History of falls. 7. Vascular dementia. 8. History of sepsis with VRE. 9. Dysphagia, status post G-tube. 10. History of hip fracture. 11. Thrombocytopenia. 12. Atherosclerotic heart disease. 13. Pneumonia left side 14. Anemia 15 YEAST BACTERIMIA LIKELY DUE TO UTI Assessment/Plan (Daily) - hd tmw - vfend with ID - cw with permacath -avoid nephrotoxic drugs -HD MWFr -c/w epogen - Aspiration precautions Consultation Date/Type/Reason Admit Date/Time Nov 16, 2018 at 05:51 Initial Consult Date 11/16/18 Requesting Provider: DYLON WALLS MD Date/Time of Note DATE: 12/09/18 TIME: 15:59 24 HR Interval Summary Free Text/Dictation s/p Hd yesterday pt sleeping Exam/Review of Systems Exam Vitals Vital Signs Date Temp Pulse Resp B/P (MAP) Pulse Ox O2 O2 Flow FiO2 Time Delivery Rate 12/09/18 97.6 71 18 107/46 94 Room Air 14:17 (66) 12/06/18 2.0 16:39 Intake and Output 12/08/18 12/08/18 12/09/18 1515:00 23:00 07:00 IntakeIntake Total 630 ml 340 ml OutputOutput Total 2400 ml BalanceBalance 630 ml -2060 ml Exam right chest Permcath Constitutional: sleepy Respiratory: clear to auscultation Cardiovascular: regular rate and rhythm Gastrointestinal: soft, surgical scars (G tube) Results Result Diagram: 12/09/18 0535 12/09/18 0535 Results 24hrs Laboratory Tests Test 12/09/18 05:35 White Blood Count 8.4 # Red Blood Count 2.96 L Hemoglobin 7.9 L Hematocrit 25.4 L Mean Corpuscular Volume 85.8 Mean Corpuscular Hemoglobin 26.7 L Mean Corpuscular Hemoglobin Concent 31.1 L Red Cell Distribution Width 16.7 H Platelet Count 260 Mean Platelet Volume 12.0 H Immature Granulocytes % 1.500 H Neutrophils % 74.1 Lymphocytes % 11.6 L Monocytes % 8.6 Eosinophils % 3.6 Basophils % 0.6 Nucleated Red Blood Cells % 0.6 H Immature Granulocytes # 0.130 H Neutrophils # 6.2 Lymphocytes # 1.0 Monocytes # 0.7 Eosinophils # 0.3 Basophils # 0.1 Nucleated Red Blood Cells # 0.1 H Sodium Level 139 Potassium Level 3.9 Chloride Level 99 Carbon Dioxide Level 32 H Anion Gap 8 Blood Urea Nitrogen 34 #H Creatinine 1.28 H Est Glomerular Filtrat Rate mL/min Glucose Level 97 Calcium Level 8.6 Phosphorus Level 2.5 # Magnesium Level 2.3 Medications Medication Current Medications IV Flush (NS 3 ml) 3 ml PER PROTOCOL IV ; Start 11/16/18 at 09:00 Ondansetron HCl (Zofran Inj) 4 mg Q6H PRN IV NAUSEA AND/OR VOMITING; Start 11/16/18 at 09:00 Acetaminophen (Tylenol Tab) 650 mg Q6H PRN PO PAIN LEVEL 1-3 OR FEVER Last administered on 12/08/18at 00:22; Admin Dose 650 MG; Start 11/16/18 at 09:00 Docusate Sodium (Colace) 100 mg Q12H PRN PO CONSTIPATION; Start 11/16/18 at 09:00 Magnesium Hydroxide (Milk Of Mag) 30 ml DAILY PRN PO CONSTIPATION; Start at 09:00 Folic Acid (Folic Acid) 1 mg DAILY GTB Last administered on 12/09/18at 08:32; Admin Dose 1 MG; Start 11/16/18 at 09:00 Albuterol/ Ipratropium (Duoneb) 3 ml Q6 PRN HHN sob; Start 11/16/18 at 09:00 Linagliptin (Tradjenta) 5 mg DAILY GTB Last administered on 12/09/18at 08:33; Admin Dose 5 MG; Start 11/16/18 at 09:00 Lorazepam (Ativan) 1 mg HS PRN GTB ANXIETY Last administered on 12/08/18at 22:27; Admin Dose 1 MG; Start 11/16/18 at 09:00 Quetiapine Fumarate (Seroquel) 25 mg BID GTB Last administered on 12/09/18 08:32; Admin Dose 25 MG; Start 11/16/18 at 09:00 Senna (Senokot) 1 tab BID PO Last administered on 12/09/18 08:32; Admin Dose 1 TAB; Start 11/16/18 at 09:00 Valproate Sodium (Depakene Liquid Cup) 250 mg Q8 PO Last administered on 12/09/18 13:23; Admin Dose 250 MG; Start 11/16/18 at 14:00 Sodium Chloride (NS) -To prime the dialy... DIRECTED FOR HD PRN IV SBP<90; Start 11/16/18 at 15:00 Hydralazine HCl (Apresoline) 10 mg Q4H PRN IV ELEVATED BLOOD PRESSURE Last administered on 12/04/18 21:06; Admin Dose 10 MG; Start 11/17/18 at 10:30 Acetaminophen/ Hydrocodone Bitart ([place] (5/325)) 1 tab Q3H PRN PO MODERATE PAIN LEVEL 4-6 Last administered on 12/06/18 15:38; Admin Dose 1 TAB; Start 11/17/18 at 14:30 Metoprolol Tartrate (Lopressor) 50 mg BID GTB Last administered on 12/09/18 08:32; Admin Dose 50 MG; Start 11/18/18 at 09:00 Albumin Human 50 ml @ 100 mls/hr WITH DIALYSIS PRN IV SBP<90 Last administered on 11/22/18 11:25; Admin Dose 100 MLS/HR; Start 11/18/18 at 14:30 Morphine Sulfate (morphine) 6 mg Q4H PRN PO SEVERE PAIN LEVEL 7-10 Last administered on 11/27/18 00:35; Admin Dose 6 MG; Start 11/18/18 at 23:00 Docusate Sodium (Colace Liquid Cup) 100 mg DAILY GTB Last administered on 12/09/18 08:33; Admin Dose 100 MG; Start 11/19/18 at 09:30 Guaifenesin/ Dextromethorphan (Robitussin Dm Liquid Cup) 5 ml Q4H PRN PO cough Last administered on 12/07/18 23:55; Admin Dose 5 ML; Start 11/20/18 at 14:00 Multivit/Ca Carb/ B Cmplx/FA/Prenat (Kianna-Roque) 1 tab DAILY GTB Last administered on 12/09/18 08:33; Admin Dose 1 TAB; Start 11/24/18 at 09:00 Lansoprazole (Prevacid) 30 mg DAILY GTB Last administered on 12/09/18 08:32; Admin Dose 30 MG; Start 11/26/18 at 09:00 Acetaminophen (Tylenol Supp) 650 mg Q4H PRN [place] MILD PAIN(1-3) OR TEMP>38C Last administered on 11/26/18 08:32; Admin Dose 650 MG; Start 11/26/18 at 08:30 Amlodipine Besylate (Norvasc) 5 mg BID GTB Last administered on 12/09/18 08:33; Admin Dose 5 MG; Start 12/04/18 at 21:00 Ferrous Sulfate (Feosol Liquid Cup) 300 mg BID GTB Last administered on 12/09/18 08:33; Admin Dose 300 MG; Start 12/05/18 at 09:30 Epoetin Michael (Epogen (Esrd)) 4,000 units MoWeFr@17 SC Last administered on 12/08/18 17:12; Admin Dose 4,000 UNITS; Start 12/06/18 at 17:00 Voriconazole (Vfend) 200 mg BID PO Last administered on 12/09/18 08:32; Admin Dose 200 MG; Start 12/06/18 at 21:00 Hydralazine HCl (Apresoline) 50 mg Q8 PO Last administered on 12/09/18at 05:51; Admin Dose 50 MG; Start 12/07/18 at 22:00 Heparin Sodium (Porcine) (Heparin (1000 Units/ml)) 4,000 unit AFTER DIALYSIS CATHETER ; Start 12/07/18 at 17:30 Sodium Chloride (NS) -To prime the dialy... DIRECTED FOR HD PRN IV HD; Start 12/07/18 at 17:30 JOSE RAUL ANDREWS MD Dec 09, 2018 16:00
[2018-12-09 20:00] VITALS: BP_SYST 103; BP_SYST 105; BP_DIAS 42; PULSE 84; RESP 18
--- NOTE | 2018-12-09 23:46 | PN ---
DATE: 12/09/2018 SUBJECTIVE: The patient was seen. The patient is sleeping, comfortable. No dialysis today. Hemogl obin remained slightly low at 7.9. We will monitor tomorrow to see if she needs a transfusion. PHYSICAL EXAMINATION: VITAL SIGNS: Temperature 97.6, pulse 71, respirations 18, blood pressure 107/46, saturation 94% on r oom air. GENERAL: In no acute distress. HEENT: Normocephalic, atraumatic, pale. CARDIOVASCULAR: S1, S2. LUNGS: Clear bilaterally, faint rhonchi at the bases. ABDOMEN: Soft. G-tube in place. Left IJ in place. EXTREMITIES: No clubbing, cyanosis or edema. LABORATORY DATA: White count 8.4, hemoglobin 7.0, hematocrit 25, platelets 260 with normal different ial. Chemistry: Sodium 129, potassium 3.8, chloride 99, bicarbonate 32, BUN 34, creatinine 1.28, gl ucose of 97. Urine culture did show Dominique glabrata on 12/06/2018. MEDICATIONS: The patient's chronic meds were all reviewed, includin. Hydralazine. 2. Heparin. 3. . 4. Epogen. 5. Ferrous sulfate. 6. Norvasc. 7. Prevacid. 8. Tylenol. 9. Kianna-Roque. 10. Robitussin. 11. Colace. 12. Morphine. 13. Albumin. 14. Lopressor. 15. Climax. 16. Depakote. 17. Zofran. 18. Milk of magnesia. 19. Folic acid. 20. DuoNeb. 21. Tradjenta. 22. Ativan. 23. Seroquel. 24. Senna. Some of them are routine and some of them are p.r.n. medications. Overall, all meds were reviewed. ASSESSMENT AND PLAN: This is an 83-year-old [place] female with end-stage renal disease, dementia, CKD, COPD who presented with right hand hematoma status post evacuation, also was treated for pneumon ia and fungemia, also UTI, Dominique glabrata. 1. Respiratory. Clinically stable. Observe status post treated for pneumonia. Continue O2 support as needed. 2. Cardiovascular. Vitals are stable. 3. Infectious disease. The patient is currently being treated for fungemia and urinary tract infect ion with recent antibiotics, to continue until 02/13/2019 per ID. 4. End-stage renal disease. 5. Dialysis, due for tomorrow. 6. Anemia. May benefit from Epogen. Transfuse p.r.n. Monitor tomorrow her hemoglobin and hematocr it. 7. Dysphagia. Continue G-tube feeding. Dietary will be consulted. The patient is not eating much by mouth. We will need to increase G-tube boluses probably from 4 to 5, but dietary will decide. 8. Transfer to the assisted facility if medications to be provided as needed. The case was d iscussed with case management. 9. Diabetes mellitus, overall well controlled. Glucose level in the 100s. We will continue to maribel tor closely. Continue Tradjenta. 10. Remains on 1:1 due to high-risk of fall and danger to self. We will follow. Dictated By: DYLON HULL/MADAN Conf#: [id number] DID#: [id number]
[2018-12-10] VITALS (20 sets, daily range): BP systolic 98–157; BP diastolic 42–69; PULSE 77–124; RESP 16–19
[2018-12-10] MEDS: LORAZEPAM 1 MG TAB GTB PRN (03:05)
[2018-12-10] MEDS: ACETAMINOPHEN 325 MG TAB PO PRN (03:05)
[2018-12-10] MEDS: VALPROIC ACID LIQUID CUP 250 MG/5 ML CUP PO SCH ×3 (05:46→21:47)
--- NOTE | 2018-12-10 07:56 | CONS ---
Assessment/Plan Assessment/Plan Hospital Course (Demo Recall) 83 yo female in ESRD on HD presents for melena and anemia and also found to have edematous Rt hand/wrist 1. UGIB manifested through melena and anemia -no melena noted or GI bleeding noted by nursing staff -RESOLVED 2. Anemia, acute on chronic, acute likely due to blood loss in rt hand -Hgb 6.8->10.6->9.2->8.3 -No evidence of active GI bleeding, consider etiology of blood loss anemia to be from hematoma in hand -s/p 2 units with HD on 11/17 -Fe wnl, TIBC low, Ferritin, folate, b12 high, FOB neg -STABLE 3. ESRD on HD -Followed by nephrology 4. Hematoma of Rt hand and wrist -I and D drainage by Dr. Dean 11/17 -IMPROVED 5. Dysphagia -on tube feeds and pureed nectar for oral gratification -Tube feeds boluses QID 6. DM2 7. HTN 8. H/O diastolic dysfunction heart failure 9. S/P EGD 11/18 10. Moderate gastritis with no bleeding noted. 11. Hospital acquired pneumonia -improved 12. Yeast in blood cx -improved Gastric biopsy results: Stomach, biopsy: -- Antral and oxyntic mucosa showing minimal plasma cell infiltration and small focus of intestinal metaplasia. -- No Helicobacter pylori is identified in Giemsa stain (positive control concurrently reviewed). -- No evidence of dysplasia or malignancy. Plan: Cont abx Continue present care Monitor HH closely and for active GI bleeding PPI BID Pt examined and plan of care discussed with Dr. Baird Consultation Date/Type/Reason Admit Date/Time Nov 16, 2018 at 05:51 Initial Consult Date 11/16/18 Requesting Provider: DYLON WALLS MD Date/Time of Note DATE: 12/10/18 TIME: 07:55 24 HR Interval Summary Free Text/Dictation No evidence of GI bleeding. Tolerating tube feeds Exam/Review of Systems Exam Vitals Vital Signs Date Temp Pulse Resp B/P (MAP) Pulse Ox O2 O2 Flow FiO2 Time Delivery Rate 12/10/18 98.2 90 18 121/51 96 Room Air 07:43 (74) 12/06/18 2.0 16:39 Intake and Output 12/09/18 12/09/18 12/10/18 1515:00 23:00 07:00 IntakeIntake Total 340 ml BalanceBalance 340 ml Constitutional: alert Gastrointestinal: soft, non-tender, other (g tube site intact) 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: confused Results Result Diagram: 12/10/1812 12/10/18 0512 Results 24hrs Laboratory Tests Test 12/10/18 05:12 White Blood Count 9.6 Red Blood Count 3.15 L Hemoglobin 8.4 L Hematocrit 26.8 L Mean Corpuscular Volume 85.1 Mean Corpuscular Hemoglobin 26.7 L Mean Corpuscular Hemoglobin Concent 31.3 L Red Cell Distribution Width 16.8 H Platelet Count 271 Mean Platelet Volume 12.5 H Immature Granulocytes % 1.500 H Neutrophils % 71.8 Lymphocytes % 13.3 L Monocytes % 8.8 Eosinophils % 4.1 Basophils % 0.5 Nucleated Red Blood Cells % 0.9 H Immature Granulocytes # 0.140 H Neutrophils # 6.9 Lymphocytes # 1.3 Monocytes # 0.9 Eosinophils # 0.4 Basophils # 0.1 Nucleated Red Blood Cells # 0.1 H Sodium Level 138 Potassium Level 4.1 Chloride Level 102 Carbon Dioxide Level 31 Anion Gap 5 Blood Urea Nitrogen 72 #H Creatinine 2.17 H Est Glomerular Filtrat Rate mL/min Glucose Level 99 Calcium Level 8.5 Phosphorus Level 3.5 Magnesium Level 2.3 Medications Medication Current Medications IV Flush (NS 3 ml) 3 ml PER PROTOCOL IV ; Start 11/16/18 at 09:00 Ondansetron HCl (Zofran Inj) 4 mg Q6H PRN IV NAUSEA AND/OR VOMITING; Start 11/16/18 at 09:00 Acetaminophen (Tylenol Tab) 650 mg Q6H PRN PO PAIN LEVEL 1-3 OR FEVER Last administered on 12/10/18at 03:05; Admin Dose 650 MG; Start 11/16/18 at 09:00 Docusate Sodium (Colace) 100 mg Q12H PRN PO CONSTIPATION; Start 11/16/18 at 09:00 Magnesium Hydroxide (Milk Of Mag) 30 ml DAILY PRN PO CONSTIPATION; Start 11/16/18 at 09:00 Folic Acid (Folic Acid) 1 mg DAILY GTB Last administered on 12/09/18at 08:32; Admin Dose 1 MG; Start 11/16/18 at 09:00 Albuterol/ Ipratropium (Duoneb) 3 ml Q6 PRN HHN sob; Start 11/16/18 at 09:00 Linagliptin (Tradjenta) 5 mg DAILY GTB Last administered on 12/09/18 08:33; Admin Dose 5 MG; Start 11/16/18 at 09:00 Lorazepam (Ativan) 1 mg HS PRN GTB ANXIETY Last administered on 12/10/18 03:05; Admin Dose 1 MG; Start 11/16/18 at 09:00 Quetiapine Fumarate (Seroquel) 25 mg BID GTB Last administered on 12/09/18 21:15; Admin Dose 25 MG; Start 11/16/18 at 09:00 Senna (Senokot) 1 tab BID PO Last administered on 12/09/18 21:15; Admin Dose 1 TAB; Start 11/16/18 at 09:00 Valproate Sodium (Depakene Liquid Cup) 250 mg Q8 PO Last administered on 12/10/18 05:46; Admin Dose 250 MG; Start 11/16/18 at 14:00 Sodium Chloride (NS) -To prime the dialy... DIRECTED FOR HD PRN IV SBP<90; Start 11/16/18 at 15:00 Hydralazine HCl (Apresoline) 10 mg Q4H PRN IV ELEVATED BLOOD PRESSURE Last administered on 12/04/18 21:06; Admin Dose 10 MG; Start 11/17/18 at 10:30 Acetaminophen/ Hydrocodone Bitart ([place] (5/325)) 1 tab Q3H PRN PO MODERATE PAIN LEVEL 4-6 Last administered on 12/06/18 15:38; Admin Dose 1 TAB; Start 11/17/18 at 14:30 Metoprolol Tartrate (Lopressor) 50 mg BID GTB Last administered on 12/09/18 08:32; Admin Dose 50 MG; Start 11/18/18 at 09:00 Albumin Human 50 ml @ 100 mls/hr WITH DIALYSIS PRN IV SBP<90 Last administered on 11/22/18 11:25; Admin Dose 100 MLS/HR; Start 11/18/18 at 14:30 Morphine Sulfate (morphine) 6 mg Q4H PRN PO SEVERE PAIN LEVEL 7-10 Last administered on 11/27/18at 00:35; Admin Dose 6 MG; Start 11/18/18 at 23:00 Docusate Sodium (Colace Liquid Cup) 100 mg DAILY GTB Last administered on 12/09/18 08:33; Admin Dose 100 MG; Start 11/19/18 at 09:30 Guaifenesin/ Dextromethorphan (Robitussin Dm Liquid Cup) 5 ml Q4H PRN PO cough Last administered on 12/07/18 23:55; Admin Dose 5 ML; Start 11/20/18 at 14:00 Multivit/Ca Carb/ B Cmplx/FA/Prenat ([place]ianna-Roque) 1 tab DAILY GTB Last administered on 12/09/18 08:33; Admin Dose 1 TAB; Start 11/24/18 at 09:00 Lansoprazole (Prevacid) 30 mg DAILY GTB Last administered on 12/09/18 08:32; Admin Dose 30 MG; Start 11/26/18 at 09:00 Acetaminophen (Tylenol Supp) 650 mg Q4H PRN [place] MILD PAIN(1-3) OR TEMP>38C Last administered on 11/26/18 08:32; Admin Dose 650 MG; Start 11/26/18 at 08:30 Amlodipine Besylate (Norvasc) 5 mg BID GTB Last administered on 12/09/18 08:33; Admin Dose 5 MG; Start 12/04/18 at 21:00 Ferrous Sulfate (Feosol Liquid Cup) 300 mg BID GTB Last administered on 12/09/18 21:14; Admin Dose 300 MG; Start 12/05/18 at 09:30 Epoetin Michael (Epogen (Esrd)) 4,000 units MoWeFr@17 SC Last administered on 12/08/18 17:12; Admin Dose 4,000 UNITS; Start 12/06/18 at 17:00 Voriconazole (Vfend) 200 mg BID PO Last administered on 12/09/18 21:15; Admin Dose 200 MG; Start 12/06/18 at 21:00 Hydralazine HCl (Apresoline) 50 mg Q8 PO Last administered on 12/09/18 05:51; Admin Dose 50 MG; Start 12/07/18 at 22:00 Heparin Sodium (Porcine) (Heparin (1000 Units/ml)) 4,000 unit AFTER DIALYSIS CATHETER ; Start 12/07/18 at 17:30 Sodium Chloride (NS) -To prime the dialy... DIRECTED FOR HD PRN IV HD; Start 12/07/18 at 17:30 TONY VENCES Dec 10, 2018 07:56
[2018-12-10] MEDS: MULTIVIT/CA CARB/B CMPLX/FA TAB GTB SCH (08:34)
[2018-12-10] MEDS: VORICONAZOLE 200 MG TAB PO SCH ×2 (08:34→20:06)
[2018-12-10] MEDS: FOLIC ACID 1 MG TAB GTB SCH (08:34)
[2018-12-10] MEDS: QUETIAPINE 25 MG TAB GTB SCH ×2 (08:34→20:06)
[2018-12-10] MEDS: FERROUS SULFATE 60 MG/ML 5ML CUP GTB SCH ×2 (08:34→20:06)
[2018-12-10] MEDS: LANSOPRAZOLE 30 MG CAP GTB SCH (08:34)
[2018-12-10] MEDS: DOCUSATE SODIUM 10 MG/ML (10ML CUP) GTB SCH (08:35)
[2018-12-10] MEDS: METOPROLOL 50 MG TAB GTB SCH ×2 (08:36→20:06)
[2018-12-10] MEDS: AMLODIPINE 5 MG TAB GTB SCH ×2 (08:37→20:06)
[2018-12-10] MEDS: SENNA TAB PO SCH ×2 (08:37→20:07)
[2018-12-10] MEDS: LINAGLIPTIN 5 MG TABLET GTB SCH (08:43)
--- NOTE | 2018-12-10 09:11 | CONS ---
Consult Date/Type/Reason Admit Date/Time Nov 16, 2018 at 05:51 Initial Consult Date 11/16/18 Type of Consultation: cv Requesting Provider: DYLON WALLS MD Date/Time of Note DATE: 12/10/18 TIME: 09:10 Subjective Cardiology follow up note Sl DW/ Staff pt is STILL CONFUSED and intermittently agitated no report of any chest pain or pressure or palpitations but pt is a very poor historian s/p I/D 11/17 EGD 11.18.18 O: General: Elderly frail male in no acute distress HEENT: NC/AT. pupils are equal. round. NECK: NO JVD. no stridor. CV: RRR. systolic murmur; no gallop or rubs. PULM: no wheezing or rhonchi. GI: SOFT, NT, ND, no rebound or guarding neuro: Sleeping now Psych: Calm at the moment rectal: deferred Objective Vitals Vital Signs Date Temp Pulse Resp B/P (MAP) Pulse Ox O2 O2 Flow FiO2 Time Delivery Rate 12/10/18 98.2 90 18 121/51 96 Room Air 07:43 (74) 12/06/18 2.0 16:39 Intake and Output 12/09/18 12/09/18 12/10/18 1515:00 23:00 07:00 IntakeIntake Total 340 ml BalanceBalance 340 ml Results/Medications Result Diagram: 12/10/1812 12/10/18 0512 Results 24 hrs Laboratory Tests Test 12/10/18 05:12 White Blood Count 9.6 Red Blood Count 3.15 L Hemoglobin 8.4 L Hematocrit 26.8 L Mean Corpuscular Volume 85.1 Mean Corpuscular Hemoglobin 26.7 L Mean Corpuscular Hemoglobin Concent 31.3 L Red Cell Distribution Width 16.8 H Platelet Count 271 Mean Platelet Volume 12.5 H Immature Granulocytes % 1.500 H Neutrophils % 71.8 Lymphocytes % 13.3 L Monocytes % 8.8 Eosinophils % 4.1 Basophils % 0.5 Nucleated Red Blood Cells % 0.9 H Immature Granulocytes # 0.140 H Neutrophils # 6.9 Lymphocytes # 1.3 Monocytes # 0.9 Eosinophils # 0.4 Basophils # 0.1 Nucleated Red Blood Cells # 0.1 H Sodium Level 138 Potassium Level 4.1 Chloride Level 102 Carbon Dioxide Level 31 Anion Gap 5 Blood Urea Nitrogen 72 #H Creatinine 2.17 H Est Glomerular Filtrat Rate mL/min Glucose Level 99 Calcium Level 8.5 Phosphorus Level 3.5 Magnesium Level 2.3 Home Meds Reported Medications Sennosides* (Senna Lax*) 8.6 Mg Tablet, 1 TAB PO BID, TAB 11/16/18 Sevelamer Carbonate* (Renvela*) 0.8 Gm Powd.pack, 0.8 GM PO WITH MEALS, PACKET 11/16/18 Lansoprazole* (Lansoprazole*) 30 Mg Capsule.dr, 30 MG PO QAM, CAP 11/16/18 Hydralazine Hcl* (Hydralazine Hcl*) 25 Mg Tab, 25 MG PO Q8, #90 TAB 11/16/18 Ferrous Sulfate* (Ferrous Sulfate*) 325 Mg Tabec, 325 MG PO BID for anemia, TAB 11/16/18 Valproate Sodium (Valproic Acid) 250 Mg/5 Ml Solution, 250 MG PO Q8, ML 11/16/18 Insulin Aspart* (Novolog Insulin Pen*) 100 Unit/Ml Soln, 0 SC .SLIDING SCALE AC, EA IF BS 160-200=2 UNITS,201-250=4 UNITS,251-300=8 UNITS,301-350=12 UNITS;351-400=16 UNITS THEN CALL MD. 10/16/18 Ondansetron Hcl* (Zofran*) 4 Mg Tab, 4 MG GTB Q4H PRN for NAUSEA AND OR VOMITING, TAB 10/16/18 Linagliptin (TRADJENTA) 5 Mg Tablet, 5 MG GTB DAILY, TAB 10/16/18 Quetiapine Fumarate* (Seroquel*) 25 Mg Tablet, 25 MG GTB BID, #60 TAB 10/16/18 [Nephro-Roque] No Conflict Check, 0.8 MG GTB DAILY 10/16/18 Polyethylene Glycol* (Miralax*) 17 Gm Powd.pack, 17 GM GTB Q24H, #30 PACKET 10/16/18 Metoprolol Tartrate* (Lopressor*) 50 Mg Tab, 50 MG GTB DAILY, #60 TAB Q MON,WED,FRI,SUN,HOLD FOR SBP<110 OR MI<60 10/16/18 Metoprolol Tartrate* (Lopressor*) 50 Mg Tab, 50 MG GTB BID, #60 TAB QTUE,ANDREW,SAT,HOLD FOR SBP<110 OR MI<60 10/16/18 Linaclotide (LINZESS) 145 Mcg Capsule, 145 MCG GTB DAILY, #30 CAP 10/16/18 Ipratropium-Albuterol (Ipratropium-Albuterol) 0.5-3 Mg/3 Ml Ampul.neb, 3 ML INHALATION Q6, #30 VIAL FOR 14 DAYS,STOP DATE 10/17/18 10/16/18 Hydralazine Hcl* (Hydralazine Hcl*) 25 Mg Tab, 25 MG GTB DAILY, #60 TAB Q TUE,ANDREW,SAT,HOLD IF SBP<110 OR MI<60 10/16/18 Folic Acid* (Folic Acid*) 1 Mg Tablet, 1 MG GTB DAILY, TAB 10/16/18 Docusate Sodium* (Colace*) 100 Mg Capsule, 100 MG GTB DAILY, #30 CAP 10/16/18 Lorazepam* (Lorazepam*) 1 Mg Tablet, 1 MG GTB HS PRN for ANXIETY, #30 TAB Q TUE,ANDREW,SAT 10/16/18 Amlodipine Besylate* (Norvasc*) 5 Mg Tablet, 5 MG GTB BID, TAB TAKE Q TUE,ANDREW,SAT FOR HTN, HOLD FOR SBP<110 OR MI<60 10/16/18 Acetaminophen* (Acetaminophen*) 650 Mg Tablet, 650 MG GTB Q6H PRN for PAIN LEVEL 1-10/10, #30 TAB 10/16/18 Medications Current Medications IV Flush (NS 3 ml) 3 ml PER PROTOCOL IV ; Start 11/16/18 at 09:00 Ondansetron HCl (Zofran Inj) 4 mg Q6H PRN IV NAUSEA AND/OR VOMITING; Start 11/16 at 09:00 Acetaminophen (Tylenol Tab) 650 mg Q6H PRN PO PAIN LEVEL 1-3 OR FEVER Last administered on 12/10/18at 03:05; Admin Dose 650 MG; Start 11/16/18 at 09:00 Docusate Sodium (Colace) 100 mg Q12H PRN PO CONSTIPATION; Start 11/16/18 at 09:00 Magnesium Hydroxide (Milk Of Mag) 30 ml DAILY PRN PO CONSTIPATION; Start 11/16/18 at 09:00 Folic Acid (Folic Acid) 1 mg DAILY GTB Last administered on 12/10/18 08:34; Admin Dose 1 MG; Start 11/16/18 at 09:00 Albuterol/ Ipratropium (Duoneb) 3 ml Q6 PRN HHN sob; Start 11/16/18 at 09:00 Linagliptin (Tradjenta) 5 mg DAILY GTB Last administered on 12/10/18 08:43; Admin Dose 5 MG; Start 11/16/18 at 09:00 Lorazepam (Ativan) 1 mg HS PRN GTB ANXIETY Last administered on 12/10/18 03:05; Admin Dose 1 MG; Start 11/16/18 at 09:00 Quetiapine Fumarate (Seroquel) 25 mg BID GTB Last administered on 12/10/18 08:34; Admin Dose 25 MG; Start 11/16/18 at 09:00 Senna (Senokot) 1 tab BID PO Last administered on 12/09/18 21:15; Admin Dose 1 TAB; Start 11/16/18 at 09:00 Valproate Sodium (Depakene Liquid Cup) 250 mg Q8 PO Last administered on 12/10/18 05:46; Admin Dose 250 MG; Start 11/16/18 at 14:00 Sodium Chloride (NS) -To prime the dialy... DIRECTED FOR HD PRN IV SBP<90; Start 11/16/18 at 15:00 Hydralazine HCl (Apresoline) 10 mg Q4H PRN IV ELEVATED BLOOD PRESSURE Last administered on 12/04/18 21:06; Admin Dose 10 MG; Start 11/17/18 at 10:30 Acetaminophen/ Hydrocodone Bitart ([place] (5/325)) 1 tab Q3H PRN PO MODERATE PAIN LEVEL 4-6 Last administered on 12/06/18 15:38; Admin Dose 1 TAB; Start 11/17/18 at 14:30 Metoprolol Tartrate (Lopressor) 50 mg BID GTB Last administered on 12/09/18 08:32; Admin Dose 50 MG; Start 11/18/18 at 09:00 Albumin Human 50 ml @ 100 mls/hr WITH DIALYSIS PRN IV SBP<90 Last administered on 11/22/18at 11:25; Admin Dose 100 MLS/HR; Start 11/18/18 at 14:30 Morphine Sulfate (morphine) 6 mg Q4H PRN PO SEVERE PAIN LEVEL 7-10 Last administered on 11/27/18 00:35; Admin Dose 6 MG; Start 11/18/18 at 23:00 Docusate Sodium (Colace Liquid Cup) 100 mg DAILY GTB Last administered on 12/09/18 08:33; Admin Dose 100 MG; Start 11/19/18 at 09:30 Guaifenesin/ Dextromethorphan (Robitussin Dm Liquid Cup) 5 ml Q4H PRN PO cough Last administered on 12/07/18 23:55; Admin Dose 5 ML; Start 11/20/18 at 14:00 Multivit/Ca Carb/ B Cmplx/FA/Prenat (Kianna-Roque) 1 tab DAILY GTB Last administered on 12/10/18 08:34; Admin Dose 1 TAB; Start 11/24/18 at 09:00 Lansoprazole (Prevacid) 30 mg DAILY GTB Last administered on 12/10/18 08:34; Admin Dose 30 MG; Start 11/26/18 at 09:00 Acetaminophen (Tylenol Supp) 650 mg Q4H PRN [place] MILD PAIN(1-3) OR TEMP>38C Last administered on 11/26/18 08:32; Admin Dose 650 MG; Start 11/26/18 at 08:30 Amlodipine Besylate (Norvasc) 5 mg BID GTB Last administered on 12/09/18 08:33; Admin Dose 5 MG; Start 12/04/18 at 21:00 Ferrous Sulfate (Feosol Liquid Cup) 300 mg BID GTB Last administered on 12/10/18 08:34; Admin Dose 300 MG; Start 12/05/18 at 09:30 Epoetin Michael (Epogen (Esrd)) 4,000 units MoWeFr@17 SC Last administered on 12/08/18 17:12; Admin Dose 4,000 UNITS; Start 12/06/18 at 17:00 Voriconazole (Vfend) 200 mg BID PO Last administered on 12/10/18 08:34; Admin Dose 200 MG; Start 12/06/18 at 21:00 Hydralazine HCl (Apresoline) 50 mg Q8 PO Last administered on 1/31/19at 05:51; Admin Dose 50 MG; Start 12/07/18 at 22:00 Heparin Sodium (Porcine) (Heparin (1000 Units/ml)) 4,000 unit AFTER DIALYSIS CATHETER ; Start 12/07/18 at 17:30 Sodium Chloride (NS) -To prime the dialy... DIRECTED FOR HD PRN IV HD; Start 12/07/18 at 17:30 Assessment/Plan Hospital Course (Demo Recall) fungemia Right hand hematoma: Status post IND now Renal failure on dialysis Hypertension Dementia Anemia Possible GI bleed: Status post EGD AI Recommendations: transfusion with HD prn Dialysis as per renal team Neuro workup and treatment as per internal medicine Antibiotic as per ID and internal medicine Thank you for his referral. We will continue to follow along with you as needed basis CHRISTEN ESCOBEDO MD [facility] CHRISTEN ESCOBEDO MD Dec 10, 2018 09:11
--- NOTE | 2018-12-10 10:07 | CONS ---
Assessment/Plan Assessment/Plan Hospital Course (Demo Recall) 1. End-stage renal disease on hemodialysis. 2. Gastrointestinal bleed with melena. 3. Hypertension. 4. Diabetes. 5. Right hand swelling, s/p I and D on 11/17/18 6. History of falls. 7. Vascular dementia. 8. History of sepsis with VRE. 9. Dysphagia, status post G-tube. 10. History of hip fracture. 11. Thrombocytopenia. 12. Atherosclerotic heart disease. 13. Pneumonia left side 14. Anemia Assessment/Plan (Daily) -c/w epogen -c/w HD -avoid nephrotoxic drugs Consultation Date/Type/Reason Admit Date/Time Nov 16, 2018 at 05:51 Initial Consult Date 11/16/18 Type of Consult nephrology Requesting Provider: DYLON WALLS MD Date/Time of Note DATE: 12/10/18 TIME: 10:07 24 HR Interval Summary Constitutional: disoriented Exam/Review of Systems Exam Vitals Vital Signs Date Temp Pulse Resp B/P (MAP) Pulse Ox O2 O2 Flow FiO2 Time Delivery Rate 12/10/18 98.2 90 18 121/51 96 Room Air 07:43 (74) 12/06/18 2.0 16:39 Intake and Output 12/09/18 12/09/18 12/10/18 1414:59 22:59 06:59 IntakeIntake Total 340 ml BalanceBalance 340 ml Exam lethargic, left chest Permcath Neck: supple Respiratory: clear to auscultation Cardiovascular: regular rate and rhythm Musculoskeletal: muscle weakness, other (right hand wound) Results Result Diagram: 12/10/1851112/10/18511 Results 24hrs Laboratory Tests Test 12/10/18 05:12 White Blood Count 9.6 Red Blood Count 3.15 L Hemoglobin 8.4 L Hematocrit 26.8 L Mean Corpuscular Volume 85.1 Mean Corpuscular Hemoglobin 26.7 L Mean Corpuscular Hemoglobin Concent 31.3 L Red Cell Distribution Width 16.8 H Platelet Count 271 Mean Platelet Volume 12.5 H Immature Granulocytes % 1.500 H Neutrophils % 71.8 Lymphocytes % 13.3 L Monocytes % 8.8 Eosinophils % 4.1 Basophils % 0.5 Nucleated Red Blood Cells % 0.9 H Immature Granulocytes # 0.140 H Neutrophils # 6.9 Lymphocytes # 1.3 Monocytes # 0.9 Eosinophils # 0.4 Basophils # 0.1 Nucleated Red Blood Cells # 0.1 H Sodium Level 138 Potassium Level 4.1 Chloride Level 102 Carbon Dioxide Level 31 Anion Gap 5 Blood Urea Nitrogen 72 #H Creatinine 2.17 H Est Glomerular Filtrat Rate mL/min Glucose Level 99 Calcium Level 8.5 Phosphorus Level 3.5 Magnesium Level 2.3 Medications Medication Current Medications IV Flush (NS 3 ml) 3 ml PER PROTOCOL IV ; Start 11/16/18 at 09:00 Ondansetron HCl (Zofran Inj) 4 mg Q6H PRN IV NAUSEA AND/OR VOMITING; Start 11/16/18 at 09:00 Acetaminophen (Tylenol Tab) 650 mg Q6H PRN PO PAIN LEVEL 1-3 OR FEVER Last administered on 12/10/18 03:05; Admin Dose 650 MG; Start 11/16/18 at 09:00 Docusate Sodium (Colace) 100 mg Q12H PRN PO CONSTIPATION; Start 11/16/18 at 09:00 Magnesium Hydroxide (Milk Of Mag) 30 ml DAILY PRN PO CONSTIPATION; Start 9 at 09:00 Folic Acid (Folic Acid) 1 mg DAILY GTB Last administered on 12/10/18 08:34; Admin Dose 1 MG; Start 11/16/18 at 09:00 Albuterol/ Ipratropium (Duoneb) 3 ml Q6 PRN HHN sob; Start 11/16/18 at 09:00 Linagliptin (Tradjenta) 5 mg DAILY GTB Last administered on 12/10/18 08:43; Admin Dose 5 MG; Start 11/16/18 at 09:00 Lorazepam (Ativan) 1 mg HS PRN GTB ANXIETY Last administered on 12/10/18 03:05; Admin Dose 1 MG; Start 11/16/18 at 09:00 Quetiapine Fumarate (Seroquel) 25 mg BID GTB Last administered on 12/10/18 08:34; Admin Dose 25 MG; Start 11/16/18 at 09:00 Senna (Senokot) 1 tab BID PO Last administered on 12/09/18 21:15; Admin Dose 1 TAB; Start 11/16/18 at 09:00 Valproate Sodium (Depakene Liquid Cup) 250 mg Q8 PO Last administered on 12/10/18 05:46; Admin Dose 250 MG; Start 11/16/18 at 14:00 Sodium Chloride (NS) -To prime the dialy... DIRECTED FOR HD PRN IV SBP<90; Start 11/16/18 at 15:00 Hydralazine HCl (Apresoline) 10 mg Q4H PRN IV ELEVATED BLOOD PRESSURE Last administered on 12/04/18 21:06; Admin Dose 10 MG; Start 11/17/18 at 10:30 Acetaminophen/ Hydrocodone Bitart ([employer] (5/325)) 1 tab Q3H PRN PO MODERATE PAIN LEVEL 4-6 Last administered on 12/06/18 15:38; Admin Dose 1 TAB; Start 11/17/18 at 14:30 Metoprolol Tartrate (Lopressor) 50 mg BID GTB Last administered on 12/09/18 08:32; Admin Dose 50 MG; Start 11/18/18 at 09:00 Albumin Human 50 ml @ 100 mls/hr WITH DIALYSIS PRN IV SBP<90 Last administered on 11/22/18 11:25; Admin Dose 100 MLS/HR; Start 11/18/18 at 14:30 Morphine Sulfate (morphine) 6 mg Q4H PRN PO SEVERE PAIN LEVEL 7-10 Last administered on 11/27/18 00:35; Admin Dose 6 MG; Start 11/18/18 at 23:00 Docusate Sodium (Colace Liquid Cup) 100 mg DAILY GTB Last administered on 12/09/18 08:33; Admin Dose 100 MG; Start 11/19/18 at 09:30 Guaifenesin/ Dextromethorphan (Robitussin Dm Liquid Cup) 5 ml Q4H PRN PO cough Last administered on 12/07/18 23:55; Admin Dose 5 ML; Start 11/20/18 at 14:00 Multivit/Ca Carb/ B Cmplx/FA/Prenat (Kianna-Roque) 1 tab DAILY GTB Last administered on 12/10/18 08:34; Admin Dose 1 TAB; Start 11/24/18 at 09:00 Lansoprazole (Prevacid) 30 mg DAILY GTB Last administered on 12/10/18 08:34; Admin Dose 30 MG; Start 11/26/18 at 09:00 Acetaminophen (Tylenol Supp) 650 mg Q4H PRN [place] MILD PAIN(1-3) OR TEMP>38C Last administered on 11/26/18 08:32; Admin Dose 650 MG; Start 11/26/18 at 08:30 Amlodipine Besylate (Norvasc) 5 mg BID GTB Last administered on 12/09/18 08:33; Admin Dose 5 MG; Start 12/04/18 at 21:00 Ferrous Sulfate (Feosol Liquid Cup) 300 mg BID GTB Last administered on 12/10/18 08:34; Admin Dose 300 MG; Start 12/05/18 at 09:30 Epoetin Michael (Epogen (Esrd)) 4,000 units MoWeFr@17 SC Last administered on 11/11 17:12; Admin Dose 4,000 UNITS; Start 12/06/18 at 17:00 Voriconazole (Vfend) 200 mg BID PO Last administered on 12/10/18 08:34; Admin Dose 200 MG; Start 12/06/18 at 21:00 Hydralazine HCl (Apresoline) 50 mg Q8 PO Last administered on 12/09/18at 05:51; Admin Dose 50 MG; Start 12/07/18 at 22:00 Heparin Sodium (Porcine) (Heparin (1000 Units/ml)) 4,000 unit AFTER DIALYSIS CATHETER ; Start 12/07/18 at 17:30 Sodium Chloride (NS) -To prime the dialy... DIRECTED FOR HD PRN IV HD; Start 12/07/18 at 17:30 FLAVIO CLAYTON Dec 10, 2018 10:07
--- NOTE | 2018-12-10 15:04 | PN ---
DATE: 12/10/2018 SUBJECTIVE: The patient is currently being dialyzed, appears to be comfortable. Hemoglobin is more stable at 8.4. OBJECTIVE: VITAL SIGNS: Temperature 98.2, pulse 81, respiration 19, blood pressure 118/44, saturation 97% room air. GENERAL: In no acute distress. The patient is pale, resting comfortably. CARDIOVASCULAR: S1, S2, regular rate. SKIN: Left IJ in place. G-tube in place. EXTREMITIES: No clubbing, cyanosis or edema. LABORATORY DATA: White count is 9.6, hemoglobin 8.4, hematocrit 27, platelet count of 271. Chemistr y: Sodium is 138, potassium 4.1, chloride 102, bicarbonate 31, BUN 72, creatinine 2.17, glucose of 9 9. Again, the patient is being dialyzed today. MEDICATIONS: All reviewed. They include Vfend. She is taking it for fungemia, UTI Dominique glabrata . All other meds were reviewed as well. ASSESSMENT AND PLAN: This is an 83-year-old [place]ian female with end-stage renal disease, dementia, chronic kidney disease, chronic obstructive pulmonary disease, who presented with right hand hematoma status post evacuation, also treated for pneumonia, fungemia and urinary tract infection. 1. Respiratory, clinically stable, status post treatment for pneumonia. Continue O2 support. 2. Cardiovascular. Vitals remain stable. 3. Infectious disease. Finishing the course of Vfend for all of the above fungal infection includin g fungemia and urinary tract infection. Last day of antibiotics is 12/16/2018. 4. End-stage renal disease. Dialysis today and she is being dialyzed Thursday, Thursday, Thursday. 5. Anemia. Epogen and transfusion p.r.n. 6. Dysphagia. Continue G-tube feeding diet. Dietary is adjusting. The patient is feeding via bolu s feedings. 7. Case was discussed with lead case manager regarding transfer facility able to provide the above antifungal. 8. Diabetes mellitus, well controlled with glucose level in the 100s. Continue to monitor closely. Continue Tradjenta. 9. Remain on 1:1 due to high risk of fall and danger to self. We will continue to follow closely. Dictated By: DYLON HULL/MADAN Conf#: [id number] DID#: [id number] CC: CHRISS WELCH MD;*End*
--- NOTE | 2018-12-10 15:39 | CONS ---
Assessment/Plan Assessment/Plan Hospital Course (Demo Recall) No events, looks comfortable, no fevers Microbiology: Blood culture repeated on November 29 grew Dominique glabrata blood cultures since December 01 that were drawn from permacath negative blood culture on December 03 negative, urine culture growing C glabrata Antimicrobials: Vfend Indwelling: Left chest permacath, PEG Physical examination: Chronically ill-appearing elderly woman who is awake, confused, in no distress. Head atraumatic normocephalic. Neck is supple. Chest rise symmetrical breath sounds diminished bases. Heart: S1-S2. Abdomen soft bowel sounds present, right upper extremity Armani wrapped Assessment: 1. Fungemia secondary to urinary tract infection 2. S/p pneumonia, possibly aspiration 3. Right hand hematoma, status post I&D 11/17/18 4. Status post VRE bacteremia/new Pcath 5. End-stage renal disease, hemodialysis dependent 6. Dementia 7. Failure to thrive 8. Diabetes 9. Anemia 10. S/p sepsis Plan: Remains stable, continue on Vfend==> last dose on December 16. Consultation Date/Type/Reason Admit Date/Time Nov 16, 2018 at 05:51 Initial Consult Date 11/16/18 Type of Consult id Requesting Provider: DYLON WALLS MD Date/Time of Note DATE: 12/10/18 TIME: 15:39 Exam/Review of Systems Exam Vitals Vital Signs Date Temp Pulse Resp B/P (MAP) Pulse Ox O2 O2 Flow FiO2 Time Delivery Rate 12/10/18 119 17 118/64 97 Room Air 15:35 (82) 12/10/18 98.2 07:43 12/06/18 2.0 16:39 Intake and Output 12/09/18 12/09/18 12/10/18 1515:00 23:00 07:00 IntakeIntake Total 340 ml BalanceBalance 340 ml Results Result Diagram: 12/10/1851112/10/18511 Results 24hrs Laboratory Tests Test 12/10/18 05:12 White Blood Count 9.6 Red Blood Count 3.15 L Hemoglobin 8.4 L Hematocrit 26.8 L Mean Corpuscular Volume 85.1 Mean Corpuscular Hemoglobin 26.7 L Mean Corpuscular Hemoglobin Concent 31.3 L Red Cell Distribution Width 16.8 H Platelet Count 271 Mean Platelet Volume 12.5 H Immature Granulocytes % 1.500 H Neutrophils % 71.8 Lymphocytes % 13.3 L Monocytes % 8.8 Eosinophils % 4.1 Basophils % 0.5 Nucleated Red Blood Cells % 0.9 H Immature Granulocytes # 0.140 H Neutrophils # 6.9 Lymphocytes # 1.3 Monocytes # 0.9 Eosinophils # 0.4 Basophils # 0.1 Nucleated Red Blood Cells # 0.1 H Sodium Level 138 Potassium Level 4.1 Chloride Level 102 Carbon Dioxide Level 31 Anion Gap 5 Blood Urea Nitrogen 72 #H Creatinine 2.17 H Est Glomerular Filtrat Rate mL/min Glucose Level 99 Calcium Level 8.5 Phosphorus Level 3.5 Magnesium Level 2.3 Medications Medication Current Medications IV Flush (NS 3 ml) 3 ml PER PROTOCOL IV ; Start 11/16/18 at 09:00 Ondansetron HCl (Zofran Inj) 4 mg Q6H PRN IV NAUSEA AND/OR VOMITING; Start 11/16/18 at 09:00 Acetaminophen (Tylenol Tab) 650 mg Q6H PRN PO PAIN LEVEL 1-3 OR FEVER Last administered on 12/10/18 03:05; Admin Dose 650 MG; Start 11/16/18 at 09:00 Docusate Sodium (Colace) 100 mg Q12H PRN PO CONSTIPATION; Start 11/16/18 at 09:00 Magnesium Hydroxide (Milk Of Mag) 30 ml DAILY PRN PO CONSTIPATION; Start 11/16/18 at 09:00 Folic Acid (Folic Acid) 1 mg DAILY GTB Last administered on 12/10/18at 08:34; Admin Dose 1 MG; Start 11/16/18 at 09:00 Albuterol/ Ipratropium (Duoneb) 3 ml Q6 PRN HHN sob; Start 11/16/18 at 09:00 Linagliptin (Tradjenta) 5 mg DAILY GTB Last administered on 12/10/18 08:43; Admin Dose 5 MG; Start 11/16/18 at 09:00 Lorazepam (Ativan) 1 mg HS PRN GTB ANXIETY Last administered on 12/10/18 03:05; Admin Dose 1 MG; Start 11/16/18 at 09:00 Quetiapine Fumarate (Seroquel) 25 mg BID GTB Last administered on 12/10/18 08:34; Admin Dose 25 MG; Start 11/16/18 at 09:00 Senna (Senokot) 1 tab BID PO Last administered on 12/09/18 21:15; Admin Dose 1 TAB; Start 11/16/18 at 09:00 Valproate Sodium (Depakene Liquid Cup) 250 mg Q8 PO Last administered on 14:51; Admin Dose 250 MG; Start 11/16/18 at 14:00 Sodium Chloride (NS) -To prime the dialy... DIRECTED FOR HD PRN IV SBP<90; Start 11/16/18 at 15:00 Hydralazine HCl (Apresoline) 10 mg Q4H PRN IV ELEVATED BLOOD PRESSURE Last administered on 12/04/18 21:06; Admin Dose 10 MG; Start 11/17/18 at 10:30 Acetaminophen/ Hydrocodone Bitart ([place] (5/325)) 1 tab Q3H PRN PO MODERATE PAIN LEVEL 4-6 Last administered on 12/06/18 15:38; Admin Dose 1 TAB; Start 11/17/18 at 14:30 Metoprolol Tartrate (Lopressor) 50 mg BID GTB Last administered on 12/09/18 08:32; Admin Dose 50 MG; Start 11/18/18 at 09:00 Albumin Human 50 ml @ 100 mls/hr WITH DIALYSIS PRN IV SBP<90 Last administered on 11/22/18 11:25; Admin Dose 100 MLS/HR; Start 11/18/18 at 14:30 Morphine Sulfate (morphine) 6 mg Q4H PRN PO SEVERE PAIN LEVEL 7-10 Last administered on 11/27/18 00:35; Admin Dose 6 MG; Start 11/18/18 at 23:00 Docusate Sodium (Colace Liquid Cup) 100 mg DAILY GTB Last administered on 12/09/18 08:33; Admin Dose 100 MG; Start 11/19/18 at 09:30 Guaifenesin/ Dextromethorphan (Robitussin Dm Liquid Cup) 5 ml Q4H PRN PO cough Last administered on 12/07/18 23:55; Admin Dose 5 ML; Start 11/20/18 at 14:00 Multivit/Ca Carb/ B Cmplx/FA/Prenat (Kianna-Roque) 1 tab DAILY GTB Last administered on 12/10/18 08:34; Admin Dose 1 TAB; Start 11/24/18 at 09:00 Lansoprazole (Prevacid) 30 mg DAILY GTB Last administered on 12/10/18 08:34; Admin Dose 30 MG; Start 11/26/18 at 09:00 Acetaminophen (Tylenol Supp) 650 mg Q4H PRN [place] MILD PAIN(1-3) OR TEMP>38C Last administered on 11/26/18 08:32; Admin Dose 650 MG; Start 11/26/18 at 08:30 Amlodipine Besylate (Norvasc) 5 mg BID GTB Last administered on 12/09/18 08:33; Admin Dose 5 MG; Start 12/04/18 at 21:00 Ferrous Sulfate (Feosol Liquid Cup) 300 mg BID GTB Last administered on 12/10/18 08:34; Admin Dose 300 MG; Start 12/05/18 at 09:30 Epoetin Michael (Epogen (Esrd)) 4,000 units MoWeFr@17 SC Last administered on 12/08/18 17:12; Admin Dose 4,000 UNITS; Start 12/06/18 at 17:00 Voriconazole (Vfend) 200 mg BID PO Last administered on 12/10/18 08:34; Admin Dose 200 MG; Start 12/06/18 at 21:00 Hydralazine HCl (Apresoline) 50 mg Q8 PO Last administered on 12/09/18at 05:51; Admin Dose 50 MG; Start 12/07/18 at 22:00 Sodium Chloride (NS) -To prime the dialy... DIRECTED FOR HD PRN IV HD; Start 12/07/18 at 17:30 PHYLICIA HOLCOMB NP Dec 10, 2018 15:39
[2018-12-10] MEDS: EPOETIN 4000 UNITS/1 ML INJ (ESRD) SC SCH (16:35)
[2018-12-11 02:04] VITALS: BP 155/65; PULSE 84; RESP 18
[2018-12-11] MEDS: VALPROIC ACID LIQUID CUP 250 MG/5 ML CUP PO SCH ×3 (05:46→22:37)
[2018-12-11 07:55] VITALS: BP 121/51; PULSE 81; RESP 16
[2018-12-11] MEDS: FERROUS SULFATE 60 MG/ML 5ML CUP GTB SCH ×2 (08:21→20:16)
[2018-12-11] MEDS: LANSOPRAZOLE 30 MG CAP GTB SCH (08:22)
[2018-12-11] MEDS: AMLODIPINE 5 MG TAB GTB SCH ×2 (08:22→20:16)
[2018-12-11] MEDS: FOLIC ACID 1 MG TAB GTB SCH (08:22)
[2018-12-11] MEDS: METOPROLOL 50 MG TAB GTB SCH ×2 (08:22→20:17)
[2018-12-11] MEDS: VORICONAZOLE 200 MG TAB PO SCH ×2 (08:22→20:17)
[2018-12-11] MEDS: LINAGLIPTIN 5 MG TABLET GTB SCH (08:22)
[2018-12-11] MEDS: MULTIVIT/CA CARB/B CMPLX/FA TAB GTB SCH (08:22)
[2018-12-11] MEDS: SENNA TAB PO SCH ×2 (08:22→20:17)
[2018-12-11] MEDS: QUETIAPINE 25 MG TAB GTB SCH ×2 (08:22→20:16)
[2018-12-11] MEDS: DOCUSATE SODIUM 10 MG/ML (10ML CUP) GTB SCH (08:23)
--- NOTE | 2018-12-11 10:18 | CONS ---
Assessment/Plan Assessment/Plan Hospital Course (Demo Recall) 1. End-stage renal disease on hemodialysis. 2. Gastrointestinal bleed with melena. 3. Hypertension. 4. Diabetes. 5. Right hand swelling, s/p I and D on 11/17/18 6. History of falls. 7. Vascular dementia. 8. History of sepsis with VRE. 9. Dysphagia, status post G-tube. 10. History of hip fracture. 11. Thrombocytopenia. 12. Atherosclerotic heart disease. 13. Pneumonia left side 14. Anemia Assessment/Plan (Daily) -c/w HD -c/w Epogen -avoid nephrotoxic drugs Consultation Date/Type/Reason Admit Date/Time Nov 16, 2018 at 05:51 Initial Consult Date 11/16/18 Type of Consult nephrology Requesting Provider: DYLON WALLS MD Date/Time of Note DATE: 12/11/18 TIME: 10:17 24 HR Interval Summary Constitutional: disoriented Exam/Review of Systems Exam Vitals Vital Signs Date Temp Pulse Resp B/P (MAP) Pulse Ox O2 O2 Flow FiO2 Time Delivery Rate 12/11/18 98.7 81 16 121/51 94 Room Air 07:55 (74) Intake and Output 12/10/18 12/10/18 12/11/18 1515:00 23:00 07:00 OutputOutput Total 0 ml 1100 ml BalanceBalance 0 ml -1100 ml Exam left chest Permcath Constitutional: frail Head: normocephalic Neck: supple Respiratory: diminished breath sounds Cardiovascular: regular rate and rhythm Gastrointestinal: soft, other (GT) Results Result Diagram: 12/10/1851112/10/18511 Medications Medication Current Medications IV Flush (NS 3 ml) 3 ml PER PROTOCOL IV ; Start 11/16/18 at 09:00 Ondansetron HCl (Zofran Inj) 4 mg Q6H PRN IV NAUSEA AND/OR VOMITING; Start 11/16/18 at 09:00 Acetaminophen (Tylenol Tab) 650 mg Q6H PRN PO PAIN LEVEL 1-3 OR FEVER Last administered on 12/10/18at 03:05; Admin Dose 650 MG; Start 11/16/18 at 09:00 Docusate Sodium (Colace) 100 mg Q12H PRN PO CONSTIPATION; Start 11/16/18 at 09:0 0 Magnesium Hydroxide (Milk Of Mag) 30 ml DAILY PRN PO CONSTIPATION; Start 11/16/18 at 09:00 Folic Acid (Folic Acid) 1 mg DAILY GTB Last administered on 12/11/18 08:22; Admin Dose 1 MG; Start 11/16/18 at 09:00 Albuterol/ Ipratropium (Duoneb) 3 ml Q6 PRN HHN sob; Start 11/16/18 at 09:00 Linagliptin (Tradjenta) 5 mg DAILY GTB Last administered on 12/11/18 08:22; Admin Dose 5 MG; Start 11/16/18 at 09:00 Lorazepam (Ativan) 1 mg HS PRN GTB ANXIETY Last administered on 12/10/18 03:05; Admin Dose 1 MG; Start 11/16/18 at 09:00 Quetiapine Fumarate (Seroquel) 25 mg BID GTB Last administered on 12/11/18 08:22; Admin Dose 25 MG; Start 11/16/18 at 09:00 Senna (Senokot) 1 tab BID PO Last administered on 12/11/18 08:22; Admin Dose 1 TAB; Start 11/16/18 at 09:00 Valproate Sodium (Depakene Liquid Cup) 250 mg Q8 PO Last administered on 12/11/18 05:46; Admin Dose 250 MG; Start 11/16/18 at 14:00 Sodium Chloride (NS) -To prime the dialy... DIRECTED FOR HD PRN IV SBP<90; Start 11/16/18 at 15:00 Hydralazine HCl (Apresoline) 10 mg Q4H PRN IV ELEVATED BLOOD PRESSURE Last administered on 12/04/18 21:06; Admin Dose 10 MG; Start 11/17/18 at 10:30 Acetaminophen/ Hydrocodone Bitart ([place] (5/325)) 1 tab Q3H PRN PO MODERATE PAIN LEVEL 4-6 Last administered on 12/06/18 15:38; Admin Dose 1 TAB; Start 11/17/18 at 14:30 Metoprolol Tartrate (Lopressor) 50 mg BID GTB Last administered on 12/11/18 08:22; Admin Dose 50 MG; Start 11/18/18 at 09:00 Albumin Human 50 ml @ 100 mls/hr WITH DIALYSIS PRN IV SBP<90 Last administered on 11/22/18 11:25; Admin Dose 100 MLS/HR; Start 11/18/18 at 14:30 Morphine Sulfate (morphine) 6 mg Q4H PRN PO SEVERE PAIN LEVEL 7-10 Last administered on 11/27/18 00:35; Admin Dose 6 MG; Start 11/18/18 at 23:00 Docusate Sodium (Colace Liquid Cup) 100 mg DAILY GTB Last administered on 12/09/18 08:33; Admin Dose 100 MG; Start 11/19/18 at 09:30 Guaifenesin/ Dextromethorphan (Robitussin Dm Liquid Cup) 5 ml Q4H PRN PO cough Last administered on 12/07/18 23:55; Admin Dose 5 ML; Start 11/20/18 at 14:00 Multivit/Ca Carb/ B Cmplx/FA/Prenat (Kianna-Roque) 1 tab DAILY GTB Last admi nistered on 12/11/18 08:22; Admin Dose 1 TAB; Start 11/24/18 at 09:00 Lansoprazole (Prevacid) 30 mg DAILY GTB Last administered on 12/11/18 08:22; Admin Dose 30 MG; Start 11/26/18 at 09:00 Acetaminophen (Tylenol Supp) 650 mg Q4H PRN [place] MILD PAIN(1-3) OR TEMP>38C Last administered on 11/26/18 08:32; Admin Dose 650 MG; Start 11/26/18 at 08:30 Amlodipine Besylate (Norvasc) 5 mg BID GTB Last administered on 12/11/18 08:22; Admin Dose 5 MG; Start 12/04/18 at 21:00 Ferrous Sulfate (Feosol Liquid Cup) 300 mg BID GTB Last administered on 12/11/18 08:21; Admin Dose 300 MG; Start 12/05/18 at 09:30 Epoetin Michael (Epogen (Esrd)) 4,000 units MoWeFr@17 SC Last administered on 12/10/18 16:35; Admin Dose 4,000 UNITS; Start 12/06/18 at 17:00 Voriconazole (Vfend) 200 mg BID PO Last administered on 12/11/18 08:22; Admin Dose 200 MG; Start 12/06/18 at 21:00 Hydralazine HCl (Apresoline) 50 mg Q8 PO Last administered on 12/11/18at 05:47; Admin Dose 50 MG; Start 12/07/18 at 22:00 Sodium Chloride (NS) -To prime the dialy... DIRECTED FOR HD PRN IV HD; Start 12/07/18 at 17:30 FLAVIO CLAYTON Dec 11, 2018 10:18
--- NOTE | 2018-12-11 14:37 | CONS ---
Assessment/Plan Assessment/Plan Hospital Course (Demo Recall) ID PROGRESS NOTE CURRENT ABX: DAY #=> VFEND s/p Merrem # + Cancidas 12/10/1812 12/10/18511 24H INTERVAL SUMMARY * Patient resting with VSS, no fevers, NAD, without dyspnea MICRO * 12/06/18 URINE Cx (+) Glabrata * 12/03/18 BCx (-) * 12/01/18 BCx (-) * 11/29/18 BCx (+) Glabrata * 11/24/18 BCX (+) Glabrata = fungemia PHYSICAL EXAMINATION: GENERAL: Afebrile, VSS, HEENT: AT, NC, anicteric NECK: Supple, trach CHEST: Equal chest rise bilaterally, without dyspnea on observation HEART: Pulse RRR ABDOMEN: Soft / NT EXTREMITIES: Warm, dry SKIN: No rash, no diaphoresis ID ASSESSMENT 83 yo F w/ DEMENTIA admit with: 1. FUNGEMIA == secondary to GLABRATA UTI 2. Status post VRE bacteremia, status post new Pcath 3. End-stage renal disease, hemodialysis dependent 4. Health care Acquired PNA -- ?ASP PNA? 5. Right hand hematoma, status post I&D 11/17/18 6. Diabetes 7. Anemia 8. Failure to thrive (-)MRSA Nares ABX ALLERGIES: KNDA INVASIVES: PIV CURRENT ABX: DAY #=> VFEND s/p Merrem # + Cancidas ID RECOMMENDATIONS/PLAN: Continue on Vfend==> last dose on December 16. . Consultation Date/Type/Reason Admit Date/Time Nov 16, 2018 at 05:51 Initial Consult Date 11/16/18 Requesting Provider: DYLON WALLS MD Date/Time of Note DATE: 12/11/18 TIME: 14:37 Exam/Review of Systems Exam Vitals Vital Signs Date Temp Pulse Resp B/P (MAP) Pulse Ox O2 O2 Flow FiO2 Time Delivery Rate 12/11/18 98.7 81 16 121/51 94 Room Air 07:55 (74) Intake and Output 12/10/18 12/10/18 12/11/18 1414:59 22:59 06:59 OutputOutput Total 0 ml 1100 ml BalanceBalance 0 ml -1100 ml Results Result Diagram: 12/10/1851112/10/18511 Medications Medication Current Medications IV Flush (NS 3 ml) 3 ml PER PROTOCOL IV ; Start 11/16/18 at 09:00 Ondansetron HCl (Zofran Inj) 4 mg Q6H PRN IV NAUSEA AND/OR VOMITING; Start 11/16/18 at 09:00 Acetaminophen (Tylenol Tab) 650 mg Q6H PRN PO PAIN LEVEL 1-3 OR FEVER Last administered on 12/10/18 03:05; Admin Dose 650 MG; Start 11/16/18 at 09:00 Docusate Sodium (Colace) 100 mg Q12H PRN PO CONSTIPATION; Start 11/16/18 at 09:00 Magnesium Hydroxide (Milk Of Mag) 30 ml DAILY PRN PO CONSTIPATION; Start 11/16/18 at 09:00 Folic Acid (Folic Acid) 1 mg DAILY GTB Last administered on 12/11/18 08:22; Admin Dose 1 MG; Start 11/16/18 at 09:00 Albuterol/ Ipratropium (Duoneb) 3 ml Q6 PRN HHN sob; Start 11/16/18 at 09:00 Linagliptin (Tradjenta) 5 mg DAILY GTB Last administered on 12/11/18 08:22; Admin Dose 5 MG; Start 11/16/18 at 09:00 Lorazepam (Ativan) 1 mg HS PRN GTB ANXIETY Last administered on 12/10/18 03:05; Admin Dose 1 MG; Start 11/16/18 at 09:00 Quetiapine Fumarate (Seroquel) 25 mg BID GTB Last administered on 12/11/18 08:22; Admin Dose 25 MG; Start 11/16/18 at 09:00 Senna (Senokot) 1 tab BID PO Last administered on 12/11/18 08:22; Admin Dose 1 TAB; Start 11/16/18 at 09:00 Valproate Sodium (Depakene Liquid Cup) 250 mg Q8 PO Last administered on 12/11/18 13:17; Admin Dose 250 MG; Start 11/16/18 at 14:00 Sodium Chloride (NS) -To prime the dialy... DIRECTED FOR HD PRN IV SBP<90; Start 11/16/18 at 15:00 Hydralazine HCl (Apresoline) 10 mg Q4H PRN IV ELEVATED BLOOD PRESSURE Last administered on 12/04/18 21:06; Admin Dose 10 MG; Start 11/17/18 at 10:30 Acetaminophen/ Hydrocodone Bitart ([place] (5/325)) 1 tab Q3H PRN PO MODERATE PAIN LEVEL 4-6 Last administered on 12/06/18 15:38; Admin Dose 1 TAB; Start 11/17/18 at 14:30 Metoprolol Tartrate (Lopressor) 50 mg BID GTB Last administered on 12/11/18 08:22; Admin Dose 50 MG; Start 11/18/18 at 09:00 Albumin Human 50 ml @ 100 mls/hr WITH DIALYSIS PRN IV SBP<90 Last administered on 11/22/18 11:25; Admin Dose 100 MLS/HR; Start 11/18/18 at 14:30 Morphine Sulfate (morphine) 6 mg Q4H PRN PO SEVERE PAIN LEVEL 7-10 Last administered on 11/27/18 00:35; Admin Dose 6 MG; Start 11/18/18 at 23:00 Docusate Sodium (Colace Liquid Cup) 100 mg DAILY GTB Last administered on 12/09/18 08:33; Admin Dose 100 MG; Start 11/19/18 at 09:30 Guaifenesin/ Dextromethorphan (Robitussin Dm Liquid Cup) 5 ml Q4H PRN PO cough Last administered on 12/07/18 23:55; Admin Dose 5 ML; Start 11/20/18 at 14:00 Multivit/Ca Carb/ B Cmplx/FA/Prenat (Kianna-Roque) 1 tab DAILY GTB Last administered on 12/11/18 08:22; Admin Dose 1 TAB; Start 11/24/18 at 09:00 Lansoprazole (Prevacid) 30 mg DAILY GTB Last administered on 12/11/18 08:22; Admin Dose 30 MG; Start 11/26/18 at 09:00 Acetaminophen (Tylenol Supp) 650 mg Q4H PRN [place] MILD PAIN(1-3) OR TEMP>38C Last administered on 11/26/18 08:32; Admin Dose 650 MG; Start 11/26/18 at 08:30 Amlodipine Besylate (Norvasc) 5 mg BID GTB Last administered on 12/11/18 08:22; Admin Dose 5 MG; Start 12/04/18 at 21:00 Ferrous Sulfate (Feosol Liquid Cup) 300 mg BID GTB Last administered on 12/11/18 08:21; Admin Dose 300 MG; Start 12/05/18 at 09:30 Epoetin Michael (Epogen (Esrd)) 4,000 units MoWeFr@17 SC Last administered on 12/10 16:35; Admin Dose 4,000 UNITS; Start 12/06/18 at 17:00 Voriconazole (Vfend) 200 mg BID PO Last administered on 12/11/18at 08:22; Admin Dose 200 MG; Start 12/06/18 at 21:00 Hydralazine HCl (Apresoline) 50 mg Q8 PO Last administered on 12/11/18at 13:16; Admin Dose 50 MG; Start 12/07/18 at 22:00 Sodium Chloride (NS) -To prime the dialy... DIRECTED FOR HD PRN IV HD; Start 12/07/18 at 17:30 SEVERO GARCIA NP Dec 11, 2018 14:37
--- NOTE | 2018-12-11 16:44 | PN ---
DATE: 12/11/2018 SUBJECTIVE: This patient was noted to have a small fluid collection in the hand with questionable wh ite-colored fluid. Continue to monitor. In the meantime, warm compressing and care to be provided. PHYSICAL EXAMINATION: VITAL SIGNS: Temperature 98.7, pulse 81, respirations 16, blood pressure 120/51, saturation 94% on r oom air. GENERAL: No acute distress. The patient is normocephalic, atraumatic, pale. CARDIOVASCULAR: S1 and S2, regular rate. LUNGS: Clear. ABDOMEN: Soft. G-tube in place. EXTREMITIES: No clubbing, cyanosis, or edema. LABORATORY DATA: No new labs today. Labs on 12/10/2018 were all reviewed. MEDICATIONS: All meds were reviewed as well. The patient's medications, again, the main ones includ e Vfend which she is taking for fungemia. ASSESSMENT AND PLAN: This is an 83-year-old [place] female with end-stage renal disease, dementia, chronic kidney disease, chronic obstructive pulmonary disease, who presented with right hand hematoma status post evacuation, also treated for pneumonia, fungemia and urinary tract infection. 1. Respiratory: Continue O2 support. Most recent chest x-ray still shows pneumonia but she finishe d her treatment course. ID has been following. 2. Cardiovascular: Remains stable. 3. Infectious disease: Continue Vfend for fungemia and urinary tract infection. 4. End-stage renal disease, dialysis 3 times a week, next dialysis on Thursday. 5. Anemia. Transfuse p.r.n. and Epogen per nephrology. 6. Dysphagia. Continue G-tube feeding rate and bolus feedings per dietary. 7. Continue one-to-one monitoring due to danger to self and risk of fall. 8. Diabetes mellitus. Glucose levels are controlled. Continue Tradjenta. 9. entry specialist followup is appreciated. We will follow. Dictated By: DYLON HULL/MADAN Conf#: [id number] DID#: [id number]
--- NOTE | 2018-12-11 17:52 | CONS ---
Consult Date/Type/Reason Admit Date/Time Nov 16, 2018 at 05:51 Initial Consult Date 11/16/18 Type of Consultation: cv Requesting Provider: DYLON WALLS MD Date/Time of Note DATE: 12/11/18 TIME: 17:52 Subjective Cardiology follow up note Sl DW/ Staff pt is STILL CONFUSED and intermittently agitated no report of any chest pain or pressure or palpitations but pt is a very poor historian s/p I/D 11/17 EGD 11.18.18 O: General: Elderly frail male in no acute distress HEENT: NC/AT. pupils are equal. round. NECK: NO JVD. no stridor. CV: RRR. systolic murmur; no gallop or rubs. PULM: no wheezing or rhonchi. GI: SOFT, NT, ND, no rebound or guarding neuro: awake Psych: confused rectal: deferred CXR 11/22: 1. Left lung interstitial opacities may reflect edema or pneumonia. Findings are new when compared to the prior examination. 2. Mild cardiomegaly and aortic atherosclerosis. 3. Left chest Perma-Cath with tip in the lower SVC. review of old chart shows ECHO done Oct 2018: Normal left ventricular systolic function. Normal left ventricular cavity size. Moderate concentric left ventricular hypertrophy. Ejection fraction is visually estimated at 65 %. Abnormal Diastolic Function. Mitral valve leaflets appear moderately thickened. Moderate mitral annular calcification. Trace mitral regurgitation. Aortic valve not well visualized. No hemodynamically significant aortic stenosis by doppler. Aortic sclerosis without significant stenosis. Aortic cusps appear mildly calcified. Mild to moderate aortic valve re gurgitation. Estimated peak PA systolic pressure 40 mmHg. Tricuspid valve appears moderately thickened. There is mild tricuspid regurgitation. Objective Vitals Vital Signs Date Temp Pulse Resp B/P (MAP) Pulse Ox O2 O2 Flow FiO2 Time Delivery Rate 12/11/18 98.7 81 16 121/51 94 Room Air 07:55 (74) Intake and Output 12/10/18 12/10/18 12/11/18 1515:00 23:00 07:00 OutputOutput Total 0 ml 1100 ml BalanceBalance 0 ml -1100 ml Results/Medications Result Diagram: 12/10/1851112/10/18511 Home Meds Reported Medications Sennosides* (Senna Lax*) 8.6 Mg Tablet, 1 TAB PO BID, TAB 1/8/19 Sevelamer Carbonate* (Renvela*) 0.8 Gm Powd.pack, 0.8 GM PO WITH MEALS, PACKET 11/16/18 Lansoprazole* (Lansoprazole*) 30 Mg Capsule.dr, 30 MG PO QAM, CAP 11/16/18 Hydralazine Hcl* (Hydralazine Hcl*) 25 Mg Tab, 25 MG PO Q8, #90 TAB 11/16/18 Ferrous Sulfate* (Ferrous Sulfate*) 325 Mg Tabec, 325 MG PO BID for anemia, TAB 11/16/18 Valproate Sodium (Valproic Acid) 250 Mg/5 Ml Solution, 250 MG PO Q8, ML 11/16/18 Insulin Aspart* (Novolog Insulin Pen*) 100 Unit/Ml Soln, 0 SC .SLIDING SCALE AC, EA IF BS 160-200=2 UNITS,201-250=4 UNITS,251-300=8 UNITS,301-350=12 UNITS;351-400=16 UNITS THEN CALL MD. 10/16/18 Ondansetron Hcl* (Zofran*) 4 Mg Tab, 4 MG GTB Q4H PRN for NAUSEA AND OR VOMITING, TAB 10/16/18 Linagliptin (TRADJENTA) 5 Mg Tablet, 5 MG GTB DAILY, TAB 10/16/18 Quetiapine Fumarate* (Seroquel*) 25 Mg Tablet, 25 MG GTB BID, #60 TAB 10/16/18 [Nephro-Roque] No Conflict Check, 0.8 MG GTB DAILY 10/16/18 Polyethylene Glycol* (Miralax*) 17 Gm Powd.pack, 17 GM GTB Q24H, #30 PACKET 10/16/18 Metoprolol Tartrate* (Lopressor*) 50 Mg Tab, 50 MG GTB DAILY, #60 TAB Q MON,WED,FRI,SUN,HOLD FOR SBP<110 OR MT<60 10/16/18 Metoprolol Tartrate* (Lopressor*) 50 Mg Tab, 50 MG GTB BID, #60 TAB QTUE,ANDREW,SAT,HOLD FOR SBP<110 OR MT<60 10/16/18 Linaclotide (LINZESS) 145 Mcg Capsule, 145 MCG GTB DAILY, #30 CAP 10/16/18 Ipratropium-Albuterol (Ipratropium-Albuterol) 0.5-3 Mg/3 Ml Ampul.neb, 3 ML INHALATION Q6, #30 VIAL FOR 14 DAYS,STOP DATE 10/17/18 10/16/18 Hydralazine Hcl* (Hydralazine Hcl*) 25 Mg Tab, 25 MG GTB DAILY, #60 TAB Q TUE,ANDREW,SAT,HOLD IF SBP<110 OR MT<60 10/16/18 Folic Acid* (Folic Acid*) 1 Mg Tablet, 1 MG GTB DAILY, TAB 10/16/18 Docusate Sodium* (Colace*) 100 Mg Capsule, 100 MG GTB DAILY, #30 CAP 10/16/18 Lorazepam* (Lorazepam*) 1 Mg Tablet, 1 MG GTB HS PRN for ANXIETY, #30 TAB Q TUE,ANDREW,SAT 10/16/18 Amlodipine Besylate* (Norvasc*) 5 Mg Tablet, 5 MG GTB BID, TAB TAKE Q TUE,ANDREW,SAT FOR HTN, HOLD FOR SBP<110 OR MT<60 10/16/18 Acetaminophen* (Acetaminophen*) 650 Mg Tablet, 650 MG GTB Q6H PRN for PAIN LEVEL 1-10/10, #30 TAB 10/16/18 Medications Current Medications IV Flush (NS 3 ml) 3 ml PER PROTOCOL IV ; Start 11/16/18 at 09:00 Ondansetron HCl (Zofran Inj) 4 mg Q6H PRN IV NAUSEA AND/OR VOMITING; Start 11/16/18 at 09:00 Acetaminophen (Tylenol Tab) 650 mg Q6H PRN PO PAIN LEVEL 1-3 OR FEVER Last administered on 12/10/18at 03:05; Admin Dose 650 MG; Start 11/16/18 at 09:00 Docusate Sodium (Colace) 100 mg Q12H PRN PO CONSTIPATION; Start 11/16/18 at 09:00 Magnesium Hydroxide (Milk Of Mag) 30 ml DAILY PRN PO CONSTIPATION; Start 11/16/18 at 09:00 Folic Acid (Folic Acid) 1 mg DAILY GTB Last administered on 12/11/18at 08:22; Admin Dose 1 MG; Start 11/16/18 at 09:00 Albuterol/ Ipratropium (Duoneb) 3 ml Q6 PRN HHN sob; Start 11/16/18 at 09:00 Linagliptin (Tradjenta) 5 mg DAILY GTB Last administered on 12/11/18 08:22; Admin Dose 5 MG; Start 11/16/18 at 09:00 Lorazepam (Ativan) 1 mg HS PRN GTB ANXIETY Last administered on 12/10/18 03:05; Admin Dose 1 MG; Start 11/16/18 at 09:00 Quetiapine Fumarate (Seroquel) 25 mg BID GTB Last administered on 12/11/18 08:22; Admin Dose 25 MG; Start 11/16/18 at 09:00 Senna (Senokot) 1 tab BID PO Last administered on 12/11/18 08:22; Admin Dose 1 TAB; Start 11/16/18 at 09:00 Valproate Sodium (Depakene Liquid Cup) 250 mg Q8 PO Last administered on 12/11/18 13:17; Admin Dose 250 MG; Start 11/16/18 at 14:00 Sodium Chloride (NS) -To prime the dialy... DIRECTED FOR HD PRN IV SBP<90; Start 11/16/18 at 15:00 Hydralazine HCl (Apresoline) 10 mg Q4H PRN IV ELEVATED BLOOD PRESSURE Last administered on 12/04/18 21:06; Admin Dose 10 MG; Start 11/17/18 at 10:30 Acetaminophen/ Hydrocodone Bitart ([place] (5/325)) 1 tab Q3H PRN PO MODERATE PAIN LEVEL 4-6 Last administered on 12/06/18 15:38; Admin Dose 1 TAB; Start 11/17/18 at 14:30 Metoprolol Tartrate (Lopressor) 50 mg BID GTB Last administered on 12/11/18 08:22; Admin Dose 50 MG; Start 11/18/18 at 09:00 Albumin Human 50 ml @ 100 mls/hr WITH DIALYSIS PRN IV SBP<90 Last administered on 11/22/18 11:25; Admin Dose 100 MLS/HR; Start 11/18/18 at 14:30 Morphine Sulfate (morphine) 6 mg Q4H PRN PO SEVERE PAIN LEVEL 7-10 Last administered on 11/27/18 00:35; Admin Dose 6 MG; Start 11/18/18 at 23:00 Docusate Sodium (Colace Liquid Cup) 100 mg DAILY GTB Last administered on 12/09/18 08:33; Admin Dose 100 MG; Start 11/19/18 at 09:30 Guaifenesin/ Dextromethorphan (Robitussin Dm Liquid Cup) 5 ml Q4H PRN PO cough Last administered on 12/07/18 23:55; Admin Dose 5 ML; Start 11/20/18 at 14:00 Multivit/Ca Carb/ B Cmplx/FA/Prenat (Kianna-Roque) 1 tab DAILY GTB Last administered on 12/11/18 08:22; Admin Dose 1 TAB; Start 11/24/18 at 09:00 Lansoprazole (Prevacid) 30 mg DAILY GTB Last administered on 12/11/18 08:22; Admin Dose 30 MG; Start 11/26/18 at 09:00 Acetaminophen (Tylenol Supp) 650 mg Q4H PRN [place] MILD PAIN(1-3) OR TEMP>38C Last administered on 11/26/18 08:32; Admin Dose 650 MG; Start 11/26/18 at 08:30 Amlodipine Besylate (Norvasc) 5 mg BID GTB Last administered on 12/11/18 08:22; Admin Dose 5 MG; Start 12/04/18 at 21:00 Ferrous Sulfate (Feosol Liquid Cup) 300 mg BID GTB Last administered on 12/11 08:21; Admin Dose 300 MG; Start 12/05/18 at 09:30 Epoetin Michael (Epogen (Esrd)) 4,000 units MoWeFr@17 SC Last administered on 12/10/18 16:35; Admin Dose 4,000 UNITS; Start 12/06/18 at 17:00 Voriconazole (Vfend) 200 mg BID PO Last administered on 12/11/18 08:22; Admin Dose 200 MG; Start 12/06/18 at 21:00 Hydralazine HCl (Apresoline) 50 mg Q8 PO Last administered on 12/11/18 13:16; Admin Dose 50 MG; Start 12/07/18 at 22:00 Sodium Chloride (NS) -To prime the dialy... DIRECTED FOR HD PRN IV HD; Start 12/07/18 at 17:30 Assessment/Plan Hospital Course (Demo Recall) fungemia Right hand hematoma: Status post IND now Renal failure on dialysis Hypertension Dementia Anemia Possible GI bleed: Status post EGD AI Recommendations: transfusion with HD prn Dialysis as per renal team Neuro workup and treatment as per internal medicine Antibiotic as per ID and internal medicine Thank you for his referral. We will continue to follow along with you as needed basis CHRISTEN ESCOBEDO MD [facility] CHRISTEN ESCOBEDO MD Dec 11, 2018 17:52
[2018-12-11 19:35] VITALS: BP 131/53; PULSE 72; RESP 18
[2018-12-12 02:19] VITALS: BP 124/51; PULSE 69; RESP 17
[2018-12-12] MEDS: ACETAMINOPHEN 325 MG TAB PO PRN ×2 (04:08→21:26)
[2018-12-12] MEDS: VALPROIC ACID LIQUID CUP 250 MG/5 ML CUP PO SCH ×3 (05:31→21:26)
[2018-12-12 08:28] VITALS: BP 107/45; PULSE 68; RESP 18
[2018-12-12] MEDS: METOPROLOL 50 MG TAB GTB SCH ×2 (08:54→21:00)
[2018-12-12] MEDS: LANSOPRAZOLE 30 MG CAP GTB SCH (08:54)
[2018-12-12] MEDS: AMLODIPINE 5 MG TAB GTB SCH ×2 (08:55→21:00)
[2018-12-12] MEDS: FERROUS SULFATE 60 MG/ML 5ML CUP GTB SCH ×2 (08:57→21:23)
[2018-12-12] MEDS: LINAGLIPTIN 5 MG TABLET GTB SCH (08:57)
[2018-12-12] MEDS: VORICONAZOLE 200 MG TAB PO SCH ×2 (08:57→21:25)
[2018-12-12] MEDS: QUETIAPINE 25 MG TAB GTB SCH ×2 (08:58→21:26)
[2018-12-12] MEDS: FOLIC ACID 1 MG TAB GTB SCH (08:58)
[2018-12-12] MEDS: MULTIVIT/CA CARB/B CMPLX/FA TAB GTB SCH (08:58)
[2018-12-12] MEDS: DOCUSATE SODIUM 10 MG/ML (10ML CUP) GTB SCH (08:58)
[2018-12-12] MEDS: SENNA TAB PO SCH ×2 (08:58→21:25)
--- NOTE | 2018-12-12 13:57 | PN ---
DATE: 12/12/2018 SUBJECTIVE: The patient was seen, resting comfortably in no distress. PHYSICAL EXAMINATION: VITAL SIGNS: Temperature 97.9, pulse 68, respirations 18, blood pressure 107/45, saturation 92% on r oom air. GENERAL: No acute distress. HEENT: Normocephalic, atraumatic, pale, resting comfortably. CARDIOVASCULAR: S1, S2, regular rate. LUNGS: Clear. ABDOMEN: Soft, nontender. G-tube in place left IJ is noted. EXTREMITIES: No significant edema throughout. LABORATORY DATA: White count 7.5, hemoglobin 8.6, hematocrit 27, platelets 227 with normal different ial. Chemistry: Sodium 138, potassium 4.4, chloride 103, bicarbonate 31, BUN is 58, creatinine 2.11 . MEDICATIONS: All reviewed. ASSESSMENT AND PLAN: This is an 83-year-old [place] female with end-stage renal disease, dementia, chronic kidney disease, chronic obstructive pulmonary disease, who presented with right hand hematoma status post incision and drainage, also was treated for pneumonia, fungemia and urinary tract infect ion. 1. Respiratory. O2 support as needed. Status post treatment for pneumonia. Chest x-ray only p.r.n . for symptoms. 2. Cardiovascular. Remains stable. 3. Infectious disease. Support for recent fungemia and urinary tract infection. 4. End-stage renal disease, dialysis 3 times a week. Next dialysis tomorrow. 5. Anemia. Hemoglobin and hematocrit stable. Epogen per nephrology. 6. Dysphagia on G tube feeding, bolus feedings per dietary. 7. Continue 1:1 monitoring due to danger to self and risk of fall. 8. Diabetes mellitus, controlled. Continue Tradjenta. Continue sliding scale. 9. relations specialist is following closely regarding various small wounds in the hands. We will follo w. Dictated By: DYLON HULL/MADAN Conf#: [id number] DID#: [id number] CC: CHRISS WELCH MD;*EndCC*
[2018-12-12 14:00] VITALS: BP 105/51; PULSE 74; RESP 19
--- NOTE | 2018-12-12 15:29 | CONS ---
Assessment/Plan Assessment/Plan Hospital Course (Demo Recall) 1. End-stage renal disease on hemodialysis. 2. Gastrointestinal bleed with melena.hx 3. Hypertension. 4. Diabetes. 5. Right hand swelling, s/p I and D on 11/17/18 6. History of falls. 7. Vascular dementia. 8. History of sepsis with VRE. 9. Dysphagia, status post G-tube. 10. History of hip fracture. 11. Thrombocytopenia. 12. Atherosclerotic heart disease. 13. Pneumonia left side 14. Anemia plan per id and continue hd Consultation Date/Type/Reason Admit Date/Time Nov 16, 2018 at 05:51 Initial Consult Date 11/16/18 Type of Consult no distress no sob Requesting Provider: DYLON WALLS MD Date/Time of Note DATE: 12/12/18 TIME: 15:28 Exam/Review of Systems Exam Vitals Vital Signs Date Temp Pulse Resp B/P (MAP) Pulse Ox O2 O2 Flow FiO2 Time Delivery Rate 12/12/18 98.6 74 19 105/51 94 14:00 (69) 12/11/18 Room Air 07:55 Respiratory: clear to auscultation Cardiovascular: regular rate and rhythm Gastrointestinal: soft, nl liver, spleen Results Result Diagram: 12/12/18 0529 12/12/18 0529 Results 24hrs Laboratory Tests Test 12/12/18 05:29 White Blood Count 7.5 # Red Blood Count 3.19 L Hemoglobin 8.6 L Hematocrit 27.1 L Mean Corpuscular Volume 85.0 Mean Corpuscular Hemoglobin 27.0 L Mean Corpuscular Hemoglobin Concent 31.7 L Red Cell Distribution Width 16.8 H Platelet Count 227 Mean Platelet Volume 12.4 H Immature Granulocytes % 1.600 H Neutrophils % 67.0 Lymphocytes % 16.5 Monocytes % 8.9 Eosinophils % 5.3 Basophils % 0.7 Nucleated Red Blood Cells % 0.7 H Immature Granulocytes # 0.120 H Neutrophils # 5.1 Lymphocytes # 1.2 Monocytes # 0.7 Eosinophils # 0.4 Basophils # 0.1 Nucleated Red Blood Cells # 0.1 H Sodium Level 138 Potassium Level 4.4 Chloride Level 103 Carbon Dioxide Level 31 Anion Gap 4 L Blood Urea Nitrogen 58 H Creatinine 2.11 H Est Glomerular Filtrat Rate mL/min Glucose Level 106 Calcium Level 8.7 Phosphorus Level 4.2 Magnesium Level 2.4 Medications Medication Current Medications IV Flush (NS 3 ml) 3 ml PER PROTOCOL IV ; Start 11/16/18 at 09:00 Ondansetron HCl (Zofran Inj) 4 mg Q6H PRN IV NAUSEA AND/OR VOMITING; Start 11/16/18 at 09:00 Acetaminophen (Tylenol Tab) 650 mg Q6H PRN PO PAIN LEVEL 1-3 OR FEVER Last administered on 12/12/18 04:08; Admin Dose 650 MG; Start 11/16/18 at 09:00 Docusate Sodium (Colace) 100 mg Q12H PRN PO CONSTIPATION; Start 11/16/18 at 09:00 Magnesium Hydroxide (Milk Of Mag) 30 ml DAILY PRN PO CONSTIPATION; Start 11/16/18 at 09:00 Folic Acid (Folic Acid) 1 mg DAILY GTB Last administered on 12/12/18 08:58; Adm in Dose 1 MG; Start 11/16/18 at 09:00 Albuterol/ Ipratropium (Duoneb) 3 ml Q6 PRN HHN sob; Start 11/16/18 at 09:00 Linagliptin (Tradjenta) 5 mg DAILY GTB Last administered on 12/12/18 08:57; Admin Dose 5 MG; Start 11/16/18 at 09:00 Lorazepam (Ativan) 1 mg HS PRN GTB ANXIETY Last administered on 12/10/18 03:05; Admin Dose 1 MG; Start 11/16/18 at 09:00 Quetiapine Fumarate (Seroquel) 25 mg BID GTB Last administered on 12/12/18 08:58; Admin Dose 25 MG; Start 11/16/18 at 09:00 Senna (Senokot) 1 tab BID PO Last administered on 12/12/18 08:58; Admin Dose 1 TAB; Start 11/16/18 at 09:00 Valproate Sodium (Depakene Liquid Cup) 250 mg Q8 PO Last administered on 12/12/18 13:18; Admin Dose 250 MG; Start 11/16/18 at 14:00 Sodium Chloride (NS) -To prime the dialy... DIRECTED FOR HD PRN IV SBP<90; Start 11/16/18 at 15:00 Hydralazine HCl (Apresoline) 10 mg Q4H PRN IV ELEVATED BLOOD PRESSURE Last administered on 12/04/18 21:06; Admin Dose 10 MG; Start 11/17/18 at 10:30 Acetaminophen/ Hydrocodone Bitart ([place] (5/325)) 1 tab Q3H PRN PO MODERATE PAIN LEVEL 4-6 Last administered on 12/06/18 15:38; Admin Dose 1 TAB; Start 11/17/18 at 14:30 Metoprolol Tartrate (Lopressor) 50 mg BID GTB Last administered on 12/11/18 20:17; Admin Dose 50 MG; Start 11/18/18 at 09:00 Albumin Human 50 ml @ 100 mls/hr WITH DIALYSIS PRN IV SBP<90 Last administered on 11/22/18 11:25; Admin Dose 100 MLS/HR; Start 11/18/18 at 14:30 Morphine Sulfate (morphine) 6 mg Q4H PRN PO SEVERE PAIN LEVEL 7-10 Last administered on 11/27/18 00:35; Admin Dose 6 MG; Start 11/18/18 at 23:00 Docusate Sodium (Colace Liquid Cup) 100 mg DAILY GTB Last administered on 12/09/18 08:33; Admin Dose 100 MG; Start 11/19/18 at 09:30 Guaifenesin/ Dextromethorphan (Robitussin Dm Liquid Cup) 5 ml Q4H PRN PO cough Last administered on 12/07/18 23:55; Admin Dose 5 ML; Start 11/20/18 at 14:00 Multivit/Ca Carb/ B Cmplx/FA/Prenat (Kianna-Roque) 1 tab DAILY GTB Last administered on 12/12/18 08:58; Admin Dose 1 TAB; Start 11/24/18 at 09:00 Lansoprazole (Prevacid) 30 mg DAILY GTB Last administered on 12/12/18 08:54; Admin Dose 30 MG; Start 11/26/18 at 09:00 Acetaminophen (Tylenol Supp) 650 mg Q4H PRN [place] MILD PAIN(1-3) OR TEMP>38C Last administered on 11/26/18 08:32; Admin Dose 650 MG; Start 11/26/18 at 08:30 Amlodipine Besylate (Norvasc) 5 mg BID GTB Last administered on 2/2/19at 20:16; Admin Dose 5 MG; Start 12/04/18 at 21:00 Ferrous Sulfate (Feosol Liquid Cup) 300 mg BID GTB Last administered on 12/12/18at 08:57; Admin Dose 300 MG; Start 12/05/18 at 09:30 Epoetin Michael (Epogen (Esrd)) 4,000 units MoWeFr@17 SC Last administered on 12/10/18at 16:35; Admin Dose 4,000 UNITS; Start 12/06/18 at 17:00 Voriconazole (Vfend) 200 mg BID PO Last administered on 12/12/18at 08:57; Admin Dose 200 MG; Start 12/06/18 at 21:00 Hydralazine HCl (Apresoline) 50 mg Q8 PO Last administered on 12/12/18at 05:32; Admin Dose 50 MG; Start 12/07/18 at 22:00 Sodium Chloride (NS) -To prime the dialy... DIRECTED FOR HD PRN IV HD; Start 12/07/18 at 17:30 GEOFF KATHLEEN MD Dec 12, 2018 15:29
--- NOTE | 2018-12-12 16:32 | CONS ---
Assessment/Plan Assessment/Plan Hospital Course (Demo Recall) ID PROGRESS NOTE CURRENT ABX: DAY #=> VFEND s/p Merrem # + Cancidas 12/12/18 0529 12/12/18 0529 24H INTERVAL SUMMARY * Awake, alert, responsive -- smiling "hello" -- Patient resting with VSS, no fevers, NAD, without dyspnea * Right hand w/edema and ecchymosis; no open skin seen -- WBC downtrend MICRO * 12/06/18 URINE Cx (+) Glabrata * 12/03/18 BCx (-) * 12/01/18 BCx (-) * 11/29/18 BCx (+) Glabrata * 11/24/18 BCX (+) Glabrata = fungemia PHYSICAL EXAMINATION: GENERAL: Afebrile, VSS, HEENT: AT, NC, anicteric NECK: Supple, trach CHEST: Equal chest rise bilaterally, without dyspnea on observation HEART: Pulse RRR ABDOMEN: Soft / NT EXTREMITIES: Warm, dry - Right hand w/edema and ecchymosis; no open skin seen - SKIN: No rash, no diaphoresis ID ASSESSMENT 83 yo F w/ DEMENTIA admit with: 1. FUNGEMIA == secondary to GLABRATA UTI 2. Status post VRE bacteremia, status post new Pcath 3. End-stage renal disease, hemodialysis dependent 4. Health care Acquired PNA -- ?ASP PNA? 5. Right hand hematoma, status post I&D 11/17/18 6. Diabetes 7. Anemia 8. Failure to thrive (-)MRSA Nares ABX ALLERGIES: KNDA INVASIVES: PIV CURRENT ABX: DAY #=> VFEND s/p Merrem # + Cancidas ID RECOMMENDATIONS/PLAN: Continue on Vfend==> last dose on December 16. March DC on VFEND as above when cleared by primary . Consultation Date/Type/Reason Admit Date/Time Nov 16, 2018 at 05:51 Initial Consult Date 11/16/18 Requesting Provider: DYLON WALLS MD Date/Time of Note DATE: 12/12/18 TIME: 16:28 Exam/Review of Systems Exam Vitals Vital Signs Date Temp Pulse Resp B/P (MAP) Pulse Ox O2 O2 Flow FiO2 Time Delivery Rate 12/12/18 98.6 74 19 105/51 94 14:00 (69) 12/11/18 Room Air 07:55 Results Result Diagram: 12/12/18 0529 12/12/18 0529 Results 24hrs Laboratory Tests Test 12/12/18 05:29 White Blood Count 7.5 # Red Blood Count 3.19 L Hemoglobin 8.6 L Hematocrit 27.1 L Mean Corpuscular Volume 85.0 Mean Corpuscular Hemoglobin 27.0 L Mean Corpuscular Hemoglobin Concent 31.7 L Red Cell Distribution Width 16.8 H Platelet Count 227 Mean Platelet Volume 12.4 H Immature Granulocytes % 1.600 H Neutrophils % 67.0 Lymphocytes % 16.5 Monocytes % 8.9 Eosinophils % 5.3 Basophils % 0.7 Nucleated Red Blood Cells % 0.7 H Immature Granulocytes # 0.120 H Neutrophils # 5.1 Lymphocytes # 1.2 Monocytes # 0.7 Eosinophils # 0.4 Basophils # 0.1 Nucleated Red Blood Cells # 0.1 H Sodium Level 138 Potassium Level 4.4 Chloride Level 103 Carbon Dioxide Level 31 Anion Gap 4 L Blood Urea Nitrogen 58 H Creatinine 2.11 H Est Glomerular Filtrat Rate mL/min Glucose Level 106 Calcium Level 8.7 Phosphorus Level 4.2 Magnesium Level 2.4 Medications Medication Current Medications IV Flush (NS 3 ml) 3 ml PER PROTOCOL IV ; Start 11/16/18 at 09:00 Ondansetron HCl (Zofran Inj) 4 mg Q6H PRN IV NAUSEA AND/OR VOMITING; Start 11/16/18 at 09:00 Acetaminophen (Tylenol Tab) 650 mg Q6H PRN PO PAIN LEVEL 1-3 OR FEVER Last administered on 12/12/18at 04:08; Admin Dose 650 MG; Start 11/16/18 at 09:00 Docusate Sodium (Colace) 100 mg Q12H PRN PO CONSTIPATION; Start 11/16/18 at 09:00 Magnesium Hydroxide (Milk Of Mag) 30 ml DAILY PRN PO CONSTIPATION; Start 11/16/18 at 09:00 Folic Acid (Folic Acid) 1 mg DAILY GTB Last administered on 12/12/18at 08:58; Admin Dose 1 MG; Start 11/16/18 at 09:00 Albuterol/ Ipratropium (Duoneb) 3 ml Q6 PRN HHN sob; Start 11/16/18 at 09:00 Linagliptin (Tradjenta) 5 mg DAILY GTB Last administered on 12/12/18 08:57; Admin Dose 5 MG; Start 11/16/18 at 09:00 Lorazepam (Ativan) 1 mg HS PRN GTB ANXIETY Last administered on 12/10/18 03:05; Admin Dose 1 MG; Start 11/16/18 at 09:00 Quetiapine Fumarate (Seroquel) 25 mg BID GTB Last administered on 12/12/18 08:58; Admin Dose 25 MG; Start 11/16/18 at 09:00 Senna (Senokot) 1 tab BID PO Last administered on 12/12/18 08:58; Admin Dose 1 TAB; Start 11/16/18 at 09:00 Valproate Sodium (Depakene Liquid Cup) 250 mg Q8 PO Last administered on 12/12/18 13:18; Admin Dose 250 MG; Start 11/16/18 at 14:00 Sodium Chloride (NS) -To prime the dialy... DIRECTED FOR HD PRN IV SBP<90; Start 11/16/18 at 15:00 Hydralazine HCl (Apresoline) 10 mg Q4H PRN IV ELEVATED BLOOD PRESSURE Last administered on 12/04/18 21:06; Admin Dose 10 MG; Start 11/17/18 at 10:30 Acetaminophen/ Hydrocodone Bitart ([place] (5/325)) 1 tab Q3H PRN PO MODERATE PAIN LEVEL 4-6 Last administered on 12/06/18 15:38; Admin Dose 1 TAB; Start 11/17/18 at 14:30 Metoprolol Tartrate (Lopressor) 50 mg BID GTB Last administered on 12/11/18 20:17; Admin Dose 50 MG; Start 11/18/18 at 09:00 Albumin Human 50 ml @ 100 mls/hr WITH DIALYSIS PRN IV SBP<90 Last administered on 11/22/18 11:25; Admin Dose 100 MLS/HR; Start 11/18/18 at 14:30 Morphine Sulfate (morphine) 6 mg Q4H PRN PO SEVERE PAIN LEVEL 7-10 Last administered on 11/27/18 00:35; Admin Dose 6 MG; Start 11/18/18 at 23:00 Docusate Sodium (Colace Liquid Cup) 100 mg DAILY GTB Last administered on 12/09/18 08:33; Admin Dose 100 MG; Start 11/19/18 at 09:30 Guaifenesin/ Dextromethorphan (Robitussin Dm Liquid Cup) 5 ml Q4H PRN PO cough Last administered on 12/07/18 23:55; Admin Dose 5 ML; Start 11/20/18 at 14:00 Multivit/Ca Carb/ B Cmplx/FA/Prenat (Kianna-Roque) 1 tab DAILY GTB Last administered on 12/12/18 08:58; Admin Dose 1 TAB; Start 11/24/18 at 09:00 Lansoprazole (Prevacid) 30 mg DAILY GTB Last administered on 12/12/18 08:54; Admin Dose 30 MG; Start 11/26/18 at 09:00 Acetaminophen (Tylenol Supp) 650 mg Q4H PRN [place] MILD PAIN(1-3) OR TEMP>38C Last administered on 11/26/18 08:32; Admin Dose 650 MG; Start 11/26/18 at 08:30 Amlodipine Besylate (Norvasc) 5 mg BID GTB Last administered on 12/11/18 20:16; Admin Dose 5 MG; Start 12/04/18 at 21:00 Ferrous Sulfate (Feosol Liquid Cup) 300 mg BID GTB Last administered on 12/12/18 08:57; Admin Dose 300 MG; Start 12/05/18 at 09:30 Epoetin Michael (Epogen (Esrd)) 4,000 units MoWeFr@17 SC Last administered on 12/10/18 16:35; Admin Dose 4,000 UNITS; Start 12/06/18 at 17:00 Voriconazole (Vfend) 200 mg BID PO Last administered on 12/12/18 08:57; Admin Dose 200 MG; Start 12/06/18 at 21:00 Hydralazine HCl (Apresoline) 50 mg Q8 PO Last administered on 12/12/18 05:32; Admin Dose 50 MG; Start 12/07/18 at 22:00 Sodium Chloride (NS) -To prime the dialy... 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
--- NOTE | 2018-12-12 19:17 | CONS ---
Consult Date/Type/Reason Admit Date/Time Nov 16, 2018 at 05:51 Initial Consult Date 11/16/18 Type of Consultation: cv Requesting Provider: DYLON WALLS MD Date/Time of Note DATE: 12/12/18 TIME: 19:16 Subjective Cardiology follow up note Sl DW/ Staff pt is STILL CONFUSED and intermittently agitated no report of any chest pain or pressure or palpitations but pt is a very poor historian s/p I/D 11/17 EGD 11.18.18 O: General: Elderly frail male in no acute distress HEENT: NC/AT. pupils are equal. round. NECK: NO JVD. no stridor. CV: RRR. systolic murmur; no gallop or rubs. PULM: no wheezing or rhonchi. GI: SOFT, NT, ND, no rebound or guarding neuro: awake Psych: confused rectal: deferred CXR 11/22: 1. Left lung interstitial opacities may reflect edema or pneumonia. Findings are new when compared to the prior examination. 2. Mild cardiomegaly and aortic atherosclerosis. 3. Left chest Perma-Cath with tip in the lower SVC. review of old chart shows ECHO done Oct 2018: Normal left ventricular systolic function. Normal left ventricular cavity size. Moderate concentric left ventricular hypertrophy. Ejection fraction is visually estimated at 65 %. Abnormal Diastolic Function. Mitral valve leaflets appear moderately thickened. Moderate mitral annular calcification. Trace mitral regurgitation. Aortic valve not well visualized. No hemodynamically significant aortic stenosis by doppler. Aortic sclerosis without significant stenosis. Aortic cusps appear mildly calcified. Mild to moderate aortic valve re gurgitation. Estimated peak PA systolic pressure 40 mmHg. Tricuspid valve appears moderately thickened. There is mild tricuspid regurgitation. Objective Vitals Vital Signs Date Temp Pulse Resp B/P (MAP) Pulse Ox O2 O2 Flow FiO2 Time Delivery Rate 12/12/18 98.6 74 19 105/51 94 14:00 (69) 12/11/18 Room Air 07:55 Results/Medications Result Diagram: 12/12/1852812/12/1829 Results 24 hrs Laboratory Tests Test 12/12/18 05:29 White Blood Count 7.5 # Red Blood Count 3.19 L Hemoglobin 8.6 L Hematocrit 27.1 L Mean Corpuscular Volume 85.0 Mean Corpuscular Hemoglobin 27.0 L Mean Corpuscular Hemoglobin Concent 31.7 L Red Cell Distribution Width 16.8 H Platelet Count 227 Mean Platelet Volume 12.4 H Immature Granulocytes % 1.600 H Neutrophils % 67.0 Lymphocytes % 16.5 Monocytes % 8.9 Eosinophils % 5.3 Basophils % 0.7 Nucleated Red Blood Cells % 0.7 H Immature Granulocytes # 0.120 H Neutrophils # 5.1 Lymphocytes # 1.2 Monocytes # 0.7 Eosinophils # 0.4 Basophils # 0.1 Nucleated Red Blood Cells # 0.1 H Sodium Level 138 Potassium Level 4.4 Chloride Level 103 Carbon Dioxide Level 31 Anion Gap 4 L Blood Urea Nitrogen 58 H Creatinine 2.11 H Est Glomerular Filtrat Rate mL/min Glucose Level 106 Calcium Level 8.7 Phosphorus Level 4.2 Magnesium Level 2.4 Home Meds Reported Medications Sennosides* (Senna Lax*) 8.6 Mg Tablet, 1 TAB PO BID, TAB 11/16/18 Sevelamer Carbonate* (Renvela*) 0.8 Gm Powd.pack, 0.8 GM PO WITH MEALS, PACKET 11/16/18 Lansoprazole* (Lansoprazole*) 30 Mg Capsule.dr, 30 MG PO QAM, CAP 11/16/18 Hydralazine Hcl* (Hydralazine Hcl*) 25 Mg Tab, 25 MG PO Q8, #90 TAB 11/16/18 Ferrous Sulfate* (Ferrous Sulfate*) 325 Mg Tabec, 325 MG PO BID for anemia, TAB 11/16/18 Valproate Sodium (Valproic Acid) 250 Mg/5 Ml Solution, 250 MG PO Q8, ML 11/16/18 Insulin Aspart* (Novolog Insulin Pen*) 100 Unit/Ml Soln, 0 SC .SLIDING SCALE AC, EA IF BS 160-200=2 UNITS,201-250=4 UNITS,251-300=8 UNITS,301-350=12 UNITS;351-400=16 UNITS THEN CALL . 10/16/18 Ondansetron Hcl* (Zofran*) 4 Mg Tab, 4 MG GTB Q4H PRN for NAUSEA AND OR VOMITING, TAB 10/16/18 Linagliptin (TRADJENTA) 5 Mg Tablet, 5 MG GTB DAILY, TAB 10/16/18 Quetiapine Fumarate* (Seroquel*) 25 Mg Tablet, 25 MG GTB BID, #60 TAB 10/16/18 [Nephro-Roque] No Conflict Check, 0.8 MG GTB DAILY 10/16/18 Polyethylene Glycol* (Miralax*) 17 Gm Powd.pack, 17 GM GTB Q24H, #30 PACKET 10/16/18 Metoprolol Tartrate* (Lopressor*) 50 Mg Tab, 50 MG GTB DAILY, #60 TAB Q MON,WED,FRI,SUN,HOLD FOR SBP<110 OR IN<60 10/16/18 Metoprolol Tartrate* (Lopressor*) 50 Mg Tab, 50 MG GTB BID, #60 TAB QTUE,ANDREW,SAT,HOLD FOR SBP<110 OR IN<60 10/16/18 Linaclotide (LINZESS) 145 Mcg Capsule, 145 MCG GTB DAILY, #30 CAP 10/16/18 Ipratropium-Albuterol (Ipratropium-Albuterol) 0.5-3 Mg/3 Ml Ampul.neb, 3 ML INHALATION Q6, #30 VIAL FOR 14 DAYS,STOP DATE 10/17/18 10/16/18 Hydralazine Hcl* (Hydralazine Hcl*) 25 Mg Tab, 25 MG GTB DAILY, #60 TAB Q TUE,ANDREW,SAT,HOLD IF SBP<110 OR IN<60 10/16/18 Folic Acid* (Folic Acid*) 1 Mg Tablet, 1 MG GTB DAILY, TAB 10/16/18 Docusate Sodium* (Colace*) 100 Mg Capsule, 100 MG GTB DAILY, #30 CAP 10/16/18 Lorazepam* (Lorazepam*) 1 Mg Tablet, 1 MG GTB HS PRN for ANXIETY, #30 TAB Q TUE,ANDREW,SAT 10/16/18 Amlodipine Besylate* (Norvasc*) 5 Mg Tablet, 5 MG GTB BID, TAB TAKE Q TUE,ANDREW,SAT FOR HTN, HOLD FOR SBP<110 OR IN<60 10/16/18 Acetaminophen* (Acetaminophen*) 650 Mg Tablet, 650 MG GTB Q6H PRN for PAIN LEVEL 1-10/10, #30 TAB 10/16/18 Medications Current Medications IV Flush (NS 3 ml) 3 ml PER PROTOCOL IV ; Start 11/16/18 at 09:00 Ondansetron HCl (Zofran Inj) 4 mg Q6H PRN IV NAUSEA AND/OR VOMITING; Start 11/16/18 at 09:00 Acetaminophen (Tylenol Tab) 650 mg Q6H PRN PO PAIN LEVEL 1-3 OR FEVER Last administered on 12/12/18 04:08; Admin Dose 650 MG; Start 11/16/18 at 09:00 Docusate Sodium (Colace) 100 mg Q12H PRN PO CONSTIPATION; Start 11/16/18 at 09:00 Magnesium Hydroxide (Milk Of Mag) 30 ml DAILY PRN PO CONSTIPATION; Start 11/16/18 at 09:00 Folic Acid (Folic Acid) 1 mg DAILY GTB Last administered on 12/12/18 08:58; Admin Dose 1 MG; Start 11/16/18 at 09:00 Albuterol/ Ipratropium (Duoneb) 3 ml Q6 PRN HHN sob; Start 11/16/18 at 09:00 Linagliptin (Tradjenta) 5 mg DAILY GTB Last administered on 12/12/18 08:57; Admin Dose 5 MG; Start 11/16/18 at 09:00 Lorazepam (Ativan) 1 mg HS PRN GTB ANXIETY Last administered on 12/10/18 03:05; Admin Dose 1 MG; Start 11/16/18 at 09:00 Quetiapine Fumarate (Seroquel) 25 mg BID GTB Last administered on 12/12/18 08:58; Admin Dose 25 MG; Start 11/16/18 at 09:00 Senna (Senokot) 1 tab BID PO Last administered on 12/12/18 08:58; Admin Dose 1 TAB; Start 11/16/18 at 09:00 Valproate Sodium (Depakene Liquid Cup) 250 mg Q8 PO Last administered on 12/12/18 13:18; Admin Dose 250 MG; Start 11/16/18 at 14:00 Sodium Chloride (NS) -To prime the dialy... DIRECTED FOR HD PRN IV SBP<90; Start 11/16/18 at 15:00 Hydralazine HCl (Apresoline) 10 mg Q4H PRN IV ELEVATED BLOOD PRESSURE Last administered on 12/04/18 21:06; Admin Dose 10 MG; Start 11/17/18 at 10:30 Acetaminophen/ Hydrocodone Bitart ([place] (5/325)) 1 tab Q3H PRN PO MODERATE PAIN LEVEL 4-6 Last administered on 12/06/18 15:38; Admin Dose 1 TAB; Start 11/17/18 at 14:30 Metoprolol Tartrate (Lopressor) 50 mg BID GTB Last administered on 12/11/18 20:17; Admin Dose 50 MG; Start 11/18/18 at 09:00 Albumin Human 50 ml @ 100 mls/hr WITH DIALYSIS PRN IV SBP<90 Last administered on 11/22/18 11:25; Admin Dose 100 MLS/HR; Start 11/18/18 at 14:30 Morphine Sulfate (morphine) 6 mg Q4H PRN PO SEVERE PAIN LEVEL 7-10 Last administered on 11/27/18 00:35; Admin Dose 6 MG; Start 11/18/18 at 23:00 Docusate Sodium (Colace Liquid Cup) 100 mg DAILY GTB Last administered on 12/09/18 08:33; Admin Dose 100 MG; Start 11/19/18 at 09:30 Guaifenesin/ Dextromethorphan (Robitussin Dm Liquid Cup) 5 ml Q4H PRN PO cough Last administered on 12/07/18 23:55; Admin Dose 5 ML; Start 11/20/18 at 14:00 Multivit/Ca Carb/ B Cmplx/FA/Prenat (Kianna-Roque) 1 tab DAILY GTB Last administered on 12/12/18 08:58; Admin Dose 1 TAB; Start 11/24/18 at 09:00 Lansoprazole (Prevacid) 30 mg DAILY GTB Last administered on 12/12/18 08:54; Admin Dose 30 MG; Start 11/26/18 at 09:00 Acetaminophen (Tylenol Supp) 650 mg Q4H PRN [place] MILD PAIN(1-3) OR TEMP>38C Last administered on 11/26/18 08:32; Admin Dose 650 MG; Start 11/26/18 at 08:30 Amlodipine Besylate (Norvasc) 5 mg BID GTB Last administered on 12/11/18 20:16; Admin Dose 5 MG; Start 12/04/18 at 21:00 Ferrous Sulfate (Feosol Liquid Cup) 300 mg BID GTB Last administered on 12/12/18 08:57; Admin Dose 300 MG; Start 12/05/18 at 09:30 Epoetin Michael (Epogen (Esrd)) 4,000 units MoWeFr@17 SC Last administered on 12/10/18at 16:35; Admin Dose 4,000 UNITS; Start 12/06/18 at 17:00 Voriconazole (Vfend) 200 mg BID PO Last administered on 12/12/18 08:57; Admin Dose 200 MG; Start 12/06/18 at 21:00 Hydralazine HCl (Apresoline) 50 mg Q8 PO Last administered on 12/12/18at 05:32; Admin Dose 50 MG; Start 12/07/18 at 22:00 Sodium Chloride (NS) -To prime the dialy... DIRECTED FOR HD PRN IV HD; Start 12/07/18 at 17:30 Assessment/Plan Hospital Course (Demo Recall) fungemia Right hand hematoma: Status post IND now Renal failure on dialysis Hypertension Dementia Anemia Possible GI bleed: Status post EGD AI Recommendations: transfusion with HD prn Dialysis as per renal team Neuro workup and treatment as per internal medicine Antibiotic as per ID and internal medicine Thank you for his referral. We will continue to follow along with you as needed basis CHRISTEN ESCOBEDO MD [facility] CHRISTEN ESCOBEDO MD Dec 12, 2018 19:17
[2018-12-12 20:00] VITALS: BP 127/50; PULSE 83; RESP 18
[2018-12-12] MEDS: LORAZEPAM 1 MG TAB GTB PRN (21:26)
[2018-12-13] VITALS (21 sets, daily range): BP systolic 89–169; BP diastolic 42–73; PULSE 72–124; RESP 16–18
[2018-12-13] MEDS: VALPROIC ACID LIQUID CUP 250 MG/5 ML CUP PO SCH ×3 (06:02→21:31)
[2018-12-13] MEDS: QUETIAPINE 25 MG TAB GTB SCH ×2 (08:53→21:18)
[2018-12-13] MEDS: SENNA TAB PO SCH ×2 (08:53→21:18)
[2018-12-13] MEDS: FERROUS SULFATE 60 MG/ML 5ML CUP GTB SCH ×2 (08:53→21:17)
[2018-12-13] MEDS: DOCUSATE SODIUM 10 MG/ML (10ML CUP) GTB SCH (08:53)
[2018-12-13] MEDS: MULTIVIT/CA CARB/B CMPLX/FA TAB GTB SCH (08:53)
[2018-12-13] MEDS: FOLIC ACID 1 MG TAB GTB SCH (08:53)
[2018-12-13] MEDS: LANSOPRAZOLE 30 MG CAP GTB SCH (08:53)
[2018-12-13] MEDS: VORICONAZOLE 200 MG TAB PO SCH ×2 (08:53→21:18)
[2018-12-13] MEDS: LINAGLIPTIN 5 MG TABLET GTB SCH (08:55)
[2018-12-13] MEDS: AMLODIPINE 5 MG TAB GTB SCH (08:56)
[2018-12-13] MEDS: METOPROLOL 50 MG TAB GTB SCH ×2 (08:56→21:20)
[2018-12-13] MEDS: ALBUMIN HUMAN 25% 50 ML IV PRN ×2 (10:30→11:03)
[2018-12-13] MEDS ORDERED: DIGOXIN 500 MCG INJ IV ONE ×2 (12:00→12:30)
[2018-12-13] MEDS ORDERED: HEPARIN 1000 UNITS/ML 10 ML INJ CATHETER STA (12:30)
--- NOTE | 2018-12-13 13:01 | CONS ---
Assessment/Plan Assessment/Plan Hospital Course (Demo Recall) 83 y/o with Hospital Course (Demo Recall) 1. End-stage renal disease on hemodialysis. 2. Gastrointestinal bleed with melena.resolved 3. Hypertension. 4. Diabetes. 5. Right hand swelling, s/p I and D on 11/17/18 6. History of falls. 7. Vascular dementia. 8. History of sepsis with VRE. 9. Dysphagia, status post G-tube. 10. History of hip fracture. 11. Thrombocytopenia. 12. Atherosclerotic heart disease. 13. Pneumonia left side 14. Anemia 15 YEAST BACTERIMIA LIKELY DUE TO UTI 16 Paroxsymal AFib now in sinus Assessment/Plan (Daily) - Hd halted prematurely due to AFIB - Agree with transfer to Tele - cw with permacat - Labs tmw -avoid nephrotoxic drugs -HD MWFr -c/w epogen - Aspiration precautions Consultation Date/Type/Reason Admit Date/Time Nov 16, 2018 at 05:51 Initial Consult Date 11/16/18 Requesting Provider: DYLON WALLS MD Date/Time of Note DATE: 12/13/18 TIME: 13:01 24 HR Interval Summary Free Text/Dictation pt went into AFIB during HD HD stopped pt stable transfer to tele Exam/Review of Systems Exam Vitals Vital Signs Date Temp Pulse Resp B/P (MAP) Pulse Ox O2 O2 Flow FiO2 Time Delivery Rate 12/13/18 119 11:15 12/13/18 18 102/47 97 Room Air 10:15 (65) 12/13/18 96.9 08:47 Intake and Output 12/12/18 12/12/18 12/13/18 1515:00 23:00 07:00 IntakeIntake Total 50 ml 50 ml 20 ml BalanceBalance 50 ml 50 ml 20 ml Exam lethargic rt permcath Respiratory: clear to auscultation Cardiovascular: regular rate and rhythm Gastrointestinal: soft, nl liver, spleen Results Result Diagram: 12/12/1852812/12/18528 Results 24hrs Laboratory Tests Test 12/13/18 08:54 Bedside Glucose 94 Medications Medication Current Medications IV Flush (NS 3 ml) 3 ml PER PROTOCOL IV ; Start 11/16/18 at 09:00 Ondansetron HCl (Zofran Inj) 4 mg Q6H PRN IV NAUSEA AND/OR VOMITING; Start 11/16/18 at 09:00 Acetaminophen (Tylenol Tab) 650 mg Q6H PRN PO PAIN LEVEL 1-3 OR FEVER Last administered on 12/12/18 21:26; Admin Dose 650 MG; Start 11/16/18 at 09:00 Docusate Sodium (Colace) 100 mg Q12H PRN PO CONSTIPATION; Start 11/16/18 at 09:00 Magnesium Hydroxide (Milk Of Mag) 30 ml DAILY PRN PO CONSTIPATION; Start 11/16/18 at 09:00 Folic Acid (Folic Acid) 1 mg DAILY GTB Last administered on 12/13/18 08:53; Admin Dose 1 MG; Start 11/16/18 at 09:00 Albuterol/ Ipratropium (Duoneb) 3 ml Q6 PRN HHN sob; Start 11/16/18 at 09:00 Linagliptin (Tradjenta) 5 mg DAILY GTB Last administered on 12/13/18 08:55; Admin Dose 5 MG; Start 11/16/18 at 09:00 Lorazepam (Ativan) 1 mg HS PRN GTB ANXIETY Last administered on 12/12/18 21:26; Admin Dose 1 MG; Start 11/16/18 at 09:00 Quetiapine Fumarate (Seroquel) 25 mg BID GTB Last administered on 12/13/18 08:53; Admin Dose 25 MG; Start 11/16/18 at 09:00 Senna (Senokot) 1 tab BID PO Last administered on 12/13/18 08:53; Admin Dose 1 TAB; Start 11/16/18 at 09:00 Valproate Sodium (Depakene Liquid Cup) 250 mg Q8 PO Last administered on 12/13/18 06:02; Admin Dose 250 MG; Start 11/16/18 at 14:00 Sodium Chloride (NS) -To prime the dialy... DIRECTED FOR HD PRN IV SBP<90; Start 11/16/18 at 15:00 Hydralazine HCl (Apresoline) 10 mg Q4H PRN IV ELEVATED BLOOD PRESSURE Last administered on 12/04/18 21:06; Admin Dose 10 MG; Start 11/17/18 at 10:30 Acetaminophen/ Hydrocodone Bitart ([place] (5/325)) 1 tab Q3H PRN PO MODERATE PAIN LEVEL 4-6 Last administered on 12/06/18 15:38; Admin Dose 1 TAB; Start 11/17/18 at 14:30 Metoprolol Tartrate (Lopressor) 50 mg BID GTB Last administered on 12/11/18 20:17; Admin Dose 50 MG; Start 11/18/18 at 09:00 Albumin Human 50 ml @ 100 mls/hr WITH DIALYSIS PRN IV SBP<90 Last administered on 12/13/18 11:03; Admin Dose 100 MLS/HR; Start 11/18/18 at 14:30 Morphine Sulfate (morphine) 6 mg Q4H PRN PO SEVERE PAIN LEVEL 7-10 Last administered on 11/27/18 00:35; Admin Dose 6 MG; Start 11/18/18 at 23:00 Docusate Sodium (Colace Liquid Cup) 100 mg DAILY GTB Last administered on 12/13/18 08:53; Admin Dose 100 MG; Start 11/19/18 at 09:30 Guaifenesin/ Dextromethorphan (Robitussin Dm Liquid Cup) 5 ml Q4H PRN PO cough Last administered on 12/07/18 23:55; Admin Dose 5 ML; Start 11/20/18 at 14:00 Multivit/Ca Carb/ B Cmplx/FA/Prenat (Kianna-Roque) 1 tab DAILY GTB Last administered on 12/13/18 08:53; Admin Dose 1 TAB; Start 11/24/18 at 09:00 Lansoprazole (Prevacid) 30 mg DAILY GTB Last administered on 12/13/18 08:53; Admin Dose 30 MG; Start 11/26/18 at 09:00 Acetaminophen (Tylenol Supp) 650 mg Q4H PRN [place] MILD PAIN(1-3) OR TEMP>38C Last administered on 11/26/18 08:32; Admin Dose 650 MG; Start 11/26/18 at 08:30 Amlodipine Besylate (Norvasc) 5 mg BID GTB Last administered on 12/11/18 20:16; Admin Dose 5 MG; Start 12/04/18 at 21:00 Ferrous Sulfate (Feosol Liquid Cup) 300 mg BID GTB Last administered on 08:53; Admin Dose 300 MG; Start 12/05/18 at 09:30 Epoetin Michael (Epogen (Esrd)) 4,000 units MoWeFr@17 SC Last administered on 12/10/18at 16:35; Admin Dose 4,000 UNITS; Start 12/06/18 at 17:00 Voriconazole (Vfend) 200 mg BID PO Last administered on 12/13/18at 08:53; Admin Dose 200 MG; Start 12/06/18 at 21:00 Hydralazine HCl (Apresoline) 50 mg Q8 PO Last administered on 12/13/18at 06:03; Admin Dose 50 MG; Start 12/07/18 at 22:00 Sodium Chloride (NS) -To prime the dialy... DIRECTED FOR HD PRN IV HD; Start 12/07/18 at 17:30 JOSE RAUL ANDREWS MD Dec 13, 2018 13:01
--- NOTE | 2018-12-13 14:00 | CONS ---
Assessment/Plan Assessment/Plan Hospital Course (Demo Recall) No events, in HD, looks comfortable, no fevers Microbiology: Blood culture repeated on November 29 grew Dominique glabrata blood cultures since December 01 that were drawn from permacath negative blood culture on December 03 negative, urine culture growing C glabrata Antimicrobials: Vfend Indwelling: Left chest permacath, PEG Physical examination: Chronically ill-appearing elderly woman who is awake, confused, in no distress. Head atraumatic normocephalic. Neck is supple. Chest rise symmetrical breath sounds diminished bases. Heart: S1-S2. Abdomen soft bowel sounds present, right upper extremity Armani wrapped Assessment: 1. Fungemia secondary to urinary tract infection 2. S/p pneumonia, possibly aspiration 3. Right hand hematoma, status post I&D 11/17/18 4. Status post VRE bacteremia/new Pcath 5. End-stage renal disease, hemodialysis dependent 6. Dementia 7. Failure to thrive 8. Diabetes 9. Anemia 10. S/p sepsis Plan: Remains stable, continue on Vfend==> last dose on December 16. Consultation Date/Type/Reason Admit Date/Time Nov 16, 2018 at 05:51 Initial Consult Date 11/16/18 Type of Consult id Requesting Provider: DYLON WALLS MD Date/Time of Note DATE: 12/13/18 TIME: 13:59 Exam/Review of Systems Exam Vitals Vital Signs Date Temp Pulse Resp B/P (MAP) Pulse Ox O2 O2 Flow FiO2 Time Delivery Rate 12/13/18 119 18 115/56 98 Room Air 13:00 (75) 12/13/18 96.9 08:47 Intake and Output 12/12/18 12/12/18 12/13/18 1515:00 23:00 07:00 IntakeIntake Total 50 ml 50 ml 20 ml BalanceBalance 50 ml 50 ml 20 ml Results Result Diagram: 12/12/18 0529 12/12/18 0529 Results 24hrs Laboratory Tests Test 12/13/18 08:54 Bedside Glucose 94 Medications Medication Current Medications IV Flush (NS 3 ml) 3 ml PER PROTOCOL IV ; Start 11/16/18 at 09:00 Ondansetron HCl (Zofran Inj) 4 mg Q6H PRN IV NAUSEA AND/OR VOMITING; Start 11/16/18 at 09:00 Acetaminophen (Tylenol Tab) 650 mg Q6H PRN PO PAIN LEVEL 1-3 OR FEVER Last administered on 12/12/18 21:26; Admin Dose 650 MG; Start 11/16/18 at 09:00 Docusate Sodium (Colace) 100 mg Q12H PRN PO CONSTIPATION; Start 11/16/18 at 09:00 Magnesium Hydroxide (Milk Of Mag) 30 ml DAILY PRN PO CONSTIPATION; Start 11/16/18 at 09:00 Folic Acid (Folic Acid) 1 mg DAILY GTB Last administered on 12/13/18 08:53; Ad min Dose 1 MG; Start 11/16/18 at 09:00 Albuterol/ Ipratropium (Duoneb) 3 ml Q6 PRN HHN sob; Start 11/16/18 at 09:00 Linagliptin (Tradjenta) 5 mg DAILY GTB Last administered on 12/13/18 08:55; Admin Dose 5 MG; Start 11/16/18 at 09:00 Lorazepam (Ativan) 1 mg HS PRN GTB ANXIETY Last administered on 12/12/18 21:26; Admin Dose 1 MG; Start 11/16/18 at 09:00 Quetiapine Fumarate (Seroquel) 25 mg BID GTB Last administered on 12/13/18 08:53; Admin Dose 25 MG; Start 11/16/18 at 09:00 Senna (Senokot) 1 tab BID PO Last administered on 12/13/18 08:53; Admin Dose 1 TAB; Start 11/16/18 at 09:00 Valproate Sodium (Depakene Liquid Cup) 250 mg Q8 PO Last administered on 12/13/18 06:02; Admin Dose 250 MG; Start 11/16/18 at 14:00 Sodium Chloride (NS) -To prime the dialy... DIRECTED FOR HD PRN IV SBP<90; Start 11/16/18 at 15:00 Hydralazine HCl (Apresoline) 10 mg Q4H PRN IV ELEVATED BLOOD PRESSURE Last administered on 12/04/18 21:06; Admin Dose 10 MG; Start 11/17/18 at 10:30 Acetaminophen/ Hydrocodone Bitart ([place] (5/325)) 1 tab Q3H PRN PO MODERATE PAIN LEVEL 4-6 Last administered on 12/06/18 15:38; Admin Dose 1 TAB; Start 11/17/18 at 14:30 Metoprolol Tartrate (Lopressor) 50 mg BID GTB Last administered on 12/11/18 20:17; Admin Dose 50 MG; Start 11/18/18 at 09:00 Albumin Human 50 ml @ 100 mls/hr WITH DIALYSIS PRN IV SBP<90 Last administered on 12/13/18 11:03; Admin Dose 100 MLS/HR; Start 11/18/18 at 14:30 Morphine Sulfate (morphine) 6 mg Q4H PRN PO SEVERE PAIN LEVEL 7-10 Last administered on 11/27/18 00:35; Admin Dose 6 MG; Start 11/18/18 at 23:00 Docusate Sodium (Colace Liquid Cup) 100 mg DAILY GTB Last administered on 12/13/18 08:53; Admin Dose 100 MG; Start 11/19/18 at 09:30 Guaifenesin/ Dextromethorphan (Robitussin Dm Liquid Cup) 5 ml Q4H PRN PO cough Last administered on 12/07/18 23:55; Admin Dose 5 ML; Start 11/20/18 at 14:00 Multivit/Ca Carb/ B Cmplx/FA/Prenat (Kianna-Roque) 1 tab DAILY GTB Last administered on 12/13/18 08:53; Admin Dose 1 TAB; Start 11/24/18 at 09:00 Lansoprazole (Prevacid) 30 mg DAILY GTB Last administered on 12/13/18 08:53; Admin Dose 30 MG; Start 11/26/18 at 09:00 Acetaminophen (Tylenol Supp) 650 mg Q4H PRN [place] MILD PAIN(1-3) OR TEMP>38C Last administered on 11/26/18 08:32; Admin Dose 650 MG; Start 11/26/18 at 08:30 Amlodipine Besylate (Norvasc) 5 mg BID GTB Last administered on 12/11/18 20:16; Admin Dose 5 MG; Start 12/04/18 at 21:00 Ferrous Sulfate (Feosol Liquid Cup) 300 mg BID GTB Last administered on 12/13/18 08:53; Admin Dose 300 MG; Start 12/05/18 at 09:30 Epoetin Michael (Epogen (Esrd)) 4,000 units MoWeFr@17 SC Last administered on 12/10/18at 16:35; Admin Dose 4,000 UNITS; Start 12/06/18 at 17:00 Voriconazole (Vfend) 200 mg BID PO Last administered on 12/13/18at 08:53; Admin Dose 200 MG; Start 12/06/18 at 21:00 Hydralazine HCl (Apresoline) 50 mg Q8 PO Last administered on 12/13/18at 06:03; Admin Dose 50 MG; Start 12/07/18 at 22:00 Sodium Chloride (NS) -To prime the dialy... DIRECTED FOR HD PRN IV HD; Start 12/07/18 at 17:30 PHYLICIA HOLCOMB NP Dec 13, 2018 14:00
--- NOTE | 2018-12-13 16:22 | PN ---
DATE: 12/13/2018 SUBJECTIVE: Patient seen while being on dialysis. Heart rate was noted to be close to the 120s. I ordered an EKG and it shows atrial fibrillation with rapid ventricular response. I did request to ca ll the utility repairer and give a dose of digoxin IV, 250 mcg and to the stopping dialysis. Dialysis wa s then also stopped. The patient to be transferred to the telemetry unit for close monitoring, likel y stress of the dialysis and all other issues converted her to atrial fibrillation. PHYSICAL EXAMINATION: VITAL SIGNS: Temperature is 96.9, pulse 119, respirations 18, blood pressure 102/47, saturation 97%. GENERAL: The patient is frail, pale. CARDIOVASCULAR: S1, S2, Irregularly irregular, tachycardic. LUNGS: Clear. ABDOMEN: Soft, nontender. EXTREMITIES: No clubbing, cyanosis, or edema. LABORATORY DATA: No new labs today. Labs today shows a white count of 7.4, hemoglobin 8.6. Wood Machinist Apprentice ry shows yesterday BUN 58, creatinine 2.1 and glucose of 106. MEDICATIONS: The medications were all reviewed. The medications are: 1. Hydralazine 50 every 8 hours. 2. ____twice a day. 3. Epogen three times a week. 4. Ferrous sulfate b.i.d. 5. Norvasc 5 mg b.i.d. 4. Prevacid 20 mg daily. 5. Tylenol as directed. 6. Kianna-Roque 1 tablet daily. 6. Robitussin as directed. 7. Colace as directed. 8. Morphine as directed. 9. Lopressor 50 b.i.d. 10. [place] p.r.n. 11. Depakote 250 every 8 hours. 12. Zofran p.r.n. 13. Tylenol p.r.n. 14. Colace 15. Milk of magnesia p.r.n. 16. Folic acid 1 mg daily. 17. DuoNeb q.6h. p.r.n. 18. Tradjenta 5 mg daily. 19. Ativan p.r.n. 20. Seroquel 25 b.i.d. 21. Senna 1tab b.i.d. ASSESSMENT AND PLAN: This is an unfortunate 83-year-old Filip[place] female with end-stage renal disease , dementia, chronic kidney disease, COPD, who presented with right hematoma status post incision and drainage, was treated for pneumonia, fungemia urinary tract infection. 1. Respiratory. Continue O2 support as needed. Status post treatment for pneumonia. Again, follow up chest x-ray. p.r.n. for symptoms. 2. Cardiovascular. The patient with atrial fibrillation with RVR to be transferred to the telemetry unit for rate control, status post digoxin x1. We will continue to follow. Cardiology for further recommendations. The patient is not fully anticoagulated due to anemia, risk of fall, initial presen tation of hematoma as mentioned. 3. Dysphagia. Continue bolus feedings per dietary. 4. Anemia. Transfuse p.r.n. Continue Epogen 3 times a week. 5. End-stage renal disease, dialysis Thursday, Thursday, Thursday. Dialysis was stopped towards the due to the above arrhythmia. 6. Diabetes mellitus. Good control. Continue Tradjenta and sliding scale. 7. channel marketing specialist is following the various wounds. We will follow. Prognosis is guarded. Patient has been in the hospital for quite some time, but quality of life is n ot so good. We will follow. Dictated By: DYLON HULL/MADAN Conf#: [id number] DID#: [id number] CC: CHRISS WELCH MD; DYLON WALLS MD;*EndCC*
[2018-12-13] MEDS: EPOETIN 4000 UNITS/1 ML INJ (ESRD) SC SCH (17:28)
--- NOTE | 2018-12-13 19:05 | CONS ---
Consult Date/Type/Reason Admit Date/Time Nov 16, 2018 at 05:51 Initial Consult Date 11/16/18 Type of Consultation: cv Requesting Provider: DYLON WALLS MD Date/Time of Note DATE: 12/13/18 TIME: 19:00 Subjective Cardiology follow up note Sl DW/ Staff telemetry was reviewed. Events noted. Patient went into atrial fibrillation rapid ventricular response during hemodialysis on December 13, 2018. Patient has been transferred to telemetry and converted back to sinus rhythm remains in sinus rhythm pt is STILL CONFUSED and intermittently agitated no report of any chest pain or pressure or palpitations but pt is a very poor historian s/p I/D 11/17 EGD 11.18.18 O: General: Elderly frail male in no acute distress HEENT: NC/AT. pupils are equal. round. NECK: NO JVD. no stridor. CV: RRR. systolic murmur; no gallop or rubs. PULM: no wheezing or rhonchi. GI: SOFT, NT, ND, no rebound or guarding neuro: awake Psych: confused rectal: deferred CXR 11/22: 1. Left lung interstitial opacities may reflect edema or pneumonia. Findings are new when compared to the prior examination. 2. Mild cardiomegaly and aortic atherosclerosis. 3. Left chest Perma-Cath with tip in the lower SVC. review of old chart shows ECHO done Oct 2018: Normal left ventricular systolic function. Normal left ventricular cavity size. Moderate concentric left ventricular hypertrophy. Ejection fraction is visually estimated at 65 %. Abnormal Diastolic Function. Mitral valve leaflets appear moderately thickened. Moderate mitral annular calcification. Trace mitral regurgitation. Aortic valve not well visualized. No hemodynamically significant aortic stenosis by doppler. Aortic sclerosis without significant stenosis. Aortic cusps appear mildly calcified. Mild to moderate aortic valve regurgitation. Estimated peak PA systolic pressure 40 mmHg. Tricuspid valve appears moderately thickened. There is mild tricuspid regurgitation. Objective Vitals Vital Signs Date Temp Pulse Resp B/P (MAP) Pulse Ox O2 O2 Flow FiO2 Time Delivery Rate 12/13/18 97.5 87 16 121/50 94 16:21 (73) 12/13/18 Room Air 13:00 Intake and Output 12/12/18 12/12/18 12/13/18 1515:00 23:00 07:00 IntakeIntake Total 50 ml 50 ml 20 ml BalanceBalance 50 ml 50 ml 20 ml Results/Medications Result Diagram: 12/12/18 0529 12/12/18 0529 Results 24 hrs Laboratory Tests Test 12/13/18 08:54 Bedside Glucose 94 Home Meds Reported Medications Sennosides* (Senna Lax*) 8.6 Mg Tablet, 1 TAB PO BID, TAB 11/16/18 Sevelamer Carbonate* (Renvela*) 0.8 Gm Powd.pack, 0.8 GM PO WITH MEALS, PACKET 11/16/18 Lansoprazole* (Lansoprazole*) 30 Mg Capsule.dr, 30 MG PO QAM, CAP 11/16/18 Hydralazine Hcl* (Hydralazine Hcl*) 25 Mg Tab, 25 MG PO Q8, #90 TAB 11/16/18 Ferrous Sulfate* (Ferrous Sulfate*) 325 Mg Tabec, 325 MG PO BID for anemia, TAB 11/16/18 Valproate Sodium (Valproic Acid) 250 Mg/5 Ml Solution, 250 MG PO Q8, ML 11/16/18 Insulin Aspart* (Novolog Insulin Pen*) 100 Unit/Ml Soln, 0 SC .SLIDING SCALE AC, EA IF BS 160-200=2 UNITS,201-250=4 UNITS,251-300=8 UNITS,301-350=12 UNITS;351-400=16 UNITS THEN CALL MD. 10/16/18 Ondansetron Hcl* (Zofran*) 4 Mg Tab, 4 MG GTB Q4H PRN for NAUSEA AND OR VOMITING, TAB 10/16/18 Linagliptin (TRADJENTA) 5 Mg Tablet, 5 MG GTB DAILY, TAB 10/16/18 Quetiapine Fumarate* (Seroquel*) 25 Mg Tablet, 25 MG GTB BID, #60 TAB 10/16/18 [Nephro-Roque] No Conflict Check, 0.8 MG GTB DAILY 10/16/18 Polyethylene Glycol* (Miralax*) 17 Gm Powd.pack, 17 GM GTB Q24H, #30 PACKET 10/16/18 Metoprolol Tartrate* (Lopressor*) 50 Mg Tab, 50 MG GTB DAILY, #60 TAB Q MON,WED,FRI,SUN,HOLD FOR SBP<110 OR KS<60 10/16/18 Metoprolol Tartrate* (Lopressor*) 50 Mg Tab, 50 MG GTB BID, #60 TAB QTUE,ANDREW,SAT,HOLD FOR SBP<110 OR KS<60 10/16/18 Linaclotide (LINZESS) 145 Mcg Capsule, 145 MCG GTB DAILY, #30 CAP 10/16/18 Ipratropium-Albuterol (Ipratropium-Albuterol) 0.5-3 Mg/3 Ml Ampul.neb, 3 ML INHALATION Q6, #30 VIAL FOR 14 DAYS,STOP DATE 10/17/18 10/16/18 Hydralazine Hcl* (Hydralazine Hcl*) 25 Mg Tab, 25 MG GTB DAILY, #60 TAB Q TUE,ANDREW,SAT,HOLD IF SBP<110 OR KS<60 10/16/18 Folic Acid* (Folic Acid*) 1 Mg Tablet, 1 MG GTB DAILY, TAB 10/16/18 Docusate Sodium* (Colace*) 100 Mg Capsule, 100 MG GTB DAILY, #30 CAP 10/16/18 Lorazepam* (Lorazepam*) 1 Mg Tablet, 1 MG GTB HS PRN for ANXIETY, #30 TAB Q TUE,ANDREW,SAT 10/16/18 Amlodipine Besylate* (Norvasc*) 5 Mg Tablet, 5 MG GTB BID, TAB TAKE Q TUE,ANDREW,SAT FOR HTN, HOLD FOR SBP<110 OR KS<60 10/16/18 Acetaminophen* (Acetaminophen*) 650 Mg Tablet, 650 MG GTB Q6H PRN for PAIN LEVEL 1-10/10, #30 TAB 10/16/18 Medications Current Medications IV Flush (NS 3 ml) 3 ml PER PROTOCOL IV ; Start 11/16/18 at 09:00 Ondansetron HCl (Zofran Inj) 4 mg Q6H PRN IV NAUSEA AND/OR VOMITING; Start 11/16/18 at 09:00 Acetaminophen (Tylenol Tab) 650 mg Q6H PRN PO PAIN LEVEL 1-3 OR FEVER Last administered on 12/12/18at 21:26; Admin Dose 650 MG; Start 11/16/18 at 09:00 Docusate Sodium (Colace) 100 mg Q12H PRN PO CONSTIPATION; Start 11/16/18 at 09:00 Magnesium Hydroxide (Milk Of Mag) 30 ml DAILY PRN PO CONSTIPATION; Start 11/16/18 at 09:00 Folic Acid (Folic Acid) 1 mg DAILY GTB Last administered on 12/13/18 08:53; Admin Dose 1 MG; Start 11/16/18 at 09:00 Albuterol/ Ipratropium (Duoneb) 3 ml Q6 PRN HHN sob; Start 11/16/18 at 09:00 Linagliptin (Tradjenta) 5 mg DAILY GTB Last administered on 12/13/18 08:55; Admin Dose 5 MG; Start 11/16/18 at 09:00 Lorazepam (Ativan) 1 mg HS PRN GTB ANXIETY Last administered on 12/12/18 21:26; Admin Dose 1 MG; Start 11/16/18 at 09:00 Quetiapine Fumarate (Seroquel) 25 mg BID GTB Last administered on 12/13/18 08:53; Admin Dose 25 MG; Start 11/16/18 at 09:00 Senna (Senokot) 1 tab BID PO Last administered on 12/13/18 08:53; Admin Dose 1 TAB; Start 11/16/18 at 09:00 Valproate Sodium (Depakene Liquid Cup) 250 mg Q8 PO Last administered on 12/13/18 15:03; Admin Dose 250 MG; Start 11/16/18 at 14:00 Sodium Chloride (NS) -To prime the dialy... DIRECTED FOR HD PRN IV SBP<90; Start 11/16/18 at 15:00 Hydralazine HCl (Apresoline) 10 mg Q4H PRN IV ELEVATED BLOOD PRESSURE Last administered on 12/04/18 21:06; Admin Dose 10 MG; Start 11/17/18 at 10:30 Acetaminophen/ Hydrocodone Bitart ([place] (5/325)) 1 tab Q3H PRN PO MODERATE PAIN LEVEL 4-6 Last administered on 12/06/18 15:38; Admin Dose 1 TAB; Start 11/17/18 at 14:30 Metoprolol Tartrate (Lopressor) 50 mg BID GTB Last administered on 12/11/18 20:17; Admin Dose 50 MG; Start 11/18/18 at 09:00 Albumin Human 50 ml @ 100 mls/hr WITH DIALYSIS PRN IV SBP<90 Last administered on 12/13/18 11:03; Admin Dose 100 MLS/HR; Start 11/18/18 at 14:30 Morphine Sulfate (morphine) 6 mg Q4H PRN PO SEVERE PAIN LEVEL 7-10 Last administered on 11/27/18 00:35; Admin Dose 6 MG; Start 11/18/18 at 23:00 Docusate Sodium (Colace Liquid Cup) 100 mg DAILY GTB Last administered on 12/13/18 08:53; Admin Dose 100 MG; Start 11/19/18 at 09:30 Guaifenesin/ Dextromethorphan (Robitussin Dm Liquid Cup) 5 ml Q4H PRN PO cough Last administered on 12/07/18 23:55; Admin Dose 5 ML; Start 11/20/18 at 14:00 Multivit/Ca Carb/ B Cmplx/FA/Prenat (Kianna-Roque) 1 tab DAILY GTB Last administered on 12/13/18 08:53; Admin Dose 1 TAB; Start 11/24/18 at 09:00 Lansoprazole (Prevacid) 30 mg DAILY GTB Last administered on 12/13/18 08:53; Admin Dose 30 MG; Start 11/26/18 at 09:00 Acetaminophen (Tylenol Supp) 650 mg Q4H PRN [place] MILD PAIN(1-3) OR TEMP>38C Last administered on 11/26/18 08:32; Admin Dose 650 MG; Start 11/26/18 at 08:30 Amlodipine Besylate (Norvasc) 5 mg BID GTB Last administered on 12/11/18 20:16; Admin Dose 5 MG; Start 12/04/18 at 21:00 Ferrous Sulfate (Feosol Liquid Cup) 300 mg BID GTB Last administered on 12/13/18 t 08:53; Admin Dose 300 MG; Start 12/05/18 at 09:30 Epoetin Michael (Epogen (Esrd)) 4,000 units MoWeFr@17 SC Last administered on 12/13/18 17:28; Admin Dose 4,000 UNITS; Start 12/06/18 at 17:00 Voriconazole (Vfend) 200 mg BID PO Last administered on 12/13/18 08:53; Admin Dose 200 MG; Start 12/06/18 at 21:00 Hydralazine HCl (Apresoline) 50 mg Q8 PO Last administered on 2/4/19at 15:03; Admin Dose 50 MG; Start 12/07/18 at 22:00 Sodium Chloride (NS) -To prime the dialy... DIRECTED FOR HD PRN IV HD; Start 12/07/18 at 17:30 Assessment/Plan Hospital Course (Demo Recall) Proximal atrial fibrillation rapid ventricular response: Currently back in sinus rhythm fungemia Right hand hematoma: Status post IND now Renal failure on dialysis Hypertension Dementia Anemia Possible GI bleed: Status post EGD AI Recommendations: transfusion with HD prn Patient is not a candidate for full anticoagulation due to the fall risk as well as anemia I would increase the beta-farrah and stop the Norvasc to avoid hypotension Dialysis as per renal team Neuro workup and treatment as per internal medicine Antibiotic as per ID and internal medicine will start asa for now and monitor Thank you for his referral. We will continue to follow along with you as needed basis CHRISTEN ESCOBEDO MD [facility] CHRISTEN ESCOBEDO MD Dec 13, 2018 19:05
[2018-12-13] MEDS: ASPIRIN (EC) 81 MG TAB PO SCH (21:18)
[2018-12-13] MEDS: morphine LIQ (10 MG/5 ML) CUP PO PRN (21:31)
[2018-12-14] VITALS (13 sets, daily range): BP systolic 119–166; BP diastolic 55–97; PULSE 58–94; RESP 16–20
[2018-12-14] MEDS: LORAZEPAM 1 MG TAB GTB PRN (01:20)
[2018-12-14] MEDS: VALPROIC ACID LIQUID CUP 250 MG/5 ML CUP PO SCH ×3 (06:17→21:17)
[2018-12-14] MEDS: ASPIRIN (EC) 81 MG TAB PO SCH (08:47)
[2018-12-14] MEDS: LANSOPRAZOLE 30 MG CAP GTB SCH (08:47)
[2018-12-14] MEDS: FERROUS SULFATE 60 MG/ML 5ML CUP GTB SCH ×2 (08:47→21:08)
[2018-12-14] MEDS: MULTIVIT/CA CARB/B CMPLX/FA TAB GTB SCH (08:47)
[2018-12-14] MEDS: VORICONAZOLE 200 MG TAB PO SCH ×2 (08:47→21:09)
[2018-12-14] MEDS: DOCUSATE SODIUM 10 MG/ML (10ML CUP) GTB SCH (08:47)
[2018-12-14] MEDS: FOLIC ACID 1 MG TAB GTB SCH (08:48)
[2018-12-14] MEDS: SENNA TAB PO SCH ×2 (08:48→21:09)
[2018-12-14] MEDS: QUETIAPINE 25 MG TAB GTB SCH ×2 (08:48→21:09)
[2018-12-14] MEDS: LINAGLIPTIN 5 MG TABLET GTB SCH (08:48)
[2018-12-14] MEDS: METOPROLOL 50 MG TAB GTB SCH ×2 (08:49→21:10)
--- NOTE | 2018-12-14 10:27 | CONS ---
Consult Date/Type/Reason Admit Date/Time Nov 16, 2018 at 05:51 Initial Consult Date 11/16/18 Type of Consultation: cv Requesting Provider: DYLON WALLS MD Date/Time of Note DATE: 12/14/18 TIME: 10:25 Subjective Cardiology follow up note Sl DW/ Staff telemetry was reviewed. PT REMAINS IN NSR/ sinus dominique pt is STILL CONFUSED and intermittently agitated no report of any chest pain or pressure or palpitations but pt is a very poor historian Events noted. 12/13/18: Patient went into atrial fibrillation rapid ventricular response during hemodialysis . Patient has been transferred to telemetry and converted back to sinus rhythm remains in sinus rhythm s/p I/D 11/17 EGD 11.18.18 O: General: Elderly frail male in no acute distress HEENT: NC/AT. pupils are equal. round. NECK: NO JVD. no stridor. CV: RRR. systolic murmur; no gallop or rubs. PULM: no wheezing or rhonchi. GI: SOFT, NT, ND, no rebound or guarding neuro: awake Psych: confused rectal: deferred CXR 11/22: 1. Left lung interstitial opacities may reflect edema or pneumonia. Findings are new when compared to the prior examination. 2. Mild cardiomegaly and aortic atherosclerosis. 3. Left chest Perma-Cath with tip in the lower SVC. review of old chart shows ECHO done Oct 2018: Normal left ventricular systolic function. Normal left ventricular cavity size. Moderate concentric left ventricular hypertrophy. Ejection fraction is visually estimated at 65 %. Abnormal Diastolic Function. Mitral valve leaflets appear moderately thickened. Moderate mitral annular calcification. Trace mitral regurgitation. Aortic valve not well visualized. No hemodynamically significant aortic stenosis by doppler. Aortic sclerosis without significant stenosis. Aortic cusps appear mildly calcified. Mild to moderate aortic valve regurgitation. Estimated peak PA systolic pressure 40 mmHg. Tricuspid valve appears moderately thickened. There is mild tricuspid regurg Objective Vitals Vital Signs Date Temp Pulse Resp B/P (MAP) Pulse Ox O2 O2 Flow FiO2 Time Delivery Rate 12/14/18 66 08:01 12/14/18 97.8 18 165/67 93 07:20 (99) 12/13/18 Room Air 13:00 Intake and Output 12/13/18 12/13/18 12/14/18 1515:00 23:00 07:00 IntakeIntake Total 390 ml 740 ml 35 ml OutputOutput Total 750 ml BalanceBalance -360 ml 740 ml 35 ml Results/Medications Result Diagram: 12/14/18 0743 12/14/18 0743 Results 24 hrs Laboratory Tests Test 12/14/18 07:43 12/14/18 07:59 White Blood Count 7.4 Red Blood Count 3.20 L Hemoglobin 8.5 L Hematocrit 27.4 L Mean Corpuscular Volume 85.6 Mean Corpuscular Hemoglobin 26.6 L Mean Corpuscular Hemoglobin Concent 31.0 L Red Cell Distribution Width 16.8 H Platelet Count 220 Mean Platelet Volume 12.3 H Immature Granulocytes % 1.900 H Neutrophils % 59.8 Lymphocytes % 16.4 Monocytes % 10.7 Eosinophils % 10.7 H Basophils % 0.5 Nucleated Red Blood Cells % 0.8 H Immature Granulocytes # 0.140 H Neutrophils # 4.4 Lymphocytes # 1.2 Monocytes # 0.8 Eosinophils # 0.8 H Basophils # 0.0 Nucleated Red Blood Cells # 0.1 H Sodium Level 138 Potassium Level 4.5 Chloride Level 103 Carbon Dioxide Level 32 H Anion Gap 3 L Blood Urea Nitrogen 37 H Creatinine 1.66 H Est Glomerular Filtrat Rate mL/min Glucose Level 85 Calcium Level 9.2 Magnesium Level 2.3 Total Bilirubin 0.3 Direct Bilirubin 0.00 Indirect Bilirubin 0.3 Aspartate Amino Transf (AST/SGOT) 21 Alanine Aminotransferase (ALT/SGPT) 9 L Alkaline Phosphatase 68 Total Protein 7.1 Albumin 3.6 Globulin 3.50 H Albumin/Globulin Ratio 1.02 Thyroid Stimulating Hormone (TSH) 5.420 H Bedside Glucose 99 Home Meds Reported Medications Sennosides* (Senna Lax*) 8.6 Mg Tablet, 1 TAB PO BID, TAB 11/16/18 Sevelamer Carbonate* (Renvela*) 0.8 Gm Powd.pack, 0.8 GM PO WITH MEALS, PACKET 11/16/18 Lansoprazole* (Lansoprazole*) 30 Mg Capsule.dr, 30 MG PO QAM, CAP 11/16/18 Hydralazine Hcl* (Hydralazine Hcl*) 25 Mg Tab, 25 MG PO Q8, #90 TAB 11/16/18 Ferrous Sulfate* (Ferrous Sulfate*) 325 Mg Tabec, 325 MG PO BID for anemia, TAB 11/16/18 Valproate Sodium (Valproic Acid) 250 Mg/5 Ml Solution, 250 MG PO Q8, ML 11/16/18 Insulin Aspart* (Novolog Insulin Pen*) 100 Unit/Ml Soln, 0 SC .SLIDING SCALE AC, EA IF BS 160-200=2 UNITS,201-250=4 UNITS,251-300=8 UNITS,301-350=12 UNITS;351-400=16 UNITS THEN CALL MD. 10/16/18 Ondansetron Hcl* (Zofran*) 4 Mg Tab, 4 MG GTB Q4H PRN for NAUSEA AND OR VOMITING, TAB 10/16/18 Linagliptin (TRADJENTA) 5 Mg Tablet, 5 MG GTB DAILY, TAB 10/16/18 Quetiapine Fumarate* (Seroquel*) 25 Mg Tablet, 25 MG GTB BID, #60 TAB 10/16/18 [Nephro-Roque] No Conflict Check, 0.8 MG GTB DAILY 10/16/18 Polyethylene Glycol* (Miralax*) 17 Gm Powd.pack, 17 GM GTB Q24H, #30 PACKET 10/16/18 Metoprolol Tartrate* (Lopressor*) 50 Mg Tab, 50 MG GTB DAILY, #60 TAB Q MON,WED,FRI,SUN,HOLD FOR SBP<110 OR NC<60 10/16/18 Metoprolol Tartrate* (Lopressor*) 50 Mg Tab, 50 MG GTB BID, #60 TAB QTUE,ANDREW,SAT,HOLD FOR SBP<110 OR NC<60 10/16/18 Linaclotide (LINZESS) 145 Mcg Capsule, 145 MCG GTB DAILY, #30 CAP 10/16/18 Ipratropium-Albuterol (Ipratropium-Albuterol) 0.5-3 Mg/3 Ml Ampul.neb, 3 ML INH ALATION Q6, #30 VIAL FOR 14 DAYS,STOP DATE 10/17/18 10/16/18 Hydralazine Hcl* (Hydralazine Hcl*) 25 Mg Tab, 25 MG GTB DAILY, #60 TAB Q TUE,ANDREW,SAT,HOLD IF SBP<110 OR NC<60 10/16/18 Folic Acid* (Folic Acid*) 1 Mg Tablet, 1 MG GTB DAILY, TAB 10/16/18 Docusate Sodium* (Colace*) 100 Mg Capsule, 100 MG GTB DAILY, #30 CAP 10/16/18 Lorazepam* (Lorazepam*) 1 Mg Tablet, 1 MG GTB HS PRN for ANXIETY, #30 TAB Q TUE,ANDREW,SAT 10/16/18 Amlodipine Besylate* (Norvasc*) 5 Mg Tablet, 5 MG GTB BID, TAB TAKE Q TUE,ANDREW,SAT FOR HTN, HOLD FOR SBP<110 OR NC<60 10/16/18 Acetaminophen* (Acetaminophen*) 650 Mg Tablet, 650 MG GTB Q6H PRN for PAIN LEVEL 1-10/10, #30 TAB 10/16/18 Medications Current Medications IV Flush (NS 3 ml) 3 ml PER PROTOCOL IV ; Start 11/16/18 at 09:00 Ondansetron HCl (Zofran Inj) 4 mg Q6H PRN IV NAUSEA AND/OR VOMITING; Start 11/16/18 at 09:00 Acetaminophen (Tylenol Tab) 650 mg Q6H PRN PO PAIN LEVEL 1-3 OR FEVER Last admi nistered on 12/12/18 21:26; Admin Dose 650 MG; Start 11/16/18 at 09:00 Docusate Sodium (Colace) 100 mg Q12H PRN PO CONSTIPATION; Start 11/16/18 at 09:00 Magnesium Hydroxide (Milk Of Mag) 30 ml DAILY PRN PO CONSTIPATION; Start 11/16/18 at 09:00 Folic Acid (Folic Acid) 1 mg DAILY GTB Last administered on 12/14/18 08:48; Admin Dose 1 MG; Start 11/16/18 at 09:00 Albuterol/ Ipratropium (Duoneb) 3 ml Q6 PRN HHN sob; Start 11/16/18 at 09:00 Linagliptin (Tradjenta) 5 mg DAILY GTB Last administered on 12/14/18 08:48; Admin Dose 5 MG; Start 11/16/18 at 09:00 Lorazepam (Ativan) 1 mg HS PRN GTB ANXIETY Last administered on 12/14/18 01:20; Admin Dose 1 MG; Start 11/16/18 at 09:00 Quetiapine Fumarate (Seroquel) 25 mg BID GTB Last administered on 12/14/18 08:48; Admin Dose 25 MG; Start 11/16/18 at 09:00 Senna (Senokot) 1 tab BID PO Last administered on 12/14/18 08:48; Admin Dose 1 TAB; Start 11/16/18 at 09:00 Valproate Sodium (Depakene Liquid Cup) 250 mg Q8 PO Last administered on 12/14/18 06:17; Admin Dose 250 MG; Start 11/16/18 at 14:00 Sodium Chloride (NS) -To prime the dialy... DIRECTED FOR HD PRN IV SBP<90; Start 11/16/18 at 15:00 Hydralazine HCl (Apresoline) 10 mg Q4H PRN IV ELEVATED BLOOD PRESSURE Last administered on 12/04/18 21:06; Admin Dose 10 MG; Start 11/17/18 at 10:30 Acetaminophen/ Hydrocodone Bitart ([place] (5/325)) 1 tab Q3H PRN PO MODERATE PAIN LEVEL 4-6 Last administered on 12/06/18 15:38; Admin Dose 1 TAB; Start 11/17/18 at 14:30 Albumin Human 50 ml @ 100 mls/hr WITH DIALYSIS PRN IV SBP<90 Last administered on 12/13/18 11:03; Admin Dose 100 MLS/HR; Start 11/18/18 at 14:30 Morphine Sulfate (morphine) 6 mg Q4H PRN PO SEVERE PAIN LEVEL 7-10 Last administered on 12/13/18 21:31; Admin Dose 6 MG; Start 11/18/18 at 23:00 Docusate Sodium (Colace Liquid Cup) 100 mg DAILY GTB Last administered on 12/14/18 08:47; Admin Dose 100 MG; Start 11/19/18 at 09:30 Guaifenesin/ Dextromethorphan (Robitussin Dm Liquid Cup) 5 ml Q4H PRN PO cough Last administered on 12/07/18 23:55; Admin Dose 5 ML; Start 11/20/18 at 14:00 Multivit/Ca Carb/ B Cmplx/FA/Prenat (Kianna-Roque) 1 tab DAILY GTB Last administered on 12/14/18 08:47; Admin Dose 1 TAB; Start 11/24/18 at 09:00 Lansoprazole (Prevacid) 30 mg DAILY GTB Last administered on 12/14/18 08:47; Admin Dose 30 MG; Start 11/26/18 at 09:00 Acetaminophen (Tylenol Supp) 650 mg Q4H PRN [place] MILD PAIN(1-3) OR TEMP>38C Last administered on 11/26/18 08:32; Admin Dose 650 MG; Start 11/26/18 at 08:30 Ferrous Sulfate (Feosol Liquid Cup) 300 mg BID GTB Last administered on 12/14/18 08:47; Admin Dose 300 MG; Start 12/05/18 at 09:30 Epoetin Michael (Epogen (Esrd)) 4,000 units MoWeFr@17 SC Last administered on 12/13/18 17:28; Admin Dose 4,000 UNITS; Start 12/06/18 at 17:00 Voriconazole (Vfend) 200 mg BID PO Last administered on 12/14/18 08:47; Admin Dose 200 MG; Start 12/06/18 at 21:00 Hydralazine HCl (Apresoline) 50 mg Q8 PO Last administered on 12/14/18 06:20; Admin Dose 50 MG; Start 12/07/18 at 22:00 Sodium Chloride (NS) -To prime the dialy... DIRECTED FOR HD PRN IV HD; Start 12/07/18 at 17:30 Metoprolol Tartrate (Lopressor) 100 mg BID GTB Last administered on 12/14/18 08:49; Admin Dose 100 MG; Start 12/13/18 at 21:00 Aspirin (Halfprin) 81 mg DAILY PO Last administered on 12/14/18 08:47; Admin Dose 81 MG; Start 12/13/18 at 19:30 Assessment/Plan Hospital Course (Demo Recall) Proximal atrial fibrillation rapid ventricular response: Currently back in sinus rhythm fungemia Right hand hematoma: Status post IND now Renal failure on dialysis Hypertension Dementia Anemia Possible GI bleed: Status post EGD AI Recommendations: transfusion with HD prn Patient is not a candidate for full anticoagulation due to the fall risk as well as anemia I would increase the beta-farrah and stop the Norvasc to avoid hypotension Dialysis as per renal team Neuro workup and treatment as per internal medicine Antibiotic as per ID and internal medicine will start asa for now and monitor Thank you for his referral. We will continue to follow along with you as needed basis CHRISTEN ESCOBEOD MD [facility] CHRISTEN ESCOBEDO MD Dec 14, 2018 10:27
--- NOTE | 2018-12-14 11:57 | CONS ---
Assessment/Plan Assessment/Plan Hospital Course (Demo Recall) 83 y/o with Hospital Course (Demo Recall) 1. End-stage renal disease on hemodialysis. 2. Gastrointestinal bleed with melena.resolved 3. Hypertension. 4. Diabetes. 5. Right hand swelling, s/p I and D on 11/17/18 6. History of falls. 7. Vascular dementia. 8. History of sepsis with VRE. 9. Dysphagia, status post G-tube. 10. History of hip fracture. 11. Thrombocytopenia. 12. Atherosclerotic heart disease. 13. Pneumonia left side 14. Anemia 15 YEAST BACTERIMIA LIKELY DUE TO UTI 16 Paroxsymal AFib now in sinus Assessment/Plan (Daily) - Hd tmw - cw with permacath - Labs tmw -avoid nephrotoxic drugs -HD MWFr -c/w epogen - Aspiration precautions Consultation Date/Type/Reason Admit Date/Time Nov 16, 2018 at 05:51 Initial Consult Date 11/16/18 Requesting Provider: DYLON WALLS MD Date/Time of Note DATE: 12/14/18 TIME: 11:54 24 HR Interval Summary Free Text/Dictation No new events. Exam/Review of Systems Exam Vitals Vital Signs Date Temp Pulse Resp B/P (MAP) Pulse Ox O2 O2 Flow FiO2 Time Delivery Rate 12/14/18 97.9 58 18 119/55 96 11:13 (76) 12/13/18 Room Air 13:00 Intake and Output 12/13/18 12/13/18 12/14/18 1515:00 23:00 07:00 IntakeIntake Total 390 ml 740 ml 35 ml OutputOutput Total 750 ml BalanceBalance -360 ml 740 ml 35 ml Exam ethargic rt permcath Respiratory: clear to auscultation Cardiovascular: regular rate and rhythm Gastrointestinal: soft, nl liver, spleen Results Result Diagram: 12/14/18 0743 12/14/18 0743 Results 24hrs Laboratory Tests Test 12/14/18 07:43 12/14/18 07:59 White Blood Count 7.4 Red Blood Count 3.20 L Hemoglobin 8.5 L Hematocrit 27.4 L Mean Corpuscular Volume 85.6 Mean Corpuscular Hemoglobin 26.6 L Mean Corpuscular Hemoglobin Concent 31.0 L Red Cell Distribution Width 16.8 H Platelet Count 220 Mean Platelet Volume 12.3 H Immature Granulocytes % 1.900 H Neutrophils % 59.8 Lymphocytes % 16.4 Monocytes % 10.7 Eosinophils % 10.7 H Basophils % 0.5 Nucleated Red Blood Cells % 0.8 H Immature Granulocytes # 0.140 H Neutrophils # 4.4 Lymphocytes # 1.2 Monocytes # 0.8 Eosinophils # 0.8 H Basophils # 0.0 Nucleated Red Blood Cells # 0.1 H Sodium Level 138 Potassium Level 4.5 Chloride Level 103 Carbon Dioxide Level 32 H Anion Gap 3 L Blood Urea Nitrogen 37 H Creatinine 1.66 H Est Glomerular Filtrat Rate mL/min Glucose Level 85 Calcium Level 9.2 Magnesium Level 2.3 Total Bilirubin 0.3 Direct Bilirubin 0.00 Indirect Bilirubin 0.3 Aspartate Amino Transf (AST/SGOT) 21 Alanine Aminotransferase (ALT/SGPT) 9 L Alkaline Phosphatase 68 Total Protein 7.1 Albumin 3.6 Globulin 3.50 H Albumin/Globulin Ratio 1.02 Thyroid Stimulating Hormone (TSH) 5.420 H Bedside Glucose 99 Medications Medication Current Medications IV Flush (NS 3 ml) 3 ml PER PROTOCOL IV ; Start 11/16/18 at 09:00 Ondansetron HCl (Zofran Inj) 4 mg Q6H PRN IV NAUSEA AND/OR VOMITING; Start 11/16/18 at 09:00 Acetaminophen (Tylenol Tab) 650 mg Q6H PRN PO PAIN LEVEL 1-3 OR FEVER Last administered on 12/12/18at 21:26; Admin Dose 650 MG; Start 11/16/18 at 09:00 Docusate Sodium (Colace) 100 mg Q12H PRN PO CONSTIPATION; Start 11/16/18 at 09:00 Magnesium Hydroxide (Milk Of Mag) 30 ml DAILY PRN PO CONSTIPATION; Start 11/16/18 at 09:00 Folic Acid (Folic Acid) 1 mg DAILY GTB Last administered on 12/14/18at 08:48; Admin Dose 1 MG; Start 11/16/18 at 09:00 Albuterol/ Ipratropium (Duoneb) 3 ml Q6 PRN HHN sob; Start 11/16/18 at 09:00 Linagliptin (Tradjenta) 5 mg DAILY GTB Last administered on 12/14/18at 08:48; Admin Dose 5 MG; Start 11/16/18 at 09:00 Lorazepam (Ativan) 1 mg HS PRN GTB ANXIETY Last administered on 12/14/18 01:20; Admin Dose 1 MG; Start 11/16/18 at 09:00 Quetiapine Fumarate (Seroquel) 25 mg BID GTB Last administered on 12/14/18 08:48; Admin Dose 25 MG; Start 11/16/18 at 09:00 Senna (Senokot) 1 tab BID PO Last administered on 12/14/18 08:48; Admin Dose 1 TAB; Start 11/16/18 at 09:00 Valproate Sodium (Depakene Liquid Cup) 250 mg Q8 PO Last administered on 12/14/18 06:17; Admin Dose 250 MG; Start 11/16/18 at 14:00 Sodium Chloride (NS) -To prime the dialy... DIRECTED FOR HD PRN IV SBP<90; Start 11/16/18 at 15:00 Hydralazine HCl (Apresoline) 10 mg Q4H PRN IV ELEVATED BLOOD PRESSURE Last administered on 12/04/18 21:06; Admin Dose 10 MG; Start 11/17/18 at 10:30 Acetaminophen/ Hydrocodone Bitart ([place] (5/325)) 1 tab Q3H PRN PO MODERATE P AIN LEVEL 4-6 Last administered on 12/06/18 15:38; Admin Dose 1 TAB; Start 11/17/18 at 14:30 Albumin Human 50 ml @ 100 mls/hr WITH DIALYSIS PRN IV SBP<90 Last administered on 12/13/18 11:03; Admin Dose 100 MLS/HR; Start 11/18/18 at 14:30 Morphine Sulfate (morphine) 6 mg Q4H PRN PO SEVERE PAIN LEVEL 7-10 Last administered on 12/13/18 21:31; Admin Dose 6 MG; Start 11/18/18 at 23:00 Docusate Sodium (Colace Liquid Cup) 100 mg DAILY GTB Last administered on 12/14/18 08:47; Admin Dose 100 MG; Start 11/19/18 at 09:30 Guaifenesin/ Dextromethorphan (Robitussin Dm Liquid Cup) 5 ml Q4H PRN PO cough Last administered on 12/07/18 23:55; Admin Dose 5 ML; Start 11/20/18 at 14:00 Multivit/Ca Carb/ B Cmplx/FA/Prenat (Kianna-Roque) 1 tab DAILY GTB Last administered on 12/14/18 08:47; Admin Dose 1 TAB; Start 11/24/18 at 09:00 Lansoprazole (Prevacid) 30 mg DAILY GTB Last administered on 12/14/18 08:47; Admin Dose 30 MG; Start 11/26/18 at 09:00 Acetaminophen (Tylenol Supp) 650 mg Q4H PRN [place] MILD PAIN(1-3) OR TEMP>38C Last administered on 11/26/18 08:32; Admin Dose 650 MG; Start 11/26/18 at 08:30 Ferrous Sulfate (Feosol Liquid Cup) 300 mg BID GTB Last administered on 12/14/18 08:47; Admin Dose 300 MG; Start 12/05/18 at 09:30 Epoetin Michael (Epogen (Esrd)) 4,000 units MoWeFr@17 SC Last administered on 12/13/18 17:28; Admin Dose 4,000 UNITS; Start 12/06/18 at 17:00 Voriconazole (Vfend) 200 mg BID PO Last administered on 12/14/18 08:47; Admin Dose 200 MG; Start 12/06/18 at 21:00 Hydralazine HCl (Apresoline) 50 mg Q8 PO Last administered on 12/14/18 06:20; Admin Dose 50 MG; Start 12/07/18 at 22:00 Sodium Chloride (NS) -To prime the dialy... DIRECTED FOR HD PRN IV HD; Start 12/07/18 at 17:30 Metoprolol Tartrate (Lopressor) 100 mg BID GTB Last administered on 12/14/18 08:49; Admin Dose 100 MG; Start 12/13/18 at 21:00 Aspirin (Halfprin) 81 mg DAILY PO Last administered on 12/14/18 08:47; Admin Dose 81 MG; Start 12/13/18 at 19:30 JOSE RAUL ANDREWS MD Dec 14, 2018 11:57
--- NOTE | 2018-12-14 14:33 | PN ---
DATE: 12/14/2018 SUBJECTIVE: The patient was transferred to the telemetry unit yesterday due to AFib with RVR. The p atient converted to sinus. The patient was placed on aspirin and Lopressor. Amlodipine was disconti nued. The patient is alert, not eating as she is getting whole feeding via bolus feeding. The patie nt is to be dialyzed tomorrow. PHYSICAL EXAMINATION: VITAL SIGNS: Temperature 97.9, pulse 60, respirations 18, blood pressure 119/55, saturation 96%. GENERAL: The patient is in no acute distress. HEENT: Normocephalic, pale. Dry mucous membranes. CARDIOVASCULAR: S1, S2. LUNGS: Clear. ABDOMEN: Soft. G-tube in place. EXTREMITIES: No clubbing, cyanosis or edema. LABORATORY DATA: Sodium 138, potassium 4.5, chloride 103, bicarbonate 22, BUN is 37, creatinine 1.66 , glucose of 85. White count 7.4, hemoglobin 8.5, hematocrit 27, platelet count 220, neutrophils 60% , lymphocytes 16%. MEDICATIONS: Include: 1. Lopressor 100 b.i.d. 2. Aspirin 81 mg daily. 3. Hydralazine 50 q.8. 4. Vfend 200 b.i.d. 5. Epogen as directed. 6. Ferrous sulfate 300 b.i.d. 7. Prevacid 30 daily. 8. Tylenol p.r.n. 9. Kianna-Roque 1 tab daily. 10. Robitussin p.r.n. 11. Colace p.r.n. 12. Morphine p.r.n. 13. Albumin p.r.n. All other meds were reviewed which include: 1. Senna. 2. Seroquel. 3. Ativan. 4. Tradjenta. 5. DuoNeb. 6. Folic acid. 7. Milk of Magnesia. 8. Colace. 9. Tylenol. 10. Zofran. 11. Depakote. 12. Hydralazine. ASSESSMENT AND PLAN: This is an 83-year-old [place] female with end-stage renal disease, dementia, chronic kidney disease on dialysis as mentioned, chronic obstructive pulmonary disease, who presented with right hand hematoma status post incision and drainage, also treated for pneumonia, fungemia and urinary tract infection. 1. Respiratory: Stable. Continue O2 support, status post recent treatment for pneumonia. Continue aspiration precautions. 2. Cardiovascular: The patient with episodic atrial fibrillation with rapid ventricular response, c onverted to sinus, now on beta blockers. Continue aspirin for anticoagulation. Not a candidate for full anticoagulation due to recurrent fall and anemia. 3. Anemia. Transfuse p.r.n. Epogen per nephrology. 4. End-stage renal disease. Next dialysis is tomorrow on Thursday. 5. Diabetes mellitus, remains on Tradjenta. Glucose levels are controlled. 6. Wound care is being provided. 7. Disposition. Once the patient is off the Vfend, the patient can be accepted back to the [facility] facility. I appreciate all the involved doctors following and caring for the patient. PLAN: Finish Vfend on 12/16/2018 and plan for discharge on that day. We will follow. The patient r emains on 1:1 sitter due to danger to self and recurrent falls. Dictated By: DYLON HULL/NTS Conf#: [id number] DID#: [id number] CC: CHRISS WELCH MD;*EndCC*
--- NOTE | 2018-12-14 14:39 | CONS ---
Assessment/Plan Assessment/Plan Hospital Course (Demo Recall) Tx to tele 2 torapid Afib, now in SR, nad Microbiology: Blood culture repeated on November 29 grew Dominique glabrata blood cultures since December 01 that were drawn from permacath negative blood culture on December 03 negative, urine culture growing C glabrata Antimicrobials: Vfend Indwelling: Left chest permacath, PEG Physical examination: Chronically ill-appearing elderly woman who is awake, confused, in no distress. Head atraumatic normocephalic. Neck is supple. Chest rise symmetrical breath sounds diminished bases. Heart: S1-S2. Abdomen soft bowel sounds present, right upper extremity Armani wrapped Assessment: 1. S/p Fungemia secondary to urinary tract infection 2. S/p pneumonia, possibly aspiration 3. Right hand hematoma, status post I&D 11/17/18 4. Status post VRE bacteremia/new Pcath 5. End-stage renal disease, hemodialysis dependent 6. Dementia 7. Failure to thrive 8. Diabetes 9. Anemia 10. S/p sepsis 11. P Afib Plan: Stable, continue on Vfend for 2 more days, cardiology rec-s Consultation Date/Type/Reason Admit Date/Time Nov 16, 2018 at 05:51 Initial Consult Date 11/16/18 Type of Consult id Requesting Provider: DYLON WALLS MD Date/Time of Note DATE: 12/14/18 TIME: 14:36 Exam/Review of Systems Exam Vitals Vital Signs Date Temp Pulse Resp B/P (MAP) Pulse Ox O2 O2 Flow FiO2 Time Delivery Rate 12/14/18 60 12:01 12/14/18 97.9 18 119/55 96 11:13 (76) 12/13/18 Room Air 13:00 Intake and Output 12/13/18 12/13/18 12/14/18 1515:00 23:00 07:00 IntakeIntake Total 390 ml 740 ml 35 ml OutputOutput Total 750 ml BalanceBalance -360 ml 740 ml 35 ml Results Result Diagram: 12/14/18 0743 12/14/18 0743 Results 24hrs Laboratory Tests Test 12/14/18 07:43 12/14/18 07:59 White Blood Count 7.4 Red Blood Count 3.20 L Hemoglobin 8.5 L Hematocrit 27.4 L Mean Corpuscular Volume 85.6 Mean Corpuscular Hemoglobin 26.6 L Mean Corpuscular Hemoglobin Concent 31.0 L Red Cell Distribution Width 16.8 H Platelet Count 220 Mean Platelet Volume 12.3 H Immature Granulocytes % 1.900 H Neutrophils % 59.8 Lymphocytes % 16.4 Monocytes % 10.7 Eosinophils % 10.7 H Basophils % 0.5 Nucleated Red Blood Cells % 0.8 H Immature Granulocytes # 0.140 H Neutrophils # 4.4 Lymphocytes # 1.2 Monocytes # 0.8 Eosinophils # 0.8 H Basophils # 0.0 Nucleated Red Blood Cells # 0.1 H Sodium Level 138 Potassium Level 4.5 Chloride Level 103 Carbon Dioxide Level 32 H Anion Gap 3 L Blood Urea Nitrogen 37 H Creatinine 1.66 H Est Glomerular Filtrat Rate mL/min Glucose Level 85 Calcium Level 9.2 Magnesium Level 2.3 Total Bilirubin 0.3 Direct Bilirubin 0.00 Indirect Bilirubin 0.3 Aspartate Amino Transf (AST/SGOT) 21 Alanine Aminotransferase (ALT/SGPT) 9 L Alkaline Phosphatase 68 Total Protein 7.1 Albumin 3.6 Globulin 3.50 H Albumin/Globulin Ratio 1.02 Thyroid Stimulating Hormone (TSH) 5.420 H Bedside Glucose 99 Medications Medication Current Medications IV Flush (NS 3 ml) 3 ml PER PROTOCOL IV ; Start 11/16/18 at 09:00 Ondansetron HCl (Zofran Inj) 4 mg Q6H PRN IV NAUSEA AND/OR VOMITING; Start 11/16/18 at 09:00 Acetaminophen (Tylenol Tab) 650 mg Q6H PRN PO PAIN LEVEL 1-3 OR FEVER Last administered on 12/12/18at 21:26; Admin Dose 650 MG; Start 11/16/18 at 09:00 Docusate Sodium (Colace) 100 mg Q12H PRN PO CONSTIPATION; Start 11/16/18 at 09:00 Magnesium Hydroxide (Milk Of Mag) 30 ml DAILY PRN PO CONSTIPATION; Start 11/16/18 at 09:00 Folic Acid (Folic Acid) 1 mg DAILY GTB Last administered on 12/14/18at 08:48; Admin Dose 1 MG; Start 11/16/18 at 09:00 Albuterol/ Ipratropium (Duoneb) 3 ml Q6 PRN HHN sob; Start 11/16/18 at 09:00 Linagliptin (Tradjenta) 5 mg DAILY GTB Last administered on 12/14/18at 08:48; Admin Dose 5 MG; Start 11/16/18 at 09:00 Lorazepam (Ativan) 1 mg HS PRN GTB ANXIETY Last administered on 12/14/18 01:20; Admin Dose 1 MG; Start 11/16/18 at 09:00 Quetiapine Fumarate (Seroquel) 25 mg BID GTB Last administered on 12/14/18 08:48; Admin Dose 25 MG; Start 11/16/18 at 09:00 Senna (Senokot) 1 tab BID PO Last administered on 12/14/18 08:48; Admin Dose 1 TAB; Start 11/16/18 at 09:00 Valproate Sodium (Depakene Liquid Cup) 250 mg Q8 PO Last administered on 12/14/18 13:56; Admin Dose 250 MG; Start 11/16/18 at 14:00 Sodium Chloride (NS) -To prime the dialy... DIRECTED FOR HD PRN IV SBP<90; Start 11/16/18 at 15:00 Hydralazine HCl (Apresoline) 10 mg Q4H PRN IV ELEVATED BLOOD PRESSURE Last administered on 12/04/18 21:06; Admin Dose 10 MG; Start 11/17/18 at 10:30 Acetaminophen/ Hydrocodone Bitart ([place] (5/325)) 1 tab Q3H PRN PO MODERATE PAIN LEVEL 4-6 Last administered on 12/06/18 15:38; Admin Dose 1 TAB; Start 11/17/18 at 14:30 Albumin Human 50 ml @ 100 mls/hr WITH DIALYSIS PRN IV SBP<90 Last administered on 12/13/18 11:03; Admin Dose 100 MLS/HR; Start 11/18/18 at 14:30 Morphine Sulfate (morphine) 6 mg Q4H PRN PO SEVERE PAIN LEVEL 7-10 Last administered on 12/13/18 21:31; Admin Dose 6 MG; Start 11/18/18 at 23:00 Docusate Sodium (Colace Liquid Cup) 100 mg DAILY GTB Last administered on 12/14/18 08:47; Admin Dose 100 MG; Start 11/19/18 at 09:30 Guaifenesin/ Dextromethorphan (Robitussin Dm Liquid Cup) 5 ml Q4H PRN PO cough Last administered on 1/29/19at 23:55; Admin Dose 5 ML; Start 11/20/18 at 14:00 Multivit/Ca Carb/ B Cmplx/FA/Prenat (Kianna-Roque) 1 tab DAILY GTB Last administered on 12/14/18 08:47; Admin Dose 1 TAB; Start 11/24/18 at 09:00 Lansoprazole (Prevacid) 30 mg DAILY GTB Last administered on 12/14/18 08:47; Admin Dose 30 MG; Start 11/26/18 at 09:00 Acetaminophen (Tylenol Supp) 650 mg Q4H PRN [place] MILD PAIN(1-3) OR TEMP>38C Last administered on 11/26/18 08:32; Admin Dose 650 MG; Start 11/26/18 at 08:30 Ferrous Sulfate (Feosol Liquid Cup) 300 mg BID GTB Last administered on 12/14/18 08:47; Admin Dose 300 MG; Start 12/05/18 at 09:30 Epoetin Michael (Epogen (Esrd)) 4,000 units MoWeFr@17 SC Last administered on 12/13/18 17:28; Admin Dose 4,000 UNITS; Start 12/06/18 at 17:00 Voriconazole (Vfend) 200 mg BID PO Last administered on 12/14/18 08:47; Admin Dose 200 MG; Start 12/06/18 at 21:00 Hydralazine HCl (Apresoline) 50 mg Q8 PO Last administered on 12/14/18 13:56; Admin Dose 50 MG; Start 12/07/18 at 22:00 Sodium Chloride (NS) -To prime the dialy... DIRECTED FOR HD PRN IV HD; Start 12/07/18 at 17:30 Metoprolol Tartrate (Lopressor) 100 mg BID GTB Last administered on 12/14/18 08:49; Admin Dose 100 MG; Start 12/13/18 at 21:00 Aspirin (Halfprin) 81 mg DAILY PO Last administered on 12/14/18 08:47; Admin Dose 81 MG; Start 12/13/18 at 19:30 PHYLICIA HOLCOMB NP Dec 14, 2018 14:39
[2018-12-15] VITALS (23 sets, daily range): BP systolic 122–158; BP diastolic 52–92; PULSE 62–81; RESP 18–20
[2018-12-15] MEDS: LORAZEPAM 1 MG TAB GTB PRN ×2 (00:56→21:43)
[2018-12-15] MEDS: VALPROIC ACID LIQUID CUP 250 MG/5 ML CUP PO SCH ×4 (06:41→21:42)
[2018-12-15] MEDS: FERROUS SULFATE 60 MG/ML 5ML CUP GTB SCH ×2 (08:29→21:42)
[2018-12-15] MEDS: ASPIRIN (EC) 81 MG TAB PO SCH (08:29)
[2018-12-15] MEDS: FOLIC ACID 1 MG TAB GTB SCH (08:29)
[2018-12-15] MEDS: VORICONAZOLE 200 MG TAB PO SCH ×2 (08:29→21:43)
[2018-12-15] MEDS: MULTIVIT/CA CARB/B CMPLX/FA TAB GTB SCH (08:29)
[2018-12-15] MEDS: SENNA TAB PO SCH ×2 (08:29→21:41)
[2018-12-15] MEDS: QUETIAPINE 25 MG TAB GTB SCH ×2 (08:29→21:42)
[2018-12-15] MEDS: METOPROLOL 50 MG TAB GTB SCH ×2 (08:30→21:42)
[2018-12-15] MEDS: DOCUSATE SODIUM 10 MG/ML (10ML CUP) GTB SCH (08:30)
[2018-12-15] MEDS: LANSOPRAZOLE 30 MG CAP GTB SCH (08:31)
[2018-12-15] MEDS: LINAGLIPTIN 5 MG TABLET GTB SCH (08:33)
--- NOTE | 2018-12-15 08:35 | CONS ---
Consult Date/Type/Reason Admit Date/Time Nov 16, 2018 at 05:51 Initial Consult Date 11/16/18 Type of Consultation: cv Requesting Provider: DYLON WALLS MD Date/Time of Note DATE: 12/15/18 TIME: 08:32 Subjective Cardiology follow up note Sl DW/ Staff telemetry was reviewed. PT REMAINS IN NSR/ sinus dominique pt is STILL CONFUSED and intermittently agitated no report of any chest pain or pressure or palpitations but pt is a very poor historian PT WITH poor po intake per RN report Events noted. 12/13/18: Patient went into atrial fibrillation rapid ventricular response during hemodialysis . Patient has been transferred to telemetry and converted back to sinus rhythm remains in sinus rhythm s/p I/D 11/17 EGD 11.18.18 O: General: Elderly frail male in no acute distress HEENT: NC/AT. pupils are equal. round. NECK: NO JVD. no stridor. CV: RRR. systolic murmur; no gallop or rubs. PULM: no wheezing or rhonchi. GI: SOFT, NT, ND, no rebound or guarding neuro: sleeping Psych: confused rectal: deferred CXR 11/22: 1. Left lung interstitial opacities may reflect edema or pneumonia. Findings are new when compared to the prior examination. 2. Mild cardiomegaly and aortic atherosclerosis. 3. Left chest Perma-Cath with tip in the lower SVC. review of old chart shows ECHO done Oct 2018: Normal left ventricular systolic function. Normal left ventricular cavity size. Moderate concentric left ventricular hypertrophy. Ejection fraction is visually estimated at 65 %. Abnormal Diastolic Function. Mitral valve leaflets appear moderately thickened. Moderate mitral annular calcification. Trace mitral regurgitation. Aortic valve not well visualized. No hemodynamically significant aortic stenosis by doppler. Aortic sclerosis without significant stenosis. Aortic cusps appear mildly calcified. Mild to moderate aortic valve regurgitation. Estimated peak PA systolic pressure 40 mmHg. Tricuspid valve appears moderately thickened. There is mild tricuspid regurg Objective Vitals Vital Signs Date Temp Pulse Resp B/P (MAP) Pulse Ox O2 O2 Flow FiO2 Time Delivery Rate 12/15/18 97.8 70 18 131/70 94 Room Air 07:28 (90) Intake and Output 12/14/18 12/14/18 12/15/18 1515:00 23:00 07:00 IntakeIntake Total 580 ml 340 ml 50 ml BalanceBalance 580 ml 340 ml 50 ml Results/Medications Result Diagram: 12/14/18 0743 12/14/18 0743 Home Meds Reported Medications Sennosides* (Senna Lax*) 8.6 Mg Tablet, 1 TAB PO BID, TAB 11/16/18 Sevelamer Carbonate* (Renvela*) 0.8 Gm Powd.pack, 0.8 GM PO WITH MEALS, PACKET 11/16/18 Lansoprazole* (Lansoprazole*) 30 Mg Capsule.dr, 30 MG PO QAM, CAP 11/16/18 Hydralazine Hcl* (Hydralazine Hcl*) 25 Mg Tab, 25 MG PO Q8, #90 TAB 11/16/18 Ferrous Sulfate* (Ferrous Sulfate*) 325 Mg Tabec, 325 MG PO BID for anemia, TAB 11/16/18 Valproate Sodium (Valproic Acid) 250 Mg/5 Ml Solution, 250 MG PO Q8, ML 11/16/18 Insulin Aspart* (Novolog Insulin Pen*) 100 Unit/Ml Soln, 0 SC .SLIDING SCALE AC, EA IF BS 160-200=2 UNITS,201-250=4 UNITS,251-300=8 UNITS,301-350=12 UNITS;351-400=16 UNITS THEN CALL MD. 10/16/18 Ondansetron Hcl* (Zofran*) 4 Mg Tab, 4 MG GTB Q4H PRN for NAUSEA AND OR VOMITING, TAB 10/16/18 Linagliptin (TRADJENTA) 5 Mg Tablet, 5 MG GTB DAILY, TAB 10/16/18 Quetiapine Fumarate* (Seroquel*) 25 Mg Tablet, 25 MG GTB BID, #60 TAB 10/16/18 [Nephro-Roque] No Conflict Check, 0.8 MG GTB DAILY 10/16/18 Polyethylene Glycol* (Miralax*) 17 Gm Powd.pack, 17 GM GTB Q24H, #30 PACKET 10/16/18 Metoprolol Tartrate* (Lopressor*) 50 Mg Tab, 50 MG GTB DAILY, #60 TAB Q MON,WED,FRI,SUN,HOLD FOR SBP<110 OR NV<60 10/16/18 Metoprolol Tartrate* (Lopressor*) 50 Mg Tab, 50 MG GTB BID, #60 TAB QTUE,ANDREW,SAT,HOLD FOR SBP<110 OR NV<60 10/16/18 Linaclotide (LINZESS) 145 Mcg Capsule, 145 MCG GTB DAILY, #30 CAP 10/16/18 Ipratropium-Albuterol (Ipratropium-Albuterol) 0.5-3 Mg/3 Ml Ampul.neb, 3 ML INHALATION Q6, #30 VIAL FOR 14 DAYS,STOP DATE 10/17/18 10/16/18 Hydralazine Hcl* (Hydralazine Hcl*) 25 Mg Tab, 25 MG GTB DAILY, #60 TAB Q TUE,ANDREW,SAT,HOLD IF SBP<110 OR NV<60 10/16/18 Folic Acid* (Folic Acid*) 1 Mg Tablet, 1 MG GTB DAILY, TAB 10/16/18 Docusate Sodium* (Colace*) 100 Mg Capsule, 100 MG GTB DAILY, #30 CAP 10/16/18 Lorazepam* (Lorazepam*) 1 Mg Tablet, 1 MG GTB HS PRN for ANXIETY, #30 TAB Q TUE,ANDREW,SAT 10/16/18 Amlodipine Besylate* (Norvasc*) 5 Mg Tablet, 5 MG GTB BID, TAB TAKE Q TUE,ANDREW,SAT FOR HTN, HOLD FOR SBP<110 OR NV<60 10/16/18 Acetaminophen* (Acetaminophen*) 650 Mg Tablet, 650 MG GTB Q6H PRN for PAIN LEVEL 1-10/10, #30 TAB 10/16/18 Medications Current Medications IV Flush (NS 3 ml) 3 ml PER PROTOCOL IV ; Start 11/16/18 at 09:00 Ondansetron HCl (Zofran Inj) 4 mg Q6H PRN IV NAUSEA AND/OR VOMITING; Start 11/16/18 at 09:00 Acetaminophen (Tylenol Tab) 650 mg Q6H PRN PO PAIN LEVEL 1-3 OR FEVER Last administered on 12/12/18at 21:26; Admin Dose 650 MG; Start 11/16/18 at 09:00 Docusate Sodium (Colace) 100 mg Q12H PRN PO CONSTIPATION; Start 11/16/18 at 09:00 Magnesium Hydroxide (Milk Of Mag) 30 ml DAILY PRN PO CONSTIPATION; Start 11/16/18 at 09:00 Folic Acid (Folic Acid) 1 mg DAILY GTB Last administered on 12/14/18 08:48; Admin Dose 1 MG; Start 11/16/18 at 09:00 Albuterol/ Ipratropium (Duoneb) 3 ml Q6 PRN HHN sob; Start 11/16/18 at 09:00 Linagliptin (Tradjenta) 5 mg DAILY GTB Last administered on 12/14/18 08:48; Admin Dose 5 MG; Start 11/16/18 at 09:00 Lorazepam (Ativan) 1 mg HS PRN GTB ANXIETY Last administered on 12/15/18 00:56; Admin Dose 1 MG; Start 11/16/18 at 09:00 Quetiapine Fumarate (Seroquel) 25 mg BID GTB Last administered on 12/14/18 21:09; Admin Dose 25 MG; Start 11/16/18 at 09:00 Senna (Senokot) 1 tab BID PO Last administered on 12/14/18 21:09; Admin Dose 1 TAB; Start 11/16/18 at 09:00 Valproate Sodium (Depakene Liquid Cup) 250 mg Q8 PO Last administered on 12/15/18 06:41; Admin Dose 250 MG; Start 11/16/18 at 14:00 Sodium Chloride (NS) -To prime the dialy... DIRECTED FOR HD PRN IV SBP<90; Start 11/16/18 at 15:00 Hydralazine HCl (Apresoline) 10 mg Q4H PRN IV ELEVATED BLOOD PRESSURE Last administered on 12/04/18 21:06; Admin Dose 10 MG; Start 11/17/18 at 10:30 Acetaminophen/ Hydrocodone Bitart ([place] (5/325)) 1 tab Q3H PRN PO MODERATE PAIN LEVEL 4-6 Last administered on 12/06/18 15:38; Admin Dose 1 TAB; Start 11/17/18 at 14:30 Albumin Human 50 ml @ 100 mls/hr WITH DIALYSIS PRN IV SBP<90 Last administered on 12/13/18 11:03; Admin Dose 100 MLS/HR; Start 11/18/18 at 14:30 Morphine Sulfate (morphine) 6 mg Q4H PRN PO SEVERE PAIN LEVEL 7-10 Last administered on 12/13/18 21:31; Admin Dose 6 MG; Start 11/18/18 at 23:00 Docusate Sodium (Colace Liquid Cup) 100 mg DAILY GTB Last administered on 12/14/18 08:47; Admin Dose 100 MG; Start 11/19/18 at 09:30 Guaifenesin/ Dextromethorphan (Robitussin Dm Liquid Cup) 5 ml Q4H PRN PO cough Last administered on 12/07/18 23:55; Admin Dose 5 ML; Start 11/20/18 at 14:00 Multivit/Ca Carb/ B Cmplx/FA/Prenat (Kianna-Roque) 1 tab DAILY GTB Last administered on 12/14/18 08:47; Admin Dose 1 TAB; Start 11/24/18 at 09:00 Lansoprazole (Prevacid) 30 mg DAILY GTB Last administered on 12/14/18 08:47; Admin Dose 30 MG; Start 11/26/18 at 09:00 Acetaminophen (Tylenol Supp) 650 mg Q4H PRN [place] MILD PAIN(1-3) OR TEMP>38C Last administered on 11/26/18 08:32; Admin Dose 650 MG; Start 11/26/18 at 08:30 Ferrous Sulfate (Feosol Liquid Cup) 300 mg BID GTB Last administered on 12/14/18 21:08; Admin Dose 300 MG; Start 12/05/18 at 09:30 Epoetin Michael (Epogen (Esrd)) 4,000 units MoWeFr@17 SC Last administered on 12/13/18 17:28; Admin Dose 4,000 UNITS; Start 12/06/18 at 17:00 Voriconazole (Vfend) 200 mg BID PO Last administered on 12/14/18 21:09; Admin Dose 200 MG; Start 12/06/18 at 21:00 Hydralazine HCl (Apresoline) 50 mg Q8 PO Last administered on 12/15/18 06:42; Admin Dose 50 MG; Start 12/07/18 at 22:00 Sodium Chloride (NS) -To prime the dialy... DIRECTED FOR HD PRN IV HD; Start 12/07/18 at 17:30 Metoprolol Tartrate (Lopressor) 100 mg BID GTB Last administered on 12/14/18 21:10; Admin Dose 100 MG; Start 12/13/18 at 21:00 Aspirin (Halfprin) 81 mg DAILY PO Last administered on 12/14/18at 08:47; Admin D ose 81 MG; Start 12/13/18 at 19:30 Assessment/Plan Hospital Course (Demo Recall) Proximal atrial fibrillation rapid ventricular response: Currently back in sinus rhythm fungemia Right hand hematoma: Status post IND now Renal failure on dialysis Hypertension Dementia Anemia Possible GI bleed: Status post EGD AI Recommendations: transfusion with HD prn Patient is not a candidate for full anticoagulation due to the fall risk as well as anemia cont beta-farrah Dialysis as per renal team Neuro workup and treatment as per internal medicine Antibiotic as per ID and internal medicine asa for now and monitor Thank you for his referral. We will continue to follow along with you as needed basis CHRISTEN ESCOBEDO MD [facility] CHRISTEN ESCOBEDO MD Dec 15, 2018 08:35
--- NOTE | 2018-12-15 11:36 | CONS ---
Assessment/Plan Assessment/Plan Hospital Course (Demo Recall) No events, on/off agitated, no fevers, nad Microbiology: Blood culture repeated on November 29 grew Dominique glabrata blood cultures since December 01 that were drawn from permacath negative blood culture on December 03 negative, urine culture growing C glabrata Antimicrobials: Vfend Indwelling: Left chest permacath, PEG Physical examination: Chronically ill-appearing elderly woman who is awake, confused, in no distress. Head atraumatic normocephalic. Neck is supple. Chest rise symmetrical breath sounds diminished bases. Heart: S1-S2. Abdomen soft bowel sounds present, right upper extremity Armani wrapped Assessment: 1. S/p Fungemia secondary to urinary tract infection 2. S/p pneumonia, possibly aspiration 3. Right hand hematoma, status post I&D 11/17/18 4. Status post VRE bacteremia/new Pcath 5. End-stage renal disease, hemodialysis dependent 6. Dementia 7. Failure to thrive 8. Diabetes 9. Anemia 10. S/p sepsis 11. P Afib Plan: Remains unchanged, will give last dose of Vfend tomorrow, cardiology rec-s noted Consultation Date/Type/Reason Admit Date/Time Nov 16, 2018 at 05:51 Initial Consult Date 11/16/18 Type of Consult id Requesting Provider: DYLON WALLS MD Date/Time of Note DATE: 12/15/18 TIME: 11:34 Exam/Review of Systems Exam Vitals Vital Signs Date Temp Pulse Resp B/P (MAP) Pulse Ox O2 O2 Flow FiO2 Time Delivery Rate 12/15/18 70 08:00 12/15/18 97.8 18 131/70 94 Room Air 07:28 (90) Intake and Output 12/14/18 12/14/18 12/15/18 1515:00 23:00 07:00 IntakeIntake Total 580 ml 340 ml 50 ml BalanceBalance 580 ml 340 ml 50 ml Results Result Diagram: 12/14/18 0743 12/14/18 0743 Results 24hrs Laboratory Tests Test 12/15/18 08:26 Bedside Glucose 110 Medications Medication Current Medications IV Flush (NS 3 ml) 3 ml PER PROTOCOL IV ; Start 11/16/18 at 09:00 Ondansetron HCl (Zofran Inj) 4 mg Q6H PRN IV NAUSEA AND/OR VOMITING; Start 11/16/18 at 09:00 Acetaminophen (Tylenol Tab) 650 mg Q6H PRN PO PAIN LEVEL 1-3 OR FEVER Last administered on 12/12/18 21:26; Admin Dose 650 MG; Start 11/16/18 at 09:00 Docusate Sodium (Colace) 100 mg Q12H PRN PO CONSTIPATION; Start 11/16/18 at 09:00 Magnesium Hydroxide (Milk Of Mag) 30 ml DAILY PRN PO CONSTIPATION; Start 11/16/18 at 09:00 Folic Acid (Folic Acid) 1 mg DAILY GTB Last administered on 12/15/18 08:29; Admin Dose 1 MG; Start 11/16/18 at 09:00 Albuterol/ Ipratropium (Duoneb) 3 ml Q6 PRN HHN sob; Start 11/16/18 at 09:00 Linagliptin (Tradjenta) 5 mg DAILY GTB Last administered on 12/14/18 08:48; Admin Dose 5 MG; Start 11/16/18 at 09:00 Lorazepam (Ativan) 1 mg HS PRN GTB ANXIETY Last administered on 12/15/18 00:56; Admin Dose 1 MG; Start 11/16/18 at 09:00 Quetiapine Fumarate (Seroquel) 25 mg BID GTB Last administered on 12/15/18 08:29; Admin Dose 25 MG; Start 11/16/18 at 09:00 Senna (Senokot) 1 tab BID PO Last administered on 12/14/18 21:09; Admin Dose 1 TAB; Start 11/16/18 at 09:00 Valproate Sodium (Depakene Liquid Cup) 250 mg Q8 PO Last administered on 12/15/18 06:41; Admin Dose 250 MG; Start 11/16/18 at 14:00 Sodium Chloride (NS) -To prime the dialy... DIRECTED FOR HD PRN IV SBP<90; Start 11/16/18 at 15:00 Hydralazine HCl (Apresoline) 10 mg Q4H PRN IV ELEVATED BLOOD PRESSURE Last administered on 12/04/18 21:06; Admin Dose 10 MG; Start 11/17/18 at 10:30 Acetaminophen/ Hydrocodone Bitart ([place] (5/325)) 1 tab Q3H PRN PO MODERATE PAIN LEVEL 4-6 Last administered on 12/06/18 15:38; Admin Dose 1 TAB; Start 11/17/18 at 14:30 Albumin Human 50 ml @ 100 mls/hr WITH DIALYSIS PRN IV SBP<90 Last administered on 12/13/18 11:03; Admin Dose 100 MLS/HR; Start 11/18/18 at 14:30 Morphine Sulfate (morphine) 6 mg Q4H PRN PO SEVERE PAIN LEVEL 7-10 Last adminis tered on 12/13/18 21:31; Admin Dose 6 MG; Start 11/18/18 at 23:00 Docusate Sodium (Colace Liquid Cup) 100 mg DAILY GTB Last administered on 12/14/18 08:47; Admin Dose 100 MG; Start 11/19/18 at 09:30 Guaifenesin/ Dextromethorphan (Robitussin Dm Liquid Cup) 5 ml Q4H PRN PO cough Last administered on 12/07/18 23:55; Admin Dose 5 ML; Start 11/20/18 at 14:00 Multivit/Ca Carb/ B Cmplx/FA/Prenat (Kianna-Roque) 1 tab DAILY GTB Last administered on 12/15/18 08:29; Admin Dose 1 TAB; Start 11/24/18 at 09:00 Lansoprazole (Prevacid) 30 mg DAILY GTB Last administered on 12/15/18 08:31; Admin Dose 30 MG; Start 11/26/18 at 09:00 Acetaminophen (Tylenol Supp) 650 mg Q4H PRN [place] MILD PAIN(1-3) OR TEMP>38C Last administered on 11/26/18 08:32; Admin Dose 650 MG; Start 11/26/18 at 08:30 Ferrous Sulfate (Feosol Liquid Cup) 300 mg BID GTB Last administered on 12/15/18 08:29; Admin Dose 300 MG; Start 12/05/18 at 09:30 Epoetin Michael (Epogen (Esrd)) 4,000 units MoWeFr@17 SC Last administered on 12/13/18 17:28; Admin Dose 4,000 UNITS; Start 12/06/18 at 17:00 Voriconazole (Vfend) 200 mg BID PO Last administered on 12/15/18 08:29; Admin Dose 200 MG; Start 12/06/18 at 21:00 Hydralazine HCl (Apresoline) 50 mg Q8 PO Last administered on 12/15/18at 06:42; Admin Dose 50 MG; Start 12/07/18 at 22:00 Sodium Chloride (NS) -To prime the dialy... DIRECTED FOR HD PRN IV HD; Start 12/07/18 at 17:30 Metoprolol Tartrate (Lopressor) 100 mg BID GTB Last administered on 12/14/18at 21:10; Admin Dose 100 MG; Start 12/13/18 at 21:00 Aspirin (Halfprin) 81 mg DAILY PO Last administered on 12/15/18at 08:29; Admin Dose 81 MG; Start 12/13/18 at 19:30 PHYLICIA HOLCOMB NP Dec 15, 2018 11:36
--- NOTE | 2018-12-15 15:07 | PN ---
DATE: 12/15/2018 SUBJECTIVE: The patient was seen, appears to be comfortable, currently being dialyzed. Last dose of Vfend is for tomorrow. PHYSICAL EXAMINATION: VITAL SIGNS: Temperature is 98.2, pulse 70, respiration 18, blood pressure 154/67, saturation 93%. GENERAL: In no acute distress. HEENT: The patient is pale. CARDIOVASCULAR: S1, S2. Regular rate. LUNGS: Clear. ABDOMEN: Soft. G-tube in place. EXTREMITIES: No clubbing, cyanosis or edema, contracted in the legs. LABORATORY DATA: White count 7.4, hemoglobin 8.5, hematocrit 27. This was yesterday. Last glucose level is 158, 110 and 199. MEDICATIONS: All reviewed, they include: 1. Vfend. 2. Metoprolol. 3. Aspirin. 4. Hydralazine. 5. Epogen. 6. Ferrous sulfate. 7. Prevacid. 8. Kianna-Roque. 9. Colace. 10. Morphine p.r.n. 11. [place] p.r.n. 12. Depakote 250 q.8 hours. 13. Zofran p.r.n. 14. Folic acid. 15. DuoNeb. 16. Tradjenta. 17. Ativan. 18. Seroquel. 19. Senna. ASSESSMENT AND PLAN: This is an 83-year-old [place] female with end-stage renal disease, dementia, chronic kidney disease on dialysis, chronic obstructive pulmonary disease, who presented with right h and hematoma status post incision and drainage, also treated for pneumonia, fungemia and urinary trac t infection. 1. Respiratory: Stable. O2 support as needed. Status post treatment for pneumonia. Chest x-ray p .r.n. 2. Cardiovascular. The patient with recent episode of atrial fibrillation, now on beta blockers. R emains in sinus, on aspirin for anticoagulation. The patient has a risk of fall, so she is not fully anticoagulated. 3. Anemia. Epogen and transfusion p.r.n. 4. End-stage renal disease, dialysis today. 5. Diabetes mellitus. Continue Tradjenta. Glucose levels are controlled. 6. Wound care is being provided. DISPOSITION: Tomorrow after she completes her dose of Vfend. We will follow. Dictated By: DYLON HULL/MADAN Conf#: [id number] [facility]#: [id number] CC: CHRISS WELCH MD;*[facility]*
--- NOTE | 2018-12-15 16:05 | CONS ---
Assessment/Plan Assessment/Plan Hospital Course (Demo Recall) 83 y/o with Hospital Course (Demo Recall) 1. End-stage renal disease on hemodialysis. 2. Gastrointestinal bleed with melena.resolved 3. Hypertension. 4. Diabetes. 5. Right hand swelling, s/p I and D on 11/17/18 6. History of falls. 7. Vascular dementia. 8. History of sepsis with VRE. 9. Dysphagia, status post G-tube. 10. History of hip fracture. 11. Thrombocytopenia. 12. Atherosclerotic heart disease. 13. Pneumonia left side 14. Anemia 15 YEAST BACTERIMIA LIKELY DUE TO UTI 16 Paroxsymal AFib now in sinus Assessment/Plan (Daily) - Hd today will start slow - cw with permacath -avoid nephrotoxic drugs -HD MWFr -c/w epogen - Aspiration precautions Consultation Date/Type/Reason Admit Date/Time Nov 16, 2018 at 05:51 Initial Consult Date 11/16/18 Requesting Provider: DYLON WALLS MD Date/Time of Note DATE: 12/15/18 TIME: 16:04 24 HR Interval Summary Free Text/Dictation no new events HD planned today Exam/Review of Systems Exam Vitals Vital Signs Date Temp Pulse Resp B/P (MAP) Pulse Ox O2 O2 Flow FiO2 Time Delivery Rate 12/15/18 70 12:00 12/15/18 98.2 154/67 93 Room Air 11:46 (96) 12/15/18 18 07:28 Intake and Output 12/14/18 12/14/18 12/15/18 1414:59 22:59 06:59 IntakeIntake Total 580 ml 340 ml 50 ml BalanceBalance 580 ml 340 ml 50 ml Exam lethargic rt permcath Respiratory: clear to auscultation Cardiovascular: regular rate and rhythm Gastrointestinal: soft, nl liver, spleen Results Result Diagram: 12/14/18 0743 12/14/18 0743 Results 24hrs Laboratory Tests Test 12/15/18 08:26 12/15/18 12:17 Bedside Glucose 110 158 Medications Medication Current Medications IV Flush (NS 3 ml) 3 ml PER PROTOCOL IV ; Start 11/16/18 at 09:00 Ondansetron HCl (Zofran Inj) 4 mg Q6H PRN IV NAUSEA AND/OR VOMITING; Start 11/16/18 at 09:00 Acetaminophen (Tylenol Tab) 650 mg Q6H PRN PO PAIN LEVEL 1-3 OR FEVER Last administered on 12/12/18 21:26; Admin Dose 650 MG; Start 11/16/18 at 09:00 Docusate Sodium (Colace) 100 mg Q12H PRN PO CONSTIPATION; Start 11/16/18 at 09:00 Magnesium Hydroxide (Milk Of Mag) 30 ml DAILY PRN PO CONSTIPATION; Start 11/16/18 at 09:00 Folic Acid (Folic Acid) 1 mg DAILY GTB Last administered on 12/15/18 08:29; Admin Dose 1 MG; Start 11/16/18 at 09:00 Albuterol/ Ipratropium (Duoneb) 3 ml Q6 PRN HHN sob; Start 11/16/18 at 09:00 Linagliptin (Tradjenta) 5 mg DAILY GTB Last administered on 12/14/18 08:48; Admin Dose 5 MG; Start 11/16/18 at 09:00 Lorazepam (Ativan) 1 mg HS PRN GTB ANXIETY Last administered on 12/15/18 00:56; Admin Dose 1 MG; Start 11/16/18 at 09:00 Quetiapine Fumarate (Seroquel) 25 mg BID GTB Last administered on 12/15/18 0 8:29; Admin Dose 25 MG; Start 11/16/18 at 09:00 Senna (Senokot) 1 tab BID PO Last administered on 12/14/18 21:09; Admin Dose 1 TAB; Start 11/16/18 at 09:00 Valproate Sodium (Depakene Liquid Cup) 250 mg Q8 PO Last administered on 12/15/18 06:41; Admin Dose 250 MG; Start 11/16/18 at 14:00 Sodium Chloride (NS) -To prime the dialy... DIRECTED FOR HD PRN IV SBP<90; Start 11/16/18 at 15:00 Hydralazine HCl (Apresoline) 10 mg Q4H PRN IV ELEVATED BLOOD PRESSURE Last administered on 12/04/18 21:06; Admin Dose 10 MG; Start 11/17/18 at 10:30 Acetaminophen/ Hydrocodone Bitart ([place] (5/325)) 1 tab Q3H PRN PO MODERATE PAIN LEVEL 4-6 Last administered on 12/06/18 15:38; Admin Dose 1 TAB; Start 11/17/18 at 14:30 Albumin Human 50 ml @ 100 mls/hr WITH DIALYSIS PRN IV SBP<90 Last administered on 12/13/18 11:03; Admin Dose 100 MLS/HR; Start 11/18/18 at 14:30 Morphine Sulfate (morphine) 6 mg Q4H PRN PO SEVERE PAIN LEVEL 7-10 Last administered on 12/13/18 21:31; Admin Dose 6 MG; Start 11/18/18 at 23:00 Docusate Sodium (Colace Liquid Cup) 100 mg DAILY GTB Last administered on 12/14/18 08:47; Admin Dose 100 MG; Start 11/19/18 at 09:30 Guaifenesin/ Dextromethorphan (Robitussin Dm Liquid Cup) 5 ml Q4H PRN PO cough Last administered on 12/07/18 23:55; Admin Dose 5 ML; Start 11/20/18 at 14:00 Multivit/Ca Carb/ B Cmplx/FA/Prenat (Kianna-Roque) 1 tab DAILY GTB Last administered on 12/15/18 08:29; Admin Dose 1 TAB; Start 11/24/18 at 09:00 Lansoprazole (Prevacid) 30 mg DAILY GTB Last administered on 12/15/18 08:31; Admin Dose 30 MG; Start 11/26/18 at 09:00 Acetaminophen (Tylenol Supp) 650 mg Q4H PRN [place] MILD PAIN(1-3) OR TEMP>38C Last administered on 11/26/18 08:32; Admin Dose 650 MG; Start 11/26/18 at 08:30 Ferrous Sulfate (Feosol Liquid Cup) 300 mg BID GTB Last administered on 12/15/18 08:29; Admin Dose 300 MG; Start 12/05/18 at 09:30 Epoetin Michael (Epogen (Esrd)) 4,000 units MoWeFr@17 SC Last administered on 12/13/18 17:28; Admin Dose 4,000 UNITS; Start 12/06/18 at 17:00 Voriconazole (Vfend) 200 mg BID PO Last administered on 12/15/18 08:29; Admin Dose 200 MG; Start 12/06/18 at 21:00 Hydralazine HCl (Apresoline) 50 mg Q8 PO Last administered on 12/15/18at 06:42; Admin Dose 50 MG; Start 12/07/18 at 22:00 Sodium Chloride (NS) -To prime the dialy... DIRECTED FOR HD PRN IV HD; Start 12/07/18 at 17:30 Metoprolol Tartrate (Lopressor) 100 mg BID GTB Last administered on 12/14/18at 21:10; Admin Dose 100 MG; Start 12/13/18 at 21:00 Aspirin (Halfprin) 81 mg DAILY PO Last administered on 12/15/18at 08:29; Admin Dose 81 MG; Start 12/13/18 at 19:30 JOSE RAUL ANDREWS MD Dec 15, 2018 16:05
[2018-12-15] MEDS: EPOETIN 4000 UNITS/1 ML INJ (ESRD) SC SCH (16:43)
[2018-12-15] MEDS: ACETAMINOPHEN 325 MG TAB PO PRN (21:42)
[2018-12-16 02:00] VITALS: BP 152/63; PULSE 65; RESP 18
[2018-12-16] MEDS: VALPROIC ACID LIQUID CUP 250 MG/5 ML CUP PO SCH ×3 (06:17→23:46)
[2018-12-16 06:20] VITALS: BP 136/53; PULSE 75
[2018-12-16 07:10] VITALS: BP 148/66; PULSE 80; RESP 18
--- NOTE | 2018-12-16 08:47 | CONS ---
Consult Date/Type/Reason Admit Date/Time Nov 16, 2018 at 05:51 Initial Consult Date 11/16/18 Type of Consultation: cv Requesting Provider: DYLON WALLS MD Date/Time of Note DATE: 12/16/18 TIME: 08:45 Subjective Cardiology follow up note Sl DW/ Staff Patient is off telemetry now but while on tele yesterday no afib noted pt is STILL CONFUSED and intermittently agitated no report of any chest pain or pressure or palpitations but pt is a very poor historian PT WITH poor po intake per RN report Events noted. 12/13/18: Patient went into atrial fibrillation rapid ventricular response during hemodialysis . Patient has been transferred to telemetry and converted back to sinus rhythm remains in sinus rhythm s/p I/D 11/17 EGD 11.18.18 O: General: Elderly frail male in no acute distress HEENT: NC/AT. pupils are equal. round. NECK: NO JVD. no stridor. CV: RRR. systolic murmur; no gallop or rubs. PULM: no wheezing or rhonchi. GI: SOFT, NT, ND, no rebound or guarding neuro: sleeping Psych: confused rectal: deferred CXR 11/22: 1. Left lung interstitial opacities may reflect edema or pneumonia. Findings are new when compared to the prior examination. 2. Mild cardiomegaly and aortic atherosclerosis. 3. Left chest Perma-Cath with tip in the lower SVC. review of old chart shows ECHO done Oct 2018: Normal left ventricular systolic function. Normal left ventricular cavity size. Moderate concentric left ventricular hypertrophy. Ejection fraction is visually estimated at 65 %. Abnormal Diastolic Function. Mitral valve leaflets appear moderately thickened. Moderate mitral annular calcification. Trace mitral regurgitation. Aortic valve not well visualized. No hemodynamically significant aortic stenosis by doppler. Aortic sclerosis without significant stenosis. Aortic cusps appear mildly calcified. Mild to moderate aortic valve regurgitation. Estimated peak PA systolic pressure 40 mmHg. Tricuspid valve appears moderately thickened. There is mild tricuspid regurg Objective Vitals Vital Signs Date Temp Pulse Resp B/P (MAP) Pulse Ox O2 O2 Flow FiO2 Time Delivery Rate 12/16/18 99.0 80 18 148/66 99 Room Air 07:10 (93) Intake and Output 12/15/18 12/15/18 12/16/18 1515:00 23:00 07:00 OutputOutput Total 200 ml 500 ml BalanceBalance -200 ml -500 ml Results/Medications Result Diagram: 12/16/18 0700 12/16/18 0700 Results 24 hrs Laboratory Tests Test 12/15/18 12:17 12/16/18 07:00 12/16/18 08:26 Bedside Glucose 158 105 White Blood Count 9.4 # Red Blood Count 2.88 L Hemoglobin 7.8 L Hematocrit 24.4 L Mean Corpuscular Volume 84.7 Mean Corpuscular Hemoglobin 27.1 L Mean Corpuscular Hemoglobin Concent 32.0 Red Cell Distribution Width 16.6 H Platelet Count 203 Mean Platelet Volume 12.2 H Immature Granulocytes % 1.900 H Neutrophils % 65.7 Lymphocytes % 14.9 L Monocytes % 8.6 Eosinophils % 8.6 H Basophils % 0.3 Nucleated Red Blood Cells % 1.3 H Immature Granulocytes # 0.180 H Neutrophils # 6.2 Lymphocytes # 1.4 Monocytes # 0.8 Eosinophils # 0.8 H Basophils # 0.0 Nucleated Red Blood Cells # 0.1 H Sodium Level 136 Potassium Level 4.2 Chloride Level 99 Carbon Dioxide Level 31 Anion Gap 6 Blood Urea Nitrogen 32 H Creatinine 1.54 H Est Glomerular Filtrat Rate mL/min Glucose Level 98 Calcium Level 8.9 Phosphorus Level 3.3 Magnesium Level 2.1 Home Meds Reported Medications Sennosides* (Senna Lax*) 8.6 Mg Tablet, 1 TAB PO BID, TAB 11/16/18 Sevelamer Carbonate* (Renvela*) 0.8 Gm Powd.pack, 0.8 GM PO WITH MEALS, PACKET 11/16/18 Lansoprazole* (Lansoprazole*) 30 Mg Capsule.dr, 30 MG PO QAM, CAP 11/16/18 Hydralazine Hcl* (Hydralazine Hcl*) 25 Mg Tab, 25 MG PO Q8, #90 TAB 11/16/18 Ferrous Sulfate* (Ferrous Sulfate*) 325 Mg Tabec, 325 MG PO BID for anemia, TAB 11/16/18 Valproate Sodium (Valproic Acid) 250 Mg/5 Ml Solution, 250 MG PO Q8, ML 11/16/18 Insulin Aspart* (Novolog Insulin Pen*) 100 Unit/Ml Soln, 0 SC .SLIDING SCALE AC, EA IF BS 160-200=2 UNITS,201-250=4 UNITS,251-300=8 UNITS,301-350=12 UNITS;351-400=16 UNITS THEN CALL MD. 10/16/18 Ondansetron Hcl* (Zofran*) 4 Mg Tab, 4 MG GTB Q4H PRN for NAUSEA AND OR VOMITING, TAB 10/16/18 Linagliptin (TRADJENTA) 5 Mg Tablet, 5 MG GTB DAILY, TAB 10/16/18 Quetiapine Fumarate* (Seroquel*) 25 Mg Tablet, 25 MG GTB BID, #60 TAB 10/16/18 [Nephro-Roque] No Conflict Check, 0.8 MG GTB DAILY 10/16/18 Polyethylene Glycol* (Miralax*) 17 Gm Powd.pack, 17 GM GTB Q24H, #30 PACKET 10/16/18 Metoprolol Tartrate* (Lopressor*) 50 Mg Tab, 50 MG GTB DAILY, #60 TAB Q MON,WED,FRI,SUN,HOLD FOR SBP<110 OR VA<60 10/16/18 Metoprolol Tartrate* (Lopressor*) 50 Mg Tab, 50 MG GTB BID, #60 TAB QTUE,ANDREW,SAT,HOLD FOR SBP<110 OR VA<60 10/16/18 Linaclotide (LINZESS) 145 Mcg Capsule, 145 MCG GTB DAILY, #30 CAP 10/16/18 Ipratropium-Albuterol (Ipratropium-Albuterol) 0.5-3 Mg/3 Ml Ampul.neb, 3 ML INHALATION Q6, #30 VIAL FOR 14 DAYS,STOP DATE 10/17/18 10/16/18 Hydralazine Hcl* (Hydralazine Hcl*) 25 Mg Tab, 25 MG GTB DAILY, #60 TAB Q TUE,ANDREW,SAT,HOLD IF SBP<110 OR VA<60 10/16/18 Folic Acid* (Folic Acid*) 1 Mg Tablet, 1 MG GTB DAILY, TAB 10/16/18 Docusate Sodium* (Colace*) 100 Mg Capsule, 100 MG GTB DAILY, #30 CAP 10/16/18 Lorazepam* (Lorazepam*) 1 Mg Tablet, 1 MG GTB HS PRN for ANXIETY, #30 TAB Q TUE,ANDREW,SAT 10/16/18 Amlodipine Besylate* (Norvasc*) 5 Mg Tablet, 5 MG GTB BID, TAB TAKE Q TUE,ANDREW,SAT FOR HTN, HOLD FOR SBP<110 OR VA<60 10/16/18 Acetaminophen* (Acetaminophen*) 650 Mg Tablet, 650 MG GTB Q6H PRN for PAIN LEVEL 1-10, #30 TAB 10/16/18 Medications Current Medications IV Flush (NS 3 ml) 3 ml PER PROTOCOL IV ; Start 11/16/18 at 09:00 Ondansetron HCl (Zofran Inj) 4 mg Q6H PRN IV NAUSEA AND/OR VOMITING; Start 11/16/18 at 09:00 Acetaminophen (Tylenol Tab) 650 mg Q6H PRN PO PAIN LEVEL 1-3 OR FEVER Last administered on 12/15/18 21:42; Admin Dose 650 MG; Start 11/16/18 at 09:00 Docusate Sodium (Colace) 100 mg Q12H PRN PO CONSTIPATION; Start 11/16/18 at 09:00 Magnesium Hydroxide (Milk Of Mag) 30 ml DAILY PRN PO CONSTIPATION; Start 11/16/18 at 09:00 Folic Acid (Folic Acid) 1 mg DAILY GTB Last administered on 12/15/18 08:29; Admin Dose 1 MG; Start 11/16/18 at 09:00 Albuterol/ Ipratropium (Duoneb) 3 ml Q6 PRN HHN sob; Start 11/16/18 at 09:00 Linagliptin (Tradjenta) 5 mg DAILY GTB Last administered on 12/14/18 08:48; Admin Dose 5 MG; Start 11/16/18 at 09:00 Lorazepam (Ativan) 1 mg HS PRN GTB ANXIETY Last administered on 12/15/18 21:43; Admin Dose 1 MG; Start 11/16/18 at 09:00 Quetiapine Fumarate (Seroquel) 25 mg BID GTB Last administered on 12/15/18 21:42; Admin Dose 25 MG; Start 11/16/18 at 09:00 Senna (Senokot) 1 tab BID PO Last administered on 12/15/18 21:41; Admin Dose 1 TAB; Start 11/16/18 at 09:00 Valproate Sodium (Depakene Liquid Cup) 250 mg Q8 PO Last administered on 12/16 06:17; Admin Dose 250 MG; Start 11/16/18 at 14:00 Sodium Chloride (NS) -To prime the dialy... DIRECTED FOR HD PRN IV SBP<90; Start 11/16/18 at 15:00 Hydralazine HCl (Apresoline) 10 mg Q4H PRN IV ELEVATED BLOOD PRESSURE Last administered on 12/04/18 21:06; Admin Dose 10 MG; Start 11/17/18 at 10:30 Acetaminophen/ Hydrocodone Bitart ([place] (5/325)) 1 tab Q3H PRN PO MODERATE PAIN LEVEL 4-6 Last administered on 12/06/18 15:38; Admin Dose 1 TAB; Start 11/17/18 at 14:30 Albumin Human 50 ml @ 100 mls/hr WITH DIALYSIS PRN IV SBP<90 Last administered on 12/13/18 11:03; Admin Dose 100 MLS/HR; Start 11/18/18 at 14:30 Morphine Sulfate (morphine) 6 mg Q4H PRN PO SEVERE PAIN LEVEL 7-10 Last adm inistered on 12/13/18 21:31; Admin Dose 6 MG; Start 11/18/18 at 23:00 Docusate Sodium (Colace Liquid Cup) 100 mg DAILY GTB Last administered on 12/14/18 08:47; Admin Dose 100 MG; Start 11/19/18 at 09:30 Guaifenesin/ Dextromethorphan (Robitussin Dm Liquid Cup) 5 ml Q4H PRN PO cough Last administered on 12/07/18 23:55; Admin Dose 5 ML; Start 11/20/18 at 14:00 Multivit/Ca Carb/ B Cmplx/FA/Prenat (Kianna-Roque) 1 tab DAILY GTB Last administered on 12/15/18 08:29; Admin Dose 1 TAB; Start 11/24/18 at 09:00 Lansoprazole (Prevacid) 30 mg DAILY GTB Last administered on 12/15/18 08:31; Admin Dose 30 MG; Start 11/26/18 at 09:00 Acetaminophen (Tylenol Supp) 650 mg Q4H PRN [place] MILD PAIN(1-3) OR TEMP>38C Last administered on 11/26/18 08:32; Admin Dose 650 MG; Start 11/26/18 at 08:30 Ferrous Sulfate (Feosol Liquid Cup) 300 mg BID GTB Last administered on 12/15/18 21:42; Admin Dose 300 MG; Start 12/05/18 at 09:30 Epoetin Michael (Epogen (Esrd)) 4,000 units MoWeFr@17 SC Last administered on 12/15/18 16:43; Admin Dose 4,000 UNITS; Start 12/06/18 at 17:00 Voriconazole (Vfend) 200 mg BID PO Last administered on 12/15/18 21:43; Admin Dose 200 MG; Start 12/06/18 at 21:00 Hydralazine HCl (Apresoline) 50 mg Q8 PO Last administered on 12/16/18 06:20; Admin Dose 50 MG; Start 12/07/18 at 22:00 Sodium Chloride (NS) -To prime the dialy... DIRECTED FOR HD PRN IV HD; Start 12/07/18 at 17:30 Metoprolol Tartrate (Lopressor) 100 mg BID GTB Last administered on 12/15/18 21:42; Admin Dose 100 MG; Start 12/13/18 at 21:00 Aspirin (Halfprin) 81 mg DAILY PO Last administered on 12/15/18 08:29; Admin Dose 81 MG; Start 12/13/18 at 19:30 Assessment/Plan Hospital Course (Demo Recall) Proximal atrial fibrillation rapid ventricular response: Currently back in sinus rhythm fungemia Right hand hematoma: Status post IND now Renal failure on dialysis Hypertension Dementia Anemia Possible GI bleed: Status post EGD AI Recommendations: transfusion with HD prn Patient is not a candidate for full anticoagulation due to the fall risk as well as anemia cont beta-farrah Dialysis as per renal team Neuro workup and treatment as per internal medicine Antibiotic as per ID and internal medicine asa for now and monitor Thank you for his referral. We will continue to follow along with you as needed basis CHRISTEN ESCOBEDO MD [facility] CHRISTEN ESCOBEDO MD Dec 16, 2018 08:47
[2018-12-16] MEDS: VORICONAZOLE 200 MG TAB PO SCH ×2 (08:59→20:37)
[2018-12-16] MEDS: DOCUSATE SODIUM 10 MG/ML (10ML CUP) GTB SCH (08:59)
[2018-12-16] MEDS: LANSOPRAZOLE 30 MG CAP GTB SCH (08:59)
[2018-12-16] MEDS: MULTIVIT/CA CARB/B CMPLX/FA TAB GTB SCH (08:59)
[2018-12-16] MEDS: FERROUS SULFATE 60 MG/ML 5ML CUP GTB SCH ×2 (08:59→20:37)
[2018-12-16] MEDS: LINAGLIPTIN 5 MG TABLET GTB SCH (09:00)
[2018-12-16] MEDS: SENNA TAB PO SCH ×2 (09:00→20:37)
[2018-12-16] MEDS: METOPROLOL 50 MG TAB GTB SCH ×2 (09:00→20:37)
[2018-12-16] MEDS: ASPIRIN (EC) 81 MG TAB PO SCH (09:00)
[2018-12-16] MEDS: FOLIC ACID 1 MG TAB GTB SCH (09:00)
[2018-12-16] MEDS: QUETIAPINE 25 MG TAB GTB SCH ×2 (09:02→20:37)
--- NOTE | 2018-12-16 13:57 | CONS ---
Assessment/Plan Assessment/Plan Hospital Course (Demo Recall) No events, sleeping, no fevers, nad Microbiology: Blood culture repeated on November 29 grew Dominique glabrata blood cultures since December 01 that were drawn from permacath negative blood culture on December 03 negative, urine culture growing C glabrata Antimicrobials: Vfend Indwelling: Left chest permacath, PEG Physical examination: Chronically ill-appearing elderly woman who is awake, c onfused, in no distress. Head atraumatic normocephalic. Neck is supple. Chest rise symmetrical breath sounds diminished bases. Heart: S1-S2. Abdomen soft bowel sounds present, right upper extremity Armani wrapped Assessment: 1. S/p Fungemia secondary to urinary tract infection 2. S/p pneumonia, possibly aspiration 3. Right hand hematoma, status post I&D 11/17/18 4. Status post VRE bacteremia/new Pcath 5. End-stage renal disease, hemodialysis dependent 6. Dementia 7. Failure to thrive 8. Diabetes 9. Anemia 10. S/p sepsis 11. P Afib Plan: Remains unchanged, dc Vfend after evening dose Consultation Date/Type/Reason Admit Date/Time Nov 16, 2018 at 05:51 Initial Consult Date 11/16/18 Type of Consult id Requesting Provider: DYLON WALLS MD Date/Time of Note DATE: 12/16/18 TIME: 13:56 Exam/Review of Systems Exam Vitals Vital Signs Date Temp Pulse Resp B/P (MAP) Pulse Ox O2 O2 Flow FiO2 Time Delivery Rate 12/16/18 99.0 80 18 148/66 99 Room Air 07:10 (93) Intake and Output 12/15/18 12/15/18 12/16/18 1515:00 23:00 07:00 OutputOutput Total 200 ml 500 ml BalanceBalance -200 ml -500 ml Results Result Diagram: 12/16/18 0700 12/16/18 0700 Results 24hrs Laboratory Tests Test 12/16/18 07:00 12/16/18 08:26 White Blood Count 9.4 # Red Blood Count 2.88 L Hemoglobin 7.8 L Hematocrit 24.4 L Mean Corpuscular Volume 84.7 Mean Corpuscular Hemoglobin 27.1 L Mean Corpuscular Hemoglobin Concent 32.0 Red Cell Distribution Width 16.6 H Platelet Count 203 Mean Platelet Volume 12.2 H Immature Granulocytes % 1.900 H Neutrophils % 65.7 Lymphocytes % 14.9 L Monocytes % 8.6 Eosinophils % 8.6 H Basophils % 0.3 Nucleated Red Blood Cells % 1.3 H Immature Granulocytes # 0.180 H Neutrophils # 6.2 Lymphocytes # 1.4 Monocytes # 0.8 Eosinophils # 0.8 H Basophils # 0.0 Nucleated Red Blood Cells # 0.1 H Sodium Level 136 Potassium Level 4.2 Chloride Level 99 Carbon Dioxide Level 31 Anion Gap 6 Blood Urea Nitrogen 32 H Creatinine 1.54 H Est Glomerular Filtrat Rate mL/min Glucose Level 98 Calcium Level 8.9 Phosphorus Level 3.3 Magnesium Level 2.1 Bedside Glucose 105 Medications Medication Current Medications IV Flush (NS 3 ml) 3 ml PER PROTOCOL IV ; Start 11/16/18 at 09:00 Ondansetron HCl (Zofran Inj) 4 mg Q6H PRN IV NAUSEA AND/OR VOMITING; Start 11/16/18 at 09:00 Acetaminophen (Tylenol Tab) 650 mg Q6H PRN PO PAIN LEVEL 1-3 OR FEVER Last administered on 12/15/18 21:42; Admin Dose 650 MG; Start 11/16/18 at 09:00 Docusate Sodium (Colace) 100 mg Q12H PRN PO CONSTIPATION; Start 11/16/18 at 09:00 Magnesium Hydroxide (Milk Of Mag) 30 ml DAILY PRN PO CONSTIPATION; Start 11/16/18 at 09:00 Folic Acid (Folic Acid) 1 mg DAILY GTB Last administered on 12/16/18 09:00; Admin Dose 1 MG; Start 11/16/18 at 09:00 Albuterol/ Ipratropium (Duoneb) 3 ml Q6 PRN HHN sob; Start 11/16/18 at 09:00 Linagliptin (Tradjenta) 5 mg DAILY GTB Last administered on 12/16/18 09:00; Admin Dose 5 MG; Start 11/16/18 at 09:00 Lorazepam (Ativan) 1 mg HS PRN GTB ANXIETY Last administered on 12/15/18at 21:43; Admin Dose 1 MG; Start 11/16/18 at 09:00 Quetiapine Fumarate (Seroquel) 25 mg BID GTB Last administered on 12/16/18 09:02; Admin Dose 25 MG; Start 11/16/18 at 09:00 Senna (Senokot) 1 tab BID PO Last administered on 12/16/18 09:00; Admin Dose 1 TAB; Start 11/16/18 at 09:00 Valproate Sodium (Depakene Liquid Cup) 250 mg Q8 PO Last administered on 12/16/18 06:17; Admin Dose 250 MG; Start 11/16/18 at 14:00 Sodium Chloride (NS) -To prime the dialy... DIRECTED FOR HD PRN IV SBP<90; Start 11/16/18 at 15:00 Hydralazine HCl (Apresoline) 10 mg Q4H PRN IV ELEVATED BLOOD PRESSURE Last administered on 12/04/18 21:06; Admin Dose 10 MG; Start 11/17/18 at 10:30 Acetaminophen/ Hydrocodone Bitart ([place] (5/325)) 1 tab Q3H PRN PO MODERATE PAIN LEVEL 4-6 Last administered on 12/06/18 15:38; Admin Dose 1 TAB; Start 11/17/18 at 14:30 Albumin Human 50 ml @ 100 mls/hr WITH DIALYSIS PRN IV SBP<90 Last administered on 12/13/18 11:03; Admin Dose 100 MLS/HR; Start 11/18/18 at 14:30 Morphine Sulfate (morphine) 6 mg Q4H PRN PO SEVERE PAIN LEVEL 7-10 Last administered on 12/13/18 21:31; Admin Dose 6 MG; Start 11/18/18 at 23:00 Docusate Sodium (Colace Liquid Cup) 100 mg DAILY GTB Last administered on 12/16/18 08:59; Admin Dose 100 MG; Start 11/19/18 at 09:30 Guaifenesin/ Dextromethorphan (Robitussin Dm Liquid Cup) 5 ml Q4H PRN PO cough Last administered on 12/07/18 23:55; Admin Dose 5 ML; Start 11/20/18 at 14:00 Multivit/Ca Carb/ B Cmplx/FA/Prenat (Kianna-Roque) 1 tab DAILY GTB Last administered on 12/16/18 08:59; Admin Dose 1 TAB; Start 11/24/18 at 09:00 Lansoprazole (Prevacid) 30 mg DAILY GTB Last administered on 12/16/18 08:59; Admin Dose 30 MG; Start 11/26/18 at 09:00 Acetaminophen (Tylenol Supp) 650 mg Q4H PRN [place] MILD PAIN(1-3) OR TEMP>38C Last administered on 11/26/18 08:32; Admin Dose 650 MG; Start 11/26/18 at 08:30 Ferrous Sulfate (Feosol Liquid Cup) 300 mg BID GTB Last administered on 12/16/18 08:59; Admin Dose 300 MG; Start 12/05/18 at 09:30 Epoetin Michael (Epogen (Esrd)) 4,000 units MoWeFr@17 SC Last administered on 12/15/18 16:43; Admin Dose 4,000 UNITS; Start 12/06/18 at 17:00 Voriconazole (Vfend) 200 mg BID PO Last administered on 12/16/18 08:59; Admin Dose 200 MG; Start 12/06/18 at 21:00 Hydralazine HCl (Apresoline) 50 mg Q8 PO Last administered on 12/16/18 06:20; Admin Dose 50 MG; Start 12/07/18 at 22:00 Sodium Chloride (NS) -To prime the dialy... DIRECTED FOR HD PRN IV HD; Start 12/07/18 at 17:30 Metoprolol Tartrate (Lopressor) 100 mg BID GTB Last administered on 12/16/18 09:00; Admin Dose 100 MG; Start 12/13/18 at 21:00 Aspirin (Halfprin) 81 mg DAILY PO Last administered on 12/16/18 09:00; Admin Dose 81 MG; Start 12/13/18 at 19:30 Miscellaneous Information (*Order Clarification Bulletin) MEDICATION REQUIRES CLARIFICATI... Q8H XX ; Start 12/16/18 at 09:30 PHYLICIA HOLCOMB NP Dec 16, 2018 13:57
[2018-12-16 14:09] VITALS: BP 115/56; PULSE 67; RESP 18
--- NOTE | 2018-12-16 15:26 | PN ---
Date/Time of Note Date/Time of Note DATE: 12/16/18 TIME: 15:23 Assessment/Plan VTE Prophylaxis Risk score (from Ns)>0 risk: 9 SCD applied (from Ns): Yes Pharmacological prophylaxis: NA/contraindicated Pharm contraindication: low risk/ambulating Lines/Catheters IV Catheter Type (from [facility]): [facility] Urinary Cath still in place: No Assessment/Plan Hospital Course 83 y/o with 1. Right hand swelling, likely secondary to hematoma, questionable fall. with compression s/p I and D on 11/17/18 2. Gastrointestinal bleed with melena. 3. Hypertension. 4. Diabetes. 5. End-stage renal disease on hemodialysis. 6. History of falls. 7. Vascular dementia.with AMS 8. History of sepsis with VRE. 9. Dysphagia, status post G-tube. 10. History of hip fracture. 11. Thrombocytopenia. 12. Atherosclerotic heart disease. 13 FEVERS now with yeast bacterimia due to UTI Plan - HD tmw - Monitor fevers - Hold BP meds before hd - renally dose all meds Result Diagram: 12/16/18 0700 12/16/18 0700 Results 24hrs Laboratory Tests Test 12/16/18 07:00 12/16/18 08:26 White Blood Count 9.4 # Red Blood Count 2.88 L Hemoglobin 7.8 L Hematocrit 24.4 L Mean Corpuscular Volume 84.7 Mean Corpuscular Hemoglobin 27.1 L Mean Corpuscular Hemoglobin Concent 32.0 Red Cell Distribution Width 16.6 H Platelet Count 203 Mean Platelet Volume 12.2 H Immature Granulocytes % 1.900 H Neutrophils % 65.7 Lymphocytes % 14.9 L Monocytes % 8.6 Eosinophils % 8.6 H Basophils % 0.3 Nucleated Red Blood Cells % 1.3 H Immature Granulocytes # 0.180 H Neutrophils # 6.2 Lymphocytes # 1.4 Monocytes # 0.8 Eosinophils # 0.8 H Basophils # 0.0 Nucleated Red Blood Cells # 0.1 H Sodium Level 136 Potassium Level 4.2 Chloride Level 99 Carbon Dioxide Level 31 Anion Gap 6 Blood Urea Nitrogen 32 H Creatinine 1.54 H Est Glomerular Filtrat Rate mL/min Glucose Level 98 Calcium Level 8.9 Phosphorus Level 3.3 Magnesium Level 2.1 Bedside Glucose 105 Subjective 24 Hr Interval Summary Free Text/Dictation no new events Exam/Review of Systems Exam Vitals Vital Signs Date Temp Pulse Resp B/P (MAP) Pulse Ox O2 O2 Flow FiO2 Time Delivery Rate 12/16/18 98.8 67 18 115/56 94 Room Air 14:09 (75) Intake and Output 12/15/18 12/15/18 12/16/18 1414:59 22:59 06:59 OutputOutput Total 200 ml 500 ml BalanceBalance -200 ml -500 ml Exam thargic rt permcath Respiratory: clear to auscultation Cardiovascular: regular rate and rhythm Gastrointestinal: soft, nl liver, spleen Results Results 24hrs Laboratory Tests Test 12/16/18 07:00 12/16/18 08:26 White Blood Count 9.4 # Red Blood Count 2.88 L Hemoglobin 7.8 L Hematocrit 24.4 L Mean Corpuscular Volume 84.7 Mean Corpuscular Hemoglobin 27.1 L Mean Corpuscular Hemoglobin Concent 32.0 Red Cell Distribution Width 16.6 H Platelet Count 203 Mean Platelet Volume 12.2 H Immature Granulocytes % 1.900 H Neutrophils % 65.7 Lymphocytes % 14.9 L Monocytes % 8.6 Eosinophils % 8.6 H Basophils % 0.3 Nucleated Red Blood Cells % 1.3 H Immature Granulocytes # 0.180 H Neutrophils # 6.2 Lymphocytes # 1.4 Monocytes # 0.8 Eosinophils # 0.8 H Basophils # 0.0 Nucleated Red Blood Cells # 0.1 H Sodium Level 136 Potassium Level 4.2 Chloride Level 99 Carbon Dioxide Level 31 Anion Gap 6 Blood Urea Nitrogen 32 H Creatinine 1.54 H Est Glomerular Filtrat Rate mL/min Glucose Level 98 Calcium Level 8.9 Phosphorus Level 3.3 Magnesium Level 2.1 Bedside Glucose 105 Medications Medication Current Medications IV Flush (NS 3 ml) 3 ml PER PROTOCOL IV ; Start 11/16/18 at 09:00 Ondansetron HCl (Zofran Inj) 4 mg Q6H PRN IV NAUSEA AND/OR VOMITING; Start 11/16/18 at 09:00 Acetaminophen (Tylenol Tab) 650 mg Q6H PRN PO PAIN LEVEL 1-3 OR FEVER Last administered on 12/15/18at 21:42; Admin Dose 650 MG; Start 11/16/18 at 09:00 Docusate Sodium (Colace) 100 mg Q12H PRN PO CONSTIPATION; Start 11/16/18 at 09:00 Magnesium Hydroxide (Milk Of Mag) 30 ml DAILY PRN PO CONSTIPATION; Start 11/16/18 at 09:00 Folic Acid (Folic Acid) 1 mg DAILY GTB Last administered on 12/16/18 09:00; Admin Dose 1 MG; Start 11/16/18 at 09:00 Albuterol/ Ipratropium (Duoneb) 3 ml Q6 PRN HHN sob; Start 11/16/18 at 09:00 Linagliptin (Tradjenta) 5 mg DAILY GTB Last administered on 12/16/18 09:00; Admin Dose 5 MG; Start 11/16/18 at 09:00 Lorazepam (Ativan) 1 mg HS PRN GTB ANXIETY Last administered on 12/15/18 21:43; Admin Dose 1 MG; Start 11/16/18 at 09:00 Quetiapine Fumarate (Seroquel) 25 mg BID GTB Last administered on 12/16/18 09:02; Admin Dose 25 MG; Start 11/16/18 at 09:00 Senna (Senokot) 1 tab BID PO Last administered on 12/16/18 09:00; Admin Dose 1 TAB; Start 11/16/18 at 09:00 Valproate Sodium (Depakene Liquid Cup) 250 mg Q8 PO Last administered on 12/16/18 14:25; Admin Dose 250 MG; Start 11/16/18 at 14:00 Sodium Chloride (NS) -To prime the dialy... DIRECTED FOR HD PRN IV SBP<90; Start 11/16/18 at 15:00 Hydralazine HCl (Apresoline) 10 mg Q4H PRN IV ELEVATED BLOOD PRESSURE Last administered on 12/04/18 21:06; Admin Dose 10 MG; Start 11/17/18 at 10:30 Acetaminophen/ Hydrocodone Bitart ([place] (5/325)) 1 tab Q3H PRN PO MODERATE PA IN LEVEL 4-6 Last administered on 12/06/18 15:38; Admin Dose 1 TAB; Start 11/17/18 at 14:30 Albumin Human 50 ml @ 100 mls/hr WITH DIALYSIS PRN IV SBP<90 Last administered on 12/13/18 11:03; Admin Dose 100 MLS/HR; Start 11/18/18 at 14:30 Morphine Sulfate (morphine) 6 mg Q4H PRN PO SEVERE PAIN LEVEL 7-10 Last administered on 12/13/18 21:31; Admin Dose 6 MG; Start 11/18/18 at 23:00 Docusate Sodium (Colace Liquid Cup) 100 mg DAILY GTB Last administered on 12/16/18 08:59; Admin Dose 100 MG; Start 11/19/18 at 09:30 Guaifenesin/ Dextromethorphan (Robitussin Dm Liquid Cup) 5 ml Q4H PRN PO cough Last administered on 12/07/18 23:55; Admin Dose 5 ML; Start 11/20/18 at 14:00 Multivit/Ca Carb/ B Cmplx/FA/Prenat (Kianna-Roque) 1 tab DAILY GTB Last administered on 12/16/18 08:59; Admin Dose 1 TAB; Start 11/24/18 at 09:00 Lansoprazole (Prevacid) 30 mg DAILY GTB Last administered on 12/16/18 08:59; Admin Dose 30 MG; Start 11/26/18 at 09:00 Acetaminophen (Tylenol Supp) 650 mg Q4H PRN [place] MILD PAIN(1-3) OR TEMP>38C Last administered on 11/26/18 08:32; Admin Dose 650 MG; Start 11/26/18 at 08:30 Ferrous Sulfate (Feosol Liquid Cup) 300 mg BID GTB Last administered on 12/16/18 08:59; Admin Dose 300 MG; Start 12/05/18 at 09:30 Epoetin Michael (Epogen (Esrd)) 4,000 units MoWeFr@17 SC Last administered on 12/15/18 16:43; Admin Dose 4,000 UNITS; Start 12/06/18 at 17:00 Voriconazole (Vfend) 200 mg BID PO Last administered on 12/16/18 08:59; Admin Dose 200 MG; Start 12/06/18 at 21:00; Stop 12/16/18 at 23:30 Hydralazine HCl (Apresoline) 50 mg Q8 PO Last administered on 12/16/18 14:26; Admin Dose 50 MG; Start 12/07/18 at 22:00 Sodium Chloride (NS) -To prime the dialy... DIRECTED FOR HD PRN IV HD; Start 12/07/18 at 17:30 Metoprolol Tartrate (Lopressor) 100 mg BID GTB Last administered on 12/16/18at 09:00; Admin Dose 100 MG; Start 12/13/18 at 21:00 Aspirin (Halfprin) 81 mg DAILY PO Last administered on 12/16/18at 09:00; Admin Dose 81 MG; Start 12/13/18 at 19:30 Miscellaneous Information (*Order Clarification Bulletin) MEDICATION REQUIRES CLARIFICATI... Q8H XX ; Start 12/16/18 at 09:30 JOSE RAUL ANDREWS MD Dec 16, 2018 15:26
--- NOTE | 2018-12-16 16:03 | DS ---
DATE OF ADMISSION: 11/16/2018 DATE OF DISCHARGE: 12/16/2018 REASON FOR ADMISSION: Right hand hematoma. HOSPITAL COURSE: The patient is an 83-year-old [place]ian female, very frail, with history of end-stag e renal disease on dialysis 3 times a week, diastolic dysfunction heart failure, diabetes mellitus ty pe 2 controlled, hypertension, vascular dementia, anxiety disorder, very anxious with a risk of fall, also dysphagia with G-tube feeding. She has been hospitalized multiple times previously for hip fra cture, also treated recently for VRE bacteremia due to line sepsis. At the assisted facility, apple hernandez was noted to have swelling and hematoma of the hand then she was brought into the hospital. The alvaro collins underwent I and D of the wound by Dr. Juan Miranda. During her stay, she received multiple blood products, also treated for pneumonia with broad spectrum antibiotics and was found to have fungemia. She was placed on caspofungin and then Vfend with overall good results. The patient has been stable . She finished a course of oral antibiotics for fungemia and UTI, Dominique glabrata. Now, she can be discharged back to the care home facility. She does have anemia, so she will need Epogen. DISCHARGE MEDICATIONS: She will be discharged with the following medications: 1. Lopressor 100 mg b.i.d. as she had episode of AFib with RVR briefly in telemetry unit. 2. Aspirin 81 daily. 3. Hydralazine 50 q.8 hours. 4. Vfend 200 b.i.d. Today is the last dose, so we can discontinue it. 5. Epogen every Thursday, Thursday, Thursday during dialysis. 6. Ferrous sulfate 300 t.i.d. 7. Prevacid 30 mg daily. 8. Tylenol p.r.n. 9. Kianna-Roque 1 tab daily. 10. Robitussin p.r.n. 11. Colace 100 daily. 12. Folic acid 1 mg daily. 13. DuoNeb p.r.n. 14. Tradjenta 5 mg daily. 15. Seroquel 25 b.i.d. 16. Senna 1 tab b.i.d. FINAL DIAGNOSES: 1. Right hand hematoma, status post incision and drainage. 2. Aspiration pneumonia. 3. Advanced vascular dementia. 4. Fungemia. 5. Urinary tract infection Dominique glabrata. 6. End-stage renal disease. 7. Anemia, need to rule out gastrointestinal bleed, status post EGD. 8. Gastritis. 9. Dementia with behavioral disturbances. 10. Intermittent psychosis. 11. Hypertension. 12. Dysphagia on G-tube feeding. 13. Diabetes mellitus, controlled, off medication. 14. Recent bacteremia and line sepsis. CONDITION ON DISCHARGE: Fair. VITAL SIGNS: The patient is afebrile, temperature 98.8, pulse 67, respirations 18, blood pressure 11 5/56, saturation 94%. DIET: Via G-tube. Bolus feedings, she gets 4 to 5 a day. Continue dialysis with Dr. Juliocesar Stringer 3 times a week. With Epogen, monitor H and H as an outpatien t and monitor closely. The patient is to be placed on close monitoring due to danger to self and rec urrent fall. Overall, long-term prognosis is guarded. The patient is full code, but we will definit dennise advise comfort measures as the patient has been having quite poor quality of life in the past few months to years and has been declining unfortunately. We will follow. Dictated By: DYLON HULL/MADAN Conf#: [id number] DID#: [id number] CC: CHRISS WELCH MD;*EndCC*
[2018-12-16 19:58] VITALS: BP 134/62; PULSE 75; RESP 20
[2018-12-17] VITALS (18 sets, daily range): BP systolic 120–158; BP diastolic 54–92; PULSE 64–81; RESP 18–19
[2018-12-17] MEDS: VALPROIC ACID LIQUID CUP 250 MG/5 ML CUP PO SCH ×3 (06:29→22:00)
[2018-12-17] MEDS: LINAGLIPTIN 5 MG TABLET GTB SCH ×2 (09:00→13:53)
[2018-12-17] MEDS ORDERED: LORAZEPAM 1 MG TAB GTB PRN (09:00)
[2018-12-17] MEDS ORDERED: ALBUTEROL/IPRATROPIUM (NEB) 3 ML AMP HHN PRN (09:00)
--- NOTE | 2018-12-17 10:19 | CONS ---
Assessment/Plan Assessment/Plan Hospital Course (Demo Recall) 1. End-stage renal disease on hemodialysis. 2. Gastrointestinal bleed with melena. 3. Hypertension. 4. Diabetes. 5. Right hand swelling, s/p I and D on 11/17/18 6. History of falls. 7. Vascular dementia. 8. History of sepsis with VRE. 9. Dysphagia, status post G-tube. 10. History of hip fracture. 11. Thrombocytopenia. 12. Atherosclerotic heart disease. 13. Pneumonia left side 14. Anemia 15. Fungemia. Assessment/Plan (Daily) - Hd today - cw with permacath -avoid nephrotoxic drugs -HD MWFr -c/w epogen - Aspiration precautions Consultation Date/Type/Reason Admit Date/Time Nov 16, 2018 at 05:51 Initial Consult Date 11/16/18 Type of Consult nephrology Reason for Consultation Dr Stringer Requesting Provider: DYLON WALLS MD Date/Time of Note DATE: 12/17/18 TIME: 10:18 24 HR Interval Summary Constitutional: disoriented Exam/Review of Systems Exam Vitals Vital Signs Date Temp Pulse Resp B/P (MAP) Pulse Ox O2 O2 Flow FiO2 Time Delivery Rate 12/17/18 78 124/55 95 Nasal 09:52 (78) Cannula 12/17/18 3.0 05:09 12/17/18 20 05:03 12/17/18 99.4 02:00 Intake and Output 12/16/18 12/16/18 12/17/18 1515:00 23:00 07:00 IntakeIntake Total 60 ml BalanceBalance 60 ml Exam left chest permcath Constitutional: frail Psych: confusion Eyes: nl conjunctiva Neck: supple Respiratory: diminished breath sounds Cardiovascular: regular rate and rhythm Gastrointestinal: soft, other (GT) Results Result Diagram: 12/16/18 0700 12/16/18 0700 Medications Medication Current Medications IV Flush (NS 3 ml) 3 ml PER PROTOCOL IV ; Start 11/16/18 at 09:00 Ondansetron HCl (Zofran Inj) 4 mg Q6H PRN IV NAUSEA AND/OR VOMITING; Start 11/16/18 at 09:00 Acetaminophen (Tylenol Tab) 650 mg Q6H PRN PO PAIN LEVEL 1-3 OR FEVER Last adm inistered on 12/15/18at 21:42; Admin Dose 650 MG; Start 11/16/18 at 09:00 Docusate Sodium (Colace) 100 mg Q12H PRN PO CONSTIPATION; Start 11/16/18 at 09:00 Magnesium Hydroxide (Milk Of Mag) 30 ml DAILY PRN PO CONSTIPATION; Start 11/16/18 at 09:00 Folic Acid (Folic Acid) 1 mg DAILY GTB Last administered on 12/16/18 09:00; Admin Dose 1 MG; Start 11/16/18 at 09:00 Albuterol/ Ipratropium (Duoneb) 3 ml Q6 PRN HHN sob Last administered on 12/17/18 05:03; Admin Dose 3 ML; Start 11/16/18 at 09:00 Linagliptin (Tradjenta) 5 mg DAILY GTB Last administered on 12/16/18 09:00; Admin Dose 5 MG; Start 11/16/18 at 09:00 Lorazepam (Ativan) 1 mg HS PRN GTB ANXIETY Last administered on 12/15/18 21:43; Admin Dose 1 MG; Start 11/16/18 at 09:00 Quetiapine Fumarate (Seroquel) 25 mg BID GTB Last administered on 12/16/18 20:37; Admin Dose 25 MG; Start 11/16/18 at 09:00 Senna (Senokot) 1 tab BID PO Last administered on 12/16/18 20:37; Admin Dose 1 TAB; Start 11/16/18 at 09:00 Valproate Sodium (Depakene Liquid Cup) 250 mg Q8 PO Last administered on 12/17/18 06:29; Admin Dose 250 MG; Start 11/16/18 at 14:00 Sodium Chloride (NS) -To prime the dialy... DIRECTED FOR HD PRN IV SBP<90; Start 11/16/18 at 15:00 Hydralazine HCl (Apresoline) 10 mg Q4H PRN IV ELEVATED BLOOD PRESSURE Last administered on 12/04/18 21:06; Admin Dose 10 MG; Start 11/17/18 at 10:30 Acetaminophen/ Hydrocodone Bitart ([place] (5/325)) 1 tab Q3H PRN PO MODERATE PAIN LEVEL 4-6 Last administered on 12/06/18 15:38; Admin Dose 1 TAB; Start at 14:30 Albumin Human 50 ml @ 100 mls/hr WITH DIALYSIS PRN IV SBP<90 Last administered on 12/13/18 11:03; Admin Dose 100 MLS/HR; Start 11/18/18 at 14:30 Morphine Sulfate (morphine) 6 mg Q4H PRN PO SEVERE PAIN LEVEL 7-10 Last administered on 12/13/18 21:31; Admin Dose 6 MG; Start 11/18/18 at 23:00 Docusate Sodium (Colace Liquid Cup) 100 mg DAILY GTB Last administered on 12/16/18 08:59; Admin Dose 100 MG; Start 11/19/18 at 09:30 Guaifenesin/ Dextromethorphan (Robitussin Dm Liquid Cup) 5 ml Q4H PRN PO cough Last administered on 12/07/18 23:55; Admin Dose 5 ML; Start 11/20/18 at 14:00 Multivit/Ca Carb/ B Cmplx/FA/Prenat (Kianna-Roque) 1 tab DAILY GTB Last administered on 12/16/18 08:59; Admin Dose 1 TAB; Start 11/24/18 at 09:00 Lansoprazole (Prevacid) 30 mg DAILY GTB Last administered on 12/16/18 08:59; Admin Dose 30 MG; Start 11/26/18 at 09:00 Acetaminophen (Tylenol Supp) 650 mg Q4H PRN [place] MILD PAIN(1-3) OR TEMP>38C Last administered on 11/26/18 08:32; Admin Dose 650 MG; Start 11/26/18 at 08:30 Ferrous Sulfate (Feosol Liquid Cup) 300 mg BID GTB Last administered on 12/16/18 at 20:37; Admin Dose 300 MG; Start 12/05/18 at 09:30 Epoetin Michael (Epogen (Esrd)) 4,000 units MoWeFr@17 SC Last administered on 12/15/18 16:43; Admin Dose 4,000 UNITS; Start 12/06/18 at 17:00 Hydralazine HCl (Apresoline) 50 mg Q8 PO Last administered on 12/17/18 06:30; Admin Dose 50 MG; Start 12/07/18 at 22:00 Sodium Chloride (NS) -To prime the dialy... DIRECTED FOR HD PRN IV HD; Start 12/07/18 at 17:30 Metoprolol Tartrate (Lopressor) 100 mg BID GTB Last administered on 12/16/18at 20:37; Admin Dose 100 MG; Start 12/13/18 at 21:00 Aspirin (Halfprin) 81 mg DAILY PO Last administered on 12/16/18at 09:00; Admin Dose 81 MG; Start 12/13/18 at 19:30 Miscellaneous Information (*Order Clarification Bulletin) MEDICATION REQUIRES CLARIFICATI... Q8H XX ; Start 12/16/18 at 09:30 FLAVIO CLAYTON Dec 17, 2018 10:19
--- NOTE | 2018-12-17 11:15 | CONS ---
Consult Date/Type/Reason Admit Date/Time Nov 16, 2018 at 05:51 Initial Consult Date 11/16/18 Type of Consultation: cv Requesting Provider: DYLON WALLS MD Date/Time of Note DATE: 12/17/18 TIME: 11:14 Subjective Cardiology follow up note Sl DW/ Staff Patient is off telemetry now b pt is still confused and intermittently agitated no report of any chest pain or pressure or palpitations but pt is a very poor historian Pt on HD now Events noted. 12/13/18: Patient went into atrial fibrillation rapid ventricular response during hemodialysis . Patient has been transferred to telemetry and converted back to sinus rhythm remains in sinus rhythm s/p I/D 11/17 EGD 11.18.18 O: General: Elderly frail male in no acute distress HEENT: NC/AT. pupils are equal. round. NECK: NO JVD. no stridor. CV: RRR. systolic murmur; no gallop or rubs. PULM: no wheezing or rhonchi. GI: SOFT, NT, ND, no rebound or guarding neuro: awake. Psych: confused but calm now rectal: deferred CXR 11/22: 1. Left lung interstitial opacities may reflect edema or pneumonia. Findings are new when compared to the prior examination. 2. Mild cardiomegaly and aortic atherosclerosis. 3. Left chest Perma-Cath with tip in the lower SVC. review of old chart shows ECHO done Oct 2018: Normal left ventricular systolic function. Normal left ventricular cavity size. Moderate concentric left ventricular hypertrophy. Ejection fraction is visually estimated at 65 %. Abnormal Diastolic Function. Mitral valve leaflets appear moderately thickened. Moderate mitral annular calcification. Trace mitral regurgitation. Aortic valve not well visualized. No hemodynamically significant aortic stenosis by doppler. Aortic sclerosis without significant stenosis. Aortic cusps appear mildly calcified. Mild to moderate aortic valve regurgitation. Estimated peak PA systolic pressure 40 mmHg. Tricuspid valve appears moderately thickened. There is mild tricuspid regurg Objective Vitals Vital Signs Date Temp Pulse Resp B/P (MAP) Pulse Ox O2 O2 Flow FiO2 Time Delivery Rate 12/17/18 80 10:45 12/17/18 124/55 95 Nasal 09:52 (78) Cannula 12/17/18 3.0 05:09 12/17/18 20 05:03 12/17/18 99.4 02:00 Intake and Output 12/16/18 12/16/18 12/17/18 1515:00 23:00 07:00 IntakeIntake Total 60 ml BalanceBalance 60 ml Results/Medications Result Diagram: 12/16/18 0700 12/16/18 0700 Home Meds Reported Medications Sennosides* (Senna Lax*) 8.6 Mg Tablet, 1 TAB PO BID, TAB 11/16/18 Sevelamer Carbonate* (Renvela*) 0.8 Gm Powd.pack, 0.8 GM PO WITH MEALS, PACKET 11/16/18 Lansoprazole* (Lansoprazole*) 30 Mg Capsule.dr, 30 MG PO QAM, CAP 11/16/18 Hydralazine Hcl* (Hydralazine Hcl*) 25 Mg Tab, 25 MG PO Q8, #90 TAB 11/16/18 Ferrous Sulfate* (Ferrous Sulfate*) 325 Mg Tabec, 325 MG PO BID for anemia, TAB 11/16/18 Valproate Sodium (Valproic Acid) 250 Mg/5 Ml Solution, 250 MG PO Q8, ML 11/16/18 Insulin Aspart* (Novolog Insulin Pen*) 100 Unit/Ml Soln, 0 SC .SLIDING SCALE AC, EA IF BS 160-200=2 UNITS,201-250=4 UNITS,251-300=8 UNITS,301-350=12 UNITS;351-400=16 UNITS THEN CALL MD. 10/16/18 Ondansetron Hcl* (Zofran*) 4 Mg Tab, 4 MG GTB Q4H PRN for NAUSEA AND OR VOMITING, TAB 10/16/18 Linagliptin (TRADJENTA) 5 Mg Tablet, 5 MG GTB DAILY, TAB 10/16/18 Quetiapine Fumarate* (Seroquel*) 25 Mg Tablet, 25 MG GTB BID, #60 TAB 10/16/18 [Nephro-Roque] No Conflict Check, 0.8 MG GTB DAILY 10/16/18 Polyethylene Glycol* (Miralax*) 17 Gm Powd.pack, 17 GM GTB Q24H, #30 PACKET 10/16/18 Metoprolol Tartrate* (Lopressor*) 50 Mg Tab, 50 MG GTB DAILY, #60 TAB Q MON,WED,FRI,SUN,HOLD FOR SBP<110 OR OK<60 10/16/18 Metoprolol Tartrate* (Lopressor*) 50 Mg Tab, 50 MG GTB BID, #60 TAB QTUE,ANDREW,SAT,HOLD FOR SBP<110 OR OK<60 10/16/18 Linaclotide (LINZESS) 145 Mcg Capsule, 145 MCG GTB DAILY, #30 CAP 10/16/18 Ipratropium-Albuterol (Ipratropium-Albuterol) 0.5-3 Mg/3 Ml Ampul.neb, 3 ML INHALATION Q6, #30 VIAL FOR 14 DAYS,STOP DATE 10/17/18 10/16/18 Hydralazine Hcl* (Hydralazine Hcl*) 25 Mg Tab, 25 MG GTB DAILY, #60 TAB Q TUE,ANDREW,SAT,HOLD IF SBP<110 OR OK<60 10/16/18 Folic Acid* (Folic Acid*) 1 Mg Tablet, 1 MG GTB DAILY, TAB 10/16/18 Docusate Sodium* (Colace*) 100 Mg Capsule, 100 MG GTB DAILY, #30 CAP 10/16/18 Lorazepam* (Lorazepam*) 1 Mg Tablet, 1 MG GTB HS PRN for ANXIETY, #30 TAB Q TUE,ANDREW,SAT 10/16/18 Amlodipine Besylate* (Norvasc*) 5 Mg Tablet, 5 MG GTB BID, TAB TAKE Q TUE,ANDREW,SAT FOR HTN, HOLD FOR SBP<110 OR OK<60 10/16/18 Acetaminophen* (Acetaminophen*) 650 Mg Tablet, 650 MG GTB Q6H PRN for PAIN LEVEL 1-10/10, #30 TAB 10/16/18 Medications Current Medications IV Flush (NS 3 ml) 3 ml PER PROTOCOL IV ; Start 11/16/18 at 09:00 Ondansetron HCl (Zofran Inj) 4 mg Q6H PRN IV NAUSEA AND/OR VOMITING; Start 11/16/18 at 09:00 Acetaminophen (Tylenol Tab) 650 mg Q6H PRN PO PAIN LEVEL 1-3 OR FEVER Last administered on 12/15/18at 21:42; Admin Dose 650 MG; Start 11/16/18 at 09:00 Docusate Sodium (Colace) 100 mg Q12H PRN PO CONSTIPATION; Start 11/16/18 at 09:00 Magnesium Hydroxide (Milk Of Mag) 30 ml DAILY PRN PO CONSTIPATION; Start 11/16/18 at 09:00 Folic Acid (Folic Acid) 1 mg DAILY GTB Last administered on 12/16/18 09:00; Admin Dose 1 MG; Start 11/16/18 at 09:00 Albuterol/ Ipratropium (Duoneb) 3 ml Q6 PRN HHN sob Last administered on 12/17/18 05:03; Admin Dose 3 ML; Start 11/16/18 at 09:00 Linagliptin (Tradjenta) 5 mg DAILY GTB Last administered on 12/16/18 09:00; Admin Dose 5 MG; Start 11/16/18 at 09:00 Lorazepam (Ativan) 1 mg HS PRN GTB ANXIETY Last administered on 12/15/18 21:43; Admin Dose 1 MG; Start 11/16/18 at 09:00 Quetiapine Fumarate (Seroquel) 25 mg BID GTB Last administered on 12/16/18 20:37; Admin Dose 25 MG; Start 11/16/18 at 09:00 Senna (Senokot) 1 tab BID PO Last administered on 12/16/18 20:37; Admin Dose 1 TAB; Start 11/16/18 at 09:00 Valproate Sodium (Depakene Liquid Cup) 250 mg Q8 PO Last administered on 12/17/18 06:29; Admin Dose 250 MG; Start 11/16/18 at 14:00 Sodium Chloride (NS) -To prime the dialy... DIRECTED FOR HD PRN IV SBP<90; Start 11/16/18 at 15:00 Hydralazine HCl (Apresoline) 10 mg Q4H PRN IV ELEVATED BLOOD PRESSURE Last administered on 12/04/18 21:06; Admin Dose 10 MG; Start 11/17/18 at 10:30 Acetaminophen/ Hydrocodone Bitart ([place] (5/325)) 1 tab Q3H PRN PO MODERATE PAIN LEVEL 4-6 Last administered on 12/06/18 15:38; Admin Dose 1 TAB; Start 11/17/18 at 14:30 Albumin Human 50 ml @ 100 mls/hr WITH DIALYSIS PRN IV SBP<90 Last administered on 12/13/18 11:03; Admin Dose 100 MLS/HR; Start 11/18/18 at 14:30 Morphine Sulfate (morphine) 6 mg Q4H PRN PO SEVERE PAIN LEVEL 7-10 Last adminis tered on 12/13/18 21:31; Admin Dose 6 MG; Start 11/18/18 at 23:00 Docusate Sodium (Colace Liquid Cup) 100 mg DAILY GTB Last administered on 12/16/18 08:59; Admin Dose 100 MG; Start 11/19/18 at 09:30 Guaifenesin/ Dextromethorphan (Robitussin Dm Liquid Cup) 5 ml Q4H PRN PO cough Last administered on 12/07/18 23:55; Admin Dose 5 ML; Start 11/20/18 at 14:00 Multivit/Ca Carb/ B Cmplx/FA/Prenat (Kianna-Roque) 1 tab DAILY GTB Last administered on 12/16/18 08:59; Admin Dose 1 TAB; Start 11/24/18 at 09:00 Lansoprazole (Prevacid) 30 mg DAILY GTB Last administered on 12/16/18 08:59; Admin Dose 30 MG; Start 11/26/18 at 09:00 Acetaminophen (Tylenol Supp) 650 mg Q4H PRN [place] MILD PAIN(1-3) OR TEMP>38C Last administered on 11/26/18 08:32; Admin Dose 650 MG; Start 11/26/18 at 08:30 Ferrous Sulfate (Feosol Liquid Cup) 300 mg BID GTB Last administered on 12/16/18 20:37; Admin Dose 300 MG; Start 12/05/18 at 09:30 Epoetin Michael (Epogen (Esrd)) 4,000 units MoWeFr@17 SC Last administered on 12/15/18 16:43; Admin Dose 4,000 UNITS; Start 12/06/18 at 17:00 Hydralazine HCl (Apresoline) 50 mg Q8 PO Last administered on 12/17/18 06:30; Admin Dose 50 MG; Start 12/07/18 at 22:00 Sodium Chloride (NS) -To prime the dialy... DIRECTED FOR HD PRN IV HD; Start 12/07/18 at 17:30 Metoprolol Tartrate (Lopressor) 100 mg BID GTB Last administered on 12/16/18 20:37; Admin Dose 100 MG; Start 12/13/18 at 21:00 Aspirin (Halfprin) 81 mg DAILY PO Last administered on 12/16/18at 09:00; Admin Dose 81 MG; Start 12/13/18 at 19:30 Miscellaneous Information (*Order Clarification Bulletin) MEDICATION REQUIRES CLARIFICATI... Q8H XX ; Start 12/16/18 at 09:30 Miscellaneous Information (*Order Clarification Bulletin) MEDICATION REQUIRES CLARIFICATI... Q8H XX ; Start 12/17/18 at 12:00 Assessment/Plan Hospital Course (Demo Recall) Proximal atrial fibrillation rapid ventricular response: Currently back in sinus rhythm fungemia Right hand hematoma: Status post IND now Renal failure on dialysis Hypertension Dementia Anemia Possible GI bleed: Status post EGD AI Recommendations: transfusion with HD prn Patient is not a candidate for full anticoagulation due to the fall risk as well as anemia cont beta-farrah Dialysis as per renal team Neuro workup and treatment as per internal medicine Antibiotic as per ID and internal medicine asa for now and monitor Thank you for his referral. We will continue to follow along with you as needed basis CHRISTEN ESCOBEDO MD [facility] CHRISTEN ESCOBEDO MD Dec 17, 2018 11:15
--- NOTE | 2018-12-17 11:22 | CONS ---
Assessment/Plan Assessment/Plan Hospital Course (Demo Recall) No events over night, no fevers Microbiology: Blood culture repeated on November 29 grew Dominique glabrata blood cultures since December 01 that were drawn from permacath negative blood culture on December 03 negative, urine culture growing C glabrata Indwelling: Left chest permacath, PEG Physical examination: Chronically ill-appearing elderly woman who is awake, confused, in no distress. Head atraumatic normocephalic. Neck is supple. Chest rise symmetrical breath sounds diminished bases. Heart: S1-S2. Abdomen soft bowel sounds present, right upper extremity Armani wrapped Assessment: 1. S/p Fungemia secondary to urinary tract infection 2. S/p pneumonia, possibly aspiration 3. Right hand hematoma, status post I&D 11/17/18 4. Status post VRE bacteremia/new Pcath 5. End-stage renal disease, hemodialysis dependent 6. Dementia 7. Failure to thrive 8. Diabetes 9. Anemia 10. S/p sepsis 11. P Afib Plan: Remains unchanged, completed treatment for fungemia, continue present care, repeat cx prn Consultation Date/Type/Reason Admit Date/Time Nov 16, 2018 at 05:51 Initial Consult Date 11/16/18 Type of Consult id Requesting Provider: DYLON WALLS MD Date/Time of Note DATE: 12/17/18 TIME: 11:21 Exam/Review of Systems Exam Vitals Vital Signs Date Temp Pulse Resp B/P (MAP) Pulse Ox O2 O2 Flow FiO2 Time Delivery Rate 12/17/18 80 10:45 12/17/18 124/55 95 Nasal 09:52 (78) Cannula 12/17/18 3.0 05:09 12/17/18 20 05:03 12/17/18 99.4 02:00 Intake and Output 12/16/18 12/16/18 12/17/18 1414:59 22:59 06:59 IntakeIntake Total 60 ml BalanceBalance 60 ml Results Result Diagram: 12/16/18 0700 12/16/18 0700 Medications Medication Current Medications IV Flush (NS 3 ml) 3 ml PER PROTOCOL IV ; Start 11/16/18 at 09:00 Ondansetron HCl (Zofran Inj) 4 mg Q6H PRN IV NAUSEA AND/OR VOMITING; Start 11/16/18 at 09:00 Acetaminophen (Tylenol Tab) 650 mg Q6H PRN PO PAIN LEVEL 1-3 OR FEVER Last administered on 12/15/18 21:42; Admin Dose 650 MG; Start 11/16/18 at 09:00 Docusate Sodium (Colace) 100 mg Q12H PRN PO CONSTIPATION; Start 11/16/18 at 09:00 Magnesium Hydroxide (Milk Of Mag) 30 ml DAILY PRN PO CONSTIPATION; Start 11/16/18 at 09:00 Folic Acid (Folic Acid) 1 mg DAILY GTB Last administered on 12/16/18 09:00; Admin Dose 1 MG; Start 11/16/18 at 09:00 Albuterol/ Ipratropium (Duoneb) 3 ml Q6 PRN HHN sob Last administered on 12/17/18 05:03; Admin Dose 3 ML; Start 11/16/18 at 09:00 Linagliptin (Tradjenta) 5 mg DAILY GTB Last administered on 12/16/18 09:00; Admin Dose 5 MG; Start 11/16/18 at 09:00 Lorazepam (Ativan) 1 mg HS PRN GTB ANXIETY Last administered on 12/15/18 21:43; Admin Dose 1 MG; Start 11/16/18 at 09:00 Quetiapine Fumarate (Seroquel) 25 mg BID GTB Last administered on 12/16/18 20:37; Admin Dose 25 MG; Start 11/16/18 at 09:00 Senna (Senokot) 1 tab BID PO Last administered on 12/16/18 20:37; Admin Dose 1 TAB; Start 11/16/18 at 09:00 Valproate Sodium (Depakene Liquid Cup) 250 mg Q8 PO Last administered on 12/17/18 06:29; Admin Dose 250 MG; Start 11/16/18 at 14:00 Sodium Chloride (NS) -To prime the dialy... DIRECTED FOR HD PRN IV SBP<90; Start 11/16/18 at 15:00 Hydralazine HCl (Apresoline) 10 mg Q4H PRN IV ELEVATED BLOOD PRESSURE Last administered on 12/04/18 21:06; Admin Dose 10 MG; Start 11/17/18 at 10:30 Acetaminophen/ Hydrocodone Bitart ([place] (5/325)) 1 tab Q3H PRN PO MODERATE PAIN LEVEL 4-6 Last administered on 12/06/18 15:38; Admin Dose 1 TAB; Start 11/17/18 at 14:30 Albumin Human 50 ml @ 100 mls/hr WITH DIALYSIS PRN IV SBP<90 Last administered on 12/13/18 11:03; Admin Dose 100 MLS/HR; Start 11/18/18 at 14:30 Morphine Sulfate (morphine) 6 mg Q4H PRN PO SEVERE PAIN LEVEL 7-10 Last administered on 12/13/18 21:31; Admin Dose 6 MG; Start 11/18/18 at 23:00 Docusate Sodium (Colace Liquid Cup) 100 mg DAILY GTB Last administered on 12/16/18 08:59; Admin Dose 100 MG; Start 11/19/18 at 09:30 Guaifenesin/ Dextromethorphan (Robitussin Dm Liquid Cup) 5 ml Q4H PRN PO cough Last administered on 12/07/18 23:55; Admin Dose 5 ML; Start 11/20/18 at 14:00 Multivit/Ca Carb/ B Cmplx/FA/Prenat (Kianna-Roque) 1 tab DAILY GTB Last administe red on 12/16/18 08:59; Admin Dose 1 TAB; Start 11/24/18 at 09:00 Lansoprazole (Prevacid) 30 mg DAILY GTB Last administered on 12/16/18 08:59; Admin Dose 30 MG; Start 11/26/18 at 09:00 Acetaminophen (Tylenol Supp) 650 mg Q4H PRN [place] MILD PAIN(1-3) OR TEMP>38C Last administered on 11/26/18 08:32; Admin Dose 650 MG; Start 11/26/18 at 08:30 Ferrous Sulfate (Feosol Liquid Cup) 300 mg BID GTB Last administered on 12/16/18 20:37; Admin Dose 300 MG; Start 12/05/18 at 09:30 Epoetin Michael (Epogen (Esrd)) 4,000 units MoWeFr@17 SC Last administered on 12/15/18 16:43; Admin Dose 4,000 UNITS; Start 12/06/18 at 17:00 Hydralazine HCl (Apresoline) 50 mg Q8 PO Last administered on 12/17/18 06:30; Admin Dose 50 MG; Start 12/07/18 at 22:00 Sodium Chloride (NS) -To prime the dialy... DIRECTED FOR HD PRN IV HD; Start 12/07/18 at 17:30 Metoprolol Tartrate (Lopressor) 100 mg BID GTB Last administered on 12/16/18at 20:37; Admin Dose 100 MG; Start 12/13/18 at 21:00 Aspirin (Halfprin) 81 mg DAILY PO Last administered on 12/16/18at 09:00; Admin Dose 81 MG; Start 12/13/18 at 19:30 Miscellaneous Information (*Order Clarification Bulletin) MEDICATION REQUIRES CLARIFICATI... Q8H XX ; Start 12/16/18 at 09:30 Miscellaneous Information (*Order Clarification Bulletin) MEDICATION REQUIRES CLARIFICATI... Q8H XX ; Start 12/17/18 at 12:00 PHYLICIA HOLCOMB NP Dec 17, 2018 11:22
[2018-12-17] MEDS: DOCUSATE SODIUM 10 MG/ML (10ML CUP) GTB SCH (13:52)
[2018-12-17] MEDS: SENNA TAB PO SCH ×2 (13:53→22:01)
[2018-12-17] MEDS: QUETIAPINE 25 MG TAB GTB SCH ×2 (13:53→22:01)
[2018-12-17] MEDS: FERROUS SULFATE 60 MG/ML 5ML CUP GTB SCH ×2 (13:53→22:01)
[2018-12-17] MEDS: FOLIC ACID 1 MG TAB GTB SCH (13:53)
[2018-12-17] MEDS: LANSOPRAZOLE 30 MG CAP GTB SCH (13:53)
[2018-12-17] MEDS: ASPIRIN (EC) 81 MG TAB PO SCH (13:53)
[2018-12-17] MEDS: METOPROLOL 50 MG TAB GTB SCH ×2 (13:54→22:01)
[2018-12-17] MEDS: MULTIVIT/CA CARB/B CMPLX/FA TAB GTB SCH (13:54)
[2018-12-17] MEDS ORDERED: ACETAMINOPHEN 325 MG TAB PO PRN (15:00)
[2018-12-17] MEDS: EPOETIN 4000 UNITS/1 ML INJ (ESRD) SC SCH (16:42)
[2018-12-17] MEDS: [UNRECOGNIZED DRUG - OTHER] XX SCH ×2 (19:43→22:02)
--- NOTE | 2018-12-17 20:09 | PN ---
DATE: 12/17/2018 SUBJECTIVE: The patient was seen. PHYSICAL EXAMINATION: VITAL SIGNS: She has temperature of 99, pulse 77, respirations 18, blood pressure 124/63, saturation 96% on 3 liters. GENERAL: The patient is in no acute distress. HEENT: Normocephalic, atraumatic. Pale. CARDIOVASCULAR: S1, S2, regular rate. LUNGS: Clear. ABDOMEN: Soft, nontender. EXTREMITIES: No clubbing, cyanosis or edema. LABORATORY DATA: Done yesterday shows a white count of 9.4, hemoglobin of 7.8. BUN and creatinine i s 32/1.54. No new labs today. We will follow lab tomorrow. MEDICATIONS: The patient's overall list of meds reviewed and included: 1. Lopressor. 2. Aspirin. 3. Hydralazine. 4. Epogen. 5. Ferrous sulfate. 6. Prevacid. 7. Tylenol. 8. Multivitamin. 9. Robitussin. 10. Colace. 11. Morphine. 12. [place]. 13. Hydralazine. 14. Depakote. 15. Zofran. 16. Tylenol. 17. Colace. 18. Milk of Magnesia. 19. Folic acid. 20. DuoNeb. 21. Tradjenta. 22. Ativan. 23. Seroquel. 23. Senna. DIAGNOSTIC DATA: No recent chest x-ray. ASSESSMENT AND PLAN: This is an unfortunate 83-year-old Irish female with end-stage renal disease , dementia, chronic kidney disease on dialysis, chronic obstructive pulmonary disease, who presented with right hand hematoma status post evacuation, status post with recent treatment for line sepsis, b acteremia, fungemia and urinary tract infection. 1. Respiratory. Continue O2 support, breathing treatments p.r.n. Follow up chest x-ray in the even t of fever or chest congestion. 2. Cardiovascular with recent episode of atrial fibrillation with high-dose beta blockers. Continue aspirin for anticoagulation. 3. Anemia. Continue Epogen with dialysis. Continue transfusion p.r.n. 4. End-stage renal disease, dialysis 3 times a week. 5. Diabetes mellitus. Continue Tradjenta. Glucose level uncontrolled. 6. Continue to be on 1:1 sitter due to danger to self and risk of fall. 7. Case was discussed with rehabilitation case coordinator regarding placement as patient unfortunately needs close mon itoring and it is challenging for the facility to take her because of a high maintenance and risk of fall. We will follow labs tomorrow. 8. Infectious disease: Status post treatment for bacteremia, fungemia, pneumonia, et cetera. We claudia l follow. Dictated By: DYLON HULL/MADAN Conf#: [id number] DID#: [id number] CC: CHRISS WELCH MD;*EndCC*
[2018-12-17] MEDS ORDERED: DOCUSATE SODIUM 100 MG CAP PO PRN (21:00)
[2018-12-18 02:00] VITALS: BP 166/69; PULSE 72; RESP 18
[2018-12-18] MEDS: VALPROIC ACID LIQUID CUP 250 MG/5 ML CUP PO SCH ×3 (06:24→21:33)
[2018-12-18] MEDS: [UNRECOGNIZED DRUG - OTHER] XX SCH ×3 (06:28→23:00)
[2018-12-18 07:10] VITALS: BP 158/73; PULSE 76; RESP 15
[2018-12-18] MEDS: MULTIVIT/CA CARB/B CMPLX/FA TAB GTB SCH (09:00)
[2018-12-18] MEDS: FOLIC ACID 1 MG TAB GTB SCH (09:00)
[2018-12-18] MEDS: SENNA TAB PO SCH ×2 (09:01→21:34)
[2018-12-18] MEDS: LINAGLIPTIN 5 MG TABLET GTB SCH (09:01)
[2018-12-18] MEDS: QUETIAPINE 25 MG TAB GTB SCH ×2 (09:01→21:34)
[2018-12-18] MEDS: FERROUS SULFATE 60 MG/ML 5ML CUP GTB SCH ×2 (09:01→21:33)
[2018-12-18] MEDS: ASPIRIN (EC) 81 MG TAB PO SCH (09:01)
[2018-12-18] MEDS: DOCUSATE SODIUM 10 MG/ML (10ML CUP) GTB SCH (09:01)
[2018-12-18] MEDS: LANSOPRAZOLE 30 MG CAP GTB SCH (09:01)
[2018-12-18] MEDS: METOPROLOL 50 MG TAB GTB SCH ×2 (09:02→21:33)
--- NOTE | 2018-12-18 11:56 | CONS ---
Assessment/Plan Assessment/Plan Hospital Course (Demo Recall) 1. End-stage renal disease on hemodialysis. 2. Gastrointestinal bleed with melena. 3. Hypertension. 4. Diabetes. 5. Right hand swelling, s/p I and D on 11/17/18 6. History of falls. 7. Vascular dementia. 8. History of sepsis with VRE. 9. Dysphagia, status post G-tube. 10. History of hip fracture. 11. Thrombocytopenia. 12. Atherosclerotic heart disease. 13. Pneumonia left side 14. Anemia 15. Fungemia. Assessment/Plan (Daily) - Hd was yesterday - cw with permacath -avoid nephrotoxic drugs -HD MWFr -c/w epogen - Aspiration precautions Consultation Date/Type/Reason Admit Date/Time Nov 16, 2018 at 05:51 Initial Consult Date 11/16/18 Type of Consult nephrology Requesting Provider: DYLON WALLS MD Date/Time of Note DATE: 12/18/18 TIME: 11:54 24 HR Interval Summary Constitutional: disoriented Exam/Review of Systems Exam Vitals Vital Signs Date Temp Pulse Resp B/P (MAP) Pulse Ox O2 O2 Flow FiO2 Time Delivery Rate 12/18/18 97.9 76 15 158/73 91 Room Air 07:10 (101) 12/18/18 3.0 06:13 Intake and Output 12/17/18 12/17/18 12/18/18 1515:00 23:00 07:00 OutputOutput Total 900 ml BalanceBalance -900 ml Exam left chest Permcath Constitutional: frail Head: normocephalic Eyes: nl conjunctiva Neck: supple Respiratory: diminished breath sounds Cardiovascular: regular rate and rhythm Gastrointestinal: soft 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: confused Results Result Diagram: 12/18/18 0554 12/18/18 0554 Results 24hrs Laboratory Tests Test 12/18/18 05:54 White Blood Count 13.4 #H Red Blood Count 3.43 L Hemoglobin 9.3 L Hematocrit 29.3 #L Mean Corpuscular Volume 85.4 Mean Corpuscular Hemoglobin 27.1 L Mean Corpuscular Hemoglobin Concent 31.7 L Red Cell Distribution Width 16.8 H Platelet Count 233 Mean Platelet Volume 11.7 H Immature Granulocytes % 3.600 H Neutrophils % 77.2 H Lymphocytes % 8.0 L Monocytes % 7.3 Eosinophils % 3.5 Basophils % 0.4 Nucleated Red Blood Cells % 1.6 H Immature Granulocytes # 0.480 H Neutrophils # 10.3 H Lymphocytes # 1.1 Monocytes # 1.0 H Eosinophils # 0.5 Basophils # 0.1 Nucleated Red Blood Cells # 0.2 H Sodium Level 139 Potassium Level 4.3 Chloride Level 102 Carbon Dioxide Level 31 Anion Gap 6 Blood Urea Nitrogen 41 H Creatinine 1.69 H Est Glomerular Filtrat Rate mL/min Glucose Level 122 Calcium Level 9.3 Phosphorus Level 3.1 Magnesium Level 2.6 H Medications Medication Current Medications IV Flush (NS 3 ml) 3 ml PER PROTOCOL IV ; Start 11/16/18 at 09:00 Ondansetron HCl (Zofran Inj) 4 mg Q6H PRN IV NAUSEA AND/OR VOMITING; Start 11/16/18 at 09:00 Magnesium Hydroxide (Milk Of Mag) 30 ml DAILY PRN PO CONSTIPATION; Start 11/16/18 at 09:00 Sodium Chloride (NS) -To prime the dialy... DIRECTED FOR HD PRN IV SBP<90; Start 11/16/18 at 15:00 Hydralazine HCl (Apresoline) 10 mg Q4H PRN IV ELEVATED BLOOD PRESSURE Last administered on 12/04/18at 21:06; Admin Dose 10 MG; Start 11/17/18 at 10:30 Acetaminophen/ Hydrocodone Bitart ([place] (5/325)) 1 tab Q3H PRN PO MODERATE PAIN LEVEL 4-6 Last administered on 12/06/18at 15:38; Admin Dose 1 TAB; Start 11/17/18 at 14:30 Albumin Human 50 ml @ 100 mls/hr WITH DIALYSIS PRN IV SBP<90 Last administered on 12/13/18at 11:03; Admin Dose 100 MLS/HR; Start 11/18/18 at 14:30 Morphine Sulfate (morphine) 6 mg Q4H PRN PO SEVERE PAIN LEVEL 7-10 Last administered on 12/13/18at 21:31; Admin Dose 6 MG; Start 11/18/18 at 23:00 Docusate Sodium (Colace Liquid Cup) 100 mg DAILY GTB Last administered on 12/18/18at 09:01; Admin Dose 100 MG; Start 11/19/18 at 09:30 Multivit/Ca Carb/ B Cmplx/FA/Prenat (Kianna-Roque) 1 tab DAILY GTB Last administered on 12/18/18 09:00; Admin Dose 1 TAB; Start 11/24/18 at 09:00 Lansoprazole (Prevacid) 30 mg DAILY GTB Last administered on 12/18/18 09:01; Admin Dose 30 MG; Start 11/26/18 at 09:00 Acetaminophen (Tylenol Supp) 650 mg Q4H PRN [place] MILD PAIN(1-3) OR TEMP>38C Last administered on 11/26/18 08:32; Admin Dose 650 MG; Start 11/26/18 at 08:30 Epoetin Michael (Epogen (Esrd)) 4,000 units MoWeFr@17 SC Last administered on 12/17/18 16:42; Admin Dose 4,000 UNITS; Start 12/06/18 at 17:00 Hydralazine HCl (Apresoline) 50 mg Q8 PO Last administered on 12/18/18 06:28; Admin Dose 50 MG; Start 12/07/18 at 22:00 Sodium Chloride (NS) -To prime the dialy... DIRECTED FOR HD PRN IV HD; Start 12/07/18 at 17:30 Metoprolol Tartrate (Lopressor) 100 mg BID GTB Last administered on 12/18/18 09:02; Admin Dose 100 MG; Start 12/13/18 at 21:00 Aspirin (Halfprin) 81 mg DAILY PO Last administered on 12/18/18 09:01; Admin Dose 81 MG; Start 12/13/18 at 19:30 Miscellaneous Information (*Order Clarification Bulletin) MEDICATION REQUIRES CLARIFICATI... Q8H XX Last administered on 12/18/18 11:34; Admin Dose 1 EA; Start 12/17/18 at 12:00; Stop 12/19/18 at 11:59 Miscellaneous Information (*Order Clarification Bulletin) MEDICATION REQUIRES CLARIFICATI... Q8H XX ; Start 12/17/18 at 15:00; Stop 12/19/18 at 14:59 Quetiapine Fumarate (Seroquel) 25 mg BID GTB Last administered on 12/18/18 09:01; Admin Dose 25 MG; Start 12/17/18 at 21:00 Senna (Senokot) 1 tab BID PO Last administered on 12/18/18 09:01; Admin Dose 1 TAB; Start 12/17/18 at 21:00 Valproate Sodium (Depakene Liquid Cup) 250 mg Q8 PO Last administered on 12/18/18at 06:24; Admin Dose 250 MG; Start 12/17/18 at 22:00 Acetaminophen (Tylenol Tab) 650 mg Q6H PRN PO PAIN LEVEL 1-3 OR FEVER; Start 12/17/18 at 15:00 Albuterol/ Ipratropium (Duoneb) 3 ml Q6H RESP THERAPY PRN HHN sob; Start 12/17/18 at 09:00 Docusate Sodium (Colace) 100 mg Q12H PRN PO CONSTIPATION; Start 12/17/18 at 21:00 Ferrous Sulfate (Feosol Liquid Cup) 300 mg BID GTB Last administered on 12/18/18at 09:01; Admin Dose 300 MG; Start 12/17/18 at 21:00 Guaifenesin/ Dextromethorphan (Robitussin Dm Liquid Cup) 5 ml Q4H PRN PO cough; Start 12/17/18 at 18:00 Linagliptin (Tradjenta) 5 mg DAILY GTB Last administered on 12/18/18at 09:01; Admin Dose 5 MG; Start 12/17/18 at 09:00 Lorazepam (Ativan) 1 mg HS PRN GTB ANXIETY; Start 12/17/18 at 09:00 Folic Acid (Folic Acid) 1 mg DAILY GTB Last administered on 12/18/18at 09:00; Admin Dose 1 MG; Start 12/18/18 at 09:00 FLAVIO CLAYTON Dec 18, 2018 11:56
--- NOTE | 2018-12-18 12:17 | CONS ---
Consultation Date/Type/Reason Admit Date/Time Nov 16, 2018 at 05:51 Initial Consult Date SUBJECTIVE: Patient is awake, alert, afebrile. No acute events over night. VS: stable. T: 97.9 LABS: reviewed.WBC- 13.4 Microbiology: Blood culture repeated on November 29 grew Dominique glabrata blood cultures since December 01 that were drawn from permacath negative blood culture on December 03 negative, urine culture growing C glabrata Antimicrobials: Vancomycin, meropenem, Cancidas Indwelling: Left chest permacath, PEG PHYSICAL EXAM: GEN: Chronically ill-appearing elderly woman who is awake, confused, in no distress. HENT: Head atraumatic normocephalic. Neck is supple. PULM: Chest rise symmetrical breath sounds diminished bases. Heart: S1-S2. Abdomen soft bowel sounds present Extremities without R FA edema/erythema Assessment: 1. S/p Fungemia secondary to urinary tract infection 2. S/p pneumonia, possibly aspiration 3. Right hand hematoma, status post I&D 11/17/18 4. Status post VRE bacteremia/new Pcath 5. End-stage renal disease, hemodialysis dependent 6. Dementia 7. Failure to thrive 8. Diabetes 9. Anemia 10. S/p sepsis 11. P Afib Plan: Patient remains stable. Pt has completed treatment for fungemia. Continue present care, repeat cx Requesting Provider: DYLON WALLS MD Date/Time of Note DATE: 12/18/18 TIME: 12:14 Exam/Review of Systems Exam Vitals Vital Signs Date Temp Pulse Resp B/P (MAP) Pulse Ox O2 O2 Flow FiO2 Time Delivery Rate 12/18/18 97.9 76 15 158/73 91 Room Air 07:10 (101) 12/18/18 3.0 06:13 Intake and Output 12/17/18 12/17/18 12/18/18 1515:00 23:00 07:00 OutputOutput Total 900 ml BalanceBalance -900 ml Results Result Diagram: 12/18/18 0554 12/18/18 0554 Results 24hrs Laboratory Tests Test 12/18/18 05:54 White Blood Count 13.4 #H Red Blood Count 3.43 L Hemoglobin 9.3 L Hematocrit 29.3 #L Mean Corpuscular Volume 85.4 Mean Corpuscular Hemoglobin 27.1 L Mean Corpuscular Hemoglobin Concent 31.7 L Red Cell Distribution Width 16.8 H Platelet Count 233 Mean Platelet Volume 11.7 H Immature Granulocytes % 3.600 H Neutrophils % 77.2 H Lymphocytes % 8.0 L Monocytes % 7.3 Eosinophils % 3.5 Basophils % 0.4 Nucleated Red Blood Cells % 1.6 H Immature Granulocytes # 0.480 H Neutrophils # 10.3 H Lymphocytes # 1.1 Monocytes # 1.0 H Eosinophils # 0.5 Basophils # 0.1 Nucleated Red Blood Cells # 0.2 H Sodium Level 139 Potassium Level 4.3 Chloride Level 102 Carbon Dioxide Level 31 Anion Gap 6 Blood Urea Nitrogen 41 H Creatinine 1.69 H Est Glomerular Filtrat Rate mL/min Glucose Level 122 Calcium Level 9.3 Phosphorus Level 3.1 Magnesium Level 2.6 H Medications Medication Current Medications IV Flush (NS 3 ml) 3 ml PER PROTOCOL IV ; Start 11/16/18 at 09:00 Ondansetron HCl (Zofran Inj) 4 mg Q6H PRN IV NAUSEA AND/OR VOMITING; Start 11/16/18 at 09:00 Magnesium Hydroxide (Milk Of Mag) 30 ml DAILY PRN PO CONSTIPATION; Start 11/16/18 at 09:00 Sodium Chloride (NS) -To prime the dialy... DIRECTED FOR HD PRN IV SBP<90; Start 11/16/18 at 15:00 Hydralazine HCl (Apresoline) 10 mg Q4H PRN IV ELEVATED BLOOD PRESSURE Last administered on 12/04/18at 21:06; Admin Dose 10 MG; Start 11/17/18 at 10:30 Acetaminophen/ Hydrocodone Bitart ([place] (5/325)) 1 tab Q3H PRN PO MODERATE PAIN LEVEL 4-6 Last administered on 12/06/18at 15:38; Admin Dose 1 TAB; Start 11/17/18 at 14:30 Albumin Human 50 ml @ 100 mls/hr WITH DIALYSIS PRN IV SBP<90 Last administered on 12/13/18at 11:03; Admin Dose 100 MLS/HR; Start 11/18/18 at 14:30 Morphine Sulfate (morphine) 6 mg Q4H PRN PO SEVERE PAIN LEVEL 7-10 Last administered on 12/13/18at 21:31; Admin Dose 6 MG; Start 11/18/18 at 23:00 Docusate Sodium (Colace Liquid Cup) 100 mg DAILY GTB Last administered on 12/18/18 09:01; Admin Dose 100 MG; Start 11/19/18 at 09:30 Multivit/Ca Carb/ B Cmplx/FA/Prenat (Kianna-Roque) 1 tab DAILY GTB Last administered on 12/18/18 09:00; Admin Dose 1 TAB; Start 11/24/18 at 09:00 Lansoprazole (Prevacid) 30 mg DAILY GTB Last administered on 12/18/18 09:01; Admin Dose 30 MG; Start 11/26/18 at 09:00 Acetaminophen (Tylenol Supp) 650 mg Q4H PRN [place] MILD PAIN(1-3) OR TEMP>38C Last administered on 11/26/18 08:32; Admin Dose 650 MG; Start 11/26/18 at 08:30 Epoetin Michael (Epogen (Esrd)) 4,000 units MoWeFr@17 SC Last administered on 12/17/18 16:42; Admin Dose 4,000 UNITS; Start 12/06/18 at 17:00 Hydralazine HCl (Apresoline) 50 mg Q8 PO Last administered on 12/18/18 06:28; Admin Dose 50 MG; Start 12/07/18 at 22:00 Sodium Chloride (NS) -To prime the dialy... DIRECTED FOR HD PRN IV HD; Start 12/07/18 at 17:30 Metoprolol Tartrate (Lopressor) 100 mg BID GTB Last administered on 12/18/18 09:02; Admin Dose 100 MG; Start 12/13/18 at 21:00 Aspirin (Halfprin) 81 mg DAILY PO Last administered on 12/18/18 09:01; Admin Dose 81 MG; Start 12/13/18 at 19:30 Miscellaneous Information (*Order Clarification Bulletin) MEDICATION REQUIRES CLARIFICATI... Q8H XX Last administered on 12/18/18 11:34; Admin Dose 1 EA; Start 12/17/18 at 12:00; Stop 12/19/18 at 11:59 Miscellaneous Information (*Order Clarification Bulletin) MEDICATION REQUIRES CLARIFICATI... Q8H XX ; Start 12/17/18 at 15:00; Stop 12/19/18 at 14:59 Quetiapine Fumarate (Seroquel) 25 mg BID GTB Last administered on 12/18/18 09:01; Admin Dose 25 MG; Start 12/17/18 at 21:00 Senna (Senokot) 1 tab BID PO Last administered on 12/18/18 09:01; Admin Dose 1 TAB; Start 12/17/18 at 21:00 Valproate Sodium (Depakene Liquid Cup) 250 mg Q8 PO Last administered on 12/18/18 06:24; Admin Dose 250 MG; Start 12/17/18 at 22:00 Acetaminophen (Tylenol Tab) 650 mg Q6H PRN PO PAIN LEVEL 1-3 OR FEVER; Start 12/17/18 at 15:00 Albuterol/ Ipratropium (Duoneb) 3 ml Q6H RESP THERAPY PRN HHN sob; Start 12/17/18 at 09:00 Docusate Sodium (Colace) 100 mg Q12H PRN PO CONSTIPATION; Start 12/17/18 at 21:00 Ferrous Sulfate (Feosol Liquid Cup) 300 mg BID GTB Last administered on 12/18/18 09:01; Admin Dose 300 MG; Start 12/17/18 at 21:00 Guaifenesin/ Dextromethorphan (Robitussin Dm Liquid Cup) 5 ml Q4H PRN PO cough; Start 12/17/18 at 18:00 Linagliptin (Tradjenta) 5 mg DAILY GTB Last administered on 12/18/18 09:01; Admin Dose 5 MG; Start 12/17/18 at 09:00 Lorazepam (Ativan) 1 mg HS PRN GTB ANXIETY; Start 12/17/18 at 09:00 Folic Acid (Folic Acid) 1 mg DAILY GTB Last administered on 12/18/18 09:00; Admin Dose 1 MG; Start 12/18/18 at 09:00 SCOTT SHEEHAN Dec 18, 2018 12:17
[2018-12-18 14:05] VITALS: BP 161/72; PULSE 75; RESP 16
--- NOTE | 2018-12-18 16:22 | PN ---
DATE: 12/18/2018 PHYSICAL EXAMINATION: GENERAL: The patient seen in bed in no acute event. VITAL SIGNS: Temperature 98.2, pulse 75, respirations 16, blood pressure 161/72, saturation 98% on r oom air. GENERAL: No acute distress. The patient is pale. CARDIOVASCULAR: S1, S2, regular rate. LUNGS: Clear. ABDOMEN: Soft. G-tube in place. EXTREMITIES: No clubbing, cyanosis, or edema. LABORATORY DATA: White count went up to 13.4, hemoglobin 9.3, hematocrit 29, platelets 233, neutroph ils 77%, lymphocyte 8%. Chemistry: Sodium 139, potassium 4.3, chloride 102, bicarbonate 31, BUN is 41, creatinine 0.69, glucose 122. MEDICATIONS: Reviewed. Currently off antibiotics. ASSESSMENT AND PLAN: This is an 83-year-old [place] female with end-stage renal disease, dementia, CKD on dialysis, COPD, who presented with right hand hematoma status post evacuation, status post rec ent treatment for line sepsis bacteremia, fungemia and UTI. 1. Respiratory. Continue O2 support, breathing treatment as needed. If white count continues to in crease, we will obtain a chest x-ray. 2. Cardiovascular. The patient with recent episode of atrial fibrillation with RVR. Continue beta blockers, aspirin for anticoagulation. 3. Anemia. Transfuse p.r.n. and Epogen per nephrology. 4. End-stage renal disease. Next dialysis on Thursday. 5. Diabetes mellitus. Glucose level in the 100s. Continue Tradjenta. 6. Continue 1:1 sitter due to danger to self and risk of fall. 7. Dysphagia. Continue G-tube feeding. Patient is not eating much by mouth. 8. Advanced progressive dementia, but overall poor quality of life with now prolonged hospitalizatio n, would recommend comfort measures only. The patient remains FULL CODE for now. 9. manager channel to assist with placement. 10. Monitor temperature and white count. We will follow. Dictated By: DYLON HULL/MADAN Conf#: [id number] DID#: [id number]
[2018-12-18 20:00] VITALS: BP 169/76; PULSE 81; RESP 18
[2018-12-18] MEDS: hydrALAzine 20 MG INJ IV PRN (23:33)
[2018-12-18] MEDS: METOCLOPRAMIDE 10 MG INJ IV PRN (23:33)
[2018-12-19 00:30] VITALS: BP 167/73; PULSE 82; RESP 18
[2018-12-19 02:00] VITALS: BP 150/67; PULSE 86; RESP 16
[2018-12-19] MEDS: ONDANSETRON 4 MG INJ IV PRN (05:53)
[2018-12-19] MEDS: VALPROIC ACID LIQUID CUP 250 MG/5 ML CUP PO SCH ×3 (05:53→22:00)
[2018-12-19] MEDS: [UNRECOGNIZED DRUG - OTHER] XX SCH (06:35)
[2018-12-19 07:57] VITALS: BP 137/62; PULSE 83; RESP 18
--- NOTE | 2018-12-19 08:08 | CONS ---
[facility] HCIS Consult Follow-up Patient Name: Zahira White Unit Number: [id number] Date of : 1935 Patient Status: Admitted Inpatient Attending Doctor: Kemar Walls MD Edit: JOSE RAUL ANDREWS MD on 12/19/18 @ 16:24 ASPIRATION ? FOOD THRU MOUTH HOLD FEEDING IV ABX GI CONSULT SPOKE TO [facility] Assessment/Plan Assessment/Plan Hospital Course (Demo Recall) 1. End-stage renal disease on hemodialysis. 2. Gastrointestinal bleed with melena. 3. Hypertension. 4. Diabetes. 5. Right hand swelling, s/p I and D on 11/17/18 6. History of falls. 7. Vascular dementia. 8. History of sepsis with VRE. 9. Dysphagia, status post G-tube. 10. History of hip fracture. 11. Thrombocytopenia. 12. Atherosclerotic heart disease. 13. Pneumonia left side 14. Anemia 15. Fungemia. Assessment/Plan (Daily) - Hd THU - with permacath -avoid nephrotoxic drugs -HD MWFr -c/w epogen - Aspiration precautions Consultation Date/Type/Reason Admit Date/Time Nov 16, 2018 at 05:51 Initial Consult Date 11/16/18 Type of Consult nephrology Requesting Provider: KEMAR WALLS MD Date/Time of Note DATE: 12/19/18 TIME: 08:07 24 HR Interval Summary Constitutional: disoriented Exam/Review of Systems Exam Vitals Vital Signs Date Temp Pulse Resp B/P (MAP) Pulse Ox O2 O2 Flow FiO2 Time Delivery Rate 12/19/18 98.3 83 18 137/62 99 Nasal 2.0 07:57 (87) Cannula 12/19/18 21 03:51 Exam left chest Permcath Constitutional: frail Psych: confusion Cardiovascular: regular rate and rhythm Gastrointestinal: soft, other (g tube) Skin: ecchymosis, laceration Results Result Diagram: 12/19/18 0530 12/19/18 0530 Results 24hrs Laboratory Tests Test 12/19/18 05:30 12/19/18 07:55 White Blood Count 14.2 H Red Blood Count 3.00 L Hemoglobin 8.0 L Hematocrit 25.4 L Mean Corpuscular Volume 84.7 Mean Corpuscular Hemoglobin 26.7 L Mean Corpuscular Hemoglobin Concent 31.5 L Red Cell Distribution Width 17.0 H Platelet Count 218 Mean Platelet Volume 12.4 H Immature Granulocytes % 4.000 H Neutrophils % 79.1 H Lymphocytes % 6.7 L Monocytes % 7.3 Eosinophils % 2.6 Basophils % 0.3 Nucleated Red Blood Cells % 1.9 H Immature Granulocytes # 0.560 H Neutrophils # 11.2 H Lymphocytes # 1.0 Monocytes # 1.0 H Eosinophils # 0.4 Basophils # 0.0 Nucleated Red Blood Cells # 0.3 H Sodium Level 137 Potassium Level 4.0 Chloride Level 98 Carbon Dioxide Level 28 Anion Gap 11 Blood Urea Nitrogen 73 #H Creatinine 2.26 H Est Glomerular Filtrat Rate mL/min Glucose Level 113 Calcium Level 9.3 Phosphorus Level 3.5 Magnesium Level 2.8 H Bedside Glucose 112 Medications Medication Current Medications IV Flush (NS 3 ml) 3 ml PER PROTOCOL IV ; Start 11/16/18 at 09:00 Ondansetron HCl (Zofran Inj) 4 mg Q6H PRN IV NAUSEA AND/OR VOMITING Last administered on 12/19/18at 05:53; Admin Dose 4 MG; Start 11/16/18 at 09:00 Magnesium Hydroxide (Milk Of Mag) 30 ml DAILY PRN PO CONSTIPATION; Start 11/16/18 at 09:00 Sodium Chloride (NS) -To prime the dialy... DIRECTED FOR HD PRN IV SBP<90; Start 11/16/18 at 15:00 Hydralazine HCl (Apresoline) 10 mg Q4H PRN IV ELEVATED BLOOD PRESSURE Last administered on 12/18/18at 23:33; Admin Dose 10 MG; Start 11/17/18 at 10:30 Acetaminophen/ Hydrocodone Bitart ([place] (5/325)) 1 tab Q3H PRN PO MODERATE PAIN LEVEL 4-6 Last administered on 12/06/18at 15:38; Admin Dose 1 TAB; Start 11/17/18 at 14:30 Albumin Human 50 ml @ 100 mls/hr WITH DIALYSIS PRN IV SBP<90 Last administered on 12/13/18 11:03; Admin Dose 100 MLS/HR; Start 11/18/18 at 14:30 Morphine Sulfate (morphine) 6 mg Q4H PRN PO SEVERE PAIN LEVEL 7-10 Last administered on 12/13/18 21:31; Admin Dose 6 MG; Start 11/18/18 at 23:00 Docusate Sodium (Colace Liquid Cup) 100 mg DAILY GTB Last administered on 12/18/18 09:01; Admin Dose 100 MG; Start 11/19/18 at 09:30 Multivit/Ca Carb/ B Cmplx/FA/Prenat (Kianna-Roque) 1 tab DAILY GTB Last administered on 12/18/18 09:00; Admin Dose 1 TAB; Start 11/24/18 at 09:00 Lansoprazole (Prevacid) 30 mg DAILY GTB Last administered on 12/18/18 09:01; Admin Dose 30 MG; Start 11/26/18 at 09:00 Acetaminophen (Tylenol Supp) 650 mg Q4H PRN [place] MILD PAIN(1-3) OR TEMP>38C Last administered on 11/26/18 08:32; Admin Dose 650 MG; Start 11/26/18 at 08:30 Epoetin Michael (Epogen (Esrd)) 4,000 units MoWeFr@17 SC Last administered on 12/17/18 16:42; Admin Dose 4,000 UNITS; Start 12/06/18 at 17:00 Hydralazine HCl (Apresoline) 50 mg Q8 PO Last administered on 12/19/18 05:53; Admin Dose 50 MG; Start 12/07/18 at 22:00 Sodium Chloride (NS) -To prime the dialy... DIRECTED FOR HD PRN IV HD; Start 12/07/18 at 17:30 Metoprolol Tartrate (Lopressor) 100 mg BID GTB Last administered on 12/18/18 21:33; Admin Dose 100 MG; Start 12/13/18 at 21:00 Aspirin (Halfprin) 81 mg DAILY PO Last administered on 12/18/18 09:01; Admin Dose 81 MG; Start 12/13/18 at 19:30 Miscellaneous Information (*Order Clarification Bulletin) MEDICATION REQUIRES CLARIFICATI... Q8H XX Last administered on 12/18/18 11:34; Admin Dose 1 EA; Start 12/17/18 at 12:00; Stop 12/19/18 at 11:59 Miscellaneous Information (*Order Clarification Bulletin) MEDICATION REQUIRES CLARIFICATI... Q8H XX Last administered on 12/18/18 15:32; Admin Dose 1 EA; Start 12/17/18 at 15:00; Stop 12/19/18 at 14:59 Quetiapine Fumarate (Seroquel) 25 mg BID GTB Last administered on 12/18/18 21:34; Admin Dose 25 MG; Start 12/17/18 at 21:00 Senna (Senokot) 1 tab BID PO Last administered on 12/18/18 21:34; Admin Dose 1 TAB; Start 12/17/18 at 21:00 Valproate Sodium (Depakene Liquid Cup) 250 mg Q8 PO Last administered on 12/19/18 05:53; Admin Dose 250 MG; Start 12/17/18 at 22:00 Acetaminophen (Tylenol Tab) 650 mg Q6H PRN PO PAIN LEVEL 1-3 OR FEVER; Start 12/17/18 at 15:00 Albuterol/ Ipratropium (Duoneb) 3 ml Q6H RESP THERAPY PRN HHN sob Last administered on 12/19/18 03:51; Admin Dose 3 ML; Start 12/17/18 at 09:00 Docusate Sodium (Colace) 100 mg Q12H PRN PO CONSTIPATION; Start 12/17/18 at 21:00 Ferrous Sulfate (Feosol Liquid Cup) 300 mg BID GTB Last administered on 12/18/18 21:33; Admin Dose 300 MG; Start 12/17/18 at 21:00 Guaifenesin/ Dextromethorphan (Robitussin Dm Liquid Cup) 5 ml Q4H PRN PO cough; Start 12/17/18 at 18:00 Linagliptin (Tradjenta) 5 mg DAILY GTB Last administered on 12/18/18 09:01; Admin Dose 5 MG; Start 12/17/18 at 09:00 Lorazepam (Ativan) 1 mg HS PRN GTB ANXIETY; Start 12/17/18 at 09:00 Folic Acid (Folic Acid) 1 mg DAILY GTB Last administered on 12/18/18at 09:00; Admin Dose 1 MG; Start 12/18/18 at 09:00 Metoclopramide HCl (Reglan) 10 mg Q8 PRN IV VOMITTING Last administered on 12/18/18at 23:33; Admin Dose 10 MG; Start 12/18/18 at 22:30 FLAVIO CLAYTON Dec 19, 2018 08:08
[2018-12-19] MEDS: FERROUS SULFATE 60 MG/ML 5ML CUP GTB SCH ×2 (09:07→20:58)
[2018-12-19] MEDS: MULTIVIT/CA CARB/B CMPLX/FA TAB GTB SCH (09:07)
[2018-12-19] MEDS: DOCUSATE SODIUM 10 MG/ML (10ML CUP) GTB SCH (09:07)
[2018-12-19] MEDS: LANSOPRAZOLE 30 MG CAP GTB SCH (09:07)
[2018-12-19] MEDS: ASPIRIN (EC) 81 MG TAB PO SCH (09:07)
[2018-12-19] MEDS: QUETIAPINE 25 MG TAB GTB SCH ×2 (09:09→20:58)
[2018-12-19] MEDS: FOLIC ACID 1 MG TAB GTB SCH (09:09)
[2018-12-19] MEDS: SENNA TAB PO SCH ×2 (09:09→20:58)
[2018-12-19] MEDS: METOPROLOL 50 MG TAB GTB SCH ×2 (09:09→20:58)
[2018-12-19] MEDS: LINAGLIPTIN 5 MG TABLET GTB SCH (09:09)
[2018-12-19] MEDS ORDERED: VANCOMYCIN IV PER PHARMACY XX SCH (09:30)
[2018-12-19] MEDS ORDERED: VANCOMYCIN 1 GM 250 ML IVPB SCH (11:00)
[2018-12-19] MEDS: MEROPENEM 500MG/50 ML (PMX) 50 ML IVPB SCH ×2 (12:17→20:59)
[2018-12-19 14:30] VITALS: BP 152/67; PULSE 82; RESP 17; RESP 18
--- NOTE | 2018-12-19 15:03 | CONS ---
Consultation Date/Type/Reason Admit Date/Time Nov 16, 2018 at 05:51 Initial Consult Date SUBJECTIVE: Patient is awake, alert, afebrile. No acute events over night. VS: stable. T: 97.9 LABS: reviewed.WBC- 14.2 Increasing over the last 2 days. Microbiology: Blood culture repeated on November 29 grew Dominique glabrata blood cultures since December 01 that were drawn from permacath negative blood culture on December 03 negative, urine culture growing C glabrata Antimicrobials: Vancomycin, meropenem, Cancidas Indwelling: Left chest permacath, PEG PHYSICAL EXAM: GEN: Chronically ill-appearing elderly woman who is awake, confused, in no distress. HENT: Head atraumatic normocephalic. Neck is supple. PULM: Chest rise symmetrical breath sounds diminished bases. Heart: S1-S2. Abdomen soft bowel sounds present Extremities without R FA edema/erythema Assessment: 1. S/p Fungemia secondary to urinary tract infection 2. S/p pneumonia, possibly aspiration 3. Right hand hematoma, status post I&D 11/17/18 4. Status post VRE bacteremia/new Pcath 5. End-stage renal disease, hemodialysis dependent 6. Dementia 7. Failure to thrive 8. Diabetes 9. Anemia 10. S/p sepsis 11. P Afib Plan: Patient remains stable. Pt is placed back on Merrem and Vanco per .. Pending repeat blood cultures and will repeat UA culture. Requesting Provider: DYLON WALLS MD Date/Time of Note DATE: 12/19/18 TIME: 15:01 Exam/Review of Systems Exam Vitals Vital Signs Date Temp Pulse Resp B/P (MAP) Pulse Ox O2 O2 Flow FiO2 Time Delivery Rate 12/19/18 98.3 83 18 137/62 99 Nasal 2.0 07:57 (87) Cannula 12/19/18 21 03:51 Results Result Diagram: 12/19/1830 12/19/1830 Results 24hrs Laboratory Tests Test 12/19/18 05:30 12/19/18 07:55 12/19/18 12:27 White Blood Count 14.2 H Red Blood Count 3.00 L Hemoglobin 8.0 L Hematocrit 25.4 L Mean Corpuscular Volume 84.7 Mean Corpuscular Hemoglobin 26.7 L Mean Corpuscular Hemoglobin Concent 31.5 L Red Cell Distribution Width 17.0 H Platelet Count 218 Mean Platelet Volume 12.4 H Immature Granulocytes % 4.000 H Neutrophils % 79.1 H Lymphocytes % 6.7 L Monocytes % 7.3 Eosinophils % 2.6 Basophils % 0.3 Nucleated Red Blood Cells % 1.9 H Immature Granulocytes # 0.560 H Neutrophils # 11.2 H Lymphocytes # 1.0 Monocytes # 1.0 H Eosinophils # 0.4 Basophils # 0.0 Nucleated Red Blood Cells # 0.3 H Sodium Level 137 Potassium Level 4.0 Chloride Level 98 Carbon Dioxide Level 28 Anion Gap 11 Blood Urea Nitrogen 73 #H Creatinine 2.26 H Est Glomerular Filtrat Rate mL/min Glucose Level 113 Calcium Level 9.3 Phosphorus Level 3.5 Magnesium Level 2.8 H Bedside Glucose 112 108 Medications Medication Current Medications IV Flush (NS 3 ml) 3 ml PER PROTOCOL IV ; Start 11/16/18 at 09:00 Ondansetron HCl (Zofran Inj) 4 mg Q6H PRN IV NAUSEA AND/OR VOMITING Last administered on 12/19/18at 05:53; Admin Dose 4 MG; Start 11/16/18 at 09:00 Magnesium Hydroxide (Milk Of Mag) 30 ml DAILY PRN PO CONSTIPATION; Start 11/16/18 at 09:00 Sodium Chloride (NS) -To prime the dialy... DIRECTED FOR HD PRN IV SBP<90; Start 11/16/18 at 15:00 Hydralazine HCl (Apresoline) 10 mg Q4H PRN IV ELEVATED BLOOD PRESSURE Last administered on 12/18/18at 23:33; Admin Dose 10 MG; Start 11/17/18 at 10:30 Acetaminophen/ Hydrocodone Bitart ([address] (5/325)) 1 tab Q3H PRN PO MODERATE PAIN LEVEL 4-6 Last administered on 12/06/18at 15:38; Admin Dose 1 TAB; Start 11/17/18 at 14:30 Albumin Human 50 ml @ 100 mls/hr WITH DIALYSIS PRN IV SBP<90 Last administered on 12/13/18at 11:03; Admin Dose 100 MLS/HR; Start 11/18/18 at 14:30 Morphine Sulfate (morphine) 6 mg Q4H PRN PO SEVERE PAIN LEVEL 7-10 Last administered on 12/13/18at 21:31; Admin Dose 6 MG; Start 11/18/18 at 23:00 Docusate Sodium (Colace Liquid Cup) 100 mg DAILY GTB Last administered on 12/19/18 09:07; Admin Dose 100 MG; Start 11/19/18 at 09:30 Multivit/Ca Carb/ B Cmplx/FA/Prenat (Kianna-Roque) 1 tab DAILY GTB Last administered on 12/19/18 09:07; Admin Dose 1 TAB; Start 11/24/18 at 09:00 Lansoprazole (Prevacid) 30 mg DAILY GTB Last administered on 12/19/18 09:07; Admin Dose 30 MG; Start 11/26/18 at 09:00 Acetaminophen (Tylenol Supp) 650 mg Q4H PRN [place] MILD PAIN(1-3) OR TEMP>38C Last administered on 11/26/18 08:32; Admin Dose 650 MG; Start 11/26/18 at 08:30 Epoetin Michael (Epogen (Esrd)) 4,000 units MoWeFr@17 SC Last administered on 12/17/18 16:42; Admin Dose 4,000 UNITS; Start 12/06/18 at 17:00 Hydralazine HCl (Apresoline) 50 mg Q8 PO Last administered on 12/19/18 14:47; Admin Dose 50 MG; Start 12/07/18 at 22:00 Sodium Chloride (NS) -To prime the dialy... DIRECTED FOR HD PRN IV HD; Start 12/07/18 at 17:30 Metoprolol Tartrate (Lopressor) 100 mg BID GTB Last administered on 12/19/18 0 9:09; Admin Dose 100 MG; Start 12/13/18 at 21:00 Aspirin (Halfprin) 81 mg DAILY PO Last administered on 12/19/18 09:07; Admin Dose 81 MG; Start 12/13/18 at 19:30 Quetiapine Fumarate (Seroquel) 25 mg BID GTB Last administered on 12/19/18 09:09; Admin Dose 25 MG; Start 12/17/18 at 21:00 Senna (Senokot) 1 tab BID PO Last administered on 12/19/18 09:09; Admin Dose 1 TAB; Start 12/17/18 at 21:00 Valproate Sodium (Depakene Liquid Cup) 250 mg Q8 PO Last administered on 12/19/18 14:46; Admin Dose 250 MG; Start 12/17/18 at 22:00 Acetaminophen (Tylenol Tab) 650 mg Q6H PRN PO PAIN LEVEL 1-3 OR FEVER; Start 12/17/18 at 15:00 Albuterol/ Ipratropium (Duoneb) 3 ml Q6H RESP THERAPY PRN HHN sob Last admi nistered on 12/19/18 03:51; Admin Dose 3 ML; Start 12/17/18 at 09:00 Docusate Sodium (Colace) 100 mg Q12H PRN PO CONSTIPATION; Start 12/17/18 at 21:00 Ferrous Sulfate (Feosol Liquid Cup) 300 mg BID GTB Last administered on 12/19/18 09:07; Admin Dose 300 MG; Start 12/17/18 at 21:00 Guaifenesin/ Dextromethorphan (Robitussin Dm Liquid Cup) 5 ml Q4H PRN PO cough; Start 12/17/18 at 18:00 Linagliptin (Tradjenta) 5 mg DAILY GTB Last administered on 12/19/18 09:09; Admin Dose 5 MG; Start 12/17/18 at 09:00 Lorazepam (Ativan) 1 mg HS PRN GTB ANXIETY; Start 12/17/18 at 09:00 Folic Acid (Folic Acid) 1 mg DAILY GTB Last administered on 12/19/18 09:09; Admin Dose 1 MG; Start 12/18/18 at 09:00 Metoclopramide HCl (Reglan) 10 mg Q8 PRN IV VOMITTING Last administered on 12/18/18 23:33; Admin Dose 10 MG; Start 12/18/18 at 22:30 Vancomycin HCl (Vanco Iv Per Pharmacy) VANCOMYCIN PER PHARMACY PER PROTOCOL XX ; Start 12/19/18 at 09:30 Meropenem/Sodium Chloride 50 ml @ 100 mls/hr Q12 IVPB Last administered on 12/19/18 12:17; Admin Dose 100 MLS/HR; Start 12/19/18 at 11:00 Vancomycin HCl 250 ml @ 125 mls/hr ONCE@1100 IVPB Last administered on 12/19/18 14:42; Admin Dose 125 MLS/HR; Start 12/19/18 at 11:00; Stop 12/19/18 at 19:00 SCOTT SHEEHAN Dec 19, 2018 15:03
--- NOTE | 2018-12-19 16:59 | CONS ---
Assessment/Plan Assessment/Plan Assessment/Plan (Daily) Hospital Course 83 yo female in ESRD on HD presents for melena and anemia and also found to have edematous Rt hand/wrist 1. UGIB manifested through melena and anemia -no melena noted or GI bleeding noted by nursing staff 2. Anemia, acute on chronic, acute likely due to blood loss in rt hand -Hgb 6.8->10.6->9.2->8.3 -No evidence of active GI bleeding, consider etiology of blood loss anemia to be from hematoma in hand -s/p 2 units with HD on 11/17 -Fe wnl, TIBC low, Ferritin, folate, b12 high, FOB neg 3. ESRD on HD -receiving HD currently 4. Hematoma of Rt hand and wrist -I and D drainage by Dr. Dean 11/17 5. Dysphagia -on tube feeds and pureed nectar for oral gratification -Tube feeds boluses QID 6. DM2 7. HTN 8. H/O diastolic dysfunction heart failure 9. S/P EGD 11/18 10. Moderate gastritis with no bleeding noted. 11. Hospital acquired pneumonia- concern for aspiration 12. Yeast in blood cx 13. Emesis after each bolus mostly related to gastroparesis Gastric biopsy results: Stomach, biopsy: -- Antral and oxyntic mucosa showing minimal plasma cell infiltration and small focus of intestinal metaplasia. -- No Helicobacter pylori is identified in Giemsa stain (positive control concurrently reviewed). -- No evidence of dysplasia or malignancy. Plan: Cont abx Continue present care Monitor HH closely and for active GI bleeding PPI once a day We will start patient on Reglan half an hour before each bolus feed. Reglan should be 5 mg. Consultation Date/Type/Reason Admit Date/Time Nov 16, 2018 at 05:51 Initial Consult Date 11/16/18 Requesting Provider: DYLON WALLS MD Date/Time of Note DATE: 12/19/18 TIME: 16:58 24 HR Interval Summary Free Text/Dictation GI consult was called in for a vomiting after each bolus Exam/Review of Systems Exam Vitals Vital Signs Date Temp Pulse Resp B/P (MAP) Pulse Ox O2 O2 Flow FiO2 Time Delivery Rate 12/19/18 99.2 82 17 152/67 98 Nasal 2.0 14:30 (95) Cannula 12/19/18 21 03:51 ENMT: nl external ears & nose, nl lips & teeth, nl nasal mucosa & septum Neck: supple Musculoskeletal: nl extremities to inspection, nl gait and stance Results Result Diagram: 12/19/1830 12/19/1830 Results 24hrs Laboratory Tests Test 12/19/18 05:30 12/19/18 07:55 12/19/18 12:27 White Blood Count 14.2 H Red Blood Count 3.00 L Hemoglobin 8.0 L Hematocrit 25.4 L Mean Corpuscular Volume 84.7 Mean Corpuscular Hemoglobin 26.7 L Mean Corpuscular Hemoglobin Concent 31.5 L Red Cell Distribution Width 17.0 H Platelet Count 218 Mean Platelet Volume 12.4 H Immature Granulocytes % 4.000 H Neutrophils % 79.1 H Lymphocytes % 6.7 L Monocytes % 7.3 Eosinophils % 2.6 Basophils % 0.3 Nucleated Red Blood Cells % 1.9 H Immature Granulocytes # 0.560 H Neutrophils # 11.2 H Lymphocytes # 1.0 Monocytes # 1.0 H Eosinophils # 0.4 Basophils # 0.0 Nucleated Red Blood Cells # 0.3 H Sodium Level 137 Potassium Level 4.0 Chloride Level 98 Carbon Dioxide Level 28 Anion Gap 11 Blood Urea Nitrogen 73 #H Creatinine 2.26 H Est Glomerular Filtrat Rate mL/min Glucose Level 113 Calcium Level 9.3 Phosphorus Level 3.5 Magnesium Level 2.8 H Bedside Glucose 112 108 Medications Medication Current Medications IV Flush (NS 3 ml) 3 ml PER PROTOCOL IV ; Start 11/16/18 at 09:00 Ondansetron HCl (Zofran Inj) 4 mg Q6H PRN IV NAUSEA AND/OR VOMITING Last administered on 12/19/18at 05:53; Admin Dose 4 MG; Start 11/16/18 at 09:00 Magnesium Hydroxide (Milk Of Mag) 30 ml DAILY PRN PO CONSTIPATION; Start 11/16/18 at 09:00 Sodium Chloride (NS) -To prime the dialy... DIRECTED FOR HD PRN IV SBP<90; Start 11/16/18 at 15:00 Hydralazine HCl (Apresoline) 10 mg Q4H PRN IV ELEVATED BLOOD PRESSURE Last administered on 12/18/18at 23:33; Admin Dose 10 MG; Start 11/17/18 at 10:30 Acetaminophen/ Hydrocodone Bitart ([place] (5/325)) 1 tab Q3H PRN PO MODERATE PA IN LEVEL 4-6 Last administered on 12/06/18 15:38; Admin Dose 1 TAB; Start 11/17/18 at 14:30 Albumin Human 50 ml @ 100 mls/hr WITH DIALYSIS PRN IV SBP<90 Last administered on 12/13/18 11:03; Admin Dose 100 MLS/HR; Start 11/18/18 at 14:30 Morphine Sulfate (morphine) 6 mg Q4H PRN PO SEVERE PAIN LEVEL 7-10 Last administered on 12/13/18 21:31; Admin Dose 6 MG; Start 11/18/18 at 23:00 Docusate Sodium (Colace Liquid Cup) 100 mg DAILY GTB Last administered on 12/19/18 09:07; Admin Dose 100 MG; Start 11/19/18 at 09:30 Multivit/Ca Carb/ B Cmplx/FA/Prenat ([place]ian[place]-Roque) 1 tab DAILY GTB Last administer ed on 12/19/18 09:07; Admin Dose 1 TAB; Start 11/24/18 at 09:00 Lansoprazole (Prevacid) 30 mg DAILY GTB Last administered on 12/19/18 09:07; Admin Dose 30 MG; Start 11/26/18 at 09:00 Acetaminophen (Tylenol Supp) 650 mg Q4H PRN [place] MILD PAIN(1-3) OR TEMP>38C Last administered on 11/26/18 08:32; Admin Dose 650 MG; Start 11/26/18 at 08:30 Epoetin Michael (Epogen (Esrd)) 4,000 units MoWeFr@17 SC Last administered on 12/17/18 16:42; Admin Dose 4,000 UNITS; Start 12/06/18 at 17:00 Hydralazine HCl (Apresoline) 50 mg Q8 PO Last administered on 12/19/18 14:47; Admin Dose 50 MG; Start 12/07/18 at 22:00 Sodium Chloride (NS) -To prime the dialy... DIRECTED FOR HD PRN IV HD; Start 12/07/18 at 17:30 Metoprolol Tartrate (Lopressor) 100 mg BID GTB Last administered on 12/19/18 09:09; Admin Dose 100 MG; Start 12/13/18 at 21:00 Aspirin (Halfprin) 81 mg DAILY PO Last administered on 12/19/18 09:07; Admin Dose 81 MG; Start 12/13/18 at 19:30 Quetiapine Fumarate (Seroquel) 25 mg BID GTB Last administered on 12/19/18 09:09; Admin Dose 25 MG; Start 12/17/18 at 21:00 Senna (Senokot) 1 tab BID PO Last administered on 12/19/18 09:09; Admin Dose 1 TAB; Start 12/17/18 at 21:00 Valproate Sodium (Depakene Liquid Cup) 250 mg Q8 PO Last administered on 12/19/18 14:46; Admin Dose 250 MG; Start 12/17/18 at 22:00 Acetaminophen (Tylenol Tab) 650 mg Q6H PRN PO PAIN LEVEL 1-3 OR FEVER; Start 12/17/18 at 15:00 Albuterol/ Ipratropium (Duoneb) 3 ml Q6H RESP THERAPY PRN HHN sob Last administered on 12/19/18 03:51; Admin Dose 3 ML; Start 12/17/18 at 09:00 Docusate Sodium (Colace) 100 mg Q12H PRN PO CONSTIPATION; Start 12/17/18 at 21:00 Ferrous Sulfate (Feosol Liquid Cup) 300 mg BID GTB Last administered on 12/19/18 09:07; Admin Dose 300 MG; Start 12/17/18 at 21:00 Guaifenesin/ Dextromethorphan (Robitussin Dm Liquid Cup) 5 ml Q4H PRN PO cough; Start 12/17/18 at 18:00 Linagliptin (Tradjenta) 5 mg DAILY GTB Last administered on 12/19/18 09:09; Admin Dose 5 MG; Start 12/17/18 at 09:00 Lorazepam (Ativan) 1 mg HS PRN GTB ANXIETY; Start 12/17/18 at 09:00 Folic Acid (Folic Acid) 1 mg DAILY GTB Last administered on 12/19/18 09:09; Admin Dose 1 MG; Start 12/18/18 at 09:00 Metoclopramide HCl (Reglan) 10 mg Q8 PRN IV VOMITTING Last administered on 12/18/18 23:33; Admin Dose 10 MG; Start 12/18/18 at 22:30 Vancomycin HCl (Vanco Iv Per Pharmacy) VANCOMYCIN PER PHARMACY PER PROTOCOL XX ; Start 12/19/18 at 09:30 Meropenem/Sodium Chloride 50 ml @ 100 mls/hr Q12 IVPB Last administered on 12/19/18at 12:17; Admin Dose 100 MLS/HR; Start 12/19/18 at 11:00 Vancomycin HCl 250 ml @ 125 mls/hr ONCE@1100 IVPB Last administered on 12/19/18at 14:42; Admin Dose 125 MLS/HR; Start 12/19/18 at 11:00; Stop 12/19/18 at 19:00 Dextrose/Sodium Chloride 1,000 ml @ 30 mls/hr Q24H IV ; Start 12/19/18 at 16:00 CHRISS WELCH MD Dec 19, 2018 16:59
[2018-12-19 17:21] VITALS: PULSE 80
[2018-12-19] MEDS: METOCLOPRAMIDE 10 MG INJ IV PRN (17:37)
[2018-12-19] MEDS: DEXTROSE 5%-0.45% NACL 1,000 ML IV SCH (17:38)
[2018-12-19 20:00] VITALS: BP 159/71; PULSE 82; RESP 20
[2018-12-20] VITALS (26 sets, daily range): BP systolic 119–182; BP diastolic 52–77; PULSE 65–84; RESP 18–20
[2018-12-20] MEDS: VALPROIC ACID LIQUID CUP 250 MG/5 ML CUP PO SCH ×2 (06:00→14:16)
--- NOTE | 2018-12-20 07:23 | PN ---
DATE: 12/19/2018 SUBJECTIVE: The patient was seen. Unfortunately overnight, she had episodes of nausea, vomiting aft er she has been given a bolus feeding. I told her to hold the feeding morning and just resume it in the afternoon. I was concerned about worsening leukocytosis. White count again increased to 14.2. I ordered a KUB, chest x-ray and blood cultures and the KUB revealed the following: Gastrostomy tube projected over the left upper quadrant of the abdomen, patchy atelectasis or infiltrate in the left lower lung behind the heart. The chest x-ray revealed mild cardiomegaly with CHF and pulmonary edema . I requested again broad spectrum antibiotics due to possible recurrent pneumonia. Also, we will s ee if the blood cultures are positive as the patient had history of line sepsis and fungemia. PHYSICAL EXAMINATION: VITAL SIGNS: Temperature 98.3, pulse 93, respirations 18, blood pressure 137/62, saturation 99% on 2 liters. Per nursing staff also, she has saturation about 90% on room air so she was slightly more h ypoxic than usual. GENERAL: The patient is frail, sleeping. HEENT: Pale. CARDIOVASCULAR: S1 and S2. LUNGS: Rhonchi bilaterally noted. Appears to be more congested. ABDOMEN: Soft, nontender. EXTREMITIES: No clubbing, cyanosis or edema. LABORATORY DATA: White count increased to 14.2, hemoglobin is 8, hematocrit 25, platelet count is 21 8, neutrophils 79%, lymphocytes 7%. Chemistry: Sodium 137, potassium 4.0, chloride 98, bicarbonate 28, BUN 73, creatinine 2.26 and glucose of 113. MEDICATIONS: 1. Merrem q.12 2. Vancomycin dose per pharmacy. 3. Reglan 10 mg q.8 p.r.n. 4. Folic acid 1 mg daily. 5. Depakote 250 q.8. 6. Seroquel 25 b.i.d. 7. Senna 1 tab b.i.d. 8. Colace 100 q.12 p.r.n. 9. Ferrous sulfate 300 b.i.d. 10. Robitussin p.r.n. 11. Tylenol p.r.n. 12. DuoNeb p.r.n. 13. Tradjenta 5 mg daily. 14. Ativan p.r.n. 15. Lopressor 100 b.i.d. 16. Aspirin 81 daily. 17. Hydralazine 50 q.8. 18. Epogen every Thursday, Thursday, Thursday 4,000. 19. Prevacid 30 mg daily. 20. Tylenol p.r.n. 21. Kianna-Roque 1 tab daily. 22. Colace 100 daily. 23. Morphine sulfate p.r.n. 24. [place] p.r.n. 25. p.r.n. 26. Zofran. 27. Milk of Magnesia p.r.n. ASSESSMENT AND PLAN: This is an 83-year-old [place] female with end-stage renal disease, dementia, chronic kidney disease on dialysis, chronic obstructive pulmonary disease, who presented initially wi th right hand hematoma status post incision and drainage, now on treatment recently for line sepsis b acteremia, fungemia, urinary tract infection. 1. Respiratory: Definitely more congestion concerning for aspiration. The patient will be started again on broad spectrum antibiotics with Merrem and vancomycin. Follow up all cultures. Follow up s erial chest x-ray. Monitor WBC. Continue O2 support. 2. Cardiovascular. The patient with history of atrial fibrillation with rapid ventricular response, currently in sinus. Continue beta blockers and aspirin. 3. Anemia. Continue Epogen and transfusion p.r.n. Follow up H and H, which did drop since yesterda y. 4. End-stage renal disease. Dialysis every Thursday, Thursday and Thursday. Next dialysis is tomorrow . May need more frequent dialysis based on the above chest x-ray results. 5. Diabetes mellitus, controlled. Continue Tradjenta and sliding scale. 6. Continue 1:1 sitter due to danger to self and risk of fall. 7. Dysphagia, receiving G-tube feeding, antiemetics p.r.n. to see if she tolerates it. 8. Advanced dementia with poor quality of life. The patient remains full code. We would definitely recommend comfort measures in general due to her poor quality of life, prolonged hospitalization and overall decline, malnutrition status, et cetera. 9. manager acquisition is assisting with overall placement. We will continue to monitor closely. Delaney peck is guarded. Dictated By: DYLON HULL/MADAN Conf#: [id number] DID#: [id number] CC: CHRISS WELCH MD;*End*
--- NOTE | 2018-12-20 09:21 | CONS ---
Assessment/Plan Assessment/Plan Hospital Course (Demo Recall) 83 yo female in ESRD on HD presents for melena and anemia and also found to have edematous Rt hand/wrist 1. UGIB manifested through melena and anemia -no melena noted or GI bleeding noted by nursing staff -RESOLVED 2. Anemia, acute on chronic, acute likely due to blood loss in rt hand -Hgb 6.8->10.6->9.2->8.3 -No evidence of active GI bleeding, consider etiology of blood loss anemia to be from hematoma in hand -s/p 2 units with HD on 11/17 -Fe wnl, TIBC low, Ferritin, folate, b12 high, FOB neg -STABLE 3. ESRD on HD -Followed by nephrology 4. Hematoma of Rt hand and wrist -I and D drainage by Dr. Dean 11/17 -IMPROVED 5. Dysphagia -on tube feeds and pureed nectar for oral gratification -Tube feeds boluses QID 6. DM2 7. HTN 8. H/O diastolic dysfunction heart failure 9. S/P EGD 11/18 10. Moderate gastritis with no bleeding noted. 11. Hospital acquired pneumonia -improved 12. Yeast in blood cx -improved Gastric biopsy results: Stomach, biopsy: -- Antral and oxyntic mucosa showing minimal plasma cell infiltration and small focus of intestinal metaplasia. -- No Helicobacter pylori is identified in Giemsa stain (positive control concurrently reviewed). -- No evidence of dysplasia or malignancy. Plan: FOB Reglan 5 mg prior to meals, low dose to due ESRD Continue present care Monitor HH closely and for active GI bleeding, PPI BID Pt examined and plan of care discussed with Dr. Baird Consultation Date/Type/Reason Admit Date/Time Nov 16, 2018 at 05:51 Initial Consult Date 11/16/18 Requesting Provider: DYLON WALLS MD Date/Time of Note DATE: 12/20/18 TIME: 09:16 24 HR Interval Summary Free Text/Dictation Pt has been lethargic, not following simple commands, transferred to telemetry, CT of brain shows no acute changes. No vomiting. SBP has been elevated. Receiving HD Exam/Review of Systems Exam Vitals Vital Signs Date Temp Pulse Resp B/P (MAP) Pulse Ox O2 O2 Flow FiO2 Time Delivery Rate 12/20/18 98.2 72 18 156/67 97 Nasal 07:30 (96) Cannula 12/20/18 3.0 00:43 12/19/18 21 03:51 Intake and Output 12/19/18 12/19/18 12/20/18 1515:00 23:00 07:00 IntakeIntake Total 50 ml 340 ml 640 ml BalanceBalance 50 ml 340 ml 640 ml Eyes: nl sclera, PERRL Respiratory: diminished breath sounds Cardiovascular: regular rate and rhythm Gastrointestinal: soft, non-tender 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: lethargic Results Result Diagram: 12/20/1839 12/20/18 0539 Results 24hrs Laboratory Tests Test 12/19/18 12:27 12/20/18 05:39 Bedside Glucose 108 White Blood Count 14.1 H Red Blood Count 2.97 L Hemoglobin 7.9 L Hematocrit 26.0 L Mean Corpuscular Volume 87.5 Mean Corpuscular Hemoglobin 26.6 L Mean Corpuscular Hemoglobin Concent 30.4 L Red Cell Distribution Width 17.2 H Platelet Count 229 Mean Platelet Volume 12.3 H Immature Granulocytes % 6.100 H Neutrophils % 72.5 Segmented Neutrophils % (Manual) 78 H Band Neutrophils % (Manual) 1 Lymphocytes % 8.0 L Lymphocytes % (Manual) 3 L Reactive Lymphocytes % (Manual) 1 H Monocytes % 10.4 Monocytes % (Manual) 11 Eosinophils % 2.1 Eosinophils % (Manual) 2 Basophils % 0.9 Basophils % (Manual) 1 Metamyelocytes % (manual) 1 H Myelocytes % (Manual) 2 H Nucleated Red Blood Cells % 5 H Immature Granulocytes # 0.860 H Neutrophils # 10.2 H Neutrophils # (Manual) 11.0 H Band Neutrophils # 0.1 Lymphocytes (Manual) 0.4 L Lymphocytes # 1.1 Reactive Lymphocytes # 0.1 H Monocytes # 1.5 H Monocytes # (Manual) 1.5 H Eosinophils # 0.3 Basophils # 0.1 Basophils # (Manual) 0.1 H Metamyelocytes # 0.1 H Myelocytes # 0.2 H Nucleated Red Blood Cells # 0.4 H Platelet Estimate NORMAL Polychromasia 3+ Hypochromasia 1+ Poikilocytosis 1+ Anisocytosis 1+ Microcytosis 2+ Sodium Level 136 Potassium Level 4.9 Chloride Level 101 Carbon Dioxide Level 29 Anion Gap 6 Blood Urea Nitrogen 88 H Creatinine 2.79 H Est Glomerular Filtrat Rate mL/min Glucose Level 155 Calcium Level 8.9 Phosphorus Level 6.1 #H Magnesium Level 3.1 H Total Bilirubin 0.1 L Direct Bilirubin 0.00 Indirect Bilirubin 0.1 Aspartate Amino Transf (AST/SGOT) 23 Alanine Aminotransferase (ALT/SGPT) 12 L Alkaline Phosphatase 74 Total Protein 7.3 Albumin 3.6 Globulin 3.70 H Albumin/Globulin Ratio 0.97 Hepatitis B Surface Antigen NEGATIVE Medications Medication Current Medications IV Flush (NS 3 ml) 3 ml PER PROTOCOL IV ; Start 11/16/18 at 09:00 Ondansetron HCl (Zofran Inj) 4 mg Q6H PRN IV NAUSEA AND/OR VOMITING Last administered on 12/19/18 05:53; Admin Dose 4 MG; Start 11/16/18 at 09:00 Magnesium Hydroxide (Milk Of Mag) 30 ml DAILY PRN PO CONSTIPATION; Start 11/16/18 at 09:00 Sodium Chloride (NS) -To prime the dialy... DIRECTED FOR HD PRN IV SBP<90; Start 11/16/18 at 15:00 Hydralazine HCl (Apresoline) 10 mg Q4H PRN IV ELEVATED BLOOD PRESSURE Last administered on 12/18/18 23:33; Admin Dose 10 MG; Start 11/17/18 at 10:30 Acetaminophen/ Hydrocodone Bitart ([place] (5/325)) 1 tab Q3H PRN PO MODERATE PAIN LEVEL 4-6 Last administered on 12/06/18at 15:38; Admin Dose 1 TAB; Start 11/17/18 at 14:30 Albumin Human 50 ml @ 100 mls/hr WITH DIALYSIS PRN IV SBP<90 Last administered on 12/13/18 11:03; Admin Dose 100 MLS/HR; Start 11/18/18 at 14:30 Morphine Sulfate (morphine) 6 mg Q4H PRN PO SEVERE PAIN LEVEL 7-10 Last administered on 12/13/18 21:31; Admin Dose 6 MG; Start 11/18/18 at 23:00 Docusate Sodium (Colace Liquid Cup) 100 mg DAILY GTB Last administered on 12/19 09:07; Admin Dose 100 MG; Start 11/19/18 at 09:30 Multivit/Ca Carb/ B Cmplx/FA/Prenat ([place]ianna-Roque) 1 tab DAILY GTB Last administered on 12/19/18 09:07; Admin Dose 1 TAB; Start 11/24/18 at 09:00 Lansoprazole (Prevacid) 30 mg DAILY GTB Last administered on 12/19/18 09:07; Admin Dose 30 MG; Start 11/26/18 at 09:00 Acetaminophen (Tylenol Supp) 650 mg Q4H PRN [place] MILD PAIN(1-3) OR TEMP>38C Last administered on 11/26/18 08:32; Admin Dose 650 MG; Start 11/26/18 at 08:30 Epoetin Michael (Epogen (Esrd)) 4,000 units MoWeFr@17 SC Last administered on 12/17/18 16:42; Admin Dose 4,000 UNITS; Start 12/06/18 at 17:00 Hydralazine HCl (Apresoline) 50 mg Q8 PO Last administered on 12/20/18 06:02; Admin Dose 50 MG; Start 12/07/18 at 22:00 Sodium Chloride (NS) -To prime the dialy... DIRECTED FOR HD PRN IV HD; Start 12/07/18 at 17:30 Metoprolol Tartrate (Lopressor) 100 mg BID GTB Last administered on 12/19/18 20:58; Admin Dose 100 MG; Start 12/13/18 at 21:00 Aspirin (Halfprin) 81 mg DAILY PO Last administered on 12/19/18 09:07; Admin Dose 81 MG; Start 12/13/18 at 19:30 Quetiapine Fumarate (Seroquel) 25 mg BID GTB Last administered on 12/19/18 20:58; Admin Dose 25 MG; Start 12/17/18 at 21:00 Senna (Senokot) 1 tab BID PO Last administered on 12/19/18 20:58; Admin Dose 1 TAB; Start 12/17/18 at 21:00 Valproate Sodium (Depakene Liquid Cup) 250 mg Q8 PO Last administered on 12/20/18 06:00; Admin Dose 250 MG; Start 12/17/18 at 22:00 Acetaminophen (Tylenol Tab) 650 mg Q6H PRN PO PAIN LEVEL 1-3 OR FEVER; Start 12/17/18 at 15:00 Albuterol/ Ipratropium (Duoneb) 3 ml Q6H RESP THERAPY PRN HHN sob Last administered on 12/19/18 03:51; Admin Dose 3 ML; Start 12/17/18 at 09:00 Docusate Sodium (Colace) 100 mg Q12H PRN PO CONSTIPATION; Start 12/17/18 at 21:00 Ferrous Sulfate (Feosol Liquid Cup) 300 mg BID GTB Last administered on 12/19/18 20:58; Admin Dose 300 MG; Start 12/17/18 at 21:00 Guaifenesin/ Dextromethorphan (Robitussin Dm Liquid Cup) 5 ml Q4H PRN PO cough; Start 12/17/18 at 18:00 Linagliptin (Tradjenta) 5 mg DAILY GTB Last administered on 12/19/18 09:09; Admin Dose 5 MG; Start 12/17/18 at 09:00 Lorazepam (Ativan) 1 mg HS PRN GTB ANXIETY; Start 12/17/18 at 09:00 Folic Acid (Folic Acid) 1 mg DAILY GTB Last administered on 12/19/18 09:09; Admin Dose 1 MG; Start 12/18/18 at 09:00 Metoclopramide HCl (Reglan) 10 mg Q8 PRN IV VOMITTING Last administered on 12/19/18 17:37; Admin Dose 10 MG; Start 12/18/18 at 22:30 Vancomycin HCl (Vanco Iv Per Pharmacy) VANCOMYCIN PER PHARMACY PER PROTOCOL XX ; Start 12/19/18 at 09:30 Meropenem/Sodium Chloride 50 ml @ 100 mls/hr Q12 IVPB Last administered on 12/19/18 20:59; Admin Dose 100 MLS/HR; Start 12/19/18 at 11:00 Dextrose/Sodium Chloride 1,000 ml @ 30 mls/hr Q24H IV Last administered on 12/19/18 17:38; Admin Dose 30 MLS/HR; Start 12/19/18 at 16:00 TONY VENCES Dec 20, 2018 09:21
[2018-12-20] MEDS ORDERED: METOCLOPRAMIDE 10 MG INJ IV PRN (10:00)
--- NOTE | 2018-12-20 11:23 | CONS ---
Assessment/Plan Assessment/Plan Hospital Course (Demo Recall) In hemodialysis looks comfortable no fevers overnight WBC today remain elevated at 14.1 Microbiology: Blood culture repeated on November 29 grew Dominique glabrata blood cultures since December 01 that were drawn from permacath negative blood culture on December 03 negative, urine culture growing C glabrata Indwelling: Left chest permacath, PEG Physical examination: Chronically ill-appearing elderly woman who is awake, confused, in no distress. Head atraumatic normocephalic. Neck is supple. Chest rise symmetrical breath sounds diminished bases. Heart: S1-S2. Abdomen soft bowel sounds present, right upper extremity Armani wrapped Assessment: 1. S/p Fungemia secondary to urinary tract infection 2. S/p pneumonia, possibly aspiration 3. Right hand hematoma, status post I&D 11/17/18 4. Status post VRE bacteremia/new Pcath 5. End-stage renal disease, hemodialysis dependent 6. Dementia 7. Failure to thrive 8. Diabetes 9. Anemia 10. S/p sepsis 11. P Afib Plan: Clinically stable, leukocytosis persists, chest x-ray noted, will repeat urine culture and blood cultures Consultation Date/Type/Reason Admit Date/Time Nov 16, 2018 at 05:51 Initial Consult Date 11/16/18 Type of Consult id Requesting Provider: DYLON WALLS MD Date/Time of Note DATE: 12/20/18 TIME: 11:22 Exam/Review of Systems Exam Vitals Vital Signs Date Temp Pulse Resp B/P (MAP) Pulse Ox O2 O2 Flow FiO2 Time Delivery Rate 12/20/18 77 11:19 12/20/18 Nasal 2.5 08:00 Cannula 12/20/18 98.2 18 156/67 97 07:30 (96) 12/19/18 21 03:51 Intake and Output 12/19/18 12/19/18 12/20/18 1515:00 23:00 07:00 IntakeIntake Total 50 ml 340 ml 640 ml BalanceBalance 50 ml 340 ml 640 ml Results Result Diagram: 12/20/18 0539 12/20/18 0539 Results 24hrs Laboratory Tests Test 12/19/18 12:27 12/20/18 05:39 Bedside Glucose 108 White Blood Count 14.1 H Red Blood Count 2.97 L Hemoglobin 7.9 L Hematocrit 26.0 L Mean Corpuscular Volume 87.5 Mean Corpuscular Hemoglobin 26.6 L Mean Corpuscular Hemoglobin Concent 30.4 L Red Cell Distribution Width 17.2 H Platelet Count 229 Mean Platelet Volume 12.3 H Immature Granulocytes % 6.100 H Neutrophils % 72.5 Segmented Neutrophils % (Manual) 78 H Band Neutrophils % (Manual) 1 Lymphocytes % 8.0 L Lymphocytes % (Manual) 3 L Reactive Lymphocytes % (Manual) 1 H Monocytes % 10.4 Monocytes % (Manual) 11 Eosinophils % 2.1 Eosinophils % (Manual) 2 Basophils % 0.9 Basophils % (Manual) 1 Metamyelocytes % (manual) 1 H Myelocytes % (Manual) 2 H Nucleated Red Blood Cells % 5 H Immature Granulocytes # 0.860 H Neutrophils # 10.2 H Neutrophils # (Manual) 11.0 H Band Neutrophils # 0.1 Lymphocytes (Manual) 0.4 L Lymphocytes # 1.1 Reactive Lymphocytes # 0.1 H Monocytes # 1.5 H Monocytes # (Manual) 1.5 H Eosinophils # 0.3 Basophils # 0.1 Basophils # (Manual) 0.1 H Metamyelocytes # 0.1 H Myelocytes # 0.2 H Nucleated Red Blood Cells # 0.4 H Platelet Estimate NORMAL Polychromasia 3+ Hypochromasia 1+ Poikilocytosis 1+ Anisocytosis 1+ Microcytosis 2+ Sodium Level 136 Potassium Level 4.9 Chloride Level 101 Carbon Dioxide Level 29 Anion Gap 6 Blood Urea Nitrogen 88 H Creatinine 2.79 H Est Glomerular Filtrat Rate mL/min Glucose Level 155 Calcium Level 8.9 Phosphorus Level 6.1 #H Magnesium Level 3.1 H Total Bilirubin 0.1 L Direct Bilirubin 0.00 Indirect Bilirubin 0.1 Aspartate Amino Transf (AST/SGOT) 23 Alanine Aminotransferase (ALT/SGPT) 12 L Alkaline Phosphatase 74 Total Protein 7.3 Albumin 3.6 Globulin 3.70 H Albumin/Globulin Ratio 0.97 Hepatitis B Surface Antigen NEGATIVE Medications Medication Current Medications IV Flush (NS 3 ml) 3 ml PER PROTOCOL IV ; Start 11/16/18 at 09:00 Ondansetron HCl (Zofran Inj) 4 mg Q6H PRN IV NAUSEA AND/OR VOMITING Last administered on 12/19/18at 05:53; Admin Dose 4 MG; Start 11/16/18 at 09:00 Magnesium Hydroxide (Milk Of Mag) 30 ml DAILY PRN PO CONSTIPATION; Start 11/16/18 at 09:00 Sodium Chloride (NS) -To prime the dialy... DIRECTED FOR HD PRN IV SBP<90; Start 11/16/18 at 15:00 Hydralazine HCl (Apresoline) 10 mg Q4H PRN IV ELEVATED BLOOD PRESSURE Last administered on 12/18/18 23:33; Admin Dose 10 MG; Start 11/17/18 at 10:30 Acetaminophen/ Hydrocodone Bitart ([place] (5/325)) 1 tab Q3H PRN PO MODERATE PAIN LEVEL 4-6 Last administered on 12/06/18 15:38; Admin Dose 1 TAB; Start 11/17/18 at 14:30 Albumin Human 50 ml @ 100 mls/hr WITH DIALYSIS PRN IV SBP<90 Last administered on 12/13/18 11:03; Admin Dose 100 MLS/HR; Start 11/18/18 at 14:30 Morphine Sulfate (morphine) 6 mg Q4H PRN PO SEVERE PAIN LEVEL 7-10 Last administered on 12/13/18 21:31; Admin Dose 6 MG; Start 11/18/18 at 23:00 Docusate Sodium (Colace Liquid Cup) 100 mg DAILY GTB Last administered on 12/19/18 09:07; Admin Dose 100 MG; Start 11/19/18 at 09:30 Multivit/Ca Carb/ B Cmplx/FA/Prenat (Kianna-Roque) 1 tab DAILY GTB Last administered on 12/19/18 09:07; Admin Dose 1 TAB; Start 11/24/18 at 09:00 Lansoprazole (Prevacid) 30 mg DAILY GTB Last administered on 12/19/18 09:07; Admin Dose 30 MG; Start 11/26/18 at 09:00 Acetaminophen (Tylenol Supp) 650 mg Q4H PRN [place] MILD PAIN(1-3) OR TEMP>38C Last administered on 11/26/18 08:32; Admin Dose 650 MG; Start 11/26/18 at 08:30 Epoetin Michael (Epogen (Esrd)) 4,000 units MoWeFr@17 SC Last administered on 12/17/18 16:42; Admin Dose 4,000 UNITS; Start 12/06/18 at 17:00 Hydralazine HCl (Apresoline) 50 mg Q8 PO Last administered on 12/20/18 06:02; Admin Dose 50 MG; Start 12/07/18 at 22:00 Sodium Chloride (NS) -To prime the dialy... DIRECTED FOR HD PRN IV HD; Start 12/07/18 at 17:30 Metoprolol Tartrate (Lopressor) 100 mg BID GTB Last administered on 12/19/18 20:58; Admin Dose 100 MG; Start 12/13/18 at 21:00 Aspirin (Halfprin) 81 mg DAILY PO Last administered on 12/19/18 09:07; Admin Dose 81 MG; Start 12/13/18 at 19:30 Quetiapine Fumarate (Seroquel) 25 mg BID GTB Last administered on 12/19/18 20:58; Admin Dose 25 MG; Start 12/17/18 at 21:00 Senna (Senokot) 1 tab BID PO Last administered on 12/19/18 20:58; Admin Dose 1 TAB; Start 12/17/18 at 21:00 Valproate Sodium (Depakene Liquid Cup) 250 mg Q8 PO Last administered on 12/20/18 06:00; Admin Dose 250 MG; Start 12/17/18 at 22:00 Acetaminophen (Tylenol Tab) 650 mg Q6H PRN PO PAIN LEVEL 1-3 OR FEVER; Start 12/17/18 at 15:00 Albuterol/ Ipratropium (Duoneb) 3 ml Q6H RESP THERAPY PRN HHN sob Last administered on 12/19/18 03:51; Admin Dose 3 ML; Start 12/17/18 at 09:00 Docusate Sodium (Colace) 100 mg Q12H PRN PO CONSTIPATION; Start 12/17/18 at 21:00 Ferrous Sulfate (Feosol Liquid Cup) 300 mg BID GTB Last administered on 12/19/18 20:58; Admin Dose 300 MG; Start 12/17/18 at 21:00 Guaifenesin/ Dextromethorphan (Robitussin Dm Liquid Cup) 5 ml Q4H PRN PO cough; Start 12/17/18 at 18:00 Linagliptin (Tradjenta) 5 mg DAILY GTB Last administered on 12/19/18 09:09; A dmin Dose 5 MG; Start 12/17/18 at 09:00 Lorazepam (Ativan) 1 mg HS PRN GTB ANXIETY; Start 12/17/18 at 09:00 Folic Acid (Folic Acid) 1 mg DAILY GTB Last administered on 12/19/18at 09:09; Admin Dose 1 MG; Start 12/18/18 at 09:00 Vancomycin HCl (Vanco Iv Per Pharmacy) VANCOMYCIN PER PHARMACY PER PROTOCOL XX ; Start 12/19/18 at 09:30 Meropenem/Sodium Chloride 50 ml @ 100 mls/hr Q12 IVPB Last administered on 12/19/18at 20:59; Admin Dose 100 MLS/HR; Start 12/19/18 at 11:00 Dextrose/Sodium Chloride 1,000 ml @ 30 mls/hr Q24H IV Last administered on 12/19/18at 17:38; Admin Dose 30 MLS/HR; Start 12/19/18 at 16:00 Metoclopramide HCl (Reglan) 5 mg Q8 PRN IV VOMITTING; Start 12/20/18 at 10:00 PHYLICIA HOLCOMB NP Dec 20, 2018 11:23
[2018-12-20] MEDS: FOLIC ACID 1 MG TAB GTB SCH (12:10)
[2018-12-20] MEDS: FERROUS SULFATE 60 MG/ML 5ML CUP GTB SCH ×2 (12:10→20:21)
[2018-12-20] MEDS: DOCUSATE SODIUM 10 MG/ML (10ML CUP) GTB SCH (12:10)
[2018-12-20] MEDS: MULTIVIT/CA CARB/B CMPLX/FA TAB GTB SCH (12:11)
[2018-12-20] MEDS: QUETIAPINE 25 MG TAB GTB SCH (12:11)
[2018-12-20] MEDS: LANSOPRAZOLE 30 MG CAP GTB SCH (12:11)
[2018-12-20] MEDS: ASPIRIN (EC) 81 MG TAB PO SCH (12:11)
[2018-12-20] MEDS: SENNA TAB PO SCH ×2 (12:12→20:22)
[2018-12-20] MEDS: LINAGLIPTIN 5 MG TABLET GTB SCH (12:12)
[2018-12-20] MEDS: MEROPENEM 500MG/50 ML (PMX) 50 ML IVPB SCH ×2 (12:12→20:21)
[2018-12-20] MEDS: METOPROLOL 50 MG TAB GTB SCH ×2 (12:14→20:22)
--- NOTE | 2018-12-20 13:44 | PN ---
Date/Time of Note Date/Time of Note DATE: 12/20/18 TIME: 13:43 Assessment/Plan VTE Prophylaxis Risk score (from Ns)>0 risk: 6 SCD applied (from Ns): Yes Pharmacological prophylaxis: NA/contraindicated Pharm contraindication: low risk/ambulating Lines/Catheters IV [facility] Saline Lock Urinary Cath still in place: No Assessment/Plan Hospital Course 83 y/o with 1. Right hand swelling, likely secondary to hematoma, questionable fall. with compression s/p I and D on 11/17/18 2. Gastrointestinal bleed with melena. 3. Hypertension. 4. Diabetes. 5. End-stage renal disease on hemodialysis. 6. History of falls. 7. Vascular dementia.with AMS 8. History of sepsis with VRE. 9. Dysphagia, status post G-tube. 10. History of hip fracture. 11. Thrombocytopenia. 12. Atherosclerotic heart disease. 13 FEVERS now with yeast bacterimia due to UTI reoslved 14 AMS ? METABOLIC ct HEAD neg Plan - HD today - Monitor fevers - ABX PER primary - Ct head neg - g tub emontiored by GI - Hold BP meds before hd - renally dose all meds Result Diagram: 12/20/18 0539 12/20/18 0539 Results 24hrs Laboratory Tests Test 12/20/18 05:39 White Blood Count 14.1 H Red Blood Count 2.97 L Hemoglobin 7.9 L Hematocrit 26.0 L Mean Corpuscular Volume 87.5 Mean Corpuscular Hemoglobin 26.6 L Mean Corpuscular Hemoglobin Concent 30.4 L Red Cell Distribution Width 17.2 H Platelet Count 229 Mean Platelet Volume 12.3 H Immature Granulocytes % 6.100 H Neutrophils % 72.5 Segmented Neutrophils % (Manual) 78 H Band Neutrophils % (Manual) 1 Lymphocytes % 8.0 L Lymphocytes % (Manual) 3 L Reactive Lymphocytes % (Manual) 1 H Monocytes % 10.4 Monocytes % (Manual) 11 Eosinophils % 2.1 Eosinophils % (Manual) 2 Basophils % 0.9 Basophils % (Manual) 1 Metamyelocytes % (manual) 1 H Myelocytes % (Manual) 2 H Nucleated Red Blood Cells % 5 H Immature Granulocytes # 0.860 H Neutrophils # 10.2 H Neutrophils # (Manual) 11.0 H Band Neutrophils # 0.1 Lymphocytes (Manual) 0.4 L Lymphocytes # 1.1 Reactive Lymphocytes # 0.1 H Monocytes # 1.5 H Monocytes # (Manual) 1.5 H Eosinophils # 0.3 Basophils # 0.1 Basophils # (Manual) 0.1 H Metamyelocytes # 0.1 H Myelocytes # 0.2 H Nucleated Red Blood Cells # 0.4 H Platelet Estimate NORMAL Polychromasia 3+ Hypochromasia 1+ Poikilocytosis 1+ Anisocytosis 1+ Microcytosis 2+ Sodium Level 136 Potassium Level 4.9 Chloride Level 101 Carbon Dioxide Level 29 Anion Gap 6 Blood Urea Nitrogen 88 H Creatinine 2.79 H Est Glomerular Filtrat Rate mL/min Glucose Level 155 Calcium Level 8.9 Phosphorus Level 6.1 #H Magnesium Level 3.1 H Total Bilirubin 0.1 L Direct Bilirubin 0.00 Indirect Bilirubin 0.1 Aspartate Amino Transf (AST/SGOT) 23 Alanine Aminotransferase (ALT/SGPT) 12 L Alkaline Phosphatase 74 Total Protein 7.3 Albumin 3.6 Globulin 3.70 H Albumin/Globulin Ratio 0.97 Hepatitis B Surface Antigen NEGATIVE Subjective 24 Hr Interval Summary Free Text/Dictation pt does not repsond much HD today Exam/Review of Systems Exam Vitals Vital Signs Date Temp Pulse Resp B/P (MAP) Pulse Ox O2 O2 Flow FiO2 Time Delivery Rate 12/20/18 84 12:55 12/20/18 20 157/75 99 Nasal 3.0 11:25 (102) Cannula 12/20/18 97.7 11:15 12/19/18 21 03:51 Intake and Output 12/19/18 12/19/18 12/20/18 1515:00 23:00 07:00 IntakeIntake Total 50 ml 340 ml 640 ml BalanceBalance 50 ml 340 ml 640 ml Exam eft chest Permcath Constitutional: frail Psych: confusion Cardiovascular: regular rate and rhythm Gastrointestinal: soft, other (g tube) Skin: ecchymosis, laceration Results Results Results 24hrs Laboratory Tests Test 12/20/18 05:39 White Blood Count 14.1 H Red Blood Count 2.97 L Hemoglobin 7.9 L Hematocrit 26.0 L Mean Corpuscular Volume 87.5 Mean Corpuscular Hemoglobin 26.6 L Mean Corpuscular Hemoglobin Concent 30.4 L Red Cell Distribution Width 17.2 H Platelet Count 229 Mean Platelet Volume 12.3 H Immature Granulocytes % 6.100 H Neutrophils % 72.5 Segmented Neutrophils % (Manual) 78 H Band Neutrophils % (Manual) 1 Lymphocytes % 8.0 L Lymphocytes % (Manual) 3 L Reactive Lymphocytes % (Manual) 1 H Monocytes % 10.4 Monocytes % (Manual) 11 Eosinophils % 2.1 Eosinophils % (Manual) 2 Basophils % 0.9 Basophils % (Manual) 1 Metamyelocytes % (manual) 1 H Myelocytes % (Manual) 2 H Nucleated Red Blood Cells % 5 H Immature Granulocytes # 0.860 H Neutrophils # 10.2 H Neutrophils # (Manual) 11.0 H Band Neutrophils # 0.1 Lymphocytes (Manual) 0.4 L Lymphocytes # 1.1 Reactive Lymphocytes # 0.1 H Monocytes # 1.5 H Monocytes # (Manual) 1.5 H Eosinophils # 0.3 Basophils # 0.1 Basophils # (Manual) 0.1 H Metamyelocytes # 0.1 H Myelocytes # 0.2 H Nucleated Red Blood Cells # 0.4 H Platelet Estimate NORMAL Polychromasia 3+ Hypochromasia 1+ Poikilocytosis 1+ Anisocytosis 1+ Microcytosis 2+ Sodium Level 136 Potassium Level 4.9 Chloride Level 101 Carbon Dioxide Level 29 Anion Gap 6 Blood Urea Nitrogen 88 H Creatinine 2.79 H Est Glomerular Filtrat Rate mL/min Glucose Level 155 Calcium Level 8.9 Phosphorus Level 6.1 #H Magnesium Level 3.1 H Total Bilirubin 0.1 L Direct Bilirubin 0.00 Indirect Bilirubin 0.1 Aspartate Amino Transf (AST/SGOT) 23 Alanine Aminotransferase (ALT/SGPT) 12 L Alkaline Phosphatase 74 Total Protein 7.3 Albumin 3.6 Globulin 3.70 H Albumin/Globulin Ratio 0.97 Hepatitis B Surface Antigen NEGATIVE Medications Medication Current Medications IV Flush (NS 3 ml) 3 ml PER PROTOCOL IV ; Start 11/16/18 at 09:00 Ondansetron HCl (Zofran Inj) 4 mg Q6H PRN IV NAUSEA AND/OR VOMITING Last administered on 12/19/18at 05:53; Admin Dose 4 MG; Start 11/16/18 at 09:00 Magnesium Hydroxide (Milk Of Mag) 30 ml DAILY PRN PO CONSTIPATION; Start 11/16/18 at 09:00 Sodium Chloride (NS) -To prime the dialy... DIRECTED FOR HD PRN IV SBP<90; Start 11/16/18 at 15:00 Hydralazine HCl (Apresoline) 10 mg Q4H PRN IV ELEVATED BLOOD PRESSURE Last administered on 12/18/18 23:33; Admin Dose 10 MG; Start 11/17/18 at 10:30 Acetaminophen/ Hydrocodone Bitart ([place] (5/325)) 1 tab Q3H PRN PO MODERATE PAIN LEVEL 4-6 Last administered on 12/06/18 15:38; Admin Dose 1 TAB; Start 11/17/18 at 14:30 Albumin Human 50 ml @ 100 mls/hr WITH DIALYSIS PRN IV SBP<90 Last administered on 12/13/18 11:03; Admin Dose 100 MLS/HR; Start 11/18/18 at 14:30 Morphine Sulfate (morphine) 6 mg Q4H PRN PO SEVERE PAIN LEVEL 7-10 Last administered on 12/13/18 21:31; Admin Dose 6 MG; Start 11/18/18 at 23:00 Docusate Sodium (Colace Liquid Cup) 100 mg DAILY GTB Last administered on 12/20/18 12:10; Admin Dose 100 MG; Start 11/19/18 at 09:30 Multivit/Ca Carb/ B Cmplx/FA/Prenat (Kianna-Roque) 1 tab DAILY GTB Last adm inistered on 12/20/18 12:11; Admin Dose 1 TAB; Start 11/24/18 at 09:00 Lansoprazole (Prevacid) 30 mg DAILY GTB Last administered on 12/20/18 12:11; Admin Dose 30 MG; Start 11/26/18 at 09:00 Acetaminophen (Tylenol Supp) 650 mg Q4H PRN [place] MILD PAIN(1-3) OR TEMP>38C Last administered on 11/26/18 08:32; Admin Dose 650 MG; Start 11/26/18 at 08:30 Epoetin Michael (Epogen (Esrd)) 4,000 units MoWeFr@17 SC Last administered on 12/17/18 16:42; Admin Dose 4,000 UNITS; Start 12/06/18 at 17:00 Hydralazine HCl (Apresoline) 50 mg Q8 PO Last administered on 12/20/18 06:02; Admin Dose 50 MG; Start 12/07/18 at 22:00 Sodium Chloride (NS) -To prime the dialy... DIRECTED FOR HD PRN IV HD; Start 12/07/18 at 17:30 Metoprolol Tartrate (Lopressor) 100 mg BID GTB Last administered on 12/20/18at 12:14; Admin Dose 100 MG; Start 12/13/18 at 21:00 Aspirin (Halfprin) 81 mg DAILY PO Last administered on 12/20/18 12:11; Admin Dose 81 MG; Start 12/13/18 at 19:30 Quetiapine Fumarate (Seroquel) 25 mg BID GTB Last administered on 12/20/18 12:11; Admin Dose 25 MG; Start 12/17/18 at 21:00 Senna (Senokot) 1 tab BID PO Last administered on 12/20/18 12:12; Admin Dose 1 TAB; Start 12/17/18 at 21:00 Valproate Sodium (Depakene Liquid Cup) 250 mg Q8 PO Last administered on 12/20/18at 06:00; Admin Dose 250 MG; Start 12/17/18 at 22:00 Acetaminophen (Tylenol Tab) 650 mg Q6H PRN PO PAIN LEVEL 1-3 OR FEVER; Start 12/17/18 at 15:00 Albuterol/ Ipratropium (Duoneb) 3 ml Q6H RESP THERAPY PRN HHN sob Last administered on 12/19/18at 03:51; Admin Dose 3 ML; Start 12/17/18 at 09:00 Docusate Sodium (Colace) 100 mg Q12H PRN PO CONSTIPATION; Start 12/17/18 at 21:00 Ferrous Sulfate (Feosol Liquid Cup) 300 mg BID GTB Last administered on 12/20/18at 12:10; Admin Dose 300 MG; Start 12/17/18 at 21:00 Guaifenesin/ Dextromethorphan (Robitussin Dm Liquid Cup) 5 ml Q4H PRN PO cough; Start 12/17/18 at 18:00 Linagliptin (Tradjenta) 5 mg DAILY GTB Last administered on 12/20/18at 12:12; Admin Dose 5 MG; Start 12/17/18 at 09:00 Lorazepam (Ativan) 1 mg HS PRN GTB ANXIETY; Start 12/17/18 at 09:00 Folic Acid (Folic Acid) 1 mg DAILY GTB Last administered on 12/20/18at 12:10; Admin Dose 1 MG; Start 12/18/18 at 09:00 Vancomycin HCl (Vanco Iv Per Pharmacy) VANCOMYCIN PER PHARMACY PER PROTOCOL XX ; Start 12/19/18 at 09:30 Meropenem/Sodium Chloride 50 ml @ 100 mls/hr Q12 IVPB Last administered on 12/20/18at 12:12; Admin Dose 100 MLS/HR; Start 12/19/18 at 11:00 Dextrose/Sodium Chloride 1,000 ml @ 30 mls/hr Q24H IV Last administered on 12/19/18at 17:38; Admin Dose 30 MLS/HR; Start 12/19/18 at 16:00 Metoclopramide HCl (Reglan) 5 mg Q8 PRN IV VOMITTING; Start 12/20/18 at 10:00 Miscellaneous Information (*Rx Drug Level Order Reminder*) VANCOMYCIN RANDOM LEVEL 2... ONCE ONCE XX ; Start 12/21/18 at 05:00; Stop 12/21/18 at 05:01 JOSE RAUL ANDREWS MD Dec 20, 2018 13:44
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
[2018-12-20] MEDS: DEXTROSE 5%-0.45% NACL 1,000 ML IV SCH (16:00)
[2018-12-20] MEDS: EPOETIN 4000 UNITS/1 ML INJ (ESRD) SC SCH (17:31)
--- NOTE | 2018-12-20 18:12 | CONS ---
Consult Date/Type/Reason Admit Date/Time Nov 16, 2018 at 05:51 Initial Consult Date 11/16/18 Type of Consultation: cv Requesting Provider: DYLON WALLS MD Date/Time of Note DATE: 12/20/18 TIME: 18:11 Subjective Cardiology follow up note Sl DW/ Staff and telemetry was reviewed. Patient has remained in normal sinus rhythm now Discussed with the patient daughter and events noted. Patient has been transferred to telemetry she has been lethargic. no report of any chest pain or pressure or palpitations but pt is a very poor historian Events noted. 12/13/18: Patient went into atrial fibrillation rapid ventricular response during hemodialysis . Patient has been transferred to telemetry and converted back to sinus rhythm remains in sinus rhythm s/p I/D 11/17 EGD 11.18.18 O: General: Elderly frail male in no acute distress HEENT: NC/AT. Eyes are closed NECK: NO JVD. no stridor. CV: RRR. systolic murmur; no gallop or rubs. PULM: no wheezing or rhonchi. GI: SOFT, NT, ND, no rebound or guarding neuro: Screaming does not follow any commands. Psych: confused rectal: deferred CXR 11/22: 1. Left lung interstitial opacities may reflect edema or pneumonia. Findings are new when compared to the prior examination. 2. Mild cardiomegaly and aortic atherosclerosis. 3. Left chest Perma-Cath with tip in the lower SVC. review of old chart shows ECHO done Oct 2018: Normal left ventricular systolic function. Normal left ventricular cavity size. Moderate concentric left ventricular hypertrophy. Ejection fraction is visually estimated at 65 %. Abnormal Diastolic Function. Mitral valve leaflets appear moderately thickened. Moderate mitral annular calcification. Trace mitral regurgitation. Aortic valve not well visualized. No hemodynamically significant aortic stenosis by doppler. Aortic sclerosis without significant stenosis. Aortic cusps appear mildly calcified. Mild to moderate aortic valve regurgitation. Estimated peak PA systolic pressure 40 mmHg. Tricuspid valve appears moderately thickened. There is mild tricuspid regurg Objective Vitals Vital Signs Date Temp Pulse Resp B/P (MAP) Pulse Ox O2 O2 Flow FiO2 Time Delivery Rate 12/20/18 65 16:54 12/20/18 98.0 18 129/60 100 Nasal 15:20 (83) Cannula 12/20/18 3.0 11:25 12/19/18 21 03:51 Intake and Output 12/19/18 12/19/18 12/20/18 1515:00 23:00 07:00 IntakeIntake Total 50 ml 340 ml 640 ml BalanceBalance 50 ml 340 ml 640 ml Results/Medications Result Diagram: 12/20/18 0539 12/20/18 0539 Results 24 hrs Laboratory Tests Test 12/20/18 05:39 White Blood Count 14.1 H Red Blood Count 2.97 L Hemoglobin 7.9 L Hematocrit 26.0 L Mean Corpuscular Volume 87.5 Mean Corpuscular Hemoglobin 26.6 L Mean Corpuscular Hemoglobin Concent 30.4 L Red Cell Distribution Width 17.2 H Platelet Count 229 Mean Platelet Volume 12.3 H Immature Granulocytes % 6.100 H Neutrophils % 72.5 Segmented Neutrophils % (Manual) 78 H Band Neutrophils % (Manual) 1 Lymphocytes % 8.0 L Lymphocytes % (Manual) 3 L Reactive Lymphocytes % (Manual) 1 H Monocytes % 10.4 Monocytes % (Manual) 11 Eosinophils % 2.1 Eosinophils % (Manual) 2 Basophils % 0.9 Basophils % (Manual) 1 Metamyelocytes % (manual) 1 H Myelocytes % (Manual) 2 H Nucleated Red Blood Cells % 5 H Immature Granulocytes # 0.860 H Neutrophils # 10.2 H Neutrophils # (Manual) 11.0 H Band Neutrophils # 0.1 Lymphocytes (Manual) 0.4 L Lymphocytes # 1.1 Reactive Lymphocytes # 0.1 H Monocytes # 1.5 H Monocytes # (Manual) 1.5 H Eosinophils # 0.3 Basophils # 0.1 Basophils # (Manual) 0.1 H Metamyelocytes # 0.1 H Myelocytes # 0.2 H Nucleated Red Blood Cells # 0.4 H Platelet Estimate NORMAL Polychromasia 3+ Hypochromasia 1+ Poikilocytosis 1+ Anisocytosis 1+ Microcytosis 2+ Sodium Level 136 Potassium Level 4.9 Chloride Level 101 Carbon Dioxide Level 29 Anion Gap 6 Blood Urea Nitrogen 88 H Creatinine 2.79 H Est Glomerular Filtrat Rate mL/min Glucose Level 155 Calcium Level 8.9 Phosphorus Level 6.1 #H Magnesium Level 3.1 H Total Bilirubin 0.1 L Direct Bilirubin 0.00 Indirect Bilirubin 0.1 Aspartate Amino Transf (AST/SGOT) 23 Alanine Aminotransferase (ALT/SGPT) 12 L Alkaline Phosphatase 74 Total Protein 7.3 Albumin 3.6 Globulin 3.70 H Albumin/Globulin Ratio 0.97 Hepatitis B Surface Antigen NEGATIVE Home Meds Reported Medications Sennosides* (Senna Lax*) 8.6 Mg Tablet, 1 TAB PO BID, TAB 11/16/18 Sevelamer Carbonate* (Renvela*) 0.8 Gm Powd.pack, 0.8 GM PO WITH MEALS, PACKET 11/16/18 Lansoprazole* (Lansoprazole*) 30 Mg Capsule.dr, 30 MG PO QAM, CAP 11/16/18 Hydralazine Hcl* (Hydralazine Hcl*) 25 Mg Tab, 25 MG PO Q8, #90 TAB 11/16/18 Ferrous Sulfate* (Ferrous Sulfate*) 325 Mg Tabec, 325 MG PO BID for anemia, TAB 11/16/18 Valproate Sodium (Valproic Acid) 250 Mg/5 Ml Solution, 250 MG PO Q8, ML 11/16/18 Insulin Aspart* (Novolog Insulin Pen*) 100 Unit/Ml Soln, 0 SC .SLIDING SCALE AC, EA IF BS 160-200=2 UNITS,201-250=4 UNITS,251-300=8 UNITS,301-350=12 UNITS;351-400=16 UNITS THEN CALL MD. 10/16/18 Ondansetron Hcl* (Zofran*) 4 Mg Tab, 4 MG GTB Q4H PRN for NAUSEA AND OR VOMITING, TAB 10/16/18 Linagliptin (TRADJENTA) 5 Mg Tablet, 5 MG GTB DAILY, TAB 10/16/18 Quetiapine Fumarate* (Seroquel*) 25 Mg Tablet, 25 MG GTB BID, #60 TAB 10/16/18 [Nephro-Roque] No Conflict Check, 0.8 MG GTB DAILY 10/16/18 Polyethylene Glycol* (Miralax*) 17 Gm Powd.pack, 17 GM GTB Q24H, #30 PACKET 10/16/18 Metoprolol Tartrate* (Lopressor*) 50 Mg Tab, 50 MG GTB DAILY, #60 TAB Q MON,WED,FRI,SUN,HOLD FOR SBP<110 OR DE<60 10/16/18 Metoprolol Tartrate* (Lopressor*) 50 Mg Tab, 50 MG GTB BID, #60 TAB QTUE,ANDREW,SAT,HOLD FOR SBP<110 OR DE<60 10/16/18 Linaclotide (LINZESS) 145 Mcg Capsule, 145 MCG GTB DAILY, #30 CAP 10/16/18 Ipratropium-Albuterol (Ipratropium-Albuterol) 0.5-3 Mg/3 Ml Ampul.neb, 3 ML INHALATION Q6, #30 VIAL FOR 14 DAYS,STOP DATE 10/17/18 10/16/18 Hydralazine Hcl* (Hydralazine Hcl*) 25 Mg Tab, 25 MG GTB DAILY, #60 TAB Q TUE,ANDREW,SAT,HOLD IF SBP<110 OR DE<60 10/16/18 Folic Acid* (Folic Acid*) 1 Mg Tablet, 1 MG GTB DAILY, TAB 10/16/18 Docusate Sodium* (Colace*) 100 Mg Capsule, 100 MG GTB DAILY, #30 CAP 10/16/18 Lorazepam* (Lorazepam*) 1 Mg Tablet, 1 MG GTB HS PRN for ANXIETY, #30 TAB Q TUE,ANDREW,SAT 10/16/18 Amlodipine Besylate* (Norvasc*) 5 Mg Tablet, 5 MG GTB BID, TAB TAKE Q TUE,ANDREW,SAT FOR HTN, HOLD FOR SBP<110 OR DE<60 10/16/18 Acetaminophen* (Acetaminophen*) 650 Mg Tablet, 650 MG GTB Q6H PRN for PAIN LEVEL 1-08/18, #30 TAB 10/16/18 Medications Current Medications IV Flush (NS 3 ml) 3 ml PER PROTOCOL IV ; Start 11/16/18 at 09:00 Ondansetron HCl (Zofran Inj) 4 mg Q6H PRN IV NAUSEA AND/OR VOMITING Last administered on 12/19/18at 05:53; Admin Dose 4 MG; Start 11/16/18 at 09:00 Magnesium Hydroxide (Milk Of Mag) 30 ml DAILY PRN PO CONSTIPATION; Start 11/16/18 at 09:00 Sodium Chloride (NS) -To prime the dialy... DIRECTED FOR HD PRN IV SBP<90; Start 11/16/18 at 15:00 Hydralazine HCl (Apresoline) 10 mg Q4H PRN IV ELEVATED BLOOD PRESSURE Last administered on 12/18/18at 23:33; Admin Dose 10 MG; Start 11/17/18 at 10:30 Acetaminophen/ Hydrocodone Bitart ([place] (5/325)) 1 tab Q3H PRN PO MODERATE PAIN LEVEL 4-6 Last administered on 12/06/18 15:38; Admin Dose 1 TAB; Start 11/17/18 at 14:30 Albumin Human 50 ml @ 100 mls/hr WITH DIALYSIS PRN IV SBP<90 Last administered on 12/13/18 11:03; Admin Dose 100 MLS/HR; Start 11/18/18 at 14:30 Morphine Sulfate (morphine) 6 mg Q4H PRN PO SEVERE PAIN LEVEL 7-10 Last administered on 12/13/18 21:31; Admin Dose 6 MG; Start 11/18/18 at 23:00 Docusate Sodium (Colace Liquid Cup) 100 mg DAILY GTB Last administered on 12/20/18 12:10; Admin Dose 100 MG; Start 11/19/18 at 09:30 Multivit/Ca Carb/ B Cmplx/FA/Prenat (Kianna-Roque) 1 tab DAILY GTB Last administered on 12/20/18 12:11; Admin Dose 1 TAB; Start 11/24/18 at 09:00 Lansoprazole (Prevacid) 30 mg DAILY GTB Last administered on 12/20/18 12:11; Admin Dose 30 MG; Start 11/26/18 at 09:00 Acetaminophen (Tylenol Supp) 650 mg Q4H PRN DE MILD PAIN(1-3) OR TEMP>38C Last administered on 11/26/18 08:32; Admin Dose 650 MG; Start 11/26/18 at 08:30 Epoetin Michael (Epogen (Esrd)) 4,000 units MoWeFr@17 SC Last administered on 12/20/18 17:31; Admin Dose 4,000 UNITS; Start 12/06/18 at 17:00 Hydralazine HCl (Apresoline) 50 mg Q8 PO Last administered on 12/20/18 14:16; Admin Dose 50 MG; Start 12/07/18 at 22:00 Sodium Chloride (NS) -To prime the dialy... DIRECTED FOR HD PRN IV HD; Start 12/07/18 at 17:30 Metoprolol Tartrate (Lopressor) 100 mg BID GTB Last administered on 12/20/18 12:14; Admin Dose 100 MG; Start 12/13/18 at 21:00 Aspirin (Halfprin) 81 mg DAILY PO Last administered on 12/20/18 12:11; Admin Dose 81 MG; Start 12/13/18 at 19:30 Senna (Senokot) 1 tab BID PO Last administered on 12/20/18 12:12; Admin Dose 1 TAB; Start 12/17/18 at 21:00 Acetaminophen (Tylenol Tab) 650 mg Q6H PRN PO PAIN LEVEL 1-3 OR FEVER; Start 12/17/18 at 15:00 Albuterol/ Ipratropium (Duoneb) 3 ml Q6H RESP THERAPY PRN HHN sob Last administered on 12/19/18 03:51; Admin Dose 3 ML; Start 12/17/18 at 09:00 Docusate Sodium (Colace) 100 mg Q12H PRN PO CONSTIPATION; Start 12/17/18 at 21:00 Ferrous Sulfate (Feosol Liquid Cup) 300 mg BID GTB Last administered on 12/20/18 12:10; Admin Dose 300 MG; Start 12/17/18 at 21:00 Guaifenesin/ Dextromethorphan (Robitussin Dm Liquid Cup) 5 ml Q4H PRN PO cough; Start 12/17/18 at 18:00 Linagliptin (Tradjenta) 5 mg DAILY GTB Last administered on 12/20/18 12:12; Admin Dose 5 MG; Start 12/17/18 at 09:00 Folic Acid (Folic Acid) 1 mg DAILY GTB Last administered on 12/20/18 12:10; Admin Dose 1 MG; Start 12/18/18 at 09:00 Vancomycin HCl (Vanco Iv Per Pharmacy) VANCOMYCIN PER PHARMACY PER PROTOCOL XX ; Start 12/19/18 at 09:30 Meropenem/Sodium Chloride 50 ml @ 100 mls/hr Q12 IVPB Last administered on 12/20/18 12:12; Admin Dose 100 MLS/HR; Start 12/19/18 at 11:00 Dextrose/Sodium Chloride 1,000 ml @ 30 mls/hr Q24H IV Last administered on 12/19/18 17:38; Admin Dose 30 MLS/HR; Start 12/19/18 at 16:00 Metoclopramide HCl (Reglan) 5 mg Q8 PRN IV VOMITTING; Start 12/20/18 at 10:00 Miscellaneous Information (*Rx Drug Level Order Reminder*) VANCOMYCIN RANDOM LEVEL 2... ONCE ONCE XX ; Start 12/21/18 at 05:00; Stop 12/21/18 at 05:01 Assessment/Plan Hospital Course (Demo Recall) Proximal atrial fibrillation rapid ventricular response: Currently back in sinus rhythm fungemia Right hand hematoma: Status post IND now Renal failure on dialysis Hypertension Dementia Anemia Possible GI bleed: Status post EGD AI Recommendations: transfusion with HD prn Patient is not a candidate for full anticoagulation due to the fall risk as well as anemia cont beta-farrah Dialysis as per renal team Neuro workup and treatment as per internal medicine Antibiotic as per ID and internal medicine asa for now and monitor Thank you for his referral. We will continue to follow along with you as needed basis CHRISTEN ESCOBEDO MD [facility] CHRISTEN ESCOBEDO MD Dec 20, 2018 18:12
--- NOTE | 2018-12-20 21:51 | ERD ---
ER Documentation Chief Complaint Chief Complaint RACHAEL RA from [place],Rt hand swelling & pain after dialysis last night HPI This is a very pleasant patient brought in from [facility] with right hand swelling and pain after dialysis last night. Patient herself is demented and can give very little history. History per EMS run sheet and [facility] transfer sheet. ROS All systems reviewed and are negative except as per history of present illness. Medications Home Meds Reported Medications Sennosides* (Senna Lax*) 8.6 Mg Tablet, 1 TAB PO BID, TAB 11/16/18 Sevelamer Carbonate* (Renvela*) 0.8 Gm Powd.pack, 0.8 GM PO WITH MEALS, PACKET 11/16/18 Lansoprazole* (Lansoprazole*) 30 Mg Capsule.dr, 30 MG PO QAM, CAP 11/16/18 Hydralazine Hcl* (Hydralazine Hcl*) 25 Mg Tab, 25 MG PO Q8, #90 TAB 11/16/18 Ferrous Sulfate* (Ferrous Sulfate*) 325 Mg Tabec, 325 MG PO BID for anemia, TAB 11/16/18 Valproate Sodium (Valproic Acid) 250 Mg/5 Ml Solution, 250 MG PO Q8, ML 11/16/18 Insulin Aspart* (Novolog Insulin Pen*) 100 Unit/Ml Soln, 0 SC .SLIDING SCALE AC, EA IF BS 160-200=2 UNITS,201-250=4 UNITS,251-300=8 UNITS,301-350=12 UNITS;351-400=16 UNITS THEN CALL MD. 10/16/18 Ondansetron Hcl* (Zofran*) 4 Mg Tab, 4 MG GTB Q4H PRN for NAUSEA AND OR VOMITING, TAB 10/16/18 Linagliptin (TRADJENTA) 5 Mg Tablet, 5 MG GTB DAILY, TAB 10/16/18 Quetiapine Fumarate* (Seroquel*) 25 Mg Tablet, 25 MG GTB BID, #60 TAB 10/16/18 [Nephro-Roque] No Conflict Check, 0.8 MG GTB DAILY 10/16/18 Polyethylene Glycol* (Miralax*) 17 Gm Powd.pack, 17 GM GTB Q24H, #30 PACKET 10/16/18 Metoprolol Tartrate* (Lopressor*) 50 Mg Tab, 50 MG GTB DAILY, #60 TAB Q THU,WED,FRI,SUN,HOLD FOR SBP<110 OR VA<60 10/16/18 Metoprolol Tartrate* (Lopressor*) 50 Mg Tab, 50 MG GTB BID, #60 TAB QTUE,ANDREW,SAT,HOLD FOR SBP<110 OR VA<60 10/16/18 Linaclotide (LINZESS) 145 Mcg Capsule, 145 MCG GTB DAILY, #30 CAP 10/16/18 Ipratropium-Albuterol (Ipratropium-Albuterol) 0.5-3 Mg/3 Ml Ampul.neb, 3 ML INHALATION Q6, #30 VIAL FOR 14 DAYS,STOP DATE 10/17/18 10/16/18 Hydralazine Hcl* (Hydralazine Hcl*) 25 Mg Tab, 25 MG GTB DAILY, #60 TAB Q TUE,ANDREW,SAT,HOLD IF SBP<110 OR VA<60 10/16/18 Folic Acid* (Folic Acid*) 1 Mg Tablet, 1 MG GTB DAILY, TAB 10/16/18 Docusate Sodium* (Colace*) 100 Mg Capsule, 100 MG GTB DAILY, #30 CAP 10/16/18 Lorazepam* (Lorazepam*) 1 Mg Tablet, 1 MG GTB HS PRN for ANXIETY, #30 TAB Q TUE,ANDREW,SAT 10/16/18 Amlodipine Besylate* (Norvasc*) 5 Mg Tablet, 5 MG GTB BID, TAB TAKE Q TUE,ANDREW,SAT FOR HTN, HOLD FOR SBP<110 OR VA<60 10/16/18 Acetaminophen* (Acetaminophen*) 650 Mg Tablet, 650 MG GTB Q6H PRN for PAIN LEVEL 1-10/10, #30 TAB 10/16/18 Allergies Allergies: Coded Allergies: No Known Allergy (Unverified , 10/16/18) PMhx/Soc History of Surgery: Yes (C SECTION,GT TUBE PLACEMENT) Anesthesia Reaction: No Hx 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 Disorder: Yes (DEMENTIA) Hx Respiratory Disorders: Yes (COPD) Hx Cardiac Disorders: Yes (HF) Hx Psychiatric Problems: Yes (DEMENTIA,AGITATION ,CONFUSED) Hx Miscellaneous Medical Probl: No Hx Alcohol Use: No Hx Substance Use: No Hx Tobacco Use: No Smoking Status: Never smoker Physical Exam Physical Exam Const: No acute distress Head: Atraumatic Eyes: Normal Conjunctiva ENT: Normal External Ears, Nose and Mouth. Neck: Full range of motion. No meningismus. Resp: Clear to auscultation bilaterally Cardio: Regular rate and rhythm, no murmurs Abd: Soft, non tender, non distended. Normal bowel sounds Skin: No petechiae or rashes Back: No midline or flank tenderness Ext: No cyanosis, or edema Neur: Awake and alert Psych: Normal Mood and Affect Result Diagram: 12/20/1853812/20/18538 Results 24 hrs Laboratory Tests Test 11/16/18 02:37 White Blood Count 10.1 10^3/ul Red Blood Count 2.82 10^6/ul Hemoglobin 7.9 g/dl Hematocrit 23.9 % Mean Corpuscular Volume 84.8 fl Mean Corpuscular Hemoglobin 28.0 pg Mean Corpuscular Hemoglobin Concent 33.1 g/dl Red Cell Distribution Width 14.9 % Platelet Count 241 10^3/UL Mean Platelet Volume 10.5 fl Immature Granulocytes % 0.500 % Neutrophils % 79.8 % Lymphocytes % 10.3 % Monocytes % 7.0 % Eosinophils % 2.2 % Basophils % 0.2 % Nucleated Red Blood Cells % 0.2 /100WBC Immature Granulocytes # 0.050 10^3/ul Neutrophils # 8.1 10^3/ul Lymphocytes # 1.0 10^3/ul Monocytes # 0.7 10^3/ul Eosinophils # 0.2 10^3/ul Basophils # 0.0 10^3/ul Nucleated Red Blood Cells # 0.0 10^3/ul Prothrombin Time 12.7 Sec Prothrombin Time Ratio 1.0 INR International Normalized Ratio 0.94 Activated Partial Thromboplast Time 117.6 Sec Sodium Level 134 mmol/L Potassium Level 3.9 mmol/L Chloride Level 97 mmol/L Carbon Dioxide Level 27 mmol/L Anion Gap 10 Blood Urea Nitrogen 19 mg/dl Creatinine 1.42 mg/dl Est Glomerular Filtrat Rate mL/min mL/min Glucose Level 195 mg/dl Calcium Level 8.8 mg/dl Total Bilirubin 0.7 mg/dl Direct Bilirubin 0.00 mg/dl Indirect Bilirubin 0.7 mg/dl Aspartate Amino Transf (AST/SGOT) 32 IU/L Alanine Aminotransferase (ALT/SGPT) 26 IU/L Alkaline Phosphatase 78 IU/L Total Protein 7.7 g/dl Albumin 4.0 g/dl Globulin 3.70 g/dl Albumin/Globulin Ratio 1.08 Lipase 343 U/L Current Medications Medications Dose Sig/Ricardo Start Time Status Last (Trade) Ordered Route PRN Stop Time Admin Dose Reason Admin Morphine 4 mg ONCE STAT 11/16/18 DC 11/16/18 Sulfate IV 03:11 11/16/18 03:25 (morphine) 03:14 Procedures/MDM EKG: Rate/Rhythm: Chest X-ray 1V Interpreted by me: Soft Tissue: No acute abnormalities Bones: No acute abnormalities Mediastinum/Cardiac Silhouette/Lungs: [No acute abnormalities] QRS, ST, T-waves: [No changes consistent w/ acute ischemia] Impression: [No evidence of ischemia or arrhythmia] Medical decision making: This is an 83-year-old female who comes in with right hand swelling. Evidence of cellulitis. Cultures pending. Antibiotic started. Admitted to publicity person physician Departure Diagnosis: Primary Impression: Cellulitis Site of cellulitis: unspecified site Qualified Codes: L03.90 - Cellulitis, unspecified Condition: Serious NICOLE KAUFMAN Dec 20, 2018 21:51
[2018-12-21] VITALS (11 sets, daily range): BP systolic 127–186; BP diastolic 58–107; PULSE 74–84; RESP 18–20
--- NOTE | 2018-12-21 07:53 | CONS ---
Assessment/Plan Assessment/Plan Hospital Course (Demo Recall) 83 yo female in ESRD on HD presents for melena and anemia and also found to have edematous Rt hand/wrist 1. UGIB manifested through melena and anemia -no melena noted or GI bleeding noted by nursing staff -RESOLVED 2. Anemia, acute on chronic, acute likely due to blood loss in rt hand -No evidence of active GI bleeding, consider etiology of blood loss anemia to be from hematoma in hand -Fe wnl, TIBC low, Ferritin, folate, b12 high, FOB neg -STABLE 3. ESRD on HD -Followed by nephrology 4. Hematoma of Rt hand and wrist -I and D drainage by Dr. Dean 11/17 -IMPROVED 5. Dysphagia -on tube feeds and pureed nectar for oral gratification -Tube feeds boluses QID 6. DM2 7. HTN 8. H/O diastolic dysfunction heart failure 9. S/P EGD 11/18 10. Moderate gastritis with no bleeding noted. 11. Hospital acquired pneumonia -improved 12. Yeast in blood cx -resolved 12. Emesis x 1 -resolved Gastric biopsy results: Stomach, biopsy: -- Antral and oxyntic mucosa showing minimal plasma cell infiltration and small focus of intestinal metaplasia. -- No Helicobacter pylori is identified in Giemsa stain (positive control concurrently reviewed). -- No evidence of dysplasia or malignancy. Plan: Give tube feeds boluses slowly If pt vomits again, Dr Baird may switch g tube to GJ tube FOB pending Reglan 5 mg prior to meals, low dose to due ESRD Continue present care Monitor HH closely and for active GI bleeding, Pt examined and plan of care discussed with Dr. Baird Consultation Date/Type/Reason Admit Date/Time Nov 16, 2018 at 05:51 Initial Consult Date 11/16/18 Requesting Provider: DYLON WALLS MD Date/Time of Note DATE: 12/21/18 TIME: 07:52 24 HR Interval Summary Free Text/Dictation Pt is alert today and confused per baseline. No vomiting. No abd pain. BM dark brown. Exam/Review of Systems Exam Vitals Vital Signs Date Temp Pulse Resp B/P (MAP) Pulse Ox O2 O2 Flow FiO2 Time Delivery Rate 12/21/18 98.8 84 19 133/58 98 07:28 (83) 12/21/18 3.0 04:26 12/20/18 Nasal 20:00 Cannula 2/10/19 21 03:51 Intake and Output 12/20/18 12/20/18 12/21/18 1515:00 23:00 07:00 IntakeIntake Total 330 ml 1097 ml OutputOutput Total 200 ml BalanceBalance -200 ml 330 ml 1097 ml Constitutional: alert Eyes: PERRL Respiratory: diminished breath sounds Cardiovascular: regular rate and rhythm Gastrointestinal: soft, non-tender Results Result Diagram: 12/21/18 0501 12/21/18 0500 Results 24hrs Laboratory Tests Test 12/21/18 01:19 12/21/18 05:00 12/21/18 05:01 Bedside Glucose 164 Sodium Level 135 Potassium Level 3.8 Chloride Level 97 Carbon Dioxide Level 27 Anion Gap 11 Blood Urea Nitrogen 43 #H Creatinine 1.83 H Est Glomerular Filtrat Rate mL/min Glucose Level 306 #H Calcium Level 8.4 White Blood Count 8.4 # Red Blood Count 2.90 L Hemoglobin 7.9 L Hematocrit 24.6 L Mean Corpuscular Volume 84.8 Mean Corpuscular Hemoglobin 27.2 L Mean Corpuscular Hemoglobin Concent 32.1 Red Cell Distribution Width 16.7 H Platelet Count 191 Mean Platelet Volume 12.3 H Immature Granulocytes % 4.200 H Neutrophils % 68.3 Lymphocytes % 8.9 L Monocytes % 13.5 H Eosinophils % 4.6 Basophils % 0.5 Nucleated Red Blood Cells % 1.8 H Immature Granulocytes # 0.350 H Neutrophils # 5.8 Lymphocytes # 0.8 Monocytes # 1.1 H Eosinophils # 0.4 Basophils # 0.0 Nucleated Red Blood Cells # 0.2 H Phosphorus Level 3.4 # Magnesium Level 2.4 Random Vancomycin Level < 5.0 Medications Medication Current Medications IV Flush (NS 3 ml) 3 ml PER PROTOCOL IV ; Start 11/16/18 at 09:00 Ondansetron HCl (Zofran Inj) 4 mg Q6H PRN IV NAUSEA AND/OR VOMITING Last administered on 12/19/18at 05:53; Admin Dose 4 MG; Start 11/16/18 at 09:00 Magnesium Hydroxide (Milk Of Mag) 30 ml DAILY PRN PO CONSTIPATION Last administered on 12/21/18at 05:01; Admin Dose 30 ML; Start 11/16/18 at 09:00 Sodium Chloride (NS) -To prime the dialy... DIRECTED FOR HD PRN IV SBP<90; Start 11/16/18 at 15:00 Hydralazine HCl (Apresoline) 10 mg Q4H PRN IV ELEVATED BLOOD PRESSURE Last administered on 12/18/18 23:33; Admin Dose 10 MG; Start 11/17/18 at 10:30 Acetaminophen/ Hydrocodone Bitart ([place] (5/325)) 1 tab Q3H PRN PO MODERATE PAIN LEVEL 4-6 Last administered on 12/06/18 15:38; Admin Dose 1 TAB; Start 11/17/18 at 14:30 Albumin Human 50 ml @ 100 mls/hr WITH DIALYSIS PRN IV SBP<90 Last administered on 12/13/18 11:03; Admin Dose 100 MLS/HR; Start 11/18/18 at 14:30 Morphine Sulfate (morphine) 6 mg Q4H PRN PO SEVERE PAIN LEVEL 7-10 Last admini stered on 12/13/18 21:31; Admin Dose 6 MG; Start 11/18/18 at 23:00 Docusate Sodium (Colace Liquid Cup) 100 mg DAILY GTB Last administered on 12/20/18 12:10; Admin Dose 100 MG; Start 11/19/18 at 09:30 Multivit/Ca Carb/ B Cmplx/FA/Prenat (Kianna-Roque) 1 tab DAILY GTB Last administered on 12/20/18 12:11; Admin Dose 1 TAB; Start 11/24/18 at 09:00 Lansoprazole (Prevacid) 30 mg DAILY GTB Last administered on 12/20/18 12:11; Admin Dose 30 MG; Start 11/26/18 at 09:00 Acetaminophen (Tylenol Supp) 650 mg Q4H PRN [place] MILD PAIN(1-3) OR TEMP>38C Last administered on 11/26/18 08:32; Admin Dose 650 MG; Start 11/26/18 at 08:30 Epoetin Michael (Epogen (Esrd)) 4,000 units MoWeFr@17 SC Last administered on 12/20/18 17:31; Admin Dose 4,000 UNITS; Start 12/06/18 at 17:00 Hydralazine HCl (Apresoline) 50 mg Q8 PO Last administered on 12/21/18 05:02; Admin Dose 50 MG; Start 12/07/18 at 22:00 Sodium Chloride (NS) -To prime the dialy... DIRECTED FOR HD PRN IV HD; Start 12/07/18 at 17:30 Metoprolol Tartrate (Lopressor) 100 mg BID GTB Last administered on 12/20/18 20:22; Admin Dose 100 MG; Start 12/13/18 at 21:00 Aspirin (Halfprin) 81 mg DAILY PO Last administered on 12/20/18 12:11; Admin Dose 81 MG; Start 12/13/18 at 19:30 Senna (Senokot) 1 tab BID PO Last administered on 12/20/18 20:22; Admin Dose 1 TAB; Start 12/17/18 at 21:00 Acetaminophen (Tylenol Tab) 650 mg Q6H PRN PO PAIN LEVEL 1-3 OR FEVER Last administered on 12/21/18 05:01; Admin Dose 650 MG; Start 12/17/18 at 15:00 Albuterol/ Ipratropium (Duoneb) 3 ml Q6H RESP THERAPY PRN HHN sob Last administered on 12/19/18 03:51; Admin Dose 3 ML; Start 12/17/18 at 09:00 Docusate Sodium (Colace) 100 mg Q12H PRN PO CONSTIPATION Last administered on 12/21/18 05:01; Admin Dose 100 MG; Start 12/17/18 at 21:00 Ferrous Sulfate (Feosol Liquid Cup) 300 mg BID GTB Last administered on 12/20/18 20:21; Admin Dose 300 MG; Start 12/17/18 at 21:00 Guaifenesin/ Dextromethorphan (Robitussin Dm Liquid Cup) 5 ml Q4H PRN PO cough; Start 12/17/18 at 18:00 Linagliptin (Tradjenta) 5 mg DAILY GTB Last administered on 12/20/18 12:12; Admin Dose 5 MG; Start 12/17/18 at 09:00 Folic Acid (Folic Acid) 1 mg DAILY GTB Last administered on 12/20/18 12:10; Admin Dose 1 MG; Start 12/18/18 at 09:00 Vancomycin HCl (Vanco Iv Per Pharmacy) VANCOMYCIN PER PHARMACY PER PROTOCOL XX ; Start 2/10/19 at 09:30 Meropenem/Sodium Chloride 50 ml @ 100 mls/hr Q12 IVPB Last administered on 12/20/18at 20:21; Admin Dose 100 MLS/HR; Start 12/19/18 at 11:00 Dextrose/Sodium Chloride 1,000 ml @ 30 mls/hr Q24H IV Last administered on 12/19/18at 17:38; Admin Dose 30 MLS/HR; Start 12/19/18 at 16:00 Metoclopramide HCl (Reglan) 5 mg Q8 PRN IV VOMITTING; Start 12/20/18 at 10:00 TONY VENCES Dec 21, 2018 07:53
[2018-12-21] MEDS: FERROUS SULFATE 60 MG/ML 5ML CUP GTB SCH ×2 (08:53→21:12)
[2018-12-21] MEDS: DOCUSATE SODIUM 10 MG/ML (10ML CUP) GTB SCH (08:53)
[2018-12-21] MEDS: LANSOPRAZOLE 30 MG CAP GTB SCH (08:54)
[2018-12-21] MEDS: FOLIC ACID 1 MG TAB GTB SCH (08:54)
[2018-12-21] MEDS: ASPIRIN (EC) 81 MG TAB PO SCH (08:54)
[2018-12-21] MEDS: METOPROLOL 50 MG TAB GTB SCH ×2 (08:55→21:22)
[2018-12-21] MEDS: MULTIVIT/CA CARB/B CMPLX/FA TAB GTB SCH (08:55)
[2018-12-21] MEDS: SENNA TAB PO SCH ×2 (08:55→21:12)
[2018-12-21] MEDS: MEROPENEM 500MG/50 ML (PMX) 50 ML IVPB SCH ×2 (08:56→21:24)
[2018-12-21] MEDS: LINAGLIPTIN 5 MG TABLET GTB SCH (08:56)
[2018-12-21] MEDS ORDERED: VANCOMYCIN 1 GM 250 ML IVPB ONE (09:00)
--- NOTE | 2018-12-21 11:08 | CONS ---
Assessment/Plan Assessment/Plan Hospital Course (Demo Recall) All noted, no acute events, looks comfortable no fevers overnight WBC today 8.4 Microbiology: Blood culture repeated on November 29 grew Dominique glabrata blood cultures since December 01 that were drawn from permacath negative blood culture on December 03 negative, urine culture growing C glabrata Indwelling: Left chest permacath, PEG Physical examination: Chronically ill-appearing elderly woman who is awake, confused, in no distress. Head atraumatic normocephalic. Neck is supple. Chest rise symmetrical breath sounds diminished bases. Heart: S1-S2. Abdomen soft bowel sounds present, right upper extremity Armani wrapped Assessment: 1. S/p Fungemia secondary to urinary tract infection 2. S/p pneumonia, possibly aspiration 3. Right hand hematoma, status post I&D 11/17/18 4. Status post VRE bacteremia/new Pcath 5. End-stage renal disease, hemodialysis dependent 6. Dementia 7. Failure to thrive 8. Diabetes 9. Anemia 10. S/p sepsis 11. P Afib Plan: Clinically stable, off abx, pending bdl cx repeated yesterday with HD and urine cx Consultation Date/Type/Reason Admit Date/Time Nov 16, 2018 at 05:51 Initial Consult Date 11/16/18 Type of Consult id Requesting Provider: DYLON WALLS MD Date/Time of Note DATE: 12/21/18 TIME: 11:07 Exam/Review of Systems Exam Vitals Vital Signs Date Temp Pulse Resp B/P (MAP) Pulse Ox O2 O2 Flow FiO2 Time Delivery Rate 12/21/18 3.0 10:20 12/21/18 Nasal 08:00 Cannula 12/21/18 84 08:00 12/21/18 98.8 19 133/58 98 07:28 (83) 12/19/18 03:51 Intake and Output 12/20/18 12/20/18 12/21/18 1414:59 22:59 06:59 IntakeIntake Total 330 ml 1097 ml OutputOutput Total 200 ml BalanceBalance -200 ml 330 ml 1097 ml Results Result Diagram: 12/21/18 0501 12/21/18 0500 Results 24hrs Laboratory Tests Test 12/21/18 01:19 12/21/18 05:00 12/21/18 05:01 Bedside Glucose 164 Sodium Level 135 Potassium Level 3.8 Chloride Level 97 Carbon Dioxide Level 27 Anion Gap 11 Blood Urea Nitrogen 43 #H Creatinine 1.83 H Est Glomerular Filtrat Rate mL/min Glucose Level 306 #H Calcium Level 8.4 White Blood Count 8.4 # Red Blood Count 2.90 L Hemoglobin 7.9 L Hematocrit 24.6 L Mean Corpuscular Volume 84.8 Mean Corpuscular Hemoglobin 27.2 L Mean Corpuscular Hemoglobin Concent 32.1 Red Cell Distribution Width 16.7 H Platelet Count 191 Mean Platelet Volume 12.3 H Immature Granulocytes % 4.200 H Neutrophils % 68.3 Lymphocytes % 8.9 L Monocytes % 13.5 H Eosinophils % 4.6 Basophils % 0.5 Nucleated Red Blood Cells % 1.8 H Immature Granulocytes # 0.350 H Neutrophils # 5.8 Lymphocytes # 0.8 Monocytes # 1.1 H Eosinophils # 0.4 Basophils # 0.0 Nucleated Red Blood Cells # 0.2 H Phosphorus Level 3.4 # Magnesium Level 2.4 Random Vancomycin Level < 5.0 Medications Medication Current Medications IV Flush (NS 3 ml) 3 ml PER PROTOCOL IV ; Start 11/16/18 at 09:00 Ondansetron HCl (Zofran Inj) 4 mg Q6H PRN IV NAUSEA AND/OR VOMITING Last administered on 12/19/18 05:53; Admin Dose 4 MG; Start 11/16/18 at 09:00 Magnesium Hydroxide (Milk Of Mag) 30 ml DAILY PRN PO CONSTIPATION Last administered on 12/21/18 05:01; Admin Dose 30 ML; Start 11/16/18 at 09:00 Sodium Chloride (NS) -To prime the dialy... DIRECTED FOR HD PRN IV SBP<90; Start 11/16/18 at 15:00 Hydralazine HCl (Apresoline) 10 mg Q4H PRN IV ELEVATED BLOOD PRESSURE Last administered on 12/18/18 23:33; Admin Dose 10 MG; Start 11/17/18 at 10:30 Acetaminophen/ Hydrocodone Bitart ([place] (5/325)) 1 tab Q3H PRN PO MODERATE PAIN LEVEL 4-6 Last administered on 12/06/18 15:38; Admin Dose 1 TAB; Start 11/17/18 at 14:30 Albumin Human 50 ml @ 100 mls/hr WITH DIALYSIS PRN IV SBP<90 Last administered on 12/13/18 11:03; Admin Dose 100 MLS/HR; Start 11/18/18 at 14:30 Morphine Sulfate (morphine) 6 mg Q4H PRN PO SEVERE PAIN LEVEL 7-10 Last administered on 12/13/18 21:31; Admin Dose 6 MG; Start 11/18/18 at 23:00 Docusate Sodium (Colace Liquid Cup) 100 mg DAILY GTB Last administered on 12/21/18 08:53; Admin Dose 100 MG; Start 11/19/18 at 09:30 Multivit/Ca Carb/ B Cmplx/FA/Prenat (Kianna-Roque) 1 tab DAILY GTB Last administered on 12/21/18 08:55; Admin Dose 1 TAB; Start 11/24/18 at 09:00 Lansoprazole (Prevacid) 30 mg DAILY GTB Last administered on 12/21/18 08:54; Admin Dose 30 MG; Start 11/26/18 at 09:00 Acetaminophen (Tylenol Supp) 650 mg Q4H PRN [place] MILD PAIN(1-3) OR TEMP>38C Last administered on 11/26/18 08:32; Admin Dose 650 MG; Start 11/26/18 at 08:30 Epoetin Michael (Epogen (Esrd)) 4,000 units MoWeFr@17 SC Last administered on 12/20/18 17:31; Admin Dose 4,000 UNITS; Start 12/06/18 at 17:00 Hydralazine HCl (Apresoline) 50 mg Q8 PO Last administered on 12/21/18 05:02; Admin Dose 50 MG; Start 12/07/18 at 22:00 Sodium Chloride (NS) -To prime the dialy... DIRECTED FOR HD PRN IV HD; Start 12/07/18 at 17:30 Metoprolol Tartrate (Lopressor) 100 mg BID GTB Last administered on 12/21/18 08:55; Admin Dose 100 MG; Start 12/13/18 at 21:00 Aspirin (Halfprin) 81 mg DAILY PO Last administered on 12/21/18 08:54; Admin Dose 81 MG; Start 12/13/18 at 19:30 Senna (Senokot) 1 tab BID PO Last administered on 12/21/18 08:55; Admin Dose 1 TAB; Start 12/17/18 at 21:00 Acetaminophen (Tylenol Tab) 650 mg Q6H PRN PO PAIN LEVEL 1-3 OR FEVER Last administered on 12/21/18 05:01; Admin Dose 650 MG; Start 12/17/18 at 15:00 Albuterol/ Ipratropium (Duoneb) 3 ml Q6H RESP THERAPY PRN HHN sob Last admin istered on 12/19/18 03:51; Admin Dose 3 ML; Start 12/17/18 at 09:00 Docusate Sodium (Colace) 100 mg Q12H PRN PO CONSTIPATION Last administered on 12/21/18 05:01; Admin Dose 100 MG; Start 12/17/18 at 21:00 Ferrous Sulfate (Feosol Liquid Cup) 300 mg BID GTB Last administered on 12/21/18 08:53; Admin Dose 300 MG; Start 12/17/18 at 21:00 Guaifenesin/ Dextromethorphan (Robitussin Dm Liquid Cup) 5 ml Q4H PRN PO cough; Start 12/17/18 at 18:00 Linagliptin (Tradjenta) 5 mg DAILY GTB Last administered on 12/21/18 08:56; Admin Dose 5 MG; Start 12/17/18 at 09:00 Folic Acid (Folic Acid) 1 mg DAILY GTB Last administered on 12/21/18 08:54; Admin Dose 1 MG; Start 12/18/18 at 09:00 Vancomycin HCl (Vanco Iv Per Pharmacy) VANCOMYCIN PER PHARMACY PER PROTOCOL XX ; Start 12/19/18 at 09:30 Meropenem/Sodium Chloride 50 ml @ 100 mls/hr Q12 IVPB Last administered on 12/21/18 08:56; Admin Dose 100 MLS/HR; Start 12/19/18 at 11:00 Dextrose/Sodium Chloride 1,000 ml @ 30 mls/hr Q24H IV Last administered on 12/19/18 17:38; Admin Dose 30 MLS/HR; Start 12/19/18 at 16:00 Metoclopramide HCl (Reglan) 5 mg Q8 PRN IV VOMITTING; Start 12/20/18 at 10:00 PHYLICIA HOLCOMB NP Dec 21, 2018 11:08
--- NOTE | 2018-12-21 13:07 | CONS ---
Assessment/Plan Assessment/Plan Hospital Course (Demo Recall) 83 y/o with Hospital Course (Demo Recall) 1. End-stage renal disease on hemodialysis. 2. Gastrointestinal bleed with melena.resolved 3. Hypertension. 4. Diabetes. 5. Right hand swelling, s/p I and D on 11/17/18 6. History of falls. 7. Vascular dementia. 8. History of sepsis with VRE. 9. Dysphagia, status post G-tube. 10. History of hip fracture. 11. Thrombocytopenia. 12. Atherosclerotic heart disease. 13. Pneumonia left side 14. Anemia 15 YEAST BACTERIMIA LIKELY DUE TO UTI 16 Paroxsymal AFib now in sinus Assessment/Plan (Daily) - Hd MWF - cw with permacath -avoid nephrotoxic drugs -HD MWFr -c/w epogen - Aspiration precautions Consultation Date/Type/Reason Admit Date/Time Nov 16, 2018 at 05:51 Initial Consult Date 11/16/18 Requesting Provider: DYLON WALLS MD Date/Time of Note DATE: 12/21/18 TIME: 13:06 24 HR Interval Summary Free Text/Dictation More awake today. Status post HD yesterday Exam/Review of Systems Exam Vitals Vital Signs Date Temp Pulse Resp B/P (MAP) Pulse Ox O2 O2 Flow FiO2 Time Delivery Rate 12/21/18 98.1 75 19 157/83 98 11:20 (107) 12/21/18 3.0 10:20 12/21/18 Nasal 08:00 Cannula 12/19/18 21 03:51 Intake and Output 12/20/18 12/20/18 12/21/18 1414:59 22:59 06:59 IntakeIntake Total 330 ml 1097 ml OutputOutput Total 200 ml BalanceBalance -200 ml 330 ml 1097 ml Exam Exam eft chest Permcath Constitutional: frail Psych: confusion Cardiovascular: regular rate and rhythm Gastrointestinal: soft, other (g tube) Skin: ecchymosis, laceration Results Result Diagram: 12/21/18 0501 12/21/18 0500 Results 24hrs Laboratory Tests Test 12/21/18 01:19 12/21/18 05:00 12/21/18 05:01 Bedside Glucose 164 Sodium Level 135 Potassium Level 3.8 Chloride Level 97 Carbon Dioxide Level 27 Anion Gap 11 Blood Urea Nitrogen 43 #H Creatinine 1.83 H Est Glomerular Filtrat Rate mL/min Glucose Level 306 #H Calcium Level 8.4 White Blood Count 8.4 # Red Blood Count 2.90 L Hemoglobin 7.9 L Hematocrit 24.6 L Mean Corpuscular Volume 84.8 Mean Corpuscular Hemoglobin 27.2 L Mean Corpuscular Hemoglobin Concent 32.1 Red Cell Distribution Width 16.7 H Platelet Count 191 Mean Platelet Volume 12.3 H Immature Granulocytes % 4.200 H Neutrophils % 68.3 Lymphocytes % 8.9 L Monocytes % 13.5 H Eosinophils % 4.6 Basophils % 0.5 Nucleated Red Blood Cells % 1.8 H Immature Granulocytes # 0.350 H Neutrophils # 5.8 Lymphocytes # 0.8 Monocytes # 1.1 H Eosinophils # 0.4 Basophils # 0.0 Nucleated Red Blood Cells # 0.2 H Phosphorus Level 3.4 # Magnesium Level 2.4 Random Vancomycin Level < 5.0 Medications Medication Current Medications IV Flush (NS 3 ml) 3 ml PER PROTOCOL IV ; Start 11/16/18 at 09:00 Ondansetron HCl (Zofran Inj) 4 mg Q6H PRN IV NAUSEA AND/OR VOMITING Last admi nistered on 12/19/18 05:53; Admin Dose 4 MG; Start 11/16/18 at 09:00 Magnesium Hydroxide (Milk Of Mag) 30 ml DAILY PRN PO CONSTIPATION Last administered on 12/21/18 05:01; Admin Dose 30 ML; Start 11/16/18 at 09:00 Sodium Chloride (NS) -To prime the dialy... DIRECTED FOR HD PRN IV SBP<90; Start 11/16/18 at 15:00 Hydralazine HCl (Apresoline) 10 mg Q4H PRN IV ELEVATED BLOOD PRESSURE Last administered on 12/18/18 23:33; Admin Dose 10 MG; Start 11/17/18 at 10:30 Acetaminophen/ Hydrocodone Bitart ([place] (5/325)) 1 tab Q3H PRN PO MODERATE PAIN LEVEL 4-6 Last administered on 12/06/18at 15:38; Admin Dose 1 TAB; Start 11/17/18 at 14:30 Albumin Human 50 ml @ 100 mls/hr WITH DIALYSIS PRN IV SBP<90 Last administered on 12/13/18 11:03; Admin Dose 100 MLS/HR; Start 11/18/18 at 14:30 Morphine Sulfate (morphine) 6 mg Q4H PRN PO SEVERE PAIN LEVEL 7-10 Last administered on 12/13/18 21:31; Admin Dose 6 MG; Start 11/18/18 at 23:00 Docusate Sodium (Colace Liquid Cup) 100 mg DAILY GTB Last administered on 12/21/18 08:53; Admin Dose 100 MG; Start 11/19/18 at 09:30 Multivit/Ca Carb/ B Cmplx/FA/Prenat (Kianna-Roque) 1 tab DAILY GTB Last administered on 12/21/18 08:55; Admin Dose 1 TAB; Start 11/24/18 at 09:00 Lansoprazole (Prevacid) 30 mg DAILY GTB Last administered on 12/21/18 08:54; Admin Dose 30 MG; Start 11/26/18 at 09:00 Acetaminophen (Tylenol Supp) 650 mg Q4H PRN [place] MILD PAIN(1-3) OR TEMP>38C Last administered on 11/26/18 08:32; Admin Dose 650 MG; Start 11/26/18 at 08:30 Epoetin Michael (Epogen (Esrd)) 4,000 units MoWeFr@17 SC Last administered on 12/20/18 17:31; Admin Dose 4,000 UNITS; Start 12/06/18 at 17:00 Hydralazine HCl (Apresoline) 50 mg Q8 PO Last administered on 12/21/18 13:03; Admin Dose 50 MG; Start 12/07/18 at 22:00 Sodium Chloride (NS) -To prime the dialy... DIRECTED FOR HD PRN IV HD; Start 12/07/18 at 17:30 Metoprolol Tartrate (Lopressor) 100 mg BID GTB Last administered on 12/21/18 08:55; Admin Dose 100 MG; Start 12/13/18 at 21:00 Aspirin (Halfprin) 81 mg DAILY PO Last administered on 12/21/18 08:54; Admin Dose 81 MG; Start 12/13/18 at 19:30 Senna (Senokot) 1 tab BID PO Last administered on 12/21/18 08:55; Admin Dose 1 TAB; Start 12/17/18 at 21:00 Acetaminophen (Tylenol Tab) 650 mg Q6H PRN PO PAIN LEVEL 1-3 OR FEVER Last administered on 12/21/18 05:01; Admin Dose 650 MG; Start 12/17/18 at 15:00 Albuterol/ Ipratropium (Duoneb) 3 ml Q6H RESP THERAPY PRN HHN sob Last administered on 12/19/18 03:51; Admin Dose 3 ML; Start 12/17/18 at 09:00 Docusate Sodium (Colace) 100 mg Q12H PRN PO CONSTIPATION Last administered on 12/21/18 05:01; Admin Dose 100 MG; Start 12/17/18 at 21:00 Ferrous Sulfate (Feosol Liquid Cup) 300 mg BID GTB Last administered on 12/21/18 08:53; Admin Dose 300 MG; Start 12/17/18 at 21:00 Guaifenesin/ Dextromethorphan (Robitussin Dm Liquid Cup) 5 ml Q4H PRN PO cough; Start 12/17/18 at 18:00 Linagliptin (Tradjenta) 5 mg DAILY GTB Last administered on 12/21/18 08:56; Admin Dose 5 MG; Start 12/17/18 at 09:00 Folic Acid (Folic Acid) 1 mg DAILY GTB Last administered on 12/21/18 08:54; Admin Dose 1 MG; Start 12/18/18 at 09:00 Vancomycin HCl (Vanco Iv Per Pharmacy) VANCOMYCIN PER PHARMACY PER PROTOCOL XX ; Start 12/19/18 at 09:30 Meropenem/Sodium Chloride 50 ml @ 100 mls/hr Q12 IVPB Last administered on 12/21/18 08:56; Admin Dose 100 MLS/HR; Start 12/19/18 at 11:00 Dextrose/Sodium Chloride 1,000 ml @ 30 mls/hr Q24H IV Last administered on 12/19/18 17:38; Admin Dose 30 MLS/HR; Start 12/19/18 at 16:00 Metoclopramide HCl (Reglan) 5 mg Q8 PRN IV VOMITTING; Start 12/20/18 at 10:00 JOSE RAUL ANDREWS MD Dec 21, 2018 13:07
--- NOTE | 2018-12-21 14:23 | PN ---
DATE: 12/21/2018 SUBJECTIVE: The patient was seen. She appears to be awake, alert. She says 1 or 2 words. She appe ars much more comfortable today, more alert. OBJECTIVE: VITAL SIGNS: The patient's T-max was 99.8 this morning. GENERAL: No acute distress. HEENT: Normocephalic, atraumatic. Pale. CARDIOVASCULAR: S1, S2. Regular rate. LUNGS: Clear. ABDOMEN: Soft, nontender. EXTREMITIES: No clubbing, cyanosis or edema. LABORATORY DATA: White count normalized to 8.4, hemoglobin 7.9, hematocrit 25, platelet count of 191 , neutrophils 68%, lymphocytes 19%. Chemistry: Sodium 135, potassium 3.8, chloride 97, bicarbonate 27, BUN is 43, creatinine 1.83 and glucose was high at 306. Urine culture shows yeast. Blood cultur e dated 12/20/2018 was negative. Blood culture on 12/18/2018 was negative. MEDICATIONS: 1. Reglan 5 mg q.8. 2. D5 half normal saline at 30 mL an hour. 3. Merrem IV q.12. 4. Vancomycin dose per pharmacy. 5. Folic acid 1 mg daily. 6. Senna b.i.d. 7. Colace p.r.n. 8. Ferrous sulfate 300 b.i.d. 9. Tylenol p.r.n. 10. DuoNeb as directed. 11. Tradjenta 5 mg daily. 12. Lopressor 100 b.i.d. 13. Aspirin 81 mg daily. 14. Hydralazine 50 q.8. 15. Epogen 3 times a week. 16. Prevacid 30 mg daily. 17. Tylenol p.r.n. 18. Kianna-Roque 1 tab daily. 19. Colace 100 daily. 20. Morphine p.r.n. 21. [place] p.r.n. 22. Hydralazine p.r.n. 23. Zofran as needed. 24. Milk of Magnesia p.r.n. ASSESSMENT AND PLAN: This is an 83-year-old Ethiopian female with end-stage renal disease, advanced d ementia, cerebrovascular accident, chronic obstructive pulmonary disease, status post evacuation of r ight hand hematoma, status post treatment for line sepsis, bacteremia, fungemia, urinary tract infect ion recently with worsening mental status likely due to aspiration pneumonia. 1. Respiratory. Continue treatment for aspiration pneumonia with broad spectrum antibiotics with va ncomycin and Merrem. White count is now normal. 2. Cardiovascular. Continue beta blockers. The patient with paroxysmal atrial fibrillation. 3. Anemia. May consider transfusion. H and H overall is stable. Continue Epogen for now. 4. End-stage renal disease. Dialysis 3 times a week. Next dialysis is tomorrow. 5. Diabetes mellitus. Sugar is slightly high, likely due to D5. 6. Dysphagia. We will consider starting the patient back on feeding, but we will do instead of bolu s feeding, continuous feeding as patient may be able to tolerate it better as low volume provides angela jacqui period of time. 7. Advanced dementia with poor quality of life, remains full code. 8. A 1:1 sitter as patient has risk of fall. I appreciate all the above consultants. Clinically improving today. We will follow. Dictated By: DYLON HULL/MADAN Conf#: [id number] DID#: [id number] CC: CHRISS WELCH MD;*EndCC*
[2018-12-21] MEDS: hydrALAzine 20 MG INJ IV PRN (15:30)
--- NOTE | 2018-12-21 15:51 | CONS ---
Consult Date/Type/Reason Admit Date/Time Nov 16, 2018 at 05:51 Initial Consult Date 11/16/18 Type of Consultation: cv Requesting Provider: DYLON WALLS MD Date/Time of Note DATE: 12/21/18 TIME: 15:50 Subjective Cardiology follow up note Sl DW/ Staff and telemetry was reviewed. Patient has remained in normal sinus rhythm now Patient is less lethargic today. However continues to be confused no report of any chest pain or pressure or palpitations but pt is a very poor historian Events noted. 12/13/18: Patient went into atrial fibrillation rapid ventricular response during hemodialysis . Patient has been transferred to telemetry and converted back to sinus rhythm remains in sinus rhythm s/p I/D 11/17 EGD 11.18.18 O: General: Elderly frail male in no acute distress HEENT: NC/AT. Eyes are closed NECK: NO JVD. no stridor. CV: RRR. systolic murmur; no gallop or rubs. PULM: no wheezing or rhonchi. GI: SOFT, NT, ND, no rebound or guarding neuro: Awake Psych: confused rectal: deferred CXR 11/22: 1. Left lung interstitial opacities may reflect edema or pneumonia. Findings are new when compared to the prior examination. 2. Mild cardiomegaly and aortic atherosclerosis. 3. Left chest Perma-Cath with tip in the lower SVC. review of old chart shows ECHO done Oct 2018: Normal left ventricular systolic function. Normal left ventricular cavity size. Moderate concentric left ventricular hypertrophy. Ejection fraction is visually estimated at 65 %. Abnormal Diastolic Function. Mitral valve leaflets appear moderately thickened. Moderate mitral annular calcification. Trace mitral regurgitation. Aortic valve not well visualized. No hemodynamically significant aortic stenosis by doppler. Aortic sclerosis without significant stenosis. Aortic cusps appear mildly calcified. Mild to moderate aortic valve regurgi tation. Estimated peak PA systolic pressure 40 mmHg. Tricuspid valve appears moderately thickened. There is mild tricuspid regurg Objective Vitals Vital Signs Date Temp Pulse Resp B/P (MAP) Pulse Ox O2 O2 Flow FiO2 Time Delivery Rate 12/21/18 98.4 75 19 170/73 98 15:20 (105) 12/21/18 3.0 10:20 12/21/18 Nasal 08:00 Cannula 12/19/18 21 03:51 Intake and Output 12/20/18 12/20/1812/21/19 1515:00 23:00 07:00 IntakeIntake Total 330 ml 1097 ml OutputOutput Total 200 ml BalanceBalance -200 ml 330 ml 1097 ml Results/Medications Result Diagram: 12/21/18 0501 12/21/18 0500 Results 24 hrs Laboratory Tests Test 12/21/18 01:19 12/21/18 05:00 12/21/18 05:01 12/21/18 07:40 Bedside Glucose 164 Sodium Level 135 Potassium Level 3.8 Chloride Level 97 Carbon Dioxide Level 27 Anion Gap 11 Blood Urea Nitrogen 43 #H Creatinine 1.83 H Est Glomerular Filtrat Rate mL/min Glucose Level 306 #H Calcium Level 8.4 White Blood Count 8.4 # Red Blood Count 2.90 L Hemoglobin 7.9 L Hematocrit 24.6 L Mean Corpuscular 84.8 Volume Mean Corpuscular 27.2 L Hemoglobin Mean Corpuscular 32.1 Hemoglobin Concent Red Cell 16.7 H Distribution Width Platelet Count 191 Mean Platelet Volume 12.3 H Immature 4.200 H Granulocytes % Neutrophils % 68.3 Lymphocytes % 8.9 L Monocytes % 13.5 H Eosinophils % 4.6 Basophils % 0.5 Nucleated Red Blood 1.8 H Cells % Immature 0.350 H Granulocytes # Neutrophils # 5.8 Lymphocytes # 0.8 Monocytes # 1.1 H Eosinophils # 0.4 Basophils # 0.0 Nucleated Red Blood 0.2 H Cells # Phosphorus Level 3.4 # Magnesium Level 2.4 Random Vancomycin < 5.0 Level Stool Occult Blood NEGATIVE Home Meds Reported Medications Sennosides* (Senna Lax*) 8.6 Mg Tablet, 1 TAB PO BID, TAB 11/16/18 Sevelamer Carbonate* (Renvela*) 0.8 Gm Powd.pack, 0.8 GM PO WITH MEALS, PACKET 11/16/18 Lansoprazole* (Lansoprazole*) 30 Mg Capsule.dr, 30 MG PO QAM, CAP 11/16/18 Hydralazine Hcl* (Hydralazine Hcl*) 25 Mg Tab, 25 MG PO Q8, #90 TAB 11/16/18 Ferrous Sulfate* (Ferrous Sulfate*) 325 Mg Tabec, 325 MG PO BID for anemia, TAB 11/16/18 Valproate Sodium (Valproic Acid) 250 Mg/5 Ml Solution, 250 MG PO Q8, ML 11/16/18 Insulin Aspart* (Novolog Insulin Pen*) 100 Unit/Ml Soln, 0 SC .SLIDING SCALE AC, EA IF BS 160-200=2 UNITS,201-250=4 UNITS,251-300=8 UNITS,301-350=12 UNITS;351-400=16 UNITS THEN CALL . 10/16/18 Ondansetron Hcl* (Zofran*) 4 Mg Tab, 4 MG GTB Q4H PRN for NAUSEA AND OR VOMITING, TAB 10/16/18 Linagliptin (TRADJENTA) 5 Mg Tablet, 5 MG GTB DAILY, TAB 10/16/18 Quetiapine Fumarate* (Seroquel*) 25 Mg Tablet, 25 MG GTB BID, #60 TAB 10/16/18 [Nephro-Roque] No Conflict Check, 0.8 MG GTB DAILY 10/16/18 Polyethylene Glycol* (Miralax*) 17 Gm Powd.pack, 17 GM GTB Q24H, #30 PACKET 10/16/18 Metoprolol Tartrate* (Lopressor*) 50 Mg Tab, 50 MG GTB DAILY, #60 TAB Q MON,WED,FRI,SUN,HOLD FOR SBP<110 OR DE<60 10/16/18 Metoprolol Tartrate* (Lopressor*) 50 Mg Tab, 50 MG GTB BID, #60 TAB QTUE,ANDREW,SAT,HOLD FOR SBP<110 OR DE<60 10/16/18 Linaclotide (LINZESS) 145 Mcg Capsule, 145 MCG GTB DAILY, #30 CAP 10/16/18 Ipratropium-Albuterol (Ipratropium-Albuterol) 0.5-3 Mg/3 Ml Ampul.neb, 3 ML INHALATION Q6, #30 VIAL FOR 14 DAYS,STOP DATE 10/17/18 10/16/18 Hydralazine Hcl* (Hydralazine Hcl*) 25 Mg Tab, 25 MG GTB DAILY, #60 TAB Q TUE,ANDREW,SAT,HOLD IF SBP<110 OR DE<60 10/16/18 Folic Acid* (Folic Acid*) 1 Mg Tablet, 1 MG GTB DAILY, TAB 10/16/18 Docusate Sodium* (Colace*) 100 Mg Capsule, 100 MG GTB DAILY, #30 CAP 10/16/18 Lorazepam* (Lorazepam*) 1 Mg Tablet, 1 MG GTB HS PRN for ANXIETY, #30 TAB Q TUE,ANDREW,SAT 10/16/18 Amlodipine Besylate* (Norvasc*) 5 Mg Tablet, 5 MG GTB BID, TAB TAKE Q TUE,ANDREW,SAT FOR HTN, HOLD FOR SBP<110 OR DE<60 10/16/18 Acetaminophen* (Acetaminophen*) 650 Mg Tablet, 650 MG GTB Q6H PRN for PAIN LEVEL 1-08/18, #30 TAB 10/16/18 Medications Current Medications IV Flush (NS 3 ml) 3 ml PER PROTOCOL IV ; Start 11/16/18 at 09:00 Ondansetron HCl (Zofran Inj) 4 mg Q6H PRN IV NAUSEA AND/OR VOMITING Last administered on 12/19/18 05:53; Admin Dose 4 MG; Start 11/16/18 at 09:00 Magnesium Hydroxide (Milk Of Mag) 30 ml DAILY PRN PO CONSTIPATION Last administered on 12/21/18 05:01; Admin Dose 30 ML; Start 11/16/18 at 09:00 Sodium Chloride (NS) -To prime the dialy... DIRECTED FOR HD PRN IV SBP<90; Start 11/16/18 at 15:00 Hydralazine HCl (Apresoline) 10 mg Q4H PRN IV ELEVATED BLOOD PRESSURE Last administered on 12/21/18 15:30; Admin Dose 10 MG; Start 11/17/18 at 10:30 Acetaminophen/ Hydrocodone Bitart ([place] (5/325)) 1 tab Q3H PRN PO MODERATE PAIN LEVEL 4-6 Last administered on 12/06/18at 15:38; Admin Dose 1 TAB; Start 11/17/18 at 14:30 Albumin Human 50 ml @ 100 mls/hr WITH DIALYSIS PRN IV SBP<90 Last administered on 12/13/18 11:03; Admin Dose 100 MLS/HR; Start 11/18/18 at 14:30 Morphine Sulfate (morphine) 6 mg Q4H PRN PO SEVERE PAIN LEVEL 7-10 Last admin istered on 12/13/18 21:31; Admin Dose 6 MG; Start 11/18/18 at 23:00 Docusate Sodium (Colace Liquid Cup) 100 mg DAILY GTB Last administered on 12/21/18 08:53; Admin Dose 100 MG; Start 11/19/18 at 09:30 Multivit/Ca Carb/ B Cmplx/FA/Prenat ([place]ianna-Roque) 1 tab DAILY GTB Last administered on 12/21/18 08:55; Admin Dose 1 TAB; Start 11/24/18 at 09:00 Lansoprazole (Prevacid) 30 mg DAILY GTB Last administered on 12/21/18 08:54; Admin Dose 30 MG; Start 11/26/18 at 09:00 Acetaminophen (Tylenol Supp) 650 mg Q4H PRN [place] MILD PAIN(1-3) OR TEMP>38C Last administered on 11/26/18 08:32; Admin Dose 650 MG; Start 11/26/18 at 08:30 Epoetin Michael (Epogen (Esrd)) 4,000 units MoWeFr@17 SC Last administered on 12/20/18 17:31; Admin Dose 4,000 UNITS; Start 12/06/18 at 17:00 Hydralazine HCl (Apresoline) 50 mg Q8 PO Last administered on 12/21/18 13:03; Admin Dose 50 MG; Start 12/07/18 at 22:00 Sodium Chloride (NS) -To prime the dialy... DIRECTED FOR HD PRN IV HD; Start 12/07/18 at 17:30 Metoprolol Tartrate (Lopressor) 100 mg BID GTB Last administered on 12/21/18 08:55; Admin Dose 100 MG; Start 12/13/18 at 21:00 Aspirin (Halfprin) 81 mg DAILY PO Last administered on 12/21/18 08:54; Admin Dose 81 MG; Start 12/13/18 at 19:30 Senna (Senokot) 1 tab BID PO Last administered on 12/21/18 08:55; Admin Dose 1 TAB; Start 12/17/18 at 21:00 Acetaminophen (Tylenol Tab) 650 mg Q6H PRN PO PAIN LEVEL 1-3 OR FEVER Last administered on 12/21/18 05:01; Admin Dose 650 MG; Start 12/17/18 at 15:00 Albuterol/ Ipratropium (Duoneb) 3 ml Q6H RESP THERAPY PRN HHN sob Last administered on 12/19/18 03:51; Admin Dose 3 ML; Start 12/17/18 at 09:00 Docusate Sodium (Colace) 100 mg Q12H PRN PO CONSTIPATION Last administered on 12/21/18 05:01; Admin Dose 100 MG; Start 12/17/18 at 21:00 Ferrous Sulfate (Feosol Liquid Cup) 300 mg BID GTB Last administered on 12/21/18 08:53; Admin Dose 300 MG; Start 12/17/18 at 21:00 Guaifenesin/ Dextromethorphan (Robitussin Dm Liquid Cup) 5 ml Q4H PRN PO cough; Start 12/17/18 at 18:00 Linagliptin (Tradjenta) 5 mg DAILY GTB Last administered on 12/21/18 08:56; Admin Dose 5 MG; Start 12/17/18 at 09:00 Folic Acid (Folic Acid) 1 mg DAILY GTB Last administered on 12/21/18 08:54; Admin Dose 1 MG; Start 12/18/18 at 09:00 Vancomycin HCl (Vanco Iv Per Pharmacy) VANCOMYCIN PER PHARMACY PER PROTOCOL XX ; Start 12/19/18 at 09:30 Meropenem/Sodium Chloride 50 ml @ 100 mls/hr Q12 IVPB Last administered on 12/21/18 08:56; Admin Dose 100 MLS/HR; Start 12/19/18 at 11:00 Metoclopramide HCl (Reglan) 5 mg Q8 PRN IV VOMITTING; Start 12/20/18 at 10:00 Assessment/Plan Hospital Course (Demo Recall) P-l atrial fibrillation rapid ventricular response: Currently back in sinus rhythm fungemia Right hand hematoma: Status post IND now Renal failure on dialysis Hypertension Dementia Anemia Possible GI bleed: Status post EGD AI Recommendations: transfusion with HD prn Patient is not a candidate for full anticoagulation due to the fall risk as well as anemia cont beta-farrah Dialysis as per renal team Neuro workup and treatment as per internal medicine Antibiotic as per ID and internal medicine asa for now and monitor Thank you for his referral. We will continue to follow along with you as needed basis CHRISTEN ESCOBEDO MD [facility] CHRISTEN ESCOBEDO MD Dec 21, 2018 15:51
[2018-12-22] VITALS (30 sets, daily range): BP systolic 145–195; BP diastolic 56–99; PULSE 66–89; RESP 17–20
[2018-12-22] MEDS: hydrALAzine 20 MG INJ IV PRN ×3 (01:16→19:40)
[2018-12-22] MEDS ORDERED: VITAMIN A & D 5 GM OINT PACKET TOP ONE (04:35)
--- NOTE | 2018-12-22 07:25 | CONS ---
Assessment/Plan Assessment/Plan Hospital Course (Demo Recall) 83 yo female in ESRD on HD presents for melena and anemia and also found to have edematous Rt hand/wrist 1. UGIB manifested through melena and anemia -no melena noted or GI bleeding noted by nursing staff -RESOLVED 2. Anemia, acute on chronic, acute likely due to blood loss in rt hand -No evidence of active GI bleeding, consider etiology of blood loss anemia to be from hematoma in hand -Fe wnl, TIBC low, Ferritin, folate, b12 high, FOB neg -STABLE 3. ESRD on HD -Followed by nephrology 4. Hematoma of Rt hand and wrist -I and D drainage by Dr. Dean 11/17 -IMPROVED 5. Dysphagia -on tube feeds and pureed nectar for oral gratification 6. DM2 7. HTN 8. H/O diastolic dysfunction heart failure 9. S/P EGD 11/18 10. Moderate gastritis with no bleeding noted. 11. Hospital acquired pneumonia -improved 12. Yeast in urine cx -cx 12/20 12. Emesis x 1 -resolved Gastric biopsy results: Stomach, biopsy: -- Antral and oxyntic mucosa showing minimal plasma cell infiltration and small focus of intestinal metaplasia. -- No Helicobacter pylori is identified in Giemsa stain (positive control concurrently reviewed). -- No evidence of dysplasia or malignancy. Plan: Continue with tube feeds at 20cc/hr If pt vomits again, Dr Baird may switch g tube to GJ tube FOB negative Reglan 5 mg prior to meals, low dose to due ESRD Continue present care Monitor HH closely and for active GI bleeding, Pt examined and plan of care discussed with Dr. Baird Consultation Date/Type/Reason Admit Date/Time Nov 16, 2018 at 05:51 Initial Consult Date 11/16/18 Requesting Provider: DYLON WALLS MD Date/Time of Note DATE: 12/22/18 TIME: 07:19 24 HR Interval Summary Free Text/Dictation Pt was switched from tube feed boluses to tube feeds 20cc/hr. No emesis noted. Neg FOB. Exam/Review of Systems Exam Vitals Vital Signs Date Temp Pulse Resp B/P (MAP) Pulse Ox O2 O2 Flow FiO2 Time Delivery Rate 12/22/18 77 168/75 06:29 (106) 12/22/18 98.1 20 100 Nasal 05:30 Cannula 12/22/18 3.0 03:56 12/19/18 03:51 Intake and Output 12/21/18 12/21/18 12/22/18 1515:00 23:00 07:00 IntakeIntake Total 300 ml 570 ml 240 ml BalanceBalance 300 ml 570 ml 240 ml Constitutional: alert Psych: no complaints Eyes: PERRL Gastrointestinal: soft, non-tender 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: confused Results Result Diagram: 12/22/18 0539 12/22/18 0539 Results 24hrs Laboratory Tests Test 12/21/18 07:40 12/22/18 03:52 12/22/18 05:39 Stool Occult Blood NEGATIVE Bedside Glucose 175 White Blood Count 10.2 # Red Blood Count 3.10 L Hemoglobin 8.2 L Hematocrit 26.1 L Mean Corpuscular Volume 84.2 Mean Corpuscular Hemoglobin 26.5 L Mean Corpuscular Hemoglobin Concent 31.4 L Red Cell Distribution Width 17.2 H Platelet Count 219 Mean Platelet Volume 11.5 H Immature Granulocytes % 3.700 H Neutrophils % 70.1 Lymphocytes % 9.5 L Monocytes % 12.9 H Eosinophils % 3.1 Basophils % 0.7 Nucleated Red Blood Cells % 0.8 H Immature Granulocytes # 0.380 H Neutrophils # 7.1 Lymphocytes # 1.0 Monocytes # 1.3 H Eosinophils # 0.3 Basophils # 0.1 Nucleated Red Blood Cells # 0.1 H Sodium Level 135 Potassium Level 4.1 Chloride Level 97 Carbon Dioxide Level 29 Anion Gap 9 Blood Urea Nitrogen 68 H Creatinine 2.44 H Est Glomerular Filtrat Rate mL/min Glucose Level 170 # Calcium Level 8.8 Phosphorus Level 3.5 Magnesium Level 3.4 H Medications Medication Current Medications IV Flush (NS 3 ml) 3 ml PER PROTOCOL IV ; Start 11/16/18 at 09:00 Ondansetron HCl (Zofran Inj) 4 mg Q6H PRN IV NAUSEA AND/OR VOMITING Last administered on 12/19/18at 05:53; Admin Dose 4 MG; Start 11/16/18 at 09:00 Magnesium Hydroxide (Milk Of Mag) 30 ml DAILY PRN PO CONSTIPATION Last administered on 12/21/18at 05:01; Admin Dose 30 ML; Start 11/16/18 at 09:00 Sodium Chloride (NS) -To prime the dialy... DIRECTED FOR HD PRN IV SBP<90; Start 1/8/19 at 15:00 Hydralazine HCl (Apresoline) 10 mg Q4H PRN IV ELEVATED BLOOD PRESSURE Last administered on 12/22/18 05:20; Admin Dose 10 MG; Start 11/17/18 at 10:30 Acetaminophen/ Hydrocodone Bitart ([place] (5/325)) 1 tab Q3H PRN PO MODERATE PAIN LEVEL 4-6 Last administered on 12/06/18 15:38; Admin Dose 1 TAB; Start 11/17/18 at 14:30 Albumin Human 50 ml @ 100 mls/hr WITH DIALYSIS PRN IV SBP<90 Last administered on 12/13/18 11:03; Admin Dose 100 MLS/HR; Start 11/18/18 at 14:30 Morphine Sulfate (morphine) 6 mg Q4H PRN PO SEVERE PAIN LEVEL 7-10 Last administered on 12/13/18 21:31; Admin Dose 6 MG; Start 11/18/18 at 23:00 Docusate Sodium (Colace Liquid Cup) 100 mg DAILY GTB Last administered on 12/21/18 08:53; Admin Dose 100 MG; Start 11/19/18 at 09:30 Multivit/Ca Carb/ B Cmplx/FA/Prenat (Kianna-Roque) 1 tab DAILY GTB Last ad ministered on 12/21/18 08:55; Admin Dose 1 TAB; Start 11/24/18 at 09:00 Lansoprazole (Prevacid) 30 mg DAILY GTB Last administered on 12/21/18 08:54; Admin Dose 30 MG; Start 11/26/18 at 09:00 Acetaminophen (Tylenol Supp) 650 mg Q4H PRN [place] MILD PAIN(1-3) OR TEMP>38C Last administered on 11/26/18 08:32; Admin Dose 650 MG; Start 11/26/18 at 08:30 Epoetin Michael (Epogen (Esrd)) 4,000 units MoWeFr@17 SC Last administered on 12/20/18 17:31; Admin Dose 4,000 UNITS; Start 12/06/18 at 17:00 Hydralazine HCl (Apresoline) 50 mg Q8 PO Last administered on 12/22/18 05:19; Admin Dose 50 MG; Start 12/07/18 at 22:00 Sodium Chloride (NS) -To prime the dialy... DIRECTED FOR HD PRN IV HD; Start 12/07/18 at 17:30 Metoprolol Tartrate (Lopressor) 100 mg BID GTB Last administered on 12/21/18 21:22; Admin Dose 100 MG; Start 12/13/18 at 21:00 Aspirin (Halfprin) 81 mg DAILY PO Last administered on 12/21/18 08:54; Admin Dose 81 MG; Start 12/13/18 at 19:30 Senna (Senokot) 1 tab BID PO Last administered on 12/21/18 21:12; Admin Dose 1 TAB; Start 12/17/18 at 21:00 Acetaminophen (Tylenol Tab) 650 mg Q6H PRN PO PAIN LEVEL 1-3 OR FEVER Last administered on 12/21/18 05:01; Admin Dose 650 MG; Start 12/17/18 at 15:00 Albuterol/ Ipratropium (Duoneb) 3 ml Q6H RESP THERAPY PRN HHN sob Last administered on 12/19/18 03:51; Admin Dose 3 ML; Start 12/17/18 at 09:00 Docusate Sodium (Colace) 100 mg Q12H PRN PO CONSTIPATION Last administered on 12/21/18 05:01; Admin Dose 100 MG; Start 12/17/18 at 21:00 Ferrous Sulfate (Feosol Liquid Cup) 300 mg BID GTB Last administered on 12/21/18 21:12; Admin Dose 300 MG; Start 12/17/18 at 21:00 Guaifenesin/ Dextromethorphan (Robitussin Dm Liquid Cup) 5 ml Q4H PRN PO cough; Start 12/17/18 at 18:00 Linagliptin (Tradjenta) 5 mg DAILY GTB Last administered on 12/21/18 08:56; Admin Dose 5 MG; Start 12/17/18 at 09:00 Folic Acid (Folic Acid) 1 mg DAILY GTB Last administered on 12/21/18 08:54; Admin Dose 1 MG; Start 12/18/18 at 09:00 Vancomycin HCl (Vanco Iv Per Pharmacy) VANCOMYCIN PER PHARMACY PER PROTOCOL XX ; Start 12/19/18 at 09:30 Meropenem/Sodium Chloride 50 ml @ 100 mls/hr Q12 IVPB Last administered on 12/21/18at 21:24; Admin Dose 100 MLS/HR; Start 12/19/18 at 11:00 Metoclopramide HCl (Reglan) 5 mg Q8 PRN IV VOMITTING; Start 12/20/18 at 10:00 TONY VENCES Dec 22, 2018 07:25
--- NOTE | 2018-12-22 08:26 | CONS ---
Consult Date/Type/Reason Admit Date/Time Nov 16, 2018 at 05:51 Initial Consult Date 11/16/18 Type of Consultation: cv Requesting Provider: DYLON WALLS MD Date/Time of Note DATE: 12/22/18 TIME: 08:24 Subjective Cardiology follow up note Sl DW/ Staff and telemetry was reviewed. Patient has remained in normal sinus rhythm now. No more episode of atrial fibrillation Patient is less lethargic and agitated today. However continues to be confused no report of any chest pain or pressure or palpitations but pt is a very poor historian Events noted. 12/13/18: Patient went into atrial fibrillation rapid ventricular response during hemodialysis . Patient has been transferred to telemetry and converted back to sinus rhythm remains in sinus rhythm s/p I/D 11/17 EGD 11.18.18 O: General: Elderly frail female in no acute distress HEENT: NC/AT. Eyes are closed NECK: NO JVD. no stridor. CV: RRR. systolic murmur; no gallop or rubs. PULM: no wheezing or rhonchi. GI: SOFT, NT, ND, no rebound or guarding neuro: Awake and verbal Psych: confused rectal: deferred CXR 11/22: 1. Left lung interstitial opacities may reflect edema or pneumonia. Findings ar e new when compared to the prior examination. 2. Mild cardiomegaly and aortic atherosclerosis. 3. Left chest Perma-Cath with tip in the lower SVC. review of old chart shows ECHO done Oct 2018: Normal left ventricular systolic function. Normal left ventricular cavity size. Moderate concentric left ventricular hypertrophy. Ejection fraction is visually estimated at 65 %. Abnormal Diastolic Function. Mitral valve leaflets appear moderately thickened. Moderate mitral annular calcification. Trace mitral regurgitation. Aortic valve not well visualized. No hemodynamically significant aortic stenosis by doppler. Aortic sclerosis without significant stenosis. Aortic cusps appear mildly calcified. Mild to moderate aortic valve regurgitation. Estimated peak PA systolic pressure 40 mmHg. Tricuspid valve appears moderately thickened. There is mild tricuspid regurg Objective Vitals Vital Signs Date Temp Pulse Resp B/P (MAP) Pulse Ox O2 O2 Flow FiO2 Time Delivery Rate 12/22/18 98.3 83 18 179/80 97 08:04 (113) 12/22/18 Nasal 05:30 Cannula 12/22/18 3.0 03:56 12/19/18 21 03:51 Intake and Output 12/21/18 12/21/18 12/22/18 1515:00 23:00 07:00 IntakeIntake Total 300 ml 570 ml 240 ml BalanceBalance 300 ml 570 ml 240 ml Results/Medications Result Diagram: 12/22/18 0539 12/22/18 0539 Results 24 hrs Laboratory Tests Test 12/22/18 03:52 12/22/18 05:39 Bedside Glucose 175 White Blood Count 10.2 # Red Blood Count 3.10 L Hemoglobin 8.2 L Hematocrit 26.1 L Mean Corpuscular Volume 84.2 Mean Corpuscular Hemoglobin 26.5 L Mean Corpuscular Hemoglobin Concent 31.4 L Red Cell Distribution Width 17.2 H Platelet Count 219 Mean Platelet Volume 11.5 H Immature Granulocytes % 3.700 H Neutrophils % 70.1 Lymphocytes % 9.5 L Monocytes % 12.9 H Eosinophils % 3.1 Basophils % 0.7 Nucleated Red Blood Cells % 0.8 H Immature Granulocytes # 0.380 H Neutrophils # 7.1 Lymphocytes # 1.0 Monocytes # 1.3 H Eosinophils # 0.3 Basophils # 0.1 Nucleated Red Blood Cells # 0.1 H Sodium Level 135 Potassium Level 4.1 Chloride Level 97 Carbon Dioxide Level 29 Anion Gap 9 Blood Urea Nitrogen 68 H Creatinine 2.44 H Est Glomerular Filtrat Rate mL/min Glucose Level 170 # Calcium Level 8.8 Phosphorus Level 3.5 Magnesium Level 3.4 H Home Meds Reported Medications Sennosides* (Senna Lax*) 8.6 Mg Tablet, 1 TAB PO BID, TAB 11/16/18 Sevelamer Carbonate* (Renvela*) 0.8 Gm Powd.pack, 0.8 GM PO WITH MEALS, PACKET 11/16/18 Lansoprazole* (Lansoprazole*) 30 Mg Capsule.dr, 30 MG PO QAM, CAP 11/16/18 Hydralazine Hcl* (Hydralazine Hcl*) 25 Mg Tab, 25 MG PO Q8, #90 TAB 11/16/18 Ferrous Sulfate* (Ferrous Sulfate*) 325 Mg Tabec, 325 MG PO BID for anemia, TAB 11/16/18 Valproate Sodium (Valproic Acid) 250 Mg/5 Ml Solution, 250 MG PO Q8, ML 11/16/18 Insulin Aspart* (Novolog Insulin Pen*) 100 Unit/Ml Soln, 0 SC .SLIDING SCALE AC, EA IF BS 160-200=2 UNITS,201-250=4 UNITS,251-300=8 UNITS,301-350=12 UNITS;351-400=16 UNITS THEN CALL MD. 10/16/18 Ondansetron Hcl* (Zofran*) 4 Mg Tab, 4 MG GTB Q4H PRN for NAUSEA AND OR VOMITING, TAB 10/16/18 Linagliptin (TRADJENTA) 5 Mg Tablet, 5 MG GTB DAILY, TAB 10/16/18 Quetiapine Fumarate* (Seroquel*) 25 Mg Tablet, 25 MG GTB BID, #60 TAB 10/16/18 [Nephro-Roque] No Conflict Check, 0.8 MG GTB DAILY 10/16/18 Polyethylene Glycol* (Miralax*) 17 Gm Powd.pack, 17 GM GTB Q24H, #30 PACKET 10/16/18 Metoprolol Tartrate* (Lopressor*) 50 Mg Tab, 50 MG GTB DAILY, #60 TAB Q MON,WED,FRI,SUN,HOLD FOR SBP<110 OR KS<60 10/16/18 Metoprolol Tartrate* (Lopressor*) 50 Mg Tab, 50 MG GTB BID, #60 TAB QTUE,ANDREW,SAT,HOLD FOR SBP<110 OR KS<60 10/16/18 Linaclotide (LINZESS) 145 Mcg Capsule, 145 MCG GTB DAILY, #30 CAP 10/16/18 Ipratropium-Albuterol (Ipratropium-Albuterol) 0.5-3 Mg/3 Ml Ampul.neb, 3 ML INH ALATION Q6, #30 VIAL FOR 14 DAYS,STOP DATE 10/17/18 10/16/18 Hydralazine Hcl* (Hydralazine Hcl*) 25 Mg Tab, 25 MG GTB DAILY, #60 TAB Q TUE,ANDREW,SAT,HOLD IF SBP<110 OR KS<60 10/16/18 Folic Acid* (Folic Acid*) 1 Mg Tablet, 1 MG GTB DAILY, TAB 10/16/18 Docusate Sodium* (Colace*) 100 Mg Capsule, 100 MG GTB DAILY, #30 CAP 10/16/18 Lorazepam* (Lorazepam*) 1 Mg Tablet, 1 MG GTB HS PRN for ANXIETY, #30 TAB Q TUE,ANDREW,SAT 10/16/18 Amlodipine Besylate* (Norvasc*) 5 Mg Tablet, 5 MG GTB BID, TAB TAKE Q TUE,ANDREW,SAT FOR HTN, HOLD FOR SBP<110 OR KS<60 10/16/18 Acetaminophen* (Acetaminophen*) 650 Mg Tablet, 650 MG GTB Q6H PRN for PAIN LEVEL 1-08/18, #30 TAB 10/16/18 Medications Current Medications IV Flush (NS 3 ml) 3 ml PER PROTOCOL IV ; Start 11/16/18 at 09:00 Ondansetron HCl (Zofran Inj) 4 mg Q6H PRN IV NAUSEA AND/OR VOMITING Last administered on 12/19/18 05:53; Admin Dose 4 MG; Start 11/16/18 at 09:00 Magnesium Hydroxide (Milk Of Mag) 30 ml DAILY PRN PO CONSTIPATION Last administered on 12/21/18 05:01; Admin Dose 30 ML; Start 11/16/18 at 09:00 Sodium Chloride (NS) -To prime the dialy... DIRECTED FOR HD PRN IV SBP<90; S tart 11/16/18 at 15:00 Hydralazine HCl (Apresoline) 10 mg Q4H PRN IV ELEVATED BLOOD PRESSURE Last adm inistered on 12/22/18 05:20; Admin Dose 10 MG; Start 11/17/18 at 10:30 Acetaminophen/ Hydrocodone Bitart ([place] (5/325)) 1 tab Q3H PRN PO MODERATE PAIN LEVEL 4-6 Last administered on 12/06/18at 15:38; Admin Dose 1 TAB; Start 11/17/18 at 14:30 Albumin Human 50 ml @ 100 mls/hr WITH DIALYSIS PRN IV SBP<90 Last administered on 12/13/18 11:03; Admin Dose 100 MLS/HR; Start 11/18/18 at 14:30 Morphine Sulfate (morphine) 6 mg Q4H PRN PO SEVERE PAIN LEVEL 7-10 Last administered on 12/13/18 21:31; Admin Dose 6 MG; Start 11/18/18 at 23:00 Docusate Sodium (Colace Liquid Cup) 100 mg DAILY GTB Last administered on 12/21/18 08:53; Admin Dose 100 MG; Start 11/19/18 at 09:30 Multivit/Ca Carb/ B Cmplx/FA/Prenat (Kianna-Roque) 1 tab DAILY GTB Last administered on 12/21/18 08:55; Admin Dose 1 TAB; Start 11/24/18 at 09:00 Lansoprazole (Prevacid) 30 mg DAILY GTB Last administered on 12/21/18 08:54; Admin Dose 30 MG; Start 11/26/18 at 09:00 Acetaminophen (Tylenol Supp) 650 mg Q4H PRN [place] MILD PAIN(1-3) OR TEMP>38C Last administered on 11/26/18 08:32; Admin Dose 650 MG; Start 11/26/18 at 08:30 Epoetin Michael (Epogen (Esrd)) 4,000 units MoWeFr@17 SC Last administered on 12/20/18 17:31; Admin Dose 4,000 UNITS; Start 12/06/18 at 17:00 Hydralazine HCl (Apresoline) 50 mg Q8 PO Last administered on 12/22/18 05:19; Admin Dose 50 MG; Start 12/07/18 at 22:00 Sodium Chloride (NS) -To prime the dialy... DIRECTED FOR HD PRN IV HD; Start 12/07/18 at 17:30 Metoprolol Tartrate (Lopressor) 100 mg BID GTB Last administered on 12/21/18 21:22; Admin Dose 100 MG; Start 12/13/18 at 21:00 Aspirin (Halfprin) 81 mg DAILY PO Last administered on 12/21/18 08:54; Admin Dose 81 MG; Start 12/13/18 at 19:30 Senna (Senokot) 1 tab BID PO Last administered on 12/21/18 21:12; Admin Dose 1 TAB; Start 12/17/18 at 21:00 Acetaminophen (Tylenol Tab) 650 mg Q6H PRN PO PAIN LEVEL 1-3 OR FEVER Last administered on 12/21/18 05:01; Admin Dose 650 MG; Start 12/17/18 at 15:00 Albuterol/ Ipratropium (Duoneb) 3 ml Q6H RESP THERAPY PRN HHN sob Last administered on 12/19/18 03:51; Admin Dose 3 ML; Start 12/17/18 at 09:00 Docusate Sodium (Colace) 100 mg Q12H PRN PO CONSTIPATION Last administered on 12/21/18 05:01; Admin Dose 100 MG; Start 12/17/18 at 21:00 Ferrous Sulfate (Feosol Liquid Cup) 300 mg BID GTB Last administered on 12/21/18 21:12; Admin Dose 300 MG; Start 12/17/18 at 21:00 Guaifenesin/ Dextromethorphan (Robitussin Dm Liquid Cup) 5 ml Q4H PRN PO cough; Start 12/17/18 at 18:00 Linagliptin (Tradjenta) 5 mg DAILY GTB Last administered on 12/21/18 08:56; Admin Dose 5 MG; Start 12/17/18 at 09:00 Folic Acid (Folic Acid) 1 mg DAILY GTB Last administered on 12/21/18 08:54; Admin Dose 1 MG; Start 12/18/18 at 09:00 Vancomycin HCl (Vanco Iv Per Pharmacy) VANCOMYCIN PER PHARMACY PER PROTOCOL XX ; Start 12/19/18 at 09:30 Meropenem/Sodium Chloride 50 ml @ 100 mls/hr Q12 IVPB Last administered on 12/21/18 21:24; Admin Dose 100 MLS/HR; Start 12/19/18 at 11:00 Metoclopramide HCl (Reglan) 5 mg Q8 PRN IV VOMITTING; Start 12/20/18 at 10:00 Assessment/Plan Hospital Course (Demo Recall) P-atrial fibrillation rapid ventricular response: Currently back in sinus rhythm fungemia /fungal urinary tract infection Status post right hand hematoma: Status post I&D Renal failure on dialysis Hypertension Dementia Anemia Possible GI bleed: Status post EGD AI Recommendations: transfusion with HD prn Patient is not a candidate for full anticoagulation due to the fall risk as well as anemia cont beta-farrah Dialysis as per renal team Neuro workup and treatment as per internal medicine Antibiotic as per ID and internal medicine asa for now and monitor Thank you for his referral. We will continue to follow along with you as needed basis CHRISTEN ESCOBEDO MD [facility] CHRISTEN ESCOBEDO MD Dec 22, 2018 08:26
--- NOTE | 2018-12-22 12:33 | CONS ---
Assessment/Plan Assessment/Plan Hospital Course (Demo Recall) In hemodialysis, looks comfortable, no fevers Microbiology: Repeat blood cultures negative, urine culture growing Dominique glabrata Blood culture repeated on November 29 grew Dominique glabrata blood cultures since December 01 that were drawn from permacath negative blood culture on December 03 negative, urine culture growing C glabrata Indwelling: Left chest permacath, PEG Physical examination: Chronically ill-appearing elderly woman who is awake, confused, in no distress. Head atraumatic normocephalic. Neck is supple. Chest rise symmetrical breath sounds diminished bases. Heart: S1-S2. Abdomen soft bowel sounds present, right upper extremity Armani wrapped Assessment: 1. Recurrent UTI 1. S/p Fungemia secondary to urinary tract infection 2. S/p pneumonia 3. Right hand hematoma, status post I&D 11/17/18 4. Status post VRE bacteremia/new Pcath 5. End-stage renal disease, hemodialysis dependent 6. Dementia 7. Failure to thrive 8. Diabetes 9. Anemia 10. S/p sepsis 11. P Afib Plan: Clinically stable, restart voriconazole Consultation Date/Type/Reason Admit Date/Time Nov 16, 2018 at 05:51 Initial Consult Date 11/16/18 Type of Consult id Requesting Provider: DYLON WALLS MD Date/Time of Note DATE: 12/22/18 TIME: 12:32 Exam/Review of Systems Exam Vitals Vital Signs Date Temp Pulse Resp B/P (MAP) Pulse Ox O2 O2 Flow FiO2 Time Delivery Rate 12/22/18 87 17 159/56 99 Nasal 3.0 12:22 (90) Cannula 12/22/18 98.3 08:04 12/19/18 03:51 Intake and Output 12/21/18 12/21/18 12/22/18 1515:00 23:00 07:00 IntakeIntake Total 300 ml 570 ml 240 ml BalanceBalance 300 ml 570 ml 240 ml Results Result Diagram: 12/22/18 0539 12/22/18 0539 Results 24hrs Laboratory Tests Test 12/22/18 03:52 12/22/18 05:39 Bedside Glucose 175 White Blood Count 10.2 # Red Blood Count 3.10 L Hemoglobin 8.2 L Hematocrit 26.1 L Mean Corpuscular Volume 84.2 Mean Corpuscular Hemoglobin 26.5 L Mean Corpuscular Hemoglobin Concent 31.4 L Red Cell Distribution Width 17.2 H Platelet Count 219 Mean Platelet Volume 11.5 H Immature Granulocytes % 3.700 H Neutrophils % 70.1 Lymphocytes % 9.5 L Monocytes % 12.9 H Eosinophils % 3.1 Basophils % 0.7 Nucleated Red Blood Cells % 0.8 H Immature Granulocytes # 0.380 H Neutrophils # 7.1 Lymphocytes # 1.0 Monocytes # 1.3 H Eosinophils # 0.3 Basophils # 0.1 Nucleated Red Blood Cells # 0.1 H Sodium Level 135 Potassium Level 4.1 Chloride Level 97 Carbon Dioxide Level 29 Anion Gap 9 Blood Urea Nitrogen 68 H Creatinine 2.44 H Est Glomerular Filtrat Rate mL/min Glucose Level 170 # Calcium Level 8.8 Phosphorus Level 3.5 Magnesium Level 3.4 H Medications Medication Current Medications IV Flush (NS 3 ml) 3 ml PER PROTOCOL IV ; Start 11/16/18 at 09:00 Ondansetron HCl (Zofran Inj) 4 mg Q6H PRN IV NAUSEA AND/OR VOMITING Last administered on 12/19/18 05:53; Admin Dose 4 MG; Start 11/16/18 at 09:00 Magnesium Hydroxide (Milk Of Mag) 30 ml DAILY PRN PO CONSTIPATION Last administered on 12/21/18 05:01; Admin Dose 30 ML; Start 11/16/18 at 09:00 Hydralazine HCl (Apresoline) 10 mg Q4H PRN IV ELEVATED BLOOD PRESSURE Last adm inistered on 12/22/18 05:20; Admin Dose 10 MG; Start 11/17/18 at 10:30 Acetaminophen/ Hydrocodone Bitart ([place] (5/325)) 1 tab Q3H PRN PO MODERATE PAIN LEVEL 4-6 Last administered on 12/06/18at 15:38; Admin Dose 1 TAB; Start 11/17/18 at 14:30 Albumin Human 50 ml @ 100 mls/hr WITH DIALYSIS PRN IV SBP<90 Last administered on 12/13/18 11:03; Admin Dose 100 MLS/HR; Start 11/18/18 at 14:30 Morphine Sulfate (morphine) 6 mg Q4H PRN PO SEVERE PAIN LEVEL 7-10 Last administered on 12/13/18at 21:31; Admin Dose 6 MG; Start 11/18/18 at 23:00 Docusate Sodium (Colace Liquid Cup) 100 mg DAILY GTB Last administered on 12/21/18 08:53; Admin Dose 100 MG; Start 11/19/18 at 09:30 Multivit/Ca Carb/ B Cmplx/FA/Prenat (Kianna-Roque) 1 tab DAILY GTB Last administered on 12/21/18 08:55; Admin Dose 1 TAB; Start 11/24/18 at 09:00 Lansoprazole (Prevacid) 30 mg DAILY GTB Last administered on 12/21/18 08:54; Admin Dose 30 MG; Start 11/26/18 at 09:00 Acetaminophen (Tylenol Supp) 650 mg Q4H PRN [place] MILD PAIN(1-3) OR TEMP>38C Last administered on 11/26/18 08:32; Admin Dose 650 MG; Start 11/26/18 at 08:30 Epoetin Michael (Epogen (Esrd)) 4,000 units MoWeFr@17 SC Last administered on 12/20/18 17:31; Admin Dose 4,000 UNITS; Start 12/06/18 at 17:00 Hydralazine HCl (Apresoline) 50 mg Q8 PO Last administered on 12/22/18 05:19; Admin Dose 50 MG; Start 12/07/18 at 22:00 Sodium Chloride (NS) -To prime the dialy... DIRECTED FOR HD PRN IV HD; Start 12/07/18 at 17:30 Metoprolol Tartrate (Lopressor) 100 mg BID GTB Last administered on 12/21/18 21:22; Admin Dose 100 MG; Start 12/13/18 at 21:00 Aspirin (Halfprin) 81 mg DAILY PO Last administered on 12/21/18 08:54; Admin Dose 81 MG; Start 12/13/18 at 19:30 Senna (Senokot) 1 tab BID PO Last administered on 12/21/18 21:12; Admin Dose 1 TAB; Start 12/17/18 at 21:00 Acetaminophen (Tylenol Tab) 650 mg Q6H PRN PO PAIN LEVEL 1-3 OR FEVER Last administered on 12/21/18 05:01; Admin Dose 650 MG; Start 12/17/18 at 15:00 Albuterol/ Ipratropium (Duoneb) 3 ml Q6H RESP THERAPY PRN HHN sob Last administered on 12/19/18 03:51; Admin Dose 3 ML; Start 12/17/18 at 09:00 Docusate Sodium (Colace) 100 mg Q12H PRN PO CONSTIPATION Last administered on 12/21/18 05:01; Admin Dose 100 MG; Start 12/17/18 at 21:00 Ferrous Sulfate (Feosol Liquid Cup) 300 mg BID GTB Last administered on 12/21/18 21:12; Admin Dose 300 MG; Start 12/17/18 at 21:00 Guaifenesin/ Dextromethorphan (Robitussin Dm Liquid Cup) 5 ml Q4H PRN PO cough; Start 12/17/18 at 18:00 Linagliptin (Tradjenta) 5 mg DAILY GTB Last administered on 12/21/18 08:56; Admin Dose 5 MG; Start 12/17/18 at 09:00 Folic Acid (Folic Acid) 1 mg DAILY GTB Last administered on 12/21/18 08:54; Admin Dose 1 MG; Start 12/18/18 at 09:00 Vancomycin HCl (Vanco Iv Per Pharmacy) VANCOMYCIN PER PHARMACY PER PROTOCOL XX ; Start 12/19/18 at 09:30 Meropenem/Sodium Chloride 50 ml @ 100 mls/hr Q12 IVPB Last administered on 12/21/18 21:24; Admin Dose 100 MLS/HR; Start 12/19/18 at 11:00 Metoclopramide HCl (Reglan) 5 mg Q8 PRN IV VOMITTING; Start 12/20/18 at 10:00 IV Flush (NS 10 ml) 10 ml AFTER DIALYSIS CATHETER ; Start 12/22/18 at 10:00 Voriconazole (Vfend) 200 mg BID PO ; Start 12/22/18 at 11:00 PHYLICIA HOLCOMB NP Dec 22, 2018 12:33
[2018-12-22] MEDS: MEROPENEM 500MG/50 ML (PMX) 50 ML IVPB SCH ×2 (13:06→21:01)
[2018-12-22] MEDS: DOCUSATE SODIUM 10 MG/ML (10ML CUP) GTB SCH (13:06)
[2018-12-22] MEDS: SENNA TAB PO SCH ×2 (13:06→20:24)
[2018-12-22] MEDS: FERROUS SULFATE 60 MG/ML 5ML CUP GTB SCH ×2 (13:07→20:24)
[2018-12-22] MEDS: METOPROLOL 50 MG TAB GTB SCH ×2 (13:08→20:26)
[2018-12-22] MEDS: FOLIC ACID 1 MG TAB GTB SCH (13:08)
[2018-12-22] MEDS: LANSOPRAZOLE 30 MG CAP GTB SCH (13:08)
[2018-12-22] MEDS: ASPIRIN (EC) 81 MG TAB PO SCH (13:08)
[2018-12-22] MEDS: MULTIVIT/CA CARB/B CMPLX/FA TAB GTB SCH (13:08)
[2018-12-22] MEDS: LINAGLIPTIN 5 MG TABLET GTB SCH (13:11)
[2018-12-22] MEDS: VORICONAZOLE 200 MG TAB PO SCH ×2 (13:59→20:24)
--- NOTE | 2018-12-22 15:29 | CONS ---
Assessment/Plan Assessment/Plan Hospital Course (Demo Recall) 83 y/o with Hospital Course (Demo Recall) 1. End-stage renal disease on hemodialysis. 2. Gastrointestinal bleed with melena.resolved 3. Hypertension. 4. Diabetes. 5. Right hand swelling, s/p I and D on 11/17/18 6. History of falls. 7. Vascular dementia. 8. History of sepsis with VRE. 9. Dysphagia, status post G-tube. 10. History of hip fracture. 11. Thrombocytopenia. 12. Atherosclerotic heart disease. 13. Pneumonia left side 14. Anemia 15 YEAST BACTERIMIA LIKELY DUE TO UTI 16 Paroxsymal AFib now in sinus Assessment/Plan (Daily) - Hd MWF, Hd today - dc mg supplements - cw with permacath -avoid nephrotoxic drugs -HD MWFr -c/w epogen - Aspiration precautions Consultation Date/Type/Reason Admit Date/Time Nov 16, 2018 at 05:51 Initial Consult Date 11/16/18 Requesting Provider: DYLON WALLS MD Date/Time of Note DATE: 12/22/18 TIME: 15:25 24 HR Interval Summary Free Text/Dictation Patient is much more awake today Mg is high today. Exam/Review of Systems Exam Vitals Vital Signs Date Temp Pulse Resp B/P (MAP) Pulse Ox O2 O2 Flow FiO2 Time Delivery Rate 12/22/18 87 13:35 12/22/18 98.4 18 156/56 95 12:36 (89) 12/22/18 Nasal 3.0 12:22 Cannula 12/19/18 21 03:51 Intake and Output 12/21/18 12/21/18 12/22/18 1515:00 23:00 07:00 IntakeIntake Total 300 ml 570 ml 240 ml BalanceBalance 300 ml 570 ml 240 ml Exam Exam lefteft chest Permcath Constitutional: frail Psych: confusion Cardiovascular: regular rate and rhythm Gastrointestinal: soft, other (g tube) Skin: ecchymosis, laceration Results Result Diagram: 12/22/18 0539 12/22/18 0539 Results 24hrs Laboratory Tests Test 12/22/18 03:52 12/22/18 05:39 12/22/18 13:11 Bedside Glucose 175 182 White Blood Count 10.2 # Red Blood Count 3.10 L Hemoglobin 8.2 L Hematocrit 26.1 L Mean Corpuscular Volume 84.2 Mean Corpuscular Hemoglobin 26.5 L Mean Corpuscular Hemoglobin Concent 31.4 L Red Cell Distribution Width 17.2 H Platelet Count 219 Mean Platelet Volume 11.5 H Immature Granulocytes % 3.700 H Neutrophils % 70.1 Lymphocytes % 9.5 L Monocytes % 12.9 H Eosinophils % 3.1 Basophils % 0.7 Nucleated Red Blood Cells % 0.8 H Immature Granulocytes # 0.380 H Neutrophils # 7.1 Lymphocytes # 1.0 Monocytes # 1.3 H Eosinophils # 0.3 Basophils # 0.1 Nucleated Red Blood Cells # 0.1 H Sodium Level 135 Potassium Level 4.1 Chloride Level 97 Carbon Dioxide Level 29 Anion Gap 9 Blood Urea Nitrogen 68 H Creatinine 2.44 H Est Glomerular Filtrat Rate mL/min Glucose Level 170 # Calcium Level 8.8 Phosphorus Level 3.5 Magnesium Level 3.4 H Medications Medication Current Medications IV Flush (NS 3 ml) 3 ml PER PROTOCOL IV ; Start 11/16/18 at 09:00 Ondansetron HCl (Zofran Inj) 4 mg Q6H PRN IV NAUSEA AND/OR VOMITING Last administered on 12/19/18 05:53; Admin Dose 4 MG; Start 11/16/18 at 09:00 Magnesium Hydroxide (Milk Of Mag) 30 ml DAILY PRN PO CONSTIPATION Last administered on 12/21/18 05:01; Admin Dose 30 ML; Start 11/16/18 at 09:00 Hydralazine HCl (Apresoline) 10 mg Q4H PRN IV ELEVATED BLOOD PRESSURE Last administered on 12/22/18 05:20; Admin Dose 10 MG; Start 11/17/18 at 10:30 Acetaminophen/ Hydrocodone Bitart ([place] (5/325)) 1 tab Q3H PRN PO MODERATE PAIN LEVEL 4-6 Last administered on 12/06/18 15:38; Admin Dose 1 TAB; Start 11/17/18 at 14:30 Albumin Human 50 ml @ 100 mls/hr WITH DIALYSIS PRN IV SBP<90 Last administered on 12/13/18 11:03; Admin Dose 100 MLS/HR; Start 11/18/18 at 14:30 Morphine Sulfate (morphine) 6 mg Q4H PRN PO SEVERE PAIN LEVEL 7-10 Last administered on 12/13/18 21:31; Admin Dose 6 MG; Start 11/18/18 at 23:00 Docusate Sodium (Colace Liquid Cup) 100 mg DAILY GTB Last administered on 12/22/18 13:06; Admin Dose 100 MG; Start 11/19/18 at 09:30 Multivit/Ca Carb/ B Cmplx/FA/Prenat (Kianna-Roque) 1 tab DAILY GTB Last administered on 12/22/18 13:08; Admin Dose 1 TAB; Start 11/24/18 at 09:00 Lansoprazole (Prevacid) 30 mg DAILY GTB Last administered on 12/22/18 13:08; Admin Dose 30 MG; Start 11/26/18 at 09:00 Acetaminophen (Tylenol Supp) 650 mg Q4H PRN [place] MILD PAIN(1-3) OR TEMP>38C Last administered on 11/26/18 08:32; Admin Dose 650 MG; Start 11/26/18 at 08:30 Epoetin Michael (Epogen (Esrd)) 4,000 units MoWeFr@17 SC Last administered on 12/20/18 17:31; Admin Dose 4,000 UNITS; Start 12/06/18 at 17:00 Hydralazine HCl (Apresoline) 50 mg Q8 PO Last administered on 12/22/18 14:00; Admin Dose 50 MG; Start 12/07/18 at 22:00 Sodium Chloride (NS) -To prime the dialy... DIRECTED FOR HD PRN IV HD; Start 12/07/18 at 17:30 Metoprolol Tartrate (Lopressor) 100 mg BID GTB Last administered on 12/22/18 13:08; Admin Dose 100 MG; Start 12/13/18 at 21:00 Aspirin (Halfprin) 81 mg DAILY PO Last administered on 12/22/18 13:08; Admin Dose 81 MG; Start 12/13/18 at 19:30 Senna (Senokot) 1 tab BID PO Last administered on 12/22/18 13:06; Admin Dose 1 TAB; Start 12/17/18 at 21:00 Acetaminophen (Tylenol Tab) 650 mg Q6H PRN PO PAIN LEVEL 1-3 OR FEVER Last administered on 12/21/18 05:01; Admin Dose 650 MG; Start 12/17/18 at 15:00 Albuterol/ Ipratropium (Duoneb) 3 ml Q6H RESP THERAPY PRN HHN sob Last administered on 12/19/18 03:51; Admin Dose 3 ML; Start 12/17/18 at 09:00 Docusate Sodium (Colace) 100 mg Q12H PRN PO CONSTIPATION Last administered on 12/21/18 05:01; Admin Dose 100 MG; Start 12/17/18 at 21:00 Ferrous Sulfate (Feosol Liquid Cup) 300 mg BID GTB Last administered on 12/22/18 13:07; Admin Dose 300 MG; Start 12/17/18 at 21:00 Guaifenesin/ Dextromethorphan (Robitussin Dm Liquid Cup) 5 ml Q4H PRN PO cough; Start 12/17/18 at 18:00 Linagliptin (Tradjenta) 5 mg DAILY GTB Last administered on 12/22/18 13:11; Admin Dose 5 MG; Start 12/17/18 at 09:00 Folic Acid (Folic Acid) 1 mg DAILY GTB Last administered on 12/22/18 13:08; Admin Dose 1 MG; Start 12/18/18 at 09:00 Vancomycin HCl (Vanco Iv Per Pharmacy) VANCOMYCIN PER PHARMACY PER PROTOCOL XX ; Start 12/19/18 at 09:30 Meropenem/Sodium Chloride 50 ml @ 100 mls/hr Q12 IVPB Last administered on 12/22/18 13:06; Admin Dose 100 MLS/HR; Start 12/19/18 at 11:00 Metoclopramide HCl (Reglan) 5 mg Q8 PRN IV VOMITTING; Start 12/20/18 at 10:00 IV Flush (NS 10 ml) 10 ml AFTER DIALYSIS CATHETER ; Start 12/22/18 at 10:00 Voriconazole (Vfend) 200 mg BID PO Last administered on 12/22/18 13:59; Admin Dose 200 MG; Start 12/22/18 at 11:00 JOSE RAUL ANDREWS MD Dec 22, 2018 15:29
[2018-12-22] MEDS ORDERED: SODIUM CHLORIDE 0.9% 1L BAG IV PRN (17:00)
[2018-12-22] MEDS ORDERED: MAGNESIUM HYDROXIDE 30ML CUP PO PRN (17:00)
--- NOTE | 2018-12-22 17:30 | PN ---
DATE: 12/22/2018 SUBJECTIVE: The patient was seen. She was started on NG tube feeding at 30 mL an hour, tolerating i t well dietary recommendations. The patient unfortunately again is somewhat encephalopathic ri [facility] now and overall, in no distress. OBJECTIVE: VITAL SIGNS: Temperature 98.4, pulse 87, respirations 18, blood pressure 156/56, saturation 95% on 3 liters. GENERAL: The patient is frail, cachectic. HEENT: Pale. CARDIOVASCULAR: S1, S2. LUNGS: Decreased bilaterally. ABDOMEN: Soft. G-tube in place. EXTREMITIES: No clubbing, cyanosis or edema. LABORATORY DATA: White count 10.2, hemoglobin 8.2, hematocrit 26, platelet count 219, neutrophils 70 %, lymphocytes 10%. Chemistry: Sodium is 135, potassium 4.1, chloride 97, bicarbonate 29, BUN is 68 , creatinine 2.44, glucose 170. MEDICATIONS: Reviewed and include: 1. Vfend. 2. Reglan. 3. Merrem. 4. Vancomycin. 5. Folic acid. 6. Senna. 7. Colace. 8. Ferrous sulfate. 9. Robitussin. 10. Tylenol. 11. DuoNeb. 12. Tradjenta. 13. Lopressor. 14. Aspirin. 15. Hydralazine. 15. Epogen. 16. Tylenol. 17. Kianna-Roque. 18. Colace. 19. Morphine. 20. [place]. 21. Hydralazine. 22. Zofran. MICROBIOLOGY: The patient's urine cultures came back as Dominique glabrata 30,000 to 40,000, that she was also placed on Vfend. ASSESSMENT AND PLAN: This is an 83-year-old [place]ammar[place] female with end-stage renal disease, advanced d ementia, cerebrovascular accident, chronic obstructive pulmonary disease, status post evacuation of r ight hand hematoma status post treatment for line sepsis, bacteremia, fungemia, urinary tract infecti on with waxing and waning mental status, being treated again for aspiration pneumonia. 1. Respiratory. Remains on treatment for aspiration pneumonia with Merrem and vancomycin. Follow u p WBC. White count is now normal. 2. Cardiovascular. Continue beta farrah. Titrate blood pressure medication up as needed. 3. Anemia. Hemoglobin and hematocrit remain stable. Continue Epogen for now. Transfuse p.r.n. 4. End-stage renal disease, dialysis 3 times a week. 5. Diabetes mellitus. Glucose level is in the 100s. Observe. 6. Dysphagia. Resume G-tube feeding. May to discontinue iron as that may predispose her to vomitin g as per dietary. 7. Advanced dementia with poor quality of life, remains full code. The patient's daughter does want to be less aggressive despite the patient's overall decline and overall long-term poor prognosis. 8. Continue close monitoring, 1:1 sitter due to danger to self. We will follow. Dictated By: DYLON HULL/NTS Conf#: [id number] DID#: [id number] CC: CHRISS WELCH MD;*EndCC*
[2018-12-22] MEDS: EPOETIN 4000 UNITS/1 ML INJ (ESRD) SC SCH (19:39)
[2018-12-23 01:49] VITALS: BP 149/78; PULSE 72; RESP 20
[2018-12-23 08:00] VITALS: BP 146/65; PULSE 70; RESP 18
[2018-12-23] MEDS: DOCUSATE SODIUM 10 MG/ML (10ML CUP) GTB SCH (09:00)
[2018-12-23] MEDS: VORICONAZOLE 200 MG TAB PO SCH ×2 (09:34→21:03)
[2018-12-23] MEDS: LANSOPRAZOLE 30 MG CAP GTB SCH (09:34)
[2018-12-23] MEDS: FERROUS SULFATE 60 MG/ML 5ML CUP GTB SCH ×2 (09:34→21:03)
[2018-12-23] MEDS: LINAGLIPTIN 5 MG TABLET GTB SCH (09:36)
[2018-12-23] MEDS: FOLIC ACID 1 MG TAB GTB SCH (09:36)
[2018-12-23] MEDS: MULTIVIT/CA CARB/B CMPLX/FA TAB GTB SCH (09:36)
[2018-12-23] MEDS: METOPROLOL 50 MG TAB GTB SCH ×2 (09:37→21:03)
[2018-12-23] MEDS: ASPIRIN (EC) 81 MG TAB PO SCH (09:37)
[2018-12-23] MEDS: MEROPENEM 500MG/50 ML (PMX) 50 ML IVPB SCH (09:37)
[2018-12-23] MEDS: SENNA TAB PO SCH ×2 (09:37→21:03)
--- NOTE | 2018-12-23 09:45 | CONS ---
Consult Date/Type/Reason Admit Date/Time Nov 16, 2018 at 05:51 Initial Consult Date 11/16/18 Type of Consultation: cv Requesting Provider: DYLON WALLS MD Date/Time of Note DATE: 12/23/18 TIME: 09:43 Subjective Cardiology follow up note Sl DW/ Staff and telemetry was reviewed. Patient has remained in normal sinus rhythm while she was on tele with No more episode of atrial fibrillation. pt is Currently off telemetry now pt continues to be confused no report of any chest pain or pressure or palpitations but pt is a very poor historian Events noted. 12/13/18: Patient went into atrial fibrillation rapid ventricular response during hemodialysis . Patient has been transferred to telemetry and converted back to sinus rhythm remains in sinus rhythm s/p I/D 11/17 EGD 11.18.18 O: General: Elderly frail female in no acute distress HEENT: NC/AT. Eyes are closed NECK: NO JVD. no stridor. CV: RRR. systolic murmur; no gallop or rubs. PULM: no wheezing or rhonchi. GI: SOFT, NT, ND, no rebound or guarding neuro: sleeping comfortably Psych: confused rectal: deferred CXR 11/22: 1. Left lung interstitial opacities may reflect edema or pneumonia. Findings are new when compared to the prior examination. 2. Mild cardiomegaly and aortic atherosclerosis. 3. Left chest Perma-Cath with tip in the lower SVC. review of old chart shows ECHO done Oct 2018: Normal left ventricular systolic function. Normal left ventricular cavity size. Moderate concentric left ventricular hypertrophy. Ejection fraction is visually estimated at 65 %. Abnormal Diastolic Function. Mitral valve leaflets appear moderately thickened. Moderate mitral annular calcification. Trace mitral regurgitation. Aortic valve not well visualized. No hemodynamically significant aortic stenosis by doppler. Aortic sclerosis without significant stenosis. Aortic cusps appear mildly calcified. Mild to moderate aortic valve regurgitation. Estimated peak PA systolic pressure 40 mmHg. Tricuspid valve appears moderately thickened. There is mild tricuspid regurg Objective Vitals Vital Signs Date Temp Pulse Resp B/P (MAP) Pulse Ox O2 O2 Flow FiO2 Time Delivery Rate 12/23/18 98.5 70 18 146/65 100 Nasal 08:00 (92) Cannula 12/23/18 3.0 05:59 Intake and Output 12/22/18 12/22/18 12/23/18 1515:00 23:00 07:00 IntakeIntake Total 390 ml 80 ml OutputOutput Total 2400 ml BalanceBalance -2400 ml 390 ml 80 ml Results/Medications Result Diagram: 12/22/18 0539 12/22/18 0539 Results 24 hrs Laboratory Tests Test 12/22/18 13:11 12/23/18 00:37 12/23/18 07:28 Bedside Glucose 182 170 136 Home Meds Reported Medications Sennosides* (Senna Lax*) 8.6 Mg Tablet, 1 TAB PO BID, TAB 11/16/18 Sevelamer Carbonate* (Renvela*) 0.8 Gm Powd.pack, 0.8 GM PO WITH MEALS, PACKET 11/16/18 Lansoprazole* (Lansoprazole*) 30 Mg Capsule.dr, 30 MG PO QAM, CAP 11/16/18 Hydralazine Hcl* (Hydralazine Hcl*) 25 Mg Tab, 25 MG PO Q8, #90 TAB 11/16/18 Ferrous Sulfate* (Ferrous Sulfate*) 325 Mg Tabec, 325 MG PO BID for anemia, TAB 11/16/18 Valproate Sodium (Valproic Acid) 250 Mg/5 Ml Solution, 250 MG PO Q8, ML 11/16/18 Insulin Aspart* (Novolog Insulin Pen*) 100 Unit/Ml Soln, 0 SC .SLIDING SCALE AC, EA IF BS 160-200=2 UNITS,201-250=4 UNITS,251-300=8 UNITS,301-350=12 UNITS;351-400=16 UNITS THEN CALL MD. 10/16/18 Ondansetron Hcl* (Zofran*) 4 Mg Tab, 4 MG GTB Q4H PRN for NAUSEA AND OR VOMITING, TAB 10/16/18 Linagliptin (TRADJENTA) 5 Mg Tablet, 5 MG GTB DAILY, TAB 10/16/18 Quetiapine Fumarate* (Seroquel*) 25 Mg Tablet, 25 MG GTB BID, #60 TAB 10/16/18 [Nephro-Roque] No Conflict Check, 0.8 MG GTB DAILY 10/16/18 Polyethylene Glycol* (Miralax*) 17 Gm Powd.pack, 17 GM GTB Q24H, #30 PACKET 10/16/18 Metoprolol Tartrate* (Lopressor*) 50 Mg Tab, 50 MG GTB DAILY, #60 TAB Q MON,WED,FRI,SUN,HOLD FOR SBP<110 OR MD<60 10/16/18 Metoprolol Tartrate* (Lopressor*) 50 Mg Tab, 50 MG GTB BID, #60 TAB QTUE,ANDREW,SAT,HOLD FOR SBP<110 OR MD<60 10/16/18 Linaclotide (LINZESS) 145 Mcg Capsule, 145 MCG GTB DAILY, #30 CAP 10/16/18 Ipratropium-Albuterol (Ipratropium-Albuterol) 0.5-3 Mg/3 Ml Ampul.neb, 3 ML INHALATION Q6, #30 VIAL FOR 14 DAYS,STOP DATE 10/17/18 10/16/18 Hydralazine Hcl* (Hydralazine Hcl*) 25 Mg Tab, 25 MG GTB DAILY, #60 TAB Q TUE,ANDREW,SAT,HOLD IF SBP<110 OR MD<60 10/16/18 Folic Acid* (Folic Acid*) 1 Mg Tablet, 1 MG GTB DAILY, TAB 10/16/18 Docusate Sodium* (Colace*) 100 Mg Capsule, 100 MG GTB DAILY, #30 CAP 10/16/18 Lorazepam* (Lorazepam*) 1 Mg Tablet, 1 MG GTB HS PRN for ANXIETY, #30 TAB Q TUE,ANDREW,SAT 10/16/18 Amlodipine Besylate* (Norvasc*) 5 Mg Tablet, 5 MG GTB BID, TAB TAKE Q TUE,ANDREW,SAT FOR HTN, HOLD FOR SBP<110 OR MD<60 10/16/18 Acetaminophen* (Acetaminophen*) 650 Mg Tablet, 650 MG GTB Q6H PRN for PAIN LEVEL 1-08/18, #30 TAB 10/16/18 Medications Current Medications IV Flush (NS 3 ml) 3 ml PER PROTOCOL IV ; Start 11/16/18 at 09:00 Ondansetron HCl (Zofran Inj) 4 mg Q6H PRN IV NAUSEA AND/OR VOMITING Last administered on 12/19/18at 05:53; Admin Dose 4 MG; Start 11/16/18 at 09:00 Hydralazine HCl (Apresoline) 10 mg Q4H PRN IV ELEVATED BLOOD PRESSURE Last administered on 12/22/18at 19:40; Admin Dose 10 MG; Start 11/17/18 at 10:30 Acetaminophen/ Hydrocodone Bitart ([place] (5/325)) 1 tab Q3H PRN PO MODERATE PAIN LEVEL 4-6 Last administered on 12/06/18 15:38; Admin Dose 1 TAB; Start 11/17/18 at 14:30 Albumin Human 50 ml @ 100 mls/hr WITH DIALYSIS PRN IV SBP<90 Last administered on 12/13/18 11:03; Admin Dose 100 MLS/HR; Start 11/18/18 at 14:30 Morphine Sulfate (morphine) 6 mg Q4H PRN PO SEVERE PAIN LEVEL 7-10 Last administered on 12/13/18 21:31; Admin Dose 6 MG; Start 11/18/18 at 23:00 Docusate Sodium (Colace Liquid Cup) 100 mg DAILY GTB Last administered on 12/22/18 13:06; Admin Dose 100 MG; Start 11/19/18 at 09:30 Multivit/Ca Carb/ B Cmplx/FA/Prenat (Kianna-Roque) 1 tab DAILY GTB Last a dministered on 12/23/18 09:36; Admin Dose 1 TAB; Start 11/24/18 at 09:00 Lansoprazole (Prevacid) 30 mg DAILY GTB Last administered on 12/23/18 09:34; Admin Dose 30 MG; Start 11/26/18 at 09:00 Acetaminophen (Tylenol Supp) 650 mg Q4H PRN MD MILD PAIN(1-3) OR TEMP>38C Last administered on 11/26/18 08:32; Admin Dose 650 MG; Start 11/26/18 at 08:30 Epoetin Michael (Epogen (Esrd)) 4,000 units MoWeFr@17 SC Last administered on 12/22/18 19:39; Admin Dose 4,000 UNITS; Start 12/06/18 at 17:00 Hydralazine HCl (Apresoline) 50 mg Q8 PO Last administered on 12/23/18 06:03; Admin Dose 50 MG; Start 12/07/18 at 22:00 Sodium Chloride (NS) -To prime the dialy... DIRECTED FOR HD PRN IV HD; Start 12/07/18 at 17:30 Metoprolol Tartrate (Lopressor) 100 mg BID GTB Last administered on 12/23/18 09:37; Admin Dose 100 MG; Start 12/13/18 at 21:00 Aspirin (Halfprin) 81 mg DAILY PO Last administered on 12/23/18 09:37; Admin Dose 81 MG; Start 12/13/18 at 19:30 Senna (Senokot) 1 tab BID PO Last administered on 12/23/18 09:37; Admin Dose 1 TAB; Start 12/17/18 at 21:00 Acetaminophen (Tylenol Tab) 650 mg Q6H PRN PO PAIN LEVEL 1-3 OR FEVER Last administered on 12/21/18 05:01; Admin Dose 650 MG; Start 12/17/18 at 15:00 Albuterol/ Ipratropium (Duoneb) 3 ml Q6H RESP THERAPY PRN HHN sob Last administered on 12/19/18 03:51; Admin Dose 3 ML; Start 12/17/18 at 09:00 Docusate Sodium (Colace) 100 mg Q12H PRN PO CONSTIPATION Last administered on 12/21/18 05:01; Admin Dose 100 MG; Start 12/17/18 at 21:00 Ferrous Sulfate (Feosol Liquid Cup) 300 mg BID GTB Last administered on 12/23/18 09:34; Admin Dose 300 MG; Start 12/17/18 at 21:00 Guaifenesin/ Dextromethorphan (Robitussin Dm Liquid Cup) 5 ml Q4H PRN PO cough; Start 12/17/18 at 18:00 Linagliptin (Tradjenta) 5 mg DAILY GTB Last administered on 12/23/18 09:36; Admin Dose 5 MG; Start 12/17/18 at 09:00 Folic Acid (Folic Acid) 1 mg DAILY GTB Last administered on 12/23/18 09:36; Admin Dose 1 MG; Start 12/18/18 at 09:00 Vancomycin HCl (Vanco Iv Per Pharmacy) VANCOMYCIN PER PHARMACY PER PROTOCOL XX ; Start 12/19/18 at 09:30 Meropenem/Sodium Chloride 50 ml @ 100 mls/hr Q12 IVPB Last administered on 12/23/18 09:37; Admin Dose 100 MLS/HR; Start 12/19/18 at 11:00 Metoclopramide HCl (Reglan) 5 mg Q8 PRN IV VOMITTING; Start 12/20/18 at 10:00 IV Flush (NS 10 ml) 10 ml AFTER DIALYSIS CATHETER ; Start 12/22/18 at 10:00 Voriconazole (Vfend) 200 mg BID PO Last administered on 12/23/18at 09:34; Admin Dose 200 MG; Start 12/22/18 at 11:00 Magnesium Hydroxide (Milk Of Mag) 30 ml DAILY PRN PO CONSTIPATION; Start 12/22/18 at 17:00 Sodium Chloride (NS) -To prime the dialy... DIRECTED FOR HD PRN IV SBP<90; Start 12/22/18 at 17:00 Assessment/Plan Hospital Course (Demo Recall) P-atrial fibrillation rapid ventricular response: Currently back in sinus rhythm fungemia /fungal urinary tract infection Status post right hand hematoma: Status post I&D Renal failure on dialysis Hypertension Dementia Anemia Possible GI bleed: Status post EGD AI Recommendations: transfusion with HD prn not on full anticoagulation due to the fall risk as well as anemia cont beta-farrah Dialysis as per renal team Neuro workup and treatment as per internal medicine Antibiotic as per ID and internal medicine asa for now and monitor Thank you for his referral. We will continue to follow along with you as needed basis CHRISTEN ESCOBEDO MD [facility] CHRISTEN ESCOBEDO MD Dec 23, 2018 09:45
[2018-12-23] MEDS: GUAIFENESIN/DM 5ML CUP PO PRN (10:44)
[2018-12-23] MEDS ORDERED: VANCOMYCIN 1 GM (PMX) 250 ML IVPB SCH (11:00)
--- NOTE | 2018-12-23 11:04 | CONS ---
Assessment/Plan Assessment/Plan Hospital Course (Demo Recall) No events over night, looks comfortable, no fevers Microbiology: Repeat blood cultures negative, urine culture growing Dominique glabrata Blood culture repeated on November 29 grew Dominique glabrata blood cultures since December 01 that were drawn from permacath negative blood culture on December 03 negative, urine culture growing C glabrata Indwelling: Left chest permacath, PEG Physical examination: Chronically ill-appearing elderly woman who is awake, confused, in no distress. Head atraumatic normocephalic. Neck is supple. Chest rise symmetrical breath sounds diminished bases. Heart: S1-S2. Abdomen soft bowel sounds present, right upper extremity Armani wrapped Assessment: 1. Recurrent UTI 1. S/p Fungemia secondary to urinary tract infection 2. S/p pneumonia 3. Right hand hematoma, status post I&D 11/17/18 4. Status post VRE bacteremia/new Pcath 5. End-stage renal disease, hemodialysis dependent 6. Dementia 7. Failure to thrive 8. Diabetes 9. Anemia 10. S/p sepsis 11. P Afib Plan: Clinically stable, continue voriconazole, dc abx Consultation Date/Type/Reason Admit Date/Time Nov 16, 2018 at 05:51 Initial Consult Date 11/16/18 Type of Consult id Requesting Provider: DYLON WALLS MD Date/Time of Note DATE: 12/23/18 TIME: 11:03 Exam/Review of Systems Exam Vitals Vital Signs Date Temp Pulse Resp B/P (MAP) Pulse Ox O2 O2 Flow FiO2 Time Delivery Rate 12/23/18 Nasal 2.5 08:00 Cannula 12/23/18 98.5 70 18 146/65 100 08:00 (92) Intake and Output 12/22/18 12/22/18 12/23/18 1515:00 23:00 07:00 IntakeIntake Total 390 ml 80 ml OutputOutput Total 2400 ml BalanceBalance -2400 ml 390 ml 80 ml Results Result Diagram: 12/22/18 0539 12/22/18 0539 Results 24hrs Laboratory Tests Test 12/22/18 13:11 12/23/18 00:37 12/23/18 07:28 Bedside Glucose 182 170 136 Medications Medication Current Medications IV Flush (NS 3 ml) 3 ml PER PROTOCOL IV ; Start 11/16/18 at 09:00 Ondansetron HCl (Zofran Inj) 4 mg Q6H PRN IV NAUSEA AND/OR VOMITING Last administered on 12/19/18 05:53; Admin Dose 4 MG; Start 11/16/18 at 09:00 Hydralazine HCl (Apresoline) 10 mg Q4H PRN IV ELEVATED BLOOD PRESSURE Last administered on 12/22/18 19:40; Admin Dose 10 MG; Start 11/17/18 at 10:30 Acetaminophen/ Hydrocodone Bitart ([place] (5/325)) 1 tab Q3H PRN PO MODERATE PAIN LEVEL 4-6 Last administered on 12/06/18 15:38; Admin Dose 1 TAB; Start 11/17/18 at 14:30 Albumin Human 50 ml @ 100 mls/hr WITH DIALYSIS PRN IV SBP<90 Last administered on 12/13/18 11:03; Admin Dose 100 MLS/HR; Start 11/18/18 at 14:30 Morphine Sulfate (morphine) 6 mg Q4H PRN PO SEVERE PAIN LEVEL 7-10 Last administered on 12/13/18 21:31; Admin Dose 6 MG; Start 11/18/18 at 23:00 Docusate Sodium (Colace Liquid Cup) 100 mg DAILY GTB Last administered on 13:06; Admin Dose 100 MG; Start 11/19/18 at 09:30 Multivit/Ca Carb/ B Cmplx/FA/Prenat (Kianna-Roque) 1 tab DAILY GTB Last administered on 12/23/18 09:36; Admin Dose 1 TAB; Start 11/24/18 at 09:00 Lansoprazole (Prevacid) 30 mg DAILY GTB Last administered on 12/23/18 09:34; Admin Dose 30 MG; Start 11/26/18 at 09:00 Acetaminophen (Tylenol Supp) 650 mg Q4H PRN [place] MILD PAIN(1-3) OR TEMP>38C Last administered on 11/26/18 08:32; Admin Dose 650 MG; Start 11/26/18 at 08:30 Epoetin Michael (Epogen (Esrd)) 4,000 units MoWeFr@17 SC Last administered on 12/22/18 19:39; Admin Dose 4,000 UNITS; Start 12/06/18 at 17:00 Hydralazine HCl (Apresoline) 50 mg Q8 PO Last administered on 12/23/18 06:03; Admin Dose 50 MG; Start 12/07/18 at 22:00 Sodium Chloride (NS) -To prime the dialy... DIRECTED FOR HD PRN IV HD; Start 12/07/18 at 17:30 Metoprolol Tartrate (Lopressor) 100 mg BID GTB Last administered on 12/23/18 09:37; Admin Dose 100 MG; Start 12/13/18 at 21:00 Aspirin (Halfprin) 81 mg DAILY PO Last administered on 12/23/18 09:37; Admin Dose 81 MG; Start 12/13/18 at 19:30 Senna (Senokot) 1 tab BID PO Last administered on 12/23/18 09:37; Admin Dose 1 TAB; Start 12/17/18 at 21:00 Acetaminophen (Tylenol Tab) 650 mg Q6H PRN PO PAIN LEVEL 1-3 OR FEVER Last administered on 12/21/18 05:01; Admin Dose 650 MG; Start 12/17/18 at 15:00 Albuterol/ Ipratropium (Duoneb) 3 ml Q6H RESP THERAPY PRN HHN sob Last administered on 12/19/18 03:51; Admin Dose 3 ML; Start 12/17/18 at 09:00 Docusate Sodium (Colace) 100 mg Q12H PRN PO CONSTIPATION Last administered on 12/21/18 05:01; Admin Dose 100 MG; Start 12/17/18 at 21:00 Ferrous Sulfate (Feosol Liquid Cup) 300 mg BID GTB Last administered on 09:34; Admin Dose 300 MG; Start 12/17/18 at 21:00 Guaifenesin/ Dextromethorphan (Robitussin Dm Liquid Cup) 5 ml Q4H PRN PO cough Last administered on 12/23/18 10:44; Admin Dose 5 ML; Start 12/17/18 at 18:00 Linagliptin (Tradjenta) 5 mg DAILY GTB Last administered on 12/23/18 09:36; Admin Dose 5 MG; Start 12/17/18 at 09:00 Folic Acid (Folic Acid) 1 mg DAILY GTB Last administered on 12/23/18 09:36; Admin Dose 1 MG; Start 12/18/18 at 09:00 Vancomycin HCl (Vanco Iv Per Pharmacy) VANCOMYCIN PER PHARMACY PER PROTOCOL XX ; Start 12/19/18 at 09:30 Meropenem/Sodium Chloride 50 ml @ 100 mls/hr Q12 IVPB Last administered on 12/23/18at 09:37; Admin Dose 100 MLS/HR; Start 12/19/18 at 11:00 Metoclopramide HCl (Reglan) 5 mg Q8 PRN IV VOMITTING; Start 12/20/18 at 10:00 IV Flush (NS 10 ml) 10 ml AFTER DIALYSIS CATHETER ; Start 12/22/18 at 10:00 Voriconazole (Vfend) 200 mg BID PO Last administered on 12/23/18at 09:34; Admin Dose 200 MG; Start 12/22/18 at 11:00 Magnesium Hydroxide (Milk Of Mag) 30 ml DAILY PRN PO CONSTIPATION; Start 12/22/18 at 17:00 Sodium Chloride (NS) -To prime the dialy... DIRECTED FOR HD PRN IV SBP<90; Start 12/22/18 at 17:00 PHYLICIA HOLCOMB NP Dec 23, 2018 11:04
--- NOTE | 2018-12-23 12:17 | CONS ---
Assessment/Plan Assessment/Plan Assessment/Plan (Daily) Assessment/Plan Hospital Course (Demo Recall) 83 yo female in ESRD on HD presents for melena and anemia and also found to have edematous Rt hand/wrist 1. UGIB manifested through melena and anemia -no melena noted or GI bleeding noted by nursing staff -RESOLVED 2. Anemia, acute on chronic, acute likely due to blood loss in rt hand -No evidence of active GI bleeding, consider etiology of blood loss anemia to be from hematoma in hand -Fe wnl, TIBC low, Ferritin, folate, b12 high, FOB neg -STABLE 3. ESRD on HD -Followed by nephrology 4. Hematoma of Rt hand and wrist -I and D drainage by Dr. Dean 11/17 -IMPROVED 5. Dysphagia -on tube feeds and pureed nectar for oral gratification 6. DM2 7. HTN 8. H/O diastolic dysfunction heart failure 9. S/P EGD 11/18 10. Moderate gastritis with no bleeding noted. 11. Hospital acquired pneumonia -improved 12. Yeast in urine cx -cx 12/20 12. Emesis x 1 -resolved Gastric biopsy results: Stomach, biopsy: -- Antral and oxyntic mucosa showing minimal plasma cell infiltration and small focus of intestinal metaplasia. -- No Helicobacter pylori is identified in Giemsa stain (positive control concurrently reviewed). -- No evidence of dysplasia or malignancy. Plan: Continue with tube feeds at 20cc/hr If pt vomits again, Dr Welch may switch g tube to GJ tube FOB negative Reglan 5 mg prior to meals, low dose to due ESRD Continue present care Monitor HH closely and for active GI bleeding Consultation Date/Type/Reason Admit Date/Time Nov 16, 2018 at 05:51 Initial Consult Date 11/16/18 Requesting Provider: DYLON WALLS MD Date/Time of Note DATE: 12/23/18 TIME: 12:17 24 HR Interval Summary Free Text/Dictation No emesis Constitutional: improved Exam/Review of Systems Exam Vitals Vital Signs Date Temp Pulse Resp B/P (MAP) Pulse Ox O2 O2 Flow FiO2 Time Delivery Rate 12/23/18 Nasal 2.5 08:00 Cannula 12/23/18 98.5 70 18 146/65 100 08:00 (92) Intake and Output 12/22/18 12/22/18 12/23/18 1515:00 23:00 07:00 IntakeIntake Total 390 ml 80 ml OutputOutput Total 2400 ml BalanceBalance -2400 ml 390 ml 80 ml Constitutional: alert, oriented, well developed Psych: no complaints, nl mood/affect Head: normocephalic, atraumatic Eyes: nl conjunctiva, EOMI, nl lids, nl sclera, PERRL ENMT: nl external ears & nose, nl lips & teeth, nl nasal mucosa & septum Neck: supple, non-tender Respiratory: clear to auscultation, normal air movement Cardiovascular: regular rate and rhythm, nl pulses Gastrointestinal: soft, nl liver, spleen, non-tender Musculoskeletal: nl extremities to inspection, nl gait and stance Extremities: normal pulses 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: ADMINISTRATIVE ASSISTANT II-XII intact, nl mental status, nl speech, nl strength Skin: nl turgor; No rash or lesions Lymph: nl lymph nodes Results Result Diagram: 12/22/1839 12/22/18538 Results 24hrs Laboratory Tests Test 12/22/18 13:11 12/23/18 00:37 12/23/18 07:28 Bedside Glucose 182 170 136 Medications Medication Current Medications IV Flush (NS 3 ml) 3 ml PER PROTOCOL IV ; Start 11/16/18 at 09:00 Ondansetron HCl (Zofran Inj) 4 mg Q6H PRN IV NAUSEA AND/OR VOMITING Last administered on 12/19/18 05:53; Admin Dose 4 MG; Start 11/16/18 at 09:00 Hydralazine HCl (Apresoline) 10 mg Q4H PRN IV ELEVATED BLOOD PRESSURE Last administered on 12/22/18 19:40; Admin Dose 10 MG; Start 11/17/18 at 10:30 Acetaminophen/ Hydrocodone Bitart ([place] (5/325)) 1 tab Q3H PRN PO MODERATE PAIN LEVEL 4-6 Last administered on 12/06/18 15:38; Admin Dose 1 TAB; Start 11/17/18 at 14:30 Albumin Human 50 ml @ 100 mls/hr WITH DIALYSIS PRN IV SBP<90 Last administered on 12/13/18 11:03; Admin Dose 100 MLS/HR; Start 11/18/18 at 14:30 Morphine Sulfate (morphine) 6 mg Q4H PRN PO SEVERE PAIN LEVEL 7-10 Last administered on 12/13/18 21:31; Admin Dose 6 MG; Start 11/18/18 at 23:00 Docusate Sodium (Colace Liquid Cup) 100 mg DAILY GTB Last administered on 12/22/18 13:06; Admin Dose 100 MG; Start 11/19/18 at 09:30 Multivit/Ca Carb/ B Cmplx/FA/Prenat (Kianna-Roque) 1 tab DAILY GTB Last administered on 12/23/18 09:36; Admin Dose 1 TAB; Start 11/24/18 at 09:00 Lansoprazole (Prevacid) 30 mg DAILY GTB Last administered on 12/23/18 09:34; Admin Dose 30 MG; Start 11/26/18 at 09:00 Acetaminophen (Tylenol Supp) 650 mg Q4H PRN [place] MILD PAIN(1-3) OR TEMP>38C Last administered on 11/26/18 08:32; Admin Dose 650 MG; Start 11/26/18 at 08:30 Epoetin Michael (Epogen (Esrd)) 4,000 units MoWeFr@17 SC Last administered on 12/10 19:39; Admin Dose 4,000 UNITS; Start 12/06/18 at 17:00 Hydralazine HCl (Apresoline) 50 mg Q8 PO Last administered on 12/23/18 06:03; Admin Dose 50 MG; Start 12/07/18 at 22:00 Sodium Chloride (NS) -To prime the dialy... DIRECTED FOR HD PRN IV HD; Start 12/07/18 at 17:30 Metoprolol Tartrate (Lopressor) 100 mg BID GTB Last administered on 12/23/18 09:37; Admin Dose 100 MG; Start 12/13/18 at 21:00 Aspirin (Halfprin) 81 mg DAILY PO Last administered on 12/23/18 09:37; Admin Dose 81 MG; Start 12/13/18 at 19:30 Senna (Senokot) 1 tab BID PO Last administered on 12/23/18 09:37; Admin Dose 1 TAB; Start 12/17/18 at 21:00 Acetaminophen (Tylenol Tab) 650 mg Q6H PRN PO PAIN LEVEL 1-3 OR FEVER Last administered on 12/21/18 05:01; Admin Dose 650 MG; Start 12/17/18 at 15:00 Albuterol/ Ipratropium (Duoneb) 3 ml Q6H RESP THERAPY PRN HHN sob Last administered on 12/19/18 03:51; Admin Dose 3 ML; Start 12/17/18 at 09:00 Docusate Sodium (Colace) 100 mg Q12H PRN PO CONSTIPATION Last administered on 12/21/18 05:01; Admin Dose 100 MG; Start 12/17/18 at 21:00 Ferrous Sulfate (Feosol Liquid Cup) 300 mg BID GTB Last administered on 12/23/18 09:34; Admin Dose 300 MG; Start 12/17/18 at 21:00 Guaifenesin/ Dextromethorphan (Robitussin Dm Liquid Cup) 5 ml Q4H PRN PO cough Last administered on 12/23/18 10:44; Admin Dose 5 ML; Start 12/17/18 at 18:00 Linagliptin (Tradjenta) 5 mg DAILY GTB Last administered on 12/23/18 09:36; Admin Dose 5 MG; Start 12/17/18 at 09:00 Folic Acid (Folic Acid) 1 mg DAILY GTB Last administered on 12/23/18 09:36; Admin Dose 1 MG; Start 12/18/18 at 09:00 Metoclopramide HCl (Reglan) 5 mg Q8 PRN IV VOMITTING; Start 12/20/18 at 10:00 IV Flush (NS 10 ml) 10 ml AFTER DIALYSIS CATHETER ; Start 12/22/18 at 10:00 Voriconazole (Vfend) 200 mg BID PO Last administered on 12/23/18 09:34; Admin Dose 200 MG; Start 12/22/18 at 11:00 Magnesium Hydroxide (Milk Of Mag) 30 ml DAILY PRN PO CONSTIPATION; Start 12/22/18 at 17:00 Sodium Chloride (NS) -To prime the dialy... DIRECTED FOR HD PRN IV SBP<90; Start 12/22/18 at 17:00 CHRISS WELCH MD Dec 23, 2018 12:17
[2018-12-23 14:11] VITALS: BP 143/57; PULSE 62; RESP 22
--- NOTE | 2018-12-23 15:42 | CONS ---
Assessment/Plan Assessment/Plan Hospital Course (Demo Recall) 83 y/o with Hospital Course (Demo Recall) 1. End-stage renal disease on hemodialysis. 2. Gastrointestinal bleed with melena.resolved 3. Hypertension. 4. Diabetes. 5. Right hand swelling, s/p I and D on 11/17/18 6. History of falls. 7. Vascular dementia. 8. History of sepsis with VRE. 9. Dysphagia, status post G-tube. 10. History of hip fracture. 11. Thrombocytopenia. 12. Atherosclerotic heart disease. 13. Pneumonia left side 14. Anemia 15 YEAST BACTERIMIA LIKELY DUE TO UTI 16 Paroxsymal AFib now in sinus Assessment/Plan (Daily) - Hd MWF, Hd tmw - dc mg supplements due to high mg - cw with permacath -avoid nephrotoxic drugs -HD MWFr -c/w epogen - Aspiration precautions Consultation Date/Type/Reason Admit Date/Time Nov 16, 2018 at 05:51 Initial Consult Date 11/16/18 Requesting Provider: DYLON WALLS MD Date/Time of Note DATE: 12/23/18 TIME: 15:41 24 HR Interval Summary Free Text/Dictation started on Vfend again. Exam/Review of Systems Exam Vitals Vital Signs Date Temp Pulse Resp B/P (MAP) Pulse Ox O2 O2 Flow FiO2 Time Delivery Rate 12/23/18 62 22 143/57 100 14:11 (85) 12/23/18 3.0 13:01 12/23/18 Nasal 12:41 Cannula 12/23/18 98.5 08:00 Intake and Output 12/22/18 12/22/18 12/23/18 1515:00 23:00 07:00 IntakeIntake Total 390 ml 80 ml OutputOutput Total 2400 ml BalanceBalance -2400 ml 390 ml 80 ml Exam lefteft chest Permcath Constitutional: frail Psych: confusion Cardiovascular: regular rate and rhythm Gastrointestinal: soft, other (g tube) Skin: ecchymosis, laceration Results Result Diagram: 12/22/18 0539 12/22/18 0539 Results 24hrs Laboratory Tests Test 12/23/18 00:37 12/23/18 07:28 Bedside Glucose 170 136 Medications Medication Current Medications IV Flush (NS 3 ml) 3 ml PER PROTOCOL IV ; Start 11/16/18 at 09:00 Ondansetron HCl (Zofran Inj) 4 mg Q6H PRN IV NAUSEA AND/OR VOMITING Last administered on 12/19/18 05:53; Admin Dose 4 MG; Start 11/16/18 at 09:00 Hydralazine HCl (Apresoline) 10 mg Q4H PRN IV ELEVATED BLOOD PRESSURE Last administered on 12/22/18 19:40; Admin Dose 10 MG; Start 11/17/18 at 10:30 Acetaminophen/ Hydrocodone Bitart ([place] (5/325)) 1 tab Q3H PRN PO MODERATE PAIN LEVEL 4-6 Last administered on 12/06/18 15:38; Admin Dose 1 TAB; Start 11/17/18 at 14:30 Albumin Human 50 ml @ 100 mls/hr WITH DIALYSIS PRN IV SBP<90 Last administered on 12/13/18 11:03; Admin Dose 100 MLS/HR; Start 11/18/18 at 14:30 Morphine Sulfate (morphine) 6 mg Q4H PRN PO SEVERE PAIN LEVEL 7-10 Last administered on 12/13/18 21:31; Admin Dose 6 MG; Start 11/18/18 at 23:00 Docusate Sodium (Colace Liquid Cup) 100 mg DAILY GTB Last administered on 12/22/18 13:06; Admin Dose 100 MG; Start 11/19/18 at 09:30 Multivit/Ca Carb/ B Cmplx/FA/Prenat (Kianna-Roque) 1 tab DAILY GTB Last administered on 12/23/18 09:36; Admin Dose 1 TAB; Start 11/24/18 at 09:00 Lansoprazole (Prevacid) 30 mg DAILY GTB Last administered on 12/23/18 09:34; Admin Dose 30 MG; Start 11/26/18 at 09:00 Acetaminophen (Tylenol Supp) 650 mg Q4H PRN [place] MILD PAIN(1-3) OR TEMP>38C Last administered on 11/26/18 08:32; Admin Dose 650 MG; Start 11/26/18 at 08:30 Epoetin Michael (Epogen (Esrd)) 4,000 units MoWeFr@17 SC Last administered on 12/22/18 19:39; Admin Dose 4,000 UNITS; Start 12/06/18 at 17:00 Hydralazine HCl (Apresoline) 50 mg Q8 PO Last administered on 12/23/18 14:12; Admin Dose 50 MG; Start 12/07/18 at 22:00 Sodium Chloride (NS) -To prime the dialy... DIRECTED FOR HD PRN IV HD; Start 12/07/18 at 17:30 Metoprolol Tartrate (Lopressor) 100 mg BID GTB Last administered on 12/23/18 09:37; Admin Dose 100 MG; Start 12/13/18 at 21:00 Aspirin (Halfprin) 81 mg DAILY PO Last administered on 12/23/18 09:37; Admin Dose 81 MG; Start 12/13/18 at 19:30 Senna (Senokot) 1 tab BID PO Last administered on 12/23/18 09:37; Admin Dose 1 TAB; Start 12/17/18 at 21:00 Acetaminophen (Tylenol Tab) 650 mg Q6H PRN PO PAIN LEVEL 1-3 OR FEVER Last administered on 12/21/18 05:01; Admin Dose 650 MG; Start 12/17/18 at 15:00 Albuterol/ Ipratropium (Duoneb) 3 ml Q6H RESP THERAPY PRN HHN sob Last administered on 12/19/18 03:51; Admin Dose 3 ML; Start 12/17/18 at 09:00 Docusate Sodium (Colace) 100 mg Q12H PRN PO CONSTIPATION Last administered on 12/21/18 05:01; Admin Dose 100 MG; Start 12/17/18 at 21:00 Ferrous Sulfate (Feosol Liquid Cup) 300 mg BID GTB Last administered on 12/23/18 09:34; Admin Dose 300 MG; Start 12/17/18 at 21:00 Guaifenesin/ Dextromethorphan (Robitussin Dm Liquid Cup) 5 ml Q4H PRN PO cough Last administered on 12/23/18 10:44; Admin Dose 5 ML; Start 12/17/18 at 18:00 Linagliptin (Tradjenta) 5 mg DAILY GTB Last administered on 12/23/18 09:36; Admin Dose 5 MG; Start 12/17/18 at 09:00 Folic Acid (Folic Acid) 1 mg DAILY GTB Last administered on 12/23/18 09:36; Admin Dose 1 MG; Start 12/18/18 at 09:00 Metoclopramide HCl (Reglan) 5 mg Q8 PRN IV VOMITTING; Start 12/20/18 at 10:00 IV Flush (NS 10 ml) 10 ml AFTER DIALYSIS CATHETER ; Start 12/22/18 at 10:00 Voriconazole (Vfend) 200 mg BID PO Last administered on 12/23/18at 09:34; Admin Dose 200 MG; Start 12/22/18 at 11:00 Magnesium Hydroxide (Milk Of Mag) 30 ml DAILY PRN PO CONSTIPATION; Start 12/22/18 at 17:00 Sodium Chloride (NS) -To prime the dialy... DIRECTED FOR HD PRN IV SBP<90; Start 12/22/18 at 17:00 JOSE RAUL ANDREWS MD Dec 23, 2018 15:42
--- NOTE | 2018-12-23 15:50 | PN ---
DATE: 12/23/2018 SUBJECTIVE: The patient was seen, alert, but nonverbal currently, but overall comfortable. PHYSICAL EXAMINATION: VITAL SIGNS: The patient is afebrile. Temperature 98.5, pulse 62, respirations 22, blood pressure 1 43/57, saturation 100% on 2 liters. GENERAL: The patient was transferred to the medical/surgical floor. The patient is pale, looking at me, and nonverbal currently. CARDIOVASCULAR: S1, S2. LUNGS: Decreased bilaterally. Faint rhonchi at the bases. ABDOMEN: Soft. G-tube in place. EXTREMITIES: No clubbing, cyanosis or edema. LABORATORY DATA: a white count of 10.2 and hemoglobin of 8.2. Last glucose level was 126, 170 and 182. MICROBIOLOGY: Urine culture did show Dominique glabrata 30,000 to 40,000 on 12/20/2018. Blood culture dated 12/18/2018 and 12/20/2018 are all negative. MEDICATIONS: 1. Milk of Magnesia p.r.n. 2. Vfend 200 b.i.d. 3. Reglan p.r.n. 4. Folic acid 1 mg daily. 5. Senna 1 tab b.i.d. 6. Colace 100 p.r.n. 7. Ferrous sulfate 300 b.i.d. 8. Robitussin p.r.n. 9. Tylenol p.r.n. 10. DuoNeb p.r.n. 11. Tradjenta 5 mg daily. 12. Lopressor 100 b.i.d. 13. Aspirin 81 mg daily. 14. Hydralazine 50 q.8 hours. 15. Epogen 4000 every Thursday, Thursday, Thursday. 16. Prevacid 20 mg daily. 17. Tylenol p.r.n. 18. Kianna-Roque daily. 19. Colace 100 daily. 20. Morphine p.r.n. 21. Albumin as directed. 22. [place] p.r.n. 23. Hydralazine p.r.n. 24. Zofran p.r.n. ASSESSMENT AND PLAN: This is an 83-year-old [place] female with end-stage renal disease, advanced d ementia, cerebrovascular accident, chronic obstructive pulmonary disease, status post evacuation of r ight hand hematoma status post recent treatment for line sepsis, bacteremia, fungemia, urinary tract infection and overall waxing and waning mental status. The patient recently was now treated again fo r encephalopathy and aspiration pneumonia. Antibiotics will be discontinued today per ID. 1. Respiratory. Continue aspiration precautions. O2 support as needed. 2. Cardiovascular: Titrate blood pressure medication up as needed. 3. Anemia. Transfuse p.r.n., on Epogen and iron supplements. 4. End-stage renal disease, dialysis 3 times a week. 5. Diabetes mellitus. Glucose level is in the 100s. Observe. Continue Tradjenta. 6. Dysphagia. Keep on an NG tube feeding for now as patient has risk of aspiration. Keep head elev ated while feeding. 7. Advanced dementia with poor quality of life, prolonged hospitalization and overall multiple hospi talizations in the past year and she resides at the senior care. Overall, the patient remains full code. Overall prognosis is poor. Continue close monitoring as the patient has risk for fall. liability claims manager to assist with placement. Follow up tomorrow's labs. Dictated By: DYLON HULL/MADAN Conf#: [id number] DID#: [id number] CC: CHRISS WELCH MD;*EndCC*
[2018-12-23] MEDS ORDERED: SODIUM CHLORIDE 0.9% 1L BAG IV PRN (16:00)
[2018-12-23 20:57] VITALS: BP 148/63; PULSE 67; RESP 18
[2018-12-24] VITALS (19 sets, daily range): BP systolic 105–161; BP diastolic 50–94; PULSE 69–77; RESP 17–20
[2018-12-24] MEDS: SENNA TAB PO SCH ×2 (08:55→21:16)
[2018-12-24] MEDS: ASPIRIN (EC) 81 MG TAB PO SCH (08:55)
[2018-12-24] MEDS: FERROUS SULFATE 60 MG/ML 5ML CUP GTB SCH ×2 (08:55→21:16)
[2018-12-24] MEDS: MULTIVIT/CA CARB/B CMPLX/FA TAB GTB SCH (08:55)
[2018-12-24] MEDS: VORICONAZOLE 200 MG TAB PO SCH ×2 (08:55→21:16)
[2018-12-24] MEDS: LANSOPRAZOLE 30 MG CAP GTB SCH (08:55)
[2018-12-24] MEDS: DOCUSATE SODIUM 10 MG/ML (10ML CUP) GTB SCH (08:55)
[2018-12-24] MEDS: FOLIC ACID 1 MG TAB GTB SCH (08:56)
[2018-12-24] MEDS: LINAGLIPTIN 5 MG TABLET GTB SCH (08:58)
[2018-12-24] MEDS: METOPROLOL 50 MG TAB GTB SCH ×2 (09:00→21:17)
--- NOTE | 2018-12-24 10:57 | CONS ---
Assessment/Plan Assessment/Plan Hospital Course (Demo Recall) No events over night, looks comfortable, no fevers Microbiology: Repeat blood cultures negative, urine culture growing Dominique glabrata Blood culture repeated on November 29 grew Dominique glabrata blood cultures since December 01 that were drawn from permacath negative blood culture on December 03 negative, urine culture growing C glabrata Indwelling: Left chest permacath, PEG Physical examination: Chronically ill-appearing elderly woman who is awake, confused, in no distress. Head atraumatic normocephalic. Neck is supple. Chest rise symmetrical breath sounds diminished bases. Heart: S1-S2. Abdomen soft bowel sounds present, right upper extremity Armani wrapped Assessment: 1. Recurrent UTI==> T glabrata 1. S/p Fungemia secondary to urinary tract infection 2. S/p pneumonia 3. Right hand hematoma, status post I&D 11/17/18 4. Status post VRE bacteremia/new Pcath 5. End-stage renal disease, hemodialysis dependent 6. Dementia 7. Failure to thrive 8. Diabetes 9. Anemia 10. S/p sepsis 11. P Afib Plan: Stable, continue voriconazole Consultation Date/Type/Reason Admit Date/Time Nov 16, 2018 at 05:51 Initial Consult Date 11/16/18 Type of Consult id Requesting Provider: DYLON WALLS MD Date/Time of Note DATE: 12/24/18 TIME: 10:56 Exam/Review of Systems Exam Vitals Vital Signs Date Temp Pulse Resp B/P (MAP) Pulse Ox O2 O2 Flow FiO2 Time Delivery Rate 12/24/18 97.9 72 18 153/63 96 08:30 (93) 12/24/18 3.0 05:23 12/23/18 Nasal 23:49 Cannula Intake and Output 12/23/18 12/23/18 12/24/18 1515:00 23:00 07:00 IntakeIntake Total 50 ml 300 ml BalanceBalance 50 ml 300 ml Results Result Diagram: 12/24/1862112/24/18 06 Results 24hrs Laboratory Tests Test 12/24/18 06:22 12/24/18 08:57 White Blood Count 7.0 # Red Blood Count 2.99 L Hemoglobin 7.8 L Hematocrit 25.3 L Mean Corpuscular Volume 84.6 Mean Corpuscular Hemoglobin 26.1 L Mean Corpuscular Hemoglobin Concent 30.8 L Red Cell Distribution Width 17.2 H Platelet Count 195 Mean Platelet Volume 12.2 H Immature Granulocytes % 3.000 H Neutrophils % 55.1 Lymphocytes % 19.2 Monocytes % 14.1 H Eosinophils % 8.2 H Basophils % 0.4 Nucleated Red Blood Cells % 0.9 H Immature Granulocytes # 0.210 H Neutrophils # 3.8 Lymphocytes # 1.3 Monocytes # 1.0 H Eosinophils # 0.6 H Basophils # 0.0 Nucleated Red Blood Cells # 0.1 H Sodium Level 133 L Potassium Level 4.4 Chloride Level 94 L Carbon Dioxide Level 31 Anion Gap 8 Blood Urea Nitrogen 62 H Creatinine 2.67 H Est Glomerular Filtrat Rate mL/min Glucose Level 122 Calcium Level 8.3 L Phosphorus Level 4.7 Magnesium Level 3.0 H Bedside Glucose 114 Medications Medication Current Medications IV Flush (NS 3 ml) 3 ml PER PROTOCOL IV ; Start 11/16/18 at 09:00 Ondansetron HCl (Zofran Inj) 4 mg Q6H PRN IV NAUSEA AND/OR VOMITING Last a dministered on 12/19/18at 05:53; Admin Dose 4 MG; Start 11/16/18 at 09:00 Hydralazine HCl (Apresoline) 10 mg Q4H PRN IV ELEVATED BLOOD PRESSURE Last administered on 12/22/18 19:40; Admin Dose 10 MG; Start 11/17/18 at 10:30 Acetaminophen/ Hydrocodone Bitart ([place] (5/325)) 1 tab Q3H PRN PO MODERATE P AIN LEVEL 4-6 Last administered on 12/06/18at 15:38; Admin Dose 1 TAB; Start 11/17/18 at 14:30 Albumin Human 50 ml @ 100 mls/hr WITH DIALYSIS PRN IV SBP<90 Last administered on 12/13/18 11:03; Admin Dose 100 MLS/HR; Start 11/18/18 at 14:30 Morphine Sulfate (morphine) 6 mg Q4H PRN PO SEVERE PAIN LEVEL 7-10 Last administered on 12/13/18 21:31; Admin Dose 6 MG; Start 11/18/18 at 23:00 Docusate Sodium (Colace Liquid Cup) 100 mg DAILY GTB Last administered on 12/24/18 08:55; Admin Dose 100 MG; Start 11/19/18 at 09:30 Multivit/Ca Carb/ B Cmplx/FA/Prenat (Kianna-Roque) 1 tab DAILY GTB Last administe red on 12/24/18 08:55; Admin Dose 1 TAB; Start 11/24/18 at 09:00 Lansoprazole (Prevacid) 30 mg DAILY GTB Last administered on 12/24/18 08:55; Admin Dose 30 MG; Start 11/26/18 at 09:00 Acetaminophen (Tylenol Supp) 650 mg Q4H PRN [place] MILD PAIN(1-3) OR TEMP>38C Last administered on 11/26/18 08:32; Admin Dose 650 MG; Start 11/26/18 at 08:30 Epoetin Michael (Epogen (Esrd)) 4,000 units MoWeFr@17 SC Last administered on 12/22/18 19:39; Admin Dose 4,000 UNITS; Start 12/06/18 at 17:00 Hydralazine HCl (Apresoline) 50 mg Q8 PO Last administered on 12/23/18 21:03; Admin Dose 50 MG; Start 12/07/18 at 22:00 Sodium Chloride (NS) -To prime the dialy... DIRECTED FOR HD PRN IV HD; Start 12/07/18 at 17:30 Metoprolol Tartrate (Lopressor) 100 mg BID GTB Last administered on 12/23/18 21:03; Admin Dose 100 MG; Start 12/13/18 at 21:00 Aspirin (Halfprin) 81 mg DAILY PO Last administered on 12/24/18 08:55; Admin Dose 81 MG; Start 12/13/18 at 19:30 Senna (Senokot) 1 tab BID PO Last administered on 12/24/18 08:55; Admin Dose 1 TAB; Start 12/17/18 at 21:00 Acetaminophen (Tylenol Tab) 650 mg Q6H PRN PO PAIN LEVEL 1-3 OR FEVER Last administered on 12/21/18 05:01; Admin Dose 650 MG; Start 12/17/18 at 15:00 Albuterol/ Ipratropium (Duoneb) 3 ml Q6H RESP THERAPY PRN HHN sob Last administered on 12/19/18 03:51; Admin Dose 3 ML; Start 12/17/18 at 09:00 Docusate Sodium (Colace) 100 mg Q12H PRN PO CONSTIPATION Last administered on 12/21/18at 05:01; Admin Dose 100 MG; Start 12/17/18 at 21:00 Ferrous Sulfate (Feosol Liquid Cup) 300 mg BID GTB Last administered on 12/24/18at 08:55; Admin Dose 300 MG; Start 12/17/18 at 21:00 Guaifenesin/ Dextromethorphan (Robitussin Dm Liquid Cup) 5 ml Q4H PRN PO cough Last administered on 12/23/18at 10:44; Admin Dose 5 ML; Start 12/17/18 at 18:00 Linagliptin (Tradjenta) 5 mg DAILY GTB Last administered on 12/24/18 08:58; Admin Dose 5 MG; Start 12/17/18 at 09:00 Folic Acid (Folic Acid) 1 mg DAILY GTB Last administered on 12/24/18 08:56; Admin Dose 1 MG; Start 12/18/18 at 09:00 Metoclopramide HCl (Reglan) 5 mg Q8 PRN IV VOMITTING; Start 12/20/18 at 10:00 IV Flush (NS 10 ml) 10 ml AFTER DIALYSIS CATHETER ; Start 12/22/18 at 10:00 Voriconazole (Vfend) 200 mg BID PO Last administered on 12/24/18 08:55; Admin Dose 200 MG; Start 12/22/18 at 11:00 Magnesium Hydroxide (Milk Of Mag) 30 ml DAILY PRN PO CONSTIPATION; Start 12/22/18 at 17:00 Sodium Chloride (NS) -To prime the dialy... DIRECTED FOR HD PRN IV HD; Start 12/23/18 at 16:00 PHYLICIA HOLCOMB NP Dec 24, 2018 10:57
--- NOTE | 2018-12-24 10:57 | CONS ---
Assessment/Plan Assessment/Plan Hospital Course (Demo Recall) 1. End-stage renal disease on hemodialysis. 2. Gastrointestinal bleed with melena. 3. Hypertension. 4. Diabetes. 5. Right hand swelling, s/p I and D on 11/17/18 6. History of falls. 7. Vascular dementia. 8. History of sepsis with VRE. 9. Dysphagia, status post G-tube. 10. History of hip fracture. 11. Thrombocytopenia. 12. Atherosclerotic heart disease. 13. Pneumonia left side 14. Anemia 15. Fungemia. Assessment/Plan (Daily) - Hd MWF, Hd today - cw with permacath -avoid nephrotoxic drugs -HD MWFr -c/w epogen - Aspiration precautions Consultation Date/Type/Reason Admit Date/Time Nov 16, 2018 at 05:51 Initial Consult Date 11/16/18 Type of Consult nephrology Requesting Provider: DYLON WALLS MD Date/Time of Note DATE: 12/24/18 TIME: 10:55 Exam/Review of Systems Exam Vitals Vital Signs Date Temp Pulse Resp B/P (MAP) Pulse Ox O2 O2 Flow FiO2 Time Delivery Rate 12/24/18 97.9 72 18 153/63 96 08:30 (93) 12/24/18 3.0 05:23 12/23/18 Nasal 23:49 Cannula Intake and Output 12/23/18 12/23/18 12/24/18 1515:00 23:00 07:00 IntakeIntake Total 50 ml 300 ml BalanceBalance 50 ml 300 ml Exam eft chest Permcath Constitutional: frail Neck: supple Respiratory: clear to auscultation Cardiovascular: regular rate and rhythm Gastrointestinal: soft, other (GT) 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: confused Results Result Diagram: 12/24/1822 12/24/18 0622 Results 24hrs Laboratory Tests Test 12/24/18 06:22 12/24/18 08:57 White Blood Count 7.0 # Red Blood Count 2.99 L Hemoglobin 7.8 L Hematocrit 25.3 L Mean Corpuscular Volume 84.6 Mean Corpuscular Hemoglobin 26.1 L Mean Corpuscular Hemoglobin Concent 30.8 L Red Cell Distribution Width 17.2 H Platelet Count 195 Mean Platelet Volume 12.2 H Immature Granulocytes % 3.000 H Neutrophils % 55.1 Lymphocytes % 19.2 Monocytes % 14.1 H Eosinophils % 8.2 H Basophils % 0.4 Nucleated Red Blood Cells % 0.9 H Immature Granulocytes # 0.210 H Neutrophils # 3.8 Lymphocytes # 1.3 Monocytes # 1.0 H Eosinophils # 0.6 H Basophils # 0.0 Nucleated Red Blood Cells # 0.1 H Sodium Level 133 L Potassium Level 4.4 Chloride Level 94 L Carbon Dioxide Level 31 Anion Gap 8 Blood Urea Nitrogen 62 H Creatinine 2.67 H Est Glomerular Filtrat Rate mL/min Glucose Level 122 Calcium Level 8.3 L Phosphorus Level 4.7 Magnesium Level 3.0 H Bedside Glucose 114 Medications Medication Current Medications IV Flush (NS 3 ml) 3 ml PER PROTOCOL IV ; Start 11/16/18 at 09:00 Ondansetron HCl (Zofran Inj) 4 mg Q6H PRN IV NAUSEA AND/OR VOMITING Last administered on 12/19/18 05:53; Admin Dose 4 MG; Start 11/16/18 at 09:00 Hydralazine HCl (Apresoline) 10 mg Q4H PRN IV ELEVATED BLOOD PRESSURE Last administered on 12/22/18 19:40; Admin Dose 10 MG; Start 11/17/18 at 10:30 Acetaminophen/ Hydrocodone Bitart ([place] (5/325)) 1 tab Q3H PRN PO MODERATE PAIN LEVEL 4-6 Last administered on 12/06/18 15:38; Admin Dose 1 TAB; Start 11/17/18 at 14:30 Albumin Human 50 ml @ 100 mls/hr WITH DIALYSIS PRN IV SBP<90 Last administered on 12/13/18 11:03; Admin Dose 100 MLS/HR; Start 11/18/18 at 14:30 Morphine Sulfate (morphine) 6 mg Q4H PRN PO SEVERE PAIN LEVEL 7-10 Last administered on 12/13/18 21:31; Admin Dose 6 MG; Start 11/18/18 at 23:00 Docusate Sodium (Colace Liquid Cup) 100 mg DAILY GTB Last administered on 12/24/18 08:55; Admin Dose 100 MG; Start 11/19/18 at 09:30 Multivit/Ca Carb/ B Cmplx/FA/Prenat (Kianna-Roque) 1 tab DAILY GTB Last administered on 12/24/18 08:55; Admin Dose 1 TAB; Start 11/24/18 at 09:00 Lansoprazole (Prevacid) 30 mg DAILY GTB Last administered on 12/24/18 08:55; Admin Dose 30 MG; Start 11/26/18 at 09:00 Acetaminophen (Tylenol Supp) 650 mg Q4H PRN [place] MILD PAIN(1-3) OR TEMP>38C Last administered on 11/26/18 08:32; Admin Dose 650 MG; Start 11/26/18 at 08:30 Epoetin Michael (Epogen (Esrd)) 4,000 units MoWeFr@17 SC Last administered on 12/22/18 19:39; Admin Dose 4,000 UNITS; Start 12/06/18 at 17:00 Hydralazine HCl (Apresoline) 50 mg Q8 PO Last administered on 12/23/18 21:03; Admin Dose 50 MG; Start 12/07/18 at 22:00 Sodium Chloride (NS) -To prime the dialy... DIRECTED FOR HD PRN IV HD; Start 12/07/18 at 17:30 Metoprolol Tartrate (Lopressor) 100 mg BID GTB Last administered on 12/23/18 21:03; Admin Dose 100 MG; Start 12/13/18 at 21:00 Aspirin (Halfprin) 81 mg DAILY PO Last administered on 12/24/18 08:55; Admin Dose 81 MG; Start 12/13/18 at 19:30 Senna (Senokot) 1 tab BID PO Last administered on 12/24/18 08:55; Admin Dose 1 TAB; Start 12/17/18 at 21:00 Acetaminophen (Tylenol Tab) 650 mg Q6H PRN PO PAIN LEVEL 1-3 OR FEVER Last a dministered on 12/21/18 05:01; Admin Dose 650 MG; Start 12/17/18 at 15:00 Albuterol/ Ipratropium (Duoneb) 3 ml Q6H RESP THERAPY PRN HHN sob Last administered on 12/19/18 03:51; Admin Dose 3 ML; Start 12/17/18 at 09:00 Docusate Sodium (Colace) 100 mg Q12H PRN PO CONSTIPATION Last administered on 12/21/18 05:01; Admin Dose 100 MG; Start 12/17/18 at 21:00 Ferrous Sulfate (Feosol Liquid Cup) 300 mg BID GTB Last administered on 12/24/18at 08:55; Admin Dose 300 MG; Start 12/17/18 at 21:00 Guaifenesin/ Dextromethorphan (Robitussin Dm Liquid Cup) 5 ml Q4H PRN PO cough Last administered on 12/23/18at 10:44; Admin Dose 5 ML; Start 12/17/18 at 18:00 Linagliptin (Tradjenta) 5 mg DAILY GTB Last administered on 12/24/18at 08:58; Admin Dose 5 MG; Start 12/17/18 at 09:00 Folic Acid (Folic Acid) 1 mg DAILY GTB Last administered on 12/24/18at 08:56; Admin Dose 1 MG; Start 12/18/18 at 09:00 Metoclopramide HCl (Reglan) 5 mg Q8 PRN IV VOMITTING; Start 12/20/18 at 10:00 IV Flush (NS 10 ml) 10 ml AFTER DIALYSIS CATHETER ; Start 12/22/18 at 10:00 Voriconazole (Vfend) 200 mg BID PO Last administered on 12/24/18at 08:55; Admin Dose 200 MG; Start 12/22/18 at 11:00 Magnesium Hydroxide (Milk Of Mag) 30 ml DAILY PRN PO CONSTIPATION; Start 12/22/18 at 17:00 Sodium Chloride (NS) -To prime the dialy... DIRECTED FOR HD PRN IV HD; Start 12/23/18 at 16:00 FLAVIO CLAYTON Dec 24, 2018 10:57
--- NOTE | 2018-12-24 11:45 | CONS ---
Assessment/Plan Assessment/Plan Assessment/Plan (Daily) Assessment/Plan Hospital Course (Demo Recall) 83 yo female in ESRD on HD presents for melena and anemia and also found to have edematous Rt hand/wrist 1. UGIB manifested through melena and anemia -no melena noted or GI bleeding noted by nursing staff -RESOLVED 2. Anemia, acute on chronic, acute likely due to blood loss in rt hand -No evidence of active GI bleeding, consider etiology of blood loss anemia to be from hematoma in hand -Fe wnl, TIBC low, Ferritin, folate, b12 high, FOB neg -STABLE 3. ESRD on HD -Followed by nephrology 4. Hematoma of Rt hand and wrist -I and D drainage by Dr. Dean 11/17 -IMPROVED 5. Dysphagia -on tube feeds and pureed nectar for oral gratification 6. DM2 7. HTN 8. H/O diastolic dysfunction heart failure 9. S/P EGD 11/18 10. Moderate gastritis with no bleeding noted. 11. Hospital acquired pneumonia -improved 12. Yeast in urine cx -cx 12/20 12. Emesis x 1 -resolved Gastric biopsy results: Stomach, biopsy: -- Antral and oxyntic mucosa showing minimal plasma cell infiltration and small focus of intestinal metaplasia. -- No Helicobacter pylori is identified in Giemsa stain (positive control concurrently reviewed). -- No evidence of dysplasia or malignancy. Plan: Continue with tube feeds at 20cc/hr If pt vomits again, Dr Welch may switch g tube to GJ tube FOB negative Reglan 5 mg prior to meals, low dose to due ESRD. Discussed with the staff nurse and told her to start the patient on Reglan and increase the feedings slowly to 40 cc/h Continue present care Monitor HH closely and for active GI bleeding Consultation Date/Type/Reason Admit Date/Time Nov 16, 2018 at 05:51 Initial Consult Date 11/16/18 Requesting Provider: DYLON WALLS MD Date/Time of Note DATE: 12/24/18 TIME: 11:44 24 HR Interval Summary Free Text/Dictation Discussed with the staff patient was not getting Reglan and she is only on feeding at 20 cc/h Constitutional: disoriented Exam/Review of Systems Exam Vitals Vital Signs Date Temp Pulse Resp B/P (MAP) Pulse Ox O2 O2 Flow FiO2 Time Delivery Rate 12/24/18 97.9 72 18 153/63 96 08:30 (93) 12/24/18 Nasal 2.0 08:00 Cannula Intake and Output 12/23/18 12/23/18 12/24/18 1515:00 23:00 07:00 IntakeIntake Total 50 ml 300 ml BalanceBalance 50 ml 300 ml Constitutional: alert, oriented, well developed Psych: no complaints, nl mood/affect Head: normocephalic, atraumatic Eyes: nl conjunctiva, EOMI, nl lids, nl sclera, PERRL ENMT: nl external ears & nose, nl lips & teeth, nl nasal mucosa & septum Neck: supple, non-tender Respiratory: clear to auscultation, normal air movement Cardiovascular: regular rate and rhythm, nl pulses Gastrointestinal: soft, nl liver, spleen, non-tender Musculoskeletal: nl extremities to inspection, nl gait and stance Extremities: normal pulses 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: DATABASE REPORTING CONSULTANT II-XII intact, nl mental status, nl speech, nl strength Skin: nl turgor; No rash or lesions Lymph: nl lymph nodes Results Result Diagram: 12/24/18 0622 12/24/18 0622 Results 24hrs Laboratory Tests Test 12/24/18 06:22 12/24/18 08:57 White Blood Count 7.0 # Red Blood Count 2.99 L Hemoglobin 7.8 L Hematocrit 25.3 L Mean Corpuscular Volume 84.6 Mean Corpuscular Hemoglobin 26.1 L Mean Corpuscular Hemoglobin Concent 30.8 L Red Cell Distribution Width 17.2 H Platelet Count 195 Mean Platelet Volume 12.2 H Immature Granulocytes % 3.000 H Neutrophils % 55.1 Lymphocytes % 19.2 Monocytes % 14.1 H Eosinophils % 8.2 H Basophils % 0.4 Nucleated Red Blood Cells % 0.9 H Immature Granulocytes # 0.210 H Neutrophils # 3.8 Lymphocytes # 1.3 Monocytes # 1.0 H Eosinophils # 0.6 H Basophils # 0.0 Nucleated Red Blood Cells # 0.1 H Sodium Level 133 L Potassium Level 4.4 Chloride Level 94 L Carbon Dioxide Level 31 Anion Gap 8 Blood Urea Nitrogen 62 H Creatinine 2.67 H Est Glomerular Filtrat Rate mL/min Glucose Level 122 Calcium Level 8.3 L Phosphorus Level 4.7 Magnesium Level 3.0 H Bedside Glucose 114 Medications Medication Current Medications IV Flush (NS 3 ml) 3 ml PER PROTOCOL IV ; Start 11/16/18 at 09:00 Ondansetron HCl (Zofran Inj) 4 mg Q6H PRN IV NAUSEA AND/OR VOMITING Last administered on 12/19/18 05:53; Admin Dose 4 MG; Start 11/16/18 at 09:00 Hydralazine HCl (Apresoline) 10 mg Q4H PRN IV ELEVATED BLOOD PRESSURE Last administered on 12/22/18 19:40; Admin Dose 10 MG; Start 11/17/18 at 10:30 Acetaminophen/ Hydrocodone Bitart ([place] (5/325)) 1 tab Q3H PRN PO MODERATE PAIN LEVEL 4-6 Last administered on 12/06/18 15:38; Admin Dose 1 TAB; Start 11/17/18 at 14:30 Albumin Human 50 ml @ 100 mls/hr WITH DIALYSIS PRN IV SBP<90 Last administered on 12/13/18 11:03; Admin Dose 100 MLS/HR; Start 11/18/18 at 14:30 Morphine Sulfate (morphine) 6 mg Q4H PRN PO SEVERE PAIN LEVEL 7-10 Last administered on 12/13/18 21:31; Admin Dose 6 MG; Start 11/18/18 at 23:00 Docusate Sodium (Colace Liquid Cup) 100 mg DAILY GTB Last administered on 12/24/18 08:55; Admin Dose 100 MG; Start 11/19/18 at 09:30 Multivit/Ca Carb/ B Cmplx/FA/Prenat (Kianna-Roque) 1 tab DAILY GTB Last administered on 12/24/18 08:55; Admin Dose 1 TAB; Start 11/24/18 at 09:00 Lansoprazole (Prevacid) 30 mg DAILY GTB Last administered on 12/24/18 08:55; Admin Dose 30 MG; Start 11/26/18 at 09:00 Acetaminophen (Tylenol Supp) 650 mg Q4H PRN [place] MILD PAIN(1-3) OR TEMP>38C Last administered on 11/26/18 08:32; Admin Dose 650 MG; Start 11/26/18 at 08:30 Epoetin Michael (Epogen (Esrd)) 4,000 units MoWeFr@17 SC Last administered on 12/22/18 19:39; Admin Dose 4,000 UNITS; Start 12/06/18 at 17:00 Hydralazine HCl (Apresoline) 50 mg Q8 PO Last administered on 12/23/18 21:03; Admin Dose 50 MG; Start 12/07/18 at 22:00 Sodium Chloride (NS) -To prime the dialy... DIRECTED FOR HD PRN IV HD; Start 12/07/18 at 17:30 Metoprolol Tartrate (Lopressor) 100 mg BID GTB Last administered on 12/23/18 21:03; Admin Dose 100 MG; Start 12/13/18 at 21:00 Aspirin (Halfprin) 81 mg DAILY PO Last administered on 12/24/18 08:55; Admin Dose 81 MG; Start 12/13/18 at 19:30 Senna (Senokot) 1 tab BID PO Last administered on 12/24/18 08:55; Admin Dose 1 TAB; Start 12/17/18 at 21:00 Acetaminophen (Tylenol Tab) 650 mg Q6H PRN PO PAIN LEVEL 1-3 OR FEVER Last administered on 12/21/18 05:01; Admin Dose 650 MG; Start 12/17/18 at 15:00 Albuterol/ Ipratropium (Duoneb) 3 ml Q6H RESP THERAPY PRN HHN sob Last administered on 12/19/18 03:51; Admin Dose 3 ML; Start 12/17/18 at 09:00 Docusate Sodium (Colace) 100 mg Q12H PRN PO CONSTIPATION Last administered on 12/21/18 05:01; Admin Dose 100 MG; Start 12/17/18 at 21:00 Ferrous Sulfate (Feosol Liquid Cup) 300 mg BID GTB Last administered on 12/24/18 08:55; Admin Dose 300 MG; Start 12/17/18 at 21:00 Guaifenesin/ Dextromethorphan (Robitussin Dm Liquid Cup) 5 ml Q4H PRN PO cough Last administered on 12/23/18 10:44; Admin Dose 5 ML; Start 12/17/18 at 18:00 Linagliptin (Tradjenta) 5 mg DAILY GTB Last administered on 12/24/18 08:58; Admin Dose 5 MG; Start 12/17/18 at 09:00 Folic Acid (Folic Acid) 1 mg DAILY GTB Last administered on 12/24/18at 08:56; Admin Dose 1 MG; Start 12/18/18 at 09:00 Metoclopramide HCl (Reglan) 5 mg Q8 PRN IV VOMITTING; Start 12/20/18 at 10:00 IV Flush (NS 10 ml) 10 ml AFTER DIALYSIS CATHETER ; Start 12/22/18 at 10:00 Voriconazole (Vfend) 200 mg BID PO Last administered on 12/24/18at 08:55; Admin Dose 200 MG; Start 12/22/18 at 11:00 Magnesium Hydroxide (Milk Of Mag) 30 ml DAILY PRN PO CONSTIPATION; Start 12/22/18 at 17:00 Sodium Chloride (NS) -To prime the dialy... DIRECTED FOR HD PRN IV HD; Start 12/23/18 at 16:00 Metoclopramide HCl (Reglan) 5 mg Q6 IV ; Start 12/24/18 at 12:00 CHRISS WELCH MD Dec 24, 2018 11:45
[2018-12-24] MEDS: METOCLOPRAMIDE 10 MG INJ IV SCH ×3 (12:00→23:41)
[2018-12-24] MEDS: EPOETIN 4000 UNITS/1 ML INJ (ESRD) SC SCH (17:12)
--- NOTE | 2018-12-24 18:08 | PN ---
DATE: 12/24/2018 SUBJECTIVE: The patient was seen, appears to be more alert today, able to talk and definitely looks better. PHYSICAL EXAMINATION: VITAL SIGNS: Temperature 97.8, pulse 71, respiration 18, blood pressure 145/65, saturation 95%. GENERAL: The patient is in no acute distress. HEENT: The patient is pale. CARDIOVASCULAR: S1 and S2. Regular rate. LUNGS: Clear. ABDOMEN: Soft. G-tube in place. EXTREMITIES: No clubbing, cyanosis or edema. LABORATORY DATA: White count is 7, hemoglobin 7.8, hematocrit 25, platelet count is 195, neutrophils 55%, lymphs 19%. Chemistry: Sodium 133, potassium 4.4, chloride 94, bicarbonate 31, BUN is 62, cre atinine 2.67, glucose 122. Urine culture Dominique glabrata on 12/20/2018. MEDICATIONS: 1. Milk of Magnesia as directed. 2. Vfend 200 b.i.d. 3. Reglan 5 mg IV q.8 p.r.n. 4. Folic acid 1 mg daily. 5. Senna 1 tab daily. 6. Colace 100 q.12 p.r.n. 7. Ferrous sulfate 300 b.i.d. 8. Robitussin p.r.n. 9. Tylenol p.r.n. 10. DuoNeb p.r.n. 11. Tradjenta 5 mg daily. 12. Lopressor 100 b.i.d. 13. Aspirin 81 daily. 14. Hydralazine 50 mg q.i.d. 15. Epogen every Thursday, Thursday and Thursday. 16. Prevacid 30 mg daily. 17. Tylenol p.r.n. 18. Kianna-Roque 1 tab daily. 19. Morphine sulfate p.r.n. 20. Raphine p.r.n. 21. Hydralazine p.r.n. 22. Zofran p.r.n. ASSESSMENT AND PLAN: This is an 83-year-old [place] female with end-stage renal disease, advanced d ementia, cerebrovascular disease, chronic obstructive pulmonary disease, status post evacuation of ri ght hand hematoma status post recent treatment for line sepsis, bacteremia, fungemia, urinary tract i nfection and overall waxing and waning mental status. 1. Respiratory. Stable. O2 support as needed. Continue aspiration precaution. 2. Cardiovascular. Vitals are stable. 3. Anemia. Continue Epogen and monitor H and H. Transfuse if needed. 4. End-stage renal disease, dialysis 3 times a week, status post dialysis today where 1.7 liters wer e removed. Case was discussed with nursing staff. 5. Diabetes mellitus. Glucose level in the 100. 6. Urinary tract infection. Continue the Vfend. 7. Dysphagia. Continue G-tube feeding. Head elevation. Aspiration precautions. 8. Advanced dementia with poor quality of life. The patient remains full code. Daughter wants ever ything done. Awaiting placement at a longterm facility. manager parking is aware. We will follow. Dictated By: DYLON HULL/MADAN Conf#: [id number] DID#: [id number] CC: CHRISS WELCH MD;*EndCC*
--- NOTE | 2018-12-24 19:07 | CONS ---
Consult Date/Type/Reason Admit Date/Time Nov 16, 2018 at 05:51 Initial Consult Date 11/16/18 Type of Consultation: cv Requesting Provider: DYLON WALLS MD Date/Time of Note DATE: 12/24/18 TIME: 19:06 Subjective Cardiology follow up note Sl DW/ Staff and telemetry was reviewed. Patient is off tele now pt continues to be confused no report of any chest pain or pressure or palpitations but pt is a very poor historian Events noted. 12/13/18: Patient went into atrial fibrillation rapid ventricular response during hemodialysis . Patient has been transferred to telemetry and converted back to sinus rhythm remains in sinus rhythm s/p I/D 11/17 EGD 11.18.18 O: General: Elderly frail female in no acute distress HEENT: NC/AT. Eyes are closed NECK: NO JVD. no stridor. CV: RRR. systolic murmur; no gallop or rubs. PULM: no wheezing or rhonchi. GI: SOFT, NT, ND, no rebound or guarding neuro: sleeping comfortably Psych: confused rectal: deferred CXR 11/22: 1. Left lung interstitial opacities may reflect edema or pneumonia. Findings are new when compared to the prior examination. 2. Mild cardiomegaly and aortic atherosclerosis. 3. Left chest Perma-Cath with tip in the lower SVC. review of old chart shows ECHO done Oct 2018: Normal left ventricular systolic function. Normal left ventricular cavity size. Moderate concentric left ventricular hypertrophy. Ejection fraction is visually estimated at 65 %. Abnormal Diastolic Function. Mitral valve leaflets appear moderately thickened. Moderate mitral annular calcification. Trace mitral regurgitation. Aortic valve not well visualized. No hemodynamically significant aortic stenosis by doppler. Aortic sclerosis without significant stenosis. Aortic cusps appear mildly calcified. Mild to moderate aortic valve regurgitation. Estimated peak PA systolic pressure 40 mmHg. Tricuspid valve appears moderately thickened. There is mild tricuspid regurg Objective Vitals Vital Signs Date Temp Pulse Resp B/P (MAP) Pulse Ox O2 O2 Flow FiO2 Time Delivery Rate 12/24/18 3.0 17:50 12/24/18 97.8 71 18 145/65 95 15:15 (91) 12/24/18 Nasal 14:12 Cannula Intake and Output 12/23/18 12/23/18 12/24/18 1515:00 23:00 07:00 IntakeIntake Total 50 ml 300 ml BalanceBalance 50 ml 300 ml Results/Medications Result Diagram: 12/24/18 0612/24/18 0622 Results 24 hrs Laboratory Tests Test 12/24/18 06:22 12/24/18 08:57 White Blood Count 7.0 # Red Blood Count 2.99 L Hemoglobin 7.8 L Hematocrit 25.3 L Mean Corpuscular Volume 84.6 Mean Corpuscular Hemoglobin 26.1 L Mean Corpuscular Hemoglobin Concent 30.8 L Red Cell Distribution Width 17.2 H Platelet Count 195 Mean Platelet Volume 12.2 H Immature Granulocytes % 3.000 H Neutrophils % 55.1 Lymphocytes % 19.2 Monocytes % 14.1 H Eosinophils % 8.2 H Basophils % 0.4 Nucleated Red Blood Cells % 0.9 H Immature Granulocytes # 0.210 H Neutrophils # 3.8 Lymphocytes # 1.3 Monocytes # 1.0 H Eosinophils # 0.6 H Basophils # 0.0 Nucleated Red Blood Cells # 0.1 H Sodium Level 133 L Potassium Level 4.4 Chloride Level 94 L Carbon Dioxide Level 31 Anion Gap 8 Blood Urea Nitrogen 62 H Creatinine 2.67 H Est Glomerular Filtrat Rate mL/min Glucose Level 122 Calcium Level 8.3 L Phosphorus Level 4.7 Magnesium Level 3.0 H Bedside Glucose 114 Home Meds Reported Medications Sennosides* (Senna Lax*) 8.6 Mg Tablet, 1 TAB PO BID, TAB 11/16/18 Sevelamer Carbonate* (Renvela*) 0.8 Gm Powd.pack, 0.8 GM PO WITH MEALS, PACKET 11/16/18 Lansoprazole* (Lansoprazole*) 30 Mg Capsule.dr, 30 MG PO QAM, CAP 11/16/18 Hydralazine Hcl* (Hydralazine Hcl*) 25 Mg Tab, 25 MG PO Q8, #90 TAB 11/16/18 Ferrous Sulfate* (Ferrous Sulfate*) 325 Mg Tabec, 325 MG PO BID for anemia, TAB 11/16/18 Valproate Sodium (Valproic Acid) 250 Mg/5 Ml Solution, 250 MG PO Q8, ML 11/16/18 Insulin Aspart* (Novolog Insulin Pen*) 100 Unit/Ml Soln, 0 SC .SLIDING SCALE AC, EA IF BS 160-200=2 UNITS,201-250=4 UNITS,251-300=8 UNITS,301-350=12 UNITS;351-400=16 UNITS THEN CALL MD. 10/16/18 Ondansetron Hcl* (Zofran*) 4 Mg Tab, 4 MG GTB Q4H PRN for NAUSEA AND OR VOMITING, TAB 10/16/18 Linagliptin (TRADJENTA) 5 Mg Tablet, 5 MG GTB DAILY, TAB 10/16/18 Quetiapine Fumarate* (Seroquel*) 25 Mg Tablet, 25 MG GTB BID, #60 TAB 10/16/18 [Nephro-Roque] No Conflict Check, 0.8 MG GTB DAILY 10/16/18 Polyethylene Glycol* (Miralax*) 17 Gm Powd.pack, 17 GM GTB Q24H, #30 PACKET 10/16/18 Metoprolol Tartrate* (Lopressor*) 50 Mg Tab, 50 MG GTB DAILY, #60 TAB Q MON,WED,FRI,SUN,HOLD FOR SBP<110 OR VA<60 10/16/18 Metoprolol Tartrate* (Lopressor*) 50 Mg Tab, 50 MG GTB BID, #60 TAB QTUE,ANDREW,SAT,HOLD FOR SBP<110 OR VA<60 10/16/18 Linaclotide (LINZESS) 145 Mcg Capsule, 145 MCG GTB DAILY, #30 CAP 10/16/18 Ipratropium-Albuterol (Ipratropium-Albuterol) 0.5-3 Mg/3 Ml Ampul.neb, 3 ML INHALATION Q6, #30 VIAL FOR 14 DAYS,STOP DATE 10/17/18 10/16/18 Hydralazine Hcl* (Hydralazine Hcl*) 25 Mg Tab, 25 MG GTB DAILY, #60 TAB Q TUE,ANDREW,SAT,HOLD IF SBP<110 OR VA<60 10/16/18 Folic Acid* (Folic Acid*) 1 Mg Tablet, 1 MG GTB DAILY, TAB 10/16/18 Docusate Sodium* (Colace*) 100 Mg Capsule, 100 MG GTB DAILY, #30 CAP 10/16/18 Lorazepam* (Lorazepam*) 1 Mg Tablet, 1 MG GTB HS PRN for ANXIETY, #30 TAB Q TUE,ANDREW,SAT 10/16/18 Amlodipine Besylate* (Norvasc*) 5 Mg Tablet, 5 MG GTB BID, TAB TAKE Q TUE,ANDREW,SAT FOR HTN, HOLD FOR SBP<110 OR VA<60 10/16/18 Acetaminophen* (Acetaminophen*) 650 Mg Tablet, 650 MG GTB Q6H PRN for PAIN LEVEL 1-08/18, #30 TAB 10/16/18 Medications Current Medications IV Flush (NS 3 ml) 3 ml PER PROTOCOL IV ; Start 11/16/18 at 09:00 Ondansetron HCl (Zofran Inj) 4 mg Q6H PRN IV NAUSEA AND/OR VOMITING Last administered on 12/19/18 05:53; Admin Dose 4 MG; Start 11/16/18 at 09:00 Hydralazine HCl (Apresoline) 10 mg Q4H PRN IV ELEVATED BLOOD PRESSURE Last administered on 12/22/18 19:40; Admin Dose 10 MG; Start 11/17/18 at 10:30 Acetaminophen/ Hydrocodone Bitart ([place] (5/325)) 1 tab Q3H PRN PO MODERATE PAIN LEVEL 4-6 Last administered on 12/06/18 15:38; Admin Dose 1 TAB; Start 11/17/18 at 14:30 Albumin Human 50 ml @ 100 mls/hr WITH DIALYSIS PRN IV SBP<90 Last administered on 12/13/18 11:03; Admin Dose 100 MLS/HR; Start 11/18/18 at 14:30 Morphine Sulfate (morphine) 6 mg Q4H PRN PO SEVERE PAIN LEVEL 7-10 Last administered on 12/13/18 21:31; Admin Dose 6 MG; Start 11/18/18 at 23:00 Docusate Sodium (Colace Liquid Cup) 100 mg DAILY GTB Last administered on 12/24/18 08:55; Admin Dose 100 MG; Start 11/19/18 at 09:30 Multivit/Ca Carb/ B Cmplx/FA/Prenat ([place]ianna-Roque) 1 tab DAILY GTB Last administered on 12/24/18 08:55; Admin Dose 1 TAB; Start 11/24/18 at 09:00 Lansoprazole (Prevacid) 30 mg DAILY GTB Last administered on 12/24/18 08:55; Admin Dose 30 MG; Start 11/26/18 at 09:00 Acetaminophen (Tylenol Supp) 650 mg Q4H PRN [place] MILD PAIN(1-3) OR TEMP>38C Last administered on 11/26/18 08:32; Admin Dose 650 MG; Start 11/26/18 at 08:30 Epoetin Michael (Epogen (Esrd)) 4,000 units MoWeFr@17 SC Last administered on 12/24/18 17:12; Admin Dose 4,000 UNITS; Start 12/06/18 at 17:00 Hydralazine HCl (Apresoline) 50 mg Q8 PO Last administered on 12/24/18 15:18; Admin Dose 50 MG; Start 12/07/18 at 22:00 Metoprolol Tartrate (Lopressor) 100 mg BID GTB Last administered on 12/23/18 21:03; Admin Dose 100 MG; Start 12/13/18 at 21:00 Aspirin (Halfprin) 81 mg DAILY PO Last administered on 12/24/18 08:55; Admin Dose 81 MG; Start 12/13/18 at 19:30 Senna (Senokot) 1 tab BID PO Last administered on 12/24/18 08:55; Admin Dose 1 TAB; Start 12/17/18 at 21:00 Acetaminophen (Tylenol Tab) 650 mg Q6H PRN PO PAIN LEVEL 1-3 OR FEVER Last administered on 12/21/18 05:01; Admin Dose 650 MG; Start 12/17/18 at 15:00 Albuterol/ Ipratropium (Duoneb) 3 ml Q6H RESP THERAPY PRN HHN sob Last administered on 12/19/18 03:51; Admin Dose 3 ML; Start 12/17/18 at 09:00 Docusate Sodium (Colace) 100 mg Q12H PRN PO CONSTIPATION Last administered on 12/21/18 05:01; Admin Dose 100 MG; Start 12/17/18 at 21:00 Ferrous Sulfate (Feosol Liquid Cup) 300 mg BID GTB Last administered on 12/24/18 08:55; Admin Dose 300 MG; Start 12/17/18 at 21:00 Guaifenesin/ Dextromethorphan (Robitussin Dm Liquid Cup) 5 ml Q4H PRN PO cough Last administered on 12/23/18 10:44; Admin Dose 5 ML; Start 12/17/18 at 18:00 Linagliptin (Tradjenta) 5 mg DAILY GTB Last administered on 12/24/18at 08:58; Admin Dose 5 MG; Start 12/17/18 at 09:00 Folic Acid (Folic Acid) 1 mg DAILY GTB Last administered on 12/24/18at 08:56; Admin Dose 1 MG; Start 12/18/18 at 09:00 Metoclopramide HCl (Reglan) 5 mg Q8 PRN IV VOMITTING; Start 12/20/18 at 10:00 IV Flush (NS 10 ml) 10 ml AFTER DIALYSIS CATHETER ; Start 12/22/18 at 10:00 Voriconazole (Vfend) 200 mg BID PO Last administered on 12/24/18at 08:55; Admin Dose 200 MG; Start 12/22/18 at 11:00 Magnesium Hydroxide (Milk Of Mag) 30 ml DAILY PRN PO CONSTIPATION; Start 12/22/18 at 17:00 Sodium Chloride (NS) -To prime the dialy... DIRECTED FOR HD PRN IV HD; Start 12/23/18 at 16:00 Metoclopramide HCl (Reglan) 5 mg Q6 IV Last administered on 12/24/18at 17:11; Admin Dose 5 MG; Start 12/24/18 at 12:00 Assessment/Plan Hospital Course (Demo Recall) P-atrial fibrillation rapid ventricular response: Currently back in sinus rhythm fungemia /fungal urinary tract infection Status post right hand hematoma: Status post I&D Renal failure on dialysis Hypertension Dementia Anemia Possible GI bleed: Status post EGD AI Recommendations: transfusion with HD prn not on full anticoagulation due to the fall risk as well as anemia cont beta-farrah Dialysis as per renal team Neuro workup and treatment as per internal medicine Antibiotic as per ID and internal medicine asa for now and monitor Thank you for his referral. We will continue to follow along with you as needed basis CHRISTEN ESCOBEDO MD [facility] CHRISTEN ESCOBEDO MD Dec 24, 2018 19:07
[2018-12-24] MEDS: GUAIFENESIN/DM 5ML CUP PO PRN (21:16)
[2018-12-25] VITALS (7 sets, daily range): BP systolic 161–182; BP diastolic 71–80; PULSE 69–80; RESP 16–18
[2018-12-25] MEDS: METOCLOPRAMIDE 10 MG INJ IV SCH ×3 (06:11→17:26)
[2018-12-25] MEDS: DOCUSATE SODIUM 10 MG/ML (10ML CUP) GTB SCH (09:00)
[2018-12-25] MEDS: SENNA TAB PO SCH ×2 (09:00→21:17)
[2018-12-25] MEDS: FERROUS SULFATE 60 MG/ML 5ML CUP GTB SCH ×2 (09:42→21:17)
[2018-12-25] MEDS: FOLIC ACID 1 MG TAB GTB SCH (09:43)
[2018-12-25] MEDS: METOPROLOL 50 MG TAB GTB SCH ×2 (09:43→21:18)
[2018-12-25] MEDS: ASPIRIN (EC) 81 MG TAB PO SCH (09:44)
[2018-12-25] MEDS: VORICONAZOLE 200 MG TAB PO SCH ×2 (09:44→21:17)
[2018-12-25] MEDS: LANSOPRAZOLE 30 MG CAP GTB SCH (09:44)
[2018-12-25] MEDS: MULTIVIT/CA CARB/B CMPLX/FA TAB GTB SCH (09:44)
[2018-12-25] MEDS: LINAGLIPTIN 5 MG TABLET GTB SCH (09:46)
--- NOTE | 2018-12-25 11:19 | CONS ---
Assessment/Plan Assessment/Plan Hospital Course (Demo Recall) 1. End-stage renal disease on hemodialysis. 2. Gastrointestinal bleed with melena, resolved. 3. Hypertension, controlled. 4. Diabetes mellitus type II controlled. 5. Right hand swelling, s/p I and D on 11/17/18 6. History of falls. 7. Vascular dementia. 8. History of sepsis with VRE. 9. Dysphagia, status post G-tube. 10. History of hip fracture. 11. Thrombocytopenia. 12. Atherosclerotic heart disease. 13. Pneumonia left side, resolved 14. Anemia 15. Fungemia. 16. UTI Assessment/Plan (Daily) - Hd MWF, - cw with permacath -avoid nephrotoxic drugs -HD MWFr -c/w epogen - Aspiration precautions Consultation Date/Type/Reason Admit Date/Time Nov 16, 2018 at 05:51 Initial Consult Date 11/16/18 Type of Consult nephrology Requesting Provider: DYLON WALLS MD Date/Time of Note DATE: 12/25/18 TIME: 11:17 24 HR Interval Summary Constitutional: disoriented Exam/Review of Systems Exam Vitals Vital Signs Date Temp Pulse Resp B/P (MAP) Pulse Ox O2 O2 Flow FiO2 Time Delivery Rate 12/25/18 73 168/71 08:20 (103) 12/25/18 98.9 16 95 07:20 12/25/18 3.0 03:01 12/24/18 Nasal 23:51 Cannula Intake and Output 12/24/18 12/24/18 12/25/18 1515:00 23:00 07:00 IntakeIntake Total 350 ml OutputOutput Total 2100 ml 1700 ml BalanceBalance -2100 ml -1700 ml 350 ml Exam Chest Permcath Psych: no complaints Eyes: nl conjunctiva Neck: supple Respiratory: clear to auscultation Cardiovascular: regular rate and rhythm Gastrointestinal: soft, other (GT) 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: confused Results Result Diagram: 12/24/1862112/24/18621 Results 24hrs Laboratory Tests Test 12/25/18 09:45 Bedside Glucose 186 Medications Medication Current Medications IV Flush (NS 3 ml) 3 ml PER PROTOCOL IV ; Start 11/16/18 at 09:00 Ondansetron HCl (Zofran Inj) 4 mg Q6H PRN IV NAUSEA AND/OR VOMITING Last admin istered on 12/19/18 05:53; Admin Dose 4 MG; Start 11/16/18 at 09:00 Hydralazine HCl (Apresoline) 10 mg Q4H PRN IV ELEVATED BLOOD PRESSURE Last administered on 12/22/18 19:40; Admin Dose 10 MG; Start 11/17/18 at 10:30 Acetaminophen/ Hydrocodone Bitart ([place] (5/325)) 1 tab Q3H PRN PO MODERATE PAIN LEVEL 4-6 Last administered on 12/06/18 15:38; Admin Dose 1 TAB; Start 11/17/18 at 14:30 Albumin Human 50 ml @ 100 mls/hr WITH DIALYSIS PRN IV SBP<90 Last administered on 12/13/18 11:03; Admin Dose 100 MLS/HR; Start 11/18/18 at 14:30 Morphine Sulfate (morphine) 6 mg Q4H PRN PO SEVERE PAIN LEVEL 7-10 Last administered on 12/13/18 21:31; Admin Dose 6 MG; Start 11/18/18 at 23:00 Docusate Sodium (Colace Liquid Cup) 100 mg DAILY GTB Last administered on 12/24/18 08:55; Admin Dose 100 MG; Start 11/19/18 at 09:30 Multivit/Ca Carb/ B Cmplx/FA/Prenat (Kianna-Roque) 1 tab DAILY GTB Last administered on 12/25/18 09:44; Admin Dose 1 TAB; Start 11/24/18 at 09:00 Lansoprazole (Prevacid) 30 mg DAILY GTB Last administered on 12/25/18 09:44; Admin Dose 30 MG; Start 11/26/18 at 09:00 Acetaminophen (Tylenol Supp) 650 mg Q4H PRN [place] MILD PAIN(1-3) OR TEMP>38C Last administered on 11/26/18 08:32; Admin Dose 650 MG; Start 11/26/18 at 08:30 Epoetin Michael (Epogen (Esrd)) 4,000 units MoWeFr@17 SC Last administered on 12/24/18 17:12; Admin Dose 4,000 UNITS; Start 12/06/18 at 17:00 Hydralazine HCl (Apresoline) 50 mg Q8 PO Last administered on 12/25/18 06:13; Admin Dose 50 MG; Start 12/07/18 at 22:00 Metoprolol Tartrate (Lopressor) 100 mg BID GTB Last administered on 12/25/18 09:43; Admin Dose 100 MG; Start 12/13/18 at 21:00 Aspirin (Halfprin) 81 mg DAILY PO Last administered on 12/25/18 09:44; Admin Dose 81 MG; Start 12/13/18 at 19:30 Senna (Senokot) 1 tab BID PO Last administered on 12/24/18 21:16; Admin Dose 1 TAB; Start 12/17/18 at 21:00 Acetaminophen (Tylenol Tab) 650 mg Q6H PRN PO PAIN LEVEL 1-3 OR FEVER Last administered on 12/21/18 05:01; Admin Dose 650 MG; Start 12/17/18 at 15:00 Albuterol/ Ipratropium (Duoneb) 3 ml Q6H RESP THERAPY PRN HHN sob Last administered on 12/19/18 03:51; Admin Dose 3 ML; Start 12/17/18 at 09:00 Docusate Sodium (Colace) 100 mg Q12H PRN PO CONSTIPATION Last administered on 12/21/18 05:01; Admin Dose 100 MG; Start 12/17/18 at 21:00 Ferrous Sulfate (Feosol Liquid Cup) 300 mg BID GTB Last administered on 12/25/18 09:42; Admin Dose 300 MG; Start 12/17/18 at 21:00 Guaifenesin/ Dextromethorphan (Robitussin Dm Liquid Cup) 5 ml Q4H PRN PO cough Last administered on 12/24/18 21:16; Admin Dose 5 ML; Start 12/17/18 at 18:00 Linagliptin (Tradjenta) 5 mg DAILY GTB Last administered on 12/25/18 09:46; Admin Dose 5 MG; Start 12/17/18 at 09:00 Folic Acid (Folic Acid) 1 mg DAILY GTB Last administered on 12/25/18 09:43; Admin Dose 1 MG; Start 12/18/18 at 09:00 Metoclopramide HCl (Reglan) 5 mg Q8 PRN IV VOMITTING; Start 12/20/18 at 10:00 IV Flush (NS 10 ml) 10 ml AFTER DIALYSIS CATHETER ; Start 12/22/18 at 10:00 Voriconazole (Vfend) 200 mg BID PO Last administered on 12/25/18at 09:44; Admin Dose 200 MG; Start 12/22/18 at 11:00 Magnesium Hydroxide (Milk Of Mag) 30 ml DAILY PRN PO CONSTIPATION; Start 12/22/18 at 17:00 Sodium Chloride (NS) -To prime the dialy... DIRECTED FOR HD PRN IV HD; Start 12/23/18 at 16:00 Metoclopramide HCl (Reglan) 5 mg Q6 IV Last administered on 12/25/18at 06:11; Admin Dose 5 MG; Start 12/24/18 at 12:00 FLAVIO CLAYTON Dec 25, 2018 11:19
--- NOTE | 2018-12-25 14:34 | CONS ---
Assessment/Plan Assessment/Plan Assessment/Plan (Daily) Assessment/Plan Hospital Course (Demo Recall) 83 yo female in ESRD on HD presents for melena and anemia and also found to have edematous Rt hand/wrist 1. UGIB manifested through melena and anemia -no melena noted or GI bleeding noted by nursing staff -RESOLVED 2. Anemia, acute on chronic, acute likely due to blood loss in rt hand -No evidence of active GI bleeding, consider etiology of blood loss anemia to be from hematoma in hand -Fe wnl, TIBC low, Ferritin, folate, b12 high, FOB neg -STABLE 3. ESRD on HD -Followed by nephrology 4. Hematoma of Rt hand and wrist -I and D drainage by Dr. Dean 11/17 -IMPROVED 5. Dysphagia -on tube feeds and pureed nectar for oral gratification 6. DM2 7. HTN 8. H/O diastolic dysfunction heart failure 9. S/P EGD 11/18 10. Moderate gastritis with no bleeding noted. 11. Hospital acquired pneumonia -improved 12. Yeast in urine cx -cx 12/20 12. Emesis x 1 -resolved Gastric biopsy results: Stomach, biopsy: -- Antral and oxyntic mucosa showing minimal plasma cell infiltration and small focus of intestinal metaplasia. -- No Helicobacter pylori is identified in Giemsa stain (positive control concurrently reviewed). -- No evidence of dysplasia or malignancy. Plan: Continue with tube feeds at 20cc/hr If pt vomits again, Dr Welch may switch g tube to GJ tube FOB negative Reglan 5 mg prior to meals, low dose to due ESRD. Discussed with the staff nurse and told her to start the patient on Reglan and increase the feedings slowly to 40 cc/h Continue present care Monitor HH closely and for active GI bleeding The patient is tolerating feeding now she is on a continuous feeding rather than bolus feeding Consultation Date/Type/Reason Admit Date/Time Nov 16, 2018 at 05:51 Initial Consult Date 11/16/18 Requesting Provider: DYLON WALLS MD Date/Time of Note DATE: 12/25/18 TIME: 14:33 24 HR Interval Summary Constitutional: no complaints, improved Exam/Review of Systems Exam Vitals Vital Signs Date Temp Pulse Resp B/P (MAP) Pulse Ox O2 O2 Flow FiO2 Time Delivery Rate 12/25/18 98.0 74 16 161/80 96 13:59 (107) 12/25/18 3.0 13:08 12/24/18 Nasal 23:51 Cannula Intake and Output 12/24/18 12/24/18 12/25/18 1515:00 23:00 07:00 IntakeIntake Total 350 ml OutputOutput Total 2100 ml 1700 ml BalanceBalance -2100 ml -1700 ml 350 ml Constitutional: alert, oriented, well developed Psych: no complaints, nl mood/affect Head: normocephalic, atraumatic Eyes: nl conjunctiva, EOMI, nl lids, nl sclera, PERRL ENMT: nl external ears & nose, nl lips & teeth, nl nasal mucosa & septum Neck: supple, non-tender Respiratory: clear to auscultation, normal air movement Cardiovascular: regular rate and rhythm, nl pulses Gastrointestinal: soft, nl liver, spleen, non-tender Musculoskeletal: nl extremities to inspection, nl gait and stance Extremities: normal pulses 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: [employer] II-XII intact, nl mental status, nl speech, nl strength Skin: nl turgor; No rash or lesions Lymph: nl lymph nodes Results Result Diagram: 12/24/1862112/24/18621 Results 24hrs Laboratory Tests Test 12/25/18 09:45 Bedside Glucose 186 Medications Medication Current Medications IV Flush (NS 3 ml) 3 ml PER PROTOCOL IV ; Start 11/16/18 at 09:00 Ondansetron HCl (Zofran Inj) 4 mg Q6H PRN IV NAUSEA AND/OR VOMITING Last administered on 12/19/18at 05:53; Admin Dose 4 MG; Start 11/16/18 at 09:00 Hydralazine HCl (Apresoline) 10 mg Q4H PRN IV ELEVATED BLOOD PRESSURE Last administered on 12/22/18at 19:40; Admin Dose 10 MG; Start 11/17/18 at 10:30 Acetaminophen/ Hydrocodone Bitart ([place] (5/325)) 1 tab Q3H PRN PO MODERATE PAIN LEVEL 4-6 Last administered on 12/06/18at 15:38; Admin Dose 1 TAB; Start 11/17/18 at 14:30 Albumin Human 50 ml @ 100 mls/hr WITH DIALYSIS PRN IV SBP<90 Last administered on 12/13/18at 11:03; Admin Dose 100 MLS/HR; Start 11/18/18 at 14:30 Morphine Sulfate (morphine) 6 mg Q4H PRN PO SEVERE PAIN LEVEL 7-10 Last administered on 12/13/18 21:31; Admin Dose 6 MG; Start 11/18/18 at 23:00 Docusate Sodium (Colace Liquid Cup) 100 mg DAILY GTB Last administered on 12/24/18 08:55; Admin Dose 100 MG; Start 11/19/18 at 09:30 Multivit/Ca Carb/ B Cmplx/FA/Prenat (Kianna-Roque) 1 tab DAILY GTB Last administered on 12/25/18 09:44; Admin Dose 1 TAB; Start 11/24/18 at 09:00 Lansoprazole (Prevacid) 30 mg DAILY GTB Last administered on 12/25/18 09:44; Admin Dose 30 MG; Start 11/26/18 at 09:00 Acetaminophen (Tylenol Supp) 650 mg Q4H PRN [place] MILD PAIN(1-3) OR TEMP>38C Last administered on 11/26/18 08:32; Admin Dose 650 MG; Start 11/26/18 at 08:30 Epoetin Michael (Epogen (Esrd)) 4,000 units MoWeFr@17 SC Last administered on 12/24/18 17:12; Admin Dose 4,000 UNITS; Start 12/06/18 at 17:00 Hydralazine HCl (Apresoline) 50 mg Q8 PO Last administered on 12/25/18 13:03; Admin Dose 50 MG; Start 12/07/18 at 22:00 Metoprolol Tartrate (Lopressor) 100 mg BID GTB Last administered on 12/25/18 09:43; Admin Dose 100 MG; Start 12/13/18 at 21:00 Aspirin (Halfprin) 81 mg DAILY PO Last administered on 12/25/18 09:44; Admin Dose 81 MG; Start 12/13/18 at 19:30 Senna (Senokot) 1 tab BID PO Last administered on 12/24/18 21:16; Admin Dose 1 TAB; Start 12/17/18 at 21:00 Acetaminophen (Tylenol Tab) 650 mg Q6H PRN PO PAIN LEVEL 1-3 OR FEVER Last administered on 12/21/18 05:01; Admin Dose 650 MG; Start 12/17/18 at 15:00 Albuterol/ Ipratropium (Duoneb) 3 ml Q6H RESP THERAPY PRN HHN sob Last administered on 12/19/18 03:51; Admin Dose 3 ML; Start 12/17/18 at 09:00 Docusate Sodium (Colace) 100 mg Q12H PRN PO CONSTIPATION Last administered on 12/21/18 05:01; Admin Dose 100 MG; Start 12/17/18 at 21:00 Ferrous Sulfate (Feosol Liquid Cup) 300 mg BID GTB Last administered on 12/25/18 09:42; Admin Dose 300 MG; Start 12/17/18 at 21:00 Guaifenesin/ Dextromethorphan (Robitussin Dm Liquid Cup) 5 ml Q4H PRN PO cough Last administered on 12/24/18 21:16; Admin Dose 5 ML; Start 12/17/18 at 18:00 Linagliptin (Tradjenta) 5 mg DAILY GTB Last administered on 12/25/18 09:46; Admin Dose 5 MG; Start 12/17/18 at 09:00 Folic Acid (Folic Acid) 1 mg DAILY GTB Last administered on 12/25/18 09:43; Admin Dose 1 MG; Start 12/18/18 at 09:00 Metoclopramide HCl (Reglan) 5 mg Q8 PRN IV VOMITTING; Start 12/20/18 at 10:00 IV Flush (NS 10 ml) 10 ml AFTER DIALYSIS CATHETER ; Start 12/22/18 at 10:00 Voriconazole (Vfend) 200 mg BID PO Last administered on 12/25/18 09:44; Admin Dose 200 MG; Start 12/22/18 at 11:00 Magnesium Hydroxide (Milk Of Mag) 30 ml DAILY PRN PO CONSTIPATION; Start 12/22/18 at 17:00 Sodium Chloride (NS) -To prime the dialy... DIRECTED FOR HD PRN IV HD; Start 12/23/18 at 16:00 Metoclopramide HCl (Reglan) 5 mg Q6 IV Last administered on 12/25/18 12:06; Admin Dose 5 MG; Start 12/24/18 at 12:00 CHRISS WELCH MD Dec 25, 2018 14:33
--- NOTE | 2018-12-25 15:02 | CONS ---
Assessment/Plan Assessment/Plan Hospital Course (Demo Recall) ID PROGRESS NOTE CURRENT ABX: DAY #=> VFEND s/p Merrem # + Cancidas 24H INTERVAL SUMMARY * Frail elderly F awake, alert, responsive -- smiling -- sitting up on edge of bed with sitter present, VSS, NAD * Indwelling: Left chest PermCath, PEG MICRO * * 12/20/18 URINE Cx (+) Glabrata URINE CULTURE Final Organism 1 TYREE GLABRATA COLONY COUNT 30,000 - 40,000 CFU/ml * 12/20/18 BCx (-) * 12/18/18 BCx (-) * 12/06/18 URINE Cx (+) Glabrata * 12/03/18 BCx (-) * 12/01/18 BCx (-) * 11/29/18 BCx (+) Glabrata * 11/24/18 BCX (+) Glabrata = fungemia PHYSICAL EXAMINATION: GENERAL: Afebrile, VSS, HEENT: AT, NC, anicteric NECK: Supple, trach CHEST: Equal chest rise bilaterally, without dyspnea on observation HEART: Pulse RRR ABDOMEN: Soft / NT EXTREMITIES: Warm, dry - Right hand w/edema and ecchymosis; no open skin seen - SKIN: No rash, no diaphoresis ID ASSESSMENT 83 yo F w/ DEMENTIA admit with: 1. FUNGEMIA == secondary to GLABRATA UTI 2. Status post VRE bacteremia, status post new Pcath 3. End-stage renal disease, hemodialysis dependent 4. Health care Acquired PNA -- ?ASP PNA? 5. Right hand hematoma, status post I&D 11/17/18 6. Diabetes 7. Anemia 8. Failure to thrive (-)MRSA Nares ABX ALLERGIES: KNDA INVASIVES: PIV, Left chest PermCath CURRENT ABX: DAY #=> VFEND s/p Merrem # + Cancidas ID RECOMMENDATIONS/PLAN: Continue on Vfend==>March DC on VFEND as above when cleared by primary . Consultation Date/Type/Reason Admit Date/Time Nov 16, 2018 at 05:51 Initial Consult Date 11/16/18 Requesting Provider: DYLON WALLS MD Date/Time of Note DATE: 12/25/18 TIME: 15:01 Exam/Review of Systems Exam Vitals Vital Signs Date Temp Pulse Resp B/P (MAP) Pulse Ox O2 O2 Flow FiO2 Time Delivery Rate 12/25/18 98.0 74 16 161/80 96 13:59 (107) 12/25/18 3.0 13:08 12/24/18 Nasal 23:51 Cannula Intake and Output 12/24/18 12/24/18 12/25/18 1515:00 23:00 07:00 IntakeIntake Total 350 ml OutputOutput Total 2100 ml 1700 ml BalanceBalance -2100 ml -1700 ml 350 ml Results Result Diagram: 12/24/1862112/24/18 0622 Results 24hrs Laboratory Tests Test 12/25/18 09:45 Bedside Glucose 186 Medications Medication Current Medications IV Flush (NS 3 ml) 3 ml PER PROTOCOL IV ; Start 11/16/18 at 09:00 Ondansetron HCl (Zofran Inj) 4 mg Q6H PRN IV NAUSEA AND/OR VOMITING Last administered on 12/19/18 05:53; Admin Dose 4 MG; Start 11/16/18 at 09:00 Hydralazine HCl (Apresoline) 10 mg Q4H PRN IV ELEVATED BLOOD PRESSURE Last administered on 12/22/18 19:40; Admin Dose 10 MG; Start 11/17/18 at 10:30 Acetaminophen/ Hydrocodone Bitart ([place] (5/325)) 1 tab Q3H PRN PO MODERATE PAIN LEVEL 4-6 Last administered on 12/06/18 15:38; Admin Dose 1 TAB; Start 11/17/18 at 14:30 Albumin Human 50 ml @ 100 mls/hr WITH DIALYSIS PRN IV SBP<90 Last administered on 12/13/18 11:03; Admin Dose 100 MLS/HR; Start 11/18/18 at 14:30 Morphine Sulfate (morphine) 6 mg Q4H PRN PO SEVERE PAIN LEVEL 7-10 Last administered on 12/13/18 21:31; Admin Dose 6 MG; Start 11/18/18 at 23:00 Docusate Sodium (Colace Liquid Cup) 100 mg DAILY GTB Last administered on 12/24/18 08:55; Admin Dose 100 MG; Start 11/19/18 at 09:30 Multivit/Ca Carb/ B Cmplx/FA/Prenat (Kianna-Roque) 1 tab DAILY GTB Last administered on 12/25/18 09:44; Admin Dose 1 TAB; Start 11/24/18 at 09:00 Lansoprazole (Prevacid) 30 mg DAILY GTB Last administered on 12/25/18 09:44; Admin Dose 30 MG; Start 11/26/18 at 09:00 Acetaminophen (Tylenol Supp) 650 mg Q4H PRN [place] MILD PAIN(1-3) OR TEMP>38C Last administered on 11/26/18 08:32; Admin Dose 650 MG; Start 11/26/18 at 08:30 Epoetin Michael (Epogen (Esrd)) 4,000 units MoWeFr@17 SC Last administered on 12/24/18 17:12; Admin Dose 4,000 UNITS; Start 12/06/18 at 17:00 Hydralazine HCl (Apresoline) 50 mg Q8 PO Last administered on 12/25/18 13:03; Admin Dose 50 MG; Start 12/07/18 at 22:00 Metoprolol Tartrate (Lopressor) 100 mg BID GTB Last administered on 12/25/18 09:43; Admin Dose 100 MG; Start 12/13/18 at 21:00 Aspirin (Halfprin) 81 mg DAILY PO Last administered on 12/25/18 09:44; Admin Dose 81 MG; Start 12/13/18 at 19:30 Senna (Senokot) 1 tab BID PO Last administered on 12/24/18 21:16; Admin Dose 1 TAB; Start 12/17/18 at 21:00 Acetaminophen (Tylenol Tab) 650 mg Q6H PRN PO PAIN LEVEL 1-3 OR FEVER Last administered on 12/21/18 05:01; Admin Dose 650 MG; Start 12/17/18 at 15:00 Albuterol/ Ipratropium (Duoneb) 3 ml Q6H RESP THERAPY PRN HHN sob Last administered on 12/19/18 03:51; Admin Dose 3 ML; Start 12/17/18 at 09:00 Docusate Sodium (Colace) 100 mg Q12H PRN PO CONSTIPATION Last administered on 12/21/18 05:01; Admin Dose 100 MG; Start 12/17/18 at 21:00 Ferrous Sulfate (Feosol Liquid Cup) 300 mg BID GTB Last administered on 12/25/18 09:42; Admin Dose 300 MG; Start 12/17/18 at 21:00 Guaifenesin/ Dextromethorphan (Robitussin Dm Liquid Cup) 5 ml Q4H PRN PO cough Last administered on 12/24/18at 21:16; Admin Dose 5 ML; Start 12/17/18 at 18:00 Linagliptin (Tradjenta) 5 mg DAILY GTB Last administered on 12/25/18 09:46; Admin Dose 5 MG; Start 12/17/18 at 09:00 Folic Acid (Folic Acid) 1 mg DAILY GTB Last administered on 12/25/18at 09:43; Admin Dose 1 MG; Start 12/18/18 at 09:00 Metoclopramide HCl (Reglan) 5 mg Q8 PRN IV VOMITTING; Start 12/20/18 at 10:00 IV Flush (NS 10 ml) 10 ml AFTER DIALYSIS CATHETER ; Start 12/22/18 at 10:00 Voriconazole (Vfend) 200 mg BID PO Last administered on 12/25/18at 09:44; Admin Dose 200 MG; Start 12/22/18 at 11:00 Magnesium Hydroxide (Milk Of Mag) 30 ml DAILY PRN PO CONSTIPATION; Start 12/22/18 at 17:00 Sodium Chloride (NS) -To prime the dialy... DIRECTED FOR HD PRN IV HD; Start 12/23/18 at 16:00 Metoclopramide HCl (Reglan) 5 mg Q6 IV Last administered on 12/25/18at 12:06; Admin Dose 5 MG; Start 12/24/18 at 12:00 SEVERO GARCIA NP Dec 25, 2018 15:02
[2018-12-25] MEDS: AMLODIPINE 5 MG TAB GTB SCH (15:50)
--- NOTE | 2018-12-25 18:02 | CONS ---
Consult Date/Type/Reason Admit Date/Time Nov 16, 2018 at 05:51 Initial Consult Date 11/16/18 Type of Consultation: cv Requesting Provider: DYLON WALLS MD Date/Time of Note DATE: 12/25/18 TIME: 18:01 Subjective Cardiology follow up note Sl DW/ Staff and telemetry was reviewed. Patient is off tele now pt continues to be confused but calm at the moment no report of any chest pain or pressure or palpitations but pt is a very poor historian Events noted. 12/13/18: Patient went into atrial fibrillation rapid ventricular response during hemodialysis . Patient has been transferred to telemetry and converted back to sinus rhythm remains in sinus rhythm s/p I/D 11/17 EGD 11.18.18 O: General: Elderly frail female in no acute distress HEENT: NC/AT. Eyes are closed NECK: NO JVD. no stridor. CV: RRR. systolic murmur; no gallop or rubs. PULM: no wheezing or rhonchi. GI: SOFT, NT, ND, no rebound or guarding neuro: awake Psych: calm now rectal: deferred CXR 11/22: 1. Left lung interstitial opacities may reflect edema or pneumonia. Findings are new when compared to the prior examination. 2. Mild cardiomegaly and aortic atherosclerosis. 3. Left chest Perma-Cath with tip in the lower SVC. review of old chart shows ECHO done Oct 2018: Normal left ventricular systolic function. Normal left ventricular cavity size. Moderate concentric left ventricular hypertrophy. Ejection fraction is visually estimated at 65 %. Abnormal Diastolic Function. Mitral valve leaflets appear moderately thickened. Moderate mitral annular calcification. Trace mitral regurgitation. Aortic valve not well visualized. No hemodynamically significant aortic stenosis by doppler. Aortic sclerosis without significant stenosis. Aortic cusps appear mildly calcified. Mild to moderate aortic valve regurgitation. Estimated peak PA systolic pressure 40 mmHg. Tricuspid valve appears moderately thickened. There is mild tricuspid regurg Objective Vitals Vital Signs Date Temp Pulse Resp B/P (MAP) Pulse Ox O2 O2 Flow FiO2 Time Delivery Rate 12/25/18 98.3 73 16 169/76 96 16:21 (107) 12/25/18 3.0 13:08 12/24/18 Nasal 23:51 Cannula Intake and Output 12/24/18 12/24/18 12/25/18 1515:00 23:00 07:00 IntakeIntake Total 350 ml OutputOutput Total 2100 ml 1700 ml BalanceBalance -2100 ml -1700 ml 350 ml Results/Medications Result Diagram: 12/24/1862112/24/18621 Results 24 hrs Laboratory Tests Test 12/25/18 09:45 Bedside Glucose 186 Home Meds Reported Medications Sennosides* (Senna Lax*) 8.6 Mg Tablet, 1 TAB PO BID, TAB 11/16/18 Sevelamer Carbonate* (Renvela*) 0.8 Gm Powd.pack, 0.8 GM PO WITH MEALS, PACKET 11/16/18 Lansoprazole* (Lansoprazole*) 30 Mg Capsule.dr, 30 MG PO QAM, CAP 11/16/18 Hydralazine Hcl* (Hydralazine Hcl*) 25 Mg Tab, 25 MG PO Q8, #90 TAB 11/16/18 Ferrous Sulfate* (Ferrous Sulfate*) 325 Mg Tabec, 325 MG PO BID for anemia, TAB 11/16/18 Valproate Sodium (Valproic Acid) 250 Mg/5 Ml Solution, 250 MG PO Q8, ML 11/16/18 Insulin Aspart* (Novolog Insulin Pen*) 100 Unit/Ml Soln, 0 SC .SLIDING SCALE AC, EA IF BS 160-200=2 UNITS,201-250=4 UNITS,251-300=8 UNITS,301-350=12 UNITS;351-400=16 UNITS THEN CALL MD. 10/16/18 Ondansetron Hcl* (Zofran*) 4 Mg Tab, 4 MG GTB Q4H PRN for NAUSEA AND OR VOMITING, TAB 10/16/18 Linagliptin (TRADJENTA) 5 Mg Tablet, 5 MG GTB DAILY, TAB 10/16/18 Quetiapine Fumarate* (Seroquel*) 25 Mg Tablet, 25 MG GTB BID, #60 TAB 10/16/18 [Nephro-Roque] No Conflict Check, 0.8 MG GTB DAILY 10/16/18 Polyethylene Glycol* (Miralax*) 17 Gm Powd.pack, 17 GM GTB Q24H, #30 PACKET 10/16/18 Metoprolol Tartrate* (Lopressor*) 50 Mg Tab, 50 MG GTB DAILY, #60 TAB Q MON,WED,FRI,SUN,HOLD FOR SBP<110 OR AK<60 10/16/18 Metoprolol Tartrate* (Lopressor*) 50 Mg Tab, 50 MG GTB BID, #60 TAB QTUE,ANDREW,SAT,HOLD FOR SBP<110 OR AK<60 10/16/18 Linaclotide (LINZESS) 145 Mcg Capsule, 145 MCG GTB DAILY, #30 CAP 10/16/18 Ipratropium-Albuterol (Ipratropium-Albuterol) 0.5-3 Mg/3 Ml Ampul.neb, 3 ML INHALATION Q6, #30 VIAL FOR 14 DAYS,STOP DATE 10/17/18 10/16/18 Hydralazine Hcl* (Hydralazine Hcl*) 25 Mg Tab, 25 MG GTB DAILY, #60 TAB Q TUE,ANDREW,SAT,HOLD IF SBP<110 OR AK<60 10/16/18 Folic Acid* (Folic Acid*) 1 Mg Tablet, 1 MG GTB DAILY, TAB 10/16/18 Docusate Sodium* (Colace*) 100 Mg Capsule, 100 MG GTB DAILY, #30 CAP 10/16/18 Lorazepam* (Lorazepam*) 1 Mg Tablet, 1 MG GTB HS PRN for ANXIETY, #30 TAB Q TUE,ANDREW,SAT 10/16/18 Amlodipine Besylate* (Norvasc*) 5 Mg Tablet, 5 MG GTB BID, TAB TAKE Q TUE,ANDREW,SAT FOR HTN, HOLD FOR SBP<110 OR AK<60 10/16/18 Acetaminophen* (Acetaminophen*) 650 Mg Tablet, 650 MG GTB Q6H PRN for PAIN LEVEL 1-08/18, #30 TAB 10/16/18 Medications Current Medications IV Flush (NS 3 ml) 3 ml PER PROTOCOL IV ; Start 11/16/18 at 09:00 Ondansetron HCl (Zofran Inj) 4 mg Q6H PRN IV NAUSEA AND/OR VOMITING Last administered on 12/19/18at 05:53; Admin Dose 4 MG; Start 11/16/18 at 09:00 Hydralazine HCl (Apresoline) 10 mg Q4H PRN IV ELEVATED BLOOD PRESSURE Last administered on 12/22/18at 19:40; Admin Dose 10 MG; Start 11/17/18 at 10:30 Acetaminophen/ Hydrocodone Bitart ([place] (5/325)) 1 tab Q3H PRN PO MODERATE PAIN LEVEL 4-6 Last administered on 12/06/18 15:38; Admin Dose 1 TAB; Start 11/17/18 at 14:30 Albumin Human 50 ml @ 100 mls/hr WITH DIALYSIS PRN IV SBP<90 Last administered on 12/13/18 11:03; Admin Dose 100 MLS/HR; Start 11/18/18 at 14:30 Morphine Sulfate (morphine) 6 mg Q4H PRN PO SEVERE PAIN LEVEL 7-10 Last admi nistered on 12/13/18 21:31; Admin Dose 6 MG; Start 11/18/18 at 23:00 Docusate Sodium (Colace Liquid Cup) 100 mg DAILY GTB Last administered on 12/24/18 08:55; Admin Dose 100 MG; Start 11/19/18 at 09:30 Multivit/Ca Carb/ B Cmplx/FA/Prenat (Kianna-Roque) 1 tab DAILY GTB Last administered on 12/25/18 09:44; Admin Dose 1 TAB; Start 11/24/18 at 09:00 Lansoprazole (Prevacid) 30 mg DAILY GTB Last administered on 12/25/18 09:44; Admin Dose 30 MG; Start 11/26/18 at 09:00 Acetaminophen (Tylenol Supp) 650 mg Q4H PRN [place] MILD PAIN(1-3) OR TEMP>38C Last administered on 11/26/18 08:32; Admin Dose 650 MG; Start 11/26/18 at 08:30 Epoetin Michael (Epogen (Esrd)) 4,000 units MoWeFr@17 SC Last administered on 12/24/18 17:12; Admin Dose 4,000 UNITS; Start 12/06/18 at 17:00 Hydralazine HCl (Apresoline) 50 mg Q8 PO Last administered on 12/25/18 13:03; Admin Dose 50 MG; Start 12/07/18 at 22:00 Metoprolol Tartrate (Lopressor) 100 mg BID GTB Last administered on 12/25/18 09:43; Admin Dose 100 MG; Start 12/13/18 at 21:00 Aspirin (Halfprin) 81 mg DAILY PO Last administered on 12/25/18 09:44; Admin Dose 81 MG; Start 12/13/18 at 19:30 Senna (Senokot) 1 tab BID PO Last administered on 12/24/18 21:16; Admin Dose 1 TAB; Start 12/17/18 at 21:00 Acetaminophen (Tylenol Tab) 650 mg Q6H PRN PO PAIN LEVEL 1-3 OR FEVER Last administered on 12/21/18 05:01; Admin Dose 650 MG; Start 12/17/18 at 15:00 Albuterol/ Ipratropium (Duoneb) 3 ml Q6H RESP THERAPY PRN HHN sob Last administered on 12/19/18 03:51; Admin Dose 3 ML; Start 12/17/18 at 09:00 Docusate Sodium (Colace) 100 mg Q12H PRN PO CONSTIPATION Last administered on 12/21/18 05:01; Admin Dose 100 MG; Start 12/17/18 at 21:00 Ferrous Sulfate (Feosol Liquid Cup) 300 mg BID GTB Last administered on 12/25/18 09:42; Admin Dose 300 MG; Start 12/17/18 at 21:00 Guaifenesin/ Dextromethorphan (Robitussin Dm Liquid Cup) 5 ml Q4H PRN PO cough Last administered on 12/24/18 21:16; Admin Dose 5 ML; Start 12/17/18 at 18:00 Linagliptin (Tradjenta) 5 mg DAILY GTB Last administered on 12/25/18 09:46; Admin Dose 5 MG; Start 12/17/18 at 09:00 Folic Acid (Folic Acid) 1 mg DAILY GTB Last administered on 12/25/18 09:43; Admin Dose 1 MG; Start 12/18/18 at 09:00 Metoclopramide HCl (Reglan) 5 mg Q8 PRN IV VOMITTING; Start 12/20/18 at 10:00 IV Flush (NS 10 ml) 10 ml AFTER DIALYSIS CATHETER ; Start 12/22/18 at 10:00 Voriconazole (Vfend) 200 mg BID PO Last administered on 12/25/18 09:44; Admin Dose 200 MG; Start 12/22/18 at 11:00 Magnesium Hydroxide (Milk Of Mag) 30 ml DAILY PRN PO CONSTIPATION; Start 12/22/18 at 17:00 Sodium Chloride (NS) -To prime the dialy... DIRECTED FOR HD PRN IV HD; Start 12/23/18 at 16:00 Metoclopramide HCl (Reglan) 5 mg Q6 IV Last administered on 12/25/18at 17:26; Admin Dose 5 MG; Start 12/24/18 at 12:00 Amlodipine Besylate (Norvasc) 5 mg DAILY GTB Last administered on 12/25/18at 15:50; Admin Dose 5 MG; Start 12/25/18 at 15:30 Assessment/Plan Hospital Course (Demo Recall) P-atrial fibrillation rapid ventricular response: Currently back in sinus rhythm fungemia /fungal urinary tract infection Status post right hand hematoma: Status post I&D Renal failure on dialysis Hypertension Dementia Anemia Possible GI bleed: Status post EGD AI Recommendations: pt is not on full anticoagulation due to the fall risk as well as anemia cont beta-farrah Dialysis as per renal team Neuro workup and treatment as per internal medicine Antibiotic as per ID and internal medicine asa for now and monitor Thank you for his referral. We will continue to follow along with you as needed basis CHRISTEN ESCOBEDO MD [facility] CHRISTEN ESCOBEDO MD Dec 25, 2018 18:02
--- NOTE | 2018-12-25 18:15 | PN ---
DATE: 12/25/2018 SUBJECTIVE: The patient is seen verbal, more awake, looks better. Blood pressure unfortunately is s lightly high, fluctuated from the 160s to 180s. We will adjust home medications. PHYSICAL EXAMINATION: VITAL SIGNS: Temperature 98, pulse 74, respirations 16, blood pressure 161/80, saturation 96% on 3 l iters. GENERAL: No acute distress, awake, alert. CARDIOVASCULAR: S1, S2, regular rate. LUNGS: Clear. ABDOMEN: Soft, nontender. EXTREMITIES: No clubbing, cyanosis, or edema. LABORATORY DATA: No new labs today. Yesterday, white count was 7, hemoglobin 7.8. Last glucose lev el 186 and 114. MEDICATIONS: The patient's meds were all reviewed, include: 1. Reglan 5 IV q.6h. 2. Milk of magnesia p.r.n. 3. Vfend 200 b.i.d. 4. Reglan 5 mg IV q.8h. p.r.n. 5. Folic acid 1 mg daily. 6. Senna 1 tab b.i.d. 7. Colace 100 q.12h. p.r.n. 8. Ferrous sulfate 300 b.i.d. 9. Robitussin p.r.n. 10. Tylenol p.r.n. 11. DuoNeb p.r.n. 12. Tradjenta 5 mg daily. 13. Lopressor 100 b.i.d. 14. Aspirin 81 mg daily. 15. Hydralazine 50 q.8h. 16. Epogen every Thursday, Thursday, Thursday. 17. Prevacid 10 mg daily. 18. Tylenol p.r.n. 19. Kianna-Roque 1 tab daily. 20. Colace 100 daily. 21. Morphine p.r.n. 22. Moran p.r.n. 23. Hydralazine p.r.n. 24. Zofran p.r.n. ASSESSMENT AND PLAN: This is an 83-year-old [place] female with end-stage renal disease, advanced d ementia, atherosclerotic cardiovascular disease, chronic obstructive pulmonary disease, status post r ight hand hematoma evacuation, status post line sepsis, bacteremia, fungemia, urinary tract infection , waxing and waning mental status. 1. Respiratory. Stable. O2 support as needed. Continue aspiration precautions. On Reglan to assi st with absorption or for G-tube feeding and also prevent vomiting. 2. Cardiovascular. Vitals are stable. 3. Anemia. H and H will be monitored. Continue Epogen and transfuse p.r.n. 4. End-stage renal disease, dialysis 3 times a week Thursday, Thursday and Thursday. 5. Hypertension. Titrate medications up. 6. Diabetes mellitus. Glucose level remains in the 100s. 7. Urinary tract infection on Vfend. 8. Dysphagia. Continue aspiration precautions, head elevation and G-tube feeding. 9. Clinically improved. Placement is in process. We will follow. Dictated By: DYLON HULL/MADAN Conf#: [id number] DID#: [id number] CC: DYLON WALLS MD;*EndCC*
[2018-12-25] MEDS: HYDROCODONE/APAP (5/325) TAB PO PRN (21:19)
[2018-12-26] MEDS: METOCLOPRAMIDE 10 MG INJ IV SCH ×5 (00:30→23:57)
[2018-12-26 02:00] VITALS: BP 159/73; PULSE 66; RESP 18
[2018-12-26 07:35] VITALS: BP 150/65; PULSE 68; RESP 17
[2018-12-26] MEDS: SENNA TAB PO SCH ×2 (09:52→22:10)
[2018-12-26] MEDS: VORICONAZOLE 200 MG TAB PO SCH ×2 (09:52→22:10)
[2018-12-26] MEDS: LINAGLIPTIN 5 MG TABLET GTB SCH (09:52)
[2018-12-26] MEDS: MULTIVIT/CA CARB/B CMPLX/FA TAB GTB SCH (09:52)
[2018-12-26] MEDS: FOLIC ACID 1 MG TAB GTB SCH (09:52)
[2018-12-26] MEDS: LANSOPRAZOLE 30 MG CAP GTB SCH (09:52)
[2018-12-26] MEDS: FERROUS SULFATE 60 MG/ML 5ML CUP GTB SCH ×2 (09:59→22:09)
[2018-12-26] MEDS: ASPIRIN (EC) 81 MG TAB PO SCH (09:59)
[2018-12-26] MEDS: AMLODIPINE 5 MG TAB GTB SCH (09:59)
[2018-12-26] MEDS: METOPROLOL 50 MG TAB GTB SCH ×2 (09:59→22:09)
[2018-12-26] MEDS: DOCUSATE SODIUM 10 MG/ML (10ML CUP) GTB SCH (10:00)
[2018-12-26 14:05] VITALS: BP 140/64; PULSE 67; RESP 17
--- NOTE | 2018-12-26 16:22 | CONS ---
Assessment/Plan Assessment/Plan Hospital Course (Demo Recall) ID PROGRESS NOTE CURRENT ABX: DAY #=> VFEND s/p Merrem # + Cancidas 24H INTERVAL SUMMARY * DC planning in process -- pending placement * Patient in bed -- resting with eyes closed, she awakens easily, VSS, NAD, without dyspnea on room air * Indwelling: Left chest PermCath, PEG MICRO * 12/20/18 URINE Cx (+) Glabrata URINE CULTURE Final Organism 1 TYREE GLABRATA COLONY COUNT 30,000 - 40,000 CFU/ml * 12/20/18 BCx (-) * 12/18/18 BCx (-) * 12/06/18 URINE Cx (+) Glabrata * 12/03/18 BCx (-) * 12/01/18 BCx (-) * 11/29/18 BCx (+) Glabrata * 11/24/18 BCX (+) Glabrata = fungemia PHYSICAL EXAMINATION: GENERAL: Afebrile, VSS, HEENT: AT, NC, anicteric NECK: Supple, trach CHEST: Equal chest rise bilaterally, without dyspnea on observation HEART: Pulse RRR ABDOMEN: Soft / NT EXTREMITIES: Warm, dry - Right hand w/edema and ecchymosis; no open skin seen - SKIN: No rash, no diaphoresis ID ASSESSMENT 83 yo F w/ DEMENTIA admit with: 1. FUNGEMIA == secondary to GLABRATA UTI 2. Status post VRE bacteremia, status post new Pcath 3. End-stage renal disease, hemodialysis dependent 4. Health care Acquired PNA -- ?ASP PNA? 5. Right hand hematoma, status post I&D 11/17/18 6. Diabetes 7. Anemia 8. Failure to thrive (-)MRSA Nares ABX ALLERGIES: KNDA INVASIVES: PIV, Left chest PermCath CURRENT ABX: DAY #=> VFEND s/p Merrem # + Cancidas ID RECOMMENDATIONS/PLAN: Continue on Vfend==>March DC on VFEND to complete 14 days for recurrent Glabrata UTI when cleared by primary . Consultation Date/Type/Reason Admit Date/Time Nov 16, 2018 at 05:51 Initial Consult Date 11/16/18 Requesting Provider: DYLON WALLS MD Date/Time of Note DATE: 12/26/18 TIME: 16:20 Exam/Review of Systems Exam Vitals Vital Signs Date Temp Pulse Resp B/P (MAP) Pulse Ox O2 O2 Flow FiO2 Time Delivery Rate 12/26/18 98.0 67 17 140/64 100 Room Air 14:05 (89) 12/26/18 2.0 11:51 Intake and Output 12/25/18 12/25/18 12/26/18 1515:00 23:00 07:00 IntakeIntake Total 440 ml BalanceBalance 440 ml Results Result Diagram: 12/24/1862112/24/18621 Medications Medication Current Medications IV Flush (NS 3 ml) 3 ml PER PROTOCOL IV ; Start 11/16/18 at 09:00 Ondansetron HCl (Zofran Inj) 4 mg Q6H PRN IV NAUSEA AND/OR VOMITING Last administered on 12/19/18 05:53; Admin Dose 4 MG; Start 11/16/18 at 09:00 Hydralazine HCl (Apresoline) 10 mg Q4H PRN IV ELEVATED BLOOD PRESSURE Last administered on 12/22/18 19:40; Admin Dose 10 MG; Start 11/17/18 at 10:30 Acetaminophen/ Hydrocodone Bitart ([place] (5/325)) 1 tab Q3H PRN PO MODERATE PAIN LEVEL 4-6 Last administered on 12/25/18 21:19; Admin Dose 1 TAB; Start 11/17/18 at 14:30 Albumin Human 50 ml @ 100 mls/hr WITH DIALYSIS PRN IV SBP<90 Last administered on 12/13/18 11:03; Admin Dose 100 MLS/HR; Start 11/18/18 at 14:30 Morphine Sulfate (morphine) 6 mg Q4H PRN PO SEVERE PAIN LEVEL 7-10 Last administered on 12/13/18 21:31; Admin Dose 6 MG; Start 11/18/18 at 23:00 Docusate Sodium (Colace Liquid Cup) 100 mg DAILY GTB Last administered on 12/26/18 10:00; Admin Dose 100 MG; Start 11/19/18 at 09:30 Multivit/Ca Carb/ B Cmplx/FA/Prenat (Kianna-Roque) 1 tab DAILY GTB Last administered on 12/26/18 09:52; Admin Dose 1 TAB; Start 11/24/18 at 09:00 Lansoprazole (Prevacid) 30 mg DAILY GTB Last administered on 12/26/18 09:52; Admin Dose 30 MG; Start 11/26/18 at 09:00 Acetaminophen (Tylenol Supp) 650 mg Q4H PRN [place] MILD PAIN(1-3) OR TEMP>38C Last administered on 11/26/18 08:32; Admin Dose 650 MG; Start 11/26/18 at 08:30 Epoetin Michael (Epogen (Esrd)) 4,000 units MoWeFr@17 SC Last administered on 12/24/18 17:12; Admin Dose 4,000 UNITS; Start 12/06/18 at 17:00 Hydralazine HCl (Apresoline) 50 mg Q8 PO Last administered on 12/26/18 15:21; Admin Dose 50 MG; Start 12/07/18 at 22:00 Metoprolol Tartrate (Lopressor) 100 mg BID GTB Last administered on 12/26/18 09:59; Admin Dose 100 MG; Start 12/13/18 at 21:00 Aspirin (Halfprin) 81 mg DAILY PO Last administered on 12/26/18 09:59; Admin Dose 81 MG; Start 12/13/18 at 19:30 Senna (Senokot) 1 tab BID PO Last administered on 12/26/18 09:52; Admin Dose 1 TAB; Start 12/17/18 at 21:00 Acetaminophen (Tylenol Tab) 650 mg Q6H PRN PO PAIN LEVEL 1-3 OR FEVER Last administered on 12/21/18 05:01; Admin Dose 650 MG; Start 12/17/18 at 15:00 Albuterol/ Ipratropium (Duoneb) 3 ml Q6H RESP THERAPY PRN HHN sob Last a dministered on 12/19/18 03:51; Admin Dose 3 ML; Start 12/17/18 at 09:00 Docusate Sodium (Colace) 100 mg Q12H PRN PO CONSTIPATION Last administered on 12/21/18 05:01; Admin Dose 100 MG; Start 12/17/18 at 21:00 Ferrous Sulfate (Feosol Liquid Cup) 300 mg BID GTB Last administered on 12/26/18 09:59; Admin Dose 300 MG; Start 12/17/18 at 21:00 Guaifenesin/ Dextromethorphan (Robitussin Dm Liquid Cup) 5 ml Q4H PRN PO cough Last administered on 12/24/18 21:16; Admin Dose 5 ML; Start 12/17/18 at 18:00 Linagliptin (Tradjenta) 5 mg DAILY GTB Last administered on 12/26/18at 09:52; Admin Dose 5 MG; Start 12/17/18 at 09:00 Folic Acid (Folic Acid) 1 mg DAILY GTB Last administered on 12/26/18at 09:52; Admin Dose 1 MG; Start 12/18/18 at 09:00 Metoclopramide HCl (Reglan) 5 mg Q8 PRN IV VOMITTING; Start 12/20/18 at 10:00 IV Flush (NS 10 ml) 10 ml AFTER DIALYSIS CATHETER ; Start 12/22/18 at 10:00 Voriconazole (Vfend) 200 mg BID PO Last administered on 12/26/18 09:52; Admin Dose 200 MG; Start 12/22/18 at 11:00 Magnesium Hydroxide (Milk Of Mag) 30 ml DAILY PRN PO CONSTIPATION; Start 12/22/18 at 17:00 Sodium Chloride (NS) -To prime the dialy... DIRECTED FOR HD PRN IV HD; Start 12/23/18 at 16:00 Metoclopramide HCl (Reglan) 5 mg Q6 IV Last administered on 12/26/18at 15:21; Admin Dose 5 MG; Start 12/24/18 at 12:00 Amlodipine Besylate (Norvasc) 5 mg DAILY GTB Last administered on 12/26/18at 09:59; Admin Dose 5 MG; Start 12/25/18 at 15:30 Miscellaneous Information (*Order Clarification Bulletin) APAP SUPPOSITORY WILL EXPI... Q8H XX ; Start 12/26/18 at 09:00 Miscellaneous Information (*Order Clarification Bulletin) MEDICATION REQUIRES CLARIFICATI... Q8H XX ; Start 12/26/18 at 09:30 SEVERO GARCIA NP Dec 26, 2018 16:22
--- NOTE | 2018-12-26 16:37 | CONS ---
Consult Date/Type/Reason Admit Date/Time Nov 16, 2018 at 05:51 Initial Consult Date 11/16/18 Type of Consultation: cv Requesting Provider: DYLON WALLS MD Date/Time of Note DATE: 12/26/18 TIME: 16:37 Subjective Cardiology follow up note Sl DW/ Staff and telemetry was reviewed. Patient is off tele now pt continues to be confused but calm at the moment no report of any chest pain or pressure or palpitations but pt is a very poor historian Events noted. 12/13/18: Patient went into atrial fibrillation rapid ventricular response during hemodialysis . Patient has been transferred to telemetry and converted back to sinus rhythm remains in sinus rhythm s/p I/D 11/17 EGD 11.18.18 O: General: Elderly frail female in no acute distress HEENT: NC/AT. Eyes are closed NECK: NO JVD. no stridor. CV: RRR. systolic murmur; no gallop or rubs. PULM: no wheezing or rhonchi. GI: SOFT, NT, ND, no rebound or guarding neuro: SLEEPING Psych: calm now rectal: deferred Objective Vitals Vital Signs Date Temp Pulse Resp B/P (MAP) Pulse Ox O2 O2 Flow FiO2 Time Delivery Rate 12/26/18 98.0 67 17 140/64 100 Room Air 14:05 (89) 12/26/18 2.0 11:51 Intake and Output 12/25/18 12/25/18 12/26/18 1515:00 23:00 07:00 IntakeIntake Total 440 ml BalanceBalance 440 ml Results/Medications Result Diagram: 12/24/1862112/24/18621 Home Meds Reported Medications Sennosides* (Senna Lax*) 8.6 Mg Tablet, 1 TAB PO BID, TAB 11/16/18 Sevelamer Carbonate* (Renvela*) 0.8 Gm Powd.pack, 0.8 GM PO WITH MEALS, PACKET 11/16/18 Lansoprazole* (Lansoprazole*) 30 Mg Capsule.dr, 30 MG PO QAM, CAP 11/16/18 Hydralazine Hcl* (Hydralazine Hcl*) 25 Mg Tab, 25 MG PO Q8, #90 TAB 11/16/18 Ferrous Sulfate* (Ferrous Sulfate*) 325 Mg Tabec, 325 MG PO BID for anemia, TAB 11/16/18 Valproate Sodium (Valproic Acid) 250 Mg/5 Ml Solution, 250 MG PO Q8, ML 11/16/18 Insulin Aspart* (Novolog Insulin Pen*) 100 Unit/Ml Soln, 0 SC .SLIDING SCALE AC, EA IF BS 160-200=2 UNITS,201-250=4 UNITS,251-300=8 UNITS,301-350=12 UNITS;351-400=16 UNITS THEN CALL MD. 10/16/18 Ondansetron Hcl* (Zofran*) 4 Mg Tab, 4 MG GTB Q4H PRN for NAUSEA AND OR VOMITING, TAB 10/16/18 Linagliptin (TRADJENTA) 5 Mg Tablet, 5 MG GTB DAILY, TAB 10/16/18 Quetiapine Fumarate* (Seroquel*) 25 Mg Tablet, 25 MG GTB BID, #60 TAB 10/16/18 [Nephro-Roque] No Conflict Check, 0.8 MG GTB DAILY 10/16/18 Polyethylene Glycol* (Miralax*) 17 Gm Powd.pack, 17 GM GTB Q24H, #30 PACKET 10/16/18 Metoprolol Tartrate* (Lopressor*) 50 Mg Tab, 50 MG GTB DAILY, #60 TAB Q MON,WED,FRI,SUN,HOLD FOR SBP<110 OR CO<60 10/16/18 Metoprolol Tartrate* (Lopressor*) 50 Mg Tab, 50 MG GTB BID, #60 TAB QTUE,ANDREW,SAT,HOLD FOR SBP<110 OR CO<60 10/16/18 Linaclotide (LINZESS) 145 Mcg Capsule, 145 MCG GTB DAILY, #30 CAP 10/16/18 Ipratropium-Albuterol (Ipratropium-Albuterol) 0.5-3 Mg/3 Ml Ampul.neb, 3 ML INHALATION Q6, #30 VIAL FOR 14 DAYS,STOP DATE 10/17/18 10/16/18 Hydralazine Hcl* (Hydralazine Hcl*) 25 Mg Tab, 25 MG GTB DAILY, #60 TAB Q TUE,ANDREW,SAT,HOLD IF SBP<110 OR CO<60 10/16/18 Folic Acid* (Folic Acid*) 1 Mg Tablet, 1 MG GTB DAILY, TAB 10/16/18 Docusate Sodium* (Colace*) 100 Mg Capsule, 100 MG GTB DAILY, #30 CAP 10/16/18 Lorazepam* (Lorazepam*) 1 Mg Tablet, 1 MG GTB HS PRN for ANXIETY, #30 TAB Q TUE,ANDREW,SAT 10/16/18 Amlodipine Besylate* (Norvasc*) 5 Mg Tablet, 5 MG GTB BID, TAB TAKE Q TUE,ANDREW,SAT FOR HTN, HOLD FOR SBP<110 OR CO<60 10/16/18 Acetaminophen* (Acetaminophen*) 650 Mg Tablet, 650 MG GTB Q6H PRN for PAIN LEVEL 1-08/18, #30 TAB 10/16/18 Medications Current Medications IV Flush (NS 3 ml) 3 ml PER PROTOCOL IV ; Start 11/16/18 at 09:00 Ondansetron HCl (Zofran Inj) 4 mg Q6H PRN IV NAUSEA AND/OR VOMITING Last admin istered on 12/19/18at 05:53; Admin Dose 4 MG; Start 11/16/18 at 09:00 Hydralazine HCl (Apresoline) 10 mg Q4H PRN IV ELEVATED BLOOD PRESSURE Last administered on 12/22/18at 19:40; Admin Dose 10 MG; Start 11/17/18 at 10:30 Acetaminophen/ Hydrocodone Bitart ([place] (5/325)) 1 tab Q3H PRN PO MODERATE PAIN LEVEL 4-6 Last administered on 12/25/18at 21:19; Admin Dose 1 TAB; Start 11/17/18 at 14:30 Albumin Human 50 ml @ 100 mls/hr WITH DIALYSIS PRN IV SBP<90 Last administered on 12/13/18at 11:03; Admin Dose 100 MLS/HR; Start 11/18/18 at 14:30 Morphine Sulfate (morphine) 6 mg Q4H PRN PO SEVERE PAIN LEVEL 7-10 Last administered on 12/13/18at 21:31; Admin Dose 6 MG; Start 11/18/18 at 23:00 Docusate Sodium (Colace Liquid Cup) 100 mg DAILY GTB Last administered on 12/26/18at 10:00; Admin Dose 100 MG; Start 11/19/18 at 09:30 Multivit/Ca Carb/ B Cmplx/FA/Prenat (Kianna-Roque) 1 tab DAILY GTB Last administered on 12/26/18 09:52; Admin Dose 1 TAB; Start 11/24/18 at 09:00 Lansoprazole (Prevacid) 30 mg DAILY GTB Last administered on 12/26/18 09:52; Admin Dose 30 MG; Start 11/26/18 at 09:00 Acetaminophen (Tylenol Supp) 650 mg Q4H PRN CO MILD PAIN(1-3) OR TEMP>38C Last administered on 11/26/18 08:32; Admin Dose 650 MG; Start 11/26/18 at 08:30 Epoetin Michael (Epogen (Esrd)) 4,000 units MoWeFr@17 SC Last administered on 12/24/18 17:12; Admin Dose 4,000 UNITS; Start 12/06/18 at 17:00 Hydralazine HCl (Apresoline) 50 mg Q8 PO Last administered on 12/26/18 15:21; Admin Dose 50 MG; Start 12/07/18 at 22:00 Metoprolol Tartrate (Lopressor) 100 mg BID GTB Last administered on 12/26/18 09:59; Admin Dose 100 MG; Start 12/13/18 at 21:00 Aspirin (Halfprin) 81 mg DAILY PO Last administered on 12/26/18 09:59; Admin Dose 81 MG; Start 12/13/18 at 19:30 Senna (Senokot) 1 tab BID PO Last administered on 12/26/18 09:52; Admin Dose 1 TAB; Start 12/17/18 at 21:00 Acetaminophen (Tylenol Tab) 650 mg Q6H PRN PO PAIN LEVEL 1-3 OR FEVER Last administered on 12/21/18 05:01; Admin Dose 650 MG; Start 12/17/18 at 15:00 Albuterol/ Ipratropium (Duoneb) 3 ml Q6H RESP THERAPY PRN HHN sob Last administered on 12/19/18 03:51; Admin Dose 3 ML; Start 12/17/18 at 09:00 Docusate Sodium (Colace) 100 mg Q12H PRN PO CONSTIPATION Last administered on 12/21/18 05:01; Admin Dose 100 MG; Start 12/17/18 at 21:00 Ferrous Sulfate (Feosol Liquid Cup) 300 mg BID GTB Last administered on 12/26/18 09:59; Admin Dose 300 MG; Start 12/17/18 at 21:00 Guaifenesin/ Dextromethorphan (Robitussin Dm Liquid Cup) 5 ml Q4H PRN PO cough Last administered on 12/24/18 21:16; Admin Dose 5 ML; Start 12/17/18 at 18:00 Linagliptin (Tradjenta) 5 mg DAILY GTB Last administered on 12/26/18 09:52; Admin Dose 5 MG; Start 12/17/18 at 09:00 Folic Acid (Folic Acid) 1 mg DAILY GTB Last administered on 12/26/18 09:52; Admin Dose 1 MG; Start 12/18/18 at 09:00 Metoclopramide HCl (Reglan) 5 mg Q8 PRN IV VOMITTING; Start 12/20/18 at 10:00 IV Flush (NS 10 ml) 10 ml AFTER DIALYSIS CATHETER ; Start 12/22/18 at 10:00 Voriconazole (Vfend) 200 mg BID PO Last administered on 12/26/18 09:52; Admin Dose 200 MG; Start 12/22/18 at 11:00 Magnesium Hydroxide (Milk Of Mag) 30 ml DAILY PRN PO CONSTIPATION; Start 12/22/18 at 17:00 Sodium Chloride (NS) -To prime the dialy... DIRECTED FOR HD PRN IV HD; Start 12/23/18 at 16:00 Metoclopramide HCl (Reglan) 5 mg Q6 IV Last administered on 12/26/18at 15:21; Admin Dose 5 MG; Start 12/24/18 at 12:00 Amlodipine Besylate (Norvasc) 5 mg DAILY GTB Last administered on 12/26/18 09:59; Admin Dose 5 MG; Start 12/25/18 at 15:30 Miscellaneous Information (*Order Clarification Bulletin) APAP SUPPOSITORY WILL EXPI... Q8H XX ; Start 12/26/18 at 09:00 Miscellaneous Information (*Order Clarification Bulletin) MEDICATION REQUIRES CLARIFICATI... Q8H XX ; Start 12/26/18 at 09:30 Assessment/Plan Hospital Course (Demo Recall) P-atrial fibrillation rapid ventricular response: Currently back in sinus rhythm fungemia /fungal urinary tract infection Status post right hand hematoma: Status post I&D Renal failure on dialysis Hypertension Dementia Anemia Possible GI bleed: Status post EGD AI Recommendations: pt is not on full anticoagulation due to the fall risk as well as anemia cont beta-farrah Dialysis as per renal team Neuro workup and treatment as per internal medicine Antibiotic as per ID and internal medicine asa for now and monitor Thank you for his referral. We will continue to follow along with you as needed basis CHRISTEN ESCOBEDO MD [facility] CHRISTEN ESCOBEDO MD Dec 26, 2018 16:37
--- NOTE | 2018-12-26 16:41 | PN ---
DATE: 12/26/2018 SUBJECTIVE: The patient was seen lying in bed comfortably in no distress. PHYSICAL EXAMINATION: VITAL SIGNS: Temperature 97.5, pulse 60, respiration 17, blood pressure 150/65, saturation 95% on 2 liters. GENERAL: No acute distress. HEENT: Normocephalic, atraumatic, pale. CARDIOVASCULAR: S1 and S2. Regular rate. LUNGS: Clear. ABDOMEN: Soft. G-tube in place. EXTREMITIES: No clubbing, cyanosis or edema. On right hand, there is wound in the anterior aspect o f the hand. Wound care is being provided. LABORATORY DATA: Last CBC was done on 12/24/2018 shows a white count of 7, hemoglobin 7.8. Chemistr y was reviewed. Last glucose was 186 and 114. MEDICATIONS: Include: 1. Amlodipine 5 mg daily. 2. Reglan 5 mg IV q.6. 3. Vfend 200 b.i.d. 4. Milk of [place] p.r.n. 5. p.r.n. 6. Folic acid 1 mg daily. 7. Senna 1 tab b.i.d. 8. Colace 100 p.r.n. 9. Ferrous sulfate 300 b.i.d. 10. Robitussin p.r.n. 11. Tylenol p.r.n. 12. DuoNeb p.r.n. 13. Tradjenta 5 mg daily. 14. Lopressor 100 b.i.d. 15. Aspirin 81 daily. 16. Hydralazine 50 q.8. 17. Epogen every Thursday, Thursday, Thursday. 18. Prevacid 30 mg daily. 19. Tylenol p.r.n. 20. Kianna-Roque 1 tab daily. ASSESSMENT AND PLAN: This is an 83-year-old [place] female with end-stage renal disease, advanced d ementia, atherosclerotic cardiovascular disease, chronic obstructive pulmonary disease, status post r ight hand hematoma evacuation, status post line sepsis, bacteremia, fungemia, urinary tract infection , waxing and waning mental status. 1. Respiratory. Continue O2 support. Aspiration precautions. 2. Cardiovascular. Vitals are stable. Blood pressure is better controlled. 3. Anemia. Monitor H and H. Continue Epogen. Follow up H and H tomorrow. 4. End-stage renal disease. Next dialysis is tomorrow, every Thursday, Thursday and Thursday. 5. Diabetes mellitus. Glucose level in the 100s. 6. Urinary tract infection, on Vfend. 7. Dysphagia. Continue G-tube feeding, n.p.o. status. 8. Awaiting placement at a [facility] facility. Case management is assisting. We will follow. Dictated By: DYLON HULL/MADAN Conf#: [id number] DID#: [id number] CC: CHRISS WELCH MD;*EndCC*
--- NOTE | 2018-12-26 18:09 | CONS ---
Assessment/Plan Assessment/Plan Hospital Course (Demo Recall) 1. End-stage renal disease on hemodialysis. 2. Gastrointestinal bleed with melena, resolved. 3. Hypertension, controlled. 4. Diabetes mellitus type II controlled. 5. Right hand swelling, s/p I and D on 11/17/18 6. History of falls. 7. Vascular dementia. 8. History of sepsis with VRE. 9. Dysphagia, status post G-tube. 10. History of hip fracture. 11. Thrombocytopenia. 12. Atherosclerotic heart disease. 13. Pneumonia left side, resolved 14. Anemia 15. Fungemia. 16. UTI PLAN CONTINUE HD Consultation Date/Type/Reason Admit Date/Time Nov 16, 2018 at 05:51 Initial Consult Date 11/16/18 Type of Consult renal no sob Requesting Provider: DYLON WALLS MD Date/Time of Note DATE: 12/26/18 TIME: 18:07 24 HR Interval Summary Constitutional: no complaints Exam/Review of Systems Exam Vitals Vital Signs Date Temp Pulse Resp B/P (MAP) Pulse Ox O2 O2 Flow FiO2 Time Delivery Rate 12/26/18 98.0 67 17 140/64 100 Room Air 14:05 (89) 12/26/18 2.0 11:51 Intake and Output 12/25/18 12/25/18 12/26/18 1515:00 23:00 07:00 IntakeIntake Total 440 ml BalanceBalance 440 ml Respiratory: clear to auscultation Cardiovascular: regular rate and rhythm Gastrointestinal: soft, bowel sounds Musculoskeletal: nl extremities to inspection Results Result Diagram: 12/24/1862112/24/18621 Medications Medication Current Medications IV Flush (NS 3 ml) 3 ml PER PROTOCOL IV ; Start 11/16/18 at 09:00 Ondansetron HCl (Zofran Inj) 4 mg Q6H PRN IV NAUSEA AND/OR VOMITING Last administered on 12/19/18at 05:53; Admin Dose 4 MG; Start 11/16/18 at 09:00 Hydralazine HCl (Apresoline) 10 mg Q4H PRN IV ELEVATED BLOOD PRESSURE Last administered on 12/22/18at 19:40; Admin Dose 10 MG; Start 11/17/18 at 10:30 Acetaminophen/ Hydrocodone Bitart ([place] (5/325)) 1 tab Q3H PRN PO MODERATE PAIN LEVEL 4-6 Last administered on 12/25/18 21:19; Admin Dose 1 TAB; Start 11/17/18 at 14:30 Albumin Human 50 ml @ 100 mls/hr WITH DIALYSIS PRN IV SBP<90 Last administered on 12/13/18 11:03; Admin Dose 100 MLS/HR; Start 11/18/18 at 14:30 Morphine Sulfate (morphine) 6 mg Q4H PRN PO SEVERE PAIN LEVEL 7-10 Last administered on 12/13/18 21:31; Admin Dose 6 MG; Start 11/18/18 at 23:00 Docusate Sodium (Colace Liquid Cup) 100 mg DAILY GTB Last administered on 12/26/18 10:00; Admin Dose 100 MG; Start 11/19/18 at 09:30 Multivit/Ca Carb/ B Cmplx/FA/Prenat (Kianna-Roque) 1 tab DAILY GTB Last administered on 12/26/18 09:52; Admin Dose 1 TAB; Start 11/24/18 at 09:00 Lansoprazole (Prevacid) 30 mg DAILY GTB Last administered on 12/26/18 09:52; Admin Dose 30 MG; Start 11/26/18 at 09:00 Acetaminophen (Tylenol Supp) 650 mg Q4H PRN MA MILD PAIN(1-3) OR TEMP>38C Last administered on 11/26/18 08:32; Admin Dose 650 MG; Start 11/26/18 at 08:30 Epoetin Michael (Epogen (Esrd)) 4,000 units MoWeFr@17 SC Last administered on 12/24/18 17:12; Admin Dose 4,000 UNITS; Start 12/06/18 at 17:00 Hydralazine HCl (Apresoline) 50 mg Q8 PO Last administered on 12/26/18 15:21; Admin Dose 50 MG; Start 12/07/18 at 22:00 Metoprolol Tartrate (Lopressor) 100 mg BID GTB Last administered on 12/26/18 09:59; Admin Dose 100 MG; Start 12/13/18 at 21:00 Aspirin (Halfprin) 81 mg DAILY PO Last administered on 12/26/18 09:59; Admin Dose 81 MG; Start 12/13/18 at 19:30 Senna (Senokot) 1 tab BID PO Last administered on 12/26/18 09:52; Admin Dose 1 TAB; Start 12/17/18 at 21:00 Acetaminophen (Tylenol Tab) 650 mg Q6H PRN PO PAIN LEVEL 1-3 OR FEVER Last administered on 12/21/18 05:01; Admin Dose 650 MG; Start 12/17/18 at 15:00 Albuterol/ Ipratropium (Duoneb) 3 ml Q6H RESP THERAPY PRN HHN sob Last administered on 12/19/18 03:51; Admin Dose 3 ML; Start 12/17/18 at 09:00 Docusate Sodium (Colace) 100 mg Q12H PRN PO CONSTIPATION Last administered on 12/21/18 05:01; Admin Dose 100 MG; Start 12/17/18 at 21:00 Ferrous Sulfate (Feosol Liquid Cup) 300 mg BID GTB Last administered on 12/26/18 09:59; Admin Dose 300 MG; Start 12/17/18 at 21:00 Guaifenesin/ Dextromethorphan (Robitussin Dm Liquid Cup) 5 ml Q4H PRN PO cough Last administered on 12/24/18 21:16; Admin Dose 5 ML; Start 12/17/18 at 18:00 Linagliptin (Tradjenta) 5 mg DAILY GTB Last administered on 12/26/18 09:52; Admin Dose 5 MG; Start 12/17/18 at 09:00 Folic Acid (Folic Acid) 1 mg DAILY GTB Last administered on 12/26/18 09:52; Admin Dose 1 MG; Start 12/18/18 at 09:00 Metoclopramide HCl (Reglan) 5 mg Q8 PRN IV VOMITTING; Start 12/20/18 at 10:00 IV Flush (NS 10 ml) 10 ml AFTER DIALYSIS CATHETER ; Start 12/22/18 at 10:00 Voriconazole (Vfend) 200 mg BID PO Last administered on 12/26/18 09:52; Admin Dose 200 MG; Start 12/22/18 at 11:00 Magnesium Hydroxide (Milk Of Mag) 30 ml DAILY PRN PO CONSTIPATION; Start 12/22/18 at 17:00 Sodium Chloride (NS) -To prime the dialy... DIRECTED FOR HD PRN IV HD; Start 12/23/18 at 16:00 Metoclopramide HCl (Reglan) 5 mg Q6 IV Last administered on 12/26/18at 15:21; Admin Dose 5 MG; Start 12/24/18 at 12:00 Amlodipine Besylate (Norvasc) 5 mg DAILY GTB Last administered on 12/26/18at 09:59; Admin Dose 5 MG; Start 12/25/18 at 15:30 Miscellaneous Information (*Order Clarification Bulletin) APAP SUPPOSITORY WILL EXPI... Q8H XX ; Start 12/26/18 at 09:00 Miscellaneous Information (*Order Clarification Bulletin) MEDICATION REQUIRES CLARIFICATI... Q8H XX ; Start 12/26/18 at 09:30 GEOFF KATHLEEN MD Dec 26, 2018 18:09
--- NOTE | 2018-12-26 18:37 | CONS ---
Assessment/Plan Assessment/Plan Assessment/Plan (Daily) Hospital Course (Demo Recall) 83 yo female in ESRD on HD presents for melena and anemia and also found to have edematous Rt hand/wrist 1. UGIB manifested through melena and anemia -no melena noted or GI bleeding noted by nursing staff -RESOLVED 2. Anemia, acute on chronic, acute likely due to blood loss in rt hand -No evidence of active GI bleeding, consider etiology of blood loss anemia to be from hematoma in hand -Fe wnl, TIBC low, Ferritin, folate, b12 high, FOB neg -STABLE 3. ESRD on HD -Followed by nephrology 4. Hematoma of Rt hand and wrist -I and D drainage by Dr. Dean 11/17 -IMPROVED 5. Dysphagia -on tube feeds and pureed nectar for oral gratification 6. DM2 7. HTN 8. H/O diastolic dysfunction heart failure 9. S/P EGD 11/18 10. Moderate gastritis with no bleeding noted. 11. Hospital acquired pneumonia -improved 12. Yeast in urine cx -cx 12/20 12. Emesis x 1 -resolved Gastric biopsy results: Stomach, biopsy: -- Antral and oxyntic mucosa showing minimal plasma cell infiltration and small focus of intestinal metaplasia. -- No Helicobacter pylori is identified in Giemsa stain (positive control concurrently reviewed). -- No evidence of dysplasia or malignancy. Plan: Continue with tube feeds at 20cc/hr If pt vomits again, Dr Welch may switch g tube to GJ tube FOB negative Reglan 5 mg prior to meals, low dose to due ESRD. Discussed with the staff nurse and told her to start the patient on Reglan and increase the feedings slowly to 40 cc/h Continue present care Monitor HH closely and for active GI bleeding The patient is tolerating feeding now she is on a continuous feeding rather than bolus feeding. Patient is tolerating feeding at 40 cc/h Consultation Date/Type/Reason Admit Date/Time Nov 16, 2018 at 05:51 Initial Consult Date 11/16/18 Requesting Provider: DYLON WALLS MD Date/Time of Note DATE: 12/26/18 TIME: 18:37 24 HR Interval Summary Constitutional: no complaints, improved Exam/Review of Systems Exam Vitals Vital Signs Date Temp Pulse Resp B/P (MAP) Pulse Ox O2 O2 Flow FiO2 Time Delivery Rate 12/26/18 98.0 67 17 140/64 100 Room Air 14:05 (89) 12/26/18 2.0 11:51 Intake and Output 12/25/18 12/25/18 12/26/18 1515:00 23:00 07:00 IntakeIntake Total 440 ml BalanceBalance 440 ml Constitutional: alert, oriented, well developed Psych: no complaints, nl mood/affect Head: normocephalic, atraumatic Eyes: nl conjunctiva, EOMI, nl lids, nl sclera, PERRL ENMT: nl external ears & nose, nl lips & teeth, nl nasal mucosa & septum Neck: supple, non-tender Respiratory: clear to auscultation, normal air movement Cardiovascular: regular rate and rhythm, nl pulses Gastrointestinal: soft, nl liver, spleen, non-tender Musculoskeletal: nl extremities to inspection, nl gait and stance Extremities: normal pulses 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: RIB BENDER II-XII intact, nl mental status, nl speech, nl strength Skin: nl turgor; No rash or lesions Lymph: nl lymph nodes Results Result Diagram: 12/24/1862112/24/18621 Medications Medication Current Medications IV Flush (NS 3 ml) 3 ml PER PROTOCOL IV ; Start 11/16/18 at 09:00 Ondansetron HCl (Zofran Inj) 4 mg Q6H PRN IV NAUSEA AND/OR VOMITING Last administered on 12/19/18 05:53; Admin Dose 4 MG; Start 11/16/18 at 09:00 Hydralazine HCl (Apresoline) 10 mg Q4H PRN IV ELEVATED BLOOD PRESSURE Last administered on 12/22/18 19:40; Admin Dose 10 MG; Start 11/17/18 at 10:30 Acetaminophen/ Hydrocodone Bitart ([place] (5/325)) 1 tab Q3H PRN PO MODERATE PAIN LEVEL 4-6 Last administered on 12/25/18 21:19; Admin Dose 1 TAB; Start 11/17/18 at 14:30 Albumin Human 50 ml @ 100 mls/hr WITH DIALYSIS PRN IV SBP<90 Last administered on 12/13/18 11:03; Admin Dose 100 MLS/HR; Start 11/18/18 at 14:30 Morphine Sulfate (morphine) 6 mg Q4H PRN PO SEVERE PAIN LEVEL 7-10 Last administered on 12/13/18 21:31; Admin Dose 6 MG; Start 11/18/18 at 23:00 Docusate Sodium (Colace Liquid Cup) 100 mg DAILY GTB Last administered on 12/26/18 10:00; Admin Dose 100 MG; Start 11/19/18 at 09:30 Multivit/Ca Carb/ B Cmplx/FA/Prenat (Kianna-Roque) 1 tab DAILY GTB Last administered on 12/26/18 09:52; Admin Dose 1 TAB; Start 11/24/18 at 09:00 Lansoprazole (Prevacid) 30 mg DAILY GTB Last administered on 12/26/18 09:52; Admin Dose 30 MG; Start 11/26/18 at 09:00 Acetaminophen (Tylenol Supp) 650 mg Q4H PRN [place] MILD PAIN(1-3) OR TEMP>38C Last administered on 11/26/18 08:32; Admin Dose 650 MG; Start 11/26/18 at 08:30 Epoetin Michael (Epogen (Esrd)) 4,000 units MoWeFr@17 SC Last administered on 12/24/18 17:12; Admin Dose 4,000 UNITS; Start 12/06/18 at 17:00 Hydralazine HCl (Apresoline) 50 mg Q8 PO Last administered on 12/26/18 15:21; Admin Dose 50 MG; Start 12/07/18 at 22:00 Metoprolol Tartrate (Lopressor) 100 mg BID GTB Last administered on 12/26/18 09:59; Admin Dose 100 MG; Start 12/13/18 at 21:00 Aspirin (Halfprin) 81 mg DAILY PO Last administered on 12/26/18 09:59; Admin Dose 81 MG; Start 12/13/18 at 19:30 Senna (Senokot) 1 tab BID PO Last administered on 12/26/18 09:52; Admin Dose 1 TAB; Start 12/17/18 at 21:00 Acetaminophen (Tylenol Tab) 650 mg Q6H PRN PO PAIN LEVEL 1-3 OR FEVER Last administered on 12/21/18 05:01; Admin Dose 650 MG; Start 12/17/18 at 15:00 Albuterol/ Ipratropium (Duoneb) 3 ml Q6H RESP THERAPY PRN HHN sob Last administered on 12/19/18 03:51; Admin Dose 3 ML; Start 12/17/18 at 09:00 Docusate Sodium (Colace) 100 mg Q12H PRN PO CONSTIPATION Last administered on 12/21/18 05:01; Admin Dose 100 MG; Start 12/17/18 at 21:00 Ferrous Sulfate (Feosol Liquid Cup) 300 mg BID GTB Last administered on 12/26/18 09:59; Admin Dose 300 MG; Start 12/17/18 at 21:00 Guaifenesin/ Dextromethorphan (Robitussin Dm Liquid Cup) 5 ml Q4H PRN PO cough Last administered on 12/24/18 21:16; Admin Dose 5 ML; Start 12/17/18 at 18:00 Linagliptin (Tradjenta) 5 mg DAILY GTB Last administered on 12/26/18 09:52; Admin Dose 5 MG; Start 12/17/18 at 09:00 Folic Acid (Folic Acid) 1 mg DAILY GTB Last administered on 12/26/18 09:52; Admin Dose 1 MG; Start 12/18/18 at 09:00 Metoclopramide HCl (Reglan) 5 mg Q8 PRN IV VOMITTING; Start 12/20/18 at 10:00 IV Flush (NS 10 ml) 10 ml AFTER DIALYSIS CATHETER ; Start 12/22/18 at 10:00 Voriconazole (Vfend) 200 mg BID PO Last administered on 12/26/18 09:52; Admin Dose 200 MG; Start 12/22/18 at 11:00 Magnesium Hydroxide (Milk Of Mag) 30 ml DAILY PRN PO CONSTIPATION; Start 12/22/18 at 17:00 Sodium Chloride (NS) -To prime the dialy... DIRECTED FOR HD PRN IV HD; Start 12/23/18 at 16:00 Metoclopramide HCl (Reglan) 5 mg Q6 IV Last administered on 12/26/18 15:21; Admin Dose 5 MG; Start 12/24/18 at 12:00 Amlodipine Besylate (Norvasc) 5 mg DAILY GTB Last administered on 12/26/18 09:59; Admin Dose 5 MG; Start 12/25/18 at 15:30 Miscellaneous Information (*Order Clarification Bulletin) APAP SUPPOSITORY WILL EXPI... Q8H XX ; Start 12/26/18 at 09:00 Miscellaneous Information (*Order Clarification Bulletin) MEDICATION REQUIRES CLARIFICATI... Q8H XX ; Start 12/26/18 at 09:30 CHRISS WELCH MD Dec 26, 2018 18:37
[2018-12-26 19:57] VITALS: BP 116/56; PULSE 64; RESP 16
[2018-12-26] MEDS: HYDROCODONE/APAP (5/325) TAB PO PRN (22:10)
[2018-12-27] VITALS (17 sets, daily range): BP systolic 89–144; BP diastolic 38–80; PULSE 60–75; RESP 16–20
[2018-12-27] MEDS: METOCLOPRAMIDE 10 MG INJ IV SCH ×3 (05:57→21:30)
[2018-12-27] MEDS ORDERED: BISACODYL 10 MG SUPP PR ONE (08:00)
--- NOTE | 2018-12-27 08:00 | CONS ---
Assessment/Plan Assessment/Plan Hospital Course (Demo Recall) 83 yo female in ESRD on HD presents for melena and anemia and also found to have edematous Rt hand/wrist 1. UGIB manifested through melena and anemia -no melena noted or GI bleeding noted by nursing staff -RESOLVED 2. Anemia, acute on chronic, acute likely due to blood loss in rt hand -No evidence of active GI bleeding, consider etiology of blood loss anemia to be from hematoma in hand -Fe wnl, TIBC low, Ferritin, folate, b12 high, FOB neg -STABLE 3. ESRD on HD -Followed by nephrology 4. Hematoma of Rt hand and wrist -I and D drainage by Dr. Dean 11/17 -IMPROVED 5. Dysphagia -on tube feeds and pureed nectar for oral gratification 6. DM2 7. HTN 8. H/O diastolic dysfunction heart failure 9. S/P EGD 11/18 10. Moderate gastritis with no bleeding noted. 11. Hospital acquired pneumonia -improved 12. Yeast in urine cx -cx 12/20 12. Emesis x 1 -resolved Gastric biopsy results: Stomach, biopsy: -- Antral and oxyntic mucosa showing minimal plasma cell infiltration and small focus of intestinal metaplasia. -- No Helicobacter pylori is identified in Giemsa stain (positive control concurrently reviewed). -- No evidence of dysplasia or malignancy. Plan: Miralax Dulcolax supp 10 mg x 1 If pt vomits again, Dr Baird may switch g tube to GJ tube Reglan 5 mg prior to meals, low dose to due ESRD Continue present care Monitor HH closely and for active GI bleeding, Pt examined and plan of care discussed with Dr. Baird Consultation Date/Type/Reason Admit Date/Time Nov 16, 2018 at 05:51 Initial Consult Date 11/16/18 Requesting Provider: DYLON WALLS MD Date/Time of Note DATE: 12/27/18 TIME: 07:56 24 HR Interval Summary Free Text/Dictation No vomiting. Pt denies abd pain. RN and ACQUISITION ANALYST deny pt complaints of abd pain, nausea. hgb 7.9 and stable. NO evidence of GI bleeding. Exam/Review of Systems Exam Vitals Vital Signs Date Temp Pulse Resp B/P (MAP) Pulse Ox O2 O2 Flow FiO2 Time Delivery Rate 12/27/18 97.9 71 16 138/51 99 07:20 (80) 12/26/18 Room Air 14:05 12/26/18 2.0 11:51 Constitutional: alert Head: normocephalic Eyes: nl sclera, PERRL Respiratory: clear to auscultation, diminished breath sounds Cardiovascular: regular rate and rhythm Gastrointestinal: soft, non-tender 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: confused Results Result Diagram: 12/27/18 0510 12/27/18 0510 Results 24hrs Laboratory Tests Test 12/27/18 05:10 White Blood Count 7.0 Red Blood Count 3.01 L Hemoglobin 7.9 L Hematocrit 25.5 L Mean Corpuscular Volume 84.7 Mean Corpuscular Hemoglobin 26.2 L Mean Corpuscular Hemoglobin Concent 31.0 L Red Cell Distribution Width 16.8 H Platelet Count 202 Mean Platelet Volume 12.3 H Immature Granulocytes % 1.100 H Neutrophils % 62.0 Lymphocytes % 14.6 L Monocytes % 13.9 H Eosinophils % 8.0 H Basophils % 0.4 Nucleated Red Blood Cells % 1.0 H Immature Granulocytes # 0.080 H Neutrophils # 4.3 Lymphocytes # 1.0 Monocytes # 1.0 H Eosinophils # 0.6 H Basophils # 0.0 Nucleated Red Blood Cells # 0.1 H Sodium Level 137 Potassium Level 3.7 Chloride Level 97 Carbon Dioxide Level 32 H Anion Gap 8 Blood Urea Nitrogen 94 H Creatinine 2.66 H Est Glomerular Filtrat Rate mL/min Glucose Level 147 Calcium Level 8.9 Phosphorus Level 5.6 H Magnesium Level 3.0 H Medications Medication Current Medications IV Flush (NS 3 ml) 3 ml PER PROTOCOL IV ; Start 11/16/18 at 09:00 Ondansetron HCl (Zofran Inj) 4 mg Q6H PRN IV NAUSEA AND/OR VOMITING Last administered on 12/19/18at 05:53; Admin Dose 4 MG; Start 11/16/18 at 09:00 Hydralazine HCl (Apresoline) 10 mg Q4H PRN IV ELEVATED BLOOD PRESSURE Last administered on 12/22/18at 19:40; Admin Dose 10 MG; Start 11/17/18 at 10:30 Acetaminophen/ Hydrocodone Bitart ([place] (5/325)) 1 tab Q3H PRN PO MODERATE PAIN LEVEL 4-6 Last administered on 12/26/18at 22:10; Admin Dose 1 TAB; Start 11/17/18 at 14:30 Albumin Human 50 ml @ 100 mls/hr WITH DIALYSIS PRN IV SBP<90 Last administered on 12/13/18 11:03; Admin Dose 100 MLS/HR; Start 11/18/18 at 14:30 Morphine Sulfate (morphine) 6 mg Q4H PRN PO SEVERE PAIN LEVEL 7-10 Last admini stered on 12/13/18 21:31; Admin Dose 6 MG; Start 11/18/18 at 23:00 Docusate Sodium (Colace Liquid Cup) 100 mg DAILY GTB Last administered on 12/26/18 10:00; Admin Dose 100 MG; Start 11/19/18 at 09:30 Multivit/Ca Carb/ B Cmplx/FA/Prenat (Kianna-Roque) 1 tab DAILY GTB Last administered on 12/26/18 09:52; Admin Dose 1 TAB; Start 11/24/18 at 09:00 Lansoprazole (Prevacid) 30 mg DAILY GTB Last administered on 12/26/18 09:52; Admin Dose 30 MG; Start 11/26/18 at 09:00 Acetaminophen (Tylenol Supp) 650 mg Q4H PRN [place] MILD PAIN(1-3) OR TEMP>38C Last administered on 11/26/18 08:32; Admin Dose 650 MG; Start 11/26/18 at 08:30 Epoetin Michael (Epogen (Esrd)) 4,000 units MoWeFr@17 SC Last administered on 12/24/18 17:12; Admin Dose 4,000 UNITS; Start 12/06/18 at 17:00 Hydralazine HCl (Apresoline) 50 mg Q8 PO Last administered on 12/27/18 05:57; Admin Dose 50 MG; Start 12/07/18 at 22:00 Metoprolol Tartrate (Lopressor) 100 mg BID GTB Last administered on 12/26/18 22:09; Admin Dose 100 MG; Start 12/13/18 at 21:00 Aspirin (Halfprin) 81 mg DAILY PO Last administered on 12/26/18 09:59; Admin Dose 81 MG; Start 12/13/18 at 19:30 Senna (Senokot) 1 tab BID PO Last administered on 12/26/18 22:10; Admin Dose 1 TAB; Start 12/17/18 at 21:00 Acetaminophen (Tylenol Tab) 650 mg Q6H PRN PO PAIN LEVEL 1-3 OR FEVER Last administered on 12/21/18 05:01; Admin Dose 650 MG; Start 12/17/18 at 15:00 Albuterol/ Ipratropium (Duoneb) 3 ml Q6H RESP THERAPY PRN HHN sob Last administered on 12/19/18 03:51; Admin Dose 3 ML; Start 12/17/18 at 09:00 Docusate Sodium (Colace) 100 mg Q12H PRN PO CONSTIPATION Last administered on 12/21/18 05:01; Admin Dose 100 MG; Start 12/17/18 at 21:00 Ferrous Sulfate (Feosol Liquid Cup) 300 mg BID GTB Last administered on 12/26/18 22:09; Admin Dose 300 MG; Start 12/17/18 at 21:00 Guaifenesin/ Dextromethorphan (Robitussin Dm Liquid Cup) 5 ml Q4H PRN PO cough Last administered on 12/24/18 21:16; Admin Dose 5 ML; Start 12/17/18 at 18:00 Linagliptin (Tradjenta) 5 mg DAILY GTB Last administered on 12/26/18 09:52; Admin Dose 5 MG; Start 12/17/18 at 09:00 Folic Acid (Folic Acid) 1 mg DAILY GTB Last administered on 12/26/18 09:52; Admin Dose 1 MG; Start 12/18/18 at 09:00 Metoclopramide HCl (Reglan) 5 mg Q8 PRN IV VOMITTING; Start 12/20/18 at 10:00 IV Flush (NS 10 ml) 10 ml AFTER DIALYSIS CATHETER ; Start 12/22/18 at 10:00 Voriconazole (Vfend) 200 mg BID PO Last administered on 12/26/18 22:10; Admin Dose 200 MG; Start 12/22/18 at 11:00 Magnesium Hydroxide (Milk Of Mag) 30 ml DAILY PRN PO CONSTIPATION; Start 12/22/18 at 17:00 Sodium Chloride (NS) -To prime the dialy... DIRECTED FOR HD PRN IV HD; Start 12/23/18 at 16:00 Metoclopramide HCl (Reglan) 5 mg Q6 IV Last administered on 2/18/19at 05:57; Admin Dose 5 MG; Start 12/24/18 at 12:00 Amlodipine Besylate (Norvasc) 5 mg DAILY GTB Last administered on 12/26/18at 09:59; Admin Dose 5 MG; Start 12/25/18 at 15:30 Miscellaneous Information (*Order Clarification Bulletin) APAP SUPPOSITORY WILL EXPI... Q8H XX ; Start 12/26/18 at 09:00 Miscellaneous Information (*Order Clarification Bulletin) MEDICATION REQUIRES CLARIFICATI... Q8H XX ; Start 12/26/18 at 09:30 TONY VENCES Dec 27, 2018 08:00
[2018-12-27] MEDS: POLYETHYLENE GLYCOL 17 GM PACKET GTB SCH (08:57)
[2018-12-27] MEDS: DOCUSATE SODIUM 10 MG/ML (10ML CUP) GTB SCH (09:03)
[2018-12-27] MEDS: FERROUS SULFATE 60 MG/ML 5ML CUP GTB SCH ×2 (09:03→21:30)
[2018-12-27] MEDS: SENNA TAB PO SCH ×2 (09:04→21:30)
[2018-12-27] MEDS: VORICONAZOLE 200 MG TAB PO SCH ×2 (09:04→21:30)
[2018-12-27] MEDS: LANSOPRAZOLE 30 MG CAP GTB SCH (09:04)
[2018-12-27] MEDS: AMLODIPINE 5 MG TAB GTB SCH (09:04)
[2018-12-27] MEDS: MULTIVIT/CA CARB/B CMPLX/FA TAB GTB SCH (09:04)
[2018-12-27] MEDS: ASPIRIN (EC) 81 MG TAB PO SCH (09:04)
[2018-12-27] MEDS: FOLIC ACID 1 MG TAB GTB SCH (09:04)
[2018-12-27] MEDS: LINAGLIPTIN 5 MG TABLET GTB SCH (09:04)
[2018-12-27] MEDS: METOPROLOL 50 MG TAB GTB SCH ×2 (09:05→21:31)
--- NOTE | 2018-12-27 13:46 | CONS ---
Assessment/Plan Assessment/Plan Hospital Course (Demo Recall) 83 y/o with Hospital Course (Demo Recall) 1. End-stage renal disease on hemodialysis. 2. Gastrointestinal bleed with melena.resolved 3. Hypertension. 4. Diabetes. 5. Right hand swelling, s/p I and D on 11/17/18 6. History of falls. 7. Vascular dementia. 8. History of sepsis with VRE. 9. Dysphagia, status post G-tube. 10. History of hip fracture. 11. Thrombocytopenia. 12. Atherosclerotic heart disease. 13. Pneumonia left side 14. Anemia 15 YEAST BACTERIMIA LIKELY DUE TO UTI 16 Paroxsymal AFib now in sinus Assessment/Plan (Daily) - Hd MWF, Hd today - cw with permacath -avoid nephrotoxic drugs -HD MWFr -c/w epogen - Aspiration precautions Consultation Date/Type/Reason Admit Date/Time Nov 16, 2018 at 05:51 Initial Consult Date 11/16/18 Requesting Provider: DYLON WALLS MD Date/Time of Note DATE: 12/27/18 TIME: 13:46 24 HR Interval Summary Free Text/Dictation Pt is awake and alert, Hd today Exam/Review of Systems Exam Vitals Vital Signs Date Temp Pulse Resp B/P (MAP) Pulse Ox O2 O2 Flow FiO2 Time Delivery Rate 12/27/18 Nasal 2.0 08:00 Cannula 12/27/18 97.9 71 16 138/51 99 07:20 (80) Exam Respiratory: clear to auscultation Cardiovascular: regular rate and rhythm Gastrointestinal: soft, bowel sounds Musculoskeletal: nl extremities to inspection permacath Results Result Diagram: 12/27/18 0510 12/27/18 0510 Results 24hrs Laboratory Tests Test 12/27/18 05:10 12/27/18 08:56 White Blood Count 7.0 Red Blood Count 3.01 L Hemoglobin 7.9 L Hematocrit 25.5 L Mean Corpuscular Volume 84.7 Mean Corpuscular Hemoglobin 26.2 L Mean Corpuscular Hemoglobin Concent 31.0 L Red Cell Distribution Width 16.8 H Platelet Count 202 Mean Platelet Volume 12.3 H Immature Granulocytes % 1.100 H Neutrophils % 62.0 Lymphocytes % 14.6 L Monocytes % 13.9 H Eosinophils % 8.0 H Basophils % 0.4 Nucleated Red Blood Cells % 1.0 H Immature Granulocytes # 0.080 H Neutrophils # 4.3 Lymphocytes # 1.0 Monocytes # 1.0 H Eosinophils # 0.6 H Basophils # 0.0 Nucleated Red Blood Cells # 0.1 H Sodium Level 137 Potassium Level 3.7 Chloride Level 97 Carbon Dioxide Level 32 H Anion Gap 8 Blood Urea Nitrogen 94 H Creatinine 2.66 H Est Glomerular Filtrat Rate mL/min Glucose Level 147 Calcium Level 8.9 Phosphorus Level 5.6 H Magnesium Level 3.0 H Bedside Glucose 197 Medications Medication Current Medications IV Flush (NS 3 ml) 3 ml PER PROTOCOL IV ; Start 11/16/18 at 09:00 Ondansetron HCl (Zofran Inj) 4 mg Q6H PRN IV NAUSEA AND/OR VOMITING Last administered on 12/19/18 05:53; Admin Dose 4 MG; Start 11/16/18 at 09:00 Hydralazine HCl (Apresoline) 10 mg Q4H PRN IV ELEVATED BLOOD PRESSURE Last administered on 12/22/18 19:40; Admin Dose 10 MG; Start 11/17/18 at 10:30 Acetaminophen/ Hydrocodone Bitart ([place] (5/325)) 1 tab Q3H PRN PO MODERATE PAIN LEVEL 4-6 Last administered on 12/26/18 22:10; Admin Dose 1 TAB; Start at 14:30 Albumin Human 50 ml @ 100 mls/hr WITH DIALYSIS PRN IV SBP<90 Last administered on 12/13/18 11:03; Admin Dose 100 MLS/HR; Start 11/18/18 at 14:30 Morphine Sulfate (morphine) 6 mg Q4H PRN PO SEVERE PAIN LEVEL 7-10 Last administered on 12/13/18 21:31; Admin Dose 6 MG; Start 11/18/18 at 23:00 Docusate Sodium (Colace Liquid Cup) 100 mg DAILY GTB Last administered on 12/27/18 09:03; Admin Dose 100 MG; Start 11/19/18 at 09:30 Multivit/Ca Carb/ B Cmplx/FA/Prenat ([place]ian[place]-Roque) 1 tab DAILY GTB Last administered on 12/27/18 09:04; Admin Dose 1 TAB; Start 11/24/18 at 09:00 Lansoprazole (Prevacid) 30 mg DAILY GTB Last administered on 12/27/18 09:04; Admin Dose 30 MG; Start 11/26/18 at 09:00 Acetaminophen (Tylenol Supp) 650 mg Q4H PRN [place] MILD PAIN(1-3) OR TEMP>38C Last administered on 11/26/18 08:32; Admin Dose 650 MG; Start 11/26/18 at 08:30 Epoetin Michael (Epogen (Esrd)) 4,000 units MoWeFr@17 SC Last administered on 12/24/18 17:12; Admin Dose 4,000 UNITS; Start 12/06/18 at 17:00 Hydralazine HCl (Apresoline) 50 mg Q8 PO Last administered on 12/27/18 05:57; Admin Dose 50 MG; Start 12/07/18 at 22:00 Metoprolol Tartrate (Lopressor) 100 mg BID GTB Last administered on 12/27/18 09:05; Admin Dose 100 MG; Start 12/13/18 at 21:00 Aspirin (Halfprin) 81 mg DAILY PO Last administered on 12/27/18 09:04; Admin Dose 81 MG; Start 12/13/18 at 19:30 Senna (Senokot) 1 tab BID PO Last administered on 12/27/18 09:04; Admin Dose 1 TAB; Start 12/17/18 at 21:00 Acetaminophen (Tylenol Tab) 650 mg Q6H PRN PO PAIN LEVEL 1-3 OR FEVER Last administered on 12/21/18 05:01; Admin Dose 650 MG; Start 12/17/18 at 15:00 Albuterol/ Ipratropium (Duoneb) 3 ml Q6H RESP THERAPY PRN HHN sob Last administered on 12/19/18 03:51; Admin Dose 3 ML; Start 12/17/18 at 09:00 Docusate Sodium (Colace) 100 mg Q12H PRN PO CONSTIPATION Last administered on 12/21/18 05:01; Admin Dose 100 MG; Start 12/17/18 at 21:00 Ferrous Sulfate (Feosol Liquid Cup) 300 mg BID GTB Last administered on 12/27/18 09:03; Admin Dose 300 MG; Start 12/17/18 at 21:00 Guaifenesin/ Dextromethorphan (Robitussin Dm Liquid Cup) 5 ml Q4H PRN PO cough Last administered on 12/24/18 21:16; Admin Dose 5 ML; Start 12/17/18 at 18:00 Linagliptin (Tradjenta) 5 mg DAILY GTB Last administered on 12/27/18 09:04; Admin Dose 5 MG; Start 12/17/18 at 09:00 Folic Acid (Folic Acid) 1 mg DAILY GTB Last administered on 12/27/18 09:04; A dmin Dose 1 MG; Start 12/18/18 at 09:00 Metoclopramide HCl (Reglan) 5 mg Q8 PRN IV VOMITTING; Start 12/20/18 at 10:00 IV Flush (NS 10 ml) 10 ml AFTER DIALYSIS CATHETER ; Start 12/22/18 at 10:00 Voriconazole (Vfend) 200 mg BID PO Last administered on 12/27/18 09:04; Admin Dose 200 MG; Start 12/22/18 at 11:00 Magnesium Hydroxide (Milk Of Mag) 30 ml DAILY PRN PO CONSTIPATION; Start 12/22/18 at 17:00 Sodium Chloride (NS) -To prime the dialy... DIRECTED FOR HD PRN IV HD; Start 12/23/18 at 16:00 Metoclopramide HCl (Reglan) 5 mg Q6 IV Last administered on 12/27/18 12:10; Admin Dose 5 MG; Start 12/24/18 at 12:00 Amlodipine Besylate (Norvasc) 5 mg DAILY GTB Last administered on 12/27/18 09 :04; Admin Dose 5 MG; Start 12/25/18 at 15:30 Miscellaneous Information (*Order Clarification Bulletin) APAP SUPPOSITORY WILL EXPI... Q8H XX ; Start 12/26/18 at 09:00 Miscellaneous Information (*Order Clarification Bulletin) MEDICATION REQUIRES CLARIFICATI... Q8H XX ; Start 12/26/18 at 09:30 Polyethylene Glycol (Miralax) 17 gm DAILY GTB Last administered on 12/27/18at 08:57; Admin Dose 17 GM; Start 12/27/18 at 09:00 JOSE RAUL ANDREWS MD Dec 27, 2018 13:46
--- NOTE | 2018-12-27 17:02 | CONS ---
Assessment/Plan Assessment/Plan Hospital Course (Demo Recall) ID PROGRESS NOTE CURRENT ABX: DAY #=> VFEND s/p Merrem # + Cancidas 24H INTERVAL SUMMARY * Clinically status quo -- no new issues/no new events -- DC planning in process -- pending placement * Patient in bed -- resting with eyes closed, she awakens easily, VSS, NAD, without dyspnea on room air * Indwelling: Left chest PermCath, PEG MICRO * 12/20/18 URINE Cx (+) Glabrata URINE CULTURE Final Organism 1 TYREE GLABRATA COLONY COUNT 30,000 - 40,000 CFU/ml * 12/20/18 BCx (-) * 12/18/18 BCx (-) * 12/06/18 URINE Cx (+) Glabrata * 12/03/18 BCx (-) * 12/01/18 BCx (-) * 11/29/18 BCx (+) Glabrata * 11/24/18 BCX (+) Glabrata = fungemia PHYSICAL EXAMINATION: GENERAL: Afebrile, VSS, HEENT: AT, NC, anicteric NECK: Supple, trach CHEST: Equal chest rise bilaterally, without dyspnea on observation HEART: Pulse RRR ABDOMEN: Soft / NT EXTREMITIES: Warm, dry - Right hand w/edema and ecchymosis; no open skin seen - SKIN: No rash, no diaphoresis ID ASSESSMENT 83 yo F w/ DEMENTIA admit with: 1. FUNGEMIA == secondary to GLABRATA UTI 2. Status post VRE bacteremia, status post new Pcath 3. End-stage renal disease, hemodialysis dependent 4. Health care Acquired PNA -- ?ASP PNA? 5. Right hand hematoma, status post I&D 11/17/18 6. Diabetes 7. Anemia 8. Failure to thrive (-)MRSA Nares ABX ALLERGIES: KNDA INVASIVES: PIV, Left chest PermCath CURRENT ABX: DAY #=> VFEND s/p Merrem # + Cancidas ID RECOMMENDATIONS/PLAN: Continue on Vfend==>May DC on VFEND to complete 14 days for recurrent Glabrata UTI when cleared by primary . Consultation Date/Type/Reason Admit Date/Time Nov 16, 2018 at 05:51 Initial Consult Date 11/16/18 Requesting Provider: DYLON WALLS MD Date/Time of Note DATE: 12/27/18 TIME: 17:01 Exam/Review of Systems Exam Vitals Vital Signs Date Temp Pulse Resp B/P (MAP) Pulse Ox O2 O2 Flow FiO2 Time Delivery Rate 12/27/18 97.9 69 16 134/55 100 14:00 (81) 12/27/18 Nasal 2.0 08:00 Cannula Results Result Diagram: 12/27/18 0510 12/27/18 0510 Results 24hrs Laboratory Tests Test 12/27/18 05:10 12/27/18 08:56 White Blood Count 7.0 Red Blood Count 3.01 L Hemoglobin 7.9 L Hematocrit 25.5 L Mean Corpuscular Volume 84.7 Mean Corpuscular Hemoglobin 26.2 L Mean Corpuscular Hemoglobin Concent 31.0 L Red Cell Distribution Width 16.8 H Platelet Count 202 Mean Platelet Volume 12.3 H Immature Granulocytes % 1.100 H Neutrophils % 62.0 Lymphocytes % 14.6 L Monocytes % 13.9 H Eosinophils % 8.0 H Basophils % 0.4 Nucleated Red Blood Cells % 1.0 H Immature Granulocytes # 0.080 H Neutrophils # 4.3 Lymphocytes # 1.0 Monocytes # 1.0 H Eosinophils # 0.6 H Basophils # 0.0 Nucleated Red Blood Cells # 0.1 H Sodium Level 137 Potassium Level 3.7 Chloride Level 97 Carbon Dioxide Level 32 H Anion Gap 8 Blood Urea Nitrogen 94 H Creatinine 2.66 H Est Glomerular Filtrat Rate mL/min Glucose Level 147 Calcium Level 8.9 Phosphorus Level 5.6 H Magnesium Level 3.0 H Bedside Glucose 197 Medications Medication Current Medications IV Flush (NS 3 ml) 3 ml PER PROTOCOL IV ; Start 11/16/18 at 09:00 Ondansetron HCl (Zofran Inj) 4 mg Q6H PRN IV NAUSEA AND/OR VOMITING Last administered on 12/19/18at 05:53; Admin Dose 4 MG; Start 11/16/18 at 09:00 Hydralazine HCl (Apresoline) 10 mg Q4H PRN IV ELEVATED BLOOD PRESSURE Last administered on 12/22/18at 19:40; Admin Dose 10 MG; Start 11/17/18 at 10:30 Acetaminophen/ Hydrocodone Bitart ([place] (5/325)) 1 tab Q3H PRN PO MODERATE PAIN LEVEL 4-6 Last administered on 12/26/18at 22:10; Admin Dose 1 TAB; Start 11/17/18 at 14:30 Albumin Human 50 ml @ 100 mls/hr WITH DIALYSIS PRN IV SBP<90 Last administered on 12/13/18 11:03; Admin Dose 100 MLS/HR; Start 11/18/18 at 14:30 Morphine Sulfate (morphine) 6 mg Q4H PRN PO SEVERE PAIN LEVEL 7-10 Last administered on 12/13/18 21:31; Admin Dose 6 MG; Start 11/18/18 at 23:00 Docusate Sodium (Colace Liquid Cup) 100 mg DAILY GTB Last administered on 12/27/18 09:03; Admin Dose 100 MG; Start 11/19/18 at 09:30 Multivit/Ca Carb/ B Cmplx/FA/Prenat ([place]ian[place]-Roque) 1 tab DAILY GTB Last administered on 12/27/18 09:04; Admin Dose 1 TAB; Start 11/24/18 at 09:00 Lansoprazole (Prevacid) 30 mg DAILY GTB Last administered on 12/27/18 09:04; Admin Dose 30 MG; Start 11/26/18 at 09:00 Acetaminophen (Tylenol Supp) 650 mg Q4H PRN [place] MILD PAIN(1-3) OR TEMP>38C Last administered on 11/26/18 08:32; Admin Dose 650 MG; Start 11/26/18 at 08:30 Epoetin Michael (Epogen (Esrd)) 4,000 units MoWeFr@17 SC Last administered on 12/24/18 17:12; Admin Dose 4,000 UNITS; Start 12/06/18 at 17:00 Hydralazine HCl (Apresoline) 50 mg Q8 PO Last administered on 12/27/18 05:57; Admin Dose 50 MG; Start 12/07/18 at 22:00 Metoprolol Tartrate (Lopressor) 100 mg BID GTB Last administered on 12/27/18 09:05; Admin Dose 100 MG; Start 12/13/18 at 21:00 Aspirin (Halfprin) 81 mg DAILY PO Last administered on 12/27/18 09:04; Admin Dose 81 MG; Start 12/13/18 at 19:30 Senna (Senokot) 1 tab BID PO Last administered on 12/27/18 09:04; Admin Dose 1 TAB; Start 12/17/18 at 21:00 Acetaminophen (Tylenol Tab) 650 mg Q6H PRN PO PAIN LEVEL 1-3 OR FEVER Last administered on 12/21/18 05:01; Admin Dose 650 MG; Start 12/17/18 at 15:00 Albuterol/ Ipratropium (Duoneb) 3 ml Q6H RESP THERAPY PRN HHN sob Last administered on 12/19/18 03:51; Admin Dose 3 ML; Start 12/17/18 at 09:00 Docusate Sodium (Colace) 100 mg Q12H PRN PO CONSTIPATION Last administered on 12/21/18 05:01; Admin Dose 100 MG; Start 12/17/18 at 21:00 Ferrous Sulfate (Feosol Liquid Cup) 300 mg BID GTB Last administered on 12/27/18 09:03; Admin Dose 300 MG; Start 12/17/18 at 21:00 Guaifenesin/ Dextromethorphan (Robitussin Dm Liquid Cup) 5 ml Q4H PRN PO cough Last administered on 12/24/18 21:16; Admin Dose 5 ML; Start 12/17/18 at 18:00 Linagliptin (Tradjenta) 5 mg DAILY GTB Last administered on 12/27/18 09:04; Admin Dose 5 MG; Start 12/17/18 at 09:00 Folic Acid (Folic Acid) 1 mg DAILY GTB Last administered on 12/27/18 09:04; Admin Dose 1 MG; Start 12/18/18 at 09:00 Metoclopramide HCl (Reglan) 5 mg Q8 PRN IV VOMITTING; Start 12/20/18 at 10:00 IV Flush (NS 10 ml) 10 ml AFTER DIALYSIS CATHETER ; Start 12/22/18 at 10:00 Voriconazole (Vfend) 200 mg BID PO Last administered on 12/27/18 09:04; Admin Dose 200 MG; Start 12/22/18 at 11:00 Magnesium Hydroxide (Milk Of Mag) 30 ml DAILY PRN PO CONSTIPATION; Start 12/22/18 at 17:00 Sodium Chloride (NS) -To prime the dialy... DIRECTED FOR HD PRN IV HD; Start 12/23/18 at 16:00 Amlodipine Besylate (Norvasc) 5 mg DAILY GTB Last administered on 12/27/18at 09:04; Admin Dose 5 MG; Start 12/25/18 at 15:30 Polyethylene Glycol (Miralax) 17 gm DAILY GTB Last administered on 12/27/18at 08:57; Admin Dose 17 GM; Start 12/27/18 at 09:00 Metoclopramide HCl (Reglan) 5 mg Q8 IV ; Start 12/27/18 at 22:00 SEVERO GARCIA NP Dec 27, 2018 17:02
--- NOTE | 2018-12-27 18:43 | PN ---
DATE: 12/27/2018 SUBJECTIVE: The patient seen, currently being dialyzed. PHYSICAL EXAMINATION: GENERAL: Overall, alert, appears to be comfortable. VITAL SIGNS: Temperature 97.9, pulse 60, respiration 16, blood pressure 134/55, saturation 100%. HEENT: Normocephalic, atraumatic. CARDIOVASCULAR: S1, S2, regular rate. LUNGS: Clear. ABDOMEN: Soft. G-tube in place. EXTREMITIES: No clubbing, cyanosis, or edema. LABORATORY DATA: White count is 7, hemoglobin 7.9, hematocrit 26, platelet count of 202 with normal differential. Lymphocyte count slightly low at 15%. Sodium 137, potassium 3.7, chloride 97, bicarbo rayray 32, BUN is 24, creatinine 2.66, glucose of 147. Last glucose of 196. MEDICATIONS: All reviewed include: 1. MiraLax. 2. Norvasc. 3. Reglan. 4. Milk of magnesia. 5. Vfend. 6. Folic acid. 7. Senna. 8. Colace. 9. ____. 10. Robitussin. 11. Tylenol. 12. DuoNeb. 13. Tradjenta. 14. Lopressor. 15. Aspirin. 16. Hydralazine. 17. Epogen. 18. Prevacid. 19. Kianna-Roque. 20. Morphine. 21. [place]. 22. Zofran. ASSESSMENT AND PLAN: This is an 83-year-old [place] female with end-stage renal disease, advanced d ementia, ASCVD, COPD, status post evacuation of right hand hematoma, line sepsis bacteremia, fungemia , UTI. 1. Respiratory. O2 support, oxygenating well. Continue aspiration precaution, n.p.o. status. 2. Cardiovascular. Blood pressure is better controlled with above. 3. Anemia. Continue Epogen. Currently, no need for transfusion. 4. End-stage renal disease. Currently, being dialyzed every Thursday, Thursday and Thursday. 5. Diabetes mellitus. Glucose levels remained in the 100s. Continue Tradjenta and insulin sliding scale. 6. Urinary tract infection on Vfend. 7. Dysphagia. Continue G-tube feeding with aspiration precautions. Reglan is being provided. Redu ce the dose. 8. Placement at the residential facility once ____ the face. Case discussed with nursing staff to discuss with family. We will follow. Dictated By: DYLON HULL/MADAN Conf#: [id number] DID#: [id number]
[2018-12-27] MEDS: EPOETIN 4000 UNITS/1 ML INJ (ESRD) SC SCH (19:03)
--- NOTE | 2018-12-27 19:09 | CONS ---
Consult Date/Type/Reason Admit Date/Time Nov 16, 2018 at 05:51 Initial Consult Date 11/16/18 Type of Consultation: cv Requesting Provider: DYLON WALLS MD Date/Time of Note DATE: 12/27/18 TIME: 19:09 Subjective Cardiology follow up note Sl DW/ Staff and telemetry was reviewed. Patient is off tele now pt continues to be confused but calm at the moment no report of any chest pain or pressure or palpitations but pt is a very poor historian Events noted. 12/13/18: Patient went into atrial fibrillation rapid ventricular response during hemodialysis . Patient has been transferred to telemetry and converted back to sinus rhythm remains in sinus rhythm s/p I/D 11/17 EGD 11.18.18 O: General: Elderly frail female in no acute distress HEENT: NC/AT. Eyes are closed NECK: NO JVD. no stridor. CV: RRR. systolic murmur; no gallop or rubs. PULM: no wheezing or rhonchi. GI: SOFT, NT, ND, no rebound or guarding neuro: awake Psych: calm now rectal: deferred Objective Vitals Vital Signs Date Temp Pulse Resp B/P (MAP) Pulse Ox O2 O2 Flow FiO2 Time Delivery Rate 12/27/18 97.9 69 16 134/55 100 14:00 (81) 12/27/18 Nasal 2.0 08:00 Cannula Results/Medications Result Diagram: 12/27/18 0510 12/27/18 0510 Results 24 hrs Laboratory Tests Test 12/27/18 05:10 12/27/18 08:56 White Blood Count 7.0 Red Blood Count 3.01 L Hemoglobin 7.9 L Hematocrit 25.5 L Mean Corpuscular Volume 84.7 Mean Corpuscular Hemoglobin 26.2 L Mean Corpuscular Hemoglobin Concent 31.0 L Red Cell Distribution Width 16.8 H Platelet Count 202 Mean Platelet Volume 12.3 H Immature Granulocytes % 1.100 H Neutrophils % 62.0 Lymphocytes % 14.6 L Monocytes % 13.9 H Eosinophils % 8.0 H Basophils % 0.4 Nucleated Red Blood Cells % 1.0 H Immature Granulocytes # 0.080 H Neutrophils # 4.3 Lymphocytes # 1.0 Monocytes # 1.0 H Eosinophils # 0.6 H Basophils # 0.0 Nucleated Red Blood Cells # 0.1 H Sodium Level 137 Potassium Level 3.7 Chloride Level 97 Carbon Dioxide Level 32 H Anion Gap 8 Blood Urea Nitrogen 94 H Creatinine 2.66 H Est Glomerular Filtrat Rate mL/min Glucose Level 147 Calcium Level 8.9 Phosphorus Level 5.6 H Magnesium Level 3.0 H Bedside Glucose 197 Home Meds Reported Medications Sennosides* (Senna Lax*) 8.6 Mg Tablet, 1 TAB PO BID, TAB 11/16/18 Sevelamer Carbonate* (Renvela*) 0.8 Gm Powd.pack, 0.8 GM PO WITH MEALS, PACKET 11/16/18 Lansoprazole* (Lansoprazole*) 30 Mg Capsule.dr, 30 MG PO QAM, CAP 11/16/18 Hydralazine Hcl* (Hydralazine Hcl*) 25 Mg Tab, 25 MG PO Q8, #90 TAB 11/16/18 Ferrous Sulfate* (Ferrous Sulfate*) 325 Mg Tabec, 325 MG PO BID for anemia, TAB 11/16/18 Valproate Sodium (Valproic Acid) 250 Mg/5 Ml Solution, 250 MG PO Q8, ML 11/16/18 Insulin Aspart* (Novolog Insulin Pen*) 100 Unit/Ml Soln, 0 SC .SLIDING SCALE AC, EA IF BS 160-200=2 UNITS,201-250=4 UNITS,251-300=8 UNITS,301-350=12 UNITS;351-400=16 UNITS THEN CALL MD. 10/16/18 Ondansetron Hcl* (Zofran*) 4 Mg Tab, 4 MG GTB Q4H PRN for NAUSEA AND OR VOMITING, TAB 10/16/18 Linagliptin (TRADJENTA) 5 Mg Tablet, 5 MG GTB DAILY, TAB 10/16/18 Quetiapine Fumarate* (Seroquel*) 25 Mg Tablet, 25 MG GTB BID, #60 TAB 10/16/18 [Nephro-Roque] No Conflict Check, 0.8 MG GTB DAILY 10/16/18 Polyethylene Glycol* (Miralax*) 17 Gm Powd.pack, 17 GM GTB Q24H, #30 PACKET 10/16/18 Metoprolol Tartrate* (Lopressor*) 50 Mg Tab, 50 MG GTB DAILY, #60 TAB Q MON,WED,FRI,SUN,HOLD FOR SBP<110 OR NC<60 10/16/18 Metoprolol Tartrate* (Lopressor*) 50 Mg Tab, 50 MG GTB BID, #60 TAB QTUE,ANDREW,SAT,HOLD FOR SBP<110 OR NC<60 10/16/18 Linaclotide (LINZESS) 145 Mcg Capsule, 145 MCG GTB DAILY, #30 CAP 10/16/18 Ipratropium-Albuterol (Ipratropium-Albuterol) 0.5-3 Mg/3 Ml Ampul.neb, 3 ML INHALATION Q6, #30 VIAL FOR 14 DAYS,STOP DATE 10/17/18 10/16/18 Hydralazine Hcl* (Hydralazine Hcl*) 25 Mg Tab, 25 MG GTB DAILY, #60 TAB Q TUE,ANDREW,SAT,HOLD IF SBP<110 OR NC<60 10/16/18 Folic Acid* (Folic Acid*) 1 Mg Tablet, 1 MG GTB DAILY, TAB 10/16/18 Docusate Sodium* (Colace*) 100 Mg Capsule, 100 MG GTB DAILY, #30 CAP 10/16/18 Lorazepam* (Lorazepam*) 1 Mg Tablet, 1 MG GTB HS PRN for ANXIETY, #30 TAB Q TUE,ANDREW,SAT 10/16/18 Amlodipine Besylate* (Norvasc*) 5 Mg Tablet, 5 MG GTB BID, TAB TAKE Q TUE,ANDREW,SAT FOR HTN, HOLD FOR SBP<110 OR NC<60 10/16/18 Acetaminophen* (Acetaminophen*) 650 Mg Tablet, 650 MG GTB Q6H PRN for PAIN LEVEL 1-08/18, #30 TAB 10/16/18 Medications Current Medications IV Flush (NS 3 ml) 3 ml PER PROTOCOL IV ; Start 11/16/18 at 09:00 Ondansetron HCl (Zofran Inj) 4 mg Q6H PRN IV NAUSEA AND/OR VOMITING Last administered on 12/19/18at 05:53; Admin Dose 4 MG; Start 11/16/18 at 09:00 Hydralazine HCl (Apresoline) 10 mg Q4H PRN IV ELEVATED BLOOD PRESSURE Last administered on 12/22/18at 19:40; Admin Dose 10 MG; Start 11/17/18 at 10:30 Acetaminophen/ Hydrocodone Bitart ([place] (5/325)) 1 tab Q3H PRN PO MODERATE PAIN LEVEL 4-6 Last administered on 12/26/18 22:10; Admin Dose 1 TAB; Start 11/17/18 at 14:30 Albumin Human 50 ml @ 100 mls/hr WITH DIALYSIS PRN IV SBP<90 Last administered on 12/13/18 11:03; Admin Dose 100 MLS/HR; Start 11/18/18 at 14:30 Morphine Sulfate (morphine) 6 mg Q4H PRN PO SEVERE PAIN LEVEL 7-10 Last administered on 12/13/18 21:31; Admin Dose 6 MG; Start 11/18/18 at 23:00 Docusate Sodium (Colace Liquid Cup) 100 mg DAILY GTB Last administered on 12/27/18 09:03; Admin Dose 100 MG; Start 11/19/18 at 09:30 Multivit/Ca Carb/ B Cmplx/FA/Prenat (Kianna-Roque) 1 tab DAILY GTB Last administered on 12/27/18 09:04; Admin Dose 1 TAB; Start 11/24/18 at 09:00 Lansoprazole (Prevacid) 30 mg DAILY GTB Last administered on 12/27/18 09:04; Admin Dose 30 MG; Start 11/26/18 at 09:00 Acetaminophen (Tylenol Supp) 650 mg Q4H PRN [place] MILD PAIN(1-3) OR TEMP>38C Last administered on 11/26/18 08:32; Admin Dose 650 MG; Start 11/26/18 at 08:30 Epoetin Michael (Epogen (Esrd)) 4,000 units MoWeFr@17 SC Last administered on 12/27/18 19:03; Admin Dose 4,000 UNITS; Start 12/06/18 at 17:00 Hydralazine HCl (Apresoline) 50 mg Q8 PO Last administered on 12/27/18 05:57; Admin Dose 50 MG; Start 12/07/18 at 22:00 Metoprolol Tartrate (Lopressor) 100 mg BID GTB Last administered on 12/27/18 09:05; Admin Dose 100 MG; Start 12/13/18 at 21:00 Aspirin (Halfprin) 81 mg DAILY PO Last administered on 12/27/18 09:04; Admin Dose 81 MG; Start 12/13/18 at 19:30 Senna (Senokot) 1 tab BID PO Last administered on 12/27/18 09:04; Admin Dose 1 TAB; Start 12/17/18 at 21:00 Acetaminophen (Tylenol Tab) 650 mg Q6H PRN PO PAIN LEVEL 1-3 OR FEVER Last administered on 12/21/18 05:01; Admin Dose 650 MG; Start 12/17/18 at 15:00 Albuterol/ Ipratropium (Duoneb) 3 ml Q6H RESP THERAPY PRN HHN sob Last administered on 12/19/18 03:51; Admin Dose 3 ML; Start 12/17/18 at 09:00 Docusate Sodium (Colace) 100 mg Q12H PRN PO CONSTIPATION Last administered on 12/21/18 05:01; Admin Dose 100 MG; Start 12/17/18 at 21:00 Ferrous Sulfate (Feosol Liquid Cup) 300 mg BID GTB Last administered on 12/27/18 09:03; Admin Dose 300 MG; Start 12/17/18 at 21:00 Guaifenesin/ Dextromethorphan (Robitussin Dm Liquid Cup) 5 ml Q4H PRN PO cough Last administered on 12/24/18 21:16; Admin Dose 5 ML; Start 12/17/18 at 18:00 Linagliptin (Tradjenta) 5 mg DAILY GTB Last administered on 12/27/18 09:04; Admin Dose 5 MG; Start 12/17/18 at 09:00 Folic Acid (Folic Acid) 1 mg DAILY GTB Last administered on 12/27/18 09:04; Admin Dose 1 MG; Start 12/18/18 at 09:00 Metoclopramide HCl (Reglan) 5 mg Q8 PRN IV VOMITTING; Start 12/20/18 at 10:00 IV Flush (NS 10 ml) 10 ml AFTER DIALYSIS CATHETER ; Start 12/22/18 at 10:00 Voriconazole (Vfend) 200 mg BID PO Last administered on 12/27/18 09:04; Admin Dose 200 MG; Start 12/22/18 at 11:00 Magnesium Hydroxide (Milk Of Mag) 30 ml DAILY PRN PO CONSTIPATION; Start 12/22/18 at 17:00 Sodium Chloride (NS) -To prime the dialy... DIRECTED FOR HD PRN IV HD; Start 12/23/18 at 16:00 Amlodipine Besylate (Norvasc) 5 mg DAILY GTB Last administered on 12/27/18at 09:04; Admin Dose 5 MG; Start 12/25/18 at 15:30 Polyethylene Glycol (Miralax) 17 gm DAILY GTB Last administered on 12/27/18at 08:57; Admin Dose 17 GM; Start 12/27/18 at 09:00 Metoclopramide HCl (Reglan) 5 mg Q8 IV ; Start 12/27/18 at 22:00 Assessment/Plan Hospital Course (Demo Recall) P-atrial fibrillation rapid ventricular response: Currently back in sinus rhythm fungemia /fungal urinary tract infection Status post right hand hematoma: Status post I&D Renal failure on dialysis Hypertension Dementia Anemia Possible GI bleed: Status post EGD AI Recommendations: pt is not on full anticoagulation due to the fall risk as well as anemia cont beta-farrah Dialysis as per renal team Neuro workup and treatment as per internal medicine Antibiotic as per ID and internal medicine asa for now and monitor Thank you for his referral. We will continue to follow along with you as needed basis CHRISTEN ESCOBEDO MD MERGED WITH [facility] CHRISTEN ESCOBEDO MD Dec 27, 2018 19:09
[2018-12-28 02:00] VITALS: BP 150/70; PULSE 63; RESP 18
[2018-12-28] MEDS: morphine LIQ (10 MG/5 ML) CUP PO PRN (02:11)
[2018-12-28] MEDS: METOCLOPRAMIDE 10 MG INJ IV SCH ×3 (05:22→22:20)
[2018-12-28 07:40] VITALS: BP 135/53; PULSE 67; RESP 18
[2018-12-28] MEDS: LANSOPRAZOLE 30 MG CAP GTB SCH (09:37)
[2018-12-28] MEDS: LINAGLIPTIN 5 MG TABLET GTB SCH (09:37)
[2018-12-28] MEDS: AMLODIPINE 5 MG TAB GTB SCH (09:37)
[2018-12-28] MEDS: SENNA TAB PO SCH ×2 (09:37→20:51)
[2018-12-28] MEDS: VORICONAZOLE 200 MG TAB PO SCH ×2 (09:38→20:51)
[2018-12-28] MEDS: MULTIVIT/CA CARB/B CMPLX/FA TAB GTB SCH (09:38)
[2018-12-28] MEDS: METOPROLOL 50 MG TAB GTB SCH ×2 (09:38→20:53)
[2018-12-28] MEDS: FOLIC ACID 1 MG TAB GTB SCH (09:38)
[2018-12-28] MEDS: ASPIRIN (EC) 81 MG TAB PO SCH (09:38)
[2018-12-28] MEDS: DOCUSATE SODIUM 10 MG/ML (10ML CUP) GTB SCH (09:39)
[2018-12-28] MEDS: FERROUS SULFATE 60 MG/ML 5ML CUP GTB SCH ×2 (09:39→20:51)
[2018-12-28] MEDS: POLYETHYLENE GLYCOL 17 GM PACKET GTB SCH (09:39)
--- NOTE | 2018-12-28 10:46 | CONS ---
Assessment/Plan Assessment/Plan Hospital Course (Demo Recall) 83 yo female in ESRD on HD presents for melena and anemia and also found to have edematous Rt hand/wrist 1. UGIB manifested through melena and anemia -no melena noted or GI bleeding noted by nursing staff -RESOLVED 2. Anemia, acute on chronic, acute likely due to blood loss in rt hand -No evidence of active GI bleeding, consider etiology of blood loss anemia to be from hematoma in hand -Fe wnl, TIBC low, Ferritin, folate, b12 high, FOB neg -STABLE 3. ESRD on HD -Followed by nephrology 4. Hematoma of Rt hand and wrist -I and D drainage by Dr. Dean 11/17 -IMPROVED 5. Dysphagia -on tube feeds and pureed nectar for oral gratification 6. DM2 7. HTN 8. H/O diastolic dysfunction heart failure 9. S/P EGD 11/18 10. Moderate gastritis with no bleeding noted. 11. Hospital acquired pneumonia -improved 12. Yeast in urine cx -cx 12/20 12. Emesis -pt had another episode of emesis this am of just her medications after they were given. Residuals were 15cc prior to giving medications. The emesis contained only the medications no tube feeds. Gastric biopsy results: Stomach, biopsy: -- Antral and oxyntic mucosa showing minimal plasma cell infiltration and small focus of intestinal metaplasia. -- No Helicobacter pylori is identified in Giemsa stain (positive control concurrently reviewed). -- No evidence of dysplasia or malignancy. Plan: Consider GJ tube Give medications in small doses Reglan 5 mg prior to meals, low dose to due ESRD Continue present care Monitor HH closely and for active GI bleeding, Pt examined and plan of care discussed with Dr. Baird Consultation Date/Type/Reason Admit Date/Time Nov 16, 2018 at 05:51 Initial Consult Date 11/16/18 Requesting Provider: DYLON WALLS MD Date/Time of Note DATE: 12/28/18 TIME: 10:43 24 HR Interval Summary Free Text/Dictation Vomited her medication this morning. Emesis was the medications no tube feeds. Residuals prior to giving medications was 15 cc. Had a bm this morning. Exam/Review of Systems Exam Vitals Vital Signs Date Temp Pulse Resp B/P (MAP) Pulse Ox O2 O2 Flow FiO2 Time Delivery Rate 12/28/18 97.6 67 18 135/53 100 07:40 (80) 12/27/18 Room Air 18:35 12/27/18 2.0 08:00 Intake and Output 12/27/18 12/27/18 12/28/18 1515:00 23:00 07:00 IntakeIntake Total 440 ml OutputOutput Total 2200 ml BalanceBalance -1760 ml Constitutional: alert Head: normocephalic Respiratory: clear to auscultation, diminished breath sounds Cardiovascular: regular rate and rhythm Gastrointestinal: soft, non-tender 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: confused Results Result Diagram: 12/27/18 0510 12/27/18 0510 Results 24hrs Laboratory Tests Test 12/28/18 09:48 Bedside Glucose 212 Medications Medication Current Medications IV Flush (NS 3 ml) 3 ml PER PROTOCOL IV ; Start 11/16/18 at 09:00 Ondansetron HCl (Zofran Inj) 4 mg Q6H PRN IV NAUSEA AND/OR VOMITING Last administered on 12/19/18at 05:53; Admin Dose 4 MG; Start 11/16/18 at 09:00 Hydralazine HCl (Apresoline) 10 mg Q4H PRN IV ELEVATED BLOOD PRESSURE Last administered on 12/22/18 19:40; Admin Dose 10 MG; Start 11/17/18 at 10:30 Acetaminophen/ Hydrocodone Bitart ([place] (5/325)) 1 tab Q3H PRN PO MODERATE PAIN LEVEL 4-6 Last administered on 12/26/18at 22:10; Admin Dose 1 TAB; Start 11/17/18 at 14:30 Albumin Human 50 ml @ 100 mls/hr WITH DIALYSIS PRN IV SBP<90 Last administered on 12/13/18at 11:03; Admin Dose 100 MLS/HR; Start 11/18/18 at 14:30 Morphine Sulfate (morphine) 6 mg Q4H PRN PO SEVERE PAIN LEVEL 7-10 Last administered on 12/28/18 02:11; Admin Dose 6 MG; Start 11/18/18 at 23:00 Docusate Sodium (Colace Liquid Cup) 100 mg DAILY GTB Last administered on 12/28/18at 09:39; Admin Dose 100 MG; Start 11/19/18 at 09:30 Multivit/Ca Carb/ B Cmplx/FA/Prenat (Kianna-Roque) 1 tab DAILY GTB Last administered on 12/28/18 09:38; Admin Dose 1 TAB; Start 11/24/18 at 09:00 Lansoprazole (Prevacid) 30 mg DAILY GTB Last administered on 12/28/18 09:37; Admin Dose 30 MG; Start 11/26/18 at 09:00 Acetaminophen (Tylenol Supp) 650 mg Q4H PRN [place] MILD PAIN(1-3) OR TEMP>38C Last administered on 11/26/18 08:32; Admin Dose 650 MG; Start 11/26/18 at 08:30 Epoetin Michael (Epogen (Esrd)) 4,000 units MoWeFr@17 SC Last administered on 12/27/18 19:03; Admin Dose 4,000 UNITS; Start 12/06/18 at 17:00 Hydralazine HCl (Apresoline) 50 mg Q8 PO Last administered on 12/28/18 05:23; Admin Dose 50 MG; Start 12/07/18 at 22:00 Metoprolol Tartrate (Lopressor) 100 mg BID GTB Last administered on 12/28/18 09:38; Admin Dose 100 MG; Start 12/13/18 at 21:00 Aspirin (Halfprin) 81 mg DAILY PO Last administered on 12/28/18 09:38; Admin Dose 81 MG; Start 12/13/18 at 19:30 Senna (Senokot) 1 tab BID PO Last administered on 12/28/18 09:37; Admin Dose 1 TAB; Start 12/17/18 at 21:00 Acetaminophen (Tylenol Tab) 650 mg Q6H PRN PO PAIN LEVEL 1-3 OR FEVER Last administered on 12/21/18 05:01; Admin Dose 650 MG; Start 12/17/18 at 15:00 Albuterol/ Ipratropium (Duoneb) 3 ml Q6H RESP THERAPY PRN HHN sob Last administered on 12/19/18 03:51; Admin Dose 3 ML; Start 12/17/18 at 09:00 Docusate Sodium (Colace) 100 mg Q12H PRN PO CONSTIPATION Last administered on 12/21/18 05:01; Admin Dose 100 MG; Start 12/17/18 at 21:00 Ferrous Sulfate (Feosol Liquid Cup) 300 mg BID GTB Last administered on 9at 09:39; Admin Dose 300 MG; Start 12/17/18 at 21:00 Guaifenesin/ Dextromethorphan (Robitussin Dm Liquid Cup) 5 ml Q4H PRN PO cough Last administered on 12/24/18 21:16; Admin Dose 5 ML; Start 12/17/18 at 18:00 Linagliptin (Tradjenta) 5 mg DAILY GTB Last administered on 12/28/18 09:37; Admin Dose 5 MG; Start 12/17/18 at 09:00 Folic Acid (Folic Acid) 1 mg DAILY GTB Last administered on 12/28/18 09:38; Admin Dose 1 MG; Start 12/18/18 at 09:00 Metoclopramide HCl (Reglan) 5 mg Q8 PRN IV VOMITTING; Start 12/20/18 at 10:00 IV Flush (NS 10 ml) 10 ml AFTER DIALYSIS CATHETER ; Start 12/22/18 at 10:00 Voriconazole (Vfend) 200 mg BID PO Last administered on 12/28/18 09:38; Admin Dose 200 MG; Start 12/22/18 at 11:00 Magnesium Hydroxide (Milk Of Mag) 30 ml DAILY PRN PO CONSTIPATION; Start at 17:00 Sodium Chloride (NS) -To prime the dialy... DIRECTED FOR HD PRN IV HD; Start 12/23/18 at 16:00 Amlodipine Besylate (Norvasc) 5 mg DAILY GTB Last administered on 12/28/18 09:37; Admin Dose 5 MG; Start 12/25/18 at 15:30 Polyethylene Glycol (Miralax) 17 gm DAILY GTB Last administered on 12/28/18 09:39; Admin Dose 17 GM; Start 12/27/18 at 09:00 Metoclopramide HCl (Reglan) 5 mg Q8 IV Last administered on 12/28/18 05:22; Admin Dose 5 MG; Start 12/27/18 at 22:00 TONY VENCES Dec 28, 2018 10:46
--- NOTE | 2018-12-28 11:27 | CONS ---
Consult Date/Type/Reason Admit Date/Time Nov 16, 2018 at 05:51 Initial Consult Date 11/16/18 Type of Consultation: cv Requesting Provider: DYLON WALLS MD Date/Time of Note DATE: 12/28/18 TIME: 11:27 Subjective Cardiology follow up note Sl DW/ Staff and telemetry was reviewed. Patient is off tele now pt continues to be confused but calm at the moment no report of any chest pain or pressure or palpitations but pt is a very poor historian Events noted. 12/13/18: Patient went into atrial fibrillation rapid ventricular response during hemodialysis . Patient has been transferred to telemetry and converted back to sinus rhythm remains in sinus rhythm s/p I/D 11/17 EGD 11.18.18 O: General: Elderly frail female in no acute distress HEENT: NC/AT. Eyes are closed NECK: NO JVD. no stridor. CV: RRR. systolic murmur; no gallop or rubs. PULM: no wheezing or rhonchi. GI: SOFT, NT, ND, no rebound or guarding neuro: awake Psych: calm now rectal: deferred Objective Vitals Vital Signs Date Temp Pulse Resp B/P (MAP) Pulse Ox O2 O2 Flow FiO2 Time Delivery Rate 12/28/18 97.6 67 18 135/53 100 07:40 (80) 12/27/18 Room Air 18:35 12/27/18 2.0 08:00 Intake and Output 12/27/18 12/27/18 12/28/18 1515:00 23:00 07:00 IntakeIntake Total 440 ml OutputOutput Total 2200 ml BalanceBalance -1760 ml Results/Medications Result Diagram: 12/27/18 0510 12/27/18 0510 Results 24 hrs Laboratory Tests Test 12/28/18 09:48 Bedside Glucose 212 Home Meds Reported Medications Sennosides* (Senna Lax*) 8.6 Mg Tablet, 1 TAB PO BID, TAB 11/16/18 Sevelamer Carbonate* (Renvela*) 0.8 Gm Powd.pack, 0.8 GM PO WITH MEALS, PACKET 11/16/18 Lansoprazole* (Lansoprazole*) 30 Mg Capsule.dr, 30 MG PO QAM, CAP 11/16/18 Hydralazine Hcl* (Hydralazine Hcl*) 25 Mg Tab, 25 MG PO Q8, #90 TAB 11/16/18 Ferrous Sulfate* (Ferrous Sulfate*) 325 Mg Tabec, 325 MG PO BID for anemia, TAB 11/16/18 Valproate Sodium (Valproic Acid) 250 Mg/5 Ml Solution, 250 MG PO Q8, ML 11/16/18 Insulin Aspart* (Novolog Insulin Pen*) 100 Unit/Ml Soln, 0 SC .SLIDING SCALE AC, EA IF BS 160-200=2 UNITS,201-250=4 UNITS,251-300=8 UNITS,301-350=12 UNITS;351-400=16 UNITS THEN CALL MD. 10/16/18 Ondansetron Hcl* (Zofran*) 4 Mg Tab, 4 MG GTB Q4H PRN for NAUSEA AND OR VOMITING, TAB 10/16/18 Linagliptin (TRADJENTA) 5 Mg Tablet, 5 MG GTB DAILY, TAB 10/16/18 Quetiapine Fumarate* (Seroquel*) 25 Mg Tablet, 25 MG GTB BID, #60 TAB 10/16/18 [Nephro-Roque] No Conflict Check, 0.8 MG GTB DAILY 10/16/18 Polyethylene Glycol* (Miralax*) 17 Gm Powd.pack, 17 GM GTB Q24H, #30 PACKET 10/16/18 Metoprolol Tartrate* (Lopressor*) 50 Mg Tab, 50 MG GTB DAILY, #60 TAB Q MON,WED,FRI,SUN,HOLD FOR SBP<110 OR NV<60 10/16/18 Metoprolol Tartrate* (Lopressor*) 50 Mg Tab, 50 MG GTB BID, #60 TAB QTUE,ANDREW,SAT,HOLD FOR SBP<110 OR NV<60 10/16/18 Linaclotide (LINZESS) 145 Mcg Capsule, 145 MCG GTB DAILY, #30 CAP 10/16/18 Ipratropium-Albuterol (Ipratropium-Albuterol) 0.5-3 Mg/3 Ml Ampul.neb, 3 ML INHALATION Q6, #30 VIAL FOR 14 DAYS,STOP DATE 10/17/18 10/16/18 Hydralazine Hcl* (Hydralazine Hcl*) 25 Mg Tab, 25 MG GTB DAILY, #60 TAB Q TUE,ANDREW,SAT,HOLD IF SBP<110 OR NV<60 10/16/18 Folic Acid* (Folic Acid*) 1 Mg Tablet, 1 MG GTB DAILY, TAB 10/16/18 Docusate Sodium* (Colace*) 100 Mg Capsule, 100 MG GTB DAILY, #30 CAP 10/16/18 Lorazepam* (Lorazepam*) 1 Mg Tablet, 1 MG GTB HS PRN for ANXIETY, #30 TAB Q TUE,ANDREW,SAT 10/16/18 Amlodipine Besylate* (Norvasc*) 5 Mg Tablet, 5 MG GTB BID, TAB TAKE Q TUE,ANDREW,SAT FOR HTN, HOLD FOR SBP<110 OR NV<60 10/16/18 Acetaminophen* (Acetaminophen*) 650 Mg Tablet, 650 MG GTB Q6H PRN for PAIN LEVEL 1-08/18, #30 TAB 10/16/18 Medications Current Medications IV Flush (NS 3 ml) 3 ml PER PROTOCOL IV ; Start 11/16/18 at 09:00 Ondansetron HCl (Zofran Inj) 4 mg Q6H PRN IV NAUSEA AND/OR VOMITING Last administered on 12/19/18at 05:53; Admin Dose 4 MG; Start 11/16/18 at 09:00 Hydralazine HCl (Apresoline) 10 mg Q4H PRN IV ELEVATED BLOOD PRESSURE Last administered on 12/22/18at 19:40; Admin Dose 10 MG; Start 11/17/18 at 10:30 Acetaminophen/ Hydrocodone Bitart ([place] (5/325)) 1 tab Q3H PRN PO MODERATE PAIN LEVEL 4-6 Last administered on 12/26/18at 22:10; Admin Dose 1 TAB; Start 11/17/18 at 14:30 Albumin Human 50 ml @ 100 mls/hr WITH DIALYSIS PRN IV SBP<90 Last administered on 12/13/18at 11:03; Admin Dose 100 MLS/HR; Start 11/18/18 at 14:30 Morphine Sulfate (morphine) 6 mg Q4H PRN PO SEVERE PAIN LEVEL 7-10 Last administered on 12/28/18at 02:11; Admin Dose 6 MG; Start 11/18/18 at 23:00 Docusate Sodium (Colace Liquid Cup) 100 mg DAILY GTB Last administered on 12/28/18at 09:39; Admin Dose 100 MG; Start 11/19/18 at 09:30 Multivit/Ca Carb/ B Cmplx/FA/Prenat (Kianna-Roque) 1 tab DAILY GTB Last administered on 12/28/18 09:38; Admin Dose 1 TAB; Start 11/24/18 at 09:00 Lansoprazole (Prevacid) 30 mg DAILY GTB Last administered on 12/28/18 09:37; Admin Dose 30 MG; Start 11/26/18 at 09:00 Acetaminophen (Tylenol Supp) 650 mg Q4H PRN [place] MILD PAIN(1-3) OR TEMP>38C Last administered on 11/26/18 08:32; Admin Dose 650 MG; Start 11/26/18 at 08:30 Epoetin Michael (Epogen (Esrd)) 4,000 units MoWeFr@17 SC Last administered on 12/27/18 19:03; Admin Dose 4,000 UNITS; Start 12/06/18 at 17:00 Hydralazine HCl (Apresoline) 50 mg Q8 PO Last administered on 12/28/18 05:23; Admin Dose 50 MG; Start 12/07/18 at 22:00 Metoprolol Tartrate (Lopressor) 100 mg BID GTB Last administered on 12/28/18 09:38; Admin Dose 100 MG; Start 12/13/18 at 21:00 Aspirin (Halfprin) 81 mg DAILY PO Last administered on 12/28/18 09:38; Admin Dose 81 MG; Start 12/13/18 at 19:30 Senna (Senokot) 1 tab BID PO Last administered on 12/28/18 09:37; Admin Dose 1 TAB; Start 12/17/18 at 21:00 Acetaminophen (Tylenol Tab) 650 mg Q6H PRN PO PAIN LEVEL 1-3 OR FEVER Last a dministered on 12/21/18 05:01; Admin Dose 650 MG; Start 12/17/18 at 15:00 Albuterol/ Ipratropium (Duoneb) 3 ml Q6H RESP THERAPY PRN HHN sob Last administered on 12/19/18 03:51; Admin Dose 3 ML; Start 12/17/18 at 09:00 Docusate Sodium (Colace) 100 mg Q12H PRN PO CONSTIPATION Last administered on 12/21/18 05:01; Admin Dose 100 MG; Start 12/17/18 at 21:00 Ferrous Sulfate (Feosol Liquid Cup) 300 mg BID GTB Last administered on 12/28/18 09:39; Admin Dose 300 MG; Start 12/17/18 at 21:00 Guaifenesin/ Dextromethorphan (Robitussin Dm Liquid Cup) 5 ml Q4H PRN PO cough Last administered on 12/24/18 21:16; Admin Dose 5 ML; Start 12/17/18 at 18:00 Linagliptin (Tradjenta) 5 mg DAILY GTB Last administered on 12/28/18 09:37; Admin Dose 5 MG; Start 12/17/18 at 09:00 Folic Acid (Folic Acid) 1 mg DAILY GTB Last administered on 12/28/18 09:38; Admin Dose 1 MG; Start 12/18/18 at 09:00 Metoclopramide HCl (Reglan) 5 mg Q8 PRN IV VOMITTING; Start 12/20/18 at 10:00 IV Flush (NS 10 ml) 10 ml AFTER DIALYSIS CATHETER ; Start 12/22/18 at 10:00 Voriconazole (Vfend) 200 mg BID PO Last administered on 12/28/18 09:38; Admin Dose 200 MG; Start 12/22/18 at 11:00 Magnesium Hydroxide (Milk Of Mag) 30 ml DAILY PRN PO CONSTIPATION; Start 12/22/18 at 17:00 Sodium Chloride (NS) -To prime the dialy... DIRECTED FOR HD PRN IV HD; Start 12/23/18 at 16:00 Amlodipine Besylate (Norvasc) 5 mg DAILY GTB Last administered on 12/28/18 09:37; Admin Dose 5 MG; Start 12/25/18 at 15:30 Polyethylene Glycol (Miralax) 17 gm DAILY GTB Last administered on 12/28/18 09:39; Admin Dose 17 GM; Start 12/27/18 at 09:00 Metoclopramide HCl (Reglan) 5 mg Q8 IV Last administered on 12/28/18 05:22; Admin Dose 5 MG; Start 12/27/18 at 22:00 Assessment/Plan Hospital Course (Demo Recall) P-atrial fibrillation rapid ventricular response: Currently back in sinus rhythm fungemia /fungal urinary tract infection Status post right hand hematoma: Status post I&D Renal failure on dialysis Hypertension Dementia Anemia Possible GI bleed: Status post EGD AI Recommendations: pt is not on full anticoagulation due to the fall risk as well as anemia cont beta-farrah Dialysis as per renal team Neuro workup and treatment as per internal medicine Antibiotic as per ID and internal medicine asa for now and monitor Thank you for his referral. We will continue to follow along with you as needed basis CHRISTEN ESCOBEDO MD [facility] CHRISTEN ESCOBEDO MD Dec 28, 2018 11:27
[2018-12-28 14:25] VITALS: BP 138/52; PULSE 62; RESP 18
--- NOTE | 2018-12-28 16:32 | CONS ---
Assessment/Plan Assessment/Plan Hospital Course (Demo Recall) ID PROGRESS NOTE CURRENT ABX: DAY #=> VFEND s/p Merrem # + Cancidas 24H INTERVAL SUMMARY * Frail 83 yo F, awake, smiling, edentulous, pleasantly confused, VSS, NAD, without dyspnea on room air * DC planning in process -- pending placement -- no new events * Indwelling: Left chest PermCath, PEG MICRO * 12/20/18 URINE Cx (+) Glabrata URINE CULTURE Final Organism 1 TYREE GLABRATA COLONY COUNT 30,000 - 40,000 CFU/ml * 12/20/18 BCx (-) * 12/18/18 BCx (-) * 12/06/18 URINE Cx (+) Glabrata * 12/03/18 BCx (-) * 12/01/18 BCx (-) * 11/29/18 BCx (+) Glabrata * 11/24/18 BCX (+) Glabrata = fungemia PHYSICAL EXAMINATION: GENERAL: Afebrile, VSS, HEENT: AT, NC, anicteric NECK: Supple, trach CHEST: Equal chest rise bilaterally, without dyspnea on observation HEART: Pulse RRR ABDOMEN: Soft / NT EXTREMITIES: Warm, dry - Right hand w/edema and ecchymosis; no open skin seen - SKIN: No rash, no diaphoresis ID ASSESSMENT 83 yo F w/ DEMENTIA admit with: 1. FUNGEMIA == secondary to GLABRATA UTI 2. Status post VRE bacteremia, status post new Pcath 3. End-stage renal disease, hemodialysis dependent 4. Health care Acquired PNA -- ?ASP PNA? 5. Right hand hematoma, status post I&D 11/17/18 6. Diabetes 7. Anemia 8. Failure to thrive (-)MRSA Nares ABX ALLERGIES: KNDA INVASIVES: PIV, Left chest PermCath CURRENT ABX: DAY #=> VFEND s/p Merrem # + Cancidas ID RECOMMENDATIONS/PLAN: Continue on Vfend==>May DC on VFEND to complete 14 days for recurrent Glabrata UTI when cleared by primary . Consultation Date/Type/Reason Admit Date/Time Nov 16, 2018 at 05:51 Initial Consult Date 11/16/18 Requesting Provider: DYLON WALLS MD Date/Time of Note DATE: 12/28/18 TIME: 16:31 Exam/Review of Systems Exam Vitals Vital Signs Date Temp Pulse Resp B/P (MAP) Pulse Ox O2 O2 Flow FiO2 Time Delivery Rate 12/28/18 97.5 62 18 138/52 99 14:25 (80) 12/27/18 Room Air 18:35 12/27/18 2.0 08:00 Intake and Output 12/27/18 12/27/18 12/28/18 1515:00 23:00 07:00 IntakeIntake Total 440 ml OutputOutput Total 2200 ml BalanceBalance -1760 ml Results Result Diagram: 12/27/18 0510 12/27/18 0510 Results 24hrs Laboratory Tests Test 12/28/18 09:48 Bedside Glucose 212 Medications Medication Current Medications IV Flush (NS 3 ml) 3 ml PER PROTOCOL IV ; Start 11/16/18 at 09:00 Ondansetron HCl (Zofran Inj) 4 mg Q6H PRN IV NAUSEA AND/OR VOMITING Last administered on 12/19/18 05:53; Admin Dose 4 MG; Start 11/16/18 at 09:00 Hydralazine HCl (Apresoline) 10 mg Q4H PRN IV ELEVATED BLOOD PRESSURE Last administered on 12/22/18at 19:40; Admin Dose 10 MG; Start 11/17/18 at 10:30 Acetaminophen/ Hydrocodone Bitart ([place] (5/325)) 1 tab Q3H PRN PO MODERATE PAIN LEVEL 4-6 Last administered on 12/26/18at 22:10; Admin Dose 1 TAB; Start 11/17/18 at 14:30 Albumin Human 50 ml @ 100 mls/hr WITH DIALYSIS PRN IV SBP<90 Last administered on 12/13/18at 11:03; Admin Dose 100 MLS/HR; Start 11/18/18 at 14:30 Morphine Sulfate (morphine) 6 mg Q4H PRN PO SEVERE PAIN LEVEL 7-10 Last administered on 12/28/18 02:11; Admin Dose 6 MG; Start 11/18/18 at 23:00 Docusate Sodium (Colace Liquid Cup) 100 mg DAILY GTB Last administered on 12/28/18 09:39; Admin Dose 100 MG; Start 11/19/18 at 09:30 Multivit/Ca Carb/ B Cmplx/FA/Prenat (Kianna-Roque) 1 tab DAILY GTB Last administered on 12/28/18 09:38; Admin Dose 1 TAB; Start 11/24/18 at 09:00 Lansoprazole (Prevacid) 30 mg DAILY GTB Last administered on 12/28/18 09:37; Admin Dose 30 MG; Start 11/26/18 at 09:00 Acetaminophen (Tylenol Supp) 650 mg Q4H PRN [place] MILD PAIN(1-3) OR TEMP>38C Last administered on 11/26/18 08:32; Admin Dose 650 MG; Start 11/26/18 at 08:30 Epoetin Michael (Epogen (Esrd)) 4,000 units MoWeFr@17 SC Last administered on 12/27/18 19:03; Admin Dose 4,000 UNITS; Start 12/06/18 at 17:00 Hydralazine HCl (Apresoline) 50 mg Q8 PO Last administered on 12/28/18 15:18; Admin Dose 50 MG; Start 12/07/18 at 22:00 Metoprolol Tartrate (Lopressor) 100 mg BID GTB Last administered on 12/28/18 09:38; Admin Dose 100 MG; Start 12/13/18 at 21:00 Aspirin (Halfprin) 81 mg DAILY PO Last administered on 12/28/18 09:38; Admin Dose 81 MG; Start 12/13/18 at 19:30 Senna (Senokot) 1 tab BID PO Last administered on 12/28/18 09:37; Admin Dose 1 TAB; Start 12/17/18 at 21:00 Acetaminophen (Tylenol Tab) 650 mg Q6H PRN PO PAIN LEVEL 1-3 OR FEVER Last administered on 12/21/18 05:01; Admin Dose 650 MG; Start 12/17/18 at 15:00 Albuterol/ Ipratropium (Duoneb) 3 ml Q6H RESP THERAPY PRN HHN sob Last administered on 12/19/18 03:51; Admin Dose 3 ML; Start 12/17/18 at 09:00 Docusate Sodium (Colace) 100 mg Q12H PRN PO CONSTIPATION Last administered on 12/21/18 05:01; Admin Dose 100 MG; Start 12/17/18 at 21:00 Ferrous Sulfate (Feosol Liquid Cup) 300 mg BID GTB Last administered on 12/28/18 09:39; Admin Dose 300 MG; Start 12/17/18 at 21:00 Guaifenesin/ Dextromethorphan (Robitussin Dm Liquid Cup) 5 ml Q4H PRN PO cough Last administered on 12/24/18 21:16; Admin Dose 5 ML; Start 12/17/18 at 18:00 Linagliptin (Tradjenta) 5 mg DAILY GTB Last administered on 12/28/18 09:37; Admin Dose 5 MG; Start 12/17/18 at 09:00 Folic Acid (Folic Acid) 1 mg DAILY GTB Last administered on 12/28/18 09:38; Admin Dose 1 MG; Start 12/18/18 at 09:00 Metoclopramide HCl (Reglan) 5 mg Q8 PRN IV VOMITTING; Start 12/20/18 at 10:00 IV Flush (NS 10 ml) 10 ml AFTER DIALYSIS CATHETER ; Start 12/22/18 at 10:00 Voriconazole (Vfend) 200 mg BID PO Last administered on 12/28/18 09:38; Admin Dose 200 MG; Start 12/22/18 at 11:00 Magnesium Hydroxide (Milk Of Mag) 30 ml DAILY PRN PO CONSTIPATION; Start 12/22/18 at 17:00 Sodium Chloride (NS) -To prime the dialy... DIRECTED FOR HD PRN IV HD; Start 12/23/18 at 16:00 Amlodipine Besylate (Norvasc) 5 mg DAILY GTB Last administered on 12/28/18 09:37; Admin Dose 5 MG; Start 12/25/18 at 15:30 Polyethylene Glycol (Miralax) 17 gm DAILY GTB Last administered on 12/28/18 09:39; Admin Dose 17 GM; Start 12/27/18 at 09:00 Metoclopramide HCl (Reglan) 5 mg Q8 IV Last administered on 12/28/18 15:18; Admin Dose 5 MG; Start 12/27/18 at 22:00 SEVERO GARCIA NP Dec 28, 2018 16:32
--- NOTE | 2018-12-28 16:48 | CONS ---
Assessment/Plan Assessment/Plan Hospital Course (Demo Recall) 83 y/o with Hospital Course (Demo Recall) 1. End-stage renal disease on hemodialysis. 2. Gastrointestinal bleed with melena.resolved 3. Hypertension. 4. Diabetes. 5. Right hand swelling, s/p I and D on 11/17/18 6. History of falls. 7. Vascular dementia. 8. History of sepsis with VRE. 9. Dysphagia, status post G-tube. 10. History of hip fracture. 11. Thrombocytopenia. 12. Atherosclerotic heart disease. 13. Pneumonia left side 14. Anemia 15 YEAST BACTERIMIA LIKELY DUE TO UTI 16 Paroxsymal AFib now in sinus Assessment/Plan (Daily) - Hd MWF, Hd tmw - cw with permacath -avoid nephrotoxic drugs -HD MWFr -c/w epogen - Aspiration precautions Consultation Date/Type/Reason Admit Date/Time Nov 16, 2018 at 05:51 Initial Consult Date 11/16/18 Requesting Provider: DYLON WALLS MD Date/Time of Note DATE: 12/28/18 TIME: 16:47 24 HR Interval Summary Free Text/Dictation NO New events Exam/Review of Systems Exam Vitals Vital Signs Date Temp Pulse Resp B/P (MAP) Pulse Ox O2 O2 Flow FiO2 Time Delivery Rate 12/28/18 97.5 62 18 138/52 99 14:25 (80) 12/27/18 Room Air 18:35 12/27/18 2.0 08:00 Intake and Output 12/27/18 12/27/18 12/28/18 1515:00 23:00 07:00 IntakeIntake Total 440 ml OutputOutput Total 2200 ml BalanceBalance -1760 ml Exam Respiratory: clear to auscultation Cardiovascular: regular rate and rhythm Gastrointestinal: soft, bowel sounds Musculoskeletal: nl extremities to inspection permacath Results Result Diagram: 12/27/18 0510 12/27/18 0510 Results 24hrs Laboratory Tests Test 12/28/18 09:48 Bedside Glucose 212 Medications Medication Current Medications IV Flush (NS 3 ml) 3 ml PER PROTOCOL IV ; Start 11/16/18 at 09:00 Ondansetron HCl (Zofran Inj) 4 mg Q6H PRN IV NAUSEA AND/OR VOMITING Last administered on 12/19/18at 05:53; Admin Dose 4 MG; Start 11/16/18 at 09:00 Hydralazine HCl (Apresoline) 10 mg Q4H PRN IV ELEVATED BLOOD PRESSURE Last administered on 12/22/18 19:40; Admin Dose 10 MG; Start 11/17/18 at 10:30 Acetaminophen/ Hydrocodone Bitart ([place] (5/325)) 1 tab Q3H PRN PO MODERATE PAIN LEVEL 4-6 Last administered on 12/26/18 22:10; Admin Dose 1 TAB; Start 11/17/18 at 14:30 Albumin Human 50 ml @ 100 mls/hr WITH DIALYSIS PRN IV SBP<90 Last administered on 12/13/18 11:03; Admin Dose 100 MLS/HR; Start 11/18/18 at 14:30 Morphine Sulfate (morphine) 6 mg Q4H PRN PO SEVERE PAIN LEVEL 7-10 Last administered on 12/28/18 02:11; Admin Dose 6 MG; Start 11/18/18 at 23:00 Docusate Sodium (Colace Liquid Cup) 100 mg DAILY GTB Last administered on 12/28/18 09:39; Admin Dose 100 MG; Start 11/19/18 at 09:30 Multivit/Ca Carb/ B Cmplx/FA/Prenat (Kianna-Roque) 1 tab DAILY GTB Last administered on 12/28/18 09:38; Admin Dose 1 TAB; Start 11/24/18 at 09:00 Lansoprazole (Prevacid) 30 mg DAILY GTB Last administered on 12/28/18 09:37; Admin Dose 30 MG; Start 11/26/18 at 09:00 Acetaminophen (Tylenol Supp) 650 mg Q4H PRN [place] MILD PAIN(1-3) OR TEMP>38C Last administered on 11/26/18 08:32; Admin Dose 650 MG; Start 11/26/18 at 08:30 Epoetin Michael (Epogen (Esrd)) 4,000 units MoWeFr@17 SC Last administered on 12/27/18 19:03; Admin Dose 4,000 UNITS; Start 12/06/18 at 17:00 Hydralazine HCl (Apresoline) 50 mg Q8 PO Last administered on 12/28/18 15:18; Admin Dose 50 MG; Start 12/07/18 at 22:00 Metoprolol Tartrate (Lopressor) 100 mg BID GTB Last administered on 12/28/18 09:38; Admin Dose 100 MG; Start 12/13/18 at 21:00 Aspirin (Halfprin) 81 mg DAILY PO Last administered on 12/28/18 09:38; Admin Dose 81 MG; Start 12/13/18 at 19:30 Senna (Senokot) 1 tab BID PO Last administered on 12/28/18 09:37; Admin Dose 1 TAB; Start 12/17/18 at 21:00 Acetaminophen (Tylenol Tab) 650 mg Q6H PRN PO PAIN LEVEL 1-3 OR FEVER Last administered on 12/21/18 05:01; Admin Dose 650 MG; Start 12/17/18 at 15:00 Albuterol/ Ipratropium (Duoneb) 3 ml Q6H RESP THERAPY PRN HHN sob Last administered on 12/19/18 03:51; Admin Dose 3 ML; Start 12/17/18 at 09:00 Docusate Sodium (Colace) 100 mg Q12H PRN PO CONSTIPATION Last administered on 12/21/18 05:01; Admin Dose 100 MG; Start 12/17/18 at 21:00 Ferrous Sulfate (Feosol Liquid Cup) 300 mg BID GTB Last administered on 12/28/18 09:39; Admin Dose 300 MG; Start 12/17/18 at 21:00 Guaifenesin/ Dextromethorphan (Robitussin Dm Liquid Cup) 5 ml Q4H PRN PO cough Last administered on 12/24/18 21:16; Admin Dose 5 ML; Start 12/17/18 at 18:00 Linagliptin (Tradjenta) 5 mg DAILY GTB Last administered on 12/28/18 09:37; Admin Dose 5 MG; Start 12/17/18 at 09:00 Folic Acid (Folic Acid) 1 mg DAILY GTB Last administered on 12/28/18 09:38; Admin Dose 1 MG; Start 12/18/18 at 09:00 Metoclopramide HCl (Reglan) 5 mg Q8 PRN IV VOMITTING; Start 12/20/18 at 10:00 IV Flush (NS 10 ml) 10 ml AFTER DIALYSIS CATHETER ; Start 12/22/18 at 10:00 Voriconazole (Vfend) 200 mg BID PO Last administered on 12/28/18 09:38; Admin Dose 200 MG; Start 12/22/18 at 11:00 Magnesium Hydroxide (Milk Of Mag) 30 ml DAILY PRN PO CONSTIPATION; Start 12/22/18 at 17:00 Sodium Chloride (NS) -To prime the dialy... DIRECTED FOR HD PRN IV HD; Start 12/23/18 at 16:00 Amlodipine Besylate (Norvasc) 5 mg DAILY GTB Last administered on 12/28/18at 09:37; Admin Dose 5 MG; Start 12/25/18 at 15:30 Polyethylene Glycol (Miralax) 17 gm DAILY GTB Last administered on 12/28/18 09:39; Admin Dose 17 GM; Start 12/27/18 at 09:00 Metoclopramide HCl (Reglan) 5 mg Q8 IV Last administered on 12/28/18 15:18; Admin Dose 5 MG; Start 12/27/18 at 22:00 JOSE RAUL ANDREWS MD Dec 28, 2018 16:48
[2018-12-28] MEDS ORDERED: GLUCAGON 1 MG INJ IM PRN (19:00)
[2018-12-28] MEDS ORDERED: DEXTROSE 50% 50 ML SYRINGE IV PRN ×2 (19:00)
[2018-12-28] MEDS ORDERED: GLUCOSE GEL 15 GRAM TUBE PO PRN ×2 (19:00)
[2018-12-28] MEDS ORDERED: GLUCOSE GEL 15 GRAM TUBE BUCCAL PRN (19:00)
[2018-12-28 20:06] VITALS: BP 110/54; PULSE 68; RESP 20
[2018-12-28] MEDS: INSULIN GLARGINE [LANTus] (100 UNITS/ML) SYG SC SCH (20:50)
[2018-12-28 20:54] VITALS: BP 112/48; PULSE 67
--- NOTE | 2018-12-28 21:07 | PN ---
DATE: 12/28/2018 SUBJECTIVE: The patient was seen lying in bed comfortably, currently off sitter. The patient is com municating with me, appears to be stable, awaiting placement. PHYSICAL EXAMINATION: VITAL SIGNS: Temperature 97.5, pulse 62, respirations 18, blood pressure 138/52, saturation 99%. GENERAL: In no acute distress. HEENT: Normocephalic, atraumatic. Pale. CARDIOVASCULAR: S1 and S2, regular rate. LUNGS: Clear. ABDOMEN: Soft, nontender. G-tube in place. EXTREMITIES: No clubbing, cyanosis, or edema. LABORATORY DATA: White count is 7, hemoglobin is 7.9, hematocrit 26, platelet count of 202, neutroph ils 62%, lymphocytes is 15%; this was from yesterday. Labs from yesterday were reviewed. Last gluco se levels 212 and 197, slightly elevated. MEDICATIONS: The patient's medications were all reviewed as well includin. Reglan 5 mg IV q.8. 2. MiraLax 17 g daily. 3. Norvasc 5 mg daily. 4. Milk of magnesia, as directed. 5. Vfend 200 b.i.d. 6. Reglan p.r.n. 7. Folic acid as directed. 8. Senna. 9. Ferrous sulfate. 10. Robitussin. 11. DuoNeb. 12. Tradjenta. 13. Lopressor. 14. Aspirin. 15. Epogen. 16. Prevacid. 17. Tylenol. 18. Kianna-Roque. 19. Colace. 20. Morphine p.r.n. 21. [place] p.r.n. 22. Hydralazine p.r.n. 23. Zofran p.r.n. ASSESSMENT AND PLAN: This is an unfortunate 83-year-old [place] female with end-stage renal disease , advanced dementia, ASCVD, COPD, status post evacuation of right hand hematoma, status post line sep sis, bacteremia, fungemia, UTI, now doing better. 1. Respiratory. O2 support and aspiration precaution as needed. 2. Dysphagia, on G-tube feeding. Case was discussed with nursing staff to reduce the feeding from 4 0 mL an hour to 30 mL an hour. The patient also has a history of high residual and aspiration. 3. Cardiovascular. Blood pressure is better controlled. 4. Anemia. Continue Epogen. Monitor hemoglobin and hematocrit. 5. Diabetes mellitus. Titrate insulin up as needed. 6. Urinary tract infection, on Vfend. 7. Mood disorder. Mood appears to be stable. The patient appears to be calm off psych meds due to recent encephalopathy. 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 We will follow closely, medically stable. Dictated By: DYLON HULL/MADAN Conf#: [id number] DID#: [id number]
[2018-12-29] VITALS (19 sets, daily range): BP systolic 94–158; BP diastolic 42–80; PULSE 61–84; RESP 16–19
[2018-12-29] MEDS: morphine LIQ (10 MG/5 ML) CUP PO PRN (01:22)
[2018-12-29] MEDS: METOCLOPRAMIDE 10 MG INJ IV SCH ×3 (06:21→22:20)
[2018-12-29] MEDS: FERROUS SULFATE 60 MG/ML 5ML CUP GTB SCH ×2 (08:31→20:37)
[2018-12-29] MEDS: SENNA TAB PO SCH ×2 (08:32→20:37)
[2018-12-29] MEDS: LINAGLIPTIN 5 MG TABLET GTB SCH (08:32)
[2018-12-29] MEDS: LANSOPRAZOLE 30 MG CAP GTB SCH (08:32)
[2018-12-29] MEDS: VORICONAZOLE 200 MG TAB PO SCH ×2 (08:32→20:37)
[2018-12-29] MEDS: MULTIVIT/CA CARB/B CMPLX/FA TAB GTB SCH (08:32)
[2018-12-29] MEDS: DOCUSATE SODIUM 10 MG/ML (10ML CUP) GTB SCH (08:32)
[2018-12-29] MEDS: FOLIC ACID 1 MG TAB GTB SCH (08:32)
[2018-12-29] MEDS: ASPIRIN (EC) 81 MG TAB PO SCH (08:32)
[2018-12-29] MEDS: POLYETHYLENE GLYCOL 17 GM PACKET GTB SCH (08:34)
[2018-12-29] MEDS: AMLODIPINE 5 MG TAB GTB SCH (08:34)
[2018-12-29] MEDS: METOPROLOL 50 MG TAB GTB SCH ×2 (08:34→20:38)
--- NOTE | 2018-12-29 09:00 | CONS ---
Consult Date/Type/Reason Admit Date/Time Nov 16, 2018 at 05:51 Initial Consult Date 11/16/18 Type of Consultation: cv Requesting Provider: DYLON WALLS MD Date/Time of Note DATE: 12/29/18 TIME: 08:59 Subjective Cardiology follow up note Sl DW/ Staff and telemetry was reviewed. Patient is off tele now pt continues to be confused but calm and cooperative now no report of any chest pain or pressure or palpitations but pt is a very poor historian Events noted. 12/13/18: Patient went into atrial fibrillation rapid ventricular response during hemodialysis . Patient has been transferred to telemetry and converted back to sinus rhythm remains in sinus rhythm s/p I/D 11/17 EGD 11.18.18 O: General: Elderly frail female in no acute distress HEENT: NC/AT. Eyes are closed NECK: NO JVD. no stridor. CV: RRR. systolic murmur; no gallop or rubs. PULM: no wheezing or rhonchi. GI: SOFT, NT, ND, no rebound or guarding neuro: awake Psych: calm now rectal: deferred Objective Vitals Vital Signs Date Temp Pulse Resp B/P (MAP) Pulse Ox O2 O2 Flow FiO2 Time Delivery Rate 12/29/18 97.8 62 17 137/53 96 08:55 (81) 12/27/18 Room Air 18:35 12/27/18 2.0 08:00 Results/Medications Result Diagram: 12/27/18 0510 12/29/18 0530 Results 24 hrs Laboratory Tests Test 12/28/18 09:48 12/28/18 20:46 12/29/18 05:30 12/29/18 08:30 Bedside Glucose 212 166 160 Sodium Level 135 Potassium Level 4.2 Chloride Level 95 L Carbon Dioxide Level 33 H Anion Gap 7 Blood Urea Nitrogen 68 H Creatinine 2.06 H Est Glomerular Filtrat Rate mL/min Glucose Level 132 Calcium Level 9.0 Home Meds Reported Medications Sennosides* (Senna Lax*) 8.6 Mg Tablet, 1 TAB PO BID, TAB 11/16/18 Sevelamer Carbonate* (Renvela*) 0.8 Gm Powd.pack, 0.8 GM PO WITH MEALS, PACKET 11/16/18 Lansoprazole* (Lansoprazole*) 30 Mg Capsule., 30 MG PO QAFani CAP 11/16/18 Hydralazine Hcl* (Hydralazine Hcl*) 25 Mg Tab, 25 MG PO Q8, #90 TAB 11/16/18 Ferrous Sulfate* (Ferrous Sulfate*) 325 Mg Tabec, 325 MG PO BID for anemia, TAB 11/16/18 Valproate Sodium (Valproic Acid) 250 Mg/5 Ml Solution, 250 MG PO Q8, ML 11/16/18 Insulin Aspart* (Novolog Insulin Pen*) 100 Unit/Ml Soln, 0 SC .SLIDING SCALE AC, EA IF BS 160-200=2 UNITS,201-250=4 UNITS,251-300=8 UNITS,301-350=12 UNITS;351-400=16 UNITS THEN CALL MD. 10/16/18 Ondansetron Hcl* (Zofran*) 4 Mg Tab, 4 MG GTB Q4H PRN for NAUSEA AND OR VOMITING, TAB 10/16/18 Linagliptin (TRADJENTA) 5 Mg Tablet, 5 MG GTB DAILY, TAB 10/16/18 Quetiapine Fumarate* (Seroquel*) 25 Mg Tablet, 25 MG GTB BID, #60 TAB 10/16/18 [Nephro-Roque] No Conflict Check, 0.8 MG GTB DAILY 10/16/18 Polyethylene Glycol* (Miralax*) 17 Gm Powd.pack, 17 GM GTB Q24H, #30 PACKET 10/16/18 Metoprolol Tartrate* (Lopressor*) 50 Mg Tab, 50 MG GTB DAILY, #60 TAB Q MON,WED,FRI,SUN,HOLD FOR SBP<110 OR [place]<60 10/16/18 Metoprolol Tartrate* (Lopressor*) 50 Mg Tab, 50 MG GTB BID, #60 TAB QTUE,ANDREW,SAT,HOLD FOR SBP<110 OR [place]<60 10/16/18 Linaclotide (LINZESS) 145 Mcg Capsule, 145 MCG GTB DAILY, #30 CAP 10/16/18 Ipratropium-Albuterol (Ipratropium-Albuterol) 0.5-3 Mg/3 Ml Ampul.neb, 3 ML INHALATION Q6, #30 VIAL FOR 14 DAYS,STOP DATE 10/17/18 10/16/18 Hydralazine Hcl* (Hydralazine Hcl*) 25 Mg Tab, 25 MG GTB DAILY, #60 TAB Q TUE,ANDREW,SAT,HOLD IF SBP<110 OR [place]<60 10/16/18 Folic Acid* (Folic Acid*) 1 Mg Tablet, 1 MG GTB DAILY, TAB 10/16/18 Docusate Sodium* (Colace*) 100 Mg Capsule, 100 MG GTB DAILY, #30 CAP 10/16/18 Lorazepam* (Lorazepam*) 1 Mg Tablet, 1 MG GTB HS PRN for ANXIETY, #30 TAB Q TUE,ANDREW,SAT 10/16/18 Amlodipine Besylate* (Norvasc*) 5 Mg Tablet, 5 MG GTB BID, TAB TAKE Q TUE,ANDREW,SAT FOR HTN, HOLD FOR SBP<110 OR [place]<60 10/16/18 Acetaminophen* (Acetaminophen*) 650 Mg Tablet, 650 MG GTB Q6H PRN for PAIN LEVEL 1-08/18, #30 TAB 10/16/18 Medications Current Medications IV Flush (NS 3 ml) 3 ml PER PROTOCOL IV ; Start 11/16/18 at 09:00 Ondansetron HCl (Zofran Inj) 4 mg Q6H PRN IV NAUSEA AND/OR VOMITING Last administered on 12/19/18at 05:53; Admin Dose 4 MG; Start 11/16/18 at 09:00 Hydralazine HCl (Apresoline) 10 mg Q4H PRN IV ELEVATED BLOOD PRESSURE Last administered on 12/22/18at 19:40; Admin Dose 10 MG; Start 11/17/18 at 10:30 Acetaminophen/ Hydrocodone Bitart ([place] (5/325)) 1 tab Q3H PRN PO MODERATE PAIN LEVEL 4-6 Last administered on 12/26/18at 22:10; Admin Dose 1 TAB; Start 11/17/18 at 14:30 Albumin Human 50 ml @ 100 mls/hr WITH DIALYSIS PRN IV SBP<90 Last administered on 12/13/18at 11:03; Admin Dose 100 MLS/HR; Start 11/18/18 at 14:30 Morphine Sulfate (morphine) 6 mg Q4H PRN PO SEVERE PAIN LEVEL 7-10 Last administered on 12/29/18at 01:22; Admin Dose 6 MG; Start 11/18/18 at 23:00 Docusate Sodium (Colace Liquid Cup) 100 mg DAILY GTB Last administered on 12/29 08:32; Admin Dose 100 MG; Start 11/19/18 at 09:30 Multivit/Ca Carb/ B Cmplx/FA/Prenat (Kianna-Roque) 1 tab DAILY GTB Last administered on 12/29/18 08:32; Admin Dose 1 TAB; Start 11/24/18 at 09:00 Lansoprazole (Prevacid) 30 mg DAILY GTB Last administered on 12/29/18 08:32; Admin Dose 30 MG; Start 11/26/18 at 09:00 Acetaminophen (Tylenol Supp) 650 mg Q4H PRN [place] MILD PAIN(1-3) OR TEMP>38C Last administered on 11/26/18 08:32; Admin Dose 650 MG; Start 11/26/18 at 08:30 Epoetin Michael (Epogen (Esrd)) 4,000 units MoWeFr@17 SC Last administered on 12/27/18 19:03; Admin Dose 4,000 UNITS; Start 12/06/18 at 17:00 Hydralazine HCl (Apresoline) 50 mg Q8 PO Last administered on 12/29/18 06:21; Admin Dose 50 MG; Start 12/07/18 at 22:00 Metoprolol Tartrate (Lopressor) 100 mg BID GTB Last administered on 12/28/18 20:53; Admin Dose 100 MG; Start 12/13/18 at 21:00 Aspirin (Halfprin) 81 mg DAILY PO Last administered on 12/29/18 08:32; Admin Dose 81 MG; Start 12/13/18 at 19:30 Senna (Senokot) 1 tab BID PO Last administered on 12/29/18 08:32; Admin Dose 1 TAB; Start 12/17/18 at 21:00 Acetaminophen (Tylenol Tab) 650 mg Q6H PRN PO PAIN LEVEL 1-3 OR FEVER Last administered on 12/21/18 05:01; Admin Dose 650 MG; Start 12/17/18 at 15:00 Albuterol/ Ipratropium (Duoneb) 3 ml Q6H RESP THERAPY PRN HHN sob Last administered on 12/19/18 03:51; Admin Dose 3 ML; Start 12/17/18 at 09:00 Docusate Sodium (Colace) 100 mg Q12H PRN PO CONSTIPATION Last administered on 12/21/18 05:01; Admin Dose 100 MG; Start 12/17/18 at 21:00 Ferrous Sulfate (Feosol Liquid Cup) 300 mg BID GTB Last administered on 08:31; Admin Dose 300 MG; Start 12/17/18 at 21:00 Guaifenesin/ Dextromethorphan (Robitussin Dm Liquid Cup) 5 ml Q4H PRN PO cough Last administered on 12/24/18 21:16; Admin Dose 5 ML; Start 12/17/18 at 18:00 Linagliptin (Tradjenta) 5 mg DAILY GTB Last administered on 12/29/18 08:32; Admin Dose 5 MG; Start 12/17/18 at 09:00 Folic Acid (Folic Acid) 1 mg DAILY GTB Last administered on 12/29/18 08:32; Admin Dose 1 MG; Start 12/18/18 at 09:00 Metoclopramide HCl (Reglan) 5 mg Q8 PRN IV VOMITTING; Start 12/20/18 at 10:00 IV Flush (NS 10 ml) 10 ml AFTER DIALYSIS CATHETER ; Start 12/22/18 at 10:00 Voriconazole (Vfend) 200 mg BID PO Last administered on 12/29/18 08:32; Admin Dose 200 MG; Start 12/22/18 at 11:00 Magnesium Hydroxide (Milk Of Mag) 30 ml DAILY PRN PO CONSTIPATION; Start 12/22/18 at 17:00 Sodium Chloride (NS) -To prime the dialy... DIRECTED FOR HD PRN IV HD; Start 12/23/18 at 16:00 Amlodipine Besylate (Norvasc) 5 mg DAILY GTB Last administered on 12/29/18 08:34; Admin Dose 5 MG; Start 12/25/18 at 15:30 Polyethylene Glycol (Miralax) 17 gm DAILY GTB Last administered on 12/29/18 08:34; Admin Dose 17 GM; Start 12/27/18 at 09:00 Metoclopramide HCl (Reglan) 5 mg Q8 IV Last administered on 12/29/18 06:21; Admin Dose 5 MG; Start 12/27/18 at 22:00 Insulin Glargine (Lantus) 4 units DAILY@2000 SC Last administered on 12/28/18at 20:50; Admin Dose 4 UNITS; Start 12/28/18 at 20:00 Miscellaneous Information 1 ea NOTE XX ; Start 12/28/18 at 19:00 Glucose (Glutose) 15 gm Q15M PRN PO DECREASED GLUCOSE; Start 12/28/18 at 19:00 Glucose (Glutose) 22.5 gm Q15M PRN PO DECREASED GLUCOSE; Start 12/28/18 at 19:00 Dextrose (D50w Syringe) 25 ml Q15M PRN IV DECREASED GLUCOSE; Start 12/28/18 at 19:00 Dextrose (D50w Syringe) 50 ml Q15M PRN IV DECREASED GLUCOSE; Start 12/28/18 at 19:00 Glucagon (Glucagen) 1 mg Q15M PRN IM DECREASED GLUCOSE; Start 12/28/18 at 19:00 Glucose (Glutose) 15 gm Q15M PRN BUCCAL DECREASED GLUCOSE; Start 12/28/18 at 19:00 Assessment/Plan Hospital Course (Demo Recall) P-atrial fibrillation rapid ventricular response: Currently back in sinus rhythm fungemia /fungal urinary tract infection Status post right hand hematoma: Status post I&D Renal failure on dialysis Hypertension Dementia Anemia Possible GI bleed: Status post EGD AI Recommendations: pt is not on full anticoagulation due to the fall risk as well as anemia cont beta-farrah Dialysis as per renal team Neuro workup and treatment as per internal medicine Antibiotic as per ID and internal medicine asa for now and monitor Thank you for his referral. We will continue to follow along with you as needed basis CHRISTEN ESCOBEDO MD [facility] CHRISTEN ESCOBEDO MD Dec 29, 2018 09:00
--- NOTE | 2018-12-29 13:47 | CONS ---
Assessment/Plan Assessment/Plan Hospital Course (Demo Recall) ID PROGRESS NOTE CURRENT ABX: DAY #=> VFEND s/p Merrem # + Cancidas 24H INTERVAL SUMMARY * Currently in HD session -- she is awake, tolerating HD well, no fevers, VSS, without dyspnea on room air * DC planning in process -- pending placement -- no other new events * Indwelling: Left chest PermCath, PEG MICRO * 12/20/18 URINE Cx (+) Glabrata URINE CULTURE Final Organism 1 TYREE GLABRATA COLONY COUNT 30,000 - 40,000 CFU/ml * 12/20/18 BCx (-) * 12/18/18 BCx (-) * 12/06/18 URINE Cx (+) Glabrata * 12/03/18 BCx (-) * 12/01/18 BCx (-) * 11/29/18 BCx (+) Glabrata * 11/24/18 BCX (+) Glabrata = fungemia PHYSICAL EXAMINATION: GENERAL: Afebrile, VSS, HEENT: AT, NC, anicteric NECK: Supple, trach CHEST: Equal chest rise bilaterally, without dyspnea on observation HEART: Pulse RRR ABDOMEN: Soft / NT EXTREMITIES: Warm, dry SKIN: No rash, no diaphoresis ID ASSESSMENT 83 yo F w/ DEMENTIA admit with: 1. FUNGEMIA == secondary to GLABRATA UTI => RESOLVED 2. Status post VRE bacteremia, status post new Pcath => RESOLVED 3. End-stage renal disease, hemodialysis dependent 4. Health care Acquired PNA -- ?ASP PNA?=> RESOLVED 5. Right hand hematoma, status post I&D 11/17/18=> RESOLVED 6. Diabetes 7. Anemia 8. Failure to thrive - Frail cachectic w/dementia (-)MRSA Nares ABX ALLERGIES: KNDA INVASIVES: PIV, Left chest PermCath CURRENT ABX: DAY #=> VFEND s/p Merrem # + Cancidas ID RECOMMENDATIONS/PLAN: Continue on Vfend==>May DC on VFEND to complete 14 days for recurrent Glabrata UTI when cleared by primary . Consultation Date/Type/Reason Admit Date/Time Nov 16, 2018 at 05:51 Initial Consult Date 11/16/18 Requesting Provider: DYLON WALLS MD Date/Time of Note DATE: 12/29/18 TIME: 13:45 Exam/Review of Systems Exam Vitals Vital Signs Date Temp Pulse Resp B/P (MAP) Pulse Ox O2 O2 Flow FiO2 Time Delivery Rate 12/29/18 97.8 62 17 137/53 96 08:55 (81) 12/27/18 Room Air 18:35 12/27/18 2.0 08:00 Results Result Diagram: 12/27/18 0510 12/29/18 0530 Results 24hrs Laboratory Tests Test 12/28/18 20:46 12/29/18 05:30 12/29/18 08:30 Bedside Glucose 166 160 Sodium Level 135 Potassium Level 4.2 Chloride Level 95 L Carbon Dioxide Level 33 H Anion Gap 7 Blood Urea Nitrogen 68 H Creatinine 2.06 H Est Glomerular Filtrat Rate mL/min Glucose Level 132 Calcium Level 9.0 Medications Medication Current Medications IV Flush (NS 3 ml) 3 ml PER PROTOCOL IV ; Start 11/16/18 at 09:00 Ondansetron HCl (Zofran Inj) 4 mg Q6H PRN IV NAUSEA AND/OR VOMITING Last administered on 12/19/18 05:53; Admin Dose 4 MG; Start 11/16/18 at 09:00 Hydralazine HCl (Apresoline) 10 mg Q4H PRN IV ELEVATED BLOOD PRESSURE Last admi nistered on 12/22/18at 19:40; Admin Dose 10 MG; Start 11/17/18 at 10:30 Acetaminophen/ Hydrocodone Bitart ([place] (5/325)) 1 tab Q3H PRN PO MODERATE PAIN LEVEL 4-6 Last administered on 12/26/18 22:10; Admin Dose 1 TAB; Start 11/17/18 at 14:30 Albumin Human 50 ml @ 100 mls/hr WITH DIALYSIS PRN IV SBP<90 Last administered on 12/13/18 11:03; Admin Dose 100 MLS/HR; Start 11/18/18 at 14:30 Morphine Sulfate (morphine) 6 mg Q4H PRN PO SEVERE PAIN LEVEL 7-10 Last administered on 12/29/18 01:22; Admin Dose 6 MG; Start 11/18/18 at 23:00 Docusate Sodium (Colace Liquid Cup) 100 mg DAILY GTB Last administered on 12/29/18 08:32; Admin Dose 100 MG; Start 11/19/18 at 09:30 Multivit/Ca Carb/ B Cmplx/FA/Prenat (Kianna-Roque) 1 tab DAILY GTB Last administered on 12/29/18 08:32; Admin Dose 1 TAB; Start 11/24/18 at 09:00 Lansoprazole (Prevacid) 30 mg DAILY GTB Last administered on 12/29/18 08:32; Admin Dose 30 MG; Start 11/26/18 at 09:00 Acetaminophen (Tylenol Supp) 650 mg Q4H PRN [place] MILD PAIN(1-3) OR TEMP>38C Last administered on 11/26/18 08:32; Admin Dose 650 MG; Start 11/26/18 at 08:30 Epoetin Michael (Epogen (Esrd)) 4,000 units MoWeFr@17 SC Last administered on 12/27/18 19:03; Admin Dose 4,000 UNITS; Start 12/06/18 at 17:00 Hydralazine HCl (Apresoline) 50 mg Q8 PO Last administered on 12/29/18 06:21; Admin Dose 50 MG; Start 12/07/18 at 22:00 Metoprolol Tartrate (Lopressor) 100 mg BID GTB Last administered on 12/28/18 20:53; Admin Dose 100 MG; Start 12/13/18 at 21:00 Aspirin (Halfprin) 81 mg DAILY PO Last administered on 12/29/18 08:32; Admin Dose 81 MG; Start 12/13/18 at 19:30 Senna (Senokot) 1 tab BID PO Last administered on 12/29/18 08:32; Admin Dose 1 TAB; Start 12/17/18 at 21:00 Acetaminophen (Tylenol Tab) 650 mg Q6H PRN PO PAIN LEVEL 1-3 OR FEVER Last administered on 12/21/18 05:01; Admin Dose 650 MG; Start 12/17/18 at 15:00 Albuterol/ Ipratropium (Duoneb) 3 ml Q6H RESP THERAPY PRN HHN sob Last administered on 12/19/18 03:51; Admin Dose 3 ML; Start 12/17/18 at 09:00 Docusate Sodium (Colace) 100 mg Q12H PRN PO CONSTIPATION Last administered on 12/21/18 05:01; Admin Dose 100 MG; Start 12/17/18 at 21:00 Ferrous Sulfate (Feosol Liquid Cup) 300 mg BID GTB Last administered on 12/29/18 08:31; Admin Dose 300 MG; Start 12/17/18 at 21:00 Guaifenesin/ Dextromethorphan (Robitussin Dm Liquid Cup) 5 ml Q4H PRN PO cough Last administered on 12/24/18 21:16; Admin Dose 5 ML; Start 12/17/18 at 18:00 Linagliptin (Tradjenta) 5 mg DAILY GTB Last administered on 12/29/18 08:32; Admin Dose 5 MG; Start 12/17/18 at 09:00 Folic Acid (Folic Acid) 1 mg DAILY GTB Last administered on 12/29/18 08:32; Admin Dose 1 MG; Start 12/18/18 at 09:00 Metoclopramide HCl (Reglan) 5 mg Q8 PRN IV VOMITTING; Start 12/20/18 at 10:00 IV Flush (NS 10 ml) 10 ml AFTER DIALYSIS CATHETER ; Start 12/22/18 at 10:00 Voriconazole (Vfend) 200 mg BID PO Last administered on 12/29/18 08:32; Admin Dose 200 MG; Start 12/22/18 at 11:00 Magnesium Hydroxide (Milk Of Mag) 30 ml DAILY PRN PO CONSTIPATION; Start 12/22/18 at 17:00 Sodium Chloride (NS) -To prime the dialy... DIRECTED FOR HD PRN IV HD; Start 12/23/18 at 16:00 Amlodipine Besylate (Norvasc) 5 mg DAILY GTB Last administered on 12/29/18 08:34; Admin Dose 5 MG; Start 12/25/18 at 15:30 Polyethylene Glycol (Miralax) 17 gm DAILY GTB Last administered on 12/29/18 08:34; Admin Dose 17 GM; Start 12/27/18 at 09:00 Metoclopramide HCl (Reglan) 5 mg Q8 IV Last administered on 12/29/18 06:21; Admin Dose 5 MG; Start 12/27/18 at 22:00 Insulin Glargine (Lantus) 4 units DAILY@2000 SC Last administered on 12/28/18at 20:50; Admin Dose 4 UNITS; Start 12/28/18 at 20:00 Miscellaneous Information 1 ea NOTE XX ; Start 12/28/18 at 19:00 Glucose (Glutose) 15 gm Q15M PRN PO DECREASED GLUCOSE; Start 12/28/18 at 19:00 Glucose (Glutose) 22.5 gm Q15M PRN PO DECREASED GLUCOSE; Start 12/28/18 at 19:00 Dextrose (D50w Syringe) 25 ml Q15M PRN IV DECREASED GLUCOSE; Start 12/28/18 at 19:00 Dextrose (D50w Syringe) 50 ml Q15M PRN IV DECREASED GLUCOSE; Start 12/28/18 at 19:00 Glucagon (Glucagen) 1 mg Q15M PRN IM DECREASED GLUCOSE; Start 12/28/18 at 19:00 Glucose (Glutose) 15 gm Q15M PRN BUCCAL DECREASED GLUCOSE; Start 12/28/18 at 19:00 SEVERO GARCIA NP Dec 29, 2018 13:47
[2018-12-29] MEDS ORDERED: HEPARIN 1000 UNITS/ML 10 ML INJ CATHETER SCH (14:00)
--- NOTE | 2018-12-29 15:20 | CONS ---
Assessment/Plan Assessment/Plan Assessment/Plan (Daily) Hospital Course (Demo Recall) 83 yo female in ESRD on HD presents for melena and anemia and also found to have edematous Rt hand/wrist 1. UGIB manifested through melena and anemia -no melena noted or GI bleeding noted by nursing staff -RESOLVED 2. Anemia, acute on chronic, acute likely due to blood loss in rt hand -No evidence of active GI bleeding, consider etiology of blood loss anemia to be from hematoma in hand -Fe wnl, TIBC low, Ferritin, folate, b12 high, FOB neg -STABLE 3. ESRD on HD -Followed by nephrology 4. Hematoma of Rt hand and wrist -I and D drainage by Dr. Dean 11/17 -IMPROVED 5. Dysphagia -on tube feeds and pureed nectar for oral gratification 6. DM2 7. HTN 8. H/O diastolic dysfunction heart failure 9. S/P EGD 11/18 10. Moderate gastritis with no bleeding noted. 11. Hospital acquired pneumonia -improved 12. Yeast in urine cx -cx 12/20 12. Emesis -pt had another episode of emesis this am of just her medications after they were given. Residuals were 15cc prior to giving medications. The emesis contained only the medications no tube feeds. Gastric biopsy results: Stomach, biopsy: -- Antral and oxyntic mucosa showing minimal plasma cell infiltration and small focus of intestinal metaplasia. -- No Helicobacter pylori is identified in Giemsa stain (positive control concurrently reviewed). -- No evidence of dysplasia or malignancy. Plan: Consider GJ tube Give medications in small doses Reglan 5 mg prior to meals, low dose to due ESRD Continue present care Monitor HH closely and for active GI bleeding, Increase feeding to 45 cc/h patient is very cachectic Consultation Date/Type/Reason Admit Date/Time Nov 16, 2018 at 05:51 Initial Consult Date 11/16/18 Requesting Provider: DYLON WALLS MD Date/Time of Note DATE: 12/29/18 TIME: 15:18 24 HR Interval Summary Constitutional: no complaints, improved Exam/Review of Systems Exam Vitals Vital Signs Date Temp Pulse Resp B/P (MAP) Pulse Ox O2 O2 Flow FiO2 Time Delivery Rate 12/29/18 98.2 70 18 144/56 98 13:53 (85) 12/29/18 Room Air 13:47 12/27/18 2.0 08:00 Constitutional: alert, oriented, well developed Psych: no complaints, nl mood/affect Head: normocephalic, atraumatic Eyes: nl conjunctiva, EOMI, nl lids, nl sclera, PERRL ENMT: nl external ears & nose, nl lips & teeth, nl nasal mucosa & septum Neck: supple, non-tender Respiratory: clear to auscultation, normal air movement Cardiovascular: regular rate and rhythm, nl pulses Gastrointestinal: soft, nl liver, spleen, non-tender Musculoskeletal: nl extremities to inspection, nl gait and stance Extremities: normal pulses 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: HUNTING AND FISHING GUIDE II-XII intact, nl mental status, nl speech, nl strength Skin: nl turgor; No rash or lesions Lymph: nl lymph nodes Results Result Diagram: 12/27/18 0510 12/29/18 0530 Results 24hrs Laboratory Tests Test 12/28/18 20:46 12/29/18 05:30 12/29/18 08:30 Bedside Glucose 166 160 Sodium Level 135 Potassium Level 4.2 Chloride Level 95 L Carbon Dioxide Level 33 H Anion Gap 7 Blood Urea Nitrogen 68 H Creatinine 2.06 H Est Glomerular Filtrat Rate mL/min Glucose Level 132 Calcium Level 9.0 Medications Medication Current Medications IV Flush (NS 3 ml) 3 ml PER PROTOCOL IV ; Start 11/16/18 at 09:00 Ondansetron HCl (Zofran Inj) 4 mg Q6H PRN IV NAUSEA AND/OR VOMITING Last administered on 12/19/18at 05:53; Admin Dose 4 MG; Start 11/16/18 at 09:00 Hydralazine HCl (Apresoline) 10 mg Q4H PRN IV ELEVATED BLOOD PRESSURE Last administered on 12/22/18at 19:40; Admin Dose 10 MG; Start 11/17/18 at 10:30 Acetaminophen/ Hydrocodone Bitart ([place] (5/325)) 1 tab Q3H PRN PO MODERATE PAIN LEVEL 4-6 Last administered on 12/26/18at 22:10; Admin Dose 1 TAB; Start 11/17/18 at 14:30 Albumin Human 50 ml @ 100 mls/hr WITH DIALYSIS PRN IV SBP<90 Last administered on 12/13/18at 11:03; Admin Dose 100 MLS/HR; Start 11/18/18 at 14:30 Morphine Sulfate (morphine) 6 mg Q4H PRN PO SEVERE PAIN LEVEL 7-10 Last adminis tered on 12/29/18 01:22; Admin Dose 6 MG; Start 11/18/18 at 23:00 Docusate Sodium (Colace Liquid Cup) 100 mg DAILY GTB Last administered on 12/29/18 08:32; Admin Dose 100 MG; Start 11/19/18 at 09:30 Multivit/Ca Carb/ B Cmplx/FA/Prenat ([place]ianna-Roque) 1 tab DAILY GTB Last administered on 12/29/18 08:32; Admin Dose 1 TAB; Start 11/24/18 at 09:00 Lansoprazole (Prevacid) 30 mg DAILY GTB Last administered on 12/29/18 08:32; Admin Dose 30 MG; Start 11/26/18 at 09:00 Acetaminophen (Tylenol Supp) 650 mg Q4H PRN [place] MILD PAIN(1-3) OR TEMP>38C Last administered on 11/26/18 08:32; Admin Dose 650 MG; Start 11/26/18 at 08:30 Epoetin Michael (Epogen (Esrd)) 4,000 units MoWeFr@17 SC Last administered on 12/27/18 19:03; Admin Dose 4,000 UNITS; Start 12/06/18 at 17:00 Hydralazine HCl (Apresoline) 50 mg Q8 PO Last administered on 12/29/18 06:21; Admin Dose 50 MG; Start 12/07/18 at 22:00 Metoprolol Tartrate (Lopressor) 100 mg BID GTB Last administered on 12/28/18 20:53; Admin Dose 100 MG; Start 12/13/18 at 21:00 Aspirin (Halfprin) 81 mg DAILY PO Last administered on 12/29/18 08:32; Admin Dose 81 MG; Start 12/13/18 at 19:30 Senna (Senokot) 1 tab BID PO Last administered on 12/29/18 08:32; Admin Dose 1 TAB; Start 12/17/18 at 21:00 Acetaminophen (Tylenol Tab) 650 mg Q6H PRN PO PAIN LEVEL 1-3 OR FEVER Last administered on 12/21/18 05:01; Admin Dose 650 MG; Start 12/17/18 at 15:00 Albuterol/ Ipratropium (Duoneb) 3 ml Q6H RESP THERAPY PRN HHN sob Last administered on 12/19/18 03:51; Admin Dose 3 ML; Start 12/17/18 at 09:00 Docusate Sodium (Colace) 100 mg Q12H PRN PO CONSTIPATION Last administered on 12/21/18 05:01; Admin Dose 100 MG; Start 12/17/18 at 21:00 Ferrous Sulfate (Feosol Liquid Cup) 300 mg BID GTB Last administered on 12/29/18 08:31; Admin Dose 300 MG; Start 12/17/18 at 21:00 Guaifenesin/ Dextromethorphan (Robitussin Dm Liquid Cup) 5 ml Q4H PRN PO cough Last administered on 12/24/18 21:16; Admin Dose 5 ML; Start 12/17/18 at 18:00 Linagliptin (Tradjenta) 5 mg DAILY GTB Last administered on 12/29/18 08:32; Admin Dose 5 MG; Start 12/17/18 at 09:00 Folic Acid (Folic Acid) 1 mg DAILY GTB Last administered on 12/29/18 08:32; Admin Dose 1 MG; Start 12/18/18 at 09:00 Metoclopramide HCl (Reglan) 5 mg Q8 PRN IV VOMITTING; Start 12/20/18 at 10:00 IV Flush (NS 10 ml) 10 ml AFTER DIALYSIS CATHETER ; Start 12/22/18 at 10:00 Voriconazole (Vfend) 200 mg BID PO Last administered on 12/29/18 08:32; Admin Dose 200 MG; Start 12/22/18 at 11:00 Magnesium Hydroxide (Milk Of Mag) 30 ml DAILY PRN PO CONSTIPATION; Start 12/22/18 at 17:00 Sodium Chloride (NS) -To prime the dialy... DIRECTED FOR HD PRN IV HD; Start 12/23/18 at 16:00 Amlodipine Besylate (Norvasc) 5 mg DAILY GTB Last administered on 12/29/18 08:34; Admin Dose 5 MG; Start 12/25/18 at 15:30 Polyethylene Glycol (Miralax) 17 gm DAILY GTB Last administered on 12/29/18 08:34; Admin Dose 17 GM; Start 12/27/18 at 09:00 Metoclopramide HCl (Reglan) 5 mg Q8 IV Last administered on 12/29/18at 06:21; Admin Dose 5 MG; Start 12/27/18 at 22:00 Insulin Glargine (Lantus) 4 units DAILY@2000 SC Last administered on 12/28/18at 20:50; Admin Dose 4 UNITS; Start 12/28/18 at 20:00 Miscellaneous Information 1 ea NOTE XX ; Start 12/28/18 at 19:00 Glucose (Glutose) 15 gm Q15M PRN PO DECREASED GLUCOSE; Start 12/28/18 at 19:00 Glucose (Glutose) 22.5 gm Q15M PRN PO DECREASED GLUCOSE; Start 12/28/18 at 19:00 Dextrose (D50w Syringe) 25 ml Q15M PRN IV DECREASED GLUCOSE; Start 12/28/18 at 19:00 Dextrose (D50w Syringe) 50 ml Q15M PRN IV DECREASED GLUCOSE; Start 12/28/18 at 19:00 Glucagon (Glucagen) 1 mg Q15M PRN IM DECREASED GLUCOSE; Start 12/28/18 at 19:00 Glucose (Glutose) 15 gm Q15M PRN BUCCAL DECREASED GLUCOSE; Start 12/28/18 at 19:00 CHRISS WELCH MD Dec 29, 2018 15:20
--- NOTE | 2018-12-29 15:43 | PN ---
Date/Time of Note Date/Time of Note DATE: 12/29/18 TIME: 15:40 Assessment/Plan VTE Prophylaxis Risk score (from Nsg)>0 risk: 9 SCD applied (from Nsg): Yes Pharmacological prophylaxis: NA/contraindicated Pharm contraindication: low risk/ambulating Lines/Catheters IV Catheter Type (from Nrsg): Saline Lock Urinary Cath still in place: No Assessment/Plan Hospital Course 83 y/o with 1. Right hand swelling, likely secondary to hematoma, questionable fall. with compression s/p I and D on 11/17/18 2. Gastrointestinal bleed with melena. 3. Hypertension. 4. Diabetes. 5. End-stage renal disease on hemodialysis. 6. History of falls. 7. Vascular dementia.with AMS 8. History of sepsis with VRE. 9. Dysphagia, status post G-tube. 10. History of hip fracture. 11. Thrombocytopenia. 12. Atherosclerotic heart disease. 13 FEVERS now with yeast bacterimia due to UTI reoslved 14 AMS ? METABOLIC ct HEAD neg Plan - HD today MWF - Hold BP meds before hd - renally dose all meds Result Diagram: 12/27/18 0510 12/29/18 0530 Results 24hrs Laboratory Tests Test 12/28/18 20:46 12/29/18 05:30 12/29/18 08:30 Bedside Glucose 166 160 Sodium Level 135 Potassium Level 4.2 Chloride Level 95 L Carbon Dioxide Level 33 H Anion Gap 7 Blood Urea Nitrogen 68 H Creatinine 2.06 H Est Glomerular Filtrat Rate mL/min Glucose Level 132 Calcium Level 9.0 Subjective 24 Hr Interval Summary Free Text/Dictation HD in progress Exam/Review of Systems Exam Vitals Vital Signs Date Temp Pulse Resp B/P (MAP) Pulse Ox O2 O2 Flow FiO2 Time Delivery Rate 12/29/18 75 15:15 12/29/18 98.2 18 144/56 98 13:53 (85) 12/29/18 Room Air 13:47 12/27/18 2.0 08:00 Exam Respiratory: clear to auscultation Cardiovascular: regular rate and rhythm Gastrointestinal: soft, bowel sounds Musculoskeletal: nl extremities to inspection permacath Results Results 24hrs Laboratory Tests Test 12/28/18 20:46 12/29/18 05:30 12/29/18 08:30 Bedside Glucose 166 160 Sodium Level 135 Potassium Level 4.2 Chloride Level 95 L Carbon Dioxide Level 33 H Anion Gap 7 Blood Urea Nitrogen 68 H Creatinine 2.06 H Est Glomerular Filtrat Rate mL/min Glucose Level 132 Calcium Level 9.0 Medications Medication Current Medications IV Flush (NS 3 ml) 3 ml PER PROTOCOL IV ; Start 11/16/18 at 09:00 Ondansetron HCl (Zofran Inj) 4 mg Q6H PRN IV NAUSEA AND/OR VOMITING Last administered on 12/19/18 05:53; Admin Dose 4 MG; Start 11/16/18 at 09:00 Hydralazine HCl (Apresoline) 10 mg Q4H PRN IV ELEVATED BLOOD PRESSURE Last administered on 12/22/18 19:40; Admin Dose 10 MG; Start 11/17/18 at 10:30 Acetaminophen/ Hydrocodone Bitart ([place] (5/325)) 1 tab Q3H PRN PO MODERATE PAIN LEVEL 4-6 Last administered on 12/26/18 22:10; Admin Dose 1 TAB; Start 11/17/18 at 14:30 Albumin Human 50 ml @ 100 mls/hr WITH DIALYSIS PRN IV SBP<90 Last administered on 12/13/18 11:03; Admin Dose 100 MLS/HR; Start 11/18/18 at 14:30 Morphine Sulfate (morphine) 6 mg Q4H PRN PO SEVERE PAIN LEVEL 7-10 Last administered on 12/29/18 01:22; Admin Dose 6 MG; Start 11/18/18 at 23:00 Docusate Sodium (Colace Liquid Cup) 100 mg DAILY GTB Last administered on 12/29/18 08:32; Admin Dose 100 MG; Start 11/19/18 at 09:30 Multivit/Ca Carb/ B Cmplx/FA/Prenat ([place]ianna-Roque) 1 tab DAILY GTB Last administered on 12/29/18 08:32; Admin Dose 1 TAB; Start 11/24/18 at 09:00 Lansoprazole (Prevacid) 30 mg DAILY GTB Last administered on 12/29/18 08:32; Admin Dose 30 MG; Start 11/26/18 at 09:00 Acetaminophen (Tylenol Supp) 650 mg Q4H PRN [place] MILD PAIN(1-3) OR TEMP>38C Last administered on 11/26/18 08:32; Admin Dose 650 MG; Start 11/26/18 at 08:30 Epoetin Michael (Epogen (Esrd)) 4,000 units MoWeFr@17 SC Last administered on 12/27/18 19:03; Admin Dose 4,000 UNITS; Start 12/06/18 at 17:00 Hydralazine HCl (Apresoline) 50 mg Q8 PO Last administered on 12/29/18 06:21; Admin Dose 50 MG; Start 12/07/18 at 22:00 Metoprolol Tartrate (Lopressor) 100 mg BID GTB Last administered on 12/28/18 20:53; Admin Dose 100 MG; Start 12/13/18 at 21:00 Aspirin (Halfprin) 81 mg DAILY PO Last administered on 12/29/18 08:32; Admin Dose 81 MG; Start 12/13/18 at 19:30 Senna (Senokot) 1 tab BID PO Last administered on 12/29/18 08:32; Admin Dose 1 TAB; Start 12/17/18 at 21:00 Acetaminophen (Tylenol Tab) 650 mg Q6H PRN PO PAIN LEVEL 1-3 OR FEVER Last administered on 12/21/18 05:01; Admin Dose 650 MG; Start 12/17/18 at 15:00 Albuterol/ Ipratropium (Duoneb) 3 ml Q6H RESP THERAPY PRN HHN sob Last administered on 12/19/18 03:51; Admin Dose 3 ML; Start 12/17/18 at 09:00 Docusate Sodium (Colace) 100 mg Q12H PRN PO CONSTIPATION Last administered on 12/21/18 05:01; Admin Dose 100 MG; Start 12/17/18 at 21:00 Ferrous Sulfate (Feosol Liquid Cup) 300 mg BID GTB Last administered on 12/29/18 08:31; Admin Dose 300 MG; Start 12/17/18 at 21:00 Guaifenesin/ Dextromethorphan (Robitussin Dm Liquid Cup) 5 ml Q4H PRN PO cough Last administered on 12/24/18 21:16; Admin Dose 5 ML; Start 12/17/18 at 18:00 Linagliptin (Tradjenta) 5 mg DAILY GTB Last administered on 12/29/18 08:32; Admin Dose 5 MG; Start 12/17/18 at 09:00 Folic Acid (Folic Acid) 1 mg DAILY GTB Last administered on 12/29/18at 08:32; Admin Dose 1 MG; Start 12/18/18 at 09:00 Metoclopramide HCl (Reglan) 5 mg Q8 PRN IV VOMITTING; Start 12/20/18 at 10:00 IV Flush (NS 10 ml) 10 ml AFTER DIALYSIS CATHETER ; Start 12/22/18 at 10:00 Voriconazole (Vfend) 200 mg BID PO Last administered on 12/29/18at 08:32; Admin Dose 200 MG; Start 12/22/18 at 11:00 Magnesium Hydroxide (Milk Of Mag) 30 ml DAILY PRN PO CONSTIPATION; Start 12/22/18 at 17:00 Sodium Chloride (NS) -To prime the dialy... DIRECTED FOR HD PRN IV HD; Start 12/23/18 at 16:00 Amlodipine Besylate (Norvasc) 5 mg DAILY GTB Last administered on 12/29/18at 08:34; Admin Dose 5 MG; Start 12/25/18 at 15:30 Polyethylene Glycol (Miralax) 17 gm DAILY GTB Last administered on 12/29/18at 08:34; Admin Dose 17 GM; Start 12/27/18 at 09:00 Metoclopramide HCl (Reglan) 5 mg Q8 IV Last administered on 12/29/18at 06:21; Admin Dose 5 MG; Start 12/27/18 at 22:00 Insulin Glargine (Lantus) 4 units DAILY@2000 SC Last administered on 12/28/18at 20:50; Admin Dose 4 UNITS; Start 12/28/18 at 20:00 Miscellaneous Information 1 ea NOTE XX ; Start 12/28/18 at 19:00 Glucose (Glutose) 15 gm Q15M PRN PO DECREASED GLUCOSE; Start 12/28/18 at 19:00 Glucose (Glutose) 22.5 gm Q15M PRN PO DECREASED GLUCOSE; Start 12/28/18 at 19:00 Dextrose (D50w Syringe) 25 ml Q15M PRN IV DECREASED GLUCOSE; Start 12/28/18 at 19:00 Dextrose (D50w Syringe) 50 ml Q15M PRN IV DECREASED GLUCOSE; Start 12/28/18 at 19:00 Glucagon (Glucagen) 1 mg Q15M PRN IM DECREASED GLUCOSE; Start 12/28/18 at 19:00 Glucose (Glutose) 15 gm Q15M PRN BUCCAL DECREASED GLUCOSE; Start 12/28/18 at 19:00 JOSE RAUL ANDREWS MD Dec 29, 2018 15:43
[2018-12-29] MEDS: EPOETIN 4000 UNITS/1 ML INJ (ESRD) SC SCH (18:08)
[2018-12-29] MEDS: INSULIN GLARGINE [LANTus] (100 UNITS/ML) SYG SC SCH (20:36)
[2018-12-30 02:00] VITALS: BP 158/65; PULSE 67; RESP 18
[2018-12-30] MEDS: METOCLOPRAMIDE 10 MG INJ IV SCH ×3 (06:15→22:15)
--- NOTE | 2018-12-30 06:33 | PN ---
DATE: 12/29/2018 I appreciate . SUBJECTIVE: The patient is seen, appears to be comfortable, currently being dialyzed. No acute even t. PHYSICAL EXAMINATION: VITAL SIGNS: Temperature 98.2, pulse is 70, respiration is 18, blood pressure 144/56. GENERAL: No acute distress. Pale, confused and speaking 1 or 2 words. HEENT: Normocephalic, atraumatic. CARDIOVASCULAR: S1, S2. Regular rate. LUNGS: Clear. ABDOMEN: Soft. G-tube in place. EXTREMITIES: No clubbing, cyanosis or edema. LABORATORY DATA: Labs on 12/27 show a white count of 7, hemoglobin 7.0, hematocrit 26, platelet coun t of 202, neutrophils 62%, lymphocytes 15%. Chemistry: Sodium 135, potassium 4.2, chloride 95, bica rbonate 32, BUN is 68, creatinine 2.06 and glucose of 132. This was done today. MEDICATIONS: All reviewed. They include the followin. Lantus 4 units daily. 2. Reglan 5 mg IV q.8. 3. MiraLax 17 grams daily. 4. Norvasc 5 mg daily. 5. Milk of Magnesia as directed. 6. Vfend 200 mg b.i.d. 7. Folic acid 1 mg daily. 8. Senna 1 tab b.i.d. 9. Colace 100 ____. 10. Ferrous sulfate 300 b.i.d. 11. Robitussin p.r.n. 12. Tylenol p.r.n. 13. DuoNeb p.r.n. 14. Tradjenta 5 mg daily. 15. Lopressor 100 b.i.d. 16. Aspirin 81 mg daily. 17. Hydralazine 50 q.8 hours. 18. Epogen every Thursday, Thursday and Thursday. 19. Prevacid 30 mg daily. 20. Kianna-Roque 1 tab daily. 21. Colace 100 ____. 22. Morphine p.r.n. 23. [place] p.r.n. 24. Hydralazine p.r.n. 25. Zofran p.r.n. ASSESSMENT AND PLAN: This is an 83-year-old [place] female with: 1. End-stage renal disease, advanced dementia, atherosclerotic cardiovascular disease, chronic obstr uctive pulmonary disease, status post evacuation of right hand hematoma, status post line sepsis, marta teremia, fungemia, urinary tract infection, doing better overall. 2. Respiratory. Continue O2 support and aspiration precautions. Keep head elevated. 3. Dysphagia. G-tube feeding via continuous rate at 30 mL/hr. Continue Reglan. 4. Cardiovascular. Blood pressure is better controlled. 5. Diabetes mellitus, on Tradjenta and low-dose Lantus. The patient's glucose levels are as follows : 160, 166. Continue the same. 6. End-stage renal disease, getting dialysis 3 times a week on Thursday, Thursday, Thursday. Currently being dialyzed. Monitor electrolytes. 7. Anemia. Epogen per Nephrology. May transfuse p.r.n. 8. Urinary tract infection. Continue the same. 9. Mood disorder, stable overall. I did discontinue patient's psych meds. May consider just an ant idepressant such as Lexapro. We will follow. Dictated By: DYLON HULL/MADAN Conf#: [id number] DID#: [id number]
[2018-12-30 08:16] VITALS: BP 143/59; PULSE 73; RESP 18
--- NOTE | 2018-12-30 08:38 | CONS ---
Consult Date/Type/Reason Admit Date/Time Nov 16, 2018 at 05:51 Initial Consult Date 11/16/18 Type of Consultation: cv Requesting Provider: DYLON WALLS MD Date/Time of Note DATE: 12/30/18 TIME: 08:38 Subjective Cardiology follow up note Sl DW/ Staff and telemetry was reviewed. Patient is off tele now pt continues to be confused but calm and cooperative now no report of any chest pain or pressure or palpitations but pt is a very poor historian Events noted. 12/13/18: Patient went into atrial fibrillation rapid ventricular response during hemodialysis . Patient has been transferred to telemetry and converted back to sinus rhythm remains in sinus rhythm s/p I/D 11/17 EGD 11.18.18 O: General: Elderly frail female in no acute distress HEENT: NC/AT. Eyes are closed NECK: NO JVD. no stridor. CV: RRR. systolic murmur; no gallop or rubs. PULM: no wheezing or rhonchi. GI: SOFT, NT, ND, no rebound or guarding neuro: sleeping Psych: calm now rectal: deferred Objective Vitals Vital Signs Date Temp Pulse Resp B/P (MAP) Pulse Ox O2 O2 Flow FiO2 Time Delivery Rate 12/30/18 97.9 73 18 143/59 97 Room Air 08:16 (87) 12/27/18 2.0 08:00 Intake and Output 12/29/18 12/29/18 12/30/18 1414:59 22:59 06:59 IntakeIntake Total 440 ml OutputOutput Total 200 ml 1400 ml BalanceBalance -200 ml -960 ml Results/Medications Result Diagram: 12/27/18 0510 12/29/18 0530 Results 24 hrs Laboratory Tests Test 12/29/18 20:31 Bedside Glucose 179 Home Meds Reported Medications Sennosides* (Senna Lax*) 8.6 Mg Tablet, 1 TAB PO BID, TAB 11/16/18 Sevelamer Carbonate* (Renvela*) 0.8 Gm Powd.pack, 0.8 GM PO WITH MEALS, PACKET 11/16/18 Lansoprazole* (Lansoprazole*) 30 Mg Capsule.dr, 30 MG PO QAM, CAP 11/16/18 Hydralazine Hcl* (Hydralazine Hcl*) 25 Mg Tab, 25 MG PO Q8, #90 TAB 11/16/18 Ferrous Sulfate* (Ferrous Sulfate*) 325 Mg Tabec, 325 MG PO BID for anemia, TAB 11/16/18 Valproate Sodium (Valproic Acid) 250 Mg/5 Ml Solution, 250 MG PO Q8, ML 11/16/18 Insulin Aspart* (Novolog Insulin Pen*) 100 Unit/Ml Soln, 0 SC .SLIDING SCALE AC, EA IF BS 160-200=2 UNITS,201-250=4 UNITS,251-300=8 UNITS,301-350=12 UNITS;351-400=16 UNITS THEN CALL MD. 10/16/18 Ondansetron Hcl* (Zofran*) 4 Mg Tab, 4 MG GTB Q4H PRN for NAUSEA AND OR VOMITING, TAB 10/16/18 Linagliptin (TRADJENTA) 5 Mg Tablet, 5 MG GTB DAILY, TAB 10/16/18 Quetiapine Fumarate* (Seroquel*) 25 Mg Tablet, 25 MG GTB BID, #60 TAB 10/16/18 [Nephro-Roque] No Conflict Check, 0.8 MG GTB DAILY 10/16/18 Polyethylene Glycol* (Miralax*) 17 Gm Powd.pack, 17 GM GTB Q24H, #30 PACKET 10/16/18 Metoprolol Tartrate* (Lopressor*) 50 Mg Tab, 50 MG GTB DAILY, #60 TAB Q MON,WED,FRI,SUN,HOLD FOR SBP<110 OR MT<60 10/16/18 Metoprolol Tartrate* (Lopressor*) 50 Mg Tab, 50 MG GTB BID, #60 TAB QTUE,ANDREW,SAT,HOLD FOR SBP<110 OR MT<60 10/16/18 Linaclotide (LINZESS) 145 Mcg Capsule, 145 MCG GTB DAILY, #30 CAP 10/16/18 Ipratropium-Albuterol (Ipratropium-Albuterol) 0.5-3 Mg/3 Ml Ampul.neb, 3 ML INHALATION Q6, #30 VIAL FOR 14 DAYS,STOP DATE 10/17/18 10/16/18 Hydralazine Hcl* (Hydralazine Hcl*) 25 Mg Tab, 25 MG GTB DAILY, #60 TAB Q TUE,ANDREW,SAT,HOLD IF SBP<110 OR MT<60 10/16/18 Folic Acid* (Folic Acid*) 1 Mg Tablet, 1 MG GTB DAILY, TAB 10/16/18 Docusate Sodium* (Colace*) 100 Mg Capsule, 100 MG GTB DAILY, #30 CAP 10/16/18 Lorazepam* (Lorazepam*) 1 Mg Tablet, 1 MG GTB HS PRN for ANXIETY, #30 TAB Q TUE,ANDREW,SAT 10/16/18 Amlodipine Besylate* (Norvasc*) 5 Mg Tablet, 5 MG GTB BID, TAB TAKE Q TUE,ANDREW,SAT FOR HTN, HOLD FOR SBP<110 OR MT<60 10/16/18 Acetaminophen* (Acetaminophen*) 650 Mg Tablet, 650 MG GTB Q6H PRN for PAIN LEVEL 1-08/18, #30 TAB 10/16/18 Medications Current Medications IV Flush (NS 3 ml) 3 ml PER PROTOCOL IV ; Start 11/16/18 at 09:00 Ondansetron HCl (Zofran Inj) 4 mg Q6H PRN IV NAUSEA AND/OR VOMITING Last administered on 12/19/18 05:53; Admin Dose 4 MG; Start 11/16/18 at 09:00 Hydralazine HCl (Apresoline) 10 mg Q4H PRN IV ELEVATED BLOOD PRESSURE Last administered on 12/22/18 19:40; Admin Dose 10 MG; Start 11/17/18 at 10:30 Acetaminophen/ Hydrocodone Bitart ([place] (5/325)) 1 tab Q3H PRN PO MODERATE PAIN LEVEL 4-6 Last administered on 12/26/18 22:10; Admin Dose 1 TAB; Start 11/17/18 at 14:30 Albumin Human 50 ml @ 100 mls/hr WITH DIALYSIS PRN IV SBP<90 Last administered on 12/13/18 11:03; Admin Dose 100 MLS/HR; Start 11/18/18 at 14:30 Morphine Sulfate (morphine) 6 mg Q4H PRN PO SEVERE PAIN LEVEL 7-10 Last administered on 12/29/18 01:22; Admin Dose 6 MG; Start 11/18/18 at 23:00 Docusate Sodium (Colace Liquid Cup) 100 mg DAILY GTB Last administered on 12/29/18at 08:32; Admin Dose 100 MG; Start 11/19/18 at 09:30 Multivit/Ca Carb/ B Cmplx/FA/Prenat (Kianna-Roque) 1 tab DAILY GTB Last administered on 12/29/18 08:32; Admin Dose 1 TAB; Start 11/24/18 at 09:00 Lansoprazole (Prevacid) 30 mg DAILY GTB Last administered on 12/29/18 08:32; Admin Dose 30 MG; Start 11/26/18 at 09:00 Acetaminophen (Tylenol Supp) 650 mg Q4H PRN [place] MILD PAIN(1-3) OR TEMP>38C Last administered on 11/26/18 08:32; Admin Dose 650 MG; Start 11/26/18 at 08:30 Epoetin Michael (Epogen (Esrd)) 4,000 units MoWeFr@17 SC Last administered on 12/29/18 18:08; Admin Dose 4,000 UNITS; Start 12/06/18 at 17:00 Hydralazine HCl (Apresoline) 50 mg Q8 PO Last administered on 12/30/18 06:16; Admin Dose 50 MG; Start 12/07/18 at 22:00 Metoprolol Tartrate (Lopressor) 100 mg BID GTB Last administered on 12/29/18 20:38; Admin Dose 100 MG; Start 12/13/18 at 21:00 Aspirin (Halfprin) 81 mg DAILY PO Last administered on 12/29/18 08:32; Admin Dose 81 MG; Start 12/13/18 at 19:30 Senna (Senokot) 1 tab BID PO Last administered on 12/29/18 20:37; Admin Dose 1 TAB; Start 12/17/18 at 21:00 Acetaminophen (Tylenol Tab) 650 mg Q6H PRN PO PAIN LEVEL 1-3 OR FEVER Last administered on 12/21/18 05:01; Admin Dose 650 MG; Start 12/17/18 at 15:00 Albuterol/ Ipratropium (Duoneb) 3 ml Q6H RESP THERAPY PRN HHN sob Last administered on 12/19/18 03:51; Admin Dose 3 ML; Start 12/17/18 at 09:00 Docusate Sodium (Colace) 100 mg Q12H PRN PO CONSTIPATION Last administered on 12/21/18 05:01; Admin Dose 100 MG; Start 12/17/18 at 21:00 Ferrous Sulfate (Feosol Liquid Cup) 300 mg BID GTB Last administered on 12/29/18 20:37; Admin Dose 300 MG; Start 12/17/18 at 21:00 Guaifenesin/ Dextromethorphan (Robitussin Dm Liquid Cup) 5 ml Q4H PRN PO cough Last administered on 12/24/18 21:16; Admin Dose 5 ML; Start 12/17/18 at 18:00 Linagliptin (Tradjenta) 5 mg DAILY GTB Last administered on 12/29/18 08:32; Admin Dose 5 MG; Start 12/17/18 at 09:00 Folic Acid (Folic Acid) 1 mg DAILY GTB Last administered on 12/29/18 08:32; Admin Dose 1 MG; Start 12/18/18 at 09:00 Metoclopramide HCl (Reglan) 5 mg Q8 PRN IV VOMITTING; Start 12/20/18 at 10:00 IV Flush (NS 10 ml) 10 ml AFTER DIALYSIS CATHETER ; Start 12/22/18 at 10:00 Voriconazole (Vfend) 200 mg BID PO Last administered on 12/29/18 20:37; Admin Dose 200 MG; Start 12/22/18 at 11:00 Magnesium Hydroxide (Milk Of Mag) 30 ml DAILY PRN PO CONSTIPATION; Start 12/22/18 at 17:00 Sodium Chloride (NS) -To prime the dialy... DIRECTED FOR HD PRN IV HD; Start 12/23/18 at 16:00 Amlodipine Besylate (Norvasc) 5 mg DAILY GTB Last administered on 12/29/18 08:34; Admin Dose 5 MG; Start 12/25/18 at 15:30 Polyethylene Glycol (Miralax) 17 gm DAILY GTB Last administered on 12/29/18 08:34; Admin Dose 17 GM; Start 12/27/18 at 09:00 Metoclopramide HCl (Reglan) 5 mg Q8 IV Last administered on 12/30/18 06:15; Admin Dose 5 MG; Start 12/27/18 at 22:00 Insulin Glargine (Lantus) 4 units DAILY@2000 SC Last administered on 12/29/18 20:36; Admin Dose 4 UNITS; Start 12/28/18 at 20:00 Miscellaneous Information 1 ea NOTE XX ; Start 12/28/18 at 19:00 Glucose (Glutose) 15 gm Q15M PRN PO DECREASED GLUCOSE; Start 12/28/18 at 19:00 Glucose (Glutose) 22.5 gm Q15M PRN PO DECREASED GLUCOSE; Start 12/28/18 at 19:00 Dextrose (D50w Syringe) 25 ml Q15M PRN IV DECREASED GLUCOSE; Start 12/28/18 at 19:00 Dextrose (D50w Syringe) 50 ml Q15M PRN IV DECREASED GLUCOSE; Start 12/28/18 at 19:00 Glucagon (Glucagen) 1 mg Q15M PRN IM DECREASED GLUCOSE; Start 12/28/18 at 19:00 Glucose (Glutose) 15 gm Q15M PRN BUCCAL DECREASED GLUCOSE; Start 12/28/18 at 19:00 Assessment/Plan Hospital Course (Demo Recall) P-atrial fibrillation rapid ventricular response: Currently back in sinus rhythm fungemia /fungal urinary tract infection Status post right hand hematoma: Status post I&D Renal failure on dialysis Hypertension Dementia Anemia Possible GI bleed: Status post EGD AI Recommendations: pt is not on full anticoagulation due to the fall risk as well as anemia cont beta-farrah Dialysis as per renal team Neuro workup and treatment as per internal medicine Antibiotic as per ID and internal medicine asa for now and monitor Thank you for his referral. We will continue to follow along with you as needed basis CHRISTEN ESCOBEDO MD [facility] CHRISTEN ESCOBEDO MD Dec 30, 2018 08:38
[2018-12-30] MEDS: VORICONAZOLE 200 MG TAB PO SCH ×2 (09:09→20:17)
[2018-12-30] MEDS: SENNA TAB PO SCH ×2 (09:09→20:17)
[2018-12-30] MEDS: ASPIRIN (EC) 81 MG TAB PO SCH (09:10)
[2018-12-30] MEDS: DOCUSATE SODIUM 10 MG/ML (10ML CUP) GTB SCH (09:10)
[2018-12-30] MEDS: MULTIVIT/CA CARB/B CMPLX/FA TAB GTB SCH (09:10)
[2018-12-30] MEDS: FOLIC ACID 1 MG TAB GTB SCH (09:10)
[2018-12-30] MEDS: FERROUS SULFATE 60 MG/ML 5ML CUP GTB SCH ×2 (09:10→20:16)
[2018-12-30] MEDS: LANSOPRAZOLE 30 MG CAP GTB SCH (09:10)
[2018-12-30] MEDS: LINAGLIPTIN 5 MG TABLET GTB SCH (09:13)
[2018-12-30] MEDS: METOPROLOL 50 MG TAB GTB SCH ×2 (09:14→20:18)
[2018-12-30] MEDS: POLYETHYLENE GLYCOL 17 GM PACKET GTB SCH (09:14)
[2018-12-30] MEDS: AMLODIPINE 5 MG TAB GTB SCH (09:14)
[2018-12-30] MEDS: morphine LIQ (10 MG/5 ML) CUP PO PRN (09:15)
[2018-12-30 14:26] VITALS: BP 104/42; PULSE 55; RESP 16
--- NOTE | 2018-12-30 14:42 | CONS ---
Assessment/Plan Assessment/Plan Hospital Course (Demo Recall) ID PROGRESS NOTE CURRENT ABX: DAY #=> VFEND s/p Merrem # + Cancidas 24H INTERVAL SUMMARY * The patient is napping, VSS, NAD, looks comfortably, brittany, NAD, without dyspnea on room air * Yesterday she completed HD session -- case d/w RN -- no new issues reported, no c/o, no fevers * DC planning in process -- pending placement -- no other new events * Indwelling: Left chest PermCath, PEG MICRO * 12/20/18 URINE Cx (+) Glabrata URINE CULTURE Final Organism 1 TYREE GLABRATA COLONY COUNT 30,000 - 40,000 CFU/ml * 12/20/18 BCx (-) * 12/18/18 BCx (-) * 12/06/18 URINE Cx (+) Glabrata * 12/03/18 BCx (-) * 12/01/18 BCx (-) * 11/29/18 BCx (+) Glabrata * 11/24/18 BCX (+) Glabrata = fungemia PHYSICAL EXAMINATION: GENERAL: Afebrile, VSS, HEENT: AT, NC, anicteric NECK: Supple, trach CHEST: Equal chest rise bilaterally, without dyspnea on observation HEART: Pulse RRR ABDOMEN: Soft / NT EXTREMITIES: Warm, dry SKIN: No rash, no diaphoresis ID ASSESSMENT 83 yo F w/ DEMENTIA admit with: 1. FUNGEMIA == secondary to GLABRATA UTI => RESOLVED 2. Status post VRE bacteremia, status post new Pcath => RESOLVED 3. End-stage renal disease, hemodialysis dependent 4. Health care Acquired PNA -- ?ASP PNA?=> RESOLVED 5. Right hand hematoma, status post I&D 11/17/18=> RESOLVED 6. Diabetes 7. Anemia 8. Failure to thrive - Frail cachectic w/dementia (-)MRSA Nares ABX ALLERGIES: KNDA INVASIVES: PIV, Left chest PermCath CURRENT ABX: DAY #=> VFEND s/p Merrem # + Cancidas ID RECOMMENDATIONS/PLAN: Continue on Vfend==>May DC on VFEND to complete 14 days for recurrent Glabrata UTI when cleared by primary . Consultation Date/Type/Reason Admit Date/Time Nov 16, 2018 at 05:51 Initial Consult Date 11/16/18 Requesting Provider: DYLON WALLS MD Date/Time of Note DATE: 12/30/18 TIME: 14:41 Exam/Review of Systems Exam Vitals Vital Signs Date Temp Pulse Resp B/P (MAP) Pulse Ox O2 O2 Flow FiO2 Time Delivery Rate 12/30/18 98.0 55 16 104/42 97 Room Air 14:26 (62) 12/27/18 2.0 08:00 Intake and Output 12/29/18 12/29/18 12/30/18 1515:00 23:00 07:00 IntakeIntake Total 440 ml OutputOutput Total 200 ml 1400 ml BalanceBalance -200 ml -960 ml Results Result Diagram: 12/27/18 0510 12/29/18 0530 Results 24hrs Laboratory Tests Test 12/29/18 20:31 12/30/18 09:13 Bedside Glucose 179 148 Medications Medication Current Medications IV Flush (NS 3 ml) 3 ml PER PROTOCOL IV ; Start 11/16/18 at 09:00 Ondansetron HCl (Zofran Inj) 4 mg Q6H PRN IV NAUSEA AND/OR VOMITING Last administered on 12/19/18 05:53; Admin Dose 4 MG; Start 11/16/18 at 09:00 Hydralazine HCl (Apresoline) 10 mg Q4H PRN IV ELEVATED BLOOD PRESSURE Last administered on 12/22/18 19:40; Admin Dose 10 MG; Start 11/17/18 at 10:30 Acetaminophen/ Hydrocodone Bitart ([place] (5/325)) 1 tab Q3H PRN PO MODERATE PAIN LEVEL 4-6 Last administered on 12/26/18 22:10; Admin Dose 1 TAB; Start 11/17/18 at 14:30 Albumin Human 50 ml @ 100 mls/hr WITH DIALYSIS PRN IV SBP<90 Last administered on 12/13/18 11:03; Admin Dose 100 MLS/HR; Start 11/18/18 at 14:30 Morphine Sulfate (morphine) 6 mg Q4H PRN PO SEVERE PAIN LEVEL 7-10 Last administered on 12/30/18 09:15; Admin Dose 6 MG; Start 11/18/18 at 23:00 Docusate Sodium (Colace Liquid Cup) 100 mg DAILY GTB Last administered on 12/30/18 09:10; Admin Dose 100 MG; Start 11/19/18 at 09:30 Multivit/Ca Carb/ B Cmplx/FA/Prenat (Kianna-Roque) 1 tab DAILY GTB Last ad ministered on 12/30/18 09:10; Admin Dose 1 TAB; Start 11/24/18 at 09:00 Lansoprazole (Prevacid) 30 mg DAILY GTB Last administered on 12/30/18 09:10; Admin Dose 30 MG; Start 11/26/18 at 09:00 Acetaminophen (Tylenol Supp) 650 mg Q4H PRN [place] MILD PAIN(1-3) OR TEMP>38C Last administered on 11/26/18 08:32; Admin Dose 650 MG; Start 11/26/18 at 08:30 Epoetin Michael (Epogen (Esrd)) 4,000 units MoWeFr@17 SC Last administered on 12/29/18 18:08; Admin Dose 4,000 UNITS; Start 12/06/18 at 17:00 Hydralazine HCl (Apresoline) 50 mg Q8 PO Last administered on 12/30/18 06:16; Admin Dose 50 MG; Start 12/07/18 at 22:00 Metoprolol Tartrate (Lopressor) 100 mg BID GTB Last administered on 12/30/18 09:14; Admin Dose 100 MG; Start 12/13/18 at 21:00 Aspirin (Halfprin) 81 mg DAILY PO Last administered on 12/30/18 09:10; Admin Dose 81 MG; Start 12/13/18 at 19:30 Senna (Senokot) 1 tab BID PO Last administered on 12/30/18 09:09; Admin Dose 1 TAB; Start 12/17/18 at 21:00 Acetaminophen (Tylenol Tab) 650 mg Q6H PRN PO PAIN LEVEL 1-3 OR FEVER Last administered on 12/21/18 05:01; Admin Dose 650 MG; Start 12/17/18 at 15:00 Albuterol/ Ipratropium (Duoneb) 3 ml Q6H RESP THERAPY PRN HHN sob Last administered on 12/19/18 03:51; Admin Dose 3 ML; Start 12/17/18 at 09:00 Docusate Sodium (Colace) 100 mg Q12H PRN PO CONSTIPATION Last administered on 12/21/18 05:01; Admin Dose 100 MG; Start 12/17/18 at 21:00 Ferrous Sulfate (Feosol Liquid Cup) 300 mg BID GTB Last administered on 12/30/18 09:10; Admin Dose 300 MG; Start 12/17/18 at 21:00 Guaifenesin/ Dextromethorphan (Robitussin Dm Liquid Cup) 5 ml Q4H PRN PO cough Last administered on 12/24/18 21:16; Admin Dose 5 ML; Start 12/17/18 at 18:00 Linagliptin (Tradjenta) 5 mg DAILY GTB Last administered on 12/30/18 09:13; Admin Dose 5 MG; Start 12/17/18 at 09:00 Folic Acid (Folic Acid) 1 mg DAILY GTB Last administered on 12/30/18 09:10; Admin Dose 1 MG; Start 12/18/18 at 09:00 Metoclopramide HCl (Reglan) 5 mg Q8 PRN IV VOMITTING; Start 12/20/18 at 10:00 IV Flush (NS 10 ml) 10 ml AFTER DIALYSIS CATHETER ; Start 12/22/18 at 10:00 Voriconazole (Vfend) 200 mg BID PO Last administered on 12/30/18 09:09; Admin Dose 200 MG; Start 12/22/18 at 11:00 Magnesium Hydroxide (Milk Of Mag) 30 ml DAILY PRN PO CONSTIPATION; Start 12/22/18 at 17:00 Sodium Chloride (NS) -To prime the dialy... DIRECTED FOR HD PRN IV HD; Start 12/23/18 at 16:00 Amlodipine Besylate (Norvasc) 5 mg DAILY GTB Last administered on 12/30/18 09:14; Admin Dose 5 MG; Start 12/25/18 at 15:30 Polyethylene Glycol (Miralax) 17 gm DAILY GTB Last administered on 12/30/18 09:14; Admin Dose 17 GM; Start 12/27/18 at 09:00 Metoclopramide HCl (Reglan) 5 mg Q8 IV Last administered on 12/30/18 14:36; Admin Dose 5 MG; Start 12/27/18 at 22:00 Insulin Glargine (Lantus) 4 units DAILY@2000 SC Last administered on 2/20/19at 20:36; Admin Dose 4 UNITS; Start 12/28/18 at 20:00 Miscellaneous Information 1 ea NOTE XX ; Start 12/28/18 at 19:00 Glucose (Glutose) 15 gm Q15M PRN PO DECREASED GLUCOSE; Start 12/28/18 at 19:00 Glucose (Glutose) 22.5 gm Q15M PRN PO DECREASED GLUCOSE; Start 12/28/18 at 19:00 Dextrose (D50w Syringe) 25 ml Q15M PRN IV DECREASED GLUCOSE; Start 12/28/18 at 19:00 Dextrose (D50w Syringe) 50 ml Q15M PRN IV DECREASED GLUCOSE; Start 12/28/18 at 19:00 Glucagon (Glucagen) 1 mg Q15M PRN IM DECREASED GLUCOSE; Start 12/28/18 at 19:00 Glucose (Glutose) 15 gm Q15M PRN BUCCAL DECREASED GLUCOSE; Start 12/28/18 at 19:00 SEVERO GARCIA NP Dec 30, 2018 14:42
--- NOTE | 2018-12-30 16:00 | PN ---
DATE: 12/30/2018 SUBJECTIVE: The patient was seen comfortable, verbal, no acute events, awaiting placement. PHYSICAL EXAMINATION: VITAL SIGNS: Temperature 98, pulse 55, respirations 16, blood pressure 104/42, saturation 97% on tammy m air. GENERAL: No acute distress. HEENT: Normocephalic, atraumatic, frail, pale. CARDIOVASCULAR: S1, S2, regular rate. LUNGS: Clear. ABDOMEN: Soft. G-tube in place. EXTREMITIES: No clubbing, cyanosis or edema. LABORATORY DATA: No new labs today. MEDICATIONS: All reviewed and include: 1. Lantus 4 units daily at night. 2. Hypoglycemia protocol. 3. Reglan 5 mg IV q.8. 4. MiraLax 17 grams daily. 5. Norvasc 5 mg daily. 6. Milk of Magnesia p.r.n. 7. Vfend 200 b.i.d. 8. Reglan p.r.n. 9. Folic acid 1 mg daily. 10. Senna 1 tab b.i.d. 11. Colace 100 p.r.n. 12. Ferrous sulfate 300 b.i.d. 13. Robitussin p.r.n. 14. Tylenol p.r.n. 15. DuoNeb p.r.n. 16. Januvia 50 mg daily. 17. Lopressor 100 b.i.d. 18. Aspirin 81 mg daily. 19. Hydralazine 50 q.8. 20. Epogen as directed. 21. Prevacid 30 mg daily. 22. Tylenol p.r.n. 23. Kianna-Roque 1 tab daily. 24. Morphine sulfate p.r.n. 25. [place] p.r.n. 26. Zofran p.r.n. ASSESSMENT AND PLAN: This is an unfortunate 83-year-old [place] female with end-stage renal disease , advanced dementia, atherosclerotic cardiovascular disease, chronic obstructive pulmonary disease, s tatus post treatment for bacteremia, fungemia, urinary tract infection and right hand hematoma status post incision and drainage. 1. Respiratory. O2 support as needed. Continue aspiration precaution. Head elevation. Reglan as well to prevent aspiration. 2. Dysphagia. Continue G-tube feeding at a rate of 30 mL an hour. 3. Cardiovascular. Vitals are stable. 4. Diabetes mellitus. Glucose levels are in the 100s on low dose Levemir, Tradjenta and sliding sca le. Last glucose level of 148. 5. End-stage renal disease, dialysis per nephrology team. Monitor electrolytes. 6. Anemia. Continue Epogen. Follow up CBC tomorrow. 7. Urinary tract infection. Continue the Vfend for 1 more week. 8. Mood disorder. Mood appears to be stable. senior accounting manager is assisting with placement. We will follow. Dictated By: DYLON HULL/NTS Conf#: [id number] DID#: [id number] CC: CHRISS WELCH MD;*EndCC*
--- NOTE | 2018-12-30 16:40 | CONS ---
Assessment/Plan Assessment/Plan Hospital Course (Demo Recall) 83 y/o with Hospital Course (Demo Recall) 1. End-stage renal disease on hemodialysis. 2. Gastrointestinal bleed with melena.resolved 3. Hypertension. 4. Diabetes. 5. Right hand swelling, s/p I and D on 11/17/18 6. History of falls. 7. Vascular dementia. 8. History of sepsis with VRE. 9. Dysphagia, status post G-tube. 10. History of hip fracture. 11. Thrombocytopenia. 12. Atherosclerotic heart disease. 13. Pneumonia left side 14. Anemia 15 YEAST BACTERIMIA LIKELY DUE TO UTI 16 Paroxsymal AFib now in sinus Assessment/Plan (Daily) - Hd MWF, Hd tmw - cw with permacath -avoid nephrotoxic drugs -HD MWFr -c/w epogen - Aspiration precautions Consultation Date/Type/Reason Admit Date/Time Nov 16, 2018 at 05:51 Initial Consult Date 11/16/18 Requesting Provider: DYLON WALLS MD Date/Time of Note DATE: 12/30/18 TIME: 16:39 24 HR Interval Summary Free Text/Dictation Awaiting placement no events Exam/Review of Systems Exam Vitals Vital Signs Date Temp Pulse Resp B/P (MAP) Pulse Ox O2 O2 Flow FiO2 Time Delivery Rate 12/30/18 98.0 55 16 104/42 97 Room Air 14:26 (62) 12/27/18 2.0 08:00 Intake and Output 12/29/18 12/29/18 12/30/18 1515:00 23:00 07:00 IntakeIntake Total 440 ml OutputOutput Total 200 ml 1400 ml BalanceBalance -200 ml -960 ml Exam Respiratory: clear to auscultation Cardiovascular: regular rate and rhythm Gastrointestinal: soft, bowel sounds Musculoskeletal: nl extremities to inspection permacath Results Result Diagram: 12/27/18 0510 12/29/18 0530 Results 24hrs Laboratory Tests Test 12/29/18 20:31 12/30/18 09:13 Bedside Glucose 179 148 Medications Medication Current Medications IV Flush (NS 3 ml) 3 ml PER PROTOCOL IV ; Start 11/16/18 at 09:00 Ondansetron HCl (Zofran Inj) 4 mg Q6H PRN IV NAUSEA AND/OR VOMITING Last administered on 12/19/18at 05:53; Admin Dose 4 MG; Start 11/16/18 at 09:00 Hydralazine HCl (Apresoline) 10 mg Q4H PRN IV ELEVATED BLOOD PRESSURE Last administered on 12/22/18 19:40; Admin Dose 10 MG; Start 11/17/18 at 10:30 Acetaminophen/ Hydrocodone Bitart ([place] (5/325)) 1 tab Q3H PRN PO MODERATE PAIN LEVEL 4-6 Last administered on 12/26/18 22:10; Admin Dose 1 TAB; Start 11/17/18 at 14:30 Albumin Human 50 ml @ 100 mls/hr WITH DIALYSIS PRN IV SBP<90 Last administered on 12/13/18 11:03; Admin Dose 100 MLS/HR; Start 11/18/18 at 14:30 Morphine Sulfate (morphine) 6 mg Q4H PRN PO SEVERE PAIN LEVEL 7-10 Last administered on 12/30/18 09:15; Admin Dose 6 MG; Start 11/18/18 at 23:00 Docusate Sodium (Colace Liquid Cup) 100 mg DAILY GTB Last administered on 12/30/18 09:10; Admin Dose 100 MG; Start 11/19/18 at 09:30 Multivit/Ca Carb/ B Cmplx/FA/Prenat (Kianna-Roque) 1 tab DAILY GTB Last administered on 12/30/18 09:10; Admin Dose 1 TAB; Start 11/24/18 at 09:00 Lansoprazole (Prevacid) 30 mg DAILY GTB Last administered on 12/30/18 09:10; Admin Dose 30 MG; Start 11/26/18 at 09:00 Acetaminophen (Tylenol Supp) 650 mg Q4H PRN IN MILD PAIN(1-3) OR TEMP>38C Last administered on 11/26/18 08:32; Admin Dose 650 MG; Start 11/26/18 at 08:30 Epoetin Michael (Epogen (Esrd)) 4,000 units MoWeFr@17 SC Last administered on 12/29/18 18:08; Admin Dose 4,000 UNITS; Start 12/06/18 at 17:00 Hydralazine HCl (Apresoline) 50 mg Q8 PO Last administered on 12/30/18 06:16; Admin Dose 50 MG; Start 12/07/18 at 22:00 Metoprolol Tartrate (Lopressor) 100 mg BID GTB Last administered on 12/30/18 09:14; Admin Dose 100 MG; Start 12/13/18 at 21:00 Aspirin (Halfprin) 81 mg DAILY PO Last administered on 12/30/18 09:10; Admin Dose 81 MG; Start 12/13/18 at 19:30 Senna (Senokot) 1 tab BID PO Last administered on 12/30/18 09:09; Admin Dose 1 TAB; Start 12/17/18 at 21:00 Acetaminophen (Tylenol Tab) 650 mg Q6H PRN PO PAIN LEVEL 1-3 OR FEVER Last administered on 12/21/18 05:01; Admin Dose 650 MG; Start 12/17/18 at 15:00 Albuterol/ Ipratropium (Duoneb) 3 ml Q6H RESP THERAPY PRN HHN sob Last administered on 12/19/18 03:51; Admin Dose 3 ML; Start 12/17/18 at 09:00 Docusate Sodium (Colace) 100 mg Q12H PRN PO CONSTIPATION Last administered on 12/21/18 05:01; Admin Dose 100 MG; Start 12/17/18 at 21:00 Ferrous Sulfate (Feosol Liquid Cup) 300 mg BID GTB Last administered on 12/30/18 09:10; Admin Dose 300 MG; Start 12/17/18 at 21:00 Guaifenesin/ Dextromethorphan (Robitussin Dm Liquid Cup) 5 ml Q4H PRN PO cough Last administered on 12/24/18 21:16; Admin Dose 5 ML; Start 12/17/18 at 18:00 Linagliptin (Tradjenta) 5 mg DAILY GTB Last administered on 12/30/18 09:13; Admin Dose 5 MG; Start 12/17/18 at 09:00 Folic Acid (Folic Acid) 1 mg DAILY GTB Last administered on 12/30/18 09:10; Admin Dose 1 MG; Start 12/18/18 at 09:00 Metoclopramide HCl (Reglan) 5 mg Q8 PRN IV VOMITTING; Start 12/20/18 at 10:00 IV Flush (NS 10 ml) 10 ml AFTER DIALYSIS CATHETER ; Start 12/22/18 at 10:00 Voriconazole (Vfend) 200 mg BID PO Last administered on 12/30/18at 09:09; Admin Dose 200 MG; Start 12/22/18 at 11:00 Magnesium Hydroxide (Milk Of Mag) 30 ml DAILY PRN PO CONSTIPATION; Start 12/22/18 at 17:00 Sodium Chloride (NS) -To prime the dialy... DIRECTED FOR HD PRN IV HD; Start 12/23/18 at 16:00 Amlodipine Besylate (Norvasc) 5 mg DAILY GTB Last administered on 12/30/18at 09:14; Admin Dose 5 MG; Start 12/25/18 at 15:30 Polyethylene Glycol (Miralax) 17 gm DAILY GTB Last administered on 12/30/18at 09:14; Admin Dose 17 GM; Start 12/27/18 at 09:00 Metoclopramide HCl (Reglan) 5 mg Q8 IV Last administered on 12/30/18at 14:36; Admin Dose 5 MG; Start 12/27/18 at 22:00 Insulin Glargine (Lantus) 4 units DAILY@2000 SC Last administered on 12/29/18at 20:36; Admin Dose 4 UNITS; Start 12/28/18 at 20:00 Miscellaneous Information 1 ea NOTE XX ; Start 12/28/18 at 19:00 Glucose (Glutose) 15 gm Q15M PRN PO DECREASED GLUCOSE; Start 12/28/18 at 19:00 Glucose (Glutose) 22.5 gm Q15M PRN PO DECREASED GLUCOSE; Start 12/28/18 at 19:00 Dextrose (D50w Syringe) 25 ml Q15M PRN IV DECREASED GLUCOSE; Start 12/28/18 at 19:00 Dextrose (D50w Syringe) 50 ml Q15M PRN IV DECREASED GLUCOSE; Start 12/28/18 at 19:00 Glucagon (Glucagen) 1 mg Q15M PRN IM DECREASED GLUCOSE; Start 12/28/18 at 19:00 Glucose (Glutose) 15 gm Q15M PRN BUCCAL DECREASED GLUCOSE; Start 12/28/18 at 19:00 JOSE RAUL ANDREWS MD Dec 30, 2018 16:40
--- NOTE | 2018-12-30 17:31 | CONS ---
Assessment/Plan Assessment/Plan Assessment/Plan (Daily) Hospital Course (Demo Recall) 83 yo female in ESRD on HD presents for melena and anemia and also found to have edematous Rt hand/wrist 1. UGIB manifested through melena and anemia -no melena noted or GI bleeding noted by nursing staff -RESOLVED 2. Anemia, acute on chronic, acute likely due to blood loss in rt hand -No evidence of active GI bleeding, consider etiology of blood loss anemia to be from hematoma in hand -Fe wnl, TIBC low, Ferritin, folate, b12 high, FOB neg -STABLE 3. ESRD on HD -Followed by nephrology 4. Hematoma of Rt hand and wrist -I and D drainage by Dr. Dean 11/17 -IMPROVED 5. Dysphagia -on tube feeds and pureed nectar for oral gratification 6. DM2 7. HTN 8. H/O diastolic dysfunction heart failure 9. S/P EGD 11/18 10. Moderate gastritis with no bleeding noted. 11. Hospital acquired pneumonia -improved 12. Yeast in urine cx -cx 12/20 12. Emesis -pt had another episode of emesis this am of just her medications after they were given. Residuals were 15cc prior to giving medications. The emesis contained only the medications no tube feeds. Gastric biopsy results: Stomach, biopsy: -- Antral and oxyntic mucosa showing minimal plasma cell infiltration and small focus of intestinal metaplasia. -- No Helicobacter pylori is identified in Giemsa stain (positive control concurrently reviewed). -- No evidence of dysplasia or malignancy. Plan: Consider GJ tube Give medications in small doses Reglan 5 mg prior to meals, low dose to due ESRD Continue present care Monitor HH closely and for active GI bleeding, Increase feeding to 45 cc/h patient is very cachectic. Patient is tolerating feeding Consultation Date/Type/Reason Admit Date/Time Nov 16, 2018 at 05:51 Initial Consult Date 11/16/18 Requesting Provider: DYLON WALLS MD Date/Time of Note DATE: 12/30/18 TIME: 17:31 24 HR Interval Summary Constitutional: improved Exam/Review of Systems Exam Vitals Vital Signs Date Temp Pulse Resp B/P (MAP) Pulse Ox O2 O2 Flow FiO2 Time Delivery Rate 12/30/18 98.0 55 16 104/42 97 Room Air 14:26 (62) 12/27/18 2.0 08:00 Intake and Output 12/29/18 12/29/18 12/30/18 1515:00 23:00 07:00 IntakeIntake Total 440 ml OutputOutput Total 200 ml 1400 ml BalanceBalance -200 ml -960 ml Constitutional: alert, oriented, well developed Psych: no complaints, nl mood/affect Head: normocephalic, atraumatic Eyes: nl conjunctiva, EOMI, nl lids, nl sclera, PERRL ENMT: nl external ears & nose, nl lips & teeth, nl nasal mucosa & septum Neck: supple, non-tender Respiratory: clear to auscultation, normal air movement Cardiovascular: regular rate and rhythm, nl pulses Gastrointestinal: soft, nl liver, spleen, non-tender Musculoskeletal: nl extremities to inspection, nl gait and stance Extremities: normal pulses 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: 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 intact, nl mental status, nl speech, nl strength Skin: nl turgor; No rash or lesions Lymph: nl lymph nodes Results Result Diagram: 12/27/18 0510 12/29/18 0530 Results 24hrs Laboratory Tests Test 12/29/18 20:31 12/30/18 09:13 Bedside Glucose 179 148 Medications Medication Current Medications IV Flush (NS 3 ml) 3 ml PER PROTOCOL IV ; Start 11/16/18 at 09:00 Ondansetron HCl (Zofran Inj) 4 mg Q6H PRN IV NAUSEA AND/OR VOMITING Last administered on 12/19/18at 05:53; Admin Dose 4 MG; Start 11/16/18 at 09:00 Hydralazine HCl (Apresoline) 10 mg Q4H PRN IV ELEVATED BLOOD PRESSURE Last administered on 12/22/18at 19:40; Admin Dose 10 MG; Start 11/17/18 at 10:30 Acetaminophen/ Hydrocodone Bitart ([place] (5/325)) 1 tab Q3H PRN PO MODERATE PAIN LEVEL 4-6 Last administered on 12/26/18at 22:10; Admin Dose 1 TAB; Start 11/17/18 at 14:30 Albumin Human 50 ml @ 100 mls/hr WITH DIALYSIS PRN IV SBP<90 Last administered on 12/13/18at 11:03; Admin Dose 100 MLS/HR; Start 11/18/18 at 14:30 Morphine Sulfate (morphine) 6 mg Q4H PRN PO SEVERE PAIN LEVEL 7-10 Last administered on 12/30/18 09:15; Admin Dose 6 MG; Start 11/18/18 at 23:00 Docusate Sodium (Colace Liquid Cup) 100 mg DAILY GTB Last administered on 12/30/18 09:10; Admin Dose 100 MG; Start 11/19/18 at 09:30 Multivit/Ca Carb/ B Cmplx/FA/Prenat (Kianna-Roque) 1 tab DAILY GTB Last administered on 12/30/18 09:10; Admin Dose 1 TAB; Start 11/24/18 at 09:00 Lansoprazole (Prevacid) 30 mg DAILY GTB Last administered on 12/30/18 09:10; Admin Dose 30 MG; Start 11/26/18 at 09:00 Acetaminophen (Tylenol Supp) 650 mg Q4H PRN ID MILD PAIN(1-3) OR TEMP>38C Last administered on 11/26/18 08:32; Admin Dose 650 MG; Start 11/26/18 at 08:30 Epoetin Michael (Epogen (Esrd)) 4,000 units MoWeFr@17 SC Last administered on 12/29/18 18:08; Admin Dose 4,000 UNITS; Start 12/06/18 at 17:00 Hydralazine HCl (Apresoline) 50 mg Q8 PO Last administered on 12/30/18 06:16; Admin Dose 50 MG; Start 12/07/18 at 22:00 Metoprolol Tartrate (Lopressor) 100 mg BID GTB Last administered on 12/30/18 09:14; Admin Dose 100 MG; Start 12/13/18 at 21:00 Aspirin (Halfprin) 81 mg DAILY PO Last administered on 12/30/18 09:10; Admin Dose 81 MG; Start 12/13/18 at 19:30 Senna (Senokot) 1 tab BID PO Last administered on 12/30/18 09:09; Admin Dose 1 TAB; Start 12/17/18 at 21:00 Acetaminophen (Tylenol Tab) 650 mg Q6H PRN PO PAIN LEVEL 1-3 OR FEVER Last administered on 12/21/18 05:01; Admin Dose 650 MG; Start 12/17/18 at 15:00 Albuterol/ Ipratropium (Duoneb) 3 ml Q6H RESP THERAPY PRN HHN sob Last administered on 12/19/18 03:51; Admin Dose 3 ML; Start 12/17/18 at 09:00 Docusate Sodium (Colace) 100 mg Q12H PRN PO CONSTIPATION Last administered on 12/21/18 05:01; Admin Dose 100 MG; Start 12/17/18 at 21:00 Ferrous Sulfate (Feosol Liquid Cup) 300 mg BID GTB Last administered on 12/30/18 09:10; Admin Dose 300 MG; Start 12/17/18 at 21:00 Guaifenesin/ Dextromethorphan (Robitussin Dm Liquid Cup) 5 ml Q4H PRN PO cough Last administered on 12/24/18 21:16; Admin Dose 5 ML; Start 12/17/18 at 18:00 Linagliptin (Tradjenta) 5 mg DAILY GTB Last administered on 12/30/18 09:13; Admin Dose 5 MG; Start 12/17/18 at 09:00 Folic Acid (Folic Acid) 1 mg DAILY GTB Last administered on 12/30/18 09:10; Admin Dose 1 MG; Start 12/18/18 at 09:00 Metoclopramide HCl (Reglan) 5 mg Q8 PRN IV VOMITTING; Start 12/20/18 at 10:00 IV Flush (NS 10 ml) 10 ml AFTER DIALYSIS CATHETER ; Start 12/22/18 at 10:00 Voriconazole (Vfend) 200 mg BID PO Last administered on 12/30/18 09:09; Admin Dose 200 MG; Start 12/22/18 at 11:00 Magnesium Hydroxide (Milk Of Mag) 30 ml DAILY PRN PO CONSTIPATION; Start 12/22/18 at 17:00 Sodium Chloride (NS) -To prime the dialy... DIRECTED FOR HD PRN IV HD; Start 12/23/18 at 16:00 Amlodipine Besylate (Norvasc) 5 mg DAILY GTB Last administered on 12/30/18 09:14; Admin Dose 5 MG; Start 12/25/18 at 15:30 Polyethylene Glycol (Miralax) 17 gm DAILY GTB Last administered on 12/30/18 09:14; Admin Dose 17 GM; Start 12/27/18 at 09:00 Metoclopramide HCl (Reglan) 5 mg Q8 IV Last administered on 12/30/18at 14:36; Admin Dose 5 MG; Start 12/27/18 at 22:00 Insulin Glargine (Lantus) 4 units DAILY@2000 SC Last administered on 12/29/18at 20:36; Admin Dose 4 UNITS; Start 12/28/18 at 20:00 Miscellaneous Information 1 ea NOTE XX ; Start 12/28/18 at 19:00 Glucose (Glutose) 15 gm Q15M PRN PO DECREASED GLUCOSE; Start 12/28/18 at 19:00 Glucose (Glutose) 22.5 gm Q15M PRN PO DECREASED GLUCOSE; Start 12/28/18 at 19:00 Dextrose (D50w Syringe) 25 ml Q15M PRN IV DECREASED GLUCOSE; Start 12/28/18 at 19:00 Dextrose (D50w Syringe) 50 ml Q15M PRN IV DECREASED GLUCOSE; Start 12/28/18 at 19:00 Glucagon (Glucagen) 1 mg Q15M PRN IM DECREASED GLUCOSE; Start 12/28/18 at 19:00 Glucose (Glutose) 15 gm Q15M PRN BUCCAL DECREASED GLUCOSE; Start 12/28/18 at 19:00 CHRISS WELCH MD Dec 30, 2018 17:31
[2018-12-30 20:00] VITALS: BP 162/76; PULSE 66; RESP 18
[2018-12-30] MEDS: INSULIN GLARGINE [LANTus] (100 UNITS/ML) SYG SC SCH (20:16)
[2018-12-31] VITALS (18 sets, daily range): BP systolic 88–148; BP diastolic 36–70; PULSE 68–85; RESP 18
[2018-12-31] MEDS ORDERED: ALBUMIN HUMAN 25% 100 ML IV ONE (05:30)
[2018-12-31] MEDS: METOCLOPRAMIDE 10 MG INJ IV SCH ×3 (05:37→21:56)
[2018-12-31] MEDS: DOCUSATE SODIUM 10 MG/ML (10ML CUP) GTB SCH (08:59)
[2018-12-31] MEDS: VORICONAZOLE 200 MG TAB PO SCH ×2 (08:59→20:32)
[2018-12-31] MEDS: LINAGLIPTIN 5 MG TABLET GTB SCH (08:59)
[2018-12-31] MEDS: FOLIC ACID 1 MG TAB GTB SCH (08:59)
[2018-12-31] MEDS: ASPIRIN (EC) 81 MG TAB PO SCH (08:59)
[2018-12-31] MEDS: SENNA TAB PO SCH ×2 (08:59→20:32)
[2018-12-31] MEDS: FERROUS SULFATE 60 MG/ML 5ML CUP GTB SCH ×2 (08:59→20:31)
[2018-12-31] MEDS: MULTIVIT/CA CARB/B CMPLX/FA TAB GTB SCH (08:59)
[2018-12-31] MEDS: LANSOPRAZOLE 30 MG CAP GTB SCH (08:59)
[2018-12-31] MEDS: POLYETHYLENE GLYCOL 17 GM PACKET GTB SCH (08:59)
[2018-12-31] MEDS: AMLODIPINE 5 MG TAB GTB SCH (09:00)
[2018-12-31] MEDS: METOPROLOL 50 MG TAB GTB SCH ×2 (09:00→20:33)
--- NOTE | 2018-12-31 10:06 | CONS ---
Assessment/Plan Assessment/Plan Assessment/Plan (Daily) Assessment/Plan Assessment/Plan (Daily) Hospital Course (Demo Recall) 83 yo female in ESRD on HD presents for melena and anemia and also found to have edematous Rt hand/wrist 1. UGIB manifested through melena and anemia -no melena noted or GI bleeding noted by nursing staff -RESOLVED 2. Anemia, acute on chronic, acute likely due to blood loss in rt hand -No evidence of active GI bleeding, consider etiology of blood loss anemia to be from hematoma in hand -Fe wnl, TIBC low, Ferritin, folate, b12 high, FOB neg -STABLE 3. ESRD on HD -Followed by nephrology 4. Hematoma of Rt hand and wrist -I and D drainage by Dr. Dean 11/17 -IMPROVED 5. Dysphagia -on tube feeds and pureed nectar for oral gratification 6. DM2 7. HTN 8. H/O diastolic dysfunction heart failure 9. S/P EGD 11/18 10. Moderate gastritis with no bleeding noted. 11. Hospital acquired pneumonia -improved 12. Yeast in urine cx -cx 12/20 12. Emesis -pt had another episode of emesis this am of just her medications after they were given. Residuals were 15cc prior to giving medications. The emesis c ontained only the medications no tube feeds. Gastric biopsy results: Stomach, biopsy: -- Antral and oxyntic mucosa showing minimal plasma cell infiltration and small focus of intestinal metaplasia. -- No Helicobacter pylori is identified in Giemsa stain (positive control concurrently reviewed). -- No evidence of dysplasia or malignancy. Plan: Consider GJ tube if unable to tolerate feeding and there is evidence of aspiration Give medications in small doses Reglan 5 mg prior to meals, low dose to due ESRD Continue present care Monitor HH closely and for active GI bleeding, Increase feeding to 45 cc/h patient is very cachectic. Patient is tolerating feeding Consultation Date/Type/Reason Admit Date/Time Nov 16, 2018 at 05:51 Initial Consult Date 11/16/18 Requesting Provider: DYLON WALLS MD Date/Time of Note DATE: 12/31/18 TIME: 10:05 24 HR Interval Summary Constitutional: no complaints, disoriented Exam/Review of Systems Exam Vitals Vital Signs Date Temp Pulse Resp B/P (MAP) Pulse Ox O2 O2 Flow FiO2 Time Delivery Rate 12/31/18 98.0 76 18 128/56 96 Room Air 08:16 (80) 12/27/18 2.0 08:00 Intake and Output 12/30/18 12/30/18 12/31/18 1515:00 23:00 07:00 IntakeIntake Total 440 ml BalanceBalance 440 ml Constitutional: frail Head: normocephalic, atraumatic Eyes: nl conjunctiva, EOMI, nl lids, nl sclera, PERRL Neck: supple, non-tender Cardiovascular: regular rate and rhythm 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: confused Results Result Diagram: 12/31/18 0547 12/31/18 0547 Results 24hrs Laboratory Tests Test 12/30/18 20:13 12/31/18 05:47 12/31/18 08:58 Bedside Glucose 147 193 White Blood Count 12.7 #H Red Blood Count 3.39 L Hemoglobin 8.9 L Hematocrit 28.4 L Mean Corpuscular Volume 83.8 Mean Corpuscular Hemoglobin 26.3 L Mean Corpuscular Hemoglobin Concent 31.3 L Red Cell Distribution Width 17.0 H Platelet Count 247 # Mean Platelet Volume 12.8 H Immature Granulocytes % 0.600 H Neutrophils % 71.5 Lymphocytes % 9.7 L Monocytes % 11.6 H Eosinophils % 6.1 Basophils % 0.5 Nucleated Red Blood Cells % 0.3 H Immature Granulocytes # 0.080 H Neutrophils # 9.1 H Lymphocytes # 1.2 Monocytes # 1.5 H Eosinophils # 0.8 H Basophils # 0.1 Nucleated Red Blood Cells # 0.0 Sodium Level 136 Potassium Level 4.7 Chloride Level 97 Carbon Dioxide Level 28 Anion Gap 11 Blood Urea Nitrogen 75 H Creatinine 2.28 H Est Glomerular Filtrat Rate mL/min Glucose Level 102 Calcium Level 9.1 Phosphorus Level 6.4 H Magnesium Level 3.0 H Medications Medication Current Medications IV Flush (NS 3 ml) 3 ml PER PROTOCOL IV ; Start 11/16/18 at 09:00 Ondansetron HCl (Zofran Inj) 4 mg Q6H PRN IV NAUSEA AND/OR VOMITING Last a dministered on 12/19/18at 05:53; Admin Dose 4 MG; Start 11/16/18 at 09:00 Hydralazine HCl (Apresoline) 10 mg Q4H PRN IV ELEVATED BLOOD PRESSURE Last administered on 12/22/18at 19:40; Admin Dose 10 MG; Start 11/17/18 at 10:30 Acetaminophen/ Hydrocodone Bitart ([place] (5/325)) 1 tab Q3H PRN PO MODERATE P AIN LEVEL 4-6 Last administered on 12/26/18 22:10; Admin Dose 1 TAB; Start 11/17/18 at 14:30 Albumin Human 50 ml @ 100 mls/hr WITH DIALYSIS PRN IV SBP<90 Last administered on 12/13/18 11:03; Admin Dose 100 MLS/HR; Start 11/18/18 at 14:30 Morphine Sulfate (morphine) 6 mg Q4H PRN PO SEVERE PAIN LEVEL 7-10 Last administered on 12/30/18 09:15; Admin Dose 6 MG; Start 11/18/18 at 23:00 Docusate Sodium (Colace Liquid Cup) 100 mg DAILY GTB Last administered on 12/31/18 08:59; Admin Dose 100 MG; Start 11/19/18 at 09:30 Multivit/Ca Carb/ B Cmplx/FA/Prenat ([place]ian[place]-Roque) 1 tab DAILY GTB Last administ ered on 12/31/18 08:59; Admin Dose 1 TAB; Start 11/24/18 at 09:00 Lansoprazole (Prevacid) 30 mg DAILY GTB Last administered on 12/31/18 08:59; Admin Dose 30 MG; Start 11/26/18 at 09:00 Acetaminophen (Tylenol Supp) 650 mg Q4H PRN ND MILD PAIN(1-3) OR TEMP>38C Last administered on 11/26/18 08:32; Admin Dose 650 MG; Start 11/26/18 at 08:30 Epoetin Michael (Epogen (Esrd)) 4,000 units MoWeFr@17 SC Last administered on 12/29/18 18:08; Admin Dose 4,000 UNITS; Start 12/06/18 at 17:00 Hydralazine HCl (Apresoline) 50 mg Q8 PO Last administered on 12/31/18 05:37; Admin Dose 50 MG; Start 12/07/18 at 22:00 Metoprolol Tartrate (Lopressor) 100 mg BID GTB Last administered on 12/30/18 20:18; Admin Dose 100 MG; Start 12/13/18 at 21:00 Aspirin (Halfprin) 81 mg DAILY PO Last administered on 12/31/18 08:59; Admin Dose 81 MG; Start 12/13/18 at 19:30 Senna (Senokot) 1 tab BID PO Last administered on 12/31/18 08:59; Admin Dose 1 TAB; Start 12/17/18 at 21:00 Acetaminophen (Tylenol Tab) 650 mg Q6H PRN PO PAIN LEVEL 1-3 OR FEVER Last administered on 12/21/18 05:01; Admin Dose 650 MG; Start 12/17/18 at 15:00 Albuterol/ Ipratropium (Duoneb) 3 ml Q6H RESP THERAPY PRN HHN sob Last administered on 12/19/18 03:51; Admin Dose 3 ML; Start 12/17/18 at 09:00 Docusate Sodium (Colace) 100 mg Q12H PRN PO CONSTIPATION Last administered on 12/21/18 05:01; Admin Dose 100 MG; Start 12/17/18 at 21:00 Ferrous Sulfate (Feosol Liquid Cup) 300 mg BID GTB Last administered on 12/31/18 08:59; Admin Dose 300 MG; Start 12/17/18 at 21:00 Guaifenesin/ Dextromethorphan (Robitussin Dm Liquid Cup) 5 ml Q4H PRN PO cough Last administered on 12/24/18 21:16; Admin Dose 5 ML; Start 12/17/18 at 18:00 Linagliptin (Tradjenta) 5 mg DAILY GTB Last administered on 12/31/18 08:59; Admin Dose 5 MG; Start 12/17/18 at 09:00 Folic Acid (Folic Acid) 1 mg DAILY GTB Last administered on 12/31/18 08:59; Admin Dose 1 MG; Start 12/18/18 at 09:00 Metoclopramide HCl (Reglan) 5 mg Q8 PRN IV VOMITTING; Start 12/20/18 at 10:00 IV Flush (NS 10 ml) 10 ml AFTER DIALYSIS CATHETER ; Start 12/22/18 at 10:00 Voriconazole (Vfend) 200 mg BID PO Last administered on 12/31/18 08:59; Admin Dose 200 MG; Start 12/22/18 at 11:00 Magnesium Hydroxide (Milk Of Mag) 30 ml DAILY PRN PO CONSTIPATION; Start 12/22/18 at 17:00 Sodium Chloride (NS) -To prime the dialy... DIRECTED FOR HD PRN IV HD; Start 12/23/18 at 16:00 Amlodipine Besylate (Norvasc) 5 mg DAILY GTB Last administered on 12/30/18at 09:14; Admin Dose 5 MG; Start 12/25/18 at 15:30 Polyethylene Glycol (Miralax) 17 gm DAILY GTB Last administered on 12/31/18at 08:59; Admin Dose 17 GM; Start 12/27/18 at 09:00 Metoclopramide HCl (Reglan) 5 mg Q8 IV Last administered on 12/31/18at 05:37; Admin Dose 5 MG; Start 12/27/18 at 22:00 Insulin Glargine (Lantus) 4 units DAILY@2000 SC Last administered on 12/30/18at 20:16; Admin Dose 4 UNITS; Start 12/28/18 at 20:00 Miscellaneous Information 1 ea NOTE XX ; Start 12/28/18 at 19:00 Glucose (Glutose) 15 gm Q15M PRN PO DECREASED GLUCOSE; Start 12/28/18 at 19:00 Glucose (Glutose) 22.5 gm Q15M PRN PO DECREASED GLUCOSE; Start 12/28/18 at 19:00 Dextrose (D50w Syringe) 25 ml Q15M PRN IV DECREASED GLUCOSE; Start 12/28/18 at 19:00 Dextrose (D50w Syringe) 50 ml Q15M PRN IV DECREASED GLUCOSE; Start 12/28/18 at 19:00 Glucagon (Glucagen) 1 mg Q15M PRN IM DECREASED GLUCOSE; Start 12/28/18 at 19:00 Glucose (Glutose) 15 gm Q15M PRN BUCCAL DECREASED GLUCOSE; Start 12/28/18 at 19:00 CHRISS WELCH MD Dec 31, 2018 10:05
--- NOTE | 2018-12-31 11:08 | CONS ---
Assessment/Plan Assessment/Plan Hospital Course (Demo Recall) 1. End-stage renal disease on hemodialysis. 2. Gastrointestinal bleed with melena, resolved. 3. Hypertension, controlled. 4. Diabetes mellitus type II controlled. 5. Right hand swelling, s/p I and D on 11/17/18 6. History of falls. 7. Vascular dementia. 8. History of sepsis with VRE. 9. Dysphagia, status post G-tube. 10. History of hip fracture. 11. Thrombocytopenia. 12. Atherosclerotic heart disease. 13. Pneumonia left side, resolved 14. Anemia 15. Fungemia. 16. UTI Assessment/Plan (Daily) - Hd MWF, Hd today - cw with permacath -avoid nephrotoxic drugs -HD MWFr -c/w epogen - Aspiration precautions Consultation Date/Type/Reason Admit Date/Time Nov 16, 2018 at 05:51 Initial Consult Date 11/16/18 Type of Consult nephrology Requesting Provider: DYLON WALLS MD Date/Time of Note DATE: 12/31/18 TIME: 11:07 24 HR Interval Summary Constitutional: no complaints Exam/Review of Systems Exam Vitals Vital Signs Date Temp Pulse Resp B/P (MAP) Pulse Ox O2 O2 Flow FiO2 Time Delivery Rate 12/31/18 98.0 76 18 128/56 96 Room Air 08:16 (80) 12/27/18 2.0 08:00 Intake and Output 12/30/18 12/30/18 12/31/18 1515:00 23:00 07:00 IntakeIntake Total 440 ml BalanceBalance 440 ml Constitutional: alert, frail Respiratory: clear to auscultation Cardiovascular: regular rate and rhythm Gastrointestinal: soft, other (GT) Results Result Diagram: 12/31/18 0547 12/31/18 0547 Results 24hrs Laboratory Tests Test 12/30/18 20:13 12/31/18 05:47 12/31/18 08:58 Bedside Glucose 147 193 White Blood Count 12.7 #H Red Blood Count 3.39 L Hemoglobin 8.9 L Hematocrit 28.4 L Mean Corpuscular Volume 83.8 Mean Corpuscular Hemoglobin 26.3 L Mean Corpuscular Hemoglobin Concent 31.3 L Red Cell Distribution Width 17.0 H Platelet Count 247 # Mean Platelet Volume 12.8 H Immature Granulocytes % 0.600 H Neutrophils % 71.5 Lymphocytes % 9.7 L Monocytes % 11.6 H Eosinophils % 6.1 Basophils % 0.5 Nucleated Red Blood Cells % 0.3 H Immature Granulocytes # 0.080 H Neutrophils # 9.1 H Lymphocytes # 1.2 Monocytes # 1.5 H Eosinophils # 0.8 H Basophils # 0.1 Nucleated Red Blood Cells # 0.0 Sodium Level 136 Potassium Level 4.7 Chloride Level 97 Carbon Dioxide Level 28 Anion Gap 11 Blood Urea Nitrogen 75 H Creatinine 2.28 H Est Glomerular Filtrat Rate mL/min Glucose Level 102 Calcium Level 9.1 Phosphorus Level 6.4 H Magnesium Level 3.0 H Medications Medication Current Medications IV Flush (NS 3 ml) 3 ml PER PROTOCOL IV ; Start 11/16/18 at 09:00 Ondansetron HCl (Zofran Inj) 4 mg Q6H PRN IV NAUSEA AND/OR VOMITING Last administered on 12/19/18 05:53; Admin Dose 4 MG; Start 11/16/18 at 09:00 Hydralazine HCl (Apresoline) 10 mg Q4H PRN IV ELEVATED BLOOD PRESSURE Last administered on 12/22/18 19:40; Admin Dose 10 MG; Start 11/17/18 at 10:30 Acetaminophen/ Hydrocodone Bitart ([place] (5/325)) 1 tab Q3H PRN PO MODERATE PAIN LEVEL 4-6 Last administered on 12/26/18 22:10; Admin Dose 1 TAB; Start 11/17/18 at 14:30 Albumin Human 50 ml @ 100 mls/hr WITH DIALYSIS PRN IV SBP<90 Last administered on 12/13/18 11:03; Admin Dose 100 MLS/HR; Start 11/18/18 at 14:30 Morphine Sulfate (morphine) 6 mg Q4H PRN PO SEVERE PAIN LEVEL 7-10 Last administered on 12/30/18 09:15; Admin Dose 6 MG; Start 11/18/18 at 23:00 Docusate Sodium (Colace Liquid Cup) 100 mg DAILY GTB Last administered on 12/31/18 08:59; Admin Dose 100 MG; Start 11/19/18 at 09:30 Multivit/Ca Carb/ B Cmplx/FA/Prenat (Kianna-Roque) 1 tab DAILY GTB Last administered on 12/31/18 08:59; Admin Dose 1 TAB; Start 11/24/18 at 09:00 Lansoprazole (Prevacid) 30 mg DAILY GTB Last administered on 12/31/18 08:59; Admin Dose 30 MG; Start 11/26/18 at 09:00 Acetaminophen (Tylenol Supp) 650 mg Q4H PRN [place] MILD PAIN(1-3) OR TEMP>38C Last administered on 11/26/18 08:32; Admin Dose 650 MG; Start 11/26/18 at 08:30 Epoetin Michael (Epogen (Esrd)) 4,000 units MoWeFr@17 SC Last administered on 12/29/18 18:08; Admin Dose 4,000 UNITS; Start 12/06/18 at 17:00 Hydralazine HCl (Apresoline) 50 mg Q8 PO Last administered on 12/31/18 05:37; Admin Dose 50 MG; Start 12/07/18 at 22:00 Metoprolol Tartrate (Lopressor) 100 mg BID GTB Last administered on 12/30/18 20:18; Admin Dose 100 MG; Start 12/13/18 at 21:00 Aspirin (Halfprin) 81 mg DAILY PO Last administered on 12/31/18 08:59; Admin Dose 81 MG; Start 12/13/18 at 19:30 Senna (Senokot) 1 tab BID PO Last administered on 12/31/18 08:59; Admin Dose 1 TAB; Start 12/17/18 at 21:00 Acetaminophen (Tylenol Tab) 650 mg Q6H PRN PO PAIN LEVEL 1-3 OR FEVER Last administered on 12/21/18 05:01; Admin Dose 650 MG; Start 12/17/18 at 15:00 Albuterol/ Ipratropium (Duoneb) 3 ml Q6H RESP THERAPY PRN HHN sob Last administered on 12/19/18 03:51; Admin Dose 3 ML; Start 12/17/18 at 09:00 Docusate Sodium (Colace) 100 mg Q12H PRN PO CONSTIPATION Last administered on 12/21/18 05:01; Admin Dose 100 MG; Start 12/17/18 at 21:00 Ferrous Sulfate (Feosol Liquid Cup) 300 mg BID GTB Last administered on 12/31/18 08:59; Admin Dose 300 MG; Start 12/17/18 at 21:00 Guaifenesin/ Dextromethorphan (Robitussin Dm Liquid Cup) 5 ml Q4H PRN PO cough Last administered on 12/24/18 21:16; Admin Dose 5 ML; Start 12/17/18 at 18:00 Linagliptin (Tradjenta) 5 mg DAILY GTB Last administered on 12/31/18 08:59; Admin Dose 5 MG; Start 12/17/18 at 09:00 Folic Acid (Folic Acid) 1 mg DAILY GTB Last administered on 12/31/18 08:59; Admin Dose 1 MG; Start 12/18/18 at 09:00 Metoclopramide HCl (Reglan) 5 mg Q8 PRN IV VOMITTING; Start 12/20/18 at 10:00 IV Flush (NS 10 ml) 10 ml AFTER DIALYSIS CATHETER ; Start 12/22/18 at 10:00 Voriconazole (Vfend) 200 mg BID PO Last administered on 12/31/18 08:59; Admin Dose 200 MG; Start 12/22/18 at 11:00 Magnesium Hydroxide (Milk Of Mag) 30 ml DAILY PRN PO CONSTIPATION; Start 12/22/18 at 17:00 Sodium Chloride (NS) -To prime the dialy... DIRECTED FOR HD PRN IV HD; Start 12/23/18 at 16:00 Amlodipine Besylate (Norvasc) 5 mg DAILY GTB Last administered on 12/30/18 09:14; Admin Dose 5 MG; Start 12/25/18 at 15:30 Polyethylene Glycol (Miralax) 17 gm DAILY GTB Last administered on 12/31/18 08:59; Admin Dose 17 GM; Start 12/27/18 at 09:00 Metoclopramide HCl (Reglan) 5 mg Q8 IV Last administered on 12/31/18 05:37; Admin Dose 5 MG; Start 12/27/18 at 22:00 Insulin Glargine (Lantus) 4 units DAILY@2000 SC Last administered on 12/30/18 20:16; Admin Dose 4 UNITS; Start 12/28/18 at 20:00 Miscellaneous Information 1 ea NOTE XX ; Start 12/28/18 at 19:00 Glucose (Glutose) 15 gm Q15M PRN PO DECREASED GLUCOSE; Start 12/28/18 at 19:00 Glucose (Glutose) 22.5 gm Q15M PRN PO DECREASED GLUCOSE; Start 12/28/18 at 19:00 Dextrose (D50w Syringe) 25 ml Q15M PRN IV DECREASED GLUCOSE; Start 12/28/18 at 19:00 Dextrose (D50w Syringe) 50 ml Q15M PRN IV DECREASED GLUCOSE; Start 12/28/18 at 19:00 Glucagon (Glucagen) 1 mg Q15M PRN IM DECREASED GLUCOSE; Start 12/28/18 at 19:00 Glucose (Glutose) 15 gm Q15M PRN BUCCAL DECREASED GLUCOSE; Start 12/28/18 at 19:00 FLAVIO CLAYTON Dec 31, 2018 11:08
[2018-12-31] MEDS: ONDANSETRON 4 MG INJ IV PRN (11:45)
--- NOTE | 2018-12-31 12:21 | CONS ---
Assessment/Plan Assessment/Plan Hospital Course (Demo Recall) ID PROGRESS NOTE CURRENT ABX: DAY #=> VFEND #9 s/p Merrem # + Cancidas 12/31/18 0547 12/31/18 0547 24H INTERVAL SUMMARY * Increased lethargy, WBC elevated -- per RN she had episode of emesis -- suspect recurrent ASPIRATION EVENT * No fevers, VSS, without dyspnea on room air * Indwelling: Left chest PermCath, PEG MICRO * 12/20/18 URINE Cx (+) Glabrata URINE CULTURE Final Organism 1 TYREE GLABRATA COLONY COUNT 30,000 - 40,000 CFU/ml * 12/20/18 BCx (-) * 12/18/18 BCx (-) * 12/06/18 URINE Cx (+) Glabrata * 12/03/18 BCx (-) * 12/01/18 BCx (-) * 11/29/18 BCx (+) Glabrata * 11/24/18 BCX (+) Glabrata = fungemia PHYSICAL EXAMINATION: GENERAL: Afebrile, VSS, HEENT: AT, NC, anicteric NECK: Supple, trach CHEST: Equal chest rise bilaterally, without dyspnea on observation HEART: Pulse RRR ABDOMEN: Soft / NT EXTREMITIES: Warm, dry SKIN: No rash, no diaphoresis ID ASSESSMENT 83 yo F w/ DEMENTIA admit with: 1. NEW ISSUE: (+)SIRS 12/31/18 w/Increased lethargy, WBC elevated 12.7-- per RN she had episode of emesis -- suspect recurrent ASPIRATION EVENT 2. Recurrent ASPIRATION PNEUMONITIS event 12/30/18 3. Recurrent C.GLABRATA UTIs == on 3 week course of VFEND * s/p FUNGEMIA == secondary to GLABRATA UTI => RESOLVED 4. Status post VRE bacteremia, status post new Pcath => RESOLVED 5. End-stage renal disease, hemodialysis dependent 6. Diabetes 7. Anemia 8. Failure to thrive - Frail cachectic w/dementia (-)MRSA Nares ABX ALLERGIES: KNDA INVASIVES: PIV, Left chest PermCath CURRENT ABX: DAY #=> VFEND #9 + Start Merrem #1 s/p Merrem # + Cancidas ID RECOMMENDATIONS/PLAN: . NEW ISSUE: (+)SIRS 12/31/18 w/Increased lethargy, WBC elevated 12.7-- per RN she had episode of emesis -- suspect recurrent ASPIRATION EVENT * Will start Merrem 500mg IV Q12 for HCAP ASP PNA Continue on Vfend prolonged course due to recurrent symptomatic Glabrata UTI and hx of FUNGEMIA . Consultation Date/Type/Reason Admit Date/Time Nov 16, 2018 at 05:51 Initial Consult Date 11/16/18 Requesting Provider: DYLON WALLS MD Date/Time of Note DATE: 12/31/18 TIME: 12:16 Exam/Review of Systems Exam Vitals Vital Signs Date Temp Pulse Resp B/P (MAP) Pulse Ox O2 O2 Flow FiO2 Time Delivery Rate 12/31/18 98.0 76 18 128/56 96 Room Air 08:16 (80) 12/27/18 2.0 08:00 Intake and Output 12/30/18 12/30/18 12/31/18 1414:59 22:59 06:59 IntakeIntake Total 440 ml BalanceBalance 440 ml Results Result Diagram: 12/31/18 0547 12/31/18 0547 Results 24hrs Laboratory Tests Test 12/30/18 20:13 12/31/18 05:47 12/31/18 08:58 Bedside Glucose 147 193 White Blood Count 12.7 #H Red Blood Count 3.39 L Hemoglobin 8.9 L Hematocrit 28.4 L Mean Corpuscular Volume 83.8 Mean Corpuscular Hemoglobin 26.3 L Mean Corpuscular Hemoglobin Concent 31.3 L Red Cell Distribution Width 17.0 H Platelet Count 247 # Mean Platelet Volume 12.8 H Immature Granulocytes % 0.600 H Neutrophils % 71.5 Lymphocytes % 9.7 L Monocytes % 11.6 H Eosinophils % 6.1 Basophils % 0.5 Nucleated Red Blood Cells % 0.3 H Immature Granulocytes # 0.080 H Neutrophils # 9.1 H Lymphocytes # 1.2 Monocytes # 1.5 H Eosinophils # 0.8 H Basophils # 0.1 Nucleated Red Blood Cells # 0.0 Sodium Level 136 Potassium Level 4.7 Chloride Level 97 Carbon Dioxide Level 28 Anion Gap 11 Blood Urea Nitrogen 75 H Creatinine 2.28 H Est Glomerular Filtrat Rate mL/min Glucose Level 102 Calcium Level 9.1 Phosphorus Level 6.4 H Magnesium Level 3.0 H Medications Medication Current Medications IV Flush (NS 3 ml) 3 ml PER PROTOCOL IV ; Start 11/16/18 at 09:00 Ondansetron HCl (Zofran Inj) 4 mg Q6H PRN IV NAUSEA AND/OR VOMITING Last administered on 12/31/18 11:45; Admin Dose 4 MG; Start 11/16/18 at 09:00 Hydralazine HCl (Apresoline) 10 mg Q4H PRN IV ELEVATED BLOOD PRESSURE Last administered on 12/22/18 19:40; Admin Dose 10 MG; Start 11/17/18 at 10:30 Acetaminophen/ Hydrocodone Bitart ([place] (5/325)) 1 tab Q3H PRN PO MODERATE PAIN LEVEL 4-6 Last administered on 12/26/18 22:10; Admin Dose 1 TAB; Start 11/17/18 at 14:30 Albumin Human 50 ml @ 100 mls/hr WITH DIALYSIS PRN IV SBP<90 Last administered on 12/13/18 11:03; Admin Dose 100 MLS/HR; Start 11/18/18 at 14:30 Morphine Sulfate (morphine) 6 mg Q4H PRN PO SEVERE PAIN LEVEL 7-10 Last administered on 12/30/18 09:15; Admin Dose 6 MG; Start 11/18/18 at 23:00 Docusate Sodium (Colace Liquid Cup) 100 mg DAILY GTB Last administered on 12/31/18 08:59; Admin Dose 100 MG; Start 11/19/18 at 09:30 Multivit/Ca Carb/ B Cmplx/FA/Prenat (Kianna-Roque) 1 tab DAILY GTB Last administered on 12/31/18 08:59; Admin Dose 1 TAB; Start 11/24/18 at 09:00 Lansoprazole (Prevacid) 30 mg DAILY GTB Last administered on 12/31/18 08:59; Admin Dose 30 MG; Start 11/26/18 at 09:00 Acetaminophen (Tylenol Supp) 650 mg Q4H PRN [place] MILD PAIN(1-3) OR TEMP>38C Last administered on 11/26/18 08:32; Admin Dose 650 MG; Start 11/26/18 at 08:30 Epoetin Michael (Epogen (Esrd)) 4,000 units MoWeFr@17 SC Last administered on 12/29/18 18:08; Admin Dose 4,000 UNITS; Start 12/06/18 at 17:00 Hydralazine HCl (Apresoline) 50 mg Q8 PO Last administered on 12/31/18 05:37; Admin Dose 50 MG; Start 12/07/18 at 22:00 Metoprolol Tartrate (Lopressor) 100 mg BID GTB Last administered on 12/30/18 20:18; Admin Dose 100 MG; Start 12/13/18 at 21:00 Aspirin (Halfprin) 81 mg DAILY PO Last administered on 12/31/18 08:59; Admin Dose 81 MG; Start 12/13/18 at 19:30 Senna (Senokot) 1 tab BID PO Last administered on 12/31/18 08:59; Admin Dose 1 TAB; Start 12/17/18 at 21:00 Acetaminophen (Tylenol Tab) 650 mg Q6H PRN PO PAIN LEVEL 1-3 OR FEVER Last administered on 12/21/18 05:01; Admin Dose 650 MG; Start 12/17/18 at 15:00 Albuterol/ Ipratropium (Duoneb) 3 ml Q6H RESP THERAPY PRN HHN sob Last administered on 12/19/18 03:51; Admin Dose 3 ML; Start 12/17/18 at 09:00 Docusate Sodium (Colace) 100 mg Q12H PRN PO CONSTIPATION Last administered on 12/21/18 05:01; Admin Dose 100 MG; Start 12/17/18 at 21:00 Ferrous Sulfate (Feosol Liquid Cup) 300 mg BID GTB Last administered on 12/31/18 08:59; Admin Dose 300 MG; Start 12/17/18 at 21:00 Guaifenesin/ Dextromethorphan (Robitussin Dm Liquid Cup) 5 ml Q4H PRN PO cough Last administered on 12/24/18 21:16; Admin Dose 5 ML; Start 12/17/18 at 18:00 Linagliptin (Tradjenta) 5 mg DAILY GTB Last administered on 12/31/18 08:59; Admin Dose 5 MG; Start 12/17/18 at 09:00 Folic Acid (Folic Acid) 1 mg DAILY GTB Last administered on 12/31/18 08:59; Admin Dose 1 MG; Start 12/18/18 at 09:00 Metoclopramide HCl (Reglan) 5 mg Q8 PRN IV VOMITTING; Start 12/20/18 at 10:00 IV Flush (NS 10 ml) 10 ml AFTER DIALYSIS CATHETER ; Start 12/22/18 at 10:00 Voriconazole (Vfend) 200 mg BID PO Last administered on 12/31/18at 08:59; Admin Dose 200 MG; Start 12/22/18 at 11:00 Magnesium Hydroxide (Milk Of Mag) 30 ml DAILY PRN PO CONSTIPATION; Start 12/22/18 at 17:00 Sodium Chloride (NS) -To prime the dialy... DIRECTED FOR HD PRN IV HD; Start 12/23/18 at 16:00 Amlodipine Besylate (Norvasc) 5 mg DAILY GTB Last administered on 12/30/18at 09:14; Admin Dose 5 MG; Start 12/25/18 at 15:30 Polyethylene Glycol (Miralax) 17 gm DAILY GTB Last administered on 12/31/18at 08:59; Admin Dose 17 GM; Start 12/27/18 at 09:00 Metoclopramide HCl (Reglan) 5 mg Q8 IV Last administered on 12/31/18at 05:37; Admin Dose 5 MG; Start 12/27/18 at 22:00 Insulin Glargine (Lantus) 4 units DAILY@2000 SC Last administered on 12/30/18at 20:16; Admin Dose 4 UNITS; Start 12/28/18 at 20:00 Miscellaneous Information 1 ea NOTE XX ; Start 12/28/18 at 19:00 Glucose (Glutose) 15 gm Q15M PRN PO DECREASED GLUCOSE; Start 12/28/18 at 19:00 Glucose (Glutose) 22.5 gm Q15M PRN PO DECREASED GLUCOSE; Start 12/28/18 at 19:0 0 Dextrose (D50w Syringe) 25 ml Q15M PRN IV DECREASED GLUCOSE; Start 12/28/18 at 19:00 Dextrose (D50w Syringe) 50 ml Q15M PRN IV DECREASED GLUCOSE; Start 12/28/18 at 19:00 Glucagon (Glucagen) 1 mg Q15M PRN IM DECREASED GLUCOSE; Start 12/28/18 at 19:00 Glucose (Glutose) 15 gm Q15M PRN BUCCAL DECREASED GLUCOSE; Start 12/28/18 at 19:00 Sevelamer Carbonate (Renvela) 1.6 gm TID NGT ; Start 12/31/18 at 13:00 SEVERO GARCIA NP Dec 31, 2018 12:21
[2018-12-31] MEDS: SEVELAMER CARBONATE 0.8 GM PKT NGT SCH ×2 (13:56→20:32)
[2018-12-31] MEDS ORDERED: MEROPENEM 500MG/50 ML (PMX) 50 ML IVPB SCH (15:00)
--- NOTE | 2018-12-31 15:07 | PN ---
DATE: 12/31/2018 SUBJECTIVE: The patient was seen, appears more lethargic. White count increased to 12.7. My order was to place her on 30 mL of feeding per dietary as patient may be overfed and again, the patient did vomit today and she was on 45 mL an hour. I instructed the nursing staff to place her on 30 mL an h our, keep head elevated. Order was placed. I am not sure why she is getting 45 mL an hour. Dietary saw the patient on 12/28/2018 who recommended 30 mL and this was my instructions as well and my orde r. The patient again is lethargic currently nonverbal. PHYSICAL EXAMINATION: VITAL SIGNS: Temperature 98, pulse 76, respirations 18, blood pressure 128/56, saturation 96%. GENERAL: The patient is frail, weak looking, lethargic. CARDIOVASCULAR: S1, S2, regular rate. LUNGS: Decreased bilaterally. ABDOMEN: Soft. G-tube in place. EXTREMITIES: No clubbing, cyanosis or edema. LABORATORY DATA: White count increased to 12.7, hemoglobin 8.9, hematocrit 28, platelet count 247 wi th neutrophils 72%, lymphocytes 10%, monocytes 12%. Chemistry: Sodium 133, potassium 4.7, chloride 97, bicarbonate 28, BUN is 75, creatinine 2.28 and glucose of 102. MEDICATIONS: All reviewed. ASSESSMENT AND PLAN: This is an 83-year-old [place] female with end-stage renal disease, advanced d ementia, atherosclerotic cardiovascular disease, chronic obstructive pulmonary disease, status post t reatment for bacteremia, fungemia, urinary tract infection, right hand hematoma status post incision and drainage, also recurrent aspiration pneumonia. 1. Respiratory. We will obtain a chest x-ray. Monitor for aspiration. Decrease rate to 30 mL. 2. Dysphagia. Gastroenterology increased the feeding to 45 due to cachexia, but I will reduce it ba ck to 30. Continue to monitor. Continue Reglan. Continue aspiration precaution. 3. Cardiovascular. Vitals are stable. Monitor blood pressure. 4. Diabetes mellitus. Continue Accu-Cheks and low dose Levemir. 5. End-stage renal disease. Dialysis 3 times a week. 6. Anemia. Epogen. Hemoglobin and hematocrit is stable. No need for transfusion. 7. Urinary tract infection. Continue the Vfend. 8. Mood disorder. Mood appears to be stable. Follow up today's chest x-ray. Follow up leukocytosis. Follow up fevers. ID is following closely. The patient also is pending placement. We will follow closely. Dictated By: DYLON HULL/MADAN Conf#: [id number] DID#: [id number] CC: CHRISS WELCH MD;*EndCC*
[2018-12-31] MEDS: ALBUMIN HUMAN 25% 50 ML IV PRN ×2 (15:21→15:54)
--- NOTE | 2018-12-31 16:48 | CONS ---
Consult Date/Type/Reason Admit Date/Time Nov 16, 2018 at 05:51 Initial Consult Date 11/16/18 Type of Consultation: cv Requesting Provider: DYLON WALLS MD Date/Time of Note DATE: 12/31/18 TIME: 16:48 Subjective Cardiology follow up note Sl DW/ Staff and telemetry was reviewed. Patient is off tele now pt continues to be confused but calm and cooperative now no report of any chest pain or pressure or palpitations but pt is a very poor historian Events noted. 12/13/18: Patient went into atrial fibrillation rapid ventricular response during hemodialysis . Patient has been transferred to telemetry and converted back to sinus rhythm remains in sinus rhythm s/p I/D 11/17 EGD 11.18.18 O: General: Elderly frail female in no acute distress HEENT: NC/AT. Eyes are closed NECK: NO JVD. no stridor. CV: RRR. systolic murmur; no gallop or rubs. PULM: no wheezing or rhonchi. GI: SOFT, NT, ND, no rebound or guarding neuro: sleeping Psych: calm now rectal: deferred Objective Vitals Vital Signs Date Temp Pulse Resp B/P (MAP) Pulse Ox O2 O2 Flow FiO2 Time Delivery Rate 12/31/18 82 16:25 12/31/18 18 93/44 (60) 96 Room Air 15:40 12/31/18 97.9 14:28 12/27/18 2.0 08:00 Intake and Output 12/30/18 12/30/18 12/31/18 1414:59 22:59 06:59 IntakeIntake Total 440 ml BalanceBalance 440 ml Results/Medications Result Diagram: 12/31/18 0547 12/31/18 0547 Results 24 hrs Laboratory Tests Test 12/30/18 20:13 12/31/18 05:47 12/31/18 08:58 Bedside Glucose 147 193 White Blood Count 12.7 #H Red Blood Count 3.39 L Hemoglobin 8.9 L Hematocrit 28.4 L Mean Corpuscular Volume 83.8 Mean Corpuscular Hemoglobin 26.3 L Mean Corpuscular Hemoglobin Concent 31.3 L Red Cell Distribution Width 17.0 H Platelet Count 247 # Mean Platelet Volume 12.8 H Immature Granulocytes % 0.600 H Neutrophils % 71.5 Lymphocytes % 9.7 L Monocytes % 11.6 H Eosinophils % 6.1 Basophils % 0.5 Nucleated Red Blood Cells % 0.3 H Immature Granulocytes # 0.080 H Neutrophils # 9.1 H Lymphocytes # 1.2 Monocytes # 1.5 H Eosinophils # 0.8 H Basophils # 0.1 Nucleated Red Blood Cells # 0.0 Sodium Level 136 Potassium Level 4.7 Chloride Level 97 Carbon Dioxide Level 28 Anion Gap 11 Blood Urea Nitrogen 75 H Creatinine 2.28 H Est Glomerular Filtrat Rate mL/min Glucose Level 102 Calcium Level 9.1 Phosphorus Level 6.4 H Magnesium Level 3.0 H Home Meds Reported Medications Sennosides* (Senna Lax*) 8.6 Mg Tablet, 1 TAB PO BID, TAB 11/16/18 Sevelamer Carbonate* (Renvela*) 0.8 Gm Powd.pack, 0.8 GM PO WITH MEALS, PACKET 11/16/18 Lansoprazole* (Lansoprazole*) 30 Mg Capsule.dr, 30 MG PO QAM, CAP 11/16/18 Hydralazine Hcl* (Hydralazine Hcl*) 25 Mg Tab, 25 MG PO Q8, #90 TAB 11/16/18 Ferrous Sulfate* (Ferrous Sulfate*) 325 Mg Tabec, 325 MG PO BID for anemia, TAB 11/16/18 Valproate Sodium (Valproic Acid) 250 Mg/5 Ml Solution, 250 MG PO Q8, ML 11/16/18 Insulin Aspart* (Novolog Insulin Pen*) 100 Unit/Ml Soln, 0 SC .SLIDING SCALE AC, EA IF BS 160-200=2 UNITS,201-250=4 UNITS,251-300=8 UNITS,301-350=12 UNITS;351-400=16 UNITS THEN CALL MD. 10/16/18 Ondansetron Hcl* (Zofran*) 4 Mg Tab, 4 MG GTB Q4H PRN for NAUSEA AND OR VOMITING, TAB 10/16/18 Linagliptin (TRADJENTA) 5 Mg Tablet, 5 MG GTB DAILY, TAB 10/16/18 Quetiapine Fumarate* (Seroquel*) 25 Mg Tablet, 25 MG GTB BID, #60 TAB 10/16/18 [Nephro-Roque] No Conflict Check, 0.8 MG GTB DAILY 10/16/18 Polyethylene Glycol* (Miralax*) 17 Gm Powd.pack, 17 GM GTB Q24H, #30 PACKET 10/16/18 Metoprolol Tartrate* (Lopressor*) 50 Mg Tab, 50 MG GTB DAILY, #60 TAB Q MON,WED,FRI,SUN,HOLD FOR SBP<110 OR TN<60 10/16/18 Metoprolol Tartrate* (Lopressor*) 50 Mg Tab, 50 MG GTB BID, #60 TAB QTUE,ANDREW,SAT,HOLD FOR SBP<110 OR TN<60 10/16/18 Linaclotide (LINZESS) 145 Mcg Capsule, 145 MCG GTB DAILY, #30 CAP 10/16/18 Ipratropium-Albuterol (Ipratropium-Albuterol) 0.5-3 Mg/3 Ml Ampul.neb, 3 ML INHALATION Q6, #30 VIAL FOR 14 DAYS,STOP DATE 10/17/18 10/16/18 Hydralazine Hcl* (Hydralazine Hcl*) 25 Mg Tab, 25 MG GTB DAILY, #60 TAB Q TUE,ANDREW,SAT,HOLD IF SBP<110 OR TN<60 10/16/18 Folic Acid* (Folic Acid*) 1 Mg Tablet, 1 MG GTB DAILY, TAB 10/16/18 Docusate Sodium* (Colace*) 100 Mg Capsule, 100 MG GTB DAILY, #30 CAP 10/16/18 Lorazepam* (Lorazepam*) 1 Mg Tablet, 1 MG GTB HS PRN for ANXIETY, #30 TAB Q TUE,ANDREW,SAT 10/16/18 Amlodipine Besylate* (Norvasc*) 5 Mg Tablet, 5 MG GTB BID, TAB TAKE Q TUE,ANDREW,SAT FOR HTN, HOLD FOR SBP<110 OR TN<60 10/16/18 Acetaminophen* (Acetaminophen*) 650 Mg Tablet, 650 MG GTB Q6H PRN for PAIN LEVEL 1-08/18, #30 TAB 10/16/18 Medications Current Medications IV Flush (NS 3 ml) 3 ml PER PROTOCOL IV ; Start 11/16/18 at 09:00 Ondansetron HCl (Zofran Inj) 4 mg Q6H PRN IV NAUSEA AND/OR VOMITING Last administered on 12/31/18at 11:45; Admin Dose 4 MG; Start 11/16/18 at 09:00 Hydralazine HCl (Apresoline) 10 mg Q4H PRN IV ELEVATED BLOOD PRESSURE Last administered on 12/22/18 19:40; Admin Dose 10 MG; Start 11/17/18 at 10:30 Acetaminophen/ Hydrocodone Bitart ([place] (5/325)) 1 tab Q3H PRN PO MODERATE PAIN LEVEL 4-6 Last administered on 12/26/18 22:10; Admin Dose 1 TAB; Start 11/17/18 at 14:30 Albumin Human 50 ml @ 100 mls/hr WITH DIALYSIS PRN IV SBP<90 Last administered on 12/31/18 15:54; Admin Dose 100 MLS/HR; Start 11/18/18 at 14:30 Morphine Sulfate (morphine) 6 mg Q4H PRN PO SEVERE PAIN LEVEL 7-10 Last administered on 12/30/18 09:15; Admin Dose 6 MG; Start 11/18/18 at 23:00 Docusate Sodium (Colace Liquid Cup) 100 mg DAILY GTB Last administered on 12/31/18 08:59; Admin Dose 100 MG; Start 11/19/18 at 09:30 Multivit/Ca Carb/ B Cmplx/FA/Prenat (Kianna-Roque) 1 tab DAILY GTB Last administered on 12/31/18 08:59; Admin Dose 1 TAB; Start 11/24/18 at 09:00 Lansoprazole (Prevacid) 30 mg DAILY GTB Last administered on 12/31/18 08:59; Admin Dose 30 MG; Start 11/26/18 at 09:00 Acetaminophen (Tylenol Supp) 650 mg Q4H PRN [place] MILD PAIN(1-3) OR TEMP>38C Last administered on 11/26/18 08:32; Admin Dose 650 MG; Start 11/26/18 at 08:30 Epoetin Michael (Epogen (Esrd)) 4,000 units MoWeFr@17 SC Last administered on 12/29/18 18:08; Admin Dose 4,000 UNITS; Start 12/06/18 at 17:00 Hydralazine HCl (Apresoline) 50 mg Q8 PO Last administered on 12/31/18 05:37; Admin Dose 50 MG; Start 12/07/18 at 22:00 Metoprolol Tartrate (Lopressor) 100 mg BID GTB Last administered on 12/30/18 20:18; Admin Dose 100 MG; Start 12/13/18 at 21:00 Aspirin (Halfprin) 81 mg DAILY PO Last administered on 12/31/18 08:59; Admin Dose 81 MG; Start 12/13/18 at 19:30 Senna (Senokot) 1 tab BID PO Last administered on 12/31/18 08:59; Admin Dose 1 TAB; Start 12/17/18 at 21:00 Acetaminophen (Tylenol Tab) 650 mg Q6H PRN PO PAIN LEVEL 1-3 OR FEVER Last administered on 12/21/18 05:01; Admin Dose 650 MG; Start 12/17/18 at 15:00 Albuterol/ Ipratropium (Duoneb) 3 ml Q6H RESP THERAPY PRN HHN sob Last administered on 12/19/18 03:51; Admin Dose 3 ML; Start 12/17/18 at 09:00 Docusate Sodium (Colace) 100 mg Q12H PRN PO CONSTIPATION Last administered on 12/21/18 05:01; Admin Dose 100 MG; Start 12/17/18 at 21:00 Ferrous Sulfate (Feosol Liquid Cup) 300 mg BID GTB Last administered on 12/31/18 08:59; Admin Dose 300 MG; Start 12/17/18 at 21:00 Guaifenesin/ Dextromethorphan (Robitussin Dm Liquid Cup) 5 ml Q4H PRN PO cough Last administered on 12/24/18 21:16; Admin Dose 5 ML; Start 12/17/18 at 18:00 Linagliptin (Tradjenta) 5 mg DAILY GTB Last administered on 12/31/18 08:59; Admin Dose 5 MG; Start 12/17/18 at 09:00 Folic Acid (Folic Acid) 1 mg DAILY GTB Last administered on 12/31/18 08:59; Admin Dose 1 MG; Start 12/18/18 at 09:00 Metoclopramide HCl (Reglan) 5 mg Q8 PRN IV VOMITTING; Start 12/20/18 at 10:00 IV Flush (NS 10 ml) 10 ml AFTER DIALYSIS CATHETER ; Start 12/22/18 at 10:00 Voriconazole (Vfend) 200 mg BID PO Last administered on 12/31/18 08:59; Admin Dose 200 MG; Start 12/22/18 at 11:00 Magnesium Hydroxide (Milk Of Mag) 30 ml DAILY PRN PO CONSTIPATION; Start 12/22/18 at 17:00 Sodium Chloride (NS) -To prime the dialy... DIRECTED FOR HD PRN IV HD; Start 12/23/18 at 16:00 Amlodipine Besylate (Norvasc) 5 mg DAILY GTB Last administered on 12/30/18at 09:14; Admin Dose 5 MG; Start 12/25/18 at 15:30 Polyethylene Glycol (Miralax) 17 gm DAILY GTB Last administered on 12/31/18 08:59; Admin Dose 17 GM; Start 12/27/18 at 09:00 Metoclopramide HCl (Reglan) 5 mg Q8 IV Last administered on 12/31/18 13:59; Admin Dose 5 MG; Start 12/27/18 at 22:00 Insulin Glargine (Lantus) 4 units DAILY@2000 SC Last administered on 12/30/18at 20:16; Admin Dose 4 UNITS; Start 12/28/18 at 20:00 Miscellaneous Information 1 ea NOTE XX ; Start 12/28/18 at 19:00 Glucose (Glutose) 15 gm Q15M PRN PO DECREASED GLUCOSE; Start 12/28/18 at 19:00 Glucose (Glutose) 22.5 gm Q15M PRN PO DECREASED GLUCOSE; Start 12/28/18 at 19:00 Dextrose (D50w Syringe) 25 ml Q15M PRN IV DECREASED GLUCOSE; Start 12/28/18 at 19:00 Dextrose (D50w Syringe) 50 ml Q15M PRN IV DECREASED GLUCOSE; Start 12/28/18 at 19:00 Glucagon (Glucagen) 1 mg Q15M PRN IM DECREASED GLUCOSE; Start 12/28/18 at 19:00 Glucose (Glutose) 15 gm Q15M PRN BUCCAL DECREASED GLUCOSE; Start 12/28/18 at 19:00 Sevelamer Carbonate (Renvela) 1.6 gm TID NGT Last administered on 12/31/18at 13:56; Admin Dose 1.6 GM; Start 12/31/18 at 13:00 Meropenem/Sodium Chloride 50 ml @ 100 mls/hr Q24H IVPB ; Start 12/31/18 at 20:0 0 Assessment/Plan Hospital Course (Demo Recall) P-atrial fibrillation rapid ventricular response: Currently back in sinus rhythm fungemia /fungal urinary tract infection Status post right hand hematoma: Status post I&D Renal failure on dialysis Hypertension Dementia Anemia Possible GI bleed: Status post EGD AI Recommendations: pt is not on full anticoagulation due to the fall risk as well as anemia cont beta-farrah Dialysis as per renal team Neuro workup and treatment as per internal medicine Antibiotic as per ID and internal medicine asa for now and monitor Thank you for his referral. We will continue to follow along with you as needed basis CHRISTNE ESCOBEDO MD [facility] CHRISTEN ESCOBEDO MD Dec 31, 2018 16:48
[2018-12-31] MEDS: EPOETIN 4000 UNITS/1 ML INJ (ESRD) SC SCH (17:36)
[2018-12-31] MEDS: INSULIN GLARGINE [LANTus] (100 UNITS/ML) SYG SC SCH (20:03)
[2018-12-31] MEDS: MEROPENEM 500MG/50 ML (PMX) 50 ML IVPB SCH (20:05)
[2019-01-01 02:00] VITALS: BP 129/63; PULSE 77; RESP 18
[2019-01-01] MEDS: METOCLOPRAMIDE 10 MG INJ IV SCH ×3 (06:28→22:33)
[2019-01-01 08:12] VITALS: BP 125/59; PULSE 83; RESP 16
[2019-01-01] MEDS: LINAGLIPTIN 5 MG TABLET GTB SCH (08:30)
[2019-01-01] MEDS: SEVELAMER CARBONATE 0.8 GM PKT NGT SCH ×3 (08:30→20:19)
[2019-01-01] MEDS: LANSOPRAZOLE 30 MG CAP GTB SCH (08:30)
[2019-01-01] MEDS: FERROUS SULFATE 60 MG/ML 5ML CUP GTB SCH ×2 (08:30→20:21)
[2019-01-01] MEDS: MULTIVIT/CA CARB/B CMPLX/FA TAB GTB SCH (08:31)
[2019-01-01] MEDS: AMLODIPINE 5 MG TAB GTB SCH (08:31)
[2019-01-01] MEDS: FOLIC ACID 1 MG TAB GTB SCH (08:31)
[2019-01-01] MEDS: VORICONAZOLE 200 MG TAB PO SCH ×2 (08:31→20:22)
[2019-01-01] MEDS: ASPIRIN (EC) 81 MG TAB PO SCH (08:31)
[2019-01-01] MEDS: POLYETHYLENE GLYCOL 17 GM PACKET GTB SCH (08:32)
[2019-01-01] MEDS: SENNA TAB PO SCH ×2 (08:32→20:22)
[2019-01-01] MEDS: METOPROLOL 50 MG TAB GTB SCH ×2 (08:32→20:23)
[2019-01-01] MEDS: DOCUSATE SODIUM 10 MG/ML (10ML CUP) GTB SCH (08:32)
--- NOTE | 2019-01-01 10:55 | CONS ---
Assessment/Plan Assessment/Plan Assessment/Plan (Daily) Assessment/Plan Assessment/Plan Assessment/Plan (Daily) Assessment/Plan Assessment/Plan (Daily) Hospital Course (Demo Recall) 83 yo female in ESRD on HD presents for melena and anemia and also found to have edematous Rt hand/wrist 1. UGIB manifested through melena and anemia -no melena noted or GI bleeding noted by nursing staff -RESOLVED 2. Anemia, acute on chronic, acute likely due to blood loss in rt hand -No evidence of active GI bleeding, consider etiology of blood loss anemia to be from hematoma in hand -Fe wnl, TIBC low, Ferritin, folate, b12 high, FOB neg -STABLE 3. ESRD on HD -Followed by nephrology 4. Hematoma of Rt hand and wrist -I and D drainage by Dr. Dean 11/17 -IMPROVED 5. Dysphagia -on tube feeds and pureed nectar for oral gratification 6. DM2 7. HTN 8. H/O diastolic dysfunction heart failure 9. S/P EGD 11/18 10. Moderate gastritis with no bleeding noted. 11. Hospital acquired pneumonia -improved 12. Yeast in urine cx -cx 12/20 12. Emesis -pt had another episode of emesis this am of just her medications after they were given. Residuals were 15cc prior to giving medications. The emesis contained only the medications no tube feeds. Gastric biopsy results: Stomach, biopsy: -- Antral and oxyntic mucosa showing minimal plasma cell infiltration and small focus of intestinal metaplasia. -- No Helicobacter pylori is identified in Giemsa stain (positive control concurrently reviewed). -- No evidence of dysplasia or malignancy. Plan: Consider GJ tube if unable to tolerate feeding and there is evidence of aspiration Give medications in small doses Reglan 5 mg prior to meals, low dose to due ESRD Continue present care Monitor HH closely and for active GI bleeding, Patient did not tolerate feeding at 45 cc/h. Feeding is going at 30 cc/h. If despite this she continues to have vomiting then consider gastrojejunostomy tube Consultation Date/Type/Reason Admit Date/Time Nov 16, 2018 at 05:51 Initial Consult Date 11/16/18 Requesting Provider: DYLON WALLS MD Date/Time of Note DATE: 01/01/19 TIME: 10:54 24 HR Interval Summary Free Text/Dictation Patient did not tolerate feeding at 45 cc/h. As per the staff she started vomiting. Feeding was reduced to 30 cc/h Constitutional: disoriented Exam/Review of Systems Exam Vitals Vital Signs Date Temp Pulse Resp B/P (MAP) Pulse Ox O2 O2 Flow FiO2 Time Delivery Rate 01/01/19 97.6 83 16 125/59 98 08:12 (81) 01/01/19 Room Air 02:00 Intake and Output 12/31/18 12/31/18 01/01/19 1515:00 23:00 07:00 IntakeIntake Total 655 ml 610 ml OutputOutput Total 0 ml 1500 ml BalanceBalance 0 ml -845 ml 610 ml Constitutional: alert, oriented, well developed Psych: no complaints, nl mood/affect Head: normocephalic, atraumatic Eyes: nl conjunctiva, EOMI, nl lids, nl sclera, PERRL ENMT: nl external ears & nose, nl lips & teeth, nl nasal mucosa & septum Neck: supple, non-tender Respiratory: clear to auscultation, normal air movement Cardiovascular: regular rate and rhythm, nl pulses Gastrointestinal: soft, nl liver, spleen, non-tender Musculoskeletal: nl extremities to inspection, nl gait and stance Extremities: normal pulses 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: ANALYTICAL CONSULTANT II-XII intact, nl mental status, nl speech, nl strength Skin: nl turgor; No rash or lesions Lymph: nl lymph nodes Results Result Diagram: 01/01/1924 01/01/19 0624 Results 24hrs Laboratory Tests Test 12/31/18 19:59 01/01/19 06:24 01/01/19 08:29 Bedside Glucose 250 H 134 White Blood Count 12.0 H Red Blood Count 3.09 L Hemoglobin 8.0 L Hematocrit 26.4 L Mean Corpuscular Volume 85.4 Mean Corpuscular Hemoglobin 25.9 L Mean Corpuscular Hemoglobin Concent 30.3 L Red Cell Distribution Width 17.0 H Platelet Count 215 Mean Platelet Volume 12.5 H Immature Granulocytes % 0.700 H Neutrophils % 76.1 Lymphocytes % 7.8 L Monocytes % 12.0 H Eosinophils % 3.2 Basophils % 0.2 Nucleated Red Blood Cells % 0.5 H Immature Granulocytes # 0.080 H Neutrophils # 9.1 H Lymphocytes # 0.9 Monocytes # 1.4 H Eosinophils # 0.4 Basophils # 0.0 Nucleated Red Blood Cells # 0.1 H Sodium Level 140 Potassium Level 4.4 Chloride Level 101 Carbon Dioxide Level 30 Anion Gap 9 Blood Urea Nitrogen 43 #H Creatinine 1.82 H Est Glomerular Filtrat Rate mL/min Glucose Level 87 Calcium Level 9.2 Phosphorus Level 3.1 # Magnesium Level 3.0 H Medications Medication Current Medications IV Flush (NS 3 ml) 3 ml PER PROTOCOL IV ; Start 11/16/18 at 09:00 Ondansetron HCl (Zofran Inj) 4 mg Q6H PRN IV NAUSEA AND/OR VOMITING Last administered on 12/31/18 11:45; Admin Dose 4 MG; Start 11/16/18 at 09:00 Hydralazine HCl (Apresoline) 10 mg Q4H PRN IV ELEVATED BLOOD PRESSURE Last administered on 12/22/18 19:40; Admin Dose 10 MG; Start 11/17/18 at 10:30 Acetaminophen/ Hydrocodone Bitart ([place] (5/325)) 1 tab Q3H PRN PO MODERATE PAIN LEVEL 4-6 Last administered on 12/26/18 22:10; Admin Dose 1 TAB; Start 11/17/18 at 14:30 Albumin Human 50 ml @ 100 mls/hr WITH DIALYSIS PRN IV SBP<90 Last administered on 12/31/18 15:54; Admin Dose 100 MLS/HR; Start 11/18/18 at 14:30 Morphine Sulfate (morphine) 6 mg Q4H PRN PO SEVERE PAIN LEVEL 7-10 Last ad ministered on 12/30/18 09:15; Admin Dose 6 MG; Start 11/18/18 at 23:00 Docusate Sodium (Colace Liquid Cup) 100 mg DAILY GTB Last administered on 12/31/18 08:59; Admin Dose 100 MG; Start 11/19/18 at 09:30 Multivit/Ca Carb/ B Cmplx/FA/Prenat (Kianna-Roque) 1 tab DAILY GTB Last administered on 01/01/19 08:31; Admin Dose 1 TAB; Start 11/24/18 at 09:00 Lansoprazole (Prevacid) 30 mg DAILY GTB Last administered on 01/01/19 08:30; Admin Dose 30 MG; Start 11/26/18 at 09:00 Acetaminophen (Tylenol Supp) 650 mg Q4H PRN [place] MILD PAIN(1-3) OR TEMP>38C Last administered on 11/26/18 08:32; Admin Dose 650 MG; Start 11/26/18 at 08:30 Epoetin Michael (Epogen (Esrd)) 4,000 units MoWeFr@17 SC Last administered on 12/31/18 17:36; Admin Dose 4,000 UNITS; Start 12/06/18 at 17:00 Hydralazine HCl (Apresoline) 50 mg Q8 PO Last administered on 01/01/19 06:28; Admin Dose 50 MG; Start 12/07/18 at 22:00 Metoprolol Tartrate (Lopressor) 100 mg BID GTB Last administered on 01/01/19 08:32; Admin Dose 100 MG; Start 12/13/18 at 21:00 Aspirin (Halfprin) 81 mg DAILY PO Last administered on 01/01/19 08:31; Admin D ose 81 MG; Start 12/13/18 at 19:30 Senna (Senokot) 1 tab BID PO Last administered on 12/31/18 20:32; Admin Dose 1 TAB; Start 12/17/18 at 21:00 Acetaminophen (Tylenol Tab) 650 mg Q6H PRN PO PAIN LEVEL 1-3 OR FEVER Last administered on 12/21/18 05:01; Admin Dose 650 MG; Start 12/17/18 at 15:00 Albuterol/ Ipratropium (Duoneb) 3 ml Q6H RESP THERAPY PRN HHN sob Last administered on 12/19/18 03:51; Admin Dose 3 ML; Start 12/17/18 at 09:00 Docusate Sodium (Colace) 100 mg Q12H PRN PO CONSTIPATION Last administered on 12/21/18 05:01; Admin Dose 100 MG; Start 12/17/18 at 21:00 Ferrous Sulfate (Feosol Liquid Cup) 300 mg BID GTB Last administered on 01/01/19 08:30; Admin Dose 300 MG; Start 12/17/18 at 21:00 Guaifenesin/ Dextromethorphan (Robitussin Dm Liquid Cup) 5 ml Q4H PRN PO cough Last administered on 12/24/18 21:16; Admin Dose 5 ML; Start 12/17/18 at 18:00 Linagliptin (Tradjenta) 5 mg DAILY GTB Last administered on 01/01/19 08:30; Admin Dose 5 MG; Start 12/17/18 at 09:00 Folic Acid (Folic Acid) 1 mg DAILY GTB Last administered on 01/01/19 08:31; Admin Dose 1 MG; Start 12/18/18 at 09:00 Metoclopramide HCl (Reglan) 5 mg Q8 PRN IV VOMITTING; Start 12/20/18 at 10:00 IV Flush (NS 10 ml) 10 ml AFTER DIALYSIS CATHETER ; Start 12/22/18 at 10:00 Voriconazole (Vfend) 200 mg BID PO Last administered on 01/01/19 08:31; Admin Dose 200 MG; Start 12/22/18 at 11:00 Magnesium Hydroxide (Milk Of Mag) 30 ml DAILY PRN PO CONSTIPATION; Start 12/22/18 at 17:00 Sodium Chloride (NS) -To prime the dialy... DIRECTED FOR HD PRN IV HD; Start 12/23/18 at 16:00 Amlodipine Besylate (Norvasc) 5 mg DAILY GTB Last administered on 01/01/19 08:31; Admin Dose 5 MG; Start 12/25/18 at 15:30 Polyethylene Glycol (Miralax) 17 gm DAILY GTB Last administered on 12/31/18 08:59; Admin Dose 17 GM; Start 12/27/18 at 09:00 Metoclopramide HCl (Reglan) 5 mg Q8 IV Last administered on 01/01/19 06:28; Admin Dose 5 MG; Start 12/27/18 at 22:00 Insulin Glargine (Lantus) 4 units DAILY@2000 SC Last administered on 12/31/18at 20:03; Admin Dose 4 UNITS; Start 12/28/18 at 20:00 Miscellaneous Information 1 ea NOTE XX ; Start 12/28/18 at 19:00 Glucose (Glutose) 15 gm Q15M PRN PO DECREASED GLUCOSE; Start 12/28/18 at 19:00 Glucose (Glutose) 22.5 gm Q15M PRN PO DECREASED GLUCOSE; Start 12/28/18 at 19:00 Dextrose (D50w Syringe) 25 ml Q15M PRN IV DECREASED GLUCOSE; Start 12/28/18 at 19:00 Dextrose (D50w Syringe) 50 ml Q15M PRN IV DECREASED GLUCOSE; Start 12/28/18 at 19:00 Glucagon (Glucagen) 1 mg Q15M PRN IM DECREASED GLUCOSE; Start 12/28/18 at 19:00 Glucose (Glutose) 15 gm Q15M PRN BUCCAL DECREASED GLUCOSE; Start 12/28/18 at 19:00 Sevelamer Carbonate (Renvela) 1.6 gm TID NGT Last administered on 01/01/19at 08:30; Admin Dose 1.6 GM; Start 12/31/18 at 13:00 Meropenem/Sodium Chloride 50 ml @ 100 mls/hr Q24H IVPB Last administered on 12/31/18at 20:05; Admin Dose 100 MLS/HR; Start 12/31/18 at 20:00 CHRISS WELCH MD Jan 01, 2019 10:55
--- NOTE | 2019-01-01 11:54 | CONS ---
Assessment/Plan Assessment/Plan Hospital Course (Demo Recall) 1. End-stage renal disease on hemodialysis. 2. Gastrointestinal bleed with melena, resolved. 3. Hypertension, controlled. 4. Diabetes mellitus type II controlled. 5. Right hand swelling, s/p I and D on 11/17/18 6. History of falls. 7. Vascular dementia. 8. History of sepsis with VRE. 9. Dysphagia, status post G-tube. 10. History of hip fracture. 11. Thrombocytopenia. 12. Atherosclerotic heart disease. 13. Pneumonia left side, resolved 14. Anemia 15. Fungemia. 16. UTI Assessment/Plan (Daily) - Hd MWF, - cw with permacath -avoid nephrotoxic drugs -HD MWFr -c/w epogen - Aspiration precautions Consultation Date/Type/Reason Admit Date/Time Nov 16, 2018 at 05:51 Initial Consult Date 11/16/18 Type of Consult nephrology Requesting Provider: DYLON WALLS MD Date/Time of Note DATE: 01/01/19 TIME: 11:53 24 HR Interval Summary Free Text/Dictation sleeping Exam/Review of Systems Exam Vitals Vital Signs Date Temp Pulse Resp B/P (MAP) Pulse Ox O2 O2 Flow FiO2 Time Delivery Rate 01/01/19 97.6 83 16 125/59 98 08:12 (81) 01/01/19 Room Air 02:00 Intake and Output 12/31/18 12/31/18 01/01/19 1515:00 23:00 07:00 IntakeIntake Total 655 ml 610 ml OutputOutput Total 0 ml 1500 ml BalanceBalance 0 ml -845 ml 610 ml Exam left chest Permcath Neck: supple Respiratory: clear to auscultation Gastrointestinal: soft Results Result Diagram: 01/01/19 0624 01/01/19 0624 Results 24hrs Laboratory Tests Test 12/31/18 19:59 01/01/19 06:24 01/01/19 08:29 Bedside Glucose 250 H 134 White Blood Count 12.0 H Red Blood Count 3.09 L Hemoglobin 8.0 L Hematocrit 26.4 L Mean Corpuscular Volume 85.4 Mean Corpuscular Hemoglobin 25.9 L Mean Corpuscular Hemoglobin Concent 30.3 L Red Cell Distribution Width 17.0 H Platelet Count 215 Mean Platelet Volume 12.5 H Immature Granulocytes % 0.700 H Neutrophils % 76.1 Lymphocytes % 7.8 L Monocytes % 12.0 H Eosinophils % 3.2 Basophils % 0.2 Nucleated Red Blood Cells % 0.5 H Immature Granulocytes # 0.080 H Neutrophils # 9.1 H Lymphocytes # 0.9 Monocytes # 1.4 H Eosinophils # 0.4 Basophils # 0.0 Nucleated Red Blood Cells # 0.1 H Sodium Level 140 Potassium Level 4.4 Chloride Level 101 Carbon Dioxide Level 30 Anion Gap 9 Blood Urea Nitrogen 43 #H Creatinine 1.82 H Est Glomerular Filtrat Rate mL/min Glucose Level 87 Calcium Level 9.2 Phosphorus Level 3.1 # Magnesium Level 3.0 H Medications Medication Current Medications IV Flush (NS 3 ml) 3 ml PER PROTOCOL IV ; Start 11/16/18 at 09:00 Ondansetron HCl (Zofran Inj) 4 mg Q6H PRN IV NAUSEA AND/OR VOMITING Last administered on 12/31/18 11:45; Admin Dose 4 MG; Start 11/16/18 at 09:00 Hydralazine HCl (Apresoline) 10 mg Q4H PRN IV ELEVATED BLOOD PRESSURE Last administered on 12/22/18 19:40; Admin Dose 10 MG; Start 11/17/18 at 10:30 Acetaminophen/ Hydrocodone Bitart ([place] (5/325)) 1 tab Q3H PRN PO MODERATE PAIN LEVEL 4-6 Last administered on 12/26/18 22:10; Admin Dose 1 TAB; Start 11/17/18 at 14:30 Albumin Human 50 ml @ 100 mls/hr WITH DIALYSIS PRN IV SBP<90 Last administered on 12/31/18 15:54; Admin Dose 100 MLS/HR; Start 11/18/18 at 14:30 Morphine Sulfate (morphine) 6 mg Q4H PRN PO SEVERE PAIN LEVEL 7-10 Last administered on 12/30/18 09:15; Admin Dose 6 MG; Start 11/18/18 at 23:00 Docusate Sodium (Colace Liquid Cup) 100 mg DAILY GTB Last administered on 12/31/18 08:59; Admin Dose 100 MG; Start 11/19/18 at 09:30 Multivit/Ca Carb/ B Cmplx/FA/Prenat (Kianna-Roque) 1 tab DAILY GTB Last administered on 01/01/19 08:31; Admin Dose 1 TAB; Start 11/24/18 at 09:00 Lansoprazole (Prevacid) 30 mg DAILY GTB Last administered on 01/01/19 08:30; Admin Dose 30 MG; Start 11/26/18 at 09:00 Acetaminophen (Tylenol Supp) 650 mg Q4H PRN [place] MILD PAIN(1-3) OR TEMP>38C Last administered on 11/26/18 08:32; Admin Dose 650 MG; Start 11/26/18 at 08:30 Epoetin Michael (Epogen (Esrd)) 4,000 units MoWeFr@17 SC Last administered on 12/31/18 17:36; Admin Dose 4,000 UNITS; Start 12/06/18 at 17:00 Hydralazine HCl (Apresoline) 50 mg Q8 PO Last administered on 01/01/19 06:28; Admin Dose 50 MG; Start 12/07/18 at 22:00 Metoprolol Tartrate (Lopressor) 100 mg BID GTB Last administered on 01/01/19 08:32; Admin Dose 100 MG; Start 12/13/18 at 21:00 Aspirin (Halfprin) 81 mg DAILY PO Last administered on 01/01/19 08:31; Admin Dose 81 MG; Start 12/13/18 at 19:30 Senna (Senokot) 1 tab BID PO Last administered on 12/31/18 20:32; Admin Dose 1 TAB; Start 12/17/18 at 21:00 Acetaminophen (Tylenol Tab) 650 mg Q6H PRN PO PAIN LEVEL 1-3 OR FEVER Last administered on 12/21/18 05:01; Admin Dose 650 MG; Start 12/17/18 at 15:00 Albuterol/ Ipratropium (Duoneb) 3 ml Q6H RESP THERAPY PRN HHN sob Last admin istered on 12/19/18 03:51; Admin Dose 3 ML; Start 12/17/18 at 09:00 Docusate Sodium (Colace) 100 mg Q12H PRN PO CONSTIPATION Last administered on 12/21/18 05:01; Admin Dose 100 MG; Start 12/17/18 at 21:00 Ferrous Sulfate (Feosol Liquid Cup) 300 mg BID GTB Last administered on 01/01/19 08:30; Admin Dose 300 MG; Start 12/17/18 at 21:00 Guaifenesin/ Dextromethorphan (Robitussin Dm Liquid Cup) 5 ml Q4H PRN PO cough Last administered on 12/24/18 21:16; Admin Dose 5 ML; Start 12/17/18 at 18:00 Linagliptin (Tradjenta) 5 mg DAILY GTB Last administered on 01/01/19 08:30; Admin Dose 5 MG; Start 12/17/18 at 09:00 Folic Acid (Folic Acid) 1 mg DAILY GTB Last administered on 01/01/19 08:31; Admin Dose 1 MG; Start 12/18/18 at 09:00 Metoclopramide HCl (Reglan) 5 mg Q8 PRN IV VOMITTING; Start 12/20/18 at 10:00 IV Flush (NS 10 ml) 10 ml AFTER DIALYSIS CATHETER ; Start 12/22/18 at 10:00 Voriconazole (Vfend) 200 mg BID PO Last administered on 01/01/19 08:31; Admin Dose 200 MG; Start 12/22/18 at 11:00 Magnesium Hydroxide (Milk Of Mag) 30 ml DAILY PRN PO CONSTIPATION; Start 12/22/18 at 17:00 Sodium Chloride (NS) -To prime the dialy... DIRECTED FOR HD PRN IV HD; Start 12/23/18 at 16:00 Amlodipine Besylate (Norvasc) 5 mg DAILY GTB Last administered on 01/01/19 08:31; Admin Dose 5 MG; Start 12/25/18 at 15:30 Polyethylene Glycol (Miralax) 17 gm DAILY GTB Last administered on 12/31/18 08 :59; Admin Dose 17 GM; Start 12/27/18 at 09:00 Metoclopramide HCl (Reglan) 5 mg Q8 IV Last administered on 01/01/19 06:28; Admin Dose 5 MG; Start 12/27/18 at 22:00 Insulin Glargine (Lantus) 4 units DAILY@2000 SC Last administered on 12/31/18 20:03; Admin Dose 4 UNITS; Start 12/28/18 at 20:00 Miscellaneous Information 1 ea NOTE XX ; Start 12/28/18 at 19:00 Glucose (Glutose) 15 gm Q15M PRN PO DECREASED GLUCOSE; Start 12/28/18 at 19:00 Glucose (Glutose) 22.5 gm Q15M PRN PO DECREASED GLUCOSE; Start 12/28/18 at 19:00 Dextrose (D50w Syringe) 25 ml Q15M PRN IV DECREASED GLUCOSE; Start 12/28/18 at 19:00 Dextrose (D50w Syringe) 50 ml Q15M PRN IV DECREASED GLUCOSE; Start 12/28/18 at 19:00 Glucagon (Glucagen) 1 mg Q15M PRN IM DECREASED GLUCOSE; Start 12/28/18 at 19:00 Glucose (Glutose) 15 gm Q15M PRN BUCCAL DECREASED GLUCOSE; Start 12/28/18 at 19:00 Sevelamer Carbonate (Renvela) 1.6 gm TID NGT Last administered on 01/01/19at 08:30; Admin Dose 1.6 GM; Start 12/31/18 at 13:00 Meropenem/Sodium Chloride 50 ml @ 100 mls/hr Q24H IVPB Last administered on 12/31/18at 20:05; Admin Dose 100 MLS/HR; Start 12/31/18 at 20:00 FLAVIO CLAYTON Jan 01, 2019 11:54
[2019-01-01 14:21] VITALS: BP 108/52; PULSE 70; RESP 16
--- NOTE | 2019-01-01 16:16 | PN ---
DATE: 12/29/2018 SUBJECTIVE: The patient seen. The patient is anxious, more alert today. Talks more than usual in t he past few. PHYSICAL EXAMINATION: VITAL SIGNS: Temperature 97.7, pulse 70, respirations 16, blood pressure 108/50, saturation at 98% on room air. GENERAL: No acute, atraumatic. Pale. Clear. CARDIOVASCULAR: S1, S2, regular rate. LUNGS: Clear. ABDOMEN: Soft. G-tube in place. EXTREMITIES: No clubbing, cyanosis, or edema. LABORATORY DATA: White count of 12, slightly better. Hemoglobin 8, hematocrit 26, platelets ____. Chemistry: Sodium is 140, potassium 4.4, chloride 101, bicarbonate 30, BUN is 43, creatinine 1.82, g lucose of 134. Magnesium is 3.0. MEDICATIONS: 1. All reviewed they include Merrem, which was started yesterday. 2. Renvela. 3. Lantus. 4. Reglan. 5. MiraLax. 6. Norvasc. 7. Milk of magnesia. 8. Reglan. 9. Senna. 10. Colace. 11. Robitussin. 12. DuoNeb. 13. Lopressor. 14. Hydralazine. All meds were reviewed. ASSESSMENT AND PLAN: This is an 83-year-old [place] female with end-stage renal disease, advanced d ementia, ASCVD, status post treatment for bacteremia, fungemia, UTI, right hand hematoma, status post evacuation, treated for aspiration pneumonia recently, now again with worsening leukocytosis and epi sodes of vomiting. 1. Respiratory. Again, on room air and for possible aspiration pneumonia. White count has improved . Observe. Clinically better. 2. Dysphagia. Continue G-tube feeding. Keep head elevation. Keep feeding at 30 mL an hour due to risk of aspiration. 3. Cardiovascular. Vitals are stable. 4. Diabetes mellitus. Continue Accu-Cheks. Continue low-dose Levemir 5. Tradjenta. 6. End-stage renal disease, dialysis 3 times a week as the patient received dialysis on Thursday, and Thursday. 7. Anemia. Continue Epogen. No need for transfusion for now. 8. Urinary tract infection, on ____. 9. Mood disorder slightly more anxious today. Observe. May start her back on all antipsychotics. We will follow closely. The patient's bed is close to the nursing station. The patient has been mon itored closely. We will follow. [facility]waiting placement at [facility] facility. Dictated By: DYLON HULL/MADAN Conf#: [id number] DID#: [id number]
[2019-01-01 20:00] VITALS: BP 113/46; PULSE 72; RESP 18
[2019-01-01] MEDS: MEROPENEM 500MG/50 ML (PMX) 50 ML IVPB SCH (20:00)
[2019-01-01] MEDS: INSULIN GLARGINE [LANTus] (100 UNITS/ML) SYG SC SCH (20:29)
--- NOTE | 2019-01-01 22:54 | CONS ---
Assessment/Plan Assessment/Plan Hospital Course (Demo Recall) ID PROGRESS NOTE CURRENT ABX: DAY #=> VFEND #10 + Merrem #2 s/p Merrem # + Cancidas 24H INTERVAL SUMMARY * STARTED ON MERREM YESTERDAY FOR ASPIRATION PNEUMONITIS * Increased lethargy, WBC elevated -- per RN she had episode of emesis -- suspect recurrent ASPIRATION EVENT * No fevers, VSS, without dyspnea on room air * Indwelling: Left chest PermCath, PEG MICRO * 12/20/18 URINE Cx (+) Glabrata URINE CULTURE Final Organism 1 TYREE GLABRATA COLONY COUNT 30,000 - 40,000 CFU/ml * 12/20/18 BCx (-) * 12/18/18 BCx (-) * 12/06/18 URINE Cx (+) Glabrata * 12/03/18 BCx (-) * 12/01/18 BCx (-) * 11/29/18 BCx (+) Glabrata * 11/24/18 BCX (+) Glabrata = fungemia PHYSICAL EXAMINATION: GENERAL: Afebrile, VSS, HEENT: AT, NC, anicteric NECK: Supple, trach CHEST: Equal chest rise bilaterally, without dyspnea on observation HEART: Pulse RRR ABDOMEN: Soft / NT EXTREMITIES: Warm, dry SKIN: No rash, no diaphoresis ID ASSESSMENT 83 yo F w/ DEMENTIA admit with: 1. NEW ISSUE: (+)SIRS 12/31/18 w/Increased lethargy, WBC elevated 12.7-- per RN she had episode of emesis -- suspect recurrent ASPIRATION EVENT 2. Recurrent ASPIRATION PNEUMONITIS event 12/30/18 3. Recurrent C.GLABRATA UTIs == on 3 week course of VFEND * s/p FUNGEMIA == secondary to GLABRATA UTI => RESOLVED 4. Status post VRE bacteremia, status post new Pcath => RESOLVED 5. End-stage renal disease, hemodialysis dependent 6. Diabetes 7. Anemia 8. Failure to thrive - Frail cachectic w/dementia (-)MRSA Nares ABX ALLERGIES: KNDA INVASIVES: PIV, Left chest PermCath CURRENT ABX: DAY #=> VFEND #10 + Merrem #2 s/p Merrem # + Cancidas ID RECOMMENDATIONS/PLAN: NEW ISSUE-> Started Merrem 500mg IV Q12 for HCAP ASP PNA yesterday Continue on Vfend prolonged course due to recurrent symptomatic Glabrata UTI and hx of FUNGEMIA . Consultation Date/Type/Reason Admit Date/Time Nov 16, 2018 at 05:51 Initial Consult Date 11/16/18 Requesting Provider: DYLON WALLS MD Date/Time of Note DATE: 01/01/19 TIME: 22:52 Exam/Review of Systems Exam Vitals Vital Signs Date Temp Pulse Resp B/P (MAP) Pulse Ox O2 O2 Flow FiO2 Time Delivery Rate 01/01/19 98.4 72 18 113/46 96 20:00 (68) 01/01/19 21 15:47 01/01/19 Room Air 02:00 Intake and Output 12/31/18 12/31/18 01/01/19 1515:00 23:00 07:00 IntakeIntake Total 655 ml 610 ml OutputOutput Total 0 ml 1500 ml BalanceBalance 0 ml -845 ml 610 ml Results Result Diagram: 01/01/19 0624 01/01/19 0624 Results 24hrs Laboratory Tests Test 01/01/19 06:24 01/01/19 08:29 01/01/19 20:28 White Blood Count 12.0 H Red Blood Count 3.09 L Hemoglobin 8.0 L Hematocrit 26.4 L Mean Corpuscular Volume 85.4 Mean Corpuscular Hemoglobin 25.9 L Mean Corpuscular Hemoglobin Concent 30.3 L Red Cell Distribution Width 17.0 H Platelet Count 215 Mean Platelet Volume 12.5 H Immature Granulocytes % 0.700 H Neutrophils % 76.1 Lymphocytes % 7.8 L Monocytes % 12.0 H Eosinophils % 3.2 Basophils % 0.2 Nucleated Red Blood Cells % 0.5 H Immature Granulocytes # 0.080 H Neutrophils # 9.1 H Lymphocytes # 0.9 Monocytes # 1.4 H Eosinophils # 0.4 Basophils # 0.0 Nucleated Red Blood Cells # 0.1 H Sodium Level 140 Potassium Level 4.4 Chloride Level 101 Carbon Dioxide Level 30 Anion Gap 9 Blood Urea Nitrogen 43 #H Creatinine 1.82 H Est Glomerular Filtrat Rate mL/min Glucose Level 87 Calcium Level 9.2 Phosphorus Level 3.1 # Magnesium Level 3.0 H Bedside Glucose 134 191 Medications Medication Current Medications IV Flush (NS 3 ml) 3 ml PER PROTOCOL IV ; Start 11/16/18 at 09:00 Ondansetron HCl (Zofran Inj) 4 mg Q6H PRN IV NAUSEA AND/OR VOMITING Last administered on 12/31/18 11:45; Admin Dose 4 MG; Start 11/16/18 at 09:00 Hydralazine HCl (Apresoline) 10 mg Q4H PRN IV ELEVATED BLOOD PRESSURE Last administered on 12/22/18 19:40; Admin Dose 10 MG; Start 11/17/18 at 10:30 Acetaminophen/ Hydrocodone Bitart ([place] (5/325)) 1 tab Q3H PRN PO MODERATE PAIN LEVEL 4-6 Last administered on 12/26/18 22:10; Admin Dose 1 TAB; Start 11/17/18 at 14:30 Albumin Human 50 ml @ 100 mls/hr WITH DIALYSIS PRN IV SBP<90 Last administered on 12/31/18 15:54; Admin Dose 100 MLS/HR; Start 11/18/18 at 14:30 Morphine Sulfate (morphine) 6 mg Q4H PRN PO SEVERE PAIN LEVEL 7-10 Last administered on 12/30/18 09:15; Admin Dose 6 MG; Start 11/18/18 at 23:00 Docusate Sodium (Colace Liquid Cup) 100 mg DAILY GTB Last administered on 12/31/18 08:59; Admin Dose 100 MG; Start 11/19/18 at 09:30 Multivit/Ca Carb/ B Cmplx/FA/Prenat (Kianna-Roque) 1 tab DAILY GTB Last administered on 01/01/19 08:31; Admin Dose 1 TAB; Start 11/24/18 at 09:00 Lansoprazole (Prevacid) 30 mg DAILY GTB Last administered on 01/01/19 08:30; Admin Dose 30 MG; Start 11/26/18 at 09:00 Acetaminophen (Tylenol Supp) 650 mg Q4H PRN [place] MILD PAIN(1-3) OR TEMP>38C Last administered on 11/26/18 08:32; Admin Dose 650 MG; Start 11/26/18 at 08:30 Epoetin Michael (Epogen (Esrd)) 4,000 units MoWeFr@17 SC Last administered on 12/31/18 17:36; Admin Dose 4,000 UNITS; Start 12/06/18 at 17:00 Hydralazine HCl (Apresoline) 50 mg Q8 PO Last administered on 01/01/19 22:33; Admin Dose 50 MG; Start 12/07/18 at 22:00 Metoprolol Tartrate (Lopressor) 100 mg BID GTB Last administered on 01/01/19 20:23; Admin Dose 100 MG; Start 12/13/18 at 21:00 Aspirin (Halfprin) 81 mg DAILY PO Last administered on 01/01/19 08:31; Admin Dose 81 MG; Start 12/13/18 at 19:30 Senna (Senokot) 1 tab BID PO Last administered on 12/31/18 20:32; Admin Dose 1 TAB; Start 12/17/18 at 21:00 Acetaminophen (Tylenol Tab) 650 mg Q6H PRN PO PAIN LEVEL 1-3 OR FEVER Last administered on 12/21/18 05:01; Admin Dose 650 MG; Start 12/17/18 at 15:00 Albuterol/ Ipratropium (Duoneb) 3 ml Q6H RESP THERAPY PRN HHN sob Last administered on 12/19/18 03:51; Admin Dose 3 ML; Start 12/17/18 at 09:00 Docusate Sodium (Colace) 100 mg Q12H PRN PO CONSTIPATION Last administered on 12/21/18 05:01; Admin Dose 100 MG; Start 12/17/18 at 21:00 Ferrous Sulfate (Feosol Liquid Cup) 300 mg BID GTB Last administered on 01/01/19 20:21; Admin Dose 300 MG; Start 12/17/18 at 21:00 Guaifenesin/ Dextromethorphan (Robitussin Dm Liquid Cup) 5 ml Q4H PRN PO cough Last administered on 12/24/18 21:16; Admin Dose 5 ML; Start 12/17/18 at 18:00 Linagliptin (Tradjenta) 5 mg DAILY GTB Last administered on 01/01/19 08:30; Admin Dose 5 MG; Start 12/17/18 at 09:00 Folic Acid (Folic Acid) 1 mg DAILY GTB Last administered on 01/01/19 08:31; Admin Dose 1 MG; Start 12/18/18 at 09:00 Metoclopramide HCl (Reglan) 5 mg Q8 PRN IV VOMITTING; Start 12/20/18 at 10:00 IV Flush (NS 10 ml) 10 ml AFTER DIALYSIS CATHETER ; Start 12/22/18 at 10:00 Voriconazole (Vfend) 200 mg BID PO Last administered on 01/01/19 20:22; Admin Dose 200 MG; Start 12/22/18 at 11:00 Magnesium Hydroxide (Milk Of Mag) 30 ml DAILY PRN PO CONSTIPATION; Start 12/22/18 at 17:00 Sodium Chloride (NS) -To prime the dialy... DIRECTED FOR HD PRN IV HD; Start 12/23/18 at 16:00 Amlodipine Besylate (Norvasc) 5 mg DAILY GTB Last administered on 01/01/19 08:31; Admin Dose 5 MG; Start 12/25/18 at 15:30 Polyethylene Glycol (Miralax) 17 gm DAILY GTB Last administered on 12/31/18 08:59; Admin Dose 17 GM; Start 12/27/18 at 09:00 Metoclopramide HCl (Reglan) 5 mg Q8 IV Last administered on 01/01/19 22:33; Ad min Dose 5 MG; Start 12/27/18 at 22:00 Insulin Glargine (Lantus) 4 units DAILY@2000 SC Last administered on 01/01/19 20:29; Admin Dose 4 UNITS; Start 12/28/18 at 20:00 Miscellaneous Information 1 ea NOTE XX ; Start 12/28/18 at 19:00 Glucose (Glutose) 15 gm Q15M PRN PO DECREASED GLUCOSE; Start 12/28/18 at 19:00 Glucose (Glutose) 22.5 gm Q15M PRN PO DECREASED GLUCOSE; Start 12/28/18 at 19:00 Dextrose (D50w Syringe) 25 ml Q15M PRN IV DECREASED GLUCOSE; Start 12/28/18 at 19:00 Dextrose (D50w Syringe) 50 ml Q15M PRN IV DECREASED GLUCOSE; Start 12/28/18 at 19:00 Glucagon (Glucagen) 1 mg Q15M PRN IM DECREASED GLUCOSE; Start 12/28/18 at 19:00 Glucose (Glutose) 15 gm Q15M PRN BUCCAL DECREASED GLUCOSE; Start 12/28/18 at 19:00 Sevelamer Carbonate (Renvela) 1.6 gm TID NGT Last administered on 2/23/19at 20:19; Admin Dose 1.6 GM; Start 12/31/18 at 13:00 Meropenem/Sodium Chloride 50 ml @ 100 mls/hr Q24H IVPB Last administered on 12/31/18at 20:05; Admin Dose 100 MLS/HR; Start 12/31/18 at 20:00 SEVERO GARCIA NP Jan 01, 2019 22:54
[2019-01-02 02:40] VITALS: BP 103/49; RESP 20
[2019-01-02 08:09] VITALS: BP 124/56; PULSE 71; RESP 16
[2019-01-02] MEDS: FERROUS SULFATE 60 MG/ML 5ML CUP GTB SCH ×2 (09:46→21:36)
[2019-01-02] MEDS: FOLIC ACID 1 MG TAB GTB SCH (09:46)
[2019-01-02] MEDS: DOCUSATE SODIUM 10 MG/ML (10ML CUP) GTB SCH (09:46)
[2019-01-02] MEDS: METOPROLOL 50 MG TAB GTB SCH ×2 (09:47→21:37)
[2019-01-02] MEDS: AMLODIPINE 5 MG TAB GTB SCH (09:47)
[2019-01-02] MEDS: POLYETHYLENE GLYCOL 17 GM PACKET GTB SCH (09:47)
[2019-01-02] MEDS: LANSOPRAZOLE 30 MG CAP GTB SCH (09:47)
[2019-01-02] MEDS: SEVELAMER CARBONATE 0.8 GM PKT NGT SCH ×3 (09:48→21:36)
[2019-01-02] MEDS: ASPIRIN (EC) 81 MG TAB PO SCH (09:48)
[2019-01-02] MEDS: LINAGLIPTIN 5 MG TABLET GTB SCH (09:48)
[2019-01-02] MEDS: VORICONAZOLE 200 MG TAB PO SCH ×2 (09:48→21:36)
[2019-01-02] MEDS: SENNA TAB PO SCH ×2 (09:48→21:36)
[2019-01-02] MEDS: METOCLOPRAMIDE 5 MG TAB PO SCH ×3 (09:52→21:36)
[2019-01-02] MEDS: MULTIVIT/CA CARB/B CMPLX/FA TAB GTB SCH (09:52)
--- NOTE | 2019-01-02 14:04 | PN ---
DATE: 01/02/2019 The patient seen alert and talking, comfortable. PHYSICAL EXAMINATION: VITAL SIGNS: Temperature 99.1, pulse 71, respirations 16, blood pressure 124/56, saturation 96% on r oom air. GENERAL: No acute distress. Patient is frail, pale. CARDIOVASCULAR: S1, S2, regular rate. LUNGS: Clear. ABDOMEN: Soft, nontender. EXTREMITIES: No clubbing, cyanosis, or edema. LABORATORY DATA: White count improved to 10.4, hemoglobin 7.3, hematocrit 24, platelet count 206. C hemistry: Sodium is 134, potassium 4.4, chloride 97, bicarbonate 28, BUN 73, creatinine 2.91 and glu cose 166, the most recent one. The patient's medications were all reviewed. The patient remains on antibiotics with Merrem and also on Vfend. All other medications were reviewed. the patient does not have an ID. Case discu ssed with nursing staff. ASSESSMENT AND PLAN: This is an 83-year-old [place] female with end-stage renal disease, advanced d ementia, ASCVD, status post treatment for bacteremia, fungemia UTI, right hand hematoma status post e vacuation, treated for aspiration pneumonia recently, now again presented with worsening leukocytosis and episode of vomiting concerning for again aspiration. 1. Respiratory. Continue treatment with Merrem for aspiration pneumonia. White count is improved. 2. Dysphagia. Continue G-tube feeding. Speech therapy may follow but otherwise continue feeding at 30 mL an hour. More than that, patient may have high residual and vomit again. 3. Cardiovascular. Vitals are stable. 4. Diabetes mellitus. Continue Levemir and Tradjenta. 5. End-stage renal disease. 6. Dialysis due tomorrow. 7. Anemia. Continue Epogen. Transfuse p.r.n. 8. Urinary tract infection, on Vfend. 9. Mood disorder. Start low-dose Zyprexa 2.5 daily. Awaiting placement. Otherwise, we will follow. Dictated By: DYLON HULL/MADAN Conf#: [id number] DID#: [id number]
--- NOTE | 2019-01-02 14:32 | CONS ---
Assessment/Plan Assessment/Plan Hospital Course (Demo Recall) ID PROGRESS NOTE CURRENT ABX: DAY #=> VFEND #11 + Merrem #3 s/p Merrem # + Cancidas 01/02/1952101/02/19521 24H INTERVAL SUMMARY * Back to baseline after 2+ days of Merrem, WBC NORMALIZED TODAY * -- A/A/ responsive -- trying to communication, she smiles and feeling much better -- Yelling for nursing '' Hoy" * STARTED ON MERREM YESTERDAY THU ASPIRATION PNEUMONITIS * THURSDAY SHE WAS NOTED W/Increased lethargy, WBC elevated -- per RN she had episode of emesis -- suspect recurrent ASPIRATION EVENT * Indwelling: Left chest PermCath, PEG MICRO * 12/20/18 URINE Cx (+) Glabrata URINE CULTURE Final Organism 1 TYREE GLABRATA COLONY COUNT 30,000 - 40,000 CFU/ml * 12/20/18 BCx (-) * 12/18/18 BCx (-) * 12/06/18 URINE Cx (+) Glabrata * 12/03/18 BCx (-) * 12/01/18 BCx (-) * 11/29/18 BCx (+) Glabrata * 11/24/18 BCX (+) Glabrata = fungemia PHYSICAL EXAMINATION: GENERAL: Afebrile, VSS, HEENT: AT, NC, anicteric NECK: Supple, trach CHEST: Equal chest rise bilaterally, without dyspnea on observation HEART: Pulse RRR ABDOMEN: Soft / NT EXTREMITIES: Warm, dry SKIN: No rash, no diaphoresis ID ASSESSMENT 83 yo F w/ DEMENTIA admit with: 1. NEW ISSUE: (+)SIRS 12/31/18 w/Increased lethargy, WBC elevated 12.7-- per RN she had episode of emesis -- suspect recurrent ASPIRATION EVENT 2. Recurrent ASPIRATION PNEUMONITIS event 12/30/18 3. Recurrent C.GLABRATA UTIs == on 3 week course of VFEND * s/p FUNGEMIA == secondary to GLABRATA UTI => RESOLVED 4. Status post VRE bacteremia, status post new Pcath => RESOLVED 5. End-stage renal disease, hemodialysis dependent 6. Diabetes 7. Anemia 8. Failure to thrive - Frail cachectic w/dementia (-)MRSA Nares ABX ALLERGIES: KNDA INVASIVES: PIV, Left chest PermCath CURRENT ABX: DAY #=> VFEND #11 + Merrem #3 s/p Merrem # + Cancidas ID RECOMMENDATIONS/PLAN: NEW ISSUE-> Started Merrem 500mg IV Q12 for HCAP ASP PNA THU -- TODAY SHE SEEMS BACK TO BASELINE Continue on Vfend prolonged course due to recurrent symptomatic Glabrata UTI and hx of FUNGEMIA . Consultation Date/Type/Reason Admit Date/Time Nov 16, 2018 at 05:51 Initial Consult Date 11/16/18 Requesting Provider: DYLON WALLS MD Date/Time of Note DATE: 01/02/19 TIME: 14:28 Exam/Review of Systems Exam Vitals Vital Signs Date Temp Pulse Resp B/P (MAP) Pulse Ox O2 O2 Flow FiO2 Time Delivery Rate 01/02/19 99.1 71 16 124/56 96 08:09 (78) 01/01/19 21 15:47 01/01/19 Room Air 02:00 Intake and Output 01/01/19 01/01/19 01/02/19 1515:00 23:00 07:00 IntakeIntake Total 510 ml 960 ml BalanceBalance 510 ml 960 ml Results Result Diagram: 01/02/19 0522 01/02/19 0522 Results 24hrs Laboratory Tests Test 01/01/19 20:28 01/02/19 05:22 01/02/19 09:45 Bedside Glucose 191 166 White Blood Count 10.4 Red Blood Count 2.79 L Hemoglobin 7.3 L Hematocrit 23.5 L Mean Corpuscular Volume 84.2 Mean Corpuscular Hemoglobin 26.2 L Mean Corpuscular Hemoglobin Concent 31.1 L Red Cell Distribution Width 16.3 H Platelet Count 206 Mean Platelet Volume 12.2 H Immature Granulocytes % 0.600 H Neutrophils % 70.8 Lymphocytes % 11.9 L Monocytes % 11.7 H Eosinophils % 4.7 Basophils % 0.3 Nucleated Red Blood Cells % 0.6 H Immature Granulocytes # 0.060 H Neutrophils # 7.4 Lymphocytes # 1.2 Monocytes # 1.2 H Eosinophils # 0.5 Basophils # 0.0 Nucleated Red Blood Cells # 0.1 H Sodium Level 134 L Potassium Level 4.4 Chloride Level 97 Carbon Dioxide Level 28 Anion Gap 9 Blood Urea Nitrogen 73 #H Creatinine 2.91 #H Est Glomerular Filtrat Rate mL/min Glucose Level 140 # Calcium Level 8.6 Phosphorus Level 3.8 Magnesium Level 3.1 H Medications Medication Current Medications IV Flush (NS 3 ml) 3 ml PER PROTOCOL IV ; Start 11/16/18 at 09:00 Ondansetron HCl (Zofran Inj) 4 mg Q6H PRN IV NAUSEA AND/OR VOMITING Last administered on 12/31/18 11:45; Admin Dose 4 MG; Start 11/16/18 at 09:00 Hydralazine HCl (Apresoline) 10 mg Q4H PRN IV ELEVATED BLOOD PRESSURE Last administered on 12/22/18 19:40; Admin Dose 10 MG; Start 11/17/18 at 10:30 Acetaminophen/ Hydrocodone Bitart ([place] (5/325)) 1 tab Q3H PRN PO MODERATE PAIN LEVEL 4-6 Last administered on 12/26/18 22:10; Admin Dose 1 TAB; Start 11/17/18 at 14:30 Albumin Human 50 ml @ 100 mls/hr WITH DIALYSIS PRN IV SBP<90 Last administered on 12/31/18 15:54; Admin Dose 100 MLS/HR; Start 11/18/18 at 14:30 Morphine Sulfate (morphine) 6 mg Q4H PRN PO SEVERE PAIN LEVEL 7-10 Last administered on 12/30/18 09:15; Admin Dose 6 MG; Start 11/18/18 at 23:00 Docusate Sodium (Colace Liquid Cup) 100 mg DAILY GTB Last administered on 01/02/19 09:46; Admin Dose 100 MG; Start 11/19/18 at 09:30 Multivit/Ca Carb/ B Cmplx/FA/Prenat (Kianna-Roque) 1 tab DAILY GTB Last administered on 01/02/19 09:52; Admin Dose 1 TAB; Start 11/24/18 at 09:00 Lansoprazole (Prevacid) 30 mg DAILY GTB Last administered on 01/02/19 09:47; Admin Dose 30 MG; Start 11/26/18 at 09:00 Acetaminophen (Tylenol Supp) 650 mg Q4H PRN [place] MILD PAIN(1-3) OR TEMP>38C Last administered on 11/26/18 08:32; Admin Dose 650 MG; Start 11/26/18 at 08:30 Epoetin Michael (Epogen (Esrd)) 4,000 units MoWeFr@17 SC Last administered on 12/31/18 17:36; Admin Dose 4,000 UNITS; Start 12/06/18 at 17:00 Hydralazine HCl (Apresoline) 50 mg Q8 PO Last administered on 01/01/19 22:33; Admin Dose 50 MG; Start 12/07/18 at 22:00 Metoprolol Tartrate (Lopressor) 100 mg BID GTB Last administered on 01/02/19 09:47; Admin Dose 100 MG; Start 12/13/18 at 21:00 Aspirin (Halfprin) 81 mg DAILY PO Last administered on 01/02/19 09:48; Admin Dose 81 MG; Start 12/13/18 at 19:30 Senna (Senokot) 1 tab BID PO Last administered on 01/02/19 09:48; Admin Dose 1 TAB; Start 12/17/18 at 21:00 Acetaminophen (Tylenol Tab) 650 mg Q6H PRN PO PAIN LEVEL 1-3 OR FEVER Last administered on 12/21/18 05:01; Admin Dose 650 MG; Start 12/17/18 at 15:00 Albuterol/ Ipratropium (Duoneb) 3 ml Q6H RESP THERAPY PRN HHN sob Last administered on 12/19/18 03:51; Admin Dose 3 ML; Start 12/17/18 at 09:00 Docusate Sodium (Colace) 100 mg Q12H PRN PO CONSTIPATION Last administered on 12/21/18 05:01; Admin Dose 100 MG; Start 12/17/18 at 21:00 Ferrous Sulfate (Feosol Liquid Cup) 300 mg BID GTB Last administered on 01/02/19 09:46; Admin Dose 300 MG; Start 12/17/18 at 21:00 Guaifenesin/ Dextromethorphan (Robitussin Dm Liquid Cup) 5 ml Q4H PRN PO cough Last administered on 12/24/18 21:16; Admin Dose 5 ML; Start 12/17/18 at 18:00 Linagliptin (Tradjenta) 5 mg DAILY GTB Last administered on 01/02/19 09:48; Admin Dose 5 MG; Start 12/17/18 at 09:00 Folic Acid (Folic Acid) 1 mg DAILY GTB Last administered on 01/02/19 09:46; Admin Dose 1 MG; Start 12/18/18 at 09:00 Metoclopramide HCl (Reglan) 5 mg Q8 PRN IV VOMITTING; Start 12/20/18 at 10:00 IV Flush (NS 10 ml) 10 ml AFTER DIALYSIS CATHETER ; Start 12/22/18 at 10:00 Voriconazole (Vfend) 200 mg BID PO Last administered on 01/02/19 09:48; Admin Dose 200 MG; Start 12/22/18 at 11:00 Magnesium Hydroxide (Milk Of Mag) 30 ml DAILY PRN PO CONSTIPATION; Start 12/22/18 at 17:00 Sodium Chloride (NS) -To prime the dialy... DIRECTED FOR HD PRN IV HD; Start 12/23/18 at 16:00 Amlodipine Besylate (Norvasc) 5 mg DAILY GTB Last administered on 01/02/19 09:47; Admin Dose 5 MG; Start 12/25/18 at 15:30 Polyethylene Glycol (Miralax) 17 gm DAILY GTB Last administered on 01/02/19 09:47; Admin Dose 17 GM; Start 12/27/18 at 09:00 Insulin Glargine (Lantus) 4 units DAILY@2000 SC Last administered on 01/01/19 20:29; Admin Dose 4 UNITS; Start 12/28/18 at 20:00 Miscellaneous Information 1 ea NOTE XX ; Start 12/28/18 at 19:00 Glucose (Glutose) 15 gm Q15M PRN PO DECREASED GLUCOSE; Start 12/28/18 at 19:00 Glucose (Glutose) 22.5 gm Q15M PRN PO DECREASED GLUCOSE; Start 12/28/18 at 19:00 Dextrose (D50w Syringe) 25 ml Q15M PRN IV DECREASED GLUCOSE; Start 12/28/18 at 19:00 Dextrose (D50w Syringe) 50 ml Q15M PRN IV DECREASED GLUCOSE; Start 12/28/18 at 19:00 Glucagon (Glucagen) 1 mg Q15M PRN IM DECREASED GLUCOSE; Start 12/28/18 at 19:00 Glucose (Glutose) 15 gm Q15M PRN BUCCAL DECREASED GLUCOSE; Start 12/28/18 at 19:00 Sevelamer Carbonate (Renvela) 1.6 gm TID NGT Last administered on 01/02/19at 09:48; Admin Dose 1.6 GM; Start 12/31/18 at 13:00 Meropenem/Sodium Chloride 50 ml @ 100 mls/hr Q24H IVPB Last administered on 12/31/18at 20:05; Admin Dose 100 MLS/HR; Start 12/31/18 at 20:00 Metoclopramide HCl (Reglan) 5 mg Q8 PO Last administered on 01/02/19at 09:52; Admin Dose 5 MG; Start 01/02/19 at 07:00 Olanzapine (Zyprexa) 2.5 mg DAILY PO ; Start 01/03/19 at 09:00 SEVERO GARCIA NP Jan 02, 2019 14:32
--- NOTE | 2019-01-02 14:34 | CONS ---
Assessment/Plan Assessment/Plan Assessment/Plan (Daily) 1. UGIB manifested through melena and anemia -no melena noted or GI bleeding noted by nursing staff -RESOLVED 2. Anemia, acute on chronic, acute likely due to blood loss in rt hand -No evidence of active GI bleeding, consider etiology of blood loss anemia to be from hematoma in hand -Fe wnl, TIBC low, Ferritin, folate, b12 high, FOB neg -STABLE 3. ESRD on HD -Followed by nephrology 4. Hematoma of Rt hand and wrist -I and D drainage by Dr. Dean 11/17 -IMPROVED 5. Dysphagia -on tube feeds and pureed nectar for oral gratification 6. DM2 7. HTN 8. H/O diastolic dysfunction heart failure 9. S/P EGD 11/18 10. Moderate gastritis with no bleeding noted. 11. Hospital acquired pneumonia -improved 12. Yeast in urine cx -cx 12/20 12. Emesis -pt had another episode of emesis this am of just her medications after they were given. Residuals were 15cc prior to giving medications. The emesis contained only the medications no tube feeds. Gastric biopsy results: Stomach, biopsy: -- Antral and oxyntic mucosa showing minimal plasma cell infiltration and small focus of intestinal metaplasia. -- No Helicobacter pylori is identified in Giemsa stain (positive control concurrently reviewed). -- No evidence of dysplasia or malignancy. Plan: Consider GJ tube if unable to tolerate feeding and there is evidence of aspiration Give medications in small doses Reglan 5 mg prior to meals, low dose to due ESRD Continue present care Monitor HH closely and for active GI bleeding, Patient did not tolerate feeding at 45 cc/h. Feeding is going at 30 cc/h. If despite this she continues to have vomiting then consider gastrojejunostomy tube Patient is tolerating feeding at 30 cc/h Consultation Date/Type/Reason Admit Date/Time Nov 16, 2018 at 05:51 Initial Consult Date 11/16/18 Requesting Provider: DYLON WALLS MD Date/Time of Note DATE: 01/02/19 TIME: 14:34 24 HR Interval Summary Constitutional: no complaints, improved Exam/Review of Systems Exam Vitals Vital Signs Date Temp Pulse Resp B/P (MAP) Pulse Ox O2 O2 Flow FiO2 Time Delivery Rate 01/02/19 99.1 71 16 124/56 96 08:09 (78) 01/01/19 21 15:47 01/01/19 Room Air 02:00 Intake and Output 01/01/19 01/01/19 01/02/19 1515:00 23:00 07:00 IntakeIntake Total 510 ml 960 ml BalanceBalance 510 ml 960 ml Constitutional: alert, oriented, well developed Psych: no complaints, nl mood/affect Head: normocephalic, atraumatic Eyes: nl conjunctiva, EOMI, nl lids, nl sclera, PERRL ENMT: nl external ears & nose, nl lips & teeth, nl nasal mucosa & septum Neck: supple, non-tender Respiratory: clear to auscultation, normal air movement Cardiovascular: regular rate and rhythm, nl pulses Gastrointestinal: soft, nl liver, spleen, non-tender Musculoskeletal: nl extremities to inspection, nl gait and stance Extremities: normal pulses 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: CLOTH COLORER II-XII intact, nl mental status, nl speech, nl strength Skin: nl turgor; No rash or lesions Lymph: nl lymph nodes Results Result Diagram: 01/02/1952101/02/19521 Results 24hrs Laboratory Tests Test 01/01/19 20:28 01/02/19 05:22 01/02/19 09:45 Bedside Glucose 191 166 White Blood Count 10.4 Red Blood Count 2.79 L Hemoglobin 7.3 L Hematocrit 23.5 L Mean Corpuscular Volume 84.2 Mean Corpuscular Hemoglobin 26.2 L Mean Corpuscular Hemoglobin Concent 31.1 L Red Cell Distribution Width 16.3 H Platelet Count 206 Mean Platelet Volume 12.2 H Immature Granulocytes % 0.600 H Neutrophils % 70.8 Lymphocytes % 11.9 L Monocytes % 11.7 H Eosinophils % 4.7 Basophils % 0.3 Nucleated Red Blood Cells % 0.6 H Immature Granulocytes # 0.060 H Neutrophils # 7.4 Lymphocytes # 1.2 Monocytes # 1.2 H Eosinophils # 0.5 Basophils # 0.0 Nucleated Red Blood Cells # 0.1 H Sodium Level 134 L Potassium Level 4.4 Chloride Level 97 Carbon Dioxide Level 28 Anion Gap 9 Blood Urea Nitrogen 73 #H Creatinine 2.91 #H Est Glomerular Filtrat Rate mL/min Glucose Level 140 # Calcium Level 8.6 Phosphorus Level 3.8 Magnesium Level 3.1 H Medications Medication Current Medications IV Flush (NS 3 ml) 3 ml PER PROTOCOL IV ; Start 1/8/19 at 09:00 Ondansetron HCl (Zofran Inj) 4 mg Q6H PRN IV NAUSEA AND/OR VOMITING Last administered on 12/31/18 11:45; Admin Dose 4 MG; Start 11/16/18 at 09:00 Hydralazine HCl (Apresoline) 10 mg Q4H PRN IV ELEVATED BLOOD PRESSURE Last administered on 12/22/18 19:40; Admin Dose 10 MG; Start 11/17/18 at 10:30 Acetaminophen/ Hydrocodone Bitart ([place] (5/325)) 1 tab Q3H PRN PO MODERATE PAIN LEVEL 4-6 Last administered on 12/26/18 22:10; Admin Dose 1 TAB; Start 11/17/18 at 14:30 Albumin Human 50 ml @ 100 mls/hr WITH DIALYSIS PRN IV SBP<90 Last administered on 12/31/18 15:54; Admin Dose 100 MLS/HR; Start 11/18/18 at 14:30 Morphine Sulfate (morphine) 6 mg Q4H PRN PO SEVERE PAIN LEVEL 7-10 Last a dministered on 12/30/18 09:15; Admin Dose 6 MG; Start 11/18/18 at 23:00 Docusate Sodium (Colace Liquid Cup) 100 mg DAILY GTB Last administered on 01/02/19 09:46; Admin Dose 100 MG; Start 11/19/18 at 09:30 Multivit/Ca Carb/ B Cmplx/FA/Prenat (Kianna-Roque) 1 tab DAILY GTB Last administered on 01/02/19 09:52; Admin Dose 1 TAB; Start 11/24/18 at 09:00 Lansoprazole (Prevacid) 30 mg DAILY GTB Last administered on 01/02/19 09:47; Admin Dose 30 MG; Start 11/26/18 at 09:00 Acetaminophen (Tylenol Supp) 650 mg Q4H PRN [place] MILD PAIN(1-3) OR TEMP>38C Last administered on 11/26/18 08:32; Admin Dose 650 MG; Start 11/26/18 at 08:30 Epoetin Michael (Epogen (Esrd)) 4,000 units MoWeFr@17 SC Last administered on 12/31/18 17:36; Admin Dose 4,000 UNITS; Start 12/06/18 at 17:00 Hydralazine HCl (Apresoline) 50 mg Q8 PO Last administered on 01/01/19 22:33; Admin Dose 50 MG; Start 12/07/18 at 22:00 Metoprolol Tartrate (Lopressor) 100 mg BID GTB Last administered on 01/02/19 09:47; Admin Dose 100 MG; Start 12/13/18 at 21:00 Aspirin (Halfprin) 81 mg DAILY PO Last administered on 01/02/19 09:48; Admin Dose 81 MG; Start 12/13/18 at 19:30 Senna (Senokot) 1 tab BID PO Last administered on 01/02/19 09:48; Admin Dose 1 TAB; Start 12/17/18 at 21:00 Acetaminophen (Tylenol Tab) 650 mg Q6H PRN PO PAIN LEVEL 1-3 OR FEVER Last administered on 12/21/18 05:01; Admin Dose 650 MG; Start 12/17/18 at 15:00 Albuterol/ Ipratropium (Duoneb) 3 ml Q6H RESP THERAPY PRN HHN sob Last administered on 12/19/18 03:51; Admin Dose 3 ML; Start 12/17/18 at 09:00 Docusate Sodium (Colace) 100 mg Q12H PRN PO CONSTIPATION Last administered on 12/21/18 05:01; Admin Dose 100 MG; Start 12/17/18 at 21:00 Ferrous Sulfate (Feosol Liquid Cup) 300 mg BID GTB Last administered on 01/02/19 09:46; Admin Dose 300 MG; Start 12/17/18 at 21:00 Guaifenesin/ Dextromethorphan (Robitussin Dm Liquid Cup) 5 ml Q4H PRN PO cough Last administered on 12/24/18 21:16; Admin Dose 5 ML; Start 12/17/18 at 18:00 Linagliptin (Tradjenta) 5 mg DAILY GTB Last administered on 01/02/19 09:48; Admin Dose 5 MG; Start 12/17/18 at 09:00 Folic Acid (Folic Acid) 1 mg DAILY GTB Last administered on 01/02/19 09:46; Admin Dose 1 MG; Start 12/18/18 at 09:00 Metoclopramide HCl (Reglan) 5 mg Q8 PRN IV VOMITTING; Start 12/20/18 at 10:00 IV Flush (NS 10 ml) 10 ml AFTER DIALYSIS CATHETER ; Start 12/22/18 at 10:00 Voriconazole (Vfend) 200 mg BID PO Last administered on 01/02/19 09:48; Admin Dose 200 MG; Start 12/22/18 at 11:00 Magnesium Hydroxide (Milk Of Mag) 30 ml DAILY PRN PO CONSTIPATION; Start 12/22/18 at 17:00 Sodium Chloride (NS) -To prime the dialy... DIRECTED FOR HD PRN IV HD; Start 12/23/18 at 16:00 Amlodipine Besylate (Norvasc) 5 mg DAILY GTB Last administered on 01/02/19 09:47; Admin Dose 5 MG; Start 12/25/18 at 15:30 Polyethylene Glycol (Miralax) 17 gm DAILY GTB Last administered on 01/02/19 09:47; Admin Dose 17 GM; Start 12/27/18 at 09:00 Insulin Glargine (Lantus) 4 units DAILY@2000 SC Last administered on 01/01/19 20:29; Admin Dose 4 UNITS; Start 12/28/18 at 20:00 Miscellaneous Information 1 ea NOTE XX ; Start 12/28/18 at 19:00 Glucose (Glutose) 15 gm Q15M PRN PO DECREASED GLUCOSE; Start 12/28/18 at 19:00 Glucose (Glutose) 22.5 gm Q15M PRN PO DECREASED GLUCOSE; Start 12/28/18 at 19:00 Dextrose (D50w Syringe) 25 ml Q15M PRN IV DECREASED GLUCOSE; Start 12/28/18 at 19:00 Dextrose (D50w Syringe) 50 ml Q15M PRN IV DECREASED GLUCOSE; Start 12/28/18 at 19:00 Glucagon (Glucagen) 1 mg Q15M PRN IM DECREASED GLUCOSE; Start 12/28/18 at 19:00 Glucose (Glutose) 15 gm Q15M PRN BUCCAL DECREASED GLUCOSE; Start 12/28/18 at 19:00 Sevelamer Carbonate (Renvela) 1.6 gm TID NGT Last administered on 01/02/19 09:48; Admin Dose 1.6 GM; Start 12/31/18 at 13:00 Meropenem/Sodium Chloride 50 ml @ 100 mls/hr Q24H IVPB Last administered on 12/31/18at 20:05; Admin Dose 100 MLS/HR; Start 12/31/18 at 20:00 Metoclopramide HCl (Reglan) 5 mg Q8 PO Last administered on 01/02/19at 09:52; Admin Dose 5 MG; Start 01/02/19 at 07:00 Olanzapine (Zyprexa) 2.5 mg DAILY PO ; Start 01/03/19 at 09:00 CHRISS WELCH MD Jan 02, 2019 14:34
[2019-01-02 14:36] VITALS: BP 114/54; PULSE 68; RESP 16
--- NOTE | 2019-01-02 17:06 | CONS ---
Assessment/Plan Assessment/Plan Hospital Course (Demo Recall) 1. End-stage renal disease on hemodialysis. 2. Gastrointestinal bleed with melena, resolved. 3. Hypertension, controlled. 4. Diabetes mellitus type II controlled. 5. Right hand swelling, s/p I and D on 11/17/18 6. History of falls. 7. Vascular dementia. 8. History of sepsis with VRE. 9. Dysphagia, status post G-tube. 10. History of hip fracture. 11. Thrombocytopenia. 12. Atherosclerotic heart disease. 13. Pneumonia left side, resolved 14. Anemia 15. Fungemia. 16. UTI PLAN CONTINUE HD Consultation Date/Type/Reason Admit Date/Time Nov 16, 2018 at 05:51 Initial Consult Date 11/16/18 Type of Consult renal no sob no sitter no leg edema Requesting Provider: DYLON WALLS MD Date/Time of Note DATE: 01/02/19 TIME: 17:05 Exam/Review of Systems Exam Vitals Vital Signs Date Temp Pulse Resp B/P (MAP) Pulse Ox O2 O2 Flow FiO2 Time Delivery Rate 01/02/19 98.5 68 16 114/54 98 14:36 (74) 01/01/19 21 15:47 01/01/19 Room Air 02:00 Intake and Output 01/01/19 01/01/19 01/02/19 1515:00 23:00 07:00 IntakeIntake Total 510 ml 960 ml BalanceBalance 510 ml 960 ml Respiratory: clear to auscultation Cardiovascular: regular rate and rhythm Gastrointestinal: soft, bowel sounds Extremities: normal pulses 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: [employer] II-XII intact Results Result Diagram: 01/02/1952101/02/19521 Results 24hrs Laboratory Tests Test 01/01/19 20:28 01/02/19 05:22 01/02/19 09:45 Bedside Glucose 191 166 White Blood Count 10.4 Red Blood Count 2.79 L Hemoglobin 7.3 L Hematocrit 23.5 L Mean Corpuscular Volume 84.2 Mean Corpuscular Hemoglobin 26.2 L Mean Corpuscular Hemoglobin Concent 31.1 L Red Cell Distribution Width 16.3 H Platelet Count 206 Mean Platelet Volume 12.2 H Immature Granulocytes % 0.600 H Neutrophils % 70.8 Lymphocytes % 11.9 L Monocytes % 11.7 H Eosinophils % 4.7 Basophils % 0.3 Nucleated Red Blood Cells % 0.6 H Immature Granulocytes # 0.060 H Neutrophils # 7.4 Lymphocytes # 1.2 Monocytes # 1.2 H Eosinophils # 0.5 Basophils # 0.0 Nucleated Red Blood Cells # 0.1 H Sodium Level 134 L Potassium Level 4.4 Chloride Level 97 Carbon Dioxide Level 28 Anion Gap 9 Blood Urea Nitrogen 73 #H Creatinine 2.91 #H Est Glomerular Filtrat Rate mL/min Glucose Level 140 # Calcium Level 8.6 Phosphorus Level 3.8 Magnesium Level 3.1 H Medications Medication Current Medications IV Flush (NS 3 ml) 3 ml PER PROTOCOL IV ; Start 11/16/18 at 09:00 Ondansetron HCl (Zofran Inj) 4 mg Q6H PRN IV NAUSEA AND/OR VOMITING Last administered on 12/31/18 11:45; Admin Dose 4 MG; Start 11/16/18 at 09:00 Hydralazine HCl (Apresoline) 10 mg Q4H PRN IV ELEVATED BLOOD PRESSURE Last administered on 12/22/18 19:40; Admin Dose 10 MG; Start 11/17/18 at 10:30 Acetaminophen/ Hydrocodone Bitart ([place] (5/325)) 1 tab Q3H PRN PO MODERATE PAIN LEVEL 4-6 Last administered on 12/26/18 22:10; Admin Dose 1 TAB; Start 11/17/18 at 14:30 Albumin Human 50 ml @ 100 mls/hr WITH DIALYSIS PRN IV SBP<90 Last administered on 12/31/18 15:54; Admin Dose 100 MLS/HR; Start 11/18/18 at 14:30 Morphine Sulfate (morphine) 6 mg Q4H PRN PO SEVERE PAIN LEVEL 7-10 Last administered on 12/30/18 09:15; Admin Dose 6 MG; Start 11/18/18 at 23:00 Docusate Sodium (Colace Liquid Cup) 100 mg DAILY GTB Last administered on 01/02/19 09:46; Admin Dose 100 MG; Start 11/19/18 at 09:30 Multivit/Ca Carb/ B Cmplx/FA/Prenat (Kianna-Roque) 1 tab DAILY GTB Last administered on 01/02/19 09:52; Admin Dose 1 TAB; Start 11/24/18 at 09:00 Lansoprazole (Prevacid) 30 mg DAILY GTB Last administered on 01/02/19 09:47; Admin Dose 30 MG; Start 11/26/18 at 09:00 Acetaminophen (Tylenol Supp) 650 mg Q4H PRN [place] MILD PAIN(1-3) OR TEMP>38C Last administered on 11/26/18 08:32; Admin Dose 650 MG; Start 11/26/18 at 08:30 Epoetin Michael (Epogen (Esrd)) 4,000 units MoWeFr@17 SC Last administered on 12/31/18 17:36; Admin Dose 4,000 UNITS; Start 12/06/18 at 17:00 Hydralazine HCl (Apresoline) 50 mg Q8 PO Last administered on 01/02/19 15:43; Admin Dose 50 MG; Start 12/07/18 at 22:00 Metoprolol Tartrate (Lopressor) 100 mg BID GTB Last administered on 01/02/19 09:47; Admin Dose 100 MG; Start 12/13/18 at 21:00 Aspirin (Halfprin) 81 mg DAILY PO Last administered on 01/02/19 09:48; Admin Dose 81 MG; Start 12/13/18 at 19:30 Senna (Senokot) 1 tab BID PO Last administered on 01/02/19 09:48; Admin Dose 1 TAB; Start 12/17/18 at 21:00 Acetaminophen (Tylenol Tab) 650 mg Q6H PRN PO PAIN LEVEL 1-3 OR FEVER Last administered on 12/21/18 05:01; Admin Dose 650 MG; Start 12/17/18 at 15:00 Albuterol/ Ipratropium (Duoneb) 3 ml Q6H RESP THERAPY PRN HHN sob Last administered on 12/19/18 03:51; Admin Dose 3 ML; Start 12/17/18 at 09:00 Docusate Sodium (Colace) 100 mg Q12H PRN PO CONSTIPATION Last administered on 12/21/18 05:01; Admin Dose 100 MG; Start 12/17/18 at 21:00 Ferrous Sulfate (Feosol Liquid Cup) 300 mg BID GTB Last administered on 01/02/19 09:46; Admin Dose 300 MG; Start 12/17/18 at 21:00 Guaifenesin/ Dextromethorphan (Robitussin Dm Liquid Cup) 5 ml Q4H PRN PO cough Last administered on 12/24/18 21:16; Admin Dose 5 ML; Start 12/17/18 at 18:00 Linagliptin (Tradjenta) 5 mg DAILY GTB Last administered on 01/02/19 09:48; Admin Dose 5 MG; Start 12/17/18 at 09:00 Folic Acid (Folic Acid) 1 mg DAILY GTB Last administered on 01/02/19 09:46; Admin Dose 1 MG; Start 12/18/18 at 09:00 Metoclopramide HCl (Reglan) 5 mg Q8 PRN IV VOMITTING; Start 12/20/18 at 10:00 IV Flush (NS 10 ml) 10 ml AFTER DIALYSIS CATHETER ; Start 12/22/18 at 10:00 Voriconazole (Vfend) 200 mg BID PO Last administered on 01/02/19 09:48; Admin Dose 200 MG; Start 12/22/18 at 11:00 Magnesium Hydroxide (Milk Of Mag) 30 ml DAILY PRN PO CONSTIPATION; Start 12/22/18 at 17:00 Sodium Chloride (NS) -To prime the dialy... DIRECTED FOR HD PRN IV HD; Start 12/23/18 at 16:00 Amlodipine Besylate (Norvasc) 5 mg DAILY GTB Last administered on 01/02/19 09:47; Admin Dose 5 MG; Start 12/25/18 at 15:30 Polyethylene Glycol (Miralax) 17 gm DAILY GTB Last administered on 01/02/19 09:47; Admin Dose 17 GM; Start 12/27/18 at 09:00 Insulin Glargine (Lantus) 4 units DAILY@2000 SC Last administered on 01/01/19 20:29; Admin Dose 4 UNITS; Start 12/28/18 at 20:00 Miscellaneous Information 1 ea NOTE XX ; Start 12/28/18 at 19:00 Glucose (Glutose) 15 gm Q15M PRN PO DECREASED GLUCOSE; Start 12/28/18 at 19:00 Glucose (Glutose) 22.5 gm Q15M PRN PO DECREASED GLUCOSE; Start 12/28/18 at 19:00 Dextrose (D50w Syringe) 25 ml Q15M PRN IV DECREASED GLUCOSE; Start 12/28/18 at 19:00 Dextrose (D50w Syringe) 50 ml Q15M PRN IV DECREASED GLUCOSE; Start 12/28/18 at 19:00 Glucagon (Glucagen) 1 mg Q15M PRN IM DECREASED GLUCOSE; Start 12/28/18 at 19:00 Glucose (Glutose) 15 gm Q15M PRN BUCCAL DECREASED GLUCOSE; Start 12/28/18 at 19:00 Sevelamer Carbonate (Renvela) 1.6 gm TID NGT Last administered on 01/02/19at 15 :43; Admin Dose 1.6 GM; Start 12/31/18 at 13:00 Meropenem/Sodium Chloride 50 ml @ 100 mls/hr Q24H IVPB Last administered on 12/31/18at 20:05; Admin Dose 100 MLS/HR; Start 12/31/18 at 20:00 Metoclopramide HCl (Reglan) 5 mg Q8 PO Last administered on 01/02/19at 15:43; Admin Dose 5 MG; Start 01/02/19 at 07:00 Olanzapine (Zyprexa) 2.5 mg DAILY PO ; Start 01/03/19 at 09:00 GEOFF KATHLEEN MD Jan 02, 2019 17:06
[2019-01-02] MEDS: MEROPENEM 500MG/50 ML (PMX) 50 ML IVPB SCH (20:00)
[2019-01-02 20:45] VITALS: BP 112/54; PULSE 74; RESP 18
[2019-01-02] MEDS: INSULIN GLARGINE [LANTus] (100 UNITS/ML) SYG SC SCH (21:38)
[2019-01-03] VITALS (18 sets, daily range): BP systolic 82–160; BP diastolic 45–72; PULSE 59–76; RESP 16–18
[2019-01-03] MEDS: METOCLOPRAMIDE 5 MG TAB PO SCH ×3 (06:30→21:07)
[2019-01-03] MEDS: DOCUSATE SODIUM 10 MG/ML (10ML CUP) GTB SCH (08:16)
[2019-01-03] MEDS: FERROUS SULFATE 60 MG/ML 5ML CUP GTB SCH ×2 (08:16→20:45)
[2019-01-03] MEDS: LANSOPRAZOLE 30 MG CAP GTB SCH (08:16)
[2019-01-03] MEDS: LINAGLIPTIN 5 MG TABLET GTB SCH (08:16)
[2019-01-03] MEDS: VORICONAZOLE 200 MG TAB PO SCH ×2 (08:16→20:45)
[2019-01-03] MEDS: MULTIVIT/CA CARB/B CMPLX/FA TAB GTB SCH (08:16)
[2019-01-03] MEDS: FOLIC ACID 1 MG TAB GTB SCH (08:17)
[2019-01-03] MEDS: OLANZAPINE 2.5 MG TAB PO SCH (08:17)
[2019-01-03] MEDS: SENNA TAB PO SCH ×2 (08:17→21:00)
[2019-01-03] MEDS: SEVELAMER CARBONATE 0.8 GM PKT NGT SCH ×3 (08:17→20:45)
[2019-01-03] MEDS: ASPIRIN (EC) 81 MG TAB PO SCH (08:17)
[2019-01-03] MEDS: POLYETHYLENE GLYCOL 17 GM PACKET GTB SCH (08:17)
[2019-01-03] MEDS: METOPROLOL 50 MG TAB GTB SCH ×3 (08:29→20:46)
[2019-01-03] MEDS: AMLODIPINE 5 MG TAB GTB SCH (08:29)
--- NOTE | 2019-01-03 09:32 | CONS ---
Assessment/Plan Assessment/Plan Hospital Course (Demo Recall) 83 yo female in ESRD on HD presents for melena and anemia and also found to have edematous Rt hand/wrist Interval Hx: No acute changes. Tolerating tube feeds at 30cc. No evidence of GI bleeding. 1. UGIB manifested through melena and anemia -no melena noted or GI bleeding noted by nursing staff -RESOLVED 2. Anemia, acute on chronic, acute likely due to blood loss in rt hand -No evidence of active GI bleeding, consider etiology of blood loss anemia to be from hematoma in hand -Fe wnl, TIBC low, Ferritin, folate, b12 high, FOB neg -likely due to chronic disease 3. ESRD on HD -Followed by nephrology 4. Hematoma of Rt hand and wrist -I and D drainage by Dr. Dean 11/17 -IMPROVED 5. Dysphagia -on tube feeds 6. DM2 7. HTN 8. H/O diastolic dysfunction heart failure 9. S/P EGD 11/18 10. Moderate gastritis with no bleeding noted. 11. Hospital acquired pneumonia -improved 12. Yeast in urine cx -cx 12/20 12. Emesis -pt had another episode of emesis this am of just her medications after they were given. Residuals were 15cc prior to giving medications. The emesis contained only the medications no tube feeds. Gastric biopsy results: Stomach, biopsy: -- Antral and oxyntic mucosa showing minimal plasma cell infiltration and small focus of intestinal metaplasia. -- No Helicobacter pylori is identified in Giemsa stain (positive control concurrently reviewed). -- No evidence of dysplasia or malignancy. Plan: Consider GJ tube if pt continues to have episodes of vomiting Give medications in small doses Reglan 5 mg prior to meals, low dose to due ESRD Continue present care Monitor HH closely and for active GI bleeding, Pt examined and plan of care discussed with Dr. Baird Consultation Date/Type/Reason Admit Date/Time Nov 16, 2018 at 05:51 Initial Consult Date 11/16/18 Requesting Provider: DYLON WALLS MD Date/Time of Note DATE: 01/03/19 TIME: 09:29 Exam/Review of Systems Exam Vitals Vital Signs Date Temp Pulse Resp B/P (MAP) Pulse Ox O2 O2 Flow FiO2 Time Delivery Rate 01/03/19 97.8 72 18 130/72 97 08:40 (91) 01/01/19 21 15:47 01/01/19 Room Air 02:00 Intake and Output 01/02/19 01/02/19 01/03/19 1515:00 23:00 07:00 IntakeIntake Total 510 ml BalanceBalance 510 ml Constitutional: alert Psych: no complaints Eyes: PERRL ENMT: mucosa pink and moist Respiratory: clear to auscultation Cardiovascular: regular rate and rhythm Gastrointestinal: soft, non-tender 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: confused Results Result Diagram: 01/02/1952101/02/19 05 Results 24hrs Laboratory Tests Test 01/02/19 09:45 01/02/19 21:35 01/03/19 08:00 Bedside Glucose 166 173 151 Medications Medication Current Medications IV Flush (NS 3 ml) 3 ml PER PROTOCOL IV ; Start 11/16/18 at 09:00 Ondansetron HCl (Zofran Inj) 4 mg Q6H PRN IV NAUSEA AND/OR VOMITING Last administered on 12/31/18 11:45; Admin Dose 4 MG; Start 11/16/18 at 09:00 Hydralazine HCl (Apresoline) 10 mg Q4H PRN IV ELEVATED BLOOD PRESSURE Last administered on 12/22/18 19:40; Admin Dose 10 MG; Start 11/17/18 at 10:30 Acetaminophen/ Hydrocodone Bitart ([place] (5/325)) 1 tab Q3H PRN PO MODERATE PAIN LEVEL 4-6 Last administered on 12/26/18 22:10; Admin Dose 1 TAB; Start 11/17/18 at 14:30 Albumin Human 50 ml @ 100 mls/hr WITH DIALYSIS PRN IV SBP<90 Last administered on 12/31/18 15:54; Admin Dose 100 MLS/HR; Start 11/18/18 at 14:30 Morphine Sulfate (morphine) 6 mg Q4H PRN PO SEVERE PAIN LEVEL 7-10 Last administered on 12/30/18 09:15; Admin Dose 6 MG; Start 11/18/18 at 23:00 Docusate Sodium (Colace Liquid Cup) 100 mg DAILY GTB Last administered on 01/03/19 08:16; Admin Dose 100 MG; Start 11/19/18 at 09:30 Multivit/Ca Carb/ B Cmplx/FA/Prenat (Kianna-Roque) 1 tab DAILY GTB Last administered on 01/03/19 08:16; Admin Dose 1 TAB; Start 11/24/18 at 09:00 Lansoprazole (Prevacid) 30 mg DAILY GTB Last administered on 01/03/19 08:16; Admin Dose 30 MG; Start 11/26/18 at 09:00 Acetaminophen (Tylenol Supp) 650 mg Q4H PRN [place] MILD PAIN(1-3) OR TEMP>38C Last administered on 11/26/18 08:32; Admin Dose 650 MG; Start 11/26/18 at 08:30 Epoetin Michael (Epogen (Esrd)) 4,000 units MoWeFr@17 SC Last administered on 12/31/18 17:36; Admin Dose 4,000 UNITS; Start 12/06/18 at 17:00 Hydralazine HCl (Apresoline) 50 mg Q8 PO Last administered on 01/03/19 06:30; Admin Dose 50 MG; Start 12/07/18 at 22:00 Metoprolol Tartrate (Lopressor) 100 mg BID GTB Last administered on 01/02/19 21:37; Admin Dose 100 MG; Start 12/13/18 at 21:00 Aspirin (Halfprin) 81 mg DAILY PO Last administered on 01/03/19 08:17; Admin Dose 81 MG; Start 12/13/18 at 19:30 Senna (Senokot) 1 tab BID PO Last administered on 01/03/19 08:17; Admin Dose 1 TAB; Start 12/17/18 at 21:00 Acetaminophen (Tylenol Tab) 650 mg Q6H PRN PO PAIN LEVEL 1-3 OR FEVER Last administered on 12/21/18 05:01; Admin Dose 650 MG; Start 12/17/18 at 15:00 Albuterol/ Ipratropium (Duoneb) 3 ml Q6H RESP THERAPY PRN HHN sob Last administered on 12/19/18 03:51; Admin Dose 3 ML; Start 12/17/18 at 09:00 Docusate Sodium (Colace) 100 mg Q12H PRN PO CONSTIPATION Last administered on 12/21/18 05:01; Admin Dose 100 MG; Start 12/17/18 at 21:00 Ferrous Sulfate (Feosol Liquid Cup) 300 mg BID GTB Last administered on 01/03/19 08:16; Admin Dose 300 MG; Start 12/17/18 at 21:00 Guaifenesin/ Dextromethorphan (Robitussin Dm Liquid Cup) 5 ml Q4H PRN PO cough Last administered on 12/24/18 21:16; Admin Dose 5 ML; Start 12/17/18 at 18:00 Linagliptin (Tradjenta) 5 mg DAILY GTB Last administered on 01/03/19 08:16; Admin Dose 5 MG; Start 12/17/18 at 09:00 Folic Acid (Folic Acid) 1 mg DAILY GTB Last administered on 01/03/19 08:17; Admin Dose 1 MG; Start 12/18/18 at 09:00 Metoclopramide HCl (Reglan) 5 mg Q8 PRN IV VOMITTING; Start 12/20/18 at 10:00 IV Flush (NS 10 ml) 10 ml AFTER DIALYSIS CATHETER ; Start 12/22/18 at 10:00 Voriconazole (Vfend) 200 mg BID PO Last administered on 01/03/19 08:16; Admin Dose 200 MG; Start 12/22/18 at 11:00 Magnesium Hydroxide (Milk Of Mag) 30 ml DAILY PRN PO CONSTIPATION; Start 12/22/18 at 17:00 Sodium Chloride (NS) -To prime the dialy... DIRECTED FOR HD PRN IV HD; Start 12/23/18 at 16:00 Amlodipine Besylate (Norvasc) 5 mg DAILY GTB Last administered on 01/02/19 09:47; Admin Dose 5 MG; Start 12/25/18 at 15:30 Polyethylene Glycol (Miralax) 17 gm DAILY GTB Last administered on 01/03/19 08:17; Admin Dose 17 GM; Start 12/27/18 at 09:00 Insulin Glargine (Lantus) 4 units DAILY@2000 SC Last administered on 01/02/19 21:38; Admin Dose 4 UNITS; Start 12/28/18 at 20:00 Miscellaneous Information 1 ea NOTE XX ; Start 12/28/18 at 19:00 Glucose (Glutose) 15 gm Q15M PRN PO DECREASED GLUCOSE; Start 12/28/18 at 19:00 Glucose (Glutose) 22.5 gm Q15M PRN PO DECREASED GLUCOSE; Start 12/28/18 at 19:00 Dextrose (D50w Syringe) 25 ml Q15M PRN IV DECREASED GLUCOSE; Start 12/28/18 at 19:00 Dextrose (D50w Syringe) 50 ml Q15M PRN IV DECREASED GLUCOSE; Start 12/28/18 at 19:00 Glucagon (Glucagen) 1 mg Q15M PRN IM DECREASED GLUCOSE; Start 12/28/18 at 19:00 Glucose (Glutose) 15 gm Q15M PRN BUCCAL DECREASED GLUCOSE; Start 12/28/18 at 19:00 Sevelamer Carbonate (Renvela) 1.6 gm TID NGT Last administered on 01/03/19 08:17; Admin Dose 1.6 GM; Start 12/31/18 at 13:00 Meropenem/Sodium Chloride 50 ml @ 100 mls/hr Q24H IVPB Last administered on 12/31/18 20:05; Admin Dose 100 MLS/HR; Start 12/31/18 at 20:00 Metoclopramide HCl (Reglan) 5 mg Q8 PO Last administered on 01/03/19at 06:30; Admin Dose 5 MG; Start 01/02/19 at 07:00 Olanzapine (Zyprexa) 2.5 mg DAILY PO Last administered on 01/03/19 08:17; Admin Dose 2.5 MG; Start 01/03/19 at 09:00 TONY VENCES Jan 03, 2019 09:32
--- NOTE | 2019-01-03 13:19 | CONS ---
Assessment/Plan Assessment/Plan Hospital Course (Demo Recall) 83 y/o with Hospital Course (Demo Recall) 1. End-stage renal disease on hemodialysis. 2. Gastrointestinal bleed with melena.resolved 3. Hypertension. 4. Diabetes. 5. Right hand swelling, s/p I and D on 11/17/18 6. History of falls. 7. Vascular dementia. 8. History of sepsis with VRE. 9. Dysphagia, status post G-tube. 10. History of hip fracture. 11. Thrombocytopenia. 12. Atherosclerotic heart disease. 13. Pneumonia left side 14. Anemia 15 YEAST BACTERIMIA LIKELY DUE TO UTI 16 Paroxsymal AFib now in sinus Assessment/Plan (Daily) - Hd MWF, Hd tODAY - cw with permacath -avoid nephrotoxic drugs -HD MWFr -c/w epogen - Aspiration precautions DC planning Consultation Date/Type/Reason Admit Date/Time Nov 16, 2018 at 05:51 Initial Consult Date 11/16/18 Requesting Provider: DYLON WALLS MD Date/Time of Note DATE: 01/03/19 TIME: 13:19 24 HR Interval Summary Free Text/Dictation hd in progress Exam/Review of Systems Exam Vitals Vital Signs Date Temp Pulse Resp B/P (MAP) Pulse Ox O2 O2 Flow FiO2 Time Delivery Rate 01/03/19 71 12:55 01/03/19 16 114/52 99 Room Air 11:10 (72) 01/03/19 97.8 08:40 01/01/19 21 15:47 Intake and Output 01/02/19 01/02/19 01/03/19 1515:00 23:00 07:00 IntakeIntake Total 510 ml BalanceBalance 510 ml Exam left permactah pt awake,alert CTAB Results Result Diagram: 01/02/1952101/02/19 05 Results 24hrs Laboratory Tests Test 01/02/19 21:35 01/03/19 08:00 Bedside Glucose 173 151 Medications Medication Current Medications IV Flush (NS 3 ml) 3 ml PER PROTOCOL IV ; Start 11/16/18 at 09:00 Ondansetron HCl (Zofran Inj) 4 mg Q6H PRN IV NAUSEA AND/OR VOMITING Last administered on 12/31/18at 11:45; Admin Dose 4 MG; Start 11/16/18 at 09:00 Hydralazine HCl (Apresoline) 10 mg Q4H PRN IV ELEVATED BLOOD PRESSURE Last administered on 12/22/18 19:40; Admin Dose 10 MG; Start 11/17/18 at 10:30 Acetaminophen/ Hydrocodone Bitart ([place] (5/325)) 1 tab Q3H PRN PO MODERATE PAIN LEVEL 4-6 Last administered on 12/26/18 22:10; Admin Dose 1 TAB; Start 11/17/18 at 14:30 Albumin Human 50 ml @ 100 mls/hr WITH DIALYSIS PRN IV SBP<90 Last administered on 12/31/18 15:54; Admin Dose 100 MLS/HR; Start 11/18/18 at 14:30 Morphine Sulfate (morphine) 6 mg Q4H PRN PO SEVERE PAIN LEVEL 7-10 Last ad ministered on 12/30/18 09:15; Admin Dose 6 MG; Start 11/18/18 at 23:00 Docusate Sodium (Colace Liquid Cup) 100 mg DAILY GTB Last administered on 01/03/19 08:16; Admin Dose 100 MG; Start 11/19/18 at 09:30 Multivit/Ca Carb/ B Cmplx/FA/Prenat (Kianna-Roque) 1 tab DAILY GTB Last administered on 01/03/19 08:16; Admin Dose 1 TAB; Start 11/24/18 at 09:00 Lansoprazole (Prevacid) 30 mg DAILY GTB Last administered on 01/03/19 08:16; Admin Dose 30 MG; Start 11/26/18 at 09:00 Acetaminophen (Tylenol Supp) 650 mg Q4H PRN [place] MILD PAIN(1-3) OR TEMP>38C Last administered on 11/26/18 08:32; Admin Dose 650 MG; Start 11/26/18 at 08:30 Epoetin Michael (Epogen (Esrd)) 4,000 units MoWeFr@17 SC Last administered on 12/31/18 17:36; Admin Dose 4,000 UNITS; Start 12/06/18 at 17:00 Hydralazine HCl (Apresoline) 50 mg Q8 PO Last administered on 01/03/19 06:30; Admin Dose 50 MG; Start 12/07/18 at 22:00 Metoprolol Tartrate (Lopressor) 100 mg BID GTB Last administered on 01/02/19 21:37; Admin Dose 100 MG; Start 12/13/18 at 21:00 Aspirin (Halfprin) 81 mg DAILY PO Last administered on 01/03/19 08:17; Admin D ose 81 MG; Start 12/13/18 at 19:30 Senna (Senokot) 1 tab BID PO Last administered on 01/03/19 08:17; Admin Dose 1 TAB; Start 12/17/18 at 21:00 Acetaminophen (Tylenol Tab) 650 mg Q6H PRN PO PAIN LEVEL 1-3 OR FEVER Last administered on 12/21/18 05:01; Admin Dose 650 MG; Start 12/17/18 at 15:00 Albuterol/ Ipratropium (Duoneb) 3 ml Q6H RESP THERAPY PRN HHN sob Last administered on 12/19/18 03:51; Admin Dose 3 ML; Start 12/17/18 at 09:00 Docusate Sodium (Colace) 100 mg Q12H PRN PO CONSTIPATION Last administered on 12/21/18 05:01; Admin Dose 100 MG; Start 12/17/18 at 21:00 Ferrous Sulfate (Feosol Liquid Cup) 300 mg BID GTB Last administered on 01/03/19 08:16; Admin Dose 300 MG; Start 12/17/18 at 21:00 Guaifenesin/ Dextromethorphan (Robitussin Dm Liquid Cup) 5 ml Q4H PRN PO cough Last administered on 12/24/18 21:16; Admin Dose 5 ML; Start 12/17/18 at 18:00 Linagliptin (Tradjenta) 5 mg DAILY GTB Last administered on 01/03/19 08:16; Admin Dose 5 MG; Start 12/17/18 at 09:00 Folic Acid (Folic Acid) 1 mg DAILY GTB Last administered on 01/03/19 08:17; Admin Dose 1 MG; Start 12/18/18 at 09:00 Metoclopramide HCl (Reglan) 5 mg Q8 PRN IV VOMITTING; Start 12/20/18 at 10:00 IV Flush (NS 10 ml) 10 ml AFTER DIALYSIS CATHETER ; Start 12/22/18 at 10:00 Voriconazole (Vfend) 200 mg BID PO Last administered on 2/25/19at 08:16; Admin Dose 200 MG; Start 12/22/18 at 11:00 Magnesium Hydroxide (Milk Of Mag) 30 ml DAILY PRN PO CONSTIPATION; Start 12/22/18 at 17:00 Sodium Chloride (NS) -To prime the dialy... DIRECTED FOR HD PRN IV HD; Start 12/23/18 at 16:00 Amlodipine Besylate (Norvasc) 5 mg DAILY GTB Last administered on 01/02/19at 09:47; Admin Dose 5 MG; Start 12/25/18 at 15:30 Polyethylene Glycol (Miralax) 17 gm DAILY GTB Last administered on 01/03/19at 08:17; Admin Dose 17 GM; Start 12/27/18 at 09:00 Insulin Glargine (Lantus) 4 units DAILY@2000 SC Last administered on 01/02/19at 21:38; Admin Dose 4 UNITS; Start 12/28/18 at 20:00 Miscellaneous Information 1 ea NOTE XX ; Start 12/28/18 at 19:00 Glucose (Glutose) 15 gm Q15M PRN PO DECREASED GLUCOSE; Start 12/28/18 at 19:00 Glucose (Glutose) 22.5 gm Q15M PRN PO DECREASED GLUCOSE; Start 12/28/18 at 19:00 Dextrose (D50w Syringe) 25 ml Q15M PRN IV DECREASED GLUCOSE; Start 12/28/18 at 19:00 Dextrose (D50w Syringe) 50 ml Q15M PRN IV DECREASED GLUCOSE; Start 12/28/18 at 19:00 Glucagon (Glucagen) 1 mg Q15M PRN IM DECREASED GLUCOSE; Start 12/28/18 at 19:00 Glucose (Glutose) 15 gm Q15M PRN BUCCAL DECREASED GLUCOSE; Start 12/28/18 at 19:00 Sevelamer Carbonate (Renvela) 1.6 gm TID NGT Last administered on 01/03/19at 12:30; Admin Dose 1.6 GM; Start 12/31/18 at 13:00 Meropenem/Sodium Chloride 50 ml @ 100 mls/hr Q24H IVPB Last administered on 12/31/18at 20:05; Admin Dose 100 MLS/HR; Start 12/31/18 at 20:00 Metoclopramide HCl (Reglan) 5 mg Q8 PO Last administered on 01/03/19at 06:30; Admin Dose 5 MG; Start 01/02/19 at 07:00 Olanzapine (Zyprexa) 2.5 mg DAILY PO Last administered on 01/03/19at 08:17; Admin Dose 2.5 MG; Start 01/03/19 at 09:00 JOSE RAUL ANDREWS MD Jan 03, 2019 13:19
--- NOTE | 2019-01-03 16:00 | CONS ---
Assessment/Plan Assessment/Plan Hospital Course (Demo Recall) Patient is status post hemodialysis this morning, she is awake, looks comfortable, no fevers overnight WBC yesterday 10.4, no labs today Antimicrobials: Meropenem, day #4 Blood culture repeated on November 29 grew Dominique glabrata blood cultures since December 01 that were drawn from permacath negative blood culture on December 03 negative, urine culture growing C glabrata Indwelling: Left chest permacath, PEG Physical examination: Chronically ill-appearing elderly woman who is awake, confused, in no distress. Head atraumatic normocephalic. Neck is supple. Chest rise symmetrical breath sounds diminished bases. Heart: S1-S2. Abdomen soft bowel sounds present, right upper extremity Armani wrapped Assessment: 1. Recurrent aspiration event, patient is on meropenem 2. Status post UTI==> T glabrata 3. S/p Fungemia secondary to urinary tract infection 4. Right hand hematoma, status post I&D 11/17/18 5. Status post VRE bacteremia/new Pcath 6. End-stage renal disease, hemodialysis dependent 7. Failure to thrive 8. Diabetes 9. Anemia 10. P Afib Plan: Stable, continue present care, aspiration precautions Consultation Date/Type/Reason Admit Date/Time Nov 16, 2018 at 05:51 Initial Consult Date 11/16/18 Type of Consult id Requesting Provider: DYLON WALLS MD Date/Time of Note DATE: 01/03/19 TIME: 15:58 Exam/Review of Systems Exam Vitals Vital Signs Date Temp Pulse Resp B/P (MAP) Pulse Ox O2 O2 Flow FiO2 Time Delivery Rate 01/03/19 98.7 68 17 160/64 99 15:01 (96) 01/03/19 Room Air 11:10 01/01/19 21 15:47 Intake and Output 01/02/19 01/02/19 01/03/19 1515:00 23:00 07:00 IntakeIntake Total 510 ml BalanceBalance 510 ml Results Result Diagram: 01/02/1952101/02/19521 Results 24hrs Laboratory Tests Test 01/02/19 21:35 01/03/19 08:00 Bedside Glucose 173 151 Medications Medication Current Medications IV Flush (NS 3 ml) 3 ml PER PROTOCOL IV ; Start 11/16/18 at 09:00 Ondansetron HCl (Zofran Inj) 4 mg Q6H PRN IV NAUSEA AND/OR VOMITING Last administered on 12/31/18 11:45; Admin Dose 4 MG; Start 11/16/18 at 09:00 Hydralazine HCl (Apresoline) 10 mg Q4H PRN IV ELEVATED BLOOD PRESSURE Last administered on 12/22/18 19:40; Admin Dose 10 MG; Start 11/17/18 at 10:30 Acetaminophen/ Hydrocodone Bitart (Agency (5/325)) 1 tab Q3H PRN PO MODERATE PAIN LEVEL 4-6 Last administered on 12/26/18 22:10; Admin Dose 1 TAB; Start 11/17/18 at 14:30 Albumin Human 50 ml @ 100 mls/hr WITH DIALYSIS PRN IV SBP<90 Last administered on 12/31/18 15:54; Admin Dose 100 MLS/HR; Start 11/18/18 at 14:30 Morphine Sulfate (morphine) 6 mg Q4H PRN PO SEVERE PAIN LEVEL 7-10 Last administered on 12/30/18 09:15; Admin Dose 6 MG; Start 11/18/18 at 23:00 Docusate Sodium (Colace Liquid Cup) 100 mg DAILY GTB Last administered on 01/03/19 08:16; Admin Dose 100 MG; Start 11/19/18 at 09:30 Multivit/Ca Carb/ B Cmplx/FA/Prenat (Kianna-Roque) 1 tab DAILY GTB Last administered on 01/03/19 08:16; Admin Dose 1 TAB; Start 11/24/18 at 09:00 Lansoprazole (Prevacid) 30 mg DAILY GTB Last administered on 01/03/19 08:16; Admin Dose 30 MG; Start 11/26/18 at 09:00 Acetaminophen (Tylenol Supp) 650 mg Q4H PRN [place] MILD PAIN(1-3) OR TEMP>38C Last administered on 11/26/18 08:32; Admin Dose 650 MG; Start 11/26/18 at 08:30 Epoetin Michael (Epogen (Esrd)) 4,000 units MoWeFr@17 SC Last administered on 12/31/18 17:36; Admin Dose 4,000 UNITS; Start 12/06/18 at 17:00 Hydralazine HCl (Apresoline) 50 mg Q8 PO Last administered on 01/03/19 15:10; Admin Dose 50 MG; Start 12/07/18 at 22:00 Metoprolol Tartrate (Lopressor) 100 mg BID GTB Last administered on 01/03/19 15:10; Admin Dose 100 MG; Start 12/13/18 at 21:00 Aspirin (Halfprin) 81 mg DAILY PO Last administered on 01/03/19 08:17; Admin Dose 81 MG; Start 12/13/18 at 19:30 Senna (Senokot) 1 tab BID PO Last administered on 01/03/19 08:17; Admin Dose 1 TAB; Start 12/17/18 at 21:00 Acetaminophen (Tylenol Tab) 650 mg Q6H PRN PO PAIN LEVEL 1-3 OR FEVER Last administered on 12/21/18 05:01; Admin Dose 650 MG; Start 12/17/18 at 15:00 Albuterol/ Ipratropium (Duoneb) 3 ml Q6H RESP THERAPY PRN HHN sob Last administered on 12/19/18 03:51; Admin Dose 3 ML; Start 12/17/18 at 09:00 Docusate Sodium (Colace) 100 mg Q12H PRN PO CONSTIPATION Last administered on 12/21/18 05:01; Admin Dose 100 MG; Start 12/17/18 at 21:00 Ferrous Sulfate (Feosol Liquid Cup) 300 mg BID GTB Last administered on 01/03/19 08:16; Admin Dose 300 MG; Start 12/17/18 at 21:00 Guaifenesin/ Dextromethorphan (Robitussin Dm Liquid Cup) 5 ml Q4H PRN PO cough Last administered on 12/24/18 21:16; Admin Dose 5 ML; Start 12/17/18 at 18:00 Linagliptin (Tradjenta) 5 mg DAILY GTB Last administered on 01/03/19 08:16; Admin Dose 5 MG; Start 12/17/18 at 09:00 Folic Acid (Folic Acid) 1 mg DAILY GTB Last administered on 01/03/19 08:17; Admin Dose 1 MG; Start 12/18/18 at 09:00 Metoclopramide HCl (Reglan) 5 mg Q8 PRN IV VOMITTING; Start 12/20/18 at 10:00 IV Flush (NS 10 ml) 10 ml AFTER DIALYSIS CATHETER ; Start 12/22/18 at 10:00 Voriconazole (Vfend) 200 mg BID PO Last administered on 01/03/19 08:16; Admin Dose 200 MG; Start 12/22/18 at 11:00 Magnesium Hydroxide (Milk Of Mag) 30 ml DAILY PRN PO CONSTIPATION; Start 12/22/18 at 17:00 Sodium Chloride (NS) -To prime the dialy... DIRECTED FOR HD PRN IV HD; Start 12/23/18 at 16:00 Amlodipine Besylate (Norvasc) 5 mg DAILY GTB Last administered on 01/02/19 09:47; Admin Dose 5 MG; Start 12/25/18 at 15:30 Polyethylene Glycol (Miralax) 17 gm DAILY GTB Last administered on 01/03/19 08:17; Admin Dose 17 GM; Start 12/27/18 at 09:00 Insulin Glargine (Lantus) 4 units DAILY@2000 SC Last administered on 01/02/19at 21:38; Admin Dose 4 UNITS; Start 12/28/18 at 20:00 Miscellaneous Information 1 ea NOTE XX ; Start 12/28/18 at 19:00 Glucose (Glutose) 15 gm Q15M PRN PO DECREASED GLUCOSE; Start 12/28/18 at 19:00 Glucose (Glutose) 22.5 gm Q15M PRN PO DECREASED GLUCOSE; Start 12/28/18 at 19:00 Dextrose (D50w Syringe) 25 ml Q15M PRN IV DECREASED GLUCOSE; Start 12/28/18 at 19:00 Dextrose (D50w Syringe) 50 ml Q15M PRN IV DECREASED GLUCOSE; Start 12/28/18 at 19:00 Glucagon (Glucagen) 1 mg Q15M PRN IM DECREASED GLUCOSE; Start 12/28/18 at 19:00 Glucose (Glutose) 15 gm Q15M PRN BUCCAL DECREASED GLUCOSE; Start 12/28/18 at 19:00 Sevelamer Carbonate (Renvela) 1.6 gm TID NGT Last administered on 01/03/19at 12:30; Admin Dose 1.6 GM; Start 12/31/18 at 13:00 Meropenem/Sodium Chloride 50 ml @ 100 mls/hr Q24H IVPB Last administered on 12/31/18at 20:05; Admin Dose 100 MLS/HR; Start 12/31/18 at 20:00 Metoclopramide HCl (Reglan) 5 mg Q8 PO Last administered on 01/03/19at 15:10; Admin Dose 5 MG; Start 01/02/19 at 07:00 Olanzapine (Zyprexa) 2.5 mg DAILY PO Last administered on 01/03/19at 08:17; Admin Dose 2.5 MG; Start 01/03/19 at 09:00 PHYLICIA HOLCOMB NP Jan 03, 2019 16:00
--- NOTE | 2019-01-03 17:33 | CONS ---
Consult Date/Type/Reason Admit Date/Time Nov 16, 2018 at 05:51 Initial Consult Date 11/16/18 Type of Consultation: cv Requesting Provider: DYLON WALLS MD Date/Time of Note DATE: 01/03/19 TIME: 17:32 Subjective Cardiology follow up note Sl DW/ Staff and telemetry was reviewed. Patient is off tele now pt continues to be confused but calm and cooperative now no report of any chest pain or pressure or palpitations but pt is a very poor historian Events noted. 12/13/18: Patient went into atrial fibrillation rapid ventricular response during hemodialysis . Patient has been transferred to telemetry and converted back to sinus rhythm remains in sinus rhythm s/p I/D 11/17 EGD 11.18.18 O: General: Elderly frail female in no acute distress HEENT: NC/AT. Eyes are closed NECK: NO JVD. no stridor. CV: RRR. systolic murmur; no gallop or rubs. PULM: no wheezing or rhonchi. GI: SOFT, NT, ND, no rebound or guarding neuro: AWAKE and alert Psych: calm now rectal: deferred Objective Vitals Vital Signs Date Temp Pulse Resp B/P (MAP) Pulse Ox O2 O2 Flow FiO2 Time Delivery Rate 01/03/19 98.7 68 17 160/64 99 15:01 (96) 01/03/19 Room Air 14:30 01/01/19 21 15:47 Intake and Output 01/02/19 01/02/19 01/03/19 1515:00 23:00 07:00 IntakeIntake Total 510 ml BalanceBalance 510 ml Results/Medications Result Diagram: 01/02/1952101/02/19521 Results 24 hrs Laboratory Tests Test 01/02/19 21:35 01/03/19 08:00 Bedside Glucose 173 151 Home Meds Reported Medications Sennosides* (Senna Lax*) 8.6 Mg Tablet, 1 TAB PO BID, TAB 11/16/18 Sevelamer Carbonate* (Renvela*) 0.8 Gm Powd.pack, 0.8 GM PO WITH MEALS, PACKET 11/16/18 Lansoprazole* (Lansoprazole*) 30 Mg Capsule.dr, 30 MG PO QAM, CAP 11/16/18 Hydralazine Hcl* (Hydralazine Hcl*) 25 Mg Tab, 25 MG PO Q8, #90 TAB 11/16/18 Ferrous Sulfate* (Ferrous Sulfate*) 325 Mg Tabec, 325 MG PO BID for anemia, TAB 11/16/18 Valproate Sodium (Valproic Acid) 250 Mg/5 Ml Solution, 250 MG PO Q8, ML 11/16/18 Insulin Aspart* (Novolog Insulin Pen*) 100 Unit/Ml Soln, 0 SC .SLIDING SCALE AC, EA IF BS 160-200=2 UNITS,201-250=4 UNITS,251-300=8 UNITS,301-350=12 UNITS;351-400=16 UNITS THEN CALL MD. 10/16/18 Ondansetron Hcl* (Zofran*) 4 Mg Tab, 4 MG GTB Q4H PRN for NAUSEA AND OR VOMITIN G, TAB 10/16/18 Linagliptin (TRADJENTA) 5 Mg Tablet, 5 MG GTB DAILY, TAB 10/16/18 Quetiapine Fumarate* (Seroquel*) 25 Mg Tablet, 25 MG GTB BID, #60 TAB 10/16/18 [Nephro-Roque] No Conflict Check, 0.8 MG GTB DAILY 10/16/18 Polyethylene Glycol* (Miralax*) 17 Gm Powd.pack, 17 GM GTB Q24H, #30 PACKET 10/16/18 Metoprolol Tartrate* (Lopressor*) 50 Mg Tab, 50 MG GTB DAILY, #60 TAB Q MON,WED,FRI,SUN,HOLD FOR SBP<110 OR PA<60 10/16/18 Metoprolol Tartrate* (Lopressor*) 50 Mg Tab, 50 MG GTB BID, #60 TAB QTUE,ANDREW,SAT,HOLD FOR SBP<110 OR PA<60 10/16/18 Linaclotide (LINZESS) 145 Mcg Capsule, 145 MCG GTB DAILY, #30 CAP 10/16/18 Ipratropium-Albuterol (Ipratropium-Albuterol) 0.5-3 Mg/3 Ml Ampul.neb, 3 ML INHALATION Q6, #30 VIAL FOR 14 DAYS,STOP DATE 10/17/18 10/16/18 Hydralazine Hcl* (Hydralazine Hcl*) 25 Mg Tab, 25 MG GTB DAILY, #60 TAB Q TUE,ANDREW,SAT,HOLD IF SBP<110 OR PA<60 10/16/18 Folic Acid* (Folic Acid*) 1 Mg Tablet, 1 MG GTB DAILY, TAB 10/16/18 Docusate Sodium* (Colace*) 100 Mg Capsule, 100 MG GTB DAILY, #30 CAP 10/16/18 Lorazepam* (Lorazepam*) 1 Mg Tablet, 1 MG GTB HS PRN for ANXIETY, #30 TAB Q TUE,ANDREW,SAT 10/16/18 Amlodipine Besylate* (Norvasc*) 5 Mg Tablet, 5 MG GTB BID, TAB TAKE Q TUE,ANDREW,SAT FOR HTN, HOLD FOR SBP<110 OR PA<60 10/16/18 Acetaminophen* (Acetaminophen*) 650 Mg Tablet, 650 MG GTB Q6H PRN for PAIN LEVEL 1-08/18, #30 TAB 10/16/18 Medications Current Medications IV Flush (NS 3 ml) 3 ml PER PROTOCOL IV ; Start 11/16/18 at 09:00 Ondansetron HCl (Zofran Inj) 4 mg Q6H PRN IV NAUSEA AND/OR VOMITING Last administered on 12/31/18 11:45; Admin Dose 4 MG; Start 11/16/18 at 09:00 Hydralazine HCl (Apresoline) 10 mg Q4H PRN IV ELEVATED BLOOD PRESSURE Last administered on 12/22/18 19:40; Admin Dose 10 MG; Start 11/17/18 at 10:30 Acetaminophen/ Hydrocodone Bitart ([place] (5/325)) 1 tab Q3H PRN PO MODERATE PAIN LEVEL 4-6 Last administered on 12/26/18 22:10; Admin Dose 1 TAB; Start 11/17/18 at 14:30 Albumin Human 50 ml @ 100 mls/hr WITH DIALYSIS PRN IV SBP<90 Last administered on 12/31/18 15:54; Admin Dose 100 MLS/HR; Start 11/18/18 at 14:30 Morphine Sulfate (morphine) 6 mg Q4H PRN PO SEVERE PAIN LEVEL 7-10 Last administered on 12/30/18 09:15; Admin Dose 6 MG; Start 11/18/18 at 23:00 Docusate Sodium (Colace Liquid Cup) 100 mg DAILY GTB Last administered on 01/03/19 08:16; Admin Dose 100 MG; Start 11/19/18 at 09:30 Multivit/Ca Carb/ B Cmplx/FA/Prenat (Kianna-Roque) 1 tab DAILY GTB Last administered on 01/03/19 08:16; Admin Dose 1 TAB; Start 11/24/18 at 09:00 Lansoprazole (Prevacid) 30 mg DAILY GTB Last administered on 01/03/19 08:16; Admin Dose 30 MG; Start 11/26/18 at 09:00 Acetaminophen (Tylenol Supp) 650 mg Q4H PRN [place] MILD PAIN(1-3) OR TEMP>38C Last administered on 11/26/18 08:32; Admin Dose 650 MG; Start 11/26/18 at 08:30 Epoetin Michael (Epogen (Esrd)) 4,000 units MoWeFr@17 SC Last administered on 12/31/18 17:36; Admin Dose 4,000 UNITS; Start 12/06/18 at 17:00 Hydralazine HCl (Apresoline) 50 mg Q8 PO Last administered on 01/03/19 15:10; Admin Dose 50 MG; Start 12/07/18 at 22:00 Metoprolol Tartrate (Lopressor) 100 mg BID GTB Last administered on 01/03/19 15:10; Admin Dose 100 MG; Start 12/13/18 at 21:00 Aspirin (Halfprin) 81 mg DAILY PO Last administered on 01/03/19 08:17; Admin Dose 81 MG; Start 12/13/18 at 19:30 Senna (Senokot) 1 tab BID PO Last administered on 01/03/19 08:17; Admin Dose 1 TAB; Start 12/17/18 at 21:00 Acetaminophen (Tylenol Tab) 650 mg Q6H PRN PO PAIN LEVEL 1-3 OR FEVER Last administered on 12/21/18 05:01; Admin Dose 650 MG; Start 12/17/18 at 15:00 Albuterol/ Ipratropium (Duoneb) 3 ml Q6H RESP THERAPY PRN HHN sob Last administered on 12/19/18 03:51; Admin Dose 3 ML; Start 12/17/18 at 09:00 Docusate Sodium (Colace) 100 mg Q12H PRN PO CONSTIPATION Last administered on 12/21/18 05:01; Admin Dose 100 MG; Start 12/17/18 at 21:00 Ferrous Sulfate (Feosol Liquid Cup) 300 mg BID GTB Last administered on 01/03/19 08:16; Admin Dose 300 MG; Start 12/17/18 at 21:00 Guaifenesin/ Dextromethorphan (Robitussin Dm Liquid Cup) 5 ml Q4H PRN PO cough Last administered on 12/24/18 21:16; Admin Dose 5 ML; Start 12/17/18 at 18:00 Linagliptin (Tradjenta) 5 mg DAILY GTB Last administered on 01/03/19 08:16; Admin Dose 5 MG; Start 12/17/18 at 09:00 Folic Acid (Folic Acid) 1 mg DAILY GTB Last administered on 01/03/19 08:17; Admin Dose 1 MG; Start 12/18/18 at 09:00 Metoclopramide HCl (Reglan) 5 mg Q8 PRN IV VOMITTING; Start 12/20/18 at 10:00 IV Flush (NS 10 ml) 10 ml AFTER DIALYSIS CATHETER ; Start 12/22/18 at 10:00 Voriconazole (Vfend) 200 mg BID PO Last administered on 01/03/19 08:16; Admin Dose 200 MG; Start 12/22/18 at 11:00 Magnesium Hydroxide (Milk Of Mag) 30 ml DAILY PRN PO CONSTIPATION; Start 12/22/18 at 17:00 Sodium Chloride (NS) -To prime the dialy... DIRECTED FOR HD PRN IV HD; Start 12/23/18 at 16:00 Amlodipine Besylate (Norvasc) 5 mg DAILY GTB Last administered on 01/02/19 09:47; Admin Dose 5 MG; Start 12/25/18 at 15:30 Polyethylene Glycol (Miralax) 17 gm DAILY GTB Last administered on 01/03/19 08:17; Admin Dose 17 GM; Start 12/27/18 at 09:00 Insulin Glargine (Lantus) 4 units DAILY@2000 SC Last administered on 01/02/19 21:38; Admin Dose 4 UNITS; Start 12/28/18 at 20:00 Miscellaneous Information 1 ea NOTE XX ; Start 12/28/18 at 19:00 Glucose (Glutose) 15 gm Q15M PRN PO DECREASED GLUCOSE; Start 12/28/18 at 19:00 Glucose (Glutose) 22.5 gm Q15M PRN PO DECREASED GLUCOSE; Start 12/28/18 at 19:00 Dextrose (D50w Syringe) 25 ml Q15M PRN IV DECREASED GLUCOSE; Start 12/28/18 at 19:00 Dextrose (D50w Syringe) 50 ml Q15M PRN IV DECREASED GLUCOSE; Start 12/28/18 at 19:00 Glucagon (Glucagen) 1 mg Q15M PRN IM DECREASED GLUCOSE; Start 12/28/18 at 19:00 Glucose (Glutose) 15 gm Q15M PRN BUCCAL DECREASED GLUCOSE; Start 12/28/18 at 19:00 Sevelamer Carbonate (Renvela) 1.6 gm TID NGT Last administered on 01/03/19at 12:30; Admin Dose 1.6 GM; Start 12/31/18 at 13:00 Meropenem/Sodium Chloride 50 ml @ 100 mls/hr Q24H IVPB Last administered on 12/31/18at 20:05; Admin Dose 100 MLS/HR; Start 12/31/18 at 20:00 Metoclopramide HCl (Reglan) 5 mg Q8 PO Last administered on 01/03/19 15:10; Admin Dose 5 MG; Start 01/02/19 at 07:00 Olanzapine (Zyprexa) 2.5 mg DAILY PO Last administered on 01/03/19 08:17; Admin Dose 2.5 MG; Start 01/03/19 at 09:00 Assessment/Plan Hospital Course (Demo Recall) P-atrial fibrillation rapid ventricular response: Currently back in sinus rhythm fungemia /fungal urinary tract infection Status post right hand hematoma: Status post I&D Renal failure on dialysis Hypertension Dementia Anemia Possible GI bleed: Status post EGD AI Recommendations: pt is not on full anticoagulation due to the fall risk as well as anemia cont beta-farrah Dialysis as per renal team Neuro workup and treatment as per internal medicine Antibiotic as per ID and internal medicine asa for now and monitor Thank you for his referral. We will continue to follow along with you as needed basis CHRISTEN ESCOBEDO MD [facility] CHRISTEN ESCOBEDO MD Jan 03, 2019 17:33
--- NOTE | 2019-01-03 17:49 | PN ---
DATE: 01/03/2019 SUBJECTIVE: The patient was seen, currently receiving dialysis, alert, back to baseline neurological ly as patient is unresponsive. PHYSICAL EXAMINATION: VITAL SIGNS: Temperature is 97.8, pulse 69, respirations 16, blood pressure 114/52, saturation 99% o n room air. GENERAL: The patient is pale. CARDIOVASCULAR: S1, S2, regular rate. LUNGS: Clear. ABDOMEN: Soft. G-tube in place. EXTREMITIES: No clubbing, cyanosis or edema. LABORATORY DATA: White count was normal yesterday at 10.4, hemoglobin of 7.3, hematocrit 24, platele t count 206. Chemistry: Sodium 134, potassium 4.4, chloride 97, bicarbonate 28, BUN 73, creatinine 2.91. Last glucose of 151 and 173. Urine culture on 12/20/2018 shows Dominique glabrata. MEDICATIONS: All reviewed. They include: 1. Zyprexa 2.5 daily. 2. Reglan 5 mg q.8 hours orally. 3. Merrem q.24 hours. 4. Renvela. 5. Lantus. 6. MiraLax. 7. Norvasc. 8. Milk of Magnesia. 9. Vfend. 10. Reglan. 11. Folic acid. 12. Senna. 13. Colace. 14. Ferrous sulfate. 15. Robitussin. 16. Tylenol. 17. DuoNeb. 18. Tradjenta. 19. Lopressor. 20. Aspirin. 21. Hydralazine. 22. Epogen. 23. Prevacid. 24. Kianna-Roque. 25. Morphine. 26. Vidalia. 27. Zofran. ASSESSMENT AND PLAN: This is an 83-year-old [place] female with end-stage renal disease, advanced d ementia, atherosclerotic cardiovascular disease, status post treatment for bacteremia, fungemia, urin familia tract infection, right hand hematoma status post incision and drainage, treated recently for aspi ration pneumonia, now again on antibiotics for possible recurrent aspiration as patient had episodes of vomiting, possibly due to high residual feeding. 1. Respiratory. Continue Merrem for aspiration pneumonia. White count is normal, afebrile, clinica lly better. 2. Dysphagia. Continue G-tube feeding at 30 mL an hour. Continue Reglan. 3. Cardiovascular. Vitals are stable. 4. Diabetes mellitus, on Levemir and Tradjenta. Glucose levels are in the 100s. 5. End-stage renal disease. This patient has been dialyzed every Thursday, Thursday, Thursday currentl y on hemodialysis. 6. Anemia, chronic. Monitor hemoglobin and hematocrit. Continue Epogen. Transfuse p.r.n. 7. Urinary tract infection, on Vfend. 8. Mood disorder, on low dose Zyprexa 2.5 daily. Continue close monitoring. manager communication is assisting with placement. We will follow. Dictated By: DYLON HULL/MADAN Conf#: [id number] DID#: [id number] CC: CHRISS WELCH MD;*EndCC*
[2019-01-03] MEDS: EPOETIN 4000 UNITS/1 ML INJ (ESRD) SC SCH (18:23)
[2019-01-03] MEDS: INSULIN GLARGINE [LANTus] (100 UNITS/ML) SYG SC SCH (20:42)
[2019-01-03] MEDS: MEROPENEM 500MG/50 ML (PMX) 50 ML IVPB SCH (20:44)
[2019-01-04 02:00] VITALS: BP 107/51; PULSE 70; RESP 18
[2019-01-04] MEDS: METOCLOPRAMIDE 5 MG TAB PO SCH ×3 (05:47→21:00)
[2019-01-04 08:04] VITALS: BP 114/56; PULSE 58; RESP 18
[2019-01-04 08:29] VITALS: PULSE 64
[2019-01-04] MEDS: FOLIC ACID 1 MG TAB GTB SCH (08:38)
[2019-01-04] MEDS: LANSOPRAZOLE 30 MG CAP GTB SCH (08:38)
[2019-01-04] MEDS: POLYETHYLENE GLYCOL 17 GM PACKET GTB SCH (08:38)
[2019-01-04] MEDS: LINAGLIPTIN 5 MG TABLET GTB SCH (08:38)
[2019-01-04] MEDS: DOCUSATE SODIUM 10 MG/ML (10ML CUP) GTB SCH (08:38)
[2019-01-04] MEDS: FERROUS SULFATE 60 MG/ML 5ML CUP GTB SCH ×2 (08:38→20:34)
[2019-01-04] MEDS: OLANZAPINE 2.5 MG TAB PO SCH (08:38)
[2019-01-04] MEDS: MULTIVIT/CA CARB/B CMPLX/FA TAB GTB SCH (08:38)
[2019-01-04] MEDS: SENNA TAB PO SCH ×2 (08:38→20:34)
[2019-01-04] MEDS: ASPIRIN (EC) 81 MG TAB PO SCH (08:38)
[2019-01-04] MEDS: VORICONAZOLE 200 MG TAB PO SCH ×2 (08:38→20:36)
[2019-01-04] MEDS: METOPROLOL 50 MG TAB GTB SCH ×2 (08:39→20:35)
[2019-01-04] MEDS: AMLODIPINE 5 MG TAB GTB SCH (08:39)
[2019-01-04] MEDS: SEVELAMER CARBONATE 0.8 GM PKT NGT SCH ×3 (08:39→20:34)
--- NOTE | 2019-01-04 09:42 | CONS ---
Assessment/Plan Assessment/Plan Hospital Course (Demo Recall) 83 yo female in ESRD on HD presents for melena and anemia and also found to have edematous Rt hand/wrist Interval Hx: No acute changes. Tolerating tube feeds at 30cc. No evidence of GI bleeding. 1. UGIB manifested through melena and anemia -no melena noted or GI bleeding noted by nursing staff -RESOLVED 2. Anemia, acute on chronic, acute likely due to blood loss in rt hand -No evidence of active GI bleeding, consider etiology of blood loss anemia to be from hematoma in hand -Fe wnl, TIBC low, Ferritin, folate, b12 high, FOB neg -likely due to chronic disease 3. ESRD on HD -Followed by nephrology 4. Hematoma of Rt hand and wrist -I and D drainage by Dr. Dean 11/17 -IMPROVED 5. Dysphagia -on tube feeds 6. DM2 7. HTN 8. H/O diastolic dysfunction heart failure 9. S/P EGD 11/18 10. Moderate gastritis with no bleeding noted. 11. Hospital acquired pneumonia -improved 12. Yeast in urine cx -cx 12/20 12. Emesis -no emesis in the last 24 hours per nursing staff Gastric biopsy results: Stomach, biopsy: -- Antral and oxyntic mucosa showing minimal plasma cell infiltration and small focus of intestinal metaplasia. -- No Helicobacter pylori is identified in Giemsa stain (positive control concurrently reviewed). -- No evidence of dysplasia or malignancy. Plan: Continue to monitor patient for Emesis,maintain aspiration precautions Try titrating tube feeds upto 35 cc/hr Give medications in small doses Reglan 5 mg prior to meals, low dose to due ESRD Continue present care Monitor HH closely and for active GI bleeding, Pt examined and plan of care discussed with Dr. Baird Consultation Date/Type/Reason Admit Date/Time Nov 16, 2018 at 05:51 Initial Consult Date 11/30/18 Requesting Provider: DYLON WALLS MD Date/Time of Note DATE: 01/04/19 TIME: 09:35 Exam/Review of Systems Exam Vitals Vital Signs Date Temp Pulse Resp B/P (MAP) Pulse Ox O2 O2 Flow FiO2 Time Delivery Rate 01/04/19 64 98 Room Air 08:29 01/04/19 97.9 18 114/56 08:04 (75) 01/01/19 21 15:47 Intake and Output 01/03/19 01/03/19 01/04/19 1515:00 23:00 07:00 IntakeIntake Total 710 ml 510 ml OutputOutput Total 2400 ml BalanceBalance -2400 ml 710 ml 510 ml Constitutional: frail (cachectic) Head: normocephalic Respiratory: clear to auscultation Cardiovascular: regular rate and rhythm, nl pulses Gastrointestinal: soft, non-tender 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: confused Results Result Diagram: 01/04/19 0541 01/04/19 0541 Results 24hrs Laboratory Tests Test 01/03/19 20:41 01/04/19 03:18 01/04/19 05:41 01/04/19 08:37 Bedside Glucose 182 148 147 White Blood Count 6.7 # Red Blood Count 3.36 #L Hemoglobin 8.6 L Hematocrit 27.8 L Mean Corpuscular 82.7 Volume Mean Corpuscular 25.6 L Hemoglobin Mean Corpuscular 30.9 L Hemoglobin Concent Red Cell 16.0 H Distribution Width Platelet Count 248 # Mean Platelet Volume 12.4 H Immature 0.600 H Granulocytes % Neutrophils % 58.7 Lymphocytes % 16.1 Monocytes % 14.9 H Eosinophils % 9.4 H Basophils % 0.3 Nucleated Red Blood 0.6 H Cells % Immature 0.040 H Granulocytes # Neutrophils # 4.0 Lymphocytes # 1.1 Monocytes # 1.0 H Eosinophils # 0.6 H Basophils # 0.0 Nucleated Red Blood 0.0 Cells # Sodium Level 136 Potassium Level 4.5 Chloride Level 98 Carbon Dioxide Level 27 Anion Gap 11 Blood Urea Nitrogen 50 H Creatinine 2.11 H Est Glomerular Filtrat Rate mL/min Glucose Level 132 Calcium Level 9.2 Phosphorus Level 3.5 Magnesium Level 3.0 H Medications Medication Current Medications IV Flush (NS 3 ml) 3 ml PER PROTOCOL IV ; Start 11/16/18 at 09:00 Ondansetron HCl (Zofran Inj) 4 mg Q6H PRN IV NAUSEA AND/OR VOMITING Last administered on 12/31/18at 11:45; Admin Dose 4 MG; Start 11/16/18 at 09:00 Hydralazine HCl (Apresoline) 10 mg Q4H PRN IV ELEVATED BLOOD PRESSURE Last administered on 12/22/18at 19:40; Admin Dose 10 MG; Start 11/17/18 at 10:30 Acetaminophen/ Hydrocodone Bitart ([place] (5/325)) 1 tab Q3H PRN PO MODERATE PAIN LEVEL 4-6 Last administered on 12/26/18 22:10; Admin Dose 1 TAB; Start 11/17/18 at 14:30 Albumin Human 50 ml @ 100 mls/hr WITH DIALYSIS PRN IV SBP<90 Last administered on 12/31/18 15:54; Admin Dose 100 MLS/HR; Start 11/18/18 at 14:30 Morphine Sulfate (morphine) 6 mg Q4H PRN PO SEVERE PAIN LEVEL 7-10 Last administered on 12/30/18 09:15; Admin Dose 6 MG; Start 11/18/18 at 23:00 Docusate Sodium (Colace Liquid Cup) 100 mg DAILY GTB Last administered on 01/04/19 08:38; Admin Dose 100 MG; Start 11/19/18 at 09:30 Multivit/Ca Carb/ B Cmplx/FA/Prenat ([place]-Roque) 1 tab DAILY GTB Last administered on 01/04/19 08:38; Admin Dose 1 TAB; Start 11/24/18 at 09:00 Lansoprazole (Prevacid) 30 mg DAILY GTB Last administered on 01/04/19 08:38; Admin Dose 30 MG; Start 11/26/18 at 09:00 Acetaminophen (Tylenol Supp) 650 mg Q4H PRN [place] MILD PAIN(1-3) OR TEMP>38C Last administered on 11/26/18 08:32; Admin Dose 650 MG; Start 11/26/18 at 08:30 Epoetin Michael (Epogen (Esrd)) 4,000 units MoWeFr@17 SC Last administered on 01/03/19 18:23; Admin Dose 4,000 UNITS; Start 12/06/18 at 17:00 Hydralazine HCl (Apresoline) 50 mg Q8 PO Last administered on 01/04/19 05:48; Admin Dose 50 MG; Start 12/07/18 at 22:00 Metoprolol Tartrate (Lopressor) 100 mg BID GTB Last administered on 01/04/19 08:39; Admin Dose 100 MG; Start 12/13/18 at 21:00 Aspirin (Halfprin) 81 mg DAILY PO Last administered on 01/04/19 08:38; Admin Dose 81 MG; Start 12/13/18 at 19:30 Senna (Senokot) 1 tab BID PO Last administered on 01/04/19 08:38; Admin Dose 1 TAB; Start 12/17/18 at 21:00 Acetaminophen (Tylenol Tab) 650 mg Q6H PRN PO PAIN LEVEL 1-3 OR FEVER Last administered on 12/21/18 05:01; Admin Dose 650 MG; Start 12/17/18 at 15:00 Albuterol/ Ipratropium (Duoneb) 3 ml Q6H RESP THERAPY PRN HHN sob Last administered on 12/19/18 03:51; Admin Dose 3 ML; Start 12/17/18 at 09:00 Docusate Sodium (Colace) 100 mg Q12H PRN PO CONSTIPATION Last administered on 05:01; Admin Dose 100 MG; Start 12/17/18 at 21:00 Ferrous Sulfate (Feosol Liquid Cup) 300 mg BID GTB Last administered on 01/04/19 08:38; Admin Dose 300 MG; Start 12/17/18 at 21:00 Guaifenesin/ Dextromethorphan (Robitussin Dm Liquid Cup) 5 ml Q4H PRN PO cough Last administered on 12/24/18 21:16; Admin Dose 5 ML; Start 12/17/18 at 18:00 Linagliptin (Tradjenta) 5 mg DAILY GTB Last administered on 01/04/19 08:38; Admin Dose 5 MG; Start 12/17/18 at 09:00 Folic Acid (Folic Acid) 1 mg DAILY GTB Last administered on 01/04/19 08:38; Admin Dose 1 MG; Start 12/18/18 at 09:00 Metoclopramide HCl (Reglan) 5 mg Q8 PRN IV VOMITTING; Start 12/20/18 at 10:00 IV Flush (NS 10 ml) 10 ml AFTER DIALYSIS CATHETER ; Start 12/22/18 at 10:00 Voriconazole (Vfend) 200 mg BID PO Last administered on 01/04/19 08:38; Admin Dose 200 MG; Start 12/22/18 at 11:00 Magnesium Hydroxide (Milk Of Mag) 30 ml DAILY PRN PO CONSTIPATION; Start 12/22/18 at 17:00 Sodium Chloride (NS) -To prime the dialy... DIRECTED FOR HD PRN IV HD; Start 12/23/18 at 16:00 Amlodipine Besylate (Norvasc) 5 mg DAILY GTB Last administered on 01/04/19 08:39; Admin Dose 5 MG; Start 12/25/18 at 15:30 Polyethylene Glycol (Miralax) 17 gm DAILY GTB Last administered on 01/04/19 08:38; Admin Dose 17 GM; Start 12/27/18 at 09:00 Insulin Glargine (Lantus) 4 units DAILY@2000 SC Last administered on 01/03/19 20:42; Admin Dose 4 UNITS; Start 12/28/18 at 20:00 Miscellaneous Information 1 ea NOTE XX ; Start 12/28/18 at 19:00 Glucose (Glutose) 15 gm Q15M PRN PO DECREASED GLUCOSE; Start 12/28/18 at 19:00 Glucose (Glutose) 22.5 gm Q15M PRN PO DECREASED GLUCOSE; Start 12/28/18 at 19:00 Dextrose (D50w Syringe) 25 ml Q15M PRN IV DECREASED GLUCOSE; Start 12/28/18 at 19:00 Dextrose (D50w Syringe) 50 ml Q15M PRN IV DECREASED GLUCOSE; Start 12/28/18 at 19:00 Glucagon (Glucagen) 1 mg Q15M PRN IM DECREASED GLUCOSE; Start 12/28/18 at 19:00 Glucose (Glutose) 15 gm Q15M PRN BUCCAL DECREASED GLUCOSE; Start 12/28/18 at 19:00 Sevelamer Carbonate (Renvela) 1.6 gm TID NGT Last administered on 01/04/19 08:39; Admin Dose 1.6 GM; Start 12/31/18 at 13:00 Meropenem/Sodium Chloride 50 ml @ 100 mls/hr Q24H IVPB Last administered on 20:44; Admin Dose 100 MLS/HR; Start 12/31/18 at 20:00 Metoclopramide HCl (Reglan) 5 mg Q8 PO Last administered on 01/04/19 05:47; Admin Dose 5 MG; Start 01/02/19 at 07:00 Olanzapine (Zyprexa) 2.5 mg DAILY PO Last administered on 01/04/19 08:38; Admin Dose 2.5 MG; Start 01/03/19 at 09:00 AUGUSTINE MONIQUE NP Jan 04, 2019 09:42
--- NOTE | 2019-01-04 11:26 | CONS ---
Consult Date/Type/Reason Admit Date/Time Nov 16, 2018 at 05:51 Initial Consult Date 11/16/18 Type of Consultation: cv Requesting Provider: DYLON WALLS MD Date/Time of Note DATE: 01/04/19 TIME: 11:25 Subjective Cardiology follow up note Sl DW/ Staff and telemetry was reviewed. Patient is off tele now pt continues to be confused but calm and cooperative now no report of any chest pain or pressure or palpitations but pt is a very poor historian Events noted. 12/13/18: Patient went into atrial fibrillation rapid ventricular response during hemodialysis . Patient has been transferred to telemetry and converted back to sinus rhythm remains in sinus rhythm s/p I/D 11/17 EGD 11.18.18 O: General: Elderly frail female in no acute distress HEENT: NC/AT. Eyes are closed NECK: NO JVD. no stridor. CV: RRR. systolic murmur; no gallop or rubs. PULM: no wheezing or rhonchi. GI: SOFT, NT, ND, no rebound or guarding neuro: AWAKE and alert Psych: calm now rectal: deferred Objective Vitals Vital Signs Date Temp Pulse Resp B/P (MAP) Pulse Ox O2 O2 Flow FiO2 Time Delivery Rate 01/04/19 64 98 Room Air 08:29 01/04/19 97.9 18 114/56 08:04 (75) 01/01/19 21 15:47 Intake and Output 01/03/19 01/03/19 01/04/19 1515:00 23:00 07:00 IntakeIntake Total 710 ml 510 ml OutputOutput Total 2400 ml BalanceBalance -2400 ml 710 ml 510 ml Results/Medications Result Diagram: 01/04/19 0541 01/04/19 0541 Results 24 hrs Laboratory Tests Test 01/03/19 20:41 01/04/19 03:18 01/04/19 05:41 01/04/19 08:37 Bedside Glucose 182 148 147 White Blood Count 6.7 # Red Blood Count 3.36 #L Hemoglobin 8.6 L Hematocrit 27.8 L Mean Corpuscular 82.7 Volume Mean Corpuscular 25.6 L Hemoglobin Mean Corpuscular 30.9 L Hemoglobin Concent Red Cell 16.0 H Distribution Width Platelet Count 248 # Mean Platelet Volume 12.4 H Immature 0.600 H Granulocytes % Neutrophils % 58.7 Lymphocytes % 16.1 Monocytes % 14.9 H Eosinophils % 9.4 H Basophils % 0.3 Nucleated Red Blood 0.6 H Cells % Immature 0.040 H Granulocytes # Neutrophils # 4.0 Lymphocytes # 1.1 Monocytes # 1.0 H Eosinophils # 0.6 H Basophils # 0.0 Nucleated Red Blood 0.0 Cells # Sodium Level 136 Potassium Level 4.5 Chloride Level 98 Carbon Dioxide Level 27 Anion Gap 11 Blood Urea Nitrogen 50 H Creatinine 2.11 H Est Glomerular Filtrat Rate mL/min Glucose Level 132 Calcium Level 9.2 Phosphorus Level 3.5 Magnesium Level 3.0 H Home Meds Reported Medications Sennosides* (Senna Lax*) 8.6 Mg Tablet, 1 TAB PO BID, TAB 11/16/18 Sevelamer Carbonate* (Renvela*) 0.8 Gm Powd.pack, 0.8 GM PO WITH MEALS, PACKET 11/16/18 Lansoprazole* (Lansoprazole*) 30 Mg Capsule.dr, 30 MG PO QAM, CAP 11/16/18 Hydralazine Hcl* (Hydralazine Hcl*) 25 Mg Tab, 25 MG PO Q8, #90 TAB 11/16/18 Ferrous Sulfate* (Ferrous Sulfate*) 325 Mg Tabec, 325 MG PO BID for anemia, TAB 11/16/18 Valproate Sodium (Valproic Acid) 250 Mg/5 Ml Solution, 250 MG PO Q8, ML 11/16/18 Insulin Aspart* (Novolog Insulin Pen*) 100 Unit/Ml Soln, 0 SC .SLIDING SCALE AC, EA IF BS 160-200=2 UNITS,201-250=4 UNITS,251-300=8 UNITS,301-350=12 UNITS;351-400=16 UNITS THEN CALL MD. 10/16/18 Ondansetron Hcl* (Zofran*) 4 Mg Tab, 4 MG GTB Q4H PRN for NAUSEA AND OR VOMITING, TAB 10/16/18 Linagliptin (TRADJENTA) 5 Mg Tablet, 5 MG GTB DAILY, TAB 10/16/18 Quetiapine Fumarate* (Seroquel*) 25 Mg Tablet, 25 MG GTB BID, #60 TAB 10/16/18 [Nephro-Roque] No Conflict Check, 0.8 MG GTB DAILY 10/16/18 Polyethylene Glycol* (Miralax*) 17 Gm Powd.pack, 17 GM GTB Q24H, #30 PACKET 10/16/18 Metoprolol Tartrate* (Lopressor*) 50 Mg Tab, 50 MG GTB DAILY, #60 TAB Q MON,WED,FRI,SUN,HOLD FOR SBP<110 OR MN<60 10/16/18 Metoprolol Tartrate* (Lopressor*) 50 Mg Tab, 50 MG GTB BID, #60 TAB QTUE,ANDREW,SAT,HOLD FOR SBP<110 OR MN<60 10/16/18 Linaclotide (LINZESS) 145 Mcg Capsule, 145 MCG GTB DAILY, #30 CAP 10/16/18 Ipratropium-Albuterol (Ipratropium-Albuterol) 0.5-3 Mg/3 Ml Ampul.neb, 3 ML INHALATION Q6, #30 VIAL FOR 14 DAYS,STOP DATE 10/17/18 10/16/18 Hydralazine Hcl* (Hydralazine Hcl*) 25 Mg Tab, 25 MG GTB DAILY, #60 TAB Q TUE,ANDREW,SAT,HOLD IF SBP<110 OR MN<60 10/16/18 Folic Acid* (Folic Acid*) 1 Mg Tablet, 1 MG GTB DAILY, TAB 10/16/18 Docusate Sodium* (Colace*) 100 Mg Capsule, 100 MG GTB DAILY, #30 CAP 10/16/18 Lorazepam* (Lorazepam*) 1 Mg Tablet, 1 MG GTB HS PRN for ANXIETY, #30 TAB Q TUE,ANDREW,SAT 10/16/18 Amlodipine Besylate* (Norvasc*) 5 Mg Tablet, 5 MG GTB BID, TAB TAKE Q TUE,ANDREW,SAT FOR HTN, HOLD FOR SBP<110 OR MN<60 10/16/18 Acetaminophen* (Acetaminophen*) 650 Mg Tablet, 650 MG GTB Q6H PRN for PAIN LEVEL 1-1010, #30 TAB 10/16/18 Medications Current Medications IV Flush (NS 3 ml) 3 ml PER PROTOCOL IV ; Start 11/16/18 at 09:00 Ondansetron HCl (Zofran Inj) 4 mg Q6H PRN IV NAUSEA AND/OR VOMITING Last administered on 12/31/18at 11:45; Admin Dose 4 MG; Start 11/16/18 at 09:00 Hydralazine HCl (Apresoline) 10 mg Q4H PRN IV ELEVATED BLOOD PRESSURE Last administered on 12/22/18 19:40; Admin Dose 10 MG; Start 11/17/18 at 10:30 Acetaminophen/ Hydrocodone Bitart ([place] (5/325)) 1 tab Q3H PRN PO MODERATE PAIN LEVEL 4-6 Last administered on 12/26/18 22:10; Admin Dose 1 TAB; Start 11/17/18 at 14:30 Albumin Human 50 ml @ 100 mls/hr WITH DIALYSIS PRN IV SBP<90 Last administered on 12/31/18 15:54; Admin Dose 100 MLS/HR; Start 11/18/18 at 14:30 Morphine Sulfate (morphine) 6 mg Q4H PRN PO SEVERE PAIN LEVEL 7-10 Last administered on 12/30/18 09:15; Admin Dose 6 MG; Start 11/18/18 at 23:00 Docusate Sodium (Colace Liquid Cup) 100 mg DAILY GTB Last administered on 01/04/19 08:38; Admin Dose 100 MG; Start 11/19/18 at 09:30 Multivit/Ca Carb/ B Cmplx/FA/Prenat ([place]-Roque) 1 tab DAILY GTB Last administered on 01/04/19 08:38; Admin Dose 1 TAB; Start 11/24/18 at 09:00 Lansoprazole (Prevacid) 30 mg DAILY GTB Last administered on 01/04/19 08:38; Admin Dose 30 MG; Start 11/26/18 at 09:00 Acetaminophen (Tylenol Supp) 650 mg Q4H PRN [place] MILD PAIN(1-3) OR TEMP>38C Last administered on 11/26/18 08:32; Admin Dose 650 MG; Start 11/26/18 at 08:30 Epoetin Michael (Epogen (Esrd)) 4,000 units MoWeFr@17 SC Last administered on 01/03/19 18:23; Admin Dose 4,000 UNITS; Start 12/06/18 at 17:00 Hydralazine HCl (Apresoline) 50 mg Q8 PO Last administered on 01/04/19 05:48; Admin Dose 50 MG; Start 12/07/18 at 22:00 Metoprolol Tartrate (Lopressor) 100 mg BID GTB Last administered on 01/04/19 08:39; Admin Dose 100 MG; Start 12/13/18 at 21:00 Aspirin (Halfprin) 81 mg DAILY PO Last administered on 01/04/19 08:38; Admin Dose 81 MG; Start 12/13/18 at 19:30 Senna (Senokot) 1 tab BID PO Last administered on 01/04/19 08:38; Admin Dose 1 TAB; Start 12/17/18 at 21:00 Acetaminophen (Tylenol Tab) 650 mg Q6H PRN PO PAIN LEVEL 1-3 OR FEVER Last administered on 12/21/18 05:01; Admin Dose 650 MG; Start 12/17/18 at 15:00 Albuterol/ Ipratropium (Duoneb) 3 ml Q6H RESP THERAPY PRN HHN sob Last administered on 12/19/18 03:51; Admin Dose 3 ML; Start 12/17/18 at 09:00 Docusate Sodium (Colace) 100 mg Q12H PRN PO CONSTIPATION Last administered on 12/21/18 05:01; Admin Dose 100 MG; Start 12/17/18 at 21:00 Ferrous Sulfate (Feosol Liquid Cup) 300 mg BID GTB Last administered on 01/04 08:38; Admin Dose 300 MG; Start 12/17/18 at 21:00 Guaifenesin/ Dextromethorphan (Robitussin Dm Liquid Cup) 5 ml Q4H PRN PO cough Last administered on 12/24/18 21:16; Admin Dose 5 ML; Start 12/17/18 at 18:00 Linagliptin (Tradjenta) 5 mg DAILY GTB Last administered on 01/04/19 08:38; Admin Dose 5 MG; Start 12/17/18 at 09:00 Folic Acid (Folic Acid) 1 mg DAILY GTB Last administered on 01/04/19 08:38; Admin Dose 1 MG; Start 12/18/18 at 09:00 Metoclopramide HCl (Reglan) 5 mg Q8 PRN IV VOMITTING; Start 12/20/18 at 10:00 IV Flush (NS 10 ml) 10 ml AFTER DIALYSIS CATHETER ; Start 12/22/18 at 10:00 Voriconazole (Vfend) 200 mg BID PO Last administered on 01/04/19 08:38; Admin Dose 200 MG; Start 12/22/18 at 11:00 Magnesium Hydroxide (Milk Of Mag) 30 ml DAILY PRN PO CONSTIPATION; Start 12/10 01/25 at 17:00 Sodium Chloride (NS) -To prime the dialy... DIRECTED FOR HD PRN IV HD; Start 12/23/18 at 16:00 Amlodipine Besylate (Norvasc) 5 mg DAILY GTB Last administered on 01/04/19 08:39; Admin Dose 5 MG; Start 12/25/18 at 15:30 Polyethylene Glycol (Miralax) 17 gm DAILY GTB Last administered on 01/04/19 08:38; Admin Dose 17 GM; Start 12/27/18 at 09:00 Insulin Glargine (Lantus) 4 units DAILY@2000 SC Last administered on 01/03/19 20:42; Admin Dose 4 UNITS; Start 12/28/18 at 20:00 Miscellaneous Information 1 ea NOTE XX ; Start 12/28/18 at 19:00 Glucose (Glutose) 15 gm Q15M PRN PO DECREASED GLUCOSE; Start 12/28/18 at 19:00 Glucose (Glutose) 22.5 gm Q15M PRN PO DECREASED GLUCOSE; Start 12/28/18 at 19:00 Dextrose (D50w Syringe) 25 ml Q15M PRN IV DECREASED GLUCOSE; Start 12/28/18 at 19:00 Dextrose (D50w Syringe) 50 ml Q15M PRN IV DECREASED GLUCOSE; Start 12/28/18 at 19:00 Glucagon (Glucagen) 1 mg Q15M PRN IM DECREASED GLUCOSE; Start 12/28/18 at 19:00 Glucose (Glutose) 15 gm Q15M PRN BUCCAL DECREASED GLUCOSE; Start 12/28/18 at 19:00 Sevelamer Carbonate (Renvela) 1.6 gm TID NGT Last administered on 01/04/19 08:39; Admin Dose 1.6 GM; Start 12/31/18 at 13:00 Meropenem/Sodium Chloride 50 ml @ 100 mls/hr Q24H IVPB Last administered on 01/03/19at 20:44; Admin Dose 100 MLS/HR; Start 12/31/18 at 20:00 Metoclopramide HCl (Reglan) 5 mg Q8 PO Last administered on 01/04/19at 05:47; Admin Dose 5 MG; Start 01/02/19 at 07:00 Olanzapine (Zyprexa) 2.5 mg DAILY PO Last administered on 01/04/19at 08:38; Admin Dose 2.5 MG; Start 01/03/19 at 09:00 Assessment/Plan Hospital Course (Demo Recall) P-atrial fibrillation rapid ventricular response: Currently back in sinus rhythm fungemia /fungal urinary tract infection Status post right hand hematoma: Status post I&D Renal failure on dialysis Hypertension Dementia Anemia Possible GI bleed: Status post EGD AI Recommendations: pt is not on full anticoagulation due to the fall risk as well as anemia cont beta-farrah Dialysis as per renal team Neuro workup and treatment as per internal medicine Antibiotic as per ID and internal medicine asa for now and monitor Thank you for his referral. We will continue to follow along with you as needed basis CHRISTEN ESCOBEDO MD [facility] CHRISTEN ESCOBEDO MD Jan 04, 2019 11:26
--- NOTE | 2019-01-04 14:04 | PN ---
DATE: 01/04/2019 Patient seen. Overall appears to be stable, comfortable, no acute events noted. cafeteria manager assist ed with placement. PHYSICAL EXAMINATION: VITAL SIGNS: Temperature 97.9, pulse 64, respirations 18, blood pressure 114/56, saturation 98% room air. GENERAL: No acute distress. HEENT: Normocephalic, atraumatic. Pale. CARDIOVASCULAR: S1 and S2, regular rate. LUNGS: Clear. ABDOMEN: Soft. G-tube in place. EXTREMITIES: No clubbing, cyanosis, or edema. LABORATORY DATA: White count 6.7, hemoglobin 8.6, hematocrit 28, platelet count 248 with normal diff erential. Chemistry: Sodium 136, potassium 4.5, chloride 98, bicarbonate 27, BUN is 50, creatinine 2.1, glucose 132. MEDICATIONS: All reviewed, include: 1. Zyprexa. 2. Reglan. 3. Merrem. 4. Renvela. 5. Lantus. 6. Hypoglycemic protocol. 7. MiraLax. 8. Norvasc. 9. Milk of magnesia, 10. Voriconazole. 11. Colace. 12. Ferrous sulfate. 13. Robitussin. 14. Tylenol. 15. DuoNeb. 16. Tradjenta. 17. Lopressor. 18. Aspirin. 19. Hydralazine. 20. Epogen. 21. Prevacid. 22. Tylenol. 23. Renavite. 24. Morphine. 25. [place]. 26. Hydralazine. 27. Zosyn. ASSESSMENT AND PLAN: This is an 83-year-old Pakistani female with end-stage renal disease, advanced d ementia, ASCVD, status post bacteremia, fungemia, urinary tract infection, status post evacuation of right hand hematoma who recently is currently being treated for aspiration pneumonia. 1. Respiratory. Continue treatment with Merrem for aspiration pneumonia. Patient is afebrile, clin ically better. 2. Dysphagia. Continue G-tube feeding at 30 mL an hour. With higher dose the patient had recurrent vomiting. Taper down Reglan. 3. Cardiovascular. Vitals remain stable. 4. Diabetes mellitus. Glucose level in the 100s with Levemir and Tradjenta. 5. End-stage renal disease. 6. Next dialysis for tomorrow. 7. Anemia. Monitor hemoglobin and hematocrit. Continue Epogen. Transfuse p.r.n. 8. Urinary tract infection. Continue Vfend. 9. Mood disorder, on low dose Zyprexa. 10. Awaiting placement as social work case manager is assisting. Remains medically stable for discharge, once b ed is available. We will continue to follow closely. Dictated By: DYLON HULL/MADAN Conf#: [id number] DID#: [id number] CC: DYLON WALLS MD;*EndCC*
[2019-01-04 14:14] VITALS: BP 109/55; PULSE 60; RESP 16
--- NOTE | 2019-01-04 15:12 | CONS ---
Assessment/Plan Assessment/Plan Hospital Course (Demo Recall) No events, looks comfortable, no fevers overnight Antimicrobials: Meropenem, day #5 Blood culture repeated on November 29 grew Dominique glabrata blood cultures since December 01 that were drawn from permacath negative blood culture on December 03 negative, urine culture growing C glabrata Indwelling: Left chest permacath, PEG Physical examination: Chronically ill-appearing elderly woman who is awake, confused, in no distress. Head atraumatic normocephalic. Neck is supple. Chest rise symmetrical breath sounds diminished bases. Heart: S1-S2. Abdomen soft bowel sounds present, right upper extremity Armani wrapped Assessment: 1. Recurrent aspiration event, patient is on meropenem 2. Status post UTI==> T glabrata 3. S/p Fungemia secondary to urinary tract infection 4. Right hand hematoma, status post I&D 11/17/18 5. Status post VRE bacteremia/new Pcath 6. End-stage renal disease, hemodialysis dependent 7. Failure to thrive 8. Diabetes 9. Anemia 10. P Afib Plan: Remains stable, continue present care, aspiration precautions Consultation Date/Type/Reason Admit Date/Time Nov 16, 2018 at 05:51 Initial Consult Date 11/16/18 Type of Consult id Requesting Provider: DYLON WALLS MD Date/Time of Note DATE: 01/04/19 TIME: 15:12 Exam/Review of Systems Exam Vitals Vital Signs Date Temp Pulse Resp B/P (MAP) Pulse Ox O2 O2 Flow FiO2 Time Delivery Rate 01/04/19 21 14:49 01/04/19 98.0 60 16 109/55 100 14:14 (73) 01/04/19 Room Air 08:29 Intake and Output 01/03/19 01/03/19 01/04/19 1515:00 23:00 07:00 IntakeIntake Total 710 ml 510 ml OutputOutput Total 2400 ml BalanceBalance -2400 ml 710 ml 510 ml Results Result Diagram: 01/04/19 0541 01/04/19 0541 Results 24hrs Laboratory Tests Test 01/03/19 20:41 01/04/19 03:18 01/04/19 05:41 01/04/19 08:37 Bedside Glucose 182 148 147 White Blood Count 6.7 # Red Blood Count 3.36 #L Hemoglobin 8.6 L Hematocrit 27.8 L Mean Corpuscular 82.7 Volume Mean Corpuscular 25.6 L Hemoglobin Mean Corpuscular 30.9 L Hemoglobin Concent Red Cell 16.0 H Distribution Width Platelet Count 248 # Mean Platelet Volume 12.4 H Immature 0.600 H Granulocytes % Neutrophils % 58.7 Lymphocytes % 16.1 Monocytes % 14.9 H Eosinophils % 9.4 H Basophils % 0.3 Nucleated Red Blood 0.6 H Cells % Immature 0.040 H Granulocytes # Neutrophils # 4.0 Lymphocytes # 1.1 Monocytes # 1.0 H Eosinophils # 0.6 H Basophils # 0.0 Nucleated Red Blood 0.0 Cells # Sodium Level 136 Potassium Level 4.5 Chloride Level 98 Carbon Dioxide Level 27 Anion Gap 11 Blood Urea Nitrogen 50 H Creatinine 2.11 H Est Glomerular Filtrat Rate mL/min Glucose Level 132 Calcium Level 9.2 Phosphorus Level 3.5 Magnesium Level 3.0 H Test 01/04/19 14:27 Bedside Glucose 146 Medications Medication Current Medications IV Flush (NS 3 ml) 3 ml PER PROTOCOL IV ; Start 11/16/18 at 09:00 Ondansetron HCl (Zofran Inj) 4 mg Q6H PRN IV NAUSEA AND/OR VOMITING Last administered on 12/31/18at 11:45; Admin Dose 4 MG; Start 11/16/18 at 09:00 Hydralazine HCl (Apresoline) 10 mg Q4H PRN IV ELEVATED BLOOD PRESSURE Last administered on 12/22/18 19:40; Admin Dose 10 MG; Start 11/17/18 at 10:30 Acetaminophen/ Hydrocodone Bitart ([place] (5/325)) 1 tab Q3H PRN PO MODERATE PAIN LEVEL 4-6 Last administered on 12/26/18at 22:10; Admin Dose 1 TAB; Start 11/17/18 at 14:30 Albumin Human 50 ml @ 100 mls/hr WITH DIALYSIS PRN IV SBP<90 Last administered on 12/31/18at 15:54; Admin Dose 100 MLS/HR; Start 11/18/18 at 14:30 Morphine Sulfate (morphine) 6 mg Q4H PRN PO SEVERE PAIN LEVEL 7-10 Last administered on 12/30/18 09:15; Admin Dose 6 MG; Start 11/18/18 at 23:00 Docusate Sodium (Colace Liquid Cup) 100 mg DAILY GTB Last administered on 01/04/19 08:38; Admin Dose 100 MG; Start 11/19/18 at 09:30 Multivit/Ca Carb/ B Cmplx/FA/Prenat (Kianna-Roque) 1 tab DAILY GTB Last administered on 01/04/19 08:38; Admin Dose 1 TAB; Start 11/24/18 at 09:00 Lansoprazole (Prevacid) 30 mg DAILY GTB Last administered on 01/04/19 08:38; Admin Dose 30 MG; Start 11/26/18 at 09:00 Acetaminophen (Tylenol Supp) 650 mg Q4H PRN [place] MILD PAIN(1-3) OR TEMP>38C Last administered on 11/26/18 08:32; Admin Dose 650 MG; Start 11/26/18 at 08:30 Epoetin Michael (Epogen (Esrd)) 4,000 units MoWeFr@17 SC Last administered on 01/03/19 18:23; Admin Dose 4,000 UNITS; Start 12/06/18 at 17:00 Hydralazine HCl (Apresoline) 50 mg Q8 PO Last administered on 01/04/19 05:48; Admin Dose 50 MG; Start 12/07/18 at 22:00 Metoprolol Tartrate (Lopressor) 100 mg BID GTB Last administered on 01/04/19 08:39; Admin Dose 100 MG; Start 12/13/18 at 21:00 Aspirin (Halfprin) 81 mg DAILY PO Last administered on 01/04/19 08:38; Admin Dose 81 MG; Start 12/13/18 at 19:30 Senna (Senokot) 1 tab BID PO Last administered on 01/04/19 08:38; Admin Dose 1 TAB; Start 12/17/18 at 21:00 Acetaminophen (Tylenol Tab) 650 mg Q6H PRN PO PAIN LEVEL 1-3 OR FEVER Last administered on 12/21/18 05:01; Admin Dose 650 MG; Start 12/17/18 at 15:00 Albuterol/ Ipratropium (Duoneb) 3 ml Q6H RESP THERAPY PRN HHN sob Last administered on 12/19/18 03:51; Admin Dose 3 ML; Start 12/17/18 at 09:00 Docusate Sodium (Colace) 100 mg Q12H PRN PO CONSTIPATION Last administered on 12/21/18 05:01; Admin Dose 100 MG; Start 12/17/18 at 21:00 Ferrous Sulfate (Feosol Liquid Cup) 300 mg BID GTB Last administered on 01/04/19 08:38; Admin Dose 300 MG; Start 12/17/18 at 21:00 Guaifenesin/ Dextromethorphan (Robitussin Dm Liquid Cup) 5 ml Q4H PRN PO cough Last administered on 12/24/18 21:16; Admin Dose 5 ML; Start 12/17/18 at 18:00 Linagliptin (Tradjenta) 5 mg DAILY GTB Last administered on 01/04/19 08:38; Admin Dose 5 MG; Start 12/17/18 at 09:00 Folic Acid (Folic Acid) 1 mg DAILY GTB Last administered on 01/04/19 08:38; Admin Dose 1 MG; Start 12/18/18 at 09:00 Metoclopramide HCl (Reglan) 5 mg Q8 PRN IV VOMITTING; Start 12/20/18 at 10:00 IV Flush (NS 10 ml) 10 ml AFTER DIALYSIS CATHETER ; Start 12/22/18 at 10:00 Voriconazole (Vfend) 200 mg BID PO Last administered on 01/04/19 08:38; Admin Dose 200 MG; Start 12/22/18 at 11:00 Magnesium Hydroxide (Milk Of Mag) 30 ml DAILY PRN PO CONSTIPATION; Start 12/22/18 at 17:00 Sodium Chloride (NS) -To prime the dialy... DIRECTED FOR HD PRN IV HD; Start 12/23/18 at 16:00 Amlodipine Besylate (Norvasc) 5 mg DAILY GTB Last administered on 01/04/19 08:39; Admin Dose 5 MG; Start 12/25/18 at 15:30 Polyethylene Glycol (Miralax) 17 gm DAILY GTB Last administered on 01/04/19 08:38; Admin Dose 17 GM; Start 12/27/18 at 09:00 Insulin Glargine (Lantus) 4 units DAILY@2000 SC Last administered on 01/03/19 20:42; Admin Dose 4 UNITS; Start 12/28/18 at 20:00 Miscellaneous Information 1 ea NOTE XX ; Start 12/28/18 at 19:00 Glucose (Glutose) 15 gm Q15M PRN PO DECREASED GLUCOSE; Start 12/28/18 at 19:00 Glucose (Glutose) 22.5 gm Q15M PRN PO DECREASED GLUCOSE; Start 12/28/18 at 19:00 Dextrose (D50w Syringe) 25 ml Q15M PRN IV DECREASED GLUCOSE; Start 12/28/18 at 19:00 Dextrose (D50w Syringe) 50 ml Q15M PRN IV DECREASED GLUCOSE; Start 12/28/18 at 19:00 Glucagon (Glucagen) 1 mg Q15M PRN IM DECREASED GLUCOSE; Start 12/28/18 at 19:00 Glucose (Glutose) 15 gm Q15M PRN BUCCAL DECREASED GLUCOSE; Start 12/28/18 at 19:00 Sevelamer Carbonate (Renvela) 1.6 gm TID NGT Last administered on 01/04/19at 1 4:23; Admin Dose 1.6 GM; Start 12/31/18 at 13:00 Meropenem/Sodium Chloride 50 ml @ 100 mls/hr Q24H IVPB Last administered on 01/03/19at 20:44; Admin Dose 100 MLS/HR; Start 12/31/18 at 20:00 Metoclopramide HCl (Reglan) 5 mg Q8 PO Last administered on 01/04/19at 14:23; Admin Dose 5 MG; Start 01/02/19 at 07:00 Olanzapine (Zyprexa) 2.5 mg DAILY PO Last administered on 01/04/19at 08:38; Admin Dose 2.5 MG; Start 01/03/19 at 09:00 PHYLICIA HOLCOMB NP Jan 04, 2019 15:12
--- NOTE | 2019-01-04 17:11 | CONS ---
Assessment/Plan Assessment/Plan Hospital Course (Demo Recall) 83 y/o with Hospital Course (Demo Recall) 1. End-stage renal disease on hemodialysis. 2. Gastrointestinal bleed with melena.resolved 3. Hypertension. 4. Diabetes. 5. Right hand swelling, s/p I and D on 11/17/18 6. History of falls. 7. Vascular dementia. 8. History of sepsis with VRE. 9. Dysphagia, status post G-tube. 10. History of hip fracture. 11. Thrombocytopenia. 12. Atherosclerotic heart disease. 13. Pneumonia left side 14. Anemia 15 YEAST BACTERIMIA LIKELY DUE TO UTI 16 Paroxsymal AFib now in sinus Assessment/Plan (Daily) - Hd MWF, Hd tmw - cw with permacath -avoid nephrotoxic drugs -HD MWFr -c/w epogen - Aspiration precautions DC planning Consultation Date/Type/Reason Admit Date/Time Nov 16, 2018 at 05:51 Initial Consult Date 11/16/18 Requesting Provider: DYLON WALLS MD Date/Time of Note DATE: 01/04/19 TIME: 17:10 24 HR Interval Summary Free Text/Dictation waiting for Placement Exam/Review of Systems Exam Vitals Vital Signs Date Temp Pulse Resp B/P (MAP) Pulse Ox O2 O2 Flow FiO2 Time Delivery Rate 01/04/19 21 14:49 01/04/19 98.0 60 16 109/55 100 14:14 (73) 01/04/19 Room Air 08:29 Intake and Output 01/03/19 01/03/19 01/04/19 1515:00 23:00 07:00 IntakeIntake Total 710 ml 510 ml OutputOutput Total 2400 ml BalanceBalance -2400 ml 710 ml 510 ml Exam left permactah pt awake,alert CTAB Results Result Diagram: 01/04/19 0541 01/04/19 0541 Results 24hrs Laboratory Tests Test 01/03/19 20:41 01/04/19 03:18 01/04/19 05:41 01/04/19 08:37 Bedside Glucose 182 148 147 White Blood Count 6.7 # Red Blood Count 3.36 #L Hemoglobin 8.6 L Hematocrit 27.8 L Mean Corpuscular 82.7 Volume Mean Corpuscular 25.6 L Hemoglobin Mean Corpuscular 30.9 L Hemoglobin Concent Red Cell 16.0 H Distribution Width Platelet Count 248 # Mean Platelet Volume 12.4 H Immature 0.600 H Granulocytes % Neutrophils % 58.7 Lymphocytes % 16.1 Monocytes % 14.9 H Eosinophils % 9.4 H Basophils % 0.3 Nucleated Red Blood 0.6 H Cells % Immature 0.040 H Granulocytes # Neutrophils # 4.0 Lymphocytes # 1.1 Monocytes # 1.0 H Eosinophils # 0.6 H Basophils # 0.0 Nucleated Red Blood 0.0 Cells # Sodium Level 136 Potassium Level 4.5 Chloride Level 98 Carbon Dioxide Level 27 Anion Gap 11 Blood Urea Nitrogen 50 H Creatinine 2.11 H Est Glomerular Filtrat Rate mL/min Glucose Level 132 Calcium Level 9.2 Phosphorus Level 3.5 Magnesium Level 3.0 H Test 01/04/19 14:27 Bedside Glucose 146 Medications Medication Current Medications IV Flush (NS 3 ml) 3 ml PER PROTOCOL IV ; Start 11/16/18 at 09:00 Ondansetron HCl (Zofran Inj) 4 mg Q6H PRN IV NAUSEA AND/OR VOMITING Last administered on 12/31/18at 11:45; Admin Dose 4 MG; Start 11/16/18 at 09:00 Hydralazine HCl (Apresoline) 10 mg Q4H PRN IV ELEVATED BLOOD PRESSURE Last administered on 12/22/18at 19:40; Admin Dose 10 MG; Start 11/17/18 at 10:30 Acetaminophen/ Hydrocodone Bitart ([place] (5/325)) 1 tab Q3H PRN PO MODERATE PAIN LEVEL 4-6 Last administered on 12/26/18at 22:10; Admin Dose 1 TAB; Start 11/17/18 at 14:30 Albumin Human 50 ml @ 100 mls/hr WITH DIALYSIS PRN IV SBP<90 Last administered on 12/31/18at 15:54; Admin Dose 100 MLS/HR; Start 11/18/18 at 14:30 Morphine Sulfate (morphine) 6 mg Q4H PRN PO SEVERE PAIN LEVEL 7-10 Last adminis tered on 12/30/18at 09:15; Admin Dose 6 MG; Start 11/18/18 at 23:00 Docusate Sodium (Colace Liquid Cup) 100 mg DAILY GTB Last administered on 01/04/19at 08:38; Admin Dose 100 MG; Start 11/19/18 at 09:30 Multivit/Ca Carb/ B Cmplx/FA/Prenat (Kianna-Roque) 1 tab DAILY GTB Last administered on 01/04/19 08:38; Admin Dose 1 TAB; Start 11/24/18 at 09:00 Lansoprazole (Prevacid) 30 mg DAILY GTB Last administered on 01/04/19 08:38; Admin Dose 30 MG; Start 11/26/18 at 09:00 Acetaminophen (Tylenol Supp) 650 mg Q4H PRN [place] MILD PAIN(1-3) OR TEMP>38C Last administered on 11/26/18 08:32; Admin Dose 650 MG; Start 11/26/18 at 08:30 Epoetin Michael (Epogen (Esrd)) 4,000 units MoWeFr@17 SC Last administered on 01/03/19 18:23; Admin Dose 4,000 UNITS; Start 12/06/18 at 17:00 Hydralazine HCl (Apresoline) 50 mg Q8 PO Last administered on 01/04/19 05:48; Admin Dose 50 MG; Start 12/07/18 at 22:00 Metoprolol Tartrate (Lopressor) 100 mg BID GTB Last administered on 01/04/19 08:39; Admin Dose 100 MG; Start 12/13/18 at 21:00 Aspirin (Halfprin) 81 mg DAILY PO Last administered on 01/04/19 08:38; Admin Dose 81 MG; Start 12/13/18 at 19:30 Senna (Senokot) 1 tab BID PO Last administered on 01/04/19 08:38; Admin Dose 1 TAB; Start 12/17/18 at 21:00 Acetaminophen (Tylenol Tab) 650 mg Q6H PRN PO PAIN LEVEL 1-3 OR FEVER Last administered on 12/21/18 05:01; Admin Dose 650 MG; Start 12/17/18 at 15:00 Albuterol/ Ipratropium (Duoneb) 3 ml Q6H RESP THERAPY PRN HHN sob Last administered on 12/19/18 03:51; Admin Dose 3 ML; Start 12/17/18 at 09:00 Docusate Sodium (Colace) 100 mg Q12H PRN PO CONSTIPATION Last administered on 12/21/18 05:01; Admin Dose 100 MG; Start 12/17/18 at 21:00 Ferrous Sulfate (Feosol Liquid Cup) 300 mg BID GTB Last administered on 01/04/19 08:38; Admin Dose 300 MG; Start 12/17/18 at 21:00 Guaifenesin/ Dextromethorphan (Robitussin Dm Liquid Cup) 5 ml Q4H PRN PO cough Last administered on 12/24/18 21:16; Admin Dose 5 ML; Start 12/17/18 at 18:00 Linagliptin (Tradjenta) 5 mg DAILY GTB Last administered on 01/04/19 08:38; Admin Dose 5 MG; Start 12/17/18 at 09:00 Folic Acid (Folic Acid) 1 mg DAILY GTB Last administered on 01/04/19 08:38; Admin Dose 1 MG; Start 12/18/18 at 09:00 Metoclopramide HCl (Reglan) 5 mg Q8 PRN IV VOMITTING; Start 12/20/18 at 10:00 IV Flush (NS 10 ml) 10 ml AFTER DIALYSIS CATHETER ; Start 12/22/18 at 10:00 Voriconazole (Vfend) 200 mg BID PO Last administered on 01/04/19 08:38; Admin Dose 200 MG; Start 12/22/18 at 11:00 Magnesium Hydroxide (Milk Of Mag) 30 ml DAILY PRN PO CONSTIPATION; Start 12/22/18 at 17:00 Sodium Chloride (NS) -To prime the dialy... DIRECTED FOR HD PRN IV HD; Start 12/23/18 at 16:00 Amlodipine Besylate (Norvasc) 5 mg DAILY GTB Last administered on 01/04/19 08:39; Admin Dose 5 MG; Start 12/25/18 at 15:30 Polyethylene Glycol (Miralax) 17 gm DAILY GTB Last administered on 01/04/19 08:38; Admin Dose 17 GM; Start 12/27/18 at 09:00 Insulin Glargine (Lantus) 4 units DAILY@2000 SC Last administered on 01/03/19 20:42; Admin Dose 4 UNITS; Start 12/28/18 at 20:00 Miscellaneous Information 1 ea NOTE XX ; Start 12/28/18 at 19:00 Glucose (Glutose) 15 gm Q15M PRN PO DECREASED GLUCOSE; Start 12/28/18 at 19:00 Glucose (Glutose) 22.5 gm Q15M PRN PO DECREASED GLUCOSE; Start 12/28/18 at 19:00 Dextrose (D50w Syringe) 25 ml Q15M PRN IV DECREASED GLUCOSE; Start 12/28/18 at 19:00 Dextrose (D50w Syringe) 50 ml Q15M PRN IV DECREASED GLUCOSE; Start 12/28/18 at 19:00 Glucagon (Glucagen) 1 mg Q15M PRN IM DECREASED GLUCOSE; Start 12/28/18 at 19:00 Glucose (Glutose) 15 gm Q15M PRN BUCCAL DECREASED GLUCOSE; Start 12/28/18 at 19:00 Sevelamer Carbonate (Renvela) 1.6 gm TID NGT Last administered on 01/04/19at 14:23; Admin Dose 1.6 GM; Start 12/31/18 at 13:00 Meropenem/Sodium Chloride 50 ml @ 100 mls/hr Q24H IVPB Last administered on 01/03/19at 20:44; Admin Dose 100 MLS/HR; Start 12/31/18 at 20:00 Metoclopramide HCl (Reglan) 5 mg Q8 PO Last administered on 01/04/19at 14:23; Admin Dose 5 MG; Start 01/02/19 at 07:00 Olanzapine (Zyprexa) 2.5 mg DAILY PO Last administered on 01/04/19at 08:38; Admin Dose 2.5 MG; Start 01/03/19 at 09:00 JOSE RAUL ANDREWS MD Jan 04, 2019 17:11
[2019-01-04 20:00] VITALS: BP 98/40; PULSE 63; RESP 17
[2019-01-04] MEDS: MEROPENEM 500MG/50 ML (PMX) 50 ML IVPB SCH (20:31)
[2019-01-04] MEDS: INSULIN GLARGINE [LANTus] (100 UNITS/ML) SYG SC SCH (20:33)
[2019-01-05] VITALS (20 sets, daily range): BP systolic 86–153; BP diastolic 41–72; PULSE 60–88; RESP 16–18
[2019-01-05] MEDS: METOCLOPRAMIDE 5 MG TAB PO SCH ×3 (05:40→21:18)
[2019-01-05] MEDS: METOPROLOL 50 MG TAB GTB SCH ×2 (08:44→21:18)
[2019-01-05] MEDS: AMLODIPINE 5 MG TAB GTB SCH (08:44)
[2019-01-05] MEDS: DOCUSATE SODIUM 10 MG/ML (10ML CUP) GTB SCH (08:57)
[2019-01-05] MEDS: SEVELAMER CARBONATE 0.8 GM PKT NGT SCH ×3 (08:57→21:22)
[2019-01-05] MEDS: SENNA TAB PO SCH ×2 (08:57→21:17)
[2019-01-05] MEDS: VORICONAZOLE 200 MG TAB PO SCH ×2 (08:57→21:17)
[2019-01-05] MEDS: OLANZAPINE 2.5 MG TAB PO SCH (08:57)
[2019-01-05] MEDS: FERROUS SULFATE 60 MG/ML 5ML CUP GTB SCH ×2 (08:57→21:17)
[2019-01-05] MEDS: MULTIVIT/CA CARB/B CMPLX/FA TAB GTB SCH (08:57)
[2019-01-05] MEDS: LANSOPRAZOLE 30 MG CAP GTB SCH (08:57)
[2019-01-05] MEDS: POLYETHYLENE GLYCOL 17 GM PACKET GTB SCH (08:58)
[2019-01-05] MEDS: LINAGLIPTIN 5 MG TABLET GTB SCH (08:58)
[2019-01-05] MEDS: FOLIC ACID 1 MG TAB GTB SCH (08:58)
[2019-01-05] MEDS: ASPIRIN (EC) 81 MG TAB PO SCH (08:58)
[2019-01-05] MEDS: ALBUMIN HUMAN 25% 50 ML IV PRN (10:17)
--- NOTE | 2019-01-05 10:26 | CONS ---
Consult Date/Type/Reason Admit Date/Time Nov 16, 2018 at 05:51 Initial Consult Date 11/16/18 Type of Consultation: cv Requesting Provider: DYLON WALLS MD Date/Time of Note DATE: 01/05/19 TIME: 10:26 Subjective Cardiology follow up note Sl DW/ Staff and telemetry was reviewed. Patient is off tele now. PT IS ON HD NOW pt continues to be confused but calm and cooperative now no report of any chest pain or pressure or palpitations but pt is a very poor historian Events noted. 12/13/18: Patient went into atrial fibrillation rapid ventricular response during hemodialysis . Patient has been transferred to telemetry and converted back to sinus rhythm remains in sinus rhythm s/p I/D 11/17 EGD 11.18.18 O: General: Elderly frail female in no acute distress HEENT: NC/AT. Eyes are closed NECK: NO JVD. no stridor. CV: RRR. systolic murmur; no gallop or rubs. PULM: no wheezing or rhonchi. GI: SOFT, NT, ND, no rebound or guarding neuro: AWAKE and alert Psych: calm now rectal: deferred Objective Vitals Vital Signs Date Temp Pulse Resp B/P (MAP) Pulse Ox O2 O2 Flow FiO2 Time Delivery Rate 01/05/19 73 10:20 01/05/19 16 100/41 99 Room Air 08:35 (60) 01/05/19 97.3 08:00 01/04/19 21 14:49 Intake and Output 01/04/19 01/04/19 01/05/19 1515:00 23:00 07:00 IntakeIntake Total 610 ml 560 ml OutputOutput Total 1 ml BalanceBalance -1 ml 610 ml 560 ml Results/Medications Result Diagram: 01/04/19 0541 01/04/19 0541 Results 24 hrs Laboratory Tests Test 01/04/19 14:27 01/04/19 20:32 01/05/19 03:12 01/05/19 08:55 Bedside Glucose 146 145 114 138 Home Meds Reported Medications Sennosides* (Senna Lax*) 8.6 Mg Tablet, 1 TAB PO BID, TAB 11/16/18 Sevelamer Carbonate* (Renvela*) 0.8 Gm Powd.pack, 0.8 GM PO WITH MEALS, PACKET 11/16/18 Lansoprazole* (Lansoprazole*) 30 Mg Capsule.dr, 30 MG PO QAM, CAP 11/16/18 Hydralazine Hcl* (Hydralazine Hcl*) 25 Mg Tab, 25 MG PO Q8, #90 TAB 11/16/18 Ferrous Sulfate* (Ferrous Sulfate*) 325 Mg Tabec, 325 MG PO BID for anemia, TAB 11/16/18 Valproate Sodium (Valproic Acid) 250 Mg/5 Ml Solution, 250 MG PO Q8, ML 11/16/18 Insulin Aspart* (Novolog Insulin Pen*) 100 Unit/Ml Soln, 0 SC .SLIDING SCALE AC, EA IF BS 160-200=2 UNITS,201-250=4 UNITS,251-300=8 UNITS,301-350=12 UNITS;351-400=16 UNITS THEN CALL MD. 10/16/18 Ondansetron Hcl* (Zofran*) 4 Mg Tab, 4 MG GTB Q4H PRN for NAUSEA AND OR VOMITING, TAB 10/16/18 Linagliptin (TRADJENTA) 5 Mg Tablet, 5 MG GTB DAILY, TAB 10/16/18 Quetiapine Fumarate* (Seroquel*) 25 Mg Tablet, 25 MG GTB BID, #60 TAB 10/16/18 [Nephro-Roque] No Conflict Check, 0.8 MG GTB DAILY 10/16/18 Polyethylene Glycol* (Miralax*) 17 Gm Powd.pack, 17 GM GTB Q24H, #30 PACKET 10/16/18 Metoprolol Tartrate* (Lopressor*) 50 Mg Tab, 50 MG GTB DAILY, #60 TAB Q MON,WED,FRI,SUN,HOLD FOR SBP<110 OR RI<60 10/16/18 Metoprolol Tartrate* (Lopressor*) 50 Mg Tab, 50 MG GTB BID, #60 TAB QTUE,ANDREW,SAT,HOLD FOR SBP<110 OR RI<60 10/16/18 Linaclotide (LINZESS) 145 Mcg Capsule, 145 MCG GTB DAILY, #30 CAP 10/16/18 Ipratropium-Albuterol (Ipratropium-Albuterol) 0.5-3 Mg/3 Ml Ampul.neb, 3 ML INHALATION Q6, #30 VIAL FOR 14 DAYS,STOP DATE 10/17/18 10/16/18 Hydralazine Hcl* (Hydralazine Hcl*) 25 Mg Tab, 25 MG GTB DAILY, #60 TAB Q TUE,ANDREW,SAT,HOLD IF SBP<110 OR RI<60 10/16/18 Folic Acid* (Folic Acid*) 1 Mg Tablet, 1 MG GTB DAILY, TAB 10/16/18 Docusate Sodium* (Colace*) 100 Mg Capsule, 100 MG GTB DAILY, #30 CAP 10/16/18 Lorazepam* (Lorazepam*) 1 Mg Tablet, 1 MG GTB HS PRN for ANXIETY, #30 TAB Q TUE,ANDREW,SAT 10/16/18 Amlodipine Besylate* (Norvasc*) 5 Mg Tablet, 5 MG GTB BID, TAB TAKE Q TUE,ANDREW,SAT FOR HTN, HOLD FOR SBP<110 OR RI<60 10/16/18 Acetaminophen* (Acetaminophen*) 650 Mg Tablet, 650 MG GTB Q6H PRN for PAIN LEVEL -08/18, #30 TAB 10/16/18 Medications Current Medications IV Flush (NS 3 ml) 3 ml PER PROTOCOL IV ; Start 11/16/18 at 09:00 Ondansetron HCl (Zofran Inj) 4 mg Q6H PRN IV NAUSEA AND/OR VOMITING Last administered on 12/31/18at 11:45; Admin Dose 4 MG; Start 11/16/18 at 09:00 Hydralazine HCl (Apresoline) 10 mg Q4H PRN IV ELEVATED BLOOD PRESSURE Last administered on 12/22/18 19:40; Admin Dose 10 MG; Start 11/17/18 at 10:30 Acetaminophen/ Hydrocodone Bitart ([place] (5/325)) 1 tab Q3H PRN PO MODERATE PAIN LEVEL 4-6 Last administered on 12/26/18 22:10; Admin Dose 1 TAB; Start 11/17/18 at 14:30 Albumin Human 50 ml @ 100 mls/hr WITH DIALYSIS PRN IV SBP<90 Last administered on 01/05/19 10:17; Admin Dose 100 MLS/HR; Start 11/18/18 at 14:30 Morphine Sulfate (morphine) 6 mg Q4H PRN PO SEVERE PAIN LEVEL 7-10 Last administered on 12/30/18 09:15; Admin Dose 6 MG; Start 11/18/18 at 23:00 Docusate Sodium (Colace Liquid Cup) 100 mg DAILY GTB Last administered on 01/05/19 08:57; Admin Dose 100 MG; Start 11/19/18 at 09:30 Multivit/Ca Carb/ B Cmplx/FA/Prenat (Kianna-Roque) 1 tab DAILY GTB Last administered on 01/05/19 08:57; Admin Dose 1 TAB; Start 11/24/18 at 09:00 Lansoprazole (Prevacid) 30 mg DAILY GTB Last administered on 01/05/19 08:57; Admin Dose 30 MG; Start 11/26/18 at 09:00 Acetaminophen (Tylenol Supp) 650 mg Q4H PRN [place] MILD PAIN(1-3) OR TEMP>38C Last administered on 11/26/18 08:32; Admin Dose 650 MG; Start 11/26/18 at 08:30 Epoetin Michael (Epogen (Esrd)) 4,000 units MoWeFr@17 SC Last administered on 01/03/19 18:23; Admin Dose 4,000 UNITS; Start 12/06/18 at 17:00 Hydralazine HCl (Apresoline) 50 mg Q8 PO Last administered on 01/04/19 05:48; Admin Dose 50 MG; Start 12/07/18 at 22:00 Metoprolol Tartrate (Lopressor) 100 mg BID GTB Last administered on 01/04/19 08:39; Admin Dose 100 MG; Start 12/13/18 at 21:00 Aspirin (Halfprin) 81 mg DAILY PO Last administered on 01/05/19 08:58; Admin Dose 81 MG; Start 12/13/18 at 19:30 Senna (Senokot) 1 tab BID PO Last administered on 01/05/19 08:57; Admin Dose 1 TAB; Start 12/17/18 at 21:00 Acetaminophen (Tylenol Tab) 650 mg Q6H PRN PO PAIN LEVEL 1-3 OR FEVER Last administered on 12/21/18 05:01; Admin Dose 650 MG; Start 12/17/18 at 15:00 Albuterol/ Ipratropium (Duoneb) 3 ml Q6H RESP THERAPY PRN HHN sob Last administered on 12/19/18 03:51; Admin Dose 3 ML; Start 12/17/18 at 09:00 Docusate Sodium (Colace) 100 mg Q12H PRN PO CONSTIPATION Last administered on 12/21/18 05:01; Admin Dose 100 MG; Start 12/17/18 at 21:00 Ferrous Sulfate (Feosol Liquid Cup) 300 mg BID GTB Last administered on 01/05/19 08:57; Admin Dose 300 MG; Start 12/17/18 at 21:00 Guaifenesin/ Dextromethorphan (Robitussin Dm Liquid Cup) 5 ml Q4H PRN PO cough Last administered on 12/24/18 21:16; Admin Dose 5 ML; Start 12/17/18 at 18:00 Linagliptin (Tradjenta) 5 mg DAILY GTB Last administered on 01/05/19 08:58; Admin Dose 5 MG; Start 12/17/18 at 09:00 Folic Acid (Folic Acid) 1 mg DAILY GTB Last administered on 01/05/19 08:58; Admin Dose 1 MG; Start 12/18/18 at 09:00 Metoclopramide HCl (Reglan) 5 mg Q8 PRN IV VOMITTING; Start 12/20/18 at 10:00 IV Flush (NS 10 ml) 10 ml AFTER DIALYSIS CATHETER ; Start 12/22/18 at 10:00 Voriconazole (Vfend) 200 mg BID PO Last administered on 01/05/19 08:57; Admin Dose 200 MG; Start 12/22/18 at 11:00 Magnesium Hydroxide (Milk Of Mag) 30 ml DAILY PRN PO CONSTIPATION; Start 12/22/18 at 17:00 Sodium Chloride (NS) -To prime the dialy... DIRECTED FOR HD PRN IV HD; Start 12/23/18 at 16:00 Amlodipine Besylate (Norvasc) 5 mg DAILY GTB Last administered on 01/04/19 08:39; Admin Dose 5 MG; Start 12/25/18 at 15:30 Polyethylene Glycol (Miralax) 17 gm DAILY GTB Last administered on 01/05/19 08:58; Admin Dose 17 GM; Start 12/27/18 at 09:00 Insulin Glargine (Lantus) 4 units DAILY@2000 SC Last administered on 2/26/19at 20:33; Admin Dose 4 UNITS; Start 12/28/18 at 20:00 Miscellaneous Information 1 ea NOTE XX ; Start 12/28/18 at 19:00 Glucose (Glutose) 15 gm Q15M PRN PO DECREASED GLUCOSE; Start 12/28/18 at 19:00 Glucose (Glutose) 22.5 gm Q15M PRN PO DECREASED GLUCOSE; Start 12/28/18 at 19:00 Dextrose (D50w Syringe) 25 ml Q15M PRN IV DECREASED GLUCOSE; Start 12/28/18 at 19:00 Dextrose (D50w Syringe) 50 ml Q15M PRN IV DECREASED GLUCOSE; Start 12/28/18 at 19:00 Glucagon (Glucagen) 1 mg Q15M PRN IM DECREASED GLUCOSE; Start 12/28/18 at 19:00 Glucose (Glutose) 15 gm Q15M PRN BUCCAL DECREASED GLUCOSE; Start 12/28/18 at 19:00 Sevelamer Carbonate (Renvela) 1.6 gm TID NGT Last administered on 01/05/19at 08:57; Admin Dose 1.6 GM; Start 12/31/18 at 13:00 Meropenem/Sodium Chloride 50 ml @ 100 mls/hr Q24H IVPB Last administered on 01/04/19at 20:31; Admin Dose 100 MLS/HR; Start 12/31/18 at 20:00 Metoclopramide HCl (Reglan) 5 mg Q8 PO Last administered on 01/05/19at 05:40; Admin Dose 5 MG; Start 01/02/19 at 07:00 Olanzapine (Zyprexa) 2.5 mg DAILY PO Last administered on 01/05/19 08:57; Admin Dose 2.5 MG; Start 01/03/19 at 09:00 Assessment/Plan Hospital Course (Demo Recall) P-atrial fibrillation rapid ventricular response: Currently back in sinus rhythm fungemia /fungal urinary tract infection Status post right hand hematoma: Status post I&D Renal failure on dialysis Hypertension Dementia Anemia Possible GI bleed: Status post EGD AI Recommendations: pt is not on full anticoagulation due to the fall risk as well as anemia cont beta-farrah Dialysis as per renal team Neuro workup and treatment as per internal medicine Antibiotic as per ID and internal medicine asa for now and monitor Thank you for his referral. We will continue to follow along with you as needed basis CHRISTEN ESCOBEDO MD [facility] CHRISTEN ESCOBEDO MD Jan 05, 2019 10:26
--- NOTE | 2019-01-05 11:27 | CONS ---
Assessment/Plan Assessment/Plan Hospital Course (Demo Recall) No events, looks comfortable Antimicrobials: Meropenem, day #6 Blood culture repeated on November 29 grew Dominique glabrata blood cultures since December 01 that were drawn from permacath negative blood culture on December 03 negative, urine culture growing C glabrata Indwelling: Left chest permacath, PEG Physical examination: Chronically ill-appearing elderly woman who is awake, confused, in no distress. Head atraumatic normocephalic. Neck is supple. Chest rise symmetrical breath sounds diminished bases. Heart: S1-S2. Abdomen soft bowel sounds present, right upper extremity Armani wrapped Assessment: 1. Recurrent aspiration event, patient is on meropenem 2. Status post UTI==> T glabrata 3. S/p Fungemia secondary to urinary tract infection 4. Right hand hematoma, status post I&D 11/17/18 5. Status post VRE bacteremia/new Pcath 6. End-stage renal disease, hemodialysis dependent 7. Failure to thrive 8. Diabetes 9. Anemia 10. P Afib Plan: Abx for 7 days total, last dose tomorrow, continue aspiration precautions Consultation Date/Type/Reason Admit Date/Time Nov 16, 2018 at 05:51 Initial Consult Date 11/16/18 Type of Consult id Requesting Provider: DYLON WALLS MD Date/Time of Note DATE: 01/05/19 TIME: 11:26 Exam/Review of Systems Exam Vitals Vital Signs Date Temp Pulse Resp B/P (MAP) Pulse Ox O2 O2 Flow FiO2 Time Delivery Rate 01/05/19 80 11:05 01/05/19 16 100/41 99 Room Air 08:35 (60) 01/05/19 97.3 08:00 01/04/19 21 14:49 Intake and Output 01/04/19 01/04/19 01/05/19 1515:00 23:00 07:00 IntakeIntake Total 610 ml 560 ml OutputOutput Total 1 ml BalanceBalance -1 ml 610 ml 560 ml Results Result Diagram: 01/04/19 0541 01/04/19 0541 Results 24hrs Laboratory Tests Test 01/04/19 14:27 01/04/19 20:32 01/05/19 03:12 01/05/19 08:55 Bedside Glucose 146 145 114 138 Medications Medication Current Medications IV Flush (NS 3 ml) 3 ml PER PROTOCOL IV ; Start 11/16/18 at 09:00 Ondansetron HCl (Zofran Inj) 4 mg Q6H PRN IV NAUSEA AND/OR VOMITING Last administered on 12/31/18 11:45; Admin Dose 4 MG; Start 11/16/18 at 09:00 Hydralazine HCl (Apresoline) 10 mg Q4H PRN IV ELEVATED BLOOD PRESSURE Last administered on 12/22/18 19:40; Admin Dose 10 MG; Start 11/17/18 at 10:30 Acetaminophen/ Hydrocodone Bitart ([place] (5/325)) 1 tab Q3H PRN PO MODERATE PAIN LEVEL 4-6 Last administered on 12/26/18 22:10; Admin Dose 1 TAB; Start 11/17/18 at 14:30 Albumin Human 50 ml @ 100 mls/hr WITH DIALYSIS PRN IV SBP<90 Last administered on 01/05/19 10:17; Admin Dose 100 MLS/HR; Start 11/18/18 at 14:30 Morphine Sulfate (morphine) 6 mg Q4H PRN PO SEVERE PAIN LEVEL 7-10 Last administered on 12/30/18 09:15; Admin Dose 6 MG; Start 11/18/18 at 23:00 Docusate Sodium (Colace Liquid Cup) 100 mg DAILY GTB Last administered on 01/05/19 08:57; Admin Dose 100 MG; Start 11/19/18 at 09:30 Multivit/Ca Carb/ B Cmplx/FA/Prenat (Kianna-Roque) 1 tab DAILY GTB Last administered on 01/05/19 08:57; Admin Dose 1 TAB; Start 11/24/18 at 09:00 Lansoprazole (Prevacid) 30 mg DAILY GTB Last administered on 01/05/19 08:57; Admin Dose 30 MG; Start 11/26/18 at 09:00 Acetaminophen (Tylenol Supp) 650 mg Q4H PRN [place] MILD PAIN(1-3) OR TEMP>38C Last administered on 11/26/18 08:32; Admin Dose 650 MG; Start 11/26/18 at 08:30 Epoetin Michael (Epogen (Esrd)) 4,000 units MoWeFr@17 SC Last administered on 01/03/19 18:23; Admin Dose 4,000 UNITS; Start 12/06/18 at 17:00 Hydralazine HCl (Apresoline) 50 mg Q8 PO Last administered on 01/04/19 05:48; Admin Dose 50 MG; Start 12/07/18 at 22:00 Metoprolol Tartrate (Lopressor) 100 mg BID GTB Last administered on 01/04/19 08:39; Admin Dose 100 MG; Start 12/13/18 at 21:00 Aspirin (Halfprin) 81 mg DAILY PO Last administered on 01/05/19 08:58; Admin Dose 81 MG; Start 12/13/18 at 19:30 Senna (Senokot) 1 tab BID PO Last administered on 01/05/19 08:57; Admin Dose 1 TAB; Start 12/17/18 at 21:00 Acetaminophen (Tylenol Tab) 650 mg Q6H PRN PO PAIN LEVEL 1-3 OR FEVER Last administered on 12/21/18 05:01; Admin Dose 650 MG; Start 12/17/18 at 15:00 Albuterol/ Ipratropium (Duoneb) 3 ml Q6H RESP THERAPY PRN HHN sob Last administered on 12/19/18 03:51; Admin Dose 3 ML; Start 12/17/18 at 09:00 Docusate Sodium (Colace) 100 mg Q12H PRN PO CONSTIPATION Last administered on 12/21/18 05:01; Admin Dose 100 MG; Start 12/17/18 at 21:00 Ferrous Sulfate (Feosol Liquid Cup) 300 mg BID GTB Last administered on 01/05/19 08:57; Admin Dose 300 MG; Start 12/17/18 at 21:00 Guaifenesin/ Dextromethorphan (Robitussin Dm Liquid Cup) 5 ml Q4H PRN PO cough Last administered on 12/24/18 21:16; Admin Dose 5 ML; Start 12/17/18 at 18:00 Linagliptin (Tradjenta) 5 mg DAILY GTB Last administered on 01/05/19 08:58; Admin Dose 5 MG; Start 12/17/18 at 09:00 Folic Acid (Folic Acid) 1 mg DAILY GTB Last administered on 01/05/19 08:58; Admin Dose 1 MG; Start 12/18/18 at 09:00 Metoclopramide HCl (Reglan) 5 mg Q8 PRN IV VOMITTING; Start 12/20/18 at 10:00 IV Flush (NS 10 ml) 10 ml AFTER DIALYSIS CATHETER ; Start 12/22/18 at 10:00 Voriconazole (Vfend) 200 mg BID PO Last administered on 01/05/19at 08:57; Admin Dose 200 MG; Start 12/22/18 at 11:00 Magnesium Hydroxide (Milk Of Mag) 30 ml DAILY PRN PO CONSTIPATION; Start 12/22/18 at 17:00 Sodium Chloride (NS) -To prime the dialy... DIRECTED FOR HD PRN IV HD; Start 12/23/18 at 16:00 Amlodipine Besylate (Norvasc) 5 mg DAILY GTB Last administered on 01/04/19at 08:39; Admin Dose 5 MG; Start 12/25/18 at 15:30 Polyethylene Glycol (Miralax) 17 gm DAILY GTB Last administered on 01/05/19at 08:58; Admin Dose 17 GM; Start 12/27/18 at 09:00 Insulin Glargine (Lantus) 4 units DAILY@2000 SC Last administered on 01/04/19at 20:33; Admin Dose 4 UNITS; Start 12/28/18 at 20:00 Miscellaneous Information 1 ea NOTE XX ; Start 12/28/18 at 19:00 Glucose (Glutose) 15 gm Q15M PRN PO DECREASED GLUCOSE; Start 12/28/18 at 19:00 Glucose (Glutose) 22.5 gm Q15M PRN PO DECREASED GLUCOSE; Start 12/28/18 at 19:00 Dextrose (D50w Syringe) 25 ml Q15M PRN IV DECREASED GLUCOSE; Start 12/28/18 at 19:00 Dextrose (D50w Syringe) 50 ml Q15M PRN IV DECREASED GLUCOSE; Start 12/28/18 at 19:00 Glucagon (Glucagen) 1 mg Q15M PRN IM DECREASED GLUCOSE; Start 12/28/18 at 19:00 Glucose (Glutose) 15 gm Q15M PRN BUCCAL DECREASED GLUCOSE; Start 12/28/18 at 19:00 Sevelamer Carbonate (Renvela) 1.6 gm TID NGT Last administered on 01/05/19at 08:57; Admin Dose 1.6 GM; Start 12/31/18 at 13:00 Meropenem/Sodium Chloride 50 ml @ 100 mls/hr Q24H IVPB Last administered on 01/04/19at 20:31; Admin Dose 100 MLS/HR; Start 12/31/18 at 20:00 Metoclopramide HCl (Reglan) 5 mg Q8 PO Last administered on 01/05/19at 05:40; Admin Dose 5 MG; Start 01/02/19 at 07:00 Olanzapine (Zyprexa) 2.5 mg DAILY PO Last administered on 01/05/19at 08:57; Admin Dose 2.5 MG; Start 01/03/19 at 09:00 PHYLICIA HOLCOMB NP Jan 05, 2019 11:27
--- NOTE | 2019-01-05 14:20 | CONS ---
Assessment/Plan Assessment/Plan Hospital Course (Demo Recall) 83 y/o with Hospital Course (Demo Recall) 1. End-stage renal disease on hemodialysis. 2. Gastrointestinal bleed with melena.resolved 3. Hypertension. 4. Diabetes. 5. Right hand swelling, s/p I and D on 11/17/18 6. History of falls. 7. Vascular dementia. 8. History of sepsis with VRE. 9. Dysphagia, status post G-tube. 10. History of hip fracture. 11. Thrombocytopenia. 12. Atherosclerotic heart disease. 13. Pneumonia left side 14. Anemia 15 YEAST BACTERIMIA LIKELY DUE TO UTI 16 Paroxsymal AFib now in sinus Assessment/Plan (Daily) - Hd MWF, Hd today - cw with permacath -avoid nephrotoxic drugs -HD MWFr -c/w epogen - Aspiration precautions -? hold off sedatives/pain meds DC planning Consultation Date/Type/Reason Admit Date/Time Nov 16, 2018 at 05:51 Initial Consult Date 11/16/18 Requesting Provider: DYLON WALLS MD Date/Time of Note DATE: 01/05/19 TIME: 14:18 24 HR Interval Summary Free Text/Dictation Little sleepy. Exam/Review of Systems Exam Vitals Vital Signs Date Temp Pulse Resp B/P (MAP) Pulse Ox O2 O2 Flow FiO2 Time Delivery Rate 01/05/19 75 11:40 01/05/19 16 127/57 100 Room Air 11:35 (80) 01/05/19 97.3 08:00 01/04/19 21 14:49 Intake and Output 01/04/19 01/04/19 01/05/19 1515:00 23:00 07:00 IntakeIntake Total 610 ml 560 ml OutputOutput Total 1 ml BalanceBalance -1 ml 610 ml 560 ml Exam left permactah little letahrgic CTAB Results Result Diagram: 01/04/19 0541 01/04/19 0541 Results 24hrs Laboratory Tests Test 01/04/19 14:27 01/04/19 20:32 01/05/19 03:12 01/05/19 08:55 Bedside Glucose 146 145 114 138 Medications Medication Current Medications IV Flush (NS 3 ml) 3 ml PER PROTOCOL IV ; Start 11/16/18 at 09:00 Ondansetron HCl (Zofran Inj) 4 mg Q6H PRN IV NAUSEA AND/OR VOMITING Last adm inistered on 12/31/18 11:45; Admin Dose 4 MG; Start 11/16/18 at 09:00 Hydralazine HCl (Apresoline) 10 mg Q4H PRN IV ELEVATED BLOOD PRESSURE Last administered on 12/22/18 19:40; Admin Dose 10 MG; Start 11/17/18 at 10:30 Acetaminophen/ Hydrocodone Bitart ([place] (5/325)) 1 tab Q3H PRN PO MODERATE KIRAN N LEVEL 4-6 Last administered on 12/26/18 22:10; Admin Dose 1 TAB; Start 11/17/18 at 14:30 Albumin Human 50 ml @ 100 mls/hr WITH DIALYSIS PRN IV SBP<90 Last administered on 01/05/19 10:17; Admin Dose 100 MLS/HR; Start 11/18/18 at 14:30 Morphine Sulfate (morphine) 6 mg Q4H PRN PO SEVERE PAIN LEVEL 7-10 Last administered on 12/30/18 09:15; Admin Dose 6 MG; Start 11/18/18 at 23:00 Docusate Sodium (Colace Liquid Cup) 100 mg DAILY GTB Last administered on 01/05/19 08:57; Admin Dose 100 MG; Start 11/19/18 at 09:30 Multivit/Ca Carb/ B Cmplx/FA/Prenat (Kianna-Roque) 1 tab DAILY GTB Last administe red on 01/05/19 08:57; Admin Dose 1 TAB; Start 11/24/18 at 09:00 Lansoprazole (Prevacid) 30 mg DAILY GTB Last administered on 01/05/19 08:57; Admin Dose 30 MG; Start 11/26/18 at 09:00 Acetaminophen (Tylenol Supp) 650 mg Q4H PRN [place] MILD PAIN(1-3) OR TEMP>38C Last administered on 11/26/18 08:32; Admin Dose 650 MG; Start 11/26/18 at 08:30 Epoetin Michael (Epogen (Esrd)) 4,000 units MoWeFr@17 SC Last administered on 01/03/19 18:23; Admin Dose 4,000 UNITS; Start 12/06/18 at 17:00 Hydralazine HCl (Apresoline) 50 mg Q8 PO Last administered on 01/04/19 05:48; Admin Dose 50 MG; Start 12/07/18 at 22:00 Metoprolol Tartrate (Lopressor) 100 mg BID GTB Last administered on 01/04/19 08:39; Admin Dose 100 MG; Start 12/13/18 at 21:00 Aspirin (Halfprin) 81 mg DAILY PO Last administered on 01/05/19 08:58; Admin Dose 81 MG; Start 12/13/18 at 19:30 Senna (Senokot) 1 tab BID PO Last administered on 01/05/19 08:57; Admin Dose 1 TAB; Start 12/17/18 at 21:00 Acetaminophen (Tylenol Tab) 650 mg Q6H PRN PO PAIN LEVEL 1-3 OR FEVER Last administered on 12/21/18 05:01; Admin Dose 650 MG; Start 12/17/18 at 15:00 Albuterol/ Ipratropium (Duoneb) 3 ml Q6H RESP THERAPY PRN HHN sob Last administered on 12/19/18 03:51; Admin Dose 3 ML; Start 12/17/18 at 09:00 Docusate Sodium (Colace) 100 mg Q12H PRN PO CONSTIPATION Last administered on 12/21/18 05:01; Admin Dose 100 MG; Start 12/17/18 at 21:00 Ferrous Sulfate (Feosol Liquid Cup) 300 mg BID GTB Last administered on 01/05/19 08:57; Admin Dose 300 MG; Start 12/17/18 at 21:00 Guaifenesin/ Dextromethorphan (Robitussin Dm Liquid Cup) 5 ml Q4H PRN PO cough Last administered on 12/24/18 21:16; Admin Dose 5 ML; Start 12/17/18 at 18:00 Linagliptin (Tradjenta) 5 mg DAILY GTB Last administered on 01/05/19 08:58; Admin Dose 5 MG; Start 12/17/18 at 09:00 Folic Acid (Folic Acid) 1 mg DAILY GTB Last administered on 01/05/19 08:58; Admin Dose 1 MG; Start 12/18/18 at 09:00 Metoclopramide HCl (Reglan) 5 mg Q8 PRN IV VOMITTING; Start 12/20/18 at 10:00 IV Flush (NS 10 ml) 10 ml AFTER DIALYSIS CATHETER ; Start 12/22/18 at 10:00 Voriconazole (Vfend) 200 mg BID PO Last administered on 01/05/19 08:57; Admin Dose 200 MG; Start 12/22/18 at 11:00 Magnesium Hydroxide (Milk Of Mag) 30 ml DAILY PRN PO CONSTIPATION; Start 12/22/18 at 17:00 Sodium Chloride (NS) -To prime the dialy... DIRECTED FOR HD PRN IV HD; Start 12/23/18 at 16:00 Amlodipine Besylate (Norvasc) 5 mg DAILY GTB Last administered on 01/04/19 08:39; Admin Dose 5 MG; Start 12/25/18 at 15:30 Polyethylene Glycol (Miralax) 17 gm DAILY GTB Last administered on 01/05/19 08:58; Admin Dose 17 GM; Start 12/27/18 at 09:00 Insulin Glargine (Lantus) 4 units DAILY@2000 SC Last administered on 01/04/19 20:33; Admin Dose 4 UNITS; Start 12/28/18 at 20:00 Miscellaneous Information 1 ea NOTE XX ; Start 12/28/18 at 19:00 Glucose (Glutose) 15 gm Q15M PRN PO DECREASED GLUCOSE; Start 12/28/18 at 19:00 Glucose (Glutose) 22.5 gm Q15M PRN PO DECREASED GLUCOSE; Start 12/28/18 at 19:00 Dextrose (D50w Syringe) 25 ml Q15M PRN IV DECREASED GLUCOSE; Start 12/28/18 at 19:00 Dextrose (D50w Syringe) 50 ml Q15M PRN IV DECREASED GLUCOSE; Start 12/28/18 at 19:00 Glucagon (Glucagen) 1 mg Q15M PRN IM DECREASED GLUCOSE; Start 12/28/18 at 19:00 Glucose (Glutose) 15 gm Q15M PRN BUCCAL DECREASED GLUCOSE; Start 12/28/18 at 19:00 Sevelamer Carbonate (Renvela) 1.6 gm TID NGT Last administered on 01/05/19 12:31; Admin Dose 1.6 GM; Start 12/31/18 at 13:00 Meropenem/Sodium Chloride 50 ml @ 100 mls/hr Q24H IVPB Last administered on 2/26/19at 20:31; Admin Dose 100 MLS/HR; Start 12/31/18 at 20:00 Metoclopramide HCl (Reglan) 5 mg Q8 PO Last administered on 01/05/19at 05:40; Admin Dose 5 MG; Start 01/02/19 at 07:00 Olanzapine (Zyprexa) 2.5 mg DAILY PO Last administered on 01/05/19at 08:57; Admin Dose 2.5 MG; Start 01/03/19 at 09:00 JOSE RAUL ANDREWS MD Jan 05, 2019 14:20
--- NOTE | 2019-01-05 16:28 | CONS ---
Assessment/Plan Assessment/Plan Assessment/Plan (Daily) Hospital Course (Demo Recall) 83 yo female in ESRD on HD presents for melena and anemia and also found to have edematous Rt hand/wrist Interval Hx: No acute changes. Tolerating tube feeds at 30cc. No evidence of GI bleeding. 1. UGIB manifested through melena and anemia -no melena noted or GI bleeding noted by nursing staff -RESOLVED 2. Anemia, acute on chronic, acute likely due to blood loss in rt hand -No evidence of active GI bleeding, consider etiology of blood loss anemia to be from hematoma in hand -Fe wnl, TIBC low, Ferritin, folate, b12 high, FOB neg -likely due to chronic disease 3. ESRD on HD -Followed by nephrology 4. Hematoma of Rt hand and wrist -I and D drainage by Dr. Dean 11/17 -IMPROVED 5. Dysphagia -on tube feeds 6. DM2 7. HTN 8. H/O diastolic dysfunction heart failure 9. S/P EGD 11/18 10. Moderate gastritis with no bleeding noted. 11. Hospital acquired pneumonia -improved 12. Yeast in urine cx -cx 12/20 12. Emesis -no emesis in the last 24 hours per nursing staff Gastric biopsy results: Stomach, biopsy: -- Antral and oxyntic mucosa showing minimal plasma cell infiltration and small focus of intestinal metaplasia. -- No Helicobacter pylori is identified in Giemsa stain (positive control concurrently reviewed). -- No evidence of dysplasia or malignancy. Plan: Continue to monitor patient for Emesis,maintain aspiration precautions Try titrating tube feeds upto 35 cc/hr Give medications in small doses Reglan 5 mg prior to meals, low dose to due ESRD Continue present care Monitor HH closely and for active GI bleeding, Consultation Date/Type/Reason Admit Date/Time Nov 16, 2018 at 05:51 Initial Consult Date 11/16/18 Requesting Provider: DYLON WALLS MD Date/Time of Note DATE: 01/05/19 TIME: 16:26 24 HR Interval Summary Constitutional: no complaints, improved Exam/Review of Systems Exam Vitals Vital Signs Date Temp Pulse Resp B/P (MAP) Pulse Ox O2 O2 Flow FiO2 Time Delivery Rate 01/05/19 72 138/65 15:11 (89) 01/05/19 97.6 16 96 14:22 01/05/19 Room Air 11:35 01/04/19 21 14:49 Intake and Output 01/04/19 01/04/19 01/05/19 1414:59 22:59 06:59 IntakeIntake Total 610 ml 560 ml OutputOutput Total 1 ml BalanceBalance -1 ml 610 ml 560 ml Constitutional: alert, oriented, well developed Psych: no complaints, nl mood/affect Head: normocephalic, atraumatic Eyes: nl conjunctiva, EOMI, nl lids, nl sclera, PERRL ENMT: nl external ears & nose, nl lips & teeth, nl nasal mucosa & septum Neck: supple, non-tender Respiratory: clear to auscultation, normal air movement Cardiovascular: regular rate and rhythm, nl pulses Gastrointestinal: soft, nl liver, spleen, non-tender Musculoskeletal: nl extremities to inspection, nl gait and stance Extremities: normal pulses 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: [employer] II-XII intact, nl mental status, nl speech, nl strength Skin: nl turgor; No rash or lesions Lymph: nl lymph nodes Results Result Diagram: 01/04/19 0541 01/04/1941 Results 24hrs Laboratory Tests Test 01/04/19 20:32 01/05/19 03:12 01/05/19 08:55 Bedside Glucose 145 114 138 Medications Medication Current Medications IV Flush (NS 3 ml) 3 ml PER PROTOCOL IV ; Start 11/16/18 at 09:00 Ondansetron HCl (Zofran Inj) 4 mg Q6H PRN IV NAUSEA AND/OR VOMITING Last administered on 12/31/18at 11:45; Admin Dose 4 MG; Start 11/16/18 at 09:00 Hydralazine HCl (Apresoline) 10 mg Q4H PRN IV ELEVATED BLOOD PRESSURE Last administered on 12/22/18at 19:40; Admin Dose 10 MG; Start 11/17/18 at 10:30 Acetaminophen/ Hydrocodone Bitart ([place] (5/325)) 1 tab Q3H PRN PO MODERATE PAIN LEVEL 4-6 Last administered on 12/26/18at 22:10; Admin Dose 1 TAB; Start 11/17/18 at 14:30 Albumin Human 50 ml @ 100 mls/hr WITH DIALYSIS PRN IV SBP<90 Last administered on 01/05/19at 10:17; Admin Dose 100 MLS/HR; Start 11/18/18 at 14:30 Morphine Sulfate (morphine) 6 mg Q4H PRN PO SEVERE PAIN LEVEL 7-10 Last administered on 12/30/18 09:15; Admin Dose 6 MG; Start 11/18/18 at 23:00 Docusate Sodium (Colace Liquid Cup) 100 mg DAILY GTB Last administered on 01/05/19 08:57; Admin Dose 100 MG; Start 11/19/18 at 09:30 Multivit/Ca Carb/ B Cmplx/FA/Prenat (Kianna-Roque) 1 tab DAILY GTB Last administered on 01/05/19 08:57; Admin Dose 1 TAB; Start 11/24/18 at 09:00 Lansoprazole (Prevacid) 30 mg DAILY GTB Last administered on 01/05/19 08:57; Admin Dose 30 MG; Start 11/26/18 at 09:00 Acetaminophen (Tylenol Supp) [address] MILD PAIN(1-3) OR TEMP>38C Last administered on 11/26/18 08:32; Admin Dose 650 MG; Start 11/26/18 at 08:30 Epoetin Michael (Epogen (Esrd)) 4,000 units MoWeFr@17 SC Last administered on 01/03/19 18:23; Admin Dose 4,000 UNITS; Start 12/06/18 at 17:00 Hydralazine HCl (Apresoline) 50 mg Q8 PO Last administered on 01/04/19 05:48; Admin Dose 50 MG; Start 12/07/18 at 22:00 Metoprolol Tartrate (Lopressor) 100 mg BID GTB Last administered on 01/04/19 08:39; Admin Dose 100 MG; Start 12/13/18 at 21:00 Aspirin (Halfprin) 81 mg DAILY PO Last administered on 01/05/19 08:58; Admin Dose 81 MG; Start 12/13/18 at 19:30 Senna (Senokot) 1 tab BID PO Last administered on 01/05/19 08:57; Admin Dose 1 TAB; Start 12/17/18 at 21:00 Acetaminophen (Tylenol Tab) 650 mg Q6H PRN PO PAIN LEVEL 1-3 OR FEVER Last administered on 12/21/18 05:01; Admin Dose 650 MG; Start 12/17/18 at 15:00 Albuterol/ Ipratropium (Duoneb) 3 ml Q6H RESP THERAPY PRN HHN sob Last administered on 12/19/18 03:51; Admin Dose 3 ML; Start 12/17/18 at 09:00 Docusate Sodium (Colace) 100 mg Q12H PRN PO CONSTIPATION Last administered on 12/21/18 05:01; Admin Dose 100 MG; Start 12/17/18 at 21:00 Ferrous Sulfate (Feosol Liquid Cup) 300 mg BID GTB Last administered on 01/05/19 08:57; Admin Dose 300 MG; Start 12/17/18 at 21:00 Guaifenesin/ Dextromethorphan (Robitussin Dm Liquid Cup) 5 ml Q4H PRN PO cough Last administered on 12/24/18 21:16; Admin Dose 5 ML; Start 12/17/18 at 18:00 Linagliptin (Tradjenta) 5 mg DAILY GTB Last administered on 01/05/19 08:58; Admin Dose 5 MG; Start 12/17/18 at 09:00 Folic Acid (Folic Acid) 1 mg DAILY GTB Last administered on 01/05/19 08:58; Admin Dose 1 MG; Start 12/18/18 at 09:00 Metoclopramide HCl (Reglan) 5 mg Q8 PRN IV VOMITTING; Start 12/20/18 at 10:00 IV Flush (NS 10 ml) 10 ml AFTER DIALYSIS CATHETER ; Start 12/22/18 at 10:00 Voriconazole (Vfend) 200 mg BID PO Last administered on 01/05/19 08:57; Admin Dose 200 MG; Start 12/22/18 at 11:00 Magnesium Hydroxide (Milk Of Mag) 30 ml DAILY PRN PO CONSTIPATION; Start 12/22/18 at 17:00 Sodium Chloride (NS) -To prime the dialy... DIRECTED FOR HD PRN IV HD; Start 12/23/18 at 16:00 Amlodipine Besylate (Norvasc) 5 mg DAILY GTB Last administered on 01/04/19 08:39; Admin Dose 5 MG; Start 12/25/18 at 15:30 Polyethylene Glycol (Miralax) 17 gm DAILY GTB Last administered on 01/05/19 08:58; Admin Dose 17 GM; Start 12/27/18 at 09:00 Insulin Glargine (Lantus) 4 units DAILY@2000 SC Last administered on 01/04/19at 20:33; Admin Dose 4 UNITS; Start 12/28/18 at 20:00 Miscellaneous Information 1 ea NOTE XX ; Start 12/28/18 at 19:00 Glucose (Glutose) 15 gm Q15M PRN PO DECREASED GLUCOSE; Start 12/28/18 at 19:00 Glucose (Glutose) 22.5 gm Q15M PRN PO DECREASED GLUCOSE; Start 12/28/18 at 19:00 Dextrose (D50w Syringe) 25 ml Q15M PRN IV DECREASED GLUCOSE; Start 12/28/18 at 19:00 Dextrose (D50w Syringe) 50 ml Q15M PRN IV DECREASED GLUCOSE; Start 12/28/18 at 19:00 Glucagon (Glucagen) 1 mg Q15M PRN IM DECREASED GLUCOSE; Start 12/28/18 at 19:00 Glucose (Glutose) 15 gm Q15M PRN BUCCAL DECREASED GLUCOSE; Start 12/28/18 at 19:00 Sevelamer Carbonate (Renvela) 1.6 gm TID NGT Last administered on 01/05/19at 12:31; Admin Dose 1.6 GM; Start 12/31/18 at 13:00 Meropenem/Sodium Chloride 50 ml @ 100 mls/hr Q24H IVPB Last administered on 01/04/19at 20:31; Admin Dose 100 MLS/HR; Start 12/31/18 at 20:00 Metoclopramide HCl (Reglan) 5 mg Q8 PO Last administered on 01/05/19at 15:13; Admin Dose 5 MG; Start 01/02/19 at 07:00 Olanzapine (Zyprexa) 2.5 mg DAILY PO Last administered on 01/05/19 08:57; Admin Dose 2.5 MG; Start 01/03/19 at 09:00 CHRISS WELCH MD Jan 05, 2019 16:28
[2019-01-05] MEDS: EPOETIN 4000 UNITS/1 ML INJ (ESRD) SC SCH (17:35)
[2019-01-05] MEDS: MEROPENEM 500MG/50 ML (PMX) 50 ML IVPB SCH (21:17)
[2019-01-05] MEDS: HYDROCODONE/APAP (5/325) TAB PO PRN (21:18)
[2019-01-05] MEDS: INSULIN GLARGINE [LANTus] (100 UNITS/ML) SYG SC SCH (21:28)
--- NOTE | 2019-01-06 00:42 | PN ---
DATE: 01/05/2019 SUBJECTIVE: The patient is seen, alert, doing overall well, less confused. Case discussed with nurs ing staff. PHYSICAL EXAMINATION: VITAL SIGNS: Temperature 97.6, pulse 72, respirations 16, blood pressure was 138/65, saturation 96%. GENERAL: No acute distress, pale. CARDIOVASCULAR: S1, S2, regular rate. LUNGS: Clear. ABDOMEN: Soft, nontender. EXTREMITIES: No clubbing, cyanosis, or edema. G-tube is in place. LABORATORY DATA: Done yesterday shows a white count of 6.7, hemoglobin 8.6. Last glucose levels are 144, 138 and 114. MEDICATIONS: The patient's medications were all reviewed and include; 1. Zyprexa. 2. Reglan. 3. Merrem. 4. Renvela. 5. Lantus. 6. Hypoglycemia protocol. 7. MiraLax. 8. Norvasc. 9. Milk of magnesia. 10. Folic acid. 11. Senna. 12. Colace. 13. Ferrous sulfate. 14. Robitussin. 15. Tylenol. 16. DuoNeb. 17. Tradjenta. 18. Lopressor. 19. Aspirin. 20. Hydralazine. 21. Epogen 20. 22 Kianna-Roque. 23. Morphine. 24. Albumin. 25. [place]. 26. Hydralazine. 27. Zofran. ASSESSMENT AND PLAN: This is an 83-year-old [place] female with end-stage renal disease, advanced d ementia, ASCVD, status post bacteremia, fungemia, urinary tract infection, status post evacuation of right hand hematoma recently been treated for aspiration pneumonia. 1. Respiratory. Remains on Merrem for aspiration pneumonia, clinically doing well. 2. Dysphagia. Continue G-tube feeding 30 mL an hour with higher dose. The patient had episodes of aspiration. Taper down Reglan. 3. Cardiovascular. Vitals are stable. 4. Diabetes mellitus. Glucose is overall in the low 100s with Levemir and Tradjenta. 5. End-stage renal disease, had dialysis today. 200 mL of fluid was removed. 6. Anemia. Continue Epogen. Transfuse p.r.n. Check labs periodically. 7. Urinary tract infection. 9. Mood disorder, on low dose Zyprexa at night. Clinically better. Awaiting placement. Case manag er is following. The patient was referred to [facility] awaiting response. We will follow. Dictated By: DYLON HULL/MADAN Conf#: [id number] DID#: [id number] CC: DYLON WALLS MD; CHRISS WELCH MD;*EndCC*
[2019-01-06 02:00] VITALS: BP 147/65; PULSE 67; RESP 18
[2019-01-06] MEDS: METOCLOPRAMIDE 5 MG TAB PO SCH ×3 (06:04→22:04)
[2019-01-06 08:22] VITALS: BP 155/65; PULSE 79; RESP 20
--- NOTE | 2019-01-06 08:39 | CONS ---
Consult Date/Type/Reason Admit Date/Time Nov 16, 2018 at 05:51 Initial Consult Date 11/16/18 Type of Consultation: cv Requesting Provider: DYLON WALLS MD Date/Time of Note DATE: 01/06/19 TIME: 08:38 Subjective Cardiology follow up note Sl DW/ Staff . Patient is off tele now. pt continues to be confused but calm and cooperative now no report of any chest pain or pressure or palpitations but pt is a very poor historian Events noted. 12/13/18: Patient went into atrial fibrillation rapid ventricular response during hemodialysis . Patient has been transferred to telemetry and converted back to sinus rhythm remains in sinus rhythm s/p I/D 11/17 EGD 11.18.18 O: General: Elderly frail female in no acute distress HEENT: NC/AT. Eyes are closed NECK: NO JVD. no stridor. CV: RRR. systolic murmur; no gallop or rubs. PULM: no wheezing or rhonchi. GI: SOFT, NT, ND, no rebound or guarding neuro: AWAKE and alert Psych: calm now rectal: deferred Objective Vitals Vital Signs Date Temp Pulse Resp B/P (MAP) Pulse Ox O2 O2 Flow FiO2 Time Delivery Rate 01/06/19 97.4 79 20 155/65 99 Room Air 08:22 (95) 01/04/19 21 14:49 Intake and Output 01/05/19 01/05/19 01/06/19 1414:59 22:59 06:59 IntakeIntake Total 610 ml 480 ml OutputOutput Total 650 ml BalanceBalance -650 ml 610 ml 480 ml Results/Medications Result Diagram: 01/04/19 0541 01/04/19 0541 Results 24 hrs Laboratory Tests Test 01/05/19 08:55 01/05/19 16:18 01/05/19 21:12 Bedside Glucose 138 144 165 Home Meds Reported Medications Sennosides* (Senna Lax*) 8.6 Mg Tablet, 1 TAB PO BID, TAB 11/16/18 Sevelamer Carbonate* (Renvela*) 0.8 Gm Powd.pack, 0.8 GM PO WITH MEALS, PACKET 11/16/18 Lansoprazole* (Lansoprazole*) 30 Mg Capsule.dr, 30 MG PO QAM, CAP 11/16/18 Hydralazine Hcl* (Hydralazine Hcl*) 25 Mg Tab, 25 MG PO Q8, #90 TAB 11/16/18 Ferrous Sulfate* (Ferrous Sulfate*) 325 Mg Tabec, 325 MG PO BID for anemia, TAB 11/16/18 Valproate Sodium (Valproic Acid) 250 Mg/5 Ml Solution, 250 MG PO Q8, ML 11/16/18 Insulin Aspart* (Novolog Insulin Pen*) 100 Unit/Ml Soln, 0 SC .SLIDING SCALE AC, EA IF BS 160-200=2 UNITS,201-250=4 UNITS,251-300=8 UNITS,301-350=12 UNITS;351-400=16 UNITS THEN CALL MD. 10/16/18 Ondansetron Hcl* (Zofran*) 4 Mg Tab, 4 MG GTB Q4H PRN for NAUSEA AND OR VOMITING, TAB 10/16/18 Linagliptin (TRADJENTA) 5 Mg Tablet, 5 MG GTB DAILY, TAB 10/16/18 Quetiapine Fumarate* (Seroquel*) 25 Mg Tablet, 25 MG GTB BID, #60 TAB 10/16/18 [Nephro-Roque] No Conflict Check, 0.8 MG GTB DAILY 10/16/18 Polyethylene Glycol* (Miralax*) 17 Gm Powd.pack, 17 GM GTB Q24H, #30 PACKET 10/16/18 Metoprolol Tartrate* (Lopressor*) 50 Mg Tab, 50 MG GTB DAILY, #60 TAB Q MON,WED,FRI,SUN,HOLD FOR SBP<110 OR GA<60 10/16/18 Metoprolol Tartrate* (Lopressor*) 50 Mg Tab, 50 MG GTB BID, #60 TAB QTUE,ANDREW,SAT,HOLD FOR SBP<110 OR GA<60 10/16/18 Linaclotide (LINZESS) 145 Mcg Capsule, 145 MCG GTB DAILY, #30 CAP 10/16/18 Ipratropium-Albuterol (Ipratropium-Albuterol) 0.5-3 Mg/3 Ml Ampul.neb, 3 ML INHALATION Q6, #30 VIAL FOR 14 DAYS,STOP DATE 10/17/18 10/16/18 Hydralazine Hcl* (Hydralazine Hcl*) 25 Mg Tab, 25 MG GTB DAILY, #60 TAB Q TUE,ANDREW,SAT,HOLD IF SBP<110 OR GA<60 10/16/18 Folic Acid* (Folic Acid*) 1 Mg Tablet, 1 MG GTB DAILY, TAB 10/16/18 Docusate Sodium* (Colace*) 100 Mg Capsule, 100 MG GTB DAILY, #30 CAP 10/16/18 Lorazepam* (Lorazepam*) 1 Mg Tablet, 1 MG GTB HS PRN for ANXIETY, #30 TAB Q TUE,ANDREW,SAT 10/16/18 Amlodipine Besylate* (Norvasc*) 5 Mg Tablet, 5 MG GTB BID, TAB TAKE Q TUE,ANDREW,SAT FOR HTN, HOLD FOR SBP<110 OR GA<60 10/16/18 Acetaminophen* (Acetaminophen*) 650 Mg Tablet, 650 MG GTB Q6H PRN for PAIN LEVEL 1-08/18, #30 TAB 10/16/18 Medications Current Medications IV Flush (NS 3 ml) 3 ml PER PROTOCOL IV ; Start 11/16/18 at 09:00 Ondansetron HCl (Zofran Inj) 4 mg Q6H PRN IV NAUSEA AND/OR VOMITING Last administered on 12/31/18 11:45; Admin Dose 4 MG; Start 11/16/18 at 09:00 Hydralazine HCl (Apresoline) 10 mg Q4H PRN IV ELEVATED BLOOD PRESSURE Last administered on 12/22/18 19:40; Admin Dose 10 MG; Start 11/17/18 at 10:30 Acetaminophen/ Hydrocodone Bitart ([place] (5/325)) 1 tab Q3H PRN PO MODERATE PAIN LEVEL 4-6 Last administered on 01/05/19 21:18; Admin Dose 1 TAB; Start 11/17/18 at 14:30 Albumin Human 50 ml @ 100 mls/hr WITH DIALYSIS PRN IV SBP<90 Last administered on 01/05/19 10:17; Admin Dose 100 MLS/HR; Start 11/18/18 at 14:30 Morphine Sulfate (morphine) 6 mg Q4H PRN PO SEVERE PAIN LEVEL 7-10 Last administered on 12/30/18 09:15; Admin Dose 6 MG; Start 11/18/18 at 23:00 Docusate Sodium (Colace Liquid Cup) 100 mg DAILY GTB Last administered on 01/05/19 08:57; Admin Dose 100 MG; Start 11/19/18 at 09:30 Multivit/Ca Carb/ B Cmplx/FA/Prenat (Kianna-Roque) 1 tab DAILY GTB Last administered on 01/05/19 08:57; Admin Dose 1 TAB; Start 11/24/18 at 09:00 Lansoprazole (Prevacid) 30 mg DAILY GTB Last administered on 01/05/19 08:57; Admin Dose 30 MG; Start 11/26/18 at 09:00 Acetaminophen (Tylenol Supp) 650 mg Q4H PRN [place] MILD PAIN(1-3) OR TEMP>38C Last administered on 11/26/18 08:32; Admin Dose 650 MG; Start 11/26/18 at 08:30 Epoetin Michael (Epogen (Esrd)) 4,000 units MoWeFr@17 SC Last administered on 01/05/19 17:35; Admin Dose 4,000 UNITS; Start 12/06/18 at 17:00 Hydralazine HCl (Apresoline) 50 mg Q8 PO Last administered on 01/06/19 06:04; Admin Dose 50 MG; Start 12/07/18 at 22:00 Metoprolol Tartrate (Lopressor) 100 mg BID GTB Last administered on 01/05/19 21:18; Admin Dose 100 MG; Start 12/13/18 at 21:00 Aspirin (Halfprin) 81 mg DAILY PO Last administered on 01/05/19 08:58; Admin Dose 81 MG; Start 12/13/18 at 19:30 Senna (Senokot) 1 tab BID PO Last administered on 01/05/19 21:17; Admin Dose 1 TAB; Start 12/17/18 at 21:00 Acetaminophen (Tylenol Tab) 650 mg Q6H PRN PO PAIN LEVEL 1-3 OR FEVER Last administered on 12/21/18 05:01; Admin Dose 650 MG; Start 12/17/18 at 15:00 Albuterol/ Ipratropium (Duoneb) 3 ml Q6H RESP THERAPY PRN HHN sob Last administered on 12/19/18 03:51; Admin Dose 3 ML; Start 12/17/18 at 09:00 Docusate Sodium (Colace) 100 mg Q12H PRN PO CONSTIPATION Last administered on 12/21/18 05:01; Admin Dose 100 MG; Start 12/17/18 at 21:00 Ferrous Sulfate (Feosol Liquid Cup) 300 mg BID GTB Last administered on 01/05/19 21:17; Admin Dose 300 MG; Start 12/17/18 at 21:00 Guaifenesin/ Dextromethorphan (Robitussin Dm Liquid Cup) 5 ml Q4H PRN PO cough Last administered on 12/24/18 21:16; Admin Dose 5 ML; Start 12/17/18 at 18:00 Linagliptin (Tradjenta) 5 mg DAILY GTB Last administered on 01/05/19 08:58; Admin Dose 5 MG; Start 12/17/18 at 09:00 Folic Acid (Folic Acid) 1 mg DAILY GTB Last administered on 01/05/19 08:58; Admin Dose 1 MG; Start 12/18/18 at 09:00 Metoclopramide HCl (Reglan) 5 mg Q8 PRN IV VOMITTING; Start 12/20/18 at 10:00 IV Flush (NS 10 ml) 10 ml AFTER DIALYSIS CATHETER ; Start 12/22/18 at 10:00 Voriconazole (Vfend) 200 mg BID PO Last administered on 01/05/19 21:17; Admin Dose 200 MG; Start 12/22/18 at 11:00 Magnesium Hydroxide (Milk Of Mag) 30 ml DAILY PRN PO CONSTIPATION; Start 12/22/18 at 17:00 Sodium Chloride (NS) -To prime the dialy... DIRECTED FOR HD PRN IV HD; Start 12/23/18 at 16:00 Amlodipine Besylate (Norvasc) 5 mg DAILY GTB Last administered on 01/04/19 08:39; Admin Dose 5 MG; Start 12/25/18 at 15:30 Polyethylene Glycol (Miralax) 17 gm DAILY GTB Last administered on 01/05/19 08:58; Admin Dose 17 GM; Start 12/27/18 at 09:00 Insulin Glargine (Lantus) 4 units DAILY@2000 SC Last administered on 01/05/19 21:28; Admin Dose 4 UNITS; Start 12/28/18 at 20:00 Miscellaneous Information 1 ea NOTE XX ; Start 12/28/18 at 19:00 Glucose (Glutose) 15 gm Q15M PRN PO DECREASED GLUCOSE; Start 12/28/18 at 19:00 Glucose (Glutose) 22.5 gm Q15M PRN PO DECREASED GLUCOSE; Start 12/28/18 at 19:00 Dextrose (D50w Syringe) 25 ml Q15M PRN IV DECREASED GLUCOSE; Start 12/28/18 at 19:00 Dextrose (D50w Syringe) 50 ml Q15M PRN IV DECREASED GLUCOSE; Start 12/28/18 at 19:00 Glucagon (Glucagen) 1 mg Q15M PRN IM DECREASED GLUCOSE; Start 12/28/18 at 19:00 Glucose (Glutose) 15 gm Q15M PRN BUCCAL DECREASED GLUCOSE; Start 12/28/18 at 19:00 Sevelamer Carbonate (Renvela) 1.6 gm TID NGT Last administered on 01/05/19at 21:22; Admin Dose 1.6 GM; Start 12/31/18 at 13:00 Meropenem/Sodium Chloride 50 ml @ 100 mls/hr Q24H IVPB Last administered on 01/05/19at 21:17; Admin Dose 100 MLS/HR; Start 12/31/18 at 20:00 Metoclopramide HCl (Reglan) 5 mg Q8 PO Last administered on 01/06/19 06:04; Admin Dose 5 MG; Start 01/02/19 at 07:00 Olanzapine (Zyprexa) 2.5 mg DAILY PO Last administered on 01/05/19 08:57; Admin Dose 2.5 MG; Start 01/03/19 at 09:00 Assessment/Plan Hospital Course (Demo Recall) P-atrial fibrillation rapid ventricular response: Currently back in sinus rhythm fungemia /fungal urinary tract infection Status post right hand hematoma: Status post I&D Renal failure on dialysis Hypertension Dementia Anemia Possible GI bleed: Status post EGD AI Recommendations: pt is not on full anticoagulation due to the fall risk as well as anemia cont beta-farrah Dialysis as per renal team Neuro workup and treatment as per internal medicine Antibiotic as per ID and internal medicine asa for now and monitor Thank you for his referral. We will continue to follow along with you as needed basis CHRISTEN ESCOBEDO MD [facility] CHRISTEN ESCOBEDO MD Jan 06, 2019 08:38
[2019-01-06] MEDS: ASPIRIN (EC) 81 MG TAB PO SCH (09:00)
[2019-01-06] MEDS: POLYETHYLENE GLYCOL 17 GM PACKET GTB SCH (09:24)
[2019-01-06] MEDS: DOCUSATE SODIUM 10 MG/ML (10ML CUP) GTB SCH (09:24)
[2019-01-06] MEDS: SEVELAMER CARBONATE 0.8 GM PKT NGT SCH ×3 (09:24→20:53)
[2019-01-06] MEDS: FERROUS SULFATE 60 MG/ML 5ML CUP GTB SCH ×2 (09:24→20:54)
[2019-01-06] MEDS: MULTIVIT/CA CARB/B CMPLX/FA TAB GTB SCH (09:24)
[2019-01-06] MEDS: VORICONAZOLE 200 MG TAB PO SCH ×2 (09:25→20:54)
[2019-01-06] MEDS: FOLIC ACID 1 MG TAB GTB SCH (09:25)
[2019-01-06] MEDS: LANSOPRAZOLE 30 MG CAP GTB SCH (09:26)
[2019-01-06] MEDS: METOPROLOL 50 MG TAB GTB SCH ×2 (09:26→20:54)
[2019-01-06] MEDS: AMLODIPINE 5 MG TAB GTB SCH (09:26)
[2019-01-06] MEDS: SENNA TAB PO SCH ×2 (09:27→20:53)
[2019-01-06] MEDS: LINAGLIPTIN 5 MG TABLET GTB SCH (09:27)
[2019-01-06] MEDS: OLANZAPINE 2.5 MG TAB PO SCH (09:27)
[2019-01-06 14:04] VITALS: BP 135/59; PULSE 65
--- NOTE | 2019-01-06 16:25 | CONS ---
Assessment/Plan Assessment/Plan Hospital Course (Demo Recall) No events, awake, looks comfortable Antimicrobials: Meropenem, day #7 Blood culture repeated on November 29 grew Dominique glabrata blood cultures since December 01 that were drawn from permacath negative blood culture on December 03 negative, urine culture growing C glabrata Indwelling: Left chest permacath, PEG Physical examination: Chronically ill-appearing elderly woman who is awake, confused, in no distress. Head atraumatic normocephalic. Neck is supple. Chest rise symmetrical breath sounds diminished bases. Heart: S1-S2. Abdomen soft bowel sounds present, right upper extremity Armani wrapped Assessment: 1. S/p recurrent aspiration event 2. Status post UTI==> T glabrata 3. S/p Fungemia secondary to urinary tract infection 4. Right hand hematoma, status post I&D 11/17/18 5. Status post VRE bacteremia/new Pcath 6. End-stage renal disease, hemodialysis dependent 7. Failure to thrive 8. Diabetes 9. Anemia 10. P Afib Plan: Stable, continue aspiration precautions, dc abx Consultation Date/Type/Reason Admit Date/Time Nov 16, 2018 at 05:51 Initial Consult Date 11/16/18 Type of Consult id Requesting Provider: DYLON WALLS MD Date/Time of Note DATE: 01/06/19 TIME: 16:23 Exam/Review of Systems Exam Vitals Vital Signs Date Temp Pulse Resp B/P (MAP) Pulse Ox O2 O2 Flow FiO2 Time Delivery Rate 01/06/19 65 135/59 14:04 (84) 01/06/19 97.4 20 99 Room Air 08:22 01/04/19 21 14:49 Intake and Output 01/05/19 01/05/19 01/06/19 1515:00 23:00 07:00 IntakeIntake Total 610 ml 480 ml OutputOutput Total 650 ml BalanceBalance -650 ml 610 ml 480 ml Results Result Diagram: 01/04/19 0541 01/04/19 0541 Results 24hrs Laboratory Tests Test 01/05/19 21:12 01/06/19 12:10 Bedside Glucose 165 100 Medications Medication Current Medications IV Flush (NS 3 ml) 3 ml PER PROTOCOL IV ; Start 11/16/18 at 09:00 Ondansetron HCl (Zofran Inj) 4 mg Q6H PRN IV NAUSEA AND/OR VOMITING Last administered on 12/31/18 11:45; Admin Dose 4 MG; Start 11/16/18 at 09:00 Hydralazine HCl (Apresoline) 10 mg Q4H PRN IV ELEVATED BLOOD PRESSURE Last administered on 12/22/18 19:40; Admin Dose 10 MG; Start 11/17/18 at 10:30 Acetaminophen/ Hydrocodone Bitart ([place] (5/325)) 1 tab Q3H PRN PO MODERATE PAIN LEVEL 4-6 Last administered on 01/05/19 21:18; Admin Dose 1 TAB; Start 11/17/18 at 14:30 Albumin Human 50 ml @ 100 mls/hr WITH DIALYSIS PRN IV SBP<90 Last administered on 01/05/19 10:17; Admin Dose 100 MLS/HR; Start 11/18/18 at 14:30 Morphine Sulfate (morphine) 6 mg Q4H PRN PO SEVERE PAIN LEVEL 7-10 Last administered on 12/30/18 09:15; Admin Dose 6 MG; Start 11/18/18 at 23:00 Docusate Sodium (Colace Liquid Cup) 100 mg DAILY GTB Last administered on 01/06/19 09:24; Admin Dose 100 MG; Start 11/19/18 at 09:30 Multivit/Ca Carb/ B Cmplx/FA/Prenat (Kianna-Roque) 1 tab DAILY GTB Last administered on 01/06/19 09:24; Admin Dose 1 TAB; Start 11/24/18 at 09:00 Lansoprazole (Prevacid) 30 mg DAILY GTB Last administered on 01/06/19 09:26; Admin Dose 30 MG; Start 11/26/18 at 09:00 Acetaminophen (Tylenol Supp) 650 mg Q4H PRN [place] MILD PAIN(1-3) OR TEMP>38C Last administered on 11/26/18 08:32; Admin Dose 650 MG; Start 11/26/18 at 08:30 Epoetin Michael (Epogen (Esrd)) 4,000 units MoWeFr@17 SC Last administered on 01/05/19 17:35; Admin Dose 4,000 UNITS; Start 12/06/18 at 17:00 Hydralazine HCl (Apresoline) 50 mg Q8 PO Last administered on 01/06/19 13:57; Admin Dose 50 MG; Start 12/07/18 at 22:00 Metoprolol Tartrate (Lopressor) 100 mg BID GTB Last administered on 01/06/19 09:26; Admin Dose 100 MG; Start 12/13/18 at 21:00 Aspirin (Halfprin) 81 mg DAILY PO Last administered on 01/06/19 09:00; Admin Dose 81 MG; Start 12/13/18 at 19:30 Senna (Senokot) 1 tab BID PO Last administered on 01/06/19 09:27; Admin Dose 1 TAB; Start 12/17/18 at 21:00 Acetaminophen (Tylenol Tab) 650 mg Q6H PRN PO PAIN LEVEL 1-3 OR FEVER Last administered on 12/21/18 05:01; Admin Dose 650 MG; Start 12/17/18 at 15:00 Albuterol/ Ipratropium (Duoneb) 3 ml Q6H RESP THERAPY PRN HHN sob Last administered on 12/19/18 03:51; Admin Dose 3 ML; Start 12/17/18 at 09:00 Docusate Sodium (Colace) 100 mg Q12H PRN PO CONSTIPATION Last administered on 12/21/18 05:01; Admin Dose 100 MG; Start 12/17/18 at 21:00 Ferrous Sulfate (Feosol Liquid Cup) 300 mg BID GTB Last administered on 01/06/19 09:24; Admin Dose 300 MG; Start 12/17/18 at 21:00 Guaifenesin/ Dextromethorphan (Robitussin Dm Liquid Cup) 5 ml Q4H PRN PO cough Last administered on 12/24/18 21:16; Admin Dose 5 ML; Start 12/17/18 at 18:00 Linagliptin (Tradjenta) 5 mg DAILY GTB Last administered on 01/06/19 09:27; Admin Dose 5 MG; Start 12/17/18 at 09:00 Folic Acid (Folic Acid) 1 mg DAILY GTB Last administered on 01/06/19 09:25; Admin Dose 1 MG; Start 12/18/18 at 09:00 Metoclopramide HCl (Reglan) 5 mg Q8 PRN IV VOMITTING; Start 12/20/18 at 10:00 IV Flush (NS 10 ml) 10 ml AFTER DIALYSIS CATHETER ; Start 12/22/18 at 10:00 Voriconazole (Vfend) 200 mg BID PO Last administered on 01/06/19 09:25; Admin Dose 200 MG; Start 12/22/18 at 11:00 Magnesium Hydroxide (Milk Of Mag) 30 ml DAILY PRN PO CONSTIPATION; Start 12/22/18 at 17:00 Sodium Chloride (NS) -To prime the dialy... DIRECTED FOR HD PRN IV HD; Start 12/23/18 at 16:00 Amlodipine Besylate (Norvasc) 5 mg DAILY GTB Last administered on 01/06/19 09:26; Admin Dose 5 MG; Start 12/25/18 at 15:30 Polyethylene Glycol (Miralax) 17 gm DAILY GTB Last administered on 01/06/19 09:24; Admin Dose 17 GM; Start 12/27/18 at 09:00 Insulin Glargine (Lantus) 4 units DAILY@2000 SC Last administered on 01/05/19 21:28; Admin Dose 4 UNITS; Start 12/28/18 at 20:00 Miscellaneous Information 1 ea NOTE XX ; Start 12/28/18 at 19:00 Glucose (Glutose) 15 gm Q15M PRN PO DECREASED GLUCOSE; Start 12/28/18 at 19:00 Glucose (Glutose) 22.5 gm Q15M PRN PO DECREASED GLUCOSE; Start 12/28/18 at 19:00 Dextrose (D50w Syringe) 25 ml Q15M PRN IV DECREASED GLUCOSE; Start 12/28/18 at 19:00 Dextrose (D50w Syringe) 50 ml Q15M PRN IV DECREASED GLUCOSE; Start 12/28/18 at 19:00 Glucagon (Glucagen) 1 mg Q15M PRN IM DECREASED GLUCOSE; Start 12/28/18 at 19:00 Glucose (Glutose) 15 gm Q15M PRN BUCCAL DECREASED GLUCOSE; Start 12/28/18 at 19:00 Sevelamer Carbonate (Renvela) 1.6 gm TID NGT Last administered on 01/06/19 13:57; Admin Dose 1.6 GM; Start 12/31/18 at 13:00 Meropenem/Sodium Chloride 50 ml @ 100 mls/hr Q24H IVPB Last administered on 01/05/19 21:17; Admin Dose 100 MLS/HR; Start 12/31/18 at 20:00 Metoclopramide HCl (Reglan) 5 mg Q8 PO Last administered on 01/06/19at 13:57; Admin Dose 5 MG; Start 01/02/19 at 07:00 Olanzapine (Zyprexa) 5 mg DAILY PO ; Start 01/07/19 at 09:00 PHYLICIA HOLCOMB NP Jan 06, 2019 16:25
--- NOTE | 2019-01-06 17:51 | PN ---
DATE: 01/06/2019 SUBJECTIVE: The patient was seen. The patient is alert, slightly anxious. PHYSICAL EXAMINATION: VITAL SIGNS: Temperature 97.4, pulse 65, respirations 20, blood pressure 135/59, saturation 99%. GENERAL: No acute distress. HEENT: Normocephalic, atraumatic. The patient is pale. CARDIOVASCULAR: S1, S2, regular rate. LUNGS: Clear. ABDOMEN: Soft, nontender. EXTREMITIES: No clubbing, cyanosis or edema. LABORATORY DATA: No new labs today. Last labs on 01/04/2019 revealed white count of 6.7, hemoglobin 8.6. Chemistry: No new labs. Last glucose level was 100, 165 and 144. MEDICATIONS: All reviewed which include Zyprexa 2.5 daily, may increase the dose to 5 mg as patient is quite anxious this afternoon. ASSESSMENT AND PLAN: This is an 83-year-old [place] female with end-stage renal disease, advanced d ementia, atherosclerotic cardiovascular disease, status post bacteremia, fungemia, urinary tract infe ction, status post evacuation of right hand hematoma and treated recently for aspiration pneumonia. 1. Respiratory. The patient has been on antibiotics with Merrem. Last dose is actually today. 2. Urinary tract infection. The patient has been on Vfend. 3. Hypertension, overall controlled, fluctuation between 130s and 150s. 4. End-stage renal disease, dialysis per Dr. Stringer. 5. Anemia. Continue Epogen. Monitor H and H periodically. 6. Psychiatric disorder. Increase Zyprexa to 5 mg. 7. Diabetes mellitus. Glucose levels have been in the 100s. Continue Levemir 4 units and Tradjenta . 8. Urinary tract infection, on Vfend. 9. Mood disorder. . 10. Awaiting placement. manager health is assisting with placement. Clinically stable for discharge, pending facility. Dictated By: DYLON HULL/MADAN Conf#: [id number] DID#: [id number] CC: CHRISS WELCH MD;*EndCC*
[2019-01-06 19:45] VITALS: BP 150/67; PULSE 75; RESP 18
[2019-01-06] MEDS: INSULIN GLARGINE [LANTus] (100 UNITS/ML) SYG SC SCH (20:58)
[2019-01-06 22:04] VITALS: BP 155/61; PULSE 69
[2019-01-07] VITALS (18 sets, daily range): BP systolic 106–159; BP diastolic 46–82; PULSE 70–86; RESP 16–20
[2019-01-07] MEDS: METOCLOPRAMIDE 5 MG TAB PO SCH ×3 (05:49→22:00)
--- NOTE | 2019-01-07 05:52 | CONS ---
Assessment/Plan Assessment/Plan Hospital Course (Demo Recall) 83 y/o with Hospital Course (Demo Recall) 1. End-stage renal disease on hemodialysis. 2. Gastrointestinal bleed with melena.resolved 3. Hypertension. 4. Diabetes. 5. Right hand swelling, s/p I and D on 11/17/18 6. History of falls. 7. Vascular dementia. 8. History of sepsis with VRE. 9. Dysphagia, status post G-tube. 10. History of hip fracture. 11. Thrombocytopenia. 12. Atherosclerotic heart disease. 13. Pneumonia left side 14. Anemia 15 YEAST BACTERIMIA LIKELY DUE TO UTI resolves 16 Paroxsymal AFib now in sinus Assessment/Plan (Daily) - Hd MWF, Hd tmw - cw with permacath -avoid nephrotoxic drugs -HD MWFr -c/w epogen - Aspiration precautions -? hold off sedatives/pain meds DC planning Consultation Date/Type/Reason Admit Date/Time Nov 16, 2018 at 05:51 Initial Consult Date 11/16/18 Requesting Provider: DYLON WALLS MD Date/Time of Note DATE: 01/07/19 TIME: 05:51 24 HR Interval Summary Free Text/Dictation LATE note entry Pt was seen on 01/06 No new events getting chest Xray Exam/Review of Systems Exam Vitals Vital Signs Date Temp Pulse Resp B/P (MAP) Pulse Ox O2 O2 Flow FiO2 Time Delivery Rate 01/07/19 98.1 76 18 156/71 97 02:00 (99) 01/06/19 Room Air 19:45 01/04/19 21 14:49 Exam Exam left permactah awake CTAB Results Result Diagram: 01/04/19 0541 01/04/19 0541 Results 24hrs Laboratory Tests Test 01/06/19 12:10 01/06/19 17:36 01/06/19 20:55 Bedside Glucose 100 171 166 Medications Medication Current Medications IV Flush (NS 3 ml) 3 ml PER PROTOCOL IV ; Start 11/16/18 at 09:00 Ondansetron HCl (Zofran Inj) 4 mg Q6H PRN IV NAUSEA AND/OR VOMITING Last administered on 12/31/18at 11:45; Admin Dose 4 MG; Start 11/16/18 at 09:00 Hydralazine HCl (Apresoline) 10 mg Q4H PRN IV ELEVATED BLOOD PRESSURE Last administered on 12/22/18 19:40; Admin Dose 10 MG; Start 11/17/18 at 10:30 Acetaminophen/ Hydrocodone Bitart ([place] (5/325)) 1 tab Q3H PRN PO MODERATE PAIN LEVEL 4-6 Last administered on 01/05/19 21:18; Admin Dose 1 TAB; Start 11/17/18 at 14:30 Albumin Human 50 ml @ 100 mls/hr WITH DIALYSIS PRN IV SBP<90 Last administered on 01/05/19 10:17; Admin Dose 100 MLS/HR; Start 11/18/18 at 14:30 Morphine Sulfate (morphine) 6 mg Q4H PRN PO SEVERE PAIN LEVEL 7-10 Last administered on 12/30/18 09:15; Admin Dose 6 MG; Start 11/18/18 at 23:00 Docusate Sodium (Colace Liquid Cup) 100 mg DAILY GTB Last administered on 01/06/19 09:24; Admin Dose 100 MG; Start 11/19/18 at 09:30 Multivit/Ca Carb/ B Cmplx/FA/Prenat (Kianna-Roque) 1 tab DAILY GTB Last administered on 01/06/19 09:24; Admin Dose 1 TAB; Start 11/24/18 at 09:00 Lansoprazole (Prevacid) 30 mg DAILY GTB Last administered on 01/06/19 09:26; Admin Dose 30 MG; Start 11/26/18 at 09:00 Acetaminophen (Tylenol Supp) 650 mg Q4H PRN [place] MILD PAIN(1-3) OR TEMP>38C Last administered on 11/26/18 08:32; Admin Dose 650 MG; Start 11/26/18 at 08:30 Epoetin Michael (Epogen (Esrd)) 4,000 units MoWeFr@17 SC Last administered on 01/05/19 17:35; Admin Dose 4,000 UNITS; Start 12/06/18 at 17:00 Hydralazine HCl (Apresoline) 50 mg Q8 PO Last administered on 01/06/19 22:04; Admin Dose 50 MG; Start 12/07/18 at 22:00 Metoprolol Tartrate (Lopressor) 100 mg BID GTB Last administered on 01/06/19 20:54; Admin Dose 100 MG; Start 12/13/18 at 21:00 Aspirin (Halfprin) 81 mg DAILY PO Last administered on 01/06/19 09:00; Admin Dose 81 MG; Start 12/13/18 at 19:30 Senna (Senokot) 1 tab BID PO Last administered on 01/06/19 20:53; Admin Dose 1 TAB; Start 12/17/18 at 21:00 Acetaminophen (Tylenol Tab) 650 mg Q6H PRN PO PAIN LEVEL 1-3 OR FEVER Last administered on 12/21/18 05:01; Admin Dose 650 MG; Start 12/17/18 at 15:00 Albuterol/ Ipratropium (Duoneb) 3 ml Q6H RESP THERAPY PRN HHN sob Last administered on 12/19/18 03:51; Admin Dose 3 ML; Start 12/17/18 at 09:00 Docusate Sodium (Colace) 100 mg Q12H PRN PO CONSTIPATION Last administered on 12/21/18 05:01; Admin Dose 100 MG; Start 12/17/18 at 21:00 Ferrous Sulfate (Feosol Liquid Cup) 300 mg BID GTB Last administered on 01/06/19 20:54; Admin Dose 300 MG; Start 12/17/18 at 21:00 Guaifenesin/ Dextromethorphan (Robitussin Dm Liquid Cup) 5 ml Q4H PRN PO cough Last administered on 12/24/18 21:16; Admin Dose 5 ML; Start 12/17/18 at 18:00 Linagliptin (Tradjenta) 5 mg DAILY GTB Last administered on 01/06/19 09:27; Admin Dose 5 MG; Start 12/17/18 at 09:00 Folic Acid (Folic Acid) 1 mg DAILY GTB Last administered on 01/06/19 09:25; Admin Dose 1 MG; Start 12/18/18 at 09:00 Metoclopramide HCl (Reglan) 5 mg Q8 PRN IV VOMITTING; Start 12/20/18 at 10:00 IV Flush (NS 10 ml) 10 ml AFTER DIALYSIS CATHETER ; Start 12/22/18 at 10:00 Voriconazole (Vfend) 200 mg BID PO Last administered on 01/06/19 20:54; Admin Dose 200 MG; Start 12/22/18 at 11:00 Magnesium Hydroxide (Milk Of Mag) 30 ml DAILY PRN PO CONSTIPATION; Start 12/22/18 at 17:00 Sodium Chloride (NS) -To prime the dialy... DIRECTED FOR HD PRN IV HD; Start 12/23/18 at 16:00 Amlodipine Besylate (Norvasc) 5 mg DAILY GTB Last administered on 01/06/19 09:26; Admin Dose 5 MG; Start 12/25/18 at 15:30 Polyethylene Glycol (Miralax) 17 gm DAILY GTB Last administered on 01/06/19 09:24; Admin Dose 17 GM; Start 12/27/18 at 09:00 Insulin Glargine (Lantus) 4 units DAILY@2000 SC Last administered on 01/06/19 20:58; Admin Dose 4 UNITS; Start 12/28/18 at 20:00 Miscellaneous Information 1 ea NOTE XX ; Start 12/28/18 at 19:00 Glucose (Glutose) 15 gm Q15M PRN PO DECREASED GLUCOSE; Start 12/28/18 at 19:00 Glucose (Glutose) 22.5 gm Q15M PRN PO DECREASED GLUCOSE; Start 12/28/18 at 19:00 Dextrose (D50w Syringe) 25 ml Q15M PRN IV DECREASED GLUCOSE; Start 12/28/18 at 19:00 Dextrose (D50w Syringe) 50 ml Q15M PRN IV DECREASED GLUCOSE; Start 12/28/18 at 19:00 Glucagon (Glucagen) 1 mg Q15M PRN IM DECREASED GLUCOSE; Start 12/28/18 at 19:00 Glucose (Glutose) 15 gm Q15M PRN BUCCAL DECREASED GLUCOSE; Start 12/28/18 at 19:00 Sevelamer Carbonate (Renvela) 1.6 gm TID NGT Last administered on 01/06/19at 20:53; Admin Dose 1.6 GM; Start 12/31/18 at 13:00 Metoclopramide HCl (Reglan) 5 mg Q8 PO Last administered on 01/06/19at 22:04; Admin Dose 5 MG; Start 01/02/19 at 07:00 Olanzapine (Zyprexa) 5 mg DAILY PO ; Start 01/07/19 at 09:00 JOSE RAUL ANDREWS MD Jan 07, 2019 05:52
[2019-01-07] MEDS: METOPROLOL 50 MG TAB GTB SCH ×2 (08:10→22:02)
[2019-01-07] MEDS: ASPIRIN (EC) 81 MG TAB PO SCH (08:11)
[2019-01-07] MEDS: AMLODIPINE 5 MG TAB GTB SCH (08:11)
[2019-01-07] MEDS: FERROUS SULFATE 60 MG/ML 5ML CUP GTB SCH ×2 (09:17→22:04)
[2019-01-07] MEDS: SEVELAMER CARBONATE 0.8 GM PKT NGT SCH ×3 (09:17→22:04)
[2019-01-07] MEDS: POLYETHYLENE GLYCOL 17 GM PACKET GTB SCH (09:17)
[2019-01-07] MEDS: SENNA TAB PO SCH ×2 (09:17→22:07)
[2019-01-07] MEDS: DOCUSATE SODIUM 10 MG/ML (10ML CUP) GTB SCH (09:17)
[2019-01-07] MEDS: MULTIVIT/CA CARB/B CMPLX/FA TAB GTB SCH (09:17)
[2019-01-07] MEDS: VORICONAZOLE 200 MG TAB PO SCH ×2 (09:17→22:02)
[2019-01-07] MEDS: LINAGLIPTIN 5 MG TABLET GTB SCH (09:18)
[2019-01-07] MEDS: LANSOPRAZOLE 30 MG CAP GTB SCH (09:18)
[2019-01-07] MEDS: FOLIC ACID 1 MG TAB GTB SCH (09:18)
[2019-01-07] MEDS: OLANZAPINE 5 MG TAB PO SCH (09:20)
--- NOTE | 2019-01-07 13:05 | CONS ---
Assessment/Plan Assessment/Plan Assessment/Plan (Daily) Hospital Course (Demo Recall) 83 yo female in ESRD on HD presents for melena and anemia and also found to have edematous Rt hand/wrist Interval Hx: No acute changes. Tolerating tube feeds at 30cc. No evidence of GI bleeding. 1. UGIB manifested through melena and anemia -no melena noted or GI bleeding noted by nursing staff -RESOLVED 2. Anemia, acute on chronic, acute likely due to blood loss in rt hand -No evidence of active GI bleeding, consider etiology of blood loss anemia to be from hematoma in hand -Fe wnl, TIBC low, Ferritin, folate, b12 high, FOB neg -likely due to chronic disease 3. ESRD on HD -Followed by nephrology 4. Hematoma of Rt hand and wrist -I and D drainage by Dr. Dean 11/17 -IMPROVED 5. Dysphagia -on tube feeds 6. DM2 7. HTN 8. H/O diastolic dysfunction heart failure 9. S/P EGD 11/18 10. Moderate gastritis with no bleeding noted. 11. Hospital acquired pneumonia -improved 12. Yeast in urine cx -cx 12/20 12. Emesis -no emesis in the last 24 hours per nursing staff Gastric biopsy results: Stomach, biopsy: -- Antral and oxyntic mucosa showing minimal plasma cell infiltration and small focus of intestinal metaplasia. -- No Helicobacter pylori is identified in Giemsa stain (positive control concurrently reviewed). -- No evidence of dysplasia or malignancy. 13. Cachexia Plan: Continue to monitor patient for Emesis,maintain aspiration precautions Try titrating tube feeds upto 35 cc/hr Give medications in small doses Reglan 5 mg prior to meals, low dose to due ESRD Continue present care Monitor HH closely and for active GI bleeding, Monitor patient's weight Consultation Date/Type/Reason Admit Date/Time Nov 16, 2018 at 05:51 Initial Consult Date 11/16/18 Requesting Provider: DYLON WALLS MD Date/Time of Note DATE: 01/07/19 TIME: 13:03 24 HR Interval Summary Constitutional: disoriented Exam/Review of Systems Exam Vitals Vital Signs Date Temp Pulse Resp B/P (MAP) Pulse Ox O2 O2 Flow FiO2 Time Delivery Rate 01/07/19 75 12:00 01/07/19 20 142/60 Room Air 08:45 (87) 01/07/19 97.9 99 08:33 01/04/19 21 14:49 Intake and Output 01/06/19 01/06/19 01/07/19 1515:00 23:00 07:00 IntakeIntake Total 500 ml BalanceBalance 500 ml Constitutional: alert, oriented, well developed Psych: no complaints, nl mood/affect Head: normocephalic, atraumatic Eyes: nl conjunctiva, EOMI, nl lids, nl sclera, PERRL ENMT: nl external ears & nose, nl lips & teeth, nl nasal mucosa & septum Neck: supple, non-tender Respiratory: clear to auscultation, normal air movement Cardiovascular: regular rate and rhythm, nl pulses Gastrointestinal: soft, nl liver, spleen, non-tender Musculoskeletal: nl extremities to inspection, nl gait and stance Extremities: normal pulses 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: DIGITAL PERFORMANCE ANALYST II-XII intact, nl mental status, nl speech, nl strength Skin: nl turgor; No rash or lesions Lymph: nl lymph nodes Results Result Diagram: 01/04/19 0541 01/04/19 0541 Results 24hrs Laboratory Tests Test 01/06/19 17:36 01/06/19 20:55 Bedside Glucose 171 166 Medications Medication Current Medications IV Flush (NS 3 ml) 3 ml PER PROTOCOL IV ; Start 11/16/18 at 09:00 Ondansetron HCl (Zofran Inj) 4 mg Q6H PRN IV NAUSEA AND/OR VOMITING Last administered on 12/31/18at 11:45; Admin Dose 4 MG; Start 11/16/18 at 09:00 Hydralazine HCl (Apresoline) 10 mg Q4H PRN IV ELEVATED BLOOD PRESSURE Last adm inistered on 12/22/18at 19:40; Admin Dose 10 MG; Start 11/17/18 at 10:30 Acetaminophen/ Hydrocodone Bitart ([place] (5/325)) 1 tab Q3H PRN PO MODERATE PAIN LEVEL 4-6 Last administered on 01/05/19at 21:18; Admin Dose 1 TAB; Start 11/17/18 at 14:30 Albumin Human 50 ml @ 100 mls/hr WITH DIALYSIS PRN IV SBP<90 Last administered on 01/05/19at 10:17; Admin Dose 100 MLS/HR; Start 11/18/18 at 14:30 Morphine Sulfate (morphine) 6 mg Q4H PRN PO SEVERE PAIN LEVEL 7-10 Last administered on 12/30/18 09:15; Admin Dose 6 MG; Start 11/18/18 at 23:00 Docusate Sodium (Colace Liquid Cup) 100 mg DAILY GTB Last administered on 01/07/19 09:17; Admin Dose 100 MG; Start 11/19/18 at 09:30 Multivit/Ca Carb/ B Cmplx/FA/Prenat (Kianna-Roque) 1 tab DAILY GTB Last administered on 01/07/19 09:17; Admin Dose 1 TAB; Start 11/24/18 at 09:00 Lansoprazole (Prevacid) 30 mg DAILY GTB Last administered on 01/07/19 09:18; Admin Dose 30 MG; Start 11/26/18 at 09:00 Acetaminophen (Tylenol Supp) 650 mg Q4H PRN [place] MILD PAIN(1-3) OR TEMP>38C Last administered on 11/26/18 08:32; Admin Dose 650 MG; Start 11/26/18 at 08:30 Epoetin Michael (Epogen (Esrd)) 4,000 units MoWeFr@17 SC Last administered on 01/05/19 17:35; Admin Dose 4,000 UNITS; Start 12/06/18 at 17:00 Hydralazine HCl (Apresoline) 50 mg Q8 PO Last administered on 01/07/19 05:49; Admin Dose 50 MG; Start 12/07/18 at 22:00 Metoprolol Tartrate (Lopressor) 100 mg BID GTB Last administered on 01/06/19 20:54; Admin Dose 100 MG; Start 12/13/18 at 21:00 Aspirin (Halfprin) 81 mg DAILY PO Last administered on 01/06/19 09:00; Admin Dose 81 MG; Start 12/13/18 at 19:30 Senna (Senokot) 1 tab BID PO Last administered on 01/07/19 09:17; Admin Dose 1 TAB; Start 12/17/18 at 21:00 Acetaminophen (Tylenol Tab) 650 mg Q6H PRN PO PAIN LEVEL 1-3 OR FEVER Last administered on 12/21/18 05:01; Admin Dose 650 MG; Start 12/17/18 at 15:00 Albuterol/ Ipratropium (Duoneb) 3 ml Q6H RESP THERAPY PRN HHN sob Last administered on 12/19/18 03:51; Admin Dose 3 ML; Start 12/17/18 at 09:00 Docusate Sodium (Colace) 100 mg Q12H PRN PO CONSTIPATION Last administered on 12/21/18 05:01; Admin Dose 100 MG; Start 12/17/18 at 21:00 Ferrous Sulfate (Feosol Liquid Cup) 300 mg BID GTB Last administered on 01/07/19 09:17; Admin Dose 300 MG; Start 12/17/18 at 21:00 Guaifenesin/ Dextromethorphan (Robitussin Dm Liquid Cup) 5 ml Q4H PRN PO cough Last administered on 12/24/18 21:16; Admin Dose 5 ML; Start 12/17/18 at 18:00 Linagliptin (Tradjenta) 5 mg DAILY GTB Last administered on 01/07/19 09:18; Admin Dose 5 MG; Start 12/17/18 at 09:00 Folic Acid (Folic Acid) 1 mg DAILY GTB Last administered on 01/07/19 09:18; Admin Dose 1 MG; Start 12/18/18 at 09:00 Metoclopramide HCl (Reglan) 5 mg Q8 PRN IV VOMITTING; Start 12/20/18 at 10:00 IV Flush (NS 10 ml) 10 ml AFTER DIALYSIS CATHETER ; Start 12/22/18 at 10:00 Voriconazole (Vfend) 200 mg BID PO Last administered on 01/07/19 09:17; Admin Dose 200 MG; Start 12/22/18 at 11:00 Magnesium Hydroxide (Milk Of Mag) 30 ml DAILY PRN PO CONSTIPATION; Start 12/22/18 at 17:00 Sodium Chloride (NS) -To prime the dialy... DIRECTED FOR HD PRN IV HD; Start 12/23/18 at 16:00 Amlodipine Besylate (Norvasc) 5 mg DAILY GTB Last administered on 01/06/19 0 9:26; Admin Dose 5 MG; Start 12/25/18 at 15:30 Polyethylene Glycol (Miralax) 17 gm DAILY GTB Last administered on 01/07/19 09:17; Admin Dose 17 GM; Start 12/27/18 at 09:00 Insulin Glargine (Lantus) 4 units DAILY@2000 SC Last administered on 01/06/19at 20:58; Admin Dose 4 UNITS; Start 12/28/18 at 20:00 Miscellaneous Information 1 ea NOTE XX ; Start 12/28/18 at 19:00 Glucose (Glutose) 15 gm Q15M PRN PO DECREASED GLUCOSE; Start 12/28/18 at 19:00 Glucose (Glutose) 22.5 gm Q15M PRN PO DECREASED GLUCOSE; Start 12/28/18 at 19:00 Dextrose (D50w Syringe) 25 ml Q15M PRN IV DECREASED GLUCOSE; Start 12/28/18 at 19:00 Dextrose (D50w Syringe) 50 ml Q15M PRN IV DECREASED GLUCOSE; Start 12/28/18 at 19:00 Glucagon (Glucagen) 1 mg Q15M PRN IM DECREASED GLUCOSE; Start 12/28/18 at 19:00 Glucose (Glutose) 15 gm Q15M PRN BUCCAL DECREASED GLUCOSE; Start 12/28/18 at 19:00 Sevelamer Carbonate (Renvela) 1.6 gm TID NGT Last administered on 01/07/19at 09:17; Admin Dose 1.6 GM; Start 12/31/18 at 13:00 Metoclopramide HCl (Reglan) 5 mg Q8 PO Last administered on 01/07/19at 05:49; Admin Dose 5 MG; Start 01/02/19 at 07:00 Olanzapine (Zyprexa) 5 mg DAILY PO Last administered on 01/07/19at 09:20; Admin Dose 5 MG; Start 01/07/19 at 09:00 CHRISS WELCH MD Jan 07, 2019 13:05
--- NOTE | 2019-01-07 13:59 | RADRPT ---
Vent Rate: 117 bpm RR Interval: 0 msec [place] Interval: 0 msec QRS Duration: 90 msec QT Interval: 328 msec QTC Interval: 457 msec P-R-T [place]: 0 - 63 - 16 degrees Atrial fibrillation with rapid ventricular response Nonspecific ST abnormality , probably digitalis effect Abnormal ECG Electronically Signed By: David Edge
--- NOTE | 2019-01-07 15:02 | CONS ---
Assessment/Plan Assessment/Plan Hospital Course (Demo Recall) 83 y/o with Hospital Course (Demo Recall) 1. End-stage renal disease on hemodialysis. 2. Gastrointestinal bleed with melena.resolved 3. Hypertension. 4. Diabetes. 5. Right hand swelling, s/p I and D on 11/17/18 6. History of falls. 7. Vascular dementia. 8. History of sepsis with VRE. 9. Dysphagia, status post G-tube. 10. History of hip fracture. 11. Thrombocytopenia. 12. Atherosclerotic heart disease. 13. Pneumonia left side 14. Anemia 15 YEAST BACTERIMIA LIKELY DUE TO UTI resolves 16 Paroxsymal AFib now in sinus Assessment/Plan (Daily) - Hd MWF, Hd today - cw with permacath -avoid nephrotoxic drugs -HD MWFr -c/w epogen - Aspiration precautions -? hold off sedatives/pain meds DC planning Consultation Date/Type/Reason Admit Date/Time Nov 16, 2018 at 05:51 Initial Consult Date 11/16/18 Requesting Provider: DYLON WALLS MD Date/Time of Note DATE: 01/07/19 TIME: 15:01 24 HR Interval Summary Free Text/Dictation s/p Hd today Exam/Review of Systems Exam Vitals Vital Signs Date Temp Pulse Resp B/P (MAP) Pulse Ox O2 O2 Flow FiO2 Time Delivery Rate 01/07/19 70 12:15 01/07/19 20 142/60 Room Air 08:45 (87) 01/07/19 97.9 99 08:33 01/04/19 21 14:49 Intake and Output 01/06/19 01/06/19 01/07/19 1515:00 23:00 07:00 IntakeIntake Total 500 ml BalanceBalance 500 ml Exam left permactah little letahrgic CTAB Results Result Diagram: 01/04/19 0541 01/04/19 0541 Results 24hrs Laboratory Tests Test 01/06/19 17:36 01/06/19 20:55 Bedside Glucose 171 166 Medications Medication Current Medications IV Flush (NS 3 ml) 3 ml PER PROTOCOL IV ; Start 11/16/18 at 09:00 Ondansetron HCl (Zofran Inj) 4 mg Q6H PRN IV NAUSEA AND/OR VOMITING Last administered on 12/31/18at 11:45; Admin Dose 4 MG; Start 11/16/18 at 09:00 Hydralazine HCl (Apresoline) 10 mg Q4H PRN IV ELEVATED BLOOD PRESSURE Last administered on 12/22/18 19:40; Admin Dose 10 MG; Start 11/17/18 at 10:30 Acetaminophen/ Hydrocodone Bitart ([place] (5/325)) 1 tab Q3H PRN PO MODERATE PAIN LEVEL 4-6 Last administered on 01/05/19 21:18; Admin Dose 1 TAB; Start 11/17/18 at 14:30 Albumin Human 50 ml @ 100 mls/hr WITH DIALYSIS PRN IV SBP<90 Last administered on 01/05/19 10:17; Admin Dose 100 MLS/HR; Start 11/18/18 at 14:30 Morphine Sulfate (morphine) 6 mg Q4H PRN PO SEVERE PAIN LEVEL 7-10 Last administered on 12/30/18 09:15; Admin Dose 6 MG; Start 11/18/18 at 23:00 Docusate Sodium (Colace Liquid Cup) 100 mg DAILY GTB Last administered on 01/07/19 09:17; Admin Dose 100 MG; Start 11/19/18 at 09:30 Multivit/Ca Carb/ B Cmplx/FA/Prenat (Kianna-Roque) 1 tab DAILY GTB Last administered on 01/07/19 09:17; Admin Dose 1 TAB; Start 11/24/18 at 09:00 Lansoprazole (Prevacid) 30 mg DAILY GTB Last administered on 01/07/19 09:18; Admin Dose 30 MG; Start 11/26/18 at 09:00 Acetaminophen (Tylenol Supp) 650 mg Q4H PRN [place] MILD PAIN(1-3) OR TEMP>38C Last administered on 11/26/18 08:32; Admin Dose 650 MG; Start 11/26/18 at 08:30 Epoetin Michael (Epogen (Esrd)) 4,000 units MoWeFr@17 SC Last administered on 01/05/19 17:35; Admin Dose 4,000 UNITS; Start 12/06/18 at 17:00 Hydralazine HCl (Apresoline) 50 mg Q8 PO Last administered on 01/07/19 13:51; Admin Dose 50 MG; Start 12/07/18 at 22:00 Metoprolol Tartrate (Lopressor) 100 mg BID GTB Last administered on 01/06/19 20:54; Admin Dose 100 MG; Start 12/13/18 at 21:00 Aspirin (Halfprin) 81 mg DAILY PO Last administered on 01/06/19 09:00; Admin Dose 81 MG; Start 12/13/18 at 19:30 Senna (Senokot) 1 tab BID PO Last administered on 01/07/19 09:17; Admin Dose 1 TAB; Start 12/17/18 at 21:00 Acetaminophen (Tylenol Tab) 650 mg Q6H PRN PO PAIN LEVEL 1-3 OR FEVER Last administered on 12/21/18 05:01; Admin Dose 650 MG; Start 12/17/18 at 15:00 Albuterol/ Ipratropium (Duoneb) 3 ml Q6H RESP THERAPY PRN HHN sob Last adm inistered on 12/19/18 03:51; Admin Dose 3 ML; Start 12/17/18 at 09:00 Docusate Sodium (Colace) 100 mg Q12H PRN PO CONSTIPATION Last administered on 12/21/18 05:01; Admin Dose 100 MG; Start 12/17/18 at 21:00 Ferrous Sulfate (Feosol Liquid Cup) 300 mg BID GTB Last administered on 01/07/19 09:17; Admin Dose 300 MG; Start 12/17/18 at 21:00 Guaifenesin/ Dextromethorphan (Robitussin Dm Liquid Cup) 5 ml Q4H PRN PO cough Last administered on 12/24/18 21:16; Admin Dose 5 ML; Start 12/17/18 at 18:00 Linagliptin (Tradjenta) 5 mg DAILY GTB Last administered on 01/07/19 09:18; Admin Dose 5 MG; Start 12/17/18 at 09:00 Folic Acid (Folic Acid) 1 mg DAILY GTB Last administered on 01/07/19 09:18; Admin Dose 1 MG; Start 12/18/18 at 09:00 Metoclopramide HCl (Reglan) 5 mg Q8 PRN IV VOMITTING; Start 12/20/18 at 10:00 IV Flush (NS 10 ml) 10 ml AFTER DIALYSIS CATHETER ; Start 12/22/18 at 10:00 Voriconazole (Vfend) 200 mg BID PO Last administered on 01/07/19 09:17; Admin Dose 200 MG; Start 12/22/18 at 11:00 Magnesium Hydroxide (Milk Of Mag) 30 ml DAILY PRN PO CONSTIPATION; Start 12/22/18 at 17:00 Sodium Chloride (NS) -To prime the dialy... DIRECTED FOR HD PRN IV HD; Start 12/23/18 at 16:00 Amlodipine Besylate (Norvasc) 5 mg DAILY GTB Last administered on 01/06/19 09:26; Admin Dose 5 MG; Start 12/25/18 at 15:30 Polyethylene Glycol (Miralax) 17 gm DAILY GTB Last administered on 01/07/19 09:17; Admin Dose 17 GM; Start 12/27/18 at 09:00 Insulin Glargine (Lantus) 4 units DAILY@2000 SC Last administered on 01/06/19 20:58; Admin Dose 4 UNITS; Start 12/28/18 at 20:00 Miscellaneous Information 1 ea NOTE XX ; Start 12/28/18 at 19:00 Glucose (Glutose) 15 gm Q15M PRN PO DECREASED GLUCOSE; Start 12/28/18 at 19:00 Glucose (Glutose) 22.5 gm Q15M PRN PO DECREASED GLUCOSE; Start 12/28/18 at 19:0 0 Dextrose (D50w Syringe) 25 ml Q15M PRN IV DECREASED GLUCOSE; Start 12/28/18 at 19:00 Dextrose (D50w Syringe) 50 ml Q15M PRN IV DECREASED GLUCOSE; Start 12/28/18 at 19:00 Glucagon (Glucagen) 1 mg Q15M PRN IM DECREASED GLUCOSE; Start 12/28/18 at 19:00 Glucose (Glutose) 15 gm Q15M PRN BUCCAL DECREASED GLUCOSE; Start 12/28/18 at 19:00 Sevelamer Carbonate (Renvela) 1.6 gm TID NGT Last administered on 01/07/19 13:51; Admin Dose 1.6 GM; Start 12/31/18 at 13:00 Metoclopramide HCl (Reglan) 5 mg Q8 PO Last administered on 01/07/19 13:50; Admin Dose 5 MG; Start 01/02/19 at 07:00 Olanzapine (Zyprexa) 5 mg DAILY PO Last administered on 01/07/19at 09:20; Admin Dose 5 MG; Start 01/07/19 at 09:00 JOSE RAUL ANDREWS MD Jan 07, 2019 15:02
--- NOTE | 2019-01-07 15:26 | CONS ---
Consult Date/Type/Reason Admit Date/Time Nov 16, 2018 at 05:51 Initial Consult Date 11/16/18 Type of Consultation: cv Requesting Provider: DYLON WALLS MD Date/Time of Note DATE: 01/07/19 TIME: 15:25 Subjective Cardiology follow up note Sl DW/ Staff . Patient is off tele now. pt has been less agitated now no report of any chest pain or pressure or palpitations but pt is a very poor historian Events noted. 12/13/18: Patient went into atrial fibrillation rapid ventricular response during hemodialysis . Patient has been transferred to telemetry and converted back to sinus rhythm remains in sinus rhythm s/p I/D 11/17 EGD 11.18.18 O: General: Elderly frail female in no acute distress HEENT: NC/AT. Eyes are closed NECK: NO JVD. no stridor. CV: RRR. systolic murmur; no gallop or rubs. PULM: no wheezing or rhonchi. GI: SOFT, NT, ND, no rebound or guarding neuro: Comfortably sleeping now Psych: calm now rectal: deferred Objective Vitals Vital Signs Date Temp Pulse Resp B/P (MAP) Pulse Ox O2 O2 Flow FiO2 Time Delivery Rate 01/07/19 70 12:15 01/07/19 20 142/60 Room Air 08:45 (87) 01/07/19 97.9 99 08:33 01/04/19 21 14:49 Intake and Output 01/06/19 01/06/19 01/07/19 1515:00 23:00 07:00 IntakeIntake Total 500 ml BalanceBalance 500 ml Results/Medications Result Diagram: 01/04/19 0541 01/04/19 0541 Results 24 hrs Laboratory Tests Test 01/06/19 17:36 01/06/19 20:55 Bedside Glucose 171 166 Home Meds Reported Medications Sennosides* (Senna Lax*) 8.6 Mg Tablet, 1 TAB PO BID, TAB 11/16/18 Sevelamer Carbonate* (Renvela*) 0.8 Gm Powd.pack, 0.8 GM PO WITH MEALS, PACKET 11/16/18 Lansoprazole* (Lansoprazole*) 30 Mg Capsule.dr, 30 MG PO QAM, CAP 11/16/18 Hydralazine Hcl* (Hydralazine Hcl*) 25 Mg Tab, 25 MG PO Q8, #90 TAB 11/16/18 Ferrous Sulfate* (Ferrous Sulfate*) 325 Mg Tabec, 325 MG PO BID for anemia, TAB 11/16/18 Valproate Sodium (Valproic Acid) 250 Mg/5 Ml Solution, 250 MG PO Q8, ML 11/16/18 Insulin Aspart* (Novolog Insulin Pen*) 100 Unit/Ml Soln, 0 SC .SLIDING SCALE AC, EA IF BS 160-200=2 UNITS,201-250=4 UNITS,251-300=8 UNITS,301-350=12 UNITS;351-400=16 UNITS THEN CALL MD. 10/16/18 Ondansetron Hcl* (Zofran*) 4 Mg Tab, 4 MG GTB Q4H PRN for NAUSEA AND OR VOMITING, TAB 10/16/18 Linagliptin (TRADJENTA) 5 Mg Tablet, 5 MG GTB DAILY, TAB 10/16/18 Quetiapine Fumarate* (Seroquel*) 25 Mg Tablet, 25 MG GTB BID, #60 TAB 10/16/18 [Nephro-Roque] No Conflict Check, 0.8 MG GTB DAILY 10/16/18 Polyethylene Glycol* (Miralax*) 17 Gm Powd.pack, 17 GM GTB Q24H, #30 PACKET 10/16/18 Metoprolol Tartrate* (Lopressor*) 50 Mg Tab, 50 MG GTB DAILY, #60 TAB Q MON,WED,FRI,SUN,HOLD FOR SBP<[address]60 10/16/18 Metoprolol Tartrate* (Lopressor*) 50 Mg Tab, 50 MG GTB BID, #60 TAB QTUE,ANDREW,SAT,HOLD FOR SBP<[address]60 10/16/18 Linaclotide (LINZESS) 145 Mcg Capsule, 145 MCG GTB DAILY, #30 CAP 10/16/18 Ipratropium-Albuterol (Ipratropium-Albuterol) 0.5-3 Mg/3 Ml Ampul.neb, 3 ML INHALATION Q6, #30 VIAL FOR 14 DAYS,STOP DATE 10/17/18 10/16/18 Hydralazine Hcl* (Hydralazine Hcl*) 25 Mg Tab, 25 MG GTB DAILY, #60 TAB Q TUE,ANDREW,SAT,HOLD IF SBP<[address]60 10/16/18 Folic Acid* (Folic Acid*) 1 Mg Tablet, 1 MG GTB DAILY, TAB 10/16/18 Docusate Sodium* (Colace*) 100 Mg Capsule, 100 MG GTB DAILY, #30 CAP 10/16/18 Lorazepam* (Lorazepam*) 1 Mg Tablet, 1 MG GTB HS PRN for ANXIETY, #30 TAB Q TUE,ANDREW,SAT 10/16/18 Amlodipine Besylate* (Norvasc*) 5 Mg Tablet, 5 MG GTB BID, TAB TAKE Q TUE,ANDREW,SAT FOR HTN, HOLD FOR SBP<[address]60 10/16/18 Acetaminophen* (Acetaminophen*) 650 Mg Tablet, 650 MG GTB Q6H PRN for PAIN LEVEL 1-08/18, #30 TAB 10/16/18 Medications Current Medications IV Flush (NS 3 ml) 3 ml PER PROTOCOL IV ; Start 11/16/18 at 09:00 Ondansetron HCl (Zofran Inj) 4 mg Q6H PRN IV NAUSEA AND/OR VOMITING Last administered on 12/31/18 11:45; Admin Dose 4 MG; Start 11/16/18 at 09:00 Hydralazine HCl (Apresoline) 10 mg Q4H PRN IV ELEVATED BLOOD PRESSURE Last ad ministered on 12/22/18 19:40; Admin Dose 10 MG; Start 11/17/18 at 10:30 Acetaminophen/ Hydrocodone Bitart ([place] (5/325)) 1 tab Q3H PRN PO MODERATE PAIN LEVEL 4-6 Last administered on 01/05/19 21:18; Admin Dose 1 TAB; Start 11/17/18 at 14:30 Albumin Human 50 ml @ 100 mls/hr WITH DIALYSIS PRN IV SBP<90 Last administered on 01/05/19 10:17; Admin Dose 100 MLS/HR; Start 11/18/18 at 14:30 Morphine Sulfate (morphine) 6 mg Q4H PRN PO SEVERE PAIN LEVEL 7-10 Last administered on 12/30/18 09:15; Admin Dose 6 MG; Start 11/18/18 at 23:00 Docusate Sodium (Colace Liquid Cup) 100 mg DAILY GTB Last administered on 01/07/19 09:17; Admin Dose 100 MG; Start 11/19/18 at 09:30 Multivit/Ca Carb/ B Cmplx/FA/Prenat (Kianna-Roque) 1 tab DAILY GTB Last administered on 01/07/19 09:17; Admin Dose 1 TAB; Start 11/24/18 at 09:00 Lansoprazole (Prevacid) 30 mg DAILY GTB Last administered on 01/07/19 09:18; Admin Dose 30 MG; Start 11/26/18 at 09:00 Acetaminophen (Tylenol Supp) [address] MILD PAIN(1-3) OR TEMP>38C Last administered on 11/26/18 08:32; Admin Dose 650 MG; Start 11/26/18 at 08:30 Epoetin Michael (Epogen (Esrd)) 4,000 units MoWeFr@17 SC Last administered on 01/05/19 17:35; Admin Dose 4,000 UNITS; Start 12/06/18 at 17:00 Hydralazine HCl (Apresoline) 50 mg Q8 PO Last administered on 01/07/19 13:51; Admin Dose 50 MG; Start 12/07/18 at 22:00 Metoprolol Tartrate (Lopressor) 100 mg BID GTB Last administered on 01/06/19 20:54; Admin Dose 100 MG; Start 12/13/18 at 21:00 Aspirin (Halfprin) 81 mg DAILY PO Last administered on 01/06/19 09:00; Admin Dose 81 MG; Start 12/13/18 at 19:30 Senna (Senokot) 1 tab BID PO Last administered on 01/07/19 09:17; Admin Dose 1 TAB; Start 12/17/18 at 21:00 Acetaminophen (Tylenol Tab) 650 mg Q6H PRN PO PAIN LEVEL 1-3 OR FEVER Last administered on 12/21/18 05:01; Admin Dose 650 MG; Start 12/17/18 at 15:00 Albuterol/ Ipratropium (Duoneb) 3 ml Q6H RESP THERAPY PRN HHN sob Last administered on 12/19/18 03:51; Admin Dose 3 ML; Start 12/17/18 at 09:00 Docusate Sodium (Colace) 100 mg Q12H PRN PO CONSTIPATION Last administered on 12/21/18 05:01; Admin Dose 100 MG; Start 12/17/18 at 21:00 Ferrous Sulfate (Feosol Liquid Cup) 300 mg BID GTB Last administered on 01/07/19 09:17; Admin Dose 300 MG; Start 12/17/18 at 21:00 Guaifenesin/ Dextromethorphan (Robitussin Dm Liquid Cup) 5 ml Q4H PRN PO cough Last administered on 12/24/18 21:16; Admin Dose 5 ML; Start 12/17/18 at 18:00 Linagliptin (Tradjenta) 5 mg DAILY GTB Last administered on 01/07/19 09:18; Admin Dose 5 MG; Start 12/17/18 at 09:00 Folic Acid (Folic Acid) 1 mg DAILY GTB Last administered on 01/07/19 09:18; Admin Dose 1 MG; Start 12/18/18 at 09:00 Metoclopramide HCl (Reglan) 5 mg Q8 PRN IV VOMITTING; Start 12/20/18 at 10:00 IV Flush (NS 10 ml) 10 ml AFTER DIALYSIS CATHETER ; Start 12/22/18 at 10:00 Voriconazole (Vfend) 200 mg BID PO Last administered on 01/07/19 09:17; Admin Dose 200 MG; Start 12/22/18 at 11:00 Magnesium Hydroxide (Milk Of Mag) 30 ml DAILY PRN PO CONSTIPATION; Start 12/22/18 at 17:00 Sodium Chloride (NS) -To prime the dialy... DIRECTED FOR HD PRN IV HD; Start 12/23/18 at 16:00 Amlodipine Besylate (Norvasc) 5 mg DAILY GTB Last administered on 01/06/19 09:26; Admin Dose 5 MG; Start 12/25/18 at 15:30 Polyethylene Glycol (Miralax) 17 gm DAILY GTB Last administered on 01/07/19 09:17; Admin Dose 17 GM; Start 12/27/18 at 09:00 Insulin Glargine (Lantus) 4 units DAILY@2000 SC Last administered on 01/06/19 20:58; Admin Dose 4 UNITS; Start 12/28/18 at 20:00 Miscellaneous Information 1 ea NOTE XX ; Start 12/28/18 at 19:00 Glucose (Glutose) 15 gm Q15M PRN PO DECREASED GLUCOSE; Start 12/28/18 at 19:00 Glucose (Glutose) 22.5 gm Q15M PRN PO DECREASED GLUCOSE; Start 12/28/18 at 19:00 Dextrose (D50w Syringe) 25 ml Q15M PRN IV DECREASED GLUCOSE; Start 12/28/18 at 19:00 Dextrose (D50w Syringe) 50 ml Q15M PRN IV DECREASED GLUCOSE; Start 12/28/18 at 19:00 Glucagon (Glucagen) 1 mg Q15M PRN IM DECREASED GLUCOSE; Start 12/28/18 at 19:00 Glucose (Glutose) 15 gm Q15M PRN BUCCAL DECREASED GLUCOSE; Start 12/28/18 at 19:00 Sevelamer Carbonate (Renvela) 1.6 gm TID NGT Last administered on 01/07/19at 13:51; Admin Dose 1.6 GM; Start 12/31/18 at 13:00 Metoclopramide HCl (Reglan) 5 mg Q8 PO Last administered on 01/07/19at 13:50; Admin Dose 5 MG; Start 01/02/19 at 07:00 Olanzapine (Zyprexa) 5 mg DAILY PO Last administered on 01/07/19at 09:20; Admin Dose 5 MG; Start 01/07/19 at 09:00 Assessment/Plan Hospital Course (Demo Recall) P-atrial fibrillation rapid ventricular response: Currently back in sinus rhythm fungemia /fungal urinary tract infection Status post right hand hematoma: Status post I&D Renal failure on dialysis Hypertension Dementia Anemia Possible GI bleed: Status post EGD AI Recommendations: pt is not on full anticoagulation due to the fall risk as well as anemia cont beta-farrah Dialysis as per renal team Neuro workup and treatment as per internal medicine Antibiotic as per ID and internal medicine asa for now and monitor Thank you for his referral. We will continue to follow along with you as needed basis CHRISTEN ESCOBEDO MD [facility] CHRISTEN ESCOBEDO MD Jan 07, 2019 15:26
--- NOTE | 2019-01-07 19:32 | PN ---
DATE: 01/07/2019 SUBJECTIVE: The patient was seen, appears to be comfortable and anxious. PHYSICAL EXAMINATION: VITAL SIGNS: Temperature is 97.9, pulse is 70, respirations 20, blood pressure 142/60, saturation 99 % on room air. GENERAL: In no acute distress, pale. HEENT: Normocephalic, atraumatic. CARDIOVASCULAR: S1, S2, regular rate. LUNGS: Clear. ABDOMEN: Soft. G-tube in place. EXTREMITIES: No clubbing, cyanosis or edema. LABORATORY DATA: No new labs. Labs on 01/04/2019 were reviewed. Last glucose level 166, 171 and 10 0. MEDICATIONS: 1. Zyprexa 5 mg daily. 2. Reglan 5 mg q.8. 3. Renvela 1.6 t.i.d. 4. Lantus 4 units at night. 5. Currently still on voriconazole 200 b.i.d. No other antibiotics. All other meds were reviewed. ASSESSMENT AND PLAN: This is an 83-year-old [place] female with end-stage renal disease, advanced d ementia, ASCVD, status post bacteremia, fungemia, UTI, status post evacuation of right hand hematoma, treated briefly for aspiration. 1. Respiratory. Stable, status post Merrem, clinically stable. Saturation is 99% on room air. 2. Hypertension, controlled. 3. End-stage renal disease. Dialysis per Dr. Stringer, 3 times a week. 4. Anemia. Continue Epogen. Check H and H in the a.m. 5. Psychiatric disorder. Remains on Zyprexa. May increase dose. 6. Diabetes mellitus. Glucose levels are in the 100s. Continue Levemir and Tradjenta. 7. Urinary tract infection, on Vfend. 8. Mood disorder. 9. Awaiting placement. The patient remains close to the nursing station, be monitored closely, off 1:1 sitter. We will foll ow. Dictated By: DYLON HULL/MADAN Conf#: [id number] DID#: [id number]
--- NOTE | 2019-01-07 19:51 | CONS ---
Assessment/Plan Assessment/Plan Hospital Course (Demo Recall) 1145 No events, awake, looks comfortable Antimicrobials: none Blood culture repeated on November 29 grew Dominique glabrata blood cultures since December 01 that were drawn from permacath negative blood culture on December 03 negative, urine culture growing C glabrata Indwelling: Left chest permacath, PEG Physical examination: Chronically ill-appearing elderly woman who is awake, confused, in no distress. Head atraumatic normocephalic. Neck is supple. Chest rise symmetrical breath sounds diminished bases. Heart: S1-S2. Abdomen soft bowel sounds present, right upper extremity Armani wrapped Assessment: 1. S/p recurrent aspiration event 2. Status post UTI==> T glabrata 3. S/p Fungemia secondary to urinary tract infection 4. Right hand hematoma, status post I&D 11/17/18 5. Status post VRE bacteremia/new Pcath 6. End-stage renal disease, hemodialysis dependent 7. Failure to thrive 8. Diabetes 9. Anemia 10. P Afib Plan: Stable, completed abx, continue aspiration precautions, reculture prn Consultation Date/Type/Reason Admit Date/Time Nov 16, 2018 at 05:51 Initial Consult Date 11/16/18 Type of Consult id Requesting Provider: DYLON WALLS MD Date/Time of Note DATE: 01/07/19 TIME: 19:50 Exam/Review of Systems Exam Vitals Vital Signs Date Temp Pulse Resp B/P (MAP) Pulse Ox O2 O2 Flow FiO2 Time Delivery Rate 01/07/19 70 12:15 01/07/19 20 142/60 Room Air 08:45 (87) 01/07/19 97.9 99 08:33 01/04/19 21 14:49 Intake and Output 01/06/19 01/06/19 01/07/19 1515:00 23:00 07:00 IntakeIntake Total 500 ml BalanceBalance 500 ml Results Result Diagram: 01/04/19 0541 01/04/19 0541 Results 24hrs Laboratory Tests Test 01/06/19 20:55 Bedside Glucose 166 Medications Medication Current Medications IV Flush (NS 3 ml) 3 ml PER PROTOCOL IV ; Start 11/16/18 at 09:00 Ondansetron HCl (Zofran Inj) 4 mg Q6H PRN IV NAUSEA AND/OR VOMITING Last administered on 12/31/18at 11:45; Admin Dose 4 MG; Start 11/16/18 at 09:00 Hydralazine HCl (Apresoline) 10 mg Q4H PRN IV ELEVATED BLOOD PRESSURE Last administered on 12/22/18 19:40; Admin Dose 10 MG; Start 11/17/18 at 10:30 Acetaminophen/ Hydrocodone Bitart ([place] (5/325)) 1 tab Q3H PRN PO MODERATE PAIN LEVEL 4-6 Last administered on 01/05/19 21:18; Admin Dose 1 TAB; Start 11/17/18 at 14:30 Albumin Human 50 ml @ 100 mls/hr WITH DIALYSIS PRN IV SBP<90 Last administered on 01/05/19 10:17; Admin Dose 100 MLS/HR; Start 11/18/18 at 14:30 Morphine Sulfate (morphine) 6 mg Q4H PRN PO SEVERE PAIN LEVEL 7-10 Last administered on 12/30/18 09:15; Admin Dose 6 MG; Start 11/18/18 at 23:00 Docusate Sodium (Colace Liquid Cup) 100 mg DAILY GTB Last administered on 01/07/19 09:17; Admin Dose 100 MG; Start 11/19/18 at 09:30 Multivit/Ca Carb/ B Cmplx/FA/Prenat (Kianna-Roque) 1 tab DAILY GTB Last administered on 01/07/19 09:17; Admin Dose 1 TAB; Start 11/24/18 at 09:00 Lansoprazole (Prevacid) 30 mg DAILY GTB Last administered on 01/07/19 09:18; Admin Dose 30 MG; Start 11/26/18 at 09:00 Acetaminophen (Tylenol Supp) 650 mg Q4H PRN [place] MILD PAIN(1-3) OR TEMP>38C Last administered on 11/26/18 08:32; Admin Dose 650 MG; Start 11/26/18 at 08:30 Hydralazine HCl (Apresoline) 50 mg Q8 PO Last administered on 01/07/19 13:51; Admin Dose 50 MG; Start 12/07/18 at 22:00 Metoprolol Tartrate (Lopressor) 100 mg BID GTB Last administered on 01/06/19 20:54; Admin Dose 100 MG; Start 12/13/18 at 21:00 Aspirin (Halfprin) 81 mg DAILY PO Last administered on 01/06/19 09:00; Admin Dose 81 MG; Start 12/13/18 at 19:30 Senna (Senokot) 1 tab BID PO Last administered on 01/07/19 09:17; Admin Dose 1 TAB; Start 12/17/18 at 21:00 Acetaminophen (Tylenol Tab) 650 mg Q6H PRN PO PAIN LEVEL 1-3 OR FEVER Last administered on 12/21/18 05:01; Admin Dose 650 MG; Start 12/17/18 at 15:00 Albuterol/ Ipratropium (Duoneb) 3 ml Q6H RESP THERAPY PRN HHN sob Last administered on 12/19/18 03:51; Admin Dose 3 ML; Start 12/17/18 at 09:00 Docusate Sodium (Colace) 100 mg Q12H PRN PO CONSTIPATION Last administered on 12/21/18 05:01; Admin Dose 100 MG; Start 12/17/18 at 21:00 Ferrous Sulfate (Feosol Liquid Cup) 300 mg BID GTB Last administered on 01/07/19 09:17; Admin Dose 300 MG; Start 12/17/18 at 21:00 Guaifenesin/ Dextromethorphan (Robitussin Dm Liquid Cup) 5 ml Q4H PRN PO cough Last administered on 12/24/18 21:16; Admin Dose 5 ML; Start 12/17/18 at 18:00 Linagliptin (Tradjenta) 5 mg DAILY GTB Last administered on 01/07/19 09:18; Admin Dose 5 MG; Start 12/17/18 at 09:00 Folic Acid (Folic Acid) 1 mg DAILY GTB Last administered on 01/07/19 09:18; Admin Dose 1 MG; Start 12/18/18 at 09:00 Metoclopramide HCl (Reglan) 5 mg Q8 PRN IV VOMITTING; Start 12/20/18 at 10:00 IV Flush (NS 10 ml) 10 ml AFTER DIALYSIS CATHETER ; Start 12/22/18 at 10:00 Voriconazole (Vfend) 200 mg BID PO Last administered on 01/07/19 09:17; Admin Dose 200 MG; Start 12/22/18 at 11:00 Magnesium Hydroxide (Milk Of Mag) 30 ml DAILY PRN PO CONSTIPATION; Start 12/22/18 at 17:00 Sodium Chloride (NS) -To prime the dialy... DIRECTED FOR HD PRN IV HD; Start 12/23/18 at 16:00 Amlodipine Besylate (Norvasc) 5 mg DAILY GTB Last administered on 01/06/19 09:26; Admin Dose 5 MG; Start 12/25/18 at 15:30 Polyethylene Glycol (Miralax) 17 gm DAILY GTB Last administered on 01/07/19 09:17; Admin Dose 17 GM; Start 12/27/18 at 09:00 Insulin Glargine (Lantus) 4 units DAILY@2000 SC Last administered on 01/06/19 20:58; Admin Dose 4 UNITS; Start 12/28/18 at 20:00 Miscellaneous Information 1 ea NOTE XX ; Start 12/28/18 at 19:00 Glucose (Glutose) 15 gm Q15M PRN PO DECREASED GLUCOSE; Start 12/28/18 at 19:00 Glucose (Glutose) 22.5 gm Q15M PRN PO DECREASED GLUCOSE; Start 12/28/18 at 19:00 Dextrose (D50w Syringe) 25 ml Q15M PRN IV DECREASED GLUCOSE; Start 12/28/18 at 19:00 Dextrose (D50w Syringe) 50 ml Q15M PRN IV DECREASED GLUCOSE; Start 12/28/18 at 19:00 Glucagon (Glucagen) 1 mg Q15M PRN IM DECREASED GLUCOSE; Start 12/28/18 at 19:00 Glucose (Glutose) 15 gm Q15M PRN BUCCAL DECREASED GLUCOSE; Start 12/28/18 at 19:00 Sevelamer Carbonate (Renvela) 1.6 gm TID NGT Last administered on 01/07/19at 13: 51; Admin Dose 1.6 GM; Start 12/31/18 at 13:00 Metoclopramide HCl (Reglan) 5 mg Q8 PO Last administered on 01/07/19 13:50; Admin Dose 5 MG; Start 01/02/19 at 07:00 Olanzapine (Zyprexa) 5 mg DAILY PO Last administered on 01/07/19 09:20; Admin Dose 5 MG; Start 01/07/19 at 09:00 PHYLICIA HOLCOMB NP Jan 07, 2019 19:51
[2019-01-07] MEDS: INSULIN GLARGINE [LANTus] (100 UNITS/ML) SYG SC SCH (20:46)
[2019-01-07] MEDS: HYDROCODONE/APAP (5/325) TAB PO PRN (22:08)
[2019-01-08 02:25] VITALS: BP 142/65; PULSE 65; RESP 18
[2019-01-08] MEDS: METOCLOPRAMIDE 5 MG TAB PO SCH ×3 (06:00→22:43)
[2019-01-08 07:52] VITALS: BP 112/52; PULSE 69; RESP 16
[2019-01-08] MEDS: FERROUS SULFATE 60 MG/ML 5ML CUP GTB SCH ×2 (09:24→20:37)
[2019-01-08] MEDS: OLANZAPINE 5 MG TAB PO SCH (09:25)
[2019-01-08] MEDS: POLYETHYLENE GLYCOL 17 GM PACKET GTB SCH (09:25)
[2019-01-08] MEDS: LINAGLIPTIN 5 MG TABLET GTB SCH (09:25)
[2019-01-08] MEDS: VORICONAZOLE 200 MG TAB PO SCH ×2 (09:25→20:39)
[2019-01-08] MEDS: FOLIC ACID 1 MG TAB GTB SCH (09:25)
[2019-01-08] MEDS: SEVELAMER CARBONATE 0.8 GM PKT NGT SCH ×3 (09:25→20:38)
[2019-01-08] MEDS: ASPIRIN (EC) 81 MG TAB PO SCH (09:25)
[2019-01-08] MEDS: LANSOPRAZOLE 30 MG CAP GTB SCH (09:25)
[2019-01-08] MEDS: SENNA TAB PO SCH ×2 (09:25→20:39)
[2019-01-08] MEDS: MULTIVIT/CA CARB/B CMPLX/FA TAB GTB SCH (09:25)
[2019-01-08] MEDS: DOCUSATE SODIUM 10 MG/ML (10ML CUP) GTB SCH (09:25)
[2019-01-08] MEDS: AMLODIPINE 5 MG TAB GTB SCH (09:26)
[2019-01-08] MEDS: METOPROLOL 50 MG TAB GTB SCH ×2 (09:26→20:42)
--- NOTE | 2019-01-08 11:33 | CONS ---
Assessment/Plan Assessment/Plan Hospital Course (Demo Recall) 1. End-stage renal disease on hemodialysis. 2. Gastrointestinal bleed with melena, resolved. 3. Hypertension, controlled. 4. Diabetes mellitus type II controlled. 5. Right hand swelling, s/p I and D on 11/17/18 6. History of falls. 7. Vascular dementia. 8. History of sepsis with VRE. 9. Dysphagia, status post G-tube. 10. History of hip fracture. 11. Thrombocytopenia. 12. Atherosclerotic heart disease. 13. Pneumonia left side, resolved 14. Anemia 15. Fungemia. 16. UTI Assessment/Plan (Daily) -HD MWF, - cw with permacath -avoid nephrotoxic drugs -c/w iron sulfate, epogen dced - Aspiration precautions -DC planning Consultation Date/Type/Reason Admit Date/Time Nov 16, 2018 at 05:51 Initial Consult Date 11/16/18 Type of Consult nephrology Reason for Consultation Dr Stringer Requesting Provider: DYLON WALLS MD Date/Time of Note DATE: 01/08/19 TIME: 11:32 24 HR Interval Summary Free Text/Dictation pt sleeping Exam/Review of Systems Exam Vitals Vital Signs Date Temp Pulse Resp B/P (MAP) Pulse Ox O2 O2 Flow FiO2 Time Delivery Rate 01/08/19 97.9 69 16 112/52 97 Room Air 07:52 (72) 01/04/19 21 14:49 Intake and Output 01/07/19 01/07/19 01/08/19 1414:59 22:59 06:59 OutputOutput Total 2600 ml BalanceBalance -2600 ml Exam chest permcath Constitutional: frail Psych: confusion Head: normocephalic Respiratory: clear to auscultation Cardiovascular: regular rate and rhythm Gastrointestinal: soft, surgical scars, other (GT) Musculoskeletal: muscle weakness, other (right hand wound) Results Result Diagram: 01/08/1913 01/08/19512 Results 24hrs Laboratory Tests Test 01/07/19 20:43 01/08/19 05:13 01/08/19 09:17 Bedside Glucose 160 148 White Blood Count 8.7 # Red Blood Count 3.30 L Hemoglobin 8.4 L Hematocrit 27.0 L Mean Corpuscular Volume 81.8 L Mean Corpuscular Hemoglobin 25.5 L Mean Corpuscular Hemoglobin Concent 31.1 L Red Cell Distribution Width 16.2 H Platelet Count 277 Mean Platelet Volume 12.3 H Immature Granulocytes % 0.200 Neutrophils % 67.7 Lymphocytes % 14.8 L Monocytes % 9.6 Eosinophils % 7.2 H Basophils % 0.5 Nucleated Red Blood Cells % 0.5 H Immature Granulocytes # 0.020 Neutrophils # 5.9 Lymphocytes # 1.3 Monocytes # 0.8 Eosinophils # 0.6 H Basophils # 0.0 Nucleated Red Blood Cells # 0.0 Sodium Level 138 Potassium Level 4.9 Chloride Level 98 Carbon Dioxide Level 31 Anion Gap 9 Blood Urea Nitrogen 43 H Creatinine 1.75 H Est Glomerular Filtrat Rate mL/min Glucose Level 112 Calcium Level 9.3 Phosphorus Level 3.6 Magnesium Level 2.7 H Medications Medication Current Medications IV Flush (NS 3 ml) 3 ml PER PROTOCOL IV ; Start 11/16/18 at 09:00 Ondansetron HCl (Zofran Inj) 4 mg Q6H PRN IV NAUSEA AND/OR VOMITING Last administered on 12/31/18 11:45; Admin Dose 4 MG; Start 11/16/18 at 09:00 Hydralazine HCl (Apresoline) 10 mg Q4H PRN IV ELEVATED BLOOD PRESSURE Last administered on 12/22/18 19:40; Admin Dose 10 MG; Start 11/17/18 at 10:30 Acetaminophen/ Hydrocodone Bitart ([place] (5/325)) 1 tab Q3H PRN PO MODERATE PAIN LEVEL 4-6 Last administered on 01/07/19 22:08; Admin Dose 1 TAB; Start 11/17/18 at 14:30 Albumin Human 50 ml @ 100 mls/hr WITH DIALYSIS PRN IV SBP<90 Last administered on 01/05/19 10:17; Admin Dose 100 MLS/HR; Start 11/18/18 at 14:30 Morphine Sulfate (morphine) 6 mg Q4H PRN PO SEVERE PAIN LEVEL 7-10 Last administered on 12/30/18 09:15; Admin Dose 6 MG; Start 11/18/18 at 23:00 Docusate Sodium (Colace Liquid Cup) 100 mg DAILY GTB Last administered on 01/08/19 09:25; Admin Dose 100 MG; Start 11/19/18 at 09:30 Multivit/Ca Carb/ B Cmplx/FA/Prenat (Kianna-Roque) 1 tab DAILY GTB Last administered on 01/08/19 09:25; Admin Dose 1 TAB; Start 11/24/18 at 09:00 Lansoprazole (Prevacid) 30 mg DAILY GTB Last administered on 01/08/19 09:25; Admin Dose 30 MG; Start 11/26/18 at 09:00 Acetaminophen (Tylenol Supp) 650 mg Q4H PRN [place] MILD PAIN(1-3) OR TEMP>38C Last administered on 11/26/18 08:32; Admin Dose 650 MG; Start 11/26/18 at 08:30 Hydralazine HCl (Apresoline) 50 mg Q8 PO Last administered on 01/08/19 06:35; Admin Dose 50 MG; Start 12/07/18 at 22:00 Metoprolol Tartrate (Lopressor) 100 mg BID GTB Last administered on 01/08/19 09:26; Admin Dose 100 MG; Start 12/13/18 at 21:00 Aspirin (Halfprin) 81 mg DAILY PO Last administered on 01/08/19 09:25; Admin Dose 81 MG; Start 12/13/18 at 19:30 Senna (Senokot) 1 tab BID PO Last administered on 01/08/19 09:25; Admin Dose 1 TAB; Start 12/17/18 at 21:00 Acetaminophen (Tylenol Tab) 650 mg Q6H PRN PO PAIN LEVEL 1-3 OR FEVER Last administered on 12/21/18 05:01; Admin Dose 650 MG; Start 12/17/18 at 15:00 Albuterol/ Ipratropium (Duoneb) 3 ml Q6H RESP THERAPY PRN HHN sob Last administered on 12/19/18 03:51; Admin Dose 3 ML; Start 12/17/18 at 09:00 Docusate Sodium (Colace) 100 mg Q12H PRN PO CONSTIPATION Last administered on 12/21/18 05:01; Admin Dose 100 MG; Start 12/17/18 at 21:00 Ferrous Sulfate (Feosol Liquid Cup) 300 mg BID GTB Last administered on 01/08/19 09:24; Admin Dose 300 MG; Start 12/17/18 at 21:00 Guaifenesin/ Dextromethorphan (Robitussin Dm Liquid Cup) 5 ml Q4H PRN PO cough Last administered on 12/24/18 21:16; Admin Dose 5 ML; Start 12/17/18 at 18:00 Linagliptin (Tradjenta) 5 mg DAILY GTB Last administered on 01/08/19 09:25; Admin Dose 5 MG; Start 12/17/18 at 09:00 Folic Acid (Folic Acid) 1 mg DAILY GTB Last administered on 01/08/19 09:25; Admin Dose 1 MG; Start 12/18/18 at 09:00 Metoclopramide HCl (Reglan) 5 mg Q8 PRN IV VOMITTING; Start 12/20/18 at 10:00 IV Flush (NS 10 ml) 10 ml AFTER DIALYSIS CATHETER ; Start 12/22/18 at 10:00 Voriconazole (Vfend) 200 mg BID PO Last administered on 01/08/19 09:25; Admin Dose 200 MG; Start 12/22/18 at 11:00 Magnesium Hydroxide (Milk Of Mag) 30 ml DAILY PRN PO CONSTIPATION; Start 12/22/18 at 17:00 Sodium Chloride (NS) -To prime the dialy... DIRECTED FOR HD PRN IV HD; Start 12/23/18 at 16:00 Amlodipine Besylate (Norvasc) 5 mg DAILY GTB Last administered on 01/08/19 09:2 6; Admin Dose 5 MG; Start 12/25/18 at 15:30 Polyethylene Glycol (Miralax) 17 gm DAILY GTB Last administered on 01/08/19 09:25; Admin Dose 17 GM; Start 12/27/18 at 09:00 Insulin Glargine (Lantus) 4 units DAILY@2000 SC Last administered on 01/07/19 20:46; Admin Dose 4 UNITS; Start 12/28/18 at 20:00 Miscellaneous Information 1 ea NOTE XX ; Start 12/28/18 at 19:00 Glucose (Glutose) 15 gm Q15M PRN PO DECREASED GLUCOSE; Start 12/28/18 at 19:00 Glucose (Glutose) 22.5 gm Q15M PRN PO DECREASED GLUCOSE; Start 12/28/18 at 19:00 Dextrose (D50w Syringe) 25 ml Q15M PRN IV DECREASED GLUCOSE; Start 12/28/18 at 19:00 Dextrose (D50w Syringe) 50 ml Q15M PRN IV DECREASED GLUCOSE; Start 12/28/18 at 19:00 Glucagon (Glucagen) 1 mg Q15M PRN IM DECREASED GLUCOSE; Start 12/28/18 at 19:00 Glucose (Glutose) 15 gm Q15M PRN BUCCAL DECREASED GLUCOSE; Start 12/28/18 at 19:00 Sevelamer Carbonate (Renvela) 1.6 gm TID NGT Last administered on 01/08/19at 09:25; Admin Dose 1.6 GM; Start 12/31/18 at 13:00 Metoclopramide HCl (Reglan) 5 mg Q8 PO Last administered on 01/07/19at 13:50; Admin Dose 5 MG; Start 01/02/19 at 07:00 Olanzapine (Zyprexa) 5 mg DAILY PO Last administered on 01/08/19 09:25; Admin Dose 5 MG; Start 01/07/19 at 09:00 FLAVIO CLAYTON Jan 08, 2019 11:33
--- NOTE | 2019-01-08 11:36 | CONS ---
Assessment/Plan Assessment/Plan Hospital Course (Demo Recall) 83 yo female in ESRD on HD presents for melena and anemia and was also found to have edematous Rt hand/wrist Interval Hx: No acute changes. Tolerating tube feeds at 30cc. No evidence of GI bleeding. 1. UGIB manifested through melena and anemia -no melena noted or GI bleeding noted by nursing staff -RESOLVED 2. Anemia, acute on chronic, acute likely due to blood loss in rt hand -No evidence of active GI bleeding, consider etiology of blood loss anemia to be from hematoma in hand -Fe wnl, TIBC low, Ferritin, folate, b12 high, FOB neg -likely due to chronic disease 01/08/19 Hb 8.4, WBC 8.7 3. ESRD on HD -Followed by nephrology 4. Hematoma of Rt hand and wrist -I and D drainage by Dr. Dean 11/17 -IMPROVED 5. Dysphagia -on tube feeds 6. DM2 7. HTN 8. H/O diastolic dysfunction heart failure 9. S/P EGD 11/18 10. Moderate gastritis with no bleeding noted. 11. Hospital acquired pneumonia -improved 12. Yeast in urine cx -cx 12/20 12. Emesis -no emesis in the last 24 hours per nursing staff Gastric biopsy results: Stomach, biopsy: -- Antral and oxyntic mucosa showing minimal plasma cell infiltration and small focus of intestinal metaplasia. -- No Helicobacter pylori is identified in Giemsa stain (positive control concurrently reviewed). -- No evidence of dysplasia or malignancy. Plan: Continue to monitor patient for Emesis,maintain aspiration precautions She was still at tube feeds 30 cc/hr, Try titrating tube feeds upto 35 cc/hr Give medications in small doses Reglan 5 mg prior to meals, low dose to due ESRD Continue present care Monitor HH closely and for active GI bleeding, Pt examined and plan of care discussed with Dr. Baird Consultation Date/Type/Reason Admit Date/Time Nov 16, 2018 at 05:51 Will keep tube feeds at 30 cc/hour per Dr Baird as patient had not tolerated increased rate Initial Consult Date 11/30/18 Requesting Provider: DYLON WALLS MD Date/Time of Note DATE: 01/08/19 TIME: 11:28 Exam/Review of Systems Exam Vitals Vital Signs Date Temp Pulse Resp B/P (MAP) Pulse Ox O2 O2 Flow FiO2 Time Delivery Rate 01/08/19 97.9 69 16 112/52 97 Room Air 07:52 (72) 01/04/19 21 14:49 Intake and Output 01/07/19 01/07/19 01/08/19 1515:00 23:00 07:00 OutputOutput Total 2600 ml BalanceBalance -2600 ml Constitutional: non-verbal, frail Head: normocephalic, atraumatic Neck: supple Respiratory: diminished breath sounds Cardiovascular: regular rate and rhythm Gastrointestinal: soft, non-tender Musculoskeletal: nl extremities to inspection Extremities: normal pulses 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: LPTA II-XII intact Results Result Diagram: 01/08/19 0513 01/08/19 0513 Results 24hrs Laboratory Tests Test 01/07/19 20:43 01/08/19 05:13 01/08/19 09:17 Bedside Glucose 160 148 White Blood Count 8.7 # Red Blood Count 3.30 L Hemoglobin 8.4 L Hematocrit 27.0 L Mean Corpuscular Volume 81.8 L Mean Corpuscular Hemoglobin 25.5 L Mean Corpuscular Hemoglobin Concent 31.1 L Red Cell Distribution Width 16.2 H Platelet Count 277 Mean Platelet Volume 12.3 H Immature Granulocytes % 0.200 Neutrophils % 67.7 Lymphocytes % 14.8 L Monocytes % 9.6 Eosinophils % 7.2 H Basophils % 0.5 Nucleated Red Blood Cells % 0.5 H Immature Granulocytes # 0.020 Neutrophils # 5.9 Lymphocytes # 1.3 Monocytes # 0.8 Eosinophils # 0.6 H Basophils # 0.0 Nucleated Red Blood Cells # 0.0 Sodium Level 138 Potassium Level 4.9 Chloride Level 98 Carbon Dioxide Level 31 Anion Gap 9 Blood Urea Nitrogen 43 H Creatinine 1.75 H Est Glomerular Filtrat Rate mL/min Glucose Level 112 Calcium Level 9.3 Phosphorus Level 3.6 Magnesium Level 2.7 H Medications Medication Current Medications IV Flush (NS 3 ml) 3 ml PER PROTOCOL IV ; Start 11/16/18 at 09:00 Ondansetron HCl (Zofran Inj) 4 mg Q6H PRN IV NAUSEA AND/OR VOMITING Last administered on 12/31/18at 11:45; Admin Dose 4 MG; Start 11/16/18 at 09:00 Hydralazine HCl (Apresoline) 10 mg Q4H PRN IV ELEVATED BLOOD PRESSURE Last administered on 12/22/18 19:40; Admin Dose 10 MG; Start 11/17/18 at 10:30 Acetaminophen/ Hydrocodone Bitart ([place] (5/325)) 1 tab Q3H PRN PO MODERATE PAIN LEVEL 4-6 Last administered on 01/07/19 22:08; Admin Dose 1 TAB; Start 11/17/18 at 14:30 Albumin Human 50 ml @ 100 mls/hr WITH DIALYSIS PRN IV SBP<90 Last administered on 01/05/19 10:17; Admin Dose 100 MLS/HR; Start 11/18/18 at 14:30 Morphine Sulfate (morphine) 6 mg Q4H PRN PO SEVERE PAIN LEVEL 7-10 Last administered on 12/30/18 09:15; Admin Dose 6 MG; Start 11/18/18 at 23:00 Docusate Sodium (Colace Liquid Cup) 100 mg DAILY GTB Last administered on 01/08/19 09:25; Admin Dose 100 MG; Start 11/19/18 at 09:30 Multivit/Ca Carb/ B Cmplx/FA/Prenat (Kianna-Roque) 1 tab DAILY GTB Last administered on 01/08/19 09:25; Admin Dose 1 TAB; Start 11/24/18 at 09:00 Lansoprazole (Prevacid) 30 mg DAILY GTB Last administered on 01/08/19 09:25; Admin Dose 30 MG; Start 11/26/18 at 09:00 Acetaminophen (Tylenol Supp) 650 mg Q4H PRN [place] MILD PAIN(1-3) OR TEMP>38C Last administered on 11/26/18 08:32; Admin Dose 650 MG; Start 11/26/18 at 08:30 Hydralazine HCl (Apresoline) 50 mg Q8 PO Last administered on 01/08/19 06:35; Admin Dose 50 MG; Start 12/07/18 at 22:00 Metoprolol Tartrate (Lopressor) 100 mg BID GTB Last administered on 01/08/19 09:26; Admin Dose 100 MG; Start 12/13/18 at 21:00 Aspirin (Halfprin) 81 mg DAILY PO Last administered on 01/08/19 09:25; Admin Dose 81 MG; Start 12/13/18 at 19:30 Senna (Senokot) 1 tab BID PO Last administered on 01/08/19 09:25; Admin Dose 1 TAB; Start 12/17/18 at 21:00 Acetaminophen (Tylenol Tab) 650 mg Q6H PRN PO PAIN LEVEL 1-3 OR FEVER Last administered on 12/21/18 05:01; Admin Dose 650 MG; Start 12/17/18 at 15:00 Albuterol/ Ipratropium (Duoneb) 3 ml Q6H RESP THERAPY PRN HHN sob Last administered on 12/19/18 03:51; Admin Dose 3 ML; Start 12/17/18 at 09:00 Docusate Sodium (Colace) 100 mg Q12H PRN PO CONSTIPATION Last administered on 12/21/18 05:01; Admin Dose 100 MG; Start 12/17/18 at 21:00 Ferrous Sulfate (Feosol Liquid Cup) 300 mg BID GTB Last administered on 01/08/19 09:24; Admin Dose 300 MG; Start 12/17/18 at 21:00 Guaifenesin/ Dextromethorphan (Robitussin Dm Liquid Cup) 5 ml Q4H PRN PO cough Last administered on 12/24/18 21:16; Admin Dose 5 ML; Start 12/17/18 at 18:00 Linagliptin (Tradjenta) 5 mg DAILY GTB Last administered on 01/08/19 09:25; Admin Dose 5 MG; Start 12/17/18 at 09:00 Folic Acid (Folic Acid) 1 mg DAILY GTB Last administered on 01/08/19 09:25; Admin Dose 1 MG; Start 12/18/18 at 09:00 Metoclopramide HCl (Reglan) 5 mg Q8 PRN IV VOMITTING; Start 12/20/18 at 10:00 IV Flush (NS 10 ml) 10 ml AFTER DIALYSIS CATHETER ; Start 12/22/18 at 10:00 Voriconazole (Vfend) 200 mg BID PO Last administered on 01/08/19 09:25; Admin Dose 200 MG; Start 12/22/18 at 11:00 Magnesium Hydroxide (Milk Of Mag) 30 ml DAILY PRN PO CONSTIPATION; Start 12/22/18 at 17:00 Sodium Chloride (NS) -To prime the dialy... DIRECTED FOR HD PRN IV HD; Start 12/23/18 at 16:00 Amlodipine Besylate (Norvasc) 5 mg DAILY GTB Last administered on 01/08/19 09:26; Admin Dose 5 MG; Start 12/25/18 at 15:30 Polyethylene Glycol (Miralax) 17 gm DAILY GTB Last administered on 01/08/19 09:25; Admin Dose 17 GM; Start 12/27/18 at 09:00 Insulin Glargine (Lantus) 4 units DAILY@2000 SC Last administered on 01/07/19 20:46; Admin Dose 4 UNITS; Start 12/28/18 at 20:00 Miscellaneous Information 1 ea NOTE XX ; Start 12/28/18 at 19:00 Glucose (Glutose) 15 gm Q15M PRN PO DECREASED GLUCOSE; Start 12/28/18 at 19:00 Glucose (Glutose) 22.5 gm Q15M PRN PO DECREASED GLUCOSE; Start 12/28/18 at 19:00 Dextrose (D50w Syringe) 25 ml Q15M PRN IV DECREASED GLUCOSE; Start 12/28/18 at 19:00 Dextrose (D50w Syringe) 50 ml Q15M PRN IV DECREASED GLUCOSE; Start 12/28/18 at 19:00 Glucagon (Glucagen) 1 mg Q15M PRN IM DECREASED GLUCOSE; Start 12/28/18 at 19:00 Glucose (Glutose) 15 gm Q15M PRN BUCCAL DECREASED GLUCOSE; Start 12/28/18 at 19:00 Sevelamer Carbonate (Renvela) 1.6 gm TID NGT Last administered on 01/08/19 09:25; Admin Dose 1.6 GM; Start 12/31/18 at 13:00 Metoclopramide HCl (Reglan) 5 mg Q8 PO Last administered on 01/07/19 13:50; Admin Dose 5 MG; Start 01/02/19 at 07:00 Olanzapine (Zyprexa) 5 mg DAILY PO Last administered on 01/08/19 09:25; Admin Dose 5 MG; Start 01/07/19 at 09:00 AUGUSTINE MONIQUE NP Jan 08, 2019 11:36
[2019-01-08 14:00] VITALS: BP 121/56; PULSE 61; RESP 17
--- NOTE | 2019-01-08 14:29 | CONS ---
Assessment/Plan Assessment/Plan Hospital Course (Demo Recall) ID PROGRESS NOTE CURRENT ABX: DAY #=> OFF ABX s/p VFEND # + Merrem # s/p Merrem # + Cancidas 01/08/19 0501/08/19 05 24H INTERVAL SUMMARY * Resting comfortably with eyes closed, awakens, no fevers, VSS, NAD * Completed ABX course for aspiration event on == resolved * Indwelling: Left chest PermCath, PEG MICRO * 12/20/18 URINE Cx (+) Glabrata URINE CULTURE Final Organism 1 TYREE GLABRATA COLONY COUNT 30,000 - 40,000 CFU/ml * 12/20/18 BCx (-) * 12/18/18 BCx (-) * 12/06/18 URINE Cx (+) Glabrata * 12/03/18 BCx (-) * 12/01/18 BCx (-) * 11/29/18 BCx (+) Glabrata * 11/24/18 BCX (+) Glabrata = fungemia PHYSICAL EXAMINATION: GENERAL: Afebrile, VSS, HEENT: AT, NC, anicteric NECK: Supple, trach CHEST: Equal chest rise bilaterally, without dyspnea on observation HEART: Pulse RRR ABDOMEN: Soft / NT EXTREMITIES: Warm, dry SKIN: No rash, no diaphoresis ID ASSESSMENT 83 yo F w/ DEMENTIA admit with: 1. s/p (+)SIRS 12/31/18 w/Increased lethargy, WBC elevated 12.7-- ASPIRATION EVENT => RESOLVED 2. Recurrent ASPIRATION PNEUMONITIS event 12/30/18 3. Recurrent C.GLABRATA UTIs == on 3 week course of VFEND * s/p FUNGEMIA == secondary to GLABRATA UTI => RESOLVED 4. Status post VRE bacteremia, status post new Pcath => RESOLVED 5. End-stage renal disease, hemodialysis dependent 6. Diabetes 7. Anemia 8. Failure to thrive - Frail cachectic w/dementia (-)MRSA Nares ABX ALLERGIES: KNDA INVASIVES: PIV, Left chest PermCath CURRENT ABX: DAY #=> OFF ABX s/p VFEND # + Merrem # s/p Merrem # + Cancidas ID RECOMMENDATIONS/PLAN: Monitor OFF ABX Aspiration precautions . Consultation Date/Type/Reason Admit Date/Time Nov 16, 2018 at 05:51 Initial Consult Date 11/16/18 Requesting Provider: DYLON WALLS MD Date/Time of Note DATE: 01/08/19 TIME: 14:26 Exam/Review of Systems Exam Vitals Vital Signs Date Temp Pulse Resp B/P (MAP) Pulse Ox O2 O2 Flow FiO2 Time Delivery Rate 01/08/19 97.9 69 16 112/52 97 Room Air 07:52 (72) 01/04/19 21 14:49 Intake and Output 01/07/19 01/07/19 01/08/19 1515:00 23:00 07:00 OutputOutput Total 2600 ml BalanceBalance -2600 ml Results Result Diagram: 01/08/1913 01/08/19512 Results 24hrs Laboratory Tests Test 01/07/19 20:43 01/08/19 05:13 01/08/19 09:17 Bedside Glucose 160 148 White Blood Count 8.7 # Red Blood Count 3.30 L Hemoglobin 8.4 L Hematocrit 27.0 L Mean Corpuscular Volume 81.8 L Mean Corpuscular Hemoglobin 25.5 L Mean Corpuscular Hemoglobin Concent 31.1 L Red Cell Distribution Width 16.2 H Platelet Count 277 Mean Platelet Volume 12.3 H Immature Granulocytes % 0.200 Neutrophils % 67.7 Lymphocytes % 14.8 L Monocytes % 9.6 Eosinophils % 7.2 H Basophils % 0.5 Nucleated Red Blood Cells % 0.5 H Immature Granulocytes # 0.020 Neutrophils # 5.9 Lymphocytes # 1.3 Monocytes # 0.8 Eosinophils # 0.6 H Basophils # 0.0 Nucleated Red Blood Cells # 0.0 Sodium Level 138 Potassium Level 4.9 Chloride Level 98 Carbon Dioxide Level 31 Anion Gap 9 Blood Urea Nitrogen 43 H Creatinine 1.75 H Est Glomerular Filtrat Rate mL/min Glucose Level 112 Calcium Level 9.3 Phosphorus Level 3.6 Magnesium Level 2.7 H Medications Medication Current Medications IV Flush (NS 3 ml) 3 ml PER PROTOCOL IV ; Start 11/16/18 at 09:00 Ondansetron HCl (Zofran Inj) 4 mg Q6H PRN IV NAUSEA AND/OR VOMITING Last administered on 12/31/18at 11:45; Admin Dose 4 MG; Start 11/16/18 at 09:00 Hydralazine HCl (Apresoline) 10 mg Q4H PRN IV ELEVATED BLOOD PRESSURE Last administered on 12/22/18 19:40; Admin Dose 10 MG; Start 11/17/18 at 10:30 Acetaminophen/ Hydrocodone Bitart ([place] (5/325)) 1 tab Q3H PRN PO MODERATE PAIN LEVEL 4-6 Last administered on 01/07/19 22:08; Admin Dose 1 TAB; Start 11/17/18 at 14:30 Albumin Human 50 ml @ 100 mls/hr WITH DIALYSIS PRN IV SBP<90 Last administered on 01/05/19 10:17; Admin Dose 100 MLS/HR; Start 11/18/18 at 14:30 Morphine Sulfate (morphine) 6 mg Q4H PRN PO SEVERE PAIN LEVEL 7-10 Last administered on 12/30/18 09:15; Admin Dose 6 MG; Start 11/18/18 at 23:00 Docusate Sodium (Colace Liquid Cup) 100 mg DAILY GTB Last administered on 01/08/19 09:25; Admin Dose 100 MG; Start 11/19/18 at 09:30 Multivit/Ca Carb/ B Cmplx/FA/Prenat (Kianna-Roque) 1 tab DAILY GTB Last administered on 01/08/19 09:25; Admin Dose 1 TAB; Start 11/24/18 at 09:00 Lansoprazole (Prevacid) 30 mg DAILY GTB Last administered on 01/08/19 09:25; Admin Dose 30 MG; Start 11/26/18 at 09:00 Acetaminophen (Tylenol Supp) 650 mg Q4H PRN [place] MILD PAIN(1-3) OR TEMP>38C Last administered on 11/26/18 08:32; Admin Dose 650 MG; Start 11/26/18 at 08:30 Hydralazine HCl (Apresoline) 50 mg Q8 PO Last administered on 01/08/19 06:35; Admin Dose 50 MG; Start 12/07/18 at 22:00 Metoprolol Tartrate (Lopressor) 100 mg BID GTB Last administered on 01/08/19 09:26; Admin Dose 100 MG; Start 12/13/18 at 21:00 Aspirin (Halfprin) 81 mg DAILY PO Last administered on 01/08/19 09:25; Admin Dose 81 MG; Start 12/13/18 at 19:30 Senna (Senokot) 1 tab BID PO Last administered on 01/08/19 09:25; Admin Dose 1 TAB; Start 12/17/18 at 21:00 Acetaminophen (Tylenol Tab) 650 mg Q6H PRN PO PAIN LEVEL 1-3 OR FEVER Last administered on 12/21/18 05:01; Admin Dose 650 MG; Start 12/17/18 at 15:00 Albuterol/ Ipratropium (Duoneb) 3 ml Q6H RESP THERAPY PRN HHN sob Last administered on 12/19/18 03:51; Admin Dose 3 ML; Start 12/17/18 at 09:00 Docusate Sodium (Colace) 100 mg Q12H PRN PO CONSTIPATION Last administered on 12/21/18 05:01; Admin Dose 100 MG; Start 12/17/18 at 21:00 Ferrous Sulfate (Feosol Liquid Cup) 300 mg BID GTB Last administered on 9at 09:24; Admin Dose 300 MG; Start 12/17/18 at 21:00 Guaifenesin/ Dextromethorphan (Robitussin Dm Liquid Cup) 5 ml Q4H PRN PO cough Last administered on 12/24/18 21:16; Admin Dose 5 ML; Start 12/17/18 at 18:00 Linagliptin (Tradjenta) 5 mg DAILY GTB Last administered on 01/08/19 09:25; Admin Dose 5 MG; Start 12/17/18 at 09:00 Folic Acid (Folic Acid) 1 mg DAILY GTB Last administered on 01/08/19 09:25; Admin Dose 1 MG; Start 12/18/18 at 09:00 Metoclopramide HCl (Reglan) 5 mg Q8 PRN IV VOMITTING; Start 12/20/18 at 10:00 IV Flush (NS 10 ml) 10 ml AFTER DIALYSIS CATHETER ; Start 12/22/18 at 10:00 Voriconazole (Vfend) 200 mg BID PO Last administered on 01/08/19 09:25; Admin Dose 200 MG; Start 12/22/18 at 11:00 Magnesium Hydroxide (Milk Of Mag) 30 ml DAILY PRN PO CONSTIPATION; Start 12/22/18 at 17:00 Sodium Chloride (NS) -To prime the dialy... DIRECTED FOR HD PRN IV HD; Start 12/23/18 at 16:00 Amlodipine Besylate (Norvasc) 5 mg DAILY GTB Last administered on 01/08/19 09:26; Admin Dose 5 MG; Start 12/25/18 at 15:30 Polyethylene Glycol (Miralax) 17 gm DAILY GTB Last administered on 01/08/19 09:25; Admin Dose 17 GM; Start 12/27/18 at 09:00 Insulin Glargine (Lantus) 4 units DAILY@2000 SC Last administered on 01/07/19 20:46; Admin Dose 4 UNITS; Start 12/28/18 at 20:00 Miscellaneous Information 1 ea NOTE XX ; Start 12/28/18 at 19:00 Glucose (Glutose) 15 gm Q15M PRN PO DECREASED GLUCOSE; Start 12/28/18 at 19:00 Glucose (Glutose) 22.5 gm Q15M PRN PO DECREASED GLUCOSE; Start 12/28/18 at 19:00 Dextrose (D50w Syringe) 25 ml Q15M PRN IV DECREASED GLUCOSE; Start 12/28/18 at 19:00 Dextrose (D50w Syringe) 50 ml Q15M PRN IV DECREASED GLUCOSE; Start 12/28/18 at 19:00 Glucagon (Glucagen) 1 mg Q15M PRN IM DECREASED GLUCOSE; Start 12/28/18 at 19:00 Glucose (Glutose) 15 gm Q15M PRN BUCCAL DECREASED GLUCOSE; Start 12/28/18 at 19:00 Sevelamer Carbonate (Renvela) 1.6 gm TID NGT Last administered on 01/08/19at 12:58; Admin Dose 1.6 GM; Start 12/31/18 at 13:00 Metoclopramide HCl (Reglan) 5 mg Q8 PO Last administered on 01/07/19 13:50; Admin Dose 5 MG; Start 01/02/19 at 07:00 Olanzapine (Zyprexa) 5 mg DAILY PO Last administered on 01/08/19 09:25; Admin Dose 5 MG; Start 01/07/19 at 09:00 SEVERO GARCIA NP Jan 08, 2019 14:29
[2019-01-08] MEDS: INSULIN GLARGINE [LANTus] (100 UNITS/ML) SYG SC SCH (20:45)
--- NOTE | 2019-01-08 21:16 | PN ---
DATE: 01/08/2019 SUBJECTIVE: The patient seen, alert, comfortable, less anxious. PHYSICAL EXAMINATION: VITAL SIGNS: Temperature 98.1, pulse 61, respiration 17, blood pressure 121/56, saturation 98% on ro om air. GENERAL: No acute distress, pale. CARDIOVASCULAR: S1, S2, regular rate. LUNGS: Clear. ABDOMEN: Soft. G-tube in place. EXTREMITIES: No clubbing, cyanosis or edema. LABORATORY DATA: White count 8.7, hemoglobin 8.4, hematocrit 27, platelets 277, neutrophils 67%, lym phocytes 15%. Chemistry: Sodium 138, potassium 4.9, chloride 98, bicarbonate 31, BUN is 43, creatin ine 1.75, glucose is 112. Last glucose was 151 and 148. MEDICATIONS: The patient's medications were all reviewed. The patient is on: 1. Zyprexa 5 mg daily. 2. Reglan 5 mg t.i.d. 3. Renvela 1.6 t.i.d. 4. Lantus 4 units daily. All meds otherwise were reviewed. ASSESSMENT AND PLAN: This is an 83-year-old [place] female with end-stage renal disease, advanced d ementia, atherosclerotic cardiovascular disease, status post bacteremia, fungemia, urinary tract infe ction, status post evacuation of right hand hematoma, treated briefly for aspiration pneumonia. 1. Respiratory. Status post Merrem, clinically stable. O2 saturation is good. 2. Hypertension, controlled. 3. ____ disease, dialysis 3 times a week, next one on Thursday. 4. Anemia. Continue Epogen. H and H is stable. No need for transfusion. 5. Psychiatric disorder. Continue Zyprexa, more or less anxious. 7. Diabetes mellitus. Glucose level in the 100s. Continue Levemir and Tradjenta. 8. Urinary tract infection, status post V stent. 9. Awaiting placement. manager title is assisting, Falguni Hatch, but she needs a dialysis center . We will follow. Dictated By: DYLON HULL/MADAN Conf#: [id number] DID#: [id number]
[2019-01-09] MEDS: morphine LIQ (10 MG/5 ML) CUP PO PRN (02:34)
[2019-01-09 05:00] VITALS: BP 125/89; PULSE 65; RESP 18
[2019-01-09] MEDS: METOCLOPRAMIDE 5 MG TAB PO SCH ×3 (06:04→21:18)
[2019-01-09] MEDS: POLYETHYLENE GLYCOL 17 GM PACKET GTB SCH (08:47)
[2019-01-09] MEDS: FERROUS SULFATE 60 MG/ML 5ML CUP GTB SCH ×2 (08:47→21:14)
[2019-01-09] MEDS: FOLIC ACID 1 MG TAB GTB SCH (08:47)
[2019-01-09] MEDS: SENNA TAB PO SCH ×2 (08:47→21:16)
[2019-01-09] MEDS: LINAGLIPTIN 5 MG TABLET GTB SCH (08:47)
[2019-01-09] MEDS: MULTIVIT/CA CARB/B CMPLX/FA TAB GTB SCH (08:47)
[2019-01-09] MEDS: DOCUSATE SODIUM 10 MG/ML (10ML CUP) GTB SCH (08:47)
[2019-01-09] MEDS: AMLODIPINE 5 MG TAB GTB SCH (08:49)
[2019-01-09] MEDS: LANSOPRAZOLE 30 MG CAP GTB SCH (08:49)
[2019-01-09] MEDS: VORICONAZOLE 200 MG TAB PO SCH ×2 (08:49→21:16)
[2019-01-09] MEDS: ASPIRIN (EC) 81 MG TAB PO SCH (08:50)
[2019-01-09] MEDS: METOPROLOL 50 MG TAB GTB SCH ×2 (08:50→21:16)
[2019-01-09] MEDS: SEVELAMER CARBONATE 0.8 GM PKT NGT SCH ×3 (08:51→21:15)
[2019-01-09] MEDS: OLANZAPINE 5 MG TAB PO SCH (08:52)
[2019-01-09 09:06] VITALS: BP 154/67; PULSE 71; RESP 17
--- NOTE | 2019-01-09 09:28 | CONS ---
Assessment/Plan Assessment/Plan Hospital Course (Demo Recall) 1. End-stage renal disease on hemodialysis. 2. Gastrointestinal bleed with melena, resolved. 3. Hypertension, controlled. 4. Diabetes mellitus type II controlled. 5. Right hand swelling, s/p I and D on 11/17/18 6. History of falls. 7. Vascular dementia. 8. History of sepsis with VRE. 9. Dysphagia, status post G-tube. 10. History of hip fracture. 11. Thrombocytopenia. 12. Atherosclerotic heart disease. 13. Pneumonia left side, resolved 14. Anemia 15. Fungemia. 16. UTI Assessment/Plan (Daily) -HD MWF, - cw with permacath -avoid nephrotoxic drugs -c/w iron sulfate - Aspiration precautions -DC planning Consultation Date/Type/Reason Admit Date/Time Nov 16, 2018 at 05:51 Initial Consult Date 11/16/18 Type of Consult nephrology Requesting Provider: DYLON WALLS MD Date/Time of Note DATE: 01/09/19 TIME: 09:27 Exam/Review of Systems Exam Vitals Vital Signs Date Temp Pulse Resp B/P (MAP) Pulse Ox O2 O2 Flow FiO2 Time Delivery Rate 01/09/19 98.4 71 17 154/67 95 Room Air 09:06 (96) Intake and Output 01/08/19 01/08/19 01/09/19 1515:00 23:00 07:00 IntakeIntake Total 610 ml BalanceBalance 610 ml Exam left chest permcath Constitutional: alert, oriented (x2) Eyes: nl conjunctiva ENMT: nl external ears & nose Respiratory: clear to auscultation Cardiovascular: regular rate and rhythm Gastrointestinal: soft, surgical scars Results Result Diagram: 01/08/19 0513 01/08/19 0513 Results 24hrs Laboratory Tests Test 01/08/19 15:59 01/08/19 20:35 01/09/19 03:41 01/09/19 07:57 Bedside Glucose 151 98 89 84 Medications Medication Current Medications IV Flush (NS 3 ml) 3 ml PER PROTOCOL IV ; Start 11/16/18 at 09:00 Ondansetron HCl (Zofran Inj) 4 mg Q6H PRN IV NAUSEA AND/OR VOMITING Last administered on 12/31/18at 11:45; Admin Dose 4 MG; Start 11/16/18 at 09:00 Hydralazine HCl (Apresoline) 10 mg Q4H PRN IV ELEVATED BLOOD PRESSURE Last administered on 12/22/18 19:40; Admin Dose 10 MG; Start 11/17/18 at 10:30 Acetaminophen/ Hydrocodone Bitart ([place] (5/325)) 1 tab Q3H PRN PO MODERATE PAIN LEVEL 4-6 Last administered on 01/07/19 22:08; Admin Dose 1 TAB; Start 11/17/18 at 14:30 Albumin Human 50 ml @ 100 mls/hr WITH DIALYSIS PRN IV SBP<90 Last administered on 01/05/19 10:17; Admin Dose 100 MLS/HR; Start 11/18/18 at 14:30 Morphine Sulfate (morphine) 6 mg Q4H PRN PO SEVERE PAIN LEVEL 7-10 Last administered on 01/09/19 02:34; Admin Dose 6 MG; Start 11/18/18 at 23:00 Docusate Sodium (Colace Liquid Cup) 100 mg DAILY GTB Last administered on 9at 08:47; Admin Dose 100 MG; Start 11/19/18 at 09:30 Multivit/Ca Carb/ B Cmplx/FA/Prenat (Kianna-Roque) 1 tab DAILY GTB Last administered on 01/09/19 08:47; Admin Dose 1 TAB; Start 11/24/18 at 09:00 Lansoprazole (Prevacid) 30 mg DAILY GTB Last administered on 01/09/19 08:49; Admin Dose 30 MG; Start 11/26/18 at 09:00 Acetaminophen (Tylenol Supp) 650 mg Q4H PRN [place] MILD PAIN(1-3) OR TEMP>38C Last administered on 11/26/18 08:32; Admin Dose 650 MG; Start 11/26/18 at 08:30 Metoprolol Tartrate (Lopressor) 100 mg BID GTB Last administered on 01/09/19 08:50; Admin Dose 100 MG; Start 12/13/18 at 21:00 Aspirin (Halfprin) 81 mg DAILY PO Last administered on 01/09/19 08:50; Admin Dose 81 MG; Start 12/13/18 at 19:30 Senna (Senokot) 1 tab BID PO Last administered on 01/09/19 08:47; Admin Dose 1 TAB; Start 12/17/18 at 21:00 Acetaminophen (Tylenol Tab) 650 mg Q6H PRN PO PAIN LEVEL 1-3 OR FEVER Last ad ministered on 12/21/18 05:01; Admin Dose 650 MG; Start 12/17/18 at 15:00 Albuterol/ Ipratropium (Duoneb) 3 ml Q6H RESP THERAPY PRN HHN sob Last administered on 12/19/18 03:51; Admin Dose 3 ML; Start 12/17/18 at 09:00 Docusate Sodium (Colace) 100 mg Q12H PRN PO CONSTIPATION Last administered on 12/21/18 05:01; Admin Dose 100 MG; Start 12/17/18 at 21:00 Ferrous Sulfate (Feosol Liquid Cup) 300 mg BID GTB Last administered on 01/09/19 08:47; Admin Dose 300 MG; Start 12/17/18 at 21:00 Guaifenesin/ Dextromethorphan (Robitussin Dm Liquid Cup) 5 ml Q4H PRN PO cough Last administered on 12/24/18 21:16; Admin Dose 5 ML; Start 12/17/18 at 18:00 Linagliptin (Tradjenta) 5 mg DAILY GTB Last administered on 01/09/19 08:47; Admin Dose 5 MG; Start 12/17/18 at 09:00 Folic Acid (Folic Acid) 1 mg DAILY GTB Last administered on 01/09/19 08:47; Admin Dose 1 MG; Start 12/18/18 at 09:00 Metoclopramide HCl (Reglan) 5 mg Q8 PRN IV VOMITTING; Start 12/20/18 at 10:00 IV Flush (NS 10 ml) 10 ml AFTER DIALYSIS CATHETER ; Start 12/22/18 at 10:00 Voriconazole (Vfend) 200 mg BID PO Last administered on 01/09/19 08:49; Admin Dose 200 MG; Start 12/22/18 at 11:00 Magnesium Hydroxide (Milk Of Mag) 30 ml DAILY PRN PO CONSTIPATION; Start 12/22/18 at 17:00 Sodium Chloride (NS) -To prime the dialy... DIRECTED FOR HD PRN IV HD; Start 12/23/18 at 16:00 Amlodipine Besylate (Norvasc) 5 mg DAILY GTB Last administered on 01/09/19 08:49; Admin Dose 5 MG; Start 12/25/18 at 15:30 Polyethylene Glycol (Miralax) 17 gm DAILY GTB Last administered on 01/09/19 08:47; Admin Dose 17 GM; Start 12/27/18 at 09:00 Insulin Glargine (Lantus) 4 units DAILY@2000 SC Last administered on 01/08/19 20:45; Admin Dose 4 UNITS; Start 12/28/18 at 20:00 Miscellaneous Information 1 ea NOTE XX ; Start 12/28/18 at 19:00 Glucose (Glutose) 15 gm Q15M PRN PO DECREASED GLUCOSE; Start 12/28/18 at 19:00 Glucose (Glutose) 22.5 gm Q15M PRN PO DECREASED GLUCOSE; Start 12/28/18 at 19:00 Dextrose (D50w Syringe) 25 ml Q15M PRN IV DECREASED GLUCOSE; Start 12/28/18 at 19:00 Dextrose (D50w Syringe) 50 ml Q15M PRN IV DECREASED GLUCOSE; Start 12/28/18 at 19:00 Glucagon (Glucagen) 1 mg Q15M PRN IM DECREASED GLUCOSE; Start 12/28/18 at 19:00 Glucose (Glutose) 15 gm Q15M PRN BUCCAL DECREASED GLUCOSE; Start 12/28/18 at 19:00 Sevelamer Carbonate (Renvela) 1.6 gm TID NGT Last administered on 01/09/19 08:51; Admin Dose 1.6 GM; Start 12/31/18 at 13:00 Metoclopramide HCl (Reglan) 5 mg Q8 PO Last administered on 01/09/19 06:04; Admin Dose 5 MG; Start 01/02/19 at 07:00 Olanzapine (Zyprexa) 5 mg DAILY PO Last administered on 01/09/19 08:52; Admin Dose 5 MG; Start 01/07/19 at 09:00 FLAVIO CLAYTON 3, 2019 09:28
[2019-01-09 14:00] VITALS: BP 136/63; PULSE 63; RESP 17
--- NOTE | 2019-01-09 16:38 | CONS ---
Assessment/Plan Assessment/Plan Hospital Course (Demo Recall) No events, awake, looks comfortable Antimicrobials: none Blood culture repeated on November 29 grew Dominique glabrata blood cultures since December 01 that were drawn from permacath negative blood culture on December 03 negative, urine culture growing C glabrata Indwelling: Left chest permacath, PEG Physical examination: Chronically ill-appearing elderly woman who is awake, confused, in no distress. Head atraumatic normocephalic. Neck is supple. Chest rise symmetrical breath sounds diminished bases. Heart: S1-S2. Abdomen soft bowel sounds present, right upper extremity Armani wrapped Assessment: 1. S/p recurrent aspiration event 2. Status post UTI==> T glabrata 3. S/p Fungemia secondary to urinary tract infection 4. Right hand hematoma, status post I&D 11/17/18 5. Status post VRE bacteremia/new Pcath 6. End-stage renal disease, hemodialysis dependent 7. Failure to thrive 8. Diabetes 9. Anemia 10. P Afib Plan: Stable, completed abx, continue aspiration precautions, reculture prn Consultation Date/Type/Reason Admit Date/Time Nov 16, 2018 at 05:51 Initial Consult Date 11/16/18 Type of Consult id Requesting Provider: DYLON WALLS MD Date/Time of Note DATE: 01/09/19 TIME: 16:37 Exam/Review of Systems Exam Vitals Vital Signs Date Temp Pulse Resp B/P (MAP) Pulse Ox O2 O2 Flow FiO2 Time Delivery Rate 01/09/19 98.2 63 17 136/63 96 Room Air 14:00 (87) Intake and Output 01/08/19 01/08/19 01/09/19 1515:00 23:00 07:00 IntakeIntake Total 610 ml BalanceBalance 610 ml Results Result Diagram: 01/08/19 0513 01/08/19 0513 Results 24hrs Laboratory Tests Test 01/08/19 20:35 01/09/19 03:41 01/09/19 07:57 Bedside Glucose 98 89 84 Medications Medication Current Medications IV Flush (NS 3 ml) 3 ml PER PROTOCOL IV ; Start 11/16/18 at 09:00 Ondansetron HCl (Zofran Inj) 4 mg Q6H PRN IV NAUSEA AND/OR VOMITING Last admi nistered on 12/31/18at 11:45; Admin Dose 4 MG; Start 11/16/18 at 09:00 Hydralazine HCl (Apresoline) 10 mg Q4H PRN IV ELEVATED BLOOD PRESSURE Last administered on 12/22/18 19:40; Admin Dose 10 MG; Start 11/17/18 at 10:30 Acetaminophen/ Hydrocodone Bitart ([place] (5/325)) 1 tab Q3H PRN PO MODERATE PAIN LEVEL 4-6 Last administered on 01/07/19 22:08; Admin Dose 1 TAB; Start 11/17/18 at 14:30 Albumin Human 50 ml @ 100 mls/hr WITH DIALYSIS PRN IV SBP<90 Last administered on 01/05/19 10:17; Admin Dose 100 MLS/HR; Start 11/18/18 at 14:30 Morphine Sulfate (morphine) 6 mg Q4H PRN PO SEVERE PAIN LEVEL 7-10 Last administered on 01/09/19 02:34; Admin Dose 6 MG; Start 11/18/18 at 23:00 Docusate Sodium (Colace Liquid Cup) 100 mg DAILY GTB Last administered on 01/09/19 08:47; Admin Dose 100 MG; Start 11/19/18 at 09:30 Multivit/Ca Carb/ B Cmplx/FA/Prenat (Kianna-Roque) 1 tab DAILY GTB Last administered on 01/09/19 08:47; Admin Dose 1 TAB; Start 11/24/18 at 09:00 Lansoprazole (Prevacid) 30 mg DAILY GTB Last administered on 01/09/19 08:49; Admin Dose 30 MG; Start 11/26/18 at 09:00 Acetaminophen (Tylenol Supp) 650 mg Q4H PRN [place] MILD PAIN(1-3) OR TEMP>38C Last administered on 11/26/18 08:32; Admin Dose 650 MG; Start 11/26/18 at 08:30 Metoprolol Tartrate (Lopressor) 100 mg BID GTB Last administered on 01/09/19 08:50; Admin Dose 100 MG; Start 12/13/18 at 21:00 Aspirin (Halfprin) 81 mg DAILY PO Last administered on 01/09/19 08:50; Admin Dose 81 MG; Start 12/13/18 at 19:30 Senna (Senokot) 1 tab BID PO Last administered on 01/09/19 08:47; Admin Dose 1 TAB; Start 12/17/18 at 21:00 Acetaminophen (Tylenol Tab) 650 mg Q6H PRN PO PAIN LEVEL 1-3 OR FEVER Last administered on 12/21/18 05:01; Admin Dose 650 MG; Start 12/17/18 at 15:00 Albuterol/ Ipratropium (Duoneb) 3 ml Q6H RESP THERAPY PRN HHN sob Last administered on 12/19/18 03:51; Admin Dose 3 ML; Start 12/17/18 at 09:00 Docusate Sodium (Colace) 100 mg Q12H PRN PO CONSTIPATION Last administered on 12/21/18 05:01; Admin Dose 100 MG; Start 12/17/18 at 21:00 Ferrous Sulfate (Feosol Liquid Cup) 300 mg BID GTB Last administered on 01/09/19 08:47; Admin Dose 300 MG; Start 12/17/18 at 21:00 Guaifenesin/ Dextromethorphan (Robitussin Dm Liquid Cup) 5 ml Q4H PRN PO cough Last administered on 12/24/18 21:16; Admin Dose 5 ML; Start 12/17/18 at 18:00 Linagliptin (Tradjenta) 5 mg DAILY GTB Last administered on 01/09/19 08:47; Admin Dose 5 MG; Start 12/17/18 at 09:00 Folic Acid (Folic Acid) 1 mg DAILY GTB Last administered on 01/09/19 08:47; Admin Dose 1 MG; Start 12/18/18 at 09:00 Metoclopramide HCl (Reglan) 5 mg Q8 PRN IV VOMITTING; Start 12/20/18 at 10:00 IV Flush (NS 10 ml) 10 ml AFTER DIALYSIS CATHETER ; Start 12/22/18 at 10:00 Voriconazole (Vfend) 200 mg BID PO Last administered on 01/09/19 08:49; Admin Dose 200 MG; Start 12/22/18 at 11:00 Magnesium Hydroxide (Milk Of Mag) 30 ml DAILY PRN PO CONSTIPATION; Start 12/22/18 at 17:00 Sodium Chloride (NS) -To prime the dialy... DIRECTED FOR HD PRN IV HD; Start 12/23/18 at 16:00 Amlodipine Besylate (Norvasc) 5 mg DAILY GTB Last administered on 01/09/19 08:49; Admin Dose 5 MG; Start 12/25/18 at 15:30 Polyethylene Glycol (Miralax) 17 gm DAILY GTB Last administered on 01/09/19 08:47; Admin Dose 17 GM; Start 12/27/18 at 09:00 Insulin Glargine (Lantus) 4 units DAILY@2000 SC Last administered on 01/08/19 20:45; Admin Dose 4 UNITS; Start 12/28/18 at 20:00 Miscellaneous Information 1 ea NOTE XX ; Start 12/28/18 at 19:00 Glucose (Glutose) 15 gm Q15M PRN PO DECREASED GLUCOSE; Start 12/28/18 at 19:00 Glucose (Glutose) 22.5 gm Q15M PRN PO DECREASED GLUCOSE; Start 12/28/18 at 19:00 Dextrose (D50w Syringe) 25 ml Q15M PRN IV DECREASED GLUCOSE; Start 12/28/18 at 19:00 Dextrose (D50w Syringe) 50 ml Q15M PRN IV DECREASED GLUCOSE; Start 12/28/18 at 19:00 Glucagon (Glucagen) 1 mg Q15M PRN IM DECREASED GLUCOSE; Start 12/28/18 at 19:00 Glucose (Glutose) 15 gm Q15M PRN BUCCAL DECREASED GLUCOSE; Start 12/28/18 at 19:00 Sevelamer Carbonate (Renvela) 1.6 gm TID NGT Last administered on 01/09/19 12:20; Admin Dose 1.6 GM; Start 12/31/18 at 13:00 Metoclopramide HCl (Reglan) 5 mg Q8 PO Last administered on 01/09/19at 14:11; Admin Dose 5 MG; Start 01/02/19 at 07:00 Olanzapine (Zyprexa) 5 mg DAILY PO Last administered on 01/09/19 08:52; Admin Dose 5 MG; Start 01/07/19 at 09:00 PHYLICIA HOLCOMB NP Jan 09, 2019 16:37
--- NOTE | 2019-01-09 17:07 | CONS ---
Assessment/Plan Assessment/Plan Hospital Course (Demo Recall) Interval Hx- 83 yo female in ESRD on HD presents for melena and anemia and was also found to have edematous Rt hand/wrist No acute changes, looks comfortable, tolerating tube feeds at 30cc. No evidence of GI bleeding. 1. UGIB manifested through melena and anemia-no evidence of active GI bleeding 2. Anemia, acute on chronic, acute likely due to blood loss in rt hand -No evidence of active GI bleeding, consider etiology of blood loss anemia to be from hematoma in hand -Fe wnl, TIBC low, Ferritin, folate, b12 high, FOB neg -likely due to chronic disease 3. ESRD on HD -Followed by nephrology 4. Hematoma of Rt hand and wrist-resolved -I and D drainage by Dr. Dean 11/17 5. Dysphagia -on tube feeds-tolerating well at 30 cc/hr 6. DM2 7. HTN 8. H/O diastolic dysfunction heart failure 9. S/P EGD 11/18 10. Moderate gastritis with no bleeding noted. 11. Hospital acquired pneumonia -improved 12. Yeast in urine cx -cx 12/20 12. Emesis -no emesis in the last 24 hours per nursing staff Gastric biopsy results: Stomach, biopsy: -- Antral and oxyntic mucosa showing minimal plasma cell infiltration and small focus of intestinal metaplasia. -- No Helicobacter pylori is identified in Giemsa stain (positive control concurrently reviewed). -- No evidence of dysplasia or malignancy. Plan: Continue to monitor patient for Emesis, maintain aspiration precautions Tube feeds at 30 cc/hour-tolerating weel, no residues, no emesis Give medications in small doses Reglan 5 mg prior to meals, low dose to due ESRD Continue present care, Pt examined and plan of care discussed with Dr. Baird Consultation Date/Type/Reason Admit Date/Time Nov 16, 2018 at 05:51 Initial Consult Date 11/30/18 Requesting Provider: DYLON WALLS MD Date/Time of Note DATE: 01/09/19 TIME: 17:00 Exam/Review of Systems Exam Vitals Vital Signs Date Temp Pulse Resp B/P (MAP) Pulse Ox O2 O2 Flow FiO2 Time Delivery Rate 01/09/19 98.2 63 17 136/63 96 Room Air 14:00 (87) Intake and Output 01/08/19 01/08/19 01/09/19 1515:00 23:00 07:00 IntakeIntake Total 610 ml BalanceBalance 610 ml Constitutional: alert Psych: no complaints Head: normocephalic Eyes: nl conjunctiva Neck: supple Respiratory: diminished breath sounds Cardiovascular: regular rate and rhythm Gastrointestinal: soft, non-tender Musculoskeletal: nl extremities to inspection Extremities: normal pulses (left chest permacath) Results Result Diagram: 01/08/19 0513 01/08/19 0513 Results 24hrs Laboratory Tests Test 01/08/19 20:35 01/09/19 03:41 01/09/19 07:57 01/09/19 16:27 Bedside Glucose 98 89 84 128 Medications Medication Current Medications IV Flush (NS 3 ml) 3 ml PER PROTOCOL IV ; Start 11/16/18 at 09:00 Ondansetron HCl (Zofran Inj) 4 mg Q6H PRN IV NAUSEA AND/OR VOMITING Last administered on 12/31/18 11:45; Admin Dose 4 MG; Start 11/16/18 at 09:00 Hydralazine HCl (Apresoline) 10 mg Q4H PRN IV ELEVATED BLOOD PRESSURE Last administered on 12/22/18 19:40; Admin Dose 10 MG; Start 11/17/18 at 10:30 Acetaminophen/ Hydrocodone Bitart ([place] (5/325)) 1 tab Q3H PRN PO MODERATE PAIN LEVEL 4-6 Last administered on 01/07/19 22:08; Admin Dose 1 TAB; Start 11/17/18 at 14:30 Albumin Human 50 ml @ 100 mls/hr WITH DIALYSIS PRN IV SBP<90 Last administered on 01/05/19 10:17; Admin Dose 100 MLS/HR; Start 11/18/18 at 14:30 Morphine Sulfate (morphine) 6 mg Q4H PRN PO SEVERE PAIN LEVEL 7-10 Last administered on 01/09/19 02:34; Admin Dose 6 MG; Start 11/18/18 at 23:00 Docusate Sodium (Colace Liquid Cup) 100 mg DAILY GTB Last administered on 01/09/19 08:47; Admin Dose 100 MG; Start 11/19/18 at 09:30 Multivit/Ca Carb/ B Cmplx/FA/Prenat ([place]ianna-Roque) 1 tab DAILY GTB Last administered on 01/09/19 08:47; Admin Dose 1 TAB; Start 11/24/18 at 09:00 Lansoprazole (Prevacid) 30 mg DAILY GTB Last administered on 01/09/19 08:49; Admin Dose 30 MG; Start 11/26/18 at 09:00 Acetaminophen (Tylenol Supp) 650 mg Q4H PRN [place] MILD PAIN(1-3) OR TEMP>38C Last administered on 11/26/18 08:32; Admin Dose 650 MG; Start 11/26/18 at 08:30 Metoprolol Tartrate (Lopressor) 100 mg BID GTB Last administered on 01/09/19 08:50; Admin Dose 100 MG; Start 12/13/18 at 21:00 Aspirin (Halfprin) 81 mg DAILY PO Last administered on 01/09/19 08:50; Admin Dose 81 MG; Start 12/13/18 at 19:30 Senna (Senokot) 1 tab BID PO Last administered on 01/09/19 08:47; Admin Dose 1 TAB; Start 12/17/18 at 21:00 Acetaminophen (Tylenol Tab) 650 mg Q6H PRN PO PAIN LEVEL 1-3 OR FEVER Last administered on 12/21/18 05:01; Admin Dose 650 MG; Start 12/17/18 at 15:00 Albuterol/ Ipratropium (Duoneb) 3 ml Q6H RESP THERAPY PRN HHN sob Last administered on 12/19/18 03:51; Admin Dose 3 ML; Start 12/17/18 at 09:00 Docusate Sodium (Colace) 100 mg Q12H PRN PO CONSTIPATION Last administered on 12/21/18 05:01; Admin Dose 100 MG; Start 12/17/18 at 21:00 Ferrous Sulfate (Feosol Liquid Cup) 300 mg BID GTB Last administered on 01/09/19 08:47; Admin Dose 300 MG; Start 12/17/18 at 21:00 Guaifenesin/ Dextromethorphan (Robitussin Dm Liquid Cup) 5 ml Q4H PRN PO cough Last administered on 12/24/18 21:16; Admin Dose 5 ML; Start 12/17/18 at 18:00 Linagliptin (Tradjenta) 5 mg DAILY GTB Last administered on 01/09/19 08:47; Admin Dose 5 MG; Start 12/17/18 at 09:00 Folic Acid (Folic Acid) 1 mg DAILY GTB Last administered on 01/09/19 08:47; Admin Dose 1 MG; Start 12/18/18 at 09:00 Metoclopramide HCl (Reglan) 5 mg Q8 PRN IV VOMITTING; Start 12/20/18 at 10:00 IV Flush (NS 10 ml) 10 ml AFTER DIALYSIS CATHETER ; Start 12/22/18 at 10:00 Voriconazole (Vfend) 200 mg BID PO Last administered on 01/09/19 08:49; Admin Dose 200 MG; Start 12/22/18 at 11:00 Magnesium Hydroxide (Milk Of Mag) 30 ml DAILY PRN PO CONSTIPATION; Start 12/22/18 at 17:00 Sodium Chloride (NS) -To prime the dialy... DIRECTED FOR HD PRN IV HD; Start 12/23/18 at 16:00 Amlodipine Besylate (Norvasc) 5 mg DAILY GTB Last administered on 01/09/19 08:49; Admin Dose 5 MG; Start 12/25/18 at 15:30 Polyethylene Glycol (Miralax) 17 gm DAILY GTB Last administered on 01/09/19 08:47; Admin Dose 17 GM; Start 12/27/18 at 09:00 Insulin Glargine (Lantus) 4 units DAILY@2000 SC Last administered on 01/08/19 20:45; Admin Dose 4 UNITS; Start 12/28/18 at 20:00 Miscellaneous Information 1 ea NOTE XX ; Start 12/28/18 at 19:00 Glucose (Glutose) 15 gm Q15M PRN PO DECREASED GLUCOSE; Start 12/28/18 at 19:00 Glucose (Glutose) 22.5 gm Q15M PRN PO DECREASED GLUCOSE; Start 12/28/18 at 19:00 Dextrose (D50w Syringe) 25 ml Q15M PRN IV DECREASED GLUCOSE; Start 12/28/18 at 19:00 Dextrose (D50w Syringe) 50 ml Q15M PRN IV DECREASED GLUCOSE; Start 12/28/18 at 19:00 Glucagon (Glucagen) 1 mg Q15M PRN IM DECREASED GLUCOSE; Start 12/28/18 at 19:00 Glucose (Glutose) 15 gm Q15M PRN BUCCAL DECREASED GLUCOSE; Start 12/28/18 at 19:00 Sevelamer Carbonate (Renvela) 1.6 gm TID NGT Last administered on 01/09/19at 12:20; Admin Dose 1.6 GM; Start 12/31/18 at 13:00 Metoclopramide HCl (Reglan) 5 mg Q8 PO Last administered on 01/09/19at 14:11; Admin Dose 5 MG; Start 01/02/19 at 07:00 Olanzapine (Zyprexa) 5 mg DAILY PO Last administered on 01/09/19at 08:52; Admin Dose 5 MG; Start 01/07/19 at 09:00 AUGUSTINE MONIQUE NP Jan 09, 2019 17:07
--- NOTE | 2019-01-09 18:20 | PN ---
DATE: 01/09/2019 SUBJECTIVE: The patient was seen, comfortable, alert, confused, but overall doing well. OBJECTIVE: VITAL SIGNS: Temperature 98.2, pulse 62, respirations 13, blood pressure 136/63, saturation 96%. GENERAL: No acute distress. HEENT: The patient is pale. HEENT: Dry mucous membranes. CARDIOVASCULAR: S1, S2, regular rate. LUNGS: Clear. ABDOMEN: Soft. G-tube in place. EXTREMITIES: No clubbing, cyanosis or edema. LABORATORY DATA: White count 8.2, hemoglobin 8.4, hematocrit 27, platelet count of 277. Chemistry: No new labs today. Last glucose levels are 128, 84, 89 and 98, so more on the low side. MEDICATIONS: 1. Zyprexa. 2. Reglan. 3. Renvela. 4. Lantus 4 units at night, which may discontinue that tonight. 5. MiraLax as directed. 6. Norvasc. 7. Milk of Magnesia. 8. Vfend. 9. Folic acid. 10. Senna. 11. Colace. 12. Ferrous sulfate. 13. Robitussin. 14. Tylenol. 15. DuoNeb. 16. Tradjenta. 17. Lopressor. 18. Aspirin. 19. Prevacid. 20. Kianna-Roque. 21. Morphine. 22. [place]. 23. Zofran. ASSESSMENT AND PLAN: An 83-year-old Citizen Of [place] female with end-stage renal disease, advanced dementia, atherosclerotic cardiovascular disease, status post bacteremia, fungemia, urinary tract infection, s tatus post evacuation of right hand hematoma, treated briefly for aspiration pneumonia. 1. Respiratory. Status post Merrem. O2 support as needed. Clinically stable. 2. Hypertension, controlled. 3. End-stage renal disease on dialysis 3 times a week. Next dialysis is tomorrow. 4. Anemia, on Epogen. Monitor hemoglobin and hematocrit. 5. Diabetes mellitus, controlled. Hold Levemir as glucose is now in the 90s. 6. Urinary tract infection. Remains on Vfend. 7. Awaiting placement. corporate sales manager is assisting. We will follow. Dictated By: DYLON HULL/MADAN Conf#: [id number] DID#: [id number] CC: CHRISS WELCH MD;*EndCC*
[2019-01-09 20:45] VITALS: BP 165/73; PULSE 67; RESP 18
[2019-01-10] VITALS (17 sets, daily range): BP systolic 95–158; BP diastolic 35–86; PULSE 60–76; RESP 17–18
[2019-01-10] MEDS ORDERED: LORAZEPAM 0.5 MG TAB PO ONE (03:00)
[2019-01-10] MEDS: METOCLOPRAMIDE 5 MG TAB PO SCH ×2 (06:40→14:43)
--- NOTE | 2019-01-10 07:43 | CONS ---
Assessment/Plan Assessment/Plan Hospital Course (Demo Recall) 83 yo female in ESRD on HD presents for melena and anemia and also found to have edematous Rt hand/wrist Interval Hx: No acute changes. Tolerating tube feeds at 30cc. No evidence of GI bleeding. 1. UGIB manifested through melena and anemia -no melena noted or GI bleeding noted by nursing staff -RESOLVED 2. Anemia, acute on chronic, acute likely due to blood loss in rt hand -No evidence of active GI bleeding, consider etiology of blood loss anemia to be from hematoma in hand -Fe wnl, TIBC low, Ferritin, folate, b12 high, FOB neg -likely due to chronic disease 3. ESRD on HD -Followed by nephrology 4. Hematoma of Rt hand and wrist -I and D drainage by Dr. Dean 11/17 -IMPROVED 5. Dysphagia -on tube feeds 6. DM2 7. HTN 8. H/O diastolic dysfunction heart failure 9. S/P EGD 11/18 10. Moderate gastritis with no bleeding noted. 11. Hospital acquired pneumonia -improved 12. Yeast in urine cx -cx 12/20 12. Emesis -pt had another episode of emesis this am of just her medications after they were given. Residuals were 15cc prior to giving medications. The emesis contained only the medications no tube feeds. Gastric biopsy results: Stomach, biopsy: -- Antral and oxyntic mucosa showing minimal plasma cell infiltration and small focus of intestinal metaplasia. -- No Helicobacter pylori is identified in Giemsa stain (positive control concurrently reviewed). -- No evidence of dysplasia or malignancy. Plan: Pending SNF placement Consider GJ tube if pt continues to have episodes of vomiting Give medications in small doses Reglan 5 mg prior to meals, low dose to due ESRD Continue present care Pt examined and plan of care discussed with Dr. Baird Consultation Date/Type/Reason Admit Date/Time Nov 16, 2018 at 05:51 Initial Consult Date 11/16/18 Requesting Provider: DYLON WALLS MD Date/Time of Note DATE: 01/10/19 TIME: 07:42 24 HR Interval Summary Free Text/Dictation No acute changes. Exam/Review of Systems Exam Vitals Vital Signs Date Temp Pulse Resp B/P (MAP) Pulse Ox O2 O2 Flow FiO2 Time Delivery Rate 01/10/19 98.5 73 18 158/70 96 02:22 (99) 01/09/19 Room Air 14:00 Constitutional: alert Psych: no complaints Head: normocephalic Eyes: PERRL Gastrointestinal: soft, non-tender Musculoskeletal: muscle weakness 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: confused Results Result Diagram: 01/08/19 0513 01/08/19 0513 Results 24hrs Laboratory Tests Test 01/09/19 07:57 01/09/19 16:27 01/09/19 21:45 01/10/19 01:45 Bedside Glucose 84 128 149 127 Medications Medication Current Medications IV Flush (NS 3 ml) 3 ml PER PROTOCOL IV ; Start 11/16/18 at 09:00 Ondansetron HCl (Zofran Inj) 4 mg Q6H PRN IV NAUSEA AND/OR VOMITING Last administered on 12/31/18 11:45; Admin Dose 4 MG; Start 11/16/18 at 09:00 Hydralazine HCl (Apresoline) 10 mg Q4H PRN IV ELEVATED BLOOD PRESSURE Last administered on 12/22/18 19:40; Admin Dose 10 MG; Start 11/17/18 at 10:30 Acetaminophen/ Hydrocodone Bitart ([place] (5/325)) 1 tab Q3H PRN PO MODERATE PAIN LEVEL 4-6 Last administered on 01/07/19 22:08; Admin Dose 1 TAB; Start 11/17/18 at 14:30 Albumin Human 50 ml @ 100 mls/hr WITH DIALYSIS PRN IV SBP<90 Last administered on 01/05/19 10:17; Admin Dose 100 MLS/HR; Start 11/18/18 at 14:30 Morphine Sulfate (morphine) 6 mg Q4H PRN PO SEVERE PAIN LEVEL 7-10 Last administered on 01/09/19 02:34; Admin Dose 6 MG; Start 11/18/18 at 23:00 Docusate Sodium (Colace Liquid Cup) 100 mg DAILY GTB Last administered on 01/09/19 08:47; Admin Dose 100 MG; Start 11/19/18 at 09:30 Multivit/Ca Carb/ B Cmplx/FA/Prenat (Kianna-Roque) 1 tab DAILY GTB Last administered on 01/09/19 08:47; Admin Dose 1 TAB; Start 11/24/18 at 09:00 Lansoprazole (Prevacid) 30 mg DAILY GTB Last administered on 01/09/19 08:49; Admin Dose 30 MG; Start 11/26/18 at 09:00 Acetaminophen (Tylenol Supp) 650 mg Q4H PRN [place] MILD PAIN(1-3) OR TEMP>38C Last administered on 11/26/18 08:32; Admin Dose 650 MG; Start 11/26/18 at 08:30 Metoprolol Tartrate (Lopressor) 100 mg BID GTB Last administered on 01/09/19 21:16; Admin Dose 100 MG; Start 12/13/18 at 21:00 Aspirin (Halfprin) 81 mg DAILY PO Last administered on 01/09/19 08:50; Admin Dose 81 MG; Start 12/13/18 at 19:30 Senna (Senokot) 1 tab BID PO Last administered on 01/09/19 21:16; Admin Dose 1 TAB; Start 12/17/18 at 21:00 Acetaminophen (Tylenol Tab) 650 mg Q6H PRN PO PAIN LEVEL 1-3 OR FEVER Last administered on 12/21/18 05:01; Admin Dose 650 MG; Start 12/17/18 at 15:00 Albuterol/ Ipratropium (Duoneb) 3 ml Q6H RESP THERAPY PRN HHN sob Last administered on 12/19/18 03:51; Admin Dose 3 ML; Start 12/17/18 at 09:00 Docusate Sodium (Colace) 100 mg Q12H PRN PO CONSTIPATION Last administered on 12/21/18 05:01; Admin Dose 100 MG; Start 12/17/18 at 21:00 Ferrous Sulfate (Feosol Liquid Cup) 300 mg BID GTB Last administered on 01/09/19 21:14; Admin Dose 300 MG; Start 12/17/18 at 21:00 Guaifenesin/ Dextromethorphan (Robitussin Dm Liquid Cup) 5 ml Q4H PRN PO cough Last administered on 12/24/18 21:16; Admin Dose 5 ML; Start 12/17/18 at 18:00 Linagliptin (Tradjenta) 5 mg DAILY GTB Last administered on 01/09/19 08:47; Admin Dose 5 MG; Start 12/17/18 at 09:00 Folic Acid (Folic Acid) 1 mg DAILY GTB Last administered on 3/3/19at 08:47; Admin Dose 1 MG; Start 12/18/18 at 09:00 Metoclopramide HCl (Reglan) 5 mg Q8 PRN IV VOMITTING; Start 12/20/18 at 10:00 IV Flush (NS 10 ml) 10 ml AFTER DIALYSIS CATHETER ; Start 12/22/18 at 10:00 Voriconazole (Vfend) 200 mg BID PO Last administered on 01/09/19at 21:16; Admin Dose 200 MG; Start 12/22/18 at 11:00 Magnesium Hydroxide (Milk Of Mag) 30 ml DAILY PRN PO CONSTIPATION; Start 12/22/18 at 17:00 Sodium Chloride (NS) -To prime the dialy... DIRECTED FOR HD PRN IV HD; Start 12/23/18 at 16:00 Amlodipine Besylate (Norvasc) 5 mg DAILY GTB Last administered on 01/09/19 08:49; Admin Dose 5 MG; Start 12/25/18 at 15:30 Polyethylene Glycol (Miralax) 17 gm DAILY GTB Last administered on 01/09/19 08:47; Admin Dose 17 GM; Start 12/27/18 at 09:00 Insulin Glargine (Lantus) 4 units DAILY@2000 SC Last administered on 01/08/19 20:45; Admin Dose 4 UNITS; Start 12/28/18 at 20:00; Status Hold Miscellaneous Information 1 ea NOTE XX ; Start 12/28/18 at 19:00 Glucose (Glutose) 15 gm Q15M PRN PO DECREASED GLUCOSE; Start 12/28/18 at 19:00 Glucose (Glutose) 22.5 gm Q15M PRN PO DECREASED GLUCOSE; Start 12/28/18 at 19:00 Dextrose (D50w Syringe) 25 ml Q15M PRN IV DECREASED GLUCOSE; Start 12/28/18 at 19:00 Dextrose (D50w Syringe) 50 ml Q15M PRN IV DECREASED GLUCOSE; Start 12/28/18 at 19:00 Glucagon (Glucagen) 1 mg Q15M PRN IM DECREASED GLUCOSE; Start 12/28/18 at 19:00 Glucose (Glutose) 15 gm Q15M PRN BUCCAL DECREASED GLUCOSE; Start 12/28/18 at 19:00 Sevelamer Carbonate (Renvela) 1.6 gm TID NGT Last administered on 01/09/19at 21:15; Admin Dose 1.6 GM; Start 12/31/18 at 13:00 Metoclopramide HCl (Reglan) 5 mg Q8 PO Last administered on 01/10/19at 06:40; Admin Dose 5 MG; Start 01/02/19 at 07:00 Olanzapine (Zyprexa) 5 mg DAILY PO Last administered on 01/09/19at 08:52; Admin Dose 5 MG; Start 01/07/19 at 09:00 Lorazepam (Ativan) 0.5 mg HS PO ; Start 01/10/19 at 21:00 TONY VENCES Jan 10, 2019 07:43
[2019-01-10] MEDS: DOCUSATE SODIUM 10 MG/ML (10ML CUP) GTB SCH (08:38)
[2019-01-10] MEDS: LANSOPRAZOLE 30 MG CAP GTB SCH (08:38)
[2019-01-10] MEDS: FERROUS SULFATE 60 MG/ML 5ML CUP GTB SCH (08:38)
[2019-01-10] MEDS: AMLODIPINE 5 MG TAB GTB SCH (08:39)
[2019-01-10] MEDS: METOPROLOL 50 MG TAB GTB SCH (08:39)
[2019-01-10] MEDS: FOLIC ACID 1 MG TAB GTB SCH (08:40)
[2019-01-10] MEDS: OLANZAPINE 5 MG TAB PO SCH (08:40)
[2019-01-10] MEDS: SEVELAMER CARBONATE 0.8 GM PKT NGT SCH ×2 (08:40→14:43)
[2019-01-10] MEDS: LINAGLIPTIN 5 MG TABLET GTB SCH (08:40)
[2019-01-10] MEDS: POLYETHYLENE GLYCOL 17 GM PACKET GTB SCH (08:40)
[2019-01-10] MEDS: ASPIRIN (EC) 81 MG TAB PO SCH (08:40)
[2019-01-10] MEDS: SENNA TAB PO SCH (08:41)
[2019-01-10] MEDS: VORICONAZOLE 200 MG TAB PO SCH (08:41)
[2019-01-10] MEDS: MULTIVIT/CA CARB/B CMPLX/FA TAB GTB SCH (08:41)
--- NOTE | 2019-01-10 10:36 | CONS ---
Assessment/Plan Assessment/Plan Hospital Course (Demo Recall) Chart reviewed, all noted, pt looks comfortable, no fevers over night Antimicrobials: none Blood culture repeated on November 29 grew Dominique glabrata blood cultures since December 01 that were drawn from permacath negative blood culture on December 03 negative, urine culture growing C glabrata Indwelling: Left chest permacath, PEG Physical examination: Chronically ill-appearing elderly woman who is awake, confused, in no distress. Head atraumatic normocephalic. Neck is supple. Chest rise symmetrical breath sounds diminished bases. Heart: S1-S2. Abdomen soft bowel sounds present, right upper extremity Armani wrapped Assessment: 1. S/p recurrent aspiration event 2. Status post UTI==> T glabrata 3. S/p Fungemia secondary to urinary tract infection 4. Right hand hematoma, status post I&D 11/17/18 5. Status post VRE bacteremia/new Pcath 6. End-stage renal disease, hemodialysis dependent 7. Failure to thrive 8. Diabetes 9. Anemia 10. P Afib Plan: Patient is stable, off antibiotics, continue aspiration precautions, reculture prn Consultation Date/Type/Reason Admit Date/Time Nov 16, 2018 at 05:51 Initial Consult Date 11/16/18 Type of Consult id Requesting Provider: DYLON WALLS MD Date/Time of Note DATE: 01/10/19 TIME: 10:35 Exam/Review of Systems Exam Vitals Vital Signs Date Temp Pulse Resp B/P (MAP) Pulse Ox O2 O2 Flow FiO2 Time Delivery Rate 01/10/19 98.2 69 17 148/83 97 08:08 (104) 01/09/19 Room Air 14:00 Results Result Diagram: 01/08/19 0513 01/08/19 0513 Results 24hrs Laboratory Tests Test 01/09/19 16:27 01/09/19 21:45 01/10/19 01:45 01/10/19 07:42 Bedside Glucose 128 149 127 122 Medications Medication Current Medications IV Flush (NS 3 ml) 3 ml PER PROTOCOL IV ; Start 11/16/18 at 09:00 Ondansetron HCl (Zofran Inj) 4 mg Q6H PRN IV NAUSEA AND/OR VOMITING Last administered on 12/31/18at 11:45; Admin Dose 4 MG; Start 11/16/18 at 09:00 Hydralazine HCl (Apresoline) 10 mg Q4H PRN IV ELEVATED BLOOD PRESSURE Last adm inistered on 12/22/18 19:40; Admin Dose 10 MG; Start 11/17/18 at 10:30 Acetaminophen/ Hydrocodone Bitart ([place] (5/325)) 1 tab Q3H PRN PO MODERATE PAIN LEVEL 4-6 Last administered on 01/07/19 22:08; Admin Dose 1 TAB; Start 11/17/18 at 14:30 Albumin Human 50 ml @ 100 mls/hr WITH DIALYSIS PRN IV SBP<90 Last administered on 01/05/19 10:17; Admin Dose 100 MLS/HR; Start 11/18/18 at 14:30 Morphine Sulfate (morphine) 6 mg Q4H PRN PO SEVERE PAIN LEVEL 7-10 Last administered on 01/09/19 02:34; Admin Dose 6 MG; Start 11/18/18 at 23:00 Docusate Sodium (Colace Liquid Cup) 100 mg DAILY GTB Last administered on 01/10/19 08:38; Admin Dose 100 MG; Start 11/19/18 at 09:30 Multivit/Ca Carb/ B Cmplx/FA/Prenat (Kianna-Roque) 1 tab DAILY GTB Last administered on 01/10/19 08:41; Admin Dose 1 TAB; Start 11/24/18 at 09:00 Lansoprazole (Prevacid) 30 mg DAILY GTB Last administered on 01/10/19 08:38; Admin Dose 30 MG; Start 11/26/18 at 09:00 Acetaminophen (Tylenol Supp) 650 mg Q4H PRN SD MILD PAIN(1-3) OR TEMP>38C Last administered on 11/26/18 08:32; Admin Dose 650 MG; Start 11/26/18 at 08:30 Metoprolol Tartrate (Lopressor) 100 mg BID GTB Last administered on 01/10/19 08:39; Admin Dose 100 MG; Start 12/13/18 at 21:00 Aspirin (Halfprin) 81 mg DAILY PO Last administered on 01/10/19 08:40; Admin Dose 81 MG; Start 12/13/18 at 19:30 Senna (Senokot) 1 tab BID PO Last administered on 01/10/19 08:41; Admin Dose 1 TAB; Start 12/17/18 at 21:00 Acetaminophen (Tylenol Tab) 650 mg Q6H PRN PO PAIN LEVEL 1-3 OR FEVER Last administered on 12/21/18 05:01; Admin Dose 650 MG; Start 12/17/18 at 15:00 Albuterol/ Ipratropium (Duoneb) 3 ml Q6H RESP THERAPY PRN HHN sob Last administered on 12/19/18 03:51; Admin Dose 3 ML; Start 12/17/18 at 09:00 Docusate Sodium (Colace) 100 mg Q12H PRN PO CONSTIPATION Last administered on 12/21/18 05:01; Admin Dose 100 MG; Start 12/17/18 at 21:00 Ferrous Sulfate (Feosol Liquid Cup) 300 mg BID GTB Last administered on 01/10/19 08:38; Admin Dose 300 MG; Start 12/17/18 at 21:00 Guaifenesin/ Dextromethorphan (Robitussin Dm Liquid Cup) 5 ml Q4H PRN PO cough Last administered on 12/24/18 21:16; Admin Dose 5 ML; Start 12/17/18 at 18:00 Linagliptin (Tradjenta) 5 mg DAILY GTB Last administered on 01/10/19 08:40; Admin Dose 5 MG; Start 12/17/18 at 09:00 Folic Acid (Folic Acid) 1 mg DAILY GTB Last administered on 01/10/19 08:40; Admin Dose 1 MG; Start 12/18/18 at 09:00 Metoclopramide HCl (Reglan) 5 mg Q8 PRN IV VOMITTING; Start 12/20/18 at 10:00 IV Flush (NS 10 ml) 10 ml AFTER DIALYSIS CATHETER ; Start 12/22/18 at 10:00 Voriconazole (Vfend) 200 mg BID PO Last administered on 01/10/19 08:41; Admin Dose 200 MG; Start 12/22/18 at 11:00 Magnesium Hydroxide (Milk Of Mag) 30 ml DAILY PRN PO CONSTIPATION; Start 12/22/18 at 17:00 Sodium Chloride (NS) -To prime the dialy... DIRECTED FOR HD PRN IV HD; Start 12/23/18 at 16:00 Amlodipine Besylate (Norvasc) 5 mg DAILY GTB Last administered on 01/10/19 08:39; Admin Dose 5 MG; Start 12/25/18 at 15:30 Polyethylene Glycol (Miralax) 17 gm DAILY GTB Last administered on 01/10/19 08:40; Admin Dose 17 GM; Start 12/27/18 at 09:00 Insulin Glargine (Lantus) 4 units DAILY@2000 SC Last administered on 01/08/19 20:45; Admin Dose 4 UNITS; Start 12/28/18 at 20:00; Status Hold Miscellaneous Information 1 ea NOTE XX ; Start 12/28/18 at 19:00 Glucose (Glutose) 15 gm Q15M PRN PO DECREASED GLUCOSE; Start 12/28/18 at 19:00 Glucose (Glutose) 22.5 gm Q15M PRN PO DECREASED GLUCOSE; Start 12/28/18 at 19:00 Dextrose (D50w Syringe) 25 ml Q15M PRN IV DECREASED GLUCOSE; Start 12/28/18 at 19:00 Dextrose (D50w Syringe) 50 ml Q15M PRN IV DECREASED GLUCOSE; Start 12/28/18 at 19:00 Glucagon (Glucagen) 1 mg Q15M PRN IM DECREASED GLUCOSE; Start 12/28/18 at 19:00 Glucose (Glutose) 15 gm Q15M PRN BUCCAL DECREASED GLUCOSE; Start 12/28/18 at 19:00 Sevelamer Carbonate (Renvela) 1.6 gm TID NGT Last administered on 01/10/19 08:40; Admin Dose 1.6 GM; Start 12/31/18 at 13:00 Metoclopramide HCl (Reglan) 5 mg Q8 PO Last administered on 01/10/19 06:40; Admin Dose 5 MG; Start 01/02/19 at 07:00 Olanzapine (Zyprexa) 5 mg DAILY PO Last administered on 01/10/19 08:40; Admin Dose 5 MG; Start 01/07/19 at 09:00 Lorazepam (Ativan) 0.5 mg HS PO ; Start 01/10/19 at 21:00 PHYLICIA HOLCOMB NP Jan 10, 2019 10:36
[2019-01-10] MEDS: ALBUMIN HUMAN 25% 50 ML IV PRN (10:57)
--- NOTE | 2019-01-10 15:08 | CONS ---
Assessment/Plan Assessment/Plan Hospital Course (Demo Recall) 83 y/o with Hospital Course (Demo Recall) 1. End-stage renal disease on hemodialysis.MWF 2. Gastrointestinal bleed with melena.resolved 3. Hypertension. 4. Diabetes. 5. Right hand swelling, s/p I and D on 11/17/18 6. History of falls. 7. Vascular dementia. 8. History of sepsis with VRE. 9. Dysphagia, status post G-tube. 10. History of hip fracture. 11. Thrombocytopenia. 12. Atherosclerotic heart disease. 13. Pneumonia left side 14. Anemia 15 YEAST BACTERIMIA LIKELY DUE TO UTI resolves 16 Paroxsymal AFib now in sinus Assessment/Plan (Daily) - Hd MWF, Hd today - cw with permacath -avoid nephrotoxic drugs -HD MWFr -c/w epogen - Aspiration precautions DC plANNING DC planning Consultation Date/Type/Reason Admit Date/Time Nov 16, 2018 at 05:51 Initial Consult Date 11/16/18 Requesting Provider: DYLON AWLLS MD Date/Time of Note DATE: 01/10/19 TIME: 15:07 24 HR Interval Summary Free Text/Dictation sp hd today pending placment Exam/Review of Systems Exam Vitals Vital Signs Date Temp Pulse Resp B/P (MAP) Pulse Ox O2 O2 Flow FiO2 Time Delivery Rate 01/10/19 97.8 76 18 141/86 98 15:04 (104) 01/10/19 Room Air 10:20 Exam Exam left chest permcath Constitutional: alert, oriented (x2) Eyes: nl conjunctiva ENMT: nl external ears & nose Respiratory: clear to auscultation Cardiovascular: regular rate and rhythm Gastrointestinal: soft, surgical scars Results Result Diagram: 01/08/19 0513 01/08/19 0513 Results 24hrs Laboratory Tests Test 01/09/19 16:27 01/09/19 21:45 01/10/19 01:45 01/10/19 07:42 Bedside Glucose 128 149 127 122 Test 01/10/19 13:59 Bedside Glucose 132 Medications Medication Current Medications IV Flush (NS 3 ml) 3 ml PER PROTOCOL IV ; Start 11/16/18 at 09:00 Ondansetron HCl (Zofran Inj) 4 mg Q6H PRN IV NAUSEA AND/OR VOMITING Last administered on 12/31/18at 11:45; Admin Dose 4 MG; Start 11/16/18 at 09:00 Hydralazine HCl (Apresoline) 10 mg Q4H PRN IV ELEVATED BLOOD PRESSURE Last administered on 12/22/18 19:40; Admin Dose 10 MG; Start 11/17/18 at 10:30 Acetaminophen/ Hydrocodone Bitart ([place] (5/325)) 1 tab Q3H PRN PO MODERATE PAIN LEVEL 4-6 Last administered on 01/07/19 22:08; Admin Dose 1 TAB; Start 11/17/18 at 14:30 Albumin Human 50 ml @ 100 mls/hr WITH DIALYSIS PRN IV SBP<90 Last administered on 01/10/19 10:57; Admin Dose 100 MLS/HR; Start 11/18/18 at 14:30 Morphine Sulfate (morphine) 6 mg Q4H PRN PO SEVERE PAIN LEVEL 7-10 Last administered on 01/09/19 02:34; Admin Dose 6 MG; Start 11/18/18 at 23:00 Docusate Sodium (Colace Liquid Cup) 100 mg DAILY GTB Last administered on 08:38; Admin Dose 100 MG; Start 11/19/18 at 09:30 Multivit/Ca Carb/ B Cmplx/FA/Prenat (Kianna-Roque) 1 tab DAILY GTB Last administered on 01/10/19 08:41; Admin Dose 1 TAB; Start 11/24/18 at 09:00 Lansoprazole (Prevacid) 30 mg DAILY GTB Last administered on 01/10/19 08:38; Admin Dose 30 MG; Start 11/26/18 at 09:00 Acetaminophen (Tylenol Supp) 650 mg Q4H PRN [place] MILD PAIN(1-3) OR TEMP>38C Last administered on 11/26/18 08:32; Admin Dose 650 MG; Start 11/26/18 at 08:30 Metoprolol Tartrate (Lopressor) 100 mg BID GTB Last administered on 01/10/19 08:39; Admin Dose 100 MG; Start 12/13/18 at 21:00 Aspirin (Halfprin) 81 mg DAILY PO Last administered on 01/10/19 08:40; Admin Dose 81 MG; Start 12/13/18 at 19:30 Senna (Senokot) 1 tab BID PO Last administered on 01/10/19 08:41; Admin Dose 1 TAB; Start 12/17/18 at 21:00 Acetaminophen (Tylenol Tab) 650 mg Q6H PRN PO PAIN LEVEL 1-3 OR FEVER Last administered on 12/21/18 05:01; Admin Dose 650 MG; Start 12/17/18 at 15:00 Albuterol/ Ipratropium (Duoneb) 3 ml Q6H RESP THERAPY PRN HHN sob Last administered on 12/19/18 03:51; Admin Dose 3 ML; Start 12/17/18 at 09:00 Docusate Sodium (Colace) 100 mg Q12H PRN PO CONSTIPATION Last administered on 12/21/18 05:01; Admin Dose 100 MG; Start 12/17/18 at 21:00 Ferrous Sulfate (Feosol Liquid Cup) 300 mg BID GTB Last administered on 01/10/19 08:38; Admin Dose 300 MG; Start 12/17/18 at 21:00 Guaifenesin/ Dextromethorphan (Robitussin Dm Liquid Cup) 5 ml Q4H PRN PO cough Last administered on 12/24/18 21:16; Admin Dose 5 ML; Start 12/17/18 at 18:00 Linagliptin (Tradjenta) 5 mg DAILY GTB Last administered on 01/10/19 08:40; Admin Dose 5 MG; Start 12/17/18 at 09:00 Folic Acid (Folic Acid) 1 mg DAILY GTB Last administered on 01/10/19 08:40; Admin Dose 1 MG; Start 12/18/18 at 09:00 Metoclopramide HCl (Reglan) 5 mg Q8 PRN IV VOMITTING; Start 12/20/18 at 10:00 IV Flush (NS 10 ml) 10 ml AFTER DIALYSIS CATHETER ; Start 12/22/18 at 10:00 Voriconazole (Vfend) 200 mg BID PO Last administered on 01/10/19 08:41; Admin Dose 200 MG; Start 12/22/18 at 11:00 Magnesium Hydroxide (Milk Of Mag) 30 ml DAILY PRN PO CONSTIPATION; Start 12/22/18 at 17:00 Sodium Chloride (NS) -To prime the dialy... DIRECTED FOR HD PRN IV HD; Start 12/23/18 at 16:00 Amlodipine Besylate (Norvasc) 5 mg DAILY GTB Last administered on 01/10/19 08:39; Admin Dose 5 MG; Start 12/25/18 at 15:30 Polyethylene Glycol (Miralax) 17 gm DAILY GTB Last administered on 01/10/19 08:40; Admin Dose 17 GM; Start 12/27/18 at 09:00 Insulin Glargine (Lantus) 4 units DAILY@2000 SC Last administered on 01/08/19 20:45; Admin Dose 4 UNITS; Start 12/28/18 at 20:00; Status Hold Miscellaneous Information 1 ea NOTE XX ; Start 12/28/18 at 19:00 Glucose (Glutose) 15 gm Q15M PRN PO DECREASED GLUCOSE; Start 12/28/18 at 19:00 Glucose (Glutose) 22.5 gm Q15M PRN PO DECREASED GLUCOSE; Start 12/28/18 at 19:00 Dextrose (D50w Syringe) 25 ml Q15M PRN IV DECREASED GLUCOSE; Start 12/28/18 at 19:00 Dextrose (D50w Syringe) 50 ml Q15M PRN IV DECREASED GLUCOSE; Start 12/28/18 at 19:00 Glucagon (Glucagen) 1 mg Q15M PRN IM DECREASED GLUCOSE; Start 12/28/18 at 19:00 Glucose (Glutose) 15 gm Q15M PRN BUCCAL DECREASED GLUCOSE; Start 12/28/18 at 19:00 Sevelamer Carbonate (Renvela) 1.6 gm TID NGT Last administered on 01/10/19 14:43; Admin Dose 1.6 GM; Start 12/31/18 at 13:00 Metoclopramide HCl (Reglan) 5 mg Q8 PO Last administered on 01/10/19 14:43; Admin Dose 5 MG; Start 01/02/19 at 07:00 Olanzapine (Zyprexa) 5 mg DAILY PO Last administered on 01/10/19 08:40; Admin Dose 5 MG; Start 01/07/19 at 09:00 Lorazepam (Ativan) 0.5 mg HS PO ; Start 01/10/19 at 21:00 JOSE RAUL ANDREWS MD Jan 10, 2019 15:08
--- NOTE | 2019-01-10 16:45 | CONS ---
Consult Date/Type/Reason Admit Date/Time Nov 16, 2018 at 05:51 Initial Consult Date 11/16/18 Type of Consultation: cv Requesting Provider: DYLON WALLS MD Date/Time of Note DATE: 01/10/19 TIME: 16:43 Subjective Cardiology follow up note Sl DW/ Staff . Patient is off tele now. pt has been less agitated now no report of any chest pain or pressure or palpitations but pt is a very poor historian Events noted. 12/13/18: Patient went into atrial fibrillation rapid ventricular response during hemodialysis . Patient has been transferred to telemetry and converted back to sinus rhythm remains in sinus rhythm s/p I/D 11/17 EGD 11.18.18 O: General: Elderly frail female in no acute distress HEENT: NC/AT. Eyes are closed NECK: NO JVD. no stridor. CV: RRR. systolic murmur; no gallop or rubs. PULM: no wheezing or rhonchi. GI: SOFT, NT, ND, no rebound or guarding neuro: Comfortably sleeping now Psych: calm now rectal: deferred Objective Vitals Vital Signs Date Temp Pulse Resp B/P (MAP) Pulse Ox O2 O2 Flow FiO2 Time Delivery Rate 01/10/19 97.8 76 18 141/86 98 15:04 (104) 01/10/19 Room Air 10:20 Results/Medications Result Diagram: 01/08/19 0513 01/08/19 0513 Results 24 hrs Laboratory Tests Test 01/09/19 21:45 01/10/19 01:45 01/10/19 07:42 01/10/19 13:59 Bedside Glucose 149 127 122 132 Home Meds Reported Medications Sennosides* (Senna Lax*) 8.6 Mg Tablet, 1 TAB PO BID, TAB 11/16/18 Sevelamer Carbonate* (Renvela*) 0.8 Gm Powd.pack, 0.8 GM PO WITH MEALS, PACKET 11/16/18 Lansoprazole* (Lansoprazole*) 30 Mg Capsule.dr, 30 MG PO QAM, CAP 11/16/18 Hydralazine Hcl* (Hydralazine Hcl*) 25 Mg Tab, 25 MG PO Q8, #90 TAB 11/16/18 Ferrous Sulfate* (Ferrous Sulfate*) 325 Mg Tabec, 325 MG PO BID for anemia, TAB 11/16/18 Valproate Sodium (Valproic Acid) 250 Mg/5 Ml Solution, 250 MG PO Q8, ML 11/16/18 Insulin Aspart* (Novolog Insulin Pen*) 100 Unit/Ml Soln, 0 SC .SLIDING SCALE AC, EA IF BS 160-200=2 UNITS,201-250=4 UNITS,251-300=8 UNITS,301-350=12 UNITS;351-400=16 UNITS THEN CALL . 10/16/18 Ondansetron Hcl* (Zofran*) 4 Mg Tab, 4 MG GTB Q4H PRN for NAUSEA AND OR VOMITING, TAB 10/16/18 Linagliptin (TRADJENTA) 5 Mg Tablet, 5 MG GTB DAILY, TAB 10/16/18 Quetiapine Fumarate* (Seroquel*) 25 Mg Tablet, 25 MG GTB BID, #60 TAB 10/16/18 [Nephro-Roque] No Conflict Check, 0.8 MG GTB DAILY 10/16/18 Polyethylene Glycol* (Miralax*) 17 Gm Powd.pack, 17 GM GTB Q24H, #30 PACKET 10/16/18 Metoprolol Tartrate* (Lopressor*) 50 Mg Tab, 50 MG GTB DAILY, #60 TAB Q MON,WED,FRI,SUN,HOLD FOR SBP<110 OR ME<60 10/16/18 Metoprolol Tartrate* (Lopressor*) 50 Mg Tab, 50 MG GTB BID, #60 TAB QTUE,ANDREW,SAT,HOLD FOR SBP<110 OR ME<60 10/16/18 Linaclotide (LINZESS) 145 Mcg Capsule, 145 MCG GTB DAILY, #30 CAP 10/16/18 Ipratropium-Albuterol (Ipratropium-Albuterol) 0.5-3 Mg/3 Ml Ampul.neb, 3 ML INHALATION Q6, #30 VIAL FOR 14 DAYS,STOP DATE 10/17/18 10/16/18 Hydralazine Hcl* (Hydralazine Hcl*) 25 Mg Tab, 25 MG GTB DAILY, #60 TAB Q TUE,ANDREW,SAT,HOLD IF SBP<110 OR ME<60 10/16/18 Folic Acid* (Folic Acid*) 1 Mg Tablet, 1 MG GTB DAILY, TAB 10/16/18 Docusate Sodium* (Colace*) 100 Mg Capsule, 100 MG GTB DAILY, #30 CAP 10/16/18 Lorazepam* (Lorazepam*) 1 Mg Tablet, 1 MG GTB HS PRN for ANXIETY, #30 TAB Q TUE,ANDREW,SAT 10/16/18 Amlodipine Besylate* (Norvasc*) 5 Mg Tablet, 5 MG GTB BID, TAB TAKE Q TUE,ANDREW,SAT FOR HTN, HOLD FOR SBP<110 OR ME<60 10/16/18 Acetaminophen* (Acetaminophen*) 650 Mg Tablet, 650 MG GTB Q6H PRN for PAIN LEVEL 1-08/18, #30 TAB 10/16/18 Medications Current Medications IV Flush (NS 3 ml) 3 ml PER PROTOCOL IV ; Start 11/16/18 at 09:00 Ondansetron HCl (Zofran Inj) 4 mg Q6H PRN IV NAUSEA AND/OR VOMITING Last administered on 12/31/18 11:45; Admin Dose 4 MG; Start 11/16/18 at 09:00 Hydralazine HCl (Apresoline) 10 mg Q4H PRN IV ELEVATED BLOOD PRESSURE Last administered on 12/22/18 19:40; Admin Dose 10 MG; Start 11/17/18 at 10:30 Acetaminophen/ Hydrocodone Bitart ([place] (5/325)) 1 tab Q3H PRN PO MODERATE PAIN LEVEL 4-6 Last administered on 01/07/19 22:08; Admin Dose 1 TAB; Start 11/17/18 at 14:30 Albumin Human 50 ml @ 100 mls/hr WITH DIALYSIS PRN IV SBP<90 Last administered on 01/10/19 10:57; Admin Dose 100 MLS/HR; Start 11/18/18 at 14:30 Morphine Sulfate (morphine) 6 mg Q4H PRN PO SEVERE PAIN LEVEL 7-10 Last administered on 01/09/19 02:34; Admin Dose 6 MG; Start 11/18/18 at 23:00 Docusate Sodium (Colace Liquid Cup) 100 mg DAILY GTB Last administered on 01/10/19 08:38; Admin Dose 100 MG; Start 11/19/18 at 09:30 Multivit/Ca Carb/ B Cmplx/FA/Prenat (Kianna-Roque) 1 tab DAILY GTB Last administered on 01/10/19 08:41; Admin Dose 1 TAB; Start 11/24/18 at 09:00 Lansoprazole (Prevacid) 30 mg DAILY GTB Last administered on 01/10/19 08:38; Admin Dose 30 MG; Start 11/26/18 at 09:00 Acetaminophen (Tylenol Supp) 650 mg Q4H PRN ME MILD PAIN(1-3) OR TEMP>38C Last administered on 11/26/18 08:32; Admin Dose 650 MG; Start 11/26/18 at 08:30 Metoprolol Tartrate (Lopressor) 100 mg BID GTB Last administered on 01/10/19 08:39; Admin Dose 100 MG; Start 12/13/18 at 21:00 Aspirin (Halfprin) 81 mg DAILY PO Last administered on 01/10/19 08:40; Admin Dose 81 MG; Start 12/13/18 at 19:30 Senna (Senokot) 1 tab BID PO Last administered on 01/10/19 08:41; Admin Dose 1 TAB; Start 12/17/18 at 21:00 Acetaminophen (Tylenol Tab) 650 mg Q6H PRN PO PAIN LEVEL 1-3 OR FEVER Last administered on 12/21/18 05:01; Admin Dose 650 MG; Start 12/17/18 at 15:00 Albuterol/ Ipratropium (Duoneb) 3 ml Q6H RESP THERAPY PRN HHN sob Last administered on 12/19/18 03:51; Admin Dose 3 ML; Start 12/17/18 at 09:00 Docusate Sodium (Colace) 100 mg Q12H PRN PO CONSTIPATION Last administered on 12/21/18 05:01; Admin Dose 100 MG; Start 12/17/18 at 21:00 Ferrous Sulfate (Feosol Liquid Cup) 300 mg BID GTB Last administered on 01/10/19 08:38; Admin Dose 300 MG; Start 12/17/18 at 21:00 Guaifenesin/ Dextromethorphan (Robitussin Dm Liquid Cup) 5 ml Q4H PRN PO cough Last administered on 12/24/18 21:16; Admin Dose 5 ML; Start 12/17/18 at 18:00 Linagliptin (Tradjenta) 5 mg DAILY GTB Last administered on 01/10/19 08:40; Admin Dose 5 MG; Start 12/17/18 at 09:00 Folic Acid (Folic Acid) 1 mg DAILY GTB Last administered on 01/10/19 08:40; Adm in Dose 1 MG; Start 12/18/18 at 09:00 Metoclopramide HCl (Reglan) 5 mg Q8 PRN IV VOMITTING; Start 12/20/18 at 10:00 IV Flush (NS 10 ml) 10 ml AFTER DIALYSIS CATHETER ; Start 12/22/18 at 10:00 Voriconazole (Vfend) 200 mg BID PO Last administered on 01/10/19 08:41; Admin Dose 200 MG; Start 12/22/18 at 11:00 Magnesium Hydroxide (Milk Of Mag) 30 ml DAILY PRN PO CONSTIPATION; Start 12/22/18 at 17:00 Sodium Chloride (NS) -To prime the dialy... DIRECTED FOR HD PRN IV HD; Start 12/23/18 at 16:00 Amlodipine Besylate (Norvasc) 5 mg DAILY GTB Last administered on 01/10/19 08:39; Admin Dose 5 MG; Start 12/25/18 at 15:30 Polyethylene Glycol (Miralax) 17 gm DAILY GTB Last administered on 01/10/19 08:40; Admin Dose 17 GM; Start 12/27/18 at 09:00 Insulin Glargine (Lantus) 4 units DAILY@2000 SC Last administered on 01/08/19 20:45; Admin Dose 4 UNITS; Start 12/28/18 at 20:00; Status Hold Miscellaneous Information 1 ea NOTE XX ; Start 12/28/18 at 19:00 Glucose (Glutose) 15 gm Q15M PRN PO DECREASED GLUCOSE; Start 12/28/18 at 19:00 Glucose (Glutose) 22.5 gm Q15M PRN PO DECREASED GLUCOSE; Start 12/28/18 at 19:00 Dextrose (D50w Syringe) 25 ml Q15M PRN IV DECREASED GLUCOSE; Start 12/28/18 at 19:00 Dextrose (D50w Syringe) 50 ml Q15M PRN IV DECREASED GLUCOSE; Start 12/28/18 at 19:00 Glucagon (Glucagen) 1 mg Q15M PRN IM DECREASED GLUCOSE; Start 12/28/18 at 19:00 Glucose (Glutose) 15 gm Q15M PRN BUCCAL DECREASED GLUCOSE; Start 12/28/18 at 19:00 Sevelamer Carbonate (Renvela) 1.6 gm TID NGT Last administered on 01/10/19 14:43; Admin Dose 1.6 GM; Start 12/31/18 at 13:00 Metoclopramide HCl (Reglan) 5 mg Q8 PO Last administered on 01/10/19 14:43; Admin Dose 5 MG; Start 01/02/19 at 07:00 Olanzapine (Zyprexa) 5 mg DAILY PO Last administered on 01/10/19 08:40; Admin Dose 5 MG; Start 01/07/19 at 09:00 Lorazepam (Ativan) 0.5 mg HS PO ; Start 01/10/19 at 21:00 Assessment/Plan Hospital Course (Demo Recall) P-atrial fibrillation rapid ventricular response: Currently back in sinus rhythm fungemia /fungal urinary tract infection Status post right hand hematoma: Status post I&D Renal failure on dialysis Hypertension Dementia Anemia AI Recommendations: pt is not on full anticoagulation due to the fall risk as well as anemia cont beta-farrah Dialysis as per renal team Neuro workup and treatment as per internal medicine Antibiotic as per ID and internal medicine asa for now and monitor dc planning is in process Thank you for his referral. We will continue to follow along with you as needed basis CHRISTEN ESCOBEDO MD [facility] CHRISTEN ESCOBEDO MD Jan 10, 2019 16:45
--- NOTE | 2019-01-10 17:21 | PDOCDIS ---
Discharge Instructions CONDITION [id number] Patient Condition: [id number] Stable HOME CARE INSTRUCTIONS: [id number] Special Diet: [id number] Bolus GTF; Pureed Diet FOLLOW UP/APPOINTMENTS Follow-up Plan see reconciliation, [facility] DYLON WALLS MD Jan 10, 2019 17:21
[2019-01-10] MEDS: hydrALAzine 20 MG INJ IV PRN (18:00)
[2019-01-10] MEDS: HYDROCODONE/APAP (5/325) TAB PO PRN (18:14)
--- NOTE | 2019-01-10 19:52 | DS ---
DATE OF ADMISSION: 11/16/2018 DATE OF DISCHARGE: 01/10/2019 REASON FOR ADMISSION: GI bleed, right hand hematoma. HOSPITAL COURSE: The patient is an 83-year-old [place] female, very frail with end-stage renal dise ase on dialysis 3 times a week under the care of Dr. Juliocesar Stringer, also history of diastolic dysfunct ion heart failure, diabetes mellitus type 2 controlled, hypertension, vascular dementia, anxiety diso rder, who unfortunately has been declining. She has had frequent falls. Now, she has been monitored closely. The patient was recently admitted to [facility] due to slight sepsis and VRE bacteremia. She was at [facility] and she was noted to have black stools. Also, she had right hand swelling. During her hospitalization, she underwent I and D by Dr. Juan Miranda on 07/2019. Basically, I and D of extensive hematoma from the dorsal aspect of the right hand and closur e over a Guido-Tran tube. The patient tolerated the procedure well. During her hospitalization, the patient was seen by the GI specialist due to possible GI bleed and underwent a GI procedure on . The patient underwent EGD and showed chronic gastritis, G-tube balloon identified, normal internal stoma, normal duodenum and ampulla, nonspecific chronic gastritis without bleeding. The [facility]'s pathology report shows no H. pylori, no evidence of dysplasia. See report. During her stay, she was found to have a UTI and Dominique glabrata fungemia. She was treated with IV antifungal therap y and then Vfend. Also urine culture showed the same. Also during her stay, she was treated for asp iration precaution. She received intermittent transfusions and seen by multiple physicians including Dr. Stevens, the die baker, Dr. Natarajan and Dr. Stringer, the arts administrator, Dr. Baird, the GI special ist, Dr. Proctor, the infectious disease specialist and Dr. Juan Miranda, the hardwood flooring specialist. The patient slowly improved due to high risk of aspiration. She is kept n.p.o. but getting feeding at 3 0 mL an hour. She has been on antiemetics. The patient continues to improve and now she will be dis charged to retirement facility with the following medications: 1. Tylenol 650 q.4 p.r.n. 2. DuoNeb every 6 hours p.r.n. for shortness of breath. 3. Norvasc 5 mg daily. 4. Aspirin 81 mg daily. 5. Colace 100 b.i.d. and p.r.n. 6. Ferrous sulfate 325 b.i.d. 7. Folic acid 1 mg daily. 8. Robitussin p.r.n. for cough. 9. Insulin Lantus 4 units at bedtime. 10. Prevacid 30 mg daily. 11. Tradjenta 5 mg daily. 12. Ativan 0.5 at bedtime as scheduled. 13. Milk of Magnesia as directed., 14. Reglan q.8 hours x5 days then p.r.n. 15. Lopressor 100 b.i.d. 16. Kianna-Roque 1 tab daily. 17. Zyprexa 5 mg daily. 18. Zofran p.o. q.4 p.r.n. 19. MiraLax 17 grams daily. 20. Senna 1 tab daily. 21. Renvela as directed t.i.d. 1.6 gram. her Vfend. FINAL DIAGNOSES: Include: 1. Right hand hematoma status post incision and drainage. 2. End-stage renal disease. 3. Anemia requiring transfusion. 4. Rule out gastrointestinal bleed. 5. Gastritis. 6. Encephalopathy, multifactorial, toxic metabolic. 7. Aspiration pneumonia. 8. Urinary tract infection. 9. Fungemia. 10. Dementia with behavioral disturbances. 11. Alzheimer dementia. 12. Diabetes mellitus. 13. Constipation. 14. Hypertension. 15. Osteoarthritis. 16. History of chronic obstructive pulmonary disease. 17. Diastolic dysfunction heart failure. 18. Dysphagia. 19. Moderate caloric protein malnutrition. Fci prognosis is not very good. Family still wants everything done and not very realistic. I h ave been in touch with family throughout this hospitalization. They are aware of plan of care. Epog en can be continued as an outpatient with dialysis center. DISCHARGE INSTRUCTIONS: The patient is to follow up with PCP and her dialysis session. Fall precaut ions to be written as well. DIET: Via G-tube with 30 mL an hour with aspiration precautions. Dictated By: DYLON HULL/MADAN Conf#: [id number] [facility]#: [id number] CC: CHRISS BAIRD MD;*End*
[2019-01-10] MEDS ORDERED: LORAZEPAM 1 MG TAB PO SCH (21:00)
== END 2019-01-10 18:39 | DRG 555 ==
LOC: E/R 02:09 → PP2 05:51 → CANRESERV 07:51 → TEL 12-13 13:53 → PP2 12-15 18:30 → TEL 12-19 17:06 → 5EC 12-22 21:52 → PP2 12-23 11:40
PROVIDERS: ADMIT Internal Medicine; ATTEND Internal Medicine
PROC: 30233N1 Transfusion of Nonautologous Red Blood Cells into Peripheral Vein, Percutaneous Approach (ICD-10-PCS; 2018-11-17)
PROC: 5A1D70Z Performance of Urinary Filtration, Intermittent, Less than 6 Hours Per Day (ICD-10-PCS; 2018-11-17)
PROC: 0X9J00Z Drainage of Right Hand with Drainage Device, Open Approach (ICD-10-PCS; principal; 2018-11-17 12:30)
PROC: 0DD68ZX Extraction of Stomach, Via Natural or Artificial Opening Endoscopic, Diagnostic (ICD-10-PCS; 2018-11-18)
PROC: 5A1D70Z Performance of Urinary Filtration, Intermittent, Less than 6 Hours Per Day (ICD-10-PCS; 2018-11-19)
PROC: 5A1D70Z Performance of Urinary Filtration, Intermittent, Less than 6 Hours Per Day (ICD-10-PCS; 2018-11-22)
PROC: 5A1D70Z Performance of Urinary Filtration, Intermittent, Less than 6 Hours Per Day (ICD-10-PCS; 2018-11-24)
PROC: 5A1D70Z Performance of Urinary Filtration, Intermittent, Less than 6 Hours Per Day (ICD-10-PCS; 2018-11-26)
PROC: 5A1D70Z Performance of Urinary Filtration, Intermittent, Less than 6 Hours Per Day (ICD-10-PCS; 2018-11-29)
PROC: 5A1D70Z Performance of Urinary Filtration, Intermittent, Less than 6 Hours Per Day (ICD-10-PCS; 2018-12-01)
PROC: 5A1D70Z Performance of Urinary Filtration, Intermittent, Less than 6 Hours Per Day (ICD-10-PCS; 2018-12-03)
PROC: 5A1D70Z Performance of Urinary Filtration, Intermittent, Less than 6 Hours Per Day (ICD-10-PCS; 2018-12-06)
PROC: 5A1D70Z Performance of Urinary Filtration, Intermittent, Less than 6 Hours Per Day (ICD-10-PCS; 2018-12-08)
PROC: 5A1D70Z Performance of Urinary Filtration, Intermittent, Less than 6 Hours Per Day (ICD-10-PCS; 2018-12-10)
PROC: 5A1D70Z Performance of Urinary Filtration, Intermittent, Less than 6 Hours Per Day (ICD-10-PCS; 2018-12-13)
PROC: 5A1D70Z Performance of Urinary Filtration, Intermittent, Less than 6 Hours Per Day (ICD-10-PCS; 2018-12-15)
PROC: 5A1D70Z Performance of Urinary Filtration, Intermittent, Less than 6 Hours Per Day (ICD-10-PCS; 2018-12-17)
PROC: 5A1D70Z Performance of Urinary Filtration, Intermittent, Less than 6 Hours Per Day (ICD-10-PCS; 2018-12-20)
PROC: 5A1D70Z Performance of Urinary Filtration, Intermittent, Less than 6 Hours Per Day (ICD-10-PCS; 2018-12-22)
PROC: 5A1D70Z Performance of Urinary Filtration, Intermittent, Less than 6 Hours Per Day (ICD-10-PCS; 2018-12-24)
PROC: 5A1D70Z Performance of Urinary Filtration, Intermittent, Less than 6 Hours Per Day (ICD-10-PCS; 2018-12-27)
PROC: 5A1D70Z Performance of Urinary Filtration, Intermittent, Less than 6 Hours Per Day (ICD-10-PCS; 2018-12-29)
PROC: 5A1D70Z Performance of Urinary Filtration, Intermittent, Less than 6 Hours Per Day (ICD-10-PCS; 2018-12-31)
PROC: 5A1D70Z Performance of Urinary Filtration, Intermittent, Less than 6 Hours Per Day (ICD-10-PCS; 2019-01-03)
PROC: 5A1D70Z Performance of Urinary Filtration, Intermittent, Less than 6 Hours Per Day (ICD-10-PCS; 2019-01-05)
PROC: 5A1D70Z Performance of Urinary Filtration, Intermittent, Less than 6 Hours Per Day (ICD-10-PCS; 2019-01-07)
PROC: 5A1D70Z Performance of Urinary Filtration, Intermittent, Less than 6 Hours Per Day (ICD-10-PCS; 2019-01-10)
DX: M79.81 Nontraumatic hematoma of soft tissue (principal); N18.6 End stage renal disease; E43 Unspecified severe protein-calorie malnutrition; J69.0 Pneumonitis due to inhalation of food and vomit; A41.9 Sepsis, unspecified organism; D62 Acute posthemorrhagic anemia; I13.2 Hypertensive heart and chronic kidney disease with heart failure and with stage 5 chronic kidney disease, or end stage renal disease; I50.32 Chronic diastolic (congestive) heart failure; Z68.1 Body mass index [BMI] 19.9 or less, adult; B49 Unspecified mycosis; N39.0 Urinary tract infection, site not specified; I48.0 Paroxysmal atrial fibrillation; E11.22 Type 2 diabetes mellitus with diabetic chronic kidney disease; Z99.2 Dependence on renal dialysis; K29.70 Gastritis, unspecified, without bleeding; K59.00 Constipation, unspecified; M19.90 Unspecified osteoarthritis, unspecified site; R13.10 Dysphagia, unspecified; F01.50 Vascular dementia, unspecified severity, without behavioral disturbance, psychotic disturbance, mood disturbance, and anxiety; F41.9 Anxiety disorder, unspecified; Z93.1 Gastrostomy status; Z79.4 Long term (current) use of insulin
CPT/HCPCS: 36415; 36430; 70450; 71045; 74018; 80048; 80053; 80202; 82270; 82607; 82728; 82746; 82962; 83036; 83540; 83690; 83735; 84100; 84443; 85025; 85045; 85610; 85730; 86850; 86900; 86901; 86920; 87040; 87070; 87081; 87086; 87102; 87340; 88305; 88312; 90935; 92526; 92610; 93005; 93931; 93971; 94640; 96374; A4310; C9113; J0360; J0690; J1100; J1644; J1815; J2060; J2185; J2270; J2274; J2405; J2543; J2765; J3010; J3370; J7030; J7042; J7050; P9016; P9047; Q4081

== ENCOUNTER 2019-01-26 12:52 | Inpatient (IN) | payer MEDICARE, OTHER ==
[~2019-01-26] VITALS: Ht 152.4 cm; Wt 45.0 kg
[~2019-01-26 12:52] MED LIST changes: -CALC1TAB93 GTB; -CHOL400T8 GTB; -CLON1PAT2 TD; +FER325 PO; -FERR220S13 GTB; +HYDR-3671 PO; -INSU100I27 SQ; +LANS30CA PO; -PANT40TA3 GTB; +SENN-120 PO; +SEVE0.8P PO; -SEVE800T7 GTB; +VALP250S2 PO
--- NOTE | 2019-01-26 17:13 | ERD ---
ER Documentation Chief Complaint Chief Complaint left leg/thigh pain. xray report shows fx HPI 83-year-old female was referred to the emergency department from her care facility for evaluation of a left leg fracture. Patient is nonverbal and provides no significant insight. There is no significant further history available from the transfer paperwork. ROS All systems reviewed and are negative except as per history of present illness. Medications Home Meds Reported Medications Sennosides* (Senna Lax*) 8.6 Mg Tablet, 1 TAB PO BID, TAB 11/16/18 Sevelamer Carbonate* (Renvela*) 0.8 Gm Powd.pack, 0.8 GM PO WITH MEALS, PACKET 11/16/18 Lansoprazole* (Lansoprazole*) 30 Mg Capsule.dr, 30 MG PO QAM, CAP 11/16/18 Hydralazine Hcl* (Hydralazine Hcl*) 25 Mg Tab, 25 MG PO Q8, #90 TAB 11/16/18 Ferrous Sulfate* (Ferrous Sulfate*) 325 Mg Tabec, 325 MG PO BID for anemia, TAB 11/16/18 Valproate Sodium (Valproic Acid) 250 Mg/5 Ml Solution, 250 MG PO Q8, ML 11/16/18 Insulin Aspart* (Novolog Insulin Pen*) 100 Unit/Ml Soln, 0 SC .SLIDING SCALE AC, EA IF BS 160-200=2 UNITS,201-250=4 UNITS,251-300=8 UNITS,301-350=12 UNITS;351-400=16 UNITS THEN CALL MD. 10/16/18 Ondansetron Hcl* (Zofran*) 4 Mg Tab, 4 MG GTB Q4H PRN for NAUSEA AND OR VOMITING, TAB 10/16/18 Linagliptin (TRADJENTA) 5 Mg Tablet, 5 MG GTB DAILY, TAB 10/16/18 Quetiapine Fumarate* (Seroquel*) 25 Mg Tablet, 25 MG GTB BID, #60 TAB 10/16/18 [Nephro-Roque] No Conflict Check, 0.8 MG GTB DAILY 10/16/18 Polyethylene Glycol* (Miralax*) 17 Gm Powd.pack, 17 GM GTB Q24H, #30 PACKET 10/16/18 Metoprolol Tartrate* (Lopressor*) 50 Mg Tab, 50 MG GTB DAILY, #60 TAB Q MON,WED,FRI,SUN,HOLD FOR SBP<110 OR RI<60 10/16/18 Metoprolol Tartrate* (Lopressor*) 50 Mg Tab, 50 MG GTB BID, #60 TAB QTUE,ANDREW,SAT,HOLD FOR SBP<110 OR RI<60 10/16/18 Linaclotide (LINZESS) 145 Mcg Capsule, 145 MCG GTB DAILY, #30 CAP 10/16/18 Ipratropium-Albuterol (Ipratropium-Albuterol) 0.5-3 Mg/3 Ml Ampul.neb, 3 ML INHALATION Q6, #30 VIAL FOR 14 DAYS,STOP DATE 10/17/18 10/16/18 Hydralazine Hcl* (Hydralazine Hcl*) 25 Mg Tab, 25 MG GTB DAILY, #60 TAB Q TUE,ANDREW,SAT,HOLD IF SBP<110 OR RI<60 10/16/18 Folic Acid* (Folic Acid*) 1 Mg Tablet, 1 MG GTB DAILY, TAB 10/16/18 Docusate Sodium* (Colace*) 100 Mg Capsule, 100 MG GTB DAILY, #30 CAP 10/16/18 Lorazepam* (Lorazepam*) 1 Mg Tablet, 1 MG GTB HS PRN for ANXIETY, #30 TAB Q TUE,ANDREW,SAT 10/16/18 Amlodipine Besylate* (Norvasc*) 5 Mg Tablet, 5 MG GTB BID, TAB TAKE Q TUE,ANDREW,SAT FOR HTN, HOLD FOR SBP<110 OR RI<60 10/16/18 Acetaminophen* (Acetaminophen*) 650 Mg Tablet, 650 MG GTB Q6H PRN for PAIN LEVEL 1-10/10, #30 TAB 10/16/18 Allergies Allergies: Coded Allergies: No Known Allergy (Unverified , 10/16/18) PMhx/Soc History of Surgery: Yes (C SECTION,GT TUBE PLACEMENT, LEFT LEG OPEN REDUCTION) Anesthesia Reaction: No Hx 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 Disorder: Yes (DEMENTIA) Hx Respiratory Disorders: Yes (COPD) Hx Cardiac Disorders: Yes (HF, HTN) Hx Psychiatric Problems: Yes (AGITATION ,CONFUSED) Hx Miscellaneous Medical Probl: Yes (DM ) Hx Alcohol Use: No Hx Substance Use: No Hx Tobacco Use: No Smoking Status: Never smoker Physical Exam Vitals Vital Signs Date Temp Pulse Resp B/P (MAP) Pulse Ox O2 O2 Flow FiO2 Time Delivery Rate 01/26/19 81 18 142/59 100 Room Air 16:20 (86) 01/26/19 98.8 81 18 145/65 98 13:08 (91) Physical Exam General: Frail, bed bound, ill appearing HEENT: Mucous membranes dry, sclera nonicteric Neck: No JVD. Cardiovascular: Regular rate and rhythm, no murmurs rubs or gallops. Lungs: Transmission of upper airway sounds. Abdomen: Soft with G-tube appreciated. Nontender to palpation. Bowel sounds noted. : Diaper in place and incontinent. Extremities: Atrophic. Flexion contractures noted. She has tenderness to the left leg. The other 3 extremities appear to be atraumatic Neurologic: Baseline organic brain syndrome noted. Gag reflex week. Motor strength diminished in all 4 extremities but otherwise nonfocal. Skin: Skin breakdown noted per nursing note. Result Diagram: 01/26/19 1435 01/26/19 1435 Results 24 hrs Laboratory Tests Test 01/26/19 14:35 White Blood Count 8.5 10^3/ul Red Blood Count 3.28 10^6/ul Hemoglobin 8.7 g/dl Hematocrit 26.9 % Mean Corpuscular Volume 82.0 fl Mean Corpuscular Hemoglobin 26.5 pg Mean Corpuscular Hemoglobin Concent 32.3 g/dl Red Cell Distribution Width 17.1 % Platelet Count 277 10^3/UL Mean Platelet Volume 10.5 fl Immature Granulocytes % 1.900 % Neutrophils % 75.5 % Lymphocytes % 9.3 % Monocytes % 9.8 % Eosinophils % 3.4 % Basophils % 0.1 % Nucleated Red Blood Cells % 0.4 /100WBC Immature Granulocytes # 0.160 10^3/ul Neutrophils # 6.4 10^3/ul Lymphocytes # 0.8 10^3/ul Monocytes # 0.8 10^3/ul Eosinophils # 0.3 10^3/ul Basophils # 0.0 10^3/ul Nucleated Red Blood Cells # 0.0 10^3/ul Sodium Level 128 mmol/L Potassium Level 4.2 mmol/L Chloride Level 92 mmol/L Carbon Dioxide Level 24 mmol/L Anion Gap 12 Blood Urea Nitrogen 61 mg/dl Creatinine 2.17 mg/dl Est Glomerular Filtrat Rate mL/min mL/min Glucose Level 114 mg/dl Calcium Level 8.2 mg/dl Total Bilirubin 0.4 mg/dl Direct Bilirubin 0.00 mg/dl Indirect Bilirubin 0.4 mg/dl Aspartate Amino Transf (AST/SGOT) 16 IU/L Alanine Aminotransferase (ALT/SGPT) 17 IU/L Alkaline Phosphatase 75 IU/L Total Protein 5.8 g/dl Albumin 2.9 g/dl Globulin 2.90 g/dl Albumin/Globulin Ratio 1.00 Procedures/MDM Patient was taken to a room, seen and evaluated. Comfort measures were initiated. Diagnostic tests were ordered and reviewed. 3 LEAD RHYTHM STRIP: Normal sinus rhythm without ectopy RADIOLOGY: Reviewed with the radiologist CONSULTATION: Dr. Perez was notified for admission REEVALUATION: Patient remained stable in the emergency department and based on conversations with Dr. Perez, arrangements were made for admission MEDICAL DECISION MAKIN-year-old female presents the emergency department with a left leg fracture which is presumed to be acute. The history is unknown as to the mechanism of injury, which is somewhat concerning. Patient is at baseline bedbound with flexion contractures which would make this likely nonoperative. Patient will be admitted to the hospital for orthopedic consultation, comfort measures and further evaluation by Dr. Perez. Departure Diagnosis: Primary Impression: Leg fracture Condition: ANTOINETTE Arrington Jan 26, 2019 17:13
[2019-01-26] MEDS ORDERED: ACETAMINOPHEN 325 MG TAB GTB PRN (17:30)
[2019-01-26] MEDS ORDERED: ACETAMINOPHEN 325 MG TAB PO PRN (17:30)
[2019-01-26] MEDS ORDERED: morphine 2 MG INJ IV PRN (17:30)
[2019-01-26] MEDS ORDERED: INSULIN ASPART [NOVOLOG] 3 ML PEN SC SCH (17:30)
[2019-01-26] MEDS ORDERED: NACL 0.9% 3 ML SYG IV SCH (17:30)
[2019-01-26] MEDS ORDERED: DOCUSATE SODIUM 100 MG CAP PO PRN (17:30)
[2019-01-26] MEDS ORDERED: HYDROCODONE/APAP (5/325) TAB PO PRN (17:30)
[2019-01-26] MEDS ORDERED: MAGNESIUM HYDROXIDE 30ML CUP PO PRN (17:30)
[2019-01-26] MEDS ORDERED: LORAZEPAM 1 MG TAB GTB PRN (17:30)
[2019-01-26] MEDS ORDERED: ONDANSETRON 4 MG INJ IV PRN (17:30)
[2019-01-26] MEDS ORDERED: ACET-141 GTB ×2 (18:32)
[2019-01-26] MEDS ORDERED: ACET325T45 GTB (18:32)
[2019-01-26] MEDS ORDERED: ATOR40TA68 GTB (18:37)
[2019-01-26] MEDS ORDERED: PANT40TA4 GTB (18:45)
[2019-01-26] MEDS ORDERED: NEPHRO-VITE GTB (18:46)
[2019-01-26] MEDS ORDERED: ASPI-903 GTB (18:47)
[2019-01-26] MEDS ORDERED: IPRA3AMP29 INHALATION (18:49)
[2019-01-26] MEDS ORDERED: METO-407 GTB (18:50)
[2019-01-26] MEDS ORDERED: SEVE800T7 GTB (18:51)
[2019-01-26] MEDS ORDERED: CRAN425C6 GTB (18:54)
[2019-01-26] MEDS ORDERED: CRAN3875 GTB (18:55)
[2019-01-26] MEDS ORDERED: FERR220S13 GTB (18:58)
[2019-01-26] MEDS ORDERED: ASC500 GTB (18:59)
[2019-01-26] MEDS ORDERED: MULT9LIQ4 GTB (19:00)
[2019-01-26] MEDS ORDERED: AMIN30LI GTB (19:01)
[2019-01-26] MEDS ORDERED: LORA0.5T GTB (19:03)
[2019-01-26] MEDS ORDERED: OLAN5TAB5 GTB (19:03)
[2019-01-26] MEDS ORDERED: NOVO3I SC (19:11)
[2019-01-26] MEDS ORDERED: LANT3I SC (19:12)
[2019-01-26] MEDS ORDERED: MAGN400O19 GTB (19:15)
[2019-01-26] MEDS ORDERED: BISA10SU75 PR (19:16)
[2019-01-26] MEDS ORDERED: NA P230E RC (19:17)
[2019-01-26] MEDS ORDERED: METO5TAB58 GTB (19:18)
[2019-01-26] MEDS ORDERED: GUAI5SYR2 GTB (19:19)
--- NOTE | 2019-01-26 19:58 | QN ---
Documentation Comment [id number] Robles MD Jan 26, 2019 19:58
[2019-01-26 21:00] VITALS: BP 128/61; PULSE 56; RESP 18
--- NOTE | 2019-01-26 21:08 | HP ---
DATE OF ADMISSION: 01/26/2019 REASON FOR ADMISSION: Left distal femur fracture. HISTORY OF PRESENT ILLNESS: The patient is an unfortunate 83-year-old [place] female, very well kno wn to me, unfortunately very sick with recurrent hospitalization. She has been hospitalized in the ast 3 months, almost continuously on various different hospitals. She is very ill. She has a histor y of end-stage renal disease on dialysis 3 times a week, history of diastolic dysfunction heart failu re, diabetes mellitus type 2 overall controlled, hypertension, vascular dementia, anxiety disorder, a rrhythmias, COPD, dysphagia, G-tube feeding and moderate to severe caloric-protein malnutrition, rece ntly admitted to [facility] for severe anemia where she was transfused PRBCs and with good results. Also, she was found to have elevated troponin suggestive of non-ST elevation MO. The teo ent was treated conservatively. The patient currently resides at [facility]. Apparently, she may have fallen. Exact mechanism of injury is unclear. X-rays were done at outside facility which suggests left distal femur fracture. We decided to send the patient to the [facility] for evaluation. In the ER, the patient underwent lab workup. CBC overall is stable with hemo globin of 8.7, which is her baseline. BUN and creatinine of 61/2.17. X-rays of the knee was perform ed and shows acute oblique moderately displaced distal femur fracture. Consider CT for more complete evaluation to better assess for intra-articular extension, large knee joint effusion osteopeni a. The patient is somewhat contracted especially at the knee. Upon evaluation, the patient is respo nding at baseline. She is able to speak a few words in Tagalog. She recognizes me and upon movement of the left leg, there is apparent pain. There is swelling of the left knee as well. We decided to admit the patient for further care and orthopedic evaluation. I already consulted Dr. Cesario faustin this and x-rays were reviewed together. The patient is to be admitted to medical/surgical rukhsana or. The patient's daughter was informed of the above and currently, she is visiting the patient. Th e patient is admitted for further care. 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 PAST SURGICAL HISTORY: Hip replacement surgery due to hip fracture, , G-tube placement. ALLERGIES: NO KNOWN ALLERGIES. FAMILY HISTORY: Noncontributory. SOCIAL HISTORY: The patient's daughter is Alejandro which helps with her care. The patient resides at [facility]. The patient's daughter's phone number is as follows [phone]. HOME MEDICATIONS: Reviewed. They include the followin. Ferrous sulfate 300 b.i.d. 2. Amlodipine 5 mg b.i.d. 3. Hydralazine 25 p.r.n. 4. Hydralazine 25 q.8 hours. 5. Lopressor 50 b.i.d. 6. Tylenol p.r.n. 7. Lorazepam 1 mg at bedtime p.r.n. 8. Seroquel 25 b.i.d. 9. Valproic acid 250 q.8. 10. Renvela 0.8 with meals. 11. Colace 100 daily. 12. Lansoprazole 30 mg daily. 13. Linzess 145 mg daily. 14. Zofran p.r.n. 15. MiraLax daily. 16. Senna b.i.d. 17. Insulin aspart per sliding scale. 18. Tradjenta 5 mg daily. 19. Folic acid 1 mg daily. 20. Nephro-Roque 1 tab daily. PHYSICAL EXAMINATION: VITAL SIGNS: Temperature 98.8, pulse 81, respirations 18, blood pressure 142/59, saturation 100%. GENERAL: The patient is in no acute distress. HEENT: Pale, temporal wasting. CARDIOVASCULAR: S1, S2, regular rate. The patient has a left upper chest PermCath. ABDOMEN: Soft. Binder and G-tube is in place. EXTREMITIES: There is no clubbing condition or cyanosis. There is left knee swelling and is flexed. Apparent swelling is definitely noted. This patient has pain in that area upon slight moving the l eft lower extremity. LABORATORY DATA: White count 8.5, hemoglobin 8.7, hematocrit 27, platelets count 277, neutrophils 76 %, lymphs 9%. Chemistry: Sodium 128, potassium 4.2, chloride 92, bicarbonate 24, BUN is 61, creatin ine 2.17, glucose 114. Total protein 5.8, albumin 2.9. IMAGING: Chest x-ray done as well which shows the following: Cardiomegaly with mild hilar vascular congestion, chronic senescent changes of the chest, left-sided tunneled dialysis catheter is in place . ASSESSMENT AND PLAN: This is a very unfortunate 83-year-old [place] female overall very ill, multip le medical issues including diabetes mellitus, end-stage renal disease, dementia, atherosclerotic car diovascular disease, malnutrition, dysphagia, G-tube feeding, recent hospitalization for anemia, aspi ration pneumonia, bacteremia, fungemia with poor quality of life. 1. Respiratory: Chest x-ray overall is stable. O2 support as needed. 2. Cardiovascular: The patient will be placed on heparin for deep venous thrombosis prophylaxis and continue patient's blood pressure medications. 3. Left distal femur fracture. Consulted Dr. Miranda to see if the patient is a candidate for surgery o r brace or just conservative management. Pain control will be provided. 4. Anemia. The patient was placed on Epogen. Nephrology will be consulted. The patient was placed on Protonix for GI prophylaxis. 5. End-stage renal disease. Dialysis will be consulted with Dr. Juliocesar Stringer. I believe her dialys is days are every Thursday, Thursday and Thursday. 6. Diabetes mellitus. Glucose level is to be monitored. Continue Tradjenta and Accu-Cheks. 7. Pain control will be provided. Monitor closely. 8. 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 Continue patient's psy chiatric meds. Avoid over sedation. 9. Fall precaution will be provided. 10. Air mattress bed will be provided for maximum safety. 11. Dysphagia. Continue G-tube feeding with Nepro at 30 mL an hour with aspiration precautions. We will follow the patient closely. Dictated By: DYLON HULL/MADAN Conf#: [id number] DID#: [id number] CC: CESARIO MIRANDA MD;*EndCC*
[2019-01-26] MEDS: POLYETHYLENE GLYCOL 17 GM PACKET GTB SCH (21:50)
[2019-01-26] MEDS: VALPROIC ACID (50 MG/ML PO SYG) PO SCH (21:50)
[2019-01-26] MEDS: AMLODIPINE 5 MG TAB GTB SCH (21:51)
[2019-01-26] MEDS: QUETIAPINE 25 MG TAB GTB SCH (21:51)
[2019-01-26] MEDS: SEVELAMER CARBONATE 0.8 GM PKT PO SCH (21:51)
[2019-01-26] MEDS: SENNA TAB PO SCH (21:51)
[2019-01-26] MEDS: FERROUS SULFATE (EC) 325 MG TAB PO SCH (21:51)
[2019-01-26] MEDS: METOPROLOL 50 MG TAB GTB SCH (21:52)
[2019-01-26] MEDS: HEPARIN 5,000 UNIT/1 ML VIAL SC SCH (21:57)
--- NOTE | 2019-01-26 22:11 | CONS ---
DATE OF ADMISSION: 01/26/2019 DATE OF CONSULTATION: Thank you, Dr. Perez, for kindly asking me to see this patient in nephrology consultation. HISTORY OF PRESENT ILLNESS: The patient is an 83-year-old female with history of ESRD, hypertension, diabetes mellitus. The patient also has a history of atrial fibrillation, history of anemia, history of blood transfusion. At [facility], the patient presented with left knee pain and noted to have a fracture of the left knee. The patient's family is at the bedside who provided the history. As per family, we are not sure what happened. The patient had a fall. At this point, patient herself is unable to give any detailed history. The patient previously was discharged from this hospital with multiple medical problems including fungemia, fungal urinary tract infection, status post right hand hematoma status post I and D, hypertension, dementia, anemia. The patient also has a history of pneumonia. ALLERGIES: NEGATIVE. FAMILY HISTORY: Negative. SOCIAL HISTORY: Negative. PAST MEDICAL HISTORY: Includes a history of GI bleed, hypertension, diabetes mellitus, history of fall, history of dementia, history of lower extremity fracture and repair, history of dysphagia, status post G-tube placement, history of hip fracture, history of atherosclerotic heart disease. History of use bacteremia, history of paroxysmal atrial fibrillation, history of anxiety, history of psychosis. REVIEW OF SYSTEMS: Cannot be obtained. PHYSICAL EXAMINATION: GENERAL: The patient is awake, not in any acute respiratory distress. VITAL SIGNS: Pulse 90, blood pressure 100/62. HEENT: Head is atraumatic, normocephalic. Pupils _reactive neg. Conjunctivae icterus. NECK: Supple. LUNGS: Clear. CARDIOVASCULAR: S1, S2 is normal. Systolic murmur noted. ABDOMEN: Soft, nontender. Bowel sounds positive. G-tube in place. EXTREMITIES: No cyanosis, clubbing. The patient has edema. The patient's left knee is swollen and has effusion. Range of motion is restricted because of the pain. CENTRAL NERVOUS SYSTEM: The patient is awake, alert, moving both upper and lower extremity. LABORATORY DATA: Hematocrit 26.9, sodium 120, potassium 4.2. IMAGING STUDIES: The patient had x-ray of the knee done shows acute oblique moderately displaced distal femur fracture, large knee joint effusion, and background osteopenia. IMPRESSION: 1. The patient has incomplete database. 2. Left knee effusion, rule out fracture. 3. End-stage renal disease. 4. Hypertension. 5. Diabetes mellitus. 6. G-tube placement. 7. Atrial fibrillation. 8. History of JUMP[employer]ING [employer] bleed in the past. 9. History of multiple sepsis including pneumonia and fungal sepsis. 10. Anemia. 11. Blood transfusion. 12. Hyponatremia. 13. Malnutrition. 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 15. Hypoalbuminemia. PLAN: To continue diabetic renal diet. Pain medication per Dr. Perez. Orthopedic consultation per primary care team. Hemodialysis will be ordered. Thank you, Dr. Perez, for kindly asking me to see this patient in nephrology consultation. Discussed with the patient's daughter at bedside. Dictated By: GEOFF KATHLEEN MD BS/NTS Conf#: [id number] DID#: [id number] CC: DYLON PEREZ MD;*EndCC* MTDD
[2019-01-27] VITALS (24 sets, daily range): BP systolic 107–158; BP diastolic 51–97; PULSE 9–98; RESP 16–20; Ht 152.4 cm; Wt 45.0 kg
[2019-01-27] MEDS ORDERED: HEPARIN 1000 UNITS/ML 10 ML INJ CATHETER ONE (00:30)
[2019-01-27] MEDS ORDERED: PENDING SANTYL ORDER FOR WOUND CARE XX PRN (04:30)
[2019-01-27] MEDS ORDERED: PANTOPRAZOLE (EC) 40 MG TAB PO SCH (06:00)
[2019-01-27] MEDS: HEPARIN 1000 UNITS/ML 10 ML INJ CATHETER SCH (08:30)
[2019-01-27] MEDS: DOCUSATE SODIUM 100 MG CAP PO SCH (09:00)
[2019-01-27] MEDS: FERROUS SULFATE (EC) 325 MG TAB PO SCH ×2 (09:00→21:00)
[2019-01-27] MEDS ORDERED: LANSOPRAZOLE 30 MG CAP PO SCH (09:00)
--- NOTE | 2019-01-27 09:24 | CONS ---
Assessment/Plan Assessment/Plan Assessment/Plan (Daily) 1 Left knee effusion,acuute oblique moderately displaced distal femur fracture 3. End-stage renal disease. 4. Hypertension. 5. Diabetes mellitus. 6. G-tube placement. 7. Atrial fibrillation. 8. 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 9. History of multiple sepsis including pneumonia and fungal sepsis. 10. Anemia. 11. Blood transfusion. 12. Hyponatremia. 13. Malnutrition. 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 15. Hypoalbuminemia. Plan - hd yesterday - cw HD MWF - ortho to see and per plan - Avoid nephrotoxins - Renally dose all meds Consultation Date/Type/Reason Admit Date/Time Jan 26, 2019 at 17:14 Initial Consult Date Date/Time of Note DATE: 01/27/19 TIME: 09:23 24 HR Interval Summary Free Text/Dictation s/p HD yesterday Exam/Review of Systems Exam Vitals Vital Signs Date Temp Pulse Resp B/P (MAP) Pulse Ox O2 O2 Flow FiO2 Time Delivery Rate 01/27/19 97 19 155/66 08:33 (95) 01/27/19 99.2 95 Room Air 08:00 Intake and Output 01/26/19 01/26/19 01/27/19 1515:00 23:00 07:00 IntakeIntake Total 300 ml BalanceBalance 300 ml Exam GENERAL: The patient is in no acute distress. HEENT: Pale, temporal wasting. CARDIOVASCULAR: S1, S2, regular rate. The patient has a left upper chest PermCath. ABDOMEN: Soft. Binder and G-tube is in place. EXTREMITIES: There is no clubbing condition or cyanosis. There is left knee swelling and is flexed. Apparent swelling is definitely noted. This patient has pain in that area upon slight moving the left lower extremity. Results Result Diagram: 01/26/19 1435 01/26/19 1435 Results 24hrs Laboratory Tests Test 01/26/19 14:35 01/27/19 05:13 White Blood Count 8.5 Red Blood Count 3.28 L Hemoglobin 8.7 L Hematocrit 26.9 L Mean Corpuscular Volume 82.0 Mean Corpuscular Hemoglobin 26.5 L Mean Corpuscular Hemoglobin Concent 32.3 Red Cell Distribution Width 17.1 H Platelet Count 277 Mean Platelet Volume 10.5 H Immature Granulocytes % 1.900 H Neutrophils % 75.5 Lymphocytes % 9.3 L Monocytes % 9.8 Eosinophils % 3.4 Basophils % 0.1 Nucleated Red Blood Cells % 0.4 H Immature Granulocytes # 0.160 H Neutrophils # 6.4 Lymphocytes # 0.8 Monocytes # 0.8 Eosinophils # 0.3 Basophils # 0.0 Nucleated Red Blood Cells # 0.0 Sodium Level 128 L Potassium Level 4.2 Chloride Level 92 L Carbon Dioxide Level 24 Anion Gap 12 Blood Urea Nitrogen 61 H Creatinine 2.17 H Est Glomerular Filtrat Rate mL/min Glucose Level 114 Calcium Level 8.2 L Total Bilirubin 0.4 Direct Bilirubin 0.00 Indirect Bilirubin 0.4 Aspartate Amino Transf (AST/SGOT) 16 Alanine Aminotransferase (ALT/SGPT) 17 Alkaline Phosphatase 75 Total Protein 5.8 L Albumin 2.9 L Globulin 2.90 Albumin/Globulin Ratio 1.00 Hepatitis B Surface Antigen NEGATIVE Medications Medication Current Medications IV Flush (NS 3 ml) 3 ml PER PROTOCOL IV ; Start 01/26/19 at 17:30 Ondansetron HCl (Zofran Inj) 4 mg Q6H PRN IV NAUSEA/VOMITING; Start 01/26/19 at 17:30 Acetaminophen (Tylenol Tab) 650 mg Q6H PRN PO .PAIN 1-3 OR TEMP; Start 01/26/19 at 17:30 Acetaminophen/ Hydrocodone Bitart (Edison (5/325)) 1 tab Q6H PRN PO .MOD PAIN 4- 6; Start 01/26/19 at 17:30 Morphine Sulfate (morphine) 2 mg Q4H PRN IV .SEVERE PAIN 7-10; Start 01/26/19 at 17:30 Docusate Sodium (Colace) 100 mg Q12H PRN PO .CONSTIPATION; Start 01/26/19 at 17:30 Magnesium Hydroxide (Milk Of Mag) 30 ml DAILY PRN PO .CONSTIPATION; Start 01/26/19 at 17:30 Heparin Sodium (Porcine) (Heparin (5000 Units/1ml)) 5,000 unit Q12 SC Last administered on 01/26/19at 21:57; Admin Dose 5,000 UNIT; Start 01/26/19 at 21:00 Acetaminophen (Tylenol Tab) 650 mg Q6H PRN GTB PAIN LEVEL 1-10/10; Start 01/26/19 at 17:30 Amlodipine Besylate (Norvasc) 5 mg BID GTB Last administered on 01/26/19 21:51; Admin Dose 5 MG; Start 01/26/19 at 21:00 Docusate Sodium (Colace) 100 mg DAILY PO ; Start 01/27/19 at 09:00 Ferrous Sulfate (Ferrous Sulfate (Ec)) 325 mg BID PO Last administered on 01/08 21:51; Admin Dose 325 MG; Start 01/26/19 at 21:00 Folic Acid (Folic Acid) 1 mg DAILY GTB ; Start 01/27/19 at 09:00 Hydralazine HCl (Apresoline) 25 mg Q8 PO Last administered on 01/26/19 21:51; Admin Dose 25 MG; Start 01/26/19 at 22:00 Insulin Aspart (Novolog Insulin Pen) 1 unit SLIDING SCALE AC SC ; Start 01/26/19 at 17:30 Linagliptin (Tradjenta) 5 mg DAILY GTB ; Start 01/27/19 at 09:00 Lorazepam (Ativan) 1 mg HS PRN GTB ANXIETY; Start 01/26/19 at 17:30 Metoprolol Tartrate (Lopressor) 50 mg BID GTB Last administered on 01/26/19at 21:52; Admin Dose 50 MG; Start 01/26/19 at 21:00 Polyethylene Glycol (Miralax) 17 gm Q24H GTB Last administered on 01/26/19 21:50; Admin Dose 17 GM; Start 01/26/19 at 17:30 Quetiapine Fumarate (Seroquel) 25 mg BID GTB Last administered on 01/26/19 21 :51; Admin Dose 25 MG; Start 01/26/19 at 21:00 Senna (Senokot) 1 tab BID PO Last administered on 01/26/19 21:51; Admin Dose 1 TAB; Start 01/26/19 at 21:00 Sevelamer Carbonate (Renvela) 0.8 gm WITH MEALS PO Last administered on 01/26/19 21:51; Admin Dose 0.8 GM; Start 01/26/19 at 18:00 Valproic Acid (Depakene Liquid (Ped)) 250 mg Q8 PO Last administered on 01/26/19 21:50; Admin Dose 250 MG; Start 01/26/19 at 22:00 Lansoprazole (Prevacid) 30 mg DAILY@06 GTB ; Start 01/27/19 at 06:00 Heparin Sodium (Porcine) (Heparin (1000 Units/ml)) 4,000 unit AFTER DIALYSIS CATHETER Last administered on 01/27/19at 08:30; Admin Dose 3,200 UNIT; Start 01/27/19 at 00:30 Miscellaneous Information (Pending Santyl Order For Wound Care) This patient lane... PRN PRN XX WOUND CARE; Start 01/27/19 at 04:30 JOSE RAUL ANDREWS MD Jan 27, 2019 09:24
[2019-01-27] MEDS ORDERED: DOCUSATE SODIUM 10 MG/ML (10ML CUP) ONE (10:27)
[2019-01-27] MEDS ORDERED: FERROUS SULFATE 60 MG/ML 5ML CUP ONE (10:28)
[2019-01-27] MEDS: LANSOPRAZOLE 30 MG CAP GTB SCH (10:31)
[2019-01-27] MEDS: SENNA TAB PO SCH ×2 (10:31→22:37)
[2019-01-27] MEDS: AMLODIPINE 5 MG TAB GTB SCH ×2 (10:32→22:34)
[2019-01-27] MEDS: LINAGLIPTIN 5 MG TABLET GTB SCH (10:32)
[2019-01-27] MEDS: METOPROLOL 50 MG TAB GTB SCH ×2 (10:33→22:35)
[2019-01-27] MEDS: FOLIC ACID 1 MG TAB GTB SCH (10:33)
[2019-01-27] MEDS: SEVELAMER CARBONATE 0.8 GM PKT PO SCH ×4 (10:34→17:35)
[2019-01-27] MEDS: QUETIAPINE 25 MG TAB GTB SCH ×2 (10:36→22:36)
[2019-01-27] MEDS: HEPARIN 5,000 UNIT/1 ML VIAL SC SCH ×2 (10:37→22:38)
[2019-01-27] MEDS: DOCUSATE SODIUM 10 MG/ML (10ML CUP) GTB SCH ×2 (10:57→22:32)
[2019-01-27] MEDS: FERROUS SULFATE 60 MG/ML 5ML CUP NGT SCH ×2 (10:57→22:33)
[2019-01-27] MEDS: BALSAM PERU/CASTOR OIL 60 GM TUBE TOP SCH ×2 (13:37→22:37)
[2019-01-27] MEDS: VALPROIC ACID (50 MG/ML PO SYG) PO SCH ×2 (14:00→15:36)
--- NOTE | 2019-01-27 16:53 | PN ---
DATE: 01/27/2019 SUBJECTIVE: The patient was seen, resting in bed comfortably. I appreciate Dr. Stringer, nephrology co nsultation. The patient was dialyzed yesterday. The patient is awaiting orthopedic consultation wit angela Rivera. I called his office just now and I spoke with Dr. Rivera and we reviewed the patient's x-ray yesterday evening. PHYSICAL EXAMINATION: VITAL SIGNS: Temperature 98.8, pulse 79, respirations 18, blood pressure 135/62, saturation 100%. GENERAL: In no acute distress. HEENT: Normocephalic, atraumatic, pale. CARDIOVASCULAR: S1, S2, regular rate. LUNGS: Clear. ABDOMEN: Soft. G-tube in place. EXTREMITIES: No clubbing, cyanosis or edema. The patient is not as much flexing the left knee. Ove rall, appears to be comfortable. LABORATORY DATA: White count 7.7, hemoglobin 9.2, hematocrit 28, platelet count 312, neutrophils 84% , lymphs 4%. Chemistry: Sodium 138, potassium 3.6, chloride 101, bicarbonate 30, BUN is 20, creatin ine of 1.02, glucose 157. MEDICATIONS: Include: 1. Colace 100 b.i.d. 2. Ferrous sulfate 325 b.i.d. 3. Folic acid 1 mg daily. 4. Tradjenta 5 mg daily. 5. Prevacid 30 mg daily. 6. Heparin as directed. 7. Hydralazine 25 q.8. 8. Valproic acid 250 q.8. 9. Heparin 5000 q.12. 10. Norvasc 5 mg b.i.d. 11. Metoprolol tartrate 50 b.i.d. 12. Seroquel 25 b.i.d. 13. Senna 1 tab b.i.d. 14. Renvela with meals. 15. Zofran p.r.n. 16. Tylenol p.r.n. 17. [place] p.r.n. 18. Morphine p.r.n. 19. Tylenol p.r.n. 20. p.r.n. 21. Ativan. 22. MiraLax p.r.n. ASSESSMENT AND PLAN: This is an 83-year-old Martiniquais female overall very ill with multiple medical i ssues including diabetes mellitus, end-stage renal disease, dementia, atherosclerotic cardiovascular disease, malnutrition, dysphagia, G-tube feeding, recent hospitalization, anemia, aspiration pneumoni a, bacteremia, fungemia, overall with poor quality of life. 1. Respiratory: Chest x-ray is stable. O2 support as needed. 2. Cardiovascular: Continue heparin for deep venous thrombosis prophylaxis. Vitals are stable. 3. Left distal femur fracture. Likely conservative treatment. If surgery is an option and high con sideration, we will obtain cardiology for cardiac clearance. May benefit just from a brace, pain con trol and close monitoring. 4. Anemia. Continue Epogen and Protonix. Continue gastrointestinal prophylaxis. 5. End-stage renal disease. Dialysis every Thursday, Thursday and Thursday. Last dialysis was yesterd ay. 6. Diabetes mellitus. Glucose levels are controlled. Continue Tradjenta. 7. Dysphagia. Continue G-tube feeding at 30 mL an hour. 8. 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 Continue above psych meds. 9. Continue fall precautions. Restraints as needed. 10. Air mattress bed for maximum safety. Clinically, appears stable. DISPOSITION: After seen by surgical team with Dr. Cesario Rivera, the labor specialist. Dictated By: DYLON HULL/NTS Conf#: [id number] DID#: [id number] CC: CESARIO RIVERA MD;*EndCC*
[2019-01-27] MEDS: POLYETHYLENE GLYCOL 17 GM PACKET GTB SCH ×2 (17:00→17:30)
--- NOTE | 2019-01-27 18:46 | CONS ---
DATE OF ADMISSION: 01/26/2019 DATE OF CONSULTATION: 01/26/2019 TYPE OF CONSULTATION: Orthopedic surgical. HISTORY OF PRESENT ILLNESS: The patient is an 83-year-old female with the multiple comorbidities who was admitted on 01/26/2019 when she was brought into the emergency room. She obviously had a mechan ical fall at residential facility she was in, developing painful swelling around the left knee. Initial evaluation in the emergency room revealed an obvious presence of supracondylar fracture invol ving the left knee and she was admitted. PAST HISTORY: She is known to have multiple medical problems including end-stage renal disease on di alysis, diastolic dysfunction heart failure, diabetes mellitus, hypertension, vascular dementia, anxi ety disorder, COPD, dysphagia in G-tube feeding. She obviously had a left hip fracture in 2017 and was treated with the [employer] intramedullary hip fi xation system for the left hip. PHYSICAL EXAMINATION: GENERAL: My examination revealed an 83-year-old female who cannot participate in the history taking or physical examination because of her mental status. EXTREMITIES: There was tenderness and swelling and abnormal motion over the distal portion around th e left knee. NEUROLOGIC: Could not be carried out properly because of less than ideal cooperation. DIAGNOSTIC DATA: X-rays of the left knee and left femur revealed spiral fracture involving the supra condylar area of the left femur. The intramedullary inocencia from previous hip surgery was visible. DIAGNOSTIC IMPRESSION: 1. Supracondylar fracture of the left femur. 2. Presence of intramedullary nail in the left tibia from previous hip surgery. RECOMMENDATIONS FOR MANAGEMENT: 1. Temporary immobilization in a long leg brace with a dial lock at the knee joint. 2. Open reduction and internal fixation, probably utilizing cerclage cable along with the possible i nsertion of the locking screw. Dictated By: CESARIO RIVERA MD IK/NTS Conf#: [id number] DID#: [id number] CC: DYLON WALLS MD;*EndCC*
[2019-01-27] MEDS: VALPROIC ACID LIQUID CUP 250 MG/5 ML CUP PO SCH (22:36)
--- NOTE | 2019-01-27 23:07 | CONS ---
DATE OF ADMISSION: 01/26/2019 DATE OF CONSULTATION: HISTORY OF PRESENT ILLNESS: The patient is an 83-year-old female with a history of dementia, end-sta ge renal disease, diabetes mellitus, status post G-tube, diastolic congestive heart failure, COPD, ad mitted to the hospital for a left femur fracture. The patient was evaluated by the orthopedic alyshao liv, Dr. Miranda. He suggested temporary immobilization of the left leg, and also, he will plan ORIF. GI consult was called in because the G-tube was malfunctioning and could not feed the patient. PAST MEDICAL HISTORY: As described, renal failure on dialysis, diabetes mellitus, osteoarthritis, CO PD, cachexia and dementia. ALLERGIES: NONE. FAMILY HISTORY: Nothing contributory. SOCIAL HISTORY: Resident of intermediate. MEDICATIONS: All reviewed. PHYSICAL EXAMINATION: GENERAL: Thin built, alert, awake, disoriented. CARDIOVASCULAR: No murmur, gallop or click. LUNGS: Clear. ABDOMEN: Soft. G-tube was broken at the top and it was completely clogged. EXTREMITIES: No edema. CENTRAL NERVOUS SYSTEM: Alert, awake, communicating but disoriented. LABORATORY DATA: Hematocrit is 26 to 28. BUN is 20, creatinine is 1.02, albumin is 2.9. IMPRESSION: 1. Malfunctioning gastrostomy tube. 2. Supracondylar fracture of the left femur. 3. Dementia. 4. Diabetes mellitus. 5. Cachexia. 6. End-stage renal disease, on dialysis. 7. Diastolic heart failure. PLAN: Plan at this point is to change the existing G-tube which is 16-Kiswahili and remove. PROCEDURE: We had only 18-Kiswahili G-tube, lubricated the G-tube, and with some pressure, passed the G -tube with much ease into the stomach. We flushed the line with water and there was a reflux of aldo josé miguel content. Impression: Successful change of G-tube done at bedside. Plan is to get a Gastrografin study, make sure the G-tube is in place. If the G-tube is in position, then we will resume the feeding. Dictated By: CHRISS WELCH MD PJ/NTS Conf#: [id number] DID#: [id number] CC: DYLON WALLS MD;*EndCC*
[2019-01-28] VITALS (29 sets, daily range): BP systolic 108–164; BP diastolic 51–81; PULSE 72–98; RESP 16–18
[2019-01-28] MEDS: LANSOPRAZOLE 30 MG CAP GTB SCH (05:11)
[2019-01-28] MEDS: VALPROIC ACID LIQUID CUP 250 MG/5 ML CUP PO SCH ×3 (05:11→21:48)
[2019-01-28] MEDS: DOCUSATE SODIUM 100 MG CAP PO SCH (09:00)
[2019-01-28] MEDS: SEVELAMER CARBONATE 0.8 GM PKT PO SCH ×3 (09:55→20:23)
[2019-01-28] MEDS: QUETIAPINE 25 MG TAB GTB SCH ×2 (09:55→20:23)
[2019-01-28] MEDS: FERROUS SULFATE (EC) 325 MG TAB PO SCH (09:55)
[2019-01-28] MEDS: LINAGLIPTIN 5 MG TABLET GTB SCH (09:55)
[2019-01-28] MEDS: FOLIC ACID 1 MG TAB GTB SCH (09:55)
[2019-01-28] MEDS: FERROUS SULFATE 60 MG/ML 5ML CUP NGT SCH ×2 (09:55→20:23)
[2019-01-28] MEDS: SENNA TAB PO SCH ×2 (09:55→20:23)
[2019-01-28] MEDS: AMLODIPINE 5 MG TAB GTB SCH ×2 (09:56→20:24)
[2019-01-28] MEDS: METOPROLOL 50 MG TAB GTB SCH ×2 (09:56→20:24)
[2019-01-28] MEDS: DOCUSATE SODIUM 10 MG/ML (10ML CUP) GTB SCH ×2 (09:56→20:23)
[2019-01-28] MEDS: HEPARIN 5,000 UNIT/1 ML VIAL SC SCH ×2 (09:58→20:25)
[2019-01-28] MEDS: BALSAM PERU/CASTOR OIL 60 GM TUBE TOP SCH ×2 (10:00→20:26)
--- NOTE | 2019-01-28 15:03 | CONS ---
Assessment/Plan Assessment/Plan Assessment/Plan (Daily) IMPRESSION: 1. Malfunctioning gastrostomy tube. G-tube was changed to 18 [place] and its position verified with the Gastrografin study 2. Supracondylar fracture of the left femur. 3. Dementia. 4. Diabetes mellitus. 5. Cachexia. 6. End-stage renal disease, on dialysis. 7. Diastolic heart failure. Plan Continue feeding through the G-tube. Consultation Date/Type/Reason Admit Date/Time Jan 26, 2019 at 17:14 Initial Consult Date Date/Time of Note DATE: 01/28/19 TIME: 15:03 24 HR Interval Summary Constitutional: improved, disoriented Exam/Review of Systems Exam Vitals Vital Signs Date Temp Pulse Resp B/P (MAP) Pulse Ox O2 O2 Flow FiO2 Time Delivery Rate 01/28/19 98.7 82 18 128/62 100 Room Air 14:00 (84) Intake and Output 01/27/19 01/27/19 01/28/19 1515:00 23:00 07:00 IntakeIntake Total 560 ml 260 ml OutputOutput Total 1400 ml BalanceBalance -1400 ml 560 ml 260 ml Constitutional: alert, oriented, well developed Psych: no complaints, nl mood/affect Head: normocephalic, atraumatic Eyes: nl conjunctiva, EOMI, nl lids, nl sclera, PERRL ENMT: nl external ears & nose, nl lips & teeth, nl nasal mucosa & septum Neck: supple, non-tender Respiratory: clear to auscultation, normal air movement Cardiovascular: regular rate and rhythm, nl pulses Gastrointestinal: soft, nl liver, spleen, non-tender Musculoskeletal: nl extremities to inspection, nl gait and stance Extremities: normal pulses 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: 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 intact, nl mental status, nl speech, nl strength Skin: nl turgor; No rash or lesions Lymph: nl lymph nodes Results Result Diagram: 01/27/1992101/27/19921 Results 24hrs Laboratory Tests Test 01/28/19 09:45 Bedside Glucose 184 Medications Medication Current Medications IV Flush (NS 3 ml) 3 ml PER PROTOCOL IV ; Start 01/26/19 at 17:30 Ondansetron HCl (Zofran Inj) 4 mg Q6H PRN IV NAUSEA/VOMITING; Start 01/26/19 at 17:30 Acetaminophen (Tylenol Tab) 650 mg Q6H PRN PO .PAIN 1-3 OR TEMP; Start 01/26/19 at 17:30 Acetaminophen/ Hydrocodone Bitart ([place] (5/325)) 1 tab Q6H PRN PO .MOD PAIN 4- 6; Start 01/26/19 at 17:30 Morphine Sulfate (morphine) 2 mg Q4H PRN IV .SEVERE PAIN 7-10; Start 01/26/19 at 17:30 Magnesium Hydroxide (Milk Of Mag) 30 ml DAILY PRN PO .CONSTIPATION; Start 01/26/19 at 17:30 Heparin Sodium (Porcine) (Heparin (5000 Units/1ml)) 5,000 unit Q12 SC Last administered on 01/28/19at 09:58; Admin Dose 5,000 UNIT; Start 01/26/19 at 21:00 Acetaminophen (Tylenol Tab) 650 mg Q6H PRN GTB PAIN LEVEL 1-10/10; Start 01/26/19 at 17:30 Amlodipine Besylate (Norvasc) 5 mg BID GTB Last administered on 01/28/19at 09:5 6; Admin Dose 5 MG; Start 01/26/19 at 21:00 Docusate Sodium (Colace) 100 mg DAILY PO ; Start 01/27/19 at 09:00 Ferrous Sulfate (Ferrous Sulfate (Ec)) 325 mg BID PO Last administered on 01/28/19at 09:55; Admin Dose 325 MG; Start 01/26/19 at 21:00 Folic Acid (Folic Acid) 1 mg DAILY GTB Last administered on 01/28/19at 09:55; Admin Dose 1 MG; Start 01/27/19 at 09:00 Hydralazine HCl (Apresoline) 25 mg Q8 PO Last administered on 01/28/19at 05:12; Admin Dose 25 MG; Start 01/26/19 at 22:00 Insulin Aspart (Novolog Insulin Pen) 1 unit SLIDING SCALE AC SC ; Start 01/26/19 at 17:30 Linagliptin (Tradjenta) 5 mg DAILY GTB Last administered on 01/28/19at 09:55; Admin Dose 5 MG; Start 01/27/19 at 09:00 Lorazepam (Ativan) 1 mg HS PRN GTB ANXIETY; Start 01/26/19 at 17:30 Metoprolol Tartrate (Lopressor) 50 mg BID GTB Last administered on 01/28/19 09:56; Admin Dose 50 MG; Start 01/26/19 at 21:00 Polyethylene Glycol (Miralax) 17 gm Q24H GTB Last administered on 01/26/19 21:50; Admin Dose 17 GM; Start 01/26/19 at 17:30 Quetiapine Fumarate (Seroquel) 25 mg BID GTB Last administered on 01/28/19 09:55; Admin Dose 25 MG; Start 01/26/19 at 21:00 Senna (Senokot) 1 tab BID PO Last administered on 01/28/19 09:55; Admin Dose 1 TAB; Start 01/26/19 at 21:00 Sevelamer Carbonate (Renvela) 0.8 gm WITH MEALS PO Last administered on 01/28/19 12:41; Admin Dose 0.8 GM; Start 01/26/19 at 18:00 Lansoprazole (Prevacid) 30 mg DAILY@06 GTB Last administered on 01/28/19 05:11; Admin Dose 30 MG; Start 01/27/19 at 06:00 Heparin Sodium (Porcine) (Heparin (1000 Units/ml)) 4,000 unit AFTER DIALYSIS CATHETER Last administered on 01/27/19 08:30; Admin Dose 3,200 UNIT; Start 01/27/19 at 00:30 Miscellaneous Information (Pending [facility] Order For Wound Care) This patient lane... PRN PRN XX WOUND CARE; Start 01/27/19 at 04:30 Docusate Sodium (Colace Liquid Cup) 100 mg BID GTB Last administered on 01/28/19 09:56; Admin Dose 100 MG; Start 01/27/19 at 10:00 Ferrous Sulfate (Feosol Liquid Cup) 300 mg BID NGT Last administered on 01/28/19 09:55; Admin Dose 300 MG; Start 01/27/19 at 10:00 Valproate Sodium (Depakene Liquid Cup) 250 mg Q8 PO Last administered on 01/28/19 14:37; Admin Dose 250 MG; Start 01/27/19 at 22:00 CHRISS WELCH MD Jan 28, 2019 15:03
--- NOTE | 2019-01-28 15:04 | PN ---
DATE: 01/28/2019 SUBJECTIVE: The patient seen, case was discussed with Dr. Juan Miranda patient to undergo surgery tomri guillermina. A brace was ordered to be given temporarily. PHYSICAL EXAMINATION: VITAL SIGNS: Temperature 98.7, pulse 82, respirations 18, blood pressure 128/62, saturation 100%. GENERAL: The patient is in no acute distress, alert. HEENT: Patient is pending dialysis. CARDIOVASCULAR: S1, S2, regular rate. LUNGS: Clear. ABDOMEN: Soft, nontender. EXTREMITIES: No clubbing, cyanosis, or edema. LABORATORY DATA: No new labs today. MEDICATIONS: 1. Depakote. 2. Colace. 3. Ferrous sulfate. 4. Folic acid. 5. Tradjenta. 6. Prevacid. 7. Heparin. 8. Hydralazine. 9. Norvasc. 10. . 11. Lopressor. 12. Seroquel. 13. Senna. 14. Renvela. 15. Zofran. 16. Tylenol. 17. [place]. 18. Morphine p.r.n. 19. Milk of magnesia. 20. NovoLog. 21. Ativan. 22. MiraLax. ASSESSMENT AND PLAN: This is an 83-year-old [place]ralt[place] female, very ill with multiple medical issues, including diabetes mellitus, end-stage renal disease, dementia, ASCVD, malnutrition, dysphagia, G-tub e feeding, anemia, aspiration pneumonia, history of bacteremia, fungemia, recently presented with sta tus post questionable fall with left distal femur fracture. 1. Respiratory. Stable. Continue aspiration precautions. 2. Cardiovascular. Cardiology will be seeing the patient prior to surgery. Continue heparin for DV T prophylaxis. Continue medications for blood pressure. 3. Left distal femur fracture. Surgery planned for tomorrow. We will discuss with his family. 4. Anemia. Continue Epogen and Protonix for GI prophylaxis. 5. Malfunctioning G-tube. New G-tube was placed. A KUB confirms placement. 6. Diabetes mellitus. Glucose levels are in the 100s. 7. Psychiatric disorder and dementia. Supportive care in restraints p.r.n. 8. Dysphagia. G-tube feeding at 30 mL an hour as tolerated. 9. Follow up tomorrow labs, a decision regarding surgery will be made by the daughter. We will disc uss this with Dr. Miranda. We will follow. Dictated By: DYLON HULL/MADAN Conf#: [id number] DID#: [id number]
--- NOTE | 2019-01-28 16:33 | CONS ---
Assessment/Plan Assessment/Plan Hospital Course (Demo Recall) Cardiovascular preop evaluation Femoral fracture status post fall History of P-atrial fibrillation rapid ventricular response: Currently back in sinus rhythm History of fungemia /fungal urinary tract infection Status post right hand hematoma: Status post I&D Renal failure on dialysis Hypertension Dementia Anemia AI Recommendations: cont beta-farrah Dialysis as per renal team Antibiotic as per ID and internal medicine DVT prophylaxis as per internal medicine Patient is currently optimized medical therapy no cardiac workup would be indicated. Patient would be at at least moderate risk of cardiovascular event given her multiple comorbidities. But she is already on optimized medical therapy and no further cardiac workup will be felt to be beneficial. Thank you for his referral. We will continue to follow along with you as needed CHRISTEN ESCOBEDO MD [facility] Consultation Date/Type/Reason Admit Date/Time Jan 26, 2019 at 17:14 Date of Consultation: Jan 28, 2019 Type of Consult Cardiology Reason for Consultation cv preop Requesting Provider: DYLON WALLS MD Date/Time of Note DATE: 01/28/19 TIME: 16:19 Hx of Present Illness Interventional cardiology consultation note Chief complaint: Femoral fraction Reason for consult: Cardiovascular preop evaluation History of present illness: Thank you for this referral. History was obtained from the review of the chart review of the old chart discussion with physician and staff. Patient herself is not available any history to me. This is an unfortunate 83-year-old Ivorian female, very well known to me who was brought in for femur fracture. . Apparently, she may have fallen. Exact mechanism of injury is unclear. X-rays were done at outside facility which suggests left distal femur fracture. Patient had multiple comorbidities and is pretty much bedbound. She has been intermittently very confused and agitated and is unable to provide any reliable history to me. PAST MEDICAL HISTORY: Includes end-stage renal disease, diabetes mellitus, anemia, osteoarthritis, COPD, diastolic dysfunction heart failure, dysphagia, moderate caloric-protein malnutrition, history of orthopedic surgeries in the past, behavioral disturbances due to dementia. History of one episode of atrial fibrillation on last admission during hemodialysis. History of recurrent falls and injuries despite close observation PAST SURGICAL HISTORY: Hip replacement surgery due to hip fracture, , G-tube placement. ALLERGIES: NO KNOWN ALLERGIES. FAMILY HISTORY: No history of early coronary artery disease SOCIAL HISTORY: The patient's daughter is Alejandro which helps with her care. The patient resides at [facility]. The patient's daughter's phone number is as follows [phone]. No active smoking HOME MEDICATIONS: Reviewed. They include the followin. Ferrous sulfate 300 b.i.d. 2. Amlodipine 5 mg b.i.d. 3. Hydralazine 25 p.r.n. 4. Hydralazine 25 q.8 hours. 5. Lopressor 50 b.i.d. 6. Tylenol p.r.n. 7. Lorazepam 1 mg at bedtime p.r.n. 8. Seroquel 25 b.i.d. 9. Valproic acid 250 q.8. 10. Renvela 0.8 with meals. 11. Colace 100 daily. 12. Lansoprazole 30 mg daily. 13. Linzess 145 mg daily. 14. Zofran p.r.n. 15. MiraLax daily. 16. Senna b.i.d. 17. Insulin aspart per sliding scale. 18. Tradjenta 5 mg daily. 19. Folic acid 1 mg daily. 20. Nephro-Roque 1 tab daily. Review of system: Patient denies all others except for above-mentioned Past Medical History Home Meds Reported Medications Guaifenesin-Dextromethorphan* (Robitussin* DM) 100MG/10MG/5ML Syrup, 5 ML GTB Q4H, ML 01/26/19 Metoclopramide* (Reglan*) 5 Mg Tablet, 5 MG GTB Q6H PRN for NAUSEA AND OR VOMITING, TAB 01/26/19 Na Phos,M-B/Na Phos,Di-Ba (Fleet Enema Extra) Unknown Strength Enema, 1 APPLIC RC Q2D, ENEMA 01/26/19 Bisacodyl* (Bisacodyl*) 10 Mg Supp, 10 MG OR DAILY, SUPP 01/26/19 Magnesium Hydroxide* (Milk Of Magnesia*) 400 Mg/5 Ml Oral.susp, 30 ML GTB QHS, ML 01/26/19 Insulin Glargine* (Lantus*) 100 Unit/Ml Soln, 4 UNIT SC QHS, #1 VIAL 01/26/19 Insulin Aspart* (Novolog Insulin Pen*) 100 Unit/Ml Soln, 0 SC .SLIDING SCALE AC, EA IF BS 0-150=0 UNIT,151-200=1 UNIT,201-250=2 UNITS,251-300=3 UNITS,301-350=4 UNITS,351-400=5 UNITS. IF >400=6 UNITS AND CALL MD IF<60=ORANGE JUICE OR GLUCOSE GEL AND CALL MD 01/26/19 Olanzapine* (Zyprexa*) 5 Mg Tablet, 5 MG GTB DAILY, #30 TAB 01/26/19 Lorazepam* (Lorazepam*) 0.5 Mg Tablet, 0.5 MG GTB HS PRN for ANXIETY, TAB 01/26/19 Amino Acids/Protein Hydrolys (PRO-STAT LIQUID) 30 Ml Liquid.pkt, 30 ML GTB DAILY SUGAR FREE 01/26/19 Multivit &Minerals/Ferrous Fum (MULTIVITAMIN LIQUID) 9 Mg/15 Ml Liquid, 5 ML GTB DAILY 01/26/19 Ascorbic Acid (Vitamin C) 500 Mg Tab, 500 MG GTB DAILY, TAB 01/26/19 Ferrous Sulfate* (Ferrous Sulfate*) 220 Mg/5 Ml Solution, 7.5 ML GTB DAILY, ML 01/26/19 Cran/Vitc/Mannose/Inulin/Brom (Uti-Stat Liquid) 3,875 Mg/30 Ml Liquid, 30 MG GTB BID 01/26/19 Cranberry Extract (Cranberry) 425 Mg Capsule, 425 MG GTB DAILY, CAP 01/26/19 Sevelamer Carbonate* (Renvela*) 800 Mg Tablet, 1.6 GM GTB WITH MEALS, TAB 01/26/19 Metoprolol Tartrate* (Lopressor*) 100 Mg Tablet, 100 MG GTB BID, #60 TAB 01/26/19 Ipratropium-Albuterol (Ipratropium-Albuterol) 0.5-3 Mg/3 Ml Ampul.neb, 3 ML INHALATION Q6, #30 VIAL 01/26/19 Aspirin* (Aspirin* Chew) 81 Mg Tab.chew, 81 MG GTB DAILY, TAB.CHEW 01/26/19 [Nephro-Roque] No Conflict Check, 1 TAB GTB DAILY 01/26/19 Pantoprazole* (Pantoprazole*) 40 Mg Tablet.dr, 40 MG GTB AC BREAKFAST DINNER, TAB 01/26/19 Atorvastatin* (Atorvastatin*) 40 Mg Tablet, 40 MG GTB QHS, #30 TAB 01/26/19 Acetaminophen* (Acetaminophen*) 500 MG Extra Strength Tablet, 1000 MG GTB Q4H PRN for PAIN LEVEL 4-6/10, TAB 01/26/19 Acetaminophen* (Acetaminophen*) 500 MG Extra Strength Tablet, 1000 MG GTB DAILY PRN for PAIN AND OR ELEVATED TEMP, TAB 01/26/19 Acetaminophen* (Acetaminophen*) 325 Mg Tablet, 325 MG GTB Q4H PRN for FOR FEVER 100AND ABOVE, #30 TAB 01/26/19 Lansoprazole* (Lansoprazole*) 30 Mg Capsule.dr, 30 MG PO QAM, CAP 11/16/18 Hydralazine Hcl* (Hydralazine Hcl*) 25 Mg Tab, 25 MG PO Q8, #90 TAB 11/16/18 Valproate Sodium (Valproic Acid) 250 Mg/5 Ml Solution, 250 MG PO Q8, ML 11/16/18 Ondansetron Hcl* (Zofran*) 4 Mg Tab, 4 MG GTB Q4H PRN for NAUSEA AND OR VOMITING, TAB 10/16/18 Linagliptin (TRADJENTA) 5 Mg Tablet, 5 MG GTB DAILY, TAB 10/16/18 Polyethylene Glycol* (Miralax*) 17 Gm Powd.pack, 17 GM GTB Q24H, #30 PACKET 10/16/18 Folic Acid* (Folic Acid*) 1 Mg Tablet, 1 MG GTB DAILY, TAB 10/16/18 Docusate Sodium* (Colace*) 100 Mg Capsule, 100 MG GTB DAILY, #30 CAP 10/16/18 Amlodipine Besylate* (Norvasc*) 5 Mg Tablet, 5 MG GTB BID, TAB TAKE Q TUE,ANDREW,SAT FOR HTN, HOLD FOR SBP<110 OR OR<60 10/16/18 Acetaminophen* (Acetaminophen*) 650 Mg Tablet, 650 MG GTB Q6H PRN for PAIN LEVEL 1-1010, #30 TAB 10/16/18 Discontinued Reported Medications Sennosides* (Senna Lax*) 8.6 Mg Tablet, 1 TAB PO BID, TAB 11/16/18 Sevelamer Carbonate* (Renvela*) 0.8 Gm Powd.pack, 0.8 GM PO WITH MEALS, PACKET 11/16/18 Ferrous Sulfate* (Ferrous Sulfate*) 325 Mg Tabec, 325 MG PO BID for anemia, TAB 11/16/18 Insulin Aspart* (Novolog Insulin Pen*) 100 Unit/Ml Soln, 0 SC .SLIDING SCALE AC, EA IF BS 160-200=2 UNITS,201-250=4 UNITS,251-300=8 UNITS,301-350=12 UNITS;351-400=16 UNITS THEN CALL MD. 10/16/18 Quetiapine Fumarate* (Seroquel*) 25 Mg Tablet, 25 MG GTB BID, #60 TAB 10/16/18 [Nephro-Roque] No Conflict Check, 0.8 MG GTB DAILY 10/16/18 Metoprolol Tartrate* (Lopressor*) 50 Mg Tab, 50 MG GTB DAILY, #60 TAB Q MON,WED,FRI,SUN,HOLD FOR SBP<110 OR OR<60 10/16/18 Metoprolol Tartrate* (Lopressor*) 50 Mg Tab, 50 MG GTB BID, #60 TAB QTUE,ANDREW,SAT,HOLD FOR SBP<110 OR OR<60 10/16/18 Linaclotide (LINZESS) 145 Mcg Capsule, 145 MCG GTB DAILY, #30 CAP 10/16/18 Ipratropium-Albuterol (Ipratropium-Albuterol) 0.5-3 Mg/3 Ml Ampul.neb, 3 ML INHALATION Q6, #30 VIAL FOR 14 DAYS,STOP DATE 10/17/18 10/16/18 Hydralazine Hcl* (Hydralazine Hcl*) 25 Mg Tab, 25 MG GTB DAILY, #60 TAB Q TUE,ANDREW,SAT,HOLD IF SBP<110 OR OR<60 10/16/18 Lorazepam* (Lorazepam*) 1 Mg Tablet, 1 MG GTB HS PRN for ANXIETY, #30 TAB Q TUE,ANDREW,SAT 10/16/18 Medications Current Medications IV Flush (NS 3 ml) 3 ml PER PROTOCOL IV ; Start 01/26/19 at 17:30 Ondansetron HCl (Zofran Inj) 4 mg Q6H PRN IV NAUSEA/VOMITING; Start 01/26/19 at 17:30 Acetaminophen (Tylenol Tab) 650 mg Q6H PRN PO .PAIN 1-3 OR TEMP; Start 01/26/19 at 17:30 Acetaminophen/ Hydrocodone Bitart ([place] (5/325)) 1 tab Q6H PRN PO .MOD PAIN 4- 6; Start 01/26/19 at 17:30 Morphine Sulfate (morphine) 2 mg Q4H PRN IV .SEVERE PAIN 7-10; Start 01/26/19 at 17:30 Magnesium Hydroxide (Milk Of Mag) 30 ml DAILY PRN PO .CONSTIPATION; Start 01/26/19 at 17:30 Heparin Sodium (Porcine) (Heparin (5000 Units/1ml)) 5,000 unit Q12 SC Last administered on 01/28/19 09:58; Admin Dose 5,000 UNIT; Start 01/26/19 at 21:00 Acetaminophen (Tylenol Tab) 650 mg Q6H PRN GTB PAIN LEVEL 1-10/10; Start 01/26/19 at 17:30 Amlodipine Besylate (Norvasc) 5 mg BID GTB Last administered on 01/28/19 09:56; Admin Dose 5 MG; Start 01/26/19 at 21:00 Docusate Sodium (Colace) 100 mg DAILY PO ; Start 01/27/19 at 09:00 Ferrous Sulfate (Ferrous Sulfate (Ec)) 325 mg BID PO Last administered on 01/28/19 09:55; Admin Dose 325 MG; Start 01/26/19 at 21:00 Folic Acid (Folic Acid) 1 mg DAILY GTB Last administered on 01/28/19 09:55; Admin Dose 1 MG; Start 01/27/19 at 09:00 Hydralazine HCl (Apresoline) 25 mg Q8 PO Last administered on 01/28/19at 05:12; Admin Dose 25 MG; Start 01/26/19 at 22:00 Insulin Aspart (Novolog Insulin Pen) 1 unit SLIDING SCALE AC SC ; Start 01/26/19 at 17:30 Linagliptin (Tradjenta) 5 mg DAILY GTB Last administered on 01/28/19 09:55; Admin Dose 5 MG; Start 01/27/19 at 09:00 Lorazepam (Ativan) 1 mg HS PRN GTB ANXIETY; Start 01/26/19 at 17:30 Metoprolol Tartrate (Lopressor) 50 mg BID GTB Last administered on 01/28/19 09:56; Admin Dose 50 MG; Start 01/26/19 at 21:00 Polyethylene Glycol (Miralax) 17 gm Q24H GTB Last administered on 01/26/19 21:50; Admin Dose 17 GM; Start 01/26/19 at 17:30 Quetiapine Fumarate (Seroquel) 25 mg BID GTB Last administered on 01/28/19 09:55; Admin Dose 25 MG; Start 01/26/19 at 21:00 Senna (Senokot) 1 tab BID PO Last administered on 01/28/19 09:55; Admin Dose 1 TAB; Start 01/26/19 at 21:00 Sevelamer Carbonate (Renvela) 0.8 gm WITH MEALS PO Last administered on 01/28/19 12:41; Admin Dose 0.8 GM; Start 01/26/19 at 18:00 Lansoprazole (Prevacid) 30 mg DAILY@06 GTB Last administered on 01/28/19 05:11; Admin Dose 30 MG; Start 01/27/19 at 06:00 Heparin Sodium (Porcine) (Heparin (1000 Units/ml)) 4,000 unit AFTER DIALYSIS CATHETER Last administered on 01/27/19 08:30; Admin Dose 3,200 UNIT; Start 01/27/19 at 00:30 Miscellaneous Information (Pending [facility] Order For Wound Care) This patient lane... PRN PRN XX WOUND CARE; Start 01/27/19 at 04:30 Docusate Sodium (Colace Liquid Cup) 100 mg BID GTB Last administered on 01/28/19 09:56; Admin Dose 100 MG; Start 01/27/19 at 10:00 Ferrous Sulfate (Feosol Liquid Cup) 300 mg BID NGT Last administered on 01/28/19 09:55; Admin Dose 300 MG; Start 01/27/19 at 10:00 Valproate Sodium (Depakene Liquid Cup) 250 mg Q8 PO Last administered on 01/28/19 14:37; Admin Dose 250 MG; Start 01/27/19 at 22:00 Allergies: Coded Allergies: No Known Allergy (Unverified , 01/26/19) Social History Smoking Status: Never smoker Exam/Review of Systems Vital Signs Vitals Vital Signs Date Temp Pulse Resp B/P (MAP) Pulse Ox O2 O2 Flow FiO2 Time Delivery Rate 01/28/19 98.4 89 18 142/70 98 Room Air 16:00 (94) Intake and Output 01/27/19 01/27/19 01/28/19 1515:00 23:00 07:00 IntakeIntake Total 560 ml 260 ml OutputOutput Total 1400 ml BalanceBalance -1400 ml 560 ml 260 ml Exam Exam General: Elderly frail female in no acute distress HEENT: NC/AT. Pupils are equal NECK: NO JVD. no stridor. CV: RRR. systolic murmur; no gallop or rubs. PULM: no wheezing or rhonchi. GI: SOFT, NT, ND, no rebound or guarding neuro: Awake however is confused. Psych: confused rectal: deferred EKG done 01/26/2019 which was personally reviewed showed normal sinus rhythm nonspecific T wave abnormalities review of old chart shows ECHO done Oct 2018: Normal left ventricular systolic function. Normal left ventricular cavity size. Moderate concentric left ventricular hypertrophy. Ejection fraction is visually estimated at 65 %. Abnormal Diastolic Function. Mitral valve leaflets appear moderately thickened. Moderate mitral annular calcification. Trace mitral regurgitation. Aortic valve not well visualized. No hemodynamically significant aortic stenosis by doppler. Aortic sclerosis without significant stenosis. Aortic cusps appear mildly calcified. Mild to moderate aortic valve regurgitation. Estimated peak PA systolic pressure 40 mmHg. Tricuspid valve appears moderately thickened. There is mild tricuspid regurg X-ray 01/27/2019 shows: 1. Oblique distal femoral shaft fracture with angulation and overriding. 2. Postsurgical changes of left femoral ORIF. 3. Soft tissue swelling. 4. Atherosclerosis. Labs Result Diagram: 01/27/19 0922 01/27/19 0922 Results 24hrs Laboratory Tests Test 01/28/19 09:45 Bedside Glucose 184 Medications Medications Current Medications IV Flush (NS 3 ml) 3 ml PER PROTOCOL IV ; Start 01/26/19 at 17:30 Ondansetron HCl (Zofran Inj) 4 mg Q6H PRN IV NAUSEA/VOMITING; Start 01/26/19 at 17:30 Acetaminophen (Tylenol Tab) 650 mg Q6H PRN PO .PAIN 1-3 OR TEMP; Start 01/26/19 at 17:30 Acetaminophen/ Hydrocodone Bitart ([place] (5/325)) 1 tab Q6H PRN PO .MOD PAIN 4- 6; Start 01/26/19 at 17:30 Morphine Sulfate (morphine) 2 mg Q4H PRN IV .SEVERE PAIN 7-10; Start 01/26/19 at 17:30 Magnesium Hydroxide (Milk Of Mag) 30 ml DAILY PRN PO .CONSTIPATION; Start 01/26/19 at 17:30 Heparin Sodium (Porcine) (Heparin (5000 Units/1ml)) 5,000 unit Q12 SC Last administered on 01/28/19at 09:58; Admin Dose 5,000 UNIT; Start 01/26/19 at 21:00 Acetaminophen (Tylenol Tab) 650 mg Q6H PRN GTB PAIN LEVEL 1-10/10; Start 01/26/19 at 17:30 Amlodipine Besylate (Norvasc) 5 mg BID GTB Last administered on 01/28/19 09:5 6; Admin Dose 5 MG; Start 01/26/19 at 21:00 Docusate Sodium (Colace) 100 mg DAILY PO ; Start 01/27/19 at 09:00 Ferrous Sulfate (Ferrous Sulfate (Ec)) 325 mg BID PO Last administered on 01/28/19at 09:55; Admin Dose 325 MG; Start 01/26/19 at 21:00 Folic Acid (Folic Acid) 1 mg DAILY GTB Last administered on 01/28/19 09:55; Admin Dose 1 MG; Start 01/27/19 at 09:00 Hydralazine HCl (Apresoline) 25 mg Q8 PO Last administered on 01/28/19at 05:12; Admin Dose 25 MG; Start 01/26/19 at 22:00 Insulin Aspart (Novolog Insulin Pen) 1 unit SLIDING SCALE AC SC ; Start 01/26/19 at 17:30 Linagliptin (Tradjenta) 5 mg DAILY GTB Last administered on 01/28/19at 09:55; Admin Dose 5 MG; Start 01/27/19 at 09:00 Lorazepam (Ativan) 1 mg HS PRN GTB ANXIETY; Start 01/26/19 at 17:30 Metoprolol Tartrate (Lopressor) 50 mg BID GTB Last administered on 01/28/19at 09:56; Admin Dose 50 MG; Start 01/26/19 at 21:00 Polyethylene Glycol (Miralax) 17 gm Q24H GTB Last administered on 01/26/19at 21:50; Admin Dose 17 GM; Start 01/26/19 at 17:30 Quetiapine Fumarate (Seroquel) 25 mg BID GTB Last administered on 01/28/19 09:55; Admin Dose 25 MG; Start 01/26/19 at 21:00 Senna (Senokot) 1 tab BID PO Last administered on 01/28/19 09:55; Admin Dose 1 TAB; Start 01/26/19 at 21:00 Sevelamer Carbonate (Renvela) 0.8 gm WITH MEALS PO Last administered on 01/28/19 12:41; Admin Dose 0.8 GM; Start 01/26/19 at 18:00 Lansoprazole (Prevacid) 30 mg DAILY@06 GTB Last administered on 01/28/19 05:11; Admin Dose 30 MG; Start 01/27/19 at 06:00 Heparin Sodium (Porcine) (Heparin (1000 Units/ml)) 4,000 unit AFTER DIALYSIS CATHETER Last administered on 01/27/19 08:30; Admin Dose 3,200 UNIT; Start 01/27/19 at 00:30 Miscellaneous Information (Pending [facility] Order For Wound Care) This patient lane... PRN PRN XX WOUND CARE; Start 01/27/19 at 04:30 Docusate Sodium (Colace Liquid Cup) 100 mg BID GTB Last administered on 01/28/19 09:56; Admin Dose 100 MG; Start 01/27/19 at 10:00 Ferrous Sulfate (Feosol Liquid Cup) 300 mg BID NGT Last administered on 01/28/19 09:55; Admin Dose 300 MG; Start 01/27/19 at 10:00 Valproate Sodium (Depakene Liquid Cup) 250 mg Q8 PO Last administered on 01/28/19 14:37; Admin Dose 250 MG; Start 01/27/19 at 22:00 CHRISTEN ESCOBEDO MD Jan 28, 2019 16:30
[2019-01-28] MEDS: HEPARIN 1000 UNITS/ML 10 ML INJ CATHETER SCH (18:37)
[2019-01-28] MEDS: POLYETHYLENE GLYCOL 17 GM PACKET GTB SCH (20:23)
[2019-01-29] VITALS (29 sets, daily range): BP systolic 100–182; BP diastolic 50–75; PULSE 72–103; RESP 16–32
[2019-01-29] MEDS: LANSOPRAZOLE 30 MG CAP GTB SCH (05:47)
[2019-01-29] MEDS: VALPROIC ACID LIQUID CUP 250 MG/5 ML CUP PO SCH ×3 (05:47→22:28)
[2019-01-29] MEDS: SEVELAMER CARBONATE 0.8 GM PKT PO SCH ×2 (07:35→11:30)
[2019-01-29] MEDS: FOLIC ACID 1 MG TAB GTB SCH (09:00)
[2019-01-29] MEDS: QUETIAPINE 25 MG TAB GTB SCH ×2 (09:00→20:38)
[2019-01-29] MEDS: DOCUSATE SODIUM 100 MG CAP PO SCH (09:00)
[2019-01-29] MEDS: FERROUS SULFATE 60 MG/ML 5ML CUP NGT SCH ×2 (09:00→20:38)
[2019-01-29] MEDS: HEPARIN 5,000 UNIT/1 ML VIAL SC SCH ×2 (09:00→20:42)
[2019-01-29] MEDS: DOCUSATE SODIUM 10 MG/ML (10ML CUP) GTB SCH ×2 (09:00→20:38)
[2019-01-29] MEDS: SENNA TAB PO SCH ×2 (09:00→20:38)
[2019-01-29] MEDS: LINAGLIPTIN 5 MG TABLET GTB SCH (09:00)
[2019-01-29] MEDS: BALSAM PERU/CASTOR OIL 60 GM TUBE TOP SCH ×2 (09:22→20:39)
[2019-01-29] MEDS: AMLODIPINE 5 MG TAB GTB SCH ×2 (09:27→20:38)
[2019-01-29] MEDS: METOPROLOL 50 MG TAB GTB SCH ×2 (09:27→20:39)
--- NOTE | 2019-01-29 11:24 | HPN ---
Date/Time of Note Date/Time of Note DATE: 01/29/19 TIME: 11:23 Interval H&P Admission Note Pt. seen H&P reviewed: No system changes LADONNA RIVERA MD Jan 29, 2019 11:24
[2019-01-29] MEDS ORDERED: POLYMYXIN/BACITRACIN 1L IRRIG ONE (11:36)
--- NOTE | 2019-01-29 12:01 | PREAC ---
Date/Time of Note Date/Time of Note DATE: 01/29/19 TIME: 11:54 Anesthesia Eval and Record Evaluation Time Pre-Procedure Interview DATE: 01/29/19 TIME: 11:54 Age 83 Sex female NPO: 8 hrs Preoperative diagnosis Lt femur fracture Planned procedure Lt femur ORIF Past Medical History Past Medical History: Includes Cardio: HTN, Dyslipidemia Endo: Diabetes Pulm: COPD Musculoskeletal: Osteoarthritis Surgery & Anesthesia Issues No known issue Meds Anticoagulation: Yes Beta Magalys within 24 hr: Yes Reported Medications Guaifenesin-Dextromethorphan* (Robitussin* DM) 100MG/10MG/5ML Syrup, 5 ML GTB Q4H, ML 01/26/19 Metoclopramide* (Reglan*) 5 Mg Tablet, 5 MG GTB Q6H PRN for NAUSEA AND OR VOMITING, TAB 01/26/19 Na Phos,M-B/Na Phos,Di-Ba (Fleet Enema Extra) Unknown Strength Enema, 1 APPLIC RC Q2D, ENEMA 01/26/19 Bisacodyl* (Bisacodyl*) 10 Mg Supp, 10 MG DE DAILY, SUPP 01/26/19 Magnesium Hydroxide* (Milk Of Magnesia*) 400 Mg/5 Ml Oral.susp, 30 ML GTB QHS, ML 01/26/19 Insulin Glargine* (Lantus*) 100 Unit/Ml Soln, 4 UNIT SC QHS, #1 VIAL 01/26/19 Insulin Aspart* (Novolog Insulin Pen*) 100 Unit/Ml Soln, 0 SC .SLIDING SCALE AC, EA IF BS 0-150=0 UNIT,151-200=1 UNIT,201-250=2 UNITS,251-300=3 UNITS,301-350=4 UNITS,351-400=5 UNITS. IF >400=6 UNITS AND CALL MD IF<60=ORANGE JUICE OR GLUCOSE GEL AND CALL MD 01/26/19 Olanzapine* (Zyprexa*) 5 Mg Tablet, 5 MG GTB DAILY, #30 TAB 01/26/19 Lorazepam* (Lorazepam*) 0.5 Mg Tablet, 0.5 MG GTB HS PRN for ANXIETY, TAB 01/26/19 Amino Acids/Protein Hydrolys (PRO-STAT LIQUID) 30 Ml Liquid.pkt, 30 ML GTB DAILY SUGAR FREE 01/26/19 Multivit &Minerals/Ferrous Fum (MULTIVITAMIN LIQUID) 9 Mg/15 Ml Liquid, 5 ML GTB DAILY 01/26/19 Ascorbic Acid (Vitamin C) 500 Mg Tab, 500 MG GTB DAILY, TAB 01/26/19 Ferrous Sulfate* (Ferrous Sulfate*) 220 Mg/5 Ml Solution, 7.5 ML GTB DAILY, ML 01/26/19 Cran/Vitc/Mannose/Inulin/Brom (Uti-Stat Liquid) 3,875 Mg/30 Ml Liquid, 30 MG GTB BID 01/26/19 Cranberry Extract (Cranberry) 425 Mg Capsule, 425 MG GTB DAILY, CAP 01/26/19 Sevelamer Carbonate* (Renvela*) 800 Mg Tablet, 1.6 GM GTB WITH MEALS, TAB 01/26/19 Metoprolol Tartrate* (Lopressor*) 100 Mg Tablet, 100 MG GTB BID, #60 TAB 01/26/19 Ipratropium-Albuterol (Ipratropium-Albuterol) 0.5-3 Mg/3 Ml Ampul.neb, 3 ML INHALATION Q6, #30 VIAL 01/26/19 Aspirin* (Aspirin* Chew) 81 Mg Tab.chew, 81 MG GTB DAILY, TAB.CHEW 01/26/19 [Nephro-Roque] No Conflict Check, 1 TAB GTB DAILY 01/26/19 Pantoprazole* (Pantoprazole*) 40 Mg Tablet.dr, 40 MG GTB AC BREAKFAST DINNER, TAB 01/26/19 Atorvastatin* (Atorvastatin*) 40 Mg Tablet, 40 MG GTB QHS, #30 TAB 01/26/19 Acetaminophen* (Acetaminophen*) 500 MG Extra Strength Tablet, 1000 MG GTB Q4H PRN for PAIN LEVEL 4-6/10, TAB 01/26/19 Acetaminophen* (Acetaminophen*) 500 MG Extra Strength Tablet, 1000 MG GTB DAILY PRN for PAIN AND OR ELEVATED TEMP, TAB 01/26/19 Acetaminophen* (Acetaminophen*) 325 Mg Tablet, 325 MG GTB Q4H PRN for FOR FEVER 100AND ABOVE, #30 TAB 01/26/19 Lansoprazole* (Lansoprazole*) 30 Mg Capsule.dr, 30 MG PO QAM, CAP 11/16/18 Hydralazine Hcl* (Hydralazine Hcl*) 25 Mg Tab, 25 MG PO Q8, #90 TAB 11/16/18 Valproate Sodium (Valproic Acid) 250 Mg/5 Ml Solution, 250 MG PO Q8, ML 11/16/18 Ondansetron Hcl* (Zofran*) 4 Mg Tab, 4 MG GTB Q4H PRN for NAUSEA AND OR VOMITING, TAB 10/16/18 Linagliptin (TRADJENTA) 5 Mg Tablet, 5 MG GTB DAILY, TAB 10/16/18 Polyethylene Glycol* (Miralax*) 17 Gm Powd.pack, 17 GM GTB Q24H, #30 PACKET 10/16/18 Folic Acid* (Folic Acid*) 1 Mg Tablet, 1 MG GTB DAILY, TAB 10/16/18 Docusate Sodium* (Colace*) 100 Mg Capsule, 100 MG GTB DAILY, #30 CAP 10/16/18 Amlodipine Besylate* (Norvasc*) 5 Mg Tablet, 5 MG GTB BID, TAB TAKE Q TUE,ANDREW,SAT FOR HTN, HOLD FOR SBP<110 OR DE<60 10/16/18 Acetaminophen* (Acetaminophen*) 650 Mg Tablet, 650 MG GTB Q6H PRN for PAIN LEVEL 1-08/18, #30 TAB 10/16/18 Discontinued Reported Medications Sennosides* (Senna Lax*) 8.6 Mg Tablet, 1 TAB PO BID, TAB 11/16/18 Sevelamer Carbonate* (Renvela*) 0.8 Gm Powd.pack, 0.8 GM PO WITH MEALS, PACKET 11/16/18 Ferrous Sulfate* (Ferrous Sulfate*) 325 Mg Tabec, 325 MG PO BID for anemia, TAB 11/16/18 Insulin Aspart* (Novolog Insulin Pen*) 100 Unit/Ml Soln, 0 SC .SLIDING SCALE AC, EA IF BS 160-200=2 UNITS,201-250=4 UNITS,251-300=8 UNITS,301-350=12 UNITS;351-400=16 UNITS THEN CALL . 10/16/18 Quetiapine Fumarate* (Seroquel*) 25 Mg Tablet, 25 MG GTB BID, #60 TAB 10/16/18 [Nephro-Roque] No Conflict Check, 0.8 MG GTB DAILY 10/16/18 Metoprolol Tartrate* (Lopressor*) 50 Mg Tab, 50 MG GTB DAILY, #60 TAB Q MON,WED,FRI,SUN,HOLD FOR SBP<110 OR DE<60 10/16/18 Metoprolol Tartrate* (Lopressor*) 50 Mg Tab, 50 MG GTB BID, #60 TAB QTUE,ANDREW,SAT,HOLD FOR SBP<110 OR DE<60 10/16/18 Linaclotide (LINZESS) 145 Mcg Capsule, 145 MCG GTB DAILY, #30 CAP 10/16/18 Ipratropium-Albuterol (Ipratropium-Albuterol) 0.5-3 Mg/3 Ml Ampul.neb, 3 ML INHALATION Q6, #30 VIAL FOR 14 DAYS,STOP DATE 10/17/18 10/16/18 Hydralazine Hcl* (Hydralazine Hcl*) 25 Mg Tab, 25 MG GTB DAILY, #60 TAB Q TUE,ANDREW,SAT,HOLD IF SBP<110 OR DE<60 10/16/18 Lorazepam* (Lorazepam*) 1 Mg Tablet, 1 MG GTB HS PRN for ANXIETY, #30 TAB Q TUE,ANDREW,SAT 10/16/18 Current Medications IV Flush (NS 3 ml) 3 ml PER PROTOCOL IV ; Start 01/26/19 at 17:30 Ondansetron HCl (Zofran Inj) 4 mg Q6H PRN IV NAUSEA/VOMITING; Start 01/26/19 at 17:30 Acetaminophen (Tylenol Tab) 650 mg Q6H PRN PO .PAIN 1-3 OR TEMP; Start 01/26/19 at 17:30 Acetaminophen/ Hydrocodone Bitart ([place] (5/325)) 1 tab Q6H PRN PO .MOD PAIN 4- 6; Start 01/26/19 at 17:30 Morphine Sulfate (morphine) 2 mg Q4H PRN IV .SEVERE PAIN 7-10; Start 01/26/19 at 17:30 Magnesium Hydroxide (Milk Of Mag) 30 ml DAILY PRN PO .CONSTIPATION; Start 01/26/19 at 17:30 Heparin Sodium (Porcine) (Heparin (5000 Units/1ml)) 5,000 unit Q12 SC Last administered on 01/28/19at 20:25; Admin Dose 5,000 UNIT; Start 01/26/19 at 21:00 Acetaminophen (Tylenol Tab) 650 mg Q6H PRN GTB PAIN LEVEL 1-10/10; Start 01/26/19 at 17:30 Amlodipine Besylate (Norvasc) 5 mg BID GTB Last administered on 01/29/19 09:27; Admin Dose 5 MG; Start 01/26/19 at 21:00 Docusate Sodium (Colace) 100 mg DAILY PO ; Start 01/27/19 at 09:00 Folic Acid (Folic Acid) 1 mg DAILY GTB Last administered on 01/28/19 09:55; Admin Dose 1 MG; Start 01/27/19 at 09:00 Hydralazine HCl (Apresoline) 25 mg Q8 PO Last administered on 01/28/19 21:48; Admin Dose 25 MG; Start 01/26/19 at 22:00 Insulin Aspart (Novolog Insulin Pen) 1 unit SLIDING SCALE AC SC ; Start 01/26/19 at 17:30 Linagliptin (Tradjenta) 5 mg DAILY GTB Last administered on 01/28/19 09:55; Admin Dose 5 MG; Start 01/27/19 at 09:00 Lorazepam (Ativan) 1 mg HS PRN GTB ANXIETY Last administered on 01/28/19 22:27; Admin Dose 1 MG; Start 01/26/19 at 17:30 Metoprolol Tartrate (Lopressor) 50 mg BID GTB Last administered on 01/29/19 09:27; Admin Dose 50 MG; Start 01/26/19 at 21:00 Polyethylene Glycol (Miralax) 17 gm Q24H GTB Last administered on 01/28/19 20:23; Admin Dose 17 GM; Start 01/26/19 at 17:30 Quetiapine Fumarate (Seroquel) 25 mg BID GTB Last administered on 01/28/19 20:23; Admin Dose 25 MG; Start 01/26/19 at 21:00 Senna (Senokot) 1 tab BID PO Last administered on 01/28/19 20:23; Admin Dose 1 TAB; Start 01/26/19 at 21:00 Sevelamer Carbonate (Renvela) 0.8 gm WITH MEALS PO Last administered on 9at 20:23; Admin Dose 0.8 GM; Start 01/26/19 at 18:00 Lansoprazole (Prevacid) 30 mg DAILY@06 GTB Last administered on 01/28/19at 05:11; Admin Dose 30 MG; Start 01/27/19 at 06:00 Heparin Sodium (Porcine) (Heparin (1000 Units/ml)) 4,000 unit AFTER DIALYSIS CATHETER Last administered on 01/28/19at 18:37; Admin Dose 4,000 UNIT; Start 01/27/19 at 00:30 Miscellaneous Information (Pending Santyl Order For Wound Care) This patient lane... PRN PRN XX WOUND CARE; Start 01/27/19 at 04:30 Docusate Sodium (Colace Liquid Cup) 100 mg BID GTB Last administered on 01/28/19at 20:23; Admin Dose 100 MG; Start 01/27/19 at 10:00 Ferrous Sulfate (Feosol Liquid Cup) 300 mg BID NGT Last administered on 01/28/19at 20:23; Admin Dose 300 MG; Start 01/27/19 at 10:00 Valproate Sodium (Depakene Liquid Cup) 250 mg Q8 PO Last administered on 01/28/19at 21:48; Admin Dose 250 MG; Start 01/27/19 at 22:00 Meds reviewed: Yes Allergies Coded Allergies: No Known Allergy (Unverified , 01/26/19) Allergies Reviewed: Yes Labs/Studies Labs Reviewed: Reviewed by anesthesiologist Result Diagram: 01/29/19 0443 01/29/19 0442 Laboratory Tests 01/29/19 04:42 01/29/19 04:43 Blood Bank Test 01/28/19 19:11 Antibody Screen NEGATIVE Blood Product Summary Counts Blood Type A POSITIVE Crossmatch Red Blood Cells test: N/A Studies: ECG Pre-procedure Exam Last vitals Vital Signs Date Temp Pulse Resp B/P (MAP) Pulse Ox O2 O2 Flow FiO2 Time Delivery Rate 01/29/19 85 159/70 09:22 (99) 01/29/19 97.8 18 98 04:00 01/28/19 Room Air 22:00 Airway: Adequate mouth opening, Adequate thyromental dist Mallampati: Mallampati II Teeth: Normal Lung: Normal Heart: Normal ASA Physical Status ASA physical status: 4 Emergency: E Planned Anesthetic General/MAC: LMA Planned Pain Management Single shot nerve block, Parenteral pain med Pre-operative Attestations Prior to commencing anesthesia and surgery, the patient was re-evaluated, there was verification of: *The patient's identity *The results of appropriate recent lab work and preoperative vital signs *The above evaluation not changing prior to induction *Anesthetic plan, risk benefits, alternative and complications discussed with patient/family; questions answered; patient/family understands, accepts and wishes to proceed. BIRD QUINONES MD Jan 29, 2019 12:01
[2019-01-29] MEDS ORDERED: MIDAZOLAM 1 MG/ML 2 ML INJ ONE (12:06)
[2019-01-29] MEDS ORDERED: FENTAnyl 50 MCG/ML VIAL ONE ×2 (12:06→13:58)
--- NOTE | 2019-01-29 14:30 | PN ---
DATE: 01/29/2019 SUBJECTIVE: The patient is actually undergoing a left distal femoral repair surgery with Dr. Juan jaimes. Case discussed with Dr. Miranda and with family. PHYSICAL EXAMINATION: VITAL SIGNS: Temperature 97.8, pulse 85, respirations 18, blood pressure 159/70, saturation 98% areli ier today. GENERAL: The patient again is in surgery. LABORATORY DATA: This morning white count 9.9, hemoglobin 9.1, hematocrit 29, platelet count of 388 with normal differential. Chemistry: Sodium 141, potassium 3.8, chloride 100, bicarbonate 33, BUN i s 22, creatinine 1.22, glucose 114. MEDICATIONS: 1. Depakote. 2. Colace. 3. Folic acid. 4. Tradjenta. 5. Prevacid. 6. Heparin. 7. Hydralazine. 8. Norvasc. 9. Lopressor. 10. Seroquel. 11. Senna. 12. Renvela. 13. Zofran. 14. Tylenol. 15. Joiner. 16. Morphine p.r.n. 17. Milk of magnesia. 18. Tylenol. 19. NovoLog. 20. Ativan. 21. MiraLax. ASSESSMENT AND PLAN: This is an 83-year-old [place] female, very ill with multiple medical issues i ncluding diabetes mellitus, end-stage renal disease, dementia, chronic kidney disease, malnutrition, dysphagia, G-tube feeding, anemia, aspiration pneumonia, history of bacteremia, fungemia now presente d with questionable fall, was found to have left distal femur fracture. 1. Respiratory. Stable. Continue aspiration precaution. 2. Cardiovascular. The patient is on DVT prophylaxis. Patient overall is high risk, but surgery wa s recommended, as the patient may experience pain without surgery. 3. Follow up patient postoperatively. 4. Anemia. 5. Epogen. 6. transfusion p.r.n. 7. Malfunctioning G-tube, status post recent placement by Dr. Baird. 8. Diabetes mellitus, controlled with glucose level in the 100s. 9. Psychiatric disorder and dementia. Continue supportive care and p.r.n. restraints. 10. Dysphagia. G-tube feeding at 30 mL an hour as tolerated. 11. Monitor patient postoperatively. 12. Overall prognosis is poor due to multiple medical issues and overall decline. Dictated By: DYLON HULL/MADAN Conf#: [id number] [facility]#: [id number]
[2019-01-29] MEDS ORDERED: LIDOCAINE 2% (SDV) 5 ML INJ ONE (14:49)
[2019-01-29] MEDS ORDERED: CEFAZOLIN 1 GM INJ ONE (14:49)
[2019-01-29] MEDS ORDERED: ONDANSETRON 4 MG INJ ONE (14:49)
[2019-01-29] MEDS ORDERED: ETOMIDATE 20 MG INJ ONE (14:49)
[2019-01-29] MEDS ORDERED: SEVOFLURANE 15 MIN ONE (14:50)
[2019-01-29] MEDS ORDERED: ROPIVACAINE 0.5 % 30 ML VIAL ONE (14:52)
[2019-01-29] MEDS ORDERED: DIPHENHYDRAMINE 50 MG INJ IV PRN (15:30)
[2019-01-29] MEDS ORDERED: ONDANSETRON 4 MG INJ IV PRN (15:30)
[2019-01-29] MEDS ORDERED: NACL 0.9% 3 ML SYG IV SCH (15:30)
[2019-01-29] MEDS ORDERED: hydrALAzine 20 MG INJ IV PRN (15:30)
[2019-01-29] MEDS ORDERED: EPHEDrine SULFATE 50 MG/5 ML SYG IV PRN (15:30)
[2019-01-29] MEDS ORDERED: LABETALOL HCL 20MG INJ IV PRN (15:30)
[2019-01-29] MEDS ORDERED: FENTAnyl 50 MCG/ML VIAL IV PRN (15:30)
[2019-01-29] MEDS ORDERED: METOCLOPRAMIDE 10 MG INJ IV PRN (15:30)
[2019-01-29] MEDS ORDERED: HYDROmorphONE 1 MG/5 ML IV SYRINGE IV PRN ×2 (15:30)
--- NOTE | 2019-01-29 15:31 | PAC ---
Date/Time of Note Date/Time of Note DATE: 01/29/19 TIME: 15:30 Post-Anesthesia Notes Post-Anesthesia Note Last documented vital signs Vital Signs Date Temp Pulse Resp B/P (MAP) Pulse Ox O2 O2 Flow FiO2 Time Delivery Rate 01/29/19 85 159/70 09:22 (99) 01/29/19 97.8 18 98 04:00 01/28/19 Room Air 22:00 Activity: WNL Respiratory function: WNL Cardiovascular function: WNL Mental status: Baseline Pain reasonably controlled: Yes Hydration appropriate: Yes Nausea/Vomiting absent: Yes Comments BP:154/67, P:84, Spo2:100%, T:98,4 BIRD QUINONES MD Jan 29, 2019 15:31
[2019-01-29] MEDS ORDERED: morphine 2 MG INJ IV PRN (16:00)
[2019-01-29] MEDS ORDERED: INSULIN ASPART [NOVOLOG] 3 ML PEN SC ONE (16:00)
--- NOTE | 2019-01-29 16:05 | SIPON ---
Date/Time of Note Date/Time of Note DATE: 01/29/19 TIME: 15:53 Operative Report Preoperative Diagnosis supracondylar frcctureof Lt. femur Postoperative Diagnosis same Operation/Procedure Performed O.R.I.F of supracondylar fracture of Lt. femur Surgeon see signature line engineer assistant none Anesthesia: general Estimated blood loss: 100 - 150 ml's Transfusion Required none Specimen none Grafts/Implants none Complications none LADONNA RIVERA MD Jan 29, 2019 16:04
[2019-01-29] MEDS ORDERED: CEFAZOLIN 1 GM/50 ML (PMX) 50 ML IVPB SCH (17:00)
--- NOTE | 2019-01-29 17:09 | OPR ---
DATE OF OPERATION: 01/29/2019 PREOPERATIVE DIAGNOSIS: Supracondylar fracture of the left femur. POSTOPERATIVE DIAGNOSIS: Supracondylar fracture of the left femur. PROCEDURE PERFORMED: Open reduction and internal fixation utilizing accord cable system. ANESTHESIA: General anesthesia. SURGEON: Cesario Rivera MD PROCEDURES AND FINDINGS: Under anesthesia, the patient was placed on top of the fracture table. Uti lizing fracture table and under fluoroscopic monitoring, preliminary manipulative reduction of the fr acture was carried out until an acceptable alignment could be achieved. After inflating the tourniquet, supracondylar fracture of the left femur was approached through the l ateral longitudinal incision over the area. By blunt and sharp dissection, the fracture was identifi ed and exposed and explored. It was noted that her skeletal structures were extremely osteoporotic a nd almost felt like a cardboard. In addition, not like the radiologic findings, there was some addit ional comminution identified. It was noted that because of the extreme softness and comminution, any extensive dissection attempt for open reduction could cause more harm and more comminutions. The fracture was further induced to be in line up with a jose ramon clamp and then internal fixation was ca rried out prior to applying 3 separate cable system. The prescheduled further fixation with a lockin g screw into the preexisting intramedullary inocencia was impossible because of the comminution along with the soft nature of the skeletal structures. After confirming the acceptable alignment of the fractur e and proper position of the fixation device and after irrigation and hemostasis, closure of the inci robert was carried out using 0 Vicryl for muscle and fascia and 2-0 Vicryl for subcutaneous tissues. F inal skin closure was carried out with skin chava. The usual sterile pressure dressings were appli ed. The patient tolerated the entire procedure very well and was sent to the recovery room in excellent c ondition. Dictated By: CESARIO RIVERA MD IK/NTS Conf#: [id number] DID#: [id number] CC: DYLON WALLS MD;*EndCC*
--- NOTE | 2019-01-29 17:15 | CONS ---
Assessment/Plan Assessment/Plan Assessment/Plan (Daily) 1 Left knee effusion,acuute oblique moderately displaced distal femur fracture 3. End-stage renal disease. 4. Hypertension. 5. Diabetes mellitus. 6. G-tube placement. 7. Atrial fibrillation. 8. 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 9. History of multiple sepsis including pneumonia and fungal sepsis. 10. Anemia. 11. Blood transfusion. 12. Hyponatremia. 13. Malnutrition. 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 15. Hypoalbuminemia. Plan- cw HD MWF, HD TODAY - ortho to see and per plan - Avoid nephrotoxins - Renally dose all meds OR TMW Consultation Date/Type/Reason Admit Date/Time Jan 26, 2019 at 17:14 Initial Consult Date Requesting Provider: DYLON WALLS MD Date/Time of Note DATE: 01/29/19 TIME: 17:14 24 HR Interval Summary Free Text/Dictation note from 01/28/19 HB 9.1 Exam/Review of Systems Exam Vitals Vital Signs Date Temp Pulse Resp B/P (MAP) Pulse Ox O2 O2 Flow FiO2 Time Delivery Rate 01/29/19 98.4 15:29 01/29/19 Simple 8.0 15:26 Mask 01/29/19 82 18 100/52 100 15:26 (68) Intake and Output 01/28/19 01/28/19 01/29/19 1515:00 23:00 07:00 IntakeIntake Total 260 ml OutputOutput Total 2600 ml BalanceBalance -2600 ml 260 ml Exam GENERAL: The patient is in no acute distress. HEENT: Pale, temporal wasting. CARDIOVASCULAR: S1, S2, regular rate. The patient has a left upper chest PermCath. ABDOMEN: Soft. Binder and G-tube is in place. EXTREMITIES: There is no clubbing condition or cyanosis. There is left knee swelling and is flexed. Apparent swelling is definitely noted. This patient has pain in that area upon slight moving the left lower extre Results Result Diagram: 01/29/19 1649 01/29/19 0442 Results 24hrs Laboratory Tests Test 01/28/19 20:27 01/29/19 04:42 01/29/19 04:43 01/29/19 08:12 Bedside Glucose 198 120 Prothrombin Time 12.6 Prothrombin Time 1.0 Ratio INR International 0.93 Normalized Ratio Activated 36.7 H Partial Thromboplast Time Sodium Level 141 Potassium Level 3.8 Chloride Level 100 Carbon Dioxide Level 33 H Anion Gap 8 Blood Urea Nitrogen 23 H Creatinine 1.22 H Est Glomerular Filtrat Rate mL/min Glucose Level 114 # Calcium Level 9.0 Phosphorus Level 1.6 L Magnesium Level 2.2 White Blood Count 9.9 # Red Blood Count 3.46 L Hemoglobin 9.1 L Hematocrit 29.2 L Mean Corpuscular 84.4 Volume Mean Corpuscular 26.3 L Hemoglobin Mean Corpuscular 31.2 L Hemoglobin Concent Red Cell 17.4 H Distribution Width Platelet Count 388 # Mean Platelet Volume 10.9 H Immature 1.100 H Granulocytes % Neutrophils % 77.4 H Lymphocytes % 10.2 L Monocytes % 8.9 Eosinophils % 2.1 Basophils % 0.3 Nucleated Red Blood 0.3 H Cells % Immature 0.110 H Granulocytes # Neutrophils # 7.7 H Lymphocytes # 1.0 Monocytes # 0.9 Eosinophils # 0.2 Basophils # 0.0 Nucleated Red Blood 0.0 Cells # Test 01/29/19 15:31 01/29/19 16:49 Bedside Glucose 194 Hemoglobin 9.7 L Hematocrit 32.1 L Medications Medication Current Medications IV Flush (NS 3 ml) 3 ml PER PROTOCOL IV ; Start 01/26/19 at 17:30 Ondansetron HCl (Zofran Inj) 4 mg Q6H PRN IV NAUSEA/VOMITING; Start 01/26/19 at 17:30 Acetaminophen (Tylenol Tab) 650 mg Q6H PRN PO .PAIN 1-3 OR TEMP; Start 01/26/19 at 17:30 Acetaminophen/ Hydrocodone Bitart ([place] (5/325)) 1 tab Q6H PRN PO .MOD PAIN 4- 6; Start 01/26/19 at 17:30 Morphine Sulfate (morphine) 2 mg Q4H PRN IV .SEVERE PAIN 7-10; Start 01/26/19 at 17:30 Magnesium Hydroxide (Milk Of Mag) 30 ml DAILY PRN PO .CONSTIPATION; Start 01/26/19 at 17:30 Heparin Sodium (Porcine) (Heparin (5000 Units/1ml)) 5,000 unit Q12 SC Last administered on 01/28/19at 20:25; Admin Dose 5,000 UNIT; Start 01/26/19 at 21:00 Acetaminophen (Tylenol Tab) 650 mg Q6H PRN GTB PAIN LEVEL 1-10; Start at 17:30 Amlodipine Besylate (Norvasc) 5 mg BID GTB Last administered on 01/29/19 09:27; Admin Dose 5 MG; Start 01/26/19 at 21:00 Docusate Sodium (Colace) 100 mg DAILY PO ; Start 01/27/19 at 09:00 Folic Acid (Folic Acid) 1 mg DAILY GTB Last administered on 01/28/19 09:55; Admin Dose 1 MG; Start 01/27/19 at 09:00 Hydralazine HCl (Apresoline) 25 mg Q8 PO Last administered on 01/28/19 21:48; Admin Dose 25 MG; Start 01/26/19 at 22:00 Insulin Aspart (Novolog Insulin Pen) 1 unit SLIDING SCALE AC SC ; Start 01/26/19 at 17:30 Linagliptin (Tradjenta) 5 mg DAILY GTB Last administered on 01/28/19 09:55; Admin Dose 5 MG; Start 01/27/19 at 09:00 Lorazepam (Ativan) 1 mg HS PRN GTB ANXIETY Last administered on 01/28/19 22:27; Admin Dose 1 MG; Start 01/26/19 at 17:30 Metoprolol Tartrate (Lopressor) 50 mg BID GTB Last administered on 01/29/19 09:27; Admin Dose 50 MG; Start 01/26/19 at 21:00 Polyethylene Glycol (Miralax) 17 gm Q24H GTB Last administered on 01/28/19 20:23; Admin Dose 17 GM; Start 01/26/19 at 17:30 Quetiapine Fumarate (Seroquel) 25 mg BID GTB Last administered on 01/28/19 20:23; Admin Dose 25 MG; Start 01/26/19 at 21:00 Senna (Senokot) 1 tab BID PO Last administered on 01/28/19 20:23; Admin Dose 1 TAB; Start 01/26/19 at 21:00 Lansoprazole (Prevacid) 30 mg DAILY@06 GTB Last administered on 01/28/19 05:11; Admin Dose 30 MG; Start 01/27/19 at 06:00 Heparin Sodium (Porcine) (Heparin (1000 Units/ml)) 4,000 unit AFTER DIALYSIS CATHETER Last administered on 01/28/19at 18:37; Admin Dose 4,000 UNIT; Start 01/27/19 at 00:30 Miscellaneous Information (Pending Santyl Order For Wound Care) This patient lane... PRN PRN XX WOUND CARE; Start 01/27/19 at 04:30 Docusate Sodium (Colace Liquid Cup) 100 mg BID GTB Last administered on 01/28/19at 20:23; Admin Dose 100 MG; Start 01/27/19 at 10:00 Ferrous Sulfate (Feosol Liquid Cup) 300 mg BID NGT Last administered on 01/28/19at 20:23; Admin Dose 300 MG; Start 01/27/19 at 10:00 Valproate Sodium (Depakene Liquid Cup) 250 mg Q8 PO Last administered on 01/28/19at 21:48; Admin Dose 250 MG; Start 01/27/19 at 22:00 Hydromorphone HCl (Dilaudid) 0.2 mg PACU PRN IV MILD PAIN 1-3; Start 01/29/19 at 15:30; Stop 01/29/19 at 20:00 Hydromorphone HCl (Dilaudid) 0.4 mg PACU PRN IV MOD PAIN 4-6; Start 01/29/19 at 15:30; Stop 01/29/19 at 20:00 Fentanyl (Sublimaze) 25 mcg PACU ORDER PRN IV MILD PAIN 1-3; Start 01/29/19 at 15:30; Stop 01/29/19 at 20:00 Ondansetron HCl (Zofran Inj) 4 mg PACU ORDER PRN IV NAUSEA/VOMITING; Start 01/29/19 at 15:30; Stop 01/29/19 at 20:00 Metoclopramide HCl (Reglan) 10 mg PACU ORDER PRN IV NAUSEA/VOMITING; Start 01/29/19 at 15:30; Stop 01/29/19 at 20:00 Labetalol HCl (Labetalol) 5 mg PACU ORDER PRN IV HIGH BLOOD PRESSURE; Start 01/29/19 at 15:30; Stop 01/29/19 at 20:00 Hydralazine HCl (Apresoline) 5 mg PACU ORDER PRN IV HIGH BLOOD PRESSURE; Start 01/29/19 at 15:30; Stop 01/29/19 at 20:00 Ephedrine Sulfate 5 mg PACU ORDER PRN IV BLOOD PRESSURE SUPPORT; Start 01/29/19 at 15:30; Stop 01/29/19 at 20:00 Diphenhydramine HCl (Benadryl) 25 mg PACU ORDER PRN IV .PRURITUS; Start 01/29/19 at 15:30; Stop 01/29/19 at 20:00 IV Flush (NS 3 ml) 3 ml per protocol IV ; Start 01/29/19 at 15:30 Morphine Sulfate (morphine) 2 mg Q3H PRN IV PAIN; Start 01/29/19 at 16:00 Enoxaparin Sodium (Lovenox) 30 mg DAILY SC ; Start 01/30/19 at 09:00 Acetaminophen/ Hydrocodone Bitart ([place] (5/325)) 1 tab Q3H PRN PO MODERATE PAIN LEVEL 4-6; Start 01/29/19 at 16:00 Cefazolin Sodium 50 ml @ 100 mls/hr Q8H IVPB ; Start 01/29/19 at 20:00; Stop 01/30/19 at 12:29 JOSE RAUL ANDREWS MD Jan 29, 2019 17:15
--- NOTE | 2019-01-29 17:17 | CONS ---
Assessment/Plan Assessment/Plan Assessment/Plan (Daily) Assessment/Plan (Daily) 1 Left knee effusion,acuute oblique moderately displaced distal femur fracture 3. End-stage renal disease. 4. Hypertension. 5. Diabetes mellitus. 6. G-tube placement. 7. Atrial fibrillation. 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 9. History of multiple sepsis including pneumonia and fungal sepsis. 10. Anemia. 11. Blood transfusion. 12. Hyponatremia. 13. Malnutrition. 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 15. Hypoalbuminemia. Plan - cw HD MWF - orif TODAY - Avoid nephrotoxins - Renally dose all meds Consultation Date/Type/Reason Admit Date/Time Jan 26, 2019 at 17:14 Initial Consult Date Requesting Provider: DYLON WALLS MD Date/Time of Note DATE: 01/29/19 TIME: 17:15 24 HR Interval Summary Free Text/Dictation O.R.I.F of supracondylar fracture of Lt. femur Surgeon Exam/Review of Systems Exam Vitals Vital Signs Date Temp Pulse Resp B/P (MAP) Pulse Ox O2 O2 Flow FiO2 Time Delivery Rate 01/29/19 98.4 15:29 01/29/19 Simple 8.0 15:26 Mask 01/29/19 82 18 100/52 100 15:26 (68) Intake and Output 01/28/19 01/28/19 01/29/19 1515:00 23:00 07:00 IntakeIntake Total 260 ml OutputOutput Total 2600 ml BalanceBalance -2600 ml 260 ml Exam Lethargic permacath s/p ORIF Results Result Diagram: 01/29/19 1649 01/29/19 0442 Results 24hrs Laboratory Tests Test 01/28/19 20:27 01/29/19 04:42 01/29/19 04:43 01/29/19 08:12 Bedside Glucose 198 120 Prothrombin Time 12.6 Prothrombin Time 1.0 Ratio INR International 0.93 Normalized Ratio Activated 36.7 H Partial Thromboplast Time Sodium Level 141 Potassium Level 3.8 Chloride Level 100 Carbon Dioxide Level 33 H Anion Gap 8 Blood Urea Nitrogen 23 H Creatinine 1.22 H Est Glomerular Filtrat Rate mL/min Glucose Level 114 # Calcium Level 9.0 Phosphorus Level 1.6 L Magnesium Level 2.2 White Blood Count 9.9 # Red Blood Count 3.46 L Hemoglobin 9.1 L Hematocrit 29.2 L Mean Corpuscular 84.4 Volume Mean Corpuscular 26.3 L Hemoglobin Mean Corpuscular 31.2 L Hemoglobin Concent Red Cell 17.4 H Distribution Width Platelet Count 388 # Mean Platelet Volume 10.9 H Immature 1.100 H Granulocytes % Neutrophils % 77.4 H Lymphocytes % 10.2 L Monocytes % 8.9 Eosinophils % 2.1 Basophils % 0.3 Nucleated Red Blood 0.3 H Cells % Immature 0.110 H Granulocytes # Neutrophils # 7.7 H Lymphocytes # 1.0 Monocytes # 0.9 Eosinophils # 0.2 Basophils # 0.0 Nucleated Red Blood 0.0 Cells # Test 01/29/19 15:31 01/29/19 16:49 Bedside Glucose 194 Hemoglobin 9.7 L Hematocrit 32.1 L Medications Medication Current Medications IV Flush (NS 3 ml) 3 ml PER PROTOCOL IV ; Start 01/26/19 at 17:30 Ondansetron HCl (Zofran Inj) 4 mg Q6H PRN IV NAUSEA/VOMITING; Start 01/26/19 at 17:30 Acetaminophen (Tylenol Tab) 650 mg Q6H PRN PO .PAIN 1-3 OR TEMP; Start 01/26/19 at 17:30 Acetaminophen/ Hydrocodone Bitart ([place] (5/325)) 1 tab Q6H PRN PO .MOD PAIN 4- 6; Start 01/26/19 at 17:30 Morphine Sulfate (morphine) 2 mg Q4H PRN IV .SEVERE PAIN 7-10; Start 01/26/19 at 17:30 Magnesium Hydroxide (Milk Of Mag) 30 ml DAILY PRN PO .CONSTIPATION; Start 01/26/19 at 17:30 Heparin Sodium (Porcine) (Heparin (5000 Units/1ml)) 5,000 unit Q12 SC Last administered on 01/28/19at 20:25; Admin Dose 5,000 UNIT; Start 01/26/19 at 21:00 Acetaminophen (Tylenol Tab) 650 mg Q6H PRN GTB PAIN LEVEL 1-10/10; Start 01/26/19 at 17:30 Amlodipine Besylate (Norvasc) 5 mg BID GTB Last administered on 01/29/19at 09:27; Admin Dose 5 MG; Start 01/26/19 at 21:00 Docusate Sodium (Colace) 100 mg DAILY PO ; Start 01/27/19 at 09:00 Folic Acid (Folic Acid) 1 mg DAILY GTB Last administered on 01/28/19 09:55; Admin Dose 1 MG; Start 01/27/19 at 09:00 Hydralazine HCl (Apresoline) 25 mg Q8 PO Last administered on 01/28/19 21:48; Admin Dose 25 MG; Start 01/26/19 at 22:00 Insulin Aspart (Novolog Insulin Pen) 1 unit SLIDING SCALE AC SC ; Start 01/26/19 at 17:30 Linagliptin (Tradjenta) 5 mg DAILY GTB Last administered on 01/28/19 09:55; Admin Dose 5 MG; Start 01/27/19 at 09:00 Lorazepam (Ativan) 1 mg HS PRN GTB ANXIETY Last administered on 01/28/19 22:27; Admin Dose 1 MG; Start 01/26/19 at 17:30 Metoprolol Tartrate (Lopressor) 50 mg BID GTB Last administered on 01/29/19 09:27; Admin Dose 50 MG; Start 01/26/19 at 21:00 Polyethylene Glycol (Miralax) 17 gm Q24H GTB Last administered on 01/28/19 20:23; Admin Dose 17 GM; Start 01/26/19 at 17:30 Quetiapine Fumarate (Seroquel) 25 mg BID GTB Last administered on 01/28/19 20:23; Admin Dose 25 MG; Start 01/26/19 at 21:00 Senna (Senokot) 1 tab BID PO Last administered on 01/28/19 20:23; Admin Dose 1 TAB; Start 01/26/19 at 21:00 Lansoprazole (Prevacid) 30 mg DAILY@06 GTB Last administered on 01/28/19 05:11; Admin Dose 30 MG; Start 01/27/19 at 06:00 Heparin Sodium (Porcine) (Heparin (1000 Units/ml)) 4,000 unit AFTER DIALYSIS CATHETER Last administered on 01/28/19 18:37; Admin Dose 4,000 UNIT; Start 01/27/19 at 00:30 [facility]isc[facility] This patient lane... PRN PRN XX WOUND CARE; Start 01/27/19 at 04:30 Docusate Sodium (Colace Liquid Cup) 100 mg BID GTB Last administered on 01/28/19at 20:23; Admin Dose 100 MG; Start 01/27/19 at 10:00 Ferrous Sulfate (Feosol Liquid Cup) 300 mg BID NGT Last administered on 01/28/19at 20:23; Admin Dose 300 MG; Start 01/27/19 at 10:00 Valproate Sodium (Depakene Liquid Cup) 250 mg Q8 PO Last administered on 01/28/19at 21:48; Admin Dose 250 MG; Start 01/27/19 at 22:00 Hydromorphone HCl (Dilaudid) 0.2 mg PACU PRN IV MILD PAIN 1-3; Start 01/29/19 at 15:30; Stop 01/29/19 at 20:00 Hydromorphone HCl (Dilaudid) 0.4 mg PACU PRN IV MOD PAIN 4-6; Start 01/29/19 at 15:30; Stop 01/29/19 at 20:00 Fentanyl (Sublimaze) 25 mcg PACU ORDER PRN IV MILD PAIN 1-3; Start 01/29/19 at 15:30; Stop 01/29/19 at 20:00 Ondansetron HCl (Zofran Inj) 4 mg PACU ORDER PRN IV NAUSEA/VOMITING; Start 01/29/19 at 15:30; Stop 01/29/19 at 20:00 Metoclopramide HCl (Reglan) 10 mg PACU ORDER PRN IV NAUSEA/VOMITING; Start 01/29/19 at 15:30; Stop 01/29/19 at 20:00 Labetalol HCl (Labetalol) 5 mg PACU ORDER PRN IV HIGH BLOOD PRESSURE; Start 01/29/19 at 15:30; Stop 01/29/19 at 20:00 Hydralazine HCl (Apresoline) 5 mg PACU ORDER PRN IV HIGH BLOOD PRESSURE; Start 01/29/19 at 15:30; Stop 01/29/19 at 20:00 Ephedrine Sulfate 5 mg PACU ORDER PRN IV BLOOD PRESSURE SUPPORT; Start 01/29/19 at 15:30; Stop 01/29/19 at 20:00 Diphenhydramine HCl (Benadryl) 25 mg PACU ORDER PRN IV .PRURITUS; Start 01/29/19 at 15:30; Stop 01/29/19 at 20:00 IV Flush (NS 3 ml) 3 ml per protocol IV ; Start 01/29/19 at 15:30 Morphine Sulfate (morphine) 2 mg Q3H PRN IV PAIN; Start 01/29/19 at 16:00 Enoxaparin Sodium (Lovenox) 30 mg DAILY SC ; Start 01/30/19 at 09:00 Acetaminophen/ Hydrocodone Bitart ([place] (5/325)) 1 tab Q3H PRN PO MODERATE PAIN LEVEL 4-6; Start 01/29/19 at 16:00 Cefazolin Sodium 50 ml @ 100 mls/hr Q8H IVPB ; Start 01/29/19 at 20:00; Stop 01/30/19 at 12:29 JOSE RAUL ANDREWS MD Jan 29, 2019 17:17
[2019-01-29] MEDS: POLYETHYLENE GLYCOL 17 GM PACKET GTB SCH (17:18)
[2019-01-29] MEDS: CEFAZOLIN 1 GM/50 ML (PMX) 50 ML IVPB SCH (20:38)
[2019-01-29] MEDS: HYDROCODONE/APAP (5/325) TAB PO PRN (21:21)
[2019-01-30 02:00] VITALS: BP 154/67; PULSE 83; RESP 18
[2019-01-30] MEDS: LANSOPRAZOLE 30 MG CAP GTB SCH (06:03)
[2019-01-30] MEDS: VALPROIC ACID LIQUID CUP 250 MG/5 ML CUP PO SCH ×3 (06:03→22:13)
[2019-01-30] MEDS: HYDROCODONE/APAP (5/325) TAB PO PRN ×2 (06:06→22:13)
[2019-01-30] MEDS: CEFAZOLIN 1 GM/50 ML (PMX) 50 ML IVPB SCH ×2 (06:23→13:33)
[2019-01-30 08:04] VITALS: BP 105/52; PULSE 86; RESP 16
[2019-01-30] MEDS: ENOXAPARIN 30 MG/0.3 ML SYG SC SCH (09:00)
[2019-01-30] MEDS: DOCUSATE SODIUM 100 MG CAP PO SCH (09:00)
[2019-01-30] MEDS: FERROUS SULFATE 60 MG/ML 5ML CUP NGT SCH ×2 (09:21→20:43)
[2019-01-30] MEDS: FOLIC ACID 1 MG TAB GTB SCH (09:21)
[2019-01-30] MEDS: LINAGLIPTIN 5 MG TABLET GTB SCH (09:21)
[2019-01-30] MEDS: QUETIAPINE 25 MG TAB GTB SCH ×2 (09:21→20:43)
[2019-01-30] MEDS: SENNA TAB PO SCH ×2 (09:21→20:44)
[2019-01-30] MEDS: AMLODIPINE 5 MG TAB GTB SCH ×2 (09:23→20:43)
[2019-01-30] MEDS: METOPROLOL 50 MG TAB GTB SCH ×2 (09:23→20:44)
[2019-01-30] MEDS: HEPARIN 5,000 UNIT/1 ML VIAL SC SCH ×2 (09:24→20:46)
[2019-01-30] MEDS: BALSAM PERU/CASTOR OIL 60 GM TUBE TOP SCH ×2 (09:25→22:14)
[2019-01-30] MEDS: DOCUSATE SODIUM 10 MG/ML (10ML CUP) GTB SCH ×2 (09:32→20:43)
--- NOTE | 2019-01-30 15:53 | CONS ---
Assessment/Plan Assessment/Plan Assessment/Plan (Daily) Assessment/Plan (Daily) 1 Left knee effusion,acuute oblique moderately displaced distal femur fracture 3. End-stage renal disease. 4. Hypertension. 5. Diabetes mellitus. 6. G-tube placement. 7. Atrial fibrillation. 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 9. History of multiple sepsis including pneumonia and fungal sepsis. 10. Anemia. 11. Blood transfusion. 12. Hyponatremia. 13. Malnutrition. 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 15. Hypoalbuminemia. Plan - cw HD MWF - HD today - PER Primary 1 unit PRBC today - Avoid nephrotoxins - Renally dose all meds Consultation Date/Ty Consultation Date/Type/Reason Admit Date/Time Jan 26, 2019 at 17:14 Initial Consult Date Requesting Provider: DYLON WALLS MD Date/Time of Note DATE: 01/30/19 TIME: 15:51 24 HR Interval Summary Free Text/Dictation s/p ORIF Exam/Review of Systems Exam Vitals Vital Signs Date Temp Pulse Resp B/P (MAP) Pulse Ox O2 O2 Flow FiO2 Time Delivery Rate 01/30/19 98.3 86 16 105/52 97 08:04 (69) 01/29/19 Room Air 17:30 01/29/19 2.0 16:11 Intake and Output 01/29/19 01/29/19 01/30/19 1515:00 23:00 07:00 IntakeIntake Total 800 ml OutputOutput Total 50 ml BalanceBalance 750 ml Exam Awake and alert permacath G tube clear lungs s/p ORIF Results Results Result Diagram: 01/30/19 0533 01/30/19 0533 Results 24hrs Laboratory Tests Test 01/29/19 16:49 01/30/19 05:33 Hemoglobin 9.7 L 7.2 #L Hematocrit 32.1 L 23.4 #L Sodium Level 140 141 Potassium Level 4.5 4.3 Chloride Level 106 105 Carbon Dioxide Level 24 29 Anion Gap 10 7 Blood Urea Nitrogen 28 H 38 H Creatinine 1.52 H 1.90 H Est Glomerular Filtrat Rate mL/min Glucose Level 179 181 Calcium Level 8.2 L 8.5 White Blood Count 12.3 #H Red Blood Count 2.71 #L Mean Corpuscular Volume 86.3 Mean Corpuscular Hemoglobin 26.6 L Mean Corpuscular Hemoglobin Concent 30.8 L Red Cell Distribution Width 17.4 H Platelet Count 349 Mean Platelet Volume 11.2 H Immature Granulocytes % 0.900 H Neutrophils % 84.0 H Lymphocytes % 5.6 L Monocytes % 9.0 Eosinophils % 0.3 Basophils % 0.2 Nucleated Red Blood Cells % 0.3 H Immature Granulocytes # 0.110 H Neutrophils # 10.3 H Lymphocytes # 0.7 L Monocytes # 1.1 H Eosinophils # 0.0 Basophils # 0.0 Nucleated Red Blood Cells # 0.0 Phosphorus Level 2.5 Magnesium Level 2.3 Total Bilirubin 0.3 Direct Bilirubin 0.00 Indirect Bilirubin 0.3 Aspartate Amino Transf (AST/SGOT) 45 Alanine Aminotransferase (ALT/SGPT) 15 Alkaline Phosphatase 111 Total Protein 5.7 L Albumin 2.9 L Globulin 2.80 Albumin/Globulin Ratio 1.03 Medications Medication Current Medications IV Flush (NS 3 ml) 3 ml PER PROTOCOL IV ; Start 01/26/19 at 17:30 Ondansetron HCl (Zofran Inj) 4 mg Q6H PRN IV NAUSEA/VOMITING; Start 01/26/19 at 17:30 Acetaminophen (Tylenol Tab) 650 mg Q6H PRN PO .PAIN 1-3 OR TEMP; Start 01/26/19 at 17:30 Acetaminophen/ Hydrocodone Bitart ([place] (5/325)) 1 tab Q6H PRN PO .MOD PAIN 4- 6; Start 01/26/19 at 17:30 Morphine Sulfate (morphine) 2 mg Q4H PRN IV .SEVERE PAIN 7-10; Start 01/26/19 at 17:30 Magnesium Hydroxide (Milk Of Mag) 30 ml DAILY PRN PO .CONSTIPATION; Start 01/26/19 at 17:30 Heparin Sodium (Porcine) (Heparin (5000 Units/1ml)) 5,000 unit Q12 SC Last administered on 01/30/19at 09:24; Admin Dose 5,000 UNIT; Start 01/26/19 at 21:00 Acetaminophen (Tylenol Tab) 650 mg Q6H PRN GTB PAIN LEVEL 1-10/10; Start 01/26/19 at 17:30 Amlodipine Besylate (Norvasc) 5 mg BID GTB Last administered on 01/30/19at 09:23; Admin Dose 5 MG; Start 01/26/19 at 21:00 Docusate Sodium (Colace) 100 mg DAILY PO ; Start 01/27/19 at 09:00 Folic Acid (Folic Acid) 1 mg DAILY GTB Last administered on 01/30/19 09:21; Admin Dose 1 MG; Start 01/27/19 at 09:00 Hydralazine HCl (Apresoline) 25 mg Q8 PO Last administered on 01/30/19 13:33; Admin Dose 25 MG; Start 01/26/19 at 22:00 Insulin Aspart (Novolog Insulin Pen) 1 unit SLIDING SCALE AC SC ; Start 01/26/19 at 17:30 Linagliptin (Tradjenta) 5 mg DAILY GTB Last administered on 01/30/19 09:21; Admin Dose 5 MG; Start 01/27/19 at 09:00 Lorazepam (Ativan) 1 mg HS PRN GTB ANXIETY Last administered on 01/28/19 22:27; Admin Dose 1 MG; Start 01/26/19 at 17:30 Metoprolol Tartrate (Lopressor) 50 mg BID GTB Last administered on 01/30/19 09:23; Admin Dose 50 MG; Start 01/26/19 at 21:00 Polyethylene Glycol (Miralax) 17 gm Q24H GTB Last administered on 01/28/19 20:23; Admin Dose 17 GM; Start 01/26/19 at 17:30 Quetiapine Fumarate (Seroquel) 25 mg BID GTB Last administered on 01/30/19 09: 21; Admin Dose 25 MG; Start 01/26/19 at 21:00 Senna (Senokot) 1 tab BID PO Last administered on 01/30/19 09:21; Admin Dose 1 TAB; Start 01/26/19 at 21:00 Lansoprazole (Prevacid) 30 mg DAILY@06 GTB Last administered on 01/30/19 06:03; Admin Dose 30 MG; Start 01/27/19 at 06:00 Heparin Sodium (Porcine) (Heparin (1000 Units/ml)) 4,000 unit AFTER DIALYSIS CATHETER Last administered on 01/28/19 18:37; Admin Dose 4,000 UNIT; Start 01/27/19 at 00:30 Miscellaneous Information (Pending [facility] Order For Wound Care) This patient lane... PRN PRN XX WOUND CARE; Start 01/27/19 at 04:30 Docusate Sodium (Colace Liquid Cup) 100 mg BID GTB Last administered on 01/30/19at 09:32; Admin Dose 100 MG; Start 01/27/19 at 10:00 Ferrous Sulfate (Feosol Liquid Cup) 300 mg BID NGT Last administered on 01/30/19at 09:21; Admin Dose 300 MG; Start 01/27/19 at 10:00 Valproate Sodium (Depakene Liquid Cup) 250 mg Q8 PO Last administered on 01/30/19at 13:28; Admin Dose 250 MG; Start 01/27/19 at 22:00 IV Flush (NS 3 ml) 3 ml per protocol IV ; Start 01/29/19 at 15:30 Morphine Sulfate (morphine) 2 mg Q3H PRN IV PAIN; Start 01/29/19 at 16:00 Enoxaparin Sodium (Lovenox) 30 mg DAILY SC ; Start 01/30/19 at 09:00 Acetaminophen/ Hydrocodone Bitart ([place] (5/325)) 1 tab Q3H PRN PO MODERATE PAIN LEVEL 4-6 Last administered on 01/30/19at 06:06; Admin Dose 1 TAB; Start 01/29/19 at 16:00 JOSE RAUL ANDREWS MD Jan 30, 2019 15:53
--- NOTE | 2019-01-30 16:00 | PN ---
DATE: 01/30/2019 SUBJECTIVE: The patient was seen status postop day #1 ORIF utilizing cable system of the left femur subcondylar fracture. The patient tolerated procedure well. Of note is a drop in hemoglobin today f rom 9.7 to 7.2. PHYSICAL EXAMINATION: VITAL SIGNS: Temperature 98.3, pulse 86, respirations 16, blood pressure 105/52, saturation 97%. GENERAL: The patient is in no acute distress. HEENT: Normocephalic, atraumatic, pale. CARDIOVASCULAR: S1 and S2. Regular rate. LUNGS: Clear. ABDOMEN: Soft. G-tube in place. EXTREMITIES: No clubbing, cyanosis or edema. Left lower extremity in a special long brace. LABORATORY DATA: White count increased to 12.2, hemoglobin 7.2, hematocrit 23, platelet count of 249 with neutrophils 84%, lymphs 6%. Chemistry: Sodium 141, potassium 4.3, chloride 105, bicarb 29, BU N 38, creatinine 1.9, glucose of 181. DIAGNOSTIC DATA: Femur x-ray post-surgery shows interval placement of cerclage wires stabilizing com minuted distal femoral diaphysis fracture with improved alignment. ____ is again seen stabilized in the femoral head neck, proximal left femur. MEDICATIONS: Include: 1. Lovenox 30 mg subcutaneous daily. 2. Morphine as directed. 3. [place] as directed. 4. Depakote as directed. 5. Colace 100 mg b.i.d. 6. Ferrous sulfate 325 b.i.d. 7. Colace 100 daily. 8. Folic acid 1 mg daily. 9. Tradjenta 5 mg daily. 10. ____ as directed. 11. Heparin after dialysis. 12. Hydralazine 25 q.8. 13. Heparin 5000 q.12. 14. Norvasc 5 mg b.i.d. 15. Lopressor 50 b.i.d. 16. Seroquel 25 mg b.i.d. 17. Senna b.i.d. 18. Zofran. 19. Tylenol. 20. Morphine. 21. Milk of Magnesia. 22. Aspart insulin. 23. Ativan. 24. MiraLax as directed. ASSESSMENT AND PLAN: This is an 83-year-old Bangl[place] female, very ill, with multiple medical issues including diabetes mellitus, end-stage renal disease, dementia, chronic kidney disease, malnutrition, dysphagia, G-tube feeding, anemia, aspiration pneumonia, history of bacteremia, fungemia, who is sta tus post questionable fall, was found to have a distal left femur fracture on top of previous surgery this site. 1. Respiratory: Continue aspiration precautions and O2 support. 2. Cardiovascular: Continue deep venous thrombosis prophylaxis. 3. Postop anemia due to blood loss. We will transfuse the patient 1 unit of PRBC and monitor hemogl obin and hematocrit. Continue Epogen as well. 4. Malfunctioning G-tube. New G-tube is in place. 5. Dysphagia. Continue G-tube feeding. 6. Diabetes mellitus. Start the patient on low dose Levemir. Continue Tradjenta. 7. Psychiatric disorder. Restraints p.r.n. Close monitoring. 8. Case was discussed with daughter. 9. Worsening leukocytosis, likely reactive in nature post-surgery. We will continue to monitor teo ent closely. 10. End-stage renal disease, dialysis per nephrology. We will follow. Dictated By: DYLON HULL/MADAN Conf#: [id number] DID#: [id number] CC: CESARIO RIVERA MD;*EndCC*
--- NOTE | 2019-01-30 16:29 | RADRPT ---
Vent Rate: 83 bpm RR Interval: 720 msec DC Interval: 183 msec QRS Duration: 82 msec QT Interval: 431 msec QTC Interval: 508 msec P-R-T [place]: 67 - 72 - -87 degrees Sinus rhythm...normal P axis, V-rate 50- 99 Probable anterior infarct, age indeterminate...Q >35mS, T neg, V2-V5 Prolonged QT interval...QTc >500mS Electronically Signed By: Iker Dalals
--- NOTE | 2019-01-30 16:38 | CONS ---
Assessment/Plan Assessment/Plan Hospital Course (Demo Recall) Cardiovascular preop evaluation Femoral fracture status post fall status post surgery History of paroxysmal atrial fibrillation, currently sinus rhythm Renal failure on dialysis Hypertension Dementia Anemia -Patient status post surgery -Currently in sinus rhythm -Continue beta-farrah as tolerated -Fluid management via hemodialysis as per nephrology -Dr. Stevens to resume care 01/31/2019 Consultation Date/Type/Reason Admit Date/Time Jan 26, 2019 at 17:14 Initial Consult Date 01/28/19 Type of Consult Cardiology Requesting Provider: DYLON WALLS MD Date/Time of Note DATE: 01/30/19 TIME: 16:35 24 HR Interval Summary Free Text/Dictation Patient seen and examined. Sleeping Exam/Review of Systems Vital Signs Vitals Vital Signs Date Temp Pulse Resp B/P (MAP) Pulse Ox O2 O2 Flow FiO2 Time Delivery Rate 01/30/19 98.3 86 16 105/52 97 08:04 (69) 01/29/19 Room Air 17:30 01/29/19 2.0 16:11 Intake and Output 01/29/19 01/29/19 01/30/19 1515:00 23:00 07:00 IntakeIntake Total 800 ml OutputOutput Total 50 ml BalanceBalance 750 ml Exam Exam Sleeping, frail, no apparent distress Head: normocephalic Respiratory: other (Coarse breath sounds bilaterally, no wheezing) Cardiovascular: regular rate and rhythm, systolic murmur (S1-S2 heard) Gastrointestinal: soft, non-tender, bowel sounds Extremities: other (No significant edema) Additional Comments Dialysis catheter chest wall Labs Result Diagram: 01/30/19 0533 01/30/19 0533 Results 24hrs Laboratory Tests Test 01/29/19 16:49 01/30/19 05:33 Hemoglobin 9.7 L 7.2 #L Hematocrit 32.1 L 23.4 #L Sodium Level 140 141 Potassium Level 4.5 4.3 Chloride Level 106 105 Carbon Dioxide Level 24 29 Anion Gap 10 7 Blood Urea Nitrogen 28 H 38 H Creatinine 1.52 H 1.90 H Est Glomerular Filtrat Rate mL/min Glucose Level 179 181 Calcium Level 8.2 L 8.5 White Blood Count 12.3 #H Red Blood Count 2.71 #L Mean Corpuscular Volume 86.3 Mean Corpuscular Hemoglobin 26.6 L Mean Corpuscular Hemoglobin Concent 30.8 L Red Cell Distribution Width 17.4 H Platelet Count 349 Mean Platelet Volume 11.2 H Immature Granulocytes % 0.900 H Neutrophils % 84.0 H Lymphocytes % 5.6 L Monocytes % 9.0 Eosinophils % 0.3 Basophils % 0.2 Nucleated Red Blood Cells % 0.3 H Immature Granulocytes # 0.110 H Neutrophils # 10.3 H Lymphocytes # 0.7 L Monocytes # 1.1 H Eosinophils # 0.0 Basophils # 0.0 Nucleated Red Blood Cells # 0.0 Phosphorus Level 2.5 Magnesium Level 2.3 Total Bilirubin 0.3 Direct Bilirubin 0.00 Indirect Bilirubin 0.3 Aspartate Amino Transf (AST/SGOT) 45 Alanine Aminotransferase (ALT/SGPT) 15 Alkaline Phosphatase 111 Total Protein 5.7 L Albumin 2.9 L Globulin 2.80 Albumin/Globulin Ratio 1.03 Medications Medications Current Medications IV Flush (NS 3 ml) 3 ml PER PROTOCOL IV ; Start 01/26/19 at 17:30 Ondansetron HCl (Zofran Inj) 4 mg Q6H PRN IV NAUSEA/VOMITING; Start 01/26/19 at 17:30 Acetaminophen (Tylenol Tab) 650 mg Q6H PRN PO .PAIN 1-3 OR TEMP; Start 01/26/19 at 17:30 Acetaminophen/ Hydrocodone Bitart ([place] (5/325)) 1 tab Q6H PRN PO .MOD PAIN 4- 6; Start 01/26/19 at 17:30 Morphine Sulfate (morphine) 2 mg Q4H PRN IV .SEVERE PAIN 7-10; Start 01/26/19 at 17:30 Magnesium Hydroxide (Milk Of Mag) 30 ml DAILY PRN PO .CONSTIPATION; Start 01/26/19 at 17:30 Heparin Sodium (Porcine) (Heparin (5000 Units/1ml)) 5,000 unit Q12 SC Last administered on 01/30/19at 09:24; Admin Dose 5,000 UNIT; Start 01/26/19 at 21:00 Acetaminophen (Tylenol Tab) 650 mg Q6H PRN GTB PAIN LEVEL 1-10/10; Start 01/26/19 at 17:30 Amlodipine Besylate (Norvasc) 5 mg BID GTB Last administered on 01/30/19at 09:23; Admin Dose 5 MG; Start 01/26/19 at 21:00 Docusate Sodium (Colace) 100 mg DAILY PO ; Start 01/27/19 at 09:00 Folic Acid (Folic Acid) 1 mg DAILY GTB Last administered on 01/30/19 09:21; Admin Dose 1 MG; Start 01/27/19 at 09:00 Hydralazine HCl (Apresoline) 25 mg Q8 PO Last administered on 01/30/19 13:33; Admin Dose 25 MG; Start 01/26/19 at 22:00 Insulin Aspart (Novolog Insulin Pen) 1 unit SLIDING SCALE AC SC ; Start 01/26/19 at 17:30 Linagliptin (Tradjenta) 5 mg DAILY GTB Last administered on 01/30/19 09:21; Admin Dose 5 MG; Start 01/27/19 at 09:00 Lorazepam (Ativan) 1 mg HS PRN GTB ANXIETY Last administered on 01/28/19 22:27; Admin Dose 1 MG; Start 01/26/19 at 17:30 Metoprolol Tartrate (Lopressor) 50 mg BID GTB Last administered on 01/30/19 09:23; Admin Dose 50 MG; Start 01/26/19 at 21:00 Polyethylene Glycol (Miralax) 17 gm Q24H GTB Last administered on 01/28/19 20:23; Admin Dose 17 GM; Start 01/26/19 at 17:30 Quetiapine Fumarate (Seroquel) 25 mg BID GTB Last administered on 01/30/19 09:21; Admin Dose 25 MG; Start 01/26/19 at 21:00 Senna (Senokot) 1 tab BID PO Last administered on 01/30/19 09:21; Admin Dose 1 TAB; Start 01/26/19 at 21:00 Lansoprazole (Prevacid) 30 mg DAILY@06 GTB Last administered on 01/30/19 06:03; Admin Dose 30 MG; Start 01/27/19 at 06:00 Heparin Sodium (Porcine) (Heparin (1000 Units/ml)) 4,000 unit AFTER DIALYSIS CATHETER Last administered on 01/28/19 18:37; Admin Dose 4,000 UNIT; Start 01/27/19 at 00:30 Miscellaneous Information (Pending [facility] Order For Wound Care) This patient lane... PRN PRN XX WOUND CARE; Start 01/27/19 at 04:30 Docusate Sodium (Colace Liquid Cup) 100 mg BID GTB Last administered on 01/30/19at 09:32; Admin Dose 100 MG; Start 01/27/19 at 10:00 Ferrous Sulfate (Feosol Liquid Cup) 300 mg BID NGT Last administered on 01/30/19 09:21; Admin Dose 300 MG; Start 01/27/19 at 10:00 Valproate Sodium (Depakene Liquid Cup) 250 mg Q8 PO Last administered on 01/30/19at 13:28; Admin Dose 250 MG; Start 01/27/19 at 22:00 IV Flush (NS 3 ml) 3 ml per protocol IV ; Start 01/29/19 at 15:30 Morphine Sulfate (morphine) 2 mg Q3H PRN IV PAIN; Start 01/29/19 at 16:00 Enoxaparin Sodium (Lovenox) 30 mg DAILY SC ; Start 01/30/19 at 09:00 Acetaminophen/ Hydrocodone Bitart ([place] (5/325)) 1 tab Q3H PRN PO MODERATE PAIN LEVEL 4-6 Last administered on 01/30/19at 06:06; Admin Dose 1 TAB; Start 01/29/19 at 16:00 Iker [place] DO Jan 30, 2019 16:38
[2019-01-30] MEDS: POLYETHYLENE GLYCOL 17 GM PACKET GTB SCH (18:07)
[2019-01-30 20:00] VITALS: BP 136/60; PULSE 103; RESP 18
[2019-01-31] VITALS (11 sets, daily range): BP systolic 81–137; BP diastolic 43–62; PULSE 95–122; RESP 16–20
[2019-01-31] MEDS: HYDROCODONE/APAP (5/325) TAB PO PRN ×3 (04:20→21:07)
[2019-01-31] MEDS: VALPROIC ACID LIQUID CUP 250 MG/5 ML CUP PO SCH ×3 (06:06→22:08)
[2019-01-31] MEDS: LANSOPRAZOLE 30 MG CAP GTB SCH (06:06)
--- NOTE | 2019-01-31 07:51 | CONS ---
Assessment/Plan Assessment/Plan Hospital Course (Demo Recall) 83 yo female Interval hx: Tolerating tube feeds at 30cc. Denies abdominal pain or nausea. Last bm 01/29 1. Malfunctioning gastrostomy tube. G-tube was changed to 18 Pashto and its position verified with the Gastrografin study 2. Supracondylar fracture of the left femur. 3. Dementia. 4. Diabetes mellitus. 5. Cachexia. 6. End-stage renal disease, on dialysis. 7. Diastolic heart failure. Plan Continue feeding through the G-tube. Pain management Pt examined and plan of care discussed with Dr. Baird Consultation Date/Type/Reason Admit Date/Time Jan 26, 2019 at 17:14 Initial Consult Date 01/28/19 Requesting Provider: DYLON WALLS MD Date/Time of Note DATE: 01/31/19 TIME: 07:50 Exam/Review of Systems Exam Vitals Vital Signs Date Temp Pulse Resp B/P (MAP) Pulse Ox O2 O2 Flow FiO2 Time Delivery Rate 01/31/19 98.5 100 16 127/60 99 07:24 (82) 01/29/19 Room Air 17:30 01/29/19 2.0 16:11 Intake and Output 01/30/19 01/30/19 01/31/19 1515:00 23:00 07:00 IntakeIntake Total 50 ml 200 ml 120 ml BalanceBalance 50 ml 200 ml 120 ml Results Result Diagram: 01/31/19 0540 01/31/19 0540 Results 24hrs Laboratory Tests Test 01/31/19 05:40 White Blood Count 16.5 #H Red Blood Count 2.48 L Hemoglobin 7.0 L Hematocrit 21.3 L Mean Corpuscular Volume 85.9 Mean Corpuscular Hemoglobin 28.2 L Mean Corpuscular Hemoglobin Concent 32.9 Red Cell Distribution Width 16.3 H Platelet Count 264 # Mean Platelet Volume 11.7 H Immature Granulocytes % 1.200 H Neutrophils % Segmented Neutrophils % (Manual) 87 H Band Neutrophils % (Manual) 3 Lymphocytes % Lymphocytes % (Manual) 3 L Monocytes % Monocytes % (Manual) 4 Eosinophils % Eosinophils % (Manual) 2 Basophils % Basophils % (Manual) 1 Nucleated Red Blood Cells % 1 H Immature Granulocytes # 0.190 H Neutrophils # Neutrophils # (Manual) 14.4 H Band Neutrophils # 0.4 Lymphocytes (Manual) 0.4 L Lymphocytes # Monocytes # Monocytes # (Manual) 0.6 Eosinophils # Basophils # Basophils # (Manual) 0.1 H Nucleated Red Blood Cells # Platelet Estimate NORMAL Polychromasia 1+ Poikilocytosis 1+ Anisocytosis 1+ Microcytosis 1+ Macrocytosis 1+ Ovalocytes 1+ Sodium Level 139 Potassium Level 3.9 Chloride Level 104 Carbon Dioxide Level 26 Anion Gap 9 Blood Urea Nitrogen 54 H Creatinine 2.32 H Est Glomerular Filtrat Rate mL/min Glucose Level 189 Calcium Level 8.1 L Phosphorus Level 2.4 L Magnesium Level 2.4 Medications Medication Current Medications IV Flush (NS 3 ml) 3 ml PER PROTOCOL IV Last administered on 01/30/19at 23:54; Admin Dose 3 ML; Start 01/26/19 at 17:30 Ondansetron HCl (Zofran Inj) 4 mg Q6H PRN IV NAUSEA/VOMITING; Start 01/26/19 at 17:30 Acetaminophen (Tylenol Tab) 650 mg Q6H PRN PO .PAIN 1-3 OR TEMP; Start 01/26/19 at 17:30 Acetaminophen/ Hydrocodone Bitart ([place] (5/325)) 1 tab Q6H PRN PO .MOD PAIN 4- 6; Start 01/26/19 at 17:30 Morphine Sulfate (morphine) 2 mg Q4H PRN IV .SEVERE PAIN 7-10; Start 01/26/19 at 17:30 Magnesium Hydroxide (Milk Of Mag) 30 ml DAILY PRN PO .CONSTIPATION; Start 01/26/19 at 17:30 Heparin Sodium (Porcine) (Heparin (5000 Units/1ml)) 5,000 unit Q12 SC Last administered on 01/30/19at 20:46; Admin Dose 5,000 UNIT; Start 01/26/19 at 21:00 Acetaminophen (Tylenol Tab) 650 mg Q6H PRN GTB PAIN LEVEL 1-10/10; Start 01/26/19 at 17:30 Amlodipine Besylate (Norvasc) 5 mg BID GTB Last administered on 01/30/19at 20:43; Admin Dose 5 MG; Start 01/26/19 at 21:00 Docusate Sodium (Colace) 100 mg DAILY PO ; Start 01/27/19 at 09:00 Folic Acid (Folic Acid) 1 mg DAILY GTB Last administered on 3/24/19at 09:21; Admin Dose 1 MG; Start 01/27/19 at 09:00 Hydralazine HCl (Apresoline) 25 mg Q8 PO Last administered on 01/31/19 06:08; Admin Dose 25 MG; Start 01/26/19 at 22:00 Insulin Aspart (Novolog Insulin Pen) 1 unit SLIDING SCALE AC SC ; Start 01/26/19 at 17:30 Linagliptin (Tradjenta) 5 mg DAILY GTB Last administered on 01/30/19 09:21; Admin Dose 5 MG; Start 01/27/19 at 09:00 Lorazepam (Ativan) 1 mg HS PRN GTB ANXIETY Last administered on 01/28/19 22:27; Admin Dose 1 MG; Start 01/26/19 at 17:30 Metoprolol Tartrate (Lopressor) 50 mg BID GTB Last administered on 01/30/19 20:44; Admin Dose 50 MG; Start 01/26/19 at 21:00 Polyethylene Glycol (Miralax) 17 gm Q24H GTB Last administered on 01/30/19 18:07; Admin Dose 17 GM; Start 01/26/19 at 17:30 Quetiapine Fumarate (Seroquel) 25 mg BID GTB Last administered on 01/30/19 20:43; Admin Dose 25 MG; Start 01/26/19 at 21:00 Senna (Senokot) 1 tab BID PO Last administered on 01/30/19 20:44; Admin Dose 1 TAB; Start 01/26/19 at 21:00 Lansoprazole (Prevacid) 30 mg DAILY@06 GTB Last administered on 01/31/19 0 6:06; Admin Dose 30 MG; Start 01/27/19 at 06:00 Heparin Sodium (Porcine) (Heparin (1000 Units/ml)) 4,000 unit AFTER DIALYSIS CATHETER Last administered on 01/28/19 18:37; Admin Dose 4,000 UNIT; Start 01/27/19 at 00:30 [facility] This patient lane ... PRN PRN XX WOUND CARE; Start 01/27/19 at 04:30 Docusate Sodium (Colace Liquid Cup) 100 mg BID GTB Last administered on 01/30/19 20:43; Admin Dose 100 MG; Start 01/27/19 at 10:00 Ferrous Sulfate (Feosol Liquid Cup) 300 mg BID NGT Last administered on 01/30/19at 20:43; Admin Dose 300 MG; Start 01/27/19 at 10:00 Valproate Sodium (Depakene Liquid Cup) 250 mg Q8 PO Last administered on 01/31/19at 06:06; Admin Dose 250 MG; Start 01/27/19 at 22:00 IV Flush (NS 3 ml) 3 ml per protocol IV ; Start 01/29/19 at 15:30 Morphine Sulfate (morphine) 2 mg Q3H PRN IV PAIN; Start 01/29/19 at 16:00 Enoxaparin Sodium (Lovenox) 30 mg DAILY SC ; Start 01/30/19 at 09:00 Acetaminophen/ Hydrocodone Bitart ([place] (5/325)) 1 tab Q3H PRN PO MODERATE PAIN LEVEL 4-6 Last administered on 01/31/19at 04:20; Admin Dose 1 TAB; Start 01/29/19 at 16:00 TONY VENCES Jan 31, 2019 07:51
[2019-01-31] MEDS: HEPARIN 5,000 UNIT/1 ML VIAL SC SCH ×2 (08:14→21:00)
[2019-01-31] MEDS: ENOXAPARIN 30 MG/0.3 ML SYG SC SCH (08:14)
[2019-01-31] MEDS: METOPROLOL 50 MG TAB GTB SCH ×2 (08:16→20:59)
[2019-01-31] MEDS: DOCUSATE SODIUM 10 MG/ML (10ML CUP) GTB SCH ×2 (08:17→20:58)
[2019-01-31] MEDS: LINAGLIPTIN 5 MG TABLET GTB SCH (08:17)
[2019-01-31] MEDS: FOLIC ACID 1 MG TAB GTB SCH (08:17)
[2019-01-31] MEDS: FERROUS SULFATE 60 MG/ML 5ML CUP NGT SCH ×2 (08:17→20:58)
[2019-01-31] MEDS: BALSAM PERU/CASTOR OIL 60 GM TUBE TOP SCH ×2 (08:18→21:11)
[2019-01-31] MEDS: QUETIAPINE 25 MG TAB GTB SCH ×2 (08:18→20:58)
[2019-01-31] MEDS: DOCUSATE SODIUM 100 MG CAP PO SCH (08:18)
[2019-01-31] MEDS: SENNA TAB PO SCH ×2 (08:18→20:58)
[2019-01-31] MEDS: AMLODIPINE 5 MG TAB GTB SCH ×2 (09:00→20:59)
[2019-01-31] MEDS ORDERED: ALBUMIN HUMAN 25% 100 ML IV ONE (10:00)
[2019-01-31] MEDS ORDERED: VANCOMYCIN IV PER PHARMACY XX SCH (10:30)
[2019-01-31] MEDS ORDERED: VANCOMYCIN 1 GM 250 ML IVPB SCH (12:00)
[2019-01-31] MEDS: MEROPENEM 500MG/50 ML (PMX) 50 ML IVPB SCH (12:41)
--- NOTE | 2019-01-31 13:44 | CONS ---
DATE OF ADMISSION: 01/26/2019 DATE OF CONSULTATION: 01/31/2019 TYPE OF CONSULTATION: Infectious disease. REASON FOR CONSULTATION: Antibiotic management. HISTORY OF PRESENT ILLNESS: Zahira White is an 83-year-old female patient of Dr. Kemar Walls who com es in with left distal femoral fracture. She is an 83-year-old [place], has been hospitalized over the past few months, almost continuously in various different hospitals. She has: 1. End-stage renal disease on hemodialysis. 2. Diastolic dysfunction heart failure. 3. Diabetes mellitus. 4. Hypertension. 5. Vascular dementia. 6. Anxiety disorder. 7. Arrhythmia. 8. Chronic obstructive pulmonary disease. 9. Dysphagia. 10. Status post G-tube feeding. 11. Moderate to severe calorie protein malnutrition. She was recently admitted to [facility] with anemia, transfused with good results. She lane d a non-STEMI treated conservatively. She may have fallen while at the custodial facility and she has a left distal femoral fracture. In the ER, she underwent laboratory work. Hemoglobin 8.7. BUN and creatinine 61/2.17. She showed some acute oblique moderately displaced distal femoral fractu re. A CT scan was done. She is somewhat contractured. There is swelling of the left knee. Dr. Miranda saw the patient. Her past surgical history includes status post hip replacement surgery due to hip fracture, section and G-tube placement. The patient was seen by Dr. Juan Miranda. She underwent open reduction internal fixation using Accord cable system. She was seen by Dr. Natarajan for nephrolog y. On the her white count was 12.2, H and H of 7.2 and 23, platelet count 249,000 with 84% poly s, 6% lymphs. BUN and creatinine 38/1.9. On the , today, she was seen by tolerating t ube feedings well, malfunctioning G-tube. G-tube was changed to 18-Turkish and it's position verified with Gastrografin study. The patient has dementia, diabetes, cachexia, end-stage renal disease, cur rently on vancomycin and meropenem. Chest x-ray shows cardiomegaly with mild hilar vascular congesti on, chronic and senescent changes in the chest, left side tunneled dialysis catheter in place. PAST MEDICAL HISTORY: As outlined. FAMILY HISTORY: Noncontributory. SOCIAL HISTORY: She does not smoke, drink or abuse drugs. ALLERGIES: None to penicillin, sulfa or foods. MEDICATIONS: Per chart. REVIEW OF SYSTEMS: As per HPI. PHYSICAL EXAMINATION: GENERAL: The patient is an elderly appearing female who is cachectic, in no acute distress. VITAL SIGNS: Stable. She is afebrile. SKIN: Without generalized rash. HEENT: Within normal limits. NECK: Supple. LYMPH NODES: None palpable. CHEST: Decreased breath sounds at the bases. HEART: Without murmur or gallop. ABDOMEN: Soft, nontender. G-tube in place. An 18-Turkish is in position. EXTREMITIES: Without cyanosis, clubbing, or edema. RECTAL AND GENITAL: Deferred. NEUROLOGIC: The patient is demented. She is currently on broad-spectrum antibiotics in the form of vancomycin and meropenem. We may want to cut back on this regimen when she is clinically stable. I will dictate my findings to Dr. Walls and to Dr. Juan Miranda and Dr. Natarajan. Dictated By: EDIE CHANG MD, JD/NTS Conf#: [id number] DID#: [id number] CC: KEMAR WALLS MD;*EndCC*
--- NOTE | 2019-01-31 13:54 | CONS ---
Assessment/Plan Assessment/Plan Assessment/Plan (Daily) Left knee effusion,acuute oblique moderately displaced distal femur fracture s/p ORIF 3. End-stage renal disease. 4. Hypertension. 5. Diabetes mellitus. 6. G-tube placement. 7. Atrial fibrillation. 8. History of POWDER MIXER bleed in the past. 9. History of multiple sepsis including pneumonia and fungal sepsis. 10. Anemia. 11. Blood transfusion. 12. Hyponatremia. 13. Malnutrition. 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 15. Hypoalbuminemia. 16 Acute blood loss anemia 17 Leukocytosis Plan - cw HD MWF, HD on hold today due to hypotension -Hypotension likely secondary to severe anemia/rising leukocytosis worried about sepsis -Hold BP medicines -Give albumin -1 unit of blood -ortho to evaluate surgical site -ID consult - Avoid nephrotoxins - Renally dose all meds Consultation Date/Type/Reason Admit Date/Time Jan 26, 2019 at 17:14 Initial Consult Date Requesting Provider: DYLON WALLS MD Date/Time of Note DATE: 01/31/19 TIME: 13:52 24 HR Interval Summary Free Text/Dictation Is hypotensive to systolic of 90s then to 80s HD was not started Exam/Review of Systems Exam Vitals Vital Signs Date Temp Pulse Resp B/P (MAP) Pulse Ox O2 O2 Flow FiO2 Time Delivery Rate 01/31/19 98.5 100 16 127/60 99 07:24 (82) 01/29/19 Room Air 17:30 01/29/19 2.0 16:11 Intake and Output 01/30/19 01/30/19 01/31/19 1515:00 23:00 07:00 IntakeIntake Total 50 ml 200 ml 120 ml BalanceBalance 50 ml 200 ml 120 ml Exam Exam Awake and alert permacath G tube clear lungs s/p ORIF surgical site seen with no active oozing Results Result Diagram: 01/31/19 0540 01/31/19 0540 Results 24hrs Laboratory Tests Test 01/31/19 05:40 01/31/19 08:04 01/31/19 10:30 White Blood Count 16.5 #H Red Blood Count 2.48 L Hemoglobin 7.0 L Hematocrit 21.3 L Mean Corpuscular Volume 85.9 Mean Corpuscular Hemoglobin 28.2 L Mean Corpuscular Hemoglobin Concent 32.9 Red Cell Distribution Width 16.3 H Platelet Count 264 # Mean Platelet Volume 11.7 H Immature Granulocytes % 1.200 H Neutrophils % Segmented Neutrophils % (Manual) 87 H Band Neutrophils % (Manual) 3 Lymphocytes % Lymphocytes % (Manual) 3 L Monocytes % Monocytes % (Manual) 4 Eosinophils % Eosinophils % (Manual) 2 Basophils % Basophils % (Manual) 1 Nucleated Red Blood Cells % 1 H Immature Granulocytes # 0.190 H Neutrophils # Neutrophils # (Manual) 14.4 H Band Neutrophils # 0.4 Lymphocytes (Manual) 0.4 L Lymphocytes # Monocytes # Monocytes # (Manual) 0.6 Eosinophils # Basophils # Basophils # (Manual) 0.1 H Nucleated Red Blood Cells # Platelet Estimate NORMAL Polychromasia 1+ Poikilocytosis 1+ Anisocytosis 1+ Microcytosis 1+ Macrocytosis 1+ Ovalocytes 1+ Sodium Level 139 Potassium Level 3.9 Chloride Level 104 Carbon Dioxide Level 26 Anion Gap 9 Blood Urea Nitrogen 54 H Creatinine 2.32 H Est Glomerular Filtrat Rate mL/min Glucose Level 189 Calcium Level 8.1 L Phosphorus Level 2.4 L Magnesium Level 2.4 Bedside Glucose 230 H Lactic Acid Level 1.8 Medications Medication Current Medications IV Flush (NS 3 ml) 3 ml PER PROTOCOL IV Last administered on 01/30/19at 23:54; Admin Dose 3 ML; Start 01/26/19 at 17:30 Ondansetron HCl (Zofran Inj) 4 mg Q6H PRN IV NAUSEA/VOMITING; Start 01/26/19 at 17:30 Acetaminophen (Tylenol Tab) 650 mg Q6H PRN PO .PAIN 1-3 OR TEMP; Start 01/26/19 at 17:30 Acetaminophen/ Hydrocodone Bitart ([place] (5/325)) 1 tab Q6H PRN PO .MOD PAIN 4- 6; Start 01/26/19 at 17:30 Morphine Sulfate (morphine) 2 mg Q4H PRN IV .SEVERE PAIN 7-10; Start 01/26/19 at 17:30 Magnesium Hydroxide (Milk Of Mag) 30 ml DAILY PRN PO .CONSTIPATION; Start 01/26/19 at 17:30 Heparin Sodium (Porcine) (Heparin (5000 Units/1ml)) 5,000 unit Q12 SC Last a dministered on 01/30/19at 20:46; Admin Dose 5,000 UNIT; Start 01/26/19 at 21:00 Acetaminophen (Tylenol Tab) 650 mg Q6H PRN GTB PAIN LEVEL 1-10/10; Start 01/26/19 at 17:30 Amlodipine Besylate (Norvasc) 5 mg BID GTB Last administered on 01/30/19 20:43; Admin Dose 5 MG; Start 01/26/19 at 21:00 Folic Acid (Folic Acid) 1 mg DAILY GTB Last administered on 01/31/19 08:17; Admin Dose 1 MG; Start 01/27/19 at 09:00 Hydralazine HCl (Apresoline) 25 mg Q8 PO Last administered on 01/31/19 06:08; Admin Dose 25 MG; Start 01/26/19 at 22:00 Insulin Aspart (Novolog Insulin Pen) 1 unit SLIDING SCALE AC SC ; Start 01/26/19 at 17:30 Linagliptin (Tradjenta) 5 mg DAILY GTB Last administered on 01/31/19 08:17; Admin Dose 5 MG; Start 01/27/19 at 09:00 Lorazepam (Ativan) 1 mg HS PRN GTB ANXIETY Last administered on 01/28/19 22:27; Admin Dose 1 MG; Start 01/26/19 at 17:30 Metoprolol Tartrate (Lopressor) 50 mg BID GTB Last administered on 01/30/19 20:44; Admin Dose 50 MG; Start 01/26/19 at 21:00 Polyethylene Glycol (Miralax) 17 gm Q24H GTB Last administered on 01/30/19 18:07; Admin Dose 17 GM; Start 01/26/19 at 17:30 Quetiapine Fumarate (Seroquel) 25 mg BID GTB Last administered on 01/31/19 08: 18; Admin Dose 25 MG; Start 01/26/19 at 21:00 Senna (Senokot) 1 tab BID PO Last administered on 01/31/19 08:18; Admin Dose 1 TAB; Start 01/26/19 at 21:00 Lansoprazole (Prevacid) 30 mg DAILY@06 GTB Last administered on 01/31/19 06:06; Admin Dose 30 MG; Start 01/27/19 at 06:00 Heparin Sodium (Porcine) (Heparin (1000 Units/ml)) 4,000 unit AFTER DIALYSIS CATHETER Last administered on 01/28/19 18:37; Admin Dose 4,000 UNIT; Start 01/27/19 at 00:30 [facility] This patient lane... PRN PRN XX WOUND CARE; Start 01/27/19 at 04:30 Docusate Sodium (Colace Liquid Cup) 100 mg BID GTB Last administered on 01/31/19 08:17; Admin Dose 100 MG; Start 01/27/19 at 10:00 Ferrous Sulfate (Feosol Liquid Cup) 300 mg BID NGT Last administered on 01/31/19 08:17; Admin Dose 300 MG; Start 01/27/19 at 10:00 Valproate Sodium (Depakene Liquid Cup) 250 mg Q8 PO Last administered on 01/31/19 06:06; Admin Dose 250 MG; Start 01/27/19 at 22:00 IV Flush (NS 3 ml) 3 ml per protocol IV ; Start 01/29/19 at 15:30 Morphine Sulfate (morphine) 2 mg Q3H PRN IV PAIN; Start 01/29/19 at 16:00 Acetaminophen/ Hydrocodone Bitart ([place] (5/325)) 1 tab Q3H PRN PO MODERATE PAIN LEVEL 4-6 Last administered on 01/31/19 08:13; Admin Dose 1 TAB; Start 01/29/19 at 16:00 Vancomycin HCl (Vanco Iv Per Pharmacy) VANCOMYCIN PER PHARMACY PER PROTOCOL XX ; Start 01/31/19 at 10:30 Meropenem/Sodium Chloride 50 ml @ 100 mls/hr Q24H IVPB Last administered on 01/31/19at 12:41; Admin Dose 100 MLS/HR; Start 01/31/19 at 13:00 Vancomycin HCl 250 ml @ 125 mls/hr ONCE IVPB Last administered on 01/31/19 12:41; Admin Dose 125 MLS/HR; Start 01/31/19 at 12:00; Stop 01/31/19 at 13:59 Insulin Detemir (Levemir) 4 units DAILY@2000 SC ; Start 01/31/19 at 20:00 JOSE RAUL ANDREWS MD Jan 31, 2019 13:54
--- NOTE | 2019-01-31 14:16 | PN ---
DATE: 01/31/2019 SUBJECTIVE: The patient was seen. This morning, she was noted to be more hypotensive with worsening leukocytosis, also the patient with worsening anemia. To rule out sepsis, the lactic acid was order ed. Albumin order was given and I started her empirically on broad spectrum antibiotic. Blood cultu res and urine studies were ordered as well. I requested ID consultation. Case was discussed with Dr Karlene Natarajan as dialysis was placed on hold due to the above. The patient is status post [place] [facility]. The patient is lethargic. Per nursing staff, the patient was somewhat discomfort and increased anxiety this morning as well. PHYSICAL EXAMINATION: VITAL SIGNS: Temperature is 98.5, pulse is 100, respirations 16, blood pressure 127/60, saturation 9 9%. GENERAL: The patient is in no acute distress, encephalopathic, currently nonresponsive, but overall appears to be comfortable. CARDIOVASCULAR: S1, S2. LUNGS: Clear. ABDOMEN: Soft. G-tube in place. EXTREMITIES: No clubbing, cyanosis or edema. LABORATORY DATA: White count 16.5, hemoglobin 7, hematocrit 21, platelet count 264, neutrophils 87%, bands of 3%. Chemistry: Sodium 129, potassium 3.8, chloride 104, bicarbonate 26, BUN is 64, creati nine 2.32 and glucose of 189. Lactic acid actually came back normal at 1.8. Last glucose level of 2 30, slightly high. MEDICATIONS: 1. The patient is on G-tube feeding at 30 mL an hour with Nepro. 2. Merrem daily. 3. Vancomycin dose per pharmacy. 4. Morphine 2 mg IV q.3 p.r.n. 5. [place] 5/325 q.3 p.r.n. 6. Depakote 250 q.8. 7. Colace 100 b.i.d. 8. Ferrous sulfate 300 b.i.d. 9. Folic acid. 10. Tradjenta 5 mg daily. 11. Prevacid daily. 12. Heparin as directed. 13. Hydralazine 25 q.8 hours. 14. Heparin 5000 q.12. 15. Norvasc 5 mg b.i.d. 16. Lopressor 50 b.i.d. 17. Seroquel 25 b.i.d. 18. Senna b.i.d. 18. Hypoglycemia protocol. 20. Insulin per sliding scale. ASSESSMENT AND PLAN: This is an 83-year-old [place] female, very ill, with multiple medical issues including diabetes mellitus, end-stage renal disease, dementia, chronic kidney disease, malnutrition, dysphagia, G-tube feeding, anemia, history of aspiration pneumonia, recent bacteremia and fungemia, presented with left distal femur fracture, status post repair. 1. Respiratory: Lungs are clear. O2 support as needed. 2. Cardiovascular: The patient was slightly hypotensive possibly due to either blood loss versus ea rly sepsis. The patient was pancultured. Albumin was given. We will transfuse the patient packed r ed blood cells. 3. Anemia likely due to blood loss and the patient's renal insufficiency. We will transfuse 1 unit of PRBC due to hypotension. 4. Malfunctioning G-tube. G-tube was replaced. 5. Dysphagia. Continue G-tube feeding, tolerating it well. Aspiration precaution is advised with h ead elevation. 6. Diabetes mellitus. Add low dose Levemir as the glucose level in the mid high 100s. Continue Tra djenta. 7. Psychiatric disorder. Anxiolytics p.r.n. 8. Pain control is being provided postoperatively. 9. Worsening leukocytosis. Empirically start antibiotic in the setting of hypotension. The patient is to be pancultured and ID consult will follow. 10. End-stage renal disease. Dialysis was deferred due to hypotension. Further dialysis per nephro logy team. Family is aware of the patient's current condition. Remains overall stable despite the a mike. We will follow. Dictated By: DYLON HULL/MADAN Conf#: [id number] DID#: [id number] CC: CESARIO RIVERA MD;*EndCC*
--- NOTE | 2019-01-31 15:39 | CONS ---
Consult Date/Type/Reason Admit Date/Time Jan 26, 2019 at 17:14 Initial Consult Date 01/28/19 Requesting Provider: DYLON WALLS MD Date/Time of Note DATE: 01/31/19 TIME: 15:35 Subjective cardiology S: D/W staff pt is still confused and is not able to provide any reliable history to me O: General: Elderly frail female in no acute distress HEENT: NC/AT. Pupils are equal NECK: NO JVD. no stridor. CV: RRR. systolic murmur; no gallop or rubs. PULM: no wheezing or rhonchi. GI: SOFT, NT, ND, no rebound or guarding neuro: Awake however is confused. Psych: confused but calm now rectal: deferred EKG done 01/26/2019 which was personally reviewed showed normal sinus rhythm nonspecific T wave abnormalities review of old chart shows ECHO done Oct 2018: Normal left ventricular systolic function. Normal left ventricular cavity size. Moderate concentric left ventricular hypertrophy. Ejection fraction is visually estimated at 65 %. Abnormal Diastolic Function. Mitral valve leaflets appear moderately thickened. Moderate mitral annular calcification. Trace mitral regurgitation. Aortic valve not well visualized. No hemodynamically significant aortic stenosis by doppler. Aortic sclerosis without significant stenosis. Aortic cusps appear mildly calcified. Mild to moderate aortic valve regurgitation. Estimated peak PA systolic pressure 40 mmHg. Tricuspid valve appears moderately thickened. There is mild tricuspid regurg Objective Vitals Vital Signs Date Temp Pulse Resp B/P (MAP) Pulse Ox O2 O2 Flow FiO2 Time Delivery Rate 01/31/19 97.8 99 18 126/57 97 13:54 (80) 01/29/19 Room Air 17:30 01/29/19 2.0 16:11 Intake and Output 01/30/19 01/30/19 01/31/19 1515:00 23:00 07:00 IntakeIntake Total 50 ml 200 ml 120 ml BalanceBalance 50 ml 200 ml 120 ml Results/Medications Result Diagram: 01/31/19 0540 01/31/19 0540 Results 24 hrs Laboratory Tests Test 01/31/19 05:40 01/31/19 08:04 01/31/19 10:30 White Blood Count 16.5 #H Red Blood Count 2.48 L Hemoglobin 7.0 L Hematocrit 21.3 L Mean Corpuscular Volume 85.9 Mean Corpuscular Hemoglobin 28.2 L Mean Corpuscular Hemoglobin Concent 32.9 Red Cell Distribution Width 16.3 H Platelet Count 264 # Mean Platelet Volume 11.7 H Immature Granulocytes % 1.200 H Neutrophils % Segmented Neutrophils % (Manual) 87 H Band Neutrophils % (Manual) 3 Lymphocytes % Lymphocytes % (Manual) 3 L Monocytes % Monocytes % (Manual) 4 Eosinophils % Eosinophils % (Manual) 2 Basophils % Basophils % (Manual) 1 Nucleated Red Blood Cells % 1 H Immature Granulocytes # 0.190 H Neutrophils # Neutrophils # (Manual) 14.4 H Band Neutrophils # 0.4 Lymphocytes (Manual) 0.4 L Lymphocytes # Monocytes # Monocytes # (Manual) 0.6 Eosinophils # Basophils # Basophils # (Manual) 0.1 H Nucleated Red Blood Cells # Platelet Estimate NORMAL Polychromasia 1+ Poikilocytosis 1+ Anisocytosis 1+ Microcytosis 1+ Macrocytosis 1+ Ovalocytes 1+ Sodium Level 139 Potassium Level 3.9 Chloride Level 104 Carbon Dioxide Level 26 Anion Gap 9 Blood Urea Nitrogen 54 H Creatinine 2.32 H Est Glomerular Filtrat Rate mL/min Glucose Level 189 Calcium Level 8.1 L Phosphorus Level 2.4 L Magnesium Level 2.4 Bedside Glucose 230 H Lactic Acid Level 1.8 Home Meds Reported Medications Guaifenesin-Dextromethorphan* (Robitussin* DM) 100MG/10MG/5ML Syrup, 5 ML GTB Q4H, ML 01/26/19 Metoclopramide* (Reglan*) 5 Mg Tablet, 5 MG GTB Q6H PRN for NAUSEA AND OR VOMITING, TAB 01/26/19 Na Phos,M-B/Na Phos,Di-Ba (Fleet Enema Extra) Unknown Strength Enema, 1 APPLIC RC Q2D, ENEMA 01/26/19 Bisacodyl* (Bisacodyl*) 10 Mg Supp, 10 MG HI DAILY, SUPP 01/26/19 Magnesium Hydroxide* (Milk Of Magnesia*) 400 Mg/5 Ml Oral.susp, 30 ML GTB QHS, ML 01/26/19 Insulin Glargine* (Lantus*) 100 Unit/Ml Soln, 4 UNIT SC QHS, #1 VIAL 01/26/19 Insulin Aspart* (Novolog Insulin Pen*) 100 Unit/Ml Soln, 0 SC .SLIDING SCALE AC, EA IF BS 0-150=0 UNIT,151-200=1 UNIT,201-250=2 UNITS,251-300=3 UNITS,301-350=4 UNITS,351-400=5 UNITS. IF >400=6 UNITS AND CALL MD IF<60=ORANGE JUICE OR GLUCOSE GEL AND CALL MD 01/26/19 Olanzapine* (Zyprexa*) 5 Mg Tablet, 5 MG GTB DAILY, #30 TAB 01/26/19 Lorazepam* (Lorazepam*) 0.5 Mg Tablet, 0.5 MG GTB HS PRN for ANXIETY, TAB 01/26/19 Amino Acids/Protein Hydrolys (PRO-STAT LIQUID) 30 Ml Liquid.pkt, 30 ML GTB DAILY SUGAR FREE 01/26/19 Multivit &Minerals/Ferrous Fum (MULTIVITAMIN LIQUID) 9 Mg/15 Ml Liquid, 5 ML GTB DAILY 01/26/19 Ascorbic Acid (Vitamin C) 500 Mg Tab, 500 MG GTB DAILY, TAB 01/26/19 Ferrous Sulfate* (Ferrous Sulfate*) 220 Mg/5 Ml Solution, 7.5 ML GTB DAILY, ML 01/26/19 Cran/Vitc/Mannose/Inulin/Brom (Uti-Stat Liquid) 3,875 Mg/30 Ml Liquid, 30 MG GTB BID 01/26/19 Cranberry Extract (Cranberry) 425 Mg Capsule, 425 MG GTB DAILY, CAP 01/26/19 Sevelamer Carbonate* (Renvela*) 800 Mg Tablet, 1.6 GM GTB WITH MEALS, TAB 01/26/19 Metoprolol Tartrate* (Lopressor*) 100 Mg Tablet, 100 MG GTB BID, #60 TAB 01/26/19 Ipratropium-Albuterol (Ipratropium-Albuterol) 0.5-3 Mg/3 Ml Ampul.neb, 3 ML INHALATION Q6, #30 VIAL 01/26/19 Aspirin* (Aspirin* Chew) 81 Mg Tab.chew, 81 MG GTB DAILY, TAB.CHEW 01/26/19 [Nephro-Roque] No Conflict Check, 1 TAB GTB DAILY 01/26/19 Pantoprazole* (Pantoprazole*) 40 Mg Tablet.dr, 40 MG GTB AC BREAKFAST DINNER, TAB 01/26/19 Atorvastatin* (Atorvastatin*) 40 Mg Tablet, 40 MG GTB QHS, #30 TAB 01/26/19 Acetaminophen* (Acetaminophen*) 500 MG Extra Strength Tablet, 1000 MG GTB Q4H PRN for PAIN LEVEL 4-6/10, TAB 01/26/19 Acetaminophen* (Acetaminophen*) 500 MG Extra Strength Tablet, 1000 MG GTB DAILY PRN for PAIN AND OR ELEVATED TEMP, TAB 01/26/19 Acetaminophen* (Acetaminophen*) 325 Mg Tablet, 325 MG GTB Q4H PRN for FOR FEVER 100AND ABOVE, #30 TAB 01/26/19 Lansoprazole* (Lansoprazole*) 30 Mg Capsule.dr, 30 MG PO QAM, CAP 11/16/18 Hydralazine Hcl* (Hydralazine Hcl*) 25 Mg Tab, 25 MG PO Q8, #90 TAB 11/16/18 Valproate Sodium (Valproic Acid) 250 Mg/5 Ml Solution, 250 MG PO Q8, ML 11/16/18 Ondansetron Hcl* (Zofran*) 4 Mg Tab, 4 MG GTB Q4H PRN for NAUSEA AND OR VOMITING, TAB 10/16/18 Linagliptin (TRADJENTA) 5 Mg Tablet, 5 MG GTB DAILY, TAB 10/16/18 Polyethylene Glycol* (Miralax*) 17 Gm Powd.pack, 17 GM GTB Q24H, #30 PACKET 10/16/18 Folic Acid* (Folic Acid*) 1 Mg Tablet, 1 MG GTB DAILY, TAB 10/16/18 Docusate Sodium* (Colace*) 100 Mg Capsule, 100 MG GTB DAILY, #30 CAP 10/16/18 Amlodipine Besylate* (Norvasc*) 5 Mg Tablet, 5 MG GTB BID, TAB TAKE Q TUE,ANDREW,SAT FOR HTN, HOLD FOR SBP<110 OR HI<60 10/16/18 Acetaminophen* (Acetaminophen*) 650 Mg Tablet, 650 MG GTB Q6H PRN for PAIN LEVEL 1-1010, #30 TAB 10/16/18 Discontinued Reported Medications Sennosides* (Senna Lax*) 8.6 Mg Tablet, 1 TAB PO BID, TAB 11/16/18 Sevelamer Carbonate* (Renvela*) 0.8 Gm Powd.pack, 0.8 GM PO WITH MEALS, PACKET 11/16/18 Ferrous Sulfate* (Ferrous Sulfate*) 325 Mg Tabec, 325 MG PO BID for anemia, TAB 11/16/18 Insulin Aspart* (Novolog Insulin Pen*) 100 Unit/Ml Soln, 0 SC .SLIDING SCALE AC, EA IF BS 160-200=2 UNITS,201-250=4 UNITS,251-300=8 UNITS,301-350=12 UNITS;351-400=16 UNITS THEN CALL MD. 10/16/18 Quetiapine Fumarate* (Seroquel*) 25 Mg Tablet, 25 MG GTB BID, #60 TAB 10/16/18 [Nephro-Roque] No Conflict Check, 0.8 MG GTB DAILY 10/16/18 Metoprolol Tartrate* (Lopressor*) 50 Mg Tab, 50 MG GTB DAILY, #60 TAB Q MON,WED,FRI,SUN,HOLD FOR SBP<110 OR HI<60 10/16/18 Metoprolol Tartrate* (Lopressor*) 50 Mg Tab, 50 MG GTB BID, #60 TAB QTUE,ANDREW,SAT,HOLD FOR SBP<110 OR HI<60 10/16/18 Linaclotide (LINZESS) 145 Mcg Capsule, 145 MCG GTB DAILY, #30 CAP 10/16/18 Ipratropium-Albuterol (Ipratropium-Albuterol) 0.5-3 Mg/3 Ml Ampul.neb, 3 ML INHALATION Q6, #30 VIAL FOR 14 DAYS,STOP DATE 10/17/18 10/16/18 Hydralazine Hcl* (Hydralazine Hcl*) 25 Mg Tab, 25 MG GTB DAILY, #60 TAB Q TUE,ANDREW,SAT,HOLD IF SBP<110 OR HI<60 10/16/18 Lorazepam* (Lorazepam*) 1 Mg Tablet, 1 MG GTB HS PRN for ANXIETY, #30 TAB Q TUE,ANDREW,SAT 10/16/18 Medications Current Medications IV Flush (NS 3 ml) 3 ml PER PROTOCOL IV Last administered on 01/30/19at 23:54; Admin Dose 3 ML; Start 01/26/19 at 17:30 Ondansetron HCl (Zofran Inj) 4 mg Q6H PRN IV NAUSEA/VOMITING; Start 01/26/19 at 17:30 Acetaminophen (Tylenol Tab) 650 mg Q6H PRN PO .PAIN 1-3 OR TEMP; Start 01/26/19 at 17:30 Acetaminophen/ Hydrocodone Bitart ([place] (5/325)) 1 tab Q6H PRN PO .MOD PAIN 4- 6; Start 01/26/19 at 17:30 Morphine Sulfate (morphine) 2 mg Q4H PRN IV .SEVERE PAIN 7-10; Start 01/26/19 at 17:30 Magnesium Hydroxide (Milk Of Mag) 30 ml DAILY PRN PO .CONSTIPATION; Start 01/26/19 at 17:30 Heparin Sodium (Porcine) (Heparin (5000 Units/1ml)) 5,000 unit Q12 SC Last administered on 01/30/19 20:46; Admin Dose 5,000 UNIT; Start 01/26/19 at 21:00 Acetaminophen (Tylenol Tab) 650 mg Q6H PRN GTB PAIN LEVEL 1-10/10; Start 01/26/19 at 17:30 Amlodipine Besylate (Norvasc) 5 mg BID GTB Last administered on 01/30/19 20:43; Admin Dose 5 MG; Start 01/26/19 at 21:00 Folic Acid (Folic Acid) 1 mg DAILY GTB Last administered on 01/31/19 08:17; Admin Dose 1 MG; Start 01/27/19 at 09:00 Hydralazine HCl (Apresoline) 25 mg Q8 PO Last administered on 01/31/19 14:47; Admin Dose 25 MG; Start 01/26/19 at 22:00 Insulin Aspart (Novolog Insulin Pen) 1 unit SLIDING SCALE AC SC ; Start 01/26/19 at 17:30 Linagliptin (Tradjenta) 5 mg DAILY GTB Last administered on 01/31/19 08:17; Admin Dose 5 MG; Start 01/27/19 at 09:00 Lorazepam (Ativan) 1 mg HS PRN GTB ANXIETY Last administered on 01/28/19 22:27; Admin Dose 1 MG; Start 01/26/19 at 17:30 Metoprolol Tartrate (Lopressor) 50 mg BID GTB Last administered on 01/30/19 20:44; Admin Dose 50 MG; Start 01/26/19 at 21:00 Polyethylene Glycol (Miralax) 17 gm Q24H GTB Last administered on 01/30/19 18:07; Admin Dose 17 GM; Start 01/26/19 at 17:30 Quetiapine Fumarate (Seroquel) 25 mg BID GTB Last administered on 01/31/19 08:18; Admin Dose 25 MG; Start 01/26/19 at 21:00 Senna (Senokot) 1 tab BID PO Last administered on 01/31/19 08:18; Admin Dose 1 TAB; Start 01/26/19 at 21:00 Lansoprazole (Prevacid) 30 mg DAILY@06 GTB Last administered on 01/31/19 06:06; Admin Dose 30 MG; Start 01/27/19 at 06:00 Heparin Sodium (Porcine) (Heparin (1000 Units/ml)) 4,000 unit AFTER DIALYSIS CATHETER Last administered on 01/28/19 18:37; Admin Dose 4,000 UNIT; Start 01/27/19 at 00:30 [facility] This patient lane... PRN PRN XX WOUND CARE; Start 01/27/19 at 04:30 Docusate Sodium (Colace Liquid Cup) 100 mg BID GTB Last administered on 01/31/19 08:17; Admin Dose 100 MG; Start 01/27/19 at 10:00 Ferrous Sulfate (Feosol Liquid Cup) 300 mg BID NGT Last administered on 01/31/19 08:17; Admin Dose 300 MG; Start 01/27/19 at 10:00 Valproate Sodium (Depakene Liquid Cup) 250 mg Q8 PO Last administered on 01/31/19 14:47; Admin Dose 250 MG; Start 01/27/19 at 22:00 IV Flush (NS 3 ml) 3 ml per protocol IV ; Start 01/29/19 at 15:30 Morphine Sulfate (morphine) 2 mg Q3H PRN IV PAIN; Start 01/29/19 at 16:00 Acetaminophen/ Hydrocodone Bitart (Placedo (5/325)) 1 tab Q3H PRN PO MODERATE PAIN LEVEL 4-6 Last administered on 01/31/19 08:13; Admin Dose 1 TAB; Start 01/29/19 at 16:00 Vancomycin HCl (Vanco Iv Per Pharmacy) VANCOMYCIN PER PHARMACY PER PROTOCOL XX ; Start 01/31/19 at 10:30 Meropenem/Sodium Chloride 50 ml @ 100 mls/hr Q24H IVPB Last administered on 01/31/19at 12:41; Admin Dose 100 MLS/HR; Start 01/31/19 at 13:00 Insulin Detemir (Levemir) 4 units DAILY@2000 SC ; Start 01/31/19 at 20:00 Assessment/Plan Hospital Course (Demo Recall) Cardiovascular preop evaluation Femoral fracture status post fall: s/p surgery History of P-atrial fibrillation rapid ventricular response: Currently back in sinus rhythm History of fungemia /fungal urinary tract infection Status post right hand hematoma: Status post I&D Renal failure on dialysis Hypertension Dementia Anemia AI Recommendations: cont beta-farrah as tolerated. Dialysis as per renal team Antibiotic as per ID and internal medicine DVT prophylaxis as per internal medicine Patient is currently optimized medical therapy Thank you for his referral. We will continue to follow along with you as needed CHRISTEN ESCOBEDO MD [facility] CHRISTEN ESCOBEDO MD Jan 31, 2019 15:39
[2019-01-31] MEDS: POLYETHYLENE GLYCOL 17 GM PACKET GTB SCH (17:33)
--- NOTE | 2019-01-31 18:48 | PN ---
DATE: 01/31/2019 Second postop day, afebrile. H and H is down to 7.0/21.3, being transfused with 1 unit of packed domenic ls. Postop x-ray shows satisfactory alignment of the fracture under the circumstances, no signs of n eurovascular compromise. Left lower extremity in a long leg brace with a dial lock at the knee. Dictated By: CESARIO RIVERA MD IK/NTS Conf#: [id number] DID#: [id number] CC: DYLON WALLS MD;*EndCC*
[2019-01-31] MEDS: INSULIN DETEMIR [LEVEMIR] (100 UNITS/ML) SYG SC SCH (20:17)
[2019-02-01] VITALS (29 sets, daily range): BP systolic 105–154; BP diastolic 52–69; PULSE 81–99; RESP 16–20
[2019-02-01] MEDS: HYDROCODONE/APAP (5/325) TAB PO PRN ×2 (04:19→21:06)
[2019-02-01] MEDS: VALPROIC ACID LIQUID CUP 250 MG/5 ML CUP PO SCH ×3 (05:45→22:06)
[2019-02-01] MEDS: LANSOPRAZOLE 30 MG CAP GTB SCH (05:45)
--- NOTE | 2019-02-01 08:38 | CONS ---
Assessment/Plan Assessment/Plan Hospital Course (Demo Recall) 83 yo female Interval hx: Tolerating tube feeds at 30cc. Denies abdominal pain or nausea. Last bm 01/29 1. Malfunctioning gastrostomy tube. G-tube was changed to 18 Romanian and its position verified with the Gastrografin study 2. Supracondylar fracture of the left femur., s/p repair 3. Dementia. 4. Diabetes mellitus. 5. Cachexia. 6. End-stage renal disease, on dialysis. 7. Diastolic heart failure. Plan Continue feeding through the G-tube. Pain management Monitor for GI bleeding Pt examined and plan of care discussed with Dr. Baird Consultation Date/Type/Reason Admit Date/Time Jan 26, 2019 at 17:14 Initial Consult Date 01/28/19 Requesting Provider: DYLON WALLS MD Date/Time of Note DATE: 02/01/19 TIME: 08:37 Exam/Review of Systems Exam Vitals Vital Signs Date Temp Pulse Resp B/P (MAP) Pulse Ox O2 O2 Flow FiO2 Time Delivery Rate 02/01/19 97.1 95 18 120/59 98 07:54 (79) 02/01/19 Room Air 06:00 01/29/19 2.0 16:11 Intake and Output 01/31/19 01/31/19 02/01/19 1414:59 22:59 06:59 IntakeIntake Total 760 ml 860 ml 410 ml BalanceBalance 760 ml 860 ml 410 ml Constitutional: alert Head: normocephalic Eyes: nl sclera, PERRL Respiratory: clear to auscultation Cardiovascular: regular rate and rhythm Gastrointestinal: soft, non-tender 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: confused Results Result Diagram: 02/01/19 0531 01/31/19 0540 Results 24hrs Laboratory Tests Test 01/31/19 10:30 01/31/19 14:35 01/31/19 20:12 02/01/19 04:43 Lactic Acid Level 1.8 Urine Color MARCELINO Urine Clarity CLOUDY A Urine pH 5.0 Urine Specific 1.017 [place] Urine Ketones NEGATIVE Urine Nitrite NEGATIVE Urine Bilirubin NEGATIVE Urine Urobilinogen NEGATIVE Urine Leukocyte 3+ H Esterase Urine Microscopic 8 H RBC Urine Microscopic > 182 H WBC Urine Squamous MODERATE Epithelial Cells Urine Bacteria FEW A Urine Yeast MANY A (Budding) Urine Hemoglobin NEGATIVE Urine Glucose 1+ H Urine Total Protein 2+ H Bedside Glucose 234 H Phosphorus Level 2.8 Magnesium Level 2.6 H Test 02/01/19 05:31 White Blood Count 12.8 #H Red Blood Count 2.69 L Hemoglobin 7.7 L Hematocrit 23.3 L Mean Corpuscular 86.6 Volume Mean Corpuscular 28.6 L Hemoglobin Mean Corpuscular 33.0 Hemoglobin Concent Red Cell 16.1 H Distribution Width Platelet Count 245 Mean Platelet Volume 11.1 H Immature 1.700 H Granulocytes % Neutrophils % 85.8 H Lymphocytes % 3.4 L Monocytes % 7.8 Eosinophils % 1.0 Basophils % 0.3 Nucleated Red Blood 0.3 H Cells % Immature 0.220 H Granulocytes # Neutrophils # 11.0 H Lymphocytes # 0.4 L Monocytes # 1.0 H Eosinophils # 0.1 Basophils # 0.0 Nucleated Red Blood 0.0 Cells # Medications Medication Current Medications IV Flush (NS 3 ml) 3 ml PER PROTOCOL IV Last administered on 01/30/19at 23:54; Admin Dose 3 ML; Start 01/26/19 at 17:30 Ondansetron HCl (Zofran Inj) 4 mg Q6H PRN IV NAUSEA/VOMITING; Start 01/26/19 at 17:30 Acetaminophen (Tylenol Tab) 650 mg Q6H PRN PO .PAIN 1-3 OR TEMP; Start 01/26/19 at 17:30 Acetaminophen/ Hydrocodone Bitart (Stanley (5/325)) 1 tab Q6H PRN PO .MOD PAIN 4- 6; Start 01/26/19 at 17:30 Morphine Sulfate (morphine) 2 mg Q4H PRN IV .SEVERE PAIN 7-10; Start 01/26/19 at 17:30 Magnesium Hydroxide (Milk Of Mag) 30 ml DAILY PRN PO .CONSTIPATION; Start 01/26/19 at 17:30 Heparin Sodium (Porcine) (Heparin (5000 Units/1ml)) 5,000 unit Q12 SC Last administered on 01/31/19at 21:00; Admin Dose 5,000 UNIT; Start 01/26/19 at 21:00 Acetaminophen (Tylenol Tab) 650 mg Q6H PRN GTB PAIN LEVEL 1-10/10; Start 01/26/19 at 17:30 Amlodipine Besylate (Norvasc) 5 mg BID GTB Last administered on 01/31/19at 20:59; Admin Dose 5 MG; Start 01/26/19 at 21:00 Folic Acid (Folic Acid) 1 mg DAILY GTB Last administered on 01/31/19 08:17; Admin Dose 1 MG; Start 01/27/19 at 09:00 Hydralazine HCl (Apresoline) 25 mg Q8 PO Last administered on 02/01/19 05:45; Admin Dose 25 MG; Start 01/26/19 at 22:00 Insulin Aspart (Novolog Insulin Pen) 1 unit SLIDING SCALE AC SC ; Start 01/26/19 at 17:30 Linagliptin (Tradjenta) 5 mg DAILY GTB Last administered on 01/31/19 08:17; Admin Dose 5 MG; Start 01/27/19 at 09:00 Lorazepam (Ativan) 1 mg HS PRN GTB ANXIETY Last administered on 01/28/19 22:27; Admin Dose 1 MG; Start 01/26/19 at 17:30 Metoprolol Tartrate (Lopressor) 50 mg BID GTB Last administered on 01/31/19 20:59; Admin Dose 50 MG; Start 01/26/19 at 21:00 Polyethylene Glycol (Miralax) 17 gm Q24H GTB Last administered on 01/31/19 17:33; Admin Dose 17 GM; Start 01/26/19 at 17:30 Quetiapine Fumarate (Seroquel) 25 mg BID GTB Last administered on 01/31/19 20:58; Admin Dose 25 MG; Start 01/26/19 at 21:00 Senna (Senokot) 1 tab BID PO Last administered on 01/31/19 20:58; Admin Dose 1 TAB; Start 01/26/19 at 21:00 Lansoprazole (Prevacid) 30 mg DAILY@06 GTB Last administered on 02/01/19 05:45; Admin Dose 30 MG; Start 01/27/19 at 06:00 Heparin Sodium (Porcine) (Heparin (1000 Units/ml)) 4,000 unit AFTER DIALYSIS CATHETER Last administered on 01/28/19 18:37; Admin Dose 4,000 UNIT; Start 01/27/19 at 00:30 [facility] This patient lane... PRN PRN XX WOUND CARE; Start 01/27/19 at 04:30 Docusate Sodium (Colace Liquid Cup) 100 mg BID GTB Last administered on 01/31/19 20:58; Admin Dose 100 MG; Start 01/27/19 at 10:00 Ferrous Sulfate (Feosol Liquid Cup) 300 mg BID NGT Last administered on 01/31/19 20:58; Admin Dose 300 MG; Start 01/27/19 at 10:00 Valproate Sodium (Depakene Liquid Cup) 250 mg Q8 PO Last administered on 02/01/19 05:45; Admin Dose 250 MG; Start 01/27/19 at 22:00 IV Flush (NS 3 ml) 3 ml per protocol IV ; Start 01/29/19 at 15:30 Morphine Sulfate (morphine) 2 mg Q3H PRN IV PAIN; Start 01/29/19 at 16:00 Acetaminophen/ Hydrocodone Bitart (Stan[place] (5/325)) 1 tab Q3H PRN PO MODERATE PAIN LEVEL 4-6 Last administered on 02/01/19 04:19; Admin Dose 1 TAB; Start 01/29/19 at 16:00 Vancomycin HCl (Vanco Iv Per Pharmacy) VANCOMYCIN PER PHARMACY PER PROTOCOL XX ; Start 01/31/19 at 10:30 Meropenem/Sodium Chloride 50 ml @ 100 mls/hr Q24H IVPB Last administered on 01/31/19 12:41; Admin Dose 100 MLS/HR; Start 01/31/19 at 13:00 Insulin Detemir (Levemir) 4 units DAILY@2000 SC Last administered on 01/31/19 20:17; Admin Dose 4 UNITS; Start 01/31/19 at 20:00 TONY VENCES Feb 01, 2019 08:38
[2019-02-01] MEDS: HEPARIN 5,000 UNIT/1 ML VIAL SC SCH ×2 (08:51→21:01)
[2019-02-01] MEDS: AMLODIPINE 5 MG TAB GTB SCH (08:52)
[2019-02-01] MEDS: FOLIC ACID 1 MG TAB GTB SCH (08:52)
[2019-02-01] MEDS: QUETIAPINE 25 MG TAB GTB SCH ×2 (08:52→20:58)
[2019-02-01] MEDS: SENNA TAB PO SCH ×2 (08:52→20:58)
[2019-02-01] MEDS: FERROUS SULFATE 60 MG/ML 5ML CUP NGT SCH ×2 (08:52→20:58)
[2019-02-01] MEDS: DOCUSATE SODIUM 10 MG/ML (10ML CUP) GTB SCH ×2 (08:52→20:58)
[2019-02-01] MEDS: METOPROLOL 50 MG TAB GTB SCH ×2 (08:53→20:59)
[2019-02-01] MEDS: LINAGLIPTIN 5 MG TABLET GTB SCH (08:57)
[2019-02-01] MEDS: BALSAM PERU/CASTOR OIL 60 GM TUBE TOP SCH ×2 (08:58→21:02)
--- NOTE | 2019-02-01 11:01 | CONS ---
Consult Date/Type/Reason Admit Date/Time Jan 26, 2019 at 17:14 Initial Consult Date 01/28/19 Type of Consultation: cv Requesting Provider: DYLON WALLS MD Date/Time of Note DATE: 02/01/19 TIME: 11:00 Subjective cardiology S: D/W staff pt is still confused and is not able to provide any reliable history to me O: General: Elderly frail female in no acute distress HEENT: NC/AT. Pupils are equal NECK: NO JVD. no stridor. CV: RRR. systolic murmur; no gallop or rubs. PULM: no wheezing or rhonchi. GI: SOFT, NT, ND, no rebound or guarding neuro: Sleeping comfortably in the Psych: calm now rectal: deferred EKG done 01/26/2019 which was personally reviewed showed normal sinus rhythm nonspecific T wave abnormalities review of old chart shows ECHO done Oct 2018: Normal left ventricular systolic function. Normal left ventricular cavity size. Moderate concentric left ventricular hypertrophy. Ejection fraction is visually estimated at 65 %. Abnormal Diastolic Function. Mitral valve leaflets appear moderately thickened. Moderate mitral annular calcification. Trace mitral regurgitation. Aortic valve not well visualized. No hemodynamically significant aortic stenosis by doppler. Aortic sclerosis without significant stenosis. Aortic cusps appear mildly calcified. Mild to moderate aortic valve regurgitation. Estimated peak PA systolic pressure 40 mmHg. Tricuspid valve appears moderately thickened. There is mild tricuspid regurg Objective Vitals Vital Signs Date Temp Pulse Resp B/P (MAP) Pulse Ox O2 O2 Flow FiO2 Time Delivery Rate 02/01/19 98.9 81 18 126/56 97 Room Air 10:00 (79) 01/29/19 2.0 16:11 Intake and Output 01/31/19 01/31/19 02/01/19 1515:00 23:00 07:00 IntakeIntake Total 760 ml 860 ml 410 ml BalanceBalance 760 ml 860 ml 410 ml Results/Medications Result Diagram: 02/01/19 0531 02/01/19530 Results 24 hrs Laboratory Tests Test 01/31/19 14:35 01/31/19 20:12 02/01/19 04:43 02/01/19 05:31 Urine Color MARCELINO Urine Clarity CLOUDY A Urine pH 5.0 Urine Specific 1.017 [place] Urine Ketones NEGATIVE Urine Nitrite NEGATIVE Urine Bilirubin NEGATIVE Urine Urobilinogen NEGATIVE Urine Leukocyte 3+ H Esterase Urine Microscopic 8 H RBC Urine Microscopic > 182 H WBC Urine Squamous MODERATE Epithelial Cells Urine Bacteria FEW A Urine Yeast MANY A (Budding) Urine Hemoglobin NEGATIVE Urine Glucose 1+ H Urine Total Protein 2+ H Bedside Glucose 234 H Phosphorus Level 2.8 Magnesium Level 2.6 H White Blood Count 12.8 #H Red Blood Count 2.69 L Hemoglobin 7.7 L Hematocrit 23.3 L Mean Corpuscular 86.6 Volume Mean Corpuscular 28.6 L Hemoglobin Mean Corpuscular 33.0 Hemoglobin Concent Red Cell 16.1 H Distribution Width Platelet Count 245 Mean Platelet Volume 11.1 H Immature 1.700 H Granulocytes % Neutrophils % 85.8 H Lymphocytes % 3.4 L Monocytes % 7.8 Eosinophils % 1.0 Basophils % 0.3 Nucleated Red Blood 0.3 H Cells % Immature 0.220 H Granulocytes # Neutrophils # 11.0 H Lymphocytes # 0.4 L Monocytes # 1.0 H Eosinophils # 0.1 Basophils # 0.0 Nucleated Red Blood 0.0 Cells # Sodium Level 140 Potassium Level 3.9 Chloride Level 103 Carbon Dioxide Level 25 Anion Gap 12 Blood Urea Nitrogen 70 H Creatinine 2.27 H Est Glomerular Filtrat Rate mL/min Glucose Level 125 # Calcium Level 8.5 Test 02/01/19 08:47 Bedside Glucose 146 Home Meds Reported Medications Guaifenesin-Dextromethorphan* (Robitussin* DM) 100MG/10MG/5ML Syrup, 5 ML GTB Q4H, ML 01/26/19 Metoclopramide* (Reglan*) 5 Mg Tablet, 5 MG GTB Q6H PRN for NAUSEA AND OR VOM ITING, TAB 01/26/19 Na Phos,M-B/Na Phos,Di-Ba (Fleet Enema Extra) Unknown Strength Enema, 1 APPLIC RC Q2D, ENEMA 01/26/19 Bisacodyl* (Bisacodyl*) 10 Mg Supp, 10 MG ME DAILY, SUPP 01/26/19 Magnesium Hydroxide* (Milk Of Magnesia*) 400 Mg/5 Ml Oral.susp, 30 ML GTB QHS, ML 01/26/19 Insulin Glargine* (Lantus*) 100 Unit/Ml Soln, 4 UNIT SC QHS, #1 VIAL 01/26/19 Insulin Aspart* (Novolog Insulin Pen*) 100 Unit/Ml Soln, 0 SC .SLIDING SCALE AC, EA IF BS 0-150=0 UNIT,151-200=1 UNIT,201-250=2 UNITS,251-300=3 UNITS,301-350=4 UNITS,351-400=5 UNITS. IF >400=6 UNITS AND CALL MD IF<60=ORANGE JUICE OR GLUCOSE GEL AND CALL MD 01/26/19 Olanzapine* (Zyprexa*) 5 Mg Tablet, 5 MG GTB DAILY, #30 TAB 01/26/19 Lorazepam* (Lorazepam*) 0.5 Mg Tablet, 0.5 MG GTB HS PRN for ANXIETY, TAB 01/26/19 Amino Acids/Protein Hydrolys (PRO-STAT LIQUID) 30 Ml Liquid.pkt, 30 ML GTB DAILY SUGAR FREE 01/26/19 Multivit &Minerals/Ferrous Fum (MULTIVITAMIN LIQUID) 9 Mg/15 Ml Liquid, 5 ML GTB DAILY 01/26/19 Ascorbic Acid (Vitamin C) 500 Mg Tab, 500 MG GTB DAILY, TAB 01/26/19 Ferrous Sulfate* (Ferrous Sulfate*) 220 Mg/5 Ml Solution, 7.5 ML GTB DAILY, ML 01/26/19 Cran/Vitc/Mannose/Inulin/Brom (Uti-Stat Liquid) 3,875 Mg/30 Ml Liquid, 30 MG GTB BID 01/26/19 Cranberry Extract (Cranberry) 425 Mg Capsule, 425 MG GTB DAILY, CAP 01/26/19 Sevelamer Carbonate* (Renvela*) 800 Mg Tablet, 1.6 GM GTB WITH MEALS, TAB 01/26/19 Metoprolol Tartrate* (Lopressor*) 100 Mg Tablet, 100 MG GTB BID, #60 TAB 01/26/19 Ipratropium-Albuterol (Ipratropium-Albuterol) 0.5-3 Mg/3 Ml Ampul.neb, 3 ML INHALATION Q6, #30 VIAL 01/26/19 Aspirin* (Aspirin* Chew) 81 Mg Tab.chew, 81 MG GTB DAILY, TAB.CHEW 01/26/19 [Nephro-Roque] No Conflict Check, 1 TAB GTB DAILY 01/26/19 Pantoprazole* (Pantoprazole*) 40 Mg Tablet.dr, 40 MG GTB AC BREAKFAST DINNER, TAB 01/26/19 Atorvastatin* (Atorvastatin*) 40 Mg Tablet, 40 MG GTB QHS, #30 TAB 01/26/19 Acetaminophen* (Acetaminophen*) 500 MG Extra Strength Tablet, 1000 MG GTB Q4H PRN for PAIN LEVEL 4-6/10, TAB 01/26/19 Acetaminophen* (Acetaminophen*) 500 MG Extra Strength Tablet, 1000 MG GTB DAILY PRN for PAIN AND OR ELEVATED TEMP, TAB 01/26/19 Acetaminophen* (Acetaminophen*) 325 Mg Tablet, 325 MG GTB Q4H PRN for FOR FEVER 100AND ABOVE, #30 TAB 01/26/19 Lansoprazole* (Lansoprazole*) 30 Mg Capsule.dr, 30 MG PO QAM, CAP 11/16/18 Hydralazine Hcl* (Hydralazine Hcl*) 25 Mg Tab, 25 MG PO Q8, #90 TAB 11/16/18 Valproate Sodium (Valproic Acid) 250 Mg/5 Ml Solution, 250 MG PO Q8, ML 11/16/18 Ondansetron Hcl* (Zofran*) 4 Mg Tab, 4 MG GTB Q4H PRN for NAUSEA AND OR VOMITING, TAB 10/16/18 Linagliptin (TRADJENTA) 5 Mg Tablet, 5 MG GTB DAILY, TAB 10/16/18 Polyethylene Glycol* (Miralax*) 17 Gm Powd.pack, 17 GM GTB Q24H, #30 PACKET 10/16/18 Folic Acid* (Folic Acid*) 1 Mg Tablet, 1 MG GTB DAILY, TAB 10/16/18 Docusate Sodium* (Colace*) 100 Mg Capsule, 100 MG GTB DAILY, #30 CAP 10/16/18 Amlodipine Besylate* (Norvasc*) 5 Mg Tablet, 5 MG GTB BID, TAB TAKE Q TUE,ANDREW,SAT FOR HTN, HOLD FOR SBP<110 OR ME<60 10/16/18 Acetaminophen* (Acetaminophen*) 650 Mg Tablet, 650 MG GTB Q6H PRN for PAIN LEVEL 1-10/10, #30 TAB 10/16/18 Discontinued Reported Medications Sennosides* (Senna Lax*) 8.6 Mg Tablet, 1 TAB PO BID, TAB 11/16/18 Sevelamer Carbonate* (Renvela*) 0.8 Gm Powd.pack, 0.8 GM PO WITH MEALS, PACKET 1/8/19 Ferrous Sulfate* (Ferrous Sulfate*) 325 Mg Tabec, 325 MG PO BID for anemia, TAB 11/16/18 Insulin Aspart* (Novolog Insulin Pen*) 100 Unit/Ml Soln, 0 SC .SLIDING SCALE AC, EA IF BS 160-200=2 UNITS,201-250=4 UNITS,251-300=8 UNITS,301-350=12 UNITS;351-400=16 UNITS THEN CALL . 10/16/18 Quetiapine Fumarate* (Seroquel*) 25 Mg Tablet, 25 MG GTB BID, #60 TAB 10/16/18 [Nephro-Roque] No Conflict Check, 0.8 MG GTB DAILY 10/16/18 Metoprolol Tartrate* (Lopressor*) 50 Mg Tab, 50 MG GTB DAILY, #60 TAB Q MON,WED,FRI,SUN,HOLD FOR SBP<110 OR ME<60 10/16/18 Metoprolol Tartrate* (Lopressor*) 50 Mg Tab, 50 MG GTB BID, #60 TAB QTUE,ANDREW,SAT,HOLD FOR SBP<110 OR ME<60 10/16/18 Linaclotide (LINZESS) 145 Mcg Capsule, 145 MCG GTB DAILY, #30 CAP 10/16/18 Ipratropium-Albuterol (Ipratropium-Albuterol) 0.5-3 Mg/3 Ml Ampul.neb, 3 ML INHALATION Q6, #30 VIAL FOR 14 DAYS,STOP DATE 10/17/18 10/16/18 Hydralazine Hcl* (Hydralazine Hcl*) 25 Mg Tab, 25 MG GTB DAILY, #60 TAB Q TUE,ANDREW,SAT,HOLD IF SBP<110 OR ME<60 10/16/18 Lorazepam* (Lorazepam*) 1 Mg Tablet, 1 MG GTB HS PRN for ANXIETY, #30 TAB Q TUE,ANDREW,SAT 10/16/18 Medications Current Medications IV Flush (NS 3 ml) 3 ml PER PROTOCOL IV Last administered on 01/30/19at 23:54; Admin Dose 3 ML; Start 01/26/19 at 17:30 Ondansetron HCl (Zofran Inj) 4 mg Q6H PRN IV NAUSEA/VOMITING; Start 01/26/19 at 17:30 Acetaminophen (Tylenol Tab) 650 mg Q6H PRN PO .PAIN 1-3 OR TEMP; Start 01/26/19 at 17:30 Acetaminophen/ Hydrocodone Bitart ([place] (5/325)) 1 tab Q6H PRN PO .MOD PAIN 4- 6; Start 01/26/19 at 17:30 Morphine Sulfate (morphine) 2 mg Q4H PRN IV .SEVERE PAIN 7-10; Start 01/26/19 at 17:30 Magnesium Hydroxide (Milk Of Mag) 30 ml DAILY PRN PO .CONSTIPATION; Start 01/26/19 at 17:30 Heparin Sodium (Porcine) (Heparin (5000 Units/1ml)) 5,000 unit Q12 SC Last administered on 02/01/19at 08:51; Admin Dose 5,000 UNIT; Start 01/26/19 at 21:00 Acetaminophen (Tylenol Tab) 650 mg Q6H PRN GTB PAIN LEVEL 1-10/10; Start 01/26/19 at 17:30 Amlodipine Besylate (Norvasc) 5 mg BID GTB Last administered on 02/01/19 08:52; Admin Dose 5 MG; Start 01/26/19 at 21:00 Folic Acid (Folic Acid) 1 mg DAILY GTB Last administered on 02/01/19 08:52; Admin Dose 1 MG; Start 01/27/19 at 09:00 Hydralazine HCl (Apresoline) 25 mg Q8 PO Last administered on 02/01/19at 05:45; Admin Dose 25 MG; Start 01/26/19 at 22:00 Insulin Aspart (Novolog Insulin Pen) 1 unit SLIDING SCALE AC SC ; Start 01/26/19 at 17:30 Linagliptin (Tradjenta) 5 mg DAILY GTB Last administered on 02/01/19 08:57; Admin Dose 5 MG; Start 01/27/19 at 09:00 Lorazepam (Ativan) 1 mg HS PRN GTB ANXIETY Last administered on 01/28/19at 22:27; Admin Dose 1 MG; Start 01/26/19 at 17:30 Metoprolol Tartrate (Lopressor) 50 mg BID GTB Last administered on 02/01/19 08:53; Admin Dose 50 MG; Start 01/26/19 at 21:00 Polyethylene Glycol (Miralax) 17 gm Q24H GTB Last administered on 01/31/19 17:33; Admin Dose 17 GM; Start 01/26/19 at 17:30 Quetiapine Fumarate (Seroquel) 25 mg BID GTB Last administered on 02/01/19 08:52; Admin Dose 25 MG; Start 01/26/19 at 21:00 Senna (Senokot) 1 tab BID PO Last administered on 02/01/19 08:52; Admin Dose 1 TAB; Start 01/26/19 at 21:00 Lansoprazole (Prevacid) 30 mg DAILY@06 GTB Last administered on 02/01/19 05: 45; Admin Dose 30 MG; Start 01/27/19 at 06:00 Heparin Sodium (Porcine) (Heparin (1000 Units/ml)) 4,000 unit AFTER DIALYSIS CATHETER Last administered on 01/28/19 18:37; Admin Dose 4,000 UNIT; Start 01/27/19 at 00:30 Miscellaneous Information (Pending [facility] Order For Wound Care) This patient lane... PRN PRN XX WOUND CARE; Start 01/27/19 at 04:30 Docusate Sodium (Colace Liquid Cup) 100 mg BID GTB Last administered on 02/01/19 08:52; Admin Dose 100 MG; Start 01/27/19 at 10:00 Ferrous Sulfate (Feosol Liquid Cup) 300 mg BID NGT Last administered on 02/01/19 08:52; Admin Dose 300 MG; Start 01/27/19 at 10:00 Valproate Sodium (Depakene Liquid Cup) 250 mg Q8 PO Last administered on 02/01/19 05:45; Admin Dose 250 MG; Start 01/27/19 at 22:00 IV Flush (NS 3 ml) 3 ml per protocol IV ; Start 01/29/19 at 15:30 Morphine Sulfate (morphine) 2 mg Q3H PRN IV PAIN; Start 01/29/19 at 16:00 Acetaminophen/ Hydrocodone Bitart ([place] (5/325)) 1 tab Q3H PRN PO MODERATE PAIN LEVEL 4-6 Last administered on 02/01/19 04:19; Admin Dose 1 TAB; Start 01/29/19 at 16:00 Vancomycin HCl (Vanco Iv Per Pharmacy) VANCOMYCIN PER PHARMACY PER PROTOCOL XX ; Start 3/25/19 at 10:30 Meropenem/Sodium Chloride 50 ml @ 100 mls/hr Q24H IVPB Last administered on 01/31/19at 12:41; Admin Dose 100 MLS/HR; Start 01/31/19 at 13:00 Insulin Detemir (Levemir) 4 units DAILY@2000 SC Last administered on 01/31/19at 20:17; Admin Dose 4 UNITS; Start 01/31/19 at 20:00 Assessment/Plan Hospital Course (Demo Recall) Cardiovascular preop evaluation Femoral fracture status post fall: s/p surgery History of P-atrial fibrillation rapid ventricular response: Currently back in sinus rhythm History of fungemia /fungal urinary tract infection Status post right hand hematoma: Status post I&D Renal failure on dialysis Hypertension Dementia Anemia AI Recommendations: cont beta-farrah as tolerated. Dialysis as per renal team Antibiotic as per ID and internal medicine DVT prophylaxis as per internal medicine Patient is currently optimized medical therapy Thank you for his referral. We will continue to follow along with you as needed CHRISTEN ESCOBEDO MD [facility] CHRISTEN ESCOBEDO MD Feb 01, 2019 11:01
[2019-02-01] MEDS ORDERED: DEXTROSE 50% 50 ML SYRINGE IV PRN ×2 (12:30)
[2019-02-01] MEDS ORDERED: GLUCOSE GEL 15 GRAM TUBE BUCCAL PRN (12:30)
[2019-02-01] MEDS ORDERED: GLUCOSE GEL 15 GRAM TUBE PO PRN ×2 (12:30)
[2019-02-01] MEDS: MEROPENEM 500MG/50 ML (PMX) 50 ML IVPB SCH (12:30)
[2019-02-01] MEDS ORDERED: GLUCAGON 1 MG INJ IM PRN (12:30)
[2019-02-01] MEDS ORDERED: ALBUMIN HUMAN 25% 100 ML IV PRN (13:30)
[2019-02-01] MEDS ORDERED: SODIUM CHLORIDE 0.9% 1L BAG IV PRN (13:30)
--- NOTE | 2019-02-01 14:25 | PN ---
DATE: 02/01/2019 SUBJECTIVE: The patient was seen status post transfusion. H and H still remains low. White count h as improved. Urine studies were ordered which suggest urinary tract infection and the patient was st arted on broad-spectrum antibiotics. She was found to have +2 leukocyte esterase and WBC greater carie n 182. White count now improved. PHYSICAL EXAMINATION: VITAL SIGNS: Temperature 98.7, pulse 87, respirations 18, blood pressure 129/63, saturation 96% on r oom air. HEENT: The patient is frail, pale. CARDIOVASCULAR: S1, S2, regular rate. LUNGS: Clear. ABDOMEN: Soft, nontender. G-tube in place. EXTREMITIES: No clubbing, cyanosis or edema. Left leg in a special brace. LABORATORY DATA: White count 12.8 improved, hemoglobin remains low at 7.7 postoperatively, hematocri t 23, platelet count of 245, neutrophils 86%, lymphs 3%. Chemistry: Sodium 140, potassium 3.9, chlo ride 103, bicarbonate 25, BUN is 70, creatinine 2.27, glucose of 125. Urinalysis is as above. The p robbie's urine culture already shows gram-negative rods, but only 10,000 to 20,000, but the UA was ve ry remarkably positive. MEDICATIONS: The patient is on: 1. P.r.n. albumin. 2. Hypoglycemia protocol. 3. Levemir 4 units at bedtime. 4. Merrem dose per pharmacy. 5. Vancomycin dose per pharmacy. 6. Morphine p.r.n. 7. [place] p.r.n. 8. Depakote 250 q.8. 9. Colace 100 b.i.d. 10. Ferrous sulfate 300 b.i.d. 11. Folic acid 1 mg daily. 12. Tradjenta 5 mg daily. 13. Prevacid 30 mg daily. 14. Heparin 5000 units as directed. 15. Hydralazine 25 q.8. 16. Heparin 5000 q.12. 17. Norvasc 5 mg b.i.d. 18. Lopressor 50 b.i.d. 19. Seroquel 25 b.i.d. 20. Senna 1 tab b.i.d. 21. Zofran. 22. Tylenol. 23. Milk of Magnesia. 24. Ativan. 25. MiraLax p.r.n. ASSESSMENT AND PLAN: This is an 83-year-old [place] female, very ill with multiple medical issues i nclude diabetes mellitus, end-stage renal disease, dementia, chronic kidney disease on dialysis, maln utrition, dysphagia, G-tube feeding, anemia, history of aspiration pneumonia, status post recent tanya tment for fungemia, urinary tract infection, bacteremia, line sepsis presented with left distal femur fracture, status post repair. 1. Respiratory: Lungs are clear. O2 support as needed. 2. Cardiovascular: Continue above meds. Blood pressure is currently controlled. Remains on deep v enous thrombosis prophylaxis with heparin. 3. Anemia postoperatively blood loss, transfusion another 1 unit of PRBC will be given. 4. Malnutrition. Continue G-tube feeding. 5. The patient will be placed on deep vein thrombosis prophylaxis and gastrointestinal prophylaxis. 6. Dysphagia, tolerating G-tube feeding well at 30 mL an hour. 7. Diabetes mellitus. Continue low-dose Levemir and insulin sliding scale. 8. Infectious disease: The patient is with evidence of urinary tract infection. Follow up urine cu lture results. Continue above antibiotics. White count has improved. 9. End-stage renal disease. Plan for dialysis per nephrology. 10. Hopefully disposition soon once cultures are back after transfusion. Overall improving. Dictated By: DYLON HULL/MADAN Conf#: [id number] DID#: [id number] CC: CESARIO RIVERA MD;*EndCC*
--- NOTE | 2019-02-01 14:45 | CONS ---
Assessment/Plan Assessment/Plan Assessment/Plan (Daily) 1 Left knee effusion,acuute oblique moderately displaced distal femur fracture s/p ORIF 3. End-stage renal disease. 4. Hypertension. 5. Diabetes mellitus. 6. G-tube placement. 7. Atrial fibrillation. 8. History of [employer] bleed in the past. 9. History of multiple sepsis including pneumonia and fungal sepsis. 10. Anemia. 11. Blood transfusion. 12. Hyponatremia. 13. Malnutrition. 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 15. Hypoalbuminemia. 16 Acute blood loss anemia 17 Leukocytosis / Sepsis due to UTI Plan - cw HD MWF, HD today, off schedule now as BP better today - abx for UTI per ID - 1 UNIT PRBC - Avoid nephrotoxins - Renally dose all meds Consultation Date/Type/Reason Admit Date/Time Jan 26, 2019 at 17:14 Initial Consult Date Requesting Provider: DYLON WALLS MD Date/Time of Note DATE: 02/01/19 TIME: 14:43 24 HR Interval Summary Free Text/Dictation BP btter today WBC improving Getting 1 unit PRBC Exam/Review of Systems Exam Vitals Vital Signs Date Temp Pulse Resp B/P (MAP) Pulse Ox O2 O2 Flow FiO2 Time Delivery Rate 02/01/19 98.4 90 17 132/63 97 Room Air 14:00 (86) 01/29/19 2.0 16:11 Intake and Output 01/31/19 01/31/19 02/01/19 1515:00 23:00 07:00 IntakeIntake Total 760 ml 860 ml 410 ml BalanceBalance 760 ml 860 ml 410 ml Exam Awake and alert permacath G tube clear lungs s/p ORIF surgical site seen with no active oozing Results Result Diagram: 02/01/19 0531 02/01/19 0531 Results 24hrs Laboratory Tests Test 01/31/19 20:12 02/01/19 04:43 02/01/19 05:31 02/01/19 08:47 Bedside Glucose 234 H 146 Phosphorus Level 2.8 Magnesium Level 2.6 H White Blood Count 12.8 #H Red Blood Count 2.69 L Hemoglobin 7.7 L Hematocrit 23.3 L Mean Corpuscular 86.6 Volume Mean Corpuscular 28.6 L Hemoglobin Mean Corpuscular 33.0 Hemoglobin Concent Red Cell 16.1 H Distribution Width Platelet Count 245 Mean Platelet Volume 11.1 H Immature 1.700 H Granulocytes % Neutrophils % 85.8 H Lymphocytes % 3.4 L Monocytes % 7.8 Eosinophils % 1.0 Basophils % 0.3 Nucleated Red Blood 0.3 H Cells % Immature 0.220 H Granulocytes # Neutrophils # 11.0 H Lymphocytes # 0.4 L Monocytes # 1.0 H Eosinophils # 0.1 Basophils # 0.0 Nucleated Red Blood 0.0 Cells # Sodium Level 140 Potassium Level 3.9 Chloride Level 103 Carbon Dioxide Level 25 Anion Gap 12 Blood Urea Nitrogen 70 H Creatinine 2.27 H Est Glomerular Filtrat Rate mL/min Glucose Level 125 # Calcium Level 8.5 Medications Medication Current Medications IV Flush (NS 3 ml) 3 ml PER PROTOCOL IV Last administered on 01/30/19at 23:54; Admin Dose 3 ML; Start 01/26/19 at 17:30 Ondansetron HCl (Zofran Inj) 4 mg Q6H PRN IV NAUSEA/VOMITING; Start 01/26/19 at 17:30 Acetaminophen (Tylenol Tab) 650 mg Q6H PRN PO .PAIN 1-3 OR TEMP; Start 01/26/19 at 17:30 Acetaminophen/ Hydrocodone Bitart ([place] (5/325)) 1 tab Q6H PRN PO .MOD PAIN 4-6; Start 01/26/19 at 17:30 Morphine Sulfate (morphine) 2 mg Q4H PRN IV .SEVERE PAIN 7-10; Start 01/26/19 at 17:30 Magnesium Hydroxide (Milk Of Mag) 30 ml DAILY PRN PO .CONSTIPATION; Start 01/26/19 at 17:30 Heparin Sodium (Porcine) (Heparin (5000 Units/1ml)) 5,000 unit Q12 SC Last administered on 02/01/19at 08:51; Admin Dose 5,000 UNIT; Start 01/26/19 at 21:00 Acetaminophen (Tylenol Tab) 650 mg Q6H PRN GTB PAIN LEVEL 1-10/10; Start 01/26/19 at 17:30 Folic Acid (Folic Acid) 1 mg DAILY GTB Last administered on 02/01/19at 08:52; Admin Dose 1 MG; Start 01/27/19 at 09:00 Hydralazine HCl (Apresoline) 25 mg Q8 PO Last administered on 02/01/19at 05:45; Admin Dose 25 MG; Start 01/26/19 at 22:00 Linagliptin (Tradjenta) 5 mg DAILY GTB Last administered on 02/01/19 08:57; Admin Dose 5 MG; Start 01/27/19 at 09:00 Lorazepam (Ativan) 1 mg HS PRN GTB ANXIETY Last administered on 01/28/19 22:27; Admin Dose 1 MG; Start 01/26/19 at 17:30 Metoprolol Tartrate (Lopressor) 50 mg BID GTB Last administered on 02/01/19 08:53; Admin Dose 50 MG; Start 01/26/19 at 21:00 Polyethylene Glycol (Miralax) 17 gm Q24H GTB Last administered on 01/31/19 17:33; Admin Dose 17 GM; Start 01/26/19 at 17:30 Quetiapine Fumarate (Seroquel) 25 mg BID GTB Last administered on 02/01/19 08:52; Admin Dose 25 MG; Start 01/26/19 at 21:00 Senna (Senokot) 1 tab BID PO Last administered on 02/01/19 08:52; Admin Dose 1 TAB; Start 01/26/19 at 21:00 Lansoprazole (Prevacid) 30 mg DAILY@06 GTB Last administered on 02/01/19 05:45; Admin Dose 30 MG; Start 01/27/19 at 06:00 Heparin Sodium (Porcine) (Heparin (1000 Units/ml)) 4,000 unit AFTER DIALYSIS CATHETER Last administered on 01/28/19 18:37; Admin Dose 4,000 UNIT; Start 01/27/19 at 00:30 Miscellaneous Information (Pending Santyl Order For Wound Care) This patient lane... PRN PRN XX WOUND CARE; Start 01/27/19 at 04:30 Docusate Sodium (Colace Liquid Cup) 100 mg BID GTB Last administered on 02/01/19 08:52; Admin Dose 100 MG; Start 01/27/19 at 10:00 Ferrous Sulfate (Feosol Liquid Cup) 300 mg BID NGT Last administered on 02/01/19 08:52; Admin Dose 300 MG; Start 01/27/19 at 10:00 Valproate Sodium (Depakene Liquid Cup) 250 mg Q8 PO Last administered on at 13:52; Admin Dose 250 MG; Start 01/27/19 at 22:00 IV Flush (NS 3 ml) 3 ml per protocol IV ; Start 01/29/19 at 15:30 Morphine Sulfate (morphine) 2 mg Q3H PRN IV PAIN; Start 01/29/19 at 16:00 Acetaminophen/ Hydrocodone Bitart ([place] (5/325)) 1 tab Q3H PRN PO MODERATE PAIN LEVEL 4-6 Last administered on 02/01/19at 04:19; Admin Dose 1 TAB; Start 01/29/19 at 16:00 Vancomycin HCl (Vanco Iv Per Pharmacy) VANCOMYCIN PER PHARMACY PER PROTOCOL XX ; Start 01/31/19 at 10:30 Meropenem/Sodium Chloride 50 ml @ 100 mls/hr Q24H IVPB Last administered on 02/01/19at 12:30; Admin Dose 100 MLS/HR; Start 01/31/19 at 13:00 Insulin Detemir (Levemir) 4 units DAILY@2000 SC Last administered on 01/31/19at 20:17; Admin Dose 4 UNITS; Start 01/31/19 at 20:00 Miscellaneous Information (*Rx Drug Level Order Reminder*) 1 ONCE ONCE XX ; Start 02/02/19 at 05:00; Stop 02/02/19 at 05:01 Miscellaneous Information 1 ea NOTE XX ; Start 02/01/19 at 12:30 Glucose (Glutose) 15 gm Q15M PRN PO DECREASED GLUCOSE; Start 02/01/19 at 12:30 Glucose (Glutose) 22.5 gm Q15M PRN PO DECREASED GLUCOSE; Start 02/01/19 at 12:30 Dextrose (D50w Syringe) 25 ml Q15M PRN IV DECREASED GLUCOSE; Start 02/01/19 at 12:30 Dextrose (D50w Syringe) 50 ml Q15M PRN IV DECREASED GLUCOSE; Start 02/01/19 at 12:30 Glucagon (Glucagen) 1 mg Q15M PRN IM DECREASED GLUCOSE; Start 02/01/19 at 12:30 Glucose (Glutose) 15 gm Q15M PRN BUCCAL DECREASED GLUCOSE; Start 02/01/19 at 12:30 Albumin Human 100 ml @ 100 mls/hr WITH DIALYSIS PRN IV SBP <90 DURING DIALYSIS; Start 3/26/19 at 13:30 Sodium Chloride (NS) -To prime the dialy... DIRECTED FOR HD PRN IV HD; Start 02/01/19 at 13:30 Amlodipine Besylate (Norvasc) 2.5 mg BID GTB ; Start 02/01/19 at 21:00 Insulin Aspart (Novolog Insulin Pen) NOVOLOG *MILD* ALGORI... Q6 SC ; Start 02/01/19 at 18:00 JOSE RAUL ANDREWS MD Feb 01, 2019 14:45
--- NOTE | 2019-02-01 15:55 | CONS ---
Assessment/Plan Assessment/Plan Hospital Course (Demo Recall) Patient is in hemodialysis, awake looks comfortable, no fevers overnight WBC 12.8 H&H 7.7 and 23.3 platelets 245 neutrophils 85.8 Microbiology: Urine culture growing gram-negative rods Chest x-ray yesterday revealed no evidence for active cardiopulmonary disease Antimicrobials: Meropenem Indwelling: Left chest permacath, PEG Physical examination: Chronically ill-appearing elderly woman who is awake, confused, in no distress. Head atraumatic normocephalic. Neck is supple. Chest rise symmetrical breath sounds diminished bases. Heart: S1-S2. Abdomen soft bowel sounds present, right upper extremity Armani wrapped Assessment: 1. Recurrent UTI 2. Left femoral fracture, status post open reduction internal fixation 01/29/19 3. End-stage renal disease, hemodialysis dependent 4. Dementia 5. Diabetes 6. Status post fungemia and VRE bacteremia Plan: Patient remained stable, continue present care and antibiotics, await for final cultures Consultation Date/Type/Reason Admit Date/Time Jan 26, 2019 at 17:14 Initial Consult Date 01/28/19 Type of Consult id Requesting Provider: DYLON WALLS MD Date/Time of Note DATE: 02/01/19 TIME: 15:52 Exam/Review of Systems Exam Vitals Vital Signs Date Temp Pulse Resp B/P (MAP) Pulse Ox O2 O2 Flow FiO2 Time Delivery Rate 02/01/19 96 15:40 02/01/19 20 124/52 97 Room Air 14:20 (76) 02/01/19 98.4 14:00 01/29/19 2.0 16:11 Intake and Output 01/31/19 01/31/19 02/01/19 1515:00 23:00 07:00 IntakeIntake Total 760 ml 860 ml 410 ml BalanceBalance 760 ml 860 ml 410 ml Results Result Diagram: 02/01/19 0531 02/01/19 0531 Results 24hrs Laboratory Tests Test 01/31/19 20:12 02/01/19 04:43 02/01/19 05:31 02/01/19 08:47 Bedside Glucose 234 H 146 Phosphorus Level 2.8 Magnesium Level 2.6 H White Blood Count 12.8 #H Red Blood Count 2.69 L Hemoglobin 7.7 L Hematocrit 23.3 L Mean Corpuscular 86.6 Volume Mean Corpuscular 28.6 L Hemoglobin Mean Corpuscular 33.0 Hemoglobin Concent Red Cell 16.1 H Distribution Width Platelet Count 245 Mean Platelet Volume 11.1 H Immature 1.700 H Granulocytes % Neutrophils % 85.8 H Lymphocytes % 3.4 L Monocytes % 7.8 Eosinophils % 1.0 Basophils % 0.3 Nucleated Red Blood 0.3 H Cells % Immature 0.220 H Granulocytes # Neutrophils # 11.0 H Lymphocytes # 0.4 L Monocytes # 1.0 H Eosinophils # 0.1 Basophils # 0.0 Nucleated Red Blood 0.0 Cells # Sodium Level 140 Potassium Level 3.9 Chloride Level 103 Carbon Dioxide Level 25 Anion Gap 12 Blood Urea Nitrogen 70 H Creatinine 2.27 H Est Glomerular Filtrat Rate mL/min Glucose Level 125 # Calcium Level 8.5 Medications Medication Current Medications IV Flush (NS 3 ml) 3 ml PER PROTOCOL IV Last administered on 01/30/19at 23:54; Admin Dose 3 ML; Start 01/26/19 at 17:30 Ondansetron HCl (Zofran Inj) 4 mg Q6H PRN IV NAUSEA/VOMITING; Start 01/26/19 at 17:30 Acetaminophen (Tylenol Tab) 650 mg Q6H PRN PO .PAIN 1-3 OR TEMP; Start 01/26/19 at 17:30 Acetaminophen/ Hydrocodone Bitart ([place] (5/325)) 1 tab Q6H PRN PO .MOD PAIN 4- 6; Start 01/26/19 at 17:30 Morphine Sulfate (morphine) 2 mg Q4H PRN IV .SEVERE PAIN 7-10; Start 01/26/19 at 17:30 Magnesium Hydroxide (Milk Of Mag) 30 ml DAILY PRN PO .CONSTIPATION; Start 01/26/19 at 17:30 Heparin Sodium (Porcine) (Heparin (5000 Units/1ml)) 5,000 unit Q12 SC Last administered on 02/01/19at 08:51; Admin Dose 5,000 UNIT; Start 01/26/19 at 21:00 Acetaminophen (Tylenol Tab) 650 mg Q6H PRN GTB PAIN LEVEL 1-10/10; Start 01/26/19 at 17:30 Folic Acid (Folic Acid) 1 mg DAILY GTB Last administered on 02/01/19at 08:52; Admin Dose 1 MG; Start 01/27/19 at 09:00 Hydralazine HCl (Apresoline) 25 mg Q8 PO Last administered on 02/01/19 05:45; Admin Dose 25 MG; Start 01/26/19 at 22:00 Linagliptin (Tradjenta) 5 mg DAILY GTB Last administered on 02/01/19 08:57; Admin Dose 5 MG; Start 01/27/19 at 09:00 Lorazepam (Ativan) 1 mg HS PRN GTB ANXIETY Last administered on 01/28/19 22:27; Admin Dose 1 MG; Start 01/26/19 at 17:30 Metoprolol Tartrate (Lopressor) 50 mg BID GTB Last administered on 02/01/19 08:53; Admin Dose 50 MG; Start 01/26/19 at 21:00 Polyethylene Glycol (Miralax) 17 gm Q24H GTB Last administered on 01/31/19 17:33; Admin Dose 17 GM; Start 01/26/19 at 17:30 Quetiapine Fumarate (Seroquel) 25 mg BID GTB Last administered on 02/01/19 08:52; Admin Dose 25 MG; Start 01/26/19 at 21:00 Senna (Senokot) 1 tab BID PO Last administered on 02/01/19 08:52; Admin Dose 1 TAB; Start 01/26/19 at 21:00 Lansoprazole (Prevacid) 30 mg DAILY@06 GTB Last administered on 02/01/19 05:45; Admin Dose 30 MG; Start 01/27/19 at 06:00 Heparin Sodium (Porcine) (Heparin (1000 Units/ml)) 4,000 unit AFTER DIALYSIS CATHETER Last administered on 01/28/19 18:37; Admin Dose 4,000 UNIT; Start 01/27/19 at 00:30 Miscellaneous Information (Pending Santyl Order For Wound Care) This patient lane... PRN PRN XX WOUND CARE; Start 01/27/19 at 04:30 Docusate Sodium (Colace Liquid Cup) 100 mg BID GTB Last administered on 02/01/19 08:52; Admin Dose 100 MG; Start 01/27/19 at 10:00 Ferrous Sulfate (Feosol Liquid Cup) 300 mg BID NGT Last administered on 02/01/19 08:52; Admin Dose 300 MG; Start 01/27/19 at 10:00 Valproate Sodium (Depakene Liquid Cup) 250 mg Q8 PO Last administered on 02/01/19at 13:52; Admin Dose 250 MG; Start 01/27/19 at 22:00 IV Flush (NS 3 ml) 3 ml per protocol IV ; Start 01/29/19 at 15:30 Morphine Sulfate (morphine) 2 mg Q3H PRN IV PAIN; Start 01/29/19 at 16:00 Acetaminophen/ Hydrocodone Bitart ([place] (5/325)) 1 tab Q3H PRN PO MODERATE PAIN LEVEL 4-6 Last administered on 02/01/19at 04:19; Admin Dose 1 TAB; Start 01/29/19 at 16:00 Vancomycin HCl (Vanco Iv Per Pharmacy) VANCOMYCIN PER PHARMACY PER PROTOCOL XX ; Start 01/31/19 at 10:30 Meropenem/Sodium Chloride 50 ml @ 100 mls/hr Q24H IVPB Last administered on 02/01/19at 12:30; Admin Dose 100 MLS/HR; Start 01/31/19 at 13:00 Insulin Detemir (Levemir) 4 units DAILY@2000 SC Last administered on 01/31/19at 20:17; Admin Dose 4 UNITS; Start 01/31/19 at 20:00 Miscellaneous Information (*Rx Drug Level Order Reminder*) 1 ONCE ONCE XX ; Start 02/02/19 at 05:00; Stop 02/02/19 at 05:01 Miscellaneous Information 1 ea NOTE XX ; Start 02/01/19 at 12:30 Glucose (Glutose) 15 gm Q15M PRN PO DECREASED GLUCOSE; Start 02/01/19 at 12:30 Glucose (Glutose) 22.5 gm Q15M PRN PO DECREASED GLUCOSE; Start 02/01/19 at 12:30 Dextrose (D50w Syringe) 25 ml Q15M PRN IV DECREASED GLUCOSE; Start 02/01/19 at 12:30 Dextrose (D50w Syringe) 50 ml Q15M PRN IV DECREASED GLUCOSE; Start 02/01/19 at 12:30 Glucagon (Glucagen) 1 mg Q15M PRN IM DECREASED GLUCOSE; Start 02/01/19 at 12:30 Glucose (Glutose) 15 gm Q15M PRN BUCCAL DECREASED GLUCOSE; Start 02/01/19 at 12:30 Albumin Human 100 ml @ 100 mls/hr WITH DIALYSIS PRN IV SBP <90 DURING DIALYSIS; Start 02/01/19 at 13:30 Sodium Chloride (NS) -To prime the dialy... DIRECTED FOR HD PRN IV HD; Start 02/01/19 at 13:30 Amlodipine Besylate (Norvasc) 2.5 mg BID GTB ; Start 02/01/19 at 21:00 Insulin Aspart (Novolog Insulin Pen) NOVOLOG *MILD* ALGORI... Q6 SC ; Start 02/01/19 at 18:00 PHYLICIA HOLCOMB NP Feb 01, 2019 15:55
[2019-02-01] MEDS: HEPARIN 1000 UNITS/ML 10 ML INJ CATHETER SCH (16:53)
[2019-02-01] MEDS: INSULIN ASPART [NOVOLOG] 3 ML PEN SC SCH (17:32)
[2019-02-01] MEDS: POLYETHYLENE GLYCOL 17 GM PACKET GTB SCH (17:33)
[2019-02-01] MEDS ORDERED: INSULIN ASPART [NOVOLOG] 3 ML PEN SC SCH (18:05)
[2019-02-01] MEDS: INSULIN DETEMIR [LEVEMIR] (100 UNITS/ML) SYG SC SCH (20:09)
[2019-02-01] MEDS: AMLODIPINE 2.5 MG TAB GTB SCH (20:59)
[2019-02-02] VITALS (11 sets, daily range): BP systolic 119–148; BP diastolic 57–71; PULSE 80–97; RESP 16–20
[2019-02-02] MEDS: INSULIN ASPART [NOVOLOG] 3 ML PEN SC SCH ×4 (00:37→18:18)
[2019-02-02] MEDS: LANSOPRAZOLE 30 MG CAP GTB SCH (06:20)
[2019-02-02] MEDS: VALPROIC ACID LIQUID CUP 250 MG/5 ML CUP PO SCH ×2 (06:20→13:34)
[2019-02-02] MEDS: FERROUS SULFATE 60 MG/ML 5ML CUP NGT SCH ×2 (08:58→20:03)
[2019-02-02] MEDS: QUETIAPINE 25 MG TAB GTB SCH ×2 (08:58→20:03)
[2019-02-02] MEDS: SENNA TAB PO SCH ×2 (08:58→20:04)
[2019-02-02] MEDS: DOCUSATE SODIUM 10 MG/ML (10ML CUP) GTB SCH ×2 (08:58→20:03)
[2019-02-02] MEDS: FOLIC ACID 1 MG TAB GTB SCH (08:58)
[2019-02-02] MEDS: HEPARIN 5,000 UNIT/1 ML VIAL SC SCH (08:59)
[2019-02-02] MEDS: BALSAM PERU/CASTOR OIL 60 GM TUBE TOP SCH (09:01)
[2019-02-02] MEDS: LINAGLIPTIN 5 MG TABLET GTB SCH (09:04)
[2019-02-02] MEDS: METOPROLOL 50 MG TAB GTB SCH ×2 (09:28→20:03)
[2019-02-02] MEDS: AMLODIPINE 2.5 MG TAB GTB SCH ×2 (09:28→20:03)
--- NOTE | 2019-02-02 10:11 | CONS ---
Consult Date/Type/Reason Admit Date/Time Jan 26, 2019 at 17:14 Initial Consult Date 01/28/19 Type of Consultation: cv Requesting Provider: DYLON WALLS MD Date/Time of Note DATE: 02/02/19 TIME: 10:11 Subjective cardiology S: D/W staff pt is still confused and is not able to provide any reliable history to me no report of chest pain or pressure O: General: Elderly frail female in no acute distress HEENT: NC/AT. Pupils are equal NECK: NO JVD. no stridor. CV: RRR. systolic murmur; no gallop or rubs. PULM: no wheezing or rhonchi. GI: SOFT, NT, ND, no rebound or guarding neuro: Sleeping comfortably in the Psych: calm now rectal: deferred EKG done 01/26/2019 which was personally reviewed showed normal sinus rhythm nonspecific T wave abnormalities review of old chart shows ECHO done Oct 2018: Normal left ventricular systolic function. Normal left ventricular cavity size. Moderate concentric left ventricular hypertrophy. Ejection fraction is visually estimated at 65 %. Abnormal Diastolic Function. Mitral valve leaflets appear moderately thickened. Moderate mitral annular calcification. Trace mitral regurgitation. Aortic valve not well visualized. No hemodynamically significant aortic stenosis by doppler. Aortic sclerosis without significant stenosis. Aortic cusps appear mildly calcified. Mild to moderate aortic valve regurgitation. Estimated peak PA systolic pressure 40 mmHg. Tricuspid valve appears moderately thickened. There is mild tricuspid regurg Objective Vitals Vital Signs Date Temp Pulse Resp B/P (MAP) Pulse Ox O2 O2 Flow FiO2 Time Delivery Rate 02/02/19 98.9 18 132/61 97 Room Air 10:00 (84) 02/02/19 97 08:16 01/29/19 2.0 16:11 Intake and Output 02/01/19 02/01/19 02/02/19 1515:00 23:00 07:00 IntakeIntake Total 50 ml 580 ml 410 ml OutputOutput Total 2900 ml BalanceBalance 50 ml -2320 ml 410 ml Results/Medications Result Diagram: 02/02/19 0429 02/02/19 0429 Results 24 hrs Laboratory Tests Test 02/01/19 17:28 02/01/19 20:08 02/02/19 00:33 02/02/19 04:29 Bedside Glucose 148 218 167 White Blood Count 10.9 H Red Blood Count 3.54 #L Hemoglobin 10.1 #L Hematocrit 30.6 #L Mean Corpuscular 86.4 Volume Mean Corpuscular 28.5 L Hemoglobin Mean Corpuscular 33.0 Hemoglobin Concent Red Cell 15.9 H Distribution Width Platelet Count 283 Mean Platelet Volume 11.3 H Immature 2.200 H Granulocytes % Neutrophils % 81.1 H Lymphocytes % 5.3 L Monocytes % 9.8 Eosinophils % 1.1 Basophils % 0.5 Nucleated Red Blood 0.5 H Cells % Immature 0.240 H Granulocytes # Neutrophils # 8.9 H Lymphocytes # 0.6 L Monocytes # 1.1 H Eosinophils # 0.1 Basophils # 0.1 Nucleated Red Blood 0.1 H Cells # Sodium Level 142 Potassium Level 4.0 Chloride Level 106 Carbon Dioxide Level 28 Anion Gap 8 Blood Urea Nitrogen 42 #H Creatinine 1.56 H Est Glomerular Filtrat Rate mL/min Glucose Level 135 Calcium Level 9.2 Phosphorus Level 1.6 #L Magnesium Level 2.6 H Random Vancomycin 12.2 Level Test 02/02/19 06:35 02/02/19 09:04 Bedside Glucose 174 179 Home Meds Reported Medications Guaifenesin-Dextromethorphan* (Robitussin* DM) 100MG/10MG/5ML Syrup, 5 ML GTB Q4H, ML 01/26/19 Metoclopramide* (Reglan*) 5 Mg Tablet, 5 MG GTB Q6H PRN for NAUSEA AND OR VOMITING, TAB 01/26/19 Na Phos,M-B/Na Phos,Di-Ba (Fleet Enema Extra) Unknown Strength Enema, 1 APPLIC RC Q2D, ENEMA 01/26/19 Bisacodyl* (Bisacodyl*) 10 Mg Supp, 10 MG MT DAILY, SUPP 01/26/19 Magnesium Hydroxide* (Milk Of Magnesia*) 400 Mg/5 Ml Oral.susp, 30 ML GTB QHS, ML 01/26/19 Insulin Glargine* (Lantus*) 100 Unit/Ml Soln, 4 UNIT SC QHS, #1 VIAL 01/26/19 Insulin Aspart* (Novolog Insulin Pen*) 100 Unit/Ml Soln, 0 SC .SLIDING SCALE AC, EA IF BS 0-150=0 UNIT,151-200=1 UNIT,201-250=2 UNITS,251-300=3 UNITS,301-350=4 UNITS,351-400=5 UNITS. IF >400=6 UNITS AND CALL MD IF<60=ORANGE JUICE OR GLUCOSE GEL AND CALL MD 01/26/19 Olanzapine* (Zyprexa*) 5 Mg Tablet, 5 MG GTB DAILY, #30 TAB 01/26/19 Lorazepam* (Lorazepam*) 0.5 Mg Tablet, 0.5 MG GTB HS PRN for ANXIETY, TAB 01/26/19 Amino Acids/Protein Hydrolys (PRO-STAT LIQUID) 30 Ml Liquid.pkt, 30 ML GTB DAILY SUGAR FREE 01/26/19 Multivit &Minerals/Ferrous Fum (MULTIVITAMIN LIQUID) 9 Mg/15 Ml Liquid, 5 ML GTB DAILY 01/26/19 Ascorbic Acid (Vitamin C) 500 Mg Tab, 500 MG GTB DAILY, TAB 01/26/19 Ferrous Sulfate* (Ferrous Sulfate*) 220 Mg/5 Ml Solution, 7.5 ML GTB DAILY, ML 01/26/19 Cran/Vitc/Mannose/Inulin/Brom (Uti-Stat Liquid) 3,875 Mg/30 Ml Liquid, 30 MG GTB BID 01/26/19 Cranberry Extract (Cranberry) 425 Mg Capsule, 425 MG GTB DAILY, CAP 01/26/19 Sevelamer Carbonate* (Renvela*) 800 Mg Tablet, 1.6 GM GTB WITH MEALS, TAB 01/26/19 Metoprolol Tartrate* (Lopressor*) 100 Mg Tablet, 100 MG GTB BID, #60 TAB 01/26/19 Ipratropium-Albuterol (Ipratropium-Albuterol) 0.5-3 Mg/3 Ml Ampul.neb, 3 ML INHALATION Q6, #30 VIAL 01/26/19 Aspirin* (Aspirin* Chew) 81 Mg Tab.chew, 81 MG GTB DAILY, TAB.CHEW 01/26/19 [Nephro-Roque] No Conflict Check, 1 TAB GTB DAILY 01/26/19 Pantoprazole* (Pantoprazole*) 40 Mg Tablet.dr, 40 MG GTB AC BREAKFAST DINNER, T AB 01/26/19 Atorvastatin* (Atorvastatin*) 40 Mg Tablet, 40 MG GTB QHS, #30 TAB 01/26/19 Acetaminophen* (Acetaminophen*) 500 MG Extra Strength Tablet, 1000 MG GTB Q4H PRN for PAIN LEVEL 4-6/10, TAB 01/26/19 Acetaminophen* (Acetaminophen*) 500 MG Extra Strength Tablet, 1000 MG GTB DAILY PRN for PAIN AND OR ELEVATED TEMP, TAB 01/26/19 Acetaminophen* (Acetaminophen*) 325 Mg Tablet, 325 MG GTB Q4H PRN for FOR FEVER 100AND ABOVE, #30 TAB 01/26/19 Lansoprazole* (Lansoprazole*) 30 Mg Capsule.dr, 30 MG PO QAM, CAP 11/16/18 Hydralazine Hcl* (Hydralazine Hcl*) 25 Mg Tab, 25 MG PO Q8, #90 TAB 11/16/18 Valproate Sodium (Valproic Acid) 250 Mg/5 Ml Solution, 250 MG PO Q8, ML 11/16/18 Ondansetron Hcl* (Zofran*) 4 Mg Tab, 4 MG GTB Q4H PRN for NAUSEA AND OR VOMITING, TAB 10/16/18 Linagliptin (TRADJENTA) 5 Mg Tablet, 5 MG GTB DAILY, TAB 10/16/18 Polyethylene Glycol* (Miralax*) 17 Gm Powd.pack, 17 GM GTB Q24H, #30 PACKET 10/16/18 Folic Acid* (Folic Acid*) 1 Mg Tablet, 1 MG GTB DAILY, TAB 10/16/18 Docusate Sodium* (Colace*) 100 Mg Capsule, 100 MG GTB DAILY, #30 CAP 10/16/18 Amlodipine Besylate* (Norvasc*) 5 Mg Tablet, 5 MG GTB BID, TAB TAKE Q TUE,ANDREW,SAT FOR HTN, HOLD FOR SBP<110 OR MT<60 10/16/18 Acetaminophen* (Acetaminophen*) 650 Mg Tablet, 650 MG GTB Q6H PRN for PAIN LEVEL 1-10/10, #30 TAB 10/16/18 Discontinued Reported Medications Sennosides* (Senna Lax*) 8.6 Mg Tablet, 1 TAB PO BID, TAB 11/16/18 Sevelamer Carbonate* (Renvela*) 0.8 Gm Powd.pack, 0.8 GM PO WITH MEALS, PACKET 11/16/18 Ferrous Sulfate* (Ferrous Sulfate*) 325 Mg Tabec, 325 MG PO BID for anemia, TAB 11/16/18 Insulin Aspart* (Novolog Insulin Pen*) 100 Unit/Ml Soln, 0 SC .SLIDING SCALE AC, EA IF BS 160-200=2 UNITS,201-250=4 UNITS,251-300=8 UNITS,301-350=12 UNITS;351-400=16 UNITS THEN CALL MD. 10/16/18 Quetiapine Fumarate* (Seroquel*) 25 Mg Tablet, 25 MG GTB BID, #60 TAB 10/16/18 [Nephro-Roque] No Conflict Check, 0.8 MG GTB DAILY 10/16/18 Metoprolol Tartrate* (Lopressor*) 50 Mg Tab, 50 MG GTB DAILY, #60 TAB Q MON,WED,FRI,SUN,HOLD FOR SBP<110 OR MT<60 10/16/18 Metoprolol Tartrate* (Lopressor*) 50 Mg Tab, 50 MG GTB BID, #60 TAB QTUE,ANDREW,SAT,HOLD FOR SBP<110 OR MT<60 10/16/18 Linaclotide (LINZESS) 145 Mcg Capsule, 145 MCG GTB DAILY, #30 CAP 10/16/18 Ipratropium-Albuterol (Ipratropium-Albuterol) 0.5-3 Mg/3 Ml Ampul.neb, 3 ML INHALATION Q6, #30 VIAL FOR 14 DAYS,STOP DATE 10/17/18 10/16/18 Hydralazine Hcl* (Hydralazine Hcl*) 25 Mg Tab, 25 MG GTB DAILY, #60 TAB Q TUE,ANDREW,SAT,HOLD IF SBP<110 OR MT<60 10/16/18 Lorazepam* (Lorazepam*) 1 Mg Tablet, 1 MG GTB HS PRN for ANXIETY, #30 TAB Q TUE,ANDREW,SAT 10/16/18 Medications Current Medications IV Flush (NS 3 ml) 3 ml PER PROTOCOL IV Last administered on 01/30/19at 23:54; Admin Dose 3 ML; Start 01/26/19 at 17:30 Ondansetron HCl (Zofran Inj) 4 mg Q6H PRN IV NAUSEA/VOMITING; Start 01/26/19 at 17:30 Acetaminophen (Tylenol Tab) 650 mg Q6H PRN PO .PAIN 1-3 OR TEMP; Start 01/26/19 at 17:30 Acetaminophen/ Hydrocodone Bitart ([place] (5/325)) 1 tab Q6H PRN PO .MOD PAIN 4- 6; Start 01/26/19 at 17:30 Morphine Sulfate (morphine) 2 mg Q4H PRN IV .SEVERE PAIN 7-10; Start 01/26/19 at 17:30 Magnesium Hydroxide (Milk Of Mag) 30 ml DAILY PRN PO .CONSTIPATION; Start 01/26/19 at 17:30 Heparin Sodium (Porcine) (Heparin (5000 Units/1ml)) 5,000 unit Q12 SC Last administered on 02/02/19 08:59; Admin Dose 5,000 UNIT; Start 01/26/19 at 21:00 Acetaminophen (Tylenol Tab) 650 mg Q6H PRN GTB PAIN LEVEL 1-10/10; Start 01/26/19 at 17:30 Folic Acid (Folic Acid) 1 mg DAILY GTB Last administered on 02/02/19 08:58; Admin Dose 1 MG; Start 01/27/19 at 09:00 Hydralazine HCl (Apresoline) 25 mg Q8 PO Last administered on 02/02/19 06:23; Admin Dose 25 MG; Start 01/26/19 at 22:00 Linagliptin (Tradjenta) 5 mg DAILY GTB Last administered on 02/02/19 09:04; Admin Dose 5 MG; Start 01/27/19 at 09:00 Lorazepam (Ativan) 1 mg HS PRN GTB ANXIETY Last administered on 01/28/19 22:27; Admin Dose 1 MG; Start 01/26/19 at 17:30 Metoprolol Tartrate (Lopressor) 50 mg BID GTB Last administered on 02/02/19 09:28; Admin Dose 50 MG; Start 01/26/19 at 21:00 Polyethylene Glycol (Miralax) 17 gm Q24H GTB Last administered on 02/01/19 17:33; Admin Dose 17 GM; Start 01/26/19 at 17:30 Quetiapine Fumarate (Seroquel) 25 mg BID GTB Last administered on 02/02/19 08:58; Admin Dose 25 MG; Start 01/26/19 at 21:00 Senna (Senokot) 1 tab BID PO Last administered on 02/02/19 08:58; Admin Dose 1 TAB; Start 01/26/19 at 21:00 Lansoprazole (Prevacid) 30 mg DAILY@06 GTB Last administered on 02/02/19 06:20; Admin Dose 30 MG; Start 01/27/19 at 06:00 Heparin Sodium (Porcine) (Heparin (1000 Units/ml)) 4,000 unit AFTER DIALYSIS CATHETER Last administered on 02/01/19 16:53; Admin Dose 4,000 UNIT; Start 01/27/19 at 00:30 [facility] This patient lane... PRN PRN XX WOUND CARE; Start 01/27/19 at 04:30 Docusate Sodium (Colace Liquid Cup) 100 mg BID GTB Last administered on 02/02/19 08:58; Admin Dose 100 MG; Start 01/27/19 at 10:00 Ferrous Sulfate (Feosol Liquid Cup) 300 mg BID NGT Last administered on 02/02/19 08:58; Admin Dose 300 MG; Start 01/27/19 at 10:00 Valproate Sodium (Depakene Liquid Cup) 250 mg Q8 PO Last administered on 02/02/19 06:20; Admin Dose 250 MG; Start 01/27/19 at 22:00 IV Flush (NS 3 ml) 3 ml per protocol IV ; Start 01/29/19 at 15:30 Morphine Sulfate (morphine) 2 mg Q3H PRN IV PAIN; Start 01/29/19 at 16:00 Acetaminophen/ Hydrocodone Bitart ([place] (5/325)) 1 tab Q3H PRN PO MODERATE PAIN LEVEL 4-6 Last administered on 02/01/19at 21:06; Admin Dose 1 TAB; Start 01/29/19 at 16:00 Vancomycin HCl (Vanco Iv Per Pharmacy) VANCOMYCIN PER PHARMACY PER PROTOCOL XX ; Start 01/31/19 at 10:30 Meropenem/Sodium Chloride 50 ml @ 100 mls/hr Q24H IVPB Last administered on 02/01/19at 12:30; Admin Dose 100 MLS/HR; Start 01/31/19 at 13:00 Insulin Detemir (Levemir) 4 units DAILY@2000 SC Last administered on 02/01/19at 20:09; Admin Dose 4 UNITS; Start 01/31/19 at 20:00 Miscellaneous Information 1 ea NOTE XX ; Start 02/01/19 at 12:30 Glucose (Glutose) 15 gm Q15M PRN PO DECREASED GLUCOSE; Start 02/01/19 at 12:30 Glucose (Glutose) 22.5 gm Q15M PRN PO DECREASED GLUCOSE; Start 02/01/19 at 12:30 Dextrose (D50w Syringe) 25 ml Q15M PRN IV DECREASED GLUCOSE; Start 02/01/19 at 12:30 Dextrose (D50w Syringe) 50 ml Q15M PRN IV DECREASED GLUCOSE; Start 02/01/19 at 12:30 Glucagon (Glucagen) 1 mg Q15M PRN IM DECREASED GLUCOSE; Start 02/01/19 at 12:30 Glucose (Glutose) 15 gm Q15M PRN BUCCAL DECREASED GLUCOSE; Start 02/01/19 at 12:30 Albumin Human 100 ml @ 100 mls/hr WITH DIALYSIS PRN IV SBP <90 DURING DIALYSIS; Start 02/01/19 at 13:30 Sodium Chloride (NS) -To prime the dialy... DIRECTED FOR HD PRN IV HD; Start 02/01/19 at 13:30 Amlodipine Besylate (Norvasc) 2.5 mg BID GTB Last administered on 02/02/19at 09:28; Admin Dose 2.5 MG; Start 02/01/19 at 21:00 Insulin Aspart (Novolog Insulin Pen) NOVOLOG *MILD* ALGORI... Q6 SC Last administered on 02/02/19at 06:40; Admin Dose 1 UNIT; Start 02/01/19 at 18:00 Vancomycin/Sodium Chloride 250 ml @ 125 mls/hr ONCE IVPB ; Start 02/02/19 at 12:00; Stop 02/02/19 at 13:59 Assessment/Plan Hospital Course (Demo Recall) Cardiovascular preop evaluation Femoral fracture status post fall: s/p surgery History of P-atrial fibrillation rapid ventricular response: Currently back in sinus rhythm History of fungemia /fungal urinary tract infection Status post right hand hematoma: Status post I&D Renal failure on dialysis Hypertension Dementia Anemia AI Recommendations: cont beta-farrah as tolerated. Dialysis as per renal team Antibiotic as per ID and internal medicine DVT prophylaxis as per internal medicine Patient is currently optimized medical therapy Thank you for his referral. We will continue to follow along with you as needed CHRISTEN ESCOBEDO MD [facility] CHRISTEN ESCOBEDO MD Feb 02, 2019 10:11
[2019-02-02] MEDS ORDERED: VANCOMYCIN 750 MG (PMX) 250 ML IVPB SCH (12:00)
--- NOTE | 2019-02-02 12:19 | CONS ---
Assessment/Plan Assessment/Plan Assessment/Plan (Daily) 1 Left knee effusion,acuute oblique moderately displaced distal femur fracture s/p ORIF 3. End-stage renal disease.ON hd 4. Hypertension. 5. Diabetes mellitus. 6. G-tube placement. 7. Atrial fibrillation. 8. 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 9. History of multiple sepsis including pneumonia and fungal sepsis. 10. Anemia. 12. Hyponatremia. 13. Malnutrition. 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 15. Hypoalbuminemia. 16 Acute blood loss anemia 17 Leukocytosis / Sepsis due to UTI 18 Proteus UTI Plan - cw HD MWF, s/p HD yesterday, off schedule , next HD tmw - abx for UTI per ID - restarted on home BP meds - Avoid nephrotoxins - Renally dose all meds Consultation Date/Type/Reason Admit Date/Time Jan 26, 2019 at 17:14 Initial Consult Date Requesting Provider: DYLON WALLS MD Date/Time of Note DATE: 02/02/19 TIME: 12:17 24 HR Interval Summary Free Text/Dictation no acute events H and h stable s/p HD yesterday Exam/Review of Systems Exam Vitals Vital Signs Date Temp Pulse Resp B/P (MAP) Pulse Ox O2 O2 Flow FiO2 Time Delivery Rate 02/02/19 99.2 87 18 136/63 97 Room Air 12:00 (87) 01/29/19 2.0 16:11 Intake and Output 02/01/19 02/01/19 02/02/19 1515:00 23:00 07:00 IntakeIntake Total 50 ml 580 ml 410 ml OutputOutput Total 2900 ml BalanceBalance 50 ml -2320 ml 410 ml Exam Awake and alert permacath G tube clear lungs s/p ORIF surgical site seen with no active oozing Results Result Diagram: 02/02/19 0429 02/02/19 0429 Results 24hrs Laboratory Tests Test 02/01/19 17:28 02/01/19 20:08 02/02/19 00:33 02/02/19 04:29 Bedside Glucose 148 218 167 White Blood Count 10.9 H Red Blood Count 3.54 #L Hemoglobin 10.1 #L Hematocrit 30.6 #L Mean Corpuscular 86.4 Volume Mean Corpuscular 28.5 L Hemoglobin Mean Corpuscular 33.0 Hemoglobin Concent Red Cell 15.9 H Distribution Width Platelet Count 283 Mean Platelet Volume 11.3 H Immature 2.200 H Granulocytes % Neutrophils % 81.1 H Lymphocytes % 5.3 L Monocytes % 9.8 Eosinophils % 1.1 Basophils % 0.5 Nucleated Red Blood 0.5 H Cells % Immature 0.240 H Granulocytes # Neutrophils # 8.9 H Lymphocytes # 0.6 L Monocytes # 1.1 H Eosinophils # 0.1 Basophils # 0.1 Nucleated Red Blood 0.1 H Cells # Sodium Level 142 Potassium Level 4.0 Chloride Level 106 Carbon Dioxide Level 28 Anion Gap 8 Blood Urea Nitrogen 42 #H Creatinine 1.56 H Est Glomerular Filtrat Rate mL/min Glucose Level 135 Calcium Level 9.2 Phosphorus Level 1.6 #L Magnesium Level 2.6 H Random Vancomycin 12.2 Level Test 02/02/19 06:35 02/02/19 09:04 02/02/19 12:09 Bedside Glucose 174 179 175 Medications Medication Current Medications IV Flush (NS 3 ml) 3 ml PER PROTOCOL IV Last administered on 01/30/19at 23:54; Admin Dose 3 ML; Start 01/26/19 at 17:30 Ondansetron HCl (Zofran Inj) 4 mg Q6H PRN IV NAUSEA/VOMITING; Start 01/26/19 at 17:30 Acetaminophen (Tylenol Tab) 650 mg Q6H PRN PO .PAIN 1-3 OR TEMP; Start 01/26/19 at 17:30 Acetaminophen/ Hydrocodone Bitart (Mellette (5/325)) 1 tab Q6H PRN PO .MOD PAIN 4- 6; Start 01/26/19 at 17:30 Morphine Sulfate (morphine) 2 mg Q4H PRN IV .SEVERE PAIN 7-10; Start 01/26/19 at 17:30 Magnesium Hydroxide (Milk Of Mag) 30 ml DAILY PRN PO .CONSTIPATION; Start 01/26/19 at 17:30 Heparin Sodium (Porcine) (Heparin (5000 Units/1ml)) 5,000 unit Q12 SC Last administered on 02/02/19at 08:59; Admin Dose 5,000 UNIT; Start 01/26/19 at 21:00 Acetaminophen (Tylenol Tab) 650 mg Q6H PRN GTB PAIN LEVEL 1-10/10; Start 01/26/19 at 17:30 Folic Acid (Folic Acid) 1 mg DAILY GTB Last administered on 02/02/19 08:58; Admin Dose 1 MG; Start 01/27/19 at 09:00 Hydralazine HCl (Apresoline) 25 mg Q8 PO Last administered on 02/02/19 06:23; Admin Dose 25 MG; Start 01/26/19 at 22:00 Linagliptin (Tradjenta) 5 mg DAILY GTB Last administered on 02/02/19 09:04; Admin Dose 5 MG; Start 01/27/19 at 09:00 Lorazepam (Ativan) 1 mg HS PRN GTB ANXIETY Last administered on 01/28/19 22:27; Admin Dose 1 MG; Start 01/26/19 at 17:30 Metoprolol Tartrate (Lopressor) 50 mg BID GTB Last administered on 02/02/19 09:28; Admin Dose 50 MG; Start 01/26/19 at 21:00 Polyethylene Glycol (Miralax) 17 gm Q24H GTB Last administered on 02/01/19 17:33; Admin Dose 17 GM; Start 01/26/19 at 17:30 Quetiapine Fumarate (Seroquel) 25 mg BID GTB Last administered on 02/02/19 08:58; Admin Dose 25 MG; Start 01/26/19 at 21:00 Senna (Senokot) 1 tab BID PO Last administered on 02/02/19 08:58; Admin Dose 1 TAB; Start 01/26/19 at 21:00 Lansoprazole (Prevacid) 30 mg DAILY@06 GTB Last administered on 02/02/19 06:20; Admin Dose 30 MG; Start 01/27/19 at 06:00 Heparin Sodium (Porcine) (Heparin (1000 Units/ml)) 4,000 unit AFTER DIALYSIS CA THETER Last administered on 02/01/19 16:53; Admin Dose 4,000 UNIT; Start 01/27/19 at 00:30 Miscellaneous Information (Pending Santyl Order For Wound Care) This patient lane... PRN PRN XX WOUND CARE; Start 01/27/19 at 04:30 Docusate Sodium (Colace Liquid Cup) 100 mg BID GTB Last administered on 01/08 08:58; Admin Dose 100 MG; Start 01/27/19 at 10:00 Ferrous Sulfate (Feosol Liquid Cup) 300 mg BID NGT Last administered on 02/02/19at 08:58; Admin Dose 300 MG; Start 01/27/19 at 10:00 Valproate Sodium (Depakene Liquid Cup) 250 mg Q8 PO Last administered on 02/02/19at 06:20; Admin Dose 250 MG; Start 01/27/19 at 22:00 IV Flush (NS 3 ml) 3 ml per protocol IV ; Start 01/29/19 at 15:30 Morphine Sulfate (morphine) 2 mg Q3H PRN IV PAIN; Start 01/29/19 at 16:00 Acetaminophen/ Hydrocodone Bitart (Mellette (5/325)) 1 tab Q3H PRN PO MODERATE PAIN LEVEL 4-6 Last administered on 02/01/19at 21:06; Admin Dose 1 TAB; Start 01/29/19 at 16:00 Vancomycin HCl (Vanco Iv Per Pharmacy) VANCOMYCIN PER PHARMACY PER PROTOCOL XX ; Start 01/31/19 at 10:30 Meropenem/Sodium Chloride 50 ml @ 100 mls/hr Q24H IVPB Last administered on 02/01/19at 12:30; Admin Dose 100 MLS/HR; Start 01/31/19 at 13:00 Insulin Detemir (Levemir) 4 units DAILY@2000 SC Last administered on 02/01/19at 20:09; Admin Dose 4 UNITS; Start 01/31/19 at 20:00 Miscellaneous Information 1 ea NOTE XX ; Start 02/01/19 at 12:30 Glucose (Glutose) 15 gm Q15M PRN PO DECREASED GLUCOSE; Start 02/01/19 at 12:30 Glucose (Glutose) 22.5 gm Q15M PRN PO DECREASED GLUCOSE; Start 02/01/19 at 12:30 Dextrose (D50w Syringe) 25 ml Q15M PRN IV DECREASED GLUCOSE; Start 02/01/19 at 12:30 Dextrose (D50w Syringe) 50 ml Q15M PRN IV DECREASED GLUCOSE; Start 02/01/19 at 12:30 Glucagon (Glucagen) 1 mg Q15M PRN IM DECREASED GLUCOSE; Start 02/01/19 at 12:30 Glucose (Glutose) 15 gm Q15M PRN BUCCAL DECREASED GLUCOSE; Start 02/01/19 at 12:30 Albumin Human 100 ml @ 100 mls/hr WITH DIALYSIS PRN IV SBP <90 DURING DIALYSIS; Start 02/01/19 at 13:30 Sodium Chloride (NS) -To prime the dialy... DIRECTED FOR HD PRN IV HD; Start 02/01/19 at 13:30 Amlodipine Besylate (Norvasc) 2.5 mg BID GTB Last administered on 02/02/19at 09:28; Admin Dose 2.5 MG; Start 02/01/19 at 21:00 Insulin Aspart (Novolog Insulin Pen) NOVOLOG *MILD* ALGORI... Q6 SC Last administered on 02/02/19at 12:12; Admin Dose 1 UNIT; Start 02/01/19 at 18:00 Vancomycin/Sodium Chloride 250 ml @ 125 mls/hr ONCE IVPB Last administered on 02/02/19at 12:10; Admin Dose 125 MLS/HR; Start 02/02/19 at 12:00; Stop 02/02/19 at 13:59 Sodium Phosphate (Neutra-Phos) 500 mg ONCE ONCE PO ; Start 02/02/19 at 12:30; Stop 02/02/19 at 12:31; Status JOSE RAUL ALLAN MD Feb 02, 2019 12:19
[2019-02-02] MEDS ORDERED: NEUTRA-PHOS 250 MG PACKET PO ONE (12:30)
--- NOTE | 2019-02-02 12:52 | CONS ---
Assessment/Plan Assessment/Plan Hospital Course (Demo Recall) No events, no fevers overnight Microbiology: Urine culture growing MDR Proteus Chest x-ray yesterday revealed no evidence for active cardiopulmonary disease Antimicrobials: Meropenem Vanco Indwelling: Left chest permacath, PEG Physical examination: Chronically ill-appearing elderly woman who is awake, confused, in no distress. Head atraumatic normocephalic. Neck is supple. Chest rise symmetrical breath sounds diminished bases. Heart: S1-S2. Abdomen soft bowel sounds present, right upper extremity Armani wrapped Assessment: 1. Recurrent UTI 2. Left femoral fracture, status post open reduction internal fixation 01/29/19 3. End-stage renal disease, hemodialysis dependent 4. Dementia 5. Diabetes 6. Status post fungemia and VRE bacteremia Plan: Patient remained stable, wbc decreasing, change Merrem to Cefepime Consultation Date/Type/Reason Admit Date/Time Jan 26, 2019 at 17:14 Initial Consult Date 01/28/19 Type of Consult id Requesting Provider: DYLON WALLS MD Date/Time of Note DATE: 02/02/19 TIME: 12:51 Exam/Review of Systems Exam Vitals Vital Signs Date Temp Pulse Resp B/P (MAP) Pulse Ox O2 O2 Flow FiO2 Time Delivery Rate 02/02/19 99.2 87 18 136/63 97 Room Air 12:00 (87) 01/29/19 2.0 16:11 Intake and Output 02/01/19 02/01/19 02/02/19 1515:00 23:00 07:00 IntakeIntake Total 50 ml 580 ml 410 ml OutputOutput Total 2900 ml BalanceBalance 50 ml -2320 ml 410 ml Results Result Diagram: 02/02/19 0429 02/02/19 0429 Results 24hrs Laboratory Tests Test 02/01/19 17:28 02/01/19 20:08 02/02/19 00:33 02/02/19 04:29 Bedside Glucose 148 218 167 White Blood Count 10.9 H Red Blood Count 3.54 #L Hemoglobin 10.1 #L Hematocrit 30.6 #L Mean Corpuscular 86.4 Volume Mean Corpuscular 28.5 L Hemoglobin Mean Corpuscular 33.0 Hemoglobin Concent Red Cell 15.9 H Distribution Width Platelet Count 283 Mean Platelet Volume 11.3 H Immature 2.200 H Granulocytes % Neutrophils % 81.1 H Lymphocytes % 5.3 L Monocytes % 9.8 Eosinophils % 1.1 Basophils % 0.5 Nucleated Red Blood 0.5 H Cells % Immature 0.240 H Granulocytes # Neutrophils # 8.9 H Lymphocytes # 0.6 L Monocytes # 1.1 H Eosinophils # 0.1 Basophils # 0.1 Nucleated Red Blood 0.1 H Cells # Sodium Level 142 Potassium Level 4.0 Chloride Level 106 Carbon Dioxide Level 28 Anion Gap 8 Blood Urea Nitrogen 42 #H Creatinine 1.56 H Est Glomerular Filtrat Rate mL/min Glucose Level 135 Calcium Level 9.2 Phosphorus Level 1.6 #L Magnesium Level 2.6 H Random Vancomycin 12.2 Level Test 02/02/19 06:35 02/02/19 09:04 02/02/19 12:09 Bedside Glucose 174 179 175 Medications Medication Current Medications IV Flush (NS 3 ml) 3 ml PER PROTOCOL IV Last administered on 01/30/19at 23:54; Admin Dose 3 ML; Start 01/26/19 at 17:30 Ondansetron HCl (Zofran Inj) 4 mg Q6H PRN IV NAUSEA/VOMITING; Start 01/26/19 at 17:30 Acetaminophen (Tylenol Tab) 650 mg Q6H PRN PO .PAIN 1-3 OR TEMP; Start 01/26/19 at 17:30 Acetaminophen/ Hydrocodone Bitart ([place] (5/325)) 1 tab Q6H PRN PO .MOD PAIN 4- 6; Start 01/26/19 at 17:30 Morphine Sulfate (morphine) 2 mg Q4H PRN IV .SEVERE PAIN 7-10; Start 01/26/19 at 17:30 Magnesium Hydroxide (Milk Of Mag) 30 ml DAILY PRN PO .CONSTIPATION; Start 01/26/19 at 17:30 Heparin Sodium (Porcine) (Heparin (5000 Units/1ml)) 5,000 unit Q12 SC Last administered on 02/02/19at 08:59; Admin Dose 5,000 UNIT; Start 01/26/19 at 21:00 Acetaminophen (Tylenol Tab) 650 mg Q6H PRN GTB PAIN LEVEL 1-10/10; Start 01/26/19 at 17:30 Folic Acid (Folic Acid) 1 mg DAILY GTB Last administered on 02/02/19at 08:58; Admin Dose 1 MG; Start 01/27/19 at 09:00 Hydralazine HCl (Apresoline) 25 mg Q8 PO Last administered on 02/02/19 06:23; Admin Dose 25 MG; Start 01/26/19 at 22:00 Linagliptin (Tradjenta) 5 mg DAILY GTB Last administered on 02/02/19 09:04; Admin Dose 5 MG; Start 01/27/19 at 09:00 Lorazepam (Ativan) 1 mg HS PRN GTB ANXIETY Last administered on 01/28/19 22:27; Admin Dose 1 MG; Start 01/26/19 at 17:30 Metoprolol Tartrate (Lopressor) 50 mg BID GTB Last administered on 02/02/19 09:28; Admin Dose 50 MG; Start 01/26/19 at 21:00 Polyethylene Glycol (Miralax) 17 gm Q24H GTB Last administered on 02/01/19 17:33; Admin Dose 17 GM; Start 01/26/19 at 17:30 Quetiapine Fumarate (Seroquel) 25 mg BID GTB Last administered on 02/02/19 08:58; Admin Dose 25 MG; Start 01/26/19 at 21:00 Senna (Senokot) 1 tab BID PO Last administered on 02/02/19 08:58; Admin Dose 1 TAB; Start 01/26/19 at 21:00 Lansoprazole (Prevacid) 30 mg DAILY@06 GTB Last administered on 02/02/19 06:20; Admin Dose 30 MG; Start 01/27/19 at 06:00 Heparin Sodium (Porcine) (Heparin (1000 Units/ml)) 4,000 unit AFTER DIALYSIS CATHETER Last administered on 02/01/19 16:53; Admin Dose 4,000 UNIT; Start 01/27/19 at 00:30 Miscellaneous Information (Pending Santyl Order For Wound Care) This patient lane... PRN PRN XX WOUND CARE; Start 01/27/19 at 04:30 Docusate Sodium (Colace Liquid Cup) 100 mg BID GTB Last administered on 02/02/19 08:58; Admin Dose 100 MG; Start 01/27/19 at 10:00 Ferrous Sulfate (Feosol Liquid Cup) 300 mg BID NGT Last administered on 02/02/19 08:58; Admin Dose 300 MG; Start 01/27/19 at 10:00 Valproate Sodium (Depakene Liquid Cup) 250 mg Q8 PO Last administered on 02/02/19at 06:20; Admin Dose 250 MG; Start 01/27/19 at 22:00 IV Flush (NS 3 ml) 3 ml per protocol IV ; Start 01/29/19 at 15:30 Morphine Sulfate (morphine) 2 mg Q3H PRN IV PAIN; Start 01/29/19 at 16:00 Acetaminophen/ Hydrocodone Bitart (Alburtis (5/325)) 1 tab Q3H PRN PO MODERATE PAIN LEVEL 4-6 Last administered on 02/01/19at 21:06; Admin Dose 1 TAB; Start 01/29/19 at 16:00 Vancomycin HCl (Vanco Iv Per Pharmacy) VANCOMYCIN PER PHARMACY PER PROTOCOL XX ; Start 01/31/19 at 10:30 Meropenem/Sodium Chloride 50 ml @ 100 mls/hr Q24H IVPB Last administered on 02/01/19at 12:30; Admin Dose 100 MLS/HR; Start 01/31/19 at 13:00 Insulin Detemir (Levemir) 4 units DAILY@2000 SC Last administered on 02/01/19at 20:09; Admin Dose 4 UNITS; Start 01/31/19 at 20:00 Miscellaneous Information 1 ea NOTE XX ; Start 02/01/19 at 12:30 Glucose (Glutose) 15 gm Q15M PRN PO DECREASED GLUCOSE; Start 02/01/19 at 12:30 Glucose (Glutose) 22.5 gm Q15M PRN PO DECREASED GLUCOSE; Start 02/01/19 at 12:30 Dextrose (D50w Syringe) 25 ml Q15M PRN IV DECREASED GLUCOSE; Start 02/01/19 at 12:30 Dextrose (D50w Syringe) 50 ml Q15M PRN IV DECREASED GLUCOSE; Start 02/01/19 at 12:30 Glucagon (Glucagen) 1 mg Q15M PRN IM DECREASED GLUCOSE; Start 02/01/19 at 12:30 Glucose (Glutose) 15 gm Q15M PRN BUCCAL DECREASED GLUCOSE; Start 02/01/19 at 12:30 Albumin Human 100 ml @ 100 mls/hr WITH DIALYSIS PRN IV SBP <90 DURING DIALYSIS; Start 02/01/19 at 13:30 Sodium Chloride (NS) -To prime the dialy... DIRECTED FOR HD PRN IV HD; Start 02/01/19 at 13:30 Amlodipine Besylate (Norvasc) 2.5 mg BID GTB Last administered on 02/02/19at 09:28; Admin Dose 2.5 MG; Start 02/01/19 at 21:00 Insulin Aspart (Novolog Insulin Pen) NOVOLOG *MILD* ALGORI... Q6 SC Last administered on 02/02/19at 12:12; Admin Dose 1 UNIT; Start 02/01/19 at 18:00 Vancomycin/Sodium Chloride 250 ml @ 125 mls/hr ONCE IVPB Last administered on 02/02/19at 12:10; Admin Dose 125 MLS/HR; Start 02/02/19 at 12:00; Stop 02/02/19 at 13:59 PHYLICIA HOLCOMB NP Feb 02, 2019 12:52
--- NOTE | 2019-02-02 13:37 | PDOCDIS ---
Discharge Instructions CONDITION [id number] Patient Condition: [id number] Stable HOME CARE INSTRUCTIONS: [id number] Special Diet: [id number] GT diet, maximum 30 cc/hr, hx of high residual and aspiration FOLLOW UP/APPOINTMENTS Follow-up Plan follow up with Dr. Juan Miranda, see reconciliation DYLON WALLS MD Feb 02, 2019 13:37
[2019-02-02] MEDS ORDERED: CEFEPIME 1GM/50 ML (PMX) 50 ML IVPB SCH (14:00)
[2019-02-02] MEDS: POLYETHYLENE GLYCOL 17 GM PACKET GTB SCH (18:16)
--- NOTE | 2019-02-03 04:07 | DS ---
DATE OF ADMISSION: 01/26/2019 DATE OF DISCHARGE: 02/02/2019 REASON FOR ADMISSION: Left distal femur fracture. HOSPITAL COURSE: The patient is an 83-year-old Somali female overall very sick and ill with recurr ent hospitalization, patient with poor quality of life. She has a history of advanced dementia, end- stage renal disease, hypertension, diastolic dysfunction heart failure, diabetes mellitus type 2 over all controlled, vascular dementia, anxiety disorder, arrhythmia, COPD, dysphagia, G-tube feeding and moderate to severe caloric-protein malnutrition, has been admitted multiple times to various hospital s, now presented to [facility] after an apparent abnormal x-ray which suggests left distal femur fracture. Exact mechanism of injury is unclear. The patient may have fallen upon pres entation to the emergency department. She underwent various diagnostic imaging and admitted for furt her care. The patient was seen by Dr. Cesario Rivera and it was decided to proceed with initial placement of temporary brace and then surgical intervention. The patient underwent on 01/29/2019 open reducti on and internal fixation utilizing a cord cable system. The patient tolerated the procedure well. P ost-procedure, she did receive transfusion 2 units. Also, she was noted to have worsening leukocytos is, so the patient was cultured and the patient was started on broad-spectrum antibiotics. Ultimatel y, I consulted Dr. Proctor and the patient is now on cefepime. White count now almost normalized at 1 0.9, hemoglobin is stable at 10.1. DISCHARGE MEDICATIONS: The patient now can be discharged [facility] to [facility] with t he following medications: 1. Tylenol 650 q.6 p.r.n. 2. Norvasc 2.5 mg b.i.d. 3. MiraLax as directed. 4. Cefepime 1 gram x7 days. 5. Colace 100 twice a day. 6. Ferrous sulfate 325 b.i.d. 7. Folic acid 1 mg daily. 8. Heparin 5000 subcutaneous q.12 for 30 days. 9. Hydralazine 25 q.8 hours. 10. [place] 5/325 q.6 p.r.n. 11. Insulin aspart per sliding scale. 12. Levemir 4 units daily. 13. Prevacid 30 mg daily. 14. Tradjenta 5 mg daily. 15. Ativan 1 mg at bedtime p.r.n. 16. Milk of Magnesia daily. 17. Metoprolol tartrate 50 b.i.d. 18. Wound care consult as directed. 19. Treatment of hypoglycemia. 20. Zofran 4 mg p.o. q.6 p.r.n. 21. MiraLax 17 grams daily. 22. Seroquel 25 twice a day. 23. Senna 1 tab daily. 24. Depakote 250 q.8 hours. 25. Aspirin is on hold due to recent possible GI bleed. FINAL DIAGNOSES: 1. Distal left femur fracture. 2. Rule out postop aspiration versus urinary tract infection. 3. End-stage renal disease. 4. Hypertension. 5. Vascular dementia. 6. Anemia. 7. Osteoarthritis. 8. Chronic obstructive pulmonary disease. 9. Diastolic dysfunction heart failure. 10. G-tube feeding. 11. Moderate caloric-protein malnutrition. 12. Recurrent falls. Fall precaution is a must. 13. Overall poor quality of life. The patient is DNR. Family is not ready for comfort measures or hospice. The patient is to be monitored closely to skill ed nursing facility. Case was discussed with the daughter on an intermittent basis. She is aware of plan of care. Continue G-tube feeding with head elevation. Fall precautions. Dictated By: DYLON HULL/MADAN Conf#: [id number] DID#: [id number] CC: CESARIO RIVERA MD;*EndCC*
== END 2019-02-02 20:36 | DRG 480 ==
LOC: E/R 12:52 → PP2 17:14
PROVIDERS: ADMIT Internal Medicine; ATTEND Internal Medicine
PROC: 5A1D70Z Performance of Urinary Filtration, Intermittent, Less than 6 Hours Per Day (ICD-10-PCS; 2019-01-27)
PROC: 0D20XUZ Change Feeding Device in Upper Intestinal Tract, External Approach (ICD-10-PCS; 2019-01-27)
PROC: 0QSC04Z Reposition Left Lower Femur with Internal Fixation Device, Open Approach (ICD-10-PCS; principal; 2019-01-29 11:00)
PROC: 30233N1 Transfusion of Nonautologous Red Blood Cells into Peripheral Vein, Percutaneous Approach (ICD-10-PCS; 2019-01-30)
DX: S72.452A Displaced supracondylar fracture without intracondylar extension of lower end of left femur, initial encounter for closed fracture (principal); N18.6 End stage renal disease; K94.23 Gastrostomy malfunction; Z68.1 Body mass index [BMI] 19.9 or less, adult; I13.2 Hypertensive heart and chronic kidney disease with heart failure and with stage 5 chronic kidney disease, or end stage renal disease; E44.0 Moderate protein-calorie malnutrition; E87.1 Hypo-osmolality and hyponatremia; I50.30 Unspecified diastolic (congestive) heart failure; N39.0 Urinary tract infection, site not specified; D62 Acute posthemorrhagic anemia; R64 Cachexia; S72.402A Unspecified fracture of lower end of left femur, initial encounter for closed fracture; E11.22 Type 2 diabetes mellitus with diabetic chronic kidney disease; F01.50 Vascular dementia, unspecified severity, without behavioral disturbance, psychotic disturbance, mood disturbance, and anxiety; J44.9 Chronic obstructive pulmonary disease, unspecified; R13.10 Dysphagia, unspecified; D63.1 Anemia in chronic kidney disease; Z66 Do not resuscitate; I48.0 Paroxysmal atrial fibrillation; I25.10 Atherosclerotic heart disease of native coronary artery without angina pectoris; W19.XXXA Unspecified fall, initial encounter; Y83.8 Other surgical procedures as the cause of abnormal reaction of the patient, or of later complication, without mention of misadventure at the time of the procedure; B96.4 Proteus (mirabilis) (morganii) as the cause of diseases classified elsewhere; M19.90 Unspecified osteoarthritis, unspecified site; Z91.81 History of falling; Z99.2 Dependence on renal dialysis
CPT/HCPCS: 36430; 71045; 73550; 73562; 74018; 80048; 80053; 80202; 81001; 82962; 83036; 83605; 83735; 84100; 85014; 85018; 85025; 85610; 85730; 86850; 86900; 86901; 86920; 87086; 87340; 90935; 93005; A4310; J0690; J0692; J1644; J1650; J1815; J2185; J2250; J2405; J2795; J3010; J3370; L1832; P9016; P9047

== ENCOUNTER 2019-02-06 20:55 | Emergency (ER) | payer MEDICARE, OTHER ==
[~2019-02-06] VITALS: Ht 152.4 cm; Wt 45.0 kg
[~2019-02-06 20:55] MED LIST changes: +ACET-141 GTB; +ACET325T45 GTB; +AMIN30LI GTB; +ASC500 GTB; +ASPI-903 GTB; +ATOR40TA68 GTB; +BISA10SU75 PR; +CRAN3875 GTB; +CRAN425C6 GTB; -FER325 PO; +FERR220S13 GTB; +GUAI5SYR2 GTB; -HYDR-3671 GTB; +LANT3I SC; -LINA145C GTB; +LORA0.5T GTB; -LORA1TAB GTB; +MAGN400O19 GTB; +METO-407 GTB; -METO-429 GTB; +METO5TAB58 GTB; +MULT9LIQ4 GTB; +NA P230E RC; +OLAN5TAB5 GTB; +PANT40TA4 GTB; -QUET25TA GTB; -SENN-120 PO; -SEVE0.8P PO; +SEVE800T7 GTB
[2019-02-06 21:11] VITALS: Ht 152.4 cm; Wt 45.0 kg
[2019-02-06] MEDS ORDERED: FENTAnyl 50 MCG/ML VIAL IV ONE (22:00)
--- NOTE | 2019-02-07 00:27 | ERD ---
ER Documentation Chief Complaint Chief Complaint "lock jaw" x 3 hours per daughter, h/o same. from [facility]. HPI 83-year-old female [facility] for "blacked out" for the past 3 hours. Daughter noticed that her mouth was open. This is happened to her before and she has been to the ER for reduction. She thinks that it must have happened when the patient was yawning. ROS Limited as the patient is unable to speak due to her condition Medications Home Meds Reported Medications Guaifenesin-Dextromethorphan* (Robitussin* DM) 100MG/10MG/5ML Syrup, 5 ML GTB Q4H, ML 01/26/19 Metoclopramide* (Reglan*) 5 Mg Tablet, 5 MG GTB Q6H PRN for NAUSEA AND OR VOMITING, TAB 01/26/19 Na Phos,M-B/Na Phos,Di-Ba (Fleet Enema Extra) Unknown Strength Enema, 1 APPLIC RC Q2D, ENEMA 01/26/19 Bisacodyl* (Bisacodyl*) 10 Mg Supp, 10 MG ND DAILY, SUPP 01/26/19 Magnesium Hydroxide* (Milk Of Magnesia*) 400 Mg/5 Ml Oral.susp, 30 ML GTB QHS, ML 01/26/19 Insulin Glargine* (Lantus*) 100 Unit/Ml Soln, 4 UNIT SC QHS, #1 VIAL 01/26/19 Insulin Aspart* (Novolog Insulin Pen*) 100 Unit/Ml Soln, 0 SC .SLIDING SCALE AC, EA IF BS 0-150=0 UNIT,151-200=1 UNIT,201-250=2 UNITS,251-300=3 UNITS,301-350=4 UNITS,351-400=5 UNITS. IF >400=6 UNITS AND CALL MD IF<60=ORANGE JUICE OR GLUCOSE GEL AND CALL MD 01/26/19 Olanzapine* (Zyprexa*) 5 Mg Tablet, 5 MG GTB DAILY, #30 TAB 01/26/19 Lorazepam* (Lorazepam*) 0.5 Mg Tablet, 0.5 MG GTB HS PRN for ANXIETY, TAB 01/26/19 Amino Acids/Protein Hydrolys (PRO-STAT LIQUID) 30 Ml Liquid.pkt, 30 ML GTB DAILY SUGAR FREE 01/26/19 Multivit &Minerals/Ferrous Fum (MULTIVITAMIN LIQUID) 9 Mg/15 Ml Liquid, 5 ML GTB DAILY 01/26/19 Ascorbic Acid (Vitamin C) 500 Mg Tab, 500 MG GTB DAILY, TAB 01/26/19 Ferrous Sulfate* (Ferrous Sulfate*) 220 Mg/5 Ml Solution, 7.5 ML GTB DAILY, ML 01/26/19 Cran/Vitc/Mannose/Inulin/Brom (Uti-Stat Liquid) 3,875 Mg/30 Ml Liquid, 30 MG GTB BID 01/26/19 Cranberry Extract (Cranberry) 425 Mg Capsule, 425 MG GTB DAILY, CAP 01/26/19 Sevelamer Carbonate* (Renvela*) 800 Mg Tablet, 1.6 GM GTB WITH MEALS, TAB 01/26/19 Metoprolol Tartrate* (Lopressor*) 100 Mg Tablet, 100 MG GTB BID, #60 TAB 01/26/19 Ipratropium-Albuterol (Ipratropium-Albuterol) 0.5-3 Mg/3 Ml Ampul.neb, 3 ML INHALATION Q6, #30 VIAL 01/26/19 Aspirin* (Aspirin* Chew) 81 Mg Tab.chew, 81 MG GTB DAILY, TAB.CHEW 01/26/19 [Nephro-Roque] No Conflict Check, 1 TAB GTB DAILY 01/26/19 Pantoprazole* (Pantoprazole*) 40 Mg Tablet.dr, 40 MG GTB AC BREAKFAST DINNER, TAB 01/26/19 Atorvastatin* (Atorvastatin*) 40 Mg Tablet, 40 MG GTB QHS, #30 TAB 01/26/19 Acetaminophen* (Acetaminophen*) 500 MG Extra Strength Tablet, 1000 MG GTB Q4H PRN for PAIN LEVEL 4-6/10, TAB 01/26/19 Acetaminophen* (Acetaminophen*) 500 MG Extra Strength Tablet, 1000 MG GTB DAILY PRN for PAIN AND OR ELEVATED TEMP, TAB 01/26/19 Acetaminophen* (Acetaminophen*) 325 Mg Tablet, 325 MG GTB Q4H PRN for FOR FEVER 100AND ABOVE, #30 TAB 01/26/19 Lansoprazole* (Lansoprazole*) 30 Mg Capsule.dr, 30 MG PO QAM, CAP 11/16/18 Hydralazine Hcl* (Hydralazine Hcl*) 25 Mg Tab, 25 MG PO Q8, #90 TAB 11/16/18 Valproate Sodium (Valproic Acid) 250 Mg/5 Ml Solution, 250 MG PO Q8, ML 11/16/18 Ondansetron Hcl* (Zofran*) 4 Mg Tab, 4 MG GTB Q4H PRN for NAUSEA AND OR VOMITING, TAB 10/16/18 Linagliptin (TRADJENTA) 5 Mg Tablet, 5 MG GTB DAILY, TAB 10/16/18 Polyethylene Glycol* (Miralax*) 17 Gm Powd.pack, 17 GM GTB Q24H, #30 PACKET 10/16/18 Folic Acid* (Folic Acid*) 1 Mg Tablet, 1 MG GTB DAILY, TAB 10/16/18 Docusate Sodium* (Colace*) 100 Mg Capsule, 100 MG GTB DAILY, #30 CAP 10/16/18 Amlodipine Besylate* (Norvasc*) 5 Mg Tablet, 5 MG GTB BID, TAB TAKE Q TUE,ANDREW,SAT FOR HTN, HOLD FOR SBP<110 OR ND<60 10/16/18 Acetaminophen* (Acetaminophen*) 650 Mg Tablet, 650 MG GTB Q6H PRN for PAIN LEVEL 1-1010, #30 TAB 10/16/18 Allergies Allergies: Coded Allergies: No Known Allergy (Unverified , 01/26/19) PMhx/Soc History of Surgery: Yes (C SECTION,GT TUBE PLACEMENT, LEFT LEG OPEN REDUCTION) Anesthesia Reaction: No Hx 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 Disorder: Yes (epilepsy, subdural bleed, Dementia, Metabolic encephalopathy) Hx Respiratory Disorders: Yes (COPD, PNA) Hx Cardiac Disorders: Yes (hypertension, CHF, afib) Hx Psychiatric Problems: Yes (Schizophrenia, anxiety) Hx Miscellaneous Medical Probl: Yes (Dysphagia, Moderate brittany-pro malnutrition, Dementia, dialysis) Hx Alcohol Use: No Hx Substance Use: No Hx Tobacco Use: No Smoking Status: Unknown if ever smoked FmHx Unable to obtain Physical Exam Vitals Vital Signs Date Temp Pulse Resp B/P (MAP) Pulse Ox O2 O2 Flow FiO2 Time Delivery Rate 02/07/19 3.0 01:03 02/06/19 83 16 147/55 100 Room Air 22:30 (85) 02/06/19 98.6 84 18 151/56 100 Room Air 21:18 (87) 02/06/19 98.5 79 18 152/52 100 21:11 (85) Physical Exam Const: No acute distress Head: Atraumatic Eyes: Normal Conjunctiva ENT: Edentulous. Mouth partially open, unable to close. Dry mucous membranes. No facial swelling Neck: Full range of motion. No meningismus. Resp: Rhonchi bilaterally. No tachypnea or respiratory distress Cardio: Regular rate and rhythm, no murmurs Ext: No cyanosis, or edema Neur: Awake and alert. Moving all extremities spontaneously Psych: Normal Mood and Affect Results 24 hrs Current Medications Medications Dose Sig/Ricardo Start Time Status Last (Trade) Ordered Route PRN Stop Time Admin Dose Reason Admin Fentanyl 25 mcg ONCE ONCE 02/06/19 DC 02/06/19 (Sublimaze) IV 22:00 22:08 02/06/19 22:01 Fentanyl 25 mcg ONCE ONCE 02/07/19 DC 02/07/19 (Sublimaze) IV 00:30 02/07/19 00:16 00:31 Propofol 20 ml @ ud STK-MED 02/07/19 DC ONCE .ROUTE 00:34 02/07/19 00:35 Propofol 40 mg ONCE STAT 02/07/19 DC 02/07/19 (Diprivan) IV 00:36 02/07/19 01:14 00:37 Procedures/MDM EMERGENT LABS AND DIAGNOSTIC STUDIES: Lab Results above were reviewed and interpreted by me. Radiology Results as interpreted by Radiology below were reviewed by Evelio Hines MD: CT mandible shows bilateral anterior mandibular condyle dislocation Initial Nursing notes reviewed. Previous Medical Records requested via the Electronic Health Record. EMERGENCY DEPARTMENT COURSE / MEDICAL DECISION MAKING: Procedural Sedation: Pre-assessment performed. See preceding complete history and physical for details. Time out performed. See sedation documentation for details. Risk, benefits and alternatives were discussed with the patient. Medication(s): Propofol, fentanyl Complications: No hypoxic or apneic events Recovered without incident. A minimum of 16 minutes of face to face time was performed including preparation, sedation and recovery time. Mandibular reduction by me: Anesthesia: Procedural sedation with propofol Location: Mandible Technique: Gentle manipulation Results: unable to reduce jaw after multiple attempts Patient presented with atraumatic mandibular dislocation. Attempted reduction with just fentanyl, patient did not tolerate. Conscious sedation was done and mandible reduction was attempted, but again unsuccessful. I called Dr. Cooper, aviation electronics technician for ENT. He stated that he does not deal with jaw/TMJ problems. He had no advice or recommendations. Patient will need OMFS consultation. This service is not available at our hospital. She will need to be transferred to another facility for this. Attempted to notify PCP, but he is unavailable. Patient awaiting acceptance to other facility. Signed out to oncoming MD. Departure Diagnosis: Primary Impression: Closed dislocation of mandible Encounter type: initial encounter Qualified Codes: S03.00XA - Dislocation of jaw, unspecified side, initial encounter Condition: Stable SUMANTH HINES MD Feb 07, 2019 00:27
[2019-02-07] MEDS ORDERED: FENTAnyl 50 MCG/ML VIAL IV ONE (00:30)
[2019-02-07] MEDS ORDERED: PROPOFOL 20 ML ONE (00:34)
[2019-02-07] MEDS ORDERED: PROPOFOL 200 MG INJ IV STA (00:36)
[2019-02-07 03:30] VITALS: BP 158/57; PULSE 85; RESP 30
--- NOTE | 2019-02-07 03:32 | EN ---
Date/Time of Note Date/Time of Note DATE: 02/07/19 TIME: 03:28 ER Progress Note Procedural Sedation: Pre-assessment performed. See preceding complete history and physical for details. Time out performed. See sedation documentation for details. Risk, benefits and alternatives were discussed with the patient. Medication(s): Propofol, 50 mg,, based on 45 kg weight Complications: No hypoxic or apneic events Recovered without incident. A minimum of 16 minutes of face to face time was performed including preparation, sedation and recovery time. Procedural sedation was performed, for bilateral mandibular dislocation, patient tolerated the procedure well, clinically reduced, patient is now stable to be discharged to her half-way facility. VICTORINO BAILEY MD Feb 07, 2019 03:32
== END 2019-02-07 06:32 | disposition home or self-care (01) ==
LOC: E/R 20:55
DX: S03.03XA Dislocation of jaw, bilateral, initial encounter (principal); R40.2142 Coma scale, eyes open, spontaneous, at arrival to emergency department; R40.2222 Coma scale, best verbal response, incomprehensible words, at arrival to emergency department; R40.2362 Coma scale, best motor response, obeys commands, at arrival to emergency department; I11.0 Hypertensive heart disease with heart failure; I50.9 Heart failure, unspecified; J44.9 Chronic obstructive pulmonary disease, unspecified; X58.XXXA Exposure to other specified factors, initial encounter; Y92.89 Other specified places as the place of occurrence of the external cause; Z79.82 Long term (current) use of aspirin; Z79.4 Long term (current) use of insulin; Z99.2 Dependence on renal dialysis
CPT/HCPCS: 21480; 70486; 94770; 99285; J3010

== ENCOUNTER 2019-02-18 21:02 | Inpatient (IN) | payer MEDICARE, OTHER ==
[~2019-02-18] VITALS: Ht 152.4 cm; Wt 38.0 kg
--- NOTE | 2019-02-18 21:30 | ERD ---
ER Documentation Chief Complaint Chief Complaint MARISOL LANDRUM FROM [facility] FOR FEVER HPI The patient is a 83-year-old female, presenting to the ER because she has fever at the half-way. He is demented and unable to provide any history, the history is obtained from the medical support assistant and medical record Past medical history: COPD, history of CHF, history of atrial fibrillation, anxiety, dyslipidemia, dementia, chronic kidney disease on dialysis on Thursday and Thursday, diabetes mellitus, anxiety dysphagia Past surgical history: , G-tube, left femur surgery, left chest hemodialysis catheter ROS All systems reviewed and are negative except as per history of present illness. Medications Home Meds Reported Medications Linaclotide (LINZESS) 145 Mcg Capsule, 145 MCG PO DAILY, #30 CAP 02/19/19 Metoprolol Tartrate* (Lopressor*) 50 Mg Tab, 50 MG PO BID, #60 TAB give 50mg by mouth BID, Every THU,ANDREW,SAT., HOLD FOR SBP<110 OR OH<60 02/19/19 Metoprolol Tartrate* (Lopressor*) 50 Mg Tab, 50 MG PO DAILY, #60 TAB Give every THU,THU,THU,SUN,HOLD for SBP<110 or OH<60 02/19/19 Quetiapine Fumarate* (Quetiapine Fumarate*) 25 Mg Tablet, 25 MG PO BID, TAB 02/19/19 Ferrous Sulfate* (Ferrous Sulfate*) 325 Mg Tabec, 325 MG PO BID, TAB 02/19/19 Sennosides* (Senna Lax*) 8.6 Mg Tablet, 1 TAB PO BID, TAB 02/19/19 Guaifenesin-Dextromethorphan* (Robitussin* DM) 100MG/10MG/5ML Syrup, 5 ML GTB Q4H, ML 01/26/19 Metoclopramide* (Reglan*) 5 Mg Tablet, 5 MG GTB Q6H PRN for NAUSEA AND OR VOMITING, TAB 01/26/19 Na Phos,M-B/Na Phos,Di-Ba (Fleet Enema Extra) Unknown Strength Enema, 1 APPLIC RC Q2D, ENEMA 01/26/19 Bisacodyl* (Bisacodyl*) 10 Mg Supp, 10 MG OH DAILY, SUPP 01/26/19 Magnesium Hydroxide* (Milk Of Magnesia*) 400 Mg/5 Ml Oral.susp, 30 ML GTB QHS, ML 01/26/19 Insulin Glargine* (Lantus*) 100 Unit/Ml Soln, 4 UNIT SC QHS, #1 VIAL 01/26/19 Insulin Aspart* (Novolog Insulin Pen*) 100 Unit/Ml Soln, 0 SC .SLIDING SCALE AC, EA IF BS 0-150=0 UNIT,151-200=1 UNIT,201-250=2 UNITS,251-300=3 UNITS,301-350=4 UNITS,351-400=5 UNITS. IF >400=6 UNITS AND CALL MD IF<60=ORANGE JUICE OR GLUCOSE GEL AND CALL MD 01/26/19 Olanzapine* (Zyprexa*) 5 Mg Tablet, 5 MG GTB DAILY, #30 TAB 01/26/19 Lorazepam* (Lorazepam*) 0.5 Mg Tablet, 0.5 MG GTB HS PRN for ANXIETY, TAB 01/26/19 Amino Acids/Protein Hydrolys (PRO-STAT LIQUID) 30 Ml Liquid.pkt, 30 ML GTB DAILY SUGAR FREE 01/26/19 Multivit &Minerals/Ferrous Fum (MULTIVITAMIN LIQUID) 9 Mg/15 Ml Liquid, 5 ML GTB DAILY 01/26/19 Ascorbic Acid (Vitamin C) 500 Mg Tab, 500 MG GTB DAILY, TAB 01/26/19 Cran/Vitc/Mannose/Inulin/Brom (Uti-Stat Liquid) 3,875 Mg/30 Ml Liquid, 30 MG GTB BID 01/26/19 Cranberry Extract (Cranberry) 425 Mg Capsule, 425 MG GTB DAILY, CAP 01/26/19 Sevelamer Carbonate* (Renvela*) 800 Mg Tablet, 1.6 GM GTB WITH MEALS, TAB 01/26/19 Ipratropium-Albuterol (Ipratropium-Albuterol) 0.5-3 Mg/3 Ml Ampul.neb, 3 ML INHALATION Q6, #30 VIAL 01/26/19 Aspirin* (Aspirin* Chew) 81 Mg Tab.chew, 81 MG GTB DAILY, TAB.CHEW 01/26/19 [Nephro-Roque] No Conflict Check, 1 TAB GTB DAILY 01/26/19 Pantoprazole* (Pantoprazole*) 40 Mg Tablet.dr, 40 MG GTB AC BREAKFAST DINNER, TAB 01/26/19 Atorvastatin* (Atorvastatin*) 40 Mg Tablet, 40 MG GTB QHS, #30 TAB 01/26/19 Acetaminophen* (Acetaminophen*) 500 MG Extra Strength Tablet, 1000 MG GTB Q4H PRN for PAIN LEVEL 4-6/10, TAB 01/26/19 Acetaminophen* (Acetaminophen*) 500 MG Extra Strength Tablet, 1000 MG GTB DAILY PRN for PAIN AND OR ELEVATED TEMP, TAB 01/26/19 Acetaminophen* (Acetaminophen*) 325 Mg Tablet, 325 MG GTB Q4H PRN for FOR FEVER 100AND ABOVE, #30 TAB 01/26/19 Lansoprazole* (Lansoprazole*) 30 Mg Capsule.dr, 30 MG PO QAM, CAP 11/16/18 Hydralazine Hcl* (Hydralazine Hcl*) 25 Mg Tab, 25 MG PO Q8, #90 TAB 11/16/18 Valproate Sodium (Valproic Acid) 250 Mg/5 Ml Solution, 250 MG PO Q8, ML 11/16/18 Ondansetron Hcl* (Zofran*) 4 Mg Tab, 4 MG GTB Q4H PRN for NAUSEA AND OR VOMITING, TAB 10/16/18 Linagliptin (TRADJENTA) 5 Mg Tablet, 5 MG GTB DAILY, TAB 10/16/18 Polyethylene Glycol* (Miralax*) 17 Gm Powd.pack, 17 GM GTB Q24H, #30 PACKET 10/16/18 Folic Acid* (Folic Acid*) 1 Mg Tablet, 1 MG GTB DAILY, TAB 10/16/18 Docusate Sodium* (Colace*) 100 Mg Capsule, 100 MG GTB DAILY, #30 CAP 10/16/18 Amlodipine Besylate* (Norvasc*) 5 Mg Tablet, 5 MG GTB BID, TAB TAKE Q TUE,ANDREW,SAT FOR HTN, HOLD FOR SBP<110 OR OH<60 10/16/18 Acetaminophen* (Acetaminophen*) 650 Mg Tablet, 650 MG GTB Q6H PRN for PAIN LEVEL 1-10/10, #30 TAB 10/16/18 Discontinued Reported Medications Ferrous Sulfate* (Ferrous Sulfate*) 220 Mg/5 Ml Solution, 7.5 ML GTB DAILY, ML 01/26/19 Metoprolol Tartrate* (Lopressor*) 100 Mg Tablet, 100 MG GTB BID, #60 TAB 01/26/19 Allergies Allergies: Coded Allergies: No Known Allergy (Unverified , 02/18/19) PMhx/Soc History of Surgery: Yes (C SECTION,GT TUBE PLACEMENT, LEFT LEG OPEN REDUCTION) Anesthesia Reaction: No Hx 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 Disorder: Yes (epilepsy, subdural bleed, Dementia, Metabolic encephalopathy) Hx Respiratory Disorders: Yes (COPD, PNA) Hx Cardiac Disorders: Yes (hypertension, CHF, afib) Hx Psychiatric Problems: Yes (Schizophrenia, anxiety) Hx Miscellaneous Medical Probl: Yes (Dysphagia, Moderate brittany-pro malnutrition, Dementia, dialysis) Hx Alcohol Use: No Hx Substance Use: No Hx Tobacco Use: No Smoking Status: Never smoker Physical Exam Vitals Vital Signs Date Temp Pulse Resp B/P (MAP) Pulse Ox O2 O2 Flow FiO2 Time Delivery Rate 02/19/19 100.0 89 20 130/49 100 Room Air 01:01 (76) 02/18/19 100.0 91 20 114/39 100 Room Air 22:55 (64) 02/18/19 99.1 90 20 133/61 99 21:10 (85) Physical Exam Const: No acute distress. Head: Atraumatic. Eyes: Normal Conjunctiva. ENT: Normal External Ears, Nose and Mouth. Neck: Full range of motion. No meningismus. Resp: Clear to auscultation bilaterally. Cardio: Regular rate and rhythm. Abd: Soft, non distended, normal bowel sounds, non tender.G Tube Skin: No petechiae or rashes. Back: No midline or flank tenderness. Ext: No cyanosis, or edema. Neur: Awake, limited due to her condition Psych: Unable to perform due to her condition. Result Diagram: 02/18/19220102/18/192201 Results 24 hrs Laboratory Tests Test 02/18/19 21:54 02/18/19 22:00 02/18/19 22:02 02/18/19 22:03 Bedside Glucose 98 mg/dL POC Venous 1.4 mmol/L Lactate White Blood Count 16.0 10^3/ul Red Blood Count 2.33 10^6/ul Hemoglobin 6.6 g/dl Hematocrit 20.4 % Mean Corpuscular 87.6 fl Volume Mean Corpuscular 28.3 pg Hemoglobin Mean Corpuscular 32.4 g/dl Hemoglobin Concen t Red Cell 15.9 % Distribution Width Platelet Count 254 10^3/UL Mean Platelet 10.5 fl Volume Immature 1.700 % Granulocytes % Neutrophils % % Segmented 78 % Neutrophils % (Manual) Band Neutrophils 2 % % (Manual) Lymphocytes % % Lymphocytes % 8 % (Manual) Reactive 3 % Lymphocytes % (Manual) Monocytes % % Monocytes % 8 % (Manual) Eosinophils % % Eosinophils % 1 % (Manual) Basophils % % Nucleated Red 4 % Blood Cells % Immature 0.270 10^3/ul Granulocytes # Neutrophils # 10^3/ul Neutrophils # 12.5 10^3/ul (Manual) Band Neutrophils 0.3 10^3/ul # Lymphocytes 1.2 10^3/ul (Manual) Lymphocytes # 10^3/ul Reactive 0.4 10^3/ul Lymphocytes # Monocytes # 10^3/ul Monocytes # 1.2 10^3/ul (Manual) Eosinophils # 10^3/ul Basophils # 10^3/ul Nucleated Red 10^3/ul Blood Cells # Platelet Estimate NORMAL Giant Platelets 1 % Polychromasia 3+ Hypochromasia 1+ Basophilic 1+ Stippling Anisocytosis 2+ Microcytosis 2+ Prothrombin Time 14.0 Sec Prothrombin Time 1.1 Ratio INR International 1.07 Normalized Ratio Activated 94.4 Sec Partial Thrombopl ast Time Sodium Level 133 mmol/L Potassium Level 3.9 mmol/L Chloride Level 96 mmol/L Carbon Dioxide 32 mmol/L Level Anion Gap 5 Blood Urea 18 mg/dl Nitrogen Creatinine 1.17 mg/dl Est Glomerular mL/min Filtrat Rate mL/min Glucose Level 89 mg/dl Calcium Level 9.0 mg/dl Total Bilirubin 0.8 mg/dl Direct Bilirubin 0.00 mg/dl Indirect 0.8 mg/dl Bilirubin Aspartate Amino 42 IU/L Transf (AST/SGOT) Alanine 14 IU/L Aminotransferase (ALT/SGPT) Alkaline 134 IU/L Phosphatase Troponin I 0.042 ng/ml Total Protein 7.0 g/dl Albumin 3.2 g/dl Globulin 3.80 g/dl Albumin/Globulin 0.84 Ratio Urine Color MARCELINO Urine Clarity CLOUDY Urine pH 5.0 Urine Specific 1.017 [place] Urine Ketones NEGATIVE mg/dL Urine Nitrite NEGATIVE mg/dL Urine Bilirubin NEGATIVE mg/dL Urine NEGATIVE mg/dL Urobilinogen Urine Leukocyte 2+ Dot/ul Esterase Urine Microscopic 2 /HPF RBC Urine Microscopic 101 /HPF WBC Urine Yeast MODERATE /HPF (Budding) Urine Hemoglobin 2+ mg/dL Urine Glucose NEGATIVE mg/dL Urine Total 2+ mg/dl Protein Current Medications Medications Dose Sig/Ricardo Start Time Status Last (Trade) Ordered Route PRN Stop Time Admin Dose Reason Admin Piperacillin 50 ml @ ONCE ONCE 02/19/19 DC 02/19/19 Sod/ 100 mls/hr IVPB 01:00 01:55 Tazobactam 02/19/19 01:29 Sod Procedures/MDM [place] [address] Radiology Main Line: [phone] DIAGNOSTIC IMAGING REPORT Patient: MIGUEL BA : 1935 Age: 83 Sex: F MR #: [id number] DOS: 02/18/192131 Ordering MD: ERYN MANCERA MD Location: E/R Room/Bed: PROCEDURE: One view chest radiograph. CLINICAL INDICATION: Sepsis TECHNIQUE: An AP view of the chest was obtained. COMPARISON: 01/19/2019 FINDINGS: Mediastinum: The patient is slumped and rotated to the left. There is a left IJ dialysis catheter in place with the tip in the right atrium. There is prominent calcification of the aortic arch. Heart size: Normal. Pulmonary vasculature: No visible engorgement. Lungs: Clear. Costophrenic sulci: Clear. Bony structures: Grossly unremarkable for age. IMPRESSION: 1. Dialysis catheter with the tip in the right atrium. 2. Severe aortic calcification. 3. No definite evidence of pneumonia or congestive failure. RPTAT:AAJJ Physician Salty Date Time Electronically viewed and signed by Physician Salty on 02/18/2019 22:45 GW/ CC: ERYN MANCERA MD [id number] EKG: Read by emergency physician Rate/Rhythm: Normal Sinus Rhythm 90 beats per min QRS, ST, T-waves: No ST elevation, inferior anterior lateral ST and T abnormality, prolonged QT Impression: Abnormal EKG MEDICAL MAKING DECISION: The patient is a 83-year-old female, presenting with acute cystitis, acute yeast vaginitis, suspected acute GI bleed. She was treated with 2 unit of packed red blood cell for acute anemia, zosyn iv for acute cystitis with good response The differential diagnoses considered include but are not limited to cholelithiasis, cholecystitis, choledocholithiasis, cholangitis, pancreatitis, hepatitis, gastritis, peptic ulcer disease, gastric ulcer, appendicitis, cystitis, diverticulitis, partial small bowel obstruction, acute GI bleed. Departure Diagnosis: Primary Impression: UTI (urinary tract infection) Additional Impression: Anemia Condition: Stable Comments I discussed the findings with the patient. I discussed the patient with Dr Perez at 1 am , who was made aware of the lab, the treatment, the patient condition. The patient is admitted to Tel Disclaimer: Inadvertent spelling and grammatical errors are likely due to EHR/dictation software use and do not reflect on the overall quality of patient care. Also, please note that the electronic time recorded on this note does not necessarily reflect the actual time of the patient encounter. ERYN MANCERA MD Feb 18, 2019 21:30
[2019-02-19] VITALS (15 sets, daily range): BP systolic 112–161; BP diastolic 55–68; PULSE 85–107; RESP 18–20; Ht 152.4 cm; Wt 38.0 kg
[2019-02-19] MEDS ORDERED: LINA145C PO (00:17)
[2019-02-19] MEDS ORDERED: FER325 PO (00:17)
[2019-02-19] MEDS ORDERED: SENN-120 PO (00:17)
[2019-02-19] MEDS ORDERED: QUET25TA33 PO (00:17)
[2019-02-19] MEDS ORDERED: METO-429 PO ×2 (00:17)
[2019-02-19] MEDS ORDERED: PIPER-TAZO 2.25 GM (PMX) 50 ML IVPB ONE (01:00)
[2019-02-19] MEDS ORDERED: ONDANSETRON 4 MG INJ IV PRN (03:30)
[2019-02-19] MEDS ORDERED: MAGNESIUM HYDROXIDE 30ML CUP PO PRN (03:30)
[2019-02-19] MEDS ORDERED: ACETAMINOPHEN 325 MG TAB GTB PRN (03:30)
[2019-02-19] MEDS ORDERED: DOCUSATE SODIUM 100 MG CAP PO PRN (03:30)
[2019-02-19] MEDS ORDERED: NACL 0.9% 3 ML SYG IV SCH (03:30)
[2019-02-19] MEDS ORDERED: ONDANSETRON 4 MG TAB GTB PRN (03:30)
[2019-02-19] MEDS ORDERED: ACETAMINOPHEN 325 MG TAB PO PRN (03:30)
[2019-02-19] MEDS ORDERED: DOCUSATE SODIUM 10 MG/ML (10ML CUP) GTB PRN (04:00)
[2019-02-19] MEDS: LORAZEPAM 0.5 MG TAB GTB PRN (04:01)
[2019-02-19] MEDS: MEROPENEM 1 GM/50ML(PMX) 50 ML IVPB SCH ×2 (04:21→17:06)
[2019-02-19] MEDS: GUAIFENESIN/DM 5ML CUP GTB SCH ×6 (04:21→23:28)
[2019-02-19] MEDS ORDERED: VALPROIC ACID (50 MG/ML PO SYG) PO SCH (06:00)
[2019-02-19] MEDS ORDERED: PANTOPRAZOLE (EC) 40 MG TAB PO SCH (06:00)
[2019-02-19] MEDS: LANSOPRAZOLE 30 MG CAP GTB SCH (06:24)
[2019-02-19] MEDS: VALPROIC ACID LIQUID CUP 250 MG/5 ML CUP GTB SCH ×3 (06:25→21:49)
[2019-02-19] MEDS ORDERED: DOCUSATE SODIUM 100 MG CAP PO SCH (09:00)
[2019-02-19] MEDS: FOLIC ACID 1 MG TAB GTB SCH (09:05)
[2019-02-19] MEDS: DOCUSATE SODIUM 10 MG/ML (10ML CUP) GTB SCH (09:05)
[2019-02-19] MEDS: ASPIRIN 81 MG TAB GTB SCH (09:06)
[2019-02-19] MEDS: LINAGLIPTIN 5 MG TABLET GTB SCH (09:06)
[2019-02-19] MEDS: OLANZAPINE 5 MG TAB GTB SCH (09:06)
[2019-02-19] MEDS: FERROUS SULFATE (EC) 325 MG TAB PO SCH ×2 (09:06→20:10)
[2019-02-19] MEDS: METOPROLOL 50 MG TAB GTB SCH ×2 (09:06→20:11)
[2019-02-19] MEDS: SEVELAMER CARBONATE 0.8 GM PKT GTB SCH ×3 (09:06→17:06)
[2019-02-19] MEDS: AMLODIPINE 5 MG TAB GTB SCH ×2 (09:06→20:11)
[2019-02-19] MEDS: ASCORBIC ACID 500 MG TAB GTB SCH (09:06)
--- NOTE | 2019-02-19 10:52 | CONS ---
DATE OF ADMISSION: 02/19/2019 DATE OF CONSULTATION: 02/19/2019 TYPE OF CONSULTATION: Infectious Disease. REASON FOR CONSULTATION: Antibiotic management. HISTORY OF PRESENT ILLNESS: The patient is an 83-year-old female who is brought in from [facility] with fever. She is demented and unable to provide any history. Her past probl ems include: 1. COPD. 2. Congestive heart failure. 3. Atrial fibrillation. 4. Anxiety. 5. Dementia. 6. Dyslipidemia. 7. Chronic renal disease on hemodialysis. 8. Diabetes mellitus. 9. Dysphagia. 10. Status post G-tube placement. 11. . 12. Left femur surgery. 13. Left chest hemodialysis catheter. The patient comes in with fever, white count of 16,000 with 78% neutrophils, 2% bands, hemoglobin and hematocrit of 6.6/20.4, platelet count 254,000, so she is significantly anemic on dialysis. BUN and creatinine 18/1.17. PAST SURGICAL HISTORY: As noted, she had a , G-tube placement, left leg open reduction inte rnal fixation. PAST MEDICAL HISTORY: She has a history of epilepsy and subdural bleed with metabolic encephalopathy and dementia. We noted that she had chronic obstructive pulmonary disease, pneumonia, hypertension, atrial fibrillation, history of schizophrenia, dysphagia, dialysis, etc. FAMILY HISTORY: Noncontributory. SOCIAL HISTORY: She does not smoke, drink or abuse drugs. ALLERGIES: NONE TO PENICILLIN, SULFA OR FOODS. MEDICATIONS: Per chart. REVIEW OF SYSTEMS: As per HPI. PHYSICAL EXAMINATION: VITAL SIGNS: Temperature is 100%. GENERAL: Without generalized rash. HEENT: Within normal limits. NECK: Supple. LYMPH NODES: None palpable. CHEST: Decreased breath sounds at the bases. HEART: Without murmur or gallop. ABDOMEN: Soft, nontender, without organomegaly, splenomegaly or masses. EXTREMITIES: Without cyanosis, clubbing, or edema. RECTAL AND GENITAL: Deferred. NEUROLOGIC: No focal neurological abnormality. As noted, her white count was 16,000 with left shift. Her urine is cloudy, 2+ leukocyte esterase, 10 1 white cells per high powered field. IMPRESSION AND PLAN: The patient has urinary tract infection, was started on Zosyn. Her chest x-ray shows dialysis catheter with tip in the right atrium. No definite evidence of pneumonia or congesti ve failure. The patient felt to have urinary tract infection and therefore, the patient was admitted to telemetry. We will await the culture results. I will dictate my findings to Dr. Perez. Dictated By: EDIE CHANG MD, JD/NTS Conf#: [id number] DID#: [id number] CC: DYLON PEREZ MD;*EndCC*
[2019-02-19] MEDS: ACETAMINOPHEN 325 MG TAB GTB PRN ×2 (11:57→21:49)
--- NOTE | 2019-02-19 17:52 | HP ---
DATE OF ADMISSION: 02/19/2019 REASON FOR ADMISSION: Fevers, UTI, anemia. HISTORY OF PRESENT ILLNESS: The patient is a very unfortunate, very sick 83-year-old Austrian female , very well known to me with history of advanced dementia, end-stage renal disease on dialysis 3 time s a week with Dr. Juliocesar Stringer, hypertension, diastolic dysfunction heart failure, diabetes mellitus type 2 overall controlled with meds, anxiety disorder, arrhythmia, COPD, dysphagia, G-tube feeding an d moderate to severe caloric-protein malnutrition, dysphagia. Patient has been hospitalized multiple times in the past few months for line sepsis, left distal femur fracture, status post repair. The p ataurelia now resides at [facility] where she was noted to be febrile, als o with decrease aggressive behavior. The patient was sent to [facility] for evaluation which she was found to have a white count of 16,000 and hemoglobin of 6.6. Ammonia level was normal. No pneumonia. Lactic acid was normal at 1.2. The patient was febrile with a temp erature of 100. The patient underwent diagnostic tests, urinalysis revealed +2 leukocyte esterase suarez ggestive of UTI. The patient was started on antibiotics with Zosyn and admitted to the floor telemet ry unit for further medical management. Also, she was typed and crossed and 2 units of packed red bl ood cells were ordered. PAST MEDICAL HISTORY: Include end-stage renal disease, diabetes mellitus, anemia, osteoarthritis, CO PD, chronic diastolic dysfunction heart failure, dysphagia, moderate caloric-protein malnutrition, mu ltiple orthopedic surgeries, behavioral disturbances due to dementia. SURGICAL HISTORY: Hip replacement surgery due to hip fracture, left distal femur fracture repair, C- section, G-tube placement. ALLERGIES: NO KNOWN DRUG ALLERGIES. FAMILY HISTORY: Noncontributory. SOCIAL HISTORY: The patient's daughter is Alejandro which helps with her care, the decision maker, . As my discussion with her multiple times, the patient is DNR status. CURRENT MEDICATIONS: Include the followin. Ipratropium every 6 hours. 2. ____ 5 b.i.d. 3. Amlodipine 5 mg b.i.d. 4. Atorvastatin 40 mg at bedtime. 5. Hydralazine 25 q.8 hours. 6. Lopressor 50 daily. 7. ____ 8. Tylenol p.r.n. 9. Aspirin 81 daily. 10. Olanzapine 5 mg daily. 11. Lorazepam 0.5 at bedtime. 12. Seroquel 25 b.i.d. 13. Depakote 250 q.8. 14. Renvela as directed. 15. Robitussin as directed. 16. Dulcolax as directed. 17. Prevacid 20 mg daily. 18. Linzess 45 mg daily. 19. Magnesium hydroxide as directed. 20. Reglan p.r.n. 21. Zofran p.r.n. 22. Protonix 40 mg daily. 23. MiraLax 17 grams daily. 24. Senna 1 tab b.i.d. 25. Insulin Aspart sliding scale. 26. Lantus 4 units at bedtime. 27. Vitamin C 500 mg daily. 28. Folic acid 1 mg daily. 29. Multivitamin 1 tab daily. 30. Nephro-Roque 1 tab daily. PHYSICAL EXAMINATION: VITAL SIGNS: Temperature 97.2, pulse 94, respirations 20, blood pressure 125/61, saturation 95%. GENERAL: The patient is frail, currently resting, pale. HEENT: Temporal wasting. CARDIOVASCULAR: S1, S2, regular rate. LUNGS: Clear. G-tube in place. ABDOMEN: Binder is going up to the chest. EXTREMITIES: She has a left upper chest Perm-A-Cath. EXTREMITIES: No clubbing, cyanosis, or edema. Patient is overall with severe muscle atrophy through out. LABORATORY DATA: White count 12, hemoglobin improved to 8.4, hematocrit 26, platelets 227, neutrophi ls 83%, ____ 4%. Chemistry: Sodium 133, potassium 3.6, chloride 98, bicarbonate 28, BUN 29, creatin ine 1.52, glucose 192, alkaline phosphatase is 133, albumin is 3.0. Urinalysis +2 leukocyte esterase . Urine cultures remain so far negative. CURRENT MEDICATIONS: Reviewed. ASSESSMENT AND PLAN: This is an 83-year-old Austrian female, very ill with multiple medical issues i ncluding diabetes mellitus, end-stage renal disease, dementia, malnutrition, G-tube feeding, anemia, previous admissions for pneumonia, fungemia, UTI, etc. 1. Respiratory. Stable. O2 support as needed. 2. Cardiovascular. The patient with anemia, blood thinners are on hold. Continue blood pressure me dication to keep normotensive. 3. Anemia. Transfuse 2 units of packed red blood cells. Rule out GI bleed. GI to be consulted. 4. Malnutrition. Maximum nutrition support via G-tube feeding. 5. UTI. Continue Merrem. ID is following. White count has improved and then follow up urine cultu re results and blood culture results. 6. End-stage renal disease. I consulted Dr. Juliocesar Stringer's group for dialysis. I believe she gets dialysis on Thursday, Thursday, Thursday. 7. Diet via G-tube. 8. Disposition soon, pending cultures, pending progress. 9. The patient was placed on restraints due to risk of fall. Low mattress bed was ordered as well. We will follow. Dictated By: DYLON HULL/MADAN Conf#: [id number] DID#: [id number]
--- NOTE | 2019-02-19 18:32 | QN ---
Documentation Comment seen and examined JOSE RAUL ANDREWS MD Feb 19, 2019 18:32
[2019-02-19] MEDS: ATORVASTATIN 40 MG TAB GTB SCH (20:11)
[2019-02-19] MEDS: MAGNESIUM HYDROXIDE 30ML CUP GTB SCH (20:11)
--- NOTE | 2019-02-19 21:05 | CONS ---
DATE OF ADMISSION: 02/19/2019 DATE OF CONSULTATION: 02/19/2019 REASON FOR ADMISSION: Fevers, UTI, anemia. HISTORY OF PRESENT ILLNESS: An 83-year-old female with a past medical history of advanced dementia, end-stage renal disease on hemodialysis Thursday, Thursday, Thursday; hypertension, diastolic CHF, diabe edelmira, anxiety disorder, COPD or dysphagia due to tube feeding. Moderate to severe protein energy maln utrition, multiple admissions in the past at [facility], residing at [facility], presented to the emergency department after the patient was noted to be febrile t here of 101. According to the daughter, the patient got her regular hemodialysis session yesterday. When she went to the nursing facility, she was found to have fevers of 101 and was sent in to the ER for further evaluation. On arrival to ER, patient was found to have a white count of 16,000, hemogl obin 6.6. Lactate acid was normal. Temperature was 100. UA shows 2+ leukocyte esterase, 101 WBCs. The patient was transfused 1 unit of blood and was admitted for further management. PAST MEDICAL HISTORY: 1. End-stage renal disease on hemodialysis Thursday, Thursday, Thursday. 2. Diabetes. 3. Anemia. 4. Osteoarthritis. 5. Chronic obstructive pulmonary disease. 6. Chronic diastolic dysfunction heart failure. 7. Dysphagia. 8. Moderate protein energy malnutrition. 9. Left hip surgery. PAST SURGICAL HISTORY: Hip surgery, left distal femur fracture repair, , G-tube placement. ALLERGIES: NO ALLERGIES. MEDICATIONS TAKING AT HOME: 1. Ipratropium. 2. Amlodipine. 3. Atorvastatin. 4. Hydralazine. 5. Lopressor. 6. Olanzapine. 7. Lorazepam. 8. Seroquel. 9. Depakote. 10. Renagel. 11. Robitussin 12. Dulcolax. 13. Prevacid. 14. Linzess. 15. Magnesium hydroxide. 16. Protonix. 17. Lantus. 18. Vitamin C. 19. Folic acid. REVIEW OF SYSTEMS HISTORY: Unobtainable as the patient has dementia. PHYSICAL EXAMINATION: VITAL SIGNS: Currently temperature 97.2, pulse 94, respirations 20, blood pressure 125/61, saturatin g 95%. GENERAL: Patient is frail, resting. HEENT: Normocephalic, atraumatic. HEART: Regular rate and rhythm. LUNGS: Clear to auscultation bilaterally. The patient has a G-tube in place. ABDOMEN. Binder up in the chest. EXTREMITIES: Has a left upper extremity Perm-A-Cath, muscle atrophy. DIAGNOSTIC DATA: Shows white count of 16.0, hemoglobin 6.0, platelet count of 254, BUN of 29, creati nine 1.56. UA is positive. Chest x-ray showed a dialysis catheter tip of the right atrium. Severe aortic calcification. ASSESSMENT AND PLAN: This is an 83-year-old female presented with: 1. Fevers, likely secondary to urinary tract infection, rule out line sepsis. 2. End-stage renal disease on hemodialysis. 3. Urinary tract infection. 4. Hypertension. 5. Dementia. 6. Diabetes. 7. Diastolic heart failure. 8. Moderate protein energy malnutrition. 9. Osteoarthritis. PLAN: At this period of time, the patient is admitted to telemetry. The patient is started on merop enem. Urine cultures have been sent. We will continue the patient on hemodialysis. We will also se nd the blood cultures from Perm-A-Cath. Rest of the treatment will depend on the hospitalization cou rse. We will follow up with the blood cultures. Thank you Dr. Perez for the nephrology consultation. Dictated By: JOSE RAUL FERNANDO/MADAN Conf#: [id number] DID#: [id number] CC: DYLON PEREZ MD;*EndCC*
[2019-02-20] VITALS (14 sets, daily range): BP systolic 123–154; BP diastolic 58–67; PULSE 82–98; RESP 16–19
[2019-02-20] MEDS: LORAZEPAM 0.5 MG TAB GTB PRN ×2 (02:15→23:12)
[2019-02-20] MEDS: GUAIFENESIN/DM 5ML CUP GTB SCH ×6 (04:24→23:12)
[2019-02-20] MEDS: VALPROIC ACID LIQUID CUP 250 MG/5 ML CUP GTB SCH ×3 (05:37→21:23)
[2019-02-20] MEDS: LANSOPRAZOLE 30 MG CAP GTB SCH (05:37)
[2019-02-20] MEDS: MEROPENEM 500MG/50 ML (PMX) 50 ML IVPB SCH ×2 (05:38→18:38)
[2019-02-20] MEDS: DOCUSATE SODIUM 10 MG/ML (10ML CUP) GTB SCH (08:17)
[2019-02-20] MEDS: LINAGLIPTIN 5 MG TABLET GTB SCH (08:18)
[2019-02-20] MEDS: AMLODIPINE 5 MG TAB GTB SCH ×2 (08:18→20:07)
[2019-02-20] MEDS: SEVELAMER CARBONATE 0.8 GM PKT GTB SCH ×3 (08:18→16:51)
[2019-02-20] MEDS: METOPROLOL 50 MG TAB GTB SCH ×2 (08:19→20:07)
[2019-02-20] MEDS: FOLIC ACID 1 MG TAB GTB SCH (08:19)
[2019-02-20] MEDS: FERROUS SULFATE (EC) 325 MG TAB PO SCH ×2 (08:19→20:06)
[2019-02-20] MEDS: OLANZAPINE 5 MG TAB GTB SCH (08:19)
[2019-02-20] MEDS: ASCORBIC ACID 500 MG TAB GTB SCH (08:19)
[2019-02-20] MEDS: ASPIRIN 81 MG TAB GTB SCH (08:19)
--- NOTE | 2019-02-20 13:19 | CONS ---
Assessment/Plan Assessment/Plan Hospital Course (Demo Recall) 1. Fevers, likely secondary to urinary tract infection, rule out line sepsis. 2. End-stage renal disease on hemodialysis. 3. Urinary tract infection. 4. Hypertension. 5. Dementia. 6. Diabetes mellitus type II. 7. Diastolic heart failure. 8. Moderate protein energy malnutrition with cachexia. 9. Osteoarthritis. 10. GT status Assessment/Plan (Daily) -telemetry. -c/w meropenem. -Urine cultures have been sent, yeast . -c/w hemodialysis. - blood cultures from Perm-A-Cath are pending. Consultation Date/Type/Reason Admit Date/Time Feb 19, 2019 at 01:01 Initial Consult Date 02/19/2019 Type of Consult nephrology Reason for Consultation ESRD Date/Time of Note DATE: 02/20/19 TIME: 13:18 24 HR Interval Summary Free Text/Dictation none specific Exam/Review of Systems Exam Vitals Vital Signs Date Temp Pulse Resp B/P (MAP) Pulse Ox O2 O2 Flow FiO2 Time Delivery Rate 02/20/19 90 12:00 02/20/19 99.9 16 149/66 95 11:25 (93) 02/19/19 Room Air 18:19 Intake and Output 02/19/19 02/19/19 02/20/19 1515:00 23:00 07:00 IntakeIntake Total 50 ml 610 ml BalanceBalance 50 ml 610 ml Exam left chest Permcath Constitutional: alert, oriented (name) Head: normocephalic Eyes: nl conjunctiva Neck: supple Respiratory: clear to auscultation, normal air movement Cardiovascular: regular rate and rhythm Gastrointestinal: soft, other (GT) Musculoskeletal: muscle weakness, swelling (lefrt lower aspect of hip) Results Result Diagram: 02/20/1951102/20/19 05 Results 24hrs Laboratory Tests Test 02/19/19 21:55 02/20/19 05:12 Bedside Glucose 169 White Blood Count 8.8 # Red Blood Count 2.99 L Hemoglobin 8.3 L Hematocrit 25.8 L Mean Corpuscular Volume 86.3 Mean Corpuscular Hemoglobin 27.8 L Mean Corpuscular Hemoglobin Concent 32.2 Red Cell Distribution Width 16.2 H Platelet Count 225 Mean Platelet Volume 11.0 H Immature Granulocytes % 1.400 H Neutrophils % 74.5 Lymphocytes % 6.8 L Monocytes % 13.2 H Eosinophils % 3.8 Basophils % 0.3 Nucleated Red Blood Cells % 1.3 H Immature Granulocytes # 0.120 H Neutrophils # 6.5 Lymphocytes # 0.6 L Monocytes # 1.2 H Eosinophils # 0.3 Basophils # 0.0 Nucleated Red Blood Cells # 0.1 H Sodium Level 133 L Potassium Level 3.6 Chloride Level 97 Carbon Dioxide Level 28 Anion Gap 8 Blood Urea Nitrogen 49 #H Creatinine 2.04 H Est Glomerular Filtrat Rate mL/min Glucose Level 144 # Calcium Level 8.5 Phosphorus Level 1.9 L Magnesium Level 2.4 Medications Medication Current Medications IV Flush (NS 3 ml) 3 ml PER PROTOCOL IV ; Start 02/19/19 at 03:30 Lorazepam (Ativan) 0.5 mg Q8H PRN GTB .ANXIETY Last administered on 02/19/19at 04:01; Admin Dose 0.5 MG; Start 02/19/19 at 03:30 Ondansetron HCl (Zofran Inj) 4 mg Q6H PRN IV NAUSEA/VOMITING; Start 02/19/19 at 03:30 Magnesium Hydroxide (Milk Of Mag) 30 ml DAILY PRN PO .CONSTIPATION; Start 02/19/19 at 03:30 Acetaminophen (Tylenol Tab) 325 mg Q4H PRN GTB FOR FEVER 100AND ABOVE; Start 02/19/19 at 03:30 Acetaminophen (Tylenol Tab) 650 mg Q6H PRN GTB PAIN LEVEL 1-10/10 Last administered on 02/19/19at 21:49; Admin Dose 650 MG; Start 02/19/19 at 03:30 Amlodipine Besylate (Norvasc) 5 mg BID GTB Last administered on 02/20/19at 08:18; Admin Dose 5 MG; Start 02/19/19 at 09:00 Ascorbic Acid (Vitamin C) 500 mg DAILY GTB Last administered on 02/20/19 08:19; Admin Dose 500 MG; Start 02/19/19 at 09:00 Aspirin (Aspirin) 81 mg DAILY GTB Last administered on 02/20/19at 08:19; Admin Dose 81 MG; Start 02/19/19 at 09:00 Atorvastatin Calcium (Lipitor) 40 mg QHS GTB Last administered on 02/19/19at 20:11; Admin Dose 40 MG; Start 02/19/19 at 21:00 Ferrous Sulfate (Ferrous Sulfate (Ec)) 325 mg BID PO Last administered on 02/20/19 08:19; Admin Dose 325 MG; Start 02/19/19 at 09:00 Folic Acid (Folic Acid) 1 mg DAILY GTB Last administered on 02/20/19 08:19; Admin Dose 1 MG; Start 02/19/19 at 09:00 Guaifenesin/ Dextromethorphan (Robitussin Dm Liquid Cup) 5 ml Q4H GTB Last administered on 02/20/19 11:28; Admin Dose 5 ML; Start 02/19/19 at 03:30 Hydralazine HCl (Apresoline) 25 mg Q8 GTB Last administered on 02/20/19 05:38; Admin Dose 25 MG; Start 02/19/19 at 06:00 Lansoprazole (Prevacid) 30 mg DAILY@0600 GTB Last administered on 02/20/19 05:37; Admin Dose 30 MG; Start 02/19/19 at 06:00 Linagliptin (Tradjenta) 5 mg DAILY GTB Last administered on 02/20/19 08:18; Admin Dose 5 MG; Start 02/19/19 at 09:00 Lorazepam (Ativan) 0.5 mg HS PRN GTB ANXIETY Last administered on 02/20/19 02:15; Admin Dose 0.5 MG; Start 02/19/19 at 03:30 Magnesium Hydroxide (Milk Of Mag) 30 ml QHS GTB Last administered on 02/19/19 20:11; Admin Dose 30 ML; Start 02/19/19 at 21:00 Metoprolol Tartrate (Lopressor) 50 mg BID GTB Last administered on 02/20/19 08:19; Admin Dose 50 MG; Start 02/19/19 at 09:00 Olanzapine (Zyprexa) 5 mg DAILY GTB Last administered on 02/20/19 08:19; Admin Dose 5 MG; Start 02/19/19 at 09:00 Ondansetron HCl (Zofran Tab) 4 mg Q4H PRN GTB NAUSEA AND/OR VOMITING; Start 02/19/19 at 03:30 Sevelamer Carbonate (Renvela) 1.6 gm WITH MEALS GTB Last administered on 02/20/19 11:28; Admin Dose 1.6 GM; Start 02/19/19 at 08:00 Valproate Sodium (Depakene Liquid Cup) 250 mg Q8 GTB Last administered on 02/20/19 05:37; Admin Dose 250 MG; Start 02/19/19 at 06:00 Docusate Sodium (Colace Liquid Cup) 100 mg DAILY GTB Last administered on 02/20/19at 08:17; Admin Dose 100 MG; Start 02/19/19 at 09:00 Docusate Sodium (Colace Liquid Cup) 100 mg Q12H PRN GTB CONSTIPATION; Start 02/19/19 at 04:00 Acetaminophen (Tylenol Tab) 650 mg Q6H PRN GTB .PAIN 1-3 OR TEMP Last administered on 02/19/19at 11:57; Admin Dose 650 MG; Start 02/19/19 at 03:35 Meropenem/Sodium Chloride 50 ml @ 100 mls/hr Q12H IVPB Last administered on 02/20/19 05:38; Admin Dose 100 MLS/HR; Start 02/20/19 at 06:00 FLAVIO CLAYTON Feb 20, 2019 13:19
--- NOTE | 2019-02-20 15:13 | CONS ---
DATE OF ADMISSION: 02/19/2019 DATE OF CONSULTATION: REASON FOR CONSULTATION: Anemia. HISTORY OF PRESENT ILLNESS: The patient is an 83-year-old Qat[place] female with history of dementia, end-stage renal disease on dialysis, hypertension, diastolic dysfunction, diabetes mellitus, anxiety disorder, protein calorie malnutrition, was brought to the hospital for evaluation of leukocytosis an d severe anemia. The patient's lactic acid in the ER was 1.2. She was febrile. The patient's leuko cyte esterase in the urine was positive, was started on appropriate antibiotic after appropriate cult ure and also was given blood transfusion. PAST MEDICAL HISTORY: As described. PAST SURGICAL HISTORY: Hip fracture, distal femur fracture, G-tube placement. ALLERGIES: NO KNOWN DRUG ALLERGIES. FAMILY HISTORY: Nothing contributory. SOCIAL HISTORY: She lives with her daughter. HOME MEDICATIONS: All reviewed. The patient also was on aspirin at home. Besides PPI, rest of the medications reviewed. PHYSICAL EXAMINATION: GENERAL: Alert, awake, not in distress. VITAL SIGNS: Stable. HEENT: Unremarkable. NECK: Supple, no thyromegaly, no lymphadenopathy. CARDIOVASCULAR: No murmur, gallop or click. LUNGS: Clear. ABDOMEN: Benign. EXTREMITIES: No edema. CENTRAL NERVOUS SYSTEM: Grossly within normal limits. The patient's hemoglobin was 6.6, after trans fusion, it is 8.3, BUN and creatinine were elevated. BUN was 49, creatinine 2. INR was normal, but PTT was 94.5. IMPRESSION: 1. Severe anemia, rule out chronic gastrointestinal bleeding, rule out anemia of chronic disease. 2. End-stage renal disease on dialysis. 3. Urinary tract infection. 4. Dysphagia, status post percutaneous endoscopic gastrostomy tube placement. 5. Hypertension. 6. Behavioral disorder. PLAN: At this point is to continue PPI, hold off on aspirin and we will work her up for the anemia, especially stool for occult blood. It is possible that his chronic disease might be the contributing factor. Dictated By: CHRISS FUENTES/NTS Conf#: [id number] DID#: [id number] CC: DEEPALI WALLS MD;*EndCC*
[2019-02-20] MEDS ORDERED: HEPARIN 1000 UNITS/ML 10 ML INJ CATHETER SCH (16:00)
[2019-02-20] MEDS ORDERED: CASPOFUNGIN 70 MG in NS 250 ML IVPB ONE (17:00)
--- NOTE | 2019-02-20 17:05 | PN ---
DATE: 02/20/2019 SUBJECTIVE: The patient continues to have fevers. T-max 99.9 just recently. Urine culture shows yea st, greater than 100,000. The patient previously had history of multidrug resistant yeast infection in the urine. PHYSICAL EXAMINATION: VITAL SIGNS: Temperature 99.9, pulse 90, respirations 16, blood pressure 149/60, saturation 95%. GENERAL: The patient is frail, pale. CARDIOVASCULAR: S1, S2. LUNGS: Clear. ABDOMEN: Soft. She has abdominal binder going to the chest. EXTREMITIES: No clubbing, cyanosis, or edema. G-tube in place, tolerating feeding now at 30 mL an h our. LABS: White count improved to 8.8, hemoglobin 8.3, hematocrit 26, platelet count 325, neutrophils 75 %. Chemistry: Sodium 133, potassium 3.6, calcium 97, bicarbonate 28, BUN is 49, creatinine 2.04, gl ucose 144, phosphorus slightly low at 1.9. UA, urine culture does show yeast, greater than 100,000. MEDICATIONS: 1. Merrem. 2. Lipitor. 3. Milk of magnesia. 4. Norvasc. 3. Vitamin C. 5. Aspirin. 6. . 7. Folic acid. 8. Tradjenta. 9. Lopressor. 10. Zyprexa. 11. Colace. 12. Renvela. 13. Hydralazine. 14. Prevacid. 15. Depakote. 16. Tylenol. 17. Robitussin. 18. Ativan. 19. Zofran. ASSESSMENT AND PLAN: This is an 83-year-old Malagasy female, very ill with multiple medical issues i nclude diabetes mellitus, end-stage renal disease, dementia, malnutrition, G-tube feeding, anemia, pr esented with a urinary tract infection. 1. Respiratory. O2 support as needed. 2. Cardiovascular. Stable. 3. Anemia, status post transfusion. GI is following. Continue proton pump inhibitor. May hold asp irin. This may be a contributing factor for possible bleeding. 4. Infectious disease. The patient with urinary tract infection, organism can see discontinue Merrem. Her white count has improved with that. Due to ongoing fevers again was started on antifun gal medications. 5. End-stage renal disease. Dialysis is planned per nephrology. 6. Dysphagia. Continue G-tube feeding. 7. Anxiety. Continue above psych meds. 8. Patient is definitely more alert today. Continue to follow the patient with restraints with clos e monitoring. Dictated By: DYLON HULL/MADAN Conf#: [id number] DID#: [id number] CC: DYLON WALLS MD;*EndCC*
[2019-02-20] MEDS: MAGNESIUM HYDROXIDE 30ML CUP GTB SCH (20:06)
[2019-02-20] MEDS: ATORVASTATIN 40 MG TAB GTB SCH (20:06)
[2019-02-21] VITALS (30 sets, daily range): BP systolic 93–159; BP diastolic 51–72; PULSE 77–99; RESP 16–18
[2019-02-21] MEDS: GUAIFENESIN/DM 5ML CUP GTB SCH ×6 (04:18→23:28)
[2019-02-21] MEDS: MEROPENEM 500MG/50 ML (PMX) 50 ML IVPB SCH ×2 (05:27→22:15)
[2019-02-21] MEDS: VALPROIC ACID LIQUID CUP 250 MG/5 ML CUP GTB SCH ×3 (05:27→22:16)
[2019-02-21] MEDS: LANSOPRAZOLE 30 MG CAP GTB SCH (05:27)
--- NOTE | 2019-02-21 07:57 | CONS ---
Assessment/Plan Assessment/Plan Hospital Course (Demo Recall) 83 yo female presented with severe anemia Interval hx: HH is up to 8.9/27.6. WBC wnl. Reticulocyte 2.6. Pt bm overnight, RN was not endorsed melena. No occult stool sent. D/w RNMichaelle. Pt denies n/v and abd pain. No overt signs of GI bleeding. Tolerating tube feeds at 30cc/hr. 1. Severe anemia,acute on chronic -GI bleed vs chronic disease 2. End-stage renal disease on dialysis. 3. Urinary tract infection. -positive yeast 4. Dysphagia, status post percutaneous endoscopic gastrostomy tube placement. 5. Hypertension. 6. Behavioral disorder. PLAN: Continue with PPI Pending anemia work up. Retic noted. Aspiration precautions Pt examined and plan of care discussed with Dr. Baird. Consultation Date/Type/Reason Admit Date/Time Feb 19, 2019 at 01:01 Initial Consult Date Date/Time of Note DATE: 02/21/19 TIME: 07:46 Exam/Review of Systems Exam Vitals Vital Signs Date Temp Pulse Resp B/P (MAP) Pulse Ox O2 O2 Flow FiO2 Time Delivery Rate 02/21/19 99.4 91 18 139/65 99 Room Air 06:10 (89) Intake and Output 02/20/19 02/20/19 02/21/19 1515:00 23:00 07:00 IntakeIntake Total 610 ml BalanceBalance 610 ml Constitutional: alert Head: normocephalic Eyes: nl sclera, PERRL Respiratory: clear to auscultation Cardiovascular: regular rate and rhythm Gastrointestinal: soft, non-tender, bowel sounds, other (g tube site clean, dry and soft) Musculoskeletal: muscle weakness Extremities: normal pulses 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: confused (pleasant) Skin: other (poor turgor) Results Result Diagram: 02/21/19 0529 02/21/19 0529 Results 24hrs Laboratory Tests Test 02/21/19 05:29 White Blood Count 9.8 Red Blood Count 3.20 L Hemoglobin 8.9 L Hematocrit 27.6 L Mean Corpuscular Volume 86.3 Mean Corpuscular Hemoglobin 27.8 L Mean Corpuscular Hemoglobin Concent 32.2 Red Cell Distribution Width 15.9 H Platelet Count 263 Mean Platelet Volume 10.9 H Immature Granulocytes % 1.900 H Neutrophils % 76.1 Lymphocytes % 7.6 L Monocytes % 10.7 Eosinophils % 3.4 Basophils % 0.3 Nucleated Red Blood Cells % 1.5 H Immature Granulocytes # 0.190 H Neutrophils # 7.4 Lymphocytes # 0.7 L Monocytes # 1.1 H Eosinophils # 0.3 Basophils # 0.0 Nucleated Red Blood Cells # 0.2 H Sodium Level 132 L Potassium Level 3.9 Chloride Level 96 L Carbon Dioxide Level 30 Anion Gap 6 Blood Urea Nitrogen 66 H Creatinine 2.31 H Est Glomerular Filtrat Rate mL/min Glucose Level 145 Calcium Level 8.9 Medications Medication Current Medications IV Flush (NS 3 ml) 3 ml PER PROTOCOL IV ; Start 02/19/19 at 03:30 Lorazepam (Ativan) 0.5 mg Q8H PRN GTB .ANXIETY Last administered on 02/19/19 04:01; Admin Dose 0.5 MG; Start 02/19/19 at 03:30 Ondansetron HCl (Zofran Inj) 4 mg Q6H PRN IV NAUSEA/VOMITING; Start 02/19/19 at 03:30 Magnesium Hydroxide (Milk Of Mag) 30 ml DAILY PRN PO .CONSTIPATION; Start 02/19/19 at 03:30 Acetaminophen (Tylenol Tab) 325 mg Q4H PRN GTB FOR FEVER 100AND ABOVE Last administered on 02/20/19 20:13; Admin Dose 325 MG; Start 02/19/19 at 03:30 Acetaminophen (Tylenol Tab) 650 mg Q6H PRN GTB PAIN LEVEL 1-10/10 Last administered on 02/19/19 21:49; Admin Dose 650 MG; Start 02/19/19 at 03:30 Amlodipine Besylate (Norvasc) 5 mg BID GTB Last administered on 02/20/19 20:07; Admin Dose 5 MG; Start 02/19/19 at 09:00 Ascorbic Acid (Vitamin C) 500 mg DAILY GTB Last administered on 02/20/19 08:19; Admin Dose 500 MG; Start 02/19/19 at 09:00 Aspirin (Aspirin) 81 mg DAILY GTB Last administered on 02/20/19 08:19; Admin Dose 81 MG; Start 02/19/19 at 09:00 Atorvastatin Calcium (Lipitor) 40 mg QHS GTB Last administered on 02/20/19 20:06; Admin Dose 40 MG; Start 02/19/19 at 21:00 Ferrous Sulfate (Ferrous Sulfate (Ec)) 325 mg BID PO Last administered on 02/20/19 20:06; Admin Dose 325 MG; Start 02/19/19 at 09:00 Folic Acid (Folic Acid) 1 mg DAILY GTB Last administered on 02/20/19 08:19; Admin Dose 1 MG; Start 02/19/19 at 09:00 Guaifenesin/ Dextromethorphan (Robitussin Dm Liquid Cup) 5 ml Q4H GTB Last administered on 02/21/19 04:18; Admin Dose 5 ML; Start 02/19/19 at 03:30 Hydralazine HCl (Apresoline) 25 mg Q8 GTB Last administered on 02/21/19 05:27; Admin Dose 25 MG; Start 02/19/19 at 06:00 Lansoprazole (Prevacid) 30 mg DAILY@0600 GTB Last administered on 02/21/19 05:27; Admin Dose 30 MG; Start 02/19/19 at 06:00 Linagliptin (Tradjenta) 5 mg DAILY GTB Last administered on 02/20/19 08:18; Admin Dose 5 MG; Start 02/19/19 at 09:00 Lorazepam (Ativan) 0.5 mg HS PRN GTB ANXIETY Last administered on 02/20/19 23:12; Admin Dose 0.5 MG; Start 02/19/19 at 03:30 Magnesium Hydroxide (Milk Of Mag) 30 ml QHS GTB Last administered on 02/20/19 20:06; Admin Dose 30 ML; Start 02/19/19 at 21:00 Metoprolol Tartrate (Lopressor) 50 mg BID GTB Last administered on 02/20/19 20:07; Admin Dose 50 MG; Start 02/19/19 at 09:00 Olanzapine (Zyprexa) 5 mg DAILY GTB Last administered on 02/20/19 08:19; Admin Dose 5 MG; Start 02/19/19 at 09:00 Ondansetron HCl (Zofran Tab) 4 mg Q4H PRN GTB NAUSEA AND/OR VOMITING; Start 02/19/19 at 03:30 Sevelamer Carbonate (Renvela) 1.6 gm WITH MEALS GTB Last administered on 02/20/19 16:51; Admin Dose 1.6 GM; Start 02/19/19 at 08:00 Valproate Sodium (Depakene Liquid Cup) 250 mg Q8 GTB Last administered on 02/21/19 05:27; Admin Dose 250 MG; Start 02/19/19 at 06:00 Docusate Sodium (Colace Liquid Cup) 100 mg DAILY GTB Last administered on 02/20/19 08:17; Admin Dose 100 MG; Start 02/19/19 at 09:00 Docusate Sodium (Colace Liquid Cup) 100 mg Q12H PRN GTB CONSTIPATION; Start 02/19/19 at 04:00 Acetaminophen (Tylenol Tab) 650 mg Q6H PRN GTB .PAIN 1-3 OR TEMP Last administered on 02/19/19 11:57; Admin Dose 650 MG; Start 02/19/19 at 03:35 Meropenem/Sodium Chloride 50 ml @ 100 mls/hr Q12H IVPB Last administered on 02/21/19 05:27; Admin Dose 100 MLS/HR; Start 02/20/19 at 06:00 Caspofungin 50 mg/ Sodium Chloride 250 ml @ 250 mls/hr Q24H IVPB ; Start 02/21/19 at 17:00 Heparin Sodium (Porcine) (Heparin (1000 Units/ml)) 4,000 unit AFTER DIALYSIS CATHETER ; Start 02/20/19 at 16:00 TONY VENCES Feb 21, 2019 07:56
[2019-02-21] MEDS: DOCUSATE SODIUM 10 MG/ML (10ML CUP) GTB SCH (08:51)
[2019-02-21] MEDS: SEVELAMER CARBONATE 0.8 GM PKT GTB SCH ×3 (09:00→19:42)
[2019-02-21] MEDS: OLANZAPINE 5 MG TAB GTB SCH (09:01)
[2019-02-21] MEDS: METOPROLOL 50 MG TAB GTB SCH ×2 (09:01→21:00)
[2019-02-21] MEDS: ASCORBIC ACID 500 MG TAB GTB SCH (09:01)
[2019-02-21] MEDS: ASPIRIN 81 MG TAB GTB SCH (09:01)
[2019-02-21] MEDS: LINAGLIPTIN 5 MG TABLET GTB SCH (09:02)
[2019-02-21] MEDS: AMLODIPINE 5 MG TAB GTB SCH ×2 (09:05→21:00)
[2019-02-21] MEDS: FOLIC ACID 1 MG TAB GTB SCH (09:05)
[2019-02-21] MEDS: FERROUS SULFATE (EC) 325 MG TAB PO SCH ×2 (09:05→22:17)
[2019-02-21] MEDS: LORAZEPAM 0.5 MG TAB GTB PRN (09:06)
--- NOTE | 2019-02-21 15:07 | CONS ---
Assessment/Plan Assessment/Plan Assessment/Plan (Daily) ASSESSMENT AND PLAN: This is an 83-year-old female presented with: 1. Fevers, likely secondary to urinary tract infection, rule out line sepsis. Dominique inurine 2. End-stage renal disease on hemodialysis. 3. Urinary tract infection. 4. Hypertension. 5. Dementia. 6. Diabetes. 7. Diastolic heart failure. 8. Moderate protein energy malnutrition. 9. Osteoarthritis. Plan - bld cx pending - cw vanco/meropenam - started on cancidas - HD MWF Consultation Date/Type/Reason Admit Date/Time Feb 19, 2019 at 01:01 Initial Consult Date Date/Time of Note DATE: 02/21/19 TIME: 15:06 24 HR Interval Summary Free Text/Dictation No acute events Exam/Review of Systems Exam Vitals Vital Signs Date Temp Pulse Resp B/P (MAP) Pulse Ox O2 O2 Flow FiO2 Time Delivery Rate 02/21/19 89 12:01 02/21/19 98.3 16 136/60 96 11:19 (85) 02/21/19 Room Air 06:10 Intake and Output 02/20/19 02/20/19 02/21/19 1515:00 23:00 07:00 IntakeIntake Total 610 ml BalanceBalance 610 ml Exam GENERAL: Patient is frail, resting. HEENT: Normocephalic, atraumatic. HEART: Regular rate and rhythm. LUNGS: Clear to auscultation bilaterally. The patient has a G-tube in place. ABDOMEN. Binder up in the chest. EXTREMITIES: Has a left upper extremity Perm-A-Cath, muscle atrophy. Results Result Diagram: 02/21/19 0529 02/21/19 0529 Results 24hrs Laboratory Tests Test 02/21/19 05:29 White Blood Count 9.8 Red Blood Count 3.20 L Hemoglobin 8.9 L Hematocrit 27.6 L Mean Corpuscular Volume 86.3 Mean Corpuscular Hemoglobin 27.8 L Mean Corpuscular Hemoglobin Concent 32.2 Red Cell Distribution Width 15.9 H Platelet Count 263 Mean Platelet Volume 10.9 H Immature Granulocytes % 1.900 H Neutrophils % 76.1 Lymphocytes % 7.6 L Monocytes % 10.7 Eosinophils % 3.4 Basophils % 0.3 Nucleated Red Blood Cells % 1.5 H Immature Granulocytes # 0.190 H Neutrophils # 7.4 Lymphocytes # 0.7 L Monocytes # 1.1 H Eosinophils # 0.3 Basophils # 0.0 Nucleated Red Blood Cells # 0.2 H Sodium Level 132 L Potassium Level 3.9 Chloride Level 96 L Carbon Dioxide Level 30 Anion Gap 6 Blood Urea Nitrogen 66 H Creatinine 2.31 H Est Glomerular Filtrat Rate mL/min Glucose Level 145 Calcium Level 8.9 Ferritin 4490.0 H Vitamin B12 Level 893 Folate > 20.0 H Medications Medication Current Medications IV Flush (NS 3 ml) 3 ml PER PROTOCOL IV ; Start 02/19/19 at 03:30 Lorazepam (Ativan) 0.5 mg Q8H PRN GTB .ANXIETY Last administered on 02/21/19 09:06; Admin Dose 0.5 MG; Start 02/19/19 at 03:30 Ondansetron HCl (Zofran Inj) 4 mg Q6H PRN IV NAUSEA/VOMITING; Start 02/19/19 at 03:30 Magnesium Hydroxide (Milk Of Mag) 30 ml DAILY PRN PO .CONSTIPATION; Start 02/19/19 at 03:30 Acetaminophen (Tylenol Tab) 325 mg Q4H PRN GTB FOR FEVER 100AND ABOVE Last adm inistered on 02/20/19 20:13; Admin Dose 325 MG; Start 02/19/19 at 03:30 Acetaminophen (Tylenol Tab) 650 mg Q6H PRN GTB PAIN LEVEL 1-10/10 Last administered on 02/19/19 21:49; Admin Dose 650 MG; Start 02/19/19 at 03:30 Amlodipine Besylate (Norvasc) 5 mg BID GTB Last administered on 02/21/19 09:0 5; Admin Dose 5 MG; Start 02/19/19 at 09:00 Ascorbic Acid (Vitamin C) 500 mg DAILY GTB Last administered on 02/21/19 09:01; Admin Dose 500 MG; Start 02/19/19 at 09:00 Aspirin (Aspirin) 81 mg DAILY GTB Last administered on 02/21/19 09:01; Admin Dose 81 MG; Start 02/19/19 at 09:00 Atorvastatin Calcium (Lipitor) 40 mg QHS GTB Last administered on 02/20/19 20:06; Admin Dose 40 MG; Start 02/19/19 at 21:00 Ferrous Sulfate (Ferrous Sulfate (Ec)) 325 mg BID PO Last administered on 02/21/19 09:05; Admin Dose 325 MG; Start 02/19/19 at 09:00 Folic Acid (Folic Acid) 1 mg DAILY GTB Last administered on 02/21/19 09:05; Admin Dose 1 MG; Start 02/19/19 at 09:00 Guaifenesin/ Dextromethorphan (Robitussin Dm Liquid Cup) 5 ml Q4H GTB Last administered on 02/21/19 12:25; Admin Dose 5 ML; Start 02/19/19 at 03:30 Hydralazine HCl (Apresoline) 25 mg Q8 GTB Last administered on 02/21/19 13:34; Admin Dose 25 MG; Start 02/19/19 at 06:00 Lansoprazole (Prevacid) 30 mg DAILY@0600 GTB Last administered on 02/21/19 05:27; Admin Dose 30 MG; Start 02/19/19 at 06:00 Linagliptin (Tradjenta) 5 mg DAILY GTB Last administered on 02/21/19 09:02; Admin Dose 5 MG; Start 02/19/19 at 09:00 Lorazepam (Ativan) 0.5 mg HS PRN GTB ANXIETY Last administered on 02/20/19 23:12; Admin Dose 0.5 MG; Start 02/19/19 at 03:30 Magnesium Hydroxide (Milk Of Mag) 30 ml QHS GTB Last administered on 02/20/19 20:06; Admin Dose 30 ML; Start 02/19/19 at 21:00 Metoprolol Tartrate (Lopressor) 50 mg BID GTB Last administered on 02/21/19 09:01; Admin Dose 50 MG; Start 02/19/19 at 09:00 Olanzapine (Zyprexa) 5 mg DAILY GTB Last administered on 02/21/19 09:01; Admin Dose 5 MG; Start 02/19/19 at 09:00 Ondansetron HCl (Zofran Tab) 4 mg Q4H PRN GTB NAUSEA AND/OR VOMITING; Start 02/19/19 at 03:30 Sevelamer Carbonate (Renvela) 1.6 gm WITH MEALS GTB Last administered on 02/21/19 12:25; Admin Dose 1.6 GM; Start 02/19/19 at 08:00 Valproate Sodium (Depakene Liquid Cup) 250 mg Q8 GTB Last administered on 02/21/19at 13:34; Admin Dose 250 MG; Start 02/19/19 at 06:00 Docusate Sodium (Colace Liquid Cup) 100 mg DAILY GTB Last administered on 02/21/19at 08:51; Admin Dose 100 MG; Start 02/19/19 at 09:00 Docusate Sodium (Colace Liquid Cup) 100 mg Q12H PRN GTB CONSTIPATION; Start 02/19/19 at 04:00 Acetaminophen (Tylenol Tab) 650 mg Q6H PRN GTB .PAIN 1-3 OR TEMP Last administered on 02/19/19at 11:57; Admin Dose 650 MG; Start 02/19/19 at 03:35 Meropenem/Sodium Chloride 50 ml @ 100 mls/hr Q12H IVPB Last administered on 02/21/19at 05:27; Admin Dose 100 MLS/HR; Start 02/20/19 at 06:00 Caspofungin 50 mg/ Sodium Chloride 250 ml @ 250 mls/hr Q24H IVPB ; Start 02/21/19 at 17:00 Heparin Sodium (Porcine) (Heparin (1000 Units/ml)) 4,000 unit AFTER DIALYSIS CATHETER ; Start 02/20/19 at 16:00 JOSE RAUL ANDREWS MD Feb 21, 2019 15:07
--- NOTE | 2019-02-21 21:09 | PN ---
DATE: 02/21/2019 SUBJECTIVE: The patient is seen, currently receiving dialysis. The patient was started yesterday on Cancidas due to Dominique glabrata in the urine. The patient otherwise has no complaints. Again, the patient is currently being dialyzed. OBJECTIVE: VITAL SIGNS: Temperature 98.3, pulse 81, respirations 16, blood pressure 137/60, saturation 98%. T- max 100 yesterday. GENERAL: The patient is frail, pale. CARDIOVASCULAR: S1, S2, regular rate. LUNGS: Clear. ABDOMEN: Soft. G-tube in place. EXTREMITIES: No clubbing, cyanosis, or edema. She has some swelling of the left thigh. She had kailee lillie there. LABORATORIES: White count is 9.8, hemoglobin 8.9, hematocrit 28, platelet count of 263, neutrophil 7 6%, lymphocytes 8%. Chemistry: Sodium 132, potassium 3.9, chloride 96, bicarbonate 30, BUN is 66, c reatinine 2.31, glucose of 145. Urinalysis shows Dominique glabrata. Stool culture shows coliform. M RSA screening is positive. MEDICATIONS: Reviewed. 1. Heparin 5000 after dialysis. 2. Merrem dose per pharmacy. 3. Lipitor 40 mg at bedtime. 4. Milk of magnesia at bedtime. 5. Norvasc 5 mg daily. 6. Vitamin C 500 mg daily. 7. Aspirin 81 mg daily. 8. Zoloft 25 mg b.i.d. 9. Folic acid 1 mg daily. 10. Tradjenta 5 mg daily. 11. Lopressor 50 b.i.d. 12. Zyprexa 10 mg daily. 13. Colace as directed. 14. Renvela as directed. 15. Hydralazine as directed. 16. Caspofungin as directed. 17. Depakote 250 mg q.8h. 18. Colace 100 q.12h. p.r.n. 19. Tylenol p.r.n. 20. Zofran p.r.n. ASSESSMENT AND PLAN: This is an 83-year-old Bangl[place] female, with multiple medical issues including diabetes mellitus, end-stage renal disease, dementia, malnutrition, G-tube feeding, presented with ur inary tract infection. 1. Respiratory. Stable. O2 support as needed. 2. Methicillin-resistant Staphylococcus aureus of the nares. Bactroban ointment will be prescribed. 3. Infectious disease. The patient, according is being treated for UTI, Domiinque glabrata and also o n Merrem. If fever continues, we may add vancomycin as patient has positive aureus in the nares. 4. Anemia. Transfuse p.r.n. Continue Epogen per nephrology. Transfuse p.r.n. 5. End-stage renal disease, dialysis every Thursday, Thursday, Thursday. Currently being dialyzed. 6. Dysphagia. Continue G-tube feeding. 7. Anxiety. Continue psych medications. 8. Disposition, pending a fever and ongoing status. We will follow. ID to follow. Dictated By: DYLON HULL/MADAN Conf#: [id number] DID#: [id number] CC: JOSE RAUL ANDREWS; DYLON WALLS MD;*EndCC*
[2019-02-21] MEDS: ATORVASTATIN 40 MG TAB GTB SCH (22:15)
[2019-02-21] MEDS: MAGNESIUM HYDROXIDE 30ML CUP GTB SCH (22:16)
[2019-02-21] MEDS: CASPOFUNGIN 50 MG in SOD CHLORIDE 0.9% 250 ML IVPB SCH (23:12)
[2019-02-22] VITALS (14 sets, daily range): BP systolic 108–159; BP diastolic 62–70; PULSE 85–105; RESP 16–18
[2019-02-22] MEDS: LORAZEPAM 0.5 MG TAB GTB PRN ×2 (02:56→22:39)
[2019-02-22] MEDS: GUAIFENESIN/DM 5ML CUP GTB SCH ×6 (02:56→23:30)
[2019-02-22] MEDS: LANSOPRAZOLE 30 MG CAP GTB SCH (06:44)
[2019-02-22] MEDS: MEROPENEM 500MG/50 ML (PMX) 50 ML IVPB SCH ×2 (06:44→18:27)
[2019-02-22] MEDS: VALPROIC ACID LIQUID CUP 250 MG/5 ML CUP GTB SCH ×3 (06:44→22:30)
[2019-02-22] MEDS: SEVELAMER CARBONATE 0.8 GM PKT GTB SCH (08:24)
[2019-02-22] MEDS: OLANZAPINE 5 MG TAB GTB SCH (08:25)
[2019-02-22] MEDS: LINAGLIPTIN 5 MG TABLET GTB SCH (08:25)
[2019-02-22] MEDS: ASCORBIC ACID 500 MG TAB GTB SCH (08:25)
[2019-02-22] MEDS: FERROUS SULFATE (EC) 325 MG TAB PO SCH ×2 (08:25→22:31)
[2019-02-22] MEDS: METOPROLOL 50 MG TAB GTB SCH ×2 (08:25→21:00)
[2019-02-22] MEDS: ASPIRIN 81 MG TAB GTB SCH (08:26)
[2019-02-22] MEDS: FOLIC ACID 1 MG TAB GTB SCH (08:26)
[2019-02-22] MEDS: AMLODIPINE 5 MG TAB GTB SCH ×2 (08:26→22:32)
[2019-02-22] MEDS: DOCUSATE SODIUM 10 MG/ML (10ML CUP) GTB SCH (08:26)
--- NOTE | 2019-02-22 11:56 | CONS ---
Assessment/Plan Assessment/Plan Hospital Course (Demo Recall) 83 yo female presented with severe anemia Interval hx: HH stable. WBC wnl. Reticulocyte 2.6. ferritin 4490. On epogen. Pt had bm again. Despite speaking with RN yesterday, no FOB sent. D/W Desirae SHRESTHA. Pt denies n/v and abd pain. No overt signs of GI bleeding. Tolerating tube feeds at 30cc/hr. 1. Severe anemia,acute on chronic -GI bleed vs chronic disease -stable -no signs of GI bleeding noted per RN -retic 2.6, ferritin 4490 2. End-stage renal disease on dialysis. 3. Urinary tract infection. -positive yeast 4. Dysphagia, status post percutaneous endoscopic gastrostomy tube placement. 5. Hypertension. 6. Behavioral disorder. PLAN: Continue with PPI Anemia work up noted. FOB re ordered. Iron panel ordered. Aspiration precautions Pt examined and plan of care discussed with Dr. Baird. Consultation Date/Type/Reason Admit Date/Time Feb 19, 2019 at 01:01 Initial Consult Date Date/Time of Note DATE: 02/22/19 TIME: 11:50 Exam/Review of Systems Exam Vitals Vital Signs Date Temp Pulse Resp B/P (MAP) Pulse Ox O2 O2 Flow FiO2 Time Delivery Rate 02/22/19 98.4 89 16 149/68 97 11:49 (95) 02/21/19 Room Air 22:00 Intake and Output 02/21/19 02/21/19 02/22/19 1515:00 23:00 07:00 IntakeIntake Total 560 ml 560 ml OutputOutput Total 1800 ml BalanceBalance -1240 ml 560 ml Constitutional: alert Psych: no complaints Head: normocephalic Eyes: nl sclera, PERRL Respiratory: clear to auscultation Cardiovascular: regular rate and rhythm Gastrointestinal: soft, non-tender Musculoskeletal: muscle weakness 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: confused Results Result Diagram: 02/22/19 0506 02/22/19 0506 Results 24hrs Laboratory Tests Test 02/22/19 05:06 02/22/19 07:38 White Blood Count 10.1 Red Blood Count 3.15 L Hemoglobin 8.8 L Hematocrit 27.2 L Mean Corpuscular Volume 86.3 Mean Corpuscular Hemoglobin 27.9 L Mean Corpuscular Hemoglobin Concent 32.4 Red Cell Distribution Width 16.0 H Platelet Count 257 Mean Platelet Volume 10.6 H Immature Granulocytes % 2.300 H Neutrophils % 76.5 Lymphocytes % 8.3 L Monocytes % 10.4 Eosinophils % 2.1 Basophils % 0.4 Nucleated Red Blood Cells % 1.9 H Immature Granulocytes # 0.230 H Neutrophils # 7.7 H Lymphocytes # 0.8 Monocytes # 1.1 H Eosinophils # 0.2 Basophils # 0.0 Nucleated Red Blood Cells # 0.2 H Sodium Level 137 Potassium Level 4.1 Chloride Level 103 Carbon Dioxide Level 30 Anion Gap 4 L Blood Urea Nitrogen 27 #H Creatinine 1.13 #H Est Glomerular Filtrat Rate mL/min Glucose Level 145 Calcium Level 8.7 Phosphorus Level 0.8 #L Magnesium Level 2.8 H Lab Scanned Report BLOOD TRANSFUSION Medications Medication Current Medications IV Flush (NS 3 ml) 3 ml PER PROTOCOL IV ; Start 02/19/19 at 03:30 Lorazepam (Ativan) 0.5 mg Q8H PRN GTB .ANXIETY Last administered on 02/21/19 09:06; Admin Dose 0.5 MG; Start 02/19/19 at 03:30 Ondansetron HCl (Zofran Inj) 4 mg Q6H PRN IV NAUSEA/VOMITING; Start 02/19/19 at 03:30 Magnesium Hydroxide (Milk Of Mag) 30 ml DAILY PRN PO .CONSTIPATION; Start 02/19/19 at 03:30 Acetaminophen (Tylenol Tab) 325 mg Q4H PRN GTB FOR FEVER 100AND ABOVE Last administered on 02/20/19 20:13; Admin Dose 325 MG; Start 02/19/19 at 03:30 Acetaminophen (Tylenol Tab) 650 mg Q6H PRN GTB PAIN LEVEL 1-10/10 Last administered on 02/19/19 21:49; Admin Dose 650 MG; Start 02/19/19 at 03:30 Amlodipine Besylate (Norvasc) 5 mg BID GTB Last administered on 02/22/19 08:26; Admin Dose 5 MG; Start 02/19/19 at 09:00 Ascorbic Acid (Vitamin C) 500 mg DAILY GTB Last administered on 02/22/19 08:25; Admin Dose 500 MG; Start 02/19/19 at 09:00 Aspirin (Aspirin) 81 mg DAILY GTB Last administered on 02/22/19 08:26; Admin Dose 81 MG; Start 02/19/19 at 09:00 Atorvastatin Calcium (Lipitor) 40 mg QHS GTB Last administered on 02/21/19 22:15; Admin Dose 40 MG; Start 02/19/19 at 21:00 Ferrous Sulfate (Ferrous Sulfate (Ec)) 325 mg BID PO Last administered on 02/22/19 08:25; Admin Dose 325 MG; Start 02/19/19 at 09:00 Folic Acid (Folic Acid) 1 mg DAILY GTB Last administered on 02/22/19 08:26; Admin Dose 1 MG; Start 02/19/19 at 09:00 Guaifenesin/ Dextromethorphan (Robitussin Dm Liquid Cup) 5 ml Q4H GTB Last administered on 02/22/19 06:44; Admin Dose 5 ML; Start 02/19/19 at 03:30 Hydralazine HCl (Apresoline) 25 mg Q8 GTB Last administered on 02/22/19 06:45; Admin Dose 25 MG; Start 02/19/19 at 06:00 Lansoprazole (Prevacid) 30 mg DAILY@0600 GTB Last administered on 02/22/19 06:44; Admin Dose 30 MG; Start 02/19/19 at 06:00 Linagliptin (Tradjenta) 5 mg DAILY GTB Last administered on 02/22/19 08:25; Admin Dose 5 MG; Start 02/19/19 at 09:00 Lorazepam (Ativan) 0.5 mg HS PRN GTB ANXIETY Last administered on 02/22/19 02:56; Admin Dose 0.5 MG; Start 02/19/19 at 03:30 Magnesium Hydroxide (Milk Of Mag) 30 ml QHS GTB Last administered on 02/21/19 22:16; Admin Dose 30 ML; Start 02/19/19 at 21:00 Metoprolol Tartrate (Lopressor) 50 mg BID GTB Last administered on 02/22/19 08:25; Admin Dose 50 MG; Start 02/19/19 at 09:00 Olanzapine (Zyprexa) 5 mg DAILY GTB Last administered on 02/22/19 08:25; Admin Dose 5 MG; Start 02/19/19 at 09:00 Ondansetron HCl (Zofran Tab) 4 mg Q4H PRN GTB NAUSEA AND/OR VOMITING; Start 02/19/19 at 03:30 Valproate Sodium (Depakene Liquid Cup) 250 mg Q8 GTB Last administered on 02/22/19 06:44; Admin Dose 250 MG; Start 02/19/19 at 06:00 Docusate Sodium (Colace Liquid Cup) 100 mg DAILY GTB Last administered on 02/22/19 08:26; Admin Dose 100 MG; Start 02/19/19 at 09:00 Docusate Sodium (Colace Liquid Cup) 100 mg Q12H PRN GTB CONSTIPATION; Start 02/19/19 at 04:00 Acetaminophen (Tylenol Tab) 650 mg Q6H PRN GTB .PAIN 1-3 OR TEMP Last administered on 02/19/19at 11:57; Admin Dose 650 MG; Start 02/19/19 at 03:35 Meropenem/Sodium Chloride 50 ml @ 100 mls/hr Q12H IVPB Last administered on 02/22/19 06:44; Admin Dose 100 MLS/HR; Start 02/20/19 at 06:00 Caspofungin 50 mg/ Sodium Chloride 250 ml @ 250 mls/hr Q24H IVPB Last administered on 02/21/19 23:12; Admin Dose 250 MLS/HR; Start 02/21/19 at 17:00 Heparin Sodium (Porcine) (Heparin (1000 Units/ml)) 4,000 unit AFTER DIALYSIS CATHETER Last administered on 02/21/19at 20:48; Admin Dose 4,000 UNIT; Start 02/20/19 at 16:00 Sodium Phosphate (Neutra-Phos) 500 mg TID PO ; Start 02/22/19 at 13:00; Stop 02/23/19 at 12:59 TONY VENCES Feb 22, 2019 11:56
[2019-02-22] MEDS: NEUTRA-PHOS 250 MG PACKET PO SCH ×2 (12:21→22:39)
[2019-02-22] MEDS ORDERED: VANCOMYCIN IV PER PHARMACY XX SCH (14:00)
[2019-02-22] MEDS: MUPIROCIN 2% 22 GM OINT TOP SCH ×2 (14:46→22:30)
[2019-02-22] MEDS ORDERED: VANCOMYCIN 750 MG (PMX) 250 ML IVPB SCH (15:00)
--- NOTE | 2019-02-22 15:26 | CONS ---
Assessment/Plan Assessment/Plan Hospital Course (Demo Recall) No acute events overnight patient is sleeping arousable looks comfortable status post hemodialysis earlier. WBC 10.1 H&H 8.8 and 27.2 platelets 257 neutrophils 76.5 Indwelling: Left subclavian permacath, PEG Microbiology: Urine culture on admission grew Dominique glabrata blood culture growing gram-positive cocci in pairs and chains Antimicrobials: Vancomycin, Cancidas Chest x-ray on admission revealed no definite evidence of pneumonia or CHF Physical examination: This is a chronically ill-appearing wasted elderly woman who is in no distress. Head atraumatic normocephalic. Neck is supple. Chest rise symmetrical breath sounds clear, diminished bases. Heart: S1-S2. Abdomen soft bowel sounds present. Extremities without cyanosis edema. Assessment: 1. Sepsis, present on admission 2. Recurrent UTI 3. Gram-positive cocci bacteremia, rule out infected line 4. End-stage renal disease, hemodialysis dependent 5. Anemia 6. 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 Plan: Patient is stable, on appropriate antibiotic regimen, will await for final cultures and repeat blood cultures from [facility] next hemodialysis Consultation Date/Type/Reason Admit Date/Time Feb 19, 2019 at 01:01 Initial Consult Date Type of Consult id Date/Time of Note DATE: 02/22/19 TIME: 15:25 Exam/Review of Systems Exam Vitals Vital Signs Date Temp Pulse Resp B/P (MAP) Pulse Ox O2 O2 Flow FiO2 Time Delivery Rate 02/22/19 90 12:00 02/22/19 98.4 16 149/68 97 11:49 (95) 02/21/19 Room Air 22:00 Intake and Output 02/21/19 02/21/19 02/22/19 1515:00 23:00 07:00 IntakeIntake Total 560 ml 560 ml OutputOutput Total 1800 ml BalanceBalance -1240 ml 560 ml Results Result Diagram: 02/22/19 0506 02/22/19 0506 Results 24hrs Laboratory Tests Test 02/22/19 05:02 02/22/19 05:06 02/22/19 07:38 Iron Level 67 Total Iron Binding Capacity 184 L Percent Iron Saturation 36 White Blood Count 10.1 Red Blood Count 3.15 L Hemoglobin 8.8 L Hematocrit 27.2 L Mean Corpuscular Volume 86.3 Mean Corpuscular Hemoglobin 27.9 L Mean Corpuscular 32.4 Hemoglobin Concent Red Cell Distribution Width 16.0 H Platelet Count 257 Mean Platelet Volume 10.6 H Immature Granulocytes % 2.300 H Neutrophils % 76.5 Lymphocytes % 8.3 L Monocytes % 10.4 Eosinophils % 2.1 Basophils % 0.4 Nucleated Red Blood Cells % 1.9 H Immature Granulocytes # 0.230 H Neutrophils # 7.7 H Lymphocytes # 0.8 Monocytes # 1.1 H Eosinophils # 0.2 Basophils # 0.0 Nucleated Red Blood Cells # 0.2 H Sodium Level 137 Potassium Level 4.1 Chloride Level 103 Carbon Dioxide Level 30 Anion Gap 4 L Blood Urea Nitrogen 27 #H Creatinine 1.13 #H Est Glomerular Filtrat Rate mL/min Glucose Level 145 Calcium Level 8.7 Phosphorus Level 0.8 #L Magnesium Level 2.8 H Lab Scanned Report BLOOD TRANSFUSION Medications Medication Current Medications IV Flush (NS 3 ml) 3 ml PER PROTOCOL IV ; Start 02/19/19 at 03:30 Lorazepam (Ativan) 0.5 mg Q8H PRN GTB .ANXIETY Last administered on 02/21/19at 09:06; Admin Dose 0.5 MG; Start 02/19/19 at 03:30 Ondansetron HCl (Zofran Inj) 4 mg Q6H PRN IV NAUSEA/VOMITING; Start 02/19/19 at 03:30 Magnesium Hydroxide (Milk Of Mag) 30 ml DAILY PRN PO .CONSTIPATION; Start 02/19/19 at 03:30 Acetaminophen (Tylenol Tab) 325 mg Q4H PRN GTB FOR FEVER 100AND ABOVE Last administered on 02/20/19at 20:13; Admin Dose 325 MG; Start 02/19/19 at 03:30 Acetaminophen (Tylenol Tab) 650 mg Q6H PRN GTB PAIN LEVEL 1-10/10 Last administered on 02/19/19at 21:49; Admin Dose 650 MG; Start 02/19/19 at 03:30 Amlodipine Besylate (Norvasc) 5 mg BID GTB Last administered on 02/22/19 08:26; Admin Dose 5 MG; Start 02/19/19 at 09:00 Ascorbic Acid (Vitamin C) 500 mg DAILY GTB Last administered on 02/22/19at 08:25; Admin Dose 500 MG; Start 02/19/19 at 09:00 Aspirin (Aspirin) 81 mg DAILY GTB Last administered on 02/22/19 08:26; Admin Dose 81 MG; Start 02/19/19 at 09:00 Atorvastatin Calcium (Lipitor) 40 mg QHS GTB Last administered on 02/21/19 22:15; Admin Dose 40 MG; Start 02/19/19 at 21:00 Ferrous Sulfate (Ferrous Sulfate (Ec)) 325 mg BID PO Last administered on 02/22/19 08:25; Admin Dose 325 MG; Start 02/19/19 at 09:00 Folic Acid (Folic Acid) 1 mg DAILY GTB Last administered on 02/22/19 08:26; Admin Dose 1 MG; Start 02/19/19 at 09:00 Guaifenesin/ Dextromethorphan (Robitussin Dm Liquid Cup) 5 ml Q4H GTB Last administered on 02/22/19 14:41; Admin Dose 5 ML; Start 02/19/19 at 03:30 Hydralazine HCl (Apresoline) 25 mg Q8 GTB Last administered on 02/22/19 13:04; Admin Dose 25 MG; Start 02/19/19 at 06:00 Lansoprazole (Prevacid) 30 mg DAILY@0600 GTB Last administered on 02/22/19 06:44; Admin Dose 30 MG; Start 02/19/19 at 06:00 Linagliptin (Tradjenta) 5 mg DAILY GTB Last administered on 02/22/19 08:25; Admin Dose 5 MG; Start 02/19/19 at 09:00 Lorazepam (Ativan) 0.5 mg HS PRN GTB ANXIETY Last administered on 02/22/19 02:56; Admin Dose 0.5 MG; Start 02/19/19 at 03:30 Magnesium Hydroxide (Milk Of Mag) 30 ml QHS GTB Last administered on 02/21/19 22:16; Admin Dose 30 ML; Start 02/19/19 at 21:00 Metoprolol Tartrate (Lopressor) 50 mg BID GTB Last administered on 02/22/19 08:25; Admin Dose 50 MG; Start 02/19/19 at 09:00 Olanzapine (Zyprexa) 5 mg DAILY GTB Last administered on 02/22/19 08:25; Admin Dose 5 MG; Start 02/19/19 at 09:00 Ondansetron HCl (Zofran Tab) 4 mg Q4H PRN GTB NAUSEA AND/OR VOMITING; Start 02/19/19 at 03:30 Valproate Sodium (Depakene Liquid Cup) 250 mg Q8 GTB Last administered on 02/22/19at 13:04; Admin Dose 250 MG; Start 02/19/19 at 06:00 Docusate Sodium (Colace Liquid Cup) 100 mg DAILY GTB Last administered on 02/22/19 08:26; Admin Dose 100 MG; Start 02/19/19 at 09:00 Docusate Sodium (Colace Liquid Cup) 100 mg Q12H PRN GTB CONSTIPATION; Start 02/19/19 at 04:00 Acetaminophen (Tylenol Tab) 650 mg Q6H PRN GTB .PAIN 1-3 OR TEMP Last administered on 02/19/19 11:57; Admin Dose 650 MG; Start 02/19/19 at 03:35 Meropenem/Sodium Chloride 50 ml @ 100 mls/hr Q12H IVPB Last administered on 02/22/19 06:44; Admin Dose 100 MLS/HR; Start 02/20/19 at 06:00 Caspofungin 50 mg/ Sodium Chloride 250 ml @ 250 mls/hr Q24H IVPB Last administered on 02/21/19 23:12; Admin Dose 250 MLS/HR; Start 02/21/19 at 17:00 Heparin Sodium (Porcine) (Heparin (1000 Units/ml)) 4,000 unit AFTER DIALYSIS CATHETER Last administered on 02/21/19 20:48; Admin Dose 4,000 UNIT; Start 02/20/19 at 16:00 Sodium Phosphate (Neutra-Phos) 500 mg TID PO Last administered on 02/22/19 12:21; Admin Dose 500 MG; Start 02/22/19 at 13:00; Stop 02/23/19 at 12:59 Vancomycin HCl (Vanco Iv Per Pharmacy) VANCOMYCIN PER PHARMACY PER PROTOCOL XX ; Start 02/22/19 at 14:00 Mupirocin (Bactroban) 1 applic BID TOP Last administered on 02/22/19at 14:46; Admin Dose 1 APPLIC; Start 02/22/19 at 14:00 Vancomycin/Sodium Chloride 250 ml @ 125 mls/hr NOW IVPB ; Start 02/22/19 at 15:00; Stop 02/22/19 at 23:00 PHYLICIA HOLCOMB NP Feb 22, 2019 15:26
--- NOTE | 2019-02-22 16:43 | PN ---
DATE: 02/22/2019 SUBJECTIVE: Patient seen. Unfortunately, the patient has positive blood cultures dated from yesterd ay showing gram-positive cocci in pairs and chains. ID is following. Will repeat blood cultures. T he patient otherwise is alert, confused, no acute events. PHYSICAL EXAMINATION: VITAL SIGNS: Temperature 98.4, pulse 90, respiration 16, blood pressure 149/68, saturation 97%. GENERAL: Patient is in no acute distress, frail, pale. CARDIOVASCULAR: S1, S2, regular rate. The patient with left upper chest Perm-A-Cath. ABDOMEN: Soft. G-tube in place. EXTREMITIES: No clubbing, cyanosis, or edema. Patient with severe caloric-protein malnutrition. LABORATORY DATA: White count 10.1, hemoglobin 8.8, hematocrit 27, platelet count 257/77% eos, neutro phils 68%. Chemistry: Sodium 137, potassium 4.1, chloride 3, bicarbonate 30, BUN is 27, creatinine 1.13, glucose 145. Phosphorus is low at 0.8. The patient's cultures as above. Patient also has pos itive MRSA of the nares. MEDICATIONS: Reviewed include: 1. Neutra-Phos 500 t.i.d. 2. Caspofungin IV dosed per pharmacy. 3. Heparin with dialysis. 4. Merrem dosed per pharmacy. 5. Lipitor. 6. Milk of magnesia. 7. Norvasc. 8. Vitamin C. 9. Aspirin. 10. Bowen catheter. 11. Gentle Lopressor. 12. Zyprexa. 13. Colace. 14. Hydralazine. 15. Prevacid. 16. Depakote. 17. Tylenol. Medications p.r.n. were reviewed as well. ASSESSMENT AND PLAN: This is an 83-year-old [place]ian female with history of vascular dementia, diabe edelmira mellitus, end-stage renal disease, malnutrition, G-tube feeding, with recurrent hospitalizations for bacteremia, fungemia, urinary tract infection,. Overall, very sick. 1. Respiratory. Stable. Continue O2 support as needed. 2. Cardiovascular. Vitals are stable. Continue heparin for DVT prophylaxis. Continue medications for blood pressure. Otherwise, vitals are stable. 3. Infectious disease. The patient with bacteremia, currently on Cancidas and Merrem. Dr. Proctor i s following. May consider changing medications to Zosyn. Bactroban ointment to the nares. Repeat b lood cultures. 4. Anemia. Transfuse p.r.n. GI is following. On PPI, Epogen for her anemia. 5. End-stage renal disease, dialysis every Thursday, Thursday and Thursday. Next dialysis tomorrow. M onitor electrolytes. Patient with hypophosphatemia, phosphorus supplements are being given. 6. Dysphagia. Continue G-tube feeding at 30 mL an hour. Continue aspiration precautions. 7. Anxiety. Continue psych meds. 8. Disposition. Once cultures are negative may need to remove the Perm-A-Cath if continues to be ba cteremic. We will follow. Long-term prognosis is guarded. Dictated By: DYLON HULL/MADAN Conf#: [id number] DID#: [id number] CC: DYLON WALLS MD;*EndCC*
[2019-02-22] MEDS: CASPOFUNGIN 50 MG in SOD CHLORIDE 0.9% 250 ML IVPB SCH (17:41)
--- NOTE | 2019-02-22 17:47 | CONS ---
Assessment/Plan Assessment/Plan Assessment/Plan (Daily) Hospital Course (Demo Recall) 1. Fevers, likely secondary to urinary tract infection, now bld cx positive gram + 2. End-stage renal disease on hemodialysis. 3. Urinary tract infection. 4. Hypertension. 5. Dementia. 6. Diabetes mellitus type II. 7. Diastolic heart failure. 8. Moderate protein energy malnutrition with cachexia. 9. Osteoarthritis. 10. GT status Assessment/Plan (Daily) -telemetry. -c/w meropenem./vanco -Urine cultures have been sent, yeast . - wait for final sensitive and suscepbility - skip will need permacath change - HD tmw Consultation Date/Type/Reason Admit Date/Time Feb 19, 2019 at 01:01 Initial Consult Date Date/Time of Note DATE: 02/22/19 TIME: 17:44 24 HR Interval Summary Free Text/Dictation Cultures positive Exam/Review of Systems Exam Vitals Vital Signs Date Temp Pulse Resp B/P (MAP) Pulse Ox O2 O2 Flow FiO2 Time Delivery Rate 02/22/19 87 17:19 02/22/19 98.0 17 159/68 97 15:54 (98) 02/21/19 Room Air 22:00 Intake and Output 02/21/19 02/21/19 02/22/19 1515:00 23:00 07:00 IntakeIntake Total 560 ml 560 ml OutputOutput Total 1800 ml BalanceBalance -1240 ml 560 ml Exam Exam GENERAL: Patient is frail, resting. HEENT: Normocephalic, atraumatic. HEART: Regular rate and rhythm. LUNGS: Clear to auscultation bilaterally. The patient has a G-tube in place. ABDOMEN. Binder up in the chest. EXTREMITIES: Has a left upper extremity Perm-A-Cath, muscle atrophy. Results Result Diagram: 02/22/19 0506 02/22/19 0506 Results 24hrs Laboratory Tests Test 02/22/19 05:02 02/22/19 05:06 02/22/19 07:38 Iron Level 67 Total Iron Binding Capacity 184 L Percent Iron Saturation 36 White Blood Count 10.1 Red Blood Count 3.15 L Hemoglobin 8.8 L Hematocrit 27.2 L Mean Corpuscular Volume 86.3 Mean Corpuscular Hemoglobin 27.9 L Mean Corpuscular 32.4 Hemoglobin Concent Red Cell Distribution Width 16.0 H Platelet Count 257 Mean Platelet Volume 10.6 H Immature Granulocytes % 2.300 H Neutrophils % 76.5 Lymphocytes % 8.3 L Monocytes % 10.4 Eosinophils % 2.1 Basophils % 0.4 Nucleated Red Blood Cells % 1.9 H Immature Granulocytes # 0.230 H Neutrophils # 7.7 H Lymphocytes # 0.8 Monocytes # 1.1 H Eosinophils # 0.2 Basophils # 0.0 Nucleated Red Blood Cells # 0.2 H Sodium Level 137 Potassium Level 4.1 Chloride Level 103 Carbon Dioxide Level 30 Anion Gap 4 L Blood Urea Nitrogen 27 #H Creatinine 1.13 #H Est Glomerular Filtrat Rate mL/min Glucose Level 145 Calcium Level 8.7 Phosphorus Level 0.8 #L Magnesium Level 2.8 H Lab Scanned Report BLOOD TRANSFUSION Medications Medication Current Medications IV Flush (NS 3 ml) 3 ml PER PROTOCOL IV ; Start 02/19/19 at 03:30 Lorazepam (Ativan) 0.5 mg Q8H PRN GTB .ANXIETY Last administered on 02/21/19 09:06; Admin Dose 0.5 MG; Start 02/19/19 at 03:30 Ondansetron HCl (Zofran Inj) 4 mg Q6H PRN IV NAUSEA/VOMITING; Start 02/19/19 at 03:30 Acetaminophen (Tylenol Tab) 325 mg Q4H PRN GTB FOR FEVER 100AND ABOVE Last administered on 02/20/19 20:13; Admin Dose 325 MG; Start 02/19/19 at 03:30 Acetaminophen (Tylenol Tab) 650 mg Q6H PRN GTB PAIN LEVEL 1-10/10 Last administered on 02/19/19at 21:49; Admin Dose 650 MG; Start 02/19/19 at 03:30 Amlodipine Besylate (Norvasc) 5 mg BID GTB Last administered on 02/22/19 08:26; Admin Dose 5 MG; Start 02/19/19 at 09:00 Ascorbic Acid (Vitamin C) 500 mg DAILY GTB Last administered on 02/22/19 08:25; Admin Dose 500 MG; Start 02/19/19 at 09:00 Aspirin (Aspirin) 81 mg DAILY GTB Last administered on 02/22/19 08:26; Admin Dose 81 MG; Start 02/19/19 at 09:00 Atorvastatin Calcium (Lipitor) 40 mg QHS GTB Last administered on 02/21/19 22:15; Admin Dose 40 MG; Start 02/19/19 at 21:00 Ferrous Sulfate (Ferrous Sulfate (Ec)) 325 mg BID PO Last administered on 02/22/19 08:25; Admin Dose 325 MG; Start 02/19/19 at 09:00 Folic Acid (Folic Acid) 1 mg DAILY GTB Last administered on 02/22/19 08:26; Admin Dose 1 MG; Start 02/19/19 at 09:00 Guaifenesin/ Dextromethorphan (Robitussin Dm Liquid Cup) 5 ml Q4H GTB Last administered on 02/22/19 14:41; Admin Dose 5 ML; Start 02/19/19 at 03:30 Hydralazine HCl (Apresoline) 25 mg Q8 GTB Last administered on 02/22/19 13:04; Admin Dose 25 MG; Start 02/19/19 at 06:00 Lansoprazole (Prevacid) 30 mg DAILY@0600 GTB Last administered on 02/22/19 06:44; Admin Dose 30 MG; Start 02/19/19 at 06:00 Linagliptin (Tradjenta) 5 mg DAILY GTB Last administered on 02/22/19 08:25; Admin Dose 5 MG; Start 02/19/19 at 09:00 Lorazepam (Ativan) 0.5 mg HS PRN GTB ANXIETY Last administered on 02/22/19 02:56; Admin Dose 0.5 MG; Start 02/19/19 at 03:30 Magnesium Hydroxide (Milk Of Mag) 30 ml QHS GTB Last administered on 02/21/19 22:16; Admin Dose 30 ML; Start 02/19/19 at 21:00 Metoprolol Tartrate (Lopressor) 50 mg BID GTB Last administered on 02/22/19 08:25; Admin Dose 50 MG; Start 02/19/19 at 09:00 Olanzapine (Zyprexa) 5 mg DAILY GTB Last administered on 02/22/19 08:25; Admin Dose 5 MG; Start 02/19/19 at 09:00 Ondansetron HCl (Zofran Tab) 4 mg Q4H PRN GTB NAUSEA AND/OR VOMITING; Start 02/19/19 at 03:30 Valproate Sodium (Depakene Liquid Cup) 250 mg Q8 GTB Last administered on 02/22/19 13:04; Admin Dose 250 MG; Start 02/19/19 at 06:00 Docusate Sodium (Colace Liquid Cup) 100 mg DAILY GTB Last administered on 02/22/19 08:26; Admin Dose 100 MG; Start 02/19/19 at 09:00 Docusate Sodium (Colace Liquid Cup) 100 mg Q12H PRN GTB CONSTIPATION; Start 02/19/19 at 04:00 Acetaminophen (Tylenol Tab) 650 mg Q6H PRN GTB .PAIN 1-3 OR TEMP Last administered on 02/19/19 11:57; Admin Dose 650 MG; Start 02/19/19 at 03:35 Meropenem/Sodium Chloride 50 ml @ 100 mls/hr Q12H IVPB Last administered on 02/22/19 06:44; Admin Dose 100 MLS/HR; Start 02/20/19 at 06:00 Caspofungin 50 mg/ Sodium Chloride 250 ml @ 250 mls/hr Q24H IVPB Last administered on 02/21/19 23:12; Admin Dose 250 MLS/HR; Start 02/21/19 at 17:00 Heparin Sodium (Porcine) (Heparin (1000 Units/ml)) 4,000 unit AFTER DIALYSIS CATHETER Last administered on 02/21/19 20:48; Admin Dose 4,000 UNIT; Start 02/20/19 at 16:00 Sodium Phosphate (Neutra-Phos) 500 mg TID PO Last administered on 02/22/19 12:21; Admin Dose 500 MG; Start 02/22/19 at 13:00; Stop 02/23/19 at 12:59 Vancomycin HCl (Vanco Iv Per Pharmacy) VANCOMYCIN PER PHARMACY PER PROTOCOL XX ; Start 02/22/19 at 14:00 Mupirocin (Bactroban) 1 applic BID TOP Last administered on 02/22/19 14:46; Admin Dose 1 APPLIC; Start 02/22/19 at 14:00 Vancomycin/Sodium Chloride 250 ml @ 125 mls/hr NOW IVPB Last administered on 02/22/19 16:33; Admin Dose 125 MLS/HR; Start 02/22/19 at 15:00; Stop 02/22/19 at 23:00 JOSE RAUL ANDREWS MD Feb 22, 2019 17:47
[2019-02-22] MEDS: MAGNESIUM HYDROXIDE 30ML CUP GTB SCH (21:00)
[2019-02-22] MEDS: ATORVASTATIN 40 MG TAB GTB SCH (22:31)
[2019-02-23] VITALS (25 sets, daily range): BP systolic 95–169; BP diastolic 37–70; PULSE 80–101; RESP 16–22
[2019-02-23] MEDS: GUAIFENESIN/DM 5ML CUP GTB SCH ×6 (04:28→23:42)
[2019-02-23] MEDS: MEROPENEM 500MG/50 ML (PMX) 50 ML IVPB SCH ×2 (06:40→18:58)
[2019-02-23] MEDS: LANSOPRAZOLE 30 MG CAP GTB SCH (06:40)
[2019-02-23] MEDS: VALPROIC ACID LIQUID CUP 250 MG/5 ML CUP GTB SCH ×3 (06:41→20:57)
[2019-02-23] MEDS: DOCUSATE SODIUM 10 MG/ML (10ML CUP) GTB SCH (08:42)
[2019-02-23] MEDS: MUPIROCIN 2% 22 GM OINT TOP SCH ×2 (08:42→20:58)
[2019-02-23] MEDS: ASPIRIN 81 MG TAB GTB SCH (08:43)
[2019-02-23] MEDS: FOLIC ACID 1 MG TAB GTB SCH (08:43)
[2019-02-23] MEDS: NEUTRA-PHOS 250 MG PACKET PO SCH (08:43)
[2019-02-23] MEDS: OLANZAPINE 5 MG TAB GTB SCH (08:43)
[2019-02-23] MEDS: FERROUS SULFATE (EC) 325 MG TAB PO SCH ×2 (08:43→20:57)
[2019-02-23] MEDS: ASCORBIC ACID 500 MG TAB GTB SCH (08:43)
[2019-02-23] MEDS: LINAGLIPTIN 5 MG TABLET GTB SCH (08:44)
[2019-02-23] MEDS: AMLODIPINE 5 MG TAB GTB SCH ×2 (08:45→20:58)
[2019-02-23] MEDS: METOPROLOL 50 MG TAB GTB SCH ×2 (08:45→20:58)
--- NOTE | 2019-02-23 11:48 | PQ ---
Date/Time of Note Date/Time of Note DATE: 02/23/19 TIME: 11:40 Physician Query Documentation Clarification A review of the medical record found a need for documentation clarification. 83F with UTI: Urine culture shows yeast, greater than 100,000 Positive blood cultures showing gram-positive cocci in pairs and chains. currently on Cancidas and Merrem On Admission: T: 100.3, WBC: 16, HR: 91, RR: 20 Per ID assessment 02/22/19: Sepsis, present on admission Please further specify if you agree with the above assessment of Sepsis, Present on Admission (x ) YES ( ) NO ( ) OTHER: Please provide your response by clicking edit document, making your choice (x ), clicking ok/save and finally clicking sign. You may alsodocument your response on your progress notes. Thank you for your time. Sincerely, Cherelle Cuello CCDS CDI Specialist [address] [phone] ext. [phone] [email or web address] CHERELLE CUELLO Feb 23, 2019 11:48 DYLON WALLS MD Feb 23, 2019 16:20
--- NOTE | 2019-02-23 11:54 | PQ ---
Date/Time of Note Date/Time of Note DATE: 02/23/19 TIME: 11:48 Physician Query Documentation Clarification A review of the medical record found documentation indicating the followinF with UTI: Urine culture shows yeast, greater than 100,000 The patient has positive blood cultures showing gram-positive cocci in pairs and chains. Per RD Documentation: BMI 16.4 Muscle wasting Severe Subcutaneous fat loss Severe Functional/mobility status Poor Pt appears frail, cachetic; meets criteria for severe protein calorie malnutrition. Per History and Physical 02/19/19: pt with history of G-tube feeding and moderate to severe caloric-protein malnutrition, dysphagia. Please clarify a diagnosis being treated. To facilitate accurate and complete coding, please glenna ( x ) for the suspected diagnosis that applies: Some considerations include but are not limited to: ( ) Severe protein-energy (calorie) malnutrition ( ) Mild protein-energy (calorie) malnutrition ( ) Moderate protein-energy (calorie) malnutrition ( x ) Moderate - Severe protein-energy (calorie) malnutrition ( ) Other Please provide your response by clicking edit document,makingyour choice (x ), clicking ok/save, and finally clicking sign. You may alsodocument your responseonyour progress notes. Thank you for your time. Sincerely, Glenna Cuello CCDS CDI Specialist [address] [id number] ext. [phone] [email or web address] GLENNA CUELLO Feb 23, 2019 11:54 DYLON WALLS MD Feb 23, 2019 16:20
--- NOTE | 2019-02-23 13:00 | CONS ---
Consultation Date/Type/Reason Admit Date/Time Feb 19, 2019 at 01:01 Initial Consult Date Date/Time of Note DATE: 02/23/19 TIME: 13:00 Exam/Review of Systems Exam Vitals Vital Signs Date Temp Pulse Resp B/P (MAP) Pulse Ox O2 O2 Flow FiO2 Time Delivery Rate 02/23/19 94 12:45 02/23/19 97.5 22 159/70 96 Room Air 07:58 (99) Intake and Output 02/22/19 02/22/19 02/23/19 1515:00 23:00 07:00 IntakeIntake Total 790 ml BalanceBalance 790 ml Results Result Diagram: 02/23/19 0458 02/23/19 0458 Results 24hrs Laboratory Tests Test 02/22/19 22:00 02/23/19 04:58 Stool Occult Blood NEGATIVE White Blood Count 11.8 H Red Blood Count 3.09 L Hemoglobin 8.7 L Hematocrit 27.3 L Mean Corpuscular Volume 88.3 Mean Corpuscular Hemoglobin 28.2 L Mean Corpuscular Hemoglobin Concent 31.9 L Red Cell Distribution Width 16.1 H Platelet Count 278 Mean Platelet Volume 10.7 H Immature Granulocytes % 3.000 H Neutrophils % 71.8 Lymphocytes % 9.3 L Monocytes % 12.0 H Eosinophils % 3.1 Basophils % 0.8 Nucleated Red Blood Cells % 1.9 H Immature Granulocytes # 0.360 H Neutrophils # 8.5 H Lymphocytes # 1.1 Monocytes # 1.4 H Eosinophils # 0.4 Basophils # 0.1 Nucleated Red Blood Cells # 0.2 H Sodium Level 139 Potassium Level 4.6 Chloride Level 104 Carbon Dioxide Level 29 Anion Gap 6 Blood Urea Nitrogen 44 #H Creatinine 1.58 H Est Glomerular Filtrat Rate mL/min Glucose Level 140 Calcium Level 8.7 Phosphorus Level 1.8 #L Magnesium Level 3.0 H Medications Medication Current Medications IV Flush (NS 3 ml) 3 ml PER PROTOCOL IV ; Start 02/19/19 at 03:30 Lorazepam (Ativan) 0.5 mg Q8H PRN GTB .ANXIETY Last administered on 02/21/19at 09:06; Admin Dose 0.5 MG; Start 02/19/19 at 03:30 Ondansetron HCl (Zofran Inj) 4 mg Q6H PRN IV NAUSEA/VOMITING; Start 02/19/19 at 03:30 Acetaminophen (Tylenol Tab) 325 mg Q4H PRN GTB FOR FEVER 100AND ABOVE Last ad ministered on 02/20/19 20:13; Admin Dose 325 MG; Start 02/19/19 at 03:30 Acetaminophen (Tylenol Tab) 650 mg Q6H PRN GTB PAIN LEVEL 1-10/10 Last administered on 02/19/19 21:49; Admin Dose 650 MG; Start 02/19/19 at 03:30 Amlodipine Besylate (Norvasc) 5 mg BID GTB Last administered on 02/22/19 22: 32; Admin Dose 5 MG; Start 02/19/19 at 09:00 Ascorbic Acid (Vitamin C) 500 mg DAILY GTB Last administered on 02/23/19 08:43; Admin Dose 500 MG; Start 02/19/19 at 09:00 Aspirin (Aspirin) 81 mg DAILY GTB Last administered on 02/23/19 08:43; Admin Dose 81 MG; Start 02/19/19 at 09:00 Atorvastatin Calcium (Lipitor) 40 mg QHS GTB Last administered on 02/22/19 22:31; Admin Dose 40 MG; Start 02/19/19 at 21:00 Ferrous Sulfate (Ferrous Sulfate (Ec)) 325 mg BID PO Last administered on 02/23/19 08:43; Admin Dose 325 MG; Start 02/19/19 at 09:00 Folic Acid (Folic Acid) 1 mg DAILY GTB Last administered on 02/23/19 08:43; Admin Dose 1 MG; Start 02/19/19 at 09:00 Guaifenesin/ Dextromethorphan (Robitussin Dm Liquid Cup) 5 ml Q4H GTB Last administered on 02/23/19 12:58; Admin Dose 5 ML; Start 02/19/19 at 03:30 Hydralazine HCl (Apresoline) 25 mg Q8 GTB Last administered on 02/23/19 06:41; Admin Dose 25 MG; Start 02/19/19 at 06:00 Lansoprazole (Prevacid) 30 mg DAILY@0600 GTB Last administered on 02/23/19 06:40; Admin Dose 30 MG; Start 02/19/19 at 06:00 Linagliptin (Tradjenta) 5 mg DAILY GTB Last administered on 02/23/19 08:44; Admin Dose 5 MG; Start 02/19/19 at 09:00 Lorazepam (Ativan) 0.5 mg HS PRN GTB ANXIETY Last administered on 02/22/19 22:39; Admin Dose 0.5 MG; Start 02/19/19 at 03:30 Magnesium Hydroxide (Milk Of Mag) 30 ml QHS GTB Last administered on 02/21/19 22:16; Admin Dose 30 ML; Start 02/19/19 at 21:00 Metoprolol Tartrate (Lopressor) 50 mg BID GTB Last administered on 02/22/19 21:00; Admin Dose 50 MG; Start 02/19/19 at 09:00 Olanzapine (Zyprexa) 5 mg DAILY GTB Last administered on 02/23/19 08:43; Admin Dose 5 MG; Start 02/19/19 at 09:00 Ondansetron HCl (Zofran Tab) 4 mg Q4H PRN GTB NAUSEA AND/OR VOMITING; Start 02/19/19 at 03:30 Valproate Sodium (Depakene Liquid Cup) 250 mg Q8 GTB Last administered on 02/23/19 06:41; Admin Dose 250 MG; Start 02/19/19 at 06:00 Docusate Sodium (Colace Liquid Cup) 100 mg DAILY GTB Last administered on 02/23/19 08:42; Admin Dose 100 MG; Start 02/19/19 at 09:00 Docusate Sodium (Colace Liquid Cup) 100 mg Q12H PRN GTB CONSTIPATION; Start 02/19/19 at 04:00 Acetaminophen (Tylenol Tab) 650 mg Q6H PRN GTB .PAIN 1-3 OR TEMP Last administered on 02/19/19 11:57; Admin Dose 650 MG; Start 02/19/19 at 03:35 Meropenem/Sodium Chloride 50 ml @ 100 mls/hr Q12H IVPB Last administered on 02/23/19 06:40; Admin Dose 100 MLS/HR; Start 02/20/19 at 06:00 Caspofungin 50 mg/ Sodium Chloride 250 ml @ 250 mls/hr Q24H IVPB Last administered on 02/22/19 17:41; Admin Dose 250 MLS/HR; Start 02/21/19 at 17:00 Heparin Sodium (Porcine) (Heparin (1000 Units/ml)) 4,000 unit AFTER DIALYSIS CATHETER Last administered on 02/21/19at 20:48; Admin Dose 4,000 UNIT; Start 02/20/19 at 16:00 Vancomycin HCl (Vanco Iv Per Pharmacy) VANCOMYCIN PER PHARMACY PER PROTOCOL XX ; Start 02/22/19 at 14:00 Mupirocin (Bactroban) 1 applic BID TOP Last administered on 02/23/19at 08:42; Admin Dose 1 APPLIC; Start 02/22/19 at 14:00 Miscellaneous Information (*Rx Drug Level Order Reminder*) RANDOM VANCOMYCIN LEVEL IN AM 0500 ONCE XX ; Start 02/24/19 at 05:00; Stop 02/24/19 at 05:01 JOSE RAUL ANDREWS MD Feb 23, 2019 13:00
--- NOTE | 2019-02-23 13:29 | CONS ---
Assessment/Plan Assessment/Plan Hospital Course (Demo Recall) No acute events overnight patient looks comfortable, afebrile Indwelling: Left subclavian permacath, PEG Microbiology: Urine culture on admission grew Dominique glabrata blood culture growing Enterococcus Antimicrobials: Vancomycin, Cancidas Chest x-ray on admission revealed no definite evidence of pneumonia or CHF Physical examination: This is a chronically ill-appearing wasted elderly woman who is in no distress. Head atraumatic normocephalic. Neck is supple. Chest rise symmetrical breath sounds clear, diminished bases. Heart: S1-S2. Abdomen soft bowel sounds present. Extremities without cyanosis edema. Assessment: 1. Sepsis, present on admission 2. Recurrent UTI 3. Gram-positive cocci bacteremia, rule out infected line 4. End-stage renal disease, hemodialysis dependent 5. Anemia 6. 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 Plan: Clinically unchanged, change Vanco to Zyvox, await for final cx, consider 2D ECHO, repeat blood cultures from [place] with next hemodialysis Consultation Date/Type/Reason Admit Date/Time Feb 19, 2019 at 01:01 Initial Consult Date Type of Consult id Date/Time of Note DATE: 02/23/19 TIME: 13:25 Exam/Review of Systems Exam Vitals Vital Signs Date Temp Pulse Resp B/P (MAP) Pulse Ox O2 O2 Flow FiO2 Time Delivery Rate 02/23/19 94 12:45 02/23/19 97.5 16 131/54 96 Room Air 12:00 (79) Intake and Output 02/22/19 02/22/19 02/23/19 1515:00 23:00 07:00 IntakeIntake Total 790 ml BalanceBalance 790 ml Results Result Diagram: 02/23/19 0458 02/23/19 0458 Results 24hrs Laboratory Tests Test 02/22/19 22:00 02/23/19 04:58 Stool Occult Blood NEGATIVE White Blood Count 11.8 H Red Blood Count 3.09 L Hemoglobin 8.7 L Hematocrit 27.3 L Mean Corpuscular Volume 88.3 Mean Corpuscular Hemoglobin 28.2 L Mean Corpuscular Hemoglobin Concent 31.9 L Red Cell Distribution Width 16.1 H Platelet Count 278 Mean Platelet Volume 10.7 H Immature Granulocytes % 3.000 H Neutrophils % 71.8 Lymphocytes % 9.3 L Monocytes % 12.0 H Eosinophils % 3.1 Basophils % 0.8 Nucleated Red Blood Cells % 1.9 H Immature Granulocytes # 0.360 H Neutrophils # 8.5 H Lymphocytes # 1.1 Monocytes # 1.4 H Eosinophils # 0.4 Basophils # 0.1 Nucleated Red Blood Cells # 0.2 H Sodium Level 139 Potassium Level 4.6 Chloride Level 104 Carbon Dioxide Level 29 Anion Gap 6 Blood Urea Nitrogen 44 #H Creatinine 1.58 H Est Glomerular Filtrat Rate mL/min Glucose Level 140 Calcium Level 8.7 Phosphorus Level 1.8 #L Magnesium Level 3.0 H Medications Medication Current Medications IV Flush (NS 3 ml) 3 ml PER PROTOCOL IV ; Start 02/19/19 at 03:30 Lorazepam (Ativan) 0.5 mg Q8H PRN GTB .ANXIETY Last administered on 02/21/19 09:06; Admin Dose 0.5 MG; Start 02/19/19 at 03:30 Ondansetron HCl (Zofran Inj) 4 mg Q6H PRN IV NAUSEA/VOMITING; Start 02/19/19 at 03:30 Acetaminophen (Tylenol Tab) 325 mg Q4H PRN GTB FOR FEVER 100AND ABOVE Last administered on 02/20/19 20:13; Admin Dose 325 MG; Start 02/19/19 at 03:30 Acetaminophen (Tylenol Tab) 650 mg Q6H PRN GTB PAIN LEVEL 1-10/10 Last administered on 02/19/19at 21:49; Admin Dose 650 MG; Start 02/19/19 at 03:30 Amlodipine Besylate (Norvasc) 5 mg BID GTB Last administered on 02/22/19 22:32; Admin Dose 5 MG; Start 02/19/19 at 09:00 Ascorbic Acid (Vitamin C) 500 mg DAILY GTB Last administered on 02/23/19 08:43; Admin Dose 500 MG; Start 02/19/19 at 09:00 Aspirin (Aspirin) 81 mg DAILY GTB Last administered on 02/23/19 08:43; Admin Dose 81 MG; Start 02/19/19 at 09:00 Atorvastatin Calcium (Lipitor) 40 mg QHS GTB Last administered on 02/22/19 22:31; Admin Dose 40 MG; Start 02/19/19 at 21:00 Ferrous Sulfate (Ferrous Sulfate (Ec)) 325 mg BID PO Last administered on 02/23/19 08:43; Admin Dose 325 MG; Start 02/19/19 at 09:00 Folic Acid (Folic Acid) 1 mg DAILY GTB Last administered on 02/23/19 08:43; Admin Dose 1 MG; Start 02/19/19 at 09:00 Guaifenesin/ Dextromethorphan (Robitussin Dm Liquid Cup) 5 ml Q4H GTB Last administered on 02/23/19 12:58; Admin Dose 5 ML; Start 02/19/19 at 03:30 Hydralazine HCl (Apresoline) 25 mg Q8 GTB Last administered on 02/23/19 06:41; Admin Dose 25 MG; Start 02/19/19 at 06:00 Lansoprazole (Prevacid) 30 mg DAILY@0600 GTB Last administered on 02/23/19 06:40; Admin Dose 30 MG; Start 02/19/19 at 06:00 Linagliptin (Tradjenta) 5 mg DAILY GTB Last administered on 02/23/19 08:44; Admin Dose 5 MG; Start 02/19/19 at 09:00 Lorazepam (Ativan) 0.5 mg HS PRN GTB ANXIETY Last administered on 02/22/19 22:39; Admin Dose 0.5 MG; Start 02/19/19 at 03:30 Magnesium Hydroxide (Milk Of Mag) 30 ml QHS GTB Last administered on 02/21/19 22:16; Admin Dose 30 ML; Start 02/19/19 at 21:00 Metoprolol Tartrate (Lopressor) 50 mg BID GTB Last administered on 02/22/19 21:00; Admin Dose 50 MG; Start 02/19/19 at 09:00 Olanzapine (Zyprexa) 5 mg DAILY GTB Last administered on 02/23/19 08:43; Admin Dose 5 MG; Start 02/19/19 at 09:00 Ondansetron HCl (Zofran Tab) 4 mg Q4H PRN GTB NAUSEA AND/OR VOMITING; Start 02/19/19 at 03:30 Valproate Sodium (Depakene Liquid Cup) 250 mg Q8 GTB Last administered on 02/23/19 06:41; Admin Dose 250 MG; Start 02/19/19 at 06:00 Docusate Sodium (Colace Liquid Cup) 100 mg DAILY GTB Last administered on 02/23/19 08:42; Admin Dose 100 MG; Start 02/19/19 at 09:00 Docusate Sodium (Colace Liquid Cup) 100 mg Q12H PRN GTB CONSTIPATION; Start 02/19/19 at 04:00 Acetaminophen (Tylenol Tab) 650 mg Q6H PRN GTB .PAIN 1-3 OR TEMP Last administered on 02/19/19at 11:57; Admin Dose 650 MG; Start 02/19/19 at 03:35 Meropenem/Sodium Chloride 50 ml @ 100 mls/hr Q12H IVPB Last administered on 02/23/19at 06:40; Admin Dose 100 MLS/HR; Start 02/20/19 at 06:00 Caspofungin 50 mg/ Sodium Chloride 250 ml @ 250 mls/hr Q24H IVPB Last administered on 02/22/19at 17:41; Admin Dose 250 MLS/HR; Start 02/21/19 at 17:00 Heparin Sodium (Porcine) (Heparin (1000 Units/ml)) 4,000 unit AFTER DIALYSIS CATHETER Last administered on 02/21/19at 20:48; Admin Dose 4,000 UNIT; Start at 16:00 Vancomycin HCl (Vanco Iv Per Pharmacy) VANCOMYCIN PER PHARMACY PER PROTOCOL XX ; Start 02/22/19 at 14:00 Mupirocin (Bactroban) 1 applic BID TOP Last administered on 02/23/19 08:42; Ad min Dose 1 APPLIC; Start 02/22/19 at 14:00 Miscellaneous Information (*Rx Drug Level Order Reminder*) RANDOM VANCOMYCIN LEVEL IN AM 0500 ONCE XX ; Start 02/24/19 at 05:00; Stop 02/24/19 at 05:01 PHYLICIA HOLCOMB NP Feb 23, 2019 13:29
--- NOTE | 2019-02-23 13:44 | CONS ---
Assessment/Plan Assessment/Plan Assessment/Plan (Daily) Hospital Course (Demo Recall) 1. Fevers, likely secondary to kaylah urinary tract infection, now bld cx positive gram + Entercoccus 2. End-stage renal disease on hemodialysis. 3. Urinary tract infection. 4. Hypertension. 5. Dementia. 6. Diabetes mellitus type II. 7. Diastolic heart failure. 8. Moderate protein energy malnutrition with cachexia. 9. Osteoarthritis. 10. GT status Assessment/Plan (Daily) - per ID switch to ZYVOX - Catheter removal? called Dr Eason covering for Dr Sagastume -c/w meropenem -Urine cultures have been sent, yeast . - HD MWF , HD today -? Line holiday - renally dose all meds Consultation Date/Type/Reason Admit Date/Time Feb 19, 2019 at 01:01 Initial Consult Date Date/Time of Note DATE: 02/23/19 TIME: 13:44 24 HR Interval Summary Free Text/Dictation BLD CX+ENTEROCOCCus Exam/Review of Systems Exam Vitals Vital Signs Date Temp Pulse Resp B/P (MAP) Pulse Ox O2 O2 Flow FiO2 Time Delivery Rate 02/23/19 94 12:45 02/23/19 97.5 16 131/54 96 Room Air 12:00 (79) Intake and Output 02/22/19 02/22/19 02/23/19 1515:00 23:00 07:00 IntakeIntake Total 790 ml BalanceBalance 790 ml Exam GENERAL: Patient is frail, resting. HEENT: Normocephalic, atraumatic. HEART: Regular rate and rhythm. LUNGS: Clear to auscultation bilaterally. The patient has a G-tube in place. ABDOMEN. Binder up in the chest. EXTREMITIES: Has a left upper extremity Perm-A-Cath, muscle atrophy. Results Result Diagram: 02/23/19 0458 02/23/19 0458 Results 24hrs Laboratory Tests Test 02/22/19 22:00 02/23/19 04:58 Stool Occult Blood NEGATIVE White Blood Count 11.8 H Red Blood Count 3.09 L Hemoglobin 8.7 L Hematocrit 27.3 L Mean Corpuscular Volume 88.3 Mean Corpuscular Hemoglobin 28.2 L Mean Corpuscular Hemoglobin Concent 31.9 L Red Cell Distribution Width 16.1 H Platelet Count 278 Mean Platelet Volume 10.7 H Immature Granulocytes % 3.000 H Neutrophils % 71.8 Lymphocytes % 9.3 L Monocytes % 12.0 H Eosinophils % 3.1 Basophils % 0.8 Nucleated Red Blood Cells % 1.9 H Immature Granulocytes # 0.360 H Neutrophils # 8.5 H Lymphocytes # 1.1 Monocytes # 1.4 H Eosinophils # 0.4 Basophils # 0.1 Nucleated Red Blood Cells # 0.2 H Sodium Level 139 Potassium Level 4.6 Chloride Level 104 Carbon Dioxide Level 29 Anion Gap 6 Blood Urea Nitrogen 44 #H Creatinine 1.58 H Est Glomerular Filtrat Rate mL/min Glucose Level 140 Calcium Level 8.7 Phosphorus Level 1.8 #L Magnesium Level 3.0 H Medications Medication Current Medications IV Flush (NS 3 ml) 3 ml PER PROTOCOL IV ; Start 02/19/19 at 03:30 Lorazepam (Ativan) 0.5 mg Q8H PRN GTB .ANXIETY Last administered on 02/21/19 09:06; Admin Dose 0.5 MG; Start 02/19/19 at 03:30 Ondansetron HCl (Zofran Inj) 4 mg Q6H PRN IV NAUSEA/VOMITING; Start 02/19/19 at 03:30 Acetaminophen (Tylenol Tab) 325 mg Q4H PRN GTB FOR FEVER 100AND ABOVE Last administered on 02/20/19 20:13; Admin Dose 325 MG; Start 02/19/19 at 03:30 Acetaminophen (Tylenol Tab) 650 mg Q6H PRN GTB PAIN LEVEL 1-10/10 Last ad ministered on 02/19/19 21:49; Admin Dose 650 MG; Start 02/19/19 at 03:30 Amlodipine Besylate (Norvasc) 5 mg BID GTB Last administered on 02/22/19 22:32; Admin Dose 5 MG; Start 02/19/19 at 09:00 Ascorbic Acid (Vitamin C) 500 mg DAILY GTB Last administered on 02/23/19 08:43; Admin Dose 500 MG; Start 02/19/19 at 09:00 Aspirin (Aspirin) 81 mg DAILY GTB Last administered on 02/23/19 08:43; Admin Dose 81 MG; Start 02/19/19 at 09:00 Atorvastatin Calcium (Lipitor) 40 mg QHS GTB Last administered on 02/22/19 22:31; Admin Dose 40 MG; Start 02/19/19 at 21:00 Ferrous Sulfate (Ferrous Sulfate (Ec)) 325 mg BID PO Last administered on 02/23/19 08:43; Admin Dose 325 MG; Start 02/19/19 at 09:00 Folic Acid (Folic Acid) 1 mg DAILY GTB Last administered on 02/23/19 08:43; Admin Dose 1 MG; Start 02/19/19 at 09:00 Guaifenesin/ Dextromethorphan (Robitussin Dm Liquid Cup) 5 ml Q4H GTB Last administered on 02/23/19 12:58; Admin Dose 5 ML; Start 02/19/19 at 03:30 Hydralazine HCl (Apresoline) 25 mg Q8 GTB Last administered on 02/23/19 06:41; Admin Dose 25 MG; Start 02/19/19 at 06:00 Lansoprazole (Prevacid) 30 mg DAILY@0600 GTB Last administered on 02/23/19 06:40; Admin Dose 30 MG; Start 02/19/19 at 06:00 Linagliptin (Tradjenta) 5 mg DAILY GTB Last administered on 02/23/19 08:44; Admin Dose 5 MG; Start 02/19/19 at 09:00 Lorazepam (Ativan) 0.5 mg HS PRN GTB ANXIETY Last administered on 02/22/19 22:39; Admin Dose 0.5 MG; Start 02/19/19 at 03:30 Magnesium Hydroxide (Milk Of Mag) 30 ml QHS GTB Last administered on 02/21/19 22:16; Admin Dose 30 ML; Start 02/19/19 at 21:00 Metoprolol Tartrate (Lopressor) 50 mg BID GTB Last administered on 02/22/19 21:00; Admin Dose 50 MG; Start 02/19/19 at 09:00 Olanzapine (Zyprexa) 5 mg DAILY GTB Last administered on 02/23/19 08:43; Admin Dose 5 MG; Start 02/19/19 at 09:00 Ondansetron HCl (Zofran Tab) 4 mg Q4H PRN GTB NAUSEA AND/OR VOMITING; Start 02/19/19 at 03:30 Valproate Sodium (Depakene Liquid Cup) 250 mg Q8 GTB Last administered on 02/23/19 06:41; Admin Dose 250 MG; Start 02/19/19 at 06:00 Docusate Sodium (Colace Liquid Cup) 100 mg DAILY GTB Last administered on 02/23/19 08:42; Admin Dose 100 MG; Start 02/19/19 at 09:00 Docusate Sodium (Colace Liquid Cup) 100 mg Q12H PRN GTB CONSTIPATION; Start 02/19/19 at 04:00 Acetaminophen (Tylenol Tab) 650 mg Q6H PRN GTB .PAIN 1-3 OR TEMP Last administered on 02/19/19 11:57; Admin Dose 650 MG; Start 02/19/19 at 03:35 Meropenem/Sodium Chloride 50 ml @ 100 mls/hr Q12H IVPB Last administered on 02/23/19 06:40; Admin Dose 100 MLS/HR; Start 02/20/19 at 06:00 Caspofungin 50 mg/ Sodium Chloride 250 ml @ 250 mls/hr Q24H IVPB Last administered on 02/22/19 17:41; Admin Dose 250 MLS/HR; Start 02/21/19 at 17:00 Heparin Sodium (Porcine) (Heparin (1000 Units/ml)) 4,000 unit AFTER DIALYSIS CATHETER Last administered on 02/21/19 20:48; Admin Dose 4,000 UNIT; Start 02/20/19 at 16:00 Mupirocin (Bactroban) 1 applic BID TOP Last administered on 02/23/19 08:42; Admin Dose 1 APPLIC; Start 02/22/19 at 14:00 Miscellaneous Information (*Rx Drug Level Order Reminder*) RANDOM VANCOMYCIN LEVEL IN AM 0500 ONCE XX ; Start 02/24/19 at 05:00; Stop 02/24/19 at 05:01 Linezolid (Zyvox) 600 mg BID PO ; Start 02/23/19 at 13:30; Status JOSE RAUL ALLAN MD Feb 23, 2019 13:44
[2019-02-23] MEDS: ZYVOX 600 MG TAB PO SCH ×2 (15:13→20:57)
--- NOTE | 2019-02-23 17:12 | CONS ---
Assessment/Plan Assessment/Plan Assessment/Plan (Daily) 83-year-old female w/ multiple medical conditions, very frail, w/ advanced dementia and ESRD on HD via [facility] w/ h/o recurrent line sepsis/bacteremia now w/ recurrent bacteremia Plan: -Appreciate medical management -Discussions w/ Dr. Natarajan and pt's daughterAlejandro - given desire to preserve [facility] access and not have to resort to femoral access, plan for [facility] PC exchange w/ venogram and venoplasty of possible fibrin sheath that may be harboring bacteria causing recurrent line sepsis -- indications, risks and benefits d/w pt's daughter, who agreed to proceed -Cont IV abx as per ID -D/w Dr. Natarajan and RN Consultation Date/Type/Reason Admit Date/Time Feb 19, 2019 at 01:01 Date of Consultation: Feb 23, 2019 Reason for Consultation Recurrent bacteremia, possible PC infection Requesting Provider: JILLIAN HOLLAND MD Date/Time of Note DATE: 02/23/19 TIME: 17:12 Hx of Present Illness 83-year-old female w/ multiple medical conditions, very frail, w/ advanced dementia and ESRD on HD via [facility] w/ h/o recurrent line sepsis/bacteremia now w/ recurrent bacteremia. There is concern for possible infection from [facility] since blood culture obtained from line was positive. We are consulted to help w/ PC management. History is limited to record review and discussion w/ Dr. Natarajan and RN due to pt's severe dementia. Limited due to advanced dementia Past Medical History End-stage renal disease, diabetes mellitus, anemia, osteoarthritis, COPD, chronic diastolic dysfunction heart failure, dysphagia, moderate caloric-protein malnutrition, multiple orthopedic surgeries, behavioral disturbances due to dementia Home Meds Reported Medications Linaclotide (LINZESS) 145 Mcg Capsule, 145 MCG PO DAILY, #30 CAP 02/19/19 Metoprolol Tartrate* (Lopressor*) 50 Mg Tab, 50 MG PO BID, #60 TAB give 50mg by mouth BID, Every E,ANDREW,SAT., HOLD FOR SBP<110 OR ND<60 02/19/19 Metoprolol Tartrate* (Lopressor*) 50 Mg Tab, 50 MG PO DAILY, #60 TAB Give every MON,WED,FRI,SUN,HOLD for SBP<110 or ND<60 02/19/19 Quetiapine Fumarate* (Quetiapine Fumarate*) 25 Mg Tablet, 25 MG PO BID, TAB 02/19/19 Ferrous Sulfate* (Ferrous Sulfate*) 325 Mg Tabec, 325 MG PO BID, TAB 02/19/19 Sennosides* (Senna Lax*) 8.6 Mg Tablet, 1 TAB PO BID, TAB 02/19/19 Guaifenesin-Dextromethorphan* (Robitussin* DM) 100MG/10MG/5ML Syrup, 5 ML GTB Q4H, ML 01/26/19 Metoclopramide* (Reglan*) 5 Mg Tablet, 5 MG GTB Q6H PRN for NAUSEA AND OR VOMITING, TAB 01/26/19 Na Phos,M-B/Na Phos,Di-Ba (Fleet Enema Extra) Unknown Strength Enema, 1 APPLIC RC Q2D, ENEMA 01/26/19 Bisacodyl* (Bisacodyl*) 10 Mg Supp, 10 MG ND DAILY, SUPP 01/26/19 Magnesium Hydroxide* (Milk Of Magnesia*) 400 Mg/5 Ml Oral.susp, 30 ML GTB QHS, ML 01/26/19 Insulin Glargine* (Lantus*) 100 Unit/Ml Soln, 4 UNIT SC QHS, #1 VIAL 01/26/19 Insulin Aspart* (Novolog Insulin Pen*) 100 Unit/Ml Soln, 0 SC .SLIDING SCALE AC, EA IF BS 0-150=0 UNIT,151-200=1 UNIT,201-250=2 UNITS,251-300=3 UNITS,301-350=4 UNITS,351-400=5 UNITS. IF >400=6 UNITS AND CALL MD IF<60=ORANGE JUICE OR GLUCOSE GEL AND CALL MD 01/26/19 Olanzapine* (Zyprexa*) 5 Mg Tablet, 5 MG GTB DAILY, #30 TAB 01/26/19 Lorazepam* (Lorazepam*) 0.5 Mg Tablet, 0.5 MG GTB HS PRN for ANXIETY, TAB 01/26/19 Amino Acids/Protein Hydrolys (PRO-STAT LIQUID) 30 Ml Liquid.pkt, 30 ML GTB DAILY SUGAR FREE 01/26/19 Multivit &Minerals/Ferrous Fum (MULTIVITAMIN LIQUID) 9 Mg/15 Ml Liquid, 5 ML GTB DAILY 01/26/19 Ascorbic Acid (Vitamin C) 500 Mg Tab, 500 MG GTB DAILY, TAB 01/26/19 Cran/Vitc/Mannose/Inulin/Brom (Uti-Stat Liquid) 3,875 Mg/30 Ml Liquid, 30 MG GTB BID 01/26/19 Cranberry Extract (Cranberry) 425 Mg Capsule, 425 MG GTB DAILY, CAP 01/26/19 Sevelamer Carbonate* (Renvela*) 800 Mg Tablet, 1.6 GM GTB WITH MEALS, TAB 01/26/19 Ipratropium-Albuterol (Ipratropium-Albuterol) 0.5-3 Mg/3 Ml Ampul.neb, 3 ML INHALATION Q6, #30 VIAL 01/26/19 Aspirin* (Aspirin* Chew) 81 Mg Tab.chew, 81 MG GTB DAILY, TAB.CHEW 01/26/19 [Nephro-Roque] No Conflict Check, 1 TAB GTB DAILY 01/26/19 Pantoprazole* (Pantoprazole*) 40 Mg Tablet.dr, 40 MG GTB AC BREAKFAST DINNER, TAB 01/26/19 Atorvastatin* (Atorvastatin*) 40 Mg Tablet, 40 MG GTB QHS, #30 TAB 01/26/19 Acetaminophen* (Acetaminophen*) 500 MG Extra Strength Tablet, 1000 MG GTB Q4H PRN for PAIN LEVEL 4-6/10, TAB 01/26/19 Acetaminophen* (Acetaminophen*) 500 MG Extra Strength Tablet, 1000 MG GTB DAILY PRN for PAIN AND OR ELEVATED TEMP, TAB 01/26/19 Acetaminophen* (Acetaminophen*) 325 Mg Tablet, 325 MG GTB Q4H PRN for FOR FEVER 100AND ABOVE, #30 TAB 01/26/19 Lansoprazole* (Lansoprazole*) 30 Mg Capsule.dr, 30 MG PO QAM, CAP 11/16/18 Hydralazine Hcl* (Hydralazine Hcl*) 25 Mg Tab, 25 MG PO Q8, #90 TAB 11/16/18 Valproate Sodium (Valproic Acid) 250 Mg/5 Ml Solution, 250 MG PO Q8, ML 11/16/18 Ondansetron Hcl* (Zofran*) 4 Mg Tab, 4 MG GTB Q4H PRN for NAUSEA AND OR VOMITING, TAB 10/16/18 Linagliptin (TRADJENTA) 5 Mg Tablet, 5 MG GTB DAILY, TAB 10/16/18 Polyethylene Glycol* (Miralax*) 17 Gm Powd.pack, 17 GM GTB Q24H, #30 PACKET 10/16/18 Folic Acid* (Folic Acid*) 1 Mg Tablet, 1 MG GTB DAILY, TAB 10/16/18 Docusate Sodium* (Colace*) 100 Mg Capsule, 100 MG GTB DAILY, #30 CAP 10/16/18 Amlodipine Besylate* (Norvasc*) 5 Mg Tablet, 5 MG GTB BID, TAB TAKE Q TUE,ANDREW,SAT FOR HTN, HOLD FOR SBP<110 OR ND<60 10/16/18 Acetaminophen* (Acetaminophen*) 650 Mg Tablet, 650 MG GTB Q6H PRN for PAIN LEVEL 1-10, #30 TAB 10/16/18 Discontinued Reported Medications Ferrous Sulfate* (Ferrous Sulfate*) 220 Mg/5 Ml Solution, 7.5 ML GTB DAILY, ML 01/26/19 Metoprolol Tartrate* (Lopressor*) 100 Mg Tablet, 100 MG GTB BID, #60 TAB 01/26/19 Medications Current Medications IV Flush (NS 3 ml) 3 ml PER PROTOCOL IV ; Start 02/19/19 at 03:30 Lorazepam (Ativan) 0.5 mg Q8H PRN GTB .ANXIETY Last administered on 02/21/19at 09:06; Admin Dose 0.5 MG; Start 02/19/19 at 03:30 Ondansetron HCl (Zofran Inj) 4 mg Q6H PRN IV NAUSEA/VOMITING; Start 02/19/19 at 03:30 Acetaminophen (Tylenol Tab) 325 mg Q4H PRN GTB FOR FEVER 100AND ABOVE Last administered on 02/20/19at 20:13; Admin Dose 325 MG; Start 02/19/19 at 03:30 Acetaminophen (Tylenol Tab) 650 mg Q6H PRN GTB PAIN LEVEL 1-1010 Last administered on 02/19/19at 21:49; Admin Dose 650 MG; Start 02/19/19 at 03:30 Amlodipine Besylate (Norvasc) 5 mg BID GTB Last administered on 02/22/19at 22:32; Admin Dose 5 MG; Start 02/19/19 at 09:00 Ascorbic Acid (Vitamin C) 500 mg DAILY GTB Last administered on 02/23/19 08:43; Admin Dose 500 MG; Start 02/19/19 at 09:00 Aspirin (Aspirin) 81 mg DAILY GTB Last administered on 02/23/19 08:43; Admin Dose 81 MG; Start 02/19/19 at 09:00 Atorvastatin Calcium (Lipitor) 40 mg QHS GTB Last administered on 02/22/19 22:31; Admin Dose 40 MG; Start 02/19/19 at 21:00 Ferrous Sulfate (Ferrous Sulfate (Ec)) 325 mg BID PO Last administered on 02/23/19 08:43; Admin Dose 325 MG; Start 02/19/19 at 09:00 Folic Acid (Folic Acid) 1 mg DAILY GTB Last administered on 02/23/19 08:43; Admin Dose 1 MG; Start 02/19/19 at 09:00 Guaifenesin/ Dextromethorphan (Robitussin Dm Liquid Cup) 5 ml Q4H GTB Last administered on 02/23/19 16:06; Admin Dose 5 ML; Start 02/19/19 at 03:30 Hydralazine HCl (Apresoline) 25 mg Q8 GTB Last administered on 02/23/19 15:13; Admin Dose 25 MG; Start 02/19/19 at 06:00 Lansoprazole (Prevacid) 30 mg DAILY@0600 GTB Last administered on 02/23/19 06:40; Admin Dose 30 MG; Start 02/19/19 at 06:00 Linagliptin (Tradjenta) 5 mg DAILY GTB Last administered on 02/23/19 08:44; Admin Dose 5 MG; Start 02/19/19 at 09:00 Lorazepam (Ativan) 0.5 mg HS PRN GTB ANXIETY Last administered on 02/22/19 22:39; Admin Dose 0.5 MG; Start 02/19/19 at 03:30 Magnesium Hydroxide (Milk Of Mag) 30 ml QHS GTB Last administered on 02/21/19 22:16; Admin Dose 30 ML; Start 02/19/19 at 21:00 Metoprolol Tartrate (Lopressor) 50 mg BID GTB Last administered on 02/22/19 21:00; Admin Dose 50 MG; Start 02/19/19 at 09:00 Olanzapine (Zyprexa) 5 mg DAILY GTB Last administered on 02/23/19 08:43; Admin Dose 5 MG; Start 02/19/19 at 09:00 Ondansetron HCl (Zofran Tab) 4 mg Q4H PRN GTB NAUSEA AND/OR VOMITING; Start 02/19/19 at 03:30 Valproate Sodium (Depakene Liquid Cup) 250 mg Q8 GTB Last administered on 02/23/19 15:13; Admin Dose 250 MG; Start 02/19/19 at 06:00 Docusate Sodium (Colace Liquid Cup) 100 mg DAILY GTB Last administered on 02/23/19 08:42; Admin Dose 100 MG; Start 02/19/19 at 09:00 Docusate Sodium (Colace Liquid Cup) 100 mg Q12H PRN GTB CONSTIPATION; Start 02/19/19 at 04:00 Acetaminophen (Tylenol Tab) 650 mg Q6H PRN GTB .PAIN 1-3 OR TEMP Last administered on 02/19/19 11:57; Admin Dose 650 MG; Start 02/19/19 at 03:35 Meropenem/Sodium Chloride 50 ml @ 100 mls/hr Q12H IVPB Last administered on 02/23/19 06:40; Admin Dose 100 MLS/HR; Start 02/20/19 at 06:00 Caspofungin 50 mg/ Sodium Chloride 250 ml @ 250 mls/hr Q24H IVPB Last administered on 02/22/19 17:41; Admin Dose 250 MLS/HR; Start 02/21/19 at 17:00 Heparin Sodium (Porcine) (Heparin (1000 Units/ml)) 4,000 unit AFTER DIALYSIS CATHETER Last administered on 02/21/19at 20:48; Admin Dose 4,000 UNIT; Start 02/20/19 at 16:00 Mupirocin (Bactroban) 1 applic BID TOP Last administered on 02/23/19 08:42; Admin Dose 1 APPLIC; Start 02/22/19 at 14:00 Miscellaneous Information (*Rx Drug Level Order Reminder*) RANDOM VANCOMYCIN LEVEL IN AM 0500 ONCE XX ; Start 02/24/19 at 05:00; Stop 02/24/19 at 05:01 Linezolid (Zyvox) 600 mg BID PO Last administered on 4/17/19at 15:13; Admin Dose 600 MG; Start 02/23/19 at 13:30 Allergies: Coded Allergies: No Known Allergy (Unverified , 02/18/19) Past Surgical History Hip replacement for hip fracture, left distal femur fracture repair, , G-tube placement for dysphagia, permacath placements Social History Smoking Status: Never smoker Exam/Review of Systems Exam Vitals Vital Signs Date Temp Pulse Resp B/P (MAP) Pulse Ox O2 O2 Flow FiO2 Time Delivery Rate 02/23/19 100 16:00 02/23/19 98.0 22 135/50 96 Room Air 15:58 (78) Intake and Output 02/22/19 02/22/19 02/23/19 1515:00 23:00 07:00 IntakeIntake Total 790 ml BalanceBalance 790 ml Exam Gen: Sleeping comfortably, NAD Neck: supple; [facility] c/d/i, no edema, no erythema Heart: Reg Lungs: ant clear but diminished Abd: PEG tube c/d/i, soft Extr: BUE/BLE warm, no edema Results Result Diagram: 02/23/19 0458 02/23/19 0458 Results 24hrs Laboratory Tests Test 02/22/19 22:00 02/23/19 04:58 Stool Occult Blood NEGATIVE White Blood Count 11.8 H Red Blood Count 3.09 L Hemoglobin 8.7 L Hematocrit 27.3 L Mean Corpuscular Volume 88.3 Mean Corpuscular Hemoglobin 28.2 L Mean Corpuscular Hemoglobin Concent 31.9 L Red Cell Distribution Width 16.1 H Platelet Count 278 Mean Platelet Volume 10.7 H Immature Granulocytes % 3.000 H Neutrophils % 71.8 Lymphocytes % 9.3 L Monocytes % 12.0 H Eosinophils % 3.1 Basophils % 0.8 Nucleated Red Blood Cells % 1.9 H Immature Granulocytes # 0.360 H Neutrophils # 8.5 H Lymphocytes # 1.1 Monocytes # 1.4 H Eosinophils # 0.4 Basophils # 0.1 Nucleated Red Blood Cells # 0.2 H Sodium Level 139 Potassium Level 4.6 Chloride Level 104 Carbon Dioxide Level 29 Anion Gap 6 Blood Urea Nitrogen 44 #H Creatinine 1.58 H Est Glomerular Filtrat Rate mL/min Glucose Level 140 Calcium Level 8.7 Phosphorus Level 1.8 #L Magnesium Level 3.0 H Medications Medication Current Medications IV Flush (NS 3 ml) 3 ml PER PROTOCOL IV ; Start 02/19/19 at 03:30 Lorazepam (Ativan) 0.5 mg Q8H PRN GTB .ANXIETY Last administered on 02/21/19 09:06; Admin Dose 0.5 MG; Start 02/19/19 at 03:30 Ondansetron HCl (Zofran Inj) 4 mg Q6H PRN IV NAUSEA/VOMITING; Start 02/19/19 at 03:30 Acetaminophen (Tylenol Tab) 325 mg Q4H PRN GTB FOR FEVER 100AND ABOVE Last administered on 02/20/19 20:13; Admin Dose 325 MG; Start 02/19/19 at 03:30 Acetaminophen (Tylenol Tab) 650 mg Q6H PRN GTB PAIN LEVEL 1-10/10 Last administered on 02/19/19 21:49; Admin Dose 650 MG; Start 02/19/19 at 03:30 Amlodipine Besylate (Norvasc) 5 mg BID GTB Last administered on 02/22/19 22:32; Admin Dose 5 MG; Start 02/19/19 at 09:00 Ascorbic Acid (Vitamin C) 500 mg DAILY GTB Last administered on 02/23/19 08:43; Admin Dose 500 MG; Start 02/19/19 at 09:00 Aspirin (Aspirin) 81 mg DAILY GTB Last administered on 02/23/19 08:43; Admin Dose 81 MG; Start 02/19/19 at 09:00 Atorvastatin Calcium (Lipitor) 40 mg QHS GTB Last administered on 02/22/19 22:31; Admin Dose 40 MG; Start 02/19/19 at 21:00 Ferrous Sulfate (Ferrous Sulfate (Ec)) 325 mg BID PO Last administered on 02/23/19 08:43; Admin Dose 325 MG; Start 02/19/19 at 09:00 Folic Acid (Folic Acid) 1 mg DAILY GTB Last administered on 02/23/19 08:43; Admin Dose 1 MG; Start 02/19/19 at 09:00 Guaifenesin/ Dextromethorphan (Robitussin Dm Liquid Cup) 5 ml Q4H GTB Last administered on 02/23/19 16:06; Admin Dose 5 ML; Start 02/19/19 at 03:30 Hydralazine HCl (Apresoline) 25 mg Q8 GTB Last administered on 02/23/19 15:13; Admin Dose 25 MG; Start 02/19/19 at 06:00 Lansoprazole (Prevacid) 30 mg DAILY@0600 GTB Last administered on 02/23/19 06:40; Admin Dose 30 MG; Start 02/19/19 at 06:00 Linagliptin (Tradjenta) 5 mg DAILY GTB Last administered on 02/23/19 08:44; Admin Dose 5 MG; Start 02/19/19 at 09:00 Lorazepam (Ativan) 0.5 mg HS PRN GTB ANXIETY Last administered on 02/22/19 22:39; Admin Dose 0.5 MG; Start 02/19/19 at 03:30 Magnesium Hydroxide (Milk Of Mag) 30 ml QHS GTB Last administered on 02/21/19 22:16; Admin Dose 30 ML; Start 02/19/19 at 21:00 Metoprolol Tartrate (Lopressor) 50 mg BID GTB Last administered on 02/22/19 21 :00; Admin Dose 50 MG; Start 02/19/19 at 09:00 Olanzapine (Zyprexa) 5 mg DAILY GTB Last administered on 02/23/19 08:43; Admin Dose 5 MG; Start 02/19/19 at 09:00 Ondansetron HCl (Zofran Tab) 4 mg Q4H PRN GTB NAUSEA AND/OR VOMITING; Start 02/19/19 at 03:30 Valproate Sodium (Depakene Liquid Cup) 250 mg Q8 GTB Last administered on 02/23/19 15:13; Admin Dose 250 MG; Start 02/19/19 at 06:00 Docusate Sodium (Colace Liquid Cup) 100 mg DAILY GTB Last administered on 02/23/19 08:42; Admin Dose 100 MG; Start 02/19/19 at 09:00 Docusate Sodium (Colace Liquid Cup) 100 mg Q12H PRN GTB CONSTIPATION; Start 02/19/19 at 04:00 Acetaminophen (Tylenol Tab) 650 mg Q6H PRN GTB .PAIN 1-3 OR TEMP Last admini stered on 02/19/19at 11:57; Admin Dose 650 MG; Start 02/19/19 at 03:35 Meropenem/Sodium Chloride 50 ml @ 100 mls/hr Q12H IVPB Last administered on 02/23/19at 06:40; Admin Dose 100 MLS/HR; Start 02/20/19 at 06:00 Caspofungin 50 mg/ Sodium Chloride 250 ml @ 250 mls/hr Q24H IVPB Last administered on 02/22/19at 17:41; Admin Dose 250 MLS/HR; Start 02/21/19 at 17:00 Heparin Sodium (Porcine) (Heparin (1000 Units/ml)) 4,000 unit AFTER DIALYSIS CATHETER Last administered on 02/21/19at 20:48; Admin Dose 4,000 UNIT; Start 02/20/19 at 16:00 Mupirocin (Bactroban) 1 applic BID TOP Last administered on 02/23/19at 08:42; Admin Dose 1 APPLIC; Start 02/22/19 at 14:00 Miscellaneous Information (*Rx Drug Level Order Reminder*) RANDOM VANCOMYCIN LEVEL IN AM 0500 ONCE XX ; Start 02/24/19 at 05:00; Stop 02/24/19 at 05:01 Linezolid (Zyvox) 600 mg BID PO Last administered on 02/23/19at 15:13; Admin Dose 600 MG; Start 02/23/19 at 13:30 JAMMIE MARQUEZ MD Feb 23, 2019 17:12
--- NOTE | 2019-02-23 17:34 | CONS ---
Assessment/Plan Assessment/Plan Assessment/Plan (Daily) Interval hx: HH stable. WBC wnl. Reticulocyte 2.6. ferritin 4490. On epogen. Pt had bm again. Despite speaking with RN yesterday, no FOB sent. D/W Desirae SHRESTHA. Pt denies n/v and abd pain. No overt signs of GI bleeding. Tolerating tube feeds at 30cc/hr. 1. Severe anemia,acute on chronic -GI bleed vs chronic disease -stable -no signs of GI bleeding noted per RN -retic 2.6, ferritin 4490 2. End-stage renal disease on dialysis. 3. Urinary tract infection. -positive yeast 4. Dysphagia, status post percutaneous endoscopic gastrostomy tube placement. 5. Hypertension. 6. Behavioral disorder. PLAN: Continue with PPI Anemia work up noted. FOB negative. Iron panel ordered. Aspiration precautions Consultation Date/Type/Reason Admit Date/Time Feb 19, 2019 at 01:01 Initial Consult Date 02/23/19 Requesting Provider: JILLIAN HOLLAND MD Date/Time of Note DATE: 02/23/19 TIME: 17:34 24 HR Interval Summary Constitutional: disoriented Exam/Review of Systems Exam Vitals Vital Signs Date Temp Pulse Resp B/P (MAP) Pulse Ox O2 O2 Flow FiO2 Time Delivery Rate 02/23/19 100 16:00 02/23/19 98.0 22 135/50 96 Room Air 15:58 (78) Intake and Output 02/22/19 02/22/19 02/23/19 1414:59 22:59 06:59 IntakeIntake Total 790 ml BalanceBalance 790 ml Constitutional: alert, oriented, well developed Psych: no complaints, nl mood/affect Head: normocephalic, atraumatic Eyes: nl conjunctiva, EOMI, nl lids, nl sclera, PERRL ENMT: nl external ears & nose, nl lips & teeth, nl nasal mucosa & septum Neck: supple, non-tender Respiratory: clear to auscultation, normal air movement Cardiovascular: regular rate and rhythm, nl pulses Gastrointestinal: soft, nl liver, spleen, non-tender Musculoskeletal: nl extremities to inspection, nl gait and stance Extremities: normal pulses 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, nl mental status, nl speech, nl strength Skin: nl turgor; No rash or lesions Lymph: nl lymph nodes Results Result Diagram: 02/23/19 0458 02/23/19 0458 Results 24hrs Laboratory Tests Test 02/22/19 22:00 02/23/19 04:58 Stool Occult Blood NEGATIVE White Blood Count 11.8 H Red Blood Count 3.09 L Hemoglobin 8.7 L Hematocrit 27.3 L Mean Corpuscular Volume 88.3 Mean Corpuscular Hemoglobin 28.2 L Mean Corpuscular Hemoglobin Concent 31.9 L Red Cell Distribution Width 16.1 H Platelet Count 278 Mean Platelet Volume 10.7 H Immature Granulocytes % 3.000 H Neutrophils % 71.8 Lymphocytes % 9.3 L Monocytes % 12.0 H Eosinophils % 3.1 Basophils % 0.8 Nucleated Red Blood Cells % 1.9 H Immature Granulocytes # 0.360 H Neutrophils # 8.5 H Lymphocytes # 1.1 Monocytes # 1.4 H Eosinophils # 0.4 Basophils # 0.1 Nucleated Red Blood Cells # 0.2 H Sodium Level 139 Potassium Level 4.6 Chloride Level 104 Carbon Dioxide Level 29 Anion Gap 6 Blood Urea Nitrogen 44 #H Creatinine 1.58 H Est Glomerular Filtrat Rate mL/min Glucose Level 140 Calcium Level 8.7 Phosphorus Level 1.8 #L Magnesium Level 3.0 H Medications Medication Current Medications IV Flush (NS 3 ml) 3 ml PER PROTOCOL IV ; Start 02/19/19 at 03:30 Lorazepam (Ativan) 0.5 mg Q8H PRN GTB .ANXIETY Last administered on 02/21/19at 09:06; Admin Dose 0.5 MG; Start 02/19/19 at 03:30 Ondansetron HCl (Zofran Inj) 4 mg Q6H PRN IV NAUSEA/VOMITING; Start 02/19/19 at 03:30 Acetaminophen (Tylenol Tab) 325 mg Q4H PRN GTB FOR FEVER 100AND ABOVE Last administered on 02/20/19at 20:13; Admin Dose 325 MG; Start 02/19/19 at 03:30 Acetaminophen (Tylenol Tab) 650 mg Q6H PRN GTB PAIN LEVEL 1-10/10 Last administered on 02/19/19at 21:49; Admin Dose 650 MG; Start 02/19/19 at 03:30 Amlodipine Besylate (Norvasc) 5 mg BID GTB Last administered on 02/22/19at 22:32; Admin Dose 5 MG; Start 02/19/19 at 09:00 Ascorbic Acid (Vitamin C) 500 mg DAILY GTB Last administered on 02/23/19 08:43; Admin Dose 500 MG; Start 02/19/19 at 09:00 Aspirin (Aspirin) 81 mg DAILY GTB Last administered on 02/23/19 08:43; Admin Dose 81 MG; Start 02/19/19 at 09:00 Atorvastatin Calcium (Lipitor) 40 mg QHS GTB Last administered on 02/22/19 22:31; Admin Dose 40 MG; Start 02/19/19 at 21:00 Ferrous Sulfate (Ferrous Sulfate (Ec)) 325 mg BID PO Last administered on 02/23/19 08:43; Admin Dose 325 MG; Start 02/19/19 at 09:00 Folic Acid (Folic Acid) 1 mg DAILY GTB Last administered on 02/23/19 08:43; Admin Dose 1 MG; Start 02/19/19 at 09:00 Guaifenesin/ Dextromethorphan (Robitussin Dm Liquid Cup) 5 ml Q4H GTB Last administered on 02/23/19 16:06; Admin Dose 5 ML; Start 02/19/19 at 03:30 Hydralazine HCl (Apresoline) 25 mg Q8 GTB Last administered on 02/23/19 15:13; Admin Dose 25 MG; Start 02/19/19 at 06:00 Lansoprazole (Prevacid) 30 mg DAILY@0600 GTB Last administered on 02/23/19 06:40; Admin Dose 30 MG; Start 02/19/19 at 06:00 Linagliptin (Tradjenta) 5 mg DAILY GTB Last administered on 02/23/19 08:44; Admin Dose 5 MG; Start 02/19/19 at 09:00 Lorazepam (Ativan) 0.5 mg HS PRN GTB ANXIETY Last administered on 02/22/19 22 :39; Admin Dose 0.5 MG; Start 02/19/19 at 03:30 Magnesium Hydroxide (Milk Of Mag) 30 ml QHS GTB Last administered on 02/21/19 22:16; Admin Dose 30 ML; Start 02/19/19 at 21:00 Metoprolol Tartrate (Lopressor) 50 mg BID GTB Last administered on 02/22/19 21:00; Admin Dose 50 MG; Start 02/19/19 at 09:00 Olanzapine (Zyprexa) 5 mg DAILY GTB Last administered on 02/23/19 08:43; Admin Dose 5 MG; Start 02/19/19 at 09:00 Ondansetron HCl (Zofran Tab) 4 mg Q4H PRN GTB NAUSEA AND/OR VOMITING; Start at 03:30 Valproate Sodium (Depakene Liquid Cup) 250 mg Q8 GTB Last administered on 02/23/19 15:13; Admin Dose 250 MG; Start 02/19/19 at 06:00 Docusate Sodium (Colace Liquid Cup) 100 mg DAILY GTB Last administered on 02/23/19 08:42; Admin Dose 100 MG; Start 02/19/19 at 09:00 Docusate Sodium (Colace Liquid Cup) 100 mg Q12H PRN GTB CONSTIPATION; Start 02/19/19 at 04:00 Acetaminophen (Tylenol Tab) 650 mg Q6H PRN GTB .PAIN 1-3 OR TEMP Last administered on 02/19/19 11:57; Admin Dose 650 MG; Start 02/19/19 at 03:35 Meropenem/Sodium Chloride 50 ml @ 100 mls/hr Q12H IVPB Last administered on 02/23/19 06:40; Admin Dose 100 MLS/HR; Start 02/20/19 at 06:00 Caspofungin 50 mg/ Sodium Chloride 250 ml @ 250 mls/hr Q24H IVPB Last administered on 02/22/19 17:41; Admin Dose 250 MLS/HR; Start 02/21/19 at 17:00 Heparin Sodium (Porcine) (Heparin (1000 Units/ml)) 4,000 unit AFTER DIALYSIS C ATHETER Last administered on 02/21/19 20:48; Admin Dose 4,000 UNIT; Start 02/20/19 at 16:00 Mupirocin (Bactroban) 1 applic BID TOP Last administered on 02/23/19 08:42; Admin Dose 1 APPLIC; Start 02/22/19 at 14:00 Miscellaneous Information (*Rx Drug Level Order Reminder*) RANDOM VANCOMYCIN LEVEL IN AM 0500 ONCE XX ; Start 02/24/19 at 05:00; Stop 02/24/19 at 05:01 Linezolid (Zyvox) 600 mg BID PO Last administered on 02/23/19at 15:13; Admin Dose 600 MG; Start 02/23/19 at 13:30 CHRISS WELCH MD Feb 23, 2019 17:34
[2019-02-23] MEDS: CASPOFUNGIN 50 MG in SOD CHLORIDE 0.9% 250 ML IVPB SCH (17:47)
--- NOTE | 2019-02-23 20:19 | PN ---
DATE: 02/23/2019 SUBJECTIVE: The patient is seen. She was found to have positive blood cultures with enterococcus sp ecies. Nephrology is considering removing Perm-A-Cath. Dr. Sagastume was consulted. PHYSICAL EXAMINATION: VITAL SIGNS: Temperature 98, pulse 97, respirations 22, blood pressure 135/50, saturation 96%. GENERAL: The patient is frail, currently undergoing dialysis. The patient is pale, alert, weak look ing. CARDIOVASCULAR: S1, S2, regular rate. LUNGS: Clear. ABDOMEN: Soft. G-tube in place. EXTREMITIES: No clubbing, cyanosis, or edema. LABORATORY DATA: White count 11.8, hemoglobin 8.7, hematocrit 27, platelet count 278 with normal dif ferential. Chemistry: Sodium is 139, potassium 4.6, bicarbonate 29, BUN is 44, creatinine 1.5 and g lucose 140. Phosphorus is slightly low at 1.8. MEDICATIONS: 1. Zyvox instead of the vancomycin 600 p.o. b.i.d. 2. Bactroban b.i.d. 3. Caspofungin. 4. Heparin 5000 with dialysis q.12h. 5. Lipitor 40 mg at bedtime. 6. Milk of magnesia at bedtime. 7. Norvasc 5 mg b.i.d. 8. Vitamin C 500 mg daily. 9. Aspirin 81 mg daily. 10. Ferrous sulphate 325 b.i.d. 11. Folic acid 1 mg daily. 12. Tradjenta 5 mg daily. 13. Lopressor 50 b.i.d. 14. Zyprexa 5 mg daily. 15. Colace 100 mg daily. 16. Hydralazine 25 q.8h. 17. Prevacid 30 mg daily. 18. Depakote 250 q.8h. 19. Colace 100 q.12h. p.r.n. 20. Tylenol p.r.n. 21. Ativan p.r.n. 22. Zofran p.r.n. ASSESSMENT AND PLAN: This is an 83-year-old [place] female with history of vascular dementia, diabe edelmira mellitus, end-stage renal disease, malnutrition, G-tube feeding with recurrent hospitalizations f or bacteremia and fungemia and urinary tract infection. Overall, very sick. 1. Respiratory. O2 support as needed. 2. Cardiovascular. The patient is being dialyzed for fluid removal. Vitals are otherwise stable. 3. Infectious disease. The patient is with line sepsis. She has recurrent infections. May need to have a Perm-A-Cath removed. Vascular surgeon was consulted. Remains on antibiotics with Merrem and Zyvox and antifungals with Cancidas. 4. Anemia. Transfuse p.r.n. Continue Epogen with dialysis. 5. End-stage renal disease, dialysis every Thursday, Thursday and Thursday. Currently being dialyzed, monitor electrolytes. 6. Dysphagia. Continue G-tube feeding. 7. Anxiety. Continue psych medication. 8. Disposition, once infection is under control she can follow up repeat blood cultures. Dictated By: DYLON HULL/MADAN Conf#: [id number] DID#: [id number] CC: DYLON WALLS MD; JOSE RAUL ANDREWS;*EndCC*
[2019-02-23] MEDS: MAGNESIUM HYDROXIDE 30ML CUP GTB SCH (20:56)
[2019-02-23] MEDS: ATORVASTATIN 40 MG TAB GTB SCH (20:57)
[2019-02-23] MEDS: LORAZEPAM 0.5 MG TAB GTB PRN (21:29)
[2019-02-24] VITALS (18 sets, daily range): BP systolic 102–165; BP diastolic 62–129; PULSE 82–97; RESP 14–22
[2019-02-24] MEDS: GUAIFENESIN/DM 5ML CUP GTB SCH ×6 (03:27→23:30)
[2019-02-24] MEDS: MEROPENEM 500MG/50 ML (PMX) 50 ML IVPB SCH (05:55)
[2019-02-24] MEDS: VALPROIC ACID LIQUID CUP 250 MG/5 ML CUP GTB SCH ×3 (05:55→21:04)
[2019-02-24] MEDS: LANSOPRAZOLE 30 MG CAP GTB SCH (05:56)
[2019-02-24] MEDS ORDERED: LIDOCAINE 1% (MDV) 20 ML INJ ONE (07:00)
[2019-02-24] MEDS ORDERED: IODIXANOL LOCM 100 ML BTL ONE (07:00)
[2019-02-24] MEDS ORDERED: HEPARIN 1000 UNITS/ML 10 ML INJ ONE (07:09)
[2019-02-24] MEDS ORDERED: FENTAnyl 50 MCG/ML VIAL ONE (07:31)
--- NOTE | 2019-02-24 08:04 | SIPON ---
Date/Time of Note Date/Time of Note DATE: 02/24/19 TIME: 08:03 Operative Report Preoperative Diagnosis ESRD, bacteremia, possible recurrent PC infection Postoperative Diagnosis same Operation/Procedure Performed Central vein venogram, venoplasty fibrin sheath, exchange of LIJ vein PC Surgeon see signature line roofer assistant n/a Anesthesia: moderate sedation Estimated blood loss: minimal Transfusion Required none Specimen Old PC tip Grafts/Implants none Complications none JAMMIE MARQUEZ MD Feb 24, 2019 08:04
--- NOTE | 2019-02-24 10:09 | RADRPT ---
Echocardiogram Report Patient Name: MIGUEL BAPatient ID: [id number] : 1935 (83y 8m)Study Date: 02/23/2019 2:10:10 PM Gender: FAccession #: [id number] Tech: Gene Dobson [facility] Location: 627-A Ref.Physician: PHYLICIA HOLCOMB Height(Cm): BSA: Weight(Kg): Quality: AdequateAccount #: Procedures: Echocardiographic Report: Transthoracic echocardiogram with complete 2D, M-Mode, and doppler examination. Indications: R/o Vegetation. Measurements: Doppler Measurement Value Normal Range RA Pressure 10.0 mmHg Findings: Left Ventricle: Normal left ventricular systolic function. Normal left ventricular cavity size. Mild concentric left ventricular hypertrophy. Ejection fraction is visually estimated at 55 %. Right Ventricle: Normal right ventricular size. Normal right ventricular systolic function. Left Atrium: The left atrium is normal in size. Right Atrium: The right atrium is normal in size. Mitral Valve: Mild mitral leaflet calcification. Mild mitral annular calcification. No evidence of endocarditis. Aortic Valve: Aortic valve not well visualized. Aortic cusps appear mildly calcified. Non coronary cusp appears moderately calcified. Trileaflet aortic valve. No aortic regurgitation. Tricuspid Valve: Normal appearance of the tricuspid valve. No evidence of endocarditis. Pericardium: Normal pericardium with no significant pericardial effusion. Aorta: Normal aortic root. IVC: Normal size and normal respiratory collapse consistent with normal right atrial pressure. Conclusions: Normal left ventricular systolic function. Normal left ventricular cavity size. Mild concentric left ventricular hypertrophy. Ejection fraction is visually estimated at 55 %. Mild mitral leaflet calcification. Mild mitral annular calcification. No evidence of endocarditis. Aortic valve not well visualized. Aortic cusps appear mildly calcified. Non coronary cusp appears moderately calcified. Trileaflet aortic valve. No aortic regurgitation. Normal appearance of the tricuspid valve. No evidence of endocarditis. Electronically Signed By: Scottie Stevens 2019-02-24 10:09:16 PDT
[2019-02-24] MEDS: DOCUSATE SODIUM 10 MG/ML (10ML CUP) GTB SCH (10:48)
[2019-02-24] MEDS: LINAGLIPTIN 5 MG TABLET GTB SCH (10:49)
[2019-02-24] MEDS: OLANZAPINE 5 MG TAB GTB SCH (10:49)
[2019-02-24] MEDS: ASCORBIC ACID 500 MG TAB GTB SCH (10:49)
[2019-02-24] MEDS: FERROUS SULFATE (EC) 325 MG TAB PO SCH ×2 (10:49→21:05)
[2019-02-24] MEDS: METOPROLOL 50 MG TAB GTB SCH ×2 (10:49→21:05)
[2019-02-24] MEDS: ASPIRIN 81 MG TAB GTB SCH (10:49)
[2019-02-24] MEDS: AMLODIPINE 5 MG TAB GTB SCH ×2 (10:50→21:06)
[2019-02-24] MEDS: FOLIC ACID 1 MG TAB GTB SCH (10:50)
[2019-02-24] MEDS: ZYVOX 600 MG TAB PO SCH (10:50)
[2019-02-24] MEDS: MUPIROCIN 2% 22 GM OINT TOP SCH ×2 (10:51→21:06)
--- NOTE | 2019-02-24 12:21 | CONS ---
Assessment/Plan Assessment/Plan Hospital Course (Demo Recall) No acute changes Indwelling: Left subclavian permacath, PEG Microbiology: Urine culture on admission grew Dominique glabrata blood culture growing Enterococcus Antimicrobials: Zyvox, Cancidas Merrem Chest x-ray on admission revealed no definite evidence of pneumonia or CHF Physical examination: This is a chronically ill-appearing wasted elderly woman who is in no distress. Head atraumatic normocephalic. Neck is supple. Chest rise symmetrical breath sounds clear, diminished bases. Heart: S1-S2. Abdomen soft bowel sounds present. Extremities without cyanosis edema. Assessment: 1. Sepsis, present on admission 2. Recurrent UTI 3. Gram-positive cocci bacteremia, rule out infected line 4. End-stage renal disease, hemodialysis dependent 5. Anemia 6. 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 Plan: Stable, no vegetations per ECHO, s/p bld cx's send yesterday from HD cath, change abx to IV Ampicillin and Vfend Consultation Date/Type/Reason Admit Date/Time Feb 19, 2019 at 01:01 Initial Consult Date Type of Consult id Requesting Provider: JILLIAN HOLLAND MD Date/Time of Note DATE: 02/24/19 TIME: 12:18 Exam/Review of Systems Exam Vitals Vital Signs Date Temp Pulse Resp B/P (MAP) Pulse Ox O2 O2 Flow FiO2 Time Delivery Rate 02/24/19 98.2 95 19 160/71 96 10:00 (100) 02/24/19 Room Air 06:02 Intake and Output 02/23/19 02/23/19 02/24/19 1515:00 23:00 07:00 IntakeIntake Total 890 ml OutputOutput Total 1800 ml BalanceBalance -1800 ml 890 ml Results Result Diagram: 02/24/19 0637 02/24/19 0638 Results 24hrs Laboratory Tests Test 02/24/19 06:37 02/24/19 06:38 White Blood Count 14.5 #H Red Blood Count 3.01 L Hemoglobin 8.4 L Hematocrit 26.9 L Mean Corpuscular Volume 89.4 Mean Corpuscular Hemoglobin 27.9 L Mean Corpuscular Hemoglobin Concent 31.2 L Red Cell Distribution Width 16.4 H Platelet Count 277 Mean Platelet Volume 10.5 H Immature Granulocytes % 2.500 H Neutrophils % 72.5 Lymphocytes % 12.0 L Monocytes % 9.6 Eosinophils % 2.8 Basophils % 0.6 Nucleated Red Blood Cells % 1.2 H Immature Granulocytes # 0.360 H Neutrophils # 10.5 H Lymphocytes # 1.7 Monocytes # 1.4 H Eosinophils # 0.4 Basophils # 0.1 Nucleated Red Blood Cells # 0.2 H Phosphorus Level 2.0 L Magnesium Level 2.2 Sodium Level 136 Potassium Level 4.6 Chloride Level 100 Carbon Dioxide Level 30 Anion Gap 6 Blood Urea Nitrogen 29 #H Creatinine 1.15 H Est Glomerular Filtrat Rate mL/min Glucose Level 129 Calcium Level 8.2 L Random Vancomycin Level 6.2 Medications Medication Current Medications IV Flush (NS 3 ml) 3 ml PER PROTOCOL IV ; Start 02/19/19 at 03:30 Lorazepam (Ativan) 0.5 mg Q8H PRN GTB .ANXIETY Last administered on 02/21/19 09:06; Admin Dose 0.5 MG; Start 02/19/19 at 03:30 Ondansetron HCl (Zofran Inj) 4 mg Q6H PRN IV NAUSEA/VOMITING; Start 02/19/19 at 03:30 Acetaminophen (Tylenol Tab) 325 mg Q4H PRN GTB FOR FEVER 100AND ABOVE Last administered on 02/20/19 20:13; Admin Dose 325 MG; Start 02/19/19 at 03:30 Acetaminophen (Tylenol Tab) 650 mg Q6H PRN GTB PAIN LEVEL 1-10/10 Last administered on 02/19/19 21:49; Admin Dose 650 MG; Start 02/19/19 at 03:30 Amlodipine Besylate (Norvasc) 5 mg BID GTB Last administered on 02/24/19 10:50; Admin Dose 5 MG; Start 02/19/19 at 09:00 Ascorbic Acid (Vitamin C) 500 mg DAILY GTB Last administered on 02/24/19 10:49; Admin Dose 500 MG; Start 02/19/19 at 09:00 Aspirin (Aspirin) 81 mg DAILY GTB Last administered on 02/24/19 10:49; Admin Dose 81 MG; Start 02/19/19 at 09:00 Atorvastatin Calcium (Lipitor) 40 mg QHS GTB Last administered on 02/23/19 20:57; Admin Dose 40 MG; Start 02/19/19 at 21:00 Ferrous Sulfate (Ferrous Sulfate (Ec)) 325 mg BID PO Last administered on 02/24/19 10:49; Admin Dose 325 MG; Start 02/19/19 at 09:00 Folic Acid (Folic Acid) 1 mg DAILY GTB Last administered on 02/24/19 10:50; Admin Dose 1 MG; Start 02/19/19 at 09:00 Guaifenesin/ Dextromethorphan (Robitussin Dm Liquid Cup) 5 ml Q4H GTB Last administered on 02/24/19 10:50; Admin Dose 5 ML; Start 02/19/19 at 03:30 Hydralazine HCl (Apresoline) 25 mg Q8 GTB Last administered on 02/24/19 05:56; Admin Dose 25 MG; Start 02/19/19 at 06:00 Lansoprazole (Prevacid) 30 mg DAILY@0600 GTB Last administered on 02/24/19 0 5:56; Admin Dose 30 MG; Start 02/19/19 at 06:00 Linagliptin (Tradjenta) 5 mg DAILY GTB Last administered on 02/24/19 10:49; Admin Dose 5 MG; Start 02/19/19 at 09:00 Lorazepam (Ativan) 0.5 mg HS PRN GTB ANXIETY Last administered on 02/23/19 21:29; Admin Dose 0.5 MG; Start 02/19/19 at 03:30 Magnesium Hydroxide (Milk Of Mag) 30 ml QHS GTB Last administered on 02/23/19 20:56; Admin Dose 30 ML; Start 02/19/19 at 21:00 Metoprolol Tartrate (Lopressor) 50 mg BID GTB Last administered on 02/24/19 10:49; Admin Dose 50 MG; Start 02/19/19 at 09:00 Olanzapine (Zyprexa) 5 mg DAILY GTB Last administered on 02/24/19 10:49; Admin Dose 5 MG; Start 02/19/19 at 09:00 Ondansetron HCl (Zofran Tab) 4 mg Q4H PRN GTB NAUSEA AND/OR VOMITING; Start 02/19/19 at 03:30 Valproate Sodium (Depakene Liquid Cup) 250 mg Q8 GTB Last administered on 4/18/19at 05:55; Admin Dose 250 MG; Start 02/19/19 at 06:00 Docusate Sodium (Colace Liquid Cup) 100 mg DAILY GTB Last administered on 02/24/19 10:48; Admin Dose 100 MG; Start 02/19/19 at 09:00 Docusate Sodium (Colace Liquid Cup) 100 mg Q12H PRN GTB CONSTIPATION; Start 02/19/19 at 04:00 Acetaminophen (Tylenol Tab) 650 mg Q6H PRN GTB .PAIN 1-3 OR TEMP Last adm inistered on 02/19/19 11:57; Admin Dose 650 MG; Start 02/19/19 at 03:35 Meropenem/Sodium Chloride 50 ml @ 100 mls/hr Q12H IVPB Last administered on 02/24/19 05:55; Admin Dose 100 MLS/HR; Start 02/20/19 at 06:00 Caspofungin 50 mg/ Sodium Chloride 250 ml @ 250 mls/hr Q24H IVPB Last administered on 02/23/19 17:47; Admin Dose 250 MLS/HR; Start 02/21/19 at 17:00 Heparin Sodium (Porcine) (Heparin (1000 Units/ml)) 4,000 unit AFTER DIALYSIS CATHETER Last administered on 02/21/19 20:48; Admin Dose 4,000 UNIT; Start 02/20/19 at 16:00 Mupirocin (Bactroban) 1 applic BID TOP Last administered on 02/24/19 10:51; Admin Dose 1 APPLIC; Start 02/22/19 at 14:00 Linezolid (Zyvox) 600 mg BID PO Last administered on 02/24/19 10:50; Admin Dose 600 MG; Start 02/23/19 at 13:30 PHYLICIA HOLCOMB NP Feb 24, 2019 12:21
--- NOTE | 2019-02-24 13:34 | OPR ---
DATE OF OPERATION: 02/24/2019 PREOPERATIVE DIAGNOSES: 1. End-stage renal disease. 2. Bacteremia with possible infected Perm-A-Cath. POSTOPERATIVE DIAGNOSES: 1. End-stage renal disease. 2. Bacteremia with possible infected Perm-A-Cath. PROCEDURES PERFORMED: 1. Central vein venogram. 2. Venoplasty of left innominate vein and superior vena cava (SVC) fibrin sheaths. 3. Exchange of left internal jugular (IJ) tunneled dialysis catheter over the wire with fluoroscopy. SURGEON: Jammie Nova MD ANESTHESIA: Moderate sedation and local. ESTIMATED BLOOD LOSS: Minimal. SPECIMENS: Old Perm-A-Cath tip. COMPLICATIONS: None. ESTIMATED BLOOD LOSS: Minimal. PREOPERATIVE INDICATIONS FOR PROCEDURE: This is an 83-year-old female with multiple medical conditions including severe dementia and end-stage renal disease with recurrent line sepsis. There is concern that the left IJ Perm-A-Cath is infected. After extensive discussions with the patient's thickener operator, Dr. Natarajan, and the patient's family, their desire is to preserve the left IJ access, given the possible risk of losing it if the catheter was removed completely. The patient would then potentially require femoral access, given that the right IJ has been used for catheters multiple times in the past as well. Therefore, the plan was to remove the old catheter and perform venoplasty of any possible fibrin sheaths within the central venous system that may be harboring bacteria for the recurrent line sepsis. A new catheter would then be placed. The indications, risks, and benefits of the procedure were discussed with the patient's family at length, and they understood and agreed to proceed. DESCRIPTION OF PROCEDURE: The patient was properly identified, brought to the angiography suite and placed in the supine position. She was administered fentanyl for pain. She also had to have restraints placed, given her severe dementia and inability to comprehend. Her left neck and chest along with the catheter were prepped and draped in the usual sterile fashion after the sutures had been removed. Local anesthesia was injected into the skin and subcutaneous tissue overlying the catheter cuff. Using gentle traction and blunt dissection, the scar tissue around the cuff was dissected free, and the catheter was then fully freed. An Amplatz wire was advanced through the venous port and placed into the inferior vena cava under fluoroscopy. The catheter was then retracted into the left IJ. Venogram was then performed. This demonstrated that the central system was patent; however, there were a couple of areas of potential stenotic lesions, especially along the area of the distal innominate vein. This may indicate areas of fibrin sheaths that had formed. Therefore, the catheter was removed, and the tip was sent for specimen. The 7-Chinese x 10 cm sheath was then advanced. A 10 x 40 balloon was then advanced into the central venous system and venoplasty of the SVC into the innominate vein, along with the entire innominate venoplasty. This resolved the areas of stenotic lesions. After this, a venogram was then performed, which demonstrated resolution of these areas. A new 23 cm from cuff-to-tip catheter was then advanced over the wire, then the sheath was removed. The tip was in most likely the proximal portion of the IVC/in the bottom of the right atrium. Both ports jaun back and flushed easily without any difficulty. The ports were then locked with concentrated heparin at 1000 units/mL at the appropriate volumes. The sutures were then placed to affix the catheter onto the chest wall. These were 3-0 nylon stitches. Caps were then placed along with a Biopatch and dry dressings. The patient tolerated the procedure well as well as without any immediate complications. She was transferred in good condition. Dictated By: JAMMIE CLAROS/MAADN Conf#: [id number] DID#: [id number] CC: DYLON WALLS MD;*EndCC* MTDD
[2019-02-24] MEDS: AMPICILLIN 1 GM/NS (PMX) 50 ML IVPB SCH ×2 (13:42→21:07)
--- NOTE | 2019-02-24 15:32 | CONS ---
Assessment/Plan Assessment/Plan Assessment/Plan (Daily) Hospital Course (Demo Recall) 1. Fevers, likely secondary to kaylah urinary tract infection, now bld cx positive gram + Entercoccus 2. End-stage renal disease on hemodialysis. 3. Urinary tract infection. 4. Hypertension. 5. Dementia. 6. Diabetes mellitus type II. 7. Diastolic heart failure. 8. Moderate protein energy malnutrition with cachexia. 9. Osteoarthritis. 10. GT status Assessment/Plan (Daily) - status post. Permacath exchange today had spoken to vascular yesterday line would holiday will have a not have been a good option since patient has lost access site before when IINE holiday was done Ampicillin and voriconazole per ID Apply sandbags - HD MWF , HD tMW - renally dose all meds Consultation Date/Type/Reason Admit Date/Time Feb 19, 2019 at 01:01 Initial Consult Date Requesting Provider: JILLIAN HOLLAND MD Date/Time of Note DATE: 02/24/19 TIME: 15:30 24 HR Interval Summary Free Text/Dictation Status post permacath replacement today Exam/Review of Systems Exam Vitals Vital Signs Date Temp Pulse Resp B/P (MAP) Pulse Ox O2 O2 Flow FiO2 Time Delivery Rate 02/24/19 98.2 85 19 147/62 95 14:00 (90) 02/24/19 Room Air 06:02 Intake and Output 02/23/19 02/23/19 02/24/19 1515:00 23:00 07:00 IntakeIntake Total 1190 ml OutputOutput Total 1800 ml BalanceBalance -1800 ml 1190 ml Exam GENERAL: Patient is frail, resting. HEENT: Normocephalic, atraumatic. HEART: Regular rate and rhythm. LUNGS: Clear to auscultation bilaterally. The patient has a G-tube in place. ABDOMEN. Binder up in the chest. EXTREMITIES: Has a left upper extremity Perm-A-Cath OOZING, muscle atrophy. Results Result Diagram: 02/24/19 0637 02/24/19 0638 Results 24hrs Laboratory Tests Test 02/24/19 06:37 02/24/19 06:38 White Blood Count 14.5 #H Red Blood Count 3.01 L Hemoglobin 8.4 L Hematocrit 26.9 L Mean Corpuscular Volume 89.4 Mean Corpuscular Hemoglobin 27.9 L Mean Corpuscular Hemoglobin Concent 31.2 L Red Cell Distribution Width 16.4 H Platelet Count 277 Mean Platelet Volume 10.5 H Immature Granulocytes % 2.500 H Neutrophils % 72.5 Lymphocytes % 12.0 L Monocytes % 9.6 Eosinophils % 2.8 Basophils % 0.6 Nucleated Red Blood Cells % 1.2 H Immature Granulocytes # 0.360 H Neutrophils # 10.5 H Lymphocytes # 1.7 Monocytes # 1.4 H Eosinophils # 0.4 Basophils # 0.1 Nucleated Red Blood Cells # 0.2 H Phosphorus Level 2.0 L Magnesium Level 2.2 Sodium Level 136 Potassium Level 4.6 Chloride Level 100 Carbon Dioxide Level 30 Anion Gap 6 Blood Urea Nitrogen 29 #H Creatinine 1.15 H Est Glomerular Filtrat Rate mL/min Glucose Level 129 Calcium Level 8.2 L Random Vancomycin Level 6.2 Medications Medication Current Medications IV Flush (NS 3 ml) 3 ml PER PROTOCOL IV ; Start 02/19/19 at 03:30 Lorazepam (Ativan) 0.5 mg Q8H PRN GTB .ANXIETY Last administered on 02/21/19 09:06; Admin Dose 0.5 MG; Start 02/19/19 at 03:30 Ondansetron HCl (Zofran Inj) 4 mg Q6H PRN IV NAUSEA/VOMITING; Start 02/19/19 at 03:30 Acetaminophen (Tylenol Tab) 325 mg Q4H PRN GTB FOR FEVER 100AND ABOVE Last administered on 02/20/19 20:13; Admin Dose 325 MG; Start 02/19/19 at 03:30 Acetaminophen (Tylenol Tab) 650 mg Q6H PRN GTB PAIN LEVEL 1-10/10 Last administered on 02/19/19 21:49; Admin Dose 650 MG; Start 02/19/19 at 03:30 Amlodipine Besylate (Norvasc) 5 mg BID GTB Last administered on 02/24/19 10:50; Admin Dose 5 MG; Start 02/19/19 at 09:00 Ascorbic Acid (Vitamin C) 500 mg DAILY GTB Last administered on 02/24/19 10:49; Admin Dose 500 MG; Start 02/19/19 at 09:00 Aspirin (Aspirin) 81 mg DAILY GTB Last administered on 02/24/19 10:49; Admin Dose 81 MG; Start 02/19/19 at 09:00 Atorvastatin Calcium (Lipitor) 40 mg QHS GTB Last administered on 02/23/19 20:57; Admin Dose 40 MG; Start 02/19/19 at 21:00 Ferrous Sulfate (Ferrous Sulfate (Ec)) 325 mg BID PO Last administered on 02/24/19 10:49; Admin Dose 325 MG; Start 02/19/19 at 09:00 Folic Acid (Folic Acid) 1 mg DAILY GTB Last administered on 02/24/19 10:50; Admin Dose 1 MG; Start 02/19/19 at 09:00 Guaifenesin/ Dextromethorphan (Robitussin Dm Liquid Cup) 5 ml Q4H GTB Last administered on 02/24/19 10:50; Admin Dose 5 ML; Start 02/19/19 at 03:30 Hydralazine HCl (Apresoline) 25 mg Q8 GTB Last administered on 02/24/19 13:29; Admin Dose 25 MG; Start 02/19/19 at 06:00 Lansoprazole (Prevacid) 30 mg DAILY@0600 GTB Last administered on 02/24/19 05:56; Admin Dose 30 MG; Start 02/19/19 at 06:00 Linagliptin (Tradjenta) 5 mg DAILY GTB Last administered on 02/24/19 10:49; Admin Dose 5 MG; Start 02/19/19 at 09:00 Lorazepam (Ativan) 0.5 mg HS PRN GTB ANXIETY Last administered on 02/23/19 21:29; Admin Dose 0.5 MG; Start 02/19/19 at 03:30 Magnesium Hydroxide (Milk Of Mag) 30 ml QHS GTB Last administered on 02/23/19 20:56; Admin Dose 30 ML; Start 02/19/19 at 21:00 Metoprolol Tartrate (Lopressor) 50 mg BID GTB Last administered on 02/24/19 10:49; Admin Dose 50 MG; Start 02/19/19 at 09:00 Olanzapine (Zyprexa) 5 mg DAILY GTB Last administered on 02/24/19 10:49; Admin Dose 5 MG; Start 02/19/19 at 09:00 Ondansetron HCl (Zofran Tab) 4 mg Q4H PRN GTB NAUSEA AND/OR VOMITING; Start 02/19/19 at 03:30 Valproate Sodium (Depakene Liquid Cup) 250 mg Q8 GTB Last administered on 02/24/19 13:28; Admin Dose 250 MG; Start 02/19/19 at 06:00 Docusate Sodium (Colace Liquid Cup) 100 mg DAILY GTB Last administered on 02/24/19 10:48; Admin Dose 100 MG; Start 02/19/19 at 09:00 Docusate Sodium (Colace Liquid Cup) 100 mg Q12H PRN GTB CONSTIPATION; Start 02/19/19 at 04:00 Acetaminophen (Tylenol Tab) 650 mg Q6H PRN GTB .PAIN 1-3 OR TEMP Last administered on 02/19/19 11:57; Admin Dose 650 MG; Start 02/19/19 at 03:35 Heparin Sodium (Porcine) (Heparin (1000 Units/ml)) 4,000 unit AFTER DIALYSIS CATHETER Last administered on 02/21/19 20:48; Admin Dose 4,000 UNIT; Start 02/20/19 at 16:00 Mupirocin (Bactroban) 1 applic BID TOP Last administered on 02/24/19 10:51; Admin Dose 1 APPLIC; Start 02/22/19 at 14:00 Ampicillin 50 ml @ 100 mls/hr Q8 IVPB Last administered on 02/24/19 13:42; Admin Dose 100 MLS/HR; Start 02/24/19 at 14:00 Voriconazole (Vfend) 200 mg BID PO ; Start 02/24/19 at 21:00 JOSE RAUL ANDREWS MD Feb 24, 2019 15:32
--- NOTE | 2019-02-24 18:57 | CONS ---
Assessment/Plan Assessment/Plan Assessment/Plan (Daily) Assessment/Plan Assessment/Plan (Daily) Interval hx: HH stable. WBC wnl. Reticulocyte 2.6. ferritin 4490. On epogen. Pt had bm again. Despite speaking with RN yesterday, no FOB sent. D/W Desirae SHRESTHA. Pt denies n/v and abd pain. No overt signs of GI bleeding. Tolerating tube feeds at 30cc/hr. 1. Severe anemia,acute on chronic -GI bleed vs chronic disease -stable -no signs of GI bleeding noted per RN -retic 2.6, ferritin 4490 2. End-stage renal disease on dialysis. 3. Urinary tract infection. -positive yeast 4. Dysphagia, status post percutaneous endoscopic gastrostomy tube placement. 5. Hypertension. 6. Behavioral disorder. 7. Infected perm a cath it was changed PLAN: Continue with PPI Anemia work up noted. FOB negative. Iron panel ordered. Aspiration precautions Consultation Date/Type/Reason Admit Date/Time Feb 19, 2019 at 01:01 Initial Consult Date 02/23/19 Requesting Provider: JILLIAN HOLLAND MD Date/Time of Note DATE: 02/24/19 TIME: 18:56 24 HR Interval Summary Constitutional: no complaints Exam/Review of Systems Exam Vitals Vital Signs Date Temp Pulse Resp B/P (MAP) Pulse Ox O2 O2 Flow FiO2 Time Delivery Rate 02/24/19 97.7 89 14 143/63 95 Room Air 18:33 (89) Intake and Output 02/23/19 02/23/19 02/24/19 1515:00 23:00 07:00 IntakeIntake Total 1190 ml OutputOutput Total 1800 ml BalanceBalance -1800 ml 1190 ml Constitutional: alert, oriented, well developed Psych: no complaints, nl mood/affect Head: normocephalic, atraumatic Eyes: nl conjunctiva, EOMI, nl lids, nl sclera, PERRL ENMT: nl external ears & nose, nl lips & teeth, nl nasal mucosa & septum Neck: supple, non-tender Respiratory: clear to auscultation, normal air movement Cardiovascular: regular rate and rhythm, nl pulses Gastrointestinal: soft, nl liver, spleen, non-tender Musculoskeletal: nl extremities to inspection, nl gait and stance Extremities: normal pulses 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: [employer] II-XII intact, nl mental status, nl speech, nl strength Skin: nl turgor; No rash or lesions Lymph: nl lymph nodes Results Result Diagram: 02/24/19 0637 02/24/19 0638 Results 24hrs Laboratory Tests Test 02/24/19 06:37 02/24/19 06:38 White Blood Count 14.5 #H Red Blood Count 3.01 L Hemoglobin 8.4 L Hematocrit 26.9 L Mean Corpuscular Volume 89.4 Mean Corpuscular Hemoglobin 27.9 L Mean Corpuscular Hemoglobin Concent 31.2 L Red Cell Distribution Width 16.4 H Platelet Count 277 Mean Platelet Volume 10.5 H Immature Granulocytes % 2.500 H Neutrophils % 72.5 Lymphocytes % 12.0 L Monocytes % 9.6 Eosinophils % 2.8 Basophils % 0.6 Nucleated Red Blood Cells % 1.2 H Immature Granulocytes # 0.360 H Neutrophils # 10.5 H Lymphocytes # 1.7 Monocytes # 1.4 H Eosinophils # 0.4 Basophils # 0.1 Nucleated Red Blood Cells # 0.2 H Phosphorus Level 2.0 L Magnesium Level 2.2 Sodium Level 136 Potassium Level 4.6 Chloride Level 100 Carbon Dioxide Level 30 Anion Gap 6 Blood Urea Nitrogen 29 #H Creatinine 1.15 H Est Glomerular Filtrat Rate mL/min Glucose Level 129 Calcium Level 8.2 L Random Vancomycin Level 6.2 Medications Medication Current Medications IV Flush (NS 3 ml) 3 ml PER PROTOCOL IV ; Start 02/19/19 at 03:30 Lorazepam (Ativan) 0.5 mg Q8H PRN GTB .ANXIETY Last administered on 02/21/19at 09:06; Admin Dose 0.5 MG; Start 02/19/19 at 03:30 Ondansetron HCl (Zofran Inj) 4 mg Q6H PRN IV NAUSEA/VOMITING; Start 02/19/19 at 03:30 Acetaminophen (Tylenol Tab) 325 mg Q4H PRN GTB FOR FEVER 100AND ABOVE Last administered on 02/20/19at 20:13; Admin Dose 325 MG; Start 02/19/19 at 03:30 Acetaminophen (Tylenol Tab) 650 mg Q6H PRN GTB PAIN LEVEL 1-10/10 Last ad ministered on 02/19/19at 21:49; Admin Dose 650 MG; Start 02/19/19 at 03:30 Amlodipine Besylate (Norvasc) 5 mg BID GTB Last administered on 02/24/19 10:50; Admin Dose 5 MG; Start 02/19/19 at 09:00 Ascorbic Acid (Vitamin C) 500 mg DAILY GTB Last administered on 02/24/19 10:49; Admin Dose 500 MG; Start 02/19/19 at 09:00 Aspirin (Aspirin) 81 mg DAILY GTB Last administered on 02/24/19 10:49; Admin Dose 81 MG; Start 02/19/19 at 09:00 Atorvastatin Calcium (Lipitor) 40 mg QHS GTB Last administered on 02/23/19 20:57; Admin Dose 40 MG; Start 02/19/19 at 21:00 Ferrous Sulfate (Ferrous Sulfate (Ec)) 325 mg BID PO Last administered on 02/24/19 10:49; Admin Dose 325 MG; Start 02/19/19 at 09:00 Folic Acid (Folic Acid) 1 mg DAILY GTB Last administered on 02/24/19 10:50; Admin Dose 1 MG; Start 02/19/19 at 09:00 Guaifenesin/ Dextromethorphan (Robitussin Dm Liquid Cup) 5 ml Q4H GTB Last administered on 02/24/19 16:43; Admin Dose 5 ML; Start 02/19/19 at 03:30 Hydralazine HCl (Apresoline) 25 mg Q8 GTB Last administered on 02/24/19 13:29; Admin Dose 25 MG; Start 02/19/19 at 06:00 Lansoprazole (Prevacid) 30 mg DAILY@0600 GTB Last administered on 02/24/19 05:56; Admin Dose 30 MG; Start 02/19/19 at 06:00 Linagliptin (Tradjenta) 5 mg DAILY GTB Last administered on 02/24/19 10:49; Admin Dose 5 MG; Start 02/19/19 at 09:00 Lorazepam (Ativan) 0.5 mg HS PRN GTB ANXIETY Last administered on 02/23/19 21:29; Admin Dose 0.5 MG; Start 02/19/19 at 03:30 Magnesium Hydroxide (Milk Of Mag) 30 ml QHS GTB Last administered on 02/23/19 20:56; Admin Dose 30 ML; Start 02/19/19 at 21:00 Metoprolol Tartrate (Lopressor) 50 mg BID GTB Last administered on 02/24/19 10:49; Admin Dose 50 MG; Start 02/19/19 at 09:00 Olanzapine (Zyprexa) 5 mg DAILY GTB Last administered on 02/24/19 10:49; Admin Dose 5 MG; Start 02/19/19 at 09:00 Ondansetron HCl (Zofran Tab) 4 mg Q4H PRN GTB NAUSEA AND/OR VOMITING; Start 02/19/19 at 03:30 Valproate Sodium (Depakene Liquid Cup) 250 mg Q8 GTB Last administered on 02/24/19 13:28; Admin Dose 250 MG; Start 02/19/19 at 06:00 Docusate Sodium (Colace Liquid Cup) 100 mg DAILY GTB Last administered on 02/24/19 10:48; Admin Dose 100 MG; Start 02/19/19 at 09:00 Docusate Sodium (Colace Liquid Cup) 100 mg Q12H PRN GTB CONSTIPATION; Start 02/19/19 at 04:00 Acetaminophen (Tylenol Tab) 650 mg Q6H PRN GTB .PAIN 1-3 OR TEMP Last administered on 02/19/19 11:57; Admin Dose 650 MG; Start 02/19/19 at 03:35 Heparin Sodium (Porcine) (Heparin (1000 Units/ml)) 4,000 unit AFTER DIALYSIS CATHETER Last administered on 02/21/19 20:48; Admin Dose 4,000 UNIT; Start 02/20/19 at 16:00 Mupirocin (Bactroban) 1 applic BID TOP Last administered on 02/24/19 10:51; Admin Dose 1 APPLIC; Start 02/22/19 at 14:00 Ampicillin 50 ml @ 100 mls/hr Q8 IVPB Last administered on 02/24/19 13:42; Admin Dose 100 MLS/HR; Start 02/24/19 at 14:00 Voriconazole (Vfend) 200 mg BID PO ; Start 02/24/19 at 21:00 CHRISS WELCH MD Feb 24, 2019 18:57
--- NOTE | 2019-02-24 19:28 | PN ---
DATE: 02/24/2019 SUBJECTIVE: The patient was seen. I appreciate vascular surgery input. This patient had an exchang e of left internal jugular tunneled dialysis catheter over wire with fluoroscopy, venoplasty of left innominate vein and superior vena cava, fibrin sheath. The patient tolerated procedure well. PHYSICAL EXAMINATION: VITAL SIGNS: Temperature 98.2, pulse 98, respirations 14, blood pressure is ____, saturation 97% on room air. GENERAL: In no acute distress. The patient is responsive. CARDIOVASCULAR: S1, S2, regular rate. LUNGS: Clear. ABDOMEN: Soft, nontender. G-tube in place. EXTREMITIES: No clubbing, cyanosis or edema. LABORATORY DATA: White count is 14.5, elevated, hemoglobin 8.4, hematocrit 27, platelet count is 277 , neutrophils 73%, lymphs 12%. Chemistry: Sodium 133, potassium 4.6, chloride 100, bicarbonate 30, BUN is 29, creatinine of 1.15, glucose 129. MEDICATIONS: Reviewed and include: 1. Vfend. 2. Ampicillin. 3. Bactroban. 4. Heparin. 5. Lipitor. 6. Milk of Magnesia. 7. Norvasc. 8. Vitamin C. 9. Aspirin. 10. Ferrous sulfate. 11. Folic acid. 12. Tradjenta. 13. Lopressor. 14. Zyprexa. 15. Colace. 16. Prevacid. 17. Depakote. 18. Tylenol. 19. Ativan. 20. ____. ASSESSMENT AND PLAN: This is an 83-year-old [place]er female with history of vascular dementia, diabe edelmira mellitus, end-stage renal disease, malnutrition on G-tube feeding, recurrent hospitalizations for bacteremia and fungemia, urinary tract infection, overall very sick. 1. Respiratory: O2 support as needed. 2. Cardiovascular: Continue with dialysis for fluid removal. Overall, vitals are stable. 3. Infectious disease: The patient likely with line sepsis. Exchange was done with vascular surger y. Follow up all cultures. Follow WBC. Antibiotics were changed to the above. 4. Anemia. Transfuse p.r.n. Epogen with dialysis. 5. End-stage renal disease, on dialysis every Thursday, Thursday, Thursday. Next dialysis is tomorrow. 6. Dysphagia. Continue G-tube feeding. 7. Anxiety. Continue psychiatric meds. Unfortunately, we will place on restraints due to high risk of fall and danger to self. 8. Disposition: Hopefully soon once leukocytosis resolved and blood cultures are negative. We will follow. Dictated By: DYLON HULL/MADAN Conf#: [id number] DID#: [id number] CC: JOSE RAUL ANDREWS;*EndCC*
[2019-02-24] MEDS: MAGNESIUM HYDROXIDE 30ML CUP GTB SCH (21:04)
[2019-02-24] MEDS: VORICONAZOLE 200 MG TAB PO SCH (21:05)
[2019-02-24] MEDS: ATORVASTATIN 40 MG TAB GTB SCH (21:05)
[2019-02-25] VITALS (32 sets, daily range): BP systolic 96–151; BP diastolic 49–71; PULSE 44–97; RESP 17–22
[2019-02-25] MEDS: GUAIFENESIN/DM 5ML CUP GTB SCH ×6 (03:40→21:44)
[2019-02-25] MEDS: AMPICILLIN 1 GM/NS (PMX) 50 ML IVPB SCH ×3 (05:10→21:44)
[2019-02-25] MEDS: VALPROIC ACID LIQUID CUP 250 MG/5 ML CUP GTB SCH ×3 (05:10→21:44)
[2019-02-25] MEDS: LANSOPRAZOLE 30 MG CAP GTB SCH (05:11)
[2019-02-25] MEDS: DOCUSATE SODIUM 10 MG/ML (10ML CUP) GTB SCH (10:37)
[2019-02-25] MEDS: VORICONAZOLE 200 MG TAB PO SCH ×2 (10:37→21:44)
[2019-02-25] MEDS: LINAGLIPTIN 5 MG TABLET GTB SCH (10:38)
[2019-02-25] MEDS: ASPIRIN 81 MG TAB GTB SCH (10:39)
[2019-02-25] MEDS: FERROUS SULFATE (EC) 325 MG TAB PO SCH ×2 (10:39→21:47)
[2019-02-25] MEDS: OLANZAPINE 5 MG TAB GTB SCH (10:40)
[2019-02-25] MEDS: FOLIC ACID 1 MG TAB GTB SCH (10:40)
[2019-02-25] MEDS: ASCORBIC ACID 500 MG TAB GTB SCH (10:40)
[2019-02-25] MEDS: METOPROLOL 50 MG TAB GTB SCH ×2 (10:41→22:00)
[2019-02-25] MEDS: AMLODIPINE 5 MG TAB GTB SCH ×2 (10:41→21:45)
[2019-02-25] MEDS: MUPIROCIN 2% 22 GM OINT TOP SCH ×2 (10:43→21:47)
--- NOTE | 2019-02-25 11:21 | CONS ---
Assessment/Plan Assessment/Plan Hospital Course (Demo Recall) 1. Fevers, likely secondary to urinary tract infection, now bld cx positive gram + Entercoccus 2. End-stage renal disease on hemodialysis. 3. Urinary tract infection. 4. Hypertension. 5. Dementia. 6. Diabetes mellitus type II. 7. Diastolic heart failure. 8. Moderate protein energy malnutrition with cachexia. 9. Osteoarthritis. 10. GT status 11. Anemia of chronic disease Assessment/Plan (Daily) -blood cultures are pending second set - status post Permacath exchange -Ampicillin and voriconazole per ID - HD MWF , HD today - renally dose all meds Consultation Date/Type/Reason Admit Date/Time Feb 19, 2019 at 01:01 Initial Consult Date 02/19/2019 Type of Consult nephrology Requesting Provider: JILLIAN HOLLAND MD Date/Time of Note DATE: 02/25/19 TIME: 11:17 24 HR Interval Summary Constitutional: no complaints Exam/Review of Systems Exam Vitals Vital Signs Date Temp Pulse Resp B/P (MAP) Pulse Ox O2 O2 Flow FiO2 Time Delivery Rate 02/25/19 96 08:13 02/25/19 98.5 20 121/57 93 07:48 (78) 02/25/19 Room Air 06:39 Intake and Output 02/24/19 02/24/19 02/25/19 1515:00 23:00 07:00 IntakeIntake Total 50 ml 380 ml 100 ml BalanceBalance 50 ml 380 ml 100 ml Exam left chest Permcath Constitutional: alert, frail Psych: confusion Head: normocephalic Neck: supple Respiratory: diminished breath sounds Cardiovascular: regular rate and rhythm Gastrointestinal: soft, surgical scars, other (GT) Musculoskeletal: muscle weakness Results Result Diagram: 02/25/19 0514 02/25/19 0514 Results 24hrs Laboratory Tests Test 02/25/19 05:14 White Blood Count 12.4 H Red Blood Count 2.98 L Hemoglobin 8.3 L Hematocrit 26.5 L Mean Corpuscular Volume 88.9 Mean Corpuscular Hemoglobin 27.9 L Mean Corpuscular Hemoglobin Concent 31.3 L Red Cell Distribution Width 16.5 H Platelet Count 297 Mean Platelet Volume 10.9 H Immature Granulocytes % 3.100 H Neutrophils % 75.1 Lymphocytes % 10.0 L Monocytes % 9.3 Eosinophils % 2.0 Basophils % 0.5 Nucleated Red Blood Cells % 1.2 H Immature Granulocytes # 0.380 H Neutrophils # 9.3 H Lymphocytes # 1.2 Monocytes # 1.2 H Eosinophils # 0.3 Basophils # 0.1 Nucleated Red Blood Cells # 0.2 H Sodium Level 136 Potassium Level 4.6 Chloride Level 102 Carbon Dioxide Level 30 Anion Gap 4 L Blood Urea Nitrogen 43 #H Creatinine 1.64 H Est Glomerular Filtrat Rate mL/min Glucose Level 135 Calcium Level 8.7 Phosphorus Level 2.5 Magnesium Level 2.4 Medications Medication Current Medications IV Flush (NS 3 ml) 3 ml PER PROTOCOL IV ; Start 02/19/19 at 03:30 Lorazepam (Ativan) 0.5 mg Q8H PRN GTB .ANXIETY Last administered on 02/21/19 09:06; Admin Dose 0.5 MG; Start 02/19/19 at 03:30 Ondansetron HCl (Zofran Inj) 4 mg Q6H PRN IV NAUSEA/VOMITING; Start 02/19/19 at 03:30 Acetaminophen (Tylenol Tab) 325 mg Q4H PRN GTB FOR FEVER 100AND ABOVE Last administered on 02/20/19 20:13; Admin Dose 325 MG; Start 02/19/19 at 03:30 Acetaminophen (Tylenol Tab) 650 mg Q6H PRN GTB PAIN LEVEL 1-10/10 Last administered on 02/19/19 21:49; Admin Dose 650 MG; Start 02/19/19 at 03:30 Amlodipine Besylate (Norvasc) 5 mg BID GTB Last administered on 02/25/19 10:41; Admin Dose 5 MG; Start 02/19/19 at 09:00 Ascorbic Acid (Vitamin C) 500 mg DAILY GTB Last administered on 02/25/19 10:40; Admin Dose 500 MG; Start 02/19/19 at 09:00 Aspirin (Aspirin) 81 mg DAILY GTB Last administered on 02/25/19 10:39; Admin Dose 81 MG; Start 02/19/19 at 09:00 Atorvastatin Calcium (Lipitor) 40 mg QHS GTB Last administered on 02/24/19 21:05; Admin Dose 40 MG; Start 02/19/19 at 21:00 Ferrous Sulfate (Ferrous Sulfate (Ec)) 325 mg BID PO Last administered on 10:39; Admin Dose 325 MG; Start 02/19/19 at 09:00 Folic Acid (Folic Acid) 1 mg DAILY GTB Last administered on 02/25/19 10:40; Admin Dose 1 MG; Start 02/19/19 at 09:00 Guaifenesin/ Dextromethorphan (Robitussin Dm Liquid Cup) 5 ml Q4H GTB Last administered on 02/25/19 10:37; Admin Dose 5 ML; Start 02/19/19 at 03:30 Hydralazine HCl (Apresoline) 25 mg Q8 GTB Last administered on 02/25/19 05:11; Admin Dose 25 MG; Start 02/19/19 at 06:00 Lansoprazole (Prevacid) 30 mg DAILY@0600 GTB Last administered on 02/25/19 05:11; Admin Dose 30 MG; Start 02/19/19 at 06:00 Linagliptin (Tradjenta) 5 mg DAILY GTB Last administered on 02/25/19 10:38; Admin Dose 5 MG; Start 02/19/19 at 09:00 Lorazepam (Ativan) 0.5 mg HS PRN GTB ANXIETY Last administered on 02/23/19 21:29; Admin Dose 0.5 MG; Start 02/19/19 at 03:30 Magnesium Hydroxide (Milk Of Mag) 30 ml QHS GTB Last administered on 02/24/19 21:04; Admin Dose 30 ML; Start 02/19/19 at 21:00 Metoprolol Tartrate (Lopressor) 50 mg BID GTB Last administered on 02/25/19 10:41; Admin Dose 50 MG; Start 02/19/19 at 09:00 Olanzapine (Zyprexa) 5 mg DAILY GTB Last administered on 02/25/19 10:40; Admin Dose 5 MG; Start 02/19/19 at 09:00 Ondansetron HCl (Zofran Tab) 4 mg Q4H PRN GTB NAUSEA AND/OR VOMITING; Start 02/19/19 at 03:30 Valproate Sodium (Depakene Liquid Cup) 250 mg Q8 GTB Last administered on 02/25/19 05:10; Admin Dose 250 MG; Start 02/19/19 at 06:00 Docusate Sodium (Colace Liquid Cup) 100 mg DAILY GTB Last administered on 02/25/19 10:37; Admin Dose 100 MG; Start 02/19/19 at 09:00 Docusate Sodium (Colace Liquid Cup) 100 mg Q12H PRN GTB CONSTIPATION; Start 02/19/19 at 04:00 Acetaminophen (Tylenol Tab) 650 mg Q6H PRN GTB .PAIN 1-3 OR TEMP Last administered on 02/19/19 11:57; Admin Dose 650 MG; Start 02/19/19 at 03:35 Heparin Sodium (Porcine) (Heparin (1000 Units/ml)) 4,000 unit AFTER DIALYSIS CATHETER Last administered on 02/21/19 20:48; Admin Dose 4,000 UNIT; Start 02/20/19 at 16:00 Mupirocin (Bactroban) 1 applic BID TOP Last administered on 02/25/19 10:43; Admin Dose 1 APPLIC; Start 02/22/19 at 14:00 Ampicillin 50 ml @ 100 mls/hr Q8 IVPB Last administered on 02/25/19 05:10; Admin Dose 100 MLS/HR; Start 02/24/19 at 14:00 Voriconazole (Vfend) 200 mg BID PO Last administered on 02/25/19 10:37; Admin Dose 200 MG; Start 02/24/19 at 21:00 FLAVIO CLAYTON Feb 25, 2019 11:21
--- NOTE | 2019-02-25 12:01 | PN ---
DATE: 02/25/2019 SUBJECTIVE: The patient seen. Patient is currently sleeping, lethargic. Case discussed with [facility] staff. Repeat blood culture on 02/23/2019 negative. PHYSICAL EXAMINATION: VITAL SIGNS: Temperature 98.5, pulse 96, respirations 20, blood pressure 121/57, saturation 93% to 9 5% on room air. GENERAL: No acute distress. HEENT: Normocephalic, atraumatic. Pale, frail. CARDIOVASCULAR: S1, S2. Left upper chest IJ Perm-A-Cath. ABDOMEN: Soft. G-tube in place. EXTREMITIES: No clubbing, cyanosis. Patient with severe caloric malnutrition. BMI 16.4, white coun t improved to 12.4, hemoglobin 8.3, hematocrit 27, platelets 297, neutrophils 75%, sat 10%. Chemistr y: Sodium 136, potassium 4.6, chloride 2, bicarbonate 30, BUN is 43, creatinine 1.61, glucose 135. Urinalysis was positive on admission which showed Dominique glabrata. Blood culture shows Enterococcus species. MEDICATIONS: 1. V fend 200 b.i.d. 2. Ampicillin as directed. 3. Bactroban b.i.d. 4. Heparin after dialysis. 5. Lipitor 40 4 times daily. 6. Milk of magnesia 30 mL at bedtime. 7. Norvasc 5 mg b.i.d. 8. Vitamin C 500 mg daily. 9. Aspirin 81 mg daily. 10. Silvadene 5 b.i.d. 11. Folic acid 1 mg daily. 12. Tradjenta 5 mg daily. 13. Lopressor 50 b.i.d. 14. Zyprexa 5 mg daily. 15. Colace 100 daily. 16. Hydralazine 25 q. 17. Prevacid 30 mg daily. 18. Depakote 250. 19. Colace 100 q.12h. p.r.n. 20. Tylenol p.r.n. 21. Zofran p.r.n. 22. Robitussin p.r.n. 23. Ativan. 24. Zofran p.r.n. ASSESSMENT AND PLAN: An 83-year-old unfortunate [place] female with vascular dementia, diabetes khadar litus, end-stage renal disease, malnutrition. G-tube feeding, recurrent hospitalizations for bactere gamaliel, fungemia, urinary tract infection. Overall, very sick. 1. Respiratory. Stable. Continue O2 support as needed. 2. Cardiovascular. Vitals are stable. Continue above antihypertensives. Continue heparin with dial ysis. 3. Gastrointestinal. Status post transfusion. Epogen with dialysis. H and H remain stable. GI is following. Continue proton pump inhibitor. 4. End-stage renal disease. Plan for dialysis today. 5. Dysphagia. G-tube feeding at 30 mL an hour. Aspiration precaution. Head elevation in place. 6. Anxiety. Continue all psych meds. May deescalate meds or reduce if she remains lethargic. 7. Infectious disease. Status post line replacement. Remains on antifungal and antibiotics with am picillin. White count improved to XII and patient is now afebrile. White count improved and continu es to be afebrile and cultures are negative. Plan for discharge back to intermediate facility soon. We will follow. Dictated By: DYLON HULL/MADAN Conf#: [id number] DID#: [id number]
--- NOTE | 2019-02-25 13:51 | CONS ---
Assessment/Plan Assessment/Plan Hospital Course (Demo Recall) All noted no acute events. Patient is sleeping, looks comfortable, no fevers WBC 12.4 H&H 8.3 and 26.5 platelets 297 neutrophils 75.1 Antimicrobials: Vfend, IV ampicillin Indwelling: Left subclavian permacath, PEG Microbiology: Urine culture on admission grew Dominique glabrata blood culture growing Enterococcus Chest x-ray on admission revealed no definite evidence of pneumonia or CHF Physical examination: This is a chronically ill-appearing wasted elderly woman who is in no distress. Head atraumatic normocephalic. Neck is supple. Chest rise symmetrical breath sounds clear, diminished bases. Heart: S1-S2. Abdomen soft bowel sounds present. Extremities without cyanosis edema. Assessment: 1. Sepsis, present on admission 2. Recurrent UTI 3. Bacteremia, rule out infected line 4. End-stage renal disease, hemodialysis dependent 5. Anemia 6. 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 Plan: Stable, no vegetations per ECHO, repeat blood cultures from hemodialysis catheter negative, patient is status post new permacath changed over wire yesterday, continue on current antibiotics, will keep on ampicillin for 2 weeks Consultation Date/Type/Reason Admit Date/Time Feb 19, 2019 at 01:01 Initial Consult Date Type of Consult id Requesting Provider: JILLIAN HOLLAND MD Date/Time of Note DATE: 02/25/19 TIME: 13:50 Exam/Review of Systems Exam Vitals Vital Signs Date Temp Pulse Resp B/P (MAP) Pulse Ox O2 O2 Flow FiO2 Time Delivery Rate 02/25/19 80 12:11 02/25/19 97.6 18 128/63 95 10:00 (84) 02/25/19 Room Air 06:39 Intake and Output 02/24/19 02/24/19 02/25/19 1515:00 23:00 07:00 IntakeIntake Total 50 ml 380 ml 100 ml BalanceBalance 50 ml 380 ml 100 ml Results Result Diagram: 02/25/19 0514 02/25/19 0514 Results 24hrs Laboratory Tests Test 02/25/19 05:14 White Blood Count 12.4 H Red Blood Count 2.98 L Hemoglobin 8.3 L Hematocrit 26.5 L Mean Corpuscular Volume 88.9 Mean Corpuscular Hemoglobin 27.9 L Mean Corpuscular Hemoglobin Concent 31.3 L Red Cell Distribution Width 16.5 H Platelet Count 297 Mean Platelet Volume 10.9 H Immature Granulocytes % 3.100 H Neutrophils % 75.1 Lymphocytes % 10.0 L Monocytes % 9.3 Eosinophils % 2.0 Basophils % 0.5 Nucleated Red Blood Cells % 1.2 H Immature Granulocytes # 0.380 H Neutrophils # 9.3 H Lymphocytes # 1.2 Monocytes # 1.2 H Eosinophils # 0.3 Basophils # 0.1 Nucleated Red Blood Cells # 0.2 H Sodium Level 136 Potassium Level 4.6 Chloride Level 102 Carbon Dioxide Level 30 Anion Gap 4 L Blood Urea Nitrogen 43 #H Creatinine 1.64 H Est Glomerular Filtrat Rate mL/min Glucose Level 135 Calcium Level 8.7 Phosphorus Level 2.5 Magnesium Level 2.4 Medications Medication Current Medications IV Flush (NS 3 ml) 3 ml PER PROTOCOL IV ; Start 02/19/19 at 03:30 Lorazepam (Ativan) 0.5 mg Q8H PRN GTB .ANXIETY Last administered on 02/21/19 09:06; Admin Dose 0.5 MG; Start 02/19/19 at 03:30 Ondansetron HCl (Zofran Inj) 4 mg Q6H PRN IV NAUSEA/VOMITING; Start 02/19/19 at 03:30 Acetaminophen (Tylenol Tab) 325 mg Q4H PRN GTB FOR FEVER 100AND ABOVE Last administered on 02/20/19 20:13; Admin Dose 325 MG; Start 02/19/19 at 03:30 Acetaminophen (Tylenol Tab) 650 mg Q6H PRN GTB PAIN LEVEL 1-10/10 Last administered on 02/19/19 21:49; Admin Dose 650 MG; Start 02/19/19 at 03:30 Amlodipine Besylate (Norvasc) 5 mg BID GTB Last administered on 02/25/19 10:41; Admin Dose 5 MG; Start 02/19/19 at 09:00 Ascorbic Acid (Vitamin C) 500 mg DAILY GTB Last administered on 02/25/19 10:40; Admin Dose 500 MG; Start 02/19/19 at 09:00 Aspirin (Aspirin) 81 mg DAILY GTB Last administered on 02/25/19 10:39; Admin Dose 81 MG; Start 02/19/19 at 09:00 Atorvastatin Calcium (Lipitor) 40 mg QHS GTB Last administered on 02/24/19 21:05; Admin Dose 40 MG; Start 02/19/19 at 21:00 Ferrous Sulfate (Ferrous Sulfate (Ec)) 325 mg BID PO Last administered on 02/25/19 10:39; Admin Dose 325 MG; Start 02/19/19 at 09:00 Folic Acid (Folic Acid) 1 mg DAILY GTB Last administered on 02/25/19 10:40; Admin Dose 1 MG; Start 02/19/19 at 09:00 Guaifenesin/ Dextromethorphan (Robitussin Dm Liquid Cup) 5 ml Q4H GTB Last administered on 02/25/19 13:24; Admin Dose 5 ML; Start 02/19/19 at 03:30 Hydralazine HCl (Apresoline) 25 mg Q8 GTB Last administered on 02/25/19 13:25; Admin Dose 25 MG; Start 02/19/19 at 06:00 Lansoprazole (Prevacid) 30 mg DAILY@0600 GTB Last administered on 02/25/19 05:11; Admin Dose 30 MG; Start 02/19/19 at 06:00 Linagliptin (Tradjenta) 5 mg DAILY GTB Last administered on 02/25/19 10:38; Admin Dose 5 MG; Start 02/19/19 at 09:00 Lorazepam (Ativan) 0.5 mg HS PRN GTB ANXIETY Last administered on 02/23/19 21:29; Admin Dose 0.5 MG; Start 02/19/19 at 03:30 Magnesium Hydroxide (Milk Of Mag) 30 ml QHS GTB Last administered on 02/24/19 21:04; Admin Dose 30 ML; Start 02/19/19 at 21:00 Metoprolol Tartrate (Lopressor) 50 mg BID GTB Last administered on 02/25/19 10:41; Admin Dose 50 MG; Start 02/19/19 at 09:00 Olanzapine (Zyprexa) 5 mg DAILY GTB Last administered on 02/25/19 10:40; Admin Dose 5 MG; Start 02/19/19 at 09:00 Ondansetron HCl (Zofran Tab) 4 mg Q4H PRN GTB NAUSEA AND/OR VOMITING; Start 02/19/19 at 03:30 Valproate Sodium (Depakene Liquid Cup) 250 mg Q8 GTB Last administered on 02/25/19 13:24; Admin Dose 250 MG; Start 02/19/19 at 06:00 Docusate Sodium (Colace Liquid Cup) 100 mg DAILY GTB Last administered on 02/25/19 10:37; Admin Dose 100 MG; Start 02/19/19 at 09:00 Docusate Sodium (Colace Liquid Cup) 100 mg Q12H PRN GTB CONSTIPATION; Start 02/19/19 at 04:00 Acetaminophen (Tylenol Tab) 650 mg Q6H PRN GTB .PAIN 1-3 OR TEMP Last administered on 02/19/19 11:57; Admin Dose 650 MG; Start 02/19/19 at 03:35 Heparin Sodium (Porcine) (Heparin (1000 Units/ml)) 4,000 unit AFTER DIALYSIS CATHETER Last administered on 02/21/19 20:48; Admin Dose 4,000 UNIT; Start 02/20/19 at 16:00 Mupirocin (Bactroban) 1 applic BID TOP Last administered on 02/25/19 10:43; Admin Dose 1 APPLIC; Start 02/22/19 at 14:00 Ampicillin 50 ml @ 100 mls/hr Q8 IVPB Last administered on 02/25/19 13:25; Admin Dose 100 MLS/HR; Start 02/24/19 at 14:00 Voriconazole (Vfend) 200 mg BID PO Last administered on 02/25/19 10:37; Admin Dose 200 MG; Start 02/24/19 at 21:00 PHYLICIA HOLCOMB NP Feb 25, 2019 13:51
[2019-02-25] MEDS: MAGNESIUM HYDROXIDE 30ML CUP GTB SCH (21:44)
[2019-02-25] MEDS: ATORVASTATIN 40 MG TAB GTB SCH (21:45)
[2019-02-25] MEDS: LORAZEPAM 0.5 MG TAB GTB PRN (22:54)
[2019-02-26] VITALS (15 sets, daily range): BP systolic 105–129; BP diastolic 53–81; PULSE 80–90; RESP 16–19
[2019-02-26] MEDS: GUAIFENESIN/DM 5ML CUP GTB SCH ×6 (04:00→21:51)
[2019-02-26] MEDS: VALPROIC ACID LIQUID CUP 250 MG/5 ML CUP GTB SCH ×3 (06:05→21:51)
[2019-02-26] MEDS: AMPICILLIN 1 GM/NS (PMX) 50 ML IVPB SCH ×3 (06:05→21:50)
[2019-02-26] MEDS: LANSOPRAZOLE 30 MG CAP GTB SCH (06:06)
[2019-02-26] MEDS: METOPROLOL 50 MG TAB GTB SCH ×2 (10:18→20:25)
[2019-02-26] MEDS: AMLODIPINE 5 MG TAB GTB SCH ×2 (10:18→20:25)
[2019-02-26] MEDS: FERROUS SULFATE (EC) 325 MG TAB PO SCH ×2 (10:20→20:26)
[2019-02-26] MEDS: ASPIRIN 81 MG TAB GTB SCH (10:20)
[2019-02-26] MEDS: ASCORBIC ACID 500 MG TAB GTB SCH (10:20)
[2019-02-26] MEDS: OLANZAPINE 5 MG TAB GTB SCH (10:20)
[2019-02-26] MEDS: FOLIC ACID 1 MG TAB GTB SCH (10:20)
[2019-02-26] MEDS: DOCUSATE SODIUM 10 MG/ML (10ML CUP) GTB SCH (10:21)
[2019-02-26] MEDS: VORICONAZOLE 200 MG TAB PO SCH ×2 (10:22→20:25)
[2019-02-26] MEDS: MUPIROCIN 2% 22 GM OINT TOP SCH ×2 (10:24→20:27)
[2019-02-26] MEDS: LINAGLIPTIN 5 MG TABLET GTB SCH (10:56)
--- NOTE | 2019-02-26 13:59 | CONS ---
[facility] HCIS Consult Follow-up Patient Name: Zahira White Unit Number: [id number] Date of : 1935 Patient Status: Admitted Inpatient Attending Doctor: Kemar Perez MD Edit: JOSE RAUL ANDREWS MD on 02/26/19 @ 17:50 BLEEDING PERMCATHH SITE SURGICELL BLOOD _ Assessment/Plan Assessment/Plan Hospital Course (Demo Recall) 1. Fevers, likely secondary to urinary tract infection, now bld cx positive gram + Entercoccus 2. End-stage renal disease on hemodialysis. 3. Urinary tract infection. 4. Hypertension. 5. Dementia. 6. Diabetes mellitus type II. 7. Diastolic heart failure. 8. Moderate protein energy malnutrition with cachexia. 9. Osteoarthritis. 10. GT status 11. Anemia of chronic disease Assessment/Plan (Daily) -blood cultures are negative -start Epogen - status post Permacath exchange -Ampicillin and voriconazole per ID - HD MWF , - renally dose all meds Consultation Date/Type/Reason Admit Date/Time Feb 19, 2019 at 01:01 Initial Consult Date 02/19/2019 Type of Consult nephrology Requesting Provider: JILLIAN HOLLAND MD Date/Time of Note DATE: 02/26/19 TIME: 13:56 24 HR Interval Summary Free Text/Dictation not coherent Exam/Review of Systems Exam Vitals Vital Signs Date Temp Pulse Resp B/P (MAP) Pulse Ox O2 O2 Flow FiO2 Time Delivery Rate 02/26/19 89 12:25 02/26/19 97.7 18 110/54 96 11:46 (72) 02/25/19 Room Air 19:07 Intake and Output 02/25/19 02/25/19 02/26/19 1515:00 23:00 07:00 IntakeIntake Total 1010 ml OutputOutput Total 1400 ml BalanceBalance -390 ml Exam left chest Permcath Constitutional: alert, frail ENMT: nl external ears & nose Neck: supple Respiratory: diminished breath sounds Cardiovascular: regular rate and rhythm Gastrointestinal: soft, other (GT) Musculoskeletal: muscle weakness Results Result Diagram: 02/26/19 0553 02/26/19 0553 Results 24hrs Laboratory Tests Test 02/26/19 05:53 02/26/19 10:55 White Blood Count 13.0 H Red Blood Count 2.52 L Hemoglobin 6.9 *L Hematocrit 22.0 L Mean Corpuscular Volume 87.3 Mean Corpuscular Hemoglobin 27.4 L Mean Corpuscular Hemoglobin Concent 31.4 L Red Cell Distribution Width 16.8 H Platelet Count 260 Mean Platelet Volume 10.8 H Immature Granulocytes % 2.200 H Neutrophils % 78.8 H Segmented Neutrophils % (Manual) 79 H Band Neutrophils % (Manual) 2 Lymphocytes % 7.9 L Lymphocytes % (Manual) 11 L Monocytes % 9.6 Monocytes % (Manual) 6 Eosinophils % 1.3 Basophils % 0.2 Basophils % (Manual) 2 Nucleated Red Blood Cells % 4 H Immature Granulocytes # 0.280 H Neutrophils # 10.2 H Neutrophils # (Manual) 10.3 H Band Neutrophils # 0.2 Lymphocytes (Manual) 1.4 Lymphocytes # 1.0 Monocytes # 1.2 H Monocytes # (Manual) 0.7 Eosinophils # 0.2 Basophils # 0.0 Basophils # (Manual) 0.2 H Nucleated Red Blood Cells # 0.2 H Pathologist Review (Hematology) YES Platelet Estimate NORMAL Polychromasia 3+ Hypochromasia 1+ Poikilocytosis 1+ Basophilic Stippling 1+ Anisocytosis 2+ Ovalocytes 1+ Sodium Level 135 Potassium Level 4.0 Chloride Level 97 Carbon Dioxide Level 32 H Anion Gap 6 Blood Urea Nitrogen 25 #H Creatinine 1.08 H Est Glomerular Filtrat Rate mL/min Glucose Level 145 Calcium Level 8.0 L Phosphorus Level 2.4 L Magnesium Level 2.0 Bedside Glucose 212 Medications Medication Current Medications IV Flush (NS 3 ml) 3 ml PER PROTOCOL IV ; Start 02/19/19 at 03:30 Lorazepam (Ativan) 0.5 mg Q8H PRN GTB .ANXIETY Last administered on 02/21/19at 09:06; Admin Dose 0.5 MG; Start 02/19/19 at 03:30 Ondansetron HCl (Zofran Inj) 4 mg Q6H PRN IV NAUSEA/VOMITING; Start 02/19/19 at 03:30 Acetaminophen (Tylenol Tab) 325 mg Q4H PRN GTB FOR FEVER 100AND ABOVE Last administered on 02/20/19 20:13; Admin Dose 325 MG; Start 02/19/19 at 03:30 Acetaminophen (Tylenol Tab) 650 mg Q6H PRN GTB PAIN LEVEL 1-10/10 Last administered on 02/19/19 21:49; Admin Dose 650 MG; Start 02/19/19 at 03:30 Amlodipine Besylate (Norvasc) 5 mg BID GTB Last administered on 02/25/19 21:45; Admin Dose 5 MG; Start 02/19/19 at 09:00 Ascorbic Acid (Vitamin C) 500 mg DAILY GTB Last administered on 02/26/19 10:20; Admin Dose 500 MG; Start 02/19/19 at 09:00 Aspirin (Aspirin) 81 mg DAILY GTB Last administered on 02/26/19 10:20; Admin Dose 81 MG; Start 02/19/19 at 09:00 Atorvastatin Calcium (Lipitor) 40 mg QHS GTB Last administered on 02/25/19 21:45; Admin Dose 40 MG; Start 02/19/19 at 21:00 Ferrous Sulfate (Ferrous Sulfate (Ec)) 325 mg BID PO Last administered on 02/26/19 10:20; Admin Dose 325 MG; Start 02/19/19 at 09:00 Folic Acid (Folic Acid) 1 mg DAILY GTB Last administered on 02/26/19 10:20; Admin Dose 1 MG; Start 02/19/19 at 09:00 Guaifenesin/ Dextromethorphan (Robitussin Dm Liquid Cup) 5 ml Q4H GTB Last administered on 02/26/19 10:56; Admin Dose 5 ML; Start 02/19/19 at 03:30 Hydralazine HCl (Apresoline) 25 mg Q8 GTB Last administered on 02/26/19 06:06; Admin Dose 25 MG; Start 02/19/19 at 06:00 Lansoprazole (Prevacid) 30 mg DAILY@0600 GTB Last administered on 02/26/19 06:06; Admin Dose 30 MG; Start 02/19/19 at 06:00 Linagliptin (Tradjenta) 5 mg DAILY GTB Last administered on 02/26/19 10:56; Admin Dose 5 MG; Start 02/19/19 at 09:00 Lorazepam (Ativan) 0.5 mg HS PRN GTB ANXIETY Last administered on 02/25/19 22:54; Admin Dose 0.5 MG; Start 02/19/19 at 03:30 Magnesium Hydroxide (Milk Of Mag) 30 ml QHS GTB Last administered on 02/25/19 21:44; Admin Dose 30 ML; Start 02/19/19 at 21:00 Metoprolol Tartrate (Lopressor) 50 mg BID GTB Last administered on 02/25/19 22:00; Admin Dose 50 MG; Start 02/19/19 at 09:00 Olanzapine (Zyprexa) 5 mg DAILY GTB Last administered on 02/26/19 10:20; Admin Dose 5 MG; Start 02/19/19 at 09:00 Ondansetron HCl (Zofran Tab) 4 mg Q4H PRN GTB NAUSEA AND/OR VOMITING; Start 02/19/19 at 03:30 Valproate Sodium (Depakene Liquid Cup) 250 mg Q8 GTB Last administered on 02/26/19 13:52; Admin Dose 250 MG; Start 02/19/19 at 06:00 Docusate Sodium (Colace Liquid Cup) 100 mg DAILY GTB Last administered on 02/26/19 10:21; Admin Dose 100 MG; Start 02/19/19 at 09:00 Docusate Sodium (Colace Liquid Cup) 100 mg Q12H PRN GTB CONSTIPATION; Start 02/19/19 at 04:00 Acetaminophen (Tylenol Tab) 650 mg Q6H PRN GTB .PAIN 1-3 OR TEMP Last administered on 02/19/19 11:57; Admin Dose 650 MG; Start 02/19/19 at 03:35 Heparin Sodium (Porcine) (Heparin (1000 Units/ml)) 4,000 unit AFTER DIALYSIS CATHETER Last administered on 02/21/19 20:48; Admin Dose 4,000 UNIT; Start 02/20/19 at 16:00 Mupirocin (Bactroban) 1 applic BID TOP Last administered on 02/26/19 10:24; Admin Dose 1 APPLIC; Start 02/22/19 at 14:00 Ampicillin 50 ml @ 100 mls/hr Q8 IVPB Last administered on 02/26/19at 13:52; Admin Dose 100 MLS/HR; Start 02/24/19 at 14:00 Voriconazole (Vfend) 200 mg BID PO Last administered on 02/26/19at 10:22; Admin Dose 200 MG; Start 02/24/19 at 21:00 Insulin Glargine (Lantus) 4 units DAILY@2000 SC ; Start 02/26/19 at 20:00 FLAVIO CLAYTON Feb 26, 2019 13:59
--- NOTE | 2019-02-26 17:34 | CONS ---
Consultation Date/Type/Reason Admit Date/Time Feb 19, 2019 at 01:01 Initial Consult Date SUBJECTIVE: Patient is sleeping, looks comfortable, no fevers. VS: stable T: 97.6 LABS: Reviewed. WBC-13.0 and low H&H requiring blood transfusion today. Antimicrobials: Vfend, IV ampicillin Indwelling: Left subclavian permacath, PEG Microbiology: Urine culture on admission grew Dominique glabrata. Blood culture growing Enterococcus ==Repeat blood cultures from hemodialysis catheter negative CXR: 02/26/19 IMPRESSION: 1. Left internal jugular dialysis catheter with tip in the right atrium and no pneumothorax 2. Mild cardiogenic pulmonary venous hypertension 3. Mild cardiomegaly and atherosclerotic vascular diseas 2D ECHO: no vegetations per ECHO Physical examination: GEN: This is a chronically ill-appearing wasted elderly woman, who is in no distress. HENT: Head atraumatic normocephalic. Neck is supple. PULM: Chest rise symmetrical breath sounds clear, diminished bases. Heart: S1-S2. Abdomen soft bowel sounds present. Extremities without cyanosis edema. Assessment: 1. Sepsis, present on admission 2. Recurrent UTI 3. Bacteremia, rule out infected line 4. End-stage renal disease, hemodialysis dependent 5. Anemia 6. 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 CXR noted. Blood transfusion today 2 units. Continue current antbx. S/P new permacath. Will keep on ampicillin for 2 weeks. Requesting Provider: JILLIAN HOLLAND MD Date/Time of Note DATE: 02/26/19 TIME: 17:29 Exam/Review of Systems Exam Vitals Vital Signs Date Temp Pulse Resp B/P (MAP) Pulse Ox O2 O2 Flow FiO2 Time Delivery Rate 02/26/19 84 16:26 02/26/19 97.6 19 105/57 96 13:00 (73) 02/25/19 Room Air 19:07 Intake and Output 02/25/19 02/25/19 02/26/19 1515:00 23:00 07:00 IntakeIntake Total 1010 ml OutputOutput Total 1400 ml BalanceBalance -390 ml Results Result Diagram: 02/26/19 0553 02/26/19 0553 Results 24hrs Laboratory Tests Test 02/26/19 05:53 02/26/19 10:55 White Blood Count 13.0 H Red Blood Count 2.52 L Hemoglobin 6.9 *L Hematocrit 22.0 L Mean Corpuscular Volume 87.3 Mean Corpuscular Hemoglobin 27.4 L Mean Corpuscular Hemoglobin Concent 31.4 L Red Cell Distribution Width 16.8 H Platelet Count 260 Mean Platelet Volume 10.8 H Immature Granulocytes % 2.200 H Neutrophils % 78.8 H Segmented Neutrophils % (Manual) 79 H Band Neutrophils % (Manual) 2 Lymphocytes % 7.9 L Lymphocytes % (Manual) 11 L Monocytes % 9.6 Monocytes % (Manual) 6 Eosinophils % 1.3 Basophils % 0.2 Basophils % (Manual) 2 Nucleated Red Blood Cells % 4 H Immature Granulocytes # 0.280 H Neutrophils # 10.2 H Neutrophils # (Manual) 10.3 H Band Neutrophils # 0.2 Lymphocytes (Manual) 1.4 Lymphocytes # 1.0 Monocytes # 1.2 H Monocytes # (Manual) 0.7 Eosinophils # 0.2 Basophils # 0.0 Basophils # (Manual) 0.2 H Nucleated Red Blood Cells # 0.2 H Pathologist Review (Hematology) YES Platelet Estimate NORMAL Polychromasia 3+ Hypochromasia 1+ Poikilocytosis 1+ Basophilic Stippling 1+ Anisocytosis 2+ Ovalocytes 1+ Sodium Level 135 Potassium Level 4.0 Chloride Level 97 Carbon Dioxide Level 32 H Anion Gap 6 Blood Urea Nitrogen 25 #H Creatinine 1.08 H Est Glomerular Filtrat Rate mL/min Glucose Level 145 Calcium Level 8.0 L Phosphorus Level 2.4 L Magnesium Level 2.0 Bedside Glucose 212 Medications Medication Current Medications IV Flush (NS 3 ml) 3 ml PER PROTOCOL IV ; Start 02/19/19 at 03:30 Lorazepam (Ativan) 0.5 mg Q8H PRN GTB .ANXIETY Last administered on 02/21/19at 09:06; Admin Dose 0.5 MG; Start 02/19/19 at 03:30 Ondansetron HCl (Zofran Inj) 4 mg Q6H PRN IV NAUSEA/VOMITING; Start 02/19/19 at 03:30 Acetaminophen (Tylenol Tab) 325 mg Q4H PRN GTB FOR FEVER 100AND ABOVE Last administered on 02/20/19at 20:13; Admin Dose 325 MG; Start 02/19/19 at 03:30 Acetaminophen (Tylenol Tab) 650 mg Q6H PRN GTB PAIN LEVEL 1-10/10 Last administered on 02/19/19 21:49; Admin Dose 650 MG; Start 02/19/19 at 03:30 Amlodipine Besylate (Norvasc) 5 mg BID GTB Last administered on 02/25/19 21:45; Admin Dose 5 MG; Start 02/19/19 at 09:00 Ascorbic Acid (Vitamin C) 500 mg DAILY GTB Last administered on 02/26/19 10:20; Admin Dose 500 MG; Start 02/19/19 at 09:00 Aspirin (Aspirin) 81 mg DAILY GTB Last administered on 02/26/19 10:20; Admin Dose 81 MG; Start 02/19/19 at 09:00; Status Hold Atorvastatin Calcium (Lipitor) 40 mg QHS GTB Last administered on 02/25/19 21:45; Admin Dose 40 MG; Start 02/19/19 at 21:00 Ferrous Sulfate (Ferrous Sulfate (Ec)) 325 mg BID PO Last administered on 02/26/19 10:20; Admin Dose 325 MG; Start 02/19/19 at 09:00 Folic Acid (Folic Acid) 1 mg DAILY GTB Last administered on 02/26/19 10:20; Admin Dose 1 MG; Start 02/19/19 at 09:00 Guaifenesin/ Dextromethorphan (Robitussin Dm Liquid Cup) 5 ml Q4H GTB Last administered on 02/26/19 10:56; Admin Dose 5 ML; Start 02/19/19 at 03:30 Hydralazine HCl (Apresoline) 25 mg Q8 GTB Last administered on 02/26/19 06:06; Admin Dose 25 MG; Start 02/19/19 at 06:00 Lansoprazole (Prevacid) 30 mg DAILY@0600 GTB Last administered on 02/26/19 06:06; Admin Dose 30 MG; Start 02/19/19 at 06:00 Linagliptin (Tradjenta) 5 mg DAILY GTB Last administered on 02/26/19 10:56; Admin Dose 5 MG; Start 02/19/19 at 09:00 Lorazepam (Ativan) 0.5 mg HS PRN GTB ANXIETY Last administered on 02/25/19 22:54; Admin Dose 0.5 MG; Start 02/19/19 at 03:30 Magnesium Hydroxide (Milk Of Mag) 30 ml QHS GTB Last administered on 02/25/19 21:44; Admin Dose 30 ML; Start 02/19/19 at 21:00 Metoprolol Tartrate (Lopressor) 50 mg BID GTB Last administered on 02/25/19 22:00; Admin Dose 50 MG; Start 02/19/19 at 09:00 Olanzapine (Zyprexa) 5 mg DAILY GTB Last administered on 02/26/19 10:20; Admin Dose 5 MG; Start 02/19/19 at 09:00 Ondansetron HCl (Zofran Tab) 4 mg Q4H PRN GTB NAUSEA AND/OR VOMITING; Start 02/19/19 at 03:30 Valproate Sodium (Depakene Liquid Cup) 250 mg Q8 GTB Last administered on 02/26/19 13:52; Admin Dose 250 MG; Start 02/19/19 at 06:00 Docusate Sodium (Colace Liquid Cup) 100 mg DAILY GTB Last administered on 02/26/19 10:21; Admin Dose 100 MG; Start 02/19/19 at 09:00 Docusate Sodium (Colace Liquid Cup) 100 mg Q12H PRN GTB CONSTIPATION; Start 02/19/19 at 04:00 Acetaminophen (Tylenol Tab) 650 mg Q6H PRN GTB .PAIN 1-3 OR TEMP Last administered on 02/19/19 11:57; Admin Dose 650 MG; Start 02/19/19 at 03:35 Heparin Sodium (Porcine) (Heparin (1000 Units/ml)) 4,000 unit AFTER DIALYSIS CATHETER Last administered on 02/21/19 20:48; Admin Dose 4,000 UNIT; Start 02/20/19 at 16:00 Mupirocin (Bactroban) 1 applic BID TOP Last administered on 02/26/19 10:24; Admin Dose 1 APPLIC; Start 02/22/19 at 14:00 Ampicillin 50 ml @ 100 mls/hr Q8 IVPB Last administered on 02/26/19 13:52; Admin Dose 100 MLS/HR; Start 02/24/19 at 14:00 Voriconazole (Vfend) 200 mg BID PO Last administered on 02/26/19 10:22; Admin Dose 200 MG; Start 02/24/19 at 21:00 Insulin Glargine (Lantus) 4 units DAILY@2000 SC ; Start 02/26/19 at 20:00 Epoetin Michael-epbx (Retacrit (Esrd)) 4,000 unit MoWeFr@1700 SC ; Start 02/28/19 at 17:00 SCOTT SHEEHAN Feb 26, 2019 17:33
[2019-02-26] MEDS: ATORVASTATIN 40 MG TAB GTB SCH (20:26)
[2019-02-26] MEDS: MAGNESIUM HYDROXIDE 30ML CUP GTB SCH (20:26)
[2019-02-26] MEDS: INSULIN GLARGINE [LANTus] (100 UNITS/ML) SYG SC SCH (21:24)
[2019-02-26] MEDS: LORAZEPAM 0.5 MG TAB GTB PRN (21:51)
[2019-02-27] VITALS (17 sets, daily range): BP systolic 118–148; BP diastolic 56–87; PULSE 80–95; RESP 16–18
[2019-02-27] MEDS: GUAIFENESIN/DM 5ML CUP GTB SCH ×6 (03:43→23:30)
[2019-02-27] MEDS: LANSOPRAZOLE 30 MG CAP GTB SCH (05:49)
[2019-02-27] MEDS: VALPROIC ACID LIQUID CUP 250 MG/5 ML CUP GTB SCH ×3 (05:49→21:42)
[2019-02-27] MEDS: AMPICILLIN 1 GM/NS (PMX) 50 ML IVPB SCH ×3 (06:42→21:42)
[2019-02-27] MEDS: LINAGLIPTIN 5 MG TABLET GTB SCH (08:12)
[2019-02-27] MEDS: FOLIC ACID 1 MG TAB GTB SCH (08:12)
[2019-02-27] MEDS: DOCUSATE SODIUM 10 MG/ML (10ML CUP) GTB SCH (08:12)
[2019-02-27] MEDS: METOPROLOL 50 MG TAB GTB SCH ×2 (08:13→20:51)
[2019-02-27] MEDS: AMLODIPINE 5 MG TAB GTB SCH ×2 (08:13→20:50)
[2019-02-27] MEDS: ASCORBIC ACID 500 MG TAB GTB SCH (08:14)
[2019-02-27] MEDS: VORICONAZOLE 200 MG TAB PO SCH ×2 (08:14→20:49)
[2019-02-27] MEDS: OLANZAPINE 5 MG TAB GTB SCH (08:14)
[2019-02-27] MEDS: FERROUS SULFATE (EC) 325 MG TAB PO SCH ×2 (08:14→20:49)
[2019-02-27] MEDS: MUPIROCIN 2% 22 GM OINT TOP SCH ×2 (08:15→20:51)
--- NOTE | 2019-02-27 09:44 | CONS ---
Assessment/Plan Assessment/Plan Hospital Course (Demo Recall) 1. Fevers, likely secondary to urinary tract infection, now bld cx positive gram + Entercoccus 2. End-stage renal disease on hemodialysis. 3. Urinary tract infection. 4. Hypertension. 5. Dementia. 6. Diabetes mellitus type II. 7. Diastolic heart failure. 8. Moderate protein energy malnutrition with cachexia. 9. Osteoarthritis. 10. GT status 11. Anemia of chronic disease Assessment/Plan (Daily) -pt had bleeding fro Permcath site was given blood transfusion -c/w Epogen - status post Permacath exchange -Ampicillin and voriconazole per ID - HD MWF , - renally dose all meds Consultation Date/Type/Reason Admit Date/Time Feb 19, 2019 at 01:01 Initial Consult Date 02/19/2019 Type of Consult nephrology Requesting Provider: JILLIAN HOLLAND MD Date/Time of Note DATE: 02/27/19 TIME: 09:42 Exam/Review of Systems Exam Vitals Vital Signs Date Temp Pulse Resp B/P (MAP) Pulse Ox O2 O2 Flow FiO2 Time Delivery Rate 02/27/19 98.3 94 17 138/62 95 08:06 (87) 02/25/19 Room Air 19:07 Intake and Output 02/26/19 02/26/19 02/27/19 1515:00 23:00 07:00 IntakeIntake Total 710 ml 660 ml 460 ml BalanceBalance 710 ml 660 ml 460 ml Exam chest Permcath no bleeding today Constitutional: alert, frail Head: normocephalic Neck: supple Respiratory: diminished breath sounds Gastrointestinal: soft, other (GT ) Results Result Diagram: 02/27/1952302/27/19523 Results 24hrs Laboratory Tests Test 02/26/19 10:55 02/26/19 19:31 02/27/19 05:24 02/27/19 08:10 Bedside Glucose 212 158 White Blood Count 11.3 H 11.4 H Red Blood Count 2.89 L 2.77 L Hemoglobin 8.2 L 7.9 L Hematocrit 25.1 L 23.9 L Mean Corpuscular 86.9 86.3 Volume Mean Corpuscular 28.4 L 28.5 L Hemoglobin Mean Corpuscular 32.7 33.1 Hemoglobin Concent Red Cell 15.7 H 16.0 H Distribution Width Platelet Count 204 # 238 Mean Platelet Volume 10.3 11.3 H Immature 2.400 H 2.500 H Granulocytes % Neutrophils % 76.5 76.1 Lymphocytes % 8.1 L 8.8 L Monocytes % 10.9 10.3 Eosinophils % 1.7 1.8 Basophils % 0.4 0.5 Nucleated Red Blood 1.3 H 1.4 H Cells % Immature 0.270 H 0.280 H Granulocytes # Neutrophils # 8.7 H 8.7 H Lymphocytes # 0.9 1.0 Monocytes # 1.2 H 1.2 H Eosinophils # 0.2 0.2 Basophils # 0.0 0.1 Nucleated Red Blood 0.2 H 0.2 H Cells # Sodium Level 134 L Potassium Level 4.0 Chloride Level 97 Carbon Dioxide Level 31 Anion Gap 6 Blood Urea Nitrogen 51 H Creatinine 1.75 H Est Glomerular Filtrat Rate mL/min Glucose Level 122 Calcium Level 8.4 Phosphorus Level 3.2 Magnesium Level 2.5 Medications Medication Current Medications IV Flush (NS 3 ml) 3 ml PER PROTOCOL IV ; Start 02/19/19 at 03:30 Lorazepam (Ativan) 0.5 mg Q8H PRN GTB .ANXIETY Last administered on 02/21/19at 09:06; Admin Dose 0.5 MG; Start 02/19/19 at 03:30 Ondansetron HCl (Zofran Inj) 4 mg Q6H PRN IV NAUSEA/VOMITING; Start 02/19/19 at 03:30 Acetaminophen (Tylenol Tab) 325 mg Q4H PRN GTB FOR FEVER 100AND ABOVE Last administered on 02/20/19at 20:13; Admin Dose 325 MG; Start 02/19/19 at 03:30 Acetaminophen (Tylenol Tab) 650 mg Q6H PRN GTB PAIN LEVEL 1-10/10 Last administered on 02/19/19at 21:49; Admin Dose 650 MG; Start 02/19/19 at 03:30 Amlodipine Besylate (Norvasc) 5 mg BID GTB Last administered on 02/27/19at 08:13; Admin Dose 5 MG; Start 02/19/19 at 09:00 Ascorbic Acid (Vitamin C) 500 mg DAILY GTB Last administered on 02/27/19at 08:14; Admin Dose 500 MG; Start 02/19/19 at 09:00 Aspirin (Aspirin) 81 mg DAILY GTB Last administered on 02/26/19 10:20; Admin Dose 81 MG; Start 02/19/19 at 09:00; Status Hold Atorvastatin Calcium (Lipitor) 40 mg QHS GTB Last administered on 02/26/19 20:26; Admin Dose 40 MG; Start 02/19/19 at 21:00 Ferrous Sulfate (Ferrous Sulfate (Ec)) 325 mg BID PO Last administered on 02/27/19 08:14; Admin Dose 325 MG; Start 02/19/19 at 09:00 Folic Acid (Folic Acid) 1 mg DAILY GTB Last administered on 02/27/19 08:12; Admin Dose 1 MG; Start 02/19/19 at 09:00 Guaifenesin/ Dextromethorphan (Robitussin Dm Liquid Cup) 5 ml Q4H GTB Last administered on 02/27/19 08:12; Admin Dose 5 ML; Start 02/19/19 at 03:30 Hydralazine HCl (Apresoline) 25 mg Q8 GTB Last administered on 02/27/19 05:49; Admin Dose 25 MG; Start 02/19/19 at 06:00 Lansoprazole (Prevacid) 30 mg DAILY@0600 GTB Last administered on 02/27/19 05:49; Admin Dose 30 MG; Start 02/19/19 at 06:00 Linagliptin (Tradjenta) 5 mg DAILY GTB Last administered on 02/27/19 08:12; Admin Dose 5 MG; Start 02/19/19 at 09:00 Lorazepam (Ativan) 0.5 mg HS PRN GTB ANXIETY Last administered on 02/26/19 21:51; Admin Dose 0.5 MG; Start 02/19/19 at 03:30 Magnesium Hydroxide (Milk Of Mag) 30 ml QHS GTB Last administered on 02/26/19 20:26; Admin Dose 30 ML; Start 02/19/19 at 21:00 Metoprolol Tartrate (Lopressor) 50 mg BID GTB Last administered on 02/27/19 08:13; Admin Dose 50 MG; Start 02/19/19 at 09:00 Olanzapine (Zyprexa) 5 mg DAILY GTB Last administered on 02/27/19 08:14; Admin Dose 5 MG; Start 02/19/19 at 09:00 Ondansetron HCl (Zofran Tab) 4 mg Q4H PRN GTB NAUSEA AND/OR VOMITING; Start 02/19/19 at 03:30 Valproate Sodium (Depakene Liquid Cup) 250 mg Q8 GTB Last administered on 02/27/19 05:49; Admin Dose 250 MG; Start 02/19/19 at 06:00 Docusate Sodium (Colace Liquid Cup) 100 mg DAILY GTB Last administered on 02/27/19 08:12; Admin Dose 100 MG; Start 02/19/19 at 09:00 Docusate Sodium (Colace Liquid Cup) 100 mg Q12H PRN GTB CONSTIPATION; Start 02/19/19 at 04:00 Acetaminophen (Tylenol Tab) 650 mg Q6H PRN GTB .PAIN 1-3 OR TEMP Last administered on 02/19/19 11:57; Admin Dose 650 MG; Start 02/19/19 at 03:35 Heparin Sodium (Porcine) (Heparin (1000 Units/ml)) 4,000 unit AFTER DIALYSIS CATHETER Last administered on 02/21/19 20:48; Admin Dose 4,000 UNIT; Start 02/20/19 at 16:00 Mupirocin (Bactroban) 1 applic BID TOP Last administered on 02/27/19 08:15; Admin Dose 1 APPLIC; Start 02/22/19 at 14:00 Ampicillin 50 ml @ 100 mls/hr Q8 IVPB Last administered on 02/27/19 06:42; Admin Dose 100 MLS/HR; Start 02/24/19 at 14:00 Voriconazole (Vfend) 200 mg BID PO Last administered on 02/27/19 08:14; Admin Dose 200 MG; Start 02/24/19 at 21:00 Insulin Glargine (Lantus) 4 units DAILY@2000 SC Last administered on 02/26/19 21:24; Admin Dose 4 UNITS; Start 02/26/19 at 20:00 Epoetin Michael-epbx (Retacrit (Esrd)) 4,000 unit MoWeFr@1700 SC ; Start 02/28/19 at 17:00 FLAVIO CLAYTON Feb 27, 2019 09:44
--- NOTE | 2019-02-27 14:50 | PN ---
DATE: 02/27/2019 SUBJECTIVE: The patient was seen, sleeping. Daughter is at bedside. Case was discussed. Noted hem oglobin of 7.9. We will continue to monitor. May consider transfusion tomorrow with dialysis. PHYSICAL EXAMINATION: VITAL SIGNS: Temperature 98.2, pulse 80, respirations 17, blood pressure 127/81, saturation 94%. GENERAL: In no acute distress. The patient is sleeping. CARDIOVASCULAR: S1, S2. Left upper IJ PermCath with no evidence of bleeding. ABDOMEN: Soft. G-tube in place. EXTREMITIES: No clubbing, cyanosis or edema. LABORATORY DATA: White count 11.4, hemoglobin 7.9, hematocrit 24, platelet count 238 with normal dif ferential. Chemistry: Sodium 134, potassium 4.0, chloride 97, bicarbonate 31, BUN 51, creatinine 1. 75, glucose 122. MEDICATIONS: 1. Continue Epogen. 2. Lantus 4 units daily. 3. Vfend 200 b.i.d. 4. Ampicillin as directed. 5. Bactroban. 6. Heparin. 7. Lipitor. 8. Milk of Magnesia. 9. Norvasc. 10. Vitamin C. 11. Ferrous sulfate. 12. Folic acid. 12. Tradjenta. 13. Lopressor. 14. Zyprexa. 15. Colace. 16. Hydralazine. 17. Prevacid. 18. Depakote. 19. Colace. 20. Tylenol. 21. Zofran. ASSESSMENT AND PLAN: This is an 83-year-old unfortunate [place] female with history of vascular dem entia, diabetes mellitus, end-stage renal disease, malnutrition, G-tube feeding, recurrent hospitaliz ation, bacteremia, fungemia, urinary tract infection, overall very sick. 1. Respiratory: Stable. O2 support as needed. 2. Cardiovascular: Vitals are stable as well, on heparin for deep venous thrombosis prophylaxis whi le doing dialysis. 3. Gastrointestinal: Now off aspirin. Continue Protonix. 4. Anemia, partly due to blood loss from her recent PermCath placement and exchange. Transfuse p.r. n. 5. End-stage renal disease. Plan for dialysis tomorrow. Consider transfusion if H and H is low agustin orrow. 6. Dysphagia, tolerating feedings well at 30 mL an hour. 7. Anxiety, on antipsychotics. May need to deescalate due to increased lethargy. 8. Infectious disease, on the above treatment plan. White count remains at 11, afebrile. Continue to follow. Repeated blood cultures are negative. Case was discussed with daughter at bedside regarding plan of care. We will follow. Dictated By: DYLON HULL/MADAN Conf#: [id number] DID#: [id number] CC: JOSE RAUL ANDREWS;*End*
--- NOTE | 2019-02-27 16:50 | CONS ---
Consultation Date/Type/Reason Admit Date/Time Feb 19, 2019 at 01:01 Initial Consult Date SUBJECTIVE: Patient is sleeping, looks comfortable, no fevers. VS: stable T: 97.6 LABS: Reviewed. WBC-13.0 and low H&H requiring blood transfusion today. Antimicrobials: Vfend, IV ampicillin Indwelling: Left subclavian permacath, PEG Microbiology: Urine culture on admission grew Dominique glabrata. Blood culture growing Enterococcus ==Repeat blood cultures from hemodialysis catheter negative 02/23/19: BLOOD CULTURE Preliminary NO GROWTH AFTER 4 DAYS CXR: 02/26/19 IMPRESSION: 1. Left internal jugular dialysis catheter with tip in the right atrium and no pneumothorax 2. Mild cardiogenic pulmonary venous hypertension 3. Mild cardiomegaly and atherosclerotic vascular diseas 2D ECHO: no vegetations per ECHO Physical examination: GEN: This is a chronically ill-appearing wasted elderly woman, who is in no distress. HENT: Head atraumatic normocephalic. Neck is supple. PULM: Chest rise symmetrical breath sounds clear, diminished bases. Heart: S1-S2. Abdomen soft bowel sounds present. Extremities without cyanosis edema. Assessment: 1. Sepsis, present on admission 2. Recurrent UTI 3. Bacteremia, rule out infected line 4. End-stage renal disease, hemodialysis dependent 5. Anemia 6. 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 CXR noted. Continue current antbx. S/P new permacath. Will keep on ampicillin for 2 weeks. Requesting Provider: JILLIAN HOLLAND MD Date/Time of Note DATE: 02/27/19 TIME: 16:49 Exam/Review of Systems Exam Vitals Vital Signs Date Temp Pulse Resp B/P (MAP) Pulse Ox O2 O2 Flow FiO2 Time Delivery Rate 02/27/19 97.8 84 17 136/60 97 16:43 (85) 02/25/19 Room Air 19:07 Intake and Output 02/26/19 02/26/19 02/27/19 1515:00 23:00 07:00 IntakeIntake Total 710 ml 660 ml 460 ml BalanceBalance 710 ml 660 ml 460 ml Results Result Diagram: 02/27/1924 02/27/19 0524 Results 24hrs Laboratory Tests Test 02/26/19 19:31 02/27/19 05:24 02/27/19 08:10 White Blood Count 11.3 H 11.4 H Red Blood Count 2.89 L 2.77 L Hemoglobin 8.2 L 7.9 L Hematocrit 25.1 L 23.9 L Mean Corpuscular Volume 86.9 86.3 Mean Corpuscular Hemoglobin 28.4 L 28.5 L Mean Corpuscular Hemoglobin Concent 32.7 33.1 Red Cell Distribution Width 15.7 H 16.0 H Platelet Count 204 # 238 Mean Platelet Volume 10.3 11.3 H Immature Granulocytes % 2.400 H 2.500 H Neutrophils % 76.5 76.1 Lymphocytes % 8.1 L 8.8 L Monocytes % 10.9 10.3 Eosinophils % 1.7 1.8 Basophils % 0.4 0.5 Nucleated Red Blood Cells % 1.3 H 1.4 H Immature Granulocytes # 0.270 H 0.280 H Neutrophils # 8.7 H 8.7 H Lymphocytes # 0.9 1.0 Monocytes # 1.2 H 1.2 H Eosinophils # 0.2 0.2 Basophils # 0.0 0.1 Nucleated Red Blood Cells # 0.2 H 0.2 H Sodium Level 134 L Potassium Level 4.0 Chloride Level 97 Carbon Dioxide Level 31 Anion Gap 6 Blood Urea Nitrogen 51 H Creatinine 1.75 H Est Glomerular Filtrat Rate mL/min Glucose Level 122 Calcium Level 8.4 Phosphorus Level 3.2 Magnesium Level 2.5 Bedside Glucose 158 Medications Medication Current Medications IV Flush (NS 3 ml) 3 ml PER PROTOCOL IV ; Start 02/19/19 at 03:30 Lorazepam (Ativan) 0.5 mg Q8H PRN GTB .ANXIETY Last administered on 02/21/19at 09:06; Admin Dose 0.5 MG; Start 02/19/19 at 03:30 Ondansetron HCl (Zofran Inj) 4 mg Q6H PRN IV NAUSEA/VOMITING; Start 02/19/19 at 03:30 Acetaminophen (Tylenol Tab) 325 mg Q4H PRN GTB FOR FEVER 100AND ABOVE Last administered on 02/20/19at 20:13; Admin Dose 325 MG; Start 02/19/19 at 03:30 Acetaminophen (Tylenol Tab) 650 mg Q6H PRN GTB PAIN LEVEL 1-10/10 Last admini stered on 02/19/19at 21:49; Admin Dose 650 MG; Start 02/19/19 at 03:30 Amlodipine Besylate (Norvasc) 5 mg BID GTB Last administered on 02/27/19 08:13; Admin Dose 5 MG; Start 02/19/19 at 09:00 Ascorbic Acid (Vitamin C) 500 mg DAILY GTB Last administered on 02/27/19 08:14; Admin Dose 500 MG; Start 02/19/19 at 09:00 Aspirin (Aspirin) 81 mg DAILY GTB Last administered on 02/26/19 10:20; Admin Dose 81 MG; Start 02/19/19 at 09:00; Status Hold Atorvastatin Calcium (Lipitor) 40 mg QHS GTB Last administered on 02/26/19 20:26; Admin Dose 40 MG; Start 02/19/19 at 21:00 Ferrous Sulfate (Ferrous Sulfate (Ec)) 325 mg BID PO Last administered on 02/27/19 08:14; Admin Dose 325 MG; Start 02/19/19 at 09:00 Folic Acid (Folic Acid) 1 mg DAILY GTB Last administered on 02/27/19 08:12; Admin Dose 1 MG; Start 02/19/19 at 09:00 Guaifenesin/ Dextromethorphan (Robitussin Dm Liquid Cup) 5 ml Q4H GTB Last administered on 02/27/19 14:50; Admin Dose 5 ML; Start 02/19/19 at 03:30 Hydralazine HCl (Apresoline) 25 mg Q8 GTB Last administered on 02/27/19 14:50; Admin Dose 25 MG; Start 02/19/19 at 06:00 Lansoprazole (Prevacid) 30 mg DAILY@0600 GTB Last administered on 02/27/19 05:49; Admin Dose 30 MG; Start 02/19/19 at 06:00 Linagliptin (Tradjenta) 5 mg DAILY GTB Last administered on 02/27/19 08:12; Admin Dose 5 MG; Start 02/19/19 at 09:00 Lorazepam (Ativan) 0.5 mg HS PRN GTB ANXIETY Last administered on 02/26/19 21:51; Admin Dose 0.5 MG; Start 02/19/19 at 03:30 Magnesium Hydroxide (Milk Of Mag) 30 ml QHS GTB Last administered on 02/26/19 20:26; Admin Dose 30 ML; Start 02/19/19 at 21:00 Metoprolol Tartrate (Lopressor) 50 mg BID GTB Last administered on 02/27/19 08:13; Admin Dose 50 MG; Start 02/19/19 at 09:00 Olanzapine (Zyprexa) 5 mg DAILY GTB Last administered on 02/27/19 08:14; Admin Dose 5 MG; Start 02/19/19 at 09:00 Ondansetron HCl (Zofran Tab) 4 mg Q4H PRN GTB NAUSEA AND/OR VOMITING; Start 02/19/19 at 03:30 Valproate Sodium (Depakene Liquid Cup) 250 mg Q8 GTB Last administered on 02/27/19 14:50; Admin Dose 250 MG; Start 02/19/19 at 06:00 Docusate Sodium (Colace Liquid Cup) 100 mg DAILY GTB Last administered on 02/27/19 08:12; Admin Dose 100 MG; Start 02/19/19 at 09:00 Docusate Sodium (Colace Liquid Cup) 100 mg Q12H PRN GTB CONSTIPATION; Start 02/19/19 at 04:00 Acetaminophen (Tylenol Tab) 650 mg Q6H PRN GTB .PAIN 1-3 OR TEMP Last administered on 02/19/19 11:57; Admin Dose 650 MG; Start 02/19/19 at 03:35 Heparin Sodium (Porcine) (Heparin (1000 Units/ml)) 4,000 unit AFTER DIALYSIS CATHETER Last administered on 02/21/19 20:48; Admin Dose 4,000 UNIT; Start 02/20/19 at 16:00 Mupirocin (Bactroban) 1 applic BID TOP Last administered on 02/27/19 08:15; Admin Dose 1 APPLIC; Start 02/22/19 at 14:00 Ampicillin 50 ml @ 100 mls/hr Q8 IVPB Last administered on 02/27/19 14:51; Admin Dose 100 MLS/HR; Start 02/24/19 at 14:00 Voriconazole (Vfend) 200 mg BID PO Last administered on 02/27/19 08:14; Admin Dose 200 MG; Start 02/24/19 at 21:00 Insulin Glargine (Lantus) 4 units DAILY@2000 SC Last administered on 02/26/19at 21:24; Admin Dose 4 UNITS; Start 02/26/19 at 20:00 Epoetin Michael-epbx (Retacrit (Esrd)) 4,000 unit MoWeFr@1700 SC ; Start 02/28/19 a t 17:00 SCOTT SHEEHAN Feb 27, 2019 16:50
[2019-02-27] MEDS: INSULIN GLARGINE [LANTus] (100 UNITS/ML) SYG SC SCH (20:01)
[2019-02-27] MEDS: MAGNESIUM HYDROXIDE 30ML CUP GTB SCH (20:49)
[2019-02-27] MEDS: ATORVASTATIN 40 MG TAB GTB SCH (20:49)
[2019-02-27] MEDS: LORAZEPAM 0.5 MG TAB GTB PRN (21:43)
[2019-02-28] VITALS (30 sets, daily range): BP systolic 115–146; BP diastolic 50–67; PULSE 80–99; RESP 16–18
[2019-02-28] MEDS: GUAIFENESIN/DM 5ML CUP GTB SCH ×6 (03:08→23:44)
[2019-02-28] MEDS: LORAZEPAM 0.5 MG TAB GTB PRN ×2 (03:08→21:43)
[2019-02-28] MEDS: AMPICILLIN 1 GM/NS (PMX) 50 ML IVPB SCH ×3 (05:32→21:44)
[2019-02-28] MEDS: VALPROIC ACID LIQUID CUP 250 MG/5 ML CUP GTB SCH ×3 (05:32→21:44)
[2019-02-28] MEDS: LANSOPRAZOLE 30 MG CAP GTB SCH ×2 (05:33→17:33)
--- NOTE | 2019-02-28 07:12 | PN ---
DATE: 02/26/2019 SUBJECTIVE: The patient was noted to have bleeding through the left IJ Perm-A-Cath, pressure dressin g was applied and hemoglobin did drop to 6.9. I requested a transfusion and repeat H and H. The pat ient otherwise currently resting comfortably at bedside, status post dialysis yesterday. PHYSICAL EXAMINATION: VITAL SIGNS: Temperature 97.7, pulse 89, respiration 18, blood pressure 110/54, saturation 96%. GENERAL: Patient is in no acute distress, resting off oxygen. CARDIOVASCULAR: S1, S2. Left IJ is in a special banding. LUNGS: Clear. ABDOMEN: Soft. G-tube in place. EXTREMITIES: No clubbing, cyanosis, or edema. Patient overall cachectic. LABORATORY DATA: White count 13, hemoglobin 6.0, hematocrit 22, platelets , lymphocytes 8%, ban ds of 2%. Chemistry: Sodium 135, potassium 4.0, chloride 107, bicarbonate 32, BUN 25, creatinine 1. 08, glucose 145, so his last glucose level is 212. Blood cultures on 02/23/2019 is now negative. Bl ood cultures on 02/21/2019 shows Enterococcus species sensitive to vancomycin, ampicillin, and penic illin. Patient's urine culture on admission did show Dominique glabrata. MEDICATIONS: Reviewed: 1. Vfend 200 b.i.d. 2. Ampicillin IV q.8h. 3. Bactroban b.i.d. 4. Heparin 4000 with dialysis. 5. Lipitor 40 mg at bedtime. 6. Milk of magnesia 30 mL at bedtime. 7. Norvasc 100 b.i.d. 8. Vitamin C 500 mg daily. 9. Aspirin 81 mg daily, 10. b.i.d. 11. Folic acid 1 mg daily. 12. Tradjenta 5 mg daily. 13. Metoprolol titrate 50 b.i.d. 14. Zyprexa 5 mg daily. 15. Cortisone 1 daily. 16. Hydralazine 25 q.8h. 17. Citalopram 10 mg daily. 18. Depakote 250. 19. Colace 100 q.12h 20. Tylenol p.r.n. 21. Zofran p.r.n. 22. Robitussin p.r.n. ASSESSMENT AND PLAN: This is an 83-year-old unfortunate [place] female with vascular dementia, diab etes mellitus, end-stage renal disease, malnutrition. G-tube feeding, recurrent hospitalizations for bacteremia, line sepsis, fungemia UTI. Overall, unfortunately very sick. 1. Respiratory. Continue O2 support as needed. Follow up chest x-ray ordered by ID. 2. Cardiovascular: Stable. Continue above meds. 3. Anemia, probably due to blood loss from hemodialysis line. Transfusion will be given. Monitor H and H, pressure support, pressure vascular surgery is aware. 4. End-stage renal disease, dialysis every Thursday, Thursday, Thursday. No evidence of fluid overload state. Monitor electrolytes. 5. Dysphagia. Continue NG tube feeding at 30 mL an hour. Continue aspiration precautions, head timothy vation. 6. Anxiety, may stop some of his psych meds due to increased lethargy in the last 1 to 2 days. 7. Diabetes mellitus. Continue above medications including Tradjenta. Consider low dose Levemir. Overall, prognosis is guarded due to recurrent hospitalizations, poor quality of life and overa ll multiple medical issues. The patient is DNR. We will follow. Dictated By: DYLON HULL/MADAN Conf#: [id number] DID#: [id number]
--- NOTE | 2019-02-28 07:48 | CONS ---
Assessment/Plan Assessment/Plan Hospital Course (Demo Recall) 83 yo female presented with severe anemia Interval hx: Tolerating tube feeds. No signs of GI bleeding 1. Severe anemia,acute on chronic -GI bleed vs chronic disease -stable -no signs of GI bleeding noted per RN -retic 2.6, ferritin [id number] 2. End-stage renal disease on dialysis. 3. Urinary tract infection. -positive yeast 4. Dysphagia, status post percutaneous endoscopic gastrostomy tube placement. 5. Hypertension. 6. Behavioral disorder. PLAN: Continue with PPI Aspiration precautions, continue tube feeds at 30cc/hr Continue Iron supplementation Monitor HH and for GI bleeding Pt examined and plan of care discussed with Dr. Baird. Consultation Date/Type/Reason Admit Date/Time Feb 19, 2019 at 01:01 Initial Consult Date Requesting Provider: JILLIAN HOLLAND MD Date/Time of Note DATE: 02/28/19 TIME: 07:46 Exam/Review of Systems Exam Vitals Vital Signs Date Temp Pulse Resp B/P (MAP) Pulse Ox O2 O2 Flow FiO2 Time Delivery Rate 02/28/19 98.8 80 18 116/55 95 04:00 (75) 02/25/19 Room Air 19:07 Intake and Output 02/27/19 02/27/19 02/28/19 1515:00 23:00 07:00 IntakeIntake Total 460 ml BalanceBalance 460 ml Results Result Diagram: 02/28/19 0535 02/28/19 0535 Results 24hrs Laboratory Tests Test 02/27/19 08:10 02/28/19 05:35 Bedside Glucose 158 White Blood Count 12.6 H Red Blood Count 2.69 L Hemoglobin 7.6 L Hematocrit 23.3 L Mean Corpuscular Volume 86.6 Mean Corpuscular Hemoglobin 28.3 L Mean Corpuscular Hemoglobin Concent 32.6 Red Cell Distribution Width 16.4 H Platelet Count 239 Mean Platelet Volume 10.8 H Immature Granulocytes % 2.400 H Neutrophils % 77.3 H Lymphocytes % 7.9 L Monocytes % 10.0 Eosinophils % 2.2 Basophils % 0.2 Nucleated Red Blood Cells % 1.0 H Immature Granulocytes # 0.300 H Neutrophils # 9.7 H Lymphocytes # 1.0 Monocytes # 1.3 H Eosinophils # 0.3 Basophils # 0.0 Nucleated Red Blood Cells # 0.1 H Sodium Level 132 L Potassium Level 4.2 Chloride Level 95 L Carbon Dioxide Level 30 Anion Gap 7 Blood Urea Nitrogen 68 H Creatinine 2.15 H Est Glomerular Filtrat Rate mL/min Glucose Level 125 Calcium Level 8.4 Phosphorus Level 3.6 Magnesium Level 3.0 H Medications Medication Current Medications IV Flush (NS 3 ml) 3 ml PER PROTOCOL IV ; Start 02/19/19 at 03:30 Lorazepam (Ativan) 0.5 mg Q8H PRN GTB .ANXIETY Last administered on 02/28/19 03:08; Admin Dose 0.5 MG; Start 02/19/19 at 03:30 Ondansetron HCl (Zofran Inj) 4 mg Q6H PRN IV NAUSEA/VOMITING; Start 02/19/19 at 03:30 Acetaminophen (Tylenol Tab) 325 mg Q4H PRN GTB FOR FEVER 100AND ABOVE Last administered on 02/20/19 20:13; Admin Dose 325 MG; Start 02/19/19 at 03:30 Acetaminophen (Tylenol Tab) 650 mg Q6H PRN GTB PAIN LEVEL 1-10/10 Last administered on 02/19/19 21:49; Admin Dose 650 MG; Start 02/19/19 at 03:30 Amlodipine Besylate (Norvasc) 5 mg BID GTB Last administered on 02/27/19 20:50; Admin Dose 5 MG; Start 02/19/19 at 09:00 Ascorbic Acid (Vitamin C) 500 mg DAILY GTB Last administered on 02/27/19 08:14; Admin Dose 500 MG; Start 02/19/19 at 09:00 Aspirin (Aspirin) 81 mg DAILY GTB Last administered on 02/26/19 10:20; Admin Dose 81 MG; Start 02/19/19 at 09:00; Status Hold Atorvastatin Calcium (Lipitor) 40 mg QHS GTB Last administered on 02/27/19 20:49; Admin Dose 40 MG; Start 02/19/19 at 21:00 Ferrous Sulfate (Ferrous Sulfate (Ec)) 325 mg BID PO Last administered on 02/27/19 20:49; Admin Dose 325 MG; Start 02/19/19 at 09:00 Folic Acid (Folic Acid) 1 mg DAILY GTB Last administered on 02/27/19 08:12; Admin Dose 1 MG; Start 02/19/19 at 09:00 Guaifenesin/ Dextromethorphan (Robitussin Dm Liquid Cup) 5 ml Q4H GTB Last administered on 02/28/19 03:08; Admin Dose 5 ML; Start 02/19/19 at 03:30 Hydralazine HCl (Apresoline) 25 mg Q8 GTB Last administered on 02/28/19 05:33; Admin Dose 25 MG; Start 02/19/19 at 06:00 Lansoprazole (Prevacid) 30 mg DAILY@0600 GTB Last administered on 02/28/19 05:33; Admin Dose 30 MG; Start 02/19/19 at 06:00 Linagliptin (Tradjenta) 5 mg DAILY GTB Last administered on 02/27/19 08:12; Admin Dose 5 MG; Start 02/19/19 at 09:00 Lorazepam (Ativan) 0.5 mg HS PRN GTB ANXIETY Last administered on 02/27/19 21:43; Admin Dose 0.5 MG; Start 02/19/19 at 03:30 Magnesium Hydroxide (Milk Of Mag) 30 ml QHS GTB Last administered on 02/27/19 20:49; Admin Dose 30 ML; Start 02/19/19 at 21:00 Metoprolol Tartrate (Lopressor) 50 mg BID GTB Last administered on 02/27/19 20:51; Admin Dose 50 MG; Start 02/19/19 at 09:00 Olanzapine (Zyprexa) 5 mg DAILY GTB Last administered on 02/27/19 08:14; Admin Dose 5 MG; Start 02/19/19 at 09:00 Ondansetron HCl (Zofran Tab) 4 mg Q4H PRN GTB NAUSEA AND/OR VOMITING; Start 02/19/19 at 03:30 Valproate Sodium (Depakene Liquid Cup) 250 mg Q8 GTB Last administered on 02/28/19 05:32; Admin Dose 250 MG; Start 02/19/19 at 06:00 Docusate Sodium (Colace Liquid Cup) 100 mg DAILY GTB Last administered on 02/27/19 08:12; Admin Dose 100 MG; Start 02/19/19 at 09:00 Docusate Sodium (Colace Liquid Cup) 100 mg Q12H PRN GTB CONSTIPATION; Start 02/19/19 at 04:00 Acetaminophen (Tylenol Tab) 650 mg Q6H PRN GTB .PAIN 1-3 OR TEMP Last administered on 02/19/19 11:57; Admin Dose 650 MG; Start 02/19/19 at 03:35 Heparin Sodium (Porcine) (Heparin (1000 Units/ml)) 4,000 unit AFTER DIALYSIS CATHETER Last administered on 02/21/19 20:48; Admin Dose 4,000 UNIT; Start 02/20/19 at 16:00 Mupirocin (Bactroban) 1 applic BID TOP Last administered on 02/27/19 20:51; Admin Dose 1 APPLIC; Start 02/22/19 at 14:00 Ampicillin 50 ml @ 100 mls/hr Q8 IVPB Last administered on 02/28/19 05:32; Admin Dose 100 MLS/HR; Start 02/24/19 at 14:00 Voriconazole (Vfend) 200 mg BID PO Last administered on 02/27/19 20:49; Admin Dose 200 MG; Start 02/24/19 at 21:00 Insulin Glargine (Lantus) 4 units DAILY@2000 SC Last administered on 02/27/19 20:01; Admin Dose 4 UNITS; Start 02/26/19 at 20:00 Epoetin Michael-epbx (Retacrit (Esrd)) 4,000 unit MoWeFr@1700 SC ; Start 02/28/19 at 17:00 Pantoprazole (Protonix Iv) 40 mg BID@06,18 IV ; Start 02/28/19 at 18:00; Status TONY MARTINES Feb 28, 2019 07:48
[2019-02-28] MEDS: FOLIC ACID 1 MG TAB GTB SCH (08:41)
[2019-02-28] MEDS: VORICONAZOLE 200 MG TAB PO SCH ×2 (08:41→20:53)
[2019-02-28] MEDS: ASCORBIC ACID 500 MG TAB GTB SCH (08:41)
[2019-02-28] MEDS: OLANZAPINE 5 MG TAB GTB SCH (08:42)
[2019-02-28] MEDS: LINAGLIPTIN 5 MG TABLET GTB SCH (08:42)
[2019-02-28] MEDS: FERROUS SULFATE (EC) 325 MG TAB PO SCH ×2 (08:42→20:52)
[2019-02-28] MEDS: MUPIROCIN 2% 22 GM OINT TOP SCH ×2 (08:43→20:52)
[2019-02-28] MEDS: AMLODIPINE 5 MG TAB GTB SCH ×2 (08:43→20:53)
[2019-02-28] MEDS: METOPROLOL 50 MG TAB GTB SCH ×2 (08:43→20:53)
[2019-02-28] MEDS: DOCUSATE SODIUM 10 MG/ML (10ML CUP) GTB SCH (08:50)
--- NOTE | 2019-02-28 12:52 | PN ---
DATE: 02/28/2019 The patient was seen. We will transfuse her 1 unit of PRBC due to drop in hemoglobin from 7.9 to 7.6 , as the patient questionable has black stools. SUBJECTIVE: The patient is seen by GI. Stool occult blood was sent, and now she is on Protonix b.i. d. dosing and she is off aspirin. PHYSICAL EXAMINATION: VITAL SIGNS: Temperature 97.3, pulse 87, respirations 17, blood pressure 145/56, saturation 97%. GENERAL: The patient is lying in bed comfortably. Currently being dialyzed. CARDIOVASCULAR: S1, S2, regular rate. LUNGS: Clear. Left upper IJ line in place. No active bleeding. ABDOMEN: Soft. G-tube in place. EXTREMITIES: No clubbing, no cyanosis. Patient with severe muscle atrophy. LABORATORY DATA: White count 12.6, hemoglobin 7.2, hematocrit 23, platelets of 239/77, percent sat 8 %. Chemistry: Sodium 132, potassium 4.2, chloride 95, bicarbonate 30, BUN is 68, creatinine 2.15, g lucose 125. Patient's repeat blood culture on 02/23/2019 is negative. MEDICATIONS: Reviewed: 1. Protonix 40 IV twice a day. 2. Epogen as directed. 3. Lantus 4 units daily. 4. Vfend 200 b.i.d. 5. Ampicillin IV q.8h. Dose per pharmacy. 6. Bactroban b.i.d. 7. Lipitor 40 mg at bedtime. 8. Milk of magnesia 4 times daily. 8. Norvasc 5 mg b.i.d. 9. Vitamin C 500 daily. 10. Zoloft 25 daily. 11. Folic acid daily. 12. Tradjenta 5 mg daily. 13. Metoprolol titrate 50 b.i.d. 14. Zyprexa 5 mg daily. 15. Colace 100 daily. 16. Hydralazine 25 q.8h. 17. Prevacid 30 mg daily. We will change to b.i.d. and discontinue Protonix. 18. Depakote 250 q.8h. 19. Colace 100 p.r.n. 20. Tylenol p.r.n. 21. Ativan p.r.n. 22. Zofran p.r.n. 23. Robitussin p.r.n. ASSESSMENT AND PLAN: This is an 83-year-old unfortunate [place] female with history of vascular dem entia, diabetes mellitus and surgical edema. The patient to continue current hospitalization for marta teremia, fungemia, urinary tract infection. Overall very sick. 1. Respiratory. Stable. O2 support as needed. 2. Cardiovascular. Continue above blood pressure meds, overall controlled, off aspirin due to a gas trointestinal bleed. 3. Gastrointestinal. Continue Prevacid to b.i.d. dosing. 4. Anemia. Transfuse 1 to 2 PRBC. No evidence of active bleeding. We will follow. 5. End-stage renal disease, started on dialysis. Dialysis is currently being done. Monitor electro lytes. 6. Dysphagia. Continue G-tube feeding at 30 mL an hour. 7. Anxiety, but slightly more lethargic. Will reduce dose of Zyprexa to 2.5 mg daily. 8. Infectious disease. Remains on antibiotics, bacteremia to continue for 2 weeks. DISPOSITION: Soon back to nursing home facility. Dictated By: DYLON HULL/MADAN Conf#: [id number] DID#: [id number]
--- NOTE | 2019-02-28 14:30 | CONS ---
Assessment/Plan Assessment/Plan Hospital Course (Demo Recall) Sleeping, looks comfortable, no fevers Antimicrobials: Vfend, IV ampicillin Indwelling: Left subclavian permacath, PEG Microbiology: Urine culture on admission grew Dominique glabrata blood culture growing Enterococcus Chest x-ray on admission revealed no definite evidence of pneumonia or CHF Physical examination: This is a chronically ill-appearing wasted elderly woman who is in no distress. Head atraumatic normocephalic. Neck is supple. Chest rise symmetrical breath sounds clear, diminished bases. Heart: S1-S2. Abdomen soft bowel sounds present. Extremities without cyanosis edema. Assessment: 1. Sepsis, present on admission 2. Recurrent UTI 3. Bacteremia, rule out infected line 4. End-stage renal disease, hemodialysis dependent 5. Anemia 6. 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 Plan: Stable, no vegetations per ECHO, repeat blood cultures from hemodialysis catheter negative, patient is status post new permacath changed over wire, continue on current antibiotics to completer 2 weeks Consultation Date/Type/Reason Admit Date/Time Feb 19, 2019 at 01:01 Initial Consult Date Type of Consult id Requesting Provider: JILLIAN HOLLNAD MD Date/Time of Note DATE: 02/28/19 TIME: 14:29 Exam/Review of Systems Exam Vitals Vital Signs Date Temp Pulse Resp B/P (MAP) Pulse Ox O2 O2 Flow FiO2 Time Delivery Rate 02/28/19 87 17 145/56 97 Room Air 12:16 (85) 02/28/19 97.3 12:07 Intake and Output 02/27/19 02/27/19 02/28/19 1515:00 23:00 07:00 IntakeIntake Total 460 ml BalanceBalance 460 ml Results Result Diagram: 02/28/19 0535 02/28/19 0535 Results 24hrs Laboratory Tests Test 02/28/19 05:32 02/28/19 05:35 02/28/19 08:40 Hepatitis B Surface Antigen NEGATIVE White Blood Count 12.6 H Red Blood Count 2.69 L Hemoglobin 7.6 L Hematocrit 23.3 L Mean Corpuscular Volume 86.6 Mean Corpuscular Hemoglobin 28.3 L Mean Corpuscular Hemoglobin Concent 32.6 Red Cell Distribution Width 16.4 H Platelet Count 239 Mean Platelet Volume 10.8 H Immature Granulocytes % 2.400 H Neutrophils % 77.3 H Lymphocytes % 7.9 L Monocytes % 10.0 Eosinophils % 2.2 Basophils % 0.2 Nucleated Red Blood Cells % 1.0 H Immature Granulocytes # 0.300 H Neutrophils # 9.7 H Lymphocytes # 1.0 Monocytes # 1.3 H Eosinophils # 0.3 Basophils # 0.0 Nucleated Red Blood Cells # 0.1 H Sodium Level 132 L Potassium Level 4.2 Chloride Level 95 L Carbon Dioxide Level 30 Anion Gap 7 Blood Urea Nitrogen 68 H Creatinine 2.15 H Est Glomerular Filtrat Rate mL/min Glucose Level 125 Calcium Level 8.4 Phosphorus Level 3.6 Magnesium Level 3.0 H Bedside Glucose 154 Medications Medication Current Medications IV Flush (NS 3 ml) 3 ml PER PROTOCOL IV ; Start 02/19/19 at 03:30 Lorazepam (Ativan) 0.5 mg Q8H PRN GTB .ANXIETY Last administered on 02/28/19 03:08; Admin Dose 0.5 MG; Start 02/19/19 at 03:30 Ondansetron HCl (Zofran Inj) 4 mg Q6H PRN IV NAUSEA/VOMITING; Start 02/19/19 at 03:30 Acetaminophen (Tylenol Tab) 325 mg Q4H PRN GTB FOR FEVER 100AND ABOVE Last administered on 02/20/19 20:13; Admin Dose 325 MG; Start 02/19/19 at 03:30 Acetaminophen (Tylenol Tab) 650 mg Q6H PRN GTB PAIN LEVEL 1-10/10 Last administered on 02/19/19 21:49; Admin Dose 650 MG; Start 02/19/19 at 03:30 Amlodipine Besylate (Norvasc) 5 mg BID GTB Last administered on 02/27/19 20:50; Admin Dose 5 MG; Start 02/19/19 at 09:00 Ascorbic Acid (Vitamin C) 500 mg DAILY GTB Last administered on 02/28/19 08:41; Admin Dose 500 MG; Start 02/19/19 at 09:00 Aspirin (Aspirin) 81 mg DAILY GTB Last administered on 02/26/19 10:20; Admin Dose 81 MG; Start 02/19/19 at 09:00; Status Hold Atorvastatin Calcium (Lipitor) 40 mg QHS GTB Last administered on 02/27/19at 2 0:49; Admin Dose 40 MG; Start 02/19/19 at 21:00 Ferrous Sulfate (Ferrous Sulfate (Ec)) 325 mg BID PO Last administered on 02/28/19 08:42; Admin Dose 325 MG; Start 02/19/19 at 09:00 Folic Acid (Folic Acid) 1 mg DAILY GTB Last administered on 02/28/19 08:41; Admin Dose 1 MG; Start 02/19/19 at 09:00 Guaifenesin/ Dextromethorphan (Robitussin Dm Liquid Cup) 5 ml Q4H GTB Last administered on 02/28/19 08:40; Admin Dose 5 ML; Start 02/19/19 at 03:30 Hydralazine HCl (Apresoline) 25 mg Q8 GTB Last administered on 02/28/19 05:33; Admin Dose 25 MG; Start 02/19/19 at 06:00 Linagliptin (Tradjenta) 5 mg DAILY GTB Last administered on 02/28/19 08:42; Admin Dose 5 MG; Start 02/19/19 at 09:00 Lorazepam (Ativan) 0.5 mg HS PRN GTB ANXIETY Last administered on 02/27/19 21:43; Admin Dose 0.5 MG; Start 02/19/19 at 03:30 Magnesium Hydroxide (Milk Of Mag) 30 ml QHS GTB Last administered on 02/27/19 20:49; Admin Dose 30 ML; Start 02/19/19 at 21:00 Metoprolol Tartrate (Lopressor) 50 mg BID GTB Last administered on 02/27/19 20:51; Admin Dose 50 MG; Start 02/19/19 at 09:00 Ondansetron HCl (Zofran Tab) 4 mg Q4H PRN GTB NAUSEA AND/OR VOMITING; Start 02/19/19 at 03:30 Valproate Sodium (Depakene Liquid Cup) 250 mg Q8 GTB Last administered on 02/28/19 05:32; Admin Dose 250 MG; Start 02/19/19 at 06:00 Docusate Sodium (Colace Liquid Cup) 100 mg DAILY GTB Last administered on 02/27/19 08:12; Admin Dose 100 MG; Start 02/19/19 at 09:00 Docusate Sodium (Colace Liquid Cup) 100 mg Q12H PRN GTB CONSTIPATION; Start 02/19/19 at 04:00 Acetaminophen (Tylenol Tab) 650 mg Q6H PRN GTB .PAIN 1-3 OR TEMP Last administered on 02/19/19at 11:57; Admin Dose 650 MG; Start 02/19/19 at 03:35 Mupirocin (Bactroban) 1 applic BID TOP Last administered on 02/28/19at 08:43; Admin Dose 1 APPLIC; Start 02/22/19 at 14:00 Ampicillin 50 ml @ 100 mls/hr Q8 IVPB Last administered on 02/28/19at 05:32; Admin Dose 100 MLS/HR; Start 02/24/19 at 14:00 Voriconazole (Vfend) 200 mg BID PO Last administered on 02/28/19at 08:41; Admin Dose 200 MG; Start 02/24/19 at 21:00 Insulin Glargine (Lantus) 4 units DAILY@2000 SC Last administered on 02/27/19at 20:01; Admin Dose 4 UNITS; Start 02/26/19 at 20:00 Epoetin Michael-epbx (Retacrit (Esrd)) 4,000 unit MoWeFr@1700 SC ; Start 02/28/19 at 17:00 Olanzapine (Zyprexa) 2.5 mg DAILY GTB ; Start 03/01/19 at 09:00 Lansoprazole (Prevacid) 30 mg BID@0600,1800 GTB ; Start 02/28/19 at 18:00 PHYLICIA HOLCOMB NP Feb 28, 2019 14:30
--- NOTE | 2019-02-28 14:47 | CONS ---
Assessment/Plan Assessment/Plan Assessment/Plan (Daily) ospital Course (Demo Recall) 1. Fevers, likely secondary to urinary tract infection, now bld cx positive gram + Entercoccus is post permacath exchange 2. End-stage renal disease on hemodialysis. 3. Urinary tract infection. 4. Hypertension. 5. Dementia. 6. Diabetes mellitus type II. 7. Diastolic heart failure. 8. Moderate protein energy malnutrition with cachexia. 9. Osteoarthritis. 10. GT status 11. Anemia of chronic disease Assessment/Plan (Daily) -pt had bleeding fro Permcath site was given blood transfusion -c/w Epogen - status post Permacath exchange -Ampicillin and voriconazole per ID - HD MWF , - renally dose all meds Consultation Date/Type/Reason Admit Date/Time Feb 19, 2019 at 01:01 Initial Consult Date Requesting Provider: JILLIAN HOLLAND MD Date/Time of Note DATE: 02/28/19 TIME: 14:46 24 HR Interval Summary Free Text/Dictation ? Black stools had blood HD today Exam/Review of Systems Exam Vitals Vital Signs Date Temp Pulse Resp B/P (MAP) Pulse Ox O2 O2 Flow FiO2 Time Delivery Rate 02/28/19 87 17 145/56 97 Room Air 12:16 (85) 02/28/19 97.3 12:07 Intake and Output 02/27/19 02/27/19 02/28/19 1515:00 23:00 07:00 IntakeIntake Total 460 ml BalanceBalance 460 ml Exam chest Permcath no bleeding today Constitutional: alert, frail Head: normocephalic Neck: supple Respiratory: diminished breath sounds Gastrointestinal: soft, other (GT ) Results Result Diagram: 02/28/19 0535 02/28/19 0535 Results 24hrs Laboratory Tests Test 02/28/19 05:32 02/28/19 05:35 02/28/19 08:40 Hepatitis B Surface Antigen NEGATIVE White Blood Count 12.6 H Red Blood Count 2.69 L Hemoglobin 7.6 L Hematocrit 23.3 L Mean Corpuscular Volume 86.6 Mean Corpuscular Hemoglobin 28.3 L Mean Corpuscular Hemoglobin Concent 32.6 Red Cell Distribution Width 16.4 H Platelet Count 239 Mean Platelet Volume 10.8 H Immature Granulocytes % 2.400 H Neutrophils % 77.3 H Lymphocytes % 7.9 L Monocytes % 10.0 Eosinophils % 2.2 Basophils % 0.2 Nucleated Red Blood Cells % 1.0 H Immature Granulocytes # 0.300 H Neutrophils # 9.7 H Lymphocytes # 1.0 Monocytes # 1.3 H Eosinophils # 0.3 Basophils # 0.0 Nucleated Red Blood Cells # 0.1 H Sodium Level 132 L Potassium Level 4.2 Chloride Level 95 L Carbon Dioxide Level 30 Anion Gap 7 Blood Urea Nitrogen 68 H Creatinine 2.15 H Est Glomerular Filtrat Rate mL/min Glucose Level 125 Calcium Level 8.4 Phosphorus Level 3.6 Magnesium Level 3.0 H Bedside Glucose 154 Medications Medication Current Medications IV Flush (NS 3 ml) 3 ml PER PROTOCOL IV ; Start 02/19/19 at 03:30 Lorazepam (Ativan) 0.5 mg Q8H PRN GTB .ANXIETY Last administered on 02/28/19 03:08; Admin Dose 0.5 MG; Start 02/19/19 at 03:30 Ondansetron HCl (Zofran Inj) 4 mg Q6H PRN IV NAUSEA/VOMITING; Start 02/19/19 at 03:30 Acetaminophen (Tylenol Tab) 325 mg Q4H PRN GTB FOR FEVER 100AND ABOVE Last administered on 02/20/19 20:13; Admin Dose 325 MG; Start 02/19/19 at 03:30 Acetaminophen (Tylenol Tab) 650 mg Q6H PRN GTB PAIN LEVEL 1-10/10 Last administered on 02/19/19 21:49; Admin Dose 650 MG; Start 02/19/19 at 03:30 Amlodipine Besylate (Norvasc) 5 mg BID GTB Last administered on 02/27/19 20:50; Admin Dose 5 MG; Start 02/19/19 at 09:00 Ascorbic Acid (Vitamin C) 500 mg DAILY GTB Last administered on 02/28/19 08:41; Admin Dose 500 MG; Start 02/19/19 at 09:00 Aspirin (Aspirin) 81 mg DAILY GTB Last administered on 02/26/19 10:20; Admin Dose 81 MG; Start 02/19/19 at 09:00; Status Hold Atorvastatin Calcium (Lipitor) 40 mg QHS GTB Last administered on 02/27/19 20:49; Admin Dose 40 MG; Start 02/19/19 at 21:00 Ferrous Sulfate (Ferrous Sulfate (Ec)) 325 mg BID PO Last administered on 02/28/19 08:42; Admin Dose 325 MG; Start 02/19/19 at 09:00 Folic Acid (Folic Acid) 1 mg DAILY GTB Last administered on 02/28/19 08:41; Admin Dose 1 MG; Start 02/19/19 at 09:00 Guaifenesin/ Dextromethorphan (Robitussin Dm Liquid Cup) 5 ml Q4H GTB Last administered on 02/28/19 08:40; Admin Dose 5 ML; Start 02/19/19 at 03:30 Hydralazine HCl (Apresoline) 25 mg Q8 GTB Last administered on 02/28/19 05:33; Admin Dose 25 MG; Start 02/19/19 at 06:00 Linagliptin (Tradjenta) 5 mg DAILY GTB Last administered on 02/28/19 08:42; Admin Dose 5 MG; Start 02/19/19 at 09:00 Lorazepam (Ativan) 0.5 mg HS PRN GTB ANXIETY Last administered on 02/27/19 21:43; Admin Dose 0.5 MG; Start 02/19/19 at 03:30 Magnesium Hydroxide (Milk Of Mag) 30 ml QHS GTB Last administered on 02/27/19 20:49; Admin Dose 30 ML; Start 02/19/19 at 21:00 Metoprolol Tartrate (Lopressor) 50 mg BID GTB Last administered on 02/27/19 20:51; Admin Dose 50 MG; Start 02/19/19 at 09:00 Ondansetron HCl (Zofran Tab) 4 mg Q4H PRN GTB NAUSEA AND/OR VOMITING; Start 02/19/19 at 03:30 Valproate Sodium (Depakene Liquid Cup) 250 mg Q8 GTB Last administered on 02/28/19 05:32; Admin Dose 250 MG; Start 02/19/19 at 06:00 Docusate Sodium (Colace Liquid Cup) 100 mg DAILY GTB Last administered on 02/27/19 08:12; Admin Dose 100 MG; Start 02/19/19 at 09:00 Docusate Sodium (Colace Liquid Cup) 100 mg Q12H PRN GTB CONSTIPATION; Start 02/19/19 at 04:00 Acetaminophen (Tylenol Tab) 650 mg Q6H PRN GTB .PAIN 1-3 OR TEMP Last administered on 02/19/19at 11:57; Admin Dose 650 MG; Start 02/19/19 at 03:35 Mupirocin (Bactroban) 1 applic BID TOP Last administered on 02/28/19 08:43; Admin Dose 1 APPLIC; Start 02/22/19 at 14:00 Ampicillin 50 ml @ 100 mls/hr Q8 IVPB Last administered on 02/28/19at 05:32; Admin Dose 100 MLS/HR; Start 02/24/19 at 14:00 Voriconazole (Vfend) 200 mg BID PO Last administered on 02/28/19at 08:41; Admin Dose 200 MG; Start 02/24/19 at 21:00 Insulin Glargine (Lantus) 4 units DAILY@2000 SC Last administered on 02/27/19at 20:01; Admin Dose 4 UNITS; Start 02/26/19 at 20:00 Epoetin Michael-epbx (Retacrit (Esrd)) 4,000 unit MoWeFr@1700 SC ; Start 02/28/19 at 17:00 Olanzapine (Zyprexa) 2.5 mg DAILY GTB ; Start 03/01/19 at 09:00 Lansoprazole (Prevacid) 30 mg BID@0600,1800 GTB ; Start 02/28/19 at 18:00 JOSE RAUL ANDREWS MD Feb 28, 2019 14:47
[2019-02-28] MEDS: EPOETIN ALFA-EPBX (ESRD) 4,000 UNIT/ML VIAL SC SCH (17:34)
[2019-02-28] MEDS ORDERED: PANTOPRAZOLE 40 MG INJ IV SCH (18:00)
[2019-02-28] MEDS: ATORVASTATIN 40 MG TAB GTB SCH (20:52)
[2019-02-28] MEDS: INSULIN GLARGINE [LANTus] (100 UNITS/ML) SYG SC SCH (21:05)
[2019-03-01] VITALS (16 sets, daily range): BP systolic 123–153; BP diastolic 59–81; PULSE 84–98; RESP 16–20
[2019-03-01] MEDS: GUAIFENESIN/DM 5ML CUP GTB SCH ×6 (03:53→22:35)
[2019-03-01] MEDS: VALPROIC ACID LIQUID CUP 250 MG/5 ML CUP GTB SCH ×3 (05:49→22:17)
[2019-03-01] MEDS: LANSOPRAZOLE 30 MG CAP GTB SCH ×2 (05:49→18:39)
[2019-03-01] MEDS: AMPICILLIN 1 GM/NS (PMX) 50 ML IVPB SCH ×3 (05:49→22:08)
--- NOTE | 2019-03-01 08:10 | CONS ---
Assessment/Plan Assessment/Plan Hospital Course (Demo Recall) 83 yo female presented with severe anemia 1. Severe anemia,acute on chronic -GI bleed vs chronic disease -stable -melanotic stool yesterday -retic 2.6, ferritin 4490 2. End-stage renal disease on dialysis. 3. Urinary tract infection. -positive yeast 4. Dysphagia, status post percutaneous endoscopic gastrostomy tube placement. 5. Hypertension. 6. Behavioral disorder. PLAN: FOB Monitor HH Hold all anti coagulants PPI BID Consider EGD Pt examined and plan of care discussed with Dr. Baird. Consultation Date/Type/Reason Admit Date/Time Feb 19, 2019 at 01:01 Initial Consult Date Requesting Provider: JILLIAN HOLLAND MD Date/Time of Note DATE: 03/01/19 TIME: 08:05 24 HR Interval Summary Free Text/Dictation Per [employer] patient had large black stool yesterday. One unit PRBC given for hgb of 7.6 which is up today to 9.6. ASA was DCd. Exam/Review of Systems Exam Vitals Vital Signs Date Temp Pulse Resp B/P (MAP) Pulse Ox O2 O2 Flow FiO2 Time Delivery Rate 03/01/19 99.6 97 18 153/66 95 06:00 (95) 02/28/19 Room Air 12:16 Intake and Output 02/28/19 02/28/19 03/01/19 1515:00 23:00 07:00 IntakeIntake Total 460 ml 660 ml OutputOutput Total 1750 ml BalanceBalance -1750 ml 460 ml 660 ml Constitutional: alert Head: normocephalic Eyes: PERRL ENMT: mucosa pink and moist Respiratory: diminished breath sounds Cardiovascular: regular rate and rhythm Gastrointestinal: soft, non-tender Musculoskeletal: nl extremities to inspection, other 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: confused Results Result Diagram: 03/01/19 0534 03/01/19 0534 Results 24hrs Laboratory Tests Test 02/28/19 08:40 03/01/19 05:34 Bedside Glucose 154 White Blood Count 14.4 H Red Blood Count 3.43 #L Hemoglobin 9.6 #L Hematocrit 29.5 #L Mean Corpuscular Volume 86.0 Mean Corpuscular Hemoglobin 28.0 L Mean Corpuscular Hemoglobin Concent 32.5 Red Cell Distribution Width 17.2 H Platelet Count 255 Mean Platelet Volume 10.9 H Immature Granulocytes % 1.400 H Neutrophils % 80.9 H Lymphocytes % 6.8 L Monocytes % 9.1 Eosinophils % 1.3 Basophils % 0.5 Nucleated Red Blood Cells % 1.0 H Immature Granulocytes # 0.200 H Neutrophils # 11.7 H Lymphocytes # 1.0 Monocytes # 1.3 H Eosinophils # 0.2 Basophils # 0.1 Nucleated Red Blood Cells # 0.1 H Sodium Level 136 Potassium Level 4.1 Chloride Level 99 Carbon Dioxide Level 31 Anion Gap 6 Blood Urea Nitrogen 37 #H Creatinine 1.30 H Est Glomerular Filtrat Rate mL/min Glucose Level 115 Calcium Level 8.5 Phosphorus Level 3.1 Magnesium Level 2.8 H Medications Medication Current Medications IV Flush (NS 3 ml) 3 ml PER PROTOCOL IV ; Start 02/19/19 at 03:30 Lorazepam (Ativan) 0.5 mg Q8H PRN GTB .ANXIETY Last administered on 02/28/19 03:08; Admin Dose 0.5 MG; Start 02/19/19 at 03:30 Ondansetron HCl (Zofran Inj) 4 mg Q6H PRN IV NAUSEA/VOMITING; Start 02/19/19 at 03:30 Acetaminophen (Tylenol Tab) 325 mg Q4H PRN GTB FOR FEVER 100AND ABOVE Last administered on 02/20/19 20:13; Admin Dose 325 MG; Start 02/19/19 at 03:30 Acetaminophen (Tylenol Tab) 650 mg Q6H PRN GTB PAIN LEVEL 1-10/10 Last administered on 02/19/19 21:49; Admin Dose 650 MG; Start 02/19/19 at 03:30 Amlodipine Besylate (Norvasc) 5 mg BID GTB Last administered on 02/28/19 20:53; Admin Dose 5 MG; Start 02/19/19 at 09:00 Ascorbic Acid (Vitamin C) 500 mg DAILY GTB Last administered on 02/28/19 08:41; Admin Dose 500 MG; Start 02/19/19 at 09:00 Aspirin (Aspirin) 81 mg DAILY GTB Last administered on 02/26/19 10:20; Admin Dose 81 MG; Start 02/19/19 at 09:00; Status Hold Atorvastatin Calcium (Lipitor) 40 mg QHS GTB Last administered on 02/28/19 20:52; Admin Dose 40 MG; Start 02/19/19 at 21:00 Ferrous Sulfate (Ferrous Sulfate (Ec)) 325 mg BID PO Last administered on 02/28/19 20:52; Admin Dose 325 MG; Start 02/19/19 at 09:00 Folic Acid (Folic Acid) 1 mg DAILY GTB Last administered on 02/28/19 08:41; Admin Dose 1 MG; Start 02/19/19 at 09:00 Guaifenesin/ Dextromethorphan (Robitussin Dm Liquid Cup) 5 ml Q4H GTB Last administered on 03/01/19 03:53; Admin Dose 5 ML; Start 02/19/19 at 03:30 Hydralazine HCl (Apresoline) 25 mg Q8 GTB Last administered on 03/01/19 05:50; Admin Dose 25 MG; Start 02/19/19 at 06:00 Linagliptin (Tradjenta) 5 mg DAILY GTB Last administered on 02/28/19 08:42; Admin Dose 5 MG; Start 02/19/19 at 09:00 Lorazepam (Ativan) 0.5 mg HS PRN GTB ANXIETY Last administered on 02/28/19 21:43; Admin Dose 0.5 MG; Start 02/19/19 at 03:30 Metoprolol Tartrate (Lopressor) 50 mg BID GTB Last administered on 02/28/19 20:53; Admin Dose 50 MG; Start 02/19/19 at 09:00 Ondansetron HCl (Zofran Tab) 4 mg Q4H PRN GTB NAUSEA AND/OR VOMITING; Start 02/19/19 at 03:30 Valproate Sodium (Depakene Liquid Cup) 250 mg Q8 GTB Last administered on 03/01/19 05:49; Admin Dose 250 MG; Start 02/19/19 at 06:00 Docusate Sodium (Colace Liquid Cup) 100 mg DAILY GTB Last administered on 02/27/19 08:12; Admin Dose 100 MG; Start 02/19/19 at 09:00 Docusate Sodium (Colace Liquid Cup) 100 mg Q12H PRN GTB CONSTIPATION; Start 02/19/19 at 04:00 Acetaminophen (Tylenol Tab) 650 mg Q6H PRN GTB .PAIN 1-3 OR TEMP Last administered on 02/19/19 11:57; Admin Dose 650 MG; Start 02/19/19 at 03:35 Mupirocin (Bactroban) 1 applic BID TOP Last administered on 02/28/19 20:52; Admin Dose 1 APPLIC; Start 02/22/19 at 14:00 Ampicillin 50 ml @ 100 mls/hr Q8 IVPB Last administered on 03/01/19 05:49; Admin Dose 100 MLS/HR; Start 02/24/19 at 14:00 Voriconazole (Vfend) 200 mg BID PO Last administered on 02/28/19 20:53; Admin Dose 200 MG; Start 02/24/19 at 21:00 Insulin Glargine (Lantus) 4 units DAILY@2000 SC Last administered on 02/28/19 21:05; Admin Dose 4 UNITS; Start 02/26/19 at 20:00 Epoetin Michael-epbx (Retacrit (Esrd)) 4,000 unit MoWeFr@1700 SC Last administered on 02/28/19 17:34; Admin Dose 4,000 UNIT; Start 02/28/19 at 17:00 Olanzapine (Zyprexa) 2.5 mg DAILY GTB ; Start 03/01/19 at 09:00 Lansoprazole (Prevacid) 30 mg BID@0600,1800 GTB Last administered on 03/01/19 05:49; Admin Dose 30 MG; Start 02/28/19 at 18:00 TONY VENCES Mar 01, 2019 08:10
[2019-03-01] MEDS: LINAGLIPTIN 5 MG TABLET GTB SCH (09:03)
[2019-03-01] MEDS: METOPROLOL 50 MG TAB GTB SCH ×2 (09:03→20:30)
[2019-03-01] MEDS: DOCUSATE SODIUM 10 MG/ML (10ML CUP) GTB SCH (09:03)
[2019-03-01] MEDS: OLANZAPINE 2.5 MG TAB GTB SCH (09:05)
[2019-03-01] MEDS: FERROUS SULFATE (EC) 325 MG TAB PO SCH ×2 (09:05→20:30)
[2019-03-01] MEDS: AMLODIPINE 5 MG TAB GTB SCH ×2 (09:05→20:30)
[2019-03-01] MEDS: FOLIC ACID 1 MG TAB GTB SCH (09:05)
[2019-03-01] MEDS: VORICONAZOLE 200 MG TAB PO SCH ×2 (09:05→20:29)
[2019-03-01] MEDS: MUPIROCIN 2% 22 GM OINT TOP SCH ×2 (09:06→20:33)
[2019-03-01] MEDS: ASCORBIC ACID 500 MG TAB GTB SCH (09:06)
--- NOTE | 2019-03-01 10:44 | PN ---
DATE: 03/01/2019 SUBJECTIVE: The patient is seen. The patient is more alert, awake. Noted a low grade temperature o f 99.6 and white count has increased to 14.4, hemoglobin corrected after 1 unit of PRBC. PHYSICAL EXAMINATION: VITAL SIGNS: Temperature 98.3, pulse 96, respirations 17, blood pressure 148/69, saturation 94%. GENERAL: The patient is in no acute distress, alert, confused in general and easily anxious, in res traints. CARDIOVASCULAR: S1, S2, regular rate. LUNGS: Clear. ABDOMEN: Soft. G-tube in place. EXTREMITIES: No clubbing, cyanosis, or edema. LABORATORY DATA: White count 14.4, hemoglobin 9.6, hematocrit 30, platelet count 255, 7%. Chem istry: Sodium 136, potassium 4.1, chloride 99, bicarbonate 31, BUN 37, creatinine 1.3, glucose 115. Blood cultures on 02/23/2019 negative. Blood cultures on 02/21/2019 did show enterococcus species. MEDICATIONS: 1. Zyprexa 2.5 daily. 2. Prevacid 30 mg b.i.d. 3. Epogen as directed every Thursday, Thursday and Thursday. 4. Lantus 4 units daily. 5. 200 b.i.d. 6. Ampicillin IV dose per pharmacy. 7. Bactroban b.i.d. 8. Lipitor 40 at bedtime. 9. Norvasc 5 b.i.d. 8. Vitamin C 500 mg daily. 9. Ferrous sulfate 25 b.i.d. 10. Folic acid 1 mg daily. 11. Tradjenta 5 mg daily. 12. Lopressor 50 b.i.d. 13. Colace 100 daily. 14. Hydralazine 25 q.8. 15. Depakote 250 q.8h. 16. Colace 100 q.12h. p.r.n. 17. Tylenol p.r.n. 18. Zofran p.r.n. 19. Robitussin p.r.n. 20. Ativan. 21. Zofran p.r.n. ASSESSMENT AND PLAN: This is an 83-year-old [place] female, very sick with history of vascular annita ntia, diabetes mellitus, end-stage renal disease with recurrent hospitalizations for bacteremia, line sepsis, fungemia UTI with prolonged recurrent hospitalizations. 1. Respiratory. Continue O2 support as needed. 2. Recent chest x-ray overall unremarkable. 3. Cardiovascular. Continue above blood pressure medications. Off aspirin due to gastrointestinal bleed. 4. Gastrointestinal. Continue Prevacid 30 mg b.i.d. dosing. 5. Anemia, status post 1 unit of PRBC. H and H corrected accordingly. No evidence of active bleedi ng. 6. End-stage renal disease. Next dialysis is tomorrow. 7. Dysphagia. Continue G-tube feeding at 30 mL an hour. 8. Anxiety, now on low dose Zyprexa. Observe. 9. Continue to monitor WBC and fevers. If a white count does not get worse, possible will discuss d ischarge planning. Appreciate ID input. We will follow. Dictated By: DYLON HULL/MADAN Conf#: [id number] DID#: [id number] CC: DYLON WALLS MD; JOSE RAUL ANDREWS;*EndCC*
--- NOTE | 2019-03-01 12:03 | CONS ---
Assessment/Plan Assessment/Plan Hospital Course (Demo Recall) All noted, looks comfortable, Tm 99.6 Antimicrobials: Vfend, IV ampicillin Indwelling: Left subclavian permacath, PEG Microbiology: Urine culture on admission grew Dominique glabrata, blood culture grew Enterococcus Chest x-ray on admission revealed no definite evidence of pneumonia or CHF Physical examination: This is a chronically ill-appearing wasted elderly woman who is in no distress. Head atraumatic normocephalic. Neck is supple. Chest rise symmetrical breath sounds clear, diminished bases. Heart: S1-S2. Abdomen soft bowel sounds present. Extremities without cyanosis edema. Assessment: 1. S/p sepsis, present on admission 2. Recurrent UTI 3. Bacteremia, rule out infected line 4. End-stage renal disease, hemodialysis dependent 5. Anemia 6. 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 Plan: Continue on current abx, repeat cx's for T>100, bladder scan with straight cath, repeat cxr in am. Last dose of Ampicillin March 09 Consultation Date/Type/Reason Admit Date/Time Feb 19, 2019 at 01:01 Initial Consult Date Type of Consult id Requesting Provider: JILLIAN HOLLAND MD Date/Time of Note DATE: 03/01/19 TIME: 12:00 Exam/Review of Systems Exam Vitals Vital Signs Date Temp Pulse Resp B/P (MAP) Pulse Ox O2 O2 Flow FiO2 Time Delivery Rate 03/01/19 98.8 92 16 132/60 94 11:44 (84) 02/28/19 Room Air 12:16 Intake and Output 02/28/19 02/28/19 03/01/19 1414:59 22:59 06:59 IntakeIntake Total 460 ml 660 ml OutputOutput Total 1750 ml BalanceBalance -1750 ml 460 ml 660 ml Results Result Diagram: 03/01/19 0534 03/01/19 0534 Results 24hrs Laboratory Tests Test 03/01/19 05:34 White Blood Count 14.4 H Red Blood Count 3.43 #L Hemoglobin 9.6 #L Hematocrit 29.5 #L Mean Corpuscular Volume 86.0 Mean Corpuscular Hemoglobin 28.0 L Mean Corpuscular Hemoglobin Concent 32.5 Red Cell Distribution Width 17.2 H Platelet Count 255 Mean Platelet Volume 10.9 H Immature Granulocytes % 1.400 H Neutrophils % 80.9 H Lymphocytes % 6.8 L Monocytes % 9.1 Eosinophils % 1.3 Basophils % 0.5 Nucleated Red Blood Cells % 1.0 H Immature Granulocytes # 0.200 H Neutrophils # 11.7 H Lymphocytes # 1.0 Monocytes # 1.3 H Eosinophils # 0.2 Basophils # 0.1 Nucleated Red Blood Cells # 0.1 H Sodium Level 136 Potassium Level 4.1 Chloride Level 99 Carbon Dioxide Level 31 Anion Gap 6 Blood Urea Nitrogen 37 #H Creatinine 1.30 H Est Glomerular Filtrat Rate mL/min Glucose Level 115 Calcium Level 8.5 Phosphorus Level 3.1 Magnesium Level 2.8 H Medications Medication Current Medications IV Flush (NS 3 ml) 3 ml PER PROTOCOL IV ; Start 02/19/19 at 03:30 Lorazepam (Ativan) 0.5 mg Q8H PRN GTB .ANXIETY Last administered on 02/28/19 03:08; Admin Dose 0.5 MG; Start 02/19/19 at 03:30 Ondansetron HCl (Zofran Inj) 4 mg Q6H PRN IV NAUSEA/VOMITING; Start 02/19/19 at 03:30 Acetaminophen (Tylenol Tab) 325 mg Q4H PRN GTB FOR FEVER 100AND ABOVE Last administered on 02/20/19 20:13; Admin Dose 325 MG; Start 02/19/19 at 03:30 Acetaminophen (Tylenol Tab) 650 mg Q6H PRN GTB PAIN LEVEL 1-10/10 Last administered on 02/19/19 21:49; Admin Dose 650 MG; Start 02/19/19 at 03:30 Amlodipine Besylate (Norvasc) 5 mg BID GTB Last administered on 03/01/19 09:05; Admin Dose 5 MG; Start 02/19/19 at 09:00 Ascorbic Acid (Vitamin C) 500 mg DAILY GTB Last administered on 03/01/19 09:06; Admin Dose 500 MG; Start 02/19/19 at 09:00 Aspirin (Aspirin) 81 mg DAILY GTB Last administered on 02/26/19 10:20; Admin Dose 81 MG; Start 02/19/19 at 09:00; Status Hold Atorvastatin Calcium (Lipitor) 40 mg QHS GTB Last administered on 02/28/19 20:52; Admin Dose 40 MG; Start 02/19/19 at 21:00 Ferrous Sulfate (Ferrous Sulfate (Ec)) 325 mg BID PO Last administered on 03/01/19 09:05; Admin Dose 325 MG; Start 02/19/19 at 09:00 Folic Acid (Folic Acid) 1 mg DAILY GTB Last administered on 03/01/19 09:05; Admin Dose 1 MG; Start 02/19/19 at 09:00 Guaifenesin/ Dextromethorphan (Robitussin Dm Liquid Cup) 5 ml Q4H GTB Last administered on 03/01/19 09:03; Admin Dose 5 ML; Start 02/19/19 at 03:30 Hydralazine HCl (Apresoline) 25 mg Q8 GTB Last administered on 03/01/19 05:50; Admin Dose 25 MG; Start 02/19/19 at 06:00 Linagliptin (Tradjenta) 5 mg DAILY GTB Last administered on 03/01/19 09:03; Admin Dose 5 MG; Start 02/19/19 at 09:00 Lorazepam (Ativan) 0.5 mg HS PRN GTB ANXIETY Last administered on 02/28/19 21:43; Admin Dose 0.5 MG; Start 02/19/19 at 03:30 Metoprolol Tartrate (Lopressor) 50 mg BID GTB Last administered on 03/01/19 09:03; Admin Dose 50 MG; Start 02/19/19 at 09:00 Ondansetron HCl (Zofran Tab) 4 mg Q4H PRN GTB NAUSEA AND/OR VOMITING; Start 02/19/19 at 03:30 Valproate Sodium (Depakene Liquid Cup) 250 mg Q8 GTB Last administered on 03/01/19 05:49; Admin Dose 250 MG; Start 02/19/19 at 06:00 Docusate Sodium (Colace Liquid Cup) 100 mg DAILY GTB Last administered on 03/01/19 09:03; Admin Dose 100 MG; Start 02/19/19 at 09:00 Docusate Sodium (Colace Liquid Cup) 100 mg Q12H PRN GTB CONSTIPATION; Start 02/19/19 at 04:00 Acetaminophen (Tylenol Tab) 650 mg Q6H PRN GTB .PAIN 1-3 OR TEMP Last administered on 02/19/19 11:57; Admin Dose 650 MG; Start 02/19/19 at 03:35 Mupirocin (Bactroban) 1 applic BID TOP Last administered on 03/01/19 09:06; Admin Dose 1 APPLIC; Start 02/22/19 at 14:00 Ampicillin 50 ml @ 100 mls/hr Q8 IVPB Last administered on 03/01/19 05:49; Admin Dose 100 MLS/HR; Start 02/24/19 at 14:00 Voriconazole (Vfend) 200 mg BID PO Last administered on 03/01/19 09:05; Admin Dose 200 MG; Start 02/24/19 at 21:00 Insulin Glargine (Lantus) 4 units DAILY@2000 SC Last administered on 02/28/19at 21:05; Admin Dose 4 UNITS; Start 02/26/19 at 20:00 Epoetin Michael-epbx (Retacrit (Esrd)) 4,000 unit MoWeFr@1700 SC Last administered on 02/28/19at 17:34; Admin Dose 4,000 UNIT; Start 02/28/19 at 17:00 Olanzapine (Zyprexa) 2.5 mg DAILY GTB Last administered on 03/01/19 09:05; Admin Dose 2.5 MG; Start 03/01/19 at 09:00 Lansoprazole (Prevacid) 30 mg BID@0600,1800 GTB Last administered on 03/01/19 05:49; Admin Dose 30 MG; Start 02/28/19 at 18:00 PHYLICIA HOLCOMB NP Mar 01, 2019 12:03
[2019-03-01] MEDS: ATORVASTATIN 40 MG TAB GTB SCH (20:29)
[2019-03-01] MEDS: INSULIN GLARGINE [LANTus] (100 UNITS/ML) SYG SC SCH (20:51)
[2019-03-01] MEDS: LORAZEPAM 0.5 MG TAB GTB PRN (22:08)
[2019-03-02] VITALS (32 sets, daily range): BP systolic 90–153; BP diastolic 55–70; PULSE 70–103; RESP 17–19
[2019-03-02] MEDS: GUAIFENESIN/DM 5ML CUP GTB SCH ×3 (03:39→11:30)
[2019-03-02] MEDS: AMPICILLIN 1 GM/NS (PMX) 50 ML IVPB SCH ×3 (06:13→21:16)
[2019-03-02] MEDS: LANSOPRAZOLE 30 MG CAP GTB SCH ×2 (06:13→18:15)
[2019-03-02] MEDS: VALPROIC ACID LIQUID CUP 250 MG/5 ML CUP GTB SCH ×3 (06:13→21:07)
[2019-03-02] MEDS: LORAZEPAM 0.5 MG TAB GTB PRN (06:13)
[2019-03-02] MEDS: METOPROLOL 50 MG TAB GTB SCH ×3 (09:00→20:50)
[2019-03-02] MEDS: AMLODIPINE 5 MG TAB GTB SCH ×3 (09:00→20:50)
[2019-03-02] MEDS: OLANZAPINE 2.5 MG TAB GTB SCH (09:10)
[2019-03-02] MEDS: DOCUSATE SODIUM 10 MG/ML (10ML CUP) GTB SCH (09:10)
[2019-03-02] MEDS: LINAGLIPTIN 5 MG TABLET GTB SCH (09:11)
[2019-03-02] MEDS: FOLIC ACID 1 MG TAB GTB SCH (09:11)
[2019-03-02] MEDS: FERROUS SULFATE (EC) 325 MG TAB PO SCH ×2 (09:11→20:49)
[2019-03-02] MEDS: ASCORBIC ACID 500 MG TAB GTB SCH (09:12)
[2019-03-02] MEDS: VORICONAZOLE 200 MG TAB PO SCH ×2 (09:12→20:50)
[2019-03-02] MEDS: MUPIROCIN 2% 22 GM OINT TOP SCH ×2 (09:13→21:06)
--- NOTE | 2019-03-02 12:07 | CONS ---
Assessment/Plan Assessment/Plan Assessment/Plan (Daily) 1. Fevers, likely secondary to kaylah urinary tract infection, now bld cx positive gram + Entercoccus sp permacath exchange 2. End-stage renal disease on hemodialysis. 3. Urinary tract infection. 4. Hypertension. 5. Dementia. 6. Diabetes mellitus type II. 7. Diastolic heart failure. 8. Moderate protein energy malnutrition with cachexia. 9. Osteoarthritis. 10. GT status Assessment/Plan (Daily) - HD MWF , HD today - renally dose all meds Consultation Date/Type/Reason Admit Date/Time Feb 19, 2019 at 01:01 Initial Consult Date Requesting Provider: JILLIAN HOLLAND MD Date/Time of Note DATE: 03/02/19 TIME: 12:07 24 HR Interval Summary Free Text/Dictation no new events Exam/Review of Systems Exam Vitals Vital Signs Date Temp Pulse Resp B/P (MAP) Pulse Ox O2 O2 Flow FiO2 Time Delivery Rate 03/02/19 98.0 98 18 140/63 98 12:00 (88) 03/01/19 Room Air 22:00 Intake and Output 03/01/19 03/01/19 03/02/19 1515:00 23:00 07:00 IntakeIntake Total 760 ml 680 ml BalanceBalance 760 ml 680 ml Exam hest Permcath no bleeding today Constitutional: alert, frail Head: normocephalic Neck: supple Respiratory: diminished breath sounds Gastrointestinal: soft, other (GT ) Results Result Diagram: 03/02/19 0544 03/02/19 0544 Results 24hrs Laboratory Tests Test 03/01/19 20:36 03/02/19 03:38 03/02/19 05:24 03/02/19 05:44 Bedside Glucose 189 146 Lab Scanned BLOOD TRANSFUSIO Report N White Blood Count 15.4 H Red Blood Count 3.40 L Hemoglobin 9.3 L Hematocrit 28.9 L Mean Corpuscular 85.0 Volume Mean Corpuscular 27.4 L Hemoglobin Mean Corpuscular 32.2 Hemoglobin Concen t Red Cell 16.7 H Distribution Width Platelet Count 295 Mean Platelet 11.2 H Volume Immature 1.600 H Granulocytes % Neutrophils % 79.2 H Lymphocytes % 7.9 L Monocytes % 9.7 Eosinophils % 1.3 Basophils % 0.3 Nucleated Red 1.0 H Blood Cells % Immature 0.240 H Granulocytes # Neutrophils # 12.2 H Lymphocytes # 1.2 Monocytes # 1.5 H Eosinophils # 0.2 Basophils # 0.0 Nucleated Red 0.2 H Blood Cells # Sodium Level 134 L Potassium Level 4.3 Chloride Level 97 Carbon Dioxide 29 Level Anion Gap 8 Blood Urea 57 H Nitrogen Creatinine 1.84 H Est Glomerular Filtrat Rate mL/min Glucose Level 135 Calcium Level 8.3 L Phosphorus Level 3.8 Magnesium Level 3.0 H Medications Medication Current Medications IV Flush (NS 3 ml) 3 ml PER PROTOCOL IV ; Start 02/19/19 at 03:30 Lorazepam (Ativan) 0.5 mg Q8H PRN GTB .ANXIETY Last administered on 03/02/19 06:13; Admin Dose 0.5 MG; Start 02/19/19 at 03:30 Ondansetron HCl (Zofran Inj) 4 mg Q6H PRN IV NAUSEA/VOMITING; Start 02/19/19 at 03:30 Acetaminophen (Tylenol Tab) 325 mg Q4H PRN GTB FOR FEVER 100AND ABOVE Last administered on 02/20/19 20:13; Admin Dose 325 MG; Start 02/19/19 at 03:30 Acetaminophen (Tylenol Tab) 650 mg Q6H PRN GTB PAIN LEVEL 1-10/10 Last administered on 02/19/19 21:49; Admin Dose 650 MG; Start 02/19/19 at 03:30 Amlodipine Besylate (Norvasc) 5 mg BID GTB Last administered on 03/01/19 20:30; Admin Dose 5 MG; Start 02/19/19 at 09:00 Ascorbic Acid (Vitamin C) 500 mg DAILY GTB Last administered on 03/02/19 09:12; Admin Dose 500 MG; Start 02/19/19 at 09:00 Aspirin (Aspirin) 81 mg DAILY GTB Last administered on 02/26/19 10:20; Admin Dose 81 MG; Start 02/19/19 at 09:00; Status Hold Atorvastatin Calcium (Lipitor) 40 mg QHS GTB Last administered on 03/01/19 20:29; Admin Dose 40 MG; Start 02/19/19 at 21:00 Ferrous Sulfate (Ferrous Sulfate (Ec)) 325 mg BID PO Last administered on 03/02/19 09:11; Admin Dose 325 MG; Start 02/19/19 at 09:00 Folic Acid (Folic Acid) 1 mg DAILY GTB Last administered on 03/02/19 09:11; Admin Dose 1 MG; Start 02/19/19 at 09:00 Guaifenesin/ Dextromethorphan (Robitussin Dm Liquid Cup) 5 ml Q4H GTB Last administered on 03/02/19 09:10; Admin Dose 5 ML; Start 02/19/19 at 03:30 Hydralazine HCl (Apresoline) 25 mg Q8 GTB Last administered on 03/02/19 06:13; Admin Dose 25 MG; Start 02/19/19 at 06:00 Linagliptin (Tradjenta) 5 mg DAILY GTB Last administered on 03/02/19 09:11; Admin Dose 5 MG; Start 02/19/19 at 09:00 Lorazepam (Ativan) 0.5 mg HS PRN GTB ANXIETY Last administered on 02/28/19 21:43; Admin Dose 0.5 MG; Start 02/19/19 at 03:30 Metoprolol Tartrate (Lopressor) 50 mg BID GTB Last administered on 03/01/19 20:30; Admin Dose 50 MG; Start 02/19/19 at 09:00 Ondansetron HCl (Zofran Tab) 4 mg Q4H PRN GTB NAUSEA AND/OR VOMITING; Start 02/19/19 at 03:30 Valproate Sodium (Depakene Liquid Cup) 250 mg Q8 GTB Last administered on 03/02/19 06:13; Admin Dose 250 MG; Start 02/19/19 at 06:00 Docusate Sodium (Colace Liquid Cup) 100 mg DAILY GTB Last administered on 03/02/19 09:10; Admin Dose 100 MG; Start 02/19/19 at 09:00 Docusate Sodium (Colace Liquid Cup) 100 mg Q12H PRN GTB CONSTIPATION; Start 02/19/19 at 04:00 Acetaminophen (Tylenol Tab) 650 mg Q6H PRN GTB .PAIN 1-3 OR TEMP Last administered on 02/19/19 11:57; Admin Dose 650 MG; Start 02/19/19 at 03:35 Mupirocin (Bactroban) 1 applic BID TOP Last administered on 03/02/19 09:13; Ad min Dose 1 APPLIC; Start 02/22/19 at 14:00 Ampicillin 50 ml @ 100 mls/hr Q8 IVPB Last administered on 03/02/19 06:13; Admin Dose 100 MLS/HR; Start 02/24/19 at 14:00 Voriconazole (Vfend) 200 mg BID PO Last administered on 03/02/19 09:12; Admin Dose 200 MG; Start 02/24/19 at 21:00 Insulin Glargine (Lantus) 4 units DAILY@2000 SC Last administered on 03/01/19 20:51; Admin Dose 4 UNITS; Start 02/26/19 at 20:00 Epoetin Michael-epbx (Retacrit (Esrd)) 4,000 unit MoWeFr@1700 SC Last administered on 02/28/19 17:34; Admin Dose 4,000 UNIT; Start 02/28/19 at 17:00 Olanzapine (Zyprexa) 2.5 mg DAILY GTB Last administered on 03/02/19 09:10; Admin Dose 2.5 MG; Start 03/01/19 at 09:00 Lansoprazole (Prevacid) 30 mg BID@0600,1800 GTB Last administered on 03/02/19 06:13; Admin Dose 30 MG; Start 02/28/19 at 18:00 JOSE RAUL ANDREWS MD Mar 02, 2019 12:07
--- NOTE | 2019-03-02 15:46 | CONS ---
Assessment/Plan Assessment/Plan Assessment/Plan (Daily) 1. Severe anemia,acute on chronic -GI bleed vs chronic disease -stable -melanotic stool yesterday -retic 2.6, ferritin 4490 2. End-stage renal disease on dialysis. 3. Urinary tract infection. -positive yeast 4. Dysphagia, status post percutaneous endoscopic gastrostomy tube placement. 5. Hypertension. 6. Behavioral disorder. PLAN: FOB 3 times reported negative Monitor HH Hold all anti coagulants PPI BID Consider push enteroscopy if stool for occult blood is positive Consultation Date/Type/Reason Admit Date/Time Feb 19, 2019 at 01:01 Initial Consult Date 02/23/19 Requesting Provider: JILLIAN HOLLAND MD Date/Time of Note DATE: 03/02/19 TIME: 15:46 24 HR Interval Summary Constitutional: no complaints Exam/Review of Systems Exam Vitals Vital Signs Date Temp Pulse Resp B/P (MAP) Pulse Ox O2 O2 Flow FiO2 Time Delivery Rate 03/02/19 97.4 98 19 141/58 96 14:00 (85) 03/02/19 Room Air 12:59 Intake and Output 03/01/19 03/01/19 03/02/19 1515:00 23:00 07:00 IntakeIntake Total 760 ml 680 ml BalanceBalance 760 ml 680 ml Constitutional: alert, oriented, well developed Psych: no complaints, nl mood/affect Head: normocephalic, atraumatic Eyes: nl conjunctiva, EOMI, nl lids, nl sclera, PERRL ENMT: nl external ears & nose, nl lips & teeth, nl nasal mucosa & septum Neck: supple, non-tender Respiratory: clear to auscultation, normal air movement Cardiovascular: regular rate and rhythm, nl pulses Gastrointestinal: soft, nl liver, spleen, non-tender Musculoskeletal: nl extremities to inspection, nl gait and stance Extremities: normal pulses 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: PATHOLOGY SECRETARY II-XII intact, nl mental status, nl speech, nl strength Skin: nl turgor; No rash or lesions Lymph: nl lymph nodes Results Result Diagram: 03/02/19 0544 03/02/19 0544 Results 24hrs Laboratory Tests Test 03/01/19 20:36 03/02/19 03:38 03/02/19 05:24 03/02/19 05:44 Bedside Glucose 189 146 Lab Scanned BLOOD TRANSFUSIO Report N White Blood Count 15.4 H Red Blood Count 3.40 L Hemoglobin 9.3 L Hematocrit 28.9 L Mean Corpuscular 85.0 Volume Mean Corpuscular 27.4 L Hemoglobin Mean Corpuscular 32.2 Hemoglobin Concen t Red Cell 16.7 H Distribution Width Platelet Count 295 Mean Platelet 11.2 H Volume Immature 1.600 H Granulocytes % Neutrophils % 79.2 H Lymphocytes % 7.9 L Monocytes % 9.7 Eosinophils % 1.3 Basophils % 0.3 Nucleated Red 1.0 H Blood Cells % Immature 0.240 H Granulocytes # Neutrophils # 12.2 H Lymphocytes # 1.2 Monocytes # 1.5 H Eosinophils # 0.2 Basophils # 0.0 Nucleated Red 0.2 H Blood Cells # Sodium Level 134 L Potassium Level 4.3 Chloride Level 97 Carbon Dioxide 29 Level Anion Gap 8 Blood Urea 57 H Nitrogen Creatinine 1.84 H Est Glomerular Filtrat Rate mL/min Glucose Level 135 Calcium Level 8.3 L Phosphorus Level 3.8 Magnesium Level 3.0 H Medications Medication Current Medications IV Flush (NS 3 ml) 3 ml PER PROTOCOL IV ; Start 02/19/19 at 03:30 Lorazepam (Ativan) 0.5 mg Q8H PRN GTB .ANXIETY Last administered on 03/02/19 06:13; Admin Dose 0.5 MG; Start 02/19/19 at 03:30 Ondansetron HCl (Zofran Inj) 4 mg Q6H PRN IV NAUSEA/VOMITING; Start 02/19/19 at 03:30 Acetaminophen (Tylenol Tab) 325 mg Q4H PRN GTB FOR FEVER 100AND ABOVE Last administered on 02/20/19at 20:13; Admin Dose 325 MG; Start 02/19/19 at 03:30 Acetaminophen (Tylenol Tab) 650 mg Q6H PRN GTB PAIN LEVEL 1-10/10 Last administered on 02/19/19 21:49; Admin Dose 650 MG; Start 02/19/19 at 03:30 Amlodipine Besylate (Norvasc) 5 mg BID GTB Last administered on 03/02/19 14:12; Admin Dose 5 MG; Start 02/19/19 at 09:00 Ascorbic Acid (Vitamin C) 500 mg DAILY GTB Last administered on 03/02/19 09:12; Admin Dose 500 MG; Start 02/19/19 at 09:00 Aspirin (Aspirin) 81 mg DAILY GTB Last administered on 02/26/19 10:20; Admin Dose 81 MG; Start 02/19/19 at 09:00; Status Hold Atorvastatin Calcium (Lipitor) 40 mg QHS GTB Last administered on 03/01/19 20:29; Admin Dose 40 MG; Start 02/19/19 at 21:00 Ferrous Sulfate (Ferrous Sulfate (Ec)) 325 mg BID PO Last administered on 03/02/19 09:11; Admin Dose 325 MG; Start 02/19/19 at 09:00 Folic Acid (Folic Acid) 1 mg DAILY GTB Last administered on 03/02/19 09:11; Admin Dose 1 MG; Start 02/19/19 at 09:00 Hydralazine HCl (Apresoline) 25 mg Q8 GTB Last administered on 03/02/19 14:10; Admin Dose 25 MG; Start 02/19/19 at 06:00 Linagliptin (Tradjenta) 5 mg DAILY GTB Last administered on 03/02/19 09:11; Admin Dose 5 MG; Start 02/19/19 at 09:00 Lorazepam (Ativan) 0.5 mg HS PRN GTB ANXIETY Last administered on 02/28/19 21:43; Admin Dose 0.5 MG; Start 02/19/19 at 03:30 Metoprolol Tartrate (Lopressor) 50 mg BID GTB Last administered on 03/02/19 14:11; Admin Dose 50 MG; Start 02/19/19 at 09:00 Ondansetron HCl (Zofran Tab) 4 mg Q4H PRN GTB NAUSEA AND/OR VOMITING; Start 02/19/19 at 03:30 Valproate Sodium (Depakene Liquid Cup) 250 mg Q8 GTB Last administered on 03/02/19 14:04; Admin Dose 250 MG; Start 02/19/19 at 06:00 Docusate Sodium (Colace Liquid Cup) 100 mg DAILY GTB Last administered on 03/02/19 09:10; Admin Dose 100 MG; Start 02/19/19 at 09:00 Docusate Sodium (Colace Liquid Cup) 100 mg Q12H PRN GTB CONSTIPATION; Start 02/19/19 at 04:00 Acetaminophen (Tylenol Tab) 650 mg Q6H PRN GTB .PAIN 1-3 OR TEMP Last administered on 02/19/19 11:57; Admin Dose 650 MG; Start 02/19/19 at 03:35 Mupirocin (Bactroban) 1 applic BID TOP Last administered on 03/02/19 09:13; Admin Dose 1 APPLIC; Start 02/22/19 at 14:00 Ampicillin 50 ml @ 100 mls/hr Q8 IVPB Last administered on 03/02/19 14:03; Admin Dose 100 MLS/HR; Start 02/24/19 at 14:00 Voriconazole (Vfend) 200 mg BID PO Last administered on 03/02/19 09:12; Admin Dose 200 MG; Start 02/24/19 at 21:00 Insulin Glargine (Lantus) 4 units DAILY@2000 SC Last administered on 03/01/19 20:51; Admin Dose 4 UNITS; Start 02/26/19 at 20:00 Epoetin Michael-epbx (Retacrit (Esrd)) 4,000 unit MoWeFr@1700 SC Last administered on 02/28/19 17:34; Admin Dose 4,000 UNIT; Start 02/28/19 at 17:00 Olanzapine (Zyprexa) 2.5 mg DAILY GTB Last administered on 03/02/19 09:10; Admin Dose 2.5 MG; Start 03/01/19 at 09:00 Lansoprazole (Prevacid) 30 mg BID@0600,1800 GTB Last administered on 03/02/19 06:13; Admin Dose 30 MG; Start 02/28/19 at 18:00 CHRISS WELCH MD Mar 02, 2019 15:46
--- NOTE | 2019-03-02 15:58 | CONS ---
Assessment/Plan Assessment/Plan Hospital Course (Demo Recall) Sleeping, looks comfortable, afebrile. WBC today 15.4 platelets 295 neutrophils 79.2. Antimicrobials: Vfend, IV ampicillin Indwelling: Left subclavian permacath, PEG Microbiology: Urine culture on admission grew Dominique glabrata, blood culture grew Enterococcus Chest x-ray on admission revealed no definite evidence of pneumonia or CHF Physical examination: This is a chronically ill-appearing wasted elderly woman who is in no distress. Head atraumatic normocephalic. Neck is supple. Chest rise symmetrical breath sounds clear, diminished bases. Heart: S1-S2. Abdomen soft bowel sounds present. Extremities without cyanosis edema. Assessment: 1. S/p sepsis, present on admission 2. Recurrent UTI 3. Bacteremia, rule out infected line 4. End-stage renal disease, hemodialysis dependent 5. Anemia 6. 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 Repeat blood cultures with next hemodialysis from [place] Consultation Date/Type/Reason Admit Date/Time Feb 19, 2019 at 01:01 Initial Consult Date Type of Consult id Requesting Provider: JILLIAN HOLLAND MD Date/Time of Note DATE: 03/02/19 TIME: 15:57 Exam/Review of Systems Exam Vitals Vital Signs Date Temp Pulse Resp B/P (MAP) Pulse Ox O2 O2 Flow FiO2 Time Delivery Rate 03/02/19 97.4 98 19 141/58 96 14:00 (85) 03/02/19 Room Air 12:59 Intake and Output 03/01/19 03/01/19 03/02/19 1515:00 23:00 07:00 IntakeIntake Total 760 ml 680 ml BalanceBalance 760 ml 680 ml Results Result Diagram: 03/02/19 0544 03/02/19 0544 Results 24hrs Laboratory Tests Test 03/01/19 20:36 03/02/19 03:38 03/02/19 05:24 03/02/19 05:44 Bedside Glucose 189 146 Lab Scanned BLOOD TRANSFUSIO Report N White Blood Count 15.4 H Red Blood Count 3.40 L Hemoglobin 9.3 L Hematocrit 28.9 L Mean Corpuscular 85.0 Volume Mean Corpuscular 27.4 L Hemoglobin Mean Corpuscular 32.2 Hemoglobin Concen t Red Cell 16.7 H Distribution Width Platelet Count 295 Mean Platelet 11.2 H Volume Immature 1.600 H Granulocytes % Neutrophils % 79.2 H Lymphocytes % 7.9 L Monocytes % 9.7 Eosinophils % 1.3 Basophils % 0.3 Nucleated Red 1.0 H Blood Cells % Immature 0.240 H Granulocytes # Neutrophils # 12.2 H Lymphocytes # 1.2 Monocytes # 1.5 H Eosinophils # 0.2 Basophils # 0.0 Nucleated Red 0.2 H Blood Cells # Sodium Level 134 L Potassium Level 4.3 Chloride Level 97 Carbon Dioxide 29 Level Anion Gap 8 Blood Urea 57 H Nitrogen Creatinine 1.84 H Est Glomerular Filtrat Rate mL/min Glucose Level 135 Calcium Level 8.3 L Phosphorus Level 3.8 Magnesium Level 3.0 H Medications Medication Current Medications IV Flush (NS 3 ml) 3 ml PER PROTOCOL IV ; Start 02/19/19 at 03:30 Lorazepam (Ativan) 0.5 mg Q8H PRN GTB .ANXIETY Last administered on 03/02/19 06:13; Admin Dose 0.5 MG; Start 02/19/19 at 03:30 Ondansetron HCl (Zofran Inj) 4 mg Q6H PRN IV NAUSEA/VOMITING; Start 02/19/19 at 03:30 Acetaminophen (Tylenol Tab) 325 mg Q4H PRN GTB FOR FEVER 100AND ABOVE Last administered on 02/20/19 20:13; Admin Dose 325 MG; Start 02/19/19 at 03:30 Acetaminophen (Tylenol Tab) 650 mg Q6H PRN GTB PAIN LEVEL 1-10/10 Last administered on 02/19/19at 21:49; Admin Dose 650 MG; Start 02/19/19 at 03:30 Amlodipine Besylate (Norvasc) 5 mg BID GTB Last administered on 03/02/19 14:12; Admin Dose 5 MG; Start 02/19/19 at 09:00 Ascorbic Acid (Vitamin C) 500 mg DAILY GTB Last administered on 03/02/19 09:12; Admin Dose 500 MG; Start 02/19/19 at 09:00 Aspirin (Aspirin) 81 mg DAILY GTB Last administered on 02/26/19 10:20; Admin Dose 81 MG; Start 02/19/19 at 09:00; Status Hold Atorvastatin Calcium (Lipitor) 40 mg QHS GTB Last administered on 03/01/19 20:29; Admin Dose 40 MG; Start 02/19/19 at 21:00 Ferrous Sulfate (Ferrous Sulfate (Ec)) 325 mg BID PO Last administered on 03/02/19 09:11; Admin Dose 325 MG; Start 02/19/19 at 09:00 Folic Acid (Folic Acid) 1 mg DAILY GTB Last administered on 03/02/19 09:11; Admin Dose 1 MG; Start 02/19/19 at 09:00 Hydralazine HCl (Apresoline) 25 mg Q8 GTB Last administered on 03/02/19 14:10; Admin Dose 25 MG; Start 02/19/19 at 06:00 Linagliptin (Tradjenta) 5 mg DAILY GTB Last administered on 03/02/19 09:11; Admin Dose 5 MG; Start 02/19/19 at 09:00 Lorazepam (Ativan) 0.5 mg HS PRN GTB ANXIETY Last administered on 02/28/19 21:43; Admin Dose 0.5 MG; Start 02/19/19 at 03:30 Metoprolol Tartrate (Lopressor) 50 mg BID GTB Last administered on 03/02/19 14:11; Admin Dose 50 MG; Start 02/19/19 at 09:00 Ondansetron HCl (Zofran Tab) 4 mg Q4H PRN GTB NAUSEA AND/OR VOMITING; Start 02/19/19 at 03:30 Valproate Sodium (Depakene Liquid Cup) 250 mg Q8 GTB Last administered on 03/02/19 14:04; Admin Dose 250 MG; Start 02/19/19 at 06:00 Docusate Sodium (Colace Liquid Cup) 100 mg DAILY GTB Last administered on 03/02/19 09:10; Admin Dose 100 MG; Start 02/19/19 at 09:00 Docusate Sodium (Colace Liquid Cup) 100 mg Q12H PRN GTB CONSTIPATION; Start 02/19/19 at 04:00 Acetaminophen (Tylenol Tab) 650 mg Q6H PRN GTB .PAIN 1-3 OR TEMP Last administered on 02/19/19 11:57; Admin Dose 650 MG; Start 02/19/19 at 03:35 Mupirocin (Bactroban) 1 applic BID TOP Last administered on 03/02/19 09:13; Admin Dose 1 APPLIC; Start 02/22/19 at 14:00 Ampicillin 50 ml @ 100 mls/hr Q8 IVPB Last administered on 03/02/19 14:03; Admin Dose 100 MLS/HR; Start 02/24/19 at 14:00 Voriconazole (Vfend) 200 mg BID PO Last administered on 03/02/19 09:12; Admin Dose 200 MG; Start 02/24/19 at 21:00 Insulin Glargine (Lantus) 4 units DAILY@2000 SC Last administered on 03/01/19 20:51; Admin Dose 4 UNITS; Start 02/26/19 at 20:00 Epoetin Michael-epbx (Retacrit (Esrd)) 4,000 unit MoWeFr@1700 SC Last administered on 02/28/19 17:34; Admin Dose 4,000 UNIT; Start 02/28/19 at 17:00 Olanzapine (Zyprexa) 2.5 mg DAILY GTB Last administered on 03/02/19 09:10; Admin Dose 2.5 MG; Start 03/01/19 at 09:00 Lansoprazole (Prevacid) 30 mg BID@0600,1800 GTB Last administered on 03/02/19 06:13; Admin Dose 30 MG; Start 02/28/19 at 18:00 PHYLICIA HOLCOMB NP Mar 02, 2019 15:58
[2019-03-02] MEDS: EPOETIN ALFA-EPBX (ESRD) 4,000 UNIT/ML VIAL SC SCH (18:17)
--- NOTE | 2019-03-02 18:58 | PN ---
DATE: 03/02/2019 SUBJECTIVE: The patient was seen. Case was discussed with nursing staff. The patient is to be dial yzed today. The patient is resting comfortably in bed. The patient is still with persistent leukocy tosis. White count increased to 15.4. We will continue to monitor. PHYSICAL EXAMINATION OBJECTIVE: VITAL SIGNS: Temperature 97.4, pulse 98, respiration 18, blood pressure 141/58, saturation 96%. GENERAL: The patient is currently resting comfortably. CARDIOVASCULAR: S1, S2. LUNGS: Decreased bilaterally, otherwise clear. ABDOMEN: Soft. G-tube in place. EXTREMITIES: No clubbing, cyanosis or edema. SKIN: Left PermCath is in place. No evidence of active bleeding. LABORATORY DATA: Done today show a white count of 15.4, hemoglobin stable at 9.3, hematocrit 29, mejia telet count is 295, neutrophils 79%, lymphs 8%. Chemistry: Sodium 134, potassium 4.3, chloride 97, bicarb 29, BUN 57, creatinine 1.84, glucose of 135. The patient's last blood culture on 02/23/2019 s hows no growth. MEDICATIONS: Reviewed and include: 1. Zyprexa 2.5 daily. 2. Prevacid 30 mg b.i.d. 3. Rectacrit 4000 Thursday, Thursday, Thursday. 4. Lantus 4 units daily. 5. Vfend 200 b.i.d. 6. Ampicillin IV dose per pharmacy. 5. Bactroban b.i.d. 6. Lipitor 40 at bedtime. 7. Norvasc 5 mg b.i.d. 8. Vitamin C 500 mg daily. 9. Ferrous sulfate 325 b.i.d. 10. Folic acid 1 mg daily. 11. Tradjenta 5 mg daily. 12. Metoprolol titrate 50 b.i.d. 13. Colace 100 daily. 14. Hydralazine 25 q.8. 15. Depakote 250 q.8. 16. Colace p.r.n. 17. Tylenol p.r.n. 18. Ativan p.r.n. 19. Zofran p.r.n. 20. Lorazepam p.r.n. ASSESSMENT AND PLAN: This is an 83-year-old [place] female, very sick with history of vascular annita ntia, diabetes mellitus, end-stage renal disease, nonambulatory with frequent hospitalization for marta teremia, line sepsis, fungemia, urinary tract infection. 1. Respiratory: O2 support as needed. Breathing comfortably. 2. Cardiovascular: Continue above blood pressure meds. Blood pressure is under control. Off aspir in due to gastrointestinal bleed and worsening anemia. 3. Gastrointestinal: On Prevacid b.i.d. dosing. For her anemia, we will also continue Epogen. H a nd H remain stable. 4. End-stage renal disease, dialysis every Thursday, Thursday and Thursday. 5. Dysphagia. Continue G-tube feeding at 30 mL an hour, previously on higher dose. She would have residual aspirate. 6. Anxiety. Continue Zyprexa and Ativan p.r.n. 7. Continue to monitor WBC and fevers. If trending down, may discontinue and discharge planning andrae n. We will follow. Dictated By: DYLON HULL/MADAN Conf#: [id number] DID#: [id number] CC: JOSE RAUL ANDREWS;*EndCC*
[2019-03-02] MEDS: ATORVASTATIN 40 MG TAB GTB SCH (20:49)
[2019-03-02] MEDS: INSULIN GLARGINE [LANTus] (100 UNITS/ML) SYG SC SCH (20:59)
[2019-03-03] VITALS (16 sets, daily range): BP systolic 112–135; BP diastolic 55–83; PULSE 76–88; RESP 17–20
[2019-03-03] MEDS: LANSOPRAZOLE 30 MG CAP GTB SCH ×2 (06:35→17:29)
[2019-03-03] MEDS: VALPROIC ACID LIQUID CUP 250 MG/5 ML CUP GTB SCH ×3 (06:35→21:51)
[2019-03-03] MEDS: AMPICILLIN 1 GM/NS (PMX) 50 ML IVPB SCH ×3 (06:35→21:51)
[2019-03-03] MEDS: OLANZAPINE 2.5 MG TAB GTB SCH ×2 (09:00→09:50)
[2019-03-03] MEDS: LINAGLIPTIN 5 MG TABLET GTB SCH (09:02)
[2019-03-03] MEDS: ASCORBIC ACID 500 MG TAB GTB SCH (09:02)
[2019-03-03] MEDS: DOCUSATE SODIUM 10 MG/ML (10ML CUP) GTB SCH (09:03)
[2019-03-03] MEDS: FERROUS SULFATE (EC) 325 MG TAB PO SCH ×2 (09:03→20:26)
[2019-03-03] MEDS: VORICONAZOLE 200 MG TAB PO SCH ×2 (09:03→20:27)
[2019-03-03] MEDS: FOLIC ACID 1 MG TAB GTB SCH (09:03)
[2019-03-03] MEDS: AMLODIPINE 5 MG TAB GTB SCH ×2 (09:04→20:28)
[2019-03-03] MEDS: METOPROLOL 50 MG TAB GTB SCH ×2 (09:05→20:28)
[2019-03-03] MEDS: MUPIROCIN 2% 22 GM OINT TOP SCH ×2 (09:06→20:29)
--- NOTE | 2019-03-03 14:34 | PN ---
DATE: 03/03/2019 SUBJECTIVE: The patient seen, appears comfortable. Place the patient with a sitter is in anticipati on for discharge. The patient is to be off restraints. The patient's white count has improved but n otified ID recommendation regarding obtaining a repeat blood cultures from the dialysis line and urin alysis as white count yesterday increased but today it is PHYSICAL EXAMINATION: VITAL SIGNS: Temperature 98.7. The patient had a T-max of 99.5 at midnight, pulse 79, respirations 18, blood pressure 125/56, saturation 97%. GENERAL: The patient is in no acute distress. HEENT: Normocephalic, atraumatic, frail, pale, temporal wasting. CARDIOVASCULAR: S1, S2, regular rate. Left upper chest IJ. CHEST: Evidence of bleeding. ABDOMEN: Soft. G-tube in place. EXTREMITIES: No clubbing, cyanosis, or edema. LABORATORY DATA: White count is 8.9, hemoglobin 8.5, hematocrit 27, platelet count 273, neutrophils 76%, lymphs 9%. Chemistry: Sodium 133, potassium 3.7, chloride 97, bicarbonate 32, BUN 35, creatini ne 1.32, glucose 173. Urinalysis was requested. Patient's chest x-ray dated 03/02, yesterday, shows stable cardiomegaly, pulmonary vascular congestion, mild interstitial edema. Left basilar subsegmen logan atelectasis and possible small left pleural effusion. MEDICATIONS: Again reviewed extensively. They include: 1. Zyprexa. 2. Prevacid. 3. which is Epogen. 4. Lantus. 5. V Fend 6. Ampicillin 7. Bactroban. 8. Lipitor. 9. Norvasc. 10. Vitamin C. 11. Ferrous sulfate. 12. Folic acid. 13. Tradjenta. 14. Lopressor. 15. Colace. 16. Hydralazine. 17. Depakote. 18. Colace. 19. Tylenol. 20. Multiple p.r.n. meds which were reviewed. ASSESSMENT AND PLAN: This is an 83-year-old [place] female, very sick, with history of vascular dem entia, diabetes mellitus, end-stage renal disease, nonambulatory with frequent hospitalizations for b acteremia, line sepsis, fungemia and urinary tract infection. 1. Respiratory. Noted above chest x-ray. Overall, breathing comfortably. O2 support as needed. F luid removal by dialysis. 2. Cardiovascular. Vitals are stable. 3. Gastrointestinal. Off aspirin due to risk of bleeding. Continue Prevacid b.i.d. dosing and Epog en per nephrology. 4. End-stage renal disease. Next dialysis is for tomorrow; every Thursday, Thursday and Thursday. 5. Dysphagia. G-tube feeding at 30 mL an hour, tolerating it well with no aspiration or high residu al. 6. Anxiety, on Zyprexa and p.r.n. anxiolytics. Patient now with a sitter. 7. Infectious disease. The patient with treatment for bacteremia and urinary tract infection, remai ns on V Fend and ampicillin. Continue the same. Follow up with repeat studies and follow up tomorro w's WBC. If that remains stable the patient will be discharged back to the [facility]. Overall improving. We will follow. Dictated By: DYLON HULL/MADAN Conf#: [id number] DID#: [id number]
--- NOTE | 2019-03-03 15:14 | CONS ---
Assessment/Plan Assessment/Plan Hospital Course (Demo Recall) No acute events no fevers overnight WBC today 8.9 no shift no bands Antimicrobials: Vfend, IV ampicillin Indwelling: Left subclavian permacath, PEG Microbiology: Urine culture on admission grew Dominique glabrata, blood culture grew Enterococcus Chest x-ray on admission revealed no definite evidence of pneumonia or CHF Physical examination: This is a chronically ill-appearing wasted elderly woman who is in no distress. Head atraumatic normocephalic. Neck is supple. Chest rise symmetrical breath sounds clear, diminished bases. Heart: S1-S2. Abdomen soft bowel sounds present. Extremities without cyanosis edema. Assessment: 1. S/p sepsis, present on admission 2. Recurrent UTI 3. Bacteremia, rule out infected line 4. End-stage renal disease, hemodialysis dependent 5. Anemia 6. 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 Last dose of Ampicillin is March 09 Consultation Date/Type/Reason Admit Date/Time Feb 19, 2019 at 01:01 Initial Consult Date Type of Consult id Requesting Provider: JILLIAN HOLLAND MD Date/Time of Note DATE: 03/03/19 TIME: 15:11 Exam/Review of Systems Exam Vitals Vital Signs Date Temp Pulse Resp B/P (MAP) Pulse Ox O2 O2 Flow FiO2 Time Delivery Rate 03/03/19 98.0 83 18 131/60 94 14:18 (83) 03/02/19 Room Air 12:59 Intake and Output 03/02/19 03/02/19 03/03/19 1515:00 23:00 07:00 IntakeIntake Total 760 ml 660 ml OutputOutput Total 1500 ml BalanceBalance -1500 ml 760 ml 660 ml Results Result Diagram: 03/03/19 0601 03/03/19 0601 Results 24hrs Laboratory Tests Test 03/02/19 20:48 03/03/19 02:32 03/03/19 06:01 03/03/19 09:01 Bedside Glucose 168 157 171 White Blood Count 8.9 # Red Blood Count 3.15 L Hemoglobin 8.5 L Hematocrit 27.2 L Mean Corpuscular 86.3 Volume Mean Corpuscular 27.0 L Hemoglobin Mean Corpuscular 31.3 L Hemoglobin Concent Red Cell 16.5 H Distribution Width Platelet Count 273 Mean Platelet Volume 11.1 H Immature 1.200 H Granulocytes % Neutrophils % 76.3 Lymphocytes % 9.0 L Monocytes % 11.1 H Eosinophils % 2.1 Basophils % 0.3 Nucleated Red Blood 1.1 H Cells % Immature 0.110 H Granulocytes # Neutrophils # 6.7 Lymphocytes # 0.8 Monocytes # 1.0 H Eosinophils # 0.2 Basophils # 0.0 Nucleated Red Blood 0.1 H Cells # Sodium Level 133 L Potassium Level 3.7 Chloride Level 97 Carbon Dioxide Level 32 H Anion Gap 4 L Blood Urea Nitrogen 35 #H Creatinine 1.32 H Est Glomerular Filtrat Rate mL/min Glucose Level 133 Calcium Level 7.8 L Phosphorus Level 3.0 Magnesium Level 2.5 Medications Medication Current Medications IV Flush (NS 3 ml) 3 ml PER PROTOCOL IV ; Start 02/19/19 at 03:30 Lorazepam (Ativan) 0.5 mg Q8H PRN GTB .ANXIETY Last administered on 03/02/19 06:13; Admin Dose 0.5 MG; Start 02/19/19 at 03:30 Ondansetron HCl (Zofran Inj) 4 mg Q6H PRN IV NAUSEA/VOMITING; Start 02/19/19 at 03:30 Acetaminophen (Tylenol Tab) 325 mg Q4H PRN GTB FOR FEVER 100AND ABOVE Last administered on 02/20/19 20:13; Admin Dose 325 MG; Start 02/19/19 at 03:30 Acetaminophen (Tylenol Tab) 650 mg Q6H PRN GTB PAIN LEVEL 1-10/10 Last administered on 02/19/19at 21:49; Admin Dose 650 MG; Start 02/19/19 at 03:30 Amlodipine Besylate (Norvasc) 5 mg BID GTB Last administered on 03/03/19 09:04; Admin Dose 5 MG; Start 02/19/19 at 09:00 Ascorbic Acid (Vitamin C) 500 mg DAILY GTB Last administered on 03/03/19 09:02; Admin Dose 500 MG; Start 02/19/19 at 09:00 Aspirin (Aspirin) 81 mg DAILY GTB Last administered on 02/26/19 10:20; Admin Dose 81 MG; Start 02/19/19 at 09:00; Status Hold Atorvastatin Calcium (Lipitor) 40 mg QHS GTB Last administered on 03/02/19 20:49; Admin Dose 40 MG; Start 02/19/19 at 21:00 Ferrous Sulfate (Ferrous Sulfate (Ec)) 325 mg BID PO Last administered on 03/03/19 09:03; Admin Dose 325 MG; Start 02/19/19 at 09:00 Folic Acid (Folic Acid) 1 mg DAILY GTB Last administered on 03/03/19 09:03; Admin Dose 1 MG; Start 02/19/19 at 09:00 Hydralazine HCl (Apresoline) 25 mg Q8 GTB Last administered on 03/03/19 14:57; Admin Dose 25 MG; Start 02/19/19 at 06:00 Linagliptin (Tradjenta) 5 mg DAILY GTB Last administered on 03/03/19 09:02; Admin Dose 5 MG; Start 02/19/19 at 09:00 Lorazepam (Ativan) 0.5 mg HS PRN GTB ANXIETY Last administered on 02/28/19 21:43; Admin Dose 0.5 MG; Start 02/19/19 at 03:30 Metoprolol Tartrate (Lopressor) 50 mg BID GTB Last administered on 03/03/19 09:05; Admin Dose 50 MG; Start 02/19/19 at 09:00 Ondansetron HCl (Zofran Tab) 4 mg Q4H PRN GTB NAUSEA AND/OR VOMITING; Start 02/19/19 at 03:30 Valproate Sodium (Depakene Liquid Cup) 250 mg Q8 GTB Last administered on 03/03/19 14:57; Admin Dose 250 MG; Start 02/19/19 at 06:00 Docusate Sodium (Colace Liquid Cup) 100 mg DAILY GTB Last administered on 03/03/19 09:03; Admin Dose 100 MG; Start 02/19/19 at 09:00 Docusate Sodium (Colace Liquid Cup) 100 mg Q12H PRN GTB CONSTIPATION; Start 02/19/19 at 04:00 Acetaminophen (Tylenol Tab) 650 mg Q6H PRN GTB .PAIN 1-3 OR TEMP Last administered on 02/19/19 11:57; Admin Dose 650 MG; Start 02/19/19 at 03:35 Mupirocin (Bactroban) 1 applic BID TOP Last administered on 03/03/19 09:06; Admin Dose 1 APPLIC; Start 02/22/19 at 14:00 Ampicillin 50 ml @ 100 mls/hr Q8 IVPB Last administered on 03/03/19 14:57; Admin Dose 100 MLS/HR; Start 02/24/19 at 14:00 Voriconazole (Vfend) 200 mg BID PO Last administered on 03/03/19 09:03; Admin Dose 200 MG; Start 02/24/19 at 21:00 Insulin Glargine (Lantus) 4 units DAILY@2000 SC Last administered on 03/02/19 20:59; Admin Dose 4 UNITS; Start 02/26/19 at 20:00 Epoetin Michael-epbx (Retacrit (Esrd)) 4,000 unit MoWeFr@1700 SC Last administered on 03/02/19 18:17; Admin Dose 4,000 UNIT; Start 02/28/19 at 17:00 Olanzapine (Zyprexa) 2.5 mg DAILY GTB Last administered on 03/03/19 09:50; Admin Dose 2.5 MG; Start 03/01/19 at 09:00 Lansoprazole (Prevacid) 30 mg BID@0600,1800 GTB Last administered on 03/03/19 06:35; Admin Dose 30 MG; Start 02/28/19 at 18:00 PHYLICIA HOLCOMB NP Mar 03, 2019 15:14
--- NOTE | 2019-03-03 16:46 | CONS ---
Assessment/Plan Assessment/Plan Assessment/Plan (Daily) 1. Fevers, likely secondary to kaylah urinary tract infection, now bld cx positive gram + Entercoccus sp permacath exchange 2. End-stage renal disease on hemodialysis. 3. Urinary tract infection. 4. Hypertension. 5. Dementia. 6. Diabetes mellitus type II. 7. Diastolic heart failure. 8. Moderate protein energy malnutrition with cachexia. 9. Osteoarthritis. 10. GT status Assessment/Plan (Daily) - HD MWF , HD tmw -Repeat blood cultures have been negative so far -IV antibiotics per ID - renally dose all meds Consultation Date/Type/Reason Admit Date/Time Feb 19, 2019 at 01:01 Initial Consult Date Requesting Provider: JILLIAN HOLLAND MD Date/Time of Note DATE: 03/03/19 TIME: 16:45 24 HR Interval Summary Free Text/Dictation No acute events. No fevers, white count has improved Exam/Review of Systems Exam Vitals Vital Signs Date Temp Pulse Resp B/P (MAP) Pulse Ox O2 O2 Flow FiO2 Time Delivery Rate 03/03/19 83 16:26 03/03/19 98.0 18 131/60 94 14:18 (83) 03/02/19 Room Air 12:59 Intake and Output 03/02/19 03/02/19 03/03/19 1515:00 23:00 07:00 IntakeIntake Total 760 ml 660 ml OutputOutput Total 1500 ml BalanceBalance -1500 ml 760 ml 660 ml Exam xam hest Permcath no bleeding today Constitutional: alert, frail Head: normocephalic Neck: supple Respiratory: diminished breath sounds Gastrointestinal: soft, other (GT ) Results Result Diagram: 03/03/19 0601 03/03/19 06 Results 24hrs Laboratory Tests Test 03/02/19 20:48 03/03/19 02:32 03/03/19 06:01 03/03/19 09:01 Bedside Glucose 168 157 171 White Blood Count 8.9 # Red Blood Count 3.15 L Hemoglobin 8.5 L Hematocrit 27.2 L Mean Corpuscular 86.3 Volume Mean Corpuscular 27.0 L Hemoglobin Mean Corpuscular 31.3 L Hemoglobin Concent Red Cell 16.5 H Distribution Width Platelet Count 273 Mean Platelet Volume 11.1 H Immature 1.200 H Granulocytes % Neutrophils % 76.3 Lymphocytes % 9.0 L Monocytes % 11.1 H Eosinophils % 2.1 Basophils % 0.3 Nucleated Red Blood 1.1 H Cells % Immature 0.110 H Granulocytes # Neutrophils # 6.7 Lymphocytes # 0.8 Monocytes # 1.0 H Eosinophils # 0.2 Basophils # 0.0 Nucleated Red Blood 0.1 H Cells # Sodium Level 133 L Potassium Level 3.7 Chloride Level 97 Carbon Dioxide Level 32 H Anion Gap 4 L Blood Urea Nitrogen 35 #H Creatinine 1.32 H Est Glomerular Filtrat Rate mL/min Glucose Level 133 Calcium Level 7.8 L Phosphorus Level 3.0 Magnesium Level 2.5 Medications Medication Current Medications IV Flush (NS 3 ml) 3 ml PER PROTOCOL IV ; Start 02/19/19 at 03:30 Lorazepam (Ativan) 0.5 mg Q8H PRN GTB .ANXIETY Last administered on 03/02/19 06:13; Admin Dose 0.5 MG; Start 02/19/19 at 03:30 Ondansetron HCl (Zofran Inj) 4 mg Q6H PRN IV NAUSEA/VOMITING; Start 02/19/19 at 03:30 Acetaminophen (Tylenol Tab) 325 mg Q4H PRN GTB FOR FEVER 100AND ABOVE Last administered on 02/20/19 20:13; Admin Dose 325 MG; Start 02/19/19 at 03:30 Acetaminophen (Tylenol Tab) 650 mg Q6H PRN GTB PAIN LEVEL 1-10/10 Last administered on 02/19/19 21:49; Admin Dose 650 MG; Start 02/19/19 at 03:30 Amlodipine Besylate (Norvasc) 5 mg BID GTB Last administered on 03/03/19 09:04; Admin Dose 5 MG; Start 02/19/19 at 09:00 Ascorbic Acid (Vitamin C) 500 mg DAILY GTB Last administered on 03/03/19 09:02; Admin Dose 500 MG; Start 02/19/19 at 09:00 Aspirin (Aspirin) 81 mg DAILY GTB Last administered on 02/26/19 10:20; Admin Dose 81 MG; Start 02/19/19 at 09:00; Status Hold Atorvastatin Calcium (Lipitor) 40 mg QHS GTB Last administered on 03/02/19 20:49; Admin Dose 40 MG; Start 02/19/19 at 21:00 Ferrous Sulfate (Ferrous Sulfate (Ec)) 325 mg BID PO Last administered on 03/03/19 09:03; Admin Dose 325 MG; Start 02/19/19 at 09:00 Folic Acid (Folic Acid) 1 mg DAILY GTB Last administered on 03/03/19 09:03; Admin Dose 1 MG; Start 02/19/19 at 09:00 Hydralazine HCl (Apresoline) 25 mg Q8 GTB Last administered on 03/03/19 14:57; Admin Dose 25 MG; Start 02/19/19 at 06:00 Linagliptin (Tradjenta) 5 mg DAILY GTB Last administered on 03/03/19 09:02; Ad min Dose 5 MG; Start 02/19/19 at 09:00 Lorazepam (Ativan) 0.5 mg HS PRN GTB ANXIETY Last administered on 02/28/19 21:43; Admin Dose 0.5 MG; Start 02/19/19 at 03:30 Metoprolol Tartrate (Lopressor) 50 mg BID GTB Last administered on 03/03/19 09:05; Admin Dose 50 MG; Start 02/19/19 at 09:00 Ondansetron HCl (Zofran Tab) 4 mg Q4H PRN GTB NAUSEA AND/OR VOMITING; Start 02/19/19 at 03:30 Valproate Sodium (Depakene Liquid Cup) 250 mg Q8 GTB Last administered on 03/03/19 14:57; Admin Dose 250 MG; Start 02/19/19 at 06:00 Docusate Sodium (Colace Liquid Cup) 100 mg DAILY GTB Last administered on 09:03; Admin Dose 100 MG; Start 02/19/19 at 09:00 Docusate Sodium (Colace Liquid Cup) 100 mg Q12H PRN GTB CONSTIPATION; Start 02/19/19 at 04:00 Acetaminophen (Tylenol Tab) 650 mg Q6H PRN GTB .PAIN 1-3 OR TEMP Last administered on 02/19/19 11:57; Admin Dose 650 MG; Start 02/19/19 at 03:35 Mupirocin (Bactroban) 1 applic BID TOP Last administered on 03/03/19 09:06; Admin Dose 1 APPLIC; Start 02/22/19 at 14:00 Ampicillin 50 ml @ 100 mls/hr Q8 IVPB Last administered on 03/03/19 14:57; Admin Dose 100 MLS/HR; Start 02/24/19 at 14:00 Voriconazole (Vfend) 200 mg BID PO Last administered on 03/03/19 09:03; Admin Dose 200 MG; Start 02/24/19 at 21:00 Insulin Glargine (Lantus) 4 units DAILY@2000 SC Last administered on 03/02/19 20:59; Admin Dose 4 UNITS; Start 02/26/19 at 20:00 Epoetin Michael-epbx (Retacrit (Esrd)) 4,000 unit MoWeFr@1700 SC Last administered on 03/02/19 18:17; Admin Dose 4,000 UNIT; Start 02/28/19 at 17:00 Olanzapine (Zyprexa) 2.5 mg DAILY GTB Last administered on 03/03/19 09:50; Admin Dose 2.5 MG; Start 03/01/19 at 09:00 Lansoprazole (Prevacid) 30 mg BID@0600,1800 GTB Last administered on 03/03/19 06:35; Admin Dose 30 MG; Start 02/28/19 at 18:00 JOSE RAUL ANDREWS MD Mar 03, 2019 16:46
[2019-03-03] MEDS: ATORVASTATIN 40 MG TAB GTB SCH (20:26)
[2019-03-03] MEDS: INSULIN GLARGINE [LANTus] (100 UNITS/ML) SYG SC SCH (20:55)
[2019-03-03] MEDS: LORAZEPAM 0.5 MG TAB GTB PRN (21:51)
[2019-03-04] VITALS (31 sets, daily range): BP systolic 123–177; BP diastolic 59–76; PULSE 80–104; RESP 18–20
[2019-03-04] MEDS: LORAZEPAM 0.5 MG TAB GTB PRN (01:18)
[2019-03-04] MEDS: AMPICILLIN 1 GM/NS (PMX) 50 ML IVPB SCH ×2 (05:27→13:06)
[2019-03-04] MEDS: VALPROIC ACID LIQUID CUP 250 MG/5 ML CUP GTB SCH ×3 (05:27→20:59)
[2019-03-04] MEDS: LANSOPRAZOLE 30 MG CAP GTB SCH ×2 (05:34→17:23)
--- NOTE | 2019-03-04 07:45 | CONS ---
Assessment/Plan Assessment/Plan Hospital Course (Demo Recall) 83 yo female presented with severe anemia 1. Severe anemia,acute on chronic -GI bleed vs chronic disease -stable -retic 2.6, ferritin 4490, neg FOB 2. End-stage renal disease on dialysis. 3. Urinary tract infection. -positive yeast 4. Dysphagia, status post percutaneous endoscopic gastrostomy tube placement. 5. Hypertension. 6. Behavioral disorder. PLAN: Monitor HH Hold all anti coagulants PPI BID If GI bleeding, noted positive FOB, we will consider push endoscopy Pt examined and plan of care discussed with Dr. Baird. Consultation Date/Type/Reason Admit Date/Time Feb 19, 2019 at 01:01 Initial Consult Date Requesting Provider: JILLIAN HOLLNAD MD Date/Time of Note DATE: 03/04/19 TIME: 07:43 Exam/Review of Systems Exam Vitals Vital Signs Date Temp Pulse Resp B/P (MAP) Pulse Ox O2 O2 Flow FiO2 Time Delivery Rate 03/04/19 98.7 100 20 129/61 94 06:00 (83) 03/04/19 Room Air 02:00 Intake and Output 03/03/19 03/03/19 03/04/19 1414:59 22:59 06:59 IntakeIntake Total 50 ml 710 ml 410 ml BalanceBalance 50 ml 710 ml 410 ml Constitutional: alert Psych: no complaints Head: normocephalic ENMT: mucosa pink and moist Respiratory: clear to auscultation Cardiovascular: regular rate and rhythm Gastrointestinal: soft, non-tender Musculoskeletal: muscle weakness 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: confused Results Result Diagram: 03/04/19 0534 03/04/19 0534 Results 24hrs Laboratory Tests Test 03/03/19 09:01 03/03/19 20:25 03/04/19 01:34 03/04/19 05:34 Bedside Glucose 171 136 166 White Blood Count 12.9 #H Red Blood Count 3.13 L Hemoglobin 8.5 L Hematocrit 26.8 L Mean Corpuscular 85.6 Volume Mean Corpuscular 27.2 L Hemoglobin Mean Corpuscular 31.7 L Hemoglobin Concent Red Cell 16.1 H Distribution Width Platelet Count 321 Mean Platelet Volume 11.3 H Immature 1.300 H Granulocytes % Neutrophils % 76.4 Lymphocytes % 9.2 L Monocytes % 11.8 H Eosinophils % 1.1 Basophils % 0.2 Nucleated Red Blood 0.5 H Cells % Immature 0.170 H Granulocytes # Neutrophils # 9.8 H Lymphocytes # 1.2 Monocytes # 1.5 H Eosinophils # 0.1 Basophils # 0.0 Nucleated Red Blood 0.1 H Cells # Sodium Level 134 L Potassium Level 3.7 Chloride Level 96 L Carbon Dioxide Level 31 Anion Gap 7 Blood Urea Nitrogen 56 H Creatinine 1.91 H Est Glomerular Filtrat Rate mL/min Glucose Level 136 Calcium Level 8.4 Phosphorus Level 3.8 Magnesium Level 2.7 H Medications Medication Current Medications IV Flush (NS 3 ml) 3 ml PER PROTOCOL IV ; Start 02/19/19 at 03:30 Lorazepam (Ativan) 0.5 mg Q8H PRN GTB .ANXIETY Last administered on 03/04/19 01:18; Admin Dose 0.5 MG; Start 02/19/19 at 03:30 Ondansetron HCl (Zofran Inj) 4 mg Q6H PRN IV NAUSEA/VOMITING; Start 02/19/19 at 03:30 Acetaminophen (Tylenol Tab) 325 mg Q4H PRN GTB FOR FEVER 100AND ABOVE Last administered on 02/20/19 20:13; Admin Dose 325 MG; Start 02/19/19 at 03:30 Acetaminophen (Tylenol Tab) 650 mg Q6H PRN GTB PAIN LEVEL 1-10/10 Last administered on 02/19/19 21:49; Admin Dose 650 MG; Start 02/19/19 at 03:30 Amlodipine Besylate (Norvasc) 5 mg BID GTB Last administered on 03/03/19 20:28; Admin Dose 5 MG; Start 02/19/19 at 09:00 Ascorbic Acid (Vitamin C) 500 mg DAILY GTB Last administered on 03/03/19 09:02; Admin Dose 500 MG; Start 02/19/19 at 09:00 Aspirin (Aspirin) 81 mg DAILY GTB Last administered on 02/26/19 10:20; Admin Dose 81 MG; Start 02/19/19 at 09:00; Status Hold Atorvastatin Calcium (Lipitor) 40 mg QHS GTB Last administered on 03/03/19 20:26; Admin Dose 40 MG; Start 02/19/19 at 21:00 Ferrous Sulfate (Ferrous Sulfate (Ec)) 325 mg BID PO Last administered on 03/03/19 20:26; Admin Dose 325 MG; Start 02/19/19 at 09:00 Folic Acid (Folic Acid) 1 mg DAILY GTB Last administered on 03/03/19 09:03; Admin Dose 1 MG; Start 02/19/19 at 09:00 Hydralazine HCl (Apresoline) 25 mg Q8 GTB Last administered on 03/04/19 05:28; Admin Dose 25 MG; Start 02/19/19 at 06:00 Linagliptin (Tradjenta) 5 mg DAILY GTB Last administered on 03/03/19 09:02; Admin Dose 5 MG; Start 02/19/19 at 09:00 Lorazepam (Ativan) 0.5 mg HS PRN GTB ANXIETY Last administered on 03/03/19 21:51; Admin Dose 0.5 MG; Start 02/19/19 at 03:30 Metoprolol Tartrate (Lopressor) 50 mg BID GTB Last administered on 03/03/19 20:28; Admin Dose 50 MG; Start 02/19/19 at 09:00 Ondansetron HCl (Zofran Tab) 4 mg Q4H PRN GTB NAUSEA AND/OR VOMITING; Start 02/19/19 at 03:30 Valproate Sodium (Depakene Liquid Cup) 250 mg Q8 GTB Last administered on 03/04/19 05:27; Admin Dose 250 MG; Start 02/19/19 at 06:00 Docusate Sodium (Colace Liquid Cup) 100 mg DAILY GTB Last administered on 03/03/19 09:03; Admin Dose 100 MG; Start 02/19/19 at 09:00 Docusate Sodium (Colace Liquid Cup) 100 mg Q12H PRN GTB CONSTIPATION; Start 02/19/19 at 04:00 Acetaminophen (Tylenol Tab) 650 mg Q6H PRN GTB .PAIN 1-3 OR TEMP Last ad ministered on 02/19/19 11:57; Admin Dose 650 MG; Start 02/19/19 at 03:35 Mupirocin (Bactroban) 1 applic BID TOP Last administered on 03/03/19 20:29; Admin Dose 1 APPLIC; Start 02/22/19 at 14:00 Ampicillin 50 ml @ 100 mls/hr Q8 IVPB Last administered on 03/04/19 05:27; Admin Dose 100 MLS/HR; Start 02/24/19 at 14:00 Voriconazole (Vfend) 200 mg BID PO Last administered on 03/03/19 20:27; Admin Dose 200 MG; Start 02/24/19 at 21:00 Insulin Glargine (Lantus) 4 units DAILY@2000 SC Last administered on 03/03/19 20:55; Admin Dose 4 UNITS; Start 02/26/19 at 20:00 Epoetin Michael-epbx (Retacrit (Esrd)) 4,000 unit MoWeFr@1700 SC Last administered on 03/02/19 18:17; Admin Dose 4,000 UNIT; Start 02/28/19 at 17:00 Olanzapine (Zyprexa) 2.5 mg DAILY GTB Last administered on 03/03/19 09:50; Admin Dose 2.5 MG; Start 03/01/19 at 09:00 Lansoprazole (Prevacid) 30 mg BID@0600,1800 GTB Last administered on 03/04/19 05:34; Admin Dose 30 MG; Start 02/28/19 at 18:00 TONY VENCES Mar 04, 2019 07:45
[2019-03-04] MEDS: AMLODIPINE 5 MG TAB GTB SCH ×2 (08:56→20:59)
[2019-03-04] MEDS: FOLIC ACID 1 MG TAB GTB SCH (08:56)
[2019-03-04] MEDS: LINAGLIPTIN 5 MG TABLET GTB SCH (08:57)
[2019-03-04] MEDS: VORICONAZOLE 200 MG TAB PO SCH (08:57)
[2019-03-04] MEDS: FERROUS SULFATE (EC) 325 MG TAB PO SCH ×2 (08:57→21:00)
[2019-03-04] MEDS: OLANZAPINE 2.5 MG TAB GTB SCH (08:57)
[2019-03-04] MEDS: ASCORBIC ACID 500 MG TAB GTB SCH (08:57)
[2019-03-04] MEDS: METOPROLOL 50 MG TAB GTB SCH ×2 (08:57→20:59)
[2019-03-04] MEDS: MUPIROCIN 2% 22 GM OINT TOP SCH ×2 (08:58→21:00)
[2019-03-04] MEDS: DOCUSATE SODIUM 10 MG/ML (10ML CUP) GTB SCH (08:58)
--- NOTE | 2019-03-04 13:03 | CONS ---
Assessment/Plan Assessment/Plan Hospital Course (Demo Recall) 1. Fevers, likely secondary to urinary tract infection, now bld cx positive gram + Entercoccus 2. End-stage renal disease on hemodialysis. 3. Urinary tract infection. 4. Hypertension. 5. Dementia. 6. Diabetes mellitus type II. 7. Diastolic heart failure. 8. Moderate protein energy malnutrition with cachexia. 9. Osteoarthritis. 10. GT status 11. Anemia of chronic disease Assessment/Plan (Daily) -no bleeding from HD cath -c/w HD, one was done today -Left Chest Perm cath func. -c/w epoetin 3 times a week Consultation Date/Type/Reason Admit Date/Time Feb 19, 2019 at 01:01 Initial Consult Date 02/19/2019 Type of Consult nephrology Requesting Provider: JILLIAN HOLLAND MD Date/Time of Note DATE: 03/04/19 TIME: 13:01 24 HR Interval Summary Constitutional: no complaints Exam/Review of Systems Exam Vitals Vital Signs Date Temp Pulse Resp B/P (MAP) Pulse Ox O2 O2 Flow FiO2 Time Delivery Rate 03/04/19 87 12:40 03/04/19 18 158/60 91 Room Air 12:00 (92) 03/04/19 97.8 12:00 Intake and Output 03/03/19 03/03/19 03/04/19 1515:00 23:00 07:00 IntakeIntake Total 50 ml 710 ml 410 ml BalanceBalance 50 ml 710 ml 410 ml Exam left chest Perm cath Constitutional: frail Head: normocephalic Eyes: nl conjunctiva Neck: supple Respiratory: diminished breath sounds Cardiovascular: regular rate and rhythm Gastrointestinal: soft Musculoskeletal: muscle weakness Results Result Diagram: 03/04/19 0534 03/04/19 0534 Results 24hrs Laboratory Tests Test 03/03/19 20:25 03/04/19 01:34 03/04/19 05:34 Bedside Glucose 136 166 White Blood Count 12.9 #H Red Blood Count 3.13 L Hemoglobin 8.5 L Hematocrit 26.8 L Mean Corpuscular Volume 85.6 Mean Corpuscular Hemoglobin 27.2 L Mean Corpuscular Hemoglobin Concent 31.7 L Red Cell Distribution Width 16.1 H Platelet Count 321 Mean Platelet Volume 11.3 H Immature Granulocytes % 1.300 H Neutrophils % 76.4 Lymphocytes % 9.2 L Monocytes % 11.8 H Eosinophils % 1.1 Basophils % 0.2 Nucleated Red Blood Cells % 0.5 H Immature Granulocytes # 0.170 H Neutrophils # 9.8 H Lymphocytes # 1.2 Monocytes # 1.5 H Eosinophils # 0.1 Basophils # 0.0 Nucleated Red Blood Cells # 0.1 H Sodium Level 134 L Potassium Level 3.7 Chloride Level 96 L Carbon Dioxide Level 31 Anion Gap 7 Blood Urea Nitrogen 56 H Creatinine 1.91 H Est Glomerular Filtrat Rate mL/min Glucose Level 136 Calcium Level 8.4 Phosphorus Level 3.8 Magnesium Level 2.7 H Medications Medication Current Medications IV Flush (NS 3 ml) 3 ml PER PROTOCOL IV ; Start 02/19/19 at 03:30 Lorazepam (Ativan) 0.5 mg Q8H PRN GTB .ANXIETY Last administered on 03/04/19 01:18; Admin Dose 0.5 MG; Start 02/19/19 at 03:30 Ondansetron HCl (Zofran Inj) 4 mg Q6H PRN IV NAUSEA/VOMITING; Start 02/19/19 at 03:30 Acetaminophen (Tylenol Tab) 325 mg Q4H PRN GTB FOR FEVER 100AND ABOVE Last administered on 02/20/19 20:13; Admin Dose 325 MG; Start 02/19/19 at 03:30 Acetaminophen (Tylenol Tab) 650 mg Q6H PRN GTB PAIN LEVEL 1-10/10 Last administered on 02/19/19 21:49; Admin Dose 650 MG; Start 02/19/19 at 03:30 Amlodipine Besylate (Norvasc) 5 mg BID GTB Last administered on 03/03/19 20:28; Admin Dose 5 MG; Start 02/19/19 at 09:00 Ascorbic Acid (Vitamin C) 500 mg DAILY GTB Last administered on 03/04/19 08 :57; Admin Dose 500 MG; Start 02/19/19 at 09:00 Aspirin (Aspirin) 81 mg DAILY GTB Last administered on 02/26/19 10:20; Admin Dose 81 MG; Start 02/19/19 at 09:00; Status Hold Atorvastatin Calcium (Lipitor) 40 mg QHS GTB Last administered on 03/03/19 20:26; Admin Dose 40 MG; Start 02/19/19 at 21:00 Ferrous Sulfate (Ferrous Sulfate (Ec)) 325 mg BID PO Last administered on 03/04/19 08:57; Admin Dose 325 MG; Start 02/19/19 at 09:00 Folic Acid (Folic Acid) 1 mg DAILY GTB Last administered on 03/04/19 08:56; Admin Dose 1 MG; Start 02/19/19 at 09:00 Hydralazine HCl (Apresoline) 25 mg Q8 GTB Last administered on 03/04/19 05:28; Admin Dose 25 MG; Start 02/19/19 at 06:00 Linagliptin (Tradjenta) 5 mg DAILY GTB Last administered on 03/04/19 08:57; Admin Dose 5 MG; Start 02/19/19 at 09:00 Lorazepam (Ativan) 0.5 mg HS PRN GTB ANXIETY Last administered on 03/03/19 21:51; Admin Dose 0.5 MG; Start 02/19/19 at 03:30 Metoprolol Tartrate (Lopressor) 50 mg BID GTB Last administered on 03/04/19 08:57; Admin Dose 50 MG; Start 02/19/19 at 09:00 Ondansetron HCl (Zofran Tab) 4 mg Q4H PRN GTB NAUSEA AND/OR VOMITING; Start 02/19/19 at 03:30 Valproate Sodium (Depakene Liquid Cup) 250 mg Q8 GTB Last administered on 03/04/19 05:27; Admin Dose 250 MG; Start 02/19/19 at 06:00 Docusate Sodium (Colace Liquid Cup) 100 mg DAILY GTB Last administered on 03/04/19 08:58; Admin Dose 100 MG; Start 02/19/19 at 09:00 Docusate Sodium (Colace Liquid Cup) 100 mg Q12H PRN GTB CONSTIPATION; Start 02/19/19 at 04:00 Acetaminophen (Tylenol Tab) 650 mg Q6H PRN GTB .PAIN 1-3 OR TEMP Last administered on 02/19/19 11:57; Admin Dose 650 MG; Start 02/19/19 at 03:35 Mupirocin (Bactroban) 1 applic BID TOP Last administered on 03/04/19 08:58; Admin Dose 1 APPLIC; Start 02/22/19 at 14:00 Ampicillin 50 ml @ 100 mls/hr Q8 IVPB Last administered on 03/04/19 05:27; Admin Dose 100 MLS/HR; Start 02/24/19 at 14:00 Voriconazole (Vfend) 200 mg BID PO Last administered on 03/04/19 08:57; Admin Dose 200 MG; Start 02/24/19 at 21:00 Insulin Glargine (Lantus) 4 units DAILY@2000 SC Last administered on 03/03/19 20:55; Admin Dose 4 UNITS; Start 02/26/19 at 20:00 Epoetin Michael-epbx (Retacrit (Esrd)) 4,000 unit MoWeFr@1700 SC Last administered on 03/02/19 18:17; Admin Dose 4,000 UNIT; Start 02/28/19 at 17:00 Olanzapine (Zyprexa) 2.5 mg DAILY GTB Last administered on 03/04/19 08:57; Admin Dose 2.5 MG; Start 03/01/19 at 09:00 Lansoprazole (Prevacid) 30 mg BID@0600,1800 GTB Last administered on 03/04/19 05:34; Admin Dose 30 MG; Start 02/28/19 at 18:00 FLAVIO CLAYTON Mar 04, 2019 13:03
--- NOTE | 2019-03-04 13:36 | PDOCDIS ---
Discharge Instructions CONDITION [id number] Patient Condition: [id number] Stable FOLLOW UP/APPOINTMENTS Follow-up Plan [facility] DYLON WALLS MD Mar 04, 2019 13:36
--- NOTE | 2019-03-04 15:21 | CONS ---
Assessment/Plan Assessment/Plan Hospital Course (Demo Recall) No acute events overnight. Patient is in no distress looks comfortable and afebrile. Per dw RN she did not have any urinary retention. Antimicrobials: Vfend, IV ampicillin Indwelling: Left subclavian permacath, PEG Microbiology: Urine culture on admission grew Dominique glabrata, blood culture grew Enterococcus Chest x-ray on admission revealed no definite evidence of pneumonia or CHF Physical examination: This is a chronically ill-appearing wasted elderly woman who is in no distress. Head atraumatic normocephalic. Neck is supple. Chest rise symmetrical breath sounds clear, diminished bases. Heart: S1-S2. Abdomen soft bowel sounds present. Extremities without cyanosis edema. Assessment: 1. S/p sepsis, present on admission 2. Recurrent UTI 3. Bacteremia, rule out infected line 4. End-stage renal disease, hemodialysis dependent 5. Anemia 6. 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 Plan: Clinically stable, dc Vfend. Last dose of Ampicillin is March 09 Consultation Date/Type/Reason Admit Date/Time Feb 19, 2019 at 01:01 Initial Consult Date Type of Consult id Requesting Provider: JILLIAN HOLLAND MD Date/Time of Note DATE: 03/04/19 TIME: 15:19 Exam/Review of Systems Exam Vitals Vital Signs Date Temp Pulse Resp B/P (MAP) Pulse Ox O2 O2 Flow FiO2 Time Delivery Rate 03/04/19 98.1 94 19 153/67 95 14:00 (95) 03/04/19 Room Air 12:00 Intake and Output 03/03/19 03/03/19 03/04/19 1515:00 23:00 07:00 IntakeIntake Total 50 ml 710 ml 410 ml BalanceBalance 50 ml 710 ml 410 ml Results Result Diagram: 03/04/19 0534 03/04/19 0534 Results 24hrs Laboratory Tests Test 03/03/19 20:25 03/04/19 01:34 03/04/19 05:34 Bedside Glucose 136 166 White Blood Count 12.9 #H Red Blood Count 3.13 L Hemoglobin 8.5 L Hematocrit 26.8 L Mean Corpuscular Volume 85.6 Mean Corpuscular Hemoglobin 27.2 L Mean Corpuscular Hemoglobin Concent 31.7 L Red Cell Distribution Width 16.1 H Platelet Count 321 Mean Platelet Volume 11.3 H Immature Granulocytes % 1.300 H Neutrophils % 76.4 Lymphocytes % 9.2 L Monocytes % 11.8 H Eosinophils % 1.1 Basophils % 0.2 Nucleated Red Blood Cells % 0.5 H Immature Granulocytes # 0.170 H Neutrophils # 9.8 H Lymphocytes # 1.2 Monocytes # 1.5 H Eosinophils # 0.1 Basophils # 0.0 Nucleated Red Blood Cells # 0.1 H Sodium Level 134 L Potassium Level 3.7 Chloride Level 96 L Carbon Dioxide Level 31 Anion Gap 7 Blood Urea Nitrogen 56 H Creatinine 1.91 H Est Glomerular Filtrat Rate mL/min Glucose Level 136 Calcium Level 8.4 Phosphorus Level 3.8 Magnesium Level 2.7 H Medications Medication Current Medications IV Flush (NS 3 ml) 3 ml PER PROTOCOL IV ; Start 02/19/19 at 03:30 Lorazepam (Ativan) 0.5 mg Q8H PRN GTB .ANXIETY Last administered on 03/04/19 01:18; Admin Dose 0.5 MG; Start 02/19/19 at 03:30 Ondansetron HCl (Zofran Inj) 4 mg Q6H PRN IV NAUSEA/VOMITING; Start 02/19/19 at 03:30 Acetaminophen (Tylenol Tab) 325 mg Q4H PRN GTB FOR FEVER 100AND ABOVE Last administered on 02/20/19 20:13; Admin Dose 325 MG; Start 02/19/19 at 03:30 Acetaminophen (Tylenol Tab) 650 mg Q6H PRN GTB PAIN LEVEL 1-10/10 Last administered on 02/19/19 21:49; Admin Dose 650 MG; Start 02/19/19 at 03:30 Amlodipine Besylate (Norvasc) 5 mg BID GTB Last administered on 03/03/19 20:28; Admin Dose 5 MG; Start 02/19/19 at 09:00 Ascorbic Acid (Vitamin C) 500 mg DAILY GTB Last administered on 03/04/19 08:57; Admin Dose 500 MG; Start 02/19/19 at 09:00 Aspirin (Aspirin) 81 mg DAILY GTB Last administered on 02/26/19 10:20; Admin Dose 81 MG; Start 02/19/19 at 09:00; Status Hold Atorvastatin Calcium (Lipitor) 40 mg QHS GTB Last administered on 03/03/19 20:26; Admin Dose 40 MG; Start 02/19/19 at 21:00 Ferrous Sulfate (Ferrous Sulfate (Ec)) 325 mg BID PO Last administered on 03/04/19 08:57; Admin Dose 325 MG; Start 02/19/19 at 09:00 Folic Acid (Folic Acid) 1 mg DAILY GTB Last administered on 03/04/19 08:56; Admin Dose 1 MG; Start 02/19/19 at 09:00 Hydralazine HCl (Apresoline) 25 mg Q8 GTB Last administered on 03/04/19 13:07; Admin Dose 25 MG; Start 02/19/19 at 06:00 Linagliptin (Tradjenta) 5 mg DAILY GTB Last administered on 03/04/19 08:57; Admin Dose 5 MG; Start 02/19/19 at 09:00 Lorazepam (Ativan) 0.5 mg HS PRN GTB ANXIETY Last administered on 03/03/19 21:51; Admin Dose 0.5 MG; Start 02/19/19 at 03:30 Metoprolol Tartrate (Lopressor) 50 mg BID GTB Last administered on 03/04/19 08 :57; Admin Dose 50 MG; Start 02/19/19 at 09:00 Ondansetron HCl (Zofran Tab) 4 mg Q4H PRN GTB NAUSEA AND/OR VOMITING; Start 02/19/19 at 03:30 Valproate Sodium (Depakene Liquid Cup) 250 mg Q8 GTB Last administered on 03/04/19 13:07; Admin Dose 250 MG; Start 02/19/19 at 06:00 Docusate Sodium (Colace Liquid Cup) 100 mg DAILY GTB Last administered on 03/04/19 08:58; Admin Dose 100 MG; Start 02/19/19 at 09:00 Docusate Sodium (Colace Liquid Cup) 100 mg Q12H PRN GTB CONSTIPATION; Start 02/19/19 at 04:00 Acetaminophen (Tylenol Tab) 650 mg Q6H PRN GTB .PAIN 1-3 OR TEMP Last administered on 02/19/19 11:57; Admin Dose 650 MG; Start 02/19/19 at 03:35 Mupirocin (Bactroban) 1 applic BID TOP Last administered on 03/04/19 08:58; Admin Dose 1 APPLIC; Start 02/22/19 at 14:00 Ampicillin 50 ml @ 100 mls/hr Q8 IVPB Last administered on 03/04/19 13:06; Admin Dose 100 MLS/HR; Start 02/24/19 at 14:00 Voriconazole (Vfend) 200 mg BID PO Last administered on 03/04/19 08:57; Admin Dose 200 MG; Start 02/24/19 at 21:00 Insulin Glargine (Lantus) 4 units DAILY@2000 SC Last administered on 03/03/19at 20:55; Admin Dose 4 UNITS; Start 02/26/19 at 20:00 Epoetin Michael-epbx (Retacrit (Esrd)) 4,000 unit MoWeFr@1700 SC Last administered on 03/02/19at 18:17; Admin Dose 4,000 UNIT; Start 02/28/19 at 17:00 Olanzapine (Zyprexa) 2.5 mg DAILY GTB Last administered on 03/04/19 08:57; Admin Dose 2.5 MG; Start 03/01/19 at 09:00 Lansoprazole (Prevacid) 30 mg BID@0600,1800 GTB Last administered on 03/04/19 05:34; Admin Dose 30 MG; Start 02/28/19 at 18:00 PHYLICIA HOLCOMB NP Mar 04, 2019 15:21
[2019-03-04] MEDS: EPOETIN ALFA-EPBX (ESRD) 4,000 UNIT/ML VIAL SC SCH (17:23)
--- NOTE | 2019-03-04 19:37 | DS ---
DATE OF ADMISSION: 02/19/2019 DATE OF DISCHARGE: 03/04/2019 REASON FOR ADMISSION: Urinary tract infection, fevers, anemia. HOSPITAL COURSE: The patient is a very unfortunate 83-year-old [place]ian female, very sick with histo ry of advanced dementia, end-stage renal disease on dialysis 3 times a week on Thursday, Thursday and Thursday; hypertension, diastolic dysfunction heart failure, diabetes mellitus type 2 with anxiety diso rder, arrhythmia, COPD, dysphagia, G-tube feeding and moderate to severe caloric-protein malnutrition and dysphagia. The patient has been hospitalized in the past 6 months, almost on 90% of time she wa s in the hospital, now presents with fevers. She was found in the ER to have urinary tract infection and she was started on antibiotics. Multiple physicians saw the patient during this hospitalization including Dr. Proctor, the infectious disease specialist, Dr. Baird, the GI specialist due to anemia , Dr. Juliocesar Stringer and Dr. Linda Andrews, the tank truck loader, Dr. Nova, the vascular surgeon. During her stay, she was placed on antibiotic initially with Merrem and then caspofungin as patient's urine culture showed Dominique glabrata. Blood culture showed Enterococcus species. This patient was place d on Zyvox. The patient has required dialysis 3 times a week. She received a unit of blood due to a nemia and GI was consulted as well. His initial hemoglobin was 6.6. Repeat blood cultures x2 were n egative. The last urine culture done 2 days ago is still pending. The patient is now afebrile and c linically stable, but overall in general, very sick, so she can continue the care at the [facility]. DISCHARGE MEDICATIONS: The patient can be discharged with the following medications: 1. Tylenol 650 q.6 p.r.n. for mild pain or a temperature greater than 100. 2. Norvasc 5 mg b.i.d. 3. Ampicillin 1 gram every 8 hours for 5 days. 4. Vitamin C 500 mg daily via G-tube. 5. Aspirin was discontinued due to GI bleed. 6. Atorvastatin 40 mg at bedtime. 7. Colace 100 b.i.d. 8. Ferrous sulfate 325 b.i.d. 9. Epogen 3 times a week. 10. Folic acid 1 mg daily. 11. Hydralazine 25 t.i.d. 12. Lantus 4 units at bedtime. 13. Prevacid 30 mg b.i.d. 14. Tradjenta 5 mg daily. 15. Ativan 0.5 q.8 p.r.n. and at night. 16. Metoprolol 50 mg b.i.d. 17. Bactroban ointment as directed. 18. Zyprexa, we will likely increase it to 5 mg daily. 19. Zofran 4 mg per G-tube q.6 p.r.n. 20. Depakote 250 q.8 hours. 21. Voriconazole 200 mg b.i.d. for 5 days. 22. Nephro-Roque 1 tab daily. FINAL DIAGNOSES: 1. Urinary tract infection. 2. Anemia, status post transfusion. Rule out gastrointestinal bleed. 3. Bacteremia. PermCath was exchanged to a new one. 4. History of vancomycin-resistant Enterococcus bacteremia and fungemia. 5. End-stage renal disease. 6. Anemia. 7. Vascular dementia. 8. Hypertension. 9. Sepsis present on admission. 10. Diabetes mellitus. 11. Osteoarthritis. 12. Chronic obstructive pulmonary disease. 13. Diastolic dysfunction heart failure. 14. Dysphagia. 15. G-tube feeding. 16. Moderate to severe caloric-protein malnutrition. 17. Status post multiple orthopedic surgeries. 18. The patient is high risk of aspiration, high risk of skin breakdown, high risk of fall. The patient has been monitored closely and also with restraints. Plan to discharge back to the [facility] with the above treatment plan. Follow up closely. Labs to be done on 03/07/2019 . Daughter was informed of the patient's overall condition throughout her stay intermittently. Long -term prognosis is guarded. The patient is DNR. Dictated By: DYLON HULL/MADAN Conf#: [id number] DID#: [id number] CC: LINDA ANDREWS;*EndCC*
[2019-03-04] MEDS: ATORVASTATIN 40 MG TAB GTB SCH (20:59)
[2019-03-04] MEDS: INSULIN GLARGINE [LANTus] (100 UNITS/ML) SYG SC SCH (21:51)
[2019-03-05] VITALS (9 sets, daily range): BP systolic 129–173; BP diastolic 60–73; PULSE 82–105; RESP 16–19
[2019-03-05] MEDS: AMPICILLIN 1 GM/NS (PMX) 50 ML IVPB SCH ×4 (00:25→22:45)
[2019-03-05] MEDS: LANSOPRAZOLE 30 MG CAP GTB SCH ×2 (06:17→17:26)
[2019-03-05] MEDS: DOCUSATE SODIUM 10 MG/ML (10ML CUP) GTB SCH (08:20)
[2019-03-05] MEDS: VALPROIC ACID LIQUID CUP 250 MG/5 ML CUP GTB SCH ×3 (08:24→22:44)
[2019-03-05] MEDS: METOPROLOL 50 MG TAB GTB SCH ×2 (08:25→21:53)
[2019-03-05] MEDS: ASCORBIC ACID 500 MG TAB GTB SCH (08:25)
[2019-03-05] MEDS: FOLIC ACID 1 MG TAB GTB SCH (08:25)
[2019-03-05] MEDS: LINAGLIPTIN 5 MG TABLET GTB SCH (08:25)
[2019-03-05] MEDS: AMLODIPINE 5 MG TAB GTB SCH ×2 (08:25→21:53)
[2019-03-05] MEDS: FERROUS SULFATE (EC) 325 MG TAB PO SCH ×2 (08:29→21:53)
[2019-03-05] MEDS: OLANZAPINE 2.5 MG TAB GTB SCH (09:34)
[2019-03-05] MEDS: MUPIROCIN 2% 22 GM OINT TOP SCH ×2 (09:34→21:54)
--- NOTE | 2019-03-05 14:59 | CONS ---
Assessment/Plan Assessment/Plan Hospital Course (Demo Recall) 1. Fevers, likely secondary to urinary tract infection, now bld cx positive gram + Entercoccus 2. End-stage renal disease on hemodialysis. 3. Urinary tract infection. 4. Hypertension. 5. Dementia. 6. Diabetes mellitus type II. 7. Diastolic heart failure. 8. Moderate protein energy malnutrition with cachexia. 9. Osteoarthritis. 10. GT status 11. Anemia of chronic disease Assessment/Plan (Daily) -no bleeding from HD cath -c/w HD, -a/b per ID -strict I and O -Left Chest Perm cath functioning. -c/w epoetin 3 times a week Consultation Date/Type/Reason Admit Date/Time Feb 19, 2019 at 01:01 Initial Consult Date 02/19/2019 Type of Consult nephrology Requesting Provider: JILLIAN HOLLAND MD Date/Time of Note DATE: 03/05/19 TIME: 14:58 24 HR Interval Summary Free Text/Dictation incoherent Exam/Review of Systems Exam Vitals Vital Signs Date Temp Pulse Resp B/P (MAP) Pulse Ox O2 O2 Flow FiO2 Time Delivery Rate 03/05/19 98.5 89 16 129/60 96 Room Air 14:00 (83) Intake and Output 03/04/19 03/04/19 03/05/19 1515:00 23:00 07:00 IntakeIntake Total 560 ml 100 ml OutputOutput Total 1400 ml BalanceBalance -1400 ml 560 ml 100 ml Exam left chest Peerm cath Constitutional: frail Psych: confusion Neck: supple Respiratory: normal air movement, diminished breath sounds Gastrointestinal: soft, other Results Result Diagram: 03/04/19 0534 03/04/19 0534 Results 24hrs Laboratory Tests Test 03/04/19 20:58 Bedside Glucose 192 Medications Medication Current Medications IV Flush (NS 3 ml) 3 ml PER PROTOCOL IV ; Start 02/19/19 at 03:30 Lorazepam (Ativan) 0.5 mg Q8H PRN GTB .ANXIETY Last administered on 03/04/19at 01:18; Admin Dose 0.5 MG; Start 02/19/19 at 03:30 Ondansetron HCl (Zofran Inj) 4 mg Q6H PRN IV NAUSEA/VOMITING; Start 02/19/19 at 03:30 Acetaminophen (Tylenol Tab) 325 mg Q4H PRN GTB FOR FEVER 100AND ABOVE Last administered on 02/20/19 20:13; Admin Dose 325 MG; Start 02/19/19 at 03:30 Acetaminophen (Tylenol Tab) 650 mg Q6H PRN GTB PAIN LEVEL 1-10/10 Last administered on 02/19/19 21:49; Admin Dose 650 MG; Start 02/19/19 at 03:30 Amlodipine Besylate (Norvasc) 5 mg BID GTB Last administered on 03/05/19 08:25; Admin Dose 5 MG; Start 02/19/19 at 09:00 Ascorbic Acid (Vitamin C) 500 mg DAILY GTB Last administered on 03/05/19 08:25; Admin Dose 500 MG; Start 02/19/19 at 09:00 Aspirin (Aspirin) 81 mg DAILY GTB Last administered on 02/26/19 10:20; Admin Dose 81 MG; Start 02/19/19 at 09:00; Status Hold Atorvastatin Calcium (Lipitor) 40 mg QHS GTB Last administered on 03/04/19 20:59; Admin Dose 40 MG; Start 02/19/19 at 21:00 Ferrous Sulfate (Ferrous Sulfate (Ec)) 325 mg BID PO Last administered on 03/05/19 08:29; Admin Dose 325 MG; Start 02/19/19 at 09:00 Folic Acid (Folic Acid) 1 mg DAILY GTB Last administered on 03/05/19 08:25; Ad min Dose 1 MG; Start 02/19/19 at 09:00 Hydralazine HCl (Apresoline) 25 mg Q8 GTB Last administered on 03/05/19 14:11; Admin Dose 25 MG; Start 02/19/19 at 06:00 Linagliptin (Tradjenta) 5 mg DAILY GTB Last administered on 03/05/19 08:25; Admin Dose 5 MG; Start 02/19/19 at 09:00 Lorazepam (Ativan) 0.5 mg HS PRN GTB ANXIETY Last administered on 03/03/19 21:51; Admin Dose 0.5 MG; Start 02/19/19 at 03:30 Metoprolol Tartrate (Lopressor) 50 mg BID GTB Last administered on 03/05/19 08:25; Admin Dose 50 MG; Start 02/19/19 at 09:00 Ondansetron HCl (Zofran Tab) 4 mg Q4H PRN GTB NAUSEA AND/OR VOMITING; Start 02/19/19 at 03:30 Valproate Sodium (Depakene Liquid Cup) 250 mg Q8 GTB Last administered on 03/05/19 14:11; Admin Dose 250 MG; Start 02/19/19 at 06:00 Docusate Sodium (Colace Liquid Cup) 100 mg DAILY GTB Last administered on 03/04/19 08:58; Admin Dose 100 MG; Start 02/19/19 at 09:00 Docusate Sodium (Colace Liquid Cup) 100 mg Q12H PRN GTB CONSTIPATION; Start 02/19/19 at 04:00 Acetaminophen (Tylenol Tab) 650 mg Q6H PRN GTB .PAIN 1-3 OR TEMP Last administered on 02/19/19 11:57; Admin Dose 650 MG; Start 02/19/19 at 03:35 Mupirocin (Bactroban) 1 applic BID TOP Last administered on 03/05/19 09:34; Admin Dose 1 APPLIC; Start 02/22/19 at 14:00 Ampicillin 50 ml @ 100 mls/hr Q8 IVPB Last administered on 03/05/19 14:11; Admin Dose 100 MLS/HR; Start 02/24/19 at 14:00 Insulin Glargine (Lantus) 4 units DAILY@2000 SC Last administered on 03/04/19 21:51; Admin Dose 4 UNITS; Start 02/26/19 at 20:00 Epoetin Michael-epbx (Retacrit (Esrd)) 4,000 unit MoWeFr@1700 SC Last administered on 03/04/19 17:23; Admin Dose 4,000 UNIT; Start 02/28/19 at 17:00 Olanzapine (Zyprexa) 2.5 mg DAILY GTB Last administered on 03/05/19 09:34; Admin Dose 2.5 MG; Start 03/01/19 at 09:00 Lansoprazole (Prevacid) 30 mg BID@0600,1800 GTB Last administered on 03/05/19 06:17; Admin Dose 30 MG; Start 02/28/19 at 18:00 FLAVIO CLAYTON Mar 05, 2019 14:59
--- NOTE | 2019-03-05 16:22 | CONS ---
Assessment/Plan Assessment/Plan Hospital Course (Demo Recall) ID PROGRESS NOTE CURRENT ABX: DAY #=> Ampicillin, Cancidas 03/04/19 0534 03/04/19 0534 24H INTERVAL SUMMARY * Resting comfortably with eyes closed, awakens, no fevers, VSS, NAD * Indwelling: Left chest PermCath, PEG * Microbiology: Urine culture on admission grew Dominique glabrata, blood culture grew Enterococcus * Chest x-ray on admission revealed no definite evidence of pneumonia or CHF MICRO * 03/02/19 BCx (-) * 03/02/19 URINE CULTURE Preliminary Organism 1 YEAST COLONY COUNT >100,000 CFU/ml Culture too young to evaluate * 02/23/19 BCX (-) * 02/21/19 BLOOD CULTURE Final Organism 1 ENTEROCOCCUS SPECIES * 02/19/19 (+)MRSA Nares * 02/18/19 BCx (-) * * * 12/20/18 URINE Cx (+) Glabrata URINE CULTURE Final Organism 1 DOMINIQUE GLABRATA COLONY COUNT 30,000 - 40,000 CFU/ml * 12/20/18 BCx (-) * 12/18/18 BCx (-) * 12/06/18 URINE Cx (+) Glabrata * 12/03/18 BCx (-) * 12/01/18 BCx (-) * 11/29/18 BCx (+) Glabrata * 11/24/18 BCX (+) Glabrata = fungemia PHYSICAL EXAMINATION: GENERAL: Afebrile, VSS, HEENT: AT, NC, anicteric NECK: Supple, trach CHEST: Equal chest rise bilaterally, without dyspnea on observation HEART: Pulse RRR ABDOMEN: Soft / NT EXTREMITIES: Warm, dry SKIN: No rash, no diaphoresis ID ASSESSMENT 83 yo F w/ DEMENTIA admit with: 1. s/p Enterococcal bacteremia -- repeat BCx (-) 2. Recurrent C.GLABRATA UTIs * s/p FUNGEMIA prior admission 4. Status post VRE bacteremia, status post new Pcath => RESOLVED 5. End-stage renal disease, hemodialysis dependent 6. Diabetes 7. Anemia 8. Failure to thrive - Frail cachectic w/dementia 9. s/p Aspiration PNA prior admission (-)MRSA Nares ABX ALLERGIES: KNDA INVASIVES: PIV, Left chest PermCath CURRENT ABX: DAY #=> Ampicillin + Cancidas ID RECOMMENDATIONS/PLAN: 1. Continue Ampicillin last day 03/10/19 2. Start Cancidas for recurrent Yeast UTI -- Vfend has drug drug interactions w/current meds. 3. Off load yeast w/Monostat VAG suppository . Consultation Date/Type/Reason Admit Date/Time Feb 19, 2019 at 01:01 Initial Consult Date 02/23/19 Requesting Provider: JILLIAN HOLLAND MD Date/Time of Note DATE: 03/05/19 TIME: 16:10 Exam/Review of Systems Exam Vitals Vital Signs Date Temp Pulse Resp B/P (MAP) Pulse Ox O2 O2 Flow FiO2 Time Delivery Rate 03/05/19 98.5 89 16 129/60 96 Room Air 14:00 (83) Intake and Output 03/04/19 03/04/19 03/05/19 1414:59 22:59 06:59 IntakeIntake Total 560 ml 100 ml OutputOutput Total 1400 ml BalanceBalance -1400 ml 560 ml 100 ml Results Result Diagram: 03/04/19 0534 03/04/19 0534 Results 24hrs Laboratory Tests Test 03/04/19 20:58 Bedside Glucose 192 Medications Medication Current Medications IV Flush (NS 3 ml) 3 ml PER PROTOCOL IV ; Start 02/19/19 at 03:30 Lorazepam (Ativan) 0.5 mg Q8H PRN GTB .ANXIETY Last administered on 03/04/19at 01:18; Admin Dose 0.5 MG; Start 02/19/19 at 03:30 Ondansetron HCl (Zofran Inj) 4 mg Q6H PRN IV NAUSEA/VOMITING; Start 02/19/19 at 03:30 Acetaminophen (Tylenol Tab) 325 mg Q4H PRN GTB FOR FEVER 100AND ABOVE Last administered on 02/20/19at 20:13; Admin Dose 325 MG; Start 02/19/19 at 03:30 Acetaminophen (Tylenol Tab) 650 mg Q6H PRN GTB PAIN LEVEL 1-10/10 Last administered on 02/19/19at 21:49; Admin Dose 650 MG; Start 02/19/19 at 03:30 Amlodipine Besylate (Norvasc) 5 mg BID GTB Last administered on 03/05/19at 08:25; Admin Dose 5 MG; Start 02/19/19 at 09:00 Ascorbic Acid (Vitamin C) 500 mg DAILY GTB Last administered on 03/05/19 08:25; Admin Dose 500 MG; Start 02/19/19 at 09:00 Aspirin (Aspirin) 81 mg DAILY GTB Last administered on 02/26/19 10:20; Admin Dose 81 MG; Start 02/19/19 at 09:00; Status Hold Atorvastatin Calcium (Lipitor) 40 mg QHS GTB Last administered on 03/04/19 20:59; Admin Dose 40 MG; Start 02/19/19 at 21:00 Ferrous Sulfate (Ferrous Sulfate (Ec)) 325 mg BID PO Last administered on 03/05/19 08:29; Admin Dose 325 MG; Start 02/19/19 at 09:00 Folic Acid (Folic Acid) 1 mg DAILY GTB Last administered on 03/05/19 08:25; Admin Dose 1 MG; Start 02/19/19 at 09:00 Hydralazine HCl (Apresoline) 25 mg Q8 GTB Last administered on 03/05/19 14:11; Admin Dose 25 MG; Start 02/19/19 at 06:00 Linagliptin (Tradjenta) 5 mg DAILY GTB Last administered on 03/05/19 08:25; Admin Dose 5 MG; Start 02/19/19 at 09:00 Lorazepam (Ativan) 0.5 mg HS PRN GTB ANXIETY Last administered on 03/03/19 21:51; Admin Dose 0.5 MG; Start 02/19/19 at 03:30 Metoprolol Tartrate (Lopressor) 50 mg BID GTB Last administered on 03/05/19 08:25; Admin Dose 50 MG; Start 02/19/19 at 09:00 Ondansetron HCl (Zofran Tab) 4 mg Q4H PRN GTB NAUSEA AND/OR VOMITING; Start 02/19/19 at 03:30 Valproate Sodium (Depakene Liquid Cup) 250 mg Q8 GTB Last administered on 03/05/19 14:11; Admin Dose 250 MG; Start 02/19/19 at 06:00 Docusate Sodium (Colace Liquid Cup) 100 mg DAILY GTB Last administered on 03/04/19 08:58; Admin Dose 100 MG; Start 02/19/19 at 09:00 Docusate Sodium (Colace Liquid Cup) 100 mg Q12H PRN GTB CONSTIPATION; Start 02/19/19 at 04:00 Acetaminophen (Tylenol Tab) 650 mg Q6H PRN GTB .PAIN 1-3 OR TEMP Last administered on 02/19/19 11:57; Admin Dose 650 MG; Start 02/19/19 at 03:35 Mupirocin (Bactroban) 1 applic BID TOP Last administered on 03/05/19 09:34; Admin Dose 1 APPLIC; Start 02/22/19 at 14:00 Ampicillin 50 ml @ 100 mls/hr Q8 IVPB Last administered on 03/05/19 14:11; Admin Dose 100 MLS/HR; Start 02/24/19 at 14:00 Insulin Glargine (Lantus) 4 units DAILY@2000 SC Last administered on 03/04/19 21:51; Admin Dose 4 UNITS; Start 02/26/19 at 20:00 Epoetin Michael-epbx (Retacrit (Esrd)) 4,000 unit MoWeFr@1700 SC Last administered on 03/04/19 17:23; Admin Dose 4,000 UNIT; Start 02/28/19 at 17:00 Olanzapine (Zyprexa) 2.5 mg DAILY GTB Last administered on 03/05/19 09:34; Admin Dose 2.5 MG; Start 03/01/19 at 09:00 Lansoprazole (Prevacid) 30 mg BID@0600,1800 GTB Last administered on 03/05/19 06:17; Admin Dose 30 MG; Start 02/28/19 at 18:00 SEVERO GARCIA NP Mar 05, 2019 16:21
--- NOTE | 2019-03-05 17:19 | CONS ---
Assessment/Plan Assessment/Plan Hospital Course (Demo Recall) 83 yo female presented with severe anemia Interval hx: No acute changes. Per RN, no GI bleeding noted. Tolerating tf at 30cc/hr 1. Severe anemia,acute on chronic -GI bleed vs chronic disease -stable -retic 2.6, ferritin 4490, neg FOB 2. End-stage renal disease on dialysis. 3. Urinary tract infection. -positive yeast 4. Dysphagia, status post percutaneous endoscopic gastrostomy tube placement. 5. Hypertension. 6. Behavioral disorder. PLAN: Monitor HH Hold all anti coagulants PPI BID If GI bleeding, noted positive FOB, we will consider push endoscopy Pt examined and plan of care discussed with Dr. Baird. Consultation Date/Type/Reason Admit Date/Time Feb 19, 2019 at 01:01 Initial Consult Date Requesting Provider: JILLIAN HOLLAND MD Date/Time of Note DATE: 03/05/19 TIME: 17:18 Exam/Review of Systems Exam Vitals Vital Signs Date Temp Pulse Resp B/P (MAP) Pulse Ox O2 O2 Flow FiO2 Time Delivery Rate 03/05/19 98.5 89 16 129/60 96 Room Air 14:00 (83) Intake and Output 03/04/19 03/04/19 03/05/19 1515:00 23:00 07:00 IntakeIntake Total 560 ml 100 ml OutputOutput Total 1400 ml BalanceBalance -1400 ml 560 ml 100 ml Constitutional: alert Head: normocephalic Eyes: nl sclera, PERRL ENMT: mucosa pink and moist Respiratory: normal air movement Gastrointestinal: soft, non-tender 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: confused Results Result Diagram: 03/04/19 0534 03/04/19 0534 Results 24hrs Laboratory Tests Test 03/04/19 20:58 Bedside Glucose 192 Medications Medication Current Medications IV Flush (NS 3 ml) 3 ml PER PROTOCOL IV ; Start 02/19/19 at 03:30 Lorazepam (Ativan) 0.5 mg Q8H PRN GTB .ANXIETY Last administered on 03/04/19at 01:18; Admin Dose 0.5 MG; Start 02/19/19 at 03:30 Ondansetron HCl (Zofran Inj) 4 mg Q6H PRN IV NAUSEA/VOMITING; Start 02/19/19 at 03:30 Acetaminophen (Tylenol Tab) 325 mg Q4H PRN GTB FOR FEVER 100AND ABOVE Last administered on 02/20/19 20:13; Admin Dose 325 MG; Start 02/19/19 at 03:30 Acetaminophen (Tylenol Tab) 650 mg Q6H PRN GTB PAIN LEVEL 1-10/10 Last administered on 02/19/19 21:49; Admin Dose 650 MG; Start 02/19/19 at 03:30 Amlodipine Besylate (Norvasc) 5 mg BID GTB Last administered on 03/05/19 08:25; Admin Dose 5 MG; Start 02/19/19 at 09:00 Ascorbic Acid (Vitamin C) 500 mg DAILY GTB Last administered on 03/05/19 08:25; Admin Dose 500 MG; Start 02/19/19 at 09:00 Aspirin (Aspirin) 81 mg DAILY GTB Last administered on 02/26/19 10:20; Admin Dose 81 MG; Start 02/19/19 at 09:00; Status Hold Atorvastatin Calcium (Lipitor) 40 mg QHS GTB Last administered on 03/04/19 20:59; Admin Dose 40 MG; Start 02/19/19 at 21:00 Ferrous Sulfate (Ferrous Sulfate (Ec)) 325 mg BID PO Last administered on 03/05/19 08:29; Admin Dose 325 MG; Start 02/19/19 at 09:00 Folic Acid (Folic Acid) 1 mg DAILY GTB Last administered on 03/05/19 08:25; Admin Dose 1 MG; Start 02/19/19 at 09:00 Hydralazine HCl (Apresoline) 25 mg Q8 GTB Last administered on 03/05/19 14:11; Admin Dose 25 MG; Start 02/19/19 at 06:00 Linagliptin (Tradjenta) 5 mg DAILY GTB Last administered on 03/05/19 08:25; Admin Dose 5 MG; Start 02/19/19 at 09:00 Lorazepam (Ativan) 0.5 mg HS PRN GTB ANXIETY Last administered on 03/03/19 21:51; Admin Dose 0.5 MG; Start 02/19/19 at 03:30 Metoprolol Tartrate (Lopressor) 50 mg BID GTB Last administered on 03/05/19 08:25; Admin Dose 50 MG; Start 02/19/19 at 09:00 Ondansetron HCl (Zofran Tab) 4 mg Q4H PRN GTB NAUSEA AND/OR VOMITING; Start 02/19/19 at 03:30 Valproate Sodium (Depakene Liquid Cup) 250 mg Q8 GTB Last administered on 03/05/19 14:11; Admin Dose 250 MG; Start 02/19/19 at 06:00 Docusate Sodium (Colace Liquid Cup) 100 mg DAILY GTB Last administered on 03/04/19 08:58; Admin Dose 100 MG; Start 02/19/19 at 09:00 Docusate Sodium (Colace Liquid Cup) 100 mg Q12H PRN GTB CONSTIPATION; Start 02/19/19 at 04:00 Acetaminophen (Tylenol Tab) 650 mg Q6H PRN GTB .PAIN 1-3 OR TEMP Last administered on 02/19/19 11:57; Admin Dose 650 MG; Start 02/19/19 at 03:35 Mupirocin (Bactroban) 1 applic BID TOP Last administered on 03/05/19 09:34; Admin Dose 1 APPLIC; Start 02/22/19 at 14:00 Ampicillin 50 ml @ 100 mls/hr Q8 IVPB Last administered on 03/05/19 14:11; Admin Dose 100 MLS/HR; Start 02/24/19 at 14:00 Insulin Glargine (Lantus) 4 units DAILY@2000 SC Last administered on 03/04/19 21:51; Admin Dose 4 UNITS; Start 02/26/19 at 20:00 Epoetin Michael-epbx (Retacrit (Esrd)) 4,000 unit MoWeFr@1700 SC Last administered on 03/04/19 17:23; Admin Dose 4,000 UNIT; Start 02/28/19 at 17:00 Olanzapine (Zyprexa) 2.5 mg DAILY GTB Last administered on 03/05/19 09:34; Admin Dose 2.5 MG; Start 03/01/19 at 09:00 Lansoprazole (Prevacid) 30 mg BID@0600,1800 GTB Last administered on 03/05/19 06:17; Admin Dose 30 MG; Start 02/28/19 at 18:00 Caspofungin 70 mg/ Sodium Chloride 250 ml @ 250 mls/hr ONCE ONCE IVPB ; Start 03/05/19 at 18:00; Stop 03/05/19 at 18:59 Caspofungin 50 mg/ Sodium Chloride 250 ml @ 250 mls/hr Q24H IVPB ; Start 03/06/19 at 18:00; Stop 03/13/19 at 17:59 Miconazole (Monistat-7) 2 supp HS VAG ; Start 03/05/19 at 21:00; Stop 03/07/19 at 21:01 TONY VENCES Mar 05, 2019 17:19
[2019-03-05] MEDS ORDERED: CASPOFUNGIN 70 MG in SOD CHLORIDE 0.9% 250 ML IVPB ONE (18:00)
--- NOTE | 2019-03-05 20:31 | PN ---
DATE: 03/05/2019 HISTORY OF PRESENT ILLNESS: I have been called everyday to remove restraints and I told them that ev adin time I come to the hospital, I placed an order to remove the restraints. They cannot accept the restraining order over the phone, so them calling me every day is somewhat of a nuisance. I told the nurse to remove the restraints and put the patient onto 1:1 sitter. I noted a note by the nurse say ing that I failed to renew but I did not run on the patient yet, and I was not close to a computer to renew it. The patient's repeat urine culture is positive for yeast. PHYSICAL EXAMINATION: VITAL SIGNS: Temperature 98.5, pulse 89, respirations 16, blood pressure 129/60, saturation 96%. GENERAL: The patient is in no acute distress. The patient is sleeping. CARDIOVASCULAR: S1, S2 regular rate. LUNGS: Clear. Left IJ Perm-A-Cath in place. ABDOMEN: Soft. G-tube in place. EXTREMITIES: No clubbing or cyanosis. Trace edema upper extremities. LABORATORY DATA: White count 12.9, hemoglobin 8.5 that was yesterday. No new labs today. MEDICATIONS: 1. Zyprexa 2.5 daily. 2. Prevacid 30 mg b.i.d. 3. Epogen as directed every Thursday, Thursday and Thursday. 4. Lantus 4 units daily. 5. Ampicillin IV q.8h. 6. Bactroban b.i.d. 7. Lipitor 40 at bedtime. 8. Norvasc 5 mg b.i.d. 9. Vitamin C 500 mg daily. 10. Ferrous sulfate 325 b.i.d. 11. Folic acid 1 mg daily. 12. Tradjenta 5 mg daily. 13. Lopressor 50 mg b.i.d. 14. Colace 100 daily. 15. Hydralazine 25 q.8h. 16. Depakote 250 q.8. 17. Colace 100 q.12h. p.r.n. 18. Tylenol p.r.n. 19. Ativan p.r.n. 20. Zofran p.r.n. ASSESSMENT AND PLAN: This is an 83-year-old [place] female, very sick, with history of vascular dem entia, diabetes mellitus, end-stage renal disease, nonambulatory, frequent hospitalizations for bacte remia, line sepsis, fungemia, and urinary tract infection. 1. Respiratory. Continue supportive care, aspiration precautions, O2 support as needed. 2. Cardiovascular. Vitals are stable with the above medications. 3. Anemia, on Epogen. Transfuse p.r.n. 4. Prevacid for GI prophylaxis. 5. Off aspirin due to risk of gastrointestinal bleeding. 6. End-stage renal disease, next dialysis on Thursday. 7. Dysphagia. Continue G-tube at 30 mL an hour. Aspiration precautions are in place. 8. Anxiety. Continue above antipsychotics. 9. The patient will be placed on 1:1 sitter due to risk of fall in anticipation for discharge to be off restraints. 10. The patient was not discharged due to nonavailability at the facility. Case management to bobbi t with placement. 11. Infectious disease on patient with urinary tract infection with history of resistant yeast infec tion. Followup cultures. Previously been on various treatments including and Cancidas. Angel lea ID recommendations. 12. Follow up labs tomorrow. Dictated By: DYLON HULL/MADAN Conf#: [id number] DID#: [id number] CC: JOSE RAUL ANDREWS;*End*
[2019-03-05] MEDS: ATORVASTATIN 40 MG TAB GTB SCH (21:53)
[2019-03-05] MEDS: MICONAZOLE 100 MG VAG SUPP VAG SCH (21:54)
[2019-03-05] MEDS: INSULIN GLARGINE [LANTus] (100 UNITS/ML) SYG SC SCH (21:58)
[2019-03-06 02:01] VITALS: BP 129/60; PULSE 82; RESP 16
[2019-03-06] MEDS: VALPROIC ACID LIQUID CUP 250 MG/5 ML CUP GTB SCH ×3 (05:44→21:53)
[2019-03-06] MEDS: LANSOPRAZOLE 30 MG CAP GTB SCH ×2 (05:44→17:35)
[2019-03-06] MEDS: AMPICILLIN 1 GM/NS (PMX) 50 ML IVPB SCH ×3 (05:44→21:54)
[2019-03-06 07:00] VITALS: BP 134/60; PULSE 91; RESP 18
[2019-03-06] MEDS: DOCUSATE SODIUM 10 MG/ML (10ML CUP) GTB SCH (08:34)
[2019-03-06] MEDS: ASCORBIC ACID 500 MG TAB GTB SCH (08:35)
[2019-03-06] MEDS: OLANZAPINE 2.5 MG TAB GTB SCH (08:35)
[2019-03-06] MEDS: FOLIC ACID 1 MG TAB GTB SCH (08:35)
[2019-03-06] MEDS: AMLODIPINE 5 MG TAB GTB SCH ×2 (08:35→21:53)
[2019-03-06] MEDS: LINAGLIPTIN 5 MG TABLET GTB SCH (08:36)
[2019-03-06] MEDS: MUPIROCIN 2% 22 GM OINT TOP SCH ×2 (08:36→21:56)
[2019-03-06] MEDS: FERROUS SULFATE (EC) 325 MG TAB PO SCH ×2 (08:36→21:52)
[2019-03-06] MEDS: METOPROLOL 50 MG TAB GTB SCH ×2 (08:36→21:53)
--- NOTE | 2019-03-06 13:03 | CONS ---
Assessment/Plan Assessment/Plan Hospital Course (Demo Recall) 83 yo female presented with severe anemia Interval hx: No acute changes. Per RN, no GI bleeding noted. Tolerating tf at 30cc/hr 1. Severe anemia,acute on chronic -GI bleed vs chronic disease -stable -retic 2.6, ferritin 4490, neg FOB 2. End-stage renal disease on dialysis. 3. Urinary tract infection. -positive yeast 4. Dysphagia, status post percutaneous endoscopic gastrostomy tube placement. 5. Hypertension. 6. Behavioral disorder. PLAN: Monitor HH Hold all anti coagulants PPI BID If GI bleeding, noted positive FOB, we will consider push endoscopy Pt examined and plan of care discussed with Dr. Baird. Consultation Date/Type/Reason Admit Date/Time Feb 19, 2019 at 01:01 Initial Consult Date Requesting Provider: JILLIAN HOLLAND MD Date/Time of Note DATE: 03/06/19 TIME: 13:02 Exam/Review of Systems Exam Vitals Vital Signs Date Temp Pulse Resp B/P (MAP) Pulse Ox O2 O2 Flow FiO2 Time Delivery Rate 03/06/19 99.0 91 18 134/60 97 Room Air 07:00 (84) Intake and Output 03/05/19 03/05/19 03/06/19 1515:00 23:00 07:00 IntakeIntake Total 350 ml 250 ml 630 ml BalanceBalance 350 ml 250 ml 630 ml Constitutional: alert Psych: no complaints Head: normocephalic Eyes: PERRL ENMT: mucosa pink and moist Respiratory: normal air movement Gastrointestinal: soft, non-tender 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: confused Results Result Diagram: 03/06/19 0524 03/06/19 0524 Results 24hrs Laboratory Tests Test 03/05/19 21:50 03/06/19 05:24 03/06/19 08:17 Bedside Glucose 181 172 White Blood Count 12.3 H Red Blood Count 3.09 L Hemoglobin 8.4 L Hematocrit 26.7 L Mean Corpuscular Volume 86.4 Mean Corpuscular Hemoglobin 27.2 L Mean Corpuscular Hemoglobin Concent 31.5 L Red Cell Distribution Width 15.9 H Platelet Count 332 Mean Platelet Volume 11.4 H Immature Granulocytes % 1.200 H Neutrophils % 78.8 H Lymphocytes % 6.3 L Monocytes % 10.1 Eosinophils % 3.4 Basophils % 0.2 Nucleated Red Blood Cells % 0.6 H Immature Granulocytes # 0.150 H Neutrophils # 9.7 H Lymphocytes # 0.8 Monocytes # 1.2 H Eosinophils # 0.4 Basophils # 0.0 Nucleated Red Blood Cells # 0.1 H Sodium Level 134 L Potassium Level 3.9 Chloride Level 101 Carbon Dioxide Level 26 Anion Gap 7 Blood Urea Nitrogen 50 H Creatinine 1.85 H Est Glomerular Filtrat Rate mL/min Glucose Level 152 Calcium Level 8.9 Phosphorus Level 3.5 Magnesium Level 2.5 Medications Medication Current Medications IV Flush (NS 3 ml) 3 ml PER PROTOCOL IV ; Start 02/19/19 at 03:30 Lorazepam (Ativan) 0.5 mg Q8H PRN GTB .ANXIETY Last administered on 03/04/19 0 1:18; Admin Dose 0.5 MG; Start 02/19/19 at 03:30 Ondansetron HCl (Zofran Inj) 4 mg Q6H PRN IV NAUSEA/VOMITING; Start 02/19/19 at 03:30 Acetaminophen (Tylenol Tab) 325 mg Q4H PRN GTB FOR FEVER 100AND ABOVE Last administered on 02/20/19 20:13; Admin Dose 325 MG; Start 02/19/19 at 03:30 Acetaminophen (Tylenol Tab) 650 mg Q6H PRN GTB PAIN LEVEL 1-10/10 Last administered on 02/19/19 21:49; Admin Dose 650 MG; Start 02/19/19 at 03:30 Amlodipine Besylate (Norvasc) 5 mg BID GTB Last administered on 03/06/19 08:35; Admin Dose 5 MG; Start 02/19/19 at 09:00 Ascorbic Acid (Vitamin C) 500 mg DAILY GTB Last administered on 03/06/19 08:35; Admin Dose 500 MG; Start 02/19/19 at 09:00 Aspirin (Aspirin) 81 mg DAILY GTB Last administered on 02/26/19 10:20; Admin Dose 81 MG; Start 02/19/19 at 09:00; Status Hold Atorvastatin Calcium (Lipitor) 40 mg QHS GTB Last administered on 03/05/19 21:53; Admin Dose 40 MG; Start 02/19/19 at 21:00 Ferrous Sulfate (Ferrous Sulfate (Ec)) 325 mg BID PO Last administered on 03/06/19 08:36; Admin Dose 325 MG; Start 02/19/19 at 09:00 Folic Acid (Folic Acid) 1 mg DAILY GTB Last administered on 03/06/19 08:35; Admin Dose 1 MG; Start 02/19/19 at 09:00 Hydralazine HCl (Apresoline) 25 mg Q8 GTB Last administered on 03/06/19 05:45; Admin Dose 25 MG; Start 02/19/19 at 06:00 Linagliptin (Tradjenta) 5 mg DAILY GTB Last administered on 03/06/19 08:36; Admin Dose 5 MG; Start 02/19/19 at 09:00 Lorazepam (Ativan) 0.5 mg HS PRN GTB ANXIETY Last administered on 03/03/19 21:51; Admin Dose 0.5 MG; Start 02/19/19 at 03:30 Metoprolol Tartrate (Lopressor) 50 mg BID GTB Last administered on 03/06/19 08:36; Admin Dose 50 MG; Start 02/19/19 at 09:00 Ondansetron HCl (Zofran Tab) 4 mg Q4H PRN GTB NAUSEA AND/OR VOMITING; Start 02/19/19 at 03:30 Valproate Sodium (Depakene Liquid Cup) 250 mg Q8 GTB Last administered on 03/06/19 05:44; Admin Dose 250 MG; Start 02/19/19 at 06:00 Docusate Sodium (Colace Liquid Cup) 100 mg DAILY GTB Last administered on 03/04/19 08:58; Admin Dose 100 MG; Start 02/19/19 at 09:00 Docusate Sodium (Colace Liquid Cup) 100 mg Q12H PRN GTB CONSTIPATION; Start 02/19/19 at 04:00 Acetaminophen (Tylenol Tab) 650 mg Q6H PRN GTB .PAIN 1-3 OR TEMP Last administered on 02/19/19 11:57; Admin Dose 650 MG; Start 02/19/19 at 03:35 Mupirocin (Bactroban) 1 applic BID TOP Last administered on 03/06/19 08:36; Admin Dose 1 APPLIC; Start 02/22/19 at 14:00 Ampicillin 50 ml @ 100 mls/hr Q8 IVPB Last administered on 4/28/19at 05:44; Admin Dose 100 MLS/HR; Start 02/24/19 at 14:00 Insulin Glargine (Lantus) 4 units DAILY@2000 SC Last administered on 03/05/19at 21:58; Admin Dose 4 UNITS; Start 02/26/19 at 20:00 Epoetin Michael-epbx (Retacrit (Esrd)) 4,000 unit MoWeFr@1700 SC Last administered on 03/04/19 17:23; Admin Dose 4,000 UNIT; Start 02/28/19 at 17:00 Olanzapine (Zyprexa) 2.5 mg DAILY GTB Last administered on 03/06/19 08:35; Admin Dose 2.5 MG; Start 03/01/19 at 09:00 Lansoprazole (Prevacid) 30 mg BID@0600,1800 GTB Last administered on 03/06/19 05:44; Admin Dose 30 MG; Start 02/28/19 at 18:00 Caspofungin 50 mg/ Sodium Chloride 250 ml @ 250 mls/hr Q24H IVPB ; Start 03/06/19 at 18:00; Stop 03/13/19 at 17:59 Miconazole (Monistat-7) 2 supp HS VAG Last administered on 03/05/19at 21:54; Admin Dose 2 SUPP; Start 03/05/19 at 21:00; Stop 03/07/19 at 21:01 TONY VENCES Mar 06, 2019 13:03
[2019-03-06 13:51] VITALS: BP 134/63; PULSE 85; RESP 18
[2019-03-06] MEDS: LORAZEPAM 0.5 MG TAB GTB PRN (15:04)
--- NOTE | 2019-03-06 15:23 | CONS ---
Assessment/Plan Assessment/Plan Hospital Course (Demo Recall) ID PROGRESS NOTE CURRENT ABX: DAY #=> Ampicillin, Cancidas #2 03/06/1952303/06/19 05 24H INTERVAL SUMMARY * Clinically stable, lethargic, no fevers, NAD * Indwelling: Left chest PermCath, PEG * Microbiology: Urine culture on admission grew Dominique glabrata, blood culture grew Enterococcus * Chest x-ray on admission revealed no definite evidence of pneumonia or CHF MICRO * 03/02/19 BCx (-) * 03/02/19 URINE CULTURE Final Organism 1 DOMINIQUE GLABRATA COLONY COUNT >100,000 CFU/ml * 02/23/19 BCX (-) * 02/21/19 BLOOD CULTURE Final Organism 1 ENTEROCOCCUS SPECIES * 02/19/19 (+)MRSA Nares * 02/18/19 BCx (-) * * * 12/20/18 URINE Cx (+) Glabrata URINE CULTURE Final Organism 1 DOMINIQUE GLABRATA COLONY COUNT 30,000 - 40,000 CFU/ml * 12/20/18 BCx (-) * 12/18/18 BCx (-) * 12/06/18 URINE Cx (+) Glabrata * 12/03/18 BCx (-) * 12/01/18 BCx (-) * 11/29/18 BCx (+) Glabrata * 11/24/18 BCX (+) Glabrata = fungemia PHYSICAL EXAMINATION: GENERAL: Afebrile, VSS, HEENT: AT, NC, anicteric NECK: Supple, trach CHEST: Equal chest rise bilaterally, without dyspnea on observation HEART: Pulse RRR ABDOMEN: Soft / NT EXTREMITIES: Warm, dry SKIN: No rash, no diaphoresis ID ASSESSMENT 83 yo F w/ DEMENTIA admit with: 1. s/p Enterococcal bacteremia -- repeat BCx (-) 2. Recurrent C.GLABRATA UTIs * s/p FUNGEMIA prior admission 4. Status post VRE bacteremia, status post new Pcath => RESOLVED 5. End-stage renal disease, hemodialysis dependent 6. Diabetes 7. Anemia 8. Failure to thrive - Frail cachectic w/dementia 9. s/p Aspiration PNA prior admission (-)MRSA Nares ABX ALLERGIES: KNDA INVASIVES: PIV, Left chest PermCath CURRENT ABX: DAY #=> Ampicillin + Cancidas #2 ID RECOMMENDATIONS/PLAN: 1. Continue Ampicillin last day 5/2/19 2. Started Cancidas for recurrent Yeast UTI -- Vfend has drug drug interactions w/current meds. 3. Off load yeast w/Monostat VAG suppository . Consultation Date/Type/Reason Admit Date/Time Feb 19, 2019 at 01:01 Initial Consult Date 02/23/19 Requesting Provider: JILLIAN HOLLAND MD Date/Time of Note DATE: 03/06/19 TIME: 15:22 Exam/Review of Systems Exam Vitals Vital Signs Date Temp Pulse Resp B/P (MAP) Pulse Ox O2 O2 Flow FiO2 Time Delivery Rate 03/06/19 98.3 85 18 134/63 98 Room Air 13:51 (86) Intake and Output 03/05/19 03/05/19 03/06/19 1414:59 22:59 06:59 IntakeIntake Total 350 ml 250 ml 630 ml BalanceBalance 350 ml 250 ml 630 ml Results Result Diagram: 03/06/19 0524 03/06/19 0524 Results 24hrs Laboratory Tests Test 03/05/19 21:50 03/06/19 05:24 03/06/19 08:17 Bedside Glucose 181 172 White Blood Count 12.3 H Red Blood Count 3.09 L Hemoglobin 8.4 L Hematocrit 26.7 L Mean Corpuscular Volume 86.4 Mean Corpuscular Hemoglobin 27.2 L Mean Corpuscular Hemoglobin Concent 31.5 L Red Cell Distribution Width 15.9 H Platelet Count 332 Mean Platelet Volume 11.4 H Immature Granulocytes % 1.200 H Neutrophils % 78.8 H Lymphocytes % 6.3 L Monocytes % 10.1 Eosinophils % 3.4 Basophils % 0.2 Nucleated Red Blood Cells % 0.6 H Immature Granulocytes # 0.150 H Neutrophils # 9.7 H Lymphocytes # 0.8 Monocytes # 1.2 H Eosinophils # 0.4 Basophils # 0.0 Nucleated Red Blood Cells # 0.1 H Sodium Level 134 L Potassium Level 3.9 Chloride Level 101 Carbon Dioxide Level 26 Anion Gap 7 Blood Urea Nitrogen 50 H Creatinine 1.85 H Est Glomerular Filtrat Rate mL/min Glucose Level 152 Calcium Level 8.9 Phosphorus Level 3.5 Magnesium Level 2.5 Medications Medication Current Medications IV Flush (NS 3 ml) 3 ml PER PROTOCOL IV ; Start 02/19/19 at 03:30 Lorazepam (Ativan) 0.5 mg Q8H PRN GTB .ANXIETY Last administered on 03/06/19 15:04; Admin Dose 0.5 MG; Start 02/19/19 at 03:30 Ondansetron HCl (Zofran Inj) 4 mg Q6H PRN IV NAUSEA/VOMITING; Start 02/19/19 at 03:30 Acetaminophen (Tylenol Tab) 325 mg Q4H PRN GTB FOR FEVER 100AND ABOVE Last administered on 02/20/19 20:13; Admin Dose 325 MG; Start 02/19/19 at 03:30 Acetaminophen (Tylenol Tab) 650 mg Q6H PRN GTB PAIN LEVEL 1-10/10 Last administered on 02/19/19 21:49; Admin Dose 650 MG; Start 02/19/19 at 03:30 Amlodipine Besylate (Norvasc) 5 mg BID GTB Last administered on 03/06/19 08:35; Admin Dose 5 MG; Start 02/19/19 at 09:00 Ascorbic Acid (Vitamin C) 500 mg DAILY GTB Last administered on 03/06/19 08:35; Admin Dose 500 MG; Start 02/19/19 at 09:00 Aspirin (Aspirin) 81 mg DAILY GTB Last administered on 02/26/19 10:20; Admin Dose 81 MG; Start 02/19/19 at 09:00; Status Hold Atorvastatin Calcium (Lipitor) 40 mg QHS GTB Last administered on 03/05/19 21:53; Admin Dose 40 MG; Start 02/19/19 at 21:00 Ferrous Sulfate (Ferrous Sulfate (Ec)) 325 mg BID PO Last administered on 03/06/19 08:36; Admin Dose 325 MG; Start 02/19/19 at 09:00 Folic Acid (Folic Acid) 1 mg DAILY GTB Last administered on 03/06/19 08:35; Admin Dose 1 MG; Start 02/19/19 at 09:00 Hydralazine HCl (Apresoline) 25 mg Q8 GTB Last administered on 03/06/19 13:50; Admin Dose 25 MG; Start 02/19/19 at 06:00 Linagliptin (Tradjenta) 5 mg DAILY GTB Last administered on 03/06/19 08:36; Admin Dose 5 MG; Start 02/19/19 at 09:00 Lorazepam (Ativan) 0.5 mg HS PRN GTB ANXIETY Last administered on 03/03/19 21:51; Admin Dose 0.5 MG; Start 02/19/19 at 03:30 Metoprolol Tartrate (Lopressor) 50 mg BID GTB Last administered on 03/06/19 08:36; Admin Dose 50 MG; Start 02/19/19 at 09:00 Ondansetron HCl (Zofran Tab) 4 mg Q4H PRN GTB NAUSEA AND/OR VOMITING; Start 02/19/19 at 03:30 Valproate Sodium (Depakene Liquid Cup) 250 mg Q8 GTB Last administered on 03/06/19 13:50; Admin Dose 250 MG; Start 02/19/19 at 06:00 Docusate Sodium (Colace Liquid Cup) 100 mg DAILY GTB Last administered on 03/04/19 08:58; Admin Dose 100 MG; Start 02/19/19 at 09:00 Docusate Sodium (Colace Liquid Cup) 100 mg Q12H PRN GTB CONSTIPATION; Start 02/19/19 at 04:00 Acetaminophen (Tylenol Tab) 650 mg Q6H PRN GTB .PAIN 1-3 OR TEMP Last administered on 02/19/19 11:57; Admin Dose 650 MG; Start 02/19/19 at 03:35 Mupirocin (Bactroban) 1 applic BID TOP Last administered on 03/06/19 08:36; Ad min Dose 1 APPLIC; Start 02/22/19 at 14:00 Ampicillin 50 ml @ 100 mls/hr Q8 IVPB Last administered on 03/06/19 13:50; Admin Dose 100 MLS/HR; Start 02/24/19 at 14:00 Insulin Glargine (Lantus) 4 units DAILY@2000 SC Last administered on 03/05/19 21:58; Admin Dose 4 UNITS; Start 02/26/19 at 20:00 Epoetin Michael-epbx (Retacrit (Esrd)) 4,000 unit MoWeFr@1700 SC Last administered on 03/04/19 17:23; Admin Dose 4,000 UNIT; Start 02/28/19 at 17:00 Olanzapine (Zyprexa) 2.5 mg DAILY GTB Last administered on 03/06/19at 08:35; Admin Dose 2.5 MG; Start 03/01/19 at 09:00 Lansoprazole (Prevacid) 30 mg BID@0600,1800 GTB Last administered on 03/06/19at 05:44; Admin Dose 30 MG; Start 02/28/19 at 18:00 Caspofungin 50 mg/ Sodium Chloride 250 ml @ 250 mls/hr Q24H IVPB ; Start 03/06/19 at 18:00; Stop 03/13/19 at 17:59 Miconazole (Monistat-7) 2 supp HS VAG Last administered on 03/05/19at 21:54; Admin Dose 2 SUPP; Start 03/05/19 at 21:00; Stop 03/07/19 at 21:01 SEVERO GARCIA NP Mar 06, 2019 15:23
--- NOTE | 2019-03-06 16:02 | CONS ---
Assessment/Plan Assessment/Plan Hospital Course (Demo Recall) 1. Fevers, likely secondary to urinary tract infection, now bld cx positive gram + Entercoccus 2. End-stage renal disease on hemodialysis. 3. Urinary tract infection. 4. Hypertension. 5. Dementia. 6. Diabetes mellitus type II. 7. Diastolic heart failure. 8. Moderate protein energy malnutrition with cachexia. 9. Osteoarthritis. 10. GT status 11. Anemia of chronic disease Assessment/Plan (Daily) - bleeding from HD cath -c/w HD, -a/b per ID -strict I and O -Left Chest Perm cath functioning. -c/w epoetin 3 times a week Consultation Date/Type/Reason Admit Date/Time Feb 19, 2019 at 01:01 Initial Consult Date 02/19/2019 Type of Consult nephrology Requesting Provider: JILLIAN HOLLAND MD Date/Time of Note DATE: 03/06/19 TIME: 16:01 Exam/Review of Systems Exam Vitals Vital Signs Date Temp Pulse Resp B/P (MAP) Pulse Ox O2 O2 Flow FiO2 Time Delivery Rate 03/06/19 98.3 85 18 134/63 98 Room Air 13:51 (86) Intake and Output 03/05/19 03/05/19 03/06/19 1515:00 23:00 07:00 IntakeIntake Total 350 ml 250 ml 630 ml BalanceBalance 350 ml 250 ml 630 ml Exam left chest Perm cath Constitutional: frail Psych: no complaints Head: normocephalic Respiratory: diminished breath sounds Cardiovascular: regular rate and rhythm Gastrointestinal: soft, other (GT ) Results Result Diagram: 03/06/19 0524 03/06/1924 Results 24hrs Laboratory Tests Test 03/05/19 21:50 03/06/19 05:24 03/06/19 08:17 Bedside Glucose 181 172 White Blood Count 12.3 H Red Blood Count 3.09 L Hemoglobin 8.4 L Hematocrit 26.7 L Mean Corpuscular Volume 86.4 Mean Corpuscular Hemoglobin 27.2 L Mean Corpuscular Hemoglobin Concent 31.5 L Red Cell Distribution Width 15.9 H Platelet Count 332 Mean Platelet Volume 11.4 H Immature Granulocytes % 1.200 H Neutrophils % 78.8 H Lymphocytes % 6.3 L Monocytes % 10.1 Eosinophils % 3.4 Basophils % 0.2 Nucleated Red Blood Cells % 0.6 H Immature Granulocytes # 0.150 H Neutrophils # 9.7 H Lymphocytes # 0.8 Monocytes # 1.2 H Eosinophils # 0.4 Basophils # 0.0 Nucleated Red Blood Cells # 0.1 H Sodium Level 134 L Potassium Level 3.9 Chloride Level 101 Carbon Dioxide Level 26 Anion Gap 7 Blood Urea Nitrogen 50 H Creatinine 1.85 H Est Glomerular Filtrat Rate mL/min Glucose Level 152 Calcium Level 8.9 Phosphorus Level 3.5 Magnesium Level 2.5 Medications Medication Current Medications IV Flush (NS 3 ml) 3 ml PER PROTOCOL IV ; Start 02/19/19 at 03:30 Lorazepam (Ativan) 0.5 mg Q8H PRN GTB .ANXIETY Last administered on 03/06/19 15:04; Admin Dose 0.5 MG; Start 02/19/19 at 03:30 Ondansetron HCl (Zofran Inj) 4 mg Q6H PRN IV NAUSEA/VOMITING; Start 02/19/19 at 03:30 Acetaminophen (Tylenol Tab) 325 mg Q4H PRN GTB FOR FEVER 100AND ABOVE Last administered on 02/20/19 20:13; Admin Dose 325 MG; Start 02/19/19 at 03:30 Acetaminophen (Tylenol Tab) 650 mg Q6H PRN GTB PAIN LEVEL 1-10/10 Last administered on 02/19/19 21:49; Admin Dose 650 MG; Start 02/19/19 at 03:30 Amlodipine Besylate (Norvasc) 5 mg BID GTB Last administered on 03/06/19 08:35; Admin Dose 5 MG; Start 02/19/19 at 09:00 Ascorbic Acid (Vitamin C) 500 mg DAILY GTB Last administered on 03/06/19 08:35; Admin Dose 500 MG; Start 02/19/19 at 09:00 Aspirin (Aspirin) 81 mg DAILY GTB Last administered on 02/26/19 10:20; Admin Dose 81 MG; Start 02/19/19 at 09:00; Status Hold Atorvastatin Calcium (Lipitor) 40 mg QHS GTB Last administered on 03/05/19 21:53; Admin Dose 40 MG; Start 02/19/19 at 21:00 Ferrous Sulfate (Ferrous Sulfate (Ec)) 325 mg BID PO Last administered on 03/06/19 08:36; Admin Dose 325 MG; Start 02/19/19 at 09:00 Folic Acid (Folic Acid) 1 mg DAILY GTB Last administered on 03/06/19 08:35; Admin Dose 1 MG; Start 02/19/19 at 09:00 Hydralazine HCl (Apresoline) 25 mg Q8 GTB Last administered on 03/06/19 13:50; Admin Dose 25 MG; Start 02/19/19 at 06:00 Linagliptin (Tradjenta) 5 mg DAILY GTB Last administered on 03/06/19 08:36; Admin Dose 5 MG; Start 02/19/19 at 09:00 Lorazepam (Ativan) 0.5 mg HS PRN GTB ANXIETY Last administered on 03/03/19 21:51; Admin Dose 0.5 MG; Start 02/19/19 at 03:30 Metoprolol Tartrate (Lopressor) 50 mg BID GTB Last administered on 03/06/19 08:36; Admin Dose 50 MG; Start 02/19/19 at 09:00 Ondansetron HCl (Zofran Tab) 4 mg Q4H PRN GTB NAUSEA AND/OR VOMITING; Start 02/19/19 at 03:30 Valproate Sodium (Depakene Liquid Cup) 250 mg Q8 GTB Last administered on 03/06/19 13:50; Admin Dose 250 MG; Start 02/19/19 at 06:00 Docusate Sodium (Colace Liquid Cup) 100 mg DAILY GTB Last administered on 03/04/19 08:58; Admin Dose 100 MG; Start 02/19/19 at 09:00 Docusate Sodium (Colace Liquid Cup) 100 mg Q12H PRN GTB CONSTIPATION; Start at 04:00 Acetaminophen (Tylenol Tab) 650 mg Q6H PRN GTB .PAIN 1-3 OR TEMP Last administered on 02/19/19 11:57; Admin Dose 650 MG; Start 02/19/19 at 03:35 Mupirocin (Bactroban) 1 applic BID TOP Last administered on 03/06/19 08:36; Admin Dose 1 APPLIC; Start 02/22/19 at 14:00 Ampicillin 50 ml @ 100 mls/hr Q8 IVPB Last administered on 03/06/19 13:50; Admin Dose 100 MLS/HR; Start 02/24/19 at 14:00 Insulin Glargine (Lantus) 4 units DAILY@2000 SC Last administered on 03/05/19at 21:58; Admin Dose 4 UNITS; Start 02/26/19 at 20:00 Epoetin Michael-epbx (Retacrit (Esrd)) 4,000 unit MoWeFr@1700 SC Last administered on 03/04/19at 17:23; Admin Dose 4,000 UNIT; Start 02/28/19 at 17:00 Olanzapine (Zyprexa) 2.5 mg DAILY GTB Last administered on 03/06/19at 08:35; Admin Dose 2.5 MG; Start 03/01/19 at 09:00 Lansoprazole (Prevacid) 30 mg BID@0600,1800 GTB Last administered on 03/06/19at 05:44; Admin Dose 30 MG; Start 02/28/19 at 18:00 Caspofungin 50 mg/ Sodium Chloride 250 ml @ 250 mls/hr Q24H IVPB ; Start 03/06/19 at 18:00; Stop 03/13/19 at 17:59 Miconazole (Monistat-7) 2 supp HS VAG Last administered on 03/05/19at 21:54; Admin Dose 2 SUPP; Start 03/05/19 at 21:00; Stop 03/07/19 at 21:01 FLAVIO CLAYTON Mar 06, 2019 16:02
--- NOTE | 2019-03-06 17:14 | PN ---
DATE: 03/06/2019 The patient was seen with a sitter, alert, off restraints. Awaiting placement. Will see if the teo ent can be accepted to go back to the assisted staff. PHYSICAL EXAMINATION: VITAL SIGNS: T-max 99, temperature 98.3, pulse 85, respiration 18, blood pressure 134/63, saturation 98% on room air. GENERAL: The patient is in no acute distress. The patient is a frail, pale, responsive. CARDIOVASCULAR: S1, S2, regular rate. LUNGS: Clear. ABDOMEN: Soft. G-tube in place. EXTREMITIES: No clubbing, cyanosis, or edema. The patient has a left IJ Perm-A-Cath. LABORATORY DATA: White count elevated at 12.3, hemoglobin 8.4, hematocrit 27, platelet count 332, ne utrophils 79%, lymphocytes 6%. Chemistry: Sodium 134, potassium 3.9, chloride 101, bicarbonate 26, BUN is 50, creatinine 0.85 and glucose of 152. MEDICATIONS: Were all reviewed, and include: 1. Caspofungin 50 IV daily. 2. Miconazole suppository vaginally at bedtime. 3. Zyprexa 2.5 daily. 4. Prevacid 30 mg twice a day. 5. Epogen as directed every Thursday, Thursday, Thursday. 6. Lantus 4 units at bedtime. 7. Ampicillin to be continued for 3 more days IV. 8. Lipitor 40 mg at bedtime. 9. Norvasc 5 mg twice a day. 10. Vitamin C 500 mg daily. 11. Sulfasalazine 5 m twice a day. 12. Folic acid 1 mg daily. 13. Tradjenta 5 mg daily. 14. Lopressor 50 twice a day. 15. Colace 100 daily. 16. Hydralazine 25 mg every 8 hours. 17. Depakote 250 every 8 hours. 18. Colace p.r.n. 19. Tylenol p.r.n. 20. Ativan. 21. Zofran p.r.n. 22. Tylenol p.r.n. ASSESSMENT AND PLAN: This is an 83-year-old unfortunate [place]ian female with history of advanced vas cular dementia, end-stage renal disease on dialysis every Thursday, Thursday and Thursday. Diabetes michael itus, controlled, who has prolonged hospitalization for recurrent bacteremia, urinary tract infection . 1. Respiratory: Continue supportive care. Dialysis for fluid removal. O2 support. Continue aspira tion precaution. Nothing by mouth. 2. Cardiovascular. Stable with the above blood pressure meds. Off aspirin due to recurrent gastroi ntestinal bleed. 3. Anemia. Continue Epogen. Transfuse p.r.n. 4. Continue Prevacid for gastrointestinal prophylaxis. 5. End-stage renal disease. Dialysis due for tomorrow. 6. Dysphagia. Continue G-tube feeding at 30 mL an hour, tolerating it well. 7. Urinary tract infection with organism Dominique glabrata. Continue ____. 8. Anxiety. Continue on antipsychotics. 9. One to one sitter for close monitoring in anticipation for discharge. The patient cannot be on r estraints. 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 The patient definitely is challenging to care for due to previous falls, etc. We will follow. Dictated By: DYLON HULL/MADAN Conf#: [id number] DID#: [id number]
[2019-03-06] MEDS: CASPOFUNGIN 50 MG in SOD CHLORIDE 0.9% 250 ML IVPB SCH (17:35)
[2019-03-06 20:00] VITALS: BP 140/63; PULSE 79; RESP 18
[2019-03-06] MEDS: ATORVASTATIN 40 MG TAB GTB SCH (21:53)
[2019-03-06] MEDS: INSULIN GLARGINE [LANTus] (100 UNITS/ML) SYG SC SCH (22:04)
[2019-03-06] MEDS: MICONAZOLE 100 MG VAG SUPP VAG SCH (22:05)
[2019-03-07] VITALS (20 sets, daily range): BP systolic 113–144; BP diastolic 45–66; PULSE 85–104; RESP 17–18
[2019-03-07] MEDS: AMPICILLIN 1 GM/NS (PMX) 50 ML IVPB SCH ×3 (05:52→23:50)
[2019-03-07] MEDS: VALPROIC ACID LIQUID CUP 250 MG/5 ML CUP GTB SCH ×3 (05:52→21:34)
[2019-03-07] MEDS: LANSOPRAZOLE 30 MG CAP GTB SCH ×2 (05:53→18:39)
--- NOTE | 2019-03-07 08:20 | CONS ---
Assessment/Plan Assessment/Plan Hospital Course (Demo Recall) 83 yo female presented with severe anemia Interval hx: No acute changes. Per RN, no GI bleeding noted. Bleeding from central line catheter which has not stopped. hgb 7.8. Tolerating tf at 30cc/hr 1. Severe anemia,acute on chronic -GI bleed vs chronic disease -stable -retic 2.6, ferritin 4490, neg FOB 2. End-stage renal disease on dialysis. 3. Urinary tract infection. -positive yeast 4. Dysphagia, status post percutaneous endoscopic gastrostomy tube placement. 5. Hypertension. 6. Behavioral disorder. PLAN: CXR Monitor HH Hold all anti coagulants PPI BID If GI bleeding, noted positive FOB, we will consider push endoscopy Pt examined and plan of care discussed with Dr. Baird. Consultation Date/Type/Reason Admit Date/Time Feb 19, 2019 at 01:01 Initial Consult Date Requesting Provider: JILLIAN HOLLAND MD Date/Time of Note DATE: 03/07/19 TIME: 08:19 Exam/Review of Systems Exam Vitals Vital Signs Date Temp Pulse Resp B/P (MAP) Pulse Ox O2 O2 Flow FiO2 Time Delivery Rate 03/07/19 98.6 89 18 123/58 94 Room Air 07:00 (79) Intake and Output 03/06/19 03/06/19 03/07/19 1515:00 23:00 07:00 IntakeIntake Total 50 ml 300 ml 680 ml OutputOutput Total 400 ml BalanceBalance 50 ml -100 ml 680 ml Constitutional: alert Head: normocephalic Eyes: nl sclera, PERRL ENMT: mucosa pink and moist Respiratory: clear to auscultation, diminished breath sounds (Diminished at b ases and BLANCA, pt using acessory muslces to take breaths) Gastrointestinal: soft, non-tender Musculoskeletal: other (cachexia) 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: confused Results Result Diagram: 03/07/19 0503/07/19512 Results 24hrs Laboratory Tests Test 03/06/19 21:58 03/07/19 05:13 Bedside Glucose 191 White Blood Count 10.1 Red Blood Count 2.83 L Hemoglobin 7.8 L Hematocrit 24.3 L Mean Corpuscular Volume 85.9 Mean Corpuscular Hemoglobin 27.6 L Mean Corpuscular Hemoglobin Concent 32.1 Red Cell Distribution Width 15.8 H Platelet Count 306 Mean Platelet Volume 11.4 H Immature Granulocytes % 1.000 H Neutrophils % 75.3 Lymphocytes % 11.1 L Monocytes % 8.2 Eosinophils % 4.1 Basophils % 0.3 Nucleated Red Blood Cells % 0.5 H Immature Granulocytes # 0.100 H Neutrophils # 7.6 H Lymphocytes # 1.1 Monocytes # 0.8 Eosinophils # 0.4 Basophils # 0.0 Nucleated Red Blood Cells # 0.1 H Sodium Level 134 L Potassium Level 4.0 Chloride Level 101 Carbon Dioxide Level 25 Anion Gap 8 Blood Urea Nitrogen 64 H Creatinine 2.18 H Est Glomerular Filtrat Rate mL/min Glucose Level 131 Calcium Level 8.3 L Phosphorus Level 3.6 Magnesium Level 2.6 H Medications Medication Current Medications IV Flush (NS 3 ml) 3 ml PER PROTOCOL IV ; Start 02/19/19 at 03:30 Lorazepam (Ativan) 0.5 mg Q8H PRN GTB .ANXIETY Last administered on 03/06/19 15:04; Admin Dose 0.5 MG; Start 02/19/19 at 03:30 Ondansetron HCl (Zofran Inj) 4 mg Q6H PRN IV NAUSEA/VOMITING; Start 02/19/19 at 03:30 Acetaminophen (Tylenol Tab) 325 mg Q4H PRN GTB FOR FEVER 100AND ABOVE Last administered on 02/20/19 20:13; Admin Dose 325 MG; Start 02/19/19 at 03:30 Acetaminophen (Tylenol Tab) 650 mg Q6H PRN GTB PAIN LEVEL 1-10/10 Last administered on 02/19/19 21:49; Admin Dose 650 MG; Start 02/19/19 at 03:30 Amlodipine Besylate (Norvasc) 5 mg BID GTB Last administered on 03/06/19 21:53; Admin Dose 5 MG; Start 02/19/19 at 09:00 Ascorbic Acid (Vitamin C) 500 mg DAILY GTB Last administered on 03/06/19 08:35; Admin Dose 500 MG; Start 02/19/19 at 09:00 Aspirin (Aspirin) 81 mg DAILY GTB Last administered on 02/26/19 10:20; Admin Dose 81 MG; Start 02/19/19 at 09:00; Status Hold Atorvastatin Calcium (Lipitor) 40 mg QHS GTB Last administered on 03/06/19 21:53; Admin Dose 40 MG; Start 02/19/19 at 21:00 Ferrous Sulfate (Ferrous Sulfate (Ec)) 325 mg BID PO Last administered on 03/06/19 21:52; Admin Dose 325 MG; Start 02/19/19 at 09:00 Folic Acid (Folic Acid) 1 mg DAILY GTB Last administered on 03/06/19 08:35; Admin Dose 1 MG; Start 02/19/19 at 09:00 Hydralazine HCl (Apresoline) 25 mg Q8 GTB Last administered on 03/07/19 05:53; Admin Dose 25 MG; Start 02/19/19 at 06:00 Linagliptin (Tradjenta) 5 mg DAILY GTB Last administered on 03/06/19 08:36; Admin Dose 5 MG; Start 02/19/19 at 09:00 Lorazepam (Ativan) 0.5 mg HS PRN GTB ANXIETY Last administered on 03/03/19 21:51; Admin Dose 0.5 MG; Start 02/19/19 at 03:30 Metoprolol Tartrate (Lopressor) 50 mg BID GTB Last administered on 03/06/19 21:53; Admin Dose 50 MG; Start 02/19/19 at 09:00 Ondansetron HCl (Zofran Tab) 4 mg Q4H PRN GTB NAUSEA AND/OR VOMITING; Start 02/19/19 at 03:30 Valproate Sodium (Depakene Liquid Cup) 250 mg Q8 GTB Last administered on 03/07/19 05:52; Admin Dose 250 MG; Start 02/19/19 at 06:00 Docusate Sodium (Colace Liquid Cup) 100 mg DAILY GTB Last administered on 03/04/19 08:58; Admin Dose 100 MG; Start 02/19/19 at 09:00 Docusate Sodium (Colace Liquid Cup) 100 mg Q12H PRN GTB CONSTIPATION; Start 02/19/19 at 04:00 Acetaminophen (Tylenol Tab) 650 mg Q6H PRN GTB .PAIN 1-3 OR TEMP Last administered on 02/19/19 11:57; Admin Dose 650 MG; Start 02/19/19 at 03:35 Mupirocin (Bactroban) 1 applic BID TOP Last administered on 03/06/19 21:56; Admin Dose 1 APPLIC; Start 02/22/19 at 14:00 Ampicillin 50 ml @ 100 mls/hr Q8 IVPB Last administered on 03/07/19 05:52; Admin Dose 100 MLS/HR; Start 02/24/19 at 14:00 Insulin Glargine (Lantus) 4 units DAILY@2000 SC Last administered on 03/06/19 22:04; Admin Dose 4 UNITS; Start 02/26/19 at 20:00 Epoetin Michael-epbx (Retacrit (Esrd)) 4,000 unit MoWeFr@1700 SC Last administered on 03/04/19 17:23; Admin Dose 4,000 UNIT; Start 02/28/19 at 17:00 Olanzapine (Zyprexa) 2.5 mg DAILY GTB Last administered on 03/06/19 08:35; Admin Dose 2.5 MG; Start 03/01/19 at 09:00 Lansoprazole (Prevacid) 30 mg BID@0600,1800 GTB Last administered on 03/07/19 05:53; Admin Dose 30 MG; Start 02/28/19 at 18:00 Caspofungin 50 mg/ Sodium Chloride 250 ml @ 250 mls/hr Q24H IVPB Last administered on 03/06/19 17:35; Admin Dose 250 MLS/HR; Start 03/06/19 at 18:00; Stop 03/13/19 at 17:59 Miconazole (Monistat-7) 2 supp HS VAG Last administered on 03/05/19 21:54; Admin Dose 2 SUPP; Start 03/05/19 at 21:00; Stop 03/07/19 at 21:01 TONY VENCES Mar 07, 2019 08:20
[2019-03-07] MEDS: AMLODIPINE 5 MG TAB GTB SCH ×2 (08:58→21:35)
[2019-03-07] MEDS: METOPROLOL 50 MG TAB GTB SCH ×2 (08:58→21:34)
[2019-03-07] MEDS: DOCUSATE SODIUM 10 MG/ML (10ML CUP) GTB SCH (09:00)
[2019-03-07] MEDS: ASCORBIC ACID 500 MG TAB GTB SCH (09:00)
[2019-03-07] MEDS: FERROUS SULFATE (EC) 325 MG TAB PO SCH ×2 (09:00→21:34)
[2019-03-07] MEDS: FOLIC ACID 1 MG TAB GTB SCH (09:00)
[2019-03-07] MEDS: LINAGLIPTIN 5 MG TABLET GTB SCH (09:00)
[2019-03-07] MEDS: OLANZAPINE 2.5 MG TAB GTB SCH (09:00)
[2019-03-07] MEDS: MUPIROCIN 2% 22 GM OINT TOP SCH ×2 (09:01→20:18)
--- NOTE | 2019-03-07 14:49 | CONS ---
Assessment/Plan Assessment/Plan Hospital Course (Demo Recall) In HD, looks comfortable, no fevers Antimicrobials: IV ampicillin Cancidas Indwelling: Left subclavian permacath, PEG Microbiology: Urine culture on admission grew Dominique glabrata, blood culture grew Enterococcus Chest x-ray on admission revealed no definite evidence of pneumonia or CHF Physical examination: This is a chronically ill-appearing wasted elderly woman who is in no distress. Head atraumatic normocephalic. Neck is supple. Chest rise symmetrical breath sounds clear, diminished bases. Heart: S1-S2. Abdomen soft bowel sounds present. Extremities without cyanosis edema. Assessment: 1. S/p sepsis, present on admission 2. Recurrent UTI 3. Bacteremia, rule out infected line 4. End-stage renal disease, hemodialysis dependent 5. Anemia 6. 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 Plan: Clinically stable continue Ampicillin, last dose is March 09 Consultation Date/Type/Reason Admit Date/Time Feb 19, 2019 at 01:01 Initial Consult Date Type of Consult id Requesting Provider: JILLIAN HOLLAND MD Date/Time of Note DATE: 03/07/19 TIME: 14:48 Exam/Review of Systems Exam Vitals Vital Signs Date Temp Pulse Resp B/P (MAP) Pulse Ox O2 O2 Flow FiO2 Time Delivery Rate 03/07/19 98.5 93 18 120/57 92 Room Air 14:00 (78) Intake and Output 03/06/19 03/06/19 03/07/19 1414:59 22:59 06:59 IntakeIntake Total 50 ml 300 ml 680 ml OutputOutput Total 400 ml BalanceBalance 50 ml -100 ml 680 ml Results Result Diagram: 03/07/19 0513 03/07/19 0513 Results 24hrs Laboratory Tests Test 03/06/19 21:58 03/07/19 05:13 03/07/19 08:56 Bedside Glucose 191 108 White Blood Count 10.1 Red Blood Count 2.83 L Hemoglobin 7.8 L Hematocrit 24.3 L Mean Corpuscular Volume 85.9 Mean Corpuscular Hemoglobin 27.6 L Mean Corpuscular Hemoglobin Concent 32.1 Red Cell Distribution Width 15.8 H Platelet Count 306 Mean Platelet Volume 11.4 H Immature Granulocytes % 1.000 H Neutrophils % 75.3 Lymphocytes % 11.1 L Monocytes % 8.2 Eosinophils % 4.1 Basophils % 0.3 Nucleated Red Blood Cells % 0.5 H Immature Granulocytes # 0.100 H Neutrophils # 7.6 H Lymphocytes # 1.1 Monocytes # 0.8 Eosinophils # 0.4 Basophils # 0.0 Nucleated Red Blood Cells # 0.1 H Sodium Level 134 L Potassium Level 4.0 Chloride Level 101 Carbon Dioxide Level 25 Anion Gap 8 Blood Urea Nitrogen 64 H Creatinine 2.18 H Est Glomerular Filtrat Rate mL/min Glucose Level 131 Calcium Level 8.3 L Phosphorus Level 3.6 Magnesium Level 2.6 H Medications Medication Current Medications IV Flush (NS 3 ml) 3 ml PER PROTOCOL IV ; Start 02/19/19 at 03:30 Lorazepam (Ativan) 0.5 mg Q8H PRN GTB .ANXIETY Last administered on 03/06/19 15:04; Admin Dose 0.5 MG; Start 02/19/19 at 03:30 Ondansetron HCl (Zofran Inj) 4 mg Q6H PRN IV NAUSEA/VOMITING; Start 02/19/19 at 03:30 Acetaminophen (Tylenol Tab) 325 mg Q4H PRN GTB FOR FEVER 100AND ABOVE Last administered on 02/20/19 20:13; Admin Dose 325 MG; Start 02/19/19 at 03:30 Acetaminophen (Tylenol Tab) 650 mg Q6H PRN GTB PAIN LEVEL 1-10/10 Last administered on 02/19/19 21:49; Admin Dose 650 MG; Start 02/19/19 at 03:30 Amlodipine Besylate (Norvasc) 5 mg BID GTB Last administered on 03/06/19 21:53; Admin Dose 5 MG; Start 02/19/19 at 09:00 Ascorbic Acid (Vitamin C) 500 mg DAILY GTB Last administered on 03/07/19 09:00; Admin Dose 500 MG; Start 02/19/19 at 09:00 Aspirin (Aspirin) 81 mg DAILY GTB Last administered on 02/26/19 10:20; Admin Dose 81 MG; Start 02/19/19 at 09:00; Status Hold Atorvastatin Calcium (Lipitor) 40 mg QHS GTB Last administered on 03/06/19 21:53; Admin Dose 40 MG; Start 02/19/19 at 21:00 Ferrous Sulfate (Ferrous Sulfate (Ec)) 325 mg BID PO Last administered on 03/07/19 09:00; Admin Dose 325 MG; Start 02/19/19 at 09:00 Folic Acid (Folic Acid) 1 mg DAILY GTB Last administered on 03/07/19 09:00; Admin Dose 1 MG; Start 02/19/19 at 09:00 Hydralazine HCl (Apresoline) 25 mg Q8 GTB Last administered on 03/07/19 05:53; Admin Dose 25 MG; Start 02/19/19 at 06:00 Linagliptin (Tradjenta) 5 mg DAILY GTB Last administered on 03/07/19 09:00; Admin Dose 5 MG; Start 02/19/19 at 09:00 Lorazepam (Ativan) 0.5 mg HS PRN GTB ANXIETY Last administered on 03/03/19 21:51; Admin Dose 0.5 MG; Start 02/19/19 at 03:30 Metoprolol Tartrate (Lopressor) 50 mg BID GTB Last administered on 03/06/19 21:53; Admin Dose 50 MG; Start 02/19/19 at 09:00 Ondansetron HCl (Zofran Tab) 4 mg Q4H PRN GTB NAUSEA AND/OR VOMITING; Start 02/19/19 at 03:30 Valproate Sodium (Depakene Liquid Cup) 250 mg Q8 GTB Last administered on 03/07/19 14:28; Admin Dose 250 MG; Start 02/19/19 at 06:00 Docusate Sodium (Colace Liquid Cup) 100 mg DAILY GTB Last administered on 03/07/19 09:00; Admin Dose 100 MG; Start 02/19/19 at 09:00 Docusate Sodium (Colace Liquid Cup) 100 mg Q12H PRN GTB CONSTIPATION; Start 02/19/19 at 04:00 Acetaminophen (Tylenol Tab) 650 mg Q6H PRN GTB .PAIN 1-3 OR TEMP Last administered on 02/19/19 11:57; Admin Dose 650 MG; Start 02/19/19 at 03:35 Mupirocin (Bactroban) 1 applic BID TOP Last administered on 03/07/19 09:01; Admin Dose 1 APPLIC; Start 02/22/19 at 14:00 Ampicillin 50 ml @ 100 mls/hr Q8 IVPB Last administered on 03/07/19 05:52; Admin Dose 100 MLS/HR; Start 02/24/19 at 14:00 Insulin Glargine (Lantus) 4 units DAILY@2000 SC Last administered on 03/06/19 22:04; Admin Dose 4 UNITS; Start 02/26/19 at 20:00 Epoetin Michael-epbx (Retacrit (Esrd)) 4,000 unit MoWeFr@1700 SC Last administered on 03/04/19 17:23; Admin Dose 4,000 UNIT; Start 02/28/19 at 17:00 Olanzapine (Zyprexa) 2.5 mg DAILY GTB Last administered on 03/07/19 09:00; Admin Dose 2.5 MG; Start 03/01/19 at 09:00 Lansoprazole (Prevacid) 30 mg BID@0600,1800 GTB Last administered on 03/07/19 05:53; Admin Dose 30 MG; Start 02/28/19 at 18:00 Caspofungin 50 mg/ Sodium Chloride 250 ml @ 250 mls/hr Q24H IVPB Last admi nistered on 03/06/19 17:35; Admin Dose 250 MLS/HR; Start 03/06/19 at 18:00; Stop 03/13/19 at 17:59 Miconazole (Monistat-7) 2 supp HS VAG Last administered on 03/05/19 21:54; Admin Dose 2 SUPP; Start 03/05/19 at 21:00; Stop 03/07/19 at 21:01 PHYLICIA HOLCOMB NP Mar 07, 2019 14:49
--- NOTE | 2019-03-07 16:11 | CONS ---
Assessment/Plan Assessment/Plan Assessment/Plan (Daily) Hospital Course (Demo Recall) 1. Fevers, likely secondary to urinary tract infection, now bld cx positive gram + Entercoccus s/p permcath excahnge 2. End-stage renal disease on hemodialysis. 3. Urinary tract infection.WITH Dominique 4. Hypertension. 5. Dementia. 6. Diabetes mellitus type II. 7. Diastolic heart failure. 8. Moderate protein energy malnutrition with cachexia. 9. Osteoarthritis. 10. GT status 11. Anemia of chronic disease Assessment/Plan (Daily) - bleeding from HD cath stopped, no heparin -c/w HD,mwf -a/b per ID, repeat cx neg so far -strict I and O -Left Chest Perm cath functioning. -c/w epoetin 3 times a week Consultation Date/Type/Reason Admit Date/Time Feb 19, 2019 at 01:01 Initial Consult Date Requesting Provider: JILLIAN HOLLAND MD Date/Time of Note DATE: 03/07/19 TIME: 16:10 24 HR Interval Summary Free Text/Dictation getting Hd TODAY Exam/Review of Systems Exam Vitals Vital Signs Date Temp Pulse Resp B/P (MAP) Pulse Ox O2 O2 Flow FiO2 Time Delivery Rate 03/07/19 96 16:05 03/07/19 17 121/57 95 Room Air 15:26 (78) 03/07/19 98.5 14:00 Intake and Output 03/06/19 03/06/19 03/07/19 1515:00 23:00 07:00 IntakeIntake Total 50 ml 300 ml 680 ml OutputOutput Total 400 ml BalanceBalance 50 ml -100 ml 680 ml Exam left chest Perm cath Constitutional: frail Psych: no complaints Head: normocephalic Respiratory: diminished breath sounds Cardiovascular: regular rate and rhythm Gastrointestinal: soft, other (GT ) Results Result Diagram: 03/07/19 0513 03/07/19 0513 Results 24hrs Laboratory Tests Test 03/06/19 21:58 03/07/19 05:13 03/07/19 08:56 Bedside Glucose 191 108 White Blood Count 10.1 Red Blood Count 2.83 L Hemoglobin 7.8 L Hematocrit 24.3 L Mean Corpuscular Volume 85.9 Mean Corpuscular Hemoglobin 27.6 L Mean Corpuscular Hemoglobin Concent 32.1 Red Cell Distribution Width 15.8 H Platelet Count 306 Mean Platelet Volume 11.4 H Immature Granulocytes % 1.000 H Neutrophils % 75.3 Lymphocytes % 11.1 L Monocytes % 8.2 Eosinophils % 4.1 Basophils % 0.3 Nucleated Red Blood Cells % 0.5 H Immature Granulocytes # 0.100 H Neutrophils # 7.6 H Lymphocytes # 1.1 Monocytes # 0.8 Eosinophils # 0.4 Basophils # 0.0 Nucleated Red Blood Cells # 0.1 H Sodium Level 134 L Potassium Level 4.0 Chloride Level 101 Carbon Dioxide Level 25 Anion Gap 8 Blood Urea Nitrogen 64 H Creatinine 2.18 H Est Glomerular Filtrat Rate mL/min Glucose Level 131 Calcium Level 8.3 L Phosphorus Level 3.6 Magnesium Level 2.6 H Medications Medication Current Medications IV Flush (NS 3 ml) 3 ml PER PROTOCOL IV ; Start 02/19/19 at 03:30 Lorazepam (Ativan) 0.5 mg Q8H PRN GTB .ANXIETY Last administered on 03/06/19 15:04; Admin Dose 0.5 MG; Start 02/19/19 at 03:30 Ondansetron HCl (Zofran Inj) 4 mg Q6H PRN IV NAUSEA/VOMITING; Start 02/19/19 at 03:30 Acetaminophen (Tylenol Tab) 325 mg Q4H PRN GTB FOR FEVER 100AND ABOVE Last administered on 02/20/19 20:13; Admin Dose 325 MG; Start 02/19/19 at 03:30 Acetaminophen (Tylenol Tab) 650 mg Q6H PRN GTB PAIN LEVEL 1-10/10 Last administered on 02/19/19 21:49; Admin Dose 650 MG; Start 02/19/19 at 03:30 Amlodipine Besylate (Norvasc) 5 mg BID GTB Last administered on 03/06/19 21:53; Admin Dose 5 MG; Start 02/19/19 at 09:00 Ascorbic Acid (Vitamin C) 500 mg DAILY GTB Last administered on 03/07/19 09:00; Admin Dose 500 MG; Start 02/19/19 at 09:00 Aspirin (Aspirin) 81 mg DAILY GTB Last administered on 02/26/19 10:20; Admin Dose 81 MG; Start 02/19/19 at 09:00; Status Hold Atorvastatin Calcium (Lipitor) 40 mg QHS GTB Last administered on 03/06/19 21:53; Admin Dose 40 MG; Start 02/19/19 at 21:00 Ferrous Sulfate (Ferrous Sulfate (Ec)) 325 mg BID PO Last administered on 03/07/19 09:00; Admin Dose 325 MG; Start 02/19/19 at 09:00 Folic Acid (Folic Acid) 1 mg DAILY GTB Last administered on 03/07/19 09:00; Admin Dose 1 MG; Start 02/19/19 at 09:00 Hydralazine HCl (Apresoline) 25 mg Q8 GTB Last administered on 03/07/19 05:53; Admin Dose 25 MG; Start 02/19/19 at 06:00 Linagliptin (Tradjenta) 5 mg DAILY GTB Last administered on 03/07/19 09:00; Admin Dose 5 MG; Start 02/19/19 at 09:00 Lorazepam (Ativan) 0.5 mg HS PRN GTB ANXIETY Last administered on 03/03/19 21:51; Admin Dose 0.5 MG; Start 02/19/19 at 03:30 Metoprolol Tartrate (Lopressor) 50 mg BID GTB Last administered on 03/06/19 21:53; Admin Dose 50 MG; Start 02/19/19 at 09:00 Ondansetron HCl (Zofran Tab) 4 mg Q4H PRN GTB NAUSEA AND/OR VOMITING; Start 02/19/19 at 03:30 Valproate Sodium (Depakene Liquid Cup) 250 mg Q8 GTB Last administered on 03/07/19 14:28; Admin Dose 250 MG; Start 02/19/19 at 06:00 Docusate Sodium (Colace Liquid Cup) 100 mg DAILY GTB Last administered on 03/07/19 09:00; Admin Dose 100 MG; Start 02/19/19 at 09:00 Docusate Sodium (Colace Liquid Cup) 100 mg Q12H PRN GTB CONSTIPATION; Start 02/19/19 at 04:00 Acetaminophen (Tylenol Tab) 650 mg Q6H PRN GTB .PAIN 1-3 OR TEMP Last admin istered on 02/19/19 11:57; Admin Dose 650 MG; Start 02/19/19 at 03:35 Mupirocin (Bactroban) 1 applic BID TOP Last administered on 03/07/19 09:01; Admin Dose 1 APPLIC; Start 02/22/19 at 14:00 Ampicillin 50 ml @ 100 mls/hr Q8 IVPB Last administered on 03/07/19 05:52; Admin Dose 100 MLS/HR; Start 02/24/19 at 14:00 Insulin Glargine (Lantus) 4 units DAILY@2000 SC Last administered on 03/06/19 22:04; Admin Dose 4 UNITS; Start 02/26/19 at 20:00 Epoetin Michael-epbx (Retacrit (Esrd)) 4,000 unit MoWeFr@1700 SC Last administered on 03/04/19 17:23; Admin Dose 4,000 UNIT; Start 02/28/19 at 17:00 Olanzapine (Zyprexa) 2.5 mg DAILY GTB Last administered on 03/07/19 09:00; Admin Dose 2.5 MG; Start 03/01/19 at 09:00 Lansoprazole (Prevacid) 30 mg BID@0600,1800 GTB Last administered on 03/07/19 05:53; Admin Dose 30 MG; Start 02/28/19 at 18:00 Caspofungin 50 mg/ Sodium Chloride 250 ml @ 250 mls/hr Q24H IVPB Last administered on 03/06/19 17:35; Admin Dose 250 MLS/HR; Start 03/06/19 at 18:00; Stop 03/13/19 at 17:59 Miconazole (Monistat-7) 2 supp HS VAG Last administered on 03/05/19 21:54; A dmin Dose 2 SUPP; Start 03/05/19 at 21:00; Stop 03/07/19 at 21:01 JOSE RAUL ANDREWS MD Mar 07, 2019 16:11
[2019-03-07] MEDS: EPOETIN ALFA-EPBX (ESRD) 4,000 UNIT/ML VIAL SC SCH (18:40)
--- NOTE | 2019-03-07 19:27 | PN ---
DATE: 03/07/2019 SUBJECTIVE: The patient seen currently with a finishing course of dialysis. Epogen to be given luis knight. The patient's hemoglobin did drop slightly to 7.8. We will continue to monitor. Hold trans fusion for now unless there is further drop. PHYSICAL EXAMINATION: VITAL SIGNS: Temperature is 98.5, pulse is 103, respirations 17, blood pressure 120/57, saturation 9 5% on room air. GENERAL: No acute distress. CARDIOVASCULAR: S1, S2. LUNGS: Clear. ABDOMEN: Soft. G-tube in place. EXTREMITIES: No clubbing, cyanosis, or edema. LABORATORY DATA: White count 10.1, hemoglobin 7.8, hematocrit 24, platelet count of 306, neutrophils 75%, . Chemistry: Sodium 134, potassium 4.0, chloride 101, bicarb 25, BUN is 64, creatinine 2 .1 and glucose 131. The patient's chest x-ray done today shows moderate interstitial edema with smal l left pleural effusion. Again, since then she has been dialyzed. MEDICATIONS: 1. Caspofungin IV dose per pharmacy. 2. Miconazole suppository vaginally at bedtime. 3. Zyprexa 2.5 daily. 4. Prevacid 30 mg b.i.d. 5. Epogen as directed. 6. Lantus 4 units every day. 7. Ampicillin IV q.8. 8. Bactroban b.i.d. 9. Lipitor 40 at bedtime. 10. Norvasc 5 mg b.i.d. 11. Vitamin C 500 mg daily. 12. Ferrous sulfate 325 b.i.d. 13. Folic acid 1 mg daily. 14. Tradjenta 5 mg daily. 15. Lopressor 50 b.i.d. 16. Colace 100 daily. 17. Hydralazine 25 q.8. 18. Depakote 250 q.8. 19. Tylenol. 20. Ativan. 21. Zofran p.r.n. ASSESSMENT AND PLAN: This is an unfortunate 83-year-old [place] female with history of advanced vas cular dementia, end-stage renal disease on dialysis every Thursday, Thursday and Thursday, diabetes michael itus, overall controlled, who presented to the hospital with fevers, was found to have UTI bacteremia , line sepsis. 1. Respiratory. Chest x-ray does show fluid overload state. The patient is being dialyzed now. Lungs are clear. Clinically stable. 2. Cardiovascular. Continue above blood pressure medication. Off aspirin due to recurrent gastroin testinal bleed. 3. Anemia. Continue Epogen. Transfuse p.r.n. 4. Continue Prevacid for gastrointestinal prophylaxis. 5. End-stage renal disease on dialysis every Thursday, Thursday and Thursday. 6. Dysphagia. Continue G-tube feeding at 30 mL an hour with head elevation. Tolerating it well. 7. Urinary tract infection with organism Dominique glabrata. Continue Cancidas. 8. Anxiety, on antipsychotics. 9. Disposition when bed is available at the senior care facility. Unfortunately, the patient is to be monitored. She is high risk of fall. manager state as well. manager state is trying to place the patient. We will follow. Dictated By: DYLON HULL/MADAN Conf#: [id number] DID#: [id number]
[2019-03-07] MEDS: CASPOFUNGIN 50 MG in SOD CHLORIDE 0.9% 250 ML IVPB SCH (20:14)
[2019-03-07] MEDS: INSULIN GLARGINE [LANTus] (100 UNITS/ML) SYG SC SCH (20:18)
[2019-03-07] MEDS: MICONAZOLE 100 MG VAG SUPP VAG SCH (21:00)
[2019-03-07] MEDS: LORAZEPAM 0.5 MG TAB GTB PRN (21:33)
[2019-03-07] MEDS: ATORVASTATIN 40 MG TAB GTB SCH (21:33)
[2019-03-08 02:00] VITALS: BP 122/58; PULSE 84; RESP 18
[2019-03-08] MEDS: AMPICILLIN 1 GM/NS (PMX) 50 ML IVPB SCH ×3 (05:13→22:10)
[2019-03-08] MEDS: VALPROIC ACID LIQUID CUP 250 MG/5 ML CUP GTB SCH ×3 (05:13→22:10)
[2019-03-08] MEDS: LANSOPRAZOLE 30 MG CAP GTB SCH ×2 (05:13→18:09)
[2019-03-08 08:08] VITALS: BP 132/60; PULSE 93; RESP 18
--- NOTE | 2019-03-08 09:33 | CONS ---
Assessment/Plan Assessment/Plan Hospital Course (Demo Recall) 83 yo female presented with severe anemia Interval hx: No acute changes. Per RN, no GI bleeding noted. hgb 7.7. Tolerating tf at 30cc/hr. 1. Severe anemia,acute on chronic -GI bleed vs chronic disease -stable -retic 2.6, ferritin 4490, neg FOB 2. End-stage renal disease on dialysis. 3. Urinary tract infection. -positive yeast 4. Dysphagia, status post percutaneous endoscopic gastrostomy tube placement. 5. Hypertension. 6. Behavioral disorder. PLAN: Monitor HH Hold all anti coagulants PPI BID If GI bleeding, noted positive FOB, we will consider push endoscopy Pt examined and plan of care discussed with Dr. Baird. Consultation Date/Type/Reason Admit Date/Time Feb 19, 2019 at 01:01 Initial Consult Date Requesting Provider: JILLIAN HOLLAND MD Date/Time of Note DATE: 03/08/19 TIME: 09:30 Exam/Review of Systems Exam Vitals Vital Signs Date Temp Pulse Resp B/P (MAP) Pulse Ox O2 O2 Flow FiO2 Time Delivery Rate 03/08/19 98.3 93 18 132/60 96 Room Air 08:08 (84) Intake and Output 03/07/19 03/07/19 03/08/19 1414:59 22:59 06:59 IntakeIntake Total 300 ml 100 ml OutputOutput Total 2300 ml BalanceBalance -2000 ml 100 ml Psych: no complaints Respiratory: normal air movement, other (non labored) Gastrointestinal: soft, non-tender, bowel sounds 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: confused Results Result Diagram: 03/08/19 0513 03/08/19 0513 Results 24hrs Laboratory Tests Test 03/07/19 20:16 03/08/19 05:13 Bedside Glucose 144 White Blood Count 9.7 Red Blood Count 2.83 L Hemoglobin 7.7 L Hematocrit 24.4 L Mean Corpuscular Volume 86.2 Mean Corpuscular Hemoglobin 27.2 L Mean Corpuscular Hemoglobin Concent 31.6 L Red Cell Distribution Width 15.9 H Platelet Count 308 Mean Platelet Volume 11.1 H Immature Granulocytes % 1.300 H Neutrophils % 75.3 Lymphocytes % 8.3 L Monocytes % 11.8 H Eosinophils % 3.0 Basophils % 0.3 Nucleated Red Blood Cells % 0.9 H Immature Granulocytes # 0.130 H Neutrophils # 7.3 Lymphocytes # 0.8 Monocytes # 1.1 H Eosinophils # 0.3 Basophils # 0.0 Nucleated Red Blood Cells # 0.1 H Sodium Level 137 Potassium Level 4.0 Chloride Level 105 Carbon Dioxide Level 27 Anion Gap 5 Blood Urea Nitrogen 28 #H Creatinine 1.26 H Est Glomerular Filtrat Rate mL/min Glucose Level 150 Calcium Level 8.9 Phosphorus Level 2.4 #L Magnesium Level 2.3 Medications Medication Current Medications IV Flush (NS 3 ml) 3 ml PER PROTOCOL IV ; Start 02/19/19 at 03:30 Lorazepam (Ativan) 0.5 mg Q8H PRN GTB .ANXIETY Last administered on 03/06/19 15:04; Admin Dose 0.5 MG; Start 02/19/19 at 03:30 Ondansetron HCl (Zofran Inj) 4 mg Q6H PRN IV NAUSEA/VOMITING; Start 02/19/19 at 03:30 Acetaminophen (Tylenol Tab) 325 mg Q4H PRN GTB FOR FEVER 100AND ABOVE Last administered on 02/20/19 20:13; Admin Dose 325 MG; Start 02/19/19 at 03:30 Acetaminophen (Tylenol Tab) 650 mg Q6H PRN GTB PAIN LEVEL 1-10/10 Last adminis tered on 02/19/19 21:49; Admin Dose 650 MG; Start 02/19/19 at 03:30 Amlodipine Besylate (Norvasc) 5 mg BID GTB Last administered on 03/07/19 21:35; Admin Dose 5 MG; Start 02/19/19 at 09:00 Ascorbic Acid (Vitamin C) 500 mg DAILY GTB Last administered on 03/07/19 09:00; Admin Dose 500 MG; Start 02/19/19 at 09:00 Aspirin (Aspirin) 81 mg DAILY GTB Last administered on 02/26/19 10:20; Admin Dose 81 MG; Start 02/19/19 at 09:00; Status Hold Atorvastatin Calcium (Lipitor) 40 mg QHS GTB Last administered on 03/07/19 21:33; Admin Dose 40 MG; Start 02/19/19 at 21:00 Folic Acid (Folic Acid) 1 mg DAILY GTB Last administered on 03/07/19 09:00; Admin Dose 1 MG; Start 02/19/19 at 09:00 Hydralazine HCl (Apresoline) 25 mg Q8 GTB Last administered on 03/08/19 05:15; Admin Dose 25 MG; Start 02/19/19 at 06:00 Linagliptin (Tradjenta) 5 mg DAILY GTB Last administered on 03/07/19 09:00; Admin Dose 5 MG; Start 02/19/19 at 09:00 Lorazepam (Ativan) 0.5 mg HS PRN GTB ANXIETY Last administered on 03/07/19 21:33; Admin Dose 0.5 MG; Start 02/19/19 at 03:30 Metoprolol Tartrate (Lopressor) 50 mg BID GTB Last administered on 03/07/19 21:34; Admin Dose 50 MG; Start 02/19/19 at 09:00 Ondansetron HCl (Zofran Tab) 4 mg Q4H PRN GTB NAUSEA AND/OR VOMITING; Start 02/19/19 at 03:30 Valproate Sodium (Depakene Liquid Cup) 250 mg Q8 GTB Last administered on 03/08/19 05:13; Admin Dose 250 MG; Start 02/19/19 at 06:00 Docusate Sodium (Colace Liquid Cup) 100 mg DAILY GTB Last administered on 03/07/19 09:00; Admin Dose 100 MG; Start 02/19/19 at 09:00 Docusate Sodium (Colace Liquid Cup) 100 mg Q12H PRN GTB CONSTIPATION; Start 02/19/19 at 04:00 Acetaminophen (Tylenol Tab) 650 mg Q6H PRN GTB .PAIN 1-3 OR TEMP Last administered on 02/19/19 11:57; Admin Dose 650 MG; Start 02/19/19 at 03:35 Mupirocin (Bactroban) 1 applic BID TOP Last administered on 03/07/19 20:18; Admin Dose 1 APPLIC; Start 02/22/19 at 14:00 Ampicillin 50 ml @ 100 mls/hr Q8 IVPB Last administered on 03/08/19 05:13; Admin Dose 100 MLS/HR; Start 02/24/19 at 14:00 Insulin Glargine (Lantus) 4 units DAILY@2000 SC Last administered on 03/07/19 20:18; Admin Dose 4 UNITS; Start 02/26/19 at 20:00 Epoetin Michael-epbx (Retacrit (Esrd)) 4,000 unit MoWeFr@1700 SC Last administered on 03/07/19at 18:40; Admin Dose 4,000 UNIT; Start 02/28/19 at 17:00 Olanzapine (Zyprexa) 2.5 mg DAILY GTB Last administered on 03/07/19at 09:00; Ad min Dose 2.5 MG; Start 03/01/19 at 09:00 Lansoprazole (Prevacid) 30 mg BID@0600,1800 GTB Last administered on 03/08/19at 05:13; Admin Dose 30 MG; Start 02/28/19 at 18:00 Caspofungin 50 mg/ Sodium Chloride 250 ml @ 250 mls/hr Q24H IVPB Last administered on 03/07/19at 20:14; Admin Dose 250 MLS/HR; Start 03/06/19 at 18:00; Stop 03/13/19 at 17:59 Ferrous Sulfate (Feosol Liquid Cup) 300 mg BID GTB ; Start 03/08/19 at 09:00 TONY VENCES Mar 08, 2019 09:33
[2019-03-08] MEDS: OLANZAPINE 2.5 MG TAB GTB SCH (09:37)
[2019-03-08] MEDS: DOCUSATE SODIUM 10 MG/ML (10ML CUP) GTB SCH (09:37)
[2019-03-08] MEDS: FERROUS SULFATE 60 MG/ML 5ML CUP GTB SCH ×2 (09:37→20:27)
[2019-03-08] MEDS: ASCORBIC ACID 500 MG TAB GTB SCH (09:38)
[2019-03-08] MEDS: METOPROLOL 50 MG TAB GTB SCH ×2 (09:38→20:27)
[2019-03-08] MEDS: FOLIC ACID 1 MG TAB GTB SCH (09:38)
[2019-03-08] MEDS: AMLODIPINE 5 MG TAB GTB SCH ×2 (09:39→20:28)
[2019-03-08] MEDS: MUPIROCIN 2% 22 GM OINT TOP SCH ×2 (09:40→20:29)
[2019-03-08] MEDS: LINAGLIPTIN 5 MG TABLET GTB SCH (10:02)
--- NOTE | 2019-03-08 12:11 | CONS ---
Assessment/Plan Assessment/Plan Hospital Course (Demo Recall) No events, all noted, no fevers Antimicrobials: IV ampicillin, Cancidas Indwelling: Left subclavian permacath, PEG Microbiology: Urine culture on admission grew Dominique glabrata, blood culture grew Enterococcus Chest x-ray on admission revealed no definite evidence of pneumonia or CHF Physical examination: This is a chronically ill-appearing wasted elderly woman who is in no distress. Head atraumatic normocephalic. Neck is supple. Chest rise symmetrical breath sounds clear, diminished bases. Heart: S1-S2. Abdomen soft bowel sounds present. Extremities without cyanosis edema. Assessment: 1. S/p sepsis, present on admission 2. Recurrent UTI 3. Bacteremia, rule out infected line 4. End-stage renal disease, hemodialysis dependent 5. Anemia 6. 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 Plan: Remains stable, completing abx Consultation Date/Type/Reason Admit Date/Time Feb 19, 2019 at 01:01 Initial Consult Date Type of Consult id Requesting Provider: JILLIAN HOLLAND MD Date/Time of Note DATE: 03/08/19 TIME: 12:10 Exam/Review of Systems Exam Vitals Vital Signs Date Temp Pulse Resp B/P (MAP) Pulse Ox O2 O2 Flow FiO2 Time Delivery Rate 03/08/19 98.3 93 18 132/60 96 Room Air 08:08 (84) Intake and Output 03/07/19 03/07/19 03/08/19 1515:00 23:00 07:00 IntakeIntake Total 300 ml 100 ml OutputOutput Total 2300 ml BalanceBalance -2000 ml 100 ml Results Result Diagram: 03/08/19 0513 03/08/19 0513 Results 24hrs Laboratory Tests Test 03/07/19 20:16 03/08/19 05:13 03/08/19 09:59 Bedside Glucose 144 148 White Blood Count 9.7 Red Blood Count 2.83 L Hemoglobin 7.7 L Hematocrit 24.4 L Mean Corpuscular Volume 86.2 Mean Corpuscular Hemoglobin 27.2 L Mean Corpuscular Hemoglobin Concent 31.6 L Red Cell Distribution Width 15.9 H Platelet Count 308 Mean Platelet Volume 11.1 H Immature Granulocytes % 1.300 H Neutrophils % 75.3 Lymphocytes % 8.3 L Monocytes % 11.8 H Eosinophils % 3.0 Basophils % 0.3 Nucleated Red Blood Cells % 0.9 H Immature Granulocytes # 0.130 H Neutrophils # 7.3 Lymphocytes # 0.8 Monocytes # 1.1 H Eosinophils # 0.3 Basophils # 0.0 Nucleated Red Blood Cells # 0.1 H Sodium Level 137 Potassium Level 4.0 Chloride Level 105 Carbon Dioxide Level 27 Anion Gap 5 Blood Urea Nitrogen 28 #H Creatinine 1.26 H Est Glomerular Filtrat Rate mL/min Glucose Level 150 Calcium Level 8.9 Phosphorus Level 2.4 #L Magnesium Level 2.3 Medications Medication Current Medications IV Flush (NS 3 ml) 3 ml PER PROTOCOL IV ; Start 02/19/19 at 03:30 Lorazepam (Ativan) 0.5 mg Q8H PRN GTB .ANXIETY Last administered on 03/06/19 15:04; Admin Dose 0.5 MG; Start 02/19/19 at 03:30 Ondansetron HCl (Zofran Inj) 4 mg Q6H PRN IV NAUSEA/VOMITING; Start 02/19/19 at 03:30 Acetaminophen (Tylenol Tab) 325 mg Q4H PRN GTB FOR FEVER 100AND ABOVE Last administered on 02/20/19 20:13; Admin Dose 325 MG; Start 02/19/19 at 03:30 Acetaminophen (Tylenol Tab) 650 mg Q6H PRN GTB PAIN LEVEL 1-10/10 Last administered on 02/19/19 21:49; Admin Dose 650 MG; Start 02/19/19 at 03:30 Amlodipine Besylate (Norvasc) 5 mg BID GTB Last administered on 03/08/19 09:39; Admin Dose 5 MG; Start 02/19/19 at 09:00 Ascorbic Acid (Vitamin C) 500 mg DAILY GTB Last administered on 03/08/19 09:38; Admin Dose 500 MG; Start 02/19/19 at 09:00 Aspirin (Aspirin) 81 mg DAILY GTB Last administered on 02/26/19 10:20; Admin Dose 81 MG; Start 02/19/19 at 09:00; Status Hold Atorvastatin Calcium (Lipitor) 40 mg QHS GTB Last administered on 03/07/19 21:33; Admin Dose 40 MG; Start 02/19/19 at 21:00 Folic Acid (Folic Acid) 1 mg DAILY GTB Last administered on 03/08/19 09:38; Admin Dose 1 MG; Start 02/19/19 at 09:00 Hydralazine HCl (Apresoline) 25 mg Q8 GTB Last administered on 03/08/19 05:15; Admin Dose 25 MG; Start 02/19/19 at 06:00 Linagliptin (Tradjenta) 5 mg DAILY GTB Last administered on 03/08/19 10:02; Admin Dose 5 MG; Start 02/19/19 at 09:00 Lorazepam (Ativan) 0.5 mg HS PRN GTB ANXIETY Last administered on 03/07/19 21:33; Admin Dose 0.5 MG; Start 02/19/19 at 03:30 Metoprolol Tartrate (Lopressor) 50 mg BID GTB Last administered on 03/08/19 09:38; Admin Dose 50 MG; Start 02/19/19 at 09:00 Ondansetron HCl (Zofran Tab) 4 mg Q4H PRN GTB NAUSEA AND/OR VOMITING; Start 02/19/19 at 03:30 Valproate Sodium (Depakene Liquid Cup) 250 mg Q8 GTB Last administered on 03/08/19 05:13; Admin Dose 250 MG; Start 02/19/19 at 06:00 Docusate Sodium (Colace Liquid Cup) 100 mg DAILY GTB Last administered on 03/08/19 09:37; Admin Dose 100 MG; Start 02/19/19 at 09:00 Docusate Sodium (Colace Liquid Cup) 100 mg Q12H PRN GTB CONSTIPATION; Start 02/19/19 at 04:00 Acetaminophen (Tylenol Tab) 650 mg Q6H PRN GTB .PAIN 1-3 OR TEMP Last ad ministered on 02/19/19 11:57; Admin Dose 650 MG; Start 02/19/19 at 03:35 Mupirocin (Bactroban) 1 applic BID TOP Last administered on 03/08/19 09:40; Admin Dose 1 APPLIC; Start 02/22/19 at 14:00 Ampicillin 50 ml @ 100 mls/hr Q8 IVPB Last administered on 03/08/19 05:13; Admin Dose 100 MLS/HR; Start 02/24/19 at 14:00 Insulin Glargine (Lantus) 4 units DAILY@2000 SC Last administered on 03/07/19 20:18; Admin Dose 4 UNITS; Start 02/26/19 at 20:00 Epoetin Michael-epbx (Retacrit (Esrd)) 4,000 unit MoWeFr@1700 SC Last administered on 03/07/19 18:40; Admin Dose 4,000 UNIT; Start 02/28/19 at 17:00 Olanzapine (Zyprexa) 2.5 mg DAILY GTB Last administered on 03/08/19 09:37; Admin Dose 2.5 MG; Start 03/01/19 at 09:00 Lansoprazole (Prevacid) 30 mg BID@0600,1800 GTB Last administered on 03/08/19 05:13; Admin Dose 30 MG; Start 02/28/19 at 18:00 Caspofungin 50 mg/ Sodium Chloride 250 ml @ 250 mls/hr Q24H IVPB Last administered on 03/07/19at 20:14; Admin Dose 250 MLS/HR; Start 03/06/19 at 18:00; Stop 03/13/19 at 17:59 Ferrous Sulfate (Feosol Liquid Cup) 300 mg BID GTB Last administered on 09:37; Admin Dose 300 MG; Start 03/08/19 at 09:00 PHYLICIA HOLCOMB NP Mar 08, 2019 12:11
[2019-03-08 13:50] VITALS: BP 135/63; PULSE 83; RESP 18
--- NOTE | 2019-03-08 15:49 | CONS ---
Assessment/Plan Assessment/Plan Assessment/Plan (Daily) 1. Fevers, likely secondary to urinary tract infection, now bld cx positive gram + Entercoccus s/p permcath excahnge 2. End-stage renal disease on hemodialysis. 3. Urinary tract infection.WITH Dominique 4. Hypertension. 5. Dementia. 6. Diabetes mellitus type II. 7. Diastolic heart failure. 8. Moderate protein energy malnutrition with cachexia. 9. Osteoarthritis. 10. GT status 11. Anemia of chronic disease Assessment/Plan (Daily) - bleeding from HD cath stopped, no heparin -c/w HD,mwf -a/b per ID, repeat cx neg so far -strict I and O -Left Chest Perm cath functioning. -c/w epoetin 3 times a week Consultation Date/Type/Reason Admit Date/Time Feb 19, 2019 at 01:01 Initial Consult Date Requesting Provider: JILLIAN HOLLAND MD Date/Time of Note DATE: 03/08/19 TIME: 15:48 24 HR Interval Summary Free Text/Dictation no acute events no cp/sob lethargic Exam/Review of Systems Exam Vitals Vital Signs Date Temp Pulse Resp B/P (MAP) Pulse Ox O2 O2 Flow FiO2 Time Delivery Rate 03/08/19 98.0 83 18 135/63 96 Room Air 13:50 (87) Intake and Output 03/07/19 03/07/19 03/08/19 1414:59 22:59 06:59 IntakeIntake Total 300 ml 100 ml OutputOutput Total 2300 ml BalanceBalance -2000 ml 100 ml Exam Exam left chest Perm cath Constitutional: frail Psych: no complaints Head: normocephalic Respiratory: diminished breath sounds Cardiovascular: regular rate and rhythm Gastrointestinal: soft, other (GT ) Results Result Diagram: 03/08/19 0513 03/08/19 0513 Results 24hrs Laboratory Tests Test 03/07/19 20:16 03/08/19 05:13 03/08/19 09:59 Bedside Glucose 144 148 White Blood Count 9.7 Red Blood Count 2.83 L Hemoglobin 7.7 L Hematocrit 24.4 L Mean Corpuscular Volume 86.2 Mean Corpuscular Hemoglobin 27.2 L Mean Corpuscular Hemoglobin Concent 31.6 L Red Cell Distribution Width 15.9 H Platelet Count 308 Mean Platelet Volume 11.1 H Immature Granulocytes % 1.300 H Neutrophils % 75.3 Lymphocytes % 8.3 L Monocytes % 11.8 H Eosinophils % 3.0 Basophils % 0.3 Nucleated Red Blood Cells % 0.9 H Immature Granulocytes # 0.130 H Neutrophils # 7.3 Lymphocytes # 0.8 Monocytes # 1.1 H Eosinophils # 0.3 Basophils # 0.0 Nucleated Red Blood Cells # 0.1 H Sodium Level 137 Potassium Level 4.0 Chloride Level 105 Carbon Dioxide Level 27 Anion Gap 5 Blood Urea Nitrogen 28 #H Creatinine 1.26 H Est Glomerular Filtrat Rate mL/min Glucose Level 150 Calcium Level 8.9 Phosphorus Level 2.4 #L Magnesium Level 2.3 Medications Medication Current Medications IV Flush (NS 3 ml) 3 ml PER PROTOCOL IV ; Start 02/19/19 at 03:30 Lorazepam (Ativan) 0.5 mg Q8H PRN GTB .ANXIETY Last administered on 03/06/19 15:04; Admin Dose 0.5 MG; Start 02/19/19 at 03:30 Ondansetron HCl (Zofran Inj) 4 mg Q6H PRN IV NAUSEA/VOMITING; Start 02/19/19 at 03:30 Acetaminophen (Tylenol Tab) 325 mg Q4H PRN GTB FOR FEVER 100AND ABOVE Last administered on 02/20/19 20:13; Admin Dose 325 MG; Start 02/19/19 at 03:30 Acetaminophen (Tylenol Tab) 650 mg Q6H PRN GTB PAIN LEVEL 1-10/10 Last administered on 02/19/19 21:49; Admin Dose 650 MG; Start 02/19/19 at 03:30 Amlodipine Besylate (Norvasc) 5 mg BID GTB Last administered on 03/08/19 09:39; Admin Dose 5 MG; Start 02/19/19 at 09:00 Ascorbic Acid (Vitamin C) 500 mg DAILY GTB Last administered on 03/08/19 09:38; Admin Dose 500 MG; Start 02/19/19 at 09:00 Aspirin (Aspirin) 81 mg DAILY GTB Last administered on 02/26/19 10:20; Admin Dose 81 MG; Start 02/19/19 at 09:00; Status Hold Atorvastatin Calcium (Lipitor) 40 mg QHS GTB Last administered on 03/07/19 21:33; Admin Dose 40 MG; Start 02/19/19 at 21:00 Folic Acid (Folic Acid) 1 mg DAILY GTB Last administered on 03/08/19 09:38; Admin Dose 1 MG; Start 02/19/19 at 09:00 Hydralazine HCl (Apresoline) 25 mg Q8 GTB Last administered on 03/08/19 14:49; Admin Dose 25 MG; Start 02/19/19 at 06:00 Linagliptin (Tradjenta) 5 mg DAILY GTB Last administered on 03/08/19 10:02; Admin Dose 5 MG; Start 02/19/19 at 09:00 Lorazepam (Ativan) 0.5 mg HS PRN GTB ANXIETY Last administered on 03/07/19 21:33; Admin Dose 0.5 MG; Start 02/19/19 at 03:30 Metoprolol Tartrate (Lopressor) 50 mg BID GTB Last administered on 03/08/19 09:38; Admin Dose 50 MG; Start 02/19/19 at 09:00 Ondansetron HCl (Zofran Tab) 4 mg Q4H PRN GTB NAUSEA AND/OR VOMITING; Start 02/19/19 at 03:30 Valproate Sodium (Depakene Liquid Cup) 250 mg Q8 GTB Last administered on 03/08/19 14:49; Admin Dose 250 MG; Start 02/19/19 at 06:00 Docusate Sodium (Colace Liquid Cup) 100 mg DAILY GTB Last administered on 03/08/19 09:37; Admin Dose 100 MG; Start 02/19/19 at 09:00 Docusate Sodium (Colace Liquid Cup) 100 mg Q12H PRN GTB CONSTIPATION; Start 02/19/19 at 04:00 Acetaminophen (Tylenol Tab) 650 mg Q6H PRN GTB .PAIN 1-3 OR TEMP Last administered on 02/19/19 11:57; Admin Dose 650 MG; Start 02/19/19 at 03:35 Mupirocin (Bactroban) 1 applic BID TOP Last administered on 03/08/19 09:40; Admin Dose 1 APPLIC; Start 02/22/19 at 14:00 Ampicillin 50 ml @ 100 mls/hr Q8 IVPB Last administered on 03/08/19 14:12; Admin Dose 100 MLS/HR; Start 02/24/19 at 14:00 Insulin Glargine (Lantus) 4 units DAILY@2000 SC Last administered on 03/07/19 20:18; Admin Dose 4 UNITS; Start 02/26/19 at 20:00 Epoetin Michael-epbx (Retacrit (Esrd)) 4,000 unit MoWeFr@1700 SC Last administered on 03/07/19 18:40; Admin Dose 4,000 UNIT; Start 02/28/19 at 17:00 Olanzapine (Zyprexa) 2.5 mg DAILY GTB Last administered on 03/08/19 09:37; Admin Dose 2.5 MG; Start 03/01/19 at 09:00 Lansoprazole (Prevacid) 30 mg BID@0600,1800 GTB Last administered on 03/08/19 05:13; Admin Dose 30 MG; Start 02/28/19 at 18:00 Caspofungin 50 mg/ Sodium Chloride 250 ml @ 250 mls/hr Q24H IVPB Last administered on 03/07/19at 20:14; Admin Dose 250 MLS/HR; Start 03/06/19 at 18:00; Stop 03/13/19 at 17:59 Ferrous Sulfate (Feosol Liquid Cup) 300 mg BID GTB Last administered on 03/08/19 09:37; Admin Dose 300 MG; Start 03/08/19 at 09:00 JOSE RAUL ANDREWS MD Mar 08, 2019 15:49
--- NOTE | 2019-03-08 16:18 | PN ---
DATE: 03/08/2019 SUBJECTIVE: The patient was seen, currently resting. The patient did receive Ativan Earlier. PHYSICAL EXAMINATION: VITAL SIGNS: Temperature 98, pulse 83, respirations 18, blood pressure is 125/63, saturation 96% on room air. GENERAL: The patient is currently resting. CARDIOVASCULAR: S1, S2, regular rate. LUNGS: Clear. ABDOMEN: Soft. G-tube in place. EXTREMITIES: No clubbing, cyanosis, or edema. Left upper IJ Perm-A-Cath in place. LABORATORY DATA: White count 9.7, hemoglobin 7.7, hematocrit 24, platelet count 308, neutrophils 75% exudate. Chemistry: Sodium 137, potassium 4.0, chloride 105, bicarbonate 27, BUN is 28, creatinine 1.26, glucose 148. Urine culture showed Dominique glabrata on 03/02/2019. MEDICATIONS: 1. Ferrous sulfate 300 b.i.d. 2. Caspofungin daily. 3. Zyprexa 2.5 daily. 4. Atorvastatin 20 mg b.i.d. 5. Epogen as directed. 6. Lantus 4 units daily. 7. Ampicillin, Bactrim, Bactroban b.i.d. 8. Lipitor 40 mg at bedtime. 9. Norvasc 5 mg b.i.d. 10. Vitamin C 500 mg daily. 11. Folic acid 1 mg daily. 12. Tradjenta 5 mg daily. 13. Metoprolol titrate 50 b.i.d. 14. Colace 100 daily. 15. Hydralazine 25 q.8 16. Depakote 250 q.8 17. Colace 100 q.12 p.r.n. 18. Tylenol p.r.n. 19. Ativan p.r.n. 20. Zofran p.r.n. ASSESSMENT AND PLAN: This is an 83-year-old Iranian female with history of advanced vascular dementia, end-stage renal disease on dialysis every Thursday, Thursday and Thursday. Diabetes mellitus, overall controlled, who presented to the hospital with fevers, was found to have UTI, bacteremia and line sepsis. 1. Respiratory. Stable. O2 p.r.n. Chest x-ray on 03/07/2019 shows moderate interstitial edema. Again, the patient is receiving dialysis for fluid removal. Clinically stable. 2. Cardiovascular: The patient with hypertension, currently controlled with above meds. 3. Anemia. Continue Epogen. Transfuse p.r.n. Currently, no evidence of active bleeding. 4. Prevacid for GI prophylaxis. 5. End-stage renal disease. Dialysis planned for tomorrow. 6. Dysphagia. Continue G-tube feeding at 30 mL an hour. 7. Anxiety. May lower Ativan as patient is currently just a little more lethargic. 8. Urinary tract infection. Continue caspofungin for treatment of Dominique glabrata UTI. White count is now normal. The patient is afebrile. 9. Awaiting placement to senior care facility. The patient needs to be closely monitored due to risk of fall. 10. Overall prognosis guarded due to multiple medical issues, dementia, bedridden state, recurrent infections. Continue supportive care. 11. The patient has enterococcus bacteremia on IV ampicillin until tomorrow. Tomorrow will be the last day. Dictated By: DYLON HULL/MADAN Conf#: [id number] DID#: [id number] CC: DYLON WALLS MD;*EndCC* MTDD
[2019-03-08] MEDS: CASPOFUNGIN 50 MG in SOD CHLORIDE 0.9% 250 ML IVPB SCH (18:22)
[2019-03-08 19:52] VITALS: BP 128/65; PULSE 80; RESP 18
[2019-03-08] MEDS: ATORVASTATIN 40 MG TAB GTB SCH (20:27)
[2019-03-08] MEDS: INSULIN GLARGINE [LANTus] (100 UNITS/ML) SYG SC SCH (20:32)
[2019-03-08] MEDS: LORAZEPAM 0.5 MG TAB GTB PRN (22:09)
[2019-03-09] VITALS (19 sets, daily range): BP systolic 128–151; BP diastolic 54–75; PULSE 77–88; RESP 16–18
[2019-03-09] MEDS: LANSOPRAZOLE 30 MG CAP GTB SCH ×2 (05:07→18:24)
[2019-03-09] MEDS: AMPICILLIN 1 GM/NS (PMX) 50 ML IVPB SCH ×3 (05:07→22:00)
[2019-03-09] MEDS: VALPROIC ACID LIQUID CUP 250 MG/5 ML CUP GTB SCH ×3 (05:07→21:17)
[2019-03-09] MEDS: DOCUSATE SODIUM 10 MG/ML (10ML CUP) GTB SCH (09:00)
[2019-03-09] MEDS: FERROUS SULFATE 60 MG/ML 5ML CUP GTB SCH ×2 (09:02→21:17)
[2019-03-09] MEDS: FOLIC ACID 1 MG TAB GTB SCH (09:02)
[2019-03-09] MEDS: METOPROLOL 50 MG TAB GTB SCH ×2 (09:02→21:19)
[2019-03-09] MEDS: ASCORBIC ACID 500 MG TAB GTB SCH (09:03)
[2019-03-09] MEDS: OLANZAPINE 2.5 MG TAB GTB SCH (09:03)
[2019-03-09] MEDS: AMLODIPINE 5 MG TAB GTB SCH ×2 (09:03→21:18)
[2019-03-09] MEDS: MUPIROCIN 2% 22 GM OINT TOP SCH (09:04)
[2019-03-09] MEDS: LINAGLIPTIN 5 MG TABLET GTB SCH (10:12)
[2019-03-09] MEDS: ACETAMINOPHEN 325 MG TAB GTB PRN (10:13)
--- NOTE | 2019-03-09 11:29 | CONS ---
Assessment/Plan Assessment/Plan Hospital Course (Demo Recall) All noted. No acute events Antimicrobials: IV ampicillin, Cancidas Indwelling: Left subclavian permacath, PEG Microbiology: Urine culture on admission grew Dominique glabrata, blood culture gr ew Enterococcus Chest x-ray on admission revealed no definite evidence of pneumonia or CHF Physical examination: This is a chronically ill-appearing wasted elderly woman who is in no distress. Head atraumatic normocephalic. Neck is supple. Chest rise symmetrical breath sounds clear, diminished bases. Heart: S1-S2. Abdomen soft bowel sounds present. Extremities without cyanosis edema. Assessment: 1. S/p sepsis, present on admission 2. Recurrent UTI 3. Bacteremia, repeat bld cx neg, s/p cath changed 4. End-stage renal disease, hemodialysis dependent 5. Anemia 6. 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 Plan: Remains stable, will give last dose of Amp today Consultation Date/Type/Reason Admit Date/Time Feb 19, 2019 at 01:01 Initial Consult Date Type of Consult id Requesting Provider: JILLIAN HOLLAND MD Date/Time of Note DATE: 03/09/19 TIME: 11:28 Exam/Review of Systems Exam Vitals Vital Signs Date Temp Pulse Resp B/P (MAP) Pulse Ox O2 O2 Flow FiO2 Time Delivery Rate 03/09/19 97.9 80 16 140/63 97 08:00 (88) 03/09/19 Room Air 01:24 Intake and Output 03/08/19 03/08/19 03/09/19 1515:00 23:00 07:00 IntakeIntake Total 300 ml 50 ml BalanceBalance 300 ml 50 ml Results Result Diagram: 03/09/19 0633 03/09/19 0633 Results 24hrs Laboratory Tests Test 03/08/19 20:31 03/09/19 06:33 03/09/19 10:11 Bedside Glucose 150 162 White Blood Count 9.4 Red Blood Count 2.91 L Hemoglobin 7.8 L Hematocrit 25.2 L Mean Corpuscular Volume 86.6 Mean Corpuscular Hemoglobin 26.8 L Mean Corpuscular Hemoglobin Concent 31.0 L Red Cell Distribution Width 16.0 H Platelet Count 325 Mean Platelet Volume 11.2 H Immature Granulocytes % 1.600 H Neutrophils % 63.5 Lymphocytes % 11.0 L Monocytes % 13.9 H Eosinophils % 9.6 H Basophils % 0.4 Nucleated Red Blood Cells % 1.1 H Immature Granulocytes # 0.150 H Neutrophils # 6.0 Lymphocytes # 1.0 Monocytes # 1.3 H Eosinophils # 0.9 H Basophils # 0.0 Nucleated Red Blood Cells # 0.1 H Sodium Level 135 Potassium Level 3.8 Chloride Level 102 Carbon Dioxide Level 26 Anion Gap 7 Blood Urea Nitrogen 42 #H Creatinine 1.81 H Est Glomerular Filtrat Rate mL/min Glucose Level 149 Calcium Level 8.4 Phosphorus Level 3.4 Magnesium Level 2.2 Medications Medication Current Medications IV Flush (NS 3 ml) 3 ml PER PROTOCOL IV ; Start 02/19/19 at 03:30 Lorazepam (Ativan) 0.5 mg Q8H PRN GTB .ANXIETY Last administered on 03/06/19 15:04; Admin Dose 0.5 MG; Start 02/19/19 at 03:30 Ondansetron HCl (Zofran Inj) 4 mg Q6H PRN IV NAUSEA/VOMITING; Start 02/19/19 at 03:30 Acetaminophen (Tylenol Tab) 325 mg Q4H PRN GTB FOR FEVER 100AND ABOVE Last administered on 02/20/19 20:13; Admin Dose 325 MG; Start 02/19/19 at 03:30 Acetaminophen (Tylenol Tab) 650 mg Q6H PRN GTB PAIN LEVEL 1-10/10 Last administered on 02/19/19 21:49; Admin Dose 650 MG; Start 02/19/19 at 03:30 Amlodipine Besylate (Norvasc) 5 mg BID GTB Last administered on 03/09/19 09:03; Admin Dose 5 MG; Start 02/19/19 at 09:00 Ascorbic Acid (Vitamin C) 500 mg DAILY GTB Last administered on 03/09/19 09:03; Admin Dose 500 MG; Start 02/19/19 at 09:00 Aspirin (Aspirin) 81 mg DAILY GTB Last administered on 02/26/19 10:20; Admin Dose 81 MG; Start 02/19/19 at 09:00; Status Hold Atorvastatin Calcium (Lipitor) 40 mg QHS GTB Last administered on 03/08/19 20:27; Admin Dose 40 MG; Start 02/19/19 at 21:00 Folic Acid (Folic Acid) 1 mg DAILY GTB Last administered on 03/09/19 09:02; Admin Dose 1 MG; Start 02/19/19 at 09:00 Hydralazine HCl (Apresoline) 25 mg Q8 GTB Last administered on 03/09/19 05:08; Admin Dose 25 MG; Start 02/19/19 at 06:00 Linagliptin (Tradjenta) 5 mg DAILY GTB Last administered on 03/09/19 10:12; Admin Dose 5 MG; Start 02/19/19 at 09:00 Lorazepam (Ativan) 0.5 mg HS PRN GTB ANXIETY Last administered on 03/08/19 22:09; Admin Dose 0.5 MG; Start 02/19/19 at 03:30 Metoprolol Tartrate (Lopressor) 50 mg BID GTB Last administered on 03/09/19 09:02; Admin Dose 50 MG; Start 02/19/19 at 09:00 Ondansetron HCl (Zofran Tab) 4 mg Q4H PRN GTB NAUSEA AND/OR VOMITING; Start 02/19/19 at 03:30 Valproate Sodium (Depakene Liquid Cup) 250 mg Q8 GTB Last administered on 03/09/19 05:07; Admin Dose 250 MG; Start 02/19/19 at 06:00 Docusate Sodium (Colace Liquid Cup) 100 mg DAILY GTB Last administered on 03/08/19 09:37; Admin Dose 100 MG; Start 02/19/19 at 09:00 Docusate Sodium (Colace Liquid Cup) 100 mg Q12H PRN GTB CONSTIPATION; Start 02/19/19 at 04:00 Acetaminophen (Tylenol Tab) 650 mg Q6H PRN GTB .PAIN 1-3 OR TEMP Last administered on 03/09/19 10:13; Admin Dose 650 MG; Start 02/19/19 at 03:35 Mupirocin (Bactroban) 1 applic BID TOP Last administered on 03/09/19 09:04; Admin Dose 1 APPLIC; Start 02/22/19 at 14:00 Ampicillin 50 ml @ 100 mls/hr Q8 IVPB Last administered on 03/09/19 05:07; Admin Dose 100 MLS/HR; Start 02/24/19 at 14:00 Insulin Glargine (Lantus) 4 units DAILY@2000 SC Last administered on 03/08/19at 20:32; Admin Dose 4 UNITS; Start 02/26/19 at 20:00 Epoetin Michael-epbx (Retacrit (Esrd)) 4,000 unit MoWeFr@1700 SC Last administered on 03/07/19 18:40; Admin Dose 4,000 UNIT; Start 02/28/19 at 17:00 Olanzapine (Zyprexa) 2.5 mg DAILY GTB Last administered on 03/09/19 09:03; Admin Dose 2.5 MG; Start 03/01/19 at 09:00 Lansoprazole (Prevacid) 30 mg BID@0600,1800 GTB Last administered on 03/09/19 05:07; Admin Dose 30 MG; Start 02/28/19 at 18:00 Caspofungin 50 mg/ Sodium Chloride 250 ml @ 250 mls/hr Q24H IVPB Last administered on 03/08/19at 18:22; Admin Dose 250 MLS/HR; Start 03/06/19 at 18:00; Stop 03/13/19 at 17:59 Ferrous Sulfate (Feosol Liquid Cup) 300 mg BID GTB Last administered on 03/09/19 09:02; Admin Dose 300 MG; Start 03/08/19 at 09:00 PHYLICIA HOLCOMB NP March 09, 2019 11:29
--- NOTE | 2019-03-09 14:13 | CONS ---
Assessment/Plan Assessment/Plan Assessment/Plan (Daily) 1. Fevers, likely secondary to urinary tract infection, now bld cx positive gram + Entercoccus s/p permcath excahnge 2. End-stage renal disease on hemodialysis. 3. Urinary tract infection.WITH Dominique 4. Hypertension. 5. Dementia. 6. Diabetes mellitus type II. 7. Diastolic heart failure. 8. Moderate protein energy malnutrition with cachexia. 9. Osteoarthritis. 10. GT status 11. Anemia of chronic disease Assessment/Plan (Daily) -c/w HD,mwf -a/b per ID, repeat cx neg so far -strict I and O -Left Chest Perm cath functioning. -c/w epoetin 3 times a week Consultation Date/Type/Reason Admit Date/Time Feb 19, 2019 at 01:01 Initial Consult Date Requesting Provider: JILLIAN HOLLAND MD Date/Time of Note DATE: 03/09/19 TIME: 14:13 24 HR Interval Summary Free Text/Dictation hd in progress Exam/Review of Systems Exam Vitals Vital Signs Date Temp Pulse Resp B/P (MAP) Pulse Ox O2 O2 Flow FiO2 Time Delivery Rate 03/09/19 80 18 140/63 97 Room Air 14:06 (88) 03/09/19 97.9 08:00 Intake and Output 03/08/19 03/08/19 03/09/19 1515:00 23:00 07:00 IntakeIntake Total 300 ml 50 ml BalanceBalance 300 ml 50 ml Results Result Diagram: 03/09/19 0633 03/09/19 0633 Results 24hrs Laboratory Tests Test 03/08/19 20:31 03/09/19 06:33 03/09/19 10:11 Bedside Glucose 150 162 White Blood Count 9.4 Red Blood Count 2.91 L Hemoglobin 7.8 L Hematocrit 25.2 L Mean Corpuscular Volume 86.6 Mean Corpuscular Hemoglobin 26.8 L Mean Corpuscular Hemoglobin Concent 31.0 L Red Cell Distribution Width 16.0 H Platelet Count 325 Mean Platelet Volume 11.2 H Immature Granulocytes % 1.600 H Neutrophils % 63.5 Lymphocytes % 11.0 L Monocytes % 13.9 H Eosinophils % 9.6 H Basophils % 0.4 Nucleated Red Blood Cells % 1.1 H Immature Granulocytes # 0.150 H Neutrophils # 6.0 Lymphocytes # 1.0 Monocytes # 1.3 H Eosinophils # 0.9 H Basophils # 0.0 Nucleated Red Blood Cells # 0.1 H Sodium Level 135 Potassium Level 3.8 Chloride Level 102 Carbon Dioxide Level 26 Anion Gap 7 Blood Urea Nitrogen 42 #H Creatinine 1.81 H Est Glomerular Filtrat Rate mL/min Glucose Level 149 Calcium Level 8.4 Phosphorus Level 3.4 Magnesium Level 2.2 Medications Medication Current Medications IV Flush (NS 3 ml) 3 ml PER PROTOCOL IV ; Start 02/19/19 at 03:30 Lorazepam (Ativan) 0.5 mg Q8H PRN GTB .ANXIETY Last administered on 03/06/19 15:04; Admin Dose 0.5 MG; Start 02/19/19 at 03:30 Ondansetron HCl (Zofran Inj) 4 mg Q6H PRN IV NAUSEA/VOMITING; Start 02/19/19 at 03:30 Acetaminophen (Tylenol Tab) 325 mg Q4H PRN GTB FOR FEVER 100AND ABOVE Last administered on 02/20/19 20:13; Admin Dose 325 MG; Start 02/19/19 at 03:30 Acetaminophen (Tylenol Tab) 650 mg Q6H PRN GTB PAIN LEVEL 1-10/10 Last administered on 02/19/19 21:49; Admin Dose 650 MG; Start 02/19/19 at 03:30 Amlodipine Besylate (Norvasc) 5 mg BID GTB Last administered on 03/09/19 09:03; Admin Dose 5 MG; Start 02/19/19 at 09:00 Ascorbic Acid (Vitamin C) 500 mg DAILY GTB Last administered on 03/09/19 09:03; Admin Dose 500 MG; Start 02/19/19 at 09:00 Aspirin (Aspirin) 81 mg DAILY GTB Last administered on 02/26/19 10:20; Admin Dose 81 MG; Start 02/19/19 at 09:00; Status Hold Atorvastatin Calcium (Lipitor) 40 mg QHS GTB Last administered on 03/08/19 20:27; Admin Dose 40 MG; Start 02/19/19 at 21:00 Folic Acid (Folic Acid) 1 mg DAILY GTB Last administered on 03/09/19 09:02; Admin Dose 1 MG; Start 02/19/19 at 09:00 Hydralazine HCl (Apresoline) 25 mg Q8 GTB Last administered on 03/09/19 05:08; Admin Dose 25 MG; Start 02/19/19 at 06:00 Linagliptin (Tradjenta) 5 mg DAILY GTB Last administered on 03/09/19 10:12; Admin Dose 5 MG; Start 02/19/19 at 09:00 Lorazepam (Ativan) 0.5 mg HS PRN GTB ANXIETY Last administered on 03/08/19 22:09; Admin Dose 0.5 MG; Start 02/19/19 at 03:30 Metoprolol Tartrate (Lopressor) 50 mg BID GTB Last administered on 03/09/19 09:02; Admin Dose 50 MG; Start 02/19/19 at 09:00 Ondansetron HCl (Zofran Tab) 4 mg Q4H PRN GTB NAUSEA AND/OR VOMITING; Start 02/19/19 at 03:30 Valproate Sodium (Depakene Liquid Cup) 250 mg Q8 GTB Last administered on 03/09/19 05:07; Admin Dose 250 MG; Start 02/19/19 at 06:00 Docusate Sodium (Colace Liquid Cup) 100 mg DAILY GTB Last administered on 03/08/19 09:37; Admin Dose 100 MG; Start 02/19/19 at 09:00 Docusate Sodium (Colace Liquid Cup) 100 mg Q12H PRN GTB CONSTIPATION; Start 02/19/19 at 04:00 Acetaminophen (Tylenol Tab) 650 mg Q6H PRN GTB .PAIN 1-3 OR TEMP Last administered on 03/09/19 10:13; Admin Dose 650 MG; Start 02/19/19 at 03:35 Mupirocin (Bactroban) 1 applic BID TOP Last administered on 03/09/19 09:04; Admin Dose 1 APPLIC; Start 02/22/19 at 14:00 Ampicillin 50 ml @ 100 mls/hr Q8 IVPB Last administered on 03/09/19 05:07; Admin Dose 100 MLS/HR; Start 02/24/19 at 14:00 Insulin Glargine (Lantus) 4 units DAILY@2000 SC Last administered on 03/08/19 20:32; Admin Dose 4 UNITS; Start 02/26/19 at 20:00 Epoetin Michael-epbx (Retacrit (Esrd)) 4,000 unit MoWeFr@1700 SC Last administered on 03/07/19at 18:40; Admin Dose 4,000 UNIT; Start 02/28/19 at 17:00 Olanzapine (Zyprexa) 2.5 mg DAILY GTB Last administered on 03/09/19 09:03; Admin Dose 2.5 MG; Start 03/01/19 at 09:00 Lansoprazole (Prevacid) 30 mg BID@0600,1800 GTB Last administered on 03/09/19at 05:07; Admin Dose 30 MG; Start 02/28/19 at 18:00 Caspofungin 50 mg/ Sodium Chloride 250 ml @ 250 mls/hr Q24H IVPB Last administered on 03/08/19at 18:22; Admin Dose 250 MLS/HR; Start 03/06/19 at 18:00; Stop 03/13/19 at 17:59 Ferrous Sulfate (Feosol Liquid Cup) 300 mg BID GTB Last administered on 03/09/19at 09:02; Admin Dose 300 MG; Start 03/08/19 at 09:00 JOSE RAUL ANDREWS MD March 09, 2019 14:13
--- NOTE | 2019-03-09 16:07 | CONS ---
Assessment/Plan Assessment/Plan Assessment/Plan (Daily) Assessment/Plan Hospital Course (Demo Recall) 83 yo female presented with severe anemia Interval hx: No acute changes. Per RN, no GI bleeding noted. hgb 7.7. Tolerating tf at 30cc/hr. 1. Severe anemia,acute on chronic -GI bleed vs chronic disease -stable -retic 2.6, ferritin 4490, neg FOB twice 2. End-stage renal disease on dialysis. 3. Urinary tract infection. -positive yeast 4. Dysphagia, status post percutaneous endoscopic gastrostomy tube placement. 5. Hypertension. 6. Behavioral disorder. PLAN: Monitor HH Hold all anti coagulants PPI BID If GI bleeding, noted positive FOB, we will consider push endoscopy Consultation Date/Type/Reason Admit Date/Time Feb 19, 2019 at 01:01 Initial Consult Date 02/23/19 Requesting Provider: JILLIAN HOLLAND MD Date/Time of Note DATE: 03/09/19 TIME: 16:06 24 HR Interval Summary Constitutional: improved, disoriented Exam/Review of Systems Exam Vitals Vital Signs Date Temp Pulse Resp B/P (MAP) Pulse Ox O2 O2 Flow FiO2 Time Delivery Rate 03/09/19 82 14:35 03/09/19 18 140/63 97 Room Air 14:06 (88) 03/09/19 97.9 08:00 Intake and Output 03/08/19 03/08/19 03/09/19 1515:00 23:00 07:00 IntakeIntake Total 300 ml 50 ml BalanceBalance 300 ml 50 ml Constitutional: alert, oriented, well developed Psych: no complaints, nl mood/affect Head: normocephalic, atraumatic Eyes: nl conjunctiva, EOMI, nl lids, nl sclera, PERRL ENMT: nl external ears & nose, nl lips & teeth, nl nasal mucosa & septum Neck: supple, non-tender Respiratory: clear to auscultation, normal air movement Cardiovascular: regular rate and rhythm, nl pulses Gastrointestinal: soft, nl liver, spleen, non-tender Musculoskeletal: nl extremities to inspection, nl gait and stance Extremities: normal pulses 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: ACID REGENERATOR II-XII intact, nl mental status, nl speech, nl strength Skin: nl turgor; No rash or lesions Lymph: nl lymph nodes Results Result Diagram: 03/09/1963203/09/19632 Results 24hrs Laboratory Tests Test 03/08/19 20:31 03/09/19 06:33 03/09/19 10:11 Bedside Glucose 150 162 White Blood Count 9.4 Red Blood Count 2.91 L Hemoglobin 7.8 L Hematocrit 25.2 L Mean Corpuscular Volume 86.6 Mean Corpuscular Hemoglobin 26.8 L Mean Corpuscular Hemoglobin Concent 31.0 L Red Cell Distribution Width 16.0 H Platelet Count 325 Mean Platelet Volume 11.2 H Immature Granulocytes % 1.600 H Neutrophils % 63.5 Lymphocytes % 11.0 L Monocytes % 13.9 H Eosinophils % 9.6 H Basophils % 0.4 Nucleated Red Blood Cells % 1.1 H Immature Granulocytes # 0.150 H Neutrophils # 6.0 Lymphocytes # 1.0 Monocytes # 1.3 H Eosinophils # 0.9 H Basophils # 0.0 Nucleated Red Blood Cells # 0.1 H Sodium Level 135 Potassium Level 3.8 Chloride Level 102 Carbon Dioxide Level 26 Anion Gap 7 Blood Urea Nitrogen 42 #H Creatinine 1.81 H Est Glomerular Filtrat Rate mL/min Glucose Level 149 Calcium Level 8.4 Phosphorus Level 3.4 Magnesium Level 2.2 Medications Medication Current Medications IV Flush (NS 3 ml) 3 ml PER PROTOCOL IV ; Start 02/19/19 at 03:30 Lorazepam (Ativan) 0.5 mg Q8H PRN GTB .ANXIETY Last administered on 03/06/19at 15:04; Admin Dose 0.5 MG; Start 02/19/19 at 03:30 Ondansetron HCl (Zofran Inj) 4 mg Q6H PRN IV NAUSEA/VOMITING; Start 02/19/19 at 03:30 Acetaminophen (Tylenol Tab) 325 mg Q4H PRN GTB FOR FEVER 100AND ABOVE Last administered on 02/20/19at 20:13; Admin Dose 325 MG; Start 02/19/19 at 03:30 Acetaminophen (Tylenol Tab) 650 mg Q6H PRN GTB PAIN LEVEL 1-10/10 Last administered on 02/19/19at 21:49; Admin Dose 650 MG; Start 02/19/19 at 03:30 Amlodipine Besylate (Norvasc) 5 mg BID GTB Last administered on 03/09/19at 09:03; Admin Dose 5 MG; Start 02/19/19 at 09:00 Ascorbic Acid (Vitamin C) 500 mg DAILY GTB Last administered on 03/09/19 09:03; Admin Dose 500 MG; Start 02/19/19 at 09:00 Aspirin (Aspirin) 81 mg DAILY GTB Last administered on 02/26/19 10:20; Admin Dose 81 MG; Start 02/19/19 at 09:00; Status Hold Atorvastatin Calcium (Lipitor) 40 mg QHS GTB Last administered on 03/08/19 20:27; Admin Dose 40 MG; Start 02/19/19 at 21:00 Folic Acid (Folic Acid) 1 mg DAILY GTB Last administered on 03/09/19 09:02; Admin Dose 1 MG; Start 02/19/19 at 09:00 Hydralazine HCl (Apresoline) 25 mg Q8 GTB Last administered on 03/09/19 05:08; Admin Dose 25 MG; Start 02/19/19 at 06:00 Linagliptin (Tradjenta) 5 mg DAILY GTB Last administered on 03/09/19 10:12; Ad min Dose 5 MG; Start 02/19/19 at 09:00 Lorazepam (Ativan) 0.5 mg HS PRN GTB ANXIETY Last administered on 03/08/19 22:09; Admin Dose 0.5 MG; Start 02/19/19 at 03:30 Metoprolol Tartrate (Lopressor) 50 mg BID GTB Last administered on 03/09/19 09:02; Admin Dose 50 MG; Start 02/19/19 at 09:00 Ondansetron HCl (Zofran Tab) 4 mg Q4H PRN GTB NAUSEA AND/OR VOMITING; Start 02/19/19 at 03:30 Valproate Sodium (Depakene Liquid Cup) 250 mg Q8 GTB Last administered on 03/09/19 05:07; Admin Dose 250 MG; Start 02/19/19 at 06:00 Docusate Sodium (Colace Liquid Cup) 100 mg DAILY GTB Last administered on 03/08 09:37; Admin Dose 100 MG; Start 02/19/19 at 09:00 Docusate Sodium (Colace Liquid Cup) 100 mg Q12H PRN GTB CONSTIPATION; Start 02/19/19 at 04:00 Acetaminophen (Tylenol Tab) 650 mg Q6H PRN GTB .PAIN 1-3 OR TEMP Last administered on 03/09/19 10:13; Admin Dose 650 MG; Start 02/19/19 at 03:35 Mupirocin (Bactroban) 1 applic BID TOP Last administered on 03/09/19 09:04; Admin Dose 1 APPLIC; Start 02/22/19 at 14:00 Ampicillin 50 ml @ 100 mls/hr Q8 IVPB Last administered on 03/09/19 05:07; Admin Dose 100 MLS/HR; Start 02/24/19 at 14:00 Insulin Glargine (Lantus) 4 units DAILY@2000 SC Last administered on 03/08/19 20:32; Admin Dose 4 UNITS; Start 02/26/19 at 20:00 Epoetin Michael-epbx (Retacrit (Esrd)) 4,000 unit MoWeFr@1700 SC Last administered on 03/07/19 18:40; Admin Dose 4,000 UNIT; Start 02/28/19 at 17:00 Olanzapine (Zyprexa) 2.5 mg DAILY GTB Last administered on 03/09/19 09:03; Ad min Dose 2.5 MG; Start 03/01/19 at 09:00 Lansoprazole (Prevacid) 30 mg BID@0600,1800 GTB Last administered on 03/09/19 05:07; Admin Dose 30 MG; Start 02/28/19 at 18:00 Caspofungin 50 mg/ Sodium Chloride 250 ml @ 250 mls/hr Q24H IVPB Last administered on 03/08/19 18:22; Admin Dose 250 MLS/HR; Start 03/06/19 at 18:00; Stop 03/13/19 at 17:59 Ferrous Sulfate (Feosol Liquid Cup) 300 mg BID GTB Last administered on 03/09/19 09:02; Admin Dose 300 MG; Start 03/08/19 at 09:00 CHRISS WELCH MD March 09, 2019 16:07
[2019-03-09] MEDS: EPOETIN ALFA-EPBX (ESRD) 4,000 UNIT/ML VIAL SC SCH (18:26)
[2019-03-09] MEDS: CASPOFUNGIN 50 MG in SOD CHLORIDE 0.9% 250 ML IVPB SCH (18:51)
[2019-03-09] MEDS: ATORVASTATIN 40 MG TAB GTB SCH (21:18)
[2019-03-09] MEDS: INSULIN GLARGINE [LANTus] (100 UNITS/ML) SYG SC SCH (21:21)
--- NOTE | 2019-03-09 23:59 | PN ---
DATE: 03/09/2019 The patient seen, appears to be confused, status post dialysis. One liter of fluid was removed. Bret e discussed with nursing staff. The patient remains with 1:1 sitter. PHYSICAL EXAMINATION: VITAL SIGNS: Temperature is 98.2, pulse 80, respirations 18, blood pressure 140/63, saturation 97%. GENERAL: The patient is in no acute distress. HEENT: Normocephalic, atraumatic. CARDIOVASCULAR: S1 and S2, regular rate. LUNGS: Clear. ABDOMEN: Soft, nontender. EXTREMITIES: No clubbing, cyanosis, or edema. The patient is pale. LABORATORY DATA: White count 9.4, hemoglobin 7.8, hematocrit 25, platelet count was 325, neutrophils 64%, lymphocytes 11%. Chemistry: Sodium 125, potassium is 3.8, chloride 102, bicarbonate 26, BUN i s 42, creatinine 1.81, glucose of 149. Blood cultures dated 03/02/2019 negative. On urine culture t hat same day, it shows Dominique glabrata. MEDICATIONS: Reviewed, they include: 1. Ferrous sulfate. 2. Caspofungin. 3. Zyprexa. 4. Prevacid. 5. Epogen. 6. Lantus. 7. Ampicillin. 8. Bactroban. 9. Lipitor. 10. Norvasc. 11. Vitamin C. 12. Folic acid. 13. Tradjenta. 14. Lopressor. 15. Colace. 16. Hydralazine. 17. Depakote. 18. Tylenol. ASSESSMENT AND PLAN: This is a very unfortunate 83-year-old very sick [place] female with history o f end-stage renal disease, vascular dementia, hypertension, diabetes mellitus who presented with feve rs, was found to have urinary tract infection, bacteremia, line sepsis, status post Perm-A-Cath excha nge who presented. 1. Respiratory. Continue O2 support as needed. The patient is breathing comfortably. 2. Cardiovascular. Vitals are stable with the above. Deep vein thrombosis prophylaxis with heparin . 3. End-stage renal disease. Dialysis every Thursday, Thursday, Thursday, status post dialysis today. Monitor electrolytes. 4. Anemia. Monitor hemoglobin and hematocrit. If further drop in hemoglobin and hematocrit, we wou ld transfuse. Stool occult blood was ordered. GI is following. Continue proton pump inhibitor. 5. Infectious disease. Continue Cancidas. White count is normal. The patient is afebrile. 6. associate manager assisting with placement. The patient unfortunately is high risk of fall, with a si tter. 7. Diabetes mellitus. Continue Lantus 4 units in sliding scale. 8. Psychiatric. Continue Zyprexa. Monitor mood. 9. Clinically stable. Overall, prognosis is poor with the patient with poor quality of life. 10. Dysphagia. Continue G-tube feeding. 11. The patient is DO NOT RESUSCITATE/DO NOT INTUBATE. We will follow. Dictated By: DYLON HULL/MADAN Conf#: [id number] DID#: [id number] CC: DYLON WALLS MD;*EndCC*
[2019-03-10] MEDS: MUPIROCIN 2% 22 GM OINT TOP SCH ×3 (00:48→21:19)
[2019-03-10 05:00] VITALS: BP 157/67; PULSE 89; RESP 18
[2019-03-10] MEDS: LANSOPRAZOLE 30 MG CAP GTB SCH ×2 (05:43→17:19)
[2019-03-10] MEDS: VALPROIC ACID LIQUID CUP 250 MG/5 ML CUP GTB SCH ×3 (05:43→22:16)
[2019-03-10] MEDS: AMPICILLIN 1 GM/NS (PMX) 50 ML IVPB SCH ×4 (05:44→22:15)
[2019-03-10 07:37] VITALS: BP 156/95; PULSE 96; RESP 20
[2019-03-10] MEDS: DOCUSATE SODIUM 10 MG/ML (10ML CUP) GTB SCH (08:54)
[2019-03-10] MEDS: AMLODIPINE 5 MG TAB GTB SCH ×2 (08:57→21:11)
[2019-03-10] MEDS: ASCORBIC ACID 500 MG TAB GTB SCH (08:57)
[2019-03-10] MEDS: METOPROLOL 50 MG TAB GTB SCH ×2 (08:57→21:11)
[2019-03-10] MEDS: OLANZAPINE 2.5 MG TAB GTB SCH (08:57)
[2019-03-10] MEDS: FERROUS SULFATE 60 MG/ML 5ML CUP GTB SCH ×2 (08:57→21:11)
[2019-03-10] MEDS: FOLIC ACID 1 MG TAB GTB SCH (08:57)
[2019-03-10] MEDS: LINAGLIPTIN 5 MG TABLET GTB SCH (08:58)
--- NOTE | 2019-03-10 12:18 | CONS ---
Assessment/Plan Assessment/Plan Assessment/Plan (Daily) Assessment/Plan Hospital Course (Demo Recall) 83 yo female presented with severe anemia Interval hx: No acute changes. Per RN, no GI bleeding noted. hgb 7.7. Tolerating tf at 30cc/hr. 1. Severe anemia,acute on chronic -GI bleed vs chronic disease -stable -retic 2.6, ferritin 4490, neg FOB twice 2. End-stage renal disease on dialysis. 3. Urinary tract infection. -positive yeast 4. Dysphagia, status post percutaneous endoscopic gastrostomy tube placement. 5. Hypertension. 6. Behavioral disorder. PLAN: Monitor HH Hold all anti coagulants PPI BID If GI bleeding, noted positive FOB, we will consider push endoscopy So for no acute bleeding or occult bleeding noted Consultation Date/Type/Reason Admit Date/Time Feb 19, 2019 at 01:01 Initial Consult Date 02/23/19 Requesting Provider: JILLIAN HOLLAND MD Date/Time of Note DATE: 03/10/19 TIME: 12:18 24 HR Interval Summary Constitutional: no complaints, improved Exam/Review of Systems Exam Vitals Vital Signs Date Temp Pulse Resp B/P (MAP) Pulse Ox O2 O2 Flow FiO2 Time Delivery Rate 03/10/19 98.0 96 20 156/95 100 Room Air 07:37 (115) Intake and Output 03/09/19 03/09/19 03/10/19 1515:00 23:00 07:00 IntakeIntake Total 810 ml OutputOutput Total 200 ml 2400 ml BalanceBalance -200 ml -1590 ml Constitutional: alert, oriented, well developed Psych: no complaints, nl mood/affect Head: normocephalic, atraumatic Eyes: nl conjunctiva, EOMI, nl lids, nl sclera, PERRL ENMT: nl external ears & nose, nl lips & teeth, nl nasal mucosa & septum Neck: supple, non-tender Respiratory: clear to auscultation, normal air movement Cardiovascular: regular rate and rhythm, nl pulses Gastrointestinal: soft, nl liver, spleen, non-tender Musculoskeletal: nl extremities to inspection, nl gait and stance Extremities: normal pulses 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: FRONT DESK ADMINISTRATOR II-XII intact, nl mental status, nl speech, nl strength Skin: nl turgor; No rash or lesions Lymph: nl lymph nodes Results Result Diagram: 03/10/19 0543 03/10/19 0543 Results 24hrs Laboratory Tests Test 03/09/19 18:10 03/09/19 21:15 03/10/19 05:43 03/10/19 08:56 Stool Occult Blood NEGATIVE Bedside Glucose 159 191 White Blood Count 12.5 #H Red Blood Count 3.00 L Hemoglobin 8.1 L Hematocrit 25.7 L Mean Corpuscular Volume 85.7 Mean Corpuscular 27.0 L Hemoglobin Mean Corpuscular 31.5 L Hemoglobin Concent Red Cell Distribution 15.9 H Width Platelet Count 357 Mean Platelet Volume 11.1 H Immature Granulocytes % 1.400 H Neutrophils % 69.8 Lymphocytes % 12.6 L Monocytes % 12.0 H Eosinophils % 4.0 Basophils % 0.2 Nucleated Red Blood 1.0 H Cells % Immature Granulocytes # 0.180 H Neutrophils # 8.7 H Lymphocytes # 1.6 Monocytes # 1.5 H Eosinophils # 0.5 Basophils # 0.0 Nucleated Red Blood 0.1 H Cells # Sodium Level 137 Potassium Level 3.9 Chloride Level 103 Carbon Dioxide Level 29 Anion Gap 5 Blood Urea Nitrogen 22 #H Creatinine 1.26 H Est Glomerular Filtrat Rate mL/min Glucose Level 157 Calcium Level 8.8 Phosphorus Level 2.5 Magnesium Level 2.2 Medications Medication Current Medications IV Flush (NS 3 ml) 3 ml PER PROTOCOL IV ; Start 02/19/19 at 03:30 Lorazepam (Ativan) 0.5 mg Q8H PRN GTB .ANXIETY Last administered on 03/06/19at 15:04; Admin Dose 0.5 MG; Start 02/19/19 at 03:30 Ondansetron HCl (Zofran Inj) 4 mg Q6H PRN IV NAUSEA/VOMITING; Start 02/19/19 at 03:30 Acetaminophen (Tylenol Tab) 325 mg Q4H PRN GTB FOR FEVER 100AND ABOVE Last administered on 02/20/19at 20:13; Admin Dose 325 MG; Start 02/19/19 at 03:30 Acetaminophen (Tylenol Tab) 650 mg Q6H PRN GTB PAIN LEVEL 1-10/10 Last administered on 02/19/19at 21:49; Admin Dose 650 MG; Start 02/19/19 at 03:30 Amlodipine Besylate (Norvasc) 5 mg BID GTB Last administered on 03/10/19 08:57; Admin Dose 5 MG; Start 02/19/19 at 09:00 Ascorbic Acid (Vitamin C) 500 mg DAILY GTB Last administered on 03/10/19 08:57; Admin Dose 500 MG; Start 02/19/19 at 09:00 Aspirin (Aspirin) 81 mg DAILY GTB Last administered on 02/26/19 10:20; Admin Dose 81 MG; Start 02/19/19 at 09:00; Status Hold Atorvastatin Calcium (Lipitor) 40 mg QHS GTB Last administered on 03/09/19 21:18; Admin Dose 40 MG; Start 02/19/19 at 21:00 Folic Acid (Folic Acid) 1 mg DAILY GTB Last administered on 03/10/19 08:57; Admin Dose 1 MG; Start 02/19/19 at 09:00 Hydralazine HCl (Apresoline) 25 mg Q8 GTB Last administered on 03/10/19 05:43; Admin Dose 25 MG; Start 02/19/19 at 06:00 Linagliptin (Tradjenta) 5 mg DAILY GTB Last administered on 03/10/19 08:58; Admin Dose 5 MG; Start 02/19/19 at 09:00 Lorazepam (Ativan) 0.5 mg HS PRN GTB ANXIETY Last administered on 03/08/19 22:09; Admin Dose 0.5 MG; Start 02/19/19 at 03:30 Metoprolol Tartrate (Lopressor) 50 mg BID GTB Last administered on 03/10/19 08:57; Admin Dose 50 MG; Start 02/19/19 at 09:00 Ondansetron HCl (Zofran Tab) 4 mg Q4H PRN GTB NAUSEA AND/OR VOMITING; Start 02/19/19 at 03:30 Valproate Sodium (Depakene Liquid Cup) 250 mg Q8 GTB Last administered on 03/10/19 05:43; Admin Dose 250 MG; Start 02/19/19 at 06:00 Docusate Sodium (Colace Liquid Cup) 100 mg DAILY GTB Last administered on 03/08/19 09:37; Admin Dose 100 MG; Start 02/19/19 at 09:00 Docusate Sodium (Colace Liquid Cup) 100 mg Q12H PRN GTB CONSTIPATION; Start 02/19/19 at 04:00 Acetaminophen (Tylenol Tab) 650 mg Q6H PRN GTB .PAIN 1-3 OR TEMP Last administered on 03/09/19 10:13; Admin Dose 650 MG; Start 02/19/19 at 03:35 Mupirocin (Bactroban) 1 applic BID TOP Last administered on 03/10/19 08:58; Adm in Dose 1 APPLIC; Start 02/22/19 at 14:00 Ampicillin 50 ml @ 100 mls/hr Q8 IVPB Last administered on 03/10/19 06:42; Admin Dose 100 MLS/HR; Start 02/24/19 at 14:00 Insulin Glargine (Lantus) 4 units DAILY@2000 SC Last administered on 03/09/19 21:21; Admin Dose 4 UNITS; Start 02/26/19 at 20:00 Epoetin Michael-epbx (Retacrit (Esrd)) 4,000 unit MoWeFr@1700 SC Last administered on 03/09/19 18:26; Admin Dose 4,000 UNIT; Start 02/28/19 at 17:00 Olanzapine (Zyprexa) 2.5 mg DAILY GTB Last administered on 03/10/19 08:57; Admin Dose 2.5 MG; Start 03/01/19 at 09:00 Lansoprazole (Prevacid) 30 mg BID@0600,1800 GTB Last administered on 03/10/19 05:43; Admin Dose 30 MG; Start 02/28/19 at 18:00 Caspofungin 50 mg/ Sodium Chloride 250 ml @ 250 mls/hr Q24H IVPB Last administered on 03/09/19 18:51; Admin Dose 250 MLS/HR; Start 03/06/19 at 18:00; Stop 03/13/19 at 17:59 Ferrous Sulfate (Feosol Liquid Cup) 300 mg BID GTB Last administered on 03/10/19 08:57; Admin Dose 300 MG; Start 03/08/19 at 09:00 CHRISS WELCH MD March 10, 2019 12:18
--- NOTE | 2019-03-10 13:59 | CONS ---
Assessment/Plan Assessment/Plan Hospital Course (Demo Recall) No events, looks comfortable nno fevers Antimicrobials: IV ampicillin, Cancidas Indwelling: Left subclavian permacath, PEG Microbiology: Urine culture on admission grew Dominique glabrata, blood culture grew Enterococcus Chest x-ray on admission revealed no definite evidence of pneumonia or CHF Physical examination: This is a chronically ill-appearing wasted elderly woman who is in no distress. Head atraumatic normocephalic. Neck is supple. Chest rise symmetrical breath sounds clear, diminished bases. Heart: S1-S2. Abdomen soft bowel sounds present. Extremities without cyanosis edema. Assessment: 1. S/p sepsis, present on admission 2. Recurrent UTI 3. Bacteremia, repeat bld cx neg, s/p cath changed 4. End-stage renal disease, hemodialysis dependent 5. Anemia 6. 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 Plan: Remains stable, dc abx in am Consultation Date/Type/Reason Admit Date/Time Feb 19, 2019 at 01:01 Initial Consult Date Type of Consult id Requesting Provider: JILLIAN HOLLAND MD Date/Time of Note DATE: 03/10/19 TIME: 13:58 Exam/Review of Systems Exam Vitals Vital Signs Date Temp Pulse Resp B/P (MAP) Pulse Ox O2 O2 Flow FiO2 Time Delivery Rate 03/10/19 98.0 96 20 156/95 100 Room Air 07:37 (115) Intake and Output 03/09/19 03/09/19 03/10/19 1515:00 23:00 07:00 IntakeIntake Total 810 ml OutputOutput Total 200 ml 2400 ml BalanceBalance -200 ml -1590 ml Results Result Diagram: 03/10/19 0543 03/10/19 0543 Results 24hrs Laboratory Tests Test 03/09/19 18:10 03/09/19 21:15 03/10/19 05:43 03/10/19 08:56 Stool Occult Blood NEGATIVE Bedside Glucose 159 191 White Blood Count 12.5 #H Red Blood Count 3.00 L Hemoglobin 8.1 L Hematocrit 25.7 L Mean Corpuscular Volume 85.7 Mean Corpuscular 27.0 L Hemoglobin Mean Corpuscular 31.5 L Hemoglobin Concent Red Cell Distribution 15.9 H Width Platelet Count 357 Mean Platelet Volume 11.1 H Immature Granulocytes % 1.400 H Neutrophils % 69.8 Lymphocytes % 12.6 L Monocytes % 12.0 H Eosinophils % 4.0 Basophils % 0.2 Nucleated Red Blood 1.0 H Cells % Immature Granulocytes # 0.180 H Neutrophils # 8.7 H Lymphocytes # 1.6 Monocytes # 1.5 H Eosinophils # 0.5 Basophils # 0.0 Nucleated Red Blood 0.1 H Cells # Sodium Level 137 Potassium Level 3.9 Chloride Level 103 Carbon Dioxide Level 29 Anion Gap 5 Blood Urea Nitrogen 22 #H Creatinine 1.26 H Est Glomerular Filtrat Rate mL/min Glucose Level 157 Calcium Level 8.8 Phosphorus Level 2.5 Magnesium Level 2.2 Medications Medication Current Medications IV Flush (NS 3 ml) 3 ml PER PROTOCOL IV ; Start 02/19/19 at 03:30 Lorazepam (Ativan) 0.5 mg Q8H PRN GTB .ANXIETY Last administered on 03/06/19 15:04; Admin Dose 0.5 MG; Start 02/19/19 at 03:30 Ondansetron HCl (Zofran Inj) 4 mg Q6H PRN IV NAUSEA/VOMITING; Start 02/19/19 at 03:30 Acetaminophen (Tylenol Tab) 325 mg Q4H PRN GTB FOR FEVER 100AND ABOVE Last administered on 02/20/19 20:13; Admin Dose 325 MG; Start 02/19/19 at 03:30 Acetaminophen (Tylenol Tab) 650 mg Q6H PRN GTB PAIN LEVEL 1-10/10 Last administered on 02/19/19 21:49; Admin Dose 650 MG; Start 02/19/19 at 03:30 Amlodipine Besylate (Norvasc) 5 mg BID GTB Last administered on 03/10/19 08:57; Admin Dose 5 MG; Start 02/19/19 at 09:00 Ascorbic Acid (Vitamin C) 500 mg DAILY GTB Last administered on 03/10/19 08:57; Admin Dose 500 MG; Start 02/19/19 at 09:00 Aspirin (Aspirin) 81 mg DAILY GTB Last administered on 02/26/19 10:20; Admin Dose 81 MG; Start 02/19/19 at 09:00; Status Hold Atorvastatin Calcium (Lipitor) 40 mg QHS GTB Last administered on 03/09/19 21:18; Admin Dose 40 MG; Start 02/19/19 at 21:00 Folic Acid (Folic Acid) 1 mg DAILY GTB Last administered on 03/10/19 08:57; Admin Dose 1 MG; Start 02/19/19 at 09:00 Hydralazine HCl (Apresoline) 25 mg Q8 GTB Last administered on 03/10/19 05:43; Admin Dose 25 MG; Start 02/19/19 at 06:00 Linagliptin (Tradjenta) 5 mg DAILY GTB Last administered on 03/10/19 08:58; Admin Dose 5 MG; Start 02/19/19 at 09:00 Lorazepam (Ativan) 0.5 mg HS PRN GTB ANXIETY Last administered on 03/08/19 22:09; Admin Dose 0.5 MG; Start 02/19/19 at 03:30 Metoprolol Tartrate (Lopressor) 50 mg BID GTB Last administered on 03/10/19 08:57; Admin Dose 50 MG; Start 02/19/19 at 09:00 Ondansetron HCl (Zofran Tab) 4 mg Q4H PRN GTB NAUSEA AND/OR VOMITING; Start 02/19/19 at 03:30 Valproate Sodium (Depakene Liquid Cup) 250 mg Q8 GTB Last administered on 03/10/19 05:43; Admin Dose 250 MG; Start 02/19/19 at 06:00 Docusate Sodium (Colace Liquid Cup) 100 mg DAILY GTB Last administered on 03/08/19 09:37; Admin Dose 100 MG; Start 02/19/19 at 09:00 Docusate Sodium (Colace Liquid Cup) 100 mg Q12H PRN GTB CONSTIPATION; Start 02/19/19 at 04:00 Acetaminophen (Tylenol Tab) 650 mg Q6H PRN GTB .PAIN 1-3 OR TEMP Last adminis tered on 03/09/19 10:13; Admin Dose 650 MG; Start 02/19/19 at 03:35 Mupirocin (Bactroban) 1 applic BID TOP Last administered on 03/10/19 08:58; Admin Dose 1 APPLIC; Start 02/22/19 at 14:00 Ampicillin 50 ml @ 100 mls/hr Q8 IVPB Last administered on 03/10/19 06:42; Admin Dose 100 MLS/HR; Start 02/24/19 at 14:00 Insulin Glargine (Lantus) 4 units DAILY@2000 SC Last administered on 03/09/19 21:21; Admin Dose 4 UNITS; Start 02/26/19 at 20:00 Epoetin Michael-epbx (Retacrit (Esrd)) 4,000 unit MoWeFr@1700 SC Last administered on 03/09/19 18:26; Admin Dose 4,000 UNIT; Start 02/28/19 at 17:00 Olanzapine (Zyprexa) 2.5 mg DAILY GTB Last administered on 03/10/19 08:57; Admin Dose 2.5 MG; Start 03/01/19 at 09:00 Lansoprazole (Prevacid) 30 mg BID@0600,1800 GTB Last administered on 03/10/19at 05:43; Admin Dose 30 MG; Start 02/28/19 at 18:00 Caspofungin 50 mg/ Sodium Chloride 250 ml @ 250 mls/hr Q24H IVPB Last administered on 03/09/19at 18:51; Admin Dose 250 MLS/HR; Start 03/06/19 at 18:00; Stop 03/13/19 at 17:59 Ferrous Sulfate (Feosol Liquid Cup) 300 mg BID GTB Last administered on 03/10/19 08:57; Admin Dose 300 MG; Start 03/08/19 at 09:00 Heparin Sodium (Porcine) (Heparin (5000 Units/1ml)) 5,000 unit BID SC ; Start 03/10/19 at 21:00 PHYLICIA HOLCOMB NP March 10, 2019 13:59
[2019-03-10 14:00] VITALS: BP 148/71; PULSE 86; RESP 20
--- NOTE | 2019-03-10 16:28 | CONS ---
Assessment/Plan Assessment/Plan Assessment/Plan (Daily) 1. Fevers, likely secondary to kaylah urinary tract infection, now bld cx positive gram + Entercoccus sp permacath exchange 2. End-stage renal disease on hemodialysis. 3. Urinary tract infection. 4. Hypertension. 5. Dementia. 6. Diabetes mellitus type II. 7. Diastolic heart failure. 8. Moderate protein energy malnutrition with cachexia. 9. Osteoarthritis. 10. GT status Assessment/Plan (Daily) - HD MWF , HD tmw -Repeat blood cultures have been negative so far -IV antibiotics per ID - renally dose all meds Consultation Date/Type/Reason Admit Date/Time Feb 19, 2019 at 01:01 Initial Consult Date Requesting Provider: JILLIAN HOLLAND MD Date/Time of Note DATE: 03/10/19 TIME: 16:28 24 HR Interval Summary Free Text/Dictation No acute events Exam/Review of Systems Exam Vitals Vital Signs Date Temp Pulse Resp B/P (MAP) Pulse Ox O2 O2 Flow FiO2 Time Delivery Rate 03/10/19 97.7 86 20 148/71 94 Room Air 14:00 (96) Intake and Output 03/09/19 03/09/19 03/10/19 1414:59 22:59 06:59 IntakeIntake Total 810 ml OutputOutput Total 200 ml 2400 ml BalanceBalance -200 ml -1590 ml Exam permacath confused Results Result Diagram: 03/10/19 0543 03/10/19 0543 Results 24hrs Laboratory Tests Test 03/09/19 18:10 03/09/19 21:15 03/10/19 05:43 03/10/19 08:56 Stool Occult Blood NEGATIVE Bedside Glucose 159 191 White Blood Count 12.5 #H Red Blood Count 3.00 L Hemoglobin 8.1 L Hematocrit 25.7 L Mean Corpuscular Volume 85.7 Mean Corpuscular 27.0 L Hemoglobin Mean Corpuscular 31.5 L Hemoglobin Concent Red Cell Distribution 15.9 H Width Platelet Count 357 Mean Platelet Volume 11.1 H Immature Granulocytes % 1.400 H Neutrophils % 69.8 Lymphocytes % 12.6 L Monocytes % 12.0 H Eosinophils % 4.0 Basophils % 0.2 Nucleated Red Blood 1.0 H Cells % Immature Granulocytes # 0.180 H Neutrophils # 8.7 H Lymphocytes # 1.6 Monocytes # 1.5 H Eosinophils # 0.5 Basophils # 0.0 Nucleated Red Blood 0.1 H Cells # Sodium Level 137 Potassium Level 3.9 Chloride Level 103 Carbon Dioxide Level 29 Anion Gap 5 Blood Urea Nitrogen 22 #H Creatinine 1.26 H Est Glomerular Filtrat Rate mL/min Glucose Level 157 Calcium Level 8.8 Phosphorus Level 2.5 Magnesium Level 2.2 Medications Medication Current Medications IV Flush (NS 3 ml) 3 ml PER PROTOCOL IV ; Start 02/19/19 at 03:30 Lorazepam (Ativan) 0.5 mg Q8H PRN GTB .ANXIETY Last administered on 03/06/19 15:04; Admin Dose 0.5 MG; Start 02/19/19 at 03:30 Ondansetron HCl (Zofran Inj) 4 mg Q6H PRN IV NAUSEA/VOMITING; Start 02/19/19 at 03:30 Acetaminophen (Tylenol Tab) 325 mg Q4H PRN GTB FOR FEVER 100AND ABOVE Last administered on 02/20/19 20:13; Admin Dose 325 MG; Start 02/19/19 at 03:30 Acetaminophen (Tylenol Tab) 650 mg Q6H PRN GTB PAIN LEVEL 1-10/10 Last administered on 02/19/19 21:49; Admin Dose 650 MG; Start 02/19/19 at 03:30 Amlodipine Besylate (Norvasc) 5 mg BID GTB Last administered on 03/10/19 08:57; Admin Dose 5 MG; Start 02/19/19 at 09:00 Ascorbic Acid (Vitamin C) 500 mg DAILY GTB Last administered on 03/10/19 08:57; Admin Dose 500 MG; Start 02/19/19 at 09:00 Aspirin (Aspirin) 81 mg DAILY GTB Last administered on 02/26/19 10:20; Admin Dose 81 MG; Start 02/19/19 at 09:00; Status Hold Atorvastatin Calcium (Lipitor) 40 mg QHS GTB Last administered on 03/09/19 21:18; Admin Dose 40 MG; Start 02/19/19 at 21:00 Folic Acid (Folic Acid) 1 mg DAILY GTB Last administered on 03/10/19 08:57; Admin Dose 1 MG; Start 02/19/19 at 09:00 Hydralazine HCl (Apresoline) 25 mg Q8 GTB Last administered on 03/10/19 14:09; Admin Dose 25 MG; Start 02/19/19 at 06:00 Linagliptin (Tradjenta) 5 mg DAILY GTB Last administered on 03/10/19 08:58; Admin Dose 5 MG; Start 02/19/19 at 09:00 Lorazepam (Ativan) 0.5 mg HS PRN GTB ANXIETY Last administered on 03/08/19 22:09; Admin Dose 0.5 MG; Start 02/19/19 at 03:30 Metoprolol Tartrate (Lopressor) 50 mg BID GTB Last administered on 03/10/19 08:57; Admin Dose 50 MG; Start 02/19/19 at 09:00 Ondansetron HCl (Zofran Tab) 4 mg Q4H PRN GTB NAUSEA AND/OR VOMITING; Start 02/19/19 at 03:30 Valproate Sodium (Depakene Liquid Cup) 250 mg Q8 GTB Last administered on 03/10/19 14:09; Admin Dose 250 MG; Start 02/19/19 at 06:00 Docusate Sodium (Colace Liquid Cup) 100 mg DAILY GTB Last administered on 03/08/19 09:37; Admin Dose 100 MG; Start 02/19/19 at 09:00 Docusate Sodium (Colace Liquid Cup) 100 mg Q12H PRN GTB CONSTIPATION; Start 02/19/19 at 04:00 Acetaminophen (Tylenol Tab) 650 mg Q6H PRN GTB .PAIN 1-3 OR TEMP Last administered on 03/09/19 10:13; Admin Dose 650 MG; Start 02/19/19 at 03:35 Mupirocin (Bactroban) 1 applic BID TOP Last administered on 03/10/19 08:58; Admin Dose 1 APPLIC; Start 02/22/19 at 14:00 Ampicillin 50 ml @ 100 mls/hr Q8 IVPB Last administered on 03/10/19 14:09; Admin Dose 100 MLS/HR; Start 02/24/19 at 14:00; Stop 03/11/19 at 06:00 Insulin Glargine (Lantus) 4 units DAILY@2000 SC Last administered on 03/09/19 21:21; Admin Dose 4 UNITS; Start 02/26/19 at 20:00 Epoetin Michael-epbx (Retacrit (Esrd)) 4,000 unit MoWeFr@1700 SC Last administered on 03/09/19 18:26; Admin Dose 4,000 UNIT; Start 02/28/19 at 17:00 Olanzapine (Zyprexa) 2.5 mg DAILY GTB Last administered on 03/10/19 08:57; Admin Dose 2.5 MG; Start 03/01/19 at 09:00 Lansoprazole (Prevacid) 30 mg BID@0600,1800 GTB Last administered on 03/10/19 05:43; Admin Dose 30 MG; Start 02/28/19 at 18:00 Caspofungin 50 mg/ Sodium Chloride 250 ml @ 250 mls/hr Q24H IVPB Last administered on 03/09/19 18:51; Admin Dose 250 MLS/HR; Start 03/06/19 at 18:00; Stop 03/11/19 at 06:00 Ferrous Sulfate (Feosol Liquid Cup) 300 mg BID GTB Last administered on 03/10/19 08:57; Admin Dose 300 MG; Start 03/08/19 at 09:00 Heparin Sodium (Porcine) (Heparin (5000 Units/1ml)) 5,000 unit BID SC ; Start 03/10/19 at 21:00 JOSE RAUL ANDREWS MD March 10, 2019 16:28
[2019-03-10] MEDS: CASPOFUNGIN 50 MG in SOD CHLORIDE 0.9% 250 ML IVPB SCH (17:20)
[2019-03-10 20:00] VITALS: BP 141/65; PULSE 84; RESP 18
[2019-03-10] MEDS: ATORVASTATIN 40 MG TAB GTB SCH (21:10)
[2019-03-10] MEDS: LORAZEPAM 0.5 MG TAB GTB PRN (21:11)
[2019-03-10] MEDS: HEPARIN 5,000 UNIT/1 ML VIAL SC SCH (21:13)
[2019-03-10] MEDS: INSULIN GLARGINE [LANTus] (100 UNITS/ML) SYG SC SCH (21:14)
[2019-03-11] VITALS (18 sets, daily range): BP systolic 121–153; BP diastolic 51–84; PULSE 78–99; RESP 17
[2019-03-11] MEDS: LANSOPRAZOLE 30 MG CAP GTB SCH ×2 (05:36→18:27)
[2019-03-11] MEDS: AMPICILLIN 1 GM/NS (PMX) 50 ML IVPB SCH (05:36)
[2019-03-11] MEDS: VALPROIC ACID LIQUID CUP 250 MG/5 ML CUP GTB SCH ×3 (05:36→18:29)
--- NOTE | 2019-03-11 06:53 | PN ---
DATE: 03/10/2019 SUBJECTIVE: The patient is seen, alert, slightly tachypneic, but saturation is 100% on room air. OBJECTIVE: VITAL SIGNS: Temperature 98, pulse 96, respirations 20, blood pressure 156/95, saturation 100% on ro om air. GENERAL: The patient is pale. CARDIOVASCULAR: S1 and S2. LUNGS: Clear, but the patient is definitely more tachypneic. LABORATORY DATA: Today shows a white count of 12.5, hemoglobin 8.1, hematocrit 26, platelet count 35 7 with neutrophils 70%, lymphocytes 13%. Chemistry: Sodium 137, potassium 3.9, chloride 103, bicarb jb 29, BUN is 22, creatinine 1.06 and glucose 157. Blood cultures negative. Urine culture shows Dominique glabrata. MEDICATIONS: 1. Ferrous sulfate 300 b.i.d. 2. Caspofungin daily IV. 3. Zyprexa 2.5 daily. 4. ____ mg b.i.d. 5. Epogen as directed 4000 Thursday, Thursday and Thursday. 6. Lantus 4 units daily. 7. Ampicillin as directed. 8. ____ as directed. 9. Lipitor 40 at bedtime. 10. Norvasc ____ b.i.d. 11. Vitamin C as directed. 12. Folic acid as directed. 13. Tradjenta. 14. Lopressor. 15. Colace. 16. Hydralazine. 17. Depakote. 18. Tylenol p.r.n. Meds were all reviewed The chest x-ray dated March 07 does show moderate interstitial edema with small left pleural effusi on. ASSESSMENT AND PLAN: This is a very unfortunate 83-year-old very sick [place] female with history o f end-stage renal disease, vascular dementia, hypertension, diabetes mellitus, who presents with feve rs, was found to have UTI bacteremia, line sepsis, status post Perm-A-Cath exchange, who presented wi th the above. 1. Respiratory. Continue O2 support. Noted increased tachypnea. We will continue to monitor. Alejandra lysis for fluid removal. 2. Cardiovascular. Vitals are stable. 3. Make sure the patient is on heparin twice a day. 4. End-stage renal disease. Continue dialysis every Thursday, Thursday, and Thursday. Next dialysis i s tomorrow. 5. Anemia, stable. No evidence of active bleeding. Stool occult blood were all negative. Transfus e p.r.n. Continue Epogen 3 times a week. 6. Infectious disease with Dominique glabrata, UTI on Cancidas. White count is slightly higher today. We will follow, but the patient is afebrile. 7. Diabetes mellitus, controlled with the above low dose Lantus. 8. Psychiatric disorder. Continue Zyprexa. Monitor mood, Ativan p.r.n. 9. Overall stable currently, but overall prognosis is poor. The patient is DNR/DNI. 10. Dysphagia. Continue G-tube feeding with aspiration precautions and head elevation. Again, we w ill follow. Check labs periodically. DISPOSITION: Pending. credit collections manager is assisting. Dictated By: DYLON HULL/MADAN Conf#: [id number] DID#: [id number] CC: JOSE RAUL ANDREWS;*End*
[2019-03-11] MEDS: HEPARIN 5,000 UNIT/1 ML VIAL SC SCH ×2 (08:54→20:31)
[2019-03-11] MEDS: MUPIROCIN 2% 22 GM OINT TOP SCH ×2 (08:55→20:35)
[2019-03-11] MEDS: AMLODIPINE 5 MG TAB GTB SCH ×2 (09:00→18:28)
[2019-03-11] MEDS: METOPROLOL 50 MG TAB GTB SCH ×2 (09:00→18:28)
[2019-03-11] MEDS: ASCORBIC ACID 500 MG TAB GTB SCH ×2 (09:00→18:29)
[2019-03-11] MEDS: OLANZAPINE 2.5 MG TAB GTB SCH ×2 (09:00→18:29)
[2019-03-11] MEDS: LINAGLIPTIN 5 MG TABLET GTB SCH ×2 (09:00→18:29)
[2019-03-11] MEDS: DOCUSATE SODIUM 10 MG/ML (10ML CUP) GTB SCH ×2 (09:00→18:29)
[2019-03-11] MEDS: FOLIC ACID 1 MG TAB GTB SCH ×2 (09:00→18:29)
[2019-03-11] MEDS: FERROUS SULFATE 60 MG/ML 5ML CUP GTB SCH ×2 (09:00→18:27)
[2019-03-11] MEDS: ACETAMINOPHEN 325 MG TAB GTB PRN (12:12)
--- NOTE | 2019-03-11 13:11 | CONS ---
Assessment/Plan Assessment/Plan Hospital Course (Demo Recall) No events, looks comfortable afebrile Antimicrobials: completed s/p IV ampicillin, Cancidas Indwelling: Left subclavian permacath, PEG Microbiology: Urine culture on admission grew Dominique glabrata, blood culture grew Enterococcus Chest x-ray on admission revealed no definite evidence of pneumonia or CHF Physical examination: This is a chronically ill-appearing wasted elderly woman who is in no distress. Head atraumatic normocephalic. Neck is supple. Chest rise symmetrical breath sounds clear, diminished bases. Heart: S1-S2. Abdomen soft bowel sounds present. Extremities without cyanosis edema. Assessment: 1. S/p sepsis, present on admission 2. Status post recurrent UTI 3. Bacteremia, repeat bld cx neg, s/p cath changed 4. End-stage renal disease, hemodialysis dependent 5. Anemia 6. 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 Plan: Remains stable, completed antibiotics, will monitor Consultation Date/Type/Reason Admit Date/Time Feb 19, 2019 at 01:01 Initial Consult Date Type of Consult id Requesting Provider: JILLIAN HOLLAND MD Date/Time of Note DATE: 03/11/19 TIME: 13:10 Exam/Review of Systems Exam Vitals Vital Signs Date Temp Pulse Resp B/P (MAP) Pulse Ox O2 O2 Flow FiO2 Time Delivery Rate 03/11/19 97.8 84 17 130/63 97 07:29 (85) 03/10/19 Room Air 14:00 Intake and Output 03/10/19 03/10/19 03/11/19 1515:00 23:00 07:00 IntakeIntake Total 350 ml 550 ml BalanceBalance 350 ml 550 ml Results Result Diagram: 03/11/19 0543 03/11/19 0543 Results 24hrs Laboratory Tests Test 03/10/19 21:12 03/11/19 05:43 03/11/19 08:52 03/11/19 12:59 Bedside Glucose 164 132 128 White Blood Count 10.4 Red Blood Count 2.91 L Hemoglobin 7.9 L Hematocrit 25.4 L Mean Corpuscular Volume 87.3 Mean Corpuscular 27.1 L Hemoglobin Mean Corpuscular 31.1 L Hemoglobin Concent Red Cell Distribution 15.9 H Width Platelet Count 299 Mean Platelet Volume 11.6 H Immature Granulocytes % 2.800 H Neutrophils % 65.9 Lymphocytes % 11.9 L Monocytes % 12.4 H Eosinophils % 6.1 Basophils % 0.9 Nucleated Red Blood 1.3 H Cells % Immature Granulocytes # 0.290 H Neutrophils # 6.9 Lymphocytes # 1.2 Monocytes # 1.3 H Eosinophils # 0.6 H Basophils # 0.1 Nucleated Red Blood 0.1 H Cells # Sodium Level 134 L Potassium Level 4.1 Chloride Level 102 Carbon Dioxide Level 24 Anion Gap 8 Blood Urea Nitrogen 38 #H Creatinine 1.79 H Est Glomerular Filtrat Rate mL/min Glucose Level 137 Calcium Level 8.5 Phosphorus Level 3.2 Magnesium Level 2.4 Medications Medication Current Medications IV Flush (NS 3 ml) 3 ml PER PROTOCOL IV ; Start 02/19/19 at 03:30 Lorazepam (Ativan) 0.5 mg Q8H PRN GTB .ANXIETY Last administered on 03/06/19 15:04; Admin Dose 0.5 MG; Start 02/19/19 at 03:30 Ondansetron HCl (Zofran Inj) 4 mg Q6H PRN IV NAUSEA/VOMITING; Start 02/19/19 at 03:30 Acetaminophen (Tylenol Tab) 325 mg Q4H PRN GTB FOR FEVER 100AND ABOVE Last administered on 02/20/19 20:13; Admin Dose 325 MG; Start 02/19/19 at 03:30 Acetaminophen (Tylenol Tab) 650 mg Q6H PRN GTB PAIN LEVEL 1-10/10 Last administ ered on 03/11/19 12:12; Admin Dose 650 MG; Start 02/19/19 at 03:30 Amlodipine Besylate (Norvasc) 5 mg BID GTB Last administered on 03/10/19 21:11; Admin Dose 5 MG; Start 02/19/19 at 09:00 Ascorbic Acid (Vitamin C) 500 mg DAILY GTB Last administered on 03/10/19 08:57; Admin Dose 500 MG; Start 02/19/19 at 09:00 Aspirin (Aspirin) 81 mg DAILY GTB Last administered on 02/26/19 10:20; Admin Dose 81 MG; Start 02/19/19 at 09:00; Status Hold Atorvastatin Calcium (Lipitor) 40 mg QHS GTB Last administered on 03/10/19 21:10; Admin Dose 40 MG; Start 02/19/19 at 21:00 Folic Acid (Folic Acid) 1 mg DAILY GTB Last administered on 03/10/19 08:57; Admin Dose 1 MG; Start 02/19/19 at 09:00 Hydralazine HCl (Apresoline) 25 mg Q8 GTB Last administered on 03/11/19 05:36; Admin Dose 25 MG; Start 02/19/19 at 06:00 Linagliptin (Tradjenta) 5 mg DAILY GTB Last administered on 03/10/19 08:58; Admin Dose 5 MG; Start 02/19/19 at 09:00 Lorazepam (Ativan) 0.5 mg HS PRN GTB ANXIETY Last administered on 03/10/19 21:11; Admin Dose 0.5 MG; Start 02/19/19 at 03:30 Metoprolol Tartrate (Lopressor) 50 mg BID GTB Last administered on 03/10/19 21:11; Admin Dose 50 MG; Start 02/19/19 at 09:00 Ondansetron HCl (Zofran Tab) 4 mg Q4H PRN GTB NAUSEA AND/OR VOMITING; Start 02/19/19 at 03:30 Valproate Sodium (Depakene Liquid Cup) 250 mg Q8 GTB Last administered on 03/11/19 05:36; Admin Dose 250 MG; Start 02/19/19 at 06:00 Docusate Sodium (Colace Liquid Cup) 100 mg DAILY GTB Last administered on 03/08/19 09:37; Admin Dose 100 MG; Start 02/19/19 at 09:00 Docusate Sodium (Colace Liquid Cup) 100 mg Q12H PRN GTB CONSTIPATION; Start 02/19/19 at 04:00 Acetaminophen (Tylenol Tab) 650 mg Q6H PRN GTB .PAIN 1-3 OR TEMP Last administered on 03/09/19 10:13; Admin Dose 650 MG; Start 02/19/19 at 03:35 Mupirocin (Bactroban) 1 applic BID TOP Last administered on 03/11/19 08:55; Admin Dose 1 APPLIC; Start 02/22/19 at 14:00 Insulin Glargine (Lantus) 4 units DAILY@2000 SC Last administered on 03/10/19 21:14; Admin Dose 4 UNITS; Start 02/26/19 at 20:00 Epoetin Michael-epbx (Retacrit (Esrd)) 4,000 unit MoWeFr@1700 SC Last administered on 03/09/19 18:26; Admin Dose 4,000 UNIT; Start 02/28/19 at 17:00 Olanzapine (Zyprexa) 2.5 mg DAILY GTB Last administered on 03/10/19 08:57; Admin Dose 2.5 MG; Start 03/01/19 at 09:00 Lansoprazole (Prevacid) 30 mg BID@0600,1800 GTB Last administered on 03/11/19 05:36; Admin Dose 30 MG; Start 02/28/19 at 18:00 Ferrous Sulfate (Feosol Liquid Cup) 300 mg BID GTB Last administered on 03/10/19at 21:11; Admin Dose 300 MG; Start 03/08/19 at 09:00 Heparin Sodium (Porcine) (Heparin (5000 Units/1ml)) 5,000 unit BID SC Last administered on 03/11/19 08:54; Admin Dose 5,000 UNIT; Start 03/10/19 at 21:00 PHYLICIA HOLCOMB NP March 11, 2019 13:11
--- NOTE | 2019-03-11 13:52 | CONS ---
Assessment/Plan Assessment/Plan Assessment/Plan (Daily) Assessment/Plan Assessment/Plan Assessment/Plan (Daily) Assessment/Plan Hospital Course (Demo Recall) 83 yo female presented with severe anemia Interval hx: No acute changes. Per RN, no GI bleeding noted. hgb 7.7. Tolerating tf at 30cc/hr. 1. Severe anemia,acute on chronic -GI bleed vs chronic disease -stable -retic 2.6, ferritin 4490, neg FOB twice 2. End-stage renal disease on dialysis. 3. Urinary tract infection. -positive yeast 4. Dysphagia, status post percutaneous endoscopic gastrostomy tube placement. 5. Hypertension. 6. Behavioral disorder. PLAN: Monitor HH Hold all anti coagulants PPI BID If GI bleeding, noted positive FOB, we will consider push endoscopy So for no acute bleeding or occult bleeding noted Patient is tolerating feeding no nausea no vomiting no evidence of gastroparesis Consultation Date/Type/Reason Admit Date/Time Feb 19, 2019 at 01:01 Initial Consult Date 02/23/19 Requesting Provider: JILLIAN HOLLAND MD Date/Time of Note DATE: 03/11/19 TIME: 13:52 24 HR Interval Summary Constitutional: no complaints, improved Exam/Review of Systems Exam Vitals Vital Signs Date Temp Pulse Resp B/P (MAP) Pulse Ox O2 O2 Flow FiO2 Time Delivery Rate 03/11/19 97.8 84 17 130/63 97 07:29 (85) 03/10/19 Room Air 14:00 Intake and Output 03/10/19 03/10/19 03/11/19 1515:00 23:00 07:00 IntakeIntake Total 350 ml 550 ml BalanceBalance 350 ml 550 ml Constitutional: alert, oriented, well developed Psych: no complaints, nl mood/affect Head: normocephalic, atraumatic Eyes: nl conjunctiva, EOMI, nl lids, nl sclera, PERRL ENMT: nl external ears & nose, nl lips & teeth, nl nasal mucosa & septum Neck: supple, non-tender Respiratory: clear to auscultation, normal air movement Cardiovascular: regular rate and rhythm, nl pulses Gastrointestinal: soft, nl liver, spleen, non-tender Musculoskeletal: nl extremities to inspection, nl gait and stance Extremities: normal pulses 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: [employer]ATIONS DIRECTOR II-XII intact, nl mental status, nl speech, nl strength Skin: nl turgor; No rash or lesions Lymph: nl lymph nodes Results Result Diagram: 03/11/19 0543 03/11/19 0543 Results 24hrs Laboratory Tests Test 03/10/19 21:12 03/11/19 05:43 03/11/19 08:52 03/11/19 12:59 Bedside Glucose 164 132 128 White Blood Count 10.4 Red Blood Count 2.91 L Hemoglobin 7.9 L Hematocrit 25.4 L Mean Corpuscular Volume 87.3 Mean Corpuscular 27.1 L Hemoglobin Mean Corpuscular 31.1 L Hemoglobin Concent Red Cell Distribution 15.9 H Width Platelet Count 299 Mean Platelet Volume 11.6 H Immature Granulocytes % 2.800 H Neutrophils % 65.9 Lymphocytes % 11.9 L Monocytes % 12.4 H Eosinophils % 6.1 Basophils % 0.9 Nucleated Red Blood 1.3 H Cells % Immature Granulocytes # 0.290 H Neutrophils # 6.9 Lymphocytes # 1.2 Monocytes # 1.3 H Eosinophils # 0.6 H Basophils # 0.1 Nucleated Red Blood 0.1 H Cells # Sodium Level 134 L Potassium Level 4.1 Chloride Level 102 Carbon Dioxide Level 24 Anion Gap 8 Blood Urea Nitrogen 38 #H Creatinine 1.79 H Est Glomerular Filtrat Rate mL/min Glucose Level 137 Calcium Level 8.5 Phosphorus Level 3.2 Magnesium Level 2.4 Medications Medication Current Medications IV Flush (NS 3 ml) 3 ml PER PROTOCOL IV ; Start 02/19/19 at 03:30 Lorazepam (Ativan) 0.5 mg Q8H PRN GTB .ANXIETY Last administered on 03/06/19at 15:04; Admin Dose 0.5 MG; Start 02/19/19 at 03:30 Ondansetron HCl (Zofran Inj) 4 mg Q6H PRN IV NAUSEA/VOMITING; Start 02/19/19 at 03:30 Acetaminophen (Tylenol Tab) 325 mg Q4H PRN GTB FOR FEVER 100AND ABOVE Last administered on 02/20/19at 20:13; Admin Dose 325 MG; Start 02/19/19 at 03:30 Acetaminophen (Tylenol Tab) 650 mg Q6H PRN GTB PAIN LEVEL 1-10/10 Last administered on 03/11/19at 12:12; Admin Dose 650 MG; Start 02/19/19 at 03:30 Amlodipine Besylate (Norvasc) 5 mg BID GTB Last administered on 03/10/19 21:11; Admin Dose 5 MG; Start 02/19/19 at 09:00 Ascorbic Acid (Vitamin C) 500 mg DAILY GTB Last administered on 03/10/19 08:57; Admin Dose 500 MG; Start 02/19/19 at 09:00 Aspirin (Aspirin) 81 mg DAILY GTB Last administered on 02/26/19 10:20; Admin Dose 81 MG; Start 02/19/19 at 09:00; Status Hold Atorvastatin Calcium (Lipitor) 40 mg QHS GTB Last administered on 03/10/19 21:10; Admin Dose 40 MG; Start 02/19/19 at 21:00 Folic Acid (Folic Acid) 1 mg DAILY GTB Last administered on 03/10/19 08:57; Admin Dose 1 MG; Start 02/19/19 at 09:00 Hydralazine HCl (Apresoline) 25 mg Q8 GTB Last administered on 03/11/19 05:36; Admin Dose 25 MG; Start 02/19/19 at 06:00 Linagliptin (Tradjenta) 5 mg DAILY GTB Last administered on 03/10/19 08:58; Admin Dose 5 MG; Start 02/19/19 at 09:00 Lorazepam (Ativan) 0.5 mg HS PRN GTB ANXIETY Last administered on 03/10/19 21:11; Admin Dose 0.5 MG; Start 02/19/19 at 03:30 Metoprolol Tartrate (Lopressor) 50 mg BID GTB Last administered on 03/10/19 21: 11; Admin Dose 50 MG; Start 02/19/19 at 09:00 Ondansetron HCl (Zofran Tab) 4 mg Q4H PRN GTB NAUSEA AND/OR VOMITING; Start 02/19/19 at 03:30 Valproate Sodium (Depakene Liquid Cup) 250 mg Q8 GTB Last administered on 03/11/19 05:36; Admin Dose 250 MG; Start 02/19/19 at 06:00 Docusate Sodium (Colace Liquid Cup) 100 mg DAILY GTB Last administered on 03/08/19 09:37; Admin Dose 100 MG; Start 02/19/19 at 09:00 Docusate Sodium (Colace Liquid Cup) 100 mg Q12H PRN GTB CONSTIPATION; Start 02/19/19 at 04:00 Acetaminophen (Tylenol Tab) 650 mg Q6H PRN GTB .PAIN 1-3 OR TEMP Last administered on 03/09/19 10:13; Admin Dose 650 MG; Start 02/19/19 at 03:35 Mupirocin (Bactroban) 1 applic BID TOP Last administered on 03/11/19 08:55; Admin Dose 1 APPLIC; Start 02/22/19 at 14:00 Insulin Glargine (Lantus) 4 units DAILY@2000 SC Last administered on 03/10/19 21:14; Admin Dose 4 UNITS; Start 02/26/19 at 20:00 Epoetin Michael-epbx (Retacrit (Esrd)) 4,000 unit MoWeFr@1700 SC Last administered on 03/09/19 18:26; Admin Dose 4,000 UNIT; Start 02/28/19 at 17:00 Olanzapine (Zyprexa) 2.5 mg DAILY GTB Last administered on 03/10/19 08:57; Admin Dose 2.5 MG; Start 03/01/19 at 09:00 Lansoprazole (Prevacid) 30 mg BID@0600,1800 GTB Last administered on 03/11/19 05:36; Admin Dose 30 MG; Start 02/28/19 at 18:00 Ferrous Sulfate (Feosol Liquid Cup) 300 mg BID GTB Last administered on 03/10/19 21:11; Admin Dose 300 MG; Start 03/08/19 at 09:00 Heparin Sodium (Porcine) (Heparin (5000 Units/1ml)) 5,000 unit BID SC Last administered on 03/11/19 08:54; Admin Dose 5,000 UNIT; Start 03/10/19 at 21:00 CHRISS WELCH MD March 11, 2019 13:52
--- NOTE | 2019-03-11 15:20 | CONS ---
Assessment/Plan Assessment/Plan Hospital Course (Demo Recall) 1. Fevers, likely secondary to urinary tract infection, now bld cx positive gram + Enterococcus 2. End-stage renal disease on hemodialysis. 3. Urinary tract infection. 4. Hypertension. 5. Dementia. 6. Diabetes mellitus type II. 7. Diastolic heart failure. 8. Moderate protein energy malnutrition with cachexia. 9. Osteoarthritis. 10. GT status 11. Anemia of chronic disease Assessment/Plan (Daily) -c/w HD, MWFR, one was today -a/b per ID, repeat cx neg so far -strict I and O -Left Chest Perm cath functioning. -c/w epoetin 3 times a week Consultation Date/Type/Reason Admit Date/Time Feb 19, 2019 at 01:01 Initial Consult Date 02/19/2019 Type of Consult nephrology Requesting Provider: JILLIAN HOLLAND MD Date/Time of Note DATE: 03/11/19 TIME: 15:19 Exam/Review of Systems Exam Vitals Vital Signs Date Temp Pulse Resp B/P (MAP) Pulse Ox O2 O2 Flow FiO2 Time Delivery Rate 03/11/19 98.2 94 17 137/65 94 14:01 (89) 03/10/19 Room Air 14:00 Intake and Output 03/10/19 03/10/19 03/11/19 1515:00 23:00 07:00 IntakeIntake Total 350 ml 550 ml BalanceBalance 350 ml 550 ml Exam left chest Permcath Constitutional: frail Head: normocephalic Neck: supple Respiratory: diminished breath sounds Cardiovascular: regular rate and rhythm Gastrointestinal: soft, other (GT ) 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: confused Results Result Diagram: 03/11/19 0543 03/11/19 0543 Results 24hrs Laboratory Tests Test 03/10/19 21:12 03/11/19 05:43 03/11/19 08:52 03/11/19 12:59 Bedside Glucose 164 132 128 White Blood Count 10.4 Red Blood Count 2.91 L Hemoglobin 7.9 L Hematocrit 25.4 L Mean Corpuscular Volume 87.3 Mean Corpuscular 27.1 L Hemoglobin Mean Corpuscular 31.1 L Hemoglobin Concent Red Cell Distribution 15.9 H Width Platelet Count 299 Mean Platelet Volume 11.6 H Immature Granulocytes % 2.800 H Neutrophils % 65.9 Lymphocytes % 11.9 L Monocytes % 12.4 H Eosinophils % 6.1 Basophils % 0.9 Nucleated Red Blood 1.3 H Cells % Immature Granulocytes # 0.290 H Neutrophils # 6.9 Lymphocytes # 1.2 Monocytes # 1.3 H Eosinophils # 0.6 H Basophils # 0.1 Nucleated Red Blood 0.1 H Cells # Sodium Level 134 L Potassium Level 4.1 Chloride Level 102 Carbon Dioxide Level 24 Anion Gap 8 Blood Urea Nitrogen 38 #H Creatinine 1.79 H Est Glomerular Filtrat Rate mL/min Glucose Level 137 Calcium Level 8.5 Phosphorus Level 3.2 Magnesium Level 2.4 Medications Medication Current Medications IV Flush (NS 3 ml) 3 ml PER PROTOCOL IV ; Start 02/19/19 at 03:30 Lorazepam (Ativan) 0.5 mg Q8H PRN GTB .ANXIETY Last administered on 03/06/19 15:04; Admin Dose 0.5 MG; Start 02/19/19 at 03:30 Ondansetron HCl (Zofran Inj) 4 mg Q6H PRN IV NAUSEA/VOMITING; Start 02/19/19 at 03:30 Acetaminophen (Tylenol Tab) 325 mg Q4H PRN GTB FOR FEVER 100AND ABOVE Last administered on 02/20/19 20:13; Admin Dose 325 MG; Start 02/19/19 at 03:30 Acetaminophen (Tylenol Tab) 650 mg Q6H PRN GTB PAIN LEVEL 1-10/10 Last administered on 03/11/19 12:12; Admin Dose 650 MG; Start 02/19/19 at 03:30 Amlodipine Besylate (Norvasc) 5 mg BID GTB Last administered on 03/10/19 21:11; Admin Dose 5 MG; Start 02/19/19 at 09:00 Ascorbic Acid (Vitamin C) 500 mg DAILY GTB Last administered on 03/10/19 08:57; Admin Dose 500 MG; Start 02/19/19 at 09:00 Aspirin (Aspirin) 81 mg DAILY GTB Last administered on 02/26/19 10:20; Admin Dose 81 MG; Start 02/19/19 at 09:00; Status Hold Atorvastatin Calcium (Lipitor) 40 mg QHS GTB Last administered on 03/10/19 21:10; Admin Dose 40 MG; Start 02/19/19 at 21:00 Folic Acid (Folic Acid) 1 mg DAILY GTB Last administered on 03/10/19 08:57; Admin Dose 1 MG; Start 02/19/19 at 09:00 Hydralazine HCl (Apresoline) 25 mg Q8 GTB Last administered on 03/11/19 05:36; Admin Dose 25 MG; Start 02/19/19 at 06:00 Linagliptin (Tradjenta) 5 mg DAILY GTB Last administered on 03/10/19 08:58; Admin Dose 5 MG; Start 02/19/19 at 09:00 Lorazepam (Ativan) 0.5 mg HS PRN GTB ANXIETY Last administered on 03/10/19 21:11; Admin Dose 0.5 MG; Start 02/19/19 at 03:30 Metoprolol Tartrate (Lopressor) 50 mg BID GTB Last administered on 03/10/19 21:11; Admin Dose 50 MG; Start 02/19/19 at 09:00 Ondansetron HCl (Zofran Tab) 4 mg Q4H PRN GTB NAUSEA AND/OR VOMITING; Start 02/19/19 at 03:30 Valproate Sodium (Depakene Liquid Cup) 250 mg Q8 GTB Last administered on 05:36; Admin Dose 250 MG; Start 02/19/19 at 06:00 Docusate Sodium (Colace Liquid Cup) 100 mg DAILY GTB Last administered on 03/08/19 09:37; Admin Dose 100 MG; Start 02/19/19 at 09:00 Docusate Sodium (Colace Liquid Cup) 100 mg Q12H PRN GTB CONSTIPATION; Start 02/19/19 at 04:00 Acetaminophen (Tylenol Tab) 650 mg Q6H PRN GTB .PAIN 1-3 OR TEMP Last administered on 03/09/19 10:13; Admin Dose 650 MG; Start 02/19/19 at 03:35 Mupirocin (Bactroban) 1 applic BID TOP Last administered on 03/11/19 08:55; Admin Dose 1 APPLIC; Start 02/22/19 at 14:00 Insulin Glargine (Lantus) 4 units DAILY@2000 SC Last administered on 03/10/19 21:14; Admin Dose 4 UNITS; Start 02/26/19 at 20:00 Epoetin Michael-epbx (Retacrit (Esrd)) 4,000 unit MoWeFr@1700 SC Last administered on 03/09/19 18:26; Admin Dose 4,000 UNIT; Start 02/28/19 at 17:00 Olanzapine (Zyprexa) 2.5 mg DAILY GTB Last administered on 03/10/19 08:57; Admin Dose 2.5 MG; Start 03/01/19 at 09:00 Lansoprazole (Prevacid) 30 mg BID@0600,1800 GTB Last administered on 03/11/19 05:36; Admin Dose 30 MG; Start 02/28/19 at 18:00 Ferrous Sulfate (Feosol Liquid Cup) 300 mg BID GTB Last administered on 03/10/19 21:11; Admin Dose 300 MG; Start 03/08/19 at 09:00 Heparin Sodium (Porcine) (Heparin (5000 Units/1ml)) 5,000 unit BID SC Last administered on 03/11/19 08:54; Admin Dose 5,000 UNIT; Start 03/10/19 at 21:00 FLAVIO CLAYTON March 11, 2019 15:20
[2019-03-11] MEDS: EPOETIN ALFA-EPBX (ESRD) 4,000 UNIT/ML VIAL SC SCH (18:26)
[2019-03-11] MEDS: LORAZEPAM 0.5 MG TAB GTB PRN (20:24)
[2019-03-11] MEDS: ATORVASTATIN 40 MG TAB GTB SCH (20:25)
[2019-03-11] MEDS: INSULIN GLARGINE [LANTus] (100 UNITS/ML) SYG SC SCH (20:30)
[2019-03-12] VITALS (20 sets, daily range): BP systolic 116–160; BP diastolic 45–76; PULSE 73–94; RESP 14–20
[2019-03-12] MEDS: VALPROIC ACID LIQUID CUP 250 MG/5 ML CUP GTB SCH ×4 (05:20→20:29)
[2019-03-12] MEDS: LANSOPRAZOLE 30 MG CAP GTB SCH ×2 (05:20→18:00)
[2019-03-12] MEDS: AMLODIPINE 5 MG TAB GTB SCH ×2 (09:00→20:29)
[2019-03-12] MEDS: MUPIROCIN 2% 22 GM OINT TOP SCH ×2 (09:00→20:42)
[2019-03-12] MEDS: HEPARIN 5,000 UNIT/1 ML VIAL SC SCH ×2 (09:00→20:29)
[2019-03-12] MEDS: FERROUS SULFATE 60 MG/ML 5ML CUP GTB SCH ×2 (09:00→20:28)
[2019-03-12] MEDS: METOPROLOL 50 MG TAB GTB SCH ×2 (09:00→20:28)
[2019-03-12] MEDS: ALBUTEROL/IPRATROPIUM (NEB) 3 ML AMP HHN SCH ×4 (10:00→21:15)
[2019-03-12] MEDS ORDERED: ALBUTEROL/IPRATROPIUM (NEB) 3 ML AMP HHN PRN (10:00)
[2019-03-12] MEDS ORDERED: FUROSEMIDE 40 MG INJ IV STA (10:02)
--- NOTE | 2019-03-12 10:21 | EN ---
Date/Time of Note Date/Time of Note DATE: 03/12/19 TIME: 10:16 Event Note Medicine Medicine Event Note [employer] called on patient at 9:50 for altered mental status and hypoxia Upon arrival, patient was non arousable and noted with saturations in the 70s%. She was agonal breathing with diminished breath sounds. Ventimask was placed on patient by RT at 15L and saturations improved to 98%. CXR was ordered and showed pulmonary congestion. Lasix 40mg IV given. STAT labs ordered as well. Patients BP SBP 140 and HR stable. ABG revealed respiratory acidosis with pH 7.2 and pCO2 68.5. Glucose 270s. Patient placed on BIPAP and transferred to Telemetry for close monitoring. Primary physician and patients family informed of event by nursing. General: agonal breathing, nonresponsive, grimaces when suctioned CVS: S1, S2, regular rate and rhythm. no murmurs Lungs: Diminished diffusely with coarse breath sounds. no wheezing appreciated GI: PEG in place. soft, nontender, nondistended Ext: muscle wasting. no edema appreciated Skin: no lesions or rashes Awaiting stat lab results. >30 minutes of critical care time spent with patient BETSY KINNEY MD March 12, 2019 10:21
--- NOTE | 2019-03-12 12:02 | CONS ---
Consultation Date/Type/Reason Admit Date/Time Feb 19, 2019 at 01:01 Initial Consult Date SUBJECTIVE: Patient was noted to be desaturating and non-responsive. Currently on Tele and BiPAP. NO fevers. STAT CXR showed pulm congestion. Currently on IV lasix. VS: stable T: 98.1 LABS: Reviewed. WBC-15.8 Antimicrobials: none Indwelling: Left subclavian permacath, PEG Microbiology: Urine culture on admission grew Dominique glabrata. Blood culture gr owing Enterococcus ==Repeat blood cultures from hemodialysis catheter negative CXR: : FINDINGS: Left internal jugular dialysis catheter with tip superimposing right atrium remains in place. Heart remains enlarged. Aorta is diffusely atherosclerotic. There is no pneumothorax or right pleural effusion. Small left pleural effusion is unchanged. Mild to moderate bilateral interstitial infiltrates have not significantly changed and compatible with pulmonary edema. IMPRESSION: 1. No significant interval change. 2D ECHO: no vegetations per ECHO Physical examination: GEN: This is a chronically ill-appearing wasted elderly woman, who is in no distress. HENT: Head atraumatic normocephalic. Neck is supple. PULM: Chest rise symmetrical breath sounds with scattered rhonchi, diminished bases. Heart: S1-S2. Abdomen soft bowel sounds present. Extremities without cyanosis edema. Assessment: 1. S/p sepsis, present on admission 2. Status post recurrent UTI 3. Bacteremia, repeat bld cx neg, s/p cath changed 4. End-stage renal disease, hemodialysis dependent 5. Anemia 6. 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 CXR noted. Start Merrem 500mg IV q12 hrs. WBC was noted elevated. Blood CX ordered. Requesting Provider: JILLIAN HOLLAND MD Date/Time of Note DATE: 03/12/19 TIME: 11:57 Exam/Review of Systems Exam Vitals Vital Signs Date Temp Pulse Resp B/P (MAP) Pulse Ox O2 O2 Flow FiO2 Time Delivery Rate 03/12/19 99 10:56 03/12/19 98.1 14 151/66 100 10:42 (94) 03/12/19 100 10:30 03/12/19 Non 10.0 09:50 Rebreather Intake and Output 03/11/19 03/11/19 03/12/19 1515:00 23:00 07:00 IntakeIntake Total 590 ml 500 ml OutputOutput Total 4400 ml BalanceBalance -3810 ml 500 ml Results Result Diagram: 03/12/19 1013 03/12/19 1013 Results 24hrs Laboratory Tests Test 03/11/19 12:59 03/11/19 17:28 03/11/19 20:29 03/12/19 09:41 Bedside Glucose 128 117 145 Blood Gas Specimen Blood arterial Source Arterial Blood 03/12/2019 10:00:39 Date Drawn AM Arterial Blood pH 7.234 *L (Temp corrected) Arterial Blood 68.5 H pCO2 (Temp correct) Arterial Blood pO2 71.3 L (Temp corrected) Arterial Blood 28.3 H HCO3 Arterial Blood 0.1 Base Excess Arterial Blood 91.0 L Oxygen Saturation Mil Test ACCEPTAB Arterial Blood Gas Right Radial Puncture Site Arterial 1.6 Blood Carboxyhemog lobin Arterial Blood 0.4 Methemoglobin Blood Gas A-a O2 573.2 H Differential Oxyhemoglobin 89.2 L Percent Blood Gas 37.0 Temperature Blood Gas Modality MASK - NRB FiO2 100.[address] KINNEY Value Read Back Blood Gas Notified Kris Whom Blood Gas Notified 03/12/2019 10:09:07 Time AM Test 03/12/19 09:43 03/12/19 10:13 Bedside Glucose 274 H White Blood Count 15.8 #H Red Blood Count 2.84 L Hemoglobin 7.7 L Hematocrit 25.1 L Mean Corpuscular 88.4 Volume Mean Corpuscular 27.1 L Hemoglobin Mean Corpuscular 30.7 L Hemoglobin Concent Red Cell 16.2 H Distribution Width Platelet Count 391 # Mean Platelet 11.5 H Volume Immature 3.700 H Granulocytes % Neutrophils % Segmented 67 Neutrophils % (Manual) Band Neutrophils % 3 (Manual) Lymphocytes % Lymphocytes % 12 L (Manual) Reactive 1 H Lymphocytes % (Manual) Monocytes % Monocytes % 11 (Manual) Eosinophils % Eosinophils % 2 (Manual) Basophils % Basophils % 1 (Manual) Metamyelocytes % 1 H (manual) Myelocytes % 2 H (Manual) Nucleated Red 4 H Blood Cells % Immature 0.580 H Granulocytes # Neutrophils # Neutrophils # 10.6 H (Manual) Band Neutrophils # 0.4 Lymphocytes 1.8 (Manual) Lymphocytes # Reactive 0.1 H Lymphocytes # Monocytes # Monocytes # 1.7 H (Manual) Eosinophils # Basophils # Basophils # 0.1 H (Manual) Metamyelocytes # 0.1 H Myelocytes # 0.3 H Nucleated Red Blood Cells # Platelet Estimate NORMAL Polychromasia 1+ Hypochromasia 1+ Poikilocytosis 1+ Anisocytosis 1+ Microcytosis 1+ Sodium Level 135 Potassium Level 4.5 Chloride Level 100 Carbon Dioxide 26 Level Anion Gap 9 Blood Urea 28 H Nitrogen Creatinine 1.32 H Est Glomerular Filtrat Rate mL/min Glucose Level 246 #H Calcium Level 8.6 Magnesium Level 2.3 Total Bilirubin 0.5 Direct Bilirubin 0.00 Indirect Bilirubin 0.5 Aspartate Amino 33 Transf (AST/SGOT) Alanine 16 Aminotransferase ( ALT/SGPT) Alkaline 217 H Phosphatase Total Protein 6.8 Albumin 3.0 L Globulin 3.80 H Albumin/Globulin 0.78 Ratio Medications Medication Current Medications IV Flush (NS 3 ml) 3 ml PER PROTOCOL IV ; Start 02/19/19 at 03:30 Lorazepam (Ativan) 0.5 mg Q8H PRN GTB .ANXIETY Last administered on 03/06/19 15:04; Admin Dose 0.5 MG; Start 02/19/19 at 03:30 Ondansetron HCl (Zofran Inj) 4 mg Q6H PRN IV NAUSEA/VOMITING; Start 02/19/19 at 03:30 Acetaminophen (Tylenol Tab) 325 mg Q4H PRN GTB FOR FEVER 100AND ABOVE Last administered on 02/20/19 20:13; Admin Dose 325 MG; Start 02/19/19 at 03:30 Acetaminophen (Tylenol Tab) 650 mg Q6H PRN GTB PAIN LEVEL 1-10/10 Last administered on 03/11/19 12:12; Admin Dose 650 MG; Start 02/19/19 at 03:30 Amlodipine Besylate (Norvasc) 5 mg BID GTB Last administered on 03/11/19 18:28; Admin Dose 5 MG; Start 02/19/19 at 09:00 Ascorbic Acid (Vitamin C) 500 mg DAILY GTB Last administered on 03/11/19 18:29; Admin Dose 500 MG; Start 02/19/19 at 09:00 Aspirin (Aspirin) 81 mg DAILY GTB Last administered on 02/26/19 10:20; Admin Dose 81 MG; Start 02/19/19 at 09:00; Status Hold Atorvastatin Calcium (Lipitor) 40 mg QHS GTB Last administered on 03/11/19 20:25; Admin Dose 40 MG; Start 02/19/19 at 21:00 Folic Acid (Folic Acid) 1 mg DAILY GTB Last administered on 03/11/19 18:29; Admin Dose 1 MG; Start 02/19/19 at 09:00 Hydralazine HCl (Apresoline) 25 mg Q8 GTB Last administered on 03/12/19 05:21; Admin Dose 25 MG; Start 02/19/19 at 06:00 Linagliptin (Tradjenta) 5 mg DAILY GTB Last administered on 03/11/19 18:29; Admin Dose 5 MG; Start 02/19/19 at 09:00 Lorazepam (Ativan) 0.5 mg HS PRN GTB ANXIETY Last administered on 03/11/19 20:24; Admin Dose 0.5 MG; Start 02/19/19 at 03:30 Metoprolol Tartrate (Lopressor) 50 mg BID GTB Last administered on 03/11/19 18:28; Admin Dose 50 MG; Start 02/19/19 at 09:00 Ondansetron HCl (Zofran Tab) 4 mg Q4H PRN GTB NAUSEA AND/OR VOMITING; Start 02/19/19 at 03:30 Valproate Sodium (Depakene Liquid Cup) 250 mg Q8 GTB Last administered on 03/12/19 05:20; Admin Dose 250 MG; Start 02/19/19 at 06:00 Docusate Sodium (Colace Liquid Cup) 100 mg DAILY GTB Last administered on 03/11/19 18:29; Admin Dose 100 MG; Start 02/19/19 at 09:00 Docusate Sodium (Colace Liquid Cup) 100 mg Q12H PRN GTB CONSTIPATION; Start 02/19/19 at 04:00 Acetaminophen (Tylenol Tab) 650 mg Q6H PRN GTB .PAIN 1-3 OR TEMP Last administered on 03/09/19 10:13; Admin Dose 650 MG; Start 02/19/19 at 03:35 Mupirocin (Bactroban) 1 applic BID TOP Last administered on 03/11/19 20:35; Admin Dose 1 APPLIC; Start 02/22/19 at 14:00 Insulin Glargine (Lantus) 4 units DAILY@2000 SC Last administered on 03/11/19 20:30; Admin Dose 4 UNITS; Start 02/26/19 at 20:00 Epoetin Michael-epbx (Retacrit (Esrd)) 4,000 unit MoWeFr@1700 SC Last administered on 03/11/19 18:26; Admin Dose 4,000 UNIT; Start 02/28/19 at 17:00 Olanzapine (Zyprexa) 2.5 mg DAILY GTB Last administered on 03/11/19 18:29; Admin Dose 2.5 MG; Start 03/01/19 at 09:00 Lansoprazole (Prevacid) 30 mg BID@0600,1800 GTB Last administered on 03/12/19 05:20; Admin Dose 30 MG; Start 02/28/19 at 18:00 Ferrous Sulfate (Feosol Liquid Cup) 300 mg BID GTB Last administered on 03/11/19 18:27; Admin Dose 300 MG; Start 03/08/19 at 09:00 Heparin Sodium (Porcine) (Heparin (5000 Units/1ml)) 5,000 unit BID SC Last administered on 03/11/19 20:31; Admin Dose 5,000 UNIT; Start 03/10/19 at 21:00 Albuterol/ Ipratropium (Duoneb) 3 ml Q4H RESP THERAPY HHN ; Start 03/12/19 at 10:00 Albuterol/ Ipratropium (Duoneb) 3 ml Q2H RESP THERAPY PRN HHN SHORTNESS OF BREATH; Start 03/12/19 at 10:00 SCOTT SHEEHAN March 12, 2019 12:02
[2019-03-12] MEDS: MEROPENEM 500MG/50 ML (PMX) 50 ML IVPB SCH (13:23)
--- NOTE | 2019-03-12 14:40 | PN ---
DATE: 03/12/2019 SUBJECTIVE: Patient unfortunately noted to be more lethargic and had some agonal breathing and oxyge n dropped. An ABG was performed which showed CO2 retention and acidosis, pH was 7.23, pCO2 of 68, bi carbonate is 28, saturation 71 PaO2 71, saturation was 91%. The patient was placed on a nonrebreathe r mask and then placed on BiPAP after the above results. The patient is DNR/DNI. Patient was transf erred to telemetry unit. Currently has a sitter. White count jumped up to 15.8. Some concern for p ossibly the patient may have aspirated. Chest x-ray was done which showed no interval change, but mi ld to moderate bilateral interstitial infiltrates have not significantly changed, compatible with pul monary edema. Again, patient has been dialyzed regularly 3 times a week. I am more concerned about aspiration causing the above. PHYSICAL EXAMINATION: VITAL SIGNS: Temperature 98.1, pulse 99, respirations 14, blood pressure 115/66, saturation 100%. GENERAL: Patient is in no acute distress. The patient is currently lethargic but BiPAP is in place. CARDIOVASCULAR: S1, S2. LUNGS: Decreased bilaterally, more on the left compared to the right. ABDOMEN: Soft, G-tube in place. EXTREMITIES: Upper right extremity +1 edema. LABORATORY DATA: White count 15.8, hemoglobin 10.7, hematocrit 25, platelets 391/neutrophils 67%, ba nds 3%, lymphocytes 12%. Chemistry: Sodium 135, potassium 4.5, chloride 100, bicarbonate 26, BUN 28 , creatinine 0.32, glucose of 246. MEDICATIONS: Reviewed, which include: 1. DuoNeb. 2. Heparin. 3. Ferrous sulfate. 4. Paxil. 5. Prevacid. 6. Epogen. 7. Lantus. 8. Bactroban. 9. Lipitor. 10. Norvasc. 11. Vitamin C. 12. Folic acid. 13. Tradjenta. 14. Lopressor. 15. Colace. 16. Depakote. 17. Tylenol. P.r.n. medications all reviewed. ASSESSMENT AND PLAN: This is an unfortunate 83-year-old very sick [place] female with history of en d-stage renal disease, vascular dementia, hypertension, diabetes mellitus, presented with fevers, was found to have UTI bacteremia, line sepsis, status post Perm-A-Cath exchange. 1. Respiratory. The patient with acute respiratory failure. Differential diagnosis includes aspira tion, pulmonary embolism, pulmonary edema, etc. O2 support and BiPAP will be placed. Monitor the alvaro collins's mental status. Breathing treatment to improve when she is more awake. 2. Cardiovascular: Continue heparin for DVT prophylaxis. Overall, vitals are stable despite the ab ove hypoxic episodes. 3. End-stage renal disease, dialysis Thursday, Thursday, Thursday. Nephrology to follow. May need ear lier dialysis. 4. Anemia. May consider transfusion with next dialysis. Continue Epogen and iron supplements. 5. Urinary tract infection, status post treatment with Dominique glabrata, but patient may have aspira gilbert. May consider antibiotics again. 6. Diabetes mellitus. Continue above insulin. May increase slightly. 7. Psychiatric, started on Zyprexa and increase it if sedated. 8. Dysphagia. Continue G-tube feeding at 30 mL an hour. 9. The patient will be monitored closely with a sitter. Case discussed with nursing staff. We will follow. I left a message with the daughter, Alejandro [phone]. Dictated By: DYLON HULL/MADAN Conf#: [id number] DID#: [id number]
--- NOTE | 2019-03-12 15:19 | CONS ---
Assessment/Plan Assessment/Plan Hospital Course (Demo Recall) 1. Fevers, likely secondary to urinary tract infection, now bld cx positive gram + Enterococcus 2. End-stage renal disease on hemodialysis. 3. Urinary tract infection. 4. Hypertension. 5. Dementia. 6. Diabetes mellitus type II. 7. Diastolic heart failure. 8. Moderate protein energy malnutrition with cachexia. 9. Osteoarthritis. 10. GT status 11. Anemia of chronic disease 12. REsp failure, On BIPAP Assessment/Plan (Daily) -c/w HD, MWFR, one was yesterday -a/b per ID, repeat cx neg so far -strict I and O -WBC rising, ID on case, bl, cul drawn -Left Chest Perm cath functioning. -c/w epoetin 3 times a week Consultation Date/Type/Reason Admit Date/Time Feb 19, 2019 at 01:01 Initial Consult Date 02/19/2019 Type of Consult nephrology Requesting Provider: JILLIAN HOLLAND MD Date/Time of Note DATE: 03/12/19 TIME: 15:18 24 HR Interval Summary Subjective hx not possible: pt critical status Exam/Review of Systems Exam Vitals Vital Signs Date Temp Pulse Resp B/P (MAP) Pulse Ox O2 O2 Flow FiO2 Time Delivery Rate 03/12/19 98.5 79 16 136/63 100 15:03 (87) 03/12/19 90 12:32 03/12/19 Non 10.0 09:50 Rebreather Intake and Output 03/11/19 03/11/19 03/12/19 1515:00 23:00 07:00 IntakeIntake Total 590 ml 500 ml OutputOutput Total 4400 ml BalanceBalance -3810 ml 500 ml Exam Left chest Permcath Constitutional: frail Neck: supple Respiratory: diminished breath sounds, other (BIPAP mask) Cardiovascular: irregular rhythm Gastrointestinal: soft, other (GT ) Musculoskeletal: muscle weakness Results Result Diagram: 03/12/19 1013 03/12/19 1013 Results 24hrs Laboratory Tests Test 03/11/19 17:28 03/11/19 20:29 03/12/19 09:41 03/12/19 09:43 Bedside Glucose 117 145 274 H Blood Gas Specimen Blood arterial Source Arterial Blood 03/12/2019 10:00:39 Date Drawn AM Arterial Blood pH 7.234 *L (Temp corrected) Arterial Blood 68.5 H pCO2 (Temp correct) Arterial Blood pO2 71.3 L (Temp corrected) Arterial Blood 28.3 H HCO3 Arterial Blood 0.1 Base Excess Arterial Blood 91.0 L Oxygen Saturation Mil Test ACCEPTAB Arterial Blood Gas Right Radial Puncture Site Arterial 1.6 Blood Carboxyhemog lobin Arterial Blood 0.4 Methemoglobin Blood Gas A-a O2 573.2 H Differential Oxyhemoglobin 89.2 L Percent Blood Gas 37.0 Temperature Blood Gas Modality MASK - NRB FiO2 100.[address] KINNEY Value Read Back Blood Gas Notified Kris Whom Blood Gas Notified 03/12/2019 10:09:07 Time AM Test 03/12/19 10:13 03/12/19 12:58 White Blood Count 15.8 #H Red Blood Count 2.84 L Hemoglobin 7.7 L Hematocrit 25.1 L Mean Corpuscular 88.4 Volume Mean Corpuscular 27.1 L Hemoglobin Mean Corpuscular 30.7 L Hemoglobin Concent Red Cell 16.2 H Distribution Width Platelet Count 391 # Mean Platelet 11.5 H Volume Immature 3.700 H Granulocytes % Neutrophils % Segmented 67 Neutrophils % (Manual) Band Neutrophils % 3 (Manual) Lymphocytes % Lymphocytes % 12 L (Manual) Reactive 1 H Lymphocytes % (Manual) Monocytes % Monocytes % 11 (Manual) Eosinophils % Eosinophils % 2 (Manual) Basophils % Basophils % 1 (Manual) Metamyelocytes % 1 H (manual) Myelocytes % 2 H (Manual) Nucleated Red 4 H Blood Cells % Immature 0.580 H Granulocytes # Neutrophils # Neutrophils # 10.6 H (Manual) Band Neutrophils # 0.4 Lymphocytes 1.8 (Manual) Lymphocytes # Reactive 0.1 H Lymphocytes # Monocytes # Monocytes # 1.7 H (Manual) Eosinophils # Basophils # Basophils # 0.1 H (Manual) Metamyelocytes # 0.1 H Myelocytes # 0.3 H Nucleated Red Blood Cells # Platelet Estimate NORMAL Polychromasia 1+ Hypochromasia 1+ Poikilocytosis 1+ Anisocytosis 1+ Microcytosis 1+ Sodium Level 135 Potassium Level 4.5 Chloride Level 100 Carbon Dioxide 26 Level Anion Gap 9 Blood Urea 28 H Nitrogen Creatinine 1.32 H Est Glomerular Filtrat Rate mL/min Glucose Level 246 #H Calcium Level 8.6 Magnesium Level 2.3 Total Bilirubin 0.5 Direct Bilirubin 0.00 Indirect Bilirubin 0.5 Aspartate Amino 33 Transf (AST/SGOT) Alanine 16 Aminotransferase ( ALT/SGPT) Alkaline 217 H Phosphatase Total Protein 6.8 Albumin 3.0 L Globulin 3.80 H Albumin/Globulin 0.78 Ratio Bedside Glucose 216 Medications Medication Current Medications IV Flush (NS 3 ml) 3 ml PER PROTOCOL IV ; Start 02/19/19 at 03:30 Lorazepam (Ativan) 0.5 mg Q8H PRN GTB .ANXIETY Last administered on 03/06/19 15:04; Admin Dose 0.5 MG; Start 02/19/19 at 03:30 Ondansetron HCl (Zofran Inj) 4 mg Q6H PRN IV NAUSEA/VOMITING; Start 02/19/19 at 03:30 Acetaminophen (Tylenol Tab) 325 mg Q4H PRN GTB FOR FEVER 100AND ABOVE Last administered on 02/20/19 20:13; Admin Dose 325 MG; Start 02/19/19 at 03:30 Acetaminophen (Tylenol Tab) 650 mg Q6H PRN GTB PAIN LEVEL 1-10/10 Last administered on 03/11/19 12:12; Admin Dose 650 MG; Start 02/19/19 at 03:30 Amlodipine Besylate (Norvasc) 5 mg BID GTB Last administered on 03/11/19 18:28; Admin Dose 5 MG; Start 02/19/19 at 09:00 Ascorbic Acid (Vitamin C) 500 mg DAILY GTB Last administered on 03/11/19 18:29; Admin Dose 500 MG; Start 02/19/19 at 09:00 Aspirin (Aspirin) 81 mg DAILY GTB Last administered on 02/26/19 10:20; Admin Dose 81 MG; Start 02/19/19 at 09:00; Status Hold Atorvastatin Calcium (Lipitor) 40 mg QHS GTB Last administered on 03/11/19 20:25; Admin Dose 40 MG; Start 02/19/19 at 21:00 Folic Acid (Folic Acid) 1 mg DAILY GTB Last administered on 03/11/19 18:29; Admin Dose 1 MG; Start 02/19/19 at 09:00 Hydralazine HCl (Apresoline) 25 mg Q8 GTB Last administered on 03/12/19 13:24; Admin Dose 25 MG; Start 02/19/19 at 06:00 Linagliptin (Tradjenta) 5 mg DAILY GTB Last administered on 03/11/19 18:29; Admin Dose 5 MG; Start 02/19/19 at 09:00 Lorazepam (Ativan) 0.5 mg HS PRN GTB ANXIETY Last administered on 03/11/19 20:24; Admin Dose 0.5 MG; Start 02/19/19 at 03:30 Metoprolol Tartrate (Lopressor) 50 mg BID GTB Last administered on 03/11/19 18:28; Admin Dose 50 MG; Start 02/19/19 at 09:00 Ondansetron HCl (Zofran Tab) 4 mg Q4H PRN GTB NAUSEA AND/OR VOMITING; Start 02/19/19 at 03:30 Valproate Sodium (Depakene Liquid Cup) 250 mg Q8 GTB Last administered on 03/12/19 13:24; Admin Dose 250 MG; Start 02/19/19 at 06:00 Docusate Sodium (Colace Liquid Cup) 100 mg DAILY GTB Last administered on 03/11/19 18:29; Admin Dose 100 MG; Start 02/19/19 at 09:00 Docusate Sodium (Colace Liquid Cup) 100 mg Q12H PRN GTB CONSTIPATION; Start 02/19/19 at 04:00 Acetaminophen (Tylenol Tab) 650 mg Q6H PRN GTB .PAIN 1-3 OR TEMP Last adminis tered on 03/09/19 10:13; Admin Dose 650 MG; Start 02/19/19 at 03:35 Mupirocin (Bactroban) 1 applic BID TOP Last administered on 03/11/19 20:35; Admin Dose 1 APPLIC; Start 02/22/19 at 14:00 Insulin Glargine (Lantus) 4 units DAILY@2000 SC Last administered on 03/11/19 20:30; Admin Dose 4 UNITS; Start 02/26/19 at 20:00 Epoetin Michael-epbx (Retacrit (Esrd)) 4,000 unit MoWeFr@1700 SC Last administered on 03/11/19 18:26; Admin Dose 4,000 UNIT; Start 02/28/19 at 17:00 Olanzapine (Zyprexa) 2.5 mg DAILY GTB Last administered on 03/11/19 18:29; Admin Dose 2.5 MG; Start 03/01/19 at 09:00 Lansoprazole (Prevacid) 30 mg BID@0600,1800 GTB Last administered on 03/12/19 05:20; Admin Dose 30 MG; Start 02/28/19 at 18:00 Ferrous Sulfate (Feosol Liquid Cup) 300 mg BID GTB Last administered on 03/11/19 18:27; Admin Dose 300 MG; Start 03/08/19 at 09:00 Heparin Sodium (Porcine) (Heparin (5000 Units/1ml)) 5,000 unit BID SC Last administered on 03/11/19 20:31; Admin Dose 5,000 UNIT; Start 03/10/19 at 21:00 Albuterol/ Ipratropium (Duoneb) 3 ml Q4H RESP THERAPY HHN Last administered on 03/12/19 12:30; Admin Dose 3 ML; Start 03/12/19 at 10:00 Albuterol/ Ipratropium (Duoneb) 3 ml Q2H RESP THERAPY PRN HHN SHORTNESS OF BREATH; Start 03/12/19 at 10:00 Meropenem/Sodium Chloride 50 ml @ 100 mls/hr Q24H IVPB Last administered on 03/12/19 13:23; Admin Dose 100 MLS/HR; Start 03/12/19 at 14:00 FLAVIO CLAYTON March 12, 2019 15:19
--- NOTE | 2019-03-12 15:50 | CONS ---
Assessment/Plan Assessment/Plan Assessment/Plan (Daily) Assessment/Plan Assessment/Plan Assessment/Plan (Daily) Assessment/Plan Hospital Course (Demo Recall) 83 yo female presented with severe anemia Interval hx: No acute changes. Per RN, no GI bleeding noted. hgb 7.7. Tolerating tf at 30cc/hr. 1. Severe anemia,acute on chronic -GI bleed vs chronic disease -stable -retic 2.6, ferritin 4490, neg FOB twice 2. End-stage renal disease on dialysis. 3. Urinary tract infection. -positive yeast 4. Dysphagia, status post percutaneous endoscopic gastrostomy tube placement. 5. Hypertension. 6. Behavioral disorder. 7 clogged to G-tube PLAN: Monitor HH Hold all anti coagulants PPI BID If GI bleeding, noted positive FOB, we will consider push endoscopy So for no acute bleeding or occult bleeding noted Patient is tolerating feeding no nausea no vomiting no evidence of gastroparesis Staff has been advised to declog the G-tube with cola. If it does not work then will change the G-tube Consultation Date/Type/Reason Admit Date/Time Feb 19, 2019 at 01:01 Initial Consult Date 02/23/19 Requesting Provider: JILLIAN HOLLAND MD Date/Time of Note DATE: 03/12/19 TIME: 15:49 24 HR Interval Summary Free Text/Dictation Patient G-tube is clogged Constitutional: poor po Exam/Review of Systems Exam Vitals Vital Signs Date Temp Pulse Resp B/P (MAP) Pulse Ox O2 O2 Flow FiO2 Time Delivery Rate 03/12/19 98.5 79 16 136/63 100 15:03 (87) 03/12/19 90 12:32 03/12/19 Non 10.0 09:50 Rebreather Intake and Output 03/11/19 03/11/19 03/12/19 1515:00 23:00 07:00 IntakeIntake Total 590 ml 500 ml OutputOutput Total 4400 ml BalanceBalance -3810 ml 500 ml Constitutional: alert, oriented, well developed Psych: no complaints, nl mood/affect Head: normocephalic, atraumatic Eyes: nl conjunctiva, EOMI, nl lids, nl sclera, PERRL ENMT: nl external ears & nose, nl lips & teeth, nl nasal mucosa & septum Neck: supple, non-tender Respiratory: clear to auscultation, normal air movement Cardiovascular: regular rate and rhythm, nl pulses Gastrointestinal: soft, nl liver, spleen, non-tender Musculoskeletal: nl extremities to inspection, nl gait and stance Extremities: normal pulses 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: PROTOTYPE ENGINEER II-XII intact, nl mental status, nl speech, nl strength Skin: nl turgor; No rash or lesions Lymph: nl lymph nodes Results Result Diagram: 03/12/19 1013 03/12/19 1013 Results 24hrs Laboratory Tests Test 03/11/19 17:28 03/11/19 20:29 03/12/19 09:41 03/12/19 09:43 Bedside Glucose 117 145 274 H Blood Gas Specimen Blood arterial Source Arterial Blood 03/12/2019 10:00:39 Date Drawn AM Arterial Blood pH 7.234 *L (Temp corrected) Arterial Blood 68.5 H pCO2 (Temp correct) Arterial Blood pO2 71.3 L (Temp corrected) Arterial Blood 28.3 H HCO3 Arterial Blood 0.1 Base Excess Arterial Blood 91.0 L Oxygen Saturation Mil Test ACCEPTAB Arterial Blood Gas Right Radial Puncture Site Arterial 1.6 Blood Carboxyhemog lobin Arterial Blood 0.4 Methemoglobin Blood Gas A-a O2 573.2 H Differential Oxyhemoglobin 89.2 L Percent Blood Gas 37.0 Temperature Blood Gas Modality MASK - NRB FiO2 100.[address] KINNEY Value Read Back Blood Gas Notified Kris Whom Blood Gas Notified 03/12/2019 10:09:07 Time AM Test 03/12/19 10:13 03/12/19 12:58 White Blood Count 15.8 #H Red Blood Count 2.84 L Hemoglobin 7.7 L Hematocrit 25.1 L Mean Corpuscular 88.4 Volume Mean Corpuscular 27.1 L Hemoglobin Mean Corpuscular 30.7 L Hemoglobin Concent Red Cell 16.2 H Distribution Width Platelet Count 391 # Mean Platelet 11.5 H Volume Immature 3.700 H Granulocytes % Neutrophils % Segmented 67 Neutrophils % (Manual) Band Neutrophils % 3 (Manual) Lymphocytes % Lymphocytes % 12 L (Manual) Reactive 1 H Lymphocytes % (Manual) Monocytes % Monocytes % 11 (Manual) Eosinophils % Eosinophils % 2 (Manual) Basophils % Basophils % 1 (Manual) Metamyelocytes % 1 H (manual) Myelocytes % 2 H (Manual) Nucleated Red 4 H Blood Cells % Immature 0.580 H Granulocytes # Neutrophils # Neutrophils # 10.6 H (Manual) Band Neutrophils # 0.4 Lymphocytes 1.8 (Manual) Lymphocytes # Reactive 0.1 H Lymphocytes # Monocytes # Monocytes # 1.7 H (Manual) Eosinophils # Basophils # Basophils # 0.1 H (Manual) Metamyelocytes # 0.1 H Myelocytes # 0.3 H Nucleated Red Blood Cells # Platelet Estimate NORMAL Polychromasia 1+ Hypochromasia 1+ Poikilocytosis 1+ Anisocytosis 1+ Microcytosis 1+ Sodium Level 135 Potassium Level 4.5 Chloride Level 100 Carbon Dioxide 26 Level Anion Gap 9 Blood Urea 28 H Nitrogen Creatinine 1.32 H Est Glomerular Filtrat Rate mL/min Glucose Level 246 #H Calcium Level 8.6 Magnesium Level 2.3 Total Bilirubin 0.5 Direct Bilirubin 0.00 Indirect Bilirubin 0.5 Aspartate Amino 33 Transf (AST/SGOT) Alanine 16 Aminotransferase ( ALT/SGPT) Alkaline 217 H Phosphatase Total Protein 6.8 Albumin 3.0 L Globulin 3.80 H Albumin/Globulin 0.78 Ratio Bedside Glucose 216 Medications Medication Current Medications IV Flush (NS 3 ml) 3 ml PER PROTOCOL IV ; Start 02/19/19 at 03:30 Lorazepam (Ativan) 0.5 mg Q8H PRN GTB .ANXIETY Last administered on 03/06/19 15:04; Admin Dose 0.5 MG; Start 02/19/19 at 03:30 Ondansetron HCl (Zofran Inj) 4 mg Q6H PRN IV NAUSEA/VOMITING; Start 02/19/19 at 03:30 Acetaminophen (Tylenol Tab) 325 mg Q4H PRN GTB FOR FEVER 100AND ABOVE Last administered on 02/20/19 20:13; Admin Dose 325 MG; Start 02/19/19 at 03:30 Acetaminophen (Tylenol Tab) 650 mg Q6H PRN GTB PAIN LEVEL 1-10/10 Last administered on 03/11/19 12:12; Admin Dose 650 MG; Start 02/19/19 at 03:30 Amlodipine Besylate (Norvasc) 5 mg BID GTB Last administered on 03/11/19 18:28; Admin Dose 5 MG; Start 02/19/19 at 09:00 Ascorbic Acid (Vitamin C) 500 mg DAILY GTB Last administered on 03/11/19 18:29; Admin Dose 500 MG; Start 02/19/19 at 09:00 Aspirin (Aspirin) 81 mg DAILY GTB Last administered on 02/26/19 10:20; Admin Dose 81 MG; Start 02/19/19 at 09:00; Status Hold Atorvastatin Calcium (Lipitor) 40 mg QHS GTB Last administered on 03/11/19 20:25; Admin Dose 40 MG; Start 02/19/19 at 21:00 Folic Acid (Folic Acid) 1 mg DAILY GTB Last administered on 03/11/19 18:29; Admin Dose 1 MG; Start 02/19/19 at 09:00 Hydralazine HCl (Apresoline) 25 mg Q8 GTB Last administered on 03/12/19 13:24; Admin Dose 25 MG; Start 02/19/19 at 06:00 Linagliptin (Tradjenta) 5 mg DAILY GTB Last administered on 03/11/19 18:29; Admin Dose 5 MG; Start 02/19/19 at 09:00 Lorazepam (Ativan) 0.5 mg HS PRN GTB ANXIETY Last administered on 03/11/19 20:24; Admin Dose 0.5 MG; Start 02/19/19 at 03:30 Metoprolol Tartrate (Lopressor) 50 mg BID GTB Last administered on 03/11/19 18:28; Admin Dose 50 MG; Start 02/19/19 at 09:00 Ondansetron HCl (Zofran Tab) 4 mg Q4H PRN GTB NAUSEA AND/OR VOMITING; Start 02/19/19 at 03:30 Valproate Sodium (Depakene Liquid Cup) 250 mg Q8 GTB Last administered on 03/12/19 13:24; Admin Dose 250 MG; Start 02/19/19 at 06:00 Docusate Sodium (Colace Liquid Cup) 100 mg DAILY GTB Last administered on 03/11/19 18:29; Admin Dose 100 MG; Start 02/19/19 at 09:00 Docusate Sodium (Colace Liquid Cup) 100 mg Q12H PRN GTB CONSTIPATION; Start 02/19/19 at 04:00 Acetaminophen (Tylenol Tab) 650 mg Q6H PRN GTB .PAIN 1-3 OR TEMP Last administered on 03/09/19 10:13; Admin Dose 650 MG; Start 02/19/19 at 03:35 Mupirocin (Bactroban) 1 applic BID TOP Last administered on 03/11/19 20:35; Admin Dose 1 APPLIC; Start 02/22/19 at 14:00 Insulin Glargine (Lantus) 4 units DAILY@2000 SC Last administered on 03/11/19 20:30; Admin Dose 4 UNITS; Start 02/26/19 at 20:00 Epoetin Michael-epbx (Retacrit (Esrd)) 4,000 unit MoWeFr@1700 SC Last administered on 03/11/19 18:26; Admin Dose 4,000 UNIT; Start 02/28/19 at 17:00 Olanzapine (Zyprexa) 2.5 mg DAILY GTB Last administered on 03/11/19 18:29; Admin Dose 2.5 MG; Start 03/01/19 at 09:00 Lansoprazole (Prevacid) 30 mg BID@0600,1800 GTB Last administered on 03/12/19 05:20; Admin Dose 30 MG; Start 02/28/19 at 18:00 Ferrous Sulfate (Feosol Liquid Cup) 300 mg BID GTB Last administered on 03/11/19 18:27; Admin Dose 300 MG; Start 03/08/19 at 09:00 Heparin Sodium (Porcine) (Heparin (5000 Units/1ml)) 5,000 unit BID SC Last administered on 03/11/19 20:31; Admin Dose 5,000 UNIT; Start 03/10/19 at 21:00 Albuterol/ Ipratropium (Duoneb) 3 ml Q4H RESP THERAPY HHN Last administered on 03/12/19 12:30; Admin Dose 3 ML; Start 03/12/19 at 10:00 Albuterol/ Ipratropium (Duoneb) 3 ml Q2H RESP THERAPY PRN HHN SHORTNESS OF BREATH; Start 03/12/19 at 10:00 Meropenem/Sodium Chloride 50 ml @ 100 mls/hr Q24H IVPB Last administered on 03/12/19 13:23; Admin Dose 100 MLS/HR; Start 03/12/19 at 14:00 CHRISS WELCH MD March 12, 2019 15:50
[2019-03-12] MEDS: INSULIN GLARGINE [LANTus] (100 UNITS/ML) SYG SC SCH (20:00)
[2019-03-12] MEDS: ATORVASTATIN 40 MG TAB GTB SCH (20:28)
[2019-03-13] VITALS (23 sets, daily range): BP systolic 116–160; BP diastolic 47–77; PULSE 64–108; RESP 16–24
[2019-03-13] MEDS: ALBUTEROL/IPRATROPIUM (NEB) 3 ML AMP HHN SCH ×6 (01:14→21:11)
[2019-03-13] MEDS: VALPROIC ACID LIQUID CUP 250 MG/5 ML CUP GTB SCH ×3 (05:04→22:08)
[2019-03-13] MEDS: LANSOPRAZOLE 30 MG CAP GTB SCH ×2 (05:04→17:11)
[2019-03-13] MEDS: FERROUS SULFATE 60 MG/ML 5ML CUP GTB SCH ×2 (09:00→20:18)
[2019-03-13] MEDS: LINAGLIPTIN 5 MG TABLET GTB SCH (09:00)
[2019-03-13] MEDS: AMLODIPINE 5 MG TAB GTB SCH ×2 (09:00→20:19)
[2019-03-13] MEDS: METOPROLOL 50 MG TAB GTB SCH ×2 (09:00→20:19)
--- NOTE | 2019-03-13 13:20 | CONS ---
Assessment/Plan Assessment/Plan Hospital Course (Demo Recall) 1. Fevers, likely secondary to urinary tract infection, now bld cx positive gram + Enterococcus 2. End-stage renal disease on hemodialysis. 3. Urinary tract infection. 4. Hypertension. 5. Dementia. 6. Diabetes mellitus type II. 7. Diastolic heart failure. 8. Moderate protein energy malnutrition with cachexia. 9. Osteoarthritis. 10. GT status 11. Anemia of chronic disease 12. Metabolic acidosis Assessment/Plan (Daily) -c/w HD, MWFR, -D5 W 30 cc while NPO for clogged G tube -a/b per ID, repeat cx neg so far -strict I and O -Left Chest Perm cath functioning. -c/w epoetin 3 times a week Consultation Date/Type/Reason Admit Date/Time Feb 19, 2019 at 01:01 Initial Consult Date 02/19/2019 Type of Consult nephrology Requesting Provider: JILLIAN HOLLAND MD Date/Time of Note DATE: 03/13/19 TIME: 13:19 24 HR Interval Summary Constitutional: disoriented Exam/Review of Systems Exam Vitals Vital Signs Date Temp Pulse Resp B/P (MAP) Pulse Ox O2 O2 Flow FiO2 Time Delivery Rate 03/13/19 93 12:01 03/13/19 97.7 16 123/60 99 11:52 (81) 03/13/19 4.0 09:00 03/13/19 Nasal 08:00 Cannula 03/13/19 40 07:45 Intake and Output 03/12/19 03/12/19 03/13/19 1515:00 23:00 07:00 IntakeIntake Total 0 ml OutputOutput Total 4800 ml BalanceBalance -4800 ml Exam left chest Perm cath Head: normocephalic Neck: supple Respiratory: diminished breath sounds Cardiovascular: regular rate and rhythm Gastrointestinal: soft, other (G tube clogged) Musculoskeletal: muscle weakness Results Result Diagram: 03/12/19 1013 03/12/19 1013 Results 24hrs Laboratory Tests Test 03/12/19 16:52 03/12/19 20:27 03/13/19 00:32 03/13/19 04:34 Bedside Glucose 109 102 118 126 Test 03/13/19 11:38 Bedside Glucose 109 Medications Medication Current Medications IV Flush (NS 3 ml) 3 ml PER PROTOCOL IV ; Start 02/19/19 at 03:30 Lorazepam (Ativan) 0.5 mg Q8H PRN GTB .ANXIETY Last administered on 03/06/19 15:04; Admin Dose 0.5 MG; Start 02/19/19 at 03:30 Ondansetron HCl (Zofran Inj) 4 mg Q6H PRN IV NAUSEA/VOMITING; Start 02/19/19 at 03:30 Acetaminophen (Tylenol Tab) 325 mg Q4H PRN GTB FOR FEVER 100AND ABOVE Last administered on 02/20/19 20:13; Admin Dose 325 MG; Start 02/19/19 at 03:30 Acetaminophen (Tylenol Tab) 650 mg Q6H PRN GTB PAIN LEVEL 1-10/10 Last administered on 03/11/19 12:12; Admin Dose 650 MG; Start 02/19/19 at 03:30 Amlodipine Besylate (Norvasc) 5 mg BID GTB Last administered on 03/11/19 18:28; Admin Dose 5 MG; Start 02/19/19 at 09:00 Ascorbic Acid (Vitamin C) 500 mg DAILY GTB Last administered on 03/11/19 18:29; Admin Dose 500 MG; Start 02/19/19 at 09:00 Aspirin (Aspirin) 81 mg DAILY GTB Last administered on 02/26/19 10:20; Admin Dose 81 MG; Start 02/19/19 at 09:00; Status Hold Atorvastatin Calcium (Lipitor) 40 mg QHS GTB Last administered on 03/11/19 20:25; Admin Dose 40 MG; Start 02/19/19 at 21:00 Folic Acid (Folic Acid) 1 mg DAILY GTB Last administered on 03/11/19 18:29; Admin Dose 1 MG; Start 02/19/19 at 09:00 Hydralazine HCl (Apresoline) 25 mg Q8 GTB Last administered on 03/12/19 05:21; Admin Dose 25 MG; Start 02/19/19 at 06:00 Linagliptin (Tradjenta) 5 mg DAILY GTB Last administered on 03/11/19 18:29; Admin Dose 5 MG; Start 02/19/19 at 09:00 Lorazepam (Ativan) 0.5 mg HS PRN GTB ANXIETY Last administered on 03/11/19 20:24; Admin Dose 0.5 MG; Start 02/19/19 at 03:30 Metoprolol Tartrate (Lopressor) 50 mg BID GTB Last administered on 03/11/19 18:28; Admin Dose 50 MG; Start 02/19/19 at 09:00 Ondansetron HCl (Zofran Tab) 4 mg Q4H PRN GTB NAUSEA AND/OR VOMITING; Start 02/19/19 at 03:30 Valproate Sodium (Depakene Liquid Cup) 250 mg Q8 GTB Last administered on 03/12/19 05:20; Admin Dose 250 MG; Start 02/19/19 at 06:00 Docusate Sodium (Colace Liquid Cup) 100 mg DAILY GTB Last administered on 03/11/19 18:29; Admin Dose 100 MG; Start 02/19/19 at 09:00 Docusate Sodium (Colace Liquid Cup) 100 mg Q12H PRN GTB CONSTIPATION; Start 02/19/19 at 04:00 Acetaminophen (Tylenol Tab) 650 mg Q6H PRN GTB .PAIN 1-3 OR TEMP Last administered on 03/09/19 10:13; Admin Dose 650 MG; Start 02/19/19 at 03:35 Mupirocin (Bactroban) 1 applic BID TOP Last administered on 03/11/19 20:35; Admin Dose 1 APPLIC; Start 02/22/19 at 14:00 Insulin Glargine (Lantus) 4 units DAILY@2000 SC Last administered on 03/11/19 20:30; Admin Dose 4 UNITS; Start 02/26/19 at 20:00 Epoetin Michael-epbx (Retacrit (Esrd)) 4,000 unit MoWeFr@1700 SC Last administered on 03/11/19 18:26; Admin Dose 4,000 UNIT; Start 02/28/19 at 17:00 Olanzapine (Zyprexa) 2.5 mg DAILY GTB Last administered on 03/11/19 18:29; Admin Dose 2.5 MG; Start 03/01/19 at 09:00 Lansoprazole (Prevacid) 30 mg BID@0600,1800 GTB Last administered on 03/12/19 05:20; Admin Dose 30 MG; Start 02/28/19 at 18:00 Ferrous Sulfate (Feosol Liquid Cup) 300 mg BID GTB Last administered on 03/11/19 18:27; Admin Dose 300 MG; Start 03/08/19 at 09:00 Heparin Sodium (Porcine) (Heparin (5000 Units/1ml)) 5,000 unit BID SC Last administered on 03/11/19 20:31; Admin Dose 5,000 UNIT; Start 03/10/19 at 21:00 Albuterol/ Ipratropium (Duoneb) 3 ml Q4H RESP THERAPY HHN Last administered on 03/13/19 12:46; Admin Dose 3 ML; Start 03/12/19 at 10:00 Albuterol/ Ipratropium (Duoneb) 3 ml Q2H RESP THERAPY PRN HHN SHORTNESS OF BREATH; Start 03/12/19 at 10:00 Meropenem/Sodium Chloride 50 ml @ 100 mls/hr Q24H IVPB Last administered on 03/12/19 13:23; Admin Dose 100 MLS/HR; Start 03/12/19 at 14:00 FLAVIO CLAYTON March 13, 2019 13:20
[2019-03-13] MEDS: DEXTROSE 5%-0.9% NACL 1,000 ML IV SCH (14:30)
--- NOTE | 2019-03-13 15:06 | PN ---
DATE: 03/13/2019 The patient seen. Patient is hypoxic off 88, attempted to be placed on oxygen in restraints du e to risk of pulling out her oxygen saturation IV lines. SUBJECTIVE: The patient is now back to baseline. She is alert. Unfortunately, patient's G-tube is malfunctioning as GI was informed. PHYSICAL EXAMINATION: VITAL SIGNS: Temperature 97.7, pulse 93, respirations 16, blood pressure 122/70, saturation 99% on 4 liters. GENERAL: The patient is in no acute distress. HEENT: Dry mucous membranes. Alert, confused. CARDIOVASCULAR: S1, S2. LUNGS: Decreased bilaterally. ABDOMEN: Soft. G-tube in place. EXTREMITIES: Upper extremity trace edema, right greater than left. LABORATORY DATA: No new labs today. Labs yesterday were reviewed. MEDICATIONS: 1. Merrem 1 gram IV q. 24 hours. 2. DuoNeb every 4 hours and p.r.n. 3. Heparin 5000 mEq b.i.d. 4. Ferrous sulfate 300 b.i.d. 5. Zyprexa 2.5 daily. 6. Prevacid 30 mg b.i.d. All these meds are not being given due to malfunctioning G-tube. The patient's other meds were revie thu. ASSESSMENT AND PLAN: This is an 83-year-old unfortunate [place] female with end-stage renal disease , vascular dementia, hypertension, diabetes mellitus, presented with fever, was found to have UTI marta teremia, line sepsis, status post Perm-A-Cath exchange. 1. Respiratory. Yesterday went into a rapid response due to respiratory failure and hypoxia, increa sed encephalopathy and hypercapnic respiratory failure due to increased lethargy, now awake. Continu e p.r.n. BiPAP. O2 support is being provided. Continue empiric antibiotic treatment with Merrem for possible aspiration. 2. Cardiovascular. On heparin for DVT prophylaxis if not contraindicated by GI. Vitals are otherwi se stable. 3. End-stage renal disease. 4. Dialysis planned for tomorrow. Continue to monitor electrolytes. 4. Anemia. Transfuse p.r.n. Continue Epogen and iron supplements. 5. Status post treatment for Dominique glabrata urinary tract infection with Cancidas. 6. Diabetes mellitus. Continue above insulin regimen. Titrate up as needed. 7. Psychiatric disorder, on Zyprexa. 8. Malfunctioning G-tube. New G-tube to be replaced and then we can resume oral diet and feeding. Overall, prognosis guarded. Family is aware of patient's overall condition. I left the daughter a m essage yesterday, but overall the patient with prolonged hospitalization. She has been on an almost a continuous basis for the past 4 or 5 months in the hospital. Again, long-term prognosis is poor. We will follow. Hospice is definitely for this patient. Dictated By: DYLON HULL/MADAN Conf#: [id number] DID#: [id number]
[2019-03-13] MEDS: FOLIC ACID 1 MG TAB GTB SCH (15:29)
[2019-03-13] MEDS: ASCORBIC ACID 500 MG TAB GTB SCH (15:29)
[2019-03-13] MEDS: OLANZAPINE 2.5 MG TAB GTB SCH (15:30)
[2019-03-13] MEDS: MEROPENEM 500MG/50 ML (PMX) 50 ML IVPB SCH (15:30)
[2019-03-13] MEDS: DOCUSATE SODIUM 10 MG/ML (10ML CUP) GTB SCH (15:30)
--- NOTE | 2019-03-13 15:48 | CONS ---
Assessment/Plan Assessment/Plan Assessment/Plan (Daily) Assessment/Plan Assessment/Plan Assessment/Plan (Daily) Assessment/Plan Hospital Course (Demo Recall) 83 yo female presented with severe anemia Interval hx: No acute changes. Per RN, no GI bleeding noted. hgb 7.7. Tolerating tf at 30cc/hr. 1. Severe anemia,acute on chronic -GI bleed vs chronic disease -stable -retic 2.6, ferritin 4490, neg FOB twice 2. End-stage renal disease on dialysis. 3. Urinary tract infection. -positive yeast 4. Dysphagia, status post percutaneous endoscopic gastrostomy tube placement. 5. Hypertension. 6. Behavioral disorder. 7 clogged to G-tube PLAN: Monitor HH Hold all anti coagulants PPI BID If GI bleeding, noted positive FOB, we will consider push endoscopy So for no acute bleeding or occult bleeding noted Patient is tolerating feeding no nausea no vomiting no evidence of gastroparesis Staff has been advised to declog the G-tube with cola. If it does not work then will change the G-tube G-tube change bedside 20 Kyr[place]z was used Consultation Date/Type/Reason Admit Date/Time Feb 19, 2019 at 01:01 Initial Consult Date 02/23/19 Requesting Provider: JILLIAN HOLLAND MD Date/Time of Note DATE: 03/13/19 TIME: 15:47 24 HR Interval Summary Free Text/Dictation G-tube are completely clogged Exam/Review of Systems Exam Vitals Vital Signs Date Temp Pulse Resp B/P (MAP) Pulse Ox O2 O2 Flow FiO2 Time Delivery Rate 03/13/19 3.0 13:04 03/13/19 93 12:01 03/13/19 97.7 16 123/60 99 11:52 (81) 03/13/19 Nasal 08:00 Cannula 03/13/19 40 07:45 Intake and Output 03/12/19 03/12/19 03/13/19 1515:00 23:00 07:00 IntakeIntake Total 0 ml OutputOutput Total 4800 ml BalanceBalance -4800 ml Constitutional: alert, oriented, well developed Psych: no complaints, nl mood/affect Head: normocephalic, atraumatic Eyes: nl conjunctiva, EOMI, nl lids, nl sclera, PERRL ENMT: nl external ears & nose, nl lips & teeth, nl nasal mucosa & septum Neck: supple, non-tender Respiratory: clear to auscultation, normal air movement Cardiovascular: regular rate and rhythm, nl pulses Gastrointestinal: soft, nl liver, spleen, non-tender Musculoskeletal: nl extremities to inspection, nl gait and stance Extremities: normal pulses 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: SALES SUPPORT ADVISOR II-XII intact, nl mental status, nl speech, nl strength Skin: nl turgor; No rash or lesions Lymph: nl lymph nodes Results Result Diagram: 03/12/19 1013 03/12/19 1013 Results 24hrs Laboratory Tests Test 03/12/19 16:52 03/12/19 20:27 03/13/19 00:32 03/13/19 04:34 Bedside Glucose 109 102 118 126 Test 03/13/19 11:38 Bedside Glucose 109 Medications Medication Current Medications IV Flush (NS 3 ml) 3 ml PER PROTOCOL IV ; Start 02/19/19 at 03:30 Lorazepam (Ativan) 0.5 mg Q8H PRN GTB .ANXIETY Last administered on 03/06/19 15:04; Admin Dose 0.5 MG; Start 02/19/19 at 03:30 Ondansetron HCl (Zofran Inj) 4 mg Q6H PRN IV NAUSEA/VOMITING; Start 02/19/19 at 03:30 Acetaminophen (Tylenol Tab) 325 mg Q4H PRN GTB FOR FEVER 100AND ABOVE Last administered on 02/20/19 20:13; Admin Dose 325 MG; Start 02/19/19 at 03:30 Acetaminophen (Tylenol Tab) 650 mg Q6H PRN GTB PAIN LEVEL 1-10/10 Last administered on 03/11/19at 12:12; Admin Dose 650 MG; Start 02/19/19 at 03:30 Amlodipine Besylate (Norvasc) 5 mg BID GTB Last administered on 03/11/19 18:28; Admin Dose 5 MG; Start 02/19/19 at 09:00 Ascorbic Acid (Vitamin C) 500 mg DAILY GTB Last administered on 03/11/19 18:29; Admin Dose 500 MG; Start 02/19/19 at 09:00 Aspirin (Aspirin) 81 mg DAILY GTB Last administered on 02/26/19 10:20; Admin Dose 81 MG; Start 02/19/19 at 09:00; Status Hold Atorvastatin Calcium (Lipitor) 40 mg QHS GTB Last administered on 03/11/19 20:25; Admin Dose 40 MG; Start 02/19/19 at 21:00 Folic Acid (Folic Acid) 1 mg DAILY GTB Last administered on 03/11/19 18:29; Admin Dose 1 MG; Start 02/19/19 at 09:00 Hydralazine HCl (Apresoline) 25 mg Q8 GTB Last administered on 03/12/19 05:21; Admin Dose 25 MG; Start 02/19/19 at 06:00 Linagliptin (Tradjenta) 5 mg DAILY GTB Last administered on 03/11/19 18:29; Admin Dose 5 MG; Start 02/19/19 at 09:00 Lorazepam (Ativan) 0.5 mg HS PRN GTB ANXIETY Last administered on 03/11/19 20:24; Admin Dose 0.5 MG; Start 02/19/19 at 03:30 Metoprolol Tartrate (Lopressor) 50 mg BID GTB Last administered on 03/11/19 18:28; Admin Dose 50 MG; Start 02/19/19 at 09:00 Ondansetron HCl (Zofran Tab) 4 mg Q4H PRN GTB NAUSEA AND/OR VOMITING; Start 02/19/19 at 03:30 Valproate Sodium (Depakene Liquid Cup) 250 mg Q8 GTB Last administered on 03/12/19 05:20; Admin Dose 250 MG; Start 02/19/19 at 06:00 Docusate Sodium (Colace Liquid Cup) 100 mg DAILY GTB Last administered on 18:29; Admin Dose 100 MG; Start 02/19/19 at 09:00 Docusate Sodium (Colace Liquid Cup) 100 mg Q12H PRN GTB CONSTIPATION; Start 02/19/19 at 04:00 Acetaminophen (Tylenol Tab) 650 mg Q6H PRN GTB .PAIN 1-3 OR TEMP Last administered on 03/09/19 10:13; Admin Dose 650 MG; Start 02/19/19 at 03:35 Mupirocin (Bactroban) 1 applic BID TOP Last administered on 03/11/19 20:35; Admin Dose 1 APPLIC; Start 02/22/19 at 14:00 Insulin Glargine (Lantus) 4 units DAILY@2000 SC Last administered on 03/11/19 20:30; Admin Dose 4 UNITS; Start 02/26/19 at 20:00 Epoetin Michael-epbx (Retacrit (Esrd)) 4,000 unit MoWeFr@1700 SC Last administered on 03/11/19 18:26; Admin Dose 4,000 UNIT; Start 02/28/19 at 17:00 Olanzapine (Zyprexa) 2.5 mg DAILY GTB Last administered on 03/11/19 18:29; Admin Dose 2.5 MG; Start 03/01/19 at 09:00 Lansoprazole (Prevacid) 30 mg BID@0600,1800 GTB Last administered on 03/12/19 05:20; Admin Dose 30 MG; Start 02/28/19 at 18:00 Ferrous Sulfate (Feosol Liquid Cup) 300 mg BID GTB Last administered on 03/11/19 18:27; Admin Dose 300 MG; Start 03/08/19 at 09:00 Heparin Sodium (Porcine) (Heparin (5000 Units/1ml)) 5,000 unit BID SC Last administered on 03/11/19 20:31; Admin Dose 5,000 UNIT; Start 03/10/19 at 21:00 Albuterol/ Ipratropium (Duoneb) 3 ml Q4H RESP THERAPY HHN Last administered on 03/13/19 12:46; Admin Dose 3 ML; Start 03/12/19 at 10:00 Albuterol/ Ipratropium (Duoneb) 3 ml Q2H RESP THERAPY PRN HHN SHORTNESS OF BREATH; Start 03/12/19 at 10:00 Meropenem/Sodium Chloride 50 ml @ 100 mls/hr Q24H IVPB Last administered on 03/12/19 13:23; Admin Dose 100 MLS/HR; Start 03/12/19 at 14:00 Dextrose/Sodium Chloride 1,000 ml @ 40 mls/hr Q24H IV ; Start 03/13/19 at 14:30 CHRISS WELCH MD March 13, 2019 15:48
[2019-03-13] MEDS: HEPARIN 5,000 UNIT/1 ML VIAL SC SCH ×2 (16:06→20:50)
[2019-03-13] MEDS: MUPIROCIN 2% 22 GM OINT TOP SCH ×2 (16:07→21:00)
[2019-03-13] MEDS ORDERED: GLUCAGON 1 MG INJ IM PRN (16:30)
[2019-03-13] MEDS ORDERED: GLUCOSE GEL 15 GRAM TUBE PO PRN ×2 (16:30)
[2019-03-13] MEDS ORDERED: DEXTROSE 50% 50 ML SYRINGE IV PRN ×2 (16:30)
[2019-03-13] MEDS ORDERED: GLUCOSE GEL 15 GRAM TUBE BUCCAL PRN (16:30)
[2019-03-13] MEDS: ATORVASTATIN 40 MG TAB GTB SCH (20:18)
[2019-03-13] MEDS: INSULIN GLARGINE [LANTus] (100 UNITS/ML) SYG SC SCH (20:50)
[2019-03-14] VITALS (28 sets, daily range): BP systolic 121–173; BP diastolic 53–110; PULSE 83–105; RESP 16–26
[2019-03-14] MEDS: LORAZEPAM 0.5 MG TAB GTB PRN (01:15)
[2019-03-14] MEDS: ALBUTEROL/IPRATROPIUM (NEB) 3 ML AMP HHN SCH ×6 (01:46→20:20)
[2019-03-14] MEDS: VALPROIC ACID LIQUID CUP 250 MG/5 ML CUP GTB SCH ×3 (06:03→21:42)
[2019-03-14] MEDS: LANSOPRAZOLE 30 MG CAP GTB SCH ×2 (06:03→17:17)
--- NOTE | 2019-03-14 07:44 | PN ---
DATE: 03/11/2019 SUBJECTIVE: The patient is seen resting comfortably. The patient is awaiting dialysis today. No ac mohegan events. PHYSICAL EXAMINATION: VITAL SIGNS: The patient's vitals are stable. Temperature 97.8, pulse 94, respirations 17, blood pr essure 139/63, saturation 97% on room air. NECK: Supple. IJ in place. GENERAL: No acute distress. The patient is resting, pale. CARDIOVASCULAR: S1, S2, regular rate. LUNGS: Clear. ABDOMEN: Soft. G-tube in place. LABORATORY DATA: White count is now normal at 10.4, hemoglobin 7.9, hematocrit 25, platelet count 29 9, neutrophils 66%, eosinophils 12%. Chemistry: Sodium 134, potassium 4.0, chloride 102, bicarbonat e 24, BUN is 38, creatinine 0.79, glucose 137. Last glucose level 128 to 132. The patient's last bl ood cultures 03/02/2019 negative and urine culture on 03/02/2019 did show Dominique glabrata. MEDICATIONS: All reviewed, include: 1. Heparin 2. Ferrous sulfate. 3. Zyprexa. 4. Prevacid. 5. Epogen. 6. Lantus. 7. ____. 8. Lipitor. 9. Norvasc. 10. Vitamin C. 11. Folic acid. 12. ____ 13. Lopressor. 14. Colace. 15. Hydralazine. 16. Depakote. 17. Colace. 18. Tylenol. 19. Ativan. 20. Zofran p.r.n. ASSESSMENT AND PLAN: This is an 83-year-old very sick [place] female with history of end-stage renita l disease, vascular dementia, hypertension, diabetes mellitus who presented with fever, was found to have urinary tract infection, bacteremia, also status post Perm-A-Cath exchange due to line sepsis. The patient remains stable. 1. Respiratory. Continue O2 support, breathing comfortably today. Awaiting dialysis. 2. Cardiovascular. Vitals are stable. 3. End-stage renal disease. Dialysis every Thursday, Thursday, and Thursday for fluid removal. 4. The patient is on heparin for deep venous thrombosis prophylaxis as the patient is bedridden. 5. Anemia. Off aspirin due to risk of bleeding. Transfuse p.r.n. Continue Epogen. GI is followin g. 6. Infectious disease. The patient completed the course of Cancidas today. ID to follow. 7. clinical rn manager is assisting with placement. 8. Psychiatric. Continue Zyprexa. Mood appears to be more stable. 9. Dysphagia and G-tube feeding 30 mL an hour, tolerating it well with head elevation and aspiration precautions. 10. Diabetes mellitus. Continue above Lantus and sliding scale. 11. clinical rn manager to assist with placement. Dictated By: DYLON HULL/MADAN Conf#: [id number] DID#: [id number]
[2019-03-14] MEDS: MUPIROCIN 2% 22 GM OINT TOP SCH ×2 (09:25→20:29)
[2019-03-14] MEDS: LINAGLIPTIN 5 MG TABLET GTB SCH (09:28)
[2019-03-14] MEDS: DOCUSATE SODIUM 10 MG/ML (10ML CUP) GTB SCH (09:28)
[2019-03-14] MEDS: ASCORBIC ACID 500 MG TAB GTB SCH (09:28)
[2019-03-14] MEDS: HEPARIN 5,000 UNIT/1 ML VIAL SC SCH ×2 (09:28→20:39)
[2019-03-14] MEDS: OLANZAPINE 2.5 MG TAB GTB SCH (09:28)
[2019-03-14] MEDS: FOLIC ACID 1 MG TAB GTB SCH (09:28)
[2019-03-14] MEDS: FERROUS SULFATE 60 MG/ML 5ML CUP GTB SCH ×2 (09:28→20:28)
[2019-03-14] MEDS: AMLODIPINE 5 MG TAB GTB SCH ×2 (09:29→20:29)
[2019-03-14] MEDS: METOPROLOL 50 MG TAB GTB SCH ×2 (09:29→20:29)
--- NOTE | 2019-03-14 12:11 | CONS ---
Assessment/Plan Assessment/Plan Assessment/Plan (Daily) essment/Plan Hospital Course (Demo Recall) 1. Fevers, likely secondary to urinary tract infection, now bld cx positive gram + Enterococcus 2. End-stage renal disease on hemodialysis. 3. Urinary tract infection. 4. Hypertension. 5. Dementia. 6. Diabetes mellitus type II. 7. Diastolic heart failure. 8. Moderate protein energy malnutrition with cachexia. 9. Osteoarthritis. 10. GT status 11. Anemia of chronic disease 12. REsp failure, On BIPAP Assessment/Plan (Daily) -c/w HD, MWFR, hd today - 1 unit prbc today -c/w epoetin 3 times a week Consultation Date/Type/Reason Admit Date/Time Feb 19, 2019 at 01:01 Initial Consult Date Requesting Provider: JILLIAN HOLLAND MD Date/Time of Note DATE: 03/14/19 TIME: 12:10 24 HR Interval Summary Free Text/Dictation much more awake today Exam/Review of Systems Exam Vitals Vital Signs Date Temp Pulse Resp B/P (MAP) Pulse Ox O2 O2 Flow FiO2 Time Delivery Rate 03/14/19 98.3 20 168/85 96 11:52 (112) 03/14/19 87 Nasal 3.0 10:00 Cannula 03/13/19 40 07:45 Intake and Output 03/13/19 03/13/19 03/14/19 1515:00 23:00 07:00 IntakeIntake Total 185 ml 730 ml BalanceBalance 185 ml 730 ml Exam Exam left chest Perm cath Head: normocephalic, pt awake,alert Neck: supple Respiratory: diminished breath sounds Cardiovascular: regular rate and rhythm Gastrointestinal: soft, other (G tube clogged) Musculoskeletal: muscle weakness Results Result Diagram: 03/14/19 0442 03/14/192 Results 24hrs Laboratory Tests Test 03/13/19 17:08 03/13/19 20:14 03/14/19 03:11 03/14/19 04:42 Bedside Glucose 122 158 175 White Blood Count 11.0 #H Red Blood Count 2.57 L Hemoglobin 7.0 L Hematocrit 22.2 L Mean Corpuscular Volume 86.4 Mean Corpuscular 27.2 L Hemoglobin Mean Corpuscular 31.5 L Hemoglobin Concent Red Cell Distribution 16.4 H Width Platelet Count 283 # Mean Platelet Volume 11.0 H Immature Granulocytes % 1.900 H Neutrophils % 77.9 H Lymphocytes % 7.2 L Monocytes % 9.6 Eosinophils % 2.9 Basophils % 0.5 Nucleated Red Blood 1.4 H Cells % Immature Granulocytes # 0.210 H Neutrophils # 8.6 H Lymphocytes # 0.8 Monocytes # 1.1 H Eosinophils # 0.3 Basophils # 0.1 Nucleated Red Blood 0.2 H Cells # Sodium Level 137 Potassium Level 3.9 Chloride Level 103 Carbon Dioxide Level 28 Anion Gap 6 Blood Urea Nitrogen 43 #H Creatinine 1.82 H Est Glomerular Filtrat Rate mL/min Glucose Level 144 # Calcium Level 8.4 Phosphorus Level 3.2 Magnesium Level 2.2 Test 03/14/19 09:24 Bedside Glucose 150 Medications Medication Current Medications IV Flush (NS 3 ml) 3 ml PER PROTOCOL IV ; Start 02/19/19 at 03:30 Lorazepam (Ativan) 0.5 mg Q8H PRN GTB .ANXIETY Last administered on 03/14/19 01:15; Admin Dose 0.5 MG; Start 02/19/19 at 03:30 Ondansetron HCl (Zofran Inj) 4 mg Q6H PRN IV NAUSEA/VOMITING; Start 02/19/19 at 03:30 Acetaminophen (Tylenol Tab) 325 mg Q4H PRN GTB FOR FEVER 100AND ABOVE Last administered on 02/20/19 20:13; Admin Dose 325 MG; Start 02/19/19 at 03:30 Acetaminophen (Tylenol Tab) 650 mg Q6H PRN GTB PAIN LEVEL 1-10/10 Last administered on 03/11/19 12:12; Admin Dose 650 MG; Start 02/19/19 at 03:30 Amlodipine Besylate (Norvasc) 5 mg BID GTB Last administered on 03/14/19 09:29; Admin Dose 5 MG; Start 02/19/19 at 09:00 Ascorbic Acid (Vitamin C) 500 mg DAILY GTB Last administered on 03/14/19 09:28; Admin Dose 500 MG; Start 02/19/19 at 09:00 Aspirin (Aspirin) 81 mg DAILY GTB Last administered on 02/26/19 10:20; Admin Dose 81 MG; Start 02/19/19 at 09:00; Status Hold Atorvastatin Calcium (Lipitor) 40 mg QHS GTB Last administered on 03/13/19 20:18; Admin Dose 40 MG; Start 02/19/19 at 21:00 Folic Acid (Folic Acid) 1 mg DAILY GTB Last administered on 03/14/19 09:28; Admin Dose 1 MG; Start 02/19/19 at 09:00 Hydralazine HCl (Apresoline) 25 mg Q8 GTB Last administered on 03/14/19 06:04; Admin Dose 25 MG; Start 02/19/19 at 06:00 Linagliptin (Tradjenta) 5 mg DAILY GTB Last administered on 03/14/19 09:28; Admin Dose 5 MG; Start 02/19/19 at 09:00 Lorazepam (Ativan) 0.5 mg HS PRN GTB ANXIETY Last administered on 03/11/19 20:24; Admin Dose 0.5 MG; Start 02/19/19 at 03:30 Metoprolol Tartrate (Lopressor) 50 mg BID GTB Last administered on 03/14/19 09:29; Admin Dose 50 MG; Start 02/19/19 at 09:00 Ondansetron HCl (Zofran Tab) 4 mg Q4H PRN GTB NAUSEA AND/OR VOMITING; Start 02/19/19 at 03:30 Valproate Sodium (Depakene Liquid Cup) 250 mg Q8 GTB Last administered on 03/14/19 06:03; Admin Dose 250 MG; Start 02/19/19 at 06:00 Docusate Sodium (Colace Liquid Cup) 100 mg DAILY GTB Last administered on 03/14/19 09:28; Admin Dose 100 MG; Start 02/19/19 at 09:00 Docusate Sodium (Colace Liquid Cup) 100 mg Q12H PRN GTB CONSTIPATION; Start 02/19/19 at 04:00 Acetaminophen (Tylenol Tab) 650 mg Q6H PRN GTB .PAIN 1-3 OR TEMP Last administered on 03/09/19 10:13; Admin Dose 650 MG; Start 02/19/19 at 03:35 Mupirocin (Bactroban) 1 applic BID TOP Last administered on 03/14/19 09:25; Admin Dose 1 APPLIC; Start 02/22/19 at 14:00 Insulin Glargine (Lantus) 4 units DAILY@2000 SC Last administered on 03/13/19at 20:50; Admin Dose 4 UNITS; Start 02/26/19 at 20:00 Epoetin Michael-epbx (Retacrit (Esrd)) 4,000 unit MoWeFr@1700 SC Last administered on 03/11/19 18:26; Admin Dose 4,000 UNIT; Start 02/28/19 at 17:00 Olanzapine (Zyprexa) 2.5 mg DAILY GTB Last administered on 03/14/19 09:28; Admin Dose 2.5 MG; Start 03/01/19 at 09:00 Lansoprazole (Prevacid) 30 mg BID@0600,1800 GTB Last administered on 03/14/19 06:03; Admin Dose 30 MG; Start 02/28/19 at 18:00 Ferrous Sulfate (Feosol Liquid Cup) 300 mg BID GTB Last administered on 03/14/19 at 09:28; Admin Dose 300 MG; Start 03/08/19 at 09:00 Heparin Sodium (Porcine) (Heparin (5000 Units/1ml)) 5,000 unit BID SC Last administered on 03/14/19at 09:28; Admin Dose 5,000 UNIT; Start 03/10/19 at 21:00 Albuterol/ Ipratropium (Duoneb) 3 ml Q4H RESP THERAPY HHN Last administered on 03/14/19at 09:34; Admin Dose 3 ML; Start 03/12/19 at 10:00 Albuterol/ Ipratropium (Duoneb) 3 ml Q2H RESP THERAPY PRN HHN SHORTNESS OF BREATH; Start 03/12/19 at 10:00 Meropenem/Sodium Chloride 50 ml @ 100 mls/hr Q24H IVPB Last administered on 03/13/19at 15:30; Admin Dose 100 MLS/HR; Start 03/12/19 at 14:00 Dextrose/Sodium Chloride 1,000 ml @ 40 mls/hr Q24H IV ; Start 03/13/19 at 14:30 Miscellaneous Information 1 ea NOTE XX ; Start 03/13/19 at 16:30 Glucose (Glutose) 15 gm Q15M PRN PO DECREASED GLUCOSE; Start 03/13/19 at 16:30 Glucose (Glutose) 22.5 gm Q15M PRN PO DECREASED GLUCOSE; Start 03/13/19 at 16:30 Dextrose (D50w Syringe) 25 ml Q15M PRN IV DECREASED GLUCOSE; Start 03/13/19 at 16:30 Dextrose (D50w Syringe) 50 ml Q15M PRN IV DECREASED GLUCOSE; Start 03/13/19 at 16:30 Glucagon (Glucagen) 1 mg Q15M PRN IM DECREASED GLUCOSE; Start 03/13/19 at 16:30 Glucose (Glutose) 15 gm Q15M PRN BUCCAL DECREASED GLUCOSE; Start 03/13/19 at 16:30 JOSE RAUL ANDREWS MD March 14, 2019 12:11
[2019-03-14] MEDS: DEXTROSE 5%-0.9% NACL 1,000 ML IV SCH (13:42)
--- NOTE | 2019-03-14 13:48 | CONS ---
Assessment/Plan Assessment/Plan Hospital Course (Demo Recall) Awake confused sounds congested. No fevers overnight. WBC 11 platelets 283 neutrophils 77.9 Antimicrobials: Meropenem Indwelling: Left subclavian permacath, PEG Microbiology: Urine culture on admission grew Dominique glabrata, blood culture grew Enterococcus Chest x-ray on admission revealed no definite evidence of pneumonia or CHF Physical examination: This is a chronically ill-appearing wasted elderly woman who is in no distress. Head atraumatic normocephalic. Neck is supple. Chest rise symmetrical patient is mildly tachypneic with expiratory wheezes. Heart: S1-S2, tachycardic. Abdomen soft bowel sounds present. Extremities without cyanosis edema. Assessment: 1. Acute hypoxemia possibly combination of aspiration and fluid overload 2. Status post recurrent UTI and bacteremia 4. End-stage renal disease, hemodialysis dependent 5. Anemia 6. 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 Plan: Patient is scheduled for hemodialysis today, continue antibiotics, repeat chest x-ray tomorrow Consultation Date/Type/Reason Admit Date/Time Feb 19, 2019 at 01:01 Initial Consult Date Type of Consult id Requesting Provider: JILLIAN HOLLAND MD Date/Time of Note DATE: 03/14/19 TIME: 13:47 Exam/Review of Systems Exam Vitals Vital Signs Date Temp Pulse Resp B/P (MAP) Pulse Ox O2 O2 Flow FiO2 Time Delivery Rate 03/14/19 96 20 97 Nasal 3.0 13:03 Cannula 03/14/19 98.3 168/85 11:52 (112) 03/13/19 40 07:45 Intake and Output 03/13/19 03/13/19 03/14/19 1515:00 23:00 07:00 IntakeIntake Total 185 ml 730 ml BalanceBalance 185 ml 730 ml Results Result Diagram: 03/14/19 0442 03/14/19 0442 Results 24hrs Laboratory Tests Test 03/13/19 17:08 03/13/19 20:14 03/14/19 03:11 03/14/19 04:42 Bedside Glucose 122 158 175 White Blood Count 11.0 #H Red Blood Count 2.57 L Hemoglobin 7.0 L Hematocrit 22.2 L Mean Corpuscular Volume 86.4 Mean Corpuscular 27.2 L Hemoglobin Mean Corpuscular 31.5 L Hemoglobin Concent Red Cell Distribution 16.4 H Width Platelet Count 283 # Mean Platelet Volume 11.0 H Immature Granulocytes % 1.900 H Neutrophils % 77.9 H Lymphocytes % 7.2 L Monocytes % 9.6 Eosinophils % 2.9 Basophils % 0.5 Nucleated Red Blood 1.4 H Cells % Immature Granulocytes # 0.210 H Neutrophils # 8.6 H Lymphocytes # 0.8 Monocytes # 1.1 H Eosinophils # 0.3 Basophils # 0.1 Nucleated Red Blood 0.2 H Cells # Sodium Level 137 Potassium Level 3.9 Chloride Level 103 Carbon Dioxide Level 28 Anion Gap 6 Blood Urea Nitrogen 43 #H Creatinine 1.82 H Est Glomerular Filtrat Rate mL/min Glucose Level 144 # Calcium Level 8.4 Phosphorus Level 3.2 Magnesium Level 2.2 Test 03/14/19 09:24 Bedside Glucose 150 Medications Medication Current Medications IV Flush (NS 3 ml) 3 ml PER PROTOCOL IV ; Start 02/19/19 at 03:30 Lorazepam (Ativan) 0.5 mg Q8H PRN GTB .ANXIETY Last administered on 03/14/19 01:15; Admin Dose 0.5 MG; Start 02/19/19 at 03:30 Ondansetron HCl (Zofran Inj) 4 mg Q6H PRN IV NAUSEA/VOMITING; Start 02/19/19 at 03:30 Acetaminophen (Tylenol Tab) 325 mg Q4H PRN GTB FOR FEVER 100AND ABOVE Last administered on 02/20/19 20:13; Admin Dose 325 MG; Start 02/19/19 at 03:30 Acetaminophen (Tylenol Tab) 650 mg Q6H PRN GTB PAIN LEVEL 1-10/10 Last administered on 03/11/19 12:12; Admin Dose 650 MG; Start 02/19/19 at 03:30 Amlodipine Besylate (Norvasc) 5 mg BID GTB Last administered on 03/14/19 09:29; Admin Dose 5 MG; Start 02/19/19 at 09:00 Ascorbic Acid (Vitamin C) 500 mg DAILY GTB Last administered on 03/14/19 09:28; Admin Dose 500 MG; Start 02/19/19 at 09:00 Aspirin (Aspirin) 81 mg DAILY GTB Last administered on 02/26/19 10:20; Admin Dose 81 MG; Start 02/19/19 at 09:00; Status Hold Atorvastatin Calcium (Lipitor) 40 mg QHS GTB Last administered on 03/13/19 20 :18; Admin Dose 40 MG; Start 02/19/19 at 21:00 Folic Acid (Folic Acid) 1 mg DAILY GTB Last administered on 03/14/19 09:28; Admin Dose 1 MG; Start 02/19/19 at 09:00 Hydralazine HCl (Apresoline) 25 mg Q8 GTB Last administered on 03/14/19 06:04; Admin Dose 25 MG; Start 02/19/19 at 06:00 Linagliptin (Tradjenta) 5 mg DAILY GTB Last administered on 03/14/19 09:28; Admin Dose 5 MG; Start 02/19/19 at 09:00 Lorazepam (Ativan) 0.5 mg HS PRN GTB ANXIETY Last administered on 03/11/19 20:24; Admin Dose 0.5 MG; Start 02/19/19 at 03:30 Metoprolol Tartrate (Lopressor) 50 mg BID GTB Last administered on 03/14/19 09:29; Admin Dose 50 MG; Start 02/19/19 at 09:00 Ondansetron HCl (Zofran Tab) 4 mg Q4H PRN GTB NAUSEA AND/OR VOMITING; Start 02/19/19 at 03:30 Valproate Sodium (Depakene Liquid Cup) 250 mg Q8 GTB Last administered on 03/14/19 06:03; Admin Dose 250 MG; Start 02/19/19 at 06:00 Docusate Sodium (Colace Liquid Cup) 100 mg DAILY GTB Last administered on 03/14/19 09:28; Admin Dose 100 MG; Start 02/19/19 at 09:00 Docusate Sodium (Colace Liquid Cup) 100 mg Q12H PRN GTB CONSTIPATION; Start at 04:00 Acetaminophen (Tylenol Tab) 650 mg Q6H PRN GTB .PAIN 1-3 OR TEMP Last administered on 03/09/19 10:13; Admin Dose 650 MG; Start 02/19/19 at 03:35 Mupirocin (Bactroban) 1 applic BID TOP Last administered on 03/14/19 09:25; Admin Dose 1 APPLIC; Start 02/22/19 at 14:00 Insulin Glargine (Lantus) 4 units DAILY@2000 SC Last administered on 03/13/19 20:50; Admin Dose 4 UNITS; Start 02/26/19 at 20:00 Epoetin Michael-epbx (Retacrit (Esrd)) 4,000 unit MoWeFr@1700 SC Last administered on 03/11/19 18:26; Admin Dose 4,000 UNIT; Start 02/28/19 at 17:00 Olanzapine (Zyprexa) 2.5 mg DAILY GTB Last administered on 03/14/19 09:28; Admin Dose 2.5 MG; Start 03/01/19 at 09:00 Lansoprazole (Prevacid) 30 mg BID@0600,1800 GTB Last administered on 03/14/19 06:03; Admin Dose 30 MG; Start 02/28/19 at 18:00 Ferrous Sulfate (Feosol Liquid Cup) 300 mg BID GTB Last administered on 03/14/19 09:28; Admin Dose 300 MG; Start 03/08/19 at 09:00 Heparin Sodium (Porcine) (Heparin (5000 Units/1ml)) 5,000 unit BID SC Last administered on 03/14/19 09:28; Admin Dose 5,000 UNIT; Start 03/10/19 at 21:00 Albuterol/ Ipratropium (Duoneb) 3 ml Q4H RESP THERAPY HHN Last administered on 03/14/19 12:58; Admin Dose 3 ML; Start 03/12/19 at 10:00 Albuterol/ Ipratropium (Duoneb) 3 ml Q2H RESP THERAPY PRN HHN SHORTNESS OF BREATH; Start 03/12/19 at 10:00 Meropenem/Sodium Chloride 50 ml @ 100 mls/hr Q24H IVPB Last administered on 03/13/19 15:30; Admin Dose 100 MLS/HR; Start 03/12/19 at 14:00 Dextrose/Sodium Chloride 1,000 ml @ 40 mls/hr Q24H IV ; Start 03/13/19 at 14:30 Miscellaneous Information 1 ea NOTE XX ; Start 03/13/19 at 16:30 Glucose (Glutose) 15 gm Q15M PRN PO DECREASED GLUCOSE; Start 03/13/19 at 16:30 Glucose (Glutose) 22.5 gm Q15M PRN PO DECREASED GLUCOSE; Start 03/13/19 at 16:30 Dextrose (D50w Syringe) 25 ml Q15M PRN IV DECREASED GLUCOSE; Start 03/13/19 at 16:30 Dextrose (D50w Syringe) 50 ml Q15M PRN IV DECREASED GLUCOSE; Start 03/13/19 at 16:30 Glucagon (Glucagen) 1 mg Q15M PRN IM DECREASED GLUCOSE; Start 03/13/19 at 16:30 Glucose (Glutose) 15 gm Q15M PRN BUCCAL DECREASED GLUCOSE; Start 03/13/19 at 16:30 PHYLICIA HOLCOMB NP March 14, 2019 13:48
--- NOTE | 2019-03-14 16:09 | CONS ---
Assessment/Plan Assessment/Plan Assessment/Plan (Daily) Hospital Course (Demo Recall) 83 yo female presented with severe anemia Interval hx: No acute changes. Per RN, no GI bleeding noted. hgb 7.7. Tolerating tf at 30cc/hr. 1. Severe anemia,acute on chronic -GI bleed vs chronic disease -stable -retic 2.6, ferritin 4490, neg FOB twice 2. End-stage renal disease on dialysis. 3. Urinary tract infection. -positive yeast 4. Dysphagia, status post percutaneous endoscopic gastrostomy tube placement. 5. Hypertension. 6. Behavioral disorder. 7 clogged to G-tube PLAN: Monitor HH Hold all anti coagulants PPI BID If GI bleeding, noted positive FOB, we will consider push endoscopy So for no acute bleeding or occult bleeding noted Patient is tolerating feeding no nausea no vomiting no evidence of gastroparesis Staff has been advised to declog the G-tube with cola. If it does not work then will change the G-tube G-tube change bedside 20 [place] was used, patient is tolerating feeding May need hematology consult for possible bone marrow biopsy to rule out myelodysplastic syndrome Consultation Date/Type/Reason Admit Date/Time Feb 19, 2019 at 01:01 Initial Consult Date 02/23/19 Requesting Provider: JILLIAN HOLLAND MD Date/Time of Note DATE: 03/14/19 TIME: 16:08 24 HR Interval Summary Constitutional: disoriented Exam/Review of Systems Exam Vitals Vital Signs Date Temp Pulse Resp B/P (MAP) Pulse Ox O2 O2 Flow FiO2 Time Delivery Rate 03/14/19 98.3 95 20 143/61 95 14:14 (88) 03/14/19 Nasal 3.0 13:03 Cannula 03/13/19 40 07:45 Intake and Output 03/13/19 03/13/19 03/14/19 1515:00 23:00 07:00 IntakeIntake Total 185 ml 730 ml BalanceBalance 185 ml 730 ml Constitutional: alert, oriented, well developed Psych: no complaints, nl mood/affect Head: normocephalic, atraumatic Eyes: nl conjunctiva, EOMI, nl lids, nl sclera, PERRL ENMT: nl external ears & nose, nl lips & teeth, nl nasal mucosa & septum Neck: supple, non-tender Respiratory: clear to auscultation, normal air movement Cardiovascular: regular rate and rhythm, nl pulses Gastrointestinal: soft, nl liver, spleen, non-tender Musculoskeletal: nl extremities to inspection, nl gait and stance Extremities: normal pulses 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: DOUGHNUT DOUGH MIXER II-XII intact, nl mental status, nl speech, nl strength Skin: nl turgor; No rash or lesions Lymph: nl lymph nodes Results Result Diagram: 03/14/19 0442 03/14/19 0442 Results 24hrs Laboratory Tests Test 03/13/19 17:08 03/13/19 20:14 03/14/19 03:11 03/14/19 04:42 Bedside Glucose 122 158 175 White Blood Count 11.0 #H Red Blood Count 2.57 L Hemoglobin 7.0 L Hematocrit 22.2 L Mean Corpuscular Volume 86.4 Mean Corpuscular 27.2 L Hemoglobin Mean Corpuscular 31.5 L Hemoglobin Concent Red Cell Distribution 16.4 H Width Platelet Count 283 # Mean Platelet Volume 11.0 H Immature Granulocytes % 1.900 H Neutrophils % 77.9 H Lymphocytes % 7.2 L Monocytes % 9.6 Eosinophils % 2.9 Basophils % 0.5 Nucleated Red Blood 1.4 H Cells % Immature Granulocytes # 0.210 H Neutrophils # 8.6 H Lymphocytes # 0.8 Monocytes # 1.1 H Eosinophils # 0.3 Basophils # 0.1 Nucleated Red Blood 0.2 H Cells # Sodium Level 137 Potassium Level 3.9 Chloride Level 103 Carbon Dioxide Level 28 Anion Gap 6 Blood Urea Nitrogen 43 #H Creatinine 1.82 H Est Glomerular Filtrat Rate mL/min Glucose Level 144 # Calcium Level 8.4 Phosphorus Level 3.2 Magnesium Level 2.2 Test 03/14/19 09:24 Bedside Glucose 150 Medications Medication Current Medications IV Flush (NS 3 ml) 3 ml PER PROTOCOL IV ; Start 02/19/19 at 03:30 Lorazepam (Ativan) 0.5 mg Q8H PRN GTB .ANXIETY Last administered on 03/14/19at 01:15; Admin Dose 0.5 MG; Start 02/19/19 at 03:30 Ondansetron HCl (Zofran Inj) 4 mg Q6H PRN IV NAUSEA/VOMITING; Start 02/19/19 at 03:30 Acetaminophen (Tylenol Tab) 325 mg Q4H PRN GTB FOR FEVER 100AND ABOVE Last administered on 02/20/19 20:13; Admin Dose 325 MG; Start 02/19/19 at 03:30 Acetaminophen (Tylenol Tab) 650 mg Q6H PRN GTB PAIN LEVEL 1-08/18 Last administered on 03/11/19 12:12; Admin Dose 650 MG; Start 02/19/19 at 03:30 Amlodipine Besylate (Norvasc) 5 mg BID GTB Last administered on 03/14/19 09:29; Admin Dose 5 MG; Start 02/19/19 at 09:00 Ascorbic Acid (Vitamin C) 500 mg DAILY GTB Last administered on 03/14/19 09:28; Admin Dose 500 MG; Start 02/19/19 at 09:00 Aspirin (Aspirin) 81 mg DAILY GTB Last administered on 02/26/19 10:20; Admin Dose 81 MG; Start 02/19/19 at 09:00; Status Hold Atorvastatin Calcium (Lipitor) 40 mg QHS GTB Last administered on 03/13/19 20:18; Admin Dose 40 MG; Start 02/19/19 at 21:00 Folic Acid (Folic Acid) 1 mg DAILY GTB Last administered on 03/14/19 09:28; Admin Dose 1 MG; Start 02/19/19 at 09:00 Hydralazine HCl (Apresoline) 25 mg Q8 GTB Last administered on 03/14/19 06:04; Admin Dose 25 MG; Start 02/19/19 at 06:00 Linagliptin (Tradjenta) 5 mg DAILY GTB Last administered on 03/14/19 09:28; Admin Dose 5 MG; Start 02/19/19 at 09:00 Lorazepam (Ativan) 0.5 mg HS PRN GTB ANXIETY Last administered on 03/11/19 20:24; Admin Dose 0.5 MG; Start 02/19/19 at 03:30 Metoprolol Tartrate (Lopressor) 50 mg BID GTB Last administered on 03/14/19 09:29; Admin Dose 50 MG; Start 02/19/19 at 09:00 Ondansetron HCl (Zofran Tab) 4 mg Q4H PRN GTB NAUSEA AND/OR VOMITING; Start 02/19/19 at 03:30 Valproate Sodium (Depakene Liquid Cup) 250 mg Q8 GTB Last administered on 03/14/19 13:51; Admin Dose 250 MG; Start 02/19/19 at 06:00 Docusate Sodium (Colace Liquid Cup) 100 mg DAILY GTB Last administered on 03/14/19 09:28; Admin Dose 100 MG; Start 02/19/19 at 09:00 Docusate Sodium (Colace Liquid Cup) 100 mg Q12H PRN GTB CONSTIPATION; Start 02/19/19 at 04:00 Acetaminophen (Tylenol Tab) 650 mg Q6H PRN GTB .PAIN 1-3 OR TEMP Last administered on 03/09/19 10:13; Admin Dose 650 MG; Start 02/19/19 at 03:35 Mupirocin (Bactroban) 1 applic BID TOP Last administered on 03/14/19 09:25; Admin Dose 1 APPLIC; Start 02/22/19 at 14:00 Insulin Glargine (Lantus) 4 units DAILY@2000 SC Last administered on 03/13/19 20:50; Admin Dose 4 UNITS; Start 02/26/19 at 20:00 Epoetin Michael-epbx (Retacrit (Esrd)) 4,000 unit MoWeFr@1700 SC Last administered on 03/11/19 18:26; Admin Dose 4,000 UNIT; Start 02/28/19 at 17:00 Olanzapine (Zyprexa) 2.5 mg DAILY GTB Last administered on 03/14/19 09:28; Admin Dose 2.5 MG; Start 03/01/19 at 09:00 Lansoprazole (Prevacid) 30 mg BID@0600,1800 GTB Last administered on 03/14/19 06:03; Admin Dose 30 MG; Start 02/28/19 at 18:00 Ferrous Sulfate (Feosol Liquid Cup) 300 mg BID GTB Last administered on 03/14/19 09:28; Admin Dose 300 MG; Start 03/08/19 at 09:00 Heparin Sodium (Porcine) (Heparin (5000 Units/1ml)) 5,000 unit BID SC Last administered on 03/14/19 09:28; Admin Dose 5,000 UNIT; Start 03/10/19 at 21:00 Albuterol/ Ipratropium (Duoneb) 3 ml Q4H RESP THERAPY HHN Last administered on 03/14/19at 12:58; Admin Dose 3 ML; Start 03/12/19 at 10:00 Albuterol/ Ipratropium (Duoneb) 3 ml Q2H RESP THERAPY PRN HHN SHORTNESS OF BREATH; Start 03/12/19 at 10:00 Meropenem/Sodium Chloride 50 ml @ 100 mls/hr Q24H IVPB Last administered on 03/13/19at 15:30; Admin Dose 100 MLS/HR; Start 03/12/19 at 14:00 Dextrose/Sodium Chloride 1,000 ml @ 40 mls/hr Q24H IV ; Start 03/13/19 at 14:30 Miscellaneous Information 1 ea NOTE XX ; Start 03/13/19 at 16:30 Glucose (Glutose) 15 gm Q15M PRN PO DECREASED GLUCOSE; Start 03/13/19 at 16:30 Glucose (Glutose) 22.5 gm Q15M PRN PO DECREASED GLUCOSE; Start 03/13/19 at 16:30 Dextrose (D50w Syringe) 25 ml Q15M PRN IV DECREASED GLUCOSE; Start 03/13/19 at 16:30 Dextrose (D50w Syringe) 50 ml Q15M PRN IV DECREASED GLUCOSE; Start 03/13/19 at 16:30 Glucagon (Glucagen) 1 mg Q15M PRN IM DECREASED GLUCOSE; Start 03/13/19 at 16:30 Glucose (Glutose) 15 gm Q15M PRN BUCCAL DECREASED GLUCOSE; Start 03/13/19 at 16:30 CHRISS WELCH MD March 14, 2019 16:09
[2019-03-14] MEDS: MEROPENEM 500MG/50 ML (PMX) 50 ML IVPB SCH (17:17)
[2019-03-14] MEDS: EPOETIN ALFA-EPBX (ESRD) 4,000 UNIT/ML VIAL SC SCH (17:18)
[2019-03-14] MEDS: ATORVASTATIN 40 MG TAB GTB SCH (20:28)
[2019-03-14] MEDS: INSULIN GLARGINE [LANTus] (100 UNITS/ML) SYG SC SCH (20:40)
[2019-03-15] VITALS (15 sets, daily range): BP systolic 124–143; BP diastolic 60–75; PULSE 64–104; RESP 18–20
[2019-03-15] MEDS: ALBUTEROL/IPRATROPIUM (NEB) 3 ML AMP HHN SCH ×6 (00:42→20:37)
[2019-03-15] MEDS: VALPROIC ACID LIQUID CUP 250 MG/5 ML CUP GTB SCH ×3 (05:35→21:40)
[2019-03-15] MEDS: LANSOPRAZOLE 30 MG CAP GTB SCH ×2 (05:35→17:29)
--- NOTE | 2019-03-15 06:47 | PN ---
DATE: 03/14/2019 SUBJECTIVE: The patient is seen, currently receiving dialysis. The patient to be transfused 1 unit of PRBC due to drop in hemoglobin to 7.0 with a hematocrit of 22. No acute events otherwise. White count has improved to 11,000. PHYSICAL EXAMINATION: VITAL SIGNS: Temperature 98.3, pulse 96, respiration 20, blood pressure 168/85, saturation 97% on 3 liters. This is prior to dialysis. GENERAL: The patient is in no acute distress. The patient is frail. HEENT: Dry mucous membranes. CARDIOVASCULAR: S1, S2. LUNGS: Decreased bilaterally. ABDOMEN: Soft. G-tube in place. EXTREMITIES: No clubbing or cyanosis. Upper extremity slight edema. ASSESSMENT AND PLAN: This is an 83-year-old unfortunate [place] female with end-stage renal disease , vascular dementia, hypertension, diabetes mellitus, presented with fever, was found to have urinary tract infection bacteremia, line sepsis, status post Perm-A-Cath exchange. 1. Respiratory. Continue aspiration precaution, O2 support, antibiotics and dialysis for fluid megha terrance. 2. Cardiovascular. Blood pressure is high, likely due to medication being held prior to dialysis. Continue to monitor. Titrate medication up as needed. Off blood thinners due to ongoing anemia and risk for gastrointestinal bleed. 3. End-stage renal disease, dialysis every Thursday, Thursday, Thursday. 4. Anemia. Transfuse 1 unit of PRBC. Continue iron supplement and Epogen. 5. Status post treatment for Dominique glabrata empirically on antibiotics for aspiration pneumo wendy. Follow up chest x-ray. 6. Diabetes mellitus. Continue above insulin regimen. 7. Psychiatric disorder, on Zyprexa. 8. Malfunctioning G-tube. A new G-tube was placed. Appreciate Dr. Baird's input. DISPOSITION: Hopefully soon to long term facility for ongoing care. long term prognosis guard ed due to prolonged hospitalization and multiple medical issues. The patient with advanced dementia with poor quality of life. The patient is DNR. We will follow. Dictated By: DYLON HULL/MADAN Conf#: [id number] DID#: [id number]
[2019-03-15] MEDS: HEPARIN 5,000 UNIT/1 ML VIAL SC SCH ×2 (09:00→20:51)
[2019-03-15] MEDS: DOCUSATE SODIUM 10 MG/ML (10ML CUP) GTB SCH (09:07)
[2019-03-15] MEDS: OLANZAPINE 2.5 MG TAB GTB SCH (09:07)
[2019-03-15] MEDS: FERROUS SULFATE 60 MG/ML 5ML CUP GTB SCH ×2 (09:07→20:41)
[2019-03-15] MEDS: LINAGLIPTIN 5 MG TABLET GTB SCH (09:08)
[2019-03-15] MEDS: FOLIC ACID 1 MG TAB GTB SCH (09:08)
[2019-03-15] MEDS: ASCORBIC ACID 500 MG TAB GTB SCH (09:08)
[2019-03-15] MEDS: MUPIROCIN 2% 22 GM OINT TOP SCH ×2 (09:08→20:53)
[2019-03-15] MEDS: AMLODIPINE 5 MG TAB GTB SCH ×2 (09:08→20:41)
[2019-03-15] MEDS: METOPROLOL 50 MG TAB GTB SCH ×2 (09:08→20:42)
[2019-03-15] MEDS ORDERED: NEUTRA-PHOS 250 MG PACKET NGT SCH (11:30)
--- NOTE | 2019-03-15 11:57 | CONS ---
Assessment/Plan Assessment/Plan Assessment/Plan (Daily) 1. Fevers, likely secondary to urinary tract infection, now bld cx positive gram + Enterococcus 2. End-stage renal disease on hemodialysis. 3. Urinary tract infection. 4. Hypertension. 5. Dementia. 6. Diabetes mellitus type II. 7. Diastolic heart failure. 8. Moderate protein energy malnutrition with cachexia. 9. Osteoarthritis. 10. GT status 11. Anemia of chronic disease 12. REsp failure, On BIPAP Assessment/Plan (Daily) -c/w HD, MWFR, hd tm - will get ABG to check for co2 levels given AMS - Replete phos -c/w epoetin 3 times a week Consultation Date/Type/Reason Admit Date/Time Feb 19, 2019 at 01:01 Initial Consult Date Requesting Provider: JILLIAN HOLLAND MD Date/Time of Note DATE: 03/15/19 TIME: 11:57 24 HR Interval Summary Free Text/Dictation ltttle more lethargic today Exam/Review of Systems Exam Vitals Vital Signs Date Temp Pulse Resp B/P (MAP) Pulse Ox O2 O2 Flow FiO2 Time Delivery Rate 03/15/19 98.6 82 20 140/67 100 09:55 (91) 03/15/19 Nasal 3.0 08:18 Cannula 03/13/19 40 07:45 Intake and Output 03/14/19 03/14/19 03/15/19 1515:00 23:00 07:00 IntakeIntake Total 1060 ml 610 ml OutputOutput Total 3000 ml BalanceBalance -1940 ml 610 ml Exam eft chest Perm cath Head: normocephalic, pt lethargic Neck: supple Respiratory: diminished breath sounds Cardiovascular: regular rate and rhythm Gastrointestinal: soft, other (G tube clogged) Musculoskeletal: muscle weakness Results Result Diagram: 03/15/19 0742 03/15/19 0615 Results 24hrs Laboratory Tests Test 03/14/19 20:22 03/15/19 02:41 03/15/19 06:15 03/15/19 07:42 Bedside Glucose 200 138 Sodium Level 137 Potassium Level 4.0 Chloride Level 102 Carbon Dioxide Level 30 Anion Gap 5 Blood Urea Nitrogen 27 #H Creatinine 1.14 H Est Glomerular Filtrat Rate mL/min Glucose Level 143 Calcium Level 8.1 L Phosphorus Level 1.7 #L Magnesium Level 2.1 White Blood Count 10.3 Red Blood Count 3.43 #L Hemoglobin 9.4 #L Hematocrit 29.2 #L Mean Corpuscular Volume 85.1 Mean Corpuscular 27.4 L Hemoglobin Mean Corpuscular 32.2 Hemoglobin Concent Red Cell Distribution 16.9 H Width Platelet Count 264 Mean Platelet Volume 11.4 H Immature Granulocytes % 2.000 H Neutrophils % 69.9 Lymphocytes % 16.0 Monocytes % 9.3 Eosinophils % 2.4 Basophils % 0.4 Nucleated Red Blood 1.6 H Cells % Immature Granulocytes # 0.210 H Neutrophils # 7.2 Lymphocytes # 1.6 Monocytes # 1.0 H Eosinophils # 0.3 Basophils # 0.0 Nucleated Red Blood 0.2 H Cells # Test 03/15/19 09:06 Bedside Glucose 170 Medications Medication Current Medications IV Flush (NS 3 ml) 3 ml PER PROTOCOL IV ; Start 02/19/19 at 03:30 Lorazepam (Ativan) 0.5 mg Q8H PRN GTB .ANXIETY Last administered on 03/14/19 01:15; Admin Dose 0.5 MG; Start 02/19/19 at 03:30 Ondansetron HCl (Zofran Inj) 4 mg Q6H PRN IV NAUSEA/VOMITING; Start 02/19/19 at 03:30 Acetaminophen (Tylenol Tab) 325 mg Q4H PRN GTB FOR FEVER 100AND ABOVE Last administered on 02/20/19 20:13; Admin Dose 325 MG; Start 02/19/19 at 03:30 Acetaminophen (Tylenol Tab) 650 mg Q6H PRN GTB PAIN LEVEL 1-10/10 Last administered on 03/11/19 12:12; Admin Dose 650 MG; Start 02/19/19 at 03:30 Amlodipine Besylate (Norvasc) 5 mg BID GTB Last administered on 03/15/19 09:08; Admin Dose 5 MG; Start 02/19/19 at 09:00 Ascorbic Acid (Vitamin C) 500 mg DAILY GTB Last administered on 03/15/19 09:08; Admin Dose 500 MG; Start 02/19/19 at 09:00 Aspirin (Aspirin) 81 mg DAILY GTB Last administered on 02/26/19 10:20; Admin Dose 81 MG; Start 02/19/19 at 09:00; Status Hold Atorvastatin Calcium (Lipitor) 40 mg QHS GTB Last administered on 03/14/19 20:28; Admin Dose 40 MG; Start 02/19/19 at 21:00 Folic Acid (Folic Acid) 1 mg DAILY GTB Last administered on 03/15/19 09:08; Admin Dose 1 MG; Start 02/19/19 at 09:00 Hydralazine HCl (Apresoline) 25 mg Q8 GTB Last administered on 03/15/19 05:35; Admin Dose 25 MG; Start 02/19/19 at 06:00 Linagliptin (Tradjenta) 5 mg DAILY GTB Last administered on 03/15/19 09:08; Admin Dose 5 MG; Start 02/19/19 at 09:00 Lorazepam (Ativan) 0.5 mg HS PRN GTB ANXIETY Last administered on 03/11/19 20:24; Admin Dose 0.5 MG; Start 02/19/19 at 03:30 Metoprolol Tartrate (Lopressor) 50 mg BID GTB Last administered on 03/15/19 09:08; Admin Dose 50 MG; Start 02/19/19 at 09:00 Ondansetron HCl (Zofran Tab) 4 mg Q4H PRN GTB NAUSEA AND/OR VOMITING; Start 02/19/19 at 03:30 Valproate Sodium (Depakene Liquid Cup) 250 mg Q8 GTB Last administered on 03/15/19 05:35; Admin Dose 250 MG; Start 02/19/19 at 06:00 Docusate Sodium (Colace Liquid Cup) 100 mg DAILY GTB Last administered on 03/15/19 09:07; Admin Dose 100 MG; Start 02/19/19 at 09:00 Docusate Sodium (Colace Liquid Cup) 100 mg Q12H PRN GTB CONSTIPATION; Start 02/19/19 at 04:00 Acetaminophen (Tylenol Tab) 650 mg Q6H PRN GTB .PAIN 1-3 OR TEMP Last admini stered on 03/09/19 10:13; Admin Dose 650 MG; Start 02/19/19 at 03:35 Mupirocin (Bactroban) 1 applic BID TOP Last administered on 03/15/19 09:08; Admin Dose 1 APPLIC; Start 02/22/19 at 14:00 Insulin Glargine (Lantus) 4 units DAILY@2000 SC Last administered on 03/14/19 20:40; Admin Dose 4 UNITS; Start 02/26/19 at 20:00 Epoetin Michael-epbx (Retacrit (Esrd)) 4,000 unit MoWeFr@1700 SC Last administered on 03/14/19 17:18; Admin Dose 4,000 UNIT; Start 02/28/19 at 17:00 Olanzapine (Zyprexa) 2.5 mg DAILY GTB Last administered on 03/15/19 09:07; Admin Dose 2.5 MG; Start 03/01/19 at 09:00 Lansoprazole (Prevacid) 30 mg BID@0600,1800 GTB Last administered on 03/15/19 05:35; Admin Dose 30 MG; Start 02/28/19 at 18:00 Ferrous Sulfate (Feosol Liquid Cup) 300 mg BID GTB Last administered on 03/15/19 09:07; Admin Dose 300 MG; Start 03/08/19 at 09:00 Heparin Sodium (Porcine) (Heparin (5000 Units/1ml)) 5,000 unit BID SC Last administered on 03/14/19 20:39; Admin Dose 5,000 UNIT; Start 03/10/19 at 21:00 Albuterol/ Ipratropium (Duoneb) 3 ml Q4H RESP THERAPY HHN Last administered on 03/15/19 08:14; Admin Dose 3 ML; Start 03/12/19 at 10:00 Albuterol/ Ipratropium (Duoneb) 3 ml Q2H RESP THERAPY PRN HHN SHORTNESS OF BREATH; Start 03/12/19 at 10:00 Meropenem/Sodium Chloride 50 ml @ 100 mls/hr Q24H IVPB Last administered on 03/14/19 17:17; Admin Dose 100 MLS/HR; Start 03/12/19 at 14:00 Dextrose/Sodium Chloride 1,000 ml @ 40 mls/hr Q24H IV ; Start 03/13/19 at 14:30 Miscellaneous Information 1 ea NOTE XX ; Start 03/13/19 at 16:30 Glucose (Glutose) 15 gm Q15M PRN PO DECREASED GLUCOSE; Start 03/13/19 at 16:30 Glucose (Glutose) 22.5 gm Q15M PRN PO DECREASED GLUCOSE; Start 03/13/19 at 16:30 Dextrose (D50w Syringe) 25 ml Q15M PRN IV DECREASED GLUCOSE; Start 03/13/19 at 16:30 Dextrose (D50w Syringe) 50 ml Q15M PRN IV DECREASED GLUCOSE; Start 03/13/19 at 16:30 Glucagon (Glucagen) 1 mg Q15M PRN IM DECREASED GLUCOSE; Start 03/13/19 at 16:30 Glucose (Glutose) 15 gm Q15M PRN BUCCAL DECREASED GLUCOSE; Start 03/13/19 at 16:30 Sodium Phosphate (Neutra-Phos) 500 mg ONCE NGT Last administered on 03/15/19at 11:42; Admin Dose 500 MG; Start 03/15/19 at 11:30; Stop 03/15/19 at 15:00 JOSE RAUL ANDREWS MD March 15, 2019 11:57
--- NOTE | 2019-03-15 14:13 | CONS ---
Assessment/Plan Assessment/Plan Hospital Course (Demo Recall) Awake confused, looks comfortable, no fevers Antimicrobials: Meropenem Indwelling: Left subclavian permacath, PEG Microbiology: Urine culture on admission grew Dominique glabrata, blood culture grew Enterococcus Chest x-ray on admission revealed no definite evidence of pneumonia or CHF Physical examination: This is a chronically ill-appearing wasted elderly woman who is in no distress. Head atraumatic normocephalic. Neck is supple. Chest rise symmetrical patient is mildly tachypneic with expiratory wheezes. Heart: S1-S2, tachycardic. Abdomen soft bowel sounds present. Extremities without cyanosis edema. Assessment: 1. Acute hypoxemia possibly combination of aspiration and fluid overload 2. Status post recurrent UTI and bacteremia 4. End-stage renal disease, hemodialysis dependent 5. Anemia 6. 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 Plan: Remains stable, WBC normalized, continue antibiotics, aspiration precautions, hemodialysis per renal Consultation Date/Type/Reason Admit Date/Time Feb 19, 2019 at 01:01 Initial Consult Date Type of Consult id Requesting Provider: JILLIAN HOLLAND MD Date/Time of Note DATE: 03/15/19 TIME: 14:12 Exam/Review of Systems Exam Vitals Vital Signs Date Temp Pulse Resp B/P (MAP) Pulse Ox O2 O2 Flow FiO2 Time Delivery Rate 03/15/19 80 18 97 Nasal 3.0 12:59 Cannula 03/15/19 98.6 140/67 09:55 (91) 03/13/19 40 07:45 Intake and Output 03/14/19 03/14/19 03/15/19 1515:00 23:00 07:00 IntakeIntake Total 1060 ml 610 ml OutputOutput Total 3000 ml BalanceBalance -1940 ml 610 ml Results Result Diagram: 03/15/19 0742 03/15/19 0615 Results 24hrs Laboratory Tests Test 03/14/19 20:22 03/15/19 02:41 03/15/19 06:15 03/15/19 07:42 Bedside Glucose 200 138 Sodium Level 137 Potassium Level 4.0 Chloride Level 102 Carbon Dioxide 30 Level Anion Gap 5 Blood Urea 27 #H Nitrogen Creatinine 1.14 H Est Glomerular Filtrat Rate mL/min Glucose Level 143 Calcium Level 8.1 L Phosphorus Level 1.7 #L Magnesium Level 2.1 White Blood Count 10.3 Red Blood Count 3.43 #L Hemoglobin 9.4 #L Hematocrit 29.2 #L Mean Corpuscular 85.1 Volume Mean Corpuscular 27.4 L Hemoglobin Mean Corpuscular 32.2 Hemoglobin Concent Red Cell 16.9 H Distribution Width Platelet Count 264 Mean Platelet 11.4 H Volume Immature 2.000 H Granulocytes % Neutrophils % 69.9 Lymphocytes % 16.0 Monocytes % 9.3 Eosinophils % 2.4 Basophils % 0.4 Nucleated Red 1.6 H Blood Cells % Immature 0.210 H Granulocytes # Neutrophils # 7.2 Lymphocytes # 1.6 Monocytes # 1.0 H Eosinophils # 0.3 Basophils # 0.0 Nucleated Red 0.2 H Blood Cells # Test 03/15/19 09:06 03/15/19 12:00 Bedside Glucose 170 Blood Gas Specimen Blood arterial Source Arterial Blood 03/15/2019 12:45:20 Date Drawn PM Arterial Blood pH 7.463 H (Temp corrected) Arterial Blood 45.6 H pCO2 (Temp correct) Arterial Blood pO2 97.7 H (Temp corrected) Arterial Blood 31.9 H HCO3 Arterial Blood 7.3 H Base Excess Arterial Blood 97.5 Oxygen Saturation Mil Test ACCEPTAB Arterial Blood Gas Right Radial Puncture Site Arterial 0.2 Blood Carboxyhemog lobin Arterial Blood 0.3 Methemoglobin Blood Gas A-a O2 62.6 H Differential Oxyhemoglobin 97.0 Percent Blood Gas 37.0 Temperature Blood Gas Modality NASAL CANNULA FiO2 30.0 Blood Gas Notified TM Whom Blood Gas Notified 03/15/2019 12:55:02 Time PM Medications Medication Current Medications IV Flush (NS 3 ml) 3 ml PER PROTOCOL IV ; Start 02/19/19 at 03:30 Lorazepam (Ativan) 0.5 mg Q8H PRN GTB .ANXIETY Last administered on 03/14/19at 01:15; Admin Dose 0.5 MG; Start 02/19/19 at 03:30 Ondansetron HCl (Zofran Inj) 4 mg Q6H PRN IV NAUSEA/VOMITING; Start 02/19/19 at 03:30 Acetaminophen (Tylenol Tab) 325 mg Q4H PRN GTB FOR FEVER 100AND ABOVE Last administered on 02/20/19at 20:13; Admin Dose 325 MG; Start 02/19/19 at 03:30 Acetaminophen (Tylenol Tab) 650 mg Q6H PRN GTB PAIN LEVEL 1-08/18 Last administered on 03/11/19 12:12; Admin Dose 650 MG; Start 02/19/19 at 03:30 Amlodipine Besylate (Norvasc) 5 mg BID GTB Last administered on 03/15/19 09:08; Admin Dose 5 MG; Start 02/19/19 at 09:00 Ascorbic Acid (Vitamin C) 500 mg DAILY GTB Last administered on 03/15/19 09:08; Admin Dose 500 MG; Start 02/19/19 at 09:00 Aspirin (Aspirin) 81 mg DAILY GTB Last administered on 02/26/19 10:20; Admin Dose 81 MG; Start 02/19/19 at 09:00; Status Hold Atorvastatin Calcium (Lipitor) 40 mg QHS GTB Last administered on 03/14/19 2 0:28; Admin Dose 40 MG; Start 02/19/19 at 21:00 Folic Acid (Folic Acid) 1 mg DAILY GTB Last administered on 03/15/19 09:08; Admin Dose 1 MG; Start 02/19/19 at 09:00 Hydralazine HCl (Apresoline) 25 mg Q8 GTB Last administered on 03/15/19 05:35; Admin Dose 25 MG; Start 02/19/19 at 06:00 Linagliptin (Tradjenta) 5 mg DAILY GTB Last administered on 03/15/19 09:08; Admin Dose 5 MG; Start 02/19/19 at 09:00 Lorazepam (Ativan) 0.5 mg HS PRN GTB ANXIETY Last administered on 03/11/19 20:24; Admin Dose 0.5 MG; Start 02/19/19 at 03:30 Metoprolol Tartrate (Lopressor) 50 mg BID GTB Last administered on 03/15/19 09:08; Admin Dose 50 MG; Start 02/19/19 at 09:00 Ondansetron HCl (Zofran Tab) 4 mg Q4H PRN GTB NAUSEA AND/OR VOMITING; Start 02/19/19 at 03:30 Valproate Sodium (Depakene Liquid Cup) 250 mg Q8 GTB Last administered on 03/15/19 05:35; Admin Dose 250 MG; Start 02/19/19 at 06:00 Docusate Sodium (Colace Liquid Cup) 100 mg DAILY GTB Last administered on 03/15/19 09:07; Admin Dose 100 MG; Start 02/19/19 at 09:00 Docusate Sodium (Colace Liquid Cup) 100 mg Q12H PRN GTB CONSTIPATION; Start at 04:00 Acetaminophen (Tylenol Tab) 650 mg Q6H PRN GTB .PAIN 1-3 OR TEMP Last administered on 03/09/19 10:13; Admin Dose 650 MG; Start 02/19/19 at 03:35 Mupirocin (Bactroban) 1 applic BID TOP Last administered on 03/15/19 09:08; Admin Dose 1 APPLIC; Start 02/22/19 at 14:00 Insulin Glargine (Lantus) 4 units DAILY@2000 SC Last administered on 03/14/19 20:40; Admin Dose 4 UNITS; Start 02/26/19 at 20:00 Epoetin Michael-epbx (Retacrit (Esrd)) 4,000 unit MoWeFr@1700 SC Last administered on 03/14/19 17:18; Admin Dose 4,000 UNIT; Start 02/28/19 at 17:00 Olanzapine (Zyprexa) 2.5 mg DAILY GTB Last administered on 03/15/19 09:07; Admin Dose 2.5 MG; Start 03/01/19 at 09:00 Lansoprazole (Prevacid) 30 mg BID@0600,1800 GTB Last administered on 03/15/19 05:35; Admin Dose 30 MG; Start 02/28/19 at 18:00 Ferrous Sulfate (Feosol Liquid Cup) 300 mg BID GTB Last administered on 03/15/19 09:07; Admin Dose 300 MG; Start 03/08/19 at 09:00 Heparin Sodium (Porcine) (Heparin (5000 Units/1ml)) 5,000 unit BID SC Last administered on 03/14/19 20:39; Admin Dose 5,000 UNIT; Start 03/10/19 at 21:00 Albuterol/ Ipratropium (Duoneb) 3 ml Q4H RESP THERAPY HHN Last administered on 03/15/19 12:57; Admin Dose 3 ML; Start 03/12/19 at 10:00 Albuterol/ Ipratropium (Duoneb) 3 ml Q2H RESP THERAPY PRN HHN SHORTNESS OF BREATH; Start 03/12/19 at 10:00 Meropenem/Sodium Chloride 50 ml @ 100 mls/hr Q24H IVPB Last administered on 03/14/19at 17:17; Admin Dose 100 MLS/HR; Start 03/12/19 at 14:00 Dextrose/Sodium Chloride 1,000 ml @ 40 mls/hr Q24H IV ; Start 03/13/19 at 14:30 Miscellaneous Information 1 ea NOTE XX ; Start 03/13/19 at 16:30 Glucose (Glutose) 15 gm Q15M PRN PO DECREASED GLUCOSE; Start 03/13/19 at 16:30 Glucose (Glutose) 22.5 gm Q15M PRN PO DECREASED GLUCOSE; Start 03/13/19 at 16:30 Dextrose (D50w Syringe) 25 ml Q15M PRN IV DECREASED GLUCOSE; Start 03/13/19 at 16:30 Dextrose (D50w Syringe) 50 ml Q15M PRN IV DECREASED GLUCOSE; Start 03/13/19 at 16:30 Glucagon (Glucagen) 1 mg Q15M PRN IM DECREASED GLUCOSE; Start 03/13/19 at 16:30 Glucose (Glutose) 15 gm Q15M PRN BUCCAL DECREASED GLUCOSE; Start 03/13/19 at 16:30 Sodium Phosphate (Neutra-Phos) 500 mg ONCE NGT Last administered on 03/15/19at 11:42; Admin Dose 500 MG; Start 03/15/19 at 11:30; Stop 03/15/19 at 15:00 PHYLICIA HOLCOMB NP March 15, 2019 14:13
[2019-03-15] MEDS: DEXTROSE 5%-0.9% NACL 1,000 ML IV SCH (14:30)
[2019-03-15] MEDS: MEROPENEM 500MG/50 ML (PMX) 50 ML IVPB SCH (15:20)
--- NOTE | 2019-03-15 16:03 | RADRPT ---
Vent Rate: 90 bpm RR Interval: 664 msec DE Interval: 181 msec QRS Duration: 78 msec QT Interval: 389 msec QTC Interval: 477 msec P-R-T [place]: 76 - 76 - 59 degrees Sinus rhythm...normal P axis, V-rate 50- 99 Anterior infarct, old...Q >40mS, abnormal ST-T, V2-V5 Electronically Signed By: Iker Dallas
--- NOTE | 2019-03-15 16:13 | PN ---
DATE: 03/15/2019 SUBJECTIVE: Patient seen, resting comfortably in bed. Case discussed with nursing staff. VITAL SIGNS: Temperature is 98.6, pulse 80, respirations 18, blood pressure 140/67, saturation 97-10 0% on 3 liters. GENERAL: No acute distress. Patient is pale, frail. CARDIOVASCULAR: S1, S2, regular rate. LUNGS: Clear. Poor inspiratory effort. ABDOMEN: Soft. G-tube in place. EXTREMITIES: Upper extremity edema, right greater than left, +1. LABORATORY DATA: White count is normal at 10.3, hemoglobin 9.4, hematocrit 29, platelet count of 264 , neutrophils 70%, lymphocytes 16%. Chemistry: Sodium 137, potassium 4.0, chloride 2, bicarbonate 3 0, BUN 27, creatinine 1.04, glucose 143, phosphorus slightly low this morning at 5.7. MEDICATIONS: Reviewed: 1. Sodium phosphorus 500 once. Hypoglycemia protocol. She is on D5 be discontinued. Merrem as dire cted. 2. DuoNeb as directed. 3. Heparin 5000 b.i.d. 4. Ferrous sulfate 300 b.i.d. 5. Zyprexa 2.5 daily. 6. Prevacid 30 mg b.i.d. 7. Epogen as directed. 8. Lantus 4 units at bedtime. 8. Bactroban ointment b.i.d. 10. Lipitor 40. 11. Norvasc 5 mg b.i.d. 12. Vitamin C 500 mg daily. 13. Folic acid 1 mg daily. 14. Tradjenta 5 mg daily. 15. Metoprolol tartrate 50 mg b.i.d. 16. Colace as directed 125 q.8h. 17. Depakote 250 q.8h. 18. Colace p.r.n. As needed medications were all reviewed. ASSESSMENT AND PLAN: This is an 83-year-old unfortunate Filipina female with end-stage renal disease , vascular dementia, hypertension, diabetes mellitus, who presents with fever, was found to have UTI, line sepsis, status post Perm-A-Cath exchange with episode of respiratory failure, now with question able aspiration, on antibiotics. 1. Respiratory. Continue aspiration precaution, suctioning, O2 support. Empirically on Merrem for aspiration pneumonia. 2. Cardiovascular. Stable on heparin for DVT prophylaxis. Blood pressure is better controlled with above meds. 3. End-stage renal disease. Last dialysis yesterday. Next dialysis tomorrow. 4. Anemia, status post transfusion. Continue iron supplement and Epogen. No evidence of bleeding. 5. Status post treatment for Dominique glabrata urinary tract infection, now being treated with Merrem for aspiration pneumonia. 6. Diabetes mellitus. Continue above insulin regimen and Tradjenta. 7. Psychiatric disease, continue on Zyprexa. 8. Dysphagia. G-tube feeding at 30 mL an hour, tolerating it well. 9. Fall precautions are in place. Case discussed with nursing staff regarding that. manager personnel selection t o assist with placement. Overall, DNR/DNI with overall long-term poor prognosis. Dictated By: DYLON HULL/MADAN Conf#: [id number] DID#: [id number]
--- NOTE | 2019-03-15 18:25 | CONS ---
Assessment/Plan Assessment/Plan Assessment/Plan (Daily) pital Course (Demo Recall) 83 yo female presented with severe anemia Interval hx: No acute changes. Per RN, no GI bleeding noted. hgb 7.7. Tolerating tf at 30cc/hr. 1. Severe anemia,acute on chronic -GI bleed vs chronic disease -stable -retic 2.6, ferritin 4490, neg FOB twice 2. End-stage renal disease on dialysis. 3. Urinary tract infection. -positive yeast 4. Dysphagia, status post percutaneous endoscopic gastrostomy tube placement. 5. Hypertension. 6. Behavioral disorder. 7 clogged to G-tube PLAN: Monitor HH Hold all anti coagulants PPI BID If GI bleeding, noted positive FOB, we will consider push endoscopy So for no acute bleeding or occult bleeding noted Patient is tolerating feeding no nausea no vomiting no evidence of gastroparesis Staff has been advised to declog the G-tube with cola. If it does not work then will change the G-tube G-tube change bedside 20 Cuban was used, patient is tolerating feeding May need hematology consult for possible bone marrow biopsy to rule out myelodysplastic syndrome Consultation Date/Type/Reason Admit Date/Time Feb 19, 2019 at 01:01 Initial Consult Date 02/23/19 Requesting Provider: JILLIAN HOLLAND MD Date/Time of Note DATE: 03/15/19 TIME: 18:25 24 HR Interval Summary Constitutional: improved Exam/Review of Systems Exam Vitals Vital Signs Date Temp Pulse Resp B/P (MAP) Pulse Ox O2 O2 Flow FiO2 Time Delivery Rate 03/15/19 89 18 98 Nasal 3.0 16:49 Cannula 03/15/19 126/73 15:26 (90) 03/15/19 98.3 12:00 03/13/19 40 07:45 Intake and Output 03/14/19 03/14/19 03/15/19 1515:00 23:00 07:00 IntakeIntake Total 1060 ml 610 ml OutputOutput Total 3000 ml BalanceBalance -1940 ml 610 ml Constitutional: alert, oriented, well developed Psych: no complaints, nl mood/affect Head: normocephalic, atraumatic Eyes: nl conjunctiva, EOMI, nl lids, nl sclera, PERRL ENMT: nl external ears & nose, nl lips & teeth, nl nasal mucosa & septum Neck: supple, non-tender Respiratory: clear to auscultation, normal air movement Cardiovascular: regular rate and rhythm, nl pulses Gastrointestinal: soft, nl liver, spleen, non-tender Musculoskeletal: nl extremities to inspection, nl gait and stance Extremities: normal pulses 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: 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, nl mental status, nl speech, nl strength Skin: nl turgor; No rash or lesions Lymph: nl lymph nodes Results Result Diagram: 03/15/19 0742 03/15/19 0615 Results 24hrs Laboratory Tests Test 03/14/19 20:22 03/15/19 02:41 03/15/19 06:15 03/15/19 07:42 Bedside Glucose 200 138 Sodium Level 137 Potassium Level 4.0 Chloride Level 102 Carbon Dioxide 30 Level Anion Gap 5 Blood Urea 27 #H Nitrogen Creatinine 1.14 H Est Glomerular Filtrat Rate mL/min Glucose Level 143 Calcium Level 8.1 L Phosphorus Level 1.7 #L Magnesium Level 2.1 White Blood Count 10.3 Red Blood Count 3.43 #L Hemoglobin 9.4 #L Hematocrit 29.2 #L Mean Corpuscular 85.1 Volume Mean Corpuscular 27.4 L Hemoglobin Mean Corpuscular 32.2 Hemoglobin Concent Red Cell 16.9 H Distribution Width Platelet Count 264 Mean Platelet 11.4 H Volume Immature 2.000 H Granulocytes % Neutrophils % 69.9 Lymphocytes % 16.0 Monocytes % 9.3 Eosinophils % 2.4 Basophils % 0.4 Nucleated Red 1.6 H Blood Cells % Immature 0.210 H Granulocytes # Neutrophils # 7.2 Lymphocytes # 1.6 Monocytes # 1.0 H Eosinophils # 0.3 Basophils # 0.0 Nucleated Red 0.2 H Blood Cells # Test 03/15/19 09:06 03/15/19 12:00 Bedside Glucose 170 Blood Gas Specimen Blood arterial Source Arterial Blood 03/15/2019 12:45:20 Date Drawn PM Arterial Blood pH 7.463 H (Temp corrected) Arterial Blood 45.6 H pCO2 (Temp correct) Arterial Blood pO2 97.7 H (Temp corrected) Arterial Blood 31.9 H HCO3 Arterial Blood 7.3 H Base Excess Arterial Blood 97.5 Oxygen Saturation Mil Test ACCEPTAB Arterial Blood Gas Right Radial Puncture Site Arterial 0.2 Blood Carboxyhemog lobin Arterial Blood 0.3 Methemoglobin Blood Gas A-a O2 62.6 H Differential Oxyhemoglobin 97.0 Percent Blood Gas 37.0 Temperature Blood Gas Modality NASAL CANNULA FiO2 30.0 Blood Gas Notified TM Whom Blood Gas Notified 03/15/2019 12:55:02 Time PM Medications Medication Current Medications IV Flush (NS 3 ml) 3 ml PER PROTOCOL IV ; Start 02/19/19 at 03:30 Lorazepam (Ativan) 0.5 mg Q8H PRN GTB .ANXIETY Last administered on 03/14/19 01:15; Admin Dose 0.5 MG; Start 02/19/19 at 03:30 Ondansetron HCl (Zofran Inj) 4 mg Q6H PRN IV NAUSEA/VOMITING; Start 02/19/19 at 03:30 Acetaminophen (Tylenol Tab) 325 mg Q4H PRN GTB FOR FEVER 100AND ABOVE Last administered on 02/20/19 20:13; Admin Dose 325 MG; Start 02/19/19 at 03:30 Acetaminophen (Tylenol Tab) 650 mg Q6H PRN GTB PAIN LEVEL 1-10/10 Last administered on 03/11/19 12:12; Admin Dose 650 MG; Start 02/19/19 at 03:30 Amlodipine Besylate (Norvasc) 5 mg BID GTB Last administered on 03/15/19 09:08; Admin Dose 5 MG; Start 02/19/19 at 09:00 Ascorbic Acid (Vitamin C) 500 mg DAILY GTB Last administered on 03/15/19 09:08; Admin Dose 500 MG; Start 02/19/19 at 09:00 Aspirin (Aspirin) 81 mg DAILY GTB Last administered on 02/26/19 10:20; Admin Dose 81 MG; Start 02/19/19 at 09:00; Status Hold Atorvastatin Calcium (Lipitor) 40 mg QHS GTB Last administered on 03/14/19 20:28; Admin Dose 40 MG; Start 02/19/19 at 21:00 Folic Acid (Folic Acid) 1 mg DAILY GTB Last administered on 03/15/19 09:08; Admin Dose 1 MG; Start 02/19/19 at 09:00 Hydralazine HCl (Apresoline) 25 mg Q8 GTB Last administered on 03/15/19 15:20; Admin Dose 25 MG; Start 02/19/19 at 06:00 Linagliptin (Tradjenta) 5 mg DAILY GTB Last administered on 03/15/19 09:08; Admin Dose 5 MG; Start 02/19/19 at 09:00 Lorazepam (Ativan) 0.5 mg HS PRN GTB ANXIETY Last administered on 03/11/19 20:24; Admin Dose 0.5 MG; Start 02/19/19 at 03:30 Metoprolol Tartrate (Lopressor) 50 mg BID GTB Last administered on 03/15/19 09:08; Admin Dose 50 MG; Start 02/19/19 at 09:00 Ondansetron HCl (Zofran Tab) 4 mg Q4H PRN GTB NAUSEA AND/OR VOMITING; Start 02/19/19 at 03:30 Valproate Sodium (Depakene Liquid Cup) 250 mg Q8 GTB Last administered on 03/15/19 15:19; Admin Dose 250 MG; Start 02/19/19 at 06:00 Docusate Sodium (Colace Liquid Cup) 100 mg DAILY GTB Last administered on 03/15/19 09:07; Admin Dose 100 MG; Start 02/19/19 at 09:00 Docusate Sodium (Colace Liquid Cup) 100 mg Q12H PRN GTB CONSTIPATION; Start 02/19/19 at 04:00 Acetaminophen (Tylenol Tab) 650 mg Q6H PRN GTB .PAIN 1-3 OR TEMP Last administered on 03/09/19 10:13; Admin Dose 650 MG; Start 02/19/19 at 03:35 Mupirocin (Bactroban) 1 applic BID TOP Last administered on 03/15/19 09:08; Admin Dose 1 APPLIC; Start 02/22/19 at 14:00 Insulin Glargine (Lantus) 4 units DAILY@2000 SC Last administered on 03/14/19 20:40; Admin Dose 4 UNITS; Start 02/26/19 at 20:00 Epoetin Michael-epbx (Retacrit (Esrd)) 4,000 unit MoWeFr@1700 SC Last administered on 03/14/19 17:18; Admin Dose 4,000 UNIT; Start 02/28/19 at 17:00 Olanzapine (Zyprexa) 2.5 mg DAILY GTB Last administered on 03/15/19 09:07; Admin Dose 2.5 MG; Start 03/01/19 at 09:00 Lansoprazole (Prevacid) 30 mg BID@0600,1800 GTB Last administered on 03/15/19 17:29; Admin Dose 30 MG; Start 02/28/19 at 18:00 Ferrous Sulfate (Feosol Liquid Cup) 300 mg BID GTB Last administered on 03/15/19 09:07; Admin Dose 300 MG; Start 03/08/19 at 09:00 Heparin Sodium (Porcine) (Heparin (5000 Units/1ml)) 5,000 unit BID SC Last administered on 03/14/19at 20:39; Admin Dose 5,000 UNIT; Start 03/10/19 at 21:00 Albuterol/ Ipratropium (Duoneb) 3 ml Q4H RESP THERAPY HHN Last administered on 03/15/19at 16:47; Admin Dose 3 ML; Start 03/12/19 at 10:00 Albuterol/ Ipratropium (Duoneb) 3 ml Q2H RESP THERAPY PRN HHN SHORTNESS OF BREATH; Start 03/12/19 at 10:00 Meropenem/Sodium Chloride 50 ml @ 100 mls/hr Q24H IVPB Last administered on 03/15/19at 15:20; Admin Dose 100 MLS/HR; Start 03/12/19 at 14:00 Dextrose/Sodium Chloride 1,000 ml @ 40 mls/hr Q24H IV ; Start 03/13/19 at 14:30 Miscellaneous Information 1 ea NOTE XX ; Start 03/13/19 at 16:30 Glucose (Glutose) 15 gm Q15M PRN PO DECREASED GLUCOSE; Start 03/13/19 at 16:30 Glucose (Glutose) 22.5 gm Q15M PRN PO DECREASED GLUCOSE; Start 03/13/19 at 16:30 Dextrose (D50w Syringe) 25 ml Q15M PRN IV DECREASED GLUCOSE; Start 03/13/19 at 16:30 Dextrose (D50w Syringe) 50 ml Q15M PRN IV DECREASED GLUCOSE; Start 03/13/19 at 16:30 Glucagon (Glucagen) 1 mg Q15M PRN IM DECREASED GLUCOSE; Start 03/13/19 at 16:30 Glucose (Glutose) 15 gm Q15M PRN BUCCAL DECREASED GLUCOSE; Start 03/13/19 at 16:30 CHRISS WELCH MD March 15, 2019 18:25
[2019-03-15] MEDS: ATORVASTATIN 40 MG TAB GTB SCH (20:41)
[2019-03-15] MEDS: INSULIN GLARGINE [LANTus] (100 UNITS/ML) SYG SC SCH (20:52)
[2019-03-16] VITALS (25 sets, daily range): BP systolic 113–142; BP diastolic 45–62; PULSE 81–104; RESP 16–20
[2019-03-16] MEDS: ALBUTEROL/IPRATROPIUM (NEB) 3 ML AMP HHN SCH ×6 (00:52→20:55)
[2019-03-16] MEDS: LANSOPRAZOLE 30 MG CAP GTB SCH ×2 (05:17→18:49)
[2019-03-16] MEDS: VALPROIC ACID LIQUID CUP 250 MG/5 ML CUP GTB SCH ×3 (05:17→22:41)
[2019-03-16] MEDS: METOPROLOL 50 MG TAB GTB SCH ×2 (09:00→21:24)
[2019-03-16] MEDS: AMLODIPINE 5 MG TAB GTB SCH ×2 (09:00→21:24)
--- NOTE | 2019-03-16 09:05 | CONS ---
Assessment/Plan Assessment/Plan Hospital Course (Demo Recall) 83 yo female presented with severe anemia Interval hx: no signs of GI bleeding. Tolerating tube feeds. 1. Severe anemia,acute on chronic -likely due to chronic disease -retic 2.6, ferritin 4490, neg FOB (multiple FOB) 2. End-stage renal disease on dialysis. 3. Urinary tract infection. -positive yeast 4. Dysphagia, status post percutaneous endoscopic gastrostomy tube placement. 5. Hypertension. 6. Behavioral disorder. PLAN: Monitor HH Hold all anti coagulants PPI BID If GI bleeding, noted positive FOB, we will consider push endoscopy Pt examined and plan of care discussed with Dr. Baird. Consultation Date/Type/Reason Admit Date/Time Feb 19, 2019 at 01:01 Initial Consult Date Requesting Provider: JILLIAN HOLLAND MD Date/Time of Note DATE: 03/16/19 TIME: 09:03 Exam/Review of Systems Exam Vitals Vital Signs Date Temp Pulse Resp B/P (MAP) Pulse Ox O2 O2 Flow FiO2 Time Delivery Rate 03/16/19 95 08:11 03/16/19 98.9 20 120/56 99 07:37 (77) 03/16/19 Nasal 3.0 05:35 Cannula 03/13/19 40 07:45 Intake and Output 03/15/19 03/15/19 03/16/19 1515:00 23:00 07:00 IntakeIntake Total 680 ml 610 ml BalanceBalance 680 ml 610 ml Constitutional: alert Eyes: nl sclera, PERRL ENMT: mucosa pink and moist Respiratory: normal air movement Cardiovascular: regular rate and rhythm Gastrointestinal: soft, non-tender, bowel sounds Musculoskeletal: muscle weakness 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: confused Results Result Diagram: 03/15/19 0742 03/15/19 0615 Results 24hrs Laboratory Tests Test 03/15/19 09:06 03/15/19 12:00 03/15/19 20:37 03/16/19 04:16 Bedside Glucose 170 157 139 Blood Gas Specimen Blood arterial Source Arterial Blood 03/15/2019 12:45:20 Date Drawn PM Arterial Blood pH 7.463 H (Temp corrected) Arterial Blood 45.6 H pCO2 (Temp correct) Arterial Blood pO2 97.7 H (Temp corrected) Arterial Blood 31.9 H HCO3 Arterial Blood 7.3 H Base Excess Arterial Blood 97.5 Oxygen Saturation Mil Test ACCEPTAB Arterial Blood Gas Right Radial Puncture Site Arterial 0.2 Blood Carboxyhemog lobin Arterial Blood 0.3 Methemoglobin Blood Gas A-a O2 62.6 H Differential Oxyhemoglobin 97.0 Percent Blood Gas 37.0 Temperature Blood Gas Modality NASAL CANNULA FiO2 30.0 Blood Gas Notified TM Whom Blood Gas Notified 03/15/2019 12:55:02 Time PM Medications Medication Current Medications IV Flush (NS 3 ml) 3 ml PER PROTOCOL IV ; Start 02/19/19 at 03:30 Lorazepam (Ativan) 0.5 mg Q8H PRN GTB .ANXIETY Last administered on 03/14/19 01:15; Admin Dose 0.5 MG; Start 02/19/19 at 03:30 Ondansetron HCl (Zofran Inj) 4 mg Q6H PRN IV NAUSEA/VOMITING; Start 02/19/19 at 03:30 Acetaminophen (Tylenol Tab) 325 mg Q4H PRN GTB FOR FEVER 100AND ABOVE Last administered on 02/20/19 20:13; Admin Dose 325 MG; Start 02/19/19 at 03:30 Acetaminophen (Tylenol Tab) 650 mg Q6H PRN GTB PAIN LEVEL 1-10/10 Last administered on 03/11/19 12:12; Admin Dose 650 MG; Start 02/19/19 at 03:30 Amlodipine Besylate (Norvasc) 5 mg BID GTB Last administered on 03/15/19 20:41; Admin Dose 5 MG; Start 02/19/19 at 09:00 Ascorbic Acid (Vitamin C) 500 mg DAILY GTB Last administered on 03/15/19 09:08; Admin Dose 500 MG; Start 02/19/19 at 09:00 Aspirin (Aspirin) 81 mg DAILY GTB Last administered on 02/26/19 10:20; Admin Dose 81 MG; Start 02/19/19 at 09:00; Status Hold Atorvastatin Calcium (Lipitor) 40 mg QHS GTB Last administered on 03/15/19 20:41; Admin Dose 40 MG; Start 02/19/19 at 21:00 Folic Acid (Folic Acid) 1 mg DAILY GTB Last administered on 03/15/19 09:08; Admin Dose 1 MG; Start 02/19/19 at 09:00 Hydralazine HCl (Apresoline) 25 mg Q8 GTB Last administered on 03/16/19 05:17; Admin Dose 25 MG; Start 02/19/19 at 06:00 Linagliptin (Tradjenta) 5 mg DAILY GTB Last administered on 03/15/19 09:08; Admin Dose 5 MG; Start 02/19/19 at 09:00 Lorazepam (Ativan) 0.5 mg HS PRN GTB ANXIETY Last administered on 03/11/19 20:24; Admin Dose 0.5 MG; Start 02/19/19 at 03:30 Metoprolol Tartrate (Lopressor) 50 mg BID GTB Last administered on 03/15/19 20:42; Admin Dose 50 MG; Start 02/19/19 at 09:00 Ondansetron HCl (Zofran Tab) 4 mg Q4H PRN GTB NAUSEA AND/OR VOMITING; Start 02/19/19 at 03:30 Valproate Sodium (Depakene Liquid Cup) 250 mg Q8 GTB Last administered on 03/16/19 05:17; Admin Dose 250 MG; Start 02/19/19 at 06:00 Docusate Sodium (Colace Liquid Cup) 100 mg DAILY GTB Last administered on 03/15/19 09:07; Admin Dose 100 MG; Start 02/19/19 at 09:00 Docusate Sodium (Colace Liquid Cup) 100 mg Q12H PRN GTB CONSTIPATION; Start 02/19/19 at 04:00 Acetaminophen (Tylenol Tab) 650 mg Q6H PRN GTB .PAIN 1-3 OR TEMP Last administered on 03/09/19 10:13; Admin Dose 650 MG; Start 02/19/19 at 03:35 Mupirocin (Bactroban) 1 applic BID TOP Last administered on 03/15/19 20:53; Admin Dose 1 APPLIC; Start 02/22/19 at 14:00 Insulin Glargine (Lantus) 4 units DAILY@2000 SC Last administered on 03/15/19 20:52; Admin Dose 4 UNITS; Start 02/26/19 at 20:00 Epoetin Michael-epbx (Retacrit (Esrd)) 4,000 unit MoWeFr@1700 SC Last administered on 03/14/19 17:18; Admin Dose 4,000 UNIT; Start 02/28/19 at 17:00 Olanzapine (Zyprexa) 2.5 mg DAILY GTB Last administered on 03/15/19 09:07; Admin Dose 2.5 MG; Start 03/01/19 at 09:00 Lansoprazole (Prevacid) 30 mg BID@0600,1800 GTB Last administered on 03/16/19 05:17; Admin Dose 30 MG; Start 02/28/19 at 18:00 Ferrous Sulfate (Feosol Liquid Cup) 300 mg BID GTB Last administered on 03/15/19at 20:41; Admin Dose 300 MG; Start 03/08/19 at 09:00 Heparin Sodium (Porcine) (Heparin (5000 Units/1ml)) 5,000 unit BID SC Last administered on 03/15/19at 20:51; Admin Dose 5,000 UNIT; Start 03/10/19 at 21:00 Albuterol/ Ipratropium (Duoneb) 3 ml Q4H RESP THERAPY HHN Last administered on 03/16/19at 05:35; Admin Dose 3 ML; Start 03/12/19 at 10:00 Albuterol/ Ipratropium (Duoneb) 3 ml Q2H RESP THERAPY PRN HHN SHORTNESS OF BREATH; Start 03/12/19 at 10:00 Meropenem/Sodium Chloride 50 ml @ 100 mls/hr Q24H IVPB Last administered on 03/15/19at 15:20; Admin Dose 100 MLS/HR; Start 03/12/19 at 14:00 Dextrose/Sodium Chloride 1,000 ml @ 40 mls/hr Q24H IV ; Start 03/13/19 at 14:30 Miscellaneous Information 1 ea NOTE XX ; Start 03/13/19 at 16:30 Glucose (Glutose) 15 gm Q15M PRN PO DECREASED GLUCOSE; Start 03/13/19 at 16:30 Glucose (Glutose) 22.5 gm Q15M PRN PO DECREASED GLUCOSE; Start 03/13/19 at 16:30 Dextrose (D50w Syringe) 25 ml Q15M PRN IV DECREASED GLUCOSE; Start 03/13/19 at 16:30 Dextrose (D50w Syringe) 50 ml Q15M PRN IV DECREASED GLUCOSE; Start 03/13/19 at 16:30 Glucagon (Glucagen) 1 mg Q15M PRN IM DECREASED GLUCOSE; Start 03/13/19 at 16:30 Glucose (Glutose) 15 gm Q15M PRN BUCCAL DECREASED GLUCOSE; Start 03/13/19 at 16:30 TONY VENCES March 16, 2019 09:05
--- NOTE | 2019-03-16 09:10 | PN ---
DATE: 03/16/2019 SUBJECTIVE: The patient seen, appears to be comfortable, responsive, alert. Plan for dialysis today . No acute issues. PHYSICAL EXAMINATION: VITAL SIGNS: Temperature 98.9, pulse 95, respirations 20, blood pressure 120/56, saturation 99%. GENERAL: No acute distress. HEENT: Normocephalic, atraumatic. Pale, decreased dentition. CARDIOVASCULAR: S1, S2. LUNGS: Clear. ABDOMEN: Soft. G-tube in place. EXTREMITIES: Right upper extremity trace to +1 edema. LABORATORY DATA: White count 10.3, hemoglobin 9.4, hematocrit 29. This was yesterday. Last glucose of 129, 157 and 170. No other labs today. MEDICATIONS: Reviewed and include: 1. Hypoglycemia protocol. 2. Merrem 1 gram q.24h. 3. D5 and 46 continue that. 4. DuoNeb as directed. 5. Heparin 5000 b.i.d. 6. Ferrous sulfate 300 b.i.d. 7. Zyprexa 2.5 daily. 8. Prevacid 30 b.i.d. 9. Epogen as directed. 10. Lantus 4 units daily. 11. Bactroban ointment as directed. 12. Lipitor 40 at bedtime. 13. Norvasc 5 mg b.i.d. 14. Vitamin C 500 mg daily. 15. Folic acid daily. 16. Tradjenta 5 mg daily. 17. Metoprolol titrate 50 b.i.d. 18. . Hydralazine 25 q.8h. 19. Depakote 250 q.8h. 20. Colace at bedtime. ASSESSMENT AND PLAN: This is an 83-year-old unfortunate [place] female with history of end-stage re nal disease, vascular dementia, hypertension, diabetes mellitus, presented with fever, was found to h ave UTI, line sepsis, status post Perm-A-Cath and change, episode of respiratory failure, now on ant ibiotic for aspiration pneumonia. 1. Respiratory. Continue antibiotics, O2 support, breathing treatment as needed. Clinically stable . 2. Cardiovascular, on heparin for DVT prophylaxis, blood pressure control with above meds. 3. End-stage renal disease. Dialysis planned for today. Monitor electrolytes. 4. Anemia. Continue iron supplements Epogen and transfuse p.r.n. 5. No evidence of active bleeding. 6. Infectious disease. The patient is on Merrem for aspiration pneumonia. The patient is status po st treatment, treated with Cancidas for Dominique glabrata urinary tract infection. 7. Diabetes mellitus. Continue Tradjenta and low dose insulin. 8. Psychiatric disorder. Continue Zyprexa. 9. Dysphagia. G-tube feeding 30 mL an hour. 10. Patient is DO NOT RESUSCITATE/DO NOT INTUBATE. Awaiting placement. manager client support to assist. Aw ait response. Dictated By: DYLON HULL/MADAN Conf#: [id number] DID#: [id number]
[2019-03-16] MEDS: FERROUS SULFATE 60 MG/ML 5ML CUP GTB SCH ×2 (09:19→21:24)
[2019-03-16] MEDS: FOLIC ACID 1 MG TAB GTB SCH (09:19)
[2019-03-16] MEDS: DOCUSATE SODIUM 10 MG/ML (10ML CUP) GTB SCH (09:19)
[2019-03-16] MEDS: OLANZAPINE 2.5 MG TAB GTB SCH (09:19)
[2019-03-16] MEDS: MUPIROCIN 2% 22 GM OINT TOP SCH ×2 (09:20→21:25)
[2019-03-16] MEDS: ASCORBIC ACID 500 MG TAB GTB SCH (09:20)
[2019-03-16] MEDS: HEPARIN 5,000 UNIT/1 ML VIAL SC SCH ×2 (09:24→21:49)
[2019-03-16] MEDS: LINAGLIPTIN 5 MG TABLET GTB SCH (09:25)
[2019-03-16] MEDS ORDERED: HEPARIN 1000 UNITS/ML 10 ML INJ ONE (11:29)
--- NOTE | 2019-03-16 14:10 | CONS ---
Assessment/Plan Assessment/Plan Hospital Course (Demo Recall) Awak, looks comfortable, no fevers Antimicrobials: Meropenem Indwelling: Left subclavian permacath, PEG Microbiology: Urine culture on admission grew Dominique glabrata, blood culture grew Enterococcus Chest x-ray on admission revealed no definite evidence of pneumonia or CHF Physical examination: This is a chronically ill-appearing wasted elderly woman who is in no distress. Head atraumatic normocephalic. Neck is supple. Chest rise symmetrical patient is mildly tachypneic with expiratory wheezes. Heart: S1-S2, tachycardic. Abdomen soft bowel sounds present. Extremities without cyanosis edema. Assessment: 1. Acute hypoxemia possibly combination of aspiration and fluid overload 2. Status post recurrent UTI and bacteremia 4. End-stage renal disease, hemodialysis dependent 5. Anemia 6. 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 Plan: Remains stable, WBC normalized, continue antibiotics, aspiration precautions, f/u cxr in am Consultation Date/Type/Reason Admit Date/Time Feb 19, 2019 at 01:01 Initial Consult Date Type of Consult id Requesting Provider: JILLIAN HOLLAND MD Date/Time of Note DATE: 03/16/19 TIME: 14:09 Exam/Review of Systems Exam Vitals Vital Signs Date Temp Pulse Resp B/P (MAP) Pulse Ox O2 O2 Flow FiO2 Time Delivery Rate 03/16/19 85 20 97 21 13:48 03/16/19 98.3 123/50 11:26 (74) 03/16/19 Nasal 2.0 09:45 Cannula Intake and Output 03/15/19 03/15/19 03/16/19 1515:00 23:00 07:00 IntakeIntake Total 680 ml 610 ml BalanceBalance 680 ml 610 ml Results Result Diagram: 03/15/19 0742 03/15/19 0615 Results 24hrs Laboratory Tests Test 03/15/19 20:37 03/16/19 04:16 Bedside Glucose 157 139 Medications Medication Current Medications IV Flush (NS 3 ml) 3 ml PER PROTOCOL IV ; Start 02/19/19 at 03:30 Lorazepam (Ativan) 0.5 mg Q8H PRN GTB .ANXIETY Last administered on 03/14/19at 01:15; Admin Dose 0.5 MG; Start 02/19/19 at 03:30 Ondansetron HCl (Zofran Inj) 4 mg Q6H PRN IV NAUSEA/VOMITING; Start 02/19/19 at 03:30 Acetaminophen (Tylenol Tab) 325 mg Q4H PRN GTB FOR FEVER 100AND ABOVE Last administered on 02/20/19 20:13; Admin Dose 325 MG; Start 02/19/19 at 03:30 Acetaminophen (Tylenol Tab) 650 mg Q6H PRN GTB PAIN LEVEL 1-10/10 Last administered on 03/11/19 12:12; Admin Dose 650 MG; Start 02/19/19 at 03:30 Amlodipine Besylate (Norvasc) 5 mg BID GTB Last administered on 03/15/19 20:41; Admin Dose 5 MG; Start 02/19/19 at 09:00 Ascorbic Acid (Vitamin C) 500 mg DAILY GTB Last administered on 03/16/19 09:20; Admin Dose 500 MG; Start 02/19/19 at 09:00 Aspirin (Aspirin) 81 mg DAILY GTB Last administered on 02/26/19 10:20; Admin Dose 81 MG; Start 02/19/19 at 09:00; Status Hold Atorvastatin Calcium (Lipitor) 40 mg QHS GTB Last administered on 03/15/19 20:41; Admin Dose 40 MG; Start 02/19/19 at 21:00 Folic Acid (Folic Acid) 1 mg DAILY GTB Last administered on 03/16/19 09:19; Admin Dose 1 MG; Start 02/19/19 at 09:00 Hydralazine HCl (Apresoline) 25 mg Q8 GTB Last administered on 03/16/19 05:17; Admin Dose 25 MG; Start 02/19/19 at 06:00 Linagliptin (Tradjenta) 5 mg DAILY GTB Last administered on 03/16/19 09:25; Admin Dose 5 MG; Start 02/19/19 at 09:00 Lorazepam (Ativan) 0.5 mg HS PRN GTB ANXIETY Last administered on 03/11/19 20:24; Admin Dose 0.5 MG; Start 02/19/19 at 03:30 Metoprolol Tartrate (Lopressor) 50 mg BID GTB Last administered on 03/15/19 20:42; Admin Dose 50 MG; Start 02/19/19 at 09:00 Ondansetron HCl (Zofran Tab) 4 mg Q4H PRN GTB NAUSEA AND/OR VOMITING; Start 02/19/19 at 03:30 Valproate Sodium (Depakene Liquid Cup) 250 mg Q8 GTB Last administered on 05:17; Admin Dose 250 MG; Start 02/19/19 at 06:00 Docusate Sodium (Colace Liquid Cup) 100 mg DAILY GTB Last administered on 03/16/19 09:19; Admin Dose 100 MG; Start 02/19/19 at 09:00 Docusate Sodium (Colace Liquid Cup) 100 mg Q12H PRN GTB CONSTIPATION; Start 02/19/19 at 04:00 Acetaminophen (Tylenol Tab) 650 mg Q6H PRN GTB .PAIN 1-3 OR TEMP Last administered on 03/09/19 10:13; Admin Dose 650 MG; Start 02/19/19 at 03:35 Mupirocin (Bactroban) 1 applic BID TOP Last administered on 03/16/19 09:20; Admin Dose 1 APPLIC; Start 02/22/19 at 14:00 Insulin Glargine (Lantus) 4 units DAILY@2000 SC Last administered on 03/15/19 20:52; Admin Dose 4 UNITS; Start 02/26/19 at 20:00 Epoetin Michael-epbx (Retacrit (Esrd)) 4,000 unit MoWeFr@1700 SC Last administered on 03/14/19 17:18; Admin Dose 4,000 UNIT; Start 02/28/19 at 17:00 Olanzapine (Zyprexa) 2.5 mg DAILY GTB Last administered on 03/16/19 09:19; Admin Dose 2.5 MG; Start 03/01/19 at 09:00 Lansoprazole (Prevacid) 30 mg BID@0600,1800 GTB Last administered on 03/16/19 05:17; Admin Dose 30 MG; Start 02/28/19 at 18:00 Ferrous Sulfate (Feosol Liquid Cup) 300 mg BID GTB Last administered on 03/16/19 09:19; Admin Dose 300 MG; Start 03/08/19 at 09:00 Heparin Sodium (Porcine) (Heparin (5000 Units/1ml)) 5,000 unit BID SC Last administered on 5/8/19at 09:24; Admin Dose 5,000 UNIT; Start 03/10/19 at 21:00 Albuterol/ Ipratropium (Duoneb) 3 ml Q4H RESP THERAPY HHN Last administered on 03/16/19at 13:47; Admin Dose 3 ML; Start 03/12/19 at 10:00 Albuterol/ Ipratropium (Duoneb) 3 ml Q2H RESP THERAPY PRN HHN SHORTNESS OF BREATH; Start 03/12/19 at 10:00 Meropenem/Sodium Chloride 50 ml @ 100 mls/hr Q24H IVPB Last administered on 03/15/19at 15:20; Admin Dose 100 MLS/HR; Start 03/12/19 at 14:00 Dextrose/Sodium Chloride 1,000 ml @ 40 mls/hr Q24H IV ; Start 03/13/19 at 14:30 Miscellaneous Information 1 ea NOTE XX ; Start 03/13/19 at 16:30 Glucose (Glutose) 15 gm Q15M PRN PO DECREASED GLUCOSE; Start 03/13/19 at 16:30 Glucose (Glutose) 22.5 gm Q15M PRN PO DECREASED GLUCOSE; Start 03/13/19 at 16:30 Dextrose (D50w Syringe) 25 ml Q15M PRN IV DECREASED GLUCOSE; Start 03/13/19 at 16:30 Dextrose (D50w Syringe) 50 ml Q15M PRN IV DECREASED GLUCOSE; Start 03/13/19 at 16:30 Glucagon (Glucagen) 1 mg Q15M PRN IM DECREASED GLUCOSE; Start 03/13/19 at 16:30 Glucose (Glutose) 15 gm Q15M PRN BUCCAL DECREASED GLUCOSE; Start 03/13/19 at 16:30 PHYLICIA HOLCOMB NP March 16, 2019 14:10
[2019-03-16] MEDS: MEROPENEM 500MG/50 ML (PMX) 50 ML IVPB SCH (14:27)
--- NOTE | 2019-03-16 14:28 | CONS ---
Assessment/Plan Assessment/Plan Assessment/Plan (Daily) Fevers, likely secondary to urinary tract infection, now bld cx positive gram + Enterococcus 2. End-stage renal disease on hemodialysis. 3. Urinary tract infection. 4. Hypertension. 5. Dementia. 6. Diabetes mellitus type II. 7. Diastolic heart failure. 8. Moderate protein energy malnutrition with cachexia. 9. Osteoarthritis. 10. GT status 11. Anemia of chronic disease 12. REsp failure, On BIPAP Assessment/Plan (Daily) -c/w HD, MWFR, hd today - will get ABG to check for co2 levels given AMS - Replete phos -c/w epoetin 3 times a week Consultation Date/Type/Reason Admit Date/Time Feb 19, 2019 at 01:01 Initial Consult Date Requesting Provider: JILLIAN HOLLAND MD Date/Time of Note DATE: 03/16/19 TIME: 14:28 24 HR Interval Summary Free Text/Dictation hd today Exam/Review of Systems Exam Vitals Vital Signs Date Temp Pulse Resp B/P (MAP) Pulse Ox O2 O2 Flow FiO2 Time Delivery Rate 03/16/19 85 20 97 21 13:48 03/16/19 98.3 123/50 11:26 (74) 03/16/19 Nasal 2.0 09:45 Cannula Intake and Output 03/15/19 03/15/19 03/16/19 1515:00 23:00 07:00 IntakeIntake Total 680 ml 610 ml BalanceBalance 680 ml 610 ml Exam pt awake,alert permcath Results Result Diagram: 03/15/19 0742 03/15/19 0615 Results 24hrs Laboratory Tests Test 03/15/19 20:37 03/16/19 04:16 Bedside Glucose 157 139 Medications Medication Current Medications IV Flush (NS 3 ml) 3 ml PER PROTOCOL IV ; Start 02/19/19 at 03:30 Lorazepam (Ativan) 0.5 mg Q8H PRN GTB .ANXIETY Last administered on 03/14/19at 01:15; Admin Dose 0.5 MG; Start 02/19/19 at 03:30 Ondansetron HCl (Zofran Inj) 4 mg Q6H PRN IV NAUSEA/VOMITING; Start 02/19/19 at 03:30 Acetaminophen (Tylenol Tab) 325 mg Q4H PRN GTB FOR FEVER 100AND ABOVE Last administered on 02/20/19 20:13; Admin Dose 325 MG; Start 02/19/19 at 03:30 Acetaminophen (Tylenol Tab) 650 mg Q6H PRN GTB PAIN LEVEL 1-08/18 Last administered on 03/11/19 12:12; Admin Dose 650 MG; Start 02/19/19 at 03:30 Amlodipine Besylate (Norvasc) 5 mg BID GTB Last administered on 03/15/19 20:41; Admin Dose 5 MG; Start 02/19/19 at 09:00 Ascorbic Acid (Vitamin C) 500 mg DAILY GTB Last administered on 03/16/19 09:20; Admin Dose 500 MG; Start 02/19/19 at 09:00 Aspirin (Aspirin) 81 mg DAILY GTB Last administered on 02/26/19 10:20; Admin Dose 81 MG; Start 02/19/19 at 09:00; Status Hold Atorvastatin Calcium (Lipitor) 40 mg QHS GTB Last administered on 03/15/19 20:41; Admin Dose 40 MG; Start 02/19/19 at 21:00 Folic Acid (Folic Acid) 1 mg DAILY GTB Last administered on 03/16/19 09:19; Admin Dose 1 MG; Start 02/19/19 at 09:00 Hydralazine HCl (Apresoline) 25 mg Q8 GTB Last administered on 03/16/19 05:17; Admin Dose 25 MG; Start 02/19/19 at 06:00 Linagliptin (Tradjenta) 5 mg DAILY GTB Last administered on 03/16/19 09:25; Admin Dose 5 MG; Start 02/19/19 at 09:00 Lorazepam (Ativan) 0.5 mg HS PRN GTB ANXIETY Last administered on 03/11/19 20:24; Admin Dose 0.5 MG; Start 02/19/19 at 03:30 Metoprolol Tartrate (Lopressor) 50 mg BID GTB Last administered on 03/15/19 20:42; Admin Dose 50 MG; Start 02/19/19 at 09:00 Ondansetron HCl (Zofran Tab) 4 mg Q4H PRN GTB NAUSEA AND/OR VOMITING; Start 02/19/19 at 03:30 Valproate Sodium (Depakene Liquid Cup) 250 mg Q8 GTB Last administered on 9at 05:17; Admin Dose 250 MG; Start 02/19/19 at 06:00 Docusate Sodium (Colace Liquid Cup) 100 mg DAILY GTB Last administered on 03/16/19 09:19; Admin Dose 100 MG; Start 02/19/19 at 09:00 Docusate Sodium (Colace Liquid Cup) 100 mg Q12H PRN GTB CONSTIPATION; Start 02/19/19 at 04:00 Acetaminophen (Tylenol Tab) 650 mg Q6H PRN GTB .PAIN 1-3 OR TEMP Last administered on 03/09/19 10:13; Admin Dose 650 MG; Start 02/19/19 at 03:35 Mupirocin (Bactroban) 1 applic BID TOP Last administered on 03/16/19 09:20; Admin Dose 1 APPLIC; Start 02/22/19 at 14:00 Insulin Glargine (Lantus) 4 units DAILY@2000 SC Last administered on 03/15/19 20:52; Admin Dose 4 UNITS; Start 02/26/19 at 20:00 Epoetin Michael-epbx (Retacrit (Esrd)) 4,000 unit MoWeFr@1700 SC Last administered on 03/14/19 17:18; Admin Dose 4,000 UNIT; Start 02/28/19 at 17:00 Olanzapine (Zyprexa) 2.5 mg DAILY GTB Last administered on 03/16/19 09:19; Admin Dose 2.5 MG; Start 03/01/19 at 09:00 Lansoprazole (Prevacid) 30 mg BID@0600,1800 GTB Last administered on 03/16/19 05:17; Admin Dose 30 MG; Start 02/28/19 at 18:00 Ferrous Sulfate (Feosol Liquid Cup) 300 mg BID GTB Last administered on 03/16/19 09:19; Admin Dose 300 MG; Start 03/08/19 at 09:00 Heparin Sodium (Porcine) (Heparin (5000 Units/1ml)) 5,000 unit BID SC Last administered on 03/16/19 09:24; Admin Dose 5,000 UNIT; Start 03/10/19 at 21:00 Albuterol/ Ipratropium (Duoneb) 3 ml Q4H RESP THERAPY HHN Last administered on 03/16/19at 13:47; Admin Dose 3 ML; Start 03/12/19 at 10:00 Albuterol/ Ipratropium (Duoneb) 3 ml Q2H RESP THERAPY PRN HHN SHORTNESS OF BREATH; Start 03/12/19 at 10:00 Meropenem/Sodium Chloride 50 ml @ 100 mls/hr Q24H IVPB Last administered on 03/15/19at 15:20; Admin Dose 100 MLS/HR; Start 03/12/19 at 14:00 Dextrose/Sodium Chloride 1,000 ml @ 40 mls/hr Q24H IV ; Start 03/13/19 at 14:30 Miscellaneous Information 1 ea NOTE XX ; Start 03/13/19 at 16:30 Glucose (Glutose) 15 gm Q15M PRN PO DECREASED GLUCOSE; Start 03/13/19 at 16:30 Glucose (Glutose) 22.5 gm Q15M PRN PO DECREASED GLUCOSE; Start 03/13/19 at 16:30 Dextrose (D50w Syringe) 25 ml Q15M PRN IV DECREASED GLUCOSE; Start 03/13/19 at 16:30 Dextrose (D50w Syringe) 50 ml Q15M PRN IV DECREASED GLUCOSE; Start 03/13/19 at 16:30 Glucagon (Glucagen) 1 mg Q15M PRN IM DECREASED GLUCOSE; Start 03/13/19 at 16:30 Glucose (Glutose) 15 gm Q15M PRN BUCCAL DECREASED GLUCOSE; Start 03/13/19 at 16:30 JOSE RAUL ANDREWS MD March 16, 2019 14:28
[2019-03-16] MEDS: DEXTROSE 5%-0.9% NACL 1,000 ML IV SCH (17:20)
[2019-03-16] MEDS: EPOETIN ALFA-EPBX (ESRD) 4,000 UNIT/ML VIAL SC SCH (17:20)
[2019-03-16] MEDS: INSULIN GLARGINE [LANTus] (100 UNITS/ML) SYG SC SCH (21:18)
[2019-03-16] MEDS: ATORVASTATIN 40 MG TAB GTB SCH (21:23)
[2019-03-16] MEDS: LORAZEPAM 0.5 MG TAB GTB PRN (21:23)
[2019-03-17] VITALS (12 sets, daily range): BP systolic 123–155; BP diastolic 57–77; PULSE 79–93; RESP 18–20
[2019-03-17] MEDS: ALBUTEROL/IPRATROPIUM (NEB) 3 ML AMP HHN SCH ×6 (01:29→20:31)
[2019-03-17] MEDS: VALPROIC ACID LIQUID CUP 250 MG/5 ML CUP GTB SCH ×3 (06:41→21:54)
[2019-03-17] MEDS: LANSOPRAZOLE 30 MG CAP GTB SCH ×2 (06:49→17:14)
[2019-03-17] MEDS: AMLODIPINE 5 MG TAB GTB SCH ×2 (09:07→21:55)
[2019-03-17] MEDS: DOCUSATE SODIUM 10 MG/ML (10ML CUP) GTB SCH (09:07)
[2019-03-17] MEDS: FERROUS SULFATE 60 MG/ML 5ML CUP GTB SCH ×2 (09:07→21:54)
[2019-03-17] MEDS: METOPROLOL 50 MG TAB GTB SCH ×2 (09:08→21:56)
[2019-03-17] MEDS: ASCORBIC ACID 500 MG TAB GTB SCH (09:08)
[2019-03-17] MEDS: LINAGLIPTIN 5 MG TABLET GTB SCH (09:09)
[2019-03-17] MEDS: MUPIROCIN 2% 22 GM OINT TOP SCH ×2 (09:11→21:56)
[2019-03-17] MEDS: FOLIC ACID 1 MG TAB GTB SCH (09:15)
[2019-03-17] MEDS: OLANZAPINE 2.5 MG TAB GTB SCH (09:15)
[2019-03-17] MEDS: HEPARIN 5,000 UNIT/1 ML VIAL SC SCH (09:22)
[2019-03-17] MEDS ORDERED: FUROSEMIDE 20 MG INJ IV ONE (11:30)
--- NOTE | 2019-03-17 12:35 | CONS ---
Assessment/Plan Assessment/Plan Hospital Course (Demo Recall) No events, no fevers, looks comfortable Antimicrobials: Meropenem Indwelling: Left subclavian permacath, PEG Microbiology: Urine culture on admission grew Dominique glabrata, blood culture grew Enterococcus Chest x-ray on admission revealed no definite evidence of pneumonia or CHF Physical examination: This is a chronically ill-appearing wasted elderly woman who is in no distress. Head atraumatic normocephalic. Neck is supple. Chest rise symmetrical patient is mildly tachypneic with expiratory wheezes. Heart: S1-S2, tachycardic. Abdomen soft bowel sounds present. Extremities without cyanosis edema. Assessment: 1. Acute hypoxemia ==> combination of aspiration and fluid overload 2. Status post recurrent UTI and bacteremia 4. End-stage renal disease, hemodialysis dependent 5. Anemia 6. 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 Plan: Remains stable, cxr noted, WBC normalized, continue antibiotics, aspiration precautions Consultation Date/Type/Reason Admit Date/Time Feb 19, 2019 at 01:01 Initial Consult Date Type of Consult id Requesting Provider: JOSE RAUL ANDREWS MD Date/Time of Note DATE: 03/17/19 TIME: 12:34 Exam/Review of Systems Exam Vitals Vital Signs Date Temp Pulse Resp B/P (MAP) Pulse Ox O2 O2 Flow FiO2 Time Delivery Rate 03/17/19 98.2 79 19 155/77 96 11:37 (103) 03/17/19 Nasal 3.0 10:02 Cannula 03/17/19 21 05:29 Intake and Output 03/16/19 03/16/19 03/17/19 1515:00 23:00 07:00 IntakeIntake Total 610 ml 560 ml OutputOutput Total 2500 ml BalanceBalance -2500 ml 610 ml 560 ml Results Result Diagram: 03/17/19 0604 03/17/19 0604 Results 24hrs Laboratory Tests Test 03/16/19 21:05 03/17/19 06:04 03/17/19 09:10 Bedside Glucose 166 166 White Blood Count 7.9 # Red Blood Count 2.97 L Hemoglobin 8.1 L Hematocrit 25.5 L Mean Corpuscular Volume 85.9 Mean Corpuscular Hemoglobin 27.3 L Mean Corpuscular Hemoglobin Concent 31.8 L Red Cell Distribution Width 17.1 H Platelet Count 216 Mean Platelet Volume 11.0 H Immature Granulocytes % 2.200 H Neutrophils % 66.8 Lymphocytes % 12.1 L Monocytes % 12.6 H Eosinophils % 5.9 Basophils % 0.4 Nucleated Red Blood Cells % 1.5 H Immature Granulocytes # 0.170 H Neutrophils # 5.3 Lymphocytes # 1.0 Monocytes # 1.0 H Eosinophils # 0.5 Basophils # 0.0 Nucleated Red Blood Cells # 0.1 H Sodium Level 138 Potassium Level 3.6 Chloride Level 103 Carbon Dioxide Level 29 Anion Gap 6 Blood Urea Nitrogen 33 H Creatinine 1.36 H Est Glomerular Filtrat Rate mL/min Glucose Level 144 Calcium Level 8.2 L Phosphorus Level 2.7 Magnesium Level 2.1 Medications Medication Current Medications IV Flush (NS 3 ml) 3 ml PER PROTOCOL IV ; Start 02/19/19 at 03:30 Lorazepam (Ativan) 0.5 mg Q8H PRN GTB .ANXIETY Last administered on 03/14/19 01:15; Admin Dose 0.5 MG; Start 02/19/19 at 03:30 Ondansetron HCl (Zofran Inj) 4 mg Q6H PRN IV NAUSEA/VOMITING; Start 02/19/19 at 03:30 Acetaminophen (Tylenol Tab) 325 mg Q4H PRN GTB FOR FEVER 100AND ABOVE Last administered on 02/20/19 20:13; Admin Dose 325 MG; Start 02/19/19 at 03:30 Acetaminophen (Tylenol Tab) 650 mg Q6H PRN GTB PAIN LEVEL 1-10/10 Last administered on 03/11/19 12:12; Admin Dose 650 MG; Start 02/19/19 at 03:30 Amlodipine Besylate (Norvasc) 5 mg BID GTB Last administered on 03/17/19 09:07; Admin Dose 5 MG; Start 02/19/19 at 09:00 Ascorbic Acid (Vitamin C) 500 mg DAILY GTB Last administered on 03/17/19 09:08; Admin Dose 500 MG; Start 02/19/19 at 09:00 Aspirin (Aspirin) 81 mg DAILY GTB Last administered on 02/26/19 10:20; Admin Dose 81 MG; Start 02/19/19 at 09:00; Status Hold Atorvastatin Calcium (Lipitor) 40 mg QHS GTB Last administered on 03/16/19 21:23; Admin Dose 40 MG; Start 02/19/19 at 21:00 Folic Acid (Folic Acid) 1 mg DAILY GTB Last administered on 03/17/19 09:15; Admin Dose 1 MG; Start 02/19/19 at 09:00 Hydralazine HCl (Apresoline) 25 mg Q8 GTB Last administered on 03/17/19 06:41; Admin Dose 25 MG; Start 02/19/19 at 06:00 Linagliptin (Tradjenta) 5 mg DAILY GTB Last administered on 03/17/19 09:09; Admin Dose 5 MG; Start 02/19/19 at 09:00 Lorazepam (Ativan) 0.5 mg HS PRN GTB ANXIETY Last administered on 03/16/19 21:23; Admin Dose 0.5 MG; Start 02/19/19 at 03:30 Metoprolol Tartrate (Lopressor) 50 mg BID GTB Last administered on 03/17/19 09:08; Admin Dose 50 MG; Start 02/19/19 at 09:00 Ondansetron HCl (Zofran Tab) 4 mg Q4H PRN GTB NAUSEA AND/OR VOMITING; Start 02/19/19 at 03:30 Valproate Sodium (Depakene Liquid Cup) 250 mg Q8 GTB Last administered on 03/17/19 06:41; Admin Dose 250 MG; Start 02/19/19 at 06:00 Docusate Sodium (Colace Liquid Cup) 100 mg DAILY GTB Last administered on 03/17/19 09:07; Admin Dose 100 MG; Start 02/19/19 at 09:00 Docusate Sodium (Colace Liquid Cup) 100 mg Q12H PRN GTB CONSTIPATION; Start 02/19/19 at 04:00 Acetaminophen (Tylenol Tab) 650 mg Q6H PRN GTB .PAIN 1-3 OR TEMP Last administered on 03/09/19 10:13; Admin Dose 650 MG; Start 02/19/19 at 03:35 Mupirocin (Bactroban) 1 applic BID TOP Last administered on 03/17/19 09:11; Admin Dose 1 APPLIC; Start 02/22/19 at 14:00 Insulin Glargine (Lantus) 4 units DAILY@2000 SC Last administered on 5/8/19at 21:18; Admin Dose 4 UNITS; Start 02/26/19 at 20:00 Epoetin Michael-epbx (Retacrit (Esrd)) 4,000 unit MoWeFr@1700 SC Last administered on 03/16/19at 17:20; Admin Dose 4,000 UNIT; Start 02/28/19 at 17:00 Olanzapine (Zyprexa) 2.5 mg DAILY GTB Last administered on 03/17/19at 09:15; Admin Dose 2.5 MG; Start 03/01/19 at 09:00 Lansoprazole (Prevacid) 30 mg BID@0600,1800 GTB Last administered on 03/17/19at 06:49; Admin Dose 30 MG; Start 02/28/19 at 18:00 Ferrous Sulfate (Feosol Liquid Cup) 300 mg BID GTB Last administered on 03/17/19at 09:07; Admin Dose 300 MG; Start 03/08/19 at 09:00 Albuterol/ Ipratropium (Duoneb) 3 ml Q4H RESP THERAPY HHN Last administered on 03/17/19at 05:29; Admin Dose 3 ML; Start 03/12/19 at 10:00 Albuterol/ Ipratropium (Duoneb) 3 ml Q2H RESP THERAPY PRN HHN SHORTNESS OF BREATH; Start 03/12/19 at 10:00 Meropenem/Sodium Chloride 50 ml @ 100 mls/hr Q24H IVPB Last administered on 03/16/19at 14:27; Admin Dose 100 MLS/HR; Start 03/12/19 at 14:00 Miscellaneous Information 1 ea NOTE XX ; Start 03/13/19 at 16:30 Glucose (Glutose) 15 gm Q15M PRN PO DECREASED GLUCOSE; Start 03/13/19 at 16:30 Glucose (Glutose) 22.5 gm Q15M PRN PO DECREASED GLUCOSE; Start 03/13/19 at 16:30 Dextrose (D50w Syringe) 25 ml Q15M PRN IV DECREASED GLUCOSE; Start 03/13/19 at 16:30 Dextrose (D50w Syringe) 50 ml Q15M PRN IV DECREASED GLUCOSE; Start 03/13/19 at 16:30 Glucagon (Glucagen) 1 mg Q15M PRN IM DECREASED GLUCOSE; Start 03/13/19 at 16:30 Glucose (Glutose) 15 gm Q15M PRN BUCCAL DECREASED GLUCOSE; Start 03/13/19 at 16:30 PHYLICIA HOLCOMB NP March 17, 2019 12:35
--- NOTE | 2019-03-17 13:29 | PN ---
DATE: 03/17/2019 SUBJECTIVE: The patient was seen, appears to be comfortable off restraints but on close monitoring w ith fall precautions. The patient is tolerating G-tube feeding well. Unfortunately, hemoglobin drop ped from 9.4 to 8.1. We will hold heparin and continue to monitor. For any further drop, may need a nother unit of PRBC and continue PPI on a regular basis. [employer] is assisting with placement. PHYSICAL EXAMINATION: VITAL SIGNS: Temperature 98.1, pulse 91, respiration 18, blood pressure 123/68, saturation is 97% on 3-liter nasal cannula. GENERAL: No acute distress. HEENT: The patient is frail, pale. CARDIOVASCULAR: S1, S2. Regular rate. LUNGS: Clear. Left upper IJ PermCath. ABDOMEN: Soft. G-tube in place. EXTREMITIES: Trace edema in upper extremities, right greater than left. LABORATORY DATA: White count is 7.9, hemoglobin dropped to 8.1, hematocrit 26, platelet count of 216 , neutrophils 67%, lymphs 12%. Chemistry: Sodium 138, potassium 3.6, chloride 103, bicarbonate 29, BUN 33, creatinine 1.36 and glucose of 144. MICROBIOLOGY: Blood cultures are negative. Urine culture shows Dominique glabrata on 03/02/2019. DIAGNOSTIC DATA: Chest x-ray on 03/17/2019 showed increased left suprahilar hazy opacification may r eflect pneumonia given history, mild interstitial prominence may be acute or chronic in nature, pulmo nary congestion may be considered, small left pleural effusion and large hyperinflation may lead to g ood inspiratory exertion, although COPD and emphysema may be considered. MEDICATIONS: Include: 1. Hypoglycemia protocol. 2. Merrem as directed. 3. DuoNeb as directed. 4. The patient appears to be still on D5 half normal. We will discontinue that. 5. Ferrous sulfate 300 b.i.d. 6. Zyprexa 2.5 daily. 7. Prevacid 30 mg b.i.d. 8. Epogen as directed. 9. Lantus 4 units daily. 10. Bactroban as directed. 11. Lipitor 40 at bedtime. 12. Norvasc 5 mg b.i.d. 13. Vitamin C as directed. 14. Folic acid 1 mg daily. 15. Tradjenta 5 mg daily. 16. Lopressor 50 b.i.d. 17. Colace as directed. 18. Hydralazine as directed. 19. Depakote as directed. 20. Tylenol as directed. ASSESSMENT AND PLAN: This is an 83-year-old unfortunate [place]ese female with history of end-stage re nal disease, vascular dementia, hypertension, diabetes mellitus, who presented with fever, was found to have urinary tract infection, line sepsis, status post PermCath exchange who had a recurrent episo de of respiratory failure likely due to aspiration pneumonia. 1. Respiratory: The patient is finishing course of antibiotics. Chest x-ray was done and as above. 2. Cardiovascular: Chest x-ray also suggests pulmonary edema. May consider a dose of Lasix. Disco ntinue IV fluids. 3. Anemia. Monitor hemoglobin and hematocrit. This may be hemodilution. Follow up H and H tomorro w. Transfuse p.r.n. Hold heparin for now. Anemia, on Epogen transfusion p.r.n. and iron supplement s are being given. No evidence of active bleeding. 4. Infectious disease: On Merrem for pneumonia, status post treatment with Cancidas for Dominique gla brata. 5. Diabetes mellitus, controlled with Tradjenta and low dose insulin. 6. Psychiatric disorder on Zyprexa. 7. Continue aspiration precaution, fall precautions. 8. Dysphagia on G-tube feeding at 30 mL an hour, tolerating it well. 9. The patient is DNR. [employer] is assisting with placement. We will follow. Dictated By: DYLON HULL/MADAN Conf#: [id number] DID#: [id number] CC: JOSE RAUL ANDREWS;*EndCC*
[2019-03-17] MEDS: MEROPENEM 500MG/50 ML (PMX) 50 ML IVPB SCH (14:14)
--- NOTE | 2019-03-17 15:22 | CONS ---
Assessment/Plan Assessment/Plan Assessment/Plan (Daily) 1 Fevers, likely secondary to urinary tract infection, now bld cx positive gram + Enterococcus 2. End-stage renal disease on hemodialysis.with sob due to pna/fluid 3. Urinary tract infection. 4. Hypertension. 5. Dementia. 6. Diabetes mellitus type II. 7. Diastolic heart failure. 8. Moderate protein energy malnutrition with cachexia. 9. Osteoarthritis. 10. GT status 11. Anemia of chronic disease 12. REsp failure, On BIPAP reoslved Assessment/Plan (Daily) -c/w HD, MWFR, hd tmw, will try to remove little more UF - gentle dose of lasix will not help in HD pt -c/w epoetin 3 times a week Consultation Date/Type/Reason Admit Date/Time Feb 19, 2019 at 01:01 Initial Consult Date Requesting Provider: JOSE RAUL ANDREWS MD Date/Time of Note DATE: 03/17/19 TIME: 15:22 24 HR Interval Summary Free Text/Dictation no new events pt awake,alert Exam/Review of Systems Exam Vitals Vital Signs Date Temp Pulse Resp B/P (MAP) Pulse Ox O2 O2 Flow FiO2 Time Delivery Rate 03/17/19 94 21 14:28 03/17/19 87 20 14:27 03/17/19 98.2 155/77 11:37 (103) 03/17/19 Nasal 3.0 10:02 Cannula Intake and Output 03/16/19 03/16/19 03/17/19 1515:00 23:00 07:00 IntakeIntake Total 610 ml 560 ml OutputOutput Total 2500 ml BalanceBalance -2500 ml 610 ml 560 ml Exam pt awake,alert permcath dec breath sounds bases Results Result Diagram: 03/17/19 0604 03/17/19 0604 Results 24hrs Laboratory Tests Test 03/16/19 21:05 03/17/19 06:04 03/17/19 09:10 Bedside Glucose 166 166 White Blood Count 7.9 # Red Blood Count 2.97 L Hemoglobin 8.1 L Hematocrit 25.5 L Mean Corpuscular Volume 85.9 Mean Corpuscular Hemoglobin 27.3 L Mean Corpuscular Hemoglobin Concent 31.8 L Red Cell Distribution Width 17.1 H Platelet Count 216 Mean Platelet Volume 11.0 H Immature Granulocytes % 2.200 H Neutrophils % 66.8 Lymphocytes % 12.1 L Monocytes % 12.6 H Eosinophils % 5.9 Basophils % 0.4 Nucleated Red Blood Cells % 1.5 H Immature Granulocytes # 0.170 H Neutrophils # 5.3 Lymphocytes # 1.0 Monocytes # 1.0 H Eosinophils # 0.5 Basophils # 0.0 Nucleated Red Blood Cells # 0.1 H Sodium Level 138 Potassium Level 3.6 Chloride Level 103 Carbon Dioxide Level 29 Anion Gap 6 Blood Urea Nitrogen 33 H Creatinine 1.36 H Est Glomerular Filtrat Rate mL/min Glucose Level 144 Calcium Level 8.2 L Phosphorus Level 2.7 Magnesium Level 2.1 Medications Medication Current Medications IV Flush (NS 3 ml) 3 ml PER PROTOCOL IV ; Start 02/19/19 at 03:30 Lorazepam (Ativan) 0.5 mg Q8H PRN GTB .ANXIETY Last administered on 03/14/19 01:15; Admin Dose 0.5 MG; Start 02/19/19 at 03:30 Ondansetron HCl (Zofran Inj) 4 mg Q6H PRN IV NAUSEA/VOMITING; Start 02/19/19 at 03:30 Acetaminophen (Tylenol Tab) 325 mg Q4H PRN GTB FOR FEVER 100AND ABOVE Last adm inistered on 02/20/19 20:13; Admin Dose 325 MG; Start 02/19/19 at 03:30 Acetaminophen (Tylenol Tab) 650 mg Q6H PRN GTB PAIN LEVEL 1-10/10 Last administered on 03/11/19 12:12; Admin Dose 650 MG; Start 02/19/19 at 03:30 Amlodipine Besylate (Norvasc) 5 mg BID GTB Last administered on 03/17/19 09:07; Admin Dose 5 MG; Start 02/19/19 at 09:00 Ascorbic Acid (Vitamin C) 500 mg DAILY GTB Last administered on 03/17/19 09:08; Admin Dose 500 MG; Start 02/19/19 at 09:00 Aspirin (Aspirin) 81 mg DAILY GTB Last administered on 02/26/19 10:20; Admin Dose 81 MG; Start 02/19/19 at 09:00; Status Hold Atorvastatin Calcium (Lipitor) 40 mg QHS GTB Last administered on 03/16/19 21:23; Admin Dose 40 MG; Start 02/19/19 at 21:00 Folic Acid (Folic Acid) 1 mg DAILY GTB Last administered on 03/17/19 09:15; Adm in Dose 1 MG; Start 02/19/19 at 09:00 Hydralazine HCl (Apresoline) 25 mg Q8 GTB Last administered on 03/17/19 14:15; Admin Dose 25 MG; Start 02/19/19 at 06:00 Linagliptin (Tradjenta) 5 mg DAILY GTB Last administered on 03/17/19 09:09; Admin Dose 5 MG; Start 02/19/19 at 09:00 Lorazepam (Ativan) 0.5 mg HS PRN GTB ANXIETY Last administered on 03/16/19 21:23; Admin Dose 0.5 MG; Start 02/19/19 at 03:30 Metoprolol Tartrate (Lopressor) 50 mg BID GTB Last administered on 03/17/19 09:08; Admin Dose 50 MG; Start 02/19/19 at 09:00 Ondansetron HCl (Zofran Tab) 4 mg Q4H PRN GTB NAUSEA AND/OR VOMITING; Start 02/19/19 at 03:30 Valproate Sodium (Depakene Liquid Cup) 250 mg Q8 GTB Last administered on 03/17/19 14:14; Admin Dose 250 MG; Start 02/19/19 at 06:00 Docusate Sodium (Colace Liquid Cup) 100 mg DAILY GTB Last administered on 03/17/19 09:07; Admin Dose 100 MG; Start 02/19/19 at 09:00 Docusate Sodium (Colace Liquid Cup) 100 mg Q12H PRN GTB CONSTIPATION; Start 02/19/19 at 04:00 Acetaminophen (Tylenol Tab) 650 mg Q6H PRN GTB .PAIN 1-3 OR TEMP Last administered on 03/09/19 10:13; Admin Dose 650 MG; Start 02/19/19 at 03:35 Mupirocin (Bactroban) 1 applic BID TOP Last administered on 03/17/19 09:11; Admin Dose 1 APPLIC; Start 02/22/19 at 14:00 Insulin Glargine (Lantus) 4 units DAILY@2000 SC Last administered on 03/16/19 21:18; Admin Dose 4 UNITS; Start 02/26/19 at 20:00 Epoetin Michael-epbx (Retacrit (Esrd)) 4,000 unit MoWeFr@1700 SC Last administered on 03/16/19at 17:20; Admin Dose 4,000 UNIT; Start 02/28/19 at 17:00 Olanzapine (Zyprexa) 2.5 mg DAILY GTB Last administered on 03/17/19 09:15; Admin Dose 2.5 MG; Start 03/01/19 at 09:00 Lansoprazole (Prevacid) 30 mg BID@0600,1800 GTB Last administered on 03/17/19at 06:49; Admin Dose 30 MG; Start 02/28/19 at 18:00 Ferrous Sulfate (Feosol Liquid Cup) 300 mg BID GTB Last administered on 03/17/19at 09:07; Admin Dose 300 MG; Start 03/08/19 at 09:00 Albuterol/ Ipratropium (Duoneb) 3 ml Q4H RESP THERAPY HHN Last administered on 03/17/19at 14:17; Admin Dose 3 ML; Start 03/12/19 at 10:00 Albuterol/ Ipratropium (Duoneb) 3 ml Q2H RESP THERAPY PRN HHN SHORTNESS OF BREATH; Start 03/12/19 at 10:00 Meropenem/Sodium Chloride 50 ml @ 100 mls/hr Q24H IVPB Last administered on 03/17/19at 14:14; Admin Dose 100 MLS/HR; Start 03/12/19 at 14:00 Miscellaneous Information 1 ea NOTE XX ; Start 03/13/19 at 16:30 Glucose (Glutose) 15 gm Q15M PRN PO DECREASED GLUCOSE; Start 03/13/19 at 16:30 Glucose (Glutose) 22.5 gm Q15M PRN PO DECREASED GLUCOSE; Start 03/13/19 at 16:30 Dextrose (D50w Syringe) 25 ml Q15M PRN IV DECREASED GLUCOSE; Start 03/13/19 at 1 6:30 Dextrose (D50w Syringe) 50 ml Q15M PRN IV DECREASED GLUCOSE; Start 03/13/19 at 16:30 Glucagon (Glucagen) 1 mg Q15M PRN IM DECREASED GLUCOSE; Start 03/13/19 at 16:30 Glucose (Glutose) 15 gm Q15M PRN BUCCAL DECREASED GLUCOSE; Start 03/13/19 at 16:30 JOSE RAUL ANDREWS MD March 17, 2019 15:22
--- NOTE | 2019-03-17 20:43 | CONS ---
Assessment/Plan Assessment/Plan Hospital Course (Demo Recall) 83 yo female presented with severe anemia Interval hx: no signs of GI bleeding. Tolerating tube feeds. No changes 1. Severe anemia,acute on chronic -likely due to chronic disease -retic 2.6, ferritin 4490, neg FOB (multiple FOB) 2. End-stage renal disease on dialysis. 3. Urinary tract infection. -positive yeast 4. Dysphagia, status post percutaneous endoscopic gastrostomy tube placement. 5. Hypertension. 6. Behavioral disorder. PLAN: Monitor HH Hold all anti coagulants PPI BID If GI bleeding, noted positive FOB, we will consider push endoscopy Pt examined and plan of care discussed with Dr. Baird. Consultation Date/Type/Reason Admit Date/Time Feb 19, 2019 at 01:01 Initial Consult Date Requesting Provider: JOSE RAUL ANDREWS MD Date/Time of Note DATE: 03/17/19 TIME: 20:42 Exam/Review of Systems Exam Vitals Vital Signs Date Temp Pulse Resp B/P (MAP) Pulse Ox O2 O2 Flow FiO2 Time Delivery Rate 03/17/19 98.2 93 18 145/76 93 20:37 (99) 03/17/19 21 20:33 03/17/19 Nasal 3.0 10:02 Cannula Intake and Output 03/16/19 03/16/19 03/17/19 1515:00 23:00 07:00 IntakeIntake Total 610 ml 560 ml OutputOutput Total 2500 ml BalanceBalance -2500 ml 610 ml 560 ml Constitutional: alert Psych: no complaints Head: normocephalic Eyes: nl sclera, PERRL Respiratory: normal air movement Cardiovascular: regular rate and rhythm Gastrointestinal: soft, non-tender 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: confused Results Result Diagram: 03/17/19 0604 03/17/19 0604 Results 24hrs Laboratory Tests Test 03/16/19 21:05 03/17/19 06:04 03/17/19 09:10 Bedside Glucose 166 166 White Blood Count 7.9 # Red Blood Count 2.97 L Hemoglobin 8.1 L Hematocrit 25.5 L Mean Corpuscular Volume 85.9 Mean Corpuscular Hemoglobin 27.3 L Mean Corpuscular Hemoglobin Concent 31.8 L Red Cell Distribution Width 17.1 H Platelet Count 216 Mean Platelet Volume 11.0 H Immature Granulocytes % 2.200 H Neutrophils % 66.8 Lymphocytes % 12.1 L Monocytes % 12.6 H Eosinophils % 5.9 Basophils % 0.4 Nucleated Red Blood Cells % 1.5 H Immature Granulocytes # 0.170 H Neutrophils # 5.3 Lymphocytes # 1.0 Monocytes # 1.0 H Eosinophils # 0.5 Basophils # 0.0 Nucleated Red Blood Cells # 0.1 H Sodium Level 138 Potassium Level 3.6 Chloride Level 103 Carbon Dioxide Level 29 Anion Gap 6 Blood Urea Nitrogen 33 H Creatinine 1.36 H Est Glomerular Filtrat Rate mL/min Glucose Level 144 Calcium Level 8.2 L Phosphorus Level 2.7 Magnesium Level 2.1 Medications Medication Current Medications IV Flush (NS 3 ml) 3 ml PER PROTOCOL IV ; Start 02/19/19 at 03:30 Lorazepam (Ativan) 0.5 mg Q8H PRN GTB .ANXIETY Last administered on 03/14/19 01:15; Admin Dose 0.5 MG; Start 02/19/19 at 03:30 Ondansetron HCl (Zofran Inj) 4 mg Q6H PRN IV NAUSEA/VOMITING; Start 02/19/19 at 03:30 Acetaminophen (Tylenol Tab) 325 mg Q4H PRN GTB FOR FEVER 100AND ABOVE Last administered on 02/20/19 20:13; Admin Dose 325 MG; Start 02/19/19 at 03:30 Acetaminophen (Tylenol Tab) 650 mg Q6H PRN GTB PAIN LEVEL 1-10/10 Last administered on 03/11/19 12:12; Admin Dose 650 MG; Start 02/19/19 at 03:30 Amlodipine Besylate (Norvasc) 5 mg BID GTB Last administered on 03/17/19 09:07; Admin Dose 5 MG; Start 02/19/19 at 09:00 Ascorbic Acid (Vitamin C) 500 mg DAILY GTB Last administered on 03/17/19 09:08; Admin Dose 500 MG; Start 02/19/19 at 09:00 Aspirin (Aspirin) 81 mg DAILY GTB Last administered on 02/26/19 10:20; Admin Dose 81 MG; Start 02/19/19 at 09:00; Status Hold Atorvastatin Calcium (Lipitor) 40 mg QHS GTB Last administered on 03/16/19 21:23; Admin Dose 40 MG; Start 02/19/19 at 21:00 Folic Acid (Folic Acid) 1 mg DAILY GTB Last administered on 03/17/19 09:15; Admin Dose 1 MG; Start 02/19/19 at 09:00 Hydralazine HCl (Apresoline) 25 mg Q8 GTB Last administered on 03/17/19 14:15; Admin Dose 25 MG; Start 02/19/19 at 06:00 Linagliptin (Tradjenta) 5 mg DAILY GTB Last administered on 03/17/19 09:09; Admin Dose 5 MG; Start 02/19/19 at 09:00 Lorazepam (Ativan) 0.5 mg HS PRN GTB ANXIETY Last administered on 03/16/19 21:23; Admin Dose 0.5 MG; Start 02/19/19 at 03:30 Metoprolol Tartrate (Lopressor) 50 mg BID GTB Last administered on 03/17/19 09:08; Admin Dose 50 MG; Start 02/19/19 at 09:00 Ondansetron HCl (Zofran Tab) 4 mg Q4H PRN GTB NAUSEA AND/OR VOMITING; Start 02/19/19 at 03:30 Valproate Sodium (Depakene Liquid Cup) 250 mg Q8 GTB Last administered on 9at 14:14; Admin Dose 250 MG; Start 02/19/19 at 06:00 Docusate Sodium (Colace Liquid Cup) 100 mg DAILY GTB Last administered on 03/17/19 09:07; Admin Dose 100 MG; Start 02/19/19 at 09:00 Docusate Sodium (Colace Liquid Cup) 100 mg Q12H PRN GTB CONSTIPATION; Start 02/19/19 at 04:00 Acetaminophen (Tylenol Tab) 650 mg Q6H PRN GTB .PAIN 1-3 OR TEMP Last administered on 03/09/19 10:13; Admin Dose 650 MG; Start 02/19/19 at 03:35 Mupirocin (Bactroban) 1 applic BID TOP Last administered on 03/17/19 09:11; Admin Dose 1 APPLIC; Start 02/22/19 at 14:00 Insulin Glargine (Lantus) 4 units DAILY@2000 SC Last administered on 03/16/19 21:18; Admin Dose 4 UNITS; Start 02/26/19 at 20:00 Epoetin Michael-epbx (Retacrit (Esrd)) 4,000 unit MoWeFr@1700 SC Last administered on 03/16/19 17:20; Admin Dose 4,000 UNIT; Start 02/28/19 at 17:00 Olanzapine (Zyprexa) 2.5 mg DAILY GTB Last administered on 03/17/19 09:15; Admin Dose 2.5 MG; Start 03/01/19 at 09:00 Lansoprazole (Prevacid) 30 mg BID@0600,1800 GTB Last administered on 03/17/19at 17:14; Admin Dose 30 MG; Start 02/28/19 at 18:00 Ferrous Sulfate (Feosol Liquid Cup) 300 mg BID GTB Last administered on 03/17/19 09:07; Admin Dose 300 MG; Start 03/08/19 at 09:00 Albuterol/ Ipratropium (Duoneb) 3 ml Q4H RESP THERAPY HHN Last administered on 03/17/19at 20:31; Admin Dose 3 ML; Start 03/12/19 at 10:00 Albuterol/ Ipratropium (Duoneb) 3 ml Q2H RESP THERAPY PRN HHN SHORTNESS OF BREATH; Start 03/12/19 at 10:00 Meropenem/Sodium Chloride 50 ml @ 100 mls/hr Q24H IVPB Last administered on 03/17/19at 14:14; Admin Dose 100 MLS/HR; Start 03/12/19 at 14:00 Miscellaneous Information 1 ea NOTE XX ; Start 03/13/19 at 16:30 Glucose (Glutose) 15 gm Q15M PRN PO DECREASED GLUCOSE; Start 03/13/19 at 16:30 Glucose (Glutose) 22.5 gm Q15M PRN PO DECREASED GLUCOSE; Start 03/13/19 at 16:30 Dextrose (D50w Syringe) 25 ml Q15M PRN IV DECREASED GLUCOSE; Start 03/13/19 at 16:30 Dextrose (D50w Syringe) 50 ml Q15M PRN IV DECREASED GLUCOSE; Start 03/13/19 at 16:30 Glucagon (Glucagen) 1 mg Q15M PRN IM DECREASED GLUCOSE; Start 03/13/19 at 16:30 Glucose (Glutose) 15 gm Q15M PRN BUCCAL DECREASED GLUCOSE; Start 03/13/19 at 16:30 TONY VENCES March 17, 2019 20:43
[2019-03-17] MEDS: ATORVASTATIN 40 MG TAB GTB SCH (21:55)
[2019-03-17] MEDS: INSULIN GLARGINE [LANTus] (100 UNITS/ML) SYG SC SCH (22:13)
[2019-03-18] VITALS (28 sets, daily range): BP systolic 89–165; BP diastolic 54–79; PULSE 69–99; RESP 16–19
[2019-03-18] MEDS: ALBUTEROL/IPRATROPIUM (NEB) 3 ML AMP HHN SCH ×6 (01:26→20:17)
[2019-03-18] MEDS: VALPROIC ACID LIQUID CUP 250 MG/5 ML CUP GTB SCH ×3 (06:34→23:27)
[2019-03-18] MEDS: LANSOPRAZOLE 30 MG CAP GTB SCH ×2 (06:34→17:39)
[2019-03-18] MEDS: AMLODIPINE 5 MG TAB GTB SCH ×2 (10:29→23:32)
[2019-03-18] MEDS: ASCORBIC ACID 500 MG TAB GTB SCH (10:30)
[2019-03-18] MEDS: FERROUS SULFATE 60 MG/ML 5ML CUP GTB SCH ×2 (10:30→23:27)
[2019-03-18] MEDS: FOLIC ACID 1 MG TAB GTB SCH (10:30)
[2019-03-18] MEDS: METOPROLOL 50 MG TAB GTB SCH ×2 (10:30→23:32)
[2019-03-18] MEDS: DOCUSATE SODIUM 10 MG/ML (10ML CUP) GTB SCH (10:30)
[2019-03-18] MEDS: OLANZAPINE 2.5 MG TAB GTB SCH (10:30)
[2019-03-18] MEDS: LINAGLIPTIN 5 MG TABLET GTB SCH (10:31)
[2019-03-18] MEDS: MUPIROCIN 2% 22 GM OINT TOP SCH ×2 (10:31→21:00)
--- NOTE | 2019-03-18 12:41 | CONS ---
Assessment/Plan Assessment/Plan Hospital Course (Demo Recall) No events, looks comfortable Antimicrobials: Meropenem Indwelling: Left subclavian permacath, PEG Microbiology: Urine culture on admission grew Dominique glabrata, blood culture grew Enterococcus Chest x-ray on admission revealed no definite evidence of pneumonia or CHF Physical examination: This is a chronically ill-appearing wasted elderly woman who is in no distress. Head atraumatic normocephalic. Neck is supple. Chest rise symmetrical patient is mildly tachypneic with expiratory wheezes. Heart: S1-S2, tachycardic. Abdomen soft bowel sounds present. Extremities without cyanosis edema. Assessment: 1. Acute hypoxemia ==> combination of aspiration and fluid overload 2. Status post recurrent UTI and bacteremia 4. End-stage renal disease, hemodialysis dependent 5. Anemia 6. 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 Plan: Remains stable, continue present care, aspiration precautions, dc abx in am Consultation Date/Type/Reason Admit Date/Time Feb 19, 2019 at 01:01 Initial Consult Date Type of Consult id Requesting Provider: JOSE RAUL ANDREWS MD Date/Time of Note DATE: 03/18/19 TIME: 12:40 Exam/Review of Systems Exam Vitals Vital Signs Date Temp Pulse Resp B/P (MAP) Pulse Ox O2 O2 Flow FiO2 Time Delivery Rate 03/18/19 98.1 77 19 148/79 96 11:48 (102) 03/18/19 21 09:06 03/17/19 Nasal 3.0 20:00 Cannula Intake and Output 03/17/19 03/17/19 03/18/19 1515:00 23:00 07:00 IntakeIntake Total 550 ml 590 ml 600 ml BalanceBalance 550 ml 590 ml 600 ml Results Result Diagram: 03/18/19 0505 03/18/19 0505 Results 24hrs Laboratory Tests Test 03/17/19 21:52 03/18/19 05:05 Bedside Glucose 166 White Blood Count 8.3 Red Blood Count 3.26 L Hemoglobin 8.8 L Hematocrit 28.0 L Mean Corpuscular Volume 85.9 Mean Corpuscular Hemoglobin 27.0 L Mean Corpuscular Hemoglobin Concent 31.4 L Red Cell Distribution Width 16.6 H Platelet Count 235 Mean Platelet Volume 11.5 H Immature Granulocytes % 1.600 H Neutrophils % 71.1 Lymphocytes % 8.7 L Monocytes % 12.0 H Eosinophils % 6.0 Basophils % 0.6 Nucleated Red Blood Cells % 1.0 H Immature Granulocytes # 0.130 H Neutrophils # 5.9 Lymphocytes # 0.7 L Monocytes # 1.0 H Eosinophils # 0.5 Basophils # 0.1 Nucleated Red Blood Cells # 0.1 H Sodium Level 139 Potassium Level 3.6 Chloride Level 105 Carbon Dioxide Level 28 Anion Gap 6 Blood Urea Nitrogen 52 H Creatinine 1.64 H Est Glomerular Filtrat Rate mL/min Glucose Level 147 Calcium Level 8.4 Phosphorus Level 2.8 Magnesium Level 2.2 Medications Medication Current Medications IV Flush (NS 3 ml) 3 ml PER PROTOCOL IV ; Start 02/19/19 at 03:30 Lorazepam (Ativan) 0.5 mg Q8H PRN GTB .ANXIETY Last administered on 03/14/19 01:15; Admin Dose 0.5 MG; Start 02/19/19 at 03:30 Ondansetron HCl (Zofran Inj) 4 mg Q6H PRN IV NAUSEA/VOMITING; Start 02/19/19 at 03:30 Acetaminophen (Tylenol Tab) 325 mg Q4H PRN GTB FOR FEVER 100AND ABOVE Last administered on 02/20/19 20:13; Admin Dose 325 MG; Start 02/19/19 at 03:30 Acetaminophen (Tylenol Tab) 650 mg Q6H PRN GTB PAIN LEVEL 1-10/10 Last administered on 03/11/19 12:12; Admin Dose 650 MG; Start 02/19/19 at 03:30 Amlodipine Besylate (Norvasc) 5 mg BID GTB Last administered on 03/18/19 10:29; Admin Dose 5 MG; Start 02/19/19 at 09:00 Ascorbic Acid (Vitamin C) 500 mg DAILY GTB Last administered on 03/18/19 10:30; Admin Dose 500 MG; Start 02/19/19 at 09:00 Aspirin (Aspirin) 81 mg DAILY GTB Last administered on 02/26/19 10:20; Admin Dose 81 MG; Start 02/19/19 at 09:00; Status Hold Atorvastatin Calcium (Lipitor) 40 mg QHS GTB Last administered on 03/17/19 21:55; Admin Dose 40 MG; Start 02/19/19 at 21:00 Folic Acid (Folic Acid) 1 mg DAILY GTB Last administered on 03/18/19 10:30; Admin Dose 1 MG; Start 02/19/19 at 09:00 Hydralazine HCl (Apresoline) 25 mg Q8 GTB Last administered on 03/18/19 06:35; Admin Dose 25 MG; Start 02/19/19 at 06:00 Linagliptin (Tradjenta) 5 mg DAILY GTB Last administered on 03/18/19 10:31; Admin Dose 5 MG; Start 02/19/19 at 09:00 Lorazepam (Ativan) 0.5 mg HS PRN GTB ANXIETY Last administered on 03/16/19 21:23; Admin Dose 0.5 MG; Start 02/19/19 at 03:30 Metoprolol Tartrate (Lopressor) 50 mg BID GTB Last administered on 03/18/19 10:30; Admin Dose 50 MG; Start 02/19/19 at 09:00 Ondansetron HCl (Zofran Tab) 4 mg Q4H PRN GTB NAUSEA AND/OR VOMITING; Start at 03:30 Valproate Sodium (Depakene Liquid Cup) 250 mg Q8 GTB Last administered on 03/18/19 06:34; Admin Dose 250 MG; Start 02/19/19 at 06:00 Docusate Sodium (Colace Liquid Cup) 100 mg DAILY GTB Last administered on 03/18/19 10:30; Admin Dose 100 MG; Start 02/19/19 at 09:00 Docusate Sodium (Colace Liquid Cup) 100 mg Q12H PRN GTB CONSTIPATION; Start 02/19/19 at 04:00 Acetaminophen (Tylenol Tab) 650 mg Q6H PRN GTB .PAIN 1-3 OR TEMP Last administered on 03/09/19 10:13; Admin Dose 650 MG; Start 02/19/19 at 03:35 Mupirocin (Bactroban) 1 applic BID TOP Last administered on 03/18/19 10:31; Admin Dose 1 APPLIC; Start 02/22/19 at 14:00 Insulin Glargine (Lantus) 4 units DAILY@2000 SC Last administered on 03/17/19 22:13; Admin Dose 4 UNITS; Start 02/26/19 at 20:00 Epoetin Michael-epbx (Retacrit (Esrd)) 4,000 unit MoWeFr@1700 SC Last administered on 03/16/19at 17:20; Admin Dose 4,000 UNIT; Start 02/28/19 at 17:00 Olanzapine (Zyprexa) 2.5 mg DAILY GTB Last administered on 03/18/19at 10:30; Admin Dose 2.5 MG; Start 03/01/19 at 09:00 Lansoprazole (Prevacid) 30 mg BID@0600,1800 GTB Last administered on 03/18/19at 06:34; Admin Dose 30 MG; Start 02/28/19 at 18:00 Ferrous Sulfate (Feosol Liquid Cup) 300 mg BID GTB Last administered on 03/18/19at 10:30; Admin Dose 300 MG; Start 03/08/19 at 09:00 Albuterol/ Ipratropium (Duoneb) 3 ml Q4H RESP THERAPY HHN Last administered on 03/18/19at 09:05; Admin Dose 3 ML; Start 03/12/19 at 10:00 Albuterol/ Ipratropium (Duoneb) 3 ml Q2H RESP THERAPY PRN HHN SHORTNESS OF BREATH; Start 03/12/19 at 10:00 Meropenem/Sodium Chloride 50 ml @ 100 mls/hr Q24H IVPB Last administered on 03/17/19at 14:14; Admin Dose 100 MLS/HR; Start 03/12/19 at 14:00 Miscellaneous Information 1 ea NOTE XX ; Start 03/13/19 at 16:30 Glucose (Glutose) 15 gm Q15M PRN PO DECREASED GLUCOSE; Start 03/13/19 at 16:30 Glucose (Glutose) 22.5 gm Q15M PRN PO DECREASED GLUCOSE; Start 03/13/19 at 16:30 Dextrose (D50w Syringe) 25 ml Q15M PRN IV DECREASED GLUCOSE; Start 03/13/19 at 16:30 Dextrose (D50w Syringe) 50 ml Q15M PRN IV DECREASED GLUCOSE; Start 03/13/19 at 16:30 Glucagon (Glucagen) 1 mg Q15M PRN IM DECREASED GLUCOSE; Start 03/13/19 at 16:30 Glucose (Glutose) 15 gm Q15M PRN BUCCAL DECREASED GLUCOSE; Start 03/13/19 at 16:30 PHYLICIA HOLCOMB NP March 18, 2019 12:41
[2019-03-18] MEDS: MEROPENEM 500MG/50 ML (PMX) 50 ML IVPB SCH (13:45)
--- NOTE | 2019-03-18 15:13 | CONS ---
Assessment/Plan Assessment/Plan Hospital Course (Demo Recall) 1. Fevers, likely secondary to urinary tract infection, now bld cx positive gram + Enterococcus 2. End-stage renal disease on hemodialysis. 3. Urinary tract infection. 4. Hypertension. 5. Dementia. 6. Diabetes mellitus type II. 7. Diastolic heart failure. 8. Moderate protein energy malnutrition with cachexia. 9. Osteoarthritis. 10. GT status 11. Anemia of chronic disease 12. REsp failure, On BIPAP Assessment/Plan (Daily) -c/w HD, MWFR, hd today, -c/w epoetin 3 times a week -Perm cath is functional no bleeding Consultation Date/Type/Reason Admit Date/Time Feb 19, 2019 at 01:01 Initial Consult Date 02/19/2019 Type of Consult nephrology Requesting Provider: JOSE RAUL ANDREWS MD Date/Time of Note DATE: 03/18/19 TIME: 15:11 24 HR Interval Summary Free Text/Dictation alert, Exam/Review of Systems Exam Vitals Vital Signs Date Temp Pulse Resp B/P (MAP) Pulse Ox O2 O2 Flow FiO2 Time Delivery Rate 03/18/19 74 17 96 21 13:32 03/18/19 98.1 148/79 11:48 (102) 03/18/19 Nasal 3.0 08:10 Cannula Intake and Output 03/17/19 03/17/19 03/18/19 1515:00 23:00 07:00 IntakeIntake Total 550 ml 590 ml 600 ml BalanceBalance 550 ml 590 ml 600 ml Exam left chest Permcath Constitutional: alert, oriented Neck: supple Respiratory: diminished breath sounds Gastrointestinal: other (GTube) Results Result Diagram: 03/18/19 0505 03/18/19 0505 Results 24hrs Laboratory Tests Test 03/17/19 21:52 03/18/19 05:05 Bedside Glucose 166 White Blood Count 8.3 Red Blood Count 3.26 L Hemoglobin 8.8 L Hematocrit 28.0 L Mean Corpuscular Volume 85.9 Mean Corpuscular Hemoglobin 27.0 L Mean Corpuscular Hemoglobin Concent 31.4 L Red Cell Distribution Width 16.6 H Platelet Count 235 Mean Platelet Volume 11.5 H Immature Granulocytes % 1.600 H Neutrophils % 71.1 Lymphocytes % 8.7 L Monocytes % 12.0 H Eosinophils % 6.0 Basophils % 0.6 Nucleated Red Blood Cells % 1.0 H Immature Granulocytes # 0.130 H Neutrophils # 5.9 Lymphocytes # 0.7 L Monocytes # 1.0 H Eosinophils # 0.5 Basophils # 0.1 Nucleated Red Blood Cells # 0.1 H Sodium Level 139 Potassium Level 3.6 Chloride Level 105 Carbon Dioxide Level 28 Anion Gap 6 Blood Urea Nitrogen 52 H Creatinine 1.64 H Est Glomerular Filtrat Rate mL/min Glucose Level 147 Calcium Level 8.4 Phosphorus Level 2.8 Magnesium Level 2.2 Medications Medication Current Medications IV Flush (NS 3 ml) 3 ml PER PROTOCOL IV ; Start 02/19/19 at 03:30 Lorazepam (Ativan) 0.5 mg Q8H PRN GTB .ANXIETY Last administered on 03/14/19 01:15; Admin Dose 0.5 MG; Start 02/19/19 at 03:30 Ondansetron HCl (Zofran Inj) 4 mg Q6H PRN IV NAUSEA/VOMITING; Start 02/19/19 at 03:30 Acetaminophen (Tylenol Tab) 325 mg Q4H PRN GTB FOR FEVER 100AND ABOVE Last administered on 02/20/19 20:13; Admin Dose 325 MG; Start 02/19/19 at 03:30 Acetaminophen (Tylenol Tab) 650 mg Q6H PRN GTB PAIN LEVEL 1-10/10 Last administered on 03/11/19 12:12; Admin Dose 650 MG; Start 02/19/19 at 03:30 Amlodipine Besylate (Norvasc) 5 mg BID GTB Last administered on 03/18/19 10:29; Admin Dose 5 MG; Start 02/19/19 at 09:00 Ascorbic Acid (Vitamin C) 500 mg DAILY GTB Last administered on 03/18/19 10:30; Admin Dose 500 MG; Start 02/19/19 at 09:00 Aspirin (Aspirin) 81 mg DAILY GTB Last administered on 02/26/19 10:20; Admin Dose 81 MG; Start 02/19/19 at 09:00; Status Hold Atorvastatin Calcium (Lipitor) 40 mg QHS GTB Last administered on 03/17/19 21:55; Admin Dose 40 MG; Start 02/19/19 at 21:00 Folic Acid (Folic Acid) 1 mg DAILY GTB Last administered on 03/18/19 10:30; Admin Dose 1 MG; Start 02/19/19 at 09:00 Hydralazine HCl (Apresoline) 25 mg Q8 GTB Last administered on 03/18/19 13:44; Admin Dose 25 MG; Start 02/19/19 at 06:00 Linagliptin (Tradjenta) 5 mg DAILY GTB Last administered on 03/18/19 10:31; Admin Dose 5 MG; Start 02/19/19 at 09:00 Lorazepam (Ativan) 0.5 mg HS PRN GTB ANXIETY Last administered on 03/16/19 21:23; Admin Dose 0.5 MG; Start 02/19/19 at 03:30 Metoprolol Tartrate (Lopressor) 50 mg BID GTB Last administered on 03/18/19 10:30; Admin Dose 50 MG; Start 02/19/19 at 09:00 Ondansetron HCl (Zofran Tab) 4 mg Q4H PRN GTB NAUSEA AND/OR VOMITING; Start 02/19/19 at 03:30 Valproate Sodium (Depakene Liquid Cup) 250 mg Q8 GTB Last administered on 03/18/19 13:44; Admin Dose 250 MG; Start 02/19/19 at 06:00 Docusate Sodium (Colace Liquid Cup) 100 mg DAILY GTB Last administered on 03/18/19 10:30; Admin Dose 100 MG; Start 02/19/19 at 09:00 Docusate Sodium (Colace Liquid Cup) 100 mg Q12H PRN GTB CONSTIPATION; Start 02/19/19 at 04:00 Acetaminophen (Tylenol Tab) 650 mg Q6H PRN GTB .PAIN 1-3 OR TEMP Last administered on 03/09/19 10:13; Admin Dose 650 MG; Start 02/19/19 at 03:35 Mupirocin (Bactroban) 1 applic BID TOP Last administered on 03/18/19 10:31; Admin Dose 1 APPLIC; Start 02/22/19 at 14:00 Insulin Glargine (Lantus) 4 units DAILY@2000 SC Last administered on 03/17/19 22:13; Admin Dose 4 UNITS; Start 02/26/19 at 20:00 Epoetin Michael-epbx (Retacrit (Esrd)) 4,000 unit MoWeFr@1700 SC Last administered on 03/16/19 17:20; Admin Dose 4,000 UNIT; Start 02/28/19 at 17:00 Olanzapine (Zyprexa) 2.5 mg DAILY GTB Last administered on 03/18/19 10:30; Admin Dose 2.5 MG; Start 03/01/19 at 09:00 Lansoprazole (Prevacid) 30 mg BID@0600,1800 GTB Last administered on 03/18/19 06:34; Admin Dose 30 MG; Start 02/28/19 at 18:00 Ferrous Sulfate (Feosol Liquid Cup) 300 mg BID GTB Last administered on 03/18/19 10:30; Admin Dose 300 MG; Start 03/08/19 at 09:00 Albuterol/ Ipratropium (Duoneb) 3 ml Q4H RESP THERAPY HHN Last administered on 03/18/19 13:31; Admin Dose 3 ML; Start 03/12/19 at 10:00 Albuterol/ Ipratropium (Duoneb) 3 ml Q2H RESP THERAPY PRN HHN SHORTNESS OF BREATH; Start 03/12/19 at 10:00 Meropenem/Sodium Chloride 50 ml @ 100 mls/hr Q24H IVPB Last administered on 03/18/19 13:45; Admin Dose 100 MLS/HR; Start 03/12/19 at 14:00 Miscellaneous Information 1 ea NOTE XX ; Start 03/13/19 at 16:30 Glucose (Glutose) 15 gm Q15M PRN PO DECREASED GLUCOSE; Start 03/13/19 at 16:30 Glucose (Glutose) 22.5 gm Q15M PRN PO DECREASED GLUCOSE; Start 03/13/19 at 16:30 Dextrose (D50w Syringe) 25 ml Q15M PRN IV DECREASED GLUCOSE; Start 03/13/19 at 16:30 Dextrose (D50w Syringe) 50 ml Q15M PRN IV DECREASED GLUCOSE; Start 03/13/19 at 16:30 Glucagon (Glucagen) 1 mg Q15M PRN IM DECREASED GLUCOSE; Start 03/13/19 at 16:30 Glucose (Glutose) 15 gm Q15M PRN BUCCAL DECREASED GLUCOSE; Start 03/13/19 at 16:30 FLAVIO CLAYTON March 18, 2019 15:13
[2019-03-18] MEDS: EPOETIN ALFA-EPBX (ESRD) 4,000 UNIT/ML VIAL SC SCH (17:40)
[2019-03-18] MEDS: INSULIN GLARGINE [LANTus] (100 UNITS/ML) SYG SC SCH (20:00)
--- NOTE | 2019-03-18 20:44 | DS ---
DATE OF ADMISSION: 02/19/2019 DATE OF DISCHARGE: 03/18/2019 REASON FOR ADMISSION: Fevers, UTI and anemia. HOSPITAL COURSE: The patient is an 83-year-old [place] female, very sick with history of advanced d ementia, end-stage renal disease on dialysis 3 times a week on Thursday, Thursday and Thursday; hyperten robert, diastolic dysfunction heart failure, diabetes mellitus type 2, anxiety disorder, arrhythmia, CO PD, dysphagia, G-tube feeding and moderate to severe caloric-protein malnutrition and dysphagia. The patient has been hospitalized multiple times due to UTI, bacteremia, line sepsis and aspiration pneu monia, now presents with fevers. She was found to have urinary tract infection and anemia. The teo ent was transfused and started on broad-spectrum antibiotics. Cultures initially showed Dominique glab rata. She was treated with antifungal which include IV Cancidas. Blood cultures a later time showed Enterococcus, so her PermCath was exchanged. Recent chest x-ray shows evidence of pneumonia. Her w erick count jumped up to 15,000. Overall improved with a course of antibiotics and antifungal, dialys is, transfusions throughout her stay. The patient unfortunately is high risk of fall. She has been placed either on fall precaution with 1:1 sitter or with restraints. Multiple physicians were consul gilbert throughout her stay including Dr. Juliocesar Stringer, Dr. Linda Andrews of nephrology team, Dr. Proctor , the infectious disease specialist, Dr. Baird, the GI specialist as one time G-tube was exchanged. The patient overall is doing better but overall long-term prognosis is poor. The patient can be dis charged back to the [facility] facility. Hemoglobin has been stabilized and white count is norm al at 8.3. Temperature was 98.1, pulse 84, respirations 18, blood pressure 148/67, saturation 100% o n room air. DISCHARGE MEDICATIONS: The patient can be discharged with the following medications: 1. Tylenol p.r.n. for pain. 2. DuoNeb p.r.n. 3. Norvasc 5 mg b.i.d. 4. Vitamin C 500 mg daily. 5. Aspirin 81 mg daily. 6. Lipitor 40 mg at bedtime. 7. Colace 100 mg daily and p.r.n. 8. Epogen with dialysis. 9. Ferrous sulfate 300 b.i.d. 10. Folic acid 1 mg daily. 11. Hypoglycemic protocol. 12. Hydralazine 25 every 8 hours. 13. Insulin Lantus 4 units daily at night. 14. Prevacid 30 mg twice a day. 15. We did stop patient's blood thinners, which include aspirin and heparin due to risk of bleeding and need for transfusion. 16. Ativan 0.5 q.8 p.r.n. for anxiety at bedtime p.r.n. 17. Lopressor 50 b.i.d. 18. Merrem as directed for 2 days. 19. Treatment of hypoglycemia. 20. Bactroban ointment as directed. 21. Zyprexa 2.5 mg daily. 22. Zofran via G-tube p.r.n. 23. Depakote 250 q.8 hours. FINAL DIAGNOSES: 1. Sepsis. 2. Urinary tract infection. 3. Bacteremia. 4. Aspiration pneumonia. 5. Advanced vascular dementia. 6. End-stage renal disease. 7. Hypertension. 8. Diabetes mellitus. 9. Anemia requiring transfusion. Rule out gastrointestinal bleed. 10. Anxiety disorder. 11. Anemia. 12. History of vancomycin-resistant Enterococcus and fungemia. 13. Osteoarthritis. 14. Chronic obstructive pulmonary disease. 15. Diastolic dysfunction heart failure. 16. Dysphagia on G-tube feeding. 17. Moderate to severe caloric-protein malnutrition. 18. Status post multiple orthopedic surgeries. See my dictation as well dated 03/04/2019 as a supplement. DIET: Via G-tube at 30 mL an hour. DISPOSITION: The patient was discharged to [facility]. I informed the daughter regarding the patient's overall condition throughout her stay. We marry reeves. Dictated By: DYLON HULL/MADAN Conf#: [id number] DID#: [id number] CC: LINDA ANDREWS;*End*
[2019-03-18] MEDS: ATORVASTATIN 40 MG TAB GTB SCH ×2 (23:27→23:32)
[2019-03-19] VITALS (7 sets, daily range): BP systolic 116–139; BP diastolic 58–70; PULSE 72–80; RESP 18–20
[2019-03-19] MEDS: ALBUTEROL/IPRATROPIUM (NEB) 3 ML AMP HHN SCH ×6 (00:14→21:05)
[2019-03-19] MEDS: VALPROIC ACID LIQUID CUP 250 MG/5 ML CUP GTB SCH ×3 (06:06→22:40)
[2019-03-19] MEDS: LANSOPRAZOLE 30 MG CAP GTB SCH ×2 (06:06→17:51)
[2019-03-19] MEDS: MUPIROCIN 2% 22 GM OINT TOP SCH ×2 (09:38→22:45)
[2019-03-19] MEDS: FERROUS SULFATE 60 MG/ML 5ML CUP GTB SCH ×2 (09:38→22:40)
[2019-03-19] MEDS: ASCORBIC ACID 500 MG TAB GTB SCH (09:39)
[2019-03-19] MEDS: OLANZAPINE 2.5 MG TAB GTB SCH (09:39)
[2019-03-19] MEDS: DOCUSATE SODIUM 10 MG/ML (10ML CUP) GTB SCH (09:39)
[2019-03-19] MEDS: AMLODIPINE 5 MG TAB GTB SCH ×2 (09:39→22:45)
[2019-03-19] MEDS: LINAGLIPTIN 5 MG TABLET GTB SCH (09:40)
[2019-03-19] MEDS: FOLIC ACID 1 MG TAB GTB SCH (09:40)
[2019-03-19] MEDS: METOPROLOL 50 MG TAB GTB SCH ×2 (09:40→22:42)
--- NOTE | 2019-03-19 13:34 | CONS ---
Assessment/Plan Assessment/Plan Hospital Course (Demo Recall) ID PROGRESS NOTE CURRENT ABX: DAY #=> MERREM #7 s/p Ampicillin, Cancidas 03/18/19 0505 03/18/19 0505 24H INTERVAL SUMMARY * DC PLANNING IN PROCESS == S/P HD * s/p bed bath now resting with eyes closed = Clinically stable, lethargic, TMAX 99.1, NAD * Indwelling: Left chest PermCath, PEG * 03/17/2019 CXR: 1. Increased left suprahilar hazy opacification may reflect pneumonia with the given history.2. Mild interstitial prominence may be acute or chronic in nature. Pulmonary congestion may be considered as well as inflammatory or infectious processes.3. Small left effusion appears to be present.4. Lung hyperinflation may be due to good inspiratory excursion although COPD and emphysema may be considered. MICRO * 03/12/2019: BCX (-) * 03/02/19 BCx (-) * 03/02/19 URINE CULTURE Final Organism 1 TYREE GLABRATA COLONY COUNT >100,000 CFU/ml * 02/23/19 BCX (-) * 02/21/19 BLOOD CULTURE Final Organism 1 ENTEROCOCCUS SPECIES * 02/19/19 (+)MRSA Nares * 02/18/19 BCx (-) * ```````````````````````````````````` * PRIOR ADMISSION * 12/20/18 URINE Cx (+) Glabrata URINE CULTURE Final Organism 1 TYREE GLABRATA COLONY COUNT 30,000 - 40,000 CFU/ml * 12/20/18 BCx (-) * 12/18/18 BCx (-) * 12/06/18 URINE Cx (+) Glabrata * 12/03/18 BCx (-) * 12/01/18 BCx (-) * 11/29/18 BCx (+) Glabrata * 11/24/18 BCX (+) Glabrata = fungemia PHYSICAL EXAMINATION: GENERAL: Afebrile, VSS, HEENT: AT, NC, anicteric NECK: Supple, trach CHEST: Equal chest rise bilaterally, without dyspnea on observation HEART: Pulse RRR ABDOMEN: Soft / NT EXTREMITIES: Warm, dry SKIN: No rash, no diaphoresis ID ASSESSMENT 83 yo F w/ DEMENTIA admit with: 1. SIRS -- low grade temps, leukocytosis resolving 2. Aspiration Pneumonitis syndrome 3. Recurrent C.GLABRATA UTIs * s/p FUNGEMIA prior admission 11/24/18 4. s/p Enterococcal bacteremia 02/22/19 -- repeat BCx (-) 5. Status post VRE bacteremia 11/24/18, status post new Pcath => RESOLVED 6. End-stage renal disease, hemodialysis dependent 7. Diabetes 8. Anemia 9. Failure to thrive - Frail cachectic w/dementia (-)MRSA Nares [Hx of prior (+)MRSA Nares] ABX ALLERGIES: KNDA INVASIVES: PIV, Left chest PermCath CURRENT ABX: DAY #=> MERREM #7 s/p Ampicillin, Cancidas ID RECOMMENDATIONS/PLAN: 1. DC Merrem after today's dose * -- She has received 7 days for recurrent ASP Syndrome and continued Merrem put her at risk for recurrent Glabrata UTI * Repeat VAG Monostat suppository post Merrem -- to off-load jennifer-yeast overgrowth from prolonged ABX course. 2. May DC when cleared by primary . Consultation Date/Type/Reason Admit Date/Time Feb 19, 2019 at 01:01 Initial Consult Date 02/23/19 Requesting Provider: JOSE RAUL ANDREWS MD Date/Time of Note DATE: 03/19/19 TIME: 13:21 Exam/Review of Systems Exam Vitals Vital Signs Date Temp Pulse Resp B/P (MAP) Pulse Ox O2 O2 Flow FiO2 Time Delivery Rate 03/19/19 72 20 98 21 10:31 03/19/19 99.1 116/58 08:31 (77) 03/19/19 Room Air 04:00 03/18/19 3.0 23:02 Intake and Output 03/18/19 03/18/19 03/19/19 1515:00 23:00 07:00 IntakeIntake Total 50 ml 610 ml OutputOutput Total 3700 ml BalanceBalance 50 ml -3700 ml 610 ml Results Result Diagram: 03/18/19 0505 03/18/19 0505 Results 24hrs Laboratory Tests Test 03/18/19 21:19 03/19/19 09:35 Bedside Glucose 126 141 Medications Medication Current Medications IV Flush (NS 3 ml) 3 ml PER PROTOCOL IV ; Start 02/19/19 at 03:30 Lorazepam (Ativan) 0.5 mg Q8H PRN GTB .ANXIETY Last administered on 03/14/19 01:15; Admin Dose 0.5 MG; Start 02/19/19 at 03:30 Ondansetron HCl (Zofran Inj) 4 mg Q6H PRN IV NAUSEA/VOMITING; Start 02/19/19 at 03:30 Acetaminophen (Tylenol Tab) 325 mg Q4H PRN GTB FOR FEVER 100AND ABOVE Last administered on 02/20/19 20:13; Admin Dose 325 MG; Start 02/19/19 at 03:30 Acetaminophen (Tylenol Tab) 650 mg Q6H PRN GTB PAIN LEVEL 1-1010 Last administered on 03/11/19 12:12; Admin Dose 650 MG; Start 02/19/19 at 03:30 Amlodipine Besylate (Norvasc) 5 mg BID GTB Last administered on 03/19/19 09:39; Admin Dose 5 MG; Start 02/19/19 at 09:00 Ascorbic Acid (Vitamin C) 500 mg DAILY GTB Last administered on 03/19/19 09:39; Admin Dose 500 MG; Start 02/19/19 at 09:00 Aspirin (Aspirin) 81 mg DAILY GTB Last administered on 02/26/19 10:20; Admin Dose 81 MG; Start 02/19/19 at 09:00; Status Hold Atorvastatin Calcium (Lipitor) 40 mg QHS GTB Last administered on 03/18/19 23:32; Admin Dose 40 MG; Start 02/19/19 at 21:00 Folic Acid (Folic Acid) 1 mg DAILY GTB Last administered on 03/19/19 09:40; Admin Dose 1 MG; Start 02/19/19 at 09:00 Hydralazine HCl (Apresoline) 25 mg Q8 GTB Last administered on 03/19/19 06:06; Admin Dose 25 MG; Start 02/19/19 at 06:00 Linagliptin (Tradjenta) 5 mg DAILY GTB Last administered on 03/19/19 09:40; Admin Dose 5 MG; Start 02/19/19 at 09:00 Lorazepam (Ativan) 0.5 mg HS PRN GTB ANXIETY Last administered on 03/16/19 21:23; Admin Dose 0.5 MG; Start 02/19/19 at 03:30 Metoprolol Tartrate (Lopressor) 50 mg BID GTB Last administered on 03/19/19 09:40; Admin Dose 50 MG; Start 02/19/19 at 09:00 Ondansetron HCl (Zofran Tab) 4 mg Q4H PRN GTB NAUSEA AND/OR VOMITING; Start 02/19/19 at 03:30 Valproate Sodium (Depakene Liquid Cup) 250 mg Q8 GTB Last administered on 03/19/19 06:06; Admin Dose 250 MG; Start 02/19/19 at 06:00 Docusate Sodium (Colace Liquid Cup) 100 mg DAILY GTB Last administered on 03/19/19 09:39; Admin Dose 100 MG; Start 02/19/19 at 09:00 Docusate Sodium (Colace Liquid Cup) 100 mg Q12H PRN GTB CONSTIPATION; Start 02/19/19 at 04:00 Acetaminophen (Tylenol Tab) 650 mg Q6H PRN GTB .PAIN 1-3 OR TEMP Last administered on 03/09/19 10:13; Admin Dose 650 MG; Start 02/19/19 at 03:35 Mupirocin (Bactroban) 1 applic BID TOP Last administered on 03/19/19 09:38; Admin Dose 1 APPLIC; Start 02/22/19 at 14:00 Insulin Glargine (Lantus) 4 units DAILY@2000 SC Last administered on 03/18/19 20:00; Admin Dose 4 UNITS; Start 02/26/19 at 20:00 Epoetin Michael-epbx (Retacrit (Esrd)) 4,000 unit MoWeFr@1700 SC Last administered on 03/18/19 17:40; Admin Dose 4,000 UNIT; Start 02/28/19 at 17:00 Olanzapine (Zyprexa) 2.5 mg DAILY GTB Last administered on 03/19/19 09:39; Admin Dose 2.5 MG; Start 03/01/19 at 09:00 Lansoprazole (Prevacid) 30 mg BID@0600,1800 GTB Last administered on 03/19/19 06:06; Admin Dose 30 MG; Start 02/28/19 at 18:00 Ferrous Sulfate (Feosol Liquid Cup) 300 mg BID GTB Last administered on 03/19/19at 09:38; Admin Dose 300 MG; Start 03/08/19 at 09:00 Albuterol/ Ipratropium (Duoneb) 3 ml Q4H RESP THERAPY HHN Last administered on 03/19/19at 10:31; Admin Dose 3 ML; Start 03/12/19 at 10:00 Albuterol/ Ipratropium (Duoneb) 3 ml Q2H RESP THERAPY PRN HHN SHORTNESS OF BREATH; Start 03/12/19 at 10:00 Meropenem/Sodium Chloride 50 ml @ 100 mls/hr Q24H IVPB Last administered on 03/18/19at 13:45; Admin Dose 100 MLS/HR; Start 03/12/19 at 14:00 Miscellaneous Information 1 ea NOTE XX ; Start 03/13/19 at 16:30 Glucose (Glutose) 15 gm Q15M PRN PO DECREASED GLUCOSE; Start 03/13/19 at 16:30 Glucose (Glutose) 22.5 gm Q15M PRN PO DECREASED GLUCOSE; Start 03/13/19 at 16:30 Dextrose (D50w Syringe) 25 ml Q15M PRN IV DECREASED GLUCOSE; Start 03/13/19 at 16:30 Dextrose (D50w Syringe) 50 ml Q15M PRN IV DECREASED GLUCOSE; Start 03/13/19 at 16:30 Glucagon (Glucagen) 1 mg Q15M PRN IM DECREASED GLUCOSE; Start 03/13/19 at 16:30 Glucose (Glutose) 15 gm Q15M PRN BUCCAL DECREASED GLUCOSE; Start 03/13/19 at 16:30 SEVERO GARCIA NP March 19, 2019 13:33
[2019-03-19] MEDS: MEROPENEM 500MG/50 ML (PMX) 50 ML IVPB SCH (13:35)
[2019-03-19] MEDS: ACETAMINOPHEN 325 MG TAB GTB PRN (13:36)
--- NOTE | 2019-03-19 14:05 | CONS ---
Assessment/Plan Assessment/Plan Hospital Course (Demo Recall) 1. Fevers, likely secondary to urinary tract infection, now bld cx positive gram + Enterococcus 2. End-stage renal disease on hemodialysis. 3. Urinary tract infection. 4. Hypertension. 5. Dementia. 6. Diabetes mellitus type II. 7. Diastolic heart failure. 8. Moderate protein energy malnutrition with cachexia. 9. Osteoarthritis. 10. GT status 11. Anemia of chronic disease 12. REsp failure, On BIPAP Assessment/Plan (Daily) c/w HD, MWFR, -c/w epoetin 3 times a week -placement issue -Perm cath is functional no bleeding -UA Consultation Date/Type/Reason Admit Date/Time Feb 19, 2019 at 01:01 Initial Consult Date 02/19/2019 Type of Consult nephrology Requesting Provider: JOSE RAUL ANDREWS MD Date/Time of Note DATE: 03/19/19 TIME: 14:03 24 HR Interval Summary Free Text/Dictation alert , communicated Exam/Review of Systems Exam Vitals Vital Signs Date Temp Pulse Resp B/P (MAP) Pulse Ox O2 O2 Flow FiO2 Time Delivery Rate 03/19/19 73 12:00 03/19/19 20 98 21 10:31 03/19/19 99.1 116/58 08:31 (77) 03/19/19 Nasal 1.0 08:05 Cannula Intake and Output 03/18/19 03/18/19 03/19/19 1515:00 23:00 07:00 IntakeIntake Total 50 ml 610 ml OutputOutput Total 3700 ml BalanceBalance 50 ml -3700 ml 610 ml Constitutional: alert, frail Eyes: nl conjunctiva Neck: supple Respiratory: diminished breath sounds Gastrointestinal: soft, other (G tube) Results Result Diagram: 03/18/19 0505 03/18/19 0505 Results 24hrs Laboratory Tests Test 03/18/19 21:19 03/19/19 09:35 Bedside Glucose 126 141 Medications Medication Current Medications IV Flush (NS 3 ml) 3 ml PER PROTOCOL IV ; Start 02/19/19 at 03:30 Lorazepam (Ativan) 0.5 mg Q8H PRN GTB .ANXIETY Last administered on 03/14/19at 01:15; Admin Dose 0.5 MG; Start 02/19/19 at 03:30 Ondansetron HCl (Zofran Inj) 4 mg Q6H PRN IV NAUSEA/VOMITING; Start 02/19/19 at 03:30 Acetaminophen (Tylenol Tab) 325 mg Q4H PRN GTB FOR FEVER 100AND ABOVE Last administered on 02/20/19 20:13; Admin Dose 325 MG; Start 02/19/19 at 03:30 Acetaminophen (Tylenol Tab) 650 mg Q6H PRN GTB PAIN LEVEL 1-10/10 Last administered on 03/19/19 13:36; Admin Dose 650 MG; Start 02/19/19 at 03:30 Amlodipine Besylate (Norvasc) 5 mg BID GTB Last administered on 03/19/19 09:39; Admin Dose 5 MG; Start 02/19/19 at 09:00 Ascorbic Acid (Vitamin C) 500 mg DAILY GTB Last administered on 03/19/19 09:39; Admin Dose 500 MG; Start 02/19/19 at 09:00 Aspirin (Aspirin) 81 mg DAILY GTB Last administered on 02/26/19 10:20; Admin Dose 81 MG; Start 02/19/19 at 09:00; Status Hold Atorvastatin Calcium (Lipitor) 40 mg QHS GTB Last administered on 03/18/19 23 :32; Admin Dose 40 MG; Start 02/19/19 at 21:00 Folic Acid (Folic Acid) 1 mg DAILY GTB Last administered on 03/19/19 09:40; Admin Dose 1 MG; Start 02/19/19 at 09:00 Hydralazine HCl (Apresoline) 25 mg Q8 GTB Last administered on 03/19/19 13:36; Admin Dose 25 MG; Start 02/19/19 at 06:00 Linagliptin (Tradjenta) 5 mg DAILY GTB Last administered on 03/19/19 09:40; Admin Dose 5 MG; Start 02/19/19 at 09:00 Lorazepam (Ativan) 0.5 mg HS PRN GTB ANXIETY Last administered on 03/16/19 21:23; Admin Dose 0.5 MG; Start 02/19/19 at 03:30 Metoprolol Tartrate (Lopressor) 50 mg BID GTB Last administered on 03/19/19 09:40; Admin Dose 50 MG; Start 02/19/19 at 09:00 Ondansetron HCl (Zofran Tab) 4 mg Q4H PRN GTB NAUSEA AND/OR VOMITING; Start 02/19/19 at 03:30 Valproate Sodium (Depakene Liquid Cup) 250 mg Q8 GTB Last administered on 03/19/19 13:35; Admin Dose 250 MG; Start 02/19/19 at 06:00 Docusate Sodium (Colace Liquid Cup) 100 mg DAILY GTB Last administered on 03/19/19 09:39; Admin Dose 100 MG; Start 02/19/19 at 09:00 Docusate Sodium (Colace Liquid Cup) 100 mg Q12H PRN GTB CONSTIPATION; Start 02/19/19 at 04:00 Acetaminophen (Tylenol Tab) 650 mg Q6H PRN GTB .PAIN 1-3 OR TEMP Last administ ered on 03/09/19 10:13; Admin Dose 650 MG; Start 02/19/19 at 03:35 Mupirocin (Bactroban) 1 applic BID TOP Last administered on 03/19/19 09:38; Admin Dose 1 APPLIC; Start 02/22/19 at 14:00 Insulin Glargine (Lantus) 4 units DAILY@2000 SC Last administered on 03/18/19 20:00; Admin Dose 4 UNITS; Start 02/26/19 at 20:00 Epoetin Michael-epbx (Retacrit (Esrd)) 4,000 unit MoWeFr@1700 SC Last administered on 03/18/19 17:40; Admin Dose 4,000 UNIT; Start 02/28/19 at 17:00 Olanzapine (Zyprexa) 2.5 mg DAILY GTB Last administered on 03/19/19 09:39; Admin Dose 2.5 MG; Start 03/01/19 at 09:00 Lansoprazole (Prevacid) 30 mg BID@0600,1800 GTB Last administered on 03/19/19 06:06; Admin Dose 30 MG; Start 02/28/19 at 18:00 Ferrous Sulfate (Feosol Liquid Cup) 300 mg BID GTB Last administered on 03/19/19 09:38; Admin Dose 300 MG; Start 03/08/19 at 09:00 Albuterol/ Ipratropium (Duoneb) 3 ml Q4H RESP THERAPY HHN Last administered on 5/11/19at 10:31; Admin Dose 3 ML; Start 03/12/19 at 10:00 Albuterol/ Ipratropium (Duoneb) 3 ml Q2H RESP THERAPY PRN HHN SHORTNESS OF BREATH; Start 03/12/19 at 10:00 Meropenem/Sodium Chloride 50 ml @ 100 mls/hr Q24H IVPB Last administered on 03/19/19at 13:35; Admin Dose 100 MLS/HR; Start 03/12/19 at 14:00 Miscellaneous Information 1 ea NOTE XX ; Start 03/13/19 at 16:30 Glucose (Glutose) 15 gm Q15M PRN PO DECREASED GLUCOSE; Start 03/13/19 at 16:30 Glucose (Glutose) 22.5 gm Q15M PRN PO DECREASED GLUCOSE; Start 03/13/19 at 16:30 Dextrose (D50w Syringe) 25 ml Q15M PRN IV DECREASED GLUCOSE; Start 03/13/19 at 16:30 Dextrose (D50w Syringe) 50 ml Q15M PRN IV DECREASED GLUCOSE; Start 03/13/19 at 16:30 Glucagon (Glucagen) 1 mg Q15M PRN IM DECREASED GLUCOSE; Start 03/13/19 at 16:30 Glucose (Glutose) 15 gm Q15M PRN BUCCAL DECREASED GLUCOSE; Start 03/13/19 at 16:30 Miconazole (Monistat-3) 1 supp HS VAG ; Start 03/19/19 at 21:00; Stop 03/21/19 at 21:01 FLAVIO CLAYTON March 19, 2019 14:05
--- NOTE | 2019-03-19 14:29 | PN ---
DATE: 03/19/2019 SUBJECTIVE: The patient seen and discharge was held, as we are awaiting [facility]p facility to take her. We will see if that happens today. PHYSICAL EXAMINATION: VITAL SIGNS: Temperature 99.1, pulse 72, respirations 20, blood pressure 116/58, saturation 98% on r oom air. GENERAL: The patient is resting comfortably. CARDIOVASCULAR: S1, S2, regular rate. LUNGS: Clear. ABDOMEN: Soft. G-tube in place. EXTREMITIES: Upper extremity trace edema. LABORATORY DATA: No new labs today. Yesterday's white count was 8.3, hemoglobin of 8.8. Last gluco se of 141 and 126. MEDICATIONS: 1. Hypoglycemia protocol. 2. Merrem as directed, last dose is today. 3. DuoNeb every 4 hours and p.r.n. 4. Ferrous sulfate 300 b.i.d. 5. Zyprexa 2.5 daily. 6. Prevacid 30 mg b.i.d. 7. Epogen with dialysis every Thursday, Thursday, Thursday. 8. Lantus 4 units daily. 9. Bactroban b.i.d. 10. Lipitor 40 every evening. 11. Norvasc 5 mg b.i.d. 12. Vitamin C 500 mg daily. 13. Folic acid 1 mg daily. 14. Tradjenta 5 mg daily. 15. Metoprolol titrate 50 b.i.d. 16. Colace 100 daily. 17. Hydralazine 25 q.8h. 18. Depakote 250 q.8h. 19. Colace p.r.n. 20. Tylenol p.r.n. 21. Ativan p.r.n. 22. Zofran p.r.n. ASSESSMENT AND PLAN: This is an 83-year-old unfortunate [place] female with history of end-stage re nal disease, vascular dementia, hypertension, diabetes mellitus who presented with fever, was found t o have UTI line sepsis, status post Perm-A-Cath exchange and had episode of respiratory failure, like ly due to aspiration pneumonia. 1. Respiratory. Continue supportive care, aspiration precaution, suctioning p.r.n. 2. Finishing course of antibiotics for pneumonia. 3. Cardiovascular, dialysis for fluid removal. 4. Anemia, off blood thinners due to need for transfusion. Continue Epogen and iron supplements. 5. Infectious disease. Finishing course of antibiotics for pneumonia, status post treatment for Can dida glabrata with Cancidas. 6. Diabetes mellitus on Tradjenta and low-dose insulin and Levemir 4 units at bedtime. 7. Psychiatric disorder. Continue Zyprexa. 8. Continue aspiration precaution. 9. The patient is DNR. 10. Plan for discharge to [facility]p facility. See discharge summary from yesterday. The teo ent is leaving, will continue to monitor closely. Appears to be stable and optimized for discharge. Dictated By: DYLON HULL/MADAN Conf#: [id number] DID#: [id number] CC: JOSE RAUL ANDREWS;*End*
[2019-03-19] MEDS ORDERED: MICONAZOLE 200 MG VAG SUPP VAG SCH (21:00)
[2019-03-19] MEDS: MICONAZOLE 100 MG VAG SUPP VAG SCH (22:49)
[2019-03-19] MEDS: INSULIN GLARGINE [LANTus] (100 UNITS/ML) SYG SC SCH (23:00)
[2019-03-19] MEDS: LORAZEPAM 0.5 MG TAB GTB PRN (23:40)
[2019-03-20] VITALS (9 sets, daily range): BP systolic 125–144; BP diastolic 59–66; PULSE 75–85; RESP 17–35
[2019-03-20] MEDS: ALBUTEROL/IPRATROPIUM (NEB) 3 ML AMP HHN SCH ×6 (00:52→20:23)
[2019-03-20] MEDS: VALPROIC ACID LIQUID CUP 250 MG/5 ML CUP GTB SCH ×3 (06:38→20:57)
[2019-03-20] MEDS: LANSOPRAZOLE 30 MG CAP GTB SCH ×2 (06:38→19:03)
[2019-03-20] MEDS: DOCUSATE SODIUM 10 MG/ML (10ML CUP) GTB SCH (09:40)
[2019-03-20] MEDS: FERROUS SULFATE 60 MG/ML 5ML CUP GTB SCH ×2 (09:40→20:57)
[2019-03-20] MEDS: ASCORBIC ACID 500 MG TAB GTB SCH (09:40)
[2019-03-20] MEDS: MUPIROCIN 2% 22 GM OINT TOP SCH ×2 (09:40→21:01)
[2019-03-20] MEDS: OLANZAPINE 2.5 MG TAB GTB SCH (09:40)
[2019-03-20] MEDS: FOLIC ACID 1 MG TAB GTB SCH (09:41)
[2019-03-20] MEDS: METOPROLOL 50 MG TAB GTB SCH ×2 (09:41→20:58)
[2019-03-20] MEDS: LINAGLIPTIN 5 MG TABLET GTB SCH (09:47)
[2019-03-20] MEDS: AMLODIPINE 5 MG TAB GTB SCH ×2 (09:48→21:01)
--- NOTE | 2019-03-20 11:33 | CONS ---
Assessment/Plan Assessment/Plan Hospital Course (Demo Recall) 1. Fevers, likely secondary to urinary tract infection, now bld cx positive gram + Enterococcus 2. End-stage renal disease on hemodialysis. 3. Urinary tract infection. 4. Hypertension. 5. Dementia. 6. Diabetes mellitus type II. 7. Diastolic heart failure. 8. Moderate protein energy malnutrition with cachexia. 9. Osteoarthritis. 10. GT status 11. Anemia of chronic disease 12. REsp failure, On BIPAP Assessment/Plan (Daily) -c/w HD, MWFR, -c/w epoetin 3 times a week -placement issue -Perm cath is functional no bleeding -UA Consultation Date/Type/Reason Admit Date/Time Feb 19, 2019 at 01:01 Initial Consult Date 02/19/2019 Type of Consult nephrology Requesting Provider: JOSE RAUL ANDREWS MD Date/Time of Note DATE: 03/20/19 TIME: 11:33 24 HR Interval Summary Free Text/Dictation smiling, alert to name Exam/Review of Systems Exam Vitals Vital Signs Date Temp Pulse Resp B/P (MAP) Pulse Ox O2 O2 Flow FiO2 Time Delivery Rate 03/20/19 80 17 98 09:21 03/20/19 98.2 125/59 07:42 (81) 03/20/19 21 05:10 03/20/19 Nasal 2.0 04:00 Cannula Intake and Output 03/19/19 03/19/19 03/20/19 1515:00 23:00 07:00 IntakeIntake Total 610 ml BalanceBalance 610 ml Exam left chest Permcath Constitutional: frail Neck: supple Respiratory: diminished breath sounds Cardiovascular: regular rate and rhythm Gastrointestinal: other (G tube) Results Result Diagram: 03/18/19 0505 03/18/19 0505 Results 24hrs Laboratory Tests Test 03/19/19 22:55 03/20/19 09:46 Bedside Glucose 148 138 Medications Medication Current Medications IV Flush (NS 3 ml) 3 ml PER PROTOCOL IV ; Start 02/19/19 at 03:30 Lorazepam (Ativan) 0.5 mg Q8H PRN GTB .ANXIETY Last administered on 03/19/19at 23:40; Admin Dose 0.5 MG; Start 02/19/19 at 03:30 Ondansetron HCl (Zofran Inj) 4 mg Q6H PRN IV NAUSEA/VOMITING; Start 02/19/19 at 03:30 Acetaminophen (Tylenol Tab) 325 mg Q4H PRN GTB FOR FEVER 100AND ABOVE Last administered on 02/20/19 20:13; Admin Dose 325 MG; Start 02/19/19 at 03:30 Acetaminophen (Tylenol Tab) 650 mg Q6H PRN GTB PAIN LEVEL 1-10/10 Last administered on 03/19/19 13:36; Admin Dose 650 MG; Start 02/19/19 at 03:30 Amlodipine Besylate (Norvasc) 5 mg BID GTB Last administered on 03/20/19 09:48; Admin Dose 5 MG; Start 02/19/19 at 09:00 Ascorbic Acid (Vitamin C) 500 mg DAILY GTB Last administered on 03/20/19 09:40; Admin Dose 500 MG; Start 02/19/19 at 09:00 Aspirin (Aspirin) 81 mg DAILY GTB Last administered on 02/26/19 10:20; Admin Dose 81 MG; Start 02/19/19 at 09:00; Status Hold Atorvastatin Calcium (Lipitor) 40 mg QHS GTB Last administered on 03/18/19 23:32; Admin Dose 40 MG; Start 02/19/19 at 21:00 Folic Acid (Folic Acid) 1 mg DAILY GTB Last administered on 03/20/19 09:41; Admin Dose 1 MG; Start 02/19/19 at 09:00 Hydralazine HCl (Apresoline) 25 mg Q8 GTB Last administered on 03/20/19 06:40; Admin Dose 25 MG; Start 02/19/19 at 06:00 Linagliptin (Tradjenta) 5 mg DAILY GTB Last administered on 03/20/19 09:47; Admin Dose 5 MG; Start 02/19/19 at 09:00 Lorazepam (Ativan) 0.5 mg HS PRN GTB ANXIETY Last administered on 03/16/19 21: 23; Admin Dose 0.5 MG; Start 02/19/19 at 03:30 Metoprolol Tartrate (Lopressor) 50 mg BID GTB Last administered on 03/20/19 09:41; Admin Dose 50 MG; Start 02/19/19 at 09:00 Ondansetron HCl (Zofran Tab) 4 mg Q4H PRN GTB NAUSEA AND/OR VOMITING; Start 02/19/19 at 03:30 Valproate Sodium (Depakene Liquid Cup) 250 mg Q8 GTB Last administered on 03/20/19 06:38; Admin Dose 250 MG; Start 02/19/19 at 06:00 Docusate Sodium (Colace Liquid Cup) 100 mg DAILY GTB Last administered on 03/20/19 09:40; Admin Dose 100 MG; Start 02/19/19 at 09:00 Docusate Sodium (Colace Liquid Cup) 100 mg Q12H PRN GTB CONSTIPATION; Start 02/19/19 at 04:00 Acetaminophen (Tylenol Tab) 650 mg Q6H PRN GTB .PAIN 1-3 OR TEMP Last administered on 03/09/19 10:13; Admin Dose 650 MG; Start 02/19/19 at 03:35 Mupirocin (Bactroban) 1 applic BID TOP Last administered on 03/20/19 09:40; Admin Dose 1 APPLIC; Start 02/22/19 at 14:00 Insulin Glargine (Lantus) 4 units DAILY@2000 SC Last administered on 03/19/19 23:00; Admin Dose 4 UNITS; Start 02/26/19 at 20:00 Epoetin Michael-epbx (Retacrit (Esrd)) 4,000 unit MoWeFr@1700 SC Last administered on 03/18/19 17:40; Admin Dose 4,000 UNIT; Start 02/28/19 at 17:00 Olanzapine (Zyprexa) 2.5 mg DAILY GTB Last administered on 03/20/19 09:40; Admin Dose 2.5 MG; Start 03/01/19 at 09:00 Lansoprazole (Prevacid) 30 mg BID@0600,1800 GTB Last administered on 03/20/19 06:38; Admin Dose 30 MG; Start 02/28/19 at 18:00 Ferrous Sulfate (Feosol Liquid Cup) 300 mg BID GTB Last administered on 03/20/19 09:40; Admin Dose 300 MG; Start 03/08/19 at 09:00 Albuterol/ Ipratropium (Duoneb) 3 ml Q4H RESP THERAPY HHN Last administered on 03/20/19 09:21; Admin Dose 3 ML; Start 03/12/19 at 10:00 Albuterol/ Ipratropium (Duoneb) 3 ml Q2H RESP THERAPY PRN HHN SHORTNESS OF BREATH; Start 03/12/19 at 10:00 Meropenem/Sodium Chloride 50 ml @ 100 mls/hr Q24H IVPB Last administered on 03/19/19at 13:35; Admin Dose 100 MLS/HR; Start 03/12/19 at 14:00 Miscellaneous Information 1 ea NOTE XX ; Start 03/13/19 at 16:30 Glucose (Glutose) 15 gm Q15M PRN PO DECREASED GLUCOSE; Start 03/13/19 at 16:30 Glucose (Glutose) 22.5 gm Q15M PRN PO DECREASED GLUCOSE; Start 03/13/19 at 16:30 Dextrose (D50w Syringe) 25 ml Q15M PRN IV DECREASED GLUCOSE; Start 03/13/19 at 16:30 Dextrose (D50w Syringe) 50 ml Q15M PRN IV DECREASED GLUCOSE; Start 03/13/19 at 16:30 Glucagon (Glucagen) 1 mg Q15M PRN IM DECREASED GLUCOSE; Start 03/13/19 at 16:30 Glucose (Glutose) 15 gm Q15M PRN BUCCAL DECREASED GLUCOSE; Start 03/13/19 at 16:30 Miconazole (Monistat-7) 1 supp HS VAG Last administered on 03/19/19at 22:49; Admin Dose 1 SUPP; Start 03/19/19 at 21:00; Stop 03/25/19 at 21:01 FLAVIO CLAYTON March 20, 2019 11:33
--- NOTE | 2019-03-20 13:30 | CONS ---
Assessment/Plan Assessment/Plan Hospital Course (Demo Recall) ID PROGRESS NOTE CURRENT ABX: DAY #=> OFF ABX MERREM #7-> DC'd 03/19 s/p Ampicillin, Cancidas 24H INTERVAL SUMMARY * DC PLANNING IN PROCESS == S/P HD yesterday -- smiling, doing well * No fevers, VSS * Indwelling: Left chest PermCath, PEG * 03/17/2019 CXR: 1. Increased left suprahilar hazy opacification may reflect pneumonia with the given history.2. Mild interstitial prominence may be acute or chronic in nature. Pulmonary congestion may be considered as well as inflammatory or infectious processes.3. Small left effusion appears to be present.4. Lung hyperinflation may be due to good inspiratory excursion although COPD and emphysema may be considered. MICRO * 03/12/2019: BCX (-) * 03/02/19 BCx (-) * 03/02/19 URINE CULTURE Final Organism 1 TYREE GLABRATA COLONY COUNT >100,000 CFU/ml * 02/23/19 BCX (-) * 02/21/19 BLOOD CULTURE Final Organism 1 ENTEROCOCCUS SPECIES * 02/19/19 (+)MRSA Nares * 02/18/19 BCx (-) * ```````````````````````````````````` * PRIOR ADMISSION * 12/20/18 URINE Cx (+) Glabrata URINE CULTURE Final Organism 1 TYREE GLABRATA COLONY COUNT 30,000 - 40,000 CFU/ml * 12/20/18 BCx (-) * 12/18/18 BCx (-) * 12/06/18 URINE Cx (+) Glabrata * 12/03/18 BCx (-) * 12/01/18 BCx (-) * 11/29/18 BCx (+) Glabrata * 11/24/18 BCX (+) Glabrata = fungemia PHYSICAL EXAMINATION: GENERAL: Afebrile, VSS, HEENT: AT, NC, anicteric NECK: Supple, trach CHEST: Equal chest rise bilaterally, without dyspnea on observation HEART: Pulse RRR ABDOMEN: Soft / NT EXTREMITIES: Warm, dry SKIN: No rash, no diaphoresis ID ASSESSMENT 83 yo F w/ DEMENTIA admit with: 1. SIRS -- low grade temps, leukocytosis resolving 2. Aspiration Pneumonitis syndrome 3. Recurrent C.GLABRATA UTIs * s/p FUNGEMIA prior admission 11/24/18 4. s/p Enterococcal bacteremia 02/22/19 -- repeat BCx (-) 5. Status post VRE bacteremia 11/24/18, status post new Pcath => RESOLVED 6. End-stage renal disease, hemodialysis dependent 7. Diabetes 8. Anemia 9. Failure to thrive - Frail cachectic w/dementia (-)MRSA Nares [Hx of prior (+)MRSA Nares] ABX ALLERGIES: KNDA INVASIVES: PIV, Left chest PermCath CURRENT ABX: DAY #=> OFF ABX MERREM #7-> DC'd 03/19 s/p Ampicillin, Cancidas ID RECOMMENDATIONS/PLAN: 1. Repeat VAG Monostat suppository post Merrem -- to off-load jennifer-yeast overgrowth from prolonged ABX course. 2. May DC when cleared by primary OFF ABX . Consultation Date/Type/Reason Admit Date/Time Feb 19, 2019 at 01:01 Initial Consult Date 02/23/19 Requesting Provider: JOSE RAUL ANDREWS MD Date/Time of Note DATE: 03/20/19 TIME: 13:28 Exam/Review of Systems Exam Vitals Vital Signs Date Temp Pulse Resp B/P (MAP) Pulse Ox O2 O2 Flow FiO2 Time Delivery Rate 03/20/19 77 17 100 12:59 03/20/19 97.9 140/66 12:09 (90) 03/20/19 Nasal 2.0 08:07 Cannula 03/20/19 21 05:10 Intake and Output 03/19/19 03/19/19 03/20/19 1515:00 23:00 07:00 IntakeIntake Total 610 ml BalanceBalance 610 ml Results Result Diagram: 03/18/19 0505 03/18/19 0505 Results 24hrs Laboratory Tests Test 03/19/19 22:55 03/20/19 09:46 Bedside Glucose 148 138 Medications Medication Current Medications IV Flush (NS 3 ml) 3 ml PER PROTOCOL IV ; Start 02/19/19 at 03:30 Lorazepam (Ativan) 0.5 mg Q8H PRN GTB .ANXIETY Last administered on 03/19/19at 23:40; Admin Dose 0.5 MG; Start 02/19/19 at 03:30 Ondansetron HCl (Zofran Inj) 4 mg Q6H PRN IV NAUSEA/VOMITING; Start 02/19/19 at 03:30 Acetaminophen (Tylenol Tab) 325 mg Q4H PRN GTB FOR FEVER 100AND ABOVE Last administered on 02/20/19 20:13; Admin Dose 325 MG; Start 02/19/19 at 03:30 Acetaminophen (Tylenol Tab) 650 mg Q6H PRN GTB PAIN LEVEL 1-1010 Last administered on 03/19/19 13:36; Admin Dose 650 MG; Start 02/19/19 at 03:30 Amlodipine Besylate (Norvasc) 5 mg BID GTB Last administered on 03/20/19 09:48; Admin Dose 5 MG; Start 02/19/19 at 09:00 Ascorbic Acid (Vitamin C) 500 mg DAILY GTB Last administered on 03/20/19 09:40; Admin Dose 500 MG; Start 02/19/19 at 09:00 Aspirin (Aspirin) 81 mg DAILY GTB Last administered on 02/26/19 10:20; Admin Dose 81 MG; Start 02/19/19 at 09:00; Status Hold Atorvastatin Calcium (Lipitor) 40 mg QHS GTB Last administered on 03/18/19 23:32; Admin Dose 40 MG; Start 02/19/19 at 21:00 Folic Acid (Folic Acid) 1 mg DAILY GTB Last administered on 03/20/19 09:41; Admin Dose 1 MG; Start 02/19/19 at 09:00 Hydralazine HCl (Apresoline) 25 mg Q8 GTB Last administered on 03/20/19 06:40; Admin Dose 25 MG; Start 02/19/19 at 06:00 Linagliptin (Tradjenta) 5 mg DAILY GTB Last administered on 03/20/19 09:47; Admin Dose 5 MG; Start 02/19/19 at 09:00 Lorazepam (Ativan) 0.5 mg HS PRN GTB ANXIETY Last administered on 03/16/19 21:23; Admin Dose 0.5 MG; Start 02/19/19 at 03:30 Metoprolol Tartrate (Lopressor) 50 mg BID GTB Last administered on 03/20/19 09:41; Admin Dose 50 MG; Start 02/19/19 at 09:00 Ondansetron HCl (Zofran Tab) 4 mg Q4H PRN GTB NAUSEA AND/OR VOMITING; Start 02/19/19 at 03:30 Valproate Sodium (Depakene Liquid Cup) 250 mg Q8 GTB Last administered on 03/20/19 06:38; Admin Dose 250 MG; Start 02/19/19 at 06:00 Docusate Sodium (Colace Liquid Cup) 100 mg DAILY GTB Last administered on 03/20/19 09:40; Admin Dose 100 MG; Start 02/19/19 at 09:00 Docusate Sodium (Colace Liquid Cup) 100 mg Q12H PRN GTB CONSTIPATION; Start 02/19/19 at 04:00 Acetaminophen (Tylenol Tab) 650 mg Q6H PRN GTB .PAIN 1-3 OR TEMP Last administered on 03/09/19 10:13; Admin Dose 650 MG; Start 02/19/19 at 03:35 Mupirocin (Bactroban) 1 applic BID TOP Last administered on 03/20/19 09:40; Admin Dose 1 APPLIC; Start 02/22/19 at 14:00 Insulin Glargine (Lantus) 4 units DAILY@2000 SC Last administered on 03/19/19 23:00; Admin Dose 4 UNITS; Start 02/26/19 at 20:00 Epoetin Michael-epbx (Retacrit (Esrd)) 4,000 unit MoWeFr@1700 SC Last administered on 03/18/19 17:40; Admin Dose 4,000 UNIT; Start 02/28/19 at 17:00 Olanzapine (Zyprexa) 2.5 mg DAILY GTB Last administered on 03/20/19 09:40; Admin Dose 2.5 MG; Start 03/01/19 at 09:00 Lansoprazole (Prevacid) 30 mg BID@0600,1800 GTB Last administered on 03/20/19 06:38; Admin Dose 30 MG; Start 02/28/19 at 18:00 Ferrous Sulfate (Feosol Liquid Cup) 300 mg BID GTB Last administered on 03/20/19 09:40; Admin Dose 300 MG; Start 03/08/19 at 09:00 Albuterol/ Ipratropium (Duoneb) 3 ml Q4H RESP THERAPY HHN Last administered on 03/20/19at 12:59; Admin Dose 3 ML; Start 03/12/19 at 10:00 Albuterol/ Ipratropium (Duoneb) 3 ml Q2H RESP THERAPY PRN HHN SHORTNESS OF BREATH; Start 03/12/19 at 10:00 Meropenem/Sodium Chloride 50 ml @ 100 mls/hr Q24H IVPB Last administered on 03/19/19at 13:35; Admin Dose 100 MLS/HR; Start 03/12/19 at 14:00 Miscellaneous Information 1 ea NOTE XX ; Start 03/13/19 at 16:30 Glucose (Glutose) 15 gm Q15M PRN PO DECREASED GLUCOSE; Start 03/13/19 at 16:30 Glucose (Glutose) 22.5 gm Q15M PRN PO DECREASED GLUCOSE; Start 03/13/19 at 16:30 Dextrose (D50w Syringe) 25 ml Q15M PRN IV DECREASED GLUCOSE; Start 03/13/19 at 16:30 Dextrose (D50w Syringe) 50 ml Q15M PRN IV DECREASED GLUCOSE; Start 03/13/19 at 16:30 Glucagon (Glucagen) 1 mg Q15M PRN IM DECREASED GLUCOSE; Start 03/13/19 at 16:30 Glucose (Glutose) 15 gm Q15M PRN BUCCAL DECREASED GLUCOSE; Start 03/13/19 at 16:30 Miconazole (Monistat-7) 1 supp HS VAG Last administered on 03/19/19at 22:49; Admin Dose 1 SUPP; Start 03/19/19 at 21:00; Stop 03/25/19 at 21:01 SEVERO GARCIA NP March 20, 2019 13:30
[2019-03-20] MEDS: MEROPENEM 500MG/50 ML (PMX) 50 ML IVPB SCH (14:32)
--- NOTE | 2019-03-20 18:29 | PN ---
DATE: 03/20/2019 SUBJECTIVE: The patient is seen, still awaiting transfer to [facility]. manager of patient is working on it. The patient is alert, overall appears to be comfortable lying in bed comfortably i n no distress. PHYSICAL EXAMINATION: VITAL SIGNS: Temperature 98, pulse 72, respirations 17, blood pressure 144/65, saturation 98%. HEENT: Normocephalic, pale. CARDIOVASCULAR: S1, S2, regular rate. LUNGS: Clear. ABDOMEN: Soft. G-tube in place. EXTREMITIES: No clubbing, cyanosis or edema. LABORATORY DATA: No new labs today. Labs on 03/18/2019 showed a white count of 8.3, hemoglobin of 8 .8. Last glucose has been 128, 148 and 141. MEDICATIONS: 1. Monistat vaginally bedtime. 2. Hypoglycemia as directed. 3. Merrem q.24 hours. 4. Albuterol DuoNeb as directed every 4 hours. 5. Ferrous sulfate 300 b.i.d. 6. Zyprexa 2.5 daily. 7. Prevacid 30 mg b.i.d. 8. Epogen as directed with dialysis. 9. Lantus 4 units daily. 10. Bactroban ointment b.i.d. 11. Lipitor 40 mg at bedtime. 12. Norvasc 5 mg b.i.d. 13. Vitamin C 500 mg daily. 14. Folic acid 1 mg daily. 15. Tradjenta 5 mg daily. 16. Lopressor 50 b.i.d. 17. Colace 100 daily. 18. Hydralazine 25 q.8. 19. Depakote 250 q.8. 20. Colace as directed. ASSESSMENT AND PLAN: This is an 83-year-old unfortunate [place] female with history of end-stage re nal disease, vascular dementia, hypertension, diabetes mellitus, who presented with fever, was found to have urinary tract infection, line sepsis, status post PermCath exchange, also episode of respirat ory failure likely due to aspiration pneumonia, on Merrem. 1. Respiratory: Continue aspiration precaution. Finishing course of antibiotics for aspiration pne umonia. Suctioning p.r.n. Head elevation to prevent aspiration. 2. Cardiovascular: No evidence of fluid overload state. Dialysis for fluid removal. Noted chest x -ray. 3. Anemia. Off blood thinners due to ongoing need for transfusion. Continue Epogen and iron supple ments and p.r.n. transfusion. 4. Infectious disease. Continue Merrem and also Monistat was given. 5. Diabetes mellitus. Glucose level in the low 100s. Continue Tradjenta and Levemir 4 units at bed time. 6. Psychiatric disorder. Resume Zyprexa. 7. Continue aspiration precaution. Head elevation. 8. Stool softeners are being provided as needed. DISPOSITION: To [facility] hopefully tomorrow. The patient is overall stable. We claudia l follow. Dictated By: DYLON HULL/NTS Conf#: [id number] DID#: [id number] CC: JOSE RAUL ANDREWS;*End*
[2019-03-20] MEDS: ATORVASTATIN 40 MG TAB GTB SCH (20:57)
[2019-03-20] MEDS: MICONAZOLE 100 MG VAG SUPP VAG SCH (20:58)
[2019-03-20] MEDS: INSULIN GLARGINE [LANTus] (100 UNITS/ML) SYG SC SCH (21:03)
[2019-03-21] VITALS (25 sets, daily range): BP systolic 81–167; BP diastolic 47–70; PULSE 79–90; RESP 18–20
[2019-03-21] MEDS: ALBUTEROL/IPRATROPIUM (NEB) 3 ML AMP HHN SCH ×6 (00:49→22:18)
[2019-03-21] MEDS: VALPROIC ACID LIQUID CUP 250 MG/5 ML CUP GTB SCH ×3 (06:15→21:47)
[2019-03-21] MEDS: LANSOPRAZOLE 30 MG CAP GTB SCH ×2 (06:15→17:00)
--- NOTE | 2019-03-21 08:45 | CONS ---
Assessment/Plan Assessment/Plan Hospital Course (Demo Recall) 83 yo female presented with severe anemia Interval hx: no signs of GI bleeding. Tolerating tube feeds. No changes. Pleasantly confused. Waiting on snf placement. 1. Severe anemia,acute on chronic -likely due to chronic disease -retic 2.6, ferritin 4490, neg FOB (multiple FOB) 2. End-stage renal disease on dialysis. 3. Urinary tract infection. -positive yeast 4. Dysphagia, status post percutaneous endoscopic gastrostomy tube placement. 5. Hypertension. 6. Behavioral disorder. PLAN: Monitor HH and for GI bleeding Aspiration precautions Monitor residuals q 6 hours Pt examined and plan of care discussed with Dr. Baird. Consultation Date/Type/Reason Admit Date/Time Feb 19, 2019 at 01:01 Initial Consult Date Requesting Provider: JOSE RAUL ANDREWS MD Date/Time of Note DATE: 03/21/19 TIME: 08:43 Exam/Review of Systems Exam Vitals Vital Signs Date Temp Pulse Resp B/P (MAP) Pulse Ox O2 O2 Flow FiO2 Time Delivery Rate 03/21/19 98.3 90 20 146/63 99 07:33 (90) 03/21/19 21 04:36 03/21/19 Room Air 03:23 03/20/19 2.0 08:07 Intake and Output 03/20/19 03/20/19 03/21/19 1515:00 23:00 07:00 IntakeIntake Total 560 ml BalanceBalance 560 ml Constitutional: alert Head: normocephalic Eyes: nl sclera, PERRL Respiratory: clear to auscultation Cardiovascular: regular rate and rhythm Gastrointestinal: soft, non-tender 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: confused Results Result Diagram: 03/18/19 0505 03/18/19 0505 Results 24hrs Laboratory Tests Test 03/20/19 09:46 03/20/19 20:48 Bedside Glucose 138 145 Medications Medication Current Medications IV Flush (NS 3 ml) 3 ml PER PROTOCOL IV ; Start 02/19/19 at 03:30 Lorazepam (Ativan) 0.5 mg Q8H PRN GTB .ANXIETY Last administered on 03/19/19at 23:40; Admin Dose 0.5 MG; Start 02/19/19 at 03:30 Ondansetron HCl (Zofran Inj) 4 mg Q6H PRN IV NAUSEA/VOMITING; Start 02/19/19 at 03:30 Acetaminophen (Tylenol Tab) 325 mg Q4H PRN GTB FOR FEVER 100AND ABOVE Last administered on 02/20/19 20:13; Admin Dose 325 MG; Start 02/19/19 at 03:30 Acetaminophen (Tylenol Tab) 650 mg Q6H PRN GTB PAIN LEVEL 1-10/10 Last administered on 03/19/19 13:36; Admin Dose 650 MG; Start 02/19/19 at 03:30 Amlodipine Besylate (Norvasc) 5 mg BID GTB Last administered on 03/20/19 21:01; Admin Dose 5 MG; Start 02/19/19 at 09:00 Ascorbic Acid (Vitamin C) 500 mg DAILY GTB Last administered on 03/20/19 09:40; Admin Dose 500 MG; Start 02/19/19 at 09:00 Aspirin (Aspirin) 81 mg DAILY GTB Last administered on 02/26/19 10:20; Admin Dose 81 MG; Start 02/19/19 at 09:00; Status Hold Atorvastatin Calcium (Lipitor) 40 mg QHS GTB Last administered on 03/20/19 20:57; Admin Dose 40 MG; Start 02/19/19 at 21:00 Folic Acid (Folic Acid) 1 mg DAILY GTB Last administered on 03/20/19 09:41; Admin Dose 1 MG; Start 02/19/19 at 09:00 Hydralazine HCl (Apresoline) 25 mg Q8 GTB Last administered on 03/21/19 06:15; Admin Dose 25 MG; Start 02/19/19 at 06:00 Linagliptin (Tradjenta) 5 mg DAILY GTB Last administered on 03/20/19 09:47; Admin Dose 5 MG; Start 02/19/19 at 09:00 Lorazepam (Ativan) 0.5 mg HS PRN GTB ANXIETY Last administered on 03/16/19 21:23; Admin Dose 0.5 MG; Start 02/19/19 at 03:30 Metoprolol Tartrate (Lopressor) 50 mg BID GTB Last administered on 03/20/19 20:58; Admin Dose 50 MG; Start 02/19/19 at 09:00 Ondansetron HCl (Zofran Tab) 4 mg Q4H PRN GTB NAUSEA AND/OR VOMITING; Start 02/19/19 at 03:30 Valproate Sodium (Depakene Liquid Cup) 250 mg Q8 GTB Last administered on 03/21/19 06:15; Admin Dose 250 MG; Start 02/19/19 at 06:00 Docusate Sodium (Colace Liquid Cup) 100 mg DAILY GTB Last administered on 03/20/19 09:40; Admin Dose 100 MG; Start 02/19/19 at 09:00 Docusate Sodium (Colace Liquid Cup) 100 mg Q12H PRN GTB CONSTIPATION; Start 02/19/19 at 04:00 Acetaminophen (Tylenol Tab) 650 mg Q6H PRN GTB .PAIN 1-3 OR TEMP Last administered on 03/09/19 10:13; Admin Dose 650 MG; Start 02/19/19 at 03:35 Mupirocin (Bactroban) 1 applic BID TOP Last administered on 03/20/19 21:01; Admin Dose 1 APPLIC; Start 02/22/19 at 14:00 Insulin Glargine (Lantus) 4 units DAILY@2000 SC Last administered on 03/20/19 21:03; Admin Dose 4 UNITS; Start 02/26/19 at 20:00 Epoetin Michael-epbx (Retacrit (Esrd)) 4,000 unit MoWeFr@1700 SC Last administered on 03/18/19 17:40; Admin Dose 4,000 UNIT; Start 02/28/19 at 17:00 Olanzapine (Zyprexa) 2.5 mg DAILY GTB Last administered on 03/20/19 09:40; Admin Dose 2.5 MG; Start 03/01/19 at 09:00 Lansoprazole (Prevacid) 30 mg BID@0600,1800 GTB Last administered on 03/21/19 06:15; Admin Dose 30 MG; Start 02/28/19 at 18:00 Ferrous Sulfate (Feosol Liquid Cup) 300 mg BID GTB Last administered on 03/20/19 20:57; Admin Dose 300 MG; Start 03/08/19 at 09:00 Albuterol/ Ipratropium (Duoneb) 3 ml Q4H RESP THERAPY HHN Last administered on 03/21/19 04:35; Admin Dose 3 ML; Start 03/12/19 at 10:00 Albuterol/ Ipratropium (Duoneb) 3 ml Q2H RESP THERAPY PRN HHN SHORTNESS OF BREATH; Start 03/12/19 at 10:00 Meropenem/Sodium Chloride 50 ml @ 100 mls/hr Q24H IVPB Last administered on 03/20/19at 14:32; Admin Dose 100 MLS/HR; Start 03/12/19 at 14:00 Miscellaneous Information 1 ea NOTE XX ; Start 03/13/19 at 16:30 Glucose (Glutose) 15 gm Q15M PRN PO DECREASED GLUCOSE; Start 03/13/19 at 16:30 Glucose (Glutose) 22.5 gm Q15M PRN PO DECREASED GLUCOSE; Start 03/13/19 at 16:30 Dextrose (D50w Syringe) 25 ml Q15M PRN IV DECREASED GLUCOSE; Start 03/13/19 at 16:30 Dextrose (D50w Syringe) 50 ml Q15M PRN IV DECREASED GLUCOSE; Start 03/13/19 at 16:30 Glucagon (Glucagen) 1 mg Q15M PRN IM DECREASED GLUCOSE; Start 03/13/19 at 16:30 Glucose (Glutose) 15 gm Q15M PRN BUCCAL DECREASED GLUCOSE; Start 03/13/19 at 16:30 Miconazole (Monistat-7) 1 supp HS VAG Last administered on 03/20/19at 20:58; Admin Dose 1 SUPP; Start 03/19/19 at 21:00; Stop 03/25/19 at 21:01 TONY VENCES March 21, 2019 08:45
[2019-03-21] MEDS: FERROUS SULFATE 60 MG/ML 5ML CUP GTB SCH ×2 (09:16→21:47)
[2019-03-21] MEDS: DOCUSATE SODIUM 10 MG/ML (10ML CUP) GTB SCH (09:16)
[2019-03-21] MEDS: OLANZAPINE 2.5 MG TAB GTB SCH (09:17)
[2019-03-21] MEDS: LINAGLIPTIN 5 MG TABLET GTB SCH (09:17)
[2019-03-21] MEDS: AMLODIPINE 5 MG TAB GTB SCH ×2 (09:17→21:46)
[2019-03-21] MEDS: ASCORBIC ACID 500 MG TAB GTB SCH (09:18)
[2019-03-21] MEDS: METOPROLOL 50 MG TAB GTB SCH ×2 (09:18→21:47)
[2019-03-21] MEDS: MUPIROCIN 2% 22 GM OINT TOP SCH ×2 (09:18→21:48)
[2019-03-21] MEDS: FOLIC ACID 1 MG TAB GTB SCH (09:18)
--- NOTE | 2019-03-21 12:15 | CONS ---
Assessment/Plan Assessment/Plan Assessment/Plan (Daily) 1. Fevers, likely secondary to urinary tract infection, now bld cx positive gram + Enterococcus 2. End-stage renal disease on hemodialysis. 3. Urinary tract infection. 4. Hypertension. 5. Dementia. 6. Diabetes mellitus type II. 7. Diastolic heart failure. 8. Moderate protein energy malnutrition with cachexia. 9. Osteoarthritis. 10. GT status 11. Anemia of chronic disease 12. REsp failure, On BIPAP Assessment/Plan (Daily) c/w HD, MWFR, -c/w epoetin 3 times a week -placement issue -Perm cath is functional no bleeding Consultation Date/Type/Reason Admit Date/Time Feb 19, 2019 at 01:01 Initial Consult Date Requesting Provider: JOSE RAUL ANDREWS MD Date/Time of Note DATE: 03/21/19 TIME: 12:10 24 HR Interval Summary Free Text/Dictation She is doing well awake alert Exam/Review of Systems Exam Vitals Vital Signs Date Temp Pulse Resp B/P (MAP) Pulse Ox O2 O2 Flow FiO2 Time Delivery Rate 03/21/19 80 17 100 12:08 03/21/19 98.8 149/66 11:33 (93) 03/21/19 21 04:36 03/21/19 Room Air 03:23 03/20/19 2.0 08:07 Intake and Output 03/20/19 03/20/19 03/21/19 1515:00 23:00 07:00 IntakeIntake Total 560 ml BalanceBalance 560 ml Exam pt awake,alert permcath dec breath sounds bases Results Result Diagram: 03/18/19 0505 03/18/19 0505 Results 24hrs Laboratory Tests Test 03/20/19 20:48 Bedside Glucose 145 Medications Medication Current Medications IV Flush (NS 3 ml) 3 ml PER PROTOCOL IV ; Start 02/19/19 at 03:30 Lorazepam (Ativan) 0.5 mg Q8H PRN GTB .ANXIETY Last administered on 03/19/19at 23:40; Admin Dose 0.5 MG; Start 02/19/19 at 03:30 Ondansetron HCl (Zofran Inj) 4 mg Q6H PRN IV NAUSEA/VOMITING; Start 02/19/19 at 03:30 Acetaminophen (Tylenol Tab) 325 mg Q4H PRN GTB FOR FEVER 100AND ABOVE Last administered on 02/20/19 20:13; Admin Dose 325 MG; Start 02/19/19 at 03:30 Acetaminophen (Tylenol Tab) 650 mg Q6H PRN GTB PAIN LEVEL 1-08/18 Last administ ered on 03/19/19 13:36; Admin Dose 650 MG; Start 02/19/19 at 03:30 Amlodipine Besylate (Norvasc) 5 mg BID GTB Last administered on 03/21/19 09:17; Admin Dose 5 MG; Start 02/19/19 at 09:00 Ascorbic Acid (Vitamin C) 500 mg DAILY GTB Last administered on 03/21/19 09:18; Admin Dose 500 MG; Start 02/19/19 at 09:00 Aspirin (Aspirin) 81 mg DAILY GTB Last administered on 02/26/19 10:20; Admin Dose 81 MG; Start 02/19/19 at 09:00; Status Hold Atorvastatin Calcium (Lipitor) 40 mg QHS GTB Last administered on 03/20/19 20:57; Admin Dose 40 MG; Start 02/19/19 at 21:00 Folic Acid (Folic Acid) 1 mg DAILY GTB Last administered on 03/21/19 09:18; Admin Dose 1 MG; Start 02/19/19 at 09:00 Hydralazine HCl (Apresoline) 25 mg Q8 GTB Last administered on 03/21/19 06:15; Admin Dose 25 MG; Start 02/19/19 at 06:00 Linagliptin (Tradjenta) 5 mg DAILY GTB Last administered on 03/21/19 09:17; Admin Dose 5 MG; Start 02/19/19 at 09:00 Lorazepam (Ativan) 0.5 mg HS PRN GTB ANXIETY Last administered on 03/16/19 21:23; Admin Dose 0.5 MG; Start 02/19/19 at 03:30 Metoprolol Tartrate (Lopressor) 50 mg BID GTB Last administered on 03/21/19 09:18; Admin Dose 50 MG; Start 02/19/19 at 09:00 Ondansetron HCl (Zofran Tab) 4 mg Q4H PRN GTB NAUSEA AND/OR VOMITING; Start 02/19/19 at 03:30 Valproate Sodium (Depakene Liquid Cup) 250 mg Q8 GTB Last administered on 03/21/19 06:15; Admin Dose 250 MG; Start 02/19/19 at 06:00 Docusate Sodium (Colace Liquid Cup) 100 mg DAILY GTB Last administered on 03/21/19 09:16; Admin Dose 100 MG; Start 02/19/19 at 09:00 Docusate Sodium (Colace Liquid Cup) 100 mg Q12H PRN GTB CONSTIPATION; Start 02/19/19 at 04:00 Acetaminophen (Tylenol Tab) 650 mg Q6H PRN GTB .PAIN 1-3 OR TEMP Last administered on 03/09/19 10:13; Admin Dose 650 MG; Start 02/19/19 at 03:35 Mupirocin (Bactroban) 1 applic BID TOP Last administered on 03/21/19 09:18; Admin Dose 1 APPLIC; Start 02/22/19 at 14:00 Insulin Glargine (Lantus) 4 units DAILY@2000 SC Last administered on 03/20/19 21:03; Admin Dose 4 UNITS; Start 02/26/19 at 20:00 Epoetin Michael-epbx (Retacrit (Esrd)) 4,000 unit MoWeFr@1700 SC Last administered on 03/18/19 17:40; Admin Dose 4,000 UNIT; Start 02/28/19 at 17:00 Olanzapine (Zyprexa) 2.5 mg DAILY GTB Last administered on 03/21/19 09:17; Admin Dose 2.5 MG; Start 03/01/19 at 09:00 Lansoprazole (Prevacid) 30 mg BID@0600,1800 GTB Last administered on 03/21/19 06:15; Admin Dose 30 MG; Start 02/28/19 at 18:00 Ferrous Sulfate (Feosol Liquid Cup) 300 mg BID GTB Last administered on 03/21/19 09:16; Admin Dose 300 MG; Start 03/08/19 at 09:00 Albuterol/ Ipratropium (Duoneb) 3 ml Q4H RESP THERAPY HHN Last administered on 03/21/19 12:08; Admin Dose 3 ML; Start 03/12/19 at 10:00 Albuterol/ Ipratropium (Duoneb) 3 ml Q2H RESP THERAPY PRN HHN SHORTNESS OF BREATH; Start 03/12/19 at 10:00 Meropenem/Sodium Chloride 50 ml @ 100 mls/hr Q24H IVPB Last administered on 10/27at 14:32; Admin Dose 100 MLS/HR; Start 03/12/19 at 14:00 Miscellaneous Information 1 ea NOTE XX ; Start 03/13/19 at 16:30 Glucose (Glutose) 15 gm Q15M PRN PO DECREASED GLUCOSE; Start 03/13/19 at 16:30 Glucose (Glutose) 22.5 gm Q15M PRN PO DECREASED GLUCOSE; Start 03/13/19 at 16:30 Dextrose (D50w Syringe) 25 ml Q15M PRN IV DECREASED GLUCOSE; Start 03/13/19 at 16:30 Dextrose (D50w Syringe) 50 ml Q15M PRN IV DECREASED GLUCOSE; Start 03/13/19 at 16:30 Glucagon (Glucagen) 1 mg Q15M PRN IM DECREASED GLUCOSE; Start 03/13/19 at 16:30 Glucose (Glutose) 15 gm Q15M PRN BUCCAL DECREASED GLUCOSE; Start 03/13/19 at 16:30 Miconazole (Monistat-7) 1 supp HS VAG Last administered on 03/20/19at 20:58; Admin Dose 1 SUPP; Start 03/19/19 at 21:00; Stop 03/25/19 at 21:01 Miscellaneous Information (*Order Clarification Bulletin) MEDICATION REQUIRES CLARIFICATI... Q8H XX ; Start 03/21/19 at 09:30 JOSE RAUL ANDREWS MD March 21, 2019 12:15
--- NOTE | 2019-03-21 13:50 | PN ---
DATE: 03/21/2019 SUBJECTIVE: The patient was seen, appears to be comfortable, slightly anxious. Hand mittens were pl aced. Case was discussed with nursing staff. PHYSICAL EXAMINATION: VITAL SIGNS: Temperature 98.8, pulse 85, respirations 17, blood pressure 149/66, saturation 100% on room air. Her BMI 16. GENERAL: In no acute distress. HEENT: Normocephalic, atraumatic. Pale, frail. Decreased dentition. CARDIOVASCULAR: S1, S2, regular rate. LUNGS: Clear. Left IJ PermCath. ABDOMEN: Soft. G-tube in place. EXTREMITIES: Trace edema in upper extremities. The patient is moving all extremities. NEUROLOGIC: Overall, frail and cachectic. LABORATORY DATA: White count is 8.3, hemoglobin 8.8, hematocrit 28, platelet count of 235, neutrophi ls 71%, lymphs 9%. This was from 03/18/2019. Last glucose of 145, 128 and 148. The patient's recen t blood cultures were negative. MEDICATIONS: Reviewed. They include: 1. Monistat suppositories at bedtime. 2. Merrem IV q.24 hours. 3. DuoNeb every 4 plus p.r.n. 4. Ferrous sulfate 300 b.i.d. 5. Zyprexa 2.5 daily. 6. Prevacid 30 mg b.i.d. 7. Epogen as directed. 8. Lantus 4 units daily at night. 9. Bactroban ointment b.i.d. 10. Lipitor 40 mg at bedtime. 11. Norvasc 5 mg b.i.d. 12. Vitamin C 500 mg daily. 13. Folic acid 1 mg daily. 14. Tradjenta 5 mg daily. 15. Metoprolol titrate 50 b.i.d. 16. Colace 100 daily. 17. Hydralazine 25 q.8. 18. Depakote as directed. 19. Colace 100 q.12 p.r.n. 20. Tylenol p.r.n. 21. Ativan p.r.n. 22. Zofran p.r.n. DIAGNOSTIC DATA: Chest x-ray on 03/17/2019 shows increased left perihilar hazy opacification, may re flect pneumonia given history, mild interstitial prominence may be acute or chronic in nature, pulmon familia congestion may be considered, lung hyperinflation may be due to COPD and emphysema, small left pl eural effusion, appears to be stable. ASSESSMENT AND PLAN: This is an unfortunate 83-year-old [place]ien female with end-stage renal disease , vascular dementia, hypertension, diabetes mellitus, anemia, who presented with sepsis bacteremia, l ine sepsis, recurrent urinary tract infections and recent aspiration pneumonia. 1. Respiratory: Remains on Merrem. Follow up chest x-ray. White count is normal. The patient is afebrile, clinically better. Oxygen p.r.n. 2. Cardiovascular: Off blood thinners due to recurrent need for transfusion and blood loss. GI is following. Blood pressure is under control. 3. Anemia. Continue Epogen and iron supplements and transfuse p.r.n. 4. End-stage renal disease. Dialysis every Thursday, Thursday and Thursday. Dialysis to be done today . 5. Infectious disease: Continue Merrem and Monistat. Follow up labs tomorrow and chest x-ray. 6. Diabetes mellitus. Continue Tradjenta and Levemir 4 units. Glucose levels are in the 100. 7. Psychiatric disorder. Resume Zyprexa. 8. Fall precautions. Hand mittens as needed and a sitter as needed. Case was discussed with [facility] staff. 9. 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 10. Overall, clinically stable for discharge. We will follow. Dictated By: DYLON HULL/MADAN Conf#: [id number] DID#: [id number] CC: JOSE RAUL ANDREWS;*End*
--- NOTE | 2019-03-21 15:27 | CONS ---
Assessment/Plan Assessment/Plan Hospital Course (Demo Recall) No events, looks comfortable Indwelling: Left subclavian permacath, PEG Microbiology: Urine culture on admission grew Dominique glabrata, blood culture grew Enterococcus Chest x-ray on admission revealed no definite evidence of pneumonia or CHF Physical examination: This is a chronically ill-appearing wasted elderly woman who is in no distress. Head atraumatic normocephalic. Neck is supple. Chest rise symmetrical patient is mildly tachypneic with expiratory wheezes. Heart: S1-S2, tachycardic. Abdomen soft bowel sounds present. Extremities without cyanosis edema. Assessment: 1. Acute hypoxemia ==> combination of aspiration and fluid overload 2. Status post recurrent UTI and bacteremia 4. End-stage renal disease, hemodialysis dependent 5. Anemia 6. 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 Plan: Remains stable, continue present care, aspiration precautions Consultation Date/Type/Reason Admit Date/Time Feb 19, 2019 at 01:01 Initial Consult Date Type of Consult id Requesting Provider: JOSE RAUL ANDREWS MD Date/Time of Note DATE: 03/21/19 TIME: 15:27 Exam/Review of Systems Exam Vitals Vital Signs Date Temp Pulse Resp B/P (MAP) Pulse Ox O2 O2 Flow FiO2 Time Delivery Rate 03/21/19 98.0 80 20 150/68 99 14:04 (95) 03/21/19 21 04:36 03/21/19 Room Air 03:23 03/20/19 2.0 08:07 Intake and Output 03/20/19 03/20/19 03/21/19 1515:00 23:00 07:00 IntakeIntake Total 560 ml BalanceBalance 560 ml Results Result Diagram: 03/18/19 0505 03/18/19 0505 Results 24hrs Laboratory Tests Test 03/20/19 20:48 Bedside Glucose 145 Medications Medication Current Medications IV Flush (NS 3 ml) 3 ml PER PROTOCOL IV ; Start 02/19/19 at 03:30 Lorazepam (Ativan) 0.5 mg Q8H PRN GTB .ANXIETY Last administered on 03/19/19at 23:40; Admin Dose 0.5 MG; Start 02/19/19 at 03:30 Ondansetron HCl (Zofran Inj) 4 mg Q6H PRN IV NAUSEA/VOMITING; Start 02/19/19 at 03:30 Acetaminophen (Tylenol Tab) 325 mg Q4H PRN GTB FOR FEVER 100AND ABOVE Last administered on 02/20/19 20:13; Admin Dose 325 MG; Start 02/19/19 at 03:30 Acetaminophen (Tylenol Tab) 650 mg Q6H PRN GTB PAIN LEVEL 1-10/10 Last administered on 03/19/19 13:36; Admin Dose 650 MG; Start 02/19/19 at 03:30 Amlodipine Besylate (Norvasc) 5 mg BID GTB Last administered on 03/21/19 09:17; Admin Dose 5 MG; Start 02/19/19 at 09:00 Ascorbic Acid (Vitamin C) 500 mg DAILY GTB Last administered on 03/21/19 09:18; Admin Dose 500 MG; Start 02/19/19 at 09:00 Aspirin (Aspirin) 81 mg DAILY GTB Last administered on 02/26/19 10:20; Admin Dose 81 MG; Start 02/19/19 at 09:00; Status Hold Atorvastatin Calcium (Lipitor) 40 mg QHS GTB Last administered on 03/20/19 20:57; Admin Dose 40 MG; Start 02/19/19 at 21:00 Folic Acid (Folic Acid) 1 mg DAILY GTB Last administered on 03/21/19 09:18; Admin Dose 1 MG; Start 02/19/19 at 09:00 Hydralazine HCl (Apresoline) 25 mg Q8 GTB Last administered on 03/21/19 06:15; Admin Dose 25 MG; Start 02/19/19 at 06:00 Linagliptin (Tradjenta) 5 mg DAILY GTB Last administered on 03/21/19 09:17; Admin Dose 5 MG; Start 02/19/19 at 09:00 Lorazepam (Ativan) 0.5 mg HS PRN GTB ANXIETY Last administered on 03/16/19 21:23; Admin Dose 0.5 MG; Start 02/19/19 at 03:30 Metoprolol Tartrate (Lopressor) 50 mg BID GTB Last administered on 03/21/19 09:18; Admin Dose 50 MG; Start 02/19/19 at 09:00 Ondansetron HCl (Zofran Tab) 4 mg Q4H PRN GTB NAUSEA AND/OR VOMITING; Start 02/19/19 at 03:30 Valproate Sodium (Depakene Liquid Cup) 250 mg Q8 GTB Last administered on 03/21/19 06:15; Admin Dose 250 MG; Start 02/19/19 at 06:00 Docusate Sodium (Colace Liquid Cup) 100 mg DAILY GTB Last administered on 03/21/19 09:16; Admin Dose 100 MG; Start 02/19/19 at 09:00 Docusate Sodium (Colace Liquid Cup) 100 mg Q12H PRN GTB CONSTIPATION; Start 02/19/19 at 04:00 Acetaminophen (Tylenol Tab) 650 mg Q6H PRN GTB .PAIN 1-3 OR TEMP Last ad ministered on 03/09/19 10:13; Admin Dose 650 MG; Start 02/19/19 at 03:35 Mupirocin (Bactroban) 1 applic BID TOP Last administered on 03/21/19 09:18; Admin Dose 1 APPLIC; Start 02/22/19 at 14:00 Insulin Glargine (Lantus) 4 units DAILY@2000 SC Last administered on 03/20/19 21:03; Admin Dose 4 UNITS; Start 02/26/19 at 20:00 Epoetin Michael-epbx (Retacrit (Esrd)) 4,000 unit MoWeFr@1700 SC Last administered on 03/18/19 17:40; Admin Dose 4,000 UNIT; Start 02/28/19 at 17:00 Olanzapine (Zyprexa) 2.5 mg DAILY GTB Last administered on 03/21/19 09:17; Admin Dose 2.5 MG; Start 03/01/19 at 09:00 Lansoprazole (Prevacid) 30 mg BID@0600,1800 GTB Last administered on 03/21/19 06:15; Admin Dose 30 MG; Start 02/28/19 at 18:00 Ferrous Sulfate (Feosol Liquid Cup) 300 mg BID GTB Last administered on 03/09 09:16; Admin Dose 300 MG; Start 03/08/19 at 09:00 Albuterol/ Ipratropium (Duoneb) 3 ml Q4H RESP THERAPY HHN Last administered on 03/21/19 12:08; Admin Dose 3 ML; Start 03/12/19 at 10:00 Albuterol/ Ipratropium (Duoneb) 3 ml Q2H RESP THERAPY PRN HHN SHORTNESS OF BREATH; Start 03/12/19 at 10:00 Meropenem/Sodium Chloride 50 ml @ 100 mls/hr Q24H IVPB Last administered on 03/20/19at 14:32; Admin Dose 100 MLS/HR; Start 03/12/19 at 14:00 Miscellaneous Information 1 ea NOTE XX ; Start 03/13/19 at 16:30 Glucose (Glutose) 15 gm Q15M PRN PO DECREASED GLUCOSE; Start 03/13/19 at 16:30 Glucose (Glutose) 22.5 gm Q15M PRN PO DECREASED GLUCOSE; Start 03/13/19 at 16:30 Dextrose (D50w Syringe) 25 ml Q15M PRN IV DECREASED GLUCOSE; Start 03/13/19 at 16:30 Dextrose (D50w Syringe) 50 ml Q15M PRN IV DECREASED GLUCOSE; Start 03/13/19 at 16:30 Glucagon (Glucagen) 1 mg Q15M PRN IM DECREASED GLUCOSE; Start 03/13/19 at 16:30 Glucose (Glutose) 15 gm Q15M PRN BUCCAL DECREASED GLUCOSE; Start 03/13/19 at 16:30 Miconazole (Monistat-7) 1 supp HS VAG Last administered on 03/20/19at 20:58; Admin Dose 1 SUPP; Start 03/19/19 at 21:00; Stop 03/25/19 at 21:01 Miscellaneous Information (*Order Clarification Bulletin) MEDICATION REQUIRES CLARIFICATI... Q8H XX ; Start 03/21/19 at 09:30 PHYLICIA HOLCOMB NP March 21, 2019 15:27
[2019-03-21] MEDS: MEROPENEM 500MG/50 ML (PMX) 50 ML IVPB SCH (16:15)
[2019-03-21] MEDS: EPOETIN ALFA-EPBX (ESRD) 4,000 UNIT/ML VIAL SC SCH (17:02)
[2019-03-21] MEDS: MICONAZOLE 100 MG VAG SUPP VAG SCH (21:00)
[2019-03-21] MEDS: ATORVASTATIN 40 MG TAB GTB SCH (21:46)
[2019-03-21] MEDS: INSULIN GLARGINE [LANTus] (100 UNITS/ML) SYG SC SCH (21:51)
[2019-03-21] MEDS: (Nursing Note) XX SCH (22:00)
[2019-03-22] VITALS (16 sets, daily range): BP systolic 107–154; BP diastolic 54–71; PULSE 64–86; RESP 16–20
[2019-03-22] MEDS: ALBUTEROL/IPRATROPIUM (NEB) 3 ML AMP HHN SCH ×6 (01:56→20:31)
[2019-03-22] MEDS: VALPROIC ACID LIQUID CUP 250 MG/5 ML CUP GTB SCH ×3 (06:15→21:42)
[2019-03-22] MEDS: LANSOPRAZOLE 30 MG CAP GTB SCH ×2 (06:15→18:27)
--- NOTE | 2019-03-22 08:33 | CONS ---
Assessment/Plan Assessment/Plan Hospital Course (Demo Recall) 83 yo female presented with severe anemia 1. Severe anemia,acute on chronic -likely due to chronic disease -retic 2.6, ferritin 4490, neg FOB (multiple FOB) 2. End-stage renal disease on dialysis. 3. Urinary tract infection. -positive yeast 4. Dysphagia, status post percutaneous endoscopic gastrostomy tube placement. 5. Hypertension. 6. Behavioral disorder. PLAN: Consider heme onc consult for anemia Monitor HH and for GI bleeding Aspiration precautions Monitor residuals q 6 hours Pt examined and plan of care discussed with Dr. Baird. Consultation Date/Type/Reason Admit Date/Time Feb 19, 2019 at 01:01 Initial Consult Date Requesting Provider: JOSE RAUL ANDREWS MD Date/Time of Note DATE: 03/22/19 TIME: 08:32 24 HR Interval Summary Free Text/Dictation no acute changes Exam/Review of Systems Exam Vitals Vital Signs Date Temp Pulse Resp B/P (MAP) Pulse Ox O2 O2 Flow FiO2 Time Delivery Rate 03/22/19 98.0 73 20 131/63 100 07:37 (85) 03/22/19 21 01:47 03/21/19 Room Air 22:26 03/20/19 2.0 08:07 Intake and Output 03/21/19 03/21/19 03/22/19 1414:59 22:59 06:59 IntakeIntake Total 760 ml 580 ml OutputOutput Total 2300 ml 1900 ml BalanceBalance -1540 ml -1320 ml Constitutional: alert Psych: no complaints Eyes: nl sclera, PERRL Respiratory: normal air movement Cardiovascular: regular rate and rhythm Gastrointestinal: soft, non-tender, bowel sounds 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: confused Results Result Diagram: 03/22/19 0547 03/22/19 0547 Results 24hrs Laboratory Tests Test 03/21/19 20:56 03/22/19 05:47 03/22/19 05:48 Bedside Glucose 115 White Blood Count 8.7 Red Blood Count 3.45 L Hemoglobin 9.1 L Hematocrit 29.4 L Mean Corpuscular Volume 85.2 Mean Corpuscular Hemoglobin 26.4 L Mean Corpuscular Hemoglobin Concent 31.0 L Red Cell Distribution Width 16.5 H Platelet Count 216 Mean Platelet Volume 12.6 H Immature Granulocytes % 1.000 H Neutrophils % 77.0 Lymphocytes % 8.0 L Monocytes % 11.1 H Eosinophils % 2.6 Basophils % 0.3 Nucleated Red Blood Cells % 0.8 H Immature Granulocytes # 0.090 H Neutrophils # 6.7 Lymphocytes # 0.7 L Monocytes # 1.0 H Eosinophils # 0.2 Basophils # 0.0 Nucleated Red Blood Cells # 0.1 H Sodium Level 140 Potassium Level 3.8 Chloride Level 106 Carbon Dioxide Level 28 Anion Gap 6 Blood Urea Nitrogen 35 H Creatinine 1.10 H Est Glomerular Filtrat Rate mL/min Glucose Level 127 Calcium Level 8.7 Phosphorus Level 2.6 Magnesium Level 2.2 Medications Medication Current Medications IV Flush (NS 3 ml) 3 ml PER PROTOCOL IV ; Start 02/19/19 at 03:30 Lorazepam (Ativan) 0.5 mg Q8H PRN GTB .ANXIETY Last administered on 03/19/19 23:40; Admin Dose 0.5 MG; Start 02/19/19 at 03:30 Ondansetron HCl (Zofran Inj) 4 mg Q6H PRN IV NAUSEA/VOMITING; Start 02/19/19 at 03:30 Acetaminophen (Tylenol Tab) 325 mg Q4H PRN GTB FOR FEVER 100AND ABOVE Last administered on 02/20/19 20:13; Admin Dose 325 MG; Start 02/19/19 at 03:30 Acetaminophen (Tylenol Tab) 650 mg Q6H PRN GTB PAIN LEVEL 1-10/10 Last administered on 03/19/19 13:36; Admin Dose 650 MG; Start 02/19/19 at 03:30 Amlodipine Besylate (Norvasc) 5 mg BID GTB Last administered on 03/21/19 21:46; Admin Dose 5 MG; Start 02/19/19 at 09:00 Ascorbic Acid (Vitamin C) 500 mg DAILY GTB Last administered on 03/21/19 09:18; Admin Dose 500 MG; Start 02/19/19 at 09:00 Aspirin (Aspirin) 81 mg DAILY GTB Last administered on 02/26/19 10:20; Admin Dose 81 MG; Start 02/19/19 at 09:00; Status Hold Atorvastatin Calcium (Lipitor) 40 mg QHS GTB Last administered on 03/21/19 21:46; Admin Dose 40 MG; Start 02/19/19 at 21:00 Folic Acid (Folic Acid) 1 mg DAILY GTB Last administered on 03/21/19 09:18; Admin Dose 1 MG; Start 02/19/19 at 09:00 Hydralazine HCl (Apresoline) 25 mg Q8 GTB Last administered on 03/22/19 06:15; Admin Dose 25 MG; Start 02/19/19 at 06:00 Linagliptin (Tradjenta) 5 mg DAILY GTB Last administered on 03/21/19 09:17; Admin Dose 5 MG; Start 02/19/19 at 09:00 Lorazepam (Ativan) 0.5 mg HS PRN GTB ANXIETY Last administered on 03/16/19 21:23; Admin Dose 0.5 MG; Start 02/19/19 at 03:30 Metoprolol Tartrate (Lopressor) 50 mg BID GTB Last administered on 03/21/19 21:47; Admin Dose 50 MG; Start 02/19/19 at 09:00 Ondansetron HCl (Zofran Tab) 4 mg Q4H PRN GTB NAUSEA AND/OR VOMITING; Start 02/19/19 at 03:30 Valproate Sodium (Depakene Liquid Cup) 250 mg Q8 GTB Last administered on 03/22/19 06:15; Admin Dose 250 MG; Start 02/19/19 at 06:00 Docusate Sodium (Colace Liquid Cup) 100 mg DAILY GTB Last administered on 03/21/19 09:16; Admin Dose 100 MG; Start 02/19/19 at 09:00 Docusate Sodium (Colace Liquid Cup) 100 mg Q12H PRN GTB CONSTIPATION; Start 02/19/19 at 04:00 Acetaminophen (Tylenol Tab) 650 mg Q6H PRN GTB .PAIN 1-3 OR TEMP Last administered on 03/09/19 10:13; Admin Dose 650 MG; Start 02/19/19 at 03:35 Mupirocin (Bactroban) 1 applic BID TOP Last administered on 03/21/19 21:48; Admin Dose 1 APPLIC; Start 02/22/19 at 14:00 Insulin Glargine (Lantus) 4 units DAILY@2000 SC Last administered on 03/21/19 21:51; Admin Dose 4 UNITS; Start 02/26/19 at 20:00 Epoetin Michael-epbx (Retacrit (Esrd)) 4,000 unit MoWeFr@1700 SC Last administered on 03/21/19at 17:02; Admin Dose 4,000 UNIT; Start 02/28/19 at 17:00 Olanzapine (Zyprexa) 2.5 mg DAILY GTB Last administered on 03/21/19at 09:17; Admin Dose 2.5 MG; Start 03/01/19 at 09:00 Lansoprazole (Prevacid) 30 mg BID@0600,1800 GTB Last administered on 03/22/19at 06:15; Admin Dose 30 MG; Start 02/28/19 at 18:00 Ferrous Sulfate (Feosol Liquid Cup) 300 mg BID GTB Last administered on 03/21/19at 21:47; Admin Dose 300 MG; Start 03/08/19 at 09:00 Albuterol/ Ipratropium (Duoneb) 3 ml Q4H RESP THERAPY HHN Last administered on 03/22/19at 05:06; Admin Dose 3 ML; Start 03/12/19 at 10:00 Albuterol/ Ipratropium (Duoneb) 3 ml Q2H RESP THERAPY PRN HHN SHORTNESS OF BREATH; Start 03/12/19 at 10:00 Meropenem/Sodium Chloride 50 ml @ 100 mls/hr Q24H IVPB Last administered on 03/21/19at 16:15; Admin Dose 100 MLS/HR; Start 03/12/19 at 14:00 Miscellaneous Information 1 ea NOTE XX ; Start 03/13/19 at 16:30 Glucose (Glutose) 15 gm Q15M PRN PO DECREASED GLUCOSE; Start 03/13/19 at 16:30 Glucose (Glutose) 22.5 gm Q15M PRN PO DECREASED GLUCOSE; Start 03/13/19 at 16:30 Dextrose (D50w Syringe) 25 ml Q15M PRN IV DECREASED GLUCOSE; Start 03/13/19 at 16:30 Dextrose (D50w Syringe) 50 ml Q15M PRN IV DECREASED GLUCOSE; Start 03/13/19 at 16:30 Glucagon (Glucagen) 1 mg Q15M PRN IM DECREASED GLUCOSE; Start 03/13/19 at 16:30 Glucose (Glutose) 15 gm Q15M PRN BUCCAL DECREASED GLUCOSE; Start 03/13/19 at 16:30 Miconazole (Monistat-7) 1 supp HS VAG Last administered on 03/20/19at 20:58; Admin Dose 1 SUPP; Start 03/19/19 at 21:00; Stop 03/25/19 at 21:01 Miscellaneous Information (*Order Clarification Bulletin) MEDICATION REQUIRES CLARIFICATI... Q8H XX ; Start 03/21/19 at 09:30 Miscellaneous Information 1 ea BID XX ; Start 03/21/19 at 22:00 TONY VENCES March 22, 2019 08:33
[2019-03-22] MEDS: (Nursing Note) XX SCH ×2 (09:00→21:00)
[2019-03-22] MEDS: OLANZAPINE 2.5 MG TAB GTB SCH (11:12)
[2019-03-22] MEDS: FERROUS SULFATE 60 MG/ML 5ML CUP GTB SCH ×2 (11:12→21:42)
[2019-03-22] MEDS: DOCUSATE SODIUM 10 MG/ML (10ML CUP) GTB SCH (11:12)
[2019-03-22] MEDS: AMLODIPINE 5 MG TAB GTB SCH ×2 (11:13→21:42)
[2019-03-22] MEDS: FOLIC ACID 1 MG TAB GTB SCH (11:13)
[2019-03-22] MEDS: METOPROLOL 50 MG TAB GTB SCH ×2 (11:13→21:41)
[2019-03-22] MEDS: ASCORBIC ACID 500 MG TAB GTB SCH (11:13)
[2019-03-22] MEDS: MUPIROCIN 2% 22 GM OINT TOP SCH ×2 (11:14→21:43)
[2019-03-22] MEDS: LINAGLIPTIN 5 MG TABLET GTB SCH (11:18)
--- NOTE | 2019-03-22 15:27 | CONS ---
Assessment/Plan Assessment/Plan Assessment/Plan (Daily) 1. Fevers, likely secondary to urinary tract infection, now bld cx positive gram + Enterococcus resolved 2. End-stage renal disease on hemodialysis. 3. Urinary tract infection. 4. Hypertension. 5. Dementia. 6. Diabetes mellitus type II. 7. Diastolic heart failure. 8. Moderate protein energy malnutrition with cachexia. 9. Osteoarthritis. 10. GT status 11. Anemia of chronic disease 12. REsp failure, On BIPAP Assessment/Plan (Daily) c/w HD, MWFR, -c/w epoetin 3 times a week -placement issue -Perm cath is functional no bleeding Consultation Date/Type/Reason Admit Date/Time Feb 19, 2019 at 01:01 Initial Consult Date Requesting Provider: JOSE RAUL ANDREWS MD Date/Time of Note DATE: 03/22/19 TIME: 15:26 24 HR Interval Summary Free Text/Dictation no acute events pending placement Exam/Review of Systems Exam Vitals Vital Signs Date Temp Pulse Resp B/P (MAP) Pulse Ox O2 O2 Flow FiO2 Time Delivery Rate 03/22/19 98.0 71 20 131/64 99 Room Air 14:05 (86) 03/22/19 21 10:25 03/20/19 2.0 08:07 Intake and Output 03/21/19 03/21/19 03/22/19 1515:00 23:00 07:00 IntakeIntake Total 760 ml 580 ml OutputOutput Total 2300 ml 1900 ml BalanceBalance -1540 ml -1320 ml Exam little lethargic permcath dec breath sounds bases Results Result Diagram: 03/22/19 0547 03/22/19 0547 Results 24hrs Laboratory Tests Test 03/21/19 20:56 03/22/19 05:47 03/22/19 05:48 03/22/19 11:17 Bedside Glucose 115 156 White Blood Count 8.7 Red Blood Count 3.45 L Hemoglobin 9.1 L Hematocrit 29.4 L Mean Corpuscular 85.2 Volume Mean Corpuscular 26.4 L Hemoglobin Mean Corpuscular 31.0 L Hemoglobin Concent Red Cell 16.5 H Distribution Width Platelet Count 216 Mean Platelet Volume 12.6 H Immature 1.000 H Granulocytes % Neutrophils % 77.0 Lymphocytes % 8.0 L Monocytes % 11.1 H Eosinophils % 2.6 Basophils % 0.3 Nucleated Red Blood 0.8 H Cells % Immature 0.090 H Granulocytes # Neutrophils # 6.7 Lymphocytes # 0.7 L Monocytes # 1.0 H Eosinophils # 0.2 Basophils # 0.0 Nucleated Red Blood 0.1 H Cells # Sodium Level 140 Potassium Level 3.8 Chloride Level 106 Carbon Dioxide Level 28 Anion Gap 6 Blood Urea Nitrogen 35 H Creatinine 1.10 H Est Glomerular Filtrat Rate mL/min Glucose Level 127 Calcium Level 8.7 Phosphorus Level 2.6 Magnesium Level 2.2 Medications Medication Current Medications IV Flush (NS 3 ml) 3 ml PER PROTOCOL IV ; Start 02/19/19 at 03:30 Lorazepam (Ativan) 0.5 mg Q8H PRN GTB .ANXIETY Last administered on 03/19/19 23:40; Admin Dose 0.5 MG; Start 02/19/19 at 03:30 Ondansetron HCl (Zofran Inj) 4 mg Q6H PRN IV NAUSEA/VOMITING; Start 02/19/19 at 03:30 Acetaminophen (Tylenol Tab) 325 mg Q4H PRN GTB FOR FEVER 100AND ABOVE Last administered on 02/20/19 20:13; Admin Dose 325 MG; Start 02/19/19 at 03:30 Acetaminophen (Tylenol Tab) 650 mg Q6H PRN GTB PAIN LEVEL 1-10/10 Last administered on 03/19/19 13:36; Admin Dose 650 MG; Start 02/19/19 at 03:30 Amlodipine Besylate (Norvasc) 5 mg BID GTB Last administered on 03/22/19 11:13; Admin Dose 5 MG; Start 02/19/19 at 09:00 Ascorbic Acid (Vitamin C) 500 mg DAILY GTB Last administered on 03/22/19 11:13; Admin Dose 500 MG; Start 02/19/19 at 09:00 Aspirin (Aspirin) 81 mg DAILY GTB Last administered on 02/26/19 10:20; Admin Dose 81 MG; Start 02/19/19 at 09:00; Status Hold Atorvastatin Calcium (Lipitor) 40 mg QHS GTB Last administered on 03/21/19 21:46; Admin Dose 40 MG; Start 02/19/19 at 21:00 Folic Acid (Folic Acid) 1 mg DAILY GTB Last administered on 03/22/19 11:13; Admin Dose 1 MG; Start 02/19/19 at 09:00 Hydralazine HCl (Apresoline) 25 mg Q8 GTB Last administered on 03/22/19 15:22; Admin Dose 25 MG; Start 02/19/19 at 06:00 Linagliptin (Tradjenta) 5 mg DAILY GTB Last administered on 03/22/19 11:18; Admin Dose 5 MG; Start 02/19/19 at 09:00 Lorazepam (Ativan) 0.5 mg HS PRN GTB ANXIETY Last administered on 03/16/19 21:23; Admin Dose 0.5 MG; Start 02/19/19 at 03:30 Metoprolol Tartrate (Lopressor) 50 mg BID GTB Last administered on 03/22/19 11:13; Admin Dose 50 MG; Start 02/19/19 at 09:00 Ondansetron HCl (Zofran Tab) 4 mg Q4H PRN GTB NAUSEA AND/OR VOMITING; Start 02/19/19 at 03:30 Valproate Sodium (Depakene Liquid Cup) 250 mg Q8 GTB Last administered on 03/22/19 15:21; Admin Dose 250 MG; Start 02/19/19 at 06:00 Docusate Sodium (Colace Liquid Cup) 100 mg DAILY GTB Last administered on 03/22/19 11:12; Admin Dose 100 MG; Start 02/19/19 at 09:00 Docusate Sodium (Colace Liquid Cup) 100 mg Q12H PRN GTB CONSTIPATION; Start 02/19/19 at 04:00 Acetaminophen (Tylenol Tab) 650 mg Q6H PRN GTB .PAIN 1-3 OR TEMP Last administered on 03/09/19 10:13; Admin Dose 650 MG; Start 02/19/19 at 03:35 Mupirocin (Bactroban) 1 applic BID TOP Last administered on 03/22/19 11:14; Admin Dose 1 APPLIC; Start 02/22/19 at 14:00 Insulin Glargine (Lantus) 4 units DAILY@2000 SC Last administered on 03/21/19 21:51; Admin Dose 4 UNITS; Start 02/26/19 at 20:00 Epoetin Michael-epbx (Retacrit (Esrd)) 4,000 unit MoWeFr@1700 SC Last administered on 03/21/19at 17:02; Admin Dose 4,000 UNIT; Start 02/28/19 at 17:00 Olanzapine (Zyprexa) 2.5 mg DAILY GTB Last administered on 03/22/19at 11:12; Admin Dose 2.5 MG; Start 03/01/19 at 09:00 Lansoprazole (Prevacid) 30 mg BID@0600,1800 GTB Last administered on 03/22/19at 06:15; Admin Dose 30 MG; Start 02/28/19 at 18:00 Ferrous Sulfate (Feosol Liquid Cup) 300 mg BID GTB Last administered on 03/22/19at 11:12; Admin Dose 300 MG; Start 03/08/19 at 09:00 Albuterol/ Ipratropium (Duoneb) 3 ml Q4H RESP THERAPY HHN Last administered on 03/22/19at 10:23; Admin Dose 3 ML; Start 03/12/19 at 10:00 Albuterol/ Ipratropium (Duoneb) 3 ml Q2H RESP THERAPY PRN HHN SHORTNESS OF BREATH; Start 03/12/19 at 10:00 Miscellaneous Information 1 ea NOTE XX ; Start 03/13/19 at 16:30 Glucose (Glutose) 15 gm Q15M PRN PO DECREASED GLUCOSE; Start 03/13/19 at 16:30 Glucose (Glutose) 22.5 gm Q15M PRN PO DECREASED GLUCOSE; Start 03/13/19 at 16:30 Dextrose (D50w Syringe) 25 ml Q15M PRN IV DECREASED GLUCOSE; Start 03/13/19 at 16:30 Dextrose (D50w Syringe) 50 ml Q15M PRN IV DECREASED GLUCOSE; Start 03/13/19 at 16:30 Glucagon (Glucagen) 1 mg Q15M PRN IM DECREASED GLUCOSE; Start 03/13/19 at 16:30 Glucose (Glutose) 15 gm Q15M PRN BUCCAL DECREASED GLUCOSE; Start 03/13/19 at 16:30 Miconazole (Monistat-7) 1 supp HS VAG Last administered on 03/20/19at 20:58; Admin Dose 1 SUPP; Start 03/19/19 at 21:00; Stop 03/25/19 at 21:01 Miscellaneous Information (*Order Clarification Bulletin) MEDICATION REQUIRES CLARIFICATI... Q8H XX ; Start 03/21/19 at 09:30 Miscellaneous Information 1 ea BID XX ; Start 03/21/19 at 22:00 JOSE RAUL ANDREWS MD March 22, 2019 15:27
--- NOTE | 2019-03-22 15:31 | CONS ---
Assessment/Plan Assessment/Plan Hospital Course (Demo Recall) No events, looks comfortable Indwelling: Left subclavian permacath, PEG Microbiology: Urine culture on admission grew Dominique glabrata, blood culture grew Enterococcus Chest x-ray on admission revealed no definite evidence of pneumonia or CHF Physical examination: This is a chronically ill-appearing wasted elderly woman who is in no distress. Head atraumatic normocephalic. Neck is supple. Chest rise symmetrical patient is mildly tachypneic with expiratory wheezes. Heart: S1-S2, tachycardic. Abdomen soft bowel sounds present. Extremities without cyanosis edema. Assessment: 1. Acute hypoxemia ==> combination of aspiration and fluid overload 2. Status post recurrent UTI and bacteremia 4. End-stage renal disease, hemodialysis dependent 5. Anemia 6. 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 Plan: Remains stable, continue present care, aspiration precautions, dc abx Consultation Date/Type/Reason Admit Date/Time Feb 19, 2019 at 01:01 Initial Consult Date Type of Consult id Requesting Provider: JOSE RAUL ANDREWS MD Date/Time of Note DATE: 03/22/19 TIME: 15:30 Exam/Review of Systems Exam Vitals Vital Signs Date Temp Pulse Resp B/P (MAP) Pulse Ox O2 O2 Flow FiO2 Time Delivery Rate 03/22/19 98.0 71 20 131/64 99 Room Air 14:05 (86) 03/22/19 21 10:25 03/20/19 2.0 08:07 Intake and Output 03/21/19 03/21/19 03/22/19 1515:00 23:00 07:00 IntakeIntake Total 760 ml 580 ml OutputOutput Total 2300 ml 1900 ml BalanceBalance -1540 ml -1320 ml Results Result Diagram: 03/22/19 0547 03/22/19 0547 Results 24hrs Laboratory Tests Test 03/21/19 20:56 03/22/19 05:47 03/22/19 05:48 03/22/19 11:17 Bedside Glucose 115 156 White Blood Count 8.7 Red Blood Count 3.45 L Hemoglobin 9.1 L Hematocrit 29.4 L Mean Corpuscular 85.2 Volume Mean Corpuscular 26.4 L Hemoglobin Mean Corpuscular 31.0 L Hemoglobin Concent Red Cell 16.5 H Distribution Width Platelet Count 216 Mean Platelet Volume 12.6 H Immature 1.000 H Granulocytes % Neutrophils % 77.0 Lymphocytes % 8.0 L Monocytes % 11.1 H Eosinophils % 2.6 Basophils % 0.3 Nucleated Red Blood 0.8 H Cells % Immature 0.090 H Granulocytes # Neutrophils # 6.7 Lymphocytes # 0.7 L Monocytes # 1.0 H Eosinophils # 0.2 Basophils # 0.0 Nucleated Red Blood 0.1 H Cells # Sodium Level 140 Potassium Level 3.8 Chloride Level 106 Carbon Dioxide Level 28 Anion Gap 6 Blood Urea Nitrogen 35 H Creatinine 1.10 H Est Glomerular Filtrat Rate mL/min Glucose Level 127 Calcium Level 8.7 Phosphorus Level 2.6 Magnesium Level 2.2 Medications Medication Current Medications IV Flush (NS 3 ml) 3 ml PER PROTOCOL IV ; Start 02/19/19 at 03:30 Lorazepam (Ativan) 0.5 mg Q8H PRN GTB .ANXIETY Last administered on 03/19/19 23:40; Admin Dose 0.5 MG; Start 02/19/19 at 03:30 Ondansetron HCl (Zofran Inj) 4 mg Q6H PRN IV NAUSEA/VOMITING; Start 02/19/19 at 03:30 Acetaminophen (Tylenol Tab) 325 mg Q4H PRN GTB FOR FEVER 100AND ABOVE Last administered on 02/20/19 20:13; Admin Dose 325 MG; Start 02/19/19 at 03:30 Acetaminophen (Tylenol Tab) 650 mg Q6H PRN GTB PAIN LEVEL 1-10/10 Last administered on 03/19/19 13:36; Admin Dose 650 MG; Start 02/19/19 at 03:30 Amlodipine Besylate (Norvasc) 5 mg BID GTB Last administered on 03/22/19 11:13; Admin Dose 5 MG; Start 02/19/19 at 09:00 Ascorbic Acid (Vitamin C) 500 mg DAILY GTB Last administered on 03/22/19 11:13; Admin Dose 500 MG; Start 02/19/19 at 09:00 Aspirin (Aspirin) 81 mg DAILY GTB Last administered on 02/26/19 10:20; Admin Dose 81 MG; Start 02/19/19 at 09:00; Status Hold Atorvastatin Calcium (Lipitor) 40 mg QHS GTB Last administered on 03/21/19 21:46; Admin Dose 40 MG; Start 02/19/19 at 21:00 Folic Acid (Folic Acid) 1 mg DAILY GTB Last administered on 03/22/19 11:13; Admin Dose 1 MG; Start 02/19/19 at 09:00 Hydralazine HCl (Apresoline) 25 mg Q8 GTB Last administered on 03/22/19 15:22; Admin Dose 25 MG; Start 02/19/19 at 06:00 Linagliptin (Tradjenta) 5 mg DAILY GTB Last administered on 03/22/19 11:18; Admin Dose 5 MG; Start 02/19/19 at 09:00 Lorazepam (Ativan) 0.5 mg HS PRN GTB ANXIETY Last administered on 03/16/19 21:23; Admin Dose 0.5 MG; Start 02/19/19 at 03:30 Metoprolol Tartrate (Lopressor) 50 mg BID GTB Last administered on 03/22/19 11:13; Admin Dose 50 MG; Start 02/19/19 at 09:00 Ondansetron HCl (Zofran Tab) 4 mg Q4H PRN GTB NAUSEA AND/OR VOMITING; Start 02/19/19 at 03:30 Valproate Sodium (Depakene Liquid Cup) 250 mg Q8 GTB Last administered on 03/22/19 15:21; Admin Dose 250 MG; Start 02/19/19 at 06:00 Docusate Sodium (Colace Liquid Cup) 100 mg DAILY GTB Last administered on 03/22/19 11:12; Admin Dose 100 MG; Start 02/19/19 at 09:00 Docusate Sodium (Colace Liquid Cup) 100 mg Q12H PRN GTB CONSTIPATION; Start 02/19/19 at 04:00 Acetaminophen (Tylenol Tab) 650 mg Q6H PRN GTB .PAIN 1-3 OR TEMP Last administered on 03/09/19 10:13; Admin Dose 650 MG; Start 02/19/19 at 03:35 Mupirocin (Bactroban) 1 applic BID TOP Last administered on 03/22/19 11:14; Admin Dose 1 APPLIC; Start 02/22/19 at 14:00 Insulin Glargine (Lantus) 4 units DAILY@2000 SC Last administered on 5/13/19at 21:51; Admin Dose 4 UNITS; Start 02/26/19 at 20:00 Epoetin Michael-epbx (Retacrit (Esrd)) 4,000 unit MoWeFr@1700 SC Last administered on 03/21/19at 17:02; Admin Dose 4,000 UNIT; Start 02/28/19 at 17:00 Olanzapine (Zyprexa) 2.5 mg DAILY GTB Last administered on 03/22/19at 11:12; Admin Dose 2.5 MG; Start 03/01/19 at 09:00 Lansoprazole (Prevacid) 30 mg BID@0600,1800 GTB Last administered on 03/22/19at 06:15; Admin Dose 30 MG; Start 02/28/19 at 18:00 Ferrous Sulfate (Feosol Liquid Cup) 300 mg BID GTB Last administered on 03/22/19at 11:12; Admin Dose 300 MG; Start 03/08/19 at 09:00 Albuterol/ Ipratropium (Duoneb) 3 ml Q4H RESP THERAPY HHN Last administered on 03/22/19at 10:23; Admin Dose 3 ML; Start 03/12/19 at 10:00 Albuterol/ Ipratropium (Duoneb) 3 ml Q2H RESP THERAPY PRN HHN SHORTNESS OF BREATH; Start 03/12/19 at 10:00 Miscellaneous Information 1 ea NOTE XX ; Start 03/13/19 at 16:30 Glucose (Glutose) 15 gm Q15M PRN PO DECREASED GLUCOSE; Start 03/13/19 at 16:30 Glucose (Glutose) 22.5 gm Q15M PRN PO DECREASED GLUCOSE; Start 03/13/19 at 16:30 Dextrose (D50w Syringe) 25 ml Q15M PRN IV DECREASED GLUCOSE; Start 03/13/19 at 16:30 Dextrose (D50w Syringe) 50 ml Q15M PRN IV DECREASED GLUCOSE; Start 03/13/19 at 16:30 Glucagon (Glucagen) 1 mg Q15M PRN IM DECREASED GLUCOSE; Start 03/13/19 at 16:30 Glucose (Glutose) 15 gm Q15M PRN BUCCAL DECREASED GLUCOSE; Start 03/13/19 at 16:30 Miconazole (Monistat-7) 1 supp HS VAG Last administered on 03/20/19at 20:58; Admin Dose 1 SUPP; Start 03/19/19 at 21:00; Stop 03/25/19 at 21:01 Miscellaneous Information (*Order Clarification Bulletin) MEDICATION REQUIRES CLARIFICATI... Q8H XX ; Start 03/21/19 at 09:30 Miscellaneous Information 1 ea BID XX ; Start 03/21/19 at 22:00 PHYLICIA HOLCOMB NP March 22, 2019 15:31
[2019-03-22] MEDS: MICONAZOLE 100 MG VAG SUPP VAG SCH (21:00)
[2019-03-22] MEDS: ATORVASTATIN 40 MG TAB GTB SCH (21:41)
[2019-03-22] MEDS: INSULIN GLARGINE [LANTus] (100 UNITS/ML) SYG SC SCH (21:50)
[2019-03-23] VITALS (16 sets, daily range): BP systolic 121–148; BP diastolic 54–69; PULSE 67–82; RESP 16–20
[2019-03-23] MEDS: ALBUTEROL/IPRATROPIUM (NEB) 3 ML AMP HHN SCH ×6 (01:03→21:01)
[2019-03-23] MEDS: LANSOPRAZOLE 30 MG CAP GTB SCH ×2 (05:06→17:09)
--- NOTE | 2019-03-23 06:33 | PN ---
DATE: 03/22/2019 SUBJECTIVE: The patient seen, awaiting placement at a [facility] facility: VITAL SIGNS: Temperature 98, pulse 76, respirations 16, blood pressure 130/63, saturation 96% on tammy m air. GENERAL: No acute distress, normocephalic, atraumatic. Pale, temporal wasting with decreased . CARDIOVASCULAR: S1, S2. Left IJ Perm-A-Cath. EXTREMITIES: No clubbing, cyanosis, or edema. LABORATORY DATA: White count 8.7, hemoglobin 9.1, hematocrit 29, platelet count of 216, neutrophils 77%, lymphocyte 8%. Chemistry: Sodium is 140, potassium 3.8, chloride 106, bicarbonate 20, BUN 35, creatinine , glucose 127. MEDICATIONS: Include: 1. suppository at bedtime. 2. Hypoglycemic protocol. 3. Merrem daily. 4. DuoNeb as directed q.4h. 5. 300 b.i.d. 3. Zyprexa 2.5 b.i.d. 4. Prevacid 20 mg b.i.d. 5. Epogen as directed. 6. Lantus 4 units daily. 7. Bactroban b.i.d. 8. Lipitor 40 q. at bedtime. 9. Norvasc 10 mg daily. 10. Vitamin C 500 mg daily. 11. Folic acid 1 mg daily. 12. Tradjenta 5 mg daily. 13. Lopressor 50 b.i.d. 14. Colace 100 daily. 15. Hydralazine 25 at bedtime. 16. Depakote 250 . 17. . 18. Zofran . ASSESSMENT AND PLAN: This is an unfortunate 83-year-old [place] female with end-stage renal disease , vascular dementia, hypertension, diabetes mellitus, anemia, presented with sepsis bacteremia, line sepsis, recurrent UTIs and recent aspiration pneumonia. 1. Respiratory. Remains on Merrem. Followup chest x-ray. Currently afebrile with normal white cou nt. O2 p.r.n. Continue aspiration precautions. 2. Cardiovascular. Off blood thinners due to need for transfusion and blood loss, blood pressure is stable. 3. Anemia. Continue Epogen and iron supplements. Transfuse p.r.n. 4. End-stage renal disease, dialysis every Thursday, Thursday, Thursday. 5. Infectious disease on Merrem and Monistat. 6. Diabetes mellitus on Tradjenta and Levemir. Glucose level in the 100s. 7. Psychiatric disorder. Continue Zyprexa. 8. Fall precautions with hand mittens and close monitoring. 9. manager engine is assisting with placement. guarded due to multiple medical history, dementi a, nonambulatory state, and dysphagia. Daughter is aware. The family still wants everything done, b ut she is DNR status. Dictated By: DYLON HULL/MADAN Conf#: [id number] DID#: [id number]
[2019-03-23] MEDS: (Nursing Note) XX SCH ×2 (07:54→20:32)
[2019-03-23] MEDS: OLANZAPINE 2.5 MG TAB GTB SCH (08:48)
[2019-03-23] MEDS: FERROUS SULFATE 60 MG/ML 5ML CUP GTB SCH ×2 (08:48→20:10)
[2019-03-23] MEDS: FOLIC ACID 1 MG TAB GTB SCH (08:49)
[2019-03-23] MEDS: MUPIROCIN 2% 22 GM OINT TOP SCH ×2 (08:49→20:08)
[2019-03-23] MEDS: METOPROLOL 50 MG TAB GTB SCH (08:50)
[2019-03-23] MEDS: ASCORBIC ACID 500 MG TAB GTB SCH (08:50)
[2019-03-23] MEDS: LINAGLIPTIN 5 MG TABLET GTB SCH (08:50)
[2019-03-23] MEDS: AMLODIPINE 5 MG TAB GTB SCH (08:51)
[2019-03-23] MEDS: DOCUSATE SODIUM 10 MG/ML (10ML CUP) GTB SCH (08:51)
--- NOTE | 2019-03-23 11:50 | CONS ---
Assessment/Plan Assessment/Plan Assessment/Plan (Daily) 1. Fevers, likely secondary to urinary tract infection, now bld cx positive gram + Enterococcus resolved 2. End-stage renal disease on hemodialysis. 3. Urinary tract infection. 4. Hypertension. 5. Dementia. 6. Diabetes mellitus type II. 7. Diastolic heart failure. 8. Moderate protein energy malnutrition with cachexia. 9. Osteoarthritis. 10. GT status 11. Anemia of chronic disease 12. REsp failure, On BIPAP Assessment/Plan (Daily) c/w HD, MWFR, hd today, pt back in restraints -c/w epoetin 3 times a week -placement issue -Perm cath is functional no bleeding Consultation Date/Type/Reason Admit Date/Time Feb 19, 2019 at 01:01 Initial Consult Date Requesting Provider: JOSE RAUL ANDREWS MD Date/Time of Note DATE: 03/23/19 TIME: 11:49 24 HR Interval Summary Free Text/Dictation No acute events. hd scheduled today Exam/Review of Systems Exam Vitals Vital Signs Date Temp Pulse Resp B/P (MAP) Pulse Ox O2 O2 Flow FiO2 Time Delivery Rate 03/23/19 97.9 78 18 129/63 100 10:00 (85) 03/23/19 21 08:55 03/22/19 Room Air 18:13 03/20/19 2.0 08:07 Intake and Output 03/22/19 03/22/19 03/23/19 1515:00 23:00 07:00 IntakeIntake Total 610 ml 680 ml BalanceBalance 610 ml 680 ml Exam Awake alert permcath dec breath sounds bases Results Result Diagram: 03/23/19 0529 03/22/19 0547 Results 24hrs Laboratory Tests Test 03/22/19 21:39 03/23/19 05:29 03/23/19 07:32 Bedside Glucose 117 164 Hemoglobin 8.8 L Medications Medication Current Medications Aspirin (Aspirin) 81 mg DAILY GTB Last administered on 02/26/19at 10:20; Admin Dose 81 MG; Start 02/19/19 at 09:00; Status Hold Atorvastatin Calcium (Lipitor) 40 mg QHS GTB Last administered on 03/22/19at 21:41; Admin Dose 40 MG; Start 02/19/19 at 21:00 Mupirocin (Bactroban) 1 applic BID TOP Last administered on 03/23/19at 08:49; Admin Dose 1 APPLIC; Start 02/22/19 at 14:00 Insulin Glargine (Lantus) 4 units DAILY@2000 SC Last administered on 03/22/19at 21:50; Admin Dose 4 UNITS; Start 02/26/19 at 20:00 Epoetin Michael-epbx (Retacrit (Esrd)) 4,000 unit MoWeFr@1700 SC Last administered on 03/21/19 17:02; Admin Dose 4,000 UNIT; Start 02/28/19 at 17:00 Olanzapine (Zyprexa) 2.5 mg DAILY GTB Last administered on 03/23/19 08:48; Admin Dose 2.5 MG; Start 03/01/19 at 09:00 Lansoprazole (Prevacid) 30 mg BID@0600,1800 GTB Last administered on 03/23/19 05:06; Admin Dose 30 MG; Start 02/28/19 at 18:00 Ferrous Sulfate (Feosol Liquid Cup) 300 mg BID GTB Last administered on 03/23/19at 08:48; Admin Dose 300 MG; Start 03/08/19 at 09:00 Albuterol/ Ipratropium (Duoneb) 3 ml Q4H RESP THERAPY HHN Last administered on 03/23/19 08:44; Admin Dose 3 ML; Start 03/12/19 at 10:00 Albuterol/ Ipratropium (Duoneb) 3 ml Q2H RESP THERAPY PRN HHN SHORTNESS OF BREATH; Start 03/12/19 at 10:00 Miscellaneous Information 1 ea NOTE XX ; Start 03/13/19 at 16:30 Glucose (Glutose) 15 gm Q15M PRN PO DECREASED GLUCOSE; Start 03/13/19 at 16:30 Glucose (Glutose) 22.5 gm Q15M PRN PO DECREASED GLUCOSE; Start 03/13/19 at 16:30 Dextrose (D50w Syringe) 25 ml Q15M PRN IV DECREASED GLUCOSE; Start 03/13/19 at 16:30 Dextrose (D50w Syringe) 50 ml Q15M PRN IV DECREASED GLUCOSE; Start 03/13/19 at 16:30 Glucagon (Glucagen) 1 mg Q15M PRN IM DECREASED GLUCOSE; Start 03/13/19 at 16:30 Glucose (Glutose) 15 gm Q15M PRN BUCCAL DECREASED GLUCOSE; Start 03/13/19 at 16:30 Miconazole (Monistat-7) 1 supp HS VAG Last administered on 03/20/19at 20:58; Admin Dose 1 SUPP; Start 03/19/19 at 21:00; Stop 03/25/19 at 21:01 Miscellaneous Information (*Order Clarification Bulletin) MEDICATION REQUIRES CLARIFICATI... Q8H XX ; Start 03/21/19 at 09:30 Miscellaneous Information 1 ea BID XX ; Start 03/21/19 at 22:00 JOSE RAUL ANDREWS MD March 23, 2019 11:50
--- NOTE | 2019-03-23 14:49 | CONS ---
Assessment/Plan Assessment/Plan Hospital Course (Demo Recall) No events, looks comfortable no fevers overnight Indwelling: Left subclavian permacath, PEG Microbiology: Urine culture on admission grew Dominique glabrata, blood culture grew Enterococcus Chest x-ray on admission revealed no definite evidence of pneumonia or CHF Physical examination: This is a chronically ill-appearing wasted elderly woman who is in no distress. Head atraumatic normocephalic. Neck is supple. Chest rise symmetrical patient is mildly tachypneic with expiratory wheezes. Heart: S1-S2, tachycardic. Abdomen soft bowel sounds present. Extremities without cyanosis edema. Assessment: 1. Acute hypoxemia ==> combination of aspiration and fluid overload 2. Status post recurrent UTI and bacteremia 4. End-stage renal disease, hemodialysis dependent 5. Anemia 6. 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 Plan: Remains stable, continue present care, aspiration precautions Consultation Date/Type/Reason Admit Date/Time Feb 19, 2019 at 01:01 Initial Consult Date Type of Consult id Requesting Provider: JOSE RAUL ANDREWS MD Date/Time of Note DATE: 03/23/19 TIME: 14:49 Exam/Review of Systems Exam Vitals Vital Signs Date Temp Pulse Resp B/P (MAP) Pulse Ox O2 O2 Flow FiO2 Time Delivery Rate 03/23/19 81 13:01 03/23/19 20 97 21 12:12 03/23/19 97.8 143/65 11:50 (91) 03/22/19 Room Air 18:13 03/20/19 2.0 08:07 Intake and Output 03/22/19 03/22/19 03/23/19 1515:00 23:00 07:00 IntakeIntake Total 610 ml 680 ml BalanceBalance 610 ml 680 ml Results Result Diagram: 03/23/19 0529 03/22/19 0547 Results 24hrs Laboratory Tests Test 03/22/19 21:39 03/23/19 05:29 03/23/19 07:32 03/23/19 12:07 Bedside Glucose 117 164 103 Hemoglobin 8.8 L Medications Medication Current Medications Aspirin (Aspirin) 81 mg DAILY GTB Last administered on 02/26/19at 10:20; Admin Dose 81 MG; Start 02/19/19 at 09:00; Status Hold Atorvastatin Calcium (Lipitor) 40 mg QHS GTB Last administered on 03/22/19 21:41; Admin Dose 40 MG; Start 02/19/19 at 21:00 Mupirocin (Bactroban) 1 applic BID TOP Last administered on 03/23/19 08:49; Admin Dose 1 APPLIC; Start 02/22/19 at 14:00 Insulin Glargine (Lantus) 4 units DAILY@2000 SC Last administered on 03/22/19 21:50; Admin Dose 4 UNITS; Start 02/26/19 at 20:00 Epoetin Michael-epbx (Retacrit (Esrd)) 4,000 unit MoWeFr@1700 SC Last administered on 03/21/19 17:02; Admin Dose 4,000 UNIT; Start 02/28/19 at 17:00 Olanzapine (Zyprexa) 2.5 mg DAILY GTB Last administered on 03/23/19 08:48; Admin Dose 2.5 MG; Start 03/01/19 at 09:00 Lansoprazole (Prevacid) 30 mg BID@0600,1800 GTB Last administered on 03/23/19 05:06; Admin Dose 30 MG; Start 02/28/19 at 18:00 Ferrous Sulfate (Feosol Liquid Cup) 300 mg BID GTB Last administered on 03/23/19 08:48; Admin Dose 300 MG; Start 03/08/19 at 09:00 Albuterol/ Ipratropium (Duoneb) 3 ml Q4H RESP THERAPY HHN Last administered on 03/23/19at 12:10; Admin Dose 3 ML; Start 03/12/19 at 10:00 Albuterol/ Ipratropium (Duoneb) 3 ml Q2H RESP THERAPY PRN HHN SHORTNESS OF BREATH; Start 03/12/19 at 10:00 Miscellaneous Information 1 ea NOTE XX ; Start 03/13/19 at 16:30 Glucose (Glutose) 15 gm Q15M PRN PO DECREASED GLUCOSE; Start 03/13/19 at 16:30 Glucose (Glutose) 22.5 gm Q15M PRN PO DECREASED GLUCOSE; Start 03/13/19 at 16:30 Dextrose (D50w Syringe) 25 ml Q15M PRN IV DECREASED GLUCOSE; Start 03/13/19 at 16:30 Dextrose (D50w Syringe) 50 ml Q15M PRN IV DECREASED GLUCOSE; Start 03/13/19 at 16:30 Glucagon (Glucagen) 1 mg Q15M PRN IM DECREASED GLUCOSE; Start 03/13/19 at 16:30 Glucose (Glutose) 15 gm Q15M PRN BUCCAL DECREASED GLUCOSE; Start 03/13/19 at 16:30 Miconazole (Monistat-7) 1 supp HS VAG Last administered on 03/20/19at 20:58; Admin Dose 1 SUPP; Start 03/19/19 at 21:00; Stop 03/25/19 at 21:01 Miscellaneous Information (*Order Clarification Bulletin) MEDICATION REQUIRES CLARIFICATI... Q8H XX ; Start 03/21/19 at 09:30 Miscellaneous Information 1 ea BID XX ; Start 03/21/19 at 22:00 PHYLICIA HOLCOMB NP March 23, 2019 14:49
--- NOTE | 2019-03-23 15:27 | PN ---
DATE: 03/23/2019 SUBJECTIVE: The patient is seen, appears to be lying in bed comfortably, alert. Plan is for dialysi s today. Case discussed with nursing staff. PHYSICAL EXAMINATION: VITAL SIGNS: Temperature 97.8, pulse 80, respirations 20, blood pressure 143/65, saturation 97% on r oom air. GENERAL: No acute distress. HEENT: Normocephalic, atraumatic. Pale. CARDIOVASCULAR: S1, S2, regular rate. LUNGS: Clear. ABDOMEN: Soft. G-tube in place. EXTREMITIES: No clubbing, cyanosis, or edema. LABORATORY DATA: Hemoglobin today is 8.8, otherwise no chemistry today. Last glucose levels of 103, 164 and 117. The patient's blood culture dated 03/12/2019 negative. MEDICATIONS: The patient's current medications were all reviewed include;. 1. Miconazole at bedtime vaginally. 2. Hypoglycemia protocol. 3. DuoNeb every 4 hours. 4. Ferrous sulphate 200 b.i.d. 5. Zyprexa 2.5 mg daily. 6. Prevacid 20 mg b.i.d. 7. Epogen Thursday, Thursday, Thursday with dialysis. 8. Lantus 40 units daily. 9. Bactroban b.i.d. 10. Lipitor 40 mg at bedtime. Off blood thinners due to recurrent need for transfusion. IMAGING STUDIES: Chest x-ray showed decreased left perihilar and left upper lobe infiltrate. No oth er significant change. ASSESSMENT AND PLAN: This is an 83-year-old Citizen Of [place] female with a history of end-stage renal diseas e, vascular dementia, hypertension, diabetes mellitus, anemia who presented with bacteremia, line sep sis, urinary tract infection, and aspiration pneumonia. 1. Respiratory. Stable. Finished a course of Merrem today. Chest x-ray shows improvement. The pa karina's white count is normal and saturating well. Continue aspiration precaution. Head elevation w hen she is being fed. 2. Cardiovascular. Off blood thinners due to multiple need for transfusion. Blood pressure is othe rwise stable. 3. Anemia. Continue Epogen with dialysis and iron supplements. Transfuse p.r.n. 4. End-stage renal disease, dialysis every Thursday, Thursday and Thursday. Plan is for dialysis today . 5. Infectious disease, finished a course of Merrem for pneumonia also on Monistat vaginally per ID. 6. Diabetes mellitus, controlled with Levemir. Glucose level in the low 100s. 7. Psychiatric disorder. Continue Zyprexa. 8. Follow precautions hand mittens p.r.n. and close monitoring. analytical manager to assist with placeme nt. 9. The patient is DNR. We will follow. Dictated By: DYLON HULL/NTS Conf#: [id number] DID#: [id number] CC: JOSE RAUL ANDREWS; DYLON WALLS MD;*EndCC*
[2019-03-23] MEDS: EPOETIN ALFA-EPBX (ESRD) 4,000 UNIT/ML VIAL SC SCH (17:09)
--- NOTE | 2019-03-23 17:39 | CONS ---
Assessment/Plan Assessment/Plan Assessment/Plan (Daily) Assessment/Plan Hospital Course (Demo Recall) 83 yo female presented with severe anemia 1. Severe anemia,acute on chronic -likely due to chronic disease -retic 2.6, ferritin 4490, neg FOB (multiple FOB) 2. End-stage renal disease on dialysis. 3. Urinary tract infection. -positive yeast 4. Dysphagia, status post percutaneous endoscopic gastrostomy tube placement. 5. Hypertension. 6. Behavioral disorder. PLAN: Consider heme onc consult for anemia Monitor HH and for GI bleeding Aspiration precautions Monitor residuals q 6 hours Consultation Date/Type/Reason Admit Date/Time Feb 19, 2019 at 01:01 Initial Consult Date 02/23/19 Requesting Provider: JOSE RAUL ANDREWS MD Date/Time of Note DATE: 03/23/19 TIME: 17:39 24 HR Interval Summary Constitutional: no complaints, disoriented Exam/Review of Systems Exam Vitals Vital Signs Date Temp Pulse Resp B/P (MAP) Pulse Ox O2 O2 Flow FiO2 Time Delivery Rate 03/23/19 76 20 97 16:42 03/23/19 98.0 142/66 14:00 (91) 03/23/19 21 12:12 03/22/19 Room Air 18:13 03/20/19 2.0 08:07 Intake and Output 03/22/19 03/22/19 03/23/19 1515:00 23:00 07:00 IntakeIntake Total 610 ml 680 ml BalanceBalance 610 ml 680 ml Constitutional: alert, oriented, well developed Psych: no complaints, nl mood/affect Head: normocephalic, atraumatic Eyes: nl conjunctiva, EOMI, nl lids, nl sclera, PERRL ENMT: nl external ears & nose, nl lips & teeth, nl nasal mucosa & septum Neck: supple, non-tender Respiratory: clear to auscultation, normal air movement Cardiovascular: regular rate and rhythm, nl pulses Gastrointestinal: soft, nl liver, spleen, non-tender Musculoskeletal: nl extremities to inspection, nl gait and stance Extremities: normal pulses 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: BUSINESS PERFORMANCE MANAGER II-XII intact, nl mental status, nl speech, nl strength Skin: nl turgor; No rash or lesions Lymph: nl lymph nodes Results Result Diagram: 03/23/19 0529 03/22/19 0547 Results 24hrs Laboratory Tests Test 03/22/19 21:39 03/23/19 05:29 03/23/19 07:32 03/23/19 12:07 Bedside Glucose 117 164 103 Hemoglobin 8.8 L Test 03/23/19 17:07 Bedside Glucose 153 Medications Medication Current Medications Aspirin (Aspirin) 81 mg DAILY GTB Last administered on 02/26/19 10:20; Admin Dose 81 MG; Start 02/19/19 at 09:00; Status Hold Atorvastatin Calcium (Lipitor) 40 mg QHS GTB Last administered on 03/22/19 21:41; Admin Dose 40 MG; Start 02/19/19 at 21:00 Mupirocin (Bactroban) 1 applic BID TOP Last administered on 03/23/19 08:49; Admin Dose 1 APPLIC; Start 02/22/19 at 14:00 Insulin Glargine (Lantus) 4 units DAILY@2000 SC Last administered on 03/22/19 21:50; Admin Dose 4 UNITS; Start 02/26/19 at 20:00 Epoetin Michael-epbx (Retacrit (Esrd)) 4,000 unit MoWeFr@1700 SC Last administered on 03/23/19 17:09; Admin Dose 4,000 UNIT; Start 02/28/19 at 17:00 Olanzapine (Zyprexa) 2.5 mg DAILY GTB Last administered on 03/23/19 08:48; Admin Dose 2.5 MG; Start 03/01/19 at 09:00 Lansoprazole (Prevacid) 30 mg BID@0600,1800 GTB Last administered on 03/23/19 17:09; Admin Dose 30 MG; Start 02/28/19 at 18:00 Ferrous Sulfate (Feosol Liquid Cup) 300 mg BID GTB Last administered on 03/23/19 08:48; Admin Dose 300 MG; Start 03/08/19 at 09:00 Albuterol/ Ipratropium (Duoneb) 3 ml Q4H RESP THERAPY HHN Last administered on 03/23/19 16:40; Admin Dose 3 ML; Start 03/12/19 at 10:00 Albuterol/ Ipratropium (Duoneb) 3 ml Q2H RESP THERAPY PRN HHN SHORTNESS OF BREATH; Start 03/12/19 at 10:00 Miscellaneous Information 1 ea NOTE XX ; Start 03/13/19 at 16:30 Glucose (Glutose) 15 gm Q15M PRN PO DECREASED GLUCOSE; Start 03/13/19 at 16:30 Glucose (Glutose) 22.5 gm Q15M PRN PO DECREASED GLUCOSE; Start 03/13/19 at 16:30 Dextrose (D50w Syringe) 25 ml Q15M PRN IV DECREASED GLUCOSE; Start 03/13/19 at 16:30 Dextrose (D50w Syringe) 50 ml Q15M PRN IV DECREASED GLUCOSE; Start 03/13/19 at 16:30 Glucagon (Glucagen) 1 mg Q15M PRN IM DECREASED GLUCOSE; Start 03/13/19 at 16:30 Glucose (Glutose) 15 gm Q15M PRN BUCCAL DECREASED GLUCOSE; Start 03/13/19 at 16:30 Miconazole (Monistat-7) 1 supp HS VAG Last administered on 03/20/19at 20:58; Admin Dose 1 SUPP; Start 03/19/19 at 21:00; Stop 03/25/19 at 21:01 Miscellaneous Information (*Order Clarification Bulletin) MEDICATION REQUIRES CLARIFICATI... Q8H XX ; Start 03/21/19 at 09:30 Miscellaneous Information 1 ea BID XX ; Start 03/21/19 at 22:00 CHRISS WELCH MD March 23, 2019 17:39
[2019-03-23] MEDS: ATORVASTATIN 40 MG TAB GTB SCH (20:09)
[2019-03-23] MEDS: ACETAMINOPHEN 650MG/20.3ML CUP GTB PRN (20:09)
[2019-03-23] MEDS: LORAZEPAM 0.5 MG TAB GTB PRN (20:10)
[2019-03-23] MEDS: MICONAZOLE 100 MG VAG SUPP VAG SCH (20:32)
[2019-03-23] MEDS: INSULIN GLARGINE [LANTus] (100 UNITS/ML) SYG SC SCH (20:32)
[2019-03-24] VITALS (26 sets, daily range): BP systolic 89–157; BP diastolic 41–73; PULSE 68–100; RESP 16–21
[2019-03-24] MEDS: ALBUTEROL/IPRATROPIUM (NEB) 3 ML AMP HHN SCH ×6 (00:43→20:36)
[2019-03-24] MEDS: LANSOPRAZOLE 30 MG CAP GTB SCH ×2 (05:31→18:02)
[2019-03-24] MEDS: LORAZEPAM 0.5 MG TAB GTB PRN ×2 (09:18→19:53)
[2019-03-24] MEDS: OLANZAPINE 2.5 MG TAB GTB SCH (09:18)
[2019-03-24] MEDS: FERROUS SULFATE 60 MG/ML 5ML CUP GTB SCH ×2 (09:18→20:00)
[2019-03-24] MEDS ORDERED: LORAZEPAM 2 MG INJ IV ONE (11:00)
--- NOTE | 2019-03-24 13:28 | CONS ---
Assessment/Plan Assessment/Plan Assessment/Plan (Daily) . Fevers, likely secondary to urinary tract infection, now bld cx positive gram + Enterococcus resolved 2. End-stage renal disease on hemodialysis. 3. Urinary tract infection. 4. Hypertension. 5. Dementia. 6. Diabetes mellitus type II. 7. Diastolic heart failure. 8. Moderate protein energy malnutrition with cachexia. 9. Osteoarthritis. 10. GT status 11. Anemia of chronic disease 12. REsp failure, On BIPAP Assessment/Plan (Daily) c/w HD, MWFR, hd supposed to be yesterday however got pushed back to today due to scheduling issues Dev was called in, -We will do HD today schedule will be moved, now next HD will be on Thursday -c/w epoetin 3 times a week -placement issue Consultation Date/Type/Reason Admit Date/Time Feb 19, 2019 at 01:01 Initial Consult Date Requesting Provider: JOSE RAUL ANDREWS MD Date/Time of Note DATE: 03/24/19 TIME: 13:28 24 HR Interval Summary Free Text/Dictation HD could not be done yesterday due to scheduling issues Exam/Review of Systems Exam Vitals Vital Signs Date Temp Pulse Resp B/P (MAP) Pulse Ox O2 O2 Flow FiO2 Time Delivery Rate 03/24/19 95 13:15 03/24/19 18 100 21 12:49 03/24/19 116/47 Room Air 10:30 (70) 03/24/19 98.1 07:55 03/20/19 2.0 08:07 Intake and Output 03/23/19 03/23/19 03/24/19 1515:00 23:00 07:00 IntakeIntake Total 560 ml 560 ml BalanceBalance 560 ml 560 ml Exam Awake alert permcath dec breath sounds bases Results Results Result Diagram: 03/23/19 0529 03/22/19 0547 Results 24hrs Laboratory Tests Test 03/23/19 17:07 03/23/19 20:08 Bedside Glucose 153 162 Medications Medication Current Medications Aspirin (Aspirin) 81 mg DAILY GTB Last administered on 02/26/19at 10:20; Admin Dose 81 MG; Start 02/19/19 at 09:00; Status Hold Mupirocin (Bactroban) 1 applic BID TOP Last administered on 03/23/19at 20:08; Admin Dose 1 APPLIC; Start 02/22/19 at 14:00 Insulin Glargine (Lantus) 4 units DAILY@2000 SC Last administered on 03/23/19at 20:32; Admin Dose 4 UNITS; Start 02/26/19 at 20:00 Epoetin Michael-epbx (Retacrit (Esrd)) 4,000 unit MoWeFr@1700 SC Last administered on 03/23/19at 17:09; Admin Dose 4,000 UNIT; Start 02/28/19 at 17:00 Olanzapine (Zyprexa) 2.5 mg DAILY GTB Last administered on 03/24/19at 09:18; Admin Dose 2.5 MG; Start 03/01/19 at 09:00 Lansoprazole (Prevacid) 30 mg BID@0600,1800 GTB Last administered on 03/24/19at 05:31; Admin Dose 30 MG; Start 02/28/19 at 18:00 Ferrous Sulfate (Feosol Liquid Cup) 300 mg BID GTB Last administered on 03/24/19at 09:18; Admin Dose 300 MG; Start 03/08/19 at 09:00 Albuterol/ Ipratropium (Duoneb) 3 ml Q4H RESP THERAPY HHN Last administered on 03/24/19at 12:49; Admin Dose 3 ML; Start 03/12/19 at 10:00 Albuterol/ Ipratropium (Duoneb) 3 ml Q2H RESP THERAPY PRN HHN SHORTNESS OF BREATH; Start 03/12/19 at 10:00 Miscellaneous Information 1 ea NOTE XX ; Start 03/13/19 at 16:30 Glucose (Glutose) 15 gm Q15M PRN PO DECREASED GLUCOSE; Start 03/13/19 at 16:30 Glucose (Glutose) 22.5 gm Q15M PRN PO DECREASED GLUCOSE; Start 03/13/19 at 16:30 Dextrose (D50w Syringe) 25 ml Q15M PRN IV DECREASED GLUCOSE; Start 03/13/19 at 16:30 Dextrose (D50w Syringe) 50 ml Q15M PRN IV DECREASED GLUCOSE; Start 03/13/19 at 16:30 Glucagon (Glucagen) 1 mg Q15M PRN IM DECREASED GLUCOSE; Start 03/13/19 at 16:30 Glucose (Glutose) 15 gm Q15M PRN BUCCAL DECREASED GLUCOSE; Start 03/13/19 at 16:30 Miconazole (Monistat-7) 1 supp HS VAG Last administered on 03/20/19at 20:58; Ad min Dose 1 SUPP; Start 03/19/19 at 21:00; Stop 03/25/19 at 21:01 Miscellaneous Information (*Order Clarification Bulletin) MEDICATION REQUIRES CLARIFICATI... Q8H XX ; Start 03/21/19 at 09:30 Miscellaneous Information 1 ea BID XX ; Start 03/21/19 at 22:00 Lorazepam (Ativan) 0.5 mg QID PRN GTB ANXIETY Last administered on 03/24/19at 09:18; Admin Dose 0.5 MG; Start 03/23/19 at 20:00 Acetaminophen (Tylenol Liquid) 650 mg Q4H PRN GTB MILD PAIN(1-3)OR ELEVATED TEMP Last administered on 03/23/19at 20:09; Admin Dose 650 MG; Start 03/23/19 at 20:00 JOSE RAUL ANDREWS MD March 24, 2019 13:28
--- NOTE | 2019-03-24 13:42 | CONS ---
Assessment/Plan Assessment/Plan Hospital Course (Demo Recall) No events, in hemodialysis, looks comfortable Indwelling: Left subclavian permacath, PEG Microbiology: Urine culture on admission grew Dominique glabrata, blood culture grew Enterococcus Chest x-ray on admission revealed no definite evidence of pneumonia or CHF Physical examination: This is a chronically ill-appearing wasted elderly woman who is in no distress. Head atraumatic normocephalic. Neck is supple. Chest rise symmetrical patient is mildly tachypneic with expiratory wheezes. Heart: S1-S2, tachycardic. Abdomen soft bowel sounds present. Extremities without cyanosis edema. Assessment: 1. Acute hypoxemia ==> combination of aspiration and fluid overload 2. Status post recurrent UTI and bacteremia 4. End-stage renal disease, hemodialysis dependent 5. Anemia 6. 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 Plan: Remains stable, continue present care, aspiration precautions Consultation Date/Type/Reason Admit Date/Time Feb 19, 2019 at 01:01 Initial Consult Date Type of Consult id Requesting Provider: JOSE RAUL ANDREWS MD Date/Time of Note DATE: 03/24/19 TIME: 13:42 Exam/Review of Systems Exam Vitals Vital Signs Date Temp Pulse Resp B/P (MAP) Pulse Ox O2 O2 Flow FiO2 Time Delivery Rate 03/24/19 95 13:15 03/24/19 18 100 21 12:49 03/24/19 116/47 Room Air 10:30 (70) 03/24/19 98.1 07:55 03/20/19 2.0 08:07 Intake and Output 03/23/19 03/23/19 03/24/19 1515:00 23:00 07:00 IntakeIntake Total 560 ml 560 ml BalanceBalance 560 ml 560 ml Results Result Diagram: 03/23/19 0529 03/22/19 0547 Results 24hrs Laboratory Tests Test 03/23/19 17:07 03/23/19 20:08 Bedside Glucose 153 162 Medications Medication Current Medications Aspirin (Aspirin) 81 mg DAILY GTB Last administered on 02/26/19at 10:20; Admin Dose 81 MG; Start 02/19/19 at 09:00; Status Hold Mupirocin (Bactroban) 1 applic BID TOP Last administered on 03/23/19at 20:08; Admin Dose 1 APPLIC; Start 02/22/19 at 14:00 Insulin Glargine (Lantus) 4 units DAILY@2000 SC Last administered on 03/23/19at 20:32; Admin Dose 4 UNITS; Start 02/26/19 at 20:00 Epoetin Michael-epbx (Retacrit (Esrd)) 4,000 unit MoWeFr@1700 SC Last administered on 03/23/19at 17:09; Admin Dose 4,000 UNIT; Start 02/28/19 at 17:00 Olanzapine (Zyprexa) 2.5 mg DAILY GTB Last administered on 03/24/19at 09:18; Admin Dose 2.5 MG; Start 03/01/19 at 09:00 Lansoprazole (Prevacid) 30 mg BID@0600,1800 GTB Last administered on 03/24/19at 05:31; Admin Dose 30 MG; Start 02/28/19 at 18:00 Ferrous Sulfate (Feosol Liquid Cup) 300 mg BID GTB Last administered on 03/24/19 at 09:18; Admin Dose 300 MG; Start 03/08/19 at 09:00 Albuterol/ Ipratropium (Duoneb) 3 ml Q4H RESP THERAPY HHN Last administered on 03/24/19at 12:49; Admin Dose 3 ML; Start 03/12/19 at 10:00 Albuterol/ Ipratropium (Duoneb) 3 ml Q2H RESP THERAPY PRN HHN SHORTNESS OF BREATH; Start 03/12/19 at 10:00 Miscellaneous Information 1 ea NOTE XX ; Start 03/13/19 at 16:30 Glucose (Glutose) 15 gm Q15M PRN PO DECREASED GLUCOSE; Start 03/13/19 at 16:30 Glucose (Glutose) 22.5 gm Q15M PRN PO DECREASED GLUCOSE; Start 03/13/19 at 16:30 Dextrose (D50w Syringe) 25 ml Q15M PRN IV DECREASED GLUCOSE; Start 03/13/19 at 16:30 Dextrose (D50w Syringe) 50 ml Q15M PRN IV DECREASED GLUCOSE; Start 03/13/19 at 16:30 Glucagon (Glucagen) 1 mg Q15M PRN IM DECREASED GLUCOSE; Start 03/13/19 at 16:30 Glucose (Glutose) 15 gm Q15M PRN BUCCAL DECREASED GLUCOSE; Start 03/13/19 at 16:30 Miconazole (Monistat-7) 1 supp HS VAG Last administered on 03/20/19at 20:58; Admin Dose 1 SUPP; Start 03/19/19 at 21:00; Stop 03/25/19 at 21:01 Miscellaneous Information (*Order Clarification Bulletin) MEDICATION REQUIRES CLARIFICATI... Q8H XX ; Start 03/21/19 at 09:30 Miscellaneous Information 1 ea BID XX ; Start 03/21/19 at 22:00 Lorazepam (Ativan) 0.5 mg QID PRN GTB ANXIETY Last administered on 03/24/19at 09:18; Admin Dose 0.5 MG; Start 03/23/19 at 20:00 Acetaminophen (Tylenol Liquid) 650 mg Q4H PRN GTB MILD PAIN(1-3)OR ELEVATED TEM P Last administered on 03/23/19at 20:09; Admin Dose 650 MG; Start 03/23/19 at 20:00 PHYLICIA HOLCOMB NP March 24, 2019 13:42
[2019-03-24] MEDS: MUPIROCIN 2% 22 GM OINT TOP SCH ×2 (15:28→20:00)
[2019-03-24] MEDS: (Nursing Note) XX SCH ×2 (17:05→21:00)
--- NOTE | 2019-03-24 19:21 | PN ---
DATE: 03/24/2019 SUBJECTIVE: The patient seen, appears alert. She was placed in restraints due to anxiety while bein g on dialysis after given also a dose of Haldol. PHYSICAL EXAMINATION: VITAL SIGNS: Temperature 98.1, pulse 89, respirations 18, blood pressure is 115/50, saturation 100% on room air. GENERAL: The patient is in no acute distress. The patient is frail, pale. HEENT: Temporal wasting. Decreased dentition. CARDIOVASCULAR: S1, S2, regular rate. LUNGS: Clear. ABDOMEN: Soft, nontender. EXTREMITIES: No clubbing, cyanosis, or edema. LABORATORY DATA: Labs from 03/22 were reviewed. Last hemoglobin was 8.8 yesterday. MEDICATIONS: Include: 1. Ativan. 2. Tylenol. 3. Monistat. 4. Hypoglycemic protocol. 5. Ferrous sulfate. 6. Olanzapine. 7. Prevacid. 8. Epogen. 9. Lantus 4 units at night. 10. Bactroban ointment as directed. ASSESSMENT AND PLAN: This is an 83-year-old [place]ese female with history of end-stage renal disease, vascular dementia, hypertension, diabetes mellitus, anemia, presented with bacteremia, line sepsis, urinary tract infection, and aspiration pneumonia. 1. Respiratory. Stable. Continue aspiration precaution. Head elevation while being fed. 2. Cardiovascular. Off blood thinners due to need for transfusion frequently. 3. Hypertension, controlled with above meds. 4. Anemia. Continue Epogen and iron supplements. Transfuse p.r.n. 5. End-stage renal disease. Next dialysis is tomorrow. 6. Infectious disease. Finished a course of antibiotic for aspiration pneumonia, afebrile with norm al white count. Chest x-ray did show improvement. Diabetes mellitus on Levemir. 7. Psychiatric disorder, on Zyprexa. 8. The patient is DNR. 9. Placement at the nursing home facility when bed is available. natural sciences manager is assisting. We will follow. Dictated By: DYLON HULL/MADAN Conf#: [id number] DID#: [id number] CC: DYLON WALLS MD;*EndCC*
[2019-03-24] MEDS: ACETAMINOPHEN 650MG/20.3ML CUP GTB PRN (19:53)
[2019-03-24] MEDS: INSULIN GLARGINE [LANTus] (100 UNITS/ML) SYG SC SCH (20:47)
[2019-03-24] MEDS: MICONAZOLE 100 MG VAG SUPP VAG SCH (21:00)
[2019-03-25] VITALS (16 sets, daily range): BP systolic 115–169; BP diastolic 55–70; PULSE 80–100; RESP 17–20
[2019-03-25] MEDS: ALBUTEROL/IPRATROPIUM (NEB) 3 ML AMP HHN SCH ×6 (00:33→19:55)
[2019-03-25] MEDS: ACETAMINOPHEN 650MG/20.3ML CUP GTB PRN ×2 (05:59→20:05)
[2019-03-25] MEDS: LANSOPRAZOLE 30 MG CAP GTB SCH ×2 (05:59→17:33)
[2019-03-25] MEDS: FERROUS SULFATE 60 MG/ML 5ML CUP GTB SCH ×2 (10:01→20:05)
[2019-03-25] MEDS: OLANZAPINE 2.5 MG TAB GTB SCH (10:01)
[2019-03-25] MEDS: MUPIROCIN 2% 22 GM OINT TOP SCH ×2 (10:02→20:06)
[2019-03-25] MEDS: (Nursing Note) XX SCH ×2 (11:11→21:00)
--- NOTE | 2019-03-25 13:18 | CONS ---
Assessment/Plan Assessment/Plan Hospital Course (Demo Recall) No events, no fevers, looks comfortable Indwelling: Left subclavian permacath, PEG Microbiology: Urine culture on admission grew Dominique glabrata, blood culture grew Enterococcus Chest x-ray on admission revealed no definite evidence of pneumonia or CHF Physical examination: This is a chronically ill-appearing wasted elderly woman who is in no distress. Head atraumatic normocephalic. Neck is supple. Chest rise symmetrical patient is mildly tachypneic with expiratory wheezes. Heart: S1-S2, tachycardic. Abdomen soft bowel sounds present. Extremities without cyanosis edema. Assessment: 1. Acute hypoxemia ==> combination of aspiration and fluid overload 2. Status post recurrent UTI and bacteremia 4. End-stage renal disease, hemodialysis dependent 5. Anemia 6. 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 Plan: Remains stable, off abx, continue present care, aspiration precautions Consultation Date/Type/Reason Admit Date/Time Feb 19, 2019 at 01:01 Initial Consult Date Type of Consult id Requesting Provider: JOSE RAUL ANDREWS MD Date/Time of Note DATE: 03/25/19 TIME: 13:18 Exam/Review of Systems Exam Vitals Vital Signs Date Temp Pulse Resp B/P (MAP) Pulse Ox O2 O2 Flow FiO2 Time Delivery Rate 03/25/19 97.9 84 18 124/59 98 Room Air 12:03 (80) 03/25/19 21 09:08 Intake and Output 03/24/19 03/24/19 03/25/19 1515:00 23:00 07:00 IntakeIntake Total 500 ml 660 ml OutputOutput Total 2300 ml BalanceBalance -2300 ml 500 ml 660 ml Results Result Diagram: 03/23/19 0529 03/22/19 0547 Results 24hrs Laboratory Tests Test 03/24/19 20:23 Bedside Glucose 149 Medications Medication Current Medications Aspirin (Aspirin) 81 mg DAILY GTB Last administered on 02/26/19at 10:20; Admin Dose 81 MG; Start 02/19/19 at 09:00; Status Hold Mupirocin (Bactroban) 1 applic BID TOP Last administered on 03/25/19at 10:02; Admin Dose 1 APPLIC; Start 02/22/19 at 14:00 Insulin Glargine (Lantus) 4 units DAILY@2000 SC Last administered on 03/24/19at 20:47; Admin Dose 4 UNITS; Start 02/26/19 at 20:00 Epoetin Michael-epbx (Retacrit (Esrd)) 4,000 unit MoWeFr@1700 SC Last administered on 03/23/19at 17:09; Admin Dose 4,000 UNIT; Start 02/28/19 at 17:00 Olanzapine (Zyprexa) 2.5 mg DAILY GTB Last administered on 03/25/19at 10:01; Admin Dose 2.5 MG; Start 03/01/19 at 09:00 Lansoprazole (Prevacid) 30 mg BID@0600,1800 GTB Last administered on 03/25/19at 05:59; Admin Dose 30 MG; Start 02/28/19 at 18:00 Ferrous Sulfate (Feosol Liquid Cup) 300 mg BID GTB Last administered on 03/25/19at 10:01; Admin Dose 300 MG; Start 03/08/19 at 09:00 Albuterol/ Ipratropium (Duoneb) 3 ml Q4H RESP THERAPY HHN Last administered on 03/25/19at 09:08; Admin Dose 3 ML; Start 03/12/19 at 10:00 Albuterol/ Ipratropium (Duoneb) 3 ml Q2H RESP THERAPY PRN HHN SHORTNESS OF BREATH; Start 03/12/19 at 10:00 Miscellaneous Information 1 ea NOTE XX ; Start 03/13/19 at 16:30 Glucose (Glutose) 15 gm Q15M PRN PO DECREASED GLUCOSE; Start 03/13/19 at 16:30 Glucose (Glutose) 22.5 gm Q15M PRN PO DECREASED GLUCOSE; Start 03/13/19 at 16:30 Dextrose (D50w Syringe) 25 ml Q15M PRN IV DECREASED GLUCOSE; Start 03/13/19 at 16:30 Dextrose (D50w Syringe) 50 ml Q15M PRN IV DECREASED GLUCOSE; Start 03/13/19 at 16:30 Glucagon (Glucagen) 1 mg Q15M PRN IM DECREASED GLUCOSE; Start 03/13/19 at 16:30 Glucose (Glutose) 15 gm Q15M PRN BUCCAL DECREASED GLUCOSE; Start 03/13/19 at 16:30 Miconazole (Monistat-7) 1 supp HS VAG Last administered on 03/20/19at 20:58; Admin Dose 1 SUPP; Start 03/19/19 at 21:00; Stop 03/25/19 at 21:01 Miscellaneous Information (*Order Clarification Bulletin) MEDICATION REQUIRES CLARIFICATI... Q8H XX ; Start 03/21/19 at 09:30 Miscellaneous Information 1 ea BID XX ; Start 03/21/19 at 22:00 Lorazepam (Ativan) 0.5 mg QID PRN GTB ANXIETY Last administered on 03/24/19at 19:53; Admin Dose 0.5 MG; Start 03/23/19 at 20:00 Acetaminophen (Tylenol Liquid) 650 mg Q4H PRN GTB MILD PAIN(1-3)OR ELEVATED TEMP Last administered on 03/25/19at 05:59; Admin Dose 650 MG; Start 03/23/19 at 20:00 PHYLICIA HOLCOMB NP March 25, 2019 13:18
--- NOTE | 2019-03-25 14:50 | CONS ---
Assessment/Plan Assessment/Plan Hospital Course (Demo Recall) 1. Fevers, likely secondary to urinary tract infection, now bld cx positive gram + Enterococcus 2. End-stage renal disease on hemodialysis. 3. Urinary tract infection. 4. Hypertension. 5. Dementia. 6. Diabetes mellitus type II. 7. Diastolic heart failure. 8. Moderate protein energy malnutrition with cachexia. 9. Osteoarthritis. 10. GT status 11. Anemia of chronic disease 12. REsp failure, On BIPAP Assessment/Plan (Daily) c/w HD c/w Epogen per deangelo. -renally dose drugs Consultation Date/Type/Reason Admit Date/Time Feb 19, 2019 at 01:01 Initial Consult Date 02/19/2019 Type of Consult nephrology Requesting Provider: JOSE RAUL ANDREWS MD Date/Time of Note DATE: 03/25/19 TIME: 14:48 Exam/Review of Systems Exam Vitals Vital Signs Date Temp Pulse Resp B/P (MAP) Pulse Ox O2 O2 Flow FiO2 Time Delivery Rate 03/25/19 89 150/67 14:34 (94) 03/25/19 18 21 13:34 03/25/19 97.9 98 Room Air 12:03 Intake and Output 03/24/19 03/24/19 03/25/19 1414:59 22:59 06:59 IntakeIntake Total 500 ml 660 ml OutputOutput Total 2300 ml BalanceBalance -2300 ml 500 ml 660 ml Exam left chest [place] cath Constitutional: alert, frail Psych: confusion Gastrointestinal: soft, other (GT) Musculoskeletal: muscle weakness Results Result Diagram: 03/23/19 0529 03/22/19 0547 Results 24hrs Laboratory Tests Test 03/24/19 20:23 Bedside Glucose 149 Medications Medication Current Medications Aspirin (Aspirin) 81 mg DAILY GTB Last administered on 02/26/19at 10:20; Admin Dose 81 MG; Start 02/19/19 at 09:00; Status Hold Mupirocin (Bactroban) 1 applic BID TOP Last administered on 03/25/19at 10:02; Admin Dose 1 APPLIC; Start 02/22/19 at 14:00 Insulin Glargine (Lantus) 4 units DAILY@2000 SC Last administered on 03/24/19at 20:47; Admin Dose 4 UNITS; Start 02/26/19 at 20:00 Epoetin Michael-epbx (Retacrit (Esrd)) 4,000 unit MoWeFr@1700 SC Last administered on 03/23/19at 17:09; Admin Dose 4,000 UNIT; Start 02/28/19 at 17:00 Olanzapine (Zyprexa) 2.5 mg DAILY GTB Last administered on 03/25/19at 10:01; Admin Dose 2.5 MG; Start 03/01/19 at 09:00 Lansoprazole (Prevacid) 30 mg BID@0600,1800 GTB Last administered on 03/25/19at 05:59; Admin Dose 30 MG; Start 02/28/19 at 18:00 Ferrous Sulfate (Feosol Liquid Cup) 300 mg BID GTB Last administered on 03/25/19at 10:01; Admin Dose 300 MG; Start 03/08/19 at 09:00 Albuterol/ Ipratropium (Duoneb) 3 ml Q4H RESP THERAPY HHN Last administered on 03/25/19at 13:32; Admin Dose 3 ML; Start 03/12/19 at 10:00 Albuterol/ Ipratropium (Duoneb) 3 ml Q2H RESP THERAPY PRN HHN SHORTNESS OF BREATH; Start 03/12/19 at 10:00 Miscellaneous Information 1 ea NOTE XX ; Start 03/13/19 at 16:30 Glucose (Glutose) 15 gm Q15M PRN PO DECREASED GLUCOSE; Start 03/13/19 at 16:30 Glucose (Glutose) 22.5 gm Q15M PRN PO DECREASED GLUCOSE; Start 03/13/19 at 16:30 Dextrose (D50w Syringe) 25 ml Q15M PRN IV DECREASED GLUCOSE; Start 03/13/19 at 16:30 Dextrose (D50w Syringe) 50 ml Q15M PRN IV DECREASED GLUCOSE; Start 03/13/19 at 16:30 Glucagon (Glucagen) 1 mg Q15M PRN IM DECREASED GLUCOSE; Start 03/13/19 at 16:30 Glucose (Glutose) 15 gm Q15M PRN BUCCAL DECREASED GLUCOSE; Start 03/13/19 at 16:30 Miconazole (Monistat-7) 1 supp HS VAG Last administered on 03/20/19at 20:58; Admin Dose 1 SUPP; Start 03/19/19 at 21:00; Stop 03/25/19 at 21:01 Miscellaneous Information (*Order Clarification Bulletin) MEDICATION REQUIRES CLARIFICATI... Q8H XX ; Start 03/21/19 at 09:30 Miscellaneous Information 1 ea BID XX ; Start 03/21/19 at 22:00 Lorazepam (Ativan) 0.5 mg QID PRN GTB ANXIETY Last administered on 03/24/19at 19:53; Admin Dose 0.5 MG; Start 03/23/19 at 20:00 Acetaminophen (Tylenol Liquid) 650 mg Q4H PRN GTB MILD PAIN(1-3)OR ELEVATED TEMP Last administered on 03/25/19at 05:59; Admin Dose 650 MG; Start 03/23/19 at 20:00 FLAVIO CLAYTON March 25, 2019 14:50
--- NOTE | 2019-03-25 15:51 | PN ---
DATE: 03/25/2019 SUBJECTIVE: The patient seen lying in bed comfortably, anxious and comes in restraints, on dialysis today. PHYSICAL EXAMINATION: VITAL SIGNS: Temperature is 97.9, pulse 89, respirations 18, blood pressure 150/67, saturation 98% o n room air. GENERAL: The patient is in no acute distress. HEENT: The patient is frail, pale, temporal wasting. Decreased dentition. CARDIOVASCULAR: S1, S2. CHEST: Left PermCath. LUNGS: Clear. ABDOMEN: Soft. G-tube in place. EXTREMITIES: No clubbing, cyanosis. Trace edema in upper extremities. LABORATORY DATA: No new labs today. Labs dated 03/22/2019 were reviewed. The patient's last glucos e level was 149, 162 and 153. CURRENT MEDICATIONS: All reviewed today. They include: 1. Ativan. 2. Tylenol. 3. Monistat. 4. Hypoglycemia protocol. 5. Albuterol as directed. 6. Ferrous sulfate 300 b.i.d. 7. Olanzapine 2.5 daily. 8. Prevacid 30 mg b.i.d. 9. Epogen as directed every Thursday, Thursday, Thursday with dialysis. 10. Lantus 4 units daily. 11. Bactroban ointment as directed. ASSESSMENT AND PLAN: This is a very unfortunate 83-year-old [place]an female with history of end-stag e renal disease, vascular dementia, hypertension, diabetes mellitus, anemia, presented with bacteremi a, line sepsis, urinary tract infection and aspiration pneumonia. 1. Respiratory: Continue aspiration precautions. Recent chest x-ray did show improvement. Finishe d the course of IV antibiotics for aspiration pneumonia. Continue head elevation. 2. Cardiovascular: Vitals are stable. Off blood thinners due to frequent need for transfusion. Ch tristan H and H periodically. 3. Hypertension, controlled with above medications. 4. Anemia. Continue Epogen, iron supplements and transfusion p.r.n. 5. End-stage renal disease. Dialysis today. 6. Infectious disease: Off antibiotics, only on Monistat vaginally per ID. 7. Psychiatric disorder, on Zyprexa. 8. Transfer to nursing home facility when bed is available. residential field manager is assisting. We will follow. Check again labs periodically. 9. The patient is DNR. Overall, long-term prognosis is poor quality of life. Dictated By: DYLON HULL/MADAN Conf#: [id number] DID#: [id number] CC: JOSE RAUL ANDREWS;*EndCC*
[2019-03-25] MEDS: EPOETIN ALFA-EPBX (ESRD) 4,000 UNIT/ML VIAL SC SCH (17:33)
[2019-03-25] MEDS: INSULIN GLARGINE [LANTus] (100 UNITS/ML) SYG SC SCH (20:13)
[2019-03-25] MEDS: MICONAZOLE 100 MG VAG SUPP VAG SCH (21:00)
[2019-03-26] VITALS (28 sets, daily range): BP systolic 77–165; BP diastolic 45–75; PULSE 87–109; RESP 17–20
[2019-03-26] MEDS: ALBUTEROL/IPRATROPIUM (NEB) 3 ML AMP HHN SCH ×5 (00:04→21:07)
[2019-03-26] MEDS: LORAZEPAM 0.5 MG TAB GTB PRN ×2 (05:43→15:20)
[2019-03-26] MEDS: LANSOPRAZOLE 30 MG CAP GTB SCH ×2 (05:45→18:04)
[2019-03-26] MEDS: OLANZAPINE 2.5 MG TAB GTB SCH (08:33)
[2019-03-26] MEDS: FERROUS SULFATE 60 MG/ML 5ML CUP GTB SCH ×2 (08:33→23:47)
[2019-03-26] MEDS: MUPIROCIN 2% 22 GM OINT TOP SCH (08:33)
[2019-03-26] MEDS: (Nursing Note) XX SCH ×2 (09:00→21:00)
--- NOTE | 2019-03-26 11:19 | PN ---
DATE: 03/26/2019 The patient seen, alert, on restraints due to confusion. Overall, appears to be comfortable. PHYSICAL EXAMINATION: VITAL SIGNS: Temperature 98.7, pulse 95, respirations 20, blood pressure 154/60, saturation 99% on r oom air. GENERAL: No acute distress. HEENT: Normocephalic, atraumatic. Pale, frail. CARDIOVASCULAR: S1, S2, regular rate. LUNGS: Clear. ABDOMEN: Soft. G-tube in place. EXTREMITIES: No clubbing, cyanosis, or edema. The patient does have heel protectors. LABORATORY DATA: No new labs today. Last glucose of 105, 149, 162. CURRENT MEDICATIONS: Reviewed. 1. Ativan p.r.n. 2. Tylenol p.r.n. 3. Hypoglycemia protocol as directed. 4. DuoNeb every 4 hours. 5. Ferrous sulfate 300 b.i.d. 6. Zyprexa 2.5 mg daily. 7. Prevacid 30 mg b.i.d. 8. Epogen. 9. Lantus 4 mg daily. 10. Bactroban as directed. ASSESSMENT AND PLAN: This is an 83-year-old [place]i female with history of end-stage renal disease, vascular dementia, hypertension, diabetes mellitus, anemia, presented with bacteremia, line sepsis, urinary tract infection, and aspiration pneumonia. 1. Respiratory. Continue aspiration precaution. Chest x-ray shows improvement. Continue O2 suppor t as needed. Stable. Finished a course of antibiotics for aspiration pneumonia. 2. Cardiovascular. Vitals are stable, off blood thinners due to frequent need for transfusion. 3. Anemia. Continue Epogen, iron supplements and transfuse p.r.n. Monitor hemoglobin and hematocri t. 4. Hypertension, controlled with above meds. 5. End-stage renal disease, dialysis every Thursday, Thursday and Thursday. 6. Infectious disease. Finished a course of antibiotic for aspiration pneumonia. Monitor closely. Check WBCs intermittently. 7. Psychiatric disorder. At baseline currently. Continue Zyprexa. 8. Awaiting transfer to [facility] facility when bed is available. manager cargo is assisting. 9. The patient is DNR with overall long-term prognosis is poor. 10. Diabetes mellitus. Glucose level in the 100s. Continue Lantus 4 units daily. Previously on Tr adjenta. 11. High risk of fall on restraints. 12. We will follow. Dictated By: DYLON HULL/MADAN Conf#: [id number] DID#: [id number]
--- NOTE | 2019-03-26 11:57 | CONS ---
Assessment/Plan Assessment/Plan Hospital Course (Demo Recall) 1. End-stage renal disease on hemodialysis. 2. Anemia of chronic disease 3. Urinary tract infection. 4. Hypertension. 5. Dementia. 6. Diabetes mellitus type II. 7. Diastolic heart failure. 8. Moderate protein energy malnutrition with cachexia. 9. Osteoarthritis. 10. GT status Assessment/Plan (Daily) -c/w HD -UA -c/w Epogen per deangelo. -renally dose drugs Consultation Date/Type/Reason Admit Date/Time Feb 19, 2019 at 01:01 Initial Consult Date 02/19/2019 Type of Consult nephrology Requesting Provider: JOSE RAUL ANDREWS MD Date/Time of Note DATE: 03/26/19 TIME: 11:54 24 HR Interval Summary Constitutional: disoriented Exam/Review of Systems Exam Vitals Vital Signs Date Temp Pulse Resp B/P (MAP) Pulse Ox O2 O2 Flow FiO2 Time Delivery Rate 03/26/19 98.7 95 20 154/68 99 Room Air 09:56 (96) 03/26/19 21 09:42 Intake and Output 03/25/19 03/25/19 03/26/19 1515:00 23:00 07:00 IntakeIntake Total 550 ml 550 ml BalanceBalance 550 ml 550 ml Exam left xchest Permcath Constitutional: frail Psych: no complaints Head: normocephalic Eyes: nl conjunctiva Neck: supple Respiratory: diminished breath sounds Cardiovascular: regular rate and rhythm 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: confused Results Result Diagram: 03/23/19 0529 03/22/19 0547 Results 24hrs Laboratory Tests Test 03/25/19 20:04 Bedside Glucose 105 Medications Medication Current Medications Aspirin (Aspirin) 81 mg DAILY GTB Last administered on 02/26/19at 10:20; Admin Dose 81 MG; Start 02/19/19 at 09:00; Status Hold Mupirocin (Bactroban) 1 applic BID TOP Last administered on 03/26/19at 08:33; Admin Dose 1 APPLIC; Start 02/22/19 at 14:00 Insulin Glargine (Lantus) 4 units DAILY@2000 SC Last administered on 03/25/19at 20:13; Admin Dose 4 UNITS; Start 02/26/19 at 20:00 Epoetin Michael-epbx (Retacrit (Esrd)) 4,000 unit MoWeFr@1700 SC Last administered on 03/25/19at 17:33; Admin Dose 4,000 UNIT; Start 02/28/19 at 17:00 Olanzapine (Zyprexa) 2.5 mg DAILY GTB Last administered on 03/26/19at 08:33; Admin Dose 2.5 MG; Start 03/01/19 at 09:00 Lansoprazole (Prevacid) 30 mg BID@0600,1800 GTB Last administered on 03/26/19at 05:45; Admin Dose 30 MG; Start 02/28/19 at 18:00 Ferrous Sulfate (Feosol Liquid Cup) 300 mg BID GTB Last administered on at 08:33; Admin Dose 300 MG; Start 03/08/19 at 09:00 Albuterol/ Ipratropium (Duoneb) 3 ml Q4H RESP THERAPY HHN Last administered on 03/26/19at 09:36; Admin Dose 3 ML; Start 03/12/19 at 10:00 Albuterol/ Ipratropium (Duoneb) 3 ml Q2H RESP THERAPY PRN HHN SHORTNESS OF BREATH; Start 03/12/19 at 10:00 Miscellaneous Information 1 ea NOTE XX ; Start 03/13/19 at 16:30 Glucose (Glutose) 15 gm Q15M PRN PO DECREASED GLUCOSE; Start 03/13/19 at 16:30 Glucose (Glutose) 22.5 gm Q15M PRN PO DECREASED GLUCOSE; Start 03/13/19 at 16:30 Dextrose (D50w Syringe) 25 ml Q15M PRN IV DECREASED GLUCOSE; Start 03/13/19 at 16:30 Dextrose (D50w Syringe) 50 ml Q15M PRN IV DECREASED GLUCOSE; Start 03/13/19 at 16:30 Glucagon (Glucagen) 1 mg Q15M PRN IM DECREASED GLUCOSE; Start 03/13/19 at 16:30 Glucose (Glutose) 15 gm Q15M PRN BUCCAL DECREASED GLUCOSE; Start 03/13/19 at 16:30 Miscellaneous Information (*Order Clarification Bulletin) MEDICATION REQUIRES CLARIFICATI... Q8H XX ; Start 03/21/19 at 09:30 Miscellaneous Information 1 ea BID XX ; Start 03/21/19 at 22:00 Lorazepam (Ativan) 0.5 mg QID PRN GTB ANXIETY Last administered on 03/26/19at 05:43; Admin Dose 0.5 MG; Start 03/23/19 at 20:00 Acetaminophen (Tylenol Liquid) 650 mg Q4H PRN GTB MILD PAIN(1-3)OR ELEVATED TEMP Last administered on 03/25/19at 20:05; Admin Dose 650 MG; Start 03/23/19 at 20:00 FLAVIO CLAYTON March 26, 2019 11:57
--- NOTE | 2019-03-26 13:22 | CONS ---
Consultation Date/Type/Reason Admit Date/Time Feb 19, 2019 at 01:01 Initial Consult Date SUBJECTIVE: Patient is awake, slightly agitated. Altered. No fevers. No cute events over night. VS: stable T: 98.9 LABS: Reviewed. Antimicrobials: none Indwelling: Left subclavian permacath, PEG Microbiology: Urine culture on admission grew Dominique glabrata. Blood culture growing Enterococcus ==Repeat blood cultures from hemodialysis catheter negative 2D ECHO: no vegetations per ECHO Physical examination: GEN: This is a chronically ill-appearing wasted elderly woman, who is in no distress. HENT: Head atraumatic normocephalic. Neck is supple. PULM: Chest rise symmetrical breath sounds with scattered rhonchi, diminished bases. Heart: S1-S2. Abdomen: soft, bowel sounds present. Extremities: no cyanosis, no edema. Assessment: 1. Acute hypoxemia ==> combination of aspiration and fluid overload 2. Status post recurrent UTI and bacteremia 4. End-stage renal disease, hemodialysis dependent 5. Anemia 6. 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 8. S/p sepsis, present on admission PLAN: Pt is stable Pending placement at SNF. Currently off of antbx. Will monitor. Requesting Provider: JOSE RAUL ANDREWS MD Date/Time of Note DATE: 03/26/19 TIME: 13:19 Exam/Review of Systems Exam Vitals Vital Signs Date Temp Pulse Resp B/P (MAP) Pulse Ox O2 O2 Flow FiO2 Time Delivery Rate 03/26/19 98.9 94 20 156/69 100 Room Air 12:00 (98) 03/26/19 21 09:42 Intake and Output 03/25/19 03/25/19 03/26/19 1515:00 23:00 07:00 IntakeIntake Total 550 ml 550 ml BalanceBalance 550 ml 550 ml Results Result Diagram: 03/23/19 0529 03/22/19 0547 Results 24hrs Laboratory Tests Test 03/25/19 20:04 Bedside Glucose 105 Medications Medication Current Medications Aspirin (Aspirin) 81 mg DAILY GTB Last administered on 02/26/19at 10:20; Admin Dose 81 MG; Start 02/19/19 at 09:00; Status Hold Mupirocin (Bactroban) 1 applic BID TOP Last administered on 03/26/19at 08:33; Admin Dose 1 APPLIC; Start 02/22/19 at 14:00 Insulin Glargine (Lantus) 4 units DAILY@2000 SC Last administered on 03/25/19at 20:13; Admin Dose 4 UNITS; Start 02/26/19 at 20:00 Epoetin Michael-epbx (Retacrit (Esrd)) 4,000 unit MoWeFr@1700 SC Last administered on 03/25/19at 17:33; Admin Dose 4,000 UNIT; Start 02/28/19 at 17:00 Olanzapine (Zyprexa) 2.5 mg DAILY GTB Last administered on 03/26/19at 08:33; Admin Dose 2.5 MG; Start 03/01/19 at 09:00 Lansoprazole (Prevacid) 30 mg BID@0600,1800 GTB Last administered on 03/26/19at 05:45; Admin Dose 30 MG; Start 02/28/19 at 18:00 Ferrous Sulfate (Feosol Liquid Cup) 300 mg BID GTB Last administered on 03/26/19at 08:33; Admin Dose 300 MG; Start 03/08/19 at 09:00 Albuterol/ Ipratropium (Duoneb) 3 ml Q4H RESP THERAPY HHN Last administered on 03/26/19at 09:36; Admin Dose 3 ML; Start 03/12/19 at 10:00 Albuterol/ Ipratropium (Duoneb) 3 ml Q2H RESP THERAPY PRN HHN SHORTNESS OF BREATH; Start 03/12/19 at 10:00 Miscellaneous Information 1 ea NOTE XX ; Start 03/13/19 at 16:30 Glucose (Glutose) 15 gm Q15M PRN PO DECREASED GLUCOSE; Start 03/13/19 at 16:30 Glucose (Glutose) 22.5 gm Q15M PRN PO DECREASED GLUCOSE; Start 03/13/19 at 16:30 Dextrose (D50w Syringe) 25 ml Q15M PRN IV DECREASED GLUCOSE; Start 03/13/19 at 16:30 Dextrose (D50w Syringe) 50 ml Q15M PRN IV DECREASED GLUCOSE; Start 03/13/19 at 16:30 Glucagon (Glucagen) 1 mg Q15M PRN IM DECREASED GLUCOSE; Start 03/13/19 at 16:30 Glucose (Glutose) 15 gm Q15M PRN BUCCAL DECREASED GLUCOSE; Start 03/13/19 at 16:30 Miscellaneous Information (*Order Clarification Bulletin) MEDICATION REQUIRES CLARIFICATI... Q8H XX ; Start 03/21/19 at 09:30 Miscellaneous Information 1 ea BID XX ; Start 03/21/19 at 22:00 Lorazepam (Ativan) 0.5 mg QID PRN GTB ANXIETY Last administered on 03/26/19at 05:43; Admin Dose 0.5 MG; Start 03/23/19 at 20:00 Acetaminophen (Tylenol Liquid) 650 mg Q4H PRN GTB MILD PAIN(1-3)OR ELEVATED TEMP Last administered on 03/25/19at 20:05; Admin Dose 650 MG; Start 03/23/19 at 20:00 Amlodipine Besylate (Norvasc) 5 mg BID GTB ; Start 03/26/19 at 21:00 Ascorbic Acid (Vitamin C) 500 mg DAILY GTB ; Start 03/27/19 at 09:00 Docusate Sodium (Colace Liquid Cup) 100 mg BID GTB ; Start 03/26/19 at 21:00 Folic Acid (Folic Acid) 1 mg DAILY GTB ; Start 03/27/19 at 09:00 Linagliptin (Tradjenta) 5 mg DAILY PO ; Start 03/27/19 at 09:00 Metoprolol Tartrate (Lopressor) 50 mg BID GTB ; Start 03/26/19 at 21:00 Atorvastatin Calcium (Lipitor) 40 mg HS GTB ; Start 03/26/19 at 21:00 SCOTT SHEEHAN March 26, 2019 13:22
[2019-03-26] MEDS: INSULIN GLARGINE [LANTus] (100 UNITS/ML) SYG SC SCH (23:45)
[2019-03-26] MEDS: DOCUSATE SODIUM 10 MG/ML (10ML CUP) GTB SCH (23:47)
[2019-03-26] MEDS: ATORVASTATIN 40 MG TAB GTB SCH (23:48)
[2019-03-26] MEDS: AMLODIPINE 5 MG TAB GTB SCH (23:48)
[2019-03-26] MEDS: METOPROLOL 50 MG TAB GTB SCH (23:49)
[2019-03-27] VITALS (19 sets, daily range): BP systolic 117–155; BP diastolic 57–73; PULSE 68–97; RESP 17–20
[2019-03-27] MEDS: ALBUTEROL/IPRATROPIUM (NEB) 3 ML AMP HHN SCH ×6 (01:37→20:29)
[2019-03-27] MEDS: LANSOPRAZOLE 30 MG CAP GTB SCH ×2 (06:14→18:43)
[2019-03-27] MEDS: METOPROLOL 50 MG TAB GTB SCH ×2 (09:21→21:25)
[2019-03-27] MEDS: FERROUS SULFATE 60 MG/ML 5ML CUP GTB SCH ×2 (09:21→21:24)
[2019-03-27] MEDS: DOCUSATE SODIUM 10 MG/ML (10ML CUP) GTB SCH ×2 (09:21→21:24)
[2019-03-27] MEDS: AMLODIPINE 5 MG TAB GTB SCH ×2 (09:22→21:26)
[2019-03-27] MEDS: OLANZAPINE 2.5 MG TAB GTB SCH (09:22)
[2019-03-27] MEDS: LINAGLIPTIN 5 MG TABLET PO SCH (09:22)
[2019-03-27] MEDS: FOLIC ACID 1 MG TAB GTB SCH (09:22)
[2019-03-27] MEDS: ASCORBIC ACID 500 MG TAB GTB SCH (09:22)
--- NOTE | 2019-03-27 11:57 | CONS ---
Consultation Date/Type/Reason Admit Date/Time Feb 19, 2019 at 01:01 Initial Consult Date SUBJECTIVE: Patient is awake, agitated. Altered. No fevers. No cute events over night. VS: stable T: 98.6 LABS: Reviewed. WBC- 9.3 Antimicrobials: none Indwelling: Left subclavian permacath, PEG Microbiology: Urine culture on admission grew Dominique glabrata. Blood culture growing Enterococcus ==Repeat blood cultures from hemodialysis catheter negative 2D ECHO: no vegetations per ECHO Physical examination: GEN: This is a chronically ill-appearing wasted elderly woman, who is in no distress. HENT: Head atraumatic normocephalic. Neck is supple. PULM: Chest rise symmetrical breath sounds with scattered rhonchi, diminished bases. Heart: S1-S2. Abdomen: soft, bowel sounds present. Extremities: no cyanosis, no edema. Assessment: 1. Acute hypoxemia ==> combination of aspiration and fluid overload 2. Status post recurrent UTI and bacteremia 4. End-stage renal disease, hemodialysis dependent 5. Anemia 6. 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 8. S/p sepsis, present on admission PLAN: Pt is stable Pending placement at SNF. Currently off of antbx. Will monitor. Requesting Provider: JOSE RAUL ANDREWS MD Date/Time of Note DATE: 03/27/19 TIME: 11:56 Exam/Review of Systems Exam Vitals Vital Signs Date Temp Pulse Resp B/P (MAP) Pulse Ox O2 O2 Flow FiO2 Time Delivery Rate 03/27/19 98.6 71 20 137/60 100 11:22 (85) 03/27/19 21 08:18 03/26/19 Room Air 23:11 Intake and Output 03/26/19 03/26/19 03/27/19 1515:00 23:00 07:00 IntakeIntake Total 500 ml OutputOutput Total 1800 ml BalanceBalance -1800 ml 500 ml Results Result Diagram: 03/27/19 0533 03/27/19 0533 Results 24hrs Laboratory Tests Test 03/26/19 22:09 03/27/19 05:33 Bedside Glucose 125 White Blood Count 9.3 Red Blood Count 3.48 L Hemoglobin 9.3 L Hematocrit 29.5 L Mean Corpuscular Volume 84.8 Mean Corpuscular Hemoglobin 26.7 L Mean Corpuscular Hemoglobin Concent 31.5 L Red Cell Distribution Width 15.9 H Platelet Count 235 Mean Platelet Volume 12.5 H Immature Granulocytes % 0.800 H Neutrophils % 78.0 H Lymphocytes % 5.6 L Monocytes % 8.1 Eosinophils % 7.0 Basophils % 0.5 Nucleated Red Blood Cells % 0.6 H Immature Granulocytes # 0.070 H Neutrophils # 7.3 Lymphocytes # 0.5 L Monocytes # 0.8 Eosinophils # 0.7 H Basophils # 0.1 Nucleated Red Blood Cells # 0.1 H Sodium Level 138 Potassium Level 4.2 Chloride Level 102 Carbon Dioxide Level 27 Anion Gap 9 Blood Urea Nitrogen 31 H Creatinine 1.01 H Est Glomerular Filtrat Rate mL/min Glucose Level 143 Calcium Level 8.7 Phosphorus Level 2.7 Magnesium Level 2.2 Total Bilirubin 0.6 Direct Bilirubin 0.00 Indirect Bilirubin 0.6 Aspartate Amino Transf (AST/SGOT) 33 Alanine Aminotransferase (ALT/SGPT) 20 Alkaline Phosphatase 188 H Total Protein 7.5 Albumin 3.4 Globulin 4.10 H Albumin/Globulin Ratio 0.82 Medications Medication Current Medications Aspirin (Aspirin) 81 mg DAILY GTB Last administered on 02/26/19 10:20; Admin Dose 81 MG; Start 02/19/19 at 09:00; Status Hold Insulin Glargine (Lantus) 4 units DAILY@2000 SC Last administered on 03/26/19 23:45; Admin Dose 4 UNITS; Start 02/26/19 at 20:00 Epoetin Michael-epbx (Retacrit (Esrd)) 4,000 unit MoWeFr@1700 SC Last administered on 03/25/19 17:33; Admin Dose 4,000 UNIT; Start 02/28/19 at 17:00 Olanzapine (Zyprexa) 2.5 mg DAILY GTB Last administered on 03/27/19 09:22; Admin Dose 2.5 MG; Start 03/01/19 at 09:00 Lansoprazole (Prevacid) 30 mg BID@0600,1800 GTB Last administered on 03/27/19 06:14; Admin Dose 30 MG; Start 02/28/19 at 18:00 Ferrous Sulfate (Feosol Liquid Cup) 300 mg BID GTB Last administered on 03/27/19 09:21; Admin Dose 300 MG; Start 03/08/19 at 09:00 Albuterol/ Ipratropium (Duoneb) 3 ml Q4H RESP THERAPY HHN Last administered on 03/27/19at 08:17; Admin Dose 3 ML; Start 03/12/19 at 10:00 Albuterol/ Ipratropium (Duoneb) 3 ml Q2H RESP THERAPY PRN HHN SHORTNESS OF BREATH; Start 03/12/19 at 10:00 Miscellaneous Information 1 ea NOTE XX ; Start 03/13/19 at 16:30 Glucose (Glutose) 15 gm Q15M PRN PO DECREASED GLUCOSE; Start 03/13/19 at 16:30 Glucose (Glutose) 22.5 gm Q15M PRN PO DECREASED GLUCOSE; Start 03/13/19 at 16:30 Dextrose (D50w Syringe) 25 ml Q15M PRN IV DECREASED GLUCOSE; Start 03/13/19 at 16:30 Dextrose (D50w Syringe) 50 ml Q15M PRN IV DECREASED GLUCOSE; Start 03/13/19 at 16:30 Glucagon (Glucagen) 1 mg Q15M PRN IM DECREASED GLUCOSE; Start 03/13/19 at 16:30 Glucose (Glutose) 15 gm Q15M PRN BUCCAL DECREASED GLUCOSE; Start 03/13/19 at 16:30 Lorazepam (Ativan) 0.5 mg QID PRN GTB ANXIETY Last administered on 03/26/19at 15:20; Admin Dose 0.5 MG; Start 03/23/19 at 20:00 Acetaminophen (Tylenol Liquid) 650 mg Q4H PRN GTB MILD PAIN(1-3)OR ELEVATED TEMP Last administered on 03/25/19at 20:05; Admin Dose 650 MG; Start 03/23/19 at 20:00 Amlodipine Besylate (Norvasc) 5 mg BID GTB Last administered on 03/27/19 09:22; Admin Dose 5 MG; Start 03/26/19 at 21:00 Ascorbic Acid (Vitamin C) 500 mg DAILY GTB Last administered on 03/27/19 09:22; Admin Dose 500 MG; Start 03/27/19 at 09:00 Docusate Sodium (Colace Liquid Cup) 100 mg BID GTB Last administered on 03/27/19at 09:21; Admin Dose 100 MG; Start 03/26/19 at 21:00 Folic Acid (Folic Acid) 1 mg DAILY GTB Last administered on 03/27/19 09:22; Admin Dose 1 MG; Start 03/27/19 at 09:00 Linagliptin (Tradjenta) 5 mg DAILY PO Last administered on 03/27/19 09:22; Admin Dose 5 MG; Start 03/27/19 at 09:00 Metoprolol Tartrate (Lopressor) 50 mg BID GTB Last administered on 03/27/19 09:21; Admin Dose 50 MG; Start 03/26/19 at 21:00 Atorvastatin Calcium (Lipitor) 40 mg HS GTB Last administered on 03/26/19at 23:48; Admin Dose 40 MG; Start 03/26/19 at 21:00 SCOTT SHEEHAN March 27, 2019 11:56
--- NOTE | 2019-03-27 12:22 | CONS ---
Assessment/Plan Assessment/Plan Hospital Course (Demo Recall) 1. End-stage renal disease on hemodialysis. 2. Anemia of chronic disease 3. Urinary tract infection. 4. Hypertension. 5. Dementia. 6. Diabetes mellitus type II. 7. Diastolic heart failure. 8. Moderate protein energy malnutrition with cachexia. 9. Osteoarthritis. 10. GT status Assessment/Plan (Daily) -c/w epogen -Perm cath is functional -C/w Epogen -phos is normal, no need phos binding agents Consultation Date/Type/Reason Admit Date/Time Feb 19, 2019 at 01:01 Initial Consult Date 02/19/2019 Type of Consult nephrology Requesting Provider: JOSE RAUL ANDREWS MD Date/Time of Note DATE: 03/27/19 TIME: 12:22 24 HR Interval Summary Constitutional: disoriented Exam/Review of Systems Exam Vitals Vital Signs Date Temp Pulse Resp B/P (MAP) Pulse Ox O2 O2 Flow FiO2 Time Delivery Rate 03/27/19 98.6 71 20 137/60 100 11:22 (85) 03/27/19 21 08:18 03/26/19 Room Air 23:11 Intake and Output 03/26/19 03/26/19 03/27/19 1515:00 23:00 07:00 IntakeIntake Total 500 ml OutputOutput Total 1800 ml BalanceBalance -1800 ml 500 ml Exam sleeping, left chest Permcath no bleeding Constitutional: frail Head: normocephalic Neck: supple Respiratory: diminished breath sounds Cardiovascular: regular rate and rhythm Gastrointestinal: soft, other (GT) Musculoskeletal: muscle weakness Results Result Diagram: 03/27/19 0533 03/27/19 0533 Results 24hrs Laboratory Tests Test 03/26/19 22:09 03/27/19 05:33 Bedside Glucose 125 White Blood Count 9.3 Red Blood Count 3.48 L Hemoglobin 9.3 L Hematocrit 29.5 L Mean Corpuscular Volume 84.8 Mean Corpuscular Hemoglobin 26.7 L Mean Corpuscular Hemoglobin Concent 31.5 L Red Cell Distribution Width 15.9 H Platelet Count 235 Mean Platelet Volume 12.5 H Immature Granulocytes % 0.800 H Neutrophils % 78.0 H Lymphocytes % 5.6 L Monocytes % 8.1 Eosinophils % 7.0 Basophils % 0.5 Nucleated Red Blood Cells % 0.6 H Immature Granulocytes # 0.070 H Neutrophils # 7.3 Lymphocytes # 0.5 L Monocytes # 0.8 Eosinophils # 0.7 H Basophils # 0.1 Nucleated Red Blood Cells # 0.1 H Sodium Level 138 Potassium Level 4.2 Chloride Level 102 Carbon Dioxide Level 27 Anion Gap 9 Blood Urea Nitrogen 31 H Creatinine 1.01 H Est Glomerular Filtrat Rate mL/min Glucose Level 143 Calcium Level 8.7 Phosphorus Level 2.7 Magnesium Level 2.2 Total Bilirubin 0.6 Direct Bilirubin 0.00 Indirect Bilirubin 0.6 Aspartate Amino Transf (AST/SGOT) 33 Alanine Aminotransferase (ALT/SGPT) 20 Alkaline Phosphatase 188 H Total Protein 7.5 Albumin 3.4 Globulin 4.10 H Albumin/Globulin Ratio 0.82 Medications Medication Current Medications Aspirin (Aspirin) 81 mg DAILY GTB Last administered on 02/26/19 10:20; Admin Dose 81 MG; Start 02/19/19 at 09:00; Status Hold Insulin Glargine (Lantus) 4 units DAILY@2000 SC Last administered on 03/26/19at 23:45; Admin Dose 4 UNITS; Start 02/26/19 at 20:00 Epoetin Michael-epbx (Retacrit (Esrd)) 4,000 unit MoWeFr@1700 SC Last administered on 03/25/19 17:33; Admin Dose 4,000 UNIT; Start 02/28/19 at 17:00 Olanzapine (Zyprexa) 2.5 mg DAILY GTB Last administered on 03/27/19 09:22; Admin Dose 2.5 MG; Start 03/01/19 at 09:00 Lansoprazole (Prevacid) 30 mg BID@0600,1800 GTB Last administered on 03/27/19at 06:14; Admin Dose 30 MG; Start 02/28/19 at 18:00 Ferrous Sulfate (Feosol Liquid Cup) 300 mg BID GTB Last administered on 03/27/19 09:21; Admin Dose 300 MG; Start 03/08/19 at 09:00 Albuterol/ Ipratropium (Duoneb) 3 ml Q4H RESP THERAPY HHN Last administered on 03/27/19 08:17; Admin Dose 3 ML; Start 03/12/19 at 10:00 Albuterol/ Ipratropium (Duoneb) 3 ml Q2H RESP THERAPY PRN HHN SHORTNESS OF BREATH; Start 03/12/19 at 10:00 Miscellaneous Information 1 ea NOTE XX ; Start 03/13/19 at 16:30 Glucose (Glutose) 15 gm Q15M PRN PO DECREASED GLUCOSE; Start 03/13/19 at 16:30 Glucose (Glutose) 22.5 gm Q15M PRN PO DECREASED GLUCOSE; Start 03/13/19 at 16:30 Dextrose (D50w Syringe) 25 ml Q15M PRN IV DECREASED GLUCOSE; Start 03/13/19 at 16:30 Dextrose (D50w Syringe) 50 ml Q15M PRN IV DECREASED GLUCOSE; Start 03/13/19 at 16:30 Glucagon (Glucagen) 1 mg Q15M PRN IM DECREASED GLUCOSE; Start 03/13/19 at 16:30 Glucose (Glutose) 15 gm Q15M PRN BUCCAL DECREASED GLUCOSE; Start 03/13/19 at 16:30 Lorazepam (Ativan) 0.5 mg QID PRN GTB ANXIETY Last administered on 03/26/19at 15:20; Admin Dose 0.5 MG; Start 03/23/19 at 20:00 Acetaminophen (Tylenol Liquid) 650 mg Q4H PRN GTB MILD PAIN(1-3)OR ELEVATED TEMP Last administered on 03/25/19at 20:05; Admin Dose 650 MG; Start 03/23/19 at 20:00 Amlodipine Besylate (Norvasc) 5 mg BID GTB Last administered on 03/27/19 09:22 ; Admin Dose 5 MG; Start 03/26/19 at 21:00 Ascorbic Acid (Vitamin C) 500 mg DAILY GTB Last administered on 03/27/19 09:22; Admin Dose 500 MG; Start 03/27/19 at 09:00 Docusate Sodium (Colace Liquid Cup) 100 mg BID GTB Last administered on 03/27/19 09:21; Admin Dose 100 MG; Start 03/26/19 at 21:00 Folic Acid (Folic Acid) 1 mg DAILY GTB Last administered on 03/27/19 09:22; Admin Dose 1 MG; Start 03/27/19 at 09:00 Linagliptin (Tradjenta) 5 mg DAILY PO Last administered on 03/27/19 09:22; Adm in Dose 5 MG; Start 03/27/19 at 09:00 Metoprolol Tartrate (Lopressor) 50 mg BID GTB Last administered on 03/27/19at 09:21; Admin Dose 50 MG; Start 03/26/19 at 21:00 Atorvastatin Calcium (Lipitor) 40 mg HS GTB Last administered on 03/26/19at 23:48; Admin Dose 40 MG; Start 03/26/19 at 21:00 FLAVIO CLAYTON March 27, 2019 12:22
--- NOTE | 2019-03-27 15:58 | PN ---
DATE: 03/27/2019 SUBJECTIVE: The patient was seen, lying in bed comfortably, unfortunately on restraints due to high risk of fall. PHYSICAL EXAMINATION: VITAL SIGNS: Temperature 98.3, pulse 77, respirations 20, blood pressure 140/63, saturation is 92% o n room air. GENERAL: No acute distress. HEENT: Normocephalic, atraumatic. Pale, frail, temporal wasting. CARDIOVASCULAR: S1 and S2. Regular rate. LUNGS: Clear. ABDOMEN: Soft. EXTREMITIES: No clubbing, cyanosis or edema. LABORATORY DATA: Today show a white count is 9.3, hemoglobin 9.3, hematocrit 30, platelet count 235 with normal differential. Chemistry: Sodium 138, potassium 4.2, chloride 102, bicarbonate 27, BUN 3 1, creatinine 1.01, glucose 143. MEDICATIONS: Reviewed and include: 1. Vitamin C 500 mg daily. 2. Folic acid 1 mg daily. 3. Tradjenta 5 mg daily. 4. Norvasc 5 mg b.i.d. 5. Colace 100 b.i.d. 6. Lopressor 50 b.i.d. 7. Lipitor 40 at bedtime. 8. Ativan p.r.n. 9. Tylenol p.r.n. 10. Hypoglycemia protocol as directed. 11. DuoNeb as directed. 12. Ferrous sulfate 300 b.i.d. 13. Zyprexa 2.5 daily. 14. Prevacid 30 mg b.i.d. 15. Epogen as directed. 16. Lantus 4 units daily. ASSESSMENT AND PLAN: This is an 83-year-old [place] female with history of end-stage renal disease, vascular dementia, hypertension, diabetes mellitus, anemia, presented with bacteremia, line sepsis, urinary tract infection, aspiration pneumonia. 1. Respiratory: Stable. Monitor closely. Continue O2 support. Head elevation. 2. Cardiovascular: Stable off blood thinners due to need for transfusion. 3. Anemia. Continue Epogen, iron supplements and transfusion p.r.n. 4. Hypertension, controlled with above medications. 5. End-stage renal disease on dialysis every Thursday, Thursday, Thursday. Next dialysis is tomorrow. 6. Infectious disease. Finished a course for urinary tract infection, bacteremia and pneumonia. Wh ite count is normal. 7. Psychiatric disorder. Continue Zyprexa. 8. The patient is DNR with overall poor long-term prognosis due to multiple medical issues and bedri dden state. 9. Diabetes mellitus, poor control with Lantus and Tradjenta. 10. On restraints due to high risk of fall. We will follow. Dictated By: DYLON HULL/MADAN Conf#: [id number] DID#: [id number] CC: JOSE RAUL ANDREWS;*EndCC*
[2019-03-27] MEDS: ACETAMINOPHEN 650MG/20.3ML CUP GTB PRN (20:21)
[2019-03-27] MEDS: INSULIN GLARGINE [LANTus] (100 UNITS/ML) SYG SC SCH (20:43)
[2019-03-27] MEDS: ATORVASTATIN 40 MG TAB GTB SCH (21:24)
[2019-03-28] VITALS (22 sets, daily range): BP systolic 78–158; BP diastolic 44–107; PULSE 67–113; RESP 16–18
[2019-03-28] MEDS: ALBUTEROL/IPRATROPIUM (NEB) 3 ML AMP HHN SCH ×6 (01:01→20:20)
[2019-03-28] MEDS: LANSOPRAZOLE 30 MG CAP GTB SCH ×2 (05:50→17:26)
[2019-03-28] MEDS: FOLIC ACID 1 MG TAB GTB SCH (08:46)
[2019-03-28] MEDS: DOCUSATE SODIUM 10 MG/ML (10ML CUP) GTB SCH (08:46)
[2019-03-28] MEDS: FERROUS SULFATE 60 MG/ML 5ML CUP GTB SCH (08:46)
[2019-03-28] MEDS: OLANZAPINE 2.5 MG TAB GTB SCH (08:46)
[2019-03-28] MEDS: METOPROLOL 50 MG TAB GTB SCH (08:46)
[2019-03-28] MEDS: ASCORBIC ACID 500 MG TAB GTB SCH (08:46)
[2019-03-28] MEDS: LINAGLIPTIN 5 MG TABLET PO SCH (08:48)
[2019-03-28] MEDS: AMLODIPINE 5 MG TAB GTB SCH (08:49)
--- NOTE | 2019-03-28 12:01 | CONS ---
Assessment/Plan Assessment/Plan Assessment/Plan (Daily) Hospital Course (Demo Recall) 1. End-stage renal disease on hemodialysis. 2. Anemia of chronic disease 3. Urinary tract infection. 4. Hypertension. 5. Dementia. 6. Diabetes mellitus type II. 7. Diastolic heart failure. 8. Moderate protein energy malnutrition with cachexia. 9. Osteoarthritis. 10. GT status Assessment/Plan (Daily) -cw MWf HD -Perm cath is functional -C/w Epogen Consultation Date/Type/Reason Admit Date/Time Feb 19, 2019 at 01:01 Initial Consult Date Requesting Provider: JOSE RAUL ANDREWS MD Date/Time of Note DATE: 03/28/19 TIME: 11:59 24 HR Interval Summary Free Text/Dictation No acute events She is off restraint Exam/Review of Systems Exam Vitals Vital Signs Date Temp Pulse Resp B/P (MAP) Pulse Ox O2 O2 Flow FiO2 Time Delivery Rate 03/28/19 97.8 69 16 125/68 99 11:36 (87) 03/28/19 Room Air 10:00 03/28/19 21 09:30 Intake and Output 03/27/19 03/27/19 03/28/19 1515:00 23:00 07:00 IntakeIntake Total 350 ml 30 ml BalanceBalance 350 ml 30 ml Exam opens eyes no edema left permacath Results Result Diagram: 03/27/1953203/27/19 0533 Results 24hrs Laboratory Tests Test 03/27/19 20:30 Bedside Glucose 167 Medications Medication Current Medications Insulin Glargine (Lantus) 4 units DAILY@2000 SC Last administered on 03/27/19at 20:43; Admin Dose 4 UNITS; Start 02/26/19 at 20:00 Epoetin Michael-epbx (Retacrit (Esrd)) 4,000 unit MoWeFr@1700 SC Last administered on 03/25/19at 17:33; Admin Dose 4,000 UNIT; Start 02/28/19 at 17:00 Olanzapine (Zyprexa) 2.5 mg DAILY GTB Last administered on 03/28/19at 08:46; Admin Dose 2.5 MG; Start 03/01/19 at 09:00 Lansoprazole (Prevacid) 30 mg BID@0600,1800 GTB Last administered on 03/28/19at 05:50; Admin Dose 30 MG; Start 02/28/19 at 18:00 Ferrous Sulfate (Feosol Liquid Cup) 300 mg BID GTB Last administered on 03/28 08:46; Admin Dose 300 MG; Start 03/08/19 at 09:00 Albuterol/ Ipratropium (Duoneb) 3 ml Q4H RESP THERAPY HHN Last administered on 03/28/19at 09:30; Admin Dose 3 ML; Start 03/12/19 at 10:00 Albuterol/ Ipratropium (Duoneb) 3 ml Q2H RESP THERAPY PRN HHN SHORTNESS OF BREATH; Start 03/12/19 at 10:00 Miscellaneous Information 1 ea NOTE XX ; Start 03/13/19 at 16:30 Glucose (Glutose) 15 gm Q15M PRN PO DECREASED GLUCOSE; Start 03/13/19 at 16:30 Glucose (Glutose) 22.5 gm Q15M PRN PO DECREASED GLUCOSE; Start 03/13/19 at 16:30 Dextrose (D50w Syringe) 25 ml Q15M PRN IV DECREASED GLUCOSE; Start 03/13/19 at 16:30 Dextrose (D50w Syringe) 50 ml Q15M PRN IV DECREASED GLUCOSE; Start 03/13/19 at 16:30 Glucagon (Glucagen) 1 mg Q15M PRN IM DECREASED GLUCOSE; Start 03/13/19 at 16:30 Glucose (Glutose) 15 gm Q15M PRN BUCCAL DECREASED GLUCOSE; Start 03/13/19 at 16:30 Lorazepam (Ativan) 0.5 mg QID PRN GTB ANXIETY Last administered on 03/26/19at 15:20; Admin Dose 0.5 MG; Start 03/23/19 at 20:00 Acetaminophen (Tylenol Liquid) 650 mg Q4H PRN GTB MILD PAIN(1-3)OR ELEVATED TEMP Last administered on 03/27/19 20:21; Admin Dose 650 MG; Start 03/23/19 at 20:00 Amlodipine Besylate (Norvasc) 5 mg BID GTB Last administered on 03/28/19at 08:49; Admin Dose 5 MG; Start 03/26/19 at 21:00 Ascorbic Acid (Vitamin C) 500 mg DAILY GTB Last administered on 03/28/19at 08:46; Admin Dose 500 MG; Start 03/27/19 at 09:00 Docusate Sodium (Colace Liquid Cup) 100 mg BID GTB Last administered on 03/28/19 08:46; Admin Dose 100 MG; Start 03/26/19 at 21:00 Folic Acid (Folic Acid) 1 mg DAILY GTB Last administered on 03/28/19 08:46; Admin Dose 1 MG; Start 03/27/19 at 09:00 Linagliptin (Tradjenta) 5 mg DAILY PO Last administered on 03/28/19 08:48; Admin Dose 5 MG; Start 03/27/19 at 09:00 Metoprolol Tartrate (Lopressor) 50 mg BID GTB Last administered on 03/28/19 08:46; Admin Dose 50 MG; Start 03/26/19 at 21:00 Atorvastatin Calcium (Lipitor) 40 mg HS GTB Last administered on 03/27/19 21:24; Admin Dose 40 MG; Start 03/26/19 at 21:00 JOSE RAUL ANDREWS MD March 28, 2019 12:01
--- NOTE | 2019-03-28 14:12 | CONS ---
Assessment/Plan Assessment/Plan Hospital Course (Demo Recall) No events, looks comfortable Indwelling: Left subclavian permacath, PEG Microbiology: Urine culture on admission grew Dominique glabrata, blood culture grew Enterococcus Chest x-ray on admission revealed no definite evidence of pneumonia or CHF Physical examination: This is a chronically ill-appearing wasted elderly woman who is in no distress. Head atraumatic normocephalic. Neck is supple. Chest rise symmetrical patient is mildly tachypneic with expiratory wheezes. Heart: S1-S2, tachycardic. Abdomen soft bowel sounds present. Extremities without cyanosis edema. Assessment: 1. Acute hypoxemia ==> combination of aspiration and fluid overload 2. Status post recurrent UTI and bacteremia 4. End-stage renal disease, hemodialysis dependent 5. Anemia 6. 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 Plan: Remains stable, off abx, continue present care, aspiration precautions Consultation Date/Type/Reason Admit Date/Time Feb 19, 2019 at 01:01 Initial Consult Date Type of Consult id Requesting Provider: JOSE RAUL ANDREWS MD Date/Time of Note DATE: 03/28/19 TIME: 14:11 Exam/Review of Systems Exam Vitals Vital Signs Date Temp Pulse Resp B/P (MAP) Pulse Ox O2 O2 Flow FiO2 Time Delivery Rate 03/28/19 68 16 95 21 12:53 03/28/19 97.8 125/68 11:36 (87) 03/28/19 Room Air 10:00 Intake and Output 03/27/19 03/27/19 03/28/19 1515:00 23:00 07:00 IntakeIntake Total 350 ml 30 ml BalanceBalance 350 ml 30 ml Results Result Diagram: 03/27/19 0533 03/27/19 0533 Results 24hrs Laboratory Tests Test 03/27/19 20:30 Bedside Glucose 167 Medications Medication Current Medications Insulin Glargine (Lantus) 4 units DAILY@2000 SC Last administered on 03/27/19at 20:43; Admin Dose 4 UNITS; Start 02/26/19 at 20:00 Epoetin Michael-epbx (Retacrit (Esrd)) 4,000 unit MoWeFr@1700 SC Last administered on 03/25/19at 17:33; Admin Dose 4,000 UNIT; Start 02/28/19 at 17:00 Olanzapine (Zyprexa) 2.5 mg DAILY GTB Last administered on 03/28/19 08:46; Admin Dose 2.5 MG; Start 03/01/19 at 09:00 Lansoprazole (Prevacid) 30 mg BID@0600,1800 GTB Last administered on 03/28/19at 05:50; Admin Dose 30 MG; Start 02/28/19 at 18:00 Ferrous Sulfate (Feosol Liquid Cup) 300 mg BID GTB Last administered on 03/28/19at 08:46; Admin Dose 300 MG; Start 03/08/19 at 09:00 Albuterol/ Ipratropium (Duoneb) 3 ml Q4H RESP THERAPY HHN Last administered on 03/28/19at 12:53; Admin Dose 3 ML; Start 03/12/19 at 10:00 Albuterol/ Ipratropium (Duoneb) 3 ml Q2H RESP THERAPY PRN HHN SHORTNESS OF BREATH; Start 03/12/19 at 10:00 Miscellaneous Information 1 ea NOTE XX ; Start 03/13/19 at 16:30 Glucose (Glutose) 15 gm Q15M PRN PO DECREASED GLUCOSE; Start 03/13/19 at 16:30 Glucose (Glutose) 22.5 gm Q15M PRN PO DECREASED GLUCOSE; Start 03/13/19 at 16:30 Dextrose (D50w Syringe) 25 ml Q15M PRN IV DECREASED GLUCOSE; Start 03/13/19 at 16:30 Dextrose (D50w Syringe) 50 ml Q15M PRN IV DECREASED GLUCOSE; Start 03/13/19 at 16:30 Glucagon (Glucagen) 1 mg Q15M PRN IM DECREASED GLUCOSE; Start 03/13/19 at 16:30 Glucose (Glutose) 15 gm Q15M PRN BUCCAL DECREASED GLUCOSE; Start 03/13/19 at 16:30 Lorazepam (Ativan) 0.5 mg QID PRN GTB ANXIETY Last administered on 03/26/19at 15:20; Admin Dose 0.5 MG; Start 03/23/19 at 20:00 Acetaminophen (Tylenol Liquid) 650 mg Q4H PRN GTB MILD PAIN(1-3)OR ELEVATED TEMP Last administered on 03/27/19at 20:21; Admin Dose 650 MG; Start 03/23/19 at 20:00 Amlodipine Besylate (Norvasc) 5 mg BID GTB Last administered on 03/28/19 08:49; Admin Dose 5 MG; Start 03/26/19 at 21:00 Ascorbic Acid (Vitamin C) 500 mg DAILY GTB Last administered on 03/28/19 08:46; Admin Dose 500 MG; Start 03/27/19 at 09:00 Docusate Sodium (Colace Liquid Cup) 100 mg BID GTB Last administered on 03/28/19 08:46; Admin Dose 100 MG; Start 03/26/19 at 21:00 Folic Acid (Folic Acid) 1 mg DAILY GTB Last administered on 03/28/19 08:46; Admin Dose 1 MG; Start 03/27/19 at 09:00 Linagliptin (Tradjenta) 5 mg DAILY PO Last administered on 03/28/19 08:48; Admin Dose 5 MG; Start 03/27/19 at 09:00 Metoprolol Tartrate (Lopressor) 50 mg BID GTB Last administered on 03/28/19 08:46; Admin Dose 50 MG; Start 03/26/19 at 21:00 Atorvastatin Calcium (Lipitor) 40 mg HS GTB Last administered on 03/27/19 21:24; Admin Dose 40 MG; Start 03/26/19 at 21:00 PHYLICIA HOLCOMB NP March 28, 2019 14:12
[2019-03-28] MEDS: LORAZEPAM 0.5 MG TAB GTB PRN (14:45)
--- NOTE | 2019-03-28 15:26 | PN ---
DATE: 03/28/2019 SUBJECTIVE: The patient seen, transferred to the medical/surgical floor with 1:1 sitter off restrain ts. VITAL SIGNS: Temperature 97.8, pulse 60, respirations 16, blood pressure 125/68, saturation 95% on r oom air. GENERAL: No acute distress. The patient is frail, temporal wasting. CARDIOVASCULAR: S1, S2, regular rate. LUNGS: Clear. ABDOMEN: Soft. G-tube in place. EXTREMITIES: No clubbing, cyanosis, or edema. Left upper chest Perm-A-Cath. LABORATORY DATA: No new labs today, white count is 9.3, hemoglobin 9.3 yesterday, platelet count 235 . Last glucose of 167, 125. MEDICATIONS: 1. Vitamin C 500 mg daily. 2. Folic acid 1 mg daily. 3. Tradjenta 5 mg daily. 4. Norvasc 20 mg b.i.d. 5. Colace 100 b.i.d. 6. Lopressor 50 b.i.d. 7. Lipitor 40 at bedtime. 8. Ativan p.r.n. 9. Tylenol p.r.n. 10. Hypoglycemia protocol as directed. 11. DuoNeb every 4 hours. 12. Ferrous sulfate 300 b.i.d. 13. Zyprexa 2.5 daily. 14. Prevacid 30 mg b.i.d. 15. . 16. Lantus 4 units at bedtime. ASSESSMENT AND PLAN: This is an 83-year-old [place] female with history of end-stage renal disease, vascular dementia, hypertension, diabetes mellitus, anemia, presented with bacteremia, line sepsis, urinary tract infection, aspiration pneumonia. 1. Respiratory. Stable. Continue O2 support. Head elevation. 2. Cardiovascular. Blood thinners are on hold due to need for transfusion. 3. Blood pressure with the above meds are controlled. 4. Anemia. Continue Epogen, iron supplements. Transfuse p.r.n. Check hemoglobin and hematocrit pe riodically. 5. End-stage renal disease. Dialysis planned for today and every Thursday, Thursday and Thursday. 6. Infectious disease, off antibiotics. Finished a course for treatment for urinary tract infection and pneumonia. 7. Psychiatric disorder. Resume Zyprexa. Continue monitoring as the patient is in danger of fall. The patient with 1:1 sitter. 8. The patient is DNR with overall long-term prognosis, which is poor. 9. Diabetes mellitus, controlled with Lantus and Tradjenta. 10. certified wellness program manager to assist with placement. We will update from case management. We will follow. Dictated By: DYLON HULL/MADAN Conf#: [id number] DID#: [id number]
[2019-03-28] MEDS: EPOETIN ALFA-EPBX (ESRD) 4,000 UNIT/ML VIAL SC SCH (18:55)
[2019-03-28] MEDS: INSULIN GLARGINE [LANTus] (100 UNITS/ML) SYG SC SCH (20:50)
[2019-03-28] MEDS: ACCU-CHEK XX SCH ×2 (20:51→21:42)
[2019-03-29] VITALS (7 sets, daily range): BP systolic 81–160; BP diastolic 48–96; PULSE 79–108; RESP 16–18
[2019-03-29] MEDS: DOCUSATE SODIUM 10 MG/ML (10ML CUP) GTB SCH ×3 (00:41→20:31)
[2019-03-29] MEDS: FERROUS SULFATE 60 MG/ML 5ML CUP GTB SCH ×3 (00:41→20:31)
[2019-03-29] MEDS: AMLODIPINE 5 MG TAB GTB SCH ×3 (00:46→20:31)
[2019-03-29] MEDS: ATORVASTATIN 40 MG TAB GTB SCH ×2 (00:46→20:30)
[2019-03-29] MEDS: METOPROLOL 50 MG TAB GTB SCH ×3 (00:46→20:30)
[2019-03-29] MEDS: ALBUTEROL/IPRATROPIUM (NEB) 3 ML AMP HHN SCH ×6 (01:36→20:31)
[2019-03-29] MEDS: LANSOPRAZOLE 30 MG CAP GTB SCH ×2 (05:21→18:33)
[2019-03-29] MEDS: ACCU-CHEK XX SCH ×2 (09:00→21:00)
[2019-03-29] MEDS: LINAGLIPTIN 5 MG TABLET PO SCH (09:12)
[2019-03-29] MEDS: FOLIC ACID 1 MG TAB GTB SCH (09:12)
[2019-03-29] MEDS: ASCORBIC ACID 500 MG TAB GTB SCH (09:13)
[2019-03-29] MEDS: OLANZAPINE 2.5 MG TAB GTB SCH (09:13)
[2019-03-29] MEDS: LORAZEPAM 0.5 MG TAB GTB PRN ×2 (09:15→20:30)
--- NOTE | 2019-03-29 12:50 | CONS ---
Assessment/Plan Assessment/Plan Hospital Course (Demo Recall) All noted. No events, looks comfortable Indwelling: Left subclavian permacath, PEG Microbiology: Urine culture on admission grew Dominique glabrata, blood culture grew Enterococcus Chest x-ray on admission revealed no definite evidence of pneumonia or CHF Physical examination: This is a chronically ill-appearing wasted elderly woman who is in no distress. Head atraumatic normocephalic. Neck is supple. Chest rise symmetrical patient is mildly tachypneic with expiratory wheezes. Heart: S1-S2, tachycardic. Abdomen soft bowel sounds present. Extremities without cyanosis edema. Assessment: 1. S/p acute hypoxemia ==> combination of aspiration and fluid overload 2. Status post recurrent UTI and bacteremia 4. End-stage renal disease, hemodialysis dependent 5. Anemia 6. 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 Plan: Remains stable, off abx, continue present care, aspiration precautions Consultation Date/Type/Reason Admit Date/Time Feb 19, 2019 at 01:01 Initial Consult Date Type of Consult id Requesting Provider: JOSE RAUL ANDREWS MD Date/Time of Note DATE: 03/29/19 TIME: 12:50 Exam/Review of Systems Exam Vitals Vital Signs Date Temp Pulse Resp B/P (MAP) Pulse Ox O2 O2 Flow FiO2 Time Delivery Rate 03/29/19 72 18 21 08:58 03/29/19 98.8 157/68 99 Room Air 08:00 (97) Intake and Output 03/28/19 03/28/19 03/29/19 1515:00 23:00 07:00 OutputOutput Total 1500 ml BalanceBalance -1500 ml Results Result Diagram: 03/27/19 0533 03/27/19 0533 Results 24hrs Laboratory Tests Test 03/28/19 20:48 03/28/19 21:40 03/29/19 09:38 Bedside Glucose 141 125 196 Medications Medication Current Medications Insulin Glargine (Lantus) 4 units DAILY@2000 SC Last administered on 03/28/19at 20:50; Admin Dose 4 UNITS; Start 02/26/19 at 20:00 Epoetin Michael-epbx (Retacrit (Esrd)) 4,000 unit MoWeFr@1700 SC Last administered on 03/28/19at 18:55; Admin Dose 4,000 UNIT; Start 02/28/19 at 17:00 Olanzapine (Zyprexa) 2.5 mg DAILY GTB Last administered on 03/29/19at 09:13; Admin Dose 2.5 MG; Start 03/01/19 at 09:00 Lansoprazole (Prevacid) 30 mg BID@0600,1800 GTB Last administered on 03/29/19at 05:21; Admin Dose 30 MG; Start 02/28/19 at 18:00 Ferrous Sulfate (Feosol Liquid Cup) 300 mg BID GTB Last administered on 03/29/19at 09:13; Admin Dose 300 MG; Start 03/08/19 at 09:00 Albuterol/ Ipratropium (Duoneb) 3 ml Q4H RESP THERAPY HHN Last administered on 03/29/19at 08:58; Admin Dose 3 ML; Start 03/12/19 at 10:00 Albuterol/ Ipratropium (Duoneb) 3 ml Q2H RESP THERAPY PRN HHN SHORTNESS OF BREATH; Start 03/12/19 at 10:00 Miscellaneous Information 1 ea NOTE XX ; Start 03/13/19 at 16:30 Glucose (Glutose) 15 gm Q15M PRN PO DECREASED GLUCOSE; Start 03/13/19 at 16:30 Glucose (Glutose) 22.5 gm Q15M PRN PO DECREASED GLUCOSE; Start 03/13/19 at 16:30 Dextrose (D50w Syringe) 25 ml Q15M PRN IV DECREASED GLUCOSE; Start 03/13/19 at 16:30 Dextrose (D50w Syringe) 50 ml Q15M PRN IV DECREASED GLUCOSE; Start 03/13/19 at 16:30 Glucagon (Glucagen) 1 mg Q15M PRN IM DECREASED GLUCOSE; Start 03/13/19 at 16:30 Glucose (Glutose) 15 gm Q15M PRN BUCCAL DECREASED GLUCOSE; Start 03/13/19 at 16:30 Lorazepam (Ativan) 0.5 mg QID PRN GTB ANXIETY Last administered on 03/29/19at 09:15; Admin Dose 0.5 MG; Start 03/23/19 at 20:00 Acetaminophen (Tylenol Liquid) 650 mg Q4H PRN GTB MILD PAIN(1-3)OR ELEVATED TEMP Last administered on 03/27/19at 20:21; Admin Dose 650 MG; Start 03/23/19 at 20:00 Amlodipine Besylate (Norvasc) 5 mg BID GTB Last administered on 03/29/19 09:12; Admin Dose 5 MG; Start 03/26/19 at 21:00 Ascorbic Acid (Vitamin C) 500 mg DAILY GTB Last administered on 03/29/19 09:13; Admin Dose 500 MG; Start 03/27/19 at 09:00 Docusate Sodium (Colace Liquid Cup) 100 mg BID GTB Last administered on 03/29/19 09:13; Admin Dose 100 MG; Start 03/26/19 at 21:00 Folic Acid (Folic Acid) 1 mg DAILY GTB Last administered on 03/29/19 09:12; Admin Dose 1 MG; Start 03/27/19 at 09:00 Linagliptin (Tradjenta) 5 mg DAILY PO Last administered on 03/29/19 09:12; Admin Dose 5 MG; Start 03/27/19 at 09:00 Metoprolol Tartrate (Lopressor) 50 mg BID GTB Last administered on 03/29/19 09:15; Admin Dose 50 MG; Start 03/26/19 at 21:00 Atorvastatin Calcium (Lipitor) 40 mg HS GTB Last administered on 03/29/19 00:46; Admin Dose 40 MG; Start 03/26/19 at 21:00 Diagnostic Test (Pha) (Accu-Chek) 1 ea Q12 XX Last administered on 03/28/19 21:42; Admin Dose 1 EA; Start 03/28/19 at 20:00 PHYLICIA HOLCOMB NP March 29, 2019 12:50
--- NOTE | 2019-03-29 14:44 | PN ---
DATE: 03/29/2019 SUBJECTIVE: The patient was seen, appears to be comfortable with a sitter, off restraints. OBJECTIVE: VITAL SIGNS: Temperature 98.8, pulse 72, respirations 18, blood pressure 157/60, saturation 99% on r oom air. GENERAL: The patient is in no acute distress, responsive, awake, appears to be comfortable. HEENT: Pale. CARDIOVASCULAR: S1, S2. Regular rate. LUNGS: Clear. ABDOMEN: Soft. EXTREMITIES: No clubbing, cyanosis or edema. LABORATORY DATA: Done on 03/27/2019 showed white count 9.3, hemoglobin 9.3, hematocrit 30, platelet count of 235. Last glucose of 196, 125 and 141. MEDICATIONS: All reviewed which include: 1. Accu-Cheks. 2. Vitamin C. 3. Folic acid. 4. Tradjenta. 5. Norvasc. 6. Colace. 7. Lopressor. 8. Lipitor. 9. Ativan. 10. Tylenol. 11. Hypoglycemia protocol. 12. P.r.n. DuoNeb. 13. Ferrous sulfate. 14. Zyprexa. 15. Prevacid. 16. Procrit. 17. Lantus 4 units daily at night. ASSESSMENT AND PLAN: An 83-year-old [place] female with history of end-stage renal disease, vascula r dementia, hypertension, diabetes mellitus, anemia, who presented with bacteremia, line sepsis, urin familia tract infection/pneumonia. 1. Respiratory: Continue O2 support. Head elevation. 2. Cardiovascular: Blood pressure control with above meds. 3. Anemia. Continue Epogen, iron supplements. Transfuse p.r.n. Check H and H periodically. Off b lood thinners due to need for transfusion. 4. End-stage renal disease, dialysis every Thursday, Thursday and Thursday. Last dialysis yesterday. 5. Infectious disease: Off IV antibiotics. Finished course of treatment for urinary tract infectio n and pneumonia. 6. Psychiatric disorder. Resume Zyprexa. 7. The patient is DNR with overall poor long-term prognosis due to multiple comorbidities, bedridden state and dementia. 8. Diabetes mellitus, on Lantus and Tradjenta. Titrate it up as needed. 9. Dysphagia and moderate protein caloric closely. Continue G-tube feeding and head elevation. education manager is assisting with placement, awaiting update. We will follow. Dictated By: DYLON HULL/MADAN Conf#: [id number] DID#: [id number] CC: JOSE RAUL ANDREWS;*EndCC*
--- NOTE | 2019-03-29 15:57 | PN ---
Date/Time of Note Date/Time of Note DATE: 03/29/19 TIME: 15:56 Assessment/Plan VTE Prophylaxis Risk score (from Ns)>0 risk: 10 SCD applied (from Ns): Yes Pharmacological prophylaxis: NA/contraindicated Pharm contraindication: low risk/ambulating Lines/Catheters IV [facility] Type [facility]from [facility] Saline Lock Urinary Cath still in place: No Assessment/Plan Assessment/Plan . End-stage renal disease on hemodialysis. 2. Anemia of chronic disease 3. Urinary tract infection. 4. Hypertension. 5. Dementia. 6. Diabetes mellitus type II. 7. Diastolic heart failure. 8. Moderate protein energy malnutrition with cachexia. 9. Osteoarthritis. 10. GT status Assessment/Plan (Daily) -cw MWf HD , hd tmw -Perm cath is functional -C/w Epogen Result Diagram: 03/27/1953203/27/19532 Results 24hrs Laboratory Tests Test 03/28/19 20:48 03/28/19 21:40 03/29/19 09:38 Bedside Glucose 141 125 196 Subjective 24 Hr Interval Summary Free Text/Dictation no acute events Exam/Review of Systems Exam Vitals Vital Signs Date Temp Pulse Resp B/P (MAP) Pulse Ox O2 O2 Flow FiO2 Time Delivery Rate 03/29/19 98.1 80 18 144/60 100 Room Air 14:30 (88) 03/29/19 08:58 Intake and Output 03/28/19 03/28/19 03/29/19 1515:00 23:00 07:00 OutputOutput Total 1500 ml BalanceBalance -1500 ml Exam opens eyes follows commands no edema left permacath Results Results 24hrs Laboratory Tests Test 03/28/19 20:48 03/28/19 21:40 03/29/19 09:38 Bedside Glucose 141 125 196 Medications Medication Current Medications Insulin Glargine (Lantus) 4 units DAILY@2000 SC Last administered on 03/28/19at 20:50; Admin Dose 4 UNITS; Start 02/26/19 at 20:00 Epoetin Michael-epbx (Retacrit (Esrd)) 4,000 unit MoWeFr@1700 SC Last administered on 03/28/19at 18:55; Admin Dose 4,000 UNIT; Start 02/28/19 at 17:00 Olanzapine (Zyprexa) 2.5 mg DAILY GTB Last administered on 03/29/19 09:13; Admin Dose 2.5 MG; Start 03/01/19 at 09:00 Lansoprazole (Prevacid) 30 mg BID@0600,1800 GTB Last administered on 03/29/19 05:21; Admin Dose 30 MG; Start 02/28/19 at 18:00 Ferrous Sulfate (Feosol Liquid Cup) 300 mg BID GTB Last administered on 03/10 09:13; Admin Dose 300 MG; Start 03/08/19 at 09:00 Albuterol/ Ipratropium (Duoneb) 3 ml Q4H RESP THERAPY HHN Last administered on 03/29/19 08:58; Admin Dose 3 ML; Start 03/12/19 at 10:00 Albuterol/ Ipratropium (Duoneb) 3 ml Q2H RESP THERAPY PRN HHN SHORTNESS OF BREATH; Start 03/12/19 at 10:00 Miscellaneous Information 1 ea NOTE XX ; Start 03/13/19 at 16:30 Glucose (Glutose) 15 gm Q15M PRN PO DECREASED GLUCOSE; Start 03/13/19 at 16:30 Glucose (Glutose) 22.5 gm Q15M PRN PO DECREASED GLUCOSE; Start 03/13/19 at 16:30 Dextrose (D50w Syringe) 25 ml Q15M PRN IV DECREASED GLUCOSE; Start 03/13/19 at 16:30 Dextrose (D50w Syringe) 50 ml Q15M PRN IV DECREASED GLUCOSE; Start 03/13/19 at 16:30 Glucagon (Glucagen) 1 mg Q15M PRN IM DECREASED GLUCOSE; Start 03/13/19 at 16:30 Glucose (Glutose) 15 gm Q15M PRN BUCCAL DECREASED GLUCOSE; Start 03/13/19 at 16:30 Lorazepam (Ativan) 0.5 mg QID PRN GTB ANXIETY Last administered on 03/29/19at 09:15; Admin Dose 0.5 MG; Start 03/23/19 at 20:00 Acetaminophen (Tylenol Liquid) 650 mg Q4H PRN GTB MILD PAIN(1-3)OR ELEVATED TEMP Last administered on 03/27/19 20:21; Admin Dose 650 MG; Start 03/23/19 at 20:00 Amlodipine Besylate (Norvasc) 5 mg BID GTB Last administered on 03/29/19 09:12; Admin Dose 5 MG; Start 03/26/19 at 21:00 Ascorbic Acid (Vitamin C) 500 mg DAILY GTB Last administered on 03/29/19 09:13; Admin Dose 500 MG; Start 03/27/19 at 09:00 Docusate Sodium (Colace Liquid Cup) 100 mg BID GTB Last administered on 03/29/19 09:13; Admin Dose 100 MG; Start 03/26/19 at 21:00 Folic Acid (Folic Acid) 1 mg DAILY GTB Last administered on 03/29/19 09:12; Admin Dose 1 MG; Start 03/27/19 at 09:00 Linagliptin (Tradjenta) 5 mg DAILY PO Last administered on 03/29/19 09:12; Admin Dose 5 MG; Start 03/27/19 at 09:00 Metoprolol Tartrate (Lopressor) 50 mg BID GTB Last administered on 03/29/19 09:15; Admin Dose 50 MG; Start 03/26/19 at 21:00 Atorvastatin Calcium (Lipitor) 40 mg HS GTB Last administered on 03/29/19 00:46; Admin Dose 40 MG; Start 03/26/19 at 21:00 Diagnostic Test (Pha) (Accu-Chek) 1 ea Q12 XX Last administered on 03/28/19 21 :42; Admin Dose 1 EA; Start 03/28/19 at 20:00 JOSE RAUL ANDREWS MD March 29, 2019 15:57
[2019-03-29] MEDS: INSULIN GLARGINE [LANTus] (100 UNITS/ML) SYG SC SCH (20:44)
[2019-03-30] MEDS: ALBUTEROL/IPRATROPIUM (NEB) 3 ML AMP HHN SCH ×6 (01:20→20:44)
[2019-03-30 02:51] VITALS: BP 155/68; PULSE 87; RESP 18
[2019-03-30] MEDS: LANSOPRAZOLE 30 MG CAP GTB SCH ×2 (06:20→18:12)
[2019-03-30 07:14] VITALS: BP 137/63; PULSE 74; RESP 16
[2019-03-30] MEDS: FERROUS SULFATE 60 MG/ML 5ML CUP GTB SCH ×2 (08:33→20:48)
[2019-03-30] MEDS: DOCUSATE SODIUM 10 MG/ML (10ML CUP) GTB SCH ×2 (08:33→20:48)
[2019-03-30] MEDS: ASCORBIC ACID 500 MG TAB GTB SCH (08:33)
[2019-03-30] MEDS: METOPROLOL 50 MG TAB GTB SCH ×2 (08:33→21:00)
[2019-03-30] MEDS: OLANZAPINE 2.5 MG TAB GTB SCH (08:33)
[2019-03-30] MEDS: FOLIC ACID 1 MG TAB GTB SCH (08:34)
[2019-03-30] MEDS: ACCU-CHEK XX SCH ×2 (08:34→21:00)
[2019-03-30] MEDS: LINAGLIPTIN 5 MG TABLET PO SCH (08:34)
[2019-03-30] MEDS: AMLODIPINE 5 MG TAB GTB SCH ×2 (08:34→21:00)
--- NOTE | 2019-03-30 13:51 | CONS ---
Assessment/Plan Assessment/Plan Assessment/Plan (Daily) 1 End-stage renal disease on hemodialysis. 2. Anemia of chronic disease 3. Urinary tract infection. 4. Hypertension. 5. Dementia. 6. Diabetes mellitus type II. 7. Diastolic heart failure. 8. Moderate protein energy malnutrition with cachexia. 9. Osteoarthritis. 10. GT status Assessment/Plan (Daily) -cw MWf HD , hd today -Perm cath is functional -C/w Epogen Consultation Date/Type/Reason Admit Date/Time Feb 19, 2019 at 01:01 Initial Consult Date Requesting Provider: JOSE RAUL ANDREWS MD Date/Time of Note DATE: 03/30/19 TIME: 13:50 24 HR Interval Summary Free Text/Dictation Patient is awake alert answering some questions Exam/Review of Systems Exam Vitals Vital Signs Date Temp Pulse Resp B/P (MAP) Pulse Ox O2 O2 Flow FiO2 Time Delivery Rate 03/30/19 85 17 96 21 09:00 03/30/19 98.7 137/63 Room Air 07:14 (87) Intake and Output 03/29/19 03/29/19 03/30/19 1515:00 23:00 07:00 IntakeIntake Total 560 ml BalanceBalance 560 ml Exam opens eyes follows commands no edema left permacath Results Result Diagram: 03/27/19 0533 03/27/19 0533 Results 24hrs Laboratory Tests Test 03/29/19 20:40 03/30/19 08:31 Bedside Glucose 142 157 Medications Medication Current Medications Insulin Glargine (Lantus) 4 units DAILY@2000 SC Last administered on 03/29/19at 20:44; Admin Dose 4 UNITS; Start 02/26/19 at 20:00 Epoetin Michael-epbx (Retacrit (Esrd)) 4,000 unit MoWeFr@1700 SC Last administered on 03/28/19at 18:55; Admin Dose 4,000 UNIT; Start 02/28/19 at 17:00 Olanzapine (Zyprexa) 2.5 mg DAILY GTB Last administered on 03/30/19at 08:33; Admin Dose 2.5 MG; Start 03/01/19 at 09:00 Lansoprazole (Prevacid) 30 mg BID@0600,1800 GTB Last administered on 03/30/19at 06:20; Admin Dose 30 MG; Start 02/28/19 at 18:00 Ferrous Sulfate (Feosol Liquid Cup) 300 mg BID GTB Last administered on 03/30/19 08:33; Admin Dose 300 MG; Start 03/08/19 at 09:00 Albuterol/ Ipratropium (Duoneb) 3 ml Q4H RESP THERAPY HHN Last administered on 03/30/19at 08:53; Admin Dose 3 ML; Start 03/12/19 at 10:00 Albuterol/ Ipratropium (Duoneb) 3 ml Q2H RESP THERAPY PRN HHN SHORTNESS OF BREATH; Start 03/12/19 at 10:00 Miscellaneous Information 1 ea NOTE XX ; Start 03/13/19 at 16:30 Glucose (Glutose) 15 gm Q15M PRN PO DECREASED GLUCOSE; Start 03/13/19 at 16:30 Glucose (Glutose) 22.5 gm Q15M PRN PO DECREASED GLUCOSE; Start 03/13/19 at 16:30 Dextrose (D50w Syringe) 25 ml Q15M PRN IV DECREASED GLUCOSE; Start 03/13/19 at 16:30 Dextrose (D50w Syringe) 50 ml Q15M PRN IV DECREASED GLUCOSE; Start 03/13/19 at 16:30 Glucagon (Glucagen) 1 mg Q15M PRN IM DECREASED GLUCOSE; Start 03/13/19 at 16:30 Glucose (Glutose) 15 gm Q15M PRN BUCCAL DECREASED GLUCOSE; Start 03/13/19 at 16:30 Lorazepam (Ativan) 0.5 mg QID PRN GTB ANXIETY Last administered on 03/29/19at 20:30; Admin Dose 0.5 MG; Start 03/23/19 at 20:00 Acetaminophen (Tylenol Liquid) 650 mg Q4H PRN GTB MILD PAIN(1-3)OR ELEVATED TEMP Last administered on 03/27/19at 20:21; Admin Dose 650 MG; Start 03/23/19 at 20:00 Amlodipine Besylate (Norvasc) 5 mg BID GTB Last administered on 03/30/19at 08:34; Admin Dose 5 MG; Start 03/26/19 at 21:00 Ascorbic Acid (Vitamin C) 500 mg DAILY GTB Last administered on 03/30/19at 08:33; Admin Dose 500 MG; Start 03/27/19 at 09:00 Docusate Sodium (Colace Liquid Cup) 100 mg BID GTB Last administered on 03/30/19 08:33; Admin Dose 100 MG; Start 03/26/19 at 21:00 Folic Acid (Folic Acid) 1 mg DAILY GTB Last administered on 03/30/19 08:34; Admin Dose 1 MG; Start 03/27/19 at 09:00 Linagliptin (Tradjenta) 5 mg DAILY PO Last administered on 03/30/19 08:34; Admin Dose 5 MG; Start 03/27/19 at 09:00 Metoprolol Tartrate (Lopressor) 50 mg BID GTB Last administered on 03/30/19 08:33; Admin Dose 50 MG; Start 03/26/19 at 21:00 Atorvastatin Calcium (Lipitor) 40 mg HS GTB Last administered on 03/29/19 20:30; Admin Dose 40 MG; Start 03/26/19 at 21:00 Diagnostic Test (Pha) (Accu-Chek) 1 ea Q12 XX Last administered on 03/28/19 21:42; Admin Dose 1 EA; Start 03/28/19 at 20:00 JOSE RAUL ANDREWS MD March 30, 2019 13:51
[2019-03-30 14:20] VITALS: BP 144/62; PULSE 78; RESP 18
[2019-03-30] MEDS: EPOETIN ALFA-EPBX (ESRD) 4,000 UNIT/ML VIAL SC SCH (18:11)
--- NOTE | 2019-03-30 19:39 | PN ---
DATE: 03/30/2019 SUBJECTIVE: The patient was seen, comfortable, alert, in no acute events, on dialysis today. OBJECTIVE: VITAL SIGNS: Temperature 98.4, pulse 78, respirations 18, blood pressure 144/62, saturation 100% on room air. GENERAL: Otherwise, the patient is frail, cachectic, pale. CARDIOVASCULAR: S1, S2. Regular rate. LUNGS: Clear. ABDOMEN: Soft. G-tube in place. EXTREMITIES: No clubbing, cyanosis or edema. LABORATORY DATA: Dated 03/27/2019 reviewed. White count was 9.3, hemoglobin 9.3, platelet count of 235. Last glucose level of 157, 142, 196. MEDICATIONS: 1. Accu-Cheks as directed. 2. Vitamin C 500 mg daily. 3. Folic acid 1 mg daily. 4. Tradjenta 5 mg daily. 5. Norvasc 5 mg b.i.d. 6. Colace 100 b.i.d. 7. Lopressor 50 b.i.d. 8. Lipitor 40 at bedtime. 9. Ativan p.r.n. 10. Tylenol p.r.n. 11. Hypoglycemia protocol p.r.n. 12. DuoNeb as directed. 13. Ferrous sulfate 300 b.i.d. 14. Zyprexa 2.5 daily. 15. Prevacid 30 mg twice a day. 16. Epogen as directed. 17. Lantus 4 units at night. ASSESSMENT AND PLAN: This is an 83-year-old female with history of end-stage renal disease, vascular dementia, hypertension, diabetes mellitus, anemia, presented with bacteremia, line sepsis, urinary t ract infection and pneumonia. 1. Respiratory: Continue O2 support and elevation, off oxygen now. 2. Cardiovascular: Vital signs are stable with the above meds. Off blood thinners due to the need for transfusions frequently. 3. Anemia, on Epogen and iron supplements. Transfuse p.r.n. Monitor H and H periodically. 4. End-stage renal disease. Dialysis is planned for today as well as Thursday, Thursday and Thursday. Monitor electrolytes. 5. Infectious disease: Off antibiotics, status post treatment for urinary tract infection and pneum onia. 6. Psychiatric disorder: On Zyprexa. Mood appears to be overall stable. Still high risk of fall. The patient had a sitter. 7. The patient is DNR with poor long-term prognosis due to comorbidities. 8. Diabetes mellitus. Continue Lantus and Tradjenta. 9. Dysphagia and G-tube feeding at 30 mL an hour, tolerating it well. Continue head elevation. tary to follow. 10. Awaiting [facility] at the correction facility. production control manager is assisting. We will follow. Dictated By: DYLON HULL/MADAN Conf#: [id number] DID#: [id number] CC: JOSE RAUL ANDREWS;*EndCC*
[2019-03-30 19:54] VITALS: BP 152/70; PULSE 86; RESP 19
[2019-03-30] MEDS: ATORVASTATIN 40 MG TAB GTB SCH (20:48)
[2019-03-30] MEDS: LORAZEPAM 0.5 MG TAB GTB PRN (20:48)
[2019-03-31] VITALS (15 sets, daily range): BP systolic 79–151; BP diastolic 38–77; PULSE 80–99; RESP 18
[2019-03-31] MEDS: ALBUTEROL/IPRATROPIUM (NEB) 3 ML AMP HHN SCH ×6 (01:00→20:11)
[2019-03-31] MEDS: LANSOPRAZOLE 30 MG CAP GTB SCH ×2 (05:37→17:41)
[2019-03-31] MEDS: OLANZAPINE 2.5 MG TAB GTB SCH (08:57)
[2019-03-31] MEDS: LINAGLIPTIN 5 MG TABLET PO SCH (08:57)
[2019-03-31] MEDS: DOCUSATE SODIUM 10 MG/ML (10ML CUP) GTB SCH ×2 (08:57→20:53)
[2019-03-31] MEDS: FERROUS SULFATE 60 MG/ML 5ML CUP GTB SCH ×2 (08:57→20:53)
[2019-03-31] MEDS: ACCU-CHEK XX SCH ×2 (08:58→20:52)
[2019-03-31] MEDS: ASCORBIC ACID 500 MG TAB GTB SCH (08:58)
[2019-03-31] MEDS: METOPROLOL 50 MG TAB GTB SCH ×2 (08:58→20:54)
[2019-03-31] MEDS: AMLODIPINE 5 MG TAB GTB SCH ×2 (08:58→20:54)
[2019-03-31] MEDS: FOLIC ACID 1 MG TAB GTB SCH (08:58)
--- NOTE | 2019-03-31 13:54 | CONS ---
Assessment/Plan Assessment/Plan Hospital Course (Demo Recall) 1. End-stage renal disease on hemodialysis. 2. Anemia of chronic disease 3. Urinary tract infection. 4. Hypertension. 5. Dementia. 6. Diabetes mellitus type II. 7. Diastolic heart failure. 8. Moderate protein energy malnutrition with cachexia. 9. Osteoarthritis. 10. GT status Assessment/Plan (Daily) -c/w HD -nephrotoxic titrate -c/e Epogen Consultation Date/Type/Reason Admit Date/Time Feb 19, 2019 at 01:01 Initial Consult Date 02/19/2019 Type of Consult nephrology Requesting Provider: JOSE RAUL ANDREWS MD Date/Time of Note DATE: 03/31/19 TIME: 13:52 24 HR Interval Summary Constitutional: disoriented Exam/Review of Systems Exam Vitals Vital Signs Date Temp Pulse Resp B/P (MAP) Pulse Ox O2 O2 Flow FiO2 Time Delivery Rate 03/31/19 76 17 95 21 09:59 03/31/19 98.0 136/63 Room Air 07:00 (87) Intake and Output 03/30/19 03/30/19 03/31/19 1515:00 23:00 07:00 IntakeIntake Total 460 ml BalanceBalance 460 ml Exam Left chest Perm cath Constitutional: alert, frail Eyes: nl conjunctiva Neck: supple Respiratory: diminished breath sounds Gastrointestinal: soft, other (GT) Results Result Diagram: 03/27/19 0533 03/27/19 0533 Results 24hrs Laboratory Tests Test 03/30/19 20:46 03/31/19 08:56 Bedside Glucose 141 195 Medications Medication Current Medications Epoetin Michael-epbx (Retacrit (Esrd)) 4,000 unit MoWeFr@1700 SC Last administered on 03/30/19at 18:11; Admin Dose 4,000 UNIT; Start 02/28/19 at 17:00 Olanzapine (Zyprexa) 2.5 mg DAILY GTB Last administered on 03/31/19at 08:57; Admin Dose 2.5 MG; Start 03/01/19 at 09:00 Lansoprazole (Prevacid) 30 mg BID@0600,1800 GTB Last administered on 03/31/19at 05:37; Admin Dose 30 MG; Start 02/28/19 at 18:00 Ferrous Sulfate (Feosol Liquid Cup) 300 mg BID GTB Last administered on 03/31/19 08:57; Admin Dose 300 MG; Start 03/08/19 at 09:00 Albuterol/ Ipratropium (Duoneb) 3 ml Q4H RESP THERAPY HHN Last administered on 03/31/19 09:59; Admin Dose 3 ML; Start 03/12/19 at 10:00 Albuterol/ Ipratropium (Duoneb) 3 ml Q2H RESP THERAPY PRN HHN SHORTNESS OF BREATH; Start 03/12/19 at 10:00 Miscellaneous Information 1 ea NOTE XX ; Start 03/13/19 at 16:30 Glucose (Glutose) 15 gm Q15M PRN PO DECREASED GLUCOSE; Start 03/13/19 at 16:30 Glucose (Glutose) 22.5 gm Q15M PRN PO DECREASED GLUCOSE; Start 03/13/19 at 16:30 Dextrose (D50w Syringe) 25 ml Q15M PRN IV DECREASED GLUCOSE; Start 03/13/19 at 16:30 Dextrose (D50w Syringe) 50 ml Q15M PRN IV DECREASED GLUCOSE; Start 03/13/19 at 16:30 Glucagon (Glucagen) 1 mg Q15M PRN IM DECREASED GLUCOSE; Start 03/13/19 at 16:30 Glucose (Glutose) 15 gm Q15M PRN BUCCAL DECREASED GLUCOSE; Start 03/13/19 at 16:30 Lorazepam (Ativan) 0.5 mg QID PRN GTB ANXIETY Last administered on 03/30/19at 20:48; Admin Dose 0.5 MG; Start 03/23/19 at 20:00 Acetaminophen (Tylenol Liquid) 650 mg Q4H PRN GTB MILD PAIN(1-3)OR ELEVATED TEMP Last administered on 03/27/19 20:21; Admin Dose 650 MG; Start 03/23/19 at 20:00 Amlodipine Besylate (Norvasc) 5 mg BID GTB Last administered on 03/31/19 08:58; Admin Dose 5 MG; Start 03/26/19 at 21:00 Ascorbic Acid (Vitamin C) 500 mg DAILY GTB Last administered on 03/31/19 08:58; Admin Dose 500 MG; Start 03/27/19 at 09:00 Docusate Sodium (Colace Liquid Cup) 100 mg BID GTB Last administered on 03/31/19 08:57; Admin Dose 100 MG; Start 03/26/19 at 21:00 Folic Acid (Folic Acid) 1 mg DAILY GTB Last administered on 03/31/19 08:58; Admin Dose 1 MG; Start 03/27/19 at 09:00 Linagliptin (Tradjenta) 5 mg DAILY PO Last administered on 03/31/19 08:57; Admin Dose 5 MG; Start 03/27/19 at 09:00 Metoprolol Tartrate (Lopressor) 50 mg BID GTB Last administered on 03/31/19 08:58; Admin Dose 50 MG; Start 03/26/19 at 21:00 Atorvastatin Calcium (Lipitor) 40 mg HS GTB Last administered on 03/30/19 20:48; Admin Dose 40 MG; Start 03/26/19 at 21:00 Diagnostic Test (Pha) (Accu-Chek) 1 ea Q12 XX Last administered on 03/31/19 08:58; Admin Dose 1 EA; Start 03/28/19 at 20:00 FLAVIO CLAYTON March 31, 2019 13:54
--- NOTE | 2019-03-31 15:12 | CONS ---
Assessment/Plan Assessment/Plan Hospital Course (Demo Recall) All noted. No events, looks comfortable Indwelling: Left subclavian permacath, PEG Microbiology: Urine culture on admission grew Dominique glabrata, blood culture grew Enterococcus Chest x-ray on admission revealed no definite evidence of pneumonia or CHF Physical examination: This is a chronically ill-appearing wasted elderly woman who is in no distress. Head atraumatic normocephalic. Neck is supple. Chest rise symmetrical patient is mildly tachypneic with expiratory wheezes. Heart: S1-S2, tachycardic. Abdomen soft bowel sounds present. Extremities without cyanosis edema. Assessment: 1. S/p acute hypoxemia ==> combination of aspiration and fluid overload 2. Status post recurrent UTI and bacteremia 4. End-stage renal disease, hemodialysis dependent 5. Anemia 6. 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 Plan: Remains stable, off abx, continue present care, aspiration precautions Consultation Date/Type/Reason Admit Date/Time Feb 19, 2019 at 01:01 Initial Consult Date Type of Consult id Requesting Provider: JOSE RAUL ANDREWS MD Date/Time of Note DATE: 03/31/19 TIME: 15:11 Exam/Review of Systems Exam Vitals Vital Signs Date Temp Pulse Resp B/P (MAP) Pulse Ox O2 O2 Flow FiO2 Time Delivery Rate 03/31/19 89 18 132/54 Room Air 14:15 (80) 03/31/19 95 21 09:59 03/31/19 98.0 07:00 Intake and Output 03/30/19 03/30/19 03/31/19 1515:00 23:00 07:00 IntakeIntake Total 460 ml BalanceBalance 460 ml Results Result Diagram: 03/27/19 0533 03/27/19 0533 Results 24hrs Laboratory Tests Test 03/30/19 20:46 03/31/19 08:56 Bedside Glucose 141 195 Medications Medication Current Medications Epoetin Michael-epbx (Retacrit (Esrd)) 4,000 unit MoWeFr@1700 SC Last administered on 03/30/19at 18:11; Admin Dose 4,000 UNIT; Start 02/28/19 at 17:00 Olanzapine (Zyprexa) 2.5 mg DAILY GTB Last administered on 03/31/19at 08:57; Admin Dose 2.5 MG; Start 03/01/19 at 09:00 Lansoprazole (Prevacid) 30 mg BID@0600,1800 GTB Last administered on 03/31/19 05:37; Admin Dose 30 MG; Start 02/28/19 at 18:00 Ferrous Sulfate (Feosol Liquid Cup) 300 mg BID GTB Last administered on 03/31/19 08:57; Admin Dose 300 MG; Start 03/08/19 at 09:00 Albuterol/ Ipratropium (Duoneb) 3 ml Q4H RESP THERAPY HHN Last administered on 03/31/19 09:59; Admin Dose 3 ML; Start 03/12/19 at 10:00 Albuterol/ Ipratropium (Duoneb) 3 ml Q2H RESP THERAPY PRN HHN SHORTNESS OF BREATH; Start 03/12/19 at 10:00 Miscellaneous Information 1 ea NOTE XX ; Start 03/13/19 at 16:30 Glucose (Glutose) 15 gm Q15M PRN PO DECREASED GLUCOSE; Start 03/13/19 at 16:30 Glucose (Glutose) 22.5 gm Q15M PRN PO DECREASED GLUCOSE; Start 03/13/19 at 16:30 Dextrose (D50w Syringe) 25 ml Q15M PRN IV DECREASED GLUCOSE; Start 03/13/19 at 16:30 Dextrose (D50w Syringe) 50 ml Q15M PRN IV DECREASED GLUCOSE; Start 03/13/19 at 16:30 Glucagon (Glucagen) 1 mg Q15M PRN IM DECREASED GLUCOSE; Start 03/13/19 at 16:30 Glucose (Glutose) 15 gm Q15M PRN BUCCAL DECREASED GLUCOSE; Start 03/13/19 at 16:30 Lorazepam (Ativan) 0.5 mg QID PRN GTB ANXIETY Last administered on 03/30/19at 20:48; Admin Dose 0.5 MG; Start 03/23/19 at 20:00 Acetaminophen (Tylenol Liquid) 650 mg Q4H PRN GTB MILD PAIN(1-3)OR ELEVATED TEMP Last administered on 03/27/19at 20:21; Admin Dose 650 MG; Start 03/23/19 at 20:00 Amlodipine Besylate (Norvasc) 5 mg BID GTB Last administered on 03/31/19at 08:58; Admin Dose 5 MG; Start 03/26/19 at 21:00 Ascorbic Acid (Vitamin C) 500 mg DAILY GTB Last administered on 03/31/19 08:58; Admin Dose 500 MG; Start 03/27/19 at 09:00 Docusate Sodium (Colace Liquid Cup) 100 mg BID GTB Last administered on 03/31/19 08:57; Admin Dose 100 MG; Start 03/26/19 at 21:00 Folic Acid (Folic Acid) 1 mg DAILY GTB Last administered on 03/31/19 08:58; Admin Dose 1 MG; Start 03/27/19 at 09:00 Linagliptin (Tradjenta) 5 mg DAILY PO Last administered on 03/31/19 08:57; Admin Dose 5 MG; Start 03/27/19 at 09:00 Metoprolol Tartrate (Lopressor) 50 mg BID GTB Last administered on 03/31/19 08:58; Admin Dose 50 MG; Start 03/26/19 at 21:00 Atorvastatin Calcium (Lipitor) 40 mg HS GTB Last administered on 03/30/19 20:48; Admin Dose 40 MG; Start 03/26/19 at 21:00 Diagnostic Test (Pha) (Accu-Chek) 1 ea Q12 XX Last administered on 03/31/19 08:58; Admin Dose 1 EA; Start 03/28/19 at 20:00 PHYLICIA HOLCOMB NP March 31, 2019 15:12
--- NOTE | 2019-03-31 17:27 | PN ---
DATE: 03/31/2019 SUBJECTIVE: The patient was seen, appears to be comfortable, currently being dialyzed. PHYSICAL EXAMINATION: VITAL SIGNS: Temperature 98, pulse 76, respiratory rate 18, blood pressure , saturation 95% on room air. GENERAL: In no acute distress. HEENT: Normocephalic, atraumatic. Pale, frail. CARDIOVASCULAR: S1, S2. Regular rate. LUNGS: Clear. ABDOMEN: Soft. G-tube in place. EXTREMITIES: No clubbing, cyanosis or edema. LABORATORY DATA: White count is 9.2, hemoglobin 9.3, hematocrit 30, platelets 235, that was on 03/27. Last glucose of 190, 141, 157. CURRENT MEDICATIONS: Include: 1. Accu-Chek before meals and at bedtime. 2. Vitamin C 500 mg daily. 3. Folic acid 1 mg daily. 4. Tradjenta 5 mg daily. 5. Norvasc 5 mg b.i.d. 6. Colace 100 b.i.d. 7. Lopressor 50 b.i.d. 8. Lipitor 40 at bedtime. 9. Ativan p.r.n. 10. Tylenol p.r.n. 11. Hypoglycemia protocol as directed. 12. Breathing treatment every 4 hours and p.r.n. 13. Ferrous sulfate 300 b.i.d. 14. Zyprexa 2.5 daily. 15. Prevacid b.i.d. 30 mg. 16. Epogen 4000 every Thursday, Thursday and Thursday. ASSESSMENT AND PLAN: This is an 83-year-old female with history of end-stage renal disease, vascular dementia, hypertension, diabetes mellitus, anemia, presented with bacteremia, line sepsis, urinary t ract infection and pneumonia. 1. Respiratory: O2 support as needed. Keep head elevated. 2. Cardiovascular: Vitals are stable with the above meds. Off blood thinners due to need for trans fusion. Questionable occult blood bleeding. 3. Anemia. Continue iron supplements and Epogen. Transfuse p.r.n. Check H and H periodically. 4. End-stage renal disease, currently being dialyzed. 5. Infectious disease, off antibiotics, status post treatment for urinary tract infection, pneumonia and bacteremia. 6. Psychiatric disorder. Remains on Zyprexa. Mood appears to be stable. 7. DNR with poor long-term prognosis due to her comorbidities. 8. Diabetes mellitus. Continue Tradjenta and Lantus 4 units. 9. Dysphagia with malnutrition. Continue G-tube feeding at 30 mL an hour. Dietary to follow. 10. search engine optimization manager to assist with placement. Dictated By: DYLON HULL/MADAN Conf#: [id number] DID#: [id number] CC: JOSER AUL ANDREWS;*EndCC*
[2019-03-31] MEDS: ATORVASTATIN 40 MG TAB GTB SCH (20:53)
[2019-04-01] MEDS: LORAZEPAM 0.5 MG TAB GTB PRN (00:47)
[2019-04-01] MEDS: ALBUTEROL/IPRATROPIUM (NEB) 3 ML AMP HHN SCH ×6 (01:49→21:10)
[2019-04-01 02:40] VITALS: BP 141/65; PULSE 81; RESP 18
[2019-04-01] MEDS: LANSOPRAZOLE 30 MG CAP GTB SCH ×2 (05:19→17:56)
[2019-04-01 07:46] VITALS: BP 161/71; PULSE 76; RESP 18
[2019-04-01] MEDS: ACCU-CHEK XX SCH ×2 (09:00→21:00)
[2019-04-01] MEDS: DOCUSATE SODIUM 10 MG/ML (10ML CUP) GTB SCH ×2 (09:14→21:30)
[2019-04-01] MEDS: FERROUS SULFATE 60 MG/ML 5ML CUP GTB SCH ×2 (09:14→21:30)
[2019-04-01] MEDS: METOPROLOL 50 MG TAB GTB SCH ×2 (09:15→21:31)
[2019-04-01] MEDS: OLANZAPINE 2.5 MG TAB GTB SCH (09:15)
[2019-04-01] MEDS: FOLIC ACID 1 MG TAB GTB SCH (09:15)
[2019-04-01] MEDS: AMLODIPINE 5 MG TAB GTB SCH ×2 (09:15→21:31)
[2019-04-01] MEDS: ASCORBIC ACID 500 MG TAB GTB SCH (09:15)
[2019-04-01] MEDS: LINAGLIPTIN 5 MG TABLET PO SCH (09:18)
--- NOTE | 2019-04-01 11:39 | CONS ---
Assessment/Plan Assessment/Plan Hospital Course (Demo Recall) 1. End-stage renal disease on hemodialysis. 2. Anemia of chronic disease 3. Urinary tract infection. 4. Hypertension. 5. Dementia. 6. Diabetes mellitus type II. 7. Diastolic heart failure. 8. Moderate protein energy malnutrition with cachexia. 9. Osteoarthritis. 10. GT status Assessment/Plan (Daily) -c/w HD -avoid nephrotoxic drugs -c/w Epogen Consultation Date/Type/Reason Admit Date/Time Feb 19, 2019 at 01:01 Initial Consult Date 02/19/2019 Type of Consult nephrology Requesting Provider: JOSE RAUL ANDREWS MD Date/Time of Note DATE: 04/01/19 TIME: 11:38 24 HR Interval Summary Free Text/Dictation sleeping Exam/Review of Systems Exam Vitals Vital Signs Date Temp Pulse Resp B/P (MAP) Pulse Ox O2 O2 Flow FiO2 Time Delivery Rate 04/01/19 76 17 98 21 08:12 04/01/19 97.9 161/71 07:46 (101) 03/31/19 Room Air 16:43 Intake and Output 03/31/19 03/31/19 04/01/19 1515:00 23:00 07:00 OutputOutput Total 200 ml 1200 ml BalanceBalance -200 ml -1200 ml Exam sleeping with raising chest Head: normocephalic Neck: supple Respiratory: clear to auscultation Cardiovascular: regular rate and rhythm Gastrointestinal: soft, other (G tube) Results Result Diagram: 04/01/19 0536 04/01/19 0536 Results 24hrs Laboratory Tests Test 03/31/19 20:51 04/01/19 05:36 04/01/19 09:18 Bedside Glucose 127 161 White Blood Count 7.7 Red Blood Count 3.50 L Hemoglobin 9.2 L Hematocrit 29.3 L Mean Corpuscular Volume 83.7 Mean Corpuscular Hemoglobin 26.3 L Mean Corpuscular Hemoglobin Concent 31.4 L Red Cell Distribution Width 15.9 H Platelet Count 247 Mean Platelet Volume 12.2 H Immature Granulocytes % 0.800 H Neutrophils % 68.0 Lymphocytes % 9.9 L Monocytes % 12.4 H Eosinophils % 8.6 H Basophils % 0.3 Nucleated Red Blood Cells % 0.3 H Immature Granulocytes # 0.060 H Neutrophils # 5.2 Lymphocytes # 0.8 Monocytes # 1.0 H Eosinophils # 0.7 H Basophils # 0.0 Nucleated Red Blood Cells # 0.0 Sodium Level 135 Potassium Level 4.0 Chloride Level 98 Carbon Dioxide Level 31 Anion Gap 6 Blood Urea Nitrogen 49 H Creatinine 1.40 H Est Glomerular Filtrat Rate mL/min Glucose Level 162 Calcium Level 8.6 Phosphorus Level 2.9 Magnesium Level 2.3 Medications Medication Current Medications Epoetin Michael-epbx (Retacrit (Esrd)) 4,000 unit MoWeFr@1700 SC Last administered on 03/30/19at 18:11; Admin Dose 4,000 UNIT; Start 02/28/19 at 17:00 Olanzapine (Zyprexa) 2.5 mg DAILY GTB Last administered on 04/01/19at 09:15; Admin Dose 2.5 MG; Start 03/01/19 at 09:00 Lansoprazole (Prevacid) 30 mg BID@0600,1800 GTB Last administered on 04/01/19at 05:19; Admin Dose 30 MG; Start 02/28/19 at 18:00 Ferrous Sulfate (Feosol Liquid Cup) 300 mg BID GTB Last administered on 04/01/19 at 09:14; Admin Dose 300 MG; Start 03/08/19 at 09:00 Albuterol/ Ipratropium (Duoneb) 3 ml Q4H RESP THERAPY HHN Last administered on 04/01/19at 08:12; Admin Dose 3 ML; Start 03/12/19 at 10:00 Albuterol/ Ipratropium (Duoneb) 3 ml Q2H RESP THERAPY PRN HHN SHORTNESS OF BREATH; Start 03/12/19 at 10:00 Miscellaneous Information 1 ea NOTE XX ; Start 03/13/19 at 16:30 Glucose (Glutose) 15 gm Q15M PRN PO DECREASED GLUCOSE; Start 03/13/19 at 16:30 Glucose (Glutose) 22.5 gm Q15M PRN PO DECREASED GLUCOSE; Start 03/13/19 at 16:30 Dextrose (D50w Syringe) 25 ml Q15M PRN IV DECREASED GLUCOSE; Start 03/13/19 at 16:30 Dextrose (D50w Syringe) 50 ml Q15M PRN IV DECREASED GLUCOSE; Start 03/13/19 at 16:30 Glucagon (Glucagen) 1 mg Q15M PRN IM DECREASED GLUCOSE; Start 03/13/19 at 16:30 Glucose (Glutose) 15 gm Q15M PRN BUCCAL DECREASED GLUCOSE; Start 03/13/19 at 16:30 Lorazepam (Ativan) 0.5 mg QID PRN GTB ANXIETY Last administered on 04/01/19 00:47; Admin Dose 0.5 MG; Start 03/23/19 at 20:00 Acetaminophen (Tylenol Liquid) 650 mg Q4H PRN GTB MILD PAIN(1-3)OR ELEVATED TEMP Last administered on 03/27/19 20:21; Admin Dose 650 MG; Start 03/23/19 at 20:00 Amlodipine Besylate (Norvasc) 5 mg BID GTB Last administered on 04/01/19 09:15; Admin Dose 5 MG; Start 03/26/19 at 21:00 Ascorbic Acid (Vitamin C) 500 mg DAILY GTB Last administered on 04/01/19 09:15; Admin Dose 500 MG; Start 03/27/19 at 09:00 Docusate Sodium (Colace Liquid Cup) 100 mg BID GTB Last administered on 04/01/19 09:14; Admin Dose 100 MG; Start 03/26/19 at 21:00 Folic Acid (Folic Acid) 1 mg DAILY GTB Last administered on 04/01/19 09:15; Admin Dose 1 MG; Start 03/27/19 at 09:00 Linagliptin (Tradjenta) 5 mg DAILY PO Last administered on 04/01/19 09:18; Admin Dose 5 MG; Start 03/27/19 at 09:00 Metoprolol Tartrate (Lopressor) 50 mg BID GTB Last administered on 04/01/19 09:15; Admin Dose 50 MG; Start 03/26/19 at 21:00 Atorvastatin Calcium (Lipitor) 40 mg HS GTB Last administered on 03/31/19 20:53; Admin Dose 40 MG; Start 03/26/19 at 21:00 Diagnostic Test (Pha) (Accu-Chek) 1 ea Q12 XX Last administered on 03/31/19 08:58; Admin Dose 1 EA; Start 03/28/19 at 20:00 FLAVIO CLAYTON April 01, 2019 11:39
[2019-04-01 12:53] VITALS: BP 152/63; PULSE 76; RESP 18
--- NOTE | 2019-04-01 16:13 | PN ---
DATE: 04/01/2019 SUBJECTIVE: The patient was seen status post dialysis yesterday. Currently, appears to be comfortab le in no complaints. OBJECTIVE: VITAL SIGNS: Temperature 97.9, pulse 76, respirations 18, blood pressure 152/63, saturation 100% on room air. GENERAL: Normocephalic, atraumatic. HEENT: Pale. CARDIOVASCULAR: S1, S2. Regular rate. LUNGS: Clear. ABDOMEN: Soft. G-tube in place. EXTREMITIES: No clubbing, cyanosis or edema. Some scattered skin hematoma. LABORATORY DATA: White count 7.7, hemoglobin 9.2, hematocrit 29, platelet count of 247. This was to day. Chemistry: Sodium 135, potassium 4.0, chloride 98, bicarbonate 31, BUN is 49, creatinine 1.4, glucose 162. No recent cultures done. MEDICATIONS: All reviewed, include: 1. Accu-Cheks. 2. Vitamin C. 3. Folic acid. 4. Tradjenta. 5. Norvasc. 6. Colace. 7. Lopressor. 8. Lipitor. 9. Ativan. 10. Tylenol. 11. Hypoglycemia protocol. 11. Ferrous sulfate. 12. Zyprexa. 13. Prevacid. 14. Epogen. ASSESSMENT AND PLAN: This is an 83-year-old female with end-stage renal disease, vascular dementia, hypertension, diabetes mellitus, anemia, presented with bacteremia, line sepsis, urinary tract infect ion and pneumonia. 1. Respiratory: Continue O2 support as needed. Head elevation about aspiration. 2. Cardiovascular: Blood pressure is slightly elevated. Observe. Titrate medication up as needed. Blood thinners are on hold due to questionable occult bleeding requiring transfusion. 3. Anemia. Continue iron supplement and Epogen. Monitor H and H periodically. 4. End-stage renal disease. Last dialysis yesterday. 5. Infectious disease: Off antibiotics, status post treated for urinary tract infection, bacteremia and pneumonia. Recent chest x-ray showed improvement. Now off antibiotics, doing well. 6. Psychiatric disorder. Continue Zyprexa. Monitor mood. 7. The patient is DNR with long-term prognosis, which is poor. 8. Diabetes mellitus, on Tradjenta and Lantus 4 units at night. Accu-Cheks in the 100s. Continue t he same. 9. Dysphagia and malnutrition. Continue G-tube feeding at 30 mL an hour, tolerating it well. 10. project manager finance is assisting with placement. We will follow. Dictated By: DYLON HULL/MADAN Conf#: [id number] DID#: [id number] CC: JOSE RAUL ANDREWS;*EndCC*
[2019-04-01] MEDS: EPOETIN ALFA-EPBX (ESRD) 4,000 UNIT/ML VIAL SC SCH (17:00)
[2019-04-01 19:41] VITALS: BP 163/69; PULSE 86; RESP 18
[2019-04-01] MEDS: ATORVASTATIN 40 MG TAB GTB SCH (21:30)
[2019-04-02] VITALS (18 sets, daily range): BP systolic 87–154; BP diastolic 35–89; PULSE 71–101; RESP 16–18
[2019-04-02] MEDS: ALBUTEROL/IPRATROPIUM (NEB) 3 ML AMP HHN SCH ×6 (01:01→21:00)
[2019-04-02] MEDS: LANSOPRAZOLE 30 MG CAP GTB SCH ×2 (05:24→17:16)
--- NOTE | 2019-04-02 08:57 | CONS ---
Assessment/Plan Assessment/Plan Hospital Course (Demo Recall) 1. End-stage renal disease on hemodialysis. 2. Anemia of chronic disease 3. Urinary tract infection. 4. Hypertension. 5. Dementia. 6. Diabetes mellitus type II. 7. Diastolic heart failure. 8. Moderate protein energy malnutrition with cachexia. 9. Osteoarthritis. 10. GT status Assessment/Plan (Daily) -on HD -Hand H monitor -c/w epogen _UA is not collected -c/w Phos binding agents Consultation Date/Type/Reason Admit Date/Time Feb 19, 2019 at 01:01 Initial Consult Date 02/19/2019 Type of Consult nephrology Requesting Provider: JOSE RAUL ANDREWS MD Date/Time of Note DATE: 04/02/19 TIME: 08:57 24 HR Interval Summary Free Text/Dictation sleeping quietly Exam/Review of Systems Exam Vitals Vital Signs Date Temp Pulse Resp B/P (MAP) Pulse Ox O2 O2 Flow FiO2 Time Delivery Rate 04/02/19 97.4 90 18 136/64 98 07:39 (88) 04/02/19 21 05:02 03/31/19 Room Air 16:43 Intake and Output 04/01/19 04/01/19 04/02/19 1515:00 23:00 07:00 IntakeIntake Total 560 ml BalanceBalance 560 ml Exam left chest Permcath Constitutional: frail Head: normocephalic Neck: supple Respiratory: diminished breath sounds Cardiovascular: regular rate and rhythm Gastrointestinal: soft, other (GT) Results Result Diagram: 04/01/19 0536 04/01/19 0536 Results 24hrs Laboratory Tests Test 04/01/19 09:18 04/01/19 21:34 Bedside Glucose 161 152 Medications Medication Current Medications Epoetin Michael-epbx (Retacrit (Esrd)) 4,000 unit MoWeFr@1700 SC Last administered on 03/30/19at 18:11; Admin Dose 4,000 UNIT; Start 02/28/19 at 17:00 Olanzapine (Zyprexa) 2.5 mg DAILY GTB Last administered on 04/01/19at 09:15; Admin Dose 2.5 MG; Start 03/01/19 at 09:00 Lansoprazole (Prevacid) 30 mg BID@0600,1800 GTB Last administered on 04/02/19at 05:24; Admin Dose 30 MG; Start 02/28/19 at 18:00 Ferrous Sulfate (Feosol Liquid Cup) 300 mg BID GTB Last administered on 04/01/19at 21:30; Admin Dose 300 MG; Start 03/08/19 at 09:00 Albuterol/ Ipratropium (Duoneb) 3 ml Q4H RESP THERAPY HHN Last administered on 04/02/19at 05:02; Admin Dose 3 ML; Start 03/12/19 at 10:00 Albuterol/ Ipratropium (Duoneb) 3 ml Q2H RESP THERAPY PRN HHN SHORTNESS OF BREATH; Start 03/12/19 at 10:00 Miscellaneous Information 1 ea NOTE XX ; Start 03/13/19 at 16:30 Glucose (Glutose) 15 gm Q15M PRN PO DECREASED GLUCOSE; Start 03/13/19 at 16:30 Glucose (Glutose) 22.5 gm Q15M PRN PO DECREASED GLUCOSE; Start 03/13/19 at 16:30 Dextrose (D50w Syringe) 25 ml Q15M PRN IV DECREASED GLUCOSE; Start 03/13/19 at 16:30 Dextrose (D50w Syringe) 50 ml Q15M PRN IV DECREASED GLUCOSE; Start 03/13/19 at 16:30 Glucagon (Glucagen) 1 mg Q15M PRN IM DECREASED GLUCOSE; Start 03/13/19 at 16:30 Glucose (Glutose) 15 gm Q15M PRN BUCCAL DECREASED GLUCOSE; Start 03/13/19 at 16:30 Lorazepam (Ativan) 0.5 mg QID PRN GTB ANXIETY Last administered on 04/01/19at 00:47; Admin Dose 0.5 MG; Start 03/23/19 at 20:00 Acetaminophen (Tylenol Liquid) 650 mg Q4H PRN GTB MILD PAIN(1-3)OR ELEVATED TEMP Last administered on 03/27/19 20:21; Admin Dose 650 MG; Start 03/23/19 at 20:00 Amlodipine Besylate (Norvasc) 5 mg BID GTB Last administered on 04/01/19at 21:31; Admin Dose 5 MG; Start 03/26/19 at 21:00 Ascorbic Acid (Vitamin C) 500 mg DAILY GTB Last administered on 04/01/19at 09:15; Admin Dose 500 MG; Start 03/27/19 at 09:00 Docusate Sodium (Colace Liquid Cup) 100 mg BID GTB Last administered on 04/01/19 21:30; Admin Dose 100 MG; Start 03/26/19 at 21:00 Folic Acid (Folic Acid) 1 mg DAILY GTB Last administered on 04/01/19 09:15; Admin Dose 1 MG; Start 03/27/19 at 09:00 Linagliptin (Tradjenta) 5 mg DAILY PO Last administered on 04/01/19 09:18; Admin Dose 5 MG; Start 03/27/19 at 09:00 Metoprolol Tartrate (Lopressor) 50 mg BID GTB Last administered on 04/01/19 21:31; Admin Dose 50 MG; Start 03/26/19 at 21:00 Atorvastatin Calcium (Lipitor) 40 mg HS GTB Last administered on 04/01/19 21:30; Admin Dose 40 MG; Start 03/26/19 at 21:00 Diagnostic Test (Pha) (Accu-Chek) 1 ea Q12 XX Last administered on 03/31/19 08:58; Admin Dose 1 EA; Start 03/28/19 at 20:00 FLAVIO CLAYTON April 02, 2019 08:57
[2019-04-02] MEDS: ACCU-CHEK XX SCH ×2 (09:00→21:07)
[2019-04-02] MEDS: METOPROLOL 50 MG TAB GTB SCH ×2 (09:00→21:06)
[2019-04-02] MEDS: AMLODIPINE 5 MG TAB GTB SCH ×2 (09:00→21:07)
[2019-04-02] MEDS: OLANZAPINE 2.5 MG TAB GTB SCH (09:10)
[2019-04-02] MEDS: FERROUS SULFATE 60 MG/ML 5ML CUP GTB SCH ×2 (09:10→21:05)
[2019-04-02] MEDS: ASCORBIC ACID 500 MG TAB GTB SCH (09:10)
[2019-04-02] MEDS: DOCUSATE SODIUM 10 MG/ML (10ML CUP) GTB SCH ×2 (09:10→21:05)
[2019-04-02] MEDS: FOLIC ACID 1 MG TAB GTB SCH (09:10)
[2019-04-02] MEDS: LINAGLIPTIN 5 MG TABLET PO SCH (09:11)
[2019-04-02] MEDS: ATORVASTATIN 40 MG TAB GTB SCH (21:05)
--- NOTE | 2019-04-02 21:22 | PN ---
DATE: 04/02/2019 SUBJECTIVE: The patient was seen, currently undergoing dialysis. Otherwise, no acute events. No la bs today. PHYSICAL EXAMINATION: VITAL SIGNS: Temperature is 97.4, pulse is 98, respiration is 16, blood pressure 132/51, saturation 98% on room air. GENERAL: The patient is frail, pale. HEENT: Temporal wasting. CARDIOVASCULAR: S1, S2, regular rate. Left upper chest Perm-A-Cath. EXTREMITIES: Otherwise, no clubbing, cyanosis, or edema. LABORATORY DATA: White count is 7.7, hemoglobin 9.2, hematocrit 29, platelets 247. This is yesterda y. The chemistry showed sodium 135, potassium 4.0, chloride 98, bicarbonate 31, BUN is 49, creatinin e 1.4, glucose 162. Last glucose level 160, 152, 161. MEDICATIONS: All reviewed, include: 1. Accu-Cheks. 2. Vitamin C 500 mg daily. 3. Folic acid 1 mg daily. 4. Tradjenta 5 mg daily. 5. Norvasc 5 mg b.i.d. 6. Colace 100 daily. 7. Lopressor 50 b.i.d. 8. Lipitor 40 at bedtime. 9. Ativan p.r.n. 10. Tylenol p.r.n. 11. Hypoglycemia protocol p.r.n. Other meds include: 1. Ferrous sulfate 300 b.i.d. 2. Zyprexa 2.5 daily. 3. Prevacid 30 b.i.d. 4. Epogen as directed with dialysis. ASSESSMENT AND PLAN: This is an 83-year-old Filip[place] female with history of end-stage renal disease, vascular dementia, hypertension, diabetes mellitus, anemia who is status post treatment for bacterem ia, pneumonia, urinary tract infection. 1. Respiratory. O2 support as needed. Head elevation to prevent aspiration. 2. Cardiovascular. Vitals are stable. Continue above blood pressure medications. Off blood thinne rs due to recurrent need for transfusion. 3. Anemia, on Epogen and iron supplements. Check H and H periodically transfuse p.r.n. 4. End-stage renal disease. The patient now being dialyzed every Thursday, and Thursday. C urrently being dialyzed. 5. Infectious disease, off antibiotics. White count is normal and the patient's recent cultures are negative. The patient is afebrile, stable. 6. Psychiatric disorder. Continue Zyprexa. Mood appears to be more stable, but remains in 1:1 maribel toring due to risk of fall. 7. The patient is DNR. Long-term prognosis is poor. 8. Diabetes mellitus on Tradjenta and Lantus. Glucose level in the 100s. 9. Dysphagia and malnutrition, on G-tube feeding at 30 mL an hour. 10. We will follow. Dictated By: DYLON HULL/MADAN Conf#: [id number] DID#: [id number]
[2019-04-02] MEDS: LORAZEPAM 0.5 MG TAB GTB PRN (23:50)
[2019-04-03] MEDS: ALBUTEROL/IPRATROPIUM (NEB) 3 ML AMP HHN SCH ×6 (01:00→21:00)
[2019-04-03 02:01] VITALS: BP 157/70; PULSE 91; RESP 17
[2019-04-03] MEDS: LANSOPRAZOLE 30 MG CAP GTB SCH ×2 (05:47→18:05)
[2019-04-03 08:10] VITALS: BP 125/59; PULSE 85; RESP 14
[2019-04-03] MEDS: ACCU-CHEK XX SCH ×2 (08:45→21:00)
[2019-04-03] MEDS: DOCUSATE SODIUM 10 MG/ML (10ML CUP) GTB SCH ×2 (09:20→20:30)
[2019-04-03] MEDS: ASCORBIC ACID 500 MG TAB GTB SCH (09:20)
[2019-04-03] MEDS: FOLIC ACID 1 MG TAB GTB SCH (09:20)
[2019-04-03] MEDS: FERROUS SULFATE 60 MG/ML 5ML CUP GTB SCH ×2 (09:20→20:30)
[2019-04-03] MEDS: METOPROLOL 50 MG TAB GTB SCH ×2 (09:21→20:30)
[2019-04-03] MEDS: OLANZAPINE 2.5 MG TAB GTB SCH (09:21)
[2019-04-03] MEDS: AMLODIPINE 5 MG TAB GTB SCH ×2 (09:21→20:30)
[2019-04-03] MEDS: LINAGLIPTIN 5 MG TABLET PO SCH (09:21)
--- NOTE | 2019-04-03 09:46 | CONS ---
Assessment/Plan Assessment/Plan Hospital Course (Demo Recall) 1. End-stage renal disease on hemodialysis. 2. Anemia of chronic disease 3. Urinary tract infection. 4. Hypertension. 5. Dementia. 6. Diabetes mellitus type II. 7. Diastolic heart failure. 8. Moderate protein energy malnutrition with cachexia. 9. Osteoarthritis. 10. GT status Assessment/Plan (Daily) -CW HD, has Epogen -placement issue -urine is not collected Consultation Date/Type/Reason Admit Date/Time Feb 19, 2019 at 01:01 Initial Consult Date 02/19/2019 Type of Consult nephrology Requesting Provider: JOSE RAUL ANDREWS MD Date/Time of Note DATE: 04/03/19 TIME: 09:46 24 HR Interval Summary Free Text/Dictation sleeping Exam/Review of Systems Exam Vitals Vital Signs Date Temp Pulse Resp B/P (MAP) Pulse Ox O2 O2 Flow FiO2 Time Delivery Rate 04/03/19 99.3 85 14 125/59 97 08:10 (81) 04/02/19 Room Air 16:37 04/02/19 21 12:12 Intake and Output 04/02/19 04/02/19 04/03/19 1515:00 23:00 07:00 IntakeIntake Total 580 ml 530 ml OutputOutput Total 1400 ml BalanceBalance -820 ml 530 ml Exam left chest permcath Constitutional: frail Head: normocephalic Respiratory: diminished breath sounds Cardiovascular: regular rate and rhythm Gastrointestinal: soft, other (GT with feeding) Results Result Diagram: 04/01/19 0536 04/01/19 0536 Results 24hrs Laboratory Tests Test 04/02/19 10:28 04/02/19 20:57 04/03/19 08:45 Hepatitis B Surface Antigen NEGATIVE Bedside Glucose 146 164 Medications Medication Current Medications Epoetin Michael-epbx (Retacrit (Esrd)) 4,000 unit MoWeFr@1700 SC Last administered on 03/30/19at 18:11; Admin Dose 4,000 UNIT; Start 02/28/19 at 17:00 Olanzapine (Zyprexa) 2.5 mg DAILY GTB Last administered on 04/03/19at 09:21; Admin Dose 2.5 MG; Start 03/01/19 at 09:00 Lansoprazole (Prevacid) 30 mg BID@0600,1800 GTB Last administered on 04/03/19 05:47; Admin Dose 30 MG; Start 02/28/19 at 18:00 Ferrous Sulfate (Feosol Liquid Cup) 300 mg BID GTB Last administered on 04/03/19 09:20; Admin Dose 300 MG; Start 03/08/19 at 09:00 Albuterol/ Ipratropium (Duoneb) 3 ml Q4H RESP THERAPY HHN Last administered on 04/02/19 12:11; Admin Dose 3 ML; Start 03/12/19 at 10:00 Albuterol/ Ipratropium (Duoneb) 3 ml Q2H RESP THERAPY PRN HHN SHORTNESS OF BREATH; Start 03/12/19 at 10:00 Miscellaneous Information 1 ea NOTE XX ; Start 03/13/19 at 16:30 Glucose (Glutose) 15 gm Q15M PRN PO DECREASED GLUCOSE; Start 03/13/19 at 16:30 Glucose (Glutose) 22.5 gm Q15M PRN PO DECREASED GLUCOSE; Start 03/13/19 at 16:30 Dextrose (D50w Syringe) 25 ml Q15M PRN IV DECREASED GLUCOSE; Start 03/13/19 at 16:30 Dextrose (D50w Syringe) 50 ml Q15M PRN IV DECREASED GLUCOSE; Start 03/13/19 at 16:30 Glucagon (Glucagen) 1 mg Q15M PRN IM DECREASED GLUCOSE; Start 03/13/19 at 16:30 Glucose (Glutose) 15 gm Q15M PRN BUCCAL DECREASED GLUCOSE; Start 03/13/19 at 16:30 Lorazepam (Ativan) 0.5 mg QID PRN GTB ANXIETY Last administered on 04/02/19 23:50; Admin Dose 0.5 MG; Start 03/23/19 at 20:00 Acetaminophen (Tylenol Liquid) 650 mg Q4H PRN GTB MILD PAIN(1-3)OR ELEVATED TEMP Last administered on 03/27/19 20:21; Admin Dose 650 MG; Start 03/23/19 at 20:00 Amlodipine Besylate (Norvasc) 5 mg BID GTB Last administered on 04/03/19 09:21; Admin Dose 5 MG; Start 03/26/19 at 21:00 Ascorbic Acid (Vitamin C) 500 mg DAILY GTB Last administered on 04/03/19 09:20; Admin Dose 500 MG; Start 03/27/19 at 09:00 Docusate Sodium (Colace Liquid Cup) 100 mg BID GTB Last administered on 04/03/19 09:20; Admin Dose 100 MG; Start 03/26/19 at 21:00 Folic Acid (Folic Acid) 1 mg DAILY GTB Last administered on 04/03/19 09:20; Admin Dose 1 MG; Start 03/27/19 at 09:00 Linagliptin (Tradjenta) 5 mg DAILY PO Last administered on 04/03/19 09:21; Admin Dose 5 MG; Start 03/27/19 at 09:00 Metoprolol Tartrate (Lopressor) 50 mg BID GTB Last administered on 04/03/19 0 9:21; Admin Dose 50 MG; Start 03/26/19 at 21:00 Atorvastatin Calcium (Lipitor) 40 mg HS GTB Last administered on 04/02/19 21:05; Admin Dose 40 MG; Start 03/26/19 at 21:00 Diagnostic Test (Pha) (Accu-Chek) 1 ea Q12 XX Last administered on 04/02/19 21:07; Admin Dose 1 EA; Start 03/28/19 at 20:00 FLAVIO CLAYTON April 03, 2019 09:46
[2019-04-03 13:59] VITALS: BP 161/68; PULSE 83; RESP 16
--- NOTE | 2019-04-03 17:54 | PN ---
DATE: 04/03/2019 SUBJECTIVE: The patient seen last dialysis yesterday. The patient lying in bed comfortably. Sitter is in place. Case discussed PHYSICAL EXAMINATION: VITAL SIGNS: T-max 99.3, temperature 98.5, pulse 83, respirations 18, blood pressure 161/88 ____, pu lse 100% on room air. GENERAL: No acute distress. Normocephalic. resting comfortably. CARDIOVASCULAR: S1, S2, regular rate. LUNGS: Clear. ABDOMEN: Soft. G-tube in place. EXTREMITIES: No clubbing, cyanosis, or edema. LABORATORY DATA: No new labs today. MEDICATIONS: Reviewed and include the followin. Accu-Cheks. 2. Vitamin C. 3. Folic acid. 4. Tradjenta. 5. Norvasc. 6. Colace. 7. Lopressor. 8. Lipitor. 9. Ativan. 10. Tylenol. 11. Potassium protocol. 12. DuoNeb. 13. Zyprexa. 14. Prevacid. 15. Epogen. The patient's last glucose levels are as follows: 154 and 146. ASSESSMENT AND PLAN: This is an 83-year-old [place] female with history of end-stage renal disease, vascular dementia, hypertension, diabetes mellitus, anemia, status post treatment for bacteremia, pn eumonia and urinary tract infection. 1. Respiratory. Continue O2 support. Head elevation to prevent aspiration. 2. Cardiovascular. Vitals are stable. Blood pressure slightly elevated today. Observe. Continue above meds. 3. Anemia. Continue Epogen and iron supplement. Monitor H and H periodically to adjust p.r.n. 4. End-stage renal disease. Last dialysis is yesterday. Anticipate next dialysis on Thursday. Chelsie tor electrolytes. 5. Infectious disease, off antibiotics. Also treated for UTI, bacteremia and pneumonia. 6. Psychiatric disorder. On Zyprexa. Mood stable. The patient is currently resting comfortably. 7. The patient is DNR with poor long-term prognosis due to multiple medical issues. 8. Diabetes mellitus on Tradjenta and Lantus. Glucose levels are in the 100s. 9. Dysphagia and malnutrition. Continue G-tube feeding at 30 mL an hour. 10. Continue to monitor patient closely. The patient is at risk of fall. She has a 1:1 sitter on t he medical/surgical floor. 11. plant operations manager is awaiting placement. Noted recommendations. We will follow. Dictated By: DYLON HULL/MADAN Conf#: [id number] DID#: [id number]
[2019-04-03 19:55] VITALS: BP 129/61; PULSE 98; RESP 18
[2019-04-03] MEDS: ATORVASTATIN 40 MG TAB GTB SCH (20:30)
[2019-04-03] MEDS: LORAZEPAM 0.5 MG TAB GTB PRN (20:30)
[2019-04-04] MEDS: ALBUTEROL/IPRATROPIUM (NEB) 3 ML AMP HHN SCH ×6 (01:26→21:00)
[2019-04-04 02:13] VITALS: BP 139/60; PULSE 91; RESP 17
[2019-04-04] MEDS: ACETAMINOPHEN 650MG/20.3ML CUP GTB PRN ×2 (02:26→21:43)
[2019-04-04] MEDS: LANSOPRAZOLE 30 MG CAP GTB SCH ×2 (06:13→17:37)
[2019-04-04 07:57] VITALS: BP 122/60; PULSE 71; RESP 18
[2019-04-04] MEDS: ACCU-CHEK XX SCH ×2 (09:00→21:00)
[2019-04-04] MEDS: ASCORBIC ACID 500 MG TAB GTB SCH (09:09)
[2019-04-04] MEDS: FOLIC ACID 1 MG TAB GTB SCH (09:09)
[2019-04-04] MEDS: FERROUS SULFATE 60 MG/ML 5ML CUP GTB SCH ×2 (09:09→21:43)
[2019-04-04] MEDS: DOCUSATE SODIUM 10 MG/ML (10ML CUP) GTB SCH ×2 (09:09→21:43)
[2019-04-04] MEDS: OLANZAPINE 2.5 MG TAB GTB SCH (09:09)
[2019-04-04] MEDS: LINAGLIPTIN 5 MG TABLET PO SCH (09:10)
--- NOTE | 2019-04-04 09:14 | CONS ---
Assessment/Plan Assessment/Plan Hospital Course (Demo Recall) 1. End-stage renal disease on hemodialysis. 2. Anemia of chronic disease 3. Urinary tract infection. 4. Hypertension. 5. Dementia. 6. Diabetes mellitus type II. 7. Diastolic heart failure. 8. Moderate protein energy malnutrition with cachexia. 9. Osteoarthritis. 10. GT status Assessment/Plan (Daily) -c/w HD -spikes fever -Cw phos. binding agents. -c/w epogen -UA is not collected, pt is inc. Consultation Date/Type/Reason Admit Date/Time Feb 19, 2019 at 01:01 Initial Consult Date 02/19/2019 Type of Consult nephrology Requesting Provider: JOSE RAUL ANDREWS MD Date/Time of Note DATE: 04/04/19 TIME: 09:12 24 HR Interval Summary Free Text/Dictation with sitter. Constitutional: other (answer questions) Exam/Review of Systems Exam Vitals Vital Signs Date Temp Pulse Resp B/P (MAP) Pulse Ox O2 O2 Flow FiO2 Time Delivery Rate 04/04/19 98.0 71 18 122/60 98 07:57 (80) 04/04/19 21 04:58 04/02/19 Room Air 16:37 Intake and Output 04/03/19 04/03/19 04/04/19 1515:00 23:00 07:00 IntakeIntake Total 590 ml BalanceBalance 590 ml Exam left chest Perm cath Constitutional: alert Head: normocephalic Eyes: nl conjunctiva Neck: supple Respiratory: diminished breath sounds Cardiovascular: regular rate and rhythm Gastrointestinal: surgical scars, other (GT) Musculoskeletal: muscle weakness Additional Comments spikes fever Results Result Diagram: 04/01/19 0536 04/01/19 0536 Results 24hrs Laboratory Tests Test 04/03/19 20:33 04/04/19 08:09 Bedside Glucose 135 125 Medications Medication Current Medications Epoetin Michael-epbx (Retacrit (Esrd)) 4,000 unit MoWeFr@1700 SC Last administered on 03/30/19at 18:11; Admin Dose 4,000 UNIT; Start 02/28/19 at 17:00 Olanzapine (Zyprexa) 2.5 mg DAILY GTB Last administered on 04/03/19at 09:21; Admin Dose 2.5 MG; Start 03/01/19 at 09:00 Lansoprazole (Prevacid) 30 mg BID@0600,1800 GTB Last administered on 04/04/19at 06:13; Admin Dose 30 MG; Start 02/28/19 at 18:00 Ferrous Sulfate (Feosol Liquid Cup) 300 mg BID GTB Last administered on 04/03/19at 20:30; Admin Dose 300 MG; Start 03/08/19 at 09:00 Albuterol/ Ipratropium (Duoneb) 3 ml Q4H RESP THERAPY HHN Last administered on 04/04/19at 04:55; Admin Dose 3 ML; Start 03/12/19 at 10:00 Albuterol/ Ipratropium (Duoneb) 3 ml Q2H RESP THERAPY PRN HHN SHORTNESS OF BREATH; Start 03/12/19 at 10:00 Miscellaneous Information 1 ea NOTE XX ; Start 03/13/19 at 16:30 Glucose (Glutose) 15 gm Q15M PRN PO DECREASED GLUCOSE; Start 03/13/19 at 16:30 Glucose (Glutose) 22.5 gm Q15M PRN PO DECREASED GLUCOSE; Start 03/13/19 at 16:30 Dextrose (D50w Syringe) 25 ml Q15M PRN IV DECREASED GLUCOSE; Start 03/13/19 at 16:30 Dextrose (D50w Syringe) 50 ml Q15M PRN IV DECREASED GLUCOSE; Start 03/13/19 at 16:30 Glucagon (Glucagen) 1 mg Q15M PRN IM DECREASED GLUCOSE; Start 03/13/19 at 16:30 Glucose (Glutose) 15 gm Q15M PRN BUCCAL DECREASED GLUCOSE; Start 03/13/19 at 16:30 Lorazepam (Ativan) 0.5 mg QID PRN GTB ANXIETY Last administered on 04/03/19at 20:30; Admin Dose 0.5 MG; Start 03/23/19 at 20:00 Acetaminophen (Tylenol Liquid) 650 mg Q4H PRN GTB MILD PAIN(1-3)OR ELEVATED TEMP Last administered on 04/04/19at 02:26; Admin Dose 650 MG; Start 03/23/19 at 20:00 Amlodipine Besylate (Norvasc) 5 mg BID GTB Last administered on 04/03/19at 20:30; Admin Dose 5 MG; Start 03/26/19 at 21:00 Ascorbic Acid (Vitamin C) 500 mg DAILY GTB Last administered on 04/03/19 09:20; Admin Dose 500 MG; Start 03/27/19 at 09:00 Docusate Sodium (Colace Liquid Cup) 100 mg BID GTB Last administered on 04/03/19 20:30; Admin Dose 100 MG; Start 03/26/19 at 21:00 Folic Acid (Folic Acid) 1 mg DAILY GTB Last administered on 04/03/19 09:20; Admin Dose 1 MG; Start 03/27/19 at 09:00 Linagliptin (Tradjenta) 5 mg DAILY PO Last administered on 04/03/19 09:21; Admin Dose 5 MG; Start 03/27/19 at 09:00 Metoprolol Tartrate (Lopressor) 50 mg BID GTB Last administered on 04/03/19 20:30; Admin Dose 50 MG; Start 03/26/19 at 21:00 Atorvastatin Calcium (Lipitor) 40 mg HS GTB Last administered on 04/03/19 20:30; Admin Dose 40 MG; Start 03/26/19 at 21:00 Diagnostic Test (Pha) (Accu-Chek) 1 ea Q12 XX Last administered on 04/02/19 21:07; Admin Dose 1 EA; Start 03/28/19 at 20:00 FLAVIO CLAYTON April 04, 2019 09:14
[2019-04-04] MEDS: METOPROLOL 50 MG TAB GTB SCH ×2 (09:17→21:44)
[2019-04-04] MEDS: AMLODIPINE 5 MG TAB GTB SCH ×2 (09:17→21:43)
[2019-04-04 15:31] VITALS: BP 157/72; PULSE 89; RESP 18
[2019-04-04] MEDS: EPOETIN ALFA-EPBX (ESRD) 4,000 UNIT/ML VIAL SC SCH (17:36)
--- NOTE | 2019-04-04 19:18 | PN ---
DATE: 04/04/2019 HISTORY OF PRESENT ILLNESS: The patient is noted to have a low-grade temperature of 100.1 overnight. We request urine studies to be obtained. Daughter is at bedside. The patient is seen. Overall, s he appears to be comfortable. PHYSICAL EXAMINATION: VITAL SIGNS: Temperature 97.8, pulse 89, respiration 18, blood pressure 122/60, saturation 100%. GENERAL: The patient is frail, pale. CARDIOVASCULAR: S1, S2, regular rate. LUNGS: Clear. ABDOMEN: Soft. G-tube in place. EXTREMITIES: No clubbing, cyanosis, or edema. SKIN: Some skin ecchymosis noted. LABORATORY DATA: White count 7.7, hemoglobin 9.2. This was on 04/01/2019. No recent electrolytes. Last glucoses 125, 134, and 164. MEDICATIONS: The patient's medications were all reviewed and include Accu-Cheks as directed, vitamin C 500 mg daily, folic acid 1 daily, Tradjenta 5 mg daily, Norvasc 5 mg b.i.d., Colace 100 b.i.d., Lo pressor 50 b.i.d., Lipitor 40 at bedtime, Ativan p.r.n., hypoglycemia protocol, breathing treatment a s directed, ferrous sulfate 300 b.i.d., Zyprexa 2.5 daily, Prevacid 20 mg daily, and Epogen with dial ysis. ASSESSMENT AND PLAN: This is an 83-year-old unfortunate [place] female with end-stage renal disease , vascular dementia, hypertension, diabetes mellitus, anemia, status post treatment for bacteremia, p neumonia, and urinary tract infection. 1. Respiratory rate and O2 support, aspiration precautions, head elevation. 2. Cardiovascular. Blood pressure slightly high. Observe. Continue the same. 3. Low-grade temperature with history of recurrent urinary tract infections. Will obtain another ur ine studies, monitor, check a CBC tomorrow. ID has been following. 4. Anemia. Continue Epogen and iron supplements. Monitor H and H. Transfuse as needed. Off blood thinners due to need for transfusion. 5. End-stage renal disease. 6. Dialysis. Consult tomorrow on Thursday. 7. Psychiatric disorder. Remains on Zyprexa. Mood appears to be more stable. 8. The patient is DNR with poor long-term prognosis due to medical issue, prolonged hospitalization. 9. Diabetes mellitus on Tradjenta and Lantus. Last glucose level in the low 100s. 10. Dysphagia and malnutrition on G-tube feeding to 30 mL an hour. 11. Continue to monitor. Monitor for evidence of recurrent infection. Continued to have a 1:1 sitt er due to risk of fall. 12. manager resource is assisting and contact insurance for placement. We will follow. Case discussed with daughter at bedside. Dictated By: DYLON HULL/MADAN Conf#: [id number] DID#: [id number] CC: JOSE RAUL ANDREWS;*EndCC*
[2019-04-04 20:26] VITALS: BP 148/66; PULSE 93; RESP 17
[2019-04-04] MEDS: ATORVASTATIN 40 MG TAB GTB SCH (21:43)
[2019-04-04] MEDS: LORAZEPAM 0.5 MG TAB GTB PRN (21:43)
[2019-04-05] MEDS: ALBUTEROL/IPRATROPIUM (NEB) 3 ML AMP HHN SCH ×6 (01:38→21:12)
[2019-04-05 02:00] VITALS: BP 119/58; PULSE 77; RESP 19
[2019-04-05] MEDS: LANSOPRAZOLE 30 MG CAP GTB SCH ×2 (06:09→17:54)
[2019-04-05 07:32] VITALS: BP 127/60; PULSE 76; RESP 18
[2019-04-05] MEDS: DOCUSATE SODIUM 10 MG/ML (10ML CUP) GTB SCH ×2 (09:01→21:35)
[2019-04-05] MEDS: FERROUS SULFATE 60 MG/ML 5ML CUP GTB SCH ×2 (09:01→21:35)
[2019-04-05] MEDS: ASCORBIC ACID 500 MG TAB GTB SCH (09:02)
[2019-04-05] MEDS: LINAGLIPTIN 5 MG TABLET PO SCH (09:02)
[2019-04-05] MEDS: OLANZAPINE 2.5 MG TAB GTB SCH (09:02)
[2019-04-05] MEDS: FOLIC ACID 1 MG TAB GTB SCH (09:02)
[2019-04-05] MEDS: METOPROLOL 50 MG TAB GTB SCH ×2 (09:03→21:37)
[2019-04-05] MEDS: AMLODIPINE 5 MG TAB GTB SCH ×2 (09:03→21:36)
[2019-04-05] MEDS: ACCU-CHEK XX SCH ×2 (09:03→21:34)
--- NOTE | 2019-04-05 13:59 | CONS ---
Assessment/Plan Assessment/Plan Hospital Course (Demo Recall) Spiking low-grade fevers with a T-max of 99.8 yesterday currently afebrile. WBC 10.5 platelets 206 neutrophils 72.8 Indwelling: Left subclavian permacath, PEG Microbiology: Urine culture on admission grew Dominique glabrata, blood culture grew Enterococcus Chest x-ray on admission revealed no definite evidence of pneumonia or CHF Physical examination: This is a chronically ill-appearing wasted elderly woman who is in no distress. Head atraumatic normocephalic. Neck is supple. Chest r ise symmetrical patient is mildly tachypneic with expiratory wheezes. Heart: S1-S2, tachycardic. Abdomen soft bowel sounds present. Extremities without cyanosis edema. Assessment: 1. Systemic inflammatory response syndrome with low-grade fevers, rule out aspiration versus recurrent UTI 2. Status post recurrent UTI and bacteremia 4. End-stage renal disease, hemodialysis dependent 5. Anemia 6. 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 Plan: Clinically unchanged, stable, off abx, will order chest x-ray, blood and urine cultures and start on meropenem and fluconazole Consultation Date/Type/Reason Admit Date/Time Feb 19, 2019 at 01:01 Initial Consult Date Type of Consult id Requesting Provider: JOSE RAUL ANDREWS MD Date/Time of Note DATE: 04/05/19 TIME: 13:57 Exam/Review of Systems Exam Vitals Vital Signs Date Temp Pulse Resp B/P (MAP) Pulse Ox O2 O2 Flow FiO2 Time Delivery Rate 04/05/19 98.0 76 18 127/60 100 Room Air 07:32 (82) 04/05/19 21 05:23 Intake and Output 04/04/19 04/04/19 04/05/19 1515:00 23:00 07:00 IntakeIntake Total 590 ml OutputOutput Total 80 ml BalanceBalance 510 ml Results Result Diagram: 04/05/19 0659 04/05/19 0659 Results 24hrs Laboratory Tests Test 04/04/19 21:41 04/05/19 06:59 04/05/19 09:00 Bedside Glucose 165 166 White Blood Count 10.5 # Red Blood Count 3.07 L Hemoglobin 8.2 L Hematocrit 25.4 L Mean Corpuscular Volume 82.7 Mean Corpuscular Hemoglobin 26.7 L Mean Corpuscular Hemoglobin Concent 32.3 Red Cell Distribution Width 15.4 H Platelet Count 206 Mean Platelet Volume 12.7 H Immature Granulocytes % 0.600 H Neutrophils % 72.8 Lymphocytes % 11.1 L Monocytes % 10.4 Eosinophils % 4.8 Basophils % 0.3 Nucleated Red Blood Cells % 0.2 H Immature Granulocytes # 0.060 H Neutrophils # 7.6 H Lymphocytes # 1.2 Monocytes # 1.1 H Eosinophils # 0.5 Basophils # 0.0 Nucleated Red Blood Cells # 0.0 Sodium Level 134 L Potassium Level 3.8 Chloride Level 97 Carbon Dioxide Level 28 Anion Gap 9 Blood Urea Nitrogen 99 H Creatinine 2.18 H Est Glomerular Filtrat Rate mL/min Glucose Level 115 Calcium Level 8.5 Phosphorus Level 3.7 Magnesium Level 2.5 Total Bilirubin 0.6 Direct Bilirubin 0.00 Indirect Bilirubin 0.6 Aspartate Amino Transf (AST/SGOT) 29 Alanine Aminotransferase (ALT/SGPT) 21 Alkaline Phosphatase 158 H Total Protein 6.5 Albumin 3.0 L Globulin 3.50 H Albumin/Globulin Ratio 0.85 Medications Medication Current Medications Epoetin Michael-epbx (Retacrit (Esrd)) 4,000 unit MoWeFr@1700 SC Last administered on 04/04/19 17:36; Admin Dose 4,000 UNIT; Start 02/28/19 at 17:00 Olanzapine (Zyprexa) 2.5 mg DAILY GTB Last administered on 04/05/19 09:02; Admin Dose 2.5 MG; Start 03/01/19 at 09:00 Lansoprazole (Prevacid) 30 mg BID@0600,1800 GTB Last administered on 04/05/19 06:09; Admin Dose 30 MG; Start 02/28/19 at 18:00 Ferrous Sulfate (Feosol Liquid Cup) 300 mg BID GTB Last administered on 04/05/19 09:01; Admin Dose 300 MG; Start 03/08/19 at 09:00 Albuterol/ Ipratropium (Duoneb) 3 ml Q4H RESP THERAPY HHN Last administered on 04/05/19 05:23; Admin Dose 3 ML; Start 03/12/19 at 10:00 Albuterol/ Ipratropium (Duoneb) 3 ml Q2H RESP THERAPY PRN HHN SHORTNESS OF BREATH; Start 03/12/19 at 10:00 Miscellaneous Information 1 ea NOTE XX ; Start 03/13/19 at 16:30 Glucose (Glutose) 15 gm Q15M PRN PO DECREASED GLUCOSE; Start 03/13/19 at 16:30 Glucose (Glutose) 22.5 gm Q15M PRN PO DECREASED GLUCOSE; Start 03/13/19 at 16:30 Dextrose (D50w Syringe) 25 ml Q15M PRN IV DECREASED GLUCOSE; Start 03/13/19 at 16:30 Dextrose (D50w Syringe) 50 ml Q15M PRN IV DECREASED GLUCOSE; Start 03/13/19 at 16:30 Glucagon (Glucagen) 1 mg Q15M PRN IM DECREASED GLUCOSE; Start 03/13/19 at 16:30 Glucose (Glutose) 15 gm Q15M PRN BUCCAL DECREASED GLUCOSE; Start 03/13/19 at 16:30 Lorazepam (Ativan) 0.5 mg QID PRN GTB ANXIETY Last administered on 04/04/19 21:43; Admin Dose 0.5 MG; Start 03/23/19 at 20:00 Acetaminophen (Tylenol Liquid) 650 mg Q4H PRN GTB MILD PAIN(1-3)OR ELEVATED TEMP Last administered on 04/04/19 21:43; Admin Dose 650 MG; Start 03/23/19 at 20:00 Amlodipine Besylate (Norvasc) 5 mg BID GTB Last administered on 04/05/19 09:03; Admin Dose 5 MG; Start 03/26/19 at 21:00 Ascorbic Acid (Vitamin C) 500 mg DAILY GTB Last administered on 04/05/19 09:02; Admin Dose 500 MG; Start 03/27/19 at 09:00 Docusate Sodium (Colace Liquid Cup) 100 mg BID GTB Last administered on 04/05/19 09:01; Admin Dose 100 MG; Start 03/26/19 at 21:00 Folic Acid (Folic Acid) 1 mg DAILY GTB Last administered on 04/05/19 09:02; Admin Dose 1 MG; Start 03/27/19 at 09:00 Linagliptin (Tradjenta) 5 mg DAILY PO Last administered on 04/05/19 09:02; Admin Dose 5 MG; Start 03/27/19 at 09:00 Metoprolol Tartrate (Lopressor) 50 mg BID GTB Last administered on 04/05/19 09:03; Admin Dose 50 MG; Start 03/26/19 at 21:00 Atorvastatin Calcium (Lipitor) 40 mg HS GTB Last administered on 04/04/19 21:43; Admin Dose 40 MG; Start 03/26/19 at 21:00 Diagnostic Test (Pha) (Accu-Chek) 1 ea Q12 XX Last administered on 04/05/19 09:03; Admin Dose 1 EA; Start 03/28/19 at 20:00 PHYLICIA HOLCOMB NP April 05, 2019 13:59
[2019-04-05 14:00] VITALS: BP 142/61; PULSE 78; RESP 16
[2019-04-05] MEDS: ACETAMINOPHEN 650MG/20.3ML CUP GTB PRN (15:13)
[2019-04-05] MEDS: FLUCONAZOLE 100 MG TAB PO SCH (15:13)
[2019-04-05] MEDS: MEROPENEM 500MG/50 ML (PMX) 50 ML IVPB SCH (16:22)
[2019-04-05] MEDS ORDERED: morphine 2 MG INJ IV PRN (16:30)
--- NOTE | 2019-04-05 17:04 | CONS ---
Assessment/Plan Assessment/Plan Assessment/Plan (Daily) 1. End-stage renal disease on hemodialysis. 2. Anemia of chronic disease 3. hx Urinary tract infection. 4. Hypertension. 5. Dementia. 6. Diabetes mellitus type II. 7. Diastolic heart failure. 8. Moderate protein energy malnutrition with cachexia. 9. Osteoarthritis. 10. GT status 11 fevers Assessment/Plan (Daily) -c/w HD, HD today -send blood cultures from [facility] -Cw phos. binding agents. Continue with epogen 4000 Consultation Date/Type/Reason Admit Date/Time Feb 19, 2019 at 01:01 Initial Consult Date Requesting Provider: JOSE RAUL ANDREWS MD Date/Time of Note DATE: 04/05/19 TIME: 17:02 24 HR Interval Summary Free Text/Dictation Low-grade fevers. Exam/Review of Systems Exam Vitals Vital Signs Date Temp Pulse Resp B/P (MAP) Pulse Ox O2 O2 Flow FiO2 Time Delivery Rate 04/05/19 98.3 78 16 142/61 100 14:00 (88) 04/05/19 Room Air 07:32 04/05/19 21 05:23 Intake and Output 04/04/19 04/04/19 04/05/19 1515:00 23:00 07:00 IntakeIntake Total 590 ml OutputOutput Total 80 ml BalanceBalance 510 ml Exam left chest Perm cath Constitutional: alert Head: normocephalic Eyes: nl conjunctiva Neck: supple Respiratory: diminished breath sounds Cardiovascular: regular rate and rhythm Gastrointestinal: surgical scars, other (GT) Musculoskeletal: muscle weakness Additional Comments s Results Result Diagram: 04/05/19 0659 04/05/19 0659 Results 24hrs Laboratory Tests Test 04/04/19 21:41 04/05/19 06:59 04/05/19 09:00 Bedside Glucose 165 166 White Blood Count 10.5 # Red Blood Count 3.07 L Hemoglobin 8.2 L Hematocrit 25.4 L Mean Corpuscular Volume 82.7 Mean Corpuscular Hemoglobin 26.7 L Mean Corpuscular Hemoglobin Concent 32.3 Red Cell Distribution Width 15.4 H Platelet Count 206 Mean Platelet Volume 12.7 H Immature Granulocytes % 0.600 H Neutrophils % 72.8 Lymphocytes % 11.1 L Monocytes % 10.4 Eosinophils % 4.8 Basophils % 0.3 Nucleated Red Blood Cells % 0.2 H Immature Granulocytes # 0.060 H Neutrophils # 7.6 H Lymphocytes # 1.2 Monocytes # 1.1 H Eosinophils # 0.5 Basophils # 0.0 Nucleated Red Blood Cells # 0.0 Sodium Level 134 L Potassium Level 3.8 Chloride Level 97 Carbon Dioxide Level 28 Anion Gap 9 Blood Urea Nitrogen 99 H Creatinine 2.18 H Est Glomerular Filtrat Rate mL/min Glucose Level 115 Calcium Level 8.5 Phosphorus Level 3.7 Magnesium Level 2.5 Total Bilirubin 0.6 Direct Bilirubin 0.00 Indirect Bilirubin 0.6 Aspartate Amino Transf (AST/SGOT) 29 Alanine Aminotransferase (ALT/SGPT) 21 Alkaline Phosphatase 158 H Total Protein 6.5 Albumin 3.0 L Globulin 3.50 H Albumin/Globulin Ratio 0.85 Medications Medication Current Medications Epoetin Michael-epbx (Retacrit (Esrd)) 4,000 unit MoWeFr@1700 SC Last administered on 04/04/19at 17:36; Admin Dose 4,000 UNIT; Start 02/28/19 at 17:00 Olanzapine (Zyprexa) 2.5 mg DAILY GTB Last administered on 04/05/19at 09:02; Admin Dose 2.5 MG; Start 03/01/19 at 09:00 Lansoprazole (Prevacid) 30 mg BID@0600,1800 GTB Last administered on 04/05/19at 06:09; Admin Dose 30 MG; Start 02/28/19 at 18:00 Ferrous Sulfate (Feosol Liquid Cup) 300 mg BID GTB Last administered on 04/05/19at 09:01; Admin Dose 300 MG; Start 03/08/19 at 09:00 Albuterol/ Ipratropium (Duoneb) 3 ml Q4H RESP THERAPY HHN Last administered on 04/05/19at 05:23; Admin Dose 3 ML; Start 03/12/19 at 10:00 Albuterol/ Ipratropium (Duoneb) 3 ml Q2H RESP THERAPY PRN HHN SHORTNESS OF BREATH; Start 03/12/19 at 10:00 Miscellaneous Information 1 ea NOTE XX ; Start 03/13/19 at 16:30 Glucose (Glutose) 15 gm Q15M PRN PO DECREASED GLUCOSE; Start 03/13/19 at 16:30 Glucose (Glutose) 22.5 gm Q15M PRN PO DECREASED GLUCOSE; Start 03/13/19 at 16:30 Dextrose (D50w Syringe) 25 ml Q15M PRN IV DECREASED GLUCOSE; Start 03/13/19 at 16:30 Dextrose (D50w Syringe) 50 ml Q15M PRN IV DECREASED GLUCOSE; Start 03/13/19 at 16:30 Glucagon (Glucagen) 1 mg Q15M PRN IM DECREASED GLUCOSE; Start 03/13/19 at 16:30 Glucose (Glutose) 15 gm Q15M PRN BUCCAL DECREASED GLUCOSE; Start 03/13/19 at 16:30 Lorazepam (Ativan) 0.5 mg QID PRN GTB ANXIETY Last administered on 04/04/19 21:43; Admin Dose 0.5 MG; Start 03/23/19 at 20:00 Acetaminophen (Tylenol Liquid) 650 mg Q4H PRN GTB MILD PAIN(1-3)OR ELEVATED TEM P Last administered on 04/05/19 15:13; Admin Dose 650 MG; Start 03/23/19 at 20:00 Amlodipine Besylate (Norvasc) 5 mg BID GTB Last administered on 04/05/19 09:03; Admin Dose 5 MG; Start 03/26/19 at 21:00 Ascorbic Acid (Vitamin C) 500 mg DAILY GTB Last administered on 04/05/19 09:02; Admin Dose 500 MG; Start 03/27/19 at 09:00 Docusate Sodium (Colace Liquid Cup) 100 mg BID GTB Last administered on 04/05/19 09:01; Admin Dose 100 MG; Start 03/26/19 at 21:00 Folic Acid (Folic Acid) 1 mg DAILY GTB Last administered on 04/05/19 09:02; Admin Dose 1 MG; Start 03/27/19 at 09:00 Linagliptin (Tradjenta) 5 mg DAILY PO Last administered on 04/05/19 09:02; Admin Dose 5 MG; Start 03/27/19 at 09:00 Metoprolol Tartrate (Lopressor) 50 mg BID GTB Last administered on 04/05/19 09:03; Admin Dose 50 MG; Start 03/26/19 at 21:00 Atorvastatin Calcium (Lipitor) 40 mg HS GTB Last administered on 04/04/19 21:43; Admin Dose 40 MG; Start 03/26/19 at 21:00 Diagnostic Test (Pha) (Accu-Chek) 1 ea Q12 XX Last administered on 04/05/19at 09:03; Admin Dose 1 EA; Start 03/28/19 at 20:00 Meropenem/Sodium Chloride 50 ml @ 100 mls/hr Q24H IVPB Last administered on 04/05/19at 16:22; Admin Dose 100 MLS/HR; Start 04/05/19 at 15:30 Fluconazole (Diflucan) 100 mg DAILY PO Last administered on 04/05/19at 15:13; A dmin Dose 100 MG; Start 04/05/19 at 14:00 Morphine Sulfate (morphine) 2 mg Q6H PRN IV SEVERE PAIN LEVEL 7-10; Start 04/05/19 at 16:30 JOSE RAUL ANDREWS MD April 05, 2019 17:04
--- NOTE | 2019-04-05 18:16 | PN ---
DATE: 04/05/2019 SUBJECTIVE: The patient was experiencing brief chest pain this morning. This afternoon, an EKG was done at 3:00 p.m. which has repolarization abnormality suggestive of ischemia diffusely. Looking at previous EKG, I do not see any change. This is not new. Consider consultation with Cardiology. PHYSICAL EXAMINATION: VITAL SIGNS: Temperature ____, pulse 78, respirations 16, blood pressure 142/61, saturation 100%. GENERAL: No acute distress, pale. CARDIOVASCULAR: S1, S2, regular rate. LUNGS: Clear. ABDOMEN: Soft, nontender. EXTREMITIES: No clubbing, +1 edema. DIAGNOSTIC DATA: White count jumped slightly to 10.5, hemoglobin 8.2, hematocrit 25, platelet count of 206 with normal differential. Chemistry: Sodium 134, potassium 3.8, chloride 97, bicarbonate 20, BUN is 99, creatinine 2.18 and glucose of 166. Troponin was requested, awaiting results. Chest x-r ay was ordered as well which showed left jugular tunneled dialysis catheter in place, cardiomegaly wi th increased lung congestion and edema with ____. MEDICATIONS: 1. Morphine p.r.n. 2. Merrem, was started on antibiotics empirically today due to a temperature of 99.8. 3. Diflucan. 4. Accu-Cheks. 5. Vitamin C. 6. Folic acid. 7. Tradjenta. 8. Norvasc. 9. Colace. 10. Lopressor. 11. Lipitor. 12. Ativan. 13. Tylenol. 14. Hypoglycemia protocol. 15. Ferrous sulfate. 16. Zyprexa 17. Prevacid. 18. Epogen. ASSESSMENT AND PLAN: This is an 83-year-old unfortunate [place] female with end-stage renal disease , vascular dementia, hypertension, diabetes mellitus, anemia, status post treatment for bacteremia, p neumonia and urinary tract infection, now again with low-grade fever and complaining of chest pain. 1. Chest pain. We will obtain EKG. It was noted no change. We will obtain a troponin. Continue C ardiology eval. Not a great candidate for intervention due to patient's overall condition. Not a ca ndidate for blood thinners due to need for transfusion and possible occult bleeding. 2. Cardiovascular. Continue blood pressure control. 3. Low-grade fever again, now back empirically with Tylenol, Merrem and Diflucan. Follow up urine r esults and cultures. 4. Anemia. Continue Epogen, iron supplement. Monitor hemoglobin and hematocrit levels. 5. End-stage renal disease. Again noted elevated BUN, which may suggest an inadequate dialysis. Fo llow up electrolytes. 6. Psychiatric disorder. Resume Zyprexa. Mood appears to be stable. The patient is DNR with poor long-term prognosis. 7. Diabetes mellitus on Tradjenta and Lantus. 8. Malnutrition and dysphagia on G-tube feeding at 30 mL an hour. 9. Continue to monitor closely. The patient remained with 1:1 sitter due to risk of fall. Continue to monitor labs daily. We will follow. Dictated By: DYLON HULL/MADAN Conf#: [id number] DID#: [id number]
[2019-04-05 19:19] VITALS: BP 148/59; PULSE 75; RESP 18
[2019-04-05] MEDS: ATORVASTATIN 40 MG TAB GTB SCH (21:35)
[2019-04-06] VITALS (16 sets, daily range): BP systolic 84–136; BP diastolic 36–113; PULSE 71–104; RESP 15–18
[2019-04-06] MEDS: ALBUTEROL/IPRATROPIUM (NEB) 3 ML AMP HHN SCH ×6 (01:00→21:00)
[2019-04-06] MEDS: LANSOPRAZOLE 30 MG CAP GTB SCH ×2 (05:11→17:19)
[2019-04-06] MEDS: ACCU-CHEK XX SCH ×2 (08:17→20:52)
[2019-04-06] MEDS: DOCUSATE SODIUM 10 MG/ML (10ML CUP) GTB SCH ×2 (09:10→20:43)
[2019-04-06] MEDS: FERROUS SULFATE 60 MG/ML 5ML CUP GTB SCH ×2 (09:10→20:43)
[2019-04-06] MEDS: LINAGLIPTIN 5 MG TABLET PO SCH (09:10)
[2019-04-06] MEDS: FLUCONAZOLE 100 MG TAB PO SCH (09:10)
[2019-04-06] MEDS: ASCORBIC ACID 500 MG TAB GTB SCH (09:10)
[2019-04-06] MEDS: FOLIC ACID 1 MG TAB GTB SCH (09:10)
[2019-04-06] MEDS: OLANZAPINE 2.5 MG TAB GTB SCH (09:10)
[2019-04-06] MEDS: AMLODIPINE 5 MG TAB GTB SCH ×2 (09:11→20:43)
[2019-04-06] MEDS: METOPROLOL 50 MG TAB GTB SCH ×2 (09:11→21:00)
--- NOTE | 2019-04-06 10:42 | CONS ---
Assessment/Plan Assessment/Plan Assessment/Plan (Daily) . End-stage renal disease on hemodialysis. 2. Anemia of chronic disease 3. hx Urinary tract infection. 4. Hypertension. 5. Dementia. 6. Diabetes mellitus type II. 7. Diastolic heart failure. 8. Moderate protein energy malnutrition with cachexia. 9. Osteoarthritis. 10. GT status 11 fevers Assessment/Plan (Daily) -c/w HD, sp hd today, hd was delayed to this am due to scheduling issues; spoke to Lokesh SOTELO -send blood cultures from [facility], back on abx - will do HD MWF - [facility] Continue with epogen 4000 Consultation Date/Type/Reason Admit Date/Time Feb 19, 2019 at 01:01 Initial Consult Date Requesting Provider: JOSE RAUL ANDREWS MD Date/Time of Note DATE: 04/06/19 TIME: 10:40 24 HR Interval Summary Free Text/Dictation hd was done early this am du eto scheduling issues Exam/Review of Systems Exam Vitals Vital Signs Date Temp Pulse Resp B/P (MAP) Pulse Ox O2 O2 Flow FiO2 Time Delivery Rate 04/06/19 80 18 130/60 Room Air 09:17 (83) 04/06/19 98.6 93 07:20 04/05/19 21 21:12 Intake and Output 04/05/19 04/05/19 04/06/19 1515:00 23:00 07:00 IntakeIntake Total 50 ml OutputOutput Total 0 ml BalanceBalance 50 ml 0 ml Exam left chest Perm cath Constitutional: alert Head: normocephalic Eyes: nl conjunctiva Neck: supple Respiratory: diminished breath sounds Cardiovascular: regular rate and rhythm Gastrointestinal: surgical scars, other (GT) Musculoskeletal: muscle weakness Additional Comments Results Result Diagram: 04/06/19 0644 04/06/19 0644 Results 24hrs Laboratory Tests Test 04/05/19 16:31 04/05/19 21:32 04/06/19 06:44 04/06/19 08:16 Troponin I < 0.012 Bedside Glucose 158 211 White Blood Count 11.1 H Red Blood Count 3.23 L Hemoglobin 8.6 L Hematocrit 26.2 L Mean Corpuscular 81.1 L Volume Mean Corpuscular 26.6 L Hemoglobin Mean Corpuscular 32.8 Hemoglobin Concent Red Cell 15.2 H Distribution Width Platelet Count 239 Mean Platelet Volume 12.3 H Immature 0.500 H Granulocytes % Neutrophils % 79.1 H Lymphocytes % 9.5 L Monocytes % 8.5 Eosinophils % 2.1 Basophils % 0.3 Nucleated Red Blood 0.0 Cells % Immature 0.050 H Granulocytes # Neutrophils # 8.8 H Lymphocytes # 1.1 Monocytes # 0.9 Eosinophils # 0.2 Basophils # 0.0 Nucleated Red Blood 0.0 Cells # Sodium Level 138 Potassium Level 3.6 Chloride Level 100 Carbon Dioxide Level 31 Anion Gap 7 Blood Urea Nitrogen 58 #H Creatinine 1.26 H Est Glomerular Filtrat Rate mL/min Glucose Level 147 Calcium Level 8.6 Phosphorus Level 1.9 #L Magnesium Level 2.3 Total Bilirubin 0.6 Direct Bilirubin 0.00 Indirect Bilirubin 0.6 Aspartate Amino 30 Transf (AST/SGOT) Alanine 22 Aminotransferase (AL T/SGPT) Alkaline Phosphatase 196 H Total Protein 7.7 # Albumin 3.4 Globulin 4.30 H Albumin/Globulin 0.79 Ratio Medications Medication Current Medications Epoetin Michael-epbx (Retacrit (Esrd)) 4,000 unit MoWeFr@1700 SC Last administered on 04/04/19at 17:36; Admin Dose 4,000 UNIT; Start 02/28/19 at 17:00 Olanzapine (Zyprexa) 2.5 mg DAILY GTB Last administered on 04/06/19 09:10; Admin Dose 2.5 MG; Start 03/01/19 at 09:00 Lansoprazole (Prevacid) 30 mg BID@0600,1800 GTB Last administered on 04/06/19 05:11; Admin Dose 30 MG; Start 02/28/19 at 18:00 Ferrous Sulfate (Feosol Liquid Cup) 300 mg BID GTB Last administered on 04/06/19 09:10; Admin Dose 300 MG; Start 03/08/19 at 09:00 Albuterol/ Ipratropium (Duoneb) 3 ml Q4H RESP THERAPY HHN Last administered on 04/05/19at 21:12; Admin Dose 3 ML; Start 03/12/19 at 10:00 Albuterol/ Ipratropium (Duoneb) 3 ml Q2H RESP THERAPY PRN HHN SHORTNESS OF BREATH; Start 03/12/19 at 10:00 Miscellaneous Information 1 ea NOTE XX ; Start 03/13/19 at 16:30 Glucose (Glutose) 15 gm Q15M PRN PO DECREASED GLUCOSE; Start 03/13/19 at 16:30 Glucose (Glutose) 22.5 gm Q15M PRN PO DECREASED GLUCOSE; Start 03/13/19 at 16:30 Dextrose (D50w Syringe) 25 ml Q15M PRN IV DECREASED GLUCOSE; Start 03/13/19 at 16:30 Dextrose (D50w Syringe) 50 ml Q15M PRN IV DECREASED GLUCOSE; Start 03/13/19 at 16:30 Glucagon (Glucagen) 1 mg Q15M PRN IM DECREASED GLUCOSE; Start 03/13/19 at 16:30 Glucose (Glutose) 15 gm Q15M PRN BUCCAL DECREASED GLUCOSE; Start 03/13/19 at 16:30 Lorazepam (Ativan) 0.5 mg QID PRN GTB ANXIETY Last administered on 04/04/19at 21:43; Admin Dose 0.5 MG; Start 03/23/19 at 20:00 Acetaminophen (Tylenol Liquid) 650 mg Q4H PRN GTB MILD PAIN(1-3)OR ELEVATED TEMP Last administered on 04/05/19 15:13; Admin Dose 650 MG; Start 03/23/19 at 20:00 Amlodipine Besylate (Norvasc) 5 mg BID GTB Last administered on 04/06/19 09:11; Admin Dose 5 MG; Start 03/26/19 at 21:00 Ascorbic Acid (Vitamin C) 500 mg DAILY GTB Last administered on 04/06/19 09:10; Admin Dose 500 MG; Start 03/27/19 at 09:00 Docusate Sodium (Colace Liquid Cup) 100 mg BID GTB Last administered on 04/06/19 at 09:10; Admin Dose 100 MG; Start 03/26/19 at 21:00 Folic Acid (Folic Acid) 1 mg DAILY GTB Last administered on 04/06/19 09:10; Admin Dose 1 MG; Start 03/27/19 at 09:00 Linagliptin (Tradjenta) 5 mg DAILY PO Last administered on 04/06/19 09:10; Admin Dose 5 MG; Start 03/27/19 at 09:00 Metoprolol Tartrate (Lopressor) 50 mg BID GTB Last administered on 04/06/19 09:11; Admin Dose 50 MG; Start 03/26/19 at 21:00 Atorvastatin Calcium (Lipitor) 40 mg HS GTB Last administered on 04/05/19at 21:35; Admin Dose 40 MG; Start 03/26/19 at 21:00 Diagnostic Test (Pha) (Accu-Chek) 1 ea Q12 XX Last administered on 04/06/19at 08:17; Admin Dose 1 EA; Start 03/28/19 at 20:00 Meropenem/Sodium Chloride 50 ml @ 100 mls/hr Q24H IVPB Last administered on 04/05/19at 16:22; Admin Dose 100 MLS/HR; Start 04/05/19 at 15:30 Fluconazole (Diflucan) 100 mg DAILY PO Last administered on 04/06/19at 09:10; Admin Dose 100 MG; Start 04/05/19 at 14:00 Morphine Sulfate (morphine) 2 mg Q6H PRN IV SEVERE PAIN LEVEL 7-10; Start 04/05/19 at 16:30 JOSE RAUL ANDREWS MD April 06, 2019 10:42
--- NOTE | 2019-04-06 12:43 | CONS ---
Assessment/Plan Assessment/Plan Hospital Course (Demo Recall) Afebrile, looks comfortable. WBC today 11.1 with neutrophils 79.1 Blood and urine cultures pending Antimicrobials: Meropenem, fluconazole Indwelling: Left subclavian permacath, PEG Physical examination: This is a chronically ill-appearing wasted elderly woman who is in no distress. Head atraumatic normocephalic. Neck is supple. Chest rise symmetrical patient is mildly tachypneic with expiratory wheezes. Heart: S1-S2, tachycardic. Abdomen soft bowel sounds present. Extremities without cyanosis edema. Assessment: 1. Systemic inflammatory response syndrome with low-grade fevers, rule out aspiration versus recurrent UTI 2. Status post recurrent UTI and bacteremia 4. End-stage renal disease, hemodialysis dependent 5. Anemia 6. 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 Plan: Clinically unchanged, add vancomycin, continue antibiotics, await for final cultures Consultation Date/Type/Reason Admit Date/Time Feb 19, 2019 at 01:01 Initial Consult Date Type of Consult id Requesting Provider: JOSE RAUL ANDREWS MD Date/Time of Note DATE: 04/06/19 TIME: 12:42 Exam/Review of Systems Exam Vitals Vital Signs Date Temp Pulse Resp B/P (MAP) Pulse Ox O2 O2 Flow FiO2 Time Delivery Rate 04/06/19 80 18 130/60 Room Air 09:17 (83) 04/06/19 98.6 93 07:20 04/05/19 21 21:12 Intake and Output 04/05/19 04/05/19 04/06/19 1515:00 23:00 07:00 IntakeIntake Total 50 ml OutputOutput Total 0 ml BalanceBalance 50 ml 0 ml Results Result Diagram: 04/06/19 0644 04/06/19 0644 Results 24hrs Laboratory Tests Test 04/05/19 16:31 04/05/19 21:32 04/06/19 06:44 04/06/19 08:16 Troponin I < 0.012 Bedside Glucose 158 211 White Blood Count 11.1 H Red Blood Count 3.23 L Hemoglobin 8.6 L Hematocrit 26.2 L Mean Corpuscular 81.1 L Volume Mean Corpuscular 26.6 L Hemoglobin Mean Corpuscular 32.8 Hemoglobin Concent Red Cell 15.2 H Distribution Width Platelet Count 239 Mean Platelet Volume 12.3 H Immature 0.500 H Granulocytes % Neutrophils % 79.1 H Lymphocytes % 9.5 L Monocytes % 8.5 Eosinophils % 2.1 Basophils % 0.3 Nucleated Red Blood 0.0 Cells % Immature 0.050 H Granulocytes # Neutrophils # 8.8 H Lymphocytes # 1.1 Monocytes # 0.9 Eosinophils # 0.2 Basophils # 0.0 Nucleated Red Blood 0.0 Cells # Sodium Level 138 Potassium Level 3.6 Chloride Level 100 Carbon Dioxide Level 31 Anion Gap 7 Blood Urea Nitrogen 58 #H Creatinine 1.26 H Est Glomerular Filtrat Rate mL/min Glucose Level 147 Calcium Level 8.6 Phosphorus Level 1.9 #L Magnesium Level 2.3 Total Bilirubin 0.6 Direct Bilirubin 0.00 Indirect Bilirubin 0.6 Aspartate Amino 30 Transf (AST/SGOT) Alanine 22 Aminotransferase (AL T/SGPT) Alkaline Phosphatase 196 H Total Protein 7.7 # Albumin 3.4 Globulin 4.30 H Albumin/Globulin 0.79 Ratio Medications Medication Current Medications Epoetin Michael-epbx (Retacrit (Esrd)) 4,000 unit MoWeFr@1700 SC Last administered on 04/04/19at 17:36; Admin Dose 4,000 UNIT; Start 02/28/19 at 17:00 Olanzapine (Zyprexa) 2.5 mg DAILY GTB Last administered on 04/06/19 09:10; Admin Dose 2.5 MG; Start 03/01/19 at 09:00 Lansoprazole (Prevacid) 30 mg BID@0600,1800 GTB Last administered on 04/06/19at 05:11; Admin Dose 30 MG; Start 02/28/19 at 18:00 Ferrous Sulfate (Feosol Liquid Cup) 300 mg BID GTB Last administered on 04/06/19at 09:10; Admin Dose 300 MG; Start 03/08/19 at 09:00 Albuterol/ Ipratropium (Duoneb) 3 ml Q4H RESP THERAPY HHN Last administered on 04/05/19at 21:12; Admin Dose 3 ML; Start 03/12/19 at 10:00 Albuterol/ Ipratropium (Duoneb) 3 ml Q2H RESP THERAPY PRN HHN SHORTNESS OF BREATH; Start 03/12/19 at 10:00 Miscellaneous Information 1 ea NOTE XX ; Start 03/13/19 at 16:30 Glucose (Glutose) 15 gm Q15M PRN PO DECREASED GLUCOSE; Start 03/13/19 at 16:30 Glucose (Glutose) 22.5 gm Q15M PRN PO DECREASED GLUCOSE; Start 03/13/19 at 16:30 Dextrose (D50w Syringe) 25 ml Q15M PRN IV DECREASED GLUCOSE; Start 03/13/19 at 16:30 Dextrose (D50w Syringe) 50 ml Q15M PRN IV DECREASED GLUCOSE; Start 03/13/19 at 16:30 Glucagon (Glucagen) 1 mg Q15M PRN IM DECREASED GLUCOSE; Start 03/13/19 at 16:30 Glucose (Glutose) 15 gm Q15M PRN BUCCAL DECREASED GLUCOSE; Start 03/13/19 at 16:30 Lorazepam (Ativan) 0.5 mg QID PRN GTB ANXIETY Last administered on 04/04/19 21:43; Admin Dose 0.5 MG; Start 03/23/19 at 20:00 Acetaminophen (Tylenol Liquid) 650 mg Q4H PRN GTB MILD PAIN(1-3)OR ELEVATED TEMP Last administered on 04/05/19 15:13; Admin Dose 650 MG; Start 03/23/19 at 20:00 Amlodipine Besylate (Norvasc) 5 mg BID GTB Last administered on 04/06/19 09:11; Admin Dose 5 MG; Start 03/26/19 at 21:00 Ascorbic Acid (Vitamin C) 500 mg DAILY GTB Last administered on 04/06/19 09:10; Admin Dose 500 MG; Start 03/27/19 at 09:00 Docusate Sodium (Colace Liquid Cup) 100 mg BID GTB Last administered on 04/06/19 09:10; Admin Dose 100 MG; Start 03/26/19 at 21:00 Folic Acid (Folic Acid) 1 mg DAILY GTB Last administered on 04/06/19 09:10; Admin Dose 1 MG; Start 03/27/19 at 09:00 Linagliptin (Tradjenta) 5 mg DAILY PO Last administered on 04/06/19 09:10; Admin Dose 5 MG; Start 03/27/19 at 09:00 Metoprolol Tartrate (Lopressor) 50 mg BID GTB Last administered on 04/06/19 09:11; Admin Dose 50 MG; Start 03/26/19 at 21:00 Atorvastatin Calcium (Lipitor) 40 mg HS GTB Last administered on 04/05/19at 21:35; Admin Dose 40 MG; Start 03/26/19 at 21:00 Diagnostic Test (Pha) (Accu-Chek) 1 ea Q12 XX Last administered on 04/06/19 08:17; Admin Dose 1 EA; Start 03/28/19 at 20:00 Meropenem/Sodium Chloride 50 ml @ 100 mls/hr Q24H IVPB Last administered on 04/05/19at 16:22; Admin Dose 100 MLS/HR; Start 04/05/19 at 15:30 Fluconazole (Diflucan) 100 mg DAILY PO Last administered on 04/06/19at 09:10; Admin Dose 100 MG; Start 04/05/19 at 14:00 Morphine Sulfate (morphine) 2 mg Q6H PRN IV SEVERE PAIN LEVEL 7-10; Start 04/05/19 at 16:30 PHYLICIA HOLCOMB NP April 06, 2019 12:43
[2019-04-06] MEDS ORDERED: VANCOMYCIN IV PER PHARMACY XX SCH (13:00)
[2019-04-06] MEDS: ACETAMINOPHEN 650MG/20.3ML CUP GTB PRN (13:37)
[2019-04-06] MEDS ORDERED: VANCOMYCIN 1 GM 250 ML IVPB SCH (14:30)
[2019-04-06] MEDS: MEROPENEM 500MG/50 ML (PMX) 50 ML IVPB SCH (16:45)
[2019-04-06] MEDS: EPOETIN ALFA-EPBX (ESRD) 4,000 UNIT/ML VIAL SC SCH (18:04)
--- NOTE | 2019-04-06 20:16 | PN ---
DATE: 04/06/2019 SUBJECTIVE: Patient seen. Noted a mild leukocytosis. Vancomycin was added to antibiotic regimen as we are concerned about UTI. PHYSICAL EXAMINATION: VITAL SIGNS: Temperature 98.5, pulse 73, respirations 18, blood pressure 105/49, saturating 100% on room air. GENERAL: Not in acute distress. The patient is resting today comfortably. CARDIOVASCULAR: S1, S2, regular rate. LUNGS: Clear. ABDOMEN: Soft, nontender. EXTREMITIES: No clubbing, cyanosis, or edema. LABORATORY DATA: White count slightly high at 11.1, hemoglobin 8.6, hematocrit 26, platelet count of 239, neutrophils 79%, lymphocytes 10%. Chemistry: Sodium 138, potassium 3.6, chloride 100, bicarbo rayray 31, BUN is 58, creatinine 1.26 and glucose of 147. Last glucose of 211. Phosphorus was slightl y low at 1.9. The patient's cultures including blood cultures, urine culture dated yesterday were al l negative so far, but are pending. Chest x-ray today also shows some improvement, showed left jugul ar tunneled dialysis catheter in place, cardiomegaly with decreased hilar congestion and perihilar ed geovanna since prior exam. MEDICATIONS: The patient's medications were all reviewed. They include the followin. Vancomycin IV dose per pharmacy. 2. Morphine sulfate p.r.n. 3. Merrem q.24 hours. 4. Diflucan 100 mg daily. 5. Vitamin C 500 mg daily. 6. Folic acid 1 mg daily. 7. Tradjenta 5 mg daily. 8. Norvasc 5 mg b.i.d. 9. Colace 100 b.i.d. 10. Metoprolol tartrate 50 b.i.d. 11. Lipitor 40 at bedtime. 12. Ativan p.r.n. 13. Tylenol p.r.n. 14. Hypoglycemia protocol p.r.n. 15. Ferrous sulfate 325 b.i.d. 16. Zyprexa 2.5 daily. 17. Prevacid 30 mg b.i.d. 18. Epogen as directed. ASSESSMENT AND PLAN: This is an 83 unfortunate [place] female with end-stage renal disease, vascula r dementia, hypertension, diabetes mellitus, anemia, status post treatment for bacteremia, pneumonia and urinary tract infection, now again with low grade fever and likely recurrent UTI as the patient s till makes urine despite being on dialysis. 1. Respiratory. Stable. O2 support as needed. No congestion. Chest x-ray is improved. 2. Cardiovascular. Continue above meds for hypertension. 3. Diabetes mellitus. Slightly high, possibly due to an infection. We will follow. Continue insul in with Lantus and Tradjenta. 4. Low grade fever. Empiric antibiotic, Merrem, Diflucan and vancomycin. ID following. We will fo llow up cultures and deescalate antibiotics if possible. 5. Anemia. Continue Epogen and iron supplements. Monitor H and H and transfuse p.r.n. 6. End-stage renal disease, dialysis per nephrology. 7. Psychiatric disorder, on Zyprexa. Mood appears to be stable. 8. Malnutrition and dysphagia, on G-tube feeding at 30 mL an hour. 9. Remains on 1:1 sitter due to risk of fall. 10. Maximum nutrition support. Observe. online services manager is assisting with placement. Her insurance w as contacted. We will follow. Dictated By: DYLON HULL/MADAN Conf#: [id number] DID#: [id number]
[2019-04-06] MEDS: ATORVASTATIN 40 MG TAB GTB SCH (20:43)
[2019-04-07] MEDS: ALBUTEROL/IPRATROPIUM (NEB) 3 ML AMP HHN SCH ×6 (01:00→20:19)
[2019-04-07 02:04] VITALS: BP 155/64; PULSE 87; RESP 15
[2019-04-07] MEDS: LANSOPRAZOLE 30 MG CAP GTB SCH ×2 (05:47→18:56)
[2019-04-07 07:45] VITALS: BP 130/57; PULSE 84; RESP 16
[2019-04-07] MEDS: DOCUSATE SODIUM 10 MG/ML (10ML CUP) GTB SCH ×2 (08:36→20:57)
[2019-04-07] MEDS: FERROUS SULFATE 60 MG/ML 5ML CUP GTB SCH ×2 (08:36→20:57)
[2019-04-07] MEDS: LINAGLIPTIN 5 MG TABLET PO SCH (08:37)
[2019-04-07] MEDS: ACCU-CHEK XX SCH ×2 (08:39→20:58)
[2019-04-07] MEDS: METOPROLOL 50 MG TAB GTB SCH ×2 (08:39→20:57)
[2019-04-07] MEDS: AMLODIPINE 5 MG TAB GTB SCH ×2 (08:40→20:57)
[2019-04-07] MEDS: ASCORBIC ACID 500 MG TAB GTB SCH (08:40)
[2019-04-07] MEDS: FLUCONAZOLE 100 MG TAB PO SCH (08:40)
[2019-04-07] MEDS: FOLIC ACID 1 MG TAB GTB SCH (08:40)
[2019-04-07] MEDS: OLANZAPINE 2.5 MG TAB GTB SCH (08:40)
--- NOTE | 2019-04-07 13:37 | CONS ---
Assessment/Plan Assessment/Plan Hospital Course (Demo Recall) Looks comfortable, no events Blood cx neg, urine culture +yeast Antimicrobials: Meropenem, fluconazole Vanco Indwelling: Left subclavian permacath, PEG Physical examination: This is a chronically ill-appearing wasted elderly woman who is in no distress. Head atraumatic normocephalic. Neck is supple. Chest rise symmetrical patient is mildly tachypneic with expiratory wheezes. Heart: S1-S2, tachycardic. Abdomen soft bowel sounds present. Extremities without cyanosis edema. Assessment: 1. Systemic inflammatory response syndrome with low-grade fevers, rule out aspiration versus recurrent UTI 2. Status post recurrent UTI and bacteremia 4. End-stage renal disease, hemodialysis dependent 5. Anemia 6. 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 Plan: Clinically unchanged, continue antibiotics, await for final cultures, f/u cbc and cxr in am Consultation Date/Type/Reason Admit Date/Time Feb 19, 2019 at 01:01 Initial Consult Date Type of Consult id Requesting Provider: JOSE RAUL ANDREWS MD Date/Time of Note DATE: 04/07/19 TIME: 13:36 Exam/Review of Systems Exam Vitals Vital Signs Date Temp Pulse Resp B/P (MAP) Pulse Ox O2 O2 Flow FiO2 Time Delivery Rate 04/07/19 75 18 97 21 13:33 04/07/19 98.6 130/57 Room Air 07:45 (81) Intake and Output 04/06/19 04/06/19 04/07/19 1515:00 23:00 07:00 IntakeIntake Total 960 ml 620 ml OutputOutput Total 2200 ml BalanceBalance -2200 ml 960 ml 620 ml Results Result Diagram: 04/06/19 0644 04/06/19 0644 Results 24hrs Laboratory Tests Test 04/06/19 20:43 04/07/19 08:38 Bedside Glucose 148 161 Medications Medication Current Medications Epoetin Michael-epbx (Retacrit (Esrd)) 4,000 unit MoWeFr@1700 SC Last administered on 04/06/19at 18:04; Admin Dose 4,000 UNIT; Start 02/28/19 at 17:00 Olanzapine (Zyprexa) 2.5 mg DAILY GTB Last administered on 04/07/19at 08:40; Admin Dose 2.5 MG; Start 03/01/19 at 09:00 Lansoprazole (Prevacid) 30 mg BID@0600,1800 GTB Last administered on 04/07/19 05:47; Admin Dose 30 MG; Start 02/28/19 at 18:00 Ferrous Sulfate (Feosol Liquid Cup) 300 mg BID GTB Last administered on 04/07/19 08:36; Admin Dose 300 MG; Start 03/08/19 at 09:00 Albuterol/ Ipratropium (Duoneb) 3 ml Q4H RESP THERAPY HHN Last administered on 04/07/19 13:31; Admin Dose 3 ML; Start 03/12/19 at 10:00 Albuterol/ Ipratropium (Duoneb) 3 ml Q2H RESP THERAPY PRN HHN SHORTNESS OF BREATH; Start 03/12/19 at 10:00 Miscellaneous Information 1 ea NOTE XX ; Start 03/13/19 at 16:30 Glucose (Glutose) 15 gm Q15M PRN PO DECREASED GLUCOSE; Start 03/13/19 at 16:30 Glucose (Glutose) 22.5 gm Q15M PRN PO DECREASED GLUCOSE; Start 03/13/19 at 16:30 Dextrose (D50w Syringe) 25 ml Q15M PRN IV DECREASED GLUCOSE; Start 03/13/19 at 16:30 Dextrose (D50w Syringe) 50 ml Q15M PRN IV DECREASED GLUCOSE; Start 03/13/19 at 16:30 Glucagon (Glucagen) 1 mg Q15M PRN IM DECREASED GLUCOSE; Start 03/13/19 at 16:30 Glucose (Glutose) 15 gm Q15M PRN BUCCAL DECREASED GLUCOSE; Start 03/13/19 at 16:30 Lorazepam (Ativan) 0.5 mg QID PRN GTB ANXIETY Last administered on 04/04/19at 21:43; Admin Dose 0.5 MG; Start 03/23/19 at 20:00 Acetaminophen (Tylenol Liquid) 650 mg Q4H PRN GTB MILD PAIN(1-3)OR ELEVATED TEM P Last administered on 04/06/19 13:37; Admin Dose 650 MG; Start 03/23/19 at 20:00 Amlodipine Besylate (Norvasc) 5 mg BID GTB Last administered on 04/07/19 08:40; Admin Dose 5 MG; Start 03/26/19 at 21:00 Ascorbic Acid (Vitamin C) 500 mg DAILY GTB Last administered on 04/07/19 08:40; Admin Dose 500 MG; Start 03/27/19 at 09:00 Docusate Sodium (Colace Liquid Cup) 100 mg BID GTB Last administered on 04/07/19 08:36; Admin Dose 100 MG; Start 03/26/19 at 21:00 Folic Acid (Folic Acid) 1 mg DAILY GTB Last administered on 04/07/19 08:40; Admin Dose 1 MG; Start 03/27/19 at 09:00 Linagliptin (Tradjenta) 5 mg DAILY PO Last administered on 04/07/19 08:37; Admin Dose 5 MG; Start 03/27/19 at 09:00 Metoprolol Tartrate (Lopressor) 50 mg BID GTB Last administered on 04/07/19 08:39; Admin Dose 50 MG; Start 03/26/19 at 21:00 Atorvastatin Calcium (Lipitor) 40 mg HS GTB Last administered on 04/06/19 20:43; Admin Dose 40 MG; Start 03/26/19 at 21:00 Diagnostic Test (Pha) (Accu-Chek) 1 ea Q12 XX Last administered on 04/07/19 08:39; Admin Dose 1 EA; Start 03/28/19 at 20:00 Meropenem/Sodium Chloride 50 ml @ 100 mls/hr Q24H IVPB Last administered on 04/06/19 16:45; Admin Dose 100 MLS/HR; Start 04/05/19 at 15:30 Fluconazole (Diflucan) 100 mg DAILY PO Last administered on 04/07/19 08:40; A dmin Dose 100 MG; Start 04/05/19 at 14:00 Morphine Sulfate (morphine) 2 mg Q6H PRN IV SEVERE PAIN LEVEL 7-10; Start 04/05/19 at 16:30 Vancomycin HCl (Vanco Iv Per Pharmacy) VANCOMYCIN PER PHARMACY PER PROTOCOL XX ; Start 04/06/19 at 13:00 PHYLICIA HOLCOMB NP April 07, 2019 13:37
[2019-04-07 13:56] VITALS: BP 126/58; PULSE 88; RESP 16
[2019-04-07] MEDS: MEROPENEM 500MG/50 ML (PMX) 50 ML IVPB SCH (15:15)
--- NOTE | 2019-04-07 15:25 | CONS ---
Assessment/Plan Assessment/Plan Assessment/Plan (Daily) 1 End-stage renal disease on hemodialysis. 2. Anemia of chronic disease 3. hx Urinary tract infection. 4. Hypertension. 5. Dementia. 6. Diabetes mellitus type II. 7. Diastolic heart failure. 8. Moderate protein energy malnutrition with cachexia. 9. Osteoarthritis. 10. GT status 11 fevers Assessment/Plan (Daily) - cw hD MWF, hd tmw -pending blood cultures from permacat, back on abx Continue with epogen 4000 Consultation Date/Type/Reason Admit Date/Time Feb 19, 2019 at 01:01 Initial Consult Date Requesting Provider: JOSE RAUL ANDREWS MD Date/Time of Note DATE: 04/07/19 TIME: 15:23 24 HR Interval Summary Free Text/Dictation no acute events HD tmw Exam/Review of Systems Exam Vitals Vital Signs Date Temp Pulse Resp B/P (MAP) Pulse Ox O2 O2 Flow FiO2 Time Delivery Rate 04/07/19 98.5 88 16 126/58 100 Room Air 13:56 (80) 04/07/19 21 13:33 Intake and Output 04/06/19 04/06/19 04/07/19 1515:00 23:00 07:00 IntakeIntake Total 960 ml 620 ml OutputOutput Total 2200 ml BalanceBalance -2200 ml 960 ml 620 ml Exam left chest Perm cath Constitutional: alert Head: normocephalic Eyes: nl conjunctiva Neck: supple Respiratory: diminished breath sounds Cardiovascular: regular rate and rhythm Gastrointestinal: surgical scars, other (GT) Musculoskeletal: muscle weakness Additional Comments Results Result Diagram: 04/06/19 0644 04/06/19 0644 Results 24hrs Laboratory Tests Test 04/06/19 20:43 04/07/19 08:38 Bedside Glucose 148 161 Medications Medication Current Medications Epoetin Michael-epbx (Retacrit (Esrd)) 4,000 unit MoWeFr@1700 SC Last administered on 04/06/19at 18:04; Admin Dose 4,000 UNIT; Start 02/28/19 at 17:00 Olanzapine (Zyprexa) 2.5 mg DAILY GTB Last administered on 04/07/19at 08:40; Admin Dose 2.5 MG; Start 03/01/19 at 09:00 Lansoprazole (Prevacid) 30 mg BID@0600,1800 GTB Last administered on 04/07/19 05:47; Admin Dose 30 MG; Start 02/28/19 at 18:00 Ferrous Sulfate (Feosol Liquid Cup) 300 mg BID GTB Last administered on 04/07/19 08:36; Admin Dose 300 MG; Start 03/08/19 at 09:00 Albuterol/ Ipratropium (Duoneb) 3 ml Q4H RESP THERAPY HHN Last administered on 04/07/19 13:31; Admin Dose 3 ML; Start 03/12/19 at 10:00 Albuterol/ Ipratropium (Duoneb) 3 ml Q2H RESP THERAPY PRN HHN SHORTNESS OF BREATH; Start 03/12/19 at 10:00 Miscellaneous Information 1 ea NOTE XX ; Start 03/13/19 at 16:30 Glucose (Glutose) 15 gm Q15M PRN PO DECREASED GLUCOSE; Start 03/13/19 at 16:30 Glucose (Glutose) 22.5 gm Q15M PRN PO DECREASED GLUCOSE; Start 03/13/19 at 16:30 Dextrose (D50w Syringe) 25 ml Q15M PRN IV DECREASED GLUCOSE; Start 03/13/19 at 16:30 Dextrose (D50w Syringe) 50 ml Q15M PRN IV DECREASED GLUCOSE; Start 03/13/19 at 16:30 Glucagon (Glucagen) 1 mg Q15M PRN IM DECREASED GLUCOSE; Start 03/13/19 at 16:30 Glucose (Glutose) 15 gm Q15M PRN BUCCAL DECREASED GLUCOSE; Start 03/13/19 at 16: 30 Lorazepam (Ativan) 0.5 mg QID PRN GTB ANXIETY Last administered on 04/04/19at 21:43; Admin Dose 0.5 MG; Start 03/23/19 at 20:00 Acetaminophen (Tylenol Liquid) 650 mg Q4H PRN GTB MILD PAIN(1-3)OR ELEVATED TEMP Last administered on 04/06/19 13:37; Admin Dose 650 MG; Start 03/23/19 at 20:00 Amlodipine Besylate (Norvasc) 5 mg BID GTB Last administered on 04/07/19 08:40; Admin Dose 5 MG; Start 03/26/19 at 21:00 Ascorbic Acid (Vitamin C) 500 mg DAILY GTB Last administered on 04/07/19 08:40; Admin Dose 500 MG; Start 03/27/19 at 09:00 Docusate Sodium (Colace Liquid Cup) 100 mg BID GTB Last administered on 04/07/19 08:36; Admin Dose 100 MG; Start 03/26/19 at 21:00 Folic Acid (Folic Acid) 1 mg DAILY GTB Last administered on 04/07/19 08:40; Admin Dose 1 MG; Start 03/27/19 at 09:00 Linagliptin (Tradjenta) 5 mg DAILY PO Last administered on 04/07/19 08:37; Admin Dose 5 MG; Start 03/27/19 at 09:00 Metoprolol Tartrate (Lopressor) 50 mg BID GTB Last administered on 04/07/19 08:39; Admin Dose 50 MG; Start 03/26/19 at 21:00 Atorvastatin Calcium (Lipitor) 40 mg HS GTB Last administered on 04/06/19 20:43; Admin Dose 40 MG; Start 03/26/19 at 21:00 Diagnostic Test (Pha) (Accu-Chek) 1 ea Q12 XX Last administered on 04/07/19 08:39; Admin Dose 1 EA; Start 03/28/19 at 20:00 Meropenem/Sodium Chloride 50 ml @ 100 mls/hr Q24H IVPB Last administered on 04/07/19 15:15; Admin Dose 100 MLS/HR; Start 04/05/19 at 15:30 Fluconazole (Diflucan) 100 mg DAILY PO Last administered on 04/07/19 08:40; Admin Dose 100 MG; Start 04/05/19 at 14:00 Morphine Sulfate (morphine) 2 mg Q6H PRN IV SEVERE PAIN LEVEL 7-10; Start 04/05/19 at 16:30 Vancomycin HCl (Vanco Iv Per Pharmacy) VANCOMYCIN PER PHARMACY PER PROTOCOL XX ; Start 04/06/19 at 13:00 Miscellaneous Information (*Rx Drug Level Order Reminder*) VANCOMYCIN RANDOM LEVEL 5... 0500 ONCE XX ; Start 04/08/19 at 05:00; Stop 04/08/19 at 05:01 JOSE RAUL ANDREWS MD April 07, 2019 15:25
[2019-04-07 19:38] VITALS: BP 138/63; PULSE 86; RESP 17
[2019-04-07] MEDS: ATORVASTATIN 40 MG TAB GTB SCH (20:57)
--- NOTE | 2019-04-07 21:33 | PN ---
DATE: 04/07/2019 The patient appears to be comfortable lying in bed comfortably. The patient has a 1:1 sitter. The p atient to be dialyzed tomorrow. The patient remains empirically on antibiotics as we are waiting for the cultures to come out, but today the urine culture did come back for yeast, greater than 100,000. PHYSICAL EXAMINATION: VITAL SIGNS: Temperature is 98.5, pulse 88, respiration 16, blood pressure is 126/58, O2 saturation 100% on room air. GENERAL: No acute distress. Normocephalic, atraumatic. CARDIOVASCULAR: S1, S2, regular rate. LUNGS: Clear. ABDOMEN: Soft, nontender. EXTREMITIES: No clubbing, cyanosis or edema. LABORATORY DATA: White count 11.1, hemoglobin 10.6, hematocrit 26, platelet count 239. This was yes terday. Last glucose level 161 12/20/2018. No basic metabolic panel today. Again, urine cul ture on 04/05/2019 shows yeast, greater than 100,000. MEDICATIONS: 1. Vancomycin. 2. Morphine. 3. Merrem. 4. Diflucan. 5. Vitamin C. 6. Folic acid. 7. Tradjenta. 8. Norvasc. 9. Colace. 10. Lopressor. 11. Lipitor. 12. Ativan. 13. Tylenol. 14. Hypoglycemia protocol. 15. Ipratropium. 16. Ferrous sulfate. 17. Zyprexa. 18. Prevacid. 19. Epogen. ASSESSMENT AND PLAN: This is an 83-year-old [place] female with end-stage renal disease, vascular d ementia, hypertension, diabetes mellitus, anemia, status post treatment for bacteremia, pneumonia and UTI, now again with low grade fever, likely due to recurrent UTI. 1. Respiratory. O2 support as needed. Chest x-ray shows improvement. I doubt pneumonia. 2. Cardiovascular. Vitals are stable. 3. Diabetes mellitus. Glucose levels are slightly higher on Lantus and Tradjenta. Observe. Likely due to infectious process. 4. Low grade fever with evidence of UTI organism yeast, follow up cultures. Remains on Diflucan for now. May need to put her on Cancidas. 5. Anemia. Continue Epogen and iron supplements. Monitor H and H, transfuse p.r.n. Follow up CBC tomorrow. 6. End-stage renal disease. Next dialysis tomorrow. Monitor electrolytes. 7. Psychiatric disorder. Remains on Zyprexa. Mood is stable. 8. Malnutrition dysphagia. Continue G-tube feeding at 30 mL an hour. I believe her weight remained stable. 9. Remains on 1:1 sitter due to risk of fall. 10. manager cardiac is assisting with placement. Dictated By: DYLON HULL/MADAN Conf#: [id number] DID#: [id number]
[2019-04-08] VITALS (16 sets, daily range): BP systolic 86–135; BP diastolic 36–62; PULSE 82–93; RESP 16–19
[2019-04-08] MEDS: ALBUTEROL/IPRATROPIUM (NEB) 3 ML AMP HHN SCH ×5 (01:00→21:16)
[2019-04-08] MEDS: LANSOPRAZOLE 30 MG CAP GTB SCH ×2 (05:34→18:00)
[2019-04-08] MEDS: ACCU-CHEK XX SCH ×2 (09:00→20:44)
[2019-04-08] MEDS: AMLODIPINE 5 MG TAB GTB SCH ×2 (09:00→20:27)
[2019-04-08] MEDS: METOPROLOL 50 MG TAB GTB SCH ×2 (09:00→20:27)
--- NOTE | 2019-04-08 09:09 | CONS ---
Assessment/Plan Assessment/Plan Hospital Course (Demo Recall) 1. End-stage renal disease on hemodialysis. 2. Anemia of chronic disease 3. Urinary tract infection, now has yeast in urine. 4. Hypertension, controlled. 5. Dementia. 6. Diabetes mellitus type II. 7. Diastolic heart failure. 8. Moderate protein energy malnutrition with cachexia. 9. Osteoarthritis. 10. GT status 11. Had fever 3 days ago Assessment/Plan (Daily) - cw HD MWF, HD today -negative blood cultures from [facility], back on abx Continue with epogen 4000 -UA yeast Consultation Date/Type/Reason Admit Date/Time Feb 19, 2019 at 01:01 Initial Consult Date 02/19/2019 Type of Consult nephrology Requesting Provider: JOSE RAUL ANDREWS MD Date/Time of Note DATE: 04/08/19 TIME: 09:07 24 HR Interval Summary Free Text/Dictation alert, oriented 2 Exam/Review of Systems Exam Vitals Vital Signs Date Temp Pulse Resp B/P (MAP) Pulse Ox O2 O2 Flow FiO2 Time Delivery Rate 04/08/19 89 20 98 21 08:39 04/08/19 98.1 131/62 07:58 (85) 04/07/19 Room Air 19:38 Intake and Output 04/07/19 04/07/19 04/08/19 1414:59 22:59 06:59 IntakeIntake Total 50 ml 560 ml BalanceBalance 50 ml 560 ml Exam left chest Permcath Constitutional: alert, frail Neck: supple Respiratory: clear to auscultation, normal air movement Cardiovascular: regular rate and rhythm Gastrointestinal: soft, other (GT) Musculoskeletal: muscle weakness Results Result Diagram: 04/08/1951904/08/19519 Results 24hrs Laboratory Tests Test 04/07/19 21:01 04/08/19 05:20 Bedside Glucose 174 White Blood Count 8.0 # Red Blood Count 2.90 L Hemoglobin 7.6 L Hematocrit 23.8 L Mean Corpuscular Volume 82.1 Mean Corpuscular Hemoglobin 26.2 L Mean Corpuscular Hemoglobin Concent 31.9 L Red Cell Distribution Width 15.6 H Platelet Count 214 Mean Platelet Volume 12.8 H Immature Granulocytes % 0.800 H Neutrophils % 74.5 Lymphocytes % 11.7 L Monocytes % 10.3 Eosinophils % 2.4 Basophils % 0.3 Nucleated Red Blood Cells % 0.4 H Immature Granulocytes # 0.060 H Neutrophils # 5.9 Lymphocytes # 0.9 Monocytes # 0.8 Eosinophils # 0.2 Basophils # 0.0 Nucleated Red Blood Cells # 0.0 Sodium Level 135 Potassium Level 3.7 Chloride Level 100 Carbon Dioxide Level 24 Anion Gap 11 Blood Urea Nitrogen 96 #H Creatinine 2.44 #H Est Glomerular Filtrat Rate mL/min Glucose Level 166 Calcium Level 8.5 Phosphorus Level 3.5 Magnesium Level 2.5 Random Vancomycin Level 12.7 Medications Medication Current Medications Epoetin Michael-epbx (Retacrit (Esrd)) 4,000 unit MoWeFr@1700 SC Last administered on 04/06/19at 18:04; Admin Dose 4,000 UNIT; Start 02/28/19 at 17:00 Olanzapine (Zyprexa) 2.5 mg DAILY GTB Last administered on 04/07/19at 08:40; Admin Dose 2.5 MG; Start 03/01/19 at 09:00 Lansoprazole (Prevacid) 30 mg BID@0600,1800 GTB Last administered on 04/08/19at 05:34; Admin Dose 30 MG; Start 02/28/19 at 18:00 Ferrous Sulfate (Feosol Liquid Cup) 300 mg BID GTB Last administered on 04/07/19at 20:57; Admin Dose 300 MG; Start 03/08/19 at 09:00 Albuterol/ Ipratropium (Duoneb) 3 ml Q4H RESP THERAPY HHN Last administered on 04/08/19at 08:39; Admin Dose 3 ML; Start 03/12/19 at 10:00 Albuterol/ Ipratropium (Duoneb) 3 ml Q2H RESP THERAPY PRN HHN SHORTNESS OF BREATH; Start 03/12/19 at 10:00 Miscellaneous Information 1 ea NOTE XX ; Start 03/13/19 at 16:30 Glucose (Glutose) 15 gm Q15M PRN PO DECREASED GLUCOSE; Start 03/13/19 at 16:30 Glucose (Glutose) 22.5 gm Q15M PRN PO DECREASED GLUCOSE; Start 03/13/19 at 16:30 Dextrose (D50w Syringe) 25 ml Q15M PRN IV DECREASED GLUCOSE; Start 03/13/19 at 16:30 Dextrose (D50w Syringe) 50 ml Q15M PRN IV DECREASED GLUCOSE; Start 03/13/19 at 16:30 Glucagon (Glucagen) 1 mg Q15M PRN IM DECREASED GLUCOSE; Start 03/13/19 at 16:30 Glucose (Glutose) 15 gm Q15M PRN BUCCAL DECREASED GLUCOSE; Start 03/13/19 at 16:30 Lorazepam (Ativan) 0.5 mg QID PRN GTB ANXIETY Last administered on 04/04/19 21:43; Admin Dose 0.5 MG; Start 03/23/19 at 20:00 Acetaminophen (Tylenol Liquid) 650 mg Q4H PRN GTB MILD PAIN(1-3)OR ELEVATED TEMP Last administered on 04/06/19 13:37; Admin Dose 650 MG; Start 03/23/19 at 20:00 Amlodipine Besylate (Norvasc) 5 mg BID GTB Last administered on 04/07/19 20:57; Admin Dose 5 MG; Start 03/26/19 at 21:00 Ascorbic Acid (Vitamin C) 500 mg DAILY GTB Last administered on 04/07/19 08:40; Admin Dose 500 MG; Start 03/27/19 at 09:00 Docusate Sodium (Colace Liquid Cup) 100 mg BID GTB Last administered on 04/07/19 20:57; Admin Dose 100 MG; Start 03/26/19 at 21:00 Folic Acid (Folic Acid) 1 mg DAILY GTB Last administered on 04/07/19 08:40; Admin Dose 1 MG; Start 03/27/19 at 09:00 Linagliptin (Tradjenta) 5 mg DAILY PO Last administered on 04/07/19 08:37; Admin Dose 5 MG; Start 03/27/19 at 09:00 Metoprolol Tartrate (Lopressor) 50 mg BID GTB Last administered on 04/07/19 20:57; Admin Dose 50 MG; Start 03/26/19 at 21:00 Atorvastatin Calcium (Lipitor) 40 mg HS GTB Last administered on 04/07/19 20:57; Admin Dose 40 MG; Start 03/26/19 at 21:00 Diagnostic Test (Pha) (Accu-Chek) 1 ea Q12 XX Last administered on 04/07/19 08:39; Admin Dose 1 EA; Start 03/28/19 at 20:00 Meropenem/Sodium Chloride 50 ml @ 100 mls/hr Q24H IVPB Last administered on 04/07/19at 15:15; Admin Dose 100 MLS/HR; Start 04/05/19 at 15:30 Fluconazole (Diflucan) 100 mg DAILY PO Last administered on 04/07/19at 08:40; Admin Dose 100 MG; Start 04/05/19 at 14:00 Morphine Sulfate (morphine) 2 mg Q6H PRN IV SEVERE PAIN LEVEL 7-10; Start 04/05/19 at 16:30 Vancomycin HCl (Vanco Iv Per Pharmacy) VANCOMYCIN PER PHARMACY PER PROTOCOL XX ; Start 04/06/19 at 13:00 FLAVIO CLAYTON April 08, 2019 09:09
[2019-04-08] MEDS: DOCUSATE SODIUM 10 MG/ML (10ML CUP) GTB SCH ×2 (13:00→20:26)
[2019-04-08] MEDS: FOLIC ACID 1 MG TAB GTB SCH (13:00)
[2019-04-08] MEDS: ASCORBIC ACID 500 MG TAB GTB SCH (13:00)
[2019-04-08] MEDS: FLUCONAZOLE 100 MG TAB PO SCH (13:02)
[2019-04-08] MEDS: FERROUS SULFATE 60 MG/ML 5ML CUP GTB SCH ×2 (13:02→20:26)
[2019-04-08] MEDS: OLANZAPINE 2.5 MG TAB GTB SCH (13:02)
--- NOTE | 2019-04-08 13:02 | CONS ---
Assessment/Plan Assessment/Plan Hospital Course (Demo Recall) No changes Blood cx neg, urine culture +yeast Antimicrobials: Meropenem, fluconazole Vanco Indwelling: Left subclavian permacath, PEG Physical examination: This is a chronically ill-appearing wasted elderly woman who is in no distress. Head atraumatic normocephalic. Neck is supple. Chest rise symmetrical patient is mildly tachypneic with expiratory wheezes. Heart: S1-S2, tachycardic. Abdomen soft bowel sounds present. Extremities without cyanosis edema. Assessment: 1. Systemic inflammatory response syndrome with low-grade fevers, rule out aspiration versus recurrent UTI 2. Status post recurrent UTI and bacteremia 4. End-stage renal disease, hemodialysis dependent 5. Anemia 6. 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 Plan: Clinically unchanged, no fevers, dc Vanco, continue antibiotics, f/u repeat cxr Consultation Date/Type/Reason Admit Date/Time Feb 19, 2019 at 01:01 Initial Consult Date Type of Consult id Requesting Provider: JOSE RAUL ANDREWS MD Date/Time of Note DATE: 04/08/19 TIME: 13:01 Exam/Review of Systems Exam Vitals Vital Signs Date Temp Pulse Resp B/P (MAP) Pulse Ox O2 O2 Flow FiO2 Time Delivery Rate 04/08/19 88 16 111/46 99 Room Air 12:35 (67) 04/08/19 21 08:39 04/08/19 98.1 07:58 Intake and Output 04/07/19 04/07/19 04/08/19 1515:00 23:00 07:00 IntakeIntake Total 50 ml 560 ml BalanceBalance 50 ml 560 ml Results Result Diagram: 04/08/19 0520 04/08/19 0520 Results 24hrs Laboratory Tests Test 04/07/19 21:01 04/08/19 05:20 04/08/19 09:07 Bedside Glucose 174 197 White Blood Count 8.0 # Red Blood Count 2.90 L Hemoglobin 7.6 L Hematocrit 23.8 L Mean Corpuscular Volume 82.1 Mean Corpuscular Hemoglobin 26.2 L Mean Corpuscular Hemoglobin Concent 31.9 L Red Cell Distribution Width 15.6 H Platelet Count 214 Mean Platelet Volume 12.8 H Immature Granulocytes % 0.800 H Neutrophils % 74.5 Lymphocytes % 11.7 L Monocytes % 10.3 Eosinophils % 2.4 Basophils % 0.3 Nucleated Red Blood Cells % 0.4 H Immature Granulocytes # 0.060 H Neutrophils # 5.9 Lymphocytes # 0.9 Monocytes # 0.8 Eosinophils # 0.2 Basophils # 0.0 Nucleated Red Blood Cells # 0.0 Sodium Level 135 Potassium Level 3.7 Chloride Level 100 Carbon Dioxide Level 24 Anion Gap 11 Blood Urea Nitrogen 96 #H Creatinine 2.44 #H Est Glomerular Filtrat Rate mL/min Glucose Level 166 Calcium Level 8.5 Phosphorus Level 3.5 Magnesium Level 2.5 Random Vancomycin Level 12.7 Medications Medication Current Medications Epoetin Michael-epbx (Retacrit (Esrd)) 4,000 unit MoWeFr@1700 SC Last administered on 04/06/19 18:04; Admin Dose 4,000 UNIT; Start 02/28/19 at 17:00 Olanzapine (Zyprexa) 2.5 mg DAILY GTB Last administered on 04/07/19 08:40; Admin Dose 2.5 MG; Start 03/01/19 at 09:00 Lansoprazole (Prevacid) 30 mg BID@0600,1800 GTB Last administered on 04/08/19 05:34; Admin Dose 30 MG; Start 02/28/19 at 18:00 Ferrous Sulfate (Feosol Liquid Cup) 300 mg BID GTB Last administered on 04/07/19at 20:57; Admin Dose 300 MG; Start 03/08/19 at 09:00 Albuterol/ Ipratropium (Duoneb) 3 ml Q4H RESP THERAPY HHN Last administered on 04/08/19at 08:39; Admin Dose 3 ML; Start 03/12/19 at 10:00 Albuterol/ Ipratropium (Duoneb) 3 ml Q2H RESP THERAPY PRN HHN SHORTNESS OF BREATH; Start 03/12/19 at 10:00 Miscellaneous Information 1 ea NOTE XX ; Start 03/13/19 at 16:30 Glucose (Glutose) 15 gm Q15M PRN PO DECREASED GLUCOSE; Start 03/13/19 at 16:30 Glucose (Glutose) 22.5 gm Q15M PRN PO DECREASED GLUCOSE; Start 03/13/19 at 16:30 Dextrose (D50w Syringe) 25 ml Q15M PRN IV DECREASED GLUCOSE; Start 03/13/19 at 16:30 Dextrose (D50w Syringe) 50 ml Q15M PRN IV DECREASED GLUCOSE; Start 03/13/19 at 16:30 Glucagon (Glucagen) 1 mg Q15M PRN IM DECREASED GLUCOSE; Start 03/13/19 at 16:30 Glucose (Glutose) 15 gm Q15M PRN BUCCAL DECREASED GLUCOSE; Start 03/13/19 at 16:30 Lorazepam (Ativan) 0.5 mg QID PRN GTB ANXIETY Last administered on 04/04/19 21:43; Admin Dose 0.5 MG; Start 03/23/19 at 20:00 Acetaminophen (Tylenol Liquid) 650 mg Q4H PRN GTB MILD PAIN(1-3)OR ELEVATED TEMP Last administered on 04/06/19 13:37; Admin Dose 650 MG; Start 03/23/19 at 20:00 Amlodipine Besylate (Norvasc) 5 mg BID GTB Last administered on 04/07/19 20:57; Admin Dose 5 MG; Start 03/26/19 at 21:00 Ascorbic Acid (Vitamin C) 500 mg DAILY GTB Last administered on 04/07/19 08:40; Admin Dose 500 MG; Start 03/27/19 at 09:00 Docusate Sodium (Colace Liquid Cup) 100 mg BID GTB Last administered on 04/07/19 20:57; Admin Dose 100 MG; Start 03/26/19 at 21:00 Folic Acid (Folic Acid) 1 mg DAILY GTB Last administered on 04/07/19 08:40; Admin Dose 1 MG; Start 03/27/19 at 09:00 Linagliptin (Tradjenta) 5 mg DAILY PO Last administered on 04/07/19 08:37; Admin Dose 5 MG; Start 03/27/19 at 09:00 Metoprolol Tartrate (Lopressor) 50 mg BID GTB Last administered on 04/07/19 20:57; Admin Dose 50 MG; Start 03/26/19 at 21:00 Atorvastatin Calcium (Lipitor) 40 mg HS GTB Last administered on 04/07/19 20:57; Admin Dose 40 MG; Start 03/26/19 at 21:00 Diagnostic Test (Pha) (Accu-Chek) 1 ea Q12 XX Last administered on 5/30/19at 08:39; Admin Dose 1 EA; Start 03/28/19 at 20:00 Meropenem/Sodium Chloride 50 ml @ 100 mls/hr Q24H IVPB Last administered on 04/07/19at 15:15; Admin Dose 100 MLS/HR; Start 04/05/19 at 15:30 Fluconazole (Diflucan) 100 mg DAILY PO Last administered on 04/07/19at 08:40; Admin Dose 100 MG; Start 04/05/19 at 14:00 Morphine Sulfate (morphine) 2 mg Q6H PRN IV SEVERE PAIN LEVEL 7-10; Start 04/05/19 at 16:30 Vancomycin HCl (Vanco Iv Per Pharmacy) VANCOMYCIN PER PHARMACY PER PROTOCOL XX ; Start 04/06/19 at 13:00 Vancomycin/Sodium Chloride 250 ml @ 125 mls/hr 1400 IVPB ; Start 04/08/19 at 14:00; Stop 04/08/19 at 19:00 PHYLICIA HOLCOMB NP April 08, 2019 13:02
[2019-04-08] MEDS: LINAGLIPTIN 5 MG TABLET PO SCH (13:09)
[2019-04-08] MEDS ORDERED: VANCOMYCIN 750 MG (PMX) 250 ML IVPB SCH (14:00)
[2019-04-08] MEDS: MEROPENEM 500MG/50 ML (PMX) 50 ML IVPB SCH (15:59)
[2019-04-08] MEDS: EPOETIN ALFA-EPBX (ESRD) 4,000 UNIT/ML VIAL SC SCH (17:40)
--- NOTE | 2019-04-08 18:56 | PN ---
DATE: 04/08/2019 SUBJECTIVE: The patient is seen, appears to be comfortable, no acute events, still with 1:1 sitter. Noted recommendation by ID and nephrology. PHYSICAL EXAMINATION: VITAL SIGNS: Temperature is 98.1, pulse 91, respiration is 16, blood pressure 111/46, saturation 99% on room air. GENERAL: No acute distress. HEENT: Normocephalic and atraumatic. CARDIOVASCULAR: S1, S2, regular rate. LUNGS: Clear. ABDOMEN: Soft. G-tube in place. EXTREMITIES: No clubbing, cyanosis, or edema. LABORATORY DATA: White count is 8, hemoglobin went down to 7.6, hematocrit 24, platelets 240, neutro phils 75% . Chemistry: Sodium 135, potassium 3.7, chloride 100, bicarbonate 24, BUN is 96, cre atinine 2.4, glucose 166. Urine culture did show Dominique glabrata on 04/05/2019, but blood cultures were negative. MEDICATIONS: 1. Morphine. 2. Merrem 3. Diflucan. 4. Accu-Chek. 5. Vitamin C. 6. Folic acid. 7. Tradjenta. 8. Norvasc. 9. Colace 10. Lopressor. 11. Lipitor. 12. Ativan. 13. Tylenol. 14. DuoNeb. 15. Ferrous sultfate. 16. Zyprexa 17. Prevacid. 18. Epogen. ASSESSMENT AND PLAN: This is an 83-year-old [place] female with end-stage renal disease, vascular d ementia, hypertension, diabetes mellitus, anemia, status post treatment for bacteremia, pneumonia and urinary tract infection, now with currently low grade fever likely to multidrug resistant yeast infe ction in the urine. 1. Respiratory. Continue O2 support. Chest x-ray last one showed improvement. Doubt pneumonia. 2. Cardiovascular. Vitals remain stable. 3. Diabetes mellitus. Continue Lantus and Tradjenta. 4. Low grade fever likely due to Dominique glabrata urinary tract infection. May consider switching D iflucan to Cancidas or amphotericin or Vfend. 5. Anemia, on Epogen and iron supplements. Monitor H and H. 6. End-stage renal disease, dialysis per team. Noted elevated BUN. I am concerned about possible b leeding, but currently, there is no such evidence. The patient is off blood thinners. 7. Psychiatric disorder. Remains on Zyprexa. Mood is stable. 8. Malnutrition and dysphagia. Continue G-tube feeding at 30 mL an hour. 9. Remain 1:1 sitter due to risk of fall. 10. dental manager is assisting with placement. 11. Overall mood appears to be stable, remains hemodynamically stable. We will follow. Dictated By: DYLON HULL/MADAN Conf#: [id number] DID#: [id number]
[2019-04-08] MEDS: ATORVASTATIN 40 MG TAB GTB SCH (20:26)
[2019-04-08] MEDS: CASPOFUNGIN 50 MG in SOD CHLORIDE 0.9% 250 ML IVPB SCH (20:35)
[2019-04-09] MEDS: ALBUTEROL/IPRATROPIUM (NEB) 3 ML AMP HHN SCH ×6 (01:00→21:00)
[2019-04-09 02:29] VITALS: BP 106/53; PULSE 87; RESP 16
[2019-04-09] MEDS: LANSOPRAZOLE 30 MG CAP GTB SCH ×3 (06:33→17:58)
[2019-04-09 07:42] VITALS: BP 112/56; PULSE 94; RESP 22
[2019-04-09] MEDS: FOLIC ACID 1 MG TAB GTB SCH (09:22)
[2019-04-09] MEDS: OLANZAPINE 2.5 MG TAB GTB SCH (09:22)
[2019-04-09] MEDS: DOCUSATE SODIUM 10 MG/ML (10ML CUP) GTB SCH ×2 (09:22→21:00)
[2019-04-09] MEDS: ASCORBIC ACID 500 MG TAB GTB SCH (09:23)
[2019-04-09] MEDS: LINAGLIPTIN 5 MG TABLET PO SCH (09:26)
[2019-04-09] MEDS: METOPROLOL 50 MG TAB GTB SCH ×2 (09:27→21:38)
[2019-04-09] MEDS: AMLODIPINE 5 MG TAB GTB SCH ×2 (09:27→21:38)
[2019-04-09] MEDS: ACCU-CHEK XX SCH ×2 (09:27→21:00)
--- NOTE | 2019-04-09 09:58 | CONS ---
Assessment/Plan Assessment/Plan Hospital Course (Demo Recall) 1. End-stage renal disease on hemodialysis. 2. Anemia of chronic disease 3. Urinary tract infection, now has yeast in urine. 4. Hypertension, controlled. 5. Dementia. 6. Diabetes mellitus type II. 7. Diastolic heart failure. 8. Moderate protein energy malnutrition with cachexia. 9. Osteoarthritis. 10. GT status 11. Had fever 3 days ago Assessment/Plan (Daily) - cw HD MWF, -negative blood cultures from [facility], back on abx -Continue with epogen 4000 -UA yeast -c/w phosp. binding agents Consultation Date/Type/Reason Admit Date/Time Feb 19, 2019 at 01:01 Initial Consult Date 02/19/2019 Type of Consult nephrology Requesting Provider: JOSE RAUL ANDREWS MD Date/Time of Note DATE: 04/09/19 TIME: 09:56 24 HR Interval Summary Free Text/Dictation sleeping Exam/Review of Systems Exam Vitals Vital Signs Date Temp Pulse Resp B/P (MAP) Pulse Ox O2 O2 Flow FiO2 Time Delivery Rate 04/09/19 84 18 100 21 09:11 04/09/19 99.5 112/56 07:42 (74) 04/08/19 Room Air 12:35 Intake and Output 04/08/19 04/08/19 04/09/19 1515:00 23:00 07:00 IntakeIntake Total 250 ml OutputOutput Total 1200 ml BalanceBalance -1200 ml 250 ml Exam left chest Perm cath, no bleeding Head: normocephalic Neck: supple Respiratory: clear to auscultation Cardiovascular: regular rate and rhythm Gastrointestinal: soft, other (GT) Musculoskeletal: muscle weakness Results Result Diagram: 04/08/1951904/08/19519 Results 24hrs Laboratory Tests Test 04/08/19 13:07 04/08/19 20:31 04/09/19 09:25 Bedside Glucose 186 153 137 Medications Medication Current Medications Epoetin Michael-epbx (Retacrit (Esrd)) 4,000 unit MoWeFr@1700 SC Last administered on 04/08/19at 17:40; Admin Dose 4,000 UNIT; Start 02/28/19 at 17:00 Olanzapine (Zyprexa) 2.5 mg DAILY GTB Last administered on 04/09/19at 09:22; Admin Dose 2.5 MG; Start 03/01/19 at 09:00 Lansoprazole (Prevacid) 30 mg BID@0600,1800 GTB Last administered on 04/09/19at 06:34; Admin Dose 30 MG; Start 02/28/19 at 18:00 Albuterol/ Ipratropium (Duoneb) 3 ml Q4H RESP THERAPY HHN Last administered on 04/09/19at 09:11; Admin Dose 3 ML; Start 03/12/19 at 10:00 Albuterol/ Ipratropium (Duoneb) 3 ml Q2H RESP THERAPY PRN HHN SHORTNESS OF BREATH; Start 03/12/19 at 10:00 Miscellaneous Information 1 ea NOTE XX ; Start 03/13/19 at 16:30 Glucose (Glutose) 15 gm Q15M PRN PO DECREASED GLUCOSE; Start 03/13/19 at 16:30 Glucose (Glutose) 22.5 gm Q15M PRN PO DECREASED GLUCOSE; Start 03/13/19 at 16:30 Dextrose (D50w Syringe) 25 ml Q15M PRN IV DECREASED GLUCOSE; Start 03/13/19 at 16:30 Dextrose (D50w Syringe) 50 ml Q15M PRN IV DECREASED GLUCOSE; Start 03/13/19 at 16:30 Glucagon (Glucagen) 1 mg Q15M PRN IM DECREASED GLUCOSE; Start 03/13/19 at 16:30 Glucose (Glutose) 15 gm Q15M PRN BUCCAL DECREASED GLUCOSE; Start 03/13/19 at 1 6:30 Lorazepam (Ativan) 0.5 mg QID PRN GTB ANXIETY Last administered on 04/04/19at 21:43; Admin Dose 0.5 MG; Start 03/23/19 at 20:00 Acetaminophen (Tylenol Liquid) 650 mg Q4H PRN GTB MILD PAIN(1-3)OR ELEVATED TEMP Last administered on 04/06/19at 13:37; Admin Dose 650 MG; Start 03/23/19 at 20:00 Amlodipine Besylate (Norvasc) 5 mg BID GTB Last administered on 04/09/19 09:27; Admin Dose 5 MG; Start 03/26/19 at 21:00 Ascorbic Acid (Vitamin C) 500 mg DAILY GTB Last administered on 04/09/19at 09:23; Admin Dose 500 MG; Start 03/27/19 at 09:00 Docusate Sodium (Colace Liquid Cup) 100 mg BID GTB Last administered on 04/09/19 09:22; Admin Dose 100 MG; Start 03/26/19 at 21:00 Folic Acid (Folic Acid) 1 mg DAILY GTB Last administered on 04/09/19 09:22; Admin Dose 1 MG; Start 03/27/19 at 09:00 Linagliptin (Tradjenta) 5 mg DAILY PO Last administered on 04/09/19 09:26; Admin Dose 5 MG; Start 03/27/19 at 09:00 Metoprolol Tartrate (Lopressor) 50 mg BID GTB Last administered on 04/09/19 09:27; Admin Dose 50 MG; Start 03/26/19 at 21:00 Atorvastatin Calcium (Lipitor) 40 mg HS GTB Last administered on 04/08/19 20:26; Admin Dose 40 MG; Start 03/26/19 at 21:00 Diagnostic Test (Pha) (Accu-Chek) 1 ea Q12 XX Last administered on 04/09/19 09:27; Admin Dose 1 EA; Start 03/28/19 at 20:00 Meropenem/Sodium Chloride 50 ml @ 100 mls/hr Q24H IVPB Last administered on 04/08/19 15:59; Admin Dose 100 MLS/HR; Start 04/05/19 at 15:30 Morphine Sulfate (morphine) 2 mg Q6H PRN IV SEVERE PAIN LEVEL 7-10; Start 04/05/19 at 16:30 Caspofungin 50 mg/ Sodium Chloride 250 ml @ 250 mls/hr Q24H IVPB Last administ ered on 04/08/19 20:35; Admin Dose 250 MLS/HR; Start 04/08/19 at 17:00 FLAVIO CLAYTON Apr 09, 2019 09:58
[2019-04-09 14:19] VITALS: BP 112/60; PULSE 81; RESP 25
[2019-04-09] MEDS ORDERED: LACTULOSE 30ML CUP PO ONE (14:30)
[2019-04-09] MEDS: MEROPENEM 500MG/50 ML (PMX) 50 ML IVPB SCH (14:52)
--- NOTE | 2019-04-09 15:01 | CONS ---
Consultation Date/Type/Reason Admit Date/Time Feb 19, 2019 at 01:01 Initial Consult Date SUBJECTIVE: Patient is awake, lethargic. Altered. No fevers. No cute events over night. VS: stable T: 98.5 LABS: Reviewed. Antimicrobials: Meropenem, Cancidas CXR: 04/08/19: IMPRESSION: 1. Mildly enlarged cardiac silhouette. Aortic atherosclerosis. 2. Similar appearance of mild hilar congestion/perihilar edema. Indwelling: Left subclavian permacath, PEG Microbiology: Urine culture on admission grew Dominique glabrata. Blood culture growing Enterococcus ==Repeat blood cultures from hemodialysis catheter negative 2D ECHO: no vegetations per ECHO Physical examination: GEN: This is a chronically ill-appearing wasted elderly woman, who is in no distress. HENT: Head atraumatic normocephalic. Neck is supple. PULM: Chest rise symmetrical breath sounds with scattered rhonchi, diminished bases. Heart: S1-S2. Abdomen: soft, bowel sounds present. Extremities: no cyanosis, no edema. Assessment: 1. Systemic inflammatory response syndrome with low-grade fevers, rule out aspiration versus recurrent UTI 2. Status post recurrent UTI and bacteremia 4. End-stage renal disease, hemodialysis dependent 5. Anemia 6. 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 Continue current antibiotics and Cancidas. Repeat cxr from 04/08/19 noted. Requesting Provider: JOSE RAUL ANDREWS MD Date/Time of Note DATE: 04/09/19 TIME: 14:56 Exam/Review of Systems Exam Vitals Vital Signs Date Temp Pulse Resp B/P (MAP) Pulse Ox O2 O2 Flow FiO2 Time Delivery Rate 04/09/19 98.5 81 25 112/60 97 14:19 (77) 04/09/19 21 09:11 04/08/19 Room Air 12:35 Intake and Output 04/08/19 04/08/19 04/09/19 1515:00 23:00 07:00 IntakeIntake Total 250 ml OutputOutput Total 1200 ml BalanceBalance -1200 ml 250 ml Results Result Diagram: 04/08/19 0520 04/08/19 0520 Results 24hrs Laboratory Tests Test 04/08/19 20:31 04/09/19 09:25 Bedside Glucose 153 137 Medications Medication Current Medications Epoetin Michael-epbx (Retacrit (Esrd)) 4,000 unit MoWeFr@1700 SC Last administered on 04/08/19at 17:40; Admin Dose 4,000 UNIT; Start 02/28/19 at 17:00 Olanzapine (Zyprexa) 2.5 mg DAILY GTB Last administered on 04/09/19 09:22; Admin Dose 2.5 MG; Start 03/01/19 at 09:00 Lansoprazole (Prevacid) 30 mg BID@0600,1800 GTB Last administered on 04/09/19at 06:34; Admin Dose 30 MG; Start 02/28/19 at 18:00 Albuterol/ Ipratropium (Duoneb) 3 ml Q4H RESP THERAPY HHN Last administered on 04/09/19at 09:11; Admin Dose 3 ML; Start 03/12/19 at 10:00 Albuterol/ Ipratropium (Duoneb) 3 ml Q2H RESP THERAPY PRN HHN SHORTNESS OF BREATH; Start 03/12/19 at 10:00 Miscellaneous Information 1 ea NOTE XX ; Start 03/13/19 at 16:30 Glucose (Glutose) 15 gm Q15M PRN PO DECREASED GLUCOSE; Start 03/13/19 at 16:30 Glucose (Glutose) 22.5 gm Q15M PRN PO DECREASED GLUCOSE; Start 03/13/19 at 16:30 Dextrose (D50w Syringe) 25 ml Q15M PRN IV DECREASED GLUCOSE; Start 03/13/19 at 16:30 Dextrose (D50w Syringe) 50 ml Q15M PRN IV DECREASED GLUCOSE; Start 03/13/19 at 16:30 Glucagon (Glucagen) 1 mg Q15M PRN IM DECREASED GLUCOSE; Start 03/13/19 at 16:30 Glucose (Glutose) 15 gm Q15M PRN BUCCAL DECREASED GLUCOSE; Start 03/13/19 at 16:30 Lorazepam (Ativan) 0.5 mg QID PRN GTB ANXIETY Last administered on 04/04/19at 21:43; Admin Dose 0.5 MG; Start 03/23/19 at 20:00 Acetaminophen (Tylenol Liquid) 650 mg Q4H PRN GTB MILD PAIN(1-3)OR ELEVATED TEMP Last administered on 04/06/19at 13:37; Admin Dose 650 MG; Start 03/23/19 at 20:00 Amlodipine Besylate (Norvasc) 5 mg BID GTB Last administered on 04/09/19 09:27; Admin Dose 5 MG; Start 03/26/19 at 21:00 Ascorbic Acid (Vitamin C) 500 mg DAILY GTB Last administered on 04/09/19 09:23; Admin Dose 500 MG; Start 03/27/19 at 09:00 Docusate Sodium (Colace Liquid Cup) 100 mg BID GTB Last administered on 04/09/19 09:22; Admin Dose 100 MG; Start 03/26/19 at 21:00 Folic Acid (Folic Acid) 1 mg DAILY GTB Last administered on 04/09/19 09:22; Admin Dose 1 MG; Start 03/27/19 at 09:00 Linagliptin (Tradjenta) 5 mg DAILY PO Last administered on 04/09/19 09:26; Admin Dose 5 MG; Start 03/27/19 at 09:00 Metoprolol Tartrate (Lopressor) 50 mg BID GTB Last administered on 04/09/19 09:27; Admin Dose 50 MG; Start 03/26/19 at 21:00 Atorvastatin Calcium (Lipitor) 40 mg HS GTB Last administered on 04/08/19 20:26; Admin Dose 40 MG; Start 03/26/19 at 21:00 Diagnostic Test (Pha) (Accu-Chek) 1 ea Q12 XX Last administered on 04/09/19 09:27; Admin Dose 1 EA; Start 03/28/19 at 20:00 Meropenem/Sodium Chloride 50 ml @ 100 mls/hr Q24H IVPB Last administered on 04/09/19 14:52; Admin Dose 100 MLS/HR; Start 04/05/19 at 15:30 Morphine Sulfate (morphine) 2 mg Q6H PRN IV SEVERE PAIN LEVEL 7-10; Start 04/05/19 at 16:30 Caspofungin 50 mg/ Sodium Chloride 250 ml @ 250 mls/hr Q24H IVPB Last administered on 04/08/19 20:35; Admin Dose 250 MLS/HR; Start 04/08/19 at 17:00 Magnesium Citrate (Citroma) 150 ml ONCE ONCE PO ; Start 04/09/19 at 15:30; Stop 04/09/19 at 15:31 SCOTT SHEEHAN Apr 09, 2019 15:01
[2019-04-09] MEDS ORDERED: MAGNESIUM CITRATE 300 ML BTL PO ONE (15:30)
--- NOTE | 2019-04-09 15:51 | PN ---
DATE: 04/09/2019 SUBJECTIVE: The patient seen, alert, arousable, less confused, last dialysis yesterday. PHYSICAL EXAMINATION: VITAL SIGNS: The patient with low grade temperature today. This morning at 99.5, pulse 84, respirat ions 18, blood pressure 112/56, saturation 100% room air. GENERAL: No acute distress. The patient is frail, pale. CARDIOVASCULAR: S1, S2, regular rate. LUNGS: Clear. ABDOMEN: Soft. G-tube in place. EXTREMITIES: No clubbing, cyanosis, or edema. Contracted at the knees. LABORATORY DATA: White count is 8, hemoglobin 7.6, this was yesterday. Last glucose level 137 186. The patient's urine culture did come back as Dominique glabrata on April 05 greater than 100,000 and blood culture on April 05 were negative. MEDICATIONS: 1. Caspofungin IV daily. 2. Morphine sulfate as directed. 3. Merrem IV daily. 4. Vitamin C 500 mg daily. 5. Folic acid 1 mg daily. 6. Tradjenta 5 mg daily. 7. Norvasc 5 mg b.i.d. 8. Colace 100 b.i.d. 9. Lopressor 50 b.i.d. 10. Lipitor 40 mg at bedtime. 11. Ativan p.r.n. 12. Tylenol p.r.n. 13. Hypoglycemia protocol as directed. 14. DuoNeb q.4 p.r.n. 15. Zyprexa 2.5 daily. 16. Prevacid 30 mg daily. 17. Epogen as directed. ASSESSMENT AND PLAN: This is an 83-year-old Filipina female with end-stage renal disease, vascular d ementia, hypertension, diabetes mellitus, anemia, status post treatment for bacteremia, pneumonia and urinary tract infection, now with again low grade fever was found to have a Dominique glabrata u rinary tract infection. 1. Respiratory. O2 support as needed. Recent chest x-ray showed improvement. 2. Cardiovascular. Stable hemodynamically. Off blood thinners due to need for transfusion frequent ly. 3. Diabetes mellitus. Continue Lantus and Tradjenta. Glucose level in the low 100. 5. Urinary tract infection, organism Dominique glabrata. Continue Cancidas. Dr. Proctor is following. 6. Anemia. Continue Epogen and iron supplements. Monitor H and H tomorrow. Transfuse p.r.n. 7. End-stage renal disease. Last dialysis yesterday. Monitor electrolytes. 8. Psychiatric disorder, on Zyprexa with 1:1 sitter due to risk of fall. 9. Malnutrition and dysphagia. Continue G-tube feeding to 30 mL an hour, which she tolerates well. 10. gardening manager is assisting with placement. We will follow. Appears to be stable today. Dictated By: DYLON HULL/MADAN Conf#: [id number] DID#: [id number] CC: JOSE RAUL ANDREWS;*EndCC*
[2019-04-09] MEDS: CASPOFUNGIN 50 MG in SOD CHLORIDE 0.9% 250 ML IVPB SCH (16:45)
[2019-04-09 20:00] VITALS: BP 123/61; PULSE 83; RESP 18
[2019-04-09] MEDS: ATORVASTATIN 40 MG TAB GTB SCH (21:37)
[2019-04-10] MEDS: ALBUTEROL/IPRATROPIUM (NEB) 3 ML AMP HHN SCH ×6 (01:43→21:03)
[2019-04-10 02:00] VITALS: BP 130/62; PULSE 86; RESP 22
[2019-04-10] MEDS: LANSOPRAZOLE 30 MG CAP GTB SCH ×2 (05:03→17:28)
[2019-04-10 07:00] VITALS: BP 118/58; PULSE 84; RESP 18
[2019-04-10] MEDS: FOLIC ACID 1 MG TAB GTB SCH (08:27)
[2019-04-10] MEDS: OLANZAPINE 2.5 MG TAB GTB SCH (08:27)
[2019-04-10] MEDS: AMLODIPINE 5 MG TAB GTB SCH ×2 (08:28→20:19)
[2019-04-10] MEDS: ASCORBIC ACID 500 MG TAB GTB SCH (08:28)
[2019-04-10] MEDS: METOPROLOL 50 MG TAB GTB SCH ×2 (08:28→20:19)
[2019-04-10] MEDS: ACCU-CHEK XX SCH ×2 (08:29→20:19)
[2019-04-10] MEDS: DOCUSATE SODIUM 10 MG/ML (10ML CUP) GTB SCH ×4 (08:29→20:24)
[2019-04-10] MEDS: LINAGLIPTIN 5 MG TABLET PO SCH (08:30)
--- NOTE | 2019-04-10 09:01 | CONS ---
Assessment/Plan Assessment/Plan Hospital Course (Demo Recall) 1. End-stage renal disease on hemodialysis. 2. Anemia of chronic disease 3. Urinary tract infection, now has yeast in urine. 4. Hypertension, controlled. 5. Dementia. 6. Diabetes mellitus type II. 7. Diastolic heart failure. 8. Moderate protein energy malnutrition with cachexia. 9. Osteoarthritis. 10. GT status 11. Had fever 3 days ago Assessment/Plan (Daily) - cw HD MWF, [facility], -Continue with epogen 4000 -c/w phosp. binding agents Consultation Date/Type/Reason Admit Date/Time Feb 19, 2019 at 01:01 Initial Consult Date 02/19/2019 Type of Consult nephrology Requesting Provider: JOSE RAUL ANDREWS MD Date/Time of Note DATE: 04/10/19 TIME: 09:00 24 HR Interval Summary Free Text/Dictation diarrhea per sitter Exam/Review of Systems Exam Vitals Vital Signs Date Temp Pulse Resp B/P (MAP) Pulse Ox O2 O2 Flow FiO2 Time Delivery Rate 04/10/19 98.6 84 18 118/58 96 Room Air 07:00 (78) 04/10/19 21 05:55 Intake and Output 04/09/19 04/09/19 04/10/19 1515:00 23:00 07:00 IntakeIntake Total 600 ml 620 ml BalanceBalance 600 ml 620 ml Exam sleeping Neck: supple Respiratory: diminished breath sounds Gastrointestinal: soft, other (GT) Results Result Diagram: 04/10/1951804/10/19518 Results 24hrs Laboratory Tests Test 04/09/19 09:25 04/09/19 21:44 04/10/19 05:19 04/10/19 08:16 Bedside Glucose 137 154 189 White Blood Count 8.3 Red Blood Count 3.00 L Hemoglobin 7.8 L Hematocrit 24.6 L Mean Corpuscular Volume 82.0 Mean Corpuscular 26.0 L Hemoglobin Mean Corpuscular 31.7 L Hemoglobin Concent Red Cell Distribution 15.8 H Width Platelet Count 232 Mean Platelet Volume 11.9 H Immature Granulocytes % 0.500 H Neutrophils % 71.3 Lymphocytes % 12.0 L Monocytes % 10.7 Eosinophils % 5.1 Basophils % 0.4 Nucleated Red Blood 0.5 H Cells % Immature Granulocytes # 0.040 H Neutrophils # 5.9 Lymphocytes # 1.0 Monocytes # 0.9 Eosinophils # 0.4 Basophils # 0.0 Nucleated Red Blood 0.0 Cells # Sodium Level 137 Potassium Level 3.9 Chloride Level 100 Carbon Dioxide Level 27 Anion Gap 10 Blood Urea Nitrogen 73 H Creatinine 2.20 H Est Glomerular Filtrat Rate mL/min Glucose Level 160 Calcium Level 8.3 L Phosphorus Level 4.0 Magnesium Level 2.6 H Medications Medication Current Medications Epoetin Michael-epbx (Retacrit (Esrd)) 4,000 unit MoWeFr@1700 SC Last administered on 04/08/19at 17:40; Admin Dose 4,000 UNIT; Start 02/28/19 at 17:00 Olanzapine (Zyprexa) 2.5 mg DAILY GTB Last administered on 04/10/19at 08:27; Admin Dose 2.5 MG; Start 03/01/19 at 09:00 Lansoprazole (Prevacid) 30 mg BID@0600,1800 GTB Last administered on 04/10/19at 0 5:03; Admin Dose 30 MG; Start 02/28/19 at 18:00 Albuterol/ Ipratropium (Duoneb) 3 ml Q4H RESP THERAPY HHN Last administered on 04/10/19at 05:55; Admin Dose 3 ML; Start 03/12/19 at 10:00 Albuterol/ Ipratropium (Duoneb) 3 ml Q2H RESP THERAPY PRN HHN SHORTNESS OF BREATH; Start 03/12/19 at 10:00 Miscellaneous Information 1 ea NOTE XX ; Start 03/13/19 at 16:30 Glucose (Glutose) 15 gm Q15M PRN PO DECREASED GLUCOSE; Start 03/13/19 at 16:30 Glucose (Glutose) 22.5 gm Q15M PRN PO DECREASED GLUCOSE; Start 03/13/19 at 16:30 Dextrose (D50w Syringe) 25 ml Q15M PRN IV DECREASED GLUCOSE; Start 03/13/19 at 16:30 Dextrose (D50w Syringe) 50 ml Q15M PRN IV DECREASED GLUCOSE; Start 03/13/19 at 16:30 Glucagon (Glucagen) 1 mg Q15M PRN IM DECREASED GLUCOSE; Start 03/13/19 at 16:30 Glucose (Glutose) 15 gm Q15M PRN BUCCAL DECREASED GLUCOSE; Start 03/13/19 at 16:30 Lorazepam (Ativan) 0.5 mg QID PRN GTB ANXIETY Last administered on 04/04/19 21:43; Admin Dose 0.5 MG; Start 03/23/19 at 20:00 Acetaminophen (Tylenol Liquid) 650 mg Q4H PRN GTB MILD PAIN(1-3)OR ELEVATED TEMP Last administered on 04/06/19 13:37; Admin Dose 650 MG; Start 03/23/19 at 20:00 Amlodipine Besylate (Norvasc) 5 mg BID GTB Last administered on 04/10/19 08:28; Admin Dose 5 MG; Start 03/26/19 at 21:00 Ascorbic Acid (Vitamin C) 500 mg DAILY GTB Last administered on 04/10/19 08:28; Admin Dose 500 MG; Start 03/27/19 at 09:00 Docusate Sodium (Colace Liquid Cup) 100 mg BID GTB Last administered on 04/09/19 09:22; Admin Dose 100 MG; Start 03/26/19 at 21:00 Folic Acid (Folic Acid) 1 mg DAILY GTB Last administered on 04/10/19 08:27; Admin Dose 1 MG; Start 03/27/19 at 09:00 Linagliptin (Tradjenta) 5 mg DAILY PO Last administered on 04/10/19 08:30; Admin Dose 5 MG; Start 03/27/19 at 09:00 Metoprolol Tartrate (Lopressor) 50 mg BID GTB Last administered on 04/10/19 08:28; Admin Dose 50 MG; Start 03/26/19 at 21:00 Atorvastatin Calcium (Lipitor) 40 mg HS GTB Last administered on 04/09/19 21:37; Admin Dose 40 MG; Start 03/26/19 at 21:00 Diagnostic Test (Pha) (Accu-Chek) 1 ea Q12 XX Last administered on 04/09/19 09:27; Admin Dose 1 EA; Start 03/28/19 at 20:00 Meropenem/Sodium Chloride 50 ml @ 100 mls/hr Q24H IVPB Last administered on 04/09/19 14:52; Admin Dose 100 MLS/HR; Start 04/05/19 at 15:30 Morphine Sulfate (morphine) 2 mg Q6H PRN IV SEVERE PAIN LEVEL 7-10; Start 04/05/19 at 16:30 Caspofungin 50 mg/ Sodium Chloride 250 ml @ 250 mls/hr Q24H IVPB Last administered on 04/09/19at 16:45; Admin Dose 250 MLS/HR; Start 04/08/19 at 17:00 FLAVIO CLAYTON Apr 10, 2019 09:01
[2019-04-10 14:00] VITALS: BP 112/73; PULSE 82; RESP 18
--- NOTE | 2019-04-10 14:41 | CONS ---
Assessment/Plan Assessment/Plan Hospital Course (Demo Recall) No changes looks comfortable, afebrile Blood cx neg, urine culture +yeast Antimicrobials: Cancidas Indwelling: Left subclavian permacath, PEG Physical examination: This is a chronically ill-appearing wasted elderly woman who is in no distress. Head atraumatic normocephalic. Neck is supple. Chest rise symmetrical patient is mildly tachypneic with expiratory wheezes. Heart: S1-S2, tachycardic. Abdomen soft bowel sounds present. Extremities without cyanosis edema. Assessment: 1. Systemic inflammatory response syndrome with low-grade fevers, rule out aspiration versus recurrent UTI 2. Status post recurrent UTI and bacteremia 4. End-stage renal disease, hemodialysis dependent 5. Anemia 6. 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 Plan: Clinically unchanged, no fevers, continue Rx, aspiration measures Consultation Date/Type/Reason Admit Date/Time Feb 19, 2019 at 01:01 Initial Consult Date Type of Consult id Requesting Provider: JOSE RAUL ANDREWS MD Date/Time of Note DATE: 04/10/19 TIME: 14:40 Exam/Review of Systems Exam Vitals Vital Signs Date Temp Pulse Resp B/P (MAP) Pulse Ox O2 O2 Flow FiO2 Time Delivery Rate 04/10/19 98.4 82 18 112/73 96 Room Air 14:00 (86) 04/10/19 21 09:50 Intake and Output 04/09/19 04/09/19 04/10/19 1515:00 23:00 07:00 IntakeIntake Total 600 ml 620 ml BalanceBalance 600 ml 620 ml Results Result Diagram: 04/10/1951804/10/19518 Results 24hrs Laboratory Tests Test 04/09/19 21:44 04/10/19 05:19 04/10/19 08:16 Bedside Glucose 154 189 White Blood Count 8.3 Red Blood Count 3.00 L Hemoglobin 7.8 L Hematocrit 24.6 L Mean Corpuscular Volume 82.0 Mean Corpuscular Hemoglobin 26.0 L Mean Corpuscular Hemoglobin Concent 31.7 L Red Cell Distribution Width 15.8 H Platelet Count 232 Mean Platelet Volume 11.9 H Immature Granulocytes % 0.500 H Neutrophils % 71.3 Lymphocytes % 12.0 L Monocytes % 10.7 Eosinophils % 5.1 Basophils % 0.4 Nucleated Red Blood Cells % 0.5 H Immature Granulocytes # 0.040 H Neutrophils # 5.9 Lymphocytes # 1.0 Monocytes # 0.9 Eosinophils # 0.4 Basophils # 0.0 Nucleated Red Blood Cells # 0.0 Sodium Level 137 Potassium Level 3.9 Chloride Level 100 Carbon Dioxide Level 27 Anion Gap 10 Blood Urea Nitrogen 73 H Creatinine 2.20 H Est Glomerular Filtrat Rate mL/min Glucose Level 160 Calcium Level 8.3 L Phosphorus Level 4.0 Magnesium Level 2.6 H Medications Medication Current Medications Epoetin Michael-epbx (Retacrit (Esrd)) 4,000 unit MoWeFr@1700 SC Last administered on 04/08/19at 17:40; Admin Dose 4,000 UNIT; Start 02/28/19 at 17:00 Olanzapine (Zyprexa) 2.5 mg DAILY GTB Last administered on 04/10/19at 08:27; Admin Dose 2.5 MG; Start 03/01/19 at 09:00 Lansoprazole (Prevacid) 30 mg BID@0600,1800 GTB Last administered on 04/10/19at 05:03; Admin Dose 30 MG; Start 02/28/19 at 18:00 Albuterol/ Ipratropium (Duoneb) 3 ml Q4H RESP THERAPY HHN Last administered on 04/10/19at 09:50; Admin Dose 3 ML; Start 03/12/19 at 10:00 Albuterol/ Ipratropium (Duoneb) 3 ml Q2H RESP THERAPY PRN HHN SHORTNESS OF BREATH; Start 03/12/19 at 10:00 Miscellaneous Information 1 ea NOTE XX ; Start 03/13/19 at 16:30 Glucose (Glutose) 15 gm Q15M PRN PO DECREASED GLUCOSE; Start 03/13/19 at 16:30 Glucose (Glutose) 22.5 gm Q15M PRN PO DECREASED GLUCOSE; Start 03/13/19 at 16:30 Dextrose (D50w Syringe) 25 ml Q15M PRN IV DECREASED GLUCOSE; Start 03/13/19 at 16:30 Dextrose (D50w Syringe) 50 ml Q15M PRN IV DECREASED GLUCOSE; Start 03/13/19 at 16:30 Glucagon (Glucagen) 1 mg Q15M PRN IM DECREASED GLUCOSE; Start 03/13/19 at 16:30 Glucose (Glutose) 15 gm Q15M PRN BUCCAL DECREASED GLUCOSE; Start 03/13/19 at 16:30 Lorazepam (Ativan) 0.5 mg QID PRN GTB ANXIETY Last administered on 04/04/19 21:43; Admin Dose 0.5 MG; Start 03/23/19 at 20:00 Acetaminophen (Tylenol Liquid) 650 mg Q4H PRN GTB MILD PAIN(1-3)OR ELEVATED TEMP Last administered on 04/06/19 13:37; Admin Dose 650 MG; Start 03/23/19 at 20:00 Amlodipine Besylate (Norvasc) 5 mg BID GTB Last administered on 04/10/19 08:28; Admin Dose 5 MG; Start 03/26/19 at 21:00 Ascorbic Acid (Vitamin C) 500 mg DAILY GTB Last administered on 04/10/19 08:28; Admin Dose 500 MG; Start 03/27/19 at 09:00 Docusate Sodium (Colace Liquid Cup) 100 mg BID GTB Last administered on 04/09/19 09:22; Admin Dose 100 MG; Start 03/26/19 at 21:00 Folic Acid (Folic Acid) 1 mg DAILY GTB Last administered on 04/10/19 08:27; Admin Dose 1 MG; Start 03/27/19 at 09:00 Linagliptin (Tradjenta) 5 mg DAILY PO Last administered on 04/10/19 08:30; Admin Dose 5 MG; Start 03/27/19 at 09:00 Metoprolol Tartrate (Lopressor) 50 mg BID GTB Last administered on 04/10/19 08:28; Admin Dose 50 MG; Start 03/26/19 at 21:00 Atorvastatin Calcium (Lipitor) 40 mg HS GTB Last administered on 04/09/19 21:37; Admin Dose 40 MG; Start 03/26/19 at 21:00 Diagnostic Test (Pha) (Accu-Chek) 1 ea Q12 XX Last administered on 04/09/19 09:27; Admin Dose 1 EA; Start 03/28/19 at 20:00 Morphine Sulfate (morphine) 2 mg Q6H PRN IV SEVERE PAIN LEVEL 7-10; Start 04/05/19 at 16:30 Caspofungin 50 mg/ Sodium Chloride 250 ml @ 250 mls/hr Q24H IVPB Last administered on 04/09/19at 16:45; Admin Dose 250 MLS/HR; Start 04/08/19 at 17:00 PHYLICIA HOLCOMB NP Apr 10, 2019 14:41
[2019-04-10] MEDS: CASPOFUNGIN 50 MG in SOD CHLORIDE 0.9% 250 ML IVPB SCH (17:33)
--- NOTE | 2019-04-10 18:23 | PN ---
DATE: 04/10/2019 SUBJECTIVE: The patient was seen, comfortable with a sitter and had no acute events. PHYSICAL EXAMINATION: VITAL SIGNS: Temperature 98.4, pulse 82, respirations 18, blood pressure 112/73, saturation 96% on r oom air. GENERAL: No acute distress, pleasant, pale. CARDIOVASCULAR: S1, S2, regular rate. LUNGS: Clear. ABDOMEN: Soft, nontender. EXTREMITIES: No clubbing, cyanosis or edema. LABORATORY DATA: White count 8.3, hemoglobin 7.8, hematocrit 25, platelet count of 232, neutrophils 71%, lymphocytes 12%. Chemistry: Sodium 137, potassium 3.8, chloride 100, bicarb 27, BUN 73, creati nine 2.2, glucose of 160. Magnesium 2.6. The patient's urine culture did show Dominique glabrata. MEDICATIONS: Include: 1. Caspofungin. 2. Morphine. 3. Vitamin C. 4. Folic acid. 5. Tradjenta. 6. Norvasc. 7. Colace. 8. Lopressor. 9. Lipitor. 10. Ativan. 11. Tylenol p.r.n. 12. Hypoglycemia protocol. 13. Breathing treatments every 4 hours and p.r.n. 14. Zyprexa 2.5 daily. 15. Prevacid 30 mg daily. 16. Epogen as directed. ASSESSMENT AND PLAN: This is an 83-year-old unfortunate Spanish female with end-stage renal disease , vascular dementia, hypertension, diabetes mellitus, anemia, status post treatment for bacteremia, p neumonia and urinary tract infection, now again was found to have low grade fever, was found to have Dominique glabrata urinary tract infection. 1. Respiratory: O2 support as needed. Recent chest x-ray shows improvement. Continue aspiration p recautions. 2. Cardiovascular: Vitals are stable off blood thinners due to anemia and need for transfusion. 3. Anemia. Iron supplements and Epogen are being provided. Monitor H and H. Transfuse as needed. I am concerned about bleeding in patient with elevated BUN. Stool occult blood is pending. 4. Diabetes mellitus. Continue Lantus and Tradjenta. Glucose level is in the 100s. 5. Urinary tract infection with organism Dominique glabrata. Antibiotics per Dr. Proctor. Now on Canc idas. 6. End-stage renal disease. Next dialysis planned for tomorrow. 7. Psychiatric disorder. Mood is stable on Zyprexa with 1:1 sitter due to risk of fall. 8. Malnutrition and dysphagia. Continue G-tube feeding at 30 mL an hour. Overall, she tolerates it well. Dietary to follow. 9. manager training and development is assisting with placement to correction facility for ongoing care. Overall, long-term prognosis is guarded. The patient is DNR. We will follow. Dictated By: DYLON HULL/MADAN Conf#: [id number] DID#: [id number] CC: JOSE RAUL ANDREWS;*EndCC*
[2019-04-10 19:17] VITALS: BP 139/63; PULSE 84; RESP 18
[2019-04-10] MEDS: ACETAMINOPHEN 650MG/20.3ML CUP GTB PRN (20:19)
[2019-04-10] MEDS: ATORVASTATIN 40 MG TAB GTB SCH (20:19)
[2019-04-11] VITALS (16 sets, daily range): BP systolic 109–136; BP diastolic 49–102; PULSE 78–105; RESP 18
[2019-04-11] MEDS: ALBUTEROL/IPRATROPIUM (NEB) 3 ML AMP HHN SCH ×6 (01:00→21:07)
[2019-04-11] MEDS: LANSOPRAZOLE 30 MG CAP GTB SCH ×2 (05:35→17:38)
[2019-04-11] MEDS: ACCU-CHEK XX SCH ×2 (09:00→20:47)
[2019-04-11] MEDS: DOCUSATE SODIUM 10 MG/ML (10ML CUP) GTB SCH ×2 (10:02→20:49)
[2019-04-11] MEDS: OLANZAPINE 2.5 MG TAB GTB SCH (10:03)
[2019-04-11] MEDS: FOLIC ACID 1 MG TAB GTB SCH (10:03)
[2019-04-11] MEDS: LINAGLIPTIN 5 MG TABLET PO SCH (10:03)
[2019-04-11] MEDS: ASCORBIC ACID 500 MG TAB GTB SCH (10:03)
[2019-04-11] MEDS: AMLODIPINE 5 MG TAB GTB SCH ×2 (10:03→20:49)
[2019-04-11] MEDS: METOPROLOL 50 MG TAB GTB SCH ×2 (10:04→20:49)
[2019-04-11] MEDS: [UNRECOGNIZED DRUG - OTHER] XX SCH ×2 (10:30→18:30)
--- NOTE | 2019-04-11 14:17 | CONS ---
Assessment/Plan Assessment/Plan Hospital Course (Demo Recall) No acute changes looks comfortable, afebrile Blood cx neg, urine culture +yeast Antimicrobials: Cancidas Indwelling: Left subclavian permacath, PEG Physical examination: This is a chronically ill-appearing wasted elderly woman who is in no distress. Head atraumatic normocephalic. Neck is supple. Chest rise symmetrical patient is mildly tachypneic with expiratory wheezes. Heart: S1-S2, tachycardic. Abdomen soft bowel sounds present. Extremities without cyanosis edema. Assessment: 1. Systemic inflammatory response syndrome with low-grade fevers, rule out aspiration versus recurrent UTI 2. Status post recurrent UTI and bacteremia 4. End-stage renal disease, hemodialysis dependent 5. Anemia 6. 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 Plan: Clinically unchanged, stable, continue Rx, aspiration measures Consultation Date/Type/Reason Admit Date/Time Feb 19, 2019 at 01:01 Initial Consult Date Type of Consult id Requesting Provider: JOSE RAUL ANDREWS MD Date/Time of Note DATE: 04/11/19 TIME: 14:16 Exam/Review of Systems Exam Vitals Vital Signs Date Temp Pulse Resp B/P (MAP) Pulse Ox O2 O2 Flow FiO2 Time Delivery Rate 04/11/19 72 20 97 21 13:14 04/11/19 115/59 Room Air 09:47 (77) 04/11/19 98.5 08:00 Intake and Output 04/10/19 04/10/19 04/11/19 1515:00 23:00 07:00 IntakeIntake Total 250 ml 610 ml OutputOutput Total 200 ml BalanceBalance 250 ml 410 ml Results Result Diagram: 04/10/1951804/10/19518 Results 24hrs Laboratory Tests Test 04/10/19 20:21 04/11/19 09:13 Bedside Glucose 203 142 Medications Medication Current Medications Epoetin Michael-epbx (Retacrit (Esrd)) 4,000 unit MoWeFr@1700 SC Last administered on 04/08/19at 17:40; Admin Dose 4,000 UNIT; Start 02/28/19 at 17:00 Olanzapine (Zyprexa) 2.5 mg DAILY GTB Last administered on 04/11/19at 10:03; Admin Dose 2.5 MG; Start 03/01/19 at 09:00 Lansoprazole (Prevacid) 30 mg BID@0600,1800 GTB Last administered on 04/11/19 05:35; Admin Dose 30 MG; Start 02/28/19 at 18:00 Albuterol/ Ipratropium (Duoneb) 3 ml Q4H RESP THERAPY HHN Last administered on 04/11/19at 13:11; Admin Dose 3 ML; Start 03/12/19 at 10:00 Albuterol/ Ipratropium (Duoneb) 3 ml Q2H RESP THERAPY PRN HHN SHORTNESS OF BREATH; Start 03/12/19 at 10:00 Miscellaneous Information 1 ea NOTE XX ; Start 03/13/19 at 16:30 Glucose (Glutose) 15 gm Q15M PRN PO DECREASED GLUCOSE; Start 03/13/19 at 16:30 Glucose (Glutose) 22.5 gm Q15M PRN PO DECREASED GLUCOSE; Start 03/13/19 at 16:30 Dextrose (D50w Syringe) 25 ml Q15M PRN IV DECREASED GLUCOSE; Start 03/13/19 at 16:30 Dextrose (D50w Syringe) 50 ml Q15M PRN IV DECREASED GLUCOSE; Start 03/13/19 at 16:30 Glucagon (Glucagen) 1 mg Q15M PRN IM DECREASED GLUCOSE; Start 03/13/19 at 16:30 Glucose (Glutose) 15 gm Q15M PRN BUCCAL DECREASED GLUCOSE; Start 03/13/19 at 16:30 Lorazepam (Ativan) 0.5 mg QID PRN GTB ANXIETY Last administered on 04/04/19at 21:43; Admin Dose 0.5 MG; Start 03/23/19 at 20:00 Acetaminophen (Tylenol Liquid) 650 mg Q4H PRN GTB MILD PAIN(1-3)OR ELEVATED TEMP Last administered on 04/10/19 20:19; Admin Dose 650 MG; Start 03/23/19 at 20:00 Amlodipine Besylate (Norvasc) 5 mg BID GTB Last administered on 04/11/19 10:03; Admin Dose 5 MG; Start 03/26/19 at 21:00 Ascorbic Acid (Vitamin C) 500 mg DAILY GTB Last administered on 04/11/19 10:03; Admin Dose 500 MG; Start 03/27/19 at 09:00 Docusate Sodium (Colace Liquid Cup) 100 mg BID GTB Last administered on 04/11/19 10:02; Admin Dose 100 MG; Start 03/26/19 at 21:00 Folic Acid (Folic Acid) 1 mg DAILY GTB Last administered on 04/11/19 10:03; Admin Dose 1 MG; Start 03/27/19 at 09:00 Linagliptin (Tradjenta) 5 mg DAILY PO Last administered on 04/11/19 10:03; Admin Dose 5 MG; Start 03/27/19 at 09:00 Metoprolol Tartrate (Lopressor) 50 mg BID GTB Last administered on 04/11/19 10:04; Admin Dose 50 MG; Start 03/26/19 at 21:00 Atorvastatin Calcium (Lipitor) 40 mg HS GTB Last administered on 04/10/19 20:19; Admin Dose 40 MG; Start 03/26/19 at 21:00 Diagnostic Test (Pha) (Accu-Chek) 1 ea Q12 XX Last administered on 04/10/19 20:19; Admin Dose 1 EA; Start 03/28/19 at 20:00 Morphine Sulfate (morphine) 2 mg Q6H PRN IV SEVERE PAIN LEVEL 7-10; Start 04/05/19 at 16:30 Caspofungin 50 mg/ Sodium Chloride 250 ml @ 250 mls/hr Q24H IVPB Last administered on 04/10/19 17:33; Admin Dose 250 MLS/HR; Start 04/08/19 at 17:00 Miscellaneous Information (*Order Clarification Bulletin) MEDICATION REQUIRES CLARIFICATI... Q8H XX ; Start 04/11/19 at 10:30; Stop 04/13/19 at 23:59 PHYLICIA HOLCOMB NP Apr 11, 2019 14:17
--- NOTE | 2019-04-11 14:30 | CONS ---
Assessment/Plan Assessment/Plan Assessment/Plan (Daily) Hospital Course (Demo Recall) 1. End-stage renal disease on hemodialysis. 2. Anemia of chronic disease 3. Urinary tract infection, now has yeast in urine. 4. Hypertension, controlled. 5. Dementia. 6. Diabetes mellitus type II. 7. Diastolic heart failure. 8. Moderate protein energy malnutrition with cachexia. 9. Osteoarthritis. 10. GT status 11. Had fever 3 days ago Assessment/Plan (Daily) - cw HD MWF, sp HD today -negative blood cultures from permacat, -Continue with epogen 4000 -iv abx per renal Consultation Date/Type/Reason Admit Date/Time Feb 19, 2019 at 01:01 Initial Consult Date Requesting Provider: JOSE RAUL ANDREWS MD Date/Time of Note DATE: 04/11/19 TIME: 14:28 24 HR Interval Summary Free Text/Dictation ptpulling out clothes SP HD this am Exam/Review of Systems Exam Vitals Vital Signs Date Temp Pulse Resp B/P (MAP) Pulse Ox O2 O2 Flow FiO2 Time Delivery Rate 04/11/19 72 20 97 21 13:14 04/11/19 115/59 Room Air 09:47 (77) 04/11/19 98.5 08:00 Intake and Output 04/10/19 04/10/19 04/11/19 1515:00 23:00 07:00 IntakeIntake Total 250 ml 610 ml OutputOutput Total 200 ml BalanceBalance 250 ml 410 ml Exam pt awake Neck: supple Respiratory: diminished breath sounds Gastrointestinal: soft, other (GT) left permcath Results Result Diagram: 04/10/1951804/10/19518 Results 24hrs Laboratory Tests Test 04/10/19 20:21 04/11/19 09:13 Bedside Glucose 203 142 Medications Medication Current Medications Epoetin Michael-epbx (Retacrit (Esrd)) 4,000 unit MoWeFr@1700 SC Last administered on 04/08/19at 17:40; Admin Dose 4,000 UNIT; Start 02/28/19 at 17:00 Olanzapine (Zyprexa) 2.5 mg DAILY GTB Last administered on 04/11/19at 10:03; Admin Dose 2.5 MG; Start 03/01/19 at 09:00 Lansoprazole (Prevacid) 30 mg BID@0600,1800 GTB Last administered on 04/11/19 05:35; Admin Dose 30 MG; Start 02/28/19 at 18:00 Albuterol/ Ipratropium (Duoneb) 3 ml Q4H RESP THERAPY HHN Last administered on 04/11/19at 13:11; Admin Dose 3 ML; Start 03/12/19 at 10:00 Albuterol/ Ipratropium (Duoneb) 3 ml Q2H RESP THERAPY PRN HHN SHORTNESS OF BREATH; Start 03/12/19 at 10:00 Miscellaneous Information 1 ea NOTE XX ; Start 03/13/19 at 16:30 Glucose (Glutose) 15 gm Q15M PRN PO DECREASED GLUCOSE; Start 03/13/19 at 16:30 Glucose (Glutose) 22.5 gm Q15M PRN PO DECREASED GLUCOSE; Start 03/13/19 at 16:30 Dextrose (D50w Syringe) 25 ml Q15M PRN IV DECREASED GLUCOSE; Start 03/13/19 at 16:30 Dextrose (D50w Syringe) 50 ml Q15M PRN IV DECREASED GLUCOSE; Start 03/13/19 at 16:30 Glucagon (Glucagen) 1 mg Q15M PRN IM DECREASED GLUCOSE; Start 03/13/19 at 16:30 Glucose (Glutose) 15 gm Q15M PRN BUCCAL DECREASED GLUCOSE; Start 03/13/19 at 16:30 Lorazepam (Ativan) 0.5 mg QID PRN GTB ANXIETY Last administered on 04/04/19at 21:43; Admin Dose 0.5 MG; Start 03/23/19 at 20:00 Acetaminophen (Tylenol Liquid) 650 mg Q4H PRN GTB MILD PAIN(1-3)OR ELEVATED TEMP Last administered on 04/10/19 20:19; Admin Dose 650 MG; Start 03/23/19 at 20:00 Amlodipine Besylate (Norvasc) 5 mg BID GTB Last administered on 04/11/19 10:03; Admin Dose 5 MG; Start 03/26/19 at 21:00 Ascorbic Acid (Vitamin C) 500 mg DAILY GTB Last administered on 04/11/19 10:03; Admin Dose 500 MG; Start 03/27/19 at 09:00 Docusate Sodium (Colace Liquid Cup) 100 mg BID GTB Last administered on 04/11 10:02; Admin Dose 100 MG; Start 03/26/19 at 21:00 Folic Acid (Folic Acid) 1 mg DAILY GTB Last administered on 04/11/19 10:03; Admin Dose 1 MG; Start 03/27/19 at 09:00 Linagliptin (Tradjenta) 5 mg DAILY PO Last administered on 04/11/19 10:03; Admin Dose 5 MG; Start 03/27/19 at 09:00 Metoprolol Tartrate (Lopressor) 50 mg BID GTB Last administered on 04/11/19 10:04; Admin Dose 50 MG; Start 03/26/19 at 21:00 Atorvastatin Calcium (Lipitor) 40 mg HS GTB Last administered on 04/10/19 20:19; Admin Dose 40 MG; Start 03/26/19 at 21:00 Diagnostic Test (Pha) (Accu-Chek) 1 ea Q12 XX Last administered on 04/10/19 20:19; Admin Dose 1 EA; Start 03/28/19 at 20:00 Morphine Sulfate (morphine) 2 mg Q6H PRN IV SEVERE PAIN LEVEL 7-10; Start 04/05/19 at 16:30 Caspofungin 50 mg/ Sodium Chloride 250 ml @ 250 mls/hr Q24H IVPB Last administered on 04/10/19 17:33; Admin Dose 250 MLS/HR; Start 04/08/19 at 17:00 Miscellaneous Information (*Order Clarification Bulletin) MEDICATION REQUIRES CLARIFICATI... Q8H XX ; Start 04/11/19 at 10:30; Stop 04/13/19 at 23:59 JOSE RAUL ANDREWS MD Apr 11, 2019 14:30
--- NOTE | 2019-04-11 16:22 | PN ---
DATE: 04/11/2019 SUBJECTIVE: The patient is seen lying comfortably in bed status post dialysis this morning. PHYSICAL EXAMINATION: VITAL SIGNS: Temperature is 98.5, pulse is 72, respirations 20, blood pressure 115/69, saturation 97 % on room air. GENERAL: No acute distress. Pale. The patient overall very frail and weak. CARDIOVASCULAR: S1, S2. Regular rate. CHEST: Left upper chest PermCath. ABDOMEN: Soft. G-tube in place. EXTREMITIES: No clubbing, cyanosis or edema. LABORATORY DATA: No new labs today. Urine culture: Dominique glabrata on 04/05. CURRENT MEDICATIONS: All reviewed. They include: 1. Caspofungin. 2. Morphine p.r.n. 3. Vitamin C. 4. Folic acid. 5. Tradjenta. 6. Norvasc. 7. Colace. 8. Lopressor. 9. Lipitor. 10. Ativan. 11. Tylenol. 12. Hypoglycemia protocol. 13. DuoNeb. 14. Zyprexa 15. Prevacid. 16. Epogen. ASSESSMENT AND PLAN: This is an 83-year-old unfortunate Armenian female with end-stage renal disease , vascular dementia, hypertension, diabetes mellitus, anemia, status post treatment for bacteremia, p neumonia, urinary tract infection. 1. Respiratory, off oxygen. Saturation is good. Recent chest x-ray shows improvement. Continue as piration precautions. 2. Cardiovascular, stable vitals. Off blood thinners due to anemia. 3. Anemia. Continue iron supplements and Epogen. Monitor H and H. Transfuse as needed. 4. Diabetes mellitus, on Lantus and Tradjenta. Glucose level of under 100. 5. Urinary tract infection. Organism: Dominique glabrata. Continue Cancidas. Dr. Proctor is janusz corrales. 6. End-stage renal disease, status post dialysis today. 7. Psychiatric disorder, on Zyprexa with one-to-one sitter due to risk of fall. 8. Malnutrition and dysphagia, on G-tube feeding at 30 mL/hr, tolerating it well. Dietary to follow . Keep head elevated. 9. transportation dispatch manager is assisting with placement which has been challenging. Dictated By: DYLON HULL/MADAN Conf#: [id number] DID#: [id number]
[2019-04-11] MEDS: CASPOFUNGIN 50 MG in SOD CHLORIDE 0.9% 250 ML IVPB SCH (17:31)
[2019-04-11] MEDS: EPOETIN ALFA-EPBX (ESRD) 4,000 UNIT/ML VIAL SC SCH (17:37)
[2019-04-11] MEDS: LORAZEPAM 0.5 MG TAB GTB PRN (20:47)
[2019-04-11] MEDS: ATORVASTATIN 40 MG TAB GTB SCH (20:49)
[2019-04-12] MEDS: ALBUTEROL/IPRATROPIUM (NEB) 3 ML AMP HHN SCH ×4 (01:14→13:00)
[2019-04-12 02:00] VITALS: BP 134/65; PULSE 88; RESP 17
[2019-04-12] MEDS: [UNRECOGNIZED DRUG - OTHER] XX SCH ×2 (02:30→10:30)
[2019-04-12] MEDS: LANSOPRAZOLE 30 MG CAP GTB SCH ×2 (06:39→17:11)
[2019-04-12 08:00] VITALS: BP 124/62; PULSE 88; RESP 18
[2019-04-12] MEDS: ACCU-CHEK XX SCH ×2 (09:00→21:34)
[2019-04-12] MEDS: DOCUSATE SODIUM 10 MG/ML (10ML CUP) GTB SCH ×2 (09:18→21:34)
[2019-04-12] MEDS: METOPROLOL 50 MG TAB GTB SCH ×2 (09:19→21:33)
[2019-04-12] MEDS: ASCORBIC ACID 500 MG TAB GTB SCH (09:19)
[2019-04-12] MEDS: OLANZAPINE 2.5 MG TAB GTB SCH (09:19)
[2019-04-12] MEDS: LINAGLIPTIN 5 MG TABLET PO SCH (09:19)
[2019-04-12] MEDS: FOLIC ACID 1 MG TAB GTB SCH (09:19)
[2019-04-12] MEDS: AMLODIPINE 5 MG TAB GTB SCH ×2 (09:19→21:33)
--- NOTE | 2019-04-12 10:17 | PN ---
DATE: 04/12/2019 SUBJECTIVE: The patient is seen, appears to be comfortable, dialyzed yesterday. No new labs today, comfortably in bed. She has a sitter due to history of fall. PHYSICAL EXAMINATION: VITAL SIGNS: Temperature 98.4, pulse 72, respirations 18, blood pressure 124/62, saturation 98% on r oom air. GENERAL: No acute distress, frail, pale. CARDIOVASCULAR: S1, S2, regular rate. LUNGS: Clear. ABDOMEN: Soft, nontender. EXTREMITIES: No clubbing, cyanosis, or edema. LABORATORY DATA: White count 8.3, hemoglobin 7.8, hematocrit 25. This was on 04/10/2019. Chemistry showed last glucose level 174, 142 and 203. MEDICATIONS: Reviewed and include; 1. Caspofungin IV dose per pharmacy. 2. Morphine p.r.n. 3. Accu-Chek q.a.c and at bedtime. 4. Vitamin C daily. 5. Folic acid. 6. Tradjenta 5 mg daily. 7. Norvasc 5 mg b.i.d. 8. Colace 100 b.i.d. 9. Metoprolol tartrate 50 b.i.d. 10. Lipitor 40 at bedtime. 11. Ativan p.r.n. 12. Tylenol p.r.n. 13. Hypoglycemia protocol as directed. 14. Zyprexa 2.5 daily. 15. Prevacid 20 mg b.i.d. 16. Epogen as directed. ASSESSMENT AND PLAN: This is an 83-year-old unfortunate Estonian female with end-stage renal disease , vascular dementia, hypertension, diabetes mellitus, anemia, status post treatment for bacteremia, p neumonia and urinary tract infection. 1. Respiratory. Off oxygen, breathing comfortably. Continue aspiration precautions. 2. Cardiovascular. Vitals are stable, off blood thinners due to anemia. 3. Anemia. Continue Epogen and iron supplements. Monitor hemoglobin and hematocrit. Transfuse as needed. No tita evidence of bleeding. 4. Diabetes mellitus, on Lantus and Tradjenta. Glucose level in the 100s. Continue the same. 5. Urinary tract infection, organism Dominique glabrata. Continue Cancidas. Dr. Proctor is following. 6. End-stage renal disease. Last dialysis yesterday. Monitor electrolytes. 7. Psychiatric disorder and Zyprexa. Mood stable. 8. Malnutrition, dysphagia. Tolerating feeding 30 mL an hour. 9. analysis manager is assisting with placement. This is challenging as this patient is cross monitorin g due to risk of fall. We will follow. Dictated By: DYOLN HULL/MADAN Conf#: [id number] DID#: [id number] CC: DYLON WALLS MD; JOSE RAUL ANDREWS;*EndCC*
[2019-04-12 14:00] VITALS: BP 111/51; PULSE 80; RESP 18
--- NOTE | 2019-04-12 14:46 | CONS ---
Assessment/Plan Assessment/Plan Hospital Course (Demo Recall) No acute changes looks comfortable Blood cx neg, urine culture +yeast Antimicrobials: Cancidas Indwelling: Left subclavian permacath, PEG Physical examination: This is a chronically ill-appearing wasted elderly woman who is in no distress. Head atraumatic normocephalic. Neck is supple. Chest rise symmetrical patient is mildly tachypneic with expiratory wheezes. Heart: S1-S2, tachycardic. Abdomen soft bowel sounds present. Extremities without cyanosis edema. Assessment: 1. Systemic inflammatory response syndrome with low-grade fevers, rule out aspiration versus recurrent UTI 2. Status post recurrent UTI and bacteremia 4. End-stage renal disease, hemodialysis dependent 5. Anemia 6. 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 Plan: Clinically unchanged, stable, continue Rx, aspiration measures Consultation Date/Type/Reason Admit Date/Time Feb 19, 2019 at 01:01 Initial Consult Date Type of Consult id Requesting Provider: JOSE RAUL ANDREWS MD Date/Time of Note DATE: 04/12/19 TIME: 14:46 Exam/Review of Systems Exam Vitals Vital Signs Date Temp Pulse Resp B/P (MAP) Pulse Ox O2 O2 Flow FiO2 Time Delivery Rate 04/12/19 72 18 98 21 08:26 04/12/19 98.4 124/62 08:00 (82) 04/11/19 Room Air 09:47 Intake and Output 04/11/19 04/11/19 04/12/19 1515:00 23:00 07:00 IntakeIntake Total 250 ml OutputOutput Total 1900 ml BalanceBalance -1900 ml 250 ml Results Result Diagram: 04/10/1951804/10/19518 Results 24hrs Laboratory Tests Test 04/11/19 20:46 04/12/19 09:18 Bedside Glucose 174 174 Medications Medication Current Medications Epoetin Michael-epbx (Retacrit (Esrd)) 4,000 unit MoWeFr@1700 SC Last administered on 04/11/19at 17:37; Admin Dose 4,000 UNIT; Start 02/28/19 at 17:00 Olanzapine (Zyprexa) 2.5 mg DAILY GTB Last administered on 04/12/19at 09:19; Admin Dose 2.5 MG; Start 03/01/19 at 09:00 Lansoprazole (Prevacid) 30 mg BID@0600,1800 GTB Last administered on 04/12/19 06:39; Admin Dose 30 MG; Start 02/28/19 at 18:00 Albuterol/ Ipratropium (Duoneb) 3 ml Q4H RESP THERAPY HHN Last administered on 04/12/19 08:26; Admin Dose 3 ML; Start 03/12/19 at 10:00 Albuterol/ Ipratropium (Duoneb) 3 ml Q2H RESP THERAPY PRN HHN SHORTNESS OF BREATH; Start 03/12/19 at 10:00 Miscellaneous Information 1 ea NOTE XX ; Start 03/13/19 at 16:30 Glucose (Glutose) 15 gm Q15M PRN PO DECREASED GLUCOSE; Start 03/13/19 at 16:30 Glucose (Glutose) 22.5 gm Q15M PRN PO DECREASED GLUCOSE; Start 03/13/19 at 16:30 Dextrose (D50w Syringe) 25 ml Q15M PRN IV DECREASED GLUCOSE; Start 03/13/19 at 16:30 Dextrose (D50w Syringe) 50 ml Q15M PRN IV DECREASED GLUCOSE; Start 03/13/19 at 16:30 Glucagon (Glucagen) 1 mg Q15M PRN IM DECREASED GLUCOSE; Start 03/13/19 at 16:30 Glucose (Glutose) 15 gm Q15M PRN BUCCAL DECREASED GLUCOSE; Start 03/13/19 at 16:30 Lorazepam (Ativan) 0.5 mg QID PRN GTB ANXIETY Last administered on 04/11/19at 20:47; Admin Dose 0.5 MG; Start 03/23/19 at 20:00 Acetaminophen (Tylenol Liquid) 650 mg Q4H PRN GTB MILD PAIN(1-3)OR ELEVATED TEMP Last administered on 04/10/19 20:19; Admin Dose 650 MG; Start 03/23/19 at 20:00 Amlodipine Besylate (Norvasc) 5 mg BID GTB Last administered on 04/12/19 09:19; Admin Dose 5 MG; Start 03/26/19 at 21:00 Ascorbic Acid (Vitamin C) 500 mg DAILY GTB Last administered on 04/12/19 09:19; Admin Dose 500 MG; Start 03/27/19 at 09:00 Docusate Sodium (Colace Liquid Cup) 100 mg BID GTB Last administered on 04/12/19 09:18; Admin Dose 100 MG; Start 03/26/19 at 21:00 Folic Acid (Folic Acid) 1 mg DAILY GTB Last administered on 04/12/19 09:19; Admin Dose 1 MG; Start 03/27/19 at 09:00 Linagliptin (Tradjenta) 5 mg DAILY PO Last administered on 04/12/19 09:19; Admin Dose 5 MG; Start 03/27/19 at 09:00 Metoprolol Tartrate (Lopressor) 50 mg BID GTB Last administered on 04/12/19 09:19; Admin Dose 50 MG; Start 03/26/19 at 21:00 Atorvastatin Calcium (Lipitor) 40 mg HS GTB Last administered on 04/11/19 20:49; Admin Dose 40 MG; Start 03/26/19 at 21:00 Diagnostic Test (Pha) (Accu-Chek) 1 ea Q12 XX Last administered on 04/11/19at 20:47; Admin Dose 1 EA; Start 03/28/19 at 20:00 Morphine Sulfate (morphine) 2 mg Q6H PRN IV SEVERE PAIN LEVEL 7-10; Start 04/05/19 at 16:30 Caspofungin 50 mg/ Sodium Chloride 250 ml @ 250 mls/hr Q24H IVPB Last administered on 04/11/19 17:31; Admin Dose 250 MLS/HR; Start 04/08/19 at 17:00 Miscellaneous Information (*Order Clarification Bulletin) MEDICATION REQUIRES CLARIFICATI... Q8H XX ; Start 04/11/19 at 10:30; Stop 04/13/19 at 23:59 PHYLICIA HOLCOMB NP Apr 12, 2019 14:46
--- NOTE | 2019-04-12 15:23 | CONS ---
Assessment/Plan Assessment/Plan Assessment/Plan (Daily) 1. End-stage renal disease on hemodialysis. 2. Anemia of chronic disease 3. Urinary tract infection, now has yeast in urine. 4. Hypertension, controlled. 5. Dementia. 6. Diabetes mellitus type II. 7. Diastolic heart failure. 8. Moderate protein energy malnutrition with cachexia. 9. Osteoarthritis. 10. GT status 11. Had fever 3 days ago Assessment/Plan (Daily) - cw HD MWF, hd tmw -negative blood cultures from permacath, -Continue with epogen 4000 -iv abx per ID Consultation Date/Type/Reason Admit Date/Time Feb 19, 2019 at 01:01 Initial Consult Date Requesting Provider: JOSE RAUL ANDREWS MD Date/Time of Note DATE: 04/12/19 TIME: 15:22 24 HR Interval Summary Free Text/Dictation problem with G tube Exam/Review of Systems Exam Vitals Vital Signs Date Temp Pulse Resp B/P (MAP) Pulse Ox O2 O2 Flow FiO2 Time Delivery Rate 04/12/19 98.4 80 18 111/51 97 14:00 (71) 04/12/19 21 08:26 04/11/19 Room Air 09:47 Intake and Output 04/11/19 04/11/19 04/12/19 1515:00 23:00 07:00 IntakeIntake Total 250 ml OutputOutput Total 1900 ml BalanceBalance -1900 ml 250 ml Exam pt awake Neck: supple Respiratory: diminished breath sounds Gastrointestinal: soft, other (GT) left permcath Results Result Diagram: 04/10/1951804/10/19518 Results 24hrs Laboratory Tests Test 04/11/19 20:46 04/12/19 09:18 Bedside Glucose 174 174 Medications Medication Current Medications Epoetin Michael-epbx (Retacrit (Esrd)) 4,000 unit MoWeFr@1700 SC Last administered on 04/11/19at 17:37; Admin Dose 4,000 UNIT; Start 02/28/19 at 17:00 Olanzapine (Zyprexa) 2.5 mg DAILY GTB Last administered on 04/12/19at 09:19; Admin Dose 2.5 MG; Start 03/01/19 at 09:00 Lansoprazole (Prevacid) 30 mg BID@0600,1800 GTB Last administered on 04/12/19at 06:39; Admin Dose 30 MG; Start 02/28/19 at 18:00 Albuterol/ Ipratropium (Duoneb) 3 ml Q4H RESP THERAPY HHN Last administered on 04/12/19 08:26; Admin Dose 3 ML; Start 03/12/19 at 10:00 Albuterol/ Ipratropium (Duoneb) 3 ml Q2H RESP THERAPY PRN HHN SHORTNESS OF BREATH; Start 03/12/19 at 10:00 Miscellaneous Information 1 ea NOTE XX ; Start 03/13/19 at 16:30 Glucose (Glutose) 15 gm Q15M PRN PO DECREASED GLUCOSE; Start 03/13/19 at 16:30 Glucose (Glutose) 22.5 gm Q15M PRN PO DECREASED GLUCOSE; Start 03/13/19 at 16:30 Dextrose (D50w Syringe) 25 ml Q15M PRN IV DECREASED GLUCOSE; Start 03/13/19 at 16:30 Dextrose (D50w Syringe) 50 ml Q15M PRN IV DECREASED GLUCOSE; Start 03/13/19 at 16:30 Glucagon (Glucagen) 1 mg Q15M PRN IM DECREASED GLUCOSE; Start 03/13/19 at 16:30 Glucose (Glutose) 15 gm Q15M PRN BUCCAL DECREASED GLUCOSE; Start 03/13/19 at 16:30 Lorazepam (Ativan) 0.5 mg QID PRN GTB ANXIETY Last administered on 04/11/19at 20:47; Admin Dose 0.5 MG; Start 03/23/19 at 20:00 Acetaminophen (Tylenol Liquid) 650 mg Q4H PRN GTB MILD PAIN(1-3)OR ELEVATED TEMP Last administered on 04/10/19 20:19; Admin Dose 650 MG; Start 03/23/19 at 20:00 Amlodipine Besylate (Norvasc) 5 mg BID GTB Last administered on 04/12/19 09:19; Admin Dose 5 MG; Start 03/26/19 at 21:00 Ascorbic Acid (Vitamin C) 500 mg DAILY GTB Last administered on 04/12/19 09:19; Admin Dose 500 MG; Start 03/27/19 at 09:00 Docusate Sodium (Colace Liquid Cup) 100 mg BID GTB Last administered on 04/12/19 09:18; Admin Dose 100 MG; Start 03/26/19 at 21:00 Folic Acid (Folic Acid) 1 mg DAILY GTB Last administered on 04/12/19 09:19; Admin Dose 1 MG; Start 03/27/19 at 09:00 Linagliptin (Tradjenta) 5 mg DAILY PO Last administered on 04/12/19 09:19; Admin Dose 5 MG; Start 03/27/19 at 09:00 Metoprolol Tartrate (Lopressor) 50 mg BID GTB Last administered on 04/12/19 09:19; Admin Dose 50 MG; Start 03/26/19 at 21:00 Atorvastatin Calcium (Lipitor) 40 mg HS GTB Last administered on 04/11/19 20:49; Admin Dose 40 MG; Start 03/26/19 at 21:00 Diagnostic Test (Pha) (Accu-Chek) 1 ea Q12 XX Last administered on 04/11/19 20:47; Admin Dose 1 EA; Start 03/28/19 at 20:00 Morphine Sulfate (morphine) 2 mg Q6H PRN IV SEVERE PAIN LEVEL 7-10; Start 04/05/19 at 16:30 Caspofungin 50 mg/ Sodium Chloride 250 ml @ 250 mls/hr Q24H IVPB Last administered on 04/11/19 17:31; Admin Dose 250 MLS/HR; Start 04/08/19 at 17:00 Miscellaneous Information (*Order Clarification Bulletin) MEDICATION REQUIRES CLARIFICATI... Q8H XX ; Start 04/11/19 at 10:30; Stop 04/13/19 at 23:59 JOSE RAUL ANDREWS MD Apr 12, 2019 15:23
[2019-04-12] MEDS: CASPOFUNGIN 50 MG in SOD CHLORIDE 0.9% 250 ML IVPB SCH (17:10)
[2019-04-12 19:29] VITALS: BP 152/74; PULSE 91; RESP 16
[2019-04-12] MEDS: LORAZEPAM 0.5 MG TAB GTB PRN (21:32)
[2019-04-12] MEDS: ATORVASTATIN 40 MG TAB GTB SCH (21:33)
[2019-04-13] VITALS (15 sets, daily range): BP systolic 105–155; BP diastolic 53–94; PULSE 84–105; RESP 16–18
[2019-04-13] MEDS: morphine 2 MG INJ IV PRN (00:19)
[2019-04-13] MEDS: LANSOPRAZOLE 30 MG CAP GTB SCH ×2 (06:07→17:31)
[2019-04-13] MEDS: LINAGLIPTIN 5 MG TABLET PO SCH (08:30)
[2019-04-13] MEDS: DOCUSATE SODIUM 10 MG/ML (10ML CUP) GTB SCH ×2 (08:30→21:13)
[2019-04-13] MEDS: FOLIC ACID 1 MG TAB GTB SCH (08:30)
[2019-04-13] MEDS: ASCORBIC ACID 500 MG TAB GTB SCH (08:30)
[2019-04-13] MEDS: OLANZAPINE 2.5 MG TAB GTB SCH (08:30)
[2019-04-13] MEDS: METOPROLOL 50 MG TAB GTB SCH ×2 (08:37→21:12)
[2019-04-13] MEDS: AMLODIPINE 5 MG TAB GTB SCH ×2 (08:37→21:12)
[2019-04-13] MEDS: ACCU-CHEK XX SCH ×2 (08:38→21:23)
[2019-04-13] MEDS: LORAZEPAM 0.5 MG TAB GTB PRN (12:02)
--- NOTE | 2019-04-13 16:09 | CONS ---
Assessment/Plan Assessment/Plan Assessment/Plan (Daily) Assessment/Plan Assessment/Plan (Daily) 1. End-stage renal disease on hemodialysis. 2. Anemia of chronic disease 3. Urinary tract infection, now has yeast in urine. 4. Hypertension, controlled. 5. Dementia. 6. Diabetes mellitus type II. 7. Diastolic heart failure. 8. Moderate protein energy malnutrition with cachexia. 9. Osteoarthritis. 10. Malfunctioning G-tube Plan Continue present care We will change the G-tube in a.m. Consultation Date/Type/Reason Admit Date/Time Feb 19, 2019 at 01:01 Initial Consult Date 02/23/19 Requesting Provider: JOSE RAUL ANDREWS MD Date/Time of Note DATE: 04/13/19 TIME: 16:08 24 HR Interval Summary Constitutional: disoriented Exam/Review of Systems Exam Vitals Vital Signs Date Temp Pulse Resp B/P (MAP) Pulse Ox O2 O2 Flow FiO2 Time Delivery Rate 04/13/19 98.7 86 16 132/60 99 Room Air 13:44 (84) 04/12/19 21 08:26 Psych: confusion Musculoskeletal: nl extremities to inspection, nl gait and stance Extremities: normal pulses 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: GROUP WORK PROGRAM AIDE II-XII intact, nl mental status, nl speech, nl strength Results Result Diagram: 04/10/19 0519 04/13/19 0606 Results 24hrs Laboratory Tests Test 04/12/19 21:13 04/13/19 06:06 04/13/19 08:30 Bedside Glucose 190 155 Sodium Level 138 Potassium Level 3.8 Chloride Level 102 Carbon Dioxide Level 29 Anion Gap 7 Blood Urea Nitrogen 72 H Creatinine 2.00 H Est Glomerular Filtrat Rate mL/min Glucose Level 153 Calcium Level 8.3 L Medications Medication Current Medications Epoetin Michael-epbx (Retacrit (Esrd)) 4,000 unit MoWeFr@1700 SC Last administered on 04/11/19at 17:37; Admin Dose 4,000 UNIT; Start 02/28/19 at 17:00 Olanzapine (Zyprexa) 2.5 mg DAILY GTB Last administered on 04/13/19at 08:30; Admin Dose 2.5 MG; Start 03/01/19 at 09:00 Lansoprazole (Prevacid) 30 mg BID@0600,1800 GTB Last administered on 04/13/19at 06:07; Admin Dose 30 MG; Start 02/28/19 at 18:00 Albuterol/ Ipratropium (Duoneb) 3 ml Q2H RESP THERAPY PRN HHN SHORTNESS OF BREATH; Start 03/12/19 at 10:00 Miscellaneous Information 1 ea NOTE XX ; Start 03/13/19 at 16:30 Glucose (Glutose) 15 gm Q15M PRN PO DECREASED GLUCOSE; Start 03/13/19 at 16:30 Glucose (Glutose) 22.5 gm Q15M PRN PO DECREASED GLUCOSE; Start 03/13/19 at 16:30 Dextrose (D50w Syringe) 25 ml Q15M PRN IV DECREASED GLUCOSE; Start 03/13/19 at 16:30 Dextrose (D50w Syringe) 50 ml Q15M PRN IV DECREASED GLUCOSE; Start 03/13/19 at 16:30 Glucagon (Glucagen) 1 mg Q15M PRN IM DECREASED GLUCOSE; Start 03/13/19 at 16:30 Glucose (Glutose) 15 gm Q15M PRN BUCCAL DECREASED GLUCOSE; Start 03/13/19 at 16:30 Lorazepam (Ativan) 0.5 mg QID PRN GTB ANXIETY Last administered on 04/13/19 12:02; Admin Dose 0.5 MG; Start 03/23/19 at 20:00 Acetaminophen (Tylenol Liquid) 650 mg Q4H PRN GTB MILD PAIN(1-3)OR ELEVATED TEMP Last administered on 04/10/19 20:19; Admin Dose 650 MG; Start 03/23/19 at 20:00 Amlodipine Besylate (Norvasc) 5 mg BID GTB Last administered on 04/12/19at 21:33; Admin Dose 5 MG; Start 03/26/19 at 21:00 Ascorbic Acid (Vitamin C) 500 mg DAILY GTB Last administered on 04/13/19 08:30; Admin Dose 500 MG; Start 03/27/19 at 09:00 Docusate Sodium (Colace Liquid Cup) 100 mg BID GTB Last administered on 04/13/19 08:30; Admin Dose 100 MG; Start 03/26/19 at 21:00 Folic Acid (Folic Acid) 1 mg DAILY GTB Last administered on 04/13/19 08:30; Admin Dose 1 MG; Start 03/27/19 at 09:00 Linagliptin (Tradjenta) 5 mg DAILY PO Last administered on 04/13/19 08:30; Admin Dose 5 MG; Start 03/27/19 at 09:00 Metoprolol Tartrate (Lopressor) 50 mg BID GTB Last administered on 04/12/19 21:33; Admin Dose 50 MG; Start 03/26/19 at 21:00 Atorvastatin Calcium (Lipitor) 40 mg HS GTB Last administered on 04/12/19 21:33; Admin Dose 40 MG; Start 03/26/19 at 21:00 Diagnostic Test (Pha) (Accu-Chek) 1 ea Q12 XX Last administered on 04/12/19 21:34; Admin Dose 1 EA; Start 03/28/19 at 20:00 Morphine Sulfate (morphine) 2 mg Q6H PRN IV SEVERE PAIN LEVEL 7-10 Last administered on 04/13/19 00:19; Admin Dose 2 MG; Start 04/05/19 at 16:30 Caspofungin 50 mg/ Sodium Chloride 250 ml @ 250 mls/hr Q24H IVPB Last administered on 04/12/19at 17:10; Admin Dose 250 MLS/HR; Start 04/08/19 at 17:00 CHRISS WELCH MD Apr 13, 2019 16:09
--- NOTE | 2019-04-13 16:26 | CONS ---
Assessment/Plan Assessment/Plan Assessment/Plan (Daily) . End-stage renal disease on hemodialysis. 2. Anemia of chronic disease 3. Urinary tract infection, now has yeast in urine. 4. Hypertension, controlled. 5. Dementia. 6. Diabetes mellitus type II. 7. Diastolic heart failure. 8. Moderate protein energy malnutrition with cachexia. 9. Osteoarthritis. 10. GT status 11. Had fever 3 days ago Assessment/Plan (Daily) - cw HD MWF, hd today -negative blood cultures from permacath, -Continue with epogen 4000 - g tube in am -iv abx per ID Consultation Date/Type/Reason Admit Date/Time Feb 19, 2019 at 01:01 Initial Consult Date Requesting Provider: JOSE RAUL ANDREWS MD Date/Time of Note DATE: 04/13/19 TIME: 16:25 24 HR Interval Summary Free Text/Dictation hd today G Tube in am Exam/Review of Systems Exam Vitals Vital Signs Date Temp Pulse Resp B/P (MAP) Pulse Ox O2 O2 Flow FiO2 Time Delivery Rate 04/13/19 98.7 86 16 132/60 99 Room Air 13:44 (84) 04/12/19 21 08:26 Exam pt awake Neck: supple Respiratory: diminished breath sounds Gastrointestinal: soft, other (GT) left permcath Results Result Diagram: 04/10/19 0519 04/13/19 0606 Results 24hrs Laboratory Tests Test 04/12/19 21:13 04/13/19 06:06 04/13/19 08:30 Bedside Glucose 190 155 Sodium Level 138 Potassium Level 3.8 Chloride Level 102 Carbon Dioxide Level 29 Anion Gap 7 Blood Urea Nitrogen 72 H Creatinine 2.00 H Est Glomerular Filtrat Rate mL/min Glucose Level 153 Calcium Level 8.3 L Medications Medication Current Medications Epoetin Michael-epbx (Retacrit (Esrd)) 4,000 unit MoWeFr@1700 SC Last administered on 04/11/19at 17:37; Admin Dose 4,000 UNIT; Start 02/28/19 at 17:00 Olanzapine (Zyprexa) 2.5 mg DAILY GTB Last administered on 04/13/19at 08:30; Admin Dose 2.5 MG; Start 03/01/19 at 09:00 Lansoprazole (Prevacid) 30 mg BID@0600,1800 GTB Last administered on 04/13/19at 06:07; Admin Dose 30 MG; Start 02/28/19 at 18:00 Albuterol/ Ipratropium (Duoneb) 3 ml Q2H RESP THERAPY PRN HHN SHORTNESS OF BREATH; Start 03/12/19 at 10:00 Miscellaneous Information 1 ea NOTE XX ; Start 03/13/19 at 16:30 Glucose (Glutose) 15 gm Q15M PRN PO DECREASED GLUCOSE; Start 03/13/19 at 16:30 Glucose (Glutose) 22.5 gm Q15M PRN PO DECREASED GLUCOSE; Start 03/13/19 at 16:30 Dextrose (D50w Syringe) 25 ml Q15M PRN IV DECREASED GLUCOSE; Start 03/13/19 at 16:30 Dextrose (D50w Syringe) 50 ml Q15M PRN IV DECREASED GLUCOSE; Start 03/13/19 at 16:30 Glucagon (Glucagen) 1 mg Q15M PRN IM DECREASED GLUCOSE; Start 03/13/19 at 16:30 Glucose (Glutose) 15 gm Q15M PRN BUCCAL DECREASED GLUCOSE; Start 03/13/19 at 16:30 Lorazepam (Ativan) 0.5 mg QID PRN GTB ANXIETY Last administered on 04/13/19 12:02; Admin Dose 0.5 MG; Start 03/23/19 at 20:00 Acetaminophen (Tylenol Liquid) 650 mg Q4H PRN GTB MILD PAIN(1-3)OR ELEVATED TEMP Last administered on 04/10/19 20:19; Admin Dose 650 MG; Start 03/23/19 at 20:00 Amlodipine Besylate (Norvasc) 5 mg BID GTB Last administered on 04/12/19 21:33; Admin Dose 5 MG; Start 03/26/19 at 21:00 Ascorbic Acid (Vitamin C) 500 mg DAILY GTB Last administered on 04/13/19 08:30; Admin Dose 500 MG; Start 03/27/19 at 09:00 Docusate Sodium (Colace Liquid Cup) 100 mg BID GTB Last administered on 04/13/19 08:30; Admin Dose 100 MG; Start 03/26/19 at 21:00 Folic Acid (Folic Acid) 1 mg DAILY GTB Last administered on 04/13/19 08:30; Admin Dose 1 MG; Start 03/27/19 at 09:00 Linagliptin (Tradjenta) 5 mg DAILY PO Last administered on 04/13/19 08:30; Admin Dose 5 MG; Start 03/27/19 at 09:00 Metoprolol Tartrate (Lopressor) 50 mg BID GTB Last administered on 04/12/19 21:33; Admin Dose 50 MG; Start 03/26/19 at 21:00 Atorvastatin Calcium (Lipitor) 40 mg HS GTB Last administered on 04/12/19 21:33; Admin Dose 40 MG; Start 03/26/19 at 21:00 Diagnostic Test (Pha) (Accu-Chek) 1 ea Q12 XX Last administered on 04/12/19 21:34; Admin Dose 1 EA; Start 03/28/19 at 20:00 Morphine Sulfate (morphine) 2 mg Q6H PRN IV SEVERE PAIN LEVEL 7-10 Last administered on 04/13/19 00:19; Admin Dose 2 MG; Start 04/05/19 at 16:30 Caspofungin 50 mg/ Sodium Chloride 250 ml @ 250 mls/hr Q24H IVPB Last admin istered on 04/12/19 17:10; Admin Dose 250 MLS/HR; Start 04/08/19 at 17:00 JOSE RAUL ANDREWS MD Apr 13, 2019 16:26
--- NOTE | 2019-04-13 16:34 | CONS ---
Assessment/Plan Assessment/Plan Hospital Course (Demo Recall) No acute changes, awake, looks comfortable Blood cx neg, urine culture +yeast Antimicrobials: Cancidas Indwelling: Left subclavian permacath, PEG Physical examination: This is a chronically ill-appearing wasted elderly woman who is in no distress. Head atraumatic normocephalic. Neck is supple. Chest rise symmetrical patient is mildly tachypneic with expiratory wheezes. Heart: S1-S2, tachycardic. Abdomen soft bowel sounds present. Extremities without cyanosis edema. Assessment: 1. Systemic inflammatory response syndrome with low-grade fevers, rule out aspiration versus recurrent UTI 2. Status post recurrent UTI and bacteremia 4. End-stage renal disease, hemodialysis dependent 5. Anemia 6. 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 Plan: Clinically unchanged, stable, continue Rx, aspiration measures Consultation Date/Type/Reason Admit Date/Time Feb 19, 2019 at 01:01 Initial Consult Date Type of Consult id Requesting Provider: JOSE RAUL ANDREWS MD Date/Time of Note DATE: 04/13/19 TIME: 16:34 Exam/Review of Systems Exam Vitals Vital Signs Date Temp Pulse Resp B/P (MAP) Pulse Ox O2 O2 Flow FiO2 Time Delivery Rate 04/13/19 98.7 86 16 132/60 99 Room Air 13:44 (84) 04/12/19 21 08:26 Results Result Diagram: 04/10/19 0519 04/13/19 0606 Results 24hrs Laboratory Tests Test 04/12/19 21:13 04/13/19 06:06 04/13/19 08:30 Bedside Glucose 190 155 Sodium Level 138 Potassium Level 3.8 Chloride Level 102 Carbon Dioxide Level 29 Anion Gap 7 Blood Urea Nitrogen 72 H Creatinine 2.00 H Est Glomerular Filtrat Rate mL/min Glucose Level 153 Calcium Level 8.3 L Medications Medication Current Medications Epoetin Michael-epbx (Retacrit (Esrd)) 4,000 unit MoWeFr@1700 SC Last administered on 04/11/19at 17:37; Admin Dose 4,000 UNIT; Start 02/28/19 at 17:00 Olanzapine (Zyprexa) 2.5 mg DAILY GTB Last administered on 04/13/19at 08:30; Admin Dose 2.5 MG; Start 03/01/19 at 09:00 Lansoprazole (Prevacid) 30 mg BID@0600,1800 GTB Last administered on 04/13/19at 06:07; Admin Dose 30 MG; Start 02/28/19 at 18:00 Albuterol/ Ipratropium (Duoneb) 3 ml Q2H RESP THERAPY PRN HHN SHORTNESS OF BREATH; Start 03/12/19 at 10:00 Miscellaneous Information 1 ea NOTE XX ; Start 03/13/19 at 16:30 Glucose (Glutose) 15 gm Q15M PRN PO DECREASED GLUCOSE; Start 03/13/19 at 16:30 Glucose (Glutose) 22.5 gm Q15M PRN PO DECREASED GLUCOSE; Start 03/13/19 at 16:30 Dextrose (D50w Syringe) 25 ml Q15M PRN IV DECREASED GLUCOSE; Start 03/13/19 at 16:30 Dextrose (D50w Syringe) 50 ml Q15M PRN IV DECREASED GLUCOSE; Start 03/13/19 at 16:30 Glucagon (Glucagen) 1 mg Q15M PRN IM DECREASED GLUCOSE; Start 03/13/19 at 16:30 Glucose (Glutose) 15 gm Q15M PRN BUCCAL DECREASED GLUCOSE; Start 03/13/19 at 16:30 Lorazepam (Ativan) 0.5 mg QID PRN GTB ANXIETY Last administered on 04/13/19at 12:02; Admin Dose 0.5 MG; Start 03/23/19 at 20:00 Acetaminophen (Tylenol Liquid) 650 mg Q4H PRN GTB MILD PAIN(1-3)OR ELEVATED TEMP Last administered on 04/10/19at 20:19; Admin Dose 650 MG; Start 03/23/19 at 20:00 Amlodipine Besylate (Norvasc) 5 mg BID GTB Last administered on 04/12/19at 21:33; Admin Dose 5 MG; Start 03/26/19 at 21:00 Ascorbic Acid (Vitamin C) 500 mg DAILY GTB Last administered on 04/13/19at 08:30; Admin Dose 500 MG; Start 03/27/19 at 09:00 Docusate Sodium (Colace Liquid Cup) 100 mg BID GTB Last administered on 04/13/19at 08:30; Admin Dose 100 MG; Start 03/26/19 at 21:00 Folic Acid (Folic Acid) 1 mg DAILY GTB Last administered on 04/13/19 08:30; Admin Dose 1 MG; Start 03/27/19 at 09:00 Linagliptin (Tradjenta) 5 mg DAILY PO Last administered on 04/13/19 08:30; Admin Dose 5 MG; Start 03/27/19 at 09:00 Metoprolol Tartrate (Lopressor) 50 mg BID GTB Last administered on 04/12/19 21:33; Admin Dose 50 MG; Start 03/26/19 at 21:00 Atorvastatin Calcium (Lipitor) 40 mg HS GTB Last administered on 04/12/19 21:33; Admin Dose 40 MG; Start 03/26/19 at 21:00 Diagnostic Test (Pha) (Accu-Chek) 1 ea Q12 XX Last administered on 04/12/19 2 1:34; Admin Dose 1 EA; Start 03/28/19 at 20:00 Morphine Sulfate (morphine) 2 mg Q6H PRN IV SEVERE PAIN LEVEL 7-10 Last administered on 04/13/19 00:19; Admin Dose 2 MG; Start 04/05/19 at 16:30 Caspofungin 50 mg/ Sodium Chloride 250 ml @ 250 mls/hr Q24H IVPB Last administered on 04/12/19 17:10; Admin Dose 250 MLS/HR; Start 04/08/19 at 17:00 PHYLICIA HOLCOMB NP Apr 13, 2019 16:34
--- NOTE | 2019-04-13 17:12 | PN ---
DATE: 04/13/2019 SUBJECTIVE: The patient is seen. Case discussed with nursing staff. The tip of the G-tube, there m ay be some malfunction. I told to contact Dr. Baird, but otherwise, feedings are being given via G- tube. PHYSICAL EXAMINATION: VITAL SIGNS: Temperature is 99.1, otherwise afebrile, pulse 85, respirations 16, blood pressure 137/ 53, saturation 100%. GENERAL: No acute distress. The patient is pale. The patient is overall very weak, cachectic. Her BMI is 16.4. CARDIOVASCULAR: S1 and S2. Regular rate. LUNGS: Clear. ABDOMEN: Soft. G-tube in place. EXTREMITIES: No clubbing, cyanosis or edema. LABORATORY DATA: There are labs today for the basic metabolic panel: Sodium 138, potassium 3.8, chl oride 102, bicarb 29, BUN is 72, creatinine of 2.0, glucose of 153. Last CBC was done on 04/10, show s a hemoglobin of 7.8. MEDICATIONS: Reviewed. They include: 1. Caspofungin IV daily. 2. Morphine sulfate p.r.n. 3. Accu-Chek as directed. 4. Vitamin C 500 mg daily. 5. Folic acid 1 mg daily. 6. Tradjenta 5 mg daily. 7. Norvasc 5 mg daily. 8. Colace 100 b.i.d. 9. Lopressor 50 b.i.d. 10. Lipitor 40 at bedtime. 11. Ativan p.r.n. 12. Tylenol p.r.n. 13. Hypoglycemia protocol as directed. 14. DuoNeb every 2 hours p.r.n. 15. Zyprexa 2.5 daily. 16. Prevacid 30 mg b.i.d. 17. Epogen as directed. ASSESSMENT AND PLAN: This is an 83-year-old unfortunate [place]ian female with end-stage renal disease , vascular dementia, hypertension, diabetes mellitus, anemia, status post treatment for bacteremia, p neumonia and urinary tract infection. 1. Respiratory. O2 support as needed. Currently off oxygen, breathing comfortably. Recent chest x -ray shows improvement. 2. Cardiovascular. Off blood thinners. Vitals are stable. 3. Anemia. Continue Epogen and iron supplements. Monitor H and H. Transfuse p.r.n. 4. Diabetes mellitus, on Lantus and Tradjenta. Glucose level in the 100s. Continue the same. 5. Urinary tract infection. Organism: Dominique glabrata. Continue IV Cancidas. 6. End-stage renal disease. The patient was dialyzed today. Monitor electrolytes. 7. Psychiatric disorder. Continue Zyprexa. Mood appears to be stable. 8. Malnutrition and dysphagia. Continue G-tube feeding at 30 mL/hr, tolerating it well. Head eleva tion. 9. home care manager is assisting with placement. This is challenging as patient needs to be monitored w ith a sitter as she is at risk of fall. We will follow. Dictated By: DYLON HULL/MADAN Conf#: [id number] DID#: [id number]
[2019-04-13] MEDS: CASPOFUNGIN 50 MG in SOD CHLORIDE 0.9% 250 ML IVPB SCH (17:31)
[2019-04-13] MEDS: EPOETIN ALFA-EPBX (ESRD) 4,000 UNIT/ML VIAL SC SCH (17:49)
[2019-04-13] MEDS: ATORVASTATIN 40 MG TAB GTB SCH (21:12)
[2019-04-13] MEDS: ACETAMINOPHEN 650MG/20.3ML CUP GTB PRN (21:13)
[2019-04-14 02:00] VITALS: BP 147/63; PULSE 75; RESP 18
[2019-04-14] MEDS: LANSOPRAZOLE 30 MG CAP GTB SCH ×2 (06:42→17:10)
[2019-04-14 07:36] VITALS: BP 157/75; PULSE 79; RESP 24
[2019-04-14 08:24] VITALS: BP 146/68; PULSE 72; RESP 72
[2019-04-14] MEDS: FOLIC ACID 1 MG TAB GTB SCH (08:49)
[2019-04-14] MEDS: DOCUSATE SODIUM 10 MG/ML (10ML CUP) GTB SCH ×2 (08:49→21:00)
[2019-04-14] MEDS: METOPROLOL 50 MG TAB GTB SCH ×2 (08:49→21:01)
[2019-04-14] MEDS: ASCORBIC ACID 500 MG TAB GTB SCH (08:49)
[2019-04-14] MEDS: AMLODIPINE 5 MG TAB GTB SCH ×2 (08:50→21:02)
[2019-04-14] MEDS: OLANZAPINE 2.5 MG TAB GTB SCH (08:50)
[2019-04-14] MEDS: LINAGLIPTIN 5 MG TABLET PO SCH (08:52)
[2019-04-14] MEDS: ACCU-CHEK XX SCH ×2 (08:53→21:02)
[2019-04-14] MEDS: LORAZEPAM 0.5 MG TAB GTB PRN (13:22)
--- NOTE | 2019-04-14 14:09 | CONS ---
Assessment/Plan Assessment/Plan Hospital Course (Demo Recall) No acute changes, awake, looks comfortable Blood cx neg, urine culture +yeast Antimicrobials: Cancidas Indwelling: Left subclavian permacath, PEG Physical examination: This is a chronically ill-appearing wasted elderly woman who is in no distress. Head atraumatic normocephalic. Neck is supple. Chest rise symmetrical patient is mildly tachypneic with expiratory wheezes. Heart: S1-S2, tachycardic. Abdomen soft bowel sounds present. Extremities without cyanosis edema. Assessment: 1. Systemic inflammatory response syndrome with low-grade fevers, rule out aspiration versus recurrent UTI 2. Status post recurrent UTI and bacteremia 4. End-stage renal disease, hemodialysis dependent 5. Anemia 6. 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 Plan: Clinically unchanged, stable, continue Rx, aspiration measures Consultation Date/Type/Reason Admit Date/Time Feb 19, 2019 at 01:01 Initial Consult Date Type of Consult id Requesting Provider: JOSE RAUL ANDREWS MD Date/Time of Note DATE: 04/14/19 TIME: 14:09 Exam/Review of Systems Exam Vitals Vital Signs Date Temp Pulse Resp B/P (MAP) Pulse Ox O2 O2 Flow FiO2 Time Delivery Rate 04/14/19 72 146/68 08:24 (94) 04/14/19 97.7 99 07:36 04/14/19 Room Air 02:00 04/12/19 21 08:26 Intake and Output 04/13/19 04/13/19 04/14/19 1515:00 23:00 07:00 IntakeIntake Total 250 ml OutputOutput Total 1000 ml BalanceBalance -1000 ml 250 ml Results Result Diagram: 04/14/19 0851 04/14/19 0851 Results 24hrs Laboratory Tests Test 04/13/19 21:03 04/14/19 08:51 04/14/19 08:52 Bedside Glucose 159 134 White Blood Count 7.4 Red Blood Count 3.12 L Hemoglobin 8.1 L Hematocrit 26.0 L Mean Corpuscular Volume 83.3 Mean Corpuscular Hemoglobin 26.0 L Mean Corpuscular Hemoglobin Concent 31.2 L Red Cell Distribution Width 16.5 H Platelet Count 241 Mean Platelet Volume 11.9 H Immature Granulocytes % 0.700 H Neutrophils % 67.2 Lymphocytes % 11.3 L Monocytes % 10.2 Eosinophils % 10.2 H Basophils % 0.4 Nucleated Red Blood Cells % 0.7 H Immature Granulocytes # 0.050 H Neutrophils # 5.0 Lymphocytes # 0.8 Monocytes # 0.8 Eosinophils # 0.8 H Basophils # 0.0 Nucleated Red Blood Cells # 0.1 H Sodium Level 138 Potassium Level 4.0 Chloride Level 102 Carbon Dioxide Level 30 Anion Gap 6 Blood Urea Nitrogen 50 H Creatinine 1.34 H Est Glomerular Filtrat Rate mL/min Glucose Level 132 Calcium Level 8.3 L Medications Medication Current Medications Epoetin Michael-epbx (Retacrit (Esrd)) 4,000 unit MoWeFr@1700 SC Last administered on 04/13/19at 17:49; Admin Dose 4,000 UNIT; Start 02/28/19 at 17:00 Olanzapine (Zyprexa) 2.5 mg DAILY GTB Last administered on 04/14/19at 08:50; Admin Dose 2.5 MG; Start 03/01/19 at 09:00 Lansoprazole (Prevacid) 30 mg BID@0600,1800 GTB Last administered on 04/14/19at 06:42; Admin Dose 30 MG; Start 02/28/19 at 18:00 Albuterol/ Ipratropium (Duoneb) 3 ml Q2H RESP THERAPY PRN HHN SHORTNESS OF BREATH; Start 03/12/19 at 10:00 Miscellaneous Information 1 ea NOTE XX ; Start 03/13/19 at 16:30 Glucose (Glutose) 15 gm Q15M PRN PO DECREASED GLUCOSE; Start 03/13/19 at 16:30 Glucose (Glutose) 22.5 gm Q15M PRN PO DECREASED GLUCOSE; Start 03/13/19 at 16:30 Dextrose (D50w Syringe) 25 ml Q15M PRN IV DECREASED GLUCOSE; Start 03/13/19 at 16:30 Dextrose (D50w Syringe) 50 ml Q15M PRN IV DECREASED GLUCOSE; Start 03/13/19 at 16:30 Glucagon (Glucagen) 1 mg Q15M PRN IM DECREASED GLUCOSE; Start 03/13/19 at 16:30 Glucose (Glutose) 15 gm Q15M PRN BUCCAL DECREASED GLUCOSE; Start 03/13/19 at 16 :30 Lorazepam (Ativan) 0.5 mg QID PRN GTB ANXIETY Last administered on 04/14/19 13:22; Admin Dose 0.5 MG; Start 03/23/19 at 20:00 Acetaminophen (Tylenol Liquid) 650 mg Q4H PRN GTB MILD PAIN(1-3)OR ELEVATED TEMP Last administered on 04/13/19 21:13; Admin Dose 650 MG; Start 03/23/19 at 20:00 Amlodipine Besylate (Norvasc) 5 mg BID GTB Last administered on 04/14/19 08:50; Admin Dose 5 MG; Start 03/26/19 at 21:00 Ascorbic Acid (Vitamin C) 500 mg DAILY GTB Last administered on 04/14/19 08:49; Admin Dose 500 MG; Start 03/27/19 at 09:00 Docusate Sodium (Colace Liquid Cup) 100 mg BID GTB Last administered on 04/14/19 08:49; Admin Dose 100 MG; Start 03/26/19 at 21:00 Folic Acid (Folic Acid) 1 mg DAILY GTB Last administered on 04/14/19 08:49; Admin Dose 1 MG; Start 03/27/19 at 09:00 Linagliptin (Tradjenta) 5 mg DAILY PO Last administered on 04/14/19 08:52; Admin Dose 5 MG; Start 03/27/19 at 09:00 Metoprolol Tartrate (Lopressor) 50 mg BID GTB Last administered on 04/14/19 08:49; Admin Dose 50 MG; Start 03/26/19 at 21:00 Atorvastatin Calcium (Lipitor) 40 mg HS GTB Last administered on 04/13/19 21:12; Admin Dose 40 MG; Start 03/26/19 at 21:00 Diagnostic Test (Pha) (Accu-Chek) 1 ea Q12 XX Last administered on 04/13/19 21:23; Admin Dose 1 EA; Start 03/28/19 at 20:00 Morphine Sulfate (morphine) 2 mg Q6H PRN IV SEVERE PAIN LEVEL 7-10 Last administered on 04/13/19 00:19; Admin Dose 2 MG; Start 04/05/19 at 16:30 Caspofungin 50 mg/ Sodium Chloride 250 ml @ 250 mls/hr Q24H IVPB Last a dministered on 04/13/19 17:31; Admin Dose 250 MLS/HR; Start 04/08/19 at 17:00 PHYLICIA HOLCOMB NP Apr 14, 2019 14:09
[2019-04-14 14:17] VITALS: BP 150/61; PULSE 77; RESP 24
--- NOTE | 2019-04-14 14:54 | CONS ---
Assessment/Plan Assessment/Plan Assessment/Plan (Daily) ssessment/Plan (Daily) 1. End-stage renal disease on hemodialysis. 2. Anemia of chronic disease 3. Urinary tract infection, now has yeast in urine. 4. Hypertension, controlled. 5. Dementia. 6. Diabetes mellitus type II. 7. Diastolic heart failure. 8. Moderate protein energy malnutrition with cachexia. 9. Osteoarthritis. 10. GT status 11. Had fever 3 days ago 12 left knee swelling Assessment/Plan (Daily) - cw HD MWF, hd tmw - xray left knee pending - G tube replacement -negative blood cultures from permacath, -Continue with epogen 4000 -iv abx per ID Consultation Date/Type/Reason Admit Date/Time Feb 19, 2019 at 01:01 Initial Consult Date Requesting Provider: JOSE RAUL ANDREWS MD Date/Time of Note DATE: 04/14/19 TIME: 14:52 24 HR Interval Summary Free Text/Dictation Swelling. OF Left knee Exam/Review of Systems Exam Vitals Vital Signs Date Temp Pulse Resp B/P (MAP) Pulse Ox O2 O2 Flow FiO2 Time Delivery Rate 04/14/19 97.5 77 24 150/61 100 14:17 (90) 04/14/19 Room Air 02:00 04/12/19 21 08:26 Intake and Output 04/13/19 04/13/19 04/14/19 1515:00 23:00 07:00 IntakeIntake Total 250 ml OutputOutput Total 1000 ml BalanceBalance -1000 ml 250 ml Exam pt awake Neck: supple Respiratory: diminished breath sounds Gastrointestinal: soft, other (GT) left permcath left knee swelling Results Results Result Diagram: 04/14/19 0851 04/14/19 0851 Results 24hrs Laboratory Tests Test 04/13/19 21:03 04/14/19 08:51 04/14/19 08:52 Bedside Glucose 159 134 White Blood Count 7.4 Red Blood Count 3.12 L Hemoglobin 8.1 L Hematocrit 26.0 L Mean Corpuscular Volume 83.3 Mean Corpuscular Hemoglobin 26.0 L Mean Corpuscular Hemoglobin Concent 31.2 L Red Cell Distribution Width 16.5 H Platelet Count 241 Mean Platelet Volume 11.9 H Immature Granulocytes % 0.700 H Neutrophils % 67.2 Lymphocytes % 11.3 L Monocytes % 10.2 Eosinophils % 10.2 H Basophils % 0.4 Nucleated Red Blood Cells % 0.7 H Immature Granulocytes # 0.050 H Neutrophils # 5.0 Lymphocytes # 0.8 Monocytes # 0.8 Eosinophils # 0.8 H Basophils # 0.0 Nucleated Red Blood Cells # 0.1 H Sodium Level 138 Potassium Level 4.0 Chloride Level 102 Carbon Dioxide Level 30 Anion Gap 6 Blood Urea Nitrogen 50 H Creatinine 1.34 H Est Glomerular Filtrat Rate mL/min Glucose Level 132 Calcium Level 8.3 L Medications Medication Current Medications Epoetin Michael-epbx (Retacrit (Esrd)) 4,000 unit MoWeFr@1700 SC Last administered on 04/13/19at 17:49; Admin Dose 4,000 UNIT; Start 02/28/19 at 17:00 Olanzapine (Zyprexa) 2.5 mg DAILY GTB Last administered on 04/14/19at 08:50; Admin Dose 2.5 MG; Start 03/01/19 at 09:00 Lansoprazole (Prevacid) 30 mg BID@0600,1800 GTB Last administered on 04/14/19at 06:42; Admin Dose 30 MG; Start 02/28/19 at 18:00 Albuterol/ Ipratropium (Duoneb) 3 ml Q2H RESP THERAPY PRN HHN SHORTNESS OF BREATH; Start 03/12/19 at 10:00 Miscellaneous Information 1 ea NOTE XX ; Start 03/13/19 at 16:30 Glucose (Glutose) 15 gm Q15M PRN PO DECREASED GLUCOSE; Start 03/13/19 at 16:30 Glucose (Glutose) 22.5 gm Q15M PRN PO DECREASED GLUCOSE; Start 03/13/19 at 16:30 Dextrose (D50w Syringe) 25 ml Q15M PRN IV DECREASED GLUCOSE; Start 03/13/19 at 16:30 Dextrose (D50w Syringe) 50 ml Q15M PRN IV DECREASED GLUCOSE; Start 03/13/19 at 16:30 Glucagon (Glucagen) 1 mg Q15M PRN IM DECREASED GLUCOSE; Start 03/13/19 at 16:30 Glucose (Glutose) 15 gm Q15M PRN BUCCAL DECREASED GLUCOSE; Start 03/13/19 at 16:30 Lorazepam (Ativan) 0.5 mg QID PRN GTB ANXIETY Last administered on 04/14/19at 13:22; Admin Dose 0.5 MG; Start 03/23/19 at 20:00 Acetaminophen (Tylenol Liquid) 650 mg Q4H PRN GTB MILD PAIN(1-3)OR ELEVATED TEMP Last administered on 04/13/19 21:13; Admin Dose 650 MG; Start 03/23/19 at 2 0:00 Amlodipine Besylate (Norvasc) 5 mg BID GTB Last administered on 04/14/19 08:50; Admin Dose 5 MG; Start 03/26/19 at 21:00 Ascorbic Acid (Vitamin C) 500 mg DAILY GTB Last administered on 04/14/19 08:49; Admin Dose 500 MG; Start 03/27/19 at 09:00 Docusate Sodium (Colace Liquid Cup) 100 mg BID GTB Last administered on 04/14/19 08:49; Admin Dose 100 MG; Start 03/26/19 at 21:00 Folic Acid (Folic Acid) 1 mg DAILY GTB Last administered on 04/14/19 08:49; Admin Dose 1 MG; Start 03/27/19 at 09:00 Linagliptin (Tradjenta) 5 mg DAILY PO Last administered on 04/14/19 08:52; Admin Dose 5 MG; Start 03/27/19 at 09:00 Metoprolol Tartrate (Lopressor) 50 mg BID GTB Last administered on 04/14/19 08:49; Admin Dose 50 MG; Start 03/26/19 at 21:00 Atorvastatin Calcium (Lipitor) 40 mg HS GTB Last administered on 04/13/19 21:12; Admin Dose 40 MG; Start 03/26/19 at 21:00 Diagnostic Test (Pha) (Accu-Chek) 1 ea Q12 XX Last administered on 04/13/19 21:23; Admin Dose 1 EA; Start 03/28/19 at 20:00 Morphine Sulfate (morphine) 2 mg Q6H PRN IV SEVERE PAIN LEVEL 7-10 Last administered on 04/13/19 00:19; Admin Dose 2 MG; Start 04/05/19 at 16:30 Caspofungin 50 mg/ Sodium Chloride 250 ml @ 250 mls/hr Q24H IVPB Last administered on 04/13/19 17:31; Admin Dose 250 MLS/HR; Start 04/08/19 at 17:00 JOSE RAUL ANDREWS MD Apr 14, 2019 14:54
--- NOTE | 2019-04-14 15:01 | PN ---
DATE: 04/14/2019 SUBJECTIVE: The patient was seen, comfortable. She has a sitter. The patient is awake, alert, no a cute issues. PHYSICAL EXAMINATION: VITAL SIGNS: Temperature 97.7, pulse 72, respirations 24, blood pressure 146/68, saturation is 100%. GENERAL: No acute distress. HEENT: The patient is pale. CARDIOVASCULAR: S1 and S2. Regular rate. LUNGS: Clear. ABDOMEN: Soft, nontender. EXTREMITIES: No clubbing, cyanosis or edema. LABORATORY DATA: Today show a white count of 7.4, hemoglobin 8.1, hematocrit 26, platelet count is 2 41 with normal differential. Chemistry: Sodium 138, potassium 4.0, chloride 102, bicarbonate 30, BU N is 50, creatinine 1.34, glucose of 132. CURRENT MEDICATIONS: All reviewed. They include: 1. Caspofungin. 2. Morphine p.r.n. 3. Vitamin C 500 mg daily. 4. Folic acid 1 mg daily. 5. Tradjenta 5 mg daily. 6. Norvasc 5 mg b.i.d. 7. Colace 100 b.i.d. 8. Lopressor 50 b.i.d. 9. Lipitor 40 mg at bedtime. 10. Ativan p.r.n. 11. Tylenol p.r.n. 12. Hypoglycemia protocol as directed. 13. Zyprexa 2.5 daily. 14. Prevacid 30 mg b.i.d. 15. Epogen as directed. ASSESSMENT AND PLAN: This is an 83-year-old [place] female with end-stage renal disease, vascular d ementia, hypertension, diabetes mellitus, anemia, status post treated for bacteremia, pneumonia and u rinary tract infection. 1. Respiratory: Continue O2 support p.r.n., off oxygen currently as she is overall breathing comfor tably. Recent chest x-ray shows improvement. 2. Cardiovascular: Off blood thinners due to need for transfusion. Vitals are otherwise stable. M ay titrate blood pressure medication up if needed. 3. Anemia. Continue Epogen and iron supplements. Currently, no need for transfusion. Check H and H periodically. 4. Diabetes mellitus on Tradjenta and Lantus. Glucose levels remained in the 100s. 5. Urinary tract infection. Dominique glabrata is the organism. Continue IV Cancidas. ID is followi ng. 6. End-stage renal disease. Next dialysis planned for tomorrow. 7. Psychiatric disorder, on Zyprexa. Mood appears to be stable. 8. Malnutrition and dysphagia. Maximum nutrition support. Continue G-tube feeding, tolerating it w ell. Head elevation. 9. manager research and development is assisting with placement option such [place] . Dictated By: DYLON HULL/MADAN Conf#: [id number] DID#: [id number] CC: JOSE RAUL ANDREWS;*EndCC*
[2019-04-14] MEDS: CASPOFUNGIN 50 MG in SOD CHLORIDE 0.9% 250 ML IVPB SCH (17:10)
[2019-04-14 20:13] VITALS: BP 149/67; PULSE 95; RESP 19
[2019-04-14] MEDS: ACETAMINOPHEN 650MG/20.3ML CUP GTB PRN (21:00)
[2019-04-14] MEDS: ATORVASTATIN 40 MG TAB GTB SCH (21:01)
--- NOTE | 2019-04-14 21:36 | CONS ---
Assessment/Plan Assessment/Plan Assessment/Plan (Daily) Assessment/Plan Assessment/Plan (Daily) Assessment/Plan Assessment/Plan (Daily) 1. End-stage renal disease on hemodialysis. 2. Anemia of chronic disease 3. Urinary tract infection, now has yeast in urine. 4. Hypertension, controlled. 5. Dementia. 6. Diabetes mellitus type II. 7. Diastolic heart failure. 8. Moderate protein energy malnutrition with cachexia. 9. Osteoarthritis. 10. Malfunctioning G-tube Plan Continue present care We will change the G-tube in a.m. Patient is tolerating feeding and will change the G-tube tomorrow Consultation Date/Type/Reason Admit Date/Time Feb 19, 2019 at 01:01 Initial Consult Date 02/23/19 Requesting Provider: JOSE RAUL ANDREWS MD Date/Time of Note DATE: 04/14/19 TIME: 21:36 24 HR Interval Summary Constitutional: disoriented Exam/Review of Systems Exam Vitals Vital Signs Date Temp Pulse Resp B/P (MAP) Pulse Ox O2 O2 Flow FiO2 Time Delivery Rate 04/14/19 99.3 95 19 149/67 100 Room Air 20:13 (94) 04/12/19 21 08:26 Intake and Output 04/13/19 04/13/19 04/14/19 1515:00 23:00 07:00 IntakeIntake Total 250 ml OutputOutput Total 1000 ml BalanceBalance -1000 ml 250 ml Constitutional: alert, oriented, well developed Psych: no complaints, nl mood/affect Head: normocephalic, atraumatic Eyes: nl conjunctiva, EOMI, nl lids, nl sclera, PERRL ENMT: nl external ears & nose, nl lips & teeth, nl nasal mucosa & septum Neck: supple, non-tender Respiratory: clear to auscultation, normal air movement Cardiovascular: regular rate and rhythm, nl pulses Gastrointestinal: soft, nl liver, spleen, non-tender Musculoskeletal: nl extremities to inspection, nl gait and stance Extremities: normal pulses 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: SENIOR ANALYST PROGRAMMER II-XII intact, nl mental status, nl speech, nl strength Skin: nl turgor; No rash or lesions Lymph: nl lymph nodes Results Result Diagram: 04/14/19 0851 04/14/19 0851 Results 24hrs Laboratory Tests Test 04/14/19 08:51 04/14/19 08:52 04/14/19 21:00 White Blood Count 7.4 Red Blood Count 3.12 L Hemoglobin 8.1 L Hematocrit 26.0 L Mean Corpuscular Volume 83.3 Mean Corpuscular Hemoglobin 26.0 L Mean Corpuscular Hemoglobin Concent 31.2 L Red Cell Distribution Width 16.5 H Platelet Count 241 Mean Platelet Volume 11.9 H Immature Granulocytes % 0.700 H Neutrophils % 67.2 Lymphocytes % 11.3 L Monocytes % 10.2 Eosinophils % 10.2 H Basophils % 0.4 Nucleated Red Blood Cells % 0.7 H Immature Granulocytes # 0.050 H Neutrophils # 5.0 Lymphocytes # 0.8 Monocytes # 0.8 Eosinophils # 0.8 H Basophils # 0.0 Nucleated Red Blood Cells # 0.1 H Sodium Level 138 Potassium Level 4.0 Chloride Level 102 Carbon Dioxide Level 30 Anion Gap 6 Blood Urea Nitrogen 50 H Creatinine 1.34 H Est Glomerular Filtrat Rate mL/min Glucose Level 132 Calcium Level 8.3 L Bedside Glucose 134 166 Medications Medication Current Medications Epoetin Michael-epbx (Retacrit (Esrd)) 4,000 unit MoWeFr@1700 SC Last administered on 04/13/19at 17:49; Admin Dose 4,000 UNIT; Start 02/28/19 at 17:00 Olanzapine (Zyprexa) 2.5 mg DAILY GTB Last administered on 04/14/19at 08:50; Admin Dose 2.5 MG; Start 03/01/19 at 09:00 Lansoprazole (Prevacid) 30 mg BID@0600,1800 GTB Last administered on 04/14/19at 17:10; Admin Dose 30 MG; Start 02/28/19 at 18:00 Albuterol/ Ipratropium (Duoneb) 3 ml Q2H RESP THERAPY PRN HHN SHORTNESS OF BREATH; Start 03/12/19 at 10:00 Miscellaneous Information 1 ea NOTE XX ; Start 03/13/19 at 16:30 Glucose (Glutose) 15 gm Q15M PRN PO DECREASED GLUCOSE; Start 03/13/19 at 16:30 Glucose (Glutose) 22.5 gm Q15M PRN PO DECREASED GLUCOSE; Start 03/13/19 at 16:30 Dextrose (D50w Syringe) 25 ml Q15M PRN IV DECREASED GLUCOSE; Start 03/13/19 at 16:30 Dextrose (D50w Syringe) 50 ml Q15M PRN IV DECREASED GLUCOSE; Start 03/13/19 at 16:30 Glucagon (Glucagen) 1 mg Q15M PRN IM DECREASED GLUCOSE; Start 03/13/19 at 16:30 Glucose (Glutose) 15 gm Q15M PRN BUCCAL DECREASED GLUCOSE; Start 03/13/19 at 16:30 Lorazepam (Ativan) 0.5 mg QID PRN GTB ANXIETY Last administered on 04/14/19 13: 22; Admin Dose 0.5 MG; Start 03/23/19 at 20:00 Acetaminophen (Tylenol Liquid) 650 mg Q4H PRN GTB MILD PAIN(1-3)OR ELEVATED TEMP Last administered on 04/14/19 21:00; Admin Dose 650 MG; Start 03/23/19 at 20:00 Amlodipine Besylate (Norvasc) 5 mg BID GTB Last administered on 04/14/19 21:02; Admin Dose 5 MG; Start 03/26/19 at 21:00 Ascorbic Acid (Vitamin C) 500 mg DAILY GTB Last administered on 04/14/19 08:49; Admin Dose 500 MG; Start 03/27/19 at 09:00 Docusate Sodium (Colace Liquid Cup) 100 mg BID GTB Last administered on 04/14/19 21:00; Admin Dose 100 MG; Start 03/26/19 at 21:00 Folic Acid (Folic Acid) 1 mg DAILY GTB Last administered on 04/14/19 08:49; Admin Dose 1 MG; Start 03/27/19 at 09:00 Linagliptin (Tradjenta) 5 mg DAILY PO Last administered on 04/14/19 08:52; Admin Dose 5 MG; Start 03/27/19 at 09:00 Metoprolol Tartrate (Lopressor) 50 mg BID GTB Last administered on 04/14/19 2 1:01; Admin Dose 50 MG; Start 03/26/19 at 21:00 Atorvastatin Calcium (Lipitor) 40 mg HS GTB Last administered on 04/14/19 21:01; Admin Dose 40 MG; Start 03/26/19 at 21:00 Diagnostic Test (Pha) (Accu-Chek) 1 ea Q12 XX Last administered on 04/14/19 21:02; Admin Dose 1 EA; Start 03/28/19 at 20:00 Morphine Sulfate (morphine) 2 mg Q6H PRN IV SEVERE PAIN LEVEL 7-10 Last administered on 04/13/19at 00:19; Admin Dose 2 MG; Start 04/05/19 at 16:30 Caspofungin 50 mg/ Sodium Chloride 250 ml @ 250 mls/hr Q24H IVPB Last administered on 04/14/19at 17:10; Admin Dose 250 MLS/HR; Start 04/08/19 at 17:00 CHRISS WELCH MD Apr 14, 2019 21:36
[2019-04-14] MEDS ORDERED: DEXTROSE 5%-0.45% NACL 1,000 ML IV SCH (22:30)
[2019-04-15] VITALS (17 sets, daily range): BP systolic 110–161; BP diastolic 55–78; PULSE 80–100; RESP 18–20
[2019-04-15] MEDS: LANSOPRAZOLE 30 MG CAP GTB SCH ×2 (06:00→17:07)
[2019-04-15] MEDS: AMLODIPINE 5 MG TAB GTB SCH ×2 (08:26→21:01)
[2019-04-15] MEDS: FOLIC ACID 1 MG TAB GTB SCH (08:26)
[2019-04-15] MEDS: DOCUSATE SODIUM 10 MG/ML (10ML CUP) GTB SCH ×2 (08:26→21:01)
[2019-04-15] MEDS: METOPROLOL 50 MG TAB GTB SCH ×2 (08:26→21:02)
[2019-04-15] MEDS: ASCORBIC ACID 500 MG TAB GTB SCH (08:26)
[2019-04-15] MEDS: LINAGLIPTIN 5 MG TABLET PO SCH (08:27)
[2019-04-15] MEDS: ACCU-CHEK XX SCH ×2 (08:27→21:52)
[2019-04-15] MEDS: OLANZAPINE 2.5 MG TAB GTB SCH (08:27)
--- NOTE | 2019-04-15 09:25 | CONS ---
Assessment/Plan Assessment/Plan Hospital Course (Demo Recall) 1. End-stage renal disease on hemodialysis. 2. Anemia of chronic disease 3. Urinary tract infection, now has yeast in urine. 4. Hypertension, controlled. 5. Dementia. 6. Diabetes mellitus type II. 7. Diastolic heart failure. 8. Moderate protein energy malnutrition with cachexia. 9. Osteoarthritis. 10. GT status 11. Had fever 3 days ago Assessment/Plan (Daily) - cw HD MWF, hd today - xray left knee showed: Surgical changes of ORIF of distal femur fracture. Inferior migration of the intramedullary inocencia is observed with increased lucency surrounding the femoral component. The lower most cerclage wires are also beyond the bony margins of the distal femur. Constellation of imaging findings favor sequelae of hardware loosening. Robust periostitis is seen within the immediate surrounding soft tissues and may reflect healing. However, infection/osteo myelitis is also concerning. Correlate with appropriate clinical data and clinical features. - G tube replacement -negative blood cultures from permacath, -Continue with Epogen 4000 -iv abx per ID Consultation Date/Type/Reason Admit Date/Time Feb 19, 2019 at 01:01 Initial Consult Date 02/19/2019 Type of Consult nephrology Requesting Provider: JOSE RAUL ANDREWS MD Date/Time of Note DATE: 04/15/19 TIME: 09:23 24 HR Interval Summary Constitutional: disoriented Exam/Review of Systems Exam Vitals Vital Signs Date Temp Pulse Resp B/P (MAP) Pulse Ox O2 O2 Flow FiO2 Time Delivery Rate 04/15/19 98.1 18 133/63 100 Room Air 07:40 (86) 04/15/19 97 02:44 04/12/19 21 08:26 Intake and Output 04/14/19 04/14/19 04/15/19 1515:00 23:00 07:00 IntakeIntake Total 500 ml 240 ml BalanceBalance 500 ml 240 ml Exam left chest Perm cath Constitutional: alert, frail Head: normocephalic Neck: supple Respiratory: diminished breath sounds Cardiovascular: regular rate and rhythm Gastrointestinal: soft Results Result Diagram: 04/14/19 0851 04/14/19 0851 Results 24hrs Laboratory Tests Test 04/14/19 21:00 Bedside Glucose 166 Medications Medication Current Medications Epoetin Micahel-epbx (Retacrit (Esrd)) 4,000 unit MoWeFr@1700 SC Last administered on 04/13/19at 17:49; Admin Dose 4,000 UNIT; Start 02/28/19 at 17:00 Olanzapine (Zyprexa) 2.5 mg DAILY GTB Last administered on 04/14/19at 08:50; Admin Dose 2.5 MG; Start 03/01/19 at 09:00 Lansoprazole (Prevacid) 30 mg BID@0600,1800 GTB Last administered on 04/14/19at 17:10; Admin Dose 30 MG; Start 02/28/19 at 18:00 Albuterol/ Ipratropium (Duoneb) 3 ml Q2H RESP THERAPY PRN HHN SHORTNESS OF BREATH; Start 03/12/19 at 10:00 Miscellaneous Information 1 ea NOTE XX ; Start 03/13/19 at 16:30 Glucose (Glutose) 15 gm Q15M PRN PO DECREASED GLUCOSE; Start 03/13/19 at 16:30 Glucose (Glutose) 22.5 gm Q15M PRN PO DECREASED GLUCOSE; Start 03/13/19 at 16:30 Dextrose (D50w Syringe) 25 ml Q15M PRN IV DECREASED GLUCOSE; Start 03/13/19 at 16:30 Dextrose (D50w Syringe) 50 ml Q15M PRN IV DECREASED GLUCOSE; Start 03/13/19 at 16:30 Glucagon (Glucagen) 1 mg Q15M PRN IM DECREASED GLUCOSE; Start 03/13/19 at 16:30 Glucose (Glutose) 15 gm Q15M PRN BUCCAL DECREASED GLUCOSE; Start 03/13/19 at 16:30 Lorazepam (Ativan) 0.5 mg QID PRN GTB ANXIETY Last administered on 04/14/19at 13:22; Admin Dose 0.5 MG; Start 03/23/19 at 20:00 Acetaminophen (Tylenol Liquid) 650 mg Q4H PRN GTB MILD PAIN(1-3)OR ELEVATED TEMP Last administered on 04/14/19 21:00; Admin Dose 650 MG; Start 03/23/19 at 20:00 Amlodipine Besylate (Norvasc) 5 mg BID GTB Last administered on 04/14/19at 21:02; Admin Dose 5 MG; Start 03/26/19 at 21:00 Ascorbic Acid (Vitamin C) 500 mg DAILY GTB Last administered on 04/14/19 08:49; Admin Dose 500 MG; Start 03/27/19 at 09:00 Docusate Sodium (Colace Liquid Cup) 100 mg BID GTB Last administered on 04/14/19 21:00; Admin Dose 100 MG; Start 03/26/19 at 21:00 Folic Acid (Folic Acid) 1 mg DAILY GTB Last administered on 04/14/19 08:49; Ad min Dose 1 MG; Start 03/27/19 at 09:00 Linagliptin (Tradjenta) 5 mg DAILY PO Last administered on 04/14/19 08:52; Admin Dose 5 MG; Start 03/27/19 at 09:00 Metoprolol Tartrate (Lopressor) 50 mg BID GTB Last administered on 04/14/19 21:01; Admin Dose 50 MG; Start 03/26/19 at 21:00 Atorvastatin Calcium (Lipitor) 40 mg HS GTB Last administered on 04/14/19 21:01; Admin Dose 40 MG; Start 03/26/19 at 21:00 Diagnostic Test (Pha) (Accu-Chek) 1 ea Q12 XX Last administered on 04/14/19 21:02; Admin Dose 1 EA; Start 03/28/19 at 20:00 Morphine Sulfate (morphine) 2 mg Q6H PRN IV SEVERE PAIN LEVEL 7-10 Last administered on 04/13/19 00:19; Admin Dose 2 MG; Start 04/05/19 at 16:30 Caspofungin 50 mg/ Sodium Chloride 250 ml @ 250 mls/hr Q24H IVPB Last administered on 04/14/19 17:10; Admin Dose 250 MLS/HR; Start 04/08/19 at 17:00 Dextrose/Sodium Chloride 1,000 ml @ 35 mls/hr Q24H IV Last administered on 04/14/19 22:26; Admin Dose 35 MLS/HR; Start 04/14/19 at 22:30 FLAVIO CLAYTON Apr 15, 2019 09:25
--- NOTE | 2019-04-15 17:34 | CONS ---
Assessment/Plan Assessment/Plan Assessment/Plan (Daily) Assessment/Plan Assessment/Plan (Daily) Assessment/Plan Assessment/Plan (Daily) Assessment/Plan Assessment/Plan (Daily) 1. End-stage renal disease on hemodialysis. 2. Anemia of chronic disease 3. Urinary tract infection, now has yeast in urine. 4. Hypertension, controlled. 5. Dementia. 6. Diabetes mellitus type II. 7. Diastolic heart failure. 8. Moderate protein energy malnutrition with cachexia. 9. Osteoarthritis. 10. Malfunctioning G-tube Plan Continue present care We will change the G-tube in a.m. 20 f G tube successfully changed Consultation Date/Type/Reason Admit Date/Time Feb 19, 2019 at 01:01 Initial Consult Date 02/23/19 Requesting Provider: JOSE RAUL ANDREWS MD Date/Time of Note DATE: 04/15/19 TIME: 17:33 24 HR Interval Summary Constitutional: improved Exam/Review of Systems Exam Vitals Vital Signs Date Temp Pulse Resp B/P (MAP) Pulse Ox O2 O2 Flow FiO2 Time Delivery Rate 04/15/19 93 17:15 04/15/19 132/55 100 Room Air 15:15 (80) 04/15/19 98.8 18 14:06 04/12/19 21 08:26 Intake and Output 04/14/19 04/14/19 04/15/19 1515:00 23:00 07:00 IntakeIntake Total 500 ml 240 ml BalanceBalance 500 ml 240 ml Constitutional: alert, oriented, well developed Psych: no complaints, nl mood/affect Head: normocephalic, atraumatic Eyes: nl conjunctiva, EOMI, nl lids, nl sclera, PERRL ENMT: nl external ears & nose, nl lips & teeth, nl nasal mucosa & septum Neck: supple, non-tender Respiratory: clear to auscultation, normal air movement Cardiovascular: regular rate and rhythm, nl pulses Gastrointestinal: soft, nl liver, spleen, non-tender Musculoskeletal: nl extremities to inspection, nl gait and stance Extremities: normal pulses 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: CAFE ASSOCIATE II-XII intact, nl mental status, nl speech, nl strength Skin: nl turgor; No rash or lesions Lymph: nl lymph nodes Results Result Diagram: 04/14/19 0851 04/14/19 0851 Results 24hrs Laboratory Tests Test 04/14/19 21:00 Bedside Glucose 166 Medications Medication Current Medications Epoetin Michael-epbx (Retacrit (Esrd)) 4,000 unit MoWeFr@1700 SC Last administered on 04/13/19 17:49; Admin Dose 4,000 UNIT; Start 02/28/19 at 17:00 Olanzapine (Zyprexa) 2.5 mg DAILY GTB Last administered on 04/14/19 08:50; Admin Dose 2.5 MG; Start 03/01/19 at 09:00 Lansoprazole (Prevacid) 30 mg BID@0600,1800 GTB Last administered on 04/14/19 17:10; Admin Dose 30 MG; Start 02/28/19 at 18:00 Albuterol/ Ipratropium (Duoneb) 3 ml Q2H RESP THERAPY PRN HHN SHORTNESS OF BREATH; Start 03/12/19 at 10:00 Miscellaneous Information 1 ea NOTE XX ; Start 03/13/19 at 16:30 Glucose (Glutose) 15 gm Q15M PRN PO DECREASED GLUCOSE; Start 03/13/19 at 16:30 Glucose (Glutose) 22.5 gm Q15M PRN PO DECREASED GLUCOSE; Start 03/13/19 at 16:30 Dextrose (D50w Syringe) 25 ml Q15M PRN IV DECREASED GLUCOSE; Start 03/13/19 at 1 6:30 Dextrose (D50w Syringe) 50 ml Q15M PRN IV DECREASED GLUCOSE; Start 03/13/19 at 16:30 Glucagon (Glucagen) 1 mg Q15M PRN IM DECREASED GLUCOSE; Start 03/13/19 at 16:30 Glucose (Glutose) 15 gm Q15M PRN BUCCAL DECREASED GLUCOSE; Start 03/13/19 at 16:30 Lorazepam (Ativan) 0.5 mg QID PRN GTB ANXIETY Last administered on 04/14/19 13:22; Admin Dose 0.5 MG; Start 03/23/19 at 20:00 Acetaminophen (Tylenol Liquid) 650 mg Q4H PRN GTB MILD PAIN(1-3)OR ELEVATED TEMP Last administered on 04/14/19 21:00; Admin Dose 650 MG; Start 03/23/19 at 20:00 Amlodipine Besylate (Norvasc) 5 mg BID GTB Last administered on 6/6/19at 21:02; Admin Dose 5 MG; Start 03/26/19 at 21:00 Ascorbic Acid (Vitamin C) 500 mg DAILY GTB Last administered on 04/14/19 08:49; Admin Dose 500 MG; Start 03/27/19 at 09:00 Docusate Sodium (Colace Liquid Cup) 100 mg BID GTB Last administered on 04/14/19 21:00; Admin Dose 100 MG; Start 03/26/19 at 21:00 Folic Acid (Folic Acid) 1 mg DAILY GTB Last administered on 04/14/19 08:49; Adm in Dose 1 MG; Start 03/27/19 at 09:00 Linagliptin (Tradjenta) 5 mg DAILY PO Last administered on 04/14/19 08:52; Admin Dose 5 MG; Start 03/27/19 at 09:00 Metoprolol Tartrate (Lopressor) 50 mg BID GTB Last administered on 04/14/19 21:01; Admin Dose 50 MG; Start 03/26/19 at 21:00 Atorvastatin Calcium (Lipitor) 40 mg HS GTB Last administered on 04/14/19 21:01; Admin Dose 40 MG; Start 03/26/19 at 21:00 Diagnostic Test (Pha) (Accu-Chek) 1 ea Q12 XX Last administered on 04/14/19 21:02; Admin Dose 1 EA; Start 03/28/19 at 20:00 Morphine Sulfate (morphine) 2 mg Q6H PRN IV SEVERE PAIN LEVEL 7-10 Last administered on 04/13/19 00:19; Admin Dose 2 MG; Start 04/05/19 at 16:30 Caspofungin 50 mg/ Sodium Chloride 250 ml @ 250 mls/hr Q24H IVPB Last administered on 04/14/19 17:10; Admin Dose 250 MLS/HR; Start 04/08/19 at 17:00 CHRISS WELCH MD Apr 15, 2019 17:34
--- NOTE | 2019-04-15 17:38 | PN ---
DATE: 04/15/2019 SUBJECTIVE: Patient had her G-tube changed today as it was malfunctioning. Case discussed with case mgr regarding discharge planning, which is in ____. PHYSICAL EXAMINATION: VITAL SIGNS: Temperature 98.8, pulse 86, respirations 18, blood pressure 142/71, saturation 100%. GENERAL: No acute distress. HEENT: Normocephalic, atraumatic. Pale. CARDIOVASCULAR: S1 and S2, regular rate. LUNGS: Clear. ABDOMEN: Soft. G-tube in place. EXTREMITIES: No clubbing, cyanosis or edema. The patient with 1:1 sitter as she is a high risk of pulling G-tube or Perm-A-Cath and has history of falls. Definitely, she will need a sitter. Awaiting challenging transfer. LABORATORY DATA: No new labs today. MEDICATIONS: Reviewed. They include: 1. Caspofungin. 2. Morphine sulfate p.r.n. 3. Vitamin C 500 mg daily. 4. Folic acid 1 mg daily. 5. Tradjenta 5 mg daily. 6. Norvasc 5 mg b.i.d. 7. Colace 100 b.i.d. 8. Lopressor 50 b.i.d. 9. Lipitor 40 mg at bedtime. 10. Ativan p.r.n. 11. Tylenol p.r.n. 12. Hypoglycemia protocol. 11. DuoNebs p.r.n. 12. Zyprexa 2.5 daily. 13. Prevacid 30 mg b.i.d. 14. Epogen as directed. ASSESSMENT AND PLAN: This is an 83-year-old [place] female with end-stage renal disease, vascular d ementia, hypertension, diabetes mellitus, anemia, status post treatment for bacteremia, pneumonia and UTI. 1. Respiratory. Continue O2 support as needed, breathing comfortably. Continue aspiration precauti ons. 2. Cardiovascular. Vitals are stable off blood thinners due to need for transfusion. No evidence o f DVT on lower extremity. 3. Left thigh swelling. No evidence of fracture, questionable loosening ____, but the patient is no nambulatory. No significant pain. Continue supportive care. Not a great candidate for any surgical intervention. 4. Diabetes mellitus. Continue Tradjenta and Lantus. Glucose levels in the 100. 5. UTI, organism Dominique glabrata. Remains on Cancidas. Likely able to discontinue soon. 6. Patient is prone for more infection as she still has urine output despite being on dialysis. 7. End-stage renal disease. Dialysis per nephrology. Outpatient dialysis sessions also arrange for discharge planning. 8. Psychiatric disorder. Continue Zyprexa. Mood appears to be variable today, slightly more anxiou s today. 9. Malnutrition and dysphagia. Continue nutritional support. Continue G-tube feeding. G-tube agai n was changed today. 10. risk and insurance manager to assist with placement. We will follow. Dictated By: DYLON HULL/MADAN Conf#: [id number] DID#: [id number] CC: JOSE RAUL ANDREWS;*Deanna*
--- NOTE | 2019-04-15 18:21 | CONS ---
Assessment/Plan Assessment/Plan Hospital Course (Demo Recall) 1230 No acute changes, awake, looks comfortable Blood cx neg, urine culture +yeast Antimicrobials: Cancidas 04/08 Indwelling: Left subclavian permacath, PEG Physical examination: This is a chronically ill-appearing wasted elderly woman who is in no distress. Head atraumatic normocephalic. Neck is supple. Chest rise symmetrical patient is mildly tachypneic with expiratory wheezes. Heart: S1-S2, tachycardic. Abdomen soft bowel sounds present. Extremities without cyanosis edema. Assessment: 1. Systemic inflammatory response syndrome with low-grade fevers, rule out aspiration versus recurrent UTI 2. Status post recurrent UTI and bacteremia 4. End-stage renal disease, hemodialysis dependent 5. Anemia 6. 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 Plan: Clinically unchanged, stable, continue aspiration measures Consultation Date/Type/Reason Admit Date/Time Feb 19, 2019 at 01:01 Initial Consult Date Type of Consult id Requesting Provider: JOSE RAUL ANDREWS MD Date/Time of Note DATE: 04/15/19 TIME: 18:21 Exam/Review of Systems Exam Vitals Vital Signs Date Temp Pulse Resp B/P (MAP) Pulse Ox O2 O2 Flow FiO2 Time Delivery Rate 04/15/19 98 17:45 04/15/19 132/55 100 Room Air 15:15 (80) 04/15/19 98.8 18 14:06 04/12/19 21 08:26 Intake and Output 04/14/19 04/14/19 04/15/19 1515:00 23:00 07:00 IntakeIntake Total 500 ml 240 ml BalanceBalance 500 ml 240 ml Results Result Diagram: 04/14/19 0851 04/14/19 0851 Results 24hrs Laboratory Tests Test 04/14/19 21:00 Bedside Glucose 166 Medications Medication Current Medications Epoetin Michael-epbx (Retacrit (Esrd)) 4,000 unit MoWeFr@1700 SC Last administered on 04/13/19at 17:49; Admin Dose 4,000 UNIT; Start 02/28/19 at 17:00 Olanzapine (Zyprexa) 2.5 mg DAILY GTB Last administered on 04/14/19at 08:50; Admin Dose 2.5 MG; Start 03/01/19 at 09:00 Lansoprazole (Prevacid) 30 mg BID@0600,1800 GTB Last administered on 04/14/19at 17:10; Admin Dose 30 MG; Start 02/28/19 at 18:00 Albuterol/ Ipratropium (Duoneb) 3 ml Q2H RESP THERAPY PRN HHN SHORTNESS OF BREATH; Start 03/12/19 at 10:00 Miscellaneous Information 1 ea NOTE XX ; Start 03/13/19 at 16:30 Glucose (Glutose) 15 gm Q15M PRN PO DECREASED GLUCOSE; Start 03/13/19 at 16:30 Glucose (Glutose) 22.5 gm Q15M PRN PO DECREASED GLUCOSE; Start 03/13/19 at 16:30 Dextrose (D50w Syringe) 25 ml Q15M PRN IV DECREASED GLUCOSE; Start 03/13/19 at 16:30 Dextrose (D50w Syringe) 50 ml Q15M PRN IV DECREASED GLUCOSE; Start 03/13/19 at 16:30 Glucagon (Glucagen) 1 mg Q15M PRN IM DECREASED GLUCOSE; Start 03/13/19 at 16:30 Glucose (Glutose) 15 gm Q15M PRN BUCCAL DECREASED GLUCOSE; Start 03/13/19 at 16:30 Lorazepam (Ativan) 0.5 mg QID PRN GTB ANXIETY Last administered on 04/14/19at 13:22; Admin Dose 0.5 MG; Start 03/23/19 at 20:00 Acetaminophen (Tylenol Liquid) 650 mg Q4H PRN GTB MILD PAIN(1-3)OR ELEVATED TEMP Last administered on 04/14/19at 21:00; Admin Dose 650 MG; Start 03/23/19 at 20:00 Amlodipine Besylate (Norvasc) 5 mg BID GTB Last administered on 04/14/19 21:02; Admin Dose 5 MG; Start 03/26/19 at 21:00 Ascorbic Acid (Vitamin C) 500 mg DAILY GTB Last administered on 04/14/19at 08:49; Admin Dose 500 MG; Start 03/27/19 at 09:00 Docusate Sodium (Colace Liquid Cup) 100 mg BID GTB Last administered on 04/14/19 21:00; Admin Dose 100 MG; Start 03/26/19 at 21:00 Folic Acid (Folic Acid) 1 mg DAILY GTB Last administered on 04/14/19 08:49; Admin Dose 1 MG; Start 03/27/19 at 09:00 Linagliptin (Tradjenta) 5 mg DAILY PO Last administered on 04/14/19 08:52; Admin Dose 5 MG; Start 03/27/19 at 09:00 Metoprolol Tartrate (Lopressor) 50 mg BID GTB Last administered on 04/14/19 21:01; Admin Dose 50 MG; Start 03/26/19 at 21:00 Atorvastatin Calcium (Lipitor) 40 mg HS GTB Last administered on 04/14/19 21:01; Admin Dose 40 MG; Start 03/26/19 at 21:00 Diagnostic Test (Pha) (Accu-Chek) 1 ea Q12 XX Last administered on 04/14/19 21:02; Admin Dose 1 EA; Start 03/28/19 at 20:00 Morphine Sulfate (morphine) 2 mg Q6H PRN IV SEVERE PAIN LEVEL 7-10 Last administered on 04/13/19 00:19; Admin Dose 2 MG; Start 04/05/19 at 16:30 Caspofungin 50 mg/ Sodium Chloride 250 ml @ 250 mls/hr Q24H IVPB Last administered on 04/14/19 17:10; Admin Dose 250 MLS/HR; Start 04/08/19 at 17:00 PHYLICIA HOLCOMB NP Apr 15, 2019 18:21
[2019-04-15] MEDS: EPOETIN ALFA-EPBX (ESRD) 4,000 UNIT/ML VIAL SC SCH (18:25)
[2019-04-15] MEDS: CASPOFUNGIN 50 MG in SOD CHLORIDE 0.9% 250 ML IVPB SCH ×2 (18:25→22:16)
[2019-04-15] MEDS: LORAZEPAM 0.5 MG TAB GTB PRN (18:45)
[2019-04-15] MEDS: ATORVASTATIN 40 MG TAB GTB SCH (21:01)
[2019-04-15] MEDS: morphine 2 MG INJ IV PRN (21:02)
[2019-04-16 02:11] VITALS: BP 152/66; PULSE 88; RESP 18
[2019-04-16] MEDS: LANSOPRAZOLE 30 MG CAP GTB SCH ×2 (06:02→17:59)
[2019-04-16 08:00] VITALS: BP 144/67; PULSE 80; RESP 16
[2019-04-16] MEDS: ACCU-CHEK XX SCH ×2 (09:42→21:00)
[2019-04-16] MEDS: FOLIC ACID 1 MG TAB GTB SCH (09:49)
[2019-04-16] MEDS: OLANZAPINE 2.5 MG TAB GTB SCH (09:49)
[2019-04-16] MEDS: LINAGLIPTIN 5 MG TABLET PO SCH (09:49)
[2019-04-16] MEDS: DOCUSATE SODIUM 10 MG/ML (10ML CUP) GTB SCH ×2 (09:49→21:08)
[2019-04-16] MEDS: AMLODIPINE 5 MG TAB GTB SCH ×2 (09:50→21:08)
[2019-04-16] MEDS: ASCORBIC ACID 500 MG TAB GTB SCH (09:50)
[2019-04-16] MEDS: METOPROLOL 50 MG TAB GTB SCH ×2 (09:51→21:09)
--- NOTE | 2019-04-16 10:12 | CONS ---
Assessment/Plan Assessment/Plan Hospital Course (Demo Recall) 1. End-stage renal disease on hemodialysis. 2. Anemia of chronic disease 3. Urinary tract infection, now has yeast in urine. 4. Hypertension, controlled. 5. Dementia. 6. Diabetes mellitus type II. 7. Diastolic heart failure. 8. Moderate protein energy malnutrition with cachexia. 9. Osteoarthritis. 10. GT status 11. Had fever 3 days ago Assessment/Plan (Daily) - cw HD MWF - xray left knee showed: Surgical changes of ORIF of distal femur fracture. Inf erior migration of the intramedullary inocencia is observed with increased lucency surrounding the femoral component. The lower most cerclage wires are also beyond the bony margins of the distal femur. Constellation of imaging findings favor sequelae of hardware loosening. Robust periostitis is seen within the immediate surrounding soft tissues and may reflect healing. However, infection/osteomyelitis is also concerning. Correlate with appropriate clinical data and clinical features. - G tube replacement -negative blood cultures from permacath, -Continue with Epogen 4000 -iv abx per ID Consultation Date/Type/Reason Admit Date/Time Feb 19, 2019 at 01:01 Initial Consult Date 02/19/2019 Type of Consult nephrology Requesting Provider: JOSE RAUL ANDREWS MD Date/Time of Note DATE: 04/16/19 TIME: 10:11 Exam/Review of Systems Exam Vitals Vital Signs Date Temp Pulse Resp B/P (MAP) Pulse Ox O2 O2 Flow FiO2 Time Delivery Rate 04/16/19 98.1 80 16 144/67 95 08:00 (92) 04/15/19 Room Air 15:15 04/12/19 21 08:26 Intake and Output 04/15/19 04/15/19 04/16/19 1515:00 23:00 07:00 IntakeIntake Total 750 ml OutputOutput Total 500 ml BalanceBalance -500 ml 750 ml Exam sleeping Head: normocephalic Neck: supple Respiratory: diminished breath sounds Cardiovascular: regular rate and rhythm Gastrointestinal: soft, other (GT) Results Result Diagram: 04/14/19 0851 04/14/19 0851 Results 24hrs Laboratory Tests Test 04/15/19 21:51 04/16/19 08:09 Bedside Glucose 145 150 Medications Medication Current Medications Epoetin Michael-epbx (Retacrit (Esrd)) 4,000 unit MoWeFr@1700 [place] Last administered on 04/15/19 18:25; Admin Dose 4,000 UNIT; Start 02/28/19 at 17:00 Olanzapine (Zyprexa) 2.5 mg DAILY GTB Last administered on 04/16/19 09:49; Admin Dose 2.5 MG; Start 03/01/19 at 09:00 Lansoprazole (Prevacid) 30 mg BID@0600,1800 GTB Last administered on 04/16/19 06:02; Admin Dose 30 MG; Start 02/28/19 at 18:00 Albuterol/ Ipratropium (Duoneb) 3 ml Q2H RESP THERAPY PRN HHN SHORTNESS OF BREATH; Start 03/12/19 at 10:00 Miscellaneous Information 1 ea NOTE XX ; Start 03/13/19 at 16:30 Glucose (Glutose) 15 gm Q15M PRN PO DECREASED GLUCOSE; Start 03/13/19 at 16:30 Glucose (Glutose) 22.5 gm Q15M PRN PO DECREASED GLUCOSE; Start 03/13/19 at 16:30 Dextrose (D50w Syringe) 25 ml Q15M PRN IV DECREASED GLUCOSE; Start 03/13/19 at 16:30 Dextrose (D50w Syringe) 50 ml Q15M PRN IV DECREASED GLUCOSE; Start 03/13/19 at 16:30 Glucagon (Glucagen) 1 mg Q15M PRN IM DECREASED GLUCOSE; Start 03/13/19 at 16:30 Glucose (Glutose) 15 gm Q15M PRN BUCCAL DECREASED GLUCOSE; Start 03/13/19 at 16:30 Lorazepam (Ativan) 0.5 mg QID PRN GTB ANXIETY Last administered on 04/15/19at 18:45; Admin Dose 0.5 MG; Start 03/23/19 at 20:00 Acetaminophen (Tylenol Liquid) 650 mg Q4H PRN GTB MILD PAIN(1-3)OR ELEVATED TEMP Last administered on 04/14/19 21:00; Admin Dose 650 MG; Start 03/23/19 at 20:00 Amlodipine Besylate (Norvasc) 5 mg BID GTB Last administered on 04/16/19 09:50; Admin Dose 5 MG; Start 03/26/19 at 21:00 Ascorbic Acid (Vitamin C) 500 mg DAILY GTB Last administered on 04/16/19 09:50; Admin Dose 500 MG; Start 03/27/19 at 09:00 Docusate Sodium (Colace Liquid Cup) 100 mg BID GTB Last administered on 04/16/19 09:49; Admin Dose 100 MG; Start 03/26/19 at 21:00 Folic Acid (Folic Acid) 1 mg DAILY GTB Last administered on 04/16/19 09:49; Admin Dose 1 MG; Start 03/27/19 at 09:00 Linagliptin (Tradjenta) 5 mg DAILY PO Last administered on 04/16/19 09:49; Admin Dose 5 MG; Start 03/27/19 at 09:00 Metoprolol Tartrate (Lopressor) 50 mg BID GTB Last administered on 04/16/19 09:51; Admin Dose 50 MG; Start 03/26/19 at 21:00 Atorvastatin Calcium (Lipitor) 40 mg HS GTB Last administered on 04/15/19 21:01; Admin Dose 40 MG; Start 03/26/19 at 21:00 Diagnostic Test (Pha) (Accu-Chek) 1 ea Q12 XX Last administered on 04/16/19 09:42; Admin Dose 1 EA; Start 03/28/19 at 20:00 Morphine Sulfate (morphine) 2 mg Q6H PRN IV SEVERE PAIN LEVEL 7-10 Last admin istered on 04/15/19 21:02; Admin Dose 2 MG; Start 04/05/19 at 16:30 Caspofungin 50 mg/ Sodium Chloride 250 ml @ 250 mls/hr Q24H IVPB Last administered on 04/15/19 22:16; Admin Dose 250 MLS/HR; Start 04/08/19 at 17:00 FLAVIO CLAYTON Apr 16, 2019 10:12
[2019-04-16 14:00] VITALS: BP 140/60; PULSE 70; RESP 17
--- NOTE | 2019-04-16 14:17 | CONS ---
Assessment/Plan Assessment/Plan Assessment/Plan (Daily) Assessment/Plan Assessment/Plan (Daily) Assessment/Plan Assessment/Plan (Daily) 1. End-stage renal disease on hemodialysis. 2. Anemia of chronic disease 3. Urinary tract infection, now has yeast in urine. 4. Hypertension, controlled. 5. Dementia. 6. Diabetes mellitus type II. 7. Diastolic heart failure. 8. Moderate protein energy malnutrition with cachexia. 9. Osteoarthritis. 10. Malfunctioning G-tube Plan Continue present care We will change the G-tube in a.m. 20 f G tube successfully changed, patient is tolerating feeding no discharge fro m the G-tube site no abdominal pain no distention Consultation Date/Type/Reason Admit Date/Time Feb 19, 2019 at 01:01 Initial Consult Date 02/23/19 Requesting Provider: JOSE RAUL ANDREWS MD Date/Time of Note DATE: 04/16/19 TIME: 14:16 24 HR Interval Summary Free Text/Dictation As per the staff patient is tolerating feeding Constitutional: improved Exam/Review of Systems Exam Vitals Vital Signs Date Temp Pulse Resp B/P (MAP) Pulse Ox O2 O2 Flow FiO2 Time Delivery Rate 04/16/19 98.1 80 16 144/67 95 08:00 (92) 04/15/19 Room Air 15:15 04/12/19 21 08:26 Intake and Output 04/15/19 04/15/19 04/16/19 1515:00 23:00 07:00 IntakeIntake Total 750 ml OutputOutput Total 500 ml BalanceBalance -500 ml 750 ml Constitutional: frail Psych: confusion ENMT: No nl external ears & nose, No nl lips & teeth, No nl nasal mucosa & septum, No mucosa pink and moist, No intubated, No tympanic membranes, No other Respiratory: clear to auscultation, normal air movement Musculoskeletal: nl extremities to inspection, nl gait and stance Results Result Diagram: 04/14/19 0851 04/14/19 0851 Results 24hrs Laboratory Tests Test 04/15/19 21:51 04/16/19 08:09 Bedside Glucose 145 150 Medications Medication Current Medications Epoetin Michael-epbx (Retacrit (Esrd)) 4,000 unit MoWeFr@1700 SC Last administered on 04/15/19at 18:25; Admin Dose 4,000 UNIT; Start 02/28/19 at 17:00 Olanzapine (Zyprexa) 2.5 mg DAILY GTB Last administered on 04/16/19at 09:49; Admin Dose 2.5 MG; Start 03/01/19 at 09:00 Lansoprazole (Prevacid) 30 mg BID@0600,1800 GTB Last administered on 04/16/19at 06:02; Admin Dose 30 MG; Start 02/28/19 at 18:00 Albuterol/ Ipratropium (Duoneb) 3 ml Q2H RESP THERAPY PRN HHN SHORTNESS OF BREATH; Start 03/12/19 at 10:00 Miscellaneous Information 1 ea NOTE XX ; Start 03/13/19 at 16:30 Glucose (Glutose) 15 gm Q15M PRN PO DECREASED GLUCOSE; Start 03/13/19 at 16:30 Glucose (Glutose) 22.5 gm Q15M PRN PO DECREASED GLUCOSE; Start 03/13/19 at 16:30 Dextrose (D50w Syringe) 25 ml Q15M PRN IV DECREASED GLUCOSE; Start 03/13/19 at 16:30 Dextrose (D50w Syringe) 50 ml Q15M PRN IV DECREASED GLUCOSE; Start 03/13/19 at 16:30 Glucagon (Glucagen) 1 mg Q15M PRN IM DECREASED GLUCOSE; Start 03/13/19 at 16:30 Glucose (Glutose) 15 gm Q15M PRN BUCCAL DECREASED GLUCOSE; Start 03/13/19 at 16:30 Lorazepam (Ativan) 0.5 mg QID PRN GTB ANXIETY Last administered on 04/15/19at 18:45; Admin Dose 0.5 MG; Start 03/23/19 at 20:00 Acetaminophen (Tylenol Liquid) 650 mg Q4H PRN GTB MILD PAIN(1-3)OR ELEVATED TEMP Last administered on 04/14/19at 21:00; Admin Dose 650 MG; Start 03/23/19 at 20:00 Amlodipine Besylate (Norvasc) 5 mg BID GTB Last administered on 04/16/19at 09:50; Admin Dose 5 MG; Start 03/26/19 at 21:00 Ascorbic Acid (Vitamin C) 500 mg DAILY GTB Last administered on 04/16/19at 09:50; Admin Dose 500 MG; Start 03/27/19 at 09:00 Docusate Sodium (Colace Liquid Cup) 100 mg BID GTB Last administered on 04/16/19 09:49; Admin Dose 100 MG; Start 03/26/19 at 21:00 Folic Acid (Folic Acid) 1 mg DAILY GTB Last administered on 04/16/19 09:49; Admin Dose 1 MG; Start 03/27/19 at 09:00 Linagliptin (Tradjenta) 5 mg DAILY PO Last administered on 04/16/19 09:49; Admin Dose 5 MG; Start 03/27/19 at 09:00 Metoprolol Tartrate (Lopressor) 50 mg BID GTB Last administered on 04/16/19 09:51; Admin Dose 50 MG; Start 03/26/19 at 21:00 Atorvastatin Calcium (Lipitor) 40 mg HS GTB Last administered on 04/15/19 21:01; Admin Dose 40 MG; Start 03/26/19 at 21:00 Diagnostic Test (Pha) (Accu-Chek) 1 ea Q12 XX Last administered on 04/16/19 09:42; Admin Dose 1 EA; Start 03/28/19 at 20:00 Morphine Sulfate (morphine) 2 mg Q6H PRN IV SEVERE PAIN LEVEL 7-10 Last administered on 04/15/19 21:02; Admin Dose 2 MG; Start 04/05/19 at 16:30 Caspofungin 50 mg/ Sodium Chloride 250 ml @ 250 mls/hr Q24H IVPB Last administered on 04/15/19 22:16; Admin Dose 250 MLS/HR; Start 04/08/19 at 17:00 Diphenhydramine HCl (Benadryl Liquid Cup) 25 mg Q6H PRN GTB ITCHING; Start 04/16/19 at 11:00 CHRISS WELCH MD Apr 16, 2019 14:17
--- NOTE | 2019-04-16 16:28 | PN ---
DATE: 04/16/2019 SUBJECTIVE: The patient seen, appears to be comfortable. Unfortunately, she scratched herself and s he does have some bleeding at the site of a Perm-A-Cath. Dressing changes will be provided. PHYSICAL EXAMINATION: VITAL SIGNS: Temperature 98.1, pulse 80, respirations 16, blood pressure 144/67, saturation 95%. GENERAL: The patient is in no acute distress, pale. CARDIOVASCULAR: S1, S2, regular rate. LUNGS: Clear. ABDOMEN: Soft. EXTREMITIES: Left thigh a bit hard status post her surgery. LABORATORY DATA: No new labs today. Last glucose of 150, 145, 166. MEDICATIONS: Reviewed. They include: 1. Benadryl p.r.n. 2. Caspofungin as directed. 3. Morphine p.r.n. 4. Accu-Chek as directed. 5. Vitamin C. 6. Folic acid. 7. Tradjenta. 8. Norvasc. 9. Colace. 10. Lopressor. 11. Lipitor. 12. Ativan. 13. Tylenol. 14. Hypoglycemia protocol. 15. Epogen. 16. Prevacid. 17. Effexor. 18. DuoNeb. ASSESSMENT AND PLAN: This is an 83-year-old [place] female with end-stage renal disease, vascular d ementia, hypertension, diabetes mellitus, anemia, status post treatment for bacteremia, pneumonia and urinary tract infection. 1. Respiratory. Stable off oxygen, breathing comfortably. 2. Cardiovascular. Off blood thinners due to need for transfusion. Blood pressure is controlled. 3. Left thigh swelling. No significant pathology on ultrasound. All x-rays with supportive care fo r now. The patient is high risk for any procedures. 4. Diabetes mellitus. Continue Tradjenta and Lantus. She has UTI, organism Dominique glabrata. Cont inue Cancidas. 5. End-stage renal disease, dialysis 3 times a week per nephrology. 6. Psychiatric disorder. Continue Zyprexa. 7. Malnutrition and dysphagia. Continue G-tube feeding at 30 mL an hour, tolerating it well. 8. support services manager is assisting with placement. Discussed case with special education case manager. Still awaiting plac ement. We will follow. Dictated By: DYLON HULL/MADAN Conf#: [id number] [facility]#: [id number]
--- NOTE | 2019-04-16 16:53 | CONS ---
Assessment/Plan Assessment/Plan Hospital Course (Demo Recall) ID PROGRESS NOTE CURRENT ABX: DAY #=> CANCIDAS 04/14/19 0851 04/14/19 0851 24H INTERVAL SUMMARY * Resting in bed, VSS, no fevers, left thigh edema * Indwelling: Left chest PermCath, PEG * 04/14/19 XR: * Surgical changes of ORIF of distal femur fracture. Inferior migration of the intramedullary inocencia is observed with increased lucency surrounding the femoral component. The lower most cerclage wires are also beyond the bony margins of the distal femur. Constellation of imaging findings favor sequelae of hardware loosening. * Robust periostitis is seen within the immediate surrounding soft tissues and may reflect healing. However, infection/osteomyelitis is also concerning. Correlate with appropriate clinical data and clinical features. * Arteriosclerosis. MICRO * 04/13/19 (-)MRSA Nares * 04/05/19 URINE CX (+) URINE CULTURE Final Organism 1 TYREE GLABRATA COLONY COUNT >100,000 CFU/ml * 04/05/19 BCX (-) * 03/12/2019: BCX (-) * 03/02/19 BCx (-) * 03/02/19 URINE CULTURE Final Organism 1 TYREE GLABRATA COLONY COUNT >100,000 CFU/ml * 02/23/19 BCX (-) * 02/21/19 BLOOD CULTURE Final Organism 1 ENTEROCOCCUS SPECIES * 02/19/19 (+)MRSA Nares * 02/18/19 BCx (-) * ```````````````````````````````````` * PRIOR ADMISSION * 12/20/18 URINE Cx (+) Glabrata URINE CULTURE Final Organism 1 TYREE GLABRATA COLONY COUNT 30,000 - 40,000 CFU/ml * 12/20/18 BCx (-) * 12/18/18 BCx (-) * 12/06/18 URINE Cx (+) Glabrata * 12/03/18 BCx (-) * 12/01/18 BCx (-) * 11/29/18 BCx (+) Glabrata * 11/24/18 BCX (+) Glabrata = fungemia PHYSICAL EXAMINATION: GENERAL: Afebrile, VSS, HEENT: AT, NC, anicteric NECK: Supple, trach CHEST: Equal chest rise bilaterally, without dyspnea on observation * scratched herself and she does have some bleeding at the site of a Perm-A-Cath HEART: Pulse RRR ABDOMEN: Soft / NT EXTREMITIES: Warm, dry SKIN: No rash, no diaphoresis ID ASSESSMENT 83 yo F w/ DEMENTIA admit with: 1. SIRS -- low grade temps, leukocytosis resolving 2. Recurrent C.GLABRATA UTIs * s/p FUNGEMIA prior admission 11/24/18 3. Hx of Aspiration Pneumonitis syndrome 4. Thigh edema == hx of ORIF w/possible loosened hardware == CONSERVATIVE TX * XR shows PVR arteriosclerosis * XR shows: Robust periostitis is seen within the immediate surrounding soft tissues and may reflect healing. However, infection/osteomyelitis is also concerning. 4. s/p Enterococcal bacteremia 02/22/19 -- repeat BCx (-) * Status post VRE bacteremia 11/24/18, status post new Pcath => RESOLVED 6. End-stage renal disease, hemodialysis dependent 7. Diabetes 8. Anemia 9. Failure to thrive - Frail cachectic w/dementia (-)MRSA Nares [Hx of prior (+)MRSA Nares] ABX ALLERGIES: KNDA INVASIVES: PIV, Left chest PermCath CURRENT ABX: DAY #=> CANCIDAS ID RECOMMENDATIONS/PLAN: 1. Continue current ABX over the weekend. . Consultation Date/Type/Reason Admit Date/Time Feb 19, 2019 at 01:01 Initial Consult Date 02/23/19 Requesting Provider: JOSE RAUL ANDREWS MD Date/Time of Note DATE: 04/16/19 TIME: 16:45 Exam/Review of Systems Exam Vitals Vital Signs Date Temp Pulse Resp B/P (MAP) Pulse Ox O2 O2 Flow FiO2 Time Delivery Rate 04/16/19 97.5 70 17 140/60 95 Room Air 14:00 (86) 04/12/19 21 08:26 Intake and Output 04/15/19 04/15/19 04/16/19 1515:00 23:00 07:00 IntakeIntake Total 750 ml OutputOutput Total 500 ml BalanceBalance -500 ml 750 ml Results Result Diagram: 04/14/19 0851 04/14/19 0851 Results 24hrs Laboratory Tests Test 04/15/19 21:51 04/16/19 08:09 Bedside Glucose 145 150 Medications Medication Current Medications Epoetin Michael-epbx (Retacrit (Esrd)) 4,000 unit MoWeFr@1700 SC Last administered on 04/15/19 18:25; Admin Dose 4,000 UNIT; Start 02/28/19 at 17:00 Olanzapine (Zyprexa) 2.5 mg DAILY GTB Last administered on 04/16/19 09:49; Admin Dose 2.5 MG; Start 03/01/19 at 09:00 Lansoprazole (Prevacid) 30 mg BID@0600,1800 GTB Last administered on 04/16/19 06:02; Admin Dose 30 MG; Start 02/28/19 at 18:00 Albuterol/ Ipratropium (Duoneb) 3 ml Q2H RESP THERAPY PRN HHN SHORTNESS OF BREATH; Start 03/12/19 at 10:00 Miscellaneous Information 1 ea NOTE XX ; Start 03/13/19 at 16:30 Glucose (Glutose) 15 gm Q15M PRN PO DECREASED GLUCOSE; Start 03/13/19 at 16:30 Glucose (Glutose) 22.5 gm Q15M PRN PO DECREASED GLUCOSE; Start 03/13/19 at 16:30 Dextrose (D50w Syringe) 25 ml Q15M PRN IV DECREASED GLUCOSE; Start 03/13/19 at 16:30 Dextrose (D50w Syringe) 50 ml Q15M PRN IV DECREASED GLUCOSE; Start 03/13/19 at 16:30 Glucagon (Glucagen) 1 mg Q15M PRN IM DECREASED GLUCOSE; Start 03/13/19 at 16:30 Glucose (Glutose) 15 gm Q15M PRN BUCCAL DECREASED GLUCOSE; Start 03/13/19 at 16:30 Lorazepam (Ativan) 0.5 mg QID PRN GTB ANXIETY Last administered on 04/15/19 18:45; Admin Dose 0.5 MG; Start 03/23/19 at 20:00 Acetaminophen (Tylenol Liquid) 650 mg Q4H PRN GTB MILD PAIN(1-3)OR ELEVATED TEMP Last administered on 04/14/19 21:00; Admin Dose 650 MG; Start 03/23/19 at 20:00 Amlodipine Besylate (Norvasc) 5 mg BID GTB Last administered on 04/16/19 09:50; Admin Dose 5 MG; Start 03/26/19 at 21:00 Ascorbic Acid (Vitamin C) 500 mg DAILY GTB Last administered on 04/16/19 09:50; Admin Dose 500 MG; Start 03/27/19 at 09:00 Docusate Sodium (Colace Liquid Cup) 100 mg BID GTB Last administered on 09:49; Admin Dose 100 MG; Start 03/26/19 at 21:00 Folic Acid (Folic Acid) 1 mg DAILY GTB Last administered on 04/16/19 09:49; Admin Dose 1 MG; Start 03/27/19 at 09:00 Linagliptin (Tradjenta) 5 mg DAILY PO Last administered on 04/16/19 09:49; Admin Dose 5 MG; Start 03/27/19 at 09:00 Metoprolol Tartrate (Lopressor) 50 mg BID GTB Last administered on 04/16/19 09:51; Admin Dose 50 MG; Start 03/26/19 at 21:00 Atorvastatin Calcium (Lipitor) 40 mg HS GTB Last administered on 04/15/19 21:01; Admin Dose 40 MG; Start 03/26/19 at 21:00 Diagnostic Test (Pha) (Accu-Chek) 1 ea Q12 XX Last administered on 04/16/19 09:42; Admin Dose 1 EA; Start 03/28/19 at 20:00 Morphine Sulfate (morphine) 2 mg Q6H PRN IV SEVERE PAIN LEVEL 7-10 Last administered on 04/15/19 21:02; Admin Dose 2 MG; Start 04/05/19 at 16:30 Caspofungin 50 mg/ Sodium Chloride 250 ml @ 250 mls/hr Q24H IVPB Last administered on 04/15/19 22:16; Admin Dose 250 MLS/HR; Start 04/08/19 at 17:00 Diphenhydramine HCl (Benadryl Liquid Cup) 25 mg Q6H PRN GTB ITCHING; Start 04/16/19 at 11:00 SEVERO GARCIA NP Apr 16, 2019 16:53
[2019-04-16] MEDS: CASPOFUNGIN 50 MG in SOD CHLORIDE 0.9% 250 ML IVPB SCH (17:59)
[2019-04-16 19:19] VITALS: BP 151/57; PULSE 82; RESP 18
[2019-04-16] MEDS: ATORVASTATIN 40 MG TAB GTB SCH (21:08)
[2019-04-16] MEDS: LORAZEPAM 0.5 MG TAB GTB PRN (21:09)
[2019-04-16] MEDS: DIPHENHYDRAMINE 2.5 MG/ML 5ML CUP GTB PRN (22:11)
[2019-04-17 01:40] VITALS: BP 140/65; PULSE 91; RESP 18
[2019-04-17] MEDS: LANSOPRAZOLE 30 MG CAP GTB SCH ×2 (05:37→17:25)
[2019-04-17] MEDS: ACCU-CHEK XX SCH ×2 (08:14→21:09)
[2019-04-17] MEDS: OLANZAPINE 2.5 MG TAB GTB SCH (08:15)
[2019-04-17] MEDS: AMLODIPINE 5 MG TAB GTB SCH ×2 (08:15→21:12)
[2019-04-17] MEDS: METOPROLOL 50 MG TAB GTB SCH ×2 (08:15→21:12)
[2019-04-17] MEDS: DOCUSATE SODIUM 10 MG/ML (10ML CUP) GTB SCH ×2 (08:15→21:12)
[2019-04-17] MEDS: ASCORBIC ACID 500 MG TAB GTB SCH (08:16)
[2019-04-17] MEDS: LINAGLIPTIN 5 MG TABLET PO SCH (08:16)
[2019-04-17] MEDS: FOLIC ACID 1 MG TAB GTB SCH (08:16)
[2019-04-17 08:29] VITALS: BP 146/66; PULSE 77; RESP 15
--- NOTE | 2019-04-17 10:08 | CONS ---
Assessment/Plan Assessment/Plan Hospital Course (Demo Recall) 1. End-stage renal disease on hemodialysis. 2. Anemia of chronic disease 3. Urinary tract infection, now has yeast in urine. 4. Hypertension, controlled. 5. Dementia. 6. Diabetes mellitus type II. 7. Diastolic heart failure. 8. Moderate protein energy malnutrition with cachexia. 9. Osteoarthritis. 10. GT status 11. Had fever 3 days ago Assessment/Plan (Daily) -GT may be source of bleeding -c/w Epogen -c/w HD -Left chest Perm cath is without shaina of bleeding Consultation Date/Type/Reason Admit Date/Time Feb 19, 2019 at 01:01 Initial Consult Date 02/19/2019 Type of Consult nephrology Requesting Provider: JOSE RAUL ANDREWS MD Date/Time of Note DATE: 04/17/19 TIME: 10:07 24 HR Interval Summary Free Text/Dictation alert Exam/Review of Systems Exam Vitals Vital Signs Date Temp Pulse Resp B/P (MAP) Pulse Ox O2 O2 Flow FiO2 Time Delivery Rate 04/17/19 98.8 77 15 146/66 98 Room Air 08:29 (92) Intake and Output 04/16/19 04/16/19 04/17/19 1515:00 23:00 07:00 IntakeIntake Total 250 ml 560 ml BalanceBalance 250 ml 560 ml Exam left chest Permcath Constitutional: alert, oriented (2) Neck: supple Respiratory: diminished breath sounds Cardiovascular: regular rate and rhythm Gastrointestinal: soft, other (G tube with small amount of bleeding) Results Result Diagram: 04/17/19 0616 04/17/19 0616 Results 24hrs Laboratory Tests Test 04/16/19 21:29 04/17/19 06:16 04/17/19 08:13 Bedside Glucose 135 158 White Blood Count 8.2 Red Blood Count 2.65 L Hemoglobin 7.0 L Hematocrit 22.1 L Mean Corpuscular Volume 83.4 Mean Corpuscular Hemoglobin 26.4 L Mean Corpuscular Hemoglobin Concent 31.7 L Red Cell Distribution Width 16.5 H Platelet Count 254 Mean Platelet Volume 11.7 H Immature Granulocytes % 0.500 H Neutrophils % 71.0 Lymphocytes % 11.5 L Monocytes % 8.8 Eosinophils % 8.0 H Basophils % 0.2 Nucleated Red Blood Cells % 0.5 H Immature Granulocytes # 0.040 H Neutrophils # 5.8 Lymphocytes # 0.9 Monocytes # 0.7 Eosinophils # 0.7 H Basophils # 0.0 Nucleated Red Blood Cells # 0.0 Sodium Level 137 Potassium Level 3.3 L Chloride Level 101 Carbon Dioxide Level 31 Anion Gap 5 Blood Urea Nitrogen 40 H Creatinine 1.53 H Est Glomerular Filtrat Rate mL/min Glucose Level 140 Calcium Level 8.4 Phosphorus Level 3.7 Magnesium Level 2.1 Medications Medication Current Medications Epoetin Michael-epbx (Retacrit (Esrd)) 4,000 unit MoWeFr@1700 SC Last administered on 04/15/19at 18:25; Admin Dose 4,000 UNIT; Start 02/28/19 at 17:00 Olanzapine (Zyprexa) 2.5 mg DAILY GTB Last administered on 04/17/19at 08:15; Admin Dose 2.5 MG; Start 03/01/19 at 09:00 Lansoprazole (Prevacid) 30 mg BID@0600,1800 GTB Last administered on 04/17/19at 05:37; Admin Dose 30 MG; Start 02/28/19 at 18:00 Albuterol/ Ipratropium (Duoneb) 3 ml Q2H RESP THERAPY PRN HHN SHORTNESS OF BREATH; Start 03/12/19 at 10:00 Miscellaneous Information 1 ea NOTE XX ; Start 03/13/19 at 16:30 Glucose (Glutose) 15 gm Q15M PRN PO DECREASED GLUCOSE; Start 03/13/19 at 16:30 Glucose (Glutose) 22.5 gm Q15M PRN PO DECREASED GLUCOSE; Start 03/13/19 at 16:30 Dextrose (D50w Syringe) 25 ml Q15M PRN IV DECREASED GLUCOSE; Start 03/13/19 at 16:30 Dextrose (D50w Syringe) 50 ml Q15M PRN IV DECREASED GLUCOSE; Start 03/13/19 at 16:30 Glucagon (Glucagen) 1 mg Q15M PRN IM DECREASED GLUCOSE; Start 03/13/19 at 16:30 Glucose (Glutose) 15 gm Q15M PRN BUCCAL DECREASED GLUCOSE; Start 03/13/19 at 16:30 Lorazepam (Ativan) 0.5 mg QID PRN GTB ANXIETY Last administered on 04/16/19at 21:09; Admin Dose 0.5 MG; Start 03/23/19 at 20:00 Acetaminophen (Tylenol Liquid) 650 mg Q4H PRN GTB MILD PAIN(1-3)OR ELEVATED TEMP Last administered on 04/14/19 21:00; Admin Dose 650 MG; Start 03/23/19 at 20:00 Amlodipine Besylate (Norvasc) 5 mg BID GTB Last administered on 04/17/19 08:15; Admin Dose 5 MG; Start 03/26/19 at 21:00 Ascorbic Acid (Vitamin C) 500 mg DAILY GTB Last administered on 04/17/19 08:16; Admin Dose 500 MG; Start 03/27/19 at 09:00 Docusate Sodium (Colace Liquid Cup) 100 mg BID GTB Last administered on 04/17/19 08:15; Admin Dose 100 MG; Start 03/26/19 at 21:00 Folic Acid (Folic Acid) 1 mg DAILY GTB Last administered on 04/17/19 08:16; Admin Dose 1 MG; Start 03/27/19 at 09:00 Linagliptin (Tradjenta) 5 mg DAILY PO Last administered on 04/17/19 08:16; Admin Dose 5 MG; Start 03/27/19 at 09:00 Metoprolol Tartrate (Lopressor) 50 mg BID GTB Last administered on 04/17/19 08:15; Admin Dose 50 MG; Start 03/26/19 at 21:00 Atorvastatin Calcium (Lipitor) 40 mg HS GTB Last administered on 04/16/19 21:08; Admin Dose 40 MG; Start 03/26/19 at 21:00 Diagnostic Test (Pha) (Accu-Chek) 1 ea Q12 XX Last administered on 04/16/19 21:00; Admin Dose 1 EA; Start 03/28/19 at 20:00 Morphine Sulfate (morphine) 2 mg Q6H PRN IV SEVERE PAIN LEVEL 7-10 Last administered on 04/15/19 21:02; Admin Dose 2 MG; Start 04/05/19 at 16:30 Caspofungin 50 mg/ Sodium Chloride 250 ml @ 250 mls/hr Q24H IVPB Last administered on 04/16/19 17:59; Admin Dose 250 MLS/HR; Start 04/08/19 at 17:00 Diphenhydramine HCl (Benadryl Liquid Cup) 25 mg Q6H PRN GTB ITCHING Last administered on 04/16/19at 22:11; Admin Dose 25 MG; Start 04/16/19 at 11:00 FLAVIO CLAYTON Apr 17, 2019 10:08
--- NOTE | 2019-04-17 10:28 | PN ---
DATE: 04/17/2019 SUBJECTIVE: The patient was seen, noted a drop in her hemoglobin. This patient had some bleeding fr om the Perm-A-Cath yesterday's as the patient was scratching it. The patient remains with a sitter. PHYSICAL EXAMINATION: VITAL SIGNS: Temperature is 98.8, pulse 77, respirations 15, blood pressure 146/56, saturation 98% o n room air. GENERAL: No acute distress, pale, less verbal today. CARDIOVASCULAR: S1, S2, regular rate. LUNGS: Clear. ABDOMEN: Soft, nontender. G-tube in place. EXTREMITIES: No clubbing, cyanosis, or edema. LABORATORY DATA: White count 8.2, hemoglobin dropped to 7, hematocrit 22, platelet counts of 54 neut rophils 71%, 12%. Chemistry: Sodium 137, potassium 3.3, chloride 101, bicarbonate 31, BUN is 40, creatinine 1.53, glucose 140. Medications include: 1. Benadryl 2. Caspofungin. 3. Morphine. 4. Accu-Cheks. 5. Vitamin C. 6. Folic acid. 7. Tradjenta. 8. Norvasc. 9. Colace. 10. Lopressor. 11. Lipitor. 12. Ativan. 13. Tylenol. 14. Hypoglycemia protocol. 15. Zyprexa. 16. Prevacid. 17. Epogen. Some of these meds are p.r.n. ASSESSMENT AND PLAN: This is an 83-year-old [place] female with end-stage renal disease, vascular d ementia, hypertension, diabetes mellitus, anemia, status post treatment for bacteremia, pneumonia and urinary tract infection. 1. Respiratory. Off oxygen, breathing comfortably. 2. Cardiovascular. Off blood thinners due to need for transfusion. 3. Anemia. Transfuse 1 unit of PRBC. Continue Epogen and iron supplements. 4. Diabetes mellitus. Continue Lantus and Tradjenta. Glucose level in the 100s. 5. Urinary tract infection, organism Dominique glabrata. Continue Cancidas. 6. End-stage renal disease, dialysis 3 times a week. 7. Psychiatric disorder. Continue Zyprexa. 8. Malnutrition. Dysphagia. Continue G-tube feeding at 30 mL an hour. 9. manager internal is assisting with placement. 10. Status post left femur surgery, noted x-ray results and chronic swelling of the leg. 11. Continue to monitor electrolytes. We will follow. Overall, long-term prognosis is guarded. Patient with poor quality of life and prol onged hospitalization now for the past 6 months. I would say that 95% of the time she was in the [facility] pital. We will follow. Dictated By: DYLON HULL/MADAN Conf#: [id number] DID#: [id number] CC: JOSE RAUL ANDREWS; DYLON WALLS MD;*EndCC*
--- NOTE | 2019-04-17 12:17 | CONS ---
Assessment/Plan Assessment/Plan Hospital Course (Demo Recall) ID PROGRESS NOTE CURRENT ABX: DAY #=> CANCIDAS 04/17/19 0616 04/17/19 0616 24H INTERVAL SUMMARY * She received PRBC Tx yesterday for drop in H/H -- still low -- Lethargic, resting in bed, VSS, no fevers, left thigh edema * Indwelling: Left chest PermCath, PEG * 04/14/19 XR: * Surgical changes of ORIF of distal femur fracture. Inferior migration of the intramedullary inocencia is observed with increased lucency surrounding the femoral component. The lower most cerclage wires are also beyond the bony margins of the distal femur. Constellation of imaging findings favor sequelae of hardware loosening. * Robust periostitis is seen within the immediate surrounding soft tissues and may reflect healing. However, infection/osteomyelitis is also concerning. Correlate with appropriate clinical data and clinical features. * Arteriosclerosis. MICRO * 04/13/19 (-)MRSA Nares * 04/05/19 URINE CX (+) URINE CULTURE Final Organism 1 TYREE GLABRATA COLONY COUNT >100,000 CFU/ml * 04/05/19 BCX (-) * 03/12/2019: BCX (-) * 03/02/19 BCx (-) * 03/02/19 URINE CULTURE Final Organism 1 TYREE GLABRATA COLONY COUNT >100,000 CFU/ml * 02/23/19 BCX (-) * 02/21/19 BLOOD CULTURE Final Organism 1 ENTEROCOCCUS SPECIES * 02/19/19 (+)MRSA Nares * 02/18/19 BCx (-) * ```````````````````````````````````` * PRIOR ADMISSION * 12/20/18 URINE Cx (+) Glabrata URINE CULTURE Final Organism 1 TYREE GLABRATA COLONY COUNT 30,000 - 40,000 CFU/ml * 12/20/18 BCx (-) * 12/18/18 BCx (-) * 12/06/18 URINE Cx (+) Glabrata * 12/03/18 BCx (-) * 12/01/18 BCx (-) * 11/29/18 BCx (+) Glabrata * 11/24/18 BCX (+) Glabrata = fungemia PHYSICAL EXAMINATION: GENERAL: Afebrile, VSS, HEENT: AT, NC, anicteric NECK: Supple, trach CHEST: Equal chest rise bilaterally, without dyspnea on observation * scratched herself and she does have some bleeding at the site of a Perm-A-Cath HEART: Pulse RRR ABDOMEN: Soft / NT EXTREMITIES: Warm, dry SKIN: No rash, no diaphoresis ID ASSESSMENT 83 yo F w/ DEMENTIA admit with: 1. SIRS -- low grade temps, leukocytosis resolving 2. Recurrent C.GLABRATA UTIs * s/p FUNGEMIA prior admission 11/24/18 3. Hx of Aspiration Pneumonitis syndrome 4. Thigh edema == hx of ORIF w/possible loosened hardware == CONSERVATIVE TX * XR shows PVR arteriosclerosis * XR shows: Robust periostitis is seen within the immediate surrounding soft tissues and may reflect healing. However, infection/osteomyelitis is also concerning. 4. s/p Enterococcal bacteremia 02/22/19 -- repeat BCx (-) * Status post VRE bacteremia 11/24/18, status post new Pcath => RESOLVED 6. End-stage renal disease, hemodialysis dependent 7. Diabetes 8. Anemia 9. Failure to thrive - Frail cachectic w/dementia (-)MRSA Nares [Hx of prior (+)MRSA Nares] ABX ALLERGIES: KNDA INVASIVES: PIV, Left chest PermCath CURRENT ABX: DAY #=> CANCIDAS ID RECOMMENDATIONS/PLAN: 1. Continue current ABX over the weekend. 2. Conservative treatment of medical issues = DNR status . Consultation Date/Type/Reason Admit Date/Time Feb 19, 2019 at 01:01 Initial Consult Date 02/23/19 Requesting Provider: JOSE RAUL ANDREWS MD Date/Time of Note DATE: 04/17/19 TIME: 12:15 Exam/Review of Systems Exam Vitals Vital Signs Date Temp Pulse Resp B/P (MAP) Pulse Ox O2 O2 Flow FiO2 Time Delivery Rate 04/17/19 98.8 77 15 146/66 98 Room Air 08:29 (92) Intake and Output 04/16/19 04/16/19 04/17/19 1515:00 23:00 07:00 IntakeIntake Total 250 ml 560 ml BalanceBalance 250 ml 560 ml Results Result Diagram: 04/17/19 0616 04/17/19 0616 Results 24hrs Laboratory Tests Test 04/16/19 21:29 04/17/19 06:16 04/17/19 08:13 Bedside Glucose 135 158 White Blood Count 8.2 Red Blood Count 2.65 L Hemoglobin 7.0 L Hematocrit 22.1 L Mean Corpuscular Volume 83.4 Mean Corpuscular Hemoglobin 26.4 L Mean Corpuscular Hemoglobin Concent 31.7 L Red Cell Distribution Width 16.5 H Platelet Count 254 Mean Platelet Volume 11.7 H Immature Granulocytes % 0.500 H Neutrophils % 71.0 Lymphocytes % 11.5 L Monocytes % 8.8 Eosinophils % 8.0 H Basophils % 0.2 Nucleated Red Blood Cells % 0.5 H Immature Granulocytes # 0.040 H Neutrophils # 5.8 Lymphocytes # 0.9 Monocytes # 0.7 Eosinophils # 0.7 H Basophils # 0.0 Nucleated Red Blood Cells # 0.0 Sodium Level 137 Potassium Level 3.3 L Chloride Level 101 Carbon Dioxide Level 31 Anion Gap 5 Blood Urea Nitrogen 40 H Creatinine 1.53 H Est Glomerular Filtrat Rate mL/min Glucose Level 140 Calcium Level 8.4 Phosphorus Level 3.7 Magnesium Level 2.1 Medications Medication Current Medications Epoetin Michael-epbx (Retacrit (Esrd)) 4,000 unit MoWeFr@1700 SC Last administered on 04/15/19at 18:25; Admin Dose 4,000 UNIT; Start 02/28/19 at 17:00 Olanzapine (Zyprexa) 2.5 mg DAILY GTB Last administered on 04/17/19at 08:15; Admin Dose 2.5 MG; Start 03/01/19 at 09:00 Lansoprazole (Prevacid) 30 mg BID@0600,1800 GTB Last administered on 04/17/19at 05:37; Admin Dose 30 MG; Start 02/28/19 at 18:00 Albuterol/ Ipratropium (Duoneb) 3 ml Q2H RESP THERAPY PRN HHN SHORTNESS OF BREATH; Start 03/12/19 at 10:00 Miscellaneous Information 1 ea NOTE XX ; Start 03/13/19 at 16:30 Glucose (Glutose) 15 gm Q15M PRN PO DECREASED GLUCOSE; Start 03/13/19 at 16:30 Glucose (Glutose) 22.5 gm Q15M PRN PO DECREASED GLUCOSE; Start 03/13/19 at 16:30 Dextrose (D50w Syringe) 25 ml Q15M PRN IV DECREASED GLUCOSE; Start 03/13/19 at 16:30 Dextrose (D50w Syringe) 50 ml Q15M PRN IV DECREASED GLUCOSE; Start 03/13/19 at 16:30 Glucagon (Glucagen) 1 mg Q15M PRN IM DECREASED GLUCOSE; Start 03/13/19 at 16:30 Glucose (Glutose) 15 gm Q15M PRN BUCCAL DECREASED GLUCOSE; Start 03/13/19 at 16:30 Lorazepam (Ativan) 0.5 mg QID PRN GTB ANXIETY Last administered on 04/16/19 21:09; Admin Dose 0.5 MG; Start 03/23/19 at 20:00 Acetaminophen (Tylenol Liquid) 650 mg Q4H PRN GTB MILD PAIN(1-3)OR ELEVATED TEMP Last administered on 04/14/19 21:00; Admin Dose 650 MG; Start 03/23/19 at 20:00 Amlodipine Besylate (Norvasc) 5 mg BID GTB Last administered on 04/17/19 08:15; Admin Dose 5 MG; Start 03/26/19 at 21:00 Ascorbic Acid (Vitamin C) 500 mg DAILY GTB Last administered on 04/17/19 08:16; Admin Dose 500 MG; Start 03/27/19 at 09:00 Docusate Sodium (Colace Liquid Cup) 100 mg BID GTB Last administered on 04/17/19 08:15; Admin Dose 100 MG; Start 03/26/19 at 21:00 Folic Acid (Folic Acid) 1 mg DAILY GTB Last administered on 04/17/19 08:16; Admin Dose 1 MG; Start 03/27/19 at 09:00 Linagliptin (Tradjenta) 5 mg DAILY PO Last administered on 04/17/19 08:16; Admin Dose 5 MG; Start 03/27/19 at 09:00 Metoprolol Tartrate (Lopressor) 50 mg BID GTB Last administered on 04/17/19 08:15; Admin Dose 50 MG; Start 03/26/19 at 21:00 Atorvastatin Calcium (Lipitor) 40 mg HS GTB Last administered on 04/16/19 21:08; Admin Dose 40 MG; Start 03/26/19 at 21:00 Diagnostic Test (Pha) (Accu-Chek) 1 ea Q12 XX Last administered on 04/16/19 21:00; Admin Dose 1 EA; Start 03/28/19 at 20:00 Morphine Sulfate (morphine) 2 mg Q6H PRN IV SEVERE PAIN LEVEL 7-10 Last administered on 04/15/19 21:02; Admin Dose 2 MG; Start 04/05/19 at 16:30 Caspofungin 50 mg/ Sodium Chloride 250 ml @ 250 mls/hr Q24H IVPB Last administered on 04/16/19 17:59; Admin Dose 250 MLS/HR; Start 04/08/19 at 17:00 Diphenhydramine HCl (Benadryl Liquid Cup) 25 mg Q6H PRN GTB ITCHING Last administered on 04/16/19 22:11; Admin Dose 25 MG; Start 04/16/19 at 11:00 SEVERO GARCIA NP Apr 17, 2019 12:17
[2019-04-17] MEDS ORDERED: MAGNESIUM CITRATE 300 ML BTL GTB ONE (12:30)
[2019-04-17] MEDS ORDERED: BISACODYL 10 MG SUPP PR ONE (12:30)
[2019-04-17] MEDS: CASPOFUNGIN 50 MG in SOD CHLORIDE 0.9% 250 ML IVPB SCH (17:25)
[2019-04-17 20:02] VITALS: BP 151/67; PULSE 85; RESP 18
[2019-04-17] MEDS: LORAZEPAM 0.5 MG TAB GTB PRN (21:10)
[2019-04-17] MEDS: ATORVASTATIN 40 MG TAB GTB SCH (21:12)
[2019-04-18] VITALS (20 sets, daily range): BP systolic 137–163; BP diastolic 54–98; PULSE 75–92; RESP 16–20
[2019-04-18] MEDS: LANSOPRAZOLE 30 MG CAP GTB SCH ×2 (06:19→17:42)
[2019-04-18] MEDS: OLANZAPINE 2.5 MG TAB GTB SCH (08:16)
[2019-04-18] MEDS: METOPROLOL 50 MG TAB GTB SCH ×2 (08:16→18:01)
[2019-04-18] MEDS: FOLIC ACID 1 MG TAB GTB SCH (08:16)
[2019-04-18] MEDS: ASCORBIC ACID 500 MG TAB GTB SCH (08:16)
[2019-04-18] MEDS: ACCU-CHEK XX SCH ×2 (08:16→21:07)
[2019-04-18] MEDS: LINAGLIPTIN 5 MG TABLET PO SCH (08:16)
[2019-04-18] MEDS: AMLODIPINE 5 MG TAB GTB SCH ×2 (08:17→21:06)
[2019-04-18] MEDS: DOCUSATE SODIUM 10 MG/ML (10ML CUP) GTB SCH ×2 (08:17→21:05)
--- NOTE | 2019-04-18 13:32 | CONS ---
Assessment/Plan Assessment/Plan Assessment/Plan (Daily) 1 End-stage renal disease on hemodialysis.MWF 2. Anemia of chronic disease 3. Urinary tract infection, now has yeast in urine. 4. Hypertension, controlled. 5. Dementia. 6. Diabetes mellitus type II. 7. Diastolic heart failure. 8. Moderate protein energy malnutrition with cachexia. 9. Osteoarthritis. 10. GT status Assessment/Plan (Daily) - HD MWF 1 Unit PRBC along with HD today -c/w Epogen -c/w HD -Left chest Perm cath is without shaina of bleeding Consultation Date/Type/Reason Admit Date/Time Feb 19, 2019 at 01:01 Initial Consult Date Requesting Provider: JOSE RAUL ANDREWS MD Date/Time of Note DATE: 04/18/19 TIME: 13:30 24 HR Interval Summary Free Text/Dictation hb Globin 6.8 today She is in good spirits Exam/Review of Systems Exam Vitals Vital Signs Date Temp Pulse Resp B/P (MAP) Pulse Ox O2 O2 Flow FiO2 Time Delivery Rate 04/18/19 80 12:20 04/18/19 20 163/70 100 Room Air 12:10 (101) 04/18/19 97.9 07:37 Intake and Output 04/17/19 04/17/19 04/18/19 1414:59 22:59 06:59 IntakeIntake Total 250 ml OutputOutput Total 1 ml BalanceBalance 250 ml -1 ml Results Result Diagram: 04/18/19 0900 04/18/19 0900 Results 24hrs Laboratory Tests Test 04/17/19 21:09 04/18/19 08:15 04/18/19 09:00 Bedside Glucose 171 167 White Blood Count 9.1 Red Blood Count 2.63 L Hemoglobin 6.8 *L Hematocrit 21.5 L Mean Corpuscular Volume 81.7 L Mean Corpuscular Hemoglobin 25.9 L Mean Corpuscular Hemoglobin Concent 31.6 L Red Cell Distribution Width 16.8 H Platelet Count 279 Mean Platelet Volume 11.6 H Immature Granulocytes % 0.600 H Neutrophils % 72.1 Lymphocytes % 11.6 L Monocytes % 8.8 Eosinophils % 6.8 Basophils % 0.1 Nucleated Red Blood Cells % 0.6 H Immature Granulocytes # 0.050 H Neutrophils # 6.5 Lymphocytes # 1.1 Monocytes # 0.8 Eosinophils # 0.6 H Basophils # 0.0 Nucleated Red Blood Cells # 0.1 H Sodium Level 138 Potassium Level 3.1 L Chloride Level 102 Carbon Dioxide Level 32 H Anion Gap 4 L Blood Urea Nitrogen 49 H Creatinine 1.68 H Est Glomerular Filtrat Rate mL/min Glucose Level 170 Calcium Level 8.4 Phosphorus Level 3.7 Magnesium Level 2.8 H Medications Medication Current Medications Epoetin Michael-epbx (Retacrit (Esrd)) 4,000 unit MoWeFr@1700 SC Last administered on 04/15/19at 18:25; Admin Dose 4,000 UNIT; Start 02/28/19 at 17:00 Olanzapine (Zyprexa) 2.5 mg DAILY GTB Last administered on 04/18/19at 08:16; Admin Dose 2.5 MG; Start 03/01/19 at 09:00 Lansoprazole (Prevacid) 30 mg BID@0600,1800 GTB Last administered on 04/18/19at 06:19; Admin Dose 30 MG; Start 02/28/19 at 18:00 Albuterol/ Ipratropium (Duoneb) 3 ml Q2H RESP THERAPY PRN HHN SHORTNESS OF BREATH; Start 03/12/19 at 10:00 Miscellaneous Information 1 ea NOTE XX ; Start 03/13/19 at 16:30 Glucose (Glutose) 15 gm Q15M PRN PO DECREASED GLUCOSE; Start 03/13/19 at 16:30 Glucose (Glutose) 22.5 gm Q15M PRN PO DECREASED GLUCOSE; Start 03/13/19 at 16:30 Dextrose (D50w Syringe) 25 ml Q15M PRN IV DECREASED GLUCOSE; Start 03/13/19 at 16:30 Dextrose (D50w Syringe) 50 ml Q15M PRN IV DECREASED GLUCOSE; Start 03/13/19 at 16:30 Glucagon (Glucagen) 1 mg Q15M PRN IM DECREASED GLUCOSE; Start 03/13/19 at 16:30 Glucose (Glutose) 15 gm Q15M PRN BUCCAL DECREASED GLUCOSE; Start 03/13/19 at 16:30 Lorazepam (Ativan) 0.5 mg QID PRN GTB ANXIETY Last administered on 04/17/19at 21:10; Admin Dose 0.5 MG; Start 03/23/19 at 20:00 Acetaminophen (Tylenol Liquid) 650 mg Q4H PRN GTB MILD PAIN(1-3)OR ELEVATED TEMP Last administered on 04/14/19 21:00; Admin Dose 650 MG; Start 03/23/19 at 20:00 Amlodipine Besylate (Norvasc) 5 mg BID GTB Last administered on 04/17/19 21:12; Admin Dose 5 MG; Start 03/26/19 at 21:00 Ascorbic Acid (Vitamin C) 500 mg DAILY GTB Last administered on 04/18/19 08:16; Admin Dose 500 MG; Start 03/27/19 at 09:00 Docusate Sodium (Colace Liquid Cup) 100 mg BID GTB Last administered on 04/17/19 21:12; Admin Dose 100 MG; Start 03/26/19 at 21:00 Folic Acid (Folic Acid) 1 mg DAILY GTB Last administered on 04/18/19 08:16; Admin Dose 1 MG; Start 03/27/19 at 09:00 Linagliptin (Tradjenta) 5 mg DAILY PO Last administered on 04/18/19 08:16; Admin Dose 5 MG; Start 03/27/19 at 09:00 Metoprolol Tartrate (Lopressor) 50 mg BID GTB Last administered on 04/17/19 21:12; Admin Dose 50 MG; Start 03/26/19 at 21:00 Atorvastatin Calcium (Lipitor) 40 mg HS GTB Last administered on 04/17/19 21:12; Admin Dose 40 MG; Start 03/26/19 at 21:00 Diagnostic Test (Pha) (Accu-Chek) 1 ea Q12 XX Last administered on 04/17/19 21:09; Admin Dose 1 EA; Start 03/28/19 at 20:00 Morphine Sulfate (morphine) 2 mg Q6H PRN IV SEVERE PAIN LEVEL 7-10 Last administered on 04/15/19 21:02; Admin Dose 2 MG; Start 04/05/19 at 16:30 Caspofungin 50 mg/ Sodium Chloride 250 ml @ 250 mls/hr Q24H IVPB Last administered on 04/17/19 17:25; Admin Dose 250 MLS/HR; Start 04/08/19 at 17:00 Diphenhydramine HCl (Benadryl Liquid Cup) 25 mg Q6H PRN GTB ITCHING Last administered on 6/8/19at 22:11; Admin Dose 25 MG; Start 04/16/19 at 11:00 JOSE RAUL ANDREWS MD Apr 18, 2019 13:32
--- NOTE | 2019-04-18 13:51 | CONS ---
Assessment/Plan Assessment/Plan Hospital Course (Demo Recall) No acute changes, awake, looks comfortable Blood cx neg, urine culture +yeast Antimicrobials: Cancidas 04/08 Indwelling: Left subclavian permacath, PEG Physical examination: This is a chronically ill-appearing wasted elderly woman who is in no distress. Head atraumatic normocephalic. Neck is supple. Chest rise symmetrical patient is mildly tachypneic with expiratory wheezes. Heart: S1-S2, tachycardic. Abdomen soft bowel sounds present. Extremities without cyanosis edema. Assessment: 1. Systemic inflammatory response syndrome with low-grade fevers, rule out aspiration versus recurrent UTI 2. Status post recurrent UTI and bacteremia 4. End-stage renal disease, hemodialysis dependent 5. Anemia 6. 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 Plan: Clinically unchanged, stable, dc Cancidas Consultation Date/Type/Reason Admit Date/Time Feb 19, 2019 at 01:01 Initial Consult Date Type of Consult id Requesting Provider: JOSE RAUL ANDREWS MD Date/Time of Note DATE: 04/18/19 TIME: 13:51 Exam/Review of Systems Exam Vitals Vital Signs Date Temp Pulse Resp B/P (MAP) Pulse Ox O2 O2 Flow FiO2 Time Delivery Rate 04/18/19 80 12:20 04/18/19 20 163/70 100 Room Air 12:10 (101) 04/18/19 97.9 07:37 Intake and Output 04/17/19 04/17/19 04/18/19 1515:00 23:00 07:00 IntakeIntake Total 250 ml OutputOutput Total 1 ml BalanceBalance 250 ml -1 ml Results Result Diagram: 04/18/19 0900 04/18/19 0900 Results 24hrs Laboratory Tests Test 04/17/19 21:09 04/18/19 08:15 04/18/19 09:00 Bedside Glucose 171 167 White Blood Count 9.1 Red Blood Count 2.63 L Hemoglobin 6.8 *L Hematocrit 21.5 L Mean Corpuscular Volume 81.7 L Mean Corpuscular Hemoglobin 25.9 L Mean Corpuscular Hemoglobin Concent 31.6 L Red Cell Distribution Width 16.8 H Platelet Count 279 Mean Platelet Volume 11.6 H Immature Granulocytes % 0.600 H Neutrophils % 72.1 Lymphocytes % 11.6 L Monocytes % 8.8 Eosinophils % 6.8 Basophils % 0.1 Nucleated Red Blood Cells % 0.6 H Immature Granulocytes # 0.050 H Neutrophils # 6.5 Lymphocytes # 1.1 Monocytes # 0.8 Eosinophils # 0.6 H Basophils # 0.0 Nucleated Red Blood Cells # 0.1 H Sodium Level 138 Potassium Level 3.1 L Chloride Level 102 Carbon Dioxide Level 32 H Anion Gap 4 L Blood Urea Nitrogen 49 H Creatinine 1.68 H Est Glomerular Filtrat Rate mL/min Glucose Level 170 Calcium Level 8.4 Phosphorus Level 3.7 Magnesium Level 2.8 H Medications Medication Current Medications Epoetin Michael-epbx (Retacrit (Esrd)) 4,000 unit MoWeFr@1700 SC Last administered on 04/15/19at 18:25; Admin Dose 4,000 UNIT; Start 02/28/19 at 17:00 Olanzapine (Zyprexa) 2.5 mg DAILY GTB Last administered on 04/18/19at 08:16; Admin Dose 2.5 MG; Start 03/01/19 at 09:00 Lansoprazole (Prevacid) 30 mg BID@0600,1800 GTB Last administered on 04/18/19at 06:19; Admin Dose 30 MG; Start 02/28/19 at 18:00 Albuterol/ Ipratropium (Duoneb) 3 ml Q2H RESP THERAPY PRN HHN SHORTNESS OF BREATH; Start 03/12/19 at 10:00 Miscellaneous Information 1 ea NOTE XX ; Start 03/13/19 at 16:30 Glucose (Glutose) 15 gm Q15M PRN PO DECREASED GLUCOSE; Start 03/13/19 at 16:30 Glucose (Glutose) 22.5 gm Q15M PRN PO DECREASED GLUCOSE; Start 03/13/19 at 16:30 Dextrose (D50w Syringe) 25 ml Q15M PRN IV DECREASED GLUCOSE; Start 03/13/19 at 16:30 Dextrose (D50w Syringe) 50 ml Q15M PRN IV DECREASED GLUCOSE; Start 03/13/19 at 16:30 Glucagon (Glucagen) 1 mg Q15M PRN IM DECREASED GLUCOSE; Start 03/13/19 at 16:30 Glucose (Glutose) 15 gm Q15M PRN BUCCAL DECREASED GLUCOSE; Start 03/13/19 at 16:30 Lorazepam (Ativan) 0.5 mg QID PRN GTB ANXIETY Last administered on 04/17/19 21:10; Admin Dose 0.5 MG; Start 03/23/19 at 20:00 Acetaminophen (Tylenol Liquid) 650 mg Q4H PRN GTB MILD PAIN(1-3)OR ELEVATED TEMP Last administered on 04/14/19 21:00; Admin Dose 650 MG; Start 03/23/19 at 20:00 Amlodipine Besylate (Norvasc) 5 mg BID GTB Last administered on 04/17/19 21:12; Admin Dose 5 MG; Start 03/26/19 at 21:00 Ascorbic Acid (Vitamin C) 500 mg DAILY GTB Last administered on 04/18/19 08:16; Admin Dose 500 MG; Start 03/27/19 at 09:00 Docusate Sodium (Colace Liquid Cup) 100 mg BID GTB Last administered on 04/17/19 21:12; Admin Dose 100 MG; Start 03/26/19 at 21:00 Folic Acid (Folic Acid) 1 mg DAILY GTB Last administered on 04/18/19 08:16; Admin Dose 1 MG; Start 03/27/19 at 09:00 Linagliptin (Tradjenta) 5 mg DAILY PO Last administered on 04/18/19 08:16; Admin Dose 5 MG; Start 03/27/19 at 09:00 Metoprolol Tartrate (Lopressor) 50 mg BID GTB Last administered on 04/17/19 21:12; Admin Dose 50 MG; Start 03/26/19 at 21:00 Atorvastatin Calcium (Lipitor) 40 mg HS GTB Last administered on 04/17/19 21:12; Admin Dose 40 MG; Start 03/26/19 at 21:00 Diagnostic Test (Pha) (Accu-Chek) 1 ea Q12 XX Last administered on 04/17/19 21:09; Admin Dose 1 EA; Start 03/28/19 at 20:00 Morphine Sulfate (morphine) 2 mg Q6H PRN IV SEVERE PAIN LEVEL 7-10 Last administered on 04/15/19 21:02; Admin Dose 2 MG; Start 04/05/19 at 16:30 Caspofungin 50 mg/ Sodium Chloride 250 ml @ 250 mls/hr Q24H IVPB Last administered on 6/9/19at 17:25; Admin Dose 250 MLS/HR; Start 04/08/19 at 17:00 Diphenhydramine HCl (Benadryl Liquid Cup) 25 mg Q6H PRN GTB ITCHING Last administered on 04/16/19at 22:11; Admin Dose 25 MG; Start 04/16/19 at 11:00 PHYLICIA HOLCOMB NP Apr 18, 2019 13:51
[2019-04-18] MEDS ORDERED: POTASSIUM CHLORIDE (SR) 20 MEQ TAB PO STA (15:26)
[2019-04-18] MEDS ORDERED: POTASSIUM CHLORIDE 20 MEQ POWDER FOR ORAL SOLN GTB STA (15:37)
--- NOTE | 2019-04-18 16:15 | PN ---
DATE: 04/18/2019 SUBJECTIVE: The patient was seen status post dialysis with 1 unit of PRBC, which was transfused. PHYSICAL EXAMINATION: VITAL SIGNS: Temperature 97.9, pulse 87, respirations 18, blood pressure 161/76, saturation 98%. GENERAL: No acute distress. HEENT: Pale. CARDIOVASCULAR: S1, S2, regular rate. LUNGS: Clear. ABDOMEN: Soft, nontender. G-tube in place. EXTREMITIES: No clubbing, cyanosis or edema. LABORATORY DATA: White count 9.1, hemoglobin 6.8, hematocrit 22, platelet count 279, neutrophils 72% , lymphs 12%. Chemistry: Sodium 138, potassium is low at 3.1, chloride 102, bicarbonate 32, BUN is 49, creatinine 0.68 and glucose of 170. MEDICATIONS: Include: 1. Benadryl p.r.n. 2. Morphine sulfate p.r.n. 3. Vitamin C 500 mg daily. 4. Folic acid 1 mg daily. 5. Tradjenta 5 mg. 6. Norvasc 5 mg b.i.d. 7. Colace 100 b.i.d. 8. Lopressor 50 b.i.d. 9. Lipitor 40 at bedtime. 10. Ativan p.r.n. 11. Tylenol p.r.n. 12. Hypoglycemia protocol p.r.n. 13. DuoNeb p.r.n. 14. Zyprexa 2.5 daily. 15. Prevacid 30 mg daily. 16. Epogen 4000 q.Thursday, Thursday and Thursday. ASSESSMENT AND PLAN: This is an 83-year-old Marshallese female with end-stage renal disease, vascular d ementia, hypertension, diabetes mellitus, anemia, status post treatment for bacteremia, pneumonia and urinary tract infection. 1. Respiratory: Stable off oxygen, breathing comfortably. 2. Cardiovascular: Off blood thinners due to need for transfusion. May titrate blood pressure medi cation up as the patient is slightly hypertensive. The patient remains on Lopressor, amlodipine. 3. Anemia, status post 1 unit of PRBC. Continue Epogen and iron supplements. 4. Diabetes mellitus. Continue Lantus and Tradjenta. Glucose level is in the 100s. 5. Urinary tract infection, status post treated with Cancidas for Dominique glabrata. 6. End-stage renal disease status post dialysis today. 7. Psychiatric disorder. Continue Zyprexa. 8. History of left femur surgery. Supportive care, pain control. 9. Malnutrition. Continue feeding tube at 30 mL an hour, tolerating it well. Head elevation is req uired. 10. district manager is assisting with placement. 11. Monitor electrolytes, replace accordingly. I appreciate nephrology, ID, GI. Follow up. We claudia adams follow. Dictated By: DYLON HULL/MADAN Conf#: [id number] DID#: [id number] CC: JOSE RAUL ANDREWS;*EndCC*
[2019-04-18] MEDS: EPOETIN ALFA-EPBX (ESRD) 4,000 UNIT/ML VIAL SC SCH (17:43)
[2019-04-18] MEDS: ATORVASTATIN 40 MG TAB GTB SCH (21:05)
[2019-04-18] MEDS: LORAZEPAM 0.5 MG TAB GTB PRN (22:35)
[2019-04-18] MEDS: DIPHENHYDRAMINE 2.5 MG/ML 5ML CUP GTB PRN (23:20)
[2019-04-19 02:45] VITALS: BP 144/65; PULSE 81; RESP 18
[2019-04-19] MEDS: LANSOPRAZOLE 30 MG CAP GTB SCH ×2 (05:36→17:35)
[2019-04-19 08:12] VITALS: BP 168/73; PULSE 82; RESP 15
[2019-04-19] MEDS: ASCORBIC ACID 500 MG TAB GTB SCH (08:23)
[2019-04-19] MEDS: DOCUSATE SODIUM 10 MG/ML (10ML CUP) GTB SCH ×2 (08:23→20:21)
[2019-04-19] MEDS: OLANZAPINE 2.5 MG TAB GTB SCH (08:24)
[2019-04-19] MEDS: AMLODIPINE 5 MG TAB GTB SCH ×2 (08:24→20:20)
[2019-04-19] MEDS: FOLIC ACID 1 MG TAB GTB SCH (08:25)
[2019-04-19] MEDS: LINAGLIPTIN 5 MG TABLET PO SCH (08:25)
[2019-04-19] MEDS: METOPROLOL 50 MG TAB GTB SCH ×2 (08:25→20:17)
[2019-04-19] MEDS: ACCU-CHEK XX SCH ×2 (08:28→20:24)
--- NOTE | 2019-04-19 12:36 | CONS ---
Assessment/Plan Assessment/Plan Hospital Course (Demo Recall) No acute changes, looks comfortable no fevers Blood cx neg, urine culture +yeast, s/p Cancidas Indwelling: Left subclavian permacath, PEG Physical examination: This is a chronically ill-appearing wasted elderly woman who is in no distress. Head atraumatic normocephalic. Neck is supple. Chest rise symmetrical patient is mildly tachypneic with expiratory wheezes. Heart: S1-S2, tachycardic. Abdomen soft bowel sounds present. Extremities without cyanosis edema. Assessment: 1. Systemic inflammatory response syndrome with low-grade fevers, rule out aspiration versus recurrent UTI 2. Status post recurrent UTI and bacteremia 4. End-stage renal disease, hemodialysis dependent 5. Anemia 6. 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 Plan: Clinically unchanged, completed antifungal treatment for UTI, will order bladder scan once a shift with straight cath prn Consultation Date/Type/Reason Admit Date/Time Feb 19, 2019 at 01:01 Initial Consult Date Type of Consult id Requesting Provider: JOSE RAUL ANDREWS MD Date/Time of Note DATE: 04/19/19 TIME: 12:35 Exam/Review of Systems Exam Vitals Vital Signs Date Temp Pulse Resp B/P (MAP) Pulse Ox O2 O2 Flow FiO2 Time Delivery Rate 04/19/19 97.7 82 15 168/73 98 Room Air 08:12 (104) Intake and Output 04/18/19 04/18/19 04/19/19 1515:00 23:00 07:00 OutputOutput Total 1750 ml BalanceBalance -1750 ml Results Result Diagram: 04/19/19 0702 04/19/19 0702 Results 24hrs Laboratory Tests Test 04/18/19 21:04 04/19/19 07:02 04/19/19 08:27 Bedside Glucose 161 152 White Blood Count 8.8 Red Blood Count 3.31 #L Hemoglobin 8.8 #L Hematocrit 27.6 #L Mean Corpuscular Volume 83.4 Mean Corpuscular Hemoglobin 26.6 L Mean Corpuscular Hemoglobin Concent 31.9 L Red Cell Distribution Width 16.1 H Platelet Count 253 Mean Platelet Volume 11.0 H Immature Granulocytes % 0.600 H Neutrophils % 71.0 Lymphocytes % 10.4 L Monocytes % 9.9 Eosinophils % 7.8 H Basophils % 0.3 Nucleated Red Blood Cells % 0.8 H Immature Granulocytes # 0.050 H Neutrophils # 6.2 Lymphocytes # 0.9 Monocytes # 0.9 Eosinophils # 0.7 H Basophils # 0.0 Nucleated Red Blood Cells # 0.1 H Sodium Level 135 Potassium Level 3.5 Chloride Level 99 Carbon Dioxide Level 32 H Anion Gap 4 L Blood Urea Nitrogen 30 #H Creatinine 1.23 H Est Glomerular Filtrat Rate mL/min Glucose Level 117 # Calcium Level 8.1 L Phosphorus Level 2.1 #L Magnesium Level 2.6 H Medications Medication Current Medications Epoetin Michael-epbx (Retacrit (Esrd)) 4,000 unit MoWeFr@1700 SC Last administered on 04/18/19at 17:43; Admin Dose 4,000 UNIT; Start 02/28/19 at 17:00 Olanzapine (Zyprexa) 2.5 mg DAILY GTB Last administered on 04/19/19at 08:24; Admin Dose 2.5 MG; Start 03/01/19 at 09:00 Lansoprazole (Prevacid) 30 mg BID@0600,1800 GTB Last administered on 04/19/19at 05:36; Admin Dose 30 MG; Start 02/28/19 at 18:00 Albuterol/ Ipratropium (Duoneb) 3 ml Q2H RESP THERAPY PRN HHN SHORTNESS OF BREATH; Start 03/12/19 at 10:00 Miscellaneous Information 1 ea NOTE XX ; Start 03/13/19 at 16:30 Glucose (Glutose) 15 gm Q15M PRN PO DECREASED GLUCOSE; Start 03/13/19 at 16:30 Glucose (Glutose) 22.5 gm Q15M PRN PO DECREASED GLUCOSE; Start 03/13/19 at 16:30 Dextrose (D50w Syringe) 25 ml Q15M PRN IV DECREASED GLUCOSE; Start 03/13/19 at 16:30 Dextrose (D50w Syringe) 50 ml Q15M PRN IV DECREASED GLUCOSE; Start 03/13/19 at 16:30 Glucagon (Glucagen) 1 mg Q15M PRN IM DECREASED GLUCOSE; Start 03/13/19 at 16:30 Glucose (Glutose) 15 gm Q15M PRN BUCCAL DECREASED GLUCOSE; Start 03/13/19 at 16:30 Lorazepam (Ativan) 0.5 mg QID PRN GTB ANXIETY Last administered on 04/18/19 22:35; Admin Dose 0.5 MG; Start 03/23/19 at 20:00 Acetaminophen (Tylenol Liquid) 650 mg Q4H PRN GTB MILD PAIN(1-3)OR ELEVATED TEMP Last administered on 04/14/19 21:00; Admin Dose 650 MG; Start 03/23/19 at 20:00 Amlodipine Besylate (Norvasc) 5 mg BID GTB Last administered on 04/19/19 08:24; Admin Dose 5 MG; Start 03/26/19 at 21:00 Ascorbic Acid (Vitamin C) 500 mg DAILY GTB Last administered on 04/19/19 08:23; Admin Dose 500 MG; Start 03/27/19 at 09:00 Docusate Sodium (Colace Liquid Cup) 100 mg BID GTB Last administered on 04/19/19 08:23; Admin Dose 100 MG; Start 03/26/19 at 21:00 Folic Acid (Folic Acid) 1 mg DAILY GTB Last administered on 04/19/19 08:25; Admin Dose 1 MG; Start 03/27/19 at 09:00 Linagliptin (Tradjenta) 5 mg DAILY PO Last administered on 04/19/19 08:25; Admin Dose 5 MG; Start 03/27/19 at 09:00 Metoprolol Tartrate (Lopressor) 50 mg BID GTB Last administered on 04/19/19 08:25; Admin Dose 50 MG; Start 03/26/19 at 21:00 Atorvastatin Calcium (Lipitor) 40 mg HS GTB Last administered on 04/18/19 21:05; Admin Dose 40 MG; Start 03/26/19 at 21:00 Diagnostic Test (Pha) (Accu-Chek) 1 ea Q12 XX Last administered on 04/18/19 21:07; Admin Dose 1 EA; Start 03/28/19 at 20:00 Morphine Sulfate (morphine) 2 mg Q6H PRN IV SEVERE PAIN LEVEL 7-10 Last administered on 04/15/19 21:02; Admin Dose 2 MG; Start 04/05/19 at 16:30 Diphenhydramine HCl (Benadryl Liquid Cup) 25 mg Q6H PRN GTB ITCHING Last administered on 6/10/19at 23:20; Admin Dose 25 MG; Start 04/16/19 at 11:00 PHYLICIA HOLCOMB NP Apr 19, 2019 12:36
[2019-04-19 14:00] VITALS: BP 147/62; PULSE 67; RESP 16
--- NOTE | 2019-04-19 14:17 | PN ---
DATE: 04/19/2019 SUBJECTIVE: The patient seen status post 1 unit of PRBC yesterday with dialysis. Hemoglobin correct ed appropriately from 6.8 to 8.8. The patient lying in bed, overall comfortable, no acute events ove rnight. The patient is awaiting placement. retail cosmetics sales counter manager is assisting with plan. We are waiting for [facility] to accept the patient. PHYSICAL EXAMINATION: VITAL SIGNS: Temperature is 97.7, pulse 82, respiratory rate 16, blood pressure fluctuates from the 140s-160s. Saturation 98% on room air. GENERAL: No acute distress. HEENT: Normocephalic, atraumatic. CARDIOVASCULAR: S1, S2. Left upper chest Perm-A-Cath. ABDOMEN: Soft. G-tube in place. EXTREMITIES: No clubbing, cyanosis, or edema. Scattered ecchymosis throughout. Again, left femoral area is harder since she had surgery there. LABORATORY DATA: White count is 8.8, hemoglobin 8.8, hematocrit 28, platelet count 253, neutrophils 71%, lymphs 10%. Chemistry: Sodium is 135, potassium 3.5, chloride 99, bicarbonate 22, BUN is 30, c reatinine 1.23, glucose 117, phosphorus slightly low at 2.0, magnesium is 2.6. MEDICATIONS: All reviewed, include the followin. Benadryl p.r.n. 2. Morphine p.r.n. 3. Accu-Chek as directed. 4. Vitamin C 500 mg daily. 5. Folic acid 1 mg daily. 6. Tradjenta 5 mg daily. 7. Norvasc 5 mg b.i.d. 8. Colace 100 b.i.d. 9. Lopressor 50 b.i.d. 10. Lipitor 40 mg at bedtime. 11. Ativan p.r.n. 12. Tylenol p.r.n. 13. Hypoglycemia protocol as directed. 14. Zyprexa 2.5 daily. 15. Ipratropium as directed. 16. Prevacid 30 mg b.i.d. 17. Epogen 4000 every Thursday, Thursday, Thursday with dialysis. ASSESSMENT AND PLAN: This is a very unfortunate 83-year-old [place] female with end-stage renal dis ease, vascular dementia, hypertension, diabetes mellitus, anemia, status post treatment for bacteremi a, pneumonia and urinary tract infection. 1. Respiratory. Stable off oxygen, breathing comfortably. 2. Cardiovascular. Off blood thinners due to need for transfusion and anemia. Currently on amlodip ine. 3. Lopressor for blood pressure, may consider adding hydralazine. 4. Anemia, status post 1 unit of PRBC. Continue Epogen and iron supplements. 5. Diabetes mellitus on Lantus and Tradjenta. Glucose level in the 100s. 6. Recent urinary tract infection, status post treated with Cancidas for Dominique glabrata. Continue to monitor fevers and leukocytosis. This patient is prone for recurrent infection due to her debili tated state, immunocompromised state and prolonged hospitalization. 7. End-stage renal disease. Remains on dialysis 3 times a week, last dialysis yesterday. Monitor e lectrolytes. 8. Psychiatric disorder. Mood appears to be stable on Zyprexa. The patient is on 1:1 sitter due to risk of fall and removing lines and G-tube. 9. Left femur surgery in the past. Pain control as needed. 10. Malnutrition. Continue G-tube feeding at 30 mL, otherwise n.p.o. by mouth due to high risk of a spiration. Continue head elevation. 11. retail cosmetics sales counter manager is assisting with placement. Overall remains stable. We will follow up her as pro gnosis remains guarded. Dictated By: DYLON HULL/MADAN Conf#: [id number] DID#: [id number]
--- NOTE | 2019-04-19 16:17 | CONS ---
Assessment/Plan Assessment/Plan Assessment/Plan (Daily) Assessment/Plan (Daily) 1 End-stage renal disease on hemodialysis.MWF 2. Anemia of chronic disease 3. Urinary tract infection, now has yeast in urine. 4. Hypertension, controlled. 5. Dementia. 6. Diabetes mellitus type II. 7. Diastolic heart failure. 8. Moderate protein energy malnutrition with cachexia. 9. Osteoarthritis. 10. GT status Assessment/Plan (Daily) - HD MWF -c/w Epogen -c/w HD -Left chest Perm cath is without shaina of bleeding - consider avoiding benadryl Consultation Date/Type/Reason Admit Date/Time Feb 19, 2019 at 01:01 Initial Consult Date Requesting Provider: JOSE RAUL ANDREWS MD Date/Time of Note DATE: 04/19/19 TIME: 16:16 24 HR Interval Summary Free Text/Dictation pt sleeping today Exam/Review of Systems Exam Vitals Vital Signs Date Temp Pulse Resp B/P (MAP) Pulse Ox O2 O2 Flow FiO2 Time Delivery Rate 04/19/19 98.2 67 16 147/62 100 14:00 (90) 04/19/19 Room Air 08:12 Intake and Output 04/18/19 04/18/19 04/19/19 1515:00 23:00 07:00 OutputOutput Total 1750 ml BalanceBalance -1750 ml Exam left chest Permcath Constitutional: alert, oriented (2) Neck: supple Respiratory: diminished breath sounds Cardiovascular: regular rate and rhythm Gastrointestinal: soft, other (G tube ) Results Result Diagram: 04/19/19 0702 04/19/19 0702 Results 24hrs Laboratory Tests Test 04/18/19 21:04 04/19/19 07:02 04/19/19 08:27 Bedside Glucose 161 152 White Blood Count 8.8 Red Blood Count 3.31 #L Hemoglobin 8.8 #L Hematocrit 27.6 #L Mean Corpuscular Volume 83.4 Mean Corpuscular Hemoglobin 26.6 L Mean Corpuscular Hemoglobin Concent 31.9 L Red Cell Distribution Width 16.1 H Platelet Count 253 Mean Platelet Volume 11.0 H Immature Granulocytes % 0.600 H Neutrophils % 71.0 Lymphocytes % 10.4 L Monocytes % 9.9 Eosinophils % 7.8 H Basophils % 0.3 Nucleated Red Blood Cells % 0.8 H Immature Granulocytes # 0.050 H Neutrophils # 6.2 Lymphocytes # 0.9 Monocytes # 0.9 Eosinophils # 0.7 H Basophils # 0.0 Nucleated Red Blood Cells # 0.1 H Sodium Level 135 Potassium Level 3.5 Chloride Level 99 Carbon Dioxide Level 32 H Anion Gap 4 L Blood Urea Nitrogen 30 #H Creatinine 1.23 H Est Glomerular Filtrat Rate mL/min Glucose Level 117 # Calcium Level 8.1 L Phosphorus Level 2.1 #L Magnesium Level 2.6 H Medications Medication Current Medications Epoetin Michael-epbx (Retacrit (Esrd)) 4,000 unit MoWeFr@1700 SC Last administered on 04/18/19at 17:43; Admin Dose 4,000 UNIT; Start 02/28/19 at 17:00 Olanzapine (Zyprexa) 2.5 mg DAILY GTB Last administered on 04/19/19at 08:24; Admin Dose 2.5 MG; Start 03/01/19 at 09:00 Lansoprazole (Prevacid) 30 mg BID@0600,1800 GTB Last administered on 04/19/19at 05:36; Admin Dose 30 MG; Start 02/28/19 at 18:00 Albuterol/ Ipratropium (Duoneb) 3 ml Q2H RESP THERAPY PRN HHN SHORTNESS OF BREATH; Start 03/12/19 at 10:00 Miscellaneous Information 1 ea NOTE XX ; Start 03/13/19 at 16:30 Glucose (Glutose) 15 gm Q15M PRN PO DECREASED GLUCOSE; Start 03/13/19 at 16:30 Glucose (Glutose) 22.5 gm Q15M PRN PO DECREASED GLUCOSE; Start 03/13/19 at 16:30 Dextrose (D50w Syringe) 25 ml Q15M PRN IV DECREASED GLUCOSE; Start 03/13/19 at 16:30 Dextrose (D50w Syringe) 50 ml Q15M PRN IV DECREASED GLUCOSE; Start 03/13/19 at 16:30 Glucagon (Glucagen) 1 mg Q15M PRN IM DECREASED GLUCOSE; Start 03/13/19 at 16:30 Glucose (Glutose) 15 gm Q15M PRN BUCCAL DECREASED GLUCOSE; Start 03/13/19 at 16:30 Lorazepam (Ativan) 0.5 mg QID PRN GTB ANXIETY Last administered on 04/18/19at 22:35; Admin Dose 0.5 MG; Start 03/23/19 at 20:00 Acetaminophen (Tylenol Liquid) 650 mg Q4H PRN GTB MILD PAIN(1-3)OR ELEVATED TEMP Last administered on 04/14/19 21:00; Admin Dose 650 MG; Start 03/23/19 at 20:00 Amlodipine Besylate (Norvasc) 5 mg BID GTB Last administered on 04/19/19 08:24; Admin Dose 5 MG; Start 03/26/19 at 21:00 Ascorbic Acid (Vitamin C) 500 mg DAILY GTB Last administered on 04/19/19 08:23; Admin Dose 500 MG; Start 03/27/19 at 09:00 Docusate Sodium (Colace Liquid Cup) 100 mg BID GTB Last administered on 04/19/19 08:23; Admin Dose 100 MG; Start 03/26/19 at 21:00 Folic Acid (Folic Acid) 1 mg DAILY GTB Last administered on 04/19/19 08:25; Admin Dose 1 MG; Start 03/27/19 at 09:00 Linagliptin (Tradjenta) 5 mg DAILY PO Last administered on 04/19/19 08:25; Admin Dose 5 MG; Start 03/27/19 at 09:00 Metoprolol Tartrate (Lopressor) 50 mg BID GTB Last administered on 04/19/19 08:25; Admin Dose 50 MG; Start 03/26/19 at 21:00 Atorvastatin Calcium (Lipitor) 40 mg HS GTB Last administered on 04/18/19 21:05; Admin Dose 40 MG; Start 03/26/19 at 21:00 Diagnostic Test (Pha) (Accu-Chek) 1 ea Q12 XX Last administered on 04/18/19 21:07; Admin Dose 1 EA; Start 03/28/19 at 20:00 Morphine Sulfate (morphine) 2 mg Q6H PRN IV SEVERE PAIN LEVEL 7-10 Last a dministered on 04/15/19 21:02; Admin Dose 2 MG; Start 04/05/19 at 16:30 Diphenhydramine HCl (Benadryl Liquid Cup) 25 mg Q6H PRN GTB ITCHING Last administered on 04/18/19 23:20; Admin Dose 25 MG; Start 6/8/19 at 11:00 JOSE RAUL ANDREWS MD Apr 19, 2019 16:17
[2019-04-19 19:40] VITALS: BP 164/69; PULSE 74; RESP 18
[2019-04-19] MEDS: ATORVASTATIN 40 MG TAB GTB SCH (20:16)
[2019-04-19 22:12] VITALS: BP 144/65; PULSE 70
[2019-04-19] MEDS: LORAZEPAM 0.5 MG TAB GTB PRN (23:32)
[2019-04-20] VITALS (21 sets, daily range): BP systolic 110–183; BP diastolic 55–92; PULSE 67–88; RESP 18
[2019-04-20] MEDS ORDERED: hydrALAzine 20 MG INJ IV PRN (04:00)
[2019-04-20] MEDS: LANSOPRAZOLE 30 MG CAP GTB SCH ×2 (06:27→17:06)
[2019-04-20] MEDS: ACCU-CHEK XX SCH ×2 (09:30→21:00)
[2019-04-20] MEDS: OLANZAPINE 2.5 MG TAB GTB SCH (12:39)
[2019-04-20] MEDS: DOCUSATE SODIUM 10 MG/ML (10ML CUP) GTB SCH ×2 (12:39→20:27)
[2019-04-20] MEDS: FOLIC ACID 1 MG TAB GTB SCH (12:39)
[2019-04-20] MEDS: AMLODIPINE 5 MG TAB GTB SCH ×2 (12:40→20:32)
[2019-04-20] MEDS: ASCORBIC ACID 500 MG TAB GTB SCH (12:40)
[2019-04-20] MEDS: LINAGLIPTIN 5 MG TABLET PO SCH (12:40)
[2019-04-20] MEDS: METOPROLOL 50 MG TAB GTB SCH ×2 (12:40→20:28)
--- NOTE | 2019-04-20 12:55 | CONS ---
Assessment/Plan Assessment/Plan Assessment/Plan (Daily) End-stage renal disease on hemodialysis.MWF 2. Anemia of chronic disease 3. Urinary tract infection, now has yeast in urine. 4. Hypertension, controlled. 5. Dementia. 6. Diabetes mellitus type II. 7. Diastolic heart failure. 8. Moderate protein energy malnutrition with cachexia. 9. Osteoarthritis. 10. GT status Assessment/Plan (Daily) - HD MWF hd today -c/w Epogen -c/w HD -Left chest Perm cath is without shaina of bleeding Consultation Date/Type/Reason Admit Date/Time Feb 19, 2019 at 01:01 Initial Consult Date Requesting Provider: JOSE RAUL ANDREWS MD Date/Time of Note DATE: 04/20/19 TIME: 12:55 24 HR Interval Summary Free Text/Dictation hd in progress pt with sitter Exam/Review of Systems Exam Vitals Vital Signs Date Temp Pulse Resp B/P (MAP) Pulse Ox O2 O2 Flow FiO2 Time Delivery Rate 04/20/19 85 12:10 04/20/19 18 115/56 100 Room Air 12:05 (75) 04/20/19 97.3 08:00 Intake and Output 04/19/19 04/19/19 04/20/19 1515:00 23:00 07:00 IntakeIntake Total 500 ml BalanceBalance 500 ml Exam left permacath left knee swelling Results Result Diagram: 04/19/19 0702 04/19/19 0702 Results 24hrs Laboratory Tests Test 04/19/19 20:23 04/20/19 09:34 Bedside Glucose 178 118 Medications Medication Current Medications Epoetin Michael-epbx (Retacrit (Esrd)) 4,000 unit MoWeFr@1700 SC Last administered on 04/18/19at 17:43; Admin Dose 4,000 UNIT; Start 02/28/19 at 17:00 Olanzapine (Zyprexa) 2.5 mg DAILY GTB Last administered on 04/20/19at 12:39; Admin Dose 2.5 MG; Start 03/01/19 at 09:00 Lansoprazole (Prevacid) 30 mg BID@0600,1800 GTB Last administered on 04/20/19at 06:27; Admin Dose 30 MG; Start 02/28/19 at 18:00 Albuterol/ Ipratropium (Duoneb) 3 ml Q2H RESP THERAPY PRN HHN SHORTNESS OF BREATH; Start 03/12/19 at 10:00 Miscellaneous Information 1 ea NOTE XX ; Start 03/13/19 at 16:30 Glucose (Glutose) 15 gm Q15M PRN PO DECREASED GLUCOSE; Start 03/13/19 at 16:30 Glucose (Glutose) 22.5 gm Q15M PRN PO DECREASED GLUCOSE; Start 03/13/19 at 16:30 Dextrose (D50w Syringe) 25 ml Q15M PRN IV DECREASED GLUCOSE; Start 03/13/19 at 16:30 Dextrose (D50w Syringe) 50 ml Q15M PRN IV DECREASED GLUCOSE; Start 03/13/19 at 16:30 Glucagon (Glucagen) 1 mg Q15M PRN IM DECREASED GLUCOSE; Start 03/13/19 at 16:30 Glucose (Glutose) 15 gm Q15M PRN BUCCAL DECREASED GLUCOSE; Start 03/13/19 at 16: 30 Lorazepam (Ativan) 0.5 mg QID PRN GTB ANXIETY Last administered on 04/19/19at 23:32; Admin Dose 0.5 MG; Start 03/23/19 at 20:00 Acetaminophen (Tylenol Liquid) 650 mg Q4H PRN GTB MILD PAIN(1-3)OR ELEVATED TEMP Last administered on 04/14/19 21:00; Admin Dose 650 MG; Start 03/23/19 at 20:00 Amlodipine Besylate (Norvasc) 5 mg BID GTB Last administered on 04/20/19 12:40; Admin Dose 5 MG; Start 03/26/19 at 21:00 Ascorbic Acid (Vitamin C) 500 mg DAILY GTB Last administered on 04/20/19 12:40; Admin Dose 500 MG; Start 03/27/19 at 09:00 Docusate Sodium (Colace Liquid Cup) 100 mg BID GTB Last administered on 04/20/19 12:39; Admin Dose 100 MG; Start 03/26/19 at 21:00 Folic Acid (Folic Acid) 1 mg DAILY GTB Last administered on 04/20/19 12:39; Admin Dose 1 MG; Start 03/27/19 at 09:00 Linagliptin (Tradjenta) 5 mg DAILY PO Last administered on 04/20/19 12:40; Admin Dose 5 MG; Start 03/27/19 at 09:00 Metoprolol Tartrate (Lopressor) 50 mg BID GTB Last administered on 04/20/19 12:40; Admin Dose 50 MG; Start 03/26/19 at 21:00 Atorvastatin Calcium (Lipitor) 40 mg HS GTB Last administered on 04/19/19 20:16; Admin Dose 40 MG; Start 03/26/19 at 21:00 Diagnostic Test (Pha) (Accu-Chek) 1 ea Q12 XX Last administered on 04/18/19 21:07; Admin Dose 1 EA; Start 03/28/19 at 20:00 Morphine Sulfate (morphine) 2 mg Q6H PRN IV SEVERE PAIN LEVEL 7-10 Last administered on 04/15/19 21:02; Admin Dose 2 MG; Start 04/05/19 at 16:30 Diphenhydramine HCl (Benadryl Liquid Cup) 25 mg Q6H PRN GTB ITCHING Last administered on 04/18/19 23:20; Admin Dose 25 MG; Start 04/16/19 at 11:00 Hydralazine HCl (Apresoline) 10 mg Q4H PRN GTB ELEVATED BLOOD PRESSURE; Start 04/20/19 at 06:00 JOSE RAUL ANDREWS MD Apr 20, 2019 12:55
--- NOTE | 2019-04-20 13:19 | CONS ---
Assessment/Plan Assessment/Plan Hospital Course (Demo Recall) No acute changes, looks comfortable no fevers Blood cx neg, urine culture +yeast, s/p Cancidas Indwelling: Left subclavian permacath, PEG Physical examination: This is a chronically ill-appearing wasted elderly woman who is in no distress. Head atraumatic normocephalic. Neck is supple. Chest rise symmetrical patient is mildly tachypneic with expiratory wheezes. Heart: S1-S2, tachycardic. Abdomen soft bowel sounds present. Extremities without cyanosis edema. Assessment: 1. Systemic inflammatory response syndrome with low-grade fevers, rule out aspiration versus recurrent UTI 2. Status post recurrent UTI and bacteremia 4. End-stage renal disease, hemodialysis dependent 5. Anemia 6. 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 Plan: Clinically unchanged, completed antifungal treatment for UTI, continue bladder scan once a shift with straight cath prn, aspiration precautions Consultation Date/Type/Reason Admit Date/Time Feb 19, 2019 at 01:01 Initial Consult Date Type of Consult id Requesting Provider: JOSE RAUL ANDREWS MD Date/Time of Note DATE: 04/20/19 TIME: 13:18 Exam/Review of Systems Exam Vitals Vital Signs Date Temp Pulse Resp B/P (MAP) Pulse Ox O2 O2 Flow FiO2 Time Delivery Rate 04/20/19 82 150/67 12:55 (94) 04/20/19 18 100 Room Air 12:05 04/20/19 97.3 08:00 Intake and Output 04/19/19 04/19/19 04/20/19 1515:00 23:00 07:00 IntakeIntake Total 500 ml BalanceBalance 500 ml Results Result Diagram: 04/19/19 0702 04/19/19 0702 Results 24hrs Laboratory Tests Test 04/19/19 20:23 04/20/19 09:34 Bedside Glucose 178 118 Medications Medication Current Medications Epoetin Michael-epbx (Retacrit (Esrd)) 4,000 unit MoWeFr@1700 SC Last administered on 04/18/19at 17:43; Admin Dose 4,000 UNIT; Start 02/28/19 at 17:00 Olanzapine (Zyprexa) 2.5 mg DAILY GTB Last administered on 04/20/19at 12:39; Admin Dose 2.5 MG; Start 03/01/19 at 09:00 Lansoprazole (Prevacid) 30 mg BID@0600,1800 GTB Last administered on 04/20/19at 06:27; Admin Dose 30 MG; Start 02/28/19 at 18:00 Albuterol/ Ipratropium (Duoneb) 3 ml Q2H RESP THERAPY PRN HHN SHORTNESS OF BREATH; Start 03/12/19 at 10:00 Miscellaneous Information 1 ea NOTE XX ; Start 03/13/19 at 16:30 Glucose (Glutose) 15 gm Q15M PRN PO DECREASED GLUCOSE; Start 03/13/19 at 16:30 Glucose (Glutose) 22.5 gm Q15M PRN PO DECREASED GLUCOSE; Start 03/13/19 at 16:30 Dextrose (D50w Syringe) 25 ml Q15M PRN IV DECREASED GLUCOSE; Start 03/13/19 at 16:30 Dextrose (D50w Syringe) 50 ml Q15M PRN IV DECREASED GLUCOSE; Start 03/13/19 at 16:30 Glucagon (Glucagen) 1 mg Q15M PRN IM DECREASED GLUCOSE; Start 03/13/19 at 16:30 Glucose (Glutose) 15 gm Q15M PRN BUCCAL DECREASED GLUCOSE; Start 03/13/19 at 16:30 Lorazepam (Ativan) 0.5 mg QID PRN GTB ANXIETY Last administered on 04/19/19at 23:32; Admin Dose 0.5 MG; Start 03/23/19 at 20:00 Acetaminophen (Tylenol Liquid) 650 mg Q4H PRN GTB MILD PAIN(1-3)OR ELEVATED TEMP Last administered on 04/14/19at 21:00; Admin Dose 650 MG; Start 03/23/19 at 20:00 Amlodipine Besylate (Norvasc) 5 mg BID GTB Last administered on 04/20/19at 12:40; Admin Dose 5 MG; Start 03/26/19 at 21:00 Ascorbic Acid (Vitamin C) 500 mg DAILY GTB Last administered on 04/20/19at 12:40; Admin Dose 500 MG; Start 03/27/19 at 09:00 Docusate Sodium (Colace Liquid Cup) 100 mg BID GTB Last administered on 04/20/19at 12:39; Admin Dose 100 MG; Start 03/26/19 at 21:00 Folic Acid (Folic Acid) 1 mg DAILY GTB Last administered on 04/20/19 12:39; Admin Dose 1 MG; Start 03/27/19 at 09:00 Linagliptin (Tradjenta) 5 mg DAILY PO Last administered on 04/20/19 12:40; Admin Dose 5 MG; Start 03/27/19 at 09:00 Metoprolol Tartrate (Lopressor) 50 mg BID GTB Last administered on 04/20/19 12:40; Admin Dose 50 MG; Start 03/26/19 at 21:00 Atorvastatin Calcium (Lipitor) 40 mg HS GTB Last administered on 04/19/19 20:16; Admin Dose 40 MG; Start 03/26/19 at 21:00 Diagnostic Test (Pha) (Accu-Chek) 1 ea Q12 XX Last administered on 04/18/19 21:07; Admin Dose 1 EA; Start 03/28/19 at 20:00 Morphine Sulfate (morphine) 2 mg Q6H PRN IV SEVERE PAIN LEVEL 7-10 Last admin istered on 04/15/19 21:02; Admin Dose 2 MG; Start 04/05/19 at 16:30 Diphenhydramine HCl (Benadryl Liquid Cup) 25 mg Q6H PRN GTB ITCHING Last administered on 04/18/19 23:20; Admin Dose 25 MG; Start 04/16/19 at 11:00 Hydralazine HCl (Apresoline) 10 mg Q4H PRN GTB ELEVATED BLOOD PRESSURE; Start 04/20/19 at 06:00 PHYLICIA HOLCOMB NP Apr 20, 2019 13:19
--- NOTE | 2019-04-20 15:03 | PN ---
DATE: 04/20/2019 SUBJECTIVE: The patient is status post dialysis today. The daughter informed me that she is aura vargas about taking the patient home as she tried to get some help at home and that maybe next week. PHYSICAL EXAMINATION: VITAL SIGNS: Temperature is 97.3, pulse 82, respiration 18, blood pressure 158/67, saturation is 100 % on room air. GENERAL: No acute distress. The patient is currently resting comfortably. CARDIOVASCULAR: S1, S2, regular rate. LUNGS: Clear. ABDOMEN: Soft. G-tube in place. EXTREMITIES: No clubbing, cyanosis or edema. LABORATORY DATA: White count is 8.8, hemoglobin 8.8, this was yesterday. Chemistry yesterday was re viewed. Last glucose of 118, 178 and 152. MEDICATIONS: Reviewed: 1. Hydralazine p.r.n. 2. Benadryl p.r.n. 3. Morphine sulfate p.r.n. 4. Accu-Chek as directed. 5. Vitamin C 500 mg daily. 6. Folic acid 1 mg daily. 7. Tradjenta 5 mg daily. 8. Norvasc 5 mg b.i.d. 9. Colace 100 b.i.d. 10. Metoprolol tartrate 50 mg b.i.d. 11. Lipitor 40 mg at bedtime. 12. Ativan p.r.n. 13. Tylenol p.r.n. 14. Hypoglycemia protocol as directed. 15. DuoNeb every 2 hours p.r.n. 16. Zyprexa 2.5 daily. 17. Prevacid 30 mg b.i.d. 18. Epogen every Thursday, Thursday and Thursday. ASSESSMENT AND PLAN: This is an unfortunate 83-year-old [place] female with end-stage renal disease , vascular dementia, hypertension, diabetes mellitus, anemia, status post treatment for bacteremia, p neumonia and urinary tract infection. 1. Respiratory: Off oxygen. Stable. 2. Cardiovascular: Continue above blood pressure medications. Off blood thinners due to anemia. 3. Anemia, status post transfusion. Continue to monitor. Currently, no evidence of bleeding. GI h as been following. Continue Epogen and iron supplements. 4. Diabetes mellitus. Glucose levels are in the 100s. Continue Lantus and Tradjenta. 5. Urinary tract infection, status post treatment for Dominique glabrata with Cancidas, currently afeb rile with normal white count. The patient is prone for infection due to hospitalization, IV lines, e t cetera and overall immunocompromised state. 6. End-stage renal disease, dialysis 3 times a week. Last dialysis today. Monitor electrolytes. 7. Psychiatric disorder. Monitor mood. Continue Zyprexa. On 1:1 sitter due to risk of fall and re moving lines and G-tube. 8. Left femur surgery. Continue pain control as needed. 9. Malnutrition. Tolerating diet with G-tube diet at 30 mL an hour. Head elevation as tolerated. 10. Disposition either home with the daughter or assisted facility. sales communications manager to assist a nd discuss options. Dictated By: DYLON HULL/MADAN Conf#: [id number] DID#: [id number] CC: JOSE RAUL ANDREWS;*EndCC*
[2019-04-20] MEDS: ACETAMINOPHEN 650MG/20.3ML CUP GTB PRN (15:51)
[2019-04-20] MEDS: EPOETIN ALFA-EPBX (ESRD) 4,000 UNIT/ML VIAL SC SCH (17:08)
[2019-04-20] MEDS: ATORVASTATIN 40 MG TAB GTB SCH (20:27)
[2019-04-21] MEDS: LORAZEPAM 0.5 MG TAB GTB PRN (01:20)
[2019-04-21 01:59] VITALS: BP 147/62; PULSE 75; RESP 16
[2019-04-21] MEDS: LANSOPRAZOLE 30 MG CAP GTB SCH ×2 (05:30→17:10)
[2019-04-21 08:09] VITALS: BP 138/66; PULSE 70; RESP 18
[2019-04-21] MEDS: AMLODIPINE 5 MG TAB GTB SCH ×2 (08:42→21:06)
[2019-04-21] MEDS: FOLIC ACID 1 MG TAB GTB SCH (08:42)
[2019-04-21] MEDS: OLANZAPINE 2.5 MG TAB GTB SCH (08:42)
[2019-04-21] MEDS: DOCUSATE SODIUM 10 MG/ML (10ML CUP) GTB SCH ×2 (08:42→21:04)
[2019-04-21] MEDS: ASCORBIC ACID 500 MG TAB GTB SCH (08:43)
[2019-04-21] MEDS: METOPROLOL 50 MG TAB GTB SCH ×2 (08:43→21:06)
[2019-04-21] MEDS: LINAGLIPTIN 5 MG TABLET PO SCH (08:43)
[2019-04-21] MEDS: ACCU-CHEK XX SCH ×2 (08:49→21:00)
--- NOTE | 2019-04-21 11:07 | CONS ---
Assessment/Plan Assessment/Plan Hospital Course (Demo Recall) No acute changes, looks comfortable no fevers Blood cx neg, urine culture +yeast, s/p Cancidas Indwelling: Left subclavian permacath, PEG Physical examination: This is a chronically ill-appearing wasted elderly woman who is in no distress. Head atraumatic normocephalic. Neck is supple. Chest rise symmetrical patient is mildly tachypneic with expiratory wheezes. Heart: S1-S2, tachycardic. Abdomen soft bowel sounds present. Extremities without cyanosis edema. Assessment: 1. Systemic inflammatory response syndrome with low-grade fevers, rule out aspiration versus recurrent UTI 2. Status post recurrent UTI and bacteremia 4. End-stage renal disease, hemodialysis dependent 5. Anemia 6. 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 Plan: Clinically unchanged, completed antifungal treatment for UTI, continue bladder scan once a shift with straight cath prn, aspiration precautions Consultation Date/Type/Reason Admit Date/Time Feb 19, 2019 at 01:01 Initial Consult Date Type of Consult id Requesting Provider: JOSE RAUL ANDREWS MD Date/Time of Note DATE: 04/21/19 TIME: 11:07 Exam/Review of Systems Exam Vitals Vital Signs Date Temp Pulse Resp B/P (MAP) Pulse Ox O2 O2 Flow FiO2 Time Delivery Rate 04/21/19 98.2 70 18 138/66 98 Room Air 08:09 (90) Intake and Output 04/20/19 04/20/19 04/21/19 1515:00 23:00 07:00 IntakeIntake Total 700 ml OutputOutput Total 1900 ml BalanceBalance -1900 ml 700 ml Results Result Diagram: 04/19/19 0702 04/19/19 0702 Results 24hrs Laboratory Tests Test 04/20/19 20:26 04/21/19 08:45 Bedside Glucose 100 122 Medications Medication Current Medications Epoetin Michael-epbx (Retacrit (Esrd)) 4,000 unit MoWeFr@1700 SC Last administered on 04/20/19at 17:08; Admin Dose 4,000 UNIT; Start 02/28/19 at 17:00 Olanzapine (Zyprexa) 2.5 mg DAILY GTB Last administered on 04/21/19at 08:42; Admin Dose 2.5 MG; Start 03/01/19 at 09:00 Lansoprazole (Prevacid) 30 mg BID@0600,1800 GTB Last administered on 04/21/19at 05:30; Admin Dose 30 MG; Start 02/28/19 at 18:00 Albuterol/ Ipratropium (Duoneb) 3 ml Q2H RESP THERAPY PRN HHN SHORTNESS OF BREATH; Start 03/12/19 at 10:00 Miscellaneous Information 1 ea NOTE XX ; Start 03/13/19 at 16:30 Glucose (Glutose) 15 gm Q15M PRN PO DECREASED GLUCOSE; Start 03/13/19 at 16:30 Glucose (Glutose) 22.5 gm Q15M PRN PO DECREASED GLUCOSE; Start 03/13/19 at 16:30 Dextrose (D50w Syringe) 25 ml Q15M PRN IV DECREASED GLUCOSE; Start 03/13/19 at 16:30 Dextrose (D50w Syringe) 50 ml Q15M PRN IV DECREASED GLUCOSE; Start 03/13/19 at 16:30 Glucagon (Glucagen) 1 mg Q15M PRN IM DECREASED GLUCOSE; Start 03/13/19 at 16:30 Glucose (Glutose) 15 gm Q15M PRN BUCCAL DECREASED GLUCOSE; Start 03/13/19 at 16:30 Lorazepam (Ativan) 0.5 mg QID PRN GTB ANXIETY Last administered on 04/21/19at 01 :20; Admin Dose 0.5 MG; Start 03/23/19 at 20:00 Acetaminophen (Tylenol Liquid) 650 mg Q4H PRN GTB MILD PAIN(1-3)OR ELEVATED TEMP Last administered on 04/20/19at 15:51; Admin Dose 650 MG; Start 03/23/19 at 20:00 Amlodipine Besylate (Norvasc) 5 mg BID GTB Last administered on 04/21/19 08:42; Admin Dose 5 MG; Start 03/26/19 at 21:00 Ascorbic Acid (Vitamin C) 500 mg DAILY GTB Last administered on 04/21/19 08:43; Admin Dose 500 MG; Start 03/27/19 at 09:00 Docusate Sodium (Colace Liquid Cup) 100 mg BID GTB Last administered on 04/21/19at 08:42; Admin Dose 100 MG; Start 03/26/19 at 21:00 Folic Acid (Folic Acid) 1 mg DAILY GTB Last administered on 04/21/19 08:42; Admin Dose 1 MG; Start 03/27/19 at 09:00 Linagliptin (Tradjenta) 5 mg DAILY PO Last administered on 04/21/19 08:43; Admin Dose 5 MG; Start 03/27/19 at 09:00 Metoprolol Tartrate (Lopressor) 50 mg BID GTB Last administered on 04/21/19 08:43; Admin Dose 50 MG; Start 03/26/19 at 21:00 Atorvastatin Calcium (Lipitor) 40 mg HS GTB Last administered on 04/20/19 20:27; Admin Dose 40 MG; Start 03/26/19 at 21:00 Diagnostic Test (Pha) (Accu-Chek) 1 ea Q12 XX Last administered on 04/21/19 08:49; Admin Dose 1 EA; Start 03/28/19 at 20:00 Morphine Sulfate (morphine) 2 mg Q6H PRN IV SEVERE PAIN LEVEL 7-10 Last administered on 04/15/19 21:02; Admin Dose 2 MG; Start 04/05/19 at 16:30 Diphenhydramine HCl (Benadryl Liquid Cup) 25 mg Q6H PRN GTB ITCHING Last administered on 04/18/19 23:20; Admin Dose 25 MG; Start 04/16/19 at 11:00 Hydralazine HCl (Apresoline) 10 mg Q4H PRN GTB ELEVATED BLOOD PRESSURE; Start 04/20/19 at 06:00 PHYLICIA HOLCOMB NP Apr 21, 2019 11:07
--- NOTE | 2019-04-21 13:27 | PN ---
DATE: 04/21/2019 SUBJECTIVE: The patient was seen, overall comfortable and alert. Case was discussed with the carol escamilla. She is thinking about taking her mother home under hospice care, but still to undergo dialysis. PHYSICAL EXAMINATION: VITAL SIGNS: Temperature 98.2, pulse 70, respirations 18, blood pressure 138/66, saturation 98% on r oom air. GENERAL: The patient is in no acute distress. HEENT: Normocephalic, atraumatic. HEENT: Pale. CARDIOVASCULAR: S1 and S2, regular rate. LUNGS: Clear. ABDOMEN: Soft. G-tube in place. EXTREMITIES: No clubbing, cyanosis or edema. MEDICATIONS: All reviewed. They include: 1. Hydralazine p.r.n. 2. Benadryl p.r.n. 3. Morphine p.r.n. 4. Accu-Chek before meals and at bedtime. 5. Vitamin C 1 gram daily. 6. Folic acid 1 mg daily. 7. Tradjenta 5 mg daily. 8. Norvasc 100 mg b.i.d. 9. Colace 100 b.i.d. 10. Lopressor 50 b.i.d. 11. Lipitor 40 mg at bedtime. 12. Ativan p.r.n. 13. Tylenol p.r.n. 14. Hypoglycemia protocol p.r.n. 15. Zyprexa 2.5 daily. 16. Prevacid 60 mg twice daily. 17. Epogen as directed with dialysis every Thursday, Thursday and Thursday. ASSESSMENT AND PLAN: This is an unfortunate 83-year-old [place] female with end-stage renal disease , vascular dementia, hypertension, diabetes mellitus, anemia, status post treatment for bacteremia, p neumonia and urinary tract infection. 1. Respiratory: Off oxygen. Stable. 2. Cardiovascular: Blood pressure is under control. Continue above meds, off blood thinners due to anemia. 3. Anemia, status post recent transfusion. H and H corrected well. No evidence of bleeding. Allison nue Epogen and iron supplements. 4. Diabetes mellitus. Continue Lantus and Tradjenta. Glucose level in the 100s. 5. Urinary tract infection, status post treatment for Dominique glabrata with Cancidas, now off antifu ngal, off antibiotics. Monitor for fever, white count and evidence of developing infection. 6. End-stage renal disease, dialysis 3 times a week, last dialysis yesterday. Monitor electrolytes tomorrow. 7. Psychiatric disorder. Continue Zyprexa meds and 1:1 sitter due to danger to self and pulling kiran es or getting out of bed. 8. Left femur surgery. Continue pain control. 9. Malnutrition. Continue G-tube feeding at 30 mL an hour, tolerating it well. Continue head eleva tion. 10. Disposition: Possibly discharge planning home with hospice, but family still wants to pursue di alysis. 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 Dictated By: DYLON HULL/MADAN Conf#: [id number] DID#: [id number] CC: JOSE RAUL ANDREWS;*EndCC*
[2019-04-21 15:12] VITALS: BP 154/68; PULSE 84; RESP 18
--- NOTE | 2019-04-21 16:28 | CONS ---
Assessment/Plan Assessment/Plan Assessment/Plan (Daily) 1End-stage renal disease on hemodialysis.MWF 2. Anemia of chronic disease 3. Urinary tract infection, now has yeast in urine. 4. Hypertension, controlled. 5. Dementia. 6. Diabetes mellitus type II. 7. Diastolic heart failure. 8. Moderate protein energy malnutrition with cachexia. 9. Osteoarthritis. 10. GT status Assessment/Plan (Daily) - HD MWF hd tmw - Hopsice with HD? -c/w Epogen -c/w HD -Left chest Perm cath is without shaina of bleeding Consultation Date/Type/Reason Admit Date/Time Feb 19, 2019 at 01:01 Initial Consult Date Requesting Provider: JOSE RAUL ANDREWS MD Date/Time of Note DATE: 04/21/19 TIME: 16:28 24 HR Interval Summary Free Text/Dictation no n ew complains Exam/Review of Systems Exam Vitals Vital Signs Date Temp Pulse Resp B/P (MAP) Pulse Ox O2 O2 Flow FiO2 Time Delivery Rate 04/21/19 97.7 84 18 154/68 96 15:12 (96) 04/21/19 Room Air 08:09 Intake and Output 04/20/19 04/20/19 04/21/19 1515:00 23:00 07:00 IntakeIntake Total 700 ml OutputOutput Total 1900 ml BalanceBalance -1900 ml 700 ml Exam left permacth lungs clear Results Result Diagram: 04/19/19 0702 04/19/19 0702 Results 24hrs Laboratory Tests Test 04/20/19 20:26 04/21/19 08:45 Bedside Glucose 100 122 Medications Medication Current Medications Epoetin Michael-epbx (Retacrit (Esrd)) 4,000 unit MoWeFr@1700 SC Last administered on 04/20/19at 17:08; Admin Dose 4,000 UNIT; Start 02/28/19 at 17:00 Olanzapine (Zyprexa) 2.5 mg DAILY GTB Last administered on 04/21/19at 08:42; Admin Dose 2.5 MG; Start 03/01/19 at 09:00 Lansoprazole (Prevacid) 30 mg BID@0600,1800 GTB Last administered on 04/21/19at 05:30; Admin Dose 30 MG; Start 02/28/19 at 18:00 Albuterol/ Ipratropium (Duoneb) 3 ml Q2H RESP THERAPY PRN HHN SHORTNESS OF BREATH; Start 03/12/19 at 10:00 Miscellaneous Information 1 ea NOTE XX ; Start 03/13/19 at 16:30 Glucose (Glutose) 15 gm Q15M PRN PO DECREASED GLUCOSE; Start 03/13/19 at 16:30 Glucose (Glutose) 22.5 gm Q15M PRN PO DECREASED GLUCOSE; Start 03/13/19 at 16:30 Dextrose (D50w Syringe) 25 ml Q15M PRN IV DECREASED GLUCOSE; Start 03/13/19 at 16:30 Dextrose (D50w Syringe) 50 ml Q15M PRN IV DECREASED GLUCOSE; Start 03/13/19 at 16:30 Glucagon (Glucagen) 1 mg Q15M PRN IM DECREASED GLUCOSE; Start 03/13/19 at 16:30 Glucose (Glutose) 15 gm Q15M PRN BUCCAL DECREASED GLUCOSE; Start 03/13/19 at 16:30 Lorazepam (Ativan) 0.5 mg QID PRN GTB ANXIETY Last administered on 04/21/19 01:20; Admin Dose 0.5 MG; Start 03/23/19 at 20:00 Acetaminophen (Tylenol Liquid) 650 mg Q4H PRN GTB MILD PAIN(1-3)OR ELEVATED TEMP Last administered on 04/20/19 15:51; Admin Dose 650 MG; Start 03/23/19 at 20:00 Amlodipine Besylate (Norvasc) 5 mg BID GTB Last administered on 04/21/19 08:42; Admin Dose 5 MG; Start 03/26/19 at 21:00 Ascorbic Acid (Vitamin C) 500 mg DAILY GTB Last administered on 04/21/19 08: 43; Admin Dose 500 MG; Start 03/27/19 at 09:00 Docusate Sodium (Colace Liquid Cup) 100 mg BID GTB Last administered on 04/21/19 08:42; Admin Dose 100 MG; Start 03/26/19 at 21:00 Folic Acid (Folic Acid) 1 mg DAILY GTB Last administered on 04/21/19 08:42; Admin Dose 1 MG; Start 03/27/19 at 09:00 Linagliptin (Tradjenta) 5 mg DAILY PO Last administered on 04/21/19 08:43; Admin Dose 5 MG; Start 03/27/19 at 09:00 Metoprolol Tartrate (Lopressor) 50 mg BID GTB Last administered on 04/21/19 08:43; Admin Dose 50 MG; Start 03/26/19 at 21:00 Atorvastatin Calcium (Lipitor) 40 mg HS GTB Last administered on 04/20/19 20:27; Admin Dose 40 MG; Start 03/26/19 at 21:00 Diagnostic Test (Pha) (Accu-Chek) 1 ea Q12 XX Last administered on 04/21/19 08:49; Admin Dose 1 EA; Start 03/28/19 at 20:00 Morphine Sulfate (morphine) 2 mg Q6H PRN IV SEVERE PAIN LEVEL 7-10 Last administered on 04/15/19 21:02; Admin Dose 2 MG; Start 04/05/19 at 16:30 Diphenhydramine HCl (Benadryl Liquid Cup) 25 mg Q6H PRN GTB ITCHING Last administered on 04/18/19 23:20; Admin Dose 25 MG; Start 04/16/19 at 11:00 Hydralazine HCl (Apresoline) 10 mg Q4H PRN GTB ELEVATED BLOOD PRESSURE; Start 04/20/19 at 06:00 JOSE RAUL ANDREWS MD Apr 21, 2019 16:28
[2019-04-21 19:55] VITALS: BP 148/70; PULSE 85; RESP 19
[2019-04-21] MEDS: ATORVASTATIN 40 MG TAB GTB SCH (21:05)
[2019-04-22] VITALS (18 sets, daily range): BP systolic 98–171; BP diastolic 47–78; PULSE 77–92; RESP 16–18
[2019-04-22] MEDS: LANSOPRAZOLE 30 MG CAP GTB SCH ×2 (05:56→17:37)
[2019-04-22] MEDS: DOCUSATE SODIUM 10 MG/ML (10ML CUP) GTB SCH ×2 (08:30→20:27)
[2019-04-22] MEDS: FOLIC ACID 1 MG TAB GTB SCH (08:30)
[2019-04-22] MEDS: OLANZAPINE 2.5 MG TAB GTB SCH (08:30)
[2019-04-22] MEDS: ACCU-CHEK XX SCH ×2 (08:30→20:32)
[2019-04-22] MEDS: LINAGLIPTIN 5 MG TABLET PO SCH (08:30)
[2019-04-22] MEDS: METOPROLOL 50 MG TAB GTB SCH ×2 (08:30→20:28)
[2019-04-22] MEDS: AMLODIPINE 5 MG TAB GTB SCH ×2 (08:30→20:28)
[2019-04-22] MEDS: ASCORBIC ACID 500 MG TAB GTB SCH (08:30)
[2019-04-22] MEDS: DEXTROSE 5%-0.45% NACL 1,000 ML IV SCH ×2 (09:30→17:39)
--- NOTE | 2019-04-22 10:43 | CONS ---
Assessment/Plan Assessment/Plan Hospital Course (Demo Recall) 1. End-stage renal disease on hemodialysis. 2. Anemia of chronic disease 3. Urinary tract infection, now has yeast in urine. 4. Hypertension, controlled. 5. Dementia. 6. Diabetes mellitus type II. 7. Diastolic heart failure. 8. Moderate protein energy malnutrition with cachexia. 9. Osteoarthritis. 10. GT status 11. Had fever 3 days ago Assessment/Plan (Daily) -hospice eval -family interested in c/w HD -family preservation caseworker find a chair for HD -c.w HD, one today -GT needs to be inserted, spoke to nursing Consultation Date/Type/Reason Admit Date/Time Feb 19, 2019 at 01:01 Initial Consult Date 02/19/2019 Type of Consult nephrology Requesting Provider: JOSE RAUL ANDREWS MD Date/Time of Note DATE: 04/22/19 TIME: 10:41 24 HR Interval Summary Free Text/Dictation pt is sleeping Exam/Review of Systems Exam Vitals Vital Signs Date Temp Pulse Resp B/P (MAP) Pulse Ox O2 O2 Flow FiO2 Time Delivery Rate 04/22/19 78 18 149/78 99 Room Air 08:00 (101) 04/22/19 97.9 07:28 Intake and Output 04/21/19 04/21/19 04/22/19 1515:00 23:00 07:00 IntakeIntake Total 400 ml BalanceBalance 400 ml Exam left chest Perm cath Constitutional: frail Head: normocephalic Eyes: nl conjunctiva Respiratory: diminished breath sounds Cardiovascular: regular rate and rhythm Gastrointestinal: soft, other (no more G tube) Musculoskeletal: muscle weakness Results Result Diagram: 04/22/19 0705 04/22/19 0705 Results 24hrs Laboratory Tests Test 04/21/19 21:02 04/22/19 07:05 04/22/19 09:16 Bedside Glucose 173 108 White Blood Count 8.5 Red Blood Count 3.91 L Hemoglobin 10.1 L Hematocrit 32.2 L Mean Corpuscular Volume 82.4 Mean Corpuscular Hemoglobin 25.8 L Mean Corpuscular Hemoglobin Concent 31.4 L Red Cell Distribution Width 16.6 H Platelet Count 252 Mean Platelet Volume 11.3 H Immature Granulocytes % 0.600 H Neutrophils % 70.5 Lymphocytes % 11.8 L Monocytes % 8.9 Eosinophils % 8.0 H Basophils % 0.2 Nucleated Red Blood Cells % 0.5 H Immature Granulocytes # 0.050 H Neutrophils # 6.0 Lymphocytes # 1.0 Monocytes # 0.8 Eosinophils # 0.7 H Basophils # 0.0 Nucleated Red Blood Cells # 0.0 Sodium Level 136 Potassium Level 4.2 Chloride Level 105 Carbon Dioxide Level 25 Anion Gap 6 Blood Urea Nitrogen 43 H Creatinine 1.59 H Est Glomerular Filtrat Rate mL/min Glucose Level 123 Calcium Level 9.0 Phosphorus Level 3.4 Magnesium Level 2.3 Medications Medication Current Medications Epoetin Michael-epbx (Retacrit (Esrd)) 4,000 unit MoWeFr@1700 SC Last administered on 04/20/19at 17:08; Admin Dose 4,000 UNIT; Start 02/28/19 at 17:00 Olanzapine (Zyprexa) 2.5 mg DAILY GTB Last administered on 04/21/19at 08:42; Admin Dose 2.5 MG; Start 03/01/19 at 09:00 Lansoprazole (Prevacid) 30 mg BID@0600,1800 GTB Last administered on 04/21/19at 17:10; Admin Dose 30 MG; Start 02/28/19 at 18:00 Albuterol/ Ipratropium (Duoneb) 3 ml Q2H RESP THERAPY PRN HHN SHORTNESS OF BREATH; Start 03/12/19 at 10:00 Miscellaneous Information 1 ea NOTE XX ; Start 03/13/19 at 16:30 Glucose (Glutose) 15 gm Q15M PRN PO DECREASED GLUCOSE; Start 03/13/19 at 16:30 Glucose (Glutose) 22.5 gm Q15M PRN PO DECREASED GLUCOSE; Start 03/13/19 at 16:30 Dextrose (D50w Syringe) 25 ml Q15M PRN IV DECREASED GLUCOSE; Start 03/13/19 at 16:30 Dextrose (D50w Syringe) 50 ml Q15M PRN IV DECREASED GLUCOSE; Start 03/13/19 at 16:30 Glucagon (Glucagen) 1 mg Q15M PRN IM DECREASED GLUCOSE; Start 03/13/19 at 16:30 Glucose (Glutose) 15 gm Q15M PRN BUCCAL DECREASED GLUCOSE; Start 03/13/19 at 16:30 Lorazepam (Ativan) 0.5 mg QID PRN GTB ANXIETY Last administered on 04/21/19 01:20; Admin Dose 0.5 MG; Start 03/23/19 at 20:00 Acetaminophen (Tylenol Liquid) 650 mg Q4H PRN GTB MILD PAIN(1-3)OR ELEVATED TEMP Last administered on 04/20/19 15:51; Admin Dose 650 MG; Start 03/23/19 at 20:00 Amlodipine Besylate (Norvasc) 5 mg BID GTB Last administered on 04/21/19 21:06; Admin Dose 5 MG; Start 03/26/19 at 21:00 Ascorbic Acid (Vitamin C) 500 mg DAILY GTB Last administered on 04/21/19 08:43; Admin Dose 500 MG; Start 03/27/19 at 09:00 Docusate Sodium (Colace Liquid Cup) 100 mg BID GTB Last administered on 04/21/19 21:04; Admin Dose 100 MG; Start 03/26/19 at 21:00 Folic Acid (Folic Acid) 1 mg DAILY GTB Last administered on 04/21/19 08:42; Admin Dose 1 MG; Start 03/27/19 at 09:00 Linagliptin (Tradjenta) 5 mg DAILY PO Last administered on 04/21/19 08:43; Admin Dose 5 MG; Start 03/27/19 at 09:00 Metoprolol Tartrate (Lopressor) 50 mg BID GTB Last administered on 04/21/19 21:06; Admin Dose 50 MG; Start 03/26/19 at 21:00 Atorvastatin Calcium (Lipitor) 40 mg HS GTB Last administered on 04/21/19 21:05; Admin Dose 40 MG; Start 03/26/19 at 21:00 Diagnostic Test (Pha) (Accu-Chek) 1 ea Q12 XX Last administered on 04/21/19 08:49; Admin Dose 1 EA; Start 03/28/19 at 20:00 Morphine Sulfate (morphine) 2 mg Q6H PRN IV SEVERE PAIN LEVEL 7-10 Last administered on 04/15/19 21:02; Admin Dose 2 MG; Start 04/05/19 at 16:30 Diphenhydramine HCl (Benadryl Liquid Cup) 25 mg Q6H PRN GTB ITCHING Last administered on 04/18/19 23:20; Admin Dose 25 MG; Start 04/16/19 at 11:00 Hydralazine HCl (Apresoline) 10 mg Q4H PRN GTB ELEVATED BLOOD PRESSURE; Start 04/20/19 at 06:00 Dextrose/Sodium Chloride 1,000 ml @ 30 mls/hr Q24H IV ; Start 04/22/19 at 09:30 FLAVIO CLAYTON Apr 22, 2019 10:43
--- NOTE | 2019-04-22 12:09 | CONS ---
Assessment/Plan Assessment/Plan Hospital Course (Demo Recall) No acute changes, looks comfortable, no fevers Blood cx neg, urine culture +yeast, s/p Cancidas Indwelling: Left subclavian permacath, PEG Physical examination: This is a chronically ill-appearing wasted elderly woman who is in no distress. Head atraumatic normocephalic. Neck is supple. Chest rise symmetrical patient is mildly tachypneic with expiratory wheezes. Heart: S1-S2, tachycardic. Abdomen soft bowel sounds present. Extremities without cyanosis edema. Assessment: 1. Systemic inflammatory response syndrome with low-grade fevers, rule out aspiration versus recurrent UTI 2. Status post recurrent UTI and bacteremia 4. End-stage renal disease, hemodialysis dependent 5. Anemia 6. 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 Plan: Clinically unchanged, completed antifungal treatment for UTI, continue bladder scan once a shift with straight cath prn, aspiration precautions Consultation Date/Type/Reason Admit Date/Time Feb 19, 2019 at 01:01 Initial Consult Date Type of Consult id Requesting Provider: JOSE RAUL ANDREWS MD Date/Time of Note DATE: 04/22/19 TIME: 12:09 Exam/Review of Systems Exam Vitals Vital Signs Date Temp Pulse Resp B/P (MAP) Pulse Ox O2 O2 Flow FiO2 Time Delivery Rate 04/22/19 84 11:05 04/22/19 18 149/78 99 Room Air 08:00 (101) 04/22/19 97.9 07:28 Intake and Output 04/21/19 04/21/19 04/22/19 1515:00 23:00 07:00 IntakeIntake Total 400 ml BalanceBalance 400 ml Results Result Diagram: 04/22/19 0705 04/22/19 0705 Results 24hrs Laboratory Tests Test 04/21/19 21:02 04/22/19 07:05 04/22/19 09:16 Bedside Glucose 173 108 White Blood Count 8.5 Red Blood Count 3.91 L Hemoglobin 10.1 L Hematocrit 32.2 L Mean Corpuscular Volume 82.4 Mean Corpuscular Hemoglobin 25.8 L Mean Corpuscular Hemoglobin Concent 31.4 L Red Cell Distribution Width 16.6 H Platelet Count 252 Mean Platelet Volume 11.3 H Immature Granulocytes % 0.600 H Neutrophils % 70.5 Lymphocytes % 11.8 L Monocytes % 8.9 Eosinophils % 8.0 H Basophils % 0.2 Nucleated Red Blood Cells % 0.5 H Immature Granulocytes # 0.050 H Neutrophils # 6.0 Lymphocytes # 1.0 Monocytes # 0.8 Eosinophils # 0.7 H Basophils # 0.0 Nucleated Red Blood Cells # 0.0 Sodium Level 136 Potassium Level 4.2 Chloride Level 105 Carbon Dioxide Level 25 Anion Gap 6 Blood Urea Nitrogen 43 H Creatinine 1.59 H Est Glomerular Filtrat Rate mL/min Glucose Level 123 Calcium Level 9.0 Phosphorus Level 3.4 Magnesium Level 2.3 Medications Medication Current Medications Epoetin Michael-epbx (Retacrit (Esrd)) 4,000 unit MoWeFr@1700 SC Last administered on 04/20/19at 17:08; Admin Dose 4,000 UNIT; Start 02/28/19 at 17:00 Olanzapine (Zyprexa) 2.5 mg DAILY GTB Last administered on 04/21/19at 08:42; Admin Dose 2.5 MG; Start 03/01/19 at 09:00 Lansoprazole (Prevacid) 30 mg BID@0600,1800 GTB Last administered on 04/21/19at 17:10; Admin Dose 30 MG; Start 02/28/19 at 18:00 Albuterol/ Ipratropium (Duoneb) 3 ml Q2H RESP THERAPY PRN HHN SHORTNESS OF B REATH; Start 03/12/19 at 10:00 Miscellaneous Information 1 ea NOTE XX ; Start 03/13/19 at 16:30 Glucose (Glutose) 15 gm Q15M PRN PO DECREASED GLUCOSE; Start 03/13/19 at 16:30 Glucose (Glutose) 22.5 gm Q15M PRN PO DECREASED GLUCOSE; Start 03/13/19 at 16:30 Dextrose (D50w Syringe) 25 ml Q15M PRN IV DECREASED GLUCOSE; Start 03/13/19 at 16:30 Dextrose (D50w Syringe) 50 ml Q15M PRN IV DECREASED GLUCOSE; Start 03/13/19 at 16:30 Glucagon (Glucagen) 1 mg Q15M PRN IM DECREASED GLUCOSE; Start 03/13/19 at 16:30 Glucose (Glutose) 15 gm Q15M PRN BUCCAL DECREASED GLUCOSE; Start 03/13/19 at 16:30 Lorazepam (Ativan) 0.5 mg QID PRN GTB ANXIETY Last administered on 04/21/19 01:20; Admin Dose 0.5 MG; Start 03/23/19 at 20:00 Acetaminophen (Tylenol Liquid) 650 mg Q4H PRN GTB MILD PAIN(1-3)OR ELEVATED TEMP Last administered on 04/20/19 15:51; Admin Dose 650 MG; Start 03/23/19 at 20:00 Amlodipine Besylate (Norvasc) 5 mg BID GTB Last administered on 04/21/19 21:06; Admin Dose 5 MG; Start 03/26/19 at 21:00 Ascorbic Acid (Vitamin C) 500 mg DAILY GTB Last administered on 04/21/19 08:43; Admin Dose 500 MG; Start 03/27/19 at 09:00 Docusate Sodium (Colace Liquid Cup) 100 mg BID GTB Last administered on 21:04; Admin Dose 100 MG; Start 03/26/19 at 21:00 Folic Acid (Folic Acid) 1 mg DAILY GTB Last administered on 04/21/19 08:42; Admin Dose 1 MG; Start 03/27/19 at 09:00 Linagliptin (Tradjenta) 5 mg DAILY PO Last administered on 04/21/19 08:43; Admin Dose 5 MG; Start 03/27/19 at 09:00 Metoprolol Tartrate (Lopressor) 50 mg BID GTB Last administered on 04/21/19 21:06; Admin Dose 50 MG; Start 03/26/19 at 21:00 Atorvastatin Calcium (Lipitor) 40 mg HS GTB Last administered on 04/21/19 2 1:05; Admin Dose 40 MG; Start 03/26/19 at 21:00 Diagnostic Test (Pha) (Accu-Chek) 1 ea Q12 XX Last administered on 04/21/19 08:49; Admin Dose 1 EA; Start 03/28/19 at 20:00 Morphine Sulfate (morphine) 2 mg Q6H PRN IV SEVERE PAIN LEVEL 7-10 Last administered on 04/15/19 21:02; Admin Dose 2 MG; Start 04/05/19 at 16:30 Diphenhydramine HCl (Benadryl Liquid Cup) 25 mg Q6H PRN GTB ITCHING Last admini stered on 04/18/19at 23:20; Admin Dose 25 MG; Start 04/16/19 at 11:00 Hydralazine HCl (Apresoline) 10 mg Q4H PRN GTB ELEVATED BLOOD PRESSURE; Start 04/20/19 at 06:00 Dextrose/Sodium Chloride 1,000 ml @ 30 mls/hr Q24H IV ; Start 04/22/19 at 09:30 PHYLICIA HOLCOMB NP Apr 22, 2019 12:09
[2019-04-22] MEDS: EPOETIN ALFA-EPBX (ESRD) 4,000 UNIT/ML VIAL SC SCH (17:40)
[2019-04-22] MEDS: hydrALAzine 20 MG INJ IV PRN (20:27)
[2019-04-22] MEDS: ATORVASTATIN 40 MG TAB GTB SCH (20:27)
[2019-04-22] MEDS: morphine 2 MG INJ IV PRN (21:30)
[2019-04-23] VITALS (12 sets, daily range): BP systolic 98–183; BP diastolic 53–76; PULSE 90–104; RESP 17–53
[2019-04-23] MEDS: hydrALAzine 20 MG INJ IV PRN (02:01)
[2019-04-23] MEDS: morphine 2 MG INJ IV PRN (03:30)
--- NOTE | 2019-04-23 05:17 | PN ---
DATE: 04/22/2019 The patient seen. Unfortunately, the patient pulled her G-tube out and the patient now has no access to food and we were unable to put an IV line. SUBJECTIVE: Patient to undergo placement of G-tube later today. Case discussed with nursing staff. PHYSICAL EXAMINATION: VITAL SIGNS: Temperature is 97.9, pulse 77, respiration 18, blood pressure 149/78. GENERAL: No acute distress. Pale, frail. CARDIOVASCULAR: S1, S2, regular rate. LUNGS: Clear. ABDOMEN: Soft. EXTREMITIES: No clubbing, cyanosis, or edema. LABORATORY DATA: Today shows a white count of 8.5, hemoglobin 10.1, hematocrit 32, platelet count of 252 with normal differential. Chemistry: Sodium 136, potassium 4.2, chloride 105, bicarbonate 25, BUN is 43, creatinine 1.59, glucose 123. Last glucose level 124. MEDICATIONS: Reviewed. Most were not given due to the patient's n.p.o. status and absence of the G- tube. All medications were reviewed. ASSESSMENT AND PLAN: This is an 83-year-old [place] female with end-stage renal disease, vascular d ementia, hypertension, diabetes mellitus, anemia, status post treatment for bacteremia, pneumonia and urinary tract infection. 1. Respiratory. Off oxygen. Stable. 2. Cardiovascular. Monitor vitals. Resume meds after G-tube placement. 3. Anemia. H and H corrected after transfusion. Continue Epogen and iron supplements. 4. End-stage renal disease. Last dialysis today. Hepatitis panel was requested by the outside [facility]. 5. Urinary tract infection, status post treatment for Dominique glabrata with Cancidas. Monitor for r ecurrent urinary infections. 6. Psychiatric disorder. Continue Zyprexa. 7. Left femur surgery. Continue pain control. The patient is bedridden. 8. Malnutrition with dysphagia. Continue G-tube feeding at 30 mL an hour once G-tube is back in mejia ce. 9. Malnutrition with a low BMI. Dietary to follow. 10. Overall prognosis guarded. 11. Case discussed with onsite case manager regarding placement with hospice care and plan for discharge pl anning home with hospice. Dictated By: DYLON HULL/MADAN Conf#: [id number] DID#: [id number]
[2019-04-23] MEDS: LANSOPRAZOLE 30 MG CAP GTB SCH ×2 (06:00→18:11)
[2019-04-23] MEDS: OLANZAPINE 2.5 MG TAB GTB SCH (09:00)
[2019-04-23] MEDS: LINAGLIPTIN 5 MG TABLET PO SCH (09:00)
[2019-04-23] MEDS: METOPROLOL 50 MG TAB GTB SCH ×2 (09:00→20:41)
[2019-04-23] MEDS: ASCORBIC ACID 500 MG TAB GTB SCH (09:00)
[2019-04-23] MEDS: DOCUSATE SODIUM 10 MG/ML (10ML CUP) GTB SCH ×2 (09:00→20:40)
[2019-04-23] MEDS: FOLIC ACID 1 MG TAB GTB SCH (09:00)
[2019-04-23] MEDS: AMLODIPINE 5 MG TAB GTB SCH ×2 (09:00→20:41)
[2019-04-23] MEDS: ACCU-CHEK XX SCH ×2 (09:00→20:41)
[2019-04-23] MEDS: DEXTROSE 5%-0.45% NACL 1,000 ML IV SCH (09:30)
--- NOTE | 2019-04-23 11:15 | CONS ---
Assessment/Plan Assessment/Plan Hospital Course (Demo Recall) 1. End-stage renal disease on hemodialysis. 2. Anemia of chronic disease 3. Urinary tract infection, now has yeast in urine. 4. Hypertension, controlled. 5. Dementia. 6. Diabetes mellitus type II. 7. Diastolic heart failure. 8. Moderate protein energy malnutrition with cachexia. 9. Osteoarthritis. 10. GT status 11. Had fever 3 days ago Assessment/Plan (Daily) -hospice eval -family interested in c/w HD -child support case officer find a chair for HD, set up -c.w HD, epogen -GT needs to be inserted, spoke to nursing Consultation Date/Type/Reason Admit Date/Time Feb 19, 2019 at 01:01 Initial Consult Date 02/19/2019 Type of Consult nephrology Requesting Provider: JOSE RAUL ANDREWS MD Date/Time of Note DATE: 04/23/19 TIME: 11:14 24 HR Interval Summary Free Text/Dictation pt pulled G tube Exam/Review of Systems Exam Vitals Vital Signs Date Temp Pulse Resp B/P (MAP) Pulse Ox O2 O2 Flow FiO2 Time Delivery Rate 04/23/19 98.4 104 17 176/71 100 Room Air 02:00 (106) Intake and Output 04/22/19 04/22/19 04/23/19 1515:00 23:00 07:00 OutputOutput Total 1800 ml BalanceBalance -1800 ml Exam left chest Permcath Constitutional: alert, frail Head: normocephalic Eyes: nl conjunctiva Neck: supple Respiratory: diminished breath sounds Gastrointestinal: soft, surgical scars Results Result Diagram: 04/22/19 0705 04/22/19 0705 Results 24hrs Laboratory Tests Test 04/22/19 14:03 04/22/19 17:53 04/22/19 20:30 04/23/19 09:04 Bedside Glucose 124 107 124 120 Medications Medication Current Medications Epoetin Michael-epbx (Retacrit (Esrd)) 4,000 unit MoWeFr@1700 SC Last administered on 04/22/19at 17:40; Admin Dose 4,000 UNIT; Start 02/28/19 at 17:00 Olanzapine (Zyprexa) 2.5 mg DAILY GTB Last administered on 04/21/19at 08:42; Admin Dose 2.5 MG; Start 03/01/19 at 09:00 Lansoprazole (Prevacid) 30 mg BID@0600,1800 GTB Last administered on 04/21/19 17:10; Admin Dose 30 MG; Start 02/28/19 at 18:00 Albuterol/ Ipratropium (Duoneb) 3 ml Q2H RESP THERAPY PRN HHN SHORTNESS OF BREATH; Start 03/12/19 at 10:00 Miscellaneous Information 1 ea NOTE XX ; Start 03/13/19 at 16:30 Glucose (Glutose) 15 gm Q15M PRN PO DECREASED GLUCOSE; Start 03/13/19 at 16:30 Glucose (Glutose) 22.5 gm Q15M PRN PO DECREASED GLUCOSE; Start 03/13/19 at 16:30 Dextrose (D50w Syringe) 25 ml Q15M PRN IV DECREASED GLUCOSE; Start 03/13/19 at 16:30 Dextrose (D50w Syringe) 50 ml Q15M PRN IV DECREASED GLUCOSE; Start 03/13/19 at 16:30 Glucagon (Glucagen) 1 mg Q15M PRN IM DECREASED GLUCOSE; Start 03/13/19 at 16:30 Glucose (Glutose) 15 gm Q15M PRN BUCCAL DECREASED GLUCOSE; Start 03/13/19 at 16:30 Lorazepam (Ativan) 0.5 mg QID PRN GTB ANXIETY Last administered on 04/21/19at 01:20; Admin Dose 0.5 MG; Start 03/23/19 at 20:00 Acetaminophen (Tylenol Liquid) 650 mg Q4H PRN GTB MILD PAIN(1-3)OR ELEVATED TEMP Last administered on 04/20/19at 15:51; Admin Dose 650 MG; Start 03/23/19 at 20:00 Amlodipine Besylate (Norvasc) 5 mg BID GTB Last administered on 04/21/19 21:06; Admin Dose 5 MG; Start 03/26/19 at 21:00 Ascorbic Acid (Vitamin C) 500 mg DAILY GTB Last administered on 04/21/19at 08: 43; Admin Dose 500 MG; Start 03/27/19 at 09:00 Docusate Sodium (Colace Liquid Cup) 100 mg BID GTB Last administered on 04/21/19 21:04; Admin Dose 100 MG; Start 03/26/19 at 21:00 Folic Acid (Folic Acid) 1 mg DAILY GTB Last administered on 04/21/19 08:42; Admin Dose 1 MG; Start 03/27/19 at 09:00 Linagliptin (Tradjenta) 5 mg DAILY PO Last administered on 04/21/19 08:43; Admin Dose 5 MG; Start 03/27/19 at 09:00 Metoprolol Tartrate (Lopressor) 50 mg BID GTB Last administered on 04/21/19 21:06; Admin Dose 50 MG; Start 03/26/19 at 21:00 Atorvastatin Calcium (Lipitor) 40 mg HS GTB Last administered on 04/21/19 21:05; Admin Dose 40 MG; Start 03/26/19 at 21:00 Diagnostic Test (Pha) (Accu-Chek) 1 ea Q12 XX Last administered on 04/21/19 08:49; Admin Dose 1 EA; Start 03/28/19 at 20:00 Morphine Sulfate (morphine) 2 mg Q6H PRN IV SEVERE PAIN LEVEL 7-10 Last administered on 04/23/19 03:30; Admin Dose 2 MG; Start 04/05/19 at 16:30 Diphenhydramine HCl (Benadryl Liquid Cup) 25 mg Q6H PRN GTB ITCHING Last administered on 04/18/19 23:20; Admin Dose 25 MG; Start 04/16/19 at 11:00 Dextrose/Sodium Chloride 1,000 ml @ 30 mls/hr Q24H IV Last administered on 04/22/19 17:39; Admin Dose 30 MLS/HR; Start 04/22/19 at 09:30 Hydralazine HCl (Apresoline) 10 mg Q4H PRN IV ELEVATED BLOOD PRESSURE Last administered on 04/23/19 02:01; Admin Dose 10 MG; Start 04/22/19 at 20:00 Miscellaneous Information (*Order Clarification Bulletin) MEDICATION REQUIRES CLARIFICATI... Q8H XX ; Start 04/22/19 at 20:30; Stop 04/24/19 at 23:00 FLAVIO CLAYTON Apr 23, 2019 11:15
[2019-04-23] MEDS ORDERED: hydrOXYzine HCL 25 MG TAB GTB PRN (15:00)
--- NOTE | 2019-04-23 15:49 | CONS ---
Consultation Date/Type/Reason Admit Date/Time Feb 19, 2019 at 01:01 Initial Consult Date SUBJECTIVE: Patient is awake, weak. No fevers. No cute events over night. VS: stable T: 98.3 LABS: Reviewed. Antimicrobials: s/p Cancidas Indwelling: Left subclavian permacath, PEG Microbiology: Blood cx neg, urine culture +yeast, 2D ECHO: no vegetations per ECHO Physical examination: GEN: This is a chronically ill-appearing wasted elderly woman, who is in no distress. HENT: Head atraumatic normocephalic. Neck is supple. PULM: Chest rise symmetrical breath sounds with scattered rhonchi, diminished bases. Heart: S1-S2. Abdomen: soft, bowel sounds present. Extremities: no cyanosis, no edema. Assessment: 1. Systemic inflammatory response syndrome with low-grade fevers, rule out aspiration versus recurrent UTI 2. Status post recurrent UTI and bacteremia 4. End-stage renal disease, hemodialysis dependent 5. Anemia 6. 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 Pt has completed antifungal treatment for UTI. Will monitor. Continue bladder scan once a shift with straight cath prn, A spiration precautions Requesting Provider: JOSE RAUL ANDREWS MD Date/Time of Note DATE: 04/23/19 TIME: 15:46 Exam/Review of Systems Exam Vitals Vital Signs Date Temp Pulse Resp B/P (MAP) Pulse Ox O2 O2 Flow FiO2 Time Delivery Rate 04/23/19 98.3 99 18 172/59 99 14:00 (96) 04/23/19 Room Air 02:00 Intake and Output 04/22/19 04/22/19 04/23/19 1515:00 23:00 07:00 OutputOutput Total 1800 ml BalanceBalance -1800 ml Results Result Diagram: 04/22/19 0705 04/22/19 0705 Results 24hrs Laboratory Tests Test 04/22/19 17:53 04/22/19 20:30 04/23/19 09:04 Bedside Glucose 107 124 120 Medications Medication Current Medications Epoetin Michael-epbx (Retacrit (Esrd)) 4,000 unit MoWeFr@1700 SC Last administered on 04/22/19at 17:40; Admin Dose 4,000 UNIT; Start 02/28/19 at 17:00 Olanzapine (Zyprexa) 2.5 mg DAILY GTB Last administered on 04/21/19 08:42; Admin Dose 2.5 MG; Start 03/01/19 at 09:00 Lansoprazole (Prevacid) 30 mg BID@0600,1800 GTB Last administered on 04/21/19at 17:10; Admin Dose 30 MG; Start 02/28/19 at 18:00 Albuterol/ Ipratropium (Duoneb) 3 ml Q2H RESP THERAPY PRN HHN SHORTNESS OF BREATH; Start 03/12/19 at 10:00 Miscellaneous Information 1 ea NOTE XX ; Start 03/13/19 at 16:30 Glucose (Glutose) 15 gm Q15M PRN PO DECREASED GLUCOSE; Start 03/13/19 at 16:30 Glucose (Glutose) 22.5 gm Q15M PRN PO DECREASED GLUCOSE; Start 03/13/19 at 16:30 Dextrose (D50w Syringe) 25 ml Q15M PRN IV DECREASED GLUCOSE; Start 03/13/19 at 16:30 Dextrose (D50w Syringe) 50 ml Q15M PRN IV DECREASED GLUCOSE; Start 03/13/19 at 16:30 Glucagon (Glucagen) 1 mg Q15M PRN IM DECREASED GLUCOSE; Start 03/13/19 at 16:30 Glucose (Glutose) 15 gm Q15M PRN BUCCAL DECREASED GLUCOSE; Start 03/13/19 at 16:30 Lorazepam (Ativan) 0.5 mg QID PRN GTB ANXIETY Last administered on 04/21/19at 01:20; Admin Dose 0.5 MG; Start 03/23/19 at 20:00 Acetaminophen (Tylenol Liquid) 650 mg Q4H PRN GTB MILD PAIN(1-3)OR ELEVATED TEMP Last administered on 04/20/19at 15:51; Admin Dose 650 MG; Start 03/23/19 at 20:00 Amlodipine Besylate (Norvasc) 5 mg BID GTB Last administered on 04/21/19at 21:06; Admin Dose 5 MG; Start 03/26/19 at 21:00 Ascorbic Acid (Vitamin C) 500 mg DAILY GTB Last administered on 04/21/19at 08:43; Admin Dose 500 MG; Start 03/27/19 at 09:00 Docusate Sodium (Colace Liquid Cup) 100 mg BID GTB Last administered on 04/21/19 21:04; Admin Dose 100 MG; Start 03/26/19 at 21:00 Folic Acid (Folic Acid) 1 mg DAILY GTB Last administered on 04/21/19 08:42; Admin Dose 1 MG; Start 03/27/19 at 09:00 Linagliptin (Tradjenta) 5 mg DAILY PO Last administered on 04/21/19 08:43; Admin Dose 5 MG; Start 03/27/19 at 09:00 Metoprolol Tartrate (Lopressor) 50 mg BID GTB Last administered on 04/21/19 21:06; Admin Dose 50 MG; Start 03/26/19 at 21:00 Atorvastatin Calcium (Lipitor) 40 mg HS GTB Last administered on 04/21/19 21:05; Admin Dose 40 MG; Start 03/26/19 at 21:00 Diagnostic Test (Pha) (Accu-Chek) 1 ea Q12 XX Last administered on 04/21/19 08:49; Admin Dose 1 EA; Start 03/28/19 at 20:00 Morphine Sulfate (morphine) 2 mg Q6H PRN IV SEVERE PAIN LEVEL 7-10 Last administered on 04/23/19 03:30; Admin Dose 2 MG; Start 04/05/19 at 16:30 Diphenhydramine HCl (Benadryl Liquid Cup) 25 mg Q6H PRN GTB ITCHING Last administered on 04/18/19 23:20; Admin Dose 25 MG; Start 04/16/19 at 11:00 Dextrose/Sodium Chloride 1,000 ml @ 30 mls/hr Q24H IV Last administered on 04/22/19 17:39; Admin Dose 30 MLS/HR; Start 04/22/19 at 09:30 Hydralazine HCl (Apresoline) 10 mg Q4H PRN IV ELEVATED BLOOD PRESSURE Last administered on 04/23/19 02:01; Admin Dose 10 MG; Start 04/22/19 at 20:00 Miscellaneous Information (*Order Clarification Bulletin) MEDICATION REQUIRES CLARIFICATI... Q8H XX ; Start 04/22/19 at 20:30; Stop 04/24/19 at 23:00 Hydroxyzine HCl (Atarax) 25 mg Q6H PRN GTB ITCHING; Start 04/23/19 at 15:00 SCOTT SHEEHAN Apr 23, 2019 15:49
--- NOTE | 2019-04-23 16:11 | PREAC ---
Date/Time of Note Date/Time of Note DATE: 04/23/19 TIME: 16:09 Anesthesia Eval and Record Evaluation Time Pre-Procedure Interview DATE: 04/23/19 TIME: 16:09 Age 83 Sex female NPO: 8 hrs Preoperative diagnosis Dysphagia Planned procedure EGD and PEG tube placement Past Medical History Past Medical History: Includes Cardio: HTN, Dyslipidemia Endo: Diabetes Pulm: COPD Surgery & Anesthesia Issues No known issue Meds Anticoagulation: Yes Beta Magalys within 24 hr: Yes Reported Medications Linaclotide (LINZESS) 145 Mcg Capsule, 145 MCG PO DAILY, #30 CAP 02/19/19 Metoprolol Tartrate* (Lopressor*) 50 Mg Tab, 50 MG PO BID, #60 TAB give 50mg by mouth BID, Every TUE,ANDRWE,SAT., HOLD FOR SBP<110 OR [place]<60 02/19/19 Metoprolol Tartrate* (Lopressor*) 50 Mg Tab, 50 MG PO DAILY, #60 TAB Give every MON,WED,FRI,SUN,HOLD for SBP<110 or [place]<60 02/19/19 Quetiapine Fumarate* (Quetiapine Fumarate*) 25 Mg Tablet, 25 MG PO BID, TAB 02/19/19 Ferrous Sulfate* (Ferrous Sulfate*) 325 Mg Tabec, 325 MG PO BID, TAB 02/19/19 Sennosides* (Senna Lax*) 8.6 Mg Tablet, 1 TAB PO BID, TAB 02/19/19 Guaifenesin-Dextromethorphan* (Robitussin* DM) 100MG/10MG/5ML Syrup, 5 ML GTB Q4H, ML 01/26/19 Metoclopramide* (Reglan*) 5 Mg Tablet, 5 MG GTB Q6H PRN for NAUSEA AND OR VOMITING, TAB 01/26/19 Na Phos,M-B/Na Phos,Di-Ba (Fleet Enema Extra) Unknown Strength Enema, 1 APPLIC RC Q2D, ENEMA 01/26/19 Bisacodyl* (Bisacodyl*) 10 Mg Supp, 10 MG [place] DAILY, SUPP 01/26/19 Magnesium Hydroxide* (Milk Of Magnesia*) 400 Mg/5 Ml Oral.susp, 30 ML GTB QHS, ML 01/26/19 Insulin Glargine* (Lantus*) 100 Unit/Ml Soln, 4 UNIT SC QHS, #1 VIAL 01/26/19 Insulin Aspart* (Novolog Insulin Pen*) 100 Unit/Ml Soln, 0 SC .SLIDING SCALE AC, EA IF BS 0-150=0 UNIT,151-200=1 UNIT,201-250=2 UNITS,251-300=3 UNITS,301-350=4 UNITS,351-400=5 UNITS. IF >400=6 UNITS AND CALL MD IF<60=ORANGE JUICE OR GLUCOSE GEL AND CALL MD 01/26/19 Olanzapine* (Zyprexa*) 5 Mg Tablet, 5 MG GTB DAILY, #30 TAB 01/26/19 Lorazepam* (Lorazepam*) 0.5 Mg Tablet, 0.5 MG GTB HS PRN for ANXIETY, TAB 01/26/19 Amino Acids/Protein Hydrolys (PRO-STAT LIQUID) 30 Ml Liquid.pkt, 30 ML GTB DAILY SUGAR FREE 01/26/19 Multivit &Minerals/Ferrous Fum (MULTIVITAMIN LIQUID) 9 Mg/15 Ml Liquid, 5 ML GTB DAILY 01/26/19 Ascorbic Acid (Vitamin C) 500 Mg Tab, 500 MG GTB DAILY, TAB 01/26/19 Cran/Vitc/Mannose/Inulin/Brom (Uti-Stat Liquid) 3,875 Mg/30 Ml Liquid, 30 MG GTB BID 01/26/19 Cranberry Extract (Cranberry) 425 Mg Capsule, 425 MG GTB DAILY, CAP 01/26/19 Sevelamer Carbonate* (Renvela*) 800 Mg Tablet, 1.6 GM GTB WITH MEALS, TAB 01/26/19 Ipratropium-Albuterol (Ipratropium-Albuterol) 0.5-3 Mg/3 Ml Ampul.neb, 3 ML INHALATION Q6, #30 VIAL 01/26/19 Aspirin* (Aspirin* Chew) 81 Mg Tab.chew, 81 MG GTB DAILY, TAB.CHEW 01/26/19 [Nephro-Roque] No Conflict Check, 1 TAB GTB DAILY 01/26/19 Pantoprazole* (Pantoprazole*) 40 Mg Tablet.dr, 40 MG GTB AC BREAKFAST DINNER, TAB 01/26/19 Atorvastatin* (Atorvastatin*) 40 Mg Tablet, 40 MG GTB QHS, #30 TAB 01/26/19 Acetaminophen* (Acetaminophen*) 500 MG Extra Strength Tablet, 1000 MG GTB Q4H PRN for PAIN LEVEL 4-610, TAB 01/26/19 Acetaminophen* (Acetaminophen*) 500 MG Extra Strength Tablet, 1000 MG GTB DAILY PRN for PAIN AND OR ELEVATED TEMP, TAB 01/26/19 Acetaminophen* (Acetaminophen*) 325 Mg Tablet, 325 MG GTB Q4H PRN for FOR FEVER 100AND ABOVE, #30 TAB 01/26/19 Lansoprazole* (Lansoprazole*) 30 Mg Capsule.dr, 30 MG PO QAM, CAP 11/16/18 Hydralazine Hcl* (Hydralazine Hcl*) 25 Mg Tab, 25 MG PO Q8, #90 TAB 11/16/18 Valproate Sodium (Valproic Acid) 250 Mg/5 Ml Solution, 250 MG PO Q8, ML 11/16/18 Ondansetron Hcl* (Zofran*) 4 Mg Tab, 4 MG GTB Q4H PRN for NAUSEA AND OR VOMITING, TAB 10/16/18 Linagliptin (TRADJENTA) 5 Mg Tablet, 5 MG GTB DAILY, TAB 10/16/18 Polyethylene Glycol* (Miralax*) 17 Gm Powd.pack, 17 GM GTB Q24H, #30 PACKET 10/16/18 Folic Acid* (Folic Acid*) 1 Mg Tablet, 1 MG GTB DAILY, TAB 10/16/18 Docusate Sodium* (Colace*) 100 Mg Capsule, 100 MG GTB DAILY, #30 CAP 10/16/18 Amlodipine Besylate* (Norvasc*) 5 Mg Tablet, 5 MG GTB BID, TAB TAKE Q TUE,ANDREW,SAT FOR HTN, HOLD FOR SBP<110 OR [place]<60 10/16/18 Acetaminophen* (Acetaminophen*) 650 Mg Tablet, 650 MG GTB Q6H PRN for PAIN LEVEL 1-08/18, #30 TAB 10/16/18 Current Medications Epoetin Michael-epbx (Retacrit (Esrd)) 4,000 unit MoWeFr@1700 SC Last administered on 04/22/19at 17:40; Admin Dose 4,000 UNIT; Start 02/28/19 at 17:00 Olanzapine (Zyprexa) 2.5 mg DAILY GTB Last administered on 04/21/19at 08:42; Admin Dose 2.5 MG; Start 03/01/19 at 09:00 Lansoprazole (Prevacid) 30 mg BID@0600,1800 GTB Last administered on 04/21/19at 17:10; Admin Dose 30 MG; Start 02/28/19 at 18:00 Albuterol/ Ipratropium (Duoneb) 3 ml Q2H RESP THERAPY PRN HHN SHORTNESS OF BREATH; Start 03/12/19 at 10:00 Miscellaneous Information 1 ea NOTE XX ; Start 03/13/19 at 16:30 Glucose (Glutose) 15 gm Q15M PRN PO DECREASED GLUCOSE; Start 03/13/19 at 16:30 Glucose (Glutose) 22.5 gm Q15M PRN PO DECREASED GLUCOSE; Start 03/13/19 at 16:30 Dextrose (D50w Syringe) 25 ml Q15M PRN IV DECREASED GLUCOSE; Start 03/13/19 at 16:30 Dextrose (D50w Syringe) 50 ml Q15M PRN IV DECREASED GLUCOSE; Start 03/13/19 at 16:30 Glucagon (Glucagen) 1 mg Q15M PRN IM DECREASED GLUCOSE; Start 03/13/19 at 16:30 Glucose (Glutose) 15 gm Q15M PRN BUCCAL DECREASED GLUCOSE; Start 03/13/19 at 16:30 Lorazepam (Ativan) 0.5 mg QID PRN GTB ANXIETY Last administered on 04/21/19at 01:20; Admin Dose 0.5 MG; Start 03/23/19 at 20:00 Acetaminophen (Tylenol Liquid) 650 mg Q4H PRN GTB MILD PAIN(1-3)OR ELEVATED TEMP Last administered on 04/20/19at 15:51; Admin Dose 650 MG; Start 03/23/19 at 20:00 Amlodipine Besylate (Norvasc) 5 mg BID GTB Last administered on 04/21/19 21:06; Admin Dose 5 MG; Start 03/26/19 at 21:00 Ascorbic Acid (Vitamin C) 500 mg DAILY GTB Last administered on 04/21/19at 08:43; Admin Dose 500 MG; Start 03/27/19 at 09:00 Docusate Sodium (Colace Liquid Cup) 100 mg BID GTB Last administered on 04/21/19 21:04; Admin Dose 100 MG; Start 03/26/19 at 21:00 Folic Acid (Folic Acid) 1 mg DAILY GTB Last administered on 04/21/19 08:42; Admin Dose 1 MG; Start 03/27/19 at 09:00 Linagliptin (Tradjenta) 5 mg DAILY PO Last administered on 04/21/19 08:43; Admin Dose 5 MG; Start 03/27/19 at 09:00 Metoprolol Tartrate (Lopressor) 50 mg BID GTB Last administered on 04/21/19 21:06; Admin Dose 50 MG; Start 03/26/19 at 21:00 Atorvastatin Calcium (Lipitor) 40 mg HS GTB Last administered on 04/21/19 21:05; Admin Dose 40 MG; Start 03/26/19 at 21:00 Diagnostic Test (Pha) (Accu-Chek) 1 ea Q12 XX Last administered on 04/21/19 08:49; Admin Dose 1 EA; Start 03/28/19 at 20:00 Morphine Sulfate (morphine) 2 mg Q6H PRN IV SEVERE PAIN LEVEL 7-10 Last administered on 04/23/19 03:30; Admin Dose 2 MG; Start 04/05/19 at 16:30 Diphenhydramine HCl (Benadryl Liquid Cup) 25 mg Q6H PRN GTB ITCHING Last administered on 04/18/19 23:20; Admin Dose 25 MG; Start 04/16/19 at 11:00 Dextrose/Sodium Chloride 1,000 ml @ 30 mls/hr Q24H IV Last administered on 04/22/19at 17:39; Admin Dose 30 MLS/HR; Start 04/22/19 at 09:30 Hydralazine HCl (Apresoline) 10 mg Q4H PRN IV ELEVATED BLOOD PRESSURE Last administered on 04/23/19 02:01; Admin Dose 10 MG; Start 04/22/19 at 20:00 Miscellaneous Information (*Order Clarification Bulletin) MEDICATION REQUIRES CLARIFICATI... Q8H XX ; Start 04/22/19 at 20:30; Stop 04/24/19 at 23:00 Hydroxyzine HCl (Atarax) 25 mg Q6H PRN GTB ITCHING; Start 04/23/19 at 15:00 Meds reviewed: Yes Allergies Coded Allergies: No Known Allergy (Unverified , 02/18/19) Allergies Reviewed: Yes Labs/Studies Labs Reviewed: Reviewed by anesthesiologist Result Diagram: 04/22/1970404/22/19704 test: N/A Studies: ECG Pre-procedure Exam Last vitals Vital Signs Date Temp Pulse Resp B/P (MAP) Pulse Ox O2 O2 Flow FiO2 Time Delivery Rate 04/23/19 98.3 99 18 172/59 99 14:00 (96) 04/23/19 Room Air 02:00 Airway: Adequate mouth opening, Adequate thyromental dist Mallampati: Mallampati II Teeth: Normal Lung: Normal Heart: Normal ASA Physical Status ASA physical status: 4 Emergency: None Planned Anesthetic General/MAC: MAC Planned Pain Management Parenteral pain med Pre-operative Attestations Prior to commencing anesthesia and surgery, the patient was re-evaluated, there was verification of: *The patient's identity *The results of appropriate recent lab work and preoperative vital signs *The above evaluation not changing prior to induction *Anesthetic plan, risk benefits, alternative and complications discussed with patient/family; questions answered; patient/family understands, accepts and wishes to proceed. BIRD QUINONES MD Apr 23, 2019 16:11
[2019-04-23] MEDS ORDERED: PROPOFOL 40 ML ONE (16:12)
[2019-04-23] MEDS ORDERED: LIDOCAINE 2% (SDV) 5 ML INJ ONE (16:12)
[2019-04-23] MEDS ORDERED: PROPOFOL 200 MG INJ ONE (16:12)
--- NOTE | 2019-04-23 16:40 | PAC ---
Date/Time of Note Date/Time of Note DATE: 04/23/19 TIME: 16:40 Post-Anesthesia Notes Post-Anesthesia Note Last documented vital signs Vital Signs Date Temp Pulse Resp B/P (MAP) Pulse Ox O2 O2 Flow FiO2 Time Delivery Rate 04/23/19 98.3 99 18 172/59 99 14:00 (96) 04/23/19 Room Air 02:00 Activity: WNL Respiratory function: WNL Cardiovascular function: WNL Mental status: Baseline Pain reasonably controlled: Yes Hydration appropriate: Yes Nausea/Vomiting absent: Yes Comments BP:126/67, P:78, Spo2:100%, T:98,8 BIRD QUINONES MD Apr 23, 2019 16:40
--- NOTE | 2019-04-23 19:05 | CONS ---
DATE OF ADMISSION: 02/19/2019 DATE OF CONSULTATION: 04/22/2019 TYPE OF CONSULTATION: Gastrointestinal. HISTORY OF PRESENT ILLNESS: The patient is an 83-year-old female with a history of end-stage renal d isease, UTI, hypertension, dementia, diabetes mellitus, dysphagia, had pulled out her G-tube, and sta ff failed to pass Bowen catheter to keep the lumen open. GI consult was called in for replacement of G-tube. OBJECTIVE: VITAL SIGNS: Stable. LUNGS: Clear. GENERAL: Patient is cachectic. ABDOMEN: Benign. G-tube site-- tried to pass a 16-Norwegian G-tube, but the opening was completely nika sed, could not pass it. CENTRAL NERVOUS SYSTEM: Alert, awake. Moving all the extremities. EXTREMITIES: No edema. IMPRESSION 1. Gastrocutaneous opening was almost completely closed. 2. Diabetes mellitus. 3. End-stage renal disease. 4. Hypertension. 5. Urinary tract infection. 6. Osteoarthritis. 7. Dementia. 8. Renal failure. PLAN: Proceed with the placement of G-tube endoscopically. Hopefully, we can use the same opening t o pass the guidewire and complete the procedure. Dictated By: CHRISS WELCH MD PJ/NTS Conf#: [id number] DID#: [id number] CC: DYLON WALLS MD;*EndCC*
[2019-04-23] MEDS: DIPHENHYDRAMINE 2.5 MG/ML 5ML CUP GTB PRN (20:41)
[2019-04-23] MEDS: ATORVASTATIN 40 MG TAB GTB SCH (20:41)
[2019-04-23] MEDS: ACETAMINOPHEN 650MG/20.3ML CUP GTB PRN (20:42)
[2019-04-24 01:39] VITALS: BP 108/48; PULSE 94; RESP 20
[2019-04-24] MEDS: LANSOPRAZOLE 30 MG CAP GTB SCH ×2 (05:06→17:57)
[2019-04-24 08:00] VITALS: BP 113/53; PULSE 95; RESP 18
--- NOTE | 2019-04-24 08:06 | GILP ---
DATE OF PROCEDURE: PROCEDURE PERFORMED: Esophagogastroduodenoscopy. INDICATION: An 83-year-old female undergoing this procedure for dysphagia. She had pulled out her G -tube and the opening was completely closed. INFORMED CONSENT: The risk of the procedure, related and unrelated complications, anesthetic risks, alternatives were discussed. Informed consent was obtained. DESCRIPTION OF PROCEDURE: The patient was brought to the GI lab, sedated by Dr. Portillo. After optim al sedation, scope was passed with much ease into esophagus and advanced further down into stomach an d duodenum. The guidewire was passed through the external gastrocutaneous fistula. The opening was barely visible. Guidewire was moved to and fro and finally found its way into the stomach. It was s nared with transendoscopically passed snare and the entire procedure was completed by modified Ponsky technique. The patient was rescoped and position of the internal bumper confirmed. External bumper secured. Tolerated the procedure very well. IMPRESSION: Successful placement of G-tube done. PLAN: Resume feeding. Abdominal binder all the time, so that patient does not pull out the G-tube. Dictated By: CHRISS FUENTES/NTS Conf#: [id number] DID#: [id number] CC: JOSE RAUL ANDREWS; DYLON WALLS MD;*[facility]*
[2019-04-24] MEDS: OLANZAPINE 2.5 MG TAB GTB SCH (08:38)
[2019-04-24] MEDS: LINAGLIPTIN 5 MG TABLET PO SCH (08:38)
[2019-04-24] MEDS: FOLIC ACID 1 MG TAB GTB SCH (08:38)
[2019-04-24] MEDS: ASCORBIC ACID 500 MG TAB GTB SCH (08:38)
[2019-04-24] MEDS: LORAZEPAM 0.5 MG TAB GTB PRN (08:38)
[2019-04-24] MEDS: DOCUSATE SODIUM 10 MG/ML (10ML CUP) GTB SCH ×2 (08:38→20:38)
[2019-04-24] MEDS: AMLODIPINE 5 MG TAB GTB SCH ×2 (08:38→20:39)
[2019-04-24] MEDS: METOPROLOL 50 MG TAB GTB SCH ×2 (08:38→20:38)
[2019-04-24] MEDS: ACCU-CHEK XX SCH ×2 (08:45→20:49)
--- NOTE | 2019-04-24 10:34 | CONS ---
Assessment/Plan Assessment/Plan Assessment/Plan (Daily) IMPRESSION 1. Gastrocutaneous opening was almost completely closed. 2. Diabetes mellitus. 3. End-stage renal disease. 4. Hypertension. 5. Urinary tract infection. 6. Osteoarthritis. 7. Dementia. 8. Renal failure. 9. Status post PEG Plan Continue feeding Check the residual to 6 hours if greater than 100 notify physician Aspiration precaution Consultation Date/Type/Reason Admit Date/Time Feb 19, 2019 at 01:01 Initial Consult Date 02/23/19 Requesting Provider: JOSE RAUL ANDREWS MD Date/Time of Note DATE: 04/24/19 TIME: 10:32 24 HR Interval Summary Constitutional: no complaints, improved Exam/Review of Systems Exam Vitals Vital Signs Date Temp Pulse Resp B/P (MAP) Pulse Ox O2 O2 Flow FiO2 Time Delivery Rate 04/24/19 97.5 95 18 113/53 94 08:00 (73) 04/23/19 Room Air 17:16 Intake and Output 04/23/19 04/23/19 04/24/19 1515:00 23:00 07:00 IntakeIntake Total 330 ml 386 ml BalanceBalance 330 ml 386 ml Constitutional: alert, oriented, well developed Psych: no complaints, nl mood/affect Head: normocephalic, atraumatic Eyes: nl conjunctiva, EOMI, nl lids, nl sclera, PERRL ENMT: nl external ears & nose, nl lips & teeth, nl nasal mucosa & septum Neck: supple, non-tender Respiratory: clear to auscultation, normal air movement Cardiovascular: regular rate and rhythm, nl pulses Gastrointestinal: soft, nl liver, spleen, non-tender Musculoskeletal: nl extremities to inspection, nl gait and stance Extremities: normal pulses 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: SEASONER II-XII intact, nl mental status, nl speech, nl strength Skin: nl turgor; No rash or lesions Lymph: nl lymph nodes Results Result Diagram: 04/22/19 0705 04/22/19 0705 Results 24hrs Laboratory Tests Test 04/23/19 20:40 04/24/19 08:44 Bedside Glucose 158 186 Medications Medication Current Medications Epoetin Michael-epbx (Retacrit (Esrd)) 4,000 unit MoWeFr@1700 SC Last administered on 04/22/19at 17:40; Admin Dose 4,000 UNIT; Start 02/28/19 at 17:00 Olanzapine (Zyprexa) 2.5 mg DAILY GTB Last administered on 04/24/19 08:38; Admin Dose 2.5 MG; Start 03/01/19 at 09:00 Lansoprazole (Prevacid) 30 mg BID@0600,1800 GTB Last administered on 04/24/19at 05:06; Admin Dose 30 MG; Start 02/28/19 at 18:00 Albuterol/ Ipratropium (Duoneb) 3 ml Q2H RESP THERAPY PRN HHN SHORTNESS OF BREATH; Start 03/12/19 at 10:00 Miscellaneous Information 1 ea NOTE XX ; Start 03/13/19 at 16:30 Glucose (Glutose) 15 gm Q15M PRN PO DECREASED GLUCOSE; Start 03/13/19 at 16:30 Glucose (Glutose) 22.5 gm Q15M PRN PO DECREASED GLUCOSE; Start 03/13/19 at 16:30 Dextrose (D50w Syringe) 25 ml Q15M PRN IV DECREASED GLUCOSE; Start 03/13/19 at 16:30 Dextrose (D50w Syringe) 50 ml Q15M PRN IV DECREASED GLUCOSE; Start 03/13/19 at 16:30 Glucagon (Glucagen) 1 mg Q15M PRN IM DECREASED GLUCOSE; Start 03/13/19 at 16:30 Glucose (Glutose) 15 gm Q15M PRN BUCCAL DECREASED GLUCOSE; Start 03/13/19 at 16:30 Lorazepam (Ativan) 0.5 mg QID PRN GTB ANXIETY Last administered on 04/24/19at 08:38; Admin Dose 0.5 MG; Start 03/23/19 at 20:00 Acetaminophen (Tylenol Liquid) 650 mg Q4H PRN GTB MILD PAIN(1-3)OR ELEVATED TEMP Last administered on 04/23/19at 20:42; Admin Dose 650 MG; Start 03/23/19 at 20:00 Amlodipine Besylate (Norvasc) 5 mg BID GTB Last administered on 04/24/19at 08:38; Admin Dose 5 MG; Start 03/26/19 at 21:00 Ascorbic Acid (Vitamin C) 500 mg DAILY GTB Last administered on 04/24/19at 08:38; Admin Dose 500 MG; Start 03/27/19 at 09:00 Docusate Sodium (Colace Liquid Cup) 100 mg BID GTB Last administered on 04/24/19 08:38; Admin Dose 100 MG; Start 03/26/19 at 21:00 Folic Acid (Folic Acid) 1 mg DAILY GTB Last administered on 04/24/19 08:38; Admin Dose 1 MG; Start 03/27/19 at 09:00 Linagliptin (Tradjenta) 5 mg DAILY PO Last administered on 04/24/19 08:38; Admin Dose 5 MG; Start 03/27/19 at 09:00 Metoprolol Tartrate (Lopressor) 50 mg BID GTB Last administered on 04/24/19 08:38; Admin Dose 50 MG; Start 03/26/19 at 21:00 Atorvastatin Calcium (Lipitor) 40 mg HS GTB Last administered on 04/23/19 20:41; Admin Dose 40 MG; Start 03/26/19 at 21:00 Diagnostic Test (Pha) (Accu-Chek) 1 ea Q12 XX Last administered on 04/23/19 20:41; Admin Dose 1 EA; Start 03/28/19 at 20:00 Morphine Sulfate (morphine) 2 mg Q6H PRN IV SEVERE PAIN LEVEL 7-10 Last administered on 04/23/19 03:30; Admin Dose 2 MG; Start 04/05/19 at 16:30 Diphenhydramine HCl (Benadryl Liquid Cup) 25 mg Q6H PRN GTB ITCHING Last admi nistered on 04/23/19 20:41; Admin Dose 25 MG; Start 04/16/19 at 11:00 Hydralazine HCl (Apresoline) 10 mg Q4H PRN IV ELEVATED BLOOD PRESSURE Last administered on 04/23/19 02:01; Admin Dose 10 MG; Start 04/22/19 at 20:00 Hydroxyzine HCl (Atarax) 25 mg Q6H PRN GTB ITCHING; Start 04/23/19 at 15:00 CHRISS WELCH MD Apr 24, 2019 10:34
--- NOTE | 2019-04-24 10:56 | CONS ---
Assessment/Plan Assessment/Plan Hospital Course (Demo Recall) 1. End-stage renal disease on hemodialysis. 2. Anemia of chronic disease 3. Urinary tract infection, now has yeast in urine. 4. Hypertension, controlled. 5. Dementia. 6. Diabetes mellitus type II. 7. Diastolic heart failure. 8. Moderate protein energy malnutrition with cachexia. 9. Osteoarthritis. 10. GT status 11. Had fever 3 days ago Assessment/Plan (Daily) -hospice eval -family interested in c/w HD -outsole caser find a chair for HD, set upv finishe, hep. B is available, positive -c/w Epogen at the HD center -c.w HD, one tomorrow, c/w Epogen Consultation Date/Type/Reason Admit Date/Time Feb 19, 2019 at 01:01 Initial Consult Date 02/19/2019 Type of Consult nephrology Requesting Provider: JOSE RAUL ANDREWS MD Date/Time of Note DATE: 04/24/19 TIME: 10:54 24 HR Interval Summary Free Text/Dictation sleeping Exam/Review of Systems Exam Vitals Vital Signs Date Temp Pulse Resp B/P (MAP) Pulse Ox O2 O2 Flow FiO2 Time Delivery Rate 04/24/19 97.5 95 18 113/53 94 08:00 (73) 04/23/19 Room Air 17:16 Intake and Output 04/23/19 04/23/19 04/24/19 1515:00 23:00 07:00 IntakeIntake Total 330 ml 386 ml BalanceBalance 330 ml 386 ml Exam left chest Permcath Constitutional: frail ENMT: nl external ears & nose Neck: supple Respiratory: diminished breath sounds Cardiovascular: regular rate and rhythm Gastrointestinal: soft, surgical scars, other (GT) Musculoskeletal: muscle weakness Results Result Diagram: 04/22/19 0705 04/22/19 0705 Results 24hrs Laboratory Tests Test 04/23/19 20:40 04/24/19 08:44 Bedside Glucose 158 186 Medications Medication Current Medications Epoetin Michael-epbx (Retacrit (Esrd)) 4,000 unit MoWeFr@1700 SC Last administered on 04/22/19at 17:40; Admin Dose 4,000 UNIT; Start 02/28/19 at 17:00 Olanzapine (Zyprexa) 2.5 mg DAILY GTB Last administered on 04/24/19at 08:38; Admin Dose 2.5 MG; Start 03/01/19 at 09:00 Lansoprazole (Prevacid) 30 mg BID@0600,1800 GTB Last administered on 04/24/19 05:06; Admin Dose 30 MG; Start 02/28/19 at 18:00 Albuterol/ Ipratropium (Duoneb) 3 ml Q2H RESP THERAPY PRN HHN SHORTNESS OF BREATH; Start 03/12/19 at 10:00 Miscellaneous Information 1 ea NOTE XX ; Start 03/13/19 at 16:30 Glucose (Glutose) 15 gm Q15M PRN PO DECREASED GLUCOSE; Start 03/13/19 at 16:30 Glucose (Glutose) 22.5 gm Q15M PRN PO DECREASED GLUCOSE; Start 03/13/19 at 16:30 Dextrose (D50w Syringe) 25 ml Q15M PRN IV DECREASED GLUCOSE; Start 03/13/19 at 16:30 Dextrose (D50w Syringe) 50 ml Q15M PRN IV DECREASED GLUCOSE; Start 03/13/19 at 16:30 Glucagon (Glucagen) 1 mg Q15M PRN IM DECREASED GLUCOSE; Start 03/13/19 at 16:30 Glucose (Glutose) 15 gm Q15M PRN BUCCAL DECREASED GLUCOSE; Start 03/13/19 at 16:30 Lorazepam (Ativan) 0.5 mg QID PRN GTB ANXIETY Last administered on 04/24/19 08:38; Admin Dose 0.5 MG; Start 03/23/19 at 20:00 Acetaminophen (Tylenol Liquid) 650 mg Q4H PRN GTB MILD PAIN(1-3)OR ELEVATED TEMP Last administered on 04/23/19at 20:42; Admin Dose 650 MG; Start 03/23/19 at 20:00 Amlodipine Besylate (Norvasc) 5 mg BID GTB Last administered on 04/24/19 08:38; Admin Dose 5 MG; Start 03/26/19 at 21:00 Ascorbic Acid (Vitamin C) 500 mg DAILY GTB Last administered on 04/24/19 08:38; Admin Dose 500 MG; Start 03/27/19 at 09:00 Docusate Sodium (Colace Liquid Cup) 100 mg BID GTB Last administered on 04/24/19 08:38; Admin Dose 100 MG; Start 03/26/19 at 21:00 Folic Acid (Folic Acid) 1 mg DAILY GTB Last administered on 04/24/19 08:38; Admin Dose 1 MG; Start 03/27/19 at 09:00 Linagliptin (Tradjenta) 5 mg DAILY PO Last administered on 04/24/19 08:38; Admin Dose 5 MG; Start 03/27/19 at 09:00 Metoprolol Tartrate (Lopressor) 50 mg BID GTB Last administered on 04/24/19 08:38; Admin Dose 50 MG; Start 03/26/19 at 21:00 Atorvastatin Calcium (Lipitor) 40 mg HS GTB Last administered on 04/23/19 20:41; Admin Dose 40 MG; Start 03/26/19 at 21:00 Diagnostic Test (Pha) (Accu-Chek) 1 ea Q12 XX Last administered on 04/23/19 20:41; Admin Dose 1 EA; Start 03/28/19 at 20:00 Morphine Sulfate (morphine) 2 mg Q6H PRN IV SEVERE PAIN LEVEL 7-10 Last administered on 04/23/19 03:30; Admin Dose 2 MG; Start 04/05/19 at 16:30 Diphenhydramine HCl (Benadryl Liquid Cup) 25 mg Q6H PRN GTB ITCHING Last administered on 04/23/19 20:41; Admin Dose 25 MG; Start 04/16/19 at 11:00 Hydralazine HCl (Apresoline) 10 mg Q4H PRN IV ELEVATED BLOOD PRESSURE Last administered on 04/23/19 02:01; Admin Dose 10 MG; Start 04/22/19 at 20:00 Hydroxyzine HCl (Atarax) 25 mg Q6H PRN GTB ITCHING; Start 04/23/19 at 15:00 FLAVIO CLAYTON Apr 24, 2019 10:56
--- NOTE | 2019-04-24 14:39 | CONS ---
Consultation Date/Type/Reason Admit Date/Time Feb 19, 2019 at 01:01 Initial Consult Date SUBJECTIVE: Patient is sleeping, weak. No fevers. No cute events over night. VS: stable T: 97.5 LABS: Reviewed. Antimicrobials: s/p Cancidas Indwelling: Left subclavian permacath, PEG Microbiology: Blood cx neg, urine culture +yeast, 2D ECHO: no vegetations per ECHO Physical examination: GEN: This is a chronically ill-appearing wasted elderly woman, who is in no distress. HENT: Head atraumatic normocephalic. Neck is supple. PULM: Chest rise symmetrical breath sounds with scattered rhonchi, diminished bases. Heart: S1-S2. Abdomen: soft, bowel sounds present. Extremities: no cyanosis, no edema. Assessment: 1. Systemic inflammatory response syndrome with low-grade fevers, rule out aspiration versus recurrent UTI 2. Status post recurrent UTI and bacteremia 4. End-stage renal disease, hemodialysis dependent 5. Anemia 6. 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 Pt has completed antifungal treatment for UTI. Will monitor. Continue bladder scan once a shift with straight cath prn, Aspiration precautions. Continuing HD. Requesting Provider: JOSE RAUL ANDREWS MD Date/Time of Note DATE: 04/24/19 TIME: 14:38 Exam/Review of Systems Exam Vitals Vital Signs Date Temp Pulse Resp B/P (MAP) Pulse Ox O2 O2 Flow FiO2 Time Delivery Rate 04/24/19 97.5 95 18 113/53 94 08:00 (73) 04/23/19 Room Air 17:16 Intake and Output 04/23/19 04/23/19 04/24/19 1515:00 23:00 07:00 IntakeIntake Total 330 ml 386 ml BalanceBalance 330 ml 386 ml Results Result Diagram: 04/22/19 0705 04/22/19 0705 Results 24hrs Laboratory Tests Test 04/23/19 20:40 04/24/19 08:44 Bedside Glucose 158 186 Medications Medication Current Medications Epoetin Michael-epbx (Retacrit (Esrd)) 4,000 unit MoWeFr@1700 SC Last administered on 04/22/19at 17:40; Admin Dose 4,000 UNIT; Start 02/28/19 at 17:00 Olanzapine (Zyprexa) 2.5 mg DAILY GTB Last administered on 04/24/19 08:38; Admin Dose 2.5 MG; Start 03/01/19 at 09:00 Lansoprazole (Prevacid) 30 mg BID@0600,1800 GTB Last administered on 04/24/19at 05:06; Admin Dose 30 MG; Start 02/28/19 at 18:00 Albuterol/ Ipratropium (Duoneb) 3 ml Q2H RESP THERAPY PRN HHN SHORTNESS OF BREATH; Start 03/12/19 at 10:00 Miscellaneous Information 1 ea NOTE XX ; Start 03/13/19 at 16:30 Glucose (Glutose) 15 gm Q15M PRN PO DECREASED GLUCOSE; Start 03/13/19 at 16:30 Glucose (Glutose) 22.5 gm Q15M PRN PO DECREASED GLUCOSE; Start 03/13/19 at 16:30 Dextrose (D50w Syringe) 25 ml Q15M PRN IV DECREASED GLUCOSE; Start 03/13/19 at 16:30 Dextrose (D50w Syringe) 50 ml Q15M PRN IV DECREASED GLUCOSE; Start 03/13/19 at 16:30 Glucagon (Glucagen) 1 mg Q15M PRN IM DECREASED GLUCOSE; Start 03/13/19 at 16:30 Glucose (Glutose) 15 gm Q15M PRN BUCCAL DECREASED GLUCOSE; Start 03/13/19 at 16:30 Lorazepam (Ativan) 0.5 mg QID PRN GTB ANXIETY Last administered on 04/24/19at 08:38; Admin Dose 0.5 MG; Start 03/23/19 at 20:00 Acetaminophen (Tylenol Liquid) 650 mg Q4H PRN GTB MILD PAIN(1-3)OR ELEVATED TEMP Last administered on 04/23/19at 20:42; Admin Dose 650 MG; Start 03/23/19 at 20:00 Amlodipine Besylate (Norvasc) 5 mg BID GTB Last administered on 04/24/19 08:38; Admin Dose 5 MG; Start 03/26/19 at 21:00 Ascorbic Acid (Vitamin C) 500 mg DAILY GTB Last administered on 04/24/19at 08:38; Admin Dose 500 MG; Start 03/27/19 at 09:00 Docusate Sodium (Colace Liquid Cup) 100 mg BID GTB Last administered on 04/24/19 08:38; Admin Dose 100 MG; Start 03/26/19 at 21:00 Folic Acid (Folic Acid) 1 mg DAILY GTB Last administered on 04/24/19 08:38; Admin Dose 1 MG; Start 03/27/19 at 09:00 Linagliptin (Tradjenta) 5 mg DAILY PO Last administered on 04/24/19 08:38; Admin Dose 5 MG; Start 03/27/19 at 09:00 Metoprolol Tartrate (Lopressor) 50 mg BID GTB Last administered on 04/24/19 08:38; Admin Dose 50 MG; Start 03/26/19 at 21:00 Atorvastatin Calcium (Lipitor) 40 mg HS GTB Last administered on 04/23/19 20:41; Admin Dose 40 MG; Start 03/26/19 at 21:00 Diagnostic Test (Pha) (Accu-Chek) 1 ea Q12 XX Last administered on 04/23/19 20:41; Admin Dose 1 EA; Start 03/28/19 at 20:00 Morphine Sulfate (morphine) 2 mg Q6H PRN IV SEVERE PAIN LEVEL 7-10 Last administered on 04/23/19 03:30; Admin Dose 2 MG; Start 04/05/19 at 16:30 Diphenhydramine HCl (Benadryl Liquid Cup) 25 mg Q6H PRN GTB ITCHING Last administered on 04/23/19 20:41; Admin Dose 25 MG; Start 04/16/19 at 11:00 Hydralazine HCl (Apresoline) 10 mg Q4H PRN IV ELEVATED BLOOD PRESSURE Last administered on 04/23/19 02:01; Admin Dose 10 MG; Start 04/22/19 at 20:00 Hydroxyzine HCl (Atarax) 25 mg Q6H PRN GTB ITCHING; Start 04/23/19 at 15:00 SCOTT SHEEHAN Apr 24, 2019 14:39
[2019-04-24] MEDS: morphine 2 MG INJ IV PRN (17:57)
[2019-04-24 19:57] VITALS: BP 193/79; PULSE 88
[2019-04-24] MEDS: ATORVASTATIN 40 MG TAB GTB SCH (20:38)
[2019-04-24] MEDS: CARISOPRODOL 350 MG TAB GTB SCH (20:56)
[2019-04-24 21:27] VITALS: PULSE 85
[2019-04-24 21:45] VITALS: BP 125/103; PULSE 80; RESP 19
--- NOTE | 2019-04-24 21:54 | QN ---
Documentation Comment Emergency medicine consultation note: I was asked by PMD Dr. Perez to consult this patient for anterior dislocation of both mandibular condyles diagnosed today on CT of the face. Patient's jaw and mouth were wide open, her lips could not close, and can she could not speak clearly. I reduced her mandibles manually at the bedside in the ICU using the extraoral reduction technique for anterior mandible dislocation while facing the patient. Reduction was successful and patient was able to easily open and close her mouth and jaw and speak clearly, she was able to purse her lips and had no complaints of pain. I do suspect jaw laxity though and she may have future episodes of anterior bilateral mandible dislocation requiring the surgical input of oral maxillary facial surgeon. Although this can be pursued as an outpatient as patient is n.p.o. and is fed via gastrostomy tube. Diagnostic impression: Status post manual reduction of bilateral mandibular anterior dislocation. VICTORINO AMADOR MD Apr 24, 2019 21:54
[2019-04-24] MEDS: hydrALAzine 20 MG INJ IV PRN (22:21)
[2019-04-24] MEDS ORDERED: POLYETHYLENE GLYCOL 17 GM PACKET GTB SCH (22:30)
[2019-04-24] MEDS ORDERED: ACETAMINOPHEN 500 MG TAB PO PRN ×2 (22:30)
[2019-04-24] MEDS ORDERED: METOCLOPRAMIDE 5 MG TAB GTB PRN (22:30)
[2019-04-24] MEDS: ALBUTEROL/IPRATROPIUM (NEB) 3 ML AMP NEB SCH (23:00)
[2019-04-24] MEDS: DIPHENHYDRAMINE 2.5 MG/ML 5ML CUP GTB PRN (23:43)
[2019-04-25] VITALS (17 sets, daily range): BP systolic 92–162; BP diastolic 50–82; PULSE 76–91; RESP 16–20
[2019-04-25] MEDS: ALBUTEROL/IPRATROPIUM (NEB) 3 ML AMP NEB SCH ×3 (01:20→14:00)
[2019-04-25] MEDS: LANSOPRAZOLE 30 MG CAP GTB SCH ×2 (05:00→17:19)
[2019-04-25] MEDS ORDERED: PANTOPRAZOLE (EC) 40 MG TAB PO SCH (07:05)
--- NOTE | 2019-04-25 07:26 | PN ---
DATE: 04/24/2019 SUBJECTIVE: The patient seen. I received a call that the patient's jaw is locked. As I reviewed records, the patient had such episode in 02/06/2019 when she presented to the ER with a locked jaw. At that time, a CAT scan of the facial bones shows anterior dislocation of both mandibular condyles . At that time ENT was consulted with Dr. Cooper, but he states that he does not handle that. Delfino Ferguson the ER physician performed the procedure. I requested Dr. Aguayo, the ENT doctor, to evaluat e this and he also states that he does not deal with mandibles. My plan is to proceed with a CAT sca n of the jaws and see if Dr. Aguayo can provide the solution. Otherwise, I called to the ER and spoke with Dr. Mendes who states that I should call ENT. Again, the patient was examined at bedside, e daughter is present. PHYSICAL EXAMINATION: VITAL SIGNS: Temperature 97.5, pulse 95, respiration is 18, blood pressure 113/53, saturation 94%. GENERAL: Mouth is open and locked. CARDIOVASCULAR: S1, S2, regular rate. LUNGS: Clear. ABDOMEN: Soft and G-tube in place. EXTREMITIES: No clubbing, cyanosis, or edema. LABORATORY DATA: No new labs today. The patient's last glucose of 186 and 158. MEDICATIONS: The patient's medications were reviewed. They include. 1. Atarax p.r.n. 2. Hydralazine p.r.n. 3. Benadryl p.r.n. 4. Morphine p.r.n. 5. ____. 6. Vitamin C 500 mg daily. 7. Folic acid 1 mg daily. 8. Tradjenta 5 mg daily. 9. Norvasc 5 mg b.i.d. 10. Colace 100 b.i.d. 11. Lopressor 50 b.i.d. 12. Ativan 4 mg at bedtime. 13. Ativan p.r.n. 14. Hypoglycemia protocol as directed. 15. DuoNeb. 16. Zyprexa. 17. Prevacid and Epogen as directed. ASSESSMENT AND PLAN: This is an 83-year-old Filip[place] female with end-stage renal disease, vascular d ementia, hypertension, diabetes mellitus, anemia, status post treatment for bacteremia, pneumonia and urinary tract infection. 1. Respiratory. Stable off oxygen. 2. Cardiovascular. Vitals remain stable with the above meds. Off blood thinners due to the need fo r transfusion. 3. Anemia. Continue Epogen and iron supplements. No evidence of active bleeding. 4. End-stage renal disease, dialysis per nephrology. Monitor electrolytes. 5. Lock jaw. Proceed with CT scan of the facial bones. ENT was consulted and not sure they will as sist me. Otherwise, the patient may need to be transferred to higher level of care which may take fo rever. It is quite challenging. Otherwise, we will discuss with the charge nurse. May we will just send him to the emergency department, despite the ER resisting assistance. 6. Psychiatric disorder. Continue on antipsychotics. 7. ____. Continue pain control. 8. Dysphagia and G-tube feeding, tolerating it well at 30 mL an hour. 9. Overall prognosis is poor due to multiple medical issues. Prolonged hospitalization, recurrent i nfections. Family is not ready to let go. I will keep comfortable, but plan to discharge on hospice with ongoing dialysis treatment. We will follow. The daughter is not realistic regarding the patie nt's condition. We will follow. Dictated By: DYLON HULL/MADAN Conf#: [id number] DID#: [id number]
--- NOTE | 2019-04-25 07:29 | PN ---
DATE: 04/23/2019 The patient is seen, appears to be comfortable. The patient to undergo G-tube placement today. PHYSICAL EXAMINATION: VITAL SIGNS: Temperature 98.3, pulse 99, respiration 18, blood pressure 172/59, saturation 99% ____ because she is unable to take her meds as she does not have a G-tube. GENERAL: No acute distress, pale. CARDIOVASCULAR: S1, S2, regular rate. LUNGS: Clear. ABDOMEN: Soft, nontender. EXTREMITIES: No clubbing, cyanosis, or edema. LABORATORY DATA: No new labs today. The patient's medications were all reviewed. The patient's glucose is 120, 124, 117. MEDICATIONS: Include: 1. Hydralazine p.r.n. 2. D5 half normal 30 mL an hour. 3. Benadryl. 4. Morphine. 5. Vitamin C. 6. Folic acid. 7. Tradjenta. 8. Norvasc. 9. Colace. 10. Lopressor. 9. Lipitor. 10. Ativan. 11. Tylenol. 12. Hypoglycemia protocol. 13. Prevacid. 14. Epogen ____. ASSESSMENT AND PLAN: This is an 83-year-old Filipina female with end-stage renal disease, vascular d ementia, hypertension, diabetes mellitus, anemia, status post treatment for bacteremia and pneumonia and urinary tract infection. 1. Respiratory. Stable off oxygen. 2. Cardiovascular. Resume all meds once G-tube is in place. 3. Anemia. Transfuse p.r.n. ____. Monitor hemoglobin and hematocrit. Continue Epogen and iron suarez pplements. 4. Endstage renal disease. Dialysis per Dr. Stringer. 5. Urinary tract infection, status post treatment for Dominique glabrata with cancidas. 6. Psychiatric disorder, on Zyprexa. 7. History of left femur surgery. Continue supportive care. 8. Dysphagia. Resume G-tube feeding at 30 mL an hour soon, once the G-tube is in place. 9. Malnutrition, low BMI. 10. Overall prognosis guarded. 11. Plan to discharge on hospice, but with dialysis, hopefully in the next day or two. Dictated By: DYLON HULL/MADAN Conf#: [id number] DID#: [id number]
--- NOTE | 2019-04-25 08:43 | CONS ---
Assessment/Plan Assessment/Plan Hospital Course (Demo Recall) 83 yo female presented with severe anemia 1. Anemia due to chronic disease 2. Diabetes mellitus. 3. End-stage renal disease. 4. Hypertension. 5. S/P Urinary tract infection. 6. Osteoarthritis 7. Dementia. 8. Recurrent fevers 9. Status post PEG 10. Anterior dislocation of both mandibular condyles, unchanged. Plan Aspiration precautions Monitor residual q 6 hours, if greater than 100 notify physician Pt examined and plan of care discussed with Dr. Baird. Consultation Date/Type/Reason Admit Date/Time Feb 19, 2019 at 01:01 Initial Consult Date Requesting Provider: JOSE RAUL ANDREWS MD Date/Time of Note DATE: 04/25/19 TIME: 08:39 24 HR Interval Summary Free Text/Dictation Tolerating tf. Residuals 10cc. HD today Exam/Review of Systems Exam Vitals Vital Signs Date Temp Pulse Resp B/P (MAP) Pulse Ox O2 O2 Flow FiO2 Time Delivery Rate 04/25/19 79 19 95 21 07:29 04/25/19 99.4 159/71 07:17 (100) 04/25/19 Room Air 02:06 Intake and Output 04/24/19 04/24/19 04/25/19 1515:00 23:00 07:00 IntakeIntake Total 198 ml BalanceBalance 198 ml Constitutional: alert Head: normocephalic Eyes: PERRL ENMT: mucosa pink and moist Respiratory: normal air movement, diminished breath sounds Cardiovascular: regular rate and rhythm Gastrointestinal: soft, non-tender Musculoskeletal: muscle weakness 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: confused Results Result Diagram: 04/22/19 0705 04/22/19 0705 Results 24hrs Laboratory Tests Test 04/24/19 08:44 04/24/19 20:43 Bedside Glucose 186 145 Medications Medication Current Medications Epoetin Michael-epbx (Retacrit (Esrd)) 4,000 unit MoWeFr@1700 SC Last administered on 04/22/19at 17:40; Admin Dose 4,000 UNIT; Start 02/28/19 at 17:00 Olanzapine (Zyprexa) 2.5 mg DAILY GTB Last administered on 04/24/19at 08:38; Admin Dose 2.5 MG; Start 03/01/19 at 09:00 Lansoprazole (Prevacid) 30 mg BID@0600,1800 GTB Last administered on 04/25/19at 05:00; Admin Dose 30 MG; Start 02/28/19 at 18:00 Albuterol/ Ipratropium (Duoneb) 3 ml Q2H RESP THERAPY PRN HHN SHORTNESS OF BREATH; Start 03/12/19 at 10:00 Miscellaneous Information 1 ea NOTE XX ; Start 03/13/19 at 16:30 Glucose (Glutose) 15 gm Q15M PRN PO DECREASED GLUCOSE; Start 03/13/19 at 16:30 Glucose (Glutose) 22.5 gm Q15M PRN PO DECREASED GLUCOSE; Start 03/13/19 at 16:30 Dextrose (D50w Syringe) 25 ml Q15M PRN IV DECREASED GLUCOSE; Start 03/13/19 at 16:30 Dextrose (D50w Syringe) 50 ml Q15M PRN IV DECREASED GLUCOSE; Start 03/13/19 at 16:30 Glucagon (Glucagen) 1 mg Q15M PRN IM DECREASED GLUCOSE; Start 03/13/19 at 16:30 Glucose (Glutose) 15 gm Q15M PRN BUCCAL DECREASED GLUCOSE; Start 03/13/19 at 16:30 Lorazepam (Ativan) 0.5 mg QID PRN GTB ANXIETY Last administered on 04/24/19 08:38; Admin Dose 0.5 MG; Start 03/23/19 at 20:00 Acetaminophen (Tylenol Liquid) 650 mg Q4H PRN GTB MILD PAIN(1-3)OR ELEVATED TEMP Last administered on 04/23/19at 20:42; Admin Dose 650 MG; Start 03/23/19 at 20:00 Amlodipine Besylate (Norvasc) 5 mg BID GTB Last administered on 04/24/19 20:39; Admin Dose 5 MG; Start 03/26/19 at 21:00 Ascorbic Acid (Vitamin C) 500 mg DAILY GTB Last administered on 04/24/19 08:38; Admin Dose 500 MG; Start 03/27/19 at 09:00 Docusate Sodium (Colace Liquid Cup) 100 mg BID GTB Last administered on 04/24/19 20:38; Admin Dose 100 MG; Start 03/26/19 at 21:00 Folic Acid (Folic Acid) 1 mg DAILY GTB Last administered on 04/24/19 08:38; Admin Dose 1 MG; Start 03/27/19 at 09:00 Linagliptin (Tradjenta) 5 mg DAILY PO Last administered on 04/24/19 08:38; Admin Dose 5 MG; Start 03/27/19 at 09:00 Metoprolol Tartrate (Lopressor) 50 mg BID GTB Last administered on 04/24/19 20:38; Admin Dose 50 MG; Start 03/26/19 at 21:00 Atorvastatin Calcium (Lipitor) 40 mg HS GTB Last administered on 04/24/19 20:38; Admin Dose 40 MG; Start 03/26/19 at 21:00 Diagnostic Test (Pha) (Accu-Chek) 1 ea Q12 XX Last administered on 04/24/19 20:49; Admin Dose 1 EA; Start 03/28/19 at 20:00 Morphine Sulfate (morphine) 2 mg Q6H PRN IV SEVERE PAIN LEVEL 7-10 Last administered on 04/24/19 17:57; Admin Dose 2 MG; Start 04/05/19 at 16:30 Diphenhydramine HCl (Benadryl Liquid Cup) 25 mg Q6H PRN GTB ITCHING Last administered on 04/24/19at 23:43; Admin Dose 25 MG; Start 04/16/19 at 11:00 Hydralazine HCl (Apresoline) 10 mg Q4H PRN IV ELEVATED BLOOD PRESSURE Last administered on 04/24/19at 22:21; Admin Dose 10 MG; Start 04/22/19 at 20:00 Hydroxyzine HCl (Atarax) 25 mg Q6H PRN GTB ITCHING; Start 04/23/19 at 15:00 Carisoprodol (Soma) 350 mg TID GTB ; Start 04/24/19 at 21:00 Acetaminophen (Tylenol Tab) 1,000 mg DAILY PRN PO MILD PAIN(1-3)OR ELEVATED TE MP; Start 04/24/19 at 22:30 Acetaminophen (Tylenol Tab) 1,000 mg Q4H PRN PO PAIN LEVEL 4-6/10; Start 04/24/19 at 22:30 Bisacodyl (Dulcolax Supp) 10 mg DAILY [place] ; Start 04/25/19 at 09:00 Insulin Glargine (Lantus) 4 units QHS SC ; Start 04/25/19 at 21:00 Albuterol/ Ipratropium (Duoneb) 3 ml Q6H RESP THERAPY NEB Last administered on 04/25/19at 07:29; Admin Dose 3 ML; Start 04/25/19 at 00:00 Metoclopramide HCl (Reglan) 5 mg Q6H PRN GTB NAUSEA AND/OR VOMITING; Start 04/24/19 at 22:30 Metoprolol Tartrate (Lopressor) 50 mg DAILY PO ; Start 04/25/19 at 09:00 Polyethylene Glycol (Miralax) 17 gm Q24H GTB Last administered on 04/24/19at 22:30; Admin Dose 17 GM; Start 04/24/19 at 22:30 Quetiapine Fumarate (Seroquel) 25 mg BID PO ; Start 04/25/19 at 09:00 Senna (Senokot) 1 tab BID PO ; Start 04/25/19 at 09:00 TONY VENCES Apr 25, 2019 08:43
[2019-04-25] MEDS ORDERED: BISACODYL 10 MG SUPP PR SCH (09:00)
[2019-04-25] MEDS ORDERED: METOPROLOL 50 MG TAB PO SCH (09:00)
[2019-04-25] MEDS ORDERED: QUETIAPINE 25 MG TAB PO SCH (09:00)
[2019-04-25] MEDS ORDERED: SENNA TAB PO SCH (09:00)
[2019-04-25] MEDS: ACCU-CHEK XX SCH (10:00)
[2019-04-25] MEDS: OLANZAPINE 2.5 MG TAB GTB SCH (13:42)
[2019-04-25] MEDS: ASCORBIC ACID 500 MG TAB GTB SCH (13:42)
[2019-04-25] MEDS: AMLODIPINE 5 MG TAB GTB SCH (13:43)
[2019-04-25] MEDS: CARISOPRODOL 350 MG TAB GTB SCH ×2 (13:43→14:19)
[2019-04-25] MEDS: DOCUSATE SODIUM 10 MG/ML (10ML CUP) GTB SCH (13:43)
[2019-04-25] MEDS: METOPROLOL 50 MG TAB GTB SCH (13:44)
[2019-04-25] MEDS: FOLIC ACID 1 MG TAB GTB SCH (13:44)
[2019-04-25] MEDS: LINAGLIPTIN 5 MG TABLET PO SCH (14:00)
--- NOTE | 2019-04-25 14:27 | CONS ---
Assessment/Plan Assessment/Plan Assessment/Plan (Daily) 1 End-stage renal disease on hemodialysis.MWF 2. Anemia of chronic disease 3. Urinary tract infection, now has yeast in urine. 4. Hypertension, controlled. 5. Dementia. 6. Diabetes mellitus type II. 7. Diastolic heart failure. 8. Moderate protein energy malnutrition with cachexia. 9. Osteoarthritis. 10. GT status Assessment/Plan (Daily) - HD MWF hd today - Hopsice with HD today -c/w Epogen -c/w HD Consultation Date/Type/Reason Admit Date/Time Feb 19, 2019 at 01:01 Initial Consult Date Requesting Provider: JOSE RAUL ANDREWS MD Date/Time of Note DATE: 04/25/19 TIME: 14:24 24 HR Interval Summary Free Text/Dictation doing well HD today going home with hospice Exam/Review of Systems Exam Vitals Vital Signs Date Temp Pulse Resp B/P (MAP) Pulse Ox O2 O2 Flow FiO2 Time Delivery Rate 04/25/19 80 11:34 04/25/19 20 154/71 Room Air 07:45 (98) 04/25/19 95 21 07:29 04/25/19 99.4 07:17 Intake and Output 04/24/19 04/24/19 04/25/19 1515:00 23:00 07:00 IntakeIntake Total 198 ml BalanceBalance 198 ml Exam left permacath Results Result Diagram: 04/22/19 0705 04/22/19 0705 Results 24hrs Laboratory Tests Test 04/24/19 20:43 04/25/19 09:49 Bedside Glucose 145 142 Medications Medication Current Medications Epoetin Michael-epbx (Retacrit (Esrd)) 4,000 unit MoWeFr@1700 SC Last administered on 04/22/19at 17:40; Admin Dose 4,000 UNIT; Start 02/28/19 at 17:00 Olanzapine (Zyprexa) 2.5 mg DAILY GTB Last administered on 04/25/19at 13:42; Admin Dose 2.5 MG; Start 03/01/19 at 09:00 Lansoprazole (Prevacid) 30 mg BID@0600,1800 GTB Last administered on 04/25/19at 05:00; Admin Dose 30 MG; Start 02/28/19 at 18:00 Albuterol/ Ipratropium (Duoneb) 3 ml Q2H RESP THERAPY PRN HHN SHORTNESS OF BREATH; Start 03/12/19 at 10:00 Miscellaneous Information 1 ea NOTE XX ; Start 03/13/19 at 16:30 Glucose (Glutose) 15 gm Q15M PRN PO DECREASED GLUCOSE; Start 03/13/19 at 16:30 Glucose (Glutose) 22.5 gm Q15M PRN PO DECREASED GLUCOSE; Start 03/13/19 at 16:30 Dextrose (D50w Syringe) 25 ml Q15M PRN IV DECREASED GLUCOSE; Start 03/13/19 at 16:30 Dextrose (D50w Syringe) 50 ml Q15M PRN IV DECREASED GLUCOSE; Start 03/13/19 at 16:30 Glucagon (Glucagen) 1 mg Q15M PRN IM DECREASED GLUCOSE; Start 03/13/19 at 16:30 Glucose (Glutose) 15 gm Q15M PRN BUCCAL DECREASED GLUCOSE; Start 03/13/19 at 16:30 Lorazepam (Ativan) 0.5 mg QID PRN GTB ANXIETY Last administered on 04/24/19at 08:38; Admin Dose 0.5 MG; Start 03/23/19 at 20:00 Acetaminophen (Tylenol Liquid) 650 mg Q4H PRN GTB MILD PAIN(1-3)OR ELEVATED TEMP Last administered on 04/23/19 20:42; Admin Dose 650 MG; Start 03/23/19 at 20:00 Amlodipine Besylate (Norvasc) 5 mg BID GTB Last administered on 04/25/19 13:43; Admin Dose 5 MG; Start 03/26/19 at 21:00 Ascorbic Acid (Vitamin C) 500 mg DAILY GTB Last administered on 04/25/19 13:42; Admin Dose 500 MG; Start 03/27/19 at 09:00 Docusate Sodium (Colace Liquid Cup) 100 mg BID GTB Last administered on 04/25/19 13:43; Admin Dose 100 MG; Start 03/26/19 at 21:00 Folic Acid (Folic Acid) 1 mg DAILY GTB Last administered on 04/25/19 13:44; Admin Dose 1 MG; Start 03/27/19 at 09:00 Linagliptin (Tradjenta) 5 mg DAILY PO Last administered on 04/25/19at 14:00; Admin Dose 5 MG; Start 03/27/19 at 09:00 Metoprolol Tartrate (Lopressor) 50 mg BID GTB Last administered on 04/25/19 13:44; Admin Dose 50 MG; Start 03/26/19 at 21:00 Atorvastatin Calcium (Lipitor) 40 mg HS GTB Last administered on 04/24/19 20:38; Admin Dose 40 MG; Start 03/26/19 at 21:00 Diagnostic Test (Pha) (Accu-Chek) 1 ea Q12 XX Last administered on 04/25/19at 10:00; Admin Dose 1 EA; Start 03/28/19 at 20:00 Morphine Sulfate (morphine) 2 mg Q6H PRN IV SEVERE PAIN LEVEL 7-10 Last administered on 04/24/19 17:57; Admin Dose 2 MG; Start 04/05/19 at 16:30 Diphenhydramine HCl (Benadryl Liquid Cup) 25 mg Q6H PRN GTB ITCHING Last administered on 04/24/19at 23:43; Admin Dose 25 MG; Start 04/16/19 at 11:00 Hydralazine HCl (Apresoline) 10 mg Q4H PRN IV ELEVATED BLOOD PRESSURE Last administered on 04/24/19 22:21; Admin Dose 10 MG; Start 04/22/19 at 20:00 Hydroxyzine HCl (Atarax) 25 mg Q6H PRN GTB ITCHING; Start 04/23/19 at 15:00 Carisoprodol (Soma) 350 mg TID GTB Last administered on 04/25/19 13:43; Admin Dose 350 MG; Start 04/24/19 at 21:00 Acetaminophen (Tylenol Tab) 1,000 mg DAILY PRN PO MILD PAIN(1-3)OR ELEVATED TEMP; Start 04/24/19 at 22:30 Acetaminophen (Tylenol Tab) 1,000 mg Q4H PRN PO PAIN LEVEL 4-6/10; Start 04/24/19 at 22:30 Bisacodyl (Dulcolax Supp) 10 mg DAILY OR Last administered on 04/25/19at 14:00; Admin Dose 10 MG; Start 04/25/19 at 09:00 Insulin Glargine (Lantus) 4 units QHS SC ; Start 04/25/19 at 21:00 Albuterol/ Ipratropium (Duoneb) 3 ml Q6H RESP THERAPY NEB Last administered on 04/25/19 07:29; Admin Dose 3 ML; Start 04/25/19 at 00:00 Metoclopramide HCl (Reglan) 5 mg Q6H PRN GTB NAUSEA AND/OR VOMITING; Start 04/24/19 at 22:30 Metoprolol Tartrate (Lopressor) 50 mg DAILY PO Last administered on 04/25/19 13:45; Admin Dose 50 MG; Start 04/25/19 at 09:00 Polyethylene Glycol (Miralax) 17 gm Q24H GTB Last administered on 04/24/19 22:30; Admin Dose 17 GM; Start 04/24/19 at 22:30 Quetiapine Fumarate (Seroquel) 25 mg BID PO Last administered on 04/25/19 13:42; Admin Dose 25 MG; Start 04/25/19 at 09:00 Senna (Senokot) 1 tab BID PO Last administered on 04/25/19 13:42; Admin Dose 1 TAB; Start 04/25/19 at 09:00 JOSE RAUL ANDREWS MD Apr 25, 2019 14:27
[2019-04-25] MEDS ORDERED: BENS GTB (15:16)
[2019-04-25] MEDS ORDERED: METO-429 PO (15:16)
[2019-04-25] MEDS ORDERED: CLON-429 PO (15:16)
[2019-04-25] MEDS ORDERED: AMLO5TAB4 GTB (15:17)
--- NOTE | 2019-04-25 15:27 | CONS ---
Assessment/Plan Assessment/Plan Hospital Course (Demo Recall) No acute changes Blood cx neg, urine culture +yeast, s/p Cancidas Indwelling: Left subclavian permacath, PEG Physical examination: This is a chronically ill-appearing wasted elderly woman w ho is in no distress. Head atraumatic normocephalic. Neck is supple. Chest rise symmetrical patient is mildly tachypneic with expiratory wheezes. Heart: S1-S2, tachycardic. Abdomen soft bowel sounds present. Extremities without cyanosis edema. Assessment: 1. Systemic inflammatory response syndrome with low-grade fevers, rule out aspiration versus recurrent UTI 2. Status post recurrent UTI and bacteremia 4. End-stage renal disease, hemodialysis dependent 5. Anemia 6. 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 Plan: Clinically unchanged, continue aspiration precautions HD per renal Consultation Date/Type/Reason Admit Date/Time Feb 19, 2019 at 01:01 Initial Consult Date Type of Consult id Requesting Provider: JOSE RAUL ANDREWS MD Date/Time of Note DATE: 04/25/19 TIME: 15:26 Exam/Review of Systems Exam Vitals Vital Signs Date Temp Pulse Resp B/P (MAP) Pulse Ox O2 O2 Flow FiO2 Time Delivery Rate 04/25/19 80 11:34 04/25/19 20 154/71 Room Air 07:45 (98) 04/25/19 95 21 07:29 04/25/19 99.4 07:17 Intake and Output 04/24/19 04/24/19 04/25/19 1515:00 23:00 07:00 IntakeIntake Total 198 ml BalanceBalance 198 ml Results Result Diagram: 04/22/19 0704/22/19 0705 Results 24hrs Laboratory Tests Test 04/24/19 20:43 04/25/19 09:49 Bedside Glucose 145 142 Medications Medication Current Medications Epoetin Michael-epbx (Retacrit (Esrd)) 4,000 unit MoWeFr@1700 SC Last administered on 04/22/19at 17:40; Admin Dose 4,000 UNIT; Start 02/28/19 at 17:00 Olanzapine (Zyprexa) 2.5 mg DAILY GTB Last administered on 04/25/19at 13:42; Admin Dose 2.5 MG; Start 03/01/19 at 09:00 Lansoprazole (Prevacid) 30 mg BID@0600,1800 GTB Last administered on 04/25/19at 05:00; Admin Dose 30 MG; Start 02/28/19 at 18:00 Albuterol/ Ipratropium (Duoneb) 3 ml Q2H RESP THERAPY PRN HHN SHORTNESS OF BREATH; Start 03/12/19 at 10:00 Miscellaneous Information 1 ea NOTE XX ; Start 03/13/19 at 16:30 Glucose (Glutose) 15 gm Q15M PRN PO DECREASED GLUCOSE; Start 03/13/19 at 16:30 Glucose (Glutose) 22.5 gm Q15M PRN PO DECREASED GLUCOSE; Start 03/13/19 at 16:30 Dextrose (D50w Syringe) 25 ml Q15M PRN IV DECREASED GLUCOSE; Start 03/13/19 at 16:30 Dextrose (D50w Syringe) 50 ml Q15M PRN IV DECREASED GLUCOSE; Start 03/13/19 at 16:30 Glucagon (Glucagen) 1 mg Q15M PRN IM DECREASED GLUCOSE; Start 03/13/19 at 16:30 Glucose (Glutose) 15 gm Q15M PRN BUCCAL DECREASED GLUCOSE; Start 03/13/19 at 16:30 Lorazepam (Ativan) 0.5 mg QID PRN GTB ANXIETY Last administered on 04/24/19at 08:38; Admin Dose 0.5 MG; Start 03/23/19 at 20:00 Acetaminophen (Tylenol Liquid) 650 mg Q4H PRN GTB MILD PAIN(1-3)OR ELEVATED TEMP Last administered on 04/23/19at 20:42; Admin Dose 650 MG; Start 03/23/19 at 20:00 Amlodipine Besylate (Norvasc) 5 mg BID GTB Last administered on 04/25/19at 13:43; Admin Dose 5 MG; Start 03/26/19 at 21:00 Ascorbic Acid (Vitamin C) 500 mg DAILY GTB Last administered on 04/25/19at 13:42; Admin Dose 500 MG; Start 03/27/19 at 09:00 Docusate Sodium (Colace Liquid Cup) 100 mg BID GTB Last administered on 04/25/19at 13:43; Admin Dose 100 MG; Start 03/26/19 at 21:00 Folic Acid (Folic Acid) 1 mg DAILY GTB Last administered on 04/25/19 13:44; Admin Dose 1 MG; Start 03/27/19 at 09:00 Linagliptin (Tradjenta) 5 mg DAILY PO Last administered on 04/25/19 14:00; Admin Dose 5 MG; Start 03/27/19 at 09:00 Metoprolol Tartrate (Lopressor) 50 mg BID GTB Last administered on 04/25/19 13:44; Admin Dose 50 MG; Start 03/26/19 at 21:00 Atorvastatin Calcium (Lipitor) 40 mg HS GTB Last administered on 04/24/19 20:38; Admin Dose 40 MG; Start 03/26/19 at 21:00 Diagnostic Test (Pha) (Accu-Chek) 1 ea Q12 XX Last administered on 04/25/19 10:00; Admin Dose 1 EA; Start 03/28/19 at 20:00 Morphine Sulfate (morphine) 2 mg Q6H PRN IV SEVERE PAIN LEVEL 7-10 Last administered on 04/24/19 17:57; Admin Dose 2 MG; Start 04/05/19 at 16:30 Diphenhydramine HCl (Benadryl Liquid Cup) 25 mg Q6H PRN GTB ITCHING Last administered on 04/24/19 23:43; Admin Dose 25 MG; Start 04/16/19 at 11:00 Hydralazine HCl (Apresoline) 10 mg Q4H PRN IV ELEVATED BLOOD PRESSURE Last administered on 04/24/19 22:21; Admin Dose 10 MG; Start 04/22/19 at 20:00 Hydroxyzine HCl (Atarax) 25 mg Q6H PRN GTB ITCHING; Start 04/23/19 at 15:00 Carisoprodol (Soma) 350 mg TID GTB Last administered on 04/25/19 13:43; Admin Dose 350 MG; Start 04/24/19 at 21:00 Acetaminophen (Tylenol Tab) 1,000 mg DAILY PRN PO MILD PAIN(1-3)OR ELEVATED TEMP; Start 04/24/19 at 22:30 Acetaminophen (Tylenol Tab) 1,000 mg Q4H PRN PO PAIN LEVEL 4-6/10; Start 04/24/19 at 22:30 Bisacodyl (Dulcolax Supp) 10 mg DAILY KS Last administered on 04/25/19at 14:00; Admin Dose 10 MG; Start 04/25/19 at 09:00 Insulin Glargine (Lantus) 4 units QHS SC ; Start 04/25/19 at 21:00 Albuterol/ Ipratropium (Duoneb) 3 ml Q6H RESP THERAPY NEB Last administered on 04/25/19at 07:29; Admin Dose 3 ML; Start 04/25/19 at 00:00 Metoclopramide HCl (Reglan) 5 mg Q6H PRN GTB NAUSEA AND/OR VOMITING; Start 04/24/19 at 22:30 Metoprolol Tartrate (Lopressor) 50 mg DAILY PO Last administered on 04/25/19 13:45; Admin Dose 50 MG; Start 04/25/19 at 09:00 Polyethylene Glycol (Miralax) 17 gm Q24H GTB Last administered on 04/24/19at 22:30; Admin Dose 17 GM; Start 04/24/19 at 22:30 Quetiapine Fumarate (Seroquel) 25 mg BID PO Last administered on 04/25/19at 13:42; Admin Dose 25 MG; Start 04/25/19 at 09:00 Senna (Senokot) 1 tab BID PO Last administered on 04/25/19 13:42; Admin Dose 1 TAB; Start 04/25/19 at 09:00 PHYLICIA HOLCOMB NP Apr 25, 2019 15:27
--- NOTE | 2019-04-25 15:28 | PDOCDIS ---
Discharge Instructions CONDITION [id number] Patient Condition: [id number] Stable HOME CARE INSTRUCTIONS: [id number] Special Diet: Ttnyl2s novasource 30mL/hr ACTIVITY: [id number] Activity Restrictions: [id number] Slowly Increase Activity Rest between Activity Avoid heavy lifting Avoid Heavy Housework [id number] Bathing Restrictions: [id number] Shower FOLLOW UP/APPOINTMENTS Follow-up Plan home with hospice, continue HD as planned DYLON WALLS MD Apr 25, 2019 15:28
[2019-04-25] MEDS: EPOETIN ALFA-EPBX (ESRD) 4,000 UNIT/ML VIAL SC SCH (17:26)
[2019-04-25] MEDS ORDERED: INSULIN GLARGINE [LANTus] (100 UNITS/ML) SYG SC SCH (21:00)
--- NOTE | 2019-04-26 09:23 | DS ---
DATE OF ADMISSION: 02/19/2019 DATE OF DISCHARGE: 04/25/2019 REASON FOR ADMISSION: Fevers, UTI and anemia. HOSPITAL COURSE: The patient is a very unfortunate, very sick 83-year-old Filip[place] female, very well known to me with history of advanced dementia, end-stage renal disease on dialysis 3 times a week, h ypertension, diastolic dysfunction, heart failure, diabetes mellitus, anxiety disorder, anemia, COPD, dysphagia, G-tube feeding, with moderate caloric monitor protein malnutrition, dysphagia has been ho spitalized multiple times for the past few months, now presents again with fever, was found to have U TI and ongoing anemia. The patient has been hospitalized now for a prolonged period of time. See my discharge summaries dictated earlier on 03/04/2019 and 03/18/2019. Patient during her stay, was tr eated for aspiration pneumonia, bacteremia, urinary tract infection, line sepsis. She was treated wi th antifungal treatment for UTI Dominique glabrata. Also, she had the Perm-A-Cath exchange due to the blood cultures which shows enterococcus. The patient was seen by multiple physicians throughout her stay as well and placed on 1:1 sitter with restraints at times due to risk of pulling lines out. The patient did slow G-tube and it was exchanged. Ultimately, also patient had yesterday episode of loc ked jaw. as she had anterior dislocation of the mandible. Yesterday I called Dr. Voss, the ENT spec ialist, who states that he is not comfortable doing such procedure as he is not trained to do so, so I called the ER and I spoke with Dr. Beltrán and he was graciously agreeing to perform the procedur e. The patient was transferred briefly to the intensive care unit for that procedure to be done, but no sedation was done and patient tolerated the reduction well. The patient then transferred to the regular floor and family ultimately opted for hospice care, but to continue dialysis as patient's ove rall prognosis is guarded. The patient's daughter stated that she will get extra help with the care of her mother. Again, patient planned to discharge today. During her stay, she received multiple un its of PRBCs. There was no evidence of active bleeding. She was seen by the GI specialist, Dr. Sheldon palomares, the infectious disease specialist, Dr. Proctor, the renal specialist, Dr. Juliocesar Stringer and Dr. Rj Natarajan, and the vascular surgeon. Ultimately, the patient has been now more stable, she can be discharged with the following medications: 1. Hydralazine 25 t.i.d. 2. Seroquel 25 b.i.d. 3. Renvela 1.6 t.i.d. 4. MiraLax 17 grams daily. 5. Prevacid 30 mg daily. 6. Benadryl 25 q.8h. p.r.n. for pruritus. 7. 25 b.i.d. 8. Metoprolol tartrate 25 b.i.d. 9. Amlodipine 5 mg daily. 10. Atorvastatin 40 mg at bedtime. 11. Tradjenta 5 mg daily. 12. Insulin Levemir 4 units at bedtime. 13. Nephro-Roque 1 tab daily. 14. Klonopin 0.5 q.4h. p.r.n. for anxiety. FINAL DIAGNOSES: Includes: 1. Sepsis. 2. Urinary tract infection. 3. Bacteremia. 4. Aspiration pneumonia. 5. Advanced vascular dementia. 6. End-stage renal disease. 7. Hypertension. 8. Diabetes mellitus. 9. Anemia requiring transfusion. Rule out gastrointestinal bleed. 10. Anxiety disorder. 11. History of VRE and fungemia and Dominique glabrata infection. 12. Osteoarthritis. 13. Chronic obstructive pulmonary disease. 14. Diastolic dysfunction heart failure. 15. Dysphagia. G-tube feeding. 16. Bilateral mandibular dislocation. 17. Status post multiple orthopedic surgery. Most notably, the recent one is the left femur surgery , status post fracture. 18. End-stage renal disease on dialysis 3 times a week. Overall, long-term prognosis is poor. The patient with poor quality of life. She has dysphagia with G-tube feeding and severe caloric-protein malnutrition, on dialysis. Hospice is definitely appropr iate. I would also recommend to discontinue dialysis but her daughter would like to continue that fo r now. Case discussed with the daughter on a regular basis throughout the patient's stay. Dictated By: DYLON HULL/MADAN Conf#: [id number] DID#: [id number]
== END 2019-04-25 17:58 | disposition hospice, home (50) | DRG 252 ==
LOC: E/R 21:02 → 6WM 02-19 01:01 → 5EC 03-04 22:18 → 6WM 03-12 10:29 → 5EC 03-28 12:26 → ICU 04-24 21:18 → 5EC 04-24 23:40
PROVIDERS: ADMIT Internal Medicine; ATTEND Internal Medicine
PROC: 30233N1 Transfusion of Nonautologous Red Blood Cells into Peripheral Vein, Percutaneous Approach (ICD-10-PCS; 2019-02-18)
PROC: 5A09557 Assistance with Respiratory Ventilation, Greater than 96 Consecutive Hours, Continuous Positive Airway Pressure (ICD-10-PCS; 2019-02-19)
PROC: B518YZZ Fluoroscopy of Superior Vena Cava using Other Contrast (ICD-10-PCS; 2019-02-24)
PROC: 05PYX3Z Removal of Infusion Device from Upper Vein, External Approach (ICD-10-PCS; 2019-02-24)
PROC: 02H633Z Insertion of Infusion Device into Right Atrium, Percutaneous Approach (ICD-10-PCS; 2019-02-24)
PROC: 03723ZZ Dilation of Innominate Artery, Percutaneous Approach (ICD-10-PCS; principal; 2019-02-24 07:30)
PROC: 027V3ZZ Dilation of Superior Vena Cava, Percutaneous Approach (ICD-10-PCS; 2019-02-24 07:30)
PROC: 0D20XUZ Change Feeding Device in Upper Intestinal Tract, External Approach (ICD-10-PCS; 2019-04-23)
DX: T80.211A Bloodstream infection due to central venous catheter, initial encounter (principal); A41.9 Sepsis, unspecified organism; N18.6 End stage renal disease; E43 Unspecified severe protein-calorie malnutrition; J69.0 Pneumonitis due to inhalation of food and vomit; J96.01 Acute respiratory failure with hypoxia; B37.49 Other urogenital candidiasis; I13.2 Hypertensive heart and chronic kidney disease with heart failure and with stage 5 chronic kidney disease, or end stage renal disease; I50.32 Chronic diastolic (congestive) heart failure; R64 Cachexia; Z68.1 Body mass index [BMI] 19.9 or less, adult; E87.2 Acidosis; K94.23 Gastrostomy malfunction; N39.0 Urinary tract infection, site not specified; T82.838A Hemorrhage due to vascular prosthetic devices, implants and grafts, initial encounter; D62 Acute posthemorrhagic anemia; J44.9 Chronic obstructive pulmonary disease, unspecified; E11.22 Type 2 diabetes mellitus with diabetic chronic kidney disease; Z99.2 Dependence on renal dialysis; Z93.1 Gastrostomy status; G40.909 Epilepsy, unspecified, not intractable, without status epilepticus; F03.90 Unspecified dementia, unspecified severity, without behavioral disturbance, psychotic disturbance, mood disturbance, and anxiety; F20.9 Schizophrenia, unspecified; F41.9 Anxiety disorder, unspecified; R13.10 Dysphagia, unspecified; I48.91 Unspecified atrial fibrillation; E78.5 Hyperlipidemia, unspecified; D63.1 Anemia in chronic kidney disease; M19.91 Primary osteoarthritis, unspecified site; B95.2 Enterococcus as the cause of diseases classified elsewhere; Z87.440 Personal history of urinary (tract) infections; Y84.9 Medical procedure, unspecified as the cause of abnormal reaction of the patient, or of later complication, without mention of misadventure at the time of the procedure; F01.50 Vascular dementia, unspecified severity, without behavioral disturbance, psychotic disturbance, mood disturbance, and anxiety; R62.7 Adult failure to thrive; Z66 Do not resuscitate; S03.03XA Dislocation of jaw, bilateral, initial encounter; X58.XXXA Exposure to other specified factors, initial encounter
CPT/HCPCS: 36415; 36430; 36600; 36907; 37248; 70486; 71045; 73550; 80048; 80053; 80202; 81001; 82270; 82607; 82728; 82746; 82803; 82962; 83540; 83605; 83735; 84100; 84484; 85018; 85025; 85045; 85610; 85730; 86704; 86850; 86900; 86901; 86920; 87045; 87081; 87086; 87340; 90935; 93005; 93308; 93971; 94640; 94660; 94664; 97110; 97163; 97166; 97530; C1894; J0290; J0360; J1644; J1815; J1940; J2060; J2185; J2270; J2543; J3010; J3370; J7042; J7050; P9016; Q4081; Q5105; Q9967